=== PATIENT | female | born 1950 | race Caucasian/White ===

== ENCOUNTER 2022-10-23 18:53 | Emergency (ER) | payer OTHER, SELFPAY ==
[2022-10-23 19:00] VITALS: BP 128/68; PULSE 64; RESP 18; TEMP 36.3; O2SAT 100
[2022-10-23 20:10] VITALS: BP 125/58; PULSE 74; RESP 18; O2SAT 98
--- NOTE | 2022-10-23 20:25 | ED_ITS ---
HPI - Weakness General Chief complaint: Headache Stated complaint: GENERAL WEAKNESS Time Seen by Provider: 10/23/22 20:24 Source: patient and family Mode of arrival: walk-in Limitations: no limitations History of Present Illness HPI Narrative: history of headache. Always behind the right eye. On and off since july 2022. States usually she can go to sleep and the headache resolves. Same SARABIA now for 3 days. Also feels weak. No energy. Does have nausea. No focal weakness. No chest pain or shortness of breath. denies neck pain or stiffness MD Complaint: Reports generalized weakness Onset (ago): day(s) Associated symptoms: Reports nausea/vomiting Related Data Home Medications Medication Instructions Recorded Confirmed apixaban 5 mg tablet (Eliquis) 5 mg PO Q12H 10/23/22 10/23/22 atorvastatin 40 mg tablet 40 mg PO DAILY 10/23/22 10/23/22 carvedilol 12.5 mg tablet 12.5 mg PO Q12H 10/23/22 10/23/22 diltiazem HCl 120 mg 120 mg PO Q24H 10/23/22 10/23/22 capsule,extended release 24 hr duloxetine 60 mg capsule,delayed 60 mg PO DAILY 10/23/22 10/23/22 release famotidine 20 mg tablet 20 mg PO PRN GERD 10/23/22 Allergies Allergy/AdvReac Type Severity Reaction Status Date / Time latex Allergy Unknown Verified 10/23/22 19:09 Review of Systems ROS Status of ROS 10 or more systems reviewed and unremarkable except as noted in history and below [facility] Social History Smoking status: Never smoker Exam Constitutional Vital Signs - 24 hr 10/23/22 19:00 10/23/22 20:10 Temperature 97.3 F L Pulse Rate [Monitor] 64 74 Respiratory Rate 18 18 Blood Pressure [Right Arm] 128/68 H 125/58 H Pulse Oximetry 100 98 Oxygen Delivery Method Room Air Room Air HENCA Common normals: normocephalic and head/scalp atraumatic Eye Common normals: PERRL, EOMs intact bilaterally and conjunctivae normal Eyelid: eyelids normal Conjunctiva: conjunctiva(e) normal Neck & C-Spine Common normals: full ROM and no lymphadenopathy General: normal visual inspection Chest Common normals: inspection of chest normal Respiratory Common normals: no use of accessory muscles and clear to auscultation bilaterally Cardio Common normals: regular rhythm, S2 normal heart sound (mechanical valve sound) and no murmurs GI Common normals: Normal to inspection, nondistended, normoactive bowel sounds present Palpation: tender Other: mild tenderness LLQ Back & Pelvis Common normals: no CVA tenderness Extremity Common normals: normal to inspection and no joint enlargement Neuro Common normals: oriented x3, CN's II-XII intact bilaterally, moves all extremities, no focal motor deficits and no sensory deficits noted Psych Common normals: mental status grossly normal Course Vital Signs Vital signs: Vital Signs Temperature 97.3 F L 10/23/22 19:00 Pulse Rate 64 10/23/22 19:00 Respiratory Rate 18 10/23/22 19:00 Blood Pressure 128/68 H 10/23/22 19:00 Pulse Oximetry 100 10/23/22 19:00 Oxygen Delivery Method Room Air 10/23/22 19:00 Temperature 97.3 F L 10/23/22 19:00 Pulse Rate 74 10/23/22 20:10 Respiratory Rate 18 10/23/22 20:10 Blood Pressure 125/58 H 10/23/22 20:10 Pulse Oximetry 98 10/23/22 20:10 Oxygen Delivery Method Room Air 10/23/22 20:10 MDM - Weakness MDM Narrative Medical decision making narrative: patient is feeling better. Headache is much improved. she is requesting discharge at this time. POC blood sugar elevated at 200 and will need follow up. she also has elevated creat that will need follow up. Patient and her informed of this information and will follow up with her doctor Lab Data Labs: Lab Results 10/23/22 10/23/22 10/23/22 Range/Units 20:20 20:45 22:54 WBC 10.9 (4.0-11.0) 10^3/uL RBC 4.09 L (4.20-5.40) 10^6/uL Hgb 11.8 L (12.0-16.0) g/dL Hct 35.2 L (36.0-48.0) % MCV 86.1 (81.0-99.0) fL MCH 28.9 (26.7-34.0) pg MCHC 33.5 (29.9-35.2) g/dL RDW 12.5 (11.0-15.0) % Plt Count 223 (150-450) 10^3/uL MPV 9.1 L (9.5-13.5) fL Neut % (Auto) 57.5 (43.0-75.0) % Lymph % (Auto) 30.5 (20.5-60.0) % Storey % (Auto) 8.4 (1.7-12.0) % Eos % (Auto) 2.4 (0.9-7.0) % Baso % (Auto) 0.8 (0.2-2.0) % Neut # (Auto) 6.3 (1.4-6.5) 10^3/uL Lymph # (Auto) 3.3 (1.2-3.8) 10^3/uL [place] # (Auto) 0.9 H (0.3-0.8) 10^3/uL Eos # (Auto) 0.3 (0.0-0.7) 10^3/uL Baso # (Auto) 0.1 (0.0-0.1) 10^3/uL Sodium 138 (136-145) mmol/L Potassium 4.1 (3.5-5.1) mmol/L Chloride 101 (98-107) mmol/L Carbon Dioxide 29.9 (21.0-32.0) mmol/L Anion Gap 11.2 BUN 21.0 H (7.0-18.0) mg/dL Creatinine 1.86 H (0.55-1.02) mg/dL Est GFR ( Amer) 32 L (>=60) Est GFR (Non-Af Amer) 27 L (>=60) BUN/Creatinine Ratio 11.3 Glucose 68 L (74-106) mg/dL Calcium 9.9 (8.5-10.1) mg/dL Urine Color Lt. yellow (YELLOW) Urine Clarity Clear (CLEAR) Urine pH 6.5 (5.0-9.0) Ur Specific Mammoth 1.010 (1.005-1.025) Urine Protein Negative (NEG/TRACE) mg/dL Urine Glucose (UA) Negative (NEGATIVE) mg/dL Urine Ketones Negative (NEGATIVE) mg/dL Urine Occult Blood Negative (NEGATIVE) Urine Nitrite Negative (NEGATIVE) Urine Bilirubin Negative (NEGATIVE) Urine Urobilinogen 0.2 (0.2-1.0) EU/dL Ur Leukocyte Esterase Small A (NEGATIVE) Urine RBC 0-2 (0-2) #/HPF Urine WBC 0-2 A (NONE SEEN) #/HPF Ur Squamous Epith Cells Few A (NONE/RARE) #/LPF Ur Culture Indicated? No POC Glucose 209 H (74-106) mg/dL Discharge Plan Discharge Chief Complaint: Headache Clinical Impression: Migraine, Headache Patient Disposition: Home, Self-Care Prescriptions / Home Meds: No Action Eliquis 5 mg tablet 5 mg PO Q12H atorvastatin 40 mg tablet 40 mg PO DAILY carvedilol 12.5 mg tablet 12.5 mg PO Q12H diltiazem HCl 120 mg capsule,extended release 24hr 120 mg PO Q24H duloxetine 60 mg capsule,delayed release(DR/EC) 60 mg PO DAILY famotidine 20 mg tablet 20 mg PO PRN (Reason: GERD) Instructions: Migraine Headache (ED) Stand Alone Forms: Portal Instructions Referrals: GÓMEZ HERNANDEZ [Primary Care Provider] - 1 week Follow Up Appointments: follow up with family doctor next week for recheck. also need renal function and glucose rechecked
--- NOTE | 2022-10-23 20:40 | CT_ITS ---
The [address] [address] Patient Name: DIONICIO DELANEY MRN: [id number] date: 1950 Sex: F Assigned Patient Location: ER Current Patient Location: ER Accession/Order Number: [id number] Exam Date: 10/23/2022 21:07 Report Date: 10/23/2022 22:09 At the request of: PETAR SHEEHAN Procedure: CT head/brain wo con NONCONTRAST CT SCAN OF THE HEAD CT head/brain wo con HISTORY:: headache in a 71-year-old female TECHNIQUE: Multiple axial images are taken from the level the vertex down to the base of the skull without the use of IV contrast. Images were then reconstructed in the sagittal and coronal planes. This exam was performed according to our departmental dose-optimization program which includes use of Automated Exposure Control, adjustment of the mA and/or kV according to patient size and/or use of iterative reconstruction technique. COMPARISON: 12/29/2021 CT head FINDINGS: Brain Parenchyma: Encephalomalacia is demonstrated in the inferior right temporal lobe as well as the posterior right temporal lobe. There is global, diffuse atrophy with periventricular decreased white matter attenuation. No intracranial mass. No intracranial hemorrhage. Posterior fossa: Stable foci of decreased attenuation within the midbrain and cristi Midline shift: None Extra-axial fluid collection: None Ventricles: Normal. Mastoid air cells: Normal. Sinuses: Minimal mucosal thickening of ethmoid sinuses. Cranium: No depressed skull fracture. Soft tissues: Normal. Orbits: Normal. IMPRESSION: 1. Chronic small vessel ischemic change. 2. Stable evidence of old stroke in the right MCA distribution. 3. If symptoms continue, MRI may help better delineate. Electronically authenticated by: SATHYA SANTOYO Date: 10/23/2022 22:09
--- NOTE | 2022-10-23 20:40 | PC.NURSE ---
Up to bathroom.
--- NOTE | 2022-10-23 20:41 | CT_ITS ---
The [address] [address] Patient Name: DIONICIO DELANEY MRN: [id number] date: 1950 Sex: F Assigned Patient Location: ER Current Patient Location: ER Accession/Order Number: [id number] Exam Date: 10/23/2022 22:29 Report Date: 10/23/2022 23:35 At the request of: PETAR SHEEHAN Procedure: CT abdomen pelvis w con EXAMINATION:CT abdomen pelvis w con INDICATION:abdominal pain COMPARISON:None TECHNIQUE:Multiple thin section transaxial slices were acquired through the abdomen and pelvis without intravenous contrast. Coronal and sagittal reconstructed images were reviewed. Oral contrastWas not administered. FINDINGS: LOWER CHEST: Dependent changes are present in the lung bases, left greater than right. The patient is status post median sternotomy. There are mitral annulus calcifications in the heart. LIVER: The liver is unremarkable. GALLBLADDER AND BILIARY SYSTEM: No obvious ductal dilation. The gallbladder surgically absent. SPLEEN: The spleen is unremarkable. PANCREAS: The pancreas is unremarkable. ADRENAL GLANDS: The adrenal glands are unremarkable. KIDNEYS AND URETERS: There is no hydronephrosis of the kidneys.No obstructing urologic calcifications are present. VASCULATURE: There is atherosclerotic plaque in the abdominal aorta without aneurysmal dilation. PERITONEUM/RETROPERITONEUM: Peritoneum/retroperitoneum is unremarkable. LYMPH NODES: No suspicious lymphadenopathy. GASTROINTESTINAL TRACT: The bowel is normal in caliber.There is chronic colonic diverticulosis of the colon without acute inflammation.The appendix is not well delineated and may be absent or diminutive. BLADDER: The urinary bladder is unremarkable. REPRODUCTIVE SYSTEM: The uterus is absent. BODY WALL: Unremarkable. BONES: There is grade 1 anterolisthesis of L4-L5. IMPRESSION: 1. No definitive acute inflammatory process or obstructive uropathy is identified in the abdomen and pelvis. Electronically authenticated by: DINORA DUNNE Date: 10/23/2022 23:35
[2022-10-23 20:48] LABS: Basophils Absolute Auto 0.1 10^3/uL (0.0-0.1); Basophils Percent Auto 0.8 % (0.2-2.0); Eosinophils Absolute Auto 0.3 10^3/uL (0.0-0.7); Eosinophils Percent Auto 2.4 % (0.9-7.0); Hematocrit 35.2 % (36.0-48.0); Hemoglobin 11.8 g/dL (12.0-16.0); Immature Granulocytes Abs Auto 0.04 10^3/uL (0.00-0.03); Immature Granulocytes Pct Auto 0.4 % (0.0-0.5); Lymphocytes Absolute Auto 3.3 10^3/uL (1.2-3.8); Lymphocytes Percent Auto 30.5 % (20.5-60.0); Mean Corpuscular HGB Conc 33.5 g/dL (29.9-35.2); Mean Corpuscular Hemoglobin 28.9 pg (26.7-34.0); Mean Corpuscular Volume 86.1 fL (81.0-99.0); Mean Platelet Volume 9.1 fL (9.5-13.5); Monocytes Absolute Auto 0.9 10^3/uL (0.3-0.8); Monocytes Percent Auto 8.4 % (1.7-12.0); Neutrophils Absolute Auto 6.3 10^3/uL (1.4-6.5); Neutrophils Percent Auto 57.5 % (43.0-75.0); Platelet Count 223 10^3/uL (150-450); Red Blood Count 4.09 10^6/uL (4.20-5.40); Red Cell Distribution Width 12.5 % (11.0-15.0); White Blood Count 10.9 10^3/uL (4.0-11.0)
[2022-10-23 20:56] LABS: Anion Gap 11.2; BUN Creatinine Ratio 11.3; Calcium 9.9 mg/dL (8.5-10.1); Carbon Dioxide 29.9 mmol/L (21.0-32.0); Chloride 101 mmol/L (98-107); Estimated GFR (African America 32 (>=60); Estimated GFR (Non-African Ame 27 (>=60); Glucose 68 mg/dL (74-106); Potassium 4.1 mmol/L (3.5-5.1); Sodium 138 mmol/L (136-145)
[2022-10-23 20:56] LABS: Bilirubin Urine NEGATIVE (NEGATIVE); Blood Urine NEGATIVE (NEGATIVE); Clarity Urine CLEAR (CLEAR); Color Urine LT. YELLOW (YELLOW); Glucose Urine UA NEGATIVE (NEGATIVE); Ketones Urine NEGATIVE (NEGATIVE); Leukocyte Esterase Urine SMALL (NEGATIVE); Nitrite Urine NEGATIVE (NEGATIVE); Protein Urine NEGATIVE (NEG/TRACE); Urobilinogen Urine 0.2 EU/dL (0.2-1.0); pH Urine 6.5 (5.0-9.0)
[2022-10-23 21:07] LABS: Bacteria Urine NONE SEEN #/HPF (NONE SEEN); Cast Seen? NONE SEEN #/LPF (NONE SEEN); Crystals Seen? None Seen #/HPF (None Seen); Mucus Urine NONE SEEN (NONE SEEN); RBC Urine 0-2 #/HPF (0-2); Squamous Epithelial Cell Urine FEW #/LPF (NONE/RARE); Urine Culture Indicated NO; WBC Urine 0-2 #/HPF (NONE SEEN)
[2022-10-23] MEDS: METHYLPREDNISOLONE SOD SUCC PF 125 MG/2 ML VIAL IVP (21:23)
[2022-10-23] MEDS: DIPHENHYDRAMINE HCL 50 MG/ML (1ML) VIAL IV (21:23)
[2022-10-23] MEDS: METOCLOPRAMIDE HCL 10 MG/2 ML VIAL IVP (21:23)
[2022-10-23 22:58] LABS: Glucometer 209 mg/dL (74-106)
== END 2022-10-23 23:57 | disposition home or self-care (01) ==
PROVIDERS: Emergency Provider Internal Medicine; PCP Family Medicine
DX: G43.909 Migraine, unspecified, not intractable, without status migrainosus (principal)
CPT/HCPCS: 36415; 70450; 74177; 80048; 81001; 85025; 96374; 96375; 99285; J2930; Q9966

== ENCOUNTER 2022-11-19 13:26 | Outpatient (OUT) | payer OTHER, SELFPAY ==
[2022-11-19 12:58] LABS: Allen Test POSITIVE (POSITIVE); Base Excess ABG 3.4 mmol/L (-2.0-2.0); HCO3 ABG 27.6 mmol/L (22.0-26.0); Oxygen Saturation ABG 96.7 %; PO2 ABG 78.2 mmHg (80.0-100.0); pH ABG 7.436 (7.350-7.450)
[2022-11-19 12:59] LABS: O2 Mode RA; Puncture Site LR
[2022-11-19 13:14] LABS: Basophils Absolute Auto 0.1 10^3/uL (0.0-0.1); Basophils Percent Auto 0.7 % (0.2-2.0); Eosinophils Absolute Auto 0.2 10^3/uL (0.0-0.7); Eosinophils Percent Auto 2.5 % (0.9-7.0); Hematocrit 32.7 % (36.0-48.0); Hemoglobin 10.8 g/dL (12.0-16.0); Immature Granulocytes Abs Auto 0.02 10^3/uL (0.00-0.03); Immature Granulocytes Pct Auto 0.3 % (0.0-0.5); Lymphocytes Percent Auto 26.3 % (20.5-60.0); Mean Corpuscular Hemoglobin 28.5 pg (26.7-34.0); Mean Corpuscular Volume 86.3 fL (81.0-99.0); Mean Platelet Volume 8.9 fL (9.5-13.5); Monocytes Absolute Auto 0.5 10^3/uL (0.3-0.8); Monocytes Percent Auto 6.4 % (1.7-12.0); Neutrophils Absolute Auto 4.9 10^3/uL (1.4-6.5); Neutrophils Percent Auto 63.8 % (43.0-75.0); Platelet Count 159 10^3/uL (150-450); Red Blood Count 3.79 10^6/uL (4.20-5.40); Red Cell Distribution Width 12.3 % (11.0-15.0); White Blood Count 7.6 10^3/uL (4.0-11.0)
[2022-11-19 13:35] LABS: Ammonia <10 umol/L (11-32)
[2022-11-19 13:39] LABS: Lactate/Lactic Acid 1.7 mmol/L (0.4-2.0)
[2022-11-19 13:45] LABS: Alanine Aminotransferase 24 U/L (14-59); Albumin Level 3.7 g/dL (3.4-5.0); Alkaline Phosphatase 80 U/L (46-116); Anion Gap 10.2; Aspartate Amino Transferase 18 U/L (15-37); BUN Creatinine Ratio 10.9; Bilirubin Total 0.3 mg/dL (0.2-1.0); Calcium 9.7 mg/dL (8.5-10.1); Chloride 103 mmol/L (98-107); Estimated GFR (African America 37 (>=60); Estimated GFR (Non-African Ame 30 (>=60); Globulin 3.7 g/dL; Glucose 129 mg/dL (74-106); Potassium 4.2 mmol/L (3.5-5.1); Sodium 139 mmol/L (136-145); Total Protein 7.4 g/dL (6.4-8.2)
--- NOTE | 2022-11-19 14:00 | MR_ITS ---
The [address] [address] Patient Name: DIONICOI DELANEY MRN: [id number] date: 1950 Sex: F Assigned Patient Location: CARD Current Patient Location: CARD Accession/Order Number: [id number] Exam Date: 11/19/2022 14:00 Report Date: 11/19/2022 15:26 At the request of: GÓMEZ HERNANDEZ Procedure: MR head/brain wo con MR head/brain wo con CLINICAL HISTORY: Encephalopathy G93.40. Extreme fatigue, diabetes, head and neck pain. COMPARISON: 10/23/2022. TECHNIQUE: Noncontrast MR brain with the following sequences: Sagittal T1, axial diffusion and ADC map, axial FLAIR, axial T2, axial gradient. FINDINGS: At baseline there is chronic posterior right MCA territory infarct with extensive encephalomalacia posterior inferior right parietal and right temporal lobes. Overall appearance is similar to prior. There is also now superimposed acute infarct/restricted diffusion predominantly centered at the right periventricular parietal lobe and deep white matter with a few additional punctate foci of scattered right frontal and posterior cortical and subcortical infarcts. Surrounding acute cytotoxic edema. Global volume loss and ex vacuo prominence of the ventricles. Additional scattered chronic moderate to severe multifocal periventricular centrum semiovale white matter T2 hyperintensities are nonspecific but likely from small vessel ischemic disease. No evidence of mass or midline shift. No extra-axial fluid collection or acute bleed. Orbits, scalp, calvarium unremarkable. Visualized paranasal sinuses are well aerated. Mastoid air cells are well aerated. IMPRESSION: Acute right parietal periventricular infarct/restricted diffusion with associated edema. No evidence of acute bleed. A few additional scattered punctate slightly more superior right parietal cortical and subcortical infarct. Large chronic and unchanged right posterior inferior MCA territory infarct similar to prior. Additional chronic small vessel ischemic changes and global volume loss. Electronically authenticated by: VIC LEON Date: 11/19/2022 15:26
== END 2022-11-19 13:27 | disposition home or self-care (01) ==
LOC: CARD 13:27
PROVIDERS: PCP Family Medicine; Visit Provider Family Medicine
DX: I12.9 Hypertensive chronic kidney disease with stage 1 through stage 4 chronic kidney disease, or unspecified chronic kidney disease (principal); N18.4 Chronic kidney disease, stage 4 (severe); D64.9 Anemia, unspecified; G93.40 Encephalopathy, unspecified
CPT/HCPCS: 36415; 36600; 70551; 80053; 82140; 82805; 83605; 85025

== ENCOUNTER 2022-11-19 15:44 | Observation (INO) | payer OTHER, SELFPAY ==
[2022-11-19] VITALS (8 sets, daily range): BP systolic 128–176; BP diastolic 66–85; PULSE 63–79; RESP 14–18; TEMP 36.9–37.1; O2SAT 96–100; BMI 28.0; BMI 29.2
[2022-11-19 16:03] LABS: Glucometer 77 mg/dL (74-106)
--- NOTE | 2022-11-19 16:21 | ECG_ITS ---
The [facility] Test Date: 2022-11-19 Pat Name: DIONICIO DELANEY Department: Room: - Gender: Female [employer]: : 1950 Requested By: GÓMEZ HERNANDEZ Order Number: [id number] Reading MD: CEDRIC PENNY Measurements Intervals [place] Rate: 63 P: 43 AL: 218 QRS: 21 QRSD: 86 T: 51 QT: 414 QTc: 421 Interpretive Statements 1100 Sinus rhythm 2231 First degree AV block 9150 abnormal ECG No previous ECG available for comparison Electronically Signed On 11-21-2022 11:40:50 EDT by CEDRIC PENNY
--- NOTE | 2022-11-19 16:22 | ED.GENADUL1 ---
HPI - General Adult General Chief complaint: Headache Stated complaint: had mri-shows stroke Time Seen by Provider: 11/19/22 16:10 Source: patient Mode of arrival: Wheelchair Limitations: no limitations History of Present Illness HPI narrative: 71-year-old female presents to the emergency department for abnormal MRI. She had an outpatient MRI ordered by her PCP today and it showed an acute stroke. She's been tired for a month and otherwise has not had any symptoms. She hasn't had speech issues or arm or leg weakness. Her states she is acting normally. She doesn't have a headache. No fever or vomiting. Related Data Home Medications Medication Instructions Recorded Confirmed apixaban 5 mg tablet (Eliquis) 5 mg PO Q12H 10/23/22 10/23/22 atorvastatin 40 mg tablet 40 mg PO DAILY 10/23/22 10/23/22 carvedilol 12.5 mg tablet 12.5 mg PO Q12H 10/23/22 10/23/22 diltiazem HCl 120 mg 120 mg PO Q24H 10/23/22 10/23/22 capsule,extended release 24 hr duloxetine 60 mg capsule,delayed 60 mg PO DAILY 10/23/22 10/23/22 release famotidine 20 mg tablet 20 mg PO PRN GERD 10/23/22 Allergies Allergy/AdvReac Type Severity Reaction Status Date / Time latex Allergy Unknown Verified 10/23/22 19:09 Review of Systems ROS Narrative A ten point review of systems is negative except as noted above. Constitutional Reports: fatigue PFSH PFSH Social History Smoking status: Never smoker Exam Narrative Exam Narrative: Nurses note and vital signs reviewed and patient is not hypoxic. General: The patient appears well and in no apparent distress. Patient is resting comfortably on cart. Skin: Warm, dry, no pallor noted. There is no rash noted. Head: Normocephalic, atraumatic Eye: Normal conjunctiva, no drainage, EOMI. PERRL Ears, Nose, Mouth, and Throat: oral mucosa is moist. Nares patent. Cardiovascular: Regular Rate and Rhythm Respiratory: Patient is in no distress, no accessory muscle use, lungs are clear to auscultation, no wheezing, rales or rhonchi Back: non-tender GI: soft and nontender Musculoskeletal: The patient has no evidence of calf tenderness, no pitting edema, symmetrical pulses noted bilaterally Neurological: A&O x4, normal speech; upper and lower extremity strength five out five and symmetric Psychiatric: Cooperative NIH score is zero Constitutional Vital Signs - 24 hr 11/19/22 15:59 11/19/22 16:28 11/19/22 16:28 Temperature 98.5 F Pulse Rate 64 Pulse Rate [Monitor] 63 Respiratory Rate 16 14 Blood Pressure Blood Pressure [Left Arm] 167/76 H Pulse Oximetry 100 100 Oxygen Delivery Method Room Air Room Air 11/19/22 17:28 11/19/22 17:38 11/19/22 18:20 Temperature Pulse Rate 68 Pulse Rate [Monitor] Respiratory Rate 14 Blood Pressure 162/83 H 176/85 H Blood Pressure [Left Arm] Pulse Oximetry Oxygen Delivery Method Course Vital Signs Vital signs: Vital Signs Temperature 98.5 F 11/19/22 15:59 Pulse Rate 63 11/19/22 15:59 Respiratory Rate 16 11/19/22 15:59 Blood Pressure 167/76 H 11/19/22 15:59 Pulse Oximetry 100 11/19/22 15:59 Oxygen Delivery Method Room Air 11/19/22 15:59 Temperature 98.5 F 11/19/22 15:59 Pulse Rate 68 11/19/22 17:28 Respiratory Rate 14 11/19/22 17:28 Blood Pressure 176/85 H 11/19/22 18:20 Pulse Oximetry 100 11/19/22 16:28 Oxygen Delivery Method Room Air 11/19/22 16:28 Medical Decision Making MDM Narrative Medical decision making narrative: MRI and CTA head and neck are discussed with Dr. Salguero and he recommends that the patient be admitted here and observed with telemetry stroke that he'll consult in the morning. We will continue her Eliquis and blood pressure control keeping her systolic blood pressure below 220. Findings are discussed with the patient and her . Differential Diagnosis Differential Diagnosis: stroke, transient ischemic attack, anemia, a K eye Lab Data Lab results reviewed: Yes I reviewed the patient's lab results Labs: Lab Results 11/19/22 11/19/22 Range/Units 16:01 16:10 PT 10.2 (9.0-11.6) sec INR 0.96 APTT 25.9 (22.3-36.2) sec Sodium 140 (136-145) mmol/L Potassium 3.8 (3.5-5.1) mmol/L Chloride 102 (98-107) mmol/L Carbon Dioxide 31.5 (21.0-32.0) mmol/L Anion Gap 10.3 BUN 18.0 (7.0-18.0) mg/dL Creatinine 1.59 H (0.55-1.02) mg/dL Est GFR ( Amer) 39 L (>=60) Est GFR (Non-Af Amer) 32 L (>=60) BUN/Creatinine Ratio 11.3 Glucose 71 L (74-106) mg/dL Calcium 10.4 H (8.5-10.1) mg/dL POC Glucose 77 (74-106) mg/dL Imaging Data CTA head and neck: Radiologist's impression: Procedure: CT angio head EXAM: CT angio head, CT angio neck HISTORY: Acute right parietal infarct on the brain MRI. COMPARISON: Brain MRI on 11/19/2022. MRA of the head on 08/12/2021. TECHNIQUE: Following IV administration of iodinated contrast, axial CT scans of the head and neck were obtained. MPR and MIP images images were obtained. Carotid stenosis is based on NASCET criteria. Dose reduction techniques were achieved by using automated exposure control and/or adjustment of mA and/or kV according to patient size and/or use of iterative reconstruction technique. FINDINGS: CTA OF THE HEAD: A 9 mm segment of occlusion in the proximal right M2 posterior division with resultant smaller caliber of the rest of the more distal branches. This segment of occlusion appears longer compared to 08/12/2021 MRA of the head. A focal moderate to severe stenosis in the distal right M2 posterior division. 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 Moderate to severe stenosis in the proximal right P2 is unchanged. No aneurysm. CTA OF THE NECK: No abnormal soft tissue mass in the neck. The visualized lungs are clear. Osseous structures are intact. Aortic arch shows no aneurysm. The great vessels of the aortic arch show no significant stenosis. 50% diameter stenosis in the in the proximal right subclavian artery with the stenotic segment measuring about 5.9 mm and the normal distal segment, 12 mm. Vertebral arteries show no significant stenosis or dissection. Common carotids and right internal carotid show no significant stenosis. There is about 50% diameter stenosis of the origin of the left internal carotid secondary to an eccentric calcified plaque with the stenotic segment measuring about 2.3 mm and the normal distal segment, 4.7 mm. IMPRESSION: A 9 mm segment of occlusion in the proximal right M2 posterior division is longer compared to 08/12/2021 MRA of the head. It results in small caliber of the rest of the more distal branches of the right M2 posterior division. A focal moderate to severe stenosis in the distal right M2 posterior division. 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 Moderate to severe stenosis of the proximal right P2 is unchanged. About 50% diameter stenosis of the origin of the left internal carotid. The right common carotid and internal carotid show no significant stenosis. Vertebral arteries show no significant stenosis or dissection. 50% diameter stenosis in the proximal right subclavian artery. Electronically authenticated by: MARGARITA WATKINS Date: 11/19/2022 17:55 ECG Data Attestation: I personally reviewed and interpreted this ECG as follows: (EKG on my interpretation shows sinus rhythm with a rate of 63) Discharge Plan Discharge Chief Complaint: Headache Clinical Impression: Acute CVA (cerebrovascular accident) Patient Disposition: Admitted As Inpatient Time of Disposition Decision: 18:26 Condition: Good
--- NOTE | 2022-11-19 16:34 | CT_ITS ---
[address] [address] Patient Name: DIONICIO DELANEY MRN: [id number] date: 1950 Sex: F Assigned Patient Location: ER Current Patient Location: Accession/Order Number: [id number] Exam Date: 11/19/2022 16:50 Report Date: 11/19/2022 17:55 At the request of: MANISHA ARRIAGA Procedure: CT angio head EXAM: CT angio head, CT angio neck HISTORY: Acute right parietal infarct on the brain MRI. COMPARISON: Brain MRI on 11/19/2022. MRA of the head on 08/12/2021. TECHNIQUE: Following IV administration of iodinated contrast, axial CT scans of the head and neck were obtained. MPR and MIP images images were obtained. Carotid stenosis is based on NASCET criteria. Dose reduction techniques were achieved by using automated exposure control and/or adjustment of mA and/or kV according to patient size and/or use of iterative reconstruction technique. FINDINGS: CTA OF THE HEAD: A 9 mm segment of occlusion in the proximal right M2 posterior division with resultant smaller caliber of the rest of the more distal branches. This segment of occlusion appears longer compared to 08/12/2021 MRA of the head. A focal moderate to severe stenosis in the distal right M2 posterior division. 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 Moderate to severe stenosis in the proximal right P2 is unchanged. No aneurysm. CTA OF THE NECK: No abnormal soft tissue mass in the neck. The visualized lungs are clear. Osseous structures are intact. Aortic arch shows no aneurysm. The great vessels of the aortic arch show no significant stenosis. 50% diameter stenosis in the in the proximal right subclavian artery with the stenotic segment measuring about 5.9 mm and the normal distal segment, 12 mm. Vertebral arteries show no significant stenosis or dissection. Common carotids and right internal carotid show no significant stenosis. There is about 50% diameter stenosis of the origin of the left internal carotid secondary to an eccentric calcified plaque with the stenotic segment measuring about 2.3 mm and the normal distal segment, 4.7 mm. IMPRESSION: A 9 mm segment of occlusion in the proximal right M2 posterior division is longer compared to 08/12/2021 MRA of the head. It results in small caliber of the rest of the more distal branches of the right M2 posterior division. A focal moderate to severe stenosis in the distal right M2 posterior division. 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 Moderate to severe stenosis of the proximal right P2 is unchanged. About 50% diameter stenosis of the origin of the left internal carotid. The right common carotid and internal carotid show no significant stenosis. Vertebral arteries show no significant stenosis or dissection. 50% diameter stenosis in the proximal right subclavian artery. Electronically authenticated by: MARGARITA WATKINS Date: 11/19/2022 17:55
[2022-11-19 16:44] LABS: Anion Gap 10.3; BUN Creatinine Ratio 11.3; Calcium 10.4 mg/dL (8.5-10.1); Carbon Dioxide 31.5 mmol/L (21.0-32.0); Chloride 102 mmol/L (98-107); Estimated GFR (African America 39 (>=60); Estimated GFR (Non-African Ame 32 (>=60); Glucose 71 mg/dL (74-106); INR 0.96; Partial Thromboplastin Time 25.9 sec (22.3-36.2); Potassium 3.8 mmol/L (3.5-5.1); Prothrombin Time 10.2 sec (9.0-11.6); Sodium 140 mmol/L (136-145)
--- NOTE | 2022-11-19 16:44 | XR_ITS ---
The [address] [address] Patient Name: DIONICIO DELANEY MRN: [id number] date: 1950 Sex: F Assigned Patient Location: ER Current Patient Location: ER Accession/Order Number: [id number] Exam Date: 11/19/2022 16:40 Report Date: 11/19/2022 16:54 At the request of: MANISHA ARRIAGA Procedure: XR chest 1V EXAM: XR chest 1V HISTORY: cva COMPARISON: 07/25/2022. TECHNIQUE: Single view of the chest FINDINGS: Heart size normal. Elevated left hemidiaphragm. Mild left basilar opacities obscure in the left hemidiaphragm. No other evidence of consolidation. No pleural effusion. No pneumothorax. No vascular congestion. Cardiac valve replacement. IMPRESSION: Mild left basilar atelectasis/consolidation. Electronically authenticated by: RIGOBERTO MULLINS Date: 11/19/2022 16:54
--- NOTE | 2022-11-19 16:56 | CT_ITS ---
[address] [address] Patient Name: DIONICIO DELANEY MRN: [id number] date: 1950 Sex: F Assigned Patient Location: ER Current Patient Location: Accession/Order Number: [id number] Exam Date: 11/19/2022 16:50 Report Date: 11/19/2022 17:55 At the request of: MANISHA ARRIAGA Procedure: CT angio neck EXAM: CT angio head, CT angio neck HISTORY: Acute right parietal infarct on the brain MRI. COMPARISON: Brain MRI on 11/19/2022. MRA of the head on 08/12/2021. TECHNIQUE: Following IV administration of iodinated contrast, axial CT scans of the head and neck were obtained. MPR and MIP images images were obtained. Carotid stenosis is based on NASCET criteria. Dose reduction techniques were achieved by using automated exposure control and/or adjustment of mA and/or kV according to patient size and/or use of iterative reconstruction technique. FINDINGS: CTA OF THE HEAD: A 9 mm segment of occlusion in the proximal right M2 posterior division with resultant smaller caliber of the rest of the more distal branches. This segment of occlusion appears longer compared to 08/12/2021 MRA of the head. A focal moderate to severe stenosis in the distal right M2 posterior division. 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 Moderate to severe stenosis in the proximal right P2 is unchanged. No aneurysm. CTA OF THE NECK: No abnormal soft tissue mass in the neck. The visualized lungs are clear. Osseous structures are intact. Aortic arch shows no aneurysm. The great vessels of the aortic arch show no significant stenosis. 50% diameter stenosis in the in the proximal right subclavian artery with the stenotic segment measuring about 5.9 mm and the normal distal segment, 12 mm. Vertebral arteries show no significant stenosis or dissection. Common carotids and right internal carotid show no significant stenosis. There is about 50% diameter stenosis of the origin of the left internal carotid secondary to an eccentric calcified plaque with the stenotic segment measuring about 2.3 mm and the normal distal segment, 4.7 mm. IMPRESSION: A 9 mm segment of occlusion in the proximal right M2 posterior division is longer compared to 08/12/2021 MRA of the head. It results in small caliber of the rest of the more distal branches of the right M2 posterior division. A focal moderate to severe stenosis in the distal right M2 posterior division. 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 Moderate to severe stenosis of the proximal right P2 is unchanged. About 50% diameter stenosis of the origin of the left internal carotid. The right common carotid and internal carotid show no significant stenosis. Vertebral arteries show no significant stenosis or dissection. 50% diameter stenosis in the proximal right subclavian artery. Electronically authenticated by: MARGARITA WATKINS Date: 11/19/2022 17:55
--- NOTE | 2022-11-19 18:29 | ED.GENADUL1 ---
HPI - General Adult General Chief complaint: Headache Stated complaint: had mri-shows stroke Time Seen by Provider: 11/19/22 16:10 Source: patient Mode of arrival: Wheelchair Limitations: no limitations History of Present Illness HPI narrative: 71-year-old female presents because she had an abnormal MRI. For a month she has been fatigued. Her doctor did some outpatient blood work and the MRI. It showed an acute stroke and she was directed here. Her only symptom is fatigue. She's had no speech issues or motor or sensory deficits. No trauma fever or vomiting. She does not complain of shortness of breath or abdominal pain. Related Data Home Medications Medication Instructions Recorded Confirmed apixaban 5 mg tablet (Eliquis) 5 mg PO Q12H 10/23/22 10/23/22 atorvastatin 40 mg tablet 40 mg PO DAILY 10/23/22 10/23/22 carvedilol 12.5 mg tablet 12.5 mg PO Q12H 10/23/22 10/23/22 diltiazem HCl 120 mg 120 mg PO Q24H 10/23/22 10/23/22 capsule,extended release 24 hr duloxetine 60 mg capsule,delayed 60 mg PO DAILY 10/23/22 10/23/22 release famotidine 20 mg tablet 20 mg PO PRN GERD 10/23/22 Allergies Allergy/AdvReac Type Severity Reaction Status Date / Time latex Allergy Unknown Verified 10/23/22 19:09 Review of Systems ROS Narrative A ten point review of systems is negative except as noted above. Constitutional Reports: fatigue PFSH PFSH Social History Smoking status: Never smoker Exam Narrative Exam Narrative: Nurses note and vital signs reviewed and patient is not hypoxic. General: The patient appears well and in no apparent distress. Patient is resting comfortably on cart. Skin: Warm, dry, no pallor noted. There is no rash noted. Head: Normocephalic, atraumatic Eye: Normal conjunctiva, no drainage, EOMI. PERRL Ears, Nose, Mouth, and Throat: oral mucosa is moist. Nares patent. Mouth without vesicles. Ear canals patent. Tm's without Erythema Cardiovascular: Regular Rate and Rhythm Respiratory: Patient is in no distress, no accessory muscle use, lungs are clear to auscultation, no wheezing, rales or rhonchi Back: non-tender, no CVA tenderness bilaterally to percussion. GI: Normal bowel sounds, no tenderness to palpation, no masses appreciated. No rebound, guarding, or rigidity noted. Musculoskeletal: The patient has no evidence of calf tenderness, no pitting edema, symmetrical pulses noted bilaterally Neurological: A&O x4, normal speech Psychiatric: Cooperative Constitutional Vital Signs - 24 hr 11/19/22 15:59 11/19/22 16:28 11/19/22 16:28 Temperature 98.5 F Pulse Rate 64 Pulse Rate [Monitor] 63 Respiratory Rate 16 14 Blood Pressure Blood Pressure [Left Arm] 167/76 H Pulse Oximetry 100 100 Oxygen Delivery Method Room Air Room Air 11/19/22 17:28 11/19/22 17:38 11/19/22 18:20 Temperature Pulse Rate 68 Pulse Rate [Monitor] Respiratory Rate 14 Blood Pressure 162/83 H 176/85 H Blood Pressure [Left Arm] Pulse Oximetry Oxygen Delivery Method Course Vital Signs Vital signs: Vital Signs Temperature 98.5 F 11/19/22 15:59 Pulse Rate 63 11/19/22 15:59 Respiratory Rate 16 11/19/22 15:59 Blood Pressure 167/76 H 11/19/22 15:59 Pulse Oximetry 100 11/19/22 15:59 Oxygen Delivery Method Room Air 11/19/22 15:59 Temperature 98.5 F 11/19/22 15:59 Pulse Rate 68 11/19/22 17:28 Respiratory Rate 14 11/19/22 17:28 Blood Pressure 176/85 H 11/19/22 18:20 Pulse Oximetry 100 11/19/22 16:28 Oxygen Delivery Method Room Air 11/19/22 16:28 Medical Decision Making Lab Data Labs: Lab Results 11/19/22 11/19/22 Range/Units 16:01 16:10 PT 10.2 (9.0-11.6) sec INR 0.96 APTT 25.9 (22.3-36.2) sec Sodium 140 (136-145) mmol/L Potassium 3.8 (3.5-5.1) mmol/L Chloride 102 (98-107) mmol/L Carbon Dioxide 31.5 (21.0-32.0) mmol/L Anion Gap 10.3 BUN 18.0 (7.0-18.0) mg/dL Creatinine 1.59 H (0.55-1.02) mg/dL Est GFR ( Amer) 39 L (>=60) Est GFR (Non-Af Amer) 32 L (>=60) BUN/Creatinine Ratio 11.3 Glucose 71 L (74-106) mg/dL Calcium 10.4 H (8.5-10.1) mg/dL POC Glucose 77 (74-106) mg/dL Discharge Plan Discharge Chief Complaint: Headache Clinical Impression: Acute CVA (cerebrovascular accident) Patient Disposition: Admitted As Inpatient Time of Disposition Decision: 18:26 Condition: Good
--- NOTE | 2022-11-19 20:00 | PC.NURSE ---
called records supervisor to ask if records supervisor is able to see if room is ready as this nurse has called at 1942 and was told that a nurse would call when ready
--- NOTE | 2022-11-19 20:26 | PC.NURSE ---
Report given to ROGE Islas and ROGE Trejo.
== END 2022-11-19 22:55 | disposition short-term general hospital (02) ==
LOC: ER 20:07 → MS 22:14
PROVIDERS: Emergency Medicine; Admitting Provider Internal Medicine; Emergency Provider Internal Medicine; PCP Family Medicine; Visit Provider Internal Medicine
DX: I63.9 Cerebral infarction, unspecified (principal); I12.9 Hypertensive chronic kidney disease with stage 1 through stage 4 chronic kidney disease, or unspecified chronic kidney disease; G93.40 Encephalopathy, unspecified; N18.4 Chronic kidney disease, stage 4 (severe); D64.9 Anemia, unspecified; Z79.01 Long term (current) use of anticoagulants; Z79.899 Other long term (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
CPT/HCPCS: 36415; 36600; 70496; 70498; 70551; 71045; 80048; 80053; 82140; 82805; 83605; 85025; 85610; 85730; 93005; 99285; G0378; Q9966

== ENCOUNTER 2022-12-03 10:10 | Outpatient (OUT) | payer OTHER, SELFPAY ==
[2022-12-03 11:18] LABS: Basophils Absolute Auto 0.1 10^3/uL (0.0-0.1); Basophils Percent Auto 0.7 % (0.2-2.0); Eosinophils Absolute Auto 0.2 10^3/uL (0.0-0.7); Eosinophils Percent Auto 2.5 % (0.9-7.0); Hematocrit 33.8 % (36.0-48.0); Hemoglobin 11.3 g/dL (12.0-16.0); Immature Granulocytes Abs Auto 0.04 10^3/uL (0.00-0.03); Immature Granulocytes Pct Auto 0.4 % (0.0-0.5); Lymphocytes Absolute Auto 2.7 10^3/uL (1.2-3.8); Lymphocytes Percent Auto 27.3 % (20.5-60.0); Mean Corpuscular HGB Conc 33.4 g/dL (29.9-35.2); Mean Corpuscular Hemoglobin 29.1 pg (26.7-34.0); Mean Corpuscular Volume 87.1 fL (81.0-99.0); Mean Platelet Volume 9.1 fL (9.5-13.5); Monocytes Absolute Auto 0.7 10^3/uL (0.3-0.8); Monocytes Percent Auto 7.2 % (1.7-12.0); Neutrophils Percent Auto 61.9 % (43.0-75.0); Platelet Count 240 10^3/uL (150-450); Red Blood Count 3.88 10^6/uL (4.20-5.40); Red Cell Distribution Width 12.7 % (11.0-15.0); White Blood Count 9.7 10^3/uL (4.0-11.0)
[2022-12-03 11:54] LABS: Alanine Aminotransferase 29 U/L (14-59); Albumin Globulin Ratio 1.1; Albumin Level 3.9 g/dL (3.4-5.0); Alkaline Phosphatase 74 U/L (46-116); Anion Gap 10.5; Aspartate Amino Transferase 19 U/L (15-37); BUN Creatinine Ratio 10.4; Bilirubin Total 0.5 mg/dL (0.2-1.0); Calcium 9.4 mg/dL (8.5-10.1); Carbon Dioxide 30.6 mmol/L (21.0-32.0); Chloride 104 mmol/L (98-107); Chol HDL Ratio 2.6; Cholesterol 153 mg/dL (<=200); Estimated GFR (African America 37 (>=60); Estimated GFR (Non-African Ame 31 (>=60); Globulin 3.5 g/dL; Glucose 112 mg/dL (74-106); HDL Cholesterol 59 mg/dL (40-60); Magnesium 2.1 mg/dL (1.8-2.4); Potassium 4.1 mmol/L (3.5-5.1); Sodium 141 mmol/L (136-145); Thyroid Stimulating Hormone 0.127 uIU/mL (0.358-3.740); Total Protein 7.4 g/dL (6.4-8.2); Triglycerides 158 mg/dL (<=150); VLDL CHOLESTEROL 31.6 mg/dL
== END 2022-12-03 10:11 | disposition home or self-care (01) ==
PROVIDERS: PCP Family Medicine
DX: R00.2 Palpitations (principal); I25.10 Atherosclerotic heart disease of native coronary artery without angina pectoris; E78.5 Hyperlipidemia, unspecified; E55.9 Vitamin D deficiency, unspecified; I48.20 Chronic atrial fibrillation, unspecified
CPT/HCPCS: 36415; 80053; 80061; 82306; 83735; 84443; 85025

== ENCOUNTER 2022-12-11 07:45 | Emergency (ER) | payer OTHER, SELFPAY ==
[2022-12-11 07:52] VITALS: BP 151/104; PULSE 94; RESP 18; TEMP 36.6; O2SAT 99; BMI 25.7
--- NOTE | 2022-12-11 08:00 | ECG_ITS ---
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
--- NOTE | 2022-12-11 08:02 | XR_ITS ---
The [address] [address] Patient Name: DIONICIO DELANEY MRN: [id number] date: 1950 Sex: F Assigned Patient Location: ER Current Patient Location: ER Accession/Order Number: [id number] Exam Date: 12/11/2022 08:48 Report Date: 12/11/2022 09:22 At the request of: LUPE RANDALL Procedure: XR chest 2V EXAM: XR chest 2V HISTORY: weak COMPARISON: None. TECHNIQUE: Frontal view of the chest. FINDINGS: No focal consolidations or pleural effusions. Mild elevation of the left hemidiaphragm. Cardiomediastinal silhouette is unremarkable. Thoracic spine spondylosis. XR/XR chest 2V IMPRESSION: No acute disease. Electronically authenticated by: CAROL ANN WEAVER Date: 12/11/2022 09:22
[2022-12-11 08:33] LABS: Basophils Absolute Auto 0.1 10^3/uL (0.0-0.1); Basophils Percent Auto 0.8 % (0.2-2.0); Eosinophils Absolute Auto 0.2 10^3/uL (0.0-0.7); Hematocrit 38.8 % (36.0-48.0); Hemoglobin 13.6 g/dL (12.0-16.0); Immature Granulocytes Abs Auto 0.02 10^3/uL (0.00-0.03); Immature Granulocytes Pct Auto 0.2 % (0.0-0.5); Lymphocytes Absolute Auto 3.2 10^3/uL (1.2-3.8); Mean Corpuscular HGB Conc 35.1 g/dL (29.9-35.2); Mean Corpuscular Hemoglobin 29.3 pg (26.7-34.0); Mean Corpuscular Volume 83.6 fL (81.0-99.0); Mean Platelet Volume 8.8 fL (9.5-13.5); Monocytes Absolute Auto 0.7 10^3/uL (0.3-0.8); Monocytes Percent Auto 6.6 % (1.7-12.0); Neutrophils Absolute Auto 6.8 10^3/uL (1.4-6.5); Neutrophils Percent Auto 61.4 % (43.0-75.0); Platelet Count 286 10^3/uL (150-450); Red Blood Count 4.64 10^6/uL (4.20-5.40); Red Cell Distribution Width 12.5 % (11.0-15.0)
[2022-12-11] MEDS: 0.9 % SODIUM CHLORIDE 1,000 ML 999 ML IV (08:41)
[2022-12-11] MEDS: ONDANSETRON PF 4 MG/2 ML VIAL IV (08:41)
--- NOTE | 2022-12-11 08:42 | ED.GENADUL1 ---
HPI - General Adult General Chief complaint: Nausea/Vomiting/Diarrhea Stated complaint: NAUSEOUS/FEELS ILL Time Seen by Provider: 12/11/22 08:00 Source: patient Mode of arrival: Wheelchair Limitations: no limitations History of Present Illness HPI narrative: Patient is a 72-year-old female who is presenting with multiple complaints, but overwhelming not feeling well. The initial triage vital signs were elevated with blood pressure, when I was performing HPI and physical exam, patient's blood pressure was 120/91. Patient states she has a overwhelming feeling of not feeling well, she feels nauseated. She recently started a new sleeping medication Requip, several days ago that was prescribed by her PCP, Dr. Richards. Patient was recently in the hospital for stroke in early October. Patient was a home with her . Patient has no headache, no neck pain. No chest pain or shortness of breath. No abdominal pain, nausea with no vomiting. No rash. No recent traveling. No sick contacts. No other acute complaints. . All systems are negative except as noted/marked. All systems reviewed and otherwise negative. . Nurses note and vital signs reviewed and patient is not hypoxic. General: The patient appears ill but not toxic; and in no apparent distress. Patient is resting comfortably on cart. Patient is not toxic, lethargic, or listless. Patient looks like she does not feel well, does not look toxic. Skin: Warm, dry, no pallor noted. There is no rash noted. No petechiae, purpura. Head: Normocephalic, atraumatic Eye: Normal conjunctiva, no drainage, EOMI. PERRL Ears, Nose, Mouth, and Throat: oral mucosa is moist. Nares patent. Mouth without vesicles. Cardiovascular: Regular Rate and Rhythm, no murmur, gallop, rub Respiratory: Patient is in no distress, no accessory muscle use, lungs are clear to auscultation, no wheezing, rales or rhonchi Back: non-tender, no CVA tenderness bilaterally to percussion. No CT LS midline pain GI: soft, no tenderness to palpation, no masses appreciated. No rebound, guarding, or rigidity noted. No flank pain bilateral, No distention Musculoskeletal: Patient has full range of motion of all of the extremities, no motor, sensory, or focal neurological deficits Neurological: A&O x3, normal speech Psychiatric: Cooperative Related Data Home Medications Medication Instructions Recorded Confirmed apixaban 5 mg tablet (Eliquis) 5 mg PO BID 10/23/22 12/11/22 atorvastatin 40 mg tablet 40 mg PO .QHS 10/23/22 12/11/22 carvedilol 12.5 mg tablet 6.25 mg PO BID 10/23/22 12/11/22 diltiazem HCl 120 mg 120 mg PO .QD 10/23/22 12/11/22 capsule,extended release 24 hr duloxetine 60 mg capsule,delayed 60 mg PO DAILY 10/23/22 11/19/22 release famotidine 20 mg tablet 20 mg PO .QHS PRN GERD 10/23/22 11/20/22 furosemide 40 mg tablet 40 mg PO DAILY 11/19/22 11/19/22 glipizide 5 mg tablet 15 mg PO DAILY 11/19/22 11/20/22 levothyroxine 100 mcg tablet 100 mcg PO DAILY 11/19/22 11/19/22 magnesium 200 mg tablet 200 mg PO DAILY 11/19/22 11/19/22 polyethylene glycol 3350 17 17 g PO DAILY PRN constipation 11/19/22 11/19/22 gram/dose oral powder (ClearLax) psyllium husk 0.52 gram capsule 0.52 g PO DAILY PRN constipation 11/19/22 11/19/22 (Fiber (psyllium husk)) trazodone 150 mg tablet 75 mg PO BEDTIME 11/19/22 11/20/22 Previous Rx's Medication Instructions Recorded ondansetron 4 mg disintegrating 4 mg PO Q6H PRN nausea and 12/11/22 tablet vomiting 4 days #4 tabs Allergies Allergy/AdvReac Type Severity Reaction Status Date / Time latex Allergy Unknown Verified 10/23/22 19:09 [facility] Medical History (Updated 12/11/22 @ 11:30 by Clarence Aldrich MD) Surgical History (Updated 11/19/22 @ 19:41 by Caitlin Delong) Family History (Updated 11/19/22 @ 22:06 by Maya Morrissey) Mother Family history of stroke Social History Smoking status: Never smoker Exam Constitutional Vital Signs, click to edit/add: Last Vital Signs Temp 97.9 F 12/11/22 07:52 Pulse 94 H 12/11/22 07:52 Resp 18 07/22/23 07:52 BP 151/104 H 12/11/22 07:52 Pulse Ox 99 12/11/22 07:52 O2 Del Method Room Air 12/11/22 07:52 Course Vital Signs Vital signs: Vital Signs Temperature 97.9 F 12/11/22 07:52 Pulse Rate 94 H 12/11/22 07:52 Respiratory Rate 18 12/11/22 07:52 Blood Pressure 151/104 H 12/11/22 07:52 Pulse Oximetry 99 12/11/22 07:52 Oxygen Delivery Method Room Air 12/11/22 07:52 Temperature 97.9 F 12/11/22 07:52 Pulse Rate 94 H 12/11/22 07:52 Respiratory Rate 18 12/11/22 07:52 Blood Pressure 151/104 H 12/11/22 07:52 Pulse Oximetry 99 12/11/22 07:52 Oxygen Delivery Method Room Air 12/11/22 07:52 Medical Decision Making MDM Narrative Medical decision making narrative: Patient feels much better after 1 L of IV fluid. Patient has a creatinine of 1.4, BUN is normal. Patient has no other acute findings in her urine or lab testing. Patient feels much better after 1 L of IV fluid and Zofran given. Patient has oral Zofran at home that she swallows, patient was given a prescription for ODT. Patient will follow-up with PCP next week. Patient will continue taking Requip tonight and tomorrow night and then follow up with Dr. Richards PCP for further recommendations on taking the medication. Patient states that she didn't sleep much better last night that she hasn't quite some time. Patient very thankful for care. Lab Data Lab results reviewed: Yes I reviewed the patient's lab results Labs: Lab Results 12/11/22 12/11/22 Range/Units 08:00 08:25 WBC 11.0 (4.0-11.0) 10^3/uL RBC 4.64 (4.20-5.40) 10^6/uL Hgb 13.6 (12.0-16.0) g/dL Hct 38.8 (36.0-48.0) % MCV 83.6 (81.0-99.0) fL MCH 29.3 (26.7-34.0) pg MCHC 35.1 (29.9-35.2) g/dL RDW 12.5 (11.0-15.0) % Plt Count 286 (150-450) 10^3/uL MPV 8.8 L (9.5-13.5) fL Neut % (Auto) 61.4 (43.0-75.0) % Lymph % (Auto) 29.0 (20.5-60.0) % [place] % (Auto) 6.6 (1.7-12.0) % Eos % (Auto) 2.0 (0.9-7.0) % Baso % (Auto) 0.8 (0.2-2.0) % Neut # (Auto) 6.8 H (1.4-6.5) 10^3/uL Lymph # (Auto) 3.2 (1.2-3.8) 10^3/uL [place] # (Auto) 0.7 (0.3-0.8) 10^3/uL Eos # (Auto) 0.2 (0.0-0.7) 10^3/uL Baso # (Auto) 0.1 (0.0-0.1) 10^3/uL Abs Immat Gran (auto) 0.02 (0.00-0.03) 10^3/uL Imm/Tot Granulo (auto) 0.2 (0.0-0.5) % Sodium 139 (136-145) mmol/L Potassium 3.6 (3.5-5.1) mmol/L Chloride 100 (98-107) mmol/L Carbon Dioxide 31.7 (21.0-32.0) mmol/L Anion Gap 10.9 BUN 18.0 (7.0-18.0) mg/dL Creatinine 1.41 H (0.55-1.02) mg/dL Est GFR ( Amer) 44 L (>=60) Est GFR (Non-Af Amer) 36 L (>=60) BUN/Creatinine Ratio 12.8 Glucose 169 H (74-106) mg/dL Lactate 1.3 (0.4-2.0) mmol/L Calcium 10.0 (8.5-10.1) mg/dL Magnesium 2.2 (1.8-2.4) mg/dL Total Bilirubin 0.5 (0.2-1.0) mg/dL AST 19 (15-37) U/L ALT 28 (14-59) U/L Alkaline Phosphatase 96 (46-116) U/L Troponin I High Sens 13.5 (4.0-51.3) pg/mL NT-Pro-B Natriuret Pep 595.0 (<=900.0) pg/mL Total Protein 8.6 H (6.4-8.2) g/dL Albumin 4.4 (3.4-5.0) g/dL Globulin 4.2 g/dL Albumin/Globulin Ratio 1.0 Lipase 112.0 (73.0-393.0) U/L Urine Color Lt. yellow (YELLOW) Urine Clarity Clear (CLEAR) Urine pH 7.0 (5.0-9.0) Ur Specific [place] 1.010 (1.005-1.025) Urine Protein Negative (NEG/TRACE) mg/dL Urine Glucose (UA) Negative (NEGATIVE) mg/dL Urine Ketones Negative (NEGATIVE) mg/dL Urine Occult Blood Negative (NEGATIVE) Urine Nitrite Negative (NEGATIVE) Urine Bilirubin Negative (NEGATIVE) Urine Urobilinogen 0.2 (0.2-1.0) EU/dL Ur Leukocyte Esterase Small A (NEGATIVE) Urine RBC None seen (0-2) #/HPF Urine WBC 2-5 A (NONE SEEN) #/HPF Ur Squamous Epith Cells Rare (NONE/RARE) #/LPF Urine Crystals None seen (None Seen) #/HPF Urine Bacteria None seen (NONE SEEN) #/HPF Urine Casts None seen (NONE SEEN) #/LPF Urine Mucus None seen (NONE SEEN) Ur Culture Indicated? No Discharge Plan Discharge Chief Complaint: Nausea/Vomiting/Diarrhea Clinical Impression: Nausea, Weakness Patient Disposition: Home, Self-Care Condition: Good Prescriptions / Home Meds: New ondansetron 4 mg tablet,disintegrating 4 mg PO Q6H PRN (Reason: nausea and vomiting) 4 Days Qty: 4 0RF No Action Eliquis 5 mg tablet 5 mg PO BID atorvastatin 40 mg tablet 40 mg PO .QHS carvedilol 12.5 mg tablet 6.25 mg PO BID diltiazem HCl 120 mg capsule,extended release 24hr 120 mg PO .QD duloxetine 60 mg capsule,delayed release(DR/EC) 60 mg PO DAILY famotidine 20 mg tablet 20 mg PO .QHS PRN (Reason: GERD) furosemide 40 mg tablet 40 mg PO DAILY levothyroxine 100 mcg tablet 100 mcg PO DAILY glipizide 5 mg tablet 15 mg PO DAILY trazodone 150 mg tablet 75 mg PO BEDTIME magnesium 200 mg tablet 200 mg PO DAILY polyethylene glycol 3350 [ClearLax] 17 gram/dose powder 17 g PO DAILY PRN (Reason: constipation) psyllium husk [Fiber (psyllium husk)] 0.52 gram capsule 0.52 g PO DAILY PRN (Reason: constipation) Instructions: Acute Nausea and Vomiting (DC), Weakness (ED) Additional Instructions: Continue taking medication as prescribed from your PCP Dr. Richards. Patient will follow-up with Dr. Richards up further recommendations on taking the Requip. Stand Alone Forms: Portal Instructions Referrals: GÓMEZ HERNANDEZ [Primary Care Provider] - 1 week
[2022-12-11 08:44] LABS: Lactate/Lactic Acid 1.3 mmol/L (0.4-2.0)
[2022-12-11 08:52] LABS: Alanine Aminotransferase 28 U/L (14-59); Albumin Level 4.4 g/dL (3.4-5.0); Alkaline Phosphatase 96 U/L (46-116); Anion Gap 10.9; Aspartate Amino Transferase 19 U/L (15-37); BUN Creatinine Ratio 12.8; Bilirubin Total 0.5 mg/dL (0.2-1.0); Carbon Dioxide 31.7 mmol/L (21.0-32.0); Chloride 100 mmol/L (98-107); Estimated GFR (African America 44 (>=60); Estimated GFR (Non-African Ame 36 (>=60); Globulin 4.2 g/dL; Glucose 169 mg/dL (74-106); Magnesium 2.2 mg/dL (1.8-2.4); Potassium 3.6 mmol/L (3.5-5.1); Sodium 139 mmol/L (136-145); Total Protein 8.6 g/dL (6.4-8.2); Troponin I High Sensitivity 13.5 pg/mL (4.0-51.3)
[2022-12-11 09:44] LABS: Bilirubin Urine NEGATIVE (NEGATIVE); Blood Urine NEGATIVE (NEGATIVE); Clarity Urine CLEAR (CLEAR); Color Urine LT. YELLOW (YELLOW); Glucose Urine UA NEGATIVE (NEGATIVE); Ketones Urine NEGATIVE (NEGATIVE); Leukocyte Esterase Urine SMALL (NEGATIVE); Nitrite Urine NEGATIVE (NEGATIVE); Protein Urine NEGATIVE (NEG/TRACE); Urine Microscopic Indicated YES; Urobilinogen Urine 0.2 EU/dL (0.2-1.0)
[2022-12-11 09:52] LABS: Bacteria Urine NONE SEEN #/HPF (NONE SEEN); Cast Seen? NONE SEEN #/LPF (NONE SEEN); Crystals Seen? None Seen #/HPF (None Seen); Mucus Urine NONE SEEN (NONE SEEN); RBC Urine NONE SEEN #/HPF (0-2); Squamous Epithelial Cell Urine RARE #/LPF (NONE/RARE); Urine Culture Indicated NO
== END 2022-12-11 11:47 | disposition home or self-care (01) ==
PROVIDERS: Emergency Provider Emergency Medicine; PCP Family Medicine
DX: R11.0 Nausea (principal); R53.1 Weakness; Z79.899 Other long term (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; Z79.01 Long term (current) use of anticoagulants; Z79.890 Hormone replacement therapy
CPT/HCPCS: 36415; 71046; 80053; 81003; 81015; 83605; 83690; 83735; 83880; 84484; 85025; 93005; 96361; 96374; 99285

== ENCOUNTER 2023-05-05 10:05 | Outpatient (OUT) | payer OTHER, SELFPAY ==
[2023-05-05 10:57] LABS: Basophils Absolute Auto 0.1 10^3/uL (0.0-0.1); Basophils Percent Auto 1.1 % (0.2-2.0); Eosinophils Absolute Auto 0.2 10^3/uL (0.0-0.7); Eosinophils Percent Auto 3.2 % (0.9-7.0); Hemoglobin 10.7 g/dL (12.0-16.0); Immature Granulocytes Abs Auto 0.02 10^3/uL (0.00-0.03); Immature Granulocytes Pct Auto 0.3 % (0.0-0.5); Lymphocytes Absolute Auto 2.9 10^3/uL (1.2-3.8); Lymphocytes Percent Auto 44.3 % (20.5-60.0); Mean Corpuscular HGB Conc 32.4 g/dL (29.9-35.2); Mean Corpuscular Hemoglobin 29.7 pg (26.7-34.0); Mean Corpuscular Volume 91.7 fL (81.0-99.0); Mean Platelet Volume 9.3 fL (9.5-13.5); Monocytes Absolute Auto 0.5 10^3/uL (0.3-0.8); Neutrophils Absolute Auto 2.9 10^3/uL (1.4-6.5); Neutrophils Percent Auto 43.1 % (43.0-75.0); Platelet Count 213 10^3/uL (150-450); Red Cell Distribution Width 13.4 % (11.0-15.0); White Blood Count 6.6 10^3/uL (4.0-11.0)
[2023-05-05 11:18] LABS: Alanine Aminotransferase 31 U/L (14-59); Albumin Globulin Ratio 1.1; Albumin Level 3.5 g/dL (3.4-5.0); Alkaline Phosphatase 62 U/L (46-116); Anion Gap 10.2; Aspartate Amino Transferase 20 U/L (15-37); BUN Creatinine Ratio 17.1; Bilirubin Total 0.4 mg/dL (0.2-1.0); Calcium 9.3 mg/dL (8.5-10.1); Carbon Dioxide 29.8 mmol/L (21.0-32.0); Chloride 104 mmol/L (98-107); Chol HDL Ratio 2.1; Cholesterol 124 mg/dL (<=200); Estimated GFR (African America 42 (>=60); Estimated GFR (Non-African Ame 35 (>=60); Globulin 3.3 g/dL; Glucose 117 mg/dL (74-106); HDL Cholesterol 59 mg/dL (40-60); Magnesium 2.1 mg/dL (1.8-2.4); Sodium 140 mmol/L (136-145); TSH W/ REFLEX FT4 0.185 (0.358-3.740); Total Protein 6.8 g/dL (6.4-8.2); Triglycerides 170 mg/dL (<=150)
== END 2023-05-05 10:06 | disposition home or self-care (01) ==
LOC: LAB 10:05
PROVIDERS: PCP Family Medicine
DX: R00.2 Palpitations (principal); I25.10 Atherosclerotic heart disease of native coronary artery without angina pectoris; E78.5 Hyperlipidemia, unspecified; E55.9 Vitamin D deficiency, unspecified; I63.9 Cerebral infarction, unspecified
CPT/HCPCS: 36415; 80053; 80061; 82306; 83735; 84439; 84443; 85025

== ENCOUNTER 2023-08-13 10:31 | Outpatient (OUT) | payer OTHER, SELFPAY ==
[2023-08-13 10:59] LABS: Basophils Absolute Auto 0.1 10^3/uL (0.0-0.1); Basophils Percent Auto 1.2 % (0.2-2.0); Eosinophils Absolute Auto 0.3 10^3/uL (0.0-0.7); Eosinophils Percent Auto 4.4 % (0.9-7.0); Hemoglobin 10.2 g/dL (12.0-16.0); Immature Granulocytes Abs Auto 0.02 10^3/uL (0.00-0.03); Immature Granulocytes Pct Auto 0.3 % (0.0-0.5); Lymphocytes Absolute Auto 2.8 10^3/uL (1.2-3.8); Lymphocytes Percent Auto 40.5 % (20.5-60.0); Mean Corpuscular HGB Conc 31.9 g/dL (29.9-35.2); Mean Corpuscular Hemoglobin 30.4 pg (26.7-34.0); Mean Corpuscular Volume 95.5 fL (81.0-99.0); Monocytes Absolute Auto 0.5 10^3/uL (0.3-0.8); Monocytes Percent Auto 6.9 % (1.7-12.0); Neutrophils Absolute Auto 3.2 10^3/uL (1.4-6.5); Neutrophils Percent Auto 46.7 % (43.0-75.0); Platelet Count 204 10^3/uL (150-450); Red Blood Count 3.35 10^6/uL (4.20-5.40); Red Cell Distribution Width 11.8 % (11.0-15.0); White Blood Count 6.8 10^3/uL (4.0-11.0)
[2023-08-13 12:01] LABS: Alanine Aminotransferase 26 U/L (14-59); Albumin Globulin Ratio 1.1; Albumin Level 3.6 g/dL (3.4-5.0); Alkaline Phosphatase 47 U/L (46-116); Anion Gap 12.2; Aspartate Amino Transferase 19 U/L (15-37); BUN Creatinine Ratio 13.6; Bilirubin Total 0.3 mg/dL (0.2-1.0); Calcium 9.2 mg/dL (8.5-10.1); Carbon Dioxide 31.1 mmol/L (21.0-32.0); Chloride 104 mmol/L (98-107); Chol HDL Ratio 1.7; Cholesterol 132 mg/dL (<=200); Estimated GFR (African America 40 (>=60); Estimated GFR (Non-African Ame 33 (>=60); Globulin 3.4 g/dL; Glucose 101 mg/dL (74-106); HDL Cholesterol 76 mg/dL (40-60); Magnesium 2.2 mg/dL (1.8-2.4); Potassium 4.3 mmol/L (3.5-5.1); Sodium 143 mmol/L (136-145); TSH W/ REFLEX FT4 0.482 uIU/mL (0.358-3.740); Triglycerides 51 mg/dL (<=150); VLDL CHOLESTEROL 10.2 mg/dL
== END 2023-08-13 10:32 | disposition home or self-care (01) ==
LOC: CARD 10:31
PROVIDERS: PCP Family Medicine
DX: R00.2 Palpitations (principal); E78.5 Hyperlipidemia, unspecified; E55.9 Vitamin D deficiency, unspecified; I48.20 Chronic atrial fibrillation, unspecified
CPT/HCPCS: 36415; 80053; 80061; 82306; 83735; 84443; 85025

== ENCOUNTER 2023-11-02 10:25 | Outpatient (OUT) | payer OTHER, SELFPAY ==
--- NOTE | 2023-11-02 | ECG_ITS ---
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
[2023-11-02 11:32] LABS: Basophils Absolute Auto 0.1 10^3/uL (0.0-0.1); Basophils Percent Auto 1.3 % (0.2-2.0); Eosinophils Absolute Auto 0.2 10^3/uL (0.0-0.7); Eosinophils Percent Auto 3.1 % (0.9-7.0); Hematocrit 30.3 % (36.0-48.0); Hemoglobin 9.7 g/dL (12.0-16.0); Immature Granulocytes Abs Auto 0.02 10^3/uL (0.00-0.03); Immature Granulocytes Pct Auto 0.3 % (0.0-0.5); Lymphocytes Absolute Auto 2.8 10^3/uL (1.2-3.8); Lymphocytes Percent Auto 41.6 % (20.5-60.0); Mean Corpuscular Hemoglobin 29.8 pg (26.7-34.0); Mean Corpuscular Volume 93.2 fL (81.0-99.0); Mean Platelet Volume 8.7 fL (9.5-13.5); Monocytes Absolute Auto 0.5 10^3/uL (0.3-0.8); Monocytes Percent Auto 7.2 % (1.7-12.0); Neutrophils Absolute Auto 3.2 10^3/uL (1.4-6.5); Neutrophils Percent Auto 46.5 % (43.0-75.0); Platelet Count 312 10^3/uL (150-450); Red Blood Count 3.25 10^6/uL (4.20-5.40); Red Cell Distribution Width 11.9 % (11.0-15.0); White Blood Count 6.8 10^3/uL (4.0-11.0)
[2023-11-02 11:47] LABS: Alanine Aminotransferase 16 U/L (14-59); Albumin Level 3.7 g/dL (3.4-5.0); Alkaline Phosphatase 37 U/L (46-116); Anion Gap 8.9; Aspartate Amino Transferase 15 U/L (15-37); BUN Creatinine Ratio 15.1; Bilirubin Total 0.3 mg/dL (0.2-1.0); Calcium 9.6 mg/dL (8.5-10.1); Carbon Dioxide 31.2 mmol/L (21.0-32.0); Chloride 105 mmol/L (98-107); Chol HDL Ratio 1.7; Cholesterol 138 mg/dL (<=200); Estimated GFR (African America 37 (>=60); Estimated GFR (Non-African Ame 30 (>=60); Globulin 3.8 g/dL; Glucose 95 mg/dL (74-106); HDL Cholesterol 83 mg/dL (40-60); Magnesium 2.6 mg/dL (1.8-2.4); Potassium 4.1 mmol/L (3.5-5.1); Sodium 141 mmol/L (136-145); Total Protein 7.5 g/dL (6.4-8.2); Triglycerides 64 mg/dL (<=150); VLDL CHOLESTEROL 12.8 mg/dL
== END 2023-11-02 10:26 | disposition home or self-care (01) ==
LOC: LAB 10:27
PROVIDERS: PCP Family Medicine
DX: R06.02 Shortness of breath (principal); I05.0 Rheumatic mitral stenosis; E78.5 Hyperlipidemia, unspecified; E55.9 Vitamin D deficiency, unspecified
CPT/HCPCS: 36415; 80053; 80061; 82306; 83735; 84443; 85025; 93005

== ENCOUNTER 2023-12-19 14:14 | Outpatient (OUT) | payer OTHER, SELFPAY ==
[2023-12-19 14:59] LABS: Anion Gap 11.8; BUN Creatinine Ratio 16.8; Calcium 9.5 mg/dL (8.5-10.1); Carbon Dioxide 32.5 mmol/L (21.0-32.0); Chloride 102 mmol/L (98-107); Estimated GFR (African America 31 (>=60); Estimated GFR (Non-African Ame 26 (>=60); Glucose 83 mg/dL (74-106); Potassium 4.3 mmol/L (3.5-5.1); Sodium 142 mmol/L (136-145)
[2023-12-19 17:16] LABS: Basophils Absolute Auto 0.1 10^3/uL (0.0-0.1); Basophils Percent Auto 1.5 % (0.2-2.0); Eosinophils Absolute Auto 0.2 10^3/uL (0.0-0.7); Eosinophils Percent Auto 3.2 % (0.9-7.0); Hematocrit 31.4 % (36.0-48.0); Hemoglobin 10.5 g/dL (12.0-16.0); Immature Granulocytes Abs Auto 0.02 10^3/uL (0.00-0.03); Immature Granulocytes Pct Auto 0.3 % (0.0-0.5); Lymphocytes Percent Auto 39.6 % (20.5-60.0); Mean Corpuscular HGB Conc 33.4 g/dL (29.9-35.2); Mean Corpuscular Hemoglobin 31.5 pg (26.7-34.0); Mean Corpuscular Volume 94.3 fL (81.0-99.0); Mean Platelet Volume 9.5 fL (9.5-13.5); Monocytes Absolute Auto 0.7 10^3/uL (0.3-0.8); Monocytes Percent Auto 8.6 % (1.7-12.0); Neutrophils Absolute Auto 3.5 10^3/uL (1.4-6.5); Neutrophils Percent Auto 46.8 % (43.0-75.0); Platelet Count 251 10^3/uL (150-450); Red Blood Count 3.33 10^6/uL (4.20-5.40); Red Cell Distribution Width 11.8 % (11.0-15.0); White Blood Count 7.5 10^3/uL (4.0-11.0)
== END 2023-12-19 14:15 | disposition home or self-care (01) ==
PROVIDERS: PCP Family Medicine; Visit Provider Family Medicine
DX: I27.81 Cor pulmonale (chronic) (principal); I50.32 Chronic diastolic (congestive) heart failure; N18.32 Chronic kidney disease, stage 3b; E87.6 Hypokalemia
CPT/HCPCS: 36415; 80048; 83880; 85025

== ENCOUNTER 2024-05-02 10:12 | Outpatient (OUT) | payer OTHER, SELFPAY ==
--- NOTE | 2024-05-02 10:42 | ECG_ITS ---
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
[2024-05-02 10:52] LABS: Basophils Absolute Auto 0.1 10^3/uL (0.0-0.1); Basophils Percent Auto 1.3 % (0.2-2.0); Eosinophils Absolute Auto 0.3 10^3/uL (0.0-0.7); Eosinophils Percent Auto 4.6 % (0.9-7.0); Hematocrit 33.6 % (36.0-48.0); Hemoglobin 11.2 g/dL (12.0-16.0); Immature Granulocytes Abs Auto 0.01 10^3/uL (0.00-0.03); Immature Granulocytes Pct Auto 0.1 % (0.0-0.5); Lymphocytes Absolute Auto 2.2 10^3/uL (1.2-3.8); Lymphocytes Percent Auto 31.2 % (20.5-60.0); Mean Corpuscular HGB Conc 33.3 g/dL (29.9-35.2); Mean Corpuscular Hemoglobin 30.4 pg (26.7-34.0); Mean Corpuscular Volume 91.3 fL (81.0-99.0); Mean Platelet Volume 8.7 fL (9.5-13.5); Monocytes Absolute Auto 0.5 10^3/uL (0.3-0.8); Monocytes Percent Auto 7.6 % (1.7-12.0); Neutrophils Percent Auto 55.2 % (43.0-75.0); Platelet Count 240 10^3/uL (150-450); Red Blood Count 3.68 10^6/uL (4.20-5.40); Red Cell Distribution Width 11.9 % (11.0-15.0); White Blood Count 7.2 10^3/uL (4.0-11.0)
[2024-05-02 12:02] LABS: Alanine Aminotransferase 42 U/L (14-59); Albumin Level 3.6 g/dL (3.4-5.0); Alkaline Phosphatase 87 U/L (46-116); Anion Gap 10.9; Aspartate Amino Transferase 23 U/L (15-37); BUN Creatinine Ratio 17.9; Bilirubin Total 0.4 mg/dL (0.2-1.0); Calcium 9.4 mg/dL (8.5-10.1); Carbon Dioxide 32.2 mmol/L (21.0-32.0); Chloride 104 mmol/L (98-107); Chol HDL Ratio 1.9; Cholesterol 167 mg/dL (<=200); Estimated GFR (African America 38 (>=60 mL/min/1.73m^2); Estimated GFR (Non-African Ame 31 (>=60 mL/min/1.73m^2); Globulin 3.7 g/dL; Glucose 128 mg/dL (74-106); HDL Cholesterol 87 mg/dL (40-60); Magnesium 2.5 mg/dL (1.8-2.4); Potassium 4.1 mmol/L (3.5-5.1); Sodium 143 mmol/L (136-145); TSH W/ REFLEX FT4 1.048 uIU/mL (0.358-3.740); Total Protein 7.3 g/dL (6.4-8.2); Triglycerides 108 mg/dL (<=150); VLDL CHOLESTEROL 21.6 mg/dL
== END 2024-05-02 10:13 | disposition home or self-care (01) ==
PROVIDERS: PCP Family Medicine
DX: I05.0 Rheumatic mitral stenosis (principal); E78.5 Hyperlipidemia, unspecified; E55.9 Vitamin D deficiency, unspecified; I48.20 Chronic atrial fibrillation, unspecified
CPT/HCPCS: 36415; 80053; 80061; 82306; 83735; 84443; 85025; 93005

== ENCOUNTER 2024-06-15 11:09 | Outpatient (OUT) | payer MEDICARE, SELFPAY ==
[2024-06-15 12:10] LABS: Anion Gap 8.4; BUN Creatinine Ratio 13.1; Calcium 9.1 mg/dL (8.5-10.1); Carbon Dioxide 33.6 mmol/L (21.0-32.0); Chloride 104 mmol/L (98-107); Estimated GFR (African America 34 (>=60 mL/min/1.73m^2); Estimated GFR (Non-African Ame 28 (>=60 mL/min/1.73m^2); Glucose 116 mg/dL (74-106); Sodium 142 mmol/L (136-145)
== END 2024-06-15 11:10 | disposition home or self-care (01) ==
LOC: LAB 11:14
PROVIDERS: PCP Family Medicine; Visit Provider Family Medicine
DX: I70.1 Atherosclerosis of renal artery (principal); E11.3293 Type 2 diabetes mellitus with mild nonproliferative diabetic retinopathy without macular edema, bilateral; I50.32 Chronic diastolic (congestive) heart failure; E11.21 Type 2 diabetes mellitus with diabetic nephropathy; Z79.899 Other long term (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
CPT/HCPCS: 36415; 80048

== ENCOUNTER 2024-08-28 23:57 | Emergency (ER) | payer MEDICARE, SELFPAY ==
[2024-08-29 00:04] VITALS: BP 101/62; PULSE 58; TEMP 36.5; O2SAT 98
--- OUTSIDE RECORDS SUMMARY | 2024-08-29 00:13 | XMS_ITS | CCD ---
Author Organization [facility] Care Team Providers Care Hand Button Splitter Name Role Phone Grayson Hernandez Primary Care Provider TASIA IRIZARRY Admitting Unavailab le VIGESAA, TASIA HERNANDEZ Attending Unavailab le VIGESAA, TASIA HERNANDEZ Admitting Unavailab le VIGESAA, TASIA HERNANDEZ Attending Unavailab le GRAYSON HERNANDEZ Primary Care Unavailable VIGDEXTER, TASIA HERNANDEZ Admitting Unavailab le MARIONESMIKE, TASIA HERNANDEZ Attending Unavailab le GRAYSON HERNANDEZ Primary Care Unavailable Grayson Hernandez Primary Care Provider [phone] Grayson Hernandez Primary Care Provider [phone] CARO TERESA Referring Unavailable GRAYSON HERNANDEZ Primary Care Unavailable CARO TERESA Referring Unavailable GRAYSON HERNANDEZ Primary Care Unavailable VASILIY GARCIA Referring Unavailable GRAYSON HERNANDEZ Primary Care Unavailable VASILIY GARCIA Referring Unavailable GRAYSON HERNANDEZ Primary Care Unavailable CARO TERESA Admitting Unavailable CARO TERESA Attending Unavailable GRAYSON HERNANDEZ Primary Care Unavailable COLE ARTEAGA Consulting Unavailable EVETTE TARIF A Consulting Unavailable JODIE QUIROZ Consulting Unavailable EVELIO BANSAL Consulting Unavailable XAVIER HENRIQUEZ Consulting Unavaila JAIMEE Souza Consulting Unavailable ISH RICHTER Consulting Unavailable ANGIE GARCIA Consulting Unavailable TITUS HYDE Consulting Unavailable LANDEN LUA Consulting Unavailable XOCHILT PERRY Consulting Unavailable ELOISE ARZOLA Consulting Unavailable Grayson Hernandez Primary Care Provider [phone] Grayson Hernandez Primary Care Provider PROVIDER, UNKNOWN Attending Unavailable PROVIDER, UNKNOWN Admitting Unavailable Grayson Hernandez MD Primary Care Provider Grayson Hernandez MD Primary Care Provider Martha Rendon Unavailable JONE, DR ABHI Saldana Consulting Unavailable EJ, DR GENO Sanabria Attending Unavailable EJ, DR GENO Sanabria Admitting Unavailable HEMEYER ., DR MAGAÑA Primary Care Unavailable EJ, DR GENO Sanabria Consulting Unavailable JUMMA, CAROL Consulting Unavailable AGUILA, PETAR Consulting Unavailable FALSILVIO, GISELLE Consulting Unavailable YARELIS, ANIYA Consulting Unavailable ABHI CARO Consulting Unavailable SISTER, SANDRO Consulting Unavailable SAMSA ., ALIYAH Attending Unavailable SAMSA ., ALIYAH Admitting Unavailable SHINE ., DR CINTHIA Coy Consulting Unavailable HEMEYER ., DR MAGAÑA Primary Care Unavailable JONE, DR ABHI Saldana Consulting Unavailable PAY ., DR ANDRADE Consulting Unavailable GRECHNY ., BRANT BEDOLLA Consulting Unavailangelica e SAMSA ., ALIYAH Consulting Unavailable MARTHA SAHNI Consulting Unavailable MANJEET GREENFIELD Consulting Unavailable EDI MAURICE Consulting Unavailable HEMEYER ., DR MAGAÑA Primary Care Unavailable HEMEYER ., DR MAGAÑA Attending Unavailable HEMEYER ., DR MAGAÑA Admitting Unavailable HEMEYER ., DR MAGAÑA Consulting Unavailable HEMEYER ., DR MAGAÑA Primary Care Unavailable HEMEYER ., DR MAGAÑA Attending Unavailable HEMEYER ., DR MAGAÑA Admitting Unavailable HEMEYER ., DR MAGAÑA Consulting Unavailable HEMEYER ., DR MAGAÑA Primary Care Unavailable ANSHUL IRIZARRY Attending Unavailable ANSHUL IRIZARRY Admitting Unavailable HEMEYER ., DR MAGAÑA Consulting Unavailable HEMEYER ., DR MAGAÑA Primary Care Unavailable HEMEYER ., DR MAGAÑA Attending Unavailable HEMEYER ., DR MAGAÑA Admitting Unavailable MANISHA ARRIAGA Consulting Unavailable MANISHA ARRIAGA Attending Unavailable MANISHA ARRIAGA Admitting Unavailable HEMEYER ., DR MAGAÑA Primary Care Unavailable ABHI CANTU Consulting Unavailable [place] Unavailable Grayson Hernandez MD Unavailable [phone] Grayson Hernandez MD Primary Care Provider Grayson Hernandez MD Unavailable Eliana MORALES, Harmony Unavailable Tasia Irizarry MD Unavailable [phone] Ewa ARAGON-Kirstie Thibodeaux Unavailable [phone] Grayson Hernandez MD Primary Care Provider [phone] VIGESAA, ANSHUL S Attending Unavailable VIGESAA, ANSHUL S Referring Unavailable GRAYSON HERNANDEZ Primary Care Unavailable MATTY MARTINEZ Admitting Unavailable MATTY MARTINEZ Attending Unavailable GRAYSON HERNANDEZ Primary Care Unavailable VIGESAA, ANSHUL S Referring Unavailable VIGESAA, ANSHUL S Attending Unavailable HEMEGRAYSON AMARAL Primary Care Unavailable VIGESAA, ANSHUL S Attending Unavailable HEMECRISTIN, GRAYSON Deluca Primary Care Unavailable VIGESAA, ANSHUL S Referring Unavailable VIGESAA, ANSHUL S Attending Unavailable GRAYSON HERNANDEZ Primary Care Unavailable VIGESAA, ANSHUL S Referring Unavailable HEMECRISTIN, GRAYSON Deluca Primary Care Unavailable VIGESAA, ANSHUL S Referring Unavailable VIGESAA, ANSHUL S Referring Unavailable VIGESAA, ANSHUL S Attending Unavailable GRAYSON HERNANDEZ Primary Care Unavailable Marcus GUAN, Shannen Unavailable Grayson Hernandez MD Primary Care Provider Morgan Womack MD Attending Provider Grayson Hernandez MD Primary Care Provider Morgan Womack MD Attending Provider Shanta, Morgan Admitting Unavailable Shanta, Morgan Attending Unavailable Grayson Hernandez Primary Care Unavailable Shanta, Morgan Admitting Unavailable Shanta, Morgan Attending Unavailable Grayson Hernandez Primary Care Unavailable Grayson Hernandez MD Unavailable [phone] Grayson Hernandez MD Primary Care Provider Grayson Hernandez MD Primary Care Provider [phone] Dm Agarwal Jr Attending Unavailable Dm Agarwal Jr Referring Unavailable Dm Agarwal Jr, MD Unavailable Unavailable GRAYSON HERNANDEZ Attending Unavailable GRAYSON HERNANDEZ Attending Unavailable JORGE LUIS GASCA Attending Unavailable GRAYSON HERNANDEZ Attending Unavailable GRAYSON HERNANDEZ Attending Unavailable GRAYSON HERNANDEZ Attending Unavailable GRAYSON HERNANDEZ Attending Unavailable GRAYSON HERNANDEZ Attending Unavailable Allergies Allergy Classification Reported Allergen(s) Allergy Type Date of Onset Reaction(s) Facility (20 sources) Latex; Translations: [LATEX] Propensity to adverse reactions to drug 1 Anaphylaxis [employer] Work Phone: (1 source) Latex Drug allergy (disorder) 6 [facility] (20 sources) Latex Propensity to adverse reactions 9 Anaphylaxis [facility] (1 source) Latex Drug allergy (disorder) 4 [facility] Medications Current Medications Medication Drug Class(es) Dates Sig (Normalized) Sig (Original) acetaminophen 500 mg oral tablet (10 sources) Start: 11-19-2020 take 1 tablet by mouth every six hours as needed for pain Acetaminophen (Acetaminophen Extra Strength) 500 mg Tablet Active 500 MG PO Q6H as needed for Pain November 18, 2020 11:00pm Start: 07-03-2019 take 650 mg rectal r oute every four hours as needed for pain, then take 4000 mg rectal route every twenty-four hours as needed for pain 650 mg, Rectal, EVERY 4 HOURS PRN, Pain Mild (1-3), Fever, For temp > 100.5 F (38 C), Starting Tue07/03/19 at 1726 For mild pain level 1-3 or for fever > 100.5 (38 C), Maximum dose of acetaminophen is 4000 mg from all sources in 24 hours Start: 07-03-2019 take 650 mg by mouth every four hours as needed for pain, then take 4000 mg by mouth every twenty-four hours as needed for pain 650 mg, Oral, EVERY 4 HOURS PRN, Pain Mild (1-3), Fever, Fever >100.5 F (38 C), Starting Tue07/03/19 at 1726 Maximum dose of acetaminophen is 4000 mg from all sources in 24 hours. acetaminophen 325 mg / oxyCO DONE hydrochloride 5 mg oral tablet (5 sources) Opioid Agonist Start: 07-24-2019 End: 07-27-2019 take 1 tablet by lorenzo th twice daily as needed oxyCODONE-Acetaminophen 5-325 MG 1 table t as needed Orally up to twice daily as needed for 30 days Active take 1 tablet by lorenzo th every four hours as needed for pain oxyCODONE-acetaminophen (PERCOCET) 5-325 MG per tablet Take 1 tablet by mouth every 4 hours as needed for Pain. 0 Active 500 ml albumin human, care home 50 mg/ml injection (1 source) Human Serum Albumin Start: 07-03-2019 25 g, Intravenous, PRN, Other, PAD below goal and Low CI and/or Low BP and /or Low urine output per hemodynamic goals , Starting Tue07/03/19 at 1726 Up to a max of 1000 mL. Notify surgeon for further orders if max volume infused. [id number] 200 actuat albuterol 0.09 mg/actuat metered dose inhaler (1 source) beta2-Adrenergic Agonist Start: 07-17-2022 take 2 puff(s) by inhalation every four hours as needed Albuterol Sulfate HFA 108 (90 Base) MCG/ACT 2 puffs as needed Inhalation every 4 hrs Jun, Active 24 hr ALPRAZolam 1 mg extended release oral tablet (20 sources) Benzodiazepine Start: 03-08-2024 take 1 tablet by mouth once daily Alprazolam 1 mg tablet extended release 24 hr Active 1 MG PO Daily March 07, 2024 11:00pm Start: 11-16-2023 End: 01-26-2025 take 1 tablet by mouth every twenty-four hours in the morning ALPRAZolam XR (Xanax XR) 1 MG 24 hr tablet Indications: Anxiety associated with depression Take 1 tablet (1 mg) by mouth in the morning. Do not crush, chew, or split.. 30 tablet 5 07/30/2024 01/26/2025 Active Start: 06-10-2023 End: 09-08-2023 take 1 tablet by mouth every twenty-four hours in the morning ALPRAZolam XR (Xanax XR) 1 MG 24 hr tablet Indications: Anxiety associated with depression Take 1 tablet (1 mg) by mouth in the morning. Do not crush, chew, or split.. 30 tablet 2 06/10/2023 09/08/2023 Active Start: 01-10-2023 take 1 tablet by lorenzo th three times daily ALPRAZolam (XANAX) 0.25 MG tablet 1 tablet 3 TIMES DAILY (route: oral) 0 01/10/2023 Active take 1 tablet by lorenzo th three times daily alprazolam 1 mg tablet take 1 tablet by oral route 3 times every day 1 MG - Active amiodarone hydrochloride 200 mg oral tablet (6 sources) Antiarrhythmic Start: 07-25-2019 Start: 07-11-2019 End: 07-21-2019 take 200 mg by mouth twice daily 200 mg, Oral, 2 TIMES DAILY, First dose (after last modification) on 07/11/19 at 2100 Start: 07-07-2019 End: 07-11-2019 take 400 mg by mouth twice daily 400 mg, Oral, 2 TIMES DAILY, First dose on 07/07/19 at 0900 Start: 07-03-2019 take 200 mg by mouth once daily 200 mg, Oral, DAILY, First dose (after last modification) on 07/22/19 at 0900 Start: 07-03-2019 End: 07-07-2019 take 200 mg by mouth three times daily 200 mg, Oral, 3 TIMES DAILY, First dose on 07/03/19 at 0900 apixaban 5 mg oral tablet (20 sources) Factor Xa Inhibitor Start: 10-11-2022 take 1 tablet by mouth in the morning apixaban (Eliquis) 5 MG tablet Take 1 tablet by mouth in the morning and 1 tablet before bedtime. 10/11/2022 Active take 1 tablet by mouth once michel y Eliquis 5 mg tablet take 1 tablet by oral route every day 5 MG - Active ARIPiprazole 2 mg oral tablet (20 sources) Atypical Antipsychotic Start: 08-01-2024 End: 08-31-2024 take 0.5 tablet by mouth in the evening ARIPiprazole (Abilify) 2 MG tablet Indications: Persistent disorder of initiating or maintaining sleep , Vascular dementia with behavior disturbance (CMS/HCC) Take 0.5 tablets (1 mg) by mouth in the evening 15 tablet 08/01/2024 08/31/2024 Active Start: 11-30-2023 End: 08-19-2024 take 1 tablet by mouth once daily ARIPiprazole (Abilify) 2 MG tablet Indications: Agitation Take 1 tablet (2 mg) by mouth Daily 90 tablet 1 02/21/2024 08/19/2024 Active aspirin 81 mg delayed release oral tablet (20 sources) Platelet Aggregation Inhibitor, Nonsteroidal Anti-inflammatory Drug Start: 11-24-2022 take 1 tablet by mouth in the morning aspirin 81 MG EC tablet Take 81 mg by mouth in the morning. 11/24/2022 Active Start: 11-19-2020 take 1 tablet by mouth once da wilma Aspirin 81 mg Tablet Active 81 MG PO Daily November 18, 2020 11:00pm Start: 07-03-2019 End: 07-15-2019 take 81 mg by mouth once daily 81 mg, Oral, DAILY, Fir st dose on Tue07/03/19 at 1745 Do not crush or break. End: 07-06-2024 take 1 tablet by mouth once daily aspirin 325 mg Tab t nora 1 tablet (325MG) by oral route every day 325 MG - No Longer Active take 1 tablet by mouth once michel y [place] 81 mg capsule take 1 tablet by oral route every day for 1 day 1 tablet - Active take 1 tablet by lorenzo th every twenty-four hours Aspirin 81 MG 1 tablet Orally Once a day Active aspirin 81 MG ta blet Take 325 mg by mouth three times a week - 0 Active take 1 tablet by mouth once michel y aspirin 325 MG EC tablet Take 325 mg by mouth daily . 0 Active aspirin 81 MG ta blet Take 325 mg by mouth daily 0 Active take 1 tablet by mouth once michel y aspirin 81 MG tablet Take 81 mg by mouth daily 0 Active atorvastatin 40 mg oral tablet (20 sources) HMG-CoA Reductase Inhibitor Start: 08-14-2024 End: 02-16-2025 take 1 tablet by mouth once daily atorvastatin (Lipitor) 40 MG tablet Indications: Mixed hyperlipidemia (CMS/HCC) Take 1 tablet (40 mg) by mouth Daily 90 tablet 1 08/20/2024 02/16/2025 Active Start: 07-04-2019 End: 08-11-2024 take 1 tablet by mouth once daily atorvastatin (Lipitor) 40 MG tablet Indications: Mixed hyperlipidemia (CMS/HCC) Take 1 tablet (40 mg) by mouth Daily 90 tablet 1 02/13/2024 08/11/2024 Active bisacodyl 10 mg rectal suppository (2 sources) Stimulant Laxative Start: 07-03-2019 End: 08-23-2019 Blood Glucose Monitoring Suppl (ONE TOUCH ULTRA 2) w/Device kit (20 sources) Start: 08-30-2022 Blood Glucose Monitoring Suppl (ONE TOUCH ULTRA 2) w/Device kit USE ONCE DAILY TO CHECK BLOOD SUGAR. 08/30/2022 Active Start: 08-30-2022 Blood Glucose Monitoring Suppl (ONE TOUCH ULTRA 2) w/Device kit USE ONCE DAILY TO CHECK BLOOD SUGAR. 0 08/30/2022 Active bumetanide 2 mg oral tablet (8 sources) Loop Diuretic Start: 07-24-2019 Start: 07-23-2019 take 2 mg by mouth twice daily 2 mg, Oral, 2 TIMES DAILY, First dose on 07/23/19 at 2100 Start: 07-22-2019 2 mg, Intraven ous, ONCE, 07/22/19 at 0715, For 1 dose Start: 07-18-2019 End: 07-23-2019 1 mg, Intravenous, 2 TIMES D AILY, First dose (after last modification) on 07/22/19 at 1900 Start: 07-16-2019 2 mg, Intraven ous, PRN, after blood transfusion, Starting 07/16/19 at 1054, For 1 dose Start: 07-13-2019 End: 07-18-2019 3 mg, Intravenous, 2 TIMES D AILY, First dose (after last modification) on Tue07/13/19 at 2100 Start: 07-12-2019 End: 07-13-2019 3 mg, Intravenous, 3 TIMES D AILY, First dose on [place] 07/12/19 at 1400 calcium carbonate 500 mg oral tablet (3 sources) take 1 tablet by mouth once daily calcium carbonate (OSCAL) 500 MG TABS tablet Take 1 tablet by mouth daily 0 Active calcium carbonate 1250 mg / cholecalciferol 0.01 mg oral tablet (1 source) Vitamin D Calcium 500 + D 500 mg-10 mcg (400 unit) tablet - Active calcium citrate 1040 mg oral tablet (20 sources) Start: 4 take 1 tablet by mouth once daily Calcium Citrate 250 mg calcium tablet Active 250 MG PO Daily March 07, 2024 11:00pm carvedilol 12.5 mg oral tablet (20 sources) alpha-Adrenergic Peyton, beta-Adrenergic Peyton Start: 3 take 0.5 tablet by mouth in the morning, then take 0.5 tablet by mouth at mealtime carvediloL (COREG) 12.5 mg tablet Take 0.5 tablets (6.25 mg total) by mouth in the morning and 0.5 tablets (6.25 mg total) in the evening. Take with meals. 30 tablet 0 11/23/2022 Active Start: 08-30-2021 End: 07-06-2024 take 1 tablet by mouth twice daily Carvedilol 6.25 mg tablet Active 6.25 MG PO Twice daily March 08, 2024 12:29pm Start: 11-19-2020 End: 03-08-2024 take 2 tablets by mouth twice daily Carvedilol 6.25 mg tablet Discontinued 12.5 MG PO Twice daily November 18, 2020 11:00pm March 08, 2024 12:34pm Start: 07-14-2019 take 1 tablet by lorenzo th twice daily at mealtime carvedilol (COREG) 12.5 MG tablet Take 1 tablet by mouth 2 times daily (with meals) 60 tablet 3 07/24/2019 Active Carvedilol Activ e cefuroxime 250 mg oral tablet (4 sources) Cephalosporin Antibacterial Start: 04-30-2024 End: 05-07-2024 take 1 tablet by mouth in the morning cefuroxime (Ceftin) 250 MG tablet Indications: Acute cystitis without hematuria Take 1 tablet (250 mg) by mouth in the morning and 1 tablet (250 mg) before bedtime. Do all this for 7 days. 14 tablet 04/30/2024 05/07/2024 Active chlorhexidine gluconate 1.2 mg/ml mouthwash (2 sources) Start: 07-03-2019 take 15 mL by mouth twice daily 15 mL, Mouth/Throat, 2 TIMES DAILY, First dose on Tue07/03/19 at 2100 Start: 07-03-2019 End: 07-03-2019 take 15 mL by mouth once 15 mL, Mouth/Throat, ONCE, T ue 07/03/19 at 1015, For 1 dose Morning of surgery Pre-op (day of surgery) cholecalciferol 0.125 mg oral tablet (20 sources) Vitamin D Start: 03-08-2024 take 1 tablet by mouth once daily Cholecalciferol (Vitamin D3) (Vitamin D3) 125 mcg (5,000 unit) tablet Active 125 MCG PO Daily March 08, 2024 12:27pm Start: 11-19-2020 End: 03-08-2024 take 1 tablet by mouth once daily Cholecalciferol (Vitamin D3) (Vitamin D3) 125 mcg (5,000 unit) Tablet Discontinued 250 MCG PO Daily November 18, 2020 11:00pm March 08, 2024 12:34pm take 1 capsule by [facility] once in the morning cholecalciferol (Vitamin D-3) 125 MCG (5000 UT) capsule Indications: Vitamin D Deficiency Take 5,000 Units by mouth in the morning. Active Vitamin D3 125 m cg (5,000 unit) tablet - Active Cholecalciferol (VITAMIN D) 125 MCG (5000 UT) CAPS Take 5,000 Units by mouth daily 0 Active take 2 tablets by mo [facility] in the morning cholecalciferol, vitamin D3, 5,000 units tablet Take 2 tablets (10,000 Units total) by mouth in the morning. 0 Active Cholecalciferol (VITAMIN D) 125 MCG (5000 UT) CAPS Take 10,000 Units by mouth daily 0 Active 168 hr cloNIDine 0.69589 mg/ hr transdermal system (3 sources) Central alpha-2 Adrenergic Agonist Start: 07-27-2019 Start: 07-20-2019 apply 1 dose transde rmal route every week 1 patch, Transdermal, Administer over 7 Days, WEEKLY, First dose on Tue07/20/19 at 1000 Apply to a clean, hairless area of the upper outer arm or chest. Rotate patch sites weekly. Start: 07-15-2019 End: 07-20-2019 apply 1 dose transdermal route every week 1 patch, Transdermal, Administer over 7 Days, WEEKLY, First dose on Tue07/15/19 at 1700 Apply to a clean, hairless area of the upper outer arm or chest. Rotate patch s clopidogrel 75 mg oral tablet (16 sources) [id number] Platelet Inhibitor Start: 08-13-2021 take 1 tablet by mouth once daily clopidogrel (PLAVIX) 75 MG tablet TAKE 1 TABLET BY MOUTH ONCE DAILY 0 08/13/2021 Active Start: 03-18-2019 take 75 mg by mouth once daily 75 mg, Oral, DAILY, First dose on Tue07/04/19 at 0900 cyclobenzaprine hydrochloride 10 mg oral tablet (2 sources) Muscle Relaxant Start: 06-22-2021 take 1 tablet by mouth twice daily as needed Cyclobenzaprine HCl 10 MG 1 tablet as needed Orally up to twice daily as needed for 15 days May, Active 24 hr dilTIAZem hydrochloride 180 mg extended release oral capsule (20 sources) Calcium Channel Peyton Start: 02-13-2024 End: 02-16-2025 take 1 capsule by mouth once daily dilTIAZem CD (Cardizem CD) 180 MG 24 hr capsule Indications: Primary hypertension (CMS/HCC) Take 1 capsule (180 mg) by mouth Daily 90 capsule 1 08/20/2024 02/16/2025 Active Start: 08-08-2023 End: 02-10-2024 take 1 capsule by mouth once daily dilTIAZem CD (Cardizem CD) 180 MG 24 hr capsule Indications: Primary hypertension (CMS/HCC) Take 1 capsule (180 mg) by mouth Daily 90 capsule 1 08/08/2023 02/10/2024 Discontinued (Reorder) Start: 05-19-2023 End: 08-17-2023 take 1 capsule by mouth every twenty-four hours in the morning dilTIAZem CD (Cardizem CD) 180 MG 24 hr capsule Indications: Primary hypertension (CMS/HCC) Take 1 capsule (180 mg) by mouth in the morning. 90 capsule 0 05/19/2023 08/17/2023 Active Start: 11-01-2022 take 1 capsule by mo uth once daily dilTIAZem (CARDIZEM CD) 120 MG extended release capsule Take 1 capsule by mouth daily 90 capsule 3 11/01/2022 Active take 1 capsule by mo uth every twenty-four hours in the morning dilTIAZem CD (CARDIZEM CD) 120 mg 24 hr capsule Take 1 capsule (120 mg total) by mouth in the morning. 0 Active docusate sodium 100 mg oral capsule (4 sources) Start: 07-03-2019 take 1 capsule by mouth twice daily as needed for constipation docusate sodium (COLACE, DULCOLAX) 100 MG CAPS Take 100 mg by mouth 2 times daily as needed for Constipation 15 capsule 0 07/24/2019 Active donepezil hydrochloride 10 mg oral tablet (20 sources) Start: 03-24-2023 End: 08-19-2024 take 2 tablets by mouth at bedtime donepezil (Aricept) 10 MG tablet Indications: Chronic organic brain syndrome Take 2 tablets (20 mg) by mouth at bedtime 180 tablet 1 02/21/2024 Active take 1 tablet by lorenzo th once daily in the evening donepezil 10 mg tablet take 1 tablet by oral route every day in the evening 10 MG - Active doxycycline monohydrate 100 mg oral capsule (1 source) Tetracycline-class Drug Start: 07-17-2022 take 1 capsule by mouth every twelve hours Doxycycline Monohydrate 100 MG 1 capsule Orally every 12 hrs for 10 days Jun, Active 0.5 ml dulaglutide 1.5 mg/ml auto-injector (20 sources) GLP-1 Receptor Agonist Start: 03-08-2024 Dulaglutide (Trulicity) 0.75 mg/0.5 mL pen injector Active 0.75 MG SUBCUT every week March 07, 2024 11:00pm Dulaglutide (RONY LICITY SC) Inject 2.5 mg into the skin once a week 0 Active DULoxetine 20 mg delayed release oral capsule (20 sources) Serotonin and Norepinephrine Reuptake Inhibitor Start: 07-16-2024 End: 10-28-2024 take 2 capsules by mouth once daily DULoxetine (Cymbalta) [address] capsule Indications: Anxiety associated with depression Take 2 capsules (40 mg) by mouth Daily Do not crush or chew. 60 capsule 2 07/30/2024 10/28/2024 Active Start: 11-19-2020 End: 08-19-2024 take 1 capsule by mouth once daily DULoxetine (Cymbalta) [address] capsule Indications: Anxiety associated with depression Take 1 capsule (60 mg) by mouth Daily 90 capsule 1 02/21/2024 08/19/2024 Active DULoxetine HCl A ctive 0.8 ml enoxaparin sodium 100 mg/ml prefilled syringe (1 source) Low Molecular Weight Heparin Start: 07-23-2019 80 mg (rounded from 79.7 mg = 1 mg/kg 79.7 kg), Subcutaneous, 2 TIMES DAILY, First dose on Tue07/23/19 at 1300 Bridging off of heparin IV and await for therapeutic INR. Ferrous Bisglycinate Chelate 28 MG capsule (1 source) Start: 06-15-2023 End: 07-15-2023 take 1 capsule by mouth at mealtime Ferrous Bisglycinate Chelate 28 MG capsule Indications: Iron deficiency anemia due to chronic blood loss Take 1 capsule by mouth in the evening. Take with meals 0 06/15/2023 07/15/2023 Active FLUoxetine 4 mg/ml oral solution (19 sources) Serotonin Reuptake Inhibitor Start: 07-20-2019 take 10 mg by mouth once daily 10 mg, Oral, DAILY, First dose on Tue07/20/19 at 1500 Start: 03-18-2019 take 1 capsule by mo uth once daily FLUoxetine (PROZAC) 40 MG capsule Take 40 mg by mouth daily 1 03/18/2019 Active Fluoxetine Activ e furosemide 20 mg oral tablet (20 sources) Loop Diuretic Start: 08-14-2024 End: 08-20-2024 furosemide (Lasix) 20 MG tablet Indications: Primary hypertension (CMS/HCC) , Chronic diastolic congestive heart failure, NYHA class 1 (CMS/HCC) , Edema, unspecified type 2 tablets every am (= 40 mg) and 1 tablet (=20 mg) daily before supper 90 tablet 1 08/20/2024 Active Start: 06-18-2024 furosemide (La six) 20 MG tablet Indications: Chronic diastolic congestive heart failure, NYHA class 1 (CMS/HCC) , Primary hypertension (CMS/HCC) , Edema, unspecified type 2 tablets every am (= 40 mg) and 1 tablet (=20 mg) daily before supper 90 tablet 06/18/2024 Active Start: 11-19-2020 End: 07-01-2024 take 1 tablet by mouth once daily furosemide (Lasix) 40 MG tablet Indications: Diastolic congestive heart failure, NYHA class 1, unspecified congestive heart failure chronicity (CMS/HCC) Take 1 tablet (40 mg) by mouth Daily 90 tablet 1 01/03/2024 07/01/2024 Active Start: 07-09-2019 End: 07-11-2019 80 mg, Intravenous, EVERY 12 HOURS, First dose on Tue07/09/19 at 0800 Start: 07-06-2019 End: 07-08-2019 80 mg, Intravenous, ONCE, Black n 07/08/19 at 1145, For 1 dose Start: 07-06-2019 End: 07-06-2019 Starting Tue07/06/19 at 1105 , For 1 dose Germania Andres: cabinet override take 1 tablet by lorenzo th once daily furosemide (LASIX) 20 MG tablet Take 20 mg by mouth daily 0 Active glipiZIDE 5 mg oral tablet (20 sources) Sulfonylurea Start: 12-29-2022 End: 02-21-2024 glipiZIDE (Glucotrol) 10 MG tablet Indications: Type 2 diabetes mellitus with both eyes affected by mild nonproliferative retinopathy without macular edema, without long-term current use of insulin (CMS/HCC) Take Glipizide 10mg and Glipizide 5mg together (=15mg total) twice a day, in am and evening before meal 180 tablet 1 12/29/2022 02/21/2024 Discontinued (Therapy completed) Start: 12-29-2022 End: 02-21-2024 glipiZIDE (Glucotrol) 5 MG t ablet Indications: Type 2 diabetes mellitus with both eyes affected by mild nonproliferative retinopathy without macular edema, without long-term current use of insulin (CMS/HCC) Take Glipizide 5mg and Glipizide 10mg together (=15mg total) twice a day, in am and evening before meal 180 tablet 1 12/29/2022 02/21/2024 Discontinued (Therapy completed) Start: 08-30-2021 take 1 tablet by lorenzo th twice daily before mealtime glipiZIDE (GLUCOTROL) 5 MG tablet TAKE 1 TABLET BY MOUTH TWICE DAILY BEFORE A MEAL 0 08/30/2021 Active Start: 08-30-2021 End: 09-27-2023 take 1 tablet by mouth once daily glipiZIDE (GLUCOTROL) 5 MG tablet Take 1 tablet by mouth daily 0 08/30/2021 09/27/2023 Discontinued (LIST CLEANUP) Start: 11-19-2020 End: 03-08-2024 take 1 tablet by mouth twice daily glipiZIDE (GLUCOTROL) 10 MG tablet 1 tablet 2 TIMES DAILY (route: oral) 0 01/10/2023 Active glipiZIDE Active glucagon (rdna) 1 mg injection (1 source) Antihypoglycemic Agent Start: 07-03-2019 take 1 mL intravenous route every hour 1 mg, Intramuscular, PRN, Low blood sugar, Blood glucose less than 70 mg/dL and patient NOT ALERT or NPO and does not have IV access., Starting Tue07/03/19 at 1726 After administration, attempt intravenous access and start D5W at 100 mL/hr. Repeat blood glucose in 15 minutes x2 and notify provider. 150 ml glucose 50 mg/ml injection (3 sources) Start: 07-03-2019 15 g, Oral, PRN, Low blood sugar, Starting 07/03/19 at 1726 If blood glucose less than 50 mg/dL and patient ALERT and TOLERATING PO, give 2 tubes glucose gel. If blood glucose less than 70 mg/dL and patient ALERT and TOLERATING PO, give 1 tube glucose gel. Repeat blood glucose in 15 minutes. If blood glucose is less than 70 mg/dL, repeat treatment and recheck blood glucose in 15 minutes x2 and notify provider. Start: 07-03-2019 12.5 g, Intrav enous, PRN, Low blood sugar, Blood glucose less than 70 mg/dL and patient NOT ALERT or NPO., Starting 07/03/19 at 1726 If patient does not respond within 5 minutes, repeat dose x1. Start D5W at 100 mL/hour until ordering provider can be reached. Repeat blood glucose in 15 minutes. If blood glucose is less than 70 mg/dL, repeat treatment and recheck blood glucose in 15 minutes x2. If using Glucostabilizer, dose as instructed per system. Start: 07-03-2019 100 mL/hr, Int ravenous, at 100 mL/hr, PRN, Low blood sugar, Starting 07/03/19 at 1726 Start infusion following administration of dextrose 50% or glucagon. hydrALAZINE hydrochloride 25 mg oral tablet (9 sources) Arteriolar Vasodilator Start: 07-24-2019 take 1 tablet by mouth every eight hours hydrALAZINE (APRESOLINE) 25 MG tablet Take 1 tablet by mouth every 8 hours 90 tablet 3 07/24/2019 Active Start: 07-21-2019 15 mg, Intrave nous, EVERY 6 HOURS PRN, High Blood Pressure, Starting 07/21/19 at 2253 For high blood pressure, SBP > 160 or DBP > 100. Hold for HR more than 90 Start: 07-21-2019 take 1 dose by mouth three times daily 25 mg, Oral, EVERY 8 HOURS SCHEDULED (3 times per day), First dose on 07/21/19 at 1400 Start: 07-19-2019 End: 07-21-2019 10 mg, Intravenous, EVERY 6 HOURS PRN, High Blood Pressure, SBP > 160 or DBP > 100. Hold for HR more than 90, Starting Jesica 07/19/19 at 1700 Start: 07-14-2019 End: 07-19-2019 10 mg, Intravenous, EVERY 4 HOURS PRN, High Blood Pressure, SBP > 160 or DBP > 100. Hold for HR more than 90, Starting 07/14/19 at 0744 Start: 07-05-2019 10 mg, Intrave nous, ONCE, Jesica 07/05/19 at 1030, For 1 dose Start: 07-03-2019 End: 07-14-2019 5 mg, Intravenous, EVERY 5 M IN PRN, High Blood Pressure, Starting 07/03/19 at 1726 Refer to hemodynamic goals for specific blood pressure parameters. May repeat doses up to a total of 20mg IV every 6 hours. insulin glargine 100 unt/ml injectable solution (6 sources) Insulin Analog Start: 07-24-2019 insulin glargi ne (LANTUS) 100 UNIT/ML injection vial Inject 20 Units into the skin nightly 1 vial 3 07/24/2019 Active Start: 07-17-2019 Start: 07-16-2019 End: 07-17-2019 inject 15 [IU] by subcutaneous injection once daily 15 Units, Subcutaneous, NIGHTLY, First dose (after last modification) on Tue07/16/19 at 2100 insulin lispro 100 unt/ml injectable solution (12 sources) Insulin Analog Start: 07-24-2019 insulin lispro (HUMALOG) 100 UNIT/ML injection vial Inject 0-9 Units into the skin nightly 1 vial 3 07/24/2019 Active Start: 07-24-2019 insulin lispro (HUMALOG) 100 UNIT/ML injection vial Inject 0- 18 Units into the skin 3 times daily (with meals) 1 vial 3 07/24/2019 Active Start: 07-03-2019 End: 07-23-2019 Start: 07-03-2019 End: 07-11-2019 0-18 Units, Subcutaneous, 3 TIMES DAILY WITH MEALS, First dose on Tue07/11/19 at 0830 High Dose Corrective Algorithm Glucose: Dose: 70-139 &nbsp ; No Insulin 140-199 &nb sp; 3 Units 200-249 6 Units 250-299 9 Units 300-349 12 Units 350-400 15 Units Over 400 18 Units ipratropium bromide 0.042 mg/actuat metered dose nasal spray (19 sources) Anticholinergic Start: 12-20-2023 End: 08-29-2024 ipratropium (Atrovent) 0.06 % nasal spray Indications: Anxiety associated with depression Administer 2 sprays into each nostril in the morning and 2 sprays at noon and 2 sprays in the evening and 2 sprays before bedtime. 15 mL 07/30/2024 08/29/2024 Active 4 ml labetalol hydrochloride 5 mg/ml cartridge (1 source) beta-Adrenergic Peyton Start: 07-14-2019 10 mg, Intravenous, EVERY 4 HOURS PRN, High Blood Pressure, SBP > 160 or DBP > 100. Hold for HR less than 60, Starting 07/14/19 at 0744 levothyroxine sodium 0.088 mg oral tablet (20 sources) l-Thyroxine Start: 05-06-2023 End: 11-25-2024 take 1 tablet by mouth once daily levothyroxine (Synthroid, Levoxyl) 88 MCG tablet Indications: Acquired hypothyroidism (CMS/HCC) Take 1 tablet (88 mcg) by mouth Daily 90 tablet 1 05/29/2024 11/25/2024 Active Start: 07-16-2021 levothyroxine (SYNTHROID) 100 MCG tablet 1 tablet 0 07/16/2021 Active Start: 11-19-2020 End: 03-08-2024 take 1 tablet by mouth once daily Levothyroxine 125 mcg Tablet Discontinued 125 MCG PO Daily November 18, 2020 11:00pm March 08, 2024 12:26pm take 1 capsule by mo [facility] once daily levothyroxine 88 mcg capsule take 1 capsule by oral route every day 88 MCG - Active loratadine 10 mg oral tablet (4 sources) Start: 03-08-2024 take 1 tablet by mouth once daily Loratadine (Claritin) 10 mg tablet Active 10 MG PO Daily March 07, 2024 11:00pm losartin (2 sources) losartin Active Magnesium (20 sources) magnesium 200 mg tablet - Active End: 07-06-2024 magnesium 250 mg tablet - No Longer Active take 1 tablet by lorenzo th in the evening magnesium 200 MG tablet Take 200 mg by mouth in the evening. Active take 1 tablet by lorenzo th once daily magnesium 200 MG TABS tablet Take 1 tablet by mouth daily 0 Active take 1 tablet by lorenzo th in the evening magnesium 200 MG tablet Take 200 mg by mouth in the evening. 0 Active take 1 tablet by lorenzo th twice daily magnesium 200 MG TABS tablet Take 200 mg by mouth 2 times daily 0 Active magnesium gluconate 550 mg o ral tablet (15 sources) magnesium 30 mg tablet Take 250 mg by mouth 2 (two) times a day . 0 Active take 1 tablet by mouth every oth er day magnesium 30 MG tablet Take 30 mg by mouth every other day 0 Active magnesium oxide 400 mg oral tablet (6 sources) Start: 03-08-2024 Magnesium Oxid e 400 mg magnesium tablet Active 200 MG PO Daily March 08, 2024 12:28pm Start: 11-19-2020 End: 03-08-2024 Magnesium Oxide 400 mg magne sium Tablet Discontinued 400 MG PO As Directed November 18, 2020 11:00pm March 08, 2024 12:34pm take 0.5 tablet by m outh in the morning magnesium oxide (MAGOX) 400 mg tablet Take 0.5 tablets (200 mg total) by mouth in the morning. 0 Active 100 ml magnesium sulfate 10 mg/ml injection (1 source) Start: 07-03-2019 1 g, Intravenous, at 100 mL/hr, Administer over 1 Hours, PRN, Other, Electrolyte Replacement, Starting Tue07/03/19 at 1726 For magnesium less than 2 mg/dl give 1 gram X 2 doses (Total of 2 grams). Check with MD if elevation of BUN and creatinine. Repeat magnesium level in AM. methylPREDNISolone 4 mg oral tablet (1 source) Corticosteroid Start: 07-17-2022 methylPREDNISolone 4 MG as directed Orally Once a day for 6 days Jun, Active Misc Natural Products (COLON-AID) CAPS (11 sources) Misc Natural Pro ducts (COLON-AID) CAPS Take by mouth 0 Active Multivitamin preparation (1 source) take 1 tablet by mouth once daily at mealtime multivitamin tablet take 1 tablet by oral route every day with food - Active niacin 500 mg oral tablet (9 sources) Nicotinic Acid take 2 tablets by mouth once daily at bedtime niacin 500 MG tablet Take 500 mg by mouth daily with breakfast 2 tabs at bedtime . 0 Active End: 07-24-2019 niacin 500 MG ex tended release capsule Take 500 mg by mouth 0 Active NONFORMULARY (6 sources) take 1 tablet by mouth once daily NONFORMULARY Take 1 tablet by mouth daily Preser vision ARED 0 Active 2 ml ondansetron 2 mg/ml injection (20 sources) Serotonin-3 Receptor Antagonist Start: 0 4 mg, Intravenous, EVERY 8 HOURS PRN, Nausea, Starting Tue07/03/19 at 1726 take 1 tablet by lorenzo th every twenty-four hours as needed for nausea and vomiting ondansetron ODT (Zofran-ODT) 4 MG disintegrating tablet Take 4 mg by mouth Daily as needed for nausea or vomiting. Active take 1 tablet by lorenzo th every eight hours as needed for nausea ondansetron (ZOFRAN) 4 MG tablet Take 1 tablet by mouth every 8 hours as needed for Nausea or Vomiting 0 Active polyethylene glycol 3350 64329 mg powder for oral solution (1 source) Osmotic Laxative Start: 07-04-2019 17 g, Oral, D AILY, First dose on Tue07/04/19 at 0900 First line therapy for constipation Polyethylene Glycols (3 sources) Start: 11-19-2020 POLYETHYLENE G LYCOL EX Polyethylene Glycol Active 1 EACH MISCELLANE Daily November 19, 2020 11:14am 0 11/19/2020 Active Start: 11-19-2020 End: 03-08-2024 Polyethylene Glycol Powder D iscontinued 1 EACH MISCELLANE Daily as needed for Constipation November 18, 2020 11:00pm March 08, 2024 12:34pm potassium 99 mg extended release oral tablet (8 sources) Potassium 99 MG TABS Take 30 mg by mouth 2 times daily 0 Active 100 ml potassium chloride 0.1 meq/ml injection (8 sources) Start: 07-22-2019 take 10 mL intravenous route every hour as needed 10 mEq, Intravenous, at 100 mL/hr, PRN, Potassium Replacement, Starting 07/22/19 at 0657 K Lab Replacement Action 3.1-3.5&nbsp ; &nbsp ; 10 mEq IVPB x 4 doses (40 mEq Total) 2.7-3.0&nbsp ; &nbsp ; 10 mEq IVPB x 6 doses (60 mEq Total) < 2.7 &nb sp; &nb sp; CALL PHYSICIAN and 10 mEq IVPB x 6 doses (60 mEq Total) Infuse at 10 mEq/hr. Repeat Potassium lab 1 hour after final administration. Not for use in patients with CrCl less than 30 mL/min. Start: 07-14-2019 End: 07-15-2019 20 mEq, Oral, 2 TIMES DAILY, First dose on 07/14/19 at 1330, For 2 doses Dilute each 15 mL in at least 6 ounces of water or fruit juice. May further dilute if GI adverse effects occur. Start: 07-11-2019 End: 07-11-2019 40 mEq, Intravenous, at 50 m L/hr, ONCE, Tue07/11/19 at 1700, For 1 dose Start: 07-03-2019 End: 07-09-2019 20 mEq, Intravenous, at 50 m L/hr, EVERY HOUR, First dose on Tue07/09/19 at 0800, For 2 doses Klor-Con M20 Act junito take 3 tablets by [facility] twice daily in the evening potassium chloride (K-DUR) 10 MEQ CR tablet Take 10 mEq by mouth 2 (two) times a day 3 tabs in am and 3 tabs in pm . 0 Active potassium,chelated 99 mg ora l tablet (5 sources) Potassium 99 MG TABS Take by mouth 0 Active psyllium 400 mg oral capsule (6 sources) Start: 11-19-2020 psyllium 0.52 g capsule Psyllium Husk (Metamucil) 0.52 gram Capsule Active 0.52 GM PO Daily November 19, 2020 11:14am 0 11/19/2020 Active Start: 11-19-2020 End: 03-08-2024 Psyllium Husk (Metamucil) 0. 52 gram Capsule Discontinued 0.52 GM PO Daily as needed for Constipation November 18, 2020 11:00pm March 08, 2024 12:34pm QUEtiapine 25 mg oral tablet (8 sources) Atypical Antipsychotic Start: 06-07-2023 QUEtiap ine (SEROquel) 25 MG tablet Indications: Multi-infarct dementia with delirium (CMS/HCC) 1/2 - 1 tablet at bedtime 30 tablet 0 06/07/2023 Active Start: 07-20-2019 Start: 07-18-2019 End: 07-20-2019 take 25 mg by mouth twice daily 25 mg, Oral, 2 TIMES D AILY, First dose on Tue07/18/19 at 1300 First dose tonight. sennosides, care home 8.6 mg oral capsule (18 sources) Sennosides 8.6 M G capsule as needed at bedtime. Active thiamine 100 mg oral tablet (2 sources) Start: 07-25-2019 Start: 07-15-2019 take 100 mg by mouth once michel y 100 mg, Oral, DAILY, First dose on Tue07/15/19 at 0930 tiZANidine 4 mg oral tablet (7 sources) Central alpha-2 Adrenergic Agonist Start: 10-20-2012 Start: 10-20-2012 tiZANidine (ZA NAFLEX) 4 MG tablet Take 4 mg of ampicillin by mouth Takes as needed 0 10/20/2012 Active traMADol hydrochloride 50 mg oral tablet (2 sources) Opioid Agonist take 1 tablet by mouth four times daily as needed for pain traMADol (ULTRAM) 50 MG tablet Take 50 mg by mouth 4 times daily as needed for Pain. 0 Active triamcinolone acetonide 1 mg/ml topical cream (18 sources) Corticosteroid Start: 07-11-2023 triamcinolone (Kenalog) 0.1 % cream Indications: Dermatitis Apply topically Daily 90 g 07/11/2023 Active Start: 03-05-2017 KENALOG - 10 m g 14 Feb, 2017 20 mg UNABLE TO FIND (6 sources) UNABLE TO FIND I ndications: eothyrox Indications: eothyrox 0 Active UNABLE TO FIND I ndications: ther-biotic complete Indications: ther-biotic complete 0 Active Vitamin D3 (1 source) Vitamin D3 Activ e warfarin sodium 2.5 mg oral tablet (6 sources) Vitamin K Antagonist Start: 07-24-2019 2.5 mg, Oral, ONCE Warfarin, Tue07/24/19 at 1800, For 1 dose Review INR prior to administration. Rodarte zardous med- See facility policy for handling/disposal Start: 07-24-2019 take 1 tablet by lorenzo th once daily warfarin (COUMADIN) 2.5 MG tablet Take 1 tablet by mouth daily Please have patient hold dose on 07-25-19. Pt is therapeutic of INR 3.0. dose changed from 5mg to 2.5mg. 30 tablet 3 07/24/2019 Active Start: 07-22-2019 5 mg, Oral, ON CE Warfarin, Tue07/23/19 at 1800, For 1 dose Review INR prior to administration. Hazardous med- See facility policy for handling/disposal (20 sources) Start: 07-24-2019 This patient i s currently receiving daily warfarin. Please check INR's and signs/symptoms of bleeding and bruising as appropriate. Hold for INR greater than 3.5 and contact physician. Start: 07-19-2019 End: 07-20-2019 1.5 g, Intravenous, EVERY 12 HOURS, First dose (after last modification) on Jesica 07/19/19 at 0100, Until Discontinued Start: 07-17-2019 End: 07-18-2019 1.5 g, Intravenous, EVERY 6 HOURS, First dose on Tue07/17/19 at 1200, Until Discontinued Start: 07-15-2019 End: 07-17-2019 1 g, Intravenous, EVERY 12 H OURS, First dose on Tue07/15/19 at 1145, Until Discontinued Start: 07-15-2019 End: 07-23-2019 500 Units/hr (5 mL/hr), Intr avenous, at 5 mL/hr, CONTINUOUS, Starting Tue07/15/19 at 1130 LOW DOSE HEPARIN PROTOCOL Start at 500 units/hr Adjust infusion rate based on aPTT results (aPTT target range 1.5-2) - No boluses aPTT < 30 Increase infusion by 4 units/kg/hr aPTT 30-49 Increase infusion by 2 units/kg/hr aPTT 50-70 No change aPTT 71-85 Decrease infusion by 2 units/kg/hr aPTT > 85 Hold heparin for 60 min Decrease infusion by 3 units/kg/hr aPTT > 100 Hold heparin for 60 min Decrease infusion by 4 units/kg/hr Check aPTT 6 hours after initiation and 6 hours after every dose change. Start: 07-11-2019 End: 07-15-2019 2 g, Intravenous, EVERY 24 H OURS, First dose on Tue07/11/19 at 1800, Until Discontinued Start: 07-11-2019 End: 07-12-2019 10 mg/hr (10 mL/hr), Intrave nous, at 10 mL/hr, CONTINUOUS, Starting Tue07/11/19 at 1700 Adjust Lasix drip every 4 hours as needed to achieve a urine output between 101 50 mL an hour. The dose adjustment should be in 10 mg/h increments. Maximum Lasix infusion rate is 40 mg an hour. Start: 07-11-2019 End: 07-15-2019 2 mg/hr (2 mL/hr), Intraveno us, at 2 mL/hr, CONTINUOUS, Starting Tue07/11/19 at 0545 For sedation, titrate to RASS -1 to -2 Dose Range: 1 to 10 mg/hr Max dose: 10 mg/hr Contact physician if max dose does not achieve desired response If RASS 1 to 2 points below goal, decrease rate by 1 mg/hr no faster than every 30 min If RASS at goal, continue current rate If RASS 1 to 2 points above goal, administer 2mg IV bolus dose and increase rate by 1 mg/hr no faster than every 30 min If RASS 3 to 4 points above goal, administer 2mg IV bolus dose and increase rate by 2mg/hr no faster than every 30 min If patient fails sedation interruption, administer bolus of midazolam 2 mg IV and resume titration at 50% of previous rate Start: 07-07-2019 End: 07-07-2019 150 mg, Intravenous, at 600 mL/hr, Administer over 10 Minutes, ONCE, 07/07/19 at 0815, For 1 dose Use in-line filter. Start: 07-06-2019 End: 07-15-2019 2 mcg/min (1.875 mL/hr, roun ded to 1.9 mL/hr), Intravenous, at 1.9 mL/hr, CONTINUOUS, Starting 07/06/19 at 1015 Titrate to SBP greater than 100 Dose Range 0.01 to 3.3 mcg/kg/min &nbsp ; Max Dose 3.3 mcg/kg/min Contact physician if max dose does not achieve desired response Titrate by 0.05 mcg/kg/min no faster than every 5 minutes to goal Start: 07-06-2019 End: 07-11-2019 1 mg/min (33.3333 mL/hr, rou nded to 33.3 mL/hr), Intravenous, at 33.3 mL/hr, CONTINUOUS, Starting 07/06/19 at 0830 Use in-line filter. Start: 07-06-2019 End: 07-06-2019 150 mg, Intravenous, at 600 mL/hr, Administer over 10 Minutes, ONCE, 07/06/19 at 0830, For 1 dose Use in-line filter. Start: 07-04-2019 End: 07-20-2019 0.2 mcg/kg/hr 76.5 kg (3.825 mL/hr, rounded to 3.8 mL/hr), Intravenous, at 3.8 mL/hr, CONTINUOUS, Starting Tue07/04/19 at 2215 For sedation, titrate to RASS +1 to -1 Dose Range: 0.2 to 1.4 mcg/kg/hr Max dose: 1.4 mcg/kg/hr Contact physician if max dose does not achieve desired response If RASS 1 or more points below goal, decrease rate by 0.1 mcg/kg/hr no faster than every 30 min If RASS at goal, continue same rate If RASS 1 or more points above goal, increase rate by 0.1 mcg/kg/hr no faster than every 30 min Start: 07-03-2019 End: 07-16-2019 1 mcg/kg/min 65.4 kg (196.2 mL/hr), Intravenous, at 196.2 mL/hr, CONTINUOUS, Starting Tue07/03/19 at 2345 Titrate to MAP greater than 65 Dose Range: 0.1 to 1 mcg/kg/min Max Dose: 3 mcg/kg/min Contact physician if max dose does not achieve desired response Titrate by 0.1 mcg/kg/min no faster than every 5 minutes to goal Start: 07-03-2019 End: 07-15-2019 0.02 mcg/kg/min 65.4 kg (1.2 263 mL/hr, rounded to 1.2 mL/hr), Intravenous, at 1.2 mL/hr, CONTINUOUS, Starting Tue07/03/19 at 2345 Titrate to MAP greater than 65 Dose Range 0.01 to 3.3 mcg/kg/min &nb sp; &nbs p; Max Dose 3.3 mcg/kg/min Contact physician if max dose does not achieve desired response Titrate by 0.05 mcg/kg/min no faster than every 5 minutes to goal Start: 07-03-2019 End: 07-15-2019 1 Units/hr (1 mL/hr), Intrav enous, at 1 mL/hr, CONTINUOUS, Starting Tue07/03/19 at 2245 Low target: 80 High target: 130 Begin infusion rate by the following formula: (BG - 60) x 0.03 = insulin units per hour. Adjust current multiplier(0.03) in drip formula by doing the following steps: * Whenever BG is greater than 180 increase multiplier by 0.01 * Whenever BG is less than 140 decrease multiplier by 0.01 * Whenever BG is between 140 - 180 no change in multiplier Recalculate insulin dose with every BG drawn, even if the multiplier does not change. Hold insulin infusion if BS< 80 mg/dl, if BS < 70 mg/dl follow hypoglycemia treatment orders, continue to check BS as ordered, and restart insulin infusion if and when BS increases back into goal range decreasing last multiplier by 0.01 Start: 07-03-2019 End: 07-15-2019 2 mcg/kg/min 65.4 kg (3.924 mL/hr, rounded to 3.9 mL/hr), Intravenous, at 3.9 mL/hr, CONTINUOUS, Starting Tue07/03/19 at 2145 Dose Range: 0.5 to 10 mcg/kg/min Max Dose: 10 mcg/kg/min Contact physician if max dose does not achieve desired response TOF is higher than goal (more than 2 out of 4 twitches) or patient is NOT achieving desired clinical response of motor activity cessation: Increase infusion dose by 0.5 mcg/kg/min and re-assess TOF and clinical response in 1 hour If TOF is below goal (no twitches): Check placement of peripheral nerve stimulator, verify patient is achieving clinical goal, then decrease infusion dose by 0.5 mcg/kg/min and re-assess TOF and clinical response in 1 hour Start: 07-03-2019 take 1 tablet by lorenzo th every four hours as needed for pain [Order 1 Start] Name: oxyCODONE-acetaminophen (PERCOCET) 5-325 MG per tablet 1 tablet Signed Summary: 1 tablet, Oral, EVERY 4 HOURS PRN, Pain Moderate (4-6), Starting Tue07/03/19 at 1726 Maximum dose of acetaminophen is 4000 mg from all sources in 24 hours. [Order 1 End] [Order 2 Start] Name: oxyCODONE-acetaminophen (PERCOCET) 5-325 MG per tablet 2 tablet Signed Summary: 2 tablet, Oral, EVERY 4 HOURS PRN, Pain Severe (7-10), Starting Tue07/03/19 at 1726 Maximum dose of acetaminophen is 4000 mg from all sources in 24 hours. [Order 2 End] Start: 07-03-2019 1 g, Intraveno us, at 100 mL/hr, Administer over 60 Minutes, PRN, Other, Electrolyte Replacement, Starting Tue07/03/19 at 1726 Administer 1 gram over 1 hour for ionic calcium level less than 1.05 mmol/L End: 07-24-2019 (2 sources) Start: 07-25-2019 Start: 07-04-2019 take 1 tablet by lorenzo th once daily at breakfast 1 tablet, Oral, DAILY WITH BREAKFAST, First dose on Tue07/04/19 at 0800 Start when taking po. (1 source) Completed/Discontinued Medications Medication Drug Class(es) Dates Sig (Normalized) Sig (Original) acetaminophen 325 mg / HYDROcodone bitartrate 5 mg oral tablet (2 sources) Opioid Agonist Start: 11-19-2020 End: 03-08-2024 take 1 tablet by mouth twice daily as needed for pain Hydrocodone-Aceta minophen 5-325 mg Tablet Discontinued 1 TAB PO Twice daily as needed for Pain November 18, 2020 11:00pm March 08, 2024 12:34pm amLODIPine 10 mg oral tablet (20 sources) Dihydropyridine Calcium Channel Peyton Start: 07-19-2019 End: 07-21-2019 take 5 mg by mouth once daily 5 mg, Oral, DAILY, First dose on Tue07/19/19 at 1130 Start: 03-18-2019 End: 03-08-2024 take 1 tablet by mouth once daily Amlodipine 10 mg tablet Discontinued 10 MG PO Daily November 18, 2020 11:00pm March 08, 2024 12:33pm 10 ml calcium chloride 100 mg/ml prefilled syringe (1 source) Start: 07-03-2019 End: 07-03-2019 Starting Tue07/03/19 at 1825, For 1 dose GARCÍAISAI SHANKSA: cabinet override calcium chloride 0.0014 meq/ml / potassium chloride 0.004 meq/ml / sodium chloride 0.103 meq/ml / sodium lactate 0.028 meq/ml injectable solution (1 source) Start: 07-03-2019 End: 07-16-2019 Intravenous, at 125 mL/hr, CONTINUOUS, Starting Tue07/03/19 at 0700 chlorothiazide 500 mg injection (3 sources) Thiazide Diuretic Start: 07-17-2019 End: 07-17-2019 500 mg, Intravenous, ONCE, 07/17/19 at 1115, For 1 dose Reconstitute vial with 18 mL sterile water for injection for a final concentration of 28 mg/mL. Start: 07-15-2019 End: 07-15-2019 500 mg, Intravenous, ONCE, S un 07/15/19 at 1700, For 1 dose Reconstitute vial with 18 mL sterile water for injection for a final concentration of 28 mg/mL. Start: 07-12-2019 End: 07-12-2019 500 mg, Intravenous, ONCE, T hu 07/12/19 at 1200, For 1 dose Reconstitute vial with 18 mL sterile water for injection for a final concentration of 28 mg/mL. 100 ml clevidipine 0.5 mg/ml injection (1 source) Dihydropyridine Calcium Channel Peyton Start: 07-10-2019 End: 07-12-2019 2 mg/hr (4 mL/hr), Intravenous, at 4 mL/hr, CONTINUOUS, Starting Tue07/10/19 at 0815 Titrate to SBP 130-140 Dose Range: 4 to 21 mg/hr Max dose: 32 mg/hr (recommend maximum total volume of 1000 mL due to lipid load) Contact physician if max dose does not achieve desired response Titrate by 2 mg/hr no faster than every 2 minutes to goal If rapid blood pressure lowering is clinically indicated, contact prescriber for orders to double the infusion rate no faster than every 2 minutes to goal When approaching therapeutic goal or weaning off, smaller titration increments of 1 mg/hr no faster than every 2 minutes may be used to maintain goal 1 ml dexamethasone phosphate 4 mg/ml injection (1 source) Corticosteroid Start: 07-18-2019 End: 07-20-2019 4 mg, Intravenous, EVERY 6 HOURS, First dose on Tue07/18/19 at 1300 diphenhydrAMINE hydrochloride 25 mg oral capsule (20 sources) Histamine-1 Receptor Antagonist Start: 11-19-2020 End: 03-08-2024 take 1 capsule by mouth once daily at bedtime Diphenhydramine Hcl (Benadryl) 25 mg Capsule Discontinued 25 MG PO Daily at bedtime November 18, 2020 11:00pm March 08, 2024 12:33pm Start: 07-04-2019 End: 07-15-2019 take 25 mg by mouth once daily as needed for sleep 25 mg, Oral, NIGHTLY PRN, Sleep, Starting Tue07/04/19 at 0000 Start: 10-20-2012 take 2 capsules by m outh every four to six hours as needed Benadryl 25 mg capsule take 2 capsule (50MG) by oral route every 4 - 6 hours as needed 50 MG - Active 500 ml DOPamine hydrochloride 1.6 mg/ml injection (1 source) Catecholamine Start: 07-06-2019 End: 07-15-2019 2.5 mcg/kg/min 81 kg (7.5938 mL/hr, rounded to 7.6 mL/hr), Intravenous, at 7.6 mL/hr, CONTINUOUS, Starting Tue07/06/19 at 0715 Map >65 Dose Range: 2.5 to 5 mcg/kg/min up to 20 mcg/kg/min Max dose: 20 mcg/kg/min Contact physician if max dose does not achieve desired response If rate LESS than 10 mcg/kg/min titrate by 2.5 mcg/kg/min no faster than every 5 minutes to goal If rate GREATER than or equal to 10 mcg/kg/min titrate by 5 mcg/kg/min no faster than every 5 minutes to goal When approaching therapeutic goal or weaning off, smaller titration increments of 1 mcg/kg/min no faster than every 5 minutes may be used to maintain goal 20 ml etomidate 2 mg/ml injection (1 source) General Anesthetic Start: 07-11-2019 End: 07-11-2019 Intravenous, DAILY PRN, Starting Tue07/11/19 at 0502 famotidine 20 mg oral tablet (20 sources) Histamine-2 Receptor Antagonist Start: 07-06-2019 End: 03-08-2024 take 1 tablet by mouth once daily Famotidine 20 mg tablet Discontinued 20 MG PO Daily November 18, 2020 11:00pm March 08, 2024 12:33pm Start: 07-05-2019 End: 07-05-2019 take 20 mg by mouth twice daily 20 mg, Oral, 2 TIMES D AILY, First dose on Jesica 07/05/19 at 0900 Start: 07-03-2019 20 mg, Intrave nous, 2 TIMES DAILY, First dose on Tue07/03/19 at 2100, For 3 doses Dilute with 5-10 mL 0.9% sodium chloride. Administer over 2 minutes. gabapentin 600 mg oral tablet (8 sources) Anti-epileptic Agent Start: 11-19-2020 End: 03-08-2024 take 1 tablet by mouth twice daily Gabapentin 600 mg tablet Discontinued 600 MG PO Twice daily November 18, 2020 11:00pm March 08, 2024 12:33pm take 1 capsule by [facility] every twenty-four hours Gabapentin 300 MG 1 capsule Orally Once a day Active take 1 tablet by mouth three yvrose es daily gabapentin (NEURONTIN) 600 MG tablet Take 600 mg by mouth 3 times daily. 0 Active gemfibrozil 600 mg oral tabl et (16 sources) Peroxisome Proliferator Receptor alpha Agonist Start: 03-18-2019 End: 07-24-2019 Gemfibrozil Acti ve 250 ml heparin sodium, porcine 100 unt/ml injection (2 sources) Unfractionated Heparin, Anti-coagulant Start: 07-09-2019 End: 07-15-2019 500 Units/hr (5 mL/hr), Intravenous, at 5 mL/hr, CONTINUOUS, Starting Tue07/09/19 at 1145 LOW DOSE HEPARIN PROTOCOL Start at 500 units/hr Adjust infusion rate based on aPTT results (aPTT target range 1.5-2) - No boluses aPTT < 30 Increase infusion by 4 units/kg/hr aPTT 30-49 Increase infusion by 2 units/kg/hr aPTT 50-70 No change aPTT 71-85 Decrease infusion by 2 units/kg/hr aPTT > 85 Hold heparin for 60 min Decrease infusion by 3 units/kg/hr aPTT > 100 Hold heparin for 60 min Decrease infusion by 4 units/kg/hr Check aPTT 6 hours after initiation and 6 hours after every dose change. Start: 07-07-2019 End: 07-09-2019 inject 1 dose by subcutaneous injection three times daily 5,000 Units, Subcutaneous, EVERY 8 HOURS SCHEDULED (3 times per day), First dose on 07/07/19 at 1400 Lactobacillus Combination No.4 (Probiotic) 3 billion cell Capsule (2 sources) Start: 11-19-2020 End: 03-08-2024 take 3 capsules by mouth once daily Lactobacillus Combination No.4 (Probiotic) 3 billion cell Capsule Discontinued 3000 MMU CELLS PO Daily November 18, 2020 11:00pm March 08, 2024 12:34pm 100 ml levETIRAcetam 5 mg/ml injection (2 sources) Start: 07-08-2019 End: 07-16-2019 500 mg, Intravenous, EVERY 12 HOURS, First dose on 07/08/19 at 0800, Until Discontinued Start: 07-07-2019 End: 07-07-2019 1,000 mg, Intravenous, ONCE, 1 dose, 07/07/19 at 1900 1 ml LORazepam 2 mg/ml injection (2 sources) Benzodiazepine Start: 07-07-2019 End: 07-15-2019 1 mg, Intravenous, EVERY 5 MIN PRN, Seizures, Starting 07/07/19 at 1843 Start: 07-05-2019 End: 07-15-2019 2 mg, Intravenous, EVERY 4 H OURS PRN, Anxiety, Starting Jesica 07/05/19 at 1330 losartan potassium 25 mg oral tablet (19 sources) Angiotensin 2 Receptor Peyton Start: 11-19-2020 End: 03-08-2024 take 2 tablets by mouth once daily Losartan 25 mg tablet Discontinued 50 MG PO Daily November 18, 2020 11:00pm March 08, 2024 12:34pm Start: 03-18-2019 take 1 tablet by lorenzo th once daily losartan (COZAAR) 25 MG tablet Take 25 mg by mouth daily 03/18/2019 Active Start: 03-18-2019 Start: 03-18-2019 take 1 tablet by lorenzo th once daily losartan (COZAAR) 50 MG tablet Take 50 mg by mouth daily 1 03/18/2019 Active metFORMIN hydrochloride 1000 mg oral tablet (13 sources) Biguanide Start: 03-18-2019 End: 07-24-2019 metoprolol tartrate 25 mg oral tablet (8 sources) beta-Adrenergic Peyton Start: 07-14-2019 End: 07-14-2019 take 25 mg by mouth twice daily 25 mg, Oral, 2 TIMES DAILY, First dose (after last modification) on 07/14/19 at 0900 Start: 07-13-2019 End: 07-14-2019 take 12.5 mg by mouth twice daily 12.5 mg, Oral, 2 TIMES DAILY, First dose on Tue07/13/19 at 1245 Start: 07-07-2019 End: 07-14-2019 2.5 mg, Intravenous, EVERY 6 HOURS, First dose on 07/07/19 at 2045 Hold for SBP < 100 and/or HR < 60 bpm Start: 07-07-2019 End: 07-07-2019 Starting 07/07/19 at 1109 , For 1 dose Germania Andres: cabinet override Start: 07-03-2019 End: 07-03-2019 take 12.5 mg by mouth once daily 12.5 mg, Oral, ONCE, 07/03/19 at 1015, For 1 dose, Pre-op (day of surgery) Start: 07-03-2019 End: 07-07-2019 take 25 mg by mouth twice daily 25 mg, Oral, 2 TIMES D AILY, First dose on Tue07/04/19 at 0900 Hold for pulse < 70, SBP < 100, if patient on vasopressors, or if patient has a temporary pacemaker 2 ml midazolam 1 mg/ml injection (2 sources) Benzodiazepine Start: 07-15-2019 End: 07-15-2019 1 mg, Intravenous, ONCE, 07/15/19 at 1130, For 1 dose Start: 07-15-2019 End: 07-18-2019 2 mg, Intravenous, EVERY 4 H OURS PRN, Anxiety, Agitation, Starting 07/15/19 at 0945 100 ml milrinone lactate 0.2 mg/ml injection (2 sources) Phosphodiesterase 3 Inhibitor Start: 07-04-2019 End: 07-15-2019 0.375 mcg/kg/min 76.5 kg (8.6063 mL/hr, rounded to 8.6 mL/hr), Intravenous, at 8.6 mL/hr, CONTINUOUS, Starting Tue07/04/19 at 0800 Do not titrate without calling surgeon STAT - Unit Start: 07-04-2019 End: 07-04-2019 Starting Tue07/04/19 at 0741 , For 1 dose ISABEL GELLER: cabinet override mupirocin 0.02 mg/mg topical ointment (2 sources) RNA Synthetase Inhibitor Antibacterial Start: 07-03-2019 End: 07-08-2019 Nasal, 2 TIMES DAILY, First dose on Tue07/03/19 at 2100, For 10 doses 1 ml naloxone hydrochloride 0.4 mg/ml injection (1 source) Opioid Antagonist Start: 07-11-2019 End: 07-11-2019 Starting Tue07/11/19 at 0428, For 1 dose JANIS WALTERS: cabinet override 250 ml nitroglycerin 0.2 mg/ml injection (2 sources) Nitrate Vasodilator Start: 07-03-2019 End: 07-15-2019 5 mcg/min (1.5 mL/hr), Intravenous, at 1.5 mL/hr, CONTINUOUS, Starting Tue07/03/19 at 1830 Titrate to SBP less than 160 Dose Range: 10 to 200 mcg/min Max dose: 200 mcg/min Contact physician if max dose does not achieve desired response I f rate LESS than 20 mcg/min titrate by 5 mcg/min every 5 minutes to goal If rate GREATER than or equal to 20 mcg/min titrate by 10 mcg/min every 5 minutes to goal Use of nitroglycerin is not recommended if SBP less than 90 mmHg; notify physician if indicated Start: 06-06-2019 End: 06-06-2019 nitroGLYCERIN (NITROSTAT) SL tablet 0.4 mg potassium bicarbonate 20 meq effervescent oral tablet (1 source) Start: 07-07-2019 End: 07-07-2019 take 1 tablet by mouth once, then take 4-8 tablets by mouth 40 mEq, Oral, ONCE, 07/07/19 at 0945, For 1 dose Substituted for Potassium Chloride Oral Solution. Do not chew or crush. Dissolve flavored tablets completely in 4 to 8 ounces of cold water; unflavored tablets may be dissolved in 4 to 8 ounces of cold juice. Patient to sip slowly over a 5 to 10 minute period. May further dilute if GI adverse effects occur. Start: 07-07-2019 End: 07-07-2019 take 1 tablet by mouth once, then take 4-8 tablets by mouth 40 mEq, Oral, ONCE, 07/07/19 at 0945, For 1 dose Substituted for Potassium Chloride Oral Solution. Do not chew or crush. Dissolve flavored tablets completely in 4 to 8 ounces of cold water; unflavored tablets may be dissolved in 4 to 8 ounces of cold juice. Patient to sip slowly over a 5 to 10 minute period. May further dilute if GI adverse effects occur. potassium gluconate 2.5 meq oral tablet (2 sources) Start: 11-19-2020 End: 03-08-2024 take 2 tablets by mouth once daily in the morning, then take 1 tablet by mouth in the evening Potassium Gluconate 595 mg (99 mg) tablet Discontinued 595 MG PO Daily November 18, 2020 11:00pm March 08, 2024 12:34pm 2 tab in am and 1 tab in pm 100 ml propofol 10 mg/ml injection (3 sources) General Anesthetic Start: 07-11-2019 End: 07-15-2019 10 mcg/kg/min 82.8 kg (4.968 mL/hr, rounded to 5 mL/hr), Intravenous, at 5 mL/hr, TITRATED, Starting 07/11/19 at 0945 For sedation, titrate to RASS -1 to -2 Dose Range: 5 to 50 mcg/kg/min&nbsp ;Max dose: 50 mcg/kg/min Con tact physician if max dose does not achieve desired response &nbsp ;If RASS 1 point below goal - decrease rate by 5 mcg/kg/min no faster than every 5 min If RASS 2 points below goal - decrease rate by 10 mcg/kg/min no faster than every 5 min If RASS at goal, continue current rate If RASS 1 point above goal - increase rate by 5 mcg/kg/min no faster than every 5 min If RASS 2 or more points above goal - increase rate by 10 mcg/kg/min no faster than every 5 min If after titration rate change patient exhibits adverse hemodynamic response, next titration rate change may be adjusted by one-half of the previous rate change If patient fails sedation interruption, resume propofol titration at 50% of previous rate Do not administer through the same I.V. catheter with blood or plasma. Tubing and any unused portions of propofol vials should be discarded after 12 hours. Start: 07-03-2019 End: 07-04-2019 Starting Tue07/03/19 at 2146 , For 1 dose Alondra Osorio: homart override Do not administer through the same I.V. catheter with blood or plasma. Tubing and any unused portions of propofol vials should be discarded after 12 hours. Start: 07-03-2019 End: 07-10-2019 10 mcg/kg/min 65.4 kg (3.924 mL/hr, rounded to 3.9 mL/hr), Intravenous, at 3.9 mL/hr, TITRATED, Starting Tue07/03/19 at 1815 For sedation, titrate to RASS +1 to -1 Dose Range: 5 to 50 mcg/kg/min Max dose: 50 mcg/kg/min Contact physician if max dose does not achieve desired response If RASS 1 point below goal - decrease rate by 5 mcg/kg/min no faster than every 5 min If RASS 2 points below goal - decrease rate by 10 mcg/kg/min no faster than every 5 min If RASS at goal, continue current rate If RASS 1 point above goal - increase rate by 5 mcg/kg/min no faster than every 5 min If RASS 2 or more points above goal - increase rate by 10 mcg/kg/min no faster than every 5 min If after titration rate change patient exhibits adverse hemodynamic response, next titration rate change may be adjusted by one-half of the previous rate change If patient fails sedation interruption, resume propofol titration at 50% of previous rate Do not administer through the same I.V. catheter with blood or plasma. Tubing and any unused portions of propofol vials should be discarded after 12 hours. regadenoson (LEXISCAN) injection 0.4 mg (1 source) Start: 09-27-2023 End: 09-27-2023 regadenoson (LEXISCAN) injection 0.4 mg Sennosides (Senna) 8.6 mg Tablet (2 sources) Start: 11-19-2020 End: 03-08-2024 take 1 tablet by mouth once daily Sennosides (Senna) 8.6 mg Tablet Discontinued 8.6 MG PO Daily November 18, 2020 11:00pm March 08, 2024 12:34pm 10 ml sodium bicarbonate 84 mg/ml injection (5 sources) Start: 07-07-2019 End: 07-07-2019 50 mEq, Intravenous, ONCE, 07/07/19 at 0945, For 1 dose Start: 07-06-2019 End: 07-07-2019 25 mEq, Intravenous, ONCE, S at 07/07/19 at 0315, For 1 dose Start: 07-06-2019 End: 07-06-2019 Starting 07/06/19 at 1002 , For 1 dose Noftz, Rama: cabinet override Start: 07-03-2019 End: 07-04-2019 50 mEq, Intravenous, EVERY 3 0 MIN PRN, Other, For Base deficit greater than -5, Starting 07/03/19 at 1726, For 12 hours 5 ml sodium chloride 9 mg/ml injection (17 sources) Start: 09-27-2023 End: 09-27-2023 sodium chloride flush 0.9 % injection 5-40 mL Start: 09-01-2023 sodium chlorid e flush 0.9 % injection 5-40 mL Start: 09-01-2023 sodium chlorid e flush 0.9 % injection 5-40 mL Start: 09-01-2023 0.9 % sodium c hloride infusion Start: 09-01-2023 sodium chlorid e flush 0.9 % injection 5-40 mL Start: 07-13-2019 10 mL, Intrave nous, PRN, Line Care, Starting Tue07/13/19 at 1324 Flush each lumen of PICC. Start: 07-03-2019 End: 07-07-2019 Intravenous, at 75 mL/hr, CONTINUOUS, Starting Tue07/03/19 at 2345 Start: 07-03-2019 10 mL, Intrave nous, EVERY 12 HOURS SCHEDULED (2 times per day), First dose on Tue07/13/19 at 2100 Flush each lumen of PICC not connected to a continuous infusion. Start: 07-03-2019 take 10 mL intraveno us route once 10 mL, Intravenous, PRN, Line Care, Starting Tue07/03/19 at 1726 After every IV line use Start: 06-06-2019 End: 06-06-2019 250 mL, Intravenous, at 937. 5 mL/hr, As needed, IF patient heart rate is less than 50 BPM and Systolic BP is less than 90 mmHG, notify Licensed Psychologist, place patient in Trendelenberg, and give 0.9% NaCl bolus, Starting Tue06/06/19 at 1227, For 1 dose Start: 06-06-2019 End: 06-06-2019 sodium chloride 0.9% (NS) spironolactone 25 mg oral tablet (20 sources) Aldosterone Antagonist Start: 11-19-2020 End: 03-08-2024 take 1 tablet by mouth once daily Spironolactone 25 mg tablet Discontinued 25 MG PO Daily November 18, 2020 11:00pm March 08, 2024 12:34pm Start: 07-14-2019 take 50 mg by mouth twice daily 50 mg, Oral, 2 TIMES DAILY, First dose (after last modification) on Tue07/14/19 at 1800 Start: 03-18-2019 End: 07-14-2019 take 25 mg by mouth twice daily 25 mg, Oral, 2 TIMES DAILY, First dose (after last modification) on Tue07/13/19 at 1800 Start: 03-18-2019 End: 07-13-2019 take 25 mg by mouth once daily 25 mg, Oral, DAILY, Fir st dose on Tue07/12/19 at 1200 succinylcholine chloride 20 mg/ml injectable solution (1 source) Depolarizing Neuromuscular Peyton Start: 07-11-2019 End: 07-11-2019 Intravenous, DAILY PRN, Starting Tue07/11/19 at 0503 Suprep Bowel Prep Kit 17.5-3.13-1.6 GM/180ML (2 sources) Start: 11-28-2020 Suprep Bowel P rep Kit 17.5-3.13-1.6 GM/180ML 177 ML BOTTLE AT 4 PM AND ONE BOTTLE AT 11 PM DAY PRIOR TO PROCEDURE Orally Twice a day for 1 day(s) Nov, Not-Taking technetium sestamibi (CARDIOLITE) injection 10 millicurie (1 source) Start: 09-27-2023 End: 09-27-2023 technetium sestamibi (CARDIOLITE) injection 10 millicurie traZODone hydrochloride 50 mg oral tablet (20 sources) Serotonin Reuptake Inhibitor Start: 11-19-2020 End: 03-08-2024 Trazodone 50 mg tablet Discontinued 25 MG PO Daily at bedtime November 18, 2020 11:00pm March 08, 2024 12:34pm Start: 04-30-2019 End: 07-24-2019 take 0.5 tablet by m outh once daily traZODone (DESYREL) 150 mg tablet Take 150 mg by mouth nightly. Take 1/2 tablet. 0 Active traZODone HCl Ac tive Turmeric Root Extract 500 mg capsule (2 sources) Start: 03-08-2024 End: 03-08-2024 take 1 capsule by mouth twice daily Turmeric Root Extract 500 mg capsule Discontinued 500 MG PO Twice daily March 07, 2024 11:00pm March 08, 2024 12:46pm 200 ml vancomycin 5 mg/ml injection (1 source) Glycopeptide Antibacterial Start: 07-04-2019 End: 07-05-2019 1,000 mg (15.3 mg/kg), Intravenous, at 200 mL/hr, Administer over 60 Minutes, EVERY 12 HOURS, First dose on Tue07/04/19 at 0200, For 3 doses Post-ops vecuronium bromide 1 mg/ml injectable solution (2 sources) Nondepolarizing Neuromuscular Peyton Start: 07-11-2019 End: 07-11-2019 10 mg, Intravenous, ONCE, Tue07/11/19 at 0645, For 1 dose Start: 07-11-2019 End: 07-11-2019 Starting Tue07/11/19 at 0629 , For 1 dose Veronica Valente: homart override (2 sources) Start: 07-07-2019 End: 07-15-2019 25 mcg/hr (1.25 mL/hr, round ed to 1.3 mL/hr), Intravenous, at 1.3 mL/hr, CONTINUOUS, Starting 07/07/19 at 1130 Titrate to RASS +1 to -1 Dose Range: 25 to 200 mcg/hr Max dose: 200 mcg/hr Contact physician if max dose does not achieve desired response If RASS greater than goal: increase fentanyl infusion by 25mcg/hr no faster than every hour If RASS at goal: continue same rate If RASS below goal: decrease fentanyl infusion by 25mcg/hr no faster than every hour If patient fails sedation interruption, resume fentanyl titration at previous rate Start: 07-06-2019 End: 07-07-2019 25 mcg/hr (1.25 mL/hr, round ed to 1.3 mL/hr), Intravenous, at 1.3 mL/hr, CONTINUOUS, Starting 07/06/19 at 0730 (1 source) Start: 07-16-2019 End: 07-16-2019 take 15 mL intravenous route once as needed 15 mL, Intravenous, IMG ONCE PRN, Other, Starting 07/16/19 at 1752, For 1 dose (1 source) End: 07-24-2019 (1 source) Start: 07-12-2019 End: 07-14-2019 10 mg, Intravenous, EVERY 6 HOURS PRN, High Blood Pressure, Starting [facility] 07/12/19 at 1659 SBP > 160 STAT Problems Active Problems Problem Classification Problem Date Documented Date Episodic/Chronic Acute cerebrovascular disease (20 sources) Cerebral infarction; Translations: [Ischemic stroke] Onset: 0 Resolved: 5 07-07-2019 Chronic Anxiety disorders (20 sources) Mixed anxiety and depressive disorder; Translations: [Other specified anxiety disorders] Onset: 3 12-07-2022 Chronic Cardiac dysrhythmias (20 sources) Chronic atrial fibrillation; Translations: [Chronic atrial fibrillation, unspecified] Onset: 3 07-10-2019 Chronic Cardiac dysrhythmias (2 sources) Palpitations; Translations: [Palpitations] Onset: 4 Episodic Cataract (20 sources) Bilateral age-related nuclear cataracts; Translations: [Age-related nuclear cataract, bilateral] Onset: 8 10-25-2022 Chronic Chronic kidney disease (20 sources) Chronic kidney disease, stage 4 (severe); Translations: [Chronic kidney disease stage 4] Onset: 1 Resolved: 4 10-25-2022 Chronic Complications of surgical procedures or medical care (20 sources) Postsurgical menopause; Translations: [Asymptomatic postprocedural ovarian failure] Onset: 7 10-25-2022 Chronic Conduction disorders (20 sources) Long QT syndrome; Translations: [Long QT syndrome] Onset: 5 10-25-2022 Chronic Congestive heart failure; nonhypertensive (20 sources) Congestive heart failure; Translations: [Unspecified diastolic (congestive) heart failure] Onset: 3 07-01-2023 Chronic Coronary atherosclerosis and other heart disease (20 sources) Multi vessel coronary artery disease; Translations: [Atherosclerotic heart disease of [place] coronary artery without angina pectoris] Onset: 0 Resolved: 4 07-03-2019 Chronic Deficiency and other anemia (1 source) Anemia in chronic kidney disease; Translations: [Anemia in chronic kidney disease] Onset: 4 Chronic Delirium, dementia, and amnestic and other cognitive disorders (20 sources) Chronic organic mental disorder; Translations: [Unspecified mental disorder due to known physiological condition] Onset: 1 Resolved: 4 10-25-2022 Chronic Diabetes mellitus with complications (20 sources) Type 2 diabetes mellitus with hyperglycemia; Translations: [Type 2 diabetes mellitus with other circulatory complications] Onset: 3 Chronic Diabetes mellitus without complication (4 sources) Diabetes mellitus; Translations: [Type 2 diabetes mellitus without complications] Onset: 3 Chronic Disorders of lipid metabolism (20 sources) Hyperlipidemia; Translations: [Mixed hyperlipidemia] Onset: 2 Chronic Esophageal disorders (20 sources) Gastro-esophageal reflux disease without esophagitis; Translations: [Gastroesophageal reflux disease] Onset: 0 10-25-2022 Chronic Essential hypertension (20 sources) Hypertensive disorder; Translations: [Essential (primary) hypertension] Onset: 5 Chronic Fluid and electrolyte disorders (20 sources) Hyperkalemia; Translations: [Hypokalemia] Onset: 5 Episodic Heart valve disorders (20 sources) History of aortic valve replacement; Translations: [Aortic valve stenosis] Onset: 6 Chronic Hypertension with complications and secondary hypertension (20 sources) Hypertensive chronic kidney disease with stage 1 through stage 4 chronic kidney disease, or unspecified chronic kidney disease; Translations: [Ischemic nephropathy] Onset: 2 10-25-2022 Chronic Immunizations and screening for infectious disease (1 source) Contact with and (suspected) exposure to other viral communicable diseases Episodic Late effects of cerebrovascular disease (20 sources) Flaccid hemiplegia of left nondominant side; Translations: [Hemiplegia and hemiparesis following cerebral infarction affecting left non-dominant side] Onset: 0 Resolved: 4 10-25-2022 Chronic Malaise and fatigue (20 sources) Chronic fatigue syndrome; Translations: [Chronic fatigue syndrome] Onset: 0 10-25-2022 Chronic Menopausal disorders (1 source) Hormone replacement therapy; Translations: [HORMONE REPLACEMENT THERAPY] Onset: 3 Episodic Mood disorders (20 sources) Major depressive disorder, single episode, unspecified; Translations: [Recurrent major depressive episodes, moderate ] Onset: 2 10-25-2022 Chronic Nutritional deficiencies (20 sources) Vitamin D deficiency; Translations: [Vitamin D deficiency, unspecified] Onset: 9 Chronic Occlusion or stenosis of precerebral arteries (20 sources) Left carotid artery stenosis; Translations: [Occlusion and stenosis of left carotid artery] Onset: 3 10-25-2022 Chronic Osteoarthritis (20 sources) Osteoarthritis of left knee joint; Translations: [Unilateral primary osteoarthritis, left knee] Onset: 3 10-25-2022 Chronic Other aftercare (1 source) terminal make up operator (current) use of anticoagulants; Translations: [GROUP HOME CURRNT USE ANTICOAGULANTS] Onset: 3 Episodic Other aftercare (1 source) Other manager long term care (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; Translations: [OTH GROUP HOME CURRENT DRUG THERAPY] Onset: 3 Episodic Other aftercare (20 sources) Polypharmacy ; Translations: [Other manager long term care (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] Onset: 0 10-25-2022 Episodic Other and ill-defined cerebrovascular disease (1 source) Cerebrovascular disease, unspecified; Translations: [CEREBROVASCULAR DISEASE UNSPECIFIED] Onset: 3 Chronic Other and ill-defined heart disease (1 source) Other ill-defined heart diseases; Translations: [OTHER ILL-DEFINED HEART DISEASES] Onset: 2 Chronic Other and ill-defined heart disease (20 sources) Cardiomegaly; Translations: [Cardiomegaly] Onset: 8 10-25-2022 Chronic Other and ill-defined heart disease (20 sources) Left ventricular hypertrophy; Translations: [Cardiomegaly] Onset: 3 10-25-2022 Chronic Other connective tissue disease (2 sources) Recurrent falls ; Translations: [Repeated falls] 04-30-2024 Episodic Other diseases of kidney and ureters (15 sources) Secondary hyperparathyroidism; Translations: [Secondary hyperparathyroidism of renal origin] Onset: 4 03-08-2024 Chronic Other diseases of kidney and ureters (3 sources) Secondary hyperparathyroidism of renal origin; Translations: [Secondary hyperparathyroidism (of renal origin)] Onset: 4 03-08-2024 Chronic Other diseases of kidney and ureters (1 source) Renal impairment; Translations: [Kidney insufficiency] Episodic Other eye disorders (20 sources) Bilateral vitreous degeneration of eyes; Translations: [Vitreous degeneration, bilateral] Onset: 8 10-25-2022 Chronic Other eye disorders (7 sources) Vitreous degeneration, bilateral Chronic Other eye disorders (2 sources) Vitreous degeneration Chronic Other hereditary and degenerative nervous system conditions (20 sources) Sympathotonic orthostatic hypotension; Translations: [Multi-system degeneration of the autonomic nervous system] Onset: 3 10-25-2022 Chronic Other lower respiratory disease (3 sources) Dyspnea; Translations: [Shortness of breath] 09-27-2023 Episodic Other lower respiratory disease (1 source) Shortness of breath; Translations: [Shortness of breath] Onset: 4 Episodic Other nervous system disorders (16 sources) Disorder of brain; Translations: [Encephalopathy, unspecified] Onset: 0 07-09-2019 Chronic Other nervous system disorders (2 sources) Chronic pain; Translations: [Other chronic pain] Chronic Other nervous system disorders (1 source) Other chronic pain Onset: 2 Resolved: 2 Chronic Other nervous system disorders (15 sources) Aphasia; Translations: [Aphasia] Onset: 3 10-25-2022 Chronic Other nervous system disorders (20 sources) Encephalomalacia; Translations: [Other specified disorders of brain] Onset: 3 10-25-2022 Chronic Other nervous system disorders (1 source) Postoperative pain ; Translations: [Post-op pain] Episodic Other nutritional; endocrine; and metabolic disorders (1 source) Obesity, unspecified; Translations: [OBESITY UNSPECIFIED] Onset: 2 Chronic Other nutritional; endocrine; and metabolic disorders (1 source) Body mass index (BMI) 32.0-32.9, adult; Translations: [BODY MASS INDEX BMI 32.0-32.9 ADULT] Onset: 2 Chronic Other nutritional; endocrine; and metabolic disorders (20 sources) Hypomagnesemia; Translations: [Hypomagnesemia] Onset: 9 10-25-2022 Chronic Other upper respiratory disease (1 source) Other seasonal allergic rhinitis; Translations: [OTHER SEASONAL ALLERGIC RHINITIS] Onset: 2 Chronic Other upper respiratory disease (20 sources) Allergic rhinitis; Translations: [Allergic rhinitis, unspecified] Onset: 7 10-25-2022 Chronic Peripheral and visceral atherosclerosis (20 sources) Atherosclerosis of renal artery; Translations: [Atherosclerosis of renal artery] Onset: 0 10-25-2022 Chronic Pneumonia (except that caused by tuberculosis or sexually transmitted disease) (1 source) Pneumonia, unspecified organism Episodic Pulmonary heart disease (20 sources) Chronic cor pulmonale; Translations: [Cor pulmonale (chronic)] Onset: 8 10-25-2022 Chronic Residual codes; unclassified (20 sources) Idiopathic sleep related non-obstructive alveolar hypoventilation; Translations: [Idiopathic sleep related nonobstructive alveolar hypoventilation] Onset: 0 10-25-2022 Chronic Residual codes; unclassified (20 sources) Hypoxia; Translations: [Idiopathic sleep related nonobstructive alveolar hypoventilation] Onset: 3 10-25-2022 Chronic Residual codes; unclassified (17 sources) Restlessness and agitation; Translations: [Restlessness and agitation] Onset: 4 02-21-2024 Chronic Residual codes; unclassified (2 sources) Disorientated; Translations: [Disorientation, unspecified] 04-30-2024 Episodic Residual codes; unclassified (2 sources) Edema; Translations: [Edema, unspecified] 08-20-2024 Episodic Retinal detachments; defects; vascular occlusion; and retinopathy (20 sources) Nonexudative age-related macular degeneration; Translations: [Nonexudative age-related macular degeneration, bilateral, early dry stage] Onset: 8 10-25-2022 Chronic Substance-related disorders (3 sources) Continuous opioid dependence; Translations: [Opioid use, unspecified, uncomplicated] Onset: 2 Resolved: 2 Episodic Thyroid disorders (20 sources) Hypothyroidism, unspecified; Translations: [Acquired hypothyroidism] Onset: 0 10-25-2022 Chronic Unclassified (2 sources) Patient encounter status Unclassified (4 sources) Drug therapy finding; Translations: [Anticoagulated] 07-10-2019 Unclassified (3 sources) Chronic atrial fibrillation, unspecified; Translations: [CHRONIC ATRIAL FIBRILLATION UNSPEC] Onset: 0 Unclassified (1 source) CONTACT W/AND (SUSP) EXPOS COVID-19; Translations: [CONTACT W/AND (SUSP) EXPOS COVID-19] Onset: 2 Urinary tract infections (4 sources) Urinary tract infection, site not specified; Translations: [Acute cystitis] Onset: 2 04-30-2024 Episodic Viral infection (1 source) COVID-19; Translations: [COVID-19] Onset: 2 Past or Other Problems Problem Classification Problem Date Documented Date Episodic/Chronic Acute and unspecified renal failure (20 sources) Acute renal failure syndrome; Translations: [Acute kidney failure, unspecified] Onset: 3 Resolved: 3 12-01-2022 Episodic Bacterial infection; unspecified site (1 source) Unspecified Escherichia coli [E. coli] as the cause of diseases classified elsewhere; Translations: [UNS E COLI CAUSE DX CLASS ELSEWHERE] Onset: 2 Episodic Conditions associated with dizziness or vertigo (4 sources) Dizziness and giddiness; Translations: [DIZZINESS AND GIDDINESS] Onset: 2 Episodic Coronary atherosclerosis and other heart disease (1 source) Presence of aortocoronary bypass graft; Translations: [PRESENCE AORTOCORONARY BYPASS GRAFT] Onset: 2 Episodic Deficiency and other anemia (20 sources) Chronic anemia; Translations: [Anemia, unspecified] Onset: 3 10-25-2022 Episodic E Codes: Adverse effects of medical drugs (1 source) Adverse effect of mineralocorticoids and their antagonists, initial encounter; Translations: [ADVRS EFF MINERALOCORTIC ANTAG INIT] Onset: 2 Episodic E Codes: Fall (20 sources) Fall; Translations: [Unspecified fall, initial encounter] Onset: 0 Resolved: 3 12-01-2022 Episodic Epilepsy; convulsions (8 sources) Seizure; Translations: [Unspecified convulsions] Onset: 0 07-07-2019 Episodic Genitourinary symptoms and ill-defined conditions (20 sources) Microalbuminuria; Translations: [Proteinuria, unspecified] Onset: 5 10-25-2022 Episodic Heart valve disorders (20 sources) Systolic murmur; Translations: [Cardiac murmur, unspecified] Onset: 6 Episodic Malaise and fatigue (20 sources) Weakness; Translations: [Asthenia] Onset: 3 Episodic Mood disorders (20 sources) Mood disorders Onset: 4 Resolved: 4 06-07-2023 Other aftercare (20 sources) Drug therapy finding; Translations: [USP (current) use of anticoagulants] Onset: 0 07-10-2019 Episodic Other aftercare (1 source) 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; Translations: [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 OF ASPIRIN] Onset: 2 Episodic Other aftercare (1 source) USP (current) use of 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/antipla telets; Translations: [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 ANTITHROMBOT/ANTIPLATLE TS] Onset: 2 Episodic Other bone disease and musculoskeletal deformities (20 sources) Disorder of bone; Translations: [Other specified disorders of bone density and structure, right thigh] Onset: 2 10-25-2022 Episodic Other circulatory disease (1 source) Carotid bruit Episodic Other circulatory disease (1 source) Personal history of transient ischemic attack (TIA), and cerebral infarction without residual deficits; Translations: [PERS HX TIA AND CI NO RESID DEFICIT] Onset: 2 Episodic Other circulatory disease (1 source) Other hypotension; Translations: [OTHER HYPOTENSION] Onset: 2 Episodic Other circulatory disease (20 sources) History of cerebrovascular accident; Translations: [Personal history of transient ischemic attack (TIA), and cerebral infarction without residual deficits] Onset: 3 10-25-2022 Episodic Other circulatory disease (20 sources) Vascular disorder; Translations: [Other disorder of circulatory system] Onset: 5 10-25-2022 Episodic Other gastrointestinal disorders (20 sources) Slow transit constipation; Translations: [Slow transit constipation] Onset: 0 10-25-2022 Episodic Other hematologic conditions (20 sources) Abnormality of albumin; Translations: [Other nonspecific findings on examination of blood] Onset: 3 Resolved: 3 12-01-2022 Episodic Other injuries and conditions due to external causes (1 source) History of falling; Translations: [HISTORY OF FALLING] Onset: 2 Episodic Other injuries and conditions due to external causes (20 sources) History of fall; Translations: [History of falling] Onset: 3 10-20-2022 Episodic Other nervous system disorders (1 source) Anesthesia of skin; Translations: [ANESTHESIA OF SKIN] Onset: 2 Episodic Other nervous system disorders (20 sources) Ataxia; Translations: [Ataxia, unspecified] Onset: 3 10-20-2022 Episodic Other nervous system disorders (20 sources) Cognitive disorder; Translations: [Other symptoms and signs involving cognitive functions and awareness] Onset: 0 10-25-2022 Episodic Other non-epithelial cancer of skin (20 sources) History of malignant basal cell neoplasm of skin; Translations: [Personal history of other malignant neoplasm of skin] Onset: 1 10-25-2022 Episodic Other nutritional; endocrine; and metabolic disorders (20 sources) Body mass index 25-29 - overweight; Translations: [Overweight] Onset: 9 10-25-2022 Episodic Residual codes; unclassified (3 sources) Altered mental status, unspecified; Translations: [ALTERED MENTAL STATUS UNSPECIFIED] Onset: 2 Episodic Residual codes; unclassified (20 sources) Persistent insomnia; Translations: [Insomnia, unspecified] Onset: 3 10-25-2022 Episodic Residual codes; unclassified (1 source) Sleep disorder; Translations: [Sleep disorder, unspecified] Onset: 6 10-25-2022 Episodic Residual codes; unclassified (20 sources) Menopause present; Translations: [Asymptomatic menopausal state] Onset: 1 Resolved: 3 12-01-2022 Episodic Respiratory failure; insufficiency; arrest (adult) (20 sources) Acute respiratory failure; Translations: [Acute postprocedural respiratory failure] Onset: 0 Resolved: 4 07-18-2019 Episodic Spondylosis; intervertebral disc disorders; other back problems (20 sources) Spinal stenosis in cervical region; Translations: [Spinal stenosis, cervical region] Onset: 0 Resolved: 2 07-19-2019 Episodic Thyroid disorders (20 sources) Sick-euthyroid syndrome; Translations: [Sick-euthyroid syndrome] Onset: 5 10-25-2022 Episodic Unclassified (2 sources) Other low back pain; Translations: [Other low back pain] Unclassified (1 source) Other low back pain M54.59 Onset: 2 Resolved: 2 Unclassified (3 sources) Onset: 0 02-25-2020 Unclassified (1 source) diabetic eye exam (chief complaint) Onset: 5 Unclassified (2 sources) NPDR (chief complaint) Onset: 3 Resolved: 4 Unclassified (1 source) NPDR (chief complaint) stable vision (chief complaint) Onset: 1 Unclassified (1 source) Diabetic retinopathy (chief complaint) blurry vision (chief complaint) Onset: 0 Unclassified (1 source) Diabetic retinopathy (chief complaint) stable vision (chief complaint) Onset: 9 Unclassified (1 source) diabetic retinopathy (chief complaint) reports no visual changes (chief complaint) Onset: 7 Unclassified (1 source) no noticeable change in vision (chief complaint) diabetic retinopathy (chief complaint) Onset: 6 Unclassified (1 source) blurry vision (chief complaint) 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 1 mg/dL [facility] Chloride [Moles/Vol] 104 mmol/L 98 - 10 7 mmol/L [facility] CO2 [Moles/Vol] 33.6 mmol/L High 21.0 - 32.0 mmol/L [facility] Creatinine [Mass/Vol] 1.75 mg/dL High 0.55 - 1.02 mg/dL [facility] GFR/1.73 sq M.predicted CKD-EPI (S/P/Bld) [Vol rate/Area] 34 Low >=60 mL/min/1.73m 2 [facility] Glucose [Mass/Vol] 116 mg/dL High 74 - 106 mg/dL [facility] Interpretation and review of laboratory results Abnormal [facility] Potassium [Moles/Vol] 4 mmol/L 3.5 - 5.1 mmol/L [facility] Sodium [Moles/Vol] 142 mmol/L 136 - 145 mmol/L [facility] TBH EGFR-NON AF EQUATORIAL GUINEAN 28 Low >=60 mL/min/1.73m 2 [facility] Urea nitrogen [Mass/Vol] 23 mg/dL High 7.0 - 18.0 mg/dL [facility] Urea nitrogen/Creatinine [Mass ratio] 13.1 mg/mg [facility] HEMOGLOBIN A1con 05-25-2024 HEMOGLOBIN A1c 6.4 % of total Hgb High <5.7 [facility] Comment on above: Order Comment: FASTI NG:NO FASTING: NO Result Comment: For someone without known diabetes, a hemoglobin A1c value between 5.7% and 6.4% is consistent with prediabetes and should be confirmed with a follow-up test. For someone with known diabetes, a value <7% indicates that their diabetes is well controlled. A1c targets should be individualized based on duration of diabetes, age, comorbid conditions, and other considerations. This assay result is consistent with an increased risk of diabetes. Currently, no consensus exists regarding use of hemoglobin A1c for diagnosis of diabetes for children. Performed By: #### [id number] #### [facility] [address], [address] [place] [id number] Engineering Consultant: Stephan Kline MD ALL CBC WITH AUTO DIFFon BASOPHILS ABSOLUTE AUTO 0.1 [facility] Basophils/100 WBC (Bld) 1.3 % 0.2 - 2.0 % [facility] Eosinophils/100 WBC (Bld) 4.6 % 0.9 - 7.0 % [facility] Erythrocyte distribution width (RBC) [Ratio] 11.9 % 11.0 - 15.0 % [facility] Hematocrit (Bld) [Volume fraction] 33.6 % Low 36.0 - 48.0 % [facility] Hemoglobin (Bld) [Mass/Vol] 11.2 g/dL Low 12.0 - 16.0 g/dL [facility] IMMATURE GRANULOCYTES ABS AUTO 0.01 [facility] Immature granulocytes/100 WBC (Bld) 0.1 % 0.0 - 0.5 % [facility] Interpretation and review of laboratory results Abnormal [facility] LYMPHOCYTES ABSOLUTE AUTO 2.2 [facility] Lymphocytes/100 WBC (Bld) 31.2 % 20.5 - 60.0 % [facility] MCH (RBC) [Entitic mass] 30.4 pg 26.7 - 34.0 pg [facility] MCHC (RBC) [Mass/Vol] 33.3 g/dL 29.9 - 35.2 g/dL [facility] MCV (RBC) [Entitic vol] 91.3 fL 81.0 - 99.0 fL [facility] MONOCYTES ABSOLUTE AUTO 0.5 [facility] Monocytes/100 WBC (Bld) 7.6 % 1.7 - 12.0 % [facility] NEUTROPHILS ABSOLUTE AUTO 4 [facility] Neutrophils/100 WBC (Bld) 55.2 % 43.0 - 75.0 % [facility] Platelet mean volume (Bld) [Entitic vol] 8.7 fL Low 9.5 - 13.5 fL [facility] TBH EO # 0.3 [facility] TBH PLT 240 [facility] TB RBC 3.68 Low [facility] TB WBC 7.2 [facility] Albumin [Mass/volume] in Ser um or Plasma by Bromocresol green (BCG) dye binding methoOrdered By: Morgan Womack on 04-10-2024 Albumin BCG dye [Mass/Vol] Albumin [Mass/volume] in Serum or Plasma by Bromocresol green (BCG) dye binding metho 3.5-5.7 [facility] Appearance of UrineOrdered B y: Morgan Womack on 04-10-2024 Appearance (U) Urine appearance Clear [facility] Bacteria [Presence] in Urine by AutomatedOrdered By: Morgan Womack on 04-10-2024 Bacteria Auto Ql (U) Bacteria [Presence] in Urine by Automated High None Seen [facility] Bilirubin Test strip Ql (U)O rdered By: Morgan Womack on 04-10-2024 Bilirubin Ql (U) Bilirubin.total [Presence] in Urine by Test strip Negative [facility] Calcium [Mass/volume] in Ser um or PlasmaOrdered By: Morgan Womack on 04-10-2024 Calcium [Mass/Vol] Calcium [Mass/volume ] in Serum or Plasma 8.6-10.3 [facility] Carbon dioxide, total [Moles /volume] in Serum or PlasmaOrdered By: Morgan Womack on 04-10-2024 CO2 [Moles/Vol] Carbon dioxide, tota l [Moles/volume] in Serum or Plasma 21.0-31.0 [facility] Chloride [Moles/volume] in S chuck or PlasmaOrdered By: Morgan Womack on 04-10-2024 Chloride [Moles/Vol] Chloride [Moles/volume] in Serum or Plasma 98-107 [facility] Color Auto (U)Ordered By: Ab david Womack on 04-10-2024 Color (U) Color of Urine by Auto Yellow [facility] Creatinine [Mass/volume] in Serum or PlasmaOrdered By: Morgan Womack on 04-10-2024 Creatinine [Mass/Vol] Creatinine [Mass/volume] in Serum or Plasma High 0.60-1.20 [facility] Creatinine [Mass/volume] in UrineOrdered By: Morgan Womack on 04-10-2024 Creatinine (U) [Mass/Vol] Creatinine [Mass/volume] in Urine [facility] Comment on above: No reference range e stablished Dipstick and Microscopicon 1 06-10-2023 Appearance (U) Clear Normal Clear [facility] Comment on above: Order Comment: Name Collection Type:: Clean-Voided Midstream Performed By: #### P TH, CLAUDY, RENAL, FE and TIBC, CBCNO, [id number], MG, [id number], URIC #### [facility] [address] [place] [address] [place] #### KAPPA, SHORTY SERUM, SPE W INTERPRET #### [facility] , Bacteria,Urine 4+ High None Seen [facility] Comment on above: Order Comment: Name Collection Type:: Clean-Voided Midstream Performed By: #### P TH, CLAUDY, RENAL, FE and TIBC, CBCNO, [id number], MG, [id number], URIC #### [facility] [address] [place] [address] [place] #### KAPPA, SHORTY SERUM, SPE W INTERPRET #### [facility] , Bilirubin,Urine Negative Normal Negative [facility] Comment on above: Order Comment: Name Collection Type:: Clean-Voided Midstream Performed By: #### P TH, CLAUDY, RENAL, FE and TIBC, CBCNO, [id number], MG, [id number], URIC #### [address] #### KAPPA, SHORTY SERUM, SPE W INTERPRET #### [facility] , Color (U) Colorless Normal Yellow [facility] Comment on above: Order Comment: Name Collection Type:: Clean-Voided Midstream Performed By: #### P TH, CLAUDY, RENAL, FE and TIBC, CBCNO, [id number], MG, [id number], URIC #### [address] #### KAPPA, SHORTY SERUM, SPE W INTERPRET #### [facility] , Glucose Ql (U) Normal Normal Normal [facility] Comment on above: Order Comment: Name Collection Type:: Clean-Voided Midstream Performed By: #### P TH, CLAUDY, RENAL, FE and TIBC, CBCNO, [id number], MG, [id number], URIC #### [address] #### KAPPA, SHORTY SERUM, SPE W INTERPRET #### [facility] , Hyaline Casts,Urine 0 [LPF] Normal 0-8 [facility] Comment on above: Order Comment: Name Collection Type:: Clean-Voided Midstream Performed By: #### P TH, CLAUDY, RENAL, FE and TIBC, CBCNO, [id number], MG, [id number], URIC #### [address] #### KAPPA, SHORTY SERUM, SPE W INTERPRET #### [facility] , Ketones Ql (U) Negative Normal Negative [facility] Comment on above: Order Comment: Name Collection Type:: Clean-Voided Midstream Performed By: #### P TH, CLAUDY, RENAL, FE and TIBC, CBCNO, [id number], MG, [id number], URIC #### [address] #### KAPPA, SHORTY SERUM, SPE W INTERPRET #### [facility] , Leukocyte esterase Test strip Ql (U) 3+ High Negative [facility] Comment on above: Order Comment: Name Collection Type:: Clean-Voided Midstream Performed By: #### P TH, CLAUDY, RENAL, FE and TIBC, CBCNO, [id number], MG, [id number], URIC #### [address] #### KAPPA, SHORTY SERUM, SPE W INTERPRET #### [facility] , Mucus,Urine Rare Normal [facility] Comment on above: Order Comment: Name Collection Type:: Clean-Voided Midstream Result Comment: PERF ORMED BY: [place] [address] PATHOLOGIST BEHAVIORAL HEALTH CASE MANAGER CARON MUNOZ M.D. Performed By: #### P TH, CLAUDY, RENAL, FE and TIBC, CBCNO, [id number], MG, [id number], URIC #### [address] #### KAPPA, SHORTY SERUM, SPE W INTERPRET #### [facility] , Nitrite,Urine Negative Normal Negative [facility] Comment on above: Order Comment: Name Collection Type:: Clean-Voided Midstream Performed By: #### P TH, CLAUDY, RENAL, FE and TIBC, CBCNO, [id number], MG, [id number], URIC #### [address] #### KAPPA, SHORTY SERUM, SPE W INTERPRET #### [facility] , Occult Blood,Urine Negative Normal Negative [facility] Comment on above: Order Comment: Name Collection Type:: Clean-Voided Midstream Performed By: #### P TH, CLAUDY, RENAL, FE and TIBC, CBCNO, [id number], MG, [id number], URIC #### [address] #### KAPPA, SHORTY SERUM, SPE W INTERPRET #### [facility] , pH (U) 6.5 [pH] Normal 5.0-9.0 [facility] Comment on above: Order Comment: Name Collection Type:: Clean-Voided Midstream Performed By: #### P TH, CLAUDY, RENAL, FE and TIBC, CBCNO, [id number], MG, [id number], URIC #### [address] #### KAPPA, SHORTY SERUM, SPE W INTERPRET #### [facility] , Protein,Urine Negative Normal Negative [facility] Comment on above: Order Comment: Name Collection Type:: Clean-Voided Midstream Performed By: #### P TH, CLAUDY, RENAL, FE and TIBC, CBCNO, [id number], MG, [id number], URIC #### [address] #### KAPPA, SHORTY SERUM, SPE W INTERPRET #### [facility] , RBC,Urine 1 [HPF] Normal 0-4 [facility] Comment on above: Order Comment: Name Collection Type:: Clean-Voided Midstream Performed By: #### P TH, CLAUDY, RENAL, FE and TIBC, CBCNO, [id number], MG, [id number], URIC #### [address] #### KAPPA, SHORTY SERUM, SPE W INTERPRET #### [facility] , Specificy [place],Urine 1.005 Normal 1.001-1.030 [facility] Comment on above: Order Comment: Name Collection Type:: Clean-Voided Midstream Performed By: #### P TH, CLAUDY, RENAL, FE and TIBC, CBCNO, [id number], MG, [id number], URIC #### [place] [address] [place] #### KAPPA, SHORTY SERUM, SPE W INTERPRET #### [facility] , Squamous Epithelial Cell,Urine 1 [HPF] Normal 0-2 [facility] Comment on above: Order Comment: Name Collection Type:: Clean-Voided Midstream Performed By: #### P TH, CLAUDY, RENAL, FE and TIBC, CBCNO, [id number], MG, [id number], URIC #### [place] [address] [place] #### KAPPA, SHORTY SERUM, SPE W INTERPRET #### [facility] , Urobilinogen,Urine Normal Normal Normal [facility] Comment on above: Order Comment: Name Collection Type:: Clean-Voided Midstream Performed By: #### P TH, CLAUDY, RENAL, FE and TIBC, CBCNO, [id number], MG, [id number], URIC #### [place] [address] [place] #### KAPPA, SHORTY SERUM, SPE W INTERPRET #### [facility] , WBC,Urine 20 [HPF] High 0-4 [facility] Comment on above: Order Comment: Name Collection Type:: Clean-Voided Midstream Performed By: #### P TH, CLAUDY, RENAL, FE and TIBC, CBCNO, [id number], MG, [id number], URIC #### [place] [address] [place] #### KAPPA, SHORTY SERUM, SPE W INTERPRET #### [facility] , Epithelial cells.squamous [# /area] in Urine sediment by Automated countOrdered By: Morgan Womack on 04-10-2024 Epithelial cells.squamous Auto (Urine sed) [#/Area] Epithelial cells.squamous [#/area] in Urine sediment by Automated count 0-2 [facility] Erythrocyte distribution wid th Auto (RBC) [Ratio]Ordered By: Morgan Womack on 04-10-2024 Erythrocyte distribution width (RBC) [Ratio] Erythrocyte distribution width [Ratio] by Automated count 11.9-15.3 [facility] Erythrocytes [#/area] in Uri ne sediment by Automated countOrdered By: Morgan Womack on 04-10-2024 RBC Auto (Urine sed) [#/Area] Erythrocytes [#/area] in Urine sediment by Automated count 0-4 [facility] Ferritinon 04-10-2024 Ferritin [Mass/Vol] 23.3 ng/mL Normal 11.0-306.8 [facility] Comment on above: Performed By: #### P TH, CLAUDY, RENAL, FE and TIBC, CBCNO, [id number], MG, [id number], URIC #### [facility] [address] [place] [address] #### KAPPA, SHORTY SERUM, SPE W INTERPRET #### [facility] , Ferritin [Mass/volume] in Se rum or PlasmaOrdered By: Morgan Womack on 04-10-2024 Ferritin [Mass/Vol] Ferritin [Mass/volume] in Serum or Plasma 11.0-306.8 [facility] Folate [Mass/volume] in Seru m or PlasmaOrdered By: Moragn Womack on 04-10-2024 Folate [Mass/Vol] Folate [Mass/volume] in Serum or Plasma >5.9 [facility] Comment on above: Folate reference ran ge: >5.9 ng/mlThe WHO technical consultation on folate and vitamin [id number] has determined that folate concentrations lessthan 4 ng/ml are considered deficient. Free K+L LT Chains, Qn, Son 04-10-2024 Free [place] Light Chains, S 40.0 mg/L High 3.3-19.4 [facility] Comment on above: Performed By: #### P TH, CLAUDY, RENAL, FE and TIBC, CBCNO, [id number], MG, [id number], URIC #### [facility] [address] [place] [address] [place] #### KAPPA, SHORTY SERUM, SPE W INTERPRET #### [facility] , Free [place] Light Chains, S 24.4 mg/L Normal 5.7-26.3 [facility] Comment on above: Performed By: #### P TH, CLAUDY, RENAL, FE and TIBC, CBCNO, [id number], MG, [id number], URIC #### [facility] [address] [place] [address] #### KAPPA, SHORTY SERUM, SPE W INTERPRET #### [facility] , [place]/Lambda Ratio, S 1.64 Normal 0.26-1.65 [facility] Comment on above: Result Comment: Perf ormed at: - [facility] [address] [id number] Corrosion Control Specialist: Jerrell Bautista PhD, Phone: [phone] PERFORMED BY: [place] [address] PATHOLOGIST BEHAVIORAL HEALTH CASE MANAGER CARON MUNOZ M.D. Performed By: #### P TH, CLAUDY, RENAL, FE and TIBC, CBCNO, [id number], MG, [id number], URIC #### [facility] [address] [place] [address] #### KAPPA, SHORTY SERUM, SPE W INTERPRET #### [facility] , Glucose [Mass/volume] in Ser um or PlasmaOrdered By: Morgan Womack on 04-10-2024 Glucose [Mass/Vol] Glucose [Mass/volume ] in Serum or Plasma 70-100 [facility] Comment on above: ADA recommended refe rence rangeRandom Glucose Reference Range is dependent on time and content of last meal. Glucose of more than 200 mg/dL in a nonstressed, ambulatory subject supports the diagnosis of Diabetes Mellitus. Glucose [Mass/volume] in Uri ne by Test stripOrdered By: Morgan Womack on 04-10-2024 Glucose Test strip (U) [Mass/Vol] Glucose [Mass/volume] in Urine by Test strip Normal [facility] Hematocrit Auto (Bld) [Volum e fraction]Ordered By: Morgan Womack on 04-10-2024 Hematocrit (Bld) [Volume fraction] Hematocrit [Volume Fraction] of Blood by Automated count Low 34.0-46.4 [facility] Hemoglobin Test strip Ql (U) Ordered By: Morgan Womack on 04-10-2024 Hemoglobin Ql (U) Hemoglobin [Presence ] in Urine by Test strip Negative [facility] Hemoglobin [Mass/volume] in BloodOrdered By: Morgan Womack on 04-10-2024 Hemoglobin (Bld) [Mass/Vol] Hemoglobin [Mass/volume] in Blood Low 11.8-15.4 [facility] Hemogram CBC Without Diffon 04-10-2024 Erythrocyte distribution width (RBC) [Ratio] 12.7 % Normal 11.9-15.3 [facility] Comment on above: Performed By: #### P TH, CLAUDY, RENAL, FE and TIBC, CBCNO, [id number], MG, [id number], URIC #### [place] [address] [place] #### KAPPA, SHORTY SERUM, SPE W INTERPRET #### [facility] , Hematocrit (Bld) [Volume fraction] 31.9 % Low 34.0-46.4 [facility] Comment on above: Performed By: #### P TH, CLAUDY, RENAL, FE and TIBC, CBCNO, [id number], MG, [id number], URIC #### [place] [address] [place] #### KAPPA, SHORTY SERUM, SPE W INTERPRET #### [facility] , Hemoglobin (Bld) [Mass/Vol] 10.9 g/dL Low 11.8-15.4 [facility] Comment on above: Performed By: #### P TH, CLAUDY, RENAL, FE and TIBC, CBCNO, [id number], MG, [id number], URIC #### [place] [address] [place] #### KAPPA, SHORTY SERUM, SPE W INTERPRET #### [facility] , MCH (RBC) [Entitic mass] 30.3 pg Normal 24.7-34.3 [facility] Comment on above: Performed By: #### P TH, CLAUDY, RENAL, FE and TIBC, CBCNO, [id number], MG, [id number], URIC #### [address] #### KAPPA, SHORTY SERUM, SPE W INTERPRET #### [facility] , MCV (RBC) [Entitic vol] 88.7 fL Normal 80-100 [facility] Comment on above: Performed By: #### P TH, CLAUDY, RENAL, FE and TIBC, CBCNO, [id number], MG, [id number], URIC #### [address] #### KAPPA, SHORTY SERUM, SPE W INTERPRET #### [facility] , Mean Corpuscular HGB Conc 34.2 g/dL Normal 32.0-35.0 [facility] Comment on above: Performed By: #### P TH, CLAUDY, RENAL, FE and TIBC, CBCNO, [id number], MG, [id number], URIC #### [address] #### KAPPA, SHORTY SERUM, SPE W INTERPRET #### [facility] , Platelet mean volume (Bld) [Entitic vol] 7.6 fL Normal 6.3-10.[address] [facility] Comment on above: Result Comment: PERF ORMED BY: [place] [address] PATHOLOGIST BEHAVIORAL HEALTH CASE MANAGER CARON MUNOZ M.D. Performed By: #### P TH, CLAUDY, RENAL, FE and TIBC, CBCNO, [id number], MG, [id number], URIC #### [place] [address] [place] #### KAPPA, SHORTY SERUM, SPE W INTERPRET #### [facility] , Platelets (Bld) [#/Vol] 252 10*3/uL Normal 150-450 [facility] Comment on above: Performed By: #### P TH, CLAUDY, RENAL, FE and TIBC, CBCNO, [id number], MG, [id number], URIC #### [facility] [address] [place] [address] [place] #### KAPPA, SHORTY SERUM, SPE W INTERPRET #### [facility] , RBC (Bld) [#/Vol] 3.60 10*6/uL Normal 3.60-5.00 [facility] Comment on above: Performed By: #### P TH, CLAUDY, RENAL, FE and TIBC, CBCNO, [id number], MG, [id number], URIC #### [address] #### KAPPA, SHORTY SERUM, SPE W INTERPRET #### [facility] , WBC (Bld) [#/Vol] 8.0 10*3/uL Normal 3.8-11.6 [facility] Comment on above: Performed By: #### P TH, CLAUDY, RENAL, FE and TIBC, CBCNO, [id number], MG, [id number], URIC #### [address] #### KAPPA, SHORTY SERUM, SPE W INTERPRET #### [facility] , Hyaline casts [#/area] in Ur ine sediment by Automated countOrdered By: Morgan Womack on 04-10-2024 Hyaline casts Auto (Urine sed) [#/Area] Hyaline casts [#/area] in Urine sediment by Automated count 0-8 [facility] Immunofixation, (SHORTY), Urine on 04-10-2024 Immunofixation, (SHORTY), Urine Comment Normal . [facility] Comment on above: Result Comment: No m onoclonality detected. Performed at: - [facility] [id number] Corrosion Control Specialist: Jerrell Bautista PhD, Phone: [phone] PERFORMED BY: [place] [address] PATHOLOGIST BEHAVIORAL HEALTH CASE MANAGER CARON MUNOZ M.D. Performed By: #### P TH, CLAUDY, RENAL, FE and TIBC, CBCNO, [id number], MG, [id number], URIC #### [address] #### KAPPA, SHORTY SERUM, SPE W INTERPRET #### [facility] , Immunofixation,Serumon 04-10 Immunofixation, Serum Comment Normal . [facility] Comment on above: Result Comment: No m onoclonality detected. Performed By: #### P TH, CLAUDY, RENAL, FE and TIBC, CBCNO, [id number], MG, [id number], URIC #### [place] [address] [place] #### KAPPA, SHORTY SERUM, SPE W INTERPRET #### [facility] , Immunoglobulin A, Serum 221 mg/dL Normal 64-422 [facility] Comment on above: Performed By: #### P TH, CLAUDY, RENAL, FE and TIBC, CBCNO, [id number], MG, [id number], URIC #### [place] [address] [place] #### KAPPA, SHORTY SERUM, SPE W INTERPRET #### [facility] , Immunoglobulin G 989 mg/dL Normal 586-1602 [facility] Comment on above: Performed By: #### P TH, CLAUDY, RENAL, FE and TIBC, CBCNO, [id number], MG, [id number], URIC #### [place] [address] [place] #### KAPPA, SHORTY SERUM, SPE W INTERPRET #### [facility] , Immunoglobulin M, Serum 66 mg/dL Normal 26-217 [facility] Comment on above: Result Comment: Perf ormed at: CB - [facility] [address] [id number] Corrosion Control Specialist: Jerrell Bautista PhD, Phone: [phone] Performed By: #### P TH, CLAUDY, RENAL, FE and TIBC, CBCNO, [id number], MG, [id number], URIC #### [place] [address] [place] #### KAPPA, SHORTY SERUM, SPE W INTERPRET #### [facility] , Iron [Mass/volume] in Serum or PlasmaOrdered By: Morgan Womack on 04-10-2024 Iron [Mass/Vol] Iron [Mass/volume] i n Serum or Plasma 50-212 [facility] Iron and TIBC Profileon 03-23 % Iron Saturation 15.2 % Low 20-50 [facility] Comment on above: Performed By: #### P TH, CLAUDY, RENAL, FE and TIBC, CBCNO, [id number], MG, [id number], URIC #### [facility] [address] [place] [address] [place] #### KAPPA, SHORTY SERUM, SPE W INTERPRET #### [facility] , Iron [Mass/Vol] 61 ug/dL Normal 50-212 [facility] Comment on above: Performed By: #### P TH, CLAUDY, RENAL, FE and TIBC, CBCNO, [id number], MG, [id number], URIC #### [place] [address] [place] #### KAPPA, SHORTY SERUM, SPE W INTERPRET #### [facility] , Total Iron Binding Capacity 402 ug/dL Normal 255-450 [facility] Comment on above: Performed By: #### P TH, CLAUDY, RENAL, FE and TIBC, CBCNO, [id number], MG, [id number], URIC #### [place] [address] [place] #### KAPPA, SHORTY SERUM, SPE W INTERPRET #### [facility] , Transferrin [Mass/Vol] 287 mg/dL Normal 203-362 Th e [facility] Comment on above: Performed By: #### P TH, CLAUDY, RENAL, FE and TIBC, CBCNO, [id number], MG, [id number], URIC #### [facility] [address] #### KAPPA, SHORTY SERUM, SPE W INTERPRET #### [facility] , Ketones Test strip Ql (U)Ord ered By: Morgan Womack on 04-10-2024 Ketones Ql (U) Ketones [Presence] i n Urine by Test strip Negative [facility] Leukocyte esterase [Presence ] in Urine by Test stripOrdered By: Morgan Womack on 04-10-2024 Leukocyte esterase Test strip Ql (U) Leukocyte esterase [Presence] in Urine by Test strip High Negative [facility] Leukocytes [#/area] in Urine sediment by Automated countOrdered By: Morgan Womack on 04-10-2024 WBC Auto (Urine sed) [#/Area] Leukocytes [#/area] in Urine sediment by Automated count High 0-4 [facility] Leukocytes [#/volume] correc angely for nucleated erythrocytes in Blood by Automated counOrdered By: Morgan Womack on 04-10-2024 WBC corrected for nucl RBC Auto (Bld) [#/Vol] Leukocytes [#/volume] corrected for nucleated erythrocytes in Blood by Automated coun 3.8-11.6 [facility] MCH Auto (RBC) [Entitic mass ]Ordered By: Morgan Womack on 04-10-2024 MCH (RBC) [Entitic mass] MCH [Entitic mass] by Automated count 24.7-34.3 [facility] MCHC Auto (RBC) [Mass/Vol]Or dered By: Morgan Womack on 04-10-2024 MCHC (RBC) [Mass/Vol] MCHC [Mass/volume] by Automated count 32.0-35.0 [facility] MCV Auto (RBC) [Entitic vol] Ordered By: Morgan Womack on 04-10-2024 MCV (RBC) [Entitic vol] MCV [Entitic volume] by Automated count 80-100 [facility] Magnesiumon 04-10-2024 Magnesium [Mass/Vol] 2.3 mg/dL Normal 1.9-2.7 [facility] Comment on above: Performed By: #### P TH, CLAUDY, RENAL, FE and TIBC, CBCNO, [id number], MG, [id number], URIC #### [facility] [address] [place] [address] #### KAPPA, SHORTY SERUM, SPE W INTERPRET #### [facility] , Magnesium [Mass/volume] in S chuck or PlasmaOrdered By: Morgan Womack on 04-10-2024 Magnesium [Mass/Vol] Magnesium [Mass/volume] in Serum or Plasma 1.9-2.7 [facility] Mucus [Presence] in Urine by AutomatedOrdered By: Morgan Womack on 04-10-2024 Mucus Auto Ql (U) Mucus [Presence] in Urine by Automated [facility] Nitrite Test strip Ql (U)Ord ered By: Morgan Womack on 04-10-2024 Nitrite Ql (U) Nitrite [Presence] i n Urine by Test strip Negative [facility] No Panel InformationOrdered By: Morgan Womack on 04-10-2024 Estimated GFR (CKD-EPI) 36.116 mL/Min [facility] Creatinine Clearance (Chem N/A [facility] Protein Electrophoresis Interpret Comment . [facility] Comment on above: The SPE pattern appe ars unremarkable. Evidence ofmonoclonal protein is not apparent.Performed at: [facility] [id number] Director: Jerrell Bautista PhD, Phone: [phone] Protein Electrophoresis M-Jasson Not observed g/dL Not Observed [facility] Protein Electrophoresis Note Comment . [facility] Comment on above: Protein electrophore sis scan will follow via computer,mail, or client technical support associate delivery. Parathyrin.intact [Mass/volu me] in Serum or PlasmaOrdered By: Morgan Womack on 04-10-2024 Parathyrin.intact [Mass/Vol] Parathyrin.intact [Mass/volume] in Serum or Plasma [facility] Parathyroid Hormone Intacton 04-10-2024 Parathyroid Hormone Intact 50.5 pg/mL Normal [facility] Comment on above: Result Comment: PERF ORMED BY: [facility] [address] [place] [address] PATHOLOGIST BEHAVIORAL HEALTH CASE MANAGER CARON MUNOZ M.D. Performed By: #### P TH, CLAUDY, RENAL, FE and TIBC, CBCNO, [id number], MG, [id number], URIC #### [facility] [address] #### KAPPA, SHORTY SERUM, SPE W INTERPRET #### [facility] , Phosphate [Mass/volume] in S chuck or PlasmaOrdered By: Morgan Shanta on 04-10-2024 Phosphate [Mass/Vol] Phosphate [Mass/volume] in Serum or Plasma 2.5-4.5 [facility] Platelet mean volume Auto (B ld) [Entitic vol]Ordered By: Morgan Shanta on 04-10-2024 Platelet mean volume (Bld) [Entitic vol] Platelet mean volume [Entitic volume] in Blood by Automated count 6.3-10.7 [facility] Platelets Auto (Bld) [#/Vol] Ordered By: Morgan Shanta on 04-10-2024 Platelets (Bld) [#/Vol] Platelets [#/volume] in Blood by Automated count 150-450 [facility] Potassium [Moles/volume] in Serum or PlasmaOrdered By: Morgan Shanta on 04-10-2024 Potassium [Moles/Vol] Potassium [Moles/volume] in Serum or Plasma 3.5-5.1 [facility] Prot Electrophoresis w/Inter drew 04-10-2024 Albumin [Mass/Vol] 3.9 g/dL Normal 2.9-4.4 [facility] Comment on above: Performed By: #### P TH, CLAUDY, RENAL, FE and TIBC, CBCNO, [id number], MG, [id number], URIC #### [place] [address] [place] #### KAPPA, SHORTY SERUM, SPE W INTERPRET #### [facility] , Albumin/Globulin [Mass ratio] 1.3 {ratio} Normal 0.7-1.7 [facility] Comment on above: Performed By: #### P TH, CLAUDY, RENAL, FE and TIBC, CBCNO, [id number], MG, [id number], URIC #### [address] #### KAPPA, SHORTY SERUM, SPE W INTERPRET #### [facility] , Cbdui-9-Giaeeyuz 0.2 g/dL Normal 0.0-0.4 [facility] Comment on above: Performed By: #### P TH, CLAUDY, RENAL, FE and TIBC, CBCNO, [id number], MG, [id number], URIC #### [place] [address] [place] #### KAPPA, SHORTY SERUM, SPE W INTERPRET #### [facility] , Pjotw-4-Ffdfjghe 0.8 g/dL Normal 0.4-1.0 [facility] Comment on above: Performed By: #### P TH, CLAUDY, RENAL, FE and TIBC, CBCNO, [id number], MG, [id number], URIC #### [place] [address] [place] #### KAPPA, SHORTY SERUM, SPE W INTERPRET #### [facility] , Beta Globulin 1.0 g/dL Normal 0.7-1.3 [facility] Comment on above: Performed By: #### P TH, CLAUDY, RENAL, FE and TIBC, CBCNO, [id number], MG, [id number], URIC #### [place] [address] [place] #### KAPPA, SHORTY SERUM, SPE W INTERPRET #### [facility] , Gamma Globulin 1.0 g/dL Normal 0.4-1.8 [facility] Comment on above: Performed By: #### P TH, CLAUDY, RENAL, FE and TIBC, CBCNO, [id number], MG, [id number], URIC #### [address] #### KAPPA, SHORTY SERUM, SPE W INTERPRET #### [facility] , Globulin (S) [Mass/Vol] 2.9 g/dL Normal 2.2-3.9 [facility] Comment on above: Performed By: #### P TH, CLAUDY, RENAL, FE and TIBC, CBCNO, [id number], MG, [id number], URIC #### [address] #### KAPPA, SHORTY SERUM, SPE W INTERPRET #### [facility] , M-Jasson Not Observed Normal Not Observed [facility] Comment on above: Performed By: #### P TH, CLAUDY, RENAL, FE and TIBC, CBCNO, [id number], MG, [id number], URIC #### [place] [address] [place] #### KAPPA, SHORTY SERUM, SPE W INTERPRET #### [facility] , Protein [Mass/Vol] 6.8 g/dL Normal 6.0-8.5 [facility] Comment on above: Performed By: #### P TH, CLAUDY, RENAL, FE and TIBC, CBCNO, [id number], MG, [id number], URIC #### [place] [address] [place] #### KAPPA, SHORTY SERUM, SPE W INTERPRET #### [facility] , SPE-Interpretation Comment Normal . [facility] Comment on above: Result Comment: The SPE pattern appears unremarkable. Evidence of monoclonal protein is not apparent. Performed at: [facility] [id number] Corrosion Control Specialist: Jerrell Bautista PhD, Phone: [phone] Performed By: #### P TH, CLAUDY, RENAL, FE and TIBC, CBCNO, [id number], MG, [id number], URIC #### [address] #### KAPPA, SHORTY SERUM, SPE W INTERPRET #### [facility] , SPE-Note Comment Normal . [facility] Comment on above: Result Comment: Prot ein electrophoresis scan will follow via computer, mail, or client technical support associate delivery. Performed By: #### P TH, CLAUDY, RENAL, FE and TIBC, CBCNO, [id number], MG, [id number], URIC #### [address] #### KAPPA, SHORTY SERUM, SPE W INTERPRET #### [facility] , Protein Creat Ratio Ur Rando mon 04-10-2024 Creatinine, Urine (Random) 19.00 mg/dL Normal [facility] Comment on above: Result Comment: No r eference range established Performed By: #### P TH, CLAUDY, RENAL, FE and TIBC, CBCNO, [id number], MG, [id number], URIC #### [address] #### KAPPA, SHORTY SERUM, SPE W INTERPRET #### [facility] , Protein (U) [Mass/Vol] 5 mg/dL Normal 0-9 Th e [facility] Comment on above: Performed By: #### P TH, CLAUDY, RENAL, FE and TIBC, CBCNO, [id number], MG, [id number], URIC #### [place] [address] [place] #### KAPPA, SHORTY SERUM, SPE W INTERPRET #### [facility] , Urine Protein/Creatinine Ratio 263 mg/g{Cre} High 0-200 [facility] Comment on above: Result Comment: PERF ORMED BY: [place] [address] PATHOLOGIST BEHAVIORAL HEALTH CASE MANAGER CARON MUNOZ M.D. Performed By: #### P TH, CLAUDY, RENAL, FE and TIBC, CBCNO, [id number], MG, [id number], URIC #### [place] [address] [place] #### KAPPA, SHORTY SERUM, SPE W INTERPRET #### [facility] , Protein Test strip (U) [Mass /Vol]Ordered By: Morgan Womack on 04-10-2024 Protein (U) [Mass/Vol] Protein [Mass/vol ume] in Urine by Test strip Negative [facility] Protein [Mass/volume] in Uri neOrdered By: Morgan Shanta on 04-10-2024 Protein (U) [Mass/Vol] Protein [Mass/vol ume] in Urine 0-9 [facility] RBC Auto (Bld) [#/Vol]Ordere d By: Morgan Shanta on 04-10-2024 RBC (Bld) [#/Vol] Erythrocytes [#/volume] in Blood by Automated count 3.60-5.00 [facility] Renal Function Panelon 04-10 Albumin [Mass/Vol] 4.1 g/dL Normal 3.5-5.7 [facility] Comment on above: Performed By: #### P TH, CLAUDY, RENAL, FE and TIBC, CBCNO, [id number], MG, [id number], URIC #### [place] [address] [place] #### KAPPA, SHORTY SERUM, SPE W INTERPRET #### [facility] , Anion gap [Moles/Vol] 10.1 mmol/L Normal 6.0-15.0 Th e [facility] Comment on above: Performed By: #### P TH, CLAUDY, RENAL, FE and TIBC, CBCNO, [id number], MG, [id number], URIC #### [place] [address] [place] #### KAPPA, SHORTY SERUM, SPE W INTERPRET #### [facility] , Calcium [Mass/Vol] 9.6 mg/dL Normal 8.6-10.3 [facility] Comment on above: Performed By: #### P TH, CLAUDY, RENAL, FE and TIBC, CBCNO, [id number], MG, [id number], URIC #### [place] [address] [place] #### KAPPA, SHORTY SERUM, SPE W INTERPRET #### [facility] , Chloride [Moles/Vol] 104 mmol/L Normal 98-107 [facility] Comment on above: Performed By: #### P TH, CLAUDY, RENAL, FE and TIBC, CBCNO, [id number], MG, [id number], URIC #### [address] #### KAPPA, SHORTY SERUM, SPE W INTERPRET #### [facility] , CO2 [Moles/Vol] 30.6 mmol/L Normal 21.0-31.0 [facility] Comment on above: Performed By: #### P TH, CLAUDY, RENAL, FE and TIBC, CBCNO, [id number], MG, [id number], URIC #### [address] #### KAPPA, SHORTY SERUM, SPE W INTERPRET #### [facility] , Creatinine [Mass/Vol] 1.50 mg/dL High 0.60-1.20 [facility] Comment on above: Performed By: #### P TH, CLAUDY, RENAL, FE and TIBC, CBCNO, [id number], MG, [id number], URIC #### [place] [address] [place] #### KAPPA, SHORTY SERUM, SPE W INTERPRET #### [facility] , Estimated GFR 36.116 mL/Min Normal [facility] Comment on above: Performed By: #### P TH, CLAUDY, RENAL, FE and TIBC, CBCNO, [id number], MG, [id number], URIC #### [place] [address] [place] #### KAPPA, SHORTY SERUM, SPE W INTERPRET #### [facility] , Glucose [Mass/Vol] 99 mg/dL Normal 70-100 [facility] Comment on above: Result Comment: [facility] Glucose Reference Range is dependent on time and content of last meal. Glucose of more than 200 mg/dL in a nonstressed, ambulatory subject supports the diagnosis of Diabetes Mellitus. ADA recommended reference range Performed By: #### P TH, CLAUDY, RENAL, FE and TIBC, CBCNO, [id number], MG, [id number], URIC #### [place] [address] [place] #### KAPPA, SHORTY SERUM, SPE W INTERPRET #### [facility] , Phosphate [Mass/Vol] 4.3 mg/dL Normal 2.5-4.5 [facility] Comment on above: Performed By: #### P TH, CLAUDY, RENAL, FE and TIBC, CBCNO, [id number], MG, [id number], URIC #### [place] [address] [place] #### KAPPA, SHORTY SERUM, SPE W INTERPRET #### [facility] , Potassium [Moles/Vol] 4.7 mmol/L Normal 3.5-5.1 [facility] Comment on above: Performed By: #### P TH, CLAUDY, RENAL, FE and TIBC, CBCNO, [id number], MG, [id number], URIC #### [place] [address] [place] #### KAPPA, SHORTY SERUM, SPE W INTERPRET #### [facility] , Sodium [Moles/Vol] 140 mmol/L Normal 136-145 [facility] Comment on above: Performed By: #### P TH, CLAUDY, RENAL, FE and TIBC, CBCNO, [id number], MG, [id number], URIC #### [facility] [address] [place] [address] [place] #### KAPPA, SHORTY SERUM, SPE W INTERPRET #### [facility] , Urea nitrogen [Mass/Vol] 22 mg/dL Normal 7-25 [facility] Comment on above: Performed By: #### P TH, CLAUDY, RENAL, FE and TIBC, CBCNO, [id number], MG, [id number], URIC #### [facility] [address] [place] [address] [place] #### KAPPA, SHORTY SERUM, SPE W INTERPRET #### [facility] , Serum free kappa light chain measurementOrdered By: Morgan Womack on 04-10-2024 Immunoglobulin light chains.kappa.free (S) [Mass/Vol] Immunoglobulin light chains.kappa.free [Mass/volume] in Serum High 3.3-19.4 [facility] Serum globulin measurement ( mass/volume)Ordered By: Morgan Womack on 04-10-2024 Globulin (S) [Mass/Vol] Serum globulin measurement (mass/volume) 2.2-3.9 [facility] Serum immunoglobulin free ka ppa light chains/immunoglobulin free lambda light chainsOrdered By: Morgan Womack on 04-10-2024 Immunoglobulin light chains.kappa.free/Immu noglobulin light chains.lambda.free (S) [Mass ratio] Immunoglobulin light chains.kappa.free/Imm unoglobulin light chains.lambda.free [Mass 0.26-1.65 [facility] Comment on above: Performed at: - [facility] [id number] Director: Jerrell Bautista PhD, Phone: [phone] Serum or plasma albumin francisco urement (mass/volume)Ordered By: Morgan Womack on 04-10-2024 Albumin [Mass/Vol] Albumin [Mass/volume ] in Serum or Plasma 2.9-4.4 [facility] Serum or plasma albumin/glob ulin mass ratioOrdered By: Morgan Womack on 04-10-2024 Albumin/Globulin [Mass ratio] Serum or plasma albumin/globulin mass ratio 0.7-1.7 [facility] Serum or plasma alpha 1 glob ulin measurement by electrophoresis (mass/volume)Ordered By: Morgan Womack on 04-10-2024 Alpha 1 globulin Elph [Mass/Vol] Serum or plasma alpha 1 globulin measurement by electrophoresis (mass/volume) 0.0-0.4 [facility] Serum or plasma alpha 2 glob ulin measurement by electrophoresis (mass/volume)Ordered By: Morgan Womack on 04-10-2024 Alpha 2 globulin Elph [Mass/Vol] Serum or plasma alpha 2 globulin measurement by electrophoresis (mass/volume) 0.4-1.0 [facility] Serum or plasma anion gap de terminationOrdered By: Morgan Womack on 04-10-2024 Anion gap [Moles/Vol] Serum or plasma an ion gap determination 6.0-15.0 [facility] Serum or plasma beta globuli n measurement by electrophoresis (mass/volume)Ordered By: Morgan Womack on 04-10-2024 Beta globulin Elph [Mass/Vol] Serum or plasma beta globulin measurement by electrophoresis (mass/volume) 0.7-1.3 [facility] Serum or plasma gamma globul in measurement by electrophoresis (mass/volume)Ordered By: Morgan Womack on 04-10-2024 Gamma globulin Elph [Mass/Vol] Serum or plasma gamma globulin measurement by electrophoresis (mass/volume) 0.4-1.8 [facility] Serum or plasma immunoglobul in free lambda light chains measurement (mass/volume)Ordered By: Morgan Womack on 04-10-2024 Immunoglobulin light chains.lambda.free [Mass/Vol] Immunoglobulin light chains.lambda.free [Mass/volume] in Serum or Plasma 5.7-26.3 [facility] Serum or plasma iron binding capacity measurement (mass/volume)Ordered By: Morgan Womack on 04-10-2024 Iron binding capacity [Mass/Vol] Iron binding capacity [Mass/volume] in Serum or Plasma 255-450 [facility] Serum or plasma iron saturat ion measurement (mass fraction)Ordered By: Morgan Womack on 04-10-2024 Iron saturation [Mass fraction] Iron saturation [Mass Fraction] in Serum or Plasma Low 20-50 [facility] Serum total protein measurem entOrdered By: Morgan Womack on 04-10-2024 Protein [Mass/Vol] Protein [Mass/volume ] in Serum or Plasma 6.0-8.5 [facility] Sodium [Moles/volume] in Ser um or PlasmaOrdered By: Morgan Womack on 04-10-2024 Sodium [Moles/Vol] Sodium [Moles/volume ] in Serum or Plasma 136-145 [facility] Specific gravity Test strip (U) [Rel density]Ordered By: Morgan Womack on 04-10-2024 Specific gravity (U) [Rel density] Specific gravity of Urine by Test strip 1.001-1.030 [facility] Transferrin [Mass/volume] in Serum or PlasmaOrdered By: Morgan Womack on 04-10-2024 Transferrin [Mass/Vol] Transferrin [Mass/volume] in Serum or Plasma 203-362 [facility] US renal BIon 04-10-2024 US renal BI [facility] [place] [address] Ultrasound Report Signed Patient: Eleanor Mcclain MR#: [id number] : 1950 Acct:[id number] Age/Sex: 73 / F ADM Date: 04/10/24 Loc: Room: Type: [facility] Attending Dr: Morgan Womack MD Ordering Provider: Morgan Womack MD Date of Service: 04/10/24 US/US renal BI: N25.81 - Secondary hyperparathyroidism of renal origin Copies to: Morgan Womack MD BILATERAL RENAL AND BLADDER ULTRASOUND CLINICAL HISTORY: Stage IV chronic kidney disease. COMPARISON: None FINDINGS: Estimation of renal size is approximately 10.19 cm on the right and 8.62 cm on the left. No contour deforming mass, shadowing stone or hydronephrosis. The urinary bladder is partially distended with a volume of 119.52 ml. No shadowing stone or focal lesion. No significant postvoid residual. US/US renal BI IMPRESSION: No acute findings. Impression dictated by: Shant Pastrana Jr., DGinaOGina04/10/2024 3:04 PM Dictation Location: [place] [address] Tech: Susan Casper Transcribed By: CATA 04/10/24 1504 Dictated By: Shant Pastrana Jr, DO 04/10/24 1503 Signed By: 04/10/24 1504 Normal [facility] Urate [Mass/volume] in Serum or PlasmaOrdered By: Morgan Womack on 04-10-2024 Urate [Mass/Vol] Urate [Mass/volume] in Serum or Plasma 2.3-6.6 [facility] Urea nitrogen [Mass/volume] in Serum or PlasmaOrdered By: Morgan Womack on 04-10-2024 Urea nitrogen [Mass/Vol] Urea nitrogen [Mass/volume] in Serum or Plasma 12-14 [facility] Uric Acidon 04-10-2024 Urate [Mass/Vol] 4.8 mg/dL Normal 2.3-6.6 [facility] Comment on above: Performed By: #### P TH, CLAUDY, RENAL, FE and TIBC, CBCNO, [id number], MG, [id number], URIC #### [place] [address] [place] #### KAPPA, SHORTY SERUM, SPE W INTERPRET #### [facility] , Urine Cultureon 04-10-2024 Bacteria identified Cx Nom (U) ORGANISM: Escherichia coli (MDRO) (O:ESCCOLMDRO) [place] Count >100,000 Aerobic DEANNA Charge ([id number]) ---- SUSCEPTIBILITY --- ORGANISM: O:ESCCOLMDRO ANTIBIOTIC INTERPRETATION DEANNA Amikacin S <16 Amoxacillin/K Clavulanate S <8 Ampicillin R >16 Ampicillin/Sulbactam I 1616/8 Aztreonam S <4 Cefazolin S 4 Cefepime S <2 Ceftazidime S <1 Ceftazidime/Avibactam S <4 Ceftolozane/Tazobacta m S <2 Ceftriaxone S <1 Cefuroxime S <4 Ciprofloxacin S <0.25 Ertapenem S <0.5 Gentamicin R >8 Levofloxacin S <0.5 Meropenem S <1 Meropenem/Vaborbactam S <2 Nitrofurantoin S <32 Piperacillin/Tazobact am S <8 Tetracycline R >8 Tigecycline S <2 Tobramycin S 4 Trimethoprim/Sulfamet hoxazole R >2 S = SUSCEPTIBLE I = INTERMEDIATE R = RESISTANT BLANK = DATA NOT AVAILABLE, OR DRUG NOT ADVISABLE OR TESTED R* = RESISTANCE DUE TO EXTENDED SPECTRUM BETA-LACTAMASES ESBL = EXTENDED SPECTRUM BETA-LACTAMASE TFG = THYMIDINE-DEPENDENT STRAIN NICK = BETA-LACTAMASE POSITIVE IB = INDUCIBLE BETA-LACTAMASE. APPEARS IN PLACE OF 'S' WITH SPECIES KNOWN TO POSSESS INDUCIBLE BETA-LACTAMASES. POTENTIALLY THEY MAY BECOME RESISTANT TO ALL B-LACTAM DRUGS. PERFORMED BY: [place] [address] PATHOLOGIST BEHAVIORAL HEALTH CASE MANAGER CARON MUNOZ M.D. Normal [facility] Comment on above: Performed By: #### P TH, CLAUDY, RENAL, FE and TIBC, CBCNO, [id number], MG, [id number], URIC #### [place] [address] [place] #### KAPPA, SHORTY SERUM, SPE W INTERPRET #### [facility] , Urine protein/creatinine rat ioOrdered By: Morgan Womack on 04-10-2024 Protein/Creatinine (U) [Ratio] Urine protein/creatinine ratio High 0-200 [facility] Urobilinogen Test strip (U) [Mass/Vol]Ordered By: Morgan Womack on 04-10-2024 Urobilinogen (U) [Mass/Vol] Urobilinogen [Mass/volume] in Urine by Test strip Normal [facility] Vit. B12/Folate Profileon Cobalamin (Vitamin B12) [Mass/Vol] 186 pg/mL Normal 180-914 [facility] Comment on above: Performed By: #### P TH, CLAUDY, RENAL, FE and TIBC, CBCNO, [id number], MG, [id number], URIC #### [place] [address] [place] #### KAPPA, SHORTY SERUM, SPE W INTERPRET #### [facility] , Folate 13.5 ng/mL Normal >5.9 [facility] Comment on above: Result Comment: Grazyna te reference range: >5.9 ng/ml The WHO technical consultation on folate and vitamin b12 deficiencies has determined that folate concentrations less than 4 ng/ml are considered deficient. Performed By: #### P TH, CLAUDY, RENAL, FE and TIBC, CBCNO, [id number], MG, [id number], URIC #### [place] [address] [place] #### KAPPA, SHORTY SERUM, SPE W INTERPRET #### [facility] , Vitamin B12 ser/plasOrdered By: Morgan Womack on 04-10-2024 Cobalamin (Vitamin B12) [Mass/Vol] Vitamin B12 ser/plas 180-914 [facility] Vitamin D 25 Hydroxy Totalon 04-10-2024 Vitamin D 25 Hydroxy Total 97.6 ng/mL Normal 30-100 [facility] Comment on above: Result Comment: JOSEPHINE MIN D STATUS 25(OH)VITAMIN D RANGE (ng/mL) Deficient <20 Insufficient 20 to <30 Sufficient 30 to 100 Reference: Candace MF,Robert NC, Chastity RODARTE, et al. Evaluation,treatment, and prevention of vitamin D deficiency; an Endocrine Society clinical practice guideline. JCEM. 2010; 96(7):1911-30. PERFORMED BY: [address] [place] [address] PATHOLOGIST BEHAVIORAL HEALTH CASE MANAGER CARON MUNOZ M.D. Performed By: #### P TH, CLAUDY, RENAL, FE and TIBC, CBCNO, [id number], MG, [id number], URIC #### [place] [address] [place] #### KAPPA, SHORTY SERUM, SPE W INTERPRET #### [facility] , Vitamin D+Metabolites [Mass/ volume] in Serum or PlasmaOrdered By: Morgan Womack on 04-10-2024 Vitamin D+Metabolites [Mass/Vol] Vitamin D+Metabolites [Mass/volume] in Serum or Plasma 30-100 [facility] Comment on above: VITAMIN D STATUS 25( OH)VITAMIN D RANGE (ng/mL) Deficient <20 Insufficient 20 to <30Sufficient 30 to 100Reference: Candace MF,Robert MARTIN, Chastity RODARTE, et al. Evaluation,treatment, and prevention of vitamin D deficiency; an Endocrine Society clinical practice guideline. JCEM. 2010; 96(7):1911-30. pH Test strip (U)Ordered By: Morgan Womack on 04-10-2024 pH (U) pH of Urine by Test strip 5.0-9.0 [facility] Nuclear stress test with rojelio cardial perfusionon 09-28-2023 Nuc Stress EF 65 % BON Daeg[employer] Stress Target HR 146 bpm BON [employer] Image quality is good. Stress Test: A pharmacological stress test was performed using regadenoson (Lexiscan). The patient reported no symptoms during the stress test. The patient reached the end of the protocol. Perfusion Conclusion: There is no evidence of transient ischemic dilation (TID). Stress Function: Left ventricular function post-stress is normal. Post-stress ejection fraction is 65%. The stress end diastolic cavity size is normal. Perfusion Defect: There is a mild severity left ventricular stress perfusion defect that is small in size present in the inferior segment(s) that is predominantly fixed. This defect was visualized during the stress and rest phases of imaging. The defect appears to be probable artifact caused by subdiaphragmatic activity. There is a mild severity left ventricular stress perfusion defect present in the inferolateral segment(s) that is partially reversible. This defect was visualized during the stress phase of imaging. The defect appears to be probable ischemia. The possibility of artifact cannot be excluded. Overall, these cardiac imaging results are most consistent with a low risk for significant coronary artery disease. Depending on the patient symptoms and level of clinical suspicion, aggressive medical management vs. additional testing by coronary angiography may be indicated. Stress Findings A pharmacological stress test was performed using regadenoson (Lexiscan). The patient reported no symptoms during the stress test. The patient reached the end of the protocol. Nuclear Study Quality Nuclear Cardiac SPECT rest then gated stress with tomographic imaging/tomography utilized for the myocardial perfusion procedure. Lexiscan was used as the stressing method and agent. (Lexiscan given via a 10 - 20 sec injection). One day myocardial perfusion study (09/27/2023). This Single Photon Emission Computer Tomography (SPECT) study utilized tomographic imaging/tomography for the tomographic myocardial perfusion imaging performed during this study. Overall image quality is good. Diaphragmatic attenuation artifact noted. Perfusion Comments Prone images were obtained. Prone imaging was helpful in correcting soft tissue attenuation. Perfusion Defect There is a mild severity left ventricular stress perfusion defect that is small in size present in the inferior segment(s) that is predominantly fixed. This defect was visualized during the stress and rest phases of imaging. The defect appears to be probable artifact caused by subdiaphragmatic activity. There is a mild severity left ventricular stress perfusion defect present in the inferolateral segment(s) that is partially reversible. This defect was visualized during the stress phase of imaging. The defect appears to be probable ischemia. The possibility of artifact cannot be excluded. Perfusion Defect Conclusion There is no evidence of transient ischemic dilation (TID). Stress Function Comments Left ventricular function post-stress is normal. Post-stress ejection fraction is 65%. The stress end diastolic cavity size is normal. BS CV RPACS STRESS [facility] Nuclear stress test with rojelio cardial perfusionon 09-27-2023 Radiology Study observation (narrative) [facility] Glucose, Whole Bloodon 08-31 Glucose [Mass/Vol] 104 mg/dL High 74-100 [facility] CULTURE URINEon 07-27-2022 CULTURE URINE Isolate 1 Proteus mirabilis >100,000 cfu/mL of ORGANISM 1 Proteus mirabilis ANTIBIOTIC M.I.C RX STATUS Ampicillin <=2 S F Ampicillin/Sulbactam <=2 S F Piperacillin/Tazobact am <=4 S F Cefazolin <=4 S F Ceftazidime <=1 S F Ceftriaxone <=1 S F Ertapenem <=0.5 S F Imipenem 2 S F Amikacin <=2 S F Gentamicin <=1 S F Tobramycin <=1 S F Ciprofloxacin <=0.25 S F Levofloxacin <=0.12 S F Nitrofurantoin 128 R F Trimethoprim/Sulfamet hoxazole <=20 S F Normal [facility] Comment on above: Performed By: #### U RCX ####[facility] [address] [place] [address]Dr. Davidson Saunders CBC AUTO DIFFon 07-25-2022 BASO # 0.1 103/ul Normal 0.0-0.1 [facility] Comment on above: Performed By: #### P OCGLUC #### [facility] [address] [place] [address] [address] Davidson Saunders Basophils/100 WBC (Bld) 0.5 % Normal 0.2-2.0 [facility] Comment on above: Performed By: #### P OCGLUC #### [facility] [address] [place] [address] [address] Davidson Saunders EO # 0.2 103/ul Normal 0.0-0.7 [facility] Comment on above: Performed By: #### P OCGLUC #### [facility] [address] [place] [address] [address] Davidson Saunders Eosinophils/100 WBC (Bld) 1.6 % Normal 0.9-7.0 [facility] Comment on above: Performed By: #### P OCGLUC #### [facility] [address] [place] [address] [address] Davidson Saunders Erythrocyte distribution width (RBC) [Ratio] 12.7 % Normal 11.0-15.0 [facility] Comment on above: Performed By: #### P OCGLUC #### [facility] [address] [place] [address] [address] Davidson Saunders Hematocrit (Bld) [Volume fraction] 38.7 % Normal 36.0-48.0 [facility] Comment on above: Performed By: #### P OCGLUC #### [facility] [address] [place] [address] [address] Davidson Saunders Hemoglobin (Bld) [Mass/Vol] 13.2 g/dL Normal 12.0-16.0 [facility] Comment on above: Performed By: #### P OCGLUC #### [facility] [address] [place] [address] [address] Davidson Saunders IG # 0.17 10e3/ul Critically high 0.00-0.03 [facility] Comment on above: Performed By: #### P OCGLUC #### [facility] [address] [place] [address] [address] Davidson Saunders IG % 1.1 % Critically high 0.0-0.5 [facility] Comment on above: Performed By: #### P OCGLUC #### [facility] [address] [place] [address] [address] Davidson Saunders LYMPH # 3.5 103/ul Normal 1.2-3.8 [facility] Comment on above: Performed By: #### P OCGLUC #### [facility] [address] [place] [address] Dr. Davidson Saunders Lymphocytes/100 WBC (Bld) 23.7 % Normal 20.5-60.0 [facility] Comment on above: Performed By: #### P OCGLUC #### [facility] [address] [place] [address] Dr. Davidson Saunders MANUAL DIFF REQ NO Normal [facility] Comment on above: Performed By: #### P OCGLUC #### [facility] [address] [place] [address] Dr. Davidson Saunders MCH (RBC) [Entitic mass] 28.0 pg Normal 26.7-34.0 [facility] Comment on above: Performed By: #### P OCGLUC #### [facility] [address] [place] [address] Dr. Davidson Saunders MCHC (RBC) [Mass/Vol] 34.1 g/dL Normal 29.9-35.2 [facility] Comment on above: Performed By: #### P OCGLUC #### [facility] [address] [place] [address] Dr. Davidson Saunders MCV (RBC) [Entitic vol] 82.2 fL Normal 81.0-99.0 [facility] Comment on above: Performed By: #### P OCGLUC #### [facility] [address] [place] [address] [address] Davidson Saunders MONO # 1.1 103/ul Critically high 0.3-0.8 [facility] Comment on above: Performed By: #### P OCGLUC #### [facility] [address] [place] [address] [address] Davidson Saunders Monocytes/100 WBC (Bld) 7.1 % Normal 1.7-12.0 [facility] Comment on above: Performed By: #### P OCGLUC #### [facility] [address] [place] [address] [address] Davidson Saunders NEUT # 9.8 103/ul Critically high 1.4-6.5 [facility] Comment on above: Performed By: #### P OCGLUC #### [facility] [address] [place] [address] Dr. Davidson Saunders Neutrophils/100 WBC (Bld) 66.0 % Normal 43.0-75.0 [facility] Comment on above: Performed By: #### P OCGLUC #### [facility] [address] [place] [address] [address] Davidson Saunders Platelet mean volume (Bld) [Entitic vol] 9.0 fL Critically low 9.5-13.5 [facility] Comment on above: Performed By: #### P OCGLUC #### [facility] [address] [place] [address] [address] Davidson Saunders PLT 201 103/ul Normal 150-450 [facility] Comment on above: Performed By: #### P OCGLUC #### [facility] [address] [place] [address] [address] Davidson Saunders RBC 4.71 106/ul Normal 4.20-5.40 [facility] Comment on above: Performed By: #### P OCGLUC #### [facility] [address] [place] [address] [address] Davidson Saunders WBC 14.9 103/ul Critically high 4.0-11.0 [facility] Comment on above: Performed By: #### P OCGLUC #### [facility] [address] [place] [address] [address] Davidson Saunders ER URINE PROFILEon 3 Bilirubin Ql (U) Negative Normal NEGATIVE [facility] Comment on above: Performed By: #### TAVO ALVARES ####[facility] [address] [place] [address]Dr. Davidson Saunders Clarity (U) CLOUDY Abnormal CLEAR [facility] Comment on above: Performed By: #### TAVO ALVARES ####[facility] [address] [place] [address]Dr. Davidson Saunders Color (U) DK. YELLOW Normal YELLOW [facility] Comment on above: Performed By: #### TAVO ALVARES ####[facility] [address] [place] [address]Dr. Davidson LAURENT A micrscopic examination will be performed if indicated. Normal [facility] Comment on above: Performed By: #### TAVO ALVARES ####[facility] [address] [place] [address]Dr. Davidson Saunders Glucose Ql (U) Negative Normal NEGATIVE [facility] Comment on above: Performed By: #### TAVO ALVARES ####[facility] [address] [place] [address]Dr. Davidson Saunders Hemoglobin Ql (U) Negative Normal NEGATIVE [facility] [place] Comment on above: Performed By: #### CHARO ALVARESRO ####[facility] [address] [place] [address]Dr. Davidson Saunders Ketones Ql (U) Negative Normal NEGATIVE [facility] Comment on above: Performed By: #### TAVO LAVARES ####[facility] [address] [place] [address]Dr. Davidson Saunders LEUKOCYTES LARGE Abnormal NEGATIVE [facility] Comment on above: Performed By: #### TAVO ALVARES ####[facility] [address] [place] [address]Dr. Davidson Saunders Nitrite Ql (U) Positive Abnormal NEGATIVE [facility] Comment on above: Performed By: #### CHARO ALVARESRO ####[facility] [address] [place] [address]Dr. Davidson Saunders pH (U) [pH] Abnormal 5-9 [facility] Comment on above: Performed By: #### CHARO ALVARESRO ####[facility] [address] [place] [address]Dr. Dvaidson Saunders Protein (U) [Mass/Vol] 100 mg/dL Abnormal NEGAT JUNITO/ TRACE [facility] Comment on above: Performed By: #### CHARO ALVARESRO ####[facility] [address] [place], [place] [address]Dr. Davidson Saunders SPEC GRAVITY 1.010 Normal 1.005-<=1.025 [facility] Comment on above: Performed By: #### CHARO ALVARESRO ####[facility] [address] [place], [place] [address]Dr. Davidson Saunders UR MICRO IND INDICATED Normal [facility] Comment on above: Performed By: #### CHARO ALVARESRO ####[facility] [address] [place], [place] [address]Dr. Davidson Saunders Urobilinogen Qn (U) 1.0 {Balaji'U}/dL Normal 0.2 - 1. 0 [facility] Comment on above: Performed By: #### CHARO ALVARESRO ####[facility] [address] [place], [place] [address]Dr. Davidson Saunders PROF CHEM 8 (BAS METB)on Anion gap [Moles/Vol] 13.6 mmol/L Normal [facility] Comment on above: Performed By: #### Keely SANDY HSTROPN ####[facility] [address] [place], [place] [address]Dr. Davidson Saunders Calcium [Mass/Vol] 9.6 mg/dL Normal 8.5-10.1 [facility] Comment on above: Performed By: #### Keely SANDY HSTROPN ####[facility] [address] [place] [address]Dr. Davidson Saunders Chloride [Moles/Vol] 100 mmol/L Normal 98-107 [facility] Comment on above: Performed By: #### B MP, HSTROPN ####[facility] [address] [place] [address]Dr. Davidson Saunders CO2 [Moles/Vol] 28.1 mmol/L Normal 21.0-32.0 [facility] Comment on above: Performed By: #### B MP, HSTROPN ####[facility] [address] [place] [address]Dr. Davidson Saunders Creatinine [Mass/Vol] 1.94 mg/dL Critically high 0.55-1.02 [facility] Comment on above: Performed By: #### B MP, HSTROPN ####[facility] [address] [place], [place] [address]Dr. Davidson Chip EGFR-AF EQUATORIAL GUINEAN 31 mL/min/1.73m2 Critically low >=60 [facility] Comment on above: Performed By: #### B MP, HSTROPN ####[facility] [address] [place], [place] [address]Dr. Davidson Saunedrs EGFR-NON AF EQUATORIAL GUINEAN 25 mL/min/1.73m2 Critically low >=60 [facility] Comment on above: Performed By: #### B MP, HSTROPN ####[facility] [address] [place] [address]Dr. Davidson Saunders Glucose [Mass/Vol] 165 mg/dL Critically high 74-106 [facility] Comment on above: Performed By: #### B MP, HSTROPN ####[facility] [address] [place], [place] [address]Dr. Meicharlotte Saunders Potassium [Moles/Vol] 3.7 mmol/L Normal 3.5-5.1 [facility] Comment on above: Performed By: #### B MP, HSTROPN ####[facility] [address] [place], [place] [address]Dr. Davidson Saunders Sodium [Moles/Vol] 138 mmol/L Normal 136-145 [facility] Comment on above: Performed By: #### B DU HSTROPN ####[facility] [address] [place] [address]Dr. Davidson Saunders Urea nitrogen [Mass/Vol] 41.0 mg/dL Critically high 7.0-18.0 [facility] Comment on above: Performed By: #### Keely SANDY HSTROPN ####[facility] [address] [place] [address]Dr. Davidson Chip Urea nitrogen/Creatinine [Mass ratio] 21.1 mg/mg Normal [facility] Comment on above: Performed By: #### Keely SANDY HSTROPN ####[facility] [address] [place], [place] [address]Dr. Davidson Saunders TROPONIN, HIGH SENSITIVITYon 07-25-2022 HSTROP 32.9 pg/mL Normal 4.0-51.3 [facility] Comment on above: Result Comment: CUT- OFF POINTS HAVE BEEN ESTABLISHED BASED ON THE FOURTH UNIVERSAL DEFINITIONS OF MYOCARDIAL INFARCTION. THE UPPER REFERENCE LIMIT (URL) OF TROPONIN, DEFINED THE 99TH PERCENTILE OF cTnI DISTRIBUTION IN A REFERENCE POPULATION, HAS BEEN CONFIRMED THE DECISION THRESHOLD FOR TX DIAGNOSIS. Performed By: #### Keely SANDY HSTROPN ####[facility] [address] [place], [place] [address]Dr. Davidson Chip URINE MICROSCOPIC ONLYon BACTERIA MODERATE Abnormal NONE SEEN [facility] Comment on above: Performed By: #### TAVO ALVARES ####[facility] [address] [place], [place] [address]Dr. Davidson Saunders Bacteria identified Cx Nom (U) INDICATED Normal [facility] Comment on above: Performed By: #### CHARO ALVARESRO ####[facility] [address] [place], [place] [address]Dr. Davidson Saunders CAST NONE SEEN Normal NONE SEEN [facility] Comment on above: Performed By: #### TAVO ALVARES ####[facility] [address] [place], [place] [address]Dr. Davidson Saunders Crystals LM Nom (Urine sed) SEEN Abnormal NONE SEEN [facility] Comment on above: Performed By: #### CHARO ALVARESRO ####[facility] [address] [place] [address]Dr. Davidson Saunders Epithelial cells LM Ql (Urine sed) FEW Abnormal NONE SEEN /RARE [facility] Comment on above: Performed By: #### Zbigniew BANUELOS UMICRO ####[facility] [address] [place] [address]Dr. Davidson Saunders MUCOUS NONE SEEN Normal NONE SEEN [facility] Comment on above: Performed By: #### CHARO ALVARESRO ####[facility] [address] [place] [address]Dr. Davidson Saunders RBC NONE SEEN Abnormal 0-2 [facility] Comment on above: Performed By: #### CHARO ALVARESRO ####[facility] [address] [place] [address]Dr. Davidson Saunders WBC 10-20 Abnormal NONE SEEN [facility] Comment on above: Performed By: #### Zbigniew BANUELOS UMJAYNERO ####[facility] [address] [place] [address]Dr. Davidson Saunders XR CHEST 1 Von 07-25-2022 XR CHEST 1 V XR CHEST 1 V CLINICAL: Asthenia COMPARISON: 12/29/2021 TECHNIQUE: Single AP view of the chest. FINDINGS: Heart size is within normal limits. Surgical clips are present in the left perihilar region. Left hemidiaphragm is mildly elevated, as previously. No airspace consolidation or large effusion is seen. Linear density left parahilar region similar to prior and likely atelectasis or scarring, less likely infiltrate. No discernible pneumothorax. Osseous structures appear grossly intact. IMPRESSION: No acute cardiac or pulmonary findings. Stable mild elevation of the left hemidiaphragm. Subtle linear interstitial densities left parahilar region, similar to prior study 12/29/2021, likely atelectasis or scarring, less likely infectious infiltrate. Electronically authenticated by: ABHI CANTU Date: 2022-07-25 11:13 Normal [facility] COVID + FLU Quick Testingon 07-17-2022 SARS-CoV-2 (COVID-19) RNA SAE+probe Ql (Unsp spec) Negative Tag'By Other COVID + FLU Quick Testing Negative Tag'By Other CULTURE URINEon 01-01-2022 CULTURE URINE Isolate 1 Escherichia coli >100,000 cfu/mL of ORGANISM 1 Escherichia coli ANTIBIOTIC M.I.C RX STATUS Ampicillin 4 S F Ampicillin/Sulbactam <=2 S F Piperacillin/Tazobact am <=4 S F Cefazolin <=4 S F Ceftazidime <=1 S F Ceftriaxone <=1 S F Ertapenem <=0.5 S F Imipenem <=0.25 S F Amikacin <=2 S F Gentamicin <=1 S F Tobramycin <=1 S F Ciprofloxacin <=0.25 S F Levofloxacin <=0.12 S F Nitrofurantoin <=16 S F Trimethoprim/Sulfamet hoxazole <=20 S F Normal [facility] Comment on above: Performed By: #### U RCX ####[facility] [address] [place] [address]Dr. Davidson Saunders CBC AUTO DIFFon 12-31-2021 BASO # 0.0 103/ul Normal 0.0-0.1 [facility] Comment on above: Performed By: #### A 1C #### [facility] [address] [place] [address] Dr. Davidson Saunders Basophils/100 WBC (Bld) 0.3 % Normal 0.2-2.0 [facility] Comment on above: Performed By: #### A 1C #### [facility] [address] [place] [address] Dr. Davidson Saunders EO # 0.0 103/ul Normal 0.0-0.7 [facility] Comment on above: Performed By: #### A 1C #### [facility] [address] [address] [address] Davidson Saunders Eosinophils/100 WBC (Bld) 0.0 % Critically low 0.9-7.0 [facility] Comment on above: Performed By: #### A 1C #### [facility] [address] [address] [address] Davidson Saunders Erythrocyte distribution width (RBC) [Ratio] 13.2 % Normal 11.0-15.0 [facility] Comment on above: Performed By: #### A 1C #### [facility] [address] [place] [address] Dr. Davidson Saunders Hematocrit (Bld) [Volume fraction] 30.5 % Critically low 36.0-48.0 [facility] Comment on above: Performed By: #### A 1C #### [facility] [address] [place] [address] Dr. Davidson Saunders Hemoglobin (Bld) [Mass/Vol] 10.0 g/dL Critically low 12.0-16.0 [facility] Comment on above: Performed By: #### A 1C #### [facility] [address] [place] [address] Dr. Davidson Saunders IG # 0.09 10e3/ul Critically high 0.00-0.03 [facility] Comment on above: Performed By: #### A 1C #### [facility] [address] [place] [address] Dr. Davidson Saunders IG % 0.9 % Critically high 0.0-0.5 [facility] Comment on above: Performed By: #### A 1C #### [facility] [address] [place] [address] Dr. Davidson Saunders LYMPH # 1.5 103/ul Normal 1.2-3.8 [facility] Comment on above: Performed By: #### A 1C #### [facility] [address] [place] [address] Dr. Davidson Saunders Lymphocytes/100 WBC (Bld) 14.2 % Critically low 20.5-60.0 [facility] Comment on above: Performed By: #### A 1C #### [facility] [address] [place] [address] Dr. Davidson Saunders MANUAL DIFF REQ NO Normal [facility] Comment on above: Performed By: #### A 1C #### [facility] [address] [address] [address] Davidson Saunders MCH (RBC) [Entitic mass] 28.1 pg Normal 26.7-34.0 [facility] Comment on above: Performed By: #### A 1C #### [facility] [address] [place] [address] Dr. Davidson Saunders MCHC (RBC) [Mass/Vol] 32.8 g/dL Normal 29.9-35.2 [facility] Comment on above: Performed By: #### A 1C #### [facility] [address] [address] [address] Davidson Saunders MCV (RBC) [Entitic vol] 85.7 fL Normal 81.0-99.0 [facility] Comment on above: Performed By: #### A 1C #### [facility] [address] [place] [address] Dr. Davidson Saunders MONO # 0.8 103/ul Normal 0.3-0.8 [facility] Comment on above: Performed By: #### A 1C #### [facility] [address] [place] [address] Dr. Davidson Saunders Monocytes/100 WBC (Bld) 8.1 % Normal 1.7-12.0 [facility] Comment on above: Performed By: #### A 1C #### [facility] [address] [place] [address] Dr. Davidson Saunders NEUT # 7.8 103/ul Critically high 1.4-6.5 [facility] Comment on above: Performed By: #### A 1C #### [facility] [address] [place] [address] Dr. Davidson Saunders Neutrophils/100 WBC (Bld) 76.5 % Critically high 43.0-75.0 [facility] Comment on above: Performed By: #### A 1C #### [facility] [address] [place] [address] Dr. Davidson Saunders Platelet mean volume (Bld) [Entitic vol] 9.1 fL Critically low 9.5-13.5 [facility] Comment on above: Performed By: #### A 1C #### [facility] [address] [address] [address] Davidson Saunders PLT 255 103/ul Normal 150-450 [facility] Comment on above: Performed By: #### A 1C #### [facility] [address] [address] [address] Davidson Saunders RBC 3.56 106/ul Critically low 4.20-5.40 [facility] Comment on above: Performed By: #### A 1C #### [facility] [address] [address] [address] Davidson Saunders WBC 10.2 103/ul Normal 4.0-11.0 [facility] Comment on above: Performed By: #### A 1C #### [facility] [address] [address] [address] Davidson Saunders PROF 14(COMP METB)on 022 Albumin [Mass/Vol] 3.3 g/dL Critically low 3.4-5.0 [facility] Comment on above: Performed By: #### C MP ####[facility] [address] [place] [address]Dr. Davidson Saunders Albumin/Globulin [Mass ratio] 0.8 {ratio} Normal [facility] Comment on above: Performed By: #### C MP ####[facility] [address] [place] [address]Dr. Davidson Saunders ALP [Catalytic activity/Vol] 92 U/L Normal 46-116 [facility] Comment on above: Performed By: #### C MP ####[facility] [address] [place] [address]Dr. Davidson Saunders ALT [Catalytic activity/Vol] 17 U/L Normal 14-59 [facility] Comment on above: Performed By: #### C MP ####[facility] [address] [place] [address]Dr. Davidson Saunders Anion gap [Moles/Vol] 12.8 mmol/L Normal [facility] Comment on above: Performed By: #### C MP ####[facility] [address] [place], [place] [address]Op. Davidson Saunders AST [Catalytic activity/Vol] 12 U/L Critically low 15-37 [facility] Comment on above: Performed By: #### C MP ####[facility] [address] [place], [place] [address]Yf. Davidson Saunders Bilirubin [Mass/Vol] 0.2 mg/dL Normal 0.2-1.0 [facility] Comment on above: Performed By: #### C MP ####[facility] [address] [place] [address]Dr. Davidson Saunders Calcium [Mass/Vol] 9.2 mg/dL Normal 8.5-10.1 [facility] Comment on above: Performed By: #### C MP ####[facility] [address] [place] [address]Dr. Davidson Saunders Chloride [Moles/Vol] 105 mmol/L Normal 98-107 [facility] Comment on above: Performed By: #### C MP ####[facility] [address] [place] [address]Dr. Davidson Saunders CO2 [Moles/Vol] 24.7 mmol/L Normal 21.0-32.0 [facility] Comment on above: Performed By: #### C MP ####[facility] [address] [place] [address]Dr. Davidson Saunders Creatinine [Mass/Vol] 1.36 mg/dL Critically high 0.55-1.02 [facility] Comment on above: Performed By: #### C MP ####[facility] [address] [place] [address]Dr. Davidson Saunders EGFR-AF EQUATORIAL GUINEAN 46 mL/min/1.73m2 Critically low >=60 [facility] Comment on above: Performed By: #### C MP ####[facility] [address] [place] [address]Dr. Davidson Saunders EGFR-NON AF EQUATORIAL GUINEAN 38 mL/min/1.73m2 Critically low >=60 [facility] Comment on above: Performed By: #### C MP ####[facility] [address] [place] [address]Dr. Davidson Saunders Globulin (S) [Mass/Vol] 4.3 g/dL Normal [facility] Comment on above: Performed By: #### C MP ####[facility] [address] [place] [address]Dr. Davidson Saunders Glucose [Mass/Vol] 106 mg/dL Normal 74-106 [facility] Comment on above: Performed By: #### C MP ####[facility] [address] [place] [address]Dr. Davidson Saunders Potassium [Moles/Vol] 4.5 mmol/L Normal 3.5-5.1 [facility] Comment on above: Performed By: #### C MP ####[facility] [address] [place] [address]Dr. Davidson Saunders Protein [Mass/Vol] 7.6 g/dL Normal 6.4-8.2 [facility] Comment on above: Performed By: #### C MP ####[facility] [address] [place] [address]Dr. Davidson Saunders Sodium [Moles/Vol] 138 mmol/L Normal 136-145 [facility] Comment on above: Performed By: #### C MP ####[facility] [address] [place] [address]Dr. Davidson Saunders Urea nitrogen [Mass/Vol] 24.0 mg/dL Critically high 7.0-18.0 [facility] Comment on above: Performed By: #### C MP ####[facility] [address]xs[address] [place] [address]Dr. Davidson Saunders Urea nitrogen/Creatinine [Mass ratio] 17.6 mg/mg Normal [facility] Comment on above: Performed By: #### C MP ####[facility] [address] [place] [address]Dr. Davidson Saunders CARDIAC DIEGO 3-6on 2 CK [Catalytic activity/Vol] 42 U/L Normal 26-192 [facility] Comment on above: Performed By: #### C MREP ####[facility] [address] [place] [address]DrGina Saunders CK.MB [Mass/Vol] 1.07 ng/mL Normal <=3.60 [facility] Comment on above: Performed By: #### C MREP ####[facility] [address] [place] [address]Dr. Davidson Saunders HSTROP 13.0 pg/mL Normal 4.0-51.3 [facility] Comment on above: Result Comment: CUT- OFF POINTS HAVE BEEN ESTABLISHED BASED ON THE FOURTH UNIVERSAL DEFINITIONS OF MYOCARDIAL INFARCTION. THE UPPER REFERENCE LIMIT (URL) OF TROPONIN, DEFINED THE 99TH PERCENTILE OF cTnI DISTRIBUTION IN A REFERENCE POPULATION, HAS BEEN CONFIRMED THE DECISION THRESHOLD FOR TX DIAGNOSIS. Performed By: #### C MREP ####[facility] [address] [place] [address]DrGina Saunders CK [Catalytic activity/Vol] 47 U/L Normal 26-192 [facility] Comment on above: Performed By: #### C MREP #### [facility] [address] [address] [address] Davidson Saunders CK.MB [Mass/Vol] 0.69 ng/mL Normal <=3.60 [facility] Comment on above: Performed By: #### C MREP #### [facility] [address] [address] [address] Davidson Saunders HSTROP 12.8 pg/mL Normal 4.0-51.3 [facility] Comment on above: Result Comment: CUT- OFF POINTS HAVE BEEN ESTABLISHED BASED ON THE FOURTH UNIVERSAL DEFINITIONS OF MYOCARDIAL INFARCTION. THE UPPER REFERENCE LIMIT (URL) OF TROPONIN, DEFINED THE 99TH PERCENTILE OF cTnI DISTRIBUTION IN A REFERENCE POPULATION, HAS BEEN CONFIRMED THE DECISION THRESHOLD FOR TX DIAGNOSIS. Performed By: #### C MREP #### [facility] [address] [address] [address] Davidson Saunders CBC AUTO DIFFon 12-30-2021 BASO # 0.1 103/ul Normal 0.0-0.1 [facility] Comment on above: Performed By: #### C BC ####[facility] [address] [place] [address]Dr. Davidson Saunders Basophils/100 WBC (Bld) 0.5 % Normal 0.2-2.0 [facility] Comment on above: Performed By: #### C BC ####[facility] [address] [place] [address]Dr. Davidson Saunders EO # 0.1 103/ul Normal 0.0-0.7 [facility] Comment on above: Performed By: #### C BC ####[facility] [address] [place], [place] [address]Dr. Davidson Saunders Eosinophils/100 WBC (Bld) 1.1 % Normal 0.9-7.0 [facility] Comment on above: Performed By: #### C BC ####[facility] [address] [place], [place] [address]Dr. Davidsno Saunders Erythrocyte distribution width (RBC) [Ratio] 13.4 % Normal 11.0-15.0 [facility] Comment on above: Performed By: #### C BC ####[facility] [address] [place] [address]Dr. Davidson Saunders Hematocrit (Bld) [Volume fraction] 32.4 % Critically low 36.0-48.0 [facility] Comment on above: Performed By: #### C BC ####[facility] [address] [place] [address]Dr. Davidson Saunders Hemoglobin (Bld) [Mass/Vol] 10.5 g/dL Critically low 12.0-16.0 [facility] Comment on above: Performed By: #### C BC ####[facility] [address] [place] [address]Dr. Davidson Saunders IG # 0.07 10e3/ul Critically high 0.00-0.03 [facility] Comment on above: Performed By: #### C BC ####[facility] [address] [place], [place] [address]Dr. Davidson Saunders IG % 0.6 % Critically high 0.0-0.5 [facility] Comment on above: Performed By: #### C BC ####[facility] [address] [place] [address]Dr. Davidson Saunders LYMPH # 1.7 103/ul Normal 1.2-3.8 [facility] Comment on above: Performed By: #### C BC ####[facility] [address] [place], [place] [address]Zz. Davidson Chip Lymphocytes/100 WBC (Bld) 14.5 % Critically low 20.5-60.0 [facility] Comment on above: Performed By: #### C BC ####[facility] [address] [place] [address]Dr. Davidson Saunders MANUAL DIFF REQ NO Normal [facility] Comment on above: Performed By: #### C BC ####[facility] [address] [place] [address]Dr. Meicharlotte Saunders MCH (RBC) [Entitic mass] 27.9 pg Normal 26.7-34.0 [facility] Comment on above: Performed By: #### C BC ####[facility] [address] [place] [address]Dr. Davidson Chip MCHC (RBC) [Mass/Vol] 32.4 g/dL Normal 29.9-35.2 [facility] Comment on above: Performed By: #### C BC ####[facility] [address] [place] [address]Dr. Davidson Saunders MCV (RBC) [Entitic vol] 86.2 fL Normal 81.0-99.0 [facility] Comment on above: Performed By: #### C BC ####[facility] [address] [place] [address]Dr. Davidson Chip MONO # 1.1 103/ul Critically high 0.3-0.8 [facility] Comment on above: Performed By: #### C BC ####[facility] [address]itm[address] [place] [address]Dr. Davidson Saunders Monocytes/100 WBC (Bld) 9.8 % Normal 1.7-12.0 [facility] Comment on above: Performed By: #### C BC ####[facility] [address]bl[address] [place] [address]Dr. Davidson Saunders NEUT # 8.6 103/ul Critically high 1.4-6.5 [facility] Comment on above: Performed By: #### C BC ####[facility] [address]nu[address] [place] [address]Dr. Davidson Saunders Neutrophils/100 WBC (Bld) 73.5 % Normal 43.0-75.0 [facility] Comment on above: Performed By: #### C BC ####[facility] [address]cxmi[address] [place] [address]Dr. Davidson Saunders Platelet mean volume (Bld) [Entitic vol] 8.8 fL Critically low 9.5-13.5 [facility] Comment on above: Performed By: #### C BC ####[facility] [address] [place] [address]Dr. Davidson Saunders PLT 222 103/ul Normal 150-450 [facility] Comment on above: Performed By: #### C BC ####[facility] [address] [place] [address]Dr. Davidson Saunders RBC 3.76 106/ul Critically low 4.20-5.40 [facility] Comment on above: Performed By: #### C BC ####[facility] F[address]ffoen[address] [place] [address]Dr. Davidson Saunders WBC 11.6 103/ul Critically high 4.0-11.0 [facility] Comment on above: Performed By: #### C BC ####[facility] [address] [place], [place] [id number]. Davidson Saunders CT STROKE HEAD WOon 12-31-19 CT STROKE HEAD WO NONCONTRAST CT SCAN OF THE HEAD CT STROKE HEAD WO HISTORY:: Transient cerebral ischemia . 71-year-old female TECHNIQUE: Multiple axial images are taken from the level the vertex down to the base of the skull without the use of IV contrast. Images were then reconstructed in the sagittal and coronal planes. This exam was performed according to our departmental dose-optimization program which includes use of Automated Exposure Control, adjustment of the mA and/or kV according to patient size and/or use of iterative reconstruction technique. COMPARISON: 08/11/2021 FINDINGS: Brain Parenchyma: Stable encephalomalacia within the right temporal lobe and right parietal lobe. There is global, diffuse atrophy with periventricular decreased white matter attenuation. Stable old right basal ganglia lacunar infarct No intracranial mass. No intracranial hemorrhage. Posterior fossa: Normal. Midline shift: None Extra-axial fluid collection: None Ventricles: Normal. Mastoid air cells: Normal. Sinuses: Normal. Cranium: No depressed skull fracture. Soft tissues: Normal. Orbits: Normal. IMPRESSION: 1. Chronic small vessel ischemic change with evidence of old, stable stroke within the right temporal lobe and right occipital lobes with associated volume loss and encephalomalacia consistent with old right MCA distribution infarct. 2. Old right basal ganglia lacunar infarct. 3. In the setting of hyperacute stroke, findings may not be readily visualized on a noncontrast CT. Please correlate clinically. If there is any clinical concern for hyperacute stroke, MRI with diffusion-weighted imaging would help better delineate. Electronically authenticated by: ANIYA SANTOYO Date: 2021-12-29 22:08 Normal [facility] Covid-19 PCR (CVDTBH)on 12-21 SARS-CoV-2 (COVID-19) RNA SAE+probe Ql (Unsp spec) Detected Critically abnormal NOT DETECTED [facility] Comment on above: Result Comment: This test is not yet approved or cleared by the [place] FDA. When there are no FDA-approved or cleared tests available, and other criteria are met, FDA can make tests available under an emergency access mechanism called an Emergency Use Authorization (EUA). The EUA for this test is supported by the [place] of Health and Human Service's declaration that circumstances exist to justify the emergency use of in vitro diagnostics for the detection and/or diagnosis of the virus that causes COVID-19. This EUA will remain in effect for the duration of the COVID-19 declaration justifying emergency of IVDs, unless it is terminated or revoked by the FDA (after which the test may no longer be used). Performed By: #### [facility] ####[facility] [address]ks[address] [place], [place] [address]SfGina Saunders ER URINE PROFILEon 2 Bilirubin Ql (U) Negative Normal NEGATIVE [facility] Comment on above: Performed By: #### Zbigniew BANUELOS UMICRO ####[facility] [address] [place], [place] [address]Dr. Davidson Saunders Clarity (U) CLEAR Normal CLEAR [facility] Comment on above: Performed By: #### Zbigniew BANUELOS UMICRO ####[facility] [address] [place], [place] [address]Dr. Davidson Saunders Color (U) LT. YELLOW Normal YELLOW [facility] Comment on above: Performed By: #### Zbigniew BANUELOS UMICRO ####[facility] [address] [place], [place] [address]Dr. Davisdon Saunders ERUAHD A micrscopic examination will be performed if indicated. Normal [facility] Comment on above: Performed By: #### Zbigniew BANUELOS UMICRO ####[facility] [address] [place], [place] [address]Dr. Davidson Saunders Glucose Ql (U) Negative Normal NEGATIVE [facility] Comment on above: Performed By: #### Zbigniew BANUELOS UMICRO ####[facility] [address] [place], [place] [address]Dr. Davidson Saunders Hemoglobin Ql (U) TRACE-INTACT Abnormal NEGATIVE [facility] Comment on above: Performed By: #### Zbigniew BANUELOS UMICRO ####[facility] [address]pcnevm[address] [place], [place] [address]Dr. Davidson Saunders Ketones Ql (U) Negative Normal NEGATIVE [facility] Comment on above: Performed By: #### Zbigniew BANUELOS UMICRO ####[facility] [address] [place], [place] [address]Dr. Davidson Saunders LEUKOCYTES SMALL Abnormal NEGATIVE [facility] Comment on above: Performed By: #### Zbigniew BANUELOS UMICRO ####[facility] [address]we[address] [place], [place] [address]Dr. Davidson Saunders Nitrite Ql (U) Positive Abnormal NEGATIVE [facility] Comment on above: Performed By: #### TAVO ALVARES ####[facility] [address]qs[address]qi[address] [place] [address]Dr. Davidson Saunders pH (U) 6.0 [pH] Normal 5-9 [facility] Comment on above: Performed By: #### TAVO ALVARES ####[facility] [address]qre[address] [place] [address]Dr. Davidson Saunders SPEC GRAVITY <=1.005 Abnormal 1.005-<=1.025 [facility] Comment on above: Performed By: #### TAVO ALVARES ####[facility] [address] [place] [address]Dr. Davidson Saunders UA PROTEIN Negative Normal NEGATIVE/ TRACE [facility] Comment on above: Performed By: #### TAVO ALVARES ####[facility] [address]oj[address] [place] [address]Dr. Davidson Saunders UR MICRO IND INDICATED Normal [facility] Comment on above: Performed By: #### TAVO ALVARES ####[facility] [address] [place] [address]Dr. Davidson Saunders Urobilinogen Qn (U) 0.2 {Balaji'U}/dL Normal 0.2 - 1. 0 [facility] Comment on above: Performed By: #### TAVO ALVARES ####[facility] [address] [place] [address]Dr. Davidson Saunders LIPID PROFILEon 12-30-2021 CHOL-HDL RATIO NORM SEE BELOW Normal [facility] Comment on above: Result Comment: 3.3 - 4.4 LOW RISK 4.4 - 7.1 AVERAGE RISK 7.1 - 11.0 MODERATE RISK >11.0 HIGH RISK Performed By: #### P OCGLUC #### [facility] [address] [address] [address] Davidson Saunders Cholesterol [Mass/Vol] 170 mg/dL Normal <=200 [facility] Comment on above: Performed By: #### P OCGLUC #### [facility] [address] [address] [address] Davidson Saunders Cholesterol in HDL [Mass/Vol] 68 mg/dL Critically high 40-60 [facility] Comment on above: Performed By: #### P OCGLUC #### [facility] Laboratory [address] [address] [address] Davidson Saunders Cholesterol in LDL [Mass/Vol] 78.8 mg/dL Normal [facility] Comment on above: Performed By: #### P OCGLUC #### [facility] [address] [address] [address] Davidson Saunders Cholesterol.total/Chol esterol in HDL [Mass ratio] 2.5 {ratio} Normal [facility] Comment on above: Performed By: #### P OCGLUC #### [facility] [address] [address] [address] Davidson Saunders HDL NORMAL > or = 60 mg/dl - LO W CARDIOVASCULAR RISK <40 mg/dl - HIGH CARDIOVASCULAR RISK Normal [facility] Comment on above: Performed By: #### P OCGLUC #### [facility] [address] [address] [address] Davidson Saunders LDL CALC NORMAL SEE BELOW Normal [facility] Comment on above: Result Comment: <100 mg/dl OPTIMAL 100 - 129 mg/dl NEAR OR ABOVE OPTIMAL 130 - 159 mg/dl BORDERLINE HIGH 160 - 189 mg/dl HIGH >190 mg/dl VERY HIGH Performed By: #### P OCGLUC #### [facility] [address] [address] [address] Davidson Saunders Triglyceride [Mass/Vol] 116 mg/dL Normal <=150 [facility] Comment on above: Performed By: #### P OCGLUC #### [facility] [address] [address] [address] Davidson Saunders VLDL CALC 23.2 mg/dL Normal [facility] Comment on above: Performed By: #### P OCGLUC #### [facility] [address] [place] [address] Dr. Davidson Saunders MRI BRAIN WO CONon MRI BRAIN WO CON EXAM: MRI BRAIN WO CON CLINICAL INDICATION: Transient cerebral ischemia COMPARISON: Noncontrast CT head 12/29/2021. MRI brain 08/12/2021. TECHNIQUE/PROTOCOL: Standard noncontrast protocol brain MRI performed (Sagittal T1 with axial T1, T2, GRE, FLAIR, and diffusion-weighted imaging). FINDINGS: Three small diffusion restricting foci involve the posterior medial left temporal and left occipital lobes with faint associated hyperintense T2/FLAIR parenchymal signal changes. No associated susceptibility signal. No extra-axial fluid collection, hydrocephalus, midline shift, or other mass effect. Intracranial flow voids are maintained. Patchy and confluent hyperintense T2/FLAIR periventricular and subcortical foci are likely on the basis of chronic microvascular angiopathic changes. Npoq-aj-icthcljw symmetric global volume loss without lobar predominance. Commensurate enlargement system caliber prominence. 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 Unchanged right temporal and occipital encephalomalacia/glio sis with cortical laminar necrosis and focal susceptibility signal. Normal marrow signal. No soft tissue abnormalities. Trace scattered paranasal sinus mucosal thickening. Mastoid air cells are well-aerated. 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 These could be on the basis of an embolic phenomenon. Electronically authenticated by: GISELLE BRENNAN Date: 2021-12-30 15:04 Normal [facility] POINT OF CARE GLUCOSEon 12-21 Glucose [Mass/Vol] 441 mg/dL Critically high -106 [facility] Comment on above: Performed By: #### P OCGLUC #### [facility] [address] [address] [address] Davidson Saunders Glucose [Mass/Vol] 179 mg/dL Critically high 74-106 [facility] Comment on above: Performed By: #### P OCGLUC #### [facility] [address] [address] [address] Davidson Saunders Glucose [Mass/Vol] 110 mg/dL Critically high -106 [facility] Comment on above: Performed By: #### A 1C #### [facility] [address] [address] [address] Davidson Saunders PROF 14(COMP METB)on 022 Albumin [Mass/Vol] 3.6 g/dL Normal 3.4-5.0 [facility] Comment on above: Performed By: #### P OCGLUC #### [facility] [address] [address] [address] Davidson Saunders Albumin/Globulin [Mass ratio] 0.9 {ratio} Normal [facility] Comment on above: Performed By: #### P OCGLUC #### [facility] [address] [address] [address] Davidson Saunders ALP [Catalytic activity/Vol] 105 U/L Normal 46-116 [facility] Comment on above: Performed By: #### P OCGLUC #### [facility] [address] [address] [address] Davidson Saunders ALT [Catalytic activity/Vol] 20 U/L Normal 14-59 [facility] Comment on above: Performed By: #### P OCGLUC #### [facility] [address] [address] [address] Davidson Saunders Anion gap [Moles/Vol] 17.1 mmol/L Normal [facility] Comment on above: Performed By: #### P OCGLUC #### [facility] [address] [address] [address] Davidson Saunders AST [Catalytic activity/Vol] 15 U/L Normal 15-37 [facility] Comment on above: Performed By: #### P OCGLUC #### [facility] [address] [address] [address] Davidson Saunders Bilirubin [Mass/Vol] 0.3 mg/dL Normal 0.2-1.0 [facility] Comment on above: Performed By: #### P OCGLUC #### [facility] [address] [address] [address] Davidson Saunders Calcium [Mass/Vol] 9.3 mg/dL Normal 8.5-10.1 [facility] Comment on above: Performed By: #### P OCGLUC #### [facility] [address] [address] [address] Davidson Saunders Chloride [Moles/Vol] 103 mmol/L Normal 98-107 [facility] Comment on above: Performed By: #### P OCGLUC #### [facility] [address] [address] [address] Davidson Saunders CO2 [Moles/Vol] 25.0 mmol/L Normal 21.0-32.0 [facility] Comment on above: Performed By: #### P OCGLUC #### [facility] [address] [address] [address] Davidson Saunders Creatinine [Mass/Vol] 1.36 mg/dL Critically high 0.55-1.02 [facility] Comment on above: Performed By: #### P OCGLUC #### [facility] [address] [address] [address] Davidson Saunders EGFR-AF EQUATORIAL GUINEAN 46 mL/min/1.73m2 Critically low >=60 [facility] Comment on above: Performed By: #### P OCGLUC #### [facility] [address] [address] [address] Davidson Saunders EGFR-NON AF EQUATORIAL GUINEAN 38 mL/min/1.73m2 Critically low >=60 [facility] Comment on above: Performed By: #### P OCGLUC #### [facility] [address] [address] [address] Davidson Saunders Globulin (S) [Mass/Vol] 4.0 g/dL Normal [facility] Comment on above: Performed By: #### P OCGLUC #### [facility] [address] [address] [address] Davidson Saunders Glucose [Mass/Vol] 103 mg/dL Normal 74-106 [facility] Comment on above: Performed By: #### P OCGLUC #### [facility] [address] [address] [address] Davidson Saunders Potassium [Moles/Vol] 4.1 mmol/L Normal 3.5-5.1 [facility] Comment on above: Performed By: #### P OCGLUC #### [facility] [address] [address] [address] Davidson Saunders Protein [Mass/Vol] 7.6 g/dL Normal 6.4-8.2 [facility] Comment on above: Performed By: #### P OCGLUC #### [facility] [address] [address] [address] Davidson Saunders Sodium [Moles/Vol] 141 mmol/L Normal 136-145 [facility] Comment on above: Performed By: #### P OCGLUC #### [facility] [address] [address] [address] Davidson Saunders Urea nitrogen [Mass/Vol] 19.0 mg/dL Critically high 7.0-18.0 [facility] Comment on above: Performed By: #### P OCGLUC #### [facility] [address] [address] [address] Davidson Saunders Urea nitrogen/Creatinine [Mass ratio] 14.0 mg/mg Normal [facility] Comment on above: Performed By: #### P OCGLUC #### [facility] [address] [address] [address] Davidson Saunders TSHon 12-30-2021 TSH 0.403 uIU/mL Normal 0.358-3.740 [facility] Comment on above: Performed By: #### P OCGLUC #### [facility] [address] [address] [address] Davidson Saunders URINE MICROSCOPIC ONLYon BACTERIA LARGE Abnormal NONE SEEN [facility] Comment on above: Performed By: #### CHARO ALVARESRO ####[facility] [address] [address]Dr. Davidson Saunders Bacteria identified Cx Nom (U) INDICATED Normal [facility] Comment on above: Performed By: #### Zbigniew BANUELOS UMICRO ####[facility] [address] [address]Dr. Davidson Saunders CAST NONE SEEN Normal NONE SEEN [facility] Comment on above: Performed By: #### CHARO ALVARESRO ####[facility] [address] [address]Dr. Davidson Saunders Crystals LM Nom (Urine sed) NONE SEEN Normal NONE SEEN [facility] Comment on above: Performed By: #### CHARO ALVARESRO ####[facility] [address] [id number]. Davidson Saunders Epithelial cells LM Ql (Urine sed) RARE Normal NONE SEEN /RARE [facility] Comment on above: Performed By: #### TAVO ALVARES ####[facility] [address] [address]Dr. Davidson Saunders MUCOUS NONE SEEN Normal NONE SEEN [facility] Comment on above: Performed By: #### TAVO ALVARES ####[facility] [address] [address]Dr. Davidson Saunders RBC 0-2 Normal 0-2 [facility] Comment on above: Performed By: #### TAVO ALVARES ####[facility] [address] [address]Dr. Davidson Saunders WBC 10-20 Abnormal NONE SEEN [facility] Comment on above: Performed By: #### TAVO ALVARES ####[facility] [address] [id number]. Davidson Saunders US CAROTID ART BILon 022 US CAROTID ART KWAME EXAMINATION: US CAROTID ART KWAME HISTORY: Transient cerebral ischemia COMPARISON: No relevant comparison available. TECHNIQUE: Duplex Doppler ultrasound analysis of carotid and vertebral arteries. . Bilateral carotid arterial duplex examination was performed using B-mode, color flow and spectral analysis. Carotid stenosis is reported according to validated velocity parameters, similar to NASCET criteria. FINDINGS: RIGHT CAROTID ARTERY Moderate to severe atherosclerotic plaque. Maximum area of reduction 87% proximal ICA Subclavian: PSV: 162.4 cm/s cm/s EDV: 14.2 cm/s cm/s CCA: Prox: PSV: 108.0 cm/s cm/s EDV: 12.8 cm/s cm/s Mid: PSV: 108.2 cm/s cm/s EDV: 18.9 cm/s cm/s Distal: PSV: 94.0 cm/s cm/s EDV: 18.9 cm/s cm/s BULB: PSV: 130.2 cm/s cm/s EDV: 26.7 cm/s cm/s ICA: Prox: PSV: 189.5 cm/s cm/s EDV: 38.6 cm/s cm/s Mid: PSV: 159.3 cm/s cm/s EDV: 29.3 cm/s cm/s Distal: PSV: 96.3 cm/s cm/s EDV: 18.7 cm/s cm/s ECA: PSV: 177.9 cm/s cm/s EDV: 0.0 cm/s cm/s VERTEBRAL: PSV: 49.6 cm/s cm/s EDV: 8.6 cm/s cm/s ICA/CCA ratio: PSV: 2.0 EDV: 2.0 LEFT CAROTID ARTERY Moderate to severe atherosclerotic plaque. Maximum area reduction 83% proximal ICA Subclavian: PSV: 113.6 cm/s cm/s EDV: 9.5 cm/s CCA: Prox: PSV: 103.4 cm/s cm/s EDV: 8.9 cm/s Mid: PSV: 86.5 cm/s cm/s EDV: 7.6 cm/s Distal: PSV: 102.1 cm/s cm/s EDV: 6.3 cm/s BULB: PSV: 164.7 cm/s cm/s EDV: 0.0 cm/s ICA: Prox: PSV: 101.6 cm/s cm/s EDV: 17.6 cm/s Mid: PSV: 93.0 cm/s cm/s EDV: 18.2 cm/s Distal: PSV: 66.6 cm/s cm/s EDV: 17.1 cm/s ECA: PSV: 131.9 cm/s cm/s EDV: 0.0 cm/s VERTEBRAL: PSV: 114.5 cm/s cm/s EDV: 17.6 cm/s ICA/CCA ratio: PSV: 1.6 EDV: 0.0 IMPRESSION: Flow velocities suggests less than 50% flow stenosis, however maximum area reduction of 87% in the right ICA and 83% in the left ICA are observed. Surgical consultation recommended. Spectral Doppler US Thresholds (Reference: Nakul EG, et al. Radiology 2000; 214:247-252) Stenosis (%) PSV (cm/sec) VICA/VCCA 0-49 <150 <2.5 50-69 150-225 2.5-4.0 >70 >225 >4.0 Electronically authenticated by: ABHI BECERRIL Date: 2021-12-30 07:46 Normal [facility] XR CHEST 2 Von 12-30-2021 XR CHEST 2 V EXAMINATION: XR CHES T 2 V HISTORY: Confusion COMPARISON: Chest x-ray 08/11/2021 TECHNIQUE: PA and lateral chest x-rays FINDINGS: The lung parenchyma is free of consolidation or infiltrate. No pneumothorax or pleural effusion. Status post median sternotomy and valve replacement. The cardiac, mediastinal and hilar contours are normal. Degenerative changes of the thoracic spine. The visualized osseous structures exhibit no gross acute abnormality. IMPRESSION: No acute cardiopulmonary abnormality. Electronically authenticated by: ABHI CARO Date: 2021-12-29 22:00 Normal [facility] CARDIAC DIEGO ADMITon 022 CK [Catalytic activity/Vol] 48 U/L Normal 26-192 [facility] Comment on above: Performed By: #### A 1C #### [facility] [address] [place] [address] Dr. Davidson Saunders CK.MB [Mass/Vol] 0.92 ng/mL Normal <=3.60 [facility] Comment on above: Performed By: #### A 1C #### [facility] [address] [place] [address] Dr. Davidson Saunders HSTROP 15.6 pg/mL Normal 4.0-51.3 [facility] Comment on above: Result Comment: CUT- OFF POINTS HAVE BEEN ESTABLISHED BASED ON THE FOURTH UNIVERSAL DEFINITIONS OF MYOCARDIAL INFARCTION. THE UPPER REFERENCE LIMIT (URL) OF TROPONIN, DEFINED THE 99TH PERCENTILE OF cTnI DISTRIBUTION IN A REFERENCE POPULATION, HAS BEEN CONFIRMED THE DECISION THRESHOLD FOR TX DIAGNOSIS. Performed By: #### A 1C #### [facility] [address] [place] [address] Dr. Davidson Saunders ROJELIO 57 ng/mL Normal 9-82 [facility] Comment on above: Performed By: #### A 1C #### [facility] [address] [place] [address] Dr. Davidson Saunders CBC AUTO DIFFon 12-29-2021 BASO # 0.1 103/ul Normal 0.0-0.1 [facility] Comment on above: Performed By: #### C BC ####[facility] [address] [id number]. Davidson Saunders Basophils/100 WBC (Bld) 0.4 % Normal 0.2-2.0 [facility] Comment on above: Performed By: #### C BC ####[facility] [address] [address]Dr. Davidson Saunders EO # 0.1 103/ul Normal 0.0-0.7 [facility] Comment on above: Performed By: #### C BC ####[facility] [address] [address]Dr. Davidson Saunders Eosinophils/100 WBC (Bld) 1.0 % Normal 0.9-7.0 [facility] Comment on above: Performed By: #### C BC ####[facility] [address] [place], [place] [address]Dr. Davidson Saunders Erythrocyte distribution width (RBC) [Ratio] 13.2 % Normal 11.0-15.0 [facility] Comment on above: Performed By: #### C BC ####[facility] [address] [place], [place] [id number]. Davidson Saunders Hematocrit (Bld) [Volume fraction] 31.6 % Critically low 36.0-48.0 [facility] Comment on above: Performed By: #### C BC ####[facility] [address] [place], [place] [id number]. Davidson Saunders Hemoglobin (Bld) [Mass/Vol] 10.5 g/dL Critically low 12.0-16.0 [facility] Comment on above: Performed By: #### C BC ####[facility] [address] [place], [place] [address]Dr. Davidson Saunders IG # 0.04 10e3/ul Critically high 0.00-0.03 [facility] Comment on above: Performed By: #### C BC ####[facility] [address] [place], [place] [address]Dr. Davidson Saunders IG % 0.4 % Normal 0.0-0.5 [facility] Comment on above: Performed By: #### C BC ####[facility] [address] [address]Dr. Davidson Saunders LYMPH # 1.6 103/ul Normal 1.2-3.8 [facility] Comment on above: Performed By: #### C BC ####[facility] [address] [address]Dr. Davidson Saunders Lymphocytes/100 WBC (Bld) 14.1 % Critically low 20.5-60.0 [facility] Comment on above: Performed By: #### C BC ####[facility] [address] [address]DrGina Saunders MANUAL DIFF REQ NO Normal [facility] Comment on above: Performed By: #### C BC ####[facility] [address] [address]Dr. Davidson Saunders MCH (RBC) [Entitic mass] 28.0 pg Normal 26.7-34.0 [facility] Comment on above: Performed By: #### C BC ####[facility] [address] [address]Dr. Davidson Saunders MCHC (RBC) [Mass/Vol] 33.2 g/dL Normal 29.9-35.2 [facility] Comment on above: Performed By: #### C BC ####[facility] [address] [address]DrGina Saunders MCV (RBC) [Entitic vol] 84.3 fL Normal 81.0-99.0 [facility] Comment on above: Performed By: #### C BC ####[facility] [address] [address]DrGina Saunders MONO # 1.0 103/ul Critically high 0.3-0.8 [facility] Comment on above: Performed By: #### C BC ####[facility] [address] [address]Dr. Davidson Saunders Monocytes/100 WBC (Bld) 9.0 % Normal 1.7-12.0 [facility] Comment on above: Performed By: #### C BC ####[facility] [address] [place], [place] [address]Dr. Davidson Saunders NEUT # 8.4 103/ul Critically high 1.4-6.5 [facility] Comment on above: Performed By: #### C BC ####[facility] [address] [address]Dr. Davidson Saunders Neutrophils/100 WBC (Bld) 75.1 % Critically high 43.0-75.0 [facility] Comment on above: Performed By: #### C BC ####[facility] [address] [address]Dr. Davidson Saunders Platelet mean volume (Bld) [Entitic vol] 9.0 fL Critically low 9.5-13.5 [facility] Comment on above: Performed By: #### C BC ####[facility] [address] [address]Dr. Davidson Saunders PLT 257 103/ul Normal 150-450 [facility] Comment on above: Performed By: #### C BC ####[facility] [address] [place], [place] [address]TbDr. Davidson Saunders RBC 3.75 106/ul Critically low 4.20-5.40 [facility] Comment on above: Performed By: #### C BC ####[facility] [address] [address]Dr. Davidson Sanuders WBC 11.2 103/ul Critically high 4.0-11.0 [facility] Comment on above: Performed By: #### C BC ####[facility] [address] [address]Dr. Davidson Saunders PROF CHEM 8 (BAS METB)on Anion gap [Moles/Vol] 9.9 mmol/L Normal [facility] Comment on above: Performed By: #### A 1C #### [facility] [address] [place], [place] [address] Dr. Davidson Saunders Calcium [Mass/Vol] 9.5 mg/dL Normal 8.5-10.1 [facility] Comment on above: Performed By: #### A 1C #### [facility] [address] [address] [address] Davidson Saunders Chloride [Moles/Vol] 101 mmol/L Normal 98-107 [facility] Comment on above: Performed By: #### A 1C #### [facility] [address] [address] [address] Davidson Saunders CO2 [Moles/Vol] 28.0 mmol/L Normal 21.0-32.0 [facility] Comment on above: Performed By: #### A 1C #### [facility] [address] [address] [address] Davidson Saunders Creatinine [Mass/Vol] 1.41 mg/dL Critically high 0.55-1.02 [facility] Comment on above: Performed By: #### A 1C #### [facility] [address] [address] [address] Davidson Saunders EGFR-AF EQUATORIAL GUINEAN 44 mL/min/1.73m2 Critically low >=60 [facility] Comment on above: Performed By: #### A 1C #### [facility] [address] [place] [address] Dr. Davidson Saunders EGFR-NON AF EQUATORIAL GUINEAN 37 mL/min/1.73m2 Critically low >=60 [facility] Comment on above: Performed By: #### A 1C #### [facility] [address] [address] [address] Davidson Saunders Glucose [Mass/Vol] 130 mg/dL Critically high 74-106 [facility] Comment on above: Performed By: #### A 1C #### [facility] [address] [address] [address] Davidson Saunders Potassium [Moles/Vol] 3.9 mmol/L Normal 3.5-5.1 [facility] Comment on above: Performed By: #### A 1C #### [facility] [address] [address] [address] Davidson Saunders Sodium [Moles/Vol] 135 mmol/L Critically low 136-145 [facility] Comment on above: Performed By: #### A 1C #### [facility] [address] [address] [address] Davidson Saunders Urea nitrogen [Mass/Vol] 20.0 mg/dL Critically high 7.0-18.0 [facility] Comment on above: Performed By: #### A 1C #### [facility] [address] [address] [address] Davidson Saunders Urea nitrogen/Creatinine [Mass ratio] 14.2 mg/mg Normal [facility] Comment on above: Performed By: #### A 1C #### [facility] [address] [address] [address] Davidson Saunders FREE T3on 12-16-2021 FREE T3 2.05 pg/mlL Critically low 2.18-3.98 [facility] Comment on above: Performed By: #### F T3, TSH ####[facility] [address] [address]Dr. Davidson Saunders FREE T4on 12-16-2021 Free T4 [Mass/Vol] 0.99 ng/dL Normal 0.76-1.46 [facility] Comment on above: Performed By: #### F T4 ####[facility] [address] [address]Dr. Davidson Saunders GLYCOHEMOGLOBIN A1Con 2021 ADA RECOMMENDATION SEE BELOW Normal [facility] Comment on above: Result Comment: ADA RECOMMENDED LIMIT 4.0 - 6.0 ADA THERAPEUTIC TARGET < 7.0 ACTION SUGGESTED > 7.0 Performed By: #### A 1C #### [facility] [address] [address] [address] Davidson Saunders Glucose [Mass/Vol] 134 mg/dL Normal [facility] Comment on above: Performed By: #### A 1C #### [facility] [address] [address] [address] Davidson Saunders HbA1c (Bld) [Mass fraction] 6.3 % Critically high 4.5-6.2 [facility] Comment on above: Performed By: #### A 1C #### [facility] [address] [place], [place] [address] Dr. Davidson Saunders TSHon 12-16-2021 TSH 1.994 uIU/mL Normal 0.358-3.740 [facility] Comment on above: Performed By: #### F T3, TSH ####[facility] [address] [place], [place] [address]NbDr. Davidson Saunders Free T3on 10-02-2021 FT3 3.29 pg/mL Normal 2.00-4.40 [facility] Comment on above: Performed By: #### T SH, FT4, FT3 #### [facility] [address] [place], [place] [id number] Free T4on 10-02-2021 Free T4 [Mass/Vol] 1.70 ng/dL Normal 0.80-1.80 [employer] [facility] [employer] Sales Agent Comment on above: Performed By: #### T SH, FT4, FT3 #### [facility] [address] [place], [place] [id number] TSHon 10-02-2021 TSH 0.069 uIU/mL Low 0.400-4.500 [facility] Insurance Sales Agent Comment on above: Performed By: #### T SH, FT4, FT3 #### [facility] [address] [place], [place] [id number] Basic Metabolic Panelon 04-0 Anion gap [Moles/Vol] 15 mmol/L Normal 12-20 [facility] Comment on above: Result Comment: Effe ctive 05/28/2019 reference range changed. Performed By: #### B MP #### [facility] [address] [place], [place] [id number] Calcium [Mass/Vol] 9.7 mg/dL Normal 8.6-10.2 Agnieszka guan [place] Insurance Sales Agent Comment on above: Performed By: #### B MP #### [facility] [address] [place], [place] [id number] Chloride [Moles/Vol] 104 mmol/L Normal 98-[address] [facility] Comment on above: Performed By: #### B MP #### [facility] [address] [place], [place] [id number] CO2 [Moles/Vol] 25 mmol/L Normal 20-31 [facility] Comment on above: Performed By: #### B MP #### [facility] [address] [place], [place] [id number] Creatinine [Mass/Vol] 1.5 mg/dL High 0.6-1.4 [facility] Comment on above: Performed By: #### B MP #### [facility] [address] [place], [place] [id number] eGFRAA 41 mL/min/1.73m2 Low >60 [facility] Comment on above: Performed By: #### B MP #### [facility] [address] [place], [place] [id number] eGFRNAA 34 mL/min/1.73m2 Low >60 [facility] Comment on above: Performed By: #### B MP #### [facility] [address] [place], [place] [id number] Glucose [Mass/Vol] 137 mg/dL High 65-99 [facility] Comment on above: Result Comment: For FASTING Glucose --- ADA reference ranges: Normal 65-99 mg/dl Prediabetes 100-125 Diabetes >/= 126 Performed By: #### B MP #### [facility] [address] [place], [place] [id number] Potassium [Moles/Vol] 4.3 mmol/L Normal 3.5-5.5 [facility] Comment on above: Performed By: #### B MP #### [facility] [address] [place], [place] [id number] Sodium [Moles/Vol] 140 mmol/L Normal 135-146 [facility] Comment on above: Performed By: #### B MP #### [facility] [address] [place], [place] [id number] Urea nitrogen [Mass/Vol] 17 mg/dL Normal 7-25 [facility] Comment on above: Performed By: #### B MP #### [facility] [address], [place] [id number] PROF CHEM 8 (BAS METB)on Anion gap [Moles/Vol] 13.6 mmol/L Normal [facility] Comment on above: Performed By: #### B MP ####[facility] [address] [place] [address]Dr. Davidson Saunders Calcium [Mass/Vol] 8.8 mg/dL Normal 8.5-10.1 [facility] Comment on above: Performed By: #### B MP ####[facility] [address] [address]Dr. Davidson Saunders Chloride [Moles/Vol] 103 mmol/L Normal 98-107 [facility] Comment on above: Performed By: #### B MP ####[facility] [address] [place], [place] [address]Dr. Davidson Saunders CO2 [Moles/Vol] 25.5 mmol/L Normal 22.0-30.0 [facility] Comment on above: Performed By: #### B MP ####[facility] [address] [place], [place] [address]Dr. Davidson Saunders Creatinine [Mass/Vol] 1.80 mg/dL Critically high 0.52-1.04 [facility] Comment on above: Performed By: #### B MP ####[facility] [address] [place], [place] [address]Dr. Davidson Saunders EGFR-AF EQUATORIAL GUINEAN 34 mL/min/1.73m2 Critically low >=60 [facility] Comment on above: Performed By: #### B MP ####[facility] [address] [place], [place] [address]Dr. Davidson Saunders EGFR-NON AF EQUATORIAL GUINEAN 28 mL/min/1.73m2 Critically low >=60 [facility] Comment on above: Performed By: #### B MP ####[facility] [address] [place], [place] [address]Dr. Davidson Saunders Glucose [Mass/Vol] 112 mg/dL Critically high 74-106 [facility] Comment on above: Performed By: #### B MP ####[facility] [address] [place], [place] [address]Dr. Davidson Saunders Potassium [Moles/Vol] 4.1 mmol/L Normal 3.4-5.0 [facility] Comment on above: Performed By: #### B MP ####[facility] [address] [address]Dr. Davidson Saunders Sodium [Moles/Vol] 138 mmol/L Normal 137-145 [facility] Comment on above: Performed By: #### B MP ####[facility] [address] [address]Dr. Davidson Saunders Urea nitrogen [Mass/Vol] 26.0 mg/dL Critically high 7.0-18.0 [facility] Comment on above: Performed By: #### B MP ####[facility] [address] [place], [place] [address]Dr. Davidson Saunders Urea nitrogen/Creatinine [Mass ratio] 14.4 mg/mg Normal [facility] Comment on above: Performed By: #### B MP ####[facility] [address] [place], [place] [address]Dr. Davidson Saunders CBC AUTO DIFFon 08-13-2021 BASO # 0.1 103/ul Normal 0.0-0.1 [facility] Comment on above: Performed By: #### P OCGLUC #### [facility] [address] [place] [address] Dr. Davidson Saunders Basophils/100 WBC (Bld) 0.8 % Normal 0.2-2.0 [facility] Comment on above: Performed By: #### P OCGLUC #### [facility] [address] [address] [address] Davidson Saunders EO # 0.5 103/ul Normal 0.0-0.7 [facility] Comment on above: Performed By: #### P OCGLUC #### [facility] [address] [place] [address] Dr. Davidson Saunders Eosinophils/100 WBC (Bld) 5.4 % Normal 0.9-7.0 [facility] Comment on above: Performed By: #### P OCGLUC #### [facility] [address] [address] [address] Davidson Saunders Erythrocyte distribution width (RBC) [Ratio] 12.6 % Normal 11.0-15.0 [facility] Comment on above: Performed By: #### P OCGLUC #### [facility] [address] [place] [address] Dr. Davidson Saunders Hematocrit (Bld) [Volume fraction] 31.6 % Critically low 36.0-48.0 [facility] Comment on above: Performed By: #### P OCGLUC #### [facility] [address] [place] [address] Dr. Davidson Saunders Hemoglobin (Bld) [Mass/Vol] 10.0 g/dL Critically low 12.0-16.0 [facility] Comment on above: Performed By: #### P OCGLUC #### [facility] [address] [place] [address] Dr. Davidson Saunders IG # 0.04 10e3/ul Critically high 0.00-0.03 [facility] Comment on above: Performed By: #### P OCGLUC #### [facility] [address] [place] [address] Dr. Davidson Saunders IG % 0.5 % Normal 0.0-0.5 [facility] Comment on above: Performed By: #### P OCGLUC #### [facility] [address] [place] [address] Dr. Davidson Saunders LYMPH # 2.8 103/ul Normal 1.2-3.8 [facility] Comment on above: Performed By: #### P OCGLUC #### [facility] [address] [place] [address] Dr. Davidson Saunders Lymphocytes/100 WBC (Bld) 31.1 % Normal 20.5-60.0 [facility] Comment on above: Performed By: #### P OCGLUC #### [facility] [address] [place] [address] Dr. Davidson Saunders MANUAL DIFF REQ NO Normal [facility] Comment on above: Performed By: #### P OCGLUC #### [facility] [address] [place] [address] Dr. Davidson Saunders MCH (RBC) [Entitic mass] 28.6 pg Normal 26.7-34.0 [facility] Comment on above: Performed By: #### P OCGLUC #### [facility] [address] [address] [address] Davidson Saunders MCHC (RBC) [Mass/Vol] 31.6 g/dL Normal 29.9-35.2 [facility] Comment on above: Performed By: #### P OCGLUC #### [facility] [address] [address] [address] Davidson Saunders MCV (RBC) [Entitic vol] 90.3 fL Normal 81.0-99.0 [facility] Comment on above: Performed By: #### P OCGLUC #### [facility] [address] [place] [address] Dr. Davidson Saunders MONO # 0.7 103/ul Normal 0.3-0.8 [facility] Comment on above: Performed By: #### P OCGLUC #### [facility] [address] [place] [address] Dr. Davidson Saunders Monocytes/100 WBC (Bld) 7.5 % Normal 1.7-12.0 [facility] Comment on above: Performed By: #### P OCGLUC #### [facility] [address] [place] [address] Dr. Davidson Saunders NEUT # 4.9 103/ul Normal 1.4-6.5 [facility] Comment on above: Performed By: #### P OCGLUC #### [facility] [address] [place] [address] Dr. Davidson Saunders Neutrophils/100 WBC (Bld) 54.7 % Normal 43.0-75.0 [facility] Comment on above: Performed By: #### P OCGLUC #### [facility] [address] [place] [address] Dr. Davidson Saunders Platelet mean volume (Bld) [Entitic vol] 8.6 fL Critically low 9.5-13.5 [facility] Comment on above: Performed By: #### P OCGLUC #### [facility] [address] [address] [address] Davidson Saunders PLT 263 103/ul Normal 150-450 [facility] Comment on above: Performed By: #### P OCGLUC #### [facility] [address] [address] [address] Davidson Saunders RBC 3.50 106/ul Critically low 4.20-5.40 [facility] Comment on above: Performed By: #### P OCGLUC #### [facility] [address] [address] [address] Davidson Saunders WBC 8.9 103/ul Normal 4.0-11.0 [facility] Comment on above: Performed By: #### P OCGLUC #### [facility] [address] [address] [address] Davidson Saunders GLYCOHEMOGLOBIN A1Con 2021 ADA RECOMMENDATION ADA THERAPEUTIC TARGET 6.0 - 7.0 ACTION SUGGESTED > 7.0 Normal [facility] Comment on above: Performed By: #### A 1C #### [facility] [address] [place] [address] Dr. Davidson Saunders Glucose [Mass/Vol] 128 mg/dL Normal [facility] Comment on above: Performed By: #### A 1C #### [facility] [address] [place] [address] Dr. Davidson Saunders HbA1c (Bld) [Mass fraction] 6.1 % Critically high <=6.0 [facility] Comment on above: Performed By: #### A 1C #### [facility] [address] [place] [address] Dr. Davidson Saunders LIPID PROFILEon 08-13-2021 CHOL-HDL RATIO NORM SEE BELOW Normal [facility] Comment on above: Result Comment: 3.3 - 4.4 LOW RISK 4.4 - 7.1 AVERAGE RISK 7.1 - 11.0 MODERATE RISK >11.0 HIGH RISK Performed By: #### A 1C #### [facility] [address] [place] [address] Dr. Davidson Saunders Cholesterol [Mass/Vol] 139 mg/dL Normal <=200 [facility] Comment on above: Performed By: #### A 1C #### [facility] [address] [address] [address] Davidson Saunders Cholesterol in HDL [Mass/Vol] 47 mg/dL Normal 40-60 [facility] Comment on above: Performed By: #### A 1C #### [facility] [address] [place], [place] [address] Dr. Davidson Saunders Cholesterol in LDL [Mass/Vol] 57.0 mg/dL Normal [facility] Comment on above: Performed By: #### A 1C #### [facility] [address] [address] [address] Davidson Saunders Cholesterol.total/Chol esterol in HDL [Mass ratio] 3.0 {ratio} Normal [facility] Comment on above: Performed By: #### A 1C #### [facility] [address] [place] [address] Dr. Davidson Saunders HDL NORMAL > or = 60 mg/dl - LO W CARDIOVASCULAR RISK <40 mg/dl - HIGH CARDIOVASCULAR RISK Normal [facility] Comment on above: Performed By: #### A 1C #### [facility] [address] [address] [address] Davidson Saunders LDL CALC NORMAL SEE BELOW Normal [facility] Comment on above: Result Comment: <100 mg/dl OPTIMAL 100 - 129 mg/dl NEAR OR ABOVE OPTIMAL 130 - 159 mg/dl BORDERLINE HIGH 160 - 189 mg/dl HIGH >190 mg/dl VERY HIGH Performed By: #### A 1C #### [facility] [address] [address] [address] Davidson Saunders Triglyceride [Mass/Vol] 175 mg/dL Critically high <=150 [facility] Comment on above: Performed By: #### A 1C #### [facility] [address] [address] [address] Davidson Saunders VLDL CALC 35.0 mg/dL Normal [facility] Comment on above: Performed By: #### A 1C #### [facility] [address] [address] [address] Davidson Saunders PROF 14(COMP METB)on 022 Albumin [Mass/Vol] 3.4 g/dL Normal 3.4-5.0 [facility] Comment on above: Performed By: #### A 1C #### [facility] [address] [place] [address] Dr. Davidson Saunders Albumin/Globulin [Mass ratio] 0.9 {ratio} Normal [facility] Comment on above: Performed By: #### A 1C #### [facility] [address] [place] [address] Dr. Davidson Saunders ALP [Catalytic activity/Vol] 104 U/L Normal 46-116 [facility] Comment on above: Performed By: #### A 1C #### [facility] [address] [place] [address] Dr. Davidson Saunders ALT [Catalytic activity/Vol] 21 U/L Normal 14-59 [facility] Comment on above: Performed By: #### A 1C #### [facility] [address] [place] [address] Dr. Davidson Saunders Anion gap [Moles/Vol] 13.1 mmol/L Normal [facility] Comment on above: Performed By: #### A 1C #### [facility] [address] [place] [address] Dr. Davidson Saunders AST [Catalytic activity/Vol] 12 U/L Critically low 15-37 [facility] Comment on above: Performed By: #### A 1C #### [facility] [address] [place] [address] Dr. Davidson Saunders Bilirubin [Mass/Vol] 0.3 mg/dL Normal 0.2-1.3 [facility] Comment on above: Performed By: #### A 1C #### [facility] [address] [place] [address] Dr. Davidson Saunders Calcium [Mass/Vol] 9.4 mg/dL Normal 8.5-10.1 [facility] Comment on above: Performed By: #### A 1C #### [facility] [address] [place] [address] Dr. Davidson Saunders Chloride [Moles/Vol] 108 mmol/L Critically high 98-107 [facility] Comment on above: Performed By: #### A 1C #### [facility] [address] [address] [address] Davidson Saunders CO2 [Moles/Vol] 26.4 mmol/L Normal 22.0-30.0 [facility] Comment on above: Performed By: #### A 1C #### [facility] [address] [address] [address] Davidson Saunders Creatinine [Mass/Vol] 1.59 mg/dL Critically high 0.52-1.04 [facility] Comment on above: Performed By: #### A 1C #### [facility] [address] [address] [address] Davidson Saunders EGFR-AF EQUATORIAL GUINEAN 39 mL/min/1.73m2 Critically low >=60 [facility] Comment on above: Performed By: #### A 1C #### [facility] [address] [address] [address] Davidson Saunders EGFR-NON AF EQUATORIAL GUINEAN 32 mL/min/1.73m2 Critically low >=60 [facility] Comment on above: Performed By: #### A 1C #### [facility] [address] [address] [address] Davidson Saunders Globulin (S) [Mass/Vol] 3.8 g/dL Normal [facility] Comment on above: Performed By: #### A 1C #### [facility] [address] [address] [address] Davidson Saunders Glucose [Mass/Vol] 86 mg/dL Normal 74-106 [facility] Comment on above: Performed By: #### A 1C #### [facility] [address] [address] [address] Davidson Saunders Potassium [Moles/Vol] 5.5 mmol/L Critically high 3.4-5.0 [facility] Comment on above: Performed By: #### A 1C #### [facility] [address] [address] [address] Davidson Saunders Protein [Mass/Vol] 7.2 g/dL Normal 6.1-8.2 [facility] Comment on above: Performed By: #### A 1C #### [facility] [address] [place] [address] Dr. Davidson Saunders Sodium [Moles/Vol] 142 mmol/L Normal 137-145 [facility] Comment on above: Performed By: #### A 1C #### [facility] [address] [place] [address] Dr. Davidson Saunders Urea nitrogen [Mass/Vol] 20.0 mg/dL Critically high 7.0-18.0 [facility] Comment on above: Performed By: #### A 1C #### [facility] [address] [place] [address] Dr. Davidson Saunders Urea nitrogen/Creatinine [Mass ratio] 12.6 mg/mg Normal [facility] Comment on above: Performed By: #### A 1C #### [facility] [address] [place] [address] Dr. Davidson Saunders CBC AUTO DIFFon 08-12-2021 BASO # 0.1 103/ul Normal 0.0-0.1 [facility] Comment on above: Performed By: #### C BC #### [facility] [address] [place] [address] Dr. Davidson Saunders Basophils/100 WBC (Bld) 0.7 % Normal 0.2-2.0 [facility] Comment on above: Performed By: #### C BC #### [facility] [address] [place] [address] Dr. Davidson Saunders EO # 0.3 103/ul Normal 0.0-0.7 [facility] Comment on above: Performed By: #### C BC #### [facility] [address] [place] [address] Dr. Davidson Saunders Eosinophils/100 WBC (Bld) 3.3 % Normal 0.9-7.0 [facility] Comment on above: Performed By: #### C BC #### [facility] [address] [place] [address] Dr. Davidson Saunders Erythrocyte distribution width (RBC) [Ratio] 13.0 % Normal 11.0-15.0 [facility] Comment on above: Performed By: #### C BC #### [facility] [address] [address] [address] Davidson Saunders Hematocrit (Bld) [Volume fraction] 30.2 % Critically low 36.0-48.0 [facility] Comment on above: Performed By: #### C BC #### [facility] [address] [place] [address] Dr. Davidson Saunders Hemoglobin (Bld) [Mass/Vol] 9.8 g/dL Critically low 12.0-16.0 [facility] Comment on above: Performed By: #### C BC #### [facility] [address] [place] [address] Dr. Davidson Saunders IG # 0.04 10e3/ul Critically high 0.00-0.03 [facility] Comment on above: Performed By: #### C BC #### [facility] [address] [place] [address] Dr. Davidson Saunders IG % 0.4 % Normal 0.0-0.5 [facility] Comment on above: Performed By: #### C BC #### [facility] [address] [place] [address] Dr. Davidson Saunders LYMPH # 2.9 103/ul Normal 1.2-3.8 [facility] Comment on above: Performed By: #### C BC #### [facility] [address] [place] [address] Dr. Davidson Saunders Lymphocytes/100 WBC (Bld) 31.0 % Normal 20.5-60.0 [facility] Comment on above: Performed By: #### C BC #### [facility] [address] [place] [address] Dr. Davidson Saunders MANUAL DIFF REQ NO Normal [facility] Comment on above: Performed By: #### C BC #### [facility] [address] [place] [address] Dr. Davidson Saunders MCH (RBC) [Entitic mass] 28.5 pg Normal 26.7-34.0 [facility] Comment on above: Performed By: #### C BC #### [facility] [address] [address] [address] Davidson Saunders MCHC (RBC) [Mass/Vol] 32.5 g/dL Normal 29.9-35.2 [facility] Comment on above: Performed By: #### C BC #### [facility] [address] [address] [address] Davidson Saunders MCV (RBC) [Entitic vol] 87.8 fL Normal 81.0-99.0 [facility] Comment on above: Performed By: #### C BC #### [facility] [address] [place] [address] Dr. Davidson Saunders MONO # 0.7 103/ul Normal 0.3-0.8 [facility] Comment on above: Performed By: #### C BC #### [facility] [address] [place] [address] Dr. Davidson Saunders Monocytes/100 WBC (Bld) 7.8 % Normal 1.7-12.0 [facility] Comment on above: Performed By: #### C BC #### [facility] [address] [place] [address] Dr. Davidson Saunders NEUT # 5.2 103/ul Normal 1.4-6.5 [facility] Comment on above: Performed By: #### C BC #### [facility] [address] [place] [address] Dr. Davidson Saunders Neutrophils/100 WBC (Bld) 56.8 % Normal 43.0-75.0 [facility] Comment on above: Performed By: #### C BC #### [facility] [address] [place] [address] Dr. Davidson Saunders Platelet mean volume (Bld) [Entitic vol] 10.2 fL Normal 9.5-13.5 [facility] Comment on above: Performed By: #### C BC #### [facility] [address] [place] [address] Dr. Davidson Saunders PLT 227 103/ul Normal 150-450 [facility] Comment on above: Performed By: #### C BC #### [facility] [address] [place], [place] [address] Dr. Davidson Saunders RBC 3.44 106/ul Critically low 4.20-5.40 [facility] Comment on above: Performed By: #### C BC #### [facility] [address] [id number] Davidson Saunders WBC 9.2 103/ul Normal 4.0-11.0 [facility] Comment on above: Performed By: #### C BC #### [facility] [address] [id number] Davidson Saunders ECHOCARDIO M/2D COMPLETEon 0 08-12-2021 ECHOCARDIO M/2D COMPLETE Patient: ELEANOR MCCLAIN Exam Date: 08/12/2021 : 1950 Gender:F Ordering : DR. ALIYAH ROACH . Admission #: [id number] Family : DR GRAYSON HERNANDEZ . Order #: [id number] CLICK HERE TO VIEW EXAM ECHOCARDIOGRAM REPORT PROCEDURE: CARDIO PULMONARY ECHOCARDIO M/2D COMP INDICATIONS: TIA COMPARISON: None. DESCRIPTION: COMPLETE ECHOCARDIOGRAM Real-time transthoracic echocardiography with 2D, M-mode, spectral and color flow Doppler performed. QUALITY: Technical quality was good. LEFT VENTRICLE: Normal chamber size. Mild concentric left ventricular hypertrophy. Global left ventricular systolic function is normal. LV EF: Calculated left ventricular ejection fraction is 62%. DIASTOLIC: Grade 2 diastolic dysfunction. ATRIAL SEPTUM: Agitated saline contrast does not reveal an intra-cardiac shunt. LEFT ATRIUM: Moderate dilatation. RIGHT ATRIUM: Moderate dilatation. RIGHT VENTRICLE: Normal chamber size. Normal right ventricular systolic function. TRICUSPID VALVE: Normal mobility and thickness. No stenosis with mild regurgitation. No evidence of pulmonary hypertension. RVSP 33 mmHg MITRAL VALVE: Moderately thickened with decreased mobility. No mitral valve prolapse. Moderate mitral valve stenosis, mean diastolic gradient is 9 mmHg at a heart rate of 72 bpm. Severe mitral annular calcification. Mild to moderate mitral regurgitation. 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 Peak gradient 19 mmHg. No aortic regurgitation. AORTIC ROOT: Normal diameter and appearance. PULMONIC VALVE: Normal thickness and mobility. No stenosis. No regurgitation. PERICARDIUM: No evidence of pericardial effusion. IVC: Collapses with inspirations. Normal size. PLEURA: CONCLUSION: 1. Normal ventricular systolic function. LVEF is 60 to 65%. 2. Grade 2 diastolic dysfunction. 3. 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 4. Severe mitral annular calcifications causing moderate mitral stenosis with mild to moderate regurgitation. 5. Mild tricuspid regurgitation. 6. Normal right-sided pressures. 7. No evidence of intracardiac shunt by agitated saline study. 8. Biatrial moderate dilatation. Dictated by: Rod Mcfadden M.D. on 08/12/2021 at 17:07 Approved by: Rod Mcfadden M.D. on 08/12/2021 at 17:13 Normal [facility] MRA HEAD WO CONon 08-12-2021 MRA HEAD WO CON EXAMINATION: MRA HEA D WO CON HISTORY: H/O: TIA COMPARISON: None. TECHNIQUE: MR angiogram of the head was obtained with 3D [id number]-[id number] technique. Maximum intensity projection images of the MR angiogram study were also obtained. FINDINGS: There is no large vessel occlusion. There is multifocal irregularity and stenosis in the intracranial arteries. This includes severe stenosis at a M2 branch of the right middle cerebral artery, severe stenosis at the A1 branch of the left anterior cerebral artery, severe stenosis of the M2 branch of the left middle cerebral artery, and multifocal severe stenosis in the right posterior cerebral artery. No appreciable intracranial aneurysms or vascular malformations. IMPRESSION: Multifocal irregularity and stenosis in the intracranial arteries, which could be secondary to extensive intracranial atherosclerotic disease. This includes severe stenosis at the proximal bilateral middle cerebral arteries, proximal left anterior cerebral artery, and proximal right posterior cerebral artery. No large vessel occlusion. Electronically authenticated by: MANJEET GREENFIELD Date: 2021-08-12 15:29 Normal [facility] MRA NECK WO CONon 08-12-2021 MRA NECK WO CON EXAMINATION: MRA NEC K WO CON HISTORY: H/O: TIA. Dizziness, history of stroke. COMPARISON: None. TECHNIQUE: MR angiogram of the neck was obtained with axial 2-D and 3-D vmtq-qt-[id number] technique. Maximum intensity projection images were obtained. FINDINGS: Aortic arch is not included in the [id number]-[id number]-llln. Narrowing of the origin of the right internal carotid artery to a diameter of 3.1 mm compared with a distal diameter of 4.2 mm, calculating to 26% stenosis by NASCET criteria. Narrowing of the origin of the left internal carotid artery to a diameter of 2.1 mm compared to a distal diameter of 4.3 mm, calculating to 49% stenosis by NASCET criteria. The left vertebral artery is dominant with a small caliber right vertebral artery. The vertebral arteries are patent. IMPRESSION: 1. There is approximately 26% stenosis of the proximal right internal carotid artery and 49% stenosis of the proximal left internal carotid artery by NASCET criteria. 2. Left vertebral artery is dominant. The bilateral vertebral arteries are patent. Electronically authenticated by: MANJEET GREENFIELD Date: 2021-08-12 15:29 Normal [facility] MRI BRAIN WO CONon 2 MRI BRAIN WO CON EXAMINATION: MRI BRAIN WO CON, 08/12/2021 12:07 PM EDT HISTORY: Dizziness COMPARISON: None. TECHNIQUE: MRI of the brain was performed without IV contrast. FINDINGS: CEREBRUM: 5 mm focus of restricted diffusion identified in the right posterior frontal white matter, diffusion axial image 46. Moderate diffuse atrophy and white matter signal abnormality, chronic small vessel ischemic changes are favored. Large remote infarct right occipital temporal lobe CEREBELLUM: No edema, hemorrhage, mass, acute infarction, or inappropriate atrophy. BRAINSTEM: No edema, hemorrhage, mass, acute infarction, or inappropriate atrophy. CSF SPACES: Ventricles, cisterns, and sulci are appropriate for age. No hydrocephalus, subarachnoid hemorrhage, or mass. SKULL: No mass or other significant visible lesion. SINUSES: Limited views demonstrate no significant mucosal thickening or fluid. ORBITS: Limited views are unremarkable. OTHER: Findings discussed with Dr. Roach by telephone 3:22 PM IMPRESSION: 5 mm acute infarct right posterior frontal subcortical white matter Moderate atrophy and white matter disease, chronic changes favored Large remote infarct right middle cerebral artery territory Electronically authenticated by: ABHI BECERRIL Date: 2021-08-12 15:22 Normal [facility] PROF 14(COMP METB)on 022 Albumin [Mass/Vol] 3.4 g/dL Normal 3.4-5.0 [facility] Comment on above: Performed By: #### C MP ####[facility] [address] [place] [address]DrGina Saunders Albumin/Globulin [Mass ratio] 1.0 {ratio} Normal [facility] Comment on above: Performed By: #### C MP ####[facility] [address] [place] [address]Dr. Davidson Saunders ALP [Catalytic activity/Vol] 101 U/L Normal 46-116 [facility] Comment on above: Performed By: #### C MP ####[facility] [address] [place] [address]Dr. Davidson Chip ALT [Catalytic activity/Vol] 21 U/L Normal 14-59 [facility] Comment on above: Performed By: #### C MP ####[facility] [address] [place] [address]Dr. Meicharlotte Chip Anion gap [Moles/Vol] 12.6 mmol/L Normal [facility] Comment on above: Performed By: #### C MP ####[facility] [address] [place], [place] [address]Dr. Davidson Saunders AST [Catalytic activity/Vol] 18 U/L Normal 15-37 [facility] Comment on above: Performed By: #### C MP ####[facility] [address] [place], [place] [address]Dr. Meicharlotte Chip Bilirubin [Mass/Vol] 0.2 mg/dL Normal 0.2-1.3 [facility] Comment on above: Performed By: #### C MP ####[facility] [address] [place], [place] [address]Dr. Davidson Saunders Calcium [Mass/Vol] 9.0 mg/dL Normal 8.5-10.1 [facility] Comment on above: Performed By: #### C MP ####[facility] [address] [place], [place] [address]Dr. Davidson Saunders Chloride [Moles/Vol] 107 mmol/L Normal 98-107 [facility] Comment on above: Performed By: #### C MP ####[facility] [address] [place] [address]Dr. Davidson Saunders CO2 [Moles/Vol] 27.6 mmol/L Normal 22.0-30.0 [facility] Comment on above: Performed By: #### C MP ####[facility] [address] [place] [address]Dr. Davidson Saunders Creatinine [Mass/Vol] 1.61 mg/dL Critically high 0.52-1.04 [facility] Comment on above: Performed By: #### C MP ####[facility] [address] [place] [address]Dr. Davidson Saunders EGFR-AF EQUATORIAL GUINEAN 38 mL/min/1.73m2 Critically low >=60 [facility] Comment on above: Performed By: #### C MP ####[facility] [address] [place] [address]Dr. Davidson Saunders EGFR-NON AF EQUATORIAL GUINEAN 31 mL/min/1.73m2 Critically low >=60 [facility] Comment on above: Performed By: #### C MP ####[facility] [address] [place], [place] [address]Dr. Davidson Chip Globulin (S) [Mass/Vol] 3.5 g/dL Normal [facility] Comment on above: Performed By: #### C MP ####[facility] [address] [place], [place] [address]Dr. Davidson Saunders Glucose [Mass/Vol] 93 mg/dL Normal 74-106 [facility] Comment on above: Performed By: #### C MP ####[facility] [address] [place] [address]Dr. Davidson Saunders Potassium [Moles/Vol] 5.2 mmol/L Critically high 3.4-5.0 [facility] Comment on above: Performed By: #### C MP ####[facility] [address] [place] [address]Dr. Davidson Saunders Protein [Mass/Vol] 6.9 g/dL Normal 6.1-8.2 [facility] Comment on above: Performed By: #### C MP ####[facility] [address] [place] [address]Dr. Davidson Saunders Sodium [Moles/Vol] 142 mmol/L Normal 137-145 [facility] Comment on above: Performed By: #### C MP ####[facility] [address] [place], [place] [address]Rf. Davidson Saunders Urea nitrogen [Mass/Vol] 24.0 mg/dL Critically high 7.0-18.0 [facility] Comment on above: Performed By: #### C MP ####[facility] [address] [place], [place] [address]Yp. Davidson Saunders Urea nitrogen/Creatinine [Mass ratio] 14.9 mg/mg Normal [facility] Comment on above: Performed By: #### C MP ####[facility] [address] [place], [place] [address]Un. Davidson Saunders US CAROTID ART BILon 022 US CAROTID ART KWAME EXAMINATION: US CAROTID ART KWAME HISTORY: H/O: TIA COMPARISON: No relevant comparison available. TECHNIQUE: Duplex Doppler ultrasound analysis of carotid and vertebral arteries. . Bilateral carotid arterial duplex examination was performed using B-mode, color flow and spectral analysis. Carotid stenosis is reported according to validated velocity parameters, similar to NASCET criteria. FINDINGS: RIGHT CAROTID ARTERY Moderate to marked atherosclerotic plaque Subclavian: PSV: 165.0 cm/s cm/s EDV: 14.5 cm/s cm/s CCA: Prox: PSV: 131.9 cm/s cm/s EDV: 21.5 cm/s cm/s Mid: PSV: 91.4 cm/s cm/s EDV: 12.4 cm/s cm/s Distal: PSV: 92.7 cm/s cm/s EDV: 15.0 cm/s cm/s BULB: PSV: 143.1 cm/s cm/s EDV: 46.5 cm/s cm/s ICA: Prox: PSV: 154.9 cm/s cm/s EDV: 42.6 cm/s cm/s Mid: PSV: 150.8 cm/s cm/s EDV: 30.7 cm/s cm/s Distal: PSV: 111.4 cm/s cm/s EDV: 22.8 cm/s cm/s ECA: PSV: 117.3 cm/s cm/s EDV: 0.0 cm/s cm/s VERTEBRAL: PSV: 34.3 cm/s cm/s EDV: 5.8 cm/s cm/s ICA/CCA ratio: PSV: 1.7 EDV: 2.8 LEFT CAROTID ARTERY Moderate to marked atherosclerotic plaque with maximum area of reduction in the ICA is 72%. Carotid stent visualized Subclavian: PSV: 143.8 cm/s cm/s EDV: 13.7 cm/s CCA: Prox: PSV: 116.1 cm/s cm/s EDV: 16.0 cm/s Mid: PSV: 120.9 cm/s cm/s EDV: 12.8 cm/s Distal: PSV: 89.6 cm/s cm/s EDV: 12.7 cm/s BULB: PSV: 90.3 cm/s cm/s EDV: 16.0 cm/s ICA: Prox: PSV: 106.8 cm/s cm/s EDV: 18.1 cm/s Mid: PSV: 106.9 cm/s cm/s EDV: 22.8 cm/s Distal: PSV: 60.7 cm/s cm/s EDV: 13.6 cm/s ECA: PSV: 135.8 cm/s cm/s EDV: 0.0 cm/s VERTEBRAL: PSV: 60.9 cm/s cm/s EDV: 15.6 cm/s ICA/CCA ratio: PSV: 0.9 EDV: 1.8 IMPRESSION: Flow velocities suggests 0-49% flow stenosis in the right internal carotid artery Maximum area of reduction identified in the proximal left internal carotid artery of 72% Spectral Doppler US Thresholds (Reference: Nakul EG, et al. Radiology 2000; 214:247-252) Stenosis (%) PSV (cm/sec) VICA/VCCA 0-49 <150 <2.5 50-69 150-225 2.5-4.0 >70 >225 >4.0 Electronically authenticated by: ABHI BECERRIL Date: 2021-08-12 13:09 Normal [facility] CBC AUTO DIFFon 08-11-2021 BASO # 0.1 103/ul Normal 0.0-0.1 [facility] Comment on above: Performed By: #### A 1C #### [facility] [address] [place] [address] Dr. Davidson Saunders Basophils/100 WBC (Bld) 0.9 % Normal 0.2-2.0 [facility] Comment on above: Performed By: #### A 1C #### [facility] [address] [place] [address] Dr. Davidson Saunders EO # 0.3 103/ul Normal 0.0-0.7 [facility] Comment on above: Performed By: #### A 1C #### [facility] [address] [place] [address] Dr. Davidson Saunders Eosinophils/100 WBC (Bld) 3.1 % Normal 0.9-7.0 [facility] Comment on above: Performed By: #### A 1C #### [facility] [address] [place] [address] Dr. Davidson Saunders Erythrocyte distribution width (RBC) [Ratio] 12.8 % Normal 11.0-15.0 [facility] Comment on above: Performed By: #### A 1C #### [facility] [address] [place] [address] Dr. Davidson Saunders Hematocrit (Bld) [Volume fraction] 32.8 % Critically low 36.0-48.0 [facility] Comment on above: Performed By: #### A 1C #### [facility] [address] [place] [address] Dr. Davidson Saunders Hemoglobin (Bld) [Mass/Vol] 11.1 g/dL Critically low 12.0-16.0 [facility] Comment on above: Performed By: #### A 1C #### [facility] [address] [place] [address] Dr. Davidson Saunders IG # 0.06 10e3/ul Critically high 0.00-0.03 [facility] Comment on above: Performed By: #### A 1C #### [facility] [address] [place] [address] Dr. Davidson Saunders IG % 0.5 % Normal 0.0-0.5 [facility] Comment on above: Performed By: #### A 1C #### [facility] [address] [place] [address] Dr. Davidson Saunders LYMPH # 2.6 103/ul Normal 1.2-3.8 [facility] Comment on above: Performed By: #### A 1C #### [facility] [address] [place] [address] Dr. Davidson Saunders Lymphocytes/100 WBC (Bld) 23.6 % Normal 20.5-60.0 [facility] Comment on above: Performed By: #### A 1C #### [facility] [address] [place] [address] Dr. Davidson Saunders MANUAL DIFF REQ NO Normal [facility] Comment on above: Performed By: #### A 1C #### [facility] [address] [place] [address] Dr. Davidson Saunders MCH (RBC) [Entitic mass] 29.2 pg Normal 26.7-34.0 [facility] Comment on above: Performed By: #### A 1C #### [facility] [address] [place] [address] Dr. Davidson Saunders MCHC (RBC) [Mass/Vol] 33.8 g/dL Normal 29.9-35.2 [facility] Comment on above: Performed By: #### A 1C #### [facility] [address] [place] [address] Dr. Davidson Saunders MCV (RBC) [Entitic vol] 86.3 fL Normal 81.0-99.0 [facility] Comment on above: Performed By: #### A 1C #### [facility] [address] [place] [address] Dr. Davidson Saunders MONO # 0.9 103/ul Critically high 0.3-0.8 [facility] Comment on above: Performed By: #### A 1C #### [facility] [address] [place] [address] Dr. Davidson Saunders Monocytes/100 WBC (Bld) 7.9 % Normal 1.7-12.0 [facility] Comment on above: Performed By: #### A 1C #### [facility] [address] [place] [address] Dr. Davidson Saunders NEUT # 7.1 103/ul Critically high 1.4-6.5 [facility] Comment on above: Performed By: #### A 1C #### [facility] [address] [place] [address] Dr. Davidson Saunders Neutrophils/100 WBC (Bld) 64.0 % Normal 43.0-75.0 [facility] Comment on above: Performed By: #### A 1C #### [facility] [address] [place] [address] Dr. Davidson Saunders Platelet mean volume (Bld) [Entitic vol] 8.7 fL Critically low 9.5-13.5 [facility] Comment on above: Performed By: #### A 1C #### [facility] [address] [place] [address] Dr. Davidson Saunders PLT 312 103/ul Normal 150-450 [facility] Comment on above: Performed By: #### A 1C #### [facility] [address] [place] [address] Dr. Davidson Saunders RBC 3.80 106/ul Critically low 4.20-5.40 [facility] Comment on above: Performed By: #### A 1C #### [facility] [address] [place] [address] Dr. Davidson Saunders WBC 11.1 103/ul Critically high 4.0-11.0 [facility] Comment on above: Performed By: #### A 1C #### [facility] [address] [place] [address] [address] STROKE HEAD WOon 08-12-19 CT STROKE HEAD WO EXAMINATION: CT STROKE HEAD WO HISTORY: Dizziness COMPARISON: 08/01/2019. TECHNIQUE: CT examination of the head without IV contrast. Dose reduction techniques were achieved by using automated exposure control and/or adjustment of mA and/or kV according to patient size and/or use of iterative reconstruction technique. FINDINGS: Cortical calcifications right temporal lobe, unchanged. Underlying old infarct right temporal and right occipital lobe with associated volume loss and encephalomalacia consistent with old right MCA distribution infarct. Mild-moderate bilateral chronic microvascular ischemic change. Old right basal ganglia lacunar infarct. No midline shift, mass effect or intracranial hemorrhage. The mastoid air cells and visualized paranasal sinuses are clear. IMPRESSION: 1. No acute intracranial process is identified. 2. Old cortical dystrophic calcifications right temporal lobe. Underlying old infarct of the right temporal and right occipital lobes with associated volume loss and encephalomalacia consistent with old right MCA distribution infarct. Old right basal ganglia lacunar infarct. Critical results were called by Dr. Martha Sahni to BRANT Peters At 08/11/2021 4:36 PM EDT. Electronically authenticated by: MARTHA SAHNI Date: 2021-08-11 16:43 Normal [facility] CULTURE URINEon 08-11-2021 CULTURE URINE Culture Observations : MODERATE GROWTH OF MIXED GENITAL ROSEANNA. NO POTENTIAL PATHOGENS SEEN. Normal [facility] Comment on above: Performed By: #### U RCX #### [facility] [address] [place], [place] [address] Dr. Davidson Saunders Covid-19 PCR (CVDTB)on 07-22 SARS-CoV-2 (COVID-19) RNA SAE+probe Ql (Unsp spec) Not detected Normal NOT DETECTED [facility] Comment on above: Result Comment: This test is not yet approved or cleared by the [place] FDA. When there are no FDA-approved or cleared tests available, and other criteria are met, FDA can make tests available under an emergency access mechanism called an Emergency Use Authorization (EUA). The EUA for this test is supported by the Commercial [employer] Specialist of Health and Human Service's (HHS's) declaration that circumstances exist to justify the emergency use of in vitro diagnostics for the detection and/or diagnosis of the virus that causes COVID-19. This EUA will remain in effect (meaning this test can be used) for the duration of the COVID-19 declaration justifying emergency of IVDs, unless it is terminated or revoked by FDA (after which the test may no longer be used). When diagnostic testing is negative, the possibility of a false negative should be considered in the context of a patient's recent exposures and the presence of clinical signs and symptoms consistent with SARS-CoV-2. Performed By: #### C VDTBH ####[facility] [address] [place], [place] [address]DcDr. Davidson Saundres ER URINE PROFILEon 2 Bilirubin Ql (U) Negative Normal NEGATIVE [facility] Comment on above: Performed By: #### A 1C #### [facility] [address] [place] [address] Dr. Davidson Saunders Clarity (U) CLEAR Normal CLEAR [facility] Comment on above: Performed By: #### A 1C #### [facility] [address] [place] [address] Dr. Davidson Saunders Color (U) LT. YELLOW Normal YELLOW [facility] Comment on above: Performed By: #### A 1C #### [facility] [address] [place] [address] Dr. Davidson Saunders ERUAHMayank A micrscopic examination will be performed if indicated. Normal [facility] Comment on above: Performed By: #### A 1C #### [facility] [address] [place] [address] Dr. Davidson Saunders Glucose Ql (U) Negative Normal NEGATIVE [facility] Comment on above: Performed By: #### A 1C #### [facility] [address] [place] [address] Dr. Davidson Saunders Hemoglobin Ql (U) Negative Normal NEGATIVE [facility] [place] Comment on above: Performed By: #### A 1C #### [facility] [address] [place] [address] Dr. Davidson Saunders Ketones Ql (U) Negative Normal NEGATIVE [facility] Comment on above: Performed By: #### A 1C #### [facility] [address] [place] [address] Dr. Davidson Saunders LEUKOCYTES SMALL Abnormal NEGATIVE [facility] Comment on above: Performed By: #### A 1C #### [facility] [address] [place] [address] Dr. Davidson Saunders Nitrite Ql (U) Negative Normal NEGATIVE [facility] Comment on above: Performed By: #### A 1C #### [facility] [address] [place] [address] Dr. Davidson Saunders pH (U) 7.0 [pH] Normal 5-9 [facility] Comment on above: Performed By: #### A 1C #### [facility] [address] [place] [address] Dr. Davidson Saunders SPEC GRAVITY 1.010 Normal 1.005-<=1.025 [facility] Comment on above: Performed By: #### A 1C #### [facility] [address] [place] [address] Dr. Davidson Saunders UA PROTEIN Negative Normal NEGATIVE/ TRACE [facility] Comment on above: Performed By: #### A 1C #### [facility] [address] [place] [address] Dr. Davidson Saunders UR MICRO IND INDICATED Normal [facility] Comment on above: Performed By: #### A 1C #### [facility] [address] [place] [address] Dr. Davidson Saunders Urobilinogen Qn (U) 0.2 {Balaji'U}/dL Normal 0.2 - 1. 0 [facility] Comment on above: Performed By: #### A 1C #### [facility] [address] [place] [address] Dr. Davidson Saunders LACTATE/LACTIC ACIDon 2021 Lactate [Moles/Vol] 1.3 mmol/L Normal 0.7-2.0 [facility] Comment on above: Performed By: #### P OCGLUC #### [facility] [address] [place] [address] Dr. Davidson Saunders PROF 14(COMP METB)on 022 Albumin [Mass/Vol] 4.0 g/dL Normal 3.4-5.0 [facility] Comment on above: Performed By: #### P OCGLUC #### [facility] [address] [place] [address] Dr. Davidson Saunders Albumin/Globulin [Mass ratio] 1.0 {ratio} Normal [facility] Comment on above: Performed By: #### P OCGLUC #### [facility] [address] [place] [address] Dr. Davidson Saunders ALP [Catalytic activity/Vol] 117 U/L Critically high 46-116 [facility] Comment on above: Performed By: #### P OCGLUC #### [facility] [address] [place] [address] [address] Davidson Saunders ALT [Catalytic activity/Vol] 26 U/L Normal 14-59 [facility] Comment on above: Performed By: #### P OCGLUC #### [facility] [address] [place] [address] [address] Davidson Saunders Anion gap [Moles/Vol] 12.5 mmol/L Normal [facility] Comment on above: Performed By: #### P OCGLUC #### [facility] [address] [place] [address] [address] Davidson Saunders AST [Catalytic activity/Vol] 15 U/L Normal 15-37 [facility] Comment on above: Performed By: #### P OCGLUC #### [facility] [address] [place] [address] [address] Davidson Saunders Bilirubin [Mass/Vol] 0.3 mg/dL Normal 0.2-1.3 [facility] Comment on above: Performed By: #### P OCGLUC #### [facility] [address] [place] [address] [address] Davidson Saunders Calcium [Mass/Vol] 9.1 mg/dL Normal 8.5-10.1 [facility] Comment on above: Performed By: #### P OCGLUC #### [facility] [address] [place] [address] [address] Davidson Saunders Chloride [Moles/Vol] 102 mmol/L Normal 98-107 [facility] Comment on above: Performed By: #### P OCGLUC #### [facility] [address] [place] [address] [address] Davidson Saunders CO2 [Moles/Vol] 28.3 mmol/L Normal 22.0-30.0 [facility] Comment on above: Performed By: #### P OCGLUC #### [facility] [address] [place] [address] [address] Davidson Saunders Creatinine [Mass/Vol] 1.95 mg/dL Critically high 0.52-1.04 [facility] Comment on above: Performed By: #### P OCGLUC #### [facility] [address] [place] [address] [address] Davidson Saunders EGFR-AF EQUATORIAL GUINEAN 31 mL/min/1.73m2 Critically low >=60 [facility] Comment on above: Performed By: #### P OCGLUC #### [facility] [address] [place] [address] [address] Davidson Saunders EGFR-NON AF EQUATORIAL GUINEAN 25 mL/min/1.73m2 Critically low >=60 [facility] Comment on above: Performed By: #### P OCGLUC #### [facility] [address] [place] [address] [address] Davidson Saunders Globulin (S) [Mass/Vol] 3.9 g/dL Normal [facility] Comment on above: Performed By: #### P OCGLUC #### [facility] [address] [place] [address] [address] Davidson Saunders Glucose [Mass/Vol] 83 mg/dL Normal 74-106 [facility] Comment on above: Performed By: #### P OCGLUC #### [facility] [address] [place] [address] [address] Davidson Saunders Potassium [Moles/Vol] 4.8 mmol/L Normal 3.4-5.0 [facility] Comment on above: Performed By: #### P OCGLUC #### [facility] [address] [place] [address] [address] Davidson Saunders Protein [Mass/Vol] 7.9 g/dL Normal 6.1-8.2 [facility] Comment on above: Performed By: #### P OCGLUC #### [facility] [address] [place] [address] [address] Davidson Saunders Sodium [Moles/Vol] 138 mmol/L Normal 137-145 [facility] Comment on above: Performed By: #### P OCGLUC #### [facility] [address] [place] [address] [address] Davidson Saunders Urea nitrogen [Mass/Vol] 25.0 mg/dL Critically high 7.0-18.0 [facility] Comment on above: Performed By: #### P OCGLUC #### [facility] [address] [place] [address] Dr. Davidson Saunders Urea nitrogen/Creatinine [Mass ratio] 12.8 mg/mg Normal [facility] Comment on above: Performed By: #### P OCGLUC #### [facility] [address] [place] [address] Dr. Davidson Saunders PROTIMEon 08-11-2021 INR Coag (PPP) [Relative time] 0.95 {INR} Normal [facility] Comment on above: Performed By: #### P OCGLUC #### [facility] [address] [place] [address] Dr. Davidson Saunders INR GUIDELINES SEE BELOW Normal [facility] Comment on above: Result Comment: CAMILLE RED INR: 2.0 - 3.0 CONDITIONS NOT LISTED BELOW 2.5 - 3.5 FOR PROSTHETIC HEART VALVE REPLACEMENT 2.5 - 3.5 RECURRENT THROMBOSIS Performed By: #### P OCGLUC #### [facility] [address] [place] [address] Dr. Davidson Saunders PT Coag (PPP) [Time] 10.3 s Normal 9.0-11.6 [facility] Comment on above: Performed By: #### P OCGLUC #### [facility] [address] [place] [address] Dr. Davidson Saunders PTTon 08-11-2021 aPTT Coag (Bld) [Time] 24.8 s Normal 22.3-36.2 [facility] Comment on above: Performed By: #### P OCGLUC #### [facility] [address] [place] [address] Dr. Davidson Saunders TROPONIN, HIGH SENSITIVITYon 08-11-2021 HSTROP 14.1 pg/mL Normal 4.0-35.5 [facility] Comment on above: Result Comment: CUT- OFF POINTS HAVE BEEN ESTABLISHED BASED ON THE FOURTH UNIVERSAL DEFINITIONS OF MYOCARDIAL INFARCTION. THE UPPER REFERENCE LIMIT (URL) OF TROPONIN, DEFINED THE 99TH PERCENTILE OF cTnI DISTRIBUTION IN A REFERENCE POPULATION, HAS BEEN CONFIRMED THE DECISION THRESHOLD FOR TX DIAGNOSIS. Performed By: #### P OCGLUC #### [facility] [address] [place] [address] Dr. Davidson Saunders TSHon 08-11-2021 TSH 0.082 uIU/mL Critically low 0.470-4.680 [facility] Comment on above: Performed By: #### T SH #### [facility] [address] [place] [address] Dr. Davidson Saunders TSH RANGE SEE BELOW Normal [facility] Comment on above: Result Comment: <0.3 4 UIU/ml HYPERTHYROID 0.34-5.60 UIU/ml EUTHYROID >5.60 UIU/ml HYPOTHYROID Performed By: #### T SH #### [facility] [address] [place] [address] Dr. Davidson Saunders URINE MICROSCOPIC ONLYon BACTERIA NONE SEEN Normal NONE SEEN [facility] Comment on above: Performed By: #### A 1C #### [facility] [address] [place] [address] Dr. Davidson Saunders Bacteria identified Cx Nom (U) INDICATED Normal [facility] Comment on above: Performed By: #### A 1C #### [facility] [address] [place] [address] Dr. Davidson Saunders CAST NONE SEEN Normal NONE SEEN [facility] Comment on above: Performed By: #### A 1C #### [facility] [address] [place] [address] Dr. Davidson Saunders Crystals LM Nom (Urine sed) NONE SEEN Normal NONE SEEN [facility] Comment on above: Performed By: #### A 1C #### [facility] [address] [place] [address] Dr. Davidson Saunders Epithelial cells LM Ql (Urine sed) FEW Abnormal NONE SEEN /RARE [facility] Comment on above: Performed By: #### A 1C #### [facility] [address] [place] [address] Dr. Davidson Saunders MUCOUS NONE SEEN Normal NONE SEEN [facility] Comment on above: Performed By: #### A 1C #### [facility] [address] [place] [address] Dr. Davidson Saunders RBC NONE SEEN Abnormal 0-2 [facility] Comment on above: Performed By: #### A 1C #### [facility] [address] [place], [place] [address] Dr. Davidson Saunders WBC 2-5 Abnormal NONE SEEN [facility] Comment on above: Performed By: #### A 1C #### [facility] [address] [place], [place] [address] Dr. Davidson Saunders XR CHEST 1 Von 08-11-2021 XR CHEST 1 V EXAMINATION: XR CHES T 1 V HISTORY: Dizziness COMPARISON: 02/17/2021 TECHNIQUE: AP portable erect FINDINGS: LUNGS: Linear opacity left lateral midlung, stable from the prior exam. Scarring is favored. No new focal parenchymal infiltrates VASCULATURE: No increased pulmonary vasculature. PLEURA: No pneumothorax, effusion, or pleural thickening. CARDIAC: No cardiomegaly or cardiac silhouette abnormality. MEDIASTINUM: No visible mass or adenopathy. Median sternotomy closure devices BONES: No fracture or visible bone lesion. OTHER: Negative. IMPRESSION: No acute disease. Electronically authenticated by: ABHI BECERRIL Date: 2021-08-11 16:39 Normal [facility] SCREENING MAMMOGRAM W/ALEX, BILATERAL*on 05-26-2021 SCREENING MAMMOGRAM W/ALEX, BILATERAL* COMPARISON: Dating back to November 18, 2011 TECHNIQUE: 2D and 3D Tomosynthesis of the right and left breasts was performed. FINDINGS: Breast composition demonstrates scattered fibroglandular densities. Stable. Typically benign calcifications. No suspicious microcalcifications, asymmetry, architectural distortion or associated features are present. IMPRESSION: BI RADS 2 : BENIGN MAMMOGRAM Board Certified Radiologist. Accredited by the ACR and FDA. MAMMOGRAPHY IS VERY IMPORTANT TO YOUR HEALTH. THE CURRENT [employer] OF [employer] AND [employer]HENS[employer]WORK GUIDELINES RECOMMENDS ANNUAL MAMMOGRAPHY BEGINNING AT AGE 40. THIS FACILITY USES A REMINDER SYSTEM TO ENSURE ALL PATIENTS RECEIVE REMINDER NOTIFICATIONS AT THE APPROPRIATE TIME BASED ON THE RECOMMENDATIONS OF THIS EXAM. Report reported and signed by Shant Altman on 05/27/2021 0934 Normal [facility] Insurance Sales Agent XR Bone Density (DEXA)on XR Bone Density (DEXA) EXAM: DUAL FEMUR BONE DENSITY FINDINGS: RegionBMDYoung-AdultA ge-Matched Total(g/cm2)(%)T-Scor e(%)Z-Score Mean0.25967 -1.4110 0.6 Impression: The mean BMD and corresponding T-score indicated above indicate Low Bone Mass (Osteopenia) and places the patient at a mild to moderate increased risk for fracture. There may be a future risk of developing osteoporosis. Comment: The T-score is the primary focus of the interpretation of a patient???s bone mineral density measurement. The T-score is the number of standard deviations an individual is above or below the mean value for a young female having normal bone mass. The WHO defines osteoporosis based on the T-score value??? +1.0 to ???0.9 : Normal bone mass -1.0 to -2.5 : Osteopenia and thus may be at future risk of fracture -2.6 to ???5 : Osteoporosis and ???at significantly increased risk of fracture??? A Z-Score of -2.0 or lower is defined as ???below the expected range for age??? and a Z-Score above -2.0 is ???within the expected range for age.??? Osteoporosis cannot be diagnosed in men under the age of 50 on the basis of BMD alone. Per 2019 ISCD guidelines, Z-Scores (not T-Scores) are preferred when reporting data in premenopausal females and males less than 50 years of age. EXAM: AP LUMBAR BONE DENSITY FINDINGS: RegionBMDYoung-AdultA ge-Matched Total(g/cm2)(%)T-Scor e(%)Z-Score L1-L41.064348 1.76589.1 Impression: The mean BMD and corresponding T-score indicated above indicate Normal Bone Mass and places the patient no significant risk for fracture. This information can serve as a baseline with which to compare future studies. Comment: The T-score is the primary focus of the interpretation of a patient???s bone mineral density measurement. The T-score is the number of standard deviations an individual is above or below the mean value for a young female having normal bone mass. The WHO defines osteoporosis based on the T-score value??? +1.0 to ???0.9 : Normal bone mass -1.0 to -2.5 : Osteopenia and thus may be at future risk of fracture -2.6 to ???5 : Osteoporosis and ???at significantly increased risk of fracture??? A Z-Score of -2.0 or lower is defined as ???below the expected range for age??? and a Z-Score above -2.0 is ???within the expected range for age.??? Osteoporosis cannot be diagnosed in men under the age of 50 on the basis of BMD alone. Per 2019 ISCD guidelines, Z-Scores (not T-Scores) are preferred when reporting data in premenopausal females and males less than 50 years of age. Report reported and signed by Shant Altman on 05/26/2021 1530 Normal [facility] Insurance Sales Agent APTTon 07-24-2019 aPTT Coag (Bld) [Time] 37.2 s High 20.5-30.5 [facility] Comment on above: Performed By: #### C DP, PFA, CP, GLYHGB #### [facility] [employer] [facility] [place], [place] [phone] Corrosion Control Specialist: Savage Jacob MD aPTT Coag (Bld) [Time] 37.2 s High [facility], [place] Basic Metabolic Panelon Anion gap [Moles/Vol] 11 mmol/L 9 - 17 mmol/L [place] Bun/Cre Ratio NOT REPORTED [place] Calcium [Mass/Vol] 8.4 mg/dL Low 8.6 - 10. 4 mg/dL [place] Chloride [Moles/Vol] 104 mmol/L 98 - 10 7 mmol/L [place] CO2 [Moles/Vol] 26 mmol/L 20 - 31 mmol/L [place] Creatinine [Mass/Vol] 1.21 mg/dL High 0.5 - 0.9 mg/dL [place] GFR 53 mL/min Low >60 [facility], [place] GFR Comment [place] GFR Non- 44 mL/min Low >60 [place] GFR Staging NOT REPORTED [place], [place] Glucose [Mass/Vol] 75 mg/dL 70 - 99 mg/dL [facility], [place] Interpretation and review of laboratory results Abnormal [place] Potassium [Moles/Vol] 4.1 mmol/L 3.7 - 5.3 mmol/L [place] Sodium [Moles/Vol] 141 mmol/L 135 - 144 mmol/L [place] Urea nitrogen [Mass/Vol] 26 mg/dL High 8 - 23 mg/dL [place] Basic Metabolic Profon 07-23 (cont.) Normal [facility] Comment on above: Result Comment: Aver age GFR for 70 or more years old: 75 mL/min/1.73sq m Chronic Kidney Disease: <60 mL/min/1.73sq m Kidney failure: <15 mL/min/1.73sq m eGFR calculated using average adult body mass. Additional eGFR calculator available at: http://www.Dibsie/multiple_crcl_2011.htm Performed By: #### C DP, PFA, CP, GLYHGB #### [facility] [employer] [address] [place] [address] Corrosion Control Specialist: Savage Jacob MD Anion gap [Moles/Vol] 11 mmol/L Normal 9-17 [facility] Comment on above: Performed By: #### C DP, PFA, CP, GLYHGB #### [facility] [employer] [address] [place] [phone] Corrosion Control Specialist: Savage Jacob MD Calcium [Mass/Vol] 8.4 mg/dL Low 8.6-10.4 [facility] Comment on above: Performed By: #### C DP, PFA, CP, GLYHGB #### [facility] [employer] [address] [place] [address] Corrosion Control Specialist: Savage Jacob MD Chloride [Moles/Vol] 104 mmol/L Normal 98-107 [facility] Comment on above: Performed By: #### C DP, PFA, CP, GLYHGB #### [facility] [address] [place] [address] [phone] Corrosion Control Specialist: Savage Jacob MD CO2 [Moles/Vol] 26 mmol/L Normal 20-31 [facility] Comment on above: Performed By: #### C DP, PFA, CP, GLYHGB #### [facility] [employer] [address] [place] [address] Corrosion Control Specialist: Savage Jacob MD Creatinine [Mass/Vol] 1.21 mg/dL High 0.50-0.90 [facility] Comment on above: Performed By: #### C DP, PFA, CP, GLYHGB #### [facility] [employer] [address] [place] [address] Corrosion Control Specialist: Savage Jacob MD GFR, Amer 53 mL/min Low >60 [facility] Comment on above: Performed By: #### C DP, PFA, CP, GLYHGB #### [facility] [employer] [address] [place] [phone] Corrosion Control Specialist: Savage Jacob MD GFR,non Amer 44 mL/min Low >60 [facility] Comment on above: Performed By: #### C DP, PFA, CP, GLYHGB #### [facility] [employer] [address] [place] [phone] Corrosion Control Specialist: Savage Jacob MD Glucose [Mass/Vol] 75 mg/dL Normal 70-99 [facility] Comment on above: Performed By: #### C DP, PFA, CP, GLYHGB #### [facility] [employer] [address] [place] [phone] Corrosion Control Specialist: Savage Jacob MD Potassium [Moles/Vol] 4.1 mmol/L Normal 3.7-5.3 [facility] Comment on above: Performed By: #### C DP, PFA, CP, GLYHGB #### [facility] [employer] [address] [place] [address] Corrosion Control Specialist: Savage Jacob MD Sodium [Moles/Vol] 141 mmol/L Normal 135-144 [facility] Comment on above: Performed By: #### C DP, PFA, CP, GLYHGB #### [address] [address] Corrosion Control Specialist: Savage Jacob MD Urea nitrogen [Mass/Vol] 26 mg/dL High 8- [facility] Comment on above: Performed By: #### C DP, PFA, CP, GLYHGB #### [address] [address] Corrosion Control Specialist: Savage Jacob MD BUN/CRE Ratio NOT REPORTED Normal - [facility] Comment on above: Performed By: #### C DP, PFA, CP, GLYHGB #### [address] [address] Corrosion Control Specialist: Savage Jacob MD Staging: NOT REPORTED Normal [facility] Comment on above: Performed By: #### C DP, PFA, CP, GLYHGB #### [facility] [employer] [address] [place] [address] Corrosion Control Specialist: Savage Jacob MD [facility] 07-24-2019 Erythrocyte distribution width (RBC) [Ratio] 15.4 % High 11.8-14.4 [facility] Comment on above: Performed By: #### C DP, PFA, CP, GLYHGB #### [address] [address] Corrosion Control Specialist: Savage Jacob MD Hematocrit (Bld) [Volume fraction] 29.2 % Low 36.3-47.1 [facility] Comment on above: Performed By: #### C DP, PFA, CP, GLYHGB #### [address] [address] Corrosion Control Specialist: Savage Jacob MD Hemoglobin (Bld) [Mass/Vol] 8.4 g/dL Low 11.9-15.1 [facility] Comment on above: Performed By: #### C DP, PFA, CP, GLYHGB #### [address] [address] Corrosion Control Specialist: Savage Jacob MD MCH (RBC) [Entitic mass] 28.8 pg Normal 25.2-33.5 [facility] Comment on above: Performed By: #### C DP, PFA, CP, GLYHGB #### [place] [address] Corrosion Control Specialist: Savage Jacob MD MCHC (RBC) [Mass/Vol] 28.8 g/dL Normal 28.4-34.8 [facility] Comment on above: Performed By: #### C DP, PFA, CP, GLYHGB #### [place] [address] Corrosion Control Specialist: Savage Jacob MD MCV (RBC) [Entitic vol] 100.0 fL Normal 82.6-102.9 [facility] Comment on above: Performed By: #### C DP, PFA, CP, GLYHGB #### [place] [address] Corrosion Control Specialist: Savage Jacob MD NRBC Automated 0.0 per 100 WBC Normal 0.0 [facility] Comment on above: Performed By: #### C DP, PFA, CP, GLYHGB #### [place] [address] Corrosion Control Specialist: Savage Jacob MD Platelet mean volume (Bld) [Entitic vol] 9.7 fL Normal 8.1-13.5 [facility] Comment on above: Performed By: #### C DP, PFA, CP, GLYHGB #### [place] [address] Corrosion Control Specialist: Savage Jacob MD Platelets (Bld) [#/Vol] 207 10*3/uL Normal 138-453 [facility] Comment on above: Performed By: #### C DP, PFA, CP, GLYHGB #### [facility] [employer] [address] [place] [address] Corrosion Control Specialist: Savage Jacob MD RBC (Bld) [#/Vol] 2.92 10*6/uL Low 3.95-5.11 [facility] Comment on above: Performed By: #### C DP, PFA, CP, GLYHGB #### [facility] [employer] [address] [place], [place] [phone] Corrosion Control Specialist: Savage Jacob MD WBC (Bld) [#/Vol] 7.8 10*3/uL Normal 3.5-11.3 [facility] Comment on above: Performed By: #### C DP, PFA, CP, GLYHGB #### [facility] [employer] [address] [place] [phone] Corrosion Control Specialist: Savage Jacob MD Erythrocyte distribution width (RBC) [Ratio] 15.4 % High 11.8 - 14.4 % [place] Hematocrit (Bld) [Volume fraction] 29.2 % Low 36.3 - 47.1 % [place] Hemoglobin (Bld) [Mass/Vol] 8.4 g/dL Low 11.9 - 15.1 g/dL [place] Interpretation and review of laboratory results Abnormal [place] MCH (RBC) [Entitic mass] 28.8 pg 25.2 - 33.5 pg [place] MCHC (RBC) [Mass/Vol] 28.8 g/dL 28.4 - 34.8 g/dL [place] MCV (RBC) [Entitic vol] 100.0 fL 82.6 - 102.9 fL [place] Platelet mean volume (Bld) [Entitic vol] 9.7 fL 8.1 - 13.5 fL [place], [place] Platelets (Bld) [#/Vol] 207 10*3/uL [place] RBC (Bld) [#/Vol] 2.92 10*6/uL Low 3.95 - 5.1 1 m/uL [place] WBC (Bld) [#/Vol] 0.0 10*3/uL 0.0 per 10 0 WBC [place] WBC (Bld) [#/Vol] 7.8 10*3/uL [place] EKG 12 [place] 07-24-2019 Atrial Rate 62 BPM [place] P [place] 46 degrees [place] P-R Interval 158 ms [place] Q-T Interval 408 ms [place] QRS Duration 86 ms [place] QTc Calculation (Bazett) 414 ms [place] R [place] [address] [facility], [place] T [place] 52 degrees [place] Ventricular Rate 62 BPM [facility], [facility], [place], [place] Magnesiumon 07-24-2019 Magnesium [Mass/Vol] 2.4 mg/dL Normal 1.6-2.6 [facility] Comment on above: Performed By: #### C DP, PFA, CP, GLYHGB #### [facility] [employer] [address] [place] [address] Corrosion Control Specialist: Savage Jacob MD Magnesium [Mass/Vol] 2.4 mg/dL 1.6 - 2 .6 mg/dL [place] Otheron 07-24-2019 Interpretation and review of laboratory results Abnormal [place] POC Glucose Fingerstickon POC Glucose 103 mg/dL 65 - 105 mg/dL [place] POC Glucose 72 mg/dL 65 - 105 mg/dL [place] PTon 07-24-2019 INR Coag (PPP) [Relative time] 3.0 {INR} Normal [facility] Comment on above: Result Comment: Therapeutic Range: Moderate Anticoagulant Intensity: INR = 2.0-3.0 High Anticoagulant Intensity: INR = 2.5-3.5 Performed By: #### C DP, PFA, CP, GLYHGB #### [facility] [employer] [facility] [place], [place] [phone] Corrosion Control Specialist: Savage Jacob MD PT Coag (PPP) [Time] 29.8 s High 9.0-12.0 [facility] Comment on above: Performed By: #### C DP, PFA, CP, GLYHGB #### [address] [address] Corrosion Control Specialist: Savage Jacob MD Protime-INRon 07-24-2019 INR Coag (PPP) [Relative time] 3.0 {INR} [place] PT Coag (PPP) [Time] 29.8 s High [place], [place] APTTon 07-23-2019 aPTT Coag (Bld) [Time] 67.2 s High 20.5-30.5 [facility] Comment on above: Performed By: #### C DP, PFA, CP, GLYHGB #### [address] [phone] Corrosion Control Specialist: Savage Jacob MD aPTT Coag (Bld) [Time] 67.2 s High [place], [place] Basic Metab w/rfx MGon 07-22 (cont.) Normal [facility] Comment on above: Result Comment: Aver age GFR for 70 or more years old: 75 mL/min/1.73sq m Chronic Kidney Disease: <60 mL/min/1.73sq m Kidney failure: <15 mL/min/1.73sq m eGFR calculated using average adult body mass. Additional eGFR calculator available at: http://www.Subimage.com/multiple_crcl_2012.htm Performed By: #### C DP, PFA, CP, GLYHGB #### [address] [phone] Corrosion Control Specialist: Savage Jacob MD Anion gap [Moles/Vol] 12 mmol/L Normal 9-17 [facility] Comment on above: Performed By: #### C DP, PFA, CP, GLYHGB #### [facility] [employer] [address] [place] [address] Corrosion Control Specialist: Savage Jacob MD Calcium [Mass/Vol] 8.9 mg/dL Normal 8.6-10.4 [facility] Comment on above: Performed By: #### C DP, PFA, CP, GLYHGB #### [facility] [employer] [address] [place] [address] Corrosion Control Specialist: Savage Jacob MD Chloride [Moles/Vol] 104 mmol/L Normal 98-107 [facility] Comment on above: Performed By: #### C DP, PFA, CP, GLYHGB #### [facility] [employer] [address] [place] [phone] Corrosion Control Specialist: Savage Jacob MD CO2 [Moles/Vol] 27 mmol/L Normal 20-31 [facility] Comment on above: Performed By: #### C DP, PFA, CP, GLYHGB #### [facility] [employer] [address] [place] [phone] Corrosion Control Specialist: Savage Jacob MD Creatinine [Mass/Vol] 1.28 mg/dL High 0.50-0.90 [facility] Comment on above: Performed By: #### C DP, PFA, CP, GLYHGB #### [facility] [employer] [address] [place] [address] Corrosion Control Specialist: Savage Jacob MD GFR, Amer 50 mL/min Low >60 [facility] Comment on above: Performed By: #### C DP, PFA, CP, GLYHGB #### [facility] [employer] [address] [place] [phone] Corrosion Control Specialist: Savage Jacob MD GFR,non Amer 41 mL/min Low >60 [facility] Comment on above: Performed By: #### C DP, PFA, CP, GLYHGB #### [facility] [employer] [address] [place] [phone] Corrosion Control Specialist: Savage Jacob MD Glucose [Mass/Vol] 95 mg/dL Normal 70-99 [facility] Comment on above: Performed By: #### C DP, PFA, CP, GLYHGB #### [address] [address] Corrosion Control Specialist: Savage Jacob MD Potassium [Moles/Vol] 3.8 mmol/L Normal 3.7-5.3 [facility] Comment on above: Performed By: #### C DP, PFA, CP, GLYHGB #### [facility] [employer] [address] [place] [address] Corrosion Control Specialist: Savage Jacob MD Sodium [Moles/Vol] 143 mmol/L Normal 135-144 [facility] Comment on above: Performed By: #### C DP, PFA, CP, GLYHGB #### [facility] [employer] [address] [place] [phone] Corrosion Control Specialist: Savage Jacob MD Urea nitrogen [Mass/Vol] 33 mg/dL High 8- [facility] Comment on above: Performed By: #### C DP, PFA, CP, GLYHGB #### [facility] [employer] [address] [place] [phone] Corrosion Control Specialist: Savage Jacob MD BUN/CRE Ratio NOT REPORTED Normal - [facility] Comment on above: Performed By: #### C DP, PFA, CP, GLYHGB #### [facility] [employer] [address] [place] [phone] Corrosion Control Specialist: Savage Jacob MD Staging: NOT REPORTED Normal [facility] Comment on above: Performed By: #### C DP, PFA, CP, GLYHGB #### [facility] [employer] [address] [place] [address] Corrosion Control Specialist: Savage Jacob MD Basic Metabolic Panelon Anion gap [Moles/Vol] 14 mmol/L 9 - 17 mmol/L [place] Bun/Cre Ratio NOT REPORTED [place] Calcium [Mass/Vol] 9.0 mg/dL 8.6 - 10. 4 mg/dL [place] Chloride [Moles/Vol] 104 mmol/L 98 - 10 7 mmol/L [place] CO2 [Moles/Vol] 26 mmol/L 20 - 31 mmol/L [place] Creatinine [Mass/Vol] 1.29 mg/dL High 0.5 - 0.9 mg/dL [place] GFR 50 mL/min Low >60 [place] GFR Comment [place] GFR Non- 41 mL/min Low >60 [place] GFR Staging NOT REPORTED [place], [place] Glucose [Mass/Vol] 88 mg/dL 70 - 99 mg/dL [place], [place] Interpretation and review of laboratory results Abnormal [place] Potassium [Moles/Vol] 4.0 mmol/L 3.7 - 5.3 mmol/L [place] Sodium [Moles/Vol] 144 mmol/L 135 - 144 mmol/L [place] Urea nitrogen [Mass/Vol] 34 mg/dL High 8 - 23 mg/dL [place] Basic Metabolic Panel w/ Ref mira to MGon 07-23-2019 Anion gap [Moles/Vol] 12 mmol/L 9 - 17 mmol/L [place] Bun/Cre Ratio NOT REPORTED [place] Calcium [Mass/Vol] 8.9 mg/dL 8.6 - 10. 4 mg/dL [place] Chloride [Moles/Vol] 104 mmol/L 98 - 10 7 mmol/L [place] CO2 [Moles/Vol] 27 mmol/L 20 - 31 mmol/L [place] Creatinine [Mass/Vol] 1.28 mg/dL High 0.5 - 0.9 mg/dL [place] GFR 50 mL/min Low >60 [place] GFR Comment [place] GFR Non- 41 mL/min Low >60 [place] GFR Staging NOT REPORTED [place] Glucose [Mass/Vol] 95 mg/dL 70 - 99 mg/dL [place] Interpretation and review of laboratory results Abnormal [place] Potassium [Moles/Vol] 3.8 mmol/L 3.7 - 5.3 mmol/L [place] Sodium [Moles/Vol] 143 mmol/L 135 - 144 mmol/L [place] Urea nitrogen [Mass/Vol] 33 mg/dL High 8 - 23 mg/dL [place] Basic Metabolic Profon 07-22 (cont.) Normal [facility] Comment on above: Result Comment: Aver age GFR for 70 or more years old: 75 mL/min/1.73sq m Chronic Kidney Disease: <60 mL/min/1.73sq m Kidney failure: <15 mL/min/1.73sq m eGFR calculated using average adult body mass. Additional eGFR calculator available at: http://www.Subimage.[employer] [place]/multiple_crcl_2012.htm Performed By: #### C DP, PFA, CP, GLYHGB #### [facility] [employer] [address] [place] [phone] Corrosion Control Specialist: Savage Jacob MD Anion gap [Moles/Vol] 14 mmol/L Normal 9-17 [facility] Comment on above: Performed By: #### C DP, PFA, CP, GLYHGB #### [facility] [address] [place] [phone] Corrosion Control Specialist: Savage Jacob MD Calcium [Mass/Vol] 9.0 mg/dL Normal 8.6-10.4 [facility] Comment on above: Performed By: #### C DP, PFA, CP, GLYHGB #### [employer] [address] [place] [address] Corrosion Control Specialist: Savage Jacob MD Chloride [Moles/Vol] 104 mmol/L Normal 98-107 [facility] Comment on above: Performed By: #### C DP, PFA, CP, GLYHGB #### [address] [address] Corrosion Control Specialist: Savage Jacob MD CO2 [Moles/Vol] 26 mmol/L Normal 20-31 [facility] Comment on above: Performed By: #### C DP, PFA, CP, GLYHGB #### [address] [address] Corrosion Control Specialist: Savage Jacob MD Creatinine [Mass/Vol] 1.29 mg/dL High 0.50-0.90 [facility] Comment on above: Performed By: #### C DP, PFA, CP, GLYHGB #### [address] [address] Corrosion Control Specialist: Savage Jacob MD GFR, Amer 50 mL/min Low >60 [facility] Comment on above: Performed By: #### C DP, PFA, CP, GLYHGB #### [address] [address] Corrosion Control Specialist: Savage Jacob MD GFR,non Amer 41 mL/min Low >60 [facility] Comment on above: Performed By: #### C DP, PFA, CP, GLYHGB #### [address] [address] Corrosion Control Specialist: Savage Jacob MD Glucose [Mass/Vol] 88 mg/dL Normal 70-99 [facility] Comment on above: Performed By: #### C DP, PFA, CP, GLYHGB #### [address] [address] Corrosion Control Specialist: Savage Jacob MD Potassium [Moles/Vol] 4.0 mmol/L Normal 3.7-5.3 [facility] Comment on above: Performed By: #### C DP, PFA, CP, GLYHGB #### [address] [address] Corrosion Control Specialist: Savage Jacob MD Sodium [Moles/Vol] 144 mmol/L Normal 135-144 [facility] Comment on above: Performed By: #### C DP, PFA, CP, GLYHGB #### [address] [address] Corrosion Control Specialist: Savage Jacob MD Urea nitrogen [Mass/Vol] 34 mg/dL High 8- [facility] Comment on above: Performed By: #### C DP, PFA, CP, GLYHGB #### [address] [address] Corrosion Control Specialist: Savage Jacob MD BUN/CRE Ratio NOT REPORTED Normal 02-09 [facility] Comment on above: Performed By: #### C DP, PFA, CP, GLYHGB #### [address] [address] Corrosion Control Specialist: Savage Jacob MD Staging: NOT REPORTED Normal [facility] Comment on above: Performed By: #### C DP, PFA, CP, GLYHGB #### [address] [address] Corrosion Control Specialist: Savage Jacob MD CBCon 07-23-2019 Erythrocyte distribution width (RBC) [Ratio] 15.6 % High 11.8-14.4 [facility] Comment on above: Performed By: #### C DP, PFA, CP, GLYHGB #### [address] [address] Corrosion Control Specialist: Savage Jacob MD Hematocrit (Bld) [Volume fraction] 31.2 % Low 36.3-47.1 [facility] Comment on above: Performed By: #### C DP, PFA, CP, GLYHGB #### [address] [address] Corrosion Control Specialist: Savage Jacob MD Hemoglobin (Bld) [Mass/Vol] 9.1 g/dL Low 11.9-15.1 [facility] Comment on above: Performed By: #### C DP, PFA, CP, GLYHGB #### [address] [address] Corrosion Control Specialist: Savage Jacob MD MCH (RBC) [Entitic mass] 28.4 pg Normal 25.2-33.5 [facility] Comment on above: Performed By: #### C DP, PFA, CP, GLYHGB #### [address] [address] Corrosion Control Specialist: Savage Jacob MD MCHC (RBC) [Mass/Vol] 29.2 g/dL Normal 28.4-34.8 [facility] Comment on above: Performed By: #### C DP, PFA, CP, GLYHGB #### [place] [address] Corrosion Control Specialist: Savage Jacob MD MCV (RBC) [Entitic vol] 97.5 fL Normal 82.6-102.9 [facility] Comment on above: Performed By: #### C DP, PFA, CP, GLYHGB #### [address] [address] Corrosion Control Specialist: Savage Jacob MD NRBC Automated 0.0 per 100 WBC Normal 0.0 [facility] Comment on above: Performed By: #### C DP, PFA, CP, GLYHGB #### [address] [address] Corrosion Control Specialist: Savage Jacob MD Platelet mean volume (Bld) [Entitic vol] 9.9 fL Normal 8.1-13.5 [facility] Comment on above: Performed By: #### C DP, PFA, CP, GLYHGB #### [address] [phone] Corrosion Control Specialist: Savage Jacob MD Platelets (Bld) [#/Vol] 276 10*3/uL Normal 138-453 [facility] Comment on above: Performed By: #### C DP, PFA, CP, GLYHGB #### [facility] [employer] [address] [place] [address] [phone] Corrosion Control Specialist: Savage Jacob MD RBC (Bld) [#/Vol] 3.20 10*6/uL Low 3.95-5.11 [facility] Comment on above: Performed By: #### C DP, PFA, CP, GLYHGB #### [address] [address] Corrosion Control Specialist: Savage Jacob MD WBC (Bld) [#/Vol] 10.8 10*3/uL Normal 3.5-11.3 [facility] Comment on above: Performed By: #### C DP, PFA, CP, GLYHGB #### [facility] [employer] [address] [place] [phone] Corrosion Control Specialist: Savage Jacob MD Erythrocyte distribution width (RBC) [Ratio] 15.6 % High 11.8 - 14.4 % [place] Hematocrit (Bld) [Volume fraction] 31.2 % Low 36.3 - 47.1 % [place] Hemoglobin (Bld) [Mass/Vol] 9.1 g/dL Low 11.9 - 15.1 g/dL [place] Interpretation and review of laboratory results Abnormal [place] MCH (RBC) [Entitic mass] 28.4 pg 25.2 - 33.5 pg [place] MCHC (RBC) [Mass/Vol] 29.2 g/dL 28.4 - 34.8 g/dL [place] MCV (RBC) [Entitic vol] 97.5 fL 82.6 - 102.9 fL [place] Platelet mean volume (Bld) [Entitic vol] 9.9 fL 8.1 - 13.5 fL [place] Platelets (Bld) [#/Vol] 276 10*3/uL [place] RBC (Bld) [#/Vol] 3.20 10*6/uL Low 3.95 - 5.1 1 m/uL [place] WBC (Bld) [#/Vol] 0.0 10*3/uL 0.0 per 10 0 WBC [place] WBC (Bld) [#/Vol] 10.8 10*3/uL [place] Magnesiumon 07-23-2019 Magnesium [Mass/Vol] 2.6 mg/dL Normal 1.6-2.6 [facility] Comment on above: Performed By: #### C DP, PFA, CP, GLYHGB #### [facility] [employer] [facility] [place] [address] Corrosion Control Specialist: Savage Jacob MD Magnesium [Mass/Vol] 2.6 mg/dL 1.6 - 2 .6 mg/dL [place] Otheron 07-23-2019 Interpretation and review of laboratory results Abnormal [place] POC Glucose Fingerstickon Interpretation and review of laboratory results Abnormal [place] POC Glucose 181 mg/dL High 65 - 105 mg/dL [place] Interpretation and review of laboratory results Abnormal [place] POC Glucose 108 mg/dL High 65 - 105 mg/dL [place] Interpretation and review of laboratory results Abnormal [place] POC Glucose 187 mg/dL High 65 - 105 mg/dL [place] Interpretation and review of laboratory results Abnormal [place] POC Glucose 111 mg/dL High 65 - 105 mg/dL [place] PTon 07-23-2019 INR Coag (PPP) [Relative time] 1.3 {INR} Normal [facility] Comment on above: Result Comment: Therapeutic Range: Moderate Anticoagulant Intensity: INR = 2.0-3.0 High Anticoagulant Intensity: INR = 2.5-3.5 Performed By: #### C DP, PFA, CP, GLYHGB #### [facility] [employer] [address] [place] [address] [phone] Corrosion Control Specialist: Savage Jacob MD PT Coag (PPP) [Time] 13.6 s High 9.0-12.0 [facility] Comment on above: Performed By: #### C DP, PFA, CP, GLYHGB #### [facility] [employer] [address] [place] [address] [phone] Corrosion Control Specialist: Savage Jacob MD Phosphoruson 07-23-2019 Phosphate [Mass/Vol] 2.9 mg/dL 2.6 - 4 .5 mg/dL [place] Phosphorus, Inorg.on 020 Phosphorus, Inorg. 2.9 mg/dL Normal 2.6-4.5 [facility] Comment on above: Performed By: #### C DP, PFA, CP, GLYHGB #### [facility] [employer] [address] [place], [place] [phone] Corrosion Control Specialist: Savage Jacob MD Protime-INRon 07-23-2019 INR Coag (PPP) [Relative time] 1.3 {INR} [place] PT Coag (PPP) [Time] 13.6 s High [place] APTTon 07-22-2019 aPTT Coag (Bld) [Time] 59.4 s High 20.5-30.5 [facility] Comment on above: Performed By: #### C DP, PFA, CP, GLYHGB #### [facility] [employer] [address] [place] [address] [phone] Corrosion Control Specialist: Savage Jacob MD aPTT Coag (Bld) [Time] 59.4 s High [place] Basic Metabolic Panelon Anion gap [Moles/Vol] 14 mmol/L 9 - 17 mmol/L [place] Bun/Cre Ratio NOT REPORTED [place] Calcium [Mass/Vol] 8.9 mg/dL 8.6 - 10. 4 mg/dL [place] Chloride [Moles/Vol] 106 mmol/L 98 - 10 7 mmol/L [place] CO2 [Moles/Vol] 24 mmol/L 20 - 31 mmol/L [place] Creatinine [Mass/Vol] 1.49 mg/dL High 0.5 - 0.9 mg/dL [place] GFR 42 mL/min Low >60 [place] GFR Comment [place] GFR Non- 35 mL/min Low >60 [place] GFR Staging NOT REPORTED [place] Glucose [Mass/Vol] 105 mg/dL High 70 - 99 mg/dL [place], [place] Potassium [Moles/Vol] 3.7 mmol/L 3.7 - 5.3 mmol/L [place] Sodium [Moles/Vol] 144 mmol/L 135 - 144 mmol/L [place] Urea nitrogen [Mass/Vol] 45 mg/dL High 8 - 23 mg/dL [place] Basic Metabolic Profon 07-21 (cont.) Normal [facility] Comment on above: Result Comment: Aver age GFR for 70 or more years old: 75 mL/min/1.73sq m Chronic Kidney Disease: <60 mL/min/1.73sq m Kidney failure: <15 mL/min/1.73sq m eGFR calculated using average adult body mass. Additional eGFR calculator available at: http://[email or web address]/multiple_crcl_2012.htm Performed By: #### C DP, PFA, CP, GLYHGB #### [facility] [employer] [address] [place] [address] Corrosion Control Specialist: Savage Jacob MD Anion gap [Moles/Vol] 14 mmol/L Normal 9-17 [facility] Comment on above: Performed By: #### C DP, PFA, CP, GLYHGB #### [facility] [address] [place] [phone] Corrosion Control Specialist: Savage Jacob MD Calcium [Mass/Vol] 8.9 mg/dL Normal 8.6-10.4 [facility] Comment on above: Performed By: #### C DP, PFA, CP, GLYHGB #### [facility] [employer] [address] [place] [phone] Corrosion Control Specialist: Savage Jacob MD Chloride [Moles/Vol] 106 mmol/L Normal 98-107 [facility] Comment on above: Performed By: #### C DP, PFA, CP, GLYHGB #### [facility] [employer] [address] [place] [phone] Corrosion Control Specialist: Savage Jaocb MD CO2 [Moles/Vol] 24 mmol/L Normal 20-31 [facility] Comment on above: Performed By: #### C DP, PFA, CP, GLYHGB #### [facility] [employer] [address] [place] [phone] Corrosion Control Specialist: Savage Jacob MD Creatinine [Mass/Vol] 1.49 mg/dL High 0.50-0.90 [facility] Comment on above: Performed By: #### C DP, PFA, CP, GLYHGB #### [facility] [employer] [address] [place] [phone] Corrosion Control Specialist: Savage Jacob MD GFR, Amer 42 mL/min Low >60 [facility] Comment on above: Performed By: #### C DP, PFA, CP, GLYHGB #### [facility] [employer] [address] [place] [phone] Corrosion Control Specialist: Savage Jacob MD GFR,non Amer 35 mL/min Low >60 [facility] Comment on above: Performed By: #### C DP, PFA, CP, GLYHGB #### [facility] [employer] [address] [place] [phone] Corrosion Control Specialist: Savage Jacob MD Glucose [Mass/Vol] 105 mg/dL High 70-99 [facility] Comment on above: Performed By: #### C DP, PFA, CP, GLYHGB #### [address] [address] Corrosion Control Specialist: Savage Jacob MD Potassium [Moles/Vol] 3.7 mmol/L Normal 3.7-5.3 [facility] Comment on above: Performed By: #### C DP, PFA, CP, GLYHGB #### [address] [address] Corrosion Control Specialist: Savage Jacob MD Sodium [Moles/Vol] 144 mmol/L Normal 135-144 [facility] Comment on above: Performed By: #### C DP, PFA, CP, GLYHGB #### [address] [address] Corrosion Control Specialist: Savage Jacob MD Urea nitrogen [Mass/Vol] 45 mg/dL High 8- [facility] Comment on above: Performed By: #### C DP, PFA, CP, GLYHGB #### [address] [address] Corrosion Control Specialist: Savage Jacob MD BUN/CRE Ratio NOT REPORTED Normal - [facility] Comment on above: Performed By: #### C DP, PFA, CP, GLYHGB #### [facility] [employer] [address] [place] [phone] Corrosion Control Specialist: Savage Jacob MD Staging: NOT REPORTED Normal [facility] Comment on above: Performed By: #### C DP, PFA, CP, GLYHGB #### [facility] [employer] [address] [place] [phone] Corrosion Control Specialist: Savage Jacob MD CBCon 07-22-2019 Erythrocyte distribution width (RBC) [Ratio] 15.5 % High 11.8-14.4 [facility] Comment on above: Performed By: #### C DP, PFA, CP, GLYHGB #### [address] [address] Corrosion Control Specialist: Savage Jacob MD Hematocrit (Bld) [Volume fraction] 30.6 % Low 36.3-47.1 [facility] Comment on above: Performed By: #### C DP, PFA, CP, GLYHGB #### [place] [address] Corrosion Control Specialist: Savage Jacob MD Hemoglobin (Bld) [Mass/Vol] 9.1 g/dL Low 11.9-15.1 [facility] Comment on above: Performed By: #### C DP, PFA, CP, GLYHGB #### [place] [address] Corrosion Control Specialist: Savage Jacob MD MCH (RBC) [Entitic mass] 28.3 pg Normal 25.2-33.5 [facility] Comment on above: Performed By: #### C DP, PFA, CP, GLYHGB #### [place] [address] Corrosion Control Specialist: Savage Jacob MD MCHC (RBC) [Mass/Vol] 29.7 g/dL Normal 28.4-34.8 [facility] Comment on above: Performed By: #### C DP, PFA, CP, GLYHGB #### [address] [address] Corrosion Control Specialist: Savage Jacob MD MCV (RBC) [Entitic vol] 95.3 fL Normal 82.6-102.9 [facility] Comment on above: Performed By: #### C DP, PFA, CP, GLYHGB #### [address] [address] Corrosion Control Specialist: Savage Jacob MD NRBC Automated 0.0 per 100 WBC Normal 0.0 [facility] Comment on above: Performed By: #### C DP, PFA, CP, GLYHGB #### [address] [address] Corrosion Control Specialist: Savage Jacob MD Platelet mean volume (Bld) [Entitic vol] 9.7 fL Normal 8.1-13.5 [facility] Comment on above: Performed By: #### C DP, PFA, CP, GLYHGB #### [address] [address] Corrosion Control Specialist: Savage Jacob MD Platelets (Bld) [#/Vol] 291 10*3/uL Normal 138-453 [facility] Comment on above: Performed By: #### C DP, PFA, CP, GLYHGB #### [address] [address] Corrosion Control Specialist: Savage Jacob MD RBC (Bld) [#/Vol] 3.21 10*6/uL Low 3.95-5.11 [facility] Comment on above: Performed By: #### C DP, PFA, CP, GLYHGB #### [address] [address] Corrosion Control Specialist: Savage Jacob MD WBC (Bld) [#/Vol] 17.3 10*3/uL High 3.5-11.3 [facility] Comment on above: Performed By: #### C DP, PFA, CP, GLYHGB #### [address] [address] Corrosion Control Specialist: Savage Jacob MD Erythrocyte distribution width (RBC) [Ratio] 15.5 % High 11.8 - 14.4 % [place] Hematocrit (Bld) [Volume fraction] 30.6 % Low 36.3 - 47.1 % [place] Hemoglobin (Bld) [Mass/Vol] 9.1 g/dL Low 11.9 - 15.1 g/dL [place] Interpretation and review of laboratory results Abnormal [place] MCH (RBC) [Entitic mass] 28.3 pg 25.2 - 33.5 pg [place] MCHC (RBC) [Mass/Vol] 29.7 g/dL 28.4 - 34.8 g/dL [place] MCV (RBC) [Entitic vol] 95.3 fL 82.6 - 102.9 fL [place] Platelet mean volume (Bld) [Entitic vol] 9.7 fL 8.1 - 13.5 fL [place] Platelets (Bld) [#/Vol] 291 10*3/uL [place] RBC (Bld) [#/Vol] 3.21 10*6/uL Low 3.95 - 5.1 1 m/uL [place] WBC (Bld) [#/Vol] 0.0 10*3/uL 0.0 per 10 0 WBC [place] WBC (Bld) [#/Vol] 17.3 10*3/uL High [place] K (Potassium)on 07-22-2019 Potassium [Moles/Vol] 3.7 mmol/L Normal 3.7-5.3 [facility] Comment on above: Performed By: #### C DP, PFA, CP, GLYHGB #### [facility] [employer] [address] [place] [phone] Corrosion Control Specialist: Savage Jacob MD Magnesiumon 07-22-2019 Magnesium [Mass/Vol] 2.8 mg/dL High 1.6-2.6 [facility] Comment on above: Performed By: #### C DP, PFA, CP, GLYHGB #### [facility] [employer] [address] [place] [address] [phone] Corrosion Control Specialist: Savage Jacob MD Magnesium [Mass/Vol] 2.8 mg/dL High 1.6 - 2 .6 mg/dL [place] Otheron 07-22-2019 Interpretation and review of laboratory results Abnormal [place] Interpretation and review of laboratory results Abnormal [place] POC Glucose Fingerstickon Interpretation and review of laboratory results Abnormal [place] POC Glucose 230 mg/dL High 65 - 105 mg/dL [place] Interpretation and review of laboratory results Abnormal [place] POC Glucose 227 mg/dL High 65 - 105 mg/dL [place] POC Glucose 83 mg/dL 65 - 105 mg/dL [place] POC Glucose 97 mg/dL 65 - 105 mg/dL [place] POTASSIUMon 07-22-2019 Potassium [Moles/Vol] 3.7 mmol/L 3.7 - 5.3 mmol/L [place] PTon 07-22-2019 INR Coag (PPP) [Relative time] 1.2 {INR} Normal [facility] Comment on above: Result Comment: Therapeutic Range: Moderate Anticoagulant Intensity: INR = 2.0-3.0 High Anticoagulant Intensity: INR = 2.5-3.5 Performed By: #### C DP, PFA, CP, GLYHGB #### [facility] [address] [place] [phone] Corrosion Control Specialist: Savage Jacob MD PT Coag (PPP) [Time] 12.4 s High 9.0-12.0 [facility] Comment on above: Performed By: #### C DP, PFA, CP, GLYHGB #### [facility] [address] [place] [phone] Corrosion Control Specialist: Savage Jacob MD Protime-INRon 07-22-2019 INR Coag (PPP) [Relative time] 1.2 {INR} [place] PT Coag (PPP) [Time] 12.4 s High [place], [place] XR CHEST (SINGLE VIEW FRONTA L)on 07-22-2019 XR CHEST (SINGLE VIEW FRONTAL) EXAMINATION: ONE XRAY VIEW OF THE CHEST 07/21/2019 9:04 pm COMPARISON: 07/19/2019 HISTORY: ORDERING SYSTEM PROVIDED HISTORY: possible aspiration TECHNOLOGIST PROVIDED HISTORY: possible aspiration respiratory status Acuity: Unknown Type of Exam: Initial FINDINGS: Cardiac and mediastinal contours are stable. Left upper extremity PICC tip remains in the SVC. Increased moderate left pleural effusion with left base opacity. No definite right pleural effusion. Increased pulmonary vascular congestion and perihilar ground-glass opacity. No pneumothorax. No acute osseous abnormality. Sternotomy hardware unchanged. Aortic root stent partially obscured. IMPRESSION: 1. Increased pulmonary vascular congestion and perihilar ground-glass opacity concerning for worsening congestive heart failure. 2. Increased moderate layering left pleural effusion with left base opacity that may reflect atelectasis or pneumonia if the patient has fever or leukocytosis. Interpreted by: Morro Miranda MD Signed by: Morro Miranda MD 07/21/19 Final result Normal [facility] APTTon 07-21-2019 aPTT Coag (Bld) [Time] 56.0 s High 20.5-30.5 [facility] Comment on above: Performed By: #### C DP, PFA, CP, GLYHGB #### [facility] [employer] [address] [place] [phone] Corrosion Control Specialist: Savage Jacob MD aPTT Coag (Bld) [Time] 56.0 s High [place] Interpretation and review of laboratory results Abnormal [place] aPTT Coag (Bld) [Time] 84.1 s High 20.5-30.5 [facility] Comment on above: Performed By: #### C DP, PFA, CP, GLYHGB #### [facility] [employer] [address] [place] [phone] Corrosion Control Specialist: Savage Jacob MD aPTT Coag (Bld) [Time] 84.1 s High [place] Interpretation and review of laboratory results Abnormal [place] aPTT Coag (Bld) [Time] 70.7 s High 20.5-30.5 [facility] Comment on above: Performed By: #### C DP, PFA, CP, GLYHGB #### [facility] [address] [place] [address] Corrosion Control Specialist: Savage Jacob MD aPTT Coag (Bld) [Time] 70.7 s High [place] Anion Gap (Calc) POCon Anion gap [Moles/Vol] 12 mmol/L 7 - 16 mmol/L [place] Arterial Blood Gas, POCon Graham Test Positive [place] FIO2 15.0 [place] Mode NOT REPORTED [place] Negative Base Excess, Art NOT REPORTED [place] O2 Device/Flow/% NRB [place] POC HCO3 29.2 mmol/L High 21 - 28 mmol/L [place] P[place] O2 SAT 94 % 94 - 98 % [place]OC pCO2 45.1 [place] pCO2 Temp NOT REPORTED mm Hg [place] pH 7.419 [place] POC pH Temp NOT REPORTED [place] POC PO2 70.8 Low [place] pO2 Temp NOT REPORTED mm Hg [place] Positive Base Excess, Art 4 High [place] Pt Temp NOT REPORTED [place] Sample Site Left Radial Artery [place] TCO2 (calc), Art 31 mmol/L High 22 - 29 mmol/L [place] Basic Metabolic Panelon 06-24 Anion gap [Moles/Vol] 14 mmol/L 9 - 17 mmol/L [place] Bun/Cre Ratio NOT REPORTED [place] Calcium [Mass/Vol] 9.0 mg/dL 8.6 - 10. 4 mg/dL [place] Chloride [Moles/Vol] 103 mmol/L 98 - 10 7 mmol/L [place] CO2 [Moles/Vol] 26 mmol/L 20 - 31 mmol/L [place] Creatinine [Mass/Vol] 1.74 mg/dL High 0.5 - 0.9 mg/dL [place] GFR 35 mL/min Low >60 [place] GFR Comment [place] GFR Non- 29 mL/min Low >60 [place] GFR Staging NOT REPORTED [place] Glucose [Mass/Vol] 184 mg/dL High 70 - 99 mg/dL [place], [place] Potassium [Moles/Vol] 4.4 mmol/L 3.7 - 5.3 mmol/L [place] Sodium [Moles/Vol] 143 mmol/L 135 - 144 mmol/L [place] Urea nitrogen [Mass/Vol] 57 mg/dL High 8 - 23 mg/dL [place] Basic Metabolic Profon (cont.) Normal [facility] Comment on above: Result Comment: Aver age GFR for 70 or more years old: 75 mL/min/1.73sq m Chronic Kidney Disease: <60 mL/min/1.73sq m Kidney failure: <15 mL/min/1.73sq m eGFR calculated using average adult body mass. Additional eGFR calculator available at: http://www.[employer]/multiple_crcl_2012.htm Performed By: #### C DP, PFA, CP, GLYHGB #### [facility] [employer] [address] [place] [phone] Corrosion Control Specialist: Savage Jacob MD Anion gap [Moles/Vol] 14 mmol/L Normal 9-17 [facility] Comment on above: Performed By: #### C DP, PFA, CP, GLYHGB #### [facility] [employer] [address] [place] [phone] Corrosion Control Specialist: Savage Jacob MD Calcium [Mass/Vol] 9.0 mg/dL Normal 8.6-10.4 [facility] Comment on above: Performed By: #### C DP, PFA, CP, GLYHGB #### [facility] [address] [place] [phone] Corrosion Control Specialist: Savage Jacob MD Chloride [Moles/Vol] 103 mmol/L Normal 98-107 [facility] Comment on above: Performed By: #### C DP, PFA, CP, GLYHGB #### [facility] [address] [place] [phone] Corrosion Control Specialist: Savage Jacob MD CO2 [Moles/Vol] 26 mmol/L Normal 20-31 [facility] Comment on above: Performed By: #### C DP, PFA, CP, GLYHGB #### [facility] [address] [place] [phone] Corrosion Control Specialist: Savage Jacob MD Creatinine [Mass/Vol] 1.74 mg/dL High 0.50-0.90 [facility] Comment on above: Performed By: #### C DP, PFA, CP, GLYHGB #### [facility] [employer] [address] [place] [phone] Corrosion Control Specialist: Savage Jacob MD GFR, Amer 35 mL/min Low >60 [facility] Comment on above: Performed By: #### C DP, PFA, CP, GLYHGB #### [facility] [address] [place] [phone] Corrosion Control Specialist: Savage Jacob MD GFR,non Amer 29 mL/min Low >60 [facility] Comment on above: Performed By: #### C DP, PFA, CP, GLYHGB #### [facility] [employer] [address] [place] [phone] Corrosion Control Specialist: Savage Jacob MD Glucose [Mass/Vol] 184 mg/dL High 70-99 [facility] Comment on above: Performed By: #### C DP, PFA, CP, GLYHGB #### [facility] [address] [place] [phone] Corrosion Control Specialist: Savage Jacob MD Potassium [Moles/Vol] 4.4 mmol/L Normal 3.7-5.3 [facility] Comment on above: Performed By: #### C DP, PFA, CP, GLYHGB #### [facility] [employer] [address] [place] [phone] Corrosion Control Specialist: Savage Jacob MD Sodium [Moles/Vol] 143 mmol/L Normal 135-144 [facility] Comment on above: Performed By: #### C DP, PFA, CP, GLYHGB #### [facility] [employer] [address] [place] [phone] Corrosion Control Specialist: Savage Jacob MD Urea nitrogen [Mass/Vol] 57 mg/dL High 8-23 [facility] Comment on above: Performed By: #### C DP, PFA, CP, GLYHGB #### [facility] [employer] [address] [place] [phone] Corrosion Control Specialist: Savage Jacob MD BUN/CRE Ratio NOT REPORTED Normal 9- [facility] Comment on above: Performed By: #### C DP, PFA, CP, GLYHGB #### [facility] [employer] [address] [place] [id number] Corrosion Control Specialist: Savage Jacob MD Staging: NOT REPORTED Normal [facility] Comment on above: Performed By: #### C DP, PFA, CP, GLYHGB #### [facility] [employer] [address] [place] [phone] Corrosion Control Specialist: Savage Jacob MD CALCIUM, IONIC (POC)on POC Ionized Calcium 1.20 mmol/L 1.15 - 1 .33 mmol/L [facility], [place] CBCon 07-21-2019 Erythrocyte distribution width (RBC) [Ratio] 16.0 % High 11.8-14.4 [facility] Comment on above: Performed By: #### C DP, PFA, CP, GLYHGB #### [address] [address] Corrosion Control Specialist: Savage Jacob MD Hematocrit (Bld) [Volume fraction] 28.5 % Low 36.3-47.1 [facility] Comment on above: Performed By: #### C DP, PFA, CP, GLYHGB #### [place] [address] Corrosion Control Specialist: Savage Jacob MD Hemoglobin (Bld) [Mass/Vol] 8.5 g/dL Low 11.9-15.1 [facility] Comment on above: Performed By: #### C DP, PFA, CP, GLYHGB #### [place] [address] Corrosion Control Specialist: Savage Jacob MD MCH (RBC) [Entitic mass] 28.6 pg Normal 25.2-33.5 [facility] Comment on above: Performed By: #### C DP, PFA, CP, GLYHGB #### [place] [address] Corrosion Control Specialist: Savage Jacob MD MCHC (RBC) [Mass/Vol] 29.8 g/dL Normal 28.4-34.8 [facility] Comment on above: Performed By: #### C DP, PFA, CP, GLYHGB #### [address] [address] Corrosion Control Specialist: Savage Jacob MD MCV (RBC) [Entitic vol] 96.0 fL Normal 82.6-102.9 [facility] Comment on above: Performed By: #### C DP, PFA, CP, GLYHGB #### [facility] [employer] [address] [place] [address] Corrosion Control Specialist: Savage Jacob MD NRBC Automated 0.0 per 100 WBC Normal 0.0 [facility] Comment on above: Performed By: #### C DP, PFA, CP, GLYHGB #### [address] [address] Corrosion Control Specialist: Savage Jacob MD Platelet mean volume (Bld) [Entitic vol] 10.0 fL Normal 8.1-13.5 [facility] Comment on above: Performed By: #### C DP, PFA, CP, GLYHGB #### [address] [address] Corrosion Control Specialist: Savage Jacob MD Platelets (Bld) [#/Vol] 287 10*3/uL Normal 138-453 [facility] Comment on above: Performed By: #### C DP, PFA, CP, GLYHGB #### [place] [address] Corrosion Control Specialist: Savage Jacob MD RBC (Bld) [#/Vol] 2.97 10*6/uL Low 3.95-5.11 [facility] Comment on above: Performed By: #### C DP, PFA, CP, GLYHGB #### [address] [address] Corrosion Control Specialist: Savage Jacob MD WBC (Bld) [#/Vol] 15.1 10*3/uL High 3.5-11.3 [facility] Comment on above: Performed By: #### C DP, PFA, CP, GLYHGB #### [address] [address] Corrosion Control Specialist: Savage Jacob MD Erythrocyte distribution width (RBC) [Ratio] 16.0 % High 11.8 - 14.4 % [place] Hematocrit (Bld) [Volume fraction] 28.5 % Low 36.3 - 47.1 % [place] Hemoglobin (Bld) [Mass/Vol] 8.5 g/dL Low 11.9 - 15.1 g/dL [place] Interpretation and review of laboratory results Abnormal [place] MCH (RBC) [Entitic mass] 28.6 pg 25.2 - 33.5 pg [place] MCHC (RBC) [Mass/Vol] 29.8 g/dL 28.4 - 34.8 g/dL [place] MCV (RBC) [Entitic vol] 96.0 fL 82.6 - 102.9 fL [place] Platelet mean volume (Bld) [Entitic vol] 10.0 fL 8.1 - 13.5 fL [place] Platelets (Bld) [#/Vol] 287 10*3/uL [place] RBC (Bld) [#/Vol] 2.97 10*6/uL Low 3.95 - 5.1 1 m/uL [place] WBC (Bld) [#/Vol] 15.1 10*3/uL [place] WBC (Bld) [#/Vol] 0.0 10*3/uL 0.0 per 10 0 WBC [place] CHLORIDE (POC)on 07-21-2019 POC Chloride 104 mmol/L 98 - 107 mmol/L [place] Creatinine W/GFR Point of Ca reon 07-21-2019 GFR Comment [place] GFR Comment 34 mL/min Low >60 [place] GFR Non- 28 mL/min Low >60 [place] POC Creatinine 1.78 mg/dL High 0.51 - 1.19 mg/dL [place] Cult,Bloodon 07-21-2019 Cult,Blood Specimen Description .BLOOD Special Requests L ARM 10 CC Culture NO GROWTH 6 DAYS Report Status FINAL 07/21/2019 Normal [facility] Comment on above: Performed By: #### C DP, PFA, CP, GLYHGB #### [facility] [employer] [address] [place] [address] [phone] Corrosion Control Specialist: Savage Jacob MD Cult,Blood Specimen Description .BLOOD Special Requests R ARM 10 CC Culture NO GROWTH 6 DAYS Report Status FINAL 07/21/2019 Normal [facility] Comment on above: Performed By: #### C DP, PFA, CP, GLYHGB #### [facility] [address] [place], [place] [phone] Corrosion Control Specialist: Savage Jacob MD Culture, Blood 1on 0 Special Requests L ARM 10 CC [place], [place] Special Requests R ARM 10 CC [place] Hemoglobin and hematocrit, b loodon 07-21-2019 POC Hematocrit 28 % Low 36 - 46 % [place] POC Hemoglobin 9.5 g/dL Low 12 - 16 g/dL [place], [place] Lactic Acid, POCon 0 POC Lactic Acid 0.95 mmol/L 0.56 - 1.39 mmol/L [place] Magnesiumon 07-21-2019 Magnesium [Mass/Vol] 3.1 mg/dL High 1.6-2.6 [facility] Comment on above: Performed By: #### C DP, PFA, CP, GLYHGB #### [facility] [place], [place] [phone] Corrosion Control Specialist: Savage Jacob MD Magnesium [Mass/Vol] 3.1 mg/dL High 1.6 - 2 .6 mg/dL [place] Otheron 07-21-2019 Interpretation and review of laboratory results Abnormal [place] Interpretation and review of laboratory results Abnormal [place] Interpretation and review of laboratory results Abnormal [place] Culture NO GROWTH 6 DAYS [place] Specimen Description .BLOOD [place], [place] POC Glucose Fingerstickon Interpretation and review of laboratory results Abnormal [place] POC Glucose 156 mg/dL High 65 - 105 mg/dL [place] Interpretation and review of laboratory results Abnormal [place] POC Glucose 218 mg/dL High 65 - 105 mg/dL [place] Interpretation and review of laboratory results Abnormal [place] POC Glucose 192 mg/dL High 65 - 105 mg/dL [place] POCT Glucoseon 07-21-2019 POC Glucose 187 mg/dL High 74 - 100 mg/dL [place] POTASSIUM (POC)on 07-21-2019 POC Potassium 3.3 mmol/L Low 3.5 - 4.5 mmol/L [place] PTon 07-21-2019 INR Coag (PPP) [Relative time] 1.2 {INR} Normal [facility] Comment on above: Result Comment: Therapeutic Range: Moderate Anticoagulant Intensity: INR = 2.0-3.0 High Anticoagulant Intensity: INR = 2.5-3.5 Performed By: #### C DP, PFA, CP, GLYHGB #### [facility] [address] [place] [address] [phone] Corrosion Control Specialist: Savage Jacob MD PT Coag (PPP) [Time] 12.3 s High 9.0-12.0 [facility] Comment on above: Performed By: #### C DP, PFA, CP, GLYHGB #### [facility] [address] [place] [phone] Corrosion Control Specialist: Savage Jacob MD Protime-INRon 07-21-2019 INR Coag (PPP) [Relative time] 1.2 {INR} [place] PT Coag (PPP) [Time] 12.3 s High [place] SODIUM (POC)on 07-21-2019 POC Sodium 145 mmol/L 138 - 146 mmol/L [place] XR CHEST (SINGLE VIEW FRONTA L)on 07-21-2019 [place] XR CHEST PORTABLEon 07-21-19 20 XR CHEST PORTABLE EXAMINATION: ONE XRAY VIEW OF THE CHEST 07/19/2019 4:09 pm COMPARISON: Yesterday. HISTORY: ORDERING SYSTEM PROVIDED HISTORY: post extubation TECHNOLOGIST PROVIDED HISTORY: post extubation Reason for Exam: upr Acuity: Unknown Type of Exam: Unknown FINDINGS: Interval extubation. Moderate-sized left pleural effusion has increased. Left basilar and left perihilar consolidation remain. No pneumothorax. Stable cardiomegaly. Status post aortic valve repair. Left PICC with tip at the mid SVC. IMPRESSION: 1. Increasing moderate-sized left pleural effusion. 2. Persistent left basilar and left perihilar consolidation or atelectasis. 3. Interval extubation. Interpreted by: Dmitry Mcelroy MD Signed by: Dmitry Mcelroy MD 07/21/19 Final result Normal [place] APTTon 07-20-2019 aPTT Coag (Bld) [Time] 79.3 s High 20.5-30.5 [facility] Comment on above: Performed By: #### C DP, PFA, CP, GLYHGB #### [address] [address] Corrosion Control Specialist: Savage Jacob MD aPTT Coag (Bld) [Time] 79.3 s High [place] Interpretation and review of laboratory results Abnormal [place] aPTT Coag (Bld) [Time] 68.2 s High 20.5-30.5 [facility] Comment on above: Performed By: #### C DP, PFA, CP, GLYHGB #### [address] [address] Corrosion Control Specialist: Savage Jacob MD aPTT Coag (Bld) [Time] 68.2 s High [place] Interpretation and review of laboratory results Abnormal [place] Basic Metabolic Panelon 06-24 Anion gap [Moles/Vol] 16 mmol/L 9 - 17 mmol/L [place] Bun/Cre Ratio NOT REPORTED [place] Calcium [Mass/Vol] 8.7 mg/dL 8.6 - 10. 4 mg/dL [place] Chloride [Moles/Vol] 101 mmol/L 98 - 10 7 mmol/L [place] CO2 [Moles/Vol] 25 mmol/L 20 - 31 mmol/L [place] Creatinine [Mass/Vol] 1.7 mg/dL High 0.5 - 0.9 mg/dL [place] GFR 36 mL/min Low >60 [place] GFR Comment [place] GFR Non- 30 mL/min Low >60 [place] GFR Staging NOT REPORTED [place], [place] Glucose [Mass/Vol] 174 mg/dL High 70 - 99 mg/dL [place], [place] Potassium [Moles/Vol] 4.5 mmol/L 3.7 - 5.3 mmol/L [place] Sodium [Moles/Vol] 142 mmol/L 135 - 144 mmol/L [place] Urea nitrogen [Mass/Vol] 51 mg/dL High 8 - 23 mg/dL [place] Basic Metabolic Profon 07-20 (cont.) Normal [facility] Comment on above: Result Comment: Aver age GFR for 70 or more years old: 75 mL/min/1.73sq m Chronic Kidney Disease: <60 mL/min/1.73sq m Kidney failure: <15 mL/min/1.73sq m eGFR calculated using average adult body mass. Additional eGFR calculator available at: http://www.Dibsie/multiple_crcl_2011.htm Performed By: #### C DP, PFA, CP, GLYHGB #### [facility] [address] [place], [place] [phone] Corrosion Control Specialist: Savage Jacob MD Anion gap [Moles/Vol] 16 mmol/L Normal 9-17 [facility] Comment on above: Performed By: #### C DP, PFA, CP, GLYHGB #### [facility] [address] [place], [place] [phone] Corrosion Control Specialist: Savage Jacob MD Calcium [Mass/Vol] 8.7 mg/dL Normal 8.6-10.4 [facility] Comment on above: Performed By: #### C DP, PFA, CP, GLYHGB #### [facility] [employer] [address] [place] [phone] Corrosion Control Specialist: Savage Jacob MD Chloride [Moles/Vol] 101 mmol/L Normal 98-107 [facility] Comment on above: Performed By: #### C DP, PFA, CP, GLYHGB #### [facility] [address] [place] [phone] Corrosion Control Specialist: Savage Jacob MD CO2 [Moles/Vol] 25 mmol/L Normal 20-31 [facility] Comment on above: Performed By: #### C DP, PFA, CP, GLYHGB #### [address] [address] Corrosion Control Specialist: Savage Jacob MD Creatinine [Mass/Vol] 1.70 mg/dL High 0.50-0.90 [facility] Comment on above: Performed By: #### C DP, PFA, CP, GLYHGB #### [address] [address] Corrosion Control Specialist: Savage Jacob MD GFR, Amer 36 mL/min Low >60 [facility] Comment on above: Performed By: #### C DP, PFA, CP, GLYHGB #### [facility] [employer] [address] [place] [address] Corrosion Control Specialist: Savage Jacob MD GFR,non Amer 30 mL/min Low >60 [facility] Comment on above: Performed By: #### C DP, PFA, CP, GLYHGB #### [facility] [employer] [address] [place] [id number] Corrosion Control Specialist: Savage Jacob MD Glucose [Mass/Vol] 174 mg/dL High 70-99 [facility] Comment on above: Performed By: #### C DP, PFA, CP, GLYHGB #### [facility] [employer] [address] [place] [address] Corrosion Control Specialist: Savage Jacob MD Potassium [Moles/Vol] 4.5 mmol/L Normal 3.7-5.3 [facility] Comment on above: Performed By: #### C DP, PFA, CP, GLYHGB #### [facility] [employer] [address] [place] [address] Corrosion Control Specialist: Savage Jacob MD Sodium [Moles/Vol] 142 mmol/L Normal 135-144 [facility] Comment on above: Performed By: #### C DP, PFA, CP, GLYHGB #### [address] [address] Corrosion Control Specialist: Savage Jacob MD Urea nitrogen [Mass/Vol] 51 mg/dL High 8-23 [facility] Comment on above: Performed By: #### C DP, PFA, CP, GLYHGB #### [address] [address] Corrosion Control Specialist: Savage Jacob MD BUN/CRE Ratio NOT REPORTED Normal 9- [facility] Comment on above: Performed By: #### C DP, PFA, CP, GLYHGB #### [facility] [employer] [address] [place] [address] Corrosion Control Specialist: Savage Jacob MD Staging: NOT REPORTED Normal [facility] Comment on above: Performed By: #### C DP, PFA, CP, GLYHGB #### [facility] [employer] [address] [place] [address] Corrosion Control Specialist: Savage Jacob MD CBCon 07-20-2019 Erythrocyte distribution width (RBC) [Ratio] 16.2 % High 11.8-14.4 [facility] Comment on above: Performed By: #### C DP, PFA, CP, GLYHGB #### [facility] [employer] [address] [place] [phone] Corrosion Control Specialist: Savage Jacob MD Hematocrit (Bld) [Volume fraction] 27.8 % Low 36.3-47.1 [facility] Comment on above: Performed By: #### C DP, PFA, CP, GLYHGB #### [address] [address] Corrosion Control Specialist: Savage Jacob MD Hemoglobin (Bld) [Mass/Vol] 8.6 g/dL Low 11.9-15.1 [facility] Comment on above: Performed By: #### C DP, PFA, CP, GLYHGB #### [address] [address] Corrosion Control Specialist: Savage Jacob MD MCH (RBC) [Entitic mass] 29.1 pg Normal 25.2-33.5 [facility] Comment on above: Performed By: #### C DP, PFA, CP, GLYHGB #### [address] [address] Corrosion Control Specialist: Savage Jacob MD MCHC (RBC) [Mass/Vol] 30.9 g/dL Normal 28.4-34.8 [facility] Comment on above: Performed By: #### C DP, PFA, CP, GLYHGB #### [address] [address] Corrosion Control Specialist: Savage Jacob MD MCV (RBC) [Entitic vol] 93.9 fL Normal 82.6-102.9 [facility] Comment on above: Performed By: #### C DP, PFA, CP, GLYHGB #### [address] [address] Corrosion Control Specialist: Savage Jacob MD NRBC Automated 0.1 per 100 WBC High 0.0 [facility] Comment on above: Performed By: #### C DP, PFA, CP, GLYHGB #### [address] [address] Corrosion Control Specialist: Savage Jacob MD Platelet mean volume (Bld) [Entitic vol] 10.2 fL Normal 8.1-13.5 [facility] Comment on above: Performed By: #### C DP, PFA, CP, GLYHGB #### [facility] [employer] [facility] [place], [place] [phone] Corrosion Control Specialist: Savage Jacob MD Platelets (Bld) [#/Vol] 370 10*3/uL Normal 138-453 [facility] Comment on above: Performed By: #### C DP, PFA, CP, GLYHGB #### [place] [address] [place], [place] [phone] Corrosion Control Specialist: Savage Jacob MD RBC (Bld) [#/Vol] 2.96 10*6/uL Low 3.95-5.11 [facility] Comment on above: Performed By: #### C DP, PFA, CP, GLYHGB #### [address] [address] Corrosion Control Specialist: Savage Jacob MD WBC (Bld) [#/Vol] 23.1 10*3/uL High 3.5-11.3 [facility] Comment on above: Performed By: #### C DP, PFA, CP, GLYHGB #### [address] [phone] Corrosion Control Specialist: Savage Jacob MD Erythrocyte distribution width (RBC) [Ratio] 16.2 % High 11.8 - 14.4 % [place] Hematocrit (Bld) [Volume fraction] 27.8 % Low 36.3 - 47.1 % [place] Hemoglobin (Bld) [Mass/Vol] 8.6 g/dL Low 11.9 - 15.1 g/dL [place] Interpretation and review of laboratory results Abnormal [place] MCH (RBC) [Entitic mass] 29.1 pg 25.2 - 33.5 pg [place] MCHC (RBC) [Mass/Vol] 30.9 g/dL 28.4 - 34.8 g/dL [place] MCV (RBC) [Entitic vol] 93.9 fL 82.6 - 102.9 fL [place] Platelet mean volume (Bld) [Entitic vol] 10.2 fL 8.1 - 13.5 fL [place], [place] Platelets (Bld) [#/Vol] 370 10*3/uL [place] RBC (Bld) [#/Vol] 2.96 10*6/uL Low 3.95 - 5.1 1 m/uL [place] WBC (Bld) [#/Vol] 0.1 10*3/uL High 0.0 per 10 0 WBC [place] WBC (Bld) [#/Vol] 23.1 10*3/uL [place] EKG 12 Leadon 07-20-2019 Atrial Rate [address] [facility], [place] P [place] [address] [facility], [place] P-R Interval 204 ms [facility], [place] Q-T Interval 414 ms [facility] QRS Duration 92 ms [facility] QTc Calculation (Bazett) [address] [facility], [place] R [place] 46 degrees [facility]- [place], [place] T [place] -[address] [facility], [place] Ventricular Rate 67 BPM [facility] [facility] [facility] [place] Atrial Rate [address] [facility] P [place] [address] [facility], [place] P-R Interval 178 ms [facility], [place] Q-T Interval 434 ms [facility], [place] QRS Duration 90 ms [facility], [place] QTc Calculation (Bazett) [address] [facility], [place] R [place] 57 degrees [facility]- [place], [place] T [place] -80 degrees [facility]- [place], [place] Ventricular Rate 64 BPM [facility] [facility] [facility], [place] Magnesiumon 07-20-2019 Magnesium [Mass/Vol] 2.8 mg/dL High 1.6-2.6 [facility] Comment on above: Performed By: #### C DP, PFA, CP, GLYHGB #### [facility] [place] [address] Corrosion Control Specialist: Savage Jacob MD Magnesium [Mass/Vol] 2.8 mg/dL High 1.6 - 2 .6 mg/dL [place] Otheron 07-20-2019 Interpretation and review of laboratory results Abnormal [place] POC Glucose Fingerstickon Interpretation and review of laboratory results Abnormal [place] POC Glucose 165 mg/dL High 65 - 105 mg/dL [place] Interpretation and review of laboratory results Abnormal [place] POC Glucose 180 mg/dL High 65 - 105 mg/dL [place] Interpretation and review of laboratory results Abnormal [place] POC Glucose 190 mg/dL High 65 - 105 mg/dL [place] Interpretation and review of laboratory results Abnormal [place] POC Glucose 174 mg/dL High 65 - 105 mg/dL [place] Interpretation and review of laboratory results Abnormal [place] POC Glucose 184 mg/dL High 65 - 105 mg/dL [place] PTon 07-20-2019 INR Coag (PPP) [Relative time] 1.1 {INR} Normal [facility] Comment on above: Result Comment: Therapeutic Range: Moderate Anticoagulant Intensity: INR = 2.0-3.0 High Anticoagulant Intensity: INR = 2.5-3.5 Performed By: #### C DP, PFA, CP, GLYHGB #### [facility] [place], [place] [phone] Corrosion Control Specialist: Savage Jacob MD PT Coag (PPP) [Time] 11.7 s Normal 9.0-12.0 [facility] Comment on above: Performed By: #### C DP, PFA, CP, GLYHGB #### [facility] [place], [place] [phone] Corrosion Control Specialist: Savage Jacob MD Phosphoruson 07-20-2019 Phosphate [Mass/Vol] 5.4 mg/dL High 2.6 - 4 .5 mg/dL [place] Phosphorus, Inorg.on 020 Phosphorus, Inorg. 5.4 mg/dL High 2.6-4.5 [facility] Comment on above: Performed By: #### C DP, PFA, CP, GLYHGB #### [facility] [address] [place] [address] Corrosion Control Specialist: Savage Jacob MD Protime-INRon 07-20-2019 INR Coag (PPP) [Relative time] 1.1 {INR} [place] PT Coag (PPP) [Time] 11.7 s [place] XR ABDOMEN FOR NG/OG/NE TUBE PLACEMENTon 07-20-2019 XR ABDOMEN FOR NG/OG/NE TUBE PLACEMENT EXAMINATION: ONE SUPINE XRAY VIEW(S) OF THE ABDOMEN 07/20/2019 2:51 pm COMPARISON: KUB 07/19/2019 HISTORY: ORDERING SYSTEM PROVIDED HISTORY: Confirmation of course of NG/OG/NE tube and location of tip of tube TECHNOLOGIST PROVIDED HISTORY: Confirmation of course of NG/OG/NE tube and location of tip of tube Portable?->Yes FINDINGS: Prominent portions of the pelvis are excluded from the field of view. Visualized portions of the bowel gas pattern are unremarkable. No unusual abdominal soft tissue or calcific density is seen. Visualized osseous structures appear unremarkable. NG tube extends below the left hemidiaphragm, into the upper abdomen, tip overlying the expected level of the stomach, left upper quadrant. Cholecystectomy clips are present right upper quadrant. IMPRESSION: Unremarkable limited KUB. NG tube tip projects at the left upper quadrant, overlying the expected location of the stomach. Interpreted by: Dm Marie MD Signed by: Dm Marie MD 07/20/19 Final result Normal [facility], [facility], [facility], [place] APTTon 07-19-2019 aPTT Coag (Bld) [Time] 65.2 s High 20.5-30.5 [facility] Comment on above: Performed By: #### C DP, PFA, CP, GLYHGB #### [facility] [place] [address] Corrosion Control Specialist: Savage Jacob MD aPTT Coag (Bld) [Time] 65.2 s High [place] Interpretation and review of laboratory results Abnormal [place] aPTT Coag (Bld) [Time] 60.0 s High 20.5-30.5 [facility] Comment on above: Performed By: #### C DP, PFA, CP, GLYHGB #### [facility] [place] [address] Corrosion Control Specialist: Savage Jacob MD aPTT Coag (Bld) [Time] 60.0 s High [place] Interpretation and review of laboratory results Abnormal [place] aPTT Coag (Bld) [Time] 77.1 s High 20.5-30.5 [facility] Comment on above: Performed By: #### C DP, PFA, CP, GLYHGB #### [facility] [address] [place] [id number] Corrosion Control Specialist: Savage Jacob MD aPTT Coag (Bld) [Time] 77.1 s High [place] Interpretation and review of laboratory results Abnormal [place] Arterial Blood Gas, POCon [place] Test Positive [place] FIO2 40.0 [place] Mode PRVC [place] Negative Base Excess, Art NOT REPORTED [place] O2 Device/Flow/% Adult Ventilator [place] POC HCO3 28.1 mmol/L High 21 - 28 mmol/L [place] POC O2 SAT 98 % 94 - 98 % [place] POC pCO2 39.0 [place] POC pCO2 Temp NOT REPORTED mm Hg [place] POC pH 7.465 High [place] POC pH Temp NOT REPORTED [place], [place] POC PO2 101.3 [place] POC pO2 Temp NOT REPORTED mm Hg [place], [place] Positive Base Excess, Art 4 High [place] Pt Temp NOT REPORTED [place] Sample Site Arterial Line [place] TCO2 (calc), Art 29 mmol/L 22 - 29 mmol/L [place] Basic Metabolic Panelon 06-24 Anion gap [Moles/Vol] 13 mmol/L 9 - 17 mmol/L [place] Bun/Cre Ratio NOT REPORTED [place] Calcium [Mass/Vol] 8.7 mg/dL 8.6 - 10. 4 mg/dL [place] Chloride [Moles/Vol] 99 mmol/L 98 - 10 7 mmol/L [place] CO2 [Moles/Vol] 25 mmol/L 20 - 31 mmol/L [place] Creatinine [Mass/Vol] 1.67 mg/dL High 0.5 - 0.9 mg/dL [place] GFR 37 mL/min Low >60 [place] GFR Comment [place] GFR Non- 30 mL/min Low >60 [place] GFR Staging NOT REPORTED [place], [place] Glucose [Mass/Vol] 252 mg/dL High 70 - 99 mg/dL [place], [place] Interpretation and review of laboratory results Abnormal [place] Potassium [Moles/Vol] 5.0 mmol/L 3.7 - 5.3 mmol/L [place] Sodium [Moles/Vol] 137 mmol/L 135 - 144 mmol/L [place] Urea nitrogen [Mass/Vol] 44 mg/dL High 8 - 23 mg/dL [place], [place] Basic Metabolic Profon 07-19 (cont.) Normal [facility] Comment on above: Result Comment: Aver age GFR for 70 or more years old: 75 mL/min/1.73sq m Chronic Kidney Disease: <60 mL/min/1.73sq m Kidney failure: <15 mL/min/1.73sq m eGFR calculated using average adult body mass. Additional eGFR calculator available at: http://www.[employer] [place]/multiple_crcl_2011.htm Performed By: #### C DP, PFA, CP, GLYHGB #### [facility] [employer] [address] [place] [phone] Corrosion Control Specialist: Savage Jacob MD Anion gap [Moles/Vol] 13 mmol/L Normal 9-17 [facility] Comment on above: Performed By: #### C DP, PFA, CP, GLYHGB #### [address] [address] Corrosion Control Specialist: Savage Jacob MD Calcium [Mass/Vol] 8.7 mg/dL Normal 8.6-10.4 [facility] Comment on above: Performed By: #### C DP, PFA, CP, GLYHGB #### [facility] [employer] [address] [place] [address] Corrosion Control Specialist: Savage Jacob MD Chloride [Moles/Vol] 99 mmol/L Normal 98-107 [facility] Comment on above: Performed By: #### C DP, PFA, CP, GLYHGB #### [facility] [employer] [address] [place] [address] Corrosion Control Specialist: Savage Jacob MD CO2 [Moles/Vol] 25 mmol/L Normal 20-31 [facility] Comment on above: Performed By: #### C DP, PFA, CP, GLYHGB #### [facility] [employer] [address] [place] [address] Corrosion Control Specialist: Savage Jacob MD Creatinine [Mass/Vol] 1.67 mg/dL High 0.50-0.90 [facility] Comment on above: Performed By: #### C DP, PFA, CP, GLYHGB #### [facility] [employer] [address] [place] [address] [phone] Corrosion Control Specialist: Savage Jacob MD GFR, Amer 37 mL/min Low >60 [facility] Comment on above: Performed By: #### C DP, PFA, CP, GLYHGB #### [facility] [employer] [address] [place] [address] Corrosion Control Specialist: Savage Jacob MD GFR,non Amer 30 mL/min Low >60 [facility] Comment on above: Performed By: #### C DP, PFA, CP, GLYHGB #### [facility] [employer] [address] [place] [phone] Corrosion Control Specialist: Savage Jacob MD Glucose [Mass/Vol] 252 mg/dL High 70-99 [facility] Comment on above: Performed By: #### C DP, PFA, CP, GLYHGB #### [address] [address] Corrosion Control Specialist: Savage Jacob MD Potassium [Moles/Vol] 5.0 mmol/L Normal 3.7-5.3 [facility] Comment on above: Performed By: #### C DP, PFA, CP, GLYHGB #### [address] [address] Corrosion Control Specialist: Savage Jacob MD Sodium [Moles/Vol] 137 mmol/L Normal 135-144 [facility] Comment on above: Performed By: #### C DP, PFA, CP, GLYHGB #### [facility] [employer] [address] [place] [address] Corrosion Control Specialist: Savage Jacob MD Urea nitrogen [Mass/Vol] 44 mg/dL High 8-23 [facility] Comment on above: Performed By: #### C DP, PFA, CP, GLYHGB #### [facility] [employer] [address] [place] [address] Corrosion Control Specialist: Savage Jacob MD BUN/CRE Ratio NOT REPORTED Normal 9-20 [facility] Comment on above: Performed By: #### C DP, PFA, CP, GLYHGB #### [address] [address] Corrosion Control Specialist: Savage Jacob MD Staging: NOT REPORTED Normal [facility] Comment on above: Performed By: #### C DP, PFA, CP, GLYHGB #### [facility] [employer] [address] [place] [phone] Corrosion Control Specialist: Savage Jacob MD CBCon 07-19-2019 Erythrocyte distribution width (RBC) [Ratio] 15.9 % High 11.8-14.4 [facility] Comment on above: Performed By: #### C DP, PFA, CP, GLYHGB #### [facility] [employer] [address] [place] [address] Corrosion Control Specialist: Savage Jacob MD Hematocrit (Bld) [Volume fraction] 26.6 % Low 36.3-47.1 [facility] Comment on above: Performed By: #### C DP, PFA, CP, GLYHGB #### [facility] [employer] [address] [place] [phone] Corrosion Control Specialist: Savage Jacob MD Hemoglobin (Bld) [Mass/Vol] 8.3 g/dL Low 11.9-15.1 [facility] Comment on above: Performed By: #### C DP, PFA, CP, GLYHGB #### [facility] [employer] [address] [place] [address] Corrosion Control Specialist: Savage Jacob MD MCH (RBC) [Entitic mass] 28.7 pg Normal 25.2-33.5 [facility] Comment on above: Performed By: #### C DP, PFA, CP, GLYHGB #### [facility] [employer] [address] [place] [address] Corrosion Control Specialist: Savage Jacob MD MCHC (RBC) [Mass/Vol] 31.2 g/dL Normal 28.4-34.8 [facility] Comment on above: Performed By: #### C DP, PFA, CP, GLYHGB #### [address] [address] Corrosion Control Specialist: Savage Jacob MD MCV (RBC) [Entitic vol] 92.0 fL Normal 82.6-102.9 [facility] Comment on above: Performed By: #### C DP, PFA, CP, GLYHGB #### [address] [address] Corrosion Control Specialist: Savage Jacob MD NRBC Automated 0.0 per 100 WBC Normal 0.0 [facility] Comment on above: Performed By: #### C DP, PFA, CP, GLYHGB #### [address] [address] Corrosion Control Specialist: Savage Jacob MD Platelet mean volume (Bld) [Entitic vol] 10.5 fL Normal 8.1-13.5 [facility] Comment on above: Performed By: #### C DP, PFA, CP, GLYHGB #### [address] [address] Corrosion Control Specialist: Savage Jacob MD Platelets (Bld) [#/Vol] 244 10*3/uL Normal 138-453 [facility] Comment on above: Performed By: #### C DP, PFA, CP, GLYHGB #### [address] [address] Corrosion Control Specialist: Savage Jacob MD RBC (Bld) [#/Vol] 2.89 10*6/uL Low 3.95-5.11 [facility] Comment on above: Performed By: #### C DP, PFA, CP, GLYHGB #### [address] [address] Corrosion Control Specialist: Savage Jacob MD WBC (Bld) [#/Vol] 19.4 10*3/uL High 3.5-11.3 [facility] Comment on above: Performed By: #### C DP, PFA, CP, GLYHGB #### [facility] [employer] [address] [place], [place] [phone] Corrosion Control Specialist: Savage Jacob MD Erythrocyte distribution width (RBC) [Ratio] 15.9 % High 11.8 - 14.4 % [place] Hematocrit (Bld) [Volume fraction] 26.6 % Low 36.3 - 47.1 % [place] Hemoglobin (Bld) [Mass/Vol] 8.3 g/dL Low 11.9 - 15.1 g/dL [place] Interpretation and review of laboratory results Abnormal [place] MCH (RBC) [Entitic mass] 28.7 pg 25.2 - 33.5 pg [place] MCHC (RBC) [Mass/Vol] 31.2 g/dL 28.4 - 34.8 g/dL [place] MCV (RBC) [Entitic vol] 92.0 fL 82.6 - 102.9 fL [place] Platelet mean volume (Bld) [Entitic vol] 10.5 fL 8.1 - 13.5 fL [place] Platelets (Bld) [#/Vol] 244 10*3/uL [place] RBC (Bld) [#/Vol] 2.89 10*6/uL Low 3.95 - 5.1 1 m/uL [place] WBC (Bld) [#/Vol] 19.4 10*3/uL High [place] WBC (Bld) [#/Vol] 0.0 10*3/uL 0.0 per 10 0 WBC [place] Extubationon 07-19-2019 [place] Hematology[place] 07-19-2019 Blood product type Nom (BPU) Leukocyte Reduced Red Cell [place] Magnesiumon 07-19-2019 Magnesium [Mass/Vol] 2.5 mg/dL Normal 1.6-2.6 [facility] Comment on above: Performed By: #### C DP, PFA, CP, GLYHGB #### [facility] [employer] [facility] [place], [place] [phone] Corrosion Control Specialist: Savage Jacob MD Magnesium [Mass/Vol] 2.5 mg/dL 1.6 - 2 .6 mg/dL [place] Otheron 07-19-2019 Crossmatch Result COMPATIBLE [place] Crossmatch Result INCOMPATIBLE [place] Dispense Status REL FROM ALLOC [place] Transfusion Status OK TO TRANSFUSE [place] Transfusion Status DO NOT ISSUE FOR TRANSFUSION [place] Unit Divison 0 [place], [place] Interpretation and review of laboratory results Abnormal [place] POC Glucose Fingerstickon Interpretation and review of laboratory results Abnormal [place] POC Glucose 173 mg/dL High 65 - 105 mg/dL [place] Interpretation and review of laboratory results Abnormal [place] POC Glucose 213 mg/dL High 65 - 105 mg/dL [place] Interpretation and review of laboratory results Abnormal [place] POC Glucose 211 mg/dL High 65 - 105 mg/dL [place] Interpretation and review of laboratory results Abnormal [place] POC Glucose 262 mg/dL High 65 - 105 mg/dL [place] POCT Glucoseon 07-19-2019 POC Glucose 237 mg/dL High 74 - 100 mg/dL [place] PTon 07-19-2019 INR Coag (PPP) [Relative time] 1.1 {INR} Normal [facility] Comment on above: Result Comment: Therapeutic Range: Moderate Anticoagulant Intensity: INR = 2.0-3.0 High Anticoagulant Intensity: INR = 2.5-3.5 Performed By: #### C DP, PFA, CP, GLYHGB #### [facility] [employer] [facility] [place], [place] [phone] Corrosion Control Specialist: Savage Jacob MD PT Coag (PPP) [Time] 11.1 s Normal 9.0-12.0 [facility] Comment on above: Performed By: #### C DP, PFA, CP, GLYHGB #### [facility] [employer] [address] [place] [address] Corrosion Control Specialist: Savage Jacob MD Protime-INRon 07-19-2019 INR Coag (PPP) [Relative time] 1.1 {INR} [facility], [place] PT Coag (PPP) [Time] 11.1 s [facility], [place] TYPE AND SCREENon 07-19-2019 ABO/Rh Positive [place] Antibody ID [place] Antigen Type, Patient [facility], [place] Arm Band Number [id number] [place] NASREEN IgG Negative [place] Dispense Status TRANSFUSED [facility], [place] Expiration Date 07/19/2019,2359 [facility], [place] Unit Number [id number] [facility], [place] Unit Number [id number] [facility], [place] Unit Number [id number] [facility], [place] Unit Number [id number] [facility], [place] Unit Number [id number] [place] XR ABDOMEN FOR NG/OG/NE TUBE PLACEMENTon 07-19-2019 XR ABDOMEN FOR NG/OG/NE TUBE PLACEMENT EXAMINATION: ONE SUPINE XRAY VIEW(S) OF THE ABDOMEN 07/19/2019 9:29 am COMPARISON: 07/08/2019 HISTORY: ORDERING SYSTEM PROVIDED HISTORY: Confirmation of course of NG/OG/NE tube and location of tip of tube TECHNOLOGIST PROVIDED HISTORY: Confirmation of course of NG/OG/NE tube and location of tip of tube Portable?->Yes Reason for Exam: supine portable, confirmation of NG FINDINGS: Nasogastric tube tip is in the proximal stomach with the side hole just past the GE junction. Suggest advancing approximately 5 cm. Postoperative changes in the chest. Cholecystectomy clips noted. Nonspecific nonobstructive bowel gas pattern as visualized. IMPRESSION: Nasogastric tube tip is in the proximal stomach. Suggest advancing approximately 5 cm. Interpreted by: Oscar Joshi MD Signed by: Oscar Joshi MD 07/19/19 Final result Normal [place] APTTon 07-18-2019 aPTT Coag (Bld) [Time] 54.1 s High 20.5-30.5 [facility] Comment on above: Performed By: #### C DP, PFA, CP, GLYHGB #### [facility] [employer] [address] [place] [address] Corrosion Control Specialist: Savage Jacob MD aPTT Coag (Bld) [Time] 54.1 s High [place], [place] Interpretation and review of laboratory results Abnormal [place] Arterial Blood Gas, POCon Graham Test NOT APPLICABLE [place], [place] FIO2 40.0 [place] Interpretation and review of laboratory results Abnormal [place] Mode PRVC [place] Negative Base Excess, Art NOT REPORTED [place] O2 Device/Flow/% Adult Ventilator [place] POC HCO3 27.5 mmol/L 21 - 28 mmol/L [place] P[place] O2 SAT 97 % 94 - 98 % [place] POC pCO2 38.1 [place] P[place] pCO2 Temp NOT REPORTED mm Hg [place] P[place] pH 7.467 High [place] POC pH Temp NOT REPORTED [place], [place] POC PO2 81.0 Low [place] POC pO2 Temp NOT REPORTED mm Hg [place], [place] Positive Base Excess, Art 4 High [place] Pt Temp NOT REPORTED [place] Sample Site Arterial Line [place] TCO2 (calc), Art 29 mmol/L 22 - 29 mmol/L [place] Basic Metabolic Panelon 06-24 Anion gap [Moles/Vol] 16 mmol/L 9 - 17 mmol/L [place] Bun/Cre Ratio NOT REPORTED [facility] [place] Calcium [Mass/Vol] 8.8 mg/dL 8.6 - 10. 4 mg/dL [place] Chloride [Moles/Vol] 97 mmol/L Low 98 - 10 7 mmol/L [place] CO2 [Moles/Vol] 25 mmol/L 20 - 31 mmol/L [place] Creatinine [Mass/Vol] 1.68 mg/dL High 0.5 - 0.9 mg/dL [place] GFR 37 mL/min Low >60 [place], [place] GFR Comment [place] GFR Non- 30 mL/min Low >60 [place] GFR Staging NOT REPORTED [place], [place] Glucose [Mass/Vol] 190 mg/dL High 70 - 99 mg/dL [place], [place] Potassium [Moles/Vol] 4.0 mmol/L 3.7 - 5.3 mmol/L [place] Sodium [Moles/Vol] 138 mmol/L 135 - 144 mmol/L [place] Urea nitrogen [Mass/Vol] 34 mg/dL High 8 - 23 mg/dL [place] Basic Metabolic Profon 07-18 (cont.) Normal [facility] Comment on above: Result Comment: Aver age GFR for 70 or more years old: 75 mL/min/1.73sq m Chronic Kidney Disease: <60 mL/min/1.73sq m Kidney failure: <15 mL/min/1.73sq m eGFR calculated using average adult body mass. Additional eGFR calculator available at: http://www.[employer] [place]/multiple_crcl_2012.htm Performed By: #### C DP, PFA, CP, GLYHGB #### [facility] [employer] [facility] [place] [address] Corrosion Control Specialist: Savage Jacob MD Anion gap [Moles/Vol] 16 mmol/L Normal 9-17 [facility] Comment on above: Performed By: #### C DP, PFA, CP, GLYHGB #### [facility] [employer] [address] [place] [address] Corrosion Control Specialist: Savage Jacob MD Calcium [Mass/Vol] 8.8 mg/dL Normal 8.6-10.4 [facility] Comment on above: Performed By: #### C DP, PFA, CP, GLYHGB #### [facility] [employer] [address] [place] [address] Corrosion Control Specialist: Savage Jacob MD Chloride [Moles/Vol] 97 mmol/L Low 98-107 [facility] Comment on above: Performed By: #### C DP, PFA, CP, GLYHGB #### [facility] [employer] [address] [place] [phone] Corrosion Control Specialist: Savage Jacob MD CO2 [Moles/Vol] 25 mmol/L Normal 20-31 [facility] Comment on above: Performed By: #### C DP, PFA, CP, GLYHGB #### [facility] [employer] [address] [place] [address] Corrosion Control Specialist: Savage Jacob MD Creatinine [Mass/Vol] 1.68 mg/dL High 0.50-0.90 [facility] Comment on above: Performed By: #### C DP, PFA, CP, GLYHGB #### [facility] [employer] [address] [place] [address] Corrosion Control Specialist: Savage Jacob MD GFR, Amer 37 mL/min Low >60 [facility] Comment on above: Performed By: #### C DP, PFA, CP, GLYHGB #### [facility] [employer] [address] [place] [address] Corrosion Control Specialist: Savage Jacob MD GFR,non Amer 30 mL/min Low >60 [facility] Comment on above: Performed By: #### C DP, PFA, CP, GLYHGB #### [facility] [employer] [address] [place] [address] Corrosion Control Specialist: Savage Jacob MD Glucose [Mass/Vol] 190 mg/dL High 70-99 [facility] Comment on above: Performed By: #### C DP, PFA, CP, GLYHGB #### [address] [address] Corrosion Control Specialist: Savage Jacob MD Potassium [Moles/Vol] 4.0 mmol/L Normal 3.7-5.3 [facility] Comment on above: Performed By: #### C DP, PFA, CP, GLYHGB #### [address] [address] Corrosion Control Specialist: Savage Jacob MD Sodium [Moles/Vol] 138 mmol/L Normal 135-144 [facility] Comment on above: Performed By: #### C DP, PFA, CP, GLYHGB #### [address] [address] Corrosion Control Specialist: Savage Jacob MD Urea nitrogen [Mass/Vol] 34 mg/dL High 8-23 [facility] Comment on above: Performed By: #### C DP, PFA, CP, GLYHGB #### [address] [address] Corrosion Control Specialist: Savage Jacob MD BUN/CRE Ratio NOT REPORTED Normal 9-20 [facility] Comment on above: Performed By: #### C DP, PFA, CP, GLYHGB #### [facility] [address] [place] [address] Corrosion Control Specialist: Savage Jacob MD Staging: NOT REPORTED Normal [facility] Comment on above: Performed By: #### C DP, PFA, CP, GLYHGB #### [facility] [address] [place] [address] Corrosion Control Specialist: Savage Jacob MD CBCon 07-18-2019 NRBC Automated 0.5 per 100 WBC High 0.0 [facility] Comment on above: Performed By: #### C DP, PFA, CP, GLYHGB #### [address] [address] Corrosion Control Specialist: Savage Jacob MD Erythrocyte distribution width (RBC) [Ratio] 15.9 % High 11.8-14.4 [place] Comment on above: Performed By: #### C DP, PFA, CP, GLYHGB #### [facility] [employer] [address] [place] [address] Corrosion Control Specialist: Savage Jacob MD Hematocrit (Bld) [Volume fraction] 26.3 % Low 36.3-47.1 [place] Comment on above: Performed By: #### C DP, PFA, CP, GLYHGB #### [address] [address] Corrosion Control Specialist: Savage Jacob MD Hemoglobin (Bld) [Mass/Vol] 8.4 g/dL Low 11.9-15.1 [place] Comment on above: Performed By: #### C DP, PFA, CP, GLYHGB #### [facility] [employer] [address] [place] [address] Corrosion Control Specialist: Savage Jacob MD MCH (RBC) [Entitic mass] 29.4 pg Normal 25.2-33.5 [place] Comment on above: Performed By: #### C DP, PFA, CP, GLYHGB #### [facility] [employer] [address] [place] [address] Corrosion Control Specialist: Savage Jacob MD MCHC (RBC) [Mass/Vol] 31.9 g/dL Normal 28.4-34.8 [place] Comment on above: Performed By: #### C DP, PFA, CP, GLYHGB #### [facility] [employer] [address] [place] [address] Corrosion Control Specialist: Savage Jacob MD MCV (RBC) [Entitic vol] 92.0 fL Normal 82.6-102.9 [place] Comment on above: Performed By: #### C DP, PFA, CP, GLYHGB #### [address] [address] Corrosion Control Specialist: Savage Jacob MD Platelet mean volume (Bld) [Entitic vol] 10.6 fL Normal 8.1-13.5 [place] Comment on above: Performed By: #### C DP, PFA, CP, GLYHGB #### [address] [address] Corrosion Control Specialist: Savage Jacob MD Platelets (Bld) [#/Vol] 246 10*3/uL Normal 138-453 [place] Comment on above: Performed By: #### C DP, PFA, CP, GLYHGB #### [address] [address] Corrosion Control Specialist: Savage Jacob MD RBC (Bld) [#/Vol] 2.86 10*6/uL Low 3.95-5.11 [place] Comment on above: Performed By: #### C DP, PFA, CP, GLYHGB #### [address] [address] Corrosion Control Specialist: Savage Jacob MD WBC (Bld) [#/Vol] 21.3 10*3/uL High 3.5-11.3 [place] Comment on above: Performed By: #### C DP, PFA, CP, GLYHGB #### [address] [address] Corrosion Control Specialist: Savage Jacob MD Interpretation and review of laboratory results Abnormal [place] WBC (Bld) [#/Vol] 0.5 10*3/uL High 0.0 per 10 0 WBC [place] EKG 12 [place] 07-18-2019 Atrial Rate 52 BPM [facility] 54 degrees [facility] P-R Interval 190 ms [facility] [place] Q-T Interval 460 ms [facility] [place] QRS Duration 88 ms [facility] [place] QTc Calculation (Bazett) 427 ms [facility] R [place] 55 degrees [facility] -33 degrees [facility] Ventricular Rate 52 BPM [facility] [place] [facility] [facility] Atrial Rate 53 BPM [facility] 62 degrees [facility] P-R Interval 188 ms [facility] [place] Q-T Interval 432 ms [facility] [place] QRS Duration 86 ms [facility] [place] QTc Calculation (Bazett) 405 ms [facility] R [place] 54 degrees [facility] -12 degrees [facility] Ventricular Rate 53 BPM [facility] [place] [facility] [facility] Magnesiumon 07-18-2019 Magnesium [Mass/Vol] 2.3 mg/dL Normal 1.6-2.6 [facility] Comment on above: Performed By: #### C DP, PFA, CP, GLYHGB #### [facility] [employer] [facility] [place], [place] [phone] Corrosion Control Specialist: Savage Jacob MD Magnesium [Mass/Vol] 2.3 mg/dL 1.6 - 2 .6 mg/dL [facility], [place] Otheron 07-18-2019 Interpretation and review of laboratory results Abnormal [place] POC Glucose Fingerstickon Interpretation and review of laboratory results Abnormal [place] POC Glucose 185 mg/dL High 65 - 105 mg/dL [place] Interpretation and review of laboratory results Abnormal [place] POC Glucose 181 mg/dL High 65 - 105 mg/dL [place] Interpretation and review of laboratory results Abnormal [place] POC Glucose 145 mg/dL High 65 - 105 mg/dL [place] Interpretation and review of laboratory results Abnormal [place] POC Glucose 153 mg/dL High 65 - 105 mg/dL [place] Interpretation and review of laboratory results Abnormal [place] POC Glucose 173 mg/dL High 65 - 105 mg/dL [place] Interpretation and review of laboratory results Abnormal [place] POC Glucose 168 mg/dL High 65 - 105 mg/dL [place] PTon 07-18-2019 INR Coag (PPP) [Relative time] 1.1 {INR} Normal [facility] Comment on above: Result Comment: Therapeutic Range: Moderate Anticoagulant Intensity: INR = 2.0-3.0 High Anticoagulant Intensity: INR = 2.5-3.5 Performed By: #### C DP, PFA, CP, GLYHGB #### [facility] [address] [place] [phone] Corrosion Control Specialist: Savage Jacob MD PT Coag (PPP) [Time] 11.3 s Normal 9.0-12.0 [facility] Comment on above: Performed By: #### C DP, PFA, CP, GLYHGB #### [facility] [address] [place] [address] Corrosion Control Specialist: Savage Jacob MD Phosphoruson 07-18-2019 Phosphate [Mass/Vol] 4.8 mg/dL High 2.6 - 4 .5 mg/dL [place] Phosphorus, Inorg.on 020 Phosphorus, Inorg. 4.8 mg/dL High 2.6-4.5 [facility] Comment on above: Performed By: #### C DP, PFA, CP, GLYHGB #### [facility] [address] [place] [address] Corrosion Control Specialist: Savage Jacob MD Protime-INRon 07-18-2019 INR Coag (PPP) [Relative time] 1.1 {INR} [place] PT Coag (PPP) [Time] 11.3 s [place], [place] XR CHEST PORTABLEon 07-18-19 20 XR CHEST PORTABLE EXAMINATION: ONE XRAY VIEW OF THE CHEST 07/18/2019 6:05 am COMPARISON: July 17, 2019 HISTORY: ORDERING SYSTEM PROVIDED HISTORY: POST CABG TECHNOLOGIST PROVIDED HISTORY: POST CABG FINDINGS: The ETT is 4.3 cm above the janes. The feeding tube is inserted with its tip below the diaphragm and beyond the field of view and the side hole in the fundus of the stomach. A left-sided PICC line is seen with its tip at the superior cavoatrial junction. The cardiomediastinal silhouette is stable. There are patchy airspace opacities bilaterally, may be related to pulmonary edema versus pneumonia. There is no pleural effusion. There is no pneumothorax. There is no acute osseous abnormality. IMPRESSION: Patchy airspace opacities bilaterally, may be related to pulmonary edema versus pneumonia, increased at the right lung base. Stable mild cardiomegaly. Interpreted by: Red Sheets MD Signed by: Red Sheets MD 07/18/19 Final result Normal [place], [place] APTTon 07-17-2019 aPTT Coag (Bld) [Time] 59.8 s High 20.5-30.5 [facility] Comment on above: Performed By: #### C DP, PFA, CP, GLYHGB #### [address] [address] Corrosion Control Specialist: Savage Jacob MD aPTT Coag (Bld) [Time] 59.8 s High [place], [place] Interpretation and review of laboratory results Abnormal [place] Arterial Blood Gas, POCon Graham Test NOT REPORTED [place] FIO2 NOT REPORTED [place] Mode NOT REPORTED [place] Negative Base Excess, Art NOT REPORTED [place] O2 Device/Flow/% NOT REPORTED [place] POC HCO3 30.0 mmol/L High 21 - 28 mmol/L [place] POC O2 SAT 96 % 94 - 98 % [place] POC pCO2 36.0 [place] POC pCO2 Temp NOT REPORTED mm Hg [place] POC pH 7.529 High [place] POC pH Temp NOT REPORTED [place], [place] POC PO2 69.6 Low [place] POC pO2 Temp NOT REPORTED mm Hg [place] Positive Base Excess, Art 7 High [place], [place] Pt Temp NOT REPORTED [place] Sample Site Arterial Line [place] TCO2 (calc), Art 31 mmol/L High 22 - 29 mmol/L [place] Basic Metabolic Panelon 06-24 Anion gap [Moles/Vol] 13 mmol/L 9 - 17 mmol/L [place] Bun/Cre Ratio NOT REPORTED [place] Calcium [Mass/Vol] 8.5 mg/dL Low 8.6 - 10. 4 mg/dL [place] Chloride [Moles/Vol] 99 mmol/L 98 - 10 7 mmol/L [place] CO2 [Moles/Vol] 25 mmol/L 20 - 31 mmol/L [place] Creatinine [Mass/Vol] 1.34 mg/dL High 0.5 - 0.9 mg/dL [place] GFR 47 mL/min Low >60 [place], [place] GFR Comment [place] GFR Non- 39 mL/min Low >60 [place] GFR Staging NOT REPORTED [place], [place] Glucose [Mass/Vol] 234 mg/dL High 70 - 99 mg/dL [place], [place] Interpretation and review of laboratory results Abnormal [place] Potassium [Moles/Vol] 4.1 mmol/L 3.7 - 5.3 mmol/L [place] Sodium [Moles/Vol] 137 mmol/L 135 - 144 mmol/L [place] Urea nitrogen [Mass/Vol] 33 mg/dL High 8 - 23 mg/dL [place] Basic Metabolic Profon 07-17 (cont.) Normal [facility] Comment on above: Result Comment: Aver age GFR for 70 or more years old: 75 mL/min/1.73sq m Chronic Kidney Disease: <60 mL/min/1.73sq m Kidney failure: <15 mL/min/1.73sq m eGFR calculated using average adult body mass. Additional eGFR calculator available at: http://www.Dibsie/multiple_crcl_2012.htm Performed By: #### C DP, PFA, CP, GLYHGB #### [facility] [employer] [address] [place] [phone] Corrosion Control Specialist: Savage Jacob MD Anion gap [Moles/Vol] 13 mmol/L Normal 9-17 [facility] Comment on above: Performed By: #### C DP, PFA, CP, GLYHGB #### [address] [address] Corrosion Control Specialist: Savage Jacob MD Calcium [Mass/Vol] 8.5 mg/dL Low 8.6-10.4 [facility] Comment on above: Performed By: #### C DP, PFA, CP, GLYHGB #### [address] [address] Corrosion Control Specialist: Savage Jacob MD Chloride [Moles/Vol] 99 mmol/L Normal 98-107 [facility] Comment on above: Performed By: #### C DP, PFA, CP, GLYHGB #### [facility] [employer] [address] [place] [address] Corrosion Control Specialist: Savage Jacob MD CO2 [Moles/Vol] 25 mmol/L Normal 20-31 [facility] Comment on above: Performed By: #### C DP, PFA, CP, GLYHGB #### [facility] [employer] [address] [place] [address] Corrosion Control Specialist: Savage Jacob MD Creatinine [Mass/Vol] 1.34 mg/dL High 0.50-0.90 [facility] Comment on above: Performed By: #### C DP, PFA, CP, GLYHGB #### [facility] [address] [place] [phone] Corrosion Control Specialist: Savage Jacob MD GFR, Amer 47 mL/min Low >60 [facility] Comment on above: Performed By: #### C DP, PFA, CP, GLYHGB #### [facility] [employer] [address] [place] [address] Corrosion Control Specialist: Savage Jacob MD GFR,non Amer 39 mL/min Low >60 [facility] Comment on above: Performed By: #### C DP, PFA, CP, GLYHGB #### [facility] [employer] [address] [place] [address] Corrosion Control Specialist: Savage Jacob MD Glucose [Mass/Vol] 234 mg/dL High 70-99 [facility] Comment on above: Performed By: #### C DP, PFA, CP, GLYHGB #### [facility] [employer] [address] [place] [address] Corrosion Control Specialist: Savage Jacob MD Potassium [Moles/Vol] 4.1 mmol/L Normal 3.7-5.3 [facility] Comment on above: Performed By: #### C DP, PFA, CP, GLYHGB #### [facility] [employer] [address] [place] [address] Corrosion Control Specialist: Savage Jacob MD Sodium [Moles/Vol] 137 mmol/L Normal 135-144 [facility] Comment on above: Performed By: #### C DP, PFA, CP, GLYHGB #### [facility] [employer] [address] [place] [address] Corrosion Control Specialist: Savage Jacob MD Urea nitrogen [Mass/Vol] 33 mg/dL High 8-23 [facility] Comment on above: Performed By: #### C DP, PFA, CP, GLYHGB #### [address] [address] Corrosion Control Specialist: aSvage Jacob MD BUN/CRE Ratio NOT REPORTED Normal 02-09 [facility] Comment on above: Performed By: #### C DP, PFA, CP, GLYHGB #### [address] [address] Corrosion Control Specialist: Savage Jacob MD Staging: NOT REPORTED Normal [facility] Comment on above: Performed By: #### C DP, PFA, CP, GLYHGB #### [address] [address] Corrosion Control Specialist: Savage Jacob MD CBCon 07-17-2019 Erythrocyte distribution width (RBC) [Ratio] 15.4 % High 11.8-14.4 [facility] Comment on above: Performed By: #### C DP, PFA, CP, GLYHGB #### [address] [address] Corrosion Control Specialist: Savage Jacob MD Hematocrit (Bld) [Volume fraction] 24.1 % Low 36.3-47.1 [facility] Comment on above: Performed By: #### C DP, PFA, CP, GLYHGB #### [address] [address] Corrosion Control Specialist: Savage Jacob MD Hemoglobin (Bld) [Mass/Vol] 7.8 g/dL Low 11.9-15.1 [facility] Comment on above: Performed By: #### C DP, PFA, CP, GLYHGB #### [facility] [employer] [address] [place] [address] Corrosion Control Specialist: Savage Jacob MD MCH (RBC) [Entitic mass] 29.3 pg Normal 25.2-33.5 [facility] Comment on above: Performed By: #### C DP, PFA, CP, GLYHGB #### [address] [address] Corrosion Control Specialist: Savage Jacob MD MCHC (RBC) [Mass/Vol] 32.4 g/dL Normal 28.4-34.8 [facility] Comment on above: Performed By: #### C DP, PFA, CP, GLYHGB #### [address] [address] Corrosion Control Specialist: Savage Jacob MD MCV (RBC) [Entitic vol] 90.6 fL Normal 82.6-102.9 [facility] Comment on above: Performed By: #### C DP, PFA, CP, GLYHGB #### [address] [address] Corrosion Control Specialist: Savage Jacob MD NRBC Automated 0.9 per 100 WBC High 0.0 [facility] Comment on above: Performed By: #### C DP, PFA, CP, GLYHGB #### [address] [address] Corrosion Control Specialist: Savage Jacob MD Platelet mean volume (Bld) [Entitic vol] 10.5 fL Normal 8.1-13.5 [facility] Comment on above: Performed By: #### C DP, PFA, CP, GLYHGB #### [address] [address] Corrosion Control Specialist: Savage Jacob MD Platelets (Bld) [#/Vol] 216 10*3/uL Normal 138-453 [facility] Comment on above: Performed By: #### C DP, PFA, CP, GLYHGB #### [address] [address] Corrosion Control Specialist: Savage Jacob MD RBC (Bld) [#/Vol] 2.66 10*6/uL Low 3.95-5.11 [facility] Comment on above: Performed By: #### C DP, PFA, CP, GLYHGB #### [facility] [employer] [address] [place], [place] [phone] Corrosion Control Specialist: Savage Jacob MD WBC (Bld) [#/Vol] 19.2 10*3/uL High 3.5-11.3 [facility] Comment on above: Performed By: #### C DP, PFA, CP, GLYHGB #### [facility] [employer] [address] [place], [place] [phone] Corrosion Control Specialist: Savage Jacob MD Erythrocyte distribution width (RBC) [Ratio] 15.4 % High 11.8 - 14.4 % [place] Hematocrit (Bld) [Volume fraction] 24.1 % Low 36.3 - 47.1 % [place] Hemoglobin (Bld) [Mass/Vol] 7.8 g/dL Low 11.9 - 15.1 g/dL [place] Interpretation and review of laboratory results Abnormal [place] MCH (RBC) [Entitic mass] 29.3 pg 25.2 - 33.5 pg [place] MCHC (RBC) [Mass/Vol] 32.4 g/dL 28.4 - 34.8 g/dL [place] MCV (RBC) [Entitic vol] 90.6 fL 82.6 - 102.9 fL [place] Platelet mean volume (Bld) [Entitic vol] 10.5 fL 8.1 - 13.5 fL [place] Platelets (Bld) [#/Vol] 216 10*3/uL [place] RBC (Bld) [#/Vol] 2.66 10*6/uL Low 3.95 - 5.1 1 m/uL [place] WBC (Bld) [#/Vol] 19.2 10*3/uL [place] WBC (Bld) [#/Vol] 0.9 10*3/uL High 0.0 per 10 0 WBC [place] Cult,Bloodon 07-17-2019 Cult,Blood Specimen Description .BLOOD Special Requests L HAND 6CC Culture NO GROWTH 6 DAYS Report Status FINAL 07/17/2019 Normal [facility] Comment on above: Performed By: #### C DP, PFA, CP, GLYHGB #### [facility] [address] [place] [address] [phone] Corrosion Control Specialist: Savage Jacob MD Cult,Blood Specimen Description .BLOOD Special Requests R HAND 3CC Culture NO GROWTH 6 DAYS Report Status FINAL 07/17/2019 Normal [facility] Comment on above: Performed By: #### C DP, PFA, CP, GLYHGB #### [facility] [address] [place] [address] [phone] Corrosion Control Specialist: Savage Jacob MD Cult,Respiratoryon 0 Cult,Respiratory Specimen Description .SUCTIONED SPUTUM Special Requests NOT REPORTED Direct Exam < 10 EPITHELIAL CELLS/LPF >25 NEUTROPHILS/LPF PREDOMINANT ORGANISM: GRAM NEGATIVE RODS MIXED BACTERIAL MORPHOTYPES ALSO PRESENT ON GRAM STAIN. Culture YEAST, NOT SILVIO ALBICANS OR SILVIO DUBLINIENSIS HEAVY GROWTH NORMAL RESPIRATORY ROSEANNA SCANT GOWTH Report Status FINAL 07/17/2019 [facility] Comment on above: Performed By: #### C DP, PFA, CP, GLYHGB #### [facility] [address] [place] [phone] Corrosion Control Specialist: Savage Jacob MD Culture, Blood 1on 0 Special Requests L HAND 6CC [employer] [facility] [place], [place] Special Requests R HAND 3CC [employer] [facility] [place] Culture, Respiratoryon 07-17 Culture YEAST, NOT SILVIO ALBICANS OR SILVIO DUBLINIENSIS HEAVY GROWTH Abnormal [facility] [place] Culture NORMAL RESPIRATORY ROSEANNA SCANT GOWTH [facility] [employer] Direct Exam Negative Abnormal [facility] [employer] Direct Exam >25 NEUTROPHILS/LPF [facility] [employer] Direct Exam MIXED BACTERIAL MORPHOTYPES ALSO PRESENT ON GRAM STAIN. Abnormal [facility] [employer] Direct Exam < 10 EPITHELIAL CELLS/LPF [facility] [employer] Interpretation and review of laboratory results Abnormal [facility] [employer] Special Requests NOT REPORTED [place] Specimen Description .SUCTIONED SPUTUM [place] Magnesiumon 07-17-2019 Magnesium [Mass/Vol] 2.1 mg/dL Normal 1.6-2.6 [facility] Comment on above: Performed By: #### C DP, PFA, CP, GLYHGB #### [facility] [employer] [address] [place] [phone] Corrosion Control Specialist: Savage Jacob MD Magnesium [Mass/Vol] 2.1 mg/dL 1.6 - 2 .6 mg/dL [place] Otheron 07-17-2019 Culture NO GROWTH 6 DAYS [place], [place] Specimen Description .BLOOD [place], [place] Interpretation and review of laboratory results Abnormal [place], [place] POC Glucose Fingerstickon Interpretation and review of laboratory results Abnormal [place] POC Glucose 194 mg/dL High 65 - 105 mg/dL [place] Interpretation and review of laboratory results Abnormal [place] POC Glucose 165 mg/dL High 65 - 105 mg/dL [place] Interpretation and review of laboratory results Abnormal [place] POC Glucose 228 mg/dL High 65 - 105 mg/dL [place] Interpretation and review of laboratory results Abnormal [place], [place] POC Glucose 248 mg/dL High 65 - 105 mg/dL [place] POCT Glucoseon 07-17-2019 POC Glucose 246 mg/dL High 74 - 100 mg/dL [place] PTon 07-17-2019 INR Coag (PPP) [Relative time] 1.1 {INR} Normal [facility] Comment on above: Result Comment: Therapeutic Range: Moderate Anticoagulant Intensity: INR = 2.0-3.0 High Anticoagulant Intensity: INR = 2.5-3.5 Performed By: #### C DP, PFA, CP, GLYHGB #### [facility] [employer] [address] [place] [phone] Corrosion Control Specialist: Savage Jacob MD PT Coag (PPP) [Time] 11.4 s Normal 9.0-12.0 [facility] Comment on above: Performed By: #### C DP, PFA, CP, GLYHGB #### [facility] [employer] [facility] [place], [place] [phone] Corrosion Control Specialist: Savage Jacob MD Protime-INRon 07-17-2019 INR Coag (PPP) [Relative time] 1.1 {INR} [place] PT Coag (PPP) [Time] 11.4 s [place] XR CHEST PORTABLEon 07-17-19 XR CHEST PORTABLE EXAMINATION: ONE XRAY VIEW OF THE CHEST 07/17/2019 6:01 am COMPARISON: July 16, 2019, July 15, 2019 HISTORY: ORDERING SYSTEM PROVIDED HISTORY: POST CABG TECHNOLOGIST PROVIDED HISTORY: POST CABG Reason for Exam: uprt port Acuity: Unknown Type of Exam: Unknown FINDINGS: The endotracheal tube terminates in appropriate position above the janes. The enteric tube courses off the field of view in the upper abdomen. Left PICC line terminates at the distal SVC. The cardiac and mediastinal contours appear unchanged. Status post aortic valve replacement. Bilateral airspace disease with fluid along the left major fissure again demonstrated, however improved. Small left effusion. No new airspace disease or pneumothorax identified. IMPRESSION: 1. Endotracheal tube remains in appropriate position. The enteric tube courses off the field of view in the upper abdomen. 2. Interval improved aeration of the lungs with findings of mild residual edema and left effusion. Interpreted by: Morro Wheeler MD Signed by: Morro Wheeler MD 07/17/19 Final result Normal [facility], [facility], [place], [place] APTTon 07-16-2019 aPTT Coag (Bld) [Time] 57.8 s High 20.5-30.5 [facility] Comment on above: Performed By: #### C DP, PFA, CP, GLYHGB #### [facility] [employer] [address] [place], [place] [phone] Corrosion Control Specialist: Savage Jacob MD aPTT Coag (Bld) [Time] 57.8 s High [place], [place] Interpretation and review of laboratory results Abnormal [place] aPTT Coag (Bld) [Time] 49.3 s High 20.5-30.5 [facility] Comment on above: Performed By: #### C DP, PFA, CP, GLYHGB #### [facility] [employer] [address] [place] [phone] Corrosion Control Specialist: Savage Jacob MD aPTT Coag (Bld) [Time] 49.3 s High [place] Interpretation and review of laboratory results Abnormal [place] aPTT Coag (Bld) [Time] 46.7 s High 20.5-30.5 [facility] Comment on above: Performed By: #### C DP, PFA, CP, GLYHGB #### [facility] [employer] [address] [place] [phone] Corrosion Control Specialist: Savage Jacob MD aPTT Coag (Bld) [Time] 46.7 s High [place], [place] Interpretation and review of laboratory results Abnormal [place] Arterial Blood Gas, POCon Graham Test NOT APPLICABLE [place], [place] FIO2 40.0 [place] Mode PRVC [place] Negative Base Excess, Art NOT REPORTED [place] O2 Device/Flow/% Adult Ventilator [place], [place] POC HCO3 30.5 mmol/L High 21 - 28 mmol/L [place] POC O2 SAT 97 % 94 - 98 % [place] POC pCO2 38.3 [place] POC pCO2 Temp NOT REPORTED mm Hg [facility] [place] P[place] pH 7.509 High [place] POC pH Temp NOT REPORTED [place], [place] POC PO2 80.5 Low [place] POC pO2 Temp NOT REPORTED mm Hg [place] Positive Base Excess, Art 7 High [place], [place] Pt Temp NOT REPORTED [place], [place] Sample Site Arterial Line [place], [place] TCO2 (calc), Art 32 mmol/L High 22 - 29 mmol/L [place] BLOOD BANK SPECIMENon 2019 Blood Bank Specimen NOT REPORTED [place], [place] Basic Metabolic Panelon 06-24 Anion gap [Moles/Vol] 14 mmol/L 9 - 17 mmol/L [place] Bun/Cre Ratio NOT REPORTED [place] Calcium [Mass/Vol] 8.4 mg/dL Low 8.6 - 10. 4 mg/dL [place] Chloride [Moles/Vol] 99 mmol/L 98 - 10 7 mmol/L [place] CO2 [Moles/Vol] 26 mmol/L 20 - 31 mmol/L [place] Creatinine [Mass/Vol] 1.26 mg/dL High 0.5 - 0.9 mg/dL [place] GFR 51 mL/min Low >60 [place], [place] GFR Comment [place] GFR Non- 42 mL/min Low >60 [place] GFR Staging NOT REPORTED [place], [place] Glucose [Mass/Vol] 259 mg/dL High 70 - 99 mg/dL [place], [place] Interpretation and review of laboratory results Abnormal [place] Potassium [Moles/Vol] 3.9 mmol/L 3.7 - 5.3 mmol/L [place] Sodium [Moles/Vol] 139 mmol/L 135 - 144 mmol/L [place] Urea nitrogen [Mass/Vol] 26 mg/dL High 8 - 23 mg/dL [place] Basic Metabolic Profon 07-16 (cont.) Normal [facility] Comment on above: Result Comment: Aver age GFR for 70 or more years old: 75 mL/min/1.73sq m Chronic Kidney Disease: <60 mL/min/1.73sq m Kidney failure: <15 mL/min/1.73sq m eGFR calculated using average adult body mass. Additional eGFR calculator available at: http://www.[employer]/multiple_crcl_2012.htm Performed By: #### C DP, PFA, CP, GLYHGB #### [address] [address] Corrosion Control Specialist: Savage Jacob MD Anion gap [Moles/Vol] 14 mmol/L Normal 9-17 [facility] Comment on above: Performed By: #### C DP, PFA, CP, GLYHGB #### [place] [address] Corrosion Control Specialist: Savage Jacob MD Calcium [Mass/Vol] 8.4 mg/dL Low 8.6-10.4 [facility] Comment on above: Performed By: #### C DP, PFA, CP, GLYHGB #### [place] [address] Corrosion Control Specialist: Savage Jacob MD Chloride [Moles/Vol] 99 mmol/L Normal 98-107 [facility] Comment on above: Performed By: #### C DP, PFA, CP, GLYHGB #### [place] [address] Corrosion Control Specialist: Savage Jacob MD CO2 [Moles/Vol] 26 mmol/L Normal 20-31 [facility] Comment on above: Performed By: #### C DP, PFA, CP, GLYHGB #### [place] [address] Corrosion Control Specialist: Savage Jacob MD Creatinine [Mass/Vol] 1.26 mg/dL High 0.50-0.90 [facility] Comment on above: Performed By: #### C DP, PFA, CP, GLYHGB #### [facility] [employer] [address] [place] [phone] Corrosion Control Specialist: Savage Jacob MD GFR, Amer 51 mL/min Low >60 [facility] Comment on above: Performed By: #### C DP, PFA, CP, GLYHGB #### [facility] [employer] [facility] [place] [address] Corrosion Control Specialist: Savage Jacob MD GFR,non Amer 42 mL/min Low >60 [facility] Comment on above: Performed By: #### C DP, PFA, CP, GLYHGB #### [facility] [employer] [address] [place] [phone] Corrosion Control Specialist: Savage Jacob MD Glucose [Mass/Vol] 259 mg/dL High 70-99 [facility] Comment on above: Performed By: #### C DP, PFA, CP, GLYHGB #### [facility] [employer] [address] [place] [phone] Corrosion Control Specialist: Savage Jacob MD Potassium [Moles/Vol] 3.9 mmol/L Normal 3.7-5.3 [facility] Comment on above: Performed By: #### C DP, PFA, CP, GLYHGB #### [facility] [employer] [address] [place] [address] Corrosion Control Specialist: Savage Jacob MD Sodium [Moles/Vol] 139 mmol/L Normal 135-144 [facility] Comment on above: Performed By: #### C DP, PFA, CP, GLYHGB #### [facility] [employer] [address] [place] [phone] Corrosion Control Specialist: Savage Jacob MD Urea nitrogen [Mass/Vol] 26 mg/dL High 8-23 [facility] Comment on above: Performed By: #### C DP, PFA, CP, GLYHGB #### [facility] [employer] [address] [place] [phone] Corrosion Control Specialist: Savage Jacob MD BUN/CRE Ratio NOT REPORTED Normal 9-20 [facility] Comment on above: Performed By: #### C DP, PFA, CP, GLYHGB #### [facility] [employer] [address] [place] [phone] Corrosion Control Specialist: Savage Jacob MD Staging: NOT REPORTED Normal [facility] Comment on above: Performed By: #### C DP, PFA, CP, GLYHGB #### [address] [phone] Corrosion Control Specialist: Savage Jacob MD Blood Bank Specimenon 2019 Blood Bank Specimen NOT REPORTED Normal [facility] CBCon 07-16-2019 Erythrocyte distribution width (RBC) [Ratio] 14.9 % High 11.8-14.4 [facility] Comment on above: Performed By: #### C DP, PFA, CP, GLYHGB #### [address] [address] Corrosion Control Specialist: Savage Jacob MD Hematocrit (Bld) [Volume fraction] 22.7 % Low 36.3-47.1 [facility] Comment on above: Performed By: #### C DP, PFA, CP, GLYHGB #### [address] [address] Corrosion Control Specialist: Savage Jacob MD Hemoglobin (Bld) [Mass/Vol] 7.0 g/dL Critically low 11.9-15.1 [facility] Comment on above: Performed By: #### C DP, PFA, CP, GLYHGB #### [address] [address] Corrosion Control Specialist: Savage Jacob MD MCH (RBC) [Entitic mass] 28.1 pg Normal 25.2-33.5 [facility] Comment on above: Performed By: #### C DP, PFA, CP, GLYHGB #### [address] [address] Corrosion Control Specialist: Savage Jacob MD MCHC (RBC) [Mass/Vol] 30.8 g/dL Normal 28.4-34.8 [facility] Comment on above: Performed By: #### C DP, PFA, CP, GLYHGB #### [address] [address] Corrosion Control Specialist: Savage Jacob MD MCV (RBC) [Entitic vol] 91.2 fL Normal 82.6-102.9 [facility] Comment on above: Performed By: #### C DP, PFA, CP, GLYHGB #### [address] [address] Corrosion Control Specialist: Savage Jacob MD NRBC Automated 0.4 per 100 WBC High 0.0 [facility] Comment on above: Performed By: #### C DP, PFA, CP, GLYHGB #### [address] [address] Corrosion Control Specialist: Savage Jacob MD Platelet mean volume (Bld) [Entitic vol] 10.1 fL Normal 8.1-13.5 [facility] Comment on above: Performed By: #### C DP, PFA, CP, GLYHGB #### [address] [address] Corrosion Control Specialist: Savage Jacob MD Platelets (Bld) [#/Vol] 218 10*3/uL Normal 138-453 [facility] Comment on above: Performed By: #### C DP, PFA, CP, GLYHGB #### [address] [address] Corrosion Control Specialist: Savage Jacob MD RBC (Bld) [#/Vol] 2.49 10*6/uL Low 3.95-5.11 [facility] Comment on above: Performed By: #### C DP, PFA, CP, GLYHGB #### [address] [address] Corrosion Control Specialist: Savage Jacob MD WBC (Bld) [#/Vol] 19.4 10*3/uL High 3.5-11.3 [facility] Comment on above: Performed By: #### C DP, PFA, CP, GLYHGB #### [facility] [employer] [address] [place] [address] Corrosion Control Specialist: Savage Jacob MD Erythrocyte distribution width (RBC) [Ratio] 14.9 % High 11.8 - 14.4 % [place] Hematocrit (Bld) [Volume fraction] 22.7 % Low 36.3 - 47.1 % [place] Hemoglobin (Bld) [Mass/Vol] 7.0 g/dL Critically low 11.9 - 15.1 g/dL [place] Interpretation and review of laboratory results Abnormal [place] MCH (RBC) [Entitic mass] 28.1 pg 25.2 - 33.5 pg [place] MCHC (RBC) [Mass/Vol] 30.8 g/dL 28.4 - 34.8 g/dL [place] MCV (RBC) [Entitic vol] 91.2 fL 82.6 - 102.9 fL [place] Platelet mean volume (Bld) [Entitic vol] 10.1 fL 8.1 - 13.5 fL [place] Platelets (Bld) [#/Vol] 218 10*3/uL [place] RBC (Bld) [#/Vol] 2.49 10*6/uL Low 3.95 - 5.1 1 m/uL [place] WBC (Bld) [#/Vol] 0.4 10*3/uL High 0.0 per 10 0 WBC [place] WBC (Bld) [#/Vol] 19.4 10*3/uL [place] Inf Dis Interventionon 07-16 Intervention: Expand Empiric Coverage Normal [facility] Comment on above: Performed By: #### C DP, PFA, CP, GLYHGB #### [facility] [employer] [address] [place] [address] Corrosion Control Specialist: Savage Jacob MD Infectious Disease Intervent ionon 07-16-2019 Intervention Expand Empiric Coverage [place] MRI BRAIN W WO CONTRASTon MRI BRAIN W WO CONTRAST EXAMINATION: MRI OF THE BRAIN WITHOUT AND WITH CONTRAST; MRI OF THE CERVICAL SPINE WITHOUT CONTRAST 07/16/2019 5:00 pm TECHNIQUE: Multiplanar multisequence MRI of the head/brain was performed without and with the administration of intravenous contrast.; Multiplanar multisequence MRI of the cervical spine was performed without the administration of intravenous contrast. COMPARISON: Comparison brain from July 12 HISTORY: ORDERING SYSTEM PROVIDED HISTORY: AMS TECHNOLOGIST PROVIDED HISTORY: AMS Reason for Exam: ams; ORDERING SYSTEM PROVIDED HISTORY: encephalopathy, deficits TECHNOLOGIST PROVIDED HISTORY: encephalopathy, deficits FINDINGS: INTRACRANIAL STRUCTURES/VENTRICLES : Ventricles are stable in size and configuration. Large area of right posterior temporal occipital high T2 and FLAIR signal is again noted involving cortex and white matter. Faint curvilinear high FLAIR signal along the surface of the right posterior temporal occipital parenchyma is again noted. Hazy increased T2/FLAIR signal is noted in the cristi. Hazy increased T2 signal in the thalami is again noted. Multifocal high T2 and FLAIR signal is noted bilaterally in the lentiform nuclei and caudate as well as in the periventricular and subcortical white matter bilaterally. Multiple old lacunar infarcts are noted. Several small foci of dark gradient echo signal in the right posterior temporal region are noted. Multifocal high diffusion signal in the right temporal occipital region is slightly decreased in conspicuity. Multiple tiny foci of high diffusion signal in the periventricular and subcortical white matter bilaterally are decreased in conspicuity. Previously noted cerebellar high diffusion signal is decreased in conspicuity. No new areas of restricted diffusion signal are noted. Multifocal ill-defined high T1 signal in the right posterolateral temporal lobe is noted as well as at the right posterior temporal occipital junction. Multifocal right temporal lobe enhancement is noted. Multifocal enhancement is noted extending into the right occipital lobe. A tiny focus of questionable right parietal enhancement. ORBITS: No acute orbital abnormality is noted SINUSES: There is a large amount of bilateral mastoid opacification. This is increased. BONES/SOFT TISSUES: No acute bone or soft tissue abnormality is noted new MRI cervical spine: Bones: Only 3 sagittal STIR images were provided. There is slight loss of the normal lordotic curvature in the cervical spine. There is no acute displaced fracture. Facets overlap bilaterally at every level on the sagittal T1 and T images. Spinal cord: There is a small focus of increased T2 signal in the rightward aspect of the cord at the C3-4 level. No other areas of abnormal cord signal hyperintensity are noted. Soft tissues: Prevertebral soft tissues are normal in thickness. There is no mass or fluid collection. There is no adenopathy. Enteric tube is noted. C2-3: Minimal disc bulging is noted. Minimal endplate and mild facet hypertrophic changes are noted C3-4: Mild disc bulging is noted. There is a small right paracentral protrusion. Endplate and facet hypertrophic changes are noted. There is [id number] right greater than left foraminal narrowing. C4-5: Mild diffuse disc bulging is noted. Endplate and facet hypertrophic changes are noted. Mild foraminal narrowing is noted, greater on the right. C5-6: Diffuse disc bulging is noted. There is a broad-based central and left paracentral protrusion. Endplate and facet hypertrophic changes are noted. Ventral cord compression is noted with severe narrowing of the canal. Bilateral severe foraminal narrowing is noted. C6-7: Diffuse disc bulging is noted with a broad-based central and left paracentral disc protrusion/herniation . There is upward migration of extruded disc material. There is also downward migration of extruded disc material at the midline and left of midline. There is associated cord compression, greatest left of midline. There is moderate to severe narrowing of the canal left of midline. Moderate proximal foraminal narrowing on the left is noted. Mild proximal foraminal narrowing on the right is noted. Endplate and facet hypertrophic changes are noted. C7-T1: Minimal disc bulging is noted. Endplate and facet hypertrophic changes are noted. Bilateral pleural effusions are noted. IMPRESSION: MRI brain: Slight decrease in conspicuity of multifocal recent infarcts. There is multifocal enhancement associated with the right posterior temporal occipital infarct compatible with subacute infarct. There is also a small amount of developing high T1 signal and decreased gradient echo signal suggesting petechial hemorrhagic staining. Multiple old infarcts Multifocal small-vessel ischemic change MRI cervical spine: Multilevel degenerative disc disease, greatest between C4 and C6-7. See above for details of each level. High signal in the rightward aspect of the cord at C3-4. This is age indeterminate and may be due to developing myelomalacia from cord compression below this level. Another consideration would be recent cord ischemic change. Other etiologies, to include neoplasm and transverse myelitis, for high signal in the cord are considered less likely at this time. Follow-up is recommended. Interpreted by: Jaimee Avila MD Signed by: Jaimee Avila MD 07/16/19 Final result Normal [facility] MRI CERVICAL SPINE WO CONTRA STon 07-16-2019 MRI CERVICAL SPINE WO CONTRAST EXAMINATION: MRI OF THE BRAIN WITHOUT AND WITH CONTRAST; MRI OF THE CERVICAL SPINE WITHOUT CONTRAST 07/16/2019 5:00 pm TECHNIQUE: Multiplanar multisequence MRI of the head/brain was performed without and with the administration of intravenous contrast.; Multiplanar multisequence MRI of the cervical spine was performed without the administration of intravenous contrast. COMPARISON: Comparison brain from July 12 HISTORY: ORDERING SYSTEM PROVIDED HISTORY: AMS TECHNOLOGIST PROVIDED HISTORY: AMS Reason for Exam: ams; ORDERING SYSTEM PROVIDED HISTORY: encephalopathy, deficits TECHNOLOGIST PROVIDED HISTORY: encephalopathy, deficits FINDINGS: INTRACRANIAL STRUCTURES/VENTRICLES : Ventricles are stable in size and configuration. Large area of right posterior temporal occipital high T2 and FLAIR signal is again noted involving cortex and white matter. Faint curvilinear high FLAIR signal along the surface of the right posterior temporal occipital parenchyma is again noted. Hazy increased T2/FLAIR signal is noted in the cristi. Hazy increased T2 signal in the thalami is again noted. Multifocal high T2 and FLAIR signal is noted bilaterally in the lentiform nuclei and caudate as well as in the periventricular and subcortical white matter bilaterally. Multiple old lacunar infarcts are noted. Several small foci of dark gradient echo signal in the right posterior temporal region are noted. Multifocal high diffusion signal in the right temporal occipital region is slightly decreased in conspicuity. Multiple tiny foci of high diffusion signal in the periventricular and subcortical white matter bilaterally are decreased in conspicuity. Previously noted cerebellar high diffusion signal is decreased in conspicuity. No new areas of restricted diffusion signal are noted. Multifocal ill-defined high T1 signal in the right posterolateral temporal lobe is noted as well as at the right posterior temporal occipital junction. Multifocal right temporal lobe enhancement is noted. Multifocal enhancement is noted extending into the right occipital lobe. A tiny focus of questionable right parietal enhancement. ORBITS: No acute orbital abnormality is noted SINUSES: There is a large amount of bilateral mastoid opacification. This is increased. BONES/SOFT TISSUES: No acute bone or soft tissue abnormality is noted new MRI cervical spine: Bones: Only 3 sagittal STIR images were provided. There is slight loss of the normal lordotic curvature in the cervical spine. There is no acute displaced fracture. Facets overlap bilaterally at every level on the sagittal T1 and T images. Spinal cord: There is a small focus of increased T2 signal in the rightward aspect of the cord at the C3-4 level. No other areas of abnormal cord signal hyperintensity are noted. Soft tissues: Prevertebral soft tissues are normal in thickness. There is no mass or fluid collection. There is no adenopathy. Enteric tube is noted. C2-3: Minimal disc bulging is noted. Minimal endplate and mild facet hypertrophic changes are noted C3-4: Mild disc bulging is noted. There is a small right paracentral protrusion. Endplate and facet hypertrophic changes are noted. There is [id number] right greater than left foraminal narrowing. C4-5: Mild diffuse disc bulging is noted. Endplate and facet hypertrophic changes are noted. Mild foraminal narrowing is noted, greater on the right. C5-6: Diffuse disc bulging is noted. There is a broad-based central and left paracentral protrusion. Endplate and facet hypertrophic changes are noted. Ventral cord compression is noted with severe narrowing of the canal. Bilateral severe foraminal narrowing is noted. C6-7: Diffuse disc bulging is noted with a broad-based central and left paracentral disc protrusion/herniation . There is upward migration of extruded disc material. There is also downward migration of extruded disc material at the midline and left of midline. There is associated cord compression, greatest left of midline. There is moderate to severe narrowing of the canal left of midline. Moderate proximal foraminal narrowing on the left is noted. Mild proximal foraminal narrowing on the right is noted. Endplate and facet hypertrophic changes are noted. C7-T1: Minimal disc bulging is noted. Endplate and facet hypertrophic changes are noted. Bilateral pleural effusions are noted. IMPRESSION: MRI brain: Slight decrease in conspicuity of multifocal recent infarcts. There is multifocal enhancement associated with the right posterior temporal occipital infarct compatible with subacute infarct. There is also a small amount of developing high T1 signal and decreased gradient echo signal suggesting petechial hemorrhagic staining. Multiple old infarcts Multifocal small-vessel ischemic change MRI cervical spine: Multilevel degenerative disc disease, greatest between C4 and C6-7. See above for details of each level. High signal in the rightward aspect of the cord at C3-4. This is age indeterminate and may be due to developing myelomalacia from cord compression below this level. Another consideration would be recent cord ischemic change. Other etiologies, to include neoplasm and transverse myelitis, for high signal in the cord are considered less likely at this time. Follow-up is recommended. Interpreted by: Jaimee Avila MD Signed by: Jaimee Avila MD 07/16/19 Final result Normal [facility] Magnesiumon 07-16-2019 Magnesium [Mass/Vol] 2.0 mg/dL Normal 1.6-2.6 [facility] Comment on above: Performed By: #### C DP, PFA, CP, GLYHGB #### [facility] [employer] [facility] [place], [place] [id number] Corrosion Control Specialist: Savage Jacob MD Magnesium [Mass/Vol] 2.0 mg/dL 1.6 - 2 .6 mg/dL [place] Otheron 07-16-2019 [place], [place] Interpretation and review of laboratory results Abnormal [place] POC Glucose Fingerstickon Interpretation and review of laboratory results Abnormal [place] P[place] Glucose 157 mg/dL High 65 - 105 mg/dL [place] Interpretation and review of laboratory results Abnormal [place] POC Glucose 158 mg/dL High 65 - 105 mg/dL [place] Interpretation and review of laboratory results Abnormal [place] POC Glucose 232 mg/dL High 65 - 105 mg/dL [place] Interpretation and review of laboratory results Abnormal [place] POC Glucose 240 mg/dL High 65 - 105 mg/dL [place] POCT Glucoseon 07-16-2019 POC Glucose 269 mg/dL High 74 - 100 mg/dL [place] PTon 07-16-2019 INR Coag (PPP) [Relative time] 1.1 {INR} Normal [facility] Comment on above: Result Comment: Therapeutic Range: Moderate Anticoagulant Intensity: INR = 2.0-3.0 High Anticoagulant Intensity: INR = 2.5-3.5 Performed By: #### C DP, PFA, CP, GLYHGB #### [facility] [employer] [address] [place] [id number] Corrosion Control Specialist: Savage Jacob MD PT Coag (PPP) [Time] 11.9 s Normal 9.0-12.0 [facility] Comment on above: Performed By: #### C DP, PFA, CP, GLYHGB #### [facility] [employer] [address] [place] [phone] Corrosion Control Specialist: Savage Jacob MD Phosphoruson 07-16-2019 Phosphate [Mass/Vol] 3.0 mg/dL 2.6 - 4 .5 mg/dL [place] Phosphorus, Inorg.on 020 Phosphorus, Inorg. 3.0 mg/dL Normal 2.6-4.5 [facility] Comment on above: Performed By: #### C DP, PFA, CP, GLYHGB #### [facility] [employer] [address] [place] [phone] Corrosion Control Specialist: Savage Jacob MD Protime-INRon 07-16-2019 INR Coag (PPP) [Relative time] 1.1 {INR} [place] PT Coag (PPP) [Time] 11.9 s [place], [place] Type + Screenon 07-16-2019 Type + Screen Sample Expiration 07/19/2019,2359 Arm Band Number [id number] ABO/Rh(D) A POSITIVE Antibody Screen POSITIVE Antibody Ident Anti-E Present Anti-c Present NASREEN, Anti-IgG Viky Serum NEGATIVE Antigen Type,Patient Negative for E Antigen Negative for Cortes(B) Antigen Negative for c Antigen Unit Number [id number] Blood Component Type Leukocyte Reduced Red Cell Unit Division 00 Status of Unit REL FROM ALLOC Transfusion Status DO NOT ISSUE FOR TRANSFUSION Crossmatch Result INCOMPATIBLE Unit Number [id number] Blood Component Type Leukocyte Reduced Red Cell Unit Division 00 Status of Unit REL FROM ALLOC Transfusion Status DO NOT ISSUE FOR TRANSFUSION Crossmatch Result INCOMPATIBLE Unit Number [id number] Blood Component Type Leukocyte Reduced Red Cell Unit Division 00 Status of Unit TRANSFUSED Transfusion Status OK TO TRANSFUSE Crossmatch Result COMPATIBLE Unit Number [id number] Blood Component Type Leukocyte Reduced Red Cell Unit Division 00 Status of Unit REL FROM ALLOC Transfusion Status OK TO TRANSFUSE Crossmatch Result COMPATIBLE Unit Number [id number] Blood Component Type Leukocyte Reduced Red Cell Unit Division 00 Status of Unit REL FROM ALLOC Transfusion Status OK TO TRANSFUSE Crossmatch Result COMPATIBLE Normal [facility] Comment on above: Performed By: #### C DP, PFA, CP, GLYHGB #### [facility] [address] [place] [address] Corrosion Control Specialist: Savage Jacob MD XR CHEST PORTABLEon 07-16-19 XR CHEST PORTABLE EXAMINATION: ONE XRAY VIEW OF THE CHEST 07/15/2019 5:54 am COMPARISON: 07/14/2019 HISTORY: ORDERING SYSTEM PROVIDED HISTORY: POST CABG TECHNOLOGIST PROVIDED HISTORY: POST CABG Reason for Exam: post CABG Acuity: Unknown Respiratory failure. Recent coronary artery bypass graft surgery. FINDINGS: Due to positioning, the tip of the ET tube is not well seen but may project about 2 cm above the janes. Consider repeat imaging. Enteric tube passes beneath diaphragm. Left upper extremity PICC. Multifocal pulmonary opacities slightly worsened particularly in the left mid lung and perihilar right lung. Removal of the right subclavian line. IMPRESSION: Interval advancement of the enteric tube and the tip is not well seen. To be safe, retraction of the tube 1-1.5 cm may be useful to ensure it is separate from the carinal region. Slight worsening in multifocal airspace disease. The findings were sent to the Radiology Results Communication Center at 6:46 am on 07/15/2019to be communicated to a licensed caregiver. Interpreted by: Cyril Warner MD Signed by: Cyril Warner MD 07/16/19 Final result Normal [facility] XR CHEST PORTABLE EXAMINATION: ONE XRAY VIEW OF THE CHEST 07/16/2019 5:41 am COMPARISON: 07/15/2019 HISTORY: ORDERING SYSTEM PROVIDED HISTORY: POST CABG TECHNOLOGIST PROVIDED HISTORY: POST CABG Reason for Exam: post CABG Acuity: Chronic FINDINGS: ETT in place terminating about 1.5 cm above janes. There are numerous is support lis overlying the chest more than on the previous. There is left PICC line terminating projected in the right atrium unchanged. Enteric tube is seen coursing into the stomach. Low lung volume. Borderline cardiomegaly. Patchy bilateral interstitial and airspace opacities shows some improvement from prior. Appearance suggestive of pulmonary edema and areas of subsegmental atelectasis. No definite pleural effusion. No pneumothorax. Bones grossly intact. IMPRESSION: 1. Support tubes and line remain in place. 2. Resolving interstitial and airspace opacities suggest improving pulmonary edema and subsegmental atelectasis. Interpreted by: Caro Hutchinson MD Signed by: Caro Hutchinson MD 07/16/19 Final result Normal [facility], [facility], [facility], [facility], [facility], [place], [place] AMMONIAon 07-15-2019 Ammonia (P) [Mass/Vol] 41 umol/L 11 - 51 umol/L [place] APTTon 07-15-2019 aPTT Coag (Bld) [Time] 49.1 s High 20.5-30.5 [facility] Comment on above: Performed By: #### C DP, PFA, CP, GLYHGB #### [facility] [employer] [address] [place] [id number] Corrosion Control Specialist: Savage Jacob MD aPTT Coag (Bld) [Time] s Critically high 20.5-30. 5 [facility] Comment on above: Performed By: #### C DP, PFA, CP, GLYHGB #### [facility] [employer] [address] [place] [id number] Corrosion Control Specialist: Savage Jacob MD aPTT Coag (Bld) [Time] 49.1 s High [place], [place] Interpretation and review of laboratory results Abnormal [place] aPTT Coag (Bld) [Time] s Critically high [place] Interpretation and review of laboratory results Abnormal [place] aPTT Coag (Bld) [Time] 52.6 s High 20.5-30.5 [facility] Comment on above: Performed By: #### C DP, PFA, CP, GLYHGB #### [facility] [employer] [facility] [place], [place] [phone] Corrosion Control Specialist: Savage Jacob MD aPTT Coag (Bld) [Time] 52.6 s High [place] Interpretation and review of laboratory results Abnormal [place] Ammoniaon 07-15-2019 Ammonia (P) [Mass/Vol] 41 umol/L Normal 11-51 [facility] Comment on above: Performed By: #### C DP, PFA, CP, GLYHGB #### [facility] [employer] [facility] [place] [address] Corrosion Control Specialist: Savage Jacob MD Arterial Blood Gas, POCon Graham Test NOT APPLICABLE [place] FIO2 40.0 [place] Interpretation and review of laboratory results Abnormal [place] Mode PRVC [place] Negative Base Excess, Art NOT REPORTED [place] O2 Device/Flow/% Adult Ventilator [place] POC HCO3 31.4 mmol/L High 21 - 28 mmol/L [place] P[place] O2 SAT 96 % 94 - 98 % [place] pCO2 41.2 [place] pCO2 Temp NOT REPORTED mm Hg [place] P[place] pH 7.491 High [place] POC pH Temp NOT REPORTED [place] POC PO2 72.4 Low [place] pO2 Temp NOT REPORTED mm Hg [place] Positive Base Excess, Art 7 High [place] Pt Temp NOT REPORTED [place] Sample Site Arterial Line [place] TCO2 (calc), Art 33 mmol/L High 22 - 29 mmol/L [place] BASIC METABOLIC PANELon 06-24 Anion gap [Moles/Vol] 11 mmol/L 9 - 17 mmol/L [place] Bun/Cre Ratio NOT REPORTED [place] Calcium [Mass/Vol] 7.9 mg/dL Low 8.6 - 10. 4 mg/dL [place] Chloride [Moles/Vol] 99 mmol/L 98 - 10 7 mmol/L [place] CO2 [Moles/Vol] 27 mmol/L 20 - 31 mmol/L [place] Creatinine [Mass/Vol] 1.22 mg/dL High 0.5 - 0.9 mg/dL [place] GFR 53 mL/min Low >60 [place] GFR Comment [place] GFR Non- 44 mL/min Low >60 [place] GFR Staging NOT REPORTED [place], [place] Glucose [Mass/Vol] 307 mg/dL High 70 - 99 mg/dL [place], [place] Interpretation and review of laboratory results Abnormal [place] Potassium [Moles/Vol] 3.5 mmol/L Low 3.7 - 5.3 mmol/L [place] Sodium [Moles/Vol] 137 mmol/L 135 - 144 mmol/L [place] Urea nitrogen [Mass/Vol] 23 mg/dL 8 - 23 mg/dL [place] Basic Metabolic Panelon 02-2 Anion gap [Moles/Vol] 13 mmol/L 9 - 17 mmol/L [place] Bun/Cre Ratio NOT REPORTED [place] Calcium [Mass/Vol] 8.5 mg/dL Low 8.6 - 10. 4 mg/dL [place] Chloride [Moles/Vol] 98 mmol/L 98 - 10 7 mmol/L [place] CO2 [Moles/Vol] 28 mmol/L 20 - 31 mmol/L [place] Creatinine [Mass/Vol] 1.17 mg/dL High 0.5 - 0.9 mg/dL [place] GFR 55 mL/min Low >60 [place] GFR Comment [place] GFR Non- 46 mL/min Low >60 [place] GFR Staging NOT REPORTED [place] Glucose [Mass/Vol] 294 mg/dL High 70 - 99 mg/dL [place] Interpretation and review of laboratory results Abnormal [place] Potassium [Moles/Vol] 3.5 mmol/L Low 3.7 - 5.3 mmol/L [place] Sodium [Moles/Vol] 139 mmol/L 135 - 144 mmol/L [place] Urea nitrogen [Mass/Vol] 23 mg/dL 8 - 23 mg/dL [place] Basic Metabolic Profon 07-15 (cont.) Normal [facility] Comment on above: Result Comment: Aver age GFR for 70 or more years old: 75 mL/min/1.73sq m Chronic Kidney Disease: <60 mL/min/1.73sq m Kidney failure: <15 mL/min/1.73sq m eGFR calculated using average adult body mass. Additional eGFR calculator available at: [email or web address] Performed By: #### C DP, PFA, CP, GLYHGB #### [facility] [employer] [address] [place] [address] Corrosion Control Specialist: Savage Jacob MD Anion gap [Moles/Vol] 11 mmol/L Normal 9-17 [facility] Comment on above: Performed By: #### C DP, PFA, CP, GLYHGB #### [facility] Center[facility] Pharm[facility] [address] [place] [address] [phone] Corrosion Control Specialist: Savage Jacob MD Calcium [Mass/Vol] 7.9 mg/dL Low 8.6-10.4 [facility] Comment on above: Performed By: #### C DP, PFA, CP, GLYHGB #### [facility] [employer] [address] [place] [phone] Corrosion Control Specialist: Savage Jacob MD Chloride [Moles/Vol] 99 mmol/L Normal 98-107 [facility] Comment on above: Performed By: #### C DP, PFA, CP, GLYHGB #### [address] [address] Corrosion Control Specialist: Savage Jacob MD CO2 [Moles/Vol] 27 mmol/L Normal 20-31 [facility] Comment on above: Performed By: #### C DP, PFA, CP, GLYHGB #### [place] [address] Corrosion Control Specialist: Savage Jacob MD Creatinine [Mass/Vol] 1.22 mg/dL High 0.50-0.90 [facility] Comment on above: Performed By: #### C DP, PFA, CP, GLYHGB #### [address] [address] Corrosion Control Specialist: Savage Jacob MD GFR, Amer 53 mL/min Low >60 [facility] Comment on above: Performed By: #### C DP, PFA, CP, GLYHGB #### [address] [address] Corrosion Control Specialist: Savage Jacob MD GFR,non Amer 44 mL/min Low >60 [facility] Comment on above: Performed By: #### C DP, PFA, CP, GLYHGB #### [place] [address] Corrosion Control Specialist: Savage Jacob MD Glucose [Mass/Vol] 307 mg/dL High 70-99 [facility] Comment on above: Performed By: #### C DP, PFA, CP, GLYHGB #### [address] [address] Corrosion Control Specialist: Savage Jacob MD Potassium [Moles/Vol] 3.5 mmol/L Low 3.7-5.3 [facility] Comment on above: Performed By: #### C DP, PFA, CP, GLYHGB #### [facility] [address] [place] [phone] Corrosion Control Specialist: Savage Jacob MD Sodium [Moles/Vol] 137 mmol/L Normal 135-144 [facility] Comment on above: Performed By: #### C DP, PFA, CP, GLYHGB #### [facility] [employer] [address] [place] [phone] Corrosion Control Specialist: Savage Jacob MD Urea nitrogen [Mass/Vol] 23 mg/dL Normal 8-23 [facility] Comment on above: Performed By: #### C DP, PFA, CP, GLYHGB #### [facility] [employer] [address] [place] [phone] Corrosion Control Specialist: Savage Jacob MD BUN/CRE Ratio NOT REPORTED Normal 9-20 [facility] Comment on above: Performed By: #### C DP, PFA, CP, GLYHGB #### [facility] [address] [place] [phone] Corrosion Control Specialist: Savage Jacob MD Staging: NOT REPORTED Normal [facility] Comment on above: Performed By: #### C DP, PFA, CP, GLYHGB #### [address] [address] Corrosion Control Specialist: Savage Jacob MD (cont.) Normal [facility] Comment on above: Result Comment: Aver age GFR for 70 or more years old: 75 mL/min/1.73sq m Chronic Kidney Disease: <60 mL/min/1.73sq m Kidney failure: <15 mL/min/1.73sq m eGFR calculated using average adult body mass. Additional eGFR calculator available at: [email or web address]_[email or web address] Performed By: #### C DP, PFA, CP, GLYHGB #### [facility] [employer] [address] [place] [phone] Corrosion Control Specialist: Savage Jacob MD Anion gap [Moles/Vol] 13 mmol/L Normal 9-17 [facility] Comment on above: Performed By: #### C DP, PFA, CP, GLYHGB #### [facility] [employer] [address] [place] [phone] Corrosion Control Specialist: Savage Jacob MD Calcium [Mass/Vol] 8.5 mg/dL Low 8.6-10.4 [facility] Comment on above: Performed By: #### C DP, PFA, CP, GLYHGB #### [address] [address] Corrosion Control Specialist: Savage Jacob MD Chloride [Moles/Vol] 98 mmol/L Normal 98-107 [facility] Comment on above: Performed By: #### C DP, PFA, CP, GLYHGB #### [facility] [employer] [address] [place] [phone] Corrosion Control Specialist: Savage Jacob MD CO2 [Moles/Vol] 28 mmol/L Normal 20-31 [facility] Comment on above: Performed By: #### C DP, PFA, CP, GLYHGB #### [facility] [employer] [address] [place] [phone] Corrosion Control Specialist: Savage Jacob MD Creatinine [Mass/Vol] 1.17 mg/dL High 0.50-0.90 [facility] Comment on above: Performed By: #### C DP, PFA, CP, GLYHGB #### [facility] [employer] [address] [place] [phone] Corrosion Control Specialist: Savage Jacob MD GFR, Amer 55 mL/min Low >60 [facility] Comment on above: Performed By: #### C DP, PFA, CP, GLYHGB #### [facility] [employer] [address] [place] [phone] Corrosion Control Specialist: Savage Jacob MD GFR,non Amer 46 mL/min Low >60 [facility] Comment on above: Performed By: #### C DP, PFA, CP, GLYHGB #### [facility] [employer] [address] [place] [phone] Corrosion Control Specialist: Savage Jacob MD Glucose [Mass/Vol] 294 mg/dL High 70-99 [facility] Comment on above: Performed By: #### C DP, PFA, CP, GLYHGB #### [facility] [employer] [address] [place] [phone] Corrosion Control Specialist: Savage Jacob MD Potassium [Moles/Vol] 3.5 mmol/L Low 3.7-5.3 [facility] Comment on above: Performed By: #### C DP, PFA, CP, GLYHGB #### [address] [address] Corrosion Control Specialist: Savage Jacob MD Sodium [Moles/Vol] 139 mmol/L Normal 135-144 [facility] Comment on above: Performed By: #### C DP, PFA, CP, GLYHGB #### [address] [address] Corrosion Control Specialist: Savage Jacob MD Urea nitrogen [Mass/Vol] 23 mg/dL Normal 8-23 [facility] Comment on above: Performed By: #### C DP, PFA, CP, GLYHGB #### [facility] [employer] [address] [place] [phone] Corrosion Control Specialist: Savage Jacob MD BUN/CRE Ratio NOT REPORTED Normal 9-20 [facility] Comment on above: Performed By: #### C DP, PFA, CP, GLYHGB #### [facility] [employer] [address] [place] [phone] Corrosion Control Specialist: Savage Jacob MD Staging: NOT REPORTED Normal [facility] Comment on above: Performed By: #### C DP, PFA, CP, GLYHGB #### [facility] [employer] [address] [place] [address] Corrosion Control Specialist: Savage Jacob MD CBCon 07-15-2019 Erythrocyte distribution width (RBC) [Ratio] 15.0 % High 11.8-14.4 [facility] Comment on above: Performed By: #### C DP, PFA, CP, GLYHGB #### [facility] [employer] [address] [place] [phone] Corrosion Control Specialist: Savage Jacob MD Hematocrit (Bld) [Volume fraction] 23.8 % Low 36.3-47.1 [facility] Comment on above: Performed By: #### C DP, PFA, CP, GLYHGB #### [facility] [employer] [address] [place] [phone] Corrosion Control Specialist: Savage Jacob MD Hemoglobin (Bld) [Mass/Vol] 7.3 g/dL Low 11.9-15.1 [facility] Comment on above: Performed By: #### C DP, PFA, CP, GLYHGB #### [facility] [employer] [address] [place] [address] Corrosion Control Specialist: Savage Jacob MD MCH (RBC) [Entitic mass] 29.0 pg Normal 25.2-33.5 [facility] Comment on above: Performed By: #### C DP, PFA, CP, GLYHGB #### [facility] [employer] [address] [place] [phone] Corrosion Control Specialist: Savage Jacob MD MCHC (RBC) [Mass/Vol] 30.7 g/dL Normal 28.4-34.8 [facility] Comment on above: Performed By: #### C DP, PFA, CP, GLYHGB #### [facility] [employer] [address] [place] [phone] Corrosion Control Specialist: Savage Jacob MD MCV (RBC) [Entitic vol] 94.4 fL Normal 82.6-102.9 [facility] Comment on above: Performed By: #### C DP, PFA, CP, GLYHGB #### [address] [address] Corrosion Control Specialist: Savage Jacob MD NRBC Automated 0.2 per 100 WBC High 0.0 [facility] Comment on above: Performed By: #### C DP, PFA, CP, GLYHGB #### [address] [address] Corrosion Control Specialist: Savage Jacob MD Platelet mean volume (Bld) [Entitic vol] 10.6 fL Normal 8.1-13.5 [facility] Comment on above: Performed By: #### C DP, PFA, CP, GLYHGB #### [address] [address] Corrosion Control Specialist: Savage Jacob MD Platelets (Bld) [#/Vol] 233 10*3/uL Normal 138-453 [facility] Comment on above: Performed By: #### C DP, PFA, CP, GLYHGB #### [address] [address] Corrosion Control Specialist: Savage Jacob MD RBC (Bld) [#/Vol] 2.52 10*6/uL Low 3.95-5.11 [facility] Comment on above: Performed By: #### C DP, PFA, CP, GLYHGB #### [address] [address] Corrosion Control Specialist: Savage Jacob MD WBC (Bld) [#/Vol] 22.0 10*3/uL High 3.5-11.3 [facility] Comment on above: Performed By: #### C DP, PFA, CP, GLYHGB #### [address] [phone] Corrosion Control Specialist: Savage Jacob MD Erythrocyte distribution width (RBC) [Ratio] 15.0 % High 11.8 - 14.4 % [place] Hematocrit (Bld) [Volume fraction] 23.8 % Low 36.3 - 47.1 % [place] Hemoglobin (Bld) [Mass/Vol] 7.3 g/dL Low 11.9 - 15.1 g/dL [place] Interpretation and review of laboratory results Abnormal [place] MCH (RBC) [Entitic mass] 29.0 pg 25.2 - 33.5 pg [place] MCHC (RBC) [Mass/Vol] 30.7 g/dL 28.4 - 34.8 g/dL [place] MCV (RBC) [Entitic vol] 94.4 fL 82.6 - 102.9 fL [place] Platelet mean volume (Bld) [Entitic vol] 10.6 fL 8.1 - 13.5 fL [place] Platelets (Bld) [#/Vol] 233 10*3/uL [place] RBC (Bld) [#/Vol] 2.52 10*6/uL Low 3.95 - 5.1 1 m/uL [place] WBC (Bld) [#/Vol] 22.0 10*3/uL [place] WBC (Bld) [#/Vol] 0.2 10*3/uL High 0.0 per 10 0 WBC [place] Erythrocyte distribution width (RBC) [Ratio] 15.1 % High 11.8-14.4 [facility] Comment on above: Performed By: #### C DP, PFA, CP, GLYHGB #### [facility] [address] [place] [address] Corrosion Control Specialist: Savage Jacob MD Hematocrit (Bld) [Volume fraction] 23.1 % Low 36.3-47.1 [facility] Comment on above: Performed By: #### C DP, PFA, CP, GLYHGB #### [address] [address] Corrosion Control Specialist: Savage Jacob MD Hemoglobin (Bld) [Mass/Vol] 7.2 g/dL Low 11.9-15.1 [facility] Comment on above: Performed By: #### C DP, PFA, CP, GLYHGB #### [address] [address] Corrosion Control Specialist: Savage Jacob MD MCH (RBC) [Entitic mass] 28.5 pg Normal 25.2-33.5 [facility] Comment on above: Performed By: #### C DP, PFA, CP, GLYHGB #### [place] [address] Corrosion Control Specialist: Savage Jacob MD MCHC (RBC) [Mass/Vol] 31.2 g/dL Normal 28.4-34.8 [facility] Comment on above: Performed By: #### C DP, PFA, CP, GLYHGB #### [place] [address] Corrosion Control Specialist: Savage Jacob MD MCV (RBC) [Entitic vol] 91.3 fL Normal 82.6-102.9 [facility] Comment on above: Performed By: #### C DP, PFA, CP, GLYHGB #### [place] [address] Corrosion Control Specialist: Savage Jacob MD NRBC Automated 0.3 per 100 WBC High 0.0 [facility] Comment on above: Performed By: #### C DP, PFA, CP, GLYHGB #### [address] [address] Corrosion Control Specialist: Savage Jacob MD Platelet mean volume (Bld) [Entitic vol] 9.9 fL Normal 8.1-13.5 [facility] Comment on above: Performed By: #### C DP, PFA, CP, GLYHGB #### [facility] [place], [place] [phone] Corrosion Control Specialist: Savage Jacob MD Platelets (Bld) [#/Vol] 224 10*3/uL Normal 138-453 [facility] Comment on above: Performed By: #### C DP, PFA, CP, GLYHGB #### [facility] [employer] [facility] [place], [place] [phone] Corrosion Control Specialist: Savage Jacob MD RBC (Bld) [#/Vol] 2.53 10*6/uL Low 3.95-5.11 [facility] Comment on above: Performed By: #### C DP, PFA, CP, GLYHGB #### [facility] [employer] [address] [place] [phone] Corrosion Control Specialist: Savage Jacob MD WBC (Bld) [#/Vol] 22.4 10*3/uL High 3.5-11.3 [facility] Comment on above: Performed By: #### C DP, PFA, CP, GLYHGB #### [facility] [employer] [address] [place] [phone] Corrosion Control Specialist: Savage Jacob MD Erythrocyte distribution width (RBC) [Ratio] 15.1 % High 11.8 - 14.4 % [place] Hematocrit (Bld) [Volume fraction] 23.1 % Low 36.3 - 47.1 % [place] Hemoglobin (Bld) [Mass/Vol] 7.2 g/dL Low 11.9 - 15.1 g/dL [place] Interpretation and review of laboratory results Abnormal [place] MCH (RBC) [Entitic mass] 28.5 pg 25.2 - 33.5 pg [place] MCHC (RBC) [Mass/Vol] 31.2 g/dL 28.4 - 34.8 g/dL [place] MCV (RBC) [Entitic vol] 91.3 fL 82.6 - 102.9 fL [place] Platelet mean volume (Bld) [Entitic vol] 9.9 fL 8.1 - 13.5 fL [place] Platelets (Bld) [#/Vol] 224 10*3/uL [place] RBC (Bld) [#/Vol] 2.53 10*6/uL Low 3.95 - 5.1 1 m/uL [place] WBC (Bld) [#/Vol] 22.4 10*3/uL [place] WBC (Bld) [#/Vol] 0.3 10*3/uL High 0.0 per 10 0 WBC [place] CORTISOLon 07-15-2019 Cortisol 21.9 ug/dL High 2.7 - 18.4 ug/dL [place] Cortisol Collection Info NOT REPORTED [place] Interpretation and review of laboratory results Abnormal [place] Cortisolon 07-15-2019 Cortisol 21.9 ug/dL High 2.7-18.4 [facility] Comment on above: Result Comment: Cortisol Reference Range: AM 6.0-18.4 PM 2.7-10.5 Performed By: #### C DP, PFA, CP, GLYHGB #### [facility] [address] [place] [phone] Corrosion Control Specialist: Savage Jacob MD Collection Info. NOT REPORTED Normal [facility] Comment on above: Performed By: #### C DP, PFA, CP, GLYHGB #### [facility] [address] [place] [address] [phone] Corrosion Control Specialist: Savage Jacob MD EKG 12 Leadon 07-15-2019 Atrial Rate 83 BPM [place] P [place] 59 degrees [place] P-R Interval 176 ms [place] Q-T Interval 496 ms [place] QRS Duration 92 ms [place] QTc Calculation (Bazett) 582 ms [place] R [place] 45 degrees [place] T [place] 106 degrees [place] Ventricular Rate 83 BPM [facility] [place]- [place], [place] [facility], [facility], [place] Atrial Rate 108 BPM [place] Q-T Interval 334 ms [facility], [place] QRS Duration 92 ms [place] QTc Calculation (Bazett) 447 ms [place] R [place] [address] [facility], [place] T [place] -129 degrees [place] Ventricular Rate 108 BPM [facility] [place]- [place] [facility], [place] Magnesiumon 07-15-2019 Magnesium [Mass/Vol] 2.0 mg/dL Normal 1.6-2.6 [facility] Comment on above: Performed By: #### C DP, PFA, CP, GLYHGB #### [facility] [address] [place] [phone] Corrosion Control Specialist: Savage Jacob MD Magnesium [Mass/Vol] 2.0 mg/dL 1.6 - 2 .6 mg/dL [place] POC Glucose Fingerstickon Interpretation and review of laboratory results Abnormal [place] POC Glucose 193 mg/dL High 65 - 105 mg/dL [place] Interpretation and review of laboratory results Abnormal [place] POC Glucose 234 mg/dL High 65 - 105 mg/dL [place] Interpretation and review of laboratory results Abnormal [place] POC Glucose 155 mg/dL High 65 - 105 mg/dL [place] Interpretation and review of laboratory results Abnormal [place] POC Glucose 308 mg/dL High 65 - 105 mg/dL [place] PTon 07-15-2019 INR Coag (PPP) [Relative time] 1.1 {INR} Normal [facility] Comment on above: Result Comment: Therapeutic Range: Moderate Anticoagulant Intensity: INR = 2.0-3.0 High Anticoagulant Intensity: INR = 2.5-3.5 Performed By: #### C DP, PFA, CP, GLYHGB #### [facility] [address] [place] [address] [phone] Corrosion Control Specialist: Savage Jacob MD PT Coag (PPP) [Time] 11.6 s Normal 9.0-12.0 [facility] Comment on above: Performed By: #### C DP, PFA, CP, GLYHGB #### [facility] [place], [place] [phone] Corrosion Control Specialist: Savage Jacob MD Protime-INRon 07-15-2019 INR Coag (PPP) [Relative time] 1.1 {INR} [place] PT Coag (PPP) [Time] 11.6 s [place], [place] T3, FREEon 07-15-2019 Free T3 [Mass/Vol] 1.27 pg/mL Low 2.02 - 4. 43 pg/mL [place] Interpretation and review of laboratory results Abnormal [place] T3, Freeon 07-15-2019 Free T3 [Mass/Vol] 1.27 pg/mL Low 2.02-4.43 [facility] Comment on above: Performed By: #### C DP, PFA, CP, GLYHGB #### [facility] [address] [place] [address] [phone] Corrosion Control Specialist: Savage Jacob MD T4, FREEon 07-15-2019 Thyroxine, Free 1.02 ng/dL 0.93 - 1.7 ng/dL [place] TSH without Reflexon 020 TSH Qn 4.27 m[IU]/L [place] Thyroid Stim. Horm.on 2019 TSH Qn 4.27 m[IU]/L Normal 0.30-5.00 [facility] Comment on above: Performed By: #### C DP, PFA, CP, GLYHGB #### [facility] [address] [place], [place] [phone] Corrosion Control Specialist: Savage Jacob MD Thyroxine, Freeon 07-15-2019 Thyroxine, Free 1.02 ng/dL Normal 0.93-1.70 [facility] Comment on above: Performed By: #### C DP, PFA, CP, GLYHGB #### [facility] [address] [place] [address] [phone] Corrosion Control Specialist: Savage Jacob MD APTTon 07-14-2019 aPTT Coag (Bld) [Time] 55.5 s High 20.5-30.5 [facility] Comment on above: Performed By: #### C DP, PFA, CP, GLYHGB #### [facility] [address] [place] [address] [phone] Corrosion Control Specialist: Savage Jacob MD aPTT Coag (Bld) [Time] 55.5 s High [place] Interpretation and review of laboratory results Abnormal [place] aPTT Coag (Bld) [Time] 50.9 s High 20.5-30.5 [facility] Comment on above: Performed By: #### C DP, PFA, CP, GLYHGB #### [facility] [address] [place] [address] [phone] Corrosion Control Specialist: Savage Jacob MD aPTT Coag (Bld) [Time] 50.9 s High [place] Interpretation and review of laboratory results Abnormal [place] aPTT Coag (Bld) [Time] 59.0 s High 20.5-30.5 [facility] Comment on above: Performed By: #### C DP, PFA, CP, GLYHGB #### [facility] [address] [place] [address] [phone] Corrosion Control Specialist: Savage Jacob MD aPTT Coag (Bld) [Time] 59.0 s High [place] Interpretation and review of laboratory results Abnormal [place] Arterial Blood Gas, POCon Graham Test NOT APPLICABLE [place] FIO2 40.0 [place] Mode PRVC [place] Negative Base Excess, Art NOT REPORTED [place] O2 Device/Flow/% Adult Ventilator [place] POC HCO3 32.3 mmol/L High 21 - 28 mmol/L [place] POC O2 SAT 94 % 94 - 98 % [place] POC pCO2 44.2 [place] POC pCO2 Temp NOT REPORTED mm [place] P[place] pH 7.472 High [place] POC pH Temp NOT REPORTED [place], [place] POC PO2 66.5 Low [place] POC pO2 Temp NOT REPORTED mm Hg [place] Positive Base Excess, Art 8 High [place] Pt Temp NOT REPORTED [place] Sample Site Arterial Line [place] TCO2 (calc), Art 34 mmol/L High 22 - 29 mmol/L [place] Graham Test NOT APPLICABLE [place] FIO2 40.0 [place] Interpretation and review of laboratory results Abnormal [place] Mode PRVC [place] Negative Base Excess, Art NOT REPORTED [place] O2 Device/Flow/% Adult Ventilator [place] POC HCO3 33.5 mmol/L High 21 - 28 mmol/L [place] POC O2 SAT 94 % 94 - 98 % [place] POC pCO2 48.2 High [place] POC pCO2 Temp NOT REPORTED mm [place] pH 7.450 [place] POC pH Temp NOT REPORTED [place] POC PO2 70.8 Low [place] POC pO2 Temp NOT REPORTED mm Hg [place] Positive Base Excess, Art 8 High [place] Pt Temp NOT REPORTED [place] Sample Site Arterial Line [place] TCO2 (calc), Art 35 mmol/L High 22 - 29 mmol/L [place] Basic Metabolic Panelon - Anion gap [Moles/Vol] 14 mmol/L 9 - 17 mmol/L [place] Bun/Cre Ratio NOT REPORTED [facility] [place] Calcium [Mass/Vol] 8.1 mg/dL Low 8.6 - 10. 4 mg/dL [place] Chloride [Moles/Vol] 103 mmol/L 98 - 10 7 mmol/L [place] CO2 [Moles/Vol] 27 mmol/L 20 - 31 mmol/L [place] Creatinine [Mass/Vol] 1.16 mg/dL High 0.5 - 0.9 mg/dL [place] GFR 56 mL/min Low >60 [place], [place] GFR Comment [place] GFR Non- 46 mL/min Low >60 [place] GFR Staging NOT REPORTED [place], [place] Glucose [Mass/Vol] 239 mg/dL High 70 - 99 mg/dL [place], [place] Interpretation and review of laboratory results Abnormal [place] Potassium [Moles/Vol] 3.5 mmol/L Low 3.7 - 5.3 mmol/L [place] Sodium [Moles/Vol] 144 mmol/L 135 - 144 mmol/L [place] Urea nitrogen [Mass/Vol] 22 mg/dL 8 - 23 mg/dL [place] Basic Metabolic Profon 07-14 (cont.) Normal [facility] Comment on above: Result Comment: Aver age GFR for 70 or more years old: 75 mL/min/1.73sq m Chronic Kidney Disease: <60 mL/min/1.73sq m Kidney failure: <15 mL/min/1.73sq m eGFR calculated using average adult body mass. Additional eGFR calculator available at: [email or web address] [email or web address]_[email or web address] Performed By: #### C DP, PFA, CP, GLYHGB #### [facility] [employer] [facility] [place] [address] Corrosion Control Specialist: Savage Jacob MD Anion gap [Moles/Vol] 14 mmol/L Normal 9-17 [facility] Comment on above: Performed By: #### C DP, PFA, CP, GLYHGB #### [facility] [employer] [address] [place] [phone] Corrosion Control Specialist: Savage Jacob MD Calcium [Mass/Vol] 8.1 mg/dL Low 8.6-10.4 [facility] Comment on above: Performed By: #### C DP, PFA, CP, GLYHGB #### [facility] [employer] [address] [place] [phone] Corrosion Control Specialist: Savage Jacob MD Chloride [Moles/Vol] 103 mmol/L Normal 98-107 [facility] Comment on above: Performed By: #### C DP, PFA, CP, GLYHGB #### [facility] [employer] [address] [place] [phone] Corrosion Control Specialist: Savage Jacob MD CO2 [Moles/Vol] 27 mmol/L Normal 20-31 [facility] Comment on above: Performed By: #### C DP, PFA, CP, GLYHGB #### [facility] [employer] [address] [place] [phone] Corrosion Control Specialist: Savage Jacob MD Creatinine [Mass/Vol] 1.16 mg/dL High 0.50-0.90 [facility] Comment on above: Performed By: #### C DP, PFA, CP, GLYHGB #### [facility] [employer] [address] [place] [phone] Corrosion Control Specialist: Savage Jacob MD GFR, Amer 56 mL/min Low >60 [facility] Comment on above: Performed By: #### C DP, PFA, CP, GLYHGB #### [facility] [employer] [address] [place] [phone] Corrosion Control Specialist: Savage Jacob MD GFR,non Amer 46 mL/min Low >60 [facility] Comment on above: Performed By: #### C DP, PFA, CP, GLYHGB #### [facility] [address] [place] [phone] Corros[employer] Control Specialist: Savage Jacob MD Glucose [Mass/Vol] 239 mg/dL High 70-99 [facility] Comment on above: Performed By: #### C DP, PFA, CP, GLYHGB #### [facility] [address] [place] [phone] Corrosion Control Specialist: Savage Jacob MD Potassium [Moles/Vol] 3.5 mmol/L Low 3.7-5.3 [facility] Comment on above: Performed By: #### C DP, PFA, CP, GLYHGB #### [facility] [employer] [address] [place] [phone] Corrosion Control Specialist: Savage Jacob MD Sodium [Moles/Vol] 144 mmol/L Normal 135-144 [facility] Comment on above: Performed By: #### C DP, PFA, CP, GLYHGB #### [facility] [employer] [address] [place] [phone] Corrosion Control Specialist: Savage Jacob MD Urea nitrogen [Mass/Vol] 22 mg/dL Normal 8-23 [facility] Comment on above: Performed By: #### C DP, PFA, CP, GLYHGB #### [address] [address] Corrosion Control Specialist: Savage Jacob MD BUN/CRE Ratio NOT REPORTED Normal 9-20 [facility] Comment on above: Performed By: #### C DP, PFA, CP, GLYHGB #### [facility] [employer] [address] [place] [phone] Corrosion Control Specialist: Savage Jacob MD Staging: NOT REPORTED Normal [facility] Comment on above: Performed By: #### C DP, PFA, CP, GLYHGB #### [facility] [employer] [address] [place] [phone] Corrosion Control Specialist: Savage Jacob MD CBCon 07-14-2019 Erythrocyte distribution width (RBC) [Ratio] 15.2 % High 11.8-14.4 [facility] Comment on above: Performed By: #### C DP, PFA, CP, GLYHGB #### [address] [address] Corros[employer] Specialist: Savage Jacob MD Hematocrit (Bld) [Volume fraction] 28.9 % Low 36.3-47.1 [facility] Comment on above: Performed By: #### C DP, PFA, CP, GLYHGB #### [place] [address] Corros[employer] Control Specialist: Savage Jacob MD Hemoglobin (Bld) [Mass/Vol] 9.0 g/dL Low 11.9-15.1 [facility] Comment on above: Performed By: #### C DP, PFA, CP, GLYHGB #### [address] [address] Corrosion Control Specialist: Savage Jacob MD MCH (RBC) [Entitic mass] 28.7 pg Normal 25.2-33.5 [facility] Comment on above: Performed By: #### C DP, PFA, CP, GLYHGB #### [address] [address] Corrosion Control Specialist: Savage Jacob MD MCHC (RBC) [Mass/Vol] 31.1 g/dL Normal 28.4-34.8 [facility] Comment on above: Performed By: #### C DP, PFA, CP, GLYHGB #### [address] [address] Corrosion Control Specialist: Savage Jacob MD MCV (RBC) [Entitic vol] 92.0 fL Normal 82.6-102.9 [facility] Comment on above: Performed By: #### C DP, PFA, CP, GLYHGB #### [address] [address] Corrosion Control Specialist: Savage Jacob MD NRBC Automated 0.3 per 100 WBC High 0.0 [facility] Comment on above: Performed By: #### C DP, PFA, CP, GLYHGB #### [address] [address] Corrosion Control Specialist: Savage Jacob MD Platelet mean volume (Bld) [Entitic vol] 9.4 fL Normal 8.1-13.5 [facility] Comment on above: Performed By: #### C DP, PFA, CP, GLYHGB #### [address] [address] Corrosion Control Specialist: Savage Jacob MD Platelets (Bld) [#/Vol] 219 10*3/uL Normal 138-453 [facility] Comment on above: Performed By: #### C DP, PFA, CP, GLYHGB #### [address] [address] Corrosion Control Specialist: Savage Jacob MD RBC (Bld) [#/Vol] 3.14 10*6/uL Low 3.95-5.11 [facility] Comment on above: Performed By: #### C DP, PFA, CP, GLYHGB #### [address] [address] Corrosion Control Specialist: Savage Jacob MD WBC (Bld) [#/Vol] 18.9 10*3/uL High 3.5-11.3 [facility] Comment on above: Performed By: #### C DP, PFA, CP, GLYHGB #### [address] [address] Corrosion Control Specialist: Savage Jacob MD Erythrocyte distribution width (RBC) [Ratio] 15.2 % High 11.8 - 14.4 % [place] Hematocrit (Bld) [Volume fraction] 28.9 % Low 36.3 - 47.1 % [place] Hemoglobin (Bld) [Mass/Vol] 9.0 g/dL Low 11.9 - 15.1 g/dL [place] Interpretation and review of laboratory results Abnormal [place] MCH (RBC) [Entitic mass] 28.7 pg 25.2 - 33.5 pg [place] MCHC (RBC) [Mass/Vol] 31.1 g/dL 28.4 - 34.8 g/dL [place] MCV (RBC) [Entitic vol] 92.0 fL 82.6 - 102.9 fL [place] Platelet mean volume (Bld) [Entitic vol] 9.4 fL 8.1 - 13.5 fL [place] Platelets (Bld) [#/Vol] 219 10*3/uL [place] RBC (Bld) [#/Vol] 3.14 10*6/uL Low 3.95 - 5.1 1 m/uL [place] WBC (Bld) [#/Vol] 0.3 10*3/uL High 0.0 per 10 0 WBC [place] WBC (Bld) [#/Vol] 18.9 10*3/uL [place] K (Potassium)on 07-14-2019 Potassium [Moles/Vol] 3.2 mmol/L Low 3.7-5.3 [facility] Comment on above: Performed By: #### C DP, PFA, CP, GLYHGB #### [facility] [employer] [address] [place] [address] [phone] Corrosion Control Specialist: Savage Jacob MD Magnesiumon 07-14-2019 Magnesium [Mass/Vol] 2.0 mg/dL Normal 1.6-2.6 [facility] Comment on above: Performed By: #### C DP, PFA, CP, GLYHGB #### [facility] [employer] [address] [place] [address] [phone] Corrosion Control Specialist: Savage Jacob MD Magnesium [Mass/Vol] 2.0 mg/dL 1.6 - 2 .6 mg/dL [place] Otheron 07-14-2019 Interpretation and review of laboratory results Abnormal [place] POC Glucose Fingerstickon Interpretation and review of laboratory results Abnormal [place] POC Glucose 225 mg/dL High 65 - 105 mg/dL [place] Interpretation and review of laboratory results Abnormal [place] POC Glucose 293 mg/dL High 65 - 105 mg/dL [place] Interpretation and review of laboratory results Abnormal [place] POC Glucose 286 mg/dL High 65 - 105 mg/dL [place] Interpretation and review of laboratory results Abnormal [place] POC Glucose 245 mg/dL High 65 - 105 mg/dL [place] POCT Glucoseon 07-14-2019 POC Glucose 354 mg/dL High 74 - 100 mg/dL [place] POTASSIUMon 07-14-2019 Interpretation and review of laboratory results Abnormal [place] Potassium [Moles/Vol] 3.2 mmol/L Low 3.7 - 5.3 mmol/L [place] PTon 07-14-2019 INR Coag (PPP) [Relative time] 1.1 {INR} Normal [facility] Comment on above: Result Comment: Therapeutic Range: Moderate Anticoagulant Intensity: INR = 2.0-3.0 High Anticoagulant Intensity: INR = 2.5-3.5 Performed By: #### C DP, PFA, CP, GLYHGB #### [employer] [address] [place] [address] [phone] Corrosion Control Specialist: Savage Jacob MD PT Coag (PPP) [Time] 11.1 s Normal 9.0-12.0 [facility] Comment on above: Performed By: #### C DP, PFA, CP, GLYHGB #### [facility] [employer] [address] [place] [address] [phone] Corrosion Control Specialist: Savage Jacob MD Protime-INRon 07-14-2019 INR Coag (PPP) [Relative time] 1.1 {INR} [place] PT Coag (PPP) [Time] 11.1 s [place] XR CHEST PORTABLEon 07-14-19 20 XR CHEST PORTABLE EXAMINATION: ONE XRAY VIEW OF THE CHEST 07/14/2019 5:52 am COMPARISON: 07/13/2019 HISTORY: Reason for Exam: post CABG upright port FINDINGS: Endotracheal tube is in place with tip approximately 6 cm above the janes. Feeding tube remains in place. Cardiomediastinal silhouette is stable. Interval increased interstitial prominence/vascular congestion with persistent left perihilar opacity. Probable trace effusions. No discernible pneumothorax. Osseous structures grossly stable with degenerative change of the mid to lower thoracic spine. IMPRESSION: *Endotracheal tube tip approximately 6 cm of the janes. *Interval increased interstitial prominence/vascular congestion with persistent left perihilar opacity and probable trace effusions. Interpreted by: Kaylen Ying MD Signed by: Kaylen Ying MD 07/14/19 Final result Normal [place] APTTon 07-13-2019 aPTT Coag (Bld) [Time] 39.9 s High 20.5-30.5 [facility] Comment on above: Performed By: #### C DP, PFA, CP, GLYHGB #### [facility] [employer] [address] [place] [phone] Corrosion Control Specialist: Savage Jacob MD aPTT Coag (Bld) [Time] 39.9 s High [place], [place] Interpretation and review of laboratory results Abnormal [place] aPTT Coag (Bld) [Time] 56.3 s High 20.5-30.5 [facility] Comment on above: Result Comment: ADDE D ON Performed By: #### C DP, PFA, CP, GLYHGB #### [facility] [employer] [address] [place] [phone] Corrosion Control Specialist: Savage Jacob MD aPTT Coag (Bld) [Time] 56.3 s [place] Interpretation and review of laboratory results Abnormal [place] Anion Gap (Calc) POCon 07-13 Anion gap [Moles/Vol] 10 mmol/L 7 - 16 mmol/L [place] Anion gap [Moles/Vol] 10 mmol/L 7 - 16 mmol/L [place] Anti-Thy Peroxidaseon 2019 Anti-Thy Peroxidase 35.7 IU/mL High 0.0-35.0 [facility] Comment on above: Performed By: #### C DP, PFA, CP, GLYHGB #### [facility] [employer] [facility] [place] [phone] Corrosion Control Specialist: Savage Jacob MD Arterial Blood Gas, POCon Graham Test Positive [place] FIO2 40.0 [place] Interpretation and review of laboratory results Abnormal [place] Mode [place] Negative Base Excess, Art NOT REPORTED [place] O2 Device/Flow/% Adult Ventilator [place] POC HCO3 32.8 mmol/L High 21 - 28 mmol/L [place] POC O2 SAT 98 % 94 - 98 % [place] POC pCO2 50.1 High [place] POC pCO2 Temp NOT REPORTED mm [place] POC pH 7.423 [place] POC pH Temp NOT REPORTED [place] POC PO2 98.2 [place] POC pO2 Temp NOT REPORTED mm Hg [place] Positive Base Excess, Art 8 High [place] Pt Temp NOT REPORTED [place] Sample Site Arterial Line [place] TCO2 (calc), Art 34 mmol/L High 22 - 29 mmol/L [place] Graham Test NOT APPLICABLE [place] FIO2 40.0 [place] Mode [place] Negative Base Excess, Art NOT REPORTED [place] O2 Device/Flow/% Adult Ventilator [place] POC HCO3 32.0 mmol/L High 21 - 28 mmol/L [place] POC O2 SAT 97 % 94 - 98 % [place] POC pCO2 50.0 High [place] POC pCO2 Temp NOT REPORTED mm [place] POC pH 7.414 [place] POC pH Temp NOT REPORTED [place] POC PO2 92.9 [place] POC pO2 Temp NOT REPORTED mm Hg [place] Positive Base Excess, Art 7 High [place] Pt Temp NOT REPORTED [place] Sample Site Arterial Line [place] TCO2 (calc), Art 34 mmol/L High 22 - 29 mmol/L [place] Graham Test NOT APPLICABLE [place] FIO2 40.0 [place] Mode PRVC/PS [place] Negative Base Excess, Art NOT REPORTED [place] O2 Device/Flow/% Adult Ventilator [place] POC HCO3 32.0 mmol/L High 21 - 28 mmol/L [place] POC O2 SAT 99 % High 94 - 98 % [place] POC pCO2 52.7 High [place] POC pCO2 Temp NOT REPORTED mm [place] POC pH 7.391 [place] POC pH Temp NOT REPORTED [place] POC PO2 125.0 [place] POC pO2 Temp NOT REPORTED mm Hg [place] Positive Base Excess, Art 6 High [place] Pt Temp NOT REPORTED [place] Sample Site Arterial Line [place] TCO2 (calc), Art 34 mmol/L High 22 - 29 mmol/L [place] BASIC METABOLIC PANELon 02- Bun/Cre Ratio NOT REPORTED [place] CO2 [Moles/Vol] 30 mmol/L 20 - 31 mmol/L [place] GFR 53 mL/min Low >60 [place] GFR Comment [place] GFR Non- 44 mL/min Low >60 [place] GFR Staging NOT REPORTED [place] Interpretation and review of laboratory results Abnormal [place] Basic Metabolic Panelon 06-24 Anion gap [Moles/Vol] 14 mmol/L 9 - 17 mmol/L [place] Bun/Cre Ratio NOT REPORTED [place] Calcium [Mass/Vol] 8.8 mg/dL 8.6 - 10. 4 mg/dL [place] Chloride [Moles/Vol] 101 mmol/L 98 - 10 7 mmol/L [place] Creatinine [Mass/Vol] 1.36 mg/dL High 0.5 - 0.9 mg/dL [place] GFR 47 mL/min Low >60 [place] GFR Comment [place] GFR Non- 38 mL/min Low >60 [place] GFR Staging NOT REPORTED [place] Glucose [Mass/Vol] 156 mg/dL High 70 - 99 mg/dL [place], [place] Interpretation and review of laboratory results Abnormal [place] Potassium [Moles/Vol] 3.1 mmol/L Low 3.7 - 5.3 mmol/L [place] Sodium [Moles/Vol] 145 mmol/L High 135 - 144 mmol/L [place] Urea nitrogen [Mass/Vol] 26 mg/dL High 8 - 23 mg/dL [place] Basic Metabolic Profon 07-13 GFR, Amer 53 mL/min Low >60 [facility] Comment on above: Performed By: #### C DP, PFA, CP, GLYHGB #### [facility] [place] [address] Corrosion Control Specialist: Savage Jacob MD GFR,non Amer 44 mL/min Low >60 [facility] Comment on above: Performed By: #### C DP, PFA, CP, GLYHGB #### [facility] [employer] [address] [place] [phone] Corrosion Control Specialist: Savage Jacob MD BUN/CRE Ratio NOT REPORTED Normal 9-20 [facility] Comment on above: Performed By: #### C DP, PFA, CP, GLYHGB #### [facility] [employer] [address] [place] [phone] Corrosion Control Specialist: Savage Jacob MD Staging: NOT REPORTED Normal [facility] Comment on above: Performed By: #### C DP, PFA, CP, GLYHGB #### [facility] [employer] [address] [place] [phone] Corrosion Control Specialist: Savage Jacob MD Anion gap [Moles/Vol] 13 mmol/L Normal 9-17 [place] Comment on above: Performed By: #### C DP, PFA, CP, GLYHGB #### [facility] [employer] [address] [place] [phone] Corrosion Control Specialist: Savage Jacob MD Calcium [Mass/Vol] 8.6 mg/dL Normal 8.6-10.4 [place] Comment on above: Performed By: #### C DP, PFA, CP, GLYHGB #### [facility] [employer] [address] [place] [phone] Corrosion Control Specialist: Savage Jacob MD Chloride [Moles/Vol] 104 mmol/L Normal 98-107 [place] Comment on above: Performed By: #### C DP, PFA, CP, GLYHGB #### [facility] [employer] [address] [place] [phone] Corrosion Control Specialist: Savage Jacob MD Creatinine [Mass/Vol] 1.21 mg/dL High 0.50-0.90 [place] Comment on above: Performed By: #### C DP, PFA, CP, GLYHGB #### [facility] [employer] [facility] [place] [address] Corrosion Control Specialist: Savage Jacob MD Glucose [Mass/Vol] 120 mg/dL High 70-99 [place] Comment on above: Performed By: #### C DP, PFA, CP, GLYHGB #### [facility] [employer] [address] [place] [phone] Corrosion Control Specialist: Savage Jacob MD Potassium [Moles/Vol] 3.2 mmol/L Low 3.7-5.3 [place] Comment on above: Performed By: #### C DP, PFA, CP, GLYHGB #### [address] [address] Corrosion Control Specialist: Savage Jacob MD Sodium [Moles/Vol] 147 mmol/L High 135-144 [place] Comment on above: Performed By: #### C DP, PFA, CP, GLYHGB #### [facility] [employer] [address] [place] [phone] Corrosion Control Specialist: Savage Jacob MD Urea nitrogen [Mass/Vol] 24 mg/dL High 8-23 [place] Comment on above: Performed By: #### C DP, PFA, CP, GLYHGB #### [address] [address] Corrosion Control Specialist: Savage Jacob MD (cont.) [facility] Comment on above: Result Comment: Aver age GFR for 70 or more years old: 75 mL/min/1.73sq m Chronic Kidney Disease: <60 mL/min/1.73sq m Kidney failure: <15 mL/min/1.73sq m eGFR calculated using average adult body mass. Additional eGFR calculator available at: [email or web address] Performed By: #### C DP, PFA, CP, GLYHGB #### [facility] [employer] [address] [place] [phone] Corrosion Control Specialist: Savage Jacob MD Anion gap [Moles/Vol] 14 mmol/L Normal 9-17 [facility] Comment on above: Performed By: #### C DP, PFA, CP, GLYHGB #### [facility] [employer] [address] [place] [phone] Corrosion Control Specialist: Savage Jacob MD Calcium [Mass/Vol] 8.8 mg/dL Normal 8.6-10.4 [facility] Comment on above: Performed By: #### C DP, PFA, CP, GLYHGB #### [address] [address] Corrosion Control Specialist: Savage Jacob MD Chloride [Moles/Vol] 101 mmol/L Normal 98-107 [facility] Comment on above: Performed By: #### C DP, PFA, CP, GLYHGB #### [facility] [employer] [address] [place] [phone] Corrosion Control Specialist: Savage Jacob MD CO2 [Moles/Vol] 30 mmol/L Normal 20-31 [facility] Comment on above: Performed By: #### C DP, PFA, CP, GLYHGB #### [facility] [employer] [address] [place] [phone] Corrosion Control Specialist: Savage Jacob MD Creatinine [Mass/Vol] 1.36 mg/dL High 0.50-0.90 [facility] Comment on above: Performed By: #### C DP, PFA, CP, GLYHGB #### [facility] [employer] [address] [place] [phone] Corrosion Control Specialist: Savage Jacob MD GFR, Amer 47 mL/min Low >60 [facility] Comment on above: Performed By: #### C DP, PFA, CP, GLYHGB #### [facility] [employer] [address] [place] [phone] Corrosion Control Specialist: Savage Jacob MD GFR,non Amer 38 mL/min Low >60 [facility] Comment on above: Performed By: #### C DP, PFA, CP, GLYHGB #### [address] [address] Corrosion Control Specialist: Savage Jacob MD Glucose [Mass/Vol] 156 mg/dL High 70-99 [facility] Comment on above: Performed By: #### C DP, PFA, CP, GLYHGB #### [address] [address] Corrosion Control Specialist: Savage Jacob MD Potassium [Moles/Vol] 3.1 mmol/L Low 3.7-5.3 [facility] Comment on above: Performed By: #### C DP, PFA, CP, GLYHGB #### [address] [address] Corrosion Control Specialist: Savage Jacob MD Sodium [Moles/Vol] 145 mmol/L High 135-144 [facility] Comment on above: Performed By: #### C DP, PFA, CP, GLYHGB #### [address] [address] Corrosion Control Specialist: Savage Jacob MD Urea nitrogen [Mass/Vol] 26 mg/dL High 8- [facility] Comment on above: Performed By: #### C DP, PFA, CP, GLYHGB #### [address] [address] Corrosion Control Specialist: Savage Jacob MD BUN/CRE Ratio NOT REPORTED Normal - [facility] Comment on above: Performed By: #### C DP, PFA, CP, GLYHGB #### [address] [address] Corrosion Control Specialist: Savage Jacob MD Staging: NOT REPORTED Normal [facility] Comment on above: Performed By: #### C DP, PFA, CP, GLYHGB #### [facility] [employer] [address] [place] [phone] Corrosion Control Specialist: Savage Jacob MD CO2 [Moles/Vol] 30 mmol/L Normal 20-31 [place] Comment on above: Performed By: #### C DP, PFA, CP, GLYHGB #### [facility] [employer] [address] [place] [phone] Corrosion Control Specialist: Savage Jacob MD CALCIUM, IONIC (POC)on 07-13 POC Ionized Calcium 1.14 mmol/L Low 1.15 - 1 .33 mmol/L [place] POC Ionized Calcium 1.16 mmol/L 1.15 - 1 .33 mmol/L [place] CBCon 07-13-2019 Erythrocyte distribution width (RBC) [Ratio] 15.5 % High 11.8-14.4 [facility] Comment on above: Performed By: #### C DP, PFA, CP, GLYHGB #### [address] [address] Corrosion Control Specialist: Savage Jacob MD Hematocrit (Bld) [Volume fraction] 25.0 % Low 36.3-47.1 [facility] Comment on above: Performed By: #### C DP, PFA, CP, GLYHGB #### [facility] [employer] [address] [place] [phone] Corrosion Control Specialist: Savage Jacob MD Hemoglobin (Bld) [Mass/Vol] 7.7 g/dL Low 11.9-15.1 [facility] Comment on above: Performed By: #### C DP, PFA, CP, GLYHGB #### [facility] [employer] [address] [place] [phone] Corrosion Control Specialist: Savage Jacob MD MCH (RBC) [Entitic mass] 28.4 pg Normal 25.2-33.5 [facility] Comment on above: Performed By: #### C DP, PFA, CP, GLYHGB #### [address] [address] Corrosion Control Specialist: Savage Jacob MD MCHC (RBC) [Mass/Vol] 30.8 g/dL Normal 28.4-34.8 [facility] Comment on above: Performed By: #### C DP, PFA, CP, GLYHGB #### [address] [address] Corrosion Control Specialist: Savage Jacob MD MCV (RBC) [Entitic vol] 92.3 fL Normal 82.6-102.9 [facility] Comment on above: Performed By: #### C DP, PFA, CP, GLYHGB #### [address] [address] Corrosion Control Specialist: Savage Jacob MD NRBC Automated 0.5 per 100 WBC High 0.0 [facility] Comment on above: Performed By: #### C DP, PFA, CP, GLYHGB #### [address] [address] Corrosion Control Specialist: Savage Jacob MD Platelet mean volume (Bld) [Entitic vol] 9.4 fL Normal 8.1-13.5 [facility] Comment on above: Performed By: #### C DP, PFA, CP, GLYHGB #### [address] [address] Corrosion Control Specialist: Savage Jacob MD Platelets (Bld) [#/Vol] 278 10*3/uL Normal 138-453 [facility] Comment on above: Performed By: #### C DP, PFA, CP, GLYHGB #### [address] [address] Corrosion Control Specialist: Savage Jacob MD RBC (Bld) [#/Vol] 2.71 10*6/uL Low 3.95-5.11 [facility] Comment on above: Performed By: #### C DP, PFA, CP, GLYHGB #### [facility] [employer] [address] [place], [place] [phone] Corrosion Control Specialist: Savage Jacob MD WBC (Bld) [#/Vol] 13.9 10*3/uL High 3.5-11.3 [facility] Comment on above: Performed By: #### C DP, PFA, CP, GLYHGB #### [facility] [employer] [address] [place], [place] [phone] Corrosion Control Specialist: Savage Jacob MD Erythrocyte distribution width (RBC) [Ratio] 15.5 % High 11.8 - 14.4 % [place] Hematocrit (Bld) [Volume fraction] 25.0 % Low 36.3 - 47.1 % [place] Hemoglobin (Bld) [Mass/Vol] 7.7 g/dL Low 11.9 - 15.1 g/dL [place] Interpretation and review of laboratory results Abnormal [place] MCH (RBC) [Entitic mass] 28.4 pg 25.2 - 33.5 pg [place] MCHC (RBC) [Mass/Vol] 30.8 g/dL 28.4 - 34.8 g/dL [place] MCV (RBC) [Entitic vol] 92.3 fL 82.6 - 102.9 fL [place] Platelet mean volume (Bld) [Entitic vol] 9.4 fL 8.1 - 13.5 fL [place] Platelets (Bld) [#/Vol] 278 10*3/uL [place] RBC (Bld) [#/Vol] 2.71 10*6/uL Low 3.95 - 5.1 1 m/uL [place] WBC (Bld) [#/Vol] 0.5 10*3/uL High 0.0 per 10 0 WBC [place] WBC (Bld) [#/Vol] 13.9 10*3/uL [place] CHLORIDE (POC)on 07-13-2019 POC Chloride 103 mmol/L 98 - 107 mmol/L [place] POC Chloride 103 mmol/L 98 - 107 mmol/L [place] Creatinine W/GFR Point of Ca reon 07-13-2019 GFR Comment 46 mL/min Low >60 [place] GFR Comment [place] GFR Non- 38 mL/min Low >60 [place] POC Creatinine 1.38 mg/dL High 0.51 - 1.19 mg/dL [place] GFR Comment 46 mL/min Low >60 [place] GFR Comment [place] GFR Non- 38 mL/min Low >60 [place] POC Creatinine 1.38 mg/dL High 0.51 - 1.19 mg/dL [place] Cult,Respiratoryon 0 Cult,Respiratory Specimen Description .TRACHEAL ASPIRATE Special Requests NOT REPORTED Direct Exam >25 NEUTROPHILS/LPF < 10 EPITHELIAL CELLS/LPF NO SIGNIFICANT PATHOGENS SEEN Culture NORMAL RESPIRATORY ROSEANNA LIGHT GROWTH Report Status FINAL 07/13/2019 Normal [facility] Comment on above: Performed By: #### C DP, PFA, CP, GLYHGB #### [facility] [address] [place], [place] [phone] Corrosion Control Specialist: Savage Jacob MD Culture, Respiratoryon 07-13 Culture NORMAL RESPIRATORY ROSEANNA LIGHT GROWTH [place] Direct Exam < 10 EPITHELIAL CELLS/LPF [place] Direct Exam NO SIGNIFICANT PATHOGENS SEEN [place] Direct Exam >25 NEUTROPHILS/LPF [place], [place] Special Requests NOT REPORTED [place] Specimen Description .TRACHEAL ASPIRATE [place] Hemoglobin and hematocrit, b loodon 07-13-2019 POC Hematocrit 22 % Low 36 - 46 % [place] POC Hemoglobin 7.6 g/dL Low 12 - 16 g/dL [place], [place] POC Hematocrit 22 % Low 36 - 46 % [place] POC Hemoglobin 7.6 g/dL Low 12 - 16 g/dL [place], [place] Lactic Acid, POCon 0 POC Lactic Acid 0.40 mmol/L Low 0.56 - 1.39 mmol/L [place] POC Lactic Acid 0.55 mmol/L Low 0.56 - 1.39 mmol/L [place] Magnesiumon 07-13-2019 Magnesium [Mass/Vol] 2.0 mg/dL Normal 1.6-2.6 [facility] Comment on above: Performed By: #### C DP, PFA, CP, GLYHGB #### [facility] [address] [place] [address] Corrosion Control Specialist: Savage Jacob MD Magnesium [Mass/Vol] 2.0 mg/dL 1.6 - 2 .6 mg/dL [place] Otheron 07-13-2019 [place] Interpretation and review of laboratory results Abnormal [place] Interpretation and review of laboratory results Abnormal [place] POC Glucose Fingerstickon Interpretation and review of laboratory results Abnormal [place] POC Glucose 163 mg/dL High 65 - 105 mg/dL [place] Interpretation and review of laboratory results Abnormal [place] POC Glucose 125 mg/dL High 65 - 105 mg/dL [place] Interpretation and review of laboratory results Abnormal [place] POC Glucose 182 mg/dL High 65 - 105 mg/dL [place] Interpretation and review of laboratory results Abnormal [place] POC Glucose 151 mg/dL High 65 - 105 mg/dL [place] POCT Glucoseon 07-13-2019 POC Glucose 156 mg/dL High 74 - 100 mg/dL [place] POC Glucose 153 mg/dL High 74 - 100 mg/dL [place] POTASSIUM (POC)on 07-13-2019 POC Potassium 3.0 mmol/L Low 3.5 - 4.5 mmol/L [place] POC Potassium 3.0 mmol/L Low 3.5 - 4.5 mmol/L [place] PTon 07-13-2019 INR Coag (PPP) [Relative time] 1.1 {INR} Normal [facility] Comment on above: Result Comment: Therapeutic Range: Moderate Anticoagulant Intensity: INR = 2.0-3.0 High Anticoagulant Intensity: INR = 2.5-3.5 Performed By: #### C DP, PFA, CP, GLYHGB #### [facility] [address] [place] [phone] Corrosion Control Specialist: Savgae Jacob MD PT Coag (PPP) [Time] 11.5 s Normal 9.0-12.0 [facility] Comment on above: Performed By: #### C DP, PFA, CP, GLYHGB #### [facility] [employer] [address] [place] [phone] Corrosion Control Specialist: Savage Jacob MD Phosphoruson 07-13-2019 Phosphate [Mass/Vol] 4.4 mg/dL 2.6 - 4 .5 mg/dL [place] Phosphorus, Inorg.on 020 Phosphorus, Inorg. 4.4 mg/dL Normal 2.6-4.5 [facility] Comment on above: Performed By: #### C DP, PFA, CP, GLYHGB #### [facility] [employer] [address] [place] [phone] Corrosion Control Specialist: Savage Jacob MD Protime-INRon 07-13-2019 INR Coag (PPP) [Relative time] 1.1 {INR} [place] PT Coag (PPP) [Time] 11.5 s [place] SODIUM (POC)on 07-13-2019 POC Sodium 145 mmol/L 138 - 146 mmol/L [place] POC Sodium 145 mmol/L 138 - 146 mmol/L [place] T3, Freeon 07-13-2019 Free T3 [Mass/Vol] 1.76 pg/mL Low 2.02-4.43 [facility] Comment on above: Performed By: #### C DP, PFA, CP, GLYHGB #### [facility] [address] [place] [phone] Corrosion Control Specialist: Savage Jacob MD Free T3 [Mass/Vol] 1.76 pg/mL Low 2.02 - 4. 43 pg/mL [place] Interpretation and review of laboratory results Abnormal [place] THYROID PEROXIDASE ANTIBODYo n 07-13-2019 Interpretation and review of laboratory results Abnormal [place] Thyroid Peroxidase (Tpo) Ab 35.7 High [place] Thyroglobulin + ATAon 2019 Thyroglobulin 10.7 ng/mL Normal 0.0-63.4 [facility] Comment on above: Result Comment: Thyr oglobulin (Tg) is measured by the Siemens Immulite 2000 method, which has a lower limit of quantification of 0.2 ng/mL. Tg results less than 0.2 ng/mL are consistent with the absence of thyroglobulin-producing thyroid tissue. Results obtained with any different assay methods or kits cannot be used interchangeably. Performed By: #### C DP, PFA, CP, GLYHGB #### [facility] [address] [place] [phone] Corrosion Control Specialist: Savage Jacob MD Thyroglobulin Ab Qn [IU]/mL Normal 0.0-40.0 [facility] Comment on above: Performed By: #### C DP, PFA, CP, GLYHGB #### [facility] [address] [place] [phone] Corrosion Control Specialist: Savage Jacob MD Thyroglobulin and anti-Thyro globulin ABon 07-13-2019 Thyroglobulin 10.7 ng/mL 0 - 63.4 ng/mL [place] Thyroglobulin Ab Qn [IU]/mL [place] XR CHEST PORTABLEon 07-13-19 XR CHEST PORTABLE EXAMINATION: ONE XRAY VIEW OF THE CHEST 07/13/2019 5:43 am COMPARISON: July 12, 2019. HISTORY: ORDERING SYSTEM PROVIDED HISTORY: POST CABG TECHNOLOGIST PROVIDED HISTORY: POST CABG Reason for Exam: post cabg Acuity: Unknown Type of Exam: Unknown FINDINGS: Interval extubation. Feeding tube appears in unchanged position, with tip not visualized. Right subclavian central venous catheter appears in unchanged position. Right IJ central venous catheter sheath appears in unchanged position. Cardiac and mediastinal contours are enlarged but unchanged. Interval slight improvement in pulmonary interstitial edema. More focal pulmonary opacity within the left perihilar region appears reasonably similar to previous examination. Probable trace bilateral pleural effusion. No evidence of pneumothorax. No new osseous abnormalities. IMPRESSION: 1. Interval improvement in pulmonary interstitial edema. Persistent left perihilar pulmonary opacity. Continued attention on follow-up examination is recommended. 2. Support hardware, as detailed above. Interpreted by: Antwon Abbott MD Signed by: Antwon Abbott MD 07/13/19 Final result Normal [place], [place] APTTon 07-12-2019 aPTT Coag (Bld) [Time] 43.4 s High 20.5-30.5 [facility] Comment on above: Performed By: #### C DP, PFA, CP, GLYHGB #### [facility] [address] [place] [phone] Corrosion Control Specialist: Savage Jacob MD aPTT Coag (Bld) [Time] 43.4 s High [place] Interpretation and review of laboratory results Abnormal [place] aPTT Coag (Bld) [Time] 31.5 s High 20.5-30.5 [facility] Comment on above: Performed By: #### C DP, PFA, CP, GLYHGB #### [facility] [employer] [address] [place] [phone] Corrosion Control Specialist: Savage Jacob MD aPTT Coag (Bld) [Time] 31.5 s High [place] Interpretation and review of laboratory results Abnormal [place] aPTT Coag (Bld) [Time] 56.2 s High 20.5-30.5 [place] Comment on above: Performed By: #### C DP, PFA, CP, GLYHGB #### [facility] [employer] [address] [place] [address] Corrosion Control Specialist: Savage Jacob MD Interpretation and review of laboratory results Abnormal [place] Anion Gap (Calc) POCon 07-12 Anion gap [Moles/Vol] 11 mmol/L 7 - 16 mmol/L [place] Arterial Blood Gas, POCon Graham Test NOT REPORTED [place] FIO2 40.0 [place] Interpretation and review of laboratory results Abnormal [place] Mode [place] Negative Base Excess, Art NOT REPORTED [place] O2 Device/Flow/% Adult Ventilator [place] POC HCO3 29.2 mmol/L High 21 - 28 mmol/L [place] POC O2 SAT 96 % 94 - 98 % [place] POC pCO2 49.0 High [place] POC pCO2 Temp NOT REPORTED mm [place] P[place] pH 7.384 [place] POC pH Temp NOT REPORTED [place] POC PO2 86.5 [place] POC pO2 Temp NOT REPORTED mm Hg [place] Positive Base Excess, Art 4 High [place] Pt Temp NOT REPORTED [place] Sample Site NOT REPORTED [place], [place] TCO2 (calc), Art 31 mmol/L High 22 - 29 mmol/L [place] Graham Test NOT REPORTED [place] FIO2 40.0 [place] Interpretation and review of laboratory results Abnormal [place] Mode [place] Negative Base Excess, Art NOT REPORTED [place] O2 Device/Flow/% Adult Ventilator [place] POC HCO3 28.2 mmol/L High 21 - 28 mmol/L [place] POC O2 SAT 97 % 94 - 98 % [place] POC pCO2 44.0 [place] POC pCO2 Temp NOT REPORTED mm Hg [facility] [place] [place] pH 7.415 [place] POC pH Temp NOT REPORTED [place], [place] POC PO2 87.2 [place] POC pO2 Temp NOT REPORTED mm Hg [place] Positive Base Excess, Art 3 [place] Pt Temp NOT REPORTED [place] Sample Site NOT REPORTED [place] TCO2 (calc), Art 30 mmol/L High 22 - 29 mmol/L [place] Graham Test NOT APPLICABLE [place] FIO2 40.0 [place] Mode PRVC [place] Negative Base Excess, Art NOT REPORTED [place] O2 Device/Flow/% Adult Ventilator [place] POC HCO3 29.2 mmol/L High 21 - 28 mmol/L [place] POC O2 SAT 98 % 94 - 98 % [place] POC pCO2 45.3 [place] POC pCO2 Temp NOT REPORTED mm [place] POC pH 7.418 [place] POC pH Temp NOT REPORTED [place] POC PO2 107.0 [place] POC pO2 Temp NOT REPORTED mm Hg [place] Positive Base Excess, Art 4 High [place] Pt Temp NOT REPORTED [place] Sample Site Arterial Line [place] TCO2 (calc), Art 31 mmol/L High 22 - 29 mmol/L [place] B12/Folate Panelon 0 Cobalamin (Vitamin B12) [Mass/Vol] 1313 pg/mL High 232-1245 [facility] Comment on above: Performed By: #### C DP, PFA, CP, GLYHGB #### [facility] [employer] [address] [place] [address] Corrosion Control Specialist: Savage Jacob MD Folic Acid 7.0 ng/mL Normal >4.8 [facility] Comment on above: Performed By: #### C DP, PFA, CP, GLYHGB #### [facility] [employer] [address] [place] [phone] Corrosion Control Specialist: Savage Jacob MD Basic Metabolic Panelon 06-24 Anion gap [Moles/Vol] 13 mmol/L 9 - 17 mmol/L [place] Bun/Cre Ratio NOT REPORTED [place] Calcium [Mass/Vol] 8.3 mg/dL Low 8.6 - 10. 4 mg/dL [place] Chloride [Moles/Vol] 107 mmol/L 98 - 10 7 mmol/L [place] CO2 [Moles/Vol] 27 mmol/L 20 - 31 mmol/L [place] Creatinine [Mass/Vol] 1.2 mg/dL High 0.5 - 0.9 mg/dL [place] GFR 54 mL/min Low >60 [place], [place] GFR Comment [place] GFR Non- 44 mL/min Low >60 [place] GFR Staging NOT REPORTED [place], [place] Glucose [Mass/Vol] 133 mg/dL High 70 - 99 mg/dL [place], [place] Interpretation and review of laboratory results Abnormal [place] Potassium [Moles/Vol] 3.4 mmol/L Low 3.7 - 5.3 mmol/L [place] Sodium [Moles/Vol] 147 mmol/L High 135 - 144 mmol/L [place] Urea nitrogen [Mass/Vol] 28 mg/dL High 8 - 23 mg/dL [place] Basic Metabolic Profon 07-12 (cont.) Normal [facility] Comment on above: Result Comment: Aver age GFR for 70 or more years old: 75 mL/min/1.73sq m Chronic Kidney Disease: <60 mL/min/1.73sq m Kidney failure: <15 mL/min/1.73sq m eGFR calculated using average adult body mass. Additional eGFR calculator available at: http://[email or web address] Performed By: #### C DP, PFA, CP, GLYHGB #### [facility] [employer] [address] [place] [phone] Corrosion Control Specialist: Savage Jacob MD Anion gap [Moles/Vol] 13 mmol/L Normal 9-17 [facility] Comment on above: Performed By: #### C DP, PFA, CP, GLYHGB #### [place] [address] Corrosion Control Specialist: Savage Jacob MD Calcium [Mass/Vol] 8.3 mg/dL Low 8.6-10.4 [facility] Comment on above: Performed By: #### C DP, PFA, CP, GLYHGB #### [place] [address] Corrosion Control Specialist: Savage Jacob MD Chloride [Moles/Vol] 107 mmol/L Normal 98-107 [facility] Comment on above: Performed By: #### C DP, PFA, CP, GLYHGB #### [place] [address] Corrosion Control Specialist: Savage Jacob MD CO2 [Moles/Vol] 27 mmol/L Normal 20-31 [facility] Comment on above: Performed By: #### C DP, PFA, CP, GLYHGB #### [facility] [employer] [address] [place] [address] Corrosion Control Specialist: Savage Jacob MD Creatinine [Mass/Vol] 1.20 mg/dL High 0.50-0.90 [facility] Comment on above: Performed By: #### C DP, PFA, CP, GLYHGB #### [facility] [employer] [address] [place] [address] Corrosion Control Specialist: Savage Jacob MD GFR, Amer 54 mL/min Low >60 [facility] Comment on above: Performed By: #### C DP, PFA, CP, GLYHGB #### [facility] [employer] [address] [place] [phone] Corrosion Control Specialist: Savage Jacob MD GFR,non Amer 44 mL/min Low >60 [facility] Comment on above: Performed By: #### C DP, PFA, CP, GLYHGB #### [address] [address] Corrosion Control Specialist: Savage Jacob MD Glucose [Mass/Vol] 133 mg/dL High 70-99 [facility] Comment on above: Performed By: #### C DP, PFA, CP, GLYHGB #### [address] [address] Corrosion Control Specialist: Savage Jacob MD Potassium [Moles/Vol] 3.4 mmol/L Low 3.7-5.3 [facility] Comment on above: Performed By: #### C DP, PFA, CP, GLYHGB #### [address] [address] Corrosion Control Specialist: Savage Jacob MD Sodium [Moles/Vol] 147 mmol/L High 135-144 [facility] Comment on above: Performed By: #### C DP, PFA, CP, GLYHGB #### [address] [address] Corrosion Control Specialist: Savage Jacob MD Urea nitrogen [Mass/Vol] 28 mg/dL High 8-23 [facility] Comment on above: Performed By: #### C DP, PFA, CP, GLYHGB #### [address] [address] Corrosion Control Specialist: Savage Jacob MD BUN/CRE Ratio NOT REPORTED Normal 9-20 [facility] Comment on above: Performed By: #### C DP, PFA, CP, GLYHGB #### [facility] [employer] [address] [place] [address] [phone] Corrosion Control Specialist: Savage Jacob MD Staging: NOT REPORTED Normal [facility] Comment on above: Performed By: #### C DP, PFA, CP, GLYHGB #### [address] [phone] Corrosion Control Specialist: Savage Jacob MD CALCIUM, IONIC (POC)on 07-12 POC Ionized Calcium 1.17 mmol/L 1.15 - 1 .33 mmol/L [place] CBCon 07-12-2019 Erythrocyte distribution width (RBC) [Ratio] 15.6 % High 11.8-14.4 [facility] Comment on above: Performed By: #### C DP, PFA, CP, GLYHGB #### [address] [phone] Corrosion Control Specialist: Savage Jacob MD Hematocrit (Bld) [Volume fraction] 25.4 % Low 36.3-47.1 [facility] Comment on above: Performed By: #### C DP, PFA, CP, GLYHGB #### [facility] [employer] [address] [place] [phone] Corrosion Control Specialist: Savage Jacob MD Hemoglobin (Bld) [Mass/Vol] 7.9 g/dL Low 11.9-15.1 [facility] Comment on above: Performed By: #### C DP, PFA, CP, GLYHGB #### [facility] [employer] [address] [place] [phone] Corrosion Control Specialist: Savage Jacob MD MCH (RBC) [Entitic mass] 28.6 pg Normal 25.2-33.5 [facility] Comment on above: Performed By: #### C DP, PFA, CP, GLYHGB #### [facility] [employer] [address] [place] [address] [phone] Corrosion Control Specialist: Savage Jacob MD MCHC (RBC) [Mass/Vol] 31.1 g/dL Normal 28.4-34.8 [facility] Comment on above: Performed By: #### C DP, PFA, CP, GLYHGB #### [facility] [employer] [address] [place] [phone] Corrosion Control Specialist: Savage Jacob MD MCV (RBC) [Entitic vol] 92.0 fL Normal 82.6-102.9 [facility] Comment on above: Performed By: #### C DP, PFA, CP, GLYHGB #### [facility] [employer] [address] [place] [phone] Corrosion Control Specialist: Savage Jacob MD NRBC Automated 1.4 per 100 WBC High 0.0 [facility] Comment on above: Performed By: #### C DP, PFA, CP, GLYHGB #### [address] [address] Corrosion Control Specialist: Savage Jacob MD Platelet mean volume (Bld) [Entitic vol] 9.6 fL Normal 8.1-13.5 [facility] Comment on above: Performed By: #### C DP, PFA, CP, GLYHGB #### [facility] [employer] [address] [place] [phone] Corrosion Control Specialist: Savage Jacob MD Platelets (Bld) [#/Vol] 263 10*3/uL Normal 138-453 [facility] Comment on above: Performed By: #### C DP, PFA, CP, GLYHGB #### [facility] [employer] [address] [place] [phone] Corrosion Control Specialist: Savage Jacob MD RBC (Bld) [#/Vol] 2.76 10*6/uL Low 3.95-5.11 [facility] Comment on above: Performed By: #### C DP, PFA, CP, GLYHGB #### [address] [address] Corrosion Control Specialist: Savage Jacob MD WBC (Bld) [#/Vol] 8.4 10*3/uL Normal 3.5-11.3 [facility] Comment on above: Performed By: #### C DP, PFA, CP, GLYHGB #### [facility] [employer] [address] [place] [address] Corrosion Control Specialist: Savage Jacob MD Erythrocyte distribution width (RBC) [Ratio] 15.6 % High 11.8 - 14.4 % [place] Hematocrit (Bld) [Volume fraction] 25.4 % Low 36.3 - 47.1 % [place] Hemoglobin (Bld) [Mass/Vol] 7.9 g/dL Low 11.9 - 15.1 g/dL [place] Interpretation and review of laboratory results Abnormal [place] MCH (RBC) [Entitic mass] 28.6 pg 25.2 - 33.5 pg [place] MCHC (RBC) [Mass/Vol] 31.1 g/dL 28.4 - 34.8 g/dL [place] MCV (RBC) [Entitic vol] 92.0 fL 82.6 - 102.9 fL [place] Platelet mean volume (Bld) [Entitic vol] 9.6 fL 8.1 - 13.5 fL [place] Platelets (Bld) [#/Vol] 263 10*3/uL [place] RBC (Bld) [#/Vol] 2.76 10*6/uL Low 3.95 - 5.1 1 m/uL [place] WBC (Bld) [#/Vol] 1.4 10*3/uL High 0.0 per 10 0 WBC [place] WBC (Bld) [#/Vol] 8.4 10*3/uL [place] CHLORIDE (POC)on 07-12-2019 POC Chloride 106 mmol/L 98 - 107 mmol/L [place] CORTISOLon 07-12-2019 Cortisol 12.6 ug/dL 2.7 - 18.4 ug/dL [place] Cortisol Collection Info NOT REPORTED [place] Cortisolon 07-12-2019 Cortisol 12.6 ug/dL Normal 2.7-18.4 [facility] Comment on above: Result Comment: Cortisol Reference Range: AM 6.0-18.4 PM 2.7-10.5 Performed By: #### C DP, PFA, CP, GLYHGB #### [address] [phone] Corrosion Control Specialist: Savage Jacob MD Collection Info. NOT REPORTED Normal [facility] Comment on above: Performed By: #### C DP, PFA, CP, GLYHGB #### [address] [address] Corrosion Control Specialist: Savage Jacob MD Creatinine W/GFR Point of Ca reon 07-12-2019 GFR Comment 50 mL/min Low >60 [place] GFR Comment [place] GFR Non- 42 mL/min Low >60 [place] POC Creatinine 1.27 mg/dL High 0.51 - 1.19 mg/dL [place] EEG video monitoringon 07-12 [place] Electrolyteson 07-12-2019 Anion gap [Moles/Vol] 11 mmol/L Normal 9-17 [facility] Comment on above: Performed By: #### C DP, PFA, CP, GLYHGB #### [address] [address] Corrosion Control Specialist: Savage Jacob MD Chloride [Moles/Vol] 110 mmol/L High 98-107 [facility] Comment on above: Performed By: #### C DP, PFA, CP, GLYHGB #### [facility] [employer] [address] [place] [phone] Corrosion Control Specialist: Savage Jacob MD CO2 [Moles/Vol] 26 mmol/L Normal 20-31 [facility] Comment on above: Performed By: #### C DP, PFA, CP, GLYHGB #### [facility] [address] [place] [address] Corrosion Control Specialist: Savage Jacob MD Potassium [Moles/Vol] 4.0 mmol/L Normal 3.7-5.3 [facility] Comment on above: Performed By: #### C DP, PFA, CP, GLYHGB #### [facility] [address] [place], [place] [phone] Corrosion Control Specialist: Savage Jacob MD Sodium [Moles/Vol] 147 mmol/L High 135-144 [facility] Comment on above: Performed By: #### C DP, PFA, CP, GLYHGB #### [facility] [address] [place] [phone] Corrosion Control Specialist: Savage Jacob MD Hemoglobin and hematocrit, b loodon 07-12-2019 POC Hematocrit 25 % Low 36 - 46 % [place] POC Hemoglobin 8.4 g/dL Low 12 - 16 g/dL [place], [place] Lactic Acid, POCon 0 POC Lactic Acid 0.59 mmol/L 0.56 - 1.39 mmol/L [place] MAGNESIUM, IONIZEDon 020 Magnesium, Ionized 0.52 mmol/L 0.45 - 0. 6 mmol/L [place] MRA HEAD WO CONTRASTon 07-12 MRA HEAD WO CONTRAST EXAMINATION: MRI OF THE BRAIN WITHOUT CONTRAST; MRA OF THE HEAD WITHOUT CONTRAST; MRA OF THE NECK WITHOUT CONTRAST 07/12/2019 12:04 pm TECHNIQUE: Multiplanar multisequence MRI of the brain was performed without the administration of intravenous contrast.; MRA of the head was performed utilizing [id number] imaging with MIP images. No intravenous contrast was administered.; Multiplanar multisequence MRA of the neck was performed without the administration of intravenous contrast. Stenosis of the internal carotid arteries measured using NASCET criteria. 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 There is associated local mass effect without midline shift. There are a few scattered tiny foci acute to subacute infarctions in the bilateral cerebral hemispheres and right cerebellar hemisphere. There are small old lacunar infarcts in the bilateral basal ganglia/periventricul ar white matter. There is mild parenchymal volume loss. There are scattered foci of T2/FLAIR hyperintensity in the periventricular and subcortical white matter, likely related to mild chronic microvascular disease. No acute intracranial hemorrhage. There is no hydrocephalus. The sellar/suprasellar regions appear unremarkable. The normal signal voids within the major intracranial vessels appear maintained. ORBITS: The visualized portion of the orbits demonstrate no acute abnormality. SINUSES: There is scattered mild mucosal thickening in the paranasal sinuses. There are moderate bilateral mastoid effusions. BONES/SOFT TISSUES: The bone marrow signal intensity appears normal. The soft tissues demonstrate no acute abnormality. MRA HEAD: ANTERIOR CIRCULATION: There is 80% focal stenosis at the left ICA terminus. There is small caliber of the M1 segment of left MCA. There is occlusion of A1 segment of left MONSTER. The remainder of the left MONSTER is patent. The anterior communicating artery is patent. The right internal carotid artery, right anterior cerebral and right middle cerebral arteries demonstrate no focal stenosis. There is 90% focal stenosis at the origin of the P2 segment of the right POLICY SERVICE COORDINATOR. There are additional 80% focal stenosis along the P2 segments of the bilateral cable braider. The vertebral and basilar arteries appear unremarkable. No intracranial aneurysm. MRA neck: Common and internal carotid arteries: The bilateral common carotid arteries are within normal limits without flow limiting stenosis. There is approximately 40% stenosis at the origins of the bilateral internal carotid arteries by NASCET criteria. There is no dissection or vascular injury. Vertebral arteries: There is left dominance of the vertebral arteries. The bilateral vertebral arteries are within normal limits without focal stenosis or dissection. 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 Associated local mass effect without midline shift. A few scattered tiny foci acute to subacute infarctions in the bilateral cerebral hemispheres and right cerebellar hemisphere, possibly embolic. Small old lacunar infarcts in the bilateral basal ganglia/periventricul ar white matter. 80% focal stenosis at the left ICA terminus. Asymmetrically small caliber of the M1 segment of left MCA. Occlusion of A1 segment of left MONSTER. 90% focal stenosis at the origin of the P2 segment of the right POLICY SERVICE COORDINATOR. Additional 80% focal stenosis along the P2 segments of the bilateral cable braider. 40% stenosis at the origins of the bilateral internal carotid arteries. The results were sent to radiology results communication. Interpreted by: Red Sheets MD Signed by: Red Sheets MD 07/12/19 Final result Normal [facility] MRA NECK WO CONTRASTon 07-12 MRA NECK WO CONTRAST EXAMINATION: MRI OF THE BRAIN WITHOUT CONTRAST; MRA OF THE HEAD WITHOUT CONTRAST; MRA OF THE NECK WITHOUT CONTRAST 07/12/2019 12:04 pm TECHNIQUE: Multiplanar multisequence MRI of the brain was performed without the administration of intravenous contrast.; MRA of the head was performed utilizing [id number] imaging with MIP images. No intravenous contrast was administered.; Multiplanar multisequence MRA of the neck was performed without the administration of intravenous contrast. Stenosis of the internal carotid arteries measured using NASCET criteria. 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 There is associated local mass effect without midline shift. There are a few scattered tiny foci acute to subacute infarctions in the bilateral cerebral hemispheres and right cerebellar hemisphere. There are small old lacunar infarcts in the bilateral basal ganglia/periventricul ar white matter. There is mild parenchymal volume loss. There are scattered foci of T2/FLAIR hyperintensity in the periventricular and subcortical white matter, likely related to mild chronic microvascular disease. No acute intracranial hemorrhage. There is no hydrocephalus. The sellar/suprasellar regions appear unremarkable. The normal signal voids within the major intracranial vessels appear maintained. ORBITS: The visualized portion of the orbits demonstrate no acute abnormality. SINUSES: There is scattered mild mucosal thickening in the paranasal sinuses. There are moderate bilateral mastoid effusions. BONES/SOFT TISSUES: The bone marrow signal intensity appears normal. The soft tissues demonstrate no acute abnormality. MRA HEAD: ANTERIOR CIRCULATION: There is 80% focal stenosis at the left ICA terminus. There is small caliber of the M1 segment of left MCA. There is occlusion of A1 segment of left MONSTER. The remainder of the left MONSTER is patent. The anterior communicating artery is patent. The right internal carotid artery, right anterior cerebral and right middle cerebral arteries demonstrate no focal stenosis. There is 90% focal stenosis at the origin of the P2 segment of the right POLICY SERVICE COORDINATOR. There are additional 80% focal stenosis along the P2 segments of the bilateral cable braider. The vertebral and basilar arteries appear unremarkable. No intracranial aneurysm. MRA neck: Common and internal carotid arteries: The bilateral common carotid arteries are within normal limits without flow limiting stenosis. There is approximately 40% stenosis at the origins of the bilateral internal carotid arteries by NASCET criteria. There is no dissection or vascular injury. Vertebral arteries: There is left dominance of the vertebral arteries. The bilateral vertebral arteries are within normal limits without focal stenosis or dissection. 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 Associated local mass effect without midline shift. A few scattered tiny foci acute to subacute infarctions in the bilateral cerebral hemispheres and right cerebellar hemisphere, possibly embolic. Small old lacunar infarcts in the bilateral basal ganglia/periventricul ar white matter. 80% focal stenosis at the left ICA terminus. Asymmetrically small caliber of the M1 segment of left MCA. Occlusion of A1 segment of left MONSTER. 90% focal stenosis at the origin of the P2 segment of the right POLICY SERVICE COORDINATOR. Additional 80% focal stenosis along the P2 segments of the bilateral cable braider. 40% stenosis at the origins of the bilateral internal carotid arteries. The results were sent to radiology results communication. Interpreted by: Red Sheets MD Signed by: Red Sheets MD 07/12/19 Final result Normal [facility] MRI BRAIN WO CONTRASTon 06-24 MRI BRAIN WO CONTRAST EXAMINATION: MRI OF THE BRAIN WITHOUT CONTRAST; MRA OF THE HEAD WITHOUT CONTRAST; MRA OF THE NECK WITHOUT CONTRAST 07/12/2019 12:04 pm TECHNIQUE: Multiplanar multisequence MRI of the brain was performed without the administration of intravenous contrast.; MRA of the head was performed utilizing [id number] imaging with MIP images. No intravenous contrast was administered.; Multiplanar multisequence MRA of the neck was performed without the administration of intravenous contrast. Stenosis of the internal carotid arteries measured using NASCET criteria. 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 There is associated local mass effect without midline shift. There are a few scattered tiny foci acute to subacute infarctions in the bilateral cerebral hemispheres and right cerebellar hemisphere. There are small old lacunar infarcts in the bilateral basal ganglia/periventricul ar white matter. There is mild parenchymal volume loss. There are scattered foci of T2/FLAIR hyperintensity in the periventricular and subcortical white matter, likely related to mild chronic microvascular disease. No acute intracranial hemorrhage. There is no hydrocephalus. The sellar/suprasellar regions appear unremarkable. The normal signal voids within the major intracranial vessels appear maintained. ORBITS: The visualized portion of the orbits demonstrate no acute abnormality. SINUSES: There is scattered mild mucosal thickening in the paranasal sinuses. There are moderate bilateral mastoid effusions. BONES/SOFT TISSUES: The bone marrow signal intensity appears normal. The soft tissues demonstrate no acute abnormality. MRA HEAD: ANTERIOR CIRCULATION: There is 80% focal stenosis at the left ICA terminus. There is small caliber of the M1 segment of left MCA. There is occlusion of A1 segment of left MONSTER. The remainder of the left MONSTER is patent. The anterior communicating artery is patent. The right internal carotid artery, right anterior cerebral and right middle cerebral arteries demonstrate no focal stenosis. There is 90% focal stenosis at the origin of the P2 segment of the right POLICY SERVICE COORDINATOR. There are additional 80% focal stenosis along the P2 segments of the bilateral cable braider. The vertebral and basilar arteries appear unremarkable. No intracranial aneurysm. MRA neck: Common and internal carotid arteries: The bilateral common carotid arteries are within normal limits without flow limiting stenosis. There is approximately 40% stenosis at the origins of the bilateral internal carotid arteries by NASCET criteria. There is no dissection or vascular injury. Vertebral arteries: There is left dominance of the vertebral arteries. The bilateral vertebral arteries are within normal limits without focal stenosis or dissection. 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 Associated local mass effect without midline shift. A few scattered tiny foci acute to subacute infarctions in the bilateral cerebral hemispheres and right cerebellar hemisphere, possibly embolic. Small old lacunar infarcts in the bilateral basal ganglia/periventricul ar white matter. 80% focal stenosis at the left ICA terminus. Asymmetrically small caliber of the M1 segment of left MCA. Occlusion of A1 segment of left MONSTER. 90% focal stenosis at the origin of the P2 segment of the right POLICY SERVICE COORDINATOR. Additional 80% focal stenosis along the P2 segments of the bilateral cable braider. 40% stenosis at the origins of the bilateral internal carotid arteries. The results were sent to radiology results communication. Interpreted by: Red Sheets MD Signed by: Red Sheets MD 07/12/19 Final result Normal [facility] Magnesiumon 07-12-2019 Magnesium [Mass/Vol] 2.0 mg/dL Normal 1.6-2.6 [facility] Comment on above: Performed By: #### C DP, PFA, CP, GLYHGB #### [facility] [employer] [address] [place] [id number] Corrosion Control Specialist: Savage Jacob MD Magnesium [Mass/Vol] 2.0 mg/dL 1.6 - 2 .6 mg/dL [facility], [place] Magnesium, Ionizedon 020 Magnesium [Mass/Vol] 0.52 mmol/L Normal 0.45-0.60 [facility] Comment on above: Performed By: #### C DP, PFA, CP, GLYHGB #### [facility] [employer] [address] [place] [id number] Corrosion Control Specialist: Savage Jacob MD Otheron 07-12-2019 [facility] [place] Interpretation and review of laboratory results Abnormal [place] POC Glucose Fingerstickon Interpretation and review of laboratory results Abnormal [place] Glucose 131 mg/dL High 65 - 105 mg/dL [place] Interpretation and review of laboratory results Abnormal [place] Glucose 119 mg/dL High 65 - 105 mg/dL [place] Glucose 103 mg/dL 65 - 105 mg/dL [place] POCT Glucoseon 07-12-2019 POC Glucose 126 mg/dL High 74 - 100 mg/dL [place] POTASSIUM (POC)on 07-12-2019 POC Potassium 3.3 mmol/L Low 3.5 - 4.5 mmol/L [place] PTon 07-12-2019 INR Coag (PPP) [Relative time] 1.1 {INR} Normal [place] Comment on above: Result Comment: Therapeutic Range: Moderate Anticoagulant Intensity: INR = 2.0-3.0 High Anticoagulant Intensity: INR = 2.5-3.5 Performed By: #### C DP, PFA, CP, GLYHGB #### [facility] [address] [place] [id number] Corrosion Control Specialist: Savage Jacob MD PT Coag (PPP) [Time] 11.4 s Normal 9.0-12.0 [place], [place] Comment on above: Performed By: #### C DP, PFA, CP, GLYHGB #### [facility] [employer] [address] [place] [id number] Corrosion Control Specialist: Savage Jacob MD Phosphoruson 07-12-2019 Phosphate [Mass/Vol] 2.6 mg/dL 2.6 - 4 .5 mg/dL [place] Phosphorus, Inorg.on 020 Phosphorus, Inorg. 2.6 mg/dL Normal 2.6-4.5 [facility] Comment on above: Performed By: #### C DP, PFA, CP, GLYHGB #### [facility] [employer] [address] [place] [id number] Corrosion Control Specialist: Savage Jacob MD SODIUM (POC)on 07-12-2019 POC Sodium 146 mmol/L 138 - 146 mmol/L [place] T4, Freeon 07-12-2019 Thyroxine, Free 1.13 ng/dL 0.93 - 1.7 ng/dL [place] TSH w/reflex to FT4on 2019 TSH Qn 8.82 m[IU]/L High 0.30-5.00 [facility] Comment on above: Performed By: #### C DP, PFA, CP, GLYHGB #### [facility] [address] [place] [id number] Corrosion Control Specialist: Savage Jacob MD TSH with Reflexon 07-12-2019 Interpretation and review of laboratory results Abnormal [place] TSH Qn 8.82 m[IU]/L [place] Thyroxine, Freeon 07-12-2019 Thyroxine, Free 1.13 ng/dL Normal 0.93-1.70 [facility] Comment on above: Performed By: #### C DP, PFA, CP, GLYHGB #### [facility] [address] [place] [id number] Corrosion Control Specialist: Savage Jacob MD VITAMIN B12 & FOLATEon 07-12 Cobalamin (Vitamin B12) [Mass/Vol] 1313 pg/mL High 232 - 1245 pg/mL [place] Folate 7 ng/mL >4.8 [place] Interpretation and review of laboratory results Abnormal [place] XR CHEST PORTABLEon 07-12-19 XR CHEST PORTABLE EXAMINATION: ONE XRAY VIEW OF THE CHEST 07/12/2019 7:20 am COMPARISON: July 11, 2019 HISTORY: ORDERING SYSTEM PROVIDED HISTORY: POST CABG TECHNOLOGIST PROVIDED HISTORY: POST CABG Reason for Exam: port upr FINDINGS: The ETT is 3.7 cm above the janes. The feeding tube is inserted with its tip below the diaphragm and beyond the field of view. A right subclavian catheter is seen with its tip at the superior cavoatrial junction. A right IJ catheter sheath is stable. The patient is status post valvular replacement. The cardiomediastinal silhouette is stable. There are patchy airspace opacities bilaterally, may be related to pulmonary edema versus pneumonia. There is no pleural effusion. There is no pneumothorax. There is no acute osseous abnormality. IMPRESSION: Patchy airspace opacities bilaterally, may be related to pulmonary edema versus pneumonia, grossly stable. Stable mild cardiomegaly. Interpreted by: Red Sheets MD Signed by: Red Sheets MD 07/12/19 Final result Normal [place] APTTon 07-11-2019 aPTT Coag (Bld) [Time] 57.0 s High 20.5-30.5 [facility] Comment on above: Performed By: #### C DP, PFA, CP, GLYHGB #### [address] [id number] Corrosion Control Specialist: Savage Jacob MD aPTT Coag (Bld) [Time] 57.0 s [place] Interpretation and review of laboratory results Abnormal [place] aPTT Coag (Bld) [Time] 51.5 s High 20.5-30.5 [facility] Comment on above: Performed By: #### C DP, PFA, CP, GLYHGB #### [address] [id number] Corrosion Control Specialist: Savage Jacob MD aPTT Coag (Bld) [Time] 51.5 s [place] Interpretation and review of laboratory results Abnormal [place] aPTT Coag (Bld) [Time] 55.6 s High 20.5-30.5 [facility] Comment on above: Performed By: #### C DP, PFA, CP, GLYHGB #### [address] [id number] Corrosion Control Specialist: Savage Jacob MD aPTT Coag (Bld) [Time] 55.6 s [place] Interpretation and review of laboratory results Abnormal [place] Anion Gap (Calc) POCon 07-11 Anion gap [Moles/Vol] 10 mmol/L 7 - 16 mmol/L [place] Anion gap [Moles/Vol] 10 mmol/L 7 - 16 mmol/L [place] Anion gap [Moles/Vol] 11 mmol/L 7 - 16 mmol/L [place] Anion gap [Moles/Vol] 12 mmol/L 7 - 16 mmol/L [place] Anion gap [Moles/Vol] 11 mmol/L 7 - 16 mmol/L [place] Anion gap [Moles/Vol] 12 mmol/L 7 - 16 mmol/L [place] Anion gap [Moles/Vol] 11 mmol/L 7 - 16 mmol/L [place] Anion gap [Moles/Vol] 12 mmol/L 7 - 16 mmol/L [place] Arterial Blood Gas, POCon [place] Test NOT REPORTED [place] FIO2 40.0 [place] Mode NOT REPORTED [place] Negative Base Excess, Art NOT REPORTED [place] O2 Device/Flow/% Adult Ventilator [place] POC HCO3 29.7 mmol/L High 21 - 28 mmol/L [place] O2 SAT 98 % 94 - 98 % [place] pCO2 42.9 [place] pCO2 Temp NOT REPORTED mm Hg [facility] [place] pH 7.448 [place] POC pH Temp NOT REPORTED [facility] [place] PO2 99.4 [place] pO2 Temp NOT REPORTED mm Hg [place] Positive Base Excess, Art 5 High [place] Pt Temp NOT REPORTED [place] Sample Site Arterial Line [place] TCO2 (calc), Art 31 mmol/L High 22 - 29 mmol/L [place] Graham Test NOT REPORTED [place] FIO2 50.0 [place] Mode NOT REPORTED [place] Negative Base Excess, Art NOT REPORTED [place] O2 Device/Flow/% Adult Ventilator [place] POC HCO3 29.4 mmol/L High 21 - 28 mmol/L [place] POC O2 SAT 99 % High 94 - 98 % [place]OC pCO2 42.7 [place] POC pCO2 Temp NOT REPORTED mm Hg [facility] [place] pH 7.446 [place] POC pH Temp NOT REPORTED [place] POC PO2 148.2 [place] POC pO2 Temp NOT REPORTED mm Hg [place] Positive Base Excess, Art 5 High [place] Pt Temp NOT REPORTED [place] Sample Site Arterial Line [place] TCO2 (calc), Art 31 mmol/L High 22 - 29 mmol/L [place] Graham Test NOT REPORTED [place] FIO2 65.0 [place] Mode NOT REPORTED [place] Negative Base Excess, Art NOT REPORTED [place] O2 Device/Flow/% Adult Ventilator [place] POC HCO3 29.6 mmol/L High 21 - 28 mmol/L [place] POC O2 SAT 100 % High 94 - 98 % [place] POC pCO2 42.2 [place] POC pCO2 Temp NOT REPORTED mm Hg [place] P[place] pH 7.455 [place] POC pH Temp NOT [place]PORTED [place] POC PO2 192.9 [place] POC pO2 Temp NOT REPORTED mm Hg [place] Positive Base Excess, Art 5 High [place] Pt Temp NOT REPORTED [place] Sample Site Arterial Line [place] TCO2 (calc), Art 31 mmol/L High 22 - 29 mmol/L [place] Graham Test NOT REPORTED [place] FIO2 90.0 [place] Mode NOT REPORTED [place] Negative Base Excess, Art NOT REPORTED [place] O2 Device/Flow/% Adult Ventilator [place] POC HCO3 30.3 mmol/L High 21 - 28 mmol/L [place] POC O2 SAT 100 % High 94 - 98 % [place] POC pCO2 44.8 [place] POC pCO2 Temp NOT REPORTED mm Hg [place] pH 7.438 [place] POC pH Temp NOT REPORTED [facility] [place] PO2 407.6 [place] POC pO2 Temp NOT REPORTED mm Hg [place] Positive Base Excess, Art 6 High [place] Pt Temp NOT REPORTED [place] Sample Site Arterial Line [place] TCO2 (calc), Art 32 mmol/L High 22 - 29 mmol/L [place] Graham Test NOT REPORTED [place] FIO2 90.0 [place] Mode NOT REPORTED [place] Negative Base Excess, Art NOT REPORTED [place] O2 Device/Flow/% Adult Ventilator [place] POC HCO3 29.5 mmol/L High 21 - 28 mmol/L [place] POC O2 SAT 98 % 94 - 98 % [place] POC pCO2 41.6 [place] POC pCO2 Temp NOT REPORTED mm Hg [place] P[place] pH 7.460 [place] POC pH Temp NOT REPORTED [place] POC PO2 91.1 [place] POC pO2 Temp NOT REPORTED mm Hg [place] Positive Base Excess, Art 5 High [place] Pt Temp NOT REPORTED [place] Sample Site Arterial Line [place] TCO2 (calc), Art 31 mmol/L High 22 - 29 mmol/L [place] Graham Test NOT REPORTED [place] FIO2 100.0 [place] Mode NOT REPORTED [place] Negative Base Excess, Art NOT REPORTED [place] O2 Device/Flow/% Adult Ventilator [place] POC HCO3 28.7 mmol/L High 21 - 28 mmol/L [place] POC O2 SAT 86 % Low 94 - 98 % [place] POC pCO2 31.7 Low [place] POC pCO2 Temp NOT REPORTED mm Hg [facility], [place] POC pH 7.566 High [place] POC pH Temp NOT REPORTED [facility] [place] P[place] PO2 43.2 Critically low [place] POC pO2 Temp NOT REPORTED mm Hg [place] Positive Base Excess, Art 6 High [place] Pt Temp NOT REPORTED [place] Sample Site Arterial Line [place] TCO2 (calc), Art 30 mmol/L High 22 - 29 mmol/L [place] Graham Test NOT APPLICABLE [place] FIO2 100.0 [place] Mode PRVC [place] Negative Base Excess, Art NOT REPORTED [place] O2 Device/Flow/% Adult Ventilator [place] POC HCO3 29.6 mmol/L High 21 - 28 mmol/L [place] POC O2 SAT 86 % Low 94 - 98 % [place] POC pCO2 42.3 [place] POC pCO2 Temp NOT REPORTED mm Hg [facility], [place] POC pH 7.452 [place] POC pH Temp NOT REPORTED [facility] [place] PO2 49.8 Critically low [place] POC pO2 Temp NOT REPORTED mm Hg [place] Positive Base Excess, Art 5 High [place] Pt Temp NOT REPORTED [place] Sample Site Arterial Line [place] TCO2 (calc), Art 31 mmol/L High 22 - 29 mmol/L [place] Graham Test Positive [place] FIO2 100.0 [place] Mode PRVC [place] Negative Base Excess, Art NOT REPORTED [place] O2 Device/Flow/% Adult Ventilator [place] POC HCO3 30.2 mmol/L High 21 - 28 mmol/L [place] POC O2 SAT 86 % Low 94 - 98 % [place] POC pCO2 45.0 [place] POC pCO2 Temp NOT REPORTED mm Hg [place] pH 7.435 [place] POC pH Temp NOT REPORTED [place] P[place] PO2 49.7 Critically low [place] POC pO2 Temp NOT REPORTED mm Hg [place] Positive Base Excess, Art 5 High [place] Pt Temp NOT REPORTED [place] Sample Site Arterial Line [place] TCO2 (calc), Art 32 mmol/L High 22 - 29 mmol/L [place] BASIC METABOLIC PANELon 06-23 Anion gap [Moles/Vol] 15 mmol/L 9 - 17 mmol/L [place] Bun/Cre Ratio NOT REPORTED [place] Calcium [Mass/Vol] 8.3 mg/dL Low 8.6 - 10. 4 mg/dL [place] Chloride [Moles/Vol] 106 mmol/L 98 - 10 7 mmol/L [place] CO2 [Moles/Vol] 26 mmol/L 20 - 31 mmol/L [place] Creatinine [Mass/Vol] 1.09 mg/dL High 0.5 - 0.9 mg/dL [place] GFR >60 >60 mL/min [place], [place] GFR Comment [place] GFR Non- 50 mL/min Low >60 [place] GFR Staging NOT REPORTED [place] Glucose [Mass/Vol] 166 mg/dL High 70 - 99 mg/dL [place], [place] Interpretation and review of laboratory results Abnormal [place] Potassium [Moles/Vol] 3.5 mmol/L Low 3.7 - 5.3 mmol/L [place] Sodium [Moles/Vol] 147 mmol/L High 135 - 144 mmol/L [place] Urea nitrogen [Mass/Vol] 30 mg/dL High 8 - 23 mg/dL [place] Basic Metabolic Panelon 06-23 Anion gap [Moles/Vol] 17 mmol/L 9 - 17 mmol/L [place] Bun/Cre Ratio NOT REPORTED [place] Calcium [Mass/Vol] 8.7 mg/dL 8.6 - 10. 4 mg/dL [place] Chloride [Moles/Vol] 102 mmol/L 98 - 10 7 mmol/L [place] CO2 [Moles/Vol] 26 mmol/L 20 - 31 mmol/L [place] Creatinine [Mass/Vol] 1.29 mg/dL High 0.5 - 0.9 mg/dL [place] GFR 50 mL/min Low >60 [place], [place] GFR Comment [place] GFR Non- 41 mL/min Low >60 [place] GFR Staging NOT REPORTED [place] Glucose [Mass/Vol] 287 mg/dL High 70 - 99 mg/dL [place], [place] Potassium [Moles/Vol] 3.2 mmol/L Low 3.7 - 5.3 mmol/L [place] Sodium [Moles/Vol] 145 mmol/L High 135 - 144 mmol/L [place] Urea nitrogen [Mass/Vol] 32 mg/dL High 8 - 23 mg/dL [place] Basic Metabolic Profon 07-11 (cont.) Normal [facility] Comment on above: Result Comment: Aver age GFR for 70 or more years old: 75 mL/min/1.73sq m Chronic Kidney Disease: <60 mL/min/1.73sq m Kidney failure: <15 mL/min/1.73sq m eGFR calculated using average adult body mass. Additional eGFR calculator available at: http://[email or web address].com/multiple_crcl_2012.htm Performed By: #### C DP, PFA, CP, GLYHGB #### [address] [address] Corrosion Control Specialist: Savage Jacob MD Anion gap [Moles/Vol] 15 mmol/L Normal 9-17 [facility] Comment on above: Performed By: #### C DP, PFA, CP, GLYHGB #### [address] [address] Corrosion Control Specialist: Savage Jacob MD Calcium [Mass/Vol] 8.3 mg/dL Low 8.6-10.4 [facility] Comment on above: Performed By: #### C DP, PFA, CP, GLYHGB #### [address] [address] Corrosion Control Specialist: Savage Jacob MD Chloride [Moles/Vol] 106 mmol/L Normal 98-107 [facility] Comment on above: Performed By: #### C DP, PFA, CP, GLYHGB #### [address] [address] Corrosion Control Specialist: Savage Jacob MD CO2 [Moles/Vol] 26 mmol/L Normal 20-31 [facility] Comment on above: Performed By: #### C DP, PFA, CP, GLYHGB #### [facility] [employer] [address] [place] [address] Corrosion Control Specialist: Savage Jacob MD Creatinine [Mass/Vol] 1.09 mg/dL High 0.50-0.90 [facility] Comment on above: Performed By: #### C DP, PFA, CP, GLYHGB #### [facility] [employer] [address] [place] [address] Corrosion Control Specialist: Savage Jacob MD GFR, Amer >60 Normal >60 [facility] Comment on above: Performed By: #### C DP, PFA, CP, GLYHGB #### [address] [address] Corrosion Control Specialist: Savage Jacob MD GFR,non Amer 50 mL/min Low >60 [facility] Comment on above: Performed By: #### C DP, PFA, CP, GLYHGB #### [address] [address] Corrosion Control Specialist: Savage Jacob MD Glucose [Mass/Vol] 166 mg/dL High 70-99 [facility] Comment on above: Performed By: #### C DP, PFA, CP, GLYHGB #### [address] [address] Corrosion Control Specialist: Savage Jacob MD Potassium [Moles/Vol] 3.5 mmol/L Low 3.7-5.3 [facility] Comment on above: Performed By: #### C DP, PFA, CP, GLYHGB #### [address] [address] Corrosion Control Specialist: Savage Jacob MD Sodium [Moles/Vol] 147 mmol/L High 135-144 [facility] Comment on above: Performed By: #### C DP, PFA, CP, GLYHGB #### [address] [address] Corrosion Control Specialist: Savage Jacob MD Urea nitrogen [Mass/Vol] 30 mg/dL High 8-23 [facility] Comment on above: Performed By: #### C DP, PFA, CP, GLYHGB #### [facility] [employer] [address] [place] [address] Corrosion Control Specialist: Savage Jacob MD BUN/CRE Ratio NOT REPORTED Normal 9-20 [facility] Comment on above: Performed By: #### C DP, PFA, CP, GLYHGB #### [address] [address] Corrosion Control Specialist: Savage Jacob MD Staging: NOT REPORTED Normal [facility] Comment on above: Performed By: #### C DP, PFA, CP, GLYHGB #### [address] [address] Corrosion Control Specialist: Savage Jacob MD (cont.) Normal [facility] Comment on above: Result Comment: Aver age GFR for 70 or more years old: 75 mL/min/1.73sq m Chronic Kidney Disease: <60 mL/min/1.73sq m Kidney failure: <15 mL/min/1.73sq m eGFR calculated using average adult body mass. Additional eGFR calculator available at: http://www.Dibsie/multiple_crcl_2011.htm Performed By: #### C DP, PFA, CP, GLYHGB #### [address] [address] Corrosion Control Specialist: Savage Jacob MD Anion gap [Moles/Vol] 17 mmol/L Normal 9-17 [facility] Comment on above: Performed By: #### C DP, PFA, CP, GLYHGB #### [address] [address] Corrosion Control Specialist: Savage Jacob MD Calcium [Mass/Vol] 8.7 mg/dL Normal 8.6-10.4 [facility] Comment on above: Performed By: #### C DP, PFA, CP, GLYHGB #### [facility] [employer] [address] [place] [address] Corrosion Control Specialist: Savage Jacob MD Chloride [Moles/Vol] 102 mmol/L Normal 98-107 [facility] Comment on above: Performed By: #### C DP, PFA, CP, GLYHGB #### [address] [address] Corrosion Control Specialist: Savage Jacob MD CO2 [Moles/Vol] 26 mmol/L Normal 20-31 [facility] Comment on above: Performed By: #### C DP, PFA, CP, GLYHGB #### [address] [address] Corrosion Control Specialist: Savage Jacob MD Creatinine [Mass/Vol] 1.29 mg/dL High 0.50-0.90 [facility] Comment on above: Performed By: #### C DP, PFA, CP, GLYHGB #### [address] [address] Corrosion Control Specialist: Savage Jacob MD GFR, Amer 50 mL/min Low >60 [facility] Comment on above: Performed By: #### C DP, PFA, CP, GLYHGB #### [address] [address] Corrosion Control Specialist: Savage Jacob MD GFR,non Amer 41 mL/min Low >60 [facility] Comment on above: Performed By: #### C DP, PFA, CP, GLYHGB #### [address] [address] Corrosion Control Specialist: Savage Jacob MD Glucose [Mass/Vol] 287 mg/dL High 70-99 [facility] Comment on above: Performed By: #### C DP, PFA, CP, GLYHGB #### [address] [address] Corrosion Control Specialist: Savage Jacob MD Potassium [Moles/Vol] 3.2 mmol/L Low 3.7-5.3 [facility] Comment on above: Performed By: #### C DP, PFA, CP, GLYHGB #### [address] [address] Corrosion Control Specialist: Savage Jacob MD Sodium [Moles/Vol] 145 mmol/L High 135-144 [facility] Comment on above: Performed By: #### C DP, PFA, CP, GLYHGB #### [facility] [address] [place] [address] Corrosion Control Specialist: Savage Jacob MD Urea nitrogen [Mass/Vol] 32 mg/dL High 8-23 [facility] Comment on above: Performed By: #### C DP, PFA, CP, GLYHGB #### [facility] [address] [place] [address] Corrosion Control Specialist: Savage Jacob MD BUN/CRE Ratio NOT REPORTED Normal - [facility] Comment on above: Performed By: #### C DP, PFA, CP, GLYHGB #### [facility] [employer] [address] [place] [address] Corrosion Control Specialist: Savage Jacob MD Staging: NOT REPORTED Normal [facility] Comment on above: Performed By: #### C DP, PFA, CP, GLYHGB #### [facility] [employer] [facility] [place] [address] Corrosion Control Specialist: Savage Jacob MD CALCIUM, IONIC (POC)on 07-11 POC Ionized Calcium 1.16 mmol/L 1.15 - 1 .33 mmol/L [place] POC Ionized Calcium 1.16 mmol/L 1.15 - 1 .33 mmol/L [place] POC Ionized Calcium 1.15 mmol/L 1.15 - 1 .33 mmol/L [place] POC Ionized Calcium 1.18 mmol/L 1.15 - 1 .33 mmol/L [place] POC Ionized Calcium 1.14 mmol/L Low 1.15 - 1 .33 mmol/L [place] POC Ionized Calcium 1.11 mmol/L Low 1.15 - 1 .33 mmol/L [place] POC Ionized Calcium 1.14 mmol/L Low 1.15 - 1 .33 mmol/L [place] POC Ionized Calcium 1.13 mmol/L Low 1.15 - 1 .33 mmol/L [place] CALCIUM, IONIZEDon 0 Calcium, Ion 1.07 mmol/L Low 1.13 - 1.33 mmol/L [place] Interpretation and review of laboratory results Abnormal [place] CBCon 07-11-2019 Erythrocyte distribution width (RBC) [Ratio] 15.4 % High 11.8-14.4 [facility] Comment on above: Performed By: #### C DP, PFA, CP, GLYHGB #### [facility] [address] [place] [address] Corrosion Control Specialist: Savage Jacob MD Hematocrit (Bld) [Volume fraction] 27.7 % Low 36.3-47.1 [facility] Comment on above: Performed By: #### C DP, PFA, CP, GLYHGB #### [facility] [address] [place] [address] Corrosion Control Specialist: Savage Jacob MD Hemoglobin (Bld) [Mass/Vol] 8.6 g/dL Low 11.9-15.1 [facility] Comment on above: Performed By: #### C DP, PFA, CP, GLYHGB #### [facility] [address] [place] [address] Corrosion Control Specialist: Savage Jacob MD MCH (RBC) [Entitic mass] 28.9 pg Normal 25.2-33.5 [facility] Comment on above: Performed By: #### C DP, PFA, CP, GLYHGB #### [facility] [address] [place] [address] Corrosion Control Specialist: Savage Jacob MD MCHC (RBC) [Mass/Vol] 31.0 g/dL Normal 28.4-34.8 [facility] Comment on above: Performed By: #### C DP, PFA, CP, GLYHGB #### [address] [address] Corrosion Control Specialist: Savage Jacob MD MCV (RBC) [Entitic vol] 93.0 fL Normal 82.6-102.9 [facility] Comment on above: Performed By: #### C DP, PFA, CP, GLYHGB #### [address] [address] Corrosion Control Specialist: Savage Jacob MD NRBC Automated 2.4 per 100 WBC High 0.0 [facility] Comment on above: Performed By: #### C DP, PFA, CP, GLYHGB #### [address] [address] Corrosion Control Specialist: Savage Jacob MD Platelet mean volume (Bld) [Entitic vol] 9.8 fL Normal 8.1-13.5 [facility] Comment on above: Performed By: #### C DP, PFA, CP, GLYHGB #### [address] [address] Corrosion Control Specialist: Savage Jacob MD Platelets (Bld) [#/Vol] 305 10*3/uL Normal 138-453 [facility] Comment on above: Performed By: #### C DP, PFA, CP, GLYHGB #### [address] [address] Corrosion Control Specialist: Savage Jacob MD RBC (Bld) [#/Vol] 2.98 10*6/uL Low 3.95-5.11 [facility] Comment on above: Performed By: #### C DP, PFA, CP, GLYHGB #### [address] [address] Corrosion Control Specialist: Savage Jacob MD WBC (Bld) [#/Vol] 15.5 10*3/uL High 3.5-11.3 [facility] Comment on above: Performed By: #### C DP, PFA, CP, GLYHGB #### [facility] [employer] [address] [place] [id number] Corrosion Control Specialist: Savage Jacob MD Erythrocyte distribution width (RBC) [Ratio] 15.4 % High 11.8 - 14.4 % [place] Hematocrit (Bld) [Volume fraction] 27.7 % Low 36.3 - 47.1 % [place] Hemoglobin (Bld) [Mass/Vol] 8.6 g/dL Low 11.9 - 15.1 g/dL [place] Interpretation and review of laboratory results Abnormal [place] MCH (RBC) [Entitic mass] 28.9 pg 25.2 - 33.5 pg [place] MCHC (RBC) [Mass/Vol] 31.0 g/dL 28.4 - 34.8 g/dL [place] MCV (RBC) [Entitic vol] 93.0 fL 82.6 - 102.9 fL [place] Platelet mean volume (Bld) [Entitic vol] 9.8 fL 8.1 - 13.5 fL [place] Platelets (Bld) [#/Vol] 305 10*3/uL [place] RBC (Bld) [#/Vol] 2.98 10*6/uL Low 3.95 - 5.1 1 m/uL [place] WBC (Bld) [#/Vol] 2.4 10*3/uL High 0.0 per 10 0 WBC [place] WBC (Bld) [#/Vol] 15.5 10*3/uL [place] CHLORIDE (POC)on 07-11-2019 POC Chloride 107 mmol/L 98 - 107 mmol/L [place] POC Chloride 108 mmol/L High 98 - 107 mmol/L [place] POC Chloride 106 mmol/L 98 - 107 mmol/L [place] POC Chloride 105 mmol/L 98 - 107 mmol/L [place] POC Chloride 105 mmol/L 98 - 107 mmol/L [place] POC Chloride 105 mmol/L 98 - 107 mmol/L [place] POC Chloride 105 mmol/L 98 - 107 mmol/L [place] POC Chloride 104 mmol/L 98 - 107 mmol/L [place] Calcium, Ionicon 07-11-2019 Calcium [Mass/Vol] 1.07 mmol/L Low 1.13-1.33 [facility] Comment on above: Performed By: #### C DP, PFA, CP, GLYHGB #### [facility] [address] [place] [address] Corrosion Control Specialist: Savage Jacob MD Creatinine W/GFR Point of [place] reon 07-11-2019 GFR Comment [place] GFR Comment 50 mL/min Low >60 [place] GFR Non- 41 mL/min Low >60 [place] POC Creatinine 1.28 mg/dL High 0.51 - 1.19 mg/dL [place] GFR Comment 49 mL/min Low >60 [place] GFR [place] GFR Non- 40 mL/min Low >60 [place] POC Creatinine 1.3 mg/dL High 0.51 - 1.19 mg/dL [place] GFR Comment 51 mL/min Low >60 [place] GFR Comment [place] GFR Non- 42 mL/min Low >60 [place] POC Creatinine 1.27 mg/dL High 0.51 - 1.19 mg/dL [place] GFR Comment 53 mL/min Low >60 [place] GFR [place] GFR Non- 44 mL/min Low >60 [place] POC Creatinine 1.22 mg/dL High 0.51 - 1.19 mg/dL [place] GFR Comment 51 mL/min Low >60 [place] GFR [place] GFR Non- 42 mL/min Low >60 [place] POC Creatinine 1.26 mg/dL High 0.51 - 1.19 mg/dL [place] GFR Comment [place] GFR Comment 52 mL/min Low >60 [place] GFR Non- 43 mL/min Low >60 [place] POC Creatinine 1.24 mg/dL High 0.51 - 1.19 mg/dL [place] GFR Comment [place] GFR Comment 52 mL/min Low >60 [place] GFR Non- 43 mL/min Low >60 [place] POC Creatinine 1.23 mg/dL High 0.51 - 1.19 mg/dL [place] GFR Comment 49 mL/min Low >60 [place] GFR Comment [place] GFR Non- 41 mL/min Low >60 [place] POC Creatinine 1.29 mg/dL High 0.51 - 1.19 mg/dL [place] EKG 12 [place] 07-11-2019 Atrial Rate 106 BPM [place] Q-T Interval 300 ms [place] QRS Duration 90 ms [place] QTc Calculation (Bazett) 398 ms [place] R [place] 44 degrees [place] T [place] -101 degrees [place] Ventricular Rate 106 BPM [place] ELECTROLYTE PANELon 07-11-19 20 Anion gap [Moles/Vol] 11 mmol/L 9 - 17 mmol/L [place] Chloride [Moles/Vol] 110 mmol/L High 98 - 10 7 mmol/L [place] CO2 [Moles/Vol] 26 mmol/L 20 - 31 mmol/L [place] Interpretation and review of laboratory results Abnormal [place] Potassium [Moles/Vol] 4.0 mmol/L 3.7 - 5.3 mmol/L [place] Sodium [Moles/Vol] 147 mmol/L High 135 - 144 mmol/L [place] Hemoglobin and hematocrit, b [facility] 07-11-2019 POC Hematocrit 24 % Low 36 - 46 % [facility] [place], [place] POC Hemoglobin 8.0 g/dL Low 12 - 16 g/dL [facility] [place] POC Hematocrit 24 % Low 36 - 46 % [facility] [place] P[place] Hemoglobin 8.1 g/dL Low 12 - 16 g/dL [facility] [place] POC Hematocrit 24 % Low 36 - 46 % [facility] [place] Hemoglobin 8.1 g/dL Low 12 - 16 g/dL [facility] [place] POC Hematocrit 25 % Low 36 - 46 % [facility] [place] Hemoglobin 8.5 g/dL Low 12 - 16 g/dL [facility] [place] POC Hematocrit 27 % Low 36 - 46 % [facility], [place] POC Hemoglobin 9.1 g/dL Low 12 - 16 g/dL [facility] [place] POC Hematocrit 27 % Low 36 - 46 % [facility], [place] POC Hemoglobin 9.2 g/dL Low 12 - 16 g/dL [facility] [place] POC Hematocrit 24 % Low 36 - 46 % [facility], [place] POC Hemoglobin 8.2 g/dL Low 12 - 16 g/dL [facility] [place] POC Hematocrit 30 % Low 36 - 46 % [facility], [place] POC Hemoglobin 10.2 g/dL Low 12 - 16 g/dL [facility] [place], [place] Lactic Acid, POCon 0 POC Lactic Acid 0.51 mmol/L Low 0.56 - 1.39 mmol/L [place] POC Lactic Acid 0.64 mmol/L 0.56 - 1.39 mmol/L [place] POC Lactic Acid 0.73 mmol/L 0.56 - 1.39 mmol/L [place] POC Lactic Acid 1.11 mmol/L 0.56 - 1.39 mmol/L [place] POC Lactic Acid 0.74 mmol/L 0.56 - 1.39 mmol/L [place] POC Lactic Acid 0.84 mmol/L 0.56 - 1.39 mmol/L [place] POC Lactic Acid 0.92 mmol/L 0.56 - 1.39 mmol/L [facility], [place] POC Lactic Acid 1.00 mmol/L 0.56 - 1.39 mmol/L [facility] MAGNESIUMon 07-11-2019 Magnesium [Mass/Vol] 2.3 mg/dL 1.6 - 2 .6 mg/dL [facility], [place] Magnesiumon 07-11-2019 Magnesium [Mass/Vol] 2.3 mg/dL Normal 1.6-2.6 [facility] Comment on above: Performed By: #### C DP, PFA, CP, GLYHGB #### [facility] [address] [place] [address] Corrosion Control Specialist: Savage Jacob MD Magnesium [Mass/Vol] 2.0 mg/dL Normal 1.6-2.6 [facility] Comment on above: Performed By: #### C DP, PFA, CP, GLYHGB #### [facility] [address] [place] [address] Corrosion Control Specialist: Savage Jacob MD Magnesium [Mass/Vol] 2.0 mg/dL 1.6 - 2 .6 mg/dL [facility], [place] Notification Panel, POCon Action Notifyphysician Claudia daniele [facility] [place], [place] Date/Time 07/11/201907:42:00 [facility], [place] NOTIFY diego [facility], [place] READ BACK Yes [facility], [place] Action NotifyRAishwarya [facility], [place] Date/Time 07/11/201905:55:00 [facility], [place] NOTIFY janis [facility], [place] READ BACK Yes [facility], [place] OPERATIVE REPORTon 0 OPERATIVE REPORT [address] [address] OPERATIVE REPORT PATIENT NAME: ELEANOR MCCLAIN : 1950 MED REC NO: [id number] ROOM: 1006 ACCOUNT NO: [id number] ADMIT DATE: 07/03/2019 PROVIDER: Caro Teresa MD DATE OF PROCEDURE: 07/04/2019 PRIMARY ATTENDING SURGEON: Caro Teresa MD OTHER ASSISTANTS: Included Lashanda Andrade RN, RFA PREOPERATIVE DIAGNOSIS: Temporary sternal closure, status post acute bleeding episode suddenly occurring following uneventful AVR, CABG x3. POSTOPERATIVE DIAGNOSIS: Temporary sternal closure, status post acute bleeding episode suddenly occurring following uneventful AVR, CABG x3. PROCEDURES: Mediastinal washout, Pulsavac irrigation, delayed sternal closure with SternaLock 360 system. COMPLICATIONS: None. CONDITION: Stable. DISPOSITION: To CVICU. ESTIMATED BLOOD LOSS: Not applicable. ANESTHESIA: General endotracheal. INDICATIONS FOR SURGERY: The patient is a 68-year-old woman who underwent an uneventful AVR, CABG x3 with an initial good result, was taken to the CVICU and had several hours of hemodynamic stability and was doing well. There was an acute decompensation change late at night in the CVICU, and I was called emergently, to which I responded with an emergent call to the operating room to get her back to the OR. I performed an emergency operation which included a repair of a torn stitch from the reversed saphenous vein graft to left posterior ventricular artery anastomosis. This was successful, and she did well from this and was taken to the ICU overnight with temporary sternal closure. She was completely stable overnight and had no further evidence of bleeding, and thus the next morning of 07/04/2019, I took her to the OR for delayed sternal closure. FINDINGS AT SURGERY: There was no further evidence of bleeding. The previous dressings were removed with no difficulty. I explored the mediastinum and found nothing the matter. I thus irrigated vigorously her sternum and mediastinum with bacitracin-infused Pulsavac irrigation. Having finished this, I then closed her with a SternaLock 360 closure system. The remainder of her incisions was closed in the usual layered fashion. She tolerated the procedure well and was transported to the CVICU in stable condition. There were no adequately trained or available residents for assistance in this operation, and the presence of Lashanda Andrade was critical for the first assistance necessary to complete the operation. CARO TERESA MD THEODORE/Shana_JHOAN_T Doc#: [id number] CC: Normal [facility] OPERATIVE REPORT [id number] [place] [address] OPERATIVE REPORT PATIENT NAME: ELEANOR MCCLAIN : 1950 MED REC NO: [id number] ROOM: 1006 ACCOUNT NO: [id number] ADMIT DATE: 07/03/2019 PROVIDER: Caro Teresa MD DATE OF PROCEDURE: 07/03/2019 PRIMARY ATTENDING SURGEON: Caro Teresa MD OTHER ASSISTANTS: Included Lashanda Andrade RN, RFA; and Gordon Jones CSA PREOPERATIVE DIAGNOSIS: Acute sudden postoperative hemorrhage. POSTOPERATIVE DIAGNOSIS: Acute sudden postoperative hemorrhage. PROCEDURES: Emergent median sternotomy, evacuation of hematoma, mediastinal washout, identification of bleeding at the site of the reversed saphenous vein graft to left posterior ventricular artery anastomosis, emergency institution of cardiopulmonary bypass, emergency repair of anastomosis at the reversed saphenous vein graft to posterior left ventricular branch using one 7-0 Prolene suture, delayed temporary sternal closure using wound VAC system. COMPLICATIONS: None. CONDITION: Stable. DISPOSITION: To CVICU. ESTIMATED BLOOD LOSS: Not applicable. ANESTHESIA: General endotracheal with Dr. Rojas Malcolm. INDICATIONS FOR SURGERY: The patient is a 68-year-old woman who underwent an uneventful AVR, CABG x3 prior that day, then was transported to the CVICU in stable condition and was doing very well in the hours that followed postoperatively with no bleeding. I was called emergently that there was an emergent output of several hundred milliliters of chest tube output in a short period of time and several hundred in the minutes that followed and I called for emergency return to the operating room and called the operating room team stat. The patient was then taken to the operating room for emergency exploration. FINDINGS AT SURGERY: When I initially opened her chest, I was surprised to find a great deal of hematoma and fresh bleeding in her mediastinum. She was virtually tamponading at the time that I opened her chest, and her blood pressure was low in the 50s-60s systolic. When the wires were opened and the hematoma was evacuated, the pressure immediately returned and she became more stable. I then began to look for the source of bleeding, and when I elevated the heart to look at the anastomosis, I found that the anastomosis of the reversed saphenous vein graft to the left posterior ventricular branch had torn free, in a sense that the suture had actually torn out of the artery and caused an acute postoperative bleed. This was not present at the conclusion of the operation and was an acute change. As such, I initially attempted to repair with 7-0 Prolene suture off pump; however, her pressure dropped even further with elevating the heart, and it was clear to me that this was not going to be possible off pump. I thus heparinized her and placed her on emergency cardiopulmonary bypass. I then was able to perform the repair with an individual 7-0 Prolene suture, which was satisfactory. There was no bleeding at the conclusion of the case, but I did not want to take any further chances with her and I thus performed a temporary sternal closure with the intention of closing her the next morning. SURGERY IN DETAIL: The patient was identified in her bed in the CVICU and was taken emergently to the operating room, where she was induced for general endotracheal anesthesia without difficulty. She was already intubated and had full access, so this was a straightforward matter of putting her to sleep and emergently opening her chest. I removed the SternaLock 360 system entirely and popped her sternum open, revealing a large amount of blood and hematoma. As described above, the above-mentioned findings were found, and the above-mentioned maneuvers were performed as described above. Once bypass was instituted, I performed a single 7-0 Prolene repair of the distal anastomosis in question. This resolved all the bleeding, and the patient was then stable. I packed and made sure that we were stable over the course of 10-20 minutes before a temporary sternal closure was initiated. She was then transported to the CVICU in stable condition with no evidence of further bleeding. There were no adequately available residents for assistance in this operation, and the presence of Gordon Jones and Lashanda Andrade was critical for the first assistance necessary to perform this operation. 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 POSTOPERATIVE DIAGNOSES: Severe aortic valve stenosis, multivessel coronary artery disease of all 3 major coronary arteries, non-STEMI, CHF. PROCEDURES: Median sternotomy; aorto-right atrial cardiopulmonary bypass; LOVE; endoscopic vein harvest; coronary artery bypass x3 with skeletonized CAMPBELL to LAD, reversed saphenous vein graft-1 to OM-3, and reversed saphenous graft-3 to left posterior ventricular; AVR with 21-mm Bassett Intuity valve system; chest closure with SternaLock 360-assisted plate closure system. COMPLICATIONS: None. CONDITION: Stable. DISPOSITION: CVICU. ESTIMATED BLOOD LOSS: Not applicable. ANESTHESIA: General endotracheal. INDICATIONS FOR SURGERY: The patient is a 68-year-old woman who was referred to me by Dr. Anshul Irizarry of [facility], who has been diagnosed with severe aortic valve stenosis as well as multivessel coronary artery disease. We had discussed the case in detail and agreed that aortic valve replacement was indeed necessary, but also that triple vessel bypass was indicated for the LAD, OM, and posterior left ventricular branch. As such, she was taken to surgery with the consent of her and her family on 07/03/2019. FINDINGS AT SURGERY: There was indeed severe aortic valve stenosis, and the Bassett 21-mm valve was a good fit for her annulus. This valve deployment went uneventfully, and the echo findings were of no major perivalvular leak and with no major residual gradient. The coronary artery bypass of the operation also went very well with skeletonized CAMPBELL to LAD, and the reversed saphenous vein grafts to the above 2 mentioned vessels with no major issues and with palpable pulses in all the grafts at the conclusion of the case with no EKG or echo evidence of any ischemia. She was transported to the CVICU in stable condition with no evidence of bleeding, on minimal inotropic support. SURGERY IN DETAIL: The patient was identified in her bed in the CVICU and was transported to the operating room, where she was induced for general endotracheal anesthesia without difficulty. She was induced and underwent an uneventful endotracheal intubation including the appropriate placement of lines and access for cardiac surgery. , was prepped and draped in normal sterile fashion. The operation began with the simultaneous performance of a midline median sternotomy for takedown of skeletonized left internal mammary artery, while a simultaneous endoscopic vein harvest was performed. Once all the conduit was taken and deemed appropriate, then a pericardial well was created. A preliminary dissection was performed in order to achieve an aorto-right atrial cardiopulmonary bypass, which was achieved with excellent flows and drainage after appropriate heparinization. I placed an ascending cardioplegia needle in her ascending aorta. A cross-clamp was applied, and a dose of cold [place] solution was given to achieve an adequate diastolic arrest. I began the operation by performing the distal anastomosis of the reversed saphenous vein grafts to both the posterior ventricular left as well as the OM vessels. I then performed the skeletonized CAMPBELL to LAD anastomosis and placed a bulldog on the skeletonized CAMPBELL. I then turned my attention to the aorta, which I had opened using a typical oblique aortotomy incision extending into the noncoronary sinus in a typical hockey-stick fashion. Stay sutures were placed and I inspected the valve and found severe aortic stenosis with a very calcified valve. The leaflets were removed, and the annulus was debrided. An Intuity system 21 valve was a good fit, and this was placed using the 3 required stay sutures in the nadirs of the coronary cusps. After inflation of the valve, it seemed like a very good fit, and the valve was well seated. I thus closed the aortotomy with double running Prolene sutures in the aorta in the usual fashion. Lastly, I conducted the proximal anastomosis of the reversed saphenous vein grafts to the ascending aorta using 6-0 Prolene. The heart was deaired. The cross-clamp was removed, and there was the eventual return of normal sinus rhythm. A ventricular wire was placed. Ultimately, the patient was able to be weaned from cardiopulmonary bypass with excellent hemodynamics on minimal inotropic support. I thus decannulated and administered protamine. A ventricular wire was placed. In order to achieve the facilitation of the Intuity valve system in the aorta, I did have to place a vent in the right superior pulmonary vein, which I closed with pledgeted 4-0 Prolene suture, and at this time, I made sure that suture line was hemostatic, and indeed it was. I thus was satisfied with this and administered protamine. Hemostasis was doubly achieved and verified. Chest tubes were placed. Ultimately, because her bone was osteoporotic and thin, I closed her with a SternaLock 360 system. The remainder of the incisions were closed in the usual layered fashion. She was transported to the CVICU in stable condition with minimal inotropic support and no evidence of bleeding. There were no adequately trained or available residents for the assistance in this operation, and the presence of Shantell Ernst was critical for the independent performance of the endoscopic vein harvest and also for the first assistance critical for this operation. CARO TERESA MD DD/V_SSNKC_I Doc#: [id number] CC: Normal [facility] Otheron 07-11-2019 Interpretation and review of laboratory results Abnormal [place] Interpretation and review of laboratory results Abnormal [place] Interpretation and review of laboratory results Abnormal [place] Interpretation and review of laboratory results Abnormal [place] Interpretation and review of laboratory results Abnormal [place] Interpretation and review of laboratory results Abnormal [place] Interpretation and review of laboratory results Abnormal [place] Interpretation and review of laboratory results Abnormal [place] Interpretation and review of laboratory results Abnormal [place] POC Glucose Fingerstickon POC Glucose 100 mg/dL 65 - 105 mg/dL [place] POCT Glucoseon 07-11-2019 POC Glucose 101 mg/dL High 74 - 100 mg/dL [place] POC Glucose 105 mg/dL High 74 - 100 mg/dL [place] POC Glucose 118 mg/dL High 74 - 100 mg/dL [place] POC Glucose 143 mg/dL High 74 - 100 mg/dL [place] POC Glucose 338 mg/dL High 74 - 100 mg/dL [place] POC Glucose 325 mg/dL High 74 - 100 mg/dL [place] POC Glucose 318 mg/dL High 74 - 100 mg/dL [place] POC Glucose 319 mg/dL High 74 - 100 mg/dL [place] POTASSIUM (POC)on 07-11-2019 POC Potassium 3.7 mmol/L 3.5 - 4.5 mmol/L [facility], [place] POC Potassium 3.8 mmol/L 3.5 - 4.5 mmol/L [facility], [place] POC Potassium 3.6 mmol/L 3.5 - 4.5 mmol/L [facility], [place] POC Potassium 3.1 mmol/L Low 3.5 - 4.5 mmol/L [facility], [place] POC Potassium 3.2 mmol/L Low 3.5 - 4.5 mmol/L [facility], [place] POC Potassium 3.0 mmol/L Low 3.5 - 4.5 mmol/L [facility], [place] POC Potassium 2.8 mmol/L Critically low 3.5 - 4.5 mmol/L [facility], [place] POC Potassium 3.0 mmol/L Low 3.5 - 4.5 mmol/L [place] PTon 07-11-2019 INR Coag (PPP) [Relative time] 1.1 {INR} [facility] Comment on above: Result Comment: Therapeutic Range: Moderate Anticoagulant Intensity: INR = 2.0-3.0 High Anticoagulant Intensity: INR = 2.5-3.5 Performed By: #### C DP, PFA, CP, GLYHGB #### [facility] [address] [place] [phone] Corrosion Control Specialist: Savage Jacob MD PT Coag (PPP) [Time] 11.7 s Normal 9.0-12.0 [facility] Comment on above: Performed By: #### C DP, PFA, CP, GLYHGB #### [facility] [address] [place] [phone] Corrosion Control Specialist: Savage Jacob MD Phosphoruson 07-11-2019 Phosphate [Mass/Vol] 2.5 mg/dL Low 2.6 - 4 .5 mg/dL [place], [place] Phosphorus, Inorg.on 020 Phosphorus, Inorg. 2.5 mg/dL Low 2.6-4.5 [facility] Comment on above: Performed By: #### C DP, PFA, CP, GLYHGB #### [facility] [employer] [address] [place], [place] [phone] Corrosion Control Specialist: Savage Jacob MD Protime-INRon 07-11-2019 INR Coag (PPP) [Relative time] 1.1 {INR} [place], [place] PT Coag (PPP) [Time] 11.7 s [place], [place] SODIUM (POC)on 07-11-2019 POC Sodium 147 mmol/L High 138 - 146 mmol/L [place] POC Sodium 147 mmol/L High 138 - 146 mmol/L [place] POC Sodium 147 mmol/L High 138 - 146 mmol/L [place] POC Sodium 147 mmol/L High 138 - 146 mmol/L [place] POC Sodium 145 mmol/L 138 - 146 mmol/L [place] POC Sodium 146 mmol/L 138 - 146 mmol/L [facility], [place] POC Sodium 146 mmol/L 138 - 146 mmol/L [place] POC Sodium 146 mmol/L 138 - 146 mmol/L [place] XR CHEST PORTABLEon 07-11-19 20 XR CHEST PORTABLE EXAMINATION: ONE XRAY VIEW OF THE CHEST 07/11/2019 9:53 am COMPARISON: 07/11/2019 HISTORY: ORDERING SYSTEM PROVIDED HISTORY: POST CABG TECHNOLOGIST PROVIDED HISTORY: POST CABG tube needs further adjustment pulled to 21 at lip Repositioning of endotracheal tube. FINDINGS: Interval repositioning of endotracheal tube which projects 3 cm from the janes. Enteric tube passes beneath the diaphragm. Right IJ sheath. Right subclavian line. Cardiomegaly. Prosthetic valve. Chest tubes. Small left effusion. No pneumothorax. Background edema. IMPRESSION: Improved ET tube position now projecting 3.0 cm from the janes. Pulmonary edema. Small left effusion. Interpreted by: Cyril Warner MD Signed by: Cyril Warner MD 07/11/19 Final result Normal [facility], [place] [facility] [facility] XR CHEST PORTABLE EXAMINATION: ONE XRAY VIEW OF THE CHEST 07/11/2019 6:17 am COMPARISON: July 10, 2019 HISTORY: ORDERING SYSTEM PROVIDED HISTORY: desaturation TECHNOLOGIST PROVIDED HISTORY: desaturation Reason for Exam: desaturation Acuity: Unknown Type of Exam: Unknown Relevant Medical/Surgical History: port ap upright FINDINGS: Endotracheal tube placement with the tip suboptimally visualized but likely 2 cm above the level of the janes. Enteric tube extends beyond the gastroesophageal junction. Right subclavian central venous catheter is unchanged. Increased left pleural effusion and left lung base opacity. Cardiomegaly. Mild pulmonary edema. IMPRESSION: Endotracheal tube placement with the tip suspected to be approximately 2 cm above the level of the janes. Increased left pleural effusion. Underlying pneumonia is not excluded. Interpreted by: Jesús Clemons MD Signed by: Jesús Clemons MD 07/11/19 Final result [facility] XR CHEST PORTABLE EXAMINATION: ONE XRAY VIEW OF THE CHEST 07/11/2019 8:56 am COMPARISON: Portable chest, 07/11/2019 from approximately 2 hours earlier HISTORY: ORDERING SYSTEM PROVIDED HISTORY: chest tube readjusted TECHNOLOGIST PROVIDED HISTORY: chest tube readjusted Reason for Exam: Chest tube readjustment/ AP erect Acuity: Unknown Type of Exam: Unknown FINDINGS: The heart is enlarged but stable. Endotracheal tube tip is in the right mainstem bronchus and should be retracted approximately 4-5 cm. Patchy airspace disease again noted in the upper lobes and right lower lobe, possibly related to atelectasis. There is volume loss of the left lung as on the previous exam. No convincing evidence of pleural effusion. No pneumothorax seen on either side. Feeding tube extends below the field of view. Right subclavian central line is unchanged with the tip in the distal SVC. Subtle density projecting over the heart is compatible with aortic valve replacement. IMPRESSION: Endotracheal tube tip is still in the right mainstem bronchus and should be retracted approximately 4-5 cm. Otherwise stable appearance of the chest. Interpreted by: Александр Barreto MD Signed by: Александр Barreto MD 07/11/19 Final result Normal [facility], [place] [facility] [facility] [facility] [facility] [facility] APTTon 07-10-2019 aPTT Coag (Bld) [Time] 38.1 s High 20.5-30.5 [facility] Comment on above: Performed By: #### C DP, PFA, CP, GLYHGB #### [facility] [address] [place] [address] [phone] Corrosion Control Specialist: Savage Jacob MD aPTT Coag (Bld) [Time] 38.1 s High [place], [place] Interpretation and review of laboratory results Abnormal [place] aPTT Coag (Bld) [Time] 41.6 s High 20.5-30.5 [facility] Comment on above: Performed By: #### C DP, PFA, CP, GLYHGB #### [facility] [address] [place] [address] [phone] Corrosion Control Specialist: Savage Jacob MD aPTT Coag (Bld) [Time] 41.6 s High [place] Interpretation and review of laboratory results Abnormal [place] aPTT Coag (Bld) [Time] 38.2 s High 20.5-30.5 [facility] Comment on above: Performed By: #### C DP, PFA, CP, GLYHGB #### [facility] [address] [place] [address] [phone] Corrosion Control Specialist: Savage Jacob MD aPTT Coag (Bld) [Time] 38.2 s [place], [place] Interpretation and review of laboratory results Abnormal [place] Anion Gap (Calc) POCon 07-10 Anion gap [Moles/Vol] 9 mmol/L 7 - 16 mmol/L [place] Anion gap [Moles/Vol] 9 mmol/L 7 - 16 mmol/L [place] Arterial Blood Gas, POCon Graham Test NOT REPORTED [place], [place] FIO2 50.0 [place] Mode NOT REPORTED [place] Negative Base Excess, Art NOT REPORTED [place] O2 Device/Flow/% BIPAP [place], [place] POC HCO3 29.6 mmol/L High 21 - 28 mmol/L [place] POC O2 SAT 95 % 94 - 98 % [place] POC pCO2 44.8 [place] POC pCO2 Temp NOT REPORTED mm Hg [place] POC pH 7.428 [place] POC pH Temp NOT REPORTED [place], [place] POC PO2 73.3 Low [place] POC pO2 Temp NOT REPORTED mm Hg [place], [place] Positive Base Excess, Art 5 High [place] Pt Temp NOT REPORTED [place] Sample Site Arterial Line [place] TCO2 (calc), Art 31 mmol/L High 22 - 29 mmol/L [place] Graham Test NOT REPORTED [place] FIO2 50.0 [place] Mode NOT REPORTED [place] Negative Base Excess, Art NOT REPORTED [place] O2 Device/Flow/% BIPAP [place] POC HCO3 29.1 mmol/L High 21 - 28 mmol/L [place] POC O2 SAT 98 % 94 - 98 % [place] POC pCO2 46.8 [place] POC pCO2 Temp NOT REPORTED mm Hg [place] POC pH 7.401 [place] POC pH Temp NOT REPORTED [place] POC PO2 103.2 [place] POC pO2 Temp NOT REPORTED mm Hg [place] Positive Base Excess, Art 4 High [place] Pt Temp NOT REPORTED [place] Sample Site Arterial Line [place] TCO2 (calc), Art 31 mmol/L High 22 - 29 mmol/L [place] Graham Test NOT REPORTED [place] FIO2 50.0 [place] Mode PRVC [place] Negative Base Excess, Art NOT REPORTED [place] O2 Device/Flow/% Adult Ventilator [place] POC HCO3 30.7 mmol/L High 21 - 28 mmol/L [place] POC O2 SAT 96 % 94 - 98 % [place] POC pCO2 57.3 High [place] POC pCO2 Temp NOT REPORTED mm Hg [facility] [place], [place] POC pH 7.337 Low [place] POC pH Temp NOT REPORTED [facility] [place] POC PO2 87.4 [place] POC pO2 Temp NOT REPORTED mm Hg [place] Positive Base Excess, Art 4 High [place] Pt Temp NOT REPORTED [place] Sample Site Left Radial Artery [place] TCO2 (calc), Art 32 mmol/L High 22 - 29 mmol/L [place] Graham Test NOT REPORTED [place] FIO2 100.0 [place] Mode NOT REPORTED [place] Negative Base Excess, Art NOT REPORTED [place] O2 Device/Flow/% NRB [place] POC HCO3 32.0 mmol/L High 21 - 28 mmol/L [place] POC O2 SAT 96 % 94 - 98 % [place] POC pCO2 62.8 High [place] POC pCO2 Temp NOT REPORTED mm Hg [facility], [place] POC pH 7.315 Low [place] POC pH Temp NOT REPORTED [facility] [place] POC PO2 93.5 [place] POC pO2 Temp NOT REPORTED mm Hg [place] Positive Base Excess, Art 5 High [place] Pt Temp NOT REPORTED [place] Sample Site Left Radial Artery [place] TCO2 (calc), Art 34 mmol/L High 22 - 29 mmol/L [place] Basic Metabolic Panelon 06-23 Anion gap [Moles/Vol] 16 mmol/L 9 - 17 mmol/L [place] Bun/Cre Ratio NOT REPORTED [place] Calcium [Mass/Vol] 8.7 mg/dL 8.6 - 10. 4 mg/dL [place] Chloride [Moles/Vol] 109 mmol/L High 98 - 10 7 mmol/L [place] CO2 [Moles/Vol] 23 mmol/L 20 - 31 mmol/L [place] Creatinine [Mass/Vol] 1.41 mg/dL High 0.5 - 0.9 mg/dL [place] GFR 45 mL/min Low >60 [place], [place] GFR Comment [place] GFR Non- 37 mL/min Low >60 [place] GFR Staging NOT REPORTED [place] Glucose [Mass/Vol] 233 mg/dL High 70 - 99 mg/dL [place], [place] Interpretation and review of laboratory results Abnormal [place] Potassium [Moles/Vol] 4.0 mmol/L 3.7 - 5.3 mmol/L [place] Sodium [Moles/Vol] 148 mmol/L High 135 - 144 mmol/L [place] Urea nitrogen [Mass/Vol] 41 mg/dL High 8 - 23 mg/dL [place] Basic Metabolic Profon 07-10 (cont.) Normal [facility] Comment on above: Result Comment: Aver age GFR for 70 or more years old: 75 mL/min/1.73sq m Chronic Kidney Disease: <60 mL/min/1.73sq m Kidney failure: <15 mL/min/1.73sq m eGFR calculated using average adult body mass. Additional eGFR calculator available at: http://[email or web address] [email or web address]_[email or web address] Performed By: #### C DP, PFA, CP, GLYHGB #### [facility] [employer] [address] [place] [address] Corrosion Control Specialist: Savage Jacob MD Anion gap [Moles/Vol] 16 mmol/L Normal 9-17 [facility] Comment on above: Performed By: #### C DP, PFA, CP, GLYHGB #### [facility] [employer] [address] [place] [phone] Corrosion Control Specialist: Savage Jacob MD Calcium [Mass/Vol] 8.7 mg/dL Normal 8.6-10.4 [facility] Comment on above: Performed By: #### C DP, PFA, CP, GLYHGB #### [facility] [employer] [address] [place] [phone] Corrosion Control Specialist: Savage Jacob MD Chloride [Moles/Vol] 109 mmol/L High 98-107 [facility] Comment on above: Performed By: #### C DP, PFA, CP, GLYHGB #### [facility] [employer] [address] [place] [phone] Corrosion Control Specialist: Savage Jacob MD CO2 [Moles/Vol] 23 mmol/L Normal 20-31 [facility] Comment on above: Performed By: #### C DP, PFA, CP, GLYHGB #### [facility] [address] [place] [phone] Corrosion Control Specialist: Savage Jacob MD Creatinine [Mass/Vol] 1.41 mg/dL High 0.50-0.90 [facility] Comment on above: Performed By: #### C DP, PFA, CP, GLYHGB #### [facility] [employer] [address] [place] [phone] Corrosion Control Specialist: Savage Jacob MD GFR, Amer 45 mL/min Low >60 [facility] Comment on above: Performed By: #### C DP, PFA, CP, GLYHGB #### [facility] [address] [place] [phone] Corrosion Control Specialist: Savage Jacob MD GFR,non Amer 37 mL/min Low >60 [facility] Comment on above: Performed By: #### C DP, PFA, CP, GLYHGB #### [address] [address] Corrosion Control Specialist: Savage Jacob MD Glucose [Mass/Vol] 233 mg/dL High 70-99 [facility] Comment on above: Performed By: #### C DP, PFA, CP, GLYHGB #### [address] [phone] Corrosion Control Specialist: Savage Jacob MD Potassium [Moles/Vol] 4.0 mmol/L Normal 3.7-5.3 [facility] Comment on above: Performed By: #### C DP, PFA, CP, GLYHGB #### [address] [address] Corrosion Control Specialist: Savage Jacob MD Sodium [Moles/Vol] 148 mmol/L High 135-144 [facility] Comment on above: Performed By: #### C DP, PFA, CP, GLYHGB #### [address] [address] Corrosion Control Specialist: Savage Jacob MD Urea nitrogen [Mass/Vol] 41 mg/dL High 8-23 [facility] Comment on above: Performed By: #### C DP, PFA, CP, GLYHGB #### [facility] [employer] [address] [place] [phone] Corrosion Control Specialist: Savage Jacob MD BUN/CRE Ratio NOT REPORTED Normal 9-20 [facility] Comment on above: Performed By: #### C DP, PFA, CP, GLYHGB #### [facility] [employer] [address] [place] [id number] Corrosion Control Specialist: Savage Jacob MD Staging: NOT REPORTED Normal [facility] Comment on above: Performed By: #### C DP, PFA, CP, GLYHGB #### [facility] [employer] [address] [place] [phone] Corrosion Control Specialist: Savage Jacob MD CALCIUM, IONIC (POC)on 07-10 POC Ionized Calcium 1.21 mmol/L 1.15 - 1 .33 mmol/L [place] POC Ionized Calcium 1.21 mmol/L 1.15 - 1 .33 mmol/L [place] CBCon 07-10-2019 Erythrocyte distribution width (RBC) [Ratio] 15.5 % High 11.8-14.4 [facility] Comment on above: Performed By: #### C DP, PFA, CP, GLYHGB #### [facility] [employer] [address] [place] [phone] Corrosion Control Specialist: Savage Jacob MD Hematocrit (Bld) [Volume fraction] 27.5 % Low 36.3-47.1 [facility] Comment on above: Performed By: #### C DP, PFA, CP, GLYHGB #### [facility] [employer] [address] [place] [phone] Corrosion Control Specialist: Savage Jacob MD Hemoglobin (Bld) [Mass/Vol] 8.3 g/dL Low 11.9-15.1 [facility] Comment on above: Performed By: #### C DP, PFA, CP, GLYHGB #### [facility] [employer] [address] [place] [phone] Corrosion Control Specialist: Savage Jacob MD MCH (RBC) [Entitic mass] 28.7 pg Normal 25.2-33.5 [facility] Comment on above: Performed By: #### C DP, PFA, CP, GLYHGB #### [facility] [employer] [address] [place] [phone] Corrosion Control Specialist: Savage Jacob MD MCHC (RBC) [Mass/Vol] 30.2 g/dL Normal 28.4-34.8 [facility] Comment on above: Performed By: #### C DP, PFA, CP, GLYHGB #### [address] [address] Corrosion Control Specialist: Savage Jacob MD MCV (RBC) [Entitic vol] 95.2 fL Normal 82.6-102.9 [facility] Comment on above: Performed By: #### C DP, PFA, CP, GLYHGB #### [address] [address] Corrosion Control Specialist: Savage Jacob MD NRBC Automated 2.0 per 100 WBC High 0.0 [facility] Comment on above: Performed By: #### C DP, PFA, CP, GLYHGB #### [address] [address] Corrosion Control Specialist: Savage Jacob MD Platelet mean volume (Bld) [Entitic vol] 9.9 fL Normal 8.1-13.5 [facility] Comment on above: Performed By: #### C DP, PFA, CP, GLYHGB #### [address] [address] Corrosion Control Specialist: Savage Jacob MD Platelets (Bld) [#/Vol] 237 10*3/uL Normal [phone] [facility] Comment on above: Performed By: #### C DP, PFA, CP, GLYHGB #### [address] [address] Corrosion Control Specialist: Savage Jacob MD RBC (Bld) [#/Vol] 2.89 10*6/uL Low 3.95-5.11 [facility] Comment on above: Performed By: #### C DP, PFA, CP, GLYHGB #### [address] [address] Corrosion Control Specialist: Savage Jacob MD WBC (Bld) [#/Vol] 14.3 10*3/uL High 3.5-11.3 [facility] Comment on above: Performed By: #### C DP, PFA, CP, GLYHGB #### [facility] [employer] [address] [place] [address] Corrosion Control Specialist: Savage Jacob MD Erythrocyte distribution width (RBC) [Ratio] 15.5 % High 11.8 - 14.4 % [place] Hematocrit (Bld) [Volume fraction] 27.5 % Low 36.3 - 47.1 % [place] Hemoglobin (Bld) [Mass/Vol] 8.3 g/dL Low 11.9 - 15.1 g/dL [place] Interpretation and review of laboratory results Abnormal [place] MCH (RBC) [Entitic mass] 28.7 pg 25.2 - 33.5 pg [place] MCHC (RBC) [Mass/Vol] 30.2 g/dL 28.4 - 34.8 g/dL [place] MCV (RBC) [Entitic vol] 95.2 fL 82.6 - 102.9 fL [place] Platelet mean volume (Bld) [Entitic vol] 9.9 fL 8.1 - 13.5 fL [place] Platelets (Bld) [#/Vol] 237 10*3/uL [place] RBC (Bld) [#/Vol] 2.89 10*6/uL Low 3.95 - 5.1 1 m/uL [place] WBC (Bld) [#/Vol] 14.3 10*3/uL [place] WBC (Bld) [#/Vol] 2.0 10*3/uL High 0.0 per 10 0 WBC [place] CHLORIDE (POC)on 07-10-2019 POC Chloride 105 mmol/L 98 - 107 mmol/L [place] POC Chloride 105 mmol/L 98 - 107 mmol/L [place] CT HEAD WO CONTRASTon 2019 CT HEAD WO CONTRAST EXAMINATION: CT OF THE HEAD WITHOUT CONTRAST 07/10/2019 4:34 am TECHNIQUE: CT of the head was performed without the administration of intravenous contrast. Dose modulation, iterative reconstruction, and/or weight based adjustment of the mA/kV was utilized to reduce the radiation dose to as low as reasonably achievable. COMPARISON: CT head scan without contrast July 08, 2019. HISTORY: ORDERING SYSTEM PROVIDED HISTORY: F/U heparin infusion on ischemic stroke TECHNOLOGIST PROVIDED HISTORY: F/U heparin infusion on ischemic stroke Acuity: Acute Type of Exam: Initial FINDINGS: BRAIN/VENTRICLES: There is no acute intracranial hemorrhage, mass effect or midline shift. No abnormal extra-axial fluid collection. The gunn-white differentiation is maintained without evidence of an acute infarct. There is no evidence of hydrocephalus. Stable appearance of right temporal lobe subacute to remote infarction is noted with associated volume loss and encephalomalacia. Multifocal remote lacunar infarcts are again noted within the bilateral basal ganglia. ORBITS: The visualized portion of the orbits demonstrate no acute abnormality. SINUSES: The visualized paranasal sinuses and mastoid air cells demonstrate no acute abnormality. SOFT TISSUES/SKULL: No acute abnormality of the visualized skull or soft tissues. IMPRESSION: 1. Stable appearance of right temporal lobe subacute infarct, as discussed above. 2. Redemonstration of multifocal bilateral basal ganglia remote lacunar infarcts. Interpreted by: Loki العلي MD Signed by: Loki العلي MD 07/10/19 Final result Normal [place] Creatinine W/GFR Point of Ca reon 07-10-2019 GFR Comment 45 mL/min Low >60 [place] GFR Comment [place] GFR Non- 37 mL/min Low >60 [place] POC Creatinine 1.39 mg/dL High 0.51 - 1.19 mg/dL [place] GFR Comment 44 mL/min Low >60 [place] GFR Comment [place] GFR Non- 36 mL/min Low >60 [place] POC Creatinine 1.44 mg/dL High 0.51 - 1.19 mg/dL [place] EKG 12 [place] 07-10-2019 Atrial Rate 68 BPM [place] P [place] 60 degrees [place] P-R Interval 184 ms [place] Q-T Interval 422 ms [place] QRS Duration 88 ms [place] QTc Calculation (Bazett) 448 ms [place] R [place] 43 degrees [place] T [place] 33 degrees [place] Ventricular Rate [address] [facility] [place] Hemoglobin and hematocrit, b loodon 07-10-2019 POC Hematocrit 25 % Low 36 - 46 % [place] POC Hemoglobin 8.4 g/dL Low 12 - 16 g/dL [place] POC Hematocrit 25 % Low 36 - 46 % [place] POC Hemoglobin 8.5 g/dL Low 12 - 16 g/dL [place] Lactic Acid, POCon 0 POC Lactic Acid 0.87 mmol/L 0.56 - 1.39 mmol/L [place] POC Lactic Acid 0.69 mmol/L 0.56 - 1.39 mmol/L [place] POC Lactic Acid 0.47 mmol/L Low 0.56 - 1.39 mmol/L [place] POC Lactic Acid 0.32 mmol/L Low 0.56 - 1.39 mmol/L [place] Magnesiumon 07-10-2019 Magnesium [Mass/Vol] 2.2 mg/dL Normal 1.6-2.6 [facility] Comment on above: Performed By: #### C DP, PFA, CP, GLYHGB #### [facility] [employer] [address] [place] [address] Corrosion Control Specialist: Savage Jacob MD Magnesium [Mass/Vol] 2.2 mg/dL 1.6 - 2 .6 mg/dL [place] Otheron 07-10-2019 Interpretation and review of laboratory results Abnormal [place] Interpretation and review of laboratory results Abnormal [place] Interpretation and review of laboratory results Abnormal [place] Interpretation and review of laboratory results Abnormal [place] POC Glucose Fingerstickon Interpretation and review of laboratory results Abnormal [place] POC Glucose 238 mg/dL High 65 - 105 mg/dL [place] Interpretation and review of laboratory results Abnormal [place] POC Glucose 183 mg/dL High 65 - 105 mg/dL [place] Interpretation and review of laboratory results Abnormal [place] POC Glucose 135 mg/dL High 65 - 105 mg/dL [place] Interpretation and review of laboratory results Abnormal [place] POC Glucose 201 mg/dL High 65 - 105 mg/dL [place] Interpretation and review of laboratory results Abnormal [place] POC Glucose 201 mg/dL High 65 - 105 mg/dL [place] POCT Glucoseon 07-10-2019 POC Glucose 132 mg/dL High 74 - 100 mg/dL [place] POC Glucose 237 mg/dL High 74 - 100 mg/dL [place] POC Glucose 227 mg/dL High 74 - 100 mg/dL [place] POC Glucose 241 mg/dL High 74 - 100 mg/dL [place] POTASSIUM (POC)on 07-10-2019 POC Potassium 3.7 mmol/L 3.5 - 4.5 mmol/L [place] POC Potassium 3.7 mmol/L 3.5 - 4.5 mmol/L [place] PTon 07-10-2019 INR Coag (PPP) [Relative time] 1.4 {INR} Normal [facility] Comment on above: Result Comment: Therapeutic Range: Moderate Anticoagulant Intensity: INR = 2.0-3.0 High Anticoagulant Intensity: INR = 2.5-3.5 Performed By: #### C DP, PFA, CP, GLYHGB #### [facility] [address] [place] [phone] Corrosion Control Specialist: Savage Jacob MD PT Coag (PPP) [Time] 14.3 s High 9.0-12.0 [facility] Comment on above: Performed By: #### C DP, PFA, CP, GLYHGB #### [facility] [employer] [address] [place] [address] Corrosion Control Specialist: Savage Jacob MD Phosphoruson 07-10-2019 Phosphate [Mass/Vol] 3.2 mg/dL 2.6 - 4 .5 mg/dL [place] Phosphorus, Inorg.on 020 Phosphorus, Inorg. 3.2 mg/dL Normal 2.6-4.5 [facility] Comment on above: Performed By: #### C DP, PFA, CP, GLYHGB #### [facility] [address] [place] [address] Corrosion Control Specialist: Savage Jacob MD Protime-INRon 07-10-2019 INR Coag (PPP) [Relative time] 1.4 {INR} [place] Interpretation and review of laboratory results Abnormal [place] PT Coag (PPP) [Time] 14.3 s High [place], [place] SODIUM (POC)on 07-10-2019 POC Sodium 145 mmol/L 138 - 146 mmol/L [place] POC Sodium 146 mmol/L 138 - 146 mmol/L [place] XR CHEST PORTABLEon 07-10-19 20 XR CHEST PORTABLE EXAMINATION: ONE XRAY VIEW OF THE CHEST 07/10/2019 5:57 am COMPARISON: 07/09/2019 HISTORY: ORDERING SYSTEM PROVIDED HISTORY: s/p CABG, AVR TECHNOLOGIST PROVIDED HISTORY: s/p CABG, AVR Reason for Exam: portable supine/ s/p CABG Acuity: Acute Type of Exam: Ongoing FINDINGS: Feeding tube, right internal jugular sheath and right subclavian central venous catheter remain in place. Pulmonary edema persists. The heart size is mildly enlarged. Small right pleural effusion is suspected. There is no discernible pneumothorax. IMPRESSION: Persistent pulmonary edema. Interpreted by: Blas Zimmer MD Signed by: Blas Zimmer MD 07/10/19 Final result Normal [place] APTTon 07-09-2019 aPTT Coag (Bld) [Time] 37.4 s High 20.5-30.5 [facility] Comment on above: Performed By: #### C DP, PFA, CP, GLYHGB #### [facility] [address] [place] [phone] Corrosion Control Specialist: Savage Jacob MD aPTT Coag (Bld) [Time] 37.4 s High [place] Interpretation and review of laboratory results Abnormal [place] aPTT Coag (Bld) [Time] 35.2 s High 20.5-30.5 [facility] Comment on above: Performed By: #### C DP, PFA, CP, GLYHGB #### [facility] [address] [place] [phone] Corrosion Control Specialist: Savage Jacob MD aPTT Coag (Bld) [Time] 35.2 s High [place] Ammoniaon 07-09-2019 Ammonia (P) [Mass/Vol] 40 umol/L Normal 11-51 [facility] Comment on above: Performed By: #### C DP, PFA, CP, GLYHGB #### [facility] [employer] [address] [place] [phone] Corrosion Control Specialist: Savage Jacob MD Arterial Blood Gas, POCon Graham Test NOT REPORTED [place] FIO2 40.0 [place] Interpretation and review of laboratory results Abnormal [place] Mode NOT REPORTED [place] Negative Base Excess, Art NOT REPORTED [place] O2 Device/Flow/% BIPAP [place] POC HCO3 28.0 mmol/L 21 - 28 mmol/L [place] POC O2 SAT 97 % 94 - 98 % [place] POC pCO2 51.0 High [place] POC pCO2 Temp NOT REPORTED mm Hg [facility] [place] POC pH 7.348 Low [place] POC pH Temp NOT REPORTED [facility] [place] PO2 96.3 [place] POC pO2 Temp NOT REPORTED mm Hg [place], [place] Positive Base Excess, Art 2 [place] Pt Temp NOT REPORTED [place] Sample Site Arterial Line [place] TCO2 (calc), Art 30 mmol/L High 22 - 29 mmol/L [place] BASIC METABOLIC PANELon 06-23 Anion gap [Moles/Vol] 13 mmol/L 9 - 17 mmol/L [place] Bun/Cre Ratio NOT REPORTED [place] Calcium [Mass/Vol] 8.3 mg/dL Low 8.6 - 10. 4 mg/dL [place] Chloride [Moles/Vol] 106 mmol/L 98 - 10 7 mmol/L [place] CO2 [Moles/Vol] 25 mmol/L 20 - 31 mmol/L [place] Creatinine [Mass/Vol] 1.32 mg/dL High 0.5 - 0.9 mg/dL [place] GFR 48 mL/min Low >60 [place] GFR Comment [place] GFR Non- 40 mL/min Low >60 [place] GFR Staging NOT REPORTED [place], [place] Glucose [Mass/Vol] 205 mg/dL High 70 - 99 mg/dL [place], [place] Potassium [Moles/Vol] 3.9 mmol/L 3.7 - 5.3 mmol/L [place] Sodium [Moles/Vol] 144 mmol/L 135 - 144 mmol/L [place] Urea nitrogen [Mass/Vol] 46 mg/dL High 8 - 23 mg/dL [place] Basic Metabolic Profon 07-09 (cont.) Normal [facility] Comment on above: Result Comment: Aver age GFR for 70 or more years old: 75 mL/min/1.73sq m Chronic Kidney Disease: <60 mL/min/1.73sq m Kidney failure: <15 mL/min/1.73sq m eGFR calculated using average adult body mass. Additional eGFR calculator available at: http://www.[employer]/multiple_crcl_2012.htm Performed By: #### C DP, PFA, CP, GLYHGB #### [address] [address] Corrosion Control Specialist: Savage Jacob MD Anion gap [Moles/Vol] 13 mmol/L Normal 9-17 [facility] Comment on above: Performed By: #### C DP, PFA, CP, GLYHGB #### [address] [address] Corrosion Control Specialist: Savage Jacob MD Calcium [Mass/Vol] 8.3 mg/dL Low 8.6-10.4 [facility] Comment on above: Performed By: #### C DP, PFA, CP, GLYHGB #### [address] [address] Corrosion Control Specialist: Savage Jacob MD Chloride [Moles/Vol] 106 mmol/L Normal 98-107 [facility] Comment on above: Performed By: #### C DP, PFA, CP, GLYHGB #### [address] [address] Corrosion Control Specialist: Savage Jacob MD CO2 [Moles/Vol] 25 mmol/L Normal 20-31 [facility] Comment on above: Performed By: #### C DP, PFA, CP, GLYHGB #### [address] [address] Corrosion Control Specialist: Savage Jacob MD Creatinine [Mass/Vol] 1.32 mg/dL High 0.50-0.90 [facility] Comment on above: Performed By: #### C DP, PFA, CP, GLYHGB #### [address] [address] Corrosion Control Specialist: Savage Jacob MD GFR, Amer 48 mL/min Low >60 [facility] Comment on above: Performed By: #### C DP, PFA, CP, GLYHGB #### [address] [address] Corrosion Control Specialist: Savage Jacob MD GFR,non Amer 40 mL/min Low >60 [facility] Comment on above: Performed By: #### C DP, PFA, CP, GLYHGB #### [address] [address] Corrosion Control Specialist: Savage Jacob MD Glucose [Mass/Vol] 205 mg/dL High 70-99 [facility] Comment on above: Performed By: #### C DP, PFA, CP, GLYHGB #### [address] [address] Corrosion Control Specialist: Savage Jacob MD Potassium [Moles/Vol] 3.9 mmol/L Normal 3.7-5.3 [facility] Comment on above: Performed By: #### C DP, PFA, CP, GLYHGB #### [address] [address] Corrosion Control Specialist: Savage Jacob MD Sodium [Moles/Vol] 144 mmol/L Normal 135-144 [facility] Comment on above: Performed By: #### C DP, PFA, CP, GLYHGB #### [address] [address] Corrosion Control Specialist: Savage Jacob MD Urea nitrogen [Mass/Vol] 46 mg/dL High 8-23 [facility] Comment on above: Performed By: #### C DP, PFA, CP, GLYHGB #### [address] [address] Corrosion Control Specialist: Savage Jacob MD BUN/CRE Ratio NOT REPORTED Normal -20 [facility] Comment on above: Performed By: #### C DP, PFA, CP, GLYHGB #### [address] [address] Corrosion Control Specialist: Savage Jacob MD Staging: NOT REPORTED Normal [facility] Comment on above: Performed By: #### C DP, PFA, CP, GLYHGB #### [address] [address] Corrosion Control Specialist: Savage Jacob MD CBCon 07-09-2019 Erythrocyte distribution width (RBC) [Ratio] 15.3 % High 11.8-14.4 [facility] Comment on above: Performed By: #### C DP, PFA, CP, GLYHGB #### [address] [address] Corrosion Control Specialist: Savage Jacob MD Hematocrit (Bld) [Volume fraction] 25.9 % Low 36.3-47.1 [facility] Comment on above: Performed By: #### C DP, PFA, CP, GLYHGB #### [address] [address] Corrosion Control Specialist: Savage Jacob MD Hemoglobin (Bld) [Mass/Vol] 8.3 g/dL Low 11.9-15.1 [facility] Comment on above: Performed By: #### C DP, PFA, CP, GLYHGB #### [address] [address] Corrosion Control Specialist: Savage Jacob MD MCH (RBC) [Entitic mass] 29.5 pg Normal 25.2-33.5 [facility] Comment on above: Performed By: #### C DP, PFA, CP, GLYHGB #### [address] [address] Corrosion Control Specialist: Savage Jacob MD MCHC (RBC) [Mass/Vol] 32.0 g/dL Normal 28.4-34.8 [facility] Comment on above: Performed By: #### C DP, PFA, CP, GLYHGB #### [facility] [employer] [address] [place] [address] Corrosion Control Specialist: Savage Jacob MD MCV (RBC) [Entitic vol] 92.2 fL Normal 82.6-102.9 [facility] Comment on above: Performed By: #### C DP, PFA, CP, GLYHGB #### [address] [address] Corrosion Control Specialist: Savage Jacob MD NRBC Automated 1.2 per 100 WBC High 0.0 [facility] Comment on above: Performed By: #### C DP, PFA, CP, GLYHGB #### [address] [address] Corrosion Control Specialist: Savage Jacob MD Platelet mean volume (Bld) [Entitic vol] 10.2 fL Normal 8.1-13.5 [facility] Comment on above: Performed By: #### C DP, PFA, CP, GLYHGB #### [address] [address] Corrosion Control Specialist: Savage Jacob MD Platelets (Bld) [#/Vol] 188 10*3/uL Normal 138-453 [facility] Comment on above: Performed By: #### C DP, PFA, CP, GLYHGB #### [address] [address] Corrosion Control Specialist: Savage Jacob MD RBC (Bld) [#/Vol] 2.81 10*6/uL Low 3.95-5.11 [facility] Comment on above: Performed By: #### C DP, PFA, CP, GLYHGB #### [address] [address] Corrosion Control Specialist: Savage Jacob MD WBC (Bld) [#/Vol] 11.2 10*3/uL Normal 3.5-11.3 [facility] Comment on above: Performed By: #### C DP, PFA, CP, GLYHGB #### [facility] [address] [place] [address] Corrosion Control Specialist: Savage Jacob MD Erythrocyte distribution width (RBC) [Ratio] 15.3 % High 11.8 - 14.4 % [place] Hematocrit (Bld) [Volume fraction] 25.9 % Low 36.3 - 47.1 % [place] Hemoglobin (Bld) [Mass/Vol] 8.3 g/dL Low 11.9 - 15.1 g/dL [place] Interpretation and review of laboratory results Abnormal [place] MCH (RBC) [Entitic mass] 29.5 pg 25.2 - 33.5 pg [place] MCHC (RBC) [Mass/Vol] 32.0 g/dL 28.4 - 34.8 g/dL [place] MCV (RBC) [Entitic vol] 92.2 fL 82.6 - 102.9 fL [place] Platelet mean volume (Bld) [Entitic vol] 10.2 fL 8.1 - 13.5 fL [place] Platelets (Bld) [#/Vol] 188 10*3/uL [place] RBC (Bld) [#/Vol] 2.81 10*6/uL Low 3.95 - 5.1 1 m/uL [place] WBC (Bld) [#/Vol] 11.2 10*3/uL [place] WBC (Bld) [#/Vol] 1.2 10*3/uL High 0.0 per 10 0 WBC [place] Erythrocyte distribution width (RBC) [Ratio] 15.2 % High 11.8-14.4 [facility] Comment on above: Performed By: #### C DP, PFA, CP, GLYHGB #### [facility] [address] [place], [place] [phone] Corrosion Control Specialist: Savage Jacob MD Hematocrit (Bld) [Volume fraction] 26.1 % Low 36.3-47.1 [facility] Comment on above: Performed By: #### C DP, PFA, CP, GLYHGB #### [place] [address] Corrosion Control Specialist: Savage Jacob MD Hemoglobin (Bld) [Mass/Vol] 8.2 g/dL Low 11.9-15.1 [facility] Comment on above: Performed By: #### C DP, PFA, CP, GLYHGB #### [place] [address] Corrosion Control Specialist: Savage Jacob MD MCH (RBC) [Entitic mass] 28.7 pg Normal 25.2-33.5 [facility] Comment on above: Performed By: #### C DP, PFA, CP, GLYHGB #### [place] [address] Corrosion Control Specialist: Savage Jacob MD MCHC (RBC) [Mass/Vol] 31.4 g/dL Normal 28.4-34.8 [facility] Comment on above: Performed By: #### C DP, PFA, CP, GLYHGB #### [place] [address] Corrosion Control Specialist: Savage Jacob MD MCV (RBC) [Entitic vol] 91.3 fL Normal 82.6-102.9 [facility] Comment on above: Performed By: #### C DP, PFA, CP, GLYHGB #### [place] [address] Corrosion Control Specialist: Savage Jacob MD NRBC Automated 1.0 per 100 WBC High 0.0 [facility] Comment on above: Performed By: #### C DP, PFA, CP, GLYHGB #### [place] [address] Corrosion Control Specialist: Savage Jacob MD Platelet mean volume (Bld) [Entitic vol] 9.9 fL Normal 8.1-13.5 [facility] Comment on above: Performed By: #### C DP, PFA, CP, GLYHGB #### [address] [address] Corrosion Control Specialist: Savage Jacob MD Platelets (Bld) [#/Vol] 173 10*3/uL Normal 138-453 [facility] Comment on above: Performed By: #### C DP, PFA, CP, GLYHGB #### [address] [address] Corrosion Control Specialist: Savage Jacob MD RBC (Bld) [#/Vol] 2.86 10*6/uL Low 3.95-5.11 [facility] Comment on above: Performed By: #### C DP, PFA, CP, GLYHGB #### [facility] [employer] [address] [place] [address] Corrosion Control Specialist: Savage Jacob MD WBC (Bld) [#/Vol] 11.1 10*3/uL Normal 3.5-11.3 [facility] Comment on above: Performed By: #### C DP, PFA, CP, GLYHGB #### [facility] [employer] [address] [place] [address] Corrosion Control Specialist: Savage Jacob MD Erythrocyte distribution width (RBC) [Ratio] 15.2 % High 11.8 - 14.4 % [place] Hematocrit (Bld) [Volume fraction] 26.1 % Low 36.3 - 47.1 % [place] Hemoglobin (Bld) [Mass/Vol] 8.2 g/dL Low 11.9 - 15.1 g/dL [place] Interpretation and review of laboratory results Abnormal [place] MCH (RBC) [Entitic mass] 28.7 pg 25.2 - 33.5 pg [place] MCHC (RBC) [Mass/Vol] 31.4 g/dL 28.4 - 34.8 g/dL [place] MCV (RBC) [Entitic vol] 91.3 fL 82.6 - 102.9 fL [place] Platelet mean volume (Bld) [Entitic vol] 9.9 fL 8.1 - 13.5 fL [place] Platelets (Bld) [#/Vol] 173 10*3/uL [place] RBC (Bld) [#/Vol] 2.86 10*6/uL Low 3.95 - 5.1 1 m/uL [place] WBC (Bld) [#/Vol] 11.1 10*3/uL [place] WBC (Bld) [#/Vol] 1.0 10*3/uL High 0.0 per 10 0 WBC [place] Comp Metabolic Profon 2019 (cont.) Normal [facility] Comment on above: Result Comment: Aver age GFR for 70 or more years old: 75 mL/min/1.73sq m Chronic Kidney Disease: <60 mL/min/1.73sq m Kidney failure: <15 mL/min/1.73sq m eGFR calculated using average adult body mass. Additional eGFR calculator available at: http://www.[employer]/multiple_crcl_2012.htm Performed By: #### C DP, PFA, CP, GLYHGB #### [facility] [employer] [address] [place] [phone] Corrosion Control Specialist: Savage Jacob MD Albumin [Mass/Vol] 3.3 g/dL Low 3.5-5.2 [facility] Comment on above: Performed By: #### C DP, PFA, CP, GLYHGB #### [facility] [employer] [address] [place] [address] Corrosion Control Specialist: Savage Jacob MD Albumin/Globulin [Mass ratio] 1.4 {ratio} Normal 1.0-2.5 [facility] Comment on above: Performed By: #### C DP, PFA, CP, GLYHGB #### [address] [address] Corrosion Control Specialist: Savage Jacob MD Alkaline Phos 67 U/L Normal 35-104 [facility] Comment on above: Performed By: #### C DP, PFA, CP, GLYHGB #### [address] [address] Corrosion Control Specialist: Savage Jacob MD ALT [Catalytic activity/Vol] 17 U/L Normal 5-33 [facility] Comment on above: Performed By: #### C DP, PFA, CP, GLYHGB #### [address] [address] Corrosion Control Specialist: Savage Jacob MD Anion gap [Moles/Vol] 11 mmol/L Normal 9-17 [facility] Comment on above: Performed By: #### C DP, PFA, CP, GLYHGB #### [address] [address] Corrosion Control Specialist: Savage Jacob MD AST [Catalytic activity/Vol] 29 U/L Normal <32 [facility] Comment on above: Performed By: #### C DP, PFA, CP, GLYHGB #### [place] [address] Corrosion Control Specialist: Savage Jacob MD Bilirubin Ql (U) 0.36 mg/dL Normal 0.3-1.2 [facility] Comment on above: Performed By: #### C DP, PFA, CP, GLYHGB #### [address] [address] Corrosion Control Specialist: Savage Jacob MD Calcium [Mass/Vol] 8.6 mg/dL Normal 8.6-10.4 [facility] Comment on above: Performed By: #### C DP, PFA, CP, GLYHGB #### [facility] [address] [place] [address] Corrosion Control Specialist: Savage Jacob MD Chloride [Moles/Vol] 107 mmol/L Normal 98-107 [facility] Comment on above: Performed By: #### C DP, PFA, CP, GLYHGB #### [facility] [employer] [address] [place] [address] Corrosion Control Specialist: Savage Jacob MD CO2 [Moles/Vol] 24 mmol/L Normal 20-31 [facility] Comment on above: Performed By: #### C DP, PFA, CP, GLYHGB #### [facility] [employer] [address] [place] [address] Corrosion Control Specialist: Savage Jacob MD Creatinine [Mass/Vol] 1.48 mg/dL High 0.50-0.90 [facility] Comment on above: Performed By: #### C DP, PFA, CP, GLYHGB #### [facility] [employer] [address] [place] [address] Corrosion Control Specialist: Savage Jacob MD GFR, Amer 42 mL/min Low >60 [facility] Comment on above: Performed By: #### C DP, PFA, CP, GLYHGB #### [facility] [employer] [address] [place] [address] Corrosion Control Specialist: Savage Jacob MD GFR,non Amer 35 mL/min Low >60 [facility] Comment on above: Performed By: #### C DP, PFA, CP, GLYHGB #### [facility] [employer] [address] [place] [phone] Corrosion Control Specialist: Savage Jacob MD Glucose [Mass/Vol] 179 mg/dL High 70-99 [facility] Comment on above: Performed By: #### C DP, PFA, CP, GLYHGB #### [facility] [address] [place] [phone] Corrosion Control Specialist: Savage Jacob MD Potassium [Moles/Vol] 3.7 mmol/L Normal 3.7-5.3 [facility] Comment on above: Performed By: #### C DP, PFA, CP, GLYHGB #### [address] [address] Corrosion Control Specialist: Savage Jacob MD Protein [Mass/Vol] 5.7 g/dL Low 6.4-8.3 [facility] Comment on above: Performed By: #### C DP, PFA, CP, GLYHGB #### [address] [address] Corrosion Control Specialist: Savage Jacob MD Sodium [Moles/Vol] 142 mmol/L Normal 135-144 [facility] Comment on above: Performed By: #### C DP, PFA, CP, GLYHGB #### [address] [address] Corrosion Control Specialist: Savage Jacob MD Urea nitrogen [Mass/Vol] 46 mg/dL High - [facility] Comment on above: Performed By: #### C DP, PFA, CP, GLYHGB #### [address] [address] Corrosion Control Specialist: Savage Jacob MD BUN/CRE Ratio NOT REPORTED Normal - [facility] Comment on above: Performed By: #### C DP, PFA, CP, GLYHGB #### [facility] [address] [place] [phone] Corrosion Control Specialist: Savage Jacob MD Staging: NOT REPORTED Normal [facility] Comment on above: Performed By: #### C DP, PFA, CP, GLYHGB #### [address] [address] Corrosion Control Specialist: Savage Jacob MD Comprehensive Metabolic Pane florentin 07-09-2019 Albumin [Mass/Vol] 3.3 g/dL Low 3.5 - 5.2 g/dL [place] Albumin/Globulin [Mass ratio] 1.4 {ratio} [place] ALP [Catalytic activity/Vol] 67 U/L 35 - 104 U/L [place] ALT [Catalytic activity/Vol] 17 U/L 5 - 33 U/L [place] Anion gap [Moles/Vol] 11 mmol/L 9 - 17 mmol/L [place] AST [Catalytic activity/Vol] 29 U/L <32 [place] Bilirubin Ql (U) 0.36 mg/dL 0.3 - 1.2 mg/dL [place] Bun/Cre Ratio NOT REPORTED [place] Calcium [Mass/Vol] 8.6 mg/dL 8.6 - 10. 4 mg/dL [place] Chloride [Moles/Vol] 107 mmol/L 98 - 10 7 mmol/L [place] CO2 [Moles/Vol] 24 mmol/L 20 - 31 mmol/L [place] Creatinine [Mass/Vol] 1.48 mg/dL High 0.5 - 0.9 mg/dL [place] GFR 42 mL/min Low >60 [place] GFR Comment [place] GFR Non- 35 mL/min Low >60 [place] GFR Staging NOT REPORTED [place] Glucose [Mass/Vol] 179 mg/dL High 70 - 99 mg/dL [place], [place] Potassium [Moles/Vol] 3.7 mmol/L 3.7 - 5.3 mmol/L [place] Protein [Mass/Vol] 5.7 g/dL Low 6.4 - 8.3 g/dL [place] Sodium [Moles/Vol] 142 mmol/L 135 - 144 mmol/L [place] Urea nitrogen [Mass/Vol] 46 mg/dL High 8 - 23 mg/dL [place] EKG 12 [place]on 07-09-2019 Atrial Rate 97 BPM [facility] Atrial Rate 107 BPM [facility] P [place] 35 degrees [facility] P-R Interval 204 ms [facility] [place] Q-T Interval 366 ms [facility] [place] Q-T Interval 358 ms [facility] [place] QRS Duration 88 ms [facility] [place] QRS Duration 86 ms [facility] [place] QTc Calculation (Bazett) 464 ms [facility] QTc Calculation (Bazett) 447 ms [facility] R [place] 28 degrees [facility] R [place] 22 degrees [facility] T [place] 2 degrees [facility] T [place] -24 degrees [facility] Ventricular Rate 97 BPM [facility] [place] Ventricular Rate 94 BPM [facility] [place] Lactic Acid, POCon 0 POC Lactic Acid 0.64 mmol/L 0.56 - 1.39 mmol/L [facility], [place] Liver Profileon 07-09-2019 Albumin [Mass/Vol] 3.3 g/dL Low 3.5-5.2 [facility] Comment on above: Performed By: #### C DP, PFA, CP, GLYHGB #### [facility] [address] [place] [phone] Corrosion Control Specialist: Savage Jacob MD Albumin/Globulin [Mass ratio] 1.5 {ratio} Normal 1.0-2.5 [facility] Comment on above: Performed By: #### C DP, PFA, CP, GLYHGB #### [facility] [address] [place] [phone] Corrosion Control Specialist: Savage Jacob MD Alkaline Phos 57 U/L Normal 35-104 [facility] Comment on above: Performed By: #### C DP, PFA, CP, GLYHGB #### [facility] [address] [place] [address] [phone] Corrosion Control Specialist: Savage Jacob MD ALT [Catalytic activity/Vol] 17 U/L Normal 5-33 [facility] Comment on above: Performed By: #### C DP, PFA, CP, GLYHGB #### [facility] [employer] [address] [place] [phone] Corrosion Control Specialist: Savage Jacob MD AST [Catalytic activity/Vol] 31 U/L Normal <32 [facility] Comment on above: Performed By: #### C DP, PFA, CP, GLYHGB #### [facility] [address] [place] [phone] Corrosion Control Specialist: Savage Jacob MD Bilirubin Ql (U) 0.38 mg/dL Normal 0.3-1.2 [facility] Comment on above: Performed By: #### C DP, PFA, CP, GLYHGB #### [facility] [employer] [address] [place] [phone] Corrosion Control Specialist: Savage Jacob MD Bilirubin, Indirect 0.25 mg/dL Normal 0.00-1.00 [facility] Comment on above: Performed By: #### C DP, PFA, CP, GLYHGB #### [facility] [employer] [address] [place] [phone] Corrosion Control Specialist: Savage Jacob MD Bilirubin.direct [Mass/Vol] 0.13 mg/dL Normal <0.31 [facility] Comment on above: Performed By: #### C DP, PFA, CP, GLYHGB #### [facility] [address] [place] [phone] Corrosion Control Specialist: Savage Jacob MD Protein [Mass/Vol] 5.5 g/dL Low 6.4-8.3 [facility] Comment on above: Performed By: #### C DP, PFA, CP, GLYHGB #### [facility] [address] [place] [phone] Corrosion Control Specialist: Savage Jacob MD Globulin (S) [Mass/Vol] NOT REPORTED Normal 1.5-3.8 [facility] Comment on above: Performed By: #### C DP, PFA, CP, GLYHGB #### [facility] [place], [place] [phone] Corrosion Control Specialist: Savage Jacob MD Magnesiumon 07-09-2019 Magnesium [Mass/Vol] 2.3 mg/dL Normal 1.6-2.6 [facility] Comment on above: Performed By: #### C DP, PFA, CP, GLYHGB #### [facility] [place], [place] [phone] Corrosion Control Specialist: Savage Jacob MD Magnesium [Mass/Vol] 2.3 mg/dL 1.6 - 2 .6 mg/dL [place] Otheron 07-09-2019 Interpretation and review of laboratory results Abnormal [place] Interpretation and review of laboratory results Abnormal [place] POC Glucose Fingerstickon Interpretation and review of laboratory results Abnormal [place] POC Glucose 173 mg/dL High 65 - 105 mg/dL [place] Interpretation and review of laboratory results Abnormal [place] POC Glucose 141 mg/dL High 65 - 105 mg/dL [place] Interpretation and review of laboratory results Abnormal [place] POC Glucose 126 mg/dL High 65 - 105 mg/dL [place] POTASSIUM (POC)on 07-09-2019 POC Potassium 3.7 mmol/L 3.5 - 4.5 mmol/L [place] PTon 07-09-2019 INR Coag (PPP) [Relative time] 1.8 {INR} Normal [facility] Comment on above: Result Comment: Therapeutic Range: Moderate Anticoagulant Intensity: INR = 2.0-3.0 High Anticoagulant Intensity: INR = 2.5-3.5 Performed By: #### C DP, PFA, CP, GLYHGB #### [facility] [address] [place] [address] [phone] Corrosion Control Specialist: Savage Jacob MD PT Coag (PPP) [Time] 18.4 s High 9.0-12.0 [facility] Comment on above: Performed By: #### C DP, PFA, CP, GLYHGB #### [facility] [address] [place], [place] [phone] Corrosion Control Specialist: Savage Jacob MD Phosphoruson 07-09-2019 Phosphate [Mass/Vol] 2.4 mg/dL Low 2.6 - 4 .5 mg/dL [place] Phosphorus, Inorg.on 020 Phosphorus, Inorg. 2.4 mg/dL Low 2.6-4.5 [facility] Comment on above: Performed By: #### C DP, PFA, CP, GLYHGB #### [facility] [employer] [address] [place] [address] [phone] Corrosion Control Specialist: Savage Jacob MD Protime-INRon 07-09-2019 INR Coag (PPP) [Relative time] 1.8 {INR} [place] Interpretation and review of laboratory results Abnormal [place] PT Coag (PPP) [Time] 18.4 s High [place] Triglycerideson 07-09-2019 Triglyceride [Mass/Vol] 95 mg/dL Normal <150 [facility] Comment on above: Result Comment: Triglyceride Guidelines: <150 Desirable 150-199 Borderline 200-499 High >499 Very high Based on AHA Guidelines for fasting triglyceride, February 2012. Performed By: #### C DP, PFA, CP, GLYHGB #### [facility] [place], [place] [phone] Corrosion Control Specialist: Savage Jacob MD Triglyceride [Mass/Vol] 95 mg/dL <150 [place] XR CHEST PORTABLEon 07-09-19 20 XR CHEST PORTABLE EXAMINATION: ONE XRAY VIEW OF THE CHEST 07/09/2019 6:29 am COMPARISON: Chest portable July 08, 2019 at 0620 hours. HISTORY: ORDERING SYSTEM PROVIDED HISTORY: s/p CABG, AVR TECHNOLOGIST PROVIDED HISTORY: s/p CABG, AVR Reason for Exam: CABG Acuity: Unknown Type of Exam: Unknown FINDINGS: Stable position of left-sided chest tube is noted with trace left apical pneumothorax identified. The heart is moderately enlarged with otherwise unremarkable configuration. The mediastinal contours are within normal limits. Pulmonary vasculature is prominent with cephalization present. Right basilar airspace disease is seen. The pleural surfaces are normal and no evidence of a pleural effusion is seen. Bones and soft tissues are unremarkable. IMPRESSION: 1. Stable positioning of left-sided chest tube with suggestion of left apical trace pneumothorax. 2. Moderate cardiomegaly. 3. Pulmonary vascular congestion plus or minus mild pulmonary interstitial edema. 4. Right basilar airspace disease. Interpreted by: Loki العلي MD Signed by: Loki العلي MD 07/09/19 Final result Normal [place] AMMONIAon 07-08-2019 Ammonia (P) [Mass/Vol] 40 umol/L 11 - 51 umol/L [place] Arterial Blood Gas, POCon Graham Test NOT REPORTED [place] FIO2 60.0 [place] Mode NOT REPORTED [place] Negative Base Excess, Art NOT REPORTED [place] O2 Device/Flow/% BIPAP [place] POC HCO3 25.8 mmol/L 21 - 28 mmol/L [place] POC O2 SAT 96 % 94 - 98 % [place] POC pCO2 43.5 [place] POC pCO2 Temp NOT REPORTED mm Hg [place] POC pH 7.380 [place] POC pH Temp NOT REPORTED [place] POC PO2 86.9 [place] POC pO2 Temp NOT REPORTED mm Hg [place] Positive Base Excess, Art 0 [place] Pt Temp NOT REPORTED [place] Sample Site NOT REPORTED [place] TCO2 (calc), Art 27 mmol/L 22 - 29 mmol/L [place] Graham Test NOT REPORTED [place] FIO2 60.0 [place] Mode NOT REPORTED [place] Negative Base Excess, Art 2 [place] O2 Device/Flow/% BIPAP [place] POC HCO3 24.2 mmol/L 21 - 28 mmol/L [place] POC O2 SAT 96 % 94 - 98 % [place] POC pCO2 43.6 [place] POC pCO2 Temp NOT REPORTED mm Hg [place] POC pH 7.351 [place] POC pH Temp NOT REPORTED [place] POC PO2 86.3 [place] POC pO2 Temp NOT REPORTED mm Hg [place] Positive Base Excess, Art NOT REPORTED [place] Pt Temp NOT REPORTED [place] Sample Site NOT REPORTED [place] TCO2 (calc), Art 26 mmol/L 22 - 29 mmol/L [place] BASIC METABOLIC PANELon 06-23 Anion gap [Moles/Vol] 16 mmol/L 9 - 17 mmol/L [place] Bun/Cre Ratio NOT REPORTED [place] Calcium [Mass/Vol] 8.5 mg/dL Low 8.6 - 10. 4 mg/dL [place] Chloride [Moles/Vol] 107 mmol/L 98 - 10 7 mmol/L [place] CO2 [Moles/Vol] 22 mmol/L 20 - 31 mmol/L [place] Creatinine [Mass/Vol] 1.48 mg/dL High 0.5 - 0.9 mg/dL [place] GFR 42 mL/min Low >60 [place] GFR Comment [place] GFR Non- 35 mL/min Low >60 [place] GFR Staging NOT REPORTED [place] Glucose [Mass/Vol] 195 mg/dL High 70 - 99 mg/dL [place] Interpretation and review of laboratory results Abnormal [place] Potassium [Moles/Vol] 3.6 mmol/L Low 3.7 - 5.3 mmol/L [place] Sodium [Moles/Vol] 145 mmol/L High 135 - 144 mmol/L [place] Urea nitrogen [Mass/Vol] 48 mg/dL High 8 - 23 mg/dL [place] Basic Metabolic Panelon 06-23 Anion gap [Moles/Vol] 15 mmol/L 9 - 17 mmol/L [place] Bun/Cre Ratio NOT REPORTED [place] Calcium [Mass/Vol] 8.4 mg/dL Low 8.6 - 10. 4 mg/dL [place] Chloride [Moles/Vol] 104 mmol/L 98 - 10 7 mmol/L [place] CO2 [Moles/Vol] 22 mmol/L 20 - 31 mmol/L [place] Creatinine [Mass/Vol] 1.62 mg/dL High 0.5 - 0.9 mg/dL [place] GFR 38 mL/min Low >60 [place] GFR Comment [place] GFR Non- 31 mL/min Low >60 [place] GFR Staging NOT REPORTED [place] Glucose [Mass/Vol] 185 mg/dL High 70 - 99 mg/dL [place] Interpretation and review of laboratory results Abnormal [place] Potassium [Moles/Vol] 4.1 mmol/L 3.7 - 5.3 mmol/L [place] Sodium [Moles/Vol] 141 mmol/L 135 - 144 mmol/L [place] Urea nitrogen [Mass/Vol] 52 mg/dL High 8 - 23 mg/dL [place] Basic Metabolic Profon 07-08 (cont.) Normal [facility] Comment on above: Result Comment: Aver age GFR for 70 or more years old: 75 mL/min/1.73sq m Chronic Kidney Disease: <60 mL/min/1.73sq m Kidney failure: <15 mL/min/1.73sq m eGFR calculated using average adult body mass. Additional eGFR calculator available at: http://[email or web address]/multiple_crcl_2012.htm Performed By: #### C DP, PFA, CP, GLYHGB #### [address] [address] Corrosion Control Specialist: Savage Jacob MD Anion gap [Moles/Vol] 16 mmol/L Normal 9-17 [facility] Comment on above: Performed By: #### C DP, PFA, CP, GLYHGB #### [address] [address] Corrosion Control Specialist: Savage Jacob MD Calcium [Mass/Vol] 8.5 mg/dL Low 8.6-10.4 [facility] Comment on above: Performed By: #### C DP, PFA, CP, GLYHGB #### [address] [address] Corrosion Control Specialist: Savage Jacob MD Chloride [Moles/Vol] 107 mmol/L Normal 98-107 [facility] Comment on above: Performed By: #### C DP, PFA, CP, GLYHGB #### [address] [address] Corrosion Control Specialist: Savage Jacob MD CO2 [Moles/Vol] 22 mmol/L Normal 20-31 [facility] Comment on above: Performed By: #### C DP, PFA, CP, GLYHGB #### [address] [address] Corrosion Control Specialist: Savage Jacob MD Creatinine [Mass/Vol] 1.48 mg/dL High 0.50-0.90 [facility] Comment on above: Performed By: #### C DP, PFA, CP, GLYHGB #### [facility] [address] [place] [phone] Corrosion Control Specialist: Savage Jacob MD GFR, Amer 42 mL/min Low >60 [facility] Comment on above: Performed By: #### C DP, PFA, CP, GLYHGB #### [address] [address] Corrosion Control Specialist: Savage Jacob MD GFR,non Amer 35 mL/min Low >60 [facility] Comment on above: Performed By: #### C DP, PFA, CP, GLYHGB #### [address] [address] Corrosion Control Specialist: Savage Jacob MD Glucose [Mass/Vol] 195 mg/dL High 70-99 [facility] Comment on above: Performed By: #### C DP, PFA, CP, GLYHGB #### [address] [address] Corrosion Control Specialist: Savage Jacob MD Potassium [Moles/Vol] 3.6 mmol/L Low 3.7-5.3 [facility] Comment on above: Performed By: #### C DP, PFA, CP, GLYHGB #### [address] [address] Corrosion Control Specialist: Savage Jacob MD Sodium [Moles/Vol] 145 mmol/L High 135-144 [facility] Comment on above: Performed By: #### C DP, PFA, CP, GLYHGB #### [address] [address] Corrosion Control Specialist: Savage Jacob MD Urea nitrogen [Mass/Vol] 48 mg/dL High 8-23 [facility] Comment on above: Performed By: #### C DP, PFA, CP, GLYHGB #### [address] [address] Corrosion Control Specialist: Savage Jacob MD BUN/CRE Ratio NOT REPORTED Normal - [facility] Comment on above: Performed By: #### C DP, PFA, CP, GLYHGB #### [facility] [employer] [address] [place] [phone] Corrosion Control Specialist: Savage Jacob MD Staging: NOT REPORTED Normal [facility] Comment on above: Performed By: #### C DP, PFA, CP, GLYHGB #### [address] [address] Corrosion Control Specialist: Savage Jacob MD (cont.) Normal [facility] Comment on above: Result Comment: Aver age GFR for 70 or more years old: 75 mL/min/1.73sq m Chronic Kidney Disease: <60 mL/min/1.73sq m Kidney failure: <15 mL/min/1.73sq m eGFR calculated using average adult body mass. Additional eGFR calculator available at: http://[email or web address]/multiple_crcl_2011.htm Performed By: #### C DP, PFA, CP, GLYHGB #### [address] [address] Corrosion Control Specialist: Savage Jacob MD Anion gap [Moles/Vol] 15 mmol/L Normal 9-17 [facility] Comment on above: Performed By: #### C DP, PFA, CP, GLYHGB #### [address] [address] Corrosion Control Specialist: Savage Jacob MD Calcium [Mass/Vol] 8.4 mg/dL Low 8.6-10.4 [facility] Comment on above: Performed By: #### C DP, PFA, CP, GLYHGB #### [facility] [employer] [address] [place] [phone] Corrosion Control Specialist: Savage Jacob MD Chloride [Moles/Vol] 104 mmol/L Normal 98-107 [facility] Comment on above: Performed By: #### C DP, PFA, CP, GLYHGB #### [facility] [employer] [address] [place] [phone] Corrosion Control Specialist: Savage Jacob MD CO2 [Moles/Vol] 22 mmol/L Normal 20-31 [facility] Comment on above: Performed By: #### C DP, PFA, CP, GLYHGB #### [facility] [address] [place] [phone] Corrosion Control Specialist: Savage Jacob MD Creatinine [Mass/Vol] 1.62 mg/dL High 0.50-0.90 [facility] Comment on above: Performed By: #### C DP, PFA, CP, GLYHGB #### [facility] [address] [place] [phone] Corrosion Control Specialist: Savage Jacob MD GFR, Amer 38 mL/min Low >60 [facility] Comment on above: Performed By: #### C DP, PFA, CP, GLYHGB #### [facility] [address] [place] [phone] Corrosion Control Specialist: Savage Jacob MD GFR,non Amer 31 mL/min Low >60 [facility] Comment on above: Performed By: #### C DP, PFA, CP, GLYHGB #### [facility] [address] [place] [address] Corrosion Control Specialist: Savage Jacob MD Glucose [Mass/Vol] 185 mg/dL High 70-99 [facility] Comment on above: Performed By: #### C DP, PFA, CP, GLYHGB #### [facility] [address] [place] [phone] Corrosion Control Specialist: Savage Jacob MD Potassium [Moles/Vol] 4.1 mmol/L Normal 3.7-5.3 [facility] Comment on above: Performed By: #### C DP, PFA, CP, GLYHGB #### [facility] [address] [place] [phone] Corrosion Control Specialist: Savage Jacob MD Sodium [Moles/Vol] 141 mmol/L Normal 135-144 [facility] Comment on above: Performed By: #### C DP, PFA, CP, GLYHGB #### [facility] [employer] [address] [place] [phone] Corrosion Control Specialist: Savage Jacob MD Urea nitrogen [Mass/Vol] 52 mg/dL High - [facility] Comment on above: Performed By: #### C DP, PFA, CP, GLYHGB #### [facility] [employer] [address] [place] [phone] Corrosion Control Specialist: Savage Jacob MD BUN/CRE Ratio NOT REPORTED Normal 02-09 [facility] Comment on above: Performed By: #### C DP, PFA, CP, GLYHGB #### [address] [address] Corrosion Control Specialist: Savage Jacob MD Staging: NOT REPORTED Normal [facility] Comment on above: Performed By: #### C DP, PFA, CP, GLYHGB #### [facility] [employer] [address] [place] [phone] Corrosion Control Specialist: Savage Jacob MD CBCon 07-08-2019 Erythrocyte distribution width (RBC) [Ratio] 15.5 % High 11.8-14.4 [facility] Comment on above: Performed By: #### C DP, PFA, CP, GLYHGB #### [facility] [employer] [address] [place] [phone] Corrosion Control Specialist: Savage Jacob MD Hematocrit (Bld) [Volume fraction] 27.0 % Low 36.3-47.1 [facility] Comment on above: Performed By: #### C DP, PFA, CP, GLYHGB #### [facility] [employer] [address] [place] [phone] Corrosion Control Specialist: Savage Jacob MD Hemoglobin (Bld) [Mass/Vol] 8.4 g/dL Low 11.9-15.1 [facility] Comment on above: Performed By: #### C DP, PFA, CP, GLYHGB #### [address] [address] Corrosion Control Specialist: Savage Jacob MD MCH (RBC) [Entitic mass] 28.4 pg Normal 25.2-33.5 [facility] Comment on above: Performed By: #### C DP, PFA, CP, GLYHGB #### [address] [address] Corrosion Control Specialist: Savage Jacob MD MCHC (RBC) [Mass/Vol] 31.1 g/dL Normal 28.4-34.8 [facility] Comment on above: Performed By: #### C DP, PFA, CP, GLYHGB #### [place] [address] Corrosion Control Specialist: Savage Jacob MD MCV (RBC) [Entitic vol] 91.2 fL Normal 82.6-102.9 [facility] Comment on above: Performed By: #### C DP, PFA, CP, GLYHGB #### [address] [address] Corrosion Control Specialist: Savage Jacob MD NRBC Automated 0.5 per 100 WBC High 0.0 [facility] Comment on above: Performed By: #### C DP, PFA, CP, GLYHGB #### [address] [address] Corrosion Control Specialist: Savage Jacob MD Platelet mean volume (Bld) [Entitic vol] 9.7 fL Normal 8.1-13.5 [facility] Comment on above: Performed By: #### C DP, PFA, CP, GLYHGB #### [address] [address] Corrosion Control Specialist: Savage Jacob MD Platelets (Bld) [#/Vol] 151 10*3/uL Normal 138-453 [facility] Comment on above: Performed By: #### C DP, PFA, CP, GLYHGB #### [facility] [address] [place], [place] [phone] Corrosion Control Specialist: Savage Jacob MD RBC (Bld) [#/Vol] 2.96 10*6/uL Low 3.95-5.11 [facility] Comment on above: Performed By: #### C DP, PFA, CP, GLYHGB #### [facility] [employer] [address] [place], [place] [phone] Corrosion Control Specialist: Savage Jacob MD WBC (Bld) [#/Vol] 11.1 10*3/uL Normal 3.5-11.3 [facility] Comment on above: Performed By: #### C DP, PFA, CP, GLYHGB #### [facility] [employer] [address] [place], [place] [phone] Corrosion Control Specialist: Savage Jacob MD Erythrocyte distribution width (RBC) [Ratio] 15.5 % High 11.8 - 14.4 % [place] Hematocrit (Bld) [Volume fraction] 27.0 % Low 36.3 - 47.1 % [place] Hemoglobin (Bld) [Mass/Vol] 8.4 g/dL Low 11.9 - 15.1 g/dL [place] Interpretation and review of laboratory results Abnormal [place] MCH (RBC) [Entitic mass] 28.4 pg 25.2 - 33.5 pg [place] MCHC (RBC) [Mass/Vol] 31.1 g/dL 28.4 - 34.8 g/dL [place] MCV (RBC) [Entitic vol] 91.2 fL 82.6 - 102.9 fL [place] Platelet mean volume (Bld) [Entitic vol] 9.7 fL 8.1 - 13.5 fL [place] Platelets (Bld) [#/Vol] 151 10*3/uL [place] RBC (Bld) [#/Vol] 2.96 10*6/uL Low 3.95 - 5.1 1 m/uL [place] WBC (Bld) [#/Vol] 0.5 10*3/uL High 0.0 per 10 0 WBC [place] WBC (Bld) [#/Vol] 11.1 10*3/uL [place] CT HEAD WO CONTRASTon 2019 CT HEAD WO CONTRAST EXAMINATION: CT OF THE HEAD WITHOUT CONTRAST 07/08/2019 6:47 am TECHNIQUE: CT of the head was performed without the administration of intravenous contrast. Dose modulation, iterative reconstruction, and/or weight based adjustment of the mA/kV was utilized to reduce the radiation dose to as low as reasonably achievable. COMPARISON: July 06, 2019 HISTORY: ORDERING SYSTEM PROVIDED HISTORY: stroke TECHNOLOGIST PROVIDED HISTORY: stroke Reason for Exam: stroke Acuity: Unknown Type of Exam: Unknown FINDINGS: Evaluation is limited by motion. No gross evidence of acute intracranial hemorrhage. No mass effect. No midline shift. Interval increased low density within the right posterior parietal-temporal region consistent with a subacute left MCA infarct. Remote basal ganglia lacunar infarcts. No acute soft tissue abnormality. Visualized portions of the orbits demonstrate no acute abnormality. Mastoid air cells are clear. Small air-fluid levels within the sphenoid sinuses. No acute skull fracture. IMPRESSION: Evolving moderate right MCA distribution infarct. Interpreted by: Jesús Clemons MD Signed by: Jesús Clemons MD 07/08/19 Final result Normal [place] HEPATIC FUNCTION PANELon Albumin [Mass/Vol] 3.3 g/dL Low 3.5 - 5.2 g/dL [place] Albumin/Globulin [Mass ratio] 1.5 {ratio} [place] ALP [Catalytic activity/Vol] 57 U/L 35 - 104 U/L [place] ALT [Catalytic activity/Vol] 17 U/L 5 - 33 U/L [place] AST [Catalytic activity/Vol] 31 U/L <32 [place] Bilirubin Ql (U) 0.38 mg/dL 0.3 - 1.2 mg/dL [place] Bilirubin, Indirect 0.25 mg/dL 0 - 1 mg/dL [place], [place] Bilirubin.direct [Mass/Vol] 0.13 mg/dL <0.31 [place] Globulin NOT REPORTED 1.5 - 3.8 g/dL [place] Interpretation and review of laboratory results Abnormal [place] Protein [Mass/Vol] 5.5 g/dL Low 6.4 - 8.3 g/dL [place] Magnesiumon 07-08-2019 Magnesium [Mass/Vol] 2.3 mg/dL Normal 1.6-2.6 [facility] Comment on above: Performed By: #### C DP, PFA, CP, GLYHGB #### [facility] [employer] [address] [place] [address] [phone] Corrosion Control Specialist: Savage Jacob MD Magnesium [Mass/Vol] 2.3 mg/dL 1.6 - 2 .6 mg/dL [place] POC Glucose Fingerstickon Interpretation and review of laboratory results Abnormal [place] POC Glucose 187 mg/dL High 65 - 105 mg/dL [place] Interpretation and review of laboratory results Abnormal [place] POC Glucose 123 mg/dL High 65 - 105 mg/dL [place] Interpretation and review of laboratory results Abnormal [place] POC Glucose 180 mg/dL High 65 - 105 mg/dL [place] Interpretation and review of laboratory results Abnormal [place] POC Glucose 174 mg/dL High 65 - 105 mg/dL [place] POCT Glucoseon 07-08-2019 Interpretation and review of laboratory results Abnormal [place] POC Glucose 199 mg/dL High 74 - 100 mg/dL [place] POTASSIUM (POC)on 07-08-2019 POC Potassium 3.5 mmol/L 3.5 - 4.5 mmol/L [place] PTon 07-08-2019 INR Coag (PPP) [Relative time] 1.7 {INR} Normal [facility] Comment on above: Result Comment: Therapeutic Range: Moderate Anticoagulant Intensity: INR = 2.0-3.0 High Anticoagulant Intensity: INR = 2.5-3.5 Performed By: #### C DP, PFA, CP, GLYHGB #### [facility] [employer] [address] [place], [place] [phone] Corrosion Control Specialist: Savage Jacob MD PT Coag (PPP) [Time] 16.8 s High 9.0-12.0 [facility] Comment on above: Performed By: #### C DP, PFA, CP, GLYHGB #### [facility] [employer] [address] [place], [place] [phone] Corrosion Control Specialist: Savage Jacob MD Protime-INRon 07-08-2019 INR Coag (PPP) [Relative time] 1.7 {INR} [place] Interpretation and review of laboratory results Abnormal [place] PT Coag (PPP) [Time] 16.8 s High [place] XR ABDOMEN FOR NG/OG/NE TUBE PLACEMENTon 07-08-2019 XR ABDOMEN FOR NG/OG/NE TUBE PLACEMENT EXAMINATION: ONE SUPINE XRAY VIEW(S) OF THE ABDOMEN 07/08/2019 10:24 am COMPARISON: None HISTORY: ORDERING SYSTEM PROVIDED HISTORY: tube placement TECHNOLOGIST PROVIDED HISTORY: tube placement Portable?->Yes FINDINGS: Enteric tube placement with the tip within the stomach. Small right lung base opacity. IMPRESSION: Enteric tube with the tip within the stomach. Interpreted by: Jesús Clemons MD Signed by: Jesús Clemons MD 07/08/19 Final result Normal [place] XR CHEST PORTABLEon 07-08-19 20 XR CHEST PORTABLE EXAMINATION: ONE XRAY VIEW OF THE CHEST 07/08/2019 6:10 am COMPARISON: Chest portable July 07, 2019 at 0625 hours HISTORY: ORDERING SYSTEM PROVIDED HISTORY: s/p CABG, AVR TECHNOLOGIST PROVIDED HISTORY: s/p CABG, AVR Reason for Exam: s/p CABG, avr Acuity: Unknown Type of Exam: Unknown Relevant Medical/Surgical History: port ap upright FINDINGS: Small durotomy postoperative changes are again seen, unchanged. Right subclavian approach central venous catheter seen with distal tip located within the SVC. Left-sided chest tube is stable in position with distal tip near the lung apex. The heart is moderately enlarged with otherwise unremarkable configuration. The mediastinal contours are within normal limits. Central pulmonary vascular prominence is present. The lungs are well aerated. The pleural surfaces are normal and no evidence of a pleural effusion is seen. Bones and soft tissues are unremarkable. IMPRESSION: 1. Moderate cardiomegaly. 2. Central pulmonary vascular congestion. 3. Stable positioning of left-sided chest tube. Interpreted by: Loki العلي MD Signed by: Loki العلي MD 07/08/19 Final result Normal [place] Anion Gap (Calc) POCon 07-07 Anion gap [Moles/Vol] 10 mmol/L 7 - 16 mmol/L [place] Arterial Blood Gas, POCon Graham Test NOT REPORTED [place], [place] FIO2 45.0 [place] Mode NIV [place] Negative Base Excess, Art 2 [place] O2 Device/Flow/% NOT REPORTED [place] POC HCO3 23.6 mmol/L 21 - 28 mmol/L [place] P[place] O2 SAT 98 % 94 - 98 % [place] POC pCO2 46.1 [place] POC pCO2 Temp NOT REPORTED mm [place] P[place] pH 7.318 Low [place] POC pH Temp NOT REPORTED [facility] [place] PO2 109.9 High [place] POC pO2 Temp NOT REPORTED mm Hg [place] Positive Base Excess, Art NOT REPORTED [place] Pt Temp NOT REPORTED [place] Sample Site Arterial Line [place] TCO2 (calc), Art 25 mmol/L 22 - 29 mmol/L [place] Graham Test NOT REPORTED [place] FIO2 40.0 [place] Interpretation and review of laboratory results Abnormal [place] Mode CPAP/PS [place] Negative Base Excess, Art 2 [place] O2 Device/Flow/% Adult Ventilator [place] P[place] HCO3 24.1 mmol/L 21 - 28 mmol/L [place] POC O2 SAT 96 % 94 - 98 % [place] POC pCO2 45.2 [place] POC pCO2 Temp NOT REPORTED mm [place] P[place] pH 7.335 Low [place] POC pH Temp NOT REPORTED [facility] [place] PO2 87.5 [place] POC pO2 Temp NOT REPORTED mm Hg [place] Positive Base Excess, Art NOT REPORTED [place] Pt Temp NOT REPORTED [place] Sample Site Arterial Line [place] TCO2 (calc), Art 26 mmol/L 22 - 29 mmol/L [place] Graham Test NOT REPORTED [place] FIO2 35.0 [place] Mode SIMV(PRVC)+ PS [place] Negative Base Excess, Art 4 High [place] O2 Device/Flow/% Adult Ventilator [place] POC HCO3 21.8 mmol/L 21 - 28 mmol/L [place] POC O2 SAT 96 % 94 - 98 % [place] POC pCO2 39.4 [place] POC pCO2 Temp NOT REPORTED mm [place] P[place] pH 7.351 [place] POC pH Temp NOT REPORTED [place] POC PO2 86.1 [place] POC pO2 Temp NOT REPORTED mm Hg [place] Positive Base Excess, Art NOT REPORTED [place] Pt Temp NOT REPORTED [place] Sample Site Arterial Line [place] TCO2 (calc), Art 23 mmol/L 22 - 29 mmol/L [place] Graham Test NOT APPLICABLE [place] FIO2 NOT REPORTED [place] Interpretation and review of laboratory results Abnormal [place] Mode NOT REPORTED [place] Negative Base Excess, Art 2 [place] O2 Device/Flow/% Adult Ventilator [place] POC HCO3 22.7 mmol/L 21 - 28 mmol/L [place] POC O2 SAT 98 % 94 - 98 % [place] POC pCO2 39.0 [place] POC pCO2 Temp NOT REPORTED mm [place] P[place] pH 7.372 [place] POC pH Temp NOT REPORTED [place] POC PO2 118.8 High [place] POC pO2 Temp NOT REPORTED mm Hg [place] Positive Base Excess, Art NOT REPORTED [place] Pt Temp NOT REPORTED [place] Sample Site Arterial Line [place] TCO2 (calc), Art 24 mmol/L 22 - 29 mmol/L [place] Graham Test NOT APPLICABLE [place] FIO2 NOT REPORTED [place] Mode NOT REPORTED [place] Negative Base Excess, Art 3 High [place] O2 Device/Flow/% Adult Ventilator [place] POC HCO3 22.1 mmol/L 21 - 28 mmol/L [place] POC O2 SAT 95 % 94 - 98 % [place] POC pCO2 39.8 [place] POC pCO2 Temp NOT REPORTED mm [place] POC pH 7.352 [place] POC pH Temp NOT REPORTED [place] POC PO2 80.9 Low [place] POC pO2 Temp NOT REPORTED mm Hg [place] Positive Base Excess, Art NOT REPORTED [place] Pt Temp NOT REPORTED [place] Sample Site Arterial Line [place] TCO2 (calc), Art 23 mmol/L 22 - 29 mmol/L [place] Basic Metab w/rfx MGon 07-07 (cont.) Normal [facility] Comment on above: Result Comment: Aver age GFR for 70 or more years old: 75 mL/min/1.73sq m Chronic Kidney Disease: <60 mL/min/1.73sq m Kidney failure: <15 mL/min/1.73sq m eGFR calculated using average adult body mass. Additional eGFR calculator available at: http://www.Dibsie/multiple_crcl_2012.htm Performed By: #### C DP, PFA, CP, GLYHGB #### [facility] [employer] [address] [place] [id number] Corrosion Control Specialist: Savage Jacob MD Anion gap [Moles/Vol] 15 mmol/L Normal 9-17 [facility] Comment on above: Performed By: #### C DP, PFA, CP, GLYHGB #### [facility] [employer] [address] [place] [phone] Corrosion Control Specialist: Savage Jacob MD Calcium [Mass/Vol] 8.4 mg/dL Low 8.6-10.4 [facility] Comment on above: Performed By: #### C DP, PFA, CP, GLYHGB #### [facility] [address] [place] [phone] Corrosion Control Specialist: Savage Jacob MD Chloride [Moles/Vol] 105 mmol/L Normal 98-107 [facility] Comment on above: Performed By: #### C DP, PFA, CP, GLYHGB #### [facility] [address] [place] [phone] Corrosion Control Specialist: Savage Jacob MD CO2 [Moles/Vol] 21 mmol/L Normal 20-31 [facility] Comment on above: Performed By: #### C DP, PFA, CP, GLYHGB #### [facility] [address] Corrosion Control Specialist: Savage Jacob MD Creatinine [Mass/Vol] 1.76 mg/dL High 0.50-0.90 [facility] Comment on above: Performed By: #### C DP, PFA, CP, GLYHGB #### [address] [address] Corrosion Control Specialist: Savage Jacob MD GFR, Amer 35 mL/min Low >60 [facility] Comment on above: Performed By: #### C DP, PFA, CP, GLYHGB #### [address] [address] Corrosion Control Specialist: Savage Jacob MD GFR,non Amer 29 mL/min Low >60 [facility] Comment on above: Performed By: #### C DP, PFA, CP, GLYHGB #### [address] [address] Corrosion Control Specialist: Savage Jacob MD Glucose [Mass/Vol] 182 mg/dL High 70-99 [facility] Comment on above: Performed By: #### C DP, PFA, CP, GLYHGB #### [address] [address] Corrosion Control Specialist: Savage Jacob MD Potassium [Moles/Vol] 4.4 mmol/L Normal 3.7-5.3 [facility] Comment on above: Performed By: #### C DP, PFA, CP, GLYHGB #### [address] [address] Corrosion Control Specialist: Savage Jacob MD Sodium [Moles/Vol] 141 mmol/L Normal 135-144 [facility] Comment on above: Performed By: #### C DP, PFA, CP, GLYHGB #### [address] [address] Corrosion Control Specialist: Savage Jacob MD Urea nitrogen [Mass/Vol] 54 mg/dL High 8-23 [facility] Comment on above: Performed By: #### C DP, PFA, CP, GLYHGB #### [facility] [address] [place] [address] Corrosion Control Specialist: Savage Jacob MD BUN/CRE Ratio NOT REPORTED Normal 9-20 [facility] Comment on above: Performed By: #### C DP, PFA, CP, GLYHGB #### [facility] [address] [place] [address] Corrosion Control Specialist: Savage Jacob MD Staging: NOT REPORTED Normal [facility] Comment on above: Performed By: #### C DP, PFA, CP, GLYHGB #### [facility] [address] [place], [place] [phone] Corrosion Control Specialist: Savage Jacob MD Basic Metabolic Panelon 06-23 Anion gap [Moles/Vol] 15 mmol/L 9 - 17 mmol/L [place] Bun/Cre Ratio NOT REPORTED [facility] [place] [place] Calcium [Mass/Vol] 8.1 mg/dL Low 8.6 - 10. 4 mg/dL [place] Chloride [Moles/Vol] 104 mmol/L 98 - 10 7 mmol/L [place] CO2 [Moles/Vol] 19 mmol/L Low 20 - 31 mmol/L [place] Creatinine [Mass/Vol] 1.67 mg/dL High 0.5 - 0.9 mg/dL [place] GFR 37 mL/min Low >60 [place], [place] GFR Comment [place] GFR Non- 30 mL/min Low >60 [place] GFR Staging NOT REPORTED [place] Glucose [Mass/Vol] 139 mg/dL High 70 - 99 mg/dL [place], [place] Interpretation and review of laboratory results Abnormal [place] Potassium [Moles/Vol] 3.6 mmol/L Low 3.7 - 5.3 mmol/L [place] Sodium [Moles/Vol] 138 mmol/L 135 - 144 mmol/L [place] Urea nitrogen [Mass/Vol] 55 mg/dL High 8 - 23 mg/dL [place] Basic Metabolic Panel w/ Ref mira to MGon 07-07-2019 Anion gap [Moles/Vol] 15 mmol/L 9 - 17 mmol/L [place] Bun/Cre Ratio NOT REPORTED [place] Calcium [Mass/Vol] 8.4 mg/dL Low 8.6 - 10. 4 mg/dL [place] Chloride [Moles/Vol] 105 mmol/L 98 - 10 7 mmol/L [place] CO2 [Moles/Vol] 21 mmol/L 20 - 31 mmol/L [place] Creatinine [Mass/Vol] 1.76 mg/dL High 0.5 - 0.9 mg/dL [place] GFR 35 mL/min Low >60 [place], [place] GFR Comment [place] GFR Non- 29 mL/min Low >60 [place] GFR Staging NOT REPORTED [place] Glucose [Mass/Vol] 182 mg/dL High 70 - 99 mg/dL [place] Interpretation and review of laboratory results Abnormal [place] Potassium [Moles/Vol] 4.4 mmol/L 3.7 - 5.3 mmol/L [place] Sodium [Moles/Vol] 141 mmol/L 135 - 144 mmol/L [place] Urea nitrogen [Mass/Vol] 54 mg/dL High 8 - 23 mg/dL [place] Basic Metabolic Profon 07-07 (cont.) Normal [facility] Comment on above: Result Comment: Aver age GFR for 70 or more years old: 75 mL/min/1.73sq m Chronic Kidney Disease: <60 mL/min/1.73sq m Kidney failure: <15 mL/min/1.73sq m eGFR calculated using average adult body mass. Additional eGFR calculator available at: http://www.Subimage.com/multiple_crcl_2012.htm Performed By: #### T YS #### [address] [address] Corrosion Control Specialist: Savage Jacob MD Anion gap [Moles/Vol] 15 mmol/L Normal 9-17 [facility] Comment on above: Performed By: #### T YS #### [address] [address] Corrosion Control Specialist: Savage Jacob MD Calcium [Mass/Vol] 8.1 mg/dL Low 8.6-10.4 [facility] Comment on above: Performed By: #### T YS #### [address] [address] Corrosion Control Specialist: Savage Jacob MD Chloride [Moles/Vol] 104 mmol/L Normal 98-107 [facility] Comment on above: Performed By: #### T YS #### [address] [address] Corrosion Control Specialist: Savage Jacob MD CO2 [Moles/Vol] 19 mmol/L Low 20-31 [facility] Comment on above: Performed By: #### T YS #### [address] [address] Corrosion Control Specialist: Savage Jacob MD Creatinine [Mass/Vol] 1.67 mg/dL High 0.50-0.90 [facility] Comment on above: Performed By: #### T YS #### [address] [address] Corrosion Control Specialist: Savage Jacob MD GFR, Amer 37 mL/min Low >60 [facility] Comment on above: Performed By: #### T YS #### [address] [address] Corrosion Control Specialist: Savage Jacob MD GFR,non Amer 30 mL/min Low >60 [facility] Comment on above: Performed By: #### T YS #### [address] [address] Corrosion Control Specialist: Savage Jacob MD Glucose [Mass/Vol] 139 mg/dL High 70-99 [facility] Comment on above: Performed By: #### T YS #### [address] [address] Corrosion Control Specialist: Savage Jacob MD Potassium [Moles/Vol] 3.6 mmol/L Low 3.7-5.3 [facility] Comment on above: Performed By: #### T YS #### [address] [address] Corrosion Control Specialist: Savage Jacob MD Sodium [Moles/Vol] 138 mmol/L Normal 135-144 [facility] Comment on above: Performed By: #### T YS #### [address] [address] Corrosion Control Specialist: Savage Jacob MD Urea nitrogen [Mass/Vol] 55 mg/dL High 8-23 [facility] Comment on above: Performed By: #### T YS #### [address] [address] Corrosion Control Specialist: Savage Jacob MD BUN/CRE Ratio NOT REPORTED Normal 9-20 [facility] Comment on above: Performed By: #### T YS #### [address] [address] Corrosion Control Specialist: Savage Jacob MD Staging: NOT REPORTED Normal [facility] Comment on above: Performed By: #### T YS #### [address] [address] Corrosion Control Specialist: Savage Jacob MD CALCIUM, IONIC (POC)on 07-07 POC Ionized Calcium 1.11 mmol/L Low 1.15 - 1 .33 mmol/L [place] P[place] Ionized Calcium 1.14 mmol/L Low 1.15 - 1 .33 mmol/L [place] CBCon 07-07-2019 NRBC Automated 1.0 per 100 WBC High 0.0 [facility] Comment on above: Performed By: #### T YS #### [facility] [employer] [address] [place] [phone] Corrosion Control Specialist: Savage Jacob MD Erythrocyte distribution width (RBC) [Ratio] 15.7 % High 11.8-14.4 [place] Comment on above: Performed By: #### T YS #### [address] [address] Corrosion Control Specialist: Savage Jacob MD Hematocrit (Bld) [Volume fraction] 27.7 % Low 36.3-47.1 [place] Comment on above: Performed By: #### T YS #### [facility] [employer] [address] [place] [address] Corrosion Control Specialist: Savage Jacob MD Hemoglobin (Bld) [Mass/Vol] 8.9 g/dL Low 11.9-15.1 [place] Comment on above: Performed By: #### T YS #### [facility] [employer] [address] [place] [phone] Corrosion Control Specialist: Savage Jacob MD MCH (RBC) [Entitic mass] 28.8 pg Normal 25.2-33.5 [place] Comment on above: Performed By: #### T YS #### [facility] [employer] [address] [place] [id number] Corrosion Control Specialist: Savage Jacob MD MCHC (RBC) [Mass/Vol] 32.1 g/dL Normal 28.4-34.8 [place] Comment on above: Performed By: #### T YS #### [place] [id number] [place] [address] Corrosion Control Specialist: Savage Jacob MD MCV (RBC) [Entitic vol] 89.6 fL Normal 82.6-102.9 [place] Comment on above: Performed By: #### T YS #### [address] [address] Corrosion Control Specialist: Savage Jacob MD Platelet mean volume (Bld) [Entitic vol] 10.4 fL Normal 8.1-13.5 [place] Comment on above: Performed By: #### T YS #### [address] [address] Corrosion Control Specialist: Savage Jacob MD Platelets (Bld) [#/Vol] 135 10*3/uL Low 138-453 [place] Comment on above: Performed By: #### T YS #### [address] [address] Corrosion Control Specialist: Savage Jacob MD RBC (Bld) [#/Vol] 3.09 10*6/uL Low 3.95-5.11 [place] Comment on above: Performed By: #### T YS #### [address] [address] Corrosion Control Specialist: Savage Jacob MD WBC (Bld) [#/Vol] 15.2 10*3/uL High 3.5-11.3 [place] Comment on above: Performed By: #### T YS #### [address] [address] Corrosion Control Specialist: Savage Jacob MD Interpretation and review of laboratory results Abnormal [place] WBC (Bld) [#/Vol] 1.0 10*3/uL High 0.0 per 10 0 WBC [place] CHLORIDE (POC)on 07-07-2019 POC Chloride 111 mmol/L High 98 - 107 mmol/L [place] Creatinine W/GFR Point of Ca reon 07-07-2019 GFR Comment 41 mL/min Low >60 [facility], [place] GFR Comment [place] GFR Non- 33 mL/min Low >60 [place] POC Creatinine 1.53 mg/dL High 0.51 - 1.19 mg/dL [place] EKG 12 Leadon 07-07-2019 Atrial Rate [address] [facility], [place] Q-T Interval 298 ms [facility] QRS Duration 88 ms [facility] QTc Calculation (Bazett) [address] [facility] [address] [facility], [place] T [place] -[address] [facility], [place] Ventricular Rate 113 BPM [facility], [place] [facility]- [place] [facility], [place] Atrial Rate [address] [facility] [address] [facility] P-R Interval 160 ms [facility] Q-T Interval 506 ms [facility] QRS Duration 104 ms [facility], [place] QTc Calculation (Bazett) [address] [facility], [place] 29 degrees [facility]- [place], [place] T [place] -[address] [facility], [place] Ventricular Rate 61 BPM [facility] [facility] [facility], [place] Echocardiogram Limited 2D Ad ulton 07-07-2019 [facility], [facility], [place] Hemoglobin and hematocrit, b loodon 07-07-2019 POC Hematocrit 23 % Low 36 - 46 % [place] POC Hemoglobin 8.0 g/dL Low 12 - 16 g/dL [facility]- [place], [place] Lactic Acid, POCon 0 POC Lactic Acid 0.51 mmol/L Low 0.56 - 1.39 mmol/L [place] Magnesiumon 07-07-2019 Magnesium [Mass/Vol] 2.3 mg/dL Normal 1.6-2.6 [facility] Comment on above: Performed By: #### T YS #### [facility] [place] [address] Corrosion Control Specialist: Savage aJcob MD Magnesium [Mass/Vol] 2.3 mg/dL 1.6 - 2 .6 mg/dL [place] Otheron 07-07-2019 Interpretation and review of laboratory results Abnormal [place] Interpretation and review of laboratory results Abnormal [place] Interpretation and review of laboratory results Abnormal [place] POC Glucose Fingerstickon Interpretation and review of laboratory results Abnormal [place] POC Glucose 166 mg/dL High 65 - 105 mg/dL [place] Interpretation and review of laboratory results Abnormal [place] POC Glucose 152 mg/dL High 65 - 105 mg/dL [place] Interpretation and review of laboratory results Abnormal [place] POC Glucose 149 mg/dL High 65 - 105 mg/dL [place] Interpretation and review of laboratory results Abnormal [place] POC Glucose 136 mg/dL High 65 - 105 mg/dL [place] POCT Glucoseon 07-07-2019 POC Glucose 169 mg/dL High 74 - 100 mg/dL [place] POC Glucose 165 mg/dL High 74 - 100 mg/dL [place] POC Glucose 143 mg/dL High 74 - 100 mg/dL [place] POTASSIUM (POC)on 07-07-2019 POC Potassium 3.5 mmol/L 3.5 - 4.5 mmol/L [place] POC Potassium 3.7 mmol/L 3.5 - 4.5 mmol/L [place] POC Potassium 3.3 mmol/L Low 3.5 - 4.5 mmol/L [place] PTon 07-07-2019 INR Coag (PPP) [Relative time] 1.2 {INR} Normal [facility] Comment on above: Result Comment: Therapeutic Range: Moderate Anticoagulant Intensity: INR = 2.0-3.0 High Anticoagulant Intensity: INR = 2.5-3.5 Performed By: #### T YS #### [facility] [address] [place], [place] [phone] Corrosion Control Specialist: Savage Jacob MD PT Coag (PPP) [Time] 12.8 s High 9.0-12.0 [facility] Comment on above: Performed By: #### T YS #### [address] [phone] Corrosion Control Specialist: Savage Jacob MD Protime-INRon 07-07-2019 INR Coag (PPP) [Relative time] 1.2 {INR} [place], [place] Interpretation and review of laboratory results Abnormal [place] PT Coag (PPP) [Time] 12.8 s High [place], [place] SODIUM (POC)on 07-07-2019 POC Sodium 145 mmol/L 138 - 146 mmol/L [place], [place] Vancomycin, Randomon 020 Vancomycin Random Date last dose NOT REPORTED [place] Vancomycin Random Dose amount NOT REPORTED [place] Vancomycin Random Time last dose NOT REPORTED [place] Vancomycin Rm 17.2 ug/mL [place], [place] Vancomycin,Randomon 07-07-19 20 Vancomycin 17.2 ug/mL Normal [facility] Comment on above: Result Comment: High er trough serum vancomycin concentrations of 15-20 ug/mL are recommended for complicated infections such as bacteremia, endocarditis, osteomyelitis, meningitis, and hospital acquired pneumonia. Performed By: #### C DP, PFA, CP, GLYHGB #### [facility] [employer] [address] [place] [address] [phone] Corrosion Control Specialist: Savage Jacob MD Date last dose, NOT REPORTED Normal [facility] Comment on above: Performed By: #### C DP, PFA, CP, GLYHGB #### [facility] [employer] [address] [place] [address] [phone] Corrosion Control Specialist: Savage Jacob MD Dose amount, NOT REPORTED Normal [facility] Comment on above: Performed By: #### C DP, PFA, CP, GLYHGB #### [facility] [employer] [address] [place] [phone] Corrosion Control Specialist: Savage Jacob MD Time last dose, NOT REPORTED Normal [facility] Comment on above: Performed By: #### C DP, PFA, CP, GLYHGB #### [address] [place] [address] Corrosion Control Specialist: Savage Jacob MD XR CHEST PORTABLEon 07-07-19 XR CHEST PORTABLE EXAMINATION: ONE XRAY VIEW OF THE CHEST 07/07/2019 6:15 am COMPARISON: July 06, 2019 HISTORY: ORDERING SYSTEM PROVIDED HISTORY: trend for improvement of pulm. edema TECHNOLOGIST PROVIDED HISTORY: trend for improvement of pulm. edema Reason for Exam: pulmonary edema Acuity: Unknown Type of Exam: Unknown Relevant Medical/Surgical History: port ap upright FINDINGS: Endotracheal tube with the tip at the level of the clavicles. Enteric tube with the tip within the stomach. Right subclavian central venous catheter with the tip near the distal SVC. Persistent bilateral lung opacities. Cardiomegaly. Sternotomy. Aortic valve replacement. Mild pulmonary edema. IMPRESSION: Mild pulmonary edema. Bilateral lung opacities are nonspecific but likely pleural effusions and atelectasis. Interpreted by: Jesús Clemons MD Signed by: Jesús Clemons MD 07/07/19 Final result Normal [place] TETO SCREEN WITH REFLEXon Nuclear Ab IF (S) [Titer] Negative NEGATIVE [facility], [place] TETO Screenon 07-06-2019 TETO Screen Negative Normal NEG [facility] Comment on above: Result Comment: This test was run on the [employer] TETO test system. The system provides ten test results (HEp-2NA, dsDNA, SSA, SSB, Sm, HAZARDOUS MATERIALS ANALYST, Scl-70, Alberta-1, Centromere and Histone analytes) from a single patient sample. A negative TETO screen indicates that the specimen was negative for all ten markers. Performed By: #### C 3, C4, IFX, ANASCX, PE ####[id number] [place] [address] Lab Director: Savage Jacob MD Arterial Blood Gas, POCon Graham Test NOT REPORTED [place], [place] FIO2 50.0 [place] Mode CPAP/PS [place] Negative Base Excess, Art 2 [place] O2 Device/Flow/% Adult Ventilator [place] POC HCO3 24.6 mmol/L 21 - 28 mmol/L [place] POC O2 SAT 97 % 94 - 98 % [place] POC pCO2 49.2 High [place] POC pCO2 Temp NOT REPORTED mm Hg [place] POC pH 7.306 Low [place] POC pH Temp NOT REPORTED [place] POC PO2 96.0 [place] POC pO2 Temp NOT REPORTED mm Hg [place] Positive Base Excess, Art NOT REPORTED [place] Pt Temp NOT REPORTED [place] Sample Site Arterial Line [place] TCO2 (calc), Art 26 mmol/L 22 - 29 mmol/L [place] Graham Test NOT REPORTED [place] FIO2 60.0 [place] Mode SIMV(PRVC)+ PS [place] Negative Base Excess, Art 3 High [place] O2 Device/Flow/% Adult Ventilator [place] POC HCO3 22.0 mmol/L 21 - 28 mmol/L [place] POC O2 SAT 99 % High 94 - 98 % [place] POC pCO2 37.0 [place] POC pCO2 Temp NOT REPORTED mm Hg [place] POC pH 7.383 [place] POC pH Temp NOT REPORTED [place], [place] POC PO2 123.9 High [place] POC pO2 Temp NOT REPORTED mm Hg [place] Positive Base Excess, Art NOT REPORTED [place] Pt Temp NOT REPORTED [place] Sample Site Arterial Line [place] TCO2 (calc), Art 23 mmol/L 22 - 29 mmol/L [place] Graham Test NOT REPORTED [place] FIO2 60.0 [place] Interpretation and review of laboratory results Abnormal [place] Mode SIMV(PRVC)+ PS [place] Negative Base Excess, Art 4 High [place] O2 Device/Flow/% Adult Ventilator [place] POC HCO3 22.2 mmol/L 21 - 28 mmol/L [place] POC O2 SAT 97 % 94 - 98 % [place] POC pCO2 47.9 [place] POC pCO2 Temp NOT REPORTED mm [place] POC pH 7.274 Low [place] POC pH Temp NOT REPORTED [place] POC PO2 100.1 [place] POC pO2 Temp NOT REPORTED mm Hg [place] Positive Base Excess, Art NOT REPORTED [place] Pt Temp NOT REPORTED [place] Sample Site Arterial Line [place] TCO2 (calc), Art 24 mmol/L 22 - 29 mmol/L [place] Graham Test NOT REPORTED [place] FIO2 60.0 [place] Interpretation and review of laboratory results Abnormal [place] Mode SIMV(PRVC)+ PS [place] Negative Base Excess, Art 2 [place] O2 Device/Flow/% Adult Ventilator [place] POC HCO3 23.9 mmol/L 21 - 28 mmol/L [place] POC O2 SAT 97 % 94 - 98 % [place] POC pCO2 45.8 [place] POC pCO2 Temp NOT REPORTED mm Hg [place] POC pH 7.325 Low [place] POC pH Temp NOT REPORTED [facility] [place] P[place] PO2 103.5 [place] POC pO2 Temp NOT REPORTED mm Hg [place] Positive Base Excess, Art NOT REPORTED [place] Pt Temp NOT REPORTED [place] Sample Site Arterial Line [place] TCO2 (calc), Art 25 mmol/L 22 - 29 mmol/L [place] Graham Test NOT REPORTED [place] FIO2 50.0 [place] Mode SIMV(PRVC)+ PS [place] Negative Base Excess, Art 7 High [place] O2 Device/Flow/% Adult Ventilator [place] POC HCO3 19.7 mmol/L Low 21 - 28 mmol/L [place] POC O2 SAT 93 % Low 94 - 98 % [place] POC pCO2 43.7 [place] POC pCO2 Temp NOT REPORTED mm [place] POC pH 7.261 Low [place] POC pH Temp NOT REPORTED [place] POC PO2 77.6 Low [place] POC pO2 Temp NOT REPORTED mm Hg [place] Positive Base Excess, Art NOT REPORTED [place] Pt Temp NOT REPORTED [place] Sample Site Arterial Line [place] TCO2 (calc), Art 21 mmol/L Low 22 - 29 mmol/L [place] Graham Test NOT APPLICABLE [place] FIO2 50.0 [place] Interpretation and review of laboratory results Abnormal [place] Mode CPAP/PS [place] Negative Base Excess, Art 6 High [place] O2 Device/Flow/% Adult Ventilator [place] POC HCO3 20.4 mmol/L Low 21 - 28 mmol/L [place] POC O2 SAT 97 % 94 - 98 % [place] POC pCO2 40.7 [place] POC pCO2 Temp NOT REPORTED mm [facility] [place] [place] [facility] pH 7.307 Low [place] POC pH Temp NOT REPORTED [place] POC PO2 96.7 [place] POC pO2 Temp NOT REPORTED mm Hg [place] Positive Base Excess, Art NOT REPORTED [place] Pt Temp NOT REPORTED [place] Sample Site Arterial Line [place] TCO2 (calc), Art 22 mmol/L 22 - 29 mmol/L [place] Basic Metabolic Panelon 06-23 Anion gap [Moles/Vol] 15 mmol/L 9 - 17 mmol/L [place] Bun/Cre Ratio NOT REPORTED [place] Calcium [Mass/Vol] 8.2 mg/dL Low 8.6 - 10. 4 mg/dL [place] Chloride [Moles/Vol] 108 mmol/L High 98 - 10 7 mmol/L [place] CO2 [Moles/Vol] 21 mmol/L 20 - 31 mmol/L [place] Creatinine [Mass/Vol] 1.77 mg/dL High 0.5 - 0.9 mg/dL [place] GFR 34 mL/min Low >60 [place], [place] GFR Comment [place] GFR Non- 28 mL/min Low >60 [place] GFR Staging NOT REPORTED [place], [place] Glucose [Mass/Vol] 183 mg/dL High 70 - 99 mg/dL [place], [place] Interpretation and review of laboratory results Abnormal [place] Potassium [Moles/Vol] 4.0 mmol/L 3.7 - 5.3 mmol/L [place] Sodium [Moles/Vol] 144 mmol/L 135 - 144 mmol/L [place] Urea nitrogen [Mass/Vol] 49 mg/dL High 8 - 23 mg/dL [place] Bun/Cre Ratio NOT REPORTED [place] GFR 35 mL/min Low >60 [place], [place] GFR Comment [place] GFR Non- 29 mL/min Low >60 [place] GFR Staging NOT REPORTED [place] Interpretation and review of laboratory [facility] Profon 07-06 (cont.) Normal [facility] Comment on above: Result Comment: Aver age GFR for 70 or more years old: 75 mL/min/1.73sq m Chronic Kidney Disease: <60 mL/min/1.73sq m Kidney failure: <15 mL/min/1.73sq m eGFR calculated using average adult body mass. Additional eGFR calculator available at: http://[email or web address]_crcl_2012.htm Performed By: #### T YS #### [address] [address] Corrosion Control Specialist: Savage Jacob MD Performed By: #### C BC, PT, BMP, MG, VNCR, LIVP ####[address] [address] Lab Director: Savage Jacob MD Anion gap [Moles/Vol] 15 mmol/L Normal 9-17 [facility] Comment on above: Performed By: #### T YS #### [address] [address] Corrosion Control Specialist: Savage Jacob MD Calcium [Mass/Vol] 8.2 mg/dL Low 8.6-10.4 [facility] Comment on above: Performed By: #### T YS #### [facility] [employer] [address] [place] [phone] Corrosion Control Specialist: Savage Jacob MD Chloride [Moles/Vol] 108 mmol/L High 98-107 [facility] Comment on above: Performed By: #### T YS #### [facility] [employer] [address] [place] [address] Corrosion Control Specialist: Savage Jacob MD CO2 [Moles/Vol] 21 mmol/L Normal 20-31 [facility] Comment on above: Performed By: #### T YS #### [address] [address] Corrosion Control Specialist: Savage Jacob MD Creatinine [Mass/Vol] 1.77 mg/dL High 0.50-0.90 [facility] Comment on above: Performed By: #### T YS #### [address] [address] Corrosion Control Specialist: Savage Jacob MD GFR, Amer 34 mL/min Low >60 [facility] Comment on above: Performed By: #### T YS #### [address] [address] Corrosion Control Specialist: Savage Jacob MD GFR,non Amer 28 mL/min Low >60 [facility] Comment on above: Performed By: #### T YS #### [address] [address] Corrosion Control Specialist: Savage Jacob MD Glucose [Mass/Vol] 183 mg/dL High 70-99 [facility] Comment on above: Performed By: #### T YS #### [address] [address] Corrosion Control Specialist: Savage Jacob MD Potassium [Moles/Vol] 4.0 mmol/L Normal 3.7-5.3 [facility] Comment on above: Performed By: #### T YS #### [address] [address] Corrosion Control Specialist: Savage Jacob MD Sodium [Moles/Vol] 144 mmol/L Normal 135-144 [facility] Comment on above: Performed By: #### T YS #### [address] [address] Corrosion Control Specialist: Savage Jacob MD Urea nitrogen [Mass/Vol] 49 mg/dL High 8-23 [facility] Comment on above: Performed By: #### T YS #### [facility] [address] [place] [address] Corrosion Control Specialist: Savage Jacob MD BUN/CRE Ratio NOT REPORTED Normal 9-20 [facility] Comment on above: Performed By: #### T YS #### [facility] [address] [place] [address] Corrosion Control Specialist: Savage Jacob MD Staging: NOT REPORTED Normal [facility] Comment on above: Performed By: #### T YS #### [address] [address] Corrosion Control Specialist: Savage Jacob MD GFR, Amer 35 mL/min Low >60 [facility] Comment on above: Performed By: #### C BC, PT, BMP, MG, VNCR, LIVP ####[facility] [place] [address] Lab Director: Savage Jacob MD GFR,non Amer 29 mL/min Low >60 [facility] Comment on above: Performed By: #### C BC, PT, BMP, MG, VNCR, LIVP ####[facility] [address] [place] [address] Lab Director: Savage Jacob MD BUN/CRE Ratio NOT REPORTED Normal 9-20 [facility] Comment on above: Performed By: #### C BC, PT, BMP, MG, VNCR, LIVP ####[facility] [address] [place] [address] Lab Director: Savage Jacob MD Staging: NOT REPORTED Normal [facility] Comment on above: Performed By: #### C BC, PT, BMP, MG, VNCR, LIVP ####[facility] [address] [place] [address] Lab Director: aSvage Jacob MD Anion gap [Moles/Vol] 17 mmol/L Normal 9-17 [place] Comment on above: Performed By: #### C BC, PT, BMP, MG, VNCR, LIVP ####[facility] [address] [place] [address] Lab Director: Savage Jacob MD Calcium [Mass/Vol] 8.3 mg/dL Low 8.6-10.4 [place] Comment on above: Performed By: #### C BC, PT, BMP, MG, VNCR, LIVP ####[facility] [address] [place] [address] Lab Director: Savage Jacob MD Chloride [Moles/Vol] 109 mmol/L High 98-107 [place] Comment on above: Performed By: #### C BC, PT, BMP, MG, VNCR, LIVP ####[facility] [address] [place] [address] Lab Director: Savage Jacob MD CO2 [Moles/Vol] 18 mmol/L Low 20-31 [place] Comment on above: Performed By: #### C BC, PT, BMP, MG, VNCR, LIVP ####[facility] [address] [place] [address] Lab Director: Savage Jacob MD Creatinine [Mass/Vol] 1.76 mg/dL High 0.50-0.90 [place] Comment on above: Performed By: #### C BC, PT, BMP, MG, VNCR, LIVP ####[facility] [address] [place] [address] Lab Director: Savage Jacob MD Glucose [Mass/Vol] 212 mg/dL High 70-99 [place] Comment on above: Performed By: #### C BC, PT, BMP, MG, VNCR, LIVP ####[facility] [address] [place] [address] Lab Director: Savage Jacob MD Potassium [Moles/Vol] 4.1 mmol/L Normal 3.7-5.3 [place] Comment on above: Performed By: #### C BC, PT, BMP, MG, VNCR, LIVP ####[facility] [address] [place] [address] Lab Director: Savage Jacob MD Sodium [Moles/Vol] 144 mmol/L Normal 135-144 [place] Comment on above: Performed By: #### C BC, PT, BMP, MG, VNCR, LIVP ####[facility] [address] [place] [address] lab Director: Savage Jacob MD Urea nitrogen [Mass/Vol] 47 mg/dL High 8-23 [place] Comment on above: Performed By: #### C BC, PT, BMP, MG, VNCR, LIVP ####[facility] [address] [place] [address] Lab Director: Savage Jacob MD CBCon 07-06-2019 Erythrocyte distribution width (RBC) [Ratio] 15.8 % High 11.8-14.4 [facility] Comment on above: Performed By: #### C BC, PT, BMP, MG, VNCR, LIVP ####[facility] [address] [place] [address] Lab Director: Savage Jacob MD Hematocrit (Bld) [Volume fraction] 26.6 % Low 36.3-47.1 [facility] Comment on above: Performed By: #### C BC, PT, BMP, MG, VNCR, LIVP ####[facility] [address] [place] [address] Lab Director: Savage Jacob MD Hemoglobin (Bld) [Mass/Vol] 8.4 g/dL Low 11.9-15.1 [facility] Comment on above: Performed By: #### C BC, PT, BMP, MG, VNCR, LIVP ####[facility] [address] Lab Director: Savage Jacob MD MCH (RBC) [Entitic mass] 28.1 pg Normal 25.2-33.5 [facility] Comment on above: Performed By: #### C BC, PT, BMP, MG, VNCR, LIVP ####[address] [phone] Director: Savage Jacob MD MCHC (RBC) [Mass/Vol] 31.6 g/dL Normal 28.4-34.8 [facility] Comment on above: Performed By: #### C BC, PT, BMP, MG, VNCR, LIVP ####[address] [address])[phone] Director: Savage Jacob MD MCV (RBC) [Entitic vol] 89.0 fL Normal 82.6-102.9 [facility] Comment on above: Performed By: #### C BC, PT, BMP, MG, VNCR, LIVP ####[address] [address])[phone] Director: Savage Jacob MD NRBC Automated 0.2 per 100 WBC High 0.0 [facility] Comment on above: Performed By: #### C BC, PT, BMP, MG, VNCR, LIVP ####[address] [phone] Director: Savage Jacob MD Platelet mean volume (Bld) [Entitic vol] 10.5 fL Normal 8.1-13.5 [facility] Comment on above: Performed By: #### C BC, PT, BMP, MG, VNCR, LIVP ####[address] [phone] Director: Savage Jacob MD Platelets (Bld) [#/Vol] 96 10*3/uL Low 138-453 [facility] Comment on above: Performed By: #### C BC, PT, BMP, MG, VNCR, LIVP ####[facility] [address] [place], [place] [phone] Lab Director: Savage Jacob MD RBC (Bld) [#/Vol] 2.99 10*6/uL Low 3.95-5.11 [facility] Comment on above: Performed By: #### C BC, PT, BMP, MG, VNCR, LIVP ####[facility] [address] [place], [place] [phone] lab Director: Savage Jacob MD WBC (Bld) [#/Vol] 11.6 10*3/uL High 3.5-11.3 [facility] Comment on above: Performed By: #### C BC, PT, BMP, MG, VNCR, LIVP ####[facility] [address] [place] [address] lab Director: Savage Jacob MD Erythrocyte distribution width (RBC) [Ratio] 15.8 % High 11.8 - 14.4 % [place] Hematocrit (Bld) [Volume fraction] 26.6 % Low 36.3 - 47.1 % [place] Hemoglobin (Bld) [Mass/Vol] 8.4 g/dL Low 11.9 - 15.1 g/dL [place] Interpretation and review of laboratory results Abnormal [place] MCH (RBC) [Entitic mass] 28.1 pg 25.2 - 33.5 pg [place] MCHC (RBC) [Mass/Vol] 31.6 g/dL 28.4 - 34.8 g/dL [place] MCV (RBC) [Entitic vol] 89.0 fL 82.6 - 102.9 fL [place] Platelet mean volume (Bld) [Entitic vol] 10.5 fL 8.1 - 13.5 fL [place] Platelets (Bld) [#/Vol] 96 10*3/uL Low [place] RBC (Bld) [#/Vol] 2.99 10*6/uL Low 3.95 - 5.1 1 m/uL [place] WBC (Bld) [#/Vol] 11.6 10*3/uL High [place] WBC (Bld) [#/Vol] 0.2 10*3/uL High 0.0 per 10 0 WBC [place], [place] CT HEAD WO CONTRASTon 2019 CT HEAD WO CONTRAST EXAMINATION: CT OF THE HEAD WITHOUT CONTRAST 07/06/2019 5:49 pm TECHNIQUE: CT of the head was performed without the administration of intravenous contrast. Dose modulation, iterative reconstruction, and/or weight based adjustment of the mA/kV was utilized to reduce the radiation dose to as low as reasonably achievable. COMPARISON: None. HISTORY: ORDERING SYSTEM PROVIDED HISTORY: baseline neuro changes TECHNOLOGIST PROVIDED HISTORY: baseline neuro changes Reason for Exam: baseline neuro changes FINDINGS: BRAIN/VENTRICLES: There is no acute intracranial hemorrhage, mass effect or midline shift. No abnormal extra-axial fluid collection. There is loss of gunn-white differentiation in the right posterior temporal lobe with adjacent edema. 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 No significant mass effect. No effacement of the adjacent posterior horn of the lateral ventricle. ORBITS: The visualized portion of the orbits demonstrate no acute abnormality. SINUSES: Air-fluid levels in the sphenoid sinuses are likely related to endotracheal intubation. SOFT TISSUES/SKULL: No acute abnormality of the visualized skull or soft tissues. IMPRESSION: 1. Loss of gunn-white differentiation in the right posterior temporal lobe may represent subacute infarct. This could be better characterized with MRI if this has not been evaluated previously. Findings were discussed with Dr. Welch at 6:32 pm on 07/06/2019. Interpreted by: Aliyah Das MD Signed by: Aliyah Das MD 07/06/19 Final result Normal [facility], [facility], [facility], [place] EKG 12 [place] 07-06-2019 Atrial Rate [address] [facility], [place] Atrial Rate [address] [facility] P [place] [address] [facility], [place] P-R Interval 150 ms [facility], [place] Q-T Interval 530 ms [facility], [place] Q-T Interval 414 ms [facility], [place] QRS Duration 102 ms [facility], [place] QRS Duration 108 ms [facility], [place] QTc Calculation (Bazett) [address] [facility], [place] QTc Calculation (Bazett) [address] [facility], [place] R [place] [address] [facility], [place] R [place] [address] [facility], [place] T [place] -[address] [facility], [place] Ventricular Rate 98 BPM [facility] [place], [place] Ventricular [place] 58 BPM [facility] [place] Atrial Rate [address] [facility], [place] P [place] [address] [facility], [place] P-R Interval 156 ms [facility], [place] Q-T Interval 464 ms [facility], [place] QRS Duration 90 ms [facility], [place] QTc Calculation (Bazett) [address] [facility], [place] R [place] [address] [facility], [place] Ventricular Rate 71 BPM [facility]- [place], [place] Electrophoresis Protein, Ser um without Reflex to Immunofixationon 07-06-2019 Albumin % 76 % High 45 - 65 % [place] Albumin [Mass/Vol] 3.6 g/dL 3.2 - 5.2 g/dL [place] Alpha 1 % 4 % 3 - 6 % [place] Alpha 2 % 8 % 6 - 13 % [place] Towue-6-Axqbebpc 0.2 g/dL 0.1 - 0.4 g/dL [facility], [place] Addtu-2-Fvcpjmhn 0.4 g/dL Low 0.5 - 0.9 g/dL [place] Beta Globulin 0.3 g/dL Low 0.5 - 1.1 g/dL [place] Beta Percent 6 % Low 11 - 19 % [facility], [place] Gamma Globulin 0.3 g/dL Low 0.5 - 1.5 g/dL [place] Gamma Globulin % 6 % Low 9 - 20 % [facility], [place] Interpretation and review of laboratory results Abnormal [place] Pathologist Cyto stain Nom (Cvx/Vag) [ID] ELECTRONICALLY SIGNED. LOKI FRANCISCO M.D. [place] Protein [Mass/Vol] 4.7 g/dL Low 6.4 - 8.3 g/dL [place] Protein Electrophoresis, Serum DECREASED ALPHA 2 GLOBULIN. MAY BE OBSERVED IN A VARIETY OF CONDITIONS, e.g. HEPATIC DISEASE, ANEMIAS, AND HEMOLYSIS. [place] Total Prot. Sum 4.8 g/dL Low 6.3 - 8.2 g/dL [place] Total Prot. Sum,% 100 % 98 - 102 % [place] Hepatic Function Panelon Albumin [Mass/Vol] 3.4 g/dL Low 3.5 - 5.2 g/dL [place] Albumin/Globulin [Mass ratio] 1.9 {ratio} [place] ALP [Catalytic activity/Vol] 37 U/L 35 - 104 U/L [place] ALT [Catalytic activity/Vol] 9 U/L 5 - 33 U/L [place] AST [Catalytic activity/Vol] 38 U/L High <32 [place] Bilirubin Ql (U) 0.30 mg/dL 0.3 - 1.2 mg/dL [place] Bilirubin, Indirect 0.19 mg/dL 0 - 1 mg/dL [place] Bilirubin.direct [Mass/Vol] 0.11 mg/dL <0.31 [place] Globulin NOT REPORTED 1.5 - 3.8 g/dL [place] Interpretation and review of laboratory results Abnormal [place] Protein [Mass/Vol] 5.2 g/dL Low 6.4 - 8.3 g/dL [place] Immunofixation serum profile on 07-06-2019 Pathologist Cyto stain Nom (Cvx/Vag) [ID] ELECTRONICALLY SIGNED. LOKI FRANCISCO M.D. [place], [place] Serum IFX Interp IMMUNOFIXATION IS NEGATIVE FOR MONOCLONAL IMMUNOGLOBULIN. [place] Immunofixation,Bloodon 07-06 IFX - Interpret. IMMUNOFIXATION IS NEGATIVE FOR MONOCLONAL IMMUNOGLOBULIN. Normal [facility] Comment on above: Performed By: #### C 3, C4, IFX, ANASCX, PE ####[facility] [address] [place], [place] [phone] Director: Savage Jacob MD Pathologist Review: ELECTRONICALLY SIGNED. LOKI FRANCISCO M.D. Normal [facility] Comment on above: Performed By: #### C 3, C4, IFX, ANASCX, PE ####[facility] [address] [place] [address] [phone] Director: Savage Jacob MD Liver Profileon 07-06-2019 Albumin [Mass/Vol] 3.4 g/dL Low 3.5-5.2 [facility] Comment on above: Performed By: #### T YS #### [address] [address] Corrosion Control Specialist: Savage Jacob MD Albumin/Globulin [Mass ratio] 1.9 {ratio} Normal 1.0-2.5 [facility] Comment on above: Performed By: #### T YS #### [address] [address] Corrosion Control Specialist: Savage Jacob MD Alkaline Phos 37 U/L Normal 35-104 [facility] Comment on above: Performed By: #### T YS #### [address] [address] Corrosion Control Specialist: Savage Jacob MD ALT [Catalytic activity/Vol] 9 U/L Normal 5-33 [facility] Comment on above: Performed By: #### T YS #### [address] [address] Corrosion Control Specialist: Savage Jacob MD AST [Catalytic activity/Vol] 38 U/L High <32 [facility] Comment on above: Performed By: #### T YS #### [facility] [employer] [address] [place] [address] Corrosion Control Specialist: Savage Jacob MD Bilirubin Ql (U) 0.30 mg/dL Normal 0.3-1.2 [facility] Comment on above: Performed By: #### T YS #### [facility] [employer] [address] [place] [address] Corrosion Control Specialist: Savage Jacob MD Bilirubin, Indirect 0.19 mg/dL Normal 0.00-1.00 [facility] Comment on above: Performed By: #### T YS #### [address] [address] Corrosion Control Specialist: Savage Jacob MD Bilirubin.direct [Mass/Vol] 0.11 mg/dL Normal <0.31 [facility] Comment on above: Performed By: #### T YS #### [address] [address] Corrosion Control Specialist: Savage Jacob MD Protein [Mass/Vol] 5.2 g/dL Low 6.4-8.3 [facility] Comment on above: Performed By: #### T YS #### [address] [address] Corrosion Control Specialist: Savage Jacob MD Globulin (S) [Mass/Vol] NOT REPORTED Normal 1.5-3.8 [facility] Comment on above: Performed By: #### T YS #### [facility] [employer] [address] [place] [address] Corrosion Control Specialist: Savage Jacob MD Magnesiumon 07-06-2019 Magnesium [Mass/Vol] 2.2 mg/dL Normal 1.6-2.6 [place], [place] Comment on above: Performed By: #### T YS #### [facility] [employer] [address] [place] [address] Corrosion Control Specialist: Savage Jacob MD Otheron 07-06-2019 Interpretation and review of laboratory results Abnormal [place] T [place] -36 degrees [place] Interpretation and review of laboratory results Abnormal [place] Interpretation and review of laboratory results Abnormal [place] POC Glucose Fingerstickon Interpretation and review of laboratory results Abnormal [place] POC Glucose 136 mg/dL High 65 - 105 mg/dL [place] POC Glucose 83 mg/dL 65 - 105 mg/dL [place] POC Glucose 65 mg/dL 65 - 105 mg/dL [place] POC Glucose 84 mg/dL 65 - 105 mg/dL [place] POC Glucose 74 mg/dL 65 - 105 mg/dL [place] POCT Glucoseon 07-06-2019 POC Glucose 178 mg/dL High 74 - 100 mg/dL [place] POC Glucose 214 mg/dL High 74 - 100 mg/dL [place] POC Glucose 228 mg/dL High 74 - 100 mg/dL [place] PROTEIN ELECTROPHORESIS, URI NEon 07-06-2019 P E Interpretation, U URINE PROTEIN CONCENTRATION IS ELEVATED. PROTEIN ELECTROPHORESIS DEMONSTRATES INCREASED GLOMERULAR PERMEABILITY. A DECREASE IN TUBULAR FUNCTION CANNOT BE RULED OUT. [place] Pathologist Cyto stain Nom (Cvx/Vag) [ID] ELECTRONICALLY SIGNED. LOKI FRANCISCO M.D. [place] Specimen type Nom (Spec) .URINE [place] Urine Total Protein 37 mg/dL [place] PTon 07-06-2019 INR Coag (PPP) [Relative time] 1.2 {INR} Normal [facility] Comment on above: Result Comment: Therapeutic Range: Moderate Anticoagulant Intensity: INR = 2.0-3.0 High Anticoagulant Intensity: INR = 2.5-3.5 Performed By: #### C BC, PT, BMP, MG, VNCR, LIVP ####[address] [place] [address] [facility] Director: Savage Jacob MD PT Coag (PPP) [Time] 12.1 s High 9.0-12.0 [facility] Comment on above: Performed By: #### C BC, PT, BMP, MG, VNCR, LIVP ####[facility] [address] [place], [place] [phone] lab Director: Savage Jacob MD Prot. Electroph, Blon 2019 Pathologist Review: ELECTRONICALLY SIGNED. LOKI FRANCISCO M.D. [facility] Comment on above: Performed By: #### C 3, C4, IFX, ANASCX, PE ####[address] [place] [address] Lab Director: Savage Jacob MD Prot. Elect-Interp DECREASED ALPHA 2 GLOBULIN. MAY BE OBSERVED IN A VARIETY OF CONDITIONS, e.g. Normal [facility] Comment on above: Result Comment: HEPA TIC DISEASE, ANEMIAS, AND HEMOLYSIS. DECREASED BETA GLOBULINS. MAY BE DUE TO SELECTIVE DECREASE IN TRANSFERRIN, C3, OR BETA LIPOPROTEIN. HYPOGAMMAGLOBULINEMIA IS PRESENT. MAY BE OBSERVED IN VARIETY OF CONDITIONS INCLUDING MALIGNANT LYMPHOPROLIFERATIVE DISEASE (MULTIPLE MYELOMA, LYMPHOMA, etc.), VARIOUS CYTOTOXIC OR IMMUNOSUPPRESSIVE DRUGS (GROUP HOME STEROIDS, etc.), PLASMAPHORESIS, AND SOME IMMUNODEFICIENCY CONDITIONS. IMMUNOFIXATION IS NEGATIVE FOR MONOCLONAL IMMUNOGLOBULIN. Performed By: #### C 3, C4, IFX, ANASCX, PE ####[facility] [address] [place] [address] Lab Director: Savage Jacob MD Albumin [Mass/Vol] 3.6 g/dL Normal 3.2-5.2 [facility] Comment on above: Performed By: #### C 3, C4, IFX, ANASCX, PE ####[facility] [address] [place], [place] [phone] Lab Director: Savage Jacob MD Albumin, % 76 % High 45-65 [facility] Comment on above: Performed By: #### C 3, C4, IFX, ANASCX, PE ####[facility] [address] [place] [address] Lab Director: Savage Jacob MD Kxfko-0-ajsbugppq 0.2 g/dL Normal 0.1-0.[address] [facility] Comment on above: Performed By: #### C 3, C4, IFX, ANASCX, PE ####[address] [phone] Director: Savage Jacob MD Fywzt-1-wlfjhgdzh,% 4 % Normal 3-6 [facility] Comment on above: Performed By: #### C 3, C4, IFX, ANASCX, PE ####[address] [phone] Director: Savage Jacob MD Gocza-7-onmlwgqfg 0.4 g/dL Low 0.5-0.[address] [facility] Comment on above: Performed By: #### C 3, C4, IFX, ANASCX, PE ####[address] [phone] Director: Savage Jacob MD Ullql-3-gasrosazg,% 8 % Normal 6-13 [facility] Comment on above: Performed By: #### C 3, C4, IFX, ANASCX, PE ####[address] [phone] Director: Savage Jacob MD Beta-globulins 0.3 g/dL Low 0.5-1.1 [facility] Comment on above: Performed By: #### C 3, C4, IFX, ANASCX, PE ####[address] [phone] Director: Savage Jacob MD Beta-globulins,% 6 % Low 11-19 [facility] Comment on above: Performed By: #### C 3, C4, IFX, ANASCX, PE ####[facility] [address] [place], [place] [phone] Director: Savage Jacob MD Gamma-globulins 0.3 g/dL Low 0.5-1.5 [facility] Comment on above: Performed By: #### C 3, C4, IFX, ANASCX, PE ####[facility] [address] [place], [place] [phone] Director: Savage Jacob MD Gamma-globulins,% 6 % Low 9-[address] [facility] Comment on above: Performed By: #### C 3, C4, IFX, ANASCX, PE ####[facility] [address] [place], [place] [phone] Director: Savage Jacob MD Total Prot. Sum 4.8 g/dL Low 6.3-8.2 [facility] Comment on above: Performed By: #### C 3, C4, IFX, ANASCX, PE ####[facility] [address] [place], [place] [phone] Director: Savage Jacob MD Total Prot. Sum,% 100 % Normal 98-[address] [facility] Comment on above: Performed By: #### C 3, C4, IFX, ANASCX, PE ####[facility] [address] [place], [place] [phone] Director: Savage Jacob MD Prot. Electroph, Uron 2019 Ur.-Prot.Elect-Inter URINE PROTEIN CONCENTRATION IS ELEVATED. PROTEIN ELECTROPHORESIS DEMONSTRATES Normal [facility] Comment on above: Result Comment: INCR EASED GLOMERULAR PERMEABILITY. A DECREASE IN TUBULAR FUNCTION CANNOT BE RULED OUT. Performed By: #### U A, UMICAO #### [facility] [address] [place] [address] Corrosion Control Specialist: Savage Jacob MD Pathologist Review: ELECTRONICALLY SIGNED. LOKI FRANCISCO M.D. Normal [facility] Comment on above: Performed By: #### U DENIZ Sanabria #### [facility] [address] [place] [address] [phone] Corrosion Control Specialist: Savage Jacob MD Protime-INRon 07-06-2019 INR Coag (PPP) [Relative time] 1.2 {INR} [place] Interpretation and review of laboratory results Abnormal [place] PT Coag (PPP) [Time] 12.1 s High [facility], [place] VANCOMYCIN, RANDOMon 020 Vancomycin Random Date last dose NOT REPORTED [place] Vancomycin Random Dose amount NOT REPORTED [place] Vancomycin Random Time last dose NOT REPORTED [place] Vancomycin Rm 19.2 ug/mL [place], [place] Vancomycin,Randomon 07-06-19 20 Vancomycin 19.2 ug/mL Normal [facility] Comment on above: Result Comment: High er trough serum vancomycin concentrations of 15-20 ug/mL are recommended for complicated infections such as bacteremia, endocarditis, osteomyelitis, meningitis, and hospital acquired pneumonia. Performed By: #### T YS #### [facility] [address] [place] [address] [phone] Corrosion Control Specialist: Savage Jacob MD Date last dose, NOT REPORTED Normal [facility] Comment on above: Performed By: #### T YS #### [facility] [address] [place] [address] [phone] Corrosion Control Specialist: Savage Jacob MD Dose amount, NOT REPORTED Normal [facility] Comment on above: Performed By: #### T YS #### [facility] [address] [place] [phone] Corrosion Control Specialist: Savage Jacob MD Time last dose, NOT REPORTED Normal [facility] Comment on above: Performed By: #### T YS #### [facility] [address] [place] [address] [phone] Corrosion Control Specialist: Savage Jacob MD XR CHEST PORTABLEon 07-06-19 20 XR CHEST PORTABLE EXAMINATION: ONE XRAY VIEW OF THE CHEST 07/06/2019 6:11 am COMPARISON: 05 July 2019 HISTORY: ORDERING SYSTEM PROVIDED HISTORY: s/p CABG, AVR TECHNOLOGIST PROVIDED HISTORY: s/p CABG, AVR Reason for Exam: cabg avr Acuity: Unknown Type of Exam: Unknown Relevant Medical/Surgical History: port ap upright FINDINGS: AP portable view of the chest time stamped at 524 hours demonstrates overlying cardiac monitoring electrodes. Left-sided chest tube terminates in the left apex. Intestinal tube extends to the body of the stomach. Endotracheal tube terminates 3.8 cm above the janes. Right central catheter terminates at the cavoatrial junction. Stable cardiomegaly is noted. Mild vascular congestion is noted with interval development of right effusion with underlying airspace disease right base not excluded. No gross extrapleural air. Prosthetic aortic valve noted. IMPRESSION: Postsurgical changes. Multiple tubes and lines as above. Interval development of right effusion with right basilar airspace disease not excluded. Cardiomegaly and vascular congestion persists. Interpreted by: Ana Grace MD Signed by: Ana Grace MD 07/06/19 Final result Normal [place] AMMONIAon 07-05-2019 Ammonia (P) [Mass/Vol] 26 umol/L 11 - 51 umol/L [place] Ammoniaon 07-05-2019 Ammonia (P) [Mass/Vol] 26 umol/L Normal 11-51 [facility] Comment on above: Performed By: #### U A, UMICAO #### [facility] [employer] [facility] [place] [address] Corrosion Control Specialist: Savage Jacob MD Anion Gap (Calc) POCon 07-05 Anion gap [Moles/Vol] 11 mmol/L 7 - 16 mmol/L [place] Anion gap [Moles/Vol] 13 mmol/L 7 - 16 mmol/L [place] Arterial Blood Gas, POCon Graham Test NOT APPLICABLE [place] FIO2 50.0 [place] Mode [place] Negative Base Excess, Art 2 [place] O2 Device/Flow/% Adult Ventilator [place], [place] POC HCO3 22.7 mmol/L 21 - 28 mmol/L [place] POC O2 SAT 96 % 94 - 98 % [place] POC pCO2 38.3 [place] POC pCO2 Temp NOT REPORTED mm [place] POC pH 7.381 [place] POC pH Temp NOT REPORTED [place], [place] POC PO2 86.4 [place] POC pO2 Temp NOT REPORTED mm Hg [place] Positive Base Excess, Art NOT REPORTED [place] Pt Temp NOT REPORTED [place], [place] Sample Site Arterial Line [place] TCO2 (calc), Art 24 mmol/L 22 - 29 mmol/L [place] Graham Test NOT APPLICABLE [place] FIO2 40.0 [place] Mode [place] Negative Base Excess, Art 3 High [place] O2 Device/Flow/% Adult Ventilator [place] POC HCO3 23.3 mmol/L 21 - 28 mmol/L [place] POC O2 SAT 94 % 94 - 98 % [place] POC pCO2 48.5 High [place] POC pCO2 Temp NOT REPORTED mm Hg [place] POC pH 7.289 Low [place] POC pH Temp NOT REPORTED [place], [place] POC PO2 81.3 Low [place] POC pO2 Temp NOT REPORTED mm Hg [place] Positive Base Excess, Art NOT REPORTED [place] Pt Temp NOT REPORTED [place] Sample Site Arterial Line [place] TCO2 (calc), Art 25 mmol/L 22 - 29 mmol/L [place] BASIC METABOLIC PANELon 02- Anion gap [Moles/Vol] 18 mmol/L High 9 - 17 mmol/L [place] Bun/Cre Ratio NOT REPORTED [facility] [place] [place] Calcium [Mass/Vol] 8.2 mg/dL Low 8.6 - 10. 4 mg/dL [place] Chloride [Moles/Vol] 110 mmol/L High 98 - 10 7 mmol/L [place] CO2 [Moles/Vol] 17 mmol/L Low 20 - 31 mmol/L [place] Creatinine [Mass/Vol] 1.66 mg/dL High 0.5 - 0.9 mg/dL [place] GFR 37 mL/min Low >60 [place], [place] GFR Comment [place] GFR Non- 31 mL/min Low >60 [place] GFR Staging NOT REPORTED [place], [place] Glucose [Mass/Vol] 176 mg/dL High 70 - 99 mg/dL [place], [place] Interpretation and review of laboratory results Abnormal [place] Potassium [Moles/Vol] 4.5 mmol/L 3.7 - 5.3 mmol/L [place] Sodium [Moles/Vol] 145 mmol/L High 135 - 144 mmol/L [place] Urea nitrogen [Mass/Vol] 41 mg/dL High 8 - 23 mg/dL [place] BL GAS,MIX-RUFINO,EXTon 07-05-2 020 HbCO, Mixed, Extended 0.6 % 0 - 5 % [place], [place] Hemoglobin, Mixed, Extended 8.1 g/dL Low 12 - 18 g/dL [place] Interpretation and review of laboratory results Abnormal [place] MetHb, Mixed, Extended 0.6 % 0 - 1.5 % [place] O2 Content, Mixed, Extended 7 [place] O2 Sat, Mixed, Extended 59.4 % Low 60 - 80 % [place] Oxygen Status 40% [place] Basic Metabolic Panelon 06-23 Anion gap [Moles/Vol] 16 mmol/L 9 - 17 mmol/L [place] Bun/Cre Ratio NOT REPORTED [facility] [place] Calcium [Mass/Vol] 8.8 mg/dL 8.6 - 10. 4 mg/dL [place] Chloride [Moles/Vol] 112 mmol/L High 98 - 10 7 mmol/L [place] CO2 [Moles/Vol] 19 mmol/L Low 20 - 31 mmol/L [place] Creatinine [Mass/Vol] 1.81 mg/dL High 0.5 - 0.9 mg/dL [place] GFR 34 mL/min Low >60 [place], [place] GFR Comment [place] GFR Non- 28 mL/min Low >60 [place] GFR Staging NOT REPORTED [place], [place] Glucose [Mass/Vol] 131 mg/dL High 70 - 99 mg/dL [place], [place] Interpretation and review of laboratory results Abnormal [place] Potassium [Moles/Vol] 4.7 mmol/L 3.7 - 5.3 mmol/L [place] Sodium [Moles/Vol] 147 mmol/L High 135 - 144 mmol/L [place] Urea nitrogen [Mass/Vol] 31 mg/dL High 8 - 23 mg/dL [place] Basic Metabolic Profon 07-05 (cont.) Normal [facility] Comment on above: Result Comment: Aver age GFR for 70 or more years old: 75 mL/min/1.73sq m Chronic Kidney Disease: <60 mL/min/1.73sq m Kidney failure: <15 mL/min/1.73sq m eGFR calculated using average adult body mass. Additional eGFR calculator available at: http://www.[employer] [place]/multiple_crcl_2011.htm Performed By: #### B MP ####[facility] [place] [address] lab Director: Savage Jacob MD Anion gap [Moles/Vol] 18 mmol/L High 9-17 [facility] Comment on above: Performed By: #### B MP ####[facility] [place], [place] [phone] Director: Savage Jacob MD Calcium [Mass/Vol] 8.2 mg/dL Low 8.6-10.4 [facility] Comment on above: Performed By: #### B MP ####[facility] [address] [place], [place] [phone] Director: Savage Jacob MD Chloride [Moles/Vol] 110 mmol/L High 98-107 [facility] Comment on above: Performed By: #### B MP ####[facility] [address] [place], [place] [address])[phone] Director: Savage Jacob MD CO2 [Moles/Vol] 17 mmol/L Low 20-31 [facility] Comment on above: Performed By: #### B MP ####[facility] [address] [place] [phone])[phone] Director: Savage Jacob MD Creatinine [Mass/Vol] 1.66 mg/dL High 0.50-0.90 [facility] Comment on above: Performed By: #### B MP ####[facility] [address] [place], [place] [phone] Director: Savage Jacob MD GFR, Amer 37 mL/min Low >60 [facility] Comment on above: Performed By: #### B MP ####[facility] [address] [place], [place] [phone] Director: Savage Jacob MD GFR,non Amer 31 mL/min Low >60 [facility] Comment on above: Performed By: #### B MP ####[facility] [address] [place], [place] [phone] Director: Savage Jacob MD Glucose [Mass/Vol] 176 mg/dL High 70-99 [facility] Comment on above: Performed By: #### B MP ####[facility] [address] [place], [place] [phone] Director: Savage Jacob MD Potassium [Moles/Vol] 4.5 mmol/L Normal 3.7-5.3 [facility] Comment on above: Performed By: #### B MP ####[facility] [place], [place] [phone] Director: Savage Jacob MD Sodium [Moles/Vol] 145 mmol/L High 135-144 [facility] Comment on above: Performed By: #### B MP ####[facility] [place], [place] [phone] Director: Savage Jacob MD Urea nitrogen [Mass/Vol] 41 mg/dL High 8-23 [facility] Comment on above: Performed By: #### B MP ####[facility] [place] [address] [phone] Director: Savage Jacob MD BUN/CRE Ratio NOT REPORTED Normal 9-20 [facility] Comment on above: Performed By: #### B MP ####[facility] [place] [address] [phone] Director: Savage Jacob MD Staging: NOT REPORTED Normal [facility] Comment on above: Performed By: #### B MP ####[address] [phone] Director: Savage Jacob MD (cont.) Normal [facility] Comment on above: Result Comment: Aver age GFR for 70 or more years old: 75 mL/min/1.73sq m Chronic Kidney Disease: <60 mL/min/1.73sq m Kidney failure: <15 mL/min/1.73sq m eGFR calculated using average adult body mass. Additional eGFR calculator available at: http://www.[employer] [place]/multiple_crcl_2012.htm Performed By: #### U A, UMICAO #### [facility] [address] [place] [address] Corrosion Control Specialist: Savage Jacob MD Anion gap [Moles/Vol] 16 mmol/L Normal 9-17 [facility] Comment on above: Performed By: #### U A, UMICAO #### [facility] [address] [place] [address] Corrosion Control Specialist: Savage Jacob MD Calcium [Mass/Vol] 8.8 mg/dL Normal 8.6-10.4 [facility] Comment on above: Performed By: #### U A UMICAO #### [facility] [address] [place] [address] Corrosion Control Specialist: Savage Jacob MD Chloride [Moles/Vol] 112 mmol/L High 98-107 [facility] Comment on above: Performed By: #### U A UMICAO #### [facility] [address] [place] [phone] Corrosion Control Specialist: Savage Jaocb MD CO2 [Moles/Vol] 19 mmol/L Low 20-31 [facility] Comment on above: Performed By: #### U A UMICAO #### [facility] [address] [place] [address] Corrosion Control Specialist: Savage Jacob MD Creatinine [Mass/Vol] 1.81 mg/dL High 0.50-0.90 [facility] Comment on above: Performed By: #### U A, UMICAO #### [facility] [address] [place] [address] Corrosion Control Specialist: Savage Jacob MD GFR, Amer 34 mL/min Low >60 [facility] Comment on above: Performed By: #### U A, UMICAO #### [facility] [address] [place] [address] Corrosion Control Specialist: Savage Jacob MD GFR,non Amer 28 mL/min Low >60 [facility] Comment on above: Performed By: #### U A, MAKAYLAICAO #### [facility] [address] [place] [address] Corrosion Control Specialist: Savage Jacob MD Glucose [Mass/Vol] 131 mg/dL High 70-99 [facility] Comment on above: Performed By: #### U A, UMICAO #### [facility] [address] [place] [address] Corrosion Control Specialist: Savage Jacob MD Potassium [Moles/Vol] 4.7 mmol/L Normal 3.7-5.3 [facility] Comment on above: Performed By: #### U AMAKAYLAICAO #### [facility] [employer] [address] [place] [address] Corrosion Control Specialist: Savage Jacob MD Sodium [Moles/Vol] 147 mmol/L High 135-144 [facility] Comment on above: Performed By: #### U ADENIZ #### [facility] [employer] [address] [place] [address] Corrosion Control Specialist: Saavge Jacob MD Urea nitrogen [Mass/Vol] 31 mg/dL High 8-23 [facility] Comment on above: Performed By: #### U A, UMICAO #### [facility] [address] [place] [address] Corrosion Control Specialist: Savage Jacob MD BUN/CRE Ratio NOT REPORTED Normal 9-20 [facility] Comment on above: Performed By: #### U A, UMICAO #### [facility] [address] [place] [address] Corrosion Control Specialist: Savage Jacob MD Staging: NOT REPORTED Normal [facility] Comment on above: Performed By: #### U A UMICAO #### [facility] Center[facility] [place] [address] Corrosion Control Specialist: Savage Jacob MD Bl Gas,Mix-Rufino,[place] 020 HbCO 0.6 % Normal 0-5.0 [facility] Comment on above: Performed By: #### U A, UMICAO #### [facility] [address] [place] [phone] Corrosion Control Specialist: Savage Jacob MD Hemoglobin (Bld) [Mass/Vol] 8.1 g/dL Low 12.0-18.0 [facility] Comment on above: Performed By: #### U A UMICAO #### [facility] [employer] [address] [place] [phone] Corrosion Control Specialist: Savage Jacob MD MetHb 0.6 % Normal 0.0-1.5 [facility] Comment on above: Performed By: #### U A UMICAO #### [facility] [employer] [address] [place] [address] Corrosion Control Specialist: Savage Jacob MD O2 Content 7 vol % Normal 6-15 [facility] Comment on above: Performed By: #### U A, UMICAO #### [facility] [employer] [address] [place] [address] Corrosion Control Specialist: Savage Jacob MD Oxygen saturation in Blood 59.4 % Low 60-80 [facility] Comment on above: Performed By: #### U A, UMICAO #### [facility] [address] [place] [address] Corrosion Control Specialist: Savage Jacob MD Oxygen Status 40% Normal [facility] Comment on above: Performed By: #### U A, UMICAO #### [facility] [address] [place] [address] Corrosion Control Specialist: Savage Jacob MD C3on 07-05-2019 C3 48 mg/dL Low 90-180 [facility] Comment on above: Performed By: #### C 3, C4, IFX, ANASCX, PE ####[facility] [address] [place], [place] [id number] Lab Director: Savage Jacob MD C3 COMPLEMENTon 07-05-2019 Complement C3 48 mg/dL Low 90 - 180 mg/dL [place], [place] Interpretation and review of laboratory results Abnormal [place] C4on 07-05-2019 C4 11 mg/dL Normal 10-40 [facility] Comment on above: Performed By: #### C 3, C4, IFX, ANASCX, PE ####[facility] [address] [place], [place] [id number] Lab Director: Savage Jacob MD C4 COMPLEMENTon 07-05-2019 Complement C4 11 mg/dL 10 - 40 mg/dL [place], [place] CALCIUM, IONIC (POC)on 07-05 POC Ionized Calcium 1.22 mmol/L 1.15 - 1 .33 mmol/L [place], [place] POC Ionized Calcium 1.27 mmol/L 1.15 - 1 .33 mmol/L [place] CBCon 07-05-2019 Erythrocyte distribution width (RBC) [Ratio] 16.1 % High 11.8-14.4 [facility] Comment on above: Performed By: #### DENIZ Chou #### [facility] [address] [place], [place] [phone] Corrosion Control Specialist: Savage Jacob MD Hematocrit (Bld) [Volume fraction] 25.7 % Low 36.3-47.1 [facility] Comment on above: Performed By: #### DENIZ Chou #### [facility] [address] [place], [place] [phone] Corrosion Control Specialist: Savage Jacob MD Hemoglobin (Bld) [Mass/Vol] 8.4 g/dL Low 11.9-15.1 [facility] Comment on above: Performed By: #### U A, UMICAO #### [address] [address] Corrosion Control Specialist: Savage Jacob MD MCH (RBC) [Entitic mass] 28.8 pg Normal 25.2-33.5 [facility] Comment on above: Performed By: #### U A, UMICAO #### [address] [address] Corrosion Control Specialist: Savage Jacob MD MCHC (RBC) [Mass/Vol] 32.7 g/dL Normal 28.4-34.8 [facility] Comment on above: Performed By: #### U AMARYO #### [address] [address] Corrosion Control Specialist: Savage Jacob MD MCV (RBC) [Entitic vol] 88.0 fL Normal 82.6-102.9 [facility] Comment on above: Performed By: #### U A, MARYO #### [address] [address] Corrosion Control Specialist: Savage Jacob MD NRBC Automated 0.0 per 100 WBC Normal 0.0 [facility] Comment on above: Performed By: #### U A, MAKAYLAICAO #### [address] [address] Corrosion Control Specialist: Savage Jacob MD Platelet mean volume (Bld) [Entitic vol] 10.3 fL Normal 8.1-13.5 [facility] Comment on above: Performed By: #### U AMARYO #### [address] [address] Corrosion Control Specialist: Savage Jacob MD Platelets (Bld) [#/Vol] 78 10*3/uL Low 138-453 [facility] Comment on above: Performed By: #### U ADENIZ #### [facility] [address] [place], [place] [phone] Corrosion Control Specialist: Savage Jacob MD RBC (Bld) [#/Vol] 2.92 10*6/uL Low 3.95-5.11 [facility] Comment on above: Performed By: #### U Daniele, DENIZ #### [facility] [address] [place], [place] [phone] Corrosion Control Specialist: Savage Jacob MD WBC (Bld) [#/Vol] 9.7 10*3/uL Normal 3.5-11.3 [facility] Comment on above: Performed By: #### U DENIZ Sanabria #### [facility] [address] [place], [place] [phone] Corrosion Control Specialist: Savage Jacob MD Erythrocyte distribution width (RBC) [Ratio] 16.1 % High 11.8 - 14.4 % [place] Hematocrit (Bld) [Volume fraction] 25.7 % Low 36.3 - 47.1 % [place] Hemoglobin (Bld) [Mass/Vol] 8.4 g/dL Low 11.9 - 15.1 g/dL [place] Interpretation and review of laboratory results Abnormal [place] MCH (RBC) [Entitic mass] 28.8 pg 25.2 - 33.5 pg [place] MCHC (RBC) [Mass/Vol] 32.7 g/dL 28.4 - 34.8 g/dL [place] MCV (RBC) [Entitic vol] 88.0 fL 82.6 - 102.9 fL [place] Platelet mean volume (Bld) [Entitic vol] 10.3 fL 8.1 - 13.5 fL [place], [place] Platelets (Bld) [#/Vol] 78 10*3/uL Low [place] RBC (Bld) [#/Vol] 2.92 10*6/uL Low 3.95 - 5.1 1 m/uL [place] WBC (Bld) [#/Vol] 9.7 10*3/uL [place] WBC (Bld) [#/Vol] 0.0 10*3/uL 0.0 per 10 0 WBC [place] CHLORIDE (POC)on 07-05-2019 POC Chloride 113 mmol/L High 98 - 107 mmol/L [place] POC Chloride 110 mmol/L High 98 - 107 mmol/L [place] CHLORIDE, URINE, RANDOMon Chloride, Ur <20 mmol/L [place] CREATININE, RANDOM URINEon 0 07-05-2019 Creatinine, Ur 121.8 mg/dL 28 - 217 mg/dL [place] Chloride,Random Uron 020 Cl Conc. <20 Normal [facility] Comment on above: Result Comment: No n ormal range established. Performed By: #### U DENIZ Sanabria #### [facility] [address] [place] [address] Corrosion Control Specialist: Savage Jacob MD Creatinine W/GFR Point of Ca reon 07-05-2019 GFR Comment 34 mL/min Low >60 [place] GFR Comment [place] GFR Non- 28 mL/min Low >60 [place] POC Creatinine 1.78 mg/dL High 0.51 - 1.19 mg/dL [place] GFR Comment 31 mL/min Low >60 [place] GFR Comment [place] GFR Non- 26 mL/min Low >60 [place] POC Creatinine 1.94 mg/dL High 0.51 - 1.19 mg/dL [place] Creatinine,Random Uron 07-05 Creatinine [Mass/Vol] 121.8 mg/dL Normal 28.0-217.0 [facility] Comment on above: Performed By: #### U ADENIZ #### [facility] [address] [place] [address] Corrosion Control Specialist: Savage Jacob MD HEPATITIS PANEL, ACUTEon HAV IgM IA Qn (S) NONREACTIVE NONREACTIVE [facility], [place] Hep B Core Ab, IgM NONREACTIVE NONREACTIVE [facility], [place] Hepatitis B Surface Ag NONREACTIVE NONREACTIVE [facility], [place] Hepatitis C Ab NONREACTIVE NONREACTIVE [facility], [place] Hemoglobin and hematocrit, b loodon 07-05-2019 POC Hematocrit 21 % Low 36 - 46 % [facility], [place] POC Hemoglobin 7.2 g/dL Low 12 - 16 g/dL [facility], [place] POC Hematocrit 23 % Low 36 - 46 % [facility], [place] POC Hemoglobin 7.7 g/dL Low 12 - 16 g/dL [facility], [place] Hepatitis Acute Roro 07-05 Hep A Ab,IgM NONREACTIVE Normal NR [facility] Comment on above: Performed By: #### U Daniele UMLIDIAO #### [address] [phone] Corrosion Control Specialist: Savage Jacob MD Hep B Core Ab,IgM NONREACTIVE Normal NR [facility] Comment on above: Performed By: #### U MARY SanabriaO #### [address] [phone] Corrosion Control Specialist: Savage Jacbo MD Hep B Surf Ag NONREACTIVE Normal NR [facility] Comment on above: Performed By: #### U Daniele UMICAO #### [address] [phone] Corrosion Control Specialist: Savage Jacob MD Hep C Ab NONREACTIVE Normal NR [facility] Comment on above: Result Comment: The hepatitis C procedure used in our laboratory is a Chemiluminescent test specific for three recombinant HCV antigens. A negative anti-HCV result indicates that the antibodies to hepatitis C virus are not present at this time. Individuals with reactive anti-HCV should be considered infected and infectious until proven otherwise. Confirmation of all equivocal or reactive results is recommended by ordering HCV RNA by PCR. Performed By: #### U A UMICAO #### [facility] [address] [place] [address] [phone] Corrosion Control Specialist: Savage Jacob MD K (Potassium)on 07-05-2019 Potassium [Moles/Vol] 4.6 mmol/L Normal 3.7-5.3 [facility] Comment on above: Performed By: #### U A, DENIZ #### [facility] [address] [place], [place] [phone] Corrosion Control Specialist: Savage Jacob MD Lactic Acid, POCon 0 POC Lactic Acid 0.44 mmol/L Low 0.56 - 1.39 mmol/L [place] POC Lactic Acid 0.98 mmol/L 0.56 - 1.39 mmol/L [place] MAGNESIUMon 07-05-2019 Magnesium [Mass/Vol] 2.0 mg/dL 1.6 - 2 .6 mg/dL [place] Magnesiumon 07-05-2019 Magnesium [Mass/Vol] 2.1 mg/dL Normal 1.6-2.6 [facility] Comment on above: Performed By: #### Linda Sanabria, MARYO #### [facility] [address] [place] [address] [phone] Corrosion Control Specialist: Savage Jacob MD Magnesium [Mass/Vol] 2.1 mg/dL 1.6 - 2 .6 mg/dL [place] Magnesium [Mass/Vol] 2.0 mg/dL Normal 1.6-2.6 [facility] Comment on above: Performed By: #### U A, MARYO #### [facility] [address] [place] [phone] Corrosion Control Specialist: Savage Jacob MD Otheron 07-05-2019 Interpretation and review of laboratory results Abnormal [place] Interpretation and review of laboratory results Abnormal [place] POC Glucose Fingerstickon Interpretation and review of laboratory results Abnormal [place] POC Glucose 176 mg/dL High 65 - 105 mg/dL [place] Interpretation and review of laboratory results Abnormal [place] POC Glucose 162 mg/dL High 65 - 105 mg/dL [place] Interpretation and review of laboratory results Abnormal [place] POC Glucose 137 mg/dL High 65 - 105 mg/dL [place] Interpretation and review of laboratory results Abnormal [place] POC Glucose 120 mg/dL High 65 - 105 mg/dL [place] POCT Glucoseon 07-05-2019 POC Glucose 133 mg/dL High 74 - 100 mg/dL [place] POC Glucose 130 mg/dL High 74 - 100 mg/dL [place] POTASSIUMon 07-05-2019 Potassium [Moles/Vol] 4.6 mmol/L 3.7 - 5.3 mmol/L [place] POTASSIUM (POC)on 07-05-2019 POC Potassium 4.5 mmol/L 3.5 - 4.5 mmol/L [place] POC Potassium 4.5 mmol/L 3.5 - 4.5 mmol/L [place] POTASSIUM, URINE, RANDOMon 0 07-05-2019 Potassium, Ur >150.0 mmol/L [place], [place] PREPARE PLATELETS, 1 Product on 07-05-2019 Blood product type Nom (BPU) LkIrPlt PAS [place] Dispense Status TRANSFUSED [place] Transfusion Status OK TO TRANSFUSE [place], [place] Unit Divison 0 [place], [place] Unit Number [id number] [place] PTon 07-05-2019 INR Coag (PPP) [Relative time] 1.1 {INR} Normal [facility] Comment on above: Result Comment: Therapeutic Range: Moderate Anticoagulant Intensity: INR = 2.0-3.0 High Anticoagulant Intensity: INR = 2.5-3.5 Performed By: #### U Daniele, DENIZ #### [facility] [employer] [address] [place], [place] [phone] Corrosion Control Specialist: Savage Jacob MD PT Coag (PPP) [Time] 11.8 s Normal 9.0-12.0 [facility] Comment on above: Performed By: #### U A, MAKAYLAICAO #### [facility] [place] [address] Corrosion Control Specialist: Savage Jacob MD Potassium,Random Uron 2019 K Conc. >150.0 Normal [facility] Comment on above: Result Comment: No n ormal range established. Performed By: #### U A, DENIZ #### [facility] [place] [address] Corrosion Control Specialist: Savage Jacob MD Prot. Electroph, Blon 2019 Protein [Mass/Vol] 4.7 g/dL Low 6.4-8.3 [facility] Comment on above: Performed By: #### C 3, C4, IFX, ANASCX, PE ####[facility] [address] [place] [address] Lab Director: Savage Jacob MD Prot. Electroph, Uron 2019 Protein [Mass/Vol] 37 mg/dL Normal [facility] Comment on above: Performed By: #### U A, DENIZ #### [facility] [address] [place] [address] Corrosion Control Specialist: Savage Jacob MD Type of Specimen .URINE Normal [facility] Comment on above: Performed By: #### U A, MAKAYLAICAElena #### [facility] [place] [address] Corrosion Control Specialist: Savage Jacob MD Protime-INRon 07-05-2019 INR Coag (PPP) [Relative time] 1.1 {INR} [place] PT Coag (PPP) [Time] 11.8 s [place], [place] SODIUM (POC)on 07-05-2019 POC Sodium 147 mmol/L High 138 - 146 mmol/L [place] POC Sodium 146 mmol/L 138 - 146 mmol/L [place] SODIUM, URINE, RANDOMon 06-23 Sodium,Ur <20 mmol/L [place] Sodium, Random Uron 07-05-19 20 Na Conc. Urine <20 Normal [facility] Comment on above: Result Comment: No n ormal range established. Performed By: #### U A, UMICAO #### [facility] [employer] [address] [place], [place] [phone] Corrosion Control Specialist: Savage Jacob MD Surgical Pathologyon 020 Surgical Pathology Report [place] URINALYSIS WITH MICROSCOPICo n 07-05-2019 Amorphous, UA NOT REPORTED None [place] Bacteria, UA NOT REPORTED None [place] Bilirubin Urine Negative NEGATIVE [place] Casts UA HYALINE [place] Casts UA 10 TO 20 [place] Color, UA YELLOW YELLOW [place] Crystals, UA NOT REPORTED None /HPF [place] Epithelial Cells UA 2 TO 5 [place] Glucose, Ur Negative NEGATIVE [place] Interpretation and review of laboratory results Abnormal [place] Ketones Ql (U) MODERATE Abnormal NEGATIVE [place] Leukocyte esterase Test strip Ql (U) Negative NEGATIVE [place] Mucus, UA NOT REPORTED None [place], [place] Nitrite, Urine Negative NEGATIVE [place] Other Observations UA NOT REPORTED NOT REQ. M [place], [place] pH, UA 5.0 [place] Protein, UA 1+ Abnormal NEGATIVE [place] RBC (U) [#/Vol] 2 TO 5 [place] Renal Epithelial, UA NOT REPORTED 0 /HPF [place] Specific [place], UA 1.035 High [place], [place] Trichomonas, UA NOT REPORTED None [facility] [place], [place] Turbidity UA CLEAR CLEAR [place] Urine Hgb Negative NEGATIVE [place] Urobilinogen, Urine Normal Normal [place] WBC, UA 2 TO 5 [place] Yeast, UA NOT REPORTED None [place] US RENAL COMPLETEon 07-05-19 20 US RENAL COMPLETE EXAMINATION: RETROPERITONEAL ULTRASOUND OF THE KIDNEYS AND URINARY BLADDER 07/05/2019 COMPARISON: CT chest from 06/29/2019 HISTORY: ORDERING SYSTEM PROVIDED HISTORY: VIVIAN on CKD TECHNOLOGIST PROVIDED HISTORY: VIVIAN on CKD 68-year-old female with acute kidney injury on chronic kidney disease FINDINGS: Kidneys: Exam is limited due to bowel gas. Right kidney measures 11.9 x 5.6 x 5.8 cm. Right renal cortical thickness measures 1.8 cm. Left kidney measures 12.2 x 5.5 x 4.3 cm. Left renal cortical thickness measures 1.7 cm. No hydronephrosis or perinephric fluid. No echogenic foci with posterior acoustic shadowing to suggest renal calculi. Gross preservation of the bilateral corticomedullary differentiation. Left ureter is not visualized. Proximal right ureter measures 1.3 cm. Prominent right renal pelvis. Equivocal duplicated right-sided collecting system. Bladder: Patient had no urge to void during the examination. Urinary bladder is collapsed as a Fajardo catheter is present. IMPRESSION: 1. Equivocal duplicated right-sided renal collecting system. Prominent right renal pelvis. No overt hydronephrosis. 2. Exam limited due to bowel gas. 3. Patient had no urge to void during the exam. 4. Collapsed urinary bladder with Fajardo catheter present. Interpreted by: Enzo Plascencia MD Signed by: Enzo Plascencia MD 07/05/19 Final result Normal [facility], [place], [place] Urinalysis w/ Microon 2019 Casts LM.LPF (Urine sed) [#/Area] HYALINE Normal 0-2 [facility] Comment on above: Result Comment: 10 20 Performed By: #### DENIZ Chou #### [facility] [place] [address] Corrosion Control Specialist: Savage Jacob MD Epithelial cells LM.HPF (Urine sed) [#/Area] 2 TO 5 Normal 0-5 [facility] Comment on above: Performed By: #### U A, UMICAO #### [facility] [address] [place] [phone] Corrosion Control Specialist: Savage Jacob MD RBC (U) [#/Vol] 2 TO 5 Normal 0-2 [facility] Comment on above: Performed By: #### U A, UMICAO #### [facility] [address] [place] [address] Corrosion Control Specialist: Savage Jacob MD WBC (U) [#/Vol] 2 TO 5 Normal 0-5 [facility] Comment on above: Performed By: #### U A UMICAO #### [facility] [address] [place] [phone] Corrosion Control Specialist: Savage Jacob MD ----- Normal [facility] Comment on above: Performed By: #### U A UMICAO #### [facility] [employer] [address] [place] [address] Corrosion Control Specialist: Savage Jacob MD Acetoacetic Acid,Ur MODERATE Abnormal NEG [facility] Comment on above: Performed By: #### U A UMICAO #### [facility] [employer] [address] [place] [address] Corrosion Control Specialist: Savage Jacob MD Bilirubin, SemiQt,Ur Negative Normal NEG [facility] Comment on above: Performed By: #### U A, UMICAO #### [facility] [address] [place] [phone] Corrosion Control Specialist: Savage Jacob MD Color (U) YELLOW Normal YEL [facility] Comment on above: Performed By: #### U A, UMICAO #### [facility] [address] [place] [phone] Corrosion Control Specialist: Savage Jacob MD Glucose Ql (U) Negative Normal NEG [facility] Comment on above: Performed By: #### U A UMICAO #### [facility] [address] [place] [address] Corrosion Control Specialist: Savage Jacob MD Hemoglobin, Ur Negative Normal NEG [facility] Comment on above: Performed By: #### U A UMICAO #### [facility] [employer] [address] [place] [phone] Corrosion Control Specialist: Savage Jacob MD Leukocyte esterase Test strip Ql (U) Negative Normal NEG [facility] Comment on above: Performed By: #### U A UMICAO #### [address] [address] Corrosion Control Specialist: Savage Jacob MD Nitrite,Ur Negative Normal NEG [facility] Comment on above: Performed By: #### U AMAKAYLAICAO #### [address] [address] Corrosion Control Specialist: Savage Jacob MD pH (U) 5.0 [pH] Normal 5.0-8.0 [facility] Comment on above: Performed By: #### U AMARYO #### [address] [address] Corrosion Control Specialist: Savage Jacob MD Protein Ql (U) 1+ Abnormal NEG [facility] Comment on above: Performed By: #### U AMAKAYLAICAO #### [address] [address] Corrosion Control Specialist: Savage Jacob MD Specific gravity (U) [Rel density] 1.035 High 1.005-1.030 [facility] Comment on above: Performed By: #### U A UMICAO #### [facility] [employer] [address] [place] [address] Corrosion Control Specialist: Savage Jacob MD Turbidity CLEAR Normal CLEAR [facility] Comment on above: Performed By: #### U AMAKAYLAICAO #### [facility] [employer] [address] [place] [address] Corrosion Control Specialist: Savage Jacob MD Urobilinogen,Ur Normal Normal NORM [facility] Comment on above: Performed By: #### U A, UMICAO #### [facility] [address] [place] [phone] Corrosion Control Specialist: Savage Jacob MD Amorphous sediment LM Ql (Urine sed) NOT REPORTED Normal NONE [facility] Comment on above: Performed By: #### U A, UMICAO #### [facility] [employer] [address] [place] [address] Corrosion Control Specialist: Savage Jacob MD Bacteria LM.HPF (Urine sed) [#/Area] NOT REPORTED Normal NONE [facility] Comment on above: Performed By: #### U AMARYO #### [address] [address] Corrosion Control Specialist: Savage Jacob MD Crystals LM Nom (Urine sed) NOT REPORTED Normal NONE [facility] Comment on above: Performed By: #### U AMAKAYLAICAO #### [facility] [employer] [address] [place] [phone] Corrosion Control Specialist: Savage Jacob MD Epithelial, Renal NOT REPORTED Normal 0 [facility] Comment on above: Performed By: #### U A, UMICAO #### [facility] [employer] [address] [place] [address] Corrosion Control Specialist: Savage Jacob MD Mucus Strands NOT REPORTED Normal NONE [facility] Comment on above: Performed By: #### U A, UMICAO #### [facility] [employer] [address] [place] [phone] Corrosion Control Specialist: Savage Jacob MD Other Observations NOT REPORTED Normal NREQ [facility] Comment on above: Performed By: #### U A, UMICAO #### [facility] [address] [place] [address] Corrosion Control Specialist: Savage Jacob MD Trichomonas NOT REPORTED Normal NONE [facility] Comment on above: Performed By: #### U A, UMICAO #### [facility] [address] [place] [address] Corrosion Control Specialist: Savage Jacob MD Yeast LM Ql (Urine sed) NOT REPORTED Normal NONE [facility] Comment on above: Performed By: #### U A, UMICAO #### [facility] [address] [place], [place] [phone] Corrosion Control Specialist: Savage Jacob MD XR CHEST PORTABLEon 07-05-19 XR CHEST PORTABLE EXAMINATION: ONE XRAY VIEW OF THE CHEST 07/05/2019 6:05 am COMPARISON: Chest radiograph performed 07/04/2019. HISTORY: ORDERING SYSTEM PROVIDED HISTORY: s/p CABG, AVR TECHNOLOGIST PROVIDED HISTORY: s/p CABG, AVR FINDINGS: There is mild congestion. There is no effusion. There is no pneumothorax. The mediastinal structures are stable. The upper abdomen is unremarkable. The extrathoracic soft tissues are unremarkable. There is an endotracheal tube and gastric tube in stable position. There is a [place] catheter. There is a right-sided subclavian line in stable position. IMPRESSION: Mild pulmonary congestion with stable support tubes. Interpreted by: Lm Clemente MD Signed by: Lm Clemente MD 07/05/19 Final result Normal [facility], [facility], [place], [place] Anion Gap (Calc) POCon 07-04 Anion gap [Moles/Vol] 11 mmol/L 7 - 16 mmol/L [place] Anion gap [Moles/Vol] 11 mmol/L 7 - 16 mmol/L [facility], [place] Anion gap [Moles/Vol] 15 mmol/L 7 - 16 mmol/L [place] Arterial Blood Gas, POCon Graham Test NOT REPORTED [place] FIO2 40.0 [place] Mode SIMV(PRVC)+ PS [place] Negative Base Excess, Art NOT REPORTED [place] O2 Device/Flow/% Adult Ventilator [place] POC HCO3 27.5 mmol/L 21 - 28 mmol/L [place] POC O2 SAT 93 % Low 94 - 98 % [place] POC pCO2 38.7 [place] P[place] pCO2 Temp NOT REPORTED mm Hg [facility] [place] [place] [facility] pH 7.459 High [place] POC pH Temp NOT REPORTED [facility] [place] POC PO2 64.1 Low [place] POC pO2 Temp NOT REPORTED mm Hg [place] Positive Base Excess, Art 3 [place] Pt Temp NOT REPORTED [place] Sample Site Arterial [place] TCO2 (calc), Art 29 mmol/L 22 - 29 mmol/L [place] Graham Test NOT APPLICABLE [place] FIO2 40.0 [place] Mode PRVC [place] Negative Base Excess, Art NOT REPORTED [place] O2 Device/Flow/% Adult Ventilator [place] POC HCO3 26.9 mmol/L 21 - 28 mmol/L [place] P[place] O2 SAT 99 % High 94 - 98 % [place] pCO2 41.7 [place] pCO2 Temp NOT REPORTED [place] pH 7.417 [place] P[place] pH Temp NOT REPORTED [facility] [place] PO2 145.4 High [place] P[place] pO2 Temp NOT REPORTED mm Hg [place] Positive Base Excess, Art 2 [place] Pt Temp NOT REPORTED [place], [place] Sample Site Arterial Line [place] TCO2 (calc), Art 28 mmol/L 22 - 29 mmol/L [place] Graham Test NOT APPLICABLE [place] FIO2 40.0 [place] Mode PRVC [place] Negative Base Excess, Art NOT REPORTED [place] O2 Device/Flow/% Adult Ventilator [place] P[place] HCO3 24.9 mmol/L 21 - 28 mmol/L [place] POC O2 SAT 100 % High 94 - 98 % [place] P[place] pCO2 39.5 [place] P[place] pCO2 Temp NOT REPORTED mm [place] pH 7.408 [place] P[place] pH Temp NOT REPORTED [place] POC PO2 167.2 High [place] POC pO2 Temp NOT REPORTED mm Hg [place] Positive Base Excess, Art 0 [place] Pt Temp NOT REPORTED [place] Sample Site Arterial Line [place] TCO2 (calc), Art 26 mmol/L 22 - 29 mmol/L [place] BASIC METABOLIC PANELon 06-23 Anion gap [Moles/Vol] 12 mmol/L 9 - 17 mmol/L [place] Bun/Cre Ratio NOT REPORTED [place] Calcium [Mass/Vol] 9.4 mg/dL 8.6 - 10. 4 mg/dL [place] Chloride [Moles/Vol] 114 mmol/L High 98 - 10 7 mmol/L [place] CO2 [Moles/Vol] 23 mmol/L 20 - 31 mmol/L [place] Creatinine [Mass/Vol] 1.56 mg/dL High 0.5 - 0.9 mg/dL [place] GFR 40 mL/min Low >60 [place] GFR Comment [place] GFR Non- 33 mL/min Low >60 [place] GFR Staging NOT REPORTED [place], [place] Glucose [Mass/Vol] 114 mg/dL High 70 - 99 mg/dL [place], [place] Interpretation and review of laboratory results Abnormal [place] Potassium [Moles/Vol] 3.8 mmol/L 3.7 - 5.3 mmol/L [place] Sodium [Moles/Vol] 149 mmol/L High 135 - 144 mmol/L [place] Urea nitrogen [Mass/Vol] 26 mg/dL High 8 - 23 mg/dL [place] Anion gap [Moles/Vol] 13 mmol/L 9 - 17 mmol/L [place] Bun/Cre Ratio NOT REPORTED [place] Calcium [Mass/Vol] 8.6 mg/dL 8.6 - 10. 4 mg/dL [place] Chloride [Moles/Vol] 115 mmol/L High 98 - 10 7 mmol/L [place] CO2 [Moles/Vol] 23 mmol/L 20 - 31 mmol/L [place] Creatinine [Mass/Vol] 1.53 mg/dL High 0.5 - 0.9 mg/dL [place] GFR 41 mL/min Low >60 [place] GFR Comment [place] GFR Non- 34 mL/min Low >60 [place] GFR Staging NOT REPORTED [place] Glucose [Mass/Vol] 111 mg/dL High 70 - 99 mg/dL [place], [place] Interpretation and review of laboratory results Abnormal [place] Potassium [Moles/Vol] 4.0 mmol/L 3.7 - 5.3 mmol/L [place] Sodium [Moles/Vol] 151 mmol/L High 135 - 144 mmol/L [place] Urea nitrogen [Mass/Vol] 25 mg/dL High 8 - 23 mg/dL [place] Basic Metabolic Panelon 06-23 Anion gap [Moles/Vol] 15 mmol/L 9 - 17 mmol/L [place] Bun/Cre Ratio NOT REPORTED [place] Calcium [Mass/Vol] 9.0 mg/dL 8.6 - 10. 4 mg/dL [place] Chloride [Moles/Vol] 114 mmol/L High 98 - 10 7 mmol/L [place] CO2 [Moles/Vol] 23 mmol/L 20 - 31 mmol/L [place] Creatinine [Mass/Vol] 1.39 mg/dL High 0.5 - 0.9 mg/dL [place] GFR 45 mL/min Low >60 [place] GFR Comment [place] GFR Non- 37 mL/min Low >60 [place] GFR Staging NOT REPORTED [place] Glucose [Mass/Vol] 148 mg/dL High 70 - 99 mg/dL [place] Interpretation and review of laboratory results Abnormal [place] Potassium [Moles/Vol] 4.5 mmol/L 3.7 - 5.3 mmol/L [place] Sodium [Moles/Vol] 152 mmol/L High 135 - 144 mmol/L [place] Urea nitrogen [Mass/Vol] 21 mg/dL 8 - 23 mg/dL [place] Basic Metabolic Profon 07-04 Potassium [Moles/Vol] 3.8 mmol/L Normal 3.7-5.3 [facility] Comment on above: Performed By: #### P T, PTT #### [facility] [employer] [address] [place] [phone] Corrosion Control Specialist: Savage Jacob MD (cont.) [facility] Comment on above: Result Comment: Aver age GFR for 70 or more years old: 75 mL/min/1.73sq m Chronic Kidney Disease: <60 mL/min/1.73sq m Kidney failure: <15 mL/min/1.73sq m eGFR calculated using average adult body mass. Additional eGFR calculator available at: http://[email or web address] Performed By: #### P T, PTT #### [facility] [address] [place] [phone] Corrosion Control Specialist: Savage Jacob MD Anion gap [Moles/Vol] 12 mmol/L Normal 9-17 [facility] Comment on above: Performed By: #### P T, PTT #### [facility] [address] [place] [phone] Corrosion Control Specialist: Savage Jacob MD Calcium [Mass/Vol] 9.4 mg/dL Normal 8.6-10.4 [facility] Comment on above: Performed By: #### P T, PTT #### [facility] [address] [place] [phone] Corrosion Control Specialist: Savage Jacob MD Chloride [Moles/Vol] 114 mmol/L High 98-107 [facility] Comment on above: Performed By: #### P T, PTT #### [facility] [address] [place] [phone] Corrosion Control Specialist: Savage Jacob MD CO2 [Moles/Vol] 23 mmol/L Normal 20-31 [facility] Comment on above: Performed By: #### P T, PTT #### [facility] [address] [place] [address] Corrosion Control Specialist: Savage Jacob MD Creatinine [Mass/Vol] 1.56 mg/dL High 0.50-0.90 [facility] Comment on above: Performed By: #### P T, PTT #### [facility] [address] [place] [phone] Corrosion Control Specialist: Savage Jacob MD GFR, Amer 40 mL/min Low >60 [facility] Comment on above: Performed By: #### P T, PTT #### [facility] [address] [place] [address] Corrosion Control Specialist: Savage Jacob MD GFR,non Amer 33 mL/min Low >60 [facility] Comment on above: Performed By: #### P T, PTT #### [facility] [address] [place] [phone] Corrosion Control Specialist: Savage Jacob MD Glucose [Mass/Vol] 114 mg/dL High 70-99 [facility] Comment on above: Performed By: #### P T, PTT #### [address] [address] Corrosion Control Specialist: Savage Jacob MD Sodium [Moles/Vol] 149 mmol/L High 135-144 [facility] Comment on above: Performed By: #### P T, PTT #### [address] [address] Corrosion Control Specialist: Savage Jacob MD Urea nitrogen [Mass/Vol] 26 mg/dL High 8-23 [facility] Comment on above: Performed By: #### P T, PTT #### [address] [address] Corrosion Control Specialist: Savage Jacob MD BUN/CRE Ratio NOT REPORTED Normal 9-20 [facility] Comment on above: Performed By: #### P T, PTT #### [address] [address] Corrosion Control Specialist: Savage Jacob MD Staging: NOT REPORTED Normal [facility] Comment on above: Performed By: #### P T, PTT #### [address] [address] Corrosion Control Specialist: Savage Jacob MD (cont.) Normal [facility] Comment on above: Result Comment: Aver age GFR for 70 or more years old: 75 mL/min/1.73sq m Chronic Kidney Disease: <60 mL/min/1.73sq m Kidney failure: <15 mL/min/1.73sq m eGFR calculated using average adult body mass. Additional eGFR calculator available at: http://[email or web address] [email or web address]_[email or web address] Performed By: #### P T, PTT #### [address] [address] Corrosion Control Specialist: Savage Jacob MD Anion gap [Moles/Vol] 13 mmol/L Normal 9-17 [facility] Comment on above: Performed By: #### P T, PTT #### [facility] [employer] [address] [place] [phone] Corrosion Control Specialist: Savage Jacob MD Calcium [Mass/Vol] 8.6 mg/dL Normal 8.6-10.4 [facility] Comment on above: Performed By: #### P T, PTT #### [facility] [employer] [address] [place] [phone] Corrosion Control Specialist: Savage Jacob MD Chloride [Moles/Vol] 115 mmol/L High 98-107 [facility] Comment on above: Performed By: #### P T, PTT #### [facility] [employer] [address] [place] [address] Corrosion Control Specialist: Savage Jacob MD CO2 [Moles/Vol] 23 mmol/L Normal 20-31 [facility] Comment on above: Performed By: #### P T, PTT #### [address] [address] Corrosion Control Specialist: Savage Jacob MD Creatinine [Mass/Vol] 1.53 mg/dL High 0.50-0.90 [facility] Comment on above: Performed By: #### P T, PTT #### [facility] [employer] [address] [place] [address] Corrosion Control Specialist: Savage Jacob MD GFR, Amer 41 mL/min Low >60 [facility] Comment on above: Performed By: #### P T, PTT #### [facility] [employer] [address] [place] [address]36 Corrosion Control Specialist: Savage Jacob MD GFR,non Amer 34 mL/min Low >60 [facility] Comment on above: Performed By: #### P T, PTT #### [facility] [employer] [address] [place] [address] Corrosion Control Specialist: Savage Jacob MD Glucose [Mass/Vol] 111 mg/dL High 70-99 [facility] Comment on above: Performed By: #### P T, PTT #### [address] [address] Corrosion Control Specialist: Savage Jacob MD Potassium [Moles/Vol] 4.0 mmol/L Normal 3.7-5.3 [facility] Comment on above: Performed By: #### P T, PTT #### [address] [address] Corrosion Control Specialist: Savage Jacob MD Sodium [Moles/Vol] 151 mmol/L High 135-144 [facility] Comment on above: Performed By: #### P T, PTT #### [address] [address] Corrosion Control Specialist: Savage Jacob MD Urea nitrogen [Mass/Vol] 25 mg/dL High 8-23 [facility] Comment on above: Performed By: #### P T, PTT #### [address] [address] Corrosion Control Specialist: Savage Jacob MD BUN/CRE Ratio NOT REPORTED Normal 9-20 [facility] Comment on above: Performed By: #### P T, PTT #### [address] [address] Corrosion Control Specialist: Savage Jacob MD Staging: NOT REPORTED Normal [facility] Comment on above: Performed By: #### P T, PTT #### [address] [address] Corrosion Control Specialist: Savage Jacob MD (cont.) Normal [facility] Comment on above: Result Comment: Aver age GFR for 70 or more years old: 75 mL/min/1.73sq m Chronic Kidney Disease: <60 mL/min/1.73sq m Kidney failure: <15 mL/min/1.73sq m eGFR calculated using average adult body mass. Additional eGFR calculator available at: http://[email or web address] [email or web address]_[email or web address] Performed By: #### C DP, PFA, CP, GLYHGB #### [facility] [address] [place] [phone] Corrosion Control Specialist: Savage Jacob MD Anion gap [Moles/Vol] 15 mmol/L Normal 9-17 [facility] Comment on above: Performed By: #### C DP, PFA, CP, GLYHGB #### [facility] [address] [place] [address] Corrosion Control Specialist: Savage Jacob MD Calcium [Mass/Vol] 9.0 mg/dL Normal 8.6-10.4 [facility] Comment on above: Performed By: #### C DP, PFA, CP, GLYHGB #### [facility] [address] [place] [phone] Corrosion Control Specialist: Savage Jacob MD Chloride [Moles/Vol] 114 mmol/L High 98-107 [facility] Comment on above: Performed By: #### C DP, PFA, CP, GLYHGB #### [facility] [address] [place] [address] Corrosion Control Specialist: Savage Jacob MD CO2 [Moles/Vol] 23 mmol/L Normal 20-31 [facility] Comment on above: Performed By: #### C DP, PFA, CP, GLYHGB #### [facility] [address] [place] [phone] Corrosion Control Specialist: Savage Jacob MD Creatinine [Mass/Vol] 1.39 mg/dL High 0.50-0.90 [facility] Comment on above: Performed By: #### C DP, PFA, CP, GLYHGB #### [facility] [address] [place] [phone] Corrosion Control Specialist: Savage Jacob MD GFR, Amer 45 mL/min Low >60 [facility] Comment on above: Performed By: #### C DP, PFA, CP, GLYHGB #### [facility] [address] [place] [phone] Corrosion Control Specialist: Savage Jacob MD GFR,non Amer 37 mL/min Low >60 [facility] Comment on above: Performed By: #### C DP, PFA, CP, GLYHGB #### [address] [address] Corrosion Control Specialist: Savage Jacob MD Glucose [Mass/Vol] 148 mg/dL High 70-99 [facility] Comment on above: Performed By: #### C DP, PFA, CP, GLYHGB #### [address] [address] Corrosion Control Specialist: Savage Jacob MD Potassium [Moles/Vol] 4.5 mmol/L Normal 3.7-5.3 [facility] Comment on above: Performed By: #### C DP, PFA, CP, GLYHGB #### [address] [address] Corrosion Control Specialist: Savage Jacob MD Sodium [Moles/Vol] 152 mmol/L High 135-144 [facility] Comment on above: Performed By: #### C DP, PFA, CP, GLYHGB #### [address] [address] Corrosion Control Specialist: Savage Jacob MD Urea nitrogen [Mass/Vol] 21 mg/dL Normal 8-23 [facility] Comment on above: Performed By: #### C DP, PFA, CP, GLYHGB #### [address] [address] Corrosion Control Specialist: Savage Jacob MD BUN/CRE Ratio NOT REPORTED Normal 9-20 [facility] Comment on above: Performed By: #### C DP, PFA, CP, GLYHGB #### [address] [address] Corrosion Control Specialist: Savage Jacob MD Staging: NOT REPORTED Normal [facility] Comment on above: Performed By: #### C DP, PFA, CP, GLYHGB #### [facility] [employer] [address] [place] [phone] Corrosion Control Specialist: Savage Jacob MD (cont.) Normal [facility] Comment on above: Result Comment: Aver age GFR for 70 or more years old: 75 mL/min/1.73sq m Chronic Kidney Disease: <60 mL/min/1.73sq m Kidney failure: <15 mL/min/1.73sq m eGFR calculated using average adult body mass. Additional eGFR calculator available at: [email or web address] [email or web address]_[email or web address] Performed By: #### C DP, PFA, CP, GLYHGB #### [address] [address] Corrosion Control Specialist: Savage Jacob MD Anion gap [Moles/Vol] 21 mmol/L High 9-17 [facility] Comment on above: Performed By: #### C DP, PFA, CP, GLYHGB #### [facility] [employer] [address] [place] [address] Corrosion Control Specialist: Savage Jacob MD Calcium [Mass/Vol] 9.3 mg/dL Normal 8.6-10.4 [facility] Comment on above: Performed By: #### C DP, PFA, CP, GLYHGB #### [facility] [employer] [address] [place] [address] Corrosion Control Specialist: Savage Jacob MD Chloride [Moles/Vol] 113 mmol/L High 98-107 [facility] Comment on above: Performed By: #### C DP, PFA, CP, GLYHGB #### [address] [address] Corrosion Control Specialist: Savage Jacob MD CO2 [Moles/Vol] 19 mmol/L Low 20-31 [facility] Comment on above: Performed By: #### C DP, PFA, CP, GLYHGB #### [place] [address] Corrosion Control Specialist: Savage Jacob MD Creatinine [Mass/Vol] 1.35 mg/dL High 0.50-0.90 [facility] Comment on above: Performed By: #### C DP, PFA, CP, GLYHGB #### [address] [address] Corrosion Control Specialist: Savage Jacob MD GFR, Amer 47 mL/min Low >60 [facility] Comment on above: Performed By: #### C DP, PFA, CP, GLYHGB #### [address] [address] Corrosion Control Specialist: Savage Jacob MD GFR,non Amer 39 mL/min Low >60 [facility] Comment on above: Performed By: #### C DP, PFA, CP, GLYHGB #### [place] [address] Corrosion Control Specialist: Savage Jacob MD Glucose [Mass/Vol] 178 mg/dL High 70-99 [facility] Comment on above: Performed By: #### C DP, PFA, CP, GLYHGB #### [address] [address] Corrosion Control Specialist: Savage Jacob MD Potassium [Moles/Vol] 3.9 mmol/L Normal 3.7-5.3 [facility] Comment on above: Performed By: #### C DP, PFA, CP, GLYHGB #### [facility] [address] [place] [phone] Corrosion Control Specialist: Savage Jacob MD Sodium [Moles/Vol] 153 mmol/L High 135-144 [facility] Comment on above: Performed By: #### C DP, PFA, CP, GLYHGB #### [facility] [employer] [address] [place] [address] Corrosion Control Specialist: Savage Jacob MD Urea nitrogen [Mass/Vol] 18 mg/dL Normal 8- [facility] Comment on above: Performed By: #### C DP, PFA, CP, GLYHGB #### [facility] [employer] [address] [place] [phone] Corrosion Control Specialist: Savage Jacob MD BUN/CRE Ratio NOT REPORTED Normal - [facility] Comment on above: Performed By: #### C DP, PFA, CP, GLYHGB #### [facility] [employer] [address] [place] [phone] Corrosion Control Specialist: Savage Jacob MD Staging: NOT REPORTED Normal [facility] Comment on above: Performed By: #### C DP, PFA, CP, GLYHGB #### [address] [address] Corrosion Control Specialist: Savage Jacob MD (cont.) Normal [facility] Comment on above: Result Comment: Aver age GFR for 70 or more years old: 75 mL/min/1.73sq m Chronic Kidney Disease: <60 mL/min/1.73sq m Kidney failure: <15 mL/min/1.73sq m eGFR calculated using average adult body mass. Additional eGFR calculator available at: [email or web address] [email or web address]_[email or web address] Performed By: #### C DP, PFA, CP, GLYHGB #### [facility] [employer] [address] [place] [phone] Corrosion Control Specialist: Savage Jacob MD Anion gap [Moles/Vol] 19 mmol/L High 9-17 [facility] Comment on above: Performed By: #### C DP, PFA, CP, GLYHGB #### [facility] [employer] [address] [place] [address] Corrosion Control Specialist: Savage Jacob MD Calcium [Mass/Vol] 9.8 mg/dL Normal 8.6-10.4 [facility] Comment on above: Performed By: #### C DP, PFA, CP, GLYHGB #### [facility] [employer] [address] [place] [phone] Corrosion Control Specialist: Savage Jacob MD Chloride [Moles/Vol] 113 mmol/L High 98-107 [facility] Comment on above: Performed By: #### C DP, PFA, CP, GLYHGB #### [facility] [employer] [address] [place] [address] Corrosion Control Specialist: Savage Jacob MD CO2 [Moles/Vol] 21 mmol/L Normal 20-31 [facility] Comment on above: Performed By: #### C DP, PFA, CP, GLYHGB #### [facility] [employer] [address] [place] [address] Corrosion Control Specialist: Savage Jacob MD Creatinine [Mass/Vol] 1.16 mg/dL High 0.50-0.90 [facility] Comment on above: Performed By: #### C DP, PFA, CP, GLYHGB #### [facility] [employer] [address] [place] [address] Corrosion Control Specialist: Savage Jacob MD GFR, Amer 56 mL/min Low >60 [facility] Comment on above: Performed By: #### C DP, PFA, CP, GLYHGB #### [facility] [employer] [address] [place] [phone] Corrosion Control Specialist: Savage Jacob MD GFR,non Amer 46 mL/min Low >60 [facility] Comment on above: Performed By: #### C DP, PFA, CP, GLYHGB #### [facility] [employer] [address] [place] [address] Corrosion Control Specialist: Savage Jacob MD Glucose [Mass/Vol] 157 mg/dL High 70-99 [facility] Comment on above: Performed By: #### C DP, PFA, CP, GLYHGB #### [facility] [employer] [address] [place] [address] Corrosion Control Specialist: Savage Jacob MD Potassium [Moles/Vol] 3.6 mmol/L Low 3.7-5.3 [facility] Comment on above: Result Comment: SPEC IMEN SLIGHTLY HEMOLYZED, RESULTS MAY BE ADVERSELY AFFECTED. Performed By: #### C DP, PFA, CP, GLYHGB #### [facility] [employer] [address] [place] [phone] Corrosion Control Specialist: Savage Jacob MD Sodium [Moles/Vol] 153 mmol/L High 135-144 [facility] Comment on above: Performed By: #### C DP, PFA, CP, GLYHGB #### [facility] [employer] [address] [place] [address] Corrosion Control Specialist: Savage Jacob MD Urea nitrogen [Mass/Vol] 16 mg/dL Normal 8-23 [facility] Comment on above: Performed By: #### C DP, PFA, CP, GLYHGB #### [facility] [employer] [address] [place] [phone] Corrosion Control Specialist: Savage Jacob MD Bl Gas,Mix-Rufino,[place] 07-04-2 020 HbCO 0.8 % Normal 0-5.0 [facility] Comment on above: Performed By: #### C DP, PFA, CP, GLYHGB #### [facility] [employer] [address] [place] [phone] Corrosion Control Specialist: Savage Jacob MD Hemoglobin (Bld) [Mass/Vol] 12.6 g/dL Normal 12.0-18.0 [facility] Comment on above: Performed By: #### C DP, PFA, CP, GLYHGB #### [address] [address] Corrosion Control Specialist: Savage Jacob MD MetHb 0.8 % Normal 0.0-1.5 [facility] Comment on above: Performed By: #### C DP, PFA, CP, GLYHGB #### [address] [address] Corrosion Control Specialist: Savage Jacob MD O2 Content 11 vol % Normal 6-15 [facility] Comment on above: Performed By: #### C DP, PFA, CP, GLYHGB #### [address] [address] Corrosion Control Specialist: Savage Jacob MD Oxygen saturation in Blood 65.6 % Normal 60-80 [facility] Comment on above: Performed By: #### C DP, PFA, CP, GLYHGB #### [address] [address] Corrosion Control Specialist: Savage Jacob MD Oxygen Status 40 Normal [facility] Comment on above: Performed By: #### C DP, PFA, CP, GLYHGB #### [address] [address] Corrosion Control Specialist: Savage Jacob MD CALCIUM, IONIC (POC)on 07-04 POC Ionized Calcium 1.19 mmol/L 1.15 - 1 .33 mmol/L [place] POC Ionized Calcium 1.23 mmol/L 1.15 - 1 .33 mmol/L [place] POC Ionized Calcium 1.23 mmol/L 1.15 - 1 .33 mmol/L [place] CALCIUM, IONIZEDon 0 Calcium, Ion 1.26 mmol/L 1.13 - 1.33 mmol/L [place] Calcium, Ion 1.16 mmol/L 1.13 - 1.33 mmol/L [place] CBCon 07-04-2019 Erythrocyte distribution width (RBC) [Ratio] 15.3 % High 11.8-14.4 [facility] Comment on above: Performed By: #### P T, PTT #### [facility] [employer] [address] [place] [phone] Corrosion Control Specialist: Savaeg Jacob MD Hematocrit (Bld) [Volume fraction] 26.4 % Low 36.3-47.1 [facility] Comment on above: Performed By: #### P T, PTT #### [facility] [employer] [address] [place] [phone] Corrosion Control Specialist: Savage Jacob MD Hemoglobin (Bld) [Mass/Vol] 9.1 g/dL Low 11.9-15.1 [facility] Comment on above: Performed By: #### P T, PTT #### [facility] [employer] [address] [place] [phone] Corrosion Control Specialist: Savage Jacob MD MCH (RBC) [Entitic mass] 29.0 pg Normal 25.2-33.5 [facility] Comment on above: Performed By: #### P T, PTT #### [facility] [employer] [address] [place] [address] Corrosion Control Specialist: Savage Jacob MD MCHC (RBC) [Mass/Vol] 34.5 g/dL Normal 28.4-34.8 [facility] Comment on above: Performed By: #### P T, PTT #### [address] [address] Corrosion Control Specialist: Savage Jacob MD MCV (RBC) [Entitic vol] 84.1 fL Normal 82.6-102.9 [facility] Comment on above: Performed By: #### P T, PTT #### [address] [address] Corrosion Control Specialist: Savage Jacob MD NRBC Automated 0.0 per 100 WBC Normal 0.0 [facility] Comment on above: Performed By: #### P T, PTT #### [address] [address] Corrosion Control Specialist: Savage Jacob MD Platelet mean volume (Bld) [Entitic vol] 9.4 fL Normal 8.1-13.5 [facility] Comment on above: Performed By: #### P T, PTT #### [address] [address] Corrosion Control Specialist: Savage Jacob MD RBC (Bld) [#/Vol] 3.14 10*6/uL Low 3.95-5.11 [facility] Comment on above: Performed By: #### P T, PTT #### [address] [address] Corrosion Control Specialist: Savage Jacob MD WBC (Bld) [#/Vol] 8.2 10*3/uL Normal 3.5-11.3 [facility] Comment on above: Performed By: #### P T, PTT #### [address] [address] Corrosion Control Specialist: Savage Jacob MD Erythrocyte distribution width (RBC) [Ratio] 15.3 % High 11.8 - 14.4 % [place] Hematocrit (Bld) [Volume fraction] 26.4 % Low 36.3 - 47.1 % [place] Hemoglobin (Bld) [Mass/Vol] 9.1 g/dL Low 11.9 - 15.1 g/dL [place] Interpretation and review of laboratory results Abnormal [place] MCH (RBC) [Entitic mass] 29.0 pg 25.2 - 33.5 pg [place] MCHC (RBC) [Mass/Vol] 34.5 g/dL 28.4 - 34.8 g/dL [place] MCV (RBC) [Entitic vol] 84.1 fL 82.6 - 102.9 fL [place] Platelet mean volume (Bld) [Entitic vol] 9.4 fL 8.1 - 13.5 fL [place] Platelets (Bld) [#/Vol] 87 10*3/uL Low [place] RBC (Bld) [#/Vol] 3.14 10*6/uL Low 3.95 - 5.1 1 m/uL [place] WBC (Bld) [#/Vol] 0.0 10*3/uL 0.0 per 10 0 WBC [place] WBC (Bld) [#/Vol] 8.2 10*3/uL [place] Erythrocyte distribution width (RBC) [Ratio] 14.7 % High 11.8-14.4 [facility] Comment on above: Performed By: #### C DP, PFA, CP, GLYHGB #### [facility] [employer] [address] [place] [address] Corrosion Control Specialist: Savage Jacob MD Hematocrit (Bld) [Volume fraction] 28.0 % Low 36.3-47.1 [facility] Comment on above: Performed By: #### C DP, PFA, CP, GLYHGB #### [facility] [employer] [address] [place], [place] [phone] Corrosion Control Specialist: Savage Jacob MD Hemoglobin (Bld) [Mass/Vol] 9.5 g/dL Low 11.9-15.1 [facility] Comment on above: Performed By: #### C DP, PFA, CP, GLYHGB #### [facility] [employer] [address] [place] [phone] Corrosion Control Specialist: Savage Jacob MD MCH (RBC) [Entitic mass] 28.5 pg Normal 25.2-33.5 [facility] Comment on above: Performed By: #### C DP, PFA, CP, GLYHGB #### [address] [address] Corrosion Control Specialist: Savage Jacob MD MCHC (RBC) [Mass/Vol] 33.9 g/dL Normal 28.4-34.8 [facility] Comment on above: Performed By: #### C DP, PFA, CP, GLYHGB #### [address] [address] Corrosion Control Specialist: Savage Jacob MD MCV (RBC) [Entitic vol] 84.1 fL Normal 82.6-102.9 [facility] Comment on above: Performed By: #### C DP, PFA, CP, GLYHGB #### [address] [address] Corrosion Control Specialist: Savage Jacob MD NRBC Automated 0.0 per 100 WBC Normal 0.0 [facility] Comment on above: Performed By: #### C DP, PFA, CP, GLYHGB #### [address] [address] Corrosion Control Specialist: Savage Jacob MD Platelet mean volume (Bld) [Entitic vol] 9.3 fL Normal 8.1-13.5 [facility] Comment on above: Performed By: #### C DP, PFA, CP, GLYHGB #### [address] [address] Corrosion Control Specialist: Savage Jacob MD Platelets (Bld) [#/Vol] 51 10*3/uL Low 138-453 [facility] Comment on above: Performed By: #### C DP, PFA, CP, GLYHGB #### [address] [address] Corrosion Control Specialist: Savage Jacob MD RBC (Bld) [#/Vol] 3.33 10*6/uL Low 3.95-5.11 [facility] Comment on above: Performed By: #### C DP, PFA, CP, GLYHGB #### [facility] [employer] [address] [place], [place] [phone] Corrosion Control Specialist: Savage Jacob MD WBC (Bld) [#/Vol] 8.8 10*3/uL Normal 3.5-11.3 [facility] Comment on above: Performed By: #### C DP, PFA, CP, GLYHGB #### [facility] [employer] [address] [place], [place] [phone] Corrosion Control Specialist: Savage Jacob MD Erythrocyte distribution width (RBC) [Ratio] 14.7 % High 11.8 - 14.4 % [place] Hematocrit (Bld) [Volume fraction] 28.0 % Low 36.3 - 47.1 % [place] Hemoglobin (Bld) [Mass/Vol] 9.5 g/dL Low 11.9 - 15.1 g/dL [place] Interpretation and review of laboratory results Abnormal [place] MCH (RBC) [Entitic mass] 28.5 pg 25.2 - 33.5 pg [place] MCHC (RBC) [Mass/Vol] 33.9 g/dL 28.4 - 34.8 g/dL [place] MCV (RBC) [Entitic vol] 84.1 fL 82.6 - 102.9 fL [place] Platelet mean volume (Bld) [Entitic vol] 9.3 fL 8.1 - 13.5 fL [place] Platelets (Bld) [#/Vol] 51 10*3/uL Low [place] RBC (Bld) [#/Vol] 3.33 10*6/uL Low 3.95 - 5.1 1 m/uL [place] WBC (Bld) [#/Vol] 8.8 10*3/uL [place] WBC (Bld) [#/Vol] 0.0 10*3/uL 0.0 per [address] [facility], [place] CBC with Diffon 07-04-2019 Abs. Basophil 0.06 k/uL Normal 0.00-0.20 [facility] Comment on above: Performed By: #### C DP, PFA, CP, GLYHGB #### [address] [address] Corrosion Control Specialist: Savage Jacob MD Abs.Imm.Granulocyte 0.21 k/uL Normal 0.00-0.30 [facility] Comment on above: Performed By: #### C DP, PFA, CP, GLYHGB #### [address] [address] Corrosion Control Specialist: Savage Jacob MD Abs.Neutrophil (Seg) 14.05 k/uL High 1.50-8.10 [facility] Comment on above: Performed By: #### C DP, PFA, CP, GLYHGB #### [address] [address] Corrosion Control Specialist: Savage Jacob MD Basophils/100 WBC (Bld) 0 % Normal 0-2 [facility] Comment on above: Performed By: #### C DP, PFA, CP, GLYHGB #### [address] [address] Corrosion Control Specialist: Savage Jacob MD Eosinophils (Bld) [#/Vol] 0.14 10*3/uL Normal 0.00-0.44 [facility] Comment on above: Performed By: #### C DP, PFA, CP, GLYHGB #### [address] [address] Corrosion Control Specialist: Savage Jacob MD Eosinophils/100 WBC (Bld) 1 % Normal 1-4 [facility] Comment on above: Performed By: #### C DP, PFA, CP, GLYHGB #### [address] [address] Corrosion Control Specialist: Savage Jacob MD Erythrocyte distribution width (RBC) [Ratio] 14.5 % High 11.8-14.4 [facility] Comment on above: Performed By: #### C DP, PFA, CP, GLYHGB #### [place] [address] Corrosion Control Specialist: Savage Jacob MD Hematocrit (Bld) [Volume fraction] 37.0 % Normal 36.3-47.1 [facility] Comment on above: Performed By: #### C DP, PFA, CP, GLYHGB #### [place] [address] Corrosion Control Specialist: Savage Jacob MD Hemoglobin (Bld) [Mass/Vol] 12.8 g/dL Normal 11.9-15.1 [facility] Comment on above: Performed By: #### C DP, PFA, CP, GLYHGB #### [place] [address] Corrosion Control Specialist: Savage Jacob MD Immature granulocytes (Bld) [#/Vol] 1 % High 0 [facility] Comment on above: Performed By: #### C DP, PFA, CP, GLYHGB #### [place] [address] Corrosion Control Specialist: Savage Jacob MD Lymphocytes (Bld) [#/Vol] 1.73 10*3/uL Normal 1.10-3.70 [facility] Comment on above: Performed By: #### C DP, PFA, CP, GLYHGB #### [address] [address] Corrosion Control Specialist: Savage Jacob MD Lymphocytes/100 WBC (Bld) 10 % Low 24-43 [facility] Comment on above: Performed By: #### C DP, PFA, CP, GLYHGB #### [address] [address] Corrosion Control Specialist: Savage Jacob MD MCH (RBC) [Entitic mass] 29.2 pg Normal 25.2-33.5 [facility] Comment on above: Performed By: #### C DP, PFA, CP, GLYHGB #### [address] [address] Corrosion Control Specialist: Savage Jacob MD MCHC (RBC) [Mass/Vol] 34.6 g/dL Normal 28.4-34.8 [facility] Comment on above: Performed By: #### C DP, PFA, CP, GLYHGB #### [address] [address] Corrosion Control Specialist: Savage Jacob MD MCV (RBC) [Entitic vol] 84.3 fL Normal 82.6-102.9 [facility] Comment on above: Performed By: #### C DP, PFA, CP, GLYHGB #### [address] [address] Corrosion Control Specialist: Savage Jacob MD Monocytes (Bld) [#/Vol] 1.07 10*3/uL Normal 0.10-1.20 [facility] Comment on above: Performed By: #### C DP, PFA, CP, GLYHGB #### [address] [address] Corrosion Control Specialist: Savage Jacob MD Monocytes/100 WBC (Bld) 6 % Normal 3-12 [facility] Comment on above: Performed By: #### C DP, PFA, CP, GLYHGB #### [place] [address] Corrosion Control Specialist: Savage Jacob MD Neutrophil (Seg) 82 % High 36-65 [facility] Comment on above: Performed By: #### C DP, PFA, CP, GLYHGB #### [address] [address] Corrosion Control Specialist: Savage Jacob MD NRBC Automated 0.0 per 100 WBC Normal 0.0 [facility] Comment on above: Performed By: #### C DP, PFA, CP, GLYHGB #### [address] [address] Corrosion Control Specialist: Savage Jacob MD Platelet mean volume (Bld) [Entitic vol] 8.9 fL Normal 8.1-13.5 [facility] Comment on above: Performed By: #### C DP, PFA, CP, GLYHGB #### [address] [address] Corrosion Control Specialist: Savage Jacob MD Platelets (Bld) [#/Vol] 75 10*3/uL Low 138-453 [facility] Comment on above: Performed By: #### C DP, PFA, CP, GLYHGB #### [address] [address] Corrosion Control Specialist: Savage Jacob MD RBC (Bld) [#/Vol] 4.39 10*6/uL Normal 3.95-5.11 [facility] Comment on above: Performed By: #### C DP, PFA, CP, GLYHGB #### [address] [address] Corrosion Control Specialist: Savage Jacob MD RBC morphology finding Nom (Bld) ANISOCYTOSIS PRESENT Normal [facility] Comment on above: Performed By: #### C DP, PFA, CP, GLYHGB #### [address] [address] Corrosion Control Specialist: Savage Jacob MD WBC (Bld) [#/Vol] 17.3 10*3/uL High 3.5-11.3 [facility] Comment on above: Performed By: #### C DP, PFA, CP, GLYHGB #### [address] [address] Corrosion Control Specialist: Savage Jacob MD Auto Diff Performed NOT REPORTED Normal [facility] Comment on above: Performed By: #### C DP, PFA, CP, GLYHGB #### [address] [address] Corrosion Control Specialist: Savage Jacob MD Platelets (Bld) [#/Vol] NOT REPORTED Normal [facility] Comment on above: Performed By: #### C DP, PFA, CP, GLYHGB #### [address] [address] Corrosion Control Specialist: Savage Jacob MD WBC Morphology NOT REPORTED Normal [facility] Comment on above: Performed By: #### C DP, PFA, CP, GLYHGB #### [address] [address] Corrosion Control Specialist: Savage Jacob MD CHLORIDE (POC)on 07-04-2019 POC Chloride 114 mmol/L High 98 - 107 mmol/L [place] POC Chloride 114 mmol/L High 98 - 107 mmol/L [place] POC Chloride 113 mmol/L High 98 - 107 mmol/L [place] Calcium, Ionicon 07-04-2019 Calcium [Mass/Vol] 1.26 mmol/L Normal 1.13-1.33 [facility] Comment on above: Performed By: #### P T, PTT #### [address] [address] Corrosion Control Specialist: Savage Jacob MD Calcium [Mass/Vol] 1.16 mmol/L Normal 1.13-1.33 [facility] Comment on above: Performed By: #### P T, PTT #### [facility] [employer] [address] [place] [address] Corrosion Control Specialist: Savage Jacob MD Calcium [Mass/Vol] 1.14 mmol/L Normal 1.13-1.33 [facility] Comment on above: Performed By: #### C DP, PFA, CP, GLYHGB #### [facility] [address] [place], [place] [phone] Corrosion Control Specialist: Savage Jacob MD Calcium [Mass/Vol] 1.32 mmol/L Normal 1.13-1.33 [facility] Comment on above: Performed By: #### C DP, PFA, CP, GLYHGB #### [facility] [address] [place], [place] [phone] Corrosion Control Specialist: Savage Jacob MD Creatinine W/GFR Point of Ca reon 07-04-2019 GFR Comment 43 mL/min Low >60 [facility], [place] GFR Comment [place] GFR Non- 35 mL/min Low >60 [place] POC Creatinine 1.46 mg/dL High 0.51 - 1.19 mg/dL [place] GFR [place] GFR Comment 50 mL/min Low >60 [facility], [place] GFR Non- 41 mL/min Low >60 [place] POC Creatinine 1.27 mg/dL High 0.51 - 1.19 mg/dL [place] GFR Comment [place] GFR Comment 52 mL/min Low >60 [facility], [place] GFR Non- 43 mL/min Low >60 [place] POC Creatinine 1.23 mg/dL High 0.51 - 1.19 mg/dL [place] Cult,Urineon 07-04-2019 Cult,Urine Specimen Description .CATHETERIZED URINE Special Requests NOT REPORTED Culture NO GROWTH Report Status FINAL 07/04/2019 Normal [facility] Comment on above: Performed By: #### P T, PTT #### [facility] [address] [place], [place] [phone] Corrosion Control Specialist: Savage Jacob MD EKG 12 Leadon 07-04-2019 Atrial Rate 75 BPM [facility] [place] 66 degrees [facility] [place] P-R Interval 180 ms [facility] [place] Q-T Interval 548 ms [facility] [place] QRS Duration 136 ms [facility] [place] QTc Calculation (Bazett) 611 ms [facility] [place] -3 degrees [facility] [place] 114 degrees [facility] [place] Ventricular Rate 75 BPM [facility] [facility] [facility] Atrial Rate 80 BPM [facility] [place] 64 degrees [facility] [place] P-R Interval 174 ms [facility] [place] Q-T Interval 524 ms [facility] [place] QRS Duration 132 ms [facility] [place] QTc Calculation (Bazett) 604 ms [facility] [place] 5 degrees [facility] 103 degrees [facility] [place] Ventricular Rate 80 BPM [facility] [place] EKG 12 leadon 07-04-2019 Atrial Rate 72 BPM [facility] [place] 54 degrees [facility] [place] P-R Interval 176 ms [facility] [place] Q-T Interval 500 ms [facility] [place] QRS Duration 124 ms [facility] [place] QTc Calculation (Bazett) 547 ms [facility] [place] -59 degrees [facility] [place] 98 degrees [facility] [place] Ventricular Rate 72 BPM [facility] [place] FFP, Transfuseon 07-04-2019 FFP, Transfuse Unit Number [id number] Blood Component Type Fresh Plasma Unit Division 00 Status of Unit TRANSFUSED Transfusion Status OK TO TRANSFUSE [facility] Comment on above: Performed By: #### P T, PTT #### [facility] [address] [place] [phone] Corrosion Control Specialist: Savage Jacob MD FFP, Transfuse Unit Number [id number] Blood Component Type Fresh Plasma Unit Division 00 Status of Unit TRANSFUSED Transfusion Status OK TO TRANSFUSE [facility] Comment on above: Performed By: #### P T, PTT #### [facility] [address] [place], [place] [phone] Corrosion Control Specialist: Savage Jacob MD Fibrinogenon 07-04-2019 Fibrinogen <80 Critically low 140-420 [facility] Comment on above: Performed By: #### C DP, PFA, CP, GLYHGB #### [facility] [address] [place], [place] [phone] Corrosion Control Specialist: Savage Jacob MD HEMOGLOBIN AND HEMATOCRIT, B [facility] 07-04-2019 Hematocrit (Bld) [Volume fraction] 24.5 % Low 36.3 - 47.1 % [place] Hemoglobin (Bld) [Mass/Vol] 8.3 g/dL Low 11.9 - 15.1 g/dL [place] Interpretation and review of laboratory results Abnormal [place] Hematologyon 07-04-2019 Blood product type Nom (BPU) Fresh Plasma [place] Hemoglobin and hematocrit, b [facility] 07-04-2019 POC Hematocrit 24 % Low 36 - 46 % [place] POC Hemoglobin 8.1 g/dL Low 12 - 16 g/dL [facility] [place] [place] Hematocrit 25 % Low 36 - 46 % [place] POC Hemoglobin 8.5 g/dL Low 12 - 16 g/dL [facility] [place] Hematocrit 25 % Low 36 - 46 % [place] POC Hemoglobin 8.5 g/dL Low 12 - 16 g/dL [place] Hgb/Hcton 07-04-2019 Hematocrit (Bld) [Volume fraction] 24.5 % Low 36.3-47.1 [facility] Comment on above: Performed By: #### P T, PTT #### [facility] [address] [place], [place] [phone] Corrosion Control Specialist: Savage Jacob MD Hemoglobin (Bld) [Mass/Vol] 8.3 g/dL Low 11.9-15.1 [facility] Comment on above: Performed By: #### P T, PTT #### [facility] [address] [place] [address] Corrosion Control Specialist: MD Romero Barahona (Potassium)on 07-04-2019 Potassium [Moles/Vol] 4.4 mmol/L Normal 3.7-5.3 [facility] Comment on above: Performed By: #### P T, PTT #### [facility] [address] [place] [address] Corrosion Control Specialist: Savage Jacob MD LACTIC ACID, WHOLE BLOODon 0 07-04-2019 Lactic Acid, Whole Blood 1.8 mmol/L 0.7 - 2.1 mmol/L [place] Lactic Acid, Whole Blood 2.1 mmol/L 0.7 - 2.1 mmol/L [place] Lactic Acid, POCon 0 POC Lactic Acid 1.70 mmol/L High 0.56 - 1.39 mmol/L [place] POC Lactic Acid 3.63 mmol/L High 0.56 - 1.39 mmol/L [place] POC Lactic Acid 5.10 mmol/L High 0.56 - 1.39 mmol/L [place] Lactic Acid,Whole Blon 07-04 Lactic Acid,Whole Bl 1.8 mmol/L Normal 0.7-2.1 [facility] Comment on above: Performed By: #### P T, PTT #### [facility] [address] [place] [phone] Corrosion Control Specialist: Savage Jacob MD Lactic Acid,Whole Bl 2.1 mmol/L Normal 0.7-2.1 [facility] Comment on above: Performed By: #### P T, PTT #### [facility] [address] [place] [address] Corrosion Control Specialist: Savage Jacob MD Lactic Acid,Whole Bl 7.8 mmol/L High 0.7-2.1 [facility] Comment on above: Performed By: #### C DP, PFA, CP, GLYHGB #### [facility] [employer] [address] [place] [address] Corrosion Control Specialist: Savage Jacob MD Liver Profileon 07-04-2019 Albumin [Mass/Vol] 3.2 g/dL Low 3.5-5.2 [facility] Comment on above: Performed By: #### C DP, PFA, CP, GLYHGB #### [facility] [employer] [address] [place] [address] Corrosion Control Specialist: Savage Jacob MD Albumin/Globulin [Mass ratio] 2.9 {ratio} High 1.0-2.5 [facility] Comment on above: Performed By: #### C DP, PFA, CP, GLYHGB #### [facility] [employer] [address] [place] [address] Corrosion Control Specialist: Savage Jacob MD Alkaline Phos 20 U/L Low 35-104 [facility] Comment on above: Performed By: #### C DP, PFA, CP, GLYHGB #### [facility] [employer] [address] [place] [address] Corrosion Control Specialist: Savage Jacob MD ALT [Catalytic activity/Vol] 161 U/L High 5-33 [facility] Comment on above: Performed By: #### C DP, PFA, CP, GLYHGB #### [facility] [employer] [address] [place] [address] Corrosion Control Specialist: Savage Jcaob MD AST [Catalytic activity/Vol] 195 U/L High <32 [facility] Comment on above: Performed By: #### C DP, PFA, CP, GLYHGB #### [facility] [employer] [address] [place] [address] Corrosion Control Specialist: Savage Jacob MD Bilirubin Ql (U) 0.70 mg/dL Normal 0.3-1.2 [facility] Comment on above: Performed By: #### C DP, PFA, CP, GLYHGB #### [facility] [address] [place] [address] Corrosion Control Specialist: Savage Jacob MD Bilirubin, Indirect 0.52 mg/dL Normal 0.00-1.00 [facility] Comment on above: Performed By: #### C DP, PFA, CP, GLYHGB #### [facility] [address] [place] [phone] Corrosion Control Specialist: Savage Jacob MD Bilirubin.direct [Mass/Vol] 0.18 mg/dL Normal <0.31 [facility] Comment on above: Performed By: #### C DP, PFA, CP, GLYHGB #### [facility] [address] [place] [address] Corrosion Control Specialist: Savage Jacob MD Protein [Mass/Vol] 4.3 g/dL Low 6.4-8.3 [facility] Comment on above: Performed By: #### C DP, PFA, CP, GLYHGB #### [facility] [employer] [address] [place] [phone] Corrosion Control Specialist: Savage Jacob MD Globulin (S) [Mass/Vol] NOT REPORTED Normal 1.5-3.8 [facility] Comment on above: Performed By: #### C DP, PFA, CP, GLYHGB #### [facility] [address] [place] [address] Corrosion Control Specialist: Savage Jacob MD MAGNESIUMon 07-04-2019 Magnesium [Mass/Vol] 2.3 mg/dL 1.6 - 2 .6 mg/dL [place] Magnesium [Mass/Vol] 2.4 mg/dL 1.6 - 2 .6 mg/dL [place] Magnesium [Mass/Vol] 2.3 mg/dL 1.6 - 2 .6 mg/dL [place] Magnesiumon 07-04-2019 Magnesium [Mass/Vol] 2.3 mg/dL Normal 1.6-2.6 [facility] Comment on above: Performed By: #### U A, UMLIDIAO #### [facility] [address] [place] [address] Corrosion Control Specialist: Savage Jacob MD Magnesium [Mass/Vol] 2.4 mg/dL Normal 1.6-2.6 [facility] Comment on above: Performed By: #### P T, PTT #### [facility] [address] [place] [phone] Corrosion Control Specialist: Savage Jacob MD Magnesium [Mass/Vol] 2.3 mg/dL Normal 1.6-2.6 [facility] Comment on above: Performed By: #### P T, PTT #### [facility] [employer] [address] [place] [address] Corrosion Control Specialist: Savage Jacob MD Magnesium [Mass/Vol] 2.2 mg/dL Normal 1.6-2.6 [facility] Comment on above: Performed By: #### P T, PTT #### [facility] [employer] [address] [place] [address] Corrosion Control Specialist: Savage Jacob MD Magnesium [Mass/Vol] 2.2 mg/dL 1.6 - 2 .6 mg/dL [place] Magnesium [Mass/Vol] 2.5 mg/dL Normal 1.6-2.6 [facility] Comment on above: Performed By: #### C DP, PFA, CP, GLYHGB #### [facility] [address] [place] [address] Corrosion Control Specialist: Savage Jacob MD Magnesium [Mass/Vol] 2.6 mg/dL Normal 1.6-2.6 [facility] [facility] Comment on above: Performed By: #### C DP, PFA, CP, GLYHGB #### [facility] [employer] [employer] [address] [place] [phone] Corrosion Control Specialist: Savage Jacob MD OPEN HEART COAGon 07-04-2019 aPTT Coag (Bld) [Time] 37.7 s [place], [place] Fibrinogen 151 mg/dL 140 - 420 mg/dL [place] INR Coag (PPP) [Relative time] 1.2 {INR} [place] Interpretation and review of laboratory results Abnormal [place] Platelets (Bld) [#/Vol] 80 10*3/uL Low [place] PT Coag (PPP) [Time] 12.9 s High [place], [place] aPTT Coag (Bld) [Time] 50.4 s High [place], [place] Fibrinogen 125 mg/dL Low 140 - 420 mg/dL [place] INR Coag (PPP) [Relative time] 1.3 {INR} [place] Interpretation and review of laboratory results Abnormal [place] Platelets (Bld) [#/Vol] 87 10*3/uL Low [place] PT Coag (PPP) [Time] 13.7 s High [place], [place] aPTT Coag (Bld) [Time] 31.7 s High [place] Fibrinogen 99 mg/dL Low 140 - 420 mg/dL [place] INR Coag (PPP) [Relative time] 1.4 {INR} [place] Interpretation and review of laboratory results Abnormal [place] Platelets (Bld) [#/Vol] 68 10*3/uL Low [place] PT Coag (PPP) [Time] 14.7 s High [place], [place] Open Heart Coagon 07-04-2019 aPTT Coag (Bld) [Time] 37.7 s High 20.5-30.5 [facility] Comment on above: Performed By: #### P T, PTT #### [facility] [address] [place] [phone] Corrosion Control Specialist: Savage Jacob MD Fibrinogen 151 mg/dL Normal 140-420 [facility] Comment on above: Performed By: #### P T, PTT #### [address] [address] Corrosion Control Specialist: Savage Jacob MD INR Coag (PPP) [Relative time] 1.2 {INR} Normal [facility] Comment on above: Result Comment: Therapeutic Range: Moderate Anticoagulant Intensity: INR = 2.0-3.0 High Anticoagulant Intensity: INR = 2.5-3.5 Performed By: #### P T, PTT #### [address] [address] Corrosion Control Specialist: Savage Jacob MD PT Coag (PPP) [Time] 12.9 s High 9.0-12.0 [facility] Comment on above: Performed By: #### P T, PTT #### [address] [address] Corrosion Control Specialist: Savage Jacob MD Platelets (Bld) [#/Vol] 80 10*3/uL Low 138-453 [facility] Comment on above: Performed By: #### P T, PTT #### [address] [address] Corrosion Control Specialist: Savage Jacob MD aPTT Coag (Bld) [Time] 50.4 s High 20.5-30.5 [facility] Comment on above: Performed By: #### P T, PTT #### [address] [address] Corrosion Control Specialist: Savage Jacob MD Fibrinogen 125 mg/dL Low 140-420 [facility] Comment on above: Performed By: #### P T, PTT #### [address] [address] Corrosion Control Specialist: Savage Jacob MD INR Coag (PPP) [Relative time] 1.3 {INR} Normal [facility] Comment on above: Result Comment: Therapeutic Range: Moderate Anticoagulant Intensity: INR = 2.0-3.0 High Anticoagulant Intensity: INR = 2.5-3.5 Performed By: #### P T, PTT #### [address] [address] Corrosion Control Specialist: Savage Jacob MD PT Coag (PPP) [Time] 13.7 s High 9.0-12.0 [facility] Comment on above: Performed By: #### P T, PTT #### [address] [address] Corrosion Control Specialist: Savage Jacob MD Platelets (Bld) [#/Vol] 87 10*3/uL Low 138-453 [facility] Comment on above: Performed By: #### P T, PTT #### [address] [address] Corrosion Control Specialist: Savage Jacob MD aPTT Coag (Bld) [Time] 31.7 s High 20.5-30.5 [facility] Comment on above: Performed By: #### C DP, PFA, CP, GLYHGB #### [address] [address] Corrosion Control Specialist: Savage Jacob MD Fibrinogen 99 mg/dL Low 140-420 [facility] Comment on above: Performed By: #### C DP, PFA, CP, GLYHGB #### [address] [address] Corrosion Control Specialist: Savage Jacob MD INR Coag (PPP) [Relative time] 1.4 {INR} Normal [facility] Comment on above: Result Comment: Therapeutic Range: Moderate Anticoagulant Intensity: INR = 2.0-3.0 High Anticoagulant Intensity: INR = 2.5-3.5 Performed By: #### C DP, PFA, CP, GLYHGB #### [address] [address] Corrosion Control Specialist: Savage Jacob MD PT Coag (PPP) [Time] 14.7 s High 9.0-12.0 [facility] Comment on above: Performed By: #### C DP, PFA, CP, GLYHGB #### [facility] [employer] [address] [place] [address] Corrosion Control Specialist: Savage Jacob MD Platelets (Bld) [#/Vol] 68 10*3/uL Low 138-453 [facility] Comment on above: Performed By: #### C DP, PFA, CP, GLYHGB #### [facility] [employer] [address] [place] [address] Corrosion Control Specialist: Savage Jacob MD Fibrinogen <80 Critically low 140-420 [facility] Comment on above: Performed By: #### C DP, PFA, CP, GLYHGB #### [facility] [employer] [address] [place] [address] Corrosion Control Specialist: Savage Jacob MD INR Coag (PPP) [Relative time] 3.2 {INR} Normal [facility] Comment on above: Result Comment: Therapeutic Range: Moderate Anticoagulant Intensity: INR = 2.0-3.0 High Anticoagulant Intensity: INR = 2.5-3.5 Performed By: #### C DP, PFA, CP, GLYHGB #### [place] [address] Corrosion Control Specialist: Savage Jacob MD PT Coag (PPP) [Time] 31.0 s High 9.0-12.0 [facility] Comment on above: Performed By: #### C DP, PFA, CP, GLYHGB #### [facility] [employer] [address] [place] [address] Corrosion Control Specialist: Savage Jacob MD aPTT Coag (Bld) [Time] 85.9 s Critically high 20.5-30. 5 [facility] Comment on above: Performed By: #### C DP, PFA, CP, GLYHGB #### [facility] [address] [id number] Corrosion Control Specialist: Savage Jacob MD Otheron 07-04-2019 [place], [place] Interpretation and review of laboratory results Abnormal [place] TEG Comment NOT REPORTED [place] Interpretation and review of laboratory results Abnormal [place] TEG Comment NOT REPORTED [place] TEG Comment NOT REPORTED [place] TEG Comment NOT REPORTED [place] Interpretation and review of laboratory results Abnormal [place] Dispense Status TRANSFUSED [place] Transfusion Status OK TO TRANSFUSE [place], [place] Unit Divison 0 [place], [place] Interpretation and review of laboratory results Abnormal [place] Interpretation and review of laboratory results Abnormal [place] POC Glucose Fingerstickon Interpretation and review of laboratory results Abnormal [place] POC Glucose 106 mg/dL High 65 - 105 mg/dL [place] POC Glucose 83 mg/dL 65 - 105 mg/dL [place] Interpretation and review of laboratory results Abnormal [place] POC Glucose 112 mg/dL High 65 - 105 mg/dL [place] Interpretation and review of laboratory results Abnormal [place] POC Glucose 137 mg/dL High 65 - 105 mg/dL [place] POC Glucose 133 mg/dL High 65 - 105 mg/dL [place] Interpretation and review of laboratory results Abnormal [place] POC Glucose 159 mg/dL High 65 - 105 mg/dL [place] POC Kaolin TEGon 07-04-2019 POC Angle TEG NOT REPORTED 59 - 74 deg [place], [place] POC EPL TEG NOT REPORTED 0 - 15 % [place] POC Kinetics TEG NOT REPORTED 1 - 3 min [place] POC LY30(Lysis) TEG NOT REPORTED 0 - 8 % [place] POC MA(Max Clot) TEG NOT REPORTED 55 - 74 mm [place] POC Reaction Time TEG 19.6 min High 4 - 9 min [place] POC Angle TEG NOT REPORTED 59 - 74 deg [facility]- [place] POC EPL TEG NOT REPORTED 0 - 15 % [place] POC Kinetics TEG NOT REPORTED 1 - 3 min [place] POC LY30(Lysis) TEG NOT REPORTED 0 - 8 % [place] POC MA(Max Clot) TEG NOT REPORTED 55 - 74 mm [place] POC Reaction Time TEG 28.0 min High 4 - 9 min [place] Interpretation and review of laboratory results Abnormal [place] POC Angle TEG 49.1 deg Low 59 - 74 deg [place] POC EPL TEG NOT REPORTED 0 - 15 % [place] POC Kinetics TEG 3.5 min High 1 - 3 min [facility] [place] LY30(Lysis) TEG NOT REPORTED 0 - 8 % [place] POC MA(Max Clot) TEG 60.7 mm 55 - 74 mm [place], [place] POC Reaction Time TEG 10.2 min High 4 - 9 min [place] Interpretation and review of laboratory results Abnormal [place] POC Angle TEG 59.9 deg 59 - 74 deg [place] POC EPL TEG 0.0 % 0 - 15 % [place] POC Kinetics TEG 2.3 min 1 - 3 min [place] POC LY30(Lysis) TEG 0.0 % 0 - 8 % [place] POC MA(Max Clot) TEG 70.6 mm 55 - 74 mm [place], [place] POC Reaction Time TEG 11.4 min High 4 - 9 min [place], [place] POC Kaolin TEG with Heparino n 07-04-2019 POC Angle TEG w Hep 16.1 deg Low 59 - 74 deg [place], [place] POC EPL TEG W/HEP NOT REPORTED 0 - 15 % [place] POC Kinetics TEG w Hep 15.8 min High 1 - 3 min [place] POC LY30(Lysis) TEG w Hep NOT REPORTED 0 - 8 % [place] POC Max Clot TEG w Hep 24.5 mm Low 55 - 74 mm [place] POC Reaction Time TEG w Hep 14.2 min High 4 - 9 min [place] POC Angle TEG w Hep NOT REPORTED 59 - 74 deg [place] POC EPL TEG W/HEP NOT REPORTED 0 - 15 % [place] POC Kinetics TEG w Hep NOT REPORTED 1 - 3 min [place] POC LY30(Lysis) TEG w Hep NOT REPORTED 0 - 8 % [place] POC Max Clot TEG w Hep NOT REPORTED 55 - 74 mm [place] POC Reaction Time TEG w Hep 22.9 min High 4 - 9 min [place] POC Angle TEG w Hep 67.9 deg 59 - 74 deg [place], [place] POC EPL TEG W/HEP NOT REPORTED 0 - 15 % [place] POC Kinetics TEG w Hep 1.6 min 1 - 3 min [place] POC LY30(Lysis) TEG w Hep NOT REPORTED 0 - 8 % [place] POC Max Clot TEG w Hep 60.7 mm 55 - 74 mm [place] POC Reaction Time TEG w Hep 7.6 min 4 - 9 min [place] POC Angle TEG w Hep 73.0 deg 59 - 74 deg [place], [place] POC EPL TEG W/HEP 2.9 % 0 - 15 % [place] POC Kinetics TEG w Hep 1.2 min 1 - 3 min [place] POC LY30(Lysis) TEG w Hep 2.9 % 0 - 8 % [place] POC Max Clot TEG w Hep 73.9 mm 55 - 74 mm [place] POC Reaction Time TEG w Hep 7.0 min 4 - 9 min [place] POCT Glucoseon 07-04-2019 POC Glucose 105 mg/dL High 74 - 100 mg/dL [place], [place] POC Glucose 148 mg/dL High 74 - 100 mg/dL [place] POC Glucose 129 mg/dL High 74 - 100 mg/dL [place] POTASSIUMon 07-04-2019 Potassium [Moles/Vol] 4.4 mmol/L 3.7 - 5.3 mmol/L [place] POTASSIUM (POC)on 07-04-2019 POC Potassium 3.9 mmol/L 3.5 - 4.5 mmol/L [place] POC Potassium 4.4 mmol/L 3.5 - 4.5 mmol/L [place] POC Potassium 3.6 mmol/L 3.5 - 4.5 mmol/L [place] PREPARE FRESH FROZEN PLASMA, 1 Unitson 07-04-2019 Unit Number [id number] [place] Unit Number [id number] [place] PREPARE PLATELETS, 1 Product on 07-04-2019 Blood product type Nom (BPU) Leukocyte Reduced Irradiated Plateletpheresis [place] Unit Number [id number] [place] PTon 07-04-2019 INR Coag (PPP) [Relative time] 1.4 {INR} Normal [facility] Comment on above: Result Comment: Therapeutic Range: Moderate Anticoagulant Intensity: INR = 2.0-3.0 High Anticoagulant Intensity: INR = 2.5-3.5 Performed By: #### C DP, PFA, CP, GLYHGB #### [facility] [employer] [address] [place] [phone] Corrosion Control Specialist: Savage Jacob MD PT Coag (PPP) [Time] 14.7 s High 9.0-12.0 [facility] Comment on above: Performed By: #### C DP, PFA, CP, GLYHGB #### [facility] [employer] [address] [place] [address] Corrosion Control Specialist: Savage Jacob MD INR Coag (PPP) [Relative time] 1.7 {INR} Normal [facility] Comment on above: Result Comment: Therapeutic Range: Moderate Anticoagulant Intensity: INR = 2.0-3.0 High Anticoagulant Intensity: INR = 2.5-3.5 Performed By: #### C DP, PFA, CP, GLYHGB #### [address] [phone] Corrosion Control Specialist: Savage Jacob MD PT Coag (PPP) [Time] 17.0 s High 9.0-12.0 [facility] Comment on above: Performed By: #### C DP, PFA, CP, GLYHGB #### [address] [phone] Corrosion Control Specialist: Savage Jacob MD Platelets,Transfuseon 2019 Platelets,Transfuse Unit Number [id number] Blood Component Type LkIrPlt PAS Unit Division 00 Status of Unit TRANSFUSED Transfusion Status OK TO TRANSFUSE Normal [facility] Comment on above: Performed By: #### U A, UMICAO #### [address] [phone] Corrosion Control Specialist: Savage Jacob MD Platelets,Transfuse Unit Number [id number] Blood Component Type Leukocyte Reduced Irradiated Plateletpheresis Unit Division 00 Status of Unit TRANSFUSED Transfusion Status OK TO TRANSFUSE Normal [facility] Comment on above: Performed By: #### P T, PTT #### [address] [id number] Corrosion Control Specialist: Savage Jacob MD Protime-INRon 07-04-2019 INR Coag (PPP) [Relative time] 1.4 {INR} [place] Interpretation and review of laboratory results Abnormal [place] PT Coag (PPP) [Time] 14.7 s High [place], [place] SODIUM (POC)on 07-04-2019 POC Sodium 152 mmol/L High 138 - 146 mmol/L [place] POC Sodium 152 mmol/L High 138 - 146 mmol/L [place] POC Sodium 153 mmol/L High 138 - 146 mmol/L [place] Urine Cultureon 07-04-2019 Culture NO GROWTH [place] Special Requests NOT REPORTED [place] Specimen Description .CATHETERIZED URINE [place] XR CHEST PORTABLEon 07-04-19 XR CHEST PORTABLE EXAMINATION: ONE XRAY VIEW OF THE CHEST 07/04/2019 10:28 am COMPARISON: July 04, 2019 HISTORY: ORDERING SYSTEM PROVIDED HISTORY: vented, post open heart/chest closure, chest tubes, PA cath TECHNOLOGIST PROVIDED HISTORY: vented, post open heart/chest closure, chest tubes, PA cath Reason for Exam: supine. post op FINDINGS: The endotracheal tube terminates approximately 2 cm above the janes. Mediastinal and left chest tube remain unchanged in appearance. The enteric tube terminates in the body of the stomach. Right internal jugular [place] catheter appears unchanged in position in the mid right pulmonary artery. Mild central congestion and fullness of the superior mediastinal contours is similar compared to the most recent exam. Mild vascular congestion. No significant effusion. No pneumothorax identified. IMPRESSION: Unchanged appearance of support tubes and lines. Mild vascular congestion and subsegmental atelectasis noted without significant effusion or pneumothorax. Mild fullness and ill definition of the superior mediastinal contours may in part be due to atelectasis and vascular congestion. Continued attention to on follow-up is recommended. Interpreted by: Morro Wheeler MD Signed by: Morro Wheeler MD 07/04/19 Final result Normal [facility], [facility], [place], [place] XR CHEST PORTABLE EXAMINATION: ONE XRAY VIEW OF THE CHEST 07/04/2019 7:02 am COMPARISON: 03 July 2019 HISTORY: ORDERING SYSTEM PROVIDED HISTORY: s/p OHS, CT in place, intubated TECHNOLOGIST PROVIDED HISTORY: s/p OHS, CT in place, intubated Reason for Exam: port upr FINDINGS: AP portable view of the chest time stamped at 623 hours demonstrates overlying cardiac monitoring electrodes. An endotracheal tube terminates 3 cm above the janes. A right-sided [place] catheter terminates in the main pulmonary outflow tract. Left-sided chest tube is unchanged terminating in the left upper lung field. Intestinal tube terminates in the distal stomach body of the stomach. Prosthetic cardiac valve noted. No cardiomegaly, vascular congestion, effusion or pneumothorax is noted. Osseous structures are stable. IMPRESSION: Tubes and lines as above. Stable cardiac size. No acute focal consolidation, abrahan edema or effusion. Interpreted by: Ana Grace MD Signed by: Ana Grace MD 07/04/19 Final result Normal [place] APTTon 07-03-2019 aPTT Coag (Bld) [Time] 26.4 s Normal 20.5-30.5 [facility] Comment on above: Performed By: #### C DP, PFA, CP, GLYHGB #### [facility] [employer] [address] [place] [address] Corrosion Control Specialist: Savage Jacob MD aPTT Coag (Bld) [Time] 26.4 s [place], [place] Anion Gap (Calc) POCon 07-03 Anion gap [Moles/Vol] 15 mmol/L 7 - 16 mmol/L [place] Anion gap [Moles/Vol] 18 mmol/L High 7 - 16 mmol/L [place] Anion gap [Moles/Vol] 17 mmol/L High 7 - 16 mmol/L [place] Anion gap [Moles/Vol] 19 mmol/L High 7 - 16 mmol/L [place] Anion gap [Moles/Vol] 22 mmol/L High 7 - 16 mmol/L [place] Anion gap [Moles/Vol] 23 mmol/L High 7 - 16 mmol/L [place] Anion gap [Moles/Vol] 12 mmol/L 7 - 16 mmol/L [place] Arterial Blood Gas, POCon Graham Test NOT APPLICABLE [place] FIO2 40.0 [place] Mode PRVC [place] Negative Base Excess, Art 3 High [place] O2 Device/Flow/% Adult Ventilator [place] POC HCO3 22.5 mmol/L 21 - 28 mmol/L [place] POC O2 SAT 100 % High 94 - 98 % [place] POC pCO2 42.5 [place] POC pCO2 Temp NOT REPORTED mm [place] POC pH 7.332 Low [place] POC pH Temp NOT REPORTED [place] POC PO2 174.8 High [place] POC pO2 Temp NOT REPORTED mm Hg [place] Positive Base Excess, Art NOT REPORTED [place] Pt Temp NOT REPORTED [place] Sample Site Arterial Line [place] TCO2 (calc), Art 24 mmol/L 22 - 29 mmol/L [place] Graham Test NOT APPLICABLE [place], [place] FIO2 40.0 [place] Mode PRVC [place] Negative Base Excess, Art 2 [place] O2 Device/Flow/% Adult Ventilator [place] POC HCO3 23.1 mmol/L 21 - 28 mmol/L [place] POC O2 SAT 99 % High 94 - 98 % [place] POC pCO2 41.9 [place] POC pCO2 Temp NOT REPORTED mm [place] POC pH 7.350 [place] POC pH Temp NOT REPORTED [place] POC PO2 138.0 High [place] POC pO2 Temp NOT REPORTED mm Hg [place] Positive Base Excess, Art NOT REPORTED [place] Pt Temp NOT REPORTED [place] Sample Site Arterial Line [place] TCO2 (calc), Art 24 mmol/L 22 - 29 mmol/L [place] Graham Test NOT REPORTED [place] FIO2 NOT REPORTED [place] Mode NOT REPORTED [place] Negative Base Excess, Art NOT REPORTED [place] O2 Device/Flow/% NOT REPORTED [place] POC HCO3 26.0 mmol/L 21 - 28 mmol/L [place] POC O2 SAT 100 % High 94 - 98 % [place] POC pCO2 41.4 [place] POC pCO2 Temp NOT REPORTED mm Hg [facility], [place] POC pH 7.406 [place] POC pH Temp NOT REPORTED [facility] POC PO2 407.9 High [place] POC pO2 Temp NOT REPORTED mm Hg [place] Positive Base Excess, Art 1 [place] Pt Temp NOT REPORTED [place] Sample Site NOT REPORTED [place] TCO2 (calc), Art 27 mmol/L 22 - 29 mmol/L [place] Graham Test NOT REPORTED [place] FIO2 NOT REPORTED [place] Mode NOT REPORTED [facility] [place] Negative Base Excess, Art 7 High [place] O2 Device/Flow/% NOT REPORTED [place] POC HCO3 19.0 mmol/L Low 21 - 28 mmol/L [place] POC O2 SAT 100 % High 94 - 98 % [place] POC pCO2 38.9 [place] POC pCO2 Temp NOT REPORTED mm Hg [facility] POC pH 7.297 Low [place] POC pH Temp NOT REPORTED [place] POC PO2 334.2 High [place] POC pO2 Temp NOT REPORTED mm Hg [place] Positive Base Excess, Art NOT REPORTED [place] Pt Temp NOT REPORTED [place] Sample Site NOT REPORTED [place] TCO2 (calc), Art 20 mmol/L Low 22 - 29 mmol/L [place] Graham Test NOT REPORTED [place] FIO2 NOT REPORTED [place] Mode NOT REPORTED [place] Negative Base Excess, Art 4 High [place] O2 Device/Flow/% NOT REPORTED [place] POC HCO3 19.6 mmol/L Low 21 - 28 mmol/L [place] POC O2 SAT 100 % High 94 - 98 % [place] POC pCO2 30.9 Low [place] POC pCO2 Temp NOT REPORTED mm [place] POC pH 7.409 [place] POC pH Temp NOT REPORTED [place] POC PO2 443.8 High [place] POC pO2 Temp NOT REPORTED mm Hg [place] Positive Base Excess, Art NOT REPORTED [place], [place] Pt Temp NOT REPORTED [place] Sample Site NOT REPORTED [place], [place] TCO2 (calc), Art 21 mmol/L Low 22 - 29 mmol/L [place] Graham Test NOT REPORTED [place] FIO2 NOT REPORTED [place] Mode NOT REPORTED [place] Negative Base Excess, Art 10 High [place] O2 Device/Flow/% NOT REPORTED [place] POC HCO3 17.5 mmol/L Low 21 - 28 mmol/L [place] POC O2 SAT 100 % High 94 - 98 % [place] POC pCO2 43.9 [place] POC pCO2 Temp NOT REPORTED [place] POC pH 7.209 Low [place] POC pH Temp NOT REPORTED [place] POC PO2 540.9 High [place] POC pO2 Temp NOT REPORTED mm Hg [place] Positive Base Excess, Art NOT REPORTED [place] Pt Temp NOT REPORTED [place] Sample Site NOT REPORTED [place], [place] TCO2 (calc), Art 19 mmol/L Low 22 - 29 mmol/L [place] Graham Test NOT REPORTED [place], [place] FIO2 50.0 [place] Mode SIMV(PRVC)+ PS [place] Negative Base Excess, Art 4 High [place] O2 Device/Flow/% Adult Ventilator [place] POC HCO3 21.4 mmol/L 21 - 28 mmol/L [place] POC O2 SAT 100 % High 94 - 98 % [place] POC pCO2 40.7 [place] POC pCO2 Temp NOT REPORTED mm Hg [facility], [place] POC pH 7.329 Low [place] POC pH Temp NOT REPORTED [place] POC PO2 173.9 High [place] POC pO2 Temp NOT REPORTED mm Hg [place] Positive Base Excess, Art NOT REPORTED [place] Pt Temp NOT REPORTED [place] Sample Site NOT REPORTED [place] TCO2 (calc), Art 23 mmol/L 22 - 29 mmol/L [place] Graham Test NOT REPORTED [place] FIO2 NOT REPORTED [place] Mode NOT REPORTED [place] Negative Base Excess, Art 3 High [place] O2 Device/Flow/% NOT REPORTED [place] POC HCO3 22.1 mmol/L 21 - 28 mmol/L [place] POC O2 SAT 100 % High 94 - 98 % [place] POC pCO2 37.6 [place] POC pCO2 Temp NOT REPORTED mm [place] POC pH 7.378 [place] POC pH Temp NOT REPORTED [place] POC PO2 547.2 High [place] POC pO2 Temp NOT REPORTED mm Hg [place] Positive Base Excess, Art NOT REPORTED [place] Pt Temp NOT REPORTED [place] Sample Site NOT REPORTED [place] TCO2 (calc), Art 23 mmol/L 22 - 29 mmol/L [place] Graham Test NOT REPORTED [place] FIO2 NOT REPORTED [place] Mode NOT REPORTED [place] Negative Base Excess, Art NOT REPORTED [place] O2 Device/Flow/% NOT REPORTED [place] POC HCO3 27.0 mmol/L 21 - 28 mmol/L [place] POC O2 SAT 100 % High 94 - 98 % [place] POC pCO2 39.5 [place] POC pCO2 Temp NOT REPORTED mm Hg [facility]- [place], [place] POC pH 7.442 [place] POC pH Temp NOT REPORTED [facility] [place] POC PO2 422.0 High [place] POC pO2 Temp NOT REPORTED mm Hg [place] Positive Base Excess, Art 3 [place] Pt Temp NOT REPORTED [place] Sample Site NOT REPORTED [place] TCO2 (calc), Art 28 mmol/L 22 - 29 mmol/L [place] Graham Test NOT REPORTED [place] FIO2 NOT REPORTED [place] Mode NOT REPORTED [place] Negative Base Excess, Art NOT REPORTED [place] O2 Device/Flow/% NOT REPORTED [place] POC HCO3 24.6 mmol/L 21 - 28 mmol/L [place] POC O2 SAT 100 % High 94 - 98 % [place] POC pCO2 37.5 [place] POC pCO2 Temp NOT REPORTED mm Hg [facility]- [place], [place] POC pH 7.425 [place] POC pH Temp NOT REPORTED [place] POC PO2 378.7 [place] POC pO2 Temp NOT REPORTED mm Hg [place] Positive Base Excess, Art 0 [place] Pt Temp NOT REPORTED [place] Sample Site NOT REPORTED [place] TCO2 (calc), Art 26 mmol/L 22 - 29 mmol/L [place] Graham Test NOT REPORTED [place] FIO2 NOT REPORTED [place] Mode NOT REPORTED [place] Negative Base Excess, Art NOT REPORTED [place] O2 Device/Flow/% NOT REPORTED [place] POC HCO3 25.1 mmol/L 21 - 28 mmol/L [place] POC O2 SAT 100 % High 94 - 98 % [place] POC pCO2 37.5 [place] POC pCO2 Temp NOT REPORTED mm Hg [facility] [place], [place] POC pH 7.434 [place] POC pH Temp NOT REPORTED [place] POC PO2 435.9 High [place] POC pO2 Temp NOT REPORTED mm Hg [place] Positive Base Excess, Art 1 [place] Pt Temp NOT REPORTED [place] Sample Site NOT REPORTED [place] TCO2 (calc), Art 26 mmol/L 22 - 29 mmol/L [place] Graham Test NOT REPORTED [place] FIO2 NOT REPORTED [place] Mode NOT REPORTED [place] Negative Base Excess, Art 1 [place] O2 Device/Flow/% NOT REPORTED [place] POC HCO3 23.8 mmol/L 21 - 28 mmol/L [place] POC O2 SAT 100 % High 94 - 98 % [place] POC pCO2 40.0 [place] POC pCO2 Temp NOT REPORTED mm Hg [facility], [place] POC pH 7.382 [place] POC pH Temp NOT REPORTED [place] POC PO2 424.6 High [place] POC pO2 Temp NOT REPORTED mm Hg [place] Positive Base Excess, Art NOT REPORTED [place] Pt Temp NOT REPORTED [place] Sample Site NOT REPORTED [place] TCO2 (calc), Art 25 mmol/L 22 - 29 mmol/L [place] Graham Test NOT REPORTED [place] FIO2 NOT REPORTED [place] Mode NOT REPORTED [place] Negative Base Excess, Art 2 [place] O2 Device/Flow/% NOT REPORTED [place] POC HCO3 23.2 mmol/L 21 - 28 mmol/L [place] POC O2 SAT 100 % High 94 - 98 % [place] POC pCO2 43.1 [place] POC pCO2 Temp NOT REPORTED mm Hg [facility], [place] POC pH 7.340 Low [place] POC pH Temp NOT REPORTED [place] POC PO2 342.7 High [place] POC pO2 Temp NOT REPORTED mm Hg [place] Positive Base Excess, Art NOT REPORTED [place] Pt Temp NOT REPORTED [place] Sample Site NOT REPORTED [place] TCO2 (calc), Art 25 mmol/L 22 - 29 mmol/L [place] Graham Test NOT REPORTED [place] FIO2 NOT REPORTED [place] Mode NOT REPORTED [place] Negative Base Excess, Art 1 [place] O2 Device/Flow/% NOT REPORTED [place] POC HCO3 23.3 mmol/L 21 - 28 mmol/L [place] POC O2 SAT 100 % High 94 - 98 % [place] POC pCO2 35.9 [place] POC pCO2 Temp NOT REPORTED mm [place] POC pH 7.421 [place] POC pH Temp NOT REPORTED [place] POC PO2 357.8 High [place] POC pO2 Temp NOT REPORTED mm Hg [place] Positive Base Excess, Art NOT REPORTED [place] Pt Temp NOT REPORTED [place] Sample Site NOT REPORTED [place] TCO2 (calc), Art 24 mmol/L 22 - 29 mmol/L [place] BASIC METABOLIC PANELon - Anion gap [Moles/Vol] 21 mmol/L High 9 - 17 mmol/L [place] Bun/Cre Ratio NOT REPORTED [place] Calcium [Mass/Vol] 9.3 mg/dL 8.6 - 10. 4 mg/dL [place] Chloride [Moles/Vol] 113 mmol/L High 98 - 10 7 mmol/L [place] CO2 [Moles/Vol] 19 mmol/L Low 20 - 31 mmol/L [place] Creatinine [Mass/Vol] 1.35 mg/dL High 0.5 - 0.9 mg/dL [place] GFR 47 mL/min Low >60 [place], [place] GFR Comment [place] GFR Non- 39 mL/min Low >60 [place] GFR Staging NOT REPORTED [place] Glucose [Mass/Vol] 178 mg/dL High 70 - 99 mg/dL [place], [place] Interpretation and review of laboratory results Abnormal [place] Potassium [Moles/Vol] 3.9 mmol/L 3.7 - 5.3 mmol/L [place] Sodium [Moles/Vol] 153 mmol/L High 135 - 144 mmol/L [place] Urea nitrogen [Mass/Vol] 18 mg/dL 8 - 23 mg/dL [place] BL GAS,MIX-RUFINO,EXTon 020 HbCO, Mixed, Extended 0.8 % 0 - 5 % [place], [place] Hemoglobin, Mixed, Extended 12.6 g/dL 12 - 18 g/dL [place] MetHb, Mixed, Extended 0.8 % 0 - 1.5 % [place] O2 Content, Mixed, Extended 11 [place] O2 Sat, Mixed, Extended 65.6 % 60 - 80 % [place] Oxygen Status 40 [place] Basic Metabolic Panelon 06-23 Anion gap [Moles/Vol] 19 mmol/L High 9 - 17 mmol/L [place] Bun/Cre Ratio NOT REPORTED [place] Calcium [Mass/Vol] 9.8 mg/dL 8.6 - 10. 4 mg/dL [place] Chloride [Moles/Vol] 113 mmol/L High 98 - 10 7 mmol/L [place] CO2 [Moles/Vol] 21 mmol/L 20 - 31 mmol/L [place] Creatinine [Mass/Vol] 1.16 mg/dL High 0.5 - 0.9 mg/dL [place] GFR 56 mL/min Low >60 [place] GFR Comment [place] GFR Non- 46 mL/min Low >60 [place] GFR Staging NOT REPORTED [place] Glucose [Mass/Vol] 157 mg/dL High 70 - 99 mg/dL [place], [place] Interpretation and review of laboratory results Abnormal [place] Potassium [Moles/Vol] 3.6 mmol/L Low 3.7 - 5.3 mmol/L [place] Sodium [Moles/Vol] 153 mmol/L High 135 - 144 mmol/L [place] Urea nitrogen [Mass/Vol] 16 mg/dL 8 - 23 mg/dL [place] Anion gap [Moles/Vol] 17 mmol/L 9 - 17 mmol/L [place] Bun/Cre Ratio NOT REPORTED [place] Calcium [Mass/Vol] 8.9 mg/dL 8.6 - 10. 4 mg/dL [place] Chloride [Moles/Vol] 107 mmol/L 98 - 10 7 mmol/L [place] CO2 [Moles/Vol] 17 mmol/L Low 20 - 31 mmol/L [place] Creatinine [Mass/Vol] 1.24 mg/dL High 0.5 - 0.9 mg/dL [place] GFR 52 mL/min Low >60 [place], [place] GFR Comment [place] GFR Non- 43 mL/min Low >60 [place] GFR Staging NOT REPORTED [place] Glucose [Mass/Vol] 178 mg/dL High 70 - 99 mg/dL [place], [place] Potassium [Moles/Vol] 4.3 mmol/L 3.7 - 5.3 mmol/L [place] Sodium [Moles/Vol] 141 mmol/L 135 - 144 mmol/L [place] Urea nitrogen [Mass/Vol] 17 mg/dL 8 - 23 mg/dL [place] Basic Metabolic Profon 07-03 BUN/CRE Ratio NOT REPORTED Normal 02-09 [facility] Comment on above: Performed By: #### C DP, PFA, CP, GLYHGB #### [facility] [address] [place] [phone] Corrosion Control Specialist: Savage Jacob MD Staging: NOT REPORTED Normal [facility] Comment on above: Performed By: #### C DP, PFA, CP, GLYHGB #### [facility] [employer] [address] [place] [phone] Corrosion Control Specialist: Savage Jacob MD (cont.) Normal [facility] Comment on above: Result Comment: Aver age GFR for 70 or more years old: 75 mL/min/1.73sq m Chronic Kidney Disease: <60 mL/min/1.73sq m Kidney failure: <15 mL/min/1.73sq m eGFR calculated using average adult body mass. Additional eGFR calculator available at: http://[email or web address]_[email or web address].htm Performed By: #### C DP, PFA, CP, GLYHGB #### [facility] [employer] [address] [place] [phone] Corrosion Control Specialist: Savage Jacob MD Anion gap [Moles/Vol] 17 mmol/L Normal 9-17 [facility] Comment on above: Performed By: #### C DP, PFA, CP, GLYHGB #### [facility] [address] [place] [phone] Corrosion Control Specialist: Savage Jacob MD Calcium [Mass/Vol] 8.9 mg/dL Normal 8.6-10.4 [facility] Comment on above: Performed By: #### C DP, PFA, CP, GLYHGB #### [facility] [address] [place] [phone] Corrosion Control Specialist: Savage Jacob MD Chloride [Moles/Vol] 107 mmol/L Normal 98-107 [facility] Comment on above: Performed By: #### C DP, PFA, CP, GLYHGB #### [facility] [address] [place] [phone] Corrosion Control Specialist: Savage Jacob MD CO2 [Moles/Vol] 17 mmol/L Low 20-31 [facility] Comment on above: Performed By: #### C DP, PFA, CP, GLYHGB #### [facility] [address] [place] [phone] Corrosion Control Specialist: Savage Jacob MD Creatinine [Mass/Vol] 1.24 mg/dL High 0.50-0.90 [facility] Comment on above: Performed By: #### C DP, PFA, CP, GLYHGB #### [facility] [employer] [address] [place] [address] 119[address] Corrosion Control Specialist: Savage Jacob MD GFR, Amer 52 mL/min Low >60 [facility] Comment on above: Performed By: #### C DP, PFA, CP, GLYHGB #### [facility] [employer] [address] [place] [phone] Corrosion Control Specialist: Savage Jacob MD GFR,non Amer 43 mL/min Low >60 [facility] Comment on above: Performed By: #### C DP, PFA, CP, GLYHGB #### [facility] [employer] [address] [place] [phone] Corrosion Control Specialist: Savage Jacob MD Glucose [Mass/Vol] 178 mg/dL High 70-99 [facility] Comment on above: Performed By: #### C DP, PFA, CP, GLYHGB #### [facility] [employer] [address] [place] [phone] Corrosion Control Specialist: Savage Jacob MD Potassium [Moles/Vol] 4.3 mmol/L Normal 3.7-5.3 [facility] Comment on above: Performed By: #### C DP, PFA, CP, GLYHGB #### [facility] [employer] [address] [place] [address] 137[address] Corrosion Control Specialist: Savage Jacob MD Sodium [Moles/Vol] 141 mmol/L Normal 135-144 [facility] Comment on above: Performed By: #### C DP, PFA, CP, GLYHGB #### [facility] [address] [place] [address] Corrosion Control Specialist: Savage Jacob MD Urea nitrogen [Mass/Vol] 17 mg/dL Normal 8-23 [facility] Comment on above: Performed By: #### C DP, PFA, CP, GLYHGB #### [facility] [address] [place] [address] Corrosion Control Specialist: Savage Jacob MD BUN/CRE Ratio NOT REPORTED Normal 9- [facility] Comment on above: Performed By: #### C DP, PFA, CP, GLYHGB #### [facility] [address] [place] [address] Corrosion Control Specialist: Savage Jacob MD Staging: NOT REPORTED Normal [facility] Comment on above: Performed By: #### C DP, PFA, CP, GLYHGB #### [facility] [place] [address] Corrosion Control Specialist: Savage Jacob MD CALCIUM, IONIC (POC)on 07-03 POC Ionized Calcium 1.25 mmol/L 1.15 - 1 .33 mmol/L [place] POC Ionized Calcium 1.39 mmol/L High 1.15 - 1 .33 mmol/L [place] POC Ionized Calcium 1.47 mmol/L High 1.15 - 1 .33 mmol/L [place] POC Ionized Calcium 1.19 mmol/L 1.15 - 1 .33 mmol/L [place] POC Ionized Calcium 0.94 mmol/L Low 1.15 - 1 .33 mmol/L [place] POC Ionized Calcium 1.11 mmol/L Low 1.15 - 1 .33 mmol/L [place] POC Ionized Calcium 1.22 mmol/L 1.15 - 1 .33 mmol/L [facility], [place] POC Ionized Calcium 1.29 mmol/L 1.15 - 1 .33 mmol/L [facility], [place] P[place] Ionized Calcium 0.96 mmol/L Low 1.15 - 1 .33 mmol/L [place] POC Ionized Calcium 0.98 mmol/L Low 1.15 - 1 .33 mmol/L [facility], [place] P[place] Ionized Calcium 0.94 mmol/L Low 1.15 - 1 .33 mmol/L [place] POC Ionized Calcium 0.99 mmol/L Low 1.15 - 1 .33 mmol/L [place] POC Ionized Calcium 1.16 mmol/L 1.15 - 1 .33 mmol/L [facility], [place] POC Ionized Calcium 1.16 mmol/L 1.15 - 1 .33 mmol/L [place] CALCIUM, IONIZEDon 0 Calcium, Ion 1.14 mmol/L 1.13 - 1.33 mmol/L [place] Calcium, Ion 1.32 mmol/L 1.13 - 1.33 mmol/L [place] Calcium, Ion 1.22 mmol/L 1.13 - 1.33 mmol/L [place] CBCon 07-03-2019 Erythrocyte distribution width (RBC) [Ratio] 15.0 % High 11.8-14.4 [facility] Comment on above: Performed By: #### C DP, PFA, CP, GLYHGB #### [facility] [address] [place] [phone] Corrosion Control Specialist: Savage Jacob MD Hematocrit (Bld) [Volume fraction] 55.5 % High 36.3-47.1 [facility] Comment on above: Performed By: #### C DP, PFA, CP, GLYHGB #### [facility] [address] [place] [phone] Corrosion Control Specialist: Savage Jacob MD Hemoglobin (Bld) [Mass/Vol] 18.8 g/dL High 11.9-15.1 [facility] Comment on above: Performed By: #### C DP, PFA, CP, GLYHGB #### [address] [address] Corrosion Control Specialist: Savage Jacob MD MCH (RBC) [Entitic mass] 28.4 pg Normal 25.2-33.5 [facility] Comment on above: Performed By: #### C DP, PFA, CP, GLYHGB #### [address] [address] Corrosion Control Specialist: Savage Jacob MD MCHC (RBC) [Mass/Vol] 33.9 g/dL Normal 28.4-34.8 [facility] Comment on above: Performed By: #### C DP, PFA, CP, GLYHGB #### [address] [address] Corrosion Control Specialist: Savage Jacob MD MCV (RBC) [Entitic vol] 83.7 fL Normal 82.6-102.9 [facility] Comment on above: Performed By: #### C DP, PFA, CP, GLYHGB #### [address] [address] Corrosion Control Specialist: Savage Jacob MD NRBC Automated 0.0 per 100 WBC Normal 0.0 [facility] Comment on above: Performed By: #### C DP, PFA, CP, GLYHGB #### [address] [address] Corrosion Control Specialist: Savage Jacob MD Platelets (Bld) [#/Vol] See Reflexed IPF Result Normal 138-453 [facility] Comment on above: Performed By: #### C DP, PFA, CP, GLYHGB #### [address] [address] Corrosion Control Specialist: Savage Jacob MD RBC (Bld) [#/Vol] 6.63 10*6/uL High 3.95-5.11 [facility] Comment on above: Performed By: #### C DP, PFA, CP, GLYHGB #### [facility] [address] [place], [place] [phone] Corrosion Control Specialist: Savage Jacob MD WBC (Bld) [#/Vol] 21.5 10*3/uL High 3.5-11.3 [facility] Comment on above: Performed By: #### C DP, PFA, CP, GLYHGB #### [facility] [address] [place], [place] [phone] Corrosion Control Specialist: Savage Jacob MD Platelet mean volume (Bld) [Entitic vol] NOT REPORTED Normal 8.1-13.5 [facility] Comment on above: Performed By: #### C DP, PFA, CP, GLYHGB #### [facility] [employer] [facility] [place], [place] [phone] Corrosion Control Specialist: Savage Jacob MD Erythrocyte distribution width (RBC) [Ratio] 15.0 % High 11.8 - 14.4 % [place] Hematocrit (Bld) [Volume fraction] 55.5 % High 36.3 - 47.1 % [place] Hemoglobin (Bld) [Mass/Vol] 18.8 g/dL High 11.9 - 15.1 g/dL [place] Interpretation and review of laboratory results Abnormal [place] MCH (RBC) [Entitic mass] 28.4 pg 25.2 - 33.5 pg [place] MCHC (RBC) [Mass/Vol] 33.9 g/dL 28.4 - 34.8 g/dL [place] MCV (RBC) [Entitic vol] 83.7 fL 82.6 - 102.9 fL [place] Platelet mean volume (Bld) [Entitic vol] NOT REPORTED 8.1 - 13.5 fL [place] Platelets (Bld) [#/Vol] See Reflexed IPF Result [place] RBC (Bld) [#/Vol] 6.63 10*6/uL High 3.95 - 5.1 1 m/uL [place] WBC (Bld) [#/Vol] 21.5 10*3/uL [place] WBC (Bld) [#/Vol] 0.0 10*3/uL 0.0 per 10 0 WBC [place] CBC WITH AUTO DIFFERENTIALon 07-03-2019 Absolute Eos # 0.14 [place] Absolute Immature Granulocyte 0.21 [place] Absolute Lymph # 1.73 [place] Absolute [place] # 1.07 [place] Basophils 0 % 0 - 2 % [place] Basophils (Bld) [#/Vol] 0.06 10*3/uL [place] Differential Type NOT REPORTED [place] Eosinophils/100 WBC (Bld) 1 % 1 - 4 % [place] Erythrocyte distribution width (RBC) [Ratio] 14.5 % High 11.8 - 14.4 % [place] Hematocrit (Bld) [Volume fraction] 37.0 % 36.3 - 47.1 % [place] Hemoglobin (Bld) [Mass/Vol] 12.8 g/dL 11.9 - 15.1 g/dL [place] Immature Granulocytes 1 % High 0 [place], [place] Interpretation and review of laboratory results Abnormal [place] Lymphocytes 10 % Low 24 - 43 % [place] MCH (RBC) [Entitic mass] 29.2 pg 25.2 - 33.5 pg [place] MCHC (RBC) [Mass/Vol] 34.6 g/dL 28.4 - 34.8 g/dL [place] MCV (RBC) [Entitic vol] 84.3 fL 82.6 - 102.9 fL [place] Monocytes 6 % 3 - 12 % [place] Platelet mean volume (Bld) [Entitic vol] 8.9 fL 8.1 - 13.5 fL [place] Platelets (Bld) [#/Vol] 75 10*3/uL Low [place] Platelets (Bld) [#/Vol] NOT REPORTED [place] RBC (Bld) [#/Vol] 4.39 10*6/uL 3.95 - 5.1 1 m/uL [place] RBC morphology finding Nom (Bld) ANISOCYTOSIS PRESENT [place] Seg Neutrophils 82 % High 36 - 65 % [place] Segs Absolute 14.05 High [place] WBC (Bld) [#/Vol] 17.3 10*3/uL [place] WBC (Bld) [#/Vol] 0.0 10*3/uL 0.0 per 10 0 WBC [place] WBC Morphology NOT REPORTED [place] CHLORIDE (POC)on 07-03-2019 POC Chloride 113 mmol/L High 98 - 107 mmol/L [place] POC Chloride 108 mmol/L High 98 - 107 mmol/L [place] POC Chloride 110 mmol/L High 98 - 107 mmol/L [place] POC Chloride 110 mmol/L High 98 - 107 mmol/L [place] POC Chloride 105 mmol/L 98 - 107 mmol/L [place] POC Chloride 103 mmol/L 98 - 107 mmol/L [place] POC Chloride 108 mmol/L High 98 - 107 mmol/L [place] Calcium, Ionicon 07-03-2019 Calcium [Mass/Vol] 1.22 mmol/L Normal 1.13-1.33 [facility] Comment on above: Performed By: #### C DP, PFA, CP, GLYHGB #### [facility] [address] [place] [address] Corrosion Control Specialist: Savage Jacob MD Creatinine W/GFR Point of Ca reon 07-03-2019 GFR Comment [place] GFR Comment 50 mL/min Low >60 [place] GFR Non- 41 mL/min Low >60 [place] POC Creatinine 1.28 mg/dL High 0.51 - 1.19 mg/dL [place] GFR Comment [place] GFR Comment 55 mL/min Low >60 [place] GFR Non- 46 mL/min Low >60 [place] POC Creatinine 1.17 mg/dL 0.51 - 1.19 mg/dL [place] GFR Comment >60 >60 mL/min [place] GFR Comment [place] GFR Non- 52 mL/min Low >60 [place] POC Creatinine 1.04 mg/dL 0.51 - 1.19 mg/dL [place] GFR Comment >60 >60 mL/min [place] GFR Comment [place] GFR Non- 56 mL/min Low >60 [place] POC Creatinine 0.99 mg/dL 0.51 - 1.19 mg/dL [place] GFR Comment [place] GFR Comment >60 >60 mL/min [place] GFR Non- >60 >60 mL/min [place] POC Creatinine 0.91 mg/dL 0.51 - 1.19 mg/dL [place] GFR Comment >60 >60 mL/min [place] GFR Comment [place] GFR Non- 53 mL/min Low >60 [place] POC Creatinine 1.03 mg/dL 0.51 - 1.19 mg/dL [place] FIBRINOGENon 07-03-2019 Fibrinogen <80 Critically low 140 - 420 mg/dL [place] Interpretation and review of laboratory results Abnormal [place] Fibrinogenon 07-03-2019 Fibrinogen 151 mg/dL Normal 140-420 [facility] Comment on above: Performed By: #### C DP, PFA, CP, GLYHGB #### [facility] [employer] [facility] [place] [address] Corrosion Control Specialist: Savage Jacob MD Fibrinogen 151 mg/dL 140 - 420 mg/dL [place] Hemoglobin and hematocrit, b otfodon 07-03-2019 POC Hematocrit 32 % Low 36 - 46 % [facility] [place] POC Hemoglobin 11.0 g/dL Low 12 - 16 g/dL [facility] [place], [place] POC Hematocrit 46 % 36 - 46 % [place] POC Hemoglobin 15.5 g/dL 12 - 16 g/dL [facility] [place] POC Hematocrit 37 % 36 - 46 % [facility] [place] POC Hemoglobin 12.6 g/dL 12 - 16 g/dL [facility] [place] POC Hematocrit 36 % 36 - 46 % [facility] [place] POC Hemoglobin 12.2 g/dL 12 - 16 g/dL [facility] [place] POC Hematocrit 30 % Low 36 - 46 % [place] POC Hemoglobin 10.3 g/dL Low 12 - 16 g/dL [facility] [place] POC Hematocrit 20 % Low 36 - 46 % [place] POC Hemoglobin 7.0 g/dL Critically low 12 - 16 g/dL [place] POC Hematocrit 31 % Low 36 - 46 % [place] POC Hemoglobin 10.6 g/dL Low 12 - 16 g/dL [facility] [place] POC Hematocrit 26 % Low 36 - 46 % [place] POC Hemoglobin 8.7 g/dL Low 12 - 16 g/dL [facility] [place] POC Hematocrit 22 % Low 36 - 46 % [place] POC Hemoglobin 7.4 g/dL Low 12 - 16 g/dL [facility] [place] POC Hematocrit 24 % Low 36 - 46 % [place] POC Hemoglobin 8.0 g/dL Low 12 - 16 g/dL [facility] [place] POC Hematocrit 24 % Low 36 - 46 % [place] POC Hemoglobin 8.1 g/dL Low 12 - 16 g/dL [facility] [place] POC Hematocrit 25 % Low 36 - 46 % [facility] [place] POC Hemoglobin 8.4 g/dL Low 12 - 16 g/dL [facility] [place] POC Hematocrit 26 % Low 36 - 46 % [place] POC Hemoglobin 9.0 g/dL Low 12 - 16 g/dL [facility] [place] POC Hematocrit 27 % Low 36 - 46 % [place] POC Hemoglobin 9.2 g/dL Low 12 - 16 g/dL [facility] [place] POC Hematocrit 26 % Low 36 - 46 % [place] POC Hemoglobin 8.9 g/dL Low 12 - 16 g/dL [place] Hepatic Function Panelon Albumin [Mass/Vol] 3.2 g/dL Low 3.5 - 5.2 g/dL [place] Albumin/Globulin [Mass ratio] 2.9 {ratio} High [place] ALP [Catalytic activity/Vol] 20 U/L Low 35 - 104 U/L [place] ALT [Catalytic activity/Vol] 161 U/L High 5 - 33 U/L [place] AST [Catalytic activity/Vol] 195 U/L High <32 [place] Bilirubin Ql (U) 0.70 mg/dL 0.3 - 1.2 mg/dL [place] Bilirubin, Indirect 0.52 mg/dL 0 - 1 mg/dL [place], [place] Bilirubin.direct [Mass/Vol] 0.18 mg/dL <0.31 [place] Globulin NOT REPORTED 1.5 - 3.8 g/dL [place] Interpretation and review of laboratory results Abnormal [place] Protein [Mass/Vol] 4.3 g/dL Low 6.4 - 8.3 g/dL [place] Immature Platelet Fractionon 07-03-2019 Interpretation and review of laboratory results Abnormal [place] Platelet, Fluorescence 43 Low [place] Platelet, Immature Fraction 1.6 % 1.1 - 10.3 % [place] LACTIC ACID, WHOLE BLOODon 0 07-03-2019 Interpretation and review of laboratory results Abnormal [place] Lactic Acid, Whole Blood 7.8 mmol/L High 0.7 - 2.1 mmol/L [place] Lactic Acid, POCon 0 POC Lactic Acid 8.50 mmol/L High 0.56 - 1.39 mmol/L [facility], [place] POC Lactic Acid 7.80 mmol/L High 0.56 - 1.39 mmol/L [place] POC Lactic Acid 9.22 mmol/L High 0.56 - 1.39 mmol/L [place] POC Lactic Acid 9.18 mmol/L High 0.56 - 1.39 mmol/L [place] POC Lactic Acid 10.36 mmol/L High 0.56 - 1.39 mmol/L [place] POC Lactic Acid 12.34 mmol/L High 0.56 - 1.39 mmol/L [place] MAGNESIUMon 07-03-2019 Magnesium [Mass/Vol] 2.5 mg/dL 1.6 - 2 .6 mg/dL [place] Magnesiumon 07-03-2019 Magnesium [Mass/Vol] 2.6 mg/dL 1.6 - 2 .6 mg/dL [place] Magnesium [Mass/Vol] 3.5 mg/dL High 1.6-2.6 [facility] Comment on above: Performed By: #### C DP, PFA, CP, GLYHGB #### [facility] [employer] [address] [place] [address] Corrosion Control Specialist: Savage Jacob MD Magnesium [Mass/Vol] 3.5 mg/dL High 1.6 - 2 .6 mg/dL [place] Mixed Venous Gas, POCon 06-23 [place] Test NOT REPORTED [place], [place] FIO2 NOT REPORTED [place] HCO3, Mixed 23.7 mmol/L 23 - 29 mmol/L [place] Mode NOT REPORTED [place] Negative Base Excess, Mixed 1 [place] O2 Device/Flow/% NOT REPORTED [place] O2 Sat, Mixed 70 % 60 - 80 % [place] PCO2, Mixed 39.6 Low [place] PH MIXED 7.384 [place] PO2, Mixed 37.4 [place] POC pCO2 Temp NOT REPORTED mm Hg [place] POC pH Temp NOT REPORTED [place] POC pO2 Temp NOT REPORTED mm Hg [place] Positive Base Excess, Mixed NOT REPORTED [place] Pt Temp NOT REPORTED [place] Sample Site NOT REPORTED [place] tCO2, Mixed 25 mmol/L 24 - 30 mmol/L [place] OPEN HEART COAGon 07-03-2019 aPTT Coag (Bld) [Time] 85.9 s Critically high [place] Fibrinogen <80 Critically low 140 - 420 mg/dL [place] INR Coag (PPP) [Relative time] 3.2 {INR} [place] Interpretation and review of laboratory results Abnormal [place] Platelets (Bld) [#/Vol] DUPLICATE ORDER k/uL [place] PT Coag (PPP) [Time] 31 s High [place], [place] Otheron 07-03-2019 Interpretation and review of laboratory results Abnormal [place] Interpretation and review of laboratory results Abnormal [place] Interpretation and review of laboratory results Abnormal [place] Interpretation and review of laboratory results Abnormal [place] Interpretation and review of laboratory results Abnormal [place] Interpretation and review of laboratory results Abnormal [place] Interpretation and review of laboratory results Abnormal [place] Interpretation and review of laboratory results Abnormal [place] Interpretation and review of laboratory results Abnormal [place] Interpretation and review of laboratory results Abnormal [place] Interpretation and review of laboratory results Abnormal [place] Interpretation and review of laboratory results Abnormal [place] Interpretation and review of laboratory results Abnormal [place] Interpretation and review of laboratory results Abnormal [place] Interpretation and review of laboratory results Abnormal [place] Interpretation and review of laboratory results Abnormal [place] PLT, Immature Fract.on 07-03 Platelet, Fluoresc. 43 k/uL Low 138-453 [facility] Comment on above: Result Comment: ORDE RED BY LAB Performed By: #### C DP, PFA, CP, GLYHGB #### [facility] [address] [place], [place] [id number] Corrosion Control Specialist: Savage Jacob MD PLT, Immature Fract. 1.6 % Normal 1.1-10.3 [facility] Comment on above: Result Comment: ORDE RED BY LAB Performed By: #### C DP, PFA, CP, GLYHGB #### [facility] [address] [place], [place] [id number] Corrosion Control Specialist: Savage Jacob MD POC Glucose Fingerstickon Interpretation and review of laboratory results Abnormal [place] POC Glucose 164 mg/dL High 65 - 105 mg/dL [place] Interpretation and review of laboratory results Abnormal [place] POC Glucose 143 mg/dL High 65 - 105 mg/dL [place] POCT Glucoseon 07-03-2019 POC Glucose 176 mg/dL High 74 - 100 mg/dL [place] POC Glucose 148 mg/dL High 74 - 100 mg/dL [place] POC Glucose 144 mg/dL High 74 - 100 mg/dL [place] POC Glucose 161 mg/dL High 74 - 100 mg/dL [place] POC Glucose 183 mg/dL High 74 - 100 mg/dL [place] POC Glucose 192 mg/dL High 74 - 100 mg/dL [place] POC Glucose 174 mg/dL High 74 - 100 mg/dL [place] POC Glucose 160 mg/dL High 74 - 100 mg/dL [place] POC Glucose 129 mg/dL High 74 - 100 mg/dL [place] POC Glucose 119 mg/dL High 74 - 100 mg/dL [place] POC Glucose 127 mg/dL High 74 - 100 mg/dL [place] POC Glucose 151 mg/dL High 74 - 100 mg/dL [place] POC Glucose 149 mg/dL High 74 - 100 mg/dL [facility], [place] POC Glucose 142 mg/dL High 74 - 100 mg/dL [facility] POC Glucose 127 mg/dL High 74 - 100 mg/dL [place] POTASSIUM (POC)on 07-03-2019 POC Potassium 3.7 mmol/L 3.5 - 4.5 mmol/L [facility] P[place] Potassium 3.6 mmol/L 3.5 - 4.5 mmol/L [facility] Potassium 3.6 mmol/L 3.5 - 4.5 mmol/L [facility] Potassium 4.0 mmol/L 3.5 - 4.5 mmol/L [facility] Potassium 4.0 mmol/L 3.5 - 4.5 mmol/L [facility] Potassium 4.0 mmol/L 3.5 - 4.5 mmol/L [facility] Potassium 4.2 mmol/L 3.5 - 4.5 mmol/L [facility] Potassium 4.5 mmol/L 3.5 - 4.5 mmol/L [facility] Potassium 5.3 mmol/L High 3.5 - 4.5 mmol/L [facility] Potassium 5.4 mmol/L High 3.5 - 4.5 mmol/L [facility] Potassium 5.2 mmol/L High 3.5 - 4.5 mmol/L [facility] Potassium 5.7 mmol/L High 3.5 - 4.5 mmol/L [facility] Potassium 4.5 mmol/L 3.5 - 4.5 mmol/L [facility] Potassium 4.0 mmol/L 3.5 - 4.5 mmol/L [place] PROTIME-INRon 07-03-2019 INR Coag (PPP) [Relative time] 1.7 {INR} [place] Interpretation and review of laboratory results Abnormal [place] PT Coag (PPP) [Time] 17 s High [place] PTon 07-03-2019 INR Coag (PPP) [Relative time] 1.2 {INR} Normal [facility] Comment on above: Result Comment: Therapeutic Range: Moderate Anticoagulant Intensity: INR = 2.0-3.0 High Anticoagulant Intensity: INR = 2.5-3.5 Performed By: #### C DP, PFA, CP, GLYHGB #### [facility] [address] [place] [phone] Corrosion Control Specialist: Savage Jacob MD PT Coag (PPP) [Time] 12.6 s High 9.0-12.0 [facility] Comment on above: Performed By: #### C DP, PFA, CP, GLYHGB #### [facility] [address] [place] [phone] Corrosion Control Specialist: Savage Jacob MD Platelet Counton 07-03-2019 Platelets (Bld) [#/Vol] 185 10*3/uL Normal 138-453 [facility] Comment on above: Performed By: #### C DP, PFA, CP, GLYHGB #### [facility] [employer] [address] [place] [phone] Corrosion Control Specialist: Savage Jacob MD Platelet counton 07-03-2019 Platelets (Bld) [#/Vol] 185 10*3/uL [place] Protime-INRon 07-03-2019 INR Coag (PPP) [Relative time] 1.2 {INR} [place] Interpretation and review of laboratory results Abnormal [place] PT Coag (PPP) [Time] 12.6 s [place] SODIUM (POC)on 07-03-2019 POC Sodium 150 mmol/L High 138 - 146 mmol/L [place] POC Sodium 149 mmol/L High 138 - 146 mmol/L [place] POC Sodium 153 mmol/L High 138 - 146 mmol/L [place] POC Sodium 148 mmol/L High 138 - 146 mmol/L [place] POC Sodium 147 mmol/L High 138 - 146 mmol/L [facility] [place] POC Sodium 143 mmol/L 138 - 146 mmol/L [facility] [place] POC Sodium 141 mmol/L 138 - 146 mmol/L [facility], [place] POC Sodium 144 mmol/L 138 - 146 mmol/L [facility], [place] POC Sodium 144 mmol/L 138 - 146 mmol/L [facility] Sodium 142 mmol/L 138 - 146 mmol/L [facility] Sodium 140 mmol/L 138 - 146 mmol/L [facility] POC Sodium 141 mmol/L 138 - 146 mmol/L [facility], [place] POC Sodium 142 mmol/L 138 - 146 mmol/L [facility], [place] Surgical Pathologyon 020 Surgical Pathology (NOTE) [id number] [facility] [employer] CONSULTING PATHOLOGISTS [facility] ANATOMIC PATHOLOGY [address] [place] [address]. [place] [phone] SURGICAL PATHOLOGY CONSULTATION Patient Name: TC MCCLAINMEET [facility] Rec: [id number] Path Number: [id number] Collected: 07/03/2019 Received: 07/04/2019 Reported: 07/05/2019 13:33 -- Diagnosis -- 1. AORTIC VALVE, RESECTION: - FIBROSIS, MYXOMATOUS DEGENERATIVE CHANGE AND DYSTROPHIC CALCIFICATIONS. - CLINICAL AORTIC STENOSIS. - NEGATIVE FOR INFECTIOUS VEGETATION. 2. 16 SCREWS, 3 BANDS, 2 PLATES. GROSS ONLY. Loki Francisco, Electronically Signed Out [facility]/07/05/2019 Clinical Information Pre-op Diagnosis: MULTIVESSEL CORONARY ARTERY DISEASE Operative Findings: AORTIC VALVE; 16 SCREWS, 3 PLATES, 3 BANDS Operation Performed: CABG CORONARY ARTERY BYPASS x 2, AORTIC VALVE REPLACEMENT Source of Specimen 1: AORTIC VALVE 2: 16 SCREWS, 3 PLATES, 3 BANDS Gross Description 1. ELEANOR MCCLAIN, AORTIC VALVE Fragments of pedroza, focally mineralized valvular tissue, 3.5 x 2.2 x 0.6 cm in aggregate. No vegetations or masses. Portion 1cs after short decalcification. 2. ELEANOR MCCLAIN, 16 SCREWS, 3 PLATES, 3 BANDS Three bands, two plates and sixteen screws. Gross only. tm Microscopic Description 1. Microscopic examination performed. Normal [facility] Comment on above: Performed By: #### U ADENIZ #### [facility] [address] [place] [id number] Corrosion Control Specialist: Savage Jacob MD Type + Screenon 07-03-2019 Type + Screen Sample Expiration 07/06/2019,2345 Arm Band Number [id number] ABO/Rh(D) A POSITIVE Antibody Screen NEGATIVE Antigen Type,Patient Negative for E Antigen Unit Number [id number] Blood Component Type Leukocyte Reduced Red Cell Unit Division 00 Status of Unit TRANSFUSED Transfusion Status OK TO TRANSFUSE Crossmatch Result COMPATIBLE Unit Number [id number] Blood Component Type Leukocyte Reduced Red Cell Unit Division 00 Status of Unit TRANSFUSED Transfusion Status OK TO TRANSFUSE Crossmatch Result COMPATIBLE Unit Number [id number] Blood Component Type Leukocyte Reduced Red Cell Unit Division 00 Status of Unit TRANSFUSED Transfusion Status OK TO TRANSFUSE Crossmatch Result COMPATIBLE Unit Number [id number] Blood Component Type Leukocyte Reduced Red Cell Unit Division 00 Status of Unit TRANSFUSED Transfusion Status OK TO TRANSFUSE Crossmatch Result COMPATIBLE Unit Number [id number] Blood Component Type Leukocyte Reduced Red Cell Unit Division 00 Status of Unit TRANSFUSED Transfusion Status OK TO TRANSFUSE Crossmatch Result COMPATIBLE Unit Number [id number] Blood Component Type Leukocyte Reduced Red Cell Unit Division 00 Status of Unit TRANSFUSED Transfusion Status OK TO TRANSFUSE Crossmatch Result COMPATIBLE Unit Number [id number] Blood Component Type Leukocyte Reduced Red Cell Unit Division 00 Status of Unit TRANSFUSED Transfusion Status OK TO TRANSFUSE Crossmatch Result COMPATIBLE Unit Number [id number] Blood Component Type Leukocyte Reduced Red Cell Unit Division 00 Status of Unit TRANSFUSED Transfusion Status OK TO TRANSFUSE Crossmatch Result COMPATIBLE Unit Number [id number] Blood Component Type Leukocyte Reduced Red Cell Unit Division 00 Status of Unit TRANSFUSED Transfusion Status OK TO TRANSFUSE Crossmatch Result COMPATIBLE Unit Number [id number] Blood Component Type Leukocyte Reduced Red Cell Unit Division 00 Status of Unit TRANSFUSED Transfusion Status OK TO TRANSFUSE Crossmatch Result COMPATIBLE Unit Number [id number] Blood Component Type Leukocyte Reduced Red Cell Unit Division 00 Status of Unit TRANSFUSED Transfusion Status OK TO TRANSFUSE Crossmatch Result COMPATIBLE Unit Number [id number] Blood Component Type Leukocyte Reduced Red Cell Unit Division 00 Status of Unit REL FROM ALLOC Transfusion Status OK TO TRANSFUSE Crossmatch Result COMPATIBLE Unit Number [id number] Blood Component Type Leukocyte Reduced Red Cell Unit Division 00 Status of Unit REL FROM ALLOC Transfusion Status OK TO TRANSFUSE Crossmatch Result COMPATIBLE Unit Number [id number] Blood Component Type Leukocyte Reduced Red Cell Unit Division 00 Status of Unit REL FROM ALLOC Transfusion Status OK TO TRANSFUSE Crossmatch Result COMPATIBLE Unit Number [id number] Blood Component Type Leukocyte Reduced Red Cell Unit Division 00 Status of Unit REL FROM ALLOC Transfusion Status OK TO TRANSFUSE Crossmatch Result COMPATIBLE Unit Number [id number] Blood Component Type Leukocyte Reduced Red Cell Unit Division 00 Status of Unit REL FROM ALLOC Transfusion Status OK TO TRANSFUSE Crossmatch Result NOT TESTED Unit Number [id number] Blood Component Type Leukocyte Reduced Red Cell Unit Division 00 Status of Unit REL FROM ALLOC Transfusion Status OK TO TRANSFUSE Crossmatch Result NOT TESTED Unit Number [id number] Blood Component Type Leukocyte Reduced Red Cell Unit Division 00 Status of Unit REL FROM ALLOC Transfusion Status OK TO TRANSFUSE Crossmatch Result NOT TESTED Unit Number [id number] Blood Component Type Leukocyte Reduced Red Cell Unit Division 00 Status of Unit REL FROM ALLOC Transfusion Status OK TO TRANSFUSE Crossmatch Result NOT TESTED Normal [facility] Comment on above: Performed By: #### U A, UMICAO #### [facility] [employer] [facility] [place] [address] Corrosion Control Specialist: Savage Jacob MD XR CHEST PORTABLEon 07-03-19 20 XR CHEST PORTABLE EXAMINATION: ONE XRAY VIEW OF THE CHEST 07/03/2019 8:22 pm COMPARISON: 07/03/2027, 1739 hours HISTORY: ORDERING SYSTEM PROVIDED HISTORY: EMERGENCY TECHNOLOGIST PROVIDED HISTORY: EMERGENCY 5-year-old female with emergency; rule out surgical equipment FINDINGS: Portable supine view of the chest. Endotracheal tube partially extending towards the right mainstem bronchus. Slight retraction by approximately 1.5 cm recommended. NG tube distal tip at the GE junction. Advancement is recommended so that the side-port is beyond the GE junction. Advancement by approximately 13 cm is recommended. Right IJ approach [place] catheter distal tip overlying the expected location of the main pulmonary artery. Bilateral chest tubes 1 projecting over the left mid lung zone and another projecting over the medial right lung base. Right subclavian approach central venous catheter distal tip overlying the right atrium, stable. Prior cholecystectomy. No obvious pneumothorax on limited portable supine imaging. Mild left basilar atelectasis. Mild pulmonary vascular congestion. Trace left-sided pleural fluid. Cardiac and mediastinal contours remain unchanged. Atherosclerotic calcification of the aorta. Valvular prosthesis projects over the cardiac silhouette. Visualized osseous structures remain unchanged. No obvious sponge like density projects over the field of view. Linear radiodensity which may be external to the patient projects over the left mid abdomen near the midline. Midline closure plates are not seen overlying the chest when compared with the prior study. IMPRESSION: 1. Support tubing and lines as detailed above. Advancement of the NG tube is recommended by 13 cm so that the side-port is beyond the GE junction. Slight retraction of the endotracheal tube by 1.5 cm recommended as the ET tube is partially extending towards the right mainstem bronchus. 2. Bilateral chest tubes as detailed above. Valvular prosthesis. 3. Mild left basilar atelectasis. Mild pulmonary vascular congestion. Trace left-sided pleural fluid. 4. Linear radiodensity which may be external to the patient projects over the left mid abdomen near the midline. 5. No obvious sponge like radiodensity projects over the field of view. The findings were sent to the Radiology Results Communication Center at 8:52 pm on 07/03/2019to be communicated to a licensed caregiver. Interpreted by: Enzo Plascencia MD Signed by: Enzo Plascencia MD 07/03/19 Final result Normal [facility] XR CHEST PORTABLE EXAMINATION: ONE XRAY VIEW OF THE CHEST 07/03/2019 5:57 pm COMPARISON: 06/25/2019 HISTORY: ORDERING SYSTEM PROVIDED HISTORY: Post op open heart surgery TECHNOLOGIST PROVIDED HISTORY: Post op open heart surgery Reason for Exam: supine Acuity: Unknown Type of Exam: Initial FINDINGS: Postoperative open heart surgery. Endotracheal tube appears slightly low in position approximately 11 mm above the level of the janes. Pulmonary artery catheter with the tip near the main pulmonary artery. Enteric tube with the tip within the distal esophagus. Right subclavian central venous catheter. Left chest tube is in place. No definite pneumothorax. Sternotomy. Cardiomegaly. Aortic valve replacement. Minimal pulmonary edema. Small left lung base opacity is likely atelectasis. IMPRESSION: Endotracheal tube is slightly low in position approximately 11 mm above the level of the janes. Recommend minimally retracting. Enteric tube with the tip within the distal esophagus. Recommend advancing. Interpreted by: Jesús Clemons MD Signed by: Jesús Clemons MD 07/03/19 Final result Normal [facility], [place] [facility], [facility], [place] [facility] [facility] [facility], [place] CT Chest WO Contraston 06-29 7.5 mm ground-glass nodule right upper lobe which may be on the basis of inflammatory or infectious basis. Coronary artery calcification. Atherosclerotic disease. RECOMMENDATIONS: Follow-up CT in 6-12 months. Fleischner Society guidelines for follow-up and management of incidentally detected pulmonary nodules: Single Solid Nodule: Nodule size equals 6-8 mm In a low-risk patient, CT at 6-12 months, then consider CT at 18-24 months. In a high-risk patient, CT at 6-12 months, then CT at 18-24 months. - Low risk patients include individuals with minimal or absent history of smoking and other known risk factors. - High risk patients include individuals with a history or smoking or known risk factors. Radiology 2017 http://pubs.rsna.org/ doi/full/10.1148/radi ol.0945314832 [facility] Work Phone: EXAMINATION: CT OF THE CHEST WITHOUT CONTRAST 06/29/2019 3:24 pm TECHNIQUE: CT of the chest was performed without the administration of intravenous contrast. Multiplanar reformatted images are provided for review. Dose modulation, iterative reconstruction, and/or weight based adjustment of the mA/kV was utilized to reduce the radiation dose to as low as reasonably achievable. COMPARISON: None. HISTORY: ORDERING SYSTEM PROVIDED HISTORY: CAD, multiple vessel TECHNOLOGIST PROVIDED HISTORY: CAD, pre-op CABG FINDINGS: Mediastinum: No mediastinal adenopathy or acute aortic abnormality is noted. Mild plaque in the aortic arch is noted. Heart size is normal. No pericardial effusion or epicardial adenopathy is noted. Coronary artery calcification in the LAD and circumflex is noted. Lungs/pleura: A 7.5 mm ground-glass nodule in the right upper lobe image 27 series 3 is noted. This is likely on an inflammatory, less likely infectious, basis. No other nodules are noted. No areas of consolidation or effusion are present. Tracheobronchial tree is patent. Upper Abdomen: Atherosclerotic disease is noted in the aorta. Gallbladder is surgically absent. Otherwise no abnormality of note is present. Soft Tissues/Bones: Multilevel degenerative and degenerative disc changes are present without worrisome acute osseous abnormality. No acute soft tissue abnormality is seen. [employer] Work Phone: [place], [facility] Incoming Radiant Results From [facility] - 06/29/2019 4:37 PM EST EXAMINATION: CT OF THE CHEST WITHOUT CONTRAST 06/29/2019 3:24 pm TECHNIQUE: CT of the chest was performed without the administration of intravenous contrast. Multiplanar reformatted images are provided for review. Dose modulation, iterative reconstruction, and/or weight based adjustment of the mA/kV was utilized to reduce the radiation dose to as low as reasonably achievable. COMPARISON: None. HISTORY: ORDERING SYSTEM PROVIDED HISTORY: CAD, multiple vessel TECHNOLOGIST PROVIDED HISTORY: CAD, pre-op CABG FINDINGS: Mediastinum: No mediastinal adenopathy or acute aortic abnormality is noted. Mild plaque in the aortic arch is noted. Heart size is normal. No pericardial effusion or epicardial adenopathy is noted. Coronary artery calcification in the LAD and circumflex is noted. Lungs/pleura: A 7.5 mm ground-glass nodule in the right upper lobe image 27 series 3 is noted. This is likely on an inflammatory, less likely infectious, basis. No other nodules are noted. No areas of consolidation or effusion are present. Tracheobronchial tree is patent. Upper Abdomen: Atherosclerotic disease is noted in the aorta. Gallbladder is surgically absent. Otherwise no abnormality of note is present. Soft Tissues/Bones: Multilevel degenerative and degenerative disc changes are present without worrisome acute osseous abnormality. No acute soft tissue abnormality is seen. IMPRESSION: 7.5 mm ground-glass nodule right upper lobe which may be on the basis of inflammatory or infectious basis. Coronary artery calcification. Atherosclerotic disease. RECOMMENDATIONS: Follow-up CT in 6-12 months. Fleischner Society guidelines for follow-up and management of incidentally detected pulmonary nodules: Single Solid Nodule: Nodule size equals 6-8 mm In a low-risk patient, CT at 6-12 months, then consider CT at 18-24 months. In a high-risk patient, CT at 6-12 months, then CT at 18-24 months. - Low risk patients include individuals with minimal or absent history of smoking and other known risk factors. - High risk patients include individuals with a history or smoking or known risk factors. Radiology 2017 http://pubs.rsna.org/ doi/full/10.1148/radi ol.1972268979 [employer] Work Phone: VL DUP CAROTID BILATERALon 0 06-29-2019 [facility] l Vascular Carotid Procedure Patient Name RHETT Date of Study 06/29/2019 ELEANOR Hay Date of 1950 Gender Female Age 68 year(s) Race Room Number Corporate ID # [id number] Patient MR # [id number] Equal Opportunity Director MITCHELL Colmenares Interpreting Physician Ana Grace MD Referring Referring Physician Nurse Practitioner Procedure Type of Study: Cerebral: Carotid, Carotid Scan Bilateral. Indications for Study:Bruit, carotid. Patient Status:Out Patient. Technical Quality:Good visualization. Comments:Basic Classification of ICA Stenosis: PSV - Peak Systolic Velocity Normal: No plaque or calcification identified, no elevation of PSV Mild: <50% spectral broadening without increased PSV Moderate: 50 - 69% PSV >125 - <230 cm/sec Severe: 70 - 99% PSV >230 cm/sec Critical: 80 - 99% PSV >230cm/sec and/or End Diastolic Velocities >120cm/sec. Ordered by: Vasiliy Garcia APRN-BRYSON Conclusions Summary Moderate 50-69% stenosis of the right internal carotid artery. Mild 16-49% stenosis of the left internal carotid artery. Signature - - - - Findings: Right Impression: Left Impression: Intimal thickening right common Intimal thickening left common carotid artery. carotid artery. Carotid scan shows mild Carotid scan shows mild heterogeneous heterogeneous plaque formation at plaque formation at the bifurcation, the bifurcation, origin of the right origin of the left internal carotid internal carotid artery. artery. Vertebral artery flow is antegrade . Vertebral artery flow is antegrade . Risk Factors History +---------+----+----- + !Diagnosis!Date!Comme nts ! +---------+----+----- + !CAD ! !aortic stenosis ! +---------+----+----- + !Other ! !H/O CVA ! ! ! !H/O kidney disease ! +---------+----+----- + Velocities are measured in cm/s ; Diameters are measured in cm Carotid Right Measurements + +-------- +-------+-------+---- --+ +------ + !Location !PSV !EDV !Angle !RI !%Stenosis !Tortuosity ! + +-------- +-------+-------+---- --+ +------ + !Prox CCA !60.35 !17.15 ! !0.72 ! ! ! + +-------- +-------+-------+---- --+ +------ + !Mid CCA !58.9 !19.56 ! !0.67 ! ! ! + +-------- +-------+-------+---- --+ +------ + !Dist CCA !65.84 !14.93 ! !0.77 ! ! ! + +-------- +-------+-------+---- --+ +------ + !Bulb !99.73 !35.86 ! !0.64 ! ! ! + +-------- +-------+-------+---- --+ +------ + !Prox ICA !106.85 !40.57 ! !0.62 ! ! ! + +-------- +-------+-------+---- --+ +------ + !Mid ICA !125.31 !38.62 ! !0.69 ! ! ! + +-------- +-------+-------+---- --+ +------ + !Dist ICA !94.43 !32.77 ! !0.65 ! ! ! + +-------- +-------+-------+---- --+ +------ + !Prox ECA !70.08 !9.72 ! !0.86 ! ! ! + +-------- +-------+-------+---- --+ +------ + !Vertebral !32.03 !11.4 ! !0.64 ! ! ! + +-------- +-------+-------+---- --+ +------ + - There is antegrade vertebral flow noted on the right side. - Additional Measurements:ICAPSV/C CAPSV 2.08.ICAEDV/CCAEDV 2.37. Carotid Left Measurements + +------- -+--------+--------+- ------+ +- + !Location !PSV !EDV !Angle !RI !%Stenosis !Tortuosity ! + +------- -+--------+--------+- ------+ +- + !Prox CCA !56.4 !10.13 ! !0.82 ! ! ! + +------- -+--------+--------+- ------+ +- + !Mid CCA !49.4 !10.12 ! !0.8 ! ! ! + +------- -+--------+--------+- ------+ +- + !Dist CCA !52.29 !11.64 ! !0.78 ! ! ! + +------- -+--------+--------+- ------+ +- + !Bulb !61.3 !12.71 ! !0.79 ! ! ! + +------- -+--------+--------+- ------+ +- + !Prox ICA !59.9 !17.31 ! !0.71 ! ! ! + +------- -+--------+--------+- ------+ +- + !Mid ICA !50.49 !15.64 ! !0.69 ! ! ! + +------- -+--------+--------+- ------+ +- + !Dist ICA !77.16 !20.09 ! !0.74 ! ! ! + +------- -+--------+--------+- ------+ +- + !Prox ECA !71.46 !5.25 ! !0.93 ! ! ! + +------- -+--------+--------+- ------+ +- + !Vertebral !77.16 !17.81 ! !0.77 ! ! ! + +------- -+--------+--------+- ------+ +- + - Additional Measurements:ICAPSV/C CAPSV 1.37.ICAEDV/CCAEDV 1.98. [employer] Phone: [place], [place] Incoming Cardio Results From [facility] [employer] - 06/29/2019 4:29 PM [facility] Vascular Carotid Procedure Patient Name RHETT Date of Study 06/29/2019 ELEANOR Hay Date of 1950 Gender Female Age 68 year(s) Race Room Number Corporate ID # [id number] Patient MR # [id number] Equal Opportunity Director MITCHELL Colmenares Interpreting Physician Ana Grace MD Referring Referring Physician Nurse Practitioner Procedure Type of Study: Cerebral: Carotid, Carotid Scan Bilateral. Indications for Study:Bruit, carotid. Patient Status:Out Patient. Technical Quality:Good visualization. Comments:Basic Classification of ICA Stenosis: PSV - Peak Systolic Velocity Normal: No plaque or calcification identified, no elevation of PSV Mild: <50% spectral broadening without increased PSV Moderate: 50 - 69% PSV >125 - <230 cm/sec Severe: 70 - 99% PSV >230 cm/sec Critical: 80 - 99% PSV >230cm/sec and/or End Diastolic Velocities >120cm/sec. Ordered by: Vasiliy Garcia,MARICRUZ-TROLLEY WORKER Conclusions Summary Moderate 50-69% stenosis of the right internal carotid artery. Mild 16-49% stenosis of the left internal carotid artery. Signature - - - - Findings: Right Impression: Left Impression: Intimal thickening right common Intimal thickening left common carotid artery. carotid artery. Carotid scan shows mild Carotid scan shows mild heterogeneous heterogeneous plaque formation at plaque formation at the bifurcation, the bifurcation, origin of the right origin of the left internal carotid internal carotid artery. artery. Vertebral artery flow is antegrade . Vertebral artery flow is antegrade . Risk Factors History +---------+----+----- + !Diagnosis!Date!Comme nts ! +---------+----+----- + !CAD ! !aortic stenosis ! +---------+----+----- + !Other ! !H/O CVA ! ! ! !H/O kidney disease ! +---------+----+----- + Velocities are measured in cm/s ; Diameters are measured in cm Carotid Right Measurements + +-------- +-------+-------+---- --+ +------ + !Location !PSV !EDV !Angle !RI !%Stenosis !Tortuosity ! + +-------- +-------+-------+---- --+ +------ + !Prox CCA !60.35 !17.15 ! !0.72 ! ! ! + +-------- +-------+-------+---- --+ +------ + !Mid CCA !58.9 !19.56 ! !0.67 ! ! ! + +-------- +-------+-------+---- --+ +------ + !Dist CCA !65.84 !14.93 ! !0.77 ! ! ! + +-------- +-------+-------+---- --+ +------ + !Bulb !99.73 !35.86 ! !0.64 ! ! ! + +-------- +-------+-------+---- --+ +------ + !Prox ICA !106.85 !40.57 ! !0.62 ! ! ! + +-------- +-------+-------+---- --+ +------ + !Mid ICA !125.31 !38.62 ! !0.69 ! ! ! + +-------- +-------+-------+---- --+ +------ + !Dist ICA !94.43 !32.77 ! !0.65 ! ! ! + +-------- +-------+-------+---- --+ +------ + !Prox ECA !70.08 !9.72 ! !0.86 ! ! ! + +-------- +-------+-------+---- --+ +------ + !Vertebral !32.03 !11.4 ! !0.64 ! ! ! + +-------- +-------+-------+---- --+ +------ + - There is antegrade vertebral flow noted on the right side. - Additional Measurements:ICAPSV/C CAPSV 2.08.ICAEDV/CCAEDV 2.37. Carotid Left Measurements + +------- -+--------+--------+- ------+ +- + !Location !PSV !EDV !Angle !RI !%Stenosis !Tortuosity ! + +------- -+--------+--------+- ------+ +- + !Prox CCA !56.4 !10.13 ! !0.82 ! ! ! + +------- -+--------+--------+- ------+ +- + !Mid CCA !49.4 !10.12 ! !0.8 ! ! ! + +------- -+--------+--------+- ------+ +- + !Dist CCA !52.29 !11.64 ! !0.78 ! ! ! + +------- -+--------+--------+- ------+ +- + !Bulb !61.3 !12.71 ! !0.79 ! ! ! + +------- -+--------+--------+- ------+ +- + !Prox ICA !59.9 !17.31 ! !0.71 ! ! ! + +------- -+--------+--------+- ------+ +- + !Mid ICA !50.49 !15.64 ! !0.69 ! ! ! + +------- -+--------+--------+- ------+ +- + !Dist ICA !77.16 !20.09 ! !0.74 ! ! ! + +------- -+--------+--------+- ------+ +- + !Prox ECA !71.46 !5.25 ! !0.93 ! ! ! + +------- -+--------+--------+- ------+ +- + !Vertebral !77.16 !17.81 ! !0.77 ! ! ! + +------- -+--------+--------+- ------+ +- + - Additional Measurements:ICAPSV/C CAPSV 1.37.ICAEDV/CCAEDV 1.98. [employer] Work Phone: [facility] Lower Extremity Vein Mapping Procedure Patient Name RHETT Date of Study 06/27/2019 ELEANOR Hay Date of 1950 Gender Female Age 68 year(s) Race Room Number op Corporate ID # [id number] Patient MR # [id number] Equal Opportunity Director Sandra Hoff, Juanita Interpreting Physician Godfrey John Referring Referring Physician Vasiliy Garcia Nurse Practitioner Procedure Type of Study: Veins: Lower Extremity Vein Mapping. Indications for Study:Pre-op OHS. Patient Status:Out Patient. Conclusions Summary No DVT in the bilateral common femoral veins. Vein sizes are listed in the table above. Signature - - - - Findings: Right Impression: Left Impression: Common femoral and femoral veins are Common femoral and femoral compressible. Two small hematomas with no veins are compressible. color flow identified. Risk Factors History +---------+----+----- + !Diagnosis!Date!Comme nts ! +---------+----+----- + !CAD ! !aortic stenosis ! +---------+----+----- + !Other ! !H/O CVA ! ! ! !H/O kidney disease ! +---------+----+----- + - The patient's risk factor(s) include: diabetes mellitus, dyslipidemia and arterial hypertension. Velocities are measured in cm/s ; Diameters are measured in cm + ++- -------+-----+----+-- ------+-----+ !Superficial - Great Saphenous Vein !!Right ! !Left! ! ! + ++- -------+-----+----+-- ------+-----+ !Location !!Diameter!Depth! !Diameter!Depth! + ++- -------+-----+----+-- ------+-----+ !Sapheno Femoral Junction !!0.37 ! ! !0.5 ! ! + ++- -------+-----+----+-- ------+-----+ !GSV Mid Thigh !!0.21 ! ! !0.22 ! ! + ++- -------+-----+----+-- ------+-----+ !GSV Knee !!0.19 ! ! !0.26 ! ! + ++- -------+-----+----+-- ------+-----+ !GSV High Calf !!0.23 ! ! !0.26 ! ! + ++- -------+-----+----+-- ------+-----+ !GSV Low Calf !!0.16 ! ! !0.25 ! ! + ++- -------+-----+----+-- ------+-----+ !GSV Ankle !!0 ! ! !0.15 ! ! + ++- -------+-----+----+-- ------+-----+ + ++- -------+-----+----+-- ------+-----+ !Superficial - Lesser Saphenous Vein !!Right ! !Left! ! ! + ++- -------+-----+----+-- ------+-----+ !Location !!Diameter!Depth! !Diameter!Depth! + ++- -------+-----+----+-- ------+-----+ !SSV High Calf !!0.23 ! ! !0.12 ! ! + ++- -------+-----+----+-- ------+-----+ !SSV Mid Calf !!0.2 ! ! !0.15 ! ! + ++- -------+-----+----+-- ------+-----+ !SSV Low Calf !!0.16 ! ! !0.17 ! ! + ++- -------+-----+----+-- ------+-----+ !SSV Ankle !!0.16 ! ! !0 ! ! + ++- -------+-----+----+-- ------+-----+ [employer] Phone: [place], [facility] Incoming Cardio Results From [facility]/ - 06/27/2019 7:56 PM [facility] Vascular Lower Extremity Vein Mapping Procedure Patient Name RHETT Date of Study 06/27/2019 ELEANOR Hay Date of 1950 Gender Female Age 68 year(s) Race Room Number op Corporate ID # [id number] Patient MR # [id number] Equal Opportunity Director Sandra Hoff RVT Interpreting Physician Godfrey John Referring Referring Physician Vasiliy Garcia Nurse Practitioner Procedure Type of Study: Veins: Lower Extremity Vein Mapping. Indications for Study:Pre-op OHS. Patient Status:Out Patient. Conclusions Summary No DVT in the bilateral common femoral veins. Vein sizes are listed in the table above. Signature - - - - Findings: Right Impression: Left Impression: Common femoral and femoral veins are Common femoral and femoral compressible. Two small hematomas with no veins are compressible. color flow identified. Risk Factors History +---------+----+----- + !Diagnosis!Date!Comme nts ! +---------+----+----- + !CAD ! !aortic stenosis ! +---------+----+----- + !Other ! !H/O CVA ! ! ! !H/O kidney disease ! +---------+----+----- + - The patient's risk factor(s) include: diabetes mellitus, dyslipidemia and arterial hypertension. Velocities are measured in cm/s ; Diameters are measured in cm + ++- -------+-----+----+-- ------+----- + !Superficial - Great Saphenous Vein !!Right ! !Left! ! ! + ++- -------+-----+----+-- ------+----- + !Location !!Diameter!Depth! !Diameter!Depth! + ++- -------+-----+----+-- ------+----- + !Sapheno Femoral Junction !!0.37 ! ! !0.5 ! ! + ++- -------+-----+----+-- ------+----- + !GSV Mid Thigh !!0.21 ! ! !0.22 ! ! + ++- -------+-----+----+-- ------+----- + !GSV Knee !!0.19 ! ! !0.26 ! ! + ++- -------+-----+----+-- ------+----- + !GSV High Calf !!0.23 ! ! !0.26 ! ! + ++- -------+-----+----+-- ------+----- + !GSV Low Calf !!0.16 ! ! !0.25 ! ! + ++- -------+-----+----+-- ------+----- + !GSV Ankle !!0 ! ! !0.15 ! ! + ++- -------+-----+----+-- ------+----- + + ++- -------+-----+----+-- ------+----- + !Superficial - Lesser Saphenous Vein !!Right ! !Left! ! ! + ++- -------+-----+----+-- ------+----- + !Location !!Diameter!Depth! !Diameter!Depth! + ++- -------+-----+----+-- ------+----- + !SSV High Calf !!0.23 ! ! !0.12 ! ! + ++- -------+-----+----+-- ------+----- + !SSV Mid Calf !!0.2 ! ! !0.15 ! ! + ++- -------+-----+----+-- ------+----- + !SSV Low Calf !!0.16 ! ! !0.17 ! ! + ++- -------+-----+----+-- ------+----- + !SSV Ankle !!0.16 ! ! !0 ! ! + ++- -------+-----+----+-- ------+----- + [employer] Phone: Cult,Urine,CCon 06-26-2019 Cult,Urine,CC Specimen Description .CLEAN CATCH URINE Special Requests NOT REPORTED Culture NO GROWTH Report Status FINAL 06/26/2019 Normal [facility] Comment on above: Performed By: #### C DP, PFA, CP, GLYHGB #### [facility] [address] [place], [place] [id number] Corrosion Control Specialist: Savage Jacob MD EKG 12 Leadon 06-26-2019 Atrial Rate 76 BPM [employer] Phone: P [place] 54 degrees [employer] Phone: P-R Interval 162 ms [employer] Phone: Q-T Interval 406 ms [employer] Phone: QRS Duration 86 ms [employer] Phone: QTc Calculation (Bazett) 456 ms [employer] Phone: R [place] 9 degrees [employer] Phone: T [place] 39 degrees [employer] Phone: Ventricular Rate 76 BPM [employer] Work Phone: Sinus rhythm with occasional Premature ventricular complexes Otherwise normal ECG No previous ECGs available [employer] Phone: [place], [facility] Incoming Ekg Results From [employer] - 06/26/2019 5:35 PM EST Sinus rhythm with occasional Premature ventricular complexes Otherwise normal ECG No previous ECGs available [employer] Phone: MRSA DNA Probe, Nasalon MRSA, DNA, Nasal NEGATIVE: MRSA DNA not detected by nucleic acid amplification. NEGATIVE: MRSA DNA not detected by nucleic acid amplificati [facility] [email or web address] Phone: Comment on above: Results should be used as an adjunct to nosocomial control efforts to identify patients needing enhanced precautions. The test is not intended to identify patients with staphylococcal infections. Results should not be used to guide or monitor treatment for MRSA infections. Specimen Description .NASAL SWAB [facility] [email or web address] Phone: MRSA, DNA, Nasalon 0 MRSA, DNA, Nasal NEGATIVE: MRSA DNA not detected by nucleic acid amplification. Normal [facility] Comment on above: Result Comment: Results should be used as an adjunct to nosocomial control efforts to identify patients needing enhanced precautions. The test is not intended to identify patients with staphylococcal infections. Results should not be used to guide or monitor treatment for MRSA infections. Performed By: #### C DP, PFA, CP, GLYHGB #### [facility] [address] [place] [address] [phone] Corrosion Control Specialist: Savage Jacob MD Urine culture clean catchon 06-26-2019 Culture NO GROWTH [facility]: Special Requests NOT REPORTED [facility] [email or web address] Phone: Specimen Description .CLEAN CATCH URINE [facility] Phone: APTTon 06-25-2019 aPTT Coag (Bld) [Time] 22.5 s Normal 20.5-30.5 [facility] Comment on above: Performed By: #### P T, PTT #### [facility] [address] [place] [address] [phone] Corrosion Control Specialist: Savage Jacob MD aPTT Coag (Bld) [Time] 22.5 s [facility] [email or web address] Phone: Arterial Blood Gas, POCon Graham Test Positive [facility] [email or web address] Phone: aPTT Coag (Bld) [Time] NOT REPORTED [facility] [email or web address] Phone: FIO2 21.0 [employer] Work Phone: Interpretation and review of laboratory results Abnormal [employer] Work Phone: Mode NOT REPORTED [employer] Work Phone: Negative Base Excess, Art NOT REPORTED [employer] Work Phone: O2 Device/Flow/% Room Air [employer] Work Phone: Oxygen saturation in Blood 98 % 94 - 98 % [employer] Work Phone: POC HCO3 24.1 mmol/L 21 - 28 mmol/L [employer] Work Phone: POC pCO2 32.7 Low [employer] Work Phone: POC pCO2 Temp NOT REPORTED mm Hg [employer] Work Phone: POC pH 7.477 High [employer] [facility] Work Phone: POC pH Temp NOT REPORTED [employer] [facility] Work Phone: POC PO2 102.5 [employer] Work Phone: POC pO2 Temp NOT REPORTED mm Hg [facility] Work Phone: Positive Base Excess, Art 1 [employer] Work Phone: Sample Site Left Radial Artery [employer] Work Phone: TCO2 (calc), Art 25 mmol/L 22 - 29 mmol/L [employer] Work Phone: CBC Auto Differentialon 02-0 3-2020 Basophils (Bld) [#/Vol] 0.06 10*3/uL [employer] Work Phone: Basophils/100 WBC (Bld) 1 % 0 - 2 % [employer] Work Phone: Differential Type NOT REPORTED [employer] Work Phone: Eosinophils (Bld) [#/Vol] 0.37 10*3/uL [employer] Phone: Eosinophils/100 WBC (Bld) 6 % High 1 - 4 % [employer] Phone: Erythrocyte distribution width (RBC) [Ratio] 13.1 % 11.8 - 14.4 % [employer] Phone: Hematocrit (Bld) [Volume fraction] 29.9 % Low 36.3 - 47.1 % [employer] Phone: Hemoglobin (Bld) [Mass/Vol] 9.8 g/dL Low 11.9 - 15.1 g/dL [employer] Phone: Immature granulocytes (Bld) [#/Vol] 10*3/uL [employer] Phone: Immature granulocytes (Bld) [#/Vol] 0 % 0 [employer] Phone: Interpretation and review of laboratory results Abnormal [employer] Phone: Lymphocytes (Bld) [#/Vol] 2.04 10*3/uL [employer] Phone: Lymphocytes/100 WBC (Bld) 33 % 24 - 43 % [employer] Phone: MCH (RBC) [Entitic mass] 29.2 pg 25.2 - 33.5 pg [employer] Phone: MCHC (RBC) [Mass/Vol] 32.8 g/dL 28.4 - 34.8 g/dL [employer] Phone: MCV (RBC) [Entitic vol] 89.0 fL 82.6 - 102.9 fL [employer] Phone: Monocytes (Bld) [#/Vol] 0.44 10*3/uL [employer] Phone: Monocytes/100 WBC (Bld) 7 % 3 - 12 % [employer] Phone: Platelet mean volume (Bld) [Entitic vol] 8.9 fL 8.1 - 13.5 fL [employer] Phone: Platelets (Bld) [#/Vol] NOT REPORTED [employer] Phone: Platelets (Bld) [#/Vol] 309 10*3/uL [employer] Phone: RBC (Bld) [#/Vol] 3.36 10*6/uL Low 3.95 - 5.1 1 m/uL [employer] Work Phone: RBC morphology finding Nom (Bld) NOT REPORTED [employer] Work Phone: Segmented neutrophils/100 WBC (Bld) 53 % 36 - 65 % [employer] Phone: Segs Absolute 3.34 [employer] Work Phone: WBC (Bld) [#/Vol] 0.0 10*3/uL 0.0 per 10 0 WBC [employer] Work Phone: WBC (Bld) [#/Vol] 6.3 10*3/uL [employer] Phone: WBC Morphology NOT REPORTED [employer] Work Phone: CBC with Diffon 06-25-2019 Abs. Basophil 0.06 k/uL Normal 0.00-0.20 [facility] Comment on above: Performed By: #### C DP, PFA, CP, GLYHGB #### [facility] [address] [place] [address] [phone] Corrosion Control Specialist: Savage Jacob MD Abs.Imm.Granulocyte <0.03 Normal 0.00-0.30 [facility] Comment on above: Performed By: #### C DP, PFA, CP, GLYHGB #### [facility] [address] [place] [address] [phone] Corrosion Control Specialist: Savage Jacob MD Abs.Neutrophil (Seg) 3.34 k/uL Normal 1.50-8.10 [facility] Comment on above: Performed By: #### C DP, PFA, CP, GLYHGB #### [address] [address] Corrosion Control Specialist: Savage Jacob MD Basophils/100 WBC (Bld) 1 % Normal 0-2 [facility] Comment on above: Performed By: #### C DP, PFA, CP, GLYHGB #### [place] [address] Corrosion Control Specialist: Savage Jacob MD Eosinophils (Bld) [#/Vol] 0.37 10*3/uL Normal 0.00-0.44 [facility] Comment on above: Performed By: #### C DP, PFA, CP, GLYHGB #### [place] [address] Corrosion Control Specialist: Savage Jacob MD Eosinophils/100 WBC (Bld) 6 % High 1-4 [facility] Comment on above: Performed By: #### C DP, PFA, CP, GLYHGB #### [place] [address] Corrosion Control Specialist: Savage Jacob MD Erythrocyte distribution width (RBC) [Ratio] 13.1 % Normal 11.8-14.4 [facility] Comment on above: Performed By: #### C DP, PFA, CP, GLYHGB #### [place] [address] Corrosion Control Specialist: Savage Jacob MD Hematocrit (Bld) [Volume fraction] 29.9 % Low 36.3-47.1 [facility] Comment on above: Performed By: #### C DP, PFA, CP, GLYHGB #### [place] [address] Corrosion Control Specialist: Savage Jacob MD Hemoglobin (Bld) [Mass/Vol] 9.8 g/dL Low 11.9-15.1 [facility] Comment on above: Performed By: #### C DP, PFA, CP, GLYHGB #### [address] [address] Corrosion Control Specialist: Savage Jacob MD Immature granulocytes (Bld) [#/Vol] 0 % Normal 0 [facility] Comment on above: Performed By: #### C DP, PFA, CP, GLYHGB #### [address] [address] Corrosion Control Specialist: Savage Jacob MD Lymphocytes (Bld) [#/Vol] 2.04 10*3/uL Normal 1.10-3.70 [facility] Comment on above: Performed By: #### C DP, PFA, CP, GLYHGB #### [place] [address] Corrosion Control Specialist: Savage Jacob MD Lymphocytes/100 WBC (Bld) 33 % Normal 24-43 [facility] Comment on above: Performed By: #### C DP, PFA, CP, GLYHGB #### [address] [address] Corrosion Control Specialist: Savage Jacob MD MCH (RBC) [Entitic mass] 29.2 pg Normal 25.2-33.5 [facility] Comment on above: Performed By: #### C DP, PFA, CP, GLYHGB #### [address] [address] Corrosion Control Specialist: Savage Jacob MD MCHC (RBC) [Mass/Vol] 32.8 g/dL Normal 28.4-34.8 [facility] Comment on above: Performed By: #### C DP, PFA, CP, GLYHGB #### [address] [address] Corrosion Control Specialist: Savage Jacob MD MCV (RBC) [Entitic vol] 89.0 fL Normal 82.6-102.9 [facility] Comment on above: Performed By: #### C DP, PFA, CP, GLYHGB #### [address] [address] Corrosion Control Specialist: Savage Jacob MD Monocytes (Bld) [#/Vol] 0.44 10*3/uL Normal 0.10-1.20 [facility] Comment on above: Performed By: #### C DP, PFA, CP, GLYHGB #### [address] [address] Corrosion Control Specialist: Savage Jacob MD Monocytes/100 WBC (Bld) 7 % Normal 3-12 [facility] Comment on above: Performed By: #### C DP, PFA, CP, GLYHGB #### [address] [address] Corrosion Control Specialist: Savage Jacob MD Neutrophil (Seg) 53 % Normal 36-65 [facility] Comment on above: Performed By: #### C DP, PFA, CP, GLYHGB #### [address] [address] Corrosion Control Specialist: Savage Jacob MD NRBC Automated 0.0 per 100 WBC Normal 0.0 [facility] Comment on above: Performed By: #### C DP, PFA, CP, GLYHGB #### [address] [address] Corrosion Control Specialist: Savage Jacob MD Platelet mean volume (Bld) [Entitic vol] 8.9 fL Normal 8.1-13.5 [facility] Comment on above: Performed By: #### C DP, PFA, CP, GLYHGB #### [address] [address] Corrosion Control Specialist: Savage Jacob MD Platelets (Bld) [#/Vol] 309 10*3/uL Normal 138-453 [facility] Comment on above: Performed By: #### C DP, PFA, CP, GLYHGB #### [address] [address] Corrosion Control Specialist: Savage Jacob MD RBC (Bld) [#/Vol] 3.36 10*6/uL Low 3.95-5.11 [facility] Comment on above: Performed By: #### C DP, PFA, CP, GLYHGB #### [address] [address] Corrosion Control Specialist: Savage Jacob MD WBC (Bld) [#/Vol] 6.3 10*3/uL Normal 3.5-11.3 [facility] Comment on above: Performed By: #### C DP, PFA, CP, GLYHGB #### [address] [address] Corrosion Control Specialist: Savage Jacob MD Auto Diff Performed NOT REPORTED Normal [facility] Comment on above: Performed By: #### C DP, PFA, CP, GLYHGB #### [address] [address] Corrosion Control Specialist: Savage Jacob MD Platelets (Bld) [#/Vol] NOT REPORTED Normal [facility] Comment on above: Performed By: #### C DP, PFA, CP, GLYHGB #### [address] [address] Corrosion Control Specialist: Savage Jacob MD RBC morphology finding Nom (Bld) NOT REPORTED Normal [facility] Comment on above: Performed By: #### C DP, PFA, CP, GLYHGB #### [address] [address] Corrosion Control Specialist: Savage Jacob MD WBC Morphology NOT REPORTED Normal [facility] Comment on above: Performed By: #### C DP, PFA, CP, GLYHGB #### [facility] [employer] [address] [place] [phone] Corrosion Control Specialist: Savage Jacob MD Comp Metabolic Profon 2019 (cont.) Normal [facility] Comment on above: Result Comment: Aver age GFR for 70 or more years old: 75 mL/min/1.73sq m Chronic Kidney Disease: <60 mL/min/1.73sq m Kidney failure: <15 mL/min/1.73sq m eGFR calculated using average adult body mass. Additional eGFR calculator available at: http://www.Dibsie/multiple_crcl_2011.htm Performed By: #### C DP, PFA, CP, GLYHGB #### [facility] [employer] [address] [place] [phone] Corrosion Control Specialist: Savage Jacob MD Albumin [Mass/Vol] 4.7 g/dL Normal 3.5-5.2 [facility] Comment on above: Performed By: #### C DP, PFA, CP, GLYHGB #### [address] [address] Corrosion Control Specialist: Savage Jacob MD Albumin/Globulin [Mass ratio] 1.4 {ratio} Normal 1.0-2.5 [facility] Comment on above: Performed By: #### C DP, PFA, CP, GLYHGB #### [facility] [employer] [address] [place] [id number] Corrosion Control Specialist: Savage Jacob MD Alkaline Phos 70 U/L Normal 35-104 [facility] Comment on above: Performed By: #### C DP, PFA, CP, GLYHGB #### [facility] [employer] [address] [place] [phone] Corrosion Control Specialist: Savage Jacob MD ALT [Catalytic activity/Vol] 9 U/L Normal 5-33 [facility] Comment on above: Performed By: #### C DP, PFA, CP, GLYHGB #### [facility] [employer] [address] [place] [phone] Corrosion Control Specialist: Savage Jacob MD Anion gap [Moles/Vol] 18 mmol/L High 9-17 [facility] Comment on above: Performed By: #### C DP, PFA, CP, GLYHGB #### [address] [address] Corrosion Control Specialist: Savage Jacob MD AST [Catalytic activity/Vol] 17 U/L Normal <32 [facility] Comment on above: Performed By: #### C DP, PFA, CP, GLYHGB #### [address] [address] Corrosion Control Specialist: Savage Jacob MD Bilirubin Ql (U) 0.24 mg/dL Low 0.3-1.2 [facility] Comment on above: Performed By: #### C DP, PFA, CP, GLYHGB #### [facility] [employer] [address] [place] [phone] Corrosion Control Specialist: Savage Jacob MD Calcium [Mass/Vol] 9.8 mg/dL Normal 8.6-10.4 [facility] Comment on above: Performed By: #### C DP, PFA, CP, GLYHGB #### [facility] [employer] [address] [place] [phone] Corrosion Control Specialist: Savage Jacob MD Chloride [Moles/Vol] 103 mmol/L Normal 98-107 [facility] Comment on above: Performed By: #### C DP, PFA, CP, GLYHGB #### [facility] [employer] [address] [place] [phone] Corrosion Control Specialist: Savage Jacob MD CO2 [Moles/Vol] 21 mmol/L Normal 20-31 [facility] Comment on above: Performed By: #### C DP, PFA, CP, GLYHGB #### [facility] [employer] [address] [place] [phone] Corrosion Control Specialist: Savage Jacob MD Creatinine [Mass/Vol] 1.23 mg/dL High 0.50-0.90 [facility] Comment on above: Performed By: #### C DP, PFA, CP, GLYHGB #### [facility] [employer] [address] [place] [address] Corrosion Control Specialist: Savage Jacob MD GFR, Amer 52 mL/min Low >60 [facility] Comment on above: Performed By: #### C DP, PFA, CP, GLYHGB #### [facility] [employer] [address] [place] [address] Corrosion Control Specialist: Savage Jacob MD GFR,non Amer 43 mL/min Low >60 [facility] Comment on above: Performed By: #### C DP, PFA, CP, GLYHGB #### [facility] [employer] [address] [place] [address] Corrosion Control Specialist: Savage Jacob MD Glucose [Mass/Vol] 111 mg/dL High 70-99 [facility] Comment on above: Performed By: #### C DP, PFA, CP, GLYHGB #### [facility] [employer] [address] [place] [address] Corrosion Control Specialist: Savage Jacob MD Potassium [Moles/Vol] 4.7 mmol/L Normal 3.7-5.3 [facility] Comment on above: Performed By: #### C DP, PFA, CP, GLYHGB #### [facility] [employer] [address] [place] [address] Corrosion Control Specialist: Savage Jacob MD Protein [Mass/Vol] 8.0 g/dL Normal 6.4-8.3 [facility] Comment on above: Performed By: #### C DP, PFA, CP, GLYHGB #### [facility] [address] [place] [address] Corrosion Control Specialist: Savage Jacob MD Sodium [Moles/Vol] 142 mmol/L Normal 135-144 [facility] Comment on above: Performed By: #### C DP, PFA, CP, GLYHGB #### [facility] [employer] [address] [place] [address] Corrosion Control Specialist: Savage Jacob MD Urea nitrogen [Mass/Vol] 25 mg/dL High 8-23 [facility] Comment on above: Performed By: #### C DP, PFA, CP, GLYHGB #### [facility] [employer] [address] [place] [address] Corrosion Control Specialist: Savage Jacob MD BUN/CRE Ratio NOT REPORTED Normal - [facility] Comment on above: Performed By: #### C DP, PFA, CP, GLYHGB #### [facility] [address] [place] [address] Corrosion Control Specialist: Savage Jacob MD Staging: NOT REPORTED Normal [facility] Comment on above: Performed By: #### C DP, PFA, CP, GLYHGB #### [facility] [employer] [facility] [place] [address] Corrosion Control Specialist: Savage Jacob MD Comprehensive Metabolic Pane [facility] 06-25-2019 Albumin [Mass/Vol] 4.7 g/dL 3.5 - 5.2 g/dL [employer] Phone: Albumin/Globulin [Mass ratio] 1.4 {ratio} [employer] Phone: ALP [Catalytic activity/Vol] 70 U/L 35 - 104 U/L [employer] Phone: ALT [Catalytic activity/Vol] 9 U/L 5 - 33 U/L [employer] Phone: Anion gap [Moles/Vol] 18 mmol/L High 9 - 17 mmol/L [employer] Phone: AST [Catalytic activity/Vol] 17 U/L <32 [employer] Phone: Bilirubin Ql (U) 0.24 mg/dL Low 0.3 - 1.2 mg/dL [employer] Phone: Bun/Cre Ratio NOT REPORTED [employer] Work Phone: Calcium [Mass/Vol] 9.8 mg/dL 8.6 - 10. 4 mg/dL [employer] Phone: Chloride [Moles/Vol] 103 mmol/L 98 - 10 7 mmol/L [employer] Phone: CO2 [Moles/Vol] 21 mmol/L 20 - 31 mmol/L [employer] Phone: Creatinine [Mass/Vol] 1.23 mg/dL High 0.5 - 0.9 mg/dL [employer] Phone: GFR 52 mL/min Low >60 [employer] Phone: GFR Non- 43 mL/min Low >60 [employer] Phone: GFR/1.73 sq M predicted among non-blacks MDRD (S/P/Bld) [Vol rate/Area] NOT REPORTED [employer] Phone: GFR/1.73 sq M predicted among non-blacks MDRD (S/P/Bld) [Vol rate/Area] [employer] Phone: Comment on above: Average GFR for 70 o r more years old: 75 mL/min/1.73sq m Chronic Kidney Disease: <60 mL/min/1.73sq m Kidney failure: <15 mL/min/1.73sq m eGFR calculated using average adult body mass. Additional eGFR calculator available at: http://www.[employer]image.[employer] [place]/multiple_crcl_2012.htm Glucose [Mass/Vol] 111 mg/dL High 70 - 99 mg/dL [facility] [email or web address] Phone: Interpretation and review of laboratory results Abnormal [facility] Phone: Potassium [Moles/Vol] 4.7 mmol/L 3.7 - 5.3 mmol/L [facility] [email or web address] Phone: Protein [Mass/Vol] 8.0 g/dL 6.4 - 8.3 g/dL [facility] [email or web address] Phone: Sodium [Moles/Vol] 142 mmol/L 135 - 144 mmol/L [facility] Phone: Urea nitrogen [Mass/Vol] 25 mg/dL High 8 - 23 mg/dL [facility] [email or web address] Phone: HEMOGLOBIN A1Con 06-25-2019 Glucose [Mass/Vol] 134 mg/dL [facility] [email or web address] Phone: Comment on above: The ADA and AACC rec ommend providing the estimated average glucose result to permit better patient understanding of their HBA1c result. HbA1c (Bld) [Mass fraction] 6.3 % High 4 - 6 % [facility] [email or web address] Phone: Interpretation and review of laboratory results Abnormal [facility] Phone: Hemoglobin A1Con 06-25-2019 HbA1c (Bld) [Mass fraction] 6.3 % High 4.0-6.0 [facility] Comment on above: Performed By: #### C DP, PFA, CP, GLYHGB #### [facility] [address] [place], [place] [phone] Corrosion Control Specialist: Savage Jacob MD HbA1c (Bld) [Mass fraction] 134 mg/dL Normal [facility] Comment on above: Result Comment: The ADA and AACC recommend providing the estimated average glucose result to permit better patient understanding of their HBA1c result. Performed By: #### C DP, PFA, CP, GLYHGB #### [facility] [address] [place], [place] [phone] Corrosion Control Specialist: Savage Jacob MD MRSA, DNA, Nasalon 0 Specimen Description .NASAL SWAB Normal [facility] Comment on above: Performed By: #### C DP, PFA, CP, GLYHGB #### [facility] [address] [place], [place] [phone] Corrosion Control Specialist: Savage Jacob MD Microscopic Urinalysison Amorphous, UA NOT REPORTED None [employer] Work Phone: Bacteria, UA NOT REPORTED None [employer] [facility] Work Phone: Casts UA 0 TO 2 HYALINE Reference range defined for non-centrifuged specimen. [employer] Work Phone: Crystals UA NOT REPORTED None /HPF [employer] Work Phone: Epithelial Cells UA 0 TO 2 [employer] Work Phone: Mucus, UA NOT REPORTED None [employer] Work Phone: Other Observations UA NOT REPORTED NOT REQ. M [facility] Work Phone: RBC (U) [#/Vol] None [employer] Work Phone: Comment on above: Reference range defi zuly for non-centrifuged specimen. Renal Epithelial, Urine NOT REPORTED 0 /HPF [employer] Work Phone: Trichomonas, UA NOT REPORTED None [employer] Work Phone: WBC, UA None [employer] Work Phone: Yeast, UA NOT REPORTED None [employer] Work Phone: - [employer] Work Phone: Otheron 06-25-2019 Stable negative chest. [employer] Work Phone: EXAMINATION: TWO XRA Y VIEWS OF THE CHEST 06/25/2019 12:58 pm COMPARISON: 05/10/2019 HISTORY: Reason for Exam: pre op CAD FINDINGS: The lungs are without acute focal process. No effusion or pneumothorax. The cardiomediastinal silhouette is normal. 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 [employer] Phone: [place], Mhpn Incoming Radiant Results From [employer] - 06/25/2019 2:05 PM EST EXAMINATION: TWO XRAY VIEWS OF THE CHEST 06/25/2019 12:58 pm COMPARISON: 05/10/2019 HISTORY: Reason for Exam: pre op CAD FINDINGS: The lungs are without acute focal process. No effusion or pneumothorax. The cardiomediastinal silhouette is normal. 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 IMPRESSION: Stable negative chest. [employer] Phone: PTon 06-25-2019 INR Coag (PPP) [Relative time] 0.9 {INR} Normal [facility] Comment on above: Result Comment: Therapeutic Range: Moderate Anticoagulant Intensity: INR = 2.0-3.0 High Anticoagulant Intensity: INR = 2.5-3.5 Performed By: #### P T, PTT #### [address] [address] Corrosion Control Specialist: Savage Jacob MD PT Coag (PPP) [Time] 9.8 s Normal 9.0-12.0 [facility] Comment on above: Performed By: #### P T, PTT #### [address] [address] Corrosion Control Specialist: Savage Jacob MD Platelet Functionon 06-25-19 20 Collagen/ADP 142 sec High 67-112 [facility] Comment on above: Performed By: #### C DP, PFA, CP, GLYHGB #### [facility] [employer] [address] [place] [address] Corrosion Control Specialist: Savage Jacob MD Collagen/EPI >300 High 85-172 [facility] Comment on above: Performed By: #### C DP, PFA, CP, GLYHGB #### [address] [address] Corrosion Control Specialist: Savage Jacob MD Interpretation Abnormal platelet function. Normal [facility] Comment on above: Result Comment: Comm on pattern seen in von Willebrand disease and congenital platelet defects. Pattern can also be seen in thrombocytopenia (Platelet <150,000/ul), anemia (Hematocrit <35%), renal and cardiovascular disease. Primary hemostasis defect can place a patient at increased risk for bleeding during a surgical procedure. After correlation with clinical history, further evaluation of primary hemostasis could be considered, such as platelet aggregation tests and/or von Willebrand workup. PFA results on patients treated with Plavix (clopidogrel) have not been established. Performed By: #### C DP, PFA, CP, GLYHGB #### [facility] [address] [place] [address] Corrosion Control Specialist: Savage Jacob MD Platelet function teston SHASHI/EPI Clos Time >300 High [employer] Phone: Collagen Adenosine-5'-Diphospha te (Adp) Time 142 High [employer] Phone: Interpretation and review of laboratory results Abnormal [employer] Phone: Platelet Function Interp Abnormal platelet function. [employer] Phone: Comment on above: Common pattern seen in von Willebrand disease and congenital platelet defects. Pattern can also be seen in thrombocytopenia (Platelet <150,000/ul), anemia (Hematocrit <35%), renal and cardiovascular disease. Primary hemostasis defect can place a patient at increased risk for bleeding during a surgical procedure. After correlation with clinical history, further evaluation of primary hemostasis could be considered, such as platelet aggregation tests and/or von Willebrand workup. PFA results on patients treated with Plavix (clopidogrel) have not been established. [employer] 06-25-2019 INR Coag (PPP) [Relative time] 0.9 {INR} [employer] Phone: Comment on above: Therapeutic Range: Moderate Anticoagulant Intensity: INR = 2.0-3.0 High Anticoagulant Intensity: INR = 2.5-3.5 PT Coag (PPP) [Time] 9.8 s [facility] [employer] Work Phone: TYPE AND SCREENon 06-25-2019 ABO/Rh Positive [facility] Work Phone: Arm Band Number [id number] [facility] Work Phone: Expiration Date 07/06/2019,2359 [facility] [employer] Work Phone: Type + Screenon 06-25-2019 Type + Screen Sample Expiration 07/06/2019,2359 Arm Band Number [id number] ABO/Rh(D) A POSITIVE Antibody Screen NEGATIVE Normal [facility] Comment on above: Performed By: #### T YS #### [facility] [employer] [facility] [place] [address] Corrosion Control Specialist: Savage Jacob MD Urinalysison 06-25-2019 Bilirubin Urine Negative NEGATIVE [facility] Work Phone: Color, UA YELLOW YELLOW [facility] [employer] Work Phone: Glucose, Ur Negative NEGATIVE [facility] Work Phone: Interpretation and review of laboratory results Abnormal [facility] Work Phone: Ketones Ql (U) Negative NEGATIVE [facility] Work Phone: Leukocyte esterase Test strip Ql (U) Negative NEGATIVE [facility] Work Phone: Nitrite, Urine Negative NEGATIVE [facility] Work Phone: pH, UA 6.5 [facility] [employer] Work Phone: Protein (U) [Mass/Vol] TRACE Abnormal NEGATIVE [facility] [employer] Work Phone: Specific [place], UA 1.017 [facility] [employer] Work Phone: Turbidity UA CLEAR CLEAR [facility] [employer] Work Phone: Urinalysis Comments NOT REPORTED [facility] [employer] Work Phone: Urine Hgb Negative NEGATIVE [facility] Work Phone: Urobilinogen, Urine Normal Normal [facility] Work Phone: Urinalysis, Routineon 2019 Acetoacetic Acid,Ur Negative Normal NEG [facility] Comment on above: Performed By: #### U A, UMICAO #### [address] [address] Corrosion Control Specialist: Savage Jacob MD Bilirubin, SemiQt,Ur Negative Normal NEG [facility] Comment on above: Performed By: #### U A, UMICAO #### [address] [address] Corrosion Control Specialist: Savage Jacob MD Color (U) YELLOW Normal YEL [facility] Comment on above: Performed By: #### U A, UMICAO #### [address] [address] Corrosion Control Specialist: Savage Jacob MD Glucose Ql (U) Negative Normal NEG [facility] Comment on above: Performed By: #### U A, UMICAO #### [address] [address] Corrosion Control Specialist: Savage Jacob MD Hemoglobin, Ur Negative Normal NEG [facility] Comment on above: Performed By: #### U A, UMICAO #### [facility] [employer] [address] [place] [address] Corrosion Control Specialist: Savage Jacob MD Leukocyte esterase Test strip Ql (U) Negative Normal NEG [facility] Comment on above: Performed By: #### U A, UMICAO #### [facility] [employer] [address] [place] [address] Corrosion Control Specialist: Savage Jacob MD Nitrite,Ur Negative Normal NEG [facility] Comment on above: Performed By: #### U A, UMICAO #### [facility] [employer] [address] [place] [address] Corrosion Control Specialist: Savage Jacob MD pH (U) 6.5 [pH] Normal 5.0-8.0 [facility] Comment on above: Performed By: #### U MARY SanabriaO #### [facility] [employer] [address] [place] [address] Corrosion Control Specialist: Savage Jacob MD Protein Ql (U) TRACE Abnormal NEG [facility] Comment on above: Performed By: #### U DENIZ Sanabria #### [address] [address] Corrosion Control Specialist: Savage Jacob MD Specific gravity (U) [Rel density] 1.017 Normal 1.005-1.030 [facility] Comment on above: Performed By: #### DENIZ Chou #### [address] [address] Corrosion Control Specialist: Savage Jacob MD Turbidity CLEAR Normal CLEAR [facility] Comment on above: Performed By: #### DENIZ Chou #### [address] [address] Corrosion Control Specialist: Savage Jacob MD Urobilinogen,Ur Normal Normal NORM [facility] Comment on above: Performed By: #### DENIZ Chou #### [address] [address] Corrosion Control Specialist: Savage Jacob MD Comment NOT REPORTED Normal [facility] Comment on above: Performed By: #### DENIZ Chou #### [facility] [employer] [address] [place] [address] Corrosion Control Specialist: Savage Jacob MD Urinalysis,Microon 0 ----- Normal [facility] Comment on above: Performed By: #### U ADENIZ #### [facility] [address] [place] [address] Corrosion Control Specialist: Savage Jacob MD Casts LM.LPF (Urine sed) [#/Area] 0 TO 2 HYALINE Normal 0-8 [facility] Comment on above: Result Comment: Refe rence range defined for non-centrifuged specimen. Performed By: #### U A, UMICAO #### [facility] [address] [place] [address] Corrosion Control Specialist: Savage Jacob MD Epithelial cells LM.HPF (Urine sed) [#/Area] 0 TO 2 Normal 0-5 [facility] Comment on above: Performed By: #### U A, UMICAO #### [facility] [address] [place] [address] Corrosion Control Specialist: Savage Jacob MD RBC (U) [#/Vol] None Normal 0-4 [facility] Comment on above: Result Comment: Refe rence range defined for non-centrifuged specimen. Performed By: #### U A, UMICAO #### [address] [address] Corrosion Control Specialist: Savage Jacob MD WBC (U) [#/Vol] None Normal 0-5 [facility] Comment on above: Performed By: #### U A, UMICAO #### [facility] [address] [place] [address] Corrosion Control Specialist: Savage Jacob MD Amorphous sediment LM Ql (Urine sed) NOT REPORTED Normal NONE [facility] Comment on above: Performed By: #### U A, UMICAO #### [facility] [address] [place] [address] Corrosion Control Specialist: Savage Jacob MD Bacteria LM.HPF (Urine sed) [#/Area] NOT REPORTED Normal NONE [facility] Comment on above: Performed By: #### U A, UMICAO #### [facility] [address] [place] [address] Corrosion Control Specialist: Savage Jacob MD Crystals LM Nom (Urine sed) NOT REPORTED Normal NONE [facility] Comment on above: Performed By: #### U A, UMICAO #### [facility] [address] [place] [address] Corrosion Control Specialist: Savage Jacob MD Epithelial, Renal NOT REPORTED Normal 0 [facility] Comment on above: Performed By: #### U A, UMICAO #### [facility] [address] [place] [address] Corrosion Control Specialist: Savage Jacob MD Mucus Strands NOT REPORTED Normal [facility] Comment on above: Performed By: #### U A, UMICAO #### [address] [address] Corrosion Control Specialist: Savage Jacob MD Other Observations NOT REPORTED Normal NREQ [facility] Comment on above: Performed By: #### U A, UMICAO #### [address] [address] Corrosion Control Specialist: Savage Jacob MD Trichomonas NOT REPORTED Normal NONE [facility] Comment on above: Performed By: #### U A, UMICAO #### [address] [address] Corrosion Control Specialist: Savage Jacob MD Yeast LM Ql (Urine sed) NOT REPORTED Normal [facility] Comment on above: Performed By: #### U A, UMICAO #### [address] [address] Corrosion Control Specialist: Savage Jacob MD XR CHEST (2 VW)on 06-25-2019 XR CHEST (2 VW) EXAMINATION: TWO XRAY VIEWS OF THE CHEST 06/25/2019 12:58 pm COMPARISON: 05/10/2019 HISTORY: Reason for Exam: pre op CAD FINDINGS: The lungs are without acute focal process. No effusion or pneumothorax. The cardiomediastinal silhouette is normal. 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 IMPRESSION: Stable negative chest. Interpreted by: Kaylen Ying MD Signed by: Kaylen Ying MD 06/25/19 Final result Normal [facility] POC Glucoseon 06-06-2019 Glucose [Mass/Vol] 141 mg/dL High 65 - 99 mg/dL [facility] Interpretation and review of laboratory results Abnormal [facility] CBC Auto DifferentialOrdered By: Anshul Irizarry on 05-10-2019 [employer] # 0.30 [employer] [facility] Work Phone: Absolute Immature Granulocyte NOT REPORTED [facility] Work Phone: Absolute Lymph # 2.00 [employer] [facility] Work Phone: Absolute [place] # 0.50 [employer] [facility] Work Phone: Basophils (Bld) [#/Vol] 0.10 10*3/uL [employer] Work Phone: Basophils/100 WBC (Bld) 1 % 0 - 2 % [facility] Work Phone: Differential Type YES [facility] Work Phone: Eosinophils/100 WBC (Bld) 5 % 0 - 5 % [employer] Work Phone: Erythrocyte distribution width (RBC) [Ratio] 13.4 % 12.1 - 15.2 % [facility] Work Phone: Hematocrit (Bld) [Volume fraction] 33.0 % Low 36 - 46 % [facility] Work Phone: Hemoglobin (Bld) [Mass/Vol] 11.1 g/dL Low 12 - 16 g/dL [employer] Work Phone: Immature Granulocytes NOT REPORTED 0 % M [facility] Work Phone: Interpretation and review of laboratory results Abnormal [facility] Work Phone: Lymphocytes/100 WBC (Bld) 27 % 15 - 40 % [facility] [employer] Work Phone: MCH (RBC) [Entitic mass] 28.8 pg 26 - 34 pg [facility] [employer] Work Phone: MCHC (RBC) [Mass/Vol] 33.5 g/dL 31 - 37 g/dL M [facility] [employer] Work Phone: MCV (RBC) [Entitic vol] 85.8 fL 80 - 100 fL [facility] [employer] Work Phone: Monocytes/100 WBC (Bld) 7 % 4 - 8 % [facility] [employer] Work Phone: MPV NOT REPORTED 6 - 12 fL [facility] [employer] Work Phone: NRBC Automated NOT REPORTED per 100 WBC [facility] [employer] Work Phone: Platelet Estimate NOT REPORTED [facility] [employer] Work Phone: Platelets (Bld) [#/Vol] 432 10*3/uL [facility] [employer] Work Phone: RBC (Bld) [#/Vol] 3.84 10*6/uL Low 4 - 5.2 m/uL [facility] [employer] Work Phone: RBC morphology finding Nom (Bld) NOT REPORTED [facility] [employer] Work Phone: Segmented neutrophils/100 WBC (Bld) 60 % 47 - 75 % [facility] [employer] Work Phone: Segs [facility] 4.40 [facility] Work Phone: WBC (Bld) [#/Vol] 7.3 10*3/uL [facility] [employer] Work Phone: WBC Morphology NOT REPORTED [facility] Work Phone: Comprehensive Metabolic Pane lOrdered By: Grayson Hernandez on 05-10-2019 Albumin [Mass/Vol] 5 g/dL 3.5 - 5.2 g/dL [facility] [employer] Work Phone: Albumin/Globulin Ratio NOT REPORTED [employer] Phone: ALP [Catalytic activity/Vol] 99 U/L 35 - 104 U/L [employer] Phone: ALT [Catalytic activity/Vol] 9 U/L 5 - 33 U/L [employer] Phone: Anion gap [Moles/Vol] 13 mmol/L 9 - 17 mmol/L [employer] Phone: AST [Catalytic activity/Vol] 14 U/L <32 [employer] Phone: Bilirubin [Mass/Vol] 0.33 mg/dL 0.3 - 1 .2 mg/dL [employer] Phone: Bun/Cre Ratio 17 [employer] Work Phone: Calcium [Mass/Vol] 10.5 mg/dL High 8.6 - 10. 4 mg/dL [employer] Phone: Chloride [Moles/Vol] 103 mmol/L 98 - 10 7 mmol/L [employer] Phone: CO2 [Moles/Vol] 24 mmol/L 20 - 31 mmol/L [employer] Phone: Creatinine [Mass/Vol] 1.33 mg/dL High 0.5 - 0.9 mg/dL [employer] Phone: GFR 48 mL/min Low >60 [employer] Phone: GFR Comment [employer] Phone: Comment on above: Average GFR for 70 o r more years old: 75 mL/min/1.73sq m Chronic Kidney Disease: <60 mL/min/1.73sq m Kidney failure: <15 mL/min/1.73sq m eGFR calculated using average adult body mass. Additional eGFR calculator available at: http://www.Subimage.[employer] [place]/multiple_crcl_2012.htm GFR Non- 39 mL/min Low >60 [employer] Phone: GFR Staging NOT REPORTED [facility] Work Phone: Glucose [Mass/Vol] 128 mg/dL High 70 - 99 mg/dL [facility] [employer] Work Phone: Potassium [Moles/Vol] 4.8 mmol/L 3.7 - 5.3 mmol/L [facility] [employer] Work Phone: Protein [Mass/Vol] 8.6 g/dL High 6.4 - 8.3 g/dL [facility] [employer] Work Phone: Sodium [Moles/Vol] 140 mmol/L 135 - 144 mmol/L [facility] [employer] Work Phone: Urea nitrogen [Mass/Vol] 23 mg/dL 8 - 23 mg/dL [facility] [email or web address] Phone: Hemoglobin [id number] By: Bert Irizarry on 05-10-2019 Glucose [Mass/Vol] 128 mg/dL [facility] [employer] Work Phone: Comment on above: The ADA and AACC rec ommend providing the estimated average glucose result to permit better patient understanding of their HBA1c result. HbA1c (Bld) [Mass fraction] 6.1 % High 4.8 - 5.9 % [facility] [email or web address] Phone: Interpretation and review of laboratory results Abnormal [facility] [email or web address] Phone: Lipid PanelOrdered By: Merrick Hernandez on 05-10-2019 Cholesterol [Mass/Vol] 252 mg/dL High <200 [facility] [employer] Work Phone: Comment on above: Cholesterol Guidelines: <200 Desirable 200-240 Borderline >240 Undesirable Cholesterol in HDL [Mass/Vol] 113 mg/dL >40 [facility] [employer] Work Phone: Comment on above: HDL Guidelines: <40 Undesirable 40-59 Borderline >59 Desirable Cholesterol in LDL [Mass/Vol] 128 mg/dL 0 - 130 mg/dL [facility] [email or web address] Phone: Comment on above: LDL Guidelines: <100 Desirable 100-129 Near to/above Desirable 130-159 Borderline >159 Undesirable Direct (measured) LDL and calculated LDL are not interchangeable tests. Cholesterol.total/Chol esterol in HDL [Mass ratio] 2.2 {ratio} <5 [employer] Phone: Triglyceride [Mass/Vol] 54 mg/dL <150 [employer] Phone: Comment on above: Triglyceride Guidelines: <150 Desirable 150-199 Borderline 200-499 High >499 Very high Based on AHA Guidelines for fasting triglyceride, February 2012. VLDL NOT REPORTED 1 - 30 mg/dL [employer] Work Phone: MagnesiumOrdered By: Anshul castillo on 05-10-2019 Interpretation and review of laboratory results Abnormal [employer] Phone: Magnesium [Mass/Vol] 2.9 mg/dL High 1.6 - 2 .6 mg/dL [employer] Phone: No Panel InformationOrdered By: Grayson Hernandez on 05-10-2019 Interpretation and review of laboratory results Abnormal [employer] Phone: Patient Fasting?Ordered By: Grayson Hernandez on 05-10-2019 Patient Fasting? YES [employer] [facility] [employer] Phone: TSH without ReflexOrdered By : Grayson Hernandez on 05-10-2019 TSH Qn 1.55 m[IU]/L [employer] Phone: Vitamin D 25 HydroxyOrdered By: Anshul Irizarry on 05-10-2019 Vit D, 25-Hydroxy 31.5 ng/mL 30 - 100 ng/mL [employer] Phone: Comment on above: Reference Range: Vitamin D status Range Deficiency <20 ng/mL Mild Deficiency 20-30 ng/mL Sufficiency 30-100 ng/mL Toxicity >100 ng/mL XR CHEST STANDARD (2 VW)Orde red By: Grayson Hernandez on 05-10-2019 No acute cardiopulmonary abnormality. [employer] Phone: EXAM: XR CHEST (2 VW ) HISTORY: R01.1. COMPARISON: None. FINDINGS: Two views are submitted. The lungs and pleural spaces are clear. Pulmonary vascular markings are normal. The cardiomediastinal silhouette is within normal limits. No bony lesions are shown. [employer] Work Phone: [place], [employer] Incoming Radiant Results From [employer] - 05/10/2019 10:43 AM EST EXAM: XR CHEST (2 VW) HISTORY: R01.1. COMPARISON: None. FINDINGS: Two views are submitted. The lungs and pleural spaces are clear. Pulmonary vascular markings are normal. The cardiomediastinal silhouette is within normal limits. No bony lesions are shown. IMPRESSION: No acute cardiopulmonary abnormality. [employer] Work Phone: Vital Signs Date Time Vital Sign Value Performing Clinician Facility 08-20-2024 15:02-0400 Body height 158.8 cm Grayson Hernandez MD Work Phone: [facility] 08-20-2024 15:02-0400 Body mass index (BMI) [Ratio] 25.38 kg/m2 Grayson Hernandez MD Work Phone: [facility] 08-20-2024 15:02-0400 Body weight 63.96 kg Grayson Hernandez MD Work Phone: [facility] 08-20-2024 15:02-0400 Diastolic blood pressure 70 mm[Hg] Grayson Hernandez MD Work Phone: [facility] 08-20-2024 15:02-0400 Heart rate 71 /min Grayson Hernandez MD Work Phone: [facility] 08-20-2024 15:02-0400 SaO2% (BldA) [Mass fraction] 99 % Grayson Hernandez MD Work Phone: [facility] 08-20-2024 15:02-0400 Systolic blood pressure 112 mm[Hg] Grayson Hernandez MD Work Phone: [facility] 07-06-2024 12:29-0500 Diastolic blood pressure 62 mm[Hg] Dm Agarwal Jr, MD [facility] 07-06-2024 12:29-0500 Systolic blood pressure 92 mm[Hg] Dm Agarwal Jr, MD [facility] 04-30-2024 15:29-0500 Body height 158.8 cm Grayson Hernandez MD Work Phone: [facility] 04-30-2024 15:29-0500 Body mass index (BMI) [Ratio] 25.02 kg/m2 Grayson Hernandez MD Work Phone: [facility] 04-30-2024 15:29-0500 Body weight 63.05 kg Grayson Hernandez MD Work Phone: [facility] 03-08-2024 12:24-0400 Body height 157.48 cm Grayson Hernandez MD Work Phone: [facility] 03-08-2024 12:24-0400 Body mass index (BMI) [Ratio] 23.8 kg/m2 Grayson Hernandez MD Work Phone: [facility] 03-08-2024 12:24-0400 Body temperature 98 [degF] Grayson Hernandez MD Work Phone: [facility] 03-08-2024 12:24-0400 Body weight 59.13 kg Grayson Hernandez MD Work Phone: [facility] 03-08-2024 12:24-0400 Diastolic blood pressure 70 mm[Hg] Grayson Hernandez MD Work Phone: [facility] 03-08-2024 12:24-0400 Heart rate 56 /min Grayson Hernandez MD Work Phone: [facility] 03-08-2024 12:24-0400 Respiratory rate 6 /min Grayson Hernandez MD Work Phone: [facility] 03-08-2024 12:24-0400 SaO2% (BldA) [Mass fraction] 100 % Grayson Hernandez MD Work Phone: [facility] 03-08-2024 12:24-0400 Systolic blood pressure 145 mm[Hg] Grayson Hernandez MD Work Phone: [facility] 02-21-2024 15:40-0400 Body height 158.8 cm Grayson Hernandez MD Work Phone: [facility] 02-21-2024 15:40-0400 Body mass index (BMI) [Ratio] 25.02 kg/m2 Grayson Hernandez MD Work Phone: [facility] 02-21-2024 15:40-0400 Body weight 63.05 kg Grayson Hernandez MD Work Phone: [facility] 09-27-2023 11:40-0400 Diastolic blood pressure 70 mm[Hg] Anshul Irizarry MD Work Phone: [facility] [employer] [facility] 09-27-2023 11:40-0400 Heart rate 82 /min Anshul Irizarry MD Work Phone: [facility] [employer] [facility] [employer] 09-27-2023 11:40-0400 Systolic blood pressure 176 mm[Hg] Anshul Irizarry MD Work Phone: [facility] [employer] [facility] [employer] 09-01-2023 14:45-0400 Diastolic blood pressure 39 mm[Hg] Matty Martinez MD Work Phone: [facility] [employer] 09-01-2023 14:45-0400 Heart rate 57 /min Matty Martinez MD Work Phone: [facility]ITAL[facility] [employer] [facility] [employer] 09-01-2023 14:45-0400 Respiratory rate 16 /min Matty Martinez MD Work Phone: [facility] 09-01-2023 14:45-0400 SaO2% (BldA) [Mass fraction] 95 % Matty Martinez MD Work Phone: [facility] 09-01-2023 14:45-0400 Systolic blood pressure 127 mm[Hg] Matty Martinez MD Work Phone: [employer] [facility] [employer] 09-01-2023 14:10-0400 Body temperature 96.8 [degF] Matty Martinez MD Work Phone: [employer] 07-17-2022 10:10-0500 Body height 160.02 cm [place] Other [employer] Other 07-17-2022 10:10-0500 Body mass index (BMI) [Ratio] 29.05 kg/m2 [place] Other [employer] Other 07-17-2022 10:10-0500 Body temperature 98.2 [degF] [place] Other [employer] Other 07-17-2022 10:10-0500 Body weight 74.39 kg [place] Other [employer] Other 07-17-2022 10:10-0500 Respiratory rate 18 /min [place] Other [employer] Other 07-17-2022 10:10-0500 SaO2% (BldA) [Mass fraction] 92 % [place] Other [employer] Other 07-24-2019 11:11-0500 Body Temperature 98.1 [degF] [employer] [place], [place] 07-24-2019 11:11-0500 BP Diastolic 55 mm[Hg] [facility] [employer] [place] 07-24-2019 11:11-0500 BP Systolic 138 mm[Hg] [facility] [employer] [place] 07-24-2019 11:11-0500 Pulse (Heart Rate) 50 /min [employer] [place] 07-24-2019 11:11-0500 Respiratory Rate 20 /min [facility] [employer] [place] 07-24-2019 04:00-0500 Pulse Oximetry 98 % Caro e[employer]- [place], [place] 07-22-2019 06:00-0500 BMI (Body Mass Index) 32.14 kg/m2 [facility], [place] 07-22-2019 06:00-0500 Body weight 79.7 kg Caro Teresa [employer] 07-11-2019 07:45-0500 Height 157.5 cm Caro Teresa [employer] 06-25-2019 12:17-0500 Pulse Oximetry 98 % [facility] [employer] Phone: 06-25-2019 12:17-0500 Respiratory Rate 20 /min Stv[facility] 1 [employer] Phone: 06-25-2019 11:29-0500 BMI (Body Mass Index) 26.89 kg/m2 St[facility] 1 [employer] Phone: 06-25-2019 11:29-0500 Body Temperature 98.2 [degF] [facility] 1 [employer] Phone: 06-25-2019 11:29-0500 Body weight 66.68 kg Stvz 1 [employer] Phone: 06-25-2019 11:29-0500 BP Diastolic 74 mm[Hg] [facility] 1 [employer] Phone: 06-25-2019 11:29-0500 BP Systolic 161 mm[Hg] Stvz 1 [employer] Phone: 06-25-2019 11:29-0500 Height 157.5 cm Stvz 1 [employer] Phone: 06-25-2019 11:29-0500 Pulse (Heart Rate) 76 /min Stvz 1 [employer] Phone: 06-06-2019 15:03-0500 BP Diastolic 72 mm[Hg] Tasia Irizarry [facility] 06-06-2019 15:03-0500 BP Systolic 132 mm[Hg] Tasia Irizarry [facility] 06-06-2019 15:03-0500 Pulse (Heart Rate) 70 /min Tasia Irizarry [facility] 06-06-2019 15:03-0500 Pulse Oximetry 99 % Tasia Irizarry [facility] 06-06-2019 08:40-0500 BMI (Body Mass Index) 25.97 kg/m2 Tasia Irizarry [facility] 06-06-2019 08:40-0500 Body weight 64.41 kg Tasia Irizarry [facility] 06-06-2019 08:40-0500 Height 157.5 cm Tasia Irizarry [facility] 06-06-2019 08:05-0500 Body Temperature 98.6 [degF] Tasia Irizarry [facility] 06-06-2019 08:05-0500 Respiratory Rate 14 /min Tasia Irizarry [facility] Encounters Encounter Date Encounter Type Care Provider Facility Start: 08-20-2024 End: 08-20-2024 Office outpatient visit 25 minutes Grayson Hernandez MD Work Phone: [facility] Comment on above: Primary hypertension (CMS/HCC) (Primary Dx); Chronic diastolic congestive heart failure, NYHA class 1 (CMS/HCC); Mixed hyperlipidemia (CMS/HCC) ; Hypokalemia; Hypomagnesemia; Type 2 diabetes mellitus with stage 4 chronic kidney disease, without long-term current use of insulin (CMS/HCC); Type 2 diabetes mellitus with hyperglycemia, without long-term current use of insulin (CMS/HCC); Polypharmacy; Edema, unspecified type Start: 08-20-2024 End: 08-20-2024 ambulatory GRAYSON HERNANDEZ Not Available Start: 08-20-2024 End: 08-20-2024 Bamboo flowsheet Grayson Hernandez MD Work Phone: [facility] Start: 08-20-2024 End: 08-20-2024 Bamboo flowspatrice Hernandez MD Work Phone: [facility] Start: 07-30-2024 End: 07-30-2024 ambulatory GRAYSON HERNANDEZ Not Available Start: 07-30-2024 End: 07-30-2024 Bamboo flowsheet Grayson Hernandez MD Work Phone: [facility] Start: 07-30-2024 End: 07-30-2024 Bamboo flowsheet Grayson Hernandez MD Work Phone: [facility] Start: 07-06-2024 End: 07-06-2024 Office outpatient visit 15 minutes Dm Agarwal Jr Work Phone: [facility] Start: 07-06-2024 ambulatory Dm Agarwal Jr [facility] Start: 06-15-2024 End: 06-15-2024 Clinisync Result Encounter Grayson Hernandez MD Work Phone: [facility] External Department Unsolicited Start: 06-15-2024 End: 06-15-2024 Clinisync Result Encounter Grayson Hernandez MD Work Phone: [facility] Unsolicited Start: 06-14-2024 End: 06-14-2024 Refill Grayson Hernandez MD Work Phone: [facility] Comment on above: Diastolic congestive heart failure, NYHA class 1, unspecified congestive heart failure chronicity (CMS/HCC) Start: 06-04-2024 End: 06-04-2024 Telephone encounter Grayson Hernandez MD Work Phone: [facility] Start: 05-28-2024 End: 05-29-2024 Refill Shannen Velazquez RN Work Phone: [facility] Comment on above: Acquired hypothyroid ism (CMS/HCC); Benign essential hypertension (CMS/HCC) Start: 05-24-2024 End: 05-24-2024 Bamboo flowsheet Grayson Hernandez MD Work Phone: [facility] Start: 05-24-2024 End: 05-24-2024 Bamboo flowsheet Grayson Hernandez MD Work Phone: [facility] Start: 05-24-2024 End: 05-24-2024 ambulatory GRAYSON HERNANDEZ Not Available Start: 05-03-2024 End: 05-03-2024 Telephone encounter Grayson Hernandez MD Work Phone: [facility] Start: 05-02-2024 End: 05-02-2024 Clinisync Result Encounter Generic External Data Provider [facility] External [facility] Unsolicited Start: 05-02-2024 End: 05-02-2024 Clinisync Result Encounter Generic External Data Provider [facility] External [facility] Unsolicited Start: 04-30-2024 End: 04-30-2024 ambulatory GRAYSON HERNANDEZ Not Available Start: 04-30-2024 End: 04-30-2024 Office outpatient visit 15 minutes Grayson Hernandez MD Work Phone: [facility] Comment on above: Acute cystitis witho ut hematuria (Primary Dx); Multiple falls; Generalized weakness; Disorientation; Sequela, post-stroke; Overweight (BMI 25.0-29.9) Start: 04-10-2024 End: 04-10-2024 Patient encounter procedure Grayson Hernandez MD Work Phone: [facility] Ctr-Ultrasound Main [place] Work Phone: Start: 04-10-2024 End: 04-10-2024 ambulatory Grayson Hernandez MD Work Phone: [facility] Work Phone: Start: 04-10-2024 End: 04-11-2024 ambulatory Grayson Hernandez MD Work Phone: [facility] Ctr Work Phone: Start: 04-10-2024 End: 04-11-2024 Patient encounter procedure Grayson Hernandez MD Work Phone: [facility] Ctr-Lab Main [place] Work Phone: Start: 03-08-2024 End: 03-08-2024 Patient encounter procedure Grayson Hernandez MD Work Phone: [facility] [place] Work Phone: Start: 02-21-2024 End: 02-21-2024 ambulatory GRAYSON HERNANDEZ Not Available Start: 02-21-2024 End: 02-21-2024 Office outpatient visit 25 minutes Grayson Hernandez MD Work Phone: [facility] Comment on above: Chronic organic brai n syndrome; Anxiety associated with depression; Agitation Start: 02-21-2024 End: 02-21-2024 Bamboo flowsheet Grayson Hernandez MD Work Phone: [facility] Start: 02-21-2024 End: 02-21-2024 Bamboo flowsheet Grayson Hernandez MD Work Phone: [facility] Start: 02-15-2024 End: 02-20-2024 Refill Grayson Hernandez MD Work Phone: [facility] Comment on above: Anxiety associated w ith depression Start: 02-10-2024 End: 02-13-2024 ambulatory Shannen Velazquez RN Work Phone: [facility] Start: 02-09-2024 End: 02-09-2024 Refill Grayson Hernandez MD Work Phone: [facility] Comment on above: Mixed hyperlipidemia (CMS/HCC) Start: 01-03-2024 End: 01-24-2024 Telephone encounter Grayson Hernandez MD Work Phone: [facility] Start: 12-20-2023 End: 12-20-2023 ambulatory GRAYSON HERNANDEZ Not Available Start: 11-08-2023 End: 11-08-2023 ambulatory GRAYSON HERNANDEZ Not Available Start: 11-03-2023 End: 11-03-2023 ambulatory JORGE LUIS Daniele GASCA Not Available Start: 09-27-2023 End: 09-30-2023 ambulatory ANSHUL IRIZARRY [facility] Hospit al Start: 09-27-2023 End: 09-29-2023 Subsequent hospital visit by physician Anshul Irizarry MD Work Phone: [facility] Nuclear Medicine Comment on above: SOB (shortness of br eath) Arrived Start: 09-01-2023 End: 09-04-2023 ambulatory [facility] Start: 09-01-2023 End: 09-01-2023 Subsequent hospital visit by physician Matty Martinez MD Work Phone: [facility] Cardiac [facility]/IR Lab Comment on above: Chronic a-fib ([facility]) Start: 08-15-2023 End: 08-16-2023 ambulatory GRAYSON HERNANDEZ [facility] Start: 07-07-2023 End: 07-07-2023 May Chanell Bowen Work Phone: [facility] Start: 07-04-2023 Telephone encounter Portia Osorio [facility] Start: 07-01-2023 Refill Shannen Barrett on RN Work Phone: [facility] Comment on above: Diastolic congestive heart failure, NYHA class 1, unspecified congestive heart failure chronicity ([facility]/HCC) Start: 05-30-2023 Telephone encounter Alma Hankins RN [facility] Comment on above: follow up appointmen t Start: 07-25-2022 End: 07-25-2022 ambulatory MANISHA ARRIAGA Facility:[facility] Start: 07-17-2022 End: 07-17-2022 ambulatory [place] Other [employer] Other Start: 07-17-2022 Office outpatient vi sit 15 minutes Flores [place] [facility] Start: 06-23-2022 End: 06-23-2022 Connie Moctezuma Work Phone: [facility] Start: 03-16-[address] GRAYSON HERNANDEZ . Fac ility:[facility] Start: 12-30-2021 End: 12-31-[address] ABHI BECERRIL Facility:[facility] Start: 12-16-2021 End: 12-17-[address] GRAYSON HERNANDEZ . Facility:[facility] Start: 12-10-2021 End: 12-11-[address] GRAYSON HERNANDEZ . Facility:[facility] Start: 09-07-2021 End: 09-07-2021 Subsequent hospital visit by physician Dee Dee Ekg [facility] EKG Comment on above: Palpitations Start: 08-17-2021 End: 08-18-[address] GRAYSON HERNANDEZ . Facility:[facility] Start: 08-11-2021 End: 08-13-2021 ambulatory ALIYAH ROACH . Facility:[facility] Start: 06-22-2021 End: 06-22-2021 ambulatory Martha Rendon Other [employer] Other Start: 06-22-2021 Office outpatient vi sit 25 minutes Martha Rendon [facility] [place] Start: 05-12-2021 End: 05-12-2021 Naveen Decker Work Phone: [facility] Start: 06-28-2020 End: 06-28-2020 Orders Only Brynn Bermeo Work Phone: [facility] Start: 04-23-2020 End: 04-23-2020 Naveen Decekr Work Phone: [facility] Start: 02-25-2020 End: 02-25-2020 Subsequent hospital visit by physician Grayson BERRY EKG Comment on above: Kidney insufficiency ; Hypertension, unspecified type; Shortness of breath; Hyperlipidemia, unspecified hyperlipidemia type; Vitamin D deficiency disease; Other specified diabetes mellitus with other specified complication, unspecified whether halfway insulin use (HCC) Start: 10-05-2019 End: 10-05-2019 Subsequent hospital visit by physician Grayson B[facility]Y RESPIR[facility]ORY [facility]ER[facility]Y Comment on above: Aortic valve stenosi s, etiology of cardiac valve disease unspecified; Shortness of breath; Hypertension, unspecified type; Hyperlipidemia, unspecified hyperlipidemia type; Vitamin D deficiency disease Start: 08-02-2019 ambulatory [facility] Start: 07-03-2019 End: 07-24-2019 Evaluation and management of inpatient CARO TERESA [facility] Start: 07-03-2019 End: 07-24-2019 Evaluation and management of inpatient Caro Teresa Work Phone: [facility] Start: 06-29-2019 End: 07-01-2019 Subsequent hospital visit by physician Jennifer Pace [facility] CT Scan Comment on above: CAD, multiple vessel ; Pre-op testing CAD, multiple vessel ; Pre-op testing; Bilateral carotid bruits Start: 06-27-2019 End: 06-28-2019 Patient encounter procedure VASILIY GARCIA [facility] Start: 06-27-2019 End: 06-27-2019 Subsequent hospital visit by physician Asia PARKZ Echo Comment on above: Arrived Start: 06-25-2019 End: 06-29-2019 Patient encounter procedure CARO TERESA [facility] Start: 06-25-2019 End: 06-29-2019 Subsequent hospital visit by physician Asia 2 [facility] Radiology Comment on above: Arrived Start: 06-06-2019 End: 06-06-2019 Patient encounter procedure [facility] Start: 06-06-2019 End: 06-06-2019 Subsequent [facility] Work Phone: [facility] Procedural Care Unit Start: 05-29-2019 Patient encounter procedure [facility] Start: 05-25-2019 Patient encounter procedure [facility] Start: 05-10-2019 End: 05-12-2019 Subsequent hospital visit by physician Grayson Hernandez MD Other Phone: [facility] Comment on above: Hypertension, unspec ified type; Hyperlipidemia, unspecified hyperlipidemia type; Other specified diabetes mellitus with other specified complication, unspecified whether halfway insulin use (HCC); Vitamin D deficiency disease Systolic murmur; Moderate mitral regurgitation; Severe aortic stenosis Start: 04-18-2019 End: 04-18-2019 Naveen Decker Work Phone: [facility] Start: 04-19-2018 End: 04-19-2018 Naveen Decker Work Phone: [facility] Start: 01-19-2017 End: 01-19-2017 Naveen Decker Work Phone: [facility] Start: 11-03-2015 End: 11-03-2015 Naveen Decker Work Phone: [facility] Start: 11-04-2014 End: 11-04-2014 Mariela Romero Orgel Work Phone: [facility] Start: 10-29-2013 End: 10-29-2013 Mariela K Orgel Work Phone: [facility] Start: 10-20-2012 End: 10-20-2012 Mariela K Orgel Work Phone: [facility] Start: 08-16-2011 End: 08-16-2011 Mariela K Orgel Work Phone: [facility] Start: 04-26-2011 End: 04-26-2011 Mariela K Orgel Work Phone: [facility] Procedures Date Procedure Procedure Detail Performing Clinician Start: 07-06-2024 End: 07-06-2024 Computerized ophthalmic imaging retina Dm Agarwal Jr Start: 06-15-2024 ALL BASIC METABOLIC PANEL Grayson amos MD Work Phone: Start: 05-02-2024 ALL CBC WITH AUTO DIFF Generic External Data Provider Start: 04-10-2024 Ultrasonography of bilateral kidneys Grayson Hernandez MD Work Phone: Start: 09-27-2023 Myocardial spect multiple studies Anshul Irizarry MD Work Phone: Start: 07-07-2023 End: 07-07-2023 Computerized ophthalmic imaging retina Dm Aagrwal Jr, MD Start: 10-25-2022 History of coronary artery bypass grafting Hx of CABG Shannen Velazquez RN Work Phone: Start: 06-23-2022 End: 06-23-2022 Computerized ophthalmic imaging retina Dm Agarwal Jr, MD Start: 01-13-2022 Adult depression screening assessment Alma Hankins RN Start: 05-26-2021 Mammography Shannen Velazquez RN Work Phone: Start: 05-12-2021 End: 05-12-2021 Computerized ophthalmic imaging retina Dm Agarwal Jr, MD Start: 01-07-2021 Willis Velazquez RN Work Phone: Start: 04-23-2020 End: 04-23-2020 Computerized ophthalmic imaging retina Dm Agarwal Jr, MD Start: 07-24-2019 BIPAP CARO DIBARDINO Start: 07-24-2019 DIETARY NUTRITION SUPPLEMENTS CARO CORNELIA ARDINO Start: 07-24-2019 Glucose blood reagent strip CARO DIBAR PATRICIA Start: 07-24-2019 BIPAP CARO DIBARDINO Start: 07-24-2019 Glucose blood reagent strip Caro Dibar patricia Work Phone: Start: 07-24-2019 DISCHARGE PATIENT CARO DIBARDINO Start: 07-24-2019 BIPAP CARO DIBARDINO Start: 07-24-2019 INITIATE OXYGEN THERAPY PROTOCOL CARO DIBARDINO Start: 07-24-2019 Glucose blood reagent strip CARO DIBAR PATRICIA Start: 07-24-2019 Assay of magnesium CARO DIBARDINO Start: 07-24-2019 Basic metabolic panel calcium total CARO DIBARDINO Start: 07-24-2019 Blood count complete automated CARO DI BARDINO Start: 07-24-2019 Prothrombin time CARO DIBARDINO Start: 07-24-2019 Thromboplastin time partial plasma/whole blood CARO DIBARDINO Start: 07-24-2019 Glucose blood reagent strip Caro Dibar patricia Work Phone: Start: 07-24-2019 Assay of magnesium Caro Dibardino Work Phone: Start: 07-24-2019 Basic metabolic panel calcium total Caro Dibardino Work Phone: Start: 07-24-2019 Blood count complete automated Caro Di bardino Work Phone: Start: 07-24-2019 Prothrombin time Caro Dibardino Work Phone: Start: 07-24-2019 Thromboplastin time partial plasma/whole blood Caro Dibardino Work Phone: Start: 07-24-2019 BIPAP CARO DIBARDINO Start: 07-24-2019 STRICT INTAKE AND OUTPUT CARO DIBARDIN O Start: 07-24-2019 INTAKE AND OUTPUT CARO DIBARDINO Start: 07-24-2019 BIPAP CARO DIBARDINO Start: 07-23-2019 Glucose blood reagent strip CARO DIBAR PATRICIA Start: 07-23-2019 BIPAP CARO DIBARDINO Start: 07-23-2019 Glucose blood reagent strip Caro Dibar patricia Work Phone: Start: 07-23-2019 Glucose blood reagent strip CARO DIBAR PATRICIA Start: 07-23-2019 BIPAP CARO DIBARDINO Start: 07-23-2019 Glucose blood reagent strip Caro Dibar patricia Work Phone: Start: 07-23-2019 BIPAP CARO DIBARDINO Start: 07-23-2019 Glucose blood reagent strip CARO DIBAR PATRICIA Start: 07-23-2019 DIET CARB CONTROL CARO LOCKEARDINO Start: 07-23-2019 Glucose blood reagent strip Caro Dibar patricia Work Phone: Start: 07-23-2019 BIPAP CARO LOCKEARDINO Start: 07-23-2019 INITIATE OXYGEN THERAPY PROTOCOL CARO WRAYNO Start: 07-23-2019 Comprehensive metabolic panel CARO FARNSWORTHDINO Start: 07-23-2019 Glucose blood reagent strip CARO LOCKEAR PATRICIA Start: 07-23-2019 Assay of magnesium CARO LOCKEARDINO Start: 07-23-2019 Assay of phosphorus inorganic CARO CORNELIA ARDINO Start: 07-23-2019 Basic metabolic panel calcium total CRAO LOCKEARDINO Start: 07-23-2019 Blood count complete automated CARO ZHONG INO Start: 07-23-2019 Prothrombin time CARO LOCKEARDINO Start: 07-23-2019 Thromboplastin time partial plasma/whole blood CARO LOCKEARDINO Start: 07-23-2019 BASIC METABOLIC PANEL W/ REFLEX TO MG FOR LOW K Kanwal Avula Work Phone: Start: 07-23-2019 Glucose blood reagent strip Caro Corneliaar patricia Work Phone: Start: 07-23-2019 Assay of magnesium Caro Lockeardino Work Phone: Start: 07-23-2019 Assay of phosphorus inorganic Caro Cornelia ardino Work Phone: Start: 07-23-2019 Basic metabolic panel calcium total Caro Locketdno Work Phone: Start: 07-23-2019 Blood count complete automated Caro Zhong vitor Work Phone: Start: 07-23-2019 Prothrombin time Caro Locketdno Work Phone: Start: 07-23-2019 Thromboplastin time partial plasma/whole blood Caro Corneliatdno Work Phone: Start: 07-23-2019 BIPAP CARO DIBARDINO Start: 07-23-2019 STRICT INTAKE AND OUTPUT CARO DIBARDIN O Start: 07-23-2019 INTAKE AND OUTPUT CARO DIBARDINO Start: 07-23-2019 BIPAP CARO DIBARDINO Start: 07-22-2019 Potassium serum plasma/whole blood CARO LOCKEARDINO Start: 07-22-2019 Glucose blood reagent strip CARO DIBAR PATRICIA Start: 07-22-2019 BIPAP CARO DIBARDINO Start: 07-22-2019 Potassium serum plasma/whole blood Caro Wrayno Work Phone: Start: 07-22-2019 Glucose blood reagent strip Caro Dibar patricia Work Phone: Start: 07-22-2019 BIPAP CARO DIBARDINO Start: 07-22-2019 BIPAP CARO DIBARDINO Start: 07-22-2019 Glucose blood reagent strip CARO DIBAR PATRICIA Start: 07-22-2019 DIE REPAIRER STAMPING CLINICAL BEDSIDE SWALLOW EVALUATION AND TREATMENT CARO TERESA Start: 07-22-2019 DIE REPAIRER STAMPING EVAL AND TREAT CARO TERESA Start: 07-22-2019 Glucose blood reagent strip Caro Dibar patricia Work Phone: Start: 07-22-2019 Speech and language therapy regime Kanwal Avula Work Phone: Start: 07-22-2019 BIPAP CARO LOCKEARDINO Start: 07-22-2019 INITIATE OXYGEN THERAPY PROTOCOL CARO TERESA Start: 07-22-2019 Glucose blood reagent strip CARO DIBAR PATRICIA Start: 07-22-2019 Ecg routine ecg w/least 12 lds w/i&r CARO TERESA Start: 07-22-2019 EKG REPORT CARO TERESA Start: 07-22-2019 End: 07-22-2019 Glucose blood reagent strip Caro farleyo Work Phone: Start: 07-22-2019 Ecg routine ecg w/least 12 lds w/i&r Nuha Coronel Work Phone: Start: 07-22-2019 EKG REPORT Hpf Scanning Start: 07-22-2019 Assay of magnesium CARO DIBARDINO Start: 07-22-2019 Basic metabolic panel calcium total CARO DIBARDINO Start: 07-22-2019 Blood count complete automated CARO ESTEVEZINO Start: 07-22-2019 Prothrombin time CARO DIBARDINO Start: 07-22-2019 Thromboplastin time partial plasma/whole blood CARO DIBARDINO Start: 07-22-2019 BIPAP CARO DIBARDINO Start: 07-22-2019 Assay of magnesium Caro Lockeardino Work Phone: Start: 07-22-2019 Basic metabolic panel calcium total Caro Dibardino Work Phone: Start: 07-22-2019 Blood count complete automated Caro Estevezino Work Phone: Start: 07-22-2019 Prothrombin time Caro Lockeardino Work Phone: Start: 07-22-2019 Thromboplastin time partial plasma/whole blood Caro Dibardino Work Phone: Start: 07-22-2019 STRICT INTAKE AND OUTPUT CARO DIBARDIN O Start: 07-22-2019 INTAKE AND OUTPUT CARO DIBARDINO Start: 07-22-2019 BIPAP CARO DIBARDINO Start: 07-21-2019 Radiologic exam chest single view CARO DIBARDINO Start: 07-21-2019 BIPAP CARO DIBARDINO Start: 07-21-2019 ANION GAP (CALC) POC CARO DIBARDINO Start: 07-21-2019 ARTERIAL BLOOD GAS, POC CARO DIBARDINO Start: 07-21-2019 Blood count hemoglobin CARO DIBARDINO Start: 07-21-2019 Calcium ionized CRAO DIBARDINO Start: 07-21-2019 Chloride other source CARO DIBARDINO Start: 07-21-2019 CREATININE W/GFR POINT OF CARE CARO FARHEEN INO Start: 07-21-2019 Gluc bld gluc mntr dev cleared fda spec home use CARO DIBMANUEL Start: 07-21-2019 LACTIC ACID,POINT OF CARE CARO LOCKETD NO Start: 07-21-2019 Potassium serum plasma/whole blood CARO LOCKEARDINO Start: 07-21-2019 Sodium serum plasma or whole blood CARO LOCKEARDINO Start: 07-21-2019 ABG DRAW CARO WRAYNO Start: 07-21-2019 Thromboplastin time partial plasma/whole blood CARO WRAYNO Start: 07-21-2019 Radiologic exam chest single view Jaimee Arellano Work Phone: Start: 07-21-2019 ANION GAP (CALC) POC Caro Corneliatdno Work Phone: Start: 07-21-2019 ARTERIAL BLOOD GAS, POC Caor Wrayno Work Phone: Start: 07-21-2019 Blood count hemoglobin Caro Teresa Work Phone: Start: 07-21-2019 CALCIUM, IONIC (POC) Caro Wrayno Work Phone: Start: 07-21-2019 Chloride [Moles/Vol] Caro Wrayno Work Phone: Start: 07-21-2019 CREATININE W/GFR POINT OF CARE Caro Storey Work Phone: Start: 07-21-2019 Gluc bld gluc mntr dev cleared fda spec home use Caro Lockemanuel Work Phone: Start: 07-21-2019 LACTIC ACID,POINT OF CARE Caro Dibtd no Work Phone: Start: 07-21-2019 Potassium [Moles/Vol] Caro Wrayno Work Phone: Start: 07-21-2019 Sodium [Moles/Vol] Caro Wrayno Work Phone: Start: 07-21-2019 ABG DRAW Caro Teresa Work Phone: Start: 07-21-2019 Thromboplastin time partial plasma/whole blood Caro Teresa Work Phone: Start: 07-21-2019 Glucose blood reagent strip CARO DIBAR PATRICIA Start: 07-21-2019 Glucose blood reagent strip Caro Dibar patricia Work Phone: Start: 07-21-2019 Glucose blood reagent strip CARO DIBAR PATRICIA Start: 07-21-2019 Thromboplastin time partial plasma/whole blood CARO DIBARDINO Start: 07-21-2019 Glucose blood reagent strip Caro Dibar patricia Work Phone: Start: 07-21-2019 INITIATE OXYGEN THERAPY PROTOCOL CARO DIBARDINO Start: 07-21-2019 Glucose blood reagent strip CARO DIBAR PATRICIA Start: 07-21-2019 Thromboplastin time partial plasma/whole blood Caro Dibardino Work Phone: Start: 07-21-2019 Glucose blood reagent strip Caro Dibar patricia Work Phone: Start: 07-21-2019 Assay of magnesium CARO DIBARDINO Start: 07-21-2019 Basic metabolic panel calcium total CARO DIBARDINO Start: 07-21-2019 Blood count complete automated CARO DI BARDINO Start: 07-21-2019 Prothrombin time CARO DIBARDINO Start: 07-21-2019 Thromboplastin time partial plasma/whole blood CARO DIBARDINO Start: 07-21-2019 Assay of magnesium Caro Dibardino Work Phone: Start: 07-21-2019 Basic metabolic panel calcium total Caro Dibardino Work Phone: Start: 07-21-2019 Blood count complete automated Caro Di bardino Work Phone: Start: 07-21-2019 Prothrombin time Caro Dibardino Work Phone: Start: 07-21-2019 Thromboplastin time partial plasma/whole blood Caro Dibardino Work Phone: Start: 07-21-2019 Ecg routine ecg w/least 12 lds w/i&r CARO DIBARDINO Start: 07-21-2019 STRICT INTAKE AND OUTPUT CARO DIBARDIN O Start: 07-21-2019 INTAKE AND OUTPUT CARO DIBARDINO Start: 07-21-2019 Glucose blood reagent strip CARO DIBAR PATRICIA Start: 07-20-2019 Glucose blood reagent strip Caro Dibar patricia Work Phone: Start: 07-20-2019 Glucose blood reagent strip Caro Smallwood patricia Work Phone: Start: 07-20-2019 Glucose blood reagent strip CARO SMALLWOOD PATRICIA Start: 07-20-2019 Radiologic exam abdomen 1 view CARO STOREY Start: 07-20-2019 Glucose blood reagent strip Caro Smallwood patricia Work Phone: Start: 07-20-2019 Radiologic exam abdomen 1 view Rodrigo Giana sthi Work Phone: Start: 07-20-2019 Glucose blood reagent strip CARO SMALLWOOD PATRICIA Start: 07-20-2019 TRANSFER PATIENT CARO TERESA Start: 07-20-2019 IP CONSULT TO INTERNAL MEDICINE CARO GILL Start: 07-20-2019 NASOGASTRIC TUBE INSERTION CARO MOTA MADI Start: 07-20-2019 Glucose blood reagent strip Caro Smallwood patricia Work Phone: Start: 07-20-2019 INITIATE OXYGEN THERAPY PROTOCOL CARO TERESA Start: 07-20-2019 DIE REPAIRER STAMPING CLINICAL BEDSIDE SWALLOW EVALUATION AND TREATMENT CARO TERESA Start: 07-20-2019 PT EVAL AND TREAT CARO TERESA Start: 07-20-2019 Assay of magnesium CARO TERESA Start: 07-20-2019 Assay of phosphorus inorganic CARO FARNSWORTHDINO Start: 07-20-2019 Basic metabolic panel calcium total CARO LOCKEARDINO Start: 07-20-2019 Blood count complete automated CARO STOREY Start: 07-20-2019 Prothrombin time CARO TERESA Start: 07-20-2019 Thromboplastin time partial plasma/whole blood CARO WRAYNO Start: 07-20-2019 Ecg routine ecg w/least 12 lds w/i&r CARO WRAYNO Start: 07-20-2019 EKG REPORT CARO LOCKETDMOLLY Start: 07-20-2019 Glucose blood reagent strip CARO SMALLWOOD PATRICIA Start: 07-20-2019 Assay of magnesium Caro Wrayno Work Phone: Start: 07-20-2019 Assay of phosphorus inorganic Caro Cornelia ardino Work Phone: Start: 07-20-2019 Basic metabolic panel calcium total Caro Lockeardino Work Phone: Start: 07-20-2019 Blood count complete automated Caro Storey Work Phone: Start: 07-20-2019 Prothrombin time Caro Lockeardino Work Phone: Start: 07-20-2019 Thromboplastin time partial plasma/whole blood Caro Dibardino Work Phone: Start: 07-20-2019 Ecg routine ecg w/least 12 lds i&r only Carlylenelson Uriosteguimood Work Phone: Start: 07-20-2019 EKG REPORT Hpf Scanning Start: 07-20-2019 Glucose blood reagent strip Caro Dibar patricia Work Phone: Start: 07-20-2019 Thromboplastin time partial plasma/whole blood CARO DIBARDINO Start: 07-20-2019 STRICT INTAKE AND OUTPUT CARO DIBARDIN O Start: 07-20-2019 INTAKE AND OUTPUT CARO DIBARDINO Start: 07-20-2019 Thromboplastin time partial plasma/whole blood Caro Corneliaardino Work Phone: Start: 07-19-2019 Glucose blood reagent strip CARO DIBAR PATRICIA Start: 07-19-2019 Thromboplastin time partial plasma/whole blood CARO DIBARDINO Start: 07-19-2019 Antibody screen Caro Dibardino Start: 07-19-2019 Glucose blood reagent strip Caro Dibar patricia Work Phone: Start: 07-19-2019 Thromboplastin time partial plasma/whole blood Caro Dibardino Work Phone: Start: 07-19-2019 Glucose blood reagent strip CARO DIBAR PATRICIA Start: 07-19-2019 AMB EXTERNAL REFERRAL TO CARDIAC REHAB CARO DIBARDINO Start: 07-19-2019 Radiologic exam chest single view CARO DIBARDINO Start: 07-19-2019 Glucose blood reagent strip Caro Dibar patricia Work Phone: Start: 07-19-2019 EXTUBATION CARO DIBARDINO Start: 07-19-2019 Radiologic exam chest single view Vasiliy Garcia Work Phone: Start: 07-19-2019 EXTUBATION Donovan Mena Work Phone: Start: 07-19-2019 Thromboplastin time partial plasma/whole blood CARO DIBARDINO Start: 07-19-2019 Glucose blood reagent strip CARO DIBAR PATRICIA Start: 07-19-2019 Thromboplastin time partial plasma/whole blood Vasiliyedwin Garcia Work Phone: Start: 07-19-2019 Glucose blood reagent strip Caro Dibar patricia Work Phone: Start: 07-19-2019 Radiologic exam abdomen 1 view CARO ESTEVEZINO Start: 07-19-2019 INITIATE OXYGEN THERAPY PROTOCOL CARO LOCKEARDINO Start: 07-19-2019 Radiologic exam abdomen 1 view Caro Zhong ino Work Phone: Start: 07-19-2019 Glucose blood reagent strip CARO DIBAR PATRICIA Start: 07-19-2019 Ecg routine ecg w/least 12 lds w/i&r CARO DIBARDINO Start: 07-19-2019 EKG REPORT CARO LOCKEARDINO Start: 07-19-2019 Glucose blood reagent strip Caro Dibar patricia Work Phone: Start: 07-19-2019 Ecg routine ecg w/least 12 lds i&r only Jenniferbette Homre Work Phone: Start: 07-19-2019 EKG REPORT Hpf Scanning Start: 07-19-2019 Assay of magnesium CARO DIBARDINO Start: 07-19-2019 Basic metabolic panel calcium total CARO DIBARDINO Start: 07-19-2019 Blood count complete automated CARO DI BARDINO Start: 07-19-2019 Prothrombin time CARO DIBARDINO Start: 07-19-2019 Thromboplastin time partial plasma/whole blood CARO DIBARDINO Start: 07-19-2019 ARTERIAL BLOOD GAS, POC CARO DIBARDINO Start: 07-19-2019 Gluc bld gluc mntr dev cleared fda spec home use CARO DIBARDINO Start: 07-19-2019 Assay of magnesium Caro Dibardino Work Phone: Start: 07-19-2019 Basic metabolic panel calcium total Caro Dibardino Work Phone: Start: 07-19-2019 Blood count complete automated Caro Di bardino Work Phone: Start: 07-19-2019 Prothrombin time Caro Teresa Work Phone: Start: 07-19-2019 Thromboplastin time partial plasma/whole blood Caro Teresa Work Phone: Start: 07-19-2019 ARTERIAL BLOOD GAS, POC Caro Teresa Work Phone: Start: 07-19-2019 Gluc bld gluc mntr dev cleared fda spec home use Caro Wrayno Work Phone: Start: 07-19-2019 STRICT INTAKE AND OUTPUT CARO LOCKETDN O Start: 07-19-2019 INTAKE AND OUTPUT CARO LOCKEARDINO Start: 07-19-2019 Glucose blood reagent strip CARO DIBAR PATRICIA Start: 07-18-2019 Glucose blood reagent strip Caro Dibar patricia Work Phone: Start: 07-18-2019 Glucose blood reagent strip Caro Dibar patricia Work Phone: Start: 07-18-2019 Glucose blood reagent strip CARO DIBAR PATRICIA Start: 07-18-2019 Glucose blood reagent strip Caro Dibar patricia Work Phone: Start: 07-18-2019 RESTRAINTS NON-VIOLENT OR [id number] CARO CORNELIATDNO Start: 07-18-2019 Glucose blood reagent strip CARO DIBAR PATRICIA Start: 07-18-2019 Glucose blood reagent strip Caro Dibar patricia Work Phone: Start: 07-18-2019 Glucose blood reagent strip CARO DIBAR PATRICIA Start: 07-18-2019 INITIATE OXYGEN THERAPY PROTOCOL CARO DIBTDNO Start: 07-18-2019 Radiologic exam chest single view CARO WRAYNO Start: 07-18-2019 Ecg routine ecg w/least 12 lds w/i&r CARO TERESA Start: 07-18-2019 EKG REPORT CARO TERESA Start: 07-18-2019 Glucose blood reagent strip Caro Dibar patricia Work Phone: Start: 07-18-2019 Radiologic exam chest single view Vasiliy Garcia Work Phone: Start: 07-18-2019 Glucose blood reagent strip Caro Dibar patricia Work Phone: Start: 07-18-2019 Ecg routine ecg w/least 12 lds i&r only Nuha Coronel Work Phone: Start: 07-18-2019 EKG REPORT Hpf Scanning Start: 07-18-2019 Assay of magnesium CARO DIBARDINO Start: 07-18-2019 Assay of phosphorus inorganic CARO CORNELIA ARDINO Start: 07-18-2019 Basic metabolic panel calcium total CARO DIBARDINO Start: 07-18-2019 Blood count complete automated CARO DI BARDINO Start: 07-18-2019 Prothrombin time CARO DIBARDINO Start: 07-18-2019 Thromboplastin time partial plasma/whole blood CARO DIBARDINO Start: 07-18-2019 ARTERIAL BLOOD GAS, POC CARO DIBARDINO Start: 07-18-2019 Assay of magnesium Caro Dibardino Work Phone: Start: 07-18-2019 Assay of phosphorus inorganic Caro Cornelia ardino Work Phone: Start: 07-18-2019 Basic metabolic panel calcium total Caro Dibardino Work Phone: Start: 07-18-2019 Blood count complete automated Caro Zhong bardino Work Phone: Start: 07-18-2019 Prothrombin time Caro Dibardino Work Phone: Start: 07-18-2019 Thromboplastin time partial plasma/whole blood Cole Marc Work Phone: Start: 07-18-2019 ARTERIAL BLOOD GAS, POC Caro Dibardino Work Phone: Start: 07-18-2019 INTAKE AND OUTPUT CARO DIBARDINO Start: 07-18-2019 STRICT INTAKE AND OUTPUT CARO DIBARDIN O Start: 07-17-2019 Glucose blood reagent strip CARO DIBAR PATRICIA Start: 07-17-2019 Glucose blood reagent strip Caro Dibar patricia Work Phone: Start: 07-17-2019 RESTRAINTS NON-VIOLENT OR [id number] CARO DIBARDINO Start: 07-17-2019 IP CONSULT TO NEUROSURGERY CARO BARRAZA Start: 07-17-2019 Glucose blood reagent strip CARO SMALLWOOD PATRICIA Start: 07-17-2019 Glucose blood reagent strip Caro Smallwood patricia Work Phone: Start: 07-17-2019 Transfusion blood/blood components CARO LOCKEARDINO Start: 07-17-2019 Glucose blood reagent strip CARO SMALLWOOD PATRICIA Start: 07-17-2019 Transfusion blood/blood components Hpf Scanning Start: 07-17-2019 Glucose blood reagent strip Caro Lockear patricia Work Phone: Start: 07-17-2019 INITIATE OXYGEN THERAPY PROTOCOL CARO TERESA Start: 07-17-2019 Ecg routine ecg w/least 12 lds w/i&r CARO WRAYNO Start: 07-17-2019 EKG REPORT CARO TERESA Start: 07-17-2019 Glucose blood reagent strip CARO SMALLWOOD PATRICIA Start: 07-17-2019 Radiologic exam chest single view CARO LOCKETDNO Start: 07-17-2019 Assay of magnesium CARO LOCKEARDINO Start: 07-17-2019 Basic metabolic panel calcium total CARO LOCKEARDINO Start: 07-17-2019 Blood count complete automated CARO STOREY Start: 07-17-2019 Prothrombin time CARO WRAYNO Start: 07-17-2019 Thromboplastin time partial plasma/whole blood CARO WRAYNO Start: 07-17-2019 ARTERIAL BLOOD GAS, POC CARO WRAYNO Start: 07-17-2019 Gluc bld gluc mntr dev cleared fda spec home use CARO LOCKEARDINO Start: 07-17-2019 Ecg routine ecg w/least 12 lds i&r only Nuha Coronel Work Phone: Start: 07-17-2019 EKG REPORT Hpf Scanning Start: 07-17-2019 Glucose blood reagent strip Caro Smallwood patricia Work Phone: Start: 07-17-2019 Radiologic exam chest single view Vasiliy Garcia Work Phone: Start: 07-17-2019 Assay of magnesium Caro Lockeardino Work Phone: Start: 07-17-2019 Basic metabolic panel calcium total Caro Lockeardino Work Phone: Start: 07-17-2019 Blood count complete automated Caro Zhong vitor Work Phone: Start: 07-17-2019 Prothrombin time Caro Locketdno Work Phone: Start: 07-17-2019 Thromboplastin time partial plasma/whole blood Cole Arteaga Work Phone: Start: 07-17-2019 ARTERIAL BLOOD GAS, POC Caro Locketdno Work Phone: Start: 07-17-2019 Gluc bld gluc mntr dev cleared fda spec home use Caro Locketdno Work Phone: Start: 07-17-2019 STRICT INTAKE AND OUTPUT CARO LOCKEARDIN O Start: 07-17-2019 INTAKE AND OUTPUT CARO LOCKEARDINO Start: 07-17-2019 TRANSFUSE RED BLOOD CELLS CARO LOCKEARDI NO Start: 07-16-2019 TRANSFUSE RED BLOOD CELLS Nuha Ivey od Work Phone: Start: 07-16-2019 Glucose blood reagent strip CARO DIBAR PATRICIA Start: 07-16-2019 Thromboplastin time partial plasma/whole blood CARO CORNELIAARDINO Start: 07-16-2019 Glucose blood reagent strip Caro Dibar patricia Work Phone: Start: 07-16-2019 Mri brain brain stem w/o w/contrast material CARO DIBARDINO Start: 07-16-2019 Mri spinal canal cervical w/o contrast matrl CARO DIBARDINO Start: 07-16-2019 Thromboplastin time partial plasma/whole blood Janusz Stein Work Phone: Start: 07-16-2019 Glucose blood reagent strip CARO DIBAR PATRICIA Start: 07-16-2019 Mri brain brain stem w/o w/contrast material Omar Quinnoes Work Phone: Start: 07-16-2019 Mri spinal canal cervical w/o contrast matrl Omar Quinones Work Phone: Start: 07-16-2019 RESTRAINTS NON-VIOLENT OR [id number] CARO DIBARDINO Start: 07-16-2019 Glucose blood reagent strip Caro Dibar patricia Work Phone: Start: 07-16-2019 Autol bld/component collj storage predeposited CARO LOCKEMANUEL Start: 07-16-2019 Thromboplastin time partial plasma/whole blood CARO CORNELIAMANUEL Start: 07-16-2019 TYPE AND SCREEN CARO CORNELIAMANUEL Start: 07-16-2019 Glucose blood reagent strip CARO SMALLWOOD PATRICIA Start: 07-16-2019 Ecg routine ecg w/least 12 lds w/i&r CARO TERESA Start: 07-16-2019 BLOOD BANK SPECIMEN Caro Teresa Work Phone: Start: 07-16-2019 Blood typing serologic abo Janusz Stein Work Phone: Start: 07-16-2019 Thromboplastin time partial plasma/whole blood Cole Arteaga Work Phone: Start: 07-16-2019 PREPARE RBC (CROSSMATCH) CARO Parker Start: 07-16-2019 TRANSFUSION REACTION MANAGEMENT CARO GILL Start: 07-16-2019 VERIFY INFORMED CONSENT CARO TERESA Start: 07-16-2019 Glucose blood reagent strip Caro Smallwood patricia Work Phone: Start: 07-16-2019 INITIATE OXYGEN THERAPY PROTOCOL CARO TERESA Start: 07-16-2019 Glucose blood reagent strip CARO DIBJAVAD GOMEZ Start: 07-16-2019 Radiologic exam chest single view CARO TERESA Start: 07-16-2019 ARTERIAL BLOOD GAS, POC CARO TERESA Start: 07-16-2019 Gluc bld gluc mntr dev cleared fda spec home use CARO CORNELIAMANUEL Start: 07-16-2019 Assay of magnesium ACRO TERESA Start: 07-16-2019 Assay of phosphorus inorganic CARO JACKSON Start: 07-16-2019 Basic metabolic panel calcium total CARO TERESA Start: 07-16-2019 Blood count complete automated CARO STOREY Start: 07-16-2019 Prothrombin time CARO TERESA Start: 07-16-2019 Thromboplastin time partial plasma/whole blood CARO TERESA Start: 07-16-2019 Glucose blood reagent strip Caro Corneliajavad gomez Work Phone: Start: 07-16-2019 Radiologic exam chest single view Vasiliy Garcia Work Phone: Start: 07-16-2019 ARTERIAL BLOOD GAS, POC Caro Dibardino Work Phone: Start: 07-16-2019 Gluc bld gluc mntr dev cleared fda spec home use Caro Lockeardino Work Phone: Start: 07-16-2019 Assay of magnesium Caro Dibardino Work Phone: Start: 07-16-2019 Assay of phosphorus inorganic Caro Locke ardino Work Phone: Start: 07-16-2019 Basic metabolic panel calcium total Caro Dibardino Work Phone: Start: 07-16-2019 Blood count complete automated Caro Di bardino Work Phone: Start: 07-16-2019 Prothrombin time Caro Lockeardino Work Phone: Start: 07-16-2019 Thromboplastin time partial plasma/whole blood Caro Lockeardino Work Phone: Start: 07-16-2019 INTAKE AND OUTPUT CARO DIBARDINO Start: 07-16-2019 STRICT INTAKE AND OUTPUT CARO DIBARDIN O Start: 07-15-2019 Glucose blood reagent strip CARO DIBAR PATRICIA Start: 07-15-2019 Thromboplastin time partial plasma/whole blood CARO DIBARDINO Start: 07-15-2019 Glucose blood reagent strip Caro Dibar patricia Work Phone: Start: 07-15-2019 Insertion of rectal tube CARO DIBARDIN O Start: 07-15-2019 Thromboplastin time partial plasma/whole blood Caro Dibardino Work Phone: Start: 07-15-2019 Basic metabolic panel calcium total CARO DIBARDINO Start: 07-15-2019 Blood count complete automated CARO DI BARDINO Start: 07-15-2019 Glucose blood reagent strip CARO DIBAR PATRICIA Start: 07-15-2019 Basic metabolic panel calcium total Caro Dibardino Work Phone: Start: 07-15-2019 Blood count complete automated Caro Di bardino Work Phone: Start: 07-15-2019 Thromboplastin time partial plasma/whole blood Caro Lockeardino Work Phone: Start: 07-15-2019 Glucose blood reagent strip Caro Dibar patricia Work Phone: Start: 07-15-2019 Assay of ammonia CARO CORNELIATDNO Start: 07-15-2019 CULTURE, BLOOD 1 CARO DIBTDNO Start: 07-15-2019 Assay of ammonia Omar Quinones Work Phone: Start: 07-15-2019 End: 07-15-2019 CULTURE, BLOOD 1 Rodrigo Avasthi Work Phone: Start: 07-15-2019 Virus centrifuge enhncd id imfluor stain ea CARO DIBARDINO Start: 07-15-2019 INFECTIOUS DISEASE INTERVENTION CARO GILL Start: 07-15-2019 Glucose blood reagent strip CARO DIBAR PATRICIA Start: 07-15-2019 RESTRAINTS NON-VIOLENT OR [id number] CARO CORNELIAARDINO Start: 07-15-2019 Virus centrifuge enhncd id imfluor stain ea Rodrigo Huberasthi Work Phone: Start: 07-15-2019 INFECTIOUS DISEASE INTERVENTION LauriZbigniew danielle Work Phone: Start: 07-15-2019 Glucose blood reagent strip Caro Dibar patricia Work Phone: Start: 07-15-2019 INITIATE OXYGEN THERAPY PROTOCOL CARO DIBARDINO Start: 07-15-2019 Glucose blood reagent strip CARO DIBAR PATRICIA Start: 07-15-2019 Radiologic exam chest single view CARO TERESA Start: 07-15-2019 ARTERIAL BLOOD GAS, POC CARO WRAYNO Start: 07-15-2019 Assay of free thyroxine CARO LOCKEARDINO Start: 07-15-2019 Assay of magnesium CARO DIBARDINO Start: 07-15-2019 Assay of thyroid stimulating hormone tsh CARO LOCKEARDINO Start: 07-15-2019 Assay of triiodothyronine t3 free CARO DIBARDINO Start: 07-15-2019 Basic metabolic panel calcium total CARO DIBARDINO Start: 07-15-2019 Blood count complete automated CARO STOREY Start: 07-15-2019 Cortisol total CARO LOCKEARDINO Start: 07-15-2019 Prothrombin time CARO DIBARDINO Start: 07-15-2019 Thromboplastin time partial plasma/whole blood CARO DIBARDINO Start: 07-15-2019 Glucose blood reagent strip Caro Dibar patricia Work Phone: Start: 07-15-2019 Radiologic exam chest single view Vasiliy Garcia Work Phone: Start: 07-15-2019 ARTERIAL BLOOD GAS, POC Caro Dibardino Work Phone: Start: 07-15-2019 Assay of free thyroxine Omar Quinones Work Phone: Start: 07-15-2019 Assay of magnesium Caro Teresa Work Phone: Start: 07-15-2019 Assay of thyroid stimulating hormone tsh Omar Quinones Work Phone: Start: 07-15-2019 Assay of triiodothyronine t3 free Omar Quinones Work Phone: Start: 07-15-2019 Basic metabolic panel calcium total Caro Corneliaardino Work Phone: Start: 07-15-2019 Blood count complete automated Caro Farheen adler Work Phone: Start: 07-15-2019 Cortisol total Omar Quinones Work Phone: Start: 07-15-2019 Prothrombin time Caro Dibardino Work Phone: Start: 07-15-2019 Thromboplastin time partial plasma/whole blood Caro Dibardino Work Phone: Start: 07-15-2019 STRICT INTAKE AND OUTPUT CARO DIBARDIN O Start: 07-15-2019 INTAKE AND OUTPUT CARO DIBARDINO Start: 07-14-2019 Glucose blood reagent strip CARO DIBAR PATRICIA Start: 07-14-2019 Glucose blood reagent strip Caro Dibar patricia Work Phone: Start: 07-14-2019 Glucose blood reagent strip CARO DIBAR PATRICIA Start: 07-14-2019 Glucose blood reagent strip Caro Dibar patricia Work Phone: Start: 07-14-2019 Thromboplastin time partial plasma/whole blood CARO DIBARDINO Start: 07-14-2019 Thromboplastin time partial plasma/whole blood Caro Lockeardino Work Phone: Start: 07-14-2019 Glucose blood reagent strip CARO DIBAR PATRICIA Start: 07-14-2019 ARTERIAL BLOOD GAS, POC CARO DIBARDINO Start: 07-14-2019 Gluc bld gluc mntr dev cleared fda spec home use CARO DIBARDINO Start: 07-14-2019 Blood gases any combination ph pco2 po2 co2 hco3 CARO DIBARDINO Start: 07-14-2019 Glucose blood reagent strip Caro Dibar patricia Work Phone: Start: 07-14-2019 ARTERIAL BLOOD GAS, POC Caro Dibardino Work Phone: Start: 07-14-2019 Gluc bld gluc mntr dev cleared fda spec home use Caro Lockeardino Work Phone: Start: 07-14-2019 INITIATE OXYGEN THERAPY PROTOCOL CARO LOCKEARDINO Start: 07-14-2019 Ecg routine ecg w/least 12 lds w/i&r CARO LOCKEARDINO Start: 07-14-2019 Glucose blood reagent strip CARO DIBAR PATRICIA Start: 07-14-2019 Radiologic exam chest single view CARO LOCKEARDINO Start: 07-14-2019 Thromboplastin time partial plasma/whole blood CARO LOCKEARDINO Start: 07-14-2019 Glucose blood reagent strip Caro Dibar patricia Work Phone: Start: 07-14-2019 Assay of magnesium CARO LOCKEARDINO Start: 07-14-2019 Basic metabolic panel calcium total CARO DIBARDINO Start: 07-14-2019 Blood count complete automated CARO STOREY Start: 07-14-2019 Prothrombin time CARO LOCKEARDINO Start: 07-14-2019 ARTERIAL BLOOD GAS, POC CARO DIBARDINO Start: 07-14-2019 Radiologic exam chest single view Vasiliy Garcia Work Phone: Start: 07-14-2019 Thromboplastin time partial plasma/whole blood Hernán Manzano Work Phone: Start: 07-14-2019 Assay of magnesium Caro Lockeardino Work Phone: Start: 07-14-2019 Basic metabolic panel calcium total Caro Lockeardino Work Phone: Start: 07-14-2019 Blood count complete automated Caro Zhong vitor Work Phone: Start: 07-14-2019 Prothrombin time Caro Wrayno Work Phone: Start: 07-14-2019 ARTERIAL BLOOD GAS, POC Caro Wrayno Work Phone: Start: 07-14-2019 Ecg routine ecg w/least 12 lds w/i&r CARO LOCKEARDINO Start: 07-14-2019 EKG REPORT CARO DIBARDINO Start: 07-14-2019 INTAKE AND OUTPUT CARO DIBARDINO Start: 07-14-2019 STRICT INTAKE AND OUTPUT CARO DIBARDIN O Start: 07-14-2019 Potassium serum plasma/whole blood CARO LOCKEARDINO Start: 07-14-2019 Thromboplastin time partial plasma/whole blood CARO LOCKEARDINO Start: 07-14-2019 Ecg routine ecg w/least 12 lds trcg only w/o i&r Caro Wrayno Work Phone: Start: 07-14-2019 EKG REPORT Hpf Scanning Start: 07-13-2019 Potassium serum plasma/whole blood Caro Lockeardino Work Phone: Start: 07-13-2019 Thromboplastin time partial plasma/whole blood Cole Marc Work Phone: Start: 07-13-2019 Glucose blood reagent strip CARO DIBAR PATRICIA Start: 07-13-2019 Glucose blood reagent strip Caro Dibar patricia Work Phone: Start: 07-13-2019 MISCELLANEOUS NURSING CARE ORDER (SPECIFY) CARO LOCKEARDINO Start: 07-13-2019 Glucose blood reagent strip CARO DIBAR PATRICIA Start: 07-13-2019 Basic metabolic panel calcium total CARO LOCKEARDINO Start: 07-13-2019 Thromboplastin time partial plasma/whole blood CARO DIBARDINO Start: 07-13-2019 Glucose blood reagent strip Caro Dibar patricia Work Phone: Start: 07-13-2019 Insj prph ctr vad w/subq port age 3 yr/> CARO WRAYNO Start: 07-13-2019 MISCELLANEOUS NURSING CARE ORDER (SPECIFY) CARO TERESA Start: 07-13-2019 Ecg routine ecg w/least 12 lds w/i&r CARO TERESA Start: 07-13-2019 EKG REPORT CARO TERESA Start: 07-13-2019 Basic metabolic panel calcium total Nuha Coronel Work Phone: Start: 07-13-2019 Thromboplastin time partial plasma/whole blood Cole Marc Work Phone: Start: 07-13-2019 NOTIFY PHYSICIAN (SPECIFY) CARO BARRAZA Start: 07-13-2019 NURSING COMMUNICATION CARO TERESA Start: 07-13-2019 Glucose blood reagent strip CARO SMALLWOOD PATRICIA Start: 07-13-2019 Insj prph ctr vad w/subq port age 3 yr/> Rupali Camarillo Work Phone: Start: 07-13-2019 MISCELLANEOUS NURSING CARE ORDER (SPECIFY) Rupali Lydiaorne Work Phone: Start: 07-13-2019 Ecg routine ecg w/least 12 lds trcg only w/o i&r Nuha Coronel Work Phone: Start: 07-13-2019 EKG REPORT Hpf Scanning Start: 07-13-2019 RESTRAINTS NON-VIOLENT OR [id number] CARO TERESA Start: 07-13-2019 Glucose blood reagent strip Caro Smallwood patricia Work Phone: Start: 07-13-2019 INITIATE OXYGEN THERAPY PROTOCOL CARO TERESA Start: 07-13-2019 Glucose blood reagent strip CARO DIBAR PATRICIA Start: 07-13-2019 ARTERIAL BLOOD GAS, POC CARO DIBARDINO Start: 07-13-2019 Radiologic exam chest single view CARO TERESA Start: 07-13-2019 Glucose blood reagent strip Caro Dibar patricia Work Phone: Start: 07-13-2019 ARTERIAL BLOOD GAS, POC Caro Lockeardino Work Phone: Start: 07-13-2019 ANION GAP (CALC) POC CARO LOCKEARDIMOLLY Start: 07-13-2019 ARTERIAL BLOOD GAS, POC CARO LOCKEARDINO Start: 07-13-2019 Blood count hemoglobin CARO LOCKEARDINO Start: 07-13-2019 Calcium ionized CARO LOCKEARDINO Start: 07-13-2019 Chloride other source CARO LOCKEARDINO Start: 07-13-2019 CREATININE W/GFR POINT OF CARE CARO ESTVEEZINO Start: 07-13-2019 Gluc bld gluc mntr dev cleared fda spec home use CARO LOCKEARDINO Start: 07-13-2019 LACTIC ACID,POINT OF CARE CARO LOCKEARDI NO Start: 07-13-2019 Potassium serum plasma/whole blood CARO DIBARDINO Start: 07-13-2019 Sodium serum plasma or whole blood CARO LOCKEARDINO Start: 07-13-2019 Assay of magnesium CARO LOCKEARDINO Start: 07-13-2019 Assay of phosphorus inorganic CARO FARNSWORTHDINO Start: 07-13-2019 Assay of triiodothyronine t3 free CARO LOCKEARDINO Start: 07-13-2019 Basic metabolic panel calcium total CARO LOCKEARDINO Start: 07-13-2019 Blood count complete automated CAROCHANELL STOREY Start: 07-13-2019 Prothrombin time CARO LOCKEARDINO Start: 07-13-2019 Thromboplastin time partial plasma/whole blood CARO LOCKEARDINO Start: 07-13-2019 Radiologic exam chest single view Vasiliy Gacria Work Phone: Start: 07-13-2019 End: 07-13-2019 ANION GAP (CALC) POC Caro Lockeardino Work Phone: Start: 07-13-2019 End: 07-13-2019 ARTERIAL BLOOD GAS, POC Caro Lockeardino Work Phone: Start: 07-13-2019 End: 07-13-2019 Blood count hemoglobin Caro Lockeardino Work Phone: Start: 07-13-2019 End: 07-13-2019 CALCIUM, IONIC (POC) Caro Dibardino Work Phone: Start: 07-13-2019 End: 07-13-2019 Chloride [Moles/Vol] Caro Dibardino Work Phone: Start: 07-13-2019 End: 07-13-2019 CREATININE W/GFR POINT OF CARE Carochanell Storey Work Phone: Start: 07-13-2019 End: 07-13-2019 Gluc bld gluc mntr dev cleared fda spec home use Caro Teresa Work Phone: Start: 07-13-2019 End: 07-13-2019 LACTIC ACID,POINT OF CARE Caro Wray no Work Phone: Start: 07-13-2019 End: 07-13-2019 Potassium [Moles/Vol] Caro Wrayno Work Phone: Start: 07-13-2019 End: 07-13-2019 Sodium [Moles/Vol] Caro Wrayno Work Phone: Start: 07-13-2019 Assay of magnesium Caro Wrayno Work Phone: Start: 07-13-2019 Assay of phosphorus inorganic Caro farnsworthdino Work Phone: Start: 07-13-2019 Assay of triiodothyronine t3 free Caro Teresa Work Phone: Start: 07-13-2019 Basic metabolic panel calcium total Caro Teresa Work Phone: Start: 07-13-2019 Blood count complete automated Caro Storey Work Phone: Start: 07-13-2019 Prothrombin time Caro Teresa Work Phone: Start: 07-13-2019 Thromboplastin time partial plasma/whole blood Caro Wrayno Work Phone: Start: 07-13-2019 STRICT INTAKE AND OUTPUT CARO DIBARDIN O Start: 07-13-2019 INTAKE AND OUTPUT CARO DIBARDINO Start: 07-12-2019 Glucose blood reagent strip CARO DIBAR PATRICIA Start: 07-12-2019 Thromboplastin time partial plasma/whole blood CARO DIBARDINO Start: 07-12-2019 Glucose blood reagent strip Caro Dibar patricia Work Phone: Start: 07-12-2019 Thromboplastin time partial plasma/whole blood Nuha Coronel Work Phone: Start: 07-12-2019 ARTERIAL BLOOD GAS, POC CARO DIBARDINO Start: 07-12-2019 Localize cerebral seizure cable/radio eeg/video CARO LOCKEARDINO Start: 07-12-2019 Microsomal antibodies each CARO MOTA MADI Start: 07-12-2019 Glucose blood reagent strip CARO SELIN PATRICIA Start: 07-12-2019 ARTERIAL BLOOD GAS, POC Caro Lockeardino Work Phone: Start: 07-12-2019 EEG VIDEO MONITORING Meseret Arechiga Work Phone: Start: 07-12-2019 Microsomal antibodies each Landen Lua Work Phone: Start: 07-12-2019 THYROGLOBULIN AND ANTI-THYROGLOBULIN AB Landen Lua Work Phone: Start: 07-12-2019 PREVIOUS SPECIMEN CARO TERESA Start: 07-12-2019 Thromboplastin time partial plasma/whole blood CARO LOCKEARDINO Start: 07-12-2019 Glucose blood reagent strip Caro Smallwood patricia Work Phone: Start: 07-12-2019 Assay of free thyroxine CARO WRAYNO Start: 07-12-2019 Assay of thyroid stimulating hormone tsh CARO WRAYNO Start: 07-12-2019 Thromboplastin time partial plasma/whole blood Caro Teresa Work Phone: Start: 07-12-2019 Mra head w/o contrst material CARO CORNELIA ARDINO Start: 07-12-2019 Mra neck w/o contrst material CARO CORNELIA ARDINO Start: 07-12-2019 Mri brain brain stem w/o contrast material CARO WRAYNO Start: 07-12-2019 Assay of free thyroxine Jenniferbette Homer Work Phone: Start: 07-12-2019 Assay of thyroid stimulating hormone tsh Landen Lua Work Phone: Start: 07-12-2019 ARTERIAL BLOOD GAS, POC CARO DIBARDINO Start: 07-12-2019 Glucose blood reagent strip CARO CORNELIAAR PATRICIA Start: 07-12-2019 Mra head w/o contrst material [facility] ller Work Phone: Start: 07-12-2019 Mra neck w/o contrst material [facility] ller Work Phone: Start: 07-12-2019 Mri brain brain stem w/o contrast material Meseret Arechgia Work Phone: Start: 07-12-2019 ARTERIAL BLOOD GAS, POC Caro Corneliaardino Work Phone: Start: 07-12-2019 Glucose blood reagent strip Caro Lockejavad patricia Work Phone: Start: 07-12-2019 INITIATE OXYGEN THERAPY PROTOCOL CARO LOCKEARDINO Start: 07-12-2019 Radiologic exam chest single view CARO DIBARDINO Start: 07-12-2019 ANION GAP (CALC) POC CARO DIBARDINO Start: 07-12-2019 ARTERIAL BLOOD GAS, POC CARO DIBARDINO Start: 07-12-2019 Blood count hemoglobin CARO CORNELIAARDINO Start: 07-12-2019 Calcium ionized CARO CORNELIAARDINO Start: 07-12-2019 Chloride other source CARO CORNELIAARDINO Start: 07-12-2019 CREATININE W/GFR POINT OF CARE CARO STOREY Start: 07-12-2019 Gluc bld gluc mntr dev cleared fda spec home use CARO DIBARDINO Start: 07-12-2019 LACTIC ACID,POINT OF CARE CARO DIBARDI NO Start: 07-12-2019 Potassium serum plasma/whole blood CARO DIBARDINO Start: 07-12-2019 Sodium serum plasma or whole blood CARO DIBARDINO Start: 07-12-2019 Assay of magnesium CARO CORNELIAARDINO Start: 07-12-2019 Assay of phosphorus inorganic CARO LOCKE ARDINO Start: 07-12-2019 Basic metabolic panel calcium total CARO DIBARDINO Start: 07-12-2019 Blood count complete automated CARO ESTEVEZINO Start: 07-12-2019 Cortisol total CARO DIBARDINO Start: 07-12-2019 Cyanocobalamin vitamin b-12 CARO CORNELIAAR PATRICIA Start: 07-12-2019 Prothrombin time CARO DIBARDINO Start: 07-12-2019 Thromboplastin time partial plasma/whole blood CARO DIBARDINO Start: 07-12-2019 Radiologic exam chest single view Vasiliy Garcia Work Phone: Start: 07-12-2019 ANION GAP (CALC) POC Caro Lockeardino Work Phone: Start: 07-12-2019 ARTERIAL BLOOD GAS, POC Caro Teresa Work Phone: Start: 07-12-2019 Blood count hemoglobin Caro Teresa Work Phone: Start: 07-12-2019 CALCIUM, IONIC (POC) Caro Wrayno Work Phone: Start: 07-12-2019 Chloride [Moles/Vol] Caro Wrayno Work Phone: Start: 07-12-2019 CREATININE W/GFR POINT OF CARE Caro Storey Work Phone: Start: 07-12-2019 Gluc bld gluc mntr dev cleared fda spec home use Caro Teresa Work Phone: Start: 07-12-2019 LACTIC ACID,POINT OF CARE Caro Wray no Work Phone: Start: 07-12-2019 Potassium [Moles/Vol] Caro Wrayno Work Phone: Start: 07-12-2019 Sodium [Moles/Vol] Caro Wrayno Work Phone: Start: 07-12-2019 Assay of magnesium Caro Teresa Work Phone: Start: 07-12-2019 Assay of phosphorus inorganic Caro lyncho Work Phone: Start: 07-12-2019 Basic metabolic panel calcium total Caro Teresa Work Phone: Start: 07-12-2019 Blood count complete automated Caro Storey Work Phone: Start: 07-12-2019 Cortisol total Caro Teresa Work Phone: Start: 07-12-2019 GENERIC LABORATORY CHARGE Caro Wray no Work Phone: Start: 07-12-2019 Prothrombin time Caro Wrayno Work Phone: Start: 07-12-2019 Thromboplastin time partial plasma/whole blood Caro Wrayno Work Phone: Start: 07-12-2019 STRICT INTAKE AND OUTPUT CARO WRAYN O Start: 07-12-2019 INTAKE AND OUTPUT CARO DIBARDINO Start: 07-12-2019 Electrolyte panel CARO DIBARDINO Start: 07-12-2019 Assay of magnesium CARO DIBARDINO Start: 07-11-2019 Electrolyte panel Enio Zarate Work Phone: Start: 07-11-2019 Assay of magnesium Enio Collierage Work Phone: Start: 07-11-2019 Glucose blood reagent strip CARO DIBAR PATRICIA Start: 07-11-2019 Glucose blood reagent strip Caro Dibar patricia Work Phone: Start: 07-11-2019 CULTURE, BLOOD 1 CARO DIBARDINO Start: 07-11-2019 Virus centrifuge enhncd id imfluor stain ea CARO DIBARDINO Start: 07-11-2019 ANION GAP (CALC) POC CARO DIBARDINO Start: 07-11-2019 ARTERIAL BLOOD GAS, POC CARO DIBARDINO Start: 07-11-2019 Blood count hemoglobin CARO DIBARDINO Start: 07-11-2019 Calcium ionized CARO DIBARDINO Start: 07-11-2019 Chloride other source CARO DIBARDINO Start: 07-11-2019 CREATININE W/GFR POINT OF CARE CARO ESTEVEZINO Start: 07-11-2019 Gluc bld gluc mntr dev cleared fda spec home use CARO DIBARDINO Start: 07-11-2019 LACTIC ACID,POINT OF CARE CARO DIBARDI NO Start: 07-11-2019 Potassium serum plasma/whole blood CARO DIBARDINO Start: 07-11-2019 Sodium serum plasma or whole blood CARO DIBARDINO Start: 07-11-2019 End: 07-11-2019 CULTURE, BLOOD 1 Vasiliy A Neema Work Phone: Start: 07-11-2019 Virus centrifuge enhncd id imfluor stain ea Titus Hyde Work Phone: Start: 07-11-2019 ANION GAP (CALC) POC CARO DIBARDINO Start: 07-11-2019 ARTERIAL BLOOD GAS, POC CARO DIBARDINO Start: 07-11-2019 Calcium ionized CARO DIBARDINO Start: 07-11-2019 Chloride other source CARO DIBARDINO Start: 07-11-2019 CREATININE W/GFR POINT OF CARE CARO DI BARDINO Start: 07-11-2019 LACTIC ACID,POINT OF CARE CARO LOCKETD NO Start: 07-11-2019 Potassium serum plasma/whole blood CARO DIBARDINO Start: 07-11-2019 Sodium serum plasma or whole blood CARO DIBARDINO Start: 07-11-2019 ANION GAP (CALC) POC Caro Locketdno Work Phone: Start: 07-11-2019 ARTERIAL BLOOD GAS, POC Caro Corneliatdno Work Phone: Start: 07-11-2019 Blood count hemoglobin Caro Locketdno Work Phone: Start: 07-11-2019 CALCIUM, IONIC (POC) Caro Corneliatdno Work Phone: Start: 07-11-2019 Chloride [Moles/Vol] Caro Corneliatdno Work Phone: Start: 07-11-2019 CREATININE W/GFR POINT OF CARE Caro Di vitor Work Phone: Start: 07-11-2019 Gluc bld gluc mntr dev cleared fda spec home use Caro Locketdno Work Phone: Start: 07-11-2019 LACTIC ACID,POINT OF CARE Caro Locketd no Work Phone: Start: 07-11-2019 Potassium [Moles/Vol] Caro Lockedtno Work Phone: Start: 07-11-2019 Sodium [Moles/Vol] Caro Locketdno Work Phone: Start: 07-11-2019 ANION GAP (CALC) POC CARO CORNELIATDNO Start: 07-11-2019 ARTERIAL BLOOD GAS, POC CARO DIBTDNO Start: 07-11-2019 Calcium ionized CARO DIBARDINO Start: 07-11-2019 Chloride other source CARO LOCKEARDINO Start: 07-11-2019 CREATININE W/GFR POINT OF CARE CARO STOREY Start: 07-11-2019 LACTIC ACID,POINT OF CARE CARO DIBARDI NO Start: 07-11-2019 Potassium serum plasma/whole blood CARO LOCKEARDINO Start: 07-11-2019 Sodium serum plasma or whole blood CARO DIBARDINO Start: 07-11-2019 ANION GAP (CALC) POC Caro Dibardino Work Phone: Start: 07-11-2019 ARTERIAL BLOOD GAS, POC Caro Lockeardino Work Phone: Start: 07-11-2019 Blood count hemoglobin Caro Lockeardino Work Phone: Start: 07-11-2019 CALCIUM, IONIC (POC) Caro Lockeardino Work Phone: Start: 07-11-2019 Chloride [Moles/Vol] Caro Lockeardino Work Phone: Start: 07-11-2019 CREATININE W/GFR POINT OF CARE Caro Farheen adler Work Phone: Start: 07-11-2019 Gluc bld gluc mntr dev cleared fda spec home use Caro Locketdno Work Phone: Start: 07-11-2019 LACTIC ACID,POINT OF CARE Caro Dibardi no Work Phone: Start: 07-11-2019 Potassium [Moles/Vol] Caro Lockeardino Work Phone: Start: 07-11-2019 Sodium [Moles/Vol] Caro Lockeardino Work Phone: Start: 07-11-2019 Assay of magnesium CARO CORNELIAARDINO Start: 07-11-2019 Basic metabolic panel calcium total CARO DIBARDINO Start: 07-11-2019 Thromboplastin time partial plasma/whole blood CARO DIBARDINO Start: 07-11-2019 ANION GAP (CALC) POC CARO DIBARDINO Start: 07-11-2019 ARTERIAL BLOOD GAS, POC CARO DIBARDINO Start: 07-11-2019 Calcium ionized CARO DIBARDINO Start: 07-11-2019 Chloride other source CARO DIBARDINO Start: 07-11-2019 CREATININE W/GFR POINT OF CARE CARO ESTEVEZINO Start: 07-11-2019 LACTIC ACID,POINT OF CARE CARO DIBARDI NO Start: 07-11-2019 Potassium serum plasma/whole blood CARO DIBARDINO Start: 07-11-2019 Sodium serum plasma or whole blood CARO DIBARDINO Start: 07-11-2019 ANION GAP (CALC) POC Caro Lockeardino Work Phone: Start: 07-11-2019 ARTERIAL BLOOD GAS, POC Caro Wrayno Work Phone: Start: 07-11-2019 Blood count hemoglobin Caro Wrayno Work Phone: Start: 07-11-2019 CALCIUM, IONIC (POC) Caro Wrayno Work Phone: Start: 07-11-2019 Chloride [Moles/Vol] Caro Locketdno Work Phone: Start: 07-11-2019 CREATININE W/GFR POINT OF CARE Caro Zhong vitor Work Phone: Start: 07-11-2019 Gluc bld gluc mntr dev cleared fda spec home use Caro Wraymolly Work Phone: Start: 07-11-2019 LACTIC ACID,POINT OF CARE Caro Wray molly Work Phone: Start: 07-11-2019 Potassium [Moles/Vol] Caro Locketdno Work Phone: Start: 07-11-2019 Sodium [Moles/Vol] Caro Locketdno Work Phone: Start: 07-11-2019 Assay of magnesium Caro Wraymolly Work Phone: Start: 07-11-2019 Basic metabolic panel calcium total Caro Teresa Work Phone: Start: 07-11-2019 Thromboplastin time partial plasma/whole blood Vasiliy Garcia Work Phone: Start: 07-11-2019 ANION GAP (CALC) POC Caro Wrayno Work Phone: Start: 07-11-2019 ARTERIAL BLOOD GAS, POC Caro Wrayno Work Phone: Start: 07-11-2019 Blood count hemoglobin Caro Locketdno Work Phone: Start: 07-11-2019 CALCIUM, IONIC (POC) Caro Corneliatdno Work Phone: Start: 07-11-2019 Chloride [Moles/Vol] Caro Corneliatdno Work Phone: Start: 07-11-2019 CREATININE W/GFR POINT OF CARE Caro Estevezino Work Phone: Start: 07-11-2019 Gluc bld gluc mntr dev cleared fda spec home use Caro Dibardino Work Phone: Start: 07-11-2019 LACTIC ACID,POINT OF CARE Caro Dibardi no Work Phone: Start: 07-11-2019 Potassium [Moles/Vol] Caro Dibardino Work Phone: Start: 07-11-2019 Sodium [Moles/Vol] Caro Dibardino Work Phone: Start: 07-11-2019 IP CONSULT TO INFECTIOUS DISEASES CARO LOCKEARDINO Start: 07-11-2019 Radiologic exam chest single view CARO DIBARDINO Start: 07-11-2019 ANION GAP (CALC) POC CARO DIBARDINO Start: 07-11-2019 ARTERIAL BLOOD GAS, POC CARO DIBARDINO Start: 07-11-2019 Blood count hemoglobin CARO DIBARDINO Start: 07-11-2019 Calcium ionized CARO DIBARDINO Start: 07-11-2019 Chloride other source CARO DIBARDINO Start: 07-11-2019 CREATININE W/GFR POINT OF CARE CARO ESTEVEZINO Start: 07-11-2019 Gluc bld gluc mntr dev cleared fda spec home use CARO DIBARDINO Start: 07-11-2019 LACTIC ACID,POINT OF CARE CARO DIBARDI NO Start: 07-11-2019 Potassium serum plasma/whole blood CARO DIBARDINO Start: 07-11-2019 Sodium serum plasma or whole blood CARO DIBARDINO Start: 07-11-2019 INITIATE OXYGEN THERAPY PROTOCOL CARO LOCKEARDINO Start: 07-11-2019 Radiologic exam chest single view Vasiliy Garcia Work Phone: Start: 07-11-2019 ANION GAP (CALC) POC CARO DIBARDINO Start: 07-11-2019 ARTERIAL BLOOD GAS, POC CARO DIBARDINO Start: 07-11-2019 Calcium ionized CARO DIBARDINO Start: 07-11-2019 Chloride other source CARO DIBARDINO Start: 07-11-2019 CREATININE W/GFR POINT OF CARE CARO ZHONG BARDINO Start: 07-11-2019 LACTIC ACID,POINT OF CARE CARO WRAY NO Start: 07-11-2019 NOTIFICATION PANEL, POC CARO WRAYNO Start: 07-11-2019 Potassium serum plasma/whole blood CARO LOCKEARDINO Start: 07-11-2019 Sodium serum plasma or whole blood CARO LOCKEARDINO Start: 07-11-2019 ANION GAP (CALC) POC Caro Wrayno Work Phone: Start: 07-11-2019 ARTERIAL BLOOD GAS, POC Caro Wrayno Work Phone: Start: 07-11-2019 Blood count hemoglobin Caor Wrayno Work Phone: Start: 07-11-2019 CALCIUM, IONIC (POC) Caro Wrayno Work Phone: Start: 07-11-2019 Chloride [Moles/Vol] Caro Wrayno Work Phone: Start: 07-11-2019 CREATININE W/GFR POINT OF CARE Caor Storey Work Phone: Start: 07-11-2019 Gluc bld gluc mntr dev cleared fda spec home use Caro Wrayno Work Phone: Start: 07-11-2019 LACTIC ACID,POINT OF CARE Caro Wray no Work Phone: Start: 07-11-2019 Potassium [Moles/Vol] Caro Wrayno Work Phone: Start: 07-11-2019 Sodium [Moles/Vol] Caro Wrayno Work Phone: Start: 07-11-2019 Radiologic exam chest single view Vasiliy Garcia Work Phone: Start: 07-11-2019 Calcium ionized CARO WRAYNO Start: 07-11-2019 IP CONSULT TO PULMONOLOGY CARO WRAY NO Start: 07-11-2019 ANION GAP (CALC) POC CARO TERESA Start: 07-11-2019 ARTERIAL BLOOD GAS, POC CRAO WRAYNO Start: 07-11-2019 Chloride other source CARO TERESA Start: 07-11-2019 CREATININE W/GFR POINT OF CARE CARO STOREY Start: 07-11-2019 LACTIC ACID,POINT OF CARE CARO WRAY NO Start: 07-11-2019 NOTIFICATION PANEL, POC CARO TERESA Start: 07-11-2019 Potassium serum plasma/whole blood CARO CORNELIATDNO Start: 07-11-2019 Sodium serum plasma or whole blood CARO CORNELIAARDINO Start: 07-11-2019 ANION GAP (CALC) POC Caro Locketdno Work Phone: Start: 07-11-2019 ARTERIAL BLOOD GAS, POC Caro Locketdno Work Phone: Start: 07-11-2019 Blood count hemoglobin Caro Locketdno Work Phone: Start: 07-11-2019 CALCIUM, IONIC (POC) Caro Locketdno Work Phone: Start: 07-11-2019 Chloride [Moles/Vol] Caro Corneliatdno Work Phone: Start: 07-11-2019 CREATININE W/GFR POINT OF CARE Caro Storey Work Phone: Start: 07-11-2019 Gluc bld gluc mntr dev cleared fda spec home use Caro Wrayno Work Phone: Start: 07-11-2019 LACTIC ACID,POINT OF CARE Caro Locketd no Work Phone: Start: 07-11-2019 NOTIFICATION PANEL, POC Caro Wrayno Work Phone: Start: 07-11-2019 Potassium [Moles/Vol] Caro Corneliatdno Work Phone: Start: 07-11-2019 Sodium [Moles/Vol] Caro Corneliatdno Work Phone: Start: 07-11-2019 Radiologic exam chest single view CARO TERESA Start: 07-11-2019 Calcium ionized CARO TERESA Start: 07-11-2019 Blood gases any combination ph [id number] [id number] co2 [id number] CARO TERESA Start: 07-11-2019 Assay of magnesium CARO TERESA Start: 07-11-2019 Assay of phosphorus inorganic CARO LYNCHO Start: 07-11-2019 Basic metabolic panel calcium total CARO TERESA Start: 07-11-2019 Blood count complete automated CARO STOREY Start: 07-11-2019 Prothrombin time CARO MALICK Start: 07-11-2019 Thromboplastin time partial plasma/whole blood CARO TERESA Start: 07-11-2019 End: 07-11-2019 ANION GAP (CALC) POC Caro Malick Work Phone: Start: 07-11-2019 End: 07-11-2019 ARTERIAL BLOOD GAS, POC Caro Lockemanuel Work Phone: Start: 07-11-2019 End: 07-11-2019 Blood count hemoglobin Caro Lockemanuel Work Phone: Start: 07-11-2019 End: 07-11-2019 CALCIUM, IONIC (POC) Carochanell Teresa Work Phone: Start: 07-11-2019 End: 07-11-2019 Chloride [Moles/Vol] Carochanell Teresa Work Phone: Start: 07-11-2019 End: 07-11-2019 CREATININE W/GFR POINT OF CARE Caro Storey Work Phone: Start: 07-11-2019 End: 07-11-2019 Gluc bld gluc mntr dev cleared fda spec home use Caro Lockemanuel Work Phone: Start: 07-11-2019 End: 07-11-2019 LACTIC ACID,POINT OF CARE Caro Locketd schroeder Work Phone: Start: 07-11-2019 NOTIFICATION PANEL, POC Caro [employer] Work Phone: Start: 07-11-2019 End: 07-11-2019 Potassium [Moles/Vol] Caro Teresa Work Phone: Start: 07-11-2019 End: 07-11-2019 Sodium [Moles/Vol] Caro Teresa Work Phone: Start: 07-11-2019 Radiologic exam chest single view Chica Patino Work Phone: Start: 07-11-2019 Calcium ionized Kuladeep Gidda Work Phone: Start: 07-11-2019 Assay of magnesium Caro Dibardino Work Phone: Start: 07-11-2019 Assay of phosphorus inorganic Caro farnsworthdino Work Phone: Start: 07-11-2019 Basic metabolic panel calcium total Caro Wrayno Work Phone: Start: 07-11-2019 Blood count complete automated Caro Zhong vitor Work Phone: Start: 07-11-2019 Prothrombin time Caro Wrayno Work Phone: Start: 07-11-2019 Thromboplastin time partial plasma/whole blood Vasiliy Pérezse Work Phone: Start: 07-11-2019 STRICT INTAKE AND OUTPUT CARO WRAYN O Start: 07-11-2019 INTAKE AND OUTPUT CARO LOCKEARDINO Start: 07-11-2019 Thromboplastin time partial plasma/whole blood CARO LOCKEARDINO Start: 07-11-2019 Thromboplastin time partial plasma/whole blood Vasiliy Daniele Garcia Work Phone: Start: 07-11-2019 Ecg routine ecg w/least 12 lds w/i&r CARO LOCKEARDINO Start: 07-11-2019 EKG REPORT CARO DIBARDINO Start: 07-10-2019 Glucose blood reagent strip CARO LOCKEAR PATRICIA Start: 07-10-2019 Ecg routine ecg w/least 12 lds i&r only Federico Smith Work Phone: Start: 07-10-2019 EKG REPORT Hpf Scanning Start: 07-10-2019 Glucose blood reagent strip Caro Lockear patricia Work Phone: Start: 07-10-2019 Thromboplastin time partial plasma/whole blood CARO DIBARDINO Start: 07-10-2019 Glucose blood reagent strip CARO DIBAR PATRICIA Start: 07-10-2019 Thromboplastin time partial plasma/whole blood Vasiliy A Garcia Work Phone: Start: 07-10-2019 Glucose blood reagent strip Caro Dibar patricia Work Phone: Start: 07-10-2019 ARTERIAL BLOOD GAS, POC CARO WRAYNO Start: 07-10-2019 Gluc bld gluc mntr dev cleared fda spec home use CARO DIBARDINO Start: 07-10-2019 LACTIC ACID,POINT OF CARE CARO CORNELIAARDI NO Start: 07-10-2019 Thromboplastin time partial plasma/whole blood CARO DIBARDINO Start: 07-10-2019 Glucose blood reagent strip CARO LOCKEJAVAD PATRICIA Start: 07-10-2019 IP CONSULT TO CRITICAL CARE CARO SELIN PATRICIA Start: 07-10-2019 ARTERIAL BLOOD GAS, POC Caro Teresa Work Phone: Start: 07-10-2019 Gluc bld gluc mntr dev cleared fda spec home use Caro Dibardino Work Phone: Start: 07-10-2019 LACTIC ACID,POINT OF CARE Caro Dibardi no Work Phone: Start: 07-10-2019 Thromboplastin time partial plasma/whole blood Vasiliy Garcia Work Phone: Start: 07-10-2019 Glucose blood reagent strip Caro Selin patricia Work Phone: Start: 07-10-2019 IP CONSULT TO IV TEAM CARO TERESA Start: 07-10-2019 TRANSFER PATIENT CARO LOCKEMANUEL Start: 07-10-2019 INITIATE OXYGEN THERAPY PROTOCOL CARO MALICK Start: 07-10-2019 ARTERIAL BLOOD GAS, POC CARO WRAYNO Start: 07-10-2019 Gluc bld gluc mntr dev cleared fda spec home use CARO DIBARDINO Start: 07-10-2019 LACTIC ACID,POINT OF CARE CARO LOCKEARDI NO Start: 07-10-2019 POC BLOOD GAS CARO WRAYNO Start: 07-10-2019 Glucose blood reagent strip CARO SELIN PATRICIA Start: 07-10-2019 POC BLOOD GAS CARO DIBARDINO Start: 07-10-2019 ANION GAP (CALC) POC CARO DIBARDINO Start: 07-10-2019 ARTERIAL BLOOD GAS, POC CARO DIBARDINO Start: 07-10-2019 Blood count hemoglobin CARO LOCKEARDINO Start: 07-10-2019 Calcium ionized CARO LOCKEARDINO Start: 07-10-2019 Chloride other source CARO WRAYNO Start: 07-10-2019 CREATININE W/GFR POINT OF CARE CARO STOREY Start: 07-10-2019 LACTIC ACID,POINT OF CARE CARO DIBARDI NO Start: 07-10-2019 Potassium serum plasma/whole blood CARO LOCKEARDINO Start: 07-10-2019 Sodium serum plasma or whole blood CARO LOCKEARDINO Start: 07-10-2019 ARTERIAL BLOOD GAS, POC Caro Corneliatdno Work Phone: Start: 07-10-2019 Gluc bld gluc mntr dev cleared fda spec home use Caro Locketdno Work Phone: Start: 07-10-2019 LACTIC ACID,POINT OF CARE Caro Lockeardi no Work Phone: Start: 07-10-2019 Glucose blood reagent strip Caro Smallwood patricia Work Phone: Start: 07-10-2019 Radiologic exam chest single view CARO TERESA Start: 07-10-2019 Ct head/brain w/o contrast material CARO CORNELIATDNO Start: 07-10-2019 Assay of magnesium CARO CORNELIATDNO Start: 07-10-2019 Assay of phosphorus inorganic CARO CORNELIA JAVADDINO Start: 07-10-2019 Basic metabolic panel calcium total CARO DIBTDNO Start: 07-10-2019 Blood count complete automated CARO STOREY Start: 07-10-2019 Prothrombin time CARO DIBTDNO Start: 07-10-2019 Thromboplastin time partial plasma/whole blood CARO DIBARDINO Start: 07-10-2019 ANION GAP (CALC) POC CARO CORNELIAARDINO Start: 07-10-2019 ARTERIAL BLOOD GAS, POC CARO DIBARDINO Start: 07-10-2019 Calcium ionized CARO DIBTDNO Start: 07-10-2019 Chloride other source CARO CORNELIAARDINO Start: 07-10-2019 CREATININE W/GFR POINT OF CARE CARO FARHEEN INO Start: 07-10-2019 LACTIC ACID,POINT OF CARE CARO DIBTD NO Start: 07-10-2019 Potassium serum plasma/whole blood CARO CORNELIAARDINO Start: 07-10-2019 Sodium serum plasma or whole blood CARO CORNELIAARDINO Start: 07-10-2019 ABG DRAW CARO CORNELIATDNO Start: 07-10-2019 ANION GAP (CALC) POC Caro Corneliaardino Work Phone: Start: 07-10-2019 ARTERIAL BLOOD GAS, POC Caro Corneliaardino Work Phone: Start: 07-10-2019 Blood count hemoglobin Caro Wrayno Work Phone: Start: 07-10-2019 CALCIUM, IONIC (POC) Caro Wrayno Work Phone: Start: 07-10-2019 Chloride [Moles/Vol] Caro Wrayno Work Phone: Start: 07-10-2019 CREATININE W/GFR POINT OF CARE Caro Storey Work Phone: Start: 07-10-2019 Gluc bld gluc mntr dev cleared fda spec home use Caro Wrayno Work Phone: Start: 07-10-2019 LACTIC ACID,POINT OF CARE Caro Wray no Work Phone: Start: 07-10-2019 Potassium [Moles/Vol] Caro Wrayno Work Phone: Start: 07-10-2019 Sodium [Moles/Vol] Caro Wrayno Work Phone: Start: 07-10-2019 Radiologic exam chest single view Brianna L Scheadakun Work Phone: Start: 07-10-2019 Ct head/brain w/o contrast material Vasiliy Garcia Work Phone: Start: 07-10-2019 Assay of magnesium Caro Teresa Work Phone: Start: 07-10-2019 Assay of phosphorus inorganic Caro farnsworthprmeao Work Phone: Start: 07-10-2019 Basic metabolic panel calcium total Caro Wrayno Work Phone: Start: 07-10-2019 Blood count complete automated Caro Storey Work Phone: Start: 07-10-2019 Prothrombin time Caro Wrayno Work Phone: Start: 07-10-2019 Thromboplastin time partial plasma/whole blood Caro Wrayno Work Phone: Start: 07-10-2019 ANION GAP (CALC) POC Caro Locketdno Work Phone: Start: 07-10-2019 ARTERIAL BLOOD GAS, POC Caro Wrayno Work Phone: Start: 07-10-2019 Blood count hemoglobin Carochanell Wrayno Work Phone: Start: 07-10-2019 CALCIUM, IONIC (POC) Caro Wrayno Work Phone: Start: 07-10-2019 Chloride [Moles/Vol] Caro Wrayno Work Phone: Start: 07-10-2019 CREATININE W/GFR POINT OF CARE Carochanell Storey Work Phone: Start: 07-10-2019 Gluc bld gluc mntr dev cleared fda spec home use Caro Teresa Work Phone: Start: 07-10-2019 LACTIC ACID,POINT OF CARE Caro Wray no Work Phone: Start: 07-10-2019 Potassium [Moles/Vol] Caro Wrayno Work Phone: Start: 07-10-2019 Sodium [Moles/Vol] Caro Lockeardino Work Phone: Start: 07-10-2019 ABG DRAW Vasiliy Garcia Work Phone: Start: 07-10-2019 INTAKE AND OUTPUT CARO DIBARDINO Start: 07-10-2019 STRICT INTAKE AND OUTPUT CARO LOCKEARDIN O Start: 07-09-2019 REMOVE ARTERIAL LINE CARO TERESA Start: 07-09-2019 Glucose blood reagent strip CARO LOCKEAR PATRICIA Start: 07-09-2019 Glucose blood reagent strip Caro Dibar patricia Work Phone: Start: 07-09-2019 Thromboplastin time partial plasma/whole blood CARO LOCKEARDINO Start: 07-09-2019 Glucose blood reagent strip CARO DIBAR PATRICIA Start: 07-09-2019 Ecg routine ecg w/least 12 lds w/i&r CARO WRAYNO Start: 07-09-2019 EKG REPORT CARO TERESA Start: 07-09-2019 Thromboplastin time partial plasma/whole blood Vasiliy Garcia Work Phone: Start: 07-09-2019 Glucose blood reagent strip Caro Dibar patricia Work Phone: Start: 07-09-2019 Ecg routine ecg w/least 12 lds trcg only w/o i&r Nuha Coronel Work Phone: Start: 07-09-2019 EKG REPORT Hpf Scanning Start: 07-09-2019 CHEST TUBE REMOVAL CARO WRAYNO Start: 07-09-2019 Basic metabolic panel calcium total CARO DIBARDINO Start: 07-09-2019 Blood count complete automated CARO ESTEVEZINO Start: 07-09-2019 ARTERIAL BLOOD GAS, POC CARO DIBARDINO Start: 07-09-2019 LACTIC ACID,POINT OF CARE CARO LOCKEARDI NO Start: 07-09-2019 Potassium serum plasma/whole blood CARO LOCKEARDINO Start: 07-09-2019 Glucose blood reagent strip CARO LOCKEAR PATRICIA Start: 07-09-2019 Basic metabolic panel calcium total Caro Lockeardino Work Phone: Start: 07-09-2019 Blood count complete automated Caro Estevezino Work Phone: Start: 07-09-2019 ARTERIAL BLOOD GAS, POC Caro Corneliaardino Work Phone: Start: 07-09-2019 LACTIC ACID,POINT OF CARE Caro Dibardi no Work Phone: Start: 07-09-2019 Potassium [Moles/Vol] Caro Lockeardino Work Phone: Start: 07-09-2019 Glucose blood reagent strip Caro Dibar patricia Work Phone: Start: 07-09-2019 INITIATE OXYGEN THERAPY PROTOCOL CARO LOCKEARDINO Start: 07-09-2019 Glucose blood reagent strip CARO DIBAR PATRICIA Start: 07-09-2019 Radiologic exam chest single view CARO TERESA Start: 07-09-2019 Assay of magnesium CARO TERESA Start: 07-09-2019 Assay of phosphorus inorganic CARO LOCKE ARDINO Start: 07-09-2019 Assay of triglycerides CARO WRAYNO Start: 07-09-2019 Blood count complete automated CARO ESTEVEZINO Start: 07-09-2019 Comprehensive metabolic panel CARO CORNELIA ARDINO Start: 07-09-2019 Prothrombin time CARO LOCKEARDINO Start: 07-09-2019 Thromboplastin time partial plasma/whole blood CARO LOCKEARDINO Start: 07-09-2019 Glucose blood reagent strip Caro Lockear patricia Work Phone: Start: 07-09-2019 Radiologic exam chest single view Brianna L Christlkun Work Phone: Start: 07-09-2019 Assay of magnesium Caro Locketdno Work Phone: Start: 07-09-2019 Assay of phosphorus inorganic Shant Ear ly Work Phone: Start: 07-09-2019 Assay of triglycerides Shant Early Work Phone: Start: 07-09-2019 Blood count complete automated Caro Zhong vitor Work Phone: Start: 07-09-2019 Comprehensive metabolic panel Shant Ear ly Work Phone: Start: 07-09-2019 Prothrombin time Caro Locketdno Work Phone: Start: 07-09-2019 Thromboplastin time partial plasma/whole blood Shant Pearson Work Phone: Start: 07-09-2019 INTAKE AND OUTPUT CARO DIBARDINO Start: 07-09-2019 STRICT INTAKE AND OUTPUT CARO DIBARDIN O Start: 07-09-2019 Assay of ammonia CARO LOCKETDNO Start: 07-09-2019 Hepatic function panel CARO LOCKEARDINO Start: 07-08-2019 Glucose blood reagent strip CARO SELIN PATRICIA Start: 07-08-2019 Assay of ammonia Brianna L Schelkun Work Phone: Start: 07-08-2019 Hepatic function panel Brianna L Schelkun Work Phone: Start: 07-08-2019 Glucose blood reagent strip Caro Dibar patricia Work Phone: Start: 07-08-2019 Glucose blood reagent strip CARO DIBAR PATRICIA Start: 07-08-2019 Basic metabolic panel calcium total CARO LOCKEARDINO Start: 07-08-2019 Glucose blood reagent strip Caro Dibar patricia Work Phone: Start: 07-08-2019 ARTERIAL BLOOD GAS, POC CARO DIBARDINO Start: 07-08-2019 Gluc bld gluc mntr dev cleared fda spec home use CARO DIBARDINO Start: 07-08-2019 Potassium serum plasma/whole blood CARO DIBARDINO Start: 07-08-2019 Basic metabolic panel calcium total Caro Lockeardino Work Phone: Start: 07-08-2019 ARTERIAL BLOOD GAS, POC Caro Dibardino Work Phone: Start: 07-08-2019 Gluc bld gluc mntr dev cleared fda spec home use Caro Dibardino Work Phone: Start: 07-08-2019 Potassium [Moles/Vol] Caro Lockeardino Work Phone: Start: 07-08-2019 Glucose blood reagent strip CARO DIBAR PATRICIA Start: 07-08-2019 Radiologic exam abdomen 1 view CARO STOREY Start: 07-08-2019 IP CONSULT TO DIETITIAN CARO TERESA Start: 07-08-2019 ELEVATE HOB CARO CORNELIAARDINO Start: 07-08-2019 STRICT INTAKE AND OUTPUT CARO CORNELIAARDIN O Start: 07-08-2019 Glucose blood reagent strip Caro Dibar patricia Work Phone: Start: 07-08-2019 ARTERIAL BLOOD GAS, POC CARO DIBARDINO Start: 07-08-2019 ABG DRAW CARO DIBARDINO Start: 07-08-2019 Radiologic exam abdomen 1 view Shant abird Work Phone: Start: 07-08-2019 INITIATE OXYGEN THERAPY PROTOCOL CARO CORNELIAARDINO Start: 07-08-2019 Glucose blood reagent strip CARO DIBAR PATRICIA Start: 07-08-2019 ARTERIAL BLOOD GAS, POC Caro Dibardino Work Phone: Start: 07-08-2019 ABG DRAW Brianna Welch Work Phone: Start: 07-08-2019 Ct head/brain w/o contrast material CARO LOCKEARDINO Start: 07-08-2019 Radiologic exam chest single view CARO LOCKEARDINO Start: 07-08-2019 Glucose blood reagent strip Caro Dibar patricia Work Phone: Start: 07-08-2019 Ct head/brain w/o contrast material Xavier Henriquez Work Phone: Start: 07-08-2019 Assay of magnesium CARO DIBARDINO Start: 07-08-2019 Basic metabolic panel calcium total CARO DIBARDINO Start: 07-08-2019 Blood count complete automated CARO DI BARDINO Start: 07-08-2019 Prothrombin time CARO DIBARDINO Start: 07-08-2019 Radiologic exam chest single view Brianna L Schelkun Work Phone: Start: 07-08-2019 Assay of magnesium Caro Dibardino Work Phone: Start: 07-08-2019 Basic metabolic panel calcium total Caro Dibardino Work Phone: Start: 07-08-2019 Blood count complete automated Caro Zhong bardino Work Phone: Start: 07-08-2019 Prothrombin time Caro Dibardino Work Phone: Start: 07-08-2019 INTAKE AND OUTPUT CARO DIBARDINO Start: 07-07-2019 Electroencephalogram w/rec awake&asleep CARO DIBARDINO Start: 07-07-2019 Glucose blood reagent strip CARO DIBAR PATRICIA Start: 07-07-2019 EEG Xavier Henriquez Work Phone: Start: 07-07-2019 Glucose blood reagent strip Caro Dibar patricia Work Phone: Start: 07-07-2019 Comprehensive metabolic panel CARO CORNELIA ARDINO Start: 07-07-2019 Glucose blood reagent strip CARO DIBAR PATRICIA Start: 07-07-2019 ANION GAP (CALC) POC CARO DIBARDINO Start: 07-07-2019 ARTERIAL BLOOD GAS, POC CARO DIBARDINO Start: 07-07-2019 Blood count hemoglobin CARO DIBARDINO Start: 07-07-2019 Calcium ionized CARO DIBARDINO Start: 07-07-2019 Chloride other source CARO DIBARDINO Start: 07-07-2019 CREATININE W/GFR POINT OF CARE CARO DI BARDINO Start: 07-07-2019 Gluc bld gluc mntr dev cleared fda spec home use CARO DIBARDINO Start: 07-07-2019 LACTIC ACID,POINT OF CARE CARO ANNA NO Start: 07-07-2019 Potassium serum plasma/whole blood CARO TERESA Start: 07-07-2019 Sodium serum plasma or whole blood CARO TERESA Start: 07-07-2019 BASIC METABOLIC PANEL W/ REFLEX TO MG FOR LOW K Caro Teresa Work Phone: Start: 07-07-2019 Glucose blood reagent strip Caro Selin patricia Work Phone: Start: 07-07-2019 EXTUBATION CARO TERESA Start: 07-07-2019 ANION GAP (CALC) POC Caro Teresa Work Phone: Start: 07-07-2019 ARTERIAL BLOOD GAS, POC Caro Teresa Work Phone: Start: 07-07-2019 Blood count hemoglobin Caro Teresa Work Phone: Start: 07-07-2019 CALCIUM, IONIC (POC) Caro Teresa Work Phone: Start: 07-07-2019 Chloride [Moles/Vol] Caro Teresa Work Phone: Start: 07-07-2019 CREATININE W/GFR POINT OF CARE Caro Farheen adler Work Phone: Start: 07-07-2019 Gluc bld gluc mntr dev cleared fda spec home use Caro Dibmanuel Work Phone: Start: 07-07-2019 LACTIC ACID,POINT OF CARE Caro Wray no Work Phone: Start: 07-07-2019 Potassium [Moles/Vol] Caro Teresa Work Phone: Start: 07-07-2019 Sodium [Moles/Vol] Caro Teresa Work Phone: Start: 07-07-2019 Ecg routine ecg w/least 12 lds w/i&r CARO TERESA Start: 07-07-2019 EKG REPORT CARO TERESA Start: 07-07-2019 ARTERIAL BLOOD GAS, POC CARO TERESA Start: 07-07-2019 Potassium serum plasma/whole blood CARO TERESA Start: 07-07-2019 EXTUBATION Brianna Welch Work Phone: Start: 07-07-2019 IP CONSULT TO NEUROLOGY CARO TERESA Start: 07-07-2019 Ecg routine ecg w/least 12 lds i&r only Caro Teresa Work Phone: Start: 07-07-2019 EKG REPORT Hpf Scanning Start: 07-07-2019 Glucose blood reagent strip CARO SMALLWOOD PATRICIA Start: 07-07-2019 TRANSFER PATIENT CARO TERESA Start: 07-07-2019 ARTERIAL BLOOD GAS, POC Caro Teresa Work Phone: Start: 07-07-2019 Potassium [Moles/Vol] Caro Teresa Work Phone: Start: 07-07-2019 TRANSFER PATIENT CARO TERESA Start: 07-07-2019 Glucose blood reagent strip Caro farleyo Work Phone: Start: 07-07-2019 Ecg routine ecg w/least 12 lds w/i&r CARO TERESA Start: 07-07-2019 EKG REPORT CARO TERESA Start: 07-07-2019 ARTERIAL BLOOD GAS, POC CARO TERESA Start: 07-07-2019 Calcium ionized CARO WRAYNO Start: 07-07-2019 Gluc bld gluc mntr dev cleared fda spec home use CARO TERESA Start: 07-07-2019 Potassium serum plasma/whole blood CARO TERESA Start: 07-07-2019 INITIATE OXYGEN THERAPY PROTOCOL CARO TERESA Start: 07-07-2019 Echo transthorc r-t 2d w/wo m-mode rec f-up/lmtd CARO WRAYNO Start: 07-07-2019 Ecg routine ecg w/least 12 lds i&r only Caro Teresa Work Phone: Start: 07-07-2019 EKG REPORT Hpf Scanning Start: 07-07-2019 ARTERIAL BLOOD GAS, POC Caro Wrayno Work Phone: Start: 07-07-2019 CALCIUM, IONIC (POC) Caro Lockeardino Work Phone: Start: 07-07-2019 Gluc bld gluc mntr dev cleared fda spec home use Caro Dibardino Work Phone: Start: 07-07-2019 Potassium [Moles/Vol] Caro Lockeardino Work Phone: Start: 07-07-2019 Glucose blood reagent strip CARO DIBAR APTRICIA Start: 07-07-2019 ECHOCARDIOGRAM LIMITED Janusz Stein Work Phone: Start: 07-07-2019 Radiologic exam chest single view CARO DIBARDINO Start: 07-07-2019 Glucose blood reagent strip Caro Dibar patricia Work Phone: Start: 07-07-2019 ARTERIAL BLOOD GAS, POC ACRO DIBARDINO Start: 07-07-2019 Radiologic exam chest single view Vasiliy Garcia Work Phone: Start: 07-07-2019 Ecg routine ecg w/least 12 lds w/i&r CARO LOCKEARDINO Start: 07-07-2019 EKG REPORT CARO CORNELIAARDINO Start: 07-07-2019 Assay of magnesium CARO LOCKEARDINO Start: 07-07-2019 Basic metabolic panel calcium total CARO DIBARDINO Start: 07-07-2019 Blood count complete automated CARO STOREY Start: 07-07-2019 Drug screen quantitative vancomycin CARO LOCKEARDINO Start: 07-07-2019 Prothrombin time CARO DIBARDINO Start: 07-07-2019 ABG DRAW CARO DIBARDINO Start: 07-07-2019 ARTERIAL BLOOD GAS, POC CARO DIBARDINO Start: 07-07-2019 Gluc bld gluc mntr dev cleared fda spec home use CARO DIBARDINO Start: 07-07-2019 ARTERIAL BLOOD GAS, POC Caro Dibardino Work Phone: Start: 07-07-2019 Ecg routine ecg w/least 12 lds trcg only w/o i&r Caro Corneliaardino Work Phone: Start: 07-07-2019 EKG REPORT Hpf Scanning Start: 07-07-2019 Assay of magnesium Caro Dibardino Work Phone: Start: 07-07-2019 Basic metabolic panel calcium total Caro Dibardino Work Phone: Start: 07-07-2019 Blood count complete automated Caro Storey Work Phone: Start: 07-07-2019 Drug screen quantitative vancomycin Caro Teresa Work Phone: Start: 07-07-2019 Prothrombin time Caro Teresa Work Phone: Start: 07-07-2019 End: 07-07-2019 ABG DRAW Brianna Welch Work Phone: Start: 07-07-2019 ARTERIAL BLOOD GAS, POC Crao Teresa Work Phone: Start: 07-07-2019 Gluc bld gluc mntr dev cleared fda spec home use Caro Teresa Work Phone: Start: 07-07-2019 INTAKE AND OUTPUT CARO LOCKETDNO Start: 07-06-2019 ELEVATE HEELS OFF OF BED CARO ILAN Parker Start: 07-06-2019 HEAD OF BED 60 DEGREES OR LESS CARO ZHONG VITOR Start: 07-06-2019 NURSING COMMUNICATION CARO LOCKEMANUEL Start: 07-06-2019 TURN PATIENT CAOR LOCKEMANUEL Start: 07-06-2019 RESTRAINTS NON-VIOLENT OR [id number] CARO DIBMANUEL Start: 07-06-2019 Glucose blood reagent strip CARO LOCKEJAVAD GOMEZ Start: 07-06-2019 POC BLOOD GAS CARO LOCKETDNO Start: 07-06-2019 Ct head/brain w/o contrast material CARO LOCKEMANUEL Start: 07-06-2019 Glucose blood reagent strip Caro Smallwood patricia Work Phone: Start: 07-06-2019 ARTERIAL BLOOD GAS, POC CARO LOCKEARDINO Start: 07-06-2019 Gluc bld gluc mntr dev cleared fda spec home use CARO LOCKEARDINO Start: 07-06-2019 Ecg routine ecg w/least 12 lds w/i&r CARO CORNELIAMANUEL Start: 07-06-2019 EKG REPORT CARO CORNELIAMANUEL Start: 07-06-2019 Ct head/brain w/o contrast material Vasiliy Garcia Work Phone: Start: 07-06-2019 Basic metabolic panel calcium total CARO CORNELIATDNO Start: 07-06-2019 ARTERIAL BLOOD GAS, POC Caro Dibardino Work Phone: Start: 07-06-2019 Gluc bld gluc mntr dev cleared fda spec home use Caro Dibardino Work Phone: Start: 07-06-2019 Ecg routine ecg w/least 12 lds trcg only w/o i&r Nuha Coronel Work Phone: Start: 07-06-2019 EKG REPORT Hpf Scanning Start: 07-06-2019 Basic metabolic panel calcium total Vasiliy A Garcia Work Phone: Start: 07-06-2019 Gluc bld gluc mntr dev cleared fda spec home use CARO DIBARDINO Start: 07-06-2019 ARTERIAL BLOOD GAS, POC CARO DIBARDINO Start: 07-06-2019 Gluc bld gluc mntr dev cleared fda spec home use Caro Dibardino Work Phone: Start: 07-06-2019 ARTERIAL BLOOD GAS, POC CARO DIBARDINO Start: 07-06-2019 End: 07-06-2019 ARTERIAL BLOOD GAS, POC Caro Dibardino Work Phone: Start: 07-06-2019 Ecg routine ecg w/least 12 lds w/i&r CARO LOCKEARDINO Start: 07-06-2019 EKG REPORT CARO WRAYNO Start: 07-06-2019 POC BLOOD GAS CARO DIBARDINO Start: 07-06-2019 INITIATE OXYGEN THERAPY PROTOCOL CARO LOCKEARDINO Start: 07-06-2019 End: 07-06-2019 ARTERIAL BLOOD GAS, POC Caro Dibardino Work Phone: Start: 07-06-2019 Gluc bld gluc mntr dev cleared fda spec home use Caro Dibardino Work Phone: Start: 07-06-2019 Ecg routine ecg w/least 12 lds w/i&r CARO LOCKEARDINO Start: 07-06-2019 Ecg routine ecg w/least 12 lds i&r only Caro Lockeardino Work Phone: Start: 07-06-2019 EKG REPORT Hpf Scanning Start: 07-06-2019 Radiologic exam chest single view CARO LOCKEARDINO Start: 07-06-2019 Ecg routine ecg w/least 12 lds i&r only Nuha Coronel Work Phone: Start: 07-06-2019 EKG REPORT Hpf Scanning Start: 07-06-2019 Assay of magnesium CARO DIBARDINO Start: 07-06-2019 Basic metabolic panel calcium total CARO DIBARDINO Start: 07-06-2019 Blood count complete automated CARO DI BARDINO Start: 07-06-2019 Drug screen quantitative vancomycin CARO DIBARDINO Start: 07-06-2019 Hepatic function panel CARO DIBARDINO Start: 07-06-2019 Prothrombin time CARO DIBARDINO Start: 07-06-2019 ARTERIAL BLOOD GAS, POC CARO DIBARDINO Start: 07-06-2019 Radiologic exam chest single view Shant Pearson Work Phone: Start: 07-06-2019 Assay of magnesium Caro Dibardino Work Phone: Start: 07-06-2019 Basic metabolic panel calcium total Caro Dibardino Work Phone: Start: 07-06-2019 Blood count complete automated Caro Di bardino Work Phone: Start: 07-06-2019 Drug screen quantitative vancomycin Ashley Cesar Work Phone: Start: 07-06-2019 Hepatic function panel Caro Dibardino Work Phone: Start: 07-06-2019 Prothrombin time Caro Dibardino Work Phone: Start: 07-06-2019 ARTERIAL BLOOD GAS, POC Caro Dibardino Work Phone: Start: 07-06-2019 INTAKE AND OUTPUT CARO DIBARDINO Start: 07-05-2019 Us retroperitoneal real time w/image complete CARO DIBARDINO Start: 07-05-2019 Glucose blood reagent strip CARO DIBAR PATRICIA Start: 07-05-2019 Us retroperitoneal real time w/image complete Ashley Cesar Work Phone: Start: 07-05-2019 Glucose blood reagent strip Caro Dibar patricia Work Phone: Start: 07-05-2019 RESTRAINTS NON-VIOLENT OR [id number] CARO DIBARDINO Start: 07-05-2019 Basic metabolic panel calcium total CARO TERESA Start: 07-05-2019 Glucose blood reagent strip CARO GOMEZ Start: 07-05-2019 Basic metabolic panel calcium total Evelio Bansal Work Phone: Start: 07-05-2019 Glucose blood reagent strip Caro gomez Work Phone: Start: 07-05-2019 Assay of urine sodium CARO TERESA Start: 07-05-2019 Chloride urine CARO WRAYNO Start: 07-05-2019 Creatinine other source CARO LOCKEARDINO Start: 07-05-2019 Potassium urine CARO WRAYNO Start: 07-05-2019 Protein electrop fxj&mynor oth flus concentrati CARO TERESA Start: 07-05-2019 Urnls dip stick/tablet reagent auto microscopy CARO TERESA Start: 07-05-2019 Antinuclear antibodies teto CARO MOTA MADI Start: 07-05-2019 Complement antigen each component CARO LOCKEMANUEL Start: 07-05-2019 Immunofixj electrophoresis serum CARO TERESA Start: 07-05-2019 Protein electrophoretic fractj&quantj serum CARO TERESA Start: 07-05-2019 Acute hepatitis panel CARO WRAYMOLLY Start: 07-05-2019 Assay of ammonia CARO WRAYMOLLY Start: 07-05-2019 BL GAS,MIX-RUFINO,EXT Caro Teresa Work Phone: Start: 07-05-2019 Glucose blood reagent strip CARO GOMEZ Start: 07-05-2019 IP CONSULT TO NEPHROLOGY CARO Parker Start: 07-05-2019 Ecg routine ecg w/least 12 lds w/i&r CARO WRAYMOLLY Start: 07-05-2019 EKG REPORT CARO WRAYMOLLY Start: 07-05-2019 Assay of urine sodium Ashley Cesar Work Phone: Start: 07-05-2019 Chloride urine Ashley Cesar Work Phone: Start: 07-05-2019 Creatinine other source Ashley Cesar Work Phone: Start: 07-05-2019 Potassium urine Ashley Cesar Work Phone: Start: 07-05-2019 Protein electrop fxj&mynor oth flus concentrati Ashley Guerrero Work Phone: Start: 07-05-2019 Urnls dip stick/tablet reagent auto microscopy Ashley Guerrero Work Phone: Start: 07-05-2019 Antinuclear antibodies teto Ashleyrcuz Guerrero Work Phone: Start: 07-05-2019 Complement antigen each component Ashley Guerrero Work Phone: Start: 07-05-2019 GENERIC LABORATORY CHARGE Ashley Guerrero Work Phone: Start: 07-05-2019 Protein electrophoretic fractj&quantj serum Ashley Guerrero Work Phone: Start: 07-05-2019 Acute hepatitis panel Ashley Guererro Work Phone: Start: 07-05-2019 Assay of ammonia Shant Pearson Work Phone: Start: 07-05-2019 Glucose blood reagent strip Caro gomez Work Phone: Start: 07-05-2019 Ecg routine ecg w/least 12 lds i&r only Nuha Coronel Work Phone: Start: 07-05-2019 EKG REPORT Hpf Scanning Start: 07-05-2019 INITIATE OXYGEN THERAPY PROTOCOL CARO TERESA Start: 07-05-2019 IP CONSULT TO NEPHROLOGY CARO Parker Start: 07-05-2019 Glucose blood reagent strip CARO GOMEZ Start: 07-05-2019 ANION GAP (CALC) POC CARO TERESA Start: 07-05-2019 ARTERIAL BLOOD GAS, POC CARO TERESA Start: 07-05-2019 Blood count hemoglobin CARO TERESA Start: 07-05-2019 Calcium ionized CARO TERESA Start: 07-05-2019 Chloride other source CARO TERESA Start: 07-05-2019 CREATININE W/GFR POINT OF CARE CARO STOREY Start: 07-05-2019 Gluc bld gluc mntr dev cleared fda spec home use CARO TERESA Start: 07-05-2019 LACTIC ACID,POINT OF CARE CARO SCHROEDER Start: 07-05-2019 Sodium serum plasma or whole blood CARO TERESA Start: 07-05-2019 Radiologic exam chest single view CARO WRAYMOLLY Start: 07-05-2019 Assay of magnesium CARO WRAYMOLLY Start: 07-05-2019 Basic metabolic panel calcium total CARO WRAYNO Start: 07-05-2019 Blood count complete automated CARO STOREY Start: 07-05-2019 Prothrombin time CARO WRAYNO Start: 07-05-2019 ANION GAP (CALC) POC CARO LOCKETDNO Start: 07-05-2019 ARTERIAL BLOOD GAS, POC CARO LOCKETDNO Start: 07-05-2019 Calcium ionized CARO WRAYNO Start: 07-05-2019 Chloride other source CARO TERESA Start: 07-05-2019 CREATININE W/GFR POINT OF CARE CARO ZHONG VITOR Start: 07-05-2019 LACTIC ACID,POINT OF CARE CARO LOCKETD NO Start: 07-05-2019 Potassium serum plasma/whole blood CARO LOCKETDNO Start: 07-05-2019 Sodium serum plasma or whole blood CARO LOCKETDNO Start: 07-05-2019 Glucose blood reagent strip Caro Smallwood patricia Work Phone: Start: 07-05-2019 ANION GAP (CALC) POC Caro Wrayno Work Phone: Start: 07-05-2019 ARTERIAL BLOOD GAS, POC Caro Wrayno Work Phone: Start: 07-05-2019 Blood count hemoglobin Caro Teresa Work Phone: Start: 07-05-2019 CALCIUM, IONIC (POC) Caro Locketdno Work Phone: Start: 07-05-2019 Chloride [Moles/Vol] Caro Locketdno Work Phone: Start: 07-05-2019 CREATININE W/GFR POINT OF CARE Caro Zhong vitor Work Phone: Start: 07-05-2019 Gluc bld gluc mntr dev cleared fda spec home use Caro Wraymolly Work Phone: Start: 07-05-2019 LACTIC ACID,POINT OF CARE Caro Lockeardi no Work Phone: Start: 07-05-2019 Potassium [Moles/Vol] Caro Teresa Work Phone: Start: 07-05-2019 Sodium [Moles/Vol] Caro Teresa Work Phone: Start: 07-05-2019 Radiologic exam chest single view Shant Pearson Work Phone: Start: 07-05-2019 Assay of magnesium Caro Teresa Work Phone: Start: 07-05-2019 Basic metabolic panel calcium total Caro Teresa Work Phone: Start: 07-05-2019 Blood count complete automated Caro Storey Work Phone: Start: 07-05-2019 Prothrombin time Caro Teresa Work Phone: Start: 07-05-2019 ANION GAP (CALC) POC Caro Teresa Work Phone: Start: 07-05-2019 ARTERIAL BLOOD GAS, POC Caro Teresa Work Phone: Start: 07-05-2019 Blood count hemoglobin Caro Teresa Work Phone: Start: 07-05-2019 CALCIUM, IONIC (POC) Caro Teresa Work Phone: Start: 07-05-2019 Chloride [Moles/Vol] Caro Teresa Work Phone: Start: 07-05-2019 CREATININE W/GFR POINT OF CARE Caro Storey Work Phone: Start: 07-05-2019 Gluc bld gluc mntr dev cleared fda spec home use Caro Teresa Work Phone: Start: 07-05-2019 LACTIC ACID,POINT OF CARE Caro schroeder Work Phone: Start: 07-05-2019 Potassium [Moles/Vol] Caro Wrayno Work Phone: Start: 07-05-2019 Sodium [Moles/Vol] Caro Wrayno Work Phone: Start: 07-05-2019 Blood gases any combination ph pco2 po2 co2 hco3 CARO DIBMANUEL Start: 07-05-2019 INTAKE AND OUTPUT CARO DIBARDINO Start: 07-05-2019 PATIENT MAY SHOWER CARO LOCEKARDINO Start: 07-05-2019 Glucose blood reagent strip CARO DIBAR PATRICIA Start: 07-05-2019 TRANSFER PATIENT CARO LOCKEARDINO Start: 07-05-2019 Glucose blood reagent strip Caro Dibar patricia Work Phone: Start: 07-04-2019 End: 07-05-2019 Potassium serum plasma/whole blood Caro Dibardino Work Phone: Start: 07-04-2019 Assay of magnesium CARO DIBARDINO Start: 07-04-2019 Glucose blood reagent strip Caro Dibar patricia Work Phone: Start: 07-04-2019 Assay of magnesium Caro Dibardino Work Phone: Start: 07-04-2019 Glucose blood reagent strip Caro Dibar patricia Work Phone: Start: 07-04-2019 RESTRAINTS NON-VIOLENT OR [id number] CARO LOCKEARDINO Start: 07-04-2019 Glucose blood reagent strip Caro Dibar patricia Work Phone: Start: 07-04-2019 Antibody alejandro-hughes eb virus nuclear ag ebna CARO DIBARDINO Start: 07-04-2019 Assay of lactate CARO DIBARDINO Start: 07-04-2019 Assay of magnesium CARO DIBARDINO Start: 07-04-2019 Basic metabolic panel calcium total CARO DIBARDINO Start: 07-04-2019 Calcium ionized CARO DIBARDINO Start: 07-04-2019 HEMOGLOBIN AND HEMATOCRIT, BLOOD CARO DIBARDINO Start: 07-04-2019 Glucose blood reagent strip CARO DIBAR PATRICIA Start: 07-04-2019 Assay of lactate Caro Dibardino Work Phone: Start: 07-04-2019 Assay of magnesium Caro Dibardino Work Phone: Start: 07-04-2019 Basic metabolic panel calcium total Caro Dibardino Work Phone: Start: 07-04-2019 Blood count hemoglobin Caro Dibardino Work Phone: Start: 07-04-2019 Calcium ionized Caro Dibardino Work Phone: Start: 07-04-2019 OPEN HEART COAG Caro Lockeardino Work Phone: Start: 07-04-2019 Glucose blood reagent strip Caro Lockear patricia Work Phone: Start: 07-04-2019 Glucose blood reagent strip Caro Lockear patricia Work Phone: Start: 07-04-2019 Radiologic exam chest single view CARO DIBARDINO Start: 07-04-2019 Antibody alejandro-hughes eb virus nuclear ag ebna CARO LOCKEARDINO Start: 07-04-2019 Assay of lactate CARO DIBARDINO Start: 07-04-2019 Assay of magnesium CARO DIBARDINO Start: 07-04-2019 Basic metabolic panel calcium total CARO DIBARDINO Start: 07-04-2019 Blood count complete automated CARO ESTEVEZINO Start: 07-04-2019 ANION GAP (CALC) POC CARO DIBARDINO Start: 07-04-2019 ARTERIAL BLOOD GAS, POC CARO DIBARDINO Start: 07-04-2019 Blood count hemoglobin CARO LOCKEARDINO Start: 07-04-2019 Calcium ionized CARO DIBARDINO Start: 07-04-2019 Chloride other source CARO LOCKEARDINO Start: 07-04-2019 CREATININE W/GFR POINT OF CARE CARO FARHEEN INO Start: 07-04-2019 Gluc bld gluc mntr dev cleared fda spec home use CARO LOCKEARDINO Start: 07-04-2019 LACTIC ACID,POINT OF CARE CARO LOCKEARDI NO Start: 07-04-2019 Sodium serum plasma or whole blood CARO DIBARDINO Start: 07-04-2019 TRANSFER PATIENT CARO LOCKEARDINO Start: 07-04-2019 Radiologic exam chest single view Caro Lockeardino Work Phone: Start: 07-04-2019 INITIATE OXYGEN THERAPY PROTOCOL CARO ANNANO Start: 07-04-2019 Assay of lactate Caro Dibardino Work Phone: Start: 07-04-2019 Assay of magnesium Caro Dibardino Work Phone: Start: 07-04-2019 Basic metabolic panel calcium total Caro Dibardino Work Phone: Start: 07-04-2019 Blood count complete automated Caro Estevezmadi Work Phone: Start: 07-04-2019 Calcium ionized Caro Lockemanuel Work Phone: Start: 07-04-2019 OPEN HEART COAG Carochanell Teresa Work Phone: Start: 07-04-2019 ANION GAP (CALC) POC Caro Wrayno Work Phone: Start: 07-04-2019 ARTERIAL BLOOD GAS, POC Caro Teresa Work Phone: Start: 07-04-2019 Blood count hemoglobin Carochanell Teresa Work Phone: Start: 07-04-2019 CALCIUM, IONIC (POC) Caro Teresa Work Phone: Start: 07-04-2019 Chloride [Moles/Vol] Caro Teresa Work Phone: Start: 07-04-2019 CREATININE W/GFR POINT OF CARE Caro Farheen adler Work Phone: Start: 07-04-2019 Gluc bld gluc mntr dev cleared fda spec home use Carochanell Teresa Work Phone: Start: 07-04-2019 LACTIC ACID,POINT OF CARE Carochanell schroeder Work Phone: Start: 07-04-2019 Potassium [Moles/Vol] Caro Teresa Work Phone: Start: 07-04-2019 Sodium [Moles/Vol] Caro Teresa Work Phone: Start: 07-04-2019 Transfusion blood/blood components CARO TERESA Start: 07-04-2019 TRANSFUSE PLATELETS CARO TERESA Start: 07-04-2019 Radiologic exam chest single view CARO TERESA Start: 07-04-2019 Transfusion blood/blood components CARO TERESA Start: 07-04-2019 Glucose blood reagent strip CARO GOMEZ Start: 07-04-2019 End: 07-04-2019 Secondary closure surg wound/dehsn extsv/complic Caro Teresa Work Phone: Start: 07-04-2019 Assay of magnesium CARO WRAYNO Start: 07-04-2019 Basic metabolic panel calcium total CARO WRAYNO Start: 07-04-2019 Blood count complete automated CARO STOREY Start: 07-04-2019 Prothrombin time CARO WRAYNO Start: 07-04-2019 TRANSFUSE PLATELETS Caro Wrayno Work Phone: Start: 07-04-2019 ANION GAP (CALC) POC CARO LOCKEARDINO Start: 07-04-2019 ARTERIAL BLOOD GAS, POC CARO LOCKEARDINO Start: 07-04-2019 Blood count hemoglobin CARO WRAYNO Start: 07-04-2019 Calcium ionized CARO WRAYNO Start: 07-04-2019 Chloride other source CARO WRAYNO Start: 07-04-2019 CREATININE W/GFR POINT OF CARE CARO ESTEVEZINO Start: 07-04-2019 Gluc bld gluc mntr dev cleared fda spec home use CARO WRAYNO Start: 07-04-2019 LACTIC ACID,POINT OF CARE CARO WRAY NO Start: 07-04-2019 Sodium serum plasma or whole blood CAOR WRAYNO Start: 07-04-2019 Radiologic exam chest single view Caro Teresa Work Phone: Start: 07-04-2019 TRANSFUSE FRESH FROZEN PLASMA CARO FARNSWORTHPATRICIA Start: 07-04-2019 PREPARE PLATELETS Caro Teresa Work Phone: Start: 07-04-2019 Glucose blood reagent strip Caro Smallwood patricia Work Phone: Start: 07-04-2019 End: 07-05-2019 Assay of magnesium Caro Teresa Work Phone: Start: 07-04-2019 Basic metabolic panel calcium total Caro Wrayno Work Phone: Start: 07-04-2019 Blood count complete automated Caro Storey Work Phone: Start: 07-04-2019 Prothrombin time Caro Wrayno Work Phone: Start: 07-04-2019 ANION GAP (CALC) POC Caro Lockeardino Work Phone: Start: 07-04-2019 ARTERIAL BLOOD GAS, POC Caro Lockeardino Work Phone: Start: 07-04-2019 Blood count hemoglobin Caro Locketdno Work Phone: Start: 07-04-2019 CALCIUM, IONIC (POC) Caro Wrayno Work Phone: Start: 07-04-2019 Chloride [Moles/Vol] Carochanell Wrayno Work Phone: Start: 07-04-2019 CREATININE W/GFR POINT OF CARE Caro Farheen adler Work Phone: Start: 07-04-2019 Gluc bld gluc mntr dev cleared fda spec home use Carochanell Teresa Work Phone: Start: 07-04-2019 Glucose blood reagent strip Carochanell Smallwood patricia Work Phone: Start: 07-04-2019 LACTIC ACID,POINT OF CARE Caro Wray no Work Phone: Start: 07-04-2019 Potassium [Moles/Vol] Caro Wrayno Work Phone: Start: 07-04-2019 Sodium [Moles/Vol] Caro Wrayno Work Phone: Start: 07-04-2019 ANION GAP (CALC) POC CARO TERESA Start: 07-04-2019 ARTERIAL BLOOD GAS, POC CARO WRAYNO Start: 07-04-2019 Calcium ionized CARO WRAYNO Start: 07-04-2019 Chloride other source CARO TERESA Start: 07-04-2019 CREATININE W/GFR POINT OF CARE CARO STOREY Start: 07-04-2019 LACTIC ACID,POINT OF CARE CARO LOCKEARDI NO Start: 07-04-2019 Sodium serum plasma or whole blood CARO WRAYNO Start: 07-04-2019 TRANSFUSE FRESH FROZEN PLASMA Caro jackson Work Phone: Start: 07-04-2019 Glucose blood reagent strip CARO SMALLWOOD PATRICIA Start: 07-04-2019 ANION GAP (CALC) POC Caro Wrayno Work Phone: Start: 07-04-2019 ARTERIAL BLOOD GAS, POC Caro Wrayno Work Phone: Start: 07-04-2019 Blood count hemoglobin Caro Lockemanuel Work Phone: Start: 07-04-2019 CALCIUM, IONIC (POC) Caro Lockemanuel Work Phone: Start: 07-04-2019 Chloride [Moles/Vol] Caro Lockemanuel Work Phone: Start: 07-04-2019 CREATININE W/GFR POINT OF CARE Caro Farheen adler Work Phone: Start: 07-04-2019 Gluc bld gluc mntr dev cleared fda spec home use Caro Lockemanuel Work Phone: Start: 07-04-2019 LACTIC ACID,POINT OF CARE Caro Anna schroeder Work Phone: Start: 07-04-2019 Potassium [Moles/Vol] Caro Teresa Work Phone: Start: 07-04-2019 Sodium [Moles/Vol] Caro Teresa Work Phone: Start: 07-04-2019 NEURO/VASCULAR CHECKS CARO TERESA Start: 07-04-2019 NURSING COMMUNICATION CARO TERESA Start: 07-04-2019 AMBULATE PATIENT CARO TERESA Start: 07-04-2019 DAILY WEIGHTS CARO TERESA Start: 07-04-2019 INTAKE AND OUTPUT CARO TERESA Start: 07-04-2019 MUST BE UP FOR MEALS CARO TERESA Start: 07-04-2019 Antibody alejandro-hughes eb virus nuclear ag ebna CARO TERESA Start: 07-04-2019 Ecg routine ecg w/least 12 lds w/i&r CARO TERESA Start: 07-04-2019 EKG REPORT CARO TERESA Start: 07-04-2019 Blood gases any combination ph pco2 po2 co2 hco3 CARO TERESA Start: 07-04-2019 Glucose blood reagent strip Caro gomez Work Phone: Start: 07-04-2019 Assay of lactate CARO TERESA Start: 07-04-2019 Assay of magnesium CARO TERESA Start: 07-04-2019 Basic metabolic panel calcium total CARO TERESA Start: 07-04-2019 Blood count complete auto&auto difrntl wbc CARO WRAYMOLLY Start: 07-04-2019 Fibrinogen activity CARO WRAYOMLLY Start: 07-04-2019 Hepatic function panel CARO LOCKEMANUEL Start: 07-04-2019 Prothrombin time CARO WRAYMOLLY Start: 07-04-2019 TRANSFUSE FRESH FROZEN PLASMA CARO LYNCHElena Start: 07-04-2019 ANION GAP (CALC) POC CARO LOCKEMANUEL Start: 07-04-2019 ARTERIAL BLOOD GAS, POC CARO LOCKEMANUEL Start: 07-04-2019 Blood count hemoglobin CARO LOCKEMANUEL Start: 07-04-2019 Calcium ionized CARO LOCKEMANUEL Start: 07-04-2019 Chloride other source CARO LOCKEMANUEL Start: 07-04-2019 CREATININE W/GFR POINT OF CARE CARO STOREY Start: 07-04-2019 Gluc bld gluc mntr dev cleared fda spec home use CARO LOCKEMANUEL Start: 07-04-2019 LACTIC ACID,POINT OF CARE CARO LOCKETD NO Start: 07-04-2019 Potassium serum plasma/whole blood CARO DIBMANUEL Start: 07-04-2019 Sodium serum plasma or whole blood CARO LOCKEMANUEL Start: 07-04-2019 Ecg routine ecg w/least 12 lds w/i&r CARO LOCKEMANUEL Start: 07-04-2019 TRANSFER PATIENT CARO LOCKEMANUEL Start: 07-04-2019 TRANSFUSE PLATELETS CARO DIBMANUEL Start: 07-04-2019 Transfusion blood/blood components CARO LOCKEMANUEL Start: 07-04-2019 Glucose blood reagent strip Caro gomez Work Phone: Start: 07-04-2019 OPEN HEART COAG Caro Teresa Work Phone: Start: 07-03-2019 Ecg routine ecg w/least 12 lds i&r only Caro Teresa Work Phone: Start: 07-04-2019 EKG REPORT Hpf Scanning Start: 07-03-2019 Antibody alejandro-hughes eb virus nuclear ag ebna CARO TERESA Start: 07-03-2019 Blood count complete automated CARO STOREY Start: 07-03-2019 Reticulated platelet assay CARO BARRAZA Start: 07-03-2019 BL GAS,MIX-RUFINO,EXT Caro Teresa Work Phone: Start: 07-03-2019 Assay of lactate Caro Teresa Work Phone: Start: 07-03-2019 Assay of magnesium Caro Teresa Work Phone: Start: 07-03-2019 Basic metabolic panel calcium total Caro Teresa Work Phone: Start: 07-03-2019 Blood count complete auto&auto difrntl wbc Caro Teresa Work Phone: Start: 07-03-2019 Calcium ionized Caro Teresa Work Phone: Start: 07-03-2019 Fibrinogen activity Caro Teresa Work Phone: Start: 07-03-2019 Hepatic function panel Caro Teresa Work Phone: Start: 07-03-2019 Prothrombin time Caro Teresa Work Phone: Start: 07-03-2019 TRANSFUSE FRESH FROZEN PLASMA Dominguez Satnam fishercarlos eduardo Work Phone: Start: 07-03-2019 ANION GAP (CALC) POC Caro Teresa Work Phone: Start: 07-03-2019 ARTERIAL BLOOD GAS, POC Caro eTresa Work Phone: Start: 07-03-2019 Blood count hemoglobin Caro Teresa Work Phone: Start: 07-03-2019 CALCIUM, IONIC (POC) Caro Teresa Work Phone: Start: 07-03-2019 Chloride [Moles/Vol] Caro Wrayno Work Phone: Start: 07-03-2019 CREATININE W/GFR POINT OF CARE Caro Farheen adler Work Phone: Start: 07-03-2019 Gluc bld gluc mntr dev cleared fda spec home use Caro Wraymolly Work Phone: Start: 07-03-2019 LACTIC ACID,POINT OF CARE Caro Locketd schroeder Work Phone: Start: 07-03-2019 Potassium [Moles/Vol] Caro Wraymolly Work Phone: Start: 07-03-2019 Sodium [Moles/Vol] Caro Wrayno Work Phone: Start: 07-03-2019 POC KAOLIN TEG CARO WRAYNO Start: 07-03-2019 POC KAOLIN TEG WITH HEPARIN CARO FARLEYO Start: 07-03-2019 Ecg routine ecg w/least 12 lds i&r only Caro Wraymolly Work Phone: Start: 07-03-2019 EKG REPORT Hpf Scanning Start: 07-03-2019 ANION GAP (CALC) POC CARO WRAYMOLLY Start: 07-03-2019 ARTERIAL BLOOD GAS, POC CARO LOCKEMANUEL Start: 07-03-2019 Chloride other source CARO LOCKEMANUEL Start: 07-03-2019 CREATININE W/GFR POINT OF CARE CARO ZHONG VITOR Start: 07-03-2019 LACTIC ACID,POINT OF CARE CARO LOCKETD NO Start: 07-03-2019 Potassium serum plasma/whole blood CARO LOCKEMANUEL Start: 07-03-2019 Sodium serum plasma or whole blood CARO WRAYMOLLY Start: 07-03-2019 Radiologic exam chest single view CARO WRAYMOLLY Start: 07-03-2019 TRANSFUSE PLATELETS Caro Wraymolly Work Phone: Start: 07-03-2019 End: 07-03-2019 Glucose blood reagent strip Caro gomez Work Phone: Start: 07-03-2019 Level iv surg pathology gross&microscopic exam CARO LOCKEMANUEL Start: 07-03-2019 End: 07-03-2019 PREPARE FRESH FROZEN PLASMA Caro farleyo Work Phone: Start: 07-03-2019 PREPARE PLATELETS Caro Lockemanuel Work Phone: Start: 07-03-2019 Blood count hemoglobin CARO LOCKEMANUEL Start: 07-03-2019 Gluc bld gluc mntr dev cleared fda spec home use CARO WRAYNO Start: 07-03-2019 Assay of magnesium Caro Lockemanuel Work Phone: Start: 07-03-2019 Basic metabolic panel calcium total Caro Lockemanuel Work Phone: Start: 07-03-2019 Blood count complete automated Caro Farheen adler Work Phone: Start: 07-03-2019 Calcium ionized Caro Lockeardino Work Phone: Start: 07-03-2019 IMMATURE PLATELET FRACTION Caro Lockeellyn madi Work Phone: Start: 07-03-2019 OPEN HEART COAG Caro Wrayno Work Phone: Start: 07-03-2019 ANION GAP (CALC) POC CARO LOCKEARDINO Start: 07-03-2019 ARTERIAL BLOOD GAS, POC CARO CORNELIAARDINO Start: 07-03-2019 Chloride other source CARO WRAYNO Start: 07-03-2019 CREATININE W/GFR POINT OF CARE CARO ESTEVEZINO Start: 07-03-2019 LACTIC ACID,POINT OF CARE CARO ANNA NO Start: 07-03-2019 Potassium serum plasma/whole blood CARO LOCKEARDINO Start: 07-03-2019 Sodium serum plasma or whole blood CARO LOCKEARDINO Start: 07-03-2019 End: 07-03-2019 POC KAOLIN TEG Caro Teresa Work Phone: Start: 07-03-2019 End: 07-03-2019 POC KAOLIN TEG WITH HEPARIN Caro Selin gomez Work Phone: Start: 07-03-2019 Transfusion blood/blood components CARO WRAYNO Start: 07-03-2019 End: 07-03-2019 ANION GAP (CALC) POC Caro Corneliaardino Work Phone: Start: 07-03-2019 End: 07-03-2019 ARTERIAL BLOOD GAS, POC Acro Dibardino Work Phone: Start: 07-03-2019 End: 07-03-2019 Blood count hemoglobin Caro Corneliaardino Work Phone: Start: 07-03-2019 End: 07-03-2019 CALCIUM, IONIC (POC) Caro Lockeardino Work Phone: Start: 07-03-2019 End: 07-03-2019 Chloride [Moles/Vol] Caro Lockeardino Work Phone: Start: 07-03-2019 End: 07-03-2019 CREATININE W/GFR POINT OF CARE Caro Storey Work Phone: Start: 07-03-2019 End: 07-03-2019 Gluc bld gluc mntr dev cleared fda spec home use Caro Malick Work Phone: Start: 07-03-2019 End: 07-03-2019 LACTIC ACID,POINT OF CARE Caro Wray no Work Phone: Start: 07-03-2019 End: 07-03-2019 Potassium [Moles/Vol] Caro Teresa Work Phone: Start: 07-03-2019 End: 07-03-2019 Sodium [Moles/Vol] Caro Teresa Work Phone: Start: 07-03-2019 Radiologic exam chest single view Caro Teresa Work Phone: Start: 07-03-2019 Ecg routine ecg w/least 12 lds w/i&r CARO TERESA Start: 07-03-2019 EKG REPORT CARO TERESA Start: 07-03-2019 TRANSFUSE RED BLOOD CELLS CARO SCHROEDER Start: 07-03-2019 PREPARE RBC (CROSSMATCH) CARO Parker Start: 07-03-2019 TRANSFUSION REACTION MANAGEMENT CARO GILL Start: 07-03-2019 VERIFY INFORMED CONSENT CARO TERESA Start: 07-03-2019 Assay of magnesium CARO TERESA Start: 07-03-2019 Basic metabolic panel calcium total CARO TERESA Start: 07-03-2019 Blood count platelet automated CARO STOREY Start: 07-03-2019 Fibrinogen activity CARO TERESA Start: 07-03-2019 Prothrombin time CARO TERESA Start: 07-03-2019 Thromboplastin time partial plasma/whole blood CARO TERESA Start: 07-03-2019 ANION GAP (CALC) POC CARO TERESA Start: 07-03-2019 ARTERIAL BLOOD GAS, POC CARO TERESA Start: 07-03-2019 Calcium ionized CARO TERESA Start: 07-03-2019 Chloride other source CARO TERESA Start: 07-03-2019 Potassium serum plasma/whole blood CARO TERESA Start: 07-03-2019 Sodium serum plasma or whole blood CARO TERESA Start: 07-03-2019 End: 07-03-2019 TRANSFUSE RED BLOOD CELLS Caro Anna schroeder Work Phone: Start: 07-03-2019 End: 07-03-2019 ANION GAP (CALC) POC Caro Teresa Work Phone: Start: 07-03-2019 End: 07-03-2019 ARTERIAL BLOOD GAS, POC Caro Teresa Work Phone: Start: 07-03-2019 End: 07-03-2019 Blood count hemoglobin Caro Teresa Work Phone: Start: 07-03-2019 End: 07-03-2019 CALCIUM, IONIC (POC) Caro Teresa Work Phone: Start: 07-03-2019 End: 07-03-2019 Chloride [Moles/Vol] Caro Teresa Work Phone: Start: 07-03-2019 End: 07-03-2019 CREATININE W/GFR POINT OF CARE Caro Farheen adler Work Phone: Start: 07-03-2019 End: 07-03-2019 Gluc bld gluc mntr dev cleared fda spec home use Caro Teresa Work Phone: Start: 07-03-2019 End: 07-03-2019 LACTIC ACID,POINT OF CARE Caro schroeder Work Phone: Start: 07-03-2019 End: 07-03-2019 Potassium [Moles/Vol] Caro Teresa Work Phone: Start: 07-03-2019 End: 07-03-2019 Sodium [Moles/Vol] Caro Teresa Work Phone: Start: 07-03-2019 Blood gases any combination ph pco2 po2 co2 hco3 CARO TERESA Start: 07-03-2019 CTS HEMODYNAMIC GOALS CARO TERESA Start: 07-03-2019 IP CONSULT TO CARDIAC REHAB CARO GOMEZ Start: 07-03-2019 IP CONSULT TO CASE MANAGEMENT CARO JACKSON Start: 07-03-2019 IP CONSULT TO DIETITIAN CARO TERESA Start: 07-03-2019 IP CONSULT TO SPIRITUAL SERVICES CARO TERESA Start: 07-03-2019 PLACE INTERMITTENT PNEUMATIC COMPRESSION DEVICE CARO TERESA Start: 07-03-2019 REMOVE AND REPLACE ANGELY HOSE DAILY CARO TERESA Start: 07-03-2019 ENCOURAGE DEEP BREATHING AND COUGHING CARO TERESA Start: 07-03-2019 IP CONSULT TO CARDIOLOGY CARO Parker Start: 07-03-2019 OT EVAL AND TREAT CARO TERESA Start: 07-03-2019 PT EVAL AND TREAT CARO TERESA Start: 07-03-2019 APPLY WARMING BLANKET CARO TERESA Start: 07-03-2019 CARDIAC STERNAL PRECAUTION CARO MOTA MADI Start: 07-03-2019 ELEVATE HOB CARO TERESA Start: 07-03-2019 INITIATE OXYGEN THERAPY PROTOCOL CARO TERESA Start: 07-03-2019 NASOGASTRIC TUBE MAINTENANCE CARO FARNSWORTH RDMADI Start: 07-03-2019 NURSING COMMUNICATION CARO TERESA Start: 07-03-2019 WOUND CARE CARO TERESA Start: 07-03-2019 FULL CODE CARO TERESA Start: 07-03-2019 INTAKE AND OUTPUT CARO TERESA Start: 07-03-2019 MISCELLANEOUS NURSING CARE ORDER (SPECIFY) CARO TERESA Start: 07-03-2019 NOTIFY PHYSICIAN (SPECIFY) CARO MOTA MADI Start: 07-03-2019 TELEMETRY MONITORING CARO TERESA Start: 07-03-2019 UP IN CHAIR CARO TERESA Start: 07-03-2019 POC KAOLIN TEG CARO LOCKEARDINO Start: 07-03-2019 POC KAOLIN TEG WITH HEPARIN CARO LOCKEAR PATRICIA Start: 07-03-2019 ARTERIAL BLOOD GAS, POC CARO DIBARDINO Start: 07-03-2019 Sodium serum plasma or whole blood CARO LOCKEARDINO Start: 07-03-2019 Ecg routine ecg w/least 12 lds i&r only Vasiliy Garcia Work Phone: Start: 07-03-2019 EKG REPORT Hpf Scanning Start: 07-03-2019 End: 07-03-2019 CABG CORONARY ARTERY BYPASS AORTIC AND MITRAL VALVE REP REDO Caro Teresa Work Phone: Start: 07-03-2019 End: 07-03-2019 TRANSFUSE RED BLOOD CELLS Caro Anna no Work Phone: Start: 07-03-2019 TRANSFUSE RED BLOOD CELLS CARO ANNA NO Start: 07-03-2019 Assay of magnesium Vasiliy Garcia Work Phone: Start: 07-03-2019 Basic metabolic panel calcium total Dominguez Plummer Work Phone: Start: 07-03-2019 Blood count platelet automated Vasiliy Garcia Work Phone: Start: 07-03-2019 Calcium ionized Caro Locketdno Work Phone: Start: 07-03-2019 Fibrinogen activity Vasiliy Garcia Work Phone: Start: 07-03-2019 Prothrombin time Dominguez Plummer Work Phone: Start: 07-03-2019 Thromboplastin time partial plasma/whole blood Vasiliy Garcia Work Phone: Start: 07-03-2019 ANION GAP (CALC) POC Caro Corneliaardino Work Phone: Start: 07-03-2019 ARTERIAL BLOOD GAS, POC Caro Dibardino Work Phone: Start: 07-03-2019 Blood count hemoglobin Caro Lockeardino Work Phone: Start: 07-03-2019 CALCIUM, IONIC (POC) Caro Lockeardino Work Phone: Start: 07-03-2019 Chloride [Moles/Vol] Caro Lockeardino Work Phone: Start: 07-03-2019 Gluc bld gluc mntr dev cleared fda spec home use Caro Lockeardino Work Phone: Start: 07-03-2019 Potassium [Moles/Vol] Caro Dibardino Work Phone: Start: 07-03-2019 Sodium [Moles/Vol] Caro Dibardino Work Phone: Start: 07-03-2019 PREPARE RBC (CROSSMATCH) CARO WRAYN O Start: 07-03-2019 Radiologic exam chest single view Vasiliy Garcia Work Phone: Start: 07-03-2019 Potassium serum plasma/whole blood CARO TERESA Start: 07-03-2019 Level iv surg pathology gross&microscopic exam CARO TERESA Start: 07-03-2019 POC KAOLIN TEG Caro Teresa Work Phone: Start: 07-03-2019 POC KAOLIN TEG WITH HEPARIN Caro Selin gomez Work Phone: Start: 07-03-2019 ARTERIAL BLOOD GAS, POC CARO TERESA Start: 07-03-2019 Calcium ionized CARO LOCKEARDINO Start: 07-03-2019 Potassium serum plasma/whole blood CARO LOCKEARDINO Start: 07-03-2019 Sodium serum plasma or whole blood CARO LOCKEARDINO Start: 07-03-2019 PREPARE RBC (CROSSMATCH) CARO Parker Start: 07-03-2019 TRANSFUSE RED BLOOD CELLS Caro Wray no Work Phone: Start: 07-03-2019 End: 07-03-2019 ARTERIAL BLOOD GAS, POC Caro Teresa Work Phone: Start: 07-03-2019 End: 07-03-2019 Blood count hemoglobin Caro Teresa Work Phone: Start: 07-03-2019 End: 07-03-2019 CALCIUM, IONIC (POC) Caro Wrayno Work Phone: Start: 07-03-2019 End: 07-03-2019 Gluc bld gluc mntr dev cleared fda spec home use Caro Wrayno Work Phone: Start: 07-03-2019 End: 07-03-2019 Potassium [Moles/Vol] Caro Lockeardino Work Phone: Start: 07-03-2019 End: 07-03-2019 Sodium [Moles/Vol] Caro Lockeardino Work Phone: Start: 07-03-2019 TRANSFUSE RED BLOOD CELLS CARO WRAY NO Start: 07-03-2019 ARTERIAL BLOOD GAS, POC CARO TERESA Start: 07-03-2019 Calcium ionized CARO DIBARDINO Start: 07-03-2019 Potassium serum plasma/whole blood CARO DIBARDINO Start: 07-03-2019 Sodium serum plasma or whole blood CRAO DIBARDINO Start: 07-03-2019 End: 07-03-2019 ARTERIAL BLOOD GAS, POC Caro Lockeardino Work Phone: Start: 07-03-2019 End: 07-03-2019 Blood count hemoglobin Caro Wrayno Work Phone: Start: 07-03-2019 End: 07-03-2019 CALCIUM, IONIC (POC) Caro Lockeardino Work Phone: Start: 07-03-2019 End: 07-03-2019 Gluc bld gluc mntr dev cleared fda spec home use Caro Wrayno Work Phone: Start: 07-03-2019 End: 07-03-2019 Potassium [Moles/Vol] Caro Lockeardino Work Phone: Start: 07-03-2019 End: 07-03-2019 Sodium [Moles/Vol] Caro Lockeardino Work Phone: Start: 07-03-2019 MIXED VENOUS GAS, POINT OF CARE CARO GILL Start: 07-03-2019 Culture bacterial quanttative colony count urine CARO TERESA Start: 07-03-2019 POC KAOLIN TEG CARO WRAYNO Start: 07-03-2019 POC KAOLIN TEG WITH HEPARIN CARO GOMEZ Start: 07-03-2019 ARTERIAL BLOOD GAS, POC CARO WRAYNO Start: 07-03-2019 Calcium ionized CARO LOCKEARDINO Start: 07-03-2019 Potassium serum plasma/whole blood CARO LOCKEARDINO Start: 07-03-2019 Sodium serum plasma or whole blood CARO LOCKEARDINO Start: 07-03-2019 End: 07-03-2019 TRANSFUSE RED BLOOD CELLS Caro Wray no Work Phone: Start: 07-03-2019 Transfusion blood/blood components CARO TREESA Start: 07-03-2019 End: 07-03-2019 ARTERIAL BLOOD GAS, POC Caro Teresa Work Phone: Start: 07-03-2019 End: 07-03-2019 Blood count hemoglobin Caro Teresa Work Phone: Start: 07-03-2019 End: 07-03-2019 CALCIUM, IONIC (POC) Caro Locketdno Work Phone: Start: 07-03-2019 End: 07-03-2019 Gluc bld gluc mntr dev cleared fda spec home use Caro Wraymolly Work Phone: Start: 07-03-2019 End: 07-03-2019 Potassium [Moles/Vol] Caro Lockemanuel Work Phone: Start: 07-03-2019 Sodium [Moles/Vol] Caro Lockemanuel Work Phone: Start: 07-03-2019 MIXED VENOUS GAS, POINT OF CARE Caro gill Work Phone: Start: 07-03-2019 Culture bacterial quanttative colony count urine Caro Lockemanuel Work Phone: Start: 07-03-2019 POC KAOLIN TEG Caro Lockemanuel Work Phone: Start: 07-03-2019 POC KAOLIN TEG WITH HEPARIN Caro Lockejavad gomez Work Phone: Start: 07-03-2019 ARTERIAL BLOOD GAS, POC Caro Lockemanuel Work Phone: Start: 07-03-2019 End: 07-03-2019 Blood count hemoglobin Caro Lockemanuel Work Phone: Start: 07-03-2019 CALCIUM, IONIC (POC) Caro Dibmanuel Work Phone: Start: 07-03-2019 End: 07-03-2019 Gluc bld gluc mntr dev cleared fda spec home use aCro Lockemanuel Work Phone: Start: 07-03-2019 Potassium [Moles/Vol] Caro Corneliatdno Work Phone: Start: 07-03-2019 Sodium [Moles/Vol] Caor Dibtdno Work Phone: Start: 07-03-2019 Level iv surg pathology gross&microscopic exam CARO TERESA Start: 07-03-2019 PATIENT STATUS (DIRECT) CARO TERESA Start: 07-03-2019 End: 07-03-2019 Coronary artery byp w/vein & artery graft 2 vein Caro Lockemanuel Work Phone: Start: 07-03-2019 Level iv surg pathology gross&microscopic exam Caro Lockemanuel Work Phone: Start: 07-03-2019 PREPARE RBC (CROSSMATCH) CARO ILAN O Start: 07-03-2019 Echo transesophag r-t 2d w/prb img acquisj i&r CARO LOCKEMANUEL Start: 07-03-2019 VITAL SIGNS CARO LOCKEMANUEL Start: 06-29-2019 Ct thorax w/o contrast material Vasiliy Garcia Work Phone: Start: 06-29-2019 Duplex scan extracranial art compl bi study Vasiliy Pérezse Work Phone: Start: 06-29-2019 ABG DRAW CARO MALICK Start: 06-28-2019 ABG DRAW CARO DIBMANUEL Start: 06-27-2019 Dup-scan xtr veins complete bilateral study CARO TERESA Start: 06-27-2019 Echo tthrc r-t 2d w/wom-mode compl spec&colr d CARO LOCKEMANUEL Start: 06-27-2019 Dup-scan xtr veins unilateral/limited study Vasiliy Garcia Work Phone: Start: 06-27-2019 ABG DRAW CARO MALICK Start: 06-26-2019 ABG DRAW CARO DIBMANUEL Start: 06-25-2019 Antibody screen Stvz 1 Start: 06-25-2019 Culture bacterial quanttative colony count urine CARO LOCKEMANUEL Start: 06-25-2019 Urinalysis microscopic only CARO SELIN GOMEZ Start: 06-25-2019 Urnls dip stick/tablet rgnt auto w/o microscopy CARO TERESA Start: 06-25-2019 Radiologic exam chest 2 views CARO CORNELIA JACKSON Start: 06-25-2019 Blood count complete auto&auto difrntl wbc CARO TERESA Start: 06-25-2019 Comprehensive metabolic panel CARO JACKSON Start: 06-25-2019 Hemoglobin glycosylated a1c CARO GOMEZ Start: 06-25-2019 Platelet aggregation in vitro each agent CARO TERESA Start: 06-25-2019 Prothrombin time CARO TERESA Start: 06-25-2019 Thromboplastin time partial plasma/whole blood CARO TERESA Start: 06-25-2019 TYPE AND SCREEN CARO TERESA Start: 06-25-2019 ARTERIAL BLOOD GAS, POC CARO TERESA Start: 06-25-2019 Ecg routine ecg w/least 12 lds w/i&r CARO TERESA Start: 06-25-2019 EKG REPORT CARO TERESA Start: 06-25-2019 ABG DRAW CARO TERESA Start: 06-25-2019 Culture bacterial quanttative colony count urine Caro Teresa Work Phone: Start: 06-25-2019 Urinalysis microscopic only Caro gomez Work Phone: Start: 06-25-2019 Urnls dip stick/tablet rgnt auto w/o microscopy Caro Teresa Work Phone: Start: 06-25-2019 Radiologic exam chest 2 views Caro jackson Work Phone: Start: 06-25-2019 Blood count complete auto&auto difrntl wbc Caro Teresa Work Phone: Start: 06-25-2019 Blood typing serologic abo Caro barraza Work Phone: Start: 06-25-2019 Comprehensive metabolic panel Caro jackson Work Phone: Start: 06-25-2019 Hemoglobin glycosylated a1c Caro gomez Work Phone: Start: 06-25-2019 Platelet aggregation in vitro each agent Caro Teresa Work Phone: Start: 06-25-2019 Prothrombin time Caro Teresa Work Phone: Start: 06-25-2019 Thromboplastin time partial plasma/whole blood Caro Teresa Work Phone: Start: 06-25-2019 Iadna s aureus methicillin resist amp probe tq Caro Teresa Work Phone: Start: 06-25-2019 ARTERIAL BLOOD GAS, POC Caro Teresa Work Phone: Start: 06-25-2019 Ecg routine ecg w/least 12 lds i&r only Caro Teresa Work Phone: Start: 06-25-2019 EKG REPORT Hpf Scanning Start: 06-06-2019 Cardiac catheterization Tasia castillo Work Phone: Start: 06-06-2019 Glucose [Mass/volume] in Blood Tasia Irizarry Work Phone: Start: 05-10-2019 Radiologic exam chest 2 views Grayson gaxiola MD Other Phone: Start: 05-10-2019 End: 05-10-2019 Comprehensive metabolic panel Grayson gaxiola MD Other Phone: Start: 05-10-2019 Lipid panel Grayson Hernandez MD Other Phone: Start: 05-10-2019 PATIENT FASTING? Grayson Hernandez MD Other Phone: Start: 04-18-2019 End: 04-18-2019 Computerized ophthalmic imaging retina Dm Agarwal Jr, MD Start: 04-19-2018 End: 04-19-2018 Computerized ophthalmic imaging retina Dm Agarwal Jr, MD Start: 01-19-2017 End: 01-19-2017 Computerized ophthalmic imaging retina Dm Agarwal Jr, MD Start: 11-03-2015 End: 11-03-2015 Computerized ophthalmic imaging retina Dm Agarwal Jr, MD Start: 11-04-2014 End: 11-04-2014 Oph medical xm&eval comprhnsv estab pt 1/> Dm Agarwal Jr, MD Start: 10-29-2013 End: 10-29-2013 Oph medical xm&eval comprhnsv estab pt 1/> Dm Agarwal Jr, MD Start: 10-20-2012 End: 10-20-2012 [facility] medical xm&eval comprhnsv estab pt 1/> Dm Agarwal Jr, MD Start: 10-20-2012 End: 10-20-2012 Vitamins Dm Agarwal Jr, MD Start: 04-26-2011 End: 04-26-2011 [facility] medical xm&eval comprhnsv estab pt 1/> Dm Agarwal Jr, MD Plan of Treatment Date Care Activity Detail Author Start: 01-07-2031 Screening for malign ant neoplasm of colon [facility] Start: 07-06-2025 Glaucoma screening Diabetes: R etinopathy Screening [facility] Start: 04-10-2025 Urine screening for protein Diabetes: Urine Protein Screening [facility] Start: 02-19-2025 End: 02-19-2025 Patient encounter procedure 02/19/2025 2:00 PM EDT Office Visit [facility] [address] [place] [address] Grayson Hernandez MD [address] [place] [address] [facility] Start: 01-20-2025 End: 08-20-2025 Comprehensive metabolic 2000 panel - Serum or Plasma Comprehensive metabolic panel Lab Routine Primary hypertension ([facility]/HCC) Hypokalemia Type 2 diabetes mellitus with stage 4 chronic kidney disease, without long-term current use of insulin ([facility]) Expected: 01/20/2025, Expires: 08/20/2025 [facility] Work Phone: Comment on above: Expected: 01/20/2025 , Expires: 08/20/2025 Start: 01-20-2025 End: 08-20-2025 Hemoglobin A1c/Hemoglobin.total in Blood Hemoglobin A1c Lab Routine Type 2 diabetes mellitus with hyperglycemia, without long-term current use of insulin ([facility]/HCC) Expected: 01/20/2025, Expires: 08/20/2025 [facility] Comment on above: Expected: 01/20/2025 , Expires: 08/20/2025 Start: 01-20-2025 End: 08-20-2025 Lipid 1996 panel - Serum or Plasma Lipid panel Lab Routine Mixed hyperlipidemia ([facility]/HCC) Expected: 01/20/2025, Expires: 08/20/2025 [facility] Comment on above: Expected: 01/20/2025 , Expires: 08/20/2025 Start: 11-05-2024 End: 11-05-2024 Patient encounter procedure 11/05/2024 11:35 AM EDT Office Visit [facility] [address] [place] [address] Jorge Luis Gasca MD [address] [place] [address] [facility] Start: 08-20-2024 End: 08-20-2024 Patient encounter procedure 08/20/2024 3:00 PM EDT Office Visit [facility] [address] [place] [address] Grayson Hernandez MD [address] [place] [address] (Fax) Primary hypertension (CMS/HCC); Mixed hyperlipidemia (CMS/HCC) ; Hypokalemia; Stage 3 chronic kidney disease due to type 2 diabetes mellitus (HCC) (CMS/HCC); Type 2 diabetes mellitus with hyperglycemia, without long-term current use of insulin (CMS/HCC); Hypomagnesemia; Polypharmacy [facility] Comment on above: Primary hypertension (CMS/HCC); Mixed hyperlipidemia (CMS/HCC) ; Hypokalemia; Stage 3 chronic kidney disease due to type 2 diabetes mellitus (HCC) (CMS/HCC); Type 2 diabetes mellitus with hyperglycemia, without long-term current use of insulin (CMS/HCC); Hypomagnesemia; Polypharmacy Start: 07-30-2024 End: 07-30-2024 Patient encounter procedure 07/30/2024 2:30 PM EDT Office Visit [facility] [address] [place] [address] Grayson Hernandez MD [address] [place] [address] (Fax) Arrived [facility] Comment on above: Arrived Start: 07-07-2024 Glaucoma screening Diabetes: R etinopathy Screening [facility] Start: 06-27-2024 Screening for malign ant neoplasm of breast Mammogram [facility] Comment on above: Postponed from 05/26 (Other Medical Reasons) Start: 06-23-2024 Glaucoma screening Diabetes: R etinopathy Screening [facility] Start: 05-24-2024 End: 05-24-2024 Patient encounter procedure [facility] Comment on above: Arrived Start: 05-18-2024 Pneumococcal Vaccine : 65+ Years (2 - PPSV23 or PCV20) Pneumococcal Vaccine: 65+ Years (2 - PPSV23 or PCV20) [facility] Comment on above: Postponed from 02/14 (Other Patient Reasons) Start: 05-18-2024 Pneumococcal Vaccine : 65+ Years (2 of 2 - PPSV23 or PCV20) Pneumococcal Vaccine: 65+ Years (2 of 2 - PPSV23 or PCV20) [facility] Comment on above: Postponed from 02/14 (Other Patient Reasons) Start: 05-10-2024 Lipid screen Lipid screen Claudia blackburn Work Phone: Start: 04-10-2024 Urine culture [facility] Start: 04-10-2024 Bacteria identified in Urine by Culture Urine Culture [facility] Start: 04-10-2024 [facility] Start: 02-24-2024 Urine screening for protein Diabetes: Urine Protein Screening [facility] Start: 02-21-2024 End: 02-21-2024 Patient encounter procedure 02/21/2024 3:30 PM EDT Office Visit [facility] [address] [address] Grayson Hernandez MD [address] [place] [address] (Fax) [facility] Start: 02-02-2024 End: 02-02-2024 Patient encounter procedure 02/02/2024 2:00 PM EDT Office Visit [facility] [address] [address] Grayson Hernandez MD [address] [place] [address] (Fax) [facility] Start: 01-07-2024 Adult BMI Screening Adult BMI Screen ing [facility] Start: 01-07-2024 Fall Risk Screening Fall Risk Screen ing [facility] Start: 01-07-2024 Tobacco Screening Tobacco Screening [facility] Start: 12-22-2023 Influenza vaccination Flu vacc ine (Season Ended) [facility] Start: 12-04-2023 Lipid panel Lipids [facility] Start: 11-08-2023 End: 11-08-2023 Patient encounter procedure [facility] [employer] Comment on above: 6 month f/u with ech o (to be done in [place]) and routine testing Dr Irizarry said we c ould move appt out since stress was good, however Start: 11-03-2023 End: 11-03-2023 Patient encounter procedure 11/03/2023 2:35 PM EDT Office Visit [facility] [address] [place] [phone] Jorge Luis Gasca MD [address] [place] [address] [facility] Start: 09-19-2023 End: 09-19-2023 Patient encounter procedure 09/19/2023 10:30 AM EDT Office Visit [facility] [employer] [facility] [address] [place] [phone] Anshul Irizarry MD [address] [place] [address] 4 week follow up LOVE [facility] [employer] Comment on above: 4 week follow up LOVE Start: 09-14-2023 Medicare Annual Well ness (AWV) Medicare Annual Wellness (AWV) [facility] Start: 08-19-2023 Shingles vaccine (2 of 2) Alex gles vaccine (2 of 2) [facility] Start: 08-08-2023 End: 08-08-2023 Patient encounter procedure 08/08/2023 2:30 PM EDT Office Visit [facility] [address] [place] [address] Grayson Hernandez MD [address] [place] [address] [facility] Start: 07-07-2023 Smoking cessation education Tobacco cessation counseling [facility] Start: 07-05-2023 End: 07-05-2023 Patient encounter procedure 07/05/2023 3:00 PM EST Office Visit [facility] [address] [place] [phone] Walker Monroy MD [address] [place] [address], [address] [place] [address] [facility] Start: 06-03-2023 Hemoglobin A1c measurement Diabetes: Hemoglobin A1C [facility] Start: 05-26-2023 Screening for malign ant neoplasm of breast Breast cancer screen [facility] Start: 05-23-2023 Annual Wellness Visi t (Medicare Advantage) Annual Wellness Visit (Medicare Advantage) [facility] Start: 01-21-2023 COVID-19 Vaccine ( season) COVID-19 Vaccine ( season) [facility] Start: 01-21-2023 COVID-19 Vaccine ( season) COVID-19 Vaccine ( season) [facility] Start: 01-21-2023 Influenza vaccination Influenza Vacc ine [facility] Start: 01-13-2023 Depression Screening Depression Scre ening [facility] Start: 08-03-2022 Screening for malign ant neoplasm of colon [facility] Start: 06-23-2022 Smoking cessation education Tobacco cessation counseling [facility] Start: 10-21-2021 End: 10-21-2021 Patient encounter procedure 10/21/2021 Office Visit Cardiology Anshul Irizarry MD [address] [place] [id number] [facility] Start: 01-30-2021 COVID-19 Vaccine (3 - Booster for Moderna series) COVID-19 Vaccine (3 - Booster for Moderna series) [facility] Start: 01-30-2021 Creatinine measurement Creatinine mo [facility] Start: 01-30-2021 HbA1c (Bld) [Mass fraction] A1C test (Diabetic or Prediabetic) [place], [place] Start: 01-30-2021 Hemoglobin A1c measurement A1C test (Diabetic or Prediabetic) [facility] Start: 01-30-2021 Lipid panel Lipid screen [facility] Start: 01-30-2021 Potassium monitoring Potassium monit [facility] Start: 10-02-2020 Creatinine measurement Creatinine mo [place], [place] Start: 10-02-2020 Lipid panel Lipid screen [place], [place] Start: 10-02-2020 Potassium monitoring Potassium monit [place], [place] Start: 08-03-2020 Screening for malign ant neoplasm of colon FIT/FOBT: Average risk [facility] Start: 07-23-2020 Statin Therapy Statin Therapy [place], [place] Start: 07-23-2020 [place] Start: 07-15-2020 [place] Start: 07-01-2020 End: 07-01-2020 Office Visit 07/01/2020 Office Visit Cardiology Anshul Irizarry MD [address] [place] [id number] [facility] [facility] Start: 06-25-2020 A1C test (Diabetic o r Prediabetic) A1C test (Diabetic or Prediabetic) [facility] Work Phone: Start: 06-25-2020 Creatinine monitoring Creatinine mon itoring [facility] [employer] Phone: Start: 06-25-2020 HbA1c (Bld) [Mass fraction] A1C test (Diabetic or Prediabetic) [place], [place] Start: 06-25-2020 Potassium monitoring Potassium monit [facility] Phone: Start: 06-25-2020 [place] Start: 05-10-2020 A1C test (Diabetic o r Prediabetic) A1C test (Diabetic or Prediabetic) [employer] Work Phone: Start: 05-10-2020 Creatinine monitoring Creatinine mon itoring [facility] [employer] Work Phone: Start: 05-10-2020 Potassium monitoring Potassium monit oring [facility] [employer] Work Phone: Start: 05-10-2020 [facility] Start: 04-23-2020 Patient Education Health Infor mation for You: [employer]~ [facility] Work Phone: Start: 01-22-2020 Influenza vaccination [place], [place] Start: 01-08-2020 End: 01-08-2020 Office Visit 01/08/2020 Office Visit Cardiology Anshul Irizarry MD [address] [place] [address] [facility] [employer] Start: 08-22-2019 End: 08-22-2019 [facility] Specialist Start: 07-25-2019 End: 08-24-2019 [employer] [place], [place] Start: 07-03-2019 End: 07-03-2019 Hospital Encounter JASON LOMAX Comment on above: CABG CORONARY ARTERY BYPASS X2; AORTIC VALVE REPLACEMENT, ON PUMP, JESSICA GUAMAN, LOVE Start: 06-29-2019 End: 06-29-2019 Appointment [facility] Start: 06-25-2019 Annual Wellness Visi t (AWV) Annual Wellness Visit (AWV) [facility] [employer] Start: 06-25-2019 [place] Start: 05-30-2019 End: 05-30-2019 Patient encounter procedure 05/30/2019 Office Visit Cardiology Anshul Irizarry MD [address] [place] [address] [facility] [employer] Start: 05-10-2019 Annual Wellness Visi t (AWV) Annual Wellness Visit (AWV) [facility] [employer] Work Phone: Start: 04-18-2019 Patient Education Health Infor mation for You: [employer]~ [facility] Work Phone: Start: 01-21-2019 Influenza vaccination Flu vaccine (# 1) [facility] Start: 01-21-2019 [facility] [place] [place] Start: 12-20-2017 Pneumococcal 65+ yea rs Vaccine (2 - PPSV23 or PCV20) Pneumococcal 65+ years Vaccine (2 - PPSV23 or PCV20) [facility] Start: 12-20-2017 Pneumococcal 65+ yea rs Vaccine (2 of 2 - PPSV23 or PCV20) Pneumococcal 65+ years Vaccine (2 of 2 - PPSV23 or PCV20) [facility] [employer] Start: 02-14-2017 Pneumococcal Vaccine : 65+ Years (2 of 2 - PPSV23 or PCV20) Pneumococcal Vaccine: 65+ Years (2 of 2 - PPSV23 or PCV20) [facility] Start: 2013 DEXA (modify frequen cy per FRAX score) DEXA (modify frequency per FRAX score) [employer] Phone: Start: 2013 Pneumococcal 65+ yea rs Vaccine (1 of 1 - PPSV23) Pneumococcal 65+ years Vaccine (1 of 1 - PPSV23) [employer] Phone: Start: 2013 Pneumococcal 65+ yea rs Vaccine (2 of 2 - PPSV23) Pneumococcal 65+ years Vaccine (2 of 2 - PPSV23) [facility]: Start: 2013 [facility] [place] Start: 2008 Respiratory Syncytia l Virus (RSV) or age 60 yrs+ (1 - 1-dose 60+ series) Respiratory Syncytial Virus (RSV) or age 60 yrs+ (1 - 1-dose 60+ series) [facility] [employer] Start: 12-09-2003 Screening for osteoporosis DEXA (modify frequency per FRAX score) [facility] [employer] Start: 1998 Administration of varicella zoster vaccine Zoster (Shingles) Vaccine (1 of 2) [facility] [employer] [employer] Start: 1998 Breast cancer screen [facility] Phone: Start: 1998 Colon cancer screen colonoscopy Colon cancer screen colonoscopy [employer] Phone: Start: 1998 Screening for malign ant neoplasm of breast Breast cancer screen [facility] Start: 1998 Screening for malign ant neoplasm of colon Colon cancer screen colonoscopy [facility] [place] Start: 1998 Shingles Vaccine (1 of 2) Alex gles Vaccine (1 of 2) [facility] Start: 1998 [place], [place] Start: 1993 Screening for malign ant neoplasm of colon [facility] Start: 1988 Lipid screen Lipid screen [facility] [email or web address] Phone: Start: 12-09-1967 DTaP,Tdap and Td Vac cines (1 - Tdap) DTaP,Tdap and Td Vaccines (1 - Tdap) [employer] Start: 12-09-1967 DTaP/Tdap/Td vaccine (1 - Tdap) DTaP/Tdap/Td vaccine (1 - Tdap) [facility] Start: 12-09-1967 Hepatitis B vaccine (1 of 3 - Risk 3-dose series) Hepatitis B vaccine (1 of 3 - Risk 3-dose series) [employer] Phone: Start: 12-09-1967 [place], [place] Start: 1966 Adult BMI Follow Up Plan [facility] Start: 1960 Depression Screen Depression Screen [facility] Start: 12-09-1959 DTaP/Tdap/Td vaccine (1 - Tdap) DTaP/Tdap/Td vaccine (1 - Tdap) [employer] Phone: Start: 12-09-1959 [facility] [place] Start: 1958 A1C test (Diabetic o r Prediabetic) A1C test (Diabetic or Prediabetic) [facility] Phone: Start: 1948 Creatinine monitoring Creatinine mon itoring [employer] Phone: Start: 1950 Hepatitis C screen Hepatitis C madeline sepulveda [employer] Phone: Start: 1948 Medicare Annual Well ness Visit Medicare Annual Wellness Visit [facility] [employer] Start: 1948 Potassium monitoring Potassium monit lou [employer] Phone: Start: 1950 Screening for malign ant neoplasm of colon [facility] ABG draw ABG draw Respira tory Care Routine Daily until discontinued starting 06/25/2019 [employer] Phone: Comment on above: Daily until disconti nued starting 06/25/2019 Albumin [Mass/volume ] in Serum or Plasma [facility] Albumin/Globulin ratio [facility] Basic metabolic 2000 panel [employer] [place], [place] [employer], [place] End: 07-03-2019 BLOOD BANK REQUEST [email or web address] End: 07-04-2019 BLOOD BANK REQUEST [employer] Cardiac catheterization Cardiac Catheterization Cardiac Cath Routine 06/06/2019 10:52 AM EST [facility] End: 09-07-2021 Cardiac event monitor Cardiac event monitor Cardiac Services Routine Palpitations 1 Occurrences starting 09/07/2021 until 09/07/2021 [employer] Phone: Comment on above: 1 Occurrences starti ng 09/07/2021 until 09/07/2021 CBC [employer] Continuous pulse oximetry Pulse oximetry, continuous Respiratory Care Routine Every 4hr until discontinued starting 09/01/2023 [employer] Comment on above: Every 4hr until disc ontinued starting 09/01/2023 EKG 12 Lead [employer] Phone: Electrophoresis: [id number] [facility] Electrophoresis: [id number] [facility] Electrophoresis: beta-globulin [facility] Electrophoresis: candida ma globulin [facility] End: 09-01-2023 End Tidal CO2 Continuous End Tidal CO2 Continuous Respiratory Care Routine Continuous until discontinued starting 09/01/2023 [employer] Comment on above: Continuous until dis continued starting 09/01/2023 Globulin [Mass/volum e] in Serum [facility] Hemoglobin and Hematocrit, Blood, Post Transfusion [place], [place] IgA [Mass/volume] in Serum or Plasma [facility] IgG [Mass/volume] in Serum or Plasma [facility] IgM [Mass/volume] in Serum or Plasma [facility] Immunofixation for Urine [facility] Initiate Oxygen Ther apy Protocol [place], [place] light chains.f ree [Mass/volume] in Serum [facility] [place] light chains.free/Lambda light chains.free [Mass Ratio] in Serum [facility] Lambda light chains. free [Mass/volume] in Serum or Plasma [facility] Magnesium [Mass/Vol] [place], [place] Oxygen therapy [[facility] Set] Initiate Oxygen Therapy Protocol Respiratory Care Routine As Needed until discontinued starting 09/01/2023 [facility] Comment on above: As Needed until disc ontinued starting 09/01/2023 End: 08-17-2023 Percutaneous coronary intervention [facility] Comment on above: One Time for 1 Occur rences starting 08/17/2023 until 08/17/2023 Phosphate [Mass/Vol] [place], [place] Platelets (Bld) [#/Vol] [place], [place] POCT Glucose [place], [place] End: 07-16-2019 PREPARE RBC (CROSSMATCH), 1 Units [place], [place] End: 07-03-2019 PREPARE RBC (CROSSMATCH), 2 Units [place] End: 07-12-2019 PREVIOUS SPECIMEN [place] PREVIOUS SPECIMEN [place], [place] Protein [Mass/volume ] in Serum or Plasma [facility] Protime-INR [place], [place] Serum immunofixation [facility] End: 07-20-2019 DIE REPAIRER STAMPING clinical swallow evaluation [place], [place] End: 07-22-2019 DIE REPAIRER STAMPING clinical swallow evaluation [place], [place] STRESS TEST REPORT STRESS TEST R EPORT Cardiac Services Ordered: 09/28/2023 [facility] [employer] [facility] Comment on above: Ordered: 09/28/2023 [facility] [place] Immunizations Immunization Date Immunization Notes Care Provider Fa emmy 11-21-2023 zoster vaccine recombinant Grayson Hernandez MD Work Phone: [facility] 11-21-2023 Shingrix 50 MCG/0.5M L vaccine Grayson Hernandez MD Work Phone: [facility] 06-24-2023 zoster vaccine recombinant Grayson Hernandez MD Work Phone: [facility] 03-19-2022 Moderna Bivalent Booster Vaccination Shannen Velazquez RN Work Phone: [facility] 08-11-2021 COVID-19, mRNA, LNP- S, PF, 100mcg/0.5mL Dose Alma Hankins RN [facility] 06-23-2021 influenza, high dose seasonal, preservative-free Alma Hankins RN [facility] 06-23-2021 influenza virus vaccine, unspecified formulation Alma Hankins RN [facility] 04-27-2021 COVID-19, mRNA, LNP- S, PF, 100mcg/0.5mL Dose Alma Hankins RN [facility] 08-30-2020 COVID-19 Vaccine Moderna - Documentation Purposes Only Martha Rendon Other [facility] 08-02-2020 COVID-19 Vaccine Moderna - Documentation Purposes Only Martha Rendon Other [facility] 03-01-2020 influenza, injectabl e, quadrivalent, preservative free Alma Hankins RN [facility] 02-28-2020 Seasonal, quadrivale nt, recombinant, injectable influenza vaccine, preservative free Alma Hankins RN [facility] 03-25-2018 influenza, high dose seasonal, preservative-free Alma Hankins RN [facility] 03-25-2018 influenza, injectabl e, quadrivalent, preservative free Alma Hankins RN [facility] 12-20-2016 pneumococcal conjuga te vaccine, 13 valent Alma Hankins RN [facility] 03-01-2016 influenza, injectabl e, quadrivalent, preservative free Alma Hankins RN [facility] 05-23-2015 influenza, seasonal, injectable Dm Agarwal Jr, MD [facility] Comment on above: Note: Invalid docume nted admin date was /. ; Source: Other Provider Payers Date Payer Category Payer Medicare [id number] 2024 Self-pay 2022 Medicare (Managed Care) 1.2. [id number] 2022 Unknown [id number]. 1.13.693.2. [id number] 2020 Unknown [id number] 2019 Unknown [id number] 2019 Medicare MEDICARE MEDICAR E PART A & B [id number] 2019-Present [place] [id number]. [id number] 2019 Medicare [id number] 2019 Medicare MEDICARE PFFS ME DICARE HMO/PPO/PFFS MISC* [id number] 2019-Present [id number] 1.2.840.239064.1.13.385.2. 7.3.785697.315 2019 Medicare [id number] 2017 Medicare [id number] [id number]. [id number] 2017 Unknown [id number] 2014 Medicare xxxxxxxxx [id number]. [id number] 1959 Medicare [id number] 1959 Self-pay [id number] 1948 Unknown [id number] 2.16.840.1.222030.3.579.2. 903 1948 Unknown [id number] 2.16.840.1.411154.3.579.2. 903 1948 Unknown [id number] 2.16.840.1.681447.3.579.2. 175 1948 Unknown [id number] 2.16.840.1.839606.3.579.2. 175 1948 Unknown [id number] 2.16.840.1.836898.3.579.2. 175 1948 Unknown [id number] 2.16.840.1.195934.3.579.2. 175 1948 Unknown [id number] 2.16.840.1.362399.3.579.2. 175 1948 Unknown [id number] 2.16.840.1.950891.3.579.2. 732 1948 Unknown [id number] 2.16.840.1.440277.3.579.2. 593 1948 Unknown [id number] 2.16.840.1.408998.3.579.2. 593 1948 Unknown [id number] 2.16.840.1.091811.3.579.2. 593 1948 Unknown [id number] 2.16.840.1.811024.3.579.2. 593 1948 Unknown [id number] 2.16.840.1.916865.3.579.2. 593 1948 Unknown [id number] 2.16.840.1.715040.3.579.2. 593 1948 Unknown [id number] 2.16.840.1.635438.3.579.2. 593 1948 Unknown [id number] 2.16.840.1.646748.3.579.2. 173 1948 Unknown [id number] 2.16.840.1.102940.3.579.2. 173 1948 Unknown [id number] 2.16.840.1.511852.3.579.2. 174 1948 Unknown [id number] 2.16.840.1.662442.3.579.2. 174 1948 Unknown [id number] 2.16.840.1.984999.3.579.2. 174 1948 Unknown [id number] 2.16.840.1.626510.3.579.2. 174 1948 Unknown [id number] 2.16.840.1.256850.3.579.2. 174 1948 Unknown [id number] 2.16.840.1.987306.3.579.2. 1347 1948 Unknown [id number] 2.16.840.1.828731.3.579.2. 125 1948 Unknown [id number] 2.16840.1.544347.3.579.2. 125 1948 Unknown [id number] 2.16.840.1.715510.3.579.2. 125 1948 Unknown [id number] 2.16840.1.483171.3.579.2. 125 1948 Unknown [id number] 2.16840.1.856601.3.579.2. 125 1948 Unknown [id number] 2.16.840.1.927228.3.579.2. 125 1948 Unknown [id number] 2.16.840.1.255661.3.579.2. 125 1948 Unknown [id number] 2.16.840.1.202250.3.579.2. 1259 Unknown [id number] 2.16.840.1.798473.3.579.2. 531 Unknown [id number] 2.16.840.1.837587.3.579.2. 531 Social History Date Type Detail Facility Start: 06-06-2019 End: 01-25-2023 Tobacco smoking status NHIS Never smoker [facility] Start: 06-06-2019 End: 01-06-2023 Alcohol intake Ex-drinker (finding) [facility] Start: 1950 Sex Assigned At Not on file M [employer] Phone: Start: 06-25-2019 End: 09-04-2023 Alcohol intake Lifetime non-drinker (finding) [employer] Phone: Start: 05-10-2019 History SDOH Alcohol Frequency 1 [employer] Phone: Start: 02-25-2020 End: 01-25-2023 Tobacco use and exposure Never used [employer] [place], [place] Start: 02-28-2023 End: 09-05-2023 Sex Assigned At [facility] [facility] Start: 06-07-2023 End: 08-20-2024 Alcohol intake Current drinker of alcohol (finding) [facility] Start: 06-07-2023 End: 09-05-2023 Alcohol intake [facility] Do you belong to any clubs or organizations such as congregation groups, unions, fraternal or athletic groups, or school groups? Yes [facility] Are you now , , , , never or living with a partner? [facility] How often to you hav e a drink containing alcohol? Monthly or less [facility] How many standard drinks containing alcohol do you have on a typical day? 1 or 2 [facility] How often do you hav e 6 or more drinks on 1 occasion? Never [facility] How hard is it for y ou to pay for the very basics like food, housing, medical care, and heating Not hard at all [facility] Do you feel stress - tense, restless, nervous, or anxious, or unable to sleep at night because your mind is troubled all the time - these days [OSQ] To some extent [facility] (I/We) worried wheth er (my/our) food would run out before (I/we) got money to buy more. Never true [facility] In the past 12 month s, was there a time when you were not able to pay the mortgage or rent on time? No [facility] Start: 11-30-2022 Education 21 [facility] Start: 01-25-2023 Alcohol Comment Caffeine: 2-4 cups [facility] Start: 04-11-2024 End: 04-12-2024 Sex Patient sex unknown (finding) [facility] Start: 1950 Sex Assigned At Female F [facility] Start: 07-06-2024 Alcohol intake (observable entity) Alcohol Use Details [facility] NEGATED: Highlighted rowStart: 07-06-2024 Tobacco smoking status NHIS Unknown if ever smoked [facility] NEGATED: Highlighted rowStart: 07-06-2024 History of tobacco use Current non-smoker [facility] Medical Equipment Procedure Code Equipment Code Equipment Origin al Text Equipment Identifier Dates Closure [employer] e Se - [id number] , [id number] FDA Start: 06-06-2019 [id number] Start: 07-03-2019 [id number] Start: 07-03-2019 [id number] Start: 07-03-2019 [id number] Start: 07-04-2019 Comment on above: Description: NO OCTAVIO GE PER COURTNEY WILKINSON [id number] Start: 07-04-2019 Comment on above: Description: NO OCTAVIO GE PER COURTNEY MENESES AND REP HARITHA WILKINSON [id number] Start: 07-04-2019 Comment on above: Description: NO OCTAVIO GE PER COURTNEY MENESES AND REP. HARITHA WILKINSON [id number] Start: 07-03-2019 [id number] Start: 07-03-2019 [id number] Start: 07-03-2019 [id number] Start: 07-03-2019 USE 1 TO CHECK GLUCOSE ONCE DAILY [id number] Start: 12-06-2022 1 each by Other route if needed. [id number] Start: 08-30-2022 1 each by Other route Daily [id number] Start: 09-01-2023 End: 10-05-2024 1 Lancet Daily [id number] Start: 11-30-2023 End: 01-03-2025 Goals Date Patient Goal Desired Activity /State Personal health goal Comment on above: Formatting of this n ote might be different from the original. Evaluation of progress towards goal: patient plans for a safe discharge home with self care and support from and son. Clinical Notes 06-23-2019 to 08-20-2024 Grayson Hernandez MD - 08/20/2024 3:00 PM EDT Note Date & Type Note Facility 08-20-2024 History of Presen t illness Narrative Images from the original note were not included. Patient ID: Eleanor Mcclain is a 73 y.o. female who presents for: The patient has with them today and independent historian; Her who is also forgetful which complicates the visit. The independent historian is here to ensure that the information related to us in the HPI and review of systems is accurate. They are also here to help the patient to understand and follow through with treatment plans established today. Hypertension Patient is here for follow-up of elevated blood pressure. She is not exercising and is adherent to a low-salt diet. Blood pressure is well controlled at home. Cardiac symptoms: none. Patient denies chest pain, dyspnea, irregular heart beat, lower extremity edema, and palpitations. Cardiovascular risk factors: advanced age (older than 55 for men, 65 for women), diabetes mellitus, dyslipidemia, hypertension, and sedentary lifestyle. Use of agents associated with hypertension: thyroid hormones. History of target organ damage: chronic kidney disease and stroke. Hyperlipidemia Pt who presents for follow-up of dyslipidemia. A repeat fasting lipid profile was done. The patient does not use medications that may worsen dyslipidemias (corticosteroids, progestins, anabolic steroids, diuretics, beta-blockers, amiodarone, cyclosporine, olanzapine). Exercise: never. Diabetes Mellitus Patient presents for follow up of diabetes. Current symptoms include: none. Symptoms have stabilized. Patient denies increased appetite, paresthesia of the feet, and visual disturbances. Evaluation to date has included: hemoglobin A1C. Home sugars: see scanned docs . Review of Systems Constitutional: Negative for activity change and fatigue. Respiratory: Negative for cough, shortness of breath and wheezing. Cardiovascular: Negative for chest pain, palpitations and leg swelling. Neurological: Negative for light-headedness and headaches. Objective The patient is pleasant and in no acute distress. The neck is supple and trachea is midline. No masses are appreciated. The heart is regular rate and rhythm without S3, S4. No murmur. The patient has normal respiratory pattern. The breath sounds are diffusely decreased but symmetrical without evidence of rhonchi or rales. No wheezing. The skin is warm and dry. The lower extremities have trace edema. The patient has fair eye contact and speech is slow but clear. constricted affect. Visit Vitals BP 112/70 Pulse 71 Ht 5' 2.5 Wt 141 lb SpO2 99% BMI 25.38 kg/m OB Status Hysterectomy Smoking Status Never BSA 1.68 m Allergies Allergen Reactions Latex Anaphylaxis Other Reaction(s): Anaphylactic Shock, nose runs, eyes swell, itching Other reaction(s): nose runs, eyes swell, itching, unknown Eyes swell shut, rash Eyes swell shut, rash Eyes swell shut, rash Current Outpatient Medications on File Prior to Visit Medication Sig Dispense Refill ALPRAZolam XR (Xanax XR) 1 MG 24 hr tablet Take 1 tablet (1 mg) by mouth in the morning. Do not crush, chew, or split.. 30 tablet 5 apixaban (Eliquis) 5 MG tablet Take 1 tablet by mouth in the morning and 1 tablet before bedtime. ARIPiprazole (Abilify) 2 MG tablet Take 0.5 tablets (1 mg) by mouth in the evening 15 tablet 0 aspirin 81 MG EC tablet Take 81 mg by mouth in the morning. atorvastatin (Lipitor) 40 MG tablet Take 1 tablet (40 mg) by mouth Daily 30 tablet 0 Blood Glucose Monitoring Suppl (ONE TOUCH ULTRA 2) w/Device kit USE ONCE DAILY TO CHECK BLOOD SUGAR. calcium citrate 250 MG tablet Take 1 tablet by mouth 1 (one) time each day. carvedilol (Coreg) 6.25 MG tablet Take 6.25 mg by mouth in the morning and 6.25 mg in the evening. Take with meals. cholecalciferol (Vitamin D-3) 125 MCG (5000 UT) capsule Take 5,000 Units by mouth in the morning. dilTIAZem CD (Cardizem CD) 180 MG 24 hr capsule Take 1 capsule (180 mg) by mouth Daily 90 capsule 1 donepezil (Aricept) 10 MG tablet Take 2 tablets (20 mg) by mouth at bedtime 180 tablet 1 dulaglutide (Trulicity) 0.75 MG/0.5ML solution pen-injector Inject 0.75 mg under the skin once a week. On Tuesday DULoxetine (Cymbalta) [address] capsule Take 2 capsules (40 mg) by mouth Daily Do not crush or chew. 60 capsule 2 furosemide (Lasix) 20 MG tablet 2 tablets every am (= 40 mg) and 1 tablet (=20 mg) daily before supper 90 tablet 0 glucose blood (Sorbent Greenuch Ultra) test strip 1 each by Other route Daily 100 each 3 ipratropium (Atrovent) 0.06 % nasal spray Administer 2 sprays into each nostril in the morning and 2 sprays at noon and 2 sprays in the evening and 2 sprays before bedtime. 15 mL 0 Lancets ([employer] Delica Plus [id number]) misc 1 Lancet Daily 100 each 3 levothyroxine (Synthroid, Levoxyl) 88 MCG tablet Take 1 tablet (88 mcg) by mouth Daily 90 tablet 1 magnesium 200 MG tablet Take 200 mg by mouth in the evening. [DISCONTINUED] atorvastatin (Lipitor) 40 MG tablet Take 1 tablet (40 mg) by mouth Daily 90 tablet 1 [DISCONTINUED] furosemide (Lasix) 20 MG tablet 2 tablets every am (= 40 mg) and 1 tablet (=20 mg) daily before supper 90 tablet 0 No current facility-administered medications on file prior to visit. 1. Primary hypertension (CMS/HCC) Chronic problem, stable. Complicated - dilTIAZem CD (Cardizem CD) 180 MG 24 hr capsule; Take 1 capsule (180 mg) by mouth Daily Dispense: 90 capsule; Refill: 1 - furosemide (Lasix) 20 MG tablet; 2 tablets every am (= 40 mg) and 1 tablet (=20 mg) daily before supper Dispense: 90 tablet; Refill: 1 - Comprehensive metabolic panel; Future - Comprehensive metabolic panel 2. Chronic diastolic congestive heart failure, NYHA class 1 (CMS/HCC) Chronic problem, stable, continue current treatment. - furosemide (Lasix) 20 MG tablet; 2 tablets every am (= 40 mg) and 1 tablet (=20 mg) daily before supper Dispense: 90 tablet; Refill: 1 3. Mixed hyperlipidemia (CMS/HCC) In prescribing a renewal to their current medication, consideration of the following encompasses moderate decision making; the current prescriptions and supplements, the current allergies and medication intolerances, current medical conditions, and potential drug interactions. Any changes to risks, benefits, and reason for renewing their current medication due to the above were discussed. The patient was given a chance to ask questions today and all questions were answered. The patient is to contact us if any other questions arise or if any problems occur. (Utilizing the original guidelines or the 2020 office/outpatient code guidelines for selecting the level of E/M service, In both sets of guidelines, prescription drug management appears in the moderate medical decision making (MDM) row. Neither the original guidelines nor the new guidelines state that a new prescription or change is needed in order to credit prescription drug management) - atorvastatin (Lipitor) 40 MG tablet; Take 1 tablet (40 mg) by mouth Daily Dispense: 90 tablet; Refill: 1 - Lipid panel; Future - Lipid panel 4. Hypokalemia Chronic recurrent problem continue to monitor longitudinally - Comprehensive metabolic panel; Future - Comprehensive metabolic panel 5. Hypomagnesemia Chronic recurrent problem continue to supplement 6. Stage 4 chronic kidney disease due to type 2 diabetes mellitus (HCC) ([facility]) Chronic problem that is stable for now. They have had multiple previous opportunities to be referred to Nephrology and I have chosen not to. - Comprehensive metabolic panel; Future - Comprehensive metabolic panel 7. Type 2 diabetes mellitus with hyperglycemia, without long-term current use of insulin ([facility]) Chronic problem continue current treatment. - Hemoglobin A1c; Future - Hemoglobin A1c 8. Polypharmacy Chronic problem The patient meets the criteria for polypharmacy; 5 or more prescriptions or multi-morbidity defined as 5 or more diagnoses. Polypharmacy can significantly increase the risk of preventable adverse drug events and negatively impact adherence. Consideration of diverse factors such as clinician agreement, patient perspective, and de-prescribing, as appropriate can improve patient outcomes while simplifying care. This requires longitudinal monitoring as there is at least a moderate risk of morbidity and requires at least a moderate degree of evaluation and management. 9. Edema, unspecified type More of an acute problem that is probably secondary to multiple of the above illnesses not being Optimized. Adjust the Lasix. 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 OU assessment Presence of intraocular lens Jun impression Presence of intraocular lens: Z9 6.1 [facility] Work Phone: [phone] History of Present illness Narrative* Encounter Date Complaint History Of Prese nt Illness diabetic eye exam The 73 year ol d patient presents for a diabetic eye exam in the right and left eyes. The patient denies new vision change in either eye since her last exam about 12mths ago. NPDR The 72 year old patient presents for evaluation of NPDR in the right and left eyes. Patient reports stable vision since her last appointment 1 year ago. Patient denies flashes, floaters, and eye pain. NPDR The 71 year old female presents for evaluation of NPDR in the right eye and left eye. Patient reports worsening vision both near and far and is also causing headaches. Patient states symptoms are due to her cataracts which she has scheduled for surgery 06/30/22 OD and 07/14/22 OS. Patient notes she is very light sensitive, but denies flashes of light or floaters in both eyes. NPDR The 70 year old female presents for evaluation of NPDR in the right and left eyes. stable vision The patient is p resent for evaluation of stable vision in the right and left eyes. It started about 1 year(s) ago. It occurs constantly. Patient denies eye pain. Patient reports occasional double vision when she is reading. Attributes symptom to being tired. Diabetic retinopathy The 69 year old female presents for diabetic retinopathy in both eyes. blurry vision The patient repo rts blurry vision in the right eye. It started about 10 month(s) ago after patient had heart surgery 07/02/2019 . It occurs infrequently. It affects both near and distance vision. The condition is moderate. In addition, the condition is associated with daily activities and chores. Patient reports headaches and dizziness (shooting ain in the right eye). Patient reports intermittent floaters. Patient denies flashes. Patient reports no vision changes in the left eye. Diabetic retinopathy The 68 year old female presents for diabetic retinopathy in both eyes. stable vision The patient repo rts stable vision in both eyes since last visit about 12 month(s) ago. It occurs constantly. It affects both near and distance vision. In addition, the condition is associated with daily activities and chores. Patient reports eyes getting tired after reading and being on the computer. Patient denies floaters and flashes. diabetic retinopathy The 67 year old female presents for evaluation of diabetic retinopathy in both eyes. The patient reports stable vision in both eyes since last exam about 15 months ago. It affects both near and far vision. The symptom is constant. In addition, the condition is associated with daily activity and chores. Patient denies eye pain and flashes. reports no visual changes The brant vila reports no visual changes in the right eye and left eye since her last visit 1 year ago. It affects both near and far vision. The symptom is constant. The condition is stable. In addition, the condition is associated with daily activity and chores. The patient denies flashes, floaters. diabetic retinopathy The 66 year old female presents for evaluation of diabetic retinopathy in the right eye and left eye. no noticeable change in vision T he patient complains of no noticeable change in vision in the right eye and left eye. It started about 1 year ago . It affects both near and far vision. The symptom is constant. It occurs always. The condition is not any better. In addition, the condition is associated with daily activity and chores. The patient denies change in vision. diabetic retinopathy The 64 year old female presents for evaluation of diabetic retinopathy in both eyes. no noticeable change in vision blood pressure The patient's bl ood pressure was at 132/ 74. blurry vision The patient comp lains of blurry vision in the right eye and left eye. It started about 1 year ago . The onset was gradual. It affects both near and far vision. The symptom is infrequent. 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 BS today 176. BP today was 142/80. decreased in vision The patient complains of a decrease in vision in the right eye and left eye for months. The onset was gradual. It affects near vision. The symptom is constant. It occurs all the time. The condition is mild. The condition is described as blurring. In addition, the condition is associated with reading. 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 [facility] Work Phone: [phone] Instructions* Date Instruction Additional Infor cristi 12mth fu oct Related to Type 2 diab with mild nonp rtnop without macular edema, bi Impression/Plan Related to Type 2 diab with mild nonp rtnop without macular edema, bi Impression/Plan Related to Prese nce of intraocular lens Impression/Plan Related to Type 2 diab with mild nonp rtnop without macular edema, bi Impression/Plan Related to Essen tial (primary) hypertension Impression/Plan Related to Prese nce of intraocular lens Impression/Plan Related to Vitre ous degeneration, bilateral Impression/Plan Related to Retin al hemorrhage, bilateral Impression/Plan Related to Type 2 diab with mild nonp rtnop without macular edema, bi Impression/Plan Related to Essen tial (primary) hypertension Impression/Plan Related to Age-r elated nuclear cataract, bilateral Return in 1 year for follow up a nd OCT Related to Type 2 diab with mild nonp rtnop without macular edema, bi Impression/Plan Related to Vitre ous degeneration, bilateral Impression/Plan Related to Essen tial (primary) hypertension Impression/Plan Related to Age-r elated nuclear cataract, bilateral Impression/Plan Related to Retin al hemorrhage, bilateral Impression/Plan Related to Type 2 diab with mild nonp rtnop without macular edema, bi Return in Related to Type 2 diab with mild nonp rtnop without macular edema, bi Impression/Plan Related to Essen tial (primary) hypertension Impression/Plan Related to Age-r elated nuclear cataract, bilateral Impression/Plan Related to Retin al hemorrhage, bilateral Impression/Plan Related to Vitre ous degeneration, bilateral Impression/Plan Related to Type 2 diab with mild nonp rtnop without macular edema, bi Return in 1 year wit h Naveen Decker MD for follow up and OCT Related to Type 2 diab with mild nonp rtnop without macular edema, bi Impression/Plan Related to Retin al hemorrhage, bilateral Impression/Plan Related to Vitre ous degeneration, bilateral Impression/Plan Related to Essen tial (primary) hypertension Impression/Plan Related to Age-r elated nuclear cataract, bilateral Impression/Plan Related to Type 2 diab with mild nonp rtnop without macular edema, bi Return in 1 year wit annia Decker for follow up exam and OCT. Related to Type 2 diab with mild nonp rtnop without macular edema, bi Impression/Plan Related to Type 2 diab with mild nonp rtnop without macular edema, bi Impression/Plan Related to Essen tial (primary) hypertension Impression/Plan Related to Age-r elated nuclear cataract, bilateral Impression/Plan Related to Retin al hemorrhage, bilateral Impression/Plan Related to Vitre ous degeneration, bilateral Return in 1 year wit annia Decker for follow up exam and OCT. Related to Type 2 diab with mild nonp rtnop without macular edema, bi Impression/Plan - No t visually significant, will monitor for progression. Related to Age-related nuclear cataract, bilateral Impression/Plan - Fe w rare dot and blot hemorrhages noted; secondary to NPDR. Will continue to monitor. Related to Retinal hemorrhage, bilateral Impression/Plan - Th ere is no evidence of a retinal tear, break or detachment. Related to Vitreous degeneration, bilateral Impression/Plan - No n-Proliferative Diabetic Retinopathy without signs of neovascularization was noted on examination today and explained to the patient. No treatment is necessary at this time. The patient was instructed to call with new floaters or vision changes. Discussed ocular and systemic benefits of blood sugar control as well as the importance of follow up compliance from a retinal standpoint with the PCP/Custodial Operations Manager. Appropriate follow up with primary eye student career development specialist was recommended. Letter sent to PCP. Related to Type 2 diab with mild nonp rtnop without macular edema, bi Follow up - Return i n [address] Decker for follow up exam and OCT. Related to Type 2 diab with mild nonp rtnop without macular edema, bi - Will continue to monitor. Rela angely to Secondary pigmentary degeneration, bilateral - There is no eviden ce of a retinal tear, break or detachment. Related to Vitreous degeneration, bilateral - Non-Proliferative Diabetic Retinopathy without signs of neovascularization was noted on examination today and explained to the patient. No treatment is necessary at this time. The patient was instructed to call with new floaters or vision changes. Discussed ocular and systemic benefits of blood sugar control as well as the importance of follow up compliance from a retinal standpoint with the PCP/Custodial Operations Manager. Appropriate follow up with primary eye student career development specialist was recommended. Related to Type 2 diab w mild nonprlf diabetic rtnop w/o macular edema - Return in 1 year w radha Decker for follow up exam with OCT.. Related to Type 2 diab w mild nonprlf diabetic rtnop w/o macular edema Type 2 diab w mild n onprlf diabetic rtnop w/o macular edema - Discussed blood sugar control. Related to Type 2 diab w mild nonprlf diabetic rtnop w/o macular edema - The progression of cataracts was noted on examination today and discussed with the patient. It is reasonable from a retinal standpoint that the patient return to their referring physician for further evaluation of the cataracts. Related to Age-related nuclear cataract, bilateral - Will continue to monitor. 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 No treatment is necessary at this time. Will continue to monitor. The patient was instructed to call with new floaters or vision changes. Discussed ocular and systemic benefits of blood sugar control as well as the importance of follow up compliance from a retinal standpoint and with the PCP/Custodial Operations Manager. Diabetic retinopathy book given to patient. Related to Background diabetic retinopathy - Discussed ocular a nd systemic benefits of blood sugar control as well as the importance of follow up compliance from a retinal standpoint and with the PCP/Custodial Operations Manager. Related to Diabetes with ophthalmic manifestations, type II o - Return in [address] Smith for follow up exam with OCT. Related to Diabetes with ophthalmic manifestations, type II o - Advised patient to keep all follow up appointments with Dr. Hardy. Related to Senile nuclear sclerosis - Posterior vitreous detachment was again noted on examination today and explained to the patient. There is no evidence of retinal pathology. All signs and symptoms of retinal detachment and tears were discussed in detail. The patient was instructed to call the office immediately if any symptoms are noted. Related to Vitreous degeneration - Posterior vitreous detachment was again noted on examination today and explained to the patient. There is no evidence of retinal pathology. All signs and symptoms of retinal detachment and tears were discussed in detail. The patient was instructed to call the office immediately if any symptoms are noted. Related to Vitreous degeneration - Advised patient to keep all follow up appointments with Dr. Hardy. Related to Senile nuclear sclerosis - Will continue to monitor. Rela angely to Secondary pigmentary degeneration of retina - Discussed ocular a nd systemic benefits of blood sugar control as well as the importance of follow up compliance from a retinal standpoint and with the PCP/Custodial Operations Manager. Related to Diabetes with ophthalmic manifestations, type II o - Return in [address] Smith for follow up and OCT. Related to Diabetes with ophthalmic manifestations, type II o - Background Diabeti c Retinopathy without signs of neovascularization was again noted on examination today and explained to the patient. No treatment is necessary at this time. Will continue to monitor. The patient was instructed to call with new floaters or vision changes. Discussed ocular and systemic benefits of blood sugar control as well as the importance of follow up compliance from a retinal standpoint and with the PCP/Custodial Operations Manager. Diabetic retinopathy book given to patient. Related to Background diabetic retinopathy Diabetes with ophtha lmic manifestations, type II Condition: established. - Discussed ocular and systemic benefits of blood sugar control as well as the importance of follow up compliance from a retinal standpoint and with the PCP/Custodial Operations Manager. Related to Diabetes with ophthalmic manifestations, type II o - Return in 1 year w [facility] Dr. Smith for follow up exam and OCT. 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 - Will continue to monitor. 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 - Will continue to monitor. Related to Macular cyst, hole, or pseudohole of retina Background diabetic retinopathy OU Condition: mild, chronic, stable. - Background Diabetic Retinopathy without signs of neovascularization was again noted on examination today and explained to the patient. No treatment is necessary at this time. Will continue to monitor. The patient was instructed to call with new floaters or vision changes. Discussed ocular and systemic benefits of blood sugar control as well as the importance of follow up compliance from a retinal standpoint and with the PCP/Custodial Operations Manager. Related to Background diabetic retinopathy Retinal hemorrhage O U Condition: established, stable. - Will continue to monitor. 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 - Advised patient to keep all follow up appointments with Dr. Hardy. Related to Senile nuclear sclerosis [facility] Work Phone: [phone] Telephone encounter Note* Telephone Encounter - Grayson Hernandez MD - 06/04/2024 5:46 PM EST Called [facility]. This is been going on for 3-4 weeks but is worsening. They did remove the rings in her watch. It isbilateral in nature. She has no more short of breath than usual. Reviewed her last chemistry profile from April. Will increase The furosemide by adding in 1/2 tablet before supper for a week and he will give me an update next week. [facility] [id number] Miscellaneous Notes* Telephone Encounter - Grayson Hernandez MD - 06/04/2024 5:46 PM EST Called Fabiola. This is been going on for 3-4 weeks but is worsening. They did remove the rings in her watch. It isbilateral in nature. She has no more short of breath than usual. Reviewed her last chemistry profile from April. Will increase The furosemide by adding in 1/2 tablet before supper for a week and he will give me an update next week. * Telephone Encounter - Maria Dolores Hare - 06/04/2024 9:49 AM EST Howard called, he stated that Katelyn's hands have been very swollen. Her left hand is worse than the right. He had her take her rings off and had a struggle getting them off. He is not sure what to do but wanted to run it by Dr. Hernandez. documented in this encounterHCA [facility] [id number] Telephone encounter Note* Telephone Encounter - Maria Dolores Hare - 06/04/2024 9:49 AM EST Howard called, he stated that Katelyn's hands have been very swollen. Her left hand is worse than the right. He had her take her rings off and had a struggle getting them off. He is not sure what to do but wanted to run it by Dr. Hernandez. [facility] [id number] Telephone encounter Note* Telephone Encounter - Grayson Hernandez MD - 05/03/2024 3:21 PM EST Shannen, Can you call Howard Tuesday or Tuesday next week and check on her. He described a somewhat acute worsening of her condition and she did have fall. After some discussion she could not use the bathroom so we did not have a urinalysis and we agreed on a trial of treatment for possible UTI since she has had these before. I did ask him to call us back next week but I am suspicious he will forget. If she does not improve I would like to decrease the Xanax XR from 1 mg tablet down to 0.5 mg tablet. I will need to send that in his it is a controlled substance. [facility] [id number] Miscellaneous Notes* Telephone Encounter - Grayson Hernandez MD - 05/03/2024 3:21 PM EST Shannen, Can you call Howard Tuesday or Tuesday next week and check on her. He described a somewhat acute worsening of her condition and she did have fall. After some discussion she could not use the bathroom so we did not have a urinalysis and we agreed on a trial of treatment for possible UTI since she has had these before. I did ask him to call us back next week but I am suspicious he will forget. If she does not improve I would like to decrease the Xanax XR from 1 mg tablet down to 0.5 mg tablet. I will need to send that in his it is a controlled substance. documented in this encounterHCA Midwest [id number] History of Present illness Narrative* Grayson Hernandez MD - 04/30/2024 3:00 PM EST Images from the original note were not included. Patient ID: Eleanor Mcclain is a 73 y.o. female who presents for: Pt states she has fallen multiple times starting 04/20 and progressively getting worse. A few times it has been out of bed before she even completely gets up. She has hit her head one fall on04/22 with no LOC. He states she is a lot weaker than she was previously prior to the falls and she is also a lot more fatigued. She is sleeping a lot for as tired as she is. He also states she seems to be very spacey . While he was explaining to me what was going on she stated twice that she fell this morning. Review of Systems Constitutional: Positive for fatigue. Negative for chills and fever. Respiratory: Negative for cough, shortness of breath and wheezing. Cardiovascular: Negative for chest pain and palpitations. Gastrointestinal: Negative for abdominal pain. Genitourinary: Negative for frequency and urgency. Neurological: Positive for weakness. Negative for light-headedness and headaches. Psychiatric/Behavioral: Positive for confusion. Objective The patient in no acute distress, But is extremely flat and sometimes staring off into space. I wasable to elicit a smile or 2. Word formation is slower than usual for her. The patient has Poor to fair eye contact which is rather unusual for her Heart is regular rate and rhythm Lungs are clear to auscultation She is able to follow basic commands. With the 's assistance and that of a walker she is able to get out of the chair and very slowly ambulate. Visit Vitals Ht 5' 2.5 Wt 139 lb BMI 25.02 kg/m OB Status Hysterectomy Smoking Status Never BSA 1.67 m Allergies Allergen Reactions Latex Anaphylaxis Other Reaction(s): Anaphylactic Shock, nose runs, eyes swell, itching Other reaction(s): nose runs, eyes swell, itching, unknown Eyes swell shut, rash Eyes swell shut, rash Eyes swell shut, rash Current Outpatient Medications on File Prior to Visit Medication Sig Dispense Refill ALPRAZolam XR (Xanax XR) 1 MG 24 hr tablet Take 1 tablet (1 mg) by mouth in the morning. Do not crush, chew, or split.. 30 tablet 5 apixaban (Eliquis) 5 MG tablet Take 1 tablet by mouth in the morning and 1 tablet before bedtime. ARIPiprazole (Abilify) 2 MG tablet Take 1 tablet (2 mg) by mouth Daily 90 tablet 1 aspirin 81 MG EC tablet Take 81 mg by mouth in the morning. atorvastatin (Lipitor) 40 MG tablet Take 1 tablet (40 mg) by mouth Daily 90 tablet 1 Blood Glucose Monitoring Suppl (ONE TOUCH ULTRA 2) w/Device kit USE ONCE DAILY TO CHECK BLOOD SUGAR. calcium citrate 250 MG tablet Take 1 tablet by mouth 1 (one) time each day. carvedilol (Coreg) 6.25 MG tablet Take 6.25 mg by mouth in the morning and 6.25 mg in the evening. Take with meals. cholecalciferol (Vitamin D-3) 125 MCG (5000 UT) capsule Take 5,000 Units by mouth in the morning. dilTIAZem CD (Cardizem CD) 180 MG 24 hr capsule Take 1 capsule (180 mg) by mouth Daily 90 capsule 1 donepezil (Aricept) 10 MG tablet Take 2 tablets (20 mg) by mouth at bedtime 180 tablet 1 dulaglutide (Trulicity) 0.75 MG/0.5ML solution pen-injector Inject 0.75 mg under the skin once a week. On Tuesday DULoxetine (Cymbalta) [address] capsule Take 1 capsule (60 mg) by mouth Daily 90 capsule 1 famotidine (Pepcid) 20 MG tablet Take 20 mg by mouth Daily as needed for indigestion or heartburn. furosemide (Lasix) 40 MG tablet Take 1 tablet (40 mg) by mouth Daily 90 tablet 1 glucose blood (Servato CorpTouch Ultra) test strip 1 each by Other route Daily 100 each 3 ipratropium (Atrovent) 0.06 % nasal spray Administer 2 sprays into each nostril in the morning and 2 sprays before bedtime. 15 mL 0 Lancets (Servato CorpTouch Delica Plus [id number]) misc 1 Lancet Daily 100 each 3 levothyroxine (Synthroid, Levoxyl) 88 MCG tablet Take 1 tablet (88 mcg) by mouth in the morning. 90tablet 3 magnesium 200 MG tablet Take 200 mg by mouth in the evening. ondansetron ODT (Zofran-ODT) 4 MG disintegrating tablet Take 4 mg by mouth Daily as needed for nausea or vomiting. Sennosides 8.6 MG capsule as needed at bedtime. triamcinolone (Kenalog) 0.1 % cream Apply topically Daily 90 g 0 No current facility-administered medications on file prior to visit. 1. Multiple falls This is somewhat abnormal for her. She has had couple of falls over time but nothing like her 's describing in the recent past. Half a dozen or so. Some of them are stumbles and not true fallsto ground. 2. Generalized weakness This is been an ongoing problem but seems to have worsened over the last several days. He notes specifically that she is sleeping more but we have also noticed that over time as the dementia progresses. 3. Disorientation She has less organized and oriented in the visit today and I think that is with Howard is trying to tell me. He himself gets confused sometimes. 4. 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 5. Acute cystitis without hematuria (Primary) We did have a discussion about how aggressive to be. She has had mental status changes associated with UTI previously. While she is specifically asymptomatic, I am still suspicious of this. She was unable to give us a urine sample. Howard and I have mutually agreed to a trial of treatment with antibiotic therapy. He understands that over the upcoming weekend if things worsen he is to take her directly to the emergency room. If it gets bad enough for he does not feel safe with that he has to activate 911. I have asked him to give us a call back next week. - cefuroxime (Ceftin) 250 MG tablet; Take 1 tablet (250 mg) by mouth in the morning and 1 tablet (250 mg) before bedtime. Do all this for 7 days. Dispense: 14 tablet; Refill: 0 6. Overweight (BMI 25.0-29.9) documented in this [facility]11-19-2024 Radiology Diagnostic study [facility] [place] [address] [place] [address] Ultrasound Report Signed Patient: Eleanor Mcclain MR#: [id number] : 1950 Acct:[id number] Age/Sex: 73 / F ADM Date: 4 Loc: Room: Type: [facility] Attending Dr: Morgan Womack MD Ordering Provider: Morgan Womack MD Date of Service: 04/10/24 US/US renal BI: N25.81 - Secondary hyperparathyroidism of renal origin Copies to: Morgan Womack MD~ BILATERAL RENAL AND BLADDER ULTRASOUND CLINICAL HISTORY: Stage IV chronic kidney disease. COMPARISON: None FINDINGS: Estimation of renal size is approximately 10.19 cm on the right and 8.62 cm on the left. No contourdeforming mass, shadowing stone or hydronephrosis. The urinary bladder is partially distended with a volume of 119.52 ml. No shadowing stone or focal lesion. No significant postvoid residual. US/US renal BI IMPRESSION: No acute findings. Impression dictated by: Shant Pastrana Jr., DGinaOGina04/10/2024 3:04 PM Dictation Location: [place] [address] Tech: [facility] Transcribed By: CATA 04/10/24 1504 Dictated By: Shant Pastrana Jr, DO 04/10/24 1503 Signed By: 04/10/24 1504 [facility]10-17-2024 Evaluation note* Diagnosis Onset Date Resolution Status Admit Date Anemia of renal disease acute O ctober 2023 1:21pm CKD (chronic kidney disease) stage 4, GFR 15-29 ml/min acute February 1:21pm Hypertensive chronic kidney disease with stage 1 through stage 4 chronic ki acute March 08 1:21pm Secondary hyperparathyroidism acute March 08, 2024 1:21pm Type 2 diabetes mellitus wit h diabetic chronic kidney disease acute March 08, 2024 1:21pm [facility] Work Phone: 1([phone]) 565-213010-01-2024 History of Present illness Narrative* Grayson Hernandez MD - 02/21/2024 3:30 PM EDT Images from the original note were not included. Patient ID: Eleanor Mcclain is a 73 y.o. female who presents for: Anxiety Patient is here for evaluation of anxiety. He/She has the following anxiety symptoms: difficulty concentrating, fatigue, irritable. Onset of symptoms was approximately several years ago. Symptoms have been gradually worsening since that time. Her son and his have split up which is causing somestressors. He/She denies current suicidal and homicidal ideation. Family history significant for nopsychiatric illness.Possible organic causes contributing are: none. Previous treatment includes medication Xanax and abilify and duloxetine . He/She complains of the following medication side effects: none. Onset of symptoms has been several years. How many hours of sleep is patient getting on average night: 12 hours plus naps How long does it take patient to get to sleep each night: varies Does he/she have trouble falling asleep: no Does he/she have trouble maintaining sleep: no Does patient have good sleep hygiene: yes History of Present Illness He/she is accompanied by spouse. Primary caregiver is patient and . Patient lives with theirspouse. The family and the patient identify problems with changes in short and manager long term care memory. Family and patient report problems with agitation. Family and patient are concerned about none becausehusbands does everything , however, they are not concerned about driving and cooking. Review of Systems Constitutional: Positive for fatigue. Negative for appetite change. Neurological: Negative for light-headedness and headaches. Psychiatric/Behavioral: Positive for sleep disturbance. Negative for agitation, behavioral problemsand suicidal ideas. The patient is nervous/anxious. Objective Appearance: Well-groomed, in no acute distress Abnormal body movements: None Affect: Appropriate and appears to be Mildly constricted today Attention: fair Attitude: Cooperative Degree of awareness of surroundings: Grossly within normal limits Impulse control: Appears to be fair Insight: Appears to be fair Fund of knowledge; adequate Judgment: Appears to be adequate Perceptual disorders: No perceptual disorders noted Psychomotor activity: Within normal range Speech: Clear, somewhat monotone in variability and rate Thought content: Unremarkable Visit Vitals Ht 5' 2.5 Wt 139 lb BMI 25.02 kg/m OB Status Hysterectomy Smoking Status Never BSA 1.67 m PDMP reviewed, Grayson Hernandez MD on 02/21/2024 4:01 PM Appears as expected. COMM reviewed Allergies Allergen Reactions Latex Anaphylaxis Other Reaction(s): Anaphylactic Shock, nose runs, eyes swell, itching Other reaction(s): nose runs, eyes swell, itching, unknown Eyes swell shut, rash Eyes swell shut, rash Eyes swell shut, rash Current Outpatient Medications on File Prior to Visit Medication Sig Dispense Refill ALPRAZolam XR (Xanax XR) 1 MG 24 hr tablet Take 1 tablet (1 mg) by mouth in the morning. Do not crush, chew, or split.. 30 tablet 0 apixaban (Eliquis) 5 MG tablet Take 1 tablet by mouth in the morning and 1 tablet before bedtime. ARIPiprazole (Abilify) 2 MG tablet Take 1 tablet (2 mg) by mouth Daily 90 tablet 1 aspirin 81 MG EC tablet Take 81 mg by mouth in the morning. atorvastatin (Lipitor) 40 MG tablet Take 1 tablet (40 mg) by mouth Daily 90 tablet 1 Blood Glucose Monitoring Suppl (ONE TOUCH ULTRA 2) w/Device kit USE ONCE DAILY TO CHECK BLOOD SUGAR. calcium citrate 250 MG tablet Take 1 tablet by mouth 1 (one) time each day. carvedilol (Coreg) 6.25 MG tablet Take 6.25 mg by mouth in the morning and 6.25 mg in the evening. Take with meals. cholecalciferol (Vitamin D-3) 125 MCG (5000 UT) capsule Take 5,000 Units by mouth in the morning. dilTIAZem CD (Cardizem CD) 180 MG 24 hr capsule Take 1 capsule (180 mg) by mouth Daily 90 capsule 1 donepezil (Aricept) 10 MG tablet Take 2 tablets (20 mg) by mouth at bedtime 180 tablet 1 dulaglutide (Trulicity) 0.75 MG/0.5ML solution pen-injector Inject 0.75 mg under the skin once a week. On Tuesday DULoxetine (Cymbalta) [address] capsule Take 60 mg by mouth in the morning. famotidine (Pepcid) 20 MG tablet Take 20 mg by mouth Daily as needed for indigestion or heartburn. furosemide (Lasix) 40 MG tablet Take 1 tablet (40 mg) by mouth Daily 90 tablet 1 glucose blood (Sorbent Greenuch Ultra) test strip 1 each by Other route Daily 100 each 3 ipratropium (Atrovent) 0.06 % nasal spray Administer 2 sprays into each nostril in the morning and 2 sprays before bedtime. 15 mL 0 Lancets (Servato CorpTouch Delica Plus [id number]) misc 1 Lancet Daily 100 each 3 levothyroxine (Synthroid, Levoxyl) 88 MCG tablet Take 1 tablet (88 mcg) by mouth in the morning. 90tablet 3 magnesium 200 MG tablet Take 200 mg by mouth in the evening. ondansetron ODT (Zofran-ODT) 4 MG disintegrating tablet Take 4 mg by mouth Daily as needed for nausea or vomiting. Sennosides 8.6 MG capsule as needed at bedtime. triamcinolone (Kenalog) 0.1 % cream Apply topically Daily 90 g 0 [DISCONTINUED] glipiZIDE (Glucotrol) 5 MG tablet Take Glipizide 5mg and Glipizide 10mg together (=15mg total) twice a day, in am and evening before meal 180 tablet 1 [DISCONTINUED] ALPRAZolam XR (Xanax XR) 1 MG 24 hr tablet Take 1 tablet (1 mg) by mouth in the morning. Do not crush, chew, or split.. 30 tablet 2 [DISCONTINUED] glipiZIDE (Glucotrol) 10 MG tablet Take Glipizide 10mg and Glipizide 5mg together (=15mg total) twice a day, in am and evening before meal (Patient not taking: Reported on 02/21/2024) 180 tablet 1 [DISCONTINUED] Shingrix 50 MCG/0.5ML vaccine Inject 50 mcg into the shoulder, thigh, or buttocks 1 (one) time No current facility-administered medications on file prior to visit. 1. Chronic organic brain syndrome Chronic problem that is reported by her and her to be relatively stable at this point. In prescribing a renewal to their current medication, consideration of the following encompasses moderate decision making; the current prescriptions and supplements, the current allergies and medication intolerances, current medical conditions, and potential drug interactions. Any changes to risks, benefits, and reason for renewing their current medication due to the above were discussed. The patient was given a chance to ask questions today and all questions were answered. The patient is to contact us if any other questions arise or if any problems occur. (Utilizing the original guidelines or the 2020 office/outpatient code guidelines for selecting the level of E/M service, In both sets of guidelines, prescription drug management appears in the moderate medical decision making (MDM) row. Neither the original guidelines nor the new guidelines state that a new prescription or change is needed in order to credit prescription drug management) - donepezil (Aricept) 10 MG tablet; Take 2 tablets (20 mg) by mouth at bedtime Dispense: 180 tablet; Refill: 1 2. Anxiety associated with depression Chronic problem, stable, if anything she seems to be doing a little bit better with the combinationof medications. I specifically note the patient has one or more high risk medications that is a chronic problem that specifically increases complexity of decision making and complicates all prescribing including prescription renewal consistent with a moderate or complex degree of decision making. A high-risk medicine is one that may cause serious health problems if not taken the correct way, ortaken with another drug or food item that it may interact with. If the high-risk medication includes a controlled or reportable substance, The OARRS and NARX scores were reviewed and seem to be consistent with their prescribing pattern. The Current Opioid Misuse Measure (COMM) is reviewed and there is no evidence of aberrant behavior or abuse. Treatment regimens are increasingly complex and potentially harmful, and people with high risk medications need regular review and prescribing optimization. - DULoxetine (Cymbalta) [address] capsule; Take 1 capsule (60 mg) by mouth Daily Dispense: 90 capsule; Refill: 1 - ALPRAZolam XR (Xanax XR) 1 MG 24 hr tablet; Take 1 tablet (1 mg) by mouth in the morning. Do not crush, chew, or split.. Dispense: 30 tablet; Refill: 5 3. Agitation Chronic problem that is improved. She was also having delusions if not some hallucinations when shewas extremely agitated. The aripiprazole is treating this as well as cross treating the depression as an adjunctive medication. - ARIPiprazole (Abilify) 2 MG tablet; Take 1 tablet (2 mg) by mouth Daily Dispense: 90 tablet; Refill: 1 Chronic problem The patient meets the criteria for polypharmacy; 5 or more prescriptions or multi-morbidity definedas 5 or more diagnoses. Polypharmacy can significantly increase the risk of preventable adverse drug events and negatively impact adherence. Consideration of diverse factors such as clinician agreement, patient perspective,and de-prescribing, as appropriate can improve patient outcomes while simplifying care. This requires longitudinal monitoring as there is at least a moderate risk of morbidity and requires at least amoderate degree of evaluation and management. documented in this encounterH[facility] [id number] History of Present illness Narrative* Shannen Velazquez RN - 02/10/2024 10:00 AM EDT <February 10, 2024, 10:01 - Shannen Velazquez RN> received call from pt's , Howard that he received a call from [facility], that they are unable to fill medication, pt was on auto refill but needs to see the doctor before it can be filled. Called Adrian, discussed Rx's needed. <February 10, 2024, 10:12 - Shannen Velazquez RN> Called Howard, notified that CM spoke to [facility] pharmacy. It was Atorvastatin that was needed. Cardizem is due also. Will request rx's * Grayson Hernandez MD - 02/10/2024 10:00 AM EDT RX sent documented in this [facility]09-03-2024 Miscellaneous Notes* Telephone Encounter - Grayson Hernandez MD - 01/24/2024 1:37 PM EDT RX sent documented in this [facility]09-03-2024 Telephone encounter Note* Telephone Encounter - Grayson Hernandez MD - 01/24/2024 1:37 PM EDT RX [facility] [id number] History of Present illness Narrative* Larissa Weathers RN - 09/27/2023 11:22 AM EDT 1122 - Lexiscan started. C/O chest discomfort on the left side. No other complaints. 1124 - C/O feeling shaky and short of breath. C/O 5/10 pain 1127 - Tolerating well, continues to c/o shortness of breath, pain improving. 1128 - C/O tingling to left arm and both hands 1131 - Rating chest pain 4/10, no other complaints 1133 - Rates chest pain 3/10, pt vague with her symptoms, has difficulty explaining what she is feeling 1135 - States her breathing feels easier, rates pain 2/10, states it is improving. 1139 - Pt states she feels like she is back to baseline. States her shortness of breath is about where it has been lately. 1140 - Lexiscan completed. Pt arti procedure well, snack and beverage provided. [facility] History of Present illness Narrative* Tameka Adan RN - 09/01/2023 3:09 PM EDT All discharge instructions given. All questions answered at this time. All belongings returned. * Tameka Adan RN - 09/01/2023 3:08 PM EDT IV Sedation Discharge Criteria Inpatients must meet Criteria 1 through 7. All other patients are either YES or N/A. If a NO is chosen then Surgeon must be notified. 1. Minimum 30 minutes after last dose of sedative medication, minimum 120 minutes after last dose of reversal agent. Yes 2. Systolic BP stable within 20 mmHg for 30 minutes & systolic BP between 90 & 180 or within 10 mmHg of baseline. Yes 3. Pulse between 60 and 100 or within 10 bpm of baseline. Yes 4. Spontaneous respiratory rate >/= 10 per minute. Yes 5. SaO2 >/= 95 or >/= baseline. Yes 6. Able to cough and swallow or return to baseline function. Yes 7. Alert and oriented or return to baseline mental status. Yes 8. Demonstrates controlled, coordinated movements, ambulates with steady gait, or return to baseline activity function. Yes 9. Minimal or no pain or nausea, or at a level tolerable and acceptable to patient. Yes 10. Takes and retains oral fluids as allowed. Yes 11. Procedural / perioperative site stable. Minimal or no bleeding. Yes 12. If GI endoscopy procedure, minimal or no abdominal distention or passing flatus. N/A 13. Written discharge instructions and emergency telephone number provided. Yes 14. Accompanied by a responsible adult. Yes documented in this [facility] Discharge instructions* Discharge Instructions* Tameka Adan RN - 09/01/2023 12:33 PM EDT Images from the original note were not included. Sedation for a Medical Procedure: LOVE after-care Instructions Your Care Instructions For a minor procedure, you will get a sedative to help you relax. This drug will make you sleepy. It is usually given in a vein (by IV). A spray was also used to numb the throat. Your throat may feel may feel sore. Common side effects from sedation: You will feel sleepy. Rest until the sedation has worn off. Nausea and vomiting is common and usually does not last long. Feeling tired. Follow-up care is a mendoza part of your treatment and safety. Be sure to make and go to all appointments, and call your doctor if you are having problems. It's also a good idea to know your test results and keep a list of the medicines you take. How can you care for yourself at home? Activity Don't do anything for 24 hours that requires attention to detail or until the effects of sedation completely wear off. Do not drive or operate any machinery until the medicine wears off and you can think clearly and react easily. Do not drink alcohol for 24 hours after procedure. Rest when you feel tired. Getting enough sleep will help you recover. Diet You can clear liquids two hours after last throat spray, which will be at 4:00PM. You may eat soft foods three hours after throat spray, which will be at 5:00PM. Drink plenty of fluids (unless your doctor tells you not to). Also, try to eat just soft foods for next few days until throat irritation is gone. Don't drink alcohol for 24 hours. Medicines You may use Cepacol lozenges or sucrets for the next few days until throat feels better. Be safe with medicines. Read and follow all instructions on the label. If the doctor gave you a prescription medicine for pain, take it as prescribed. If you are not taking a prescription pain medicine, ask your doctor if you can take an cnsr-qwh-johrpjg medicine. If you think your pain medicine is making you sick to your stomach: Take your medicine after meals (unless your doctor has told you not to). Ask your doctor for a different pain medicine. When should you call for help? Call 911 anytime you think you may need emergency care. For example, call if: You have chest pain or pressure. This may occur with: Sweating. Shortness of breath. Nausea or vomiting. Pain that spreads from the chest to the neck, jaw, or one or both shoulders or arms. A fast or uneven pulse. After calling 911, the waxing machine operator may tell you to chew 1 adult-strength or 2 to 4 low-dose aspirin. Wait for an ambulance. Do not try to drive yourself. You have signs of a stroke. These may include: Sudden numbness, paralysis, or weakness in your face, arm, or leg, especially on only one side of your body. New problems with walking or balance. Sudden vision changes. Drooling or slurred speech. New problems speaking or understanding simple statements, or feeling confused. A sudden, severe headache that is different from past headaches. You vomit blood or what looks like coffee grounds. You pass maroon or very bloody stools. You passed out (lost consciousness). Call your doctor now or seek immediate medical care if: You feel dizzy or lightheaded, or you feel like you may faint. Your heart rate becomes irregular. You have shortness of breath. You have any unusual bleeding, such as: Bruises or blood spots under the skin. A nosebleed that you cannot stop. Bleeding gums when you brush your teeth. Blood in your urine. Vaginal bleeding when you are not having your period, or heavy period bleeding. Your stools are black and tarlike or have streaks of blood. Watch closely for any changes in your health, and be sure to contact your doctor if: You do not get better as expected. Where can you learn more? Go to [email or web address] and sign in to your [employer] account. Enter G817 in the Search Health Information box to learn more about Sedation for a Medical Procedure: Care Instructions. If you do not have an account, please click on the Sign Up Now link. [employer]. Care instructions adapted under license by [employer] [facility]. This care instruction is for use with your licensed healthcare professional. If you have questions about amedical condition or this instruction, always ask your healthcare professional. [employer] disclaims any warranty or liability for your use of this information. Content Version: 10.6.022380; Current as of: January 29, 2014 documented in this encounterB[facility] Miscellaneous Notes* Telephone Encounter - Portia Osorio - 07/04/2023 8:14 AM EST What is the reason for the call? Patients needs to cancel the appt for tomorrow and reschedule. They have other commitments at this time. What is a good call back number? Martha- [phone] * Telephone Encounter - Beth Flores CMA - 07/04/2023 8:14 AM EST Called Martha back to resched tmrw's apt. Unavailable; LVM and call back number * Telephone Encounter - Larissa Kim - 07/04/2023 8:14 AM EST Spoke with Martha, he spoke with pcp and that doctor is going to take responsibility for the patients care/treatment needed and no longer wishes to see Dr Monroy. [facility] Telephone encounter Note* Telephone Encounter - Portia Osorio - 07/04/2023 8:14 AM EST What is the reason for the call? Patients needs to cancel the appt for tomorrow and reschedule. They have other commitments at this time. What is a good call back number? Martha- [phone] [facility] Telephone encounter Note* Telephone Encounter - Beth Flores CMA - 07/04/2023 8:14 AM EST Called Martha back to resched tmrw's apt. Unavailable; LVM and call back number [facility] Telephone encounter Note* Telephone Encounter - Larissa Kim - 07/04/2023 8:14 AM EST Spoke with Martha, he spoke with pcp and that doctor is going to take responsibility for the patients care/treatment needed and no longer wishes to see Dr Monroy. [facility]01-[facility] Miscellaneous Notes* Telephone Encounter - Alma Hankins RN - 05/30/2023 10:49 AM EST Per May 2023 recall, patient is due for follow up appointment with Dr. Monroy. Please call to schedule with Dr. Monroy or SCHUYLER. * Telephone Encounter - Larissa Kim - 05/30/2023 10:49 AM EST Called patients mobile (belongs to spouse) and left VM Called patients home and left VM * Telephone Encounter - Nidhi Nicolas - 05/30/2023 10:49 AM EST Patient's nurse called to schedule appointment. Below is the best contact for the patient. Best Contact: * Telephone Encounter - Larissa Kim - 05/30/2023 10:49 AM EST Spoke with patients spouse and scheduled appt [facility] Telephone encounter Note* Telephone Encounter - Alma Hankins RN - 05/30/2023 10:49 AM EST Per May 2023 recall, patient is due for follow up appointment with Dr. Monroy. Please call to schedule with Dr. Monroy or SCHUYLER. [facility] sliceX [id number] Telephone encounter Note* Telephone Encounter - Larissa Kim - 05/30/2023 10:49 AM EST Called patients mobile (belongs to spouse) and left VM Called patients home and left VM [facility] [id number] Telephone encounter Note* Telephone Encounter - Nidhi Nicolas - 05/30/2023 10:49 AM EST Patient's nurse called to schedule appointment. Below is the best contact for the patient. Best Contact: [facility] [id number] Telephone encounter Note* Telephone Encounter - Larissa Kim - 05/30/2023 10:49 AM EST Spoke with patients spouse and scheduled appt [facility] [id number] Evaluation note* Encounter Date Diagnosis Assessment Notes Treatment Notes Treatment Clinical Notes Jun, Contact with and (suspected) exposure to other viral communicable diseases (ICD-10 - Z20.828) Jun, Walking pneumonia (ICD-10 - J18.9) Take medications as directed. Rest and increase fluid intake. Take meds with food to prevent stomach upset. Use inhaler as needed for coughing spells and SOB. It is better to use inhaler a few times a day over the next 2-3 days. Follow up with primary care provider if symptoms do not improve with treatment plan, although it may take a few weeks for the cough to go away [facility] Other 04-18-2022 History of Present illness Narrative* Ambika Romero RCP - 09/07/2021 9:30 AM EDT The patient was educated on the use of an event monitor. The patient's comprehension was high. The patient was able to verbalize recall. The patient was instructed on how and when to return the monitor. [facility] Phone: [phone] Evaluation note* Encounter Date Diagnosis Assessment Notes Treatment Notes Treatment Clinical Notes May, Other low back pain (ICD-10 - M54.59) May, Muscle spasm of back (ICD-10 - M62.830) Patients primary complaint today is mid thoracic and upper lumbar back pain. Her pain appears to have a muscular componet upon exam. I will prescribe the patient a short term suppply of Flexeril as needed for muscle spasms. In the meantime, she will continue taking her current medication regimen of Oxycodone for severe breakthrough pain. Of note, her previous lower lumbar facet ablation appears to have provided reasonable relief in regards to her lower lumbar pain, her current symptoms appear to be higher than this region. May, Post herpetic neuralgia (ICD-10 - B02.29) Patient continues to complain of severe pain in her lower lumbar region and left thigh secondary to post herpatic neuralgia. She feels her current medication regimen is no longer controlling her pain symptoms. May, Chronic pain (ICD-10 - G89.29) May, Chronic, continuous use of opioids (ICD-10 - F11.90) Patient has a continued need for Percocet 5-325 up to twice daily as needed, she has been using this on a very limited basis since her procedure for severe breakthrough pain. An OARRS report was processed and reviewed and shows no violations, as well as an opioid risk assessment being completed without concerns. She denies any significant opioid related side effects and appears to be compliant with this medication. The patient was counseled and educated regarding the risks and benefits of manager long term care opioid use. She understands the associated risks with this medication and agrees that it provides reasonable benefit in regards to her pain control and level of function. This medication was filled today. May, Other Above note writ ten by Michael Houston CMA, Childcare Center Administrator. Edited and approved by Dr. Martha Rendon MD. [facility] Other 02-01-2020 History general Narrative - Reported* Type Description Date Medical History Hypertension Medical History Diabetes Medical History Hypokalemia Surgical History hysterectomy Surgical History cholecystectomy Surgical History triple bypass, valve replacemen t 06/2019 Hospitalization History see above [facility] Other 02-01-2020 History general Narrative - Reported* Type Description Date Medical History Hypertension Medical History Diabetes Medical History Hypokalemia Surgical History hysterectomy Surgical History cholecystectomy Surgical History triple bypass, valve replacemen t 06/2019 Surgical History cataract removal 2022 Hospitalization History see above Tag'By Other Consult note* Clinical Note Date No Information [facility] Work Phone: Discharge summary* Clinical Note Date No Information [facility] Work Phone: Evaluation note* Diagnosis Hypertension, unspecified type Hyperlipidemia, unspecified hyperlipidemia type Other specified diabetes mellitus with other specified complication, unspecified whether halfway insulin use (HCC) Vitamin D deficiency disease Unspecified vitamin D deficiency documented in this encounter [facility] Phone: evaluation note* Diagnosis Hypertension, unspecified type Hyperlipidemia, unspecified hyperlipidemia type Other specified diabetes mellitus with other specified complication, unspecified whether halfway insulin use (HCC) Vitamin D deficiency disease Unspecified vitamin D deficiency documented in this encounter [employer] Phone: evaluation note* Diagnosis Systolic murmur Undiagnosed cardiac murmurs Moderate mitral regurgitation Mitral valve disorders Severe aortic stenosis Aortic valve disorders documented in this encounter [employer] Phone: evaluation note* Diagnosis Palpitations documented in this encounter [facility] Work Phone: evaluation note* Diagnosis Diastolic congestive heart failure, NYHA class 1, unspecified congestive heart failure chronicity ([facility]/HCC) [facility] Diagnosis Mild mitral stenosis by prior echocardiogram- Primary Mitral stenosis Chronic a-fib ([facility]) Atrial fibrillation documented in this encounter [facility]* Diagnosis SOB (shortness of breath) Shortness of breath documented in this encounter [facility]* Diagnosis Chronic organic brain syndrome Unspecified nonpsychotic mental disorder following organic brain damage Anxiety associated with depression Dysthymic disorder Agitation Other and unspecified special symptom or syndrome, not elsewhere classified documented in this encounter [facility]* Diagnosis Acute cystitis without hematuria- Primary Multiple falls Generalized weakness Disorientation Other general symptoms Sequela, post-stroke Overweight (BMI 25.0-29.9) Overweight documented in this encounter [facility]* Diagnosis Diastolic congestive heart failure, NYHA class 1, unspecified congestive heart failure chronicity ([facility]/HCC) documented in this [facility]* Diagnosis Mixed hyperlipidemia ([facility]) Mixed hyperlipidemia documented in this [facility]* Diagnosis Primary hypertension ([facility]/HCC)- Primary Unspecified essential hypertension Mixed hyperlipidemia ([facility]) Mixed hyperlipidemia documented in this [facility]* Diagnosis Anxiety associated with depression Dysthymic disorder documented in this [facility]* Diagnosis Acquired hypothyroidism ([facility]) Unspecified hypothyroidism Benign essential hypertension ([facility]) Essential hypertension, benign documented in this [facility]* Diagnosis Diastolic congestive heart failure, NYHA class 1, unspecified congestive heart failure chronicity ([facility]/HCC) documented in [facility]* Diagnosis Primary hypertension ([facility]/HCC)- Primary Unspecified essential hypertension Chronic diastolic congestive heart failure, NYHA class 1 ([facility]/HCC) Mixed hyperlipidemia ([facility]) Mixed hyperlipidemia Hypokalemia Hypopotassemia Hypomagnesemia Disorders of magnesium metabolism Type 2 diabetes mellitus with stage 4 chronic kidney disease, without long-term current use of insulin ([facility]) Type 2 diabetes mellitus with hyperglycemia, without long-term current use of insulin ([facility]) Polypharmacy Issue of repeat prescriptions Edema, unspecified type documented in this [facility]* Clinical Note Date No Information [facility] Work Phone: InstructionsNot on filedocumented in this encounter [facility]* Clinical Note Date No Information [facility] Work Phone: Reason for referral (narrative)* Reason For Referral No Information [facility] Work Phone: Discharge Instructions * Instructions* Ely Oneill RN - 06/06/2019 Post Procedure Site Care Instructions After an Angiogram, Peripheral Vascular Procedure, Cardiac Cath, Stent or Angioplasty. During your procedure, your doctor made an opening in your artery. There are many different ways toprevent bleeding from the puncture site. We use closure devices or apply direct manual pressure to the site. Your device was: ? Angioseal ? Starclose ? Mynx ? Perclose ? TR Band For all Procedures: Drink 1 to 2 glasses fo fluid every hour until bedtime to flush the dye used out of the kidneys. Avoid caffeine and alcohol. Do not smoke for 24 hours after the procedure. Smoking greatly increases the chances of a blood clot forming in the artery. Avoid all types of tobacco. You may feel drowsy for the next several hours if you received sedation during the procedure. Limit these activities for the rest of the day: - Do not drive or operate hazardous machinery or instruments. - Do not make important business or personal decisions or sign legal papers. Wound Care: Keep the site clean and dry for 24 hours Apply a new band-aid right away if it becomes wet You may shower after 24 hours. Gently clean the site using mild soap and water Dry the area by blotting it with a clean towel. Do not scrub the area Do not apply powders or lotions to the area. Do not rub or scratch the wound. Do not submerge the site in water for 5 days Watch for signs of infection and call your doctor if they occur - Redness - Swelling - Drainage - Temperature greater than 101 ? What to Expect With Your Groin Site: After the procedure, your groin may feel numb, but this should wear off in about one hour. Soreness and tenderness may last about one week. Possible bruising could occur and last for about 2weeks. You may develop a lump the size of a dime or quarter and this could last up to 6 weeks. ? Care instructions for Groin and Leg Closures Keep a closure device card in your wallet. If re-puncture of the artery needs to occur in the next three months, show this card to your healthcare provider. For the first 2 days if a certain activity causes pain, do not do it. No lifting over 10 pounds forone week or until the wound heals. Limit climbing stairs and excessive bending, squatting, or stooping. Do not take a tub bath, submerge or soak wound in water, for the next 5 days or until the the woundis healed. ? Care Instructions for Wrist and Arm Closures Do not lift anything heaver than 10 pounds with affected arm for 7 days. Do no twist or turn a jar lift or anything else using the affected arm for 7 days. Do not submerge the site in water, such as bathing or washing dishes for 7 days. Do not use the affected hand for any continuous work that would cause flexion or extension of your wrist for 7 days, such as painting, washing windows, or using power tools. Call your Doctor or 911 Immediately if: Bright red, pulsating bleeding, or oozing of blood occurs, that does not stop after lying flat and applying firm pressure to your groin for at least 20 minutes. Increased swelling of a new hematoma, which is a firm, raising area that forms at the site. Changes in groin/leg or wrist/hand area occur, including unusual pain, numbness, tingling, coolness, loss of sensation, and change in color or temperature. Signs of infection: Swelling at site, redness, drainage, warm to touch, fever over 101 degrees and chills, or the site does not heal. documented in this encounter* Discharge Instr - VANNESA* Aniya Goff RN - 07/24/2019 9:18 AM EST Continuity of Care Form Patient Name: Eleanor Mcclain : 1950 Admit date: 07/03/2019 Discharge date: 07-24-2019 Code Status Order: Full Code Advance Directives: Advance Care Flowsheet Documentation Date/Time Healthcare Directive Type of Healthcare Directive Copy in Chart Healthcare Agent Appointed Healthcare Agent's Name Healthcare Agent's Phone Number 07/03/19 1000 Living will Yes, copy in chart Spouse 07/03/19 0546 Yes, patient has an advance directive for healthcare treatment Living will Yes, copy in chart Spouse Martha [phone] Admitting Physician: Caro Teresa MD PCP: Grayson Hernandez MD Discharging Nurse: aniya Alvarez Hospital Unit/Room#: 1006/1006-01 Discharging Unit Phone Number: [phone] Emergency Contact: Extended Emergency Contact Information Primary Emergency Contact: DAHLIA MCCLAIN Mobile Relation: Child Secondary Emergency Contact: MARTHA MCCLAIN [address]: [address] [place] [address] Mobile Relation: Spouse Past Surgical History: Past Surgical History: Procedure Laterality Date CABG WITH AORTIC VALVE REPLACEMENT N/A 07/03/2019 CABG CORONARY ARTERY BYPASS X3; AORTIC VALVE REPLACEMENT WITH 21MM INTUITY VALVE, ON PUMP, SWAN SHAWN, LOVE performed by Caro Teresa MD at [facility] [[email or web address] CVOR CARDIAC CATHETERIZATION Bilateral 06/06/2019 Possible bypass & aortic valve replacement CHOLECYSTECTOMY COLONOSCOPY CORONARY ARTERY BYPASS GRAFT N/A 07/03/2019 CABG CORONARY ARTERY BYPASS REDO performed by Caro Teresa MD at [facility] GALLBLADDER SURGERY HC PICC POWERPICC DOUBLE 07/13/2019 HYSTERECTOMY STERNUM DEBRIDEMENT N/A 07/04/2019 STERNUM WASHOUT WITH STERNUM CLOSURE WITH STERNALOCK 360, 12 SELF-DRILLING LOCKING SCREWS 12MM, 4 SELFDRILLING LOCKING SCREWS 14MM. performed by Caro Teresa MD at [facility] Immunization History: There is no immunization history on file for this patient. 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 Encephalopathy G93.40 Acute cerebral infarction (HCC) I63.9 Seizure (HCC) R56.9 Encephalopathy, unspecified G93.40 Ischemic stroke (HCC) I63.9 Chronic a-fib I48.20 Anticoagulated Z79.01 Acute postoperative respiratory failure (HCC) J95.821 Cervical stenosis of spinal canal M48.02 Isolation/Infection: Isolation No Isolation Patient Infection Status None to display Nurse Assessment: Last Vital Signs: BP (!) 180/63 Pulse 56 Temp 97.7 F (36.5 C) (Oral) Resp 26 Ht 5' 2 (1.575 m) Wt 175 lb 11.3 oz (79.7 kg) SpO2 98% BMI 32.14 kg/m Last documented pain score (0-10 scale): Pain Level: 5 Last Weight: Wt Readings from Last 1 Encounters: 07/22/19 175 lb 11.3 oz (79.7 kg) Mental Status: {IP PT MENTAL STATUS:} IV Access: - None Nursing Mobility/ADLs: Walking Assisted Transfer Assisted Bathing Assisted Dressing Assisted Toileting Assisted Feeding Assisted Extender Assisted Med Delivery prefers mixed with applesauce Wound Care Documentation and Therapy: Elimination: Continence: Bowel: No Bladder: No Urinary Catheter: None Colostomy/Ileostomy/Ileal Conduit: No [REMOVED] Rectal Tube With balloon-Stool Appearance: Loose [REMOVED] Rectal Tube With balloon-Stool Color: Brown [REMOVED] Rectal Tube With balloon-Stool Amount: Large Date of Last BM: 07/23/2019 Intake/Output Summary (Last 24 hours) at 07/24/2019 0918 Last data filed at 07/23/2019 1701 Gross per 24 hour Intake 786.4 ml Output 1000 ml Net -213.6 ml I/O last 3 completed shifts: In: 786.4 [P.O.:720; I.V.:66.4] Out: 1000 [Urine:1000] Safety Concerns: At Risk for Falls Impairments/Disabilities: Speech and Vision Nutrition Therapy: Current Nutrition Therapy: - Oral Diet: Carb Control 4 carbs/meal (1800kcals/day) Routes of Feeding: Oral Liquids: [place] Thick Liquids Daily Fluid Restriction: no Last Modified Barium Swallow with Video (Video Swallowing Test): not done Treatments at the Time of Hospital Discharge: Respiratory Treatments: prn Oxygen Therapy: is on oxygen at 2 L/min per nasal cannula. Ventilator: - No ventilator support Rehab Therapies: Physical Therapy and Occupational Therapy Weight Bearing Status/Restrictions: No weight bearing restirctions Other Medical Equipment (for information only, NOT a DME order): walker Other Treatments: Patient's personal belongings (please select all that are sent with patient). Clothing glasses RN SIGNATURE: Aniya CASE MANAGEMENT/SOCIAL WORK SECTION Inpatient Status Date: 07-03-2019 Readmission Risk Assessment Score: Readmission Risk Risk of Unplanned Readmission: 34 Discharging to Facility/ Agency Name:[facility] Address: Phone: Fax: Dialysis Facility (if applicable) Name: Address: Dialysis Schedule: Phone: Fax: Ceramics Technician/Diesel Retrofit Installer signature: ICIAN SECTION Prognosis: Fair Condition at Discharge: Stable Rehab Potential (if transferring to Rehab): Fair Recommended Labs or Other Treatments After Discharge: Please check PT/INR per protocol at facility.Hold coumadin on 3-4-20 for one day and begin 3-5-20 at 2.5mg and check PT/INR for therapeutic INR range of 2.5-3.5. Pts INR today was 3.0. when dosing coumadin INRs should be checked every 3 days when beginning coumadin until constant INR. Physician Certification: I certify the above information and transfer of Eleanor Mcclain is necessary for the continuing treatment of the diagnosis listed and that she requires [facility] for greater 30 days. PHYSICIAN SIGNATURE: Dr. Caro Teresa MD * Additional Instructions* Aniya Goff RN - 07/24/2019 Coronary Artery Bypass Graft: What to Expect at Home Your Recovery Coronary artery bypass graft (CABG) is surgery to treat coronary artery disease. The surgery helps blood make a detour, or bypass, around one or more narrowed or blocked coronary arteries. Coronary arteries are the blood vessels that bring blood to the heart. Your doctor did the surgery through a cut, called an incision, in your chest. You will feel tired and sore for the first few weeks after surgery. You may have some brief, sharp pains on either side of your chest. Your chest, shoulders, and upper back may ache. The incision in your chest and the area where the healthy vein was taken may be sore or swollen. These symptoms usually get better after 4 to 6 weeks. You will probably be able to do many of your usual activities after 4 to 6 weeks. But for 2 to 3 months you will not be able to lift heavy objects or do activities that strain your chest or upper armmuscles. At first you may notice that you get tired easily and need to rest often. It may take 1 to2 months to get your energy back. Some people find that they are more emotional after this surgery. You may cry easily or show emotion in ways that are unusual for you. This is common and may last for up to a year. Some people get depressed after CABG surgery. Talk with your doctor if you have sadness that continues or you are concerned about how you are feeling. Treatment and other support can help you feel better. Even though the surgery may improve your symptoms, you will still need to make changes in your lifestyle to lower your risk of a heart attack or stroke. It will be important to eat a heart-healthy diet, get regular exercise, not smoke, take your heart medicines, and reduce stress. You will likely start a cardiac rehabilitation (rehab) program in the hospital. You will continue with this rehab program after you go home to help you recover and prevent problems with your heart. Talk to your doctor about whether rehab is right for you. This care sheet gives you a general idea about how long it will take for you to recover. But each person recovers at a different pace. Follow the steps below to get better as quickly as possible. How can you care for yourself at home? Activity Rest when you feel tired. Getting enough sleep will help you recover. Try to sleep on your back for4 to 6 weeks while your breastbone (sternum) heals. This usually takes about 4 to 6 weeks. Try to walk each day. Start by walking a little more than you did the day before. Bit by bit, increase the amount you walk. Walking boosts blood flow and helps prevent pneumonia and constipation. Avoid strenuous activities, such as bicycle riding, jogging, weight lifting, or heavy aerobic exercise, until your doctor says it is okay. For 3 months, avoid activities that strain your chest or upper arm muscles. This includes pushing alawn mower or vacuum, mopping floors, or swinging a golf club or tennis racquet. For 2 to 3 months, avoid lifting anything that would make you strain. This may include a child, heavy grocery bags and milk containers, a heavy briefcase or backpack, or cat litter or dog food bags. Hold a pillow firmly over your chest incision when you cough or take deep breaths. This will support your chest and reduce your pain. Do breathing exercises at home as instructed by your doctor. This will help prevent pneumonia. Ask your doctor when you can drive again. You will probably need to take 4 to 12 weeks off from work. It depends on the type of work you do and how you feel. You may shower as usual. Pat the incision dry. Do not take a bath for the first 3 weeks, or until your doctor tells you it is okay. Do not swim or use a hot tub for at least 1 month, or until your doctor says it is okay. Ask your doctor when it is okay for you to have sex. Diet Eat a heart-healthy diet. If you have not been eating this way, talk to your doctor. You also may want to talk to a dietitian. A dietitian can help you learn about healthy foods. Drink plenty of fluids (unless your doctor tells you not to). You may notice that your bowel movements are not regular right after your surgery. This is common. Try to avoid constipation and straining with bowel movements. You may want to take a fiber supplement every day. If you have not had a bowel movement after a couple of days, ask your doctor about taking a mild laxative. Medicines Your doctor will tell you if and when you can restart your medicines. He or she will also give you instructions about taking any new medicines. If you take aspirin or some other blood thinner, ask your doctor if and when to start taking it again. Make sure that you understand exactly what your doctor wants you to do. Your doctor may give you medicines to prevent blood clots, keep your heartbeat steady, and lower your blood pressure and cholesterol. Take your medicines exactly as prescribed. Call your doctor if you think you are having a problem with your medicine. Be safe with medicines. Take pain medicines exactly as directed. ? If the doctor gave you a prescription medicine for pain, take it as prescribed. ? If you are not taking a prescription pain medicine, ask your doctor if you can take an oysv-nds-kmjfnnu medicine. ? Do not take aspirin, ibuprofen (Advil, Motrin), naproxen (Aleve), or other nonsteroidal anti-inflammatory drugs (NSAIDs) unless your doctor says it is okay. If you think your pain medicine is making you sick to your stomach: ? Take your medicine after meals (unless your doctor has told you not to). ? Ask your doctor for a different pain medicine. If your doctor prescribed antibiotics, take them as directed. Do not stop taking them just because you feel better. You need to take the full course of antibiotics. Incision care If you have strips of tape on the incisions the doctor made, leave the tape on for a week or until it falls off. Wash the area daily with warm, soapy water, and pat it dry. Don't use hydrogen peroxide or alcohol,which can slow healing. You may cover the area with a gauze bandage if it weeps or rubs against clothing. Change the bandage every day. Keep the area clean and dry. Do not use any creams, lotions, powders, ointments, or oils unless your doctor tells you it is okay. If you have an incision in your leg: ? Wear support stockings on your legs during the day for the first 2 weeks. You can take the stockings off at night while you sleep. ? Raise your legs above the level of your heart whenever you lay down for the first 4 to 6 weeks. Other instructions Keep track of your weight. Weigh yourself every day at the same time of day, on the same scale, in the same amount of clothing. A sudden increase in weight can be a sign of a problem with your heart.Tell your doctor if you suddenly gain weight, such as 3 pounds or more in 2 to 3 days. Do not smoke. Smoking can make it harder for you to recover and it will raise the chances of your arteries narrowing again. If you need help quitting, talk to your doctor about stop-smoking programs and medicines. These can increase your chances of quitting for good. Follow-up care is a mendoza part of your treatment and safety. Be sure to make and go to all appointments, and call your doctor if you are having problems. It's also a good idea to know your test resultsand keep a list of the medicines you take. When should you call for help? Call 911 anytime you think you may need emergency care. For example, call if: You passed out (lost consciousness). You have severe trouble breathing. You have sudden chest pain and shortness of breath, or you cough up blood. You have severe pain in your chest. You have symptoms of a heart attack. These may include: ? Chest pain or pressure, or a strange feeling in the chest. ? Sweating. ? Shortness of breath. ? Nausea or vomiting. ? Pain, pressure, or a strange feeling in the back, neck, jaw, or upper belly or in one or both shoulders or arms. ? Lightheadedness or sudden weakness. ? A fast or irregular heartbeat. After you call 911, the waxing machine operator may tell you to chew 1 adult-strength or 2 to 4 low-dose aspirin. Wait for an ambulance. Do not try to drive yourself. You have angina symptoms (such as chest pain or pressure) that do not go away with rest or are not getting better within 5 minutes after you take a dose of nitroglycerin. Call your doctor now or seek immediate medical care if: You have pain that does not get better after you take pain medicine. You have a fever over 100 F. You have loose stitches, or your incision comes open. Bright red blood has soaked through the bandage over your incision. You have signs of infection, such as: ? Increased pain, swelling, warmth, or redness. ? Red streaks leading from the incision. ? Pus draining from the incision. ? Swollen lymph nodes in your neck, armpits, or groin. ? A fever. You have signs of a blood clot in a leg. If you had a vein removed from your leg, you may have tenderness and swelling while your leg heals. But signs of a blood clot may be in a different part of your leg and may include: ? Pain in your calf, back of the knee, thigh, or groin. ? Redness and swelling in your leg or groin. Your heartbeat feels very fast or slow, skips beats, or flutters. You are dizzy or lightheaded, or you feel like you may faint. You have new or increased shortness of breath. Watch closely for changes in your health, and be sure to contact your doctor if: You gain weight suddenly, such as 3 pounds or more in 2 to 3 days. You have increased swelling in your legs, ankles, or feet. You have any concerns about your incision. You feel very sad or have other signs of depression, such as trouble sleeping or eating. You have questions about diet, exercise, quitting smoking, or stress reduction after surgery. Where can you learn more? Go to [email or web address] and sign in to your [employer] account. Enter F759 in the Search Health Information box to learn more about Coronary Artery Bypass Graft: What to Expect atHome. If you do not have an account, please click on the Sign Up Now link. Current as of: August 29, 2018 Content Version: 12.3 [id number] [employer]. Care instructions adapted under license by [employer]. If youhave questions about a medical condition or this instruction, always ask your healthcare professional. [employer] disclaims any warranty or liability for your use of this information. Please hold coumadin 3-4-20 due to INR of 3.0 and restart on 3-5-20 at 2.5 mg daily INR goal 2.5-3.5 first three months Please monitor PT/INR as soon as patient arrives at facility to determine coumadin dosing. Please perform strict daily neuro checks for neuro improvement Follow up with CT Surgery in 2 week. Call office at [phone] for any problems. * Attachments The following attachments cannot be sent through Care Everywhere. * CABG (Coronary Artery Bypass Graft Surgery): General Info ([place]) * Aortic Valve Replacement Surgery: Post-op ([place]) * Antiplatelets After Ischemic Stroke: General Info ([place]) * Elevated INR ([place]) documented in this encounter Advance Directives Documents on File Type Date Recorded Patient Flare Breaker Expl anation Advance Directives and Livin g Will 06/06/2019 7:47 AM Latest Code Status on File Code Status Date Activated Date Inactivated Comments Full Code 06/06/2019 9:00 AM Documents on File Type Date Recorded Patient Flare Breaker Expl anation Advance Directives and Living Will Power of Fire Regulator Documents on File Type Date Recorded Patient Flare Breaker Expl anation Advance Directives and Living Will Power of Fire Regulator Latest Code Status on File Code Status Date Activated Date Inactivated Comments Full Code 07/03/2019 5:27 PM Documents on File Type Date Recorded Patient Flare Breaker Expl anation ACP-Advance Directive ACP-Advance Directive 07/25/2019 1:29 PM ACP-Power of Fire Regulator Latest Code Status on File Code Status Date Activated Date Inactivated Comments Full Code 07/03/2019 5:27 PM 07/24/2019 7:14 PM Documents on File Type Date Recorded Patient Flare Breaker Expl anation Advance Directives and Livin g Will Advance Directives and Livin g Will 07/25/2019 1:29 PM Power of Fire Regulator Documents on File Type Date Recorded Patient Flare Breaker Expl anation Advance Directives and Livin g Will 06/06/2019 7:47 AM Latest Code Status on File Code Status Date Activated Date Inactivated Comments Full Code 06/06/2019 9:00 AM Documents on File Type Date Recorded Patient Flare Breaker Expl anation ACP-Advance Directive ACP-Power of Fire Regulator ACP-Advance Directive 07/25/2019 1:29 PM Documents on File Type Date Recorded Patient Flare Breaker Expl anation Power of Fire Regulator 12/15/2022 9:23 AM Livin g Will Advance Directives and Livin g Will 12/15/2022 9:22 AM Documents on File Type Date Recorded Patient Flare Breaker Expl anation ACP-Advance Directive 07/25/2019 1:29 PM Latest Code Status on File Code Status Date Activated Date Inactivated Comments Full Code 09/01/2023 2:08 PM Code Status History Code Status Date Activated Date Inactivated Comments Full Code 09/01/2023 2:08 PM 09/01/2023 2:08 PM Full Code 07/03/2019 5:27 PM 07/24/2019 7:14 PM Latest Code Status on File Code Status Date Activated Date Inactivated Comments Full Code 09/01/2023 2:08 PM 09/01/2023 5:20 PM Advance Directive Response Recorded Date/ Time Advance Directives No September 29 6:54am Latest Code Status on File Code Status Date Activated Date Inactivated Comments Full Code 11/20/2022 12:32 PM 11/23/2022 8:03 PM Code Status History Code Status Date Activated Date Inactivated Comments Full Code 12/31/2021 11:23 AM 01/04/2022 10:45 PM Directive Yes / No Effective Date File Name No Information Summary Purpose Family History Relationship Condition Age at Onset Recorded Date/T khoa brother Hypertension Unknown sister Hypertension Unknown father Unknown Malignant neoplasm Unknown family member Unknown mother Motor vehicle accident Unknown Unknown History of stroke Unknown Family Member Type Diagnosis Age At Onset Father Problem (finding) HBP Brother Problem (finding) Peripheral vascular dis ease Father Problem (finding) Heart Disease multiple Problem (finding) HBP Mother Problem (finding) diabetes melli tus in first degree relative Brother Problem (finding) renal failure syndrome Reason for Referral Status Reason Specialty Diagnoses / Procedures Referre d By Contact Referred To Contact Closed Radiology Diagnoses CAD, multiple vessel Pre-op testing Procedures CT Chest WO Contrast CT Chest WO Contrast HC CT CHEST W/O CONTRAST Vasiliy Garcia NURSING PROGRAM MANAGER - TROLLEY WORKER [address] [address] Status Reason Specialty Diagnoses / Procedures Referred By Contact Referred To Contact Open Specialty Services Required Cardiac Rehabilitation Diagnoses CAD, multiple vessel Stvz Car [address] [place] [address] Status Reason Specialty Diagnoses / Procedures Re ferred By Contact Referred To Contact Open Cardiology Diagnoses Kidney insufficiency Hypertension, unspecified type Shortness of breath Hyperlipidemia, unspecified hyperlipidemia type Vitamin D deficiency disease Other specified diabetes mellitus with other specified complication, unspecified whether manager long term care insulin use (HCC) Procedures EKG 12 Lead Anshul Irizarry MD [address] [place] [address] Status Reason Specialty Diagnoses / Procedures Re ferred By Contact Referred To Contact Open Cardiology Diagnoses Aortic valve stenosis, etiology of cardiac valve disease unspecified Shortness of breath Hypertension, unspecified type Hyperlipidemia, unspecified hyperlipidemia type Vitamin D deficiency disease Procedures EKG 12 Lead Anshul Irizarry MD [address] [place] [address] Status Reason Specialty Diagnoses / Procedures Referred By Contact Referred To Contact Pending Review Vascular Lab Diagnoses CAD, multiple vessel Pre-op testing Bilateral carotid bruits Procedures VL DUP CAROTID BILATERAL VL DUP CAROTID BILATERAL HC EXTRACRANIAL BILAT STUDY Vasiliy Garcia NURSING PROGRAM MANAGER - TROLLEY WORKER [address] [address] [facility] [address] [place] [id number] Status Reason Specialty Diagnoses / Procedures Re ferred By Contact Referred To Contact Pending Review Cardiology Diagnoses Hypertension, unspecified type Hyperlipidemia, unspecified hyperlipidemia type Other specified diabetes mellitus with other specified complication, unspecified whether manager long term care insulin use (HCC) Vitamin D deficiency disease Procedures EKG 12 Lead [facility] [address] [place] [address] Specialty Diagnoses / Procedures Referred By Saira pina Referred To Contact Diagnoses Palpitations Procedures Cardiac event monitor Anshul Irizarry MD [address] [place] [address] Referral ID Status Reason Start Date Expiration Date Visits Re quested Visits Authorized [id number] Closed 09/07/2021 09/07/2022 1 1 Specialty Diagnoses / Procedures Referred By Saira pina Referred To Contact Diagnoses SOB (shortness of breath) Procedures Nuclear stress test with myocardial perfusion Anshul Irizarry MD [address] [place] [address] Referral ID Status Reason Start Date Expiration Date Visits Re quested Visits Authorized [id number] Closed 09/27/2023 10/28/2023 3 3 Assessments Diagnosis CAD, multiple vessel Coronary atherosclerosis of unspecified type of vessel, tyonek or graft Pre-op testing Preoperative examination, unspecified Diagnosis CAD, multiple vessel- Primary Coronary atherosclerosis of unspecified type of vessel, tyonek or graft S/P AVR (aortic valve replacement) Heart valve replaced by other means Post-op pain Other acute postoperative pain Anticoagulated Encounter for long-term (current) use of anticoagulants Encephalopathy Encephalopathy, unspecified Acute cerebral infarction (HCC) Unspecified cerebral artery occlusion with cerebral infarction Seizure (HCC) Other convulsions Encephalopathy, unspecified Ischemic stroke (HCC) Chronic a-fib Atrial fibrillation Acute postoperative respiratory failure (HCC) Cervical stenosis of spinal canal Spinal stenosis in cervical region Diagnosis Kidney insufficiency Unspecified disorder of kidney and ureter Hypertension, unspecified type Shortness of breath Hyperlipidemia, unspecified hyperlipidemia type Vitamin D deficiency disease Unspecified vitamin D deficiency Other specified diabetes mellitus with other specified complication, unspecified whether halfway insulin use (HCC) Diagnosis Aortic valve stenosis, etiology of cardiac valve disease unspecified Shortness of breath Hypertension, unspecified type Hyperlipidemia, unspecified hyperlipidemia type Vitamin D deficiency disease Unspecified vitamin D deficiency Diagnosis CAD, multiple vessel Coronary atherosclerosis of unspecified type of vessel, tyonek or graft Pre-op testing Preoperative examination, unspecified Bilateral carotid bruits Hospital Course * Vasiliy Garcia APRN - TROLLEY WORKER - 07/24/2019 9:09 AM EST [facility] Cardiothoracic Surgery Discharge Summary Patient's Name/Date of : Eleanor Mcclain / 1950 (68 y.o.) Admission Date: 07/03/2019 5:13 AM Discharge Date: 07-24-19 Discharge Physician: Discharge Unit: CAR1 Discharge condition: fair Disposition: LTAC Reason For Admission: CABG + AVR HPI: Eleanor Mcclain is a 68 y.o. female who presents to [facility] for a CABG x3 and AVR. Brief Review of Hospital Course: Patient was admitted to the hospital on July 03, 2019 for CABGx3 and AVR. In the middle of the night on July [id number] patient required a fixture of 1 of the distal grafts. Patient was heparinized during the time. On Saturday July 06, 2019, patient started showing signs of altered mental status with a normal ABG. Stat CT of the head done and neurology involved due to stroke. Patient continued to be heparinized. On July 10 patient was reintubated due to ARDS and pulmonaryand infectious disease consulted. Patient required extensive hospital stay for healing and daily neuro exams performed with neuro critical care. Pulmonary managed ARDS On July 20 patient was extubated with no complications patient was showing signs of drastic and neuro improvement and following simple commands. Patient was able to protect her airway. Discharge planning beginning and patient going to LTAC [place] Patient started on 5 mg of Coumadin daily. Today INR noted to be 3.0. Patient will hold Coumadin dosing on July 25, 2019, and resume Coumadin at 2.5 mg daily. Tach will manage the PT/INR from this point. Review of Systems Physical Exam: Weight: Weight: 175 lb 11.3 oz (79.7 kg) Weight: 144 lb 2.9 oz (65.4 kg) I/O last 3 completed shifts: In: 786.4 [P.O.:720; I.V.:66.4] Out: 1000 [Urine:1000] General: alert and oriented to person, place and time, well-developed and well- nourished, in no acute distress. Up in chair, No apparent distress. Heart:Normal S1 and S2. Regular rhythm. No murmurs, gallops, or rubs. Pacing Wires No Lungs: clear to auscultation bilaterally Abdomen: soft, non tender, non distended, BSx4 Extremities: non-pitting edema Wounds: clean and dry, healing appropriately. Past Medical History: Diagnosis Date Aortic stenosis - benitez [facility] CAD (coronary artery disease) Chronic kidney disease CVA (cerebral vascular accident) ([facility]) 2011 no deficits Diabetes mellitus ([facility]) Dr. Richards Hyperlipidemia Hypertension Dr. Richards Kidney failure Wears dentures full upper plate, lower partial Wears prescription eyeglasses Wellness examination Dr. Richards seen in 03/2019 Past Surgical History: Procedure Laterality Date CABG WITH AORTIC VALVE REPLACEMENT N/A 07/03/2019 CABG CORONARY ARTERY BYPASS X3; AORTIC VALVE REPLACEMENT WITH 21MM INTUITY VALVE, ON PUMP, SWAN SHAWN, LOVE performed by Caro Teresa MD at [facility] [[email or web address]] CVOR CARDIAC CATHETERIZATION Bilateral 06/06/2019 Possible bypass & aortic valve replacement CHOLECYSTECTOMY COLONOSCOPY CORONARY ARTERY BYPASS GRAFT N/A 07/03/2019 CABG CORONARY ARTERY BYPASS REDO performed by Caro Teresa MD at [facility] [[email or web address]] CVOR GALLBLADDER SURGERY HC PICC POWERPICC DOUBLE 07/13/2019 HYSTERECTOMY STERNUM DEBRIDEMENT N/A 07/04/2019 STERNUM WASHOUT WITH STERNUM CLOSURE WITH STERNALOCK 360, 12 SELF-DRILLING LOCKING SCREWS 12MM, 4 SELFDRILLING LOCKING SCREWS 14MM. performed by Caro Teresa MD at [facility] [[email or web address]] CVOR Allergies Allergen Reactions Latex Anaphylaxis Eyes swell shut, rash Family History Problem Relation Age of Onset Stroke Mother Other Mother car accident Heart Disease Father Kidney Disease Brother Alcohol Abuse Brother Social History Socioeconomic History Marital status: Spouse name: Not on file Number of children: Not on file Years of education: Not on file Highest education level: Not on file Occupational History Not on file Social Needs Financial resource strain: Not on file Food insecurity: Worry: Not on file Inability: Not on file Transportation needs: Medical: Not on file Non-medical: Not on file Tobacco Use Smoking status: Never Smoker Smokeless tobacco: Never Used Substance and Sexual Activity Alcohol use: Never Frequency: Never Drug use: Never Sexual activity: Never Lifestyle Physical activity: Days per week: Not on file Minutes per session: Not on file Stress: Not on file Relationships Social connections: Talks on phone: Not on file Gets together: Not on file Attends rastafarian service: Not on file Active member of club or organization: Not on file Attends meetings of clubs or organizations: Not on file Relationship status: Not on file Intimate partner violence: Fear of current or ex partner: Not on file Emotionally abused: Not on file Physically abused: Not on file Forced sexual activity: Not on file Other Topics Concern Not on file Social History Narrative Not on file Medication List START taking these medications amiodarone 200 MG tablet Commonly known as: CORDARONE Take 1 tablet by mouth daily Start taking on: July 25, 2019 atorvastatin 40 MG tablet Commonly known as: LIPITOR Take 1 tablet by mouth nightly bisacodyl 10 MG suppository Commonly known as: DULCOLAX Place 1 suppository rectally daily as needed for Constipation bumetanide 2 MG tablet Commonly known as: BUMEX Take 1 tablet by mouth 2 times daily carvedilol 12.5 MG tablet Commonly known as: COREG Take 1 tablet by mouth 2 times daily (with meals) docusate 100 MG Caps Commonly known as: COLACE, DULCOLAX Take 100 mg by mouth 2 times daily as needed for Constipation famotidine 20 MG tablet Commonly known as: PEPCID Take 1 tablet by mouth daily Start taking on: July 25, 2019 hydrALAZINE 25 MG tablet Commonly known as: APRESOLINE Take 1 tablet by mouth every 8 hours insulin glargine 100 UNIT/ML injection vial Commonly known as: LANTUS Inject 20 Units into the skin nightly * insulin lispro 100 UNIT/ML injection vial Commonly known as: HUMALOG Inject 0-18 Units into the skin 3 times daily (with meals) * insulin lispro 100 UNIT/ML injection vial Commonly known as: HUMALOG Inject 0-9 Units into the skin nightly oxyCODONE-acetaminophen 5-325 MG per tablet Commonly known as: Percocet Take 1 tablet by mouth every 8 hours as needed for Pain for up to 3 days. Intended supply: 5 days. Take lowest dose possible to manage pain QUEtiapine 25 MG tablet Commonly known as: SEROQUEL Take 1 tablet by mouth nightly as needed for Agitation therapeutic multivitamin-minerals tablet Take 1 tablet by mouth daily (with breakfast) Start taking on: July 25, 2019 thiamine 100 MG tablet Take 1 tablet by mouth daily Start taking on: July 25, 2019 warfarin 2.5 MG tablet Commonly known as: Coumadin Take 1 tablet by mouth daily Please have patient hold dose on 07-25-19. Pt is therapeutic of INR 3.0.dose changed from 5mg to 2.5mg. * This list has 2 medication(s) that are the same as other medications prescribed for you. Read thedirections carefully, and ask your doctor or other care provider to review them with you. CONTINUE taking these medications amLODIPine 10 MG tablet Commonly known as: NORVASC aspirin 81 MG tablet clopidogrel 75 MG tablet Commonly known as: PLAVIX diphenhydrAMINE 25 MG capsule Commonly known as: BENADRYL FLUoxetine 40 MG capsule Commonly known as: PROZAC losartan 100 MG tablet Commonly known as: COZAAR magnesium 30 MG tablet Potassium 99 MG Tabs spironolactone 25 MG tablet Commonly known as: ALDACTONE Zanaflex 4 MG tablet Generic drug: tiZANidine STOP taking these medications Colon-Aid Caps gemfibrozil 600 MG tablet Commonly known as: LOPID metFORMIN 1000 MG tablet Commonly known as: GLUCOPHAGE niacin 500 MG extended release capsule NONFORMULARY traZODone 50 MG tablet Commonly known as: DESYREL Where to Get Your Medications These medications were sent to [place] [id number] [facility] - [phone] - F [phone] [facility] [address] amiodarone 200 MG tablet atorvastatin 40 MG tablet bisacodyl 10 MG suppository bumetanide 2 MG tablet carvedilol 12.5 MG tablet docusate 100 MG Caps famotidine 20 MG tablet hydrALAZINE 25 MG tablet insulin glargine 100 UNIT/ML injection vial insulin lispro 100 UNIT/ML injection vial insulin lispro 100 UNIT/ML injection vial QUEtiapine 25 MG tablet therapeutic multivitamin-minerals tablet thiamine 100 MG tablet warfarin 2.5 MG tablet You can get these medications from any pharmacy Bring a paper prescription for each of these medications oxyCODONE-acetaminophen 5-325 MG per tablet Data: CBC: Recent Labs 07/22/19 0409 07/23/19 0638 07/24/19 0637 WBC 17.3* 10.8 7.8 HGB 9.1* 9.1* 8.4* HCT 30.6* 31.2* 29.2* MCV 95.3 97.5 100.0 PLT 291 276 207 BMP: Recent Labs 07/22/19 0409 07/23/19 0638 07/23/19 0705 07/24/19 0637 NA 144 -- 144 143 141 K 3.7 < > 4.0 3.8 4.1 CL 106 -- 104 104 104 CO2 24 -- 26 27 26 PHOS -- -- 2.9 -- -- BUN 45* -- 34* 33* 26* CREATININE 1.49* -- 1.29* 1.28* 1.21* MG 2.8* -- 2.6 -- 2.4 < > = values in this interval not displayed. Accucheck Glucoses: Recent Labs 07/23/19 0647 07/23/19 1124 07/23/19 1611 07/23/19 2036 07/24/19 0745 POCGLU 111* 187* 108* 181* 72 Cardiac Enzymes: No results for input(s): CKTOTAL, CKMB, CKMBINDEX, TROPONINI in the last 72 hours. PTT/PT/INR: Recent Labs 07/22/19 0409 07/23/19 0638 07/24/19 0637 PROTIME 12.4* 13.6* 29.8* INR 1.2 1.3 3.0 Recent Labs 07/22/19 0409 07/23/19 0638 07/24/19 0637 APTT 59.4* 67.2* 37.2* Liver Profile: Lab Results Component Value Date AST 29 07/09/2019 ALT 17 07/09/2019 BILIDIR 0.13 07/08/2019 BILITOT 0.36 07/09/2019 ALKPHOS 67 07/09/2019 Lab Results Component Value Date CHOL 252 05/10/2019 HDL 113 05/10/2019 TRIG 95 07/09/2019 TSH: Lab Results Component Value Date TSH 4.27 07/15/2019 UA: Lab Results Component Value Date COLORU YELLOW 07/05/2019 PHUR 5.0 07/05/2019 WBCUA 2 TO 5 07/05/2019 RBCUA 2 TO 5 07/05/2019 MUCUS NOT REPORTED 07/05/2019 TRICHOMONAS NOT REPORTED 07/05/2019 YEAST NOT REPORTED 07/05/2019 BACTERIA NOT REPORTED 07/05/2019 SPECGRAV 1.035 07/05/2019 LEUKOCYTESUR NEGATIVE 07/05/2019 UROBILINOGEN Normal 07/05/2019 BILIRUBINUR NEGATIVE 07/05/2019 GLUCOSEU NEGATIVE 07/05/2019 AMORPHOUS NOT REPORTED 07/05/2019 Problem List Items Addressed This Visit CAD, multiple vessel - Primary Relevant Medications metoprolol tartrate (LOPRESSOR) tablet 12.5 mg (Completed) atorvastatin (LIPITOR) tablet 40 mg hydrALAZINE (APRESOLINE) injection 10 mg (Completed) amiodarone (CORDARONE) 150 mg in dextrose 5 % 100 mL bolus (Completed) furosemide (LASIX) injection 80 mg (Completed) amiodarone (CORDARONE) 150 mg in dextrose 5 % 100 mL bolus (Completed) furosemide (LASIX) injection 80 mg (Completed) furosemide (LASIX) injection 80 mg (Completed) furosemide (LASIX) injection 80 mg (Completed) chlorothiazide (DIURIL) injection 500 mg (Completed) amiodarone (CORDARONE) 150 mg in dextrose 5 % 100 mL bolus (Completed) labetalol (NORMODYNE;TRANDATE) injection 10 mg spironolactone (ALDACTONE) tablet 50 mg carvedilol (COREG) tablet 12.5 mg chlorothiazide (DIURIL) injection 500 mg (Completed) bumetanide (BUMEX) injection 2 mg chlorothiazide (DIURIL) injection 500 mg (Completed) cloNIDine (CATAPRES) 0.2 MG/24HR 1 patch amLODIPine (NORVASC) tablet 10 mg hydrALAZINE (APRESOLINE) tablet 25 mg amiodarone (CORDARONE) tablet 200 mg hydrALAZINE (APRESOLINE) injection 15 mg bumetanide (BUMEX) injection 2 mg (Completed) warfarin (COUMADIN) tablet 5 mg (Completed) bumetanide (BUMEX) tablet 2 mg enoxaparin (LOVENOX) injection 80 mg warfarin (COUMADIN) tablet 5 mg (Completed) warfarin (COUMADIN) daily dosing (placeholder) (Start on 07/24/2019 6:00 PM) amiodarone (CORDARONE) 200 MG tablet (Start on 07/25/2019) atorvastatin (LIPITOR) 40 MG tablet bumetanide (BUMEX) 2 MG tablet carvedilol (COREG) 12.5 MG tablet warfarin (COUMADIN) 2.5 MG tablet hydrALAZINE (APRESOLINE) 25 MG tablet Other Relevant Orders External Referral To Cardiac Rehab Other Visit Diagnoses S/P AVR (aortic valve replacement) Post-op pain Relevant Medications oxyCODONE-acetaminophen (PERCOCET) 5-325 MG per tablet Discharge Plan: Follow up with CT Surgery in 2 week. Call office at [phone] for any problems. Follow up with PCP and cardiology in 1-2 weeks. [facility] will manage coumadin and INR while patient is recovering. Check INR on arrival to facility today. Again, please hold Coumadin dosing on July 25, 2019 due to therapeutic INR. Begin Coumadin on 2019 at 2.5 mg daily Please perform neuro exams daily to monitor improvement. Please monitor blood pressure. The facility she is attending has a provider on staff to further manage medications after discharge. Patient was discharged on Aspirin, Plavix, Coumadin,ARB, BB, and Statin therapy per protocol. VASIILY GARCIA CNP documented in this encounter History of Present Illness * Ligia Ybarra OT - 07/24/2019 4:31 PM EST Occupational Therapy Facility/Department: [facility] [[email or web address]] CAR 1 Daily Treatment Note NAME: Eleanor Mcclain : 1950 Date of Service: 07/24/2019 Discharge Recommendations: Patient would benefit from continued therapy after discharge Assessment Performance deficits / Impairments: Decreased functional mobility ;Decreased ADL status;Decreased high-level IADLs;Decreased balance;Decreased strength;Decreased endurance Assessment: Pt to benefit from skilled OT services post discharge due to the adl deficits listed below. Treatment Diagnosis: CABG X3 & AVR 07/03/19 Prognosis: Good REQUIRES OT FOLLOW UP: Yes Activity Tolerance Activity Tolerance: Patient limited by fatigue;Patient limited by pain Safety Devices Safety Devices in place: Yes Type of devices: All fall risk precautions in place;Call light within reach;Patient at risk for falls;Left in chair;Nurse notified Patient Diagnosis(es): The primary encounter diagnosis was CAD, multiple vessel. Diagnoses of S/P AVR (aortic valve replacement), Post-op pain, and Anticoagulated were also pertinent to this visit. has a past medical history of Aortic stenosis, CAD (coronary artery disease), Chronic kidney disease, CVA (cerebral vascular accident) (HCC), Diabetes mellitus (HCC), Hyperlipidemia, Hypertension, Kidney failure, Wears dentures, Wears prescription eyeglasses, and Wellness examination. has a past surgical history that includes Hysterectomy; Gallbladder surgery; Cardiac catheterization (Bilateral, 06/06/2019); Cholecystectomy; Colonoscopy; Coronary artery bypass graft (N/A, 07/03/2019); Coronary artery bypass graft (N/A, 07/03/2019); Sternum Debridement (N/A, 07/04/2019); and piccpowerpicc double (07/13/2019). Restrictions Restrictions/Precautions Restrictions/Precautions: Cardiac, General Precautions, Surgical Protocols, Fall Risk, Up as Tolerated Required Braces or Orthoses?: No Required Braces or Orthoses Other: Heart Hugger Brace Position Activity Restriction Sternal Precautions: No Pushing, No Pulling, 5# Lifting Restrictions Sternal Precautions: CABG X3 & AVR 07/03/19 Subjective General Patient assessed for rehabilitation services?: Yes Family / Caregiver Present: Yes () Pain Assessment Pain Assessment: 0-10 Pain Level: 4 Pain Type: Chronic pain Pain Location: Back Pain Orientation: Lower Response to Pain Intervention: Patient Satisfied Vital Signs Patient Currently in Pain: Yes Objective ADL Feeding: Minimal assistance;Setup Grooming: Moderate assistance;Setup;Increased time to complete(pt able to comb front of hair, needed assist w/back) UE Bathing: Minimal assistance;Setup;Increased time to complete(would need assist w/back) LE Bathing: Moderate assistance;Setup;Increased time to complete(would need assist w/lower legs andfeet) UE Dressing: Moderate assistance;Setup;Increased time to complete(w/pipe puller shirt) LE Dressing: Moderate assistance;Maximum assistance;Setup;Increased time to complete(Mod assist w/underwear and sweatpants, Max w/footies) Toileting: Moderate assistance(pts assist w/merrick care wiping bottom) Pt sitting up in chair, setup for self care (see above for LOF). Educ given on AE/DME, EC/WS tech, Sternal Prec, Fall Prev, Safety with func mob and adls. Issued written info and pt verbalized understanding. Balance Sitting Balance: Stand by assistance(sitting in recliner) Standing Balance: Contact guard assistance(w/SW) Standing Balance Time: Pt stood for approx 2 min total for pulling up underwear and pants x2 Comment: w/SW Transfers Sit to stand: Contact guard assistance Stand to sit: Contact guard assistance Transfer Comments: w/SW Plan Plan Times per week: 5x Goals Short term goals Time Frame for Short term goals: By discharge pt will.. Short term goal 1: demo supine<>sit with mod A x1 Short term goal 2: demo grooming task with set up and SBA Short term goal 3: demo UB ADL task with set up and min A Short term goal 4: demo LB ADL task with set up and mod A Short term goal 5: progress mobility as medically able Therapy Time Individual Concurrent Group Co-treatment Time In 1545 Time Out 1625 Minutes 40 40 combined treatment minutes AISLINN KAYE, DAILY/L * Loraine Mary, RD, LD - 07/24/2019 2:18 PM EST Nutrition Assessment Type and Reason for Visit: Reassess, Consult, Patient Education Nutrition Recommendations: -Continue 4 CHO diabetic diet w/ dysphagia III soft and bite-sized and thin liquids -Suggest glucerna supplements BID -Will monitor po intake and weights Nutrition Assessment: Pt improving from a nutritional standpoint aeb tube feeding d/c'd 2/2 passed swallow eval and started on PO diet. Pt was currently w/ Aide and family during time of visit - inappropriate time for diet ed. Pt has been consuming 25-75% of her meals over the past few days. Will add supplements d/t variable po intake and monitor wt trends. Malnutrition Assessment: Malnutrition Status: Insufficient data Context: Acute illness or injury Findings of the 6 clinical characteristics of malnutrition (Minimum of 2 out of 6 clinical characteristics is required to make the diagnosis of moderate or severe Protein Calorie Malnutrition based on AND/ASPEN Guidelines): 1. Energy Intake-(variable intake over the past few days ), Unable to assess 2. Weight Loss-No significant weight loss, 3. Fat Loss-No significant subcutaneous fat loss, 4. Muscle Loss-No significant muscle mass loss, 5. Fluid Accumulation-Mild fluid accumulation, Extremities, Generalized 6. Microbiology Laboratory Manager Strength-Not measured Nutrition Risk Level: Moderate Nutrient Needs: Estimated Daily Total Kcal: 1.2-1.4 ~>5020-3664 kcals/d Estimated Daily Protein (g): 1.2-1.4 gm/kg ~>60-70 gms/d Nutrition Diagnosis: Problem: Inadequate oral intake Etiology: related to Difficulty swallowing ? Signs and symptoms: as evidenced by Intake 25-50%, Intake 50-75%, Swallow study results(Need for ONS ) Objective Information: Wound Type: Multiple(Incisions ) Current Nutrition Therapies: Oral Diet Orders: Carb Control 4 Carbs/Meal, Dysphagia Soft and Bite-Sized (Dysphagia 3) Oral Diet intake: 26-50%, 51-75% Oral Nutrition Supplement (ONS) Orders: None Anthropometric Measures: Ht: 5' 2 (157.5 cm) Current Body Wt: 175 lb (79.4 kg) Admission Body Wt: 144 lb (65.3 kg) % Weight Change: , 146-147 lbs over 2 mo per EMR; 36 lb wt gain x 1 wk [place] Body Wt: 110 lb 3.7 oz (50 kg), % [place] Body 159% adm/ideal BMI Classification: BMI 25.0 - 29.9 Overweight(26.2 - admit wt ) Nutrition Interventions: Continue current diet, Start ONS Continued Inpatient Monitoring, Education not appropriate at this time, Speech Therapy Nutrition Evaluation: Evaluation: Goal achieved Goals: Meet 75-100% of estimated nutrition needs Monitoring: Nutrition Progression, Meal Intake, Supplement Intake, Diet Tolerance, Skin Integrity, Wound Healing, I&O, Weight, Pertinent Labs, Monitor Bowel Function Contact Number: [phone] * Titus Hyde MD - 07/24/2019 12:08 PM EST [facility] - Progress Note Today's Date and Time: 07/24/2019, 12:08 PM Impression : CAD s/p CABG and AVR S/p Redo CABG s/p graft dysfunction Hypovolemic shock - resolved Rt CVA Leukocytosis Encephalopathy Acute respiratory failure ARDS Recommendations: Leukocytosis is likely reactive Monitor off antibiotics D/C Unasyn D/C Ceftriaxone D/C cefepime Pulmonary toilet Monitor clinical progression Removal of PICC prior to discharge OK to D/C LEI smith Medical Decision Making/Summary/Discussion:07/24/2019 Patient with CAD and aortic stenosis S/P aortic valve replacement and CABG x 3 on 07-03-19 Re-operated because of bleeding from disruption of distal anastomosis of the RSVG to PLV Developed embolic Rt MCA infarct Developed respiratory failure requiring intubation. Lungs with pulmonary edema/ARDS picture Developed WBC elevation and low grade fever Evaluation not suggestive of overt infection but difficult to exclude early pulmonary infection. Will culture sputum and place on ceftriaxone MRSA screen negative. Chances of MRSA pneumonia are minimal. Sputum 07-15-19 with Gram negative bacilli .Switched to cefepime. Sputum culture suggests Gram negative bacilli are anaerobes. Switched to Unasyn. Dose adjusted for renal failure 07-20-19 Worsening Lt pleural effusion> Will D/C Unasyn 3-1 passed swallow to dys I with nectar thick liquids 3-2 Pt easily roused, slow to respond, follows commands, oriented x 3 3-3 improved response time, AA Infection Control Recommendations [place] Precautions Antimicrobial Stewardship Recommendations Discontinuation of therapy Coordination of Outpatient Care: Estimated Length of IV antimicrobials: None Patient will need Midline Catheter Insertion: no Patient will need PICC line Insertion:no Patient will need: Home IV , Infusion Center, SNF, LTAC: Likely Patient will need outpatient wound care: TBD Chief complaint/reason for consultation: Low grade fever, trending WBC, erythema to Rt hand and Rt CVL site History of Present Illness: Eleanor Mcclain is a 68 y.o.-year-old female who was initially admitted on 07/03/2019. Patient seen at the request of Dr. Teresa INITIAL HISTORY: Pt has a history of aortic stenosis and mild to moderate mitral and tricuspid regurgitation. She developed a marked decline in her energy level, as well as increased SOB. Investigations showedthe presence of aortic stenosis and CAD. She presented on 07-03-19 for an elective CABG x 3 and aortic valve replacement. Post operatively pt developed hypotension and a significant increase in chest tube drainage (700 mlover 1 hour). She was urgently taken to the OR because of cardiac tamponade. The distal anastomosisof the RSVG to PLV had opened. The CABG was redone Pt required a total of 15 u blood products. Post operatively her chest was left open and she required vasopressor support. She was taken back to the OR on 07-04-19 for a sternal washout and closure. On 07-05 Sedation was discontinued, pt did not follow commands but was responsive to pain. She also developed an VIVIAN. Pt was extubated A CT brain was done 07-06-19 and showed possible subacute infarcts. On 07-[address] brain showed an evolving moderate Rt MCA infarct She continued to have altered mental status and intermittent periods of atrial fibrillation. On 07-07 she was started on Keppra for a possible seizure. 07-09 EEG showed disorganized and slow background suggesting moderate encephalopathy of non specificetiology. On 07-[address] showed stable appearance of Rt MCA infarct and redemonstration of multiple bilateral basal ganglia remote lacunar infarcts. She continued not following commands with intermittent periods agitation without purposeful movements. She then developed respiratory failure requiring bipap on 07-10. On 07-11 she pt developed respiratory arrest and CPR was initiated, She was successfully resuscitated and intubated. Pt then developed signs of ARDS with persistent hypoxia requiring high FiO2 concentration and ventilatory pressures. Suggest removal of cordis and Rt CVL due to skin excoriation and risk of infection OK to insert multi lumen PICC - Pt may require TPN 3-1 passed swallow to dys I with nectar thick liquids 3-2 Pt easily roused, slow to respond, follows commands, oriented x 3 CURRENT EXAMINATION: 07/24/2019 VS stable. Afebrile. No acute events overnight as per nurse Over weekend dropped her SaO2 and required bipap x 24 hours Pt appears to have recovered She continues to slowly improve Passed swallow to dys I with nectar thick liquids WBC improved 8.4->22.4->19.2->21.3->19.4 ->23.1->15.1->17.3->10.8->7.8 EKG - no changes from previous EKG CXR 07-19-19 - shows increasing size of left pleural effusion Pt extubated 07-19 and put on 6L NC. Tolerated well. Now breathing at 2L NC and saturating at 95% Has worsening Lt pleural effusion. Over weekend dropped her SaO2 and required bipap x 24 hours Pt appears to have recovered and continues to improve Labs, X rays reviewed: 07/24/2019 BUN: 30->28->26->22->23->26->33->34->44->51->33->26 Cr: 1.17->1.26->1.34->1.68->1.67->1.70->1.28->1.21 WBC: 21.3->19.4->23.1->15.1->17.3->10.8->7.8 Hb: 8.4->8.3->8.6->9.1->8.4 Plat: 246->244->370->276->207 Cultures: Urine: 07-03 no growth Blood: - 07-11: no growth - 07-15: no growth Sputum : 07-11 no growth to date 07-15 gram neg rods, mixed bacterial morphotypes on gram stain, yeast NOT silvio Wound: MRSA probe: negative CXR - 07-19 1. Increasing moderate-sized left pleural effusion. 2. Persistent left basilar and left perihilar consolidation or atelectasis. 3. Interval extubation. EKG 07-20-2019 Normal sinus rhythm Cannot rule out Inferior infarct (cited on or before 19-JUL-2019) Abnormal ECG When compared with ECG of 19-JUL-2019 06:28, T wave inversion no longer evident in Anterior leads Discussed with patient, RN, family. I have personally reviewed the past medical history, past surgical history, medications, social history, and family history, and I have updated the database accordingly. Past Medical History: Past Medical History: Diagnosis Date Aortic stenosis - benitez Carrasco CAD (coronary artery disease) Chronic kidney disease CVA (cerebral vascular accident) ([facility]) 2011 no deficits Diabetes mellitus ([facility]) Dr. Richards Hyperlipidemia Hypertension Dr. Richards Kidney failure Wears dentures full upper plate, lower partial Wears prescription eyeglasses Wellness examination Dr. Richards seen in 03/2019 Past Surgical History: Past Surgical History: Procedure Laterality Date CABG WITH AORTIC VALVE REPLACEMENT N/A 07/03/2019 CABG CORONARY ARTERY BYPASS X3; AORTIC VALVE REPLACEMENT WITH 21MM INTUITY VALVE, ON PUMP, SWAN SHAWN, LOVE performed by Caro Teresa MD at [facility] [[email or web address]] CVOR CARDIAC CATHETERIZATION Bilateral 06/06/2019 Possible bypass & aortic valve replacement CHOLECYSTECTOMY COLONOSCOPY CORONARY ARTERY BYPASS GRAFT N/A 07/03/2019 CABG CORONARY ARTERY BYPASS REDO performed by Caro Teresa MD at [facility] [[email or web address]] CVOR GALLBLADDER SURGERY HC PICC POWERPICC DOUBLE 07/13/2019 HYSTERECTOMY STERNUM DEBRIDEMENT N/A 07/04/2019 STERNUM WASHOUT WITH STERNUM CLOSURE WITH STERNALOCK 360, 12 SELF-DRILLING LOCKING SCREWS 12MM, 4 SELFDRILLING LOCKING SCREWS 14MM. performed by Caro Teresa MD at [facility] [[email or web address]] CVOR Medications: warfarin (COUMADIN) daily dosing (placeholder) Other RX Placeholder bumetanide 2 mg Oral BID enoxaparin 1 mg/kg Subcutaneous BID amLODIPine 10 mg Oral Daily hydrALAZINE 25 mg Oral 3 times per day amiodarone 200 mg Oral Daily cloNIDine 1 patch Transdermal Weekly FLUoxetine 10 mg Oral Daily insulin glargine 20 Units Subcutaneous Nightly sodium chloride flush 10 mL Intravenous BID vitamin B-1 100 mg Oral Daily spironolactone 50 mg Oral BID carvedilol 12.5 mg Oral BID WC lidocaine 1 % injection 5 mL Intradermal Once sodium chloride flush 10 mL Intravenous 2 times per day insulin lispro 0-18 Units Subcutaneous TID WC insulin lispro 0-9 Units Subcutaneous Nightly potassium chloride 40 mEq Intravenous Once famotidine 20 mg Oral Daily sodium chloride flush 10 mL Intravenous 2 times per day sodium chloride flush 10 mL Intravenous 2 times per day docusate sodium 100 mg Oral BID polyethylene glycol 17 g Oral Daily chlorhexidine 15 mL Mouth/Throat BID therapeutic multivitamin-minerals 1 tablet Oral Daily with breakfast atorvastatin 40 mg Oral Nightly clopidogrel 75 mg Oral Daily Social History: Social History Socioeconomic History Marital status: Spouse name: Not on file Number of children: Not on file Years of education: Not on file Highest education level: Not on file Occupational History Not on file Social Needs Financial resource strain: Not on file Food insecurity: Worry: Not on file Inability: Not on file Transportation needs: Medical: Not on file Non-medical: Not on file Tobacco Use Smoking status: Never Smoker Smokeless tobacco: Never Used Substance and Sexual Activity Alcohol use: Never Frequency: Never Drug use: Never Sexual activity: Never Lifestyle Physical activity: Days per week: Not on file Minutes per session: Not on file Stress: Not on file Relationships Social connections: Talks on phone: Not on file Gets together: Not on file Attends rastafarian service: Not on file Active member of club or organization: Not on file Attends meetings of clubs or organizations: Not on file Relationship status: Not on file Intimate partner violence: Fear of current or ex partner: Not on file Emotionally abused: Not on file Physically abused: Not on file Forced sexual activity: Not on file Other Topics Concern Not on file Social History Narrative Not on file Family History: Family History Problem Relation Age of Onset Stroke Mother Other Mother car accident Heart Disease Father Kidney Disease Brother Alcohol Abuse Brother Allergies: Latex Review of Systems: 07/24/2019 pt easily roused, slow to respond but appropriate. SONIA x 4 Hoping for discharge soon Physical Examination : Patient Vitals for the past 8 hrs: BP Temp Temp src Pulse Resp 07/24/19 1111 (!) 138/55 98.1 F (36.7 C) Oral 50 20 07/24/19 0743 (!) 180/63 97.7 F (36.5 C) Oral General Appearance: In chair, and in no apparent distress, on 2L O2 NC Head: Normocephalic, no trauma Eyes: Pupils equal, round, reactive to light; sclera anicteric; conjunctivae pink. No embolic phenomena. ENT: Oropharynx clear, without erythema, exudate, or thrush. No tenderness of sinuses. Mouth/throat: mucosa pink and moist. No lesions. Orally intubated. Neck:Supple, without lymphadenopathy. Thyroid normal, No bruits. Pulmonary/Chest: Clear, generally diminished, distant sounds. No dullness to percussion. Cardiovascular: Regular rate and rhythm with murmur,no rubs, or gallops. Abdomen: Soft, non tender. Bowel sounds hypoactive. No organomegaly All four Extremities: No cyanosis, clubbing, mild generalized edema, no effusions. Neurologic: Slow to respond but appropriate Skin: Warm and dry with good turgor.Signs of peripheral arterial insufficiency. No ulcerations. No open wounds. Medical Decision Making -Laboratory: I have independently reviewed/ordered the following labs: CBC with Differential: Recent Labs 07/23/19 0638 07/24/19 0637 WBC 10.8 7.8 HGB 9.1* 8.4* HCT 31.2* 29.2* PLT 276 207 BMP: Recent Labs 07/23/19 0638 07/23/19 0705 07/24/19 0637 NA 144 143 141 K 4.0 3.8 4.1 CL 104 104 104 CO2 26 27 26 BUN 34* 33* 26* CREATININE 1.29* 1.28* 1.21* MG 2.6 -- 2.4 Lab Results Component Value Date MUCUS NOT REPORTED 07/05/2019 RBC 2.92 07/24/2019 TRICHOMONAS NOT REPORTED 07/05/2019 WBC 7.8 07/24/2019 YEAST NOT REPORTED 07/05/2019 TURBIDITY CLEAR 07/05/2019 Lab Results Component Value Date CREATININE 1.21 07/24/2019 GLUCOSE 75 07/24/2019 Medical Decision Making-Imagin-29 CXR EXAMINATION: ONE XRAY VIEW OF THE CHEST 07/21/2019 9:04 pm COMPARISON: 07/19/2019 HISTORY: ORDERING SYSTEM PROVIDED HISTORY: possible aspiration TECHNOLOGIST PROVIDED HISTORY: possible aspiration respiratory status Acuity: Unknown Type of Exam: Initial FINDINGS: Cardiac and mediastinal contours are stable. Left upper extremity PICC tip remains in the SVC. Increased moderate left pleural effusion with left base opacity. No definite right pleural effusion. Increased pulmonary vascular congestion and perihilar ground-glass opacity. No pneumothorax. No acute osseous abnormality. Sternotomy hardware unchanged. Aortic root stent partially obscured. Impression 1. Increased pulmonary vascular congestion and perihilar ground-glass opacity concerning for worsening congestive heart failure. 2. Increased moderate layering left pleural effusion with left base opacity that may reflect atelectasis or pneumonia if the patient has fever or leukocytosis. CXR - 07/17/2019 1. Endotracheal tube remains in appropriate position. The enteric tube courses off the field of view in the upper abdomen. 2. Interval improved aeration of the lungs with findings of mild residual edema and left effusion. Brain and Cervical MRI- 07/16/2019 MRI brain: Slight decrease in conspicuity of multifocal recent infarcts. There is multifocal enhancement associated with the right posterior temporal occipital infarct compatible with subacute infarct. There is also a small amount of developing high T1 signal and decreased gradient echo signal suggesting petechial hemorrhagic staining. Multiple old infarcts Multifocal small-vessel ischemic change MRI cervical spine: Multilevel degenerative disc disease, greatest between C4 and C6-7. See above for details of each level. High signal in the rightward aspect of the cord at C3-4. This is age indeterminate and may be due to developing myelomalacia from cord compression below this level. Another consideration would be recent cord ischemic change. Other etiologies, to include neoplasm and transverse myelitis, for high signal in the cord are considered less likely at this time. Follow-up is recommended. EKG - Sinus bradycardia Nonspecific T wave abnormality Abnormal ECG When compared with ECG of 14-JUL-2019 00:09, Sinus rhythm has replaced Atrial fibrillation Vent. rate has decreased BY [address] no longer depressed in Anterior leads Nonspecific T wave abnormality has replaced inverted T waves in Anterolateral leads 07-13 CXR EXAMINATION: ONE XRAY VIEW OF THE CHEST 07/13/2019 5:43 am COMPARISON: July 12, 2019. HISTORY: ORDERING SYSTEM PROVIDED HISTORY: POST CABG TECHNOLOGIST PROVIDED HISTORY: POST CABG Reason for Exam: post cabg Acuity: Unknown Type of Exam: Unknown FINDINGS: Interval extubation. Feeding tube appears in unchanged position, with tip not visualized. Right subclavian central venous catheter appears in unchanged position. Right IJ central venous catheter sheath appears in unchanged position. Cardiac and mediastinal contours are enlarged but unchanged. Interval slight improvement in pulmonary interstitial edema. More focal pulmonary opacity within the left perihilar region appears reasonably similar to previous examination. Probable trace bilateral pleural effusion. No evidence of pneumothorax. No new osseous abnormalities. Impression 1. Interval improvement in pulmonary interstitial edema. Persistent left perihilar pulmonary opacity. Continued attention on follow-up examination is recommended. 2. Support hardware, as detailed above. CXR - 07/12/2019 Patchy airspace opacities bilaterally, may be related to pulmonary edema versus pneumonia, grossly stable. 07-11 CXR EXAMINATION: ONE XRAY VIEW OF THE CHEST 07/11/2019 9:53 am COMPARISON: 07/11/2019 HISTORY: ORDERING SYSTEM PROVIDED HISTORY: POST CABG TECHNOLOGIST PROVIDED HISTORY: POST CABG tube needs further adjustment pulled to 21 at lip Repositioning of endotracheal tube. FINDINGS: Interval repositioning of endotracheal tube which projects 3 cm from the janes. Enteric tube passes beneath the diaphragm. Right IJ sheath. Right subclavian line. Cardiomegaly. Prosthetic valve. Chest tubes. Small left effusion. No pneumothorax. Background edema. Impression Improved ET tube position now projecting 3.0 cm from the janes. Pulmonary edema. Small left effusion. EXAMINATION: ONE XRAY VIEW OF THE CHEST 07/19/2019 4:09 pm COMPARISON: Yesterday. HISTORY: ORDERING SYSTEM PROVIDED HISTORY: post extubation TECHNOLOGIST PROVIDED HISTORY: post extubation Reason for Exam: upr Acuity: Unknown Type of Exam: Unknown FINDINGS: Interval extubation. Moderate-sized left pleural effusion has increased. Left basilar and left perihilar consolidation remain. No pneumothorax. Stable cardiomegaly. Status post aortic valve repair. Left PICC with tip at the mid SVC. Impression 1. Increasing moderate-sized left pleural effusion. 2. Persistent left basilar and left perihilar consolidation or atelectasis. 3. Interval extubation. Medical Decision Gujafh-Rsympchf-Xrsqg: 07/17/2019 10:16 AM - [place], jackie Incoming Lab Results From [email or web address] Specimen Information: Sputum, Suctioned Component Collected Lab Specimen Description 07/15/2019 11:48 AM [facility] .SUCTIONED SPUTUM Special Requests 07/15/2019 11:48 AM [facility] NOT REPORTED Direct Exam 07/15/2019 11:48 AM [facility] - [facility] < 10 EPITHELIAL CELLS/LPF Direct Exam 07/15/2019 11:48 AM [facility] - [facility] >25 NEUTROPHILS/LPF Direct Exam Abnormal 07/15/2019 11:48 AM [facility] - [facility] PREDOMINANT ORGANISM: GRAM NEGATIVE RODS Direct Exam Abnormal 07/15/2019 11:48 AM [facility] - [facility] MIXED BACTERIAL MORPHOTYPES ALSO PRESENT ON GRAM STAIN. Culture Abnormal 07/15/2019 11:48 AM [facility] YEAST, NOT SILVIO ALBICANS OR SILVIO DUBLINIENSIS HEAVY GROWTH Culture 07/15/2019 11:48 AM [facility] NORMAL RESPIRATORY ROSEANNA SCANT GOWTH 07/16/2019 8:17 AM - [place], pn Incoming Lab Results From [email or web address] Specimen Information: Blood Component Collected Lab Specimen Description 07/15/2019 1:54 PM [facility] .BLOOD Special Requests 07/15/2019 1:54 PM [facility] L ARM 10 CC Culture 07/15/2019 1:54 PM [facility] NO GROWTH 17 HOURS 07/13/2019 1:00 PM - [place], pn Incoming Lab Results From [email or web address] Specimen Information: Tracheal Aspirate Component Collected Lab Specimen Description 07/11/2019 4:58 PM [facility] .TRACHEAL ASPIRATE Special Requests 07/11/2019 4:58 PM [facility] NOT REPORTED Direct Exam 07/11/2019 4:58 PM [facility] - [facility] >25 NEUTROPHILS/LPF Direct Exam 07/11/2019 4:58 PM [facility] - Mary < 10 EPITHELIAL CELLS/LPF Direct Exam 07/11/2019 4:58 PM [facility] NO SIGNIFICANT PATHOGENS SEEN Culture 07/11/2019 4:58 PM [facility] NORMAL RESPIRATORY ROSEANNA LIGHT GROWTH Medical Decision Making-Other: Note: Labs, medications, radiologic studies were reviewed with personal review of films Large amounts of data were reviewed Discussed with nursing Staff, shoe planner Infection Control and Prevention measures reviewed All prior entries were reviewed Administer medications as ordered Prognosis: Guarded Discharge planning reviewed Follow up as outpatient. Thank you for allowing us to participate in the care of this patient. Please call with questions. Titus Hyde MD Pager: - Office: * Alannah Love - 07/24/2019 11:40 AM EST Speech Language Pathology Speech Language Pathology [facility] Cognitive Treatment Note Date: 07/24/2019 Patient s Name: Eleanor Mcclain Diagnosis: Patient Active Problem List Diagnosis Code CAD, multiple vessel I25.10 Encephalopathy G93.40 Acute cerebral infarction (HCC) I63.9 Seizure ([facility]) R56.9 Encephalopathy, unspecified G93.40 Ischemic stroke ([facility]) I63.9 Chronic a-fib I48.20 Anticoagulated Z79.01 Acute postoperative respiratory failure ([facility]) J95.821 Cervical stenosis of spinal canal M48.02 Pain: 0/10 Cognitive Treatment Treatment time: 9:30-9:45 Subjective: [x] Alert [x] Cooperative [] Confused [] Agitated [] Lethargic Objective/Assessment: Orientation: Pt oriented to name, location, and birthdate, Pt not oriented to age Recall: Chaining Word Lists Associated Lists 5 Minute Interval: 2/3 independently, increased to 3/3 with min verbal cues Chaining Word Lists Associated Lists 10 Minute Interval: 0/3 independently, not increased with max verbal cues Memory and Mental Manipulation Word Order: 0/2 independently, increased to 2/2 with mod to max verbal cues Problem Solving/Reasoning: Category Members [place]: 12/20 independently, increased to 20/20 with min verbal cues Plan: [x] Continue ST services [] Discharge from ST: Discharge recommendations: Further therapy recommended at discharge. Completed by Alannah Love, Parimutuel Cashier Clinician Co-signed by Ambika Jang M.A.CCC/DIE REPAIRER STAMPING * Nicola Dutta PTA - 07/24/2019 10:52 AM EST Physical Therapy Facility/Department: [place] [address] Daily Treatment Note NAME: Eleanor Mcclain : 1950 Date of Service: 07/24/2019 Discharge Recommendations: Patient would benefit from continued therapy after discharge PT Equipment Recommendations Equipment Needed: Yes Mobility Devices: Walker Walker: Rolling Assessment Body structures, Functions, Activity limitations: Decreased functional mobility ;Decreased balance;Decreased ROM;Decreased endurance;Decreased strength;Decreased posture Assessment: Pt required modA to perform bed mobility, minAx2 to perform functional transfers and ambulate 25ft x 1,35' x 1 with 2 seated rest. Pt demonstrates significant decreases in endurance and functional mobility and would be unsafe to perform functional mobility without skilled assistance at t his time. Recommending continued skilled physical therapy to address functional mobility deficits and return pt to prior level of function. Prognosis: Good Decision Making: Medium Complexity PT Education: Goals;PT Role;Plan of Care Patient Education: Sternal precautions REQUIRES PT FOLLOW UP: Yes Activity Tolerance Activity Tolerance: Patient limited by endurance;Patient limited by fatigue Patient Diagnosis(es): The primary encounter diagnosis was CAD, multiple vessel. Diagnoses of S/P AVR (aortic valve replacement), Post-op pain, and Anticoagulated were also pertinent to this visit. has a past medical history of Aortic stenosis, CAD (coronary artery disease), Chronic kidney disease, CVA (cerebral vascular accident) (HCC), Diabetes mellitus (HCC), Hyperlipidemia, Hypertension, Kidney failure, Wears dentures, Wears prescription eyeglasses, and Wellness examination. has a past surgical history that includes Hysterectomy; Gallbladder surgery; Cardiac catheterization (Bilateral, 06/06/2019); Cholecystectomy; Colonoscopy; Coronary artery bypass graft (N/A, 07/03/2019); Coronary artery bypass graft (N/A, 07/03/2019); Sternum Debridement (N/A, 07/04/2019); and hc piccpowerpicc double (07/13/2019). Restrictions Restrictions/Precautions Restrictions/Precautions: Cardiac, General Precautions, Surgical Protocols, Fall Risk, Up as Tolerated Required Braces or Orthoses?: Yes(Sx Bra) Required Braces or Orthoses Other: Heart Hugger Brace Position Activity Restriction Sternal Precautions: No Pushing, No Pulling, 5# Lifting Restrictions Sternal Precautions: CABG X3 & AVR 07/03/19 Other position/activity restrictions: O2, Telemetry, Pacer Wires Subjective Pt sitting up in her chair. Pt's is present. Pt c/o 12/30 L LE Student RN present. RN informed. Orientation Overall Orientation Status: Within Functional Limits Objective Transfers Sit to Stand: Minimal Assistance; 2 person assistance Stand to sit: Minimal Assistance; 2 person assistance Comment: Pt needs verbal cues for hand placement with all transfers. Pt can be Min.A x 1 but usually ask her to be on her other side. Ambulation Ambulation?: Yes Ambulation 1 Surface: level tile Device: Rolling Walker Assistance: CGA Gait Deviations: Slow Jolanta;Shuffles Distance: 25' x 1, 35' x 1 with 2 seated rest. 02: 3L Stairs/Curb Stairs?: No Balance Posture: Fair(Increased forward flexed posture) Sitting - Static: Fair;+ Sitting - Dynamic: Fair;+ Standing - Static: Fair;- Standing - Dynamic: Poor;+ Comments: Standing balance assessed w/ RW Ex's Seated LE exercise program: Long Arc Quads,heel/toe raises, and marches. Reps: 20 x each with 2 lb wt on B LE's. Goals Short term goals Time Frame for Short term goals: 14 Short term goal 1: Pt to perform bed mobility CGA Short term goal 2: Demonstrate functional transfers within sternal precautions CGA Short term goal 3: Ambulate 200ft w/ RW CGA Short term goal 4: Tolerate 30 minutes of therapy to demo increased endurnace Patient Goals Patient goals : To get stronger Plan Plan Times per week: 6-7x/week, 1-2x/day Times per day: Daily Specific instructions for Next Treatment: RE-EVAL Current Treatment Recommendations: Strengthening, Transfer Training, Endurance Training, Patient/Caregiver Education & Training, ROM, Balance Training, Gait Training, Home Exercise Program, Functional Mobility Training, Stair training, Safety Education & Training Safety Devices Type of devices: Gait belt, Left in chair, Call light within reach, Nurse notified, Patient at riskfor falls Restraints Initially in place: No Therapy Time Individual Concurrent Group Co-treatment Time In 1015 Time Out 1045 Minutes 30 NICOLA DUTTA PTA * Rodrigo Patten MD - 07/23/2019 4:24 PM EST Pulmonary critical care progress note. Date and time: 07/23/2019 4:24 PM Patient's name: Eleanor Mcclain Patient's account/billing number: [id number] Patient's Date of : 1950 Age: 68 y.o. Date of Admission: 07/03/2019 5:13 AM Length of stay during current admission: 20 Primary Care Physician: Grayson Hernandez MD Code Status: Full Code Reason for initial consultation: Acute hypoxic respiratory failure ARDS/acute pulmonary edema SUBJECTIVE: OVERNIGHT EVENTS: 07/23/2019 No acute issues arti po - dysphagia 3 diet sats 98 % on 3 l nc Review of Systems Constitutional: Positive for fatigue. Negative for fever. Respiratory: Negative for shortness of breath, wheezing and stridor. Cardiovascular: Negative. Gastrointestinal: Negative. OBJECTIVE: VITAL SIGNS: BP (!) 144/55 Pulse 50 Temp 97.9 F (36.6 C) (Oral) Resp 12 Ht 5' 2 (1.575 m) Wt 175 lb 11.3 oz (79.7 kg) SpO2 98% BMI 32.14 kg/m Tmax over 24 hours: Temp (24hrs), Av.8 F (36.6 C), Min:97.3 F (36.3 C), Max:98.1 F (36.7 C) Patient Vitals for the past 6 hrs: BP Temp Temp src Pulse Resp SpO2 07/23/19 1600 (!) 144/55 50 12 98 % 07/23/19 1540 (!) 137/52 97.9 F (36.6 C) Oral (!) 49 13 98 % 07/23/19 1537 53 07/23/19 1455 (!) 130/50 51 15 99 % 07/23/19 1200 (!) 143/55 97.9 F (36.6 C) Oral 54 16 94 % Intake/Output Summary (Last 24 hours) at 07/23/2019 1624 Last data filed at 07/23/2019 1239 Gross per 24 hour Intake 726.4 ml Output 2125 ml Net -1398.6 ml Wt Readings from Last 2 Encounters: 07/22/19 175 lb 11.3 oz (79.7 kg) 06/25/19 147 lb (66.7 kg) Body mass index is 32.14 kg/m . PHYSICAL EXAMINATION: Head and neck atraumatic, normocephalic Lymph nodes-no cervical, supraclavicular lymphadenopathy Neck-no JVP elevation Lungs - clear ant Dec vent post bases CVS- S1, S2 regular. No S3 no S4, no murmurs- sternotomy Abdomen-nontender, nondistended. Bowel sounds are present. No organomegaly Lower extremity-no edema Upper extremity-no edema Neurological-grossly normal cranial nerves. Any additional physical findings: MEDICATIONS: Scheduled Meds: bumetanide 2 mg Oral BID enoxaparin 1 mg/kg Subcutaneous BID amLODIPine 10 mg Oral Daily hydrALAZINE 25 mg Oral 3 times per day amiodarone 200 mg Oral Daily cloNIDine 1 patch Transdermal Weekly FLUoxetine 10 mg Oral Daily insulin glargine 20 Units Subcutaneous Nightly sodium chloride flush 10 mL Intravenous BID vitamin B-1 100 mg Oral Daily spironolactone 50 mg Oral BID carvedilol 12.5 mg Oral BID WC lidocaine 1 % injection 5 mL Intradermal Once sodium chloride flush 10 mL Intravenous 2 times per day insulin lispro 0-18 Units Subcutaneous TID WC insulin lispro 0-9 Units Subcutaneous Nightly potassium chloride 40 mEq Intravenous Once famotidine 20 mg Oral Daily sodium chloride flush 10 mL Intravenous 2 times per day sodium chloride flush 10 mL Intravenous 2 times per day docusate sodium 100 mg Oral BID polyethylene glycol 17 g Oral Daily chlorhexidine 15 mL Mouth/Throat BID therapeutic multivitamin-minerals 1 tablet Oral Daily with breakfast atorvastatin 40 mg Oral Nightly clopidogrel 75 mg Oral Daily Continuous Infusions: dextrose PRN Meds: potassium chloride, 10 mEq, PRN hydrALAZINE, 15 mg, Q6H PRN QUEtiapine, 25 mg, Nightly PRN bumetanide, 2 mg, PRN labetalol, 10 mg, Q4H PRN sodium chloride flush, 10 mL, PRN sodium chloride flush, 10 mL, PRN sodium chloride flush, 10 mL, PRN calcium chloride IVPB, 1 g, PRN magnesium sulfate, 1 g, PRN potassium chloride, 20 mEq, PRN acetaminophen, 650 mg, Q4H PRN acetaminophen, 650 mg, Q4H PRN oxyCODONE-acetaminophen, 1 tablet, Q4H PRN Or oxyCODONE-acetaminophen, 2 tablet, Q4H PRN bisacodyl, 10 mg, Daily PRN ondansetron, 4 mg, Q8H PRN albumin human, 25 g, PRN glucose, 15 g, PRN dextrose, 12.5 g, PRN glucagon (rDNA), 1 mg, PRN dextrose, 100 mL/hr, PRN ABG Lab Results Component Value Date [id number] 31 07/21/2019 FIO2 15.0 07/21/2019 Laboratory findings: Complete Blood Count: Recent Labs 07/21/19 0339 07/22/19 0409 07/23/19 0638 WBC 15.1* 17.3* 10.8 HGB 8.5* 9.1* 9.1* HCT 28.5* 30.6* 31.2* PLT 287 291 276 Last 3 Blood Glucose: Recent Labs 07/22/19 0409 07/23/19 0638 07/23/19 0705 GLUCOSE 105* 88 95 PT/INR: Lab Results Component Value Date PROTIME 13.6 07/23/2019 INR 1.3 07/23/2019 PTT: Lab Results Component Value Date APTT 67.2 07/23/2019 Comprehensive Metabolic Profile: Recent Labs 07/22/19 0409 07/22/19 2055 07/23/19 0638 07/23/19 0705 NA 144 -- 144 143 K 3.7 3.7 4.0 3.8 CL 106 -- 104 104 CO2 24 -- 26 27 BUN 45* -- 34* 33* CREATININE 1.49* -- 1.29* 1.28* GLUCOSE 105* -- 88 95 CALCIUM 8.9 -- 9.0 8.9 Magnesium: Lab Results Component Value Date MG 2.6 07/23/2019 Phosphorus: Lab Results Component Value Date PHOS 2.9 07/23/2019 Ionized Calcium: Lab Results Component Value Date CAION 1.07 07/11/2019 ASSESSMENT: Active Problems: CAD, multiple vessel Encephalopathy Acute cerebral infarction (HCC) Seizure (HCC) Encephalopathy, unspecified Ischemic stroke (HCC) Chronic a-fib Anticoagulated Acute postoperative respiratory failure (HCC) resolved Cervical stenosis of spinal canal Resolved Problems: * No resolved hospital problems. * Plan and recommendation: Off antibiotics arti po Encourage is and deep breathing Sec clearance Pt ot * Titus Hyde MD - 07/23/2019 3:55 PM EST [facility] - Progress Note Today's Date and Time: 07/23/2019, 3:55 PM Impression : CAD s/p CABG and AVR S/p Redo CABG s/p graft dysfunction Hypovolemic shock - resolved Rt CVA Leukocytosis Encephalopathy Acute respiratory failure ARDS Recommendations: Leukocytosis is likely reactive Monitor off antibiotics D/C Unasyn D/C Ceftriaxone D/C cefepime Pulmonary toilet Monitor clinical progression Medical Decision Making/Summary/Discussion:07/23/2019 Patient with CAD and aortic stenosis S/P aortic valve replacement and CABG x 3 on 07-03-19 Re-operated because of bleeding from disruption of distal anastomosis of the RSVG to PLV Developed embolic Rt MCA infarct Developed respiratory failure requiring intubation. Lungs with pulmonary edema/ARDS picture Developed WBC elevation and low grade fever Evaluation not suggestive of overt infection but difficult to exclude early pulmonary infection. Will culture sputum and place on ceftriaxone MRSA screen negative. Chances of MRSA pneumonia are minimal. Sputum 07-15-19 with Gram negative bacilli .Switched to cefepime. Sputum culture suggests Gram negative bacilli are anaerobes. Switched to Unasyn. Dose adjusted for renal failure 07-20-19 Worsening Lt pleural effusion> Will D/C Unasyn 3-1 passed swallow to dys I with nectar thick liquids 3-2 Pt easily roused, slow to respond, follows commands, oriented x 3 Infection Control Recommendations [place] Precautions Antimicrobial Stewardship Recommendations Discontinuation of therapy Coordination of Outpatient Care: Estimated Length of IV antimicrobials: TBD Patient will need Midline Catheter Insertion: no Patient will need PICC line Insertion:no Patient will need: Home IV , Infusion Center, SNF, LTAC: Likely Patient will need outpatient wound care: TBD Chief complaint/reason for consultation: Low grade fever, trending WBC, erythema to Rt hand and Rt CVL site History of Present Illness: Eleanor Mcclain is a 68 y.o.-year-old female who was initially admitted on 07/03/2019. Patient seen at the request of Dr. Teresa INITIAL HISTORY: Pt has a history of aortic stenosis and mild to moderate mitral and tricuspid regurgitation. She developed a marked decline in her energy level, as well as increased SOB. Investigations showedthe presence of aortic stenosis and CAD. She presented on 07-03-19 for an elective CABG x 3 and aortic valve replacement. Post operatively pt developed hypotension and a significant increase in chest tube drainage (700 mlover 1 hour). She was urgently taken to the OR because of cardiac tamponade. The distal anastomosisof the RSVG to PLV had opened. The CABG was redone Pt required a total of 15 u blood products. Post operatively her chest was left open and she required vasopressor support. She was taken back to the OR on 07-04-19 for a sternal washout and closure. On 07-05 Sedation was discontinued, pt did not follow commands but was responsive to pain. She also developed an VIVIAN. Pt was extubated A CT brain was done 07-06-19 and showed possible subacute infarcts. On 07-[address] brain showed an evolving moderate Rt MCA infarct She continued to have altered mental status and intermittent periods of atrial fibrillation. On 07-07 she was started on Keppra for a possible seizure. 07-09 EEG showed disorganized and slow background suggesting moderate encephalopathy of non specificetiology. On 07-[address] showed stable appearance of Rt MCA infarct and redemonstration of multiple bilateral basal ganglia remote lacunar infarcts. She continued not following commands with intermittent periods agitation without purposeful movements. She then developed respiratory failure requiring bipap on 07-10. On 07-11 she pt developed respiratory arrest and CPR was initiated, She was successfully resuscitated and intubated. Pt then developed signs of ARDS with persistent hypoxia requiring high FiO2 concentration and ventilatory pressures. Suggest removal of cordis and Rt CVL due to skin excoriation and risk of infection OK to insert multi lumen PICC - Pt may require TPN 3-1 passed swallow to dys I with nectar thick liquids 3-2 Pt easily roused, slow to respond, follows commands, oriented x 3 CURRENT EXAMINATION: 07/23/2019 VS stable. Afebrile. No acute events overnight as per nurse Over weekend dropped her SaO2 and required bipap x 24 hours Pt appears to have recovered Passed swallow to dys I with nectar thick liquids WBC increased 8.4->22.4->19.2->21.3->19.4 ->23.1->15.1->17.3->10.8 EKG - no changes from previous EKG CXR 07-19- - now shows increasing size of left pleural effusion Pt extubated 07-19 and put on 6L NC. Tolerated well. Now breathing at 2L NC and saturating at 95% Has worsening Lt pleural effusion. Over weekend dropped her SaO2 and required bipap x 24 hours Pt appears to have recovered Nods to questions, answer questions by nodding. Not verbal. Moves all extremities. Labs, X rays reviewed: 07/23/2019 BUN: 30->28->26->22->23->26->33->34->44->51->33 Cr: 1.17->1.26->1.34->1.68->1.67->1.70->1.28 WBC: 21.3->19.4->23.1->15.1->17.3->10.8 Hb: 8.4->8.3->8.6->9.1 Plat: 246->244->370->276 Cultures: Urine: 07-03 no growth Blood: - 07-11: no growth - 07-16: no growth Sputum : 07-11 no growth to date 07-15 gram neg rods, mixed bacterial morphotypes on gram stain, yeast NOT silvio Wound: MRSA probe: negative CXR - 07-19 1. Increasing moderate-sized left pleural effusion. 2. Persistent left basilar and left perihilar consolidation or atelectasis. 3. Interval extubation. EKG 07-20-2019 Normal sinus rhythm Cannot rule out Inferior infarct (cited on or before 19-JUL-2019) Abnormal ECG When compared with ECG of 19-JUL-2019 06:28, T wave inversion no longer evident in Anterior leads Discussed with patient, RN, family.Dr Patten. I have personally reviewed the past medical history, past surgical history, medications, social history, and family history, and I have updated the database accordingly. Past Medical History: Past Medical History: Diagnosis Date Aortic stenosis - in [place] CAD (coronary artery disease) Chronic kidney disease CVA (cerebral vascular accident) ([facility]) 2011 no deficits Diabetes mellitus ([facility]) Dr. Richards Hyperlipidemia Hypertension Dr. Richards Kidney failure Wears dentures full upper plate, lower partial Wears prescription eyeglasses Wellness examination Dr. Richards seen in 03/2019 Past Surgical History: Past Surgical History: Procedure Laterality Date CABG WITH AORTIC VALVE REPLACEMENT N/A 07/03/2019 CABG CORONARY ARTERY BYPASS X3; AORTIC VALVE REPLACEMENT WITH 21MM INTUITY VALVE, ON PUMP, SWAN SHAWN, LOVE performed by Caro Teresa MD at [facility] [[email or web address]] CVSD CARDIAC CATHETERIZATION Bilateral 06/06/2019 Possible bypass & aortic valve replacement CHOLECYSTECTOMY COLONOSCOPY CORONARY ARTERY BYPASS GRAFT N/A 07/03/2019 CABG CORONARY ARTERY BYPASS REDO performed by Caro Teresa MD at [facility] [[email or web address]] CVSD GALLBLADDER SURGERY HC PICC POWERPICC DOUBLE 07/13/2019 HYSTERECTOMY STERNUM DEBRIDEMENT N/A 07/04/2019 STERNUM WASHOUT WITH STERNUM CLOSURE WITH STERNALOCK 360, 12 SELF-DRILLING LOCKING SCREWS 12MM, 4 SELFDRILLING LOCKING SCREWS 14MM. performed by Caro Teresa MD at [facility] Medications: bumetanide 2 mg Oral BID enoxaparin 1 mg/kg Subcutaneous BID amLODIPine 10 mg Oral Daily hydrALAZINE 25 mg Oral 3 times per day amiodarone 200 mg Oral Daily cloNIDine 1 patch Transdermal Weekly FLUoxetine 10 mg Oral Daily insulin glargine 20 Units Subcutaneous Nightly sodium chloride flush 10 mL Intravenous BID vitamin B-1 100 mg Oral Daily spironolactone 50 mg Oral BID carvedilol 12.5 mg Oral BID lidocaine 1 % injection 5 mL Intradermal Once sodium chloride flush 10 mL Intravenous 2 times per day insulin lispro 0-18 Units Subcutaneous TID insulin lispro 0-9 Units Subcutaneous Nightly potassium chloride 40 mEq Intravenous Once famotidine 20 mg Oral Daily sodium chloride flush 10 mL Intravenous 2 times per day sodium chloride flush 10 mL Intravenous 2 times per day docusate sodium 100 mg Oral BID polyethylene glycol 17 g Oral Daily chlorhexidine 15 mL Mouth/Throat BID therapeutic multivitamin-minerals 1 tablet Oral Daily with breakfast atorvastatin 40 mg Oral Nightly clopidogrel 75 mg Oral Daily Social History: Social History Socioeconomic History Marital status: Spouse name: Not on file Number of children: Not on file Years of education: Not on file Highest education level: Not on file Occupational History Not on file Social Needs Financial resource strain: Not on file Food insecurity: Worry: Not on file Inability: Not on file Transportation needs: Medical: Not on file Non-medical: Not on file Tobacco Use Smoking status: Never Smoker Smokeless tobacco: Never Used Substance and Sexual Activity Alcohol use: Never Frequency: Never Drug use: Never Sexual activity: Never Lifestyle Physical activity: Days per week: Not on file Minutes per session: Not on file Stress: Not on file Relationships Social connections: Talks on phone: Not on file Gets together: Not on file Attends rastafarian service: Not on file Active member of club or organization: Not on file Attends meetings of clubs or organizations: Not on file Relationship status: Not on file Intimate partner violence: Fear of current or ex partner: Not on file Emotionally abused: Not on file Physically abused: Not on file Forced sexual activity: Not on file Other Topics Concern Not on file Social History Narrative Not on file Family History: Family History Problem Relation Age of Onset Stroke Mother Other Mother car accident Heart Disease Father Kidney Disease Brother Alcohol Abuse Brother Allergies: Latex Review of Systems: 07/23/2019 pt easily roused, slow to respond but appropriate. SONIA x 4 Physical Examination : Patient Vitals for the past 8 hrs: BP Temp Temp src Pulse Resp SpO2 07/23/19 1540 (!) 137/52 97.9 F (36.6 C) Oral (!) 49 13 98 % 07/23/19 1537 53 07/23/19 1455 (!) 130/50 51 15 99 % 07/23/19 1200 (!) 143/55 97.9 F (36.6 C) Oral 54 16 94 % 07/23/19 0810 62 19 93 % 07/23/19 0800 (!) 188/70 98.1 F (36.7 C) Oral 62 19 (!) 85 % General Appearance: In chair, and in no apparent distress, on 2L O2 NC Head: Normocephalic, no trauma Eyes: Pupils equal, round, reactive to light; sclera anicteric; conjunctivae pink. No embolic phenomena. ENT: Oropharynx clear, without erythema, exudate, or thrush. No tenderness of sinuses. Mouth/throat: mucosa pink and moist. No lesions. Orally intubated. Neck:Supple, without lymphadenopathy. Thyroid normal, No bruits. Pulmonary/Chest: Clear, generally diminished, distant sounds. No dullness to percussion. Cardiovascular: Regular rate and rhythm with murmur,no rubs, or gallops. Abdomen: Soft, non tender. Bowel sounds hypoactive. No organomegaly All four Extremities: No cyanosis, clubbing, mild generalized edema, no effusions. Neurologic: Slow to respond but appropriate Skin: Warm and dry with good turgor.Signs of peripheral arterial insufficiency. No ulcerations. No open wounds. Medical Decision Making -Laboratory: I have independently reviewed/ordered the following labs: CBC with Differential: Recent Labs 07/22/19 04007/23/19 0638 WBC 17.3* 10.8 HGB 9.1* 9.1* HCT 30.6* 31.2* PLT 291 276 BMP: Recent Labs 07/22/19 0409 07/23/19 0638 07/23/19 0705 NA 144 -- 144 143 K 3.7 < > 4.0 3.8 CL 106 -- 104 104 CO2 24 -- 26 27 BUN 45* -- 34* 33* CREATININE 1.49* -- 1.29* 1.28* MG 2.8* -- 2.6 -- < > = values in this interval not displayed. Lab Results Component Value Date MUCUS NOT REPORTED 07/05/2019 RBC 3.20 07/23/2019 TRICHOMONAS NOT REPORTED 07/05/2019 WBC 10.8 07/23/2019 YEAST NOT REPORTED 07/05/2019 TURBIDITY CLEAR 07/05/2019 Lab Results Component Value Date CREATININE 1.28 07/23/2019 GLUCOSE 95 07/23/2019 Medical Decision Making-Imagin-29 CXR EXAMINATION: ONE XRAY VIEW OF THE CHEST 07/21/2019 9:04 pm COMPARISON: 07/19/2019 HISTORY: ORDERING SYSTEM PROVIDED HISTORY: possible aspiration TECHNOLOGIST PROVIDED HISTORY: possible aspiration respiratory status Acuity: Unknown Type of Exam: Initial FINDINGS: Cardiac and mediastinal contours are stable. Left upper extremity PICC tip remains in the SVC. Increased moderate left pleural effusion with left base opacity. No definite right pleural effusion. Increased pulmonary vascular congestion and perihilar ground-glass opacity. No pneumothorax. No acute osseous abnormality. Sternotomy hardware unchanged. Aortic root stent partially obscured. Impression 1. Increased pulmonary vascular congestion and perihilar ground-glass opacity concerning for worsening congestive heart failure. 2. Increased moderate layering left pleural effusion with left base opacity that may reflect atelectasis or pneumonia if the patient has fever or leukocytosis. CXR - 07/17/2019 1. Endotracheal tube remains in appropriate position. The enteric tube courses off the field of view in the upper abdomen. 2. Interval improved aeration of the lungs with findings of mild residual edema and left effusion. Brain and Cervical MRI- 07/16/2019 MRI brain: Slight decrease in conspicuity of multifocal recent infarcts. There is multifocal enhancement associated with the right posterior temporal occipital infarct compatible with subacute infarct. There is also a small amount of developing high T1 signal and decreased gradient echo signal suggesting petechial hemorrhagic staining. Multiple old infarcts Multifocal small-vessel ischemic change MRI cervical spine: Multilevel degenerative disc disease, greatest between C4 and C6-7. See above for details of each level. High signal in the rightward aspect of the cord at C3-4. This is age indeterminate and may be due to developing myelomalacia from cord compression below this level. Another consideration would be recent cord ischemic change. Other etiologies, to include neoplasm and transverse myelitis, for high signal in the cord are considered less likely at this time. Follow-up is recommended. EKG - Sinus bradycardia Nonspecific T wave abnormality Abnormal ECG When compared with ECG of 14-JUL-2019 00:09, Sinus rhythm has replaced Atrial fibrillation Vent. rate has decreased BY [address] no longer depressed in Anterior leads Nonspecific T wave abnormality has replaced inverted T waves in Anterolateral leads 07-13 CXR EXAMINATION: ONE XRAY VIEW OF THE CHEST 07/13/2019 5:43 am COMPARISON: July 12, 2019. HISTORY: ORDERING SYSTEM PROVIDED HISTORY: POST CABG TECHNOLOGIST PROVIDED HISTORY: POST CABG Reason for Exam: post cabg Acuity: Unknown Type of Exam: Unknown FINDINGS: Interval extubation. Feeding tube appears in unchanged position, with tip not visualized. Right subclavian central venous catheter appears in unchanged position. Right IJ central venous catheter sheath appears in unchanged position. Cardiac and mediastinal contours are enlarged but unchanged. Interval slight improvement in pulmonary interstitial edema. More focal pulmonary opacity within the left perihilar region appears reasonably similar to previous examination. Probable trace bilateral pleural effusion. No evidence of pneumothorax. No new osseous abnormalities. Impression 1. Interval improvement in pulmonary interstitial edema. Persistent left perihilar pulmonary opacity. Continued attention on follow-up examination is recommended. 2. Support hardware, as detailed above. CXR - 07/12/2019 Patchy airspace opacities bilaterally, may be related to pulmonary edema versus pneumonia, grossly stable. 07-11 CXR EXAMINATION: ONE XRAY VIEW OF THE CHEST 07/11/2019 9:53 am COMPARISON: 07/11/2019 HISTORY: ORDERING SYSTEM PROVIDED HISTORY: POST CABG TECHNOLOGIST PROVIDED HISTORY: POST CABG tube needs further adjustment pulled to 21 at lip Repositioning of endotracheal tube. FINDINGS: Interval repositioning of endotracheal tube which projects 3 cm from the janes. Enteric tube passes beneath the diaphragm. Right IJ sheath. Right subclavian line. Cardiomegaly. Prosthetic valve. Chest tubes. Small left effusion. No pneumothorax. Background edema. Impression Improved ET tube position now projecting 3.0 cm from the janes. Pulmonary edema. Small left effusion. EXAMINATION: ONE XRAY VIEW OF THE CHEST 07/19/2019 4:09 pm COMPARISON: Yesterday. HISTORY: ORDERING SYSTEM PROVIDED HISTORY: post extubation TECHNOLOGIST PROVIDED HISTORY: post extubation Reason for Exam: upr Acuity: Unknown Type of Exam: Unknown FINDINGS: Interval extubation. Moderate-sized left pleural effusion has increased. Left basilar and left perihilar consolidation remain. No pneumothorax. Stable cardiomegaly. Status post aortic valve repair. Left PICC with tip at the mid SVC. Impression 1. Increasing moderate-sized left pleural effusion. 2. Persistent left basilar and left perihilar consolidation or atelectasis. 3. Interval extubation. Medical Decision Cltvxb-Vhodjaeo-Egrxt: 07/17/2019 10:16 AM - [place] Incoming Lab Results From [employer] Specimen Information: Sputum, Suctioned Component Collected Lab Specimen Description 07/15/2019 11:48 AM [facility] .SUCTIONED SPUTUM Special Requests 07/15/2019 11:48 AM [facility] NOT REPORTED Direct Exam 07/15/2019 11:48 AM [facility] < 10 EPITHELIAL CELLS/LPF Direct Exam 07/15/2019 11:48 AM [facility] >25 NEUTROPHILS/LPF Direct Exam Abnormal 07/15/2019 11:48 AM [facility] PREDOMINANT ORGANISM: GRAM NEGATIVE RODS Direct Exam Abnormal 07/15/2019 11:48 AM [facility] MIXED BACTERIAL MORPHOTYPES ALSO PRESENT ON GRAM STAIN. Culture Abnormal 07/15/2019 11:48 AM [facility] YEAST, NOT SILVIO ALBICANS OR SILVIO DUBLINIENSIS HEAVY GROWTH Culture 07/15/2019 11:48 AM [facility] NORMAL RESPIRATORY ROSEANNA SCANT GOWTH 07/16/2019 8:17 AM - [place] Incoming Lab Results From [email or web address] Specimen Information: Blood Component Collected Lab Specimen Description 07/15/2019 1:54 PM [facility] .BLOOD Special Requests 07/15/2019 1:54 PM [facility] L ARM 10 CC Culture 07/15/2019 1:54 PM [facility] NO GROWTH 17 HOURS 07/13/2019 1:00 PM - [place], [place] Incoming Lab Results From [email or web address] Specimen Information: Tracheal Aspirate Component Collected Lab Specimen Description 07/11/2019 4:58 PM [facility] .TRACHEAL ASPIRATE Special Requests 07/11/2019 4:58 PM [facility] NOT REPORTED Direct Exam 07/11/2019 4:58 PM [facility] >25 NEUTROPHILS/LPF Direct Exam 07/11/2019 4:58 PM [facility] < 10 EPITHELIAL CELLS/LPF Direct Exam 07/11/2019 4:58 PM [facility] NO SIGNIFICANT PATHOGENS SEEN Culture 07/11/2019 4:58 [facility] NORMAL RESPIRATORY ROSEANNA LIGHT GROWTH Medical Decision Making-Other: Note: Labs, medications, radiologic studies were reviewed with personal review of films Large amounts of data were reviewed Discussed with nursing Staff, shoe planner Infection Control and Prevention measures reviewed All prior entries were reviewed Administer medications as ordered Prognosis: Guarded Discharge planning reviewed Follow up as outpatient. Thank you for allowing us to participate in the care of this patient. Please call with questions. Titus Hyde MD Pager: - Office: * Aislinn Kaye OTA - 07/23/2019 2:30 PM EST Occupational Therapy Facility/Department: [facility] [[email or web address] CAR 1 Daily Treatment Note NAME: Eleanor Mcclain : 1950 Date of Service: 07/23/2019 Discharge Recommendations: Patient would benefit from continued therapy after discharge Assessment Performance deficits / Impairments: Decreased functional mobility ;Decreased ADL status;Decreased high-level IADLs;Decreased balance;Decreased strength;Decreased endurance Assessment: Pt to benefit from skilled OT services post discharge due to the above deficits. Treatment Diagnosis: CABG X3 & AVR 07/03/19 Prognosis: Good REQUIRES OT FOLLOW UP: Yes Activity Tolerance Activity Tolerance: Patient limited by fatigue Safety Devices Safety Devices in place: Yes Type of devices: All fall risk precautions in place;Call light within reach;Patient at risk for falls;Left in chair;Nurse notified Patient Diagnosis(es): The encounter diagnosis was CAD, multiple vessel. has a past medical history of Aortic stenosis, CAD (coronary artery disease), Chronic kidney disease, CVA (cerebral vascular accident) (HCC), Diabetes mellitus (HCC), Hyperlipidemia, Hypertension, Kidney failure, Wears dentures, Wears prescription eyeglasses, and Wellness examination. has a past surgical history that includes Hysterectomy; Gallbladder surgery; Cardiac catheterization (Bilateral, 06/06/2019); Cholecystectomy; Colonoscopy; Coronary artery bypass graft (N/A, 07/03/2019); Coronary artery bypass graft (N/A, 07/03/2019); Sternum Debridement (N/A, 07/04/2019); and hc piccpowerpicc double (07/13/2019). Restrictions Restrictions/Precautions Restrictions/Precautions: Cardiac, General Precautions, Surgical Protocols, Fall Risk, Up as Tolerated Required Braces or Orthoses?: Yes(Sx Bra) Required Braces or Orthoses Other: Heart Hugger Brace Position Activity Restriction Sternal Precautions: No Pushing, No Pulling, 5# Lifting Restrictions Sternal Precautions: CABG X3 & AVR 07/03/19 Other position/activity restrictions: O2, Telemetry, Pacer Wires Subjective General Patient assessed for rehabilitation services?: Yes Family / Caregiver Present: No Pain Assessment Response to Pain Intervention: Patient Satisfied Vital Signs Patient Currently in Pain: Denies(2 Percocet on board) Orientation Objective ADL Feeding: Maximum assistance;Setup;Dentures;Increased time to complete;Bringing food to mouth assist;Scoop assist;Beverage management(d/t weakness and lethargy this date) Grooming: Maximum assistance;Setup;Verbal cueing;Increased time to complete(pt able to wash face w/little effort d/t lethargy, Max-wash/dry/comb hair) Pt up in chair and was setup for self care. Pt states took 2 Percocet prior to OT arrival and pt was barely able to participate in OT tx d/t lethargy and inability to complete self care tasks. Pt wore O2 throughout tx, kept eyes closed during entire tx. Pt required max vc's and max physical assist to complete grooming tasks this date. Balance Sitting Balance: Stand by assistance(sitting in recliner w/pillow support) Standing Balance: Unable to assess(pt is too lethargic to stand at this time) Plan Plan Times per week: 5x Goals Short term goals Time Frame for Short term goals: By discharge pt will.. Short term goal 1: demo supine<>sit with mod A x1 Short term goal 2: demo grooming task with set up and SBA Short term goal 3: demo UB ADL task with set up and min A Short term goal 4: demo LB ADL task with set up and mod A Short term goal 5: progress mobility as medically able Therapy Time Individual Concurrent Group Co-treatment Time In 1345 Time Out 1415 Minutes 30 total tx time ABIMBOLA ALICEA/Ada * Meseret Arechiga, NURSING PROGRAM MANAGER - COMMUNITY LIVING SPECIALIST - 07/23/2019 2:13 PM EST Daily Progress Note Neuro Critical Care Patient Name: Eleanor Mcclain Patient : 1950 Room/Bed: 1006/1006-01 Code Status: FULL Allergies: Allergies Allergen Reactions Latex Anaphylaxis Eyes swell shut, rash CHIEF COMPLAINT: Encephalopathy INTERVAL HISTORY Initial Presentation (Admitted 07/03/19): The patient is a 68 y.o. female with a history of HTN, HLD, DM 2, CKD, CVA (2011 with no residual deficits), CAD, and aortic stenosis who was initially admitted on 06/23/19 after a scheduled CABGx3 andaortic valve replacement. Patient had been symptomatic with increased fatigue and increased shortness of breath for the past year. Patient acutely became hypotensive (SBP 40's per nursing) post operatively with significant increase in chest tube drainage. Taken back to OR where she was found to have tamponade due to suture tear. Chest left open and then closed the next day. She has been in and out of atrial fibrillation post operatively. On 07/[address] Head was obtained as patient was not following commands which showed evidence of subacute infarct in the right posterior temporal lobe. Neurology was consulted and evaluated patient on 07/07. That evening, she was noted to have brief episode of seizure like activity described as full body shaking by RN. Loaded with 1g Keppra and continued on 500mg BID per Neurology. Repeat CT Head 07/08 showed evolving moderate size right MCA territory infarction. EEG was obtained on 07/09 showing no seizure activity, moderate encephalopathy. Patient was started on low intensity heparin, no bolus by Neurology on 07/09 in the setting of paroxysmal afib. A repeat CT Head was obtained on 07/10 which did not show any evidence of hemorrhagic conversion. Patientwas extubated on 07/09 with no improvement in neurological exam. She was re-intubated on 07/11 in theearly morning due to severe hypoxia and started on ARDS protocol which included administration of Nimbex. Neuro Critical Care asked to evaluate for further recommendations. Hospital Course: 07/11: Limited exam due to sedation/paralytic needed for ARDS protocol. MRI Brain ordered to evaluate for subcortical or brainstem infarction or any anoxic brain injury from near arrest post op. CT surgery amenable to removing pacing wires for MRI. 07/12: MRI Brain showed known acute to subacute infarct in the right temporal/occipital lobes, few scattered acute to subacute infarcts in the bilateral cerebral hemisphere and right cerebellar hemisphere. No significant acute infarction within left hemisphere. MRA Head/Neck revealed 80% focal stenos is left ICA, small caliber left MCA, occlusion left A1 MONSTER, 90% stenosis R POLICY SERVICE COORDINATOR. Results of imaging reviewed at length with family at bedside. Elevated TSH, normal free thyroxine 07/13: Thyroglobulin 10.7, Thyroglobulin antibody <20.0. LTME shwoed diffuse slowing, occasional central parietal rhythmic delta activity and right frontocentral sharp waves conferring increased risk for seizure. No evidence of subclinical seizure activity. 07/14: Largely unchanged examination. 07/15: Repeat Ammonia 41. Mild improvement in exam with more purposeful eye movements but still not tracking. ID changed Rocephin to Cefepime. 07/16: Awaiting MRI Brain W WO contrast, cervical spine. 07/17: MRI Brain W WO contrast re-demonstrated known infarctions. MRI Cervical spine showed multilevel degenerative disc disease most significant between C4 and C6-7, high signal C3-4 likely developing myelomalacia from cord compression; unlikely cord infarct in that location. Discussed results of MRI brain and cervical spine with family. No lesion on MRI to explain clinical exam and encephalopathy. Findings on cervical spine likely incidental. Will have Neurosurgery evaluate. Continue to see mild improvements in level of alertness and awareness. 07/18: Continued improvement in exam; following commands. No cuff leak; steroid course. Seroquel foragitation. 07/19: Extubated. 07/20: Failed speech bedside swallow evaluation, NG placed. Seroquel stopped. Prozac started 10mg QD. Last 24h: Neuro Critical [place]. Patient passed speech bedside swallow; Dysphagia minced and moist with nectar thick liquids. On exam this afternoon, patient is sitting up in the chair. She is oriented to person, place, and month. She is slow to respond and forgetful. Follows commands; moves all extremities purposefully, antigravity x4 extremities. CURRENT MEDICATIONS: SCHEDULED MEDICATIONS: bumetanide 2 mg Oral BID enoxaparin 1 mg/kg Subcutaneous BID amLODIPine 10 mg Oral Daily hydrALAZINE 25 mg Oral 3 times per day amiodarone 200 mg Oral Daily cloNIDine 1 patch Transdermal Weekly FLUoxetine 10 mg Oral Daily insulin glargine 20 Units Subcutaneous Nightly sodium chloride flush 10 mL Intravenous BID vitamin B-1 100 mg Oral Daily spironolactone 50 mg Oral BID carvedilol 12.5 mg Oral BID WC lidocaine 1 % injection 5 mL Intradermal Once sodium chloride flush 10 mL Intravenous 2 times per day insulin lispro 0-18 Units Subcutaneous TID WC insulin lispro 0-9 Units Subcutaneous Nightly potassium chloride 40 mEq Intravenous Once famotidine 20 mg Oral Daily sodium chloride flush 10 mL Intravenous 2 times per day sodium chloride flush 10 mL Intravenous 2 times per day docusate sodium 100 mg Oral BID polyethylene glycol 17 g Oral Daily chlorhexidine 15 mL Mouth/Throat BID therapeutic multivitamin-minerals 1 tablet Oral Daily with breakfast atorvastatin 40 mg Oral Nightly clopidogrel 75 mg Oral Daily CONTINUOUS INFUSIONS: dextrose PRN MEDICATIONS: potassium chloride, hydrALAZINE, QUEtiapine, bumetanide, labetalol, sodium chloride flush, sodium chloride flush, sodium chloride flush, calcium chloride IVPB, magnesium sulfate, potassium chloride, acetaminophen, acetaminophen, oxyCODONE-acetaminophen OR oxyCODONE-acetaminophen, bisacodyl, ondansetron, albumin human, glucose, dextrose, glucagon (rDNA), dextrose VITALS: Temperature Range: Temp: 97.9 F (36.6 C) Temp Av.8 F (36.6 C) Min: 97.3 F (36.3 C) Max: 98.1 F(36.7 C) BP Range: Systolic (24hrs), Av , Min:124 , Max:188 Diastolic (24hrs), Av, Min:50, Max:70 Pulse Range: Pulse Av.3 Min: 53 Max: 62 Respiration Range: Resp Av.2 Min: 15 Max: 19 Current Pulse Ox: SpO2: 94 % 24HR Pulse Ox Range: SpO2 Av.3 % Min: 85 % Max: 96 % Patient Vitals for the past 12 hrs: BP Temp Temp src Pulse Resp SpO2 07/23/19 1200 (!) 143/55 97.9 F (36.6 C) Oral 54 16 94 % 07/23/19 0810 62 19 93 % 07/23/19 0800 (!) 188/70 98.1 F (36.7 C) Oral 62 19 (!) 85 % 07/23/19 0400 (!) 148/58 98 F (36.7 C) Axillary 55 16 96 % Estimated body mass index is 32.14 kg/m as calculated from the following: Height as of this encounter: 5' 2 (1.575 m). Weight as of this encounter: 175 lb 11.3 oz (79.7 kg). []<16 Severe malnutrition []16 16.99 Moderate malnutrition []17 18.49 Mild malnutrition []18.5 24.9 Normal []25 29.9 Overweight (not obese) [x]30 34.9 Obese class 1 (Low Risk) []35 39.9 Obese class 2 (Moderate Risk) []?40 Obese class 3 (High Risk) RECENT LABS: Lab Results Component Value Date WBC 10.8 07/23/2019 HGB 9.1 (L) 07/23/2019 HCT 31.2 (L) 07/23/2019 PLT 276 07/23/2019 CHOL 252 (H) 05/10/2019 TRIG 95 07/09/2019 HDL 113 05/10/2019 ALT 17 07/09/2019 AST 29 07/09/2019 NA 143 07/23/2019 K 3.8 07/23/2019 CL 104 07/23/2019 CREATININE 1.28 (H) 07/23/2019 BUN 33 (H) 07/23/2019 CO2 27 07/23/2019 TSH 4.27 07/15/2019 INR 1.3 07/23/2019 LABA1C 6.3 (H) 06/25/2019 24 HOUR INTAKE/OUTPUT: Intake/Output Summary (Last 24 hours) at 07/23/2019 1413 Last data filed at 07/23/2019 1239 Gross per 24 hour Intake 726.4 ml Output 2125 ml Net -1398.6 ml IMAGING: Mra Head Wo Contrast Result Date: 07/12/2019 Known acute to subacute infarction in the right temporal lobe and lateral aspect of the right occipital lobe, stable in size since July 10, 2019. Associated local mass effect without midline shift. A few scattered tiny foci acute to subacute infarctions in the bilateral cerebral hemispheres andright cerebellar hemisphere, possibly embolic. Small old lacunar infarcts in the bilateral basal ganglia/periventricular white matter. 80% focal stenosis at the left ICA terminus. Asymmetrically small caliber of the M1 segment of left MCA. Occlusion of A1 segment of left MONSTER. 90% focal stenosis at the origin of the P2 segment of the right POLICY SERVICE COORDINATOR. Additional 80% focal stenosis along the P2 segments of the bilateral cable braider. 40% stenosis at the origins of the bilateral internal carotid arteries. The results were sent to radiology results communication. Mra Neck Wo Contrast Result Date: 07/12/2019 Known acute to subacute infarction in the right temporal lobe and lateral aspect of the right occipital lobe, stable in size since July 10, 2019. Associated local mass effect without midline shift. A few scattered tiny foci acute to subacute infarctions in the bilateral cerebral hemispheres andright cerebellar hemisphere, possibly embolic. Small old lacunar infarcts in the bilateral basal ganglia/periventricular white matter. 80% focal stenosis at the left ICA terminus. Asymmetrically small caliber of the M1 segment of left MCA. Occlusion of A1 segment of left MONSTER. 90% focal stenosis at the origin of the P2 segment of the right POLICY SERVICE COORDINATOR. Additional 80% focal stenosis along the P2 segments of the bilateral cable braider. 40% stenosis at the origins of the bilateral internal carotid arteries. The results were sent to radiology results communication. Mri Brain W Wo Contrast, MRI cervical spine Wo contrast Result Date: 07/16/2019 MRI brain: Slight decrease in conspicuity of multifocal recent infarcts. There is multifocal enhancement associated with the right posterior temporal occipital infarct compatible with subacute infarct. There is also a small amount of developing high T1 signal and decreased gradient echo signal suggesting petechial hemorrhagic staining. Multiple old infarcts Multifocal small-vessel ischemic changeMRI cervical spine: Multilevel degenerative disc disease, greatest between C4 and C6-7. See above for details of each level. High signal in the rightward aspect of the cord at C3-4. This is age indeterminate and may be due to developing myelomalacia from cord compression below this level. Another consideration would be recent cord ischemic change. Other etiologies, to include neoplasm and transverse myelitis, for high signal in the cord are considered less likely at this time. Follow-up is recommended. Mri Brain Wo Contrast Result Date: 07/12/2019 Known acute to subacute infarction in the right temporal lobe and lateral aspect of the right occipital lobe, stable in size since July 10, 2019. Associated local mass effect without midline shift. A few scattered tiny foci acute to subacute infarctions in the bilateral cerebral hemispheres andright cerebellar hemisphere, possibly embolic. Small old lacunar infarcts in the bilateral basal ganglia/periventricular white matter. 80% focal stenosis at the left ICA terminus. Asymmetrically small caliber of the M1 segment of left MCA. Occlusion of A1 segment of left MONSTER. 90% focal stenosis at the origin of the P2 segment of the right POLICY SERVICE COORDINATOR. Additional 80% focal stenosis along the P2 segments of the bilateral cable braider. 40% stenosis at the origins of the bilateral internal carotid arteries. The results were sent to radiology results communication. Labs and Images reviewed with: [] Dr. Wilder Rosales [x] Dr. Landen Lua [] Dr. Alan Pedroza [] There are no new interval images to review. PHYSICAL EXAM NEUROLOGIC: Mental Status: Alert and oriented to person, place, and months. Following commands. Cranial Nerves: III: Pupils: equal, round, reactive to light III,IV,: Extra Ocular Movements: intact VII: Facial strength: Intact Motor Exam: Generalized weakness, able to antigravity x4 extremities. 4-/5 strength in bilateral upper extremities. 3+/5 strength bilateral lower extremities. DRAINS: [x] There are no drains for Neuro Critical Care to monitor at this time. ASSESSMENT AND PLAN: The patient is a 68 yo female with a history of HTN, HLD, DM 2, CKD, CVA (2011 with no residual deficits), CAD, and aortic stenosis who was initially admitted on 07/03/19 after a scheduled CABGx3 and aortic valve replacement. Significant hypotension and bleeding post operatively, taken back to OR and found to have tamponade secondary to ruptured suture which was repaired. Chest closure performed 07/04. Found to have right MCA territory infarction in the setting of paroxysmal afib, likely cardioembolic. Encephalopathy, improving Continue Prozac 10mg QD Right MCA territory infarction, cardioembolic On Heparin infusion bridging to Coumadin Lipitor for secondary stroke prevention PT/OT/ST, PM&R consultation VIVIAN; Nephrology following Post CABG/aortic valve replacement, management per primary and Cards ID following; monitoring off antibiotics Neurosurgery evaluated cspine imaging; suggest patient follows up outpatient regarding cspine disease We will sign off. For any questions, changes in exam or patient status please contact Neuro Critical Care. Meseret Arechiga APRN - [facility] Neuro Critical Care Pager [phone] 07/23/2019 2:13 PM * Kelli Keen DIE REPAIRER STAMPING - 07/23/2019 11:31 AM EST Speech Language Pathology Speech Language Pathology [facility] Speech Language Treatment Note Date: 07/23/2019 Patient s Name: Eleanor Mcclain Diagnosis: Patient Active Problem List Diagnosis Code CAD, multiple vessel I25.10 Encephalopathy G93.40 Acute cerebral infarction (HCC) I63.9 Seizure (HCC) R56.9 Encephalopathy, unspecified G93.40 Ischemic stroke (HCC) I63.9 Chronic a-fib I48.20 Anticoagulated Z79.01 Acute postoperative respiratory failure (HCC) J95.821 Cervical stenosis of spinal canal M48.02 Pain: 0/10 Speech and Language Treatment Treatment time: 11:00-11:14 Subjective: [x] Alert [x] Cooperative [] Confused [] Agitated [] Lethargic Objective/Assessment: Orientation: Pt orientated to name, husbands name, anniversary, and month/day. Disorientated to current year and year. Auditory Comprehension: Automatic speech tasks: 3/3 with min prompts Yes/No questions: 6/6 with no prompts Cognition: Word generation: Moderately impaired Immediate recall: 3/3, 3/3 Delayed recall: 0/3 Verbal Sequencin/3 Opposites: 4/4 Other: It is recommended that the following new goals be implemented in future therapy sessions: 1. Pt will recall 3-5 units with and without distractions in 4/5 opportunities given minimal prompts. 2. Pt will be provided memory compensatory strategies to aid in recall. 3. Pt will recall biographical information with 100% accuracy given no cues. 4. Pt will generate 5-6 members from a concrete category in 5/5 opportunities given minimal cues. Plan: [x] Continue ST services [] Discharge from ST: Discharge recommendations: [] Inpatient Rehab [] Halfway Facility [] Outpatient Therapy [] Follow up at trauma clinic [x] Other: Treatment completed by: Kelli Keen M.A. [facility]-DIE REPAIRER STAMPING * Kelli Keen SLP - 07/23/2019 11:27 AM EST Speech Language Pathology Speech Language Pathology [facility] Dysphagia Treatment Note Date: 07/23/2019 Patient s Name: Eleanor Mcclain Diagnosis: dysphagia Patient Active Problem List Diagnosis Code CAD, multiple vessel I25.10 Encephalopathy G93.40 Acute cerebral infarction (HCC) I63.9 Seizure ([facility]) R56.9 Encephalopathy, unspecified G93.40 Ischemic stroke ([facility]) I63.9 Chronic a-fib I48.20 Anticoagulated Z79.01 Acute postoperative respiratory failure ([facility]) J95.821 Cervical stenosis of spinal canal M48.02 Pain: 0/10 Dysphagia Treatment Treatment time: 10:50-11:00 Subjective: [x] Alert [x] Cooperative [] Confused [] Agitated [] Lethargic Objective/Assessment: Pt. Seen for diet tolerance monitoring. Pt sitting in chair with at bedside. Pt observed with 2x sips of nectar with no s/s aspiration. Pt observed with 3x sip by straw of thin liquid with nos/s aspiration. Pt observed with 2x bites of soft peaches with no s/s aspiration and no difficulty with mastication. ST recommends diet upgrade to Dysphagia soft and bite/sized (Dysphagia III) with thin liquids. Consult with pt and on safe swallow protocol: small sips and bites, only feed when alert and awake and upright at 90 degrees for all PO intake. Both verbalized understanding. ST to continue to follow up for diet tolerance monitoring. Results and recommendations reported to RN. Recommend close monitoring for overt/clinical s/s of aspiration and D/C PO intake and complete. Plan: [x] Continue ST services [] Discharge from ST: Discharge recommendations: [] Inpatient Rehab [] Halfway Facility [] Outpatient Therapy [] Follow up at trauma clinic [x] Other: To be determined at discharge. Treatment completed by: Kelli Keen M.A. [facility] * Nghia Jackson MD - 07/23/2019 10:20 AM EST Nephrology Progress Note SUBJECTIVE Patient was seen and examined. Following patient for VIVIAN from ischemic ATN. Patient came in for CABG and AVR which was complicated with postoperative cardiac tamponade and hypotension, had graft displacement as well. Required redo procedure and chest wash out post surgery. Right posterior temporal/occipital subacute infarct. + PAF. Labs show a significant improvement in serum creatinine at 1.28 today. Electrolytes are within normal limits. The patient'sbaseline creatinine is 1.2-1.4. hemoglobin 8.5, platelets are 287. She is on Bumex 1 mg IV bid currently. Will switch to oral today She is awake alert and relatively comfortable. She denies any nausea or vomiting or belly pain. OBJECTIVE CURRENT TEMPERATURE: Temp: 98.1 F (36.7 C) MAXIMUM TEMPERATURE OVER 24HRS: Temp (24hrs), Av.8 F (36.6 C), Min:97.3 F (36.3 C), Max:98.1 F (36.7 C) CURRENT RESPIRATORY RATE: Resp: 19 CURRENT PULSE: Pulse: 62 CURRENT BLOOD PRESSURE: BP: (!) 188/70 24HR BLOOD PRESSURE RANGE: Systolic (24hrs), Av , Min:124 , Max:188 ; Diastolic (24hrs), Av, Min:50, Max:70 24HR INTAKE/OUTPUT: Intake/Output Summary (Last 24 hours) at 07/23/2019 1020 Last data filed at 07/23/2019 0922 Gross per 24 hour Intake 660 ml Output 2125 ml Net -1465 ml WEIGHT : Patient Vitals for the past 96 hrs (Last 3 readings): Weight 07/22/19 0600 175 lb 11.3 oz (79.7 kg) 07/20/19 0542 182 lb 12.2 oz (82.9 kg) PHYSICAL EXAM General: awake and alert and relatively comfortable Neck: no JVD, midline trachea, no accessory muscle use Chest: clear to auscultation bilaterally and no appreciable wheezes or rales and has diminished breath sounds at the bases Cardiac: Regular rate and rhythm with positive S1 and S2 Abdomen: Obese and soft and mildly distended, sluggish bowel sounds Extremities: + pitting lower extremity edema CURRENT MEDICATIONS bumetanide (BUMEX) injection 1 mg, BID potassium chloride 10 mEq/100 mL IVPB (Peripheral Line), PRN amLODIPine (NORVASC) tablet 10 mg, Daily hydrALAZINE (APRESOLINE) tablet 25 mg, 3 times per day amiodarone (CORDARONE) tablet 200 mg, Daily hydrALAZINE (APRESOLINE) injection 15 mg, Q6H PRN cloNIDine (CATAPRES) 0.2 MG/24HR 1 patch, Weekly QUEtiapine (SEROQUEL) tablet 25 mg, Nightly PRN FLUoxetine (PROZAC) 20 MG/5ML solution 10 mg, Daily insulin glargine (LANTUS) injection vial 20 Units, Nightly bumetanide (BUMEX) injection 2 mg, PRN sodium chloride flush 0.9 % injection 10 mL, BID heparin (porcine) 25,000 Units in sodium chloride 0.9 % 250 mL infusion, Continuous labetalol (NORMODYNE;TRANDATE) injection 10 mg, Q4H PRN vitamin B-1 (THIAMINE) tablet 100 mg, Daily spironolactone (ALDACTONE) tablet 50 mg, BID carvedilol (COREG) tablet 12.5 mg, BID WC lidocaine 1 % injection 5 mL, Once sodium chloride flush 0.9 % injection 10 mL, 2 times per day sodium chloride flush 0.9 % injection 10 mL, PRN insulin lispro (HUMALOG) injection vial 0-18 Units, TID WC insulin lispro (HUMALOG) injection vial 0-9 Units, Nightly potassium chloride 10 mEq/100 mL IVPB (Peripheral Line), Once famotidine (PEPCID) tablet 20 mg, Daily sodium chloride flush 0.9 % injection 10 mL, 2 times per day sodium chloride flush 0.9 % injection 10 mL, PRN sodium chloride flush 0.9 % injection 10 mL, 2 times per day sodium chloride flush 0.9 % injection 10 mL, PRN calcium chloride 1 g in sodium chloride 0.9 % 100 mL IVPB, PRN magnesium sulfate 1 g in dextrose 5% 100 mL IVPB, PRN potassium chloride 20 mEq/50 mL IVPB (Central Line), PRN acetaminophen (TYLENOL) tablet 650 mg, Q4H PRN acetaminophen (TYLENOL) suppository 650 mg, Q4H PRN oxyCODONE-acetaminophen (PERCOCET) 5-325 MG per tablet 1 tablet, Q4H PRN Or oxyCODONE-acetaminophen (PERCOCET) 5-325 MG per tablet 2 tablet, Q4H PRN docusate sodium (COLACE) capsule 100 mg, BID polyethylene glycol (GLYCOLAX) packet 17 g, Daily bisacodyl (DULCOLAX) suppository 10 mg, Daily PRN ondansetron (ZOFRAN) injection 4 mg, Q8H PRN chlorhexidine (PERIDEX) 0.12 % solution 15 mL, BID therapeutic multivitamin-minerals 1 tablet, Daily with breakfast atorvastatin (LIPITOR) tablet 40 mg, Nightly clopidogrel (PLAVIX) tablet 75 mg, Daily albumin human 5 % IV solution 25 g, PRN glucose (GLUTOSE) 40 % oral gel 15 g, PRN dextrose 50 % IV solution, PRN glucagon (rDNA) injection 1 mg, PRN dextrose 5 % solution, PRN LABS CBC: Recent Labs 07/21/19 03307/22/19 04007/23/19 0638 WBC 15.1* 17.3* 10.8 RBC 2.97* 3.21* 3.20* HGB 8.5* 9.1* 9.1* HCT 28.5* 30.6* 31.2* MCV 96.0 95.3 97.5 MCH 28.6 28.3 28.4 MCHC 29.8 29.7 29.2 RDW 16.0* 15.5* 15.6* PLT 287 291 276 MPV 10.0 9.7 9.9 BMP: Recent Labs 07/22/19 04007/22/19205407/23/19 0638 07/23/19 0705 NA 144 -- 144 143 K 3.7 3.7 4.0 3.8 CL 106 -- 104 104 CO2 24 -- 26 27 BUN 45* -- 34* 33* CREATININE 1.49* -- 1.29* 1.28* GLUCOSE 105* -- 88 95 CALCIUM 8.9 -- 9.0 8.9 PHOSPHORUS: Recent Labs 07/23/19 0638 PHOS 2.9 MAGNESIUM: Recent Labs 07/21/19 03307/22/19 04007/23/19 0638 MG 3.1* 2.8* 2.6 TETO: Lab Results Component Value Date TETO NEGATIVE 07/05/2019 SPEP: Lab Results Component Value Date PROT 5.7 07/09/2019 ALBCAL 3.6 07/05/2019 ALBPCT 76 07/05/2019 LABALPH 0.2 07/05/2019 LABALPH 0.4 07/05/2019 A1PCT 4 07/05/2019 A2PCT 8 07/05/2019 LABBETA 0.3 07/05/2019 BETAPCT 6 07/05/2019 GAMGLOB 0.3 07/05/2019 GGPCT 6 07/05/2019 PATH ELECTRONICALLY SIGNED. LOKI FRANCISCO M.D. 07/05/2019 UPEP: Lab Results Component Value Date TPU 37 07/05/2019 HEPBSAG: Lab Results Component Value Date HEPBSAG NONREACTIVE 07/05/2019 HEPCAB: Lab Results Component Value Date HEPCAB NONREACTIVE 07/05/2019 C3: Lab Results Component Value Date C3 48 (L) 07/05/2019 C4: Lab Results Component Value Date C4 11 07/05/2019 URINE SODIUM: Lab Results Component Value Date GELACIO <20 07/05/2019 URINE CREATININE: Lab Results Component Value Date LABCREA 121.8 07/05/2019 URINE PROTEIN: Lab Results Component Value Date TPU 37 07/05/2019 URINALYSIS: U/A: Lab Results Component Value Date NITRU NEGATIVE 07/05/2019 COLORU YELLOW 07/05/2019 PHUR 5.0 07/05/2019 WBCUA 2 TO 5 07/05/2019 RBCUA 2 TO 5 07/05/2019 MUCUS NOT REPORTED 07/05/2019 TRICHOMONAS NOT REPORTED 07/05/2019 YEAST NOT REPORTED 07/05/2019 BACTERIA NOT REPORTED 07/05/2019 SPECGRAV 1.035 07/05/2019 LEUKOCYTESUR NEGATIVE 07/05/2019 UROBILINOGEN Normal 07/05/2019 BILIRUBINUR NEGATIVE 07/05/2019 GLUCOSEU NEGATIVE 07/05/2019 KETUA MODERATE 07/05/2019 AMORPHOUS NOT REPORTED 07/05/2019 ASSESSMENT 1. Acute kidney injury due to ischemic acute tubular necrosis, post CABG. Creatinine 1.28 mg/dl this morning, 2. Chronic kidney disease stage III likely secondary to hypertensive diabetic disease. . Baseline creatinine seems to be around 1.2 to 1.4 mg/dl, with today's creatinine 1.49 mg/dL.. 3. Respiratory failure : 4. DM2 5. Essential hypertension 6. Anemia 7. CVA Neurology following PLAN 1. Change bumex to oral 2 mg bid 2. Continue clonidine patch 3. Follow labs as ordered 4. Agree with carvedilol and hydralazine as ordered 5. Continue spironolactone as ordered 6. Renal function getting closer to baseline 7. Ok for rehab. Will sign off. Call if needed Please do not hesitate to call with questions. * Anne Alexandre, PT - 07/23/2019 9:52 AM EST Physical Therapy Facility/Department: [place] [address] Re-Evaluation Assessment NAME: Eleanor Mcclain : 1950 Date of Service: 07/23/2019 Discharge Recommendations: Patient would benefit from continued therapy after discharge PT Equipment Recommendations Equipment Needed: Yes Mobility Devices: Walker Walker: Rolling Assessment Body structures, Functions, Activity limitations: Decreased functional mobility ;Decreased balance;Decreased ROM;Decreased endurance;Decreased strength;Decreased posture Assessment: Pt required modA to perform bed mobility, minAx2 to perform functional transfers and ambulate 3ft. Pt demonstrates significant decreases in endurance and functional mobility and would be unsafe to perform functional mobility without skilled assistance at this time. Recommending continued skilled physical therapy to address functional mobility deficits and return pt to prior level of function. Prognosis: Good Decision Making: Medium Complexity PT Education: Goals;PT Role;Plan of Care Patient Education: Sternal precautions REQUIRES PT FOLLOW UP: Yes Activity Tolerance Activity Tolerance: Patient limited by endurance;Patient limited by fatigue Patient Diagnosis(es): The encounter diagnosis was CAD, multiple vessel. has a past medical history of Aortic stenosis, CAD (coronary artery disease), Chronic kidney disease, CVA (cerebral vascular accident) (HCC), Diabetes mellitus (HCC), Hyperlipidemia, Hypertension, Kidney failure, Wears dentures, Wears prescription eyeglasses, and Wellness examination. has a past surgical history that includes Hysterectomy; Gallbladder surgery; Cardiac catheterization (Bilateral, 06/06/2019); Cholecystectomy; Colonoscopy; Coronary artery bypass graft (N/A, 07/03/2019); Coronary artery bypass graft (N/A, 07/03/2019); Sternum Debridement (N/A, 07/04/2019); and hc piccpowerpicc double (07/13/2019). Restrictions Restrictions/Precautions Restrictions/Precautions: Cardiac, General Precautions Required Braces or Orthoses?: Yes Required Braces or Orthoses Other: Heart Hugger Brace Position Activity Restriction Sternal Precautions: No Pushing, No Pulling, 5# Lifting Restrictions Other position/activity restrictions: Up in chair, ambulate patient Vision/Hearing Vision: Impaired Vision Exceptions: Wears glasses at all times Hearing: Within functional limits Subjective General Patient assessed for rehabilitation services?: Yes Response To Previous Treatment: Not applicable Family / Caregiver Present: No Follows Commands: Within Functional Limits Subjective Subjective: RN and pt in agreement for PT eval; pt supine in bed upon PT arrival, pt on 3L NC, pleasant and cooperative throughout. Pt re-eval performed to establish mobility goals this date. Pain Screening Patient Currently in Pain: Denies Vital Signs Patient Currently in Pain: Denies Orientation Orientation Overall Orientation Status: Within Functional Limits Social/Functional History Social/Functional History Lives With: Spouse Type of Home: House Home Layout: Two level, Able to Live on Main level with bedroom/bathroom, Performs ADL's on one level Home Access: Stairs to enter with rails Entrance Stairs - Number of Steps: 2-3 Entrance Stairs - Rails: Right Bathroom Shower/Tub: Tub/Shower unit Bathroom Toilet: Standard Bathroom Equipment: Grab bars in shower, Shower chair ADL Assistance: Independent Homemaking Assistance: Independent Homemaking Responsibilities: Yes Ambulation Assistance: Independent(Pt independently ambulates with no AD at baseline) Transfer Assistance: Independent Active Air Traffic Coordinator: Yes Mode of Transportation: Car 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 Cognition Cognition Overall Cognitive Status: WFL Objective Joint Mobility Spine: WFL ROM RLE: WFL ROM LLE: WFL ROM RUE: See OT assessment- PT/ OT coeval ROM LUE: See OT assessment- PT/ OT coeval Strength RLE Strength RLE: Exception Comment: Grossly 4-/5 at hip, knee, and ankle Strength LLE Strength LLE: Exception Comment: Grossly 4-/5 at hip, knee, and ankle Strength RUE Strength RUE: Exception Comment: Grossly 3+/5 at shoulder, 4-/5 at elbow and hand Strength LUE Comment: Grossly 3-/5 at shoulder, 3+/5 at elbow and hand Motor Control Gross Motor?: WFL Bed mobility Supine to Sit: Moderate assistance Sit to Supine: (JENISE- pt retired in bedside chair upon fiction and nonfiction writer prose's exit) Scooting: Minimal assistance Transfers Sit to Stand: Minimal Assistance; 2 person assistance Stand to sit: Minimal Assistance; 2 person assistance Comment: STS performed x2 to EOB and bedside commode. First STS performed with BUE MEDICAL INSTRUMENT TECHNICIAN, second performed with UE support on RW. Pt demonstrates posterior lean with forward flexed posture requiring cueing to correct. Ambulation Ambulation?: Yes Ambulation 1 Surface: level tile Device: Rolling Walker Assistance: Minimal assistance Gait Deviations: Slow Jolanta;Shuffles Distance: 3ft Comments: Pt ambulated 3ft to bedside commode. Pt's SpO2 86% following ambulation. Pt educated on pursed lip breathing with good return demo, SpO2 returned to 95% upon seated rest break in bedside chair. Stairs/Curb Stairs?: No Balance Posture: Fair(Increased forward flexed posture) Sitting - Static: Fair;+ Sitting - Dynamic: Fair;+ Standing - Static: Fair;- Standing - Dynamic: Poor;+ Comments: Standing balance assessed w/ RW Plan Plan Times per week: 6-7x/week, 1-2x/day Times per day: Daily Specific instructions for Next Treatment: RE-EVAL Current Treatment Recommendations: Strengthening, Transfer Training, Endurance Training, Patient/Caregiver Education & Training, ROM, Balance Training, Gait Training, Home Exercise Program, Functional Mobility Training, Stair training, Safety Education & Training Safety Devices Type of devices: Gait belt, Left in chair, Call light within reach, Nurse notified, Patient at riskfor falls Restraints Initially in place: No AM-PAC Score AM-PAC Inpatient Mobility without Stair Climbing Raw Score : 14 (07/23/19950) AM-PAC Inpatient without Stair Climbing T-Scale Score : 40.85 (07/23/19950) Mobility Inpatient CMS 0-100% Score: 53.33 (07/23/19950) Mobility Inpatient without Stair [facility] G-Code Modifier : CK (07/23/19950) Goals Short term goals Time Frame for Short term goals: 14 Short term goal 1: Pt to perform bed mobility CGA Short term goal 2: Demonstrate functional transfers within sternal precautions CGA Short term goal 3: Ambulate 200ft w/ RW CGA Short term goal 4: Tolerate 30 minutes of therapy to demo increased endurnace Patient Goals Patient goals : To get stronger Therapy Time Individual Concurrent Group Co-treatment Time In 903 Time Out 09 Minutes 24 Timed Code Treatment Minutes: 11 Minutes Anne Alexandre PT * Raisa Loyola - 07/23/2019 9:06 AM EST Pulmonary critical care progress note. Date and time: 07/23/2019 09:05 AM Patient's name: Eleanor Mcclain Patient's account/billing number: [id number] Patient's Date of : 1950 Age: 68 y.o. Date of Admission: 07/03/2019 5:13 AM Length of stay during current admission: 19 Primary Care Physician: Grayson Hernandez MD Code Status: Full Code Reason for initial consultation: Acute hypoxic respiratory failure ARDS/acute pulmonary edema SUBJECTIVE: OVERNIGHT EVENTS: 07/23/2019 No acute issues overnight Afebrile, SBP 120s-180s, saturating 93% on nasal cannula Alert and oriented, answering all the questions Did not require BiPAP last night. Patient seen during PT- participating well, up with minimal assistance Creatinine improving. Passed swallow evaluation and took PO medications yesterday Total output over last 24-hour 1425 mL/kg Past Medical History: Diagnosis Date Aortic stenosis - benitez Carrasco CAD (coronary artery disease) Chronic kidney disease CVA (cerebral vascular accident) ([facility]) 2011 no deficits Diabetes mellitus ([facility]) Dr. Richards Hyperlipidemia Hypertension Dr. Richards Kidney failure Wears dentures full upper plate, lower partial Wears prescription eyeglasses Wellness examination Dr. Richards seen in 03/2019 Past Surgical History: Procedure Laterality Date CABG WITH AORTIC VALVE REPLACEMENT N/A 07/03/2019 CABG CORONARY ARTERY BYPASS X3; AORTIC VALVE REPLACEMENT WITH 21MM INTUITY VALVE, ON PUMP, SWAN SHAWN, LOVE performed by Caro eTresa MD at [facility] [[email or web address]] CVOR CARDIAC CATHETERIZATION Bilateral 06/06/2019 Possible bypass & aortic valve replacement CHOLECYSTECTOMY COLONOSCOPY CORONARY ARTERY BYPASS GRAFT N/A 07/03/2019 CABG CORONARY ARTERY BYPASS REDO performed by Caro Teresa MD at [facility] [[email or web address]] CVOR GALLBLADDER SURGERY HC PICC POWERPICC DOUBLE 07/13/2019 HYSTERECTOMY STERNUM DEBRIDEMENT N/A 07/04/2019 STERNUM WASHOUT WITH STERNUM CLOSURE WITH STERNALOCK 360, 12 SELF-DRILLING LOCKING SCREWS 12MM, 4 SELFDRILLING LOCKING SCREWS 14MM. performed by Caro Teresa MD at [facility] [[email or web address]] CVOR Allergies: Allergies Allergen Reactions Latex Anaphylaxis Eyes swell shut, rash Home Meds: Prior to Admission medications Medication Sig Start Date End Date Taking? Authorizing Provider amLODIPine (NORVASC) 10 MG tablet Take 10 mg by mouth daily 03/18/19 Yes Historical Provider, clopidogrel (PLAVIX) 75 MG tablet Take 75 mg by mouth daily 03/18/19 Yes Historical Provider, FLUoxetine (PROZAC) 40 MG capsule Take 40 mg by mouth daily 03/18/19 Yes Historical Provider, gemfibrozil (LOPID) 600 MG tablet Take 600 mg by mouth 2 times daily 03/18/19 Yes Historical Provider, losartan (COZAAR) 100 MG tablet Take 100 mg by mouth daily 03/18/19 Yes Historical Provider, metFORMIN (GLUCOPHAGE) 1000 MG tablet Take 1,000 mg by mouth 2 times daily 03/18/19 Yes Historical Provider, spironolactone (ALDACTONE) 25 MG tablet Take 25 mg by mouth 2 times daily 03/18/19 Yes Historical Provider, traZODone (DESYREL) 50 MG tablet Take 25 mg by mouth nightly 04/30/19 Yes Historical Provider, Potassium 99 MG TABS Take 30 mg by mouth 2 times daily Yes Historical Provider, aspirin 81 MG tablet Take 325 mg by mouth daily Yes Historical Provider, niacin 500 MG extended release capsule Take 500 mg by mouth Historical Provider, NONFORMULARY Take 1 tablet by mouth daily Preser vision ARED Historical Provider, tiZANidine (ZANAFLEX) 4 MG tablet Take 4 mg of ampicillin by mouth Takes as needed 10/20/12 Historical Provider, magnesium 30 MG tablet Take 30 mg by mouth 2 times daily Historical Provider, diphenhydrAMINE (BENADRYL) 25 MG capsule Take 25 mg by mouth every 6 hours as needed for Itching Historical Provider, MD [employer] (COLON-AID) CAPS Take by mouth Historical Provider, Social History: TOBACCO: reports that she has never smoked. She has never used smokeless tobacco. ETOH: reports no history of alcohol use. OCCUPATION: Family History: Problem Relation Age of Onset Stroke Mother Other Mother car accident Heart Disease Father Kidney Disease Brother Alcohol Abuse Brother Physical Exam: Vitals: BP (!) 188/70 Pulse 62 Temp 98.1 F (36.7 C) (Oral) Resp 19 Ht 5' 2 (1.575 m) Wt 175 lb 11.3 oz (79.7 kg) SpO2 93% BMI 32.14 kg/m Physical Examination: Constitutional: Sitting up in chair, saturating at 93% in no acute respiratory distress. Head and neck atraumatic, normocephalic Lymph nodes-no cervical, supraclavicular lymphadenopathy Neck-no JVP elevation Lungs -b/l equal air entry CVS- S1, S2 regular. No S3 no S4, no murmurs Sternotomy Abdomen-nontender, nondistended. Bowel sounds are present. No organomegaly Lower extremity-no edema Upper extremity-no edema Neurological-alert, oriented to herself, moves all extremities Medications:Current Inpatient Scheduled Meds: bumetanide 1 mg Intravenous BID amLODIPine 10 mg Oral Daily hydrALAZINE 25 mg Oral 3 times per day amiodarone 200 mg Oral Daily cloNIDine 1 patch Transdermal Weekly FLUoxetine 10 mg Oral Daily insulin glargine 20 Units Subcutaneous Nightly sodium chloride flush 10 mL Intravenous BID vitamin B-1 100 mg Oral Daily spironolactone 50 mg Oral BID carvedilol 12.5 mg Oral BID WC lidocaine 1 % injection 5 mL Intradermal Once sodium chloride flush 10 mL Intravenous 2 times per day insulin lispro 0-18 Units Subcutaneous TID WC insulin lispro 0-9 Units Subcutaneous Nightly potassium chloride 40 mEq Intravenous Once famotidine 20 mg Oral Daily sodium chloride flush 10 mL Intravenous 2 times per day sodium chloride flush 10 mL Intravenous 2 times per day docusate sodium 100 mg Oral BID polyethylene glycol 17 g Oral Daily chlorhexidine 15 mL Mouth/Throat BID therapeutic multivitamin-minerals 1 tablet Oral Daily with breakfast atorvastatin 40 mg Oral Nightly clopidogrel 75 mg Oral Daily Continuous Infusions: heparin 25,000 units in 0.9% sodium chloride 250 mL infusion 16 Units/kg/hr (07/23/19 0301) dextrose PRN Meds:potassium chloride, hydrALAZINE, QUEtiapine, bumetanide, labetalol, sodium chloride flush,sodium chloride flush, sodium chloride flush, calcium chloride IVPB, magnesium sulfate, potassium chloride, acetaminophen, acetaminophen, oxyCODONE-acetaminophen OR oxyCODONE-acetaminophen, bisaco dyl, ondansetron, albumin human, glucose, dextrose, glucagon (rDNA), dextrose LABS:- CBC: Recent Labs 07/21/1933807/22/1940807/23/19 0638 WBC 15.1* 17.3* 10.8 HGB 8.5* 9.1* 9.1* PLT 287 291 276 BMP: Recent Labs 07/22/1940807/22/19205407/23/19 0638 07/23/19 0705 NA 144 -- 144 143 K 3.7 3.7 4.0 3.8 CL 106 -- 104 104 CO2 24 -- 26 27 BUN 45* -- 34* 33* CREATININE 1.49* -- 1.29* 1.28* GLUCOSE 105* -- 88 95 Hepatic: No results for input(s): AST, ALT, ALB, BILITOT, ALKPHOS in the last 72 hours. Amylase: No results found for: AMYLASE Lipase: No results found for: LIPASE CARDIAC ENZYMES:No results for input(s): CKTOTAL, CKMB, CKMBINDEX, TROPONINI in the last 72 hours. BNP: No results for input(s): BNP in the last 72 hours. Lipids: No results for input(s): CHOL, HDL in the last 72 hours. Invalid input(s): LDLCALCU ABGs: No results found for: PHART, PO2ART, [id number] INR: Recent Labs 07/21/1933807/22/1940807/23/19 0638 INR 1.2 1.2 1.3 Thyroid: Lab Results Component Value Date TSH 4.27 07/15/2019 Urinalysis: No results for input(s): BACTERIA, BLOODU, CLARITYU, COLORU, PHUR, PROTEINU, RBCUA, SPECGRAV, BILIRUBINUR, NITRU, WBCUA, LEUKOCYTESUR, GLUCOSEU in the last 72 hours. Cultures:- Radiology/Imaging: Ct Head Wo Contrast Result Date: 07/10/2019 1. Stable appearance of right temporal lobe subacute infarct, as discussed above. 2. Redemonstration of multifocal bilateral basal ganglia remote lacunar infarcts. Mra Head Wo Contrast Result Date: 07/12/2019 Known acute to subacute infarction in the right temporal lobe and lateral aspect of the right occipital lobe, stable in size since July 10, 2019. Associated local mass effect without midline shift. A few scattered tiny foci acute to subacute infarctions in the bilateral cerebral hemispheres andright cerebellar hemisphere, possibly embolic. Small old lacunar infarcts in the bilateral basal ganglia/periventricular white matter. 80% focal stenosis at the left ICA terminus. Asymmetrically small caliber of the M1 segment of left MCA. Occlusion of A1 segment of left MONSTER. 90% focal stenosis at the origin of the P2 segment of the right POLICY SERVICE COORDINATOR. Additional 80% focal stenosis along the P2 segments of the bilateral cable braider. 40% stenosis at the origins of the bilateral internal carotid arteries. The results were sent to radiology results communication. Xr Chest Portable Result Date: 07/16/2019 Interval advancement of the enteric tube and the tip is not well seen. To be safe, retraction of the tube 1-1.5 cm may be useful to ensure it is separate from the carinal region. Slight worsening in multifocal airspace disease. The findings were sent to the Radiology Results Communication Center at6:46 am on 07/15/2019to be communicated to a licensed caregiver. Xr Chest Portable Result Date: 07/16/2019 X-ray not significantly changed Xr Chest Portable Result Date: 07/14/2019 *Endotracheal tube tip approximately 6 cm of the janes. *Interval increased interstitial prominence/vascular congestion with persistent left perihilar opacity and probable trace effusions. Xr Chest Portable Result Date: 07/13/2019 1. Interval improvement in pulmonary interstitial edema. Persistent left perihilar pulmonary opacity. Continued attention on follow-up examination is recommended. 2. Support hardware, as detailed above. Xr Chest Portable Result Date: 07/12/2019 Patchy airspace opacities bilaterally, may be related to pulmonary edema versus pneumonia, grossly stable. Stable mild cardiomegaly. Xr Chest Portable Result Date: 07/11/2019 Improved ET tube position now projecting 3.0 cm from the janes. Pulmonary edema. Small left effusion. Xr Chest Portable Result Date: 07/11/2019 Endotracheal tube placement with the tip suspected to be approximately 2 cm above the level of the janes. Increased left pleural effusion. Underlying pneumonia is not excluded. Xr Chest Portable Result Date: 07/11/2019 Endotracheal tube tip is still in the right mainstem bronchus and should be retracted approximately4-5 cm. Otherwise stable appearance of the chest. Xr Chest Portable Result Date: 07/10/2019 Persistent pulmonary edema. Mra Neck Wo Contrast Result Date: 07/12/2019 Known acute to subacute infarction in the right temporal lobe and lateral aspect of the right occipital lobe, stable in size since July 10, 2019. Associated local mass effect without midline shift. A few scattered tiny foci acute to subacute infarctions in the bilateral cerebral hemispheres andright cerebellar hemisphere, possibly embolic. Small old lacunar infarcts in the bilateral basal ganglia/periventricular white matter. 80% focal stenosis at the left ICA terminus. Asymmetrically small caliber of the M1 segment of left MCA. Occlusion of A1 segment of left MONSTER. 90% focal stenosis at the origin of the P2 segment of the right POLICY SERVICE COORDINATOR. Additional 80% focal stenosis along the P2 segments of the bilateral cable braider. 40% stenosis at the origins of the bilateral internal carotid arteries. The results were sent to radiology results communication. Mri Brain Wo Contrast Result Date: 07/12/2019 Known acute to subacute infarction in the right temporal lobe and lateral aspect of the right occipital lobe, stable in size since July 10, 2019. Associated local mass effect without midline shift. A few scattered tiny foci acute to subacute infarctions in the bilateral cerebral hemispheres andright cerebellar hemisphere, possibly embolic. Small old lacunar infarcts in the bilateral basal ganglia/periventricular white matter. 80% focal stenosis at the left ICA terminus. Asymmetrically small caliber of the M1 segment of left MCA. Occlusion of A1 segment of left MONSTER. 90% focal stenosis at the origin of the P2 segment of the right POLICY SERVICE COORDINATOR. Additional 80% focal stenosis along the P2 segments of the bilateral cable braider. 40% stenosis at the origins of the bilateral internal carotid arteries. The results were sent to radiology results communication. (See actual reports for details) Assessment and Plan 2. Acute hypoxemic respiratory failure requiring mechanical ventilation.- extubated 07/19 3. Status post AVR and CABG 07/03/2019. 4. Status post tamponade from distal anastomosis SVG-PLV site bleeding status post repair 07/03/2019. 5. Sternal closure 07/04/2019. 6. Acute right temporal /ischemic CVA Gram stain shows gram-negative rods gram-negative pneumonia pneumonia. 7. Possible seizure. 8. Acute encephalopathy secondary to above. 9. VIVIAN on CKD- improving 10. Postop atrial fibrillation.now rate cont 11. Hypertension. 12. Hyperlipidemia. 13. Diabetes mellitus. Type II with hyperglycemia Dysphagia 14. Anemia- improving Plan and recommendation: Monitor of Abx per ID-Leukocytosis likely reactive Continue diuresis per nephrology- on Bumex 1mg BID Continue PT/OT Okay to step down Plan for rehab transfer- [facility], pre-CERT started Please note that this chart was generated using voice recognition IPGon dictation software. Although every effort was made to ensure the accuracy of this automated activity director, some errors in activity director may have occurred. Raisa Loyola MS4 [facility] [place]) 07/22/2019, 11:05 AM Raisa Loyola 07/23/2019, 9:06 AM * Dominguez Plummer PA - 07/23/2019 7:[address] surgical issues request transfer to medicine service. Appreciate assistance. Dominguez Plummer * Cole Arteaga DO - 07/23/2019 7:03 AM EST [place] Vice President Sales And Marketing Progress Note Date: 07/23/2019 Patient name: Eleanor Mcclain Date of admission: 07/03/2019 5:13 AM Date of : 1950 PCP: Grayson Hernandez MD Reason for Admission: CAD, multiple vessel [I25.10] Subjective: Patient seen and examined. Patient more awake and coherent today. She passed her bedside swallow and was able to take p.o. meds with applesauce yesterday. Her blood pressure is well controlled today.She diuresed well with extra dose of Bumex given yesterday. I/O last 3 completed shifts: In: 420 [I.V.:420] Out: 1425 [Urine:1425] No intake/output data recorded. In: 420 [I.V.:420] Out: 1425 [Urine:1425] Intake/Output Summary (Last 24 hours) at 07/23/2019 0703 Last data filed at 07/23/2019 0527 Gross per 24 hour Intake 420 ml Output 1425 ml Net -1005 ml Medications: Scheduled Meds: bumetanide 1 mg Intravenous BID amLODIPine 10 mg Oral Daily hydrALAZINE 25 mg Oral 3 times per day amiodarone 200 mg Oral Daily cloNIDine 1 patch Transdermal Weekly FLUoxetine 10 mg Oral Daily insulin glargine 20 Units Subcutaneous Nightly sodium chloride flush 10 mL Intravenous BID vitamin B-1 100 mg Oral Daily spironolactone 50 mg Oral BID carvedilol 12.5 mg Oral BID WC lidocaine 1 % injection 5 mL Intradermal Once sodium chloride flush 10 mL Intravenous 2 times per day insulin lispro 0-18 Units Subcutaneous TID WC insulin lispro 0-9 Units Subcutaneous Nightly potassium chloride 40 mEq Intravenous Once famotidine 20 mg Oral Daily sodium chloride flush 10 mL Intravenous 2 times per day sodium chloride flush 10 mL Intravenous 2 times per day docusate sodium 100 mg Oral BID polyethylene glycol 17 g Oral Daily chlorhexidine 15 mL Mouth/Throat BID therapeutic multivitamin-minerals 1 tablet Oral Daily with breakfast atorvastatin 40 mg Oral Nightly clopidogrel 75 mg Oral Daily insulin lispro 0-6 Units Subcutaneous Nightly Continuous Infusions: heparin 25,000 units in 0.9% sodium chloride 250 mL infusion 16 Units/kg/hr (07/23/19 0301) dextrose CBC: Recent Labs 07/21/19 0339 07/22/19 0409 WBC 15.1* 17.3* HGB 8.5* 9.1* PLT 287 291 BMP: Recent Labs 07/21/1933807/21/19204907/22/1940807/22/192054 NA 143 -- 144 -- K 4.4 -- 3.7 3.7 CL 103 -- 106 -- CO2 26 -- 24 -- BUN 57* -- 45* -- CREATININE 1.74* 1.78* 1.49* -- GLUCOSE 184* -- 105* -- Hepatic: No results for input(s): AST, ALT, ALB, BILITOT, ALKPHOS in the last 72 hours. Troponin: No results for input(s): TROPONINI in the last 72 hours. No results for input(s): TROPONINT in the last 72 hours. BNP: No results for input(s): PROBNP in the last 72 hours. No results for input(s): BNP in the last 72 hours. Lipids: No results for input(s): CHOL, HDL in the last 72 hours. Invalid input(s): LDLCALCU INR: Recent Labs 07/21/1933807/22/19408 INR 1.2 1.2 Objective: Vitals: BP (!) 148/58 Pulse 55 Temp 98 F (36.7 C) (Axillary) Resp 16 Ht 5' 2 (1.575 m) Wt 175 lb 11.3 oz (79.7 kg) SpO2 96% BMI 32.14 kg/m General appearance: extubated HEENT: Head: Normocephalic, atraumatic without any obvious abnormalities. Lungs: Coarse breath sound b/l Heart: raza, no murmurs, mechanical click Abdomen: soft, nontender with bowel sounds present in all 4 quadrants. Extremities: Lower extremity edema is present + bilaterally. Peripheral pulses in b/l LE present Integumentum:Intact with no rashes noted. Diagnostic Studies: EKG: Normal sinus rhythm ECHO: 06/27/2019 Left ventricle is normal in size, increased septal wall thickness, global left ventricular systolic function is low normal, calculated ejection fraction is 51%. Evidence of moderate (grade II) diastolic dysfunction. Peak instantaneous gradient 58 mmHg and mean gradient 34 mmHg, suggesting moderate to severe aortic stenosis. Mild to moderate mitral stenosis ( calculated valve area of 3.73cm2 with a mean gradient of 6mmHg.) Mild mitral regurgitation. Cath 05/2019 - LAD: p LAD 70% stenosis - LCX - co-dominant, OM1: 70% stenosis - RCA- 50% PDA 07/07/2019: 2D echo Global left ventricular systolic function is difficult to assess due to heart rate and rhythm but appears mildly reduced. Estimated ejection fraction is 45 % . Right ventricular function appears normal . A 21mm Intuity valve is seen in the aortic position. Mean gradient 13 mmHg is noted. No significant valvular regurgitation. No significant pericardial effusion is seen. MRI brain/neck: 07/13 Known acute to subacute infarction in the right temporal lobe and lateral aspect of the right occipital lobe, stable in size since July 10, 2019. Associated local mass effect without midline shift. A few scattered tiny foci acute to subacute infarctions in the bilateral cerebral hemispheres and right cerebellar hemisphere, possibly embolic. Small old lacunar infarcts in the bilateral basal ganglia/periventricular white matter. 80% focal stenosis at the left ICA terminus. Asymmetrically small caliber of the M1 segment of left MCA. Occlusion of A1 segment of left MONSTER. 90% focal stenosis at the origin of the P2 segment of the right POLICY SERVICE COORDINATOR. Additional 80% focal stenosis along the P2 segments of the bilateral cable braider. 40% stenosis at the origins of the bilateral internal carotid arteries. MRI 07/16 Slight decrease in conspicuity of multifocal recent infarcts. There is multifocal enhancement associated with the right posterior temporal occipital infarct compatible with subacute infarct. There is also a small amount of developing high T1 signal and decreased gradient echo signal suggesting petechial hemorrhagic staining. Multiple old infarcts Multifocal small-vessel ischemic change MRI cervical spine: Multilevel degenerative disc disease, greatest between C4 and C6-7. See above for details of each level. High signal in the rightward aspect of the cord at C3-4. This is age indeterminate and may be due to developing myelomalacia from cord compression below this level. Another consideration would be recent cord ischemic change. Other etiologies, to include neoplasm and transverse myelitis, for high signal in the cord are considered less likely at this time. Follow-up is recommended. Assessment / Acute Cardiac Problems: 1. Severe and MVD - sp AVR 21MM INTUITY VALVE 07/03/2019 and CABG - CAMPBELL-LAD, SVG- OM2, SVG- PVL(post AVR mean gradient 13 mmHg) 2. Post-op bleeding with tamponade related to distal anastomosis site bleeding from SVG-PLV s/p repair 07/03/2019 and now s/p closure of chest wall 07/04/2019 3. Paroxysmal A. fib - episode 07/06 and 07/07 and 07/14 - now in sinus and on amiodarone 4. Resp failure - re-intubated 07/11/2019 - extubated 07/19/2019 5. Intra OP LOVE LV function of 45%, was 51% on pre op TTE 6. Possible seizure episode 07/07 7. Hypertensive urgency 8. DM-2 9. Post OP blood loss anemia (Hgb 7.0) -s/p one unit PRBC 07/16/2019 10. VIVIAN - nephrology following, stable 11. Paroxysmal afib 12. Thrombocytopenia - resolved Plan of Treatment: 1. On Plavix, Lipitor, and heparin drip. Amiodarone reduced to 200 mg daily due to bradycardia in 50s. 2. On amlodipine 10 mg, hydralazine 25 tid, Coreg 12.5 bid, Aldactone 50 bid 3. Continue Bumex 1 mg IV bid, nephrology following 4. Wean clonidine patch when patient is able to take p.o. medications 5. On heparin drip for A. Fib - Initiated Coumadin yesterday 6. Speech following 7. Neurology and neurosurgery on board for stroke with possible petechial hemorrhage - recommended outpatient follow-up 8. Post OP management per CT surgery Kanwal Michel MD, Type Photography Supervisor Thank you for allowing us to participate in Eleanor Mcclain's care. Will follow with you. Attending Nuclear Medicine Medical Director Addendum: I have reviewed and performed the history, physical, subjective, objective, assessment, and plan with the resident/fellow and agree with the note. I performed the history and physical personally. I have made changes to the note above as needed. Thank you for allowing me to participate in the care of this patient, please do not hesitate to call if you have any questions. Cole Arteaga DO, FAC, GRACIA [place] Vice President Sales And Marketing [email or web address] * Jaimee Estes RN - 07/22/2019 5:46 PM EST Upon initial nursing assessment. Patient was on BiPAP. Taken off at 1030 hours and placed on Nasal Cannula 5 Liters. Weaned to 3 Liters. SpO2 remains at 95%. Patient has not been lethargic throughoutthe day and also this AM (1140 hours) speech therapy did bedside swallow study. Patient passed and nursing placed diet per verbal orders. Patient tolerating diet well. Remains alert and oriented to person and place. Denied having pain throughout the day. Mild diuresis with bumex today. Patient put out 725 via external catheter. Patient currently resting in bed with call light in hands and bed alarm maintained. All monitor alarms maintained. * Jacqueline Rudd, DIE REPAIRER STAMPING - 07/22/2019 12:02 PM EST Speech Language Pathology Facility/Department: [facility] CLINICAL BEDSIDE SWALLOW EVALUATION NAME: Eleanor Mcclain : 1950 ADMISSION DATE: 07/03/2019 ADMITTING DIAGNOSIS: has CAD, multiple vessel; Encephalopathy; Acute cerebral infarction (HCC); Seizure (HCC); Encephalopathy, unspecified; Ischemic stroke (HCC); Chronic a-fib; Anticoagulated; Acutepostoperative respiratory failure (HCC); and Cervical stenosis of spinal canal on their problem list. Recent Chest Xray: ( 07-21-2019 ) Impression 1. Increased pulmonary vascular congestion and perihilar ground-glass opacity concerning for worsening congestive heart failure. 2. Increased moderate layering left pleural effusion with left base opacity that may reflect atelectasis or pneumonia if the patient has fever or leukocytosis. Date of Eval: 07/22/2019 Evaluating Therapist: Jacqueline Rudd Current Diet level: Current Diet : NPO Current Liquid Diet : NPO Primary Complaint: Per chart, Mrs. Mcclain is a pleasant 68-year-old female who has a history of aortic stenosis. In 2016, she had mild aortic stenosis with [id number] mitral and tricuspid regurgitation, with normal ejection fraction. On 07/12/2017, she had another echocardiogram that showed an EF of 55% with severe dilatation of the left atrium and right atrium, and right ventricle normal.She had moderate aortic stenosis, read on an echocardiogram in [place]. Her last echocardiogram was on 03/30/2019, also at [place]. This showed normal EF of 55% to 60%. She had mildly dilated left atrium, the right-sided chambers were normal. She had severe mitral annular calcification, with moderate mitral regurgitation. She had a mildly calcified aortic valve and Doppler suggested severe aortic stenosis. She had an aortic valve area estimated at 0.8 cm2. I was asked to see her for aortic stenosis. She has noted a marked decline in her energy level and increased shortness of breath over the past year. This was noticed when she went to [facility] in 06/2018 and had difficulty with keeping up w ith the tour group. She denies chest pain or chest discomfort although she has some atypical discomfort, not related to activity. She has had some edema that has developed over the past several months, mainly in the evening. She feels that they are fairly normal in the morning. She denies any syncope or near syncope. Denies any palpitations. Pain: Pain Assessment Pain Assessment: 0-10 Pain Level: 0 Reason for Referral Eleanor Mcclain was referred for a bedside swallow evaluation to assess the efficiency of her swallow function, identify signs and symptoms of aspiration and make recommendations regarding safe dietary consistencies, effective compensatory strategies, and safe eating environment. Impression Patient presents with probable safe swallow for Dysphagia Minced & Moist (Dysphagia II) diet with Mildly Thick ([place] Thick) liquids as evidenced by no overt s/s of aspiration noted with these consistencies. Pt presented with +immediate cough with 2/5 trials puree & x1 trial thin liquid. Recommend close supervision, small sips and bites, only feed when alert and awake and upright at 90 degrees for all PO intake. Recommend close monitoring for overt/clinical s/s of aspiration and D/C POintake and complete Modified Barium Swallow Study should they occur. Results and recommendations reviewed with pt & family reported to RN who was present for BSSE. Dysphagia Diagnosis: Mild to moderate pharyngeal stage dysphagia Dysphagia Outcome Severity Scale: Level 3: Moderate dysphagia- Total assisstance, supervision or strategies. Two or more diet consistencies restricted Treatment Plan Requires DIE REPAIRER STAMPING Intervention: Yes Duration/Frequency of Treatment: 2-3x per week D/C Recommendations: Further therapy recommended at discharge. Recommended Diet and Intervention Diet Solids Recommendation: Dysphagia Minced and Moist (Dysphagia II) Liquid Consistency Recommendation: Mildly Thick ([place]) Recommended Form of Meds: PO Recommendations: Dysphagia treatment Therapeutic Interventions: Diet tolerance monitoring;Patient/Family education Compensatory Swallowing Strategies Compensatory Swallowing Strategies: Eat/Feed slowly;Small bites/sips;Upright as possible for all oral intake Treatment/Goals Dysphagia Goals: The patient will tolerate recommended diet without observed clinical signs of aspiration;The patient will tolerate repeat BSE when able. General Chart Reviewed: Yes Behavior/Cognition: Alert;Cooperative;Impulsive;Requires cueing Temperature Spikes Noted: No Respiratory Status: O2 via nasual cannula O2 Device: Nasal cannula Communication Observation: Functional Follows Directions: Simple Dentition: Dentures top;Dentures bottom Patient Positioning: Upright in bed Baseline Vocal Quality: Weak;Aphonic Consistencies Administered: Dysphagia Minced and Moist (Dysphagia II);Dysphagia Pureed (Dysphagia I);[place] - teaspoon;Thin - teaspoon Pain Level: 0 Vision/Hearing Vision Vision: Impaired Vision Exceptions: Wears glasses at all times Hearing Hearing: Within functional limits Oral Motor Deficits Oral/Motor Oral Motor: Within functional limits Oral Phase Dysfunction Oral Phase Oral Phase: WFL Indicators of Pharyngeal Phase Dysfunction Pharyngeal Phase Pharyngeal Phase: Exceptions Pharyngeal Phase Pharyngeal: Pt with +immediate cough with 2/5 trials puree & x1 trial thin liquid. no other s/sof aspiration observed with consistencies & trials. Prognosis Prognosis Prognosis for safe diet advancement: fair Individuals consulted Consulted and agree with results and recommendations: Patient;Family member;glue sprayer member consulted: children Education Patient Education: yes Patient Education Response: Verbalizes understanding Therapy Time DIE REPAIRER STAMPING Individual Minutes Time In: 1134 Time Out: 1152 Minutes: 18 Jacqueline Rudd, M.S. [facility]-DIE REPAIRER STAMPING 07/22/2019 12:03 PM * Enio Zarate MD - 07/22/2019 11:42 AM EST Nephrology Progress Note SUBJECTIVE Patient was seen and examined. Following patient for VIVIAN from ischemic ATN. Patient came in for CABG and AVR which was complicated with postoperative cardiac tamponade and hypotension, had graft displacement as well. Required redo procedure and chest wash out post surgery. Right posterior temporal/occipital subacute infarct. + PAF. She is undergoing a bedside swallow study today. Labs show a significant improvement in serum creatinine at 1.49 today. Electrolytes are within normal limits. The patient'sbaseline creatinine is 1.2-1.4. hemoglobin 8.5, platelets are 287. She is on Bumex 1 mg IV bid currently. She is awake alert and relatively comfortable. She denies any nausea or vomiting or belly pain. OBJECTIVE CURRENT TEMPERATURE: Temp: 97.4 F (36.3 C) MAXIMUM TEMPERATURE OVER 24HRS: Temp (24hrs), Av.6 F (36.4 C), Min:97.4 F (36.3 C), Max:97.9 F (36.6 C) CURRENT RESPIRATORY RATE: Resp: 16 CURRENT PULSE: Pulse: 62 CURRENT BLOOD PRESSURE: BP: (!) 153/63 24HR BLOOD PRESSURE RANGE: Systolic (24hrs), Av , Min:132 , Max:188 ; Diastolic (24hrs), Av, Min:56, Max:74 24HR INTAKE/OUTPUT: Intake/Output Summary (Last 24 hours) at 07/22/2019 1142 Last data filed at 07/22/2019 0659 Gross per 24 hour Intake 232 ml Output 1650 ml Net -1418 ml WEIGHT : Patient Vitals for the past 96 hrs (Last 3 readings): Weight 07/22/19 0600 175 lb 11.3 oz (79.7 kg) 07/20/19 0542 182 lb 12.2 oz (82.9 kg) 07/19/19 0600 158 lb 4.6 oz (71.8 kg) PHYSICAL EXAM General: awake and alert and relatively comfortable Neck: no JVD, midline trachea, no accessory muscle use Chest: clear to auscultation bilaterally and no appreciable wheezes or rales or rhonchi and has diminished breath sounds at the bases Cardiac: Regular rate and rhythm with positive S1 and S2 Abdomen: Obese and soft and mildly distended, sluggish bowel sounds Extremities: no pitting lower extremity edema CURRENT MEDICATIONS bumetanide (BUMEX) injection 1 mg, BID potassium chloride 10 mEq/100 mL IVPB (Peripheral Line), PRN amLODIPine (NORVASC) tablet 10 mg, Daily hydrALAZINE (APRESOLINE) tablet 25 mg, 3 times per day amiodarone (CORDARONE) tablet 200 mg, Daily hydrALAZINE (APRESOLINE) injection 15 mg, Q6H PRN cloNIDine (CATAPRES) 0.2 MG/24HR 1 patch, Weekly QUEtiapine (SEROQUEL) tablet 25 mg, Nightly PRN FLUoxetine (PROZAC) 20 MG/5ML solution 10 mg, Daily insulin glargine (LANTUS) injection vial 20 Units, Nightly bumetanide (BUMEX) injection 2 mg, PRN sodium chloride flush 0.9 % injection 10 mL, BID heparin (porcine) 25,000 Units in sodium chloride 0.9 % 250 mL infusion, Continuous labetalol (NORMODYNE;TRANDATE) injection 10 mg, Q4H PRN vitamin B-1 (THIAMINE) tablet 100 mg, Daily spironolactone (ALDACTONE) tablet 50 mg, BID carvedilol (COREG) tablet 12.5 mg, BID WC lidocaine 1 % injection 5 mL, Once sodium chloride flush 0.9 % injection 10 mL, 2 times per day sodium chloride flush 0.9 % injection 10 mL, PRN insulin lispro (HUMALOG) injection vial 0-18 Units, TID WC insulin lispro (HUMALOG) injection vial 0-9 Units, Nightly potassium chloride 10 mEq/100 mL IVPB (Peripheral Line), Once famotidine (PEPCID) tablet 20 mg, Daily sodium chloride flush 0.9 % injection 10 mL, 2 times per day sodium chloride flush 0.9 % injection 10 mL, PRN sodium chloride flush 0.9 % injection 10 mL, 2 times per day sodium chloride flush 0.9 % injection 10 mL, PRN calcium chloride 1 g in sodium chloride 0.9 % 100 mL IVPB, PRN magnesium sulfate 1 g in dextrose 5% 100 mL IVPB, PRN potassium chloride 20 mEq/50 mL IVPB (Central Line), PRN acetaminophen (TYLENOL) tablet 650 mg, Q4H PRN acetaminophen (TYLENOL) suppository 650 mg, Q4H PRN oxyCODONE-acetaminophen (PERCOCET) 5-325 MG per tablet 1 tablet, Q4H PRN Or oxyCODONE-acetaminophen (PERCOCET) 5-325 MG per tablet 2 tablet, Q4H PRN docusate sodium (COLACE) capsule 100 mg, BID polyethylene glycol (GLYCOLAX) packet 17 g, Daily bisacodyl (DULCOLAX) suppository 10 mg, Daily PRN ondansetron (ZOFRAN) injection 4 mg, Q8H PRN chlorhexidine (PERIDEX) 0.12 % solution 15 mL, BID therapeutic multivitamin-minerals 1 tablet, Daily with breakfast atorvastatin (LIPITOR) tablet 40 mg, Nightly clopidogrel (PLAVIX) tablet 75 mg, Daily albumin human 5 % IV solution 25 g, PRN insulin lispro (HUMALOG) injection vial 0-6 Units, Nightly glucose (GLUTOSE) 40 % oral gel 15 g, PRN dextrose 50 % IV solution, PRN glucagon (rDNA) injection 1 mg, PRN dextrose 5 % solution, PRN LABS CBC: Recent Labs 07/20/19 0648 07/21/1933807/22/19 040 WBC 23.1* 15.1* 17.3* RBC 2.96* 2.97* 3.21* HGB 8.6* 8.5* 9.1* HCT 27.8* 28.5* 30.6* MCV 93.9 96.0 95.3 MCH 29.1 28.6 28.3 MCHC 30.9 29.8 29.7 RDW 16.2* 16.0* 15.5* PLT 370 287 291 MPV 10.2 10.0 9.7 BMP: Recent Labs 07/20/19 0648 07/21/199 07/21/19204907/22/19 040 NA 142 143 -- 144 K 4.5 4.4 -- 3.7 CL 101 103 -- 106 CO2 25 26 -- 24 BUN 51* 57* -- 45* CREATININE 1.70* 1.74* 1.78* 1.49* GLUCOSE 174* 184* -- 105* CALCIUM 8.7 9.0 -- 8.9 PHOSPHORUS: Recent Labs 07/20/19 0648 PHOS 5.4* MAGNESIUM: Recent Labs 07/20/19 0648 07/21/1933807/22/19 0409 MG 2.8* 3.1* 2.8* TETO: Lab Results Component Value Date TETO NEGATIVE 07/05/2019 SPEP: Lab Results Component Value Date PROT 5.7 07/09/2019 ALBCAL 3.6 07/05/2019 ALBPCT 76 07/05/2019 LABALPH 0.2 07/05/2019 LABALPH 0.4 07/05/2019 A1PCT 4 07/05/2019 A2PCT 8 07/05/2019 LABBETA 0.3 07/05/2019 BETAPCT 6 07/05/2019 GAMGLOB 0.3 07/05/2019 GGPCT 6 07/05/2019 PATH ELECTRONICALLY SIGNED. LOKI FRANCISCO M.D. 07/05/2019 UPEP: Lab Results Component Value Date TPU 37 07/05/2019 HEPBSAG: Lab Results Component Value Date HEPBSAG NONREACTIVE 07/05/2019 HEPCAB: Lab Results Component Value Date HEPCAB NONREACTIVE 07/05/2019 C3: Lab Results Component Value Date C3 48 (L) 07/05/2019 C4: Lab Results Component Value Date C4 11 07/05/2019 URINE SODIUM: Lab Results Component Value Date GELACIO <20 07/05/2019 URINE CREATININE: Lab Results Component Value Date LABCREA 121.8 07/05/2019 URINE PROTEIN: Lab Results Component Value Date TPU 37 07/05/2019 URINALYSIS: U/A: Lab Results Component Value Date NITRU NEGATIVE 07/05/2019 COLORU YELLOW 07/05/2019 PHUR 5.0 07/05/2019 WBCUA 2 TO 5 07/05/2019 RBCUA 2 TO 5 07/05/2019 MUCUS NOT REPORTED 07/05/2019 TRICHOMONAS NOT REPORTED 07/05/2019 YEAST NOT REPORTED 07/05/2019 BACTERIA NOT REPORTED 07/05/2019 SPECGRAV 1.035 07/05/2019 LEUKOCYTESUR NEGATIVE 07/05/2019 UROBILINOGEN Normal 07/05/2019 BILIRUBINUR NEGATIVE 07/05/2019 GLUCOSEU NEGATIVE 07/05/2019 KETUA MODERATE 07/05/2019 AMORPHOUS NOT REPORTED 07/05/2019 ASSESSMENT 1. Acute kidney injury due to ischemic acute tubular necrosis, post CABG. Now creatinine is little above her baseline. Creatinine 1.49 mg/dl this morning, on IV Bumex. 2. Chronic kidney disease stage III likely secondary to hypertensive diabetic disease. . Baseline creatinine seems to be around 1.2 to 1.4 mg/dl, with today's creatinine 1.49 mg/dL.. 3. Respiratory failure : 4. DM2 5. Essential hypertension 6. Anemia 7. CVA Neurology following PLAN 1. Continue Bumex IV 1 mg every 12. 2. Continue clonidine patch 3. Follow labs as ordered 4. Agree with carvedilol and hydralazine as ordered 5. Continue spironolactone as ordered 6. Renal function getting closer to baseline 7. Speech Therapy evaluating with a bedside swallow study as currently NPO Please do not hesitate to call with questions. * Dianne Trevino, PT - 07/22/2019 11:20 AM EST Physical Therapy DATE: 07/22/2019 NAME: Eleanor Mcclain : 1950 Patient not seen this date for Physical Therapy due to: [] Blood transfusion in progress [] Hemodialysis [] Patient Declined [] Spine Precautions [] Strict Bedrest [] Surgery/ Procedure [] Testing [x] Other- pt on bipap, not appropriate for OOB mobility. PT will check back as time allows. [] PT being discontinued at this time. Patient independent. No further needs. [] PT being discontinued at this time as the patient has been transferred to palliative care. No further needs. Dianne Trevino PT * Luda Thapa MD - 07/22/2019 11:05 AM EST Pulmonary critical care progress note. Date and time: 07/22/2019 11:05 AM Patient's name: Eleanor Mcclain Patient's account/billing number: [id number] Patient's Date of : 1950 Age: 68 y.o. Date of Admission: 07/03/2019 5:13 AM Length of stay during current admission: 19 Primary Care Physician: Grayson Hernandez MD Code Status: Full Code Reason for initial consultation: Acute hypoxic respiratory failure ARDS/acute pulmonary edema SUBJECTIVE: OVERNIGHT EVENTS: 07/22/2019 No acute issues overnight Afebrile, blood pressure on higher side, heart rate on lower side Alert and oriented, answering all the questions Patient was confused yesterday in the evening, removed nasal cannula and telemetry, was placed on BiPAP Chest x-ray showed increased vascular congestion and perihilar groundglass opacity with left-sided pleural effusion with left base opacity Plan for swallow evaluation today With dose of Bumex 2 mg yesterday for 1 dose Urine output 222 5 mL over last 24-hour OBJECTIVE: VITAL SIGNS: BP (!) 153/63 Pulse 62 Temp 97.4 F (36.3 C) (Axillary) Resp 16 Ht 5' 2 (1.575 m) Wt 175 lb 11.3 oz (79.7 kg) SpO2 100% BMI 32.14 kg/m Tmax over 24 hours: Temp (24hrs), Av.6 F (36.4 C), Min:97.4 F (36.3 C), Max:97.9 F (36.6 C) Patient Vitals for the past 6 hrs: BP Temp Temp src Pulse Resp SpO2 Weight 07/22/19 0803 (!) 153/63 97.4 F (36.3 C) Axillary 07/22/19 0747 62 16 100 % 07/22/19 0700 62 15 100 % 07/22/19 0641 65 17 (!) 87 % 07/22/19 0600 61 15 96 % 175 lb 11.3 oz (79.7 kg) Intake/Output Summary (Last 24 hours) at 07/22/2019 1105 Last data filed at 07/22/2019 0659 Gross per 24 hour Intake 232 ml Output 1650 ml Net -1418 ml Wt Readings from Last 2 Encounters: 07/22/19 175 lb 11.3 oz (79.7 kg) 06/25/19 147 lb (66.7 kg) Body mass index is 32.14 kg/m . PHYSICAL EXAMINATION: Head and neck atraumatic, normocephalic Lymph nodes-no cervical, supraclavicular lymphadenopathy Neck-no JVP elevation Lungs -b/l equal air entry CVS- S1, S2 regular. No S3 no S4, no murmurs Sternotomy Abdomen-nontender, nondistended. Bowel sounds are present. No organomegaly Lower extremity-no edema Upper extremity-no edema Neurological-alert, oriented to herself, moves all extremities Any additional physical findings: MEDICATIONS: Scheduled Meds: bumetanide 1 mg Intravenous BID amLODIPine 10 mg Oral Daily hydrALAZINE 25 mg Oral 3 times per day amiodarone 200 mg Oral Daily cloNIDine 1 patch Transdermal Weekly FLUoxetine 10 mg Oral Daily insulin glargine 20 Units Subcutaneous Nightly sodium chloride flush 10 mL Intravenous BID vitamin B-1 100 mg Oral Daily spironolactone 50 mg Oral BID carvedilol 12.5 mg Oral BID WC lidocaine 1 % injection 5 mL Intradermal Once sodium chloride flush 10 mL Intravenous 2 times per day insulin lispro 0-18 Units Subcutaneous TID WC insulin lispro 0-9 Units Subcutaneous Nightly potassium chloride 40 mEq Intravenous Once famotidine 20 mg Oral Daily sodium chloride flush 10 mL Intravenous 2 times per day sodium chloride flush 10 mL Intravenous 2 times per day docusate sodium 100 mg Oral BID polyethylene glycol 17 g Oral Daily chlorhexidine 15 mL Mouth/Throat BID therapeutic multivitamin-minerals 1 tablet Oral Daily with breakfast atorvastatin 40 mg Oral Nightly clopidogrel 75 mg Oral Daily insulin lispro 0-6 Units Subcutaneous Nightly Continuous Infusions: heparin 25,000 units in 0.9% sodium chloride 250 mL infusion 12 Units/kg/hr (07/22/19 07) dextrose PRN Meds: potassium chloride, 10 mEq, PRN hydrALAZINE, 15 mg, Q6H PRN QUEtiapine, 25 mg, Nightly PRN bumetanide, 2 mg, PRN labetalol, 10 mg, Q4H PRN sodium chloride flush, 10 mL, PRN sodium chloride flush, 10 mL, PRN sodium chloride flush, 10 mL, PRN calcium chloride IVPB, 1 g, PRN magnesium sulfate, 1 g, PRN potassium chloride, 20 mEq, PRN acetaminophen, 650 mg, Q4H PRN acetaminophen, 650 mg, Q4H PRN oxyCODONE-acetaminophen, 1 tablet, Q4H PRN Or oxyCODONE-acetaminophen, 2 tablet, Q4H PRN bisacodyl, 10 mg, Daily PRN ondansetron, 4 mg, Q8H PRN albumin human, 25 g, PRN glucose, 15 g, PRN dextrose, 12.5 g, PRN glucagon (rDNA), 1 mg, PRN dextrose, 100 mL/hr, PRN VENT SETTINGS (Comprehensive) (if applicable): Vent Information $Ventilation: $Subsequent Day Ventilator Started: Yes Ventilator Stopped: Yes Ventilation Day(s): 7 Skin Assessment: Clean, dry, & intact Equipment ID: [id number] Equipment Changed: Suction catheter Vent Type: Servo i Vent Mode: CPAP Vt Ordered: 400 mL Pressure Ordered: 8 Rate Set: (S) 16 bmp Pressure Support: 6 cmH20 FiO2 : (S) 45 % Sensitivity: 3 PEEP/CPAP: 5 I Time/ I Time %: 0.9 s Humidification Source: HME Nitric Oxide/Epoprostenol In Use?: No Additional Respiratory Assessments Pulse: 62 Resp: 16 SpO2: 100 % End Tidal CO2: 33 (%) Position: Semi-Newton's Humidification Source: HME Oral Care Completed?: Yes Oral Care: Mouthwash, Lip moisturizer applied, Mouth swabbed Subglottic Suction Done?: Yes ABG Lab Results Component Value Date AAV4DKZ 31 07/21/2019 FIO2 15.0 07/21/2019 Laboratory findings: Complete Blood Count: Recent Labs 07/20/19 0648 07/21/1933807/22/19 0409 WBC 23.1* 15.1* 17.3* HGB 8.6* 8.5* 9.1* HCT 27.8* 28.5* 30.6* PLT 370 287 291 Last 3 Blood Glucose: Recent Labs 07/20/19 0648 07/21/1933807/22/19 0409 GLUCOSE 174* 184* 105* PT/INR: Lab Results Component Value Date PROTIME 12.4 07/22/2019 INR 1.2 07/22/2019 PTT: Lab Results Component Value Date APTT 59.4 07/22/2019 Comprehensive Metabolic Profile: Recent Labs 07/20/19 0648 07/21/1933807/21/19204907/22/19 0409 NA 142 143 -- 144 K 4.5 4.4 -- 3.7 CL 101 103 -- 106 CO2 25 26 -- 24 BUN 51* 57* -- 45* CREATININE 1.70* 1.74* 1.78* 1.49* GLUCOSE 174* 184* -- 105* CALCIUM 8.7 9.0 -- 8.9 Magnesium: Lab Results Component Value Date MG 2.8 07/22/2019 Phosphorus: Lab Results Component Value Date PHOS 5.4 07/20/2019 Ionized Calcium: Lab Results Component Value Date CAION 1.07 07/11/2019 Urinalysis: Troponin: No results for input(s): TROPONINI in the last 72 hours. Microbiology: Cultures during this admission: Blood cultures: [] None drawn [] Negative [] Positive (Details: ) Urine Culture: [] None drawn [] Negative [] Positive (Details: ) Sputum Culture: [] None drawn [] Negative [] Positive (Details: ) Endotracheal aspirate: [] None drawn [] Negative [] Positive (Details: ) Other pertinent Labs: Radiology/Imaging: Ct Head Wo Contrast Result Date: 07/10/2019 1. Stable appearance of right temporal lobe subacute infarct, as discussed above. 2. Redemonstration of multifocal bilateral basal ganglia remote lacunar infarcts. Mra Head Wo Contrast Result Date: 07/12/2019 Known acute to subacute infarction in the right temporal lobe and lateral aspect of the right occipital lobe, stable in size since July 10, 2019. Associated local mass effect without midline shift. A few scattered tiny foci acute to subacute infarctions in the bilateral cerebral hemispheres andright cerebellar hemisphere, possibly embolic. Small old lacunar infarcts in the bilateral basal ganglia/periventricular white matter. 80% focal stenosis at the left ICA terminus. Asymmetrically small caliber of the M1 segment of left MCA. Occlusion of A1 segment of left MONSTER. 90% focal stenosis at the origin of the P2 segment of the right POLICY SERVICE COORDINATOR. Additional 80% focal stenosis along the P2 segments of the bilateral cable braider. 40% stenosis at the origins of the bilateral internal carotid arteries. The results were sent to radiology results communication. Xr Chest Portable Result Date: 07/16/2019 Interval advancement of the enteric tube and the tip is not well seen. To be safe, retraction of the tube 1-1.5 cm may be useful to ensure it is separate from the carinal region. Slight worsening in multifocal airspace disease. The findings were sent to the Radiology Results Communication Center at6:46 am on 07/15/2019to be communicated to a licensed caregiver. Xr Chest Portable Result Date: 07/16/2019 X-ray not significantly changed Xr Chest Portable Result Date: 07/14/2019 *Endotracheal tube tip approximately 6 cm of the janes. *Interval increased interstitial prominence/vascular congestion with persistent left perihilar opacity and probable trace effusions. Xr Chest Portable Result Date: 07/13/2019 1. Interval improvement in pulmonary interstitial edema. Persistent left perihilar pulmonary opacity. Continued attention on follow-up examination is recommended. 2. Support hardware, as detailed above. Xr Chest Portable Result Date: 07/12/2019 Patchy airspace opacities bilaterally, may be related to pulmonary edema versus pneumonia, grossly stable. Stable mild cardiomegaly. Xr Chest Portable Result Date: 07/11/2019 Improved ET tube position now projecting 3.0 cm from the janes. Pulmonary edema. Small left effusion. Xr Chest Portable Result Date: 07/11/2019 Endotracheal tube placement with the tip suspected to be approximately 2 cm above the level of the janes. Increased left pleural effusion. Underlying pneumonia is not excluded. Xr Chest Portable Result Date: 07/11/2019 Endotracheal tube tip is still in the right mainstem bronchus and should be retracted approximately4-5 cm. Otherwise stable appearance of the chest. Xr Chest Portable Result Date: 07/10/2019 Persistent pulmonary edema. Mra Neck Wo Contrast Result Date: 07/12/2019 Known acute to subacute infarction in the right temporal lobe and lateral aspect of the right occipital lobe, stable in size since July 10, 2019. Associated local mass effect without midline shift. A few scattered tiny foci acute to subacute infarctions in the bilateral cerebral hemispheres andright cerebellar hemisphere, possibly embolic. Small old lacunar infarcts in the bilateral basal ganglia/periventricular white matter. 80% focal stenosis at the left ICA terminus. Asymmetrically small caliber of the M1 segment of left MCA. Occlusion of A1 segment of left MONSTER. 90% focal stenosis at the origin of the P2 segment of the right POLICY SERVICE COORDINATOR. Additional 80% focal stenosis along the P2 segments of the bilateral cable braider. 40% stenosis at the origins of the bilateral internal carotid arteries. The results were sent to radiology results communication. Mri Brain Wo Contrast Result Date: 07/12/2019 Known acute to subacute infarction in the right temporal lobe and lateral aspect of the right occipital lobe, stable in size since July 10, 2019. Associated local mass effect without midline shift. A few scattered tiny foci acute to subacute infarctions in the bilateral cerebral hemispheres andright cerebellar hemisphere, possibly embolic. Small old lacunar infarcts in the bilateral basal ganglia/periventricular white matter. 80% focal stenosis at the left ICA terminus. Asymmetrically small caliber of the M1 segment of left MCA. Occlusion of A1 segment of left MONSTER. 90% focal stenosis at the origin of the P2 segment of the right POLICY SERVICE COORDINATOR. Additional 80% focal stenosis along the P2 segments of the bilateral cable braider. 40% stenosis at the origins of the bilateral internal carotid arteries. The results were sent to radiology results communication. ASSESSMENT: 2. Acute hypoxemic respiratory failure requiring mechanical ventilation.- extubated 07/19 3. Status post AVR and CABG 07/03/2019. 4. Status post tamponade from distal anastomosis SVG-PLV site bleeding status post repair 07/03/2019. 5. Sternal closure 07/04/2019. 6. Acute right temporal /ischemic CVA Gram stain shows gram-negative rods gram-negative pneumonia pneumonia. 7. Possible seizure. 8. Acute encephalopathy secondary to above. 9. VIVIAN on CKD. 10. Postop atrial fibrillation.now rate cont 11. Hypertension. 12. Hyperlipidemia. 13. Diabetes mellitus. Type II with hyperglycemia Dysphagia Plan and recommendation: Monitor of Abx per ID-Leukocytosis likely reactive Continue diuresis per nephrology- Plan For swallow evaluation Continue PT/OT Plan for rehab transfer- [facility], pre-CERT started Please note that this chart was generated using voice recognition [employer] dictation software. Although every effort was made to ensure the accuracy of this automated activity director, some errors in activity director may have occurred. Luda Thapa M.D. Pulmonary and critical care attending [facility] [place]) 07/22/2019, 11:05 AM Associated attestation - Jaimee Arellano DO - 07/22/2019 3:30 PM EST Attending Physician Statement I have discussed the care of Eleanor Mcclain, including pertinent history and exam findings, withthe pulmonary critical care fellow/resident/COMMUNITY LIVING SPECIALIST. I have seen and examined the patient and the mendoza elements of all parts of the encounter have been performed by me. I agree with the assessment, plan and orders as documented by the fellow/resident/COMMUNITY LIVING SPECIALIST. Covered from last night's episode. Currently on oxygen 5 L nasal cannula and adequate saturations. Actually feeding self although still very weak. Decreased breath sounds in the bases but otherwise generally clear. Chest x-ray a minimally worse however limited inspiration on current film limits comparison. Discussed with patient and family. Discharge planning for halfway facility. Patientpassed swallow study. Hopefully transfer next 24 to 48 hours. * Cole Arteaga DO - 07/22/2019 7:25 AM EST Tyra Vice President Sales And Marketing Progress Note Date: 07/22/2019 Patient name: Eleanor Mcclain Date of admission: 07/03/2019 5:13 AM Date of : 1950 PCP: Grayson Hernandez MD Reason for Admission: CAD, multiple vessel [I25.10] Subjective: Patient seen and examined. Patient pulled out her nasal cannula and telemetry attachments yesterday evening and remained hypoxic for about 4 hours. She was found obtunded and confused and was put on BiPAP last night. She was unable to take any of her p.o. meds last night and was given IV hydralazine for her BP. This a.m., BP continues to run high in systolic 170s. I/O last 3 completed shifts: In: 232 [I.V.:232] Out: 2225 [Urine:2225] No intake/output data recorded. In: 232 [I.V.:232] Out: 750 [Urine:750] Intake/Output Summary (Last 24 hours) at 07/22/2019 0725 Last data filed at 07/22/2019 0659 Gross per 24 hour Intake 232 ml Output 1650 ml Net -1418 ml Medications: Scheduled Meds: bumetanide 2 mg Intravenous Once bumetanide 1 mg Intravenous BID amLODIPine 10 mg Oral Daily hydrALAZINE 25 mg Oral 3 times per day amiodarone 200 mg Oral Daily cloNIDine 1 patch Transdermal Weekly FLUoxetine 10 mg Oral Daily insulin glargine 20 Units Subcutaneous Nightly sodium chloride flush 10 mL Intravenous BID vitamin B-1 100 mg Oral Daily spironolactone 50 mg Oral BID carvedilol 12.5 mg Oral BID WC lidocaine 1 % injection 5 mL Intradermal Once sodium chloride flush 10 mL Intravenous 2 times per day insulin lispro 0-18 Units Subcutaneous TID WC insulin lispro 0-9 Units Subcutaneous Nightly potassium chloride 40 mEq Intravenous Once famotidine 20 mg Oral Daily sodium chloride flush 10 mL Intravenous 2 times per day sodium chloride flush 10 mL Intravenous 2 times per day docusate sodium 100 mg Oral BID polyethylene glycol 17 g Oral Daily chlorhexidine 15 mL Mouth/Throat BID therapeutic multivitamin-minerals 1 tablet Oral Daily with breakfast atorvastatin 40 mg Oral Nightly clopidogrel 75 mg Oral Daily insulin lispro 0-6 Units Subcutaneous Nightly Continuous Infusions: heparin 25,000 units in 0.9% sodium chloride 250 mL infusion 16 Units/kg/hr (07/21/19 1219) dextrose CBC: Recent Labs 1950 07/21/1933807/22/19408 WBC 23.1* 15.1* 17.3* HGB 8.6* 8.5* 9.1* PLT 370 287 291 BMP: Recent Labs 1950 07/21/1933807/21/19204907/22/19408 NA 142 143 -- 144 K 4.5 4.4 -- 3.7 CL 101 103 -- 106 CO2 25 26 -- 24 BUN 51* 57* -- 45* CREATININE 1.70* 1.74* 1.78* 1.49* GLUCOSE 174* 184* -- 105* Hepatic: No results for input(s): AST, ALT, ALB, BILITOT, ALKPHOS in the last 72 hours. Troponin: No results for input(s): TROPONINI in the last 72 hours. No results for input(s): TROPONINT in the last 72 hours. BNP: No results for input(s): PROBNP in the last 72 hours. No results for input(s): BNP in the last 72 hours. Lipids: No results for input(s): CHOL, HDL in the last 72 hours. Invalid input(s): LDLCALCU INR: Recent Labs 1950 07/21/1933807/22/19408 INR 1.1 1.2 1.2 Objective: Vitals: BP (!) 173/67 Pulse 62 Temp 97.4 F (36.3 C) (Axillary) Resp 15 Ht 5' 2 (1.575 m) Wt 175 lb 11.3 oz (79.7 kg) SpO2 100% BMI 32.14 kg/m General appearance: extubated HEENT: Head: Normocephalic, atraumatic without any obvious abnormalities. Lungs: Coarse breath sound b/l Heart: raza, no murmurs, mechanical click Abdomen: soft, nontender with bowel sounds present in all 4 quadrants. Extremities: Lower extremity edema is present + bilaterally. Peripheral pulses in b/l LE present Integumentum:Intact with no rashes noted. Diagnostic Studies: EKG: Normal sinus rhythm ECHO: 06/27/2019 Left ventricle is normal in size, increased septal wall thickness, global left ventricular systolic function is low normal, calculated ejection fraction is 51%. Evidence of moderate (grade II) diastolic dysfunction. Peak instantaneous gradient 58 mmHg and mean gradient 34 mmHg, suggesting moderate to severe aortic stenosis. Mild to moderate mitral stenosis ( calculated valve area of 3.73cm2 with a mean gradient of 6mmHg.) Mild mitral regurgitation. Cath 05/2019 - LAD: p LAD 70% stenosis - LCX - co-dominant, OM1: 70% stenosis - RCA- 50% PDA 07/07/2019: 2D echo Global left ventricular systolic function is difficult to assess due to heart rate and rhythm but appears mildly reduced. Estimated ejection fraction is 45 % . Right ventricular function appears normal . A 21mm Intuity valve is seen in the aortic position. Mean gradient 13 mmHg is noted. No significant valvular regurgitation. No significant pericardial effusion is seen. MRI brain/neck: 07/13 Known acute to subacute infarction in the right temporal lobe and lateral aspect of the right occipital lobe, stable in size since July 10, 2019. Associated local mass effect without midline shift. A few scattered tiny foci acute to subacute infarctions in the bilateral cerebral hemispheres and right cerebellar hemisphere, possibly embolic. Small old lacunar infarcts in the bilateral basal ganglia/periventricular white matter. 80% focal stenosis at the left ICA terminus. Asymmetrically small caliber of the M1 segment of left MCA. Occlusion of A1 segment of left MONSTER. 90% focal stenosis at the origin of the P2 segment of the right POLICY SERVICE COORDINATOR. Additional 80% focal stenosis along the P2 segments of the bilateral cable braider. 40% stenosis at the origins of the bilateral internal carotid arteries. MRI 07/16 Slight decrease in conspicuity of multifocal recent infarcts. There is multifocal enhancement associated with the right posterior temporal occipital infarct compatible with subacute infarct. There is also a small amount of developing high T1 signal and decreased gradient echo signal suggesting petechial hemorrhagic staining. Multiple old infarcts Multifocal small-vessel ischemic change MRI cervical spine: Multilevel degenerative disc disease, greatest between C4 and C6-7. See above for details of each level. High signal in the rightward aspect of the cord at C3-4. This is age indeterminate and may be due to developing myelomalacia from cord compression below this level. Another consideration would be recent cord ischemic change. Other etiologies, to include neoplasm and transverse myelitis, for high signal in the cord are considered less likely at this time. Follow-up is recommended. Assessment / Acute Cardiac Problems: 1. Severe and MVD - sp AVR 21MM INTUITY VALVE 07/03/2019 and CABG - CAMPBELL-LAD, SVG- OM2, SVG- PVL(post AVR mean gradient 13 mmHg) 2. Post-op bleeding with tamponade related to distal anastomosis site bleeding from SVG-PLV s/p repair 07/03/2019 and now s/p closure of chest wall 07/04/2019 3. Paroxysmal A. fib - episode 07/06 and 07/07 and 07/14 - now in sinus and on amiodarone 4. Resp failure - re-intubated 07/11/2019 - extubated 07/19/2019 5. Intra OP LOVE LV function of 45%, was 51% on pre op TTE 6. Possible seizure episode 07/07 7. Hypertensive urgency 8. DM-2 9. Post OP blood loss anemia (Hgb 7.0) -s/p one unit PRBC 07/16/2019 10. VIVIAN - nephrology following, stable 11. Paroxysmal afib 12. Thrombocytopenia - resolved Plan of Treatment: 1. On Plavix, Lipitor, and heparin drip. Amiodarone reduced to 200 mg daily due to bradycardia in 50s. 2. On amlodipine 10 mg, hydralazine 25 tid, Coreg 12.5 bid, Aldactone 50 bid - unable to take p.o. at this time 3. Bumex increased to 2 mg IV this am due to worsening pulmonary edema and lower extremity edema. 4. Wean clonidine patch when patient is able to take p.o. medications 5. On heparin drip for A. Fib - will transition to p.o. when able to swallow 6. Speech consulted for swallow evaluation 7. Neurology and neurosurgery on board for stroke with possible petechial hemorrhage - recommended outpatient follow-up 8. Nephrology following for VIVIAN 9. Potassium sliding scale IV ordered 10. Post OP management per CT surgery Thank you for allowing us to participate in Eleanor Mcclain's care. Will follow with you. Electronically signed on 07/22/19 at 7:25 AM by: Kanwal Michel MD Attending Nuclear Medicine Medical Director Addendum: I have reviewed and performed the history, physical, subjective, objective, assessment, and plan with the resident/fellow and agree with the note. I performed the history and physical personally. I have made changes to the note above as needed. Currently npo On bipap Agree with diuresis IV hydral prn until able to take po again Thank you for allowing me to participate in the care of this patient, please do not hesitate to call if you have any questions. Cole Arteaga DO, FAC, [facility] Vice President Sales And Marketing [email or web address] * Gee Hernandez RN - 07/21/2019 10:59 AM EST Patient purposely removed flexiflo at this time. Patient reports that she does not want the flexiflo or continued tube feedings. Patient refused NG or flexiflo replacement at this time. Education to aspiration risk and NPO status in relation to choking concern reviewed with the patient. Patient verbalized understanding of this during this encounter. * Luda Thapa MD - 07/21/2019 10:58 AM EST Pulmonary critical care progress note. Date and time: 07/21/2019 10:58 AM Patient's name: Eleanor Mcclain Patient's account/billing number: [id number] Patient's Date of : 1950 Age: 68 y.o. Date of Admission: 07/03/2019 5:13 AM Length of stay during current admission: 18 Primary Care Physician: Grayson Hernandez MD Code Status: Full Code Reason for initial consultation: Acute hypoxic respiratory failure ARDS/acute pulmonary edema SUBJECTIVE: OVERNIGHT EVENTS: 07/21/2019 No acute issues overnight Afebrile, blood pressure on higher side, heart rate on lower side Patient oriented to herself Yesterday Flexiflo was placed and started on tube feeds OBJECTIVE: VITAL SIGNS: BP (!) 133/50 Pulse 59 Temp 98.2 F (36.8 C) (Oral) Resp 19 Ht 5' 2 (1.575 m) Wt 182 lb 12.2 oz (82.9 kg) SpO2 97% BMI 33.43 kg/m Tmax over 24 hours: Temp (24hrs), Av F (36.7 C), Min:97.1 F (36.2 C), Max:98.6 F (37 C) Patient Vitals for the past 6 hrs: BP Temp Temp src Pulse Resp SpO2 07/21/19 1049 (!) 133/50 98.2 F (36.8 C) Oral 59 19 97 % 07/21/19 0757 (!) 170/65 98 F (36.7 C) Oral 64 16 97 % Intake/Output Summary (Last 24 hours) at 07/21/2019 1058 Last data filed at 07/21/2019 0721 Gross per 24 hour Intake 613 ml Output 835 ml Net -222 ml Wt Readings from Last 2 Encounters: 07/20/19 182 lb 12.2 oz (82.9 kg) 06/25/19 147 lb (66.7 kg) Body mass index is 33.43 kg/m . PHYSICAL EXAMINATION: Head and neck atraumatic, normocephalic Lymph nodes-no cervical, supraclavicular lymphadenopathy Neck-no JVP elevation Lungs -b/l equal air entry CVS- S1, S2 regular. No S3 no S4, no murmurs Sternotomy Abdomen-nontender, nondistended. Bowel sounds are present. No organomegaly Lower extremity-no edema Upper extremity-no edema Neurological-alert, oriented to herself, moves all extremities Any additional physical findings: MEDICATIONS: Scheduled Meds: amLODIPine 10 mg Oral Daily cloNIDine 1 patch Transdermal Weekly FLUoxetine 10 mg Oral Daily bumetanide 1 mg Intravenous BID insulin glargine 20 Units Subcutaneous Nightly sodium chloride 20 mL Intravenous Once sodium chloride flush 10 mL Intravenous BID vitamin B-1 100 mg Oral Daily spironolactone 50 mg Oral BID carvedilol 12.5 mg Oral BID WC lidocaine 1 % injection 5 mL Intradermal Once sodium chloride flush 10 mL Intravenous 2 times per day insulin lispro 0-18 Units Subcutaneous TID WC insulin lispro 0-9 Units Subcutaneous Nightly amiodarone 200 mg Oral BID potassium chloride 40 mEq Intravenous Once famotidine 20 mg Oral Daily sodium chloride flush 10 mL Intravenous 2 times per day sodium chloride flush 10 mL Intravenous 2 times per day docusate sodium 100 mg Oral BID polyethylene glycol 17 g Oral Daily chlorhexidine 15 mL Mouth/Throat BID therapeutic multivitamin-minerals 1 tablet Oral Daily with breakfast atorvastatin 40 mg Oral Nightly clopidogrel 75 mg Oral Daily insulin lispro 0-6 Units Subcutaneous Nightly Continuous Infusions: heparin 25,000 units in 0.9% sodium chloride 250 mL infusion 18 Units/kg/hr (07/21/19 07) dextrose PRN Meds: QUEtiapine, 25 mg, Nightly PRN hydrALAZINE, 10 mg, Q6H PRN bumetanide, 2 mg, PRN labetalol, 10 mg, Q4H PRN sodium chloride flush, 10 mL, PRN sodium chloride flush, 10 mL, PRN sodium chloride flush, 10 mL, PRN calcium chloride IVPB, 1 g, PRN magnesium sulfate, 1 g, PRN potassium chloride, 20 mEq, PRN acetaminophen, 650 mg, Q4H PRN acetaminophen, 650 mg, Q4H PRN oxyCODONE-acetaminophen, 1 tablet, Q4H PRN Or oxyCODONE-acetaminophen, 2 tablet, Q4H PRN bisacodyl, 10 mg, Daily PRN ondansetron, 4 mg, Q8H PRN albumin human, 25 g, PRN glucose, 15 g, PRN dextrose, 12.5 g, PRN glucagon (rDNA), 1 mg, PRN dextrose, 100 mL/hr, PRN VENT SETTINGS (Comprehensive) (if applicable): Vent Information $Ventilation: $Subsequent Day Ventilator Started: Yes Ventilator Stopped: Yes Ventilation Day(s): 7 Skin Assessment: Clean, dry, & intact Equipment ID: [id number] Equipment Changed: Suction catheter Vent Type: Servo i Vent Mode: CPAP Vt Ordered: 400 mL Pressure Ordered: 8 Rate Set: (S) 16 bmp Pressure Support: 6 cmH20 FiO2 : 30 % Sensitivity: 3 PEEP/CPAP: 5 I Time/ I Time %: 0.9 s Humidification Source: HME Nitric Oxide/Epoprostenol In Use?: No Additional Respiratory Assessments Pulse: 59 Resp: 19 SpO2: 97 % End Tidal CO2: 33 (%) Position: Semi-Newton's Humidification Source: HME Oral Care Completed?: Yes Oral Care: Mouthwash, Lip moisturizer applied, Mouth swabbed Subglottic Suction Done?: Yes ABG Lab Results Component Value Date [id number] 07/19/2019 FIO2 40.0 07/19/2019 Laboratory findings: Complete Blood Count: Recent Labs 07/19/1941207/20/1950 07/21/19 0339 WBC 19.4* 23.1* 15.1* HGB 8.3* 8.6* 8.5* HCT 26.6* 27.8* 28.5* PLT 244 370 287 Last 3 Blood Glucose: Recent Labs 07/19/1941207/20/19 0648 07/21/19 0339 GLUCOSE 252* 174* 184* PT/INR: Lab Results Component Value Date PROTIME 12.3 07/21/2019 INR 1.2 07/21/2019 PTT: Lab Results Component Value Date APTT 84.1 07/21/2019 Comprehensive Metabolic Profile: Recent Labs 07/19/1941207/20/19 0648 07/21/19 0339 NA 137 142 143 K 5.0 4.5 4.4 CL 99 101 103 CO2 25 25 26 BUN 44* 51* 57* CREATININE 1.67* 1.70* 1.74* GLUCOSE 252* 174* 184* CALCIUM 8.7 8.7 9.0 Magnesium: Lab Results Component Value Date MG 3.1 07/21/2019 Phosphorus: Lab Results Component Value Date PHOS 5.4 07/20/2019 Ionized Calcium: Lab Results Component Value Date CAION 1.07 07/11/2019 Urinalysis: Troponin: No results for input(s): TROPONINI in the last 72 hours. Microbiology: Cultures during this admission: Blood cultures: [] None drawn [] Negative [] Positive (Details: ) Urine Culture: [] None drawn [] Negative [] Positive (Details: ) Sputum Culture: [] None drawn [] Negative [] Positive (Details: ) Endotracheal aspirate: [] None drawn [] Negative [] Positive (Details: ) Other pertinent Labs: Radiology/Imaging: Ct Head Wo Contrast Result Date: 07/10/2019 1. Stable appearance of right temporal lobe subacute infarct, as discussed above. 2. Redemonstration of multifocal bilateral basal ganglia remote lacunar infarcts. Mra Head Wo Contrast Result Date: 07/12/2019 Known acute to subacute infarction in the right temporal lobe and lateral aspect of the right occipital lobe, stable in size since July 10, 2019. Associated local mass effect without midline shift. A few scattered tiny foci acute to subacute infarctions in the bilateral cerebral hemispheres andright cerebellar hemisphere, possibly embolic. Small old lacunar infarcts in the bilateral basal ganglia/periventricular white matter. 80% focal stenosis at the left ICA terminus. Asymmetrically small caliber of the M1 segment of left MCA. Occlusion of A1 segment of left MONSTER. 90% focal stenosis at the origin of the P2 segment of the right POLICY SERVICE COORDINATOR. Additional 80% focal stenosis along the P2 segments of the bilateral cable braider. 40% stenosis at the origins of the bilateral internal carotid arteries. The results were sent to radiology results communication. Xr Chest Portable Result Date: 07/16/2019 Interval advancement of the enteric tube and the tip is not well seen. To be safe, retraction of the tube 1-1.5 cm may be useful to ensure it is separate from the carinal region. Slight worsening in multifocal airspace disease. The findings were sent to the Radiology Results Communication Center at6:46 am on 07/15/2019to be communicated to a licensed caregiver. Xr Chest Portable Result Date: 07/16/2019 X-ray not significantly changed Xr Chest Portable Result Date: 07/14/2019 *Endotracheal tube tip approximately 6 cm of the janes. *Interval increased interstitial prominence/vascular congestion with persistent left perihilar opacity and probable trace effusions. Xr Chest Portable Result Date: 07/13/2019 1. Interval improvement in pulmonary interstitial edema. Persistent left perihilar pulmonary opacity. Continued attention on follow-up examination is recommended. 2. Support hardware, as detailed above. Xr Chest Portable Result Date: 07/12/2019 Patchy airspace opacities bilaterally, may be related to pulmonary edema versus pneumonia, grossly stable. Stable mild cardiomegaly. Xr Chest Portable Result Date: 07/11/2019 Improved ET tube position now projecting 3.0 cm from the janes. Pulmonary edema. Small left effusion. Xr Chest Portable Result Date: 07/11/2019 Endotracheal tube placement with the tip suspected to be approximately 2 cm above the level of the janes. Increased left pleural effusion. Underlying pneumonia is not excluded. Xr Chest Portable Result Date: 07/11/2019 Endotracheal tube tip is still in the right mainstem bronchus and should be retracted approximately4-5 cm. Otherwise stable appearance of the chest. Xr Chest Portable Result Date: 07/10/2019 Persistent pulmonary edema. Mra Neck Wo Contrast Result Date: 07/12/2019 Known acute to subacute infarction in the right temporal lobe and lateral aspect of the right occipital lobe, stable in size since July 10, 2019. Associated local mass effect without midline shift. A few scattered tiny foci acute to subacute infarctions in the bilateral cerebral hemispheres andright cerebellar hemisphere, possibly embolic. Small old lacunar infarcts in the bilateral basal ganglia/periventricular white matter. 80% focal stenosis at the left ICA terminus. Asymmetrically small caliber of the M1 segment of left MCA. Occlusion of A1 segment of left MONSTER. 90% focal stenosis at the origin of the P2 segment of the right POLICY SERVICE COORDINATOR. Additional 80% focal stenosis along the P2 segments of the bilateral cable braider. 40% stenosis at the origins of the bilateral internal carotid arteries. The results were sent to radiology results communication. Mri Brain Wo Contrast Result Date: 07/12/2019 Known acute to subacute infarction in the right temporal lobe and lateral aspect of the right occipital lobe, stable in size since July 10, 2019. Associated local mass effect without midline shift. A few scattered tiny foci acute to subacute infarctions in the bilateral cerebral hemispheres andright cerebellar hemisphere, possibly embolic. Small old lacunar infarcts in the bilateral basal ganglia/periventricular white matter. 80% focal stenosis at the left ICA terminus. Asymmetrically small caliber of the M1 segment of left MCA. Occlusion of A1 segment of left MONSTER. 90% focal stenosis at the origin of the P2 segment of the right POLICY SERVICE COORDINATOR. Additional 80% focal stenosis along the P2 segments of the bilateral cable braider. 40% stenosis at the origins of the bilateral internal carotid arteries. The results were sent to radiology results communication. ASSESSMENT: 2. Acute hypoxemic respiratory failure requiring mechanical ventilation.- extubated 07/19 3. Status post AVR and CABG 07/03/2019. 4. Status post tamponade from distal anastomosis SVG-PLV site bleeding status post repair 07/03/2019. 5. Sternal closure 07/04/2019. 6. Acute right temporal /ischemic CVA Gram stain shows gram-negative rods gram-negative pneumonia pneumonia. 7. Possible seizure. 8. Acute encephalopathy secondary to above. 9. VIVIAN on CKD. 10. Postop atrial fibrillation.now rate cont 11. Hypertension. 12. Hyperlipidemia. 13. Diabetes mellitus. Type II with hyperglycemia Dysphagia Plan and recommendation: Monitor of Abx per ID Continue diuresis per nephrology-1 mg Bumex twice daily On tube feeds Continue PT/OT Plan for rehab transfer, pre-CERT started Please note that this chart was generated using voice recognition IPGon dictation software. Although every effort was made to ensure the accuracy of this automated activity director, some errors in activity director may have occurred. Luda Thapa M.D. Pulmonary and critical care attending [facility]) 07/21/2019, 10:58 AM Associated attestation - Jaimee Arellano DO - 07/21/2019 10:10 PM EST Attending Physician Statement I have discussed the care of Eleanor Mcclain, including pertinent history and exam findings, withthe pulmonary critical care fellow/resident/COMMUNITY LIVING SPECIALIST. I have seen and examined the patient and the mendoza elements of all parts of the encounter have been performed by me. I agree with the assessment, plan and orders as documented by the fellow/resident/COMMUNITY LIVING SPECIALIST. Earlier on rounds. Up in chair, slowly interactive with son. Able to answer simple questions. No respiratory distress. 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 Urine output adequate. And to discontinue Fajardo catheter. Awaiting swallow evaluation. Currently tolerating thick liquids. Discussed with son. Will require inpatient rehab. Later this evening, called by nurse regarding hypoxemia and possible aspiration. Placed on BiPAP. Oxygen saturations in 90s. Chest x-ray pending. * Enio Zarate MD - 07/21/2019 8:08 AM EST Nephrology Progress Note SUBJECTIVE Patient was seen and examined. Following patient for VIVIAN from ischemic ATN. Patient came in for CABG and AVR which was complicated with postoperative cardiac tamponade and hypotension, had graft displacement as well. Required redo procedure and chest wash out post surgery. Right posterior temporal/occipital subacute infarct. + PAF Creatinine stable at 1.74 today, baseline creatinine is 1.2-1.4. Electrolytes show sodium 143, potassium 4.4, chloride 103 and CO2 26 with magnesium 3.1 glucose 184. White blood cell 15.1, hemoglobin 8.5, platelets are 287. Last ABG shows reasonable acid base balance. She is on Bumex 1 mg IV bid currently. She is awake alert and relatively comfortable. OBJECTIVE CURRENT TEMPERATURE: Temp: 98 F (36.7 C) MAXIMUM TEMPERATURE OVER 24HRS: Temp (24hrs), Av F (36.7 C), Min:97.1 F (36.2 C), Max:98.6 F (37 C) CURRENT RESPIRATORY RATE: Resp: 16 CURRENT PULSE: Pulse: 64 CURRENT BLOOD PRESSURE: BP: (!) 170/65 24HR BLOOD PRESSURE RANGE: Systolic (24hrs), Av , Min:131 , Max:183 ; Diastolic (24hrs), Av, Min:41, Max:73 24HR INTAKE/OUTPUT: Intake/Output Summary (Last 24 hours) at 07/21/2019 0808 Last data filed at 07/21/2019 0721 Gross per 24 hour Intake 613 ml Output 1285 ml Net -672 ml WEIGHT : Patient Vitals for the past 96 hrs (Last 3 readings): Weight 07/20/19 0542 182 lb 12.2 oz (82.9 kg) 07/19/19 0600 158 lb 4.6 oz (71.8 kg) 07/18/19 0000 169 lb 15.6 oz (77.1 kg) PHYSICAL EXAM General: awake and alert and relatively comfortable Neck: no JVD Chest: clear to auscultation bilaterally new wheezes or rales or rhonchi and has diminished breath sounds at the bases Cardiac: Regular rate and rhythm with positive S1 and S2 Abdomen: Obese and soft and mildly distended, sluggish bowel sounds Extremities: mild, positive lower extremity edema CURRENT MEDICATIONS amLODIPine (NORVASC) tablet 10 mg, Daily cloNIDine (CATAPRES) 0.2 MG/24HR 1 patch, Weekly QUEtiapine (SEROQUEL) tablet 25 mg, Nightly PRN FLUoxetine (PROZAC) 20 MG/5ML solution 10 mg, Daily hydrALAZINE (APRESOLINE) injection 10 mg, Q6H PRN bumetanide (BUMEX) injection 1 mg, BID insulin glargine (LANTUS) injection vial 20 Units, Nightly 0.9 % sodium chloride bolus, Once bumetanide (BUMEX) injection 2 mg, PRN sodium chloride flush 0.9 % injection 10 mL, BID heparin (porcine) 25,000 Units in sodium chloride 0.9 % 250 mL infusion, Continuous labetalol (NORMODYNE;TRANDATE) injection 10 mg, Q4H PRN vitamin B-1 (THIAMINE) tablet 100 mg, Daily spironolactone (ALDACTONE) tablet 50 mg, BID carvedilol (COREG) tablet 12.5 mg, BID WC lidocaine 1 % injection 5 mL, Once sodium chloride flush 0.9 % injection 10 mL, 2 times per day sodium chloride flush 0.9 % injection 10 mL, PRN insulin lispro (HUMALOG) injection vial 0-18 Units, TID WC insulin lispro (HUMALOG) injection vial 0-9 Units, Nightly amiodarone (CORDARONE) tablet 200 mg, BID potassium chloride 10 mEq/100 mL IVPB (Peripheral Line), Once famotidine (PEPCID) tablet 20 mg, Daily sodium chloride flush 0.9 % injection 10 mL, 2 times per day sodium chloride flush 0.9 % injection 10 mL, PRN sodium chloride flush 0.9 % injection 10 mL, 2 times per day sodium chloride flush 0.9 % injection 10 mL, PRN calcium chloride 1 g in sodium chloride 0.9 % 100 mL IVPB, PRN magnesium sulfate 1 g in dextrose 5% 100 mL IVPB, PRN potassium chloride 20 mEq/50 mL IVPB (Central Line), PRN acetaminophen (TYLENOL) tablet 650 mg, Q4H PRN acetaminophen (TYLENOL) suppository 650 mg, Q4H PRN oxyCODONE-acetaminophen (PERCOCET) 5-325 MG per tablet 1 tablet, Q4H PRN Or oxyCODONE-acetaminophen (PERCOCET) 5-325 MG per tablet 2 tablet, Q4H PRN docusate sodium (COLACE) capsule 100 mg, BID polyethylene glycol (GLYCOLAX) packet 17 g, Daily bisacodyl (DULCOLAX) suppository 10 mg, Daily PRN ondansetron (ZOFRAN) injection 4 mg, Q8H PRN chlorhexidine (PERIDEX) 0.12 % solution 15 mL, BID therapeutic multivitamin-minerals 1 tablet, Daily with breakfast atorvastatin (LIPITOR) tablet 40 mg, Nightly clopidogrel (PLAVIX) tablet 75 mg, Daily albumin human 5 % IV solution 25 g, PRN insulin lispro (HUMALOG) injection vial 0-6 Units, Nightly glucose (GLUTOSE) 40 % oral gel 15 g, PRN dextrose 50 % IV solution, PRN glucagon (rDNA) injection 1 mg, PRN dextrose 5 % solution, PRN LABS CBC: Recent Labs 07/19/1941207/20/19 0648 07/21/19 0339 WBC 19.4* 23.1* 15.1* RBC 2.89* 2.96* 2.97* HGB 8.3* 8.6* 8.5* HCT 26.6* 27.8* 28.5* MCV 92.0 93.9 96.0 MCH 28.7 29.1 28.6 MCHC 31.2 30.9 29.8 RDW 15.9* 16.2* 16.0* PLT 244 370 287 MPV 10.5 10.2 10.0 BMP: Recent Labs 07/19/19 04107/20/19 0648 07/21/19 0339 NA 137 142 143 K 5.0 4.5 4.4 CL 99 101 103 CO2 25 25 26 BUN 44* 51* 57* CREATININE 1.67* 1.70* 1.74* GLUCOSE 252* 174* 184* CALCIUM 8.7 8.7 9.0 PHOSPHORUS: Recent Labs 07/20/19 0648 PHOS 5.4* MAGNESIUM: Recent Labs 07/19/1941207/20/19 0648 07/21/19 0339 MG 2.5 2.8* 3.1* TETO: Lab Results Component Value Date TETO NEGATIVE 07/05/2019 SPEP: Lab Results Component Value Date PROT 5.7 07/09/2019 ALBCAL 3.6 07/05/2019 ALBPCT 76 07/05/2019 LABALPH 0.2 07/05/2019 LABALPH 0.4 07/05/2019 A1PCT 4 07/05/2019 A2PCT 8 07/05/2019 LABBETA 0.3 07/05/2019 BETAPCT 6 07/05/2019 GAMGLOB 0.3 07/05/2019 GGPCT 6 07/05/2019 PATH ELECTRONICALLY SIGNED. LOKI FRANCISCO M.D. 07/05/2019 UPEP: Lab Results Component Value Date TPU 37 07/05/2019 HEPBSAG: Lab Results Component Value Date HEPBSAG NONREACTIVE 07/05/2019 HEPCAB: Lab Results Component Value Date HEPCAB NONREACTIVE 07/05/2019 C3: Lab Results Component Value Date C3 48 (L) 07/05/2019 C4: Lab Results Component Value Date C4 11 07/05/2019 URINE SODIUM: Lab Results Component Value Date GELACIO <20 07/05/2019 URINE CREATININE: Lab Results Component Value Date LABCREA 121.8 07/05/2019 URINE PROTEIN: Lab Results Component Value Date TPU 37 07/05/2019 URINALYSIS: U/A: Lab Results Component Value Date NITRU NEGATIVE 07/05/2019 COLORU YELLOW 07/05/2019 PHUR 5.0 07/05/2019 WBCUA 2 TO 5 07/05/2019 RBCUA 2 TO 5 07/05/2019 MUCUS NOT REPORTED 07/05/2019 TRICHOMONAS NOT REPORTED 07/05/2019 YEAST NOT REPORTED 07/05/2019 BACTERIA NOT REPORTED 07/05/2019 SPECGRAV 1.035 07/05/2019 LEUKOCYTESUR NEGATIVE 07/05/2019 UROBILINOGEN Normal 07/05/2019 BILIRUBINUR NEGATIVE 07/05/2019 GLUCOSEU NEGATIVE 07/05/2019 KETUA MODERATE 07/05/2019 AMORPHOUS NOT REPORTED 07/05/2019 ASSESSMENT 1. Acute kidney injury due to ischemic acute tubular necrosis, post CABG. Now creatinine is little above her baseline. Creatinine 1.7 this morning, on IV Bumex. 2. Chronic kidney disease stage III likely secondary to hypertensive diabetic disease. . Baseline creatinine seems to be around 1.2 to 1.4 mg/DL. 3. Respiratory failure : 4. DM2 5. Essential hypertension 6. Anemia 7. CVA Neurology following PLAN 1. Continue Bumex IV 1 mg every 12. 2. Continue clonidine patch 3. Follow labs as ordered 4. Agree with carvedilol and hydralazine as ordered 5. Continue spironolactone as ordered Please do not hesitate to call with questions. * Cole Arteaga, - 07/21/2019 6:18 AM EST [employer] Vice President Sales And Marketing Progress Note Date: 07/21/2019 Patient name: Eleanor Mcclain Date of admission: 07/03/2019 5:13 AM Date of : 1950 PCP: Grayson Hernandez MD Reason for Admission: CAD, multiple vessel [I25.10] Subjective: Patient seen and examined. Patient awake, denies shortness of breath. Patient was hypertensive with SBP and 180s-190s this a.m. A dose of amlodipine 10 mg was given this morning through her NG tube. However, later in the day she pulled out her NG tube and has been requesting a diet. I/O last 3 completed shifts: In: 821.2 [I.V.:604.2; NG/GT:67; IV Piggyback:150] Out: 1255 [Urine:1255] No intake/output data recorded. In: 188 [I.V.:121; NG/GT:67] Out: 745 [Urine:745] Intake/Output Summary (Last 24 hours) at 07/21/2019 0618 Last data filed at 07/20/2019 1718 Gross per 24 hour Intake 188 ml Output 745 ml Net -557 ml Medications: Scheduled Meds: cloNIDine 1 patch Transdermal Weekly FLUoxetine 10 mg Oral Daily amLODIPine 5 mg Oral Daily bumetanide 1 mg Intravenous BID insulin glargine 20 Units Subcutaneous Nightly sodium chloride 20 mL Intravenous Once sodium chloride flush 10 mL Intravenous BID vitamin B-1 100 mg Oral Daily spironolactone 50 mg Oral BID carvedilol 12.5 mg Oral BID WC lidocaine 1 % injection 5 mL Intradermal Once sodium chloride flush 10 mL Intravenous 2 times per day insulin lispro 0-18 Units Subcutaneous TID WC insulin lispro 0-9 Units Subcutaneous Nightly amiodarone 200 mg Oral BID potassium chloride 40 mEq Intravenous Once famotidine 20 mg Oral Daily sodium chloride flush 10 mL Intravenous 2 times per day sodium chloride flush 10 mL Intravenous 2 times per day docusate sodium 100 mg Oral BID polyethylene glycol 17 g Oral Daily chlorhexidine 15 mL Mouth/Throat BID therapeutic multivitamin-minerals 1 tablet Oral Daily with breakfast atorvastatin 40 mg Oral Nightly clopidogrel 75 mg Oral Daily insulin lispro 0-6 Units Subcutaneous Nightly Continuous Infusions: heparin 25,000 units in 0.9% sodium chloride 250 mL infusion 18 Units/kg/hr (07/20/19 1544) dextrose CBC: Recent Labs 07/19/193 07/20/19 0648 07/21/19338 WBC 19.4* 23.1* 15.1* HGB 8.3* 8.6* 8.5* PLT 244 370 287 BMP: Recent Labs 07/19/193 07/20/19 0648 07/21/19338 NA 137 142 143 K 5.0 4.5 4.4 CL 99 101 103 CO2 25 25 26 BUN 44* 51* 57* CREATININE 1.67* 1.70* 1.74* GLUCOSE 252* 174* 184* Hepatic: No results for input(s): AST, ALT, ALB, BILITOT, ALKPHOS in the last 72 hours. Troponin: No results for input(s): TROPONINI in the last 72 hours. No results for input(s): TROPONINT in the last 72 hours. BNP: No results for input(s): PROBNP in the last 72 hours. No results for input(s): BNP in the last 72 hours. Lipids: No results for input(s): CHOL, HDL in the last 72 hours. Invalid input(s): LDLCALCU INR: Recent Labs 07/19/193 1950 07/21/19338 INR 1.1 1.1 1.2 Objective: Vitals: BP (!) 183/67 Pulse 61 Temp 98.6 F (37 C) (Oral) Resp 14 Ht 5' 2 (1.575 m) Wt 182 lb 12.2 oz (82.9 kg) SpO2 95% BMI 33.43 kg/m General appearance: extubated HEENT: Head: Normocephalic, atraumatic without any obvious abnormalities. Lungs: Coarse breath sound b/l Heart: raza, no murmurs, mechanical click Abdomen: soft, nontender with bowel sounds present in all 4 quadrants. Extremities: Lower extremity edema is present + bilaterally. Peripheral pulses in b/l LE present Integumentum:Intact with no rashes noted. Diagnostic Studies: EKG: Normal sinus rhythm ECHO: 06/27/2019 Left ventricle is normal in size, increased septal wall thickness, global left ventricular systolic function is low normal, calculated ejection fraction is 51%. Evidence of moderate (grade II) diastolic dysfunction. Peak instantaneous gradient 58 mmHg and mean gradient 34 mmHg, suggesting moderate to severe aortic stenosis. Mild to moderate mitral stenosis ( calculated valve area of 3.73cm2 with a mean gradient of 6mmHg.) Mild mitral regurgitation. Cath 05/2019 - LAD: p LAD 70% stenosis - LCX - co-dominant, OM1: 70% stenosis - RCA- 50% PDA 07/07/2019: 2D echo Global left ventricular systolic function is difficult to assess due to heart rate and rhythm but appears mildly reduced. Estimated ejection fraction is 45 % . Right ventricular function appears normal . A 21mm Intuity valve is seen in the aortic position. Mean gradient 13 mmHg is noted. No significant valvular regurgitation. No significant pericardial effusion is seen. MRI brain/neck: 07/13 Known acute to subacute infarction in the right temporal lobe and lateral aspect of the right occipital lobe, stable in size since July 10, 2019. Associated local mass effect without midline shift. A few scattered tiny foci acute to subacute infarctions in the bilateral cerebral hemispheres and right cerebellar hemisphere, possibly embolic. Small old lacunar infarcts in the bilateral basal ganglia/periventricular white matter. 80% focal stenosis at the left ICA terminus. Asymmetrically small caliber of the M1 segment of left MCA. Occlusion of A1 segment of left MONSTER. 90% focal stenosis at the origin of the P2 segment of the right POLICY SERVICE COORDINATOR. Additional 80% focal stenosis along the P2 segments of the bilateral cable braider. 40% stenosis at the origins of the bilateral internal carotid arteries. MRI 07/16 Slight decrease in conspicuity of multifocal recent infarcts. There is multifocal enhancement associated with the right posterior temporal occipital infarct compatible with subacute infarct. There is also a small amount of developing high T1 signal and decreased gradient echo signal suggesting petechial hemorrhagic staining. Multiple old infarcts Multifocal small-vessel ischemic change MRI cervical spine: Multilevel degenerative disc disease, greatest between C4 and C6-7. See above for details of each level. High signal in the rightward aspect of the cord at C3-4. This is age indeterminate and may be due to developing myelomalacia from cord compression below this level. Another consideration would be recent cord ischemic change. Other etiologies, to include neoplasm and transverse myelitis, for high signal in the cord are considered less likely at this time. Follow-up is recommended. Assessment / Acute Cardiac Problems: 1. Severe and MVD - sp AVR 21MM INTUITY VALVE 07/03/2019 and CABG - CAMPBELL-LAD, SVG- OM2, SVG- PVL(post AVR mean gradient 13 mmHg) 2. Post-op bleeding with tamponade related to distal anastomosis site bleeding from SVG-PLV s/p repair 07/03/2019 and now s/p closure of chest wall 07/04/2019 3. Paroxysmal A. fib - episode 07/06 and 07/07 and 07/14 - now in sinus and on amiodarone 4. Resp failure - re-intubated 07/11/2019 - extubated 07/19/2019 5. Intra OP LOVE LV function of 45%, was 51% on pre op TTE 6. Possible seizure episode 07/07 7. Hypertensive urgency 8. DM-2 9. Post OP blood loss anemia (Hgb 7.0) -s/p one unit PRBC 07/16/2019 10. VIVIAN - nephrology following, stable 11. Paroxysmal afib 12. Thrombocytopenia - resolved Plan of Treatment: 1. On Plavix, Lipitor, and heparin drip. Amiodarone reduced to 200 mg daily due to bradycardia in 50s. 2. On Coreg 12.5 bid, Bumex 1 mg IV bid, Aldactone 50 bid. 3. Added amlodipine 10 mg daily and hydralazine 25 mg tid. 4. Wean clonidine patch when patient is able to take p.o. medications 5. On heparin drip for A. Fib - will transition to p.o. anticoagulation tomorrow 6. Neurology and neurosurgery on board for stroke with possible petechial hemorrhage - recommended outpatient follow-up 7. Nephrology following for VIVIAN 8. Post OP management per CT surgery Thank you for allowing us to participate in Eleanor Mcclain's care. Will follow with you. Electronically signed on 07/21/19 at 6:18 AM by: Kanwal Michel MD Attending Nuclear Medicine Medical Director Addendum: I have reviewed and performed the history, physical, subjective, objective, assessment, and plan with the resident/fellow and agree with the note. I performed the history and physical personally. I have made changes to the note above as needed. BP higher- meds adjusted. Thank you for allowing me to participate in the care of this patient, please do not hesitate to call if you have any questions. Cole Arteaga DO, FACC, GRACIA [place] Vice President Sales And Marketing [email or web address] * Meseret ArechigaMARICRUZ - KATIE - 07/20/2019 1:37 PM EST Daily Progress Note Neuro Critical Care Patient Name: Eleanor Mcclain Patient : 1950 Room/Bed: 1006/1006-01 Code Status: FULL Allergies: Allergies Allergen Reactions Latex Anaphylaxis Eyes swell shut, rash CHIEF COMPLAINT: Encephalopathy INTERVAL HISTORY Initial Presentation (Admitted 07/03/19): The patient is a 68 y.o. female with a history of HTN, HLD, DM 2, CKD, CVA (2011 with no residual deficits), CAD, and aortic stenosis who was initially admitted on 06/23/19 after a scheduled CABGx3 andaortic valve replacement. Patient had been symptomatic with increased fatigue and increased shortness of breath for the past year. Patient acutely became hypotensive (SBP 40's per nursing) post operatively with significant increase in chest tube drainage. Taken back to OR where she was found to have tamponade due to suture tear. Chest left open and then closed the next day. She has been in and out of atrial fibrillation post operatively. On 07/[address] Head was obtained as patient was not following commands which showed evidence of subacute infarct in the right posterior temporal lobe. Neurology was consulted and evaluated patient on 07/07. That evening, she was noted to have brief episode of seizure like activity described as full body shaking by RN. Loaded with 1g Keppra and continued on 500mg BID per Neurology. Repeat CT Head 07/08 showed evolving moderate size right MCA territory infarction. EEG was obtained on 07/09 showing no seizure activity, moderate encephalopathy. Patient was started on low intensity heparin, no bolus by Neurology on 07/09 in the setting of paroxysmal afib. A repeat CT Head was obtained on 07/10 which did not show any evidence of hemorrhagic conversion. Patient was extubated on 07/09 with no improvement in neurological exam. She was re-intubated on 07/11 in the tumbler operator due to severe hypoxia and started on ARDS protocol which included administration of Nimbex. Neuro Critical Care asked to evaluate for further recommendations. Hospital Course: 07/11: Limited exam due to sedation/paralytic needed for ARDS protocol. MRI Brain ordered to evaluate for subcortical or brainstem infarction or any anoxic brain injury from near arrest post op. CT surgery amenable to removing pacing wires for MRI. 07/12: MRI Brain showed known acute to subacute infarct in the right temporal/occipital lobes, few scattered acute to subacute infarcts in the bilateral cerebral hemisphere and right cerebellar hemisphere. No significant acute infarction within left hemisphere. MRA Head/Neck revealed 80% focal stenos is left ICA, small caliber left MCA, occlusion left A1 MONSTER, 90% stenosis R POLICY SERVICE COORDINATOR. Results of imaging reviewed at length with family at bedside. Elevated TSH, normal free thyroxine 07/13: Thyroglobulin 10.7, Thyroglobulin antibody <20.0. LTME shwoed diffuse slowing, occasional central parietal rhythmic delta activity and right frontocentral sharp waves conferring increased risk for seizure. No evidence of subclinical seizure activity. 07/14: Largely unchanged examination. 07/15: Repeat Ammonia 41. Mild improvement in exam with more purposeful eye movements but still not tracking. ID changed Rocephin to Cefepime. 07/16: Awaiting MRI Brain W WO contrast, cervical spine. 07/17: MRI Brain W WO contrast re-demonstrated known infarctions. MRI Cervical spine showed multilevel degenerative disc disease most significant between C4 and C6-7, high signal C3-4 likely developing myelomalacia from cord compression; unlikely cord infarct in that location. Discussed results of MRI brain and cervical spine with family. No lesion on MRI to explain clinical exam and encephalopathy. Findings on cervical spine likely incidental. Will have Neurosurgery evaluate. Continue to see mild improvements in level of alertness and awareness. 07/18: Continued improvement in exam; following commands. No cuff leak; steroid course. Seroquel foragitation. 07/19: Extubated. Last 24h: No acute events overnight. Failed speech swallow evaluation, nursing to place NG tube. Patient doing well this afternoon on examination. She is alert and oriented to person. Able to state her son's name and where he lives. Following commands appropriately. Moving all extremities with generalized weakness. Flat affect, would recommend starting Prozac 10mg QD. CURRENT MEDICATIONS: SCHEDULED MEDICATIONS: cloNIDine 1 patch Transdermal Weekly amLODIPine 5 mg Oral Daily bumetanide 1 mg Intravenous BID QUEtiapine 25 mg Oral BID insulin glargine 20 Units Subcutaneous Nightly sodium chloride 20 mL Intravenous Once sodium chloride flush 10 mL Intravenous BID vitamin B-1 100 mg Oral Daily spironolactone 50 mg Oral BID carvedilol 12.5 mg Oral BID WC lidocaine 1 % injection 5 mL Intradermal Once sodium chloride flush 10 mL Intravenous 2 times per day insulin lispro 0-18 Units Subcutaneous TID WC insulin lispro 0-9 Units Subcutaneous Nightly amiodarone 200 mg Oral BID potassium chloride 40 mEq Intravenous Once famotidine 20 mg Oral Daily sodium chloride flush 10 mL Intravenous 2 times per day sodium chloride flush 10 mL Intravenous 2 times per day docusate sodium 100 mg Oral BID polyethylene glycol 17 g Oral Daily chlorhexidine 15 mL Mouth/Throat BID therapeutic multivitamin-minerals 1 tablet Oral Daily with breakfast atorvastatin 40 mg Oral Nightly clopidogrel 75 mg Oral Daily insulin lispro 0-6 Units Subcutaneous Nightly CONTINUOUS INFUSIONS: heparin 25,000 units in 0.9% sodium chloride 250 mL infusion Stopped (07/20/19 0943) dextrose PRN MEDICATIONS: hydrALAZINE, bumetanide, labetalol, sodium chloride flush, sodium chloride flush, sodium chloride flush, calcium chloride IVPB, magnesium sulfate, potassium chloride, acetaminophen, acetaminophen, oxyCODONE-acetaminophen OR oxyCODONE-acetaminophen, bisacodyl, ondansetron, albumin human, glucose, dextrose, glucagon (rDNA), dextrose VITALS: Temperature Range: Temp: 98.1 F (36.7 C) Temp Av.1 F (36.7 C) Min: 97.6 F (36.4 C) Max: 98.6 F(37 C) BP Range: Systolic (24hrs), Av , Min:132 , Max:189 Diastolic (24hrs), Av, Min:45, Max:100 Pulse Range: Pulse Av.3 Min: 58 Max: 69 Respiration Range: Resp Av.2 Min: 10 Max: 19 Current Pulse Ox: SpO2: 95 % 24HR Pulse Ox Range: SpO2 Av % Min: 86 % Max: 99 % Patient Vitals for the past 12 hrs: BP Temp Temp src Pulse Resp SpO2 Weight 07/20/19 1300 (!) 174/72 66 18 95 % 07/20/19 1235 136/64 58 15 95 % 07/20/19 1200 (!) 163/55 65 12 95 % 07/20/19 1127 63 07/20/19 1100 (!) 132/45 98.1 F (36.7 C) Oral 63 11 93 % 07/20/19 1000 (!) 143/53 66 10 96 % 07/20/19 0935 (!) 156/57 66 15 92 % 07/20/19 0900 (!) 175/60 66 16 (!) 86 % 07/20/19 0815 (!) 158/62 60 17 94 % 07/20/19 0800 (!) 161/63 98.6 F (37 C) Oral 59 14 95 % 07/20/19 0700 (!) 168/68 98.6 F (37 C) Oral 69 11 93 % 07/20/19 0600 (!) 162/72 69 11 07/20/19 0542 182 lb 12.2 oz (82.9 kg) 07/20/19 0500 (!) 162/62 68 11 07/20/19 0400 (!) 144/85 97.7 F (36.5 C) Oral 66 11 94 % 07/20/19 0300 (!) 136/100 97.6 F (36.4 C) Axillary 68 13 07/20/19 0200 (!) 149/52 63 11 Estimated body mass index is 33.43 kg/m as calculated from the following: Height as of this encounter: 5' 2 (1.575 m). Weight as of this encounter: 182 lb 12.2 oz (82.9 kg). []<16 Severe malnutrition []16 16.99 Moderate malnutrition []17 18.49 Mild malnutrition []18.5 24.9 Normal []25 29.9 Overweight (not obese) [x]30 34.9 Obese class 1 (Low Risk) []35 39.9 Obese class 2 (Moderate Risk) []?40 Obese class 3 (High Risk) RECENT LABS: Lab Results Component Value Date WBC 23.1 (H) 07/20/2019 HGB 8.6 (L) 07/20/2019 HCT 27.8 (L) 07/20/2019 PLT 370 07/20/2019 CHOL 252 (H) 05/10/2019 TRIG 95 07/09/2019 HDL 113 05/10/2019 ALT 17 07/09/2019 AST 29 07/09/2019 NA 142 07/20/2019 K 4.5 07/20/2019 CL 101 07/20/2019 CREATININE 1.70 (H) 07/20/2019 BUN 51 (H) 07/20/2019 CO2 25 07/20/2019 TSH 4.27 07/15/2019 INR 1.1 07/20/2019 LABA1C 6.3 (H) 06/25/2019 24 HOUR INTAKE/OUTPUT: Intake/Output Summary (Last 24 hours) at 07/20/2019 1337 Last data filed at 07/20/2019 1048 Gross per 24 hour Intake 633.19 ml Output 1945 ml Net -1311.81 ml IMAGING: Mra Head Wo Contrast Result Date: 07/12/2019 Known acute to subacute infarction in the right temporal lobe and lateral aspect of the right occipital lobe, stable in size since July 10, 2019. Associated local mass effect without midline shift. A few scattered tiny foci acute to subacute infarctions in the bilateral cerebral hemispheres andright cerebellar hemisphere, possibly embolic. Small old lacunar infarcts in the bilateral basal ganglia/periventricular white matter. 80% focal stenosis at the left ICA terminus. Asymmetrically small caliber of the M1 segment of left MCA. Occlusion of A1 segment of left MONSTER. 90% focal stenosis at the origin of the P2 segment of the right POLICY SERVICE COORDINATOR. Additional 80% focal stenosis along the P2 segments of the bilateral cable braider. 40% stenosis at the origins of the bilateral internal carotid arteries. The results were sent to radiology results communication. Xr Chest Portable Result Date: 07/17/2019 1. Endotracheal tube remains in appropriate position. The enteric tube courses off the field of view in the upper abdomen. 2. Interval improved aeration of the lungs with findings of mild residual edema and left effusion. Mra Neck Wo Contrast Result Date: 07/12/2019 Known acute to subacute infarction in the right temporal lobe and lateral aspect of the right occipital lobe, stable in size since July 10, 2019. Associated local mass effect without midline shift. A few scattered tiny foci acute to subacute infarctions in the bilateral cerebral hemispheres andright cerebellar hemisphere, possibly embolic. Small old lacunar infarcts in the bilateral basal ganglia/periventricular white matter. 80% focal stenosis at the left ICA terminus. Asymmetrically small caliber of the M1 segment of left MCA. Occlusion of A1 segment of left MONSTER. 90% focal stenosis at the origin of the P2 segment of the right POLICY SERVICE COORDINATOR. Additional 80% focal stenosis along the P2 segments of the bilateral cable braider. 40% stenosis at the origins of the bilateral internal carotid arteries. The results were sent to radiology results communication. Mri Brain W Wo Contrast, MRI cervical spine Wo contrast Result Date: 07/16/2019 MRI brain: Slight decrease in conspicuity of multifocal recent infarcts. There is multifocal enhancement associated with the right posterior temporal occipital infarct compatible with subacute infarct. There is also a small amount of developing high T1 signal and decreased gradient echo signal suggesting petechial hemorrhagic staining. Multiple old infarcts Multifocal small-vessel ischemic changeMRI cervical spine: Multilevel degenerative disc disease, greatest between C4 and C6-7. See above for details of each level. High signal in the rightward aspect of the cord at C3-4. This is age indeterminate and may be due to developing myelomalacia from cord compression below this level. Another consideration would be recent cord ischemic change. Other etiologies, to include neoplasm and transverse myelitis, for high signal in the cord are considered less likely at this time. Follow-up is recommended. Mri Brain Wo Contrast Result Date: 07/12/2019 Known acute to subacute infarction in the right temporal lobe and lateral aspect of the right occipital lobe, stable in size since July 10, 2019. Associated local mass effect without midline shift. A few scattered tiny foci acute to subacute infarctions in the bilateral cerebral hemispheres andright cerebellar hemisphere, possibly embolic. Small old lacunar infarcts in the bilateral basal ganglia/periventricular white matter. 80% focal stenosis at the left ICA terminus. Asymmetrically small caliber of the M1 segment of left MCA. Occlusion of A1 segment of left MONSTER. 90% focal stenosis at the origin of the P2 segment of the right POLICY SERVICE COORDINATOR. Additional 80% focal stenosis along the P2 segments of the bilateral cable braider. 40% stenosis at the origins of the bilateral internal carotid arteries. The results were sent to radiology results communication. Labs and Images reviewed with: [x] Dr. Wilder Rosales [] Dr. Landen Lua [] Dr. Alan Pedroza [] There are no new interval images to review. PHYSICAL EXAM NEUROLOGIC: Mental Status: Alert and oriented to person. Able to state her son's name. Following commands. Cranial Nerves: III: Pupils: equal, round, reactive to light III,IV,: Extra Ocular Movements: intact VII: Facial strength: Intact Motor Exam: Able to antigravity/resist gravity in bilateral upper extremities, 3/5 strength. Able to flex at the knee bilaterally with minimal assist. DRAINS: [x] There are no drains for Neuro Critical Care to monitor at this time. ASSESSMENT AND PLAN: The patient is a 68 yo female with a history of HTN, HLD, DM 2, CKD, CVA (2011 with no residual deficits), CAD, and aortic stenosis who was initially admitted on 07/03/19 after a scheduled CABGx3 and aortic valve replacement. Significant hypotension and bleeding post operatively, taken back to OR and found to have tamponade secondary to ruptured suture which was repaired. Chest closure performed 07/04. Found to have right MCA territory infarction, likely cardioembolic. Post operative encephalopathy improving. Encephalopathy, improving Change Seroquel to 25mg QHS PRN instead of scheduled BID dosing Recommend starting Prozac 10mg QD Right MCA territory infarction, cardioembolic On Heparin infusion OK to transition to PO anticoagulation for afib from our standpoint PT/OT/ST, Recommend PM&R consultation VIIVAN; Nephrology following Post CABG/aortic valve replacement, management per primary and Cards ID following; monitoring off antibiotics Neurosurgery evaluated cspine imaging; can follow up electively outpatient for cspine disease We will continue to follow along. For any changes in exam or patient status please contact Neuro Critical Care. Meseret Arechiga APRN - COMMUNITY LIVING SPECIALIST Neuro Critical Care Pager [phone] 07/20/2019 1:37 PM Associated attestation - Wilder Rosales MD - 07/21/2019 2:00 PM EST Neuro critical care Patient extubated 07/19 and is protecting airway and doing well respiratory smith. Hemodynamically stable and no vasopressors. Her awakening, level of alertness and simple command comprehension is improving She was able to antigravity right upper extremity and was able to flex both lower extremities, leftupper extremity has weak recreational resort manager difficulty with antigravity Recommend therapy evaluations and out of bed mobility if okay with surgical standpoint. Speech and swallow evaluation. P M & R evaluation Seroquel only at at bedtime Given her right cerebral stroke and history of atrial fibrillation, patient will benefit from oral anticoagulation as long-term secondary stroke prevention. Continue statins for secondary stroke prevention. Recommend to start SSRI. Patient was staffed 07/20 and we'll follow peripherally over the weekend. Please call neuro criticalcare team if any acute or new issues. Satnam Rosales MD * Rodrigo Patten MD - 07/20/2019 1:27 PM EST Pulmonary critical care progress note. Date and time: 07/20/2019 1:27 PM Patient's name: Eleanor Mcclain Patient's account/billing number: [id number] Patient's Date of : 1950 Age: 68 y.o. Date of Admission: 07/03/2019 5:13 AM Length of stay during current admission: 17 Primary Care Physician: Grayson Hernandez MD Code Status: Full Code Reason for initial consultation: Acute hypoxic respiratory failure ARDS/acute pulmonary edema SUBJECTIVE: OVERNIGHT EVENTS: 07/20/2019 No acute issues overnight Got extubated yesterday follows commands ands oriented to herself working with physical therapy sitting at the side of the bed Did not pass swallow study OBJECTIVE: VITAL SIGNS: BP (!) 174/72 Comment: attempting flexiflow Pulse 66 Temp 98.1 F (36.7 C) (Oral) Resp 18 Ht5' 2 (1.575 m) Wt 182 lb 12.2 oz (82.9 kg) SpO2 95% BMI 33.43 kg/m Tmax over 24 hours: Temp (24hrs), Av.1 F (36.7 C), Min:97.6 F (36.4 C), Max:98.6 F (37 C) Patient Vitals for the past 6 hrs: BP Temp Temp src Pulse Resp SpO2 07/20/19 1300 (!) 174/72 66 18 95 % 07/20/19 1235 136/64 58 15 95 % 07/20/19 1200 (!) 163/55 65 12 95 % 07/20/19 1127 63 07/20/19 1100 (!) 132/45 98.1 F (36.7 C) Oral 63 11 93 % 07/20/19 1000 (!) 143/53 66 10 96 % 07/20/19 0935 (!) 156/57 66 15 92 % 07/20/19 0900 (!) 175/60 66 16 (!) 86 % 07/20/19 0815 (!) 158/62 60 17 94 % 07/20/19 0800 (!) 161/63 98.6 F (37 C) Oral 59 14 95 % Intake/Output Summary (Last 24 hours) at 07/20/2019 1327 Last data filed at 07/20/2019 1048 Gross per 24 hour Intake 633.19 ml Output 1945 ml Net -1311.81 ml Wt Readings from Last 2 Encounters: 07/20/19 182 lb 12.2 oz (82.9 kg) 06/25/19 147 lb (66.7 kg) Body mass index is 33.43 kg/m . PHYSICAL EXAMINATION: Head and neck atraumatic, normocephalic Lymph nodes-no cervical, supraclavicular lymphadenopathy Neck-no JVP elevation Lungs -b/l equal air entry CVS- S1, S2 regular. No S3 no S4, no murmurs Sternotomy Abdomen-nontender, nondistended. Bowel sounds are present. No organomegaly Lower extremity-no edema Upper extremity-no edema Neurological-alert, oriented to herself, moves all extremities Any additional physical findings: MEDICATIONS: Scheduled Meds: cloNIDine 1 patch Transdermal Weekly amLODIPine 5 mg Oral Daily bumetanide 1 mg Intravenous BID QUEtiapine 25 mg Oral BID insulin glargine 20 Units Subcutaneous Nightly sodium chloride 20 mL Intravenous Once sodium chloride flush 10 mL Intravenous BID vitamin B-1 100 mg Oral Daily spironolactone 50 mg Oral BID carvedilol 12.5 mg Oral BID WC lidocaine 1 % injection 5 mL Intradermal Once sodium chloride flush 10 mL Intravenous 2 times per day insulin lispro 0-18 Units Subcutaneous TID WC insulin lispro 0-9 Units Subcutaneous Nightly amiodarone 200 mg Oral BID potassium chloride 40 mEq Intravenous Once famotidine 20 mg Oral Daily sodium chloride flush 10 mL Intravenous 2 times per day sodium chloride flush 10 mL Intravenous 2 times per day docusate sodium 100 mg Oral BID polyethylene glycol 17 g Oral Daily chlorhexidine 15 mL Mouth/Throat BID therapeutic multivitamin-minerals 1 tablet Oral Daily with breakfast atorvastatin 40 mg Oral Nightly clopidogrel 75 mg Oral Daily insulin lispro 0-6 Units Subcutaneous Nightly Continuous Infusions: heparin 25,000 units in 0.9% sodium chloride 250 mL infusion Stopped (07/20/19 0943) dextrose PRN Meds: hydrALAZINE, 10 mg, Q6H PRN bumetanide, 2 mg, PRN labetalol, 10 mg, Q4H PRN sodium chloride flush, 10 mL, PRN sodium chloride flush, 10 mL, PRN sodium chloride flush, 10 mL, PRN calcium chloride IVPB, 1 g, PRN magnesium sulfate, 1 g, PRN potassium chloride, 20 mEq, PRN acetaminophen, 650 mg, Q4H PRN acetaminophen, 650 mg, Q4H PRN oxyCODONE-acetaminophen, 1 tablet, Q4H PRN Or oxyCODONE-acetaminophen, 2 tablet, Q4H PRN bisacodyl, 10 mg, Daily PRN ondansetron, 4 mg, Q8H PRN albumin human, 25 g, PRN glucose, 15 g, PRN dextrose, 12.5 g, PRN glucagon (rDNA), 1 mg, PRN dextrose, 100 mL/hr, PRN VENT SETTINGS (Comprehensive) (if applicable): Vent Information $Ventilation: $Subsequent Day Ventilator Started: Yes Ventilator Stopped: Yes Ventilation Day(s): 7 Skin Assessment: Clean, dry, & intact Equipment ID: [id number] Equipment Changed: Suction catheter Vent Type: Servo i Vent Mode: CPAP Vt Ordered: 400 mL Pressure Ordered: 8 Rate Set: (S) 16 bmp Pressure Support: 6 cmH20 FiO2 : 30 % Sensitivity: 3 PEEP/CPAP: 5 I Time/ I Time %: 0.9 s Humidification Source: HME Nitric Oxide/Epoprostenol In Use?: No Additional Respiratory Assessments Pulse: 66 Resp: 18 SpO2: 95 % End Tidal CO2: 33 (%) Position: Semi-Newton's Humidification Source: HME Oral Care Completed?: Yes Oral Care: Mouthwash, Lip moisturizer applied, Mouth swabbed Subglottic Suction Done?: Yes ABG Lab Results Component Value Date UGY5YKV 29 07/19/2019 FIO2 40.0 07/19/2019 Laboratory findings: Complete Blood Count: Recent Labs 07/18/19 0431 07/19/19 0413 07/20/19 0648 WBC 21.3* 19.4* 23.1* HGB 8.4* 8.3* 8.6* HCT 26.3* 26.6* 27.8* PLT 246 244 370 Last 3 Blood Glucose: Recent Labs 07/18/19 0431 07/19/19 0413 07/20/19 0648 GLUCOSE 190* 252* 174* PT/INR: Lab Results Component Value Date PROTIME 11.7 07/20/2019 INR 1.1 07/20/2019 PTT: Lab Results Component Value Date APTT 79.3 07/20/2019 Comprehensive Metabolic Profile: Recent Labs 07/18/19 04307/19/19 0413 07/20/19 0648 NA 138 137 142 K 4.0 5.0 4.5 CL 97* 99 101 CO2 25 25 25 BUN 34* 44* 51* CREATININE 1.68* 1.67* 1.70* GLUCOSE 190* 252* 174* CALCIUM 8.8 8.7 8.7 Magnesium: Lab Results Component Value Date MG 2.8 07/20/2019 Phosphorus: Lab Results Component Value Date PHOS 5.4 07/20/2019 Ionized Calcium: Lab Results Component Value Date CAION 1.07 07/11/2019 Urinalysis: Troponin: No results for input(s): TROPONINI in the last 72 hours. Microbiology: Cultures during this admission: Blood cultures: [] None drawn [] Negative [] Positive (Details: ) Urine Culture: [] None drawn [] Negative [] Positive (Details: ) Sputum Culture: [] None drawn [] Negative [] Positive (Details: ) Endotracheal aspirate: [] None drawn [] Negative [] Positive (Details: ) Other pertinent Labs: Radiology/Imaging: Ct Head Wo Contrast Result Date: 07/10/2019 1. Stable appearance of right temporal lobe subacute infarct, as discussed above. 2. Redemonstration of multifocal bilateral basal ganglia remote lacunar infarcts. Mra Head Wo Contrast Result Date: 07/12/2019 Known acute to subacute infarction in the right temporal lobe and lateral aspect of the right occipital lobe, stable in size since July 10, 2019. Associated local mass effect without midline shift. A few scattered tiny foci acute to subacute infarctions in the bilateral cerebral hemispheres andright cerebellar hemisphere, possibly embolic. Small old lacunar infarcts in the bilateral basal ganglia/periventricular white matter. 80% focal stenosis at the left ICA terminus. Asymmetrically small caliber of the M1 segment of left MCA. Occlusion of A1 segment of left MONSTER. 90% focal stenosis at the origin of the P2 segment of the right POLICY SERVICE COORDINATOR. Additional 80% focal stenosis along the P2 segments of the bilateral cable braider. 40% stenosis at the origins of the bilateral internal carotid arteries. The results were sent to radiology results communication. Xr Chest Portable Result Date: 07/16/2019 Interval advancement of the enteric tube and the tip is not well seen. To be safe, retraction of the tube 1-1.5 cm may be useful to ensure it is separate from the carinal region. Slight worsening in multifocal airspace disease. The findings were sent to the Radiology Results Communication Center at6:46 am on 07/15/2019to be communicated to a licensed caregiver. Xr Chest Portable Result Date: 07/16/2019 X-ray not significantly changed Xr Chest Portable Result Date: 07/14/2019 *Endotracheal tube tip approximately 6 cm of the janes. *Interval increased interstitial prominence/vascular congestion with persistent left perihilar opacity and probable trace effusions. Xr Chest Portable Result Date: 07/13/2019 1. Interval improvement in pulmonary interstitial edema. Persistent left perihilar pulmonary opacity. Continued attention on follow-up examination is recommended. 2. Support hardware, as detailed above. Xr Chest Portable Result Date: 07/12/2019 Patchy airspace opacities bilaterally, may be related to pulmonary edema versus pneumonia, grossly stable. Stable mild cardiomegaly. Xr Chest Portable Result Date: 07/11/2019 Improved ET tube position now projecting 3.0 cm from the janes. Pulmonary edema. Small left effusion. Xr Chest Portable Result Date: 07/11/2019 Endotracheal tube placement with the tip suspected to be approximately 2 cm above the level of the janes. Increased left pleural effusion. Underlying pneumonia is not excluded. Xr Chest Portable Result Date: 07/11/2019 Endotracheal tube tip is still in the right mainstem bronchus and should be retracted approximately4-5 cm. Otherwise stable appearance of the chest. Xr Chest Portable Result Date: 07/10/2019 Persistent pulmonary edema. Mra Neck Wo Contrast Result Date: 07/12/2019 Known acute to subacute infarction in the right temporal lobe and lateral aspect of the right occipital lobe, stable in size since July 10, 2019. Associated local mass effect without midline shift. A few scattered tiny foci acute to subacute infarctions in the bilateral cerebral hemispheres andright cerebellar hemisphere, possibly embolic. Small old lacunar infarcts in the bilateral basal ganglia/periventricular white matter. 80% focal stenosis at the left ICA terminus. Asymmetrically small caliber of the M1 segment of left MCA. Occlusion of A1 segment of left MONSTER. 90% focal stenosis at the origin of the P2 segment of the right POLICY SERVICE COORDINATOR. Additional 80% focal stenosis along the P2 segments of the bilateral cable braider. 40% stenosis at the origins of the bilateral internal carotid arteries. The results were sent to radiology results communication. Mri Brain Wo Contrast Result Date: 07/12/2019 Known acute to subacute infarction in the right temporal lobe and lateral aspect of the right occipital lobe, stable in size since July 10, 2019. Associated local mass effect without midline shift. A few scattered tiny foci acute to subacute infarctions in the bilateral cerebral hemispheres andright cerebellar hemisphere, possibly embolic. Small old lacunar infarcts in the bilateral basal ganglia/periventricular white matter. 80% focal stenosis at the left ICA terminus. Asymmetrically small caliber of the M1 segment of left MCA. Occlusion of A1 segment of left MONSTER. 90% focal stenosis at the origin of the P2 segment of the right POLICY SERVICE COORDINATOR. Additional 80% focal stenosis along the P2 segments of the bilateral cable braider. 40% stenosis at the origins of the bilateral internal carotid arteries. The results were sent to radiology results communication. ASSESSMENT: 2. Acute hypoxemic respiratory failure requiring mechanical ventilation.- extubated 07/19 3. Status post AVR and CABG 07/03/2019. 4. Status post tamponade from distal anastomosis SVG-PLV site bleeding status post repair 07/03/2019. 5. Sternal closure 07/04/2019. 6. Acute right temporal /ischemic CVA Gram stain shows gram-negative rods gram-negative pneumonia pneumonia. 7. Possible seizure. 8. Acute encephalopathy secondary to above. 9. VIVIAN on CKD. 10. Postop atrial fibrillation.now rate cont 11. Hypertension. 12. Hyperlipidemia. 13. Diabetes mellitus. Type II with hyperglycemia Dysphagia Plan and recommendation: Monitor of Abx per ID Continue diuresis Got extubated yesterday Failed swallow study this am, will hold the heparin drip for 3 hrs, get NG tube and start tube feeds and restart heparin post insertion Incentive spirometry Please note that this chart was generated using voice recognition [employer] dictation software. Although every effort was made to ensure the accuracy of this automated activity director, some errors in activity director may have occurred. Manpreet Treadwell M.D. Pulmonary and critical care attending [facility]) 07/20/2019, 1:27 PM Attending Physician Statement I have discussed the care of Eleanor Mcclain, including pertinent history and exam findings, withthe resident. I have seen and examined the patient and the mendoza elements of all parts of the encounter have been performed by me. I agree with the assessment, plan and orders as documented by the resident with additions . Place Flexiflo and start tube feeds Continue PT OT DC Decadron Total critical care time caring for this patient with life threatening, unstable organ failure, including direct patient contact, management of life support systems, review of data including imaging and labs, discussions with other team members and physicians at least 30 Min so far today, excludingprocedures. Treatment plan Discussed with nursing staff in detail , all questions answered . Please note that this chart was generated using voice recognition [employer] dictation software. Although every effort was made to ensure the accuracy of this automated activity director, some errors in activity director may have occurred. * Brynn Louie RN - 07/20/2019 1:04 PM EST flexiflow attempted putting flexiflow on ice will attempt again in 15 minutes * Loraine Mary RD, LD - 07/20/2019 12:14 PM EST Nutrition Assessment (Enteral Nutrition) Type and Reason for Visit: Reassess Nutrition Recommendations: -Continue NPO status per DIE REPAIRER STAMPING rec's -Restart tube feeding as able of Glucerna 1.2 (Diabetic) @ 50 mL/hr x 24 hrs ~> 1440 kcals, 72 gms protein -Will continue to monitor EN intake/tolerance; will adjust as needed Nutrition Assessment: Pt declining from a nutritional standpoint aeb tube feeding held during time of visit - RN reports plan to restart. Pt was extubated yesterday but failed swallow eval today 2/2 lethargy and dysphagia. Pt w/ wt flux since admission, most likely r/t fluid. Will monitor for restart of EN. Malnutrition Assessment: Malnutrition Status: Insufficient data Context: Acute illness or injury Findings of the 6 clinical characteristics of malnutrition (Minimum of 2 out of 6 clinical characteristics is required to make the diagnosis of moderate or severe Protein Calorie Malnutrition based on AND/ASPEN Guidelines): 1. Energy Intake-Unable to assess, Unable to assess 2. Weight Loss-No significant weight loss, 3. Fat Loss-No significant subcutaneous fat loss, 4. Muscle Loss-No significant muscle mass loss, 5. Fluid Accumulation-Mild fluid accumulation, Extremities, Generalized 6. Microbiology Laboratory Manager Strength-Not measured Nutrition Risk Level: High Nutrition Needs: Estimated Daily Total Kcal: 1.2-1.4 ~>4161-2531 kcals/d Estimated Daily Protein (g): 1.2-1.4 gm/kg ~>60-70 gms/d Nutrition Diagnosis: Problem: Inadequate oral intake Etiology: related to Difficulty swallowing(recent extubation, lethargic) ? Signs and symptoms: as evidenced by Swallow study results, NPO status due to medical condition, Nutrition support - EN Objective Information: Wound Type: Multiple(Incisions ) Current Nutrition Therapies: Oral Diet Orders: NPO Tube Feeding (TF) Orders: Feeding Route: Nasogastric Formula: Diabetic Rate (ml/hr):held Duration: Continuous Goal TF & Flush Orders Provides: Glucerna 1.2 @ 50 mL/hr x 24 hrs ~> 1440 kcals, 72 gms protein Anthropometric Measures: Ht: 5' 2 (157.5 cm) Current Body Wt: 182 lb (82.6 kg) Admission Body Wt: 144 lb (65.3 kg) Weight Change: 146-147 lbs over 2 mo per EMR; 36 lb wt gain x 1 wk [place] Body Wt: 110 lb 3.7 oz (50 kg), % [place] Body 159% adm/ideal BMI Classification: BMI 25.0 - 29.9 Overweight(26.2 - admit wt ) Nutrition Interventions: Continue NPO(Restart tube feeding as able ) Continued Inpatient Monitoring, Education not appropriate at this time, Speech Therapy Nutrition Evaluation: Evaluation: Progress towards goals declining Goals: Meet 75-100% of estimated nutrition needs Monitoring: Nutrition Progression, TF Intake, TF Tolerance, I&O, Skin Integrity, Wound Healing,Weight, Pertinent Labs, Monitor Bowel Function Contact Number: [phone] * Lita Mancini, FIELD STAFF - 07/20/2019 11:49 AM EST Physical Therapy Facility/Department: [facility] [[email or web address]] CAR 1 Daily Treatment Note NAME: Eleanor Mcclain : 1950 Date of Service: 07/20/2019 Discharge Recommendations: Patient would benefit from continued therapy after discharge PT Equipment Recommendations Other: CTA Assessment Body structures, Functions, Activity limitations: Decreased functional mobility ;Decreased ROM;Decreased strength Assessment: Pt unsafe to try anyfunctional mobilty without skilled assist at this time. Would benefit from more PT to address deficit. Specific instructions for Next Treatment: RE-EVAL Prognosis: Good PT Education: Plan of Care;General Safety REQUIRES PT FOLLOW UP: Yes Activity Tolerance Activity Tolerance: Patient limited by endurance;Patient limited by fatigue;Other Activity Tolerance: Pt very lethargic throughout. Patient Diagnosis(es): The encounter diagnosis was CAD, multiple vessel. has a past medical history of Aortic stenosis, CAD (coronary artery disease), Chronic kidney disease, CVA (cerebral vascular accident) (HCC), Diabetes mellitus (HCC), Hyperlipidemia, Hypertension, Kidney failure, Wears dentures, Wears prescription eyeglasses, and Wellness examination. has a past surgical history that includes Hysterectomy; Gallbladder surgery; Cardiac catheterization (Bilateral, 06/06/2019); Cholecystectomy; Colonoscopy; Coronary artery bypass graft (N/A, 07/03/2019); Coronary artery bypass graft (N/A, 07/03/2019); Sternum Debridement (N/A, 07/04/2019); and hc piccpowerpicc double (07/13/2019). Restrictions Restrictions/Precautions Restrictions/Precautions: Cardiac, General Precautions Required Braces or Orthoses?: No Position Activity Restriction Sternal Precautions: No Pushing, No Pulling, 5# Lifting Restrictions Other position/activity restrictions: Up in chair, ambulate patient Subjective General Response To Previous Treatment: Patient with no complaints from previous session. Subjective Subjective: RN and pt agreeable to PT.Pt sleeping upon arrival, easily aroused General Comment Comments: Co Treated with OT d/t level of assist needed. Pain Screening Patient Currently in Pain: Denies Vital Signs Patient Currently in Pain: Denies Orientation Cognition Objective Bed mobility Supine to Sit: Moderate assistance;2 Person assistance Sit to Supine: Moderate assistance;2 Person assistance Comment: Pt tolerated 10 mins at EOB requiring min to CGA for balance while demonstrating lateral left lean, able to correct with VC/tactile cues Exercises Straight Leg Raise: x10 AAROM d/t fatigue and weakness Hip Flexion: x10 AAROM d/t fatigue and weakness Hip Abduction: x10 AAROM d/t fatigue and weakness Knee Long Arc Quad: x10 AAROM d/t fatigue and weakness Ankle Pumps: x10 AROM Upper Extremity: 10 reps all planes withing sternal precautions. AAROM Goals Short term goals Time Frame for Short term goals: 14 visits Short term goal 1: prevent contractures x 4 Short term goal 2: facilitate active movement x 4 once pt is no longer sedated Short term goal 3: mobilize pt and set goals when medically appropriate Patient Goals Patient goals : pt unable to state Plan Plan Times per week: 7x/wk Times per day: Daily Specific instructions for Next Treatment: RE-EVAL Current Treatment Recommendations: Strengthening, ROM Safety Devices Type of devices: Left in bed Restraints Initially in place: No Therapy Time Individual Concurrent Group Co-treatment Time In 09 ( OT) Time Out 0953 Minutes 30 Lita Mancini PTA * Ambika Sigala, OT - 07/20/2019 10:57 AM EST Occupational Therapy Occupational Therapy Initial Assessment Date: 07/20/2019 Patient Name: Eleanor Mcclain : 1950 Date of Service: 07/20/2019 Discharge Recommendations: Further therapy recommended at discharge. CTA. Assessment Performance deficits / Impairments: Decreased functional mobility ;Decreased ADL status;Decreased high-level IADLs;Decreased balance;Decreased strength;Decreased endurance Assessment: Pt to benefit from skilled OT services post discharge due to the above deficits. Prognosis: Good Decision Making: Medium Complexity OT Education: OT Role;Plan of Care;Transfer Training REQUIRES OT FOLLOW UP: Yes Activity Tolerance Activity Tolerance: Patient Tolerated treatment well Safety Devices Safety Devices in place: Yes Type of devices: Left in bed;Nurse notified;Call light within reach;All fall risk precautions in place Patient Diagnosis(es): The encounter diagnosis was CAD, multiple vessel. has a past medical history of Aortic stenosis, CAD (coronary artery disease), Chronic kidney disease, CVA (cerebral vascular accident) (HCC), Diabetes mellitus (HCC), Hyperlipidemia, Hypertension, Kidney failure, Wears dentures, Wears prescription eyeglasses, and Wellness examination. has a past surgical history that includes Hysterectomy; Gallbladder surgery; Cardiac catheterization (Bilateral, 06/06/2019); Cholecystectomy; Colonoscopy; Coronary artery bypass graft (N/A, 07/03/2019); Coronary artery bypass graft (N/A, 07/03/2019); Sternum Debridement (N/A, 07/04/2019); and piccpowerpicc double (07/13/2019). Restrictions Restrictions/Precautions Restrictions/Precautions: Cardiac, General Precautions Required Braces or Orthoses?: No Position Activity Restriction Sternal Precautions: No Pushing, No Pulling, 5# Lifting Restrictions Other position/activity restrictions: Up in chair, ambulate patient Subjective General Patient assessed for rehabilitation services?: Yes Family / Caregiver Present: No Patient Currently in Pain: Denies Social/Functional History Social/Functional History Lives With: Spouse Type of Home: House Home Layout: Two level, Able to Live on Main level with bedroom/bathroom, Performs ADL's on one level Home Access: Stairs to enter with rails Entrance Stairs - Number of Steps: 2-3 Bathroom Shower/Tub: Tub/Shower unit Bathroom Toilet: Standard Bathroom Equipment: Grab bars in shower, Shower chair ADL Assistance: Independent Homemaking Assistance: Independent Homemaking Responsibilities: Yes Ambulation Assistance: Independent Transfer Assistance: Independent Active Air Traffic Coordinator: Yes Mode of Transportation: Car 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 Pt sat EOB for 10 minutes) ADL Feeding: Maximum assistance Grooming: Maximum assistance(Placed wash cloth in pt's hand, pt able to bring to face but unable tothoroughly wash) UE Bathing: Maximum assistance LE Bathing: Dependent/Total UE Dressing: Maximum assistance Toileting: Dependent/Total Tone RUE RUE Tone: Normotonic Tone LUE LUE Tone: Normotonic Bed mobility Supine to Sit: Moderate assistance;2 Person assistance Sit to Supine: Moderate assistance;2 Person assistance Cognition Overall Cognitive Status: WFL Sensation Overall Sensation Status: WFL(denies numbness/tingling) LUE PROM (degrees) LUE PROM: WFL LUE AROM (degrees) L Shoulder Flexion 0-180: limited due to weakness observed, 0-45 L Elbow Flexion 0-145: WFL RUE PROM (degrees) RUE PROM: WFL RUE AROM (degrees) RUE AROM : Exceptions R Shoulder Flexion 0-180: limited due to weakness observed 0-90 LUE Strength Gross LUE Strength: Exceptions to WFL L Shoulder Flex: 2/5 L Elbow Flex: 2/5 L Hand General: 1/5 RUE Strength Gross RUE Strength: Exceptions to WFL R Shoulder Flex: 3-/5 R Elbow Flex: 3-/5 R Hand General: 2/5 Plan Plan Times per week: 5x [facility] Score [facility] In[facility] Daily Activity Raw Score: 11 (07/20/19 105) [facility] Inpatient ADL T-Scale Score : 29.04 (07/20/19 105) ADL Inpatient [facility] 0-100% Score: 70.42 (07/20/19 1058) ADL Inpatient [facility] G-Code Modifier : CL (07/20/191057) Goals Short term goals Time Frame for Short term goals: By discharge pt will.. Short term goal 1: demo supine<>sit with mod A x1 Short term goal 2: demo grooming task with set up and SBA Short term goal 3: demo UB ADL task with set up and min A Short term goal 4: demo LB ADL task with set up and mod A Short term goal 5: progress mobility as medically able Therapy Time Individual Concurrent Group Co-treatment Time In 919 Time Out 0944 Minutes 24 co tx with PT Timed Code Treatment Minutes: 8 Minutes Ambika Sigala OTR/L * Nicole Garcia SLP - 07/20/2019 9:49 AM EST Speech Language Pathology Facility/Department: [facility] [[email or web address] CAR 1 Initial Speech/Language/Cognitive Assessment NAME: Eleanor Mcclain : 1950 ADMISSION DATE: 07/03/2019 ADMITTING DIAGNOSIS: has CAD, multiple vessel; Encephalopathy; Acute cerebral infarction (HCC); Seizure (HCC); Encephalopathy, unspecified; Ischemic stroke (HCC); Chronic a-fib; Anticoagulated; Acutepostoperative respiratory failure (HCC); and Cervical stenosis of spinal canal on their problem list. Date of Eval: 07/20/2019 Evaluating Therapist: MIKHAIL Hernandez Primary Complaint: Initial Presentation (Admitted 07/03/19): The patient is a 68 y.o. female with a history of HTN, HLD, DM 2, CKD, CVA (2011 with no residual deficits), CAD, and aortic stenosis who was initially admitted on 06/23/19 after a scheduled CABGx3 andaortic valve replacement. Patient had been symptomatic with increased fatigue and increased shortness of breath for the past year. Patient acutely became hypotensive (SBP 40's per nursing) post operatively with significant increase in chest tube drainage. Taken back to OR where she was found to have tamponade due to suture tear. Chest left open and then closed the next day. She has been in and out of atrial fibrillation post operatively. On 07/[address] Head was obtained as patient was not following commands which showed evidence of subacute infarct in the right posterior temporal lobe. Neurology was consulted and evaluated patient on 07/07. That evening, she was noted to have brief episode of seizure like activity described as full body shaking by RN. Loaded with 1g Keppra and continued on 500mg BID per Neurology. Repeat CT Head 07/08 showed evolving moderate size right MCA territory infarction. EEG was obtained on 07/09 showing no seizure activity, moderate encephalopathy. Patient was started on low intensity heparin, no bolus by Neurology on 07/09 in the setting of paroxysmal afib. A repeat CT Head was obtained on 07/10 which did not show any evidence of hemorrhagic conversion. Patientwas extubated on 07/09 with no improvement in neurological exam. She was re-intubated on 07/11 in theearly morning due to severe hypoxia and started on ARDS protocol which included administration of Nimbex. Neuro Critical Care asked to evaluate for further recommendations. Pain: Pain Assessment Pain Assessment: 0-10 Pain Level: 0 Assessment: Pt presents with mild receptive and moderate-severe expressive aphasia characterized by impaired ability to follow 1-step directions, answer yes/no questions, complete automatic and divergent naming tasks, and difficulty stating biographical information. Pt lethargic throughout evaluation and required moderate verbal and tactile cues to remain awake and alert. Pt reported I'm exhausted several times during session, and pt only answered yes/no questions with yes during evaluation. Occasionalperseverations noted. Pt with no dysarthria or O/M deficits. ST to follow up and provide treatment to address noted deficits. Verbal education provided. Recommendations: Requires DIE REPAIRER STAMPING Intervention: Yes Duration/Frequency of Treatment: 3-5x per week D/C Recommendations: Further therapy recommended at discharge Plan: Goals: Short-term Goals Goal 1: Pt will follow 1-step commands with 90% accuracy Goal 2: Pt will answer basic yes/no questions with 90% accuracy Goal 3: Pt will state biographical information with 90% accuracy Goal 4: Pt will complete automatic language tasks with 90% accuracy Goal 5: Pt will complete remaining portions of speech/language evaluation as able. Patient/family involved in developing goals and treatment plan: yes Subjective: Previous level of function and limitations: General Chart Reviewed: Yes Family / Caregiver Present: No Vision Vision: Within Functional Limits Hearing Hearing: Within functional limits Objective: Oral/Motor Oral Motor: Within functional limits Auditory Comprehension Comprehension: Exceptions Yes/No Questions: Moderate(1/4 (pt only answered yes throughout evaluation)) Basic Questions: To be assessed in therapy One Step Basic Commands: Moderate(4/8) Two Step Basic Commands: Moderate(2/4) Common Objects: To be assessed in therapy Expression Primary Mode of Expression: Verbal Verbal Expression Verbal Expression: Exceptions to functional limits Repetition: To be assessed in therapy Automatic Speech: To be assessed in therapy(When asked to count from one to ten pt would repeat 1 to 10 ) Divergent: Severe(1 concrete unit named in 30 seconds ) Responsive: To be assessed in therapy Motor Speech Motor Speech: Within Functional Limits Cognition: Orientation Overall Orientation Status: Impaired Orientation Level: Oriented to place;Disoriented to time;Oriented to person;Disoriented to situation Prognosis: Speech Therapy Prognosis Prognosis: Guarded Individuals consulted Consulted and agree with results and recommendations: Patient Education: Patient Education: yes Patient Education Response: Verbalizes understanding Therapy Time: Individual Concurrent Group Co-treatment Time In 0850 Time Out 0900 Minutes 10 MIKHAIL Hernandez 07/20/2019 9:49 AM * Janusz Stein MD - 07/20/2019 9:41 AM EST Tyra Vice President [employer] Progress Note Date: 07/20/2019 Patient name: Eleanor Mcclain Date of admission: 07/03/2019 5:13 AM Date of : 1950 PCP: Grayson Hernandez MD Reason for Admission: CAD, multiple vessel [I25.10] Subjective: Patient seen and examined. Patient awake, denies shortness of breath. I/O last 3 completed shifts: In: 733.2 [I.V.:483.2; NG/GT:100; IV Piggyback:150] Out: 1900 [Urine:1900] I/O this shift: In: - Out: 235 [Urine:235] In: 633.2 [I.V.:483.2] Out: 1635 [Urine:1635] Intake/Output Summary (Last 24 hours) at 07/20/2019 0941 Last data filed at 07/20/2019 0912 Gross per 24 hour Intake 633.19 ml Output 1960 ml Net -1326.81 ml Medications: Scheduled Meds: cloNIDine 1 patch Transdermal Weekly amLODIPine 5 mg Oral Daily bumetanide 1 mg Intravenous BID QUEtiapine 25 mg Oral BID ampicillin-sulbactam 1.5 g Intravenous Q12H insulin glargine 20 Units Subcutaneous Nightly sodium chloride 20 mL Intravenous Once sodium chloride flush 10 mL Intravenous BID vitamin B-1 100 mg Oral Daily spironolactone 50 mg Oral BID carvedilol 12.5 mg Oral BID WC lidocaine 1 % injection 5 mL Intradermal Once sodium chloride flush 10 mL Intravenous 2 times per day insulin lispro 0-18 Units Subcutaneous TID WC insulin lispro 0-9 Units Subcutaneous Nightly amiodarone 200 mg Oral BID potassium chloride 40 mEq Intravenous Once famotidine 20 mg Oral Daily sodium chloride flush 10 mL Intravenous 2 times per day sodium chloride flush 10 mL Intravenous 2 times per day docusate sodium 100 mg Oral BID polyethylene glycol 17 g Oral Daily chlorhexidine 15 mL Mouth/Throat BID therapeutic multivitamin-minerals 1 tablet Oral Daily with breakfast atorvastatin 40 mg Oral Nightly clopidogrel 75 mg Oral Daily insulin lispro 0-6 Units Subcutaneous Nightly Continuous Infusions: heparin 25,000 units in 0.9% sodium chloride 250 mL infusion 1,460 Units/hr (07/20/19 0242) dexmedetomidine (PRECEDEX) IV infusion Stopped (07/19/19 1417) dextrose CBC: Recent Labs 07/18/1943007/19/1941207/20/19 0648 WBC 21.3* 19.4* 23.1* HGB 8.4* 8.3* 8.6* PLT 246 244 370 BMP: Recent Labs 07/18/1943007/19/193 07/20/19 0648 NA 138 137 142 K 4.0 5.0 4.5 CL 97* 99 101 CO2 25 25 25 BUN 34* 44* 51* CREATININE 1.68* 1.67* 1.70* GLUCOSE 190* 252* 174* Hepatic: No results for input(s): AST, ALT, ALB, BILITOT, ALKPHOS in the last 72 hours. Troponin: No results for input(s): TROPONINI in the last 72 hours. No results for input(s): TROPONINT in the last 72 hours. BNP: No results for input(s): PROBNP in the last 72 hours. No results for input(s): BNP in the last 72 hours. Lipids: No results for input(s): CHOL, HDL in the last 72 hours. Invalid input(s): LDLCALCU INR: Recent Labs 07/18/1943007/19/19 0413 07/20/19 0648 INR 1.1 1.1 1.1 Objective: Vitals: BP (!) 175/60 Pulse 66 Temp 98.6 F (37 C) (Oral) Resp 16 Ht 5' 2 (1.575 m) Wt 182 lb 12.2 oz (82.9 kg) SpO2 (!) 86% BMI 33.43 kg/m General appearance: extubated HEENT: Head: Normocephalic, atraumatic without any obvious abnormalities. Lungs: Coarse breath sound b/l Heart: raza, no murmurs, mechanical click Abdomen: soft, nontender with bowel sounds present in all 4 quadrants. Extremities: Lower extremity edema is present + bilaterally. Peripheral pulses in b/l LE present Integumentum:Intact with no rashes noted. Diagnostic Studies: EKG: Normal sinus rhythm ECHO: 06/27/2019 Left ventricle is normal in size, increased septal wall thickness, global left ventricular systolic function is low normal, calculated ejection fraction is 51%. Evidence of moderate (grade II) diastolic dysfunction. Peak instantaneous gradient 58 mmHg and mean gradient 34 mmHg, suggesting moderate to severe aortic stenosis. Mild to moderate mitral stenosis ( calculated valve area of 3.73cm2 with a mean gradient of 6mmHg.) Mild mitral regurgitation. Cath 05/2019 - LAD: p LAD 70% stenosis - LCX - co-dominant, OM1: 70% stenosis - RCA- 50% PDA MRI brain/neck: 07/13 Known acute to subacute infarction in the right temporal lobe and lateral aspect of the right occipital lobe, stable in size since July 10, 2019. Associated local mass effect without midline shift. A few scattered tiny foci acute to subacute infarctions in the bilateral cerebral hemispheres and right cerebellar hemisphere, possibly embolic. Small old lacunar infarcts in the bilateral basal ganglia/periventricular white matter. 80% focal stenosis at the left ICA terminus. Asymmetrically small caliber of the M1 segment of left MCA. Occlusion of A1 segment of left MONSTER. 90% focal stenosis at the origin of the P2 segment of the right POLICY SERVICE COORDINATOR. Additional 80% focal stenosis along the P2 segments of the bilateral cable braider. 40% stenosis at the origins of the bilateral internal carotid arteries. MRI 07/16 Slight decrease in conspicuity of multifocal recent infarcts. There is multifocal enhancement associated with the right posterior temporal occipital infarct compatible with subacute infarct. There is also a small amount of developing high T1 signal and decreased gradient echo signal suggesting petechial hemorrhagic staining. Multiple old infarcts Multifocal small-vessel ischemic change MRI cervical spine: Multilevel degenerative disc disease, greatest between C4 and C6-7. See above for details of each level. High signal in the rightward aspect of the cord at C3-4. This is age indeterminate and may be due to developing myelomalacia from cord compression below this level. Another consideration would be recent cord ischemic change. Other etiologies, to include neoplasm and transverse myelitis, for high signal in the cord are considered less likely at this time. Follow-up is recommended. Assessment / Acute Cardiac Problems: 1. Severe and MVD - sp AVR 21MM INTUITY VALVE 07/03/2019 and CABG - CAMPBELL-LAD, SVG- OM2, SVG- PVL 2. Post-op bleeding with tamponade related to distal anastomosis site bleeding from SVG-PLV s/p repair 07/03/2019 and now s/p closure of chest wall 07/04/2019 3. Paroxysmal A. fib - episode 07/06 and 07/07 and 07/14 - now in sinus and on amiodarone 4. Resp failure - re-intubated 07/11/2019 - extubated 07/19/2019 5. Intra OP LOVE LV function of 45%, was 51% on pre op TTE 6. Possible seizure episode 07/07 7. Hypertensive urgency 8. DM-2 9. Post OP blood loss anemia (Hgb 7.0) -s/p one unit PRBC 07/16/2019 10. VIVIAN - nephrology following, stable 11. Paroxysmal afib 12. Thrombocytopenia - resolved Plan of Treatment: 1. On Plavix, Lipitor, Coreg 12.5 bid, Bumex 1 mg IV bid, Aldactone 50 bid. - unable to get oral medications due to pending swallow eval. Plan NG placement today- restart oral medications 2. Amlodipine 5 mg added for uncontrolled HTN, to be restarted after placement of NG 3. Continue oral amiodarone 200 mg BID 4. On heparin drip for A. Fib - can be transitioned to oral anticoagulation per neurology once no more procedures planned 5. Encephalopathy improving - following commands 6. Diuresis per Nephrology, Cr up trending consider 7. Repeat ECHO with LVEF 45%, aortic valve in position with no significant AI and mean gradient of 13 mm Hg, no pericardial effusion 8. Possible Seizures, EEG with encephalopathy with out evidence of seizures 9. Repeat MRI redomonstration of stroke with possible small amount of petechial hemorrhage with C spine changes as mentioned above - neurosurgery consulted for spine findings on MRI no intervention recommended 10. Post OP management per CT surgery Thank you for allowing us to participate in Eleanor Mcclain's care. Will follow with you. Electronically signed on 07/20/19 at 9:41 AM by: Nuha Coronel MD Fellow, Cardiovascular Diseases [facility] Attending Physician Statement I have discussed the care of the patient, including pertinent history and exam findings, with the resident. I have seen and examined the patient and the mendoza elements of all parts of the encounter have been performed by me. I agree with the assessment, plan and orders as documented by the resident. Pt failed swallow study Janusz Stein MD * Nicole Garcia SLP - 07/20/2019 9:36 AM EST Speech Language Pathology Facility/Department: [place] [address] CLINICAL BEDSIDE SWALLOW EVALUATION NAME: Eleanor Mcclain : 1950 ADMISSION DATE: 07/03/2019 ADMITTING DIAGNOSIS: has CAD, multiple vessel; Encephalopathy; Acute cerebral infarction (HCC); Seizure (HCC); Encephalopathy, unspecified; Ischemic stroke (HCC); Chronic a-fib; Anticoagulated; Acutepostoperative respiratory failure (HCC); and Cervical stenosis of spinal canal on their problem list. Date of Eval: 07/20/2019 Evaluating Therapist: Nicole Garcia Current Diet level: Current Diet : NPO Current Liquid Diet : NPO Primary Complaint Initial Presentation (Admitted 07/03/19): The patient is a 68 y.o. female with a history of HTN, HLD, DM 2, CKD, CVA (2011 with no residual deficits), CAD, and aortic stenosis who was initially admitted on 06/23/19 after a scheduled CABGx3 andaortic valve replacement. Patient had been symptomatic with increased fatigue and increased shortness of breath for the past year. Patient acutely became hypotensive (SBP 40's per nursing) post operatively with significant increase in chest tube drainage. Taken back to OR where she was found to have tamponade due to suture tear. Chest left open and then closed the next day. She has been in and out of atrial fibrillation post operatively. On 07/[address] Head was obtained as patient was not following commands which showed evidence of subacute infarct in the right posterior temporal lobe. Neurology was consulted and evaluated patient on 07/07. That evening, she was noted to have brief episode of seizure like activity described as full body shaking by RN. Loaded with 1g Keppra and continued on 500mg BID per Neurology. Repeat CT Head 07/08 showed evolving moderate size right MCA territory infarction. EEG was obtained on 07/09 showing no seizure activity, moderate encephalopathy. Patient was started on low intensity heparin, no bolus by Neurology on 07/09 in the setting of paroxysmal afib. A repeat CT Head was obtained on 07/10 which did not show any evidence of hemorrhagic conversion. Patientwas extubated on 07/09 with no improvement in neurological exam. She was re-intubated on 07/11 in theearly morning due to severe hypoxia and started on ARDS protocol which included administration of Nimbex. Neuro Critical Care asked to evaluate for further recommendations. Pain: Pain Assessment Pain Assessment: 0-10 Pain Level: 0 Reason for Referral Eleanor Mcclain was referred for a bedside swallow evaluation to assess the efficiency of her swallow function, identify signs and symptoms of aspiration and make recommendations regarding safe dietary consistencies, effective compensatory strategies, and safe eating environment. Impression Recommend pt remain NPO with alternative means of nutrition at this time. Pt lethargic and requiredcues to remain awake and alert for BSSE. +immediate wet, weak cough with puree consistency. Pt heldbolus in oral cavity for 1-2 seconds before initiating swallow. Required verbal cues to open mouth to take bolus from spoon. Recommend repeat BSSE when pt more awake and alert. Results and recommendations reported to RN. Dysphagia Diagnosis: Mild oral stage dysphagia;Mild to moderate pharyngeal stage dysphagia Dysphagia Outcome Severity Scale: Level 1: Severe dysphagia- NPO. Unable to tolerate any PO safely Treatment Plan Requires DIE REPAIRER STAMPING Intervention: Yes Duration/Frequency of Treatment: 1-2x per week D/C Recommendations: Further therapy recommended at discharge. Recommended Diet and Intervention Diet Solids Recommendation: NPO Liquid Consistency Recommendation: NPO Recommended Form of Meds: Via alternative means of nutrition Recommendations: NPO Therapeutic Interventions: Patient/Family education;Laryngeal exercises;Bolus control exercises;Meg;Tongue base strengthening Treatment/Goals Dysphagia Goals: The patient will tolerate recommended diet without observed clinical signs of aspiration;The patient will tolerate repeat BSE when able. Pt will complete OM/EX for dysphagia 10-20x per session. General Chart Reviewed: Yes Behavior/Cognition: Lethargic;Requires cueing Temperature Spikes Noted: No Respiratory Status: Room air O2 Device: None (Room air) Communication Observation: Aphasia Follows Directions: Simple Dentition: Some missing teeth Patient Positioning: Upright in bed Baseline Vocal Quality: Weak;Aphonic Volitional Cough: Weak Consistencies Administered: Dysphagia Pureed (Dysphagia I) Vision/Hearing Vision Vision: Within Functional Limits Hearing Hearing: Within functional limits Oral Motor Deficits Oral/Motor Oral Motor: Within functional limits Oral Phase Dysfunction Oral Phase Oral Phase: Exceptions Oral Phase Oral Phase - Comment: Pt held bolus in oral cavity for 1-2 seconds before initiating swallow. Pt required cues to open mouth to take bolus from spoon. No lingual residue noted. Indicators of Pharyngeal Phase Dysfunction Pharyngeal Phase Pharyngeal Phase: Exceptions Pharyngeal Phase Pharyngeal: +immediate wet weak cough with pureed consistency. +increased wet vocal quality with puree. Prognosis Prognosis Prognosis for safe diet advancement: guarded Individuals consulted Consulted and agree with results and recommendations: Patient Education Patient Education: yes Patient Education Response: Verbalizes understanding Therapy Time DIE REPAIRER STAMPING Individual Minutes Time In: 0900 Time Out: 0910 Minutes: 10 MIKHAIL Hernandez 07/20/2019 9:36 AM * Nghia Jackson MD - 07/20/2019 9:30 AM EST Nephrology Progress Note SUBJECTIVE Pt was seen and examined. Following patient for VIVIAN from ischemic ATN. Patient came in for CABG and AVR which was complicated with postoperative cardiac tamponade and hypotension, had graft displacement as well. Required redo procedure and chest wash out post surgery. Right posterior temporal/occipital subacute infarct. + PAF Creatinine stable at 1.7 today, baseline creatinine is 1.2-1.4 She is on bumex IV bid currently, dose adjusted yesterday Pt was extubated yesterday . This am follows simple commands . Pt is scheduled to have a swallow study this am Fajardo still in place. Hemodynamically stable. Patient currently receiving Aldactone and Bumex she is on heparin OBJECTIVE CURRENT TEMPERATURE: Temp: 98.6 F (37 C) MAXIMUM TEMPERATURE OVER 24HRS: Temp (24hrs), Av.9 F (36.6 C), Min:96.8 F (36 C), Max:98.6 F (37 C) CURRENT RESPIRATORY RATE: Resp: 16 CURRENT PULSE: Pulse: 66 CURRENT BLOOD PRESSURE: BP: (!) 175/60 24HR BLOOD PRESSURE RANGE: Systolic (24hrs), Av , Min:136 , Max:189 ; Diastolic (24hrs), Av, Min:52, Max:100 24HR INTAKE/OUTPUT: Intake/Output Summary (Last 24 hours) at 07/20/2019 0930 Last data filed at 07/20/2019 0912 Gross per 24 hour Intake 633.19 ml Output 1960 ml Net -1326.81 ml WEIGHT : Patient Vitals for the past 96 hrs (Last 3 readings): Weight 07/20/19 0542 182 lb 12.2 oz (82.9 kg) 07/19/19 0600 158 lb 4.6 oz (71.8 kg) 07/18/19 0000 169 lb 15.6 oz (77.1 kg) PHYSICAL EXAM General: awake and following simple commands Neck: no JVD Chest: clear to auscultation with diminished breath sounds at the bases Cardiac: Regular rate and rhythm with positive S1 and S2 Abdomen: Obese and soft and mildly distended, sluggish bowel sounds Extremities: + lower extremity edema Neuro: She did squeeze hands on command today CURRENT MEDICATIONS cloNIDine (CATAPRES) 0.2 MG/24HR 1 patch, Weekly amLODIPine (NORVASC) tablet 5 mg, Daily hydrALAZINE (APRESOLINE) injection 10 mg, Q6H PRN bumetanide (BUMEX) injection 1 mg, BID dexamethasone (DECADRON) injection 4 mg, Q6H QUEtiapine (SEROQUEL) tablet 25 mg, BID ampicillin-sulbactam (UNASYN) 1.5 g IVPB minibag, Q12H insulin glargine (LANTUS) injection vial 20 Units, Nightly 0.9 % sodium chloride bolus, Once bumetanide (BUMEX) injection 2 mg, PRN sodium chloride flush 0.9 % injection 10 mL, BID heparin (porcine) 25,000 Units in sodium chloride 0.9 % 250 mL infusion, Continuous labetalol (NORMODYNE;TRANDATE) injection 10 mg, Q4H PRN vitamin B-1 (THIAMINE) tablet 100 mg, Daily spironolactone (ALDACTONE) tablet 50 mg, BID carvedilol (COREG) tablet 12.5 mg, BID WC lidocaine 1 % injection 5 mL, Once sodium chloride flush 0.9 % injection 10 mL, 2 times per day sodium chloride flush 0.9 % injection 10 mL, PRN insulin lispro (HUMALOG) injection vial 0-18 Units, TID WC insulin lispro (HUMALOG) injection vial 0-9 Units, Nightly amiodarone (CORDARONE) tablet 200 mg, BID potassium chloride 10 mEq/100 mL IVPB (Peripheral Line), Once famotidine (PEPCID) tablet 20 mg, Daily dexmedetomidine (PRECEDEX) 400 mcg in sodium chloride 0.9 % 100 mL infusion, Continuous sodium chloride flush 0.9 % injection 10 mL, 2 times per day sodium chloride flush 0.9 % injection 10 mL, PRN sodium chloride flush 0.9 % injection 10 mL, 2 times per day sodium chloride flush 0.9 % injection 10 mL, PRN calcium chloride 1 g in sodium chloride 0.9 % 100 mL IVPB, PRN magnesium sulfate 1 g in dextrose 5% 100 mL IVPB, PRN potassium chloride 20 mEq/50 mL IVPB (Central Line), PRN acetaminophen (TYLENOL) tablet 650 mg, Q4H PRN acetaminophen (TYLENOL) suppository 650 mg, Q4H PRN oxyCODONE-acetaminophen (PERCOCET) 5-325 MG per tablet 1 tablet, Q4H PRN Or oxyCODONE-acetaminophen (PERCOCET) 5-325 MG per tablet 2 tablet, Q4H PRN docusate sodium (COLACE) capsule 100 mg, BID polyethylene glycol (GLYCOLAX) packet 17 g, Daily bisacodyl (DULCOLAX) suppository 10 mg, Daily PRN ondansetron (ZOFRAN) injection 4 mg, Q8H PRN chlorhexidine (PERIDEX) 0.12 % solution 15 mL, BID therapeutic multivitamin-minerals 1 tablet, Daily with breakfast atorvastatin (LIPITOR) tablet 40 mg, Nightly clopidogrel (PLAVIX) tablet 75 mg, Daily albumin human 5 % IV solution 25 g, PRN insulin lispro (HUMALOG) injection vial 0-6 Units, Nightly glucose (GLUTOSE) 40 % oral gel 15 g, PRN dextrose 50 % IV solution, PRN glucagon (rDNA) injection 1 mg, PRN dextrose 5 % solution, PRN LABS CBC: Recent Labs 07/18/1943007/19/19 0413 07/20/19 0648 WBC 21.3* 19.4* 23.1* RBC 2.86* 2.89* 2.96* HGB 8.4* 8.3* 8.6* HCT 26.3* 26.6* 27.8* MCV 92.0 92.0 93.9 MCH 29.4 28.7 29.1 MCHC 31.9 31.2 30.9 RDW 15.9* 15.9* 16.2* PLT 246 244 370 MPV 10.6 10.5 10.2 BMP: Recent Labs 07/18/1943007/19/1941207/20/19 0648 NA 138 137 142 K 4.0 5.0 4.5 CL 97* 99 101 CO2 25 25 25 BUN 34* 44* 51* CREATININE 1.68* 1.67* 1.70* GLUCOSE 190* 252* 174* CALCIUM 8.8 8.7 8.7 PHOSPHORUS: Recent Labs 07/18/19 04307/20/19 0648 PHOS 4.8* 5.4* MAGNESIUM: Recent Labs 07/18/1943007/19/19 0413 07/20/19 0648 MG 2.3 2.5 2.8* TETO: Lab Results Component Value Date TETO NEGATIVE 07/05/2019 SPEP: Lab Results Component Value Date PROT 5.7 07/09/2019 ALBCAL 3.6 07/05/2019 ALBPCT 76 07/05/2019 LABALPH 0.2 07/05/2019 LABALPH 0.4 07/05/2019 A1PCT 4 07/05/2019 A2PCT 8 07/05/2019 LABBETA 0.3 07/05/2019 BETAPCT 6 07/05/2019 GAMGLOB 0.3 07/05/2019 GGPCT 6 07/05/2019 PATH ELECTRONICALLY SIGNED. LOKI FRANCISCO M.D. 07/05/2019 UPEP: Lab Results Component Value Date TPU 37 07/05/2019 HEPBSAG: Lab Results Component Value Date HEPBSAG NONREACTIVE 07/05/2019 HEPCAB: Lab Results Component Value Date HEPCAB NONREACTIVE 07/05/2019 C3: Lab Results Component Value Date C3 48 (L) 07/05/2019 C4: Lab Results Component Value Date C4 11 07/05/2019 URINE SODIUM: Lab Results Component Value Date GELACIO <20 07/05/2019 URINE CREATININE: Lab Results Component Value Date LABCREA 121.8 07/05/2019 URINE PROTEIN: Lab Results Component Value Date TPU 37 07/05/2019 URINALYSIS: U/A: Lab Results Component Value Date NITRU NEGATIVE 07/05/2019 COLORU YELLOW 07/05/2019 PHUR 5.0 07/05/2019 WBCUA 2 TO 5 07/05/2019 RBCUA 2 TO 5 07/05/2019 MUCUS NOT REPORTED 07/05/2019 TRICHOMONAS NOT REPORTED 07/05/2019 YEAST NOT REPORTED 07/05/2019 BACTERIA NOT REPORTED 07/05/2019 SPECGRAV 1.035 07/05/2019 LEUKOCYTESUR NEGATIVE 07/05/2019 UROBILINOGEN Normal 07/05/2019 BILIRUBINUR NEGATIVE 07/05/2019 GLUCOSEU NEGATIVE 07/05/2019 KETUA MODERATE 07/05/2019 AMORPHOUS NOT REPORTED 07/05/2019 ASSESSMENT 1. Acute kidney injury due to ischemic acute tubular necrosis, post CABG. Now creatinine is little above her baseline. Creatinine 1.6 this morning, diuretics were adjusted yesterday . 2. Chronic kidney disease stage III likely secondary to hypertensive diabetic disease. . Baseline creatinine seems to be around 1.2 to 1.4 mg/DL. 3. Respiratory failure : pt extubated yesterday . 4. DM2 5. HTN 6. Anemia 7. CVA Neurology following PLAN 1. Continue Bumex IV 1 mg every 12. 2. Continue Aldactone 2. Continue supportive care and swallow study this am. 3. Increase clonidine patch TTS #2 4. Following along Discussed with family Please do not hesitate to call with questions. * Titus Hyde MD - 07/20/2019 8:40 AM EST [facility] - Progress Note Today's Date and Time: 07/20/2019, 8:40 AM Impression : CAD s/p CABG and AVR S/p Redo CABG s/p graft dysfunction Hypovolemic shock - resolved Rt CVA Leukocytosis Encephalopathy Acute respiratory failure ARDS Recommendations: Leukocytosis is likely reactive Monitor off antibiotics D/C Unasyn D/C Ceftriaxone D/C cefepime Pulmonary toilet Monitor clinical progression Medical Decision Making/Summary/Discussion:07/20/2019 Patient with CAD and aortic stenosis S/P aortic valve replacement and CABG x 3 on 07-03-19 Re-operated because of bleeding from disruption of distal anastomosis of the RSVG to PLV Developed embolic Rt MCA infarct Developed respiratory failure requiring intubation. Lungs with pulmonary edema/ARDS picture Developed WBC elevation and low grade fever Evaluation not suggestive of overt infection but difficult to exclude early pulmonary infection. Will culture sputum and place on ceftriaxone MRSA screen negative. Chances of MRSA pneumonia are minimal. Sputum 07-15-19 with Gram negative bacilli .Switched to cefepime. Sputum culture suggests Gram negative bacilli are anaerobes. Switched to Unasyn. Dose adjusted for renal failure 07-20-19 Worsening Lt pleural effusion> Will D/C Unasyn Infection Control Recommendations [place] Precautions Antimicrobial Stewardship Recommendations Discontinuation of therapy Coordination of Outpatient Care: Estimated Length of IV antimicrobials: TBD Patient will need Midline Catheter Insertion: no Patient will need PICC line Insertion:no Patient will need: Home IV , Infusion Center, SNF, LTAC: Likely Patient will need outpatient wound care: TBD Chief complaint/reason for consultation: Low grade fever, trending WBC, erythema to Rt hand and Rt CVL site History of Present Illness: Eleanor Mcclain is a 68 y.o.-year-old female who was initially admitted on 07/03/2019. Patient seen at the request of Dr. Teresa INITIAL HISTORY: Pt has a history of aortic stenosis and mild to moderate mitral and tricuspid regurgitation. She developed a marked decline in her energy level, as well as increased SOB. Investigations showedthe presence of aortic stenosis and CAD. She presented on 07-03-19 for an elective CABG x 3 and aortic valve replacement. Post operatively pt developed hypotension and a significant increase in chest tube drainage (700 mlover 1 hour). She was urgently taken to the OR because of cardiac tamponade. The distal anastomosisof the RSVG to PLV had opened. The CABG was redone Pt required a total of 15 u blood products. Post operatively her chest was left open and she required vasopressor support. She was taken back to the OR on 07-04-19 for a sternal washout and closure. On 07-05 Sedation was discontinued, pt did not follow commands but was responsive to pain. She also developed an VIVIAN. Pt was extubated A CT brain was done 07-06-19 and showed possible subacute infarcts. On 07-[address] brain showed an evolving moderate Rt MCA infarct She continued to have altered mental status and intermittent periods of atrial fibrillation. On 07-07 she was started on Keppra for a possible seizure. 07-09 EEG showed disorganized and slow background suggesting moderate encephalopathy of non specificetiology. On 07-[address] showed stable appearance of Rt MCA infarct and redemonstration of multiple bilateral basal ganglia remote lacunar infarcts. She continued not following commands with intermittent periods agitation without purposeful movements. She then developed respiratory failure requiring bipap on 07-10. On 07-11 she pt developed respiratory arrest and CPR was initiated, She was successfully resuscitated and intubated. Pt then developed signs of ARDS with persistent hypoxia requiring high FiO2 concentration and ventilatory pressures. Suggest removal of cordis and Rt CVL due to skin excoriation and risk of infection OK to insert multi lumen PICC - Pt may require TPN CURRENT EXAMINATION: 07/20/2019 VS stable. Afebrile. Hemodynamically stable. No acute events overnight as per nurse WBC increased 8.4->22.4->19.2->21.3->19.4 ->23.1 EKG - no changes from previous EKG CXR 07-19-19 - now shows increasing size of left pleural effusion Pt extubated yesterday and put on 6L NC. Tolerated well. Now breathing at 2L NC and saturating at 95% Has worsening Lt pleural effusion. On Unasyn 1.5g IV Q12H Will D/C Unasyn to decrease fluid and Na load. Nods to questions, answer questions by nodding. Not verbal. Moves all extremities. Labs, X rays reviewed: 07/20/2019 BUN: 30->28->26->22->23->26->33->34->44->51 Cr: 1.17->1.26->1.34->1.68->1.67->1.70 WBC:22.4->19.4->19.2->21.3->19.4->23.1 Hb: 8.6->7.6->9->7.2->7->7.8->8.4->8.3->8.6 Plat: 305->263->219->218->216->246->244->370 Cultures: Urine: 07-03 no growth Blood: - 07-11: no growth - 07-16: no growth Sputum : 07-11 no growth to date 07-15 gram neg rods, mixed bacterial morphotypes on gram stain, yeast NOT silvio Wound: MRSA probe: negative CXR - 07-19 1. Increasing moderate-sized left pleural effusion. 2. Persistent left basilar and left perihilar consolidation or atelectasis. 3. Interval extubation. EKG 07-20-2019 Normal sinus rhythm Cannot rule out Inferior infarct (cited on or before 19-JUL-2019) Abnormal ECG When compared with ECG of 19-JUL-2019 06:28, T wave inversion no longer evident in Anterior leads Discussed with patient, RN, family.Dr Patten. I have personally reviewed the past medical history, past surgical history, medications, social history, and family history, and I have updated the database accordingly. Past Medical History: Past Medical History: Diagnosis Date Aortic stenosis - benitez Carrasco CAD (coronary artery disease) Chronic kidney disease CVA (cerebral vascular accident) ([facility]) 2011 no deficits Diabetes mellitus ([facility]) Dr. Richards Hyperlipidemia Hypertension Dr. Richards Kidney failure Wears dentures full upper plate, lower partial Wears prescription eyeglasses Wellness examination Dr. Richards seen in 03/2019 Past Surgical History: Past Surgical History: Procedure Laterality Date CABG WITH AORTIC VALVE REPLACEMENT N/A 07/03/2019 CABG CORONARY ARTERY BYPASS X3; AORTIC VALVE REPLACEMENT WITH 21MM INTUITY VALVE, ON PUMP, SWAN SHAWN, LOVE performed by Caro Teresa MD at [facility] [[email or web address]] CVOR CARDIAC CATHETERIZATION Bilateral 06/06/2019 Possible bypass & aortic valve replacement CHOLECYSTECTOMY COLONOSCOPY CORONARY ARTERY BYPASS GRAFT N/A 07/03/2019 CABG CORONARY ARTERY BYPASS REDO performed by Caro Teresa MD at [facility] [[email or web address]] CVOR GALLBLADDER SURGERY HC PICC POWERPICC DOUBLE 07/13/2019 HYSTERECTOMY STERNUM DEBRIDEMENT N/A 07/04/2019 STERNUM WASHOUT WITH STERNUM CLOSURE WITH STERNALOCK 360, 12 SELF-DRILLING LOCKING SCREWS 12MM, 4 SELFDRILLING LOCKING SCREWS 14MM. performed by Caro Teresa MD at [facility] [[email or web address]] CVOR Medications: amLODIPine 5 mg Oral Daily bumetanide 1 mg Intravenous BID dexamethasone 4 mg Intravenous Q6H QUEtiapine 25 mg Oral BID ampicillin-sulbactam 1.5 g Intravenous Q12H insulin glargine 20 Units Subcutaneous Nightly sodium chloride 20 mL Intravenous Once sodium chloride flush 10 mL Intravenous BID cloNIDine 1 patch Transdermal Weekly vitamin B-1 100 mg Oral Daily spironolactone 50 mg Oral BID carvedilol 12.5 mg Oral BID WC lidocaine 1 % injection 5 mL Intradermal Once sodium chloride flush 10 mL Intravenous 2 times per day insulin lispro 0-18 Units Subcutaneous TID WC insulin lispro 0-9 Units Subcutaneous Nightly amiodarone 200 mg Oral BID potassium chloride 40 mEq Intravenous Once famotidine 20 mg Oral Daily sodium chloride flush 10 mL Intravenous 2 times per day sodium chloride flush 10 mL Intravenous 2 times per day docusate sodium 100 mg Oral BID polyethylene glycol 17 g Oral Daily chlorhexidine 15 mL Mouth/Throat BID therapeutic multivitamin-minerals 1 tablet Oral Daily with breakfast atorvastatin 40 mg Oral Nightly clopidogrel 75 mg Oral Daily insulin lispro 0-6 Units Subcutaneous Nightly Social History: Social History Socioeconomic History Marital status: Spouse name: Not on file Number of children: Not on file Years of education: Not on file Highest education level: Not on file Occupational History Not on file Social Needs Financial resource strain: Not on file Food insecurity: Worry: Not on file Inability: Not on file Transportation needs: Medical: Not on file Non-medical: Not on file Tobacco Use Smoking status: Never Smoker Smokeless tobacco: Never Used Substance and Sexual Activity Alcohol use: Never Frequency: Never Drug use: Never Sexual activity: Never Lifestyle Physical activity: Days per week: Not on file Minutes per session: Not on file Stress: Not on file Relationships Social connections: Talks on phone: Not on file Gets together: Not on file Attends rastafarian service: Not on file Active member of club or organization: Not on file Attends meetings of clubs or organizations: Not on file Relationship status: Not on file Intimate partner violence: Fear of current or ex partner: Not on file Emotionally abused: Not on file Physically abused: Not on file Forced sexual activity: Not on file Other Topics Concern Not on file Social History Narrative Not on file Family History: Family History Problem Relation Age of Onset Stroke Mother Other Mother car accident Heart Disease Father Kidney Disease Brother Alcohol Abuse Brother Allergies: Latex Review of Systems: 07/20/2019 UTO pt intubated, no purposeful movement Physical Examination : Patient Vitals for the past 8 hrs: BP Temp Temp src Pulse Resp SpO2 Weight 07/20/19 0800 (!) 161/63 98.6 F (37 C) Oral 59 14 95 % 07/20/19 0700 (!) 168/68 98.6 F (37 C) Oral 69 11 93 % 07/20/19 0600 (!) 162/72 69 11 07/20/19 0542 182 lb 12.2 oz (82.9 kg) 07/20/19 0500 (!) 162/62 68 11 07/20/19 0400 (!) 144/85 97.7 F (36.5 C) Oral 66 11 94 % 07/20/19 0300 (!) 136/100 97.6 F (36.4 C) Axillary 68 13 07/20/19 0200 (!) 149/52 63 11 07/20/19 0107 (!) 169/61 07/20/19 0100 (!) 169/61 64 14 General Appearance: on vent, and in no apparent distress Head: Normocephalic, no trauma Eyes: Pupils equal, round, reactive to light; sclera anicteric; conjunctivae pink. No embolic phenomena. ENT: Oropharynx clear, without erythema, exudate, or thrush. No tenderness of sinuses. Mouth/throat: mucosa pink and moist. No lesions. Orally intubated. Neck:Supple, without lymphadenopathy. Thyroid normal, No bruits. Pulmonary/Chest: Coarse, distant sounds. No dullness to percussion. Cardiovascular: Regular rate and rhythm with murmur,no rubs, or gallops. Abdomen: Soft, non tender. Bowel sounds hypoactive. No organomegaly : fajardo with clear urine All four Extremities: No cyanosis, clubbing, mild generalized edema, no effusions. Neurologic: No purposeful movements Skin: Warm and dry with good turgor.Signs of peripheral arterial insufficiency. No ulcerations. No open wounds. Medical Decision Making -Laboratory: I have independently reviewed/ordered the following labs: CBC with Differential: Recent Labs 07/19/19 0413 07/20/19 0648 WBC 19.4* 23.1* HGB 8.3* 8.6* HCT 26.6* 27.8* PLT 244 370 BMP: Recent Labs 07/19/19 0413 07/20/19 0648 NA 137 142 K 5.0 4.5 CL 99 101 CO2 25 25 BUN 44* 51* CREATININE 1.67* 1.70* MG 2.5 2.8* Lab Results Component Value Date MUCUS NOT REPORTED 07/05/2019 RBC 2.96 07/20/2019 TRICHOMONAS NOT REPORTED 07/05/2019 WBC 23.1 07/20/2019 YEAST NOT REPORTED 07/05/2019 TURBIDITY CLEAR 07/05/2019 Lab Results Component Value Date CREATININE 1.70 07/20/2019 GLUCOSE 174 07/20/2019 Medical Decision Making-Imaging: CXR - 07/17/2019 1. Endotracheal tube remains in appropriate position. The enteric tube courses off the field of view in the upper abdomen. 2. Interval improved aeration of the lungs with findings of mild residual edema and left effusion. Brain and Cervical MRI- 07/16/2019 MRI brain: Slight decrease in conspicuity of multifocal recent infarcts. There is multifocal enhancement associated with the right posterior temporal occipital infarct compatible with subacute infarct. There is also a small amount of developing high T1 signal and decreased gradient echo signal suggesting petechial hemorrhagic staining. Multiple old infarcts Multifocal small-vessel ischemic change MRI cervical spine: Multilevel degenerative disc disease, greatest between C4 and C6-7. See above for details of each level. High signal in the rightward aspect of the cord at C3-4. This is age indeterminate and may be due to developing myelomalacia from cord compression below this level. Another consideration would be recent cord ischemic change. Other etiologies, to include neoplasm and transverse myelitis, for high signal in the cord are considered less likely at this time. Follow-up is recommended. EKG - Sinus bradycardia Nonspecific T wave abnormality Abnormal ECG When compared with ECG of 14-JUL-2019 00:09, Sinus rhythm has replaced Atrial fibrillation Vent. rate has decreased BY [address] no longer depressed in Anterior leads Nonspecific T wave abnormality has replaced inverted T waves in Anterolateral leads 07-13 CXR EXAMINATION: ONE XRAY VIEW OF THE CHEST 07/13/2019 5:43 am COMPARISON: July 12, 2019. HISTORY: ORDERING SYSTEM PROVIDED HISTORY: POST CABG TECHNOLOGIST PROVIDED HISTORY: POST CABG Reason for Exam: post cabg Acuity: Unknown Type of Exam: Unknown FINDINGS: Interval extubation. Feeding tube appears in unchanged position, with tip not visualized. Right subclavian central venous catheter appears in unchanged position. Right IJ central venous catheter sheath appears in unchanged position. Cardiac and mediastinal contours are enlarged but unchanged. Interval slight improvement in pulmonary interstitial edema. More focal pulmonary opacity within the left perihilar region appears reasonably similar to previous examination. Probable trace bilateral pleural effusion. No evidence of pneumothorax. No new osseous abnormalities. Impression 1. Interval improvement in pulmonary interstitial edema. Persistent left perihilar pulmonary opacity. Continued attention on follow-up examination is recommended. 2. Support hardware, as detailed above. CXR - 07/12/2019 Patchy airspace opacities bilaterally, may be related to pulmonary edema versus pneumonia, grossly stable. 07-11 CXR EXAMINATION: ONE XRAY VIEW OF THE CHEST 07/11/2019 9:53 am COMPARISON: 07/11/2019 HISTORY: ORDERING SYSTEM PROVIDED HISTORY: POST CABG TECHNOLOGIST PROVIDED HISTORY: POST CABG tube needs further adjustment pulled to 21 at lip Repositioning of endotracheal tube. FINDINGS: Interval repositioning of endotracheal tube which projects 3 cm from the janes. Enteric tube passes beneath the diaphragm. Right IJ sheath. Right subclavian line. Cardiomegaly. Prosthetic valve. Chest tubes. Small left effusion. No pneumothorax. Background edema. Impression Improved ET tube position now projecting 3.0 cm from the janes. Pulmonary edema. Small left effusion. EXAMINATION: ONE XRAY VIEW OF THE CHEST 07/19/2019 4:09 pm COMPARISON: Yesterday. HISTORY: ORDERING SYSTEM PROVIDED HISTORY: post extubation TECHNOLOGIST PROVIDED HISTORY: post extubation Reason for Exam: upr Acuity: Unknown Type of Exam: Unknown FINDINGS: Interval extubation. Moderate-sized left pleural effusion has increased. Left basilar and left perihilar consolidation remain. No pneumothorax. Stable cardiomegaly. Status post aortic valve repair. Left PICC with tip at the mid SVC. Impression 1. Increasing moderate-sized left pleural effusion. 2. Persistent left basilar and left perihilar consolidation or atelectasis. 3. Interval extubation. Medical Decision Jcovow-Plclwdcr-Vsqlc: 07/17/2019 10:16 AM - [place], [place] Incoming Lab Results From [email or web address] Specimen Information: Sputum, Suctioned Component Collected Lab Specimen Description 07/15/2019 11:48 AM [facility] .SUCTIONED SPUTUM Special Requests 07/15/2019 11:48 AM [facility] NOT REPORTED Direct Exam 07/15/2019 11:48 AM [facility] < 10 EPITHELIAL CELLS/LPF Direct Exam 07/15/2019 11:48 AM [facility] >25 NEUTROPHILS/LPF Direct Exam Abnormal 07/15/2019 11:48 AM [facility] PREDOMINANT ORGANISM: GRAM NEGATIVE RODS Direct Exam Abnormal 07/15/2019 11:48 AM [facility] MIXED BACTERIAL MORPHOTYPES ALSO PRESENT ON GRAM STAIN. Culture Abnormal 07/15/2019 11:48 AM [facility] YEAST, NOT SILVIO ALBICANS OR SILVIO DUBLINIENSIS HEAVY GROWTH Culture 07/15/2019 11:48 AM [facility] NORMAL RESPIRATORY ROSEANNA SCANT GOWTH 07/16/2019 8:17 AM - [place], [place] Incoming Lab Results From [email or web address] Specimen Information: Blood Component Collected Lab Specimen Description 07/15/2019 1:54 PM [facility] .BLOOD Special Requests 07/15/2019 1:54 PM [facility] L ARM 10 CC Culture 07/15/2019 1:54 PM [facility] NO GROWTH 17 HOURS 07/13/2019 1:00 PM - [place], [place] Incoming Lab Results From [employer] Specimen Information: Tracheal Aspirate Component Collected Lab Specimen Description 07/11/2019 4:58 PM [facility] .TRACHEAL ASPIRATE Special Requests 07/11/2019 4:58 PM [facility] NOT REPORTED Direct Exam 07/11/2019 4:58 PM [facility] >25 NEUTROPHILS/LPF Direct Exam 07/11/2019 4:58 PM [facility] < 10 EPITHELIAL CELLS/LPF Direct Exam 07/11/2019 4:58 PM [facility] NO SIGNIFICANT PATHOGENS SEEN Culture 07/11/2019 4:58 PM [facility] NORMAL RESPIRATORY ROSEANNA LIGHT GROWTH Medical Decision Making-Other: Note: Labs, medications, radiologic studies were reviewed with personal review of films Large amounts of data were reviewed Discussed with nursing Staff, shoe planner Infection Control and Prevention measures reviewed All prior entries were reviewed Administer medications as ordered Prognosis: Guarded Discharge planning reviewed Follow up as outpatient. Thank you for allowing us to participate in the care of this patient. Please call with questions. Brandin Santo ATTESTATION: I have discussed the case, including pertinent history and exam findings with the residents and students. I have seen and examined the patient and the mendoza elements of the encounter have been performed by me. I was present when the student obtained his information or examined the patient. I have reviewed the laboratory data, other diagnostic studies and discussed them with the residents. I have updated the medical record where necessary. I agree with the assessment, plan and orders as documented by the resident/ student. Titus Hyde MD. Pager: - Office: * Vasiliy Garcia, NURSING PROGRAM MANAGER - TROLLEY WORKER - 07/20/2019 7:45 AM EST [facility] Daily Progress Note Surgeon: Dr. Teresa S/P : Coronary artery bypassX3 AVR POD#: 16 EF: 51 % Subjective: Ms. Mcclain feels better today. She is currently extubated and on NC. She appears to not be in any distress, and answers simple commands and is giving small verbal commands. She is off all IV pumps and drips. From CTS perspective pt is stable. Physical Exam Vital Signs: BP (!) 174/72 Comment: attempting flexiflow Pulse 66 Temp 98.1 F (36.7 C) (Oral) Resp 18 Ht 5' 2 (1.575 m) Wt 182 lb 12.2 oz (82.9 kg) SpO2 95% BMI 33.43 kg/m O2 Flow Rate(L/min): 2 L/min Admit Weight: Weight: 144 lb 2.9 oz (65.4 kg) General: in no acute distress. Heart:Normal S1 and S2. Regular rhythm. No murmurs, gallops, or rubs. Pacing Wires No Lungs: clear to auscultation bilaterally and rhonchi bilaterally Abdomen: soft, non tender, non distended, BSx4 Extremities: non-pitting edema Wounds: clean and dry, healing appropriately. Neuro- she is answering questions to simple commands. Following simple commands. Protecting her airway. Opens eyes. Tracks appropriately. Scheduled Meds: cloNIDine 1 patch Transdermal Weekly amLODIPine 5 mg Oral Daily bumetanide 1 mg Intravenous BID QUEtiapine 25 mg Oral BID insulin glargine 20 Units Subcutaneous Nightly sodium chloride 20 mL Intravenous Once sodium chloride flush 10 mL Intravenous BID vitamin B-1 100 mg Oral Daily spironolactone 50 mg Oral BID carvedilol 12.5 mg Oral BID WC lidocaine 1 % injection 5 mL Intradermal Once sodium chloride flush 10 mL Intravenous 2 times per day insulin lispro 0-18 Units Subcutaneous TID WC insulin lispro 0-9 Units Subcutaneous Nightly amiodarone 200 mg Oral BID potassium chloride 40 mEq Intravenous Once famotidine 20 mg Oral Daily sodium chloride flush 10 mL Intravenous 2 times per day sodium chloride flush 10 mL Intravenous 2 times per day docusate sodium 100 mg Oral BID polyethylene glycol 17 g Oral Daily chlorhexidine 15 mL Mouth/Throat BID therapeutic multivitamin-minerals 1 tablet Oral Daily with breakfast atorvastatin 40 mg Oral Nightly clopidogrel 75 mg Oral Daily insulin lispro 0-6 Units Subcutaneous Nightly Continuous Infusions: heparin 25,000 units in 0.9% sodium chloride 250 mL infusion Stopped (07/20/19 0943) dextrose Data: CBC: Recent Labs 07/18/191 07/19/193 07/20/19 0648 WBC 21.3* 19.4* 23.1* HGB 8.4* 8.3* 8.6* HCT 26.3* 26.6* 27.8* MCV 92.0 92.0 93.9 PLT 246 244 370 BMP: Recent Labs 07/18/19 0431 07/19/193 07/20/19 0648 NA 138 137 142 K 4.0 5.0 4.5 CL 97* 99 101 CO2 25 25 25 PHOS 4.8* -- 5.4* BUN 34* 44* 51* CREATININE 1.68* 1.67* 1.70* PT/INR: Recent Labs 07/18/19 0431 07/19/19 0413 07/20/19 0648 PROTIME 11.3 11.1 11.7 INR 1.1 1.1 1.1 APTT: Recent Labs 07/19/19 1901 07/20/19 0132 07/20/19 0648 APTT 65.2* 68.2* 79.3* I/O: I/O last 3 completed shifts: In: 733.2 [I.V.:483.2; NG/GT:100; IV Piggyback:150] Out: 1900 [Urine:1900] Assessment & Plan: Patient Active Problem List Diagnosis CAD, multiple vessel Encephalopathy Acute cerebral infarction (HCC) Seizure (HCC) Encephalopathy, unspecified Ischemic stroke (HCC) Chronic a-fib Anticoagulated Acute postoperative respiratory failure (HCC) Cervical stenosis of spinal canal PLAN: Pt status changed from cardiac CCU to step down and internal medicine consult provided. Goal will to move patient out of Car 1 today and have another service preferably internal med. Takeover. Pt does not need to be in cardiac ICU Pt is stable from CTS perspective. The above recommendations including medications and orders were discussed and agreed upon with , the attending on service for the cardiothoracic surgery group today. VASILIY GARCIA APRN, COMMUNITY LIVING SPECIALIST * Wilder Rosales MD - 07/19/2019 4:44 PM EST Daily Progress Note Neuro Critical Care Patient Name: Eleanor Mcclain Patient : [id number] Room/Bed: 1006/1006-01 Code Status: Full Allergies: Allergies Allergen Reactions Latex Anaphylaxis Eyes swell shut, rash CHIEF COMPLAINT: Encephalopathy INTERVAL HISTORY Initial Presentation (Admitted 07/03/2019): 68-year-old female, PMH hypertension, hyperlipidemia, type 2 diabetes, CKD, CVA (2011), and aortic stenosis, who presented on 06/23 for scheduled CABG x3 and aortic valve replacement. Patient's postoperative course was complicated by cardiac tamponade and sutured chair. The patient's chest was left open and closed the next day in the OR. The patient has been intermittently in atrial fibrillation. Patient had a CT scan of her head on 07/06 because she was not following commands. CT head was significant for subacute infarct right posterior temporal lobe. Neurology was consulted on 07/07. The patient was noted to have seizure-like activity per set staff fitter. She was loaded with Keppra and started on Keppra twice daily. Repeat CT head on 07/08 showed right MCA. EEG showed no seizure activity. The patient was started on low-dose heparin by neurology for atrial fibrillation. CT head on 07/09 showed no changes. Patient was subsequently extubated but had to be reintubated on 07/11 due to hypoxia. Neuro critical care was consulted. Hospital Course: 07/11: Limited exam due to sedation/paralytic needed for ARDS protocol. MRI Brain ordered to evaluate for subcortical or brainstem infarction or any anoxic brain injury from near arrest post op. CT surgery amenable to removing pacing wires for MRI. 07/12: MRI Brain showed known acute to subacute infarct in the right temporal/occipital lobes, few scattered acute to subacute infarcts in the bilateral cerebral hemisphere and right cerebellar hemisphere. No significant acute infarction within left hemisphere. MRA Head/Neck revealed 80% focal stenos is left ICA, small caliber left MCA, occlusion left A1 MONSTER, 90% stenosis R POLICY SERVICE COORDINATOR. Results of imaging reviewed at length with family at bedside. Elevated TSH, normal free thyroxine 07/13: Thyroglobulin 10.7, Thyroglobulin antibody <20.0. LTME shwoed diffuse slowing, occasional central parietal rhythmic delta activity and right frontocentral sharp waves conferring increased risk for seizure. No evidence of subclinical seizure activity. 07/14: Largely unchanged examination. 07/15: Repeat Ammonia 41. Mild improvement in exam with more purposeful eye movements but still not tracking. ID changed Rocephin to Cefepime. 07/16: Awaiting MRI Brain W WO contrast, cervical spine. 07/17: MRI Brain W WO contrast re-demonstrated known infarctions. MRI Cervical spine showed multilevel degenerative disc disease most significant between C4 and C6-7, high signal C3-4 likely developing myelomalacia from cord compression; unlikely cord infarct in that location. Discussed results of MRI brain and cervical spine with family. No lesion on MRI to explain clinical exam and encephalopathy. Findings on cervical spine likely incidental. Will have Neurosurgery evaluate. Continue to see mild improvements in level of alertness and awareness. Last 24h: Last 24h: The patient was started on Decadron yesterday she was noted to not have a cuff leak. She is on Precedex 0.4 this morning. Patient was on a CPAP trial and tolerated it well this morning. Overall improvement in neurological exam. The patient is able to follow commands with her right upper and lower extremity. She withdraws to pain left upper and lower extremity. CURRENT MEDICATIONS: SCHEDULED MEDICATIONS: amLODIPine 5 mg Oral Daily bumetanide 1 mg Intravenous BID dexamethasone 4 mg Intravenous Q6H QUEtiapine 25 mg Oral BID ampicillin-sulbactam 1.5 g Intravenous Q12H insulin glargine 20 Units Subcutaneous Nightly sodium chloride 20 mL Intravenous Once sodium chloride flush 10 mL Intravenous BID cloNIDine 1 patch Transdermal Weekly vitamin B-1 100 mg Oral Daily spironolactone 50 mg Oral BID carvedilol 12.5 mg Oral BID WC lidocaine 1 % injection 5 mL Intradermal Once sodium chloride flush 10 mL Intravenous 2 times per day insulin lispro 0-18 Units Subcutaneous TID WC insulin lispro 0-9 Units Subcutaneous Nightly amiodarone 200 mg Oral BID potassium chloride 40 mEq Intravenous Once famotidine 20 mg Oral Daily sodium chloride flush 10 mL Intravenous 2 times per day sodium chloride flush 10 mL Intravenous 2 times per day docusate sodium 100 mg Oral BID polyethylene glycol 17 g Oral Daily chlorhexidine 15 mL Mouth/Throat BID therapeutic multivitamin-minerals 1 tablet Oral Daily with breakfast atorvastatin 40 mg Oral Nightly clopidogrel 75 mg Oral Daily insulin lispro 0-6 Units Subcutaneous Nightly CONTINUOUS INFUSIONS: heparin 25,000 units in 0.9% sodium chloride 250 mL infusion 18 Units/kg/hr (07/19/19 0528) dexmedetomidine (PRECEDEX) IV infusion Stopped (07/19/19 1417) dextrose PRN MEDICATIONS: hydrALAZINE, bumetanide, labetalol, sodium chloride flush, sodium chloride flush, sodium chloride flush, calcium chloride IVPB, magnesium sulfate, potassium chloride, acetaminophen, acetaminophen, oxyCODONE-acetaminophen OR oxyCODONE-acetaminophen, bisacodyl, ondansetron, albumin human, glucose, dextrose, glucagon (rDNA), dextrose VITALS: Temperature Range: Temp: 96.8 F (36 C) Temp Av.1 F (36.7 C) Min: 96.8 F (36 C) Max: 98.6 F (37C) BP Range: Systolic (24hrs), Av , Min:100 , Max:178 Diastolic (24hrs), Av, Min:41, Max:84 Pulse Range: Pulse Av.3 Min: 54 Max: 70 Respiration Range: Resp Av.8 Min: 0 Max: 23 Current Pulse Ox: SpO2: 92 % 24HR Pulse Ox Range: SpO2 Av.1 % Min: 83 % Max: 98 % Patient Vitals for the past 12 hrs: BP Temp Temp src Pulse Resp SpO2 Weight 07/19/19 1420 19 92 % 07/19/19 1411 64 15 94 % 07/19/19 1136 96.8 F (36 C) Axillary 58 14 94 % 07/19/19 0910 59 13 92 % 07/19/19 0830 66 19 94 % 07/19/19 0820 70 23 95 % 07/19/19 0815 68 22 95 % 07/19/19 0800 57 15 96 % 07/19/19 0745 62 22 96 % 07/19/19 0743 63 16 96 % 07/19/19 0730 62 22 95 % 07/19/19 0715 62 8 95 % 07/19/19 0700 63 (!) 0 95 % 07/19/19 0640 98.2 F (36.8 C) Axillary 07/19/19 0600 158 lb 4.6 oz (71.8 kg) 07/19/19 0546 61 18 94 % 07/19/19 0500 (!) 178/84 64 Estimated body mass index is 28.95 kg/m as calculated from the following: Height as of this encounter: 5' 2 (1.575 m). Weight as of this encounter: 158 lb 4.6 oz (71.8 kg). []<16 Severe malnutrition []16 16.99 Moderate malnutrition []17 18.49 Mild malnutrition []18.5 24.9 Normal []25 29.9 Overweight (not obese) []30 34.9 Obese class 1 (Low Risk) []35 39.9 Obese class 2 (Moderate Risk) []?40 Obese class 3 (High Risk) RECENT LABS: Lab Results Component Value Date WBC 19.4 (H) 07/19/2019 HGB 8.3 (L) 07/19/2019 HCT 26.6 (L) 07/19/2019 PLT 244 07/19/2019 CHOL 252 (H) 05/10/2019 TRIG 95 07/09/2019 HDL 113 05/10/2019 ALT 17 07/09/2019 AST 29 07/09/2019 NA 137 07/19/2019 K 5.0 07/19/2019 CL 99 07/19/2019 CREATININE 1.67 (H) 07/19/2019 BUN 44 (H) 07/19/2019 CO2 25 07/19/2019 TSH 4.27 07/15/2019 INR 1.1 07/19/2019 LABA1C 6.3 (H) 06/25/2019 24 HOUR INTAKE/OUTPUT: Intake/Output Summary (Last 24 hours) at 07/19/2019 1653 Last data filed at 07/19/2019 0800 Gross per 24 hour Intake 1862 ml Output 500 ml Net 1362 ml IMAGING: Place summary of recent imaging here. Labs and Images reviewed with: [] Dr. Wilder Rosales [] Dr. Landen Lua [] Dr. Alan Pedroza [] There are no new interval images to review. PHYSICAL EXAM CONSTITUTIONAL: Intubated, opens eyes to voice, nodding to questions HEAD: normocephalic, atraumatic EYES: PERRLA, EOMI. ENT: moist mucous membranes NECK: supple, symmetric LUNGS: Equal air entry bilaterally CARDIOVASCULAR: normal s1 / s2, RRR, distal pulses intact ABDOMEN: Soft, no rigidity NEUROLOGIC: Mental Status: Sedated but following some commands Cranial Nerves: cranial nerves II-XII are grossly intact Motor Exam: adequate hand recreational resort manager right hands, wiggles toes on right, withdraws to pain on LUE and LLE, able to flex LLE TOTAL: DRAINS: [] There are no drains for Neuro Critical Care to monitor at this time. ASSESSMENT AND PLAN: The patient is a 68 yo female with a history of HTN, HLD, DM 2, CKD, CVA (2011 with no residual deficits), CAD, and aortic stenosis, who was initially admitted on 07/03/19 after a scheduled CABGx3 andaortic valve replacement. Her course was complicated by significant hypotension and bleeding post operatively, taken back to OR and found to have tamponade secondary to ruptured suture which was repaired. Chest closure performed 07/04. Patient noted to have persistent encephalopathy post operatively. CTH showed right MCA territory infarction. -LTME negative for seizure like activity, CTH R MCA infarction likely cardioembolic -Patient is clinically improving, following commands -Continue to wean sedation, recommend seroquel for agitation -Vent management per primary team, patient following commands, possible window for extubation, patient has a cuff leak on exam today -Okay for anticoagulation from NICU standpoint -follow up neurosurgery recommendations for MRI cervical spine findings -Increasing Cr, nephrology consulted We will continue to follow along. For any changes in exam or patient status please contact Neuro Critical Care. Fina Cooper MD Neuro Critical Care Pager [phone] 07/19/2019 4:53 PM Neuro critical care: Improving encephalopathy and simple commands following each day. Opening eyes, nodding appropriately, squeezing hands, can take in deep TVs on command, good RSBI and good cuff leak. Steroids can be stopped. SBT trial continued. Patient extubated later this afternoon. We'll assess stroke deficits and neuro exam post extubation. Avoid any PRN fentanyl or Benzos. M Peewee Rosales MD * Janis Carnes RN - 07/19/2019 2:[address] Burger at bedside to assess pt, orders to extubate * Vasiliy Garcia APRN - [place] - 07/19/2019 1:47 PM EST [facility] Daily Progress Note Surgeon:Dr. Teresa S/P : Coronary artery bypassX3 AVR POD#: 15 EF: 51 % Subjective: Today patient remains intubated. She is able to follow simple commands, opens up her eyes with stimulation. Nods for answers. She is currently hemodynamically stable in normal sinus rhythm. She is diuresing greater than >40 mL an hour. She is able to move in bed. Currently patient is off fentanyl infusion to obtain a accurate neuro assessment. Blood pressure being controlled. Physical Exam Vital Signs: BP (!) 178/84 Pulse 58 Temp 96.8 F (36 C) (Axillary) Resp 14 Ht 5' 2 (1.575 m) Wt 158 lb 4.6 oz (71.8 kg) SpO2 94% BMI 28.95 kg/m O2 Flow Rate (L/min): 15 L/min Admit Weight: Weight: 144 lb 2.9 oz (65.4 kg) General: responsive to pain and stimuli. She is starting to follow small commands. She will open eyes to command. Squeeze hands. Give thumbs up. Wiggle toes. Move legs. Pt has not stuck out tongue yet. She does nod yes and no when asked questions Heart: A. Fib S1 and S2 No murmurs, Pacing Wires Yes Lungs: clear to auscultation bilaterally and rhonchi bilaterally mid lower lobes Abdomen: soft, non tender, non distended, BSx4 Extremities: non-pitting edema Wounds: clean and dry, healing appropriately. Scheduled Meds: amLODIPine 5 mg Oral Daily bumetanide 1 mg Intravenous BID dexamethasone 4 mg Intravenous Q6H QUEtiapine 25 mg Oral BID ampicillin-sulbactam 1.5 g Intravenous Q12H insulin glargine 20 Units Subcutaneous Nightly sodium chloride 20 mL Intravenous Once sodium chloride flush 10 mL Intravenous BID cloNIDine 1 patch Transdermal Weekly vitamin B-1 100 mg Oral Daily spironolactone 50 mg Oral BID carvedilol 12.5 mg Oral BID WC lidocaine 1 % injection 5 mL Intradermal Once sodium chloride flush 10 mL Intravenous 2 times per day insulin lispro 0-18 Units Subcutaneous TID WC insulin lispro 0-9 Units Subcutaneous Nightly amiodarone 200 mg Oral BID potassium chloride 40 mEq Intravenous Once famotidine 20 mg Oral Daily sodium chloride flush 10 mL Intravenous 2 times per day sodium chloride flush 10 mL Intravenous 2 times per day docusate sodium 100 mg Oral BID polyethylene glycol 17 g Oral Daily chlorhexidine 15 mL Mouth/Throat BID therapeutic multivitamin-minerals 1 tablet Oral Daily with breakfast atorvastatin 40 mg Oral Nightly clopidogrel 75 mg Oral Daily insulin lispro 0-6 Units Subcutaneous Nightly Continuous Infusions: heparin 25,000 units in 0.9% sodium chloride 250 mL infusion 18 Units/kg/hr (07/19/19 0528) dexmedetomidine (PRECEDEX) IV infusion 0.3 mcg/kg/hr (07/19/19 1201) dextrose Data: CBC: Recent Labs 07/17/1945507/18/1943007/19/19 0413 WBC 19.2* 21.3* 19.4* HGB 7.8* 8.4* 8.3* HCT 24.1* 26.3* 26.6* MCV 90.6 92.0 92.0 PLT 216 246 244 BMP: Recent Labs 07/17/1945507/18/1943007/19/19412 NA 137 138 137 K 4.1 4.0 5.0 CL 99 97* 99 CO2 PHOS -- 4.8* -- BUN 33* 34* 44* CREATININE 1.34* 1.68* 1.67* PT/INR: Recent Labs 07/17/1945507/18/1943007/19/19412 PROTIME 11.4 11.3 11.1 INR 1.1 1.1 1.1 APTT: Recent Labs 07/18/1943007/19/1941207/19/19 1145 APTT 54.1* 77.1* 60.0* I/O: I/O last 3 completed shifts: In: 1762 [I.V.:746; NG/GT:1016] Out: 1030 [Urine:1030] Assessment & Plan: Patient Active Problem List Diagnosis CAD, multiple vessel Encephalopathy Acute cerebral infarction (HCC) Seizure (HCC) Encephalopathy, unspecified Ischemic stroke (HCC) Chronic a-fib Anticoagulated Acute postoperative respiratory failure (HCC) PLAN: Continue with neuro exams to determine extubation. Pt has been getting the decadron 30mg Q6hrs to help with laryngeal edema. Pt is becoming a less likely candidate due to neuro improvement of obtaining a trach. We will continue to monitor patient. We will obtain chest xray tomorrow to determine pneumonia improvement. Continue antibiotics per ID for pneumonia. The above recommendations including medications and orders were discussed and agreed upon with Dr. Teresa, the attending on service for the cardiothoracic surgery group today. VASILIY GARCIA APRN, COMMUNITY LIVING SPECIALIST * Janusz Stein MD - 07/19/2019 11:07 AM EST Tyra Vice President Sales And Marketing Progress Note Date: 07/19/2019 Patient name: Eleanor Mcclain Date of admission: 07/03/2019 5:13 AM Date of : 1950 PCP: Grayson Hernandez MD Reason for Admission: CAD, multiple vessel [I25.10] Subjective: Patient seen and examined. Patient remains intubated and awake and following commands I/O last 3 completed shifts: In: 1762 [I.V.:746; NG/GT:1016] Out: 1030 [Urine:1030] I/O this shift: In: 100 [NG/GT:100] Out: 150 [Urine:150] In: 1862 [I.V.:746; NG/GT:1116] Out: 775 [Urine:775] Intake/Output Summary (Last 24 hours) at 07/19/2019 1107 Last data filed at 07/19/2019 0800 Gross per 24 hour Intake 1862 ml Output 910 ml Net 952 ml Medications: Scheduled Meds: amLODIPine 5 mg Oral Daily bumetanide 1 mg Intravenous BID dexamethasone 4 mg Intravenous Q6H QUEtiapine 25 mg Oral BID ampicillin-sulbactam 1.5 g Intravenous Q12H insulin glargine 20 Units Subcutaneous Nightly sodium chloride 20 mL Intravenous Once sodium chloride flush 10 mL Intravenous BID cloNIDine 1 patch Transdermal Weekly vitamin B-1 100 mg Oral Daily spironolactone 50 mg Oral BID carvedilol 12.5 mg Oral BID WC lidocaine 1 % injection 5 mL Intradermal Once sodium chloride flush 10 mL Intravenous 2 times per day insulin lispro 0-18 Units Subcutaneous TID WC insulin lispro 0-9 Units Subcutaneous Nightly amiodarone 200 mg Oral BID potassium chloride 40 mEq Intravenous Once famotidine 20 mg Oral Daily sodium chloride flush 10 mL Intravenous 2 times per day sodium chloride flush 10 mL Intravenous 2 times per day docusate sodium 100 mg Oral BID polyethylene glycol 17 g Oral Daily chlorhexidine 15 mL Mouth/Throat BID therapeutic multivitamin-minerals 1 tablet Oral Daily with breakfast atorvastatin 40 mg Oral Nightly clopidogrel 75 mg Oral Daily insulin lispro 0-6 Units Subcutaneous Nightly Continuous Infusions: heparin 25,000 units in 0.9% sodium chloride 250 mL infusion 18 Units/kg/hr (02/27/20 0528) dexmedetomidine (PRECEDEX) IV infusion 0.04 mcg/kg/hr (07/19/19 1030) dextrose CBC: Recent Labs 07/17/1945507/18/1943007/19/19412 WBC 19.2* 21.3* 19.4* HGB 7.8* 8.4* 8.3* PLT 216 246 244 BMP: Recent Labs 07/17/1945507/18/1943007/19/19412 NA 137 138 137 K 4.1 4.0 5.0 CL 99 97* 99 CO2 BUN 33* 34* 44* CREATININE 1.34* 1.68* 1.67* GLUCOSE 234* 190* 252* Hepatic: No results for input(s): AST, ALT, ALB, BILITOT, ALKPHOS in the last 72 hours. Troponin: No results for input(s): TROPONINI in the last 72 hours. No results for input(s): TROPONINT in the last 72 hours. BNP: No results for input(s): PROBNP in the last 72 hours. No results for input(s): BNP in the last 72 hours. Lipids: No results for input(s): CHOL, HDL in the last 72 hours. Invalid input(s): LDLCALCU INR: Recent Labs 07/17/1945507/18/1943007/19/19412 INR 1.1 1.1 1.1 Objective: Vitals: BP (!) 178/84 Pulse 59 Temp 98.2 F (36.8 C) (Axillary) Resp 13 Ht 5' 2 (1.575 m) Wt 158 lb 4.6 oz (71.8 kg) SpO2 92% BMI 28.95 kg/m General appearance: extubated HEENT: Head: Normocephalic, atraumatic without any obvious abnormalities. Lungs: Coarse breath sound b/l Heart: raza, no murmurs, mechanical click Abdomen: soft, nontender with bowel sounds present in all 4 quadrants. Extremities: Lower extremity edema is present + bilaterally. Peripheral pulses in b/l LE present Integumentum:Intact with no rashes noted. Diagnostic Studies: EKG: Normal sinus rhythm ECHO: 06/27/2019 Left ventricle is normal in size, increased septal wall thickness, global left ventricular systolic function is low normal, calculated ejection fraction is 51%. Evidence of moderate (grade II) diastolic dysfunction. Peak instantaneous gradient 58 mmHg and mean gradient 34 mmHg, suggesting moderate to severe aortic stenosis. Mild to moderate mitral stenosis ( calculated valve area of 3.73cm2 with a mean gradient of 6mmHg.) Mild mitral regurgitation. Cath 05/2019 - LAD: p LAD 70% stenosis - LCX - co-dominant, OM1: 70% stenosis - RCA- 50% PDA MRI brain/neck: 07/13 Known acute to subacute infarction in the right temporal lobe and lateral aspect of the right occipital lobe, stable in size since July 10, 2019. Associated local mass effect without midline shift. A few scattered tiny foci acute to subacute infarctions in the bilateral cerebral hemispheres and right cerebellar hemisphere, possibly embolic. Small old lacunar infarcts in the bilateral basal ganglia/periventricular white matter. 80% focal stenosis at the left ICA terminus. Asymmetrically small caliber of the M1 segment of left MCA. Occlusion of A1 segment of left MONSTER. 90% focal stenosis at the origin of the P2 segment of the right POLICY SERVICE COORDINATOR. Additional 80% focal stenosis along the P2 segments of the bilateral cable braider. 40% stenosis at the origins of the bilateral internal carotid arteries. MRI 07/16 Slight decrease in conspicuity of multifocal recent infarcts. There is multifocal enhancement associated with the right posterior temporal occipital infarct compatible with subacute infarct. There is also a small amount of developing high T1 signal and decreased gradient echo signal suggesting petechial hemorrhagic staining. Multiple old infarcts Multifocal small-vessel ischemic change MRI cervical spine: Multilevel degenerative disc disease, greatest between C4 and C6-7. See above for details of each level. High signal in the rightward aspect of the cord at C3-4. This is age indeterminate and may be due to developing myelomalacia from cord compression below this level. Another consideration would be recent cord ischemic change. Other etiologies, to include neoplasm and transverse myelitis, for high signal in the cord are considered less likely at this time. Follow-up is recommended. Assessment / Acute Cardiac Problems: 1. Severe and MVD - sp AVR 21MM INTUITY VALVE 07/03/2019 and CABG - CAMPBELL-LAD, SVG- OM2, SVG- PVL 2. Post-op bleeding with tamponade related to distal anastomosis site bleeding from SVG-PLV s/p repair 07/03/2019 and now s/p closure of chest wall 07/04/2019 3. Paroxysmal A. fib - episode 07/06 and 07/07 and 07/14 - now in sinus and on amiodarone 4. Resp failure - re-intubated 07/11/2019 5. Intra OP LOVE LV function of 45%, was 51% on pre op TTE 6. Possible seizure episode 07/07 7. Hypertensive urgency 8. DM-2 9. Post OP blood loss anemia (Hgb 7.0) -s/p one unit PRBC 07/16/2019 10. VIVIAN - nephrology following, stable 11. Paroxysmal afib 12. Thrombocytopenia - improving 13. Subacute CVA on CT - neurology following 14. Hypernatremia - improved Plan of Treatment: 1. On Plavix, Lipitor, Coreg 12.5 bid, Bumex 1 mg IV bid, Aldactone 50 bid. 2. Continue oral amiodarone 200 mg BID - 3. On heparin drip for A. Fib - can be transitioned to oral anticoagulation per neurology once no more procedures planned 4. Add amlodipine for high blood pressure 5. Encephalopathy improving - following commands 6. Diuresis per Nephrology 7. Repeat ECHO with LVEF 45%, aortic valve in position with no significant AI and mean gradient of 13 mm Hg, no pericardial effusion 8. Possible Seizures, EEG with encephalopathy with out evidence of seizures 9. Repeat MRI redomonstration of stroke with possible small amount of petechial hemorrhage with C spine changes as mentioned above - neurosurgery consulted for spine findings on MRI no intervention recommended 10. Vent management per Pulmonary 11. Post OP management per CT surgery Thank you for allowing us to participate in Eleanor Satnam Mcclain's care. Will follow with you. Electronically signed on 07/19/19 at 11:07 AM by: Nuha Coronel MD Fellow, Cardiovascular Diseases [facility] Attending Physician Statement I have discussed the care of the patient, including pertinent history and exam findings, with the resident. I have seen and examined the patient and the mendoza elements of all parts of the encounter have been performed by me. I agree with the assessment, plan and orders as documented by the resident. Pt extubated Will get A line out Janusz Stein MD * Nghia Jackson MD - 07/19/2019 10:01 AM EST Nephrology Progress Note SUBJECTIVE Pt was seen and examined. Following patient for VIVIAN from ischemic ATN. Patient came in for CABG and AVR which was complicated with postoperative cardiac tamponade and hypotension, had graft displacement as well. Required redo procedure and chest wash out post surgery. Right posterior temporal/occipital subacute infarct. + PAF Creatinine stable at 1.6 today, baseline creatinine is 1.2-1.4 She is on bumex IV bid currently, dose adjusted yesterday Neurology note was reviewed. She actually seems a little better neurologically, did squeeze hands on command this morning. Fajardo still in place. Hemodynamically stable. Patient currently receiving Aldactone and Bumex Patient is receiving tube feeds for nutrition, she is on heparin and Precedex IV drips OBJECTIVE CURRENT TEMPERATURE: Temp: 98.2 F (36.8 C) MAXIMUM TEMPERATURE OVER 24HRS: Temp (24hrs), Av.4 F (36.9 C), Min:98.1 F (36.7 C), Max:98.6 F (37 C) CURRENT RESPIRATORY RATE: Resp: 13 CURRENT PULSE: Pulse: 59 CURRENT BLOOD PRESSURE: BP: (!) 178/84 24HR BLOOD PRESSURE RANGE: Systolic (24hrs), Av , Min:100 , Max:178 ; Diastolic (24hrs), Av, Min:41, Max:84 24HR INTAKE/OUTPUT: Intake/Output Summary (Last 24 hours) at 07/19/2019 1001 Last data filed at 07/19/2019 0800 Gross per 24 hour Intake 1862 ml Output 960 ml Net 902 ml WEIGHT : Patient Vitals for the past 96 hrs (Last 3 readings): Weight 07/19/19 0600 158 lb 4.6 oz (71.8 kg) 07/18/19 0000 169 lb 15.6 oz (77.1 kg) 07/17/19 0200 174 lb 2.6 oz (79 kg) PHYSICAL EXAM General: Sedated and Intubated on the ventilator Neck: oral endotracheal tube in place Chest: Bilateral air entry and clear to auscultation with diminished breath sounds at the bases Cardiac: Regular rate and rhythm with positive S1 and S2 Abdomen: Obese and soft and mildly distended, sluggish bowel sounds Extremities: + lower extremity edema Neuro: She did squeeze hands on command today CURRENT MEDICATIONS bumetanide (BUMEX) injection 1 mg, BID dexamethasone (DECADRON) injection 4 mg, Q6H QUEtiapine (SEROQUEL) tablet 25 mg, BID ampicillin-sulbactam (UNASYN) 1.5 g IVPB minibag, Q12H insulin glargine (LANTUS) injection vial 20 Units, Nightly 0.9 % sodium chloride bolus, Once bumetanide (BUMEX) injection 2 mg, PRN sodium chloride flush 0.9 % injection 10 mL, BID heparin (porcine) 25,000 Units in sodium chloride 0.9 % 250 mL infusion, Continuous cloNIDine (CATAPRES) 0.1 MG/24HR 1 patch, Weekly labetalol (NORMODYNE;TRANDATE) injection 10 mg, Q4H PRN hydrALAZINE (APRESOLINE) injection 10 mg, Q4H PRN vitamin B-1 (THIAMINE) tablet 100 mg, Daily spironolactone (ALDACTONE) tablet 50 mg, BID carvedilol (COREG) tablet 12.5 mg, BID WC lidocaine 1 % injection 5 mL, Once sodium chloride flush 0.9 % injection 10 mL, 2 times per day sodium chloride flush 0.9 % injection 10 mL, PRN insulin lispro (HUMALOG) injection vial 0-18 Units, TID WC insulin lispro (HUMALOG) injection vial 0-9 Units, Nightly amiodarone (CORDARONE) tablet 200 mg, BID potassium chloride 10 mEq/100 mL IVPB (Peripheral Line), Once famotidine (PEPCID) tablet 20 mg, Daily dexmedetomidine (PRECEDEX) 400 mcg in sodium chloride 0.9 % 100 mL infusion, Continuous sodium chloride flush 0.9 % injection 10 mL, 2 times per day sodium chloride flush 0.9 % injection 10 mL, PRN sodium chloride flush 0.9 % injection 10 mL, 2 times per day sodium chloride flush 0.9 % injection 10 mL, PRN calcium chloride 1 g in sodium chloride 0.9 % 100 mL IVPB, PRN magnesium sulfate 1 g in dextrose 5% 100 mL IVPB, PRN potassium chloride 20 mEq/50 mL IVPB (Central Line), PRN acetaminophen (TYLENOL) tablet 650 mg, Q4H PRN acetaminophen (TYLENOL) suppository 650 mg, Q4H PRN oxyCODONE-acetaminophen (PERCOCET) 5-325 MG per tablet 1 tablet, Q4H PRN Or oxyCODONE-acetaminophen (PERCOCET) 5-325 MG per tablet 2 tablet, Q4H PRN docusate sodium (COLACE) capsule 100 mg, BID polyethylene glycol (GLYCOLAX) packet 17 g, Daily bisacodyl (DULCOLAX) suppository 10 mg, Daily PRN ondansetron (ZOFRAN) injection 4 mg, Q8H PRN chlorhexidine (PERIDEX) 0.12 % solution 15 mL, BID therapeutic multivitamin-minerals 1 tablet, Daily with breakfast atorvastatin (LIPITOR) tablet 40 mg, Nightly clopidogrel (PLAVIX) tablet 75 mg, Daily albumin human 5 % IV solution 25 g, PRN insulin lispro (HUMALOG) injection vial 0-6 Units, Nightly glucose (GLUTOSE) 40 % oral gel 15 g, PRN dextrose 50 % IV solution, PRN glucagon (rDNA) injection 1 mg, PRN dextrose 5 % solution, PRN LABS CBC: Recent Labs 07/17/1945507/18/1943007/19/19412 WBC 19.2* 21.3* 19.4* RBC 2.66* 2.86* 2.89* HGB 7.8* 8.4* 8.3* HCT 24.1* 26.3* 26.6* MCV 90.6 92.0 92.0 MCH 29.3 29.4 28.7 MCHC 32.4 31.9 31.2 RDW 15.4* 15.9* 15.9* PLT 216 246 244 MPV 10.5 10.6 10.5 BMP: Recent Labs 07/17/1945507/18/1943007/19/19412 NA 137 138 137 K 4.1 4.0 5.0 CL 99 97* 99 CO2 25 25 25 BUN 33* 34* 44* CREATININE 1.34* 1.68* 1.67* GLUCOSE 234* 190* 252* CALCIUM 8.5* 8.8 8.7 PHOSPHORUS: Recent Labs 07/18/19 0431 PHOS 4.8* MAGNESIUM: Recent Labs 07/17/19 0456 07/18/19 0431 07/19/19 0413 MG 2.1 2.3 2.5 TETO: Lab Results Component Value Date TETO NEGATIVE 07/05/2019 SPEP: Lab Results Component Value Date PROT 5.7 07/09/2019 ALBCAL 3.6 07/05/2019 ALBPCT 76 07/05/2019 LABALPH 0.2 07/05/2019 LABALPH 0.4 07/05/2019 A1PCT 4 07/05/2019 A2PCT 8 07/05/2019 LABBETA 0.3 07/05/2019 BETAPCT 6 07/05/2019 GAMGLOB 0.3 07/05/2019 GGPCT 6 07/05/2019 PATH ELECTRONICALLY SIGNED. LOKI FRANCISCO M.D. 07/05/2019 UPEP: Lab Results Component Value Date TPU 37 07/05/2019 HEPBSAG: Lab Results Component Value Date HEPBSAG NONREACTIVE 07/05/2019 HEPCAB: Lab Results Component Value Date HEPCAB NONREACTIVE 07/05/2019 C3: Lab Results Component Value Date C3 48 (L) 07/05/2019 C4: Lab Results Component Value Date C4 11 07/05/2019 URINE SODIUM: Lab Results Component Value Date GELACIO <20 07/05/2019 URINE CREATININE: Lab Results Component Value Date LABCREA 121.8 07/05/2019 URINE PROTEIN: Lab Results Component Value Date TPU 37 07/05/2019 URINALYSIS: U/A: Lab Results Component Value Date NITRU NEGATIVE 07/05/2019 COLORU YELLOW 07/05/2019 PHUR 5.0 07/05/2019 WBCUA 2 TO 5 07/05/2019 RBCUA 2 TO 5 07/05/2019 MUCUS NOT REPORTED 07/05/2019 TRICHOMONAS NOT REPORTED 07/05/2019 YEAST NOT REPORTED 07/05/2019 BACTERIA NOT REPORTED 07/05/2019 SPECGRAV 1.035 07/05/2019 LEUKOCYTESUR NEGATIVE 07/05/2019 UROBILINOGEN Normal 07/05/2019 BILIRUBINUR NEGATIVE 07/05/2019 GLUCOSEU NEGATIVE 07/05/2019 KETUA MODERATE 07/05/2019 AMORPHOUS NOT REPORTED 07/05/2019 ASSESSMENT 1. Acute kidney injury due to ischemic acute tubular necrosis, post CABG. Now creatinine is little above her baseline. Creatinine 1.6 this morning, diuretics were adjusted yesterday 2. Chronic kidney disease stage III likely secondary to hypertensive diabetic disease. . Baseline creatinine seems to be around 1.2 to 1.4 mg/DL. 3. Respiratory failure with the patient reintubated on 07/12/2019 with FiO2 of 40%. 4. DM2 5. HTN 6. Anemia 7. CVA Neurology following PLAN 1. Continue Bumex IV 1 mg every 12. 2. Continue Aldactone 2. Continue supportive care including tube feed and ventilatory support 3. Blood pressures are stable with clonidine patch. 4. Following along Discussed with family Please do not hesitate to call with questions. * Janis Carnes RN - 07/19/2019 9:54 AM EST OG advanced 5cm as suggested by Radiology. NG now at 58 - air bolus heard * Donovan Mena MD - 07/19/2019 9:39 AM EST Pulmonary critical care progress note. Date and time: 07/19/2019 9:39 AM Patient's name: Eleanor Mcclain Patient's account/billing number: [id number] Patient's Date of : 1950 Age: 68 y.o. Date of Admission: 07/03/2019 5:13 AM Length of stay during current admission: 16 Primary Care Physician: Grayson Hernandez MD Code Status: Full Code Reason for initial consultation: Acute hypoxic respiratory failure ARDS/acute pulmonary edema SUBJECTIVE: OVERNIGHT EVENTS: 07/19/2019 No acute issues overnight Afebrile Vitals stable Continues to be intubated- following commands per nursing Was on precedex 4 mcg this am Review of system: Not available from patient as patient is intubated on ventilator OBJECTIVE: VITAL SIGNS: BP (!) 178/84 Pulse 66 Temp 98.2 F (36.8 C) (Axillary) Resp 19 Ht 5' 2 (1.575 m) Wt 158 lb 4.6 oz (71.8 kg) SpO2 94% BMI 28.95 kg/m Tmax over 24 hours: Temp (24hrs), Av.2 F (36.8 C), Min:97.5 F (36.4 C), Max:98.6 F (37 C) Patient Vitals for the past 6 hrs: BP Temp Temp src Pulse Resp SpO2 Weight 07/19/19 0830 66 19 94 % 07/19/19 0820 70 23 95 % 07/19/19 0815 68 22 95 % 07/19/19 0800 57 15 96 % 07/19/19 0745 62 22 96 % 07/19/19 0743 63 16 96 % 07/19/19 0730 62 22 95 % 07/19/19 0715 62 8 95 % 07/19/19 0700 63 (!) 0 95 % 07/19/19 0640 98.2 F (36.8 C) Axillary 07/19/19 0600 158 lb 4.6 oz (71.8 kg) 07/19/19 0546 61 18 94 % 07/19/19 0500 (!) 178/84 64 07/19/19 0400 67 07/19/19 0345 57 23 95 % Intake/Output Summary (Last 24 hours) at 07/19/2019 0939 Last data filed at 07/19/2019 0800 Gross per 24 hour Intake 1862 ml Output 995 ml Net 867 ml Wt Readings from Last 2 Encounters: 07/19/19 158 lb 4.6 oz (71.8 kg) 06/25/19 147 lb (66.7 kg) Body mass index is 28.95 kg/m . PHYSICAL EXAMINATION: Head and neck atraumatic, normocephalic Lymph nodes-no cervical, supraclavicular lymphadenopathy Neck-no JVP elevation Lungs -relating all lobes decreased posterior base but clear anteriorly no rhonchi heard today CVS- S1, S2 regular. No S3 no S4, no murmurs Sternotomy Abdomen-nontender, nondistended. Bowel sounds are present. No organomegaly Lower extremity-no edema Upper extremity-no edema Neurological-eyes open is not thrashing around. She minimally squeezed my fingers but did not wiggle her toes or track Any additional physical findings: MEDICATIONS: Scheduled Meds: bumetanide 1 mg Intravenous BID dexamethasone 4 mg Intravenous Q6H QUEtiapine 25 mg Oral BID ampicillin-sulbactam 1.5 g Intravenous Q12H insulin glargine 20 Units Subcutaneous Nightly sodium chloride 20 mL Intravenous Once sodium chloride flush 10 mL Intravenous BID cloNIDine 1 patch Transdermal Weekly vitamin B-1 100 mg Oral Daily spironolactone 50 mg Oral BID carvedilol 12.5 mg Oral BID WC lidocaine 1 % injection 5 mL Intradermal Once sodium chloride flush 10 mL Intravenous 2 times per day insulin lispro 0-18 Units Subcutaneous TID WC insulin lispro 0-9 Units Subcutaneous Nightly amiodarone 200 mg Oral BID potassium chloride 40 mEq Intravenous Once famotidine 20 mg Oral Daily sodium chloride flush 10 mL Intravenous 2 times per day sodium chloride flush 10 mL Intravenous 2 times per day docusate sodium 100 mg Oral BID polyethylene glycol 17 g Oral Daily chlorhexidine 15 mL Mouth/Throat BID therapeutic multivitamin-minerals 1 tablet Oral Daily with breakfast atorvastatin 40 mg Oral Nightly clopidogrel 75 mg Oral Daily insulin lispro 0-6 Units Subcutaneous Nightly Continuous Infusions: heparin 25,000 units in 0.9% sodium chloride 250 mL infusion 18 Units/kg/hr (07/19/19 0528) dexmedetomidine (PRECEDEX) IV infusion 0.6 mcg/kg/hr (07/19/19 0835) dextrose PRN Meds: bumetanide, 2 mg, PRN labetalol, 10 mg, Q4H PRN hydrALAZINE, 10 mg, Q4H PRN sodium chloride flush, 10 mL, PRN sodium chloride flush, 10 mL, PRN sodium chloride flush, 10 mL, PRN calcium chloride IVPB, 1 g, PRN magnesium sulfate, 1 g, PRN potassium chloride, 20 mEq, PRN acetaminophen, 650 mg, Q4H PRN acetaminophen, 650 mg, Q4H PRN oxyCODONE-acetaminophen, 1 tablet, Q4H PRN Or oxyCODONE-acetaminophen, 2 tablet, Q4H PRN bisacodyl, 10 mg, Daily PRN ondansetron, 4 mg, Q8H PRN albumin human, 25 g, PRN glucose, 15 g, PRN dextrose, 12.5 g, PRN glucagon (rDNA), 1 mg, PRN dextrose, 100 mL/hr, PRN VENT SETTINGS (Comprehensive) (if applicable): Vent Information $Ventilation: $Subsequent Day Ventilator Started: Yes Ventilator Stopped: Yes Ventilation Day(s): 7 Skin Assessment: Clean, dry, & intact Equipment ID: [id number] Equipment Changed: Suction catheter Vent Type: Servo i Vent Mode: PRVC Vt Ordered: 400 mL Pressure Ordered: 8 Rate Set: 23 bmp Pressure Support: 10 cmH20 FiO2 : 40 % Sensitivity: 5 PEEP/CPAP: 5 I Time/ I Time %: 0.9 s Humidification Source: HME Nitric Oxide/Epoprostenol In Use?: No Additional Respiratory Assessments Pulse: 66 Resp: 19 SpO2: 94 % End Tidal CO2: 36 (%) Position: Semi-Newton's Humidification Source: HME Oral Care Completed?: Yes Oral Care: Mouthwash, Mouth suctioned, Suction toothette Subglottic Suction Done?: Yes ABG Lab Results Component Value Date [id number] 29 07/19/2019 FIO2 40.0 07/19/2019 Laboratory findings: Complete Blood Count: Recent Labs 07/17/19 0456 07/18/19 0431 07/19/19 0413 WBC 19.2* 21.3* 19.4* HGB 7.8* 8.4* 8.3* HCT 24.1* 26.3* 26.6* PLT 216 246 244 Last 3 Blood Glucose: Recent Labs 07/17/19 0456 07/18/19 0431 07/19/19 0413 GLUCOSE 234* 190* 252* PT/INR: Lab Results Component Value Date PROTIME 11.1 07/19/2019 INR 1.1 07/19/2019 PTT: Lab Results Component Value Date APTT 77.1 07/19/2019 Comprehensive Metabolic Profile: Recent Labs 07/17/19 0456 07/18/19 0431 07/19/19 0413 NA 137 138 137 K 4.1 4.0 5.0 CL 99 97* 99 CO2 25 25 25 BUN 33* 34* 44* CREATININE 1.34* 1.68* 1.67* GLUCOSE 234* 190* 252* CALCIUM 8.5* 8.8 8.7 Magnesium: Lab Results Component Value Date MG 2.5 07/19/2019 Phosphorus: Lab Results Component Value Date PHOS 4.8 07/18/2019 Ionized Calcium: Lab Results Component Value Date CAION 1.07 07/11/2019 Urinalysis: Troponin: No results for input(s): TROPONINI in the last 72 hours. Microbiology: Cultures during this admission: Blood cultures: [] None drawn [] Negative [] Positive (Details: ) Urine Culture: [] None drawn [] Negative [] Positive (Details: ) Sputum Culture: [] None drawn [] Negative [] Positive (Details: ) Endotracheal aspirate: [] None drawn [] Negative [] Positive (Details: ) Other pertinent Labs: Radiology/Imaging: Ct Head Wo Contrast Result Date: 07/10/2019 1. Stable appearance of right temporal lobe subacute infarct, as discussed above. 2. Redemonstration of multifocal bilateral basal ganglia remote lacunar infarcts. Mra Head Wo Contrast Result Date: 07/12/2019 Known acute to subacute infarction in the right temporal lobe and lateral aspect of the right occipital lobe, stable in size since July 10, 2019. Associated local mass effect without midline shift. A few scattered tiny foci acute to subacute infarctions in the bilateral cerebral hemispheres andright cerebellar hemisphere, possibly embolic. Small old lacunar infarcts in the bilateral basal ganglia/periventricular white matter. 80% focal stenosis at the left ICA terminus. Asymmetrically small caliber of the M1 segment of left MCA. Occlusion of A1 segment of left MONSTER. 90% focal stenosis at the origin of the P2 segment of the right POLICY SERVICE COORDINATOR. Additional 80% focal stenosis along the P2 segments of the bilateral cable braider. 40% stenosis at the origins of the bilateral internal carotid arteries. The results were sent to radiology results communication. Xr Chest Portable Result Date: 07/16/2019 Interval advancement of the enteric tube and the tip is not well seen. To be safe, retraction of the tube 1-1.5 cm may be useful to ensure it is separate from the carinal region. Slight worsening in multifocal airspace disease. The findings were sent to the Radiology Results Communication Center at6:46 am on 07/15/2019to be communicated to a licensed caregiver. Xr Chest Portable Result Date: 07/16/2019 X-ray not significantly changed Xr Chest Portable Result Date: 07/14/2019 *Endotracheal tube tip approximately 6 cm of the janes. *Interval increased interstitial prominence/vascular congestion with persistent left perihilar opacity and probable trace effusions. Xr Chest Portable Result Date: 07/13/2019 1. Interval improvement in pulmonary interstitial edema. Persistent left perihilar pulmonary opacity. Continued attention on follow-up examination is recommended. 2. Support hardware, as detailed above. Xr Chest Portable Result Date: 07/12/2019 Patchy airspace opacities bilaterally, may be related to pulmonary edema versus pneumonia, grossly stable. Stable mild cardiomegaly. Xr Chest Portable Result Date: 07/11/2019 Improved ET tube position now projecting 3.0 cm from the janes. Pulmonary edema. Small left effusion. Xr Chest Portable Result Date: 07/11/2019 Endotracheal tube placement with the tip suspected to be approximately 2 cm above the level of the janes. Increased left pleural effusion. Underlying pneumonia is not excluded. Xr Chest Portable Result Date: 07/11/2019 Endotracheal tube tip is still in the right mainstem bronchus and should be retracted approximately4-5 cm. Otherwise stable appearance of the chest. Xr Chest Portable Result Date: 07/10/2019 Persistent pulmonary edema. Mra Neck Wo Contrast Result Date: 07/12/2019 Known acute to subacute infarction in the right temporal lobe and lateral aspect of the right occipital lobe, stable in size since July 10, 2019. Associated local mass effect without midline shift. A few scattered tiny foci acute to subacute infarctions in the bilateral cerebral hemispheres andright cerebellar hemisphere, possibly embolic. Small old lacunar infarcts in the bilateral basal ganglia/periventricular white matter. 80% focal stenosis at the left ICA terminus. Asymmetrically small caliber of the M1 segment of left MCA. Occlusion of A1 segment of left MONSTER. 90% focal stenosis at the origin of the P2 segment of the right POLICY SERVICE COORDINATOR. Additional 80% focal stenosis along the P2 segments of the bilateral cable braider. 40% stenosis at the origins of the bilateral internal carotid arteries. The results were sent to radiology results communication. Mri Brain Wo Contrast Result Date: 07/12/2019 Known acute to subacute infarction in the right temporal lobe and lateral aspect of the right occipital lobe, stable in size since July 10, 2019. Associated local mass effect without midline shift. A few scattered tiny foci acute to subacute infarctions in the bilateral cerebral hemispheres andright cerebellar hemisphere, possibly embolic. Small old lacunar infarcts in the bilateral basal ganglia/periventricular white matter. 80% focal stenosis at the left ICA terminus. Asymmetrically small caliber of the M1 segment of left MCA. Occlusion of A1 segment of left MONSTER. 90% focal stenosis at the origin of the P2 segment of the right POLICY SERVICE COORDINATOR. Additional 80% focal stenosis along the P2 segments of the bilateral cable braider. 40% stenosis at the origins of the bilateral internal carotid arteries. The results were sent to radiology results communication. ASSESSMENT: 2. Acute hypoxemic respiratory failure requiring mechanical ventilation. 3. Status post AVR and CABG 07/03/2019. 4. Status post tamponade from distal anastomosis SVG-PLV site bleeding status post repair 07/03/2019. 5. Sternal closure 07/04/2019. 6. Acute right temporal /ischemic CVA Worsening pulmonary infiltrates, worsening leukocytosis, purulent secretion-Gram stain shows gram-negative rods gram-negative pneumonia pneumonia. 7. Possible seizure. 8. Acute encephalopathy secondary to above. 9. VIVIAN on CKD. 10. Postop atrial fibrillation.now rate cont 11. Hypertension. 12. Hyperlipidemia. 13. Diabetes mellitus. Type II with hyperglycemia Plan and recommendation: On Unasyn per ID Continue spontaneous breathing trial daily Continue to minimize sedatives Continue tube feeds diabetic Will hold onto tracheostomy as patient more responsive this ma Continue to wean off Precedex ADDENDUM Will extubate the patient Please note that this chart was generated using voice recognition [employer] dictation software. Although every effort was made to ensure the accuracy of this automated activity director, some errors in activity director may have occurred. Manpreet Treadwell M.D. Pulmonary and critical care attending [facility]) 07/19/2019, 9:39 AM Attending Physician Statement I have discussed the care of Eleanor Mcclain, including pertinent history and exam findings, withthe resident. I have seen and examined the patient and the mendoza elements of all parts of the encounter have been performed by me. I agree with the assessment, plan and orders as documented by the resident with additions . CC acute respiratory failure Clinically doing better. More awake and responsive on Precedex following commands hemodynamically stable gas exchange is good she is tolerating the weaning process well. Chest x-ray continues to showheart failure. We will continue the diuretics. As the patient is clinically much improved we will pr oceed with extubation. May need BiPAP postextubation. Discussed with nursing Dictated by Dr. Rajesh MORALES dictation over thank you Treatment plan Discussed with nursing staff in detail , all questions answered . time 35 minutes Please note that this chart was generated using voice recognition [employer] dictation software. Although every effort was made to ensure the accuracy of this automated activity director, some errors in activity director may have occurred. * Lita Mancini PTA - 07/19/2019 9:36 AM EST Physical Therapy DATE: 07/19/2019 NAME: Eleanor Mcclain : 1950 Discharge Recommendations: Continue to Assess (pending progress) Subjective: RN agreeable to ROM. Pain: No significant facial grimacing throughout; Patient follows: No Commands Is patient on ventilator: YES Is patient on sedation: YES Precautions: Cardiac; General Precautions; Surgical Protocols; Fall Risk Therapeutic exercises: UE/LE(s) Bilateral Passive range of motion all planes x 20 reps bilateral gastrocnemius stretching 3 reps x 30 seconds Bilateral FDS applied Goals Short Term Goals Short term goal 1: prevent contractures x 4 Short term goal 2: facilitate active movement x 4 once pt is no longer sedated Short term goal 3: mobilize pt and set goals when medically appropriate Plan: Progress functional mobility as medically appropriate. Time In: 915 Time Out: 936 Time Coded Minutes (treatment minutes): 21 Rehab Potential: Guarded Treatments/week: 4-5x/wk Lita Mancini PTA * Titus Hyde MD - 07/19/2019 8:45 AM EST [facility] - Progress Note Today's Date and Time: 07/19/2019, 8:45 AM Impression : CAD s/p CABG and AVR S/p Redo CABG s/p graft dysfunction Hypovolemic shock - resolved Rt CVA Leukocytosis Encephalopathy Acute respiratory failure ARDS Recommendations: Leukocytosis is likely reactive Unasyn 1.5 gm q 12 hr D/C Ceftriaxone D/C cefepime Pulmonary toilet Monitor clinical progression Medical Decision Making/Summary/Discussion:07/19/2019 Patient with CAD and aortic stenosis S/P aortic valve replacement and CABG x 3 on 2-11-20 Re-operated because of bleeding from disruption of distal anastomosis of the RSVG to PLV Developed embolic Rt MCA infarct Developed respiratory failure requiring intubation. Lungs with pulmonary edema/ARDS picture Developed WBC elevation and low grade fever Evaluation not suggestive of overt infection but difficult to exclude early pulmonary infection. Will culture sputum and place on ceftriaxone MRSA screen negative. Chances of MRSA pneumonia are minimal. Sputum 07-15-19 with Gram negative bacilli .Switched to cefepime. Sputum culture suggests Gram negative bacilli are anaerobes. Switched to Unasyn. Dose adjusted for renal failure Infection Control Recommendations [place] Precautions Antimicrobial Stewardship Recommendations Discontinuation of therapy Coordination of Outpatient Care: Estimated Length of IV antimicrobials: TBD Patient will need Midline Catheter Insertion: no Patient will need PICC line Insertion:no Patient will need: Home IV , Infusion Center, SNF, LTAC: Likely Patient will need outpatient wound care: TBD Chief complaint/reason for consultation: Low grade fever, trending WBC, erythema to Rt hand and Rt CVL site History of Present Illness: Eleanor Mcclain is a 68 y.o.-year-old female who was initially admitted on 07/03/2019. Patient seen at the request of Dr. Teresa INITIAL HISTORY: Pt has a history of aortic stenosis and mild to moderate mitral and tricuspid regurgitation. She developed a marked decline in her energy level, as well as increased SOB. Investigations showedthe presence of aortic stenosis and CAD. She presented on 07-03-19 for an elective CABG x 3 and aortic valve replacement. Post operatively pt developed hypotension and a significant increase in chest tube drainage (700 mlover 1 hour). She was urgently taken to the OR because of cardiac tamponade. The distal anastomosisof the RSVG to PLV had opened. The CABG was redone Pt required a total of 15 u blood products. Post operatively her chest was left open and she required vasopressor support. She was taken back to the OR on 07-04-19 for a sternal washout and closure. On 07-05 Sedation was discontinued, pt did not follow commands but was responsive to pain. She also developed an VIVIAN. Pt was extubated A CT brain was done 07-06-19 and showed possible subacute infarcts. On 07-[address] brain showed an evolving moderate Rt MCA infarct She continued to have altered mental status and intermittent periods of atrial fibrillation. On 07-07 she was started on Keppra for a possible seizure. 07-09 EEG showed disorganized and slow background suggesting moderate encephalopathy of non specificetiology. On 07-[address] showed stable appearance of Rt MCA infarct and redemonstration of multiple bilateral basal ganglia remote lacunar infarcts. She continued not following commands with intermittent periods agitation without purposeful movements. She then developed respiratory failure requiring bipap on 07-10. On 07-11 she pt developed respiratory arrest and CPR was initiated, She was successfully resuscitated and intubated. Pt then developed signs of ARDS with persistent hypoxia requiring high FiO2 concentration and ventilatory pressures. Suggest removal of cordis and Rt CVL due to skin excoriation and risk of infection OK to insert multi lumen PICC - Pt may require TPN CURRENT EXAMINATION: 07/19/2019 VS stable. Hypertensive. Afebrile. Hemodynamically stable. WBC variable 8.4->22.4->19.2->21.3->19.4 EKG - no changes from previous EKG CXR improving Unasyn 1.5g IV Q12H Instructed by Dr. Mena to leave trach for 1-2 days since pt more awake. Continuing spontaneous breathing trials then extubate if tolerates well. Able to follow simple commands such as squeezing fingers but not all commands - same findings with other physicians Labs, X rays reviewed: 07/19/2019 BUN: 30->28->26->22->23->26->33->34->44 Cr: 1.17->1.26->1.34->1.68->1.67 WBC:22.4->19.4->19.2->21.3->19.4 Hb: 8.6->7.6->9->7.2->7->7.8->8.4->8.3 Plat: 305->263->219->218->216->246->244 Vit B12: 1313 Cultures: Urine: - no growth Blood: - 07-11: no growth - 07-16: no growth Sputum : 07-11 no growth to date 07-15 gram neg rods, mixed bacterial morphotypes on gram stain, yeast NOT silvio Wound: MRSA probe: negative EKG 07-18-2019 Sinus bradycardia Nonspecific T wave abnormality Abnormal ECG When compared with ECG of 17-JUL-2019 06:28, No significant change was found Discussed with patient, RN, family.Dr Patten. I have personally reviewed the past medical history, past surgical history, medications, social history, and family history, and I have updated the database accordingly. Past Medical History: Past Medical History: Diagnosis Date Aortic stenosis - benitez Carrasco CAD (coronary artery disease) Chronic kidney disease CVA (cerebral vascular accident) ([facility]) 2011 no deficits Diabetes mellitus ([facility]) Dr. Richards Hyperlipidemia Hypertension Dr. Richards Kidney failure Wears dentures full upper plate, lower partial Wears prescription eyeglasses Wellness examination Dr. Richards seen in 03/2019 Past Surgical History: Past Surgical History: Procedure Laterality Date CABG WITH AORTIC VALVE REPLACEMENT N/A 07/03/2019 CABG CORONARY ARTERY BYPASS X3; AORTIC VALVE REPLACEMENT WITH 21MM INTUITY VALVE, ON PUMP, SWAN SHAWN, LOVE performed by Caro Teresa MD at [facility] [[email or web address]] CVOR CARDIAC CATHETERIZATION Bilateral 06/06/2019 Possible bypass & aortic valve replacement CHOLECYSTECTOMY COLONOSCOPY CORONARY ARTERY BYPASS GRAFT N/A 07/03/2019 CABG CORONARY ARTERY BYPASS REDO performed by Caro Teresa MD at [facility] [[email or web address]] CVOR GALLBLADDER SURGERY HC PICC POWERPICC DOUBLE 07/13/2019 HYSTERECTOMY STERNUM DEBRIDEMENT N/A 07/04/2019 STERNUM WASHOUT WITH STERNUM CLOSURE WITH STERNALOCK 360, 12 SELF-DRILLING LOCKING SCREWS 12MM, 4 SELFDRILLING LOCKING SCREWS 14MM. performed by Caro Teresa MD at [facility] [[email or web address]] CVSD Medications: bumetanide 1 mg Intravenous BID dexamethasone 4 mg Intravenous Q6H QUEtiapine 25 mg Oral BID ampicillin-sulbactam 1.5 g Intravenous Q12H insulin glargine 20 Units Subcutaneous Nightly sodium chloride 20 mL Intravenous Once sodium chloride flush 10 mL Intravenous BID cloNIDine 1 patch Transdermal Weekly vitamin B-1 100 mg Oral Daily spironolactone 50 mg Oral BID carvedilol 12.5 mg Oral BID WC lidocaine 1 % injection 5 mL Intradermal Once sodium chloride flush 10 mL Intravenous 2 times per day insulin lispro 0-18 Units Subcutaneous TID WC insulin lispro 0-9 Units Subcutaneous Nightly amiodarone 200 mg Oral BID potassium chloride 40 mEq Intravenous Once famotidine 20 mg Oral Daily sodium chloride flush 10 mL Intravenous 2 times per day sodium chloride flush 10 mL Intravenous 2 times per day docusate sodium 100 mg Oral BID polyethylene glycol 17 g Oral Daily chlorhexidine 15 mL Mouth/Throat BID therapeutic multivitamin-minerals 1 tablet Oral Daily with breakfast atorvastatin 40 mg Oral Nightly clopidogrel 75 mg Oral Daily insulin lispro 0-6 Units Subcutaneous Nightly Social History: Social History Socioeconomic History Marital status: Spouse name: Not on file Number of children: Not on file Years of education: Not on file Highest education level: Not on file Occupational History Not on file Social Needs Financial resource strain: Not on file Food insecurity: Worry: Not on file Inability: Not on file Transportation needs: Medical: Not on file Non-medical: Not on file Tobacco Use Smoking status: Never Smoker Smokeless tobacco: Never Used Substance and Sexual Activity Alcohol use: Never Frequency: Never Drug use: Never Sexual activity: Never Lifestyle Physical activity: Days per week: Not on file Minutes per session: Not on file Stress: Not on file Relationships Social connections: Talks on phone: Not on file Gets together: Not on file Attends rastafarian service: Not on file Active member of club or organization: Not on file Attends meetings of clubs or organizations: Not on file Relationship status: Not on file Intimate partner violence: Fear of current or ex partner: Not on file Emotionally abused: Not on file Physically abused: Not on file Forced sexual activity: Not on file Other Topics Concern Not on file Social History Narrative Not on file Family History: Family History Problem Relation Age of Onset Stroke Mother Other Mother car accident Heart Disease Father Kidney Disease Brother Alcohol Abuse Brother Allergies: Latex Review of Systems: 07/19/2019 UTO pt intubated, no purposeful movement Physical Examination : Patient Vitals for the past 8 hrs: BP Temp Temp src Pulse Resp SpO2 Weight 07/19/19 0830 66 19 94 % 07/19/19 0820 70 23 95 % 07/19/19 0815 68 22 95 % 07/19/19 0800 57 15 96 % 07/19/19 0745 62 22 96 % 07/19/19 0743 63 16 96 % 07/19/19 0730 62 22 95 % 07/19/19 0715 62 8 95 % 07/19/19 0700 63 (!) 0 95 % 07/19/19 0640 98.2 F (36.8 C) Axillary 07/19/19 0600 158 lb 4.6 oz (71.8 kg) 07/19/19 0546 61 18 94 % 07/19/19 0500 (!) 178/84 64 07/19/19 0400 67 07/19/19 0345 57 23 95 % 07/19/19 0320 (!) 130/49 98.5 F (36.9 C) Oral 58 22 96 % 07/19/19 0300 (!) 130/49 57 23 96 % 07/19/19 0200 (!) 134/56 56 22 97 % 07/19/19 0100 100/78 61 20 (!) 83 % General Appearance: on vent, and in no apparent distress Head: Normocephalic, no trauma Eyes: Pupils equal, round, reactive to light; sclera anicteric; conjunctivae pink. No embolic phenomena. ENT: Oropharynx clear, without erythema, exudate, or thrush. No tenderness of sinuses. Mouth/throat: mucosa pink and moist. No lesions. Orally intubated. Neck:Supple, without lymphadenopathy. Thyroid normal, No bruits. Pulmonary/Chest: Coarse, distant sounds. No dullness to percussion. Cardiovascular: Regular rate and rhythm with murmur,no rubs, or gallops. Abdomen: Soft, non tender. Bowel sounds hypoactive. No organomegaly : fajardo with clear urine All four Extremities: No cyanosis, clubbing, mild generalized edema, no effusions. Neurologic: No purposeful movements Skin: Warm and dry with good turgor.Signs of peripheral arterial insufficiency. No ulcerations. No open wounds. Medical Decision Making -Laboratory: I have independently reviewed/ordered the following labs: CBC with Differential: Recent Labs 07/18/1943007/19/19412 WBC 21.3* 19.4* HGB 8.4* 8.3* HCT 26.3* 26.6* PLT 246 244 BMP: Recent Labs 07/18/19 0431 07/19/19412 NA 138 137 K 4.0 5.0 CL 97* 99 CO2 25 25 BUN 34* 44* CREATININE 1.68* 1.67* MG 2.3 2.5 Lab Results Component Value Date MUCUS NOT REPORTED 07/05/2019 RBC 2.89 07/19/2019 TRICHOMONAS NOT REPORTED 07/05/2019 WBC 19.4 07/19/2019 YEAST NOT REPORTED 07/05/2019 TURBIDITY CLEAR 07/05/2019 Lab Results Component Value Date CREATININE 1.67 07/19/2019 GLUCOSE 252 07/19/2019 Medical Decision Making-Imaging: CXR - 07/17/2019 1. Endotracheal tube remains in appropriate position. The enteric tube courses off the field of view in the upper abdomen. 2. Interval improved aeration of the lungs with findings of mild residual edema and left effusion. Brain and Cervical MRI- 07/16/2019 MRI brain: Slight decrease in conspicuity of multifocal recent infarcts. There is multifocal enhancement associated with the right posterior temporal occipital infarct compatible with subacute infarct. There is also a small amount of developing high T1 signal and decreased gradient echo signal suggesting petechial hemorrhagic staining. Multiple old infarcts Multifocal small-vessel ischemic change MRI cervical spine: Multilevel degenerative disc disease, greatest between C4 and C6-7. See above for details of each level. High signal in the rightward aspect of the cord at C3-4. This is age indeterminate and may be due to developing myelomalacia from cord compression below this level. Another consideration would be recent cord ischemic change. Other etiologies, to include neoplasm and transverse myelitis, for high signal in the cord are considered less likely at this time. Follow-up is recommended. EKG - Sinus bradycardia Nonspecific T wave abnormality Abnormal ECG When compared with ECG of 14-JUL-2019 00:09, Sinus rhythm has replaced Atrial fibrillation Vent. rate has decreased BY [address] no longer depressed in Anterior leads Nonspecific T wave abnormality has replaced inverted T waves in Anterolateral leads 07-13 CXR EXAMINATION: ONE XRAY VIEW OF THE CHEST 07/13/2019 5:43 am COMPARISON: July 12, 2019. HISTORY: ORDERING SYSTEM PROVIDED HISTORY: POST CABG TECHNOLOGIST PROVIDED HISTORY: POST CABG Reason for Exam: post cabg Acuity: Unknown Type of Exam: Unknown FINDINGS: Interval extubation. Feeding tube appears in unchanged position, with tip not visualized. Right subclavian central venous catheter appears in unchanged position. Right IJ central venous catheter sheath appears in unchanged position. Cardiac and mediastinal contours are enlarged but unchanged. Interval slight improvement in pulmonary interstitial edema. More focal pulmonary opacity within the left perihilar region appears reasonably similar to previous examination. Probable trace bilateral pleural effusion. No evidence of pneumothorax. No new osseous abnormalities. Impression 1. Interval improvement in pulmonary interstitial edema. Persistent left perihilar pulmonary opacity. Continued attention on follow-up examination is recommended. 2. Support hardware, as detailed above. CXR - 07/12/2019 Patchy airspace opacities bilaterally, may be related to pulmonary edema versus pneumonia, grossly stable. 07-11 CXR EXAMINATION: ONE XRAY VIEW OF THE CHEST 07/11/2019 9:53 am COMPARISON: 07/11/2019 HISTORY: ORDERING SYSTEM PROVIDED HISTORY: POST CABG TECHNOLOGIST PROVIDED HISTORY: POST CABG tube needs further adjustment pulled to 21 at lip Repositioning of endotracheal tube. FINDINGS: Interval repositioning of endotracheal tube which projects 3 cm from the janes. Enteric tube passes beneath the diaphragm. Right IJ sheath. Right subclavian line. Cardiomegaly. Prosthetic valve. Chest tubes. Small left effusion. No pneumothorax. Background edema. Impression Improved ET tube position now projecting 3.0 cm from the janes. Pulmonary edema. Small left effusion. Medical Decision Iiblom-Qzbazeoj-Inqhz: 07/17/2019 10:16 AM - [place], jackie Incoming Lab Results From [email or web address] Specimen Information: Sputum, Suctioned Component Collected Lab Specimen Description 07/15/2019 11:48 AM [facility] .SUCTIONED SPUTUM Special Requests 07/15/2019 11:48 AM [facility] NOT REPORTED Direct Exam 07/15/2019 11:48 AM [facility] - [facility] < 10 EPITHELIAL CELLS/LPF Direct Exam 07/15/2019 11:48 AM [facility] - [facility] >25 NEUTROPHILS/LPF Direct Exam Abnormal 07/15/2019 11:48 AM [facility] - [facility] PREDOMINANT ORGANISM: GRAM NEGATIVE RODS Direct Exam Abnormal 07/15/2019 11:48 AM [facility] - [facility] MIXED BACTERIAL MORPHOTYPES ALSO PRESENT ON GRAM STAIN. Culture Abnormal 07/15/2019 11:48 AM [facility] YEAST, NOT SILVIO ALBICANS OR SILVIO DUBLINIENSIS HEAVY GROWTH Culture 07/15/2019 11:48 AM [facility] - [facility] NORMAL RESPIRATORY ROSEANNA SCANT GOWTH 07/16/2019 8:17 AM - [place], pn Incoming Lab Results From [email or web address] Specimen Information: Blood Component Collected Lab Specimen Description 07/15/2019 1:54 PM [facility] .BLOOD Special Requests 07/15/2019 1:54 PM [facility] - [facility] L ARM 10 CC Culture 07/15/2019 1:54 PM [facility] NO GROWTH 17 HOURS 07/13/2019 1:00 PM - Kip Briggs Incoming Lab Results From [email or web address] Specimen Information: Tracheal Aspirate Component Collected Lab Specimen Description 07/11/2019 4:58 PM [facility] - [facility] .TRACHEAL ASPIRATE Special Requests 07/11/2019 4:58 PM [facility] - [facility] NOT REPORTED Direct Exam 07/11/2019 4:58 PM [facility] >25 NEUTROPHILS/LPF Direct Exam 07/11/2019 4:58 PM [facility] < 10 EPITHELIAL CELLS/LPF Direct Exam 07/11/2019 4:58 PM [facility] NO SIGNIFICANT PATHOGENS SEEN Culture 07/11/2019 4:58 PM [facility] NORMAL RESPIRATORY ROSEANNA LIGHT GROWTH Medical Decision Making-Other: Note: Labs, medications, radiologic studies were reviewed with personal review of films Large amounts of data were reviewed Discussed with nursing Staff, shoe planner Infection Control and Prevention measures reviewed All prior entries were reviewed Administer medications as ordered Prognosis: Guarded Discharge planning reviewed Follow up as outpatient. Thank you for allowing us to participate in the care of this patient. Please call with questions. Brandin Santo ATTESTATION: I have discussed the case, including pertinent history and exam findings with the residents and students. I have seen and examined the patient and the mendoza elements of the encounter have been performed by me. I was present when the student obtained his information or examined the patient. I have reviewed the laboratory data, other diagnostic studies and discussed them with the residents. I have updated the medical record where necessary. I agree with the assessment, plan and orders as documented by the resident/ student. Titus Hyde MD. Pager: - Office: * Janis Carnes RN - 07/19/2019 8:00 AM EST OG tube at 53, charted at 75 per bilingual sales representative, air bolus heard, will have kub done to double check placement. Tube feed held for now * Donovan Mena MD - 07/18/2019 4:03 PM EST Pulmonary critical care progress note. Date and time: 07/18/2019 4:03 PM Patient's name: Eleanor Mcclain Patient's account/billing number: [id number] Patient's Date of : 1950 Age: 68 y.o. Date of Admission: 07/03/2019 5:13 AM Length of stay during current admission: 15 Primary Care Physician: Grayson Hernandez MD Code Status: Full Code Reason for initial consultation: Acute hypoxic respiratory failure ARDS/acute pulmonary edema SUBJECTIVE: OVERNIGHT EVENTS: 07/18/2019 No acute issues overnight Was following some commands this am Vitals stable afebrile FOLLOWING COMMANDS: [x] No [] Yes CURRENT VENTILATION STATUS: [x] Ventilator [] BIPAP [] Nasal Cannula [] Room Air IF INTUBATED, ET TUBE MARKING AT LOWER LIP: 21 cms SECRETIONS Amount: [] Small [x] Moderate [] Large [] None Color: [] White [x] Colored [] Bloody SEDATION: RAAS Score: [] Propofol gtt [] Versed gtt [] Ativan gtt [] No Sedation on Precedex PARALYZED: [x] No [] Yes DIARRHEA: [x] No [] Yes (C. Difficile status: [] positive [] negative [] pending) VASOPRESSORS: [x] No [] Yes If yes - [] Levophed [] Dopamine [] Vasopressin [] Dobutamine [] Phenylephrine [] Epinephrine CENTRAL LINES: [] No [x] Yes (Date of Insertion: ) Left pic If yes - [] Right IJ [] Left IJ [] Right Femoral [] Left Femoral [] Right Subclavian [] Left Subclavian FAJARDO'S CATHETER: [] No [x] Yes (Date of Insertion: ) URINE OUTPUT: [x] Good [] Low [] Anuric Review of system: Not available from patient as patient is intubated on ventilator OBJECTIVE: VITAL SIGNS: BP (!) 156/56 Pulse 60 Temp 98.1 F (36.7 C) (Axillary) Resp 15 Ht 5' 2 (1.575 m) Wt 169 lb 15.6 oz (77.1 kg) SpO2 94% BMI 31.09 kg/m Tmax over 24 hours: Temp (24hrs), Av F (36.7 C), Min:97.5 F (36.4 C), Max:98.6 F (37 C) Patient Vitals for the past 6 hrs: BP Temp Temp src Pulse Resp SpO2 07/18/19 1500 (!) 156/56 98.1 F (36.7 C) Axillary 60 15 94 % 07/18/19 1400 (!) 129/50 58 17 93 % 07/18/19 1300 (!) 111/42 54 15 94 % 07/18/19 1206 57 14 97 % 07/18/19 1200 (!) 127/42 57 12 97 % 07/18/19 1100 (!) 169/57 55 12 99 % 07/18/19 1043 (!) 48 15 95 % Intake/Output Summary (Last 24 hours) at 07/18/2019 1603 Last data filed at 07/18/2019 0600 Gross per 24 hour Intake 1776.7 ml Output 1100 ml Net 676.7 ml Wt Readings from Last 2 Encounters: 07/18/19 169 lb 15.6 oz (77.1 kg) 06/25/19 147 lb (66.7 kg) Body mass index is 31.09 kg/m . PHYSICAL EXAMINATION: Head and neck atraumatic, normocephalic Lymph nodes-no cervical, supraclavicular lymphadenopathy Neck-no JVP elevation Lungs -relating all lobes decreased posterior base but clear anteriorly no rhonchi heard today CVS- S1, S2 regular. No S3 no S4, no murmurs Sternotomy Abdomen-nontender, nondistended. Bowel sounds are present. No organomegaly Lower extremity-no edema Upper extremity-no edema Neurological-eyes open is not thrashing around. She minimally squeezed my fingers but did not wiggle her toes or track Any additional physical findings: MEDICATIONS: Scheduled Meds: bumetanide 1 mg Intravenous BID dexamethasone 4 mg Intravenous Q6H QUEtiapine 25 mg Oral BID [START ON 07/19/2019] ampicillin-sulbactam 1.5 g Intravenous Q12H insulin glargine 20 Units Subcutaneous Nightly sodium chloride 20 mL Intravenous Once sodium chloride flush 10 mL Intravenous BID cloNIDine 1 patch Transdermal Weekly vitamin B-1 100 mg Oral Daily spironolactone 50 mg Oral BID carvedilol 12.5 mg Oral BID lidocaine 1 % injection 5 mL Intradermal Once sodium chloride flush 10 mL Intravenous 2 times per day insulin lispro 0-18 Units Subcutaneous TID WC insulin lispro 0-9 Units Subcutaneous Nightly amiodarone 200 mg Oral BID potassium chloride 40 mEq Intravenous Once famotidine 20 mg Oral Daily sodium chloride flush 10 mL Intravenous 2 times per day sodium chloride flush 10 mL Intravenous 2 times per day docusate sodium 100 mg Oral BID polyethylene glycol 17 g Oral Daily chlorhexidine 15 mL Mouth/Throat BID therapeutic multivitamin-minerals 1 tablet Oral Daily with breakfast atorvastatin 40 mg Oral Nightly clopidogrel 75 mg Oral Daily insulin lispro 0-6 Units Subcutaneous Nightly Continuous Infusions: heparin 25,000 units in 0.9% sodium chloride 250 mL infusion 20 Units/kg/hr (07/18/19 0532) dexmedetomidine (PRECEDEX) IV infusion 0.3 mcg/kg/hr (07/18/19 1431) dextrose PRN Meds: bumetanide, 2 mg, PRN labetalol, 10 mg, Q4H PRN hydrALAZINE, 10 mg, Q4H PRN sodium chloride flush, 10 mL, PRN sodium chloride flush, 10 mL, PRN sodium chloride flush, 10 mL, PRN calcium chloride IVPB, 1 g, PRN magnesium sulfate, 1 g, PRN potassium chloride, 20 mEq, PRN acetaminophen, 650 mg, Q4H PRN acetaminophen, 650 mg, Q4H PRN oxyCODONE-acetaminophen, 1 tablet, Q4H PRN Or oxyCODONE-acetaminophen, 2 tablet, Q4H PRN bisacodyl, 10 mg, Daily PRN ondansetron, 4 mg, Q8H PRN albumin human, 25 g, PRN glucose, 15 g, PRN dextrose, 12.5 g, PRN glucagon (rDNA), 1 mg, PRN dextrose, 100 mL/hr, PRN VENT SETTINGS (Comprehensive) (if applicable): Vent Information $Ventilation: $Subsequent Day Ventilator Started: Yes Ventilator Stopped: Yes Ventilation Day(s): 7 Skin Assessment: Clean, dry, & intact Equipment ID: [id number] Equipment Changed: HME Vent Type: (P) Servo i Vent Mode: (P) PRVC Vt Ordered: 400 mL Pressure Ordered: 8 Rate Set: 23 bmp Pressure Support: 10 cmH20 FiO2 : 40 % Sensitivity: 5 PEEP/CPAP: 5 I Time/ I Time %: 0.8 s Humidification Source: HME Nitric Oxide/Epoprostenol In Use?: No Additional Respiratory Assessments Pulse: 60 Resp: 15 SpO2: 94 % End Tidal CO2: 24 (%) Position: Semi-Newton's Humidification Source: HME Oral Care Completed?: Yes Oral Care: Lip moisturizer applied, Mouth swabbed, Mouth suctioned, Mouth moisturizer Subglottic Suction Done?: Yes ABG Lab Results Component Value Date IIE0PQW 29 07/18/2019 FIO2 40.0 07/18/2019 Laboratory findings: Complete Blood Count: Recent Labs 07/16/19 0502 07/17/19 0456 07/18/19 0431 WBC 19.4* 19.2* 21.3* HGB 7.0* 7.8* 8.4* HCT 22.7* 24.1* 26.3* PLT 218 216 246 Last 3 Blood Glucose: Recent Labs 07/16/19 0502 07/17/19 0456 07/18/19 0431 GLUCOSE 259* 234* 190* PT/INR: Lab Results Component Value Date PROTIME 11.3 07/18/2019 INR 1.1 07/18/2019 PTT: Lab Results Component Value Date APTT 54.1 07/18/2019 Comprehensive Metabolic Profile: Recent Labs 07/16/19 0502 07/17/19 0456 07/18/19 0431 NA 139 137 138 K 3.9 4.1 4.0 CL 99 99 97* CO2 26 25 25 BUN 26* 33* 34* CREATININE 1.26* 1.34* 1.68* GLUCOSE 259* 234* 190* CALCIUM 8.4* 8.5* 8.8 Magnesium: Lab Results Component Value Date MG 2.3 07/18/2019 Phosphorus: Lab Results Component Value Date PHOS 4.8 07/18/2019 Ionized Calcium: Lab Results Component Value Date CAION 1.07 07/11/2019 Urinalysis: Troponin: No results for input(s): TROPONINI in the last 72 hours. Microbiology: Cultures during this admission: Blood cultures: [] None drawn [] Negative [] Positive (Details: ) Urine Culture: [] None drawn [] Negative [] Positive (Details: ) Sputum Culture: [] None drawn [] Negative [] Positive (Details: ) Endotracheal aspirate: [] None drawn [] Negative [] Positive (Details: ) Other pertinent Labs: Radiology/Imaging: Ct Head Wo Contrast Result Date: 07/10/2019 1. Stable appearance of right temporal lobe subacute infarct, as discussed above. 2. Redemonstration of multifocal bilateral basal ganglia remote lacunar infarcts. Mra Head Wo Contrast Result Date: 07/12/2019 Known acute to subacute infarction in the right temporal lobe and lateral aspect of the right occipital lobe, stable in size since July 10, 2019. Associated local mass effect without midline shift. A few scattered tiny foci acute to subacute infarctions in the bilateral cerebral hemispheres andright cerebellar hemisphere, possibly embolic. Small old lacunar infarcts in the bilateral basal ganglia/periventricular white matter. 80% focal stenosis at the left ICA terminus. Asymmetrically small caliber of the M1 segment of left MCA. Occlusion of A1 segment of left MONSTER. 90% focal stenosis at the origin of the P2 segment of the right POLICY SERVICE COORDINATOR. Additional 80% focal stenosis along the P2 segments of the bilateral cable braider. 40% stenosis at the origins of the bilateral internal carotid arteries. The results were sent to radiology results communication. Xr Chest Portable Result Date: 07/16/2019 Interval advancement of the enteric tube and the tip is not well seen. To be safe, retraction of the tube 1-1.5 cm may be useful to ensure it is separate from the carinal region. Slight worsening in multifocal airspace disease. The findings were sent to the Radiology Results Communication Center at6:46 am on 07/15/2019to be communicated to a licensed caregiver. Xr Chest Portable Result Date: 07/16/2019 X-ray not significantly changed Xr Chest Portable Result Date: 07/14/2019 *Endotracheal tube tip approximately 6 cm of the janes. *Interval increased interstitial prominence/vascular congestion with persistent left perihilar opacity and probable trace effusions. Xr Chest Portable Result Date: 07/13/2019 1. Interval improvement in pulmonary interstitial edema. Persistent left perihilar pulmonary opacity. Continued attention on follow-up examination is recommended. 2. Support hardware, as detailed above. Xr Chest Portable Result Date: 07/12/2019 Patchy airspace opacities bilaterally, may be related to pulmonary edema versus pneumonia, grossly stable. Stable mild cardiomegaly. Xr Chest Portable Result Date: 07/11/2019 Improved ET tube position now projecting 3.0 cm from the janes. Pulmonary edema. Small left effusion. Xr Chest Portable Result Date: 07/11/2019 Endotracheal tube placement with the tip suspected to be approximately 2 cm above the level of the janes. Increased left pleural effusion. Underlying pneumonia is not excluded. Xr Chest Portable Result Date: 07/11/2019 Endotracheal tube tip is still in the right mainstem bronchus and should be retracted approximately4-5 cm. Otherwise stable appearance of the chest. Xr Chest Portable Result Date: 07/10/2019 Persistent pulmonary edema. Mra Neck Wo Contrast Result Date: 07/12/2019 Known acute to subacute infarction in the right temporal lobe and lateral aspect of the right occipital lobe, stable in size since July 10, 2019. Associated local mass effect without midline shift. A few scattered tiny foci acute to subacute infarctions in the bilateral cerebral hemispheres andright cerebellar hemisphere, possibly embolic. Small old lacunar infarcts in the bilateral basal ganglia/periventricular white matter. 80% focal stenosis at the left ICA terminus. Asymmetrically small caliber of the M1 segment of left MCA. Occlusion of A1 segment of left MONSTER. 90% focal stenosis at the origin of the P2 segment of the right POLICY SERVICE COORDINATOR. Additional 80% focal stenosis along the P2 segments of the bilateral cable braider. 40% stenosis at the origins of the bilateral internal carotid arteries. The results were sent to radiology results communication. Mri Brain Wo Contrast Result Date: 07/12/2019 Known acute to subacute infarction in the right temporal lobe and lateral aspect of the right occipital lobe, stable in size since July 10, 2019. Associated local mass effect without midline shift. A few scattered tiny foci acute to subacute infarctions in the bilateral cerebral hemispheres andright cerebellar hemisphere, possibly embolic. Small old lacunar infarcts in the bilateral basal ganglia/periventricular white matter. 80% focal stenosis at the left ICA terminus. Asymmetrically small caliber of the M1 segment of left MCA. Occlusion of A1 segment of left MONSTER. 90% focal stenosis at the origin of the P2 segment of the right POLICY SERVICE COORDINATOR. Additional 80% focal stenosis along the P2 segments of the bilateral cable braider. 40% stenosis at the origins of the bilateral internal carotid arteries. The results were sent to radiology results communication. ASSESSMENT: 2. Acute hypoxemic respiratory failure requiring mechanical ventilation. 3. Status post AVR and CABG 07/03/2019. 4. Status post tamponade from distal anastomosis SVG-PLV site bleeding status post repair 07/03/2019. 5. Sternal closure 07/04/2019. 6. Acute right temporal /ischemic CVA Worsening pulmonary infiltrates, worsening leukocytosis, purulent secretion-Gram stain shows gram-negative rods gram-negative pneumonia pneumonia. 7. Possible seizure. 8. Acute encephalopathy secondary to above. 9. VIVIAN on CKD. 10. Postop atrial fibrillation.now rate cont 11. Hypertension. 12. Hyperlipidemia. 13. Diabetes mellitus. Type II with hyperglycemia Plan and recommendation: continue cefepime x-ray chest is improving. Patient is off Precedex, follows command minimally per nursing Encephalopathy persist Continue spontaneous breathing trial daily Continue to minimize sedatives No cuff leak today Continue tube feeds diabetic f her encephalopathy continues to improve and she tolerates spontaneous breathing trial then can extubate her . Discussed with nursing staff, treatment plan discussed. Discussed with respiratory therapist in detail. Discussed with family, Total critical care time caring for this patient with life threatening, unstable organ failure, including direct patient contact, management of life support systems, review of data including imaging and labs, discussions with other team members and physicians at least 30 Min so far today, excludingprocedures. Please note that this chart was generated using voice recognition [employer] dictation software. Although every effort was made to ensure the accuracy of this automated activity director, some errors in activity director may have occurred. Manpreet Treadwell M.D. Pulmonary and critical care attending [facility] [place]) 07/18/2019, 4:03 PM Attending Physician Statement I have discussed the care of Eleanor Mcclain, including pertinent history and exam findings, withthe resident. I have seen and examined the patient and the mendoza elements of all parts of the encounter have been performed by me. I agree with the assessment, plan and orders as documented by the resident with additions . Will continue diuresis.Discussed with family.Can hold back tracheostomy for a few more days. Treatment plan Discussed with nursing staff in detail , all questions answered . time 35 minutes Please note that this chart was generated using voice recognition IPGon dictation software. Although every effort was made to ensure the accuracy of this automated activity director, some errors in activity director may have occurred. * Alondra Vincent RN - 07/18/2019 12:[address] rosales (neuro) and Meseret MASSEY (neuro-crit care) and Diego MASSEY rounded on patient. Patient followedsome commands for neuro not all. Checked cuff leak and no cuff leak, want to start steroids and seroquel Diego TROLLEY WORKER will confirm with Dr. Teresa if ok. Neuro wants as little precedex as possible for patient. Will continue to monitor Alondra Vincent RN * Alondra Vincent RN - 07/18/2019 12:[address] stein rounded updated on vitals, labs and patient status. Orders to not start oral anticoagulation until decision for trach and peg. Will continue to monitor Alondra Vincent RN * Alondra Vincent RN - 07/18/2019 12:[address] Mena rounded updated on vitals, labs, and status. He wants to wait 1 or 2 days for trach since patient is waking up more. Will continue to monitor. Alondra Vincent RN * Sana Gonsalez RCP - 07/18/2019 12:05 PM EST 07/18/19 1043 Vent Information Vent Mode CPAP Pressure Support 10 cmH20 FiO2 40 % Sensitivity 5 PEEP/CPAP 5 Ventilator wean start * Lita Mancini PTA - 07/18/2019 11:18 AM EST Physical Therapy DATE: 07/18/2019 NAME: Eleanor Mcclain : 1950 Discharge Recommendations: Continue to Assess (pending progress) Subjective: RN agreeable to ROM. Pt Demo spontaneous eye opening intermittently, and demo spontaneous movement with QUIANA but unable to follow any commands Pain: No significant facial grimacing throughout; Patient follows: No Commands Is patient on ventilator: YES Is patient on sedation: YES Precautions: Cardiac; General Precautions; Surgical Protocols; Fall Risk Therapeutic exercises: UE/LE(s) Bilateral Passive range of motion all planes x 20 reps Pt demo resistance to Left knee flexion. bilateral gastrocnemius stretching 3 reps x 30 seconds Bilateral FDS applied Goals Short Term Goals Short term goal 1: prevent contractures x 4 Short term goal 2: facilitate active movement x 4 once pt is no longer sedated Short term goal 3: mobilize pt and set goals when medically appropriate Plan: Progress functional mobility as medically appropriate. Time In: 905 Time Out: 923 Time Coded Minutes (treatment minutes): 18 Rehab Potential: Good Treatments/week: 7x/wk Lita Mancini PTA * Titus Hyde MD - 07/18/2019 9:15 AM EST [facility] - Progress Note Today's Date and Time: 07/18/2019, 9:15 AM Impression : CAD s/p CABG and AVR S/p Redo CABG s/p graft dysfunction Hypovolemic shock - resolved Rt CVA Leukocytosis Encephalopathy Acute respiratory failure ARDS Recommendations: Leukocytosis is likely reactive Unasyn 1.5 gm q 12 hr D/C Ceftriaxone D/C cefepime Pulmonary toilet Monitor clinical progression Medical Decision Making/Summary/Discussion:07/18/2019 Patient with CAD and aortic stenosis S/P aortic valve replacement and CABG x 3 on 07-03-19 Re-operated because of bleeding from disruption of distal anastomosis of the RSVG to PLV Developed embolic Rt MCA infarct Developed respiratory failure requiring intubation. Lungs with pulmonary edema/ARDS picture Developed WBC elevation and low grade fever Evaluation not suggestive of overt infection but difficult to exclude early pulmonary infection. Will culture sputum and place on ceftriaxone MRSA screen negative. Chances of MRSA pneumonia are minimal. Sputum 07-15-19 with Gram negative bacilli .Switched to cefepime. Sputum culture suggests Gram negative bacilli are anaerobes. Switched to Unasyn. Dose adjusted for renal failure Infection Control Recommendations [place] Precautions Antimicrobial Stewardship Recommendations Discontinuation of therapy Coordination of Outpatient Care: Estimated Length of IV antimicrobials: TBD Patient will need Midline Catheter Insertion: no Patient will need PICC line Insertion:no Patient will need: Home IV , Infusion Center, SNF, LTAC: Likely Patient will need outpatient wound care: TBD Chief complaint/reason for consultation: Low grade fever, trending WBC, erythema to Rt hand and Rt CVL site History of Present Illness: Eleanor Mcclain is a 68 y.o.-year-old female who was initially admitted on 07/03/2019. Patient seen at the request of Dr. Teresa INITIAL HISTORY: Pt has a history of aortic stenosis and mild to moderate mitral and tricuspid regurgitation. She developed a marked decline in her energy level, as well as increased SOB. Investigations showedthe presence of aortic stenosis and CAD. She presented on 07-03-19 for an elective CABG x 3 and aortic valve replacement. Post operatively pt developed hypotension and a significant increase in chest tube drainage (700 mlover 1 hour). She was urgently taken to the OR because of cardiac tamponade. The distal anastomosisof the RSVG to PLV had opened. The CABG was redone Pt required a total of 15 u blood products. Post operatively her chest was left open and she required vasopressor support. She was taken back to the OR on 07-04-19 for a sternal washout and closure. On 07-05 Sedation was discontinued, pt did not follow commands but was responsive to pain. She also developed an VIVIAN. Pt was extubated A CT brain was done 07-06-19 and showed possible subacute infarcts. On 07-[address] brain showed an evolving moderate Rt MCA infarct She continued to have altered mental status and intermittent periods of atrial fibrillation. On 07-07 she was started on Keppra for a possible seizure. 07-09 EEG showed disorganized and slow background suggesting moderate encephalopathy of non specificetiology. On 07-[address] showed stable appearance of Rt MCA infarct and redemonstration of multiple bilateral basal ganglia remote lacunar infarcts. She continued not following commands with intermittent periods agitation without purposeful movements. She then developed respiratory failure requiring bipap on 07-10. On 2-19 she pt developed respiratory arrest and CPR was initiated, She was successfully resuscitated and intubated. Pt then developed signs of ARDS with persistent hypoxia requiring high FiO2 concentration and ventilatory pressures. Suggest removal of cordis and Rt CVL due to skin excoriation and risk of infection OK to insert multi lumen PICC - Pt may require TPN CURRENT EXAMINATION: 07/18/2019 VS stable. Hypertensive. Afebrile. Hemodynamically stable. WBC variable 8.4->22.4->19.4 ->19.2->21.3 Suctioned sputum cultures from 07-15-2019 POS for Yeast NOT Silvio albicans or C dublinensis, mixed bacteria on gram stain Chest X-ray done this morning - Pending Overall CXR show improvement as per Dr. Patten Pt seen and examined at bedside. She is intubated, on vent, weaned off Fentanyl Squeezed hand, gave thumbs up, able to follow simple commands Labs, X rays reviewed: 07/18/2019 BUN: 30->28->26->22->23->26->33->34 Cr: 1.09->1.20->1.36->1.16->1.17->1.26->1.34->1.68 WBC:11.2->14.3->15.5->8.4->13.9->18.9->22.4->19.4->19.2->21.3 Hb: 8.6->7.6->9->7.2->7->7.8->8.4 Plat: 305->263->219->218->216->246 Vit B12: 1313 Cultures: Urine: 07-03 no growth Blood: - 07-11: no growth - 07-16: no growth Sputum : 07-11 no growth to date 07-15 gram neg rods, mixed bacterial morphotypes on gram stain, yeast NOT silvio Wound: MRSA probe: negative EKG 07-18-2019 Sinus bradycardia Nonspecific T wave abnormality Abnormal ECG When compared with ECG of 17-JUL-2019 06:28, No significant change was found Discussed with patient, RN, family.Dr Patten. I have personally reviewed the past medical history, past surgical history, medications, social history, and family history, and I have updated the database accordingly. Past Medical History: Past Medical History: Diagnosis Date Aortic stenosis - in [place] CAD (coronary artery disease) Chronic kidney disease CVA (cerebral vascular accident) ([facility]) 2011 no deficits Diabetes mellitus ([facility]) Dr. Richards Hyperlipidemia Hypertension Dr. Richards Kidney failure Wears dentures full upper plate, lower partial Wears prescription eyeglasses Wellness examination Dr. Richards seen in 03/2019 Past Surgical History: Past Surgical History: Procedure Laterality Date CABG WITH AORTIC VALVE REPLACEMENT N/A 07/03/2019 CABG CORONARY ARTERY BYPASS X3; AORTIC VALVE REPLACEMENT WITH 21MM INTUITY VALVE, ON PUMP, SWAN SHAWN, LOVE performed by Caro Teresa MD at [facility] [[email or web address]] CVOR CARDIAC CATHETERIZATION Bilateral 06/06/2019 Possible bypass & aortic valve replacement CHOLECYSTECTOMY COLONOSCOPY CORONARY ARTERY BYPASS GRAFT N/A 07/03/2019 CABG CORONARY ARTERY BYPASS REDO performed by Caro Teresa MD at [facility] [[email or web address]] CVOR GALLBLADDER SURGERY HC PICC POWERPICC DOUBLE 07/13/2019 HYSTERECTOMY STERNUM DEBRIDEMENT N/A 07/04/2019 STERNUM WASHOUT WITH STERNUM CLOSURE WITH STERNALOCK 360, 12 SELF-DRILLING LOCKING SCREWS 12MM, 4 SELFDRILLING LOCKING SCREWS 14MM. performed by Caro Teresa MD at [facility] [[email or web address]] CVOR Medications: bumetanide 1 mg Intravenous BID insulin glargine 20 Units Subcutaneous Nightly ampicillin-sulbactam 1.5 g Intravenous Q6H sodium chloride 20 mL Intravenous Once sodium chloride flush 10 mL Intravenous BID cloNIDine 1 patch Transdermal Weekly vitamin B-1 100 mg Oral Daily spironolactone 50 mg Oral BID carvedilol 12.5 mg Oral BID WC lidocaine 1 % injection 5 mL Intradermal Once sodium chloride flush 10 mL Intravenous 2 times per day insulin lispro 0-18 Units Subcutaneous TID WC insulin lispro 0-9 Units Subcutaneous Nightly amiodarone 200 mg Oral BID potassium chloride 40 mEq Intravenous Once famotidine 20 mg Oral Daily sodium chloride flush 10 mL Intravenous 2 times per day sodium chloride flush 10 mL Intravenous 2 times per day docusate sodium 100 mg Oral BID polyethylene glycol 17 g Oral Daily chlorhexidine 15 mL Mouth/Throat BID therapeutic multivitamin-minerals 1 tablet Oral Daily with breakfast atorvastatin 40 mg Oral Nightly clopidogrel 75 mg Oral Daily insulin lispro 0-6 Units Subcutaneous Nightly Social History: Social History Socioeconomic History Marital status: Spouse name: Not on file Number of children: Not on file Years of education: Not on file Highest education level: Not on file Occupational History Not on file Social Needs Financial resource strain: Not on file Food insecurity: Worry: Not on file Inability: Not on file Transportation needs: Medical: Not on file Non-medical: Not on file Tobacco Use Smoking status: Never Smoker Smokeless tobacco: Never Used Substance and Sexual Activity Alcohol use: Never Frequency: Never Drug use: Never Sexual activity: Never Lifestyle Physical activity: Days per week: Not on file Minutes per session: Not on file Stress: Not on file Relationships Social connections: Talks on phone: Not on file Gets together: Not on file Attends rastafarian service: Not on file Active member of club or organization: Not on file Attends meetings of clubs or organizations: Not on file Relationship status: Not on file Intimate partner violence: Fear of current or ex partner: Not on file Emotionally abused: Not on file Physically abused: Not on file Forced sexual activity: Not on file Other Topics Concern Not on file Social History Narrative Not on file Family History: Family History Problem Relation Age of Onset Stroke Mother Other Mother car accident Heart Disease Father Kidney Disease Brother Alcohol Abuse Brother Allergies: Latex Review of Systems: 07/18/2019 UTO pt intubated, no purposeful movement Physical Examination : Patient Vitals for the past 8 hrs: BP Temp Temp src Pulse Resp SpO2 07/18/19 0800 (!) 174/62 57 21 99 % 07/18/19 0730 53 22 98 % 07/18/19 0700 (!) 160/61 52 22 97 % 07/18/19 0600 (!) 150/50 98.5 F (36.9 C) Axillary 52 23 97 % 07/18/19 0500 (!) 155/55 53 23 97 % 07/18/19 0400 (!) 151/47 56 23 97 % 07/18/19 0329 54 23 96 % 07/18/19 0312 (!) 154/51 98.6 F (37 C) Oral 55 23 97 % 07/18/19 0200 (!) 139/49 53 23 96 % General Appearance: on vent, and in no apparent distress Head: Normocephalic, no trauma Eyes: Pupils equal, round, reactive to light; sclera anicteric; conjunctivae pink. No embolic phenomena. ENT: Oropharynx clear, without erythema, exudate, or thrush. No tenderness of sinuses. Mouth/throat: mucosa pink and moist. No lesions. Orally intubated. Neck:Supple, without lymphadenopathy. Thyroid normal, No bruits. Pulmonary/Chest: Coarse, distant sounds. No dullness to percussion. Cardiovascular: Regular rate and rhythm with murmur,no rubs, or gallops. Abdomen: Soft, non tender. Bowel sounds hypoactive. No organomegaly : fajardo with clear urine All four Extremities: No cyanosis, clubbing, mild generalized edema, no effusions. Neurologic: No purposeful movements Skin: Warm and dry with good turgor.Signs of peripheral arterial insufficiency. No ulcerations. No open wounds. Medical Decision Making -Laboratory: I have independently reviewed/ordered the following labs: CBC with Differential: Recent Labs 07/17/19 0456 07/18/19 0431 WBC 19.2* 21.3* HGB 7.8* 8.4* HCT 24.1* 26.3* PLT 216 246 BMP: Recent Labs 07/17/19 0456 07/18/19 0431 NA 137 138 K 4.1 4.0 CL 99 97* CO2 25 25 BUN 33* 34* CREATININE 1.34* 1.68* MG 2.1 2.3 Lab Results Component Value Date MUCUS NOT REPORTED 07/05/2019 RBC 2.86 07/18/2019 TRICHOMONAS NOT REPORTED 07/05/2019 WBC 21.3 07/18/2019 YEAST NOT REPORTED 07/05/2019 TURBIDITY CLEAR 07/05/2019 Lab Results Component Value Date CREATININE 1.68 07/18/2019 GLUCOSE 190 07/18/2019 Medical Decision Making-Imaging: CXR - 07/17/2019 1. Endotracheal tube remains in appropriate position. The enteric tube courses off the field of view in the upper abdomen. 2. Interval improved aeration of the lungs with findings of mild residual edema and left effusion. Brain and Cervical MRI- 07/16/2019 MRI brain: Slight decrease in conspicuity of multifocal recent infarcts. There is multifocal enhancement associated with the right posterior temporal occipital infarct compatible with subacute infarct. There is also a small amount of developing high T1 signal and decreased gradient echo signal suggesting petechial hemorrhagic staining. Multiple old infarcts Multifocal small-vessel ischemic change MRI cervical spine: Multilevel degenerative disc disease, greatest between C4 and C6-7. See above for details of each level. High signal in the rightward aspect of the cord at C3-4. This is age indeterminate and may be due to developing myelomalacia from cord compression below this level. Another consideration would be recent cord ischemic change. Other etiologies, to include neoplasm and transverse myelitis, for high signal in the cord are considered less likely at this time. Follow-up is recommended. EKG - Sinus bradycardia Nonspecific T wave abnormality Abnormal ECG When compared with ECG of 14-JUL-2019 00:09, Sinus rhythm has replaced Atrial fibrillation Vent. rate has decreased BY [address] no longer depressed in Anterior leads Nonspecific T wave abnormality has replaced inverted T waves in Anterolateral leads 07-13 CXR EXAMINATION: ONE XRAY VIEW OF THE CHEST 07/13/2019 5:43 am COMPARISON: July 12, 2019. HISTORY: ORDERING SYSTEM PROVIDED HISTORY: POST CABG TECHNOLOGIST PROVIDED HISTORY: POST CABG Reason for Exam: post cabg Acuity: Unknown Type of Exam: Unknown FINDINGS: Interval extubation. Feeding tube appears in unchanged position, with tip not visualized. Right subclavian central venous catheter appears in unchanged position. Right IJ central venous catheter sheath appears in unchanged position. Cardiac and mediastinal contours are enlarged but unchanged. Interval slight improvement in pulmonary interstitial edema. More focal pulmonary opacity within the left perihilar region appears reasonably similar to previous examination. Probable trace bilateral pleural effusion. No evidence of pneumothorax. No new osseous abnormalities. Impression 1. Interval improvement in pulmonary interstitial edema. Persistent left perihilar pulmonary opacity. Continued attention on follow-up examination is recommended. 2. Support hardware, as detailed above. CXR - 07/12/2019 Patchy airspace opacities bilaterally, may be related to pulmonary edema versus pneumonia, grossly stable. 07-11 CXR EXAMINATION: ONE XRAY VIEW OF THE CHEST 07/11/2019 9:53 am COMPARISON: 07/11/2019 HISTORY: ORDERING SYSTEM PROVIDED HISTORY: POST CABG TECHNOLOGIST PROVIDED HISTORY: POST CABG tube needs further adjustment pulled to 21 at lip Repositioning of endotracheal tube. FINDINGS: Interval repositioning of endotracheal tube which projects 3 cm from the janes. Enteric tube passes beneath the diaphragm. Right IJ sheath. Right subclavian line. Cardiomegaly. Prosthetic valve. Chest tubes. Small left effusion. No pneumothorax. Background edema. Impression Improved ET tube position now projecting 3.0 cm from the janes. Pulmonary edema. Small left effusion. Medical Decision Nfkmiv-Egchwfew-Sxzbw: 07/17/2019 10:16 AM - [place], [place] Incoming Lab Results From [email or web address] Specimen Information: Sputum, Suctioned Component Collected Lab Specimen Description 07/15/2019 11:48 AM [facility] .SUCTIONED SPUTUM Special Requests 07/15/2019 11:48 AM [facility] NOT REPORTED Direct Exam 07/15/2019 11:48 AM [facility] < 10 EPITHELIAL CELLS/LPF Direct Exam 07/15/2019 11:48 AM [facility] >25 NEUTROPHILS/LPF Direct Exam Abnormal 07/15/2019 11:48 AM [facility] PREDOMINANT ORGANISM: GRAM NEGATIVE RODS Direct Exam Abnormal 07/15/2019 11:48 AM [facility] MIXED BACTERIAL MORPHOTYPES ALSO PRESENT ON GRAM STAIN. Culture Abnormal 07/15/2019 11:48 AM [facility] YEAST, NOT SILVIO ALBICANS OR SILVIO DUBLINIENSIS HEAVY GROWTH Culture 07/15/2019 11:48 AM [facility] NORMAL RESPIRATORY ROSEANNA SCANT GOWTH 07/16/2019 8:17 AM - [place] [place] Incoming Lab Results From [email or web address] Specimen Information: Blood Component Collected Lab Specimen Description 07/15/2019 1:54 PM [facility] .BLOOD Special Requests 07/15/2019 1:54 PM [facility] L ARM 10 CC Culture 07/15/2019 1:54 PM [facility] NO GROWTH 17 HOURS 07/13/2019 1:00 PM - [place], [place] Incoming Lab Results From [email or web address] Specimen Information: Tracheal Aspirate Component Collected Lab Specimen Description 07/11/2019 4:58 PM [facility] .TRACHEAL ASPIRATE Special Requests 07/11/2019 4:58 PM [facility] NOT REPORTED Direct Exam 07/11/2019 4:58 PM [facility] >25 NEUTROPHILS/LPF Direct Exam 07/11/2019 4:58 PM [facility] < 10 EPITHELIAL CELLS/LPF Direct Exam 07/11/2019 4:58 PM [facility] NO SIGNIFICANT PATHOGENS SEEN Culture 07/11/2019 4:58 PM [facility] NORMAL RESPIRATORY ROSEANNA LIGHT GROWTH Medical Decision Making-Other: Note: Labs, medications, radiologic studies were reviewed with personal review of films Large amounts of data were reviewed Discussed with nursing Staff, shoe planner Infection Control and Prevention measures reviewed All prior entries were reviewed Administer medications as ordered Prognosis: Guarded Discharge planning reviewed Follow up as outpatient. Thank you for allowing us to participate in the care of this patient. Please call with questions. Brandin Santo ATTESTATION: I have discussed the case, including pertinent history and exam findings with the residents and students. I have seen and examined the patient and the mendoza elements of the encounter have been performed by me. I was present when the student obtained his information or examined the patient. I have reviewed the laboratory data, other diagnostic studies and discussed them with the residents. I have updated the medical record where necessary. I agree with the assessment, plan and orders as documented by the resident/ student. Titus Hyde MD. Pager: - Office: * Nghia Jackson MD - 07/18/2019 9:06 AM EST Nephrology Progress Note SUBJECTIVE Pt was seen and examined. Following patient for VIVIAN from ischemic ATN. Patient came in for CABG and AVR which was complicated with postoperative cardiac tamponade and hypotension, had graft displacement as well. Required redo procedure and chest wash out post surgery. Right posterior temporal/occipital subacute infarct. + PAF Creatinine up to 1.6 today, baseline creatinine is 1.2-1.4 She is on bumex IV bid currently, dose will need to be adjusted Neurology note was reviewed Last 24-hour urine output was about [address] Hemodynamically stable. Patient currently receiving Aldactone and Bumex OBJECTIVE CURRENT TEMPERATURE: Temp: 98.5 F (36.9 C) MAXIMUM TEMPERATURE OVER 24HRS: Temp (24hrs), Av F (36.7 C), Min:97.5 F (36.4 C), Max:98.6 F (37 C) CURRENT RESPIRATORY RATE: Resp: 21 CURRENT PULSE: Pulse: 57 CURRENT BLOOD PRESSURE: BP: (!) 174/62 24HR BLOOD PRESSURE RANGE: Systolic (24hrs), Av , Min:118 , Max:174 ; Diastolic (24hrs), Av, Min:41, Max:62 24HR INTAKE/OUTPUT: Intake/Output Summary (Last 24 hours) at 07/18/2019 0907 Last data filed at 07/18/2019 0600 Gross per 24 hour Intake 1776.7 ml Output 2005 ml Net -228.3 ml WEIGHT : Patient Vitals for the past 96 hrs (Last 3 readings): Weight 07/18/19 0000 169 lb 15.6 oz (77.1 kg) 07/17/19 0200 174 lb 2.6 oz (79 kg) 07/16/19 0330 171 lb 11.8 oz (77.9 kg) PHYSICAL EXAM General: Sedated and Intubated on the ventilator Neck: oral endotracheal tube in place Chest: Bilateral air entry and clear to auscultation with diminished breath sounds at the bases Cardiac: Regular rate and rhythm with positive S1 and S2 Abdomen: Obese and soft and mildly distended, sluggish bowel sounds Extremities: trace lower extremity edema Neuro: Unresponsive , does not move Rt UE/LE CURRENT MEDICATIONS insulin glargine (LANTUS) injection vial 20 Units, Nightly ampicillin-sulbactam (UNASYN) 1.5 g IVPB minibag, Q6H 0.9 % sodium chloride bolus, Once bumetanide (BUMEX) injection 2 mg, PRN sodium chloride flush 0.9 % injection 10 mL, BID midazolam (VERSED) injection 2 mg, Q4H PRN heparin (porcine) 25,000 Units in sodium chloride 0.9 % 250 mL infusion, Continuous cloNIDine (CATAPRES) 0.1 MG/24HR 1 patch, Weekly labetalol (NORMODYNE;TRANDATE) injection 10 mg, Q4H PRN hydrALAZINE (APRESOLINE) injection 10 mg, Q4H PRN vitamin B-1 (THIAMINE) tablet 100 mg, Daily spironolactone (ALDACTONE) tablet 50 mg, BID carvedilol (COREG) tablet 12.5 mg, BID WC bumetanide (BUMEX) injection 3 mg, BID lidocaine 1 % injection 5 mL, Once sodium chloride flush 0.9 % injection 10 mL, 2 times per day sodium chloride flush 0.9 % injection 10 mL, PRN insulin lispro (HUMALOG) injection vial 0-18 Units, TID WC insulin lispro (HUMALOG) injection vial 0-9 Units, Nightly amiodarone (CORDARONE) tablet 200 mg, BID potassium chloride 10 mEq/100 mL IVPB (Peripheral Line), Once famotidine (PEPCID) tablet 20 mg, Daily dexmedetomidine (PRECEDEX) 400 mcg in sodium chloride 0.9 % 100 mL infusion, Continuous sodium chloride flush 0.9 % injection 10 mL, 2 times per day sodium chloride flush 0.9 % injection 10 mL, PRN sodium chloride flush 0.9 % injection 10 mL, 2 times per day sodium chloride flush 0.9 % injection 10 mL, PRN calcium chloride 1 g in sodium chloride 0.9 % 100 mL IVPB, PRN magnesium sulfate 1 g in dextrose 5% 100 mL IVPB, PRN potassium chloride 20 mEq/50 mL IVPB (Central Line), PRN acetaminophen (TYLENOL) tablet 650 mg, Q4H PRN acetaminophen (TYLENOL) suppository 650 mg, Q4H PRN oxyCODONE-acetaminophen (PERCOCET) 5-325 MG per tablet 1 tablet, Q4H PRN Or oxyCODONE-acetaminophen (PERCOCET) 5-325 MG per tablet 2 tablet, Q4H PRN docusate sodium (COLACE) capsule 100 mg, BID polyethylene glycol (GLYCOLAX) packet 17 g, Daily bisacodyl (DULCOLAX) suppository 10 mg, Daily PRN ondansetron (ZOFRAN) injection 4 mg, Q8H PRN chlorhexidine (PERIDEX) 0.12 % solution 15 mL, BID therapeutic multivitamin-minerals 1 tablet, Daily with breakfast atorvastatin (LIPITOR) tablet 40 mg, Nightly clopidogrel (PLAVIX) tablet 75 mg, Daily albumin human 5 % IV solution 25 g, PRN insulin lispro (HUMALOG) injection vial 0-6 Units, Nightly glucose (GLUTOSE) 40 % oral gel 15 g, PRN dextrose 50 % IV solution, PRN glucagon (rDNA) injection 1 mg, PRN dextrose 5 % solution, PRN LABS CBC: Recent Labs 07/16/19 0502 07/17/19 0456 07/18/19 0431 WBC 19.4* 19.2* 21.3* RBC 2.49* 2.66* 2.86* HGB 7.0* 7.8* 8.4* HCT 22.7* 24.1* 26.3* MCV 91.2 90.6 92.0 MCH 28.1 29.3 29.4 MCHC 30.8 32.4 31.9 RDW 14.9* 15.4* 15.9* PLT 218 216 246 MPV 10.1 10.5 10.6 BMP: Recent Labs 07/16/19 0502 07/17/19 0456 07/18/19 0431 NA 139 137 138 K 3.9 4.1 4.0 CL 99 99 97* CO2 26 25 25 BUN 26* 33* 34* CREATININE 1.26* 1.34* 1.68* GLUCOSE 259* 234* 190* CALCIUM 8.4* 8.5* 8.8 PHOSPHORUS: Recent Labs 07/16/19 0502 07/18/19 0431 PHOS 3.0 4.8* MAGNESIUM: Recent Labs 07/16/19 0502 07/17/19 0456 07/18/19 0431 MG 2.0 2.1 2.3 TETO: Lab Results Component Value Date TETO NEGATIVE 07/05/2019 SPEP: Lab Results Component Value Date PROT 5.7 07/09/2019 ALBCAL 3.6 07/05/2019 ALBPCT 76 07/05/2019 LABALPH 0.2 07/05/2019 LABALPH 0.4 07/05/2019 A1PCT 4 07/05/2019 A2PCT 8 07/05/2019 LABBETA 0.3 07/05/2019 BETAPCT 6 07/05/2019 GAMGLOB 0.3 07/05/2019 GGPCT 6 07/05/2019 PATH ELECTRONICALLY SIGNED. LOKI FRANCISCO M.D. 07/05/2019 UPEP: Lab Results Component Value Date TPU 37 07/05/2019 HEPBSAG: Lab Results Component Value Date HEPBSAG NONREACTIVE 07/05/2019 HEPCAB: Lab Results Component Value Date HEPCAB NONREACTIVE 07/05/2019 C3: Lab Results Component Value Date C3 48 (L) 07/05/2019 C4: Lab Results Component Value Date C4 11 07/05/2019 URINE SODIUM: Lab Results Component Value Date GELACIO <20 07/05/2019 URINE CREATININE: Lab Results Component Value Date LABCREA 121.8 07/05/2019 URINE EOSINOPHILS: No results found for: UREO URINE PROTEIN: Lab Results Component Value Date TPU 37 07/05/2019 URINALYSIS: U/A: Lab Results Component Value Date NITRU NEGATIVE 07/05/2019 COLORU YELLOW 07/05/2019 PHUR 5.0 07/05/2019 WBCUA 2 TO 5 07/05/2019 RBCUA 2 TO 5 07/05/2019 MUCUS NOT REPORTED 07/05/2019 TRICHOMONAS NOT REPORTED 07/05/2019 YEAST NOT REPORTED 07/05/2019 BACTERIA NOT REPORTED 07/05/2019 SPECGRAV 1.035 07/05/2019 LEUKOCYTESUR NEGATIVE 07/05/2019 UROBILINOGEN Normal 07/05/2019 BILIRUBINUR NEGATIVE 07/05/2019 GLUCOSEU NEGATIVE 07/05/2019 KETUA MODERATE 07/05/2019 AMORPHOUS NOT REPORTED 07/05/2019 ASSESSMENT 1. Acute kidney injury due to ischemic acute tubular necrosis, post CABG. Now creatinine is little above her baseline. Creatinine 1.6 this morning, question getting a touch prerenal 2. Chronic kidney disease stage III likely secondary to hypertensive diabetic disease. . Baseline creatinine seems to be around 1.2 to 1.4 mg/DL. 3. Respiratory failure with the patient reintubated on 07/12/2019 with FiO2 of 40%. 4. DM2 5. HTN 6. Anemia 7. CVA Neurology following PLAN 1. Change Bumex to IV 1 mg every 12. 2. Continue Aldactone 2. Continue supportive care including tube feed and ventilatory support 3. Blood pressures are stable with clonidine patch. 4. Following along Discussed with family Please do not hesitate to call with questions. * Alondra Vincent RN - 07/18/2019 9:[address] jackson rounded on patient updated on vitals and labs and status orders to decrease bumex to 1 mgBID. He said he would put in the order. Ok to give aldactone. Alondra Vincent RN * Meseret Arechiga, NURSING PROGRAM MANAGER - COMMUNITY LIVING SPECIALIST - 07/18/2019 8:33 AM EST Daily Progress Note Neuro Critical Care Patient Name: Eleanor Mcclain Patient : [id number] Room/Bed: [address] [place] [address] Code Status: FULL Allergies: Allergies Allergen Reactions Latex Anaphylaxis Eyes swell shut, rash CHIEF COMPLAINT: Encephalopathy INTERVAL HISTORY Initial Presentation (Admitted 07/03/19): The patient is a 68 y.o. female with a history of HTN, HLD, DM 2, CKD, CVA (2011 with no residual deficits), CAD, and aortic stenosis who was initially admitted on 06/23/19 after a scheduled CABGx3 andaortic valve replacement. Patient had been symptomatic with increased fatigue and increased shortness of breath for the past year. Patient acutely became hypotensive (SBP 40's per nursing) post operatively with significant increase in chest tube drainage. Taken back to OR where she was found to have tamponade due to suture tear. Chest left open and then closed the next day. She has been in and out of atrial fibrillation post operatively. On 07/[address] Head was obtained as patient was not following commands which showed evidence of subacute infarct in the right posterior temporal lobe. Neurology was consulted and evaluated patient on 07/07. That evening, she was noted to have brief episode of seizure like activity described as full body shaking by RN. Loaded with 1g Keppra and continued on 500mg BID per Neurology. Repeat CT Head 07/08 showed evolving moderate size right MCA territory infarction. EEG was obtained on 07/09 showing no seizure activity, moderate encephalopathy. Patient was started on low intensity heparin, no bolus by Neurology on 07/09 in the setting of paroxysmal afib. A repeat CT Head was obtained on 07/10 which did not show any evidence of hemorrhagic conversion. Patientwas extubated on 07/09 with no improvement in neurological exam. She was re-intubated on 07/11 in theearly morning due to severe hypoxia and started on ARDS protocol which included administration of Nimbex. Neuro Critical Care asked to evaluate for further recommendations. Hospital Course: 07/11: Limited exam due to sedation/paralytic needed for ARDS protocol. MRI Brain ordered to evaluate for subcortical or brainstem infarction or any anoxic brain injury from near arrest post op. CT surgery amenable to removing pacing wires for MRI. 07/12: MRI Brain showed known acute to subacute infarct in the right temporal/occipital lobes, few scattered acute to subacute infarcts in the bilateral cerebral hemisphere and right cerebellar hemisphere. No significant acute infarction within left hemisphere. MRA Head/Neck revealed 80% focal stenos is left ICA, small caliber left MCA, occlusion left A1 MONSTER, 90% stenosis R POLICY SERVICE COORDINATOR. Results of imaging reviewed at length with family at bedside. Elevated TSH, normal free thyroxine 07/13: Thyroglobulin 10.7, Thyroglobulin antibody <20.0. LTME shwoed diffuse slowing, occasional central parietal rhythmic delta activity and right frontocentral sharp waves conferring increased risk for seizure. No evidence of subclinical seizure activity. 07/14: Largely unchanged examination. 07/15: Repeat Ammonia 41. Mild improvement in exam with more purposeful eye movements but still not tracking. ID changed Rocephin to Cefepime. 07/16: Awaiting MRI Brain W WO contrast, cervical spine. 07/17: MRI Brain W WO contrast re-demonstrated known infarctions. MRI Cervical spine showed multilevel degenerative disc disease most significant between C4 and C6-7, high signal C3-4 likely developing myelomalacia from cord compression; unlikely cord infarct in that location. Discussed results of MRI brain and cervical spine with family. No lesion on MRI to explain clinical exam and encephalopathy. Findings on cervical spine likely incidental. Will have Neurosurgery evaluate. Continue to see mild improvements in level of alertness and awareness. Last 24h: No acute events overnight. Remains intubated and on Precedex infusion. Precedex infusion held for about 25 minutes prior to examination this afternoon. Further improvements noted in patient's clinical exam. Patient opening eyes to voice and tracking voice. She nodded yes to family members questionsand followed simple commands; thumbs up bilaterally, wiggles bilateral toes, flexes both legs at the knees. Would recommend that patient stay on lowest dose of Precedex possible, 0.2-0.3mcg/kg/min. Would suggest starting Seroquel 25mg QHS to help with agitation. Appears to be tolerating PS/CPAP ventilator weaning trials. Cuff leak absent. Recommend steroid course for suspected airway/laryngeal edema. Work towards extubation. CURRENT MEDICATIONS: SCHEDULED MEDICATIONS: insulin glargine 20 Units Subcutaneous Nightly ampicillin-sulbactam 1.5 g Intravenous Q6H sodium chloride 20 mL Intravenous Once sodium chloride flush 10 mL Intravenous BID cloNIDine 1 patch Transdermal Weekly vitamin B-1 100 mg Oral Daily spironolactone 50 mg Oral BID carvedilol 12.5 mg Oral BID WC bumetanide 3 mg Intravenous BID lidocaine 1 % injection 5 mL Intradermal Once sodium chloride flush 10 mL Intravenous 2 times per day insulin lispro 0-18 Units Subcutaneous TID WC insulin lispro 0-9 Units Subcutaneous Nightly amiodarone 200 mg Oral BID potassium chloride 40 mEq Intravenous Once famotidine 20 mg Oral Daily sodium chloride flush 10 mL Intravenous 2 times per day sodium chloride flush 10 mL Intravenous 2 times per day docusate sodium 100 mg Oral BID polyethylene glycol 17 g Oral Daily chlorhexidine 15 mL Mouth/Throat BID therapeutic multivitamin-minerals 1 tablet Oral Daily with breakfast atorvastatin 40 mg Oral Nightly clopidogrel 75 mg Oral Daily insulin lispro 0-6 Units Subcutaneous Nightly CONTINUOUS INFUSIONS: heparin 25,000 units in 0.9% sodium chloride 250 mL infusion 20 Units/kg/hr (07/18/19 0532) dexmedetomidine (PRECEDEX) IV infusion 0.5 mcg/kg/hr (07/18/19 0534) dextrose PRN MEDICATIONS: bumetanide, midazolam, labetalol, hydrALAZINE, sodium chloride flush, sodium chloride flush, sodiumchloride flush, calcium chloride IVPB, magnesium sulfate, potassium chloride, acetaminophen, acetaminophen, oxyCODONE-acetaminophen OR oxyCODONE-acetaminophen, bisacodyl, ondansetron, albumin human, glucose, dextrose, glucagon (rDNA), dextrose VITALS: Temperature Range: Temp: 98.5 F (36.9 C) Temp Av F (36.7 C) Min: 97.5 F (36.4 C) Max: 98.6 F (37 C) BP Range: Systolic (24hrs), Av , Min:118 , Max:155 Diastolic (24hrs), Av, Min:41, Max:57 Pulse Range: Pulse Av.9 Min: 52 Max: 63 Respiration Range: Resp Av.7 Min: 12 Max: 23 Current Pulse Ox: SpO2: 98 % 24HR Pulse Ox Range: SpO2 Av.7 % Min: 95 % Max: 98 % Patient Vitals for the past 12 hrs: BP Temp Temp src Pulse Resp SpO2 Weight 07/18/19 0730 53 22 98 % 07/18/19 0600 (!) 150/50 98.5 F (36.9 C) Axillary 52 23 97 % 07/18/19 0500 (!) 155/55 53 23 97 % 07/18/19 0400 (!) 151/47 56 23 97 % 07/18/19 0329 54 23 96 % 07/18/19 0312 (!) 154/51 98.6 F (37 C) Oral 55 23 97 % 07/18/19 0200 (!) 139/49 53 23 96 % 07/18/19 0100 (!) 130/48 54 23 95 % 07/18/19 0000 (!) 150/48 55 23 96 % 169 lb 15.6 oz (77.1 kg) 07/17/19 2329 58 22 97 % 07/17/19 2317 97.7 F (36.5 C) Axillary 55 23 97 % 07/17/19 2200 (!) 123/45 54 23 96 % 07/17/19 2100 (!) 125/47 56 23 97 % Estimated body mass index is 31.09 kg/m as calculated from the following: Height as of this encounter: 5' 2 (1.575 m). Weight as of this encounter: 169 lb 15.6 oz (77.1 kg). []<16 Severe malnutrition []16 16.99 Moderate malnutrition []17 18.49 Mild malnutrition []18.5 24.9 Normal []25 29.9 Overweight (not obese) [x]30 34.9 Obese class 1 (Low Risk) []35 39.9 Obese class 2 (Moderate Risk) []?40 Obese class 3 (High Risk) RECENT LABS: Lab Results Component Value Date WBC 21.3 (H) 07/18/2019 HGB 8.4 (L) 07/18/2019 HCT 26.3 (L) 07/18/2019 PLT 246 07/18/2019 CHOL 252 (H) 05/10/2019 TRIG 95 07/09/2019 HDL 113 05/10/2019 ALT 17 07/09/2019 AST 29 07/09/2019 NA 138 07/18/2019 K 4.0 07/18/2019 CL 97 (L) 07/18/2019 CREATININE 1.68 (H) 07/18/2019 BUN 34 (H) 07/18/2019 CO2 25 07/18/2019 TSH 4.27 07/15/2019 INR 1.1 07/18/2019 LABA1C 6.3 (H) 06/25/2019 24 HOUR INTAKE/OUTPUT: Intake/Output Summary (Last 24 hours) at 07/18/2019 0833 Last data filed at 07/18/2019 0600 Gross per 24 hour Intake 1776.7 ml Output 2055 ml Net -278.3 ml IMAGING: Mra Head Wo Contrast Result Date: 07/12/2019 Known acute to subacute infarction in the right temporal lobe and lateral aspect of the right occipital lobe, stable in size since July 10, 2019. Associated local mass effect without midline shift. A few scattered tiny foci acute to subacute infarctions in the bilateral cerebral hemispheres andright cerebellar hemisphere, possibly embolic. Small old lacunar infarcts in the bilateral basal ganglia/periventricular white matter. 80% focal stenosis at the left ICA terminus. Asymmetrically small caliber of the M1 segment of left MCA. Occlusion of A1 segment of left MONSTER. 90% focal stenosis at the origin of the P2 segment of the right POLICY SERVICE COORDINATOR. Additional 80% focal stenosis along the P2 segments of the bilateral cable braider. 40% stenosis at the origins of the bilateral internal carotid arteries. The results were sent to radiology results communication. Xr Chest Portable Result Date: 07/17/2019 1. Endotracheal tube remains in appropriate position. The enteric tube courses off the field of view in the upper abdomen. 2. Interval improved aeration of the lungs with findings of mild residual edema and left effusion. Mra Neck Wo Contrast Result Date: 07/12/2019 Known acute to subacute infarction in the right temporal lobe and lateral aspect of the right occipital lobe, stable in size since July 10, 2019. Associated local mass effect without midline shift. A few scattered tiny foci acute to subacute infarctions in the bilateral cerebral hemispheres andright cerebellar hemisphere, possibly embolic. Small old lacunar infarcts in the bilateral basal ganglia/periventricular white matter. 80% focal stenosis at the left ICA terminus. Asymmetrically small caliber of the M1 segment of left MCA. Occlusion of A1 segment of left MONSTER. 90% focal stenosis at the origin of the P2 segment of the right POLICY SERVICE COORDINATOR. Additional 80% focal stenosis along the P2 segments of the bilateral cable braider. 40% stenosis at the origins of the bilateral internal carotid arteries. The results were sent to radiology results communication. Mri Brain W Wo Contrast, MRI cervical spine Wo contrast Result Date: 07/16/2019 MRI brain: Slight decrease in conspicuity of multifocal recent infarcts. There is multifocal enhancement associated with the right posterior temporal occipital infarct compatible with subacute infarct. There is also a small amount of developing high T1 signal and decreased gradient echo signal suggesting petechial hemorrhagic staining. Multiple old infarcts Multifocal small-vessel ischemic changeMRI cervical spine: Multilevel degenerative disc disease, greatest between C4 and C6-7. See above for details of each level. High signal in the rightward aspect of the cord at C3-4. This is age indeterminate and may be due to developing myelomalacia from cord compression below this level. Another consideration would be recent cord ischemic change. Other etiologies, to include neoplasm and transverse myelitis, for high signal in the cord are considered less likely at this time. Follow-up is recommended. Mri Brain Wo Contrast Result Date: 07/12/2019 Known acute to subacute infarction in the right temporal lobe and lateral aspect of the right occipital lobe, stable in size since July 10, 2019. Associated local mass effect without midline shift. A few scattered tiny foci acute to subacute infarctions in the bilateral cerebral hemispheres andright cerebellar hemisphere, possibly embolic. Small old lacunar infarcts in the bilateral basal ganglia/periventricular white matter. 80% focal stenosis at the left ICA terminus. Asymmetrically small caliber of the M1 segment of left MCA. Occlusion of A1 segment of left MONSTER. 90% focal stenosis at the origin of the P2 segment of the right POLICY SERVICE COORDINATOR. Additional 80% focal stenosis along the P2 segments of the bilateral cable braider. 40% stenosis at the origins of the bilateral internal carotid arteries. The results were sent to radiology results communication. Labs and Images reviewed with: [x] Dr. Wilder Rosales [] Dr. Landen Lua [] Dr. Alan Pedroza [] There are no new interval images to review. PHYSICAL EXAM CONSTITUTIONAL: Intubated, Precedex held for exam. Opens eyes to voice and tracks bilaterally. Nodsappropriately to family. Follows simple commands. HEAD: normocephalic, atraumatic EYES: PERRL. Tracking bilaterally. ENT: moist mucous membranes NECK: supple, symmetric LUNGS: Equal air entry bilaterally CARDIOVASCULAR: normal s1 / s2, RRR, distal pulses intact ABDOMEN: Soft, no rigidity NEUROLOGIC: Mental Status: Intubated, Precedex held for exam. Opens eyes to voice and tracks bilaterally. Nods appropriately to family. Follows simple commands. Cranial Nerves: III: Pupils: equal, round, reactive to light III,IV,: Extra Ocular Movements: intact, tracking bilaterally VII: Facial strength: No obvious facial asymmetry Motor Exam: Gives thumbs up bilaterally. Weak resistance to gravity bilaterally when upper extremities passively raised, both fall to bed. Wiggles bilateral toes. 2+/5 strength bilateral lower extremities, able to flex at knee bilaterally. DRAINS: [x] There are no drains for Neuro Critical Care to monitor at this time. ASSESSMENT AND PLAN: The patient is a 68 yo female with a history of HTN, HLD, DM 2, CKD, CVA (2011 with no residual deficits), CAD, and aortic stenosis who was initially admitted on 07/03/19 after a scheduled CABGx3 and aortic valve replacement. Significant hypotension and bleeding post operatively, taken back to OR and found to have tamponade secondary to ruptured suture which was repaired. Chest closure performed 07/04. Patient noted to have persistent encephalopathy post operatively. Found to have a right MCA territory infarction. Started on Ke[place] for question of possible brief episode of seizure like activity. Persistent encephalopathy with generalized weakness, mildly worse on the right Encephalopathy likely mutlifactorial; metabolic, infectious, and medications which is typically reversible Patient clinically improving, continue to monitor Precedex for sedation; recommend keeping on lowest dose tolerated Recommend starting Seroquel 25mg QHS to help with agitation Normal ammonia, TSH/Thyroxine, Ammonia Mild VIVIAN, Nephrology following Right MCA territory infarction, likely cardioembolic OK to transition to PO anticoagulation for afib from Neuro Crit Care standpoint Clinical exam/encephalopathy not consistent with expected deficits resulting from patient's stroke LTME x3 days negative for subclinical seizures Maintain off AED Met with family and discussed recent imaging and patient's course on 07/17 Neurosurgery consulted regarding cspine imaging; no interventions planned On Unasyn per ID for pneumonia Ventilator management per Pulmonary team, work towards extubation now that mentation is improving Would recommend course of steroids for suspected airway/laryngeal edema in the setting of absent cuff leak We will continue to follow along. For any changes in exam or patient status please contact Neuro Critical Care. Meseret Arechiga APRN - [facility] Neuro Critical Care Pager [phone] 07/18/2019 8:33 AM Associated attestation - Wilder Rosales MD - 07/18/2019 4:45 PM EST Neuro critical care: Off precedex for 30 minutes at the time of exam. Opens eyes spontaneously and to commands. She squeezed both hands and wiggled both toes and flexed RLE at knee level, requires multiple commands/ encouragement and sometimes it feels like she does itat her will. Anyhow level of awakening and command following better than y'day. Each day she has shown mild improvements as expected. I suspect her encephalopathy will continue to improve once she is off all sedating meds. Minimize precedex infusion rate and d/c Versed PRN. Seroquel HS dose may help with minimizing sedation. She was on CPAP and breathing comfortably with good RSBI. No cuff leak when checked. Steroids if okwith primary & pulm teams. She may be a candidate for extubation attempt given level of alertness continues to improve and no other respiratory concerns. Family at bedside at the time of exam. Neuro exam and plan explained to them. RN and primary team SCHUYLER present in the room. Satnam Rosales MD * Alondra Vincent RN - 07/18/2019 8:00 AM EST Confirmed with Dr. Coronel to still give amio despite patient HR 50's. * Vasiliy Garcia APRN - NP - 07/18/2019 7:56 AM EST [facility] Daily Progress Note Surgeon: Dr. Teresa S/P : Coronary artery bypass X3 AVR POD#: 14 EF: 51 % Subjective:Today patient remains intubated. She is still unable to follow commands, but opens up her eyes with stimulation. She is currently hemodynamically stable in normal sinus rhythm. She is diuresing greater than >65 mL an hour. Currently patient is off fentanyl infusion to obtain a accurate neuro assessment. Blood pressure being controlled. Physical Exam Vital Signs: BP (!) 150/50 Pulse 53 Temp 98.5 F (36.9 C) (Axillary) Resp 22 Ht 5' 2 (1.575m) Wt 169 lb 15.6 oz (77.1 kg) SpO2 98% BMI 31.09 kg/m O2 Flow Rate (L/min): 15 L/min Admit Weight: Weight: 144 lb 2.9 oz (65.4 kg) General: responsive to pain and stimuli. She is starting to follow small commands. She will open eyes to command. Squeeze hands. Give thumbs up. Wiggle toes. Move legs. Heart: A. Fib S1 and S2 No murmurs, Pacing Wires Yes Lungs: clear to auscultation bilaterally and rhonchi bilaterally mid lower lobes Abdomen: soft, non tender, non distended, BSx4 Extremities: non-pitting edema Wounds: clean and dry, healing appropriately. Scheduled Meds: insulin glargine 20 Units Subcutaneous Nightly ampicillin-sulbactam 1.5 g Intravenous Q6H sodium chloride 20 mL Intravenous Once sodium chloride flush 10 mL Intravenous BID cloNIDine 1 patch Transdermal Weekly vitamin B-1 100 mg Oral Daily spironolactone 50 mg Oral BID carvedilol 12.5 mg Oral BID WC bumetanide 3 mg Intravenous BID lidocaine 1 % injection 5 mL Intradermal Once sodium chloride flush 10 mL Intravenous 2 times per day insulin lispro 0-18 Units Subcutaneous TID WC insulin lispro 0-9 Units Subcutaneous Nightly amiodarone 200 mg Oral BID potassium chloride 40 mEq Intravenous Once famotidine 20 mg Oral Daily sodium chloride flush 10 mL Intravenous 2 times per day sodium chloride flush 10 mL Intravenous 2 times per day docusate sodium 100 mg Oral BID polyethylene glycol 17 g Oral Daily chlorhexidine 15 mL Mouth/Throat BID therapeutic multivitamin-minerals 1 tablet Oral Daily with breakfast atorvastatin 40 mg Oral Nightly clopidogrel 75 mg Oral Daily insulin lispro 0-6 Units Subcutaneous Nightly Continuous Infusions: heparin 25,000 units in 0.9% sodium chloride 250 mL infusion 20 Units/kg/hr (07/18/19 4214) dexmedetomidine (PRECEDEX) IV infusion 0.5 mcg/kg/hr (07/18/19 4492) dextrose Data: CBC: Recent Labs 07/16/19 0502 07/17/19 04507/18/19 043 WBC 19.4* 19.2* 21.3* HGB 7.0* 7.8* 8.4* HCT 22.7* 24.1* 26.3* MCV 91.2 90.6 92.0 PLT 218 216 246 BMP: Recent Labs 07/16/19 0502 07/17/196 07/18/19 043 NA 139 137 138 K 3.9 4.1 4.0 CL 99 99 97* CO2 PHOS 3.0 -- 4.8* BUN 26* 33* 34* CREATININE 1.26* 1.34* 1.68* PT/INR: Recent Labs 07/16/19 05007/17/1945507/18/19430 PROTIME 11.9 11.4 11.3 INR 1.1 1.1 1.1 APTT: Recent Labs 07/16/19 1850 07/17/1945507/18/19430 APTT 57.8* 59.8* 54.1* Chest X-Ray: Chest x-ray from yesterday shows improved aeration of the lungs but still has some edema present and small left effusion. I/O: I/O last 3 completed shifts: In: 1776.7 [I.V.:583.7; NG/GT:1193] Out: 2084 [Urine:2084] Assessment & Plan: Patient Active Problem List Diagnosis CAD, multiple vessel Encephalopathy Acute cerebral infarction (HCC) Seizure (HCC) Encephalopathy, unspecified Ischemic stroke (HCC) Chronic a-fib Anticoagulated PLAN: Based on infectious disease findings-change in antibiotics to improve lungs Determine further care and plan from neurology-begin discussion of patient maybe going to LTAC. Continue precedex PRN per neurology to obtain best neuro exam Await family meeting with neuro and available teams for further discussion of plan Await a plan regarding trach and peg. -Dr. Stein wants to start coumadin, but would rather have Peg tube placed prior. -Dr. Mena states giving her more time, maybe 2 days before we begin thinking about trach and peg. Family updated regarding care. Neurology recommendations Start decadron 4mg Q6 to help with some laryngeal edema in possible prep for extubation Start Seroquel low dose 25mg BID starting tonight,To help get off precedex. The above recommendations including medications and orders were discussed and agreed upon with Dr Teresa, the attending on service for the cardiothoracic surgery group today. VASILIY GARCIA APRN, COMMUNITY LIVING SPECIALIST * Janusz Stein MD - 07/18/2019 7:39 AM EST Tyra Vice President Sales And Marketing Progress Note Date: 07/18/2019 Patient name: Eleanor Mcclain Date of admission: 07/03/2019 5:13 AM Date of : 1950 PCP: Grayson Hernandez MD Reason for Admission: CAD, multiple vessel [I25.10] Subjective: Patient seen and examined. Patient remains intubated and not following commands I/O last 3 completed shifts: In: 1776.7 [I.V.:583.7; NG/GT:1193] Out: 2085 [Urine:2085] No intake/output data recorded. In: 1776.7 [I.V.:583.7; NG/GT:1193] Out: 1250 [Urine:1250] Intake/Output Summary (Last 24 hours) at 07/18/2019 0745 Last data filed at 07/18/2019 0600 Gross per 24 hour Intake 1776.7 ml Output 2085 ml Net -308.3 ml Medications: Scheduled Meds: insulin glargine 20 Units Subcutaneous Nightly ampicillin-sulbactam 1.5 g Intravenous Q6H sodium chloride 20 mL Intravenous Once sodium chloride flush 10 mL Intravenous BID cloNIDine 1 patch Transdermal Weekly vitamin B-1 100 mg Oral Daily spironolactone 50 mg Oral BID carvedilol 12.5 mg Oral BID WC bumetanide 3 mg Intravenous BID lidocaine 1 % injection 5 mL Intradermal Once sodium chloride flush 10 mL Intravenous 2 times per day insulin lispro 0-18 Units Subcutaneous TID WC insulin lispro 0-9 Units Subcutaneous Nightly amiodarone 200 mg Oral BID potassium chloride 40 mEq Intravenous Once famotidine 20 mg Oral Daily sodium chloride flush 10 mL Intravenous 2 times per day sodium chloride flush 10 mL Intravenous 2 times per day docusate sodium 100 mg Oral BID polyethylene glycol 17 g Oral Daily chlorhexidine 15 mL Mouth/Throat BID therapeutic multivitamin-minerals 1 tablet Oral Daily with breakfast atorvastatin 40 mg Oral Nightly clopidogrel 75 mg Oral Daily insulin lispro 0-6 Units Subcutaneous Nightly Continuous Infusions: heparin 25,000 units in 0.9% sodium chloride 250 mL infusion 20 Units/kg/hr (07/18/19 0532) dexmedetomidine (PRECEDEX) IV infusion 0.5 mcg/kg/hr (07/18/19 0534) dextrose CBC: Recent Labs 07/16/19 0502 07/17/196 07/18/19 0431 WBC 19.4* 19.2* 21.3* HGB 7.0* 7.8* 8.4* PLT 218 216 246 BMP: Recent Labs 07/16/19 0502 07/17/196 07/18/19 043 NA 139 137 138 K 3.9 4.1 4.0 CL 99 99 97* CO2 26 25 25 BUN 26* 33* 34* CREATININE 1.26* 1.34* 1.68* GLUCOSE 259* 234* 190* Hepatic: No results for input(s): AST, ALT, ALB, BILITOT, ALKPHOS in the last 72 hours. Troponin: No results for input(s): TROPONINI in the last 72 hours. No results for input(s): TROPONINT in the last 72 hours. BNP: No results for input(s): PROBNP in the last 72 hours. No results for input(s): BNP in the last 72 hours. Lipids: No results for input(s): CHOL, HDL in the last 72 hours. Invalid input(s): LDLCALCU INR: Recent Labs 07/16/19 0502 07/17/19 0456 07/18/19 0431 INR 1.1 1.1 1.1 Objective: Vitals: BP (!) 150/50 Pulse 53 Temp 98.5 F (36.9 C) (Axillary) Resp 22 Ht 5' 2 (1.575 m) Wt 169 lb 15.6 oz (77.1 kg) SpO2 98% BMI 31.09 kg/m General appearance: Intubated HEENT: Head: Normocephalic, atraumatic without any obvious abnormalities. Lungs: Coarse breath sound b/l Heart: raza, no murmurs, mechanical click Abdomen: soft, nontender with bowel sounds present in all 4 quadrants. Extremities: Lower extremity edema is present + bilaterally. Peripheral pulses in b/l LE present Integumentum:Intact with no rashes noted. Diagnostic Studies: EKG: Normal sinus rhythm ECHO: 06/27/2019 Left ventricle is normal in size, increased septal wall thickness, global left ventricular systolic function is low normal, calculated ejection fraction is 51%. Evidence of moderate (grade II) diastolic dysfunction. Peak instantaneous gradient 58 mmHg and mean gradient 34 mmHg, suggesting moderate to severe aortic stenosis. Mild to moderate mitral stenosis ( calculated valve area of 3.73cm2 with a mean gradient of 6mmHg.) Mild mitral regurgitation. Cath 05/2019 - LAD: p LAD 70% stenosis - LCX - co-dominant, OM1: 70% stenosis - RCA- 50% PDA MRI brain/neck: 07/13 Known acute to subacute infarction in the right temporal lobe and lateral aspect of the right occipital lobe, stable in size since July 10, 2019. Associated local mass effect without midline shift. A few scattered tiny foci acute to subacute infarctions in the bilateral cerebral hemispheres and right cerebellar hemisphere, possibly embolic. Small old lacunar infarcts in the bilateral basal ganglia/periventricular white matter. 80% focal stenosis at the left ICA terminus. Asymmetrically small caliber of the M1 segment of left MCA. Occlusion of A1 segment of left MONSTER. 90% focal stenosis at the origin of the P2 segment of the right POLICY SERVICE COORDINATOR. Additional 80% focal stenosis along the P2 segments of the bilateral cable braider. 40% stenosis at the origins of the bilateral internal carotid arteries. MRI 07/16 Slight decrease in conspicuity of multifocal recent infarcts. There is multifocal enhancement associated with the right posterior temporal occipital infarct compatible with subacute infarct. There is also a small amount of developing high T1 signal and decreased gradient echo signal suggesting petechial hemorrhagic staining. Multiple old infarcts Multifocal small-vessel ischemic change MRI cervical spine: Multilevel degenerative disc disease, greatest between C4 and C6-7. See above for details of each level. High signal in the rightward aspect of the cord at C3-4. This is age indeterminate and may be due to developing myelomalacia from cord compression below this level. Another consideration would be recent cord ischemic change. Other etiologies, to include neoplasm and transverse myelitis, for high signal in the cord are considered less likely at this time. Follow-up is recommended. Assessment / Acute Cardiac Problems: 1. Severe and MVD - sp AVR 21MM INTUITY VALVE 07/03/2019 and CABG - CAMPBELL-LAD, SVG- OM2, SVG- PVL 2. Post-op bleeding with tamponade related to distal anastomosis site bleeding from SVG-PLV s/p repair 07/03/2019 and now s/p closure of chest wall 07/04/2019 3. Paroxysmal A. fib - episode 07/06 and 07/07 and 07/14 - now in sinus and on amiodarone 4. Resp failure - re-intubated 07/11/2019 5. Intra OP LOVE LV function of 45%, was 51% on pre op TTE 6. Possible seizure episode 07/07 7. Hypertensive urgency 8. DM-2 9. Post OP blood loss anemia (Hgb 7.0) -s/p one unit PRBC 07/16/2019 10. VIVIAN - nephrology following, stable 11. Paroxysmal afib 12. Thrombocytopenia - improving 13. Prolonged QTc 14. Subacute CVA on CT - neurology following 15. Hypernatremia - improved Plan of Treatment: 1. On Plavix, Lipitor, Coreg 12.5 bid, Bumex 3 mg IV bid, Aldactone 50 bid. 2. Continue oral amiodarone 200 mg BID - sinus rhythm with normal QTC. 3. On heparin drip for A. Fib - can be transitioned to oral anticoagulation per neurology 4. Diuresis per Nephrology -VIVIAN with Cr 1.6 from 1.3 yesterday -hold diuresis and discuss with nephrology ongoing diuresis 5. Hb 8.4 from 7.8 yesterday 6. Repeat ECHO with LVEF 45%, aortic valve in position with no significant AI and mean gradient of 13 mm Hg, no pericardial effusion 7. Possible Seizures, EEG with encephalopathy with out evidence of seizures 8. Repeat MRI redomonstration of stroke with possible small amount of petechial hemorrhage with C spine changes as mentioned above - neurosurgery consulted for spine findings on MRI 9. Vent management per Pulmonary 10. On antibiotics for possible pneumonia per ID 11. Diuresis per nephrology 12. Post OP management per CT surgery Thank you for allowing us to participate in Eleanor Mcclain's care. Will follow with you. Electronically signed on 07/18/19 at 7:45 AM by: Nuha Coronel MD Fellow, Cardiovascular Diseases [facility] Attending Physician Statement I have discussed the care of the patient, including pertinent history and exam findings, with the resident. I have seen and examined the patient and the mendoza elements of all parts of the encounter have been performed by me. I agree with the assessment, plan and orders as documented by the resident. Talked withe family Ask CT surgery about the timing of ? Trach/G tube, as Neuro ok for oral anticoagulation So can start coumadin Janusz Stein MD * Larissa Garcia RN - 07/17/2019 1:50 PM EST Spoke with Diego Garcia NP. 24 hours restraint orders to be placed. * Loraine Mary RD, LD - 07/17/2019 12:21 PM EST Nutrition Assessment (Enteral Nutrition) Type and Reason for Visit: Reassess Nutrition Recommendations: -Continue NPO status -Continue tube feeding of Glucerna 1.2 (Diabetic) @ 50 mL/hr x 24 hrs ~> 1440 kcals, 72 gms protein (w/out propofol running) -Will continue to monitor EN and labs Nutrition Assessment: Pt improving from a nutritional standpoint aeb tube feeding running @ goal rate of 50 mL/hr during time of visit and tolerating. Pt remains intubated and off sedation. Pt w/ 30 lb wt gain since admission, most likely r/t fluid. Will continue to monitor. Malnutrition Assessment: Malnutrition Status: Insufficient data Context: Acute illness or injury Findings of the 6 clinical characteristics of malnutrition (Minimum of 2 out of 6 clinical characteristics is required to make the diagnosis of moderate or severe Protein Calorie Malnutrition based on AND/ASPEN Guidelines): 1. Energy Intake-Greater than 75% of estimated energy requirement, Greater than or equal to 5 days 2. Weight Loss-No significant weight loss, 3. Fat Loss-Unable to assess, 4. Muscle Loss-Unable to assess, 5. Fluid Accumulation-Mild fluid accumulation, Extremities, Generalized 6. 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 Signs and symptoms: as evidenced by Intubation, Nutrition support - EN, NPO status due to medicalcondition Objective Information: Wound Type: Multiple(Incisions ) Current Nutrition Therapies: Oral Diet Orders: NPO Tube Feeding (TF) Orders: Feeding Route: Nasogastric Formula: Diabetic Rate (ml/hr):50 mL/hr Volume (ml/day): 1200 mLs Duration: Continuous Current TF & Flush Orders Provides: Glucerna 1.2 @ 50 mL/hr x 24 hrs ~> 1440 kcals, 72 gms protein Goal TF & Flush Orders Provides: Glucerna 1.2 @ 50 mL/hr x 24 hrs ~> 1440 kcals, 72 gms protein Additional Calories: propofol off @ this time Anthropometric Measures: Ht: 5' 2 (157.5 cm) Current Body Wt: 174 lb (78.9 kg) Admission Body Wt: 144 lb (65.3 kg) Weight Change: 146-147 lbs over 2 mo per EMR; 36 lb wt gain x 1 wk [place] Body Wt: 110 lb 3.7 oz (50 kg), % [place] Body 159% adm/ideal BMI Classification: BMI 25.0 - 29.9 Overweight(26.2 - admit wt ) Nutrition Interventions: Continue NPO, Continue current Tube Feeding Continued Inpatient Monitoring, Education not appropriate at this time Nutrition Evaluation: Evaluation: Goal achieved Goals: Meet 75-100% of estimated nutrition needs Monitoring: Nutrition Progression, TF Intake, TF Tolerance, I&O, Skin Integrity, Wound Healing,Weight, Pertinent Labs, Monitor Bowel Function Contact Number: [phone] * Sana Gonsalez RCP - 07/17/2019 11:25 AM EST 07/17/19 0926 Vent Information Vent Type Servo i Vent Mode CPAP Pressure Support 8 cmH20 FiO2 40 % Sensitivity 5 PEEP/CPAP 5 Started wean at 0925 Stopped wean due to tachypnea, WOB at 11:23 * Tiarra Leiva MD - 07/17/2019 10:57 AM EST Nephrology Progress Note SUBJECTIVE Pt was seen and examined. Following patient for VIVIAN from ischemic ATN. Patient came in for CABG and AVR which was complicated with postoperative cardiac tamponade and hypotension, had graft displacement as well. Required redo procedure and chest wash out post surgery. Suspect MCA infarct. + PAF Creatinine 1.2-1.4, within baseline range She is on bumex IV bid currently MRI reviewed, shows large infarct in the right temporal and lateral occipital lobes in addition to multiple embolic emboli. Her clinical findings are more on the right side with right upper and lowerextremity weakness which does not fit in with the MRI findings completely. Neurology will discuss with family about neurological prognosis and further plan of care will be decided. Last 24-hour urine output has declined slightly. Fajardo still in place. Hemodynamically stable. Continues on Bumex twice a day. Also on Aldactone. OBJECTIVE CURRENT TEMPERATURE: Temp: 97 F (36.1 C) MAXIMUM TEMPERATURE OVER 24HRS: Temp (24hrs), Av.4 F (36.3 C), Min:96.8 F (36 C), Max:98.4 F (36.9 C) CURRENT RESPIRATORY RATE: Resp: 21 CURRENT PULSE: Pulse: 59 CURRENT BLOOD PRESSURE: BP: (!) 157/59 24HR BLOOD PRESSURE RANGE: Systolic (24hrs), Av , Min:111 , Max:163 ; Diastolic (24hrs), Av, Min:51, Max:136 24HR INTAKE/OUTPUT: Intake/Output Summary (Last 24 hours) at 07/17/2019 1057 Last data filed at 07/17/2019 0900 Gross per 24 hour Intake 1712 ml Output 915 ml Net 797 ml WEIGHT : Patient Vitals for the past 96 hrs (Last 3 readings): Weight 07/17/19 0200 174 lb 2.6 oz (79 kg) 07/16/19 0330 171 lb 11.8 oz (77.9 kg) 07/15/19 0500 174 lb 6.1 oz (79.1 kg) PHYSICAL EXAM General: Sedated and Intubated on the ventilator Neck: oral endotracheal tube in place Chest: Bilateral air entry and clear to auscultation with diminished breath sounds at the bases Cardiac: Regular rate and rhythm with positive S1 and S2 Abdomen: Obese and soft and mildly distended, sluggish bowel sounds Extremities: trace lower extremity edema Neuro: Unresponsive , does not move Rt UE/LE CURRENT MEDICATIONS heparin (porcine) 100 UNIT/ML infusion, insulin glargine (LANTUS) injection vial 20 Units, Nightly chlorothiazide (DIURIL) injection 500 mg, Once 0.9 % sodium chloride bolus, Once bumetanide (BUMEX) injection 2 mg, PRN sodium chloride flush 0.9 % injection 10 mL, BID midazolam (VERSED) injection 2 mg, Q4H PRN heparin (porcine) 25,000 Units in sodium chloride 0.9 % 250 mL infusion, Continuous cefepime (MAXIPIME) 1 g IVPB minibag, Q12H cloNIDine (CATAPRES) 0.1 MG/24HR 1 patch, Weekly labetalol (NORMODYNE;TRANDATE) injection 10 mg, Q4H PRN hydrALAZINE (APRESOLINE) injection 10 mg, Q4H PRN vitamin B-1 (THIAMINE) tablet 100 mg, Daily spironolactone (ALDACTONE) tablet 50 mg, BID carvedilol (COREG) tablet 12.5 mg, BID WC bumetanide (BUMEX) injection 3 mg, BID lidocaine 1 % injection 5 mL, Once sodium chloride flush 0.9 % injection 10 mL, 2 times per day sodium chloride flush 0.9 % injection 10 mL, PRN insulin lispro (HUMALOG) injection vial 0-18 Units, TID WC insulin lispro (HUMALOG) injection vial 0-9 Units, Nightly amiodarone (CORDARONE) tablet 200 mg, BID potassium chloride 10 mEq/100 mL IVPB (Peripheral Line), Once famotidine (PEPCID) tablet 20 mg, Daily dexmedetomidine (PRECEDEX) 400 mcg in sodium chloride 0.9 % 100 mL infusion, Continuous sodium chloride flush 0.9 % injection 10 mL, 2 times per day sodium chloride flush 0.9 % injection 10 mL, PRN sodium chloride flush 0.9 % injection 10 mL, 2 times per day sodium chloride flush 0.9 % injection 10 mL, PRN calcium chloride 1 g in sodium chloride 0.9 % 100 mL IVPB, PRN magnesium sulfate 1 g in dextrose 5% 100 mL IVPB, PRN potassium chloride 20 mEq/50 mL IVPB (Central Line), PRN acetaminophen (TYLENOL) tablet 650 mg, Q4H PRN acetaminophen (TYLENOL) suppository 650 mg, Q4H PRN oxyCODONE-acetaminophen (PERCOCET) 5-325 MG per tablet 1 tablet, Q4H PRN Or oxyCODONE-acetaminophen (PERCOCET) 5-325 MG per tablet 2 tablet, Q4H PRN docusate sodium (COLACE) capsule 100 mg, BID polyethylene glycol (GLYCOLAX) packet 17 g, Daily bisacodyl (DULCOLAX) suppository 10 mg, Daily PRN ondansetron (ZOFRAN) injection 4 mg, Q8H PRN chlorhexidine (PERIDEX) 0.12 % solution 15 mL, BID therapeutic multivitamin-minerals 1 tablet, Daily with breakfast atorvastatin (LIPITOR) tablet 40 mg, Nightly clopidogrel (PLAVIX) tablet 75 mg, Daily albumin human 5 % IV solution 25 g, PRN insulin lispro (HUMALOG) injection vial 0-6 Units, Nightly glucose (GLUTOSE) 40 % oral gel 15 g, PRN dextrose 50 % IV solution, PRN glucagon (rDNA) injection 1 mg, PRN dextrose 5 % solution, PRN LABS CBC: Recent Labs 07/15/19 17007/16/19 0502 07/17/19 0456 WBC 22.0* 19.4* 19.2* RBC 2.52* 2.49* 2.66* HGB 7.3* 7.0* 7.8* HCT 23.8* 22.7* 24.1* MCV 94.4 91.2 90.6 MCH 29.0 28.1 29.3 MCHC 30.7 30.8 32.4 RDW 15.0* 14.9* 15.4* PLT 233 218 216 MPV 10.6 10.1 10.5 BMP: Recent Labs 07/15/19 1701 07/16/19 0502 07/17/19 0456 NA 137 139 137 K 3.5* 3.9 4.1 CL 99 99 99 CO2 27 26 25 BUN 23 26* 33* CREATININE 1.22* 1.26* 1.34* GLUCOSE 307* 259* 234* CALCIUM 7.9* 8.4* 8.5* PHOSPHORUS: Recent Labs 07/16/19 0502 PHOS 3.0 MAGNESIUM: Recent Labs 07/15/19 0425 07/16/19 0502 07/17/19 0456 MG 2.0 2.0 2.1 TETO: Lab Results Component Value Date TETO NEGATIVE 07/05/2019 SPEP: Lab Results Component Value Date PROT 5.7 07/09/2019 ALBCAL 3.6 Chief Complaint and Reason for Visit Chief Complaint Admit Date Renal Stage 4 kidney disease February 1:21pm N25.81 I12.9 N18.9 d63.1 e11.22 n18.4 No vember 2023 12:25pm Reason for Visit Admit Date Anemia of renal disease March 08 1:21pm CKD (chronic kidney disease) stage 4, GF R 15-29 ml/min March 08, 2024 1:21pm Hypertensive chronic kidney disease with stage 1 through stage 4 chronic ki March 08, 2024 1:21pm Secondary hyperparathyroidism March 082023 1:21pm Type 2 diabetes mellitus wit h diabetic chronic kidney disease March 08, 2024 1:21pm Chief Complaint Admit Date Renal Stage 4 kidney disease February 1:21pm n25.81 i12.9 n18.4 n18.9 d63.1 e11.22 No vember 2023 10:27am N25.81 I12.9 N18.9 d63.1 e11.22 n18.4 No vember 2023 12:25pm Additional Source Comments Reason for Visit (unrecogniz ed section and content) Status Reason Specialty Diagnoses / Procedures Referre d By Contact Referred To Contact Diagnoses NEED DIAGNOSIS Procedures LEFT AND RIGHT HEART CATH Status Reason Specialty Diagnoses / Procedures Referre d By Contact Referred To Contact Closed Diagnoses CAD, multiple vessel Pre-op testing Procedures Echocardiogram transthoracic Echocardiogram transthoracic [id number] Vasiliy Garcia APRN - TROLLEY WORKER [address] [facility] [address] [place] [id number] Vasiliy Garcia APRN - TROLLEY WORKER [address] [facility] [address] [place] [id number] Status Reason Specialty Diagnoses / Procedures Referre d By Contact Referred To Contact Closed Diagnoses CAD, multiple vessel Pre-op testing Procedures VL Vein Mapping Lower Bilateral VL Vein Mapping Lower Bilateral HCHG DUPLEX EXTREM VENOUS,BILAT Vasiliy Garcia APRN - TROLLEY WORKER [address] [facility] [address] [place] [id number] Vasiliy Garcia APRN - TROLLEY WORKER [address] [facility] [address] [place] [address] Status Reason Specialty Diagnoses / Procedures Referre d By Contact Referred To Contact Closed Radiology Diagnoses CAD, multiple vessel Pre-op testing Procedures CT Chest WO Contrast CT Chest WO Contrast HC CT CHEST W/O CONTRAST Vasiliy Garcia APRN - TROLLEY WORKER [address] [address] Status Reason Specialty Diagnoses / Procedures Referre d By Contact Referred To Contact Diagnoses 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 Procedures IN CABG, ARTERY-VEIN, TWO CABG CORONARY ARTERY BYPASS X2; AORTIC VALVE REPLACEMENT, ON PUMP, SWAN SHAWN, LOVE Caro Teresa MD [address] [facility] [address] [place] [address] [facility] Status Reason Specialty Diagnoses / Procedures Referred By Contact Referred To Contact Pending Review Vascular Lab Diagnoses CAD, multiple vessel Pre-op testing Bilateral carotid bruits Procedures VL DUP CAROTID BILATERAL VL DUP CAROTID BILATERAL HC EXTRACRANIAL BILAT STUDY Vasiliy Garcia APRN - TROLLEY WORKER [address] [facility] [address] [place] [address] [facility] [address] [place] [phone] Specialty Diagnoses / Procedures Referred By Contac t Referred To Contact Diagnoses Palpitations Procedures Cardiac event monitor Anshul Irizarry MD [address] [place] [phone] Referral ID Status Reason Start Date Expiration Date Visits Re quested Visits Authorized [id number] Closed 09/07/2021 09/07/2022 1 1 Reason Onset Date Comments Med Refill 07/01/2023 Specialty Diagnoses / Procedures Referred By Contac t Referred To Contact Diagnoses Chronic a-fib (HCC) Chronic a-fib (HCC) [I48.20] Procedures IN ECHO TRANSESOPHAG R-T 2D W/PRB IMG ACQUISJ I&R IN ECHO TRANSESOPHAG R-T 2D W/PRB IMG ACQUISJ I&R Love during cath case Matty Martinez MD [address] [place] [id number] [facility] [address] [place] [address] Referral ID Status Reason Start Date Expiration Date Visits Re quested Visits Authorized [id number] 1 1 Specialty Diagnoses / Procedures Referred By Contac t Referred To Contact Diagnoses SOB (shortness of breath) Procedures Nuclear stress test with myocardial perfusion Anshul Irizarry MD [address] [place] [id number] Referral ID Status Reason Start Date Expiration Date Visits Re quested Visits Authorized [id number] Closed 09/27/2023 10/28/2023 3 3 Reason Comments Depression Anxiety Sleeping Problem Memory Loss Reason Comments Fall Reason Comments Med Refill Reason Comments Med Change Request Reason Onset Date Comments Med Refill 05/28/2024 Reason Onset Date Comments follow up appointment 05/30/2023 Reason Comments Hypertension Hyperlipidemia Diabetes Tasia Irizarry MD - 06/06/2019 6:16 AM EST H&P Notes (unrecognized sect ion and content) Tasia Irizarry M.D. [facility] [address] [address] May 10, 2019 Grayson Hernandez MD [address] [place] [address] RE: Eleanor Mcclain : [address] Hernandez: CHIEF COMPLAINT: 1. Severe aortic stenosis. 2. Shortness of breath. 3. Marked fatigue, possibly secondary to aortic stenosis. HISTORY OF PRESENT ILLNESS: Mrs. Mcclain is a pleasant 68-year-old female who has a history of aortic stenosis. In 2016, she had mild aortic stenosis with [id number] mitral and tricuspid regurgitation, with normal ejection fraction. On 07/12/2017, she had another echocardiogram that showed an EF of 55% with severe dilatation of the left atrium and right atrium, and right ventricle normal. She had moderate aortic stenosis, read on an echocardiogram in [place]. Her last echocardiogram was on 03/30/2019, also at [place]. This showed normal EF of 55% to 60%. She had mildly dilated left atrium, the right-sided chambers were normal. She had severe mitral annular calcification, with moderate mitral regurgitation. She had a mildly calcified aortic valve and Doppler suggested severe aortic stenosis. She had an aortic valve area estimated at 0.8 cm2. I was asked to see her for aortic stenosis. She has noted a marked decline in her energy level and increased shortness of breath over the past year. This was noticed when she went to [facility] in 06/2018 and had difficulty with keeping up with the tour group. She denies chest pain or chest discomfort although she has some atypical discomfort, not related to activity. She has had some edema that has developed over the past several months, mainly in the evening. She feels that they are fairly normal in the morning. She denies any syncope or near syncope. Denies any palpitations. She has been under much stress with her youngest son who has difficulty with anger issues and is going through a divorce. Her son has a 14-year-old son who also has got anger issues and who has been living with Mrs. Mcclain and her for the last several weeks. She has never had a cardiac catheterization, never had a myocardial infarction. CARDIAC RISK FACTORS: Hypertension: Positive. Hyperlipidemia: Positive. Peripheral Vascular Disease: Negative. Other Family Members: Positive. Diabetes: Positive. Smoking: Negative. MEDICATIONS AT THIS TIME: She is on Norvasc 10 mg daily, aspirin 81 mg daily, Plavix 75 mg daily, Prozac 40 mg daily, Lopid 600 mg b.i.d., Cozaar 100 mg daily, magnesium 30 mg daily, Glucophage 1000 mg b.i.d., Aldactone 25 mg b.i.d., Desyrel 50 mg half a tablet nightly. PAST MEDICAL HISTORY: 1. She has a history of hyperlipidemia, discovered in 2003. 2. Long history of depression. 3. She has oyl-tggdvta-wuibxyxdp diabetes, which is under good control. 4. She has hypertension. 5. She has basal cell carcinoma of the skin and retinal hemorrhage of both eyes. 6. Total abdominal hysterectomy and bilateral salpingo-oophorectomy in 1991. 7. She does have a history of mild renal insufficiency, which has been stable. FAMILY HISTORY: Father at 82 of cancer. Mother of diabetes and a stroke. SOCIAL HISTORY: She is 68 years old. Has 4 children, all sons. Her youngest son is 41 years old and is an alcoholic. He has moved in and out of his parent's house. He had a fight with his 14-year-old son and ended up in [facility] overnight. He is going through a possible divorce and lives with another woman. It has been very stressful for . They were trying to get temporary custody of their 14-year-old grandson, but the gbrtmokp-kz-xbo will not do this. The bxlvxfez-vk-xue has filed for divorce from their son. She does not smoke, does not drink alcohol. Her has also retired. They went to [place] in June and she had difficulty keeping up with the [employer] group. She does not exercise. 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 REVIEW OF SYSTEMS: Cardiac as above. Other systems reviewed including constitutional, eyes, ears, nose and throat, cardiovascular, respiratory, GI, , musculoskeletal, integumentary, neurologic, psychiatric, endocrine, hematologic and allergic/immunologic are negative except for what is described above. No weight loss or weight gain. No change in bowel habits. No blood in stool. No fevers, sweats or chills. PHYSICAL EXAMINATION: VITAL SIGNS: Her blood pressure was markedly elevated at 190/90 with a heart rate of 80 and regular. Respiratory rate 18. O2 sat 99%. Weight 146 pounds. GENERAL: She is a pleasant 68-year-old female. Denied pain. She was oriented to person, place and time. Answered questions appropriately. SKIN: No unusual skin changes. HEENT: The pupils are equally round and intact. Mucous membranes were dry. NECK: No JVD. Good carotid pulses. No carotid bruits. No lymphadenopathy or thyromegaly. CARDIOVASCULAR EXAM: S1 and S2 were normal. No S3 or S4. Soft systolic blowing type murmur. No diastolic murmur. PMI was normal. No lift, thrust, or pericardial friction rub. LUNGS: Quite clear to auscultation and percussion. ABDOMEN: Soft and nontender. Good bowel sounds. EXTREMITIES: Good femoral pulses. Good pedal pulses. No pedal edema. Skin was warm and dry. No calf tenderness. Nail beds pink. Good cap refill. PULSES: Bilateral symmetrical radial, brachial and carotid pulses. No carotid bruits. Good femoral and pedal pulses. NEUROLOGIC EXAM: Within normal limits. PSYCHIATRIC EXAM: Within normal limits. LABORATORY DATA: From 05/10/2019, sodium 140, potassium 4.8, BUN 23, creatinine 1.33, GFR was 39, calcium was 10.5. Cholesterol 252 with an HDL of 113, LDL 128, triglycerides 54. ALT was 9, AST was 14. Hemoglobin A1c was 6.1. TSH was 1.55. Vitamin D 31.5. White count 7.3, hemoglobin 11.1, platelet count 432,000. EKG showed normal sinus rhythm, was normal. Chest x-ray was unremarkable. Echocardiogram on 03/30/2019, at [place] demonstrated ejection fraction greater than 50%, with mild dilatation of left atrium. She had normal right-sided chambers, with calcified aortic valve with severe aortic stenosis with an aortic valve area of 0.8 cm2. IMPRESSION: 1. Severe aortic stenosis by an echocardiogram at [place], where it showed an aortic valve area 0.8 cm2. 2. Marked loss of energy and shortness of breath with exertion over the last year but markedly worse in the last several months, probably secondary to symptomatic aortic stenosis. 3. Ppj-sfqojii-yphgtpage diabetes, under good control, with her hemoglobin A1c of 6.1. 4. Hypertension, very labile, very elevated in our office today at 190/90. PLAN: We will proceed with a left and right cardiac catheterization to define her anatomy and to directly measure her aortic valve area. DISCUSSION: Mrs. Mcclain has had marked increase in shortness of breath and loss of energy over the last year but especially in the last several months. Her echocardiogram in [place] on 03/30/2019 showed aortic stenosis with an aortic valve area of 0.8 cm2. I did a bedside echocardiogram, and the aortic valve was markedly calcified with limited excursion. She appeared to me to have moderate mitral regurgitation and tricuspid regurgitation also, although this was on a bedside echocardiogram. We discussed options. We could do a transesophageal echocardiogram to look closer at the aortic valve; however, I think with her symptoms, which are compelling for a possible aortic stenosis and her echocardiogram that showed severe aortic stenosis, I think it is reasonable to proceed directly with a left and right cardiac catheterization. She was fairly hypertensive today but was fairly nervous also and was somewhat distraught at her family situation, with her youngest son and his troubles. Therefore, I made no change in medications. We will plan on doing the catheterization on the second week in May in [place]. Risks and benefits have been outlined. Thank you very much for allowing me the privilege of seeing Mrs. Mcclain. If you have any questions on my thoughts, please do not hesitate to contact me. Sincerely, TASIA IRIZARRY documented in this encounter INFORMATION SOURCE (unrecogn ized section and content) DATE CREATED AUTHOR 06/27/2019 [facility] DATE CREATED AUTHOR AUTHOR'S ORGANIZ ATION 02/01/2020 [facility] DATE CREATED AUTHOR AUTHOR'S ORGANIZ ATION 06/23/2021 [facility] DATE CREATED AUTHOR AUTHOR'S ORGANIZ ATION 10/04/2021 [facility] dical Specialist DATE CREATED AUTHOR AUTHOR'S ORGANIZ ATION 07/27/2022 [facility] DATE CREATED AUTHOR AUTHOR'S ORGANIZ ATION 09/04/2023 [facility] DATE CREATED AUTHOR AUTHOR'S ORGANIZ ATION 10/02/2023 [facility] DATE CREATED AUTHOR AUTHOR'S ORGANIZ ATION 04/16/2024 [facility] DATE CREATED AUTHOR AUTHOR'S ORGANIZ ATION 06/01/2024 [facility] DATE CREATED AUTHOR AUTHOR'S ORGANIZ ATION 07/10/2024 [facility] DATE CREATED AUTHOR AUTHOR'S ORGANIZ ATION 08/21/2024 [facility] dical Specialists [facility] Care Teams (unrecognized sec tion and content) Hand Button Splitter Relationship Specialty Start Date End Date Grayson Hernandez MD PCP - General 04/17/19 Hand Button Splitter Relationship Specialty Start Date End Date Grayson Hernandez MD [address] [place] [address] PCP - [facility] 05/23/22 Grayson Hernandez MD [address] [place] [address] (Fax) PCP - General Family Medicine 10/12/22 Grayson Hernandez MD [address] [place] [address] (Fax) PCP - [employer] 05/23/23 Walker Monroy MD [address] [place] [address] Referring Physician Neurology 06/30/23 Tasia Irizarry MD [address] [place] [address] Referring Physician Cardiology 06/30/23 Kirstie Mcneil LISW-Carlos Eduardo [address] [address] [employer] Behavioral Health 06/30/23 Hand Button Splitter Relationship Specialty Start Date End Date Grayson Hernandez MD PCP - General 04/17/19 Hand Button Splitter Relationship Specialty Start Date End Date Grayson Hernandez MD PCP - General 04/17/19 Hand Button Splitter Relationship Specialty Start Date End Date Grayson Hernandez MD PCP - General 04/17/19 Hand Button Splitter Relationship Specialty Start Date End Date Grayson Hernandez MD [address] [phone] (Fax) PCP - [facility] 05/23/22 Grayson Hernandez MD [address] [phone] (Fax) PCP - General Family Medicine 10/12/22 Walker Monroy MD [address] [place] [address] Referring Physician Neurology 06/30/23 Tasia Irizarry MD [address] [place] [address] Referring Physician Cardiology 06/30/23 Kirstie Mcneil LISW-S [address] [address] [employer] Behavioral Health 06/30/23 Shannen Velazquez, ROGE Registered Nurse Family Medicine 11/09/23 Hand Button Splitter Relationship Specialty Start Date End Date Grayson Hernandez MD [address] [place] [address] (Fax) PCP - [facility] 05/23/22 Grayson Hernandez MD [address] [facility] [place] [address] PCP - General Family Medicine 10/12/22 Walker Monroy MD [address] [place] [address] Referring Physician Neurology 06/30/23 Tasia Irizarry MD [address] [place] [address] Referring Physician Cardiology 06/30/23 [facility] Mc[facility]il [facility]ISW[facility]S [address] [facility] [address] [place] [address] [employer] Behavioral Health 06/30/23 Shannen Velazquez, ROGE Registered Nurse Family Medicine 11/09/23 Team Status: Active Member Role Status Dates Grayson Hernandez MD Primary Care Provider Active Team Status: Inactive Member Role Status Dates Grayson Hernandez MD Primary Care Provider Active Start: March 08, 2024 End: March 08, 2024 Morgan Womack MD Attending Provider Active Start : March 08, 2024 End: March 08, 2024 Team Status: Inactive Member Role Status Dates Grayson Hernandez MD Primary Care Provider Active Start: April 10, 2024 End: April 10, 2024 Morgan Womack MD Attending Provider Active Start : April 10, 2024 End: April 10, 2024 Team Status: Inactive Member Role Status Dates Grayson Hernandez MD Primary Care Provider Active Start: April 10, 2024 End: April 11, 2024 Morgan Womack MD Attending Provider Active Start : April 10, 2024 End: April 11, 2024 Hand Button Splitter Relationship Specialty Start Date End Date Grayson Hernandez MD [address] [phone] (Fax) PCP - [employer] 05/23/22 05/22/24 Grayson Hernandez MD [address] [place] [phone] (Fax) PCP - General Family Medicine 10/12/22 Walker Monroy MD [address] [place] [address] Referring Physician Neurology 06/30/23 Tasia Irizarry MD [address] [place] [address] Referring Physician Cardiology 06/30/23 Kirstie Mcneil LISW-S [address] [address] [employer] Behavioral Health 06/30/23 Shannen Velazquez, RN Registered Nurse Family Medicine 11/09/23 Hand Button Splitter Relationship Specialty Start Date End Date Grayson Hernandez MD [address] [phone] (Fax) PCP - [employer]oted 05/23/22 05/22/24 Grayson Hernandez MD [address] [phone] (Fax) PCP - General Family Medicine 10/12/22 Walker Monroy MD [address] [place] [address] Referring Physician Neurology 06/30/23 Tasia Irizarry MD [address] [place] [address] Referring Physician Cardiology 06/30/23 Kirstie Mcneil LISW-S [address] [place] [address] [employer] Behavioral Health 06/30/23 Shannen Velazquez, ROGE Registered Nurse Family Medicine 11/09/23 Hand Button Splitter Relationship Specialty Start Date End Date Grayson Hernandez MD [address] [place] [address] (Fax) PCP - [facility]oted 05/23/22 05/22/24 Grayson Hernnadez MD [address] [place] [address] (Fax) PCP - General Family Medicine 10/12/22 Walker Monroy MD [address] [place] [address] Referring Physician Neurology 06/30/23 Tasia Irizarry MD [address] [place] [address] Referring Physician Cardiology 06/30/23 Kirstie Mcneil LISW-S [address] [place] [address] [employer] Behavioral Health 06/30/23 Shannen Velazquez, ROGE Registered Nurse Family Medicine 11/09/23 Hand Button Splitter Relationship Specialty Start Date End Date Grayson Hernandez MD [address] [place] [address] (Fax) PCP - [facility]oted 05/23/22 Grayson Hernandez MD [address] [place] [address] (Fax) PCP - General Family Medicine 10/12/22 Walker Monroy MD [address] [place] [address] Referring Physician Neurology 06/30/23 Tasia Irizarry MD [address] [place] [address] Referring Physician Cardiology 06/30/23 Kirstie Mcneil LISW-S [address] [address] [employer] Behavioral Health 06/30/23 Shannen Velazquez, RN Registered Nurse Family Medicine 11/09/23 Hand Button Splitter Relationship Specialty Start Date End Date Grayson Hernandez MD [address] [place] [address] (Fax) PCP - Devoted 05/23/22 Grayson Hernandez MD [address] [place] [address] (Fax) PCP - General Family Medicine 10/12/22 Walker Monroy MD [address] [place] [address] Referring Physician Neurology 06/30/23 Tasia Irizarry MD [address] [place] [address] Referring Physician Cardiology 06/30/23 Kirstie Mcneil LISW-S [address] [place] [address] [employer] Behavioral Health 06/30/23 Shannen Velazquez, RN Registered Nurse Family Medicine 11/09/23 Hand Button Splitter Relationship Specialty Start Date End Date Grayson Hernandez MD [address] [place] [address] (Fax) PCP - Devoted 05/23/22 Grayson Hernandez MD [address] [phone] (Fax) PCP - General Family Medicine 10/12/22 Walker Monroy MD [address] [place] [address] Referring Physician Neurology 06/30/23 Tasia Irizarry MD [address] [place] [address] Referring Physician Cardiology 06/30/23 Kirstie Mcneil LISW-S [address] [place] [address] [employer] Behavioral Health 06/30/23 Shannen Velazquez, RN Registered Nurse Family Medicine 11/09/23 Hand Button Splitter Relationship Specialty Start Date End Date Grayson Hernandez MD [address] [place] [phone] (Fax) PCP - General Family Medicine 10/12/22 Walker Monroy MD [address] [place] [address] Referring Physician Neurology 06/30/23 Tasia Irizarry MD [address] [place] [address] Referring Physician Cardiology 06/30/23 Kirstie Mcneil LISW-S [address] [place] [address] [employer] Behavioral Health 06/30/23 Shannen Velazquez, ROGE Registered Nurse Family Medicine 11/09/23 Hand Button Splitter Relationship Specialty Start Date End Date Grayson Hernandez MD [address] [place] [address] Way [facility] [address] [place] [address] (Fax) PCP - General Family Medicine 10/12/22 Walker Monroy MD [address] [place] [address] Referring Physician Neurology 06/30/23 Tasia Irizarry MD [address] [place] [address] Referring Physician Cardiology 06/30/23 Kirstie Mcneil LISW-S [address] [place] [address] [employer] Behavioral Health 06/30/23 Shannen Velazquez, ROGE Registered Nurse Family Medicine 11/09/23 Hand Button Splitter Relationship Specialty Start Date End Date Grayson Hernandez MD [address] [place] [address] (Fax) PCP - General Family Medicine 10/12/22 Walker Monroy MD [address] [place] [address] Referring Physician Neurology 06/30/23 Tasia Irizarry MD [address] [place] [address] Referring Physician Cardiology 06/30/23 Kirstie Mcneil LISW-S [address] [place] [address] [employer] Behavioral Health 06/30/23 Shannen Velazquez, ROGE Registered Nurse Family Medicine 11/09/23 Hand Button Splitter Relationship Specialty Start Date End Date Grayson Hernandez MD [address] [place] [address] PCP - General Family Medicine 10/12/22 Walker Monroy MD [address] [place] [address] Referring Physician Neurology 06/30/23 Tasia Irizarry MD [address] [place] [address] Referring Physician Cardiology 06/30/23 Kirstie Mcneil LISW-S [address] [place] [address] [employer] Behavioral Health 06/30/23 Shannen Velazquez, ROGE Registered Nurse Family Medicine 11/09/23 Hand Button Splitter Relationship Specialty Start Date End Date Grayson Hernandez MD [address] [place] [address] (Fax) PCP - General Family Medicine 12/21/21 Hand Button Splitter Relationship Specialty Start Date End Date Grayson Hernandez MD [address] [facility] [place] [address] (Fax) PCP - General Family Medicine 12/21/21 Name Effective Dates (start - stop) Status Members No Information Hand Button Splitter Relationship Specialty Start Date End Date Grayson Hernandez MD [address] [place] [address] (Fax) PCP - General Family Medicine 10/12/22 Walker Monroy MD [address] [place] [address] Referring Physician Neurology 06/30/23 Tasia Irizarry MD [address] [place] [address] Referring Physician Cardiology 06/30/23 Shannen Velazquez RN Registered Nurse Family Medicine 11/09/23 Hand Button Splitter Relationship Specialty Start Date End Date Grayson Hernandez MD [address] [place] [phone] (Fax) PCP - General Family Medicine 10/12/22 Walker Monroy MD [address] [place] [address] Referring Physician Neurology 06/30/23 Tasia Irizarry MD [address] [place] [address] Referring Physician Cardiology 06/30/23 Shannen Velazquez RN Registered Nurse Family Medicine 11/09/23 Hand Button Splitter Relationship Specialty Start Date End Date Grayson Hernandez MD [address] [facility] [address] [place] [address] PCP - General Family Medicine 10/12/22 Walker Monroy MD [address] [place] [address] Referring Physician Neurology 06/30/23 Tasia Irizarry MD [address] [place] [address] Referring Physician Cardiology 06/30/23 Shannen Velazquez RN Registered Nurse Family Medicine 11/09/23 Scheduled Active and Recently Administ ered Medications (unrecognized section and content) Medication Order 08/30/2023 08/31/2023 09/01/2023 sodium chloride flush 0.9 % injection 5-40 mL 5-40 mL, IntraVENous, EVERY 12 HOURS SCHEDULED (2 times per day), First dose on Jesica 09/01/23 at 2100, Until Discontinued, For Line Patency: Peripheral IV = 5 mL; Midline or Central Line = 10 mL/lumen. If following IV push medication, administer flush at same rate as the IV push. Flush volume is determined by type of infusion therapy being given. For non-viscous solutions use: Peripheral IV = 5 mL Midline or Central Line = 10 mL/lumen For viscous solutions (i.e. blood components, parenteral nutrition, contrast media, or after obtaining blood sample) use: Peripheral IV = 10 mL Midline or Central Line = 20 mL/lumen, Pre-Procedure(Cath) 2100 (Due) sodium chloride flush 0.9 % injection 5-40 mL 5-40 mL, IntraVENous, EVERY 12 HOURS SCHEDULED (2 times per day), First dose on Jesica 09/01/23 at 2100, Until Discontinued, For Line Patency: Peripheral IV = 5 mL; Midline or Central Line = 10 mL/lumen. If following IV push medication, administer flush at same rate as the IV push. Flush volume is determined by type of infusion therapy being given. For non-viscous solutions use: Peripheral IV = 5 mL Midline or Central Line = 10 mL/lumen For viscous solutions (i.e. blood components, parenteral nutrition, contrast media, or after obtaining blood sample) use: Peripheral IV = 10 mL Midline or Central Line = 20 mL/lumen, Recovery(Cath) 2100 (Due) PRN Medication Order 08/30/2023 08/31/2023 09/01/2023 0.9 % sodium chloride infusion IntraVENous, at 5-250 mL/hr, PRN, if patient receiving piggyback infusions and maintenance fluids are not ordered OR KVO fluids to protect IV site / prevent frequent line interruptions/ long duration, Starting on Jesica 09/01/23 at 1408, For piggyback infusion, administer at same rate as piggyback for a total of 25 mL. Enter 25 mL into dose field and piggyback rate into rate field of order. If piggyback is infusing at a rate less than 100 mL/hr, enter 25 mL into dose field and 100 mL/hr into rate field of order. For KVO fluids, enter rate of 20 mL/hr or less into rate field of order., Pre-Procedure(Cath) 0.9 % sodium chloride infusion IntraVENous, at 5-250 mL/hr, PRN, if patient receiving piggyback infusions and maintenance fluids are not ordered OR KVO fluids to protect IV site / prevent frequent line interruptions/ long duration, Starting on Jesica 09/01/23 at 1408, For piggyback infusion, administer at same rate as piggyback for a total of 25 mL. Enter 25 mL into dose field and piggyback rate into rate field of order. If piggyback is infusing at a rate less than 100 mL/hr, enter 25 mL into dose field and 100 mL/hr into rate field of order. For KVO fluids, enter rate of 20 mL/hr or less into rate field of order., Recovery(Cath) fentaNYL (SUBLIMAZE) injection (CANCELED) PRN, Starting on Jesica 09/01/23 at 1351, Until Jesica 09/01/23 at 1407, Intra-procedure(Cath) 1349 (Given - Provid er: Isabel R Buskirk, RN) midazolam (VERSED) injection (CANCELED) PRN, Starting on Jesica 09/01/23 at 1351, Until Jesica 09/01/23 at 1407, Intra-procedure(Cath) 1349 (Given - Provid er: Isabel Iyer RN)1352 (Given - Provider: Isabel Iyer RN)1354 (Given - Provider: Isabel Iyer RN)1359 (Given - Provider: Isabel Iyer RN)1401 (Given - Provider: Isabel Iyer RN) sodium chloride flush 0.9 % injection 5-40 mL 5-40 mL, IntraVENous, PRN, Starting on Jesica 09/01/23 at 1408, Until Discontinued, Line Care, After every IV line use, For Line Patency: Peripheral IV = 5 mL; Midline or Central Line = 10 mL/lumen. If following IV push medication, administer flush at same rate as the IV push. Flush volume is determined by type of infusion therapy being given. For non-viscous solutions use: Peripheral IV = 5 mL Midline or Central Line = 10 mL/lumen For viscous solutions (i.e. blood components, parenteral nutrition, contrast media, or after obtaining blood sample) use: Peripheral IV = 10 mL Midline or Central Line = 20 mL/lumen, Pre-Procedure(Cath) sodium chloride flush 0.9 % injection 5-40 mL 5-40 mL, IntraVENous, PRN, Starting on Jesica 24 at 1408, Until Discontinued, Line Care, After every IV line use, For Line Patency: Peripheral IV = 5 mL; Midline or Central Line = 10 mL/lumen. If following IV push medication, administer flush at same rate as the IV push. Flush volume is determined by type of infusion therapy being given. For non-viscous solutions use: Peripheral IV = 5 mL Midline or Central Line = 10 mL/lumen For viscous solutions (i.e. blood components, parenteral nutrition, contrast media, or after obtaining blood sample) use: Peripheral IV = 10 mL Midline or Central Line = 20 mL/lumen, Recovery(Cath) Goals (unrecognized section and content) Goals may be documented in a n alternate section FOR RECORDS PERTAINING TO PATIENTS WHO ARE OR HAVE BEEN ENROLLED IN A CHEMICAL DEPENDENCY/SUBSTANCEABUSE PROGRAM, SOME INFORMATION MAY BE OMITTED. This clinical summary was aggregated from multiple sources. Caution should be exercised in using it in the provision of clinical care. This summary normalizes information from multiple sources, and as a consequence, information in this document may materially change the coding, format and clinical context of patient data. In addition, data may be omitted in some cases. CLINICAL DECISIONS SHOULD BE BASED ON THE PRIMARY CLINICAL RECORDS. [facility] [employer] [facility]. provides no warranty or guarantee of the accuracy or completeness of information in this document.
--- NOTE | 2024-08-29 00:19 | ED.GENADUL1 ---
HPI HPI - General Adult General Chief complaint: Skin/Abscess/Foreign Body Stated complaint: FALL Time Seen by Provider: 08/29/24 00:05 History of Present Illness HPI narrative: 73-year-old female with a history of heart disease who is on Eliquis is brought to the emergency department by her for evaluation of bleeding from a laceration on the left side of her scalp. The patient fell at home and struck her head on a door frame sustaining this laceration. She did not lose consciousness. The patient does not wish to be here but her states that the bleeding did not stop and he was concerned. The patient also has right periorbital bruising and swelling over the bridge of her nose after falling while getting up to the bathroom on Tuesday. The patient's states she has not been falling a lot and he keeps track of her falling. She denies any chest pain or shortness of breath. She was given some Tylenol earlier in the evening and states her head does not really hurt that bad. According to her she is not confused or acting any different than usual although she is somewhat slow to respond. She denies any chest pain or shortness of breath but states she has had it in the past. She did have bypass surgery in 2019. She has no abdominal pain or back or neck pain. She denies any blurred vision despite her right eye being markedly swollen. She denies episodes of dizziness leading to her falls. Related Data Home Medications ?Medication ?Instructions ?Recorded ?Confirmed apixaban 5 mg tablet (Eliquis) 5 mg PO BID 10/23/22 12/11/22 atorvastatin 40 mg tablet 40 mg PO .QHS 10/23/22 12/11/22 carvedilol 12.5 mg tablet 6.25 mg PO BID 10/23/22 12/11/22 diltiazem HCl 120 mg 120 mg PO .QD 10/23/22 12/11/22 capsule,extended release 24 hr duloxetine 60 mg capsule,delayed 60 mg PO DAILY 10/23/22 11/19/22 release famotidine 20 mg tablet 20 mg PO .QHS PRN GERD 10/23/22 11/20/22 furosemide 40 mg tablet 40 mg PO DAILY 11/19/22 11/19/22 glipizide 5 mg tablet 15 mg PO DAILY 11/19/22 11/20/22 levothyroxine 100 mcg tablet 100 mcg PO DAILY 11/19/22 11/19/22 magnesium 200 mg tablet 200 mg PO DAILY 11/19/22 11/19/22 polyethylene glycol 3350 17 17 g PO DAILY PRN constipation 11/19/22 11/19/22 gram/dose oral powder (ClearLax) psyllium husk 0.52 gram capsule 0.52 g PO DAILY PRN constipation 11/19/22 11/19/22 (Fiber (psyllium husk)) trazodone 150 mg tablet 75 mg PO BEDTIME 11/19/22 11/20/22 aspirin 81 mg chewable tablet 81 mg PO DAILY 08/29/24 08/29/24 (Aspirin Childrens) Previous Rx's ?Medication ?Instructions ?Recorded ondansetron 4 mg disintegrating 4 mg PO Q6H PRN nausea and 12/11/22 tablet vomiting 4 days #4 tabs Allergies Allergy/AdvReac Type Severity Reaction Status Date / Time latex Allergy Unknown Unknown Verified 08/29/24 00:09 Opioid HPI Opioid Management Most Recent Opioid Data: Last Pain Scale 0 08/29/24 00:44 08/29/24 Last ED Pain Assessment 08/29/24 00:44 Review of Systems ROS Status of ROS 10 or more systems reviewed and unremarkable except as noted in history and below PFSH [facility] Medical History (Updated 08/29/24 @ 02:12 by Brynn Grijalva MD) Nausea ?R11.0 - Nausea (ICD-10) Depression ?F32.A - Depression, unspecified (ICD-10) Constipation ?K59.00 - Constipation, unspecified (ICD-10) Fatigue ?R53.83 - Other fatigue (ICD-10) Stroke ?I63.9 - Cerebral infarction, unspecified (ICD-10) GERD (gastroesophageal reflux disease) ?K21.9 - Gastro-esophageal reflux disease without esophagitis (ICD-10) Diabetes ?E11.9 - Type 2 diabetes mellitus without complications (ICD-10) Surgical History (Updated 11/19/22 @ 19:41 by Caitlin Delong) History of open heart surgery ?Z98.890 - Other specified postprocedural states (ICD-10) Family History (Updated 11/19/22 @ 22:06 by Maya Morrissey) Mother Family history of stroke Social History Smoking status: Never smoker Exam Narrative Exam Narrative: Vital signs and Nursing Notes reviewed: Patient is afebrile. She is mildly bradycardic with a pulse of 58, blood pressure is on the lower end of normal at 101/62, she is not hypoxic with pulse ox of 98% on room air General: Awake, alert, oriented, no acute distress, lying comfortably on the stretcher-GCS 15 HEENT: Normocephalic, there is an approximately 2.5 cm laceration at the left lateral posterior occipital aspect of the scalp with mild active bleeding, there is right periorbital ecchymosis and mild swelling over the bridge of the nose with tenderness and healing superficial laceration in this area-pupils are normal. Vision is grossly intact despite the right periorbital swelling. There is no sign of any entrapment or subconjunctival hemorrhage. Neck: Supple, no midline bony vertebral tenderness or step-off Chest: Lungs are clear to auscultation with good air entry, there is no wheezing rhonchi or rales appreciated no accessory muscle use, patient is speaking in complete sentences-no chest wall tenderness to palpation CVS: Irregular rate and rhythm S1-S2, no murmurs rubs or gallops, pulses are brisk and equal bilaterally ABD: Soft, nondistended, nontender, no rebound guarding or rigidity, bowel sounds are normal, no pulsatile masses appreciated Extremities: Moving all extremities, no lower extremity tenderness or swelling noted, negative Homans' sign, pulses are brisk and equal bilaterally Skin: Normal in appearance without rash,pallor, petechiae or purpura Neuro: No focal deficits, speech is clear, vision is intact, upper and lower extremity strength and sensation is intact Constitutional Vital Signs, click to edit/add: Last Vital Signs Temp 97.7 F 08/29/24 00:04 Pulse 58 L 08/29/24 00:04 Resp 18 08/29/24 00:04 BP 101/62 08/29/24 00:04 Pulse Ox 98 08/29/24 00:44 O2 Del Method Room Air 08/29/24 00:44 Course Vital Signs Vital signs: Vital Signs Temperature 97.7 F 08/29/24 00:04 Pulse Rate 58 L 08/29/24 00:04 Respiratory Rate 18 08/29/24 00:04 Blood Pressure 101/62 08/29/24 00:04 Pulse Oximetry 98 08/29/24 00:04 Oxygen Delivery Method Room Air 08/29/24 00:04 Temperature 97.7 F 08/29/24 00:04 Pulse Rate 58 L 08/29/24 00:04 Respiratory Rate 18 08/29/24 00:04 Blood Pressure 101/62 08/29/24 00:04 Pulse Oximetry 98 08/29/24 00:44 Oxygen Delivery Method Room Air 08/29/24 00:44 Medical Decision Making MDM Narrative Medical decision making narrative: 73-year-old female who is on Eliquis and has a history of diabetes, hypertension and heart disease is brought to the emergency department by her after she fell earlier striking the left side of her head on a door frame sustaining approximately 2.5 cm laceration to the left lateral posterior occipital aspect of her scalp. The states they could not get the bleeding to stop so he brought her to the emergency department. The patient is adamant that she is fine. She also has a resolving right periorbital injury where she fell on Tuesday while getting up to use the bathroom. The states she has not really been following that often. She denies any chest pain or shortness of breath. Her neuroexam is normal. Despite the right periorbital ecchymosis her vision is normal on the right and she does not have any subconjunctival hemorrhages. She was agreeable to labs in light of her history of diabetes and renal insufficiency. CT scan of the brain is negative for acute findings. Once that report was available her laceration was closed with martell. She has a normal white count and hemoglobin. Troponin is normal at 11. LFTs are normal. Electrolytes are normal with an elevated BUN and creatinine at 33 and 2.11. The patient is currently seeing a networking administrator and has a follow-up appointment with him next month. She was medicated with Tylenol. She has remained hemodynamically stable and neurologically stable in the emergency department. CT scan of the cervical spine and facial bones was ordered. CT scan of the cervical spine shows multilevel disc space narrowing and facet arthropathy with no acute fracture. CT scan of the facial bones shows a mildly depressed nasal bone fracture with normal-appearing mandible and soft tissue swelling. The results of the CT scan of the cervical spine and nose were discussed with the patient and her prior to them being discharged. Lab Data Lab results reviewed: Yes I reviewed the patient's lab results Labs: Lab Results 08/29/24 Range/Units 00:30 WBC 8.2 (4.0-11.0) 10^3/uL RBC 3.61 L (4.20-5.40) 10^6/uL Hgb 10.7 L (12.0-16.0) g/dL Hct 32.1 L (36.0-48.0) % MCV 88.9 (81.0-99.0) fL MCH 29.6 (26.7-34.0) pg MCHC 33.3 (29.9-35.2) g/dL RDW 11.6 (11.0-15.0) % Plt Count 226 (150-450) 10^3/uL MPV 8.8 L (9.5-13.5) fL Neut % (Auto) 52.9 (43.0-75.0) % Lymph % (Auto) 36.2 (20.5-60.0) % Tucker % (Auto) 7.2 (1.7-12.0) % Eos % (Auto) 2.6 (0.9-7.0) % Baso % (Auto) 0.9 (0.2-2.0) % Neut # (Auto) 4.4 (1.4-6.5) 10^3/uL Lymph # (Auto) 3.0 (1.2-3.8) 10^3/uL Tucker # (Auto) 0.6 (0.3-0.8) 10^3/uL Eos # (Auto) 0.2 (0.0-0.7) 10^3/uL Baso # (Auto) 0.1 (0.0-0.1) 10^3/uL Abs Immat Gran (auto) 0.02 (0.00-0.03) 10^3/uL Imm/Tot Granulo (auto) 0.2 (0.0-0.5) % Sodium 138 (136-145) mmol/L Potassium 4.3 (3.5-5.1) mmol/L Chloride 101 (98-107) mmol/L Carbon Dioxide 27.9 (21.0-32.0) mmol/L Anion Gap 13.4 BUN 33.0 H (7.0-18.0) mg/dL Creatinine 2.11 H (0.55-1.02) mg/dL Est GFR ( Amer) 28 L (>=60 mL/min/1.73m^2) Est GFR (Non-Af Amer) 23 L (>=60 mL/min/1.73m^2) BUN/Creatinine Ratio 15.6 Glucose 132 H (74-106) mg/dL Calcium 8.9 (8.5-10.1) mg/dL Total Bilirubin 0.4 (0.2-1.0) mg/dL AST 20 (15-37) U/L ALT 34 (14-59) U/L Alkaline Phosphatase 112 (46-116) U/L Troponin I High Sens 11.0 (4.0-51.3) pg/mL Total Protein 7.0 (6.4-8.2) g/dL Albumin 3.4 (3.4-5.0) g/dL Globulin 3.6 g/dL Albumin/Globulin Ratio 0.9 Discharge Plan Discharge Chief Complaint: Skin/Abscess/Foreign Body Clinical Impression: Fall from standing, Laceration of scalp, Chronic renal disease, Stapled skin wound, Fracture of nasal bone Patient Disposition: Home, Self-Care Time of Disposition Decision: 02:04 Condition: Good Prescriptions / Home Meds: No Action Eliquis 5 mg tablet 5 mg PO BID atorvastatin 40 mg tablet 40 mg PO .QHS carvedilol 12.5 mg tablet 6.25 mg PO BID diltiazem HCl 120 mg capsule,extended release 24hr 120 mg PO .QD duloxetine 60 mg capsule,delayed release(DR/EC) 60 mg PO DAILY famotidine 20 mg tablet 20 mg PO .QHS PRN (Reason: GERD) furosemide 40 mg tablet 40 mg PO DAILY levothyroxine 100 mcg tablet 100 mcg PO DAILY glipizide 5 mg tablet 15 mg PO DAILY trazodone 150 mg tablet 75 mg PO BEDTIME magnesium 200 mg tablet 200 mg PO DAILY polyethylene glycol 3350 [ClearLax] 17 gram/dose powder 17 g PO DAILY PRN (Reason: constipation) psyllium husk [Fiber (psyllium husk)] 0.52 gram capsule 0.52 g PO DAILY PRN (Reason: constipation) ondansetron 4 mg tablet,disintegrating 4 mg PO Q6H PRN (Reason: nausea and vomiting) 4 Days Qty: 4 0RF aspirin [Aspirin Childrens] 81 mg tablet,chewable 81 mg PO DAILY Print Language: Maori Instructions: Laceration (ED), Chronic Kidney Disease (ED), Fall Prevention for Older Adults (ED) Additional Instructions: Martell can be removed in 5 to 7 days. Return to the emergency department for redness, swelling, increased bleeding, worsening headache confusion or any concerns. Referrals: GÓMEZ HERNANDEZ [Primary Care Provider] - 1 week Procedures ED Procedure Instructions Procedures Procedures: Procedure note: Scalp laceration repair; the scalp was cleaned with sterile saline and wound edges were infiltrated with 1% lidocaine. When anesthesia was obtained 4 martell were placed into the laceration with good wound edge approximation. Patient tolerated procedure well
[2024-08-29 00:39] LABS: Basophils Absolute Auto 0.1 10^3/uL (0.0-0.1); Basophils Percent Auto 0.9 % (0.2-2.0); Eosinophils Absolute Auto 0.2 10^3/uL (0.0-0.7); Eosinophils Percent Auto 2.6 % (0.9-7.0); Hematocrit 32.1 % (36.0-48.0); Hemoglobin 10.7 g/dL (12.0-16.0); Immature Granulocytes Abs Auto 0.02 10^3/uL (0.00-0.03); Immature Granulocytes Pct Auto 0.2 % (0.0-0.5); Lymphocytes Percent Auto 36.2 % (20.5-60.0); Mean Corpuscular HGB Conc 33.3 g/dL (29.9-35.2); Mean Corpuscular Hemoglobin 29.6 pg (26.7-34.0); Mean Corpuscular Volume 88.9 fL (81.0-99.0); Mean Platelet Volume 8.8 fL (9.5-13.5); Monocytes Absolute Auto 0.6 10^3/uL (0.3-0.8); Monocytes Percent Auto 7.2 % (1.7-12.0); Neutrophils Absolute Auto 4.4 10^3/uL (1.4-6.5); Neutrophils Percent Auto 52.9 % (43.0-75.0); Platelet Count 226 10^3/uL (150-450); Red Blood Count 3.61 10^6/uL (4.20-5.40); Red Cell Distribution Width 11.6 % (11.0-15.0); White Blood Count 8.2 10^3/uL (4.0-11.0)
--- NOTE | 2024-08-29 00:43 | PC.NURSE ---
Pt presents to ER with her after falling at home and hitting her head on door corner Pt presents in a wheelchair with a very swollen and bruised right eye with a healed laceration to the bridge of her nose Pt has fresh wound on the occipital portion of her skull Pt's states she does take blood thinner She fell on Tuesday causing the damage to her face, and tripped tonight striking her head on the corner of a doorway causing the laceration to the back of her head Pt is A&Ox4 and irritated about being here Pt repeatedly stating she is fine, she does not need sutures or jennie, her vitals and labs will all be perfect but she wants to go home This nurse spent time speaking with pt and informing her of the risks of head injuries while on blood thinners 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
[2024-08-29 00:44] VITALS: O2SAT 98
[2024-08-29 00:56] LABS: Alanine Aminotransferase 34 U/L (14-59); Albumin Globulin Ratio 0.9; Albumin Level 3.4 g/dL (3.4-5.0); Alkaline Phosphatase 112 U/L (46-116); Anion Gap 13.4; Aspartate Amino Transferase 20 U/L (15-37); BUN Creatinine Ratio 15.6; Bilirubin Total 0.4 mg/dL (0.2-1.0); Calcium 8.9 mg/dL (8.5-10.1); Carbon Dioxide 27.9 mmol/L (21.0-32.0); Chloride 101 mmol/L (98-107); Estimated GFR (African America 28 (>=60 mL/min/1.73m^2); Estimated GFR (Non-African Ame 23 (>=60 mL/min/1.73m^2); Globulin 3.6 g/dL; Glucose 132 mg/dL (74-106); Potassium 4.3 mmol/L (3.5-5.1); Sodium 138 mmol/L (136-145)
[2024-08-29] MEDS: LIDOCAINE HCL 1% 100 MG/10 ML MDV INJ (01:28)
== END 2024-08-29 02:21 | disposition home or self-care (01) ==
PROVIDERS: Emergency Provider Emergency Medicine; PCP Family Medicine
DX: S01.01XA Laceration without foreign body of scalp, initial encounter (principal); S02.2XXA Fracture of nasal bones, initial encounter for closed fracture; Z79.01 Long term (current) use of anticoagulants; I51.9 Heart disease, unspecified; Z95.1 Presence of aortocoronary bypass graft; Z79.84 Long term (current) use of oral hypoglycemic drugs; I12.9 Hypertensive chronic kidney disease with stage 1 through stage 4 chronic kidney disease, or unspecified chronic kidney disease; E11.22 Type 2 diabetes mellitus with diabetic chronic kidney disease; N18.9 Chronic kidney disease, unspecified; W18.39XA Other fall on same level, initial encounter
CPT/HCPCS: 12001; 36415; 70450; 70486; 72125; 80053; 81001; 84484; 85025; 99284

== ENCOUNTER 2024-10-08 16:23 | Outpatient (OUT) | payer MEDICARE, SELFPAY ==
[2024-10-08 17:02] LABS: Hematocrit 37.2 % (36.0-48.0); Hemoglobin 12.4 g/dL (12.0-16.0); Mean Corpuscular HGB Conc 33.3 g/dL (29.9-35.2); Mean Corpuscular Hemoglobin 29.7 pg (26.7-34.0); Mean Platelet Volume 8.9 fL (9.5-13.5); Platelet Count 231 10^3/uL (150-450); Red Blood Count 4.18 10^6/uL (4.20-5.40); Red Cell Distribution Width 12.1 % (11.0-15.0); White Blood Count 7.1 10^3/uL (4.0-11.0)
[2024-10-08 17:20] LABS: Albumin Level 3.7 g/dL (3.4-5.0); Anion Gap 12.2; BUN Creatinine Ratio 14.1; Calcium 9.7 mg/dL (8.5-10.1); Carbon Dioxide 29.8 mmol/L (21.0-32.0); Chloride 103 mmol/L (98-107); Estimated GFR (African America 31 (>=60 mL/min/1.73m^2); Estimated GFR (Non-African Ame 25 (>=60 mL/min/1.73m^2); Glucose 245 mg/dL (74-106); Magnesium 2.1 mg/dL (1.8-2.4); Phosphorus 4.3 mg/dL (2.6-4.7); Sodium 141 mmol/L (136-145); Uric Acid 5.4 mg/dL (2.6-6.0)
[2024-10-08 17:21] LABS: Percent Iron Saturation 21.3 %
[2024-10-09 13:05] LABS: Bilirubin Urine NEGATIVE (NEGATIVE); Blood Urine NEGATIVE (NEGATIVE); Clarity Urine CLOUDY (CLEAR); Color Urine LT. YELLOW (YELLOW); Glucose Urine UA NEGATIVE (NEGATIVE); Ketones Urine NEGATIVE (NEGATIVE); Leukocyte Esterase Urine MODERATE (NEGATIVE); Nitrite Urine NEGATIVE (NEGATIVE); Protein Urine NEGATIVE (NEG/TRACE); Specific Gravity Urine 1.015 (1.005-1.025); Urobilinogen Urine 0.2 EU/dL (0.2-1.0)
[2024-10-09 13:08] LABS: Creatinine Urine Random 87.74 mg/dL (20.00-300.00); Protein Creatinine Ratio Urine 0.34; Total Protein Urine Random 29.4 mg/dL (<=11.9)
[2024-10-09 13:13] LABS: Bacteria Urine MODERATE #/HPF (NONE SEEN); WBC Urine >100 #/HPF (NONE SEEN)
[2024-10-09 13:14] LABS: Cast Seen? SEEN #/LPF (NONE SEEN); Crystals Seen? None Seen #/HPF (None Seen); Hyaline Casts Urine FEW; Mucus Urine NONE SEEN (NONE SEEN); Squamous Epithelial Cell Urine FEW #/LPF (NONE/RARE); Transitional Epi Cells Urine FEW #/LPF (NONE SEEN)
[2024-10-10 15:12] LABS: PTH, Intact 56 pg/mL (15-65)
== END 2024-10-08 16:24 | disposition home or self-care (01) ==
LOC: LAB 16:23
PROVIDERS: PCP Family Medicine; Visit Provider Internal Medicine
DX: I12.9 Hypertensive chronic kidney disease with stage 1 through stage 4 chronic kidney disease, or unspecified chronic kidney disease (principal); N18.9 Chronic kidney disease, unspecified; D63.1 Anemia in chronic kidney disease; N25.81 Secondary hyperparathyroidism of renal origin; E11.22 Type 2 diabetes mellitus with diabetic chronic kidney disease; N18.4 Chronic kidney disease, stage 4 (severe)
CPT/HCPCS: 36415; 80069; 81001; 82306; 82570; 82728; 83540; 83550; 83735; 83970; 84156; 84550; 85027

== ENCOUNTER 2024-11-06 12:42 | Outpatient (OUT) | payer MEDICARE, SELFPAY ==
--- NOTE | 2024-11-06 13:15 | ECG_ITS ---
[facility] Test Date: 2024-11-06 Pat Name: DIONICIO DELANEY Department: Room: - Gender: Female [employer] Chef: : [id number] Requested By: ROSA IRIZARRY Order Number: [id number] Reading MD: SUNDEEP RAY Measurements Intervals [place] Rate: 54 P: 80 RI: 204 QRS: 56 QRSD: 88 T: 64 QT: 433 QTc: 412 Interpretive Statements SINUS BRADYCARDIA Non specific ST changes Compared to ECG 05/02/2024 10:55:55 T-wave abnormality no longer present Electronically Signed On 11-06-2024 15:22:24 EDT by SUNDEEP RAY
[2024-11-06 13:20] LABS: Basophils Absolute Auto 0.1 10^3/uL (0.0-0.1); Basophils Percent Auto 0.9 % (0.2-2.0); Eosinophils Absolute Auto 0.3 10^3/uL (0.0-0.7); Eosinophils Percent Auto 3.6 % (0.9-7.0); Hematocrit 33.2 % (36.0-48.0); Hemoglobin 11.1 g/dL (12.0-16.0); Immature Granulocytes Abs Auto 0.02 10^3/uL (0.00-0.03); Immature Granulocytes Pct Auto 0.2 % (0.0-0.5); Lymphocytes Absolute Auto 2.5 10^3/uL (1.2-3.8); Lymphocytes Percent Auto 31.6 % (20.5-60.0); Mean Corpuscular HGB Conc 33.4 g/dL (29.9-35.2); Mean Corpuscular Hemoglobin 29.9 pg (26.7-34.0); Mean Corpuscular Volume 89.5 fL (81.0-99.0); Mean Platelet Volume 8.7 fL (9.5-13.5); Monocytes Absolute Auto 0.6 10^3/uL (0.3-0.8); Neutrophils Absolute Auto 4.6 10^3/uL (1.4-6.5); Neutrophils Percent Auto 56.7 % (43.0-75.0); Platelet Count 224 10^3/uL (150-450); Red Blood Count 3.71 10^6/uL (4.20-5.40); White Blood Count 8.1 10^3/uL (4.0-11.0)
[2024-11-06 13:41] LABS: Alanine Aminotransferase 42 U/L (14-59); Albumin Level 3.8 g/dL (3.4-5.0); Alkaline Phosphatase 111 U/L (46-116); Anion Gap 11.1; Aspartate Amino Transferase 24 U/L (15-37); BUN Creatinine Ratio 21.9; Bilirubin Total 0.4 mg/dL (0.2-1.0); Calcium 9.5 mg/dL (8.5-10.1); Carbon Dioxide 30.5 mmol/L (21.0-32.0); Chloride 105 mmol/L (98-107); Chol HDL Ratio 1.9; Cholesterol 140 mg/dL (<=200); Estimated GFR (African America 34 (>=60 mL/min/1.73m^2); Estimated GFR (Non-African Ame 28 (>=60 mL/min/1.73m^2); Globulin 3.7 g/dL; Glucose 117 mg/dL (74-106); HDL Cholesterol 74 mg/dL (40-60); Potassium 4.6 mmol/L (3.5-5.1); Sodium 142 mmol/L (136-145); TSH W/ REFLEX FT4 0.525 uIU/mL (0.358-3.740); Total Protein 7.5 g/dL (6.4-8.2); Triglycerides 124 mg/dL (<=150); VLDL CHOLESTEROL 24.8 mg/dL
[2024-11-06 13:53] LABS: Magnesium 3.1 mg/dL (1.8-2.4)
== END 2024-11-06 12:43 | disposition home or self-care (01) ==
LOC: CARD 12:43
PROVIDERS: PCP Family Medicine
DX: I05.0 Rheumatic mitral stenosis (principal); I25.10 Atherosclerotic heart disease of native coronary artery without angina pectoris; E78.5 Hyperlipidemia, unspecified; R00.2 Palpitations; E55.9 Vitamin D deficiency, unspecified; R06.02 Shortness of breath
CPT/HCPCS: 36415; 80053; 80061; 82306; 83735; 84443; 85025; 93005

== ENCOUNTER 2025-02-09 09:58 | Outpatient (OUT) | payer MEDICARE, SELFPAY ==
--- OUTSIDE RECORDS SUMMARY | 2025-02-09 10:03 | XMS_ITS | Clinical Summary ---
Author Organization [facility] Address [address], [address] [place] [address] Care Team Providers Care Psychologist Experimental Name Role Phone Grayson Espitia MD Primary Care Provider [phone] Allergies Active Allergy Reactions Criticality Noted Date Comments Latex Anaphylaxis High 05/10/2019 Eyes swell shut, rash Medications atorvastatin (LIPITOR) 40 MG tablet Take 1 tablet by mouth nightly 30 tablet 3 07/24/2019 Active ondansetron (ZOFRAN) 4 MG tablet Take 1 tablet by mouth every 8 hours as needed for Nausea or Vomiting Active furosemide (LASIX) 40 MG tablet Take 1 tablet by mouth daily Active vitamin D (CHOLECALCIFERO L) 50 MCG (1999) TABS tablet Take 1 tablet by mouth daily Active acetaminophen (TYLENOL) 500 MG tablet Take 1 tablet by mouth every 6 hours as needed for Pain Active DULoxetine (CYMBALTA) 60 MG extended release capsule TAKE 1 CAPSULE BY MOUTH ONCE DAILY 08/16/2021 Active Levothyroxine Sodium 88 MCG CAPS 88 mcg 07/16/2021 Active psyllium 0.52 g capsule Psyllium Husk (Metamucil) 0.52 gram Capsule Active 0.52 GM PO Daily November 19, 2020 11:14am 11/19/2020 Active UNABLE TO FINDIndications :ther-biotic complete Indications: ther-biotic complete Active calcium carbonate (OSCAL) 500 MG TABS tablet Take 1 tablet by mouth daily Active UNABLE TO FINDIndications :eothyrox Indications: eothyrox Active aspirin 81 MG EC tablet Take 1 tablet by mouth daily Active donepezil (ARICEPT) 10 MG tablet Take 1 tablet by mouth nightly Active ALPRAZolam (XANAX) 0.25 MG tablet 1 tablet 3 TIMES DAILY (route: oral) 01/10/2023 Active glipiZIDE (GLUCOTROL) 10 MG tablet 1 tablet 2 TIMES DAILY (route: oral) 01/10/2023 Active Dulaglutide (TRULICITY SC) Inject 2.5 mg into the skin once a week Active dilTIAZem (CARDIZEM CD) 180 MG extended release capsule Take 1 capsule by mouth daily 08/11/2023 Active loratadine (CLARITIN) 10 MG tablet Take 1 tablet by mouth daily Active Iron, Ferrous Sulfate, 325 (65 Fe) MG TABS Take by mouth Active ELIQUIS 5 MG TABS tablet Take 1 tablet by mouth twice daily 180 tablet 12/06/2024 Active carvedilol (COREG) 6.25 MG tablet Take 1 tablet by mouth 2 times daily 180 tablet 3 12/11/2024 Active Active Problems Problem Noted Date Diagnosed Date Mild mitral stenosis by prior echocardiogram 03/2024 Encephalopathy 07/07/2019 Acute cerebral infarction 07/07/2019 Seizure 07/07/2019 CAD, multiple vessel 07/03/2019 Encephalopathy, unspecified Ischemic stroke Chronic a-fib Anticoagulated Acute postoperative respiratory failure Cervical stenosis of spinal canal Encounters Date Type Department Care Team Description 12/10/2024 Refill [facility] [employer] [address] [place] [address] Anshul Harper MD Medication Refill 12/06/2024 Refill [facility] [employer] Machine [employer] [address] [place] [address] Anshul Harper MD Medication Refill 11/28/2024 Results Follow-Up [facility] [employer] [address] [place] [address] Keerthi Patel, DRUG ABUSE RESISTANCE EDUCATION OFFICER - INSURANCE ACCOUNT MANAGER 11/21/2024 Abstract [facility] [employer]ruding Machine Operator [address] [place] [address] Anshul Harper MD 11/15/2024 1:30 PM EDT Office Visit [facility] Extruding Machine Operator [address] [place] [address] Anshul Harper MD Hypermagnesemia (Primary Dx); Mitral valve stenosis, unspecified etiology; CAD, multiple vessel; Hyperlipidemia, unspecified hyperlipidemia type; Palpitations; Vitamin D deficiency; SOB (shortness of breath); Chronic a-fib (HCC); Acute cerebral infarction (HCC) 11/15/2024 12:15 PM EDT - 11/15/2024 11:59 PM EDT Hospital Encounter [facility] Laboratory [address] [place] [address] Hypermagnesemia Discharge Disposition: Home or Self Care 11/13/2024 Abstract [facility] Extruding Machine Operator [address] [place] [address] Aubrie Camarena from Last 3 Months Family History Medical History Relation Name Comments Alcohol Abuse Brother 2 Kidney Disease Brother 2 Heart Disease Father Other Mother car accident Stroke Mother Relation Name Status Comments Brother 1 Alive Brother 2 Father Maternal Grandfather Maternal Grandmother Mother Paternal Grandfather Paternal Grandmother Sister 1 Alive Sister 2 Alive Sister 3 Alive Sister 4 Social History Tobacco Use Types Packs/Day Years Used Date Smoking Tobacco: Never Smokeless Tobacco: Never Tobacco Cessation:Counseling Given: Not Answered Alcohol Use Standard Drinks/Week Comments Never 0 (1 standard drink = 0.6 oz pur e alcohol) AUDIT-C Answer Date Recorded Frequency of Alcohol Consumption Never 05/10/2019 Average Number of Drinks Not on file 019 Frequency of Binge Drinking Not on file 04/22 Comments No Sex and Gender Information Value Date Recorded Sex Assigned at Not on file Legal Sex Female 10:09 AM EST Gender Identity Not on file Sexual Orientation Not on file Last Filed Vital Signs Vital Sign Reading Time Taken Comments Blood Pressure 113/46 11/15/2024 12:51 PM EDT Pulse 63 11/15/2024 12:51 PM EDT Temperature 36 C (96.8 F) 09/01/2023 2:10 PM EDT Respiratory Rate 16 09/01/2023 2:45 PM EDT Oxygen Saturation 100% 11/15/2024 12:51 PM EDT Inhaled Oxygen Concentration - - Weight 62.6 kg (138 lb) 11/06/2024 11:48 AM EDT Height 157.5 cm (5' 2 ) 11/06/2024 11:48 AM EDT Body Mass Index 25.24 11/06/2024 11:48 AM EDT Plan of Treatment Upcoming Encounters Date Type Department Care Team (Late st Contact Info) Description 05/30/2025 11:00 AM EST Office Visit [facility] Extruding Machine Operator [address] [place] [address] Anshul Harper MD [address] [place] [address] 6 month f/u lab/ekg Health Maintenance Due Date Last Done Comments Depression Screen 1960 DTaP/Tdap/Td vaccine (1 - Tdap) 12/09/1967 Pneumococcal 50+ years Vaccine (2 of 2 - PCV20 or PCV21) 12/20/2017 12/20/2016 Lipids 12/04/2023 12/03/2022, 01/21, 10/03/2019, Additional history exists Respiratory Syncytial Virus (RSV) or age 60 yrs+ (1 - 1-dose 75+ series) 12/09/2023 Annual Wellness Visit (Medicare Advantage) 05/23/2024 Flu vaccine (#1) 12/21/2024 06/23/2021, 02/2020, 02/28/2020, Additional history exists COVID-19 Vaccine ( season) 2025 03/19/2022, 08/11/2021, 04/27/2021, Additional history exists Hepatitis C screen Completed 07/05/2019 A1C test (Diabetic or Prediabetic) Discontinued 01/31/2020, 06/25/2019, 05/10/2019 Breast cancer screen Discontinued 05/26/2021, 05/26/19 DEXA (modify frequency per FRAX score) Completed 05/26/2021 Shingles vaccine Completed 11/21/2023, 06/24/2023 Hepatitis A vaccine Aged Out No longe r eligible based on patient's age to complete this topic Hepatitis B vaccine Aged Out No longe r eligible based on patient's age to complete this topic Hib vaccine Aged Out No longer eligi ble based on patient's age to complete this topic Meningococcal (ACWY) vaccine Aged Out No longer eligible based on patient's age to complete this topic Meningococcal B vaccine Aged Out No l onger eligible based on patient's age to complete this topic Polio vaccine Aged Out No longer elig ible based on patient's age to complete this topic Medical Devices Implanted Type Area Office Services Specialist Device Identifier Shelf Expiration Date Model / Serial / Lot System Sternalock 360 Plates W/Bands Implanted:Qty: 1 on 07/03/2019 by Juan A Vance MD at [facility] Screw/Pl ate/Nail /Jerad N/A: [employer]-PMM [id number] / / Screw Sternal Lock 2.4 X 12mm Implanted:Qty: 8 on 07/03/2019 by Juan A Vance MD at [facility] Screw/Pl ate/Nail /Jerad N/A: [employer]-PM [id number] / / Screw Lk Sternalock 2.4x14mm Implanted:Qty: 8 on 07/03/2019 by Juan A Vance MD at [facility] Screw/Pl ate/Nail /Jerad N/A: [employer]-PMM [id number] / / System Sternalock 360 Plates W/Bands Implanted:Qty: 1 on 07/04/2019 by Juan A Vance MD at [facility] Screw/Pl ate/Nail /Jerad N/A: Chest [employer]-PMM [id number] / / Description:NO CHARGE PER CR IS ANGELY WILKINSON Screw Sternal Lock 2.4 X 12mm Implanted:Qty: 12 on 07/04/2019 by Juan A Vance MD at [facility] Screw/Pl ate/Nail /Jerad N/A: Chest [employer]-PMM [id number] / / Description:NO CHARGE PER CR IS NYDIA WILKINSON Screw Lk Sternalock 2.4x14mm Implanted:Qty: 4 on 07/04/2019 by Juan A Vance MD at [facility] Screw/Pl ate/Nail /Jerad N/A: Chest [employer]-[facility] [id number] / / Description:NO CHARGE PER CR IS ZAIRA AND REP. HARITHA WILKINSON Jeremie-Valve Aortic Intuity Pericard 21mm - [id number] Implanted:Qty: 1 on 07/03/2019 by Juan A Vance MD at [facility] Valve:Ao rtic/[facility] hanical/ Tissue N/A: Heart [employer] JOSIAH-PMM 09/20/2020 [id number] / [id number] / N/A Explanted Type Area Office Services Specialist Device Identifier Shelf Expiration Date Model / Serial / Lot System Sternalock 360 Plates W/Bands Explanted:Qty: 1 on 07/03/2019 by Juan A Vance MD at [facility] Screw/Pl ate/Nail /Jerad N/A: Stern[employer]-[facility] [id number] / / Description:3 BANDS, 3 PLATE S EXPLANTED Screw Sternal Lock 2.4 X 12mm Explanted:Qty: 8 on 07/03/2019 by Juan A Vance MD at [facility] Screw/Pl ate/Nail /Jerad N/A: [employer]-[facility] [id number] / / Screw Lk Sternalock 2.4x14mm Explanted:Qty: 8 on 07/03/2019 by Juan A Vance MD at [facility] Screw/Pl ate/Nail /Jerad N/A: Stern[employer]-[facility] [id number] / / Procedures Procedure Name Priority Date/Time Associated Diagnosis Comments MAGNESIUM Routine 11/15/2024 12:18 PM EDT Hypermagnesemia LIPID PANEL Routine 12/03/2022 Palpitations CAD, multiple vessel Hyperlipidemia, unspecified hyperlipidemia type Vitamin D deficiency Chronic a-fib (HCC) HEMOGLOBIN A1C Routine 01/31/2020 Kidney insufficiency Hypertension, unspecified type Shortness of breath Hyperlipidemia, unspecified hyperlipidemia type Vitamin D deficiency disease Other specified diabetes mellitus with other specified complication, unspecified whether termite treater helper insulin use (HCC) HEPATITIS PANEL, ACUTE [employer] Label Print 07/05/2019 12:28 PM EST from Last 3 Months or Most Recently Relevant to Health Maintenance Results * Magnesium (11/15/2024 12:18 PM EDT) Magnesium 2.2 1.6 - 2.6 mg/dL 11/15/2024 12:18 PM EDT [facility] [employer] [facility] Blood BLOOD SPECIMEN / Unknown 11/15/2024 12:18 PM EDT 11/15/2024 12:20 PM EDT Keerthi Patel DRUG ABUSE RESISTANCE EDUCATION OFFICER - INSURANCE ACCOUNT MANAGER CHEMISTRY ORDERABLES Final Result [facility] [address] [place] [address], [facility] [phone] * Lipid Panel (12/03/2022) BLOOD SPECIMEN / Unknown Anshul Harper MD CHEMISTRY ORDERABLES Final Res ult * Hemoglobin A1C (01/31/2020) BLOOD SPECIMEN / Unknown Anshul Harper MD CHEMISTRY ORDERABLES Final Res ult * HEPATITIS PANEL, ACUTE (07/05/2019 12:28 PM EST) Pathologist [facility] Hepatitis B Surface Ag NONREACTIVE NONREACTIVE 07/05/2019 12:28 PM EST [employer] Hepatitis C Ab NONREACTIVE NONREACTIVE 07/05/19 20 12:28 PM [employer] Comment: The hepatitis C procedure used in [...] recommended by ordering HCV RNA by PCR. Hep B Core Ab, IgM NONREACTIVE NONREACTIVE 06/23 12:28 PM EST [employer] Hep A IgM NONREACTIVE NONREACTIVE 07/05/2019 12:28 PM EST [employer] BLOOD SPECIMEN / Unknown 07/05/2019 12:28 PM EST 07/05/2019 12:28 PM EST us Ashley Guerrero MD IMMUNOLOGY ORDERABLES Final Resu lt [address] [place] [address], [facility] [phone] from Last 3 Months or Most Recently Relevant to Health Maintenance Insurance [employer] MEDIC[employer] ADVANTAGE Advance Directives Documents on File Type Date Recorded Patient Wire Inserter Expl anation ACP-Advance Directive 07/25/2019 1:29 PM * Full Code (Latest Code Status on File) Date Activated Date Inactivated Comments 09/01/2023 2:08 PM 09/01/2023 5:20 PM * Full Code Date Activated Date Inactivated Comments 09/01/2023 2:08 PM 09/01/2023 2:08 PM * Full Code Date Activated Date Inactivated Comments 07/03/2019 5:27 PM 07/24/2019 7:14 PM Care Teams Psychologist Experimental Relationship Specialty Start Date End Date Grayson Espitia MD PCP - General 04/17/19
--- OUTSIDE RECORDS SUMMARY | 2025-02-09 10:03 | XMS_ITS | Encounter Summary ---
Author Organization [id number] [place] [address] Care Team Providers Care Histology Supervisor Name Role Phone Grayson Espitia MD Primary Care Provider Reason for Visit * Reason Onset Date Comments Care Navigation 12/20/2022 Encounter Details Date Type Department Care Team (Late st Contact Info) Description 12/20/2022 Telephone [facility] Neurology [address] [place] [address] Yaneth Mejia, ROGE Care Navigation Social History Tobacco Use Types Packs/Day Years Used Date Smoking Tobacco: Never Smokeless Tobacco: Never Alcohol Use Standard Drinks/Week Comments Not Currently 0 (1 standard drink = 0.6 oz pur e alcohol) PHQ-2 Answer Date Recorded Total Score 1 01/13/2022 Childcare Answer Date Recorded Childcare Unknown 11/01/2018 Employment Answer Date Recorded Employment Unknown 11/01/2018 Purpose - Life Answer Date Recorded Purpose and direction in life Unknown Comments No Sex and Gender Information Value Date Recorded Sex Assigned at Not on file Legal Sex Female 11:43 AM EDT Gender Identity Not on file Sexual Orientation Not on file documented as of this encounter Miscellaneous Notes * Telephone Encounter - Yaneth Mejia RN - 12/20/2022 10:29 AM EDT Contact Type: Direct contact - Phone call with patient - general Reason For Call: Neurology Care Navigation Update Intervention: CN left message for return call and provided direct line. documented in this encounter Plan of Treatment Not on file documented as of this encounter Goals Goal Patient Goal Type Associated Problems Recent Progress Patient-Stated? Author <enter goal here> General Yes Yanci Eagle RN Note: Evaluation of progress towards goal: patient plans for a safe discharge home with self care and support from and son. documented as of this encounter Visit Diagnoses Not on filedocumented in this encounter Additional Health Concerns Assessment Noted Time PHQ-9 Depression Total Score: 1 01/14/20 22 9:00 AM EDT documented as of this encounter Care Teams Histology Supervisor Relationship Specialty Start Date End Date Grayson Espitia MD PCP - General Family Medicine 12/21/21 documented as of this encounter
--- OUTSIDE RECORDS SUMMARY | 2025-02-09 10:03 | XMS_ITS | Encounter Summary ---
Author Organization [facility] Address [address] [place] [address] Care Team Providers Care Service Director Name Role Phone Grayson Espitia MD Unavailable [phone] Grayson Espitia MD Primary Care Provider [phone] Walker Monroy MD Unavailable Farhad Harper MD Unavailable [phone] Shannen Velazquez RN Unavailable [phone] Grayson Espitia MD Unavailable [phone] Encounter Details Date Type Department Care Team (Late st Contact Info) Description 05/02/2024 Clinisync Result Encounter [facility] External Department Unsolicited Provider, Generic External Data Social History Tobacco Use Types Packs/Day Years Used Date Smoking Tobacco: Never Smokeless Tobacco: Never Alcohol Use Standard Drinks/Week Comments Yes 1 (1 standard drink = 0.6 oz pur e alcohol) Caffeine: 2-4 cups Social Connection and Isolat ion Panel [NHANES] Answer Date Recorded In a typical week, how many times do you talk on the phone with family, friends, or neighbors? More than three times a week 09/05/2023 How often do you get togethe r with friends or relatives? Once a week 09/05/2023 How often do you attend chur ch or adventism services? More than 4 times per year 09/05/2023 Do you belong to any clubs o r organizations such as bahai groups, unions, fraternal or athletic groups, or school groups? Yes 09/05/2023 How often do you attend meet ings of the clubs or organizations you belong to? More than 4 times per year 09/05/2023 Are you , , di vorced, , never , or living with a partner? 09/05/2023 AUDIT-C Answer Date Recorded Q1: How often do you have a drink containing alc ohol? Monthly or less 09/05/2023 Q2: How many drinks containi ng alcohol do you have on a typical day when you are drinking? 1 or 2 09/05/2023 Q3: How often do you have si x or more drinks on one occasion? Never 09/05/2023 Overall Financial Resource Strain (CARDIA) Answe r Date Recorded How hard is it for you to pa y for the very basics like food, housing, medical care, and heating? Not hard at all 09/05/2023 PHQ-2 Answer Date Recorded Patient Health Questionnaire-2 Score 6 06/07/2023 [facility] - Occupational Stress Questionnaire Answer Date Recorded Do you feel stress - tense, restless, nervous, or anxious, or unable to sleep at night because your mind is troubled all the time - these days? To some extent 09/05/2023 Exercise Vital Sign Answer Date Recorde d On average, how many days pe r week do you engage in moderate to strenuous exercise (like a brisk walk)? 0 days 09/05/2023 On average, how many minutes do you engage in exercise at this level? 0 min 09/05/2023 Hunger Vital Sign Answer Date Recorded Within the past 12 months, y ou worried that your food would run out before you got the money to buy more. Never true 09/05/19 24 Within the past 12 months, t he food you bought just didn't last and you didn't have money to get more. Never true 09/05/2023 PRAPARE - Transportation Answer Date Re corded In the past 12 months, has l ack of transportation kept you from medical appointments or from getting medications? No 08/21 In the past 12 months, has l ack of transportation kept you from meetings, work, or from getting things needed for daily living? No 09/05/2023 Housing Stability Vital Sign Answer Luis e Recorded In the last 12 months, was t here a time when you were not able to pay the mortgage or rent on time? No 09/05/2023 In the last 12 months, how many places have you lived? 1 09/05/2023 In the last 12 months, was t here a time when you did not have a steady place to sleep or slept in a prison (including now)? No 09/05/2023 Education Answer Date Recorded What is the highest level of school you have completed or the highest degree you have received? Some college, no degree 11/30/2022 Comments No Sex and Gender Information Value Date Recorded Sex Assigned at Not on file Legal Sex Female 6:51 PM EDT Gender Identity Not on file Sexual Orientation Not on file Occupation Industry Job Start Date Job End Date Retired Not on file Not on file Not on file documented as of this encounter Plan of Treatment Upcoming Encounters Date Type Department Care Team (Late st Contact Info) Description 03/05/2025 2:30 PM EDT Office Visit [facility] Family Medicine [address] [place] [address] Grayson Espitia MD [address] [place] [address] 11/05/2025 1:05 PM EDT Office Visit [facility] [address] [place] [address] Lula Gasca MD [address] [place] [address] documented as of this encounter Procedures Procedure Name Priority Date/Time Associated Diagnosis Comments ECG 12-LEAD 05/02/2024 10:55 AM EST documented in this encounter Results * ECG 12-LEAD (05/02/2024 10:55 AM EST) Anatomical Region Laterality Modality Other 05/02/2024 10:5 5 AM EST Narrative 05/02/2024 8:16 PM EST The [address] [address] Electrocardiograph Report Signed Patient: RHETTELEANOR Hay MR#: [id number] : 1950 Acct:[id number] Age/Sex: 73 / F ADM Date: 05/02/24 Loc: CARD Attending Dr: GeovannyStaff Physician Sheriff Ordering Physician: Beth Lancaster M.D. Date of Service: 05/02/24 Procedure(s): ECG 12 lead Accession Number(s): [id number] cc: The [facility] Test Date: 2024-05-02 Pat Name: ELEANOR MCCLAIN Department: Room: - Gender: Female Qa Software Test Engineer: : 1950 Requested By: [id number] Order Number: [id number] Reading MD: GINO PENNY Measurements Intervals [place] Rate: 53 P: 78 NV: 180 QRS: 67 QRSD: 89 T: 78 QT: 455 QTc: 430 Interpretive Statements SINUS BRADYCARDIA NONSPECIFIC T-WAVE ABNORMALITY Electronically Signed On 05-02-2024 20:16:37 EST by GINO PENNY Dictated By: Gino Penny D.O. Signed By: 05/02/24201505/02/242015 DD/ 1055 TD/TT: Contact Centre Supervisor: Procedure Note Radiology, Radiologist, MD - 05/02/2024 [place] [address] Electrocardiograph Report Signed Patient: ELEANOR MCCLAIN MMR#: [id number] : 1950cct:[id number] Age/Sex: 73 / FADM Date: 05/02/24 Loc: CARD Attending Dr: Beth Lancaster M.D. Ordering Physician: Beth Lancaster M.D. Date of Service: 05/02/24 Procedure(s): ECG 12 lead Accession Number(s): [id number] cc: [facility] Test Date: 2024-05-02 Pat Name: ELEANOR MCCLAIN Department: Room: - Gender: Female Qa Software Test Engineer: : 1950 Requested By: [id number] Order Number: [id number] Reading MD: GINO PENNY Measurements Intervals [place] Rate: 53 P: 78 NV: 180 QRS: 67 QRSD: 89 T: 78 QT: 455 QTc: 430 Interpretive Statements SINUS BRADYCARDIA NONSPECIFIC T-WAVE ABNORMALITY Electronically Signed On 05-02-2024 20:16:37 EST by GINO PENNY Dictated By: Gino Penny D.O. Signed By:05/02/24201505/02/242015 DD/ 1055 TD/TT: Contact Centre Supervisor: us Generic External Data Provider [facility] Final Result documented in this encounter Visit Diagnoses Not on filedocumented in this encounter Additional Health Concerns Assessment Noted Time PHQ-9 Depression Total Score: 2 07/11/19 24 2:00 PM EST documented as of this encounter Care Teams Service Director Relationship Specialty Start Date End Date Grayson Espitia MD [address] [address] PCP - Devoted 05/23/22 05/22/24 Grayson Espitia MD [address] [address] PCP - General Family Medicine 10/12/22 Grayson Espitia MD [address] [address] PCP - [place] 05/23/2405/22 Walker Monroy MD [address] [place] [address] Referring Physician Neurology 06/30/23 Farhad Harper MD [address] [place] [address] Referring Physician Cardiology 06/30/23 Shannen Velazquez, ROGE [address] [place] [address] Registered Nurse Family Medicine 11/09/23 documented as of this encounter
--- OUTSIDE RECORDS SUMMARY | 2025-02-09 10:03 | XMS_ITS | Encounter Summary ---
Author Organization [facility] [employer] [facility] Address [id number] [address] [place] [address] Care Team Providers Care Primary Care Nurse Practitioner Name Role Phone Grayson Espitia MD Primary Care Provider Reason for Visit * Reason Onset Date Comments Care Navigation 01/04/2023 Encounter Details Date Type Department Care Team (Late st Contact Info) Description 01/04/2023 Telephone [facility] Neurology [address] [place] [address] Yaneth Mejia, ROGE Care Navigation Social History Tobacco Use Types Packs/Day Years Used Date Smoking Tobacco: Never Smokeless Tobacco: Never Alcohol Use Standard Drinks/Week Comments Not Currently 0 (1 standard drink = 0.6 oz pur e alcohol) PHQ-2 Answer Date Recorded Total Score 1 01/13/2022 Childcare Answer Date Recorded Childcare Unknown 11/01/2018 Employment Answer Date Recorded Employment Unknown 11/01/2018 Hunger Screening Answer Date Recorded Within the past 12 months we worried whether our food would run out before we got money to buy more. Never True 01/06/2023 Within the past 12 months th e food we bought just didn't last and we didn't have money to get more. Never True 01/06/2023 Purpose - Life Answer Date Recorded Purpose and direction in life Unknown Comments No Sex and Gender Information Value Date Recorded Sex Assigned at Not on file Legal Sex Female 11:43 AM EDT Gender Identity Not on file Sexual Orientation Not on file documented as of this encounter Miscellaneous Notes * Telephone Encounter - Yaneth Mejia RN - 01/04/2023 1:19 PM EDT Contact Type: Direct contact - Phone call with patient - general Reason For Call: Neurology Care Navigation Update Assessment: [place]mar, spouse and PHI designee, reports that he is in the process of [facility]. He mentioned that there are people from his sabianism that have offered to come inand help him. Intervention: CN called [place]mar and received an update. Questions: None documented in this encounter Plan of Treatment [...] documented as of this encounter Care Teams Primary Care Nurse Practitioner Relationship Specialty Start Date End Date Grayson Espitia MD PCP - General Family Medicine 12/21/21 documented as of this encounter
--- OUTSIDE RECORDS SUMMARY | 2025-02-09 10:03 | XMS_ITS | Encounter Summary ---
Author Organization [employer] [facility] Address [id number] [address] [place] [address] Care Team Providers Care Kosher Sealer Name Role Phone Grayson Espitia MD Primary Care Provider [phone] Encounter Details Date Type Department Care Team (Late st Contact Info) Description 12/31/2021 Orders Only [facility] [employer] [address] [place] [phone] Transcribe, Orders Support User Pain (Primary Dx); Encounter for follow-up examination after completed treatment for conditions other than malignant neoplasm Social History Tobacco Use Types Packs/Day Years Used Date Smoking Tobacco: Never Smokeless Tobacco: Never Alcohol Use Standard Drinks/Week Comments Not Currently 0 (1 standard drink = 0.6 oz pur e alcohol) Childcare Answer Date Recorded Childcare Unknown 11/01/2018 Employment Answer Date Recorded Employment Unknown 11/01/2018 Purpose - Life Answer Date Recorded Purpose and direction in life Unknown Comments No Sex and Gender Information Value Date Recorded Sex Assigned at Not on file Legal Sex Female 11:43 AM EDT Gender Identity Not on file Sexual Orientation Not on file COVID-19 Exposure Response Date Recorded In the last month, have you been in contact with someone who was confirmed or suspected to have Coronavirus / COVID-19? No / Unsure 12/31/2021 12:28 PM EDT documented as of this encounter Functional Status documented as of this encounter Mental Status * Question Answer Entry Date Author Overall Cognitive Status WFL 01/01/2022 1:21 PM EDT Ana Moulton, PT * Question Answer Entry Date Author Overall Cognitive Status X 12/31/2021 9:32 AM EDT Mary Beth Luke CCC-CASH REGISTER REPAIRER documented in this encounter Plan of Treatment Not on file documented as of this encounter Results * MR brain without contrast (12/30/2021 2:30 PM EDT) us Scanning Provider External IMG MRI ORDERABLES Fi nal Result * Vas carotid duplex bilateral (12/30/2021 7:20 AM EDT) us Scanning Provider External CV VASCULAR ORDERABLE S Final Result MEDSTREAMING * CT brain without contrast stroke alert (12/29/2021 9:35 PM EDT) us Scanning Provider External IMG CT ORDERABLES Fin al Result * X-ray chest 2 views (12/29/2021 9:20 PM EDT) us Scanning Provider External IMG DIAGNOSTIC IMAGIN G ORDERABLES Final Result documented in this encounter Visit Diagnoses Diagnosis Pain- Primary Generalized pain Encounter for follow-up examination after completed treatment for conditions other than malignant neoplasm documented in this encounter Additional Health Concerns Infection Onset Date Last Indicated Resolved Time COVID-19 Positive Comment:+ swab from transferring facility 12/31/2021 12/31/2021 01/21/2022 11:12 PM EDT documented as of this encounter Care Teams Kosher Sealer Relationship Specialty Start Date End Date Grayson Espitia MD PCP - General Family Medicine 12/21/21 documented as of this encounter
--- OUTSIDE RECORDS SUMMARY | 2025-02-09 10:03 | XMS_ITS | Encounter Summary ---
Author Organization [facility] Address [address] [place] [address] Care Team Providers Care Briquette Machine Operator Helper Name Role Phone Grayson Espitia MD Unavailable [phone] Grayson Espitia MD Unavailable [phone] Grayson Espitia MD Primary Care Provider Walker Monroy MD Unavailable Farhad Harper MD Unavailable [phone] Shannen Velazquez RN Unavailable [phone] Kirstie Mcneil Unavailable [phone] Grayson Espitia MD Unavailable [phone] Encounter Details Date Type Department Care Team (Late st Contact Info) Description 12/16/2022 Abstract [facility] [place] [facility] Family Medicine [facility] [place] [phone] Farhad Harper MD [address] [place] [address] Social History Tobacco Use Types Packs/Day Years Used Date Smoking Tobacco: Former Cigarettes Smokeless Tobacco: Never Alcohol Use Standard Drinks/Week Comments Yes 0 (1 standard drink = 0.6 oz pur e alcohol) Caffeine: 2-4 Social Connection and Isolation Panel [NHANES] A nswer Date Recorded Frequency of Communication with Friends and Fami ly Not on file 12/15/2022 Frequency of Social Gatherings with Friends and Family Not on file 12/15/2022 Attends Christianity Services Not on file 12/15 Active Member of Clubs or Organizations Not on f ile 12/15/2022 Attends Club or Organization Meetings Not on herson e 12/15/2022 Are you , , di vorced, , never , or living with a partner? 12/15/2022 PHQ-2 Answer Date Recorded Patient Health Questionnaire-2 Score 2 12/15/2022 Exercise Vital Sign Answer Date Recorde d On average, how many days pe r week do you engage in moderate to strenuous exercise (like a brisk walk)? 0 days 12/15/2022 On average, how many minutes do you engage in exercise at this level? 0 min 12/15/2022 Hunger Vital Sign Answer Date Recorded Within the past 12 months, y ou worried that your food would run out before you got the money to buy more. Never true 12/16/19 23 Within the past 12 months, t he food you bought just didn't last and you didn't have money to get more. Never true 12/15/2022 PRAPARE - Transportation Answer Date Re corded In the past 12 months, has l ack of transportation kept you from medical appointments or from getting medications? No 11/21 In the past 12 months, has l ack of transportation kept you from meetings, work, or from getting things needed for daily living? No 12/15/2022 Education Answer Date Recorded What is the [...] Exposure Response Date Recorded In the last 10 days, have yo u been in contact with someone who was confirmed or suspected to have Coronavirus/COVID-19? No / Unsure 12/01/2022 9:56 AM EDT documented as of this encounter Plan of Treatment Upcoming Encounters Date Type Department Care Team (Late st Contact Info) Description 03/05/2025 2:30 PM EDT Office Visit [facility] [address] [place] [address] [address] [place] [address] Grayson Espitia MD [address] [address] (Fax) 11/05/2025 1:05 PM EDT Office [facility] [address] [place] [phone] Lula Gasca MD [address] [place] [address] documented as of this encounter Visit Diagnoses Not on filedocumented in this encounter Care Teams Briquette Machine Operator Helper Relationship Specialty Start Date End Date Grayson Espitia MD [address] [address] (Fax) PCP - [employer] 05/23/21 11/21/23 Grayson Espitia MD [address] [address] (Fax) PCP - [facility] 05/23/22 05/22/24 Grayson Espitia MD [address] [address] (Fax) PCP - General Family Medicine 10/12/22 Grayson Espitia MD [address] [address] (Fax) PCP - Medical [place] 05/23/2405/22 Walker Monroy MD [address] [place] [address] Referring Physician Neurology 06/30/23 Farhad Harper MD [address] [place] [address] Referring Physician Cardiology 06/30/23 Shannen Velazquez, RN [address] [place] [address] Registered Nurse Family Medicine 11/09/23 Kirstie Mcneil L[facility] [address] [place] [address] Care Coordination Manager Behavioral Health 11/29/22 10/14/23 documented as of this encounter
--- OUTSIDE RECORDS SUMMARY | 2025-02-09 10:03 | XMS_ITS | Encounter Summary ---
Author Organization [facility] tem Address [id number] [address] [place] [address] Care Team Providers Care Mechanic Driver Name Role Phone Grayson Espitia MD Primary Care Provider Reason for Visit * Reason Onset Date Comments Care Navigation 12/14/2022 Encounter Details Date Type Department Care Team (Late st Contact Info) Description 12/14/2022 Telephone [facility] Physicians Neurology [address] [place] [address] Yaneth Mejia, ROGE Care Navigation [...] Telephone Encounter - Yaneth Mejia RN - 12/14/2022 11:11 AM EDT Contact Type: Direct contact - [...] documented as of this encounter Care Teams Mechanic Driver Relationship Specialty Start Date End Date Grayson Espitia MD PCP - General Family Medicine 12/21/21 documented as of this encounter
--- OUTSIDE RECORDS SUMMARY | 2025-02-09 10:03 | XMS_ITS | Encounter Summary ---
Author Organization [facility] Address [address] [place] [address] Care Team Providers Care Endoscopy Technican Name Role Phone Grayson Espitia MD Unavailable [phone] Grayson Espitia MD Unavailable [phone] Grayson Espitia MD Primary Care Provider [phone] Walker Monroy MD Unavailable Farhad Harper MD Unavailable [phone] Shannen Velazquez RN Unavailable [phone] Kirstie Mcneil Unavailable [phone] Grayson Espitia MD Unavailable [phone] Encounter Details Date Type Department Care Team (Late st Contact Info) Description 01/06/2023 Orders Only [facility] [place] 521 Family Medicine [address] [place] [address] Grayson Espitia MD 112 [facility] [address] [place], [place] [phone] (Fax) Acute cystitis without hematuria (Primary Dx) Social History Tobacco Use Types Packs/Day Years [...] and Family Not on file 12/15/2022 Attends Protestant Services Not on file 12/15 Active Member [...] 03/05/2025 2:30 PM EDT Office Visit [facility] [address] [facility] [address] [place] [address] Grayson Espitia MD 112 [facility] 100 [place] [address] (Fax) 11/05/2025 1:05 PM EDT Office [facility] [address] [place] [address] Lula Gasca MD [address] [place] [address] documented as of this encounter Visit Diagnoses Diagnosis Acute cystitis without hematuria- Primary documented in this encounter Care Teams Endoscopy Technican Relationship Specialty Start Date End Date Grayson Espitia MD [address] [place] [address] (Fax) PCP - [employer] 05/23/21 11/21/23 Grayson Espitia MD [address] [place] [address] (Fax) PCP - [employer] 05/23/22 05/22/24 Grayson Espitia MD [address] [place] [address] (Fax) PCP - General Family Medicine 10/12/22 Grayson Espitia MD [address] [place] [address] (Fax) PCP - Medical [place] 05/23/2405/22 Walker Monroy MD [address] [place] [address] Referring Physician Neurology 06/30/23 Farhad Harper MD [address] [place] [address] Referring Physician Cardiology 06/30/23 Shannen Velazquez, ROGE [address] [place] [address] Registered Nurse Family Medicine 11/09/23 Kirstie Mcneil LISW-[facility] [address] [facility] [[email or web address] [address] [place] [address] Senior Web Designer Behavioral Health 11/29/22 10/14/23 documented as of this encounter
--- OUTSIDE RECORDS SUMMARY | 2025-02-09 10:03 | XMS_ITS | Encounter Summary ---
Author Organization [facility] Address [address] [place] [address] Care Team Providers Care Dispatcher Service Name Role Phone Grayson Espitia MD Primary Care Provider [phone] Encounter Details Date Type Department Care Team (Late st Contact Info) Description 05/22/2020 Abstract PATIENT ACUITY SCORE Social History Tobacco Use Types Packs/Day Years Used Date Smoking Tobacco: Never Smokeless Tobacco: Never Comments Unknown Sex and Gender Information Value Date Recorded Sex Assigned at Not on file Legal Sex Female 5:46 PM EDT Gender Identity Not on file Sexual Orientation Not on file documented as of this encounter Functional Status * Hearing impairment? Answer Date of Assessment Author No 08/02/2019 12:33 AM EDT Ada Hill RN * Visual impairment? Answer Date of Assessment Author No 08/02/2019 12:33 AM EDT Ada Hill RN * Gait/Transfer impairment? Answer Date of Assessment Author No 08/02/2019 12:33 AM EDT Ada Hill RN * ADL impairment? Answer Date of Assessment Author Yes 08/02/2019 12:33 AM EDT Ada Hill RN * Difficulty with errands? Answer Date of Assessment Author No 08/02/2019 12:33 AM SHANKART Ada Hill RN documented as of this encounter Mental Status * Cognitive difficulty? Answer Entry Date Author Yes 08/02/2019 12:33 AM SHANKART Ada Hill RN documented in this encounter Plan of Treatment Not on file documented as of this encounter Visit Diagnoses Not on filedocumented in this encounter Care Teams Dispatcher Service Relationship Specialty Start Date End Date Grayson Espitia MD [address] [place] [address] PCP - General Family Medicine 08/02/19 documented as of this encounter
--- OUTSIDE RECORDS SUMMARY | 2025-02-09 10:03 | XMS_ITS | Encounter Summary ---
Author Organization [facility] Address [address] [place] [address] Care Team Providers Care Engine House Helper Name Role Phone Grayson Espitia MD Unavailable [phone] Grayson Espitia MD Unavailable [phone] Grayson Espitia MD Primary Care Provider [phone] Walker Monroy MD Unavailable Farhad Harper MD Unavailable [phone] Shannen Velazquez RN Unavailable [phone] Kirstie Mcneil Unavailable [phone] Grayson Espitia MD Unavailable [phone] Encounter Details Date Type Department Care Team (Late st Contact Info) Description 02/03/2023 Abstract [facility] [place] 521 Family Medicine [address] [place] [address] Grayson Espitia MD 112 [facility] [address] [place] [address] (Fax) Social History Tobacco Use Types Packs/Day Years Used Date Smoking Tobacco: Never Smokeless Tobacco: Never Tobacco Cessation:Counseling Given: Not Answered Alcohol Use Standard Drinks/Week Comments Yes 1 (1 standard drink = 0.6 oz pur e alcohol) Caffeine: 2-4 cups Social Connection and Isolation Panel [NHANES] A nswer Date Recorded Frequency of Communication with Friends and Fami ly Not on file 12/15/2022 Frequency of Social Gatherings with Friends and Family Not on file 12/15/2022 Attends Alevism Services Not on file 12/15 Active Member [...] Visit [facility] 112 [facility] 100 [place] [address] Grayson Espitia MD 112 [place] [address] [address] (Fax) 11/05/2025 1:05 PM EDT Office [facility] [address] [place] [phone] Lula Gasca MD [address] [place] [address] documented as of this encounter Visit Diagnoses Not on filedocumented in this encounter Care Teams Engine House Helper Relationship Specialty Start Date End Date Grayson Espitia MD 112 [place] [address] [address] (Fax) PCP - [employer] 05/23/21 11/21/23 Grayson Espitia MD 112 [place] [address] [address] (Fax) PCP - [facility] 05/23/22 05/22/24 Grayson Espitia MD 112 [place] [address] [address] (Fax) PCP - General Family Medicine 10/12/22 Grayson Espitia MD 112 [place] [address] [address] (Fax) PCP - Medical [place] MD 05/23/2405/22 Walker Monroy MD [address] [place] [address] Referring Physician Neurology 06/30/23 Farhad Harper MD [address] [place] [address] Referring Physician Cardiology 06/30/23 Shannen Velazquez, ROGE [address] [place] [address] Registered Nurse Family Medicine 11/09/23 Kirstie Mcneil LISW-S [address] [place] [address] Chemical Etch Operator Behavioral Health 11/29/22 10/14/23 documented as of this encounter
--- OUTSIDE RECORDS SUMMARY | 2025-02-09 10:03 | XMS_ITS | Encounter Summary ---
Author Organization [employer] Address [id number] [address] [place] [address] Care Team Providers Care Welding Equipment Repairer Name Role Phone Grayson Espitia MD Primary Care Provider Encounter Details Date Type Department Care Team (Late st Contact Info) Description 12/02/2022 Telephone [facility] Neu[facility] [address] [place] [address] Yaneth Mejia RN Social History Tobacco Use Types Packs/Day Years [...] Telephone Encounter - Yaneth Mejia RN - 12/02/2022 2:32 PM EDT Contact Type: Direct contact - Phone call with patient - general Reason for Call: CN introduction. Assessment- 71 y.o. female who initially presented to outside emergency department after she obtainan outpatient MRI which was read as abnormal, significant for acute infarct in the right parietal region. Patient reports feeling fatigued for about a month now she believes this was a symptom that prompted her physician to order an MRI of the brain. Upon further history taking she also reports having difficulty putting her arms and legs through the appropriate clubbing hold for example she states she is tried to put both legs through 1 hole on the right side and she is done the same with the upper extremities trying to put both hands to the right sleeve. Today, states that she is doing ok. Patient had [facility] yesterday [facility] Then patient go on the phone. Patient states that she is not in a good mood and CNoffered to call patient tomorrow. Patient said she just had a melt down. Patient states that someone told her based on the images, her brain is like belarusian cheese and that she has the worst case of Alzheimer's disease. Patient repeated herself about being in a bad mood and just had a melt down. Patient states that she does not think taking pills is going to fix anything. She said to let them know that she is ok and taking her medication. Patient states that she is stuck in the house and her will not allow her to go outside unless he is with her. She states that she has lost her freedom. 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 Date of Hospitalization: 11/20/2022-11/23/2022. New Medications: ASA. Medication Issues: . Anticoagulation: ASA and Eliquis. Labs: None Testing: None. Equipment: None. Home Care: None Outpatient Therapy: None Follow Up Appointments: PCP-yesterday Neuro 01/06/2023 Cardiology 1 week from today. Depression: reports a little depression and memory issues (not new). PCP prescribed Donepezil to help with memory and mood. When handed the phone to the patient, the patient states that she is not in a good mood and just had a melt down. She states she was outside planing and salmon and the does not like where she is planting them. Patient states she has lost her freedom and she is stuck in the house because her won't let her outside unless he is with her. Patient states she has an appointment with a counselor next week. Support: . Plan/Goals: continue to take medication as prescribed. Keep scheduled appointments. Intervention: CN spoke with patient and for an update. Given that patient has reported being in a bad mood, CN will call back at another time to complete the post hospital follow up call. Questions Education: CN provided direct line to call if any questions or concerns and if any new, returning or worseningsymptoms. Patient verbalized understanding. documented in this encounter Plan of Treatment Not on file documented as of this encounter Goals Goal Patient Goal Type Associated Problems Recent Progress Patient-Stated? Author <enter goal here> General Yes Yanci Eagle, ROGE Note: Evaluation of progress towards goal: patient plans for a safe discharge home with self care and support from and son. documented as of this encounter Visit Diagnoses Not on filedocumented in this encounter Additional Health Concerns Assessment Noted Time PHQ-9 Depression Total Score: 1 01/14/20 22 9:00 AM EDT documented as of this encounter Care Teams Welding Equipment Repairer Relationship Specialty Start Date End Date Grayson Espitia MD PCP - General Family Medicine 12/21/21 documented as of this encounter
--- OUTSIDE RECORDS SUMMARY | 2025-02-09 10:03 | XMS_ITS | Clinical Summary ---
Author Organization [facility] Address [facility] [place] [address] Care Team Providers Care Leather Finisher Name Role Phone Grayson Espitia MD Primary Care Provider Allergies Active Allergy Reactions Criticality Noted Date Comments Latex 05/10/2019 Medications traZODone (DESYREL) 50 MG tablet Take 25 mg by mouth nightly as needed . Active FLUoxetine (PROZAC) 40 MG capsule Take 40 mg by mouth daily . Active magnesium 30 mg tablet Take 250 mg by mouth 2 (two) times a day . Active potassium chloride (K-DUR) 10 MEQ CR tablet Take 10 mEq by mouth 2 (two) times a day 3 tabs in am and 3 tabs in pm . Active spironolactone (ALDACTONE) 25 MG tablet Take 25 mg by mouth 2 (two) times a day . Active losartan (COZAAR) 100 MG tablet Take 100 mg by mouth daily . Active clopidogreL (PLAVIX) 75 mg tablet Take 75 mg by mouth daily . Active gemfibrozil (LOPID) 600 MG tablet Take 600 mg by mouth 2 (two) times a day . Active amLODIPine (NORVASC) 10 MG tablet Take 10 mg by mouth daily . Active niacin 500 MG tablet Take 500 mg by mouth daily with breakfast 2 tabs at bedtime . Active diphenhydrAMINE (BENADRYL) 25 mg tablet Take 25 mg by mouth nightly as needed for itching . Active aspirin 325 MG EC tablet Take 325 mg by mouth daily . Active Family History Medical History Relation Comments Cancer Father Diabetes Mother Stroke Mother Relation Status Comments Father Mother Social History Tobacco Use Types Packs/Day Years Used Date Smoking Tobacco: Never Smokeless Tobacco: Never Alcohol Use Standard Drinks/Week Comments Not Currently 0 (1 standard drink = 0.6 oz pur e alcohol) Comments Unknown Sex and Gender Information Value Date Recorded Sex Assigned at Not on file Legal Sex Female 2:09 PM EST Gender Identity Not on file Sexual Orientation Not on file Last Filed Vital Signs Vital Sign Reading Time Taken Comments Blood Pressure 132/72 06/06/2019 3:03 PM EST Pulse 70 06/06/2019 3:03 PM EST Temperature 37 C (98.6 F) 06/06/2019 8:05 AM EST Respiratory Rate 14 06/06/2019 8:05 AM EST Oxygen Saturation 99% 06/06/2019 3:03 PM EST Inhaled Oxygen Concentration - - Weight 64.4 kg (142 lb) 06/06/2019 8:40 AM EST Height 157.5 cm (5' 2 ) 06/06/2019 8:40 AM EST Body Mass Index 25.97 06/06/2019 8:40 AM EST Plan of Treatment Not on file Medical Devices Implanted Type Area Oral Hygienist Device Identifier Shelf Expiration Date Model / Serial / Lot Closure Starclose Se - [id number] Implanted:Qty: 1 on 06/06/2019 by Farhad Harper MD at [facility] Closure Device WHYTE VAS [id number] / / Insurance MEDIC[facility]PP[facility] MEDIC[facility] PART A & B Advance Directives For more information, please contact: [phone] * Full Code (Latest Code Status on File) Date Activated Date Inactivated Comments 06/06/2019 9:00 AM Care Teams Leather Finisher Relationship Specialty Start Date End Date Grayson Espitia MD PCP - General Family Medicine 05/29/19
--- OUTSIDE RECORDS SUMMARY | 2025-02-09 10:03 | XMS_ITS | Encounter Summary ---
Author Organization [facility] Address [facility] [place] [address] Care Team Providers Care Relay Motorman Name Role Phone Grayson Espitia MD Primary Care Provider + [phone] Encounter Details Date Type Department Care Team (Late st Contact Info) Description 05/29/2019 Prep for Surgery [facility] Provider Cardiology [address] [place] [address] Farhad Harper MD [address] [place] [address] Social History Tobacco Use Types Packs/Day Years Used Date Smoking Tobacco: Never Assessed Comments Unknown Sex and Gender Information Value Date Recorded Sex Assigned at Not on file Legal Sex Female 2:09 PM EST Gender Identity Not on file Sexual Orientation Not on file documented as of this encounter Plan of Treatment Not on file documented as of this encounter Visit Diagnoses Not on filedocumented in this encounter Care Teams Relay Motorman Relationship Specialty Start Date End Date Grayson Espitia MD PCP - General Family Medicine 05/29/19 documented as of this encounter
--- OUTSIDE RECORDS SUMMARY | 2025-02-09 10:03 | XMS_ITS | Encounter Summary ---
Author Organization [facility] Address [address] [place] [address] Care Team Providers Care Inflated Ball Molder Name Role Phone Grayson Espitia MD Unavailable [phone] Grayson Espitia MD Unavailable [phone] Grayson Espitia MD Primary Care Provider [phone] Walker Monroy MD Unavailable Farhad Harper MD Unavailable [phone] Shannen Velazquez RN Unavailable [phone] Kirstie Mcneil Unavailable [phone] Grayson Espitia MD Unavailable [phone] Encounter Details Date Type Department Care Team (Late st Contact Info) Description 06/07/2023 Abstract [facility] [place] [facility] Family Medicine [address] [place] [address] Grayson Espitia MD 112 [facility] [address] [place] [address] (Fax) Social History Tobacco Use Types Packs/Day [...] neighbors? More than three times a week 02/28/2023 How often do you get togethe r with friends or relatives? Once a week 02/28/2023 How often do you attend chur ch or jew services? More than 4 times per year 02/28/2023 Do you belong to any clubs o r organizations such as zoroastrianism groups, unions, fraternal or athletic groups, or school groups? Yes 02/28/2023 How often do you attend meet ings of the clubs or organizations you belong to? More than 4 times per year 02/28/2023 Are you , , di vorced, , never , or living with a partner? 02/28/2023 AUDIT-C Answer Date Recorded Q1: How often do you have a drink containing alc ohol? Monthly or less 02/28/2023 Q2: How many drinks containi ng alcohol do you have on a typical day when you are drinking? 1 or 2 02/28/2023 Q3: How often do you have si x or more drinks on one occasion? Never 02/28/2023 Overall Financial Resource Strain (CARDIA) Answe r Date Recorded How hard is it for you to pa y for the very basics like food, housing, medical care, and heating? Not hard at all 02/28/2023 PHQ-2 Answer Date Recorded Patient Health Questionnaire-2 Score 6 06/07/2023 [facility] - Occupational Stress Questionnaire Answer Date Recorded Do you feel stress - tense, restless, nervous, or anxious, or unable to sleep at night because your mind is troubled all the time - these days? To some extent 02/28/2023 Exercise Vital Sign Answer Date Recorde d [...] the money to buy more. Never true 02/29/20 23 Within the past 12 months, t he food you bought just didn't last and you didn't have money to get more. Never true 02/28/2023 PRAPARE - Transportation Answer Date Re corded In the past 12 months, has l ack of transportation kept you from medical appointments or from getting medications? No 01/2023 In the past 12 months, has l ack of transportation kept you from meetings, work, or from getting things needed for daily living? No 02/28/2023 Housing Stability Vital Sign Answer Luis e Recorded In the last 12 months, was t here a time when you were not able to pay the mortgage or rent on time? No 02/28/2023 In the last 12 months, how many places have you lived? 1 02/28/2023 In the last 12 months, was t here a time when you did not have a steady place to sleep or slept in a custodial (including now)? No 02/28/2023 Education Answer Date Recorded What is the [...] as of this encounter Functional Status * Over the past 2 weeks, how often have you been bothered by any of the following problems? Question Answer Date of Assessment Author Little interest or pleasure in doing things Nearly every day 06/07/2023 2:26 PM Pauly Blanchard MA Feeling down, depressed, or hopeless Nearly every day 06/07/2023 2:26 PM Pauly Blanchard MA Patient Health Questionnaire-2 Score 6 06/07/2023 2:26 PM Pauly Blanchard MA * Question Answer Date of Assessment Author Trouble falling or staying asleep, or sleeping too much More than half the days 06/07/2023 2:26 PM Pauly Blanchard MA Feeling tired or having little energy Several days 06/07/2023 2:26 PM Pauly Blanchard MA Poor appetite or overeating Not at all 06/07/2023 2:26 PM Pauly Blanchard MA Feeling bad about yourself - or that you are a failure or have let yourself or your family down Nearly every day 06/07/2023 2:26 PM Pauly Blanchard MA Trouble concentrating on things, such as reading the newspaper or watching television Not at all 06/07/2023 2:26 PM Pauly Blanchard MA Moving or speaking so slowly that other people could have noticed? Or the opposite - being so fidgety or restless that you have been moving around a lot more than usual. Not at all 06/07/2023 2:26 PM Pauly Blanchard MA Thoughts that you would be better off or hurting yourself in some way Not at all 06/07/2023 2:26 PM Pauly Blanchard M A Patient Health Questionnaire-9 Score 12 06/07/2023 2:26 PM Pauly Blanchard MA documented as of this encounter Plan of Treatment Upcoming Encounters Date Type Department Care Team (Late st Contact Info) Description 03/05/2025 2:30 PM EDT Office Visit [facility] [address] [place] [address] Grayson Espitia MD 112 [facility] 100 [place] [address] (Fax) 11/05/2025 1:05 PM EDT Office Visit [facility] [address] [place] [phone] Lula Gasca MD [address] [place] [address] documented as of this encounter Visit Diagnoses Not on filedocumented in this encounter Additional Health Concerns Assessment Noted Time PHQ-9 Depression Total Score: 12 024 2:26 PM EST documented as of this encounter Care Teams Inflated Ball Molder Relationship Specialty Start Date End Date Grayson Espitia MD [address] [address] [place] [address] (Fax) PCP - [employer] 05/23/21 11/21/23 Grayson Espitia MD [address] [place] [address] PCP - [facility] 05/23/22 05/22/24 Grayson Espitia MD [address] [place] [address] PCP - General Family Medicine 10/12/22 Grayson Espitia MD [address] [place] [address] PCP - Medical [place] 05/23/2405/22 Walker Monroy MD [address] [place] [address] Referring Physician Neurology 06/30/23 Farhad Harpre MD [address] [place], [place] [address] Referring Physician Cardiology 06/30/23 Shannen Velazquez RN [address] [place] [address] Registered Nurse Family Medicine 11/09/23 Kirstie Mcneil LISW-S [address] [place] [address] Equipment Or Machinery Cleaner Behavioral Health 11/29/22 10/14/23 documented as of this encounter
--- OUTSIDE RECORDS SUMMARY | 2025-02-09 10:03 | XMS_ITS | Encounter Summary ---
Author Organization [facility] Address [address] [place] [address] Care Team Providers Care State Comptroller Name Role Phone Grayson Espitia MD Primary Care Provider [phone] Encounter Details Date Type Department Care Team (Late st Contact Info) Description 03/30/2021 Abstract PATIENT ACUITY SCORE Social History Tobacco [...] on filedocumented in this encounter Care Teams State Comptroller Relationship Specialty Start Date End Date Grayson Espitia MD [address] [place], [place] [id number] PCP - General Family Medicine 08/02/19 documented as of this encounter
--- OUTSIDE RECORDS SUMMARY | 2025-02-09 10:03 | XMS_ITS | Encounter Summary ---
Author Organization [facility] Address [address] [place] [address] Care Team Providers Care Supervisor Keymodule Assembly Name Role Phone Grayson Espitia MD Unavailable [phone] Grayson Espitia MD Unavailable [phone] Grayson Espitia MD Primary Care Provider Walker Monroy MD Unavailable Farhad Harper MD Unavailable [phone] Shannen Velazquez RN Unavailable [phone] Kirstie Mcneil Unavailable [phone] Grayson Espitia MD Unavailable [phone] Encounter Details Date Type Department Care Team (Late st Contact Info) Description 03/17/2023 Abstract [facility] [place] 521 Family Medicine [address] [place] [address] Grayson Espitia MD 112 [facility] [address] [place] [address] (Fax) Social History Tobacco Use Types Packs/Day [...] often do you attend chur ch or taoist services? More than 4 times per year 02/28/2023 Do you belong to any clubs o r organizations such as taoist groups, unions, fraternal or athletic groups, or [...] Answer Date Recorded Patient Health Questionnaire-2 Score 0 03/09/2023 [facility] Occupat ional Health - [...] place to sleep or slept in a retirement (including now)? No 02/28/2023 Education Answer Date [...] Office Visit [facility] [address] [address] [place] [address] Grayson Espitia MD 112 [facility] 100 [place] [address] 11/05/2025 1:05 PM EDT Office Visit [facility] [address] [place] [address] Lula Gasca MD [address] [place], [place] [id number] documented as of this encounter Visit Diagnoses Not on filedocumented in this encounter Care Teams Supervisor Keymodule Assembly Relationship Specialty Start Date End Date Grayson Espitia MD [address] [place] [address] PCP - [employer] 05/23/21 11/21/23 Grayson Espitia MD [address] [place] [address] [address] (Fax) PCP - [employer]oted 05/23/22 05/22/24 Grayson Espitia MD [address] [place] [address] [address] PCP - General Family Medicine 10/12/22 Grayson Espitia MD [address] [place] [address] [address] PCP - Medical [place] 05/23/2405/22 Walker Monroy MD [address] [place] [address] Referring Physician Neurology 06/30/23 Farhad Harper MD [address] [place], [place] [address] Referring Physician Cardiology 06/30/23 Shannen Velazquez, ROGE [address] [place] [address] Registered Nurse Family Medicine 11/09/23 Kirstie Mcneil LISW-S [address] [place] [address] End Worker Behavioral Health 11/29/22 10/14/23 documented as of this encounter
--- OUTSIDE RECORDS SUMMARY | 2025-02-09 10:03 | XMS_ITS | Encounter Summary ---
Author Organization [facility] Address [id number] [place] [address] Care Team Providers Care Education Intern Name Role Phone Grayson Espitia MD Primary Care Provider [phone] Encounter Details Date Type Department Care Team (Late st Contact Info) Description 11/19/2022 Orders Only [facility] External Film Storage [facility] [place] [address] Transcribe, Orders Support User Pain (Primary Dx) Social History Tobacco Use Types [...] Entry Date Author Overall Cognitive Status X 11/22/2022 8:51 AM EDT Sonal Schmidt PTA * Question Answer Entry Date Author Overall Cognitive Status X 11/20/2022 8:44 AM EDT Uzma Dobbins, MARCI-PICKING TECH documented in this encounter Plan of Treatment Not on file documented as of this encounter Goals Goal Patient Goal Type Associated Problems Recent Progress Patient-Stated? Author <enter goal here> General Yes Yanci Eagle, RN Note: Evaluation of progress towards goal: patient plans for a safe discharge home with self care and support from and son. documented as of this encounter Results * CT angiogram head (11/19/2022 4:55 PM EDT) us Scanning Provider External IMG CT ORDERABLES Fin al Result documented in this encounter Visit Diagnoses Diagnosis Pain- Primary Generalized pain documented in this encounter Additional Health Concerns Assessment Noted Time PHQ-9 Depression Total Score: 1 01/14/20 22 9:00 AM EDT documented as of this encounter Care Teams Education Intern Relationship Specialty Start Date End Date Grayson Espitia MD PCP - General Family Medicine 12/21/21 documented as of this encounter
--- OUTSIDE RECORDS SUMMARY | 2025-02-09 10:03 | XMS_ITS | Encounter Summary ---
Author Organization [facility] Address [address] [place] [address] Care Team Providers Care Dermatopathologist Name Role Phone Grayson Espitia MD Unavailable [phone] Grayson Espitia MD Unavailable [phone] Grayson Espitia MD Primary Care Provider Walker Monroy MD Unavailable Farhad Harper MD Unavailable [phone] Shannen Velazquez RN Unavailable [phone] Kirstie Mcneil Unavailable [phone] Grayson Espitia MD Unavailable [phone] Encounter Details Date Type Department Care Team (Late st Contact Info) Description 05/05/2023 Orders Only [facility] [place] 521 Family Medicine [address] [place] [address] Grayson Espitia MD 112 [facility] [address] [place] [address] (Fax) Social History Tobacco Use Types Packs/Day [...] 02/28/2023 How often do you attend chur or nondenominational services? More than 4 times per year 02/28/2023 Do you belong to any clubs o r organizations such as spiritism groups, unions, fraternal or athletic groups, or [...] Recorded Patient Health Questionnaire-2 Score 0 03/09/2023 [facility] of Occupat ional Health - Occupational Stress [...] slept in a prison (including now)? No 02/28/2023 Education Answer Date [...] Description 03/05/2025 2:30 PM EDT Office Visit [facility] [address] [address] Grayson Espitia MD 112 [facility] 100 [place] [address] 11/05/2025 1:05 PM EDT Office Visit [facility] [address] [place] [address] Lula Gasca MD [address] [place] [address] documented as of this encounter Visit Diagnoses Not on filedocumented in this encounter Care Teams Dermatopathologist Relationship Specialty Start Date End Date Grayson Espitia MD [address] [place] [address] [address] PCP - [employer] 05/23/21 11/21/23 Grayson Espitia MD [address] [place] [address] [address] (Fax) PCP - [employer]oted 05/23/22 05/22/24 Grayson Espitia MD [address] [place] [address] [address] PCP - General Family Medicine 10/12/22 Grayson Espitia MD [address] [place] [address] [address] PCP - Medical [place] 05/23/2405/22 Walker Monroy MD [address] [place] [address] Referring Physician Neurology 06/30/23 Farhad Harper MD [address] [place], [place] [address] Referring Physician Cardiology 06/30/23 Shnanen Velazquez, ROGE [address] [place] [address] Registered Nurse Family Medicine 11/09/23 Kirstie Mcneil LISW-S [address] [place] [address] Upset Welding Machine Operator Behavioral Health 11/29/22 10/14/23 documented as of this encounter
--- OUTSIDE RECORDS SUMMARY | 2025-02-09 10:03 | XMS_ITS | Encounter Summary ---
Author Organization [facility] Address [address] [place] [address] Care Team Providers Care Mainspring Strip Inspector Name Role Phone Grayson Espitia MD Primary Care Provider [phone] Encounter Details Date Type Department Care Team (Late st Contact Info) Description 08/03/2019 Results Only [facility] Medicine [address] [place] [address] Kamar Abbott MD [address] [place] [address] Social History Tobacco Use Types Packs/Day Years [...] 08/02/2019 12:33 AM SHANKART Ada Hill RN * ADL impairment? Answer Date of Assessment Author Yes 08/02/2019 12:33 AM SHANKART Ada Hill RN * Difficulty with errands? Answer Date of Assessment Author No 08/02/2019 12:33 AM Ada Dillon RN documented as of this encounter Mental Status * Cognitive difficulty? Answer Entry Date Author Yes 08/02/2019 12:33 AM SHANKART Uhler, L tom, RN documented in this encounter Plan of Treatment Pending Results Name Type Priority Associated Diagnoses Date /Time ECHOCARDIOGRAM REPORT Imaging 10:33 AM EDT documented as of this encounter Visit Diagnoses Not on filedocumented in this encounter Care Teams Mainspring Strip Inspector Relationship Specialty Start Date End Date Grayson Espitia MD [address] [place] [address] PCP - General Family Medicine 08/02/19 documented as of this encounter
--- OUTSIDE RECORDS SUMMARY | 2025-02-09 10:03 | XMS_ITS | Encounter Summary ---
Author Organization [facility] Address [address] [place] [address] Care Team Providers Care Hr Receptionist Name Role Phone Grayson Espitia MD Unavailable [phone] Grayson Espitia MD Unavailable [phone] Grayson Espitia MD Primary Care Provider [phone] Walker Monroy MD Unavailable Farhad Harper MD Unavailable [phone] Shannen Velazquez RN Unavailable [phone] Kirstie Mcneil Unavailable [phone] Grayson Espitia MD Unavailable [phone] Encounter Details Date Type Department Care Team (Late st Contact Info) Description 05/25/2023 Abstract [facility] [place] [address] Family [address] [place] [phone] Farhad Harper MD [address] [place] [address] Social History Tobacco Use Types [...] How often do you attend chur or rastafari services? More than 4 times per year 02/28/2023 Do you belong to any clubs o r organizations such as protestant groups, unions, fraternal or athletic groups, or [...] Recorded Patient Health Questionnaire-2 Score 0 03/09/2023 [facility] Occupat ional Health - [...] place to sleep or slept in a residential (including now)? No 02/28/2023 Education Answer Date [...] 2:30 PM EDT Office Visit [facility] [address] [facility] 100 [place] [address] Grayson Espitia MD 112 [facility] 100 [place] [address] 11/05/2025 1:05 PM EDT Office Visit [facility] [address] [place] [address] Lula Gasca MD [address] [place] [address] documented as of this encounter Visit Diagnoses Not on filedocumented in this encounter Care Teams Hr Receptionist Relationship Specialty Start Date End Date Grayson Espitia MD [address] [place] [address] [address] PCP - [employer] 05/23/21 11/21/23 Grayson Espitia MD [address] [place] [address] [address] (Fax) PCP - [facility]oted 05/23/22 05/22/24 Grayson Espitia MD [address] [place] [address] [address] PCP - General Family Medicine 10/12/22 Grayson Espitia MD [address] [place] [address] [address] PCP - Medical [place] 05/23/2405/22 Walker Monroy MD [address] [place] [address] Referring Physician Neurology 06/30/23 Farhad Harper MD [address] [place], [place] [address] Referring Physician Cardiology 06/30/23 Shannen Velazquez, ROGE [address] [place] [address] Registered Nurse Family Medicine 11/09/23 Kirstie Mcneil LISW-S [address] [place] [address] Equalizing Saw Operator Behavioral Health 11/29/22 10/14/23 documented as of this encounter
--- OUTSIDE RECORDS SUMMARY | 2025-02-09 10:03 | XMS_ITS | Encounter Summary ---
Author Organization [facility] Address [address] [place] [address] Care Team Providers Care Latex Caster Name Role Phone Grayson Hernandez MD Unavailable [phone] Grayson Hernandez MD Unavailable [phone] Grayson Hernandez MD Primary Care Provider [phone] Walker Monroy MD Unavailable Farhad Harper MD Unavailable [phone] Shannen Velazquez RN Unavailable [phone] Grayson Hernandez MD Unavailable [phone] Encounter Details Date Type Department Care Team (Late st Contact Info) Description 11/02/2023 Clinisync Result Encounter [facility] External Department Unsolicited [...] 09/05/2023 How often do you attend chur or scientologist services? More than 4 times per year 09/05/2023 Do you belong to any clubs o r organizations such as orthodoxy groups, unions, fraternal or athletic groups, or [...] Recorded Patient Health Questionnaire-2 Score 6 06/07/2023 [facility] - Occupational Stress Questionnaire Answer Date Recorded [...] place to sleep or slept in a skilled nursing (including now)? No 09/05/2023 Education Answer Date [...] Office Visit [facility] [address] [place] [address] Grayson Hernandez MD [address] [place] [address] 11/05/2025 1:05 PM EDT Office Visit [facility] [address] [place] [phone] Lula Gasca MD [address] [place] [address] documented as of this encounter Procedures Procedure Name Priority Date/Time Associated Diagnosis Comments ECG 12-LEAD 11/02/2023 11:03 AM EDT documented in this encounter Results * ECG 12-LEAD (11/02/2023 11:03 AM EDT) Anatomical Region Laterality Modality Other 11/02/2023 11:0 3 AM EDT Narrative 11/03/2023 6:53 AM EDT The [address] [address] Electrocardiograph Report Signed Patient: ELEANOR MCCLAIN MR#: [id number] : 1950 Acct:[id number] Age/Sex: 72 / F ADM Date: 11/02/23 Loc: LAB Attending Dr: GeovannyStaff Physician Sheriff Ordering Physician: Beth Lancaster M.D. Date of Service: 11/02/23 Procedure(s): ECG 12 lead Accession Number(s): [id number] cc: The [facility] Test Date: 2023-11-02 Pat Name: ELEANOR MCCLAIN Department: Room: - Gender: Female Slope Tender: : 1950 Requested By: GRAYSON HERNANDEZ Order Number: [id number] Reading MD: GINO PENNY Measurements Intervals [place] Rate: 56 P: 59 [place]: 216 QRS: 37 QRSD: 93 T: 31 QT: 461 QTc: 445 Interpretive Statements SINUS BRADYCARDIA WITH FIRST DEGREE AV BLOCK Compared to ECG 12/11/2022 07:57:26 First degree AV block now present Sinus rhythm no longer present Myocardial infarct finding no longer present Electronically Signed On 11-03-2023 6:52:34 EDT by GINO PENNY Dictated By: Gino Penny D.O. Signed By: 11/03/23 0653 11/03/23 06 DD/ 1103 TD/TT: Wax Pattern Assembler: Procedure Note Radiology, Radiologist, MD - 11/03/[address] [address] Electrocardiograph Report Signed Patient: ELEANOR MCCLAIN MMR#: [id number] : 1950cct:[id number] Age/Sex: 72 / FADM Date: 11/02/23 Loc: LAB Attending Dr: Beth Lancaster M.D. Ordering Physician: Beth Lancaster M.D. Date of Service: 11/02/23 Procedure(s): ECG 12 lead Accession Number(s): [id number] cc: [facility] Test Date: 2023-11-02 Pat Name: ELEANOR MCCLAIN Department: Room: - Gender: Female Slope Tender: : 1950 Requested By: GRAYSON HERNANDEZ Order Number: [id number] Reading MD: GINO PENNY Measurements Intervals [place] Rate: 56 P: 59 [place]: 216 QRS: 37 QRSD: 93 T: 31 QT: 461 QTc: 445 Interpretive Statements SINUS BRADYCARDIA WITH FIRST DEGREE AV BLOCK Compared to ECG 12/11/2022 07:57:26 First degree AV block now present Sinus rhythm no longer present Myocardial infarct finding no longer present Electronically Signed On 11-03-2023 6:52:34 EDT by GINO PENNY Dictated By: Gino Penny D.O. Signed By:11/03/23 0653 11/03/23 0653 DD/ 110 TD/TT: Wax Pattern Assembler: us Generic External Data Provider [facility] Final Result documented in this encounter Visit Diagnoses Not on filedocumented in this encounter Additional Health Concerns Assessment Noted Time PHQ-9 Depression Total Score: 2 07/11/19 24 2:00 PM EST documented as of this encounter Care Teams Latex Caster Relationship Specialty Start Date End Date Grayson Hernandez MD [address] [address] (Fax) PCP - [employer] 05/23/21 11/21/23 Grayson Hernandez MD [address] [address] (Fax) PCP - [employer] 05/23/22 05/22/24 Grayson Hernandez MD [address] [address] (Fax) PCP - General Family Medicine 10/12/22 Grayson Hernandez MD [address] [address] (Fax) PCP - Medical [facility] 05/23/2405/22 Walker Monroy MD [address] [place] [address] Referring Physician Neurology 06/30/23 Farhad Harper MD [address] [place] [address] Referring Physician Cardiology 06/30/23 Shannen Velazquez, ROGE [address] [address] Registered Nurse Family Medicine 11/09/23 documented as of this encounter
--- OUTSIDE RECORDS SUMMARY | 2025-02-09 10:03 | XMS_ITS | Encounter Summary ---
Author Organization [facility] Address [id number] [address] [place] [address] Care Team Providers Care Key Operator Name Role Phone Grayson Espitia MD Primary Care Provider [phone] Encounter Details Date Type Department Care Team (Late st Contact Info) Description 11/20/2022 Orders Only [facility] [employer] [address] [place] [address] External, Scanning Provider Pain (Primary Dx) Social History Tobacco Use [...] Status X 11/22/2022 8:51 AM EDT Sonal Schmidt, IT INFRASTRUCTURE SPECIALIST * Question Answer Entry Date Author Overall Cognitive Status X 11/20/2022 8:44 AM EDT Uzma Dobbins, CCC-SHOE IRONER documented in this encounter Plan of Treatment [...] encounter Results * MR brain without contrast (11/19/2022 2:10 PM EDT) us Scanning Provider External IMG MRI ORDERABLES Fi nal Result documented in this encounter Visit Diagnoses Diagnosis Pain- Primary Generalized pain documented in this encounter Additional Health Concerns Assessment Noted Time PHQ-9 Depression Total Score: 1 01/14/20 22 9:00 AM EDT documented as of this encounter Care Teams Key Operator Relationship Specialty Start Date End Date Grayson Espitia MD PCP - General Family Medicine 12/21/21 documented as of this encounter
--- OUTSIDE RECORDS SUMMARY | 2025-02-09 10:03 | XMS_ITS | Encounter Summary ---
Author Organization [facility] Address [address], [address] [place] [address] Care Team Providers Care Stranding Supervisor Name Role Phone Grayson Espitia MD Primary Care Provider [phone] Encounter Details Date Type Department Care Team (Late st Contact Info) Description 11/28/2024 Results Follow-Up [facility] Honing Machine Operator [employer] [address] [place] [address] Keerthi Patel, WORKING SUPERVISOR - KATIE [address] [place] [address] Social History Tobacco Use Types Packs/Day Years Used Date Smoking Tobacco: Never Smokeless Tobacco: Never Alcohol Use Standard Drinks/Week Comments Never 0 [...] Description 05/30/2025 11:00 AM EST Office Visit [facility] Honing Machine Operator [employer] [address] [place] [address] Anshul Harper MD [address] [place] [address] 6 month f/u lab/ekg documented as of this encounter Visit Diagnoses Not on filedocumented in this encounter Additional Health Concerns Assessment Noted Time A Body Mass Index follow-up plan has been documented for the patient 02/25/2020 9:59 AM EDT documented as of this encounter Care Teams Stranding Supervisor Relationship Specialty Start Date End Date Grayson Espitia MD PCP - General 04/17/19 documented as of this encounter
--- OUTSIDE RECORDS SUMMARY | 2025-02-09 10:03 | XMS_ITS | Clinical Summary ---
Author Organization [facility] Address [address] [facility] [place] [address] Care Team Providers Care Machine Setter And Repairer Name Role Phone Grayson Espitia MD Primary Care Provider [phone] Source Comments The following information is NOT included in Care Everywhere downloads:Psychiatric notes, ECG results, Cardiac Rehab notes, Pulmonary Function notes, data from SmartForms (includes but not limited toPregnancy data,audiograms, eye exams, pre-surgical evaluation notes, well-child exam data).[facility] Allergies Active Allergy Reactions Criticality Noted Date Comments Latex Anaphylactic Shock High 05/10/2019 Eyes swell shut, rash Medications amiodarone (CORDARONE) 200 MG tablet Take 200 mg by mouth daily. Active amLODIPine (NORVASC) 10 MG tablet Take 10 mg by mouth daily. Active atorvastatin (LIPITOR) 40 mg tablet Take 40 mg by mouth daily. Active CARvedilol (COREG) 12.5 MG tablet Take 12.5 mg by mouth 2 times daily. Active hydrALAZINE (APRESOLINE) 25 MG tablet Take 25 mg by mouth 3 times daily. Active fluoxetine (PROZAC) 40 MG capsule Take 40 mg by mouth daily. Active aspirin 81 mg enteric coated tablet Take 1 Tablet by mouth daily. 30 Tablet 0 Active docusate sodium (COLACE) 100 mg capsule Take 1 Capsule by mouth 2 times daily. 60 Capsule 3 0 Active famotidine (PEPCID) 20 mg tablet Take 0.5 Tablets by mouth daily. 60 Tablet 3 0 Active gabapentin (NEURONTIN) 100 mg capsule Take 2 Capsules by mouth 2 times daily. 90 Capsule 3 0 Active warfarin (COUMADIN) 2.5 mg tablet Take 1 Tablet by mouth daily. 30 Tablet 3 0 Active acetaminophen (TYLENOL) 500 mg tablet Take 2 Tablets by mouth every 6 hours as needed. 30 Tablet 0 Active insulin regular (HUMULIN R) 100 UNIT/mL injection Inject 2-12 Units under the skin 4 times daily (before meals and at bedtime). 10 mL 3 0 Active lidocaine (LIDODERM) 5 % patch Place 1 Patch on the skin every 24 hours. 10 Patch 3 0 Active magnesium hydroxide (MILK OF MAGNESIA) 400 MG/5ML oral suspension Take 30 mL by mouth daily as needed for Constipation . 1 Bottle 3 0 Active ondansetron (ZOFRAN-ODT) 4 mg disintegrating tablet Take 1 Tablet by mouth every 6 hours as needed for Nausea. Place 1 tablet under tongue as needed for nausea. 10 Tablet 0 Active polyethylene glycol (MIRALAX) packet Take 1 Packet by mouth daily. Dissolve in 8 ounces of liquid. 3 0 Active senna (SENOKOT) 8.6 mg tablet Take by mouth at bedtime. 30 Tablet 0 Active Active Problems Problem Noted Date Diagnosed Date Acute postoperative respiratory failure 08/02/19 20 Anticoagulated 08/02/2019 Cervical stenosis of spinal canal 08/02/2019 Fall, initial encounter 08/01/2019 Acute cerebral infarction 07/07/2019 CAD, multiple vessel 07/03/2019 Coronary artery disease invo lving tan[place] coronary artery of [place] heart without angina pectoris Hx of CABG S/P AVR Paroxysmal atrial fibrillation H/O: CVA (cerebrovascular accident) Type 2 diabetes mellitus with other specified co mplication Elevated INR Chronic anemia Acute kidney injury superimposed on chronic kidn ey disease Herpes zoster without complication Hypertension, unspecified type Hyperlipidemia, unspecified hyperlipidemia type Gastroesophageal reflux dise ase, esophagitis presence not specified Immunizations Immunization Administration Dates Next Due Influenza, injectable, high dose seasonal, trivalent, preservative free (WPF=585) 03/25/2018 Influenza, injectable, quadr ivalent, preservative free (LCL=375) 03/01/2016 Influenza, injectable, recom binant, quadrivalent, preservative free (ZUC=368) 02/28/2020 Pneumococcal conjugate 13 valent (PCV13) (CVX=13 3) 12/20/2016 Social History Tobacco Use Types Packs/Day Years Used Date Smoking Tobacco: Never Smokeless Tobacco: Never Comments Unknown Sex and Gender Information Value Date Recorded Sex Assigned at Not on file Legal Sex Female 5:46 PM EDT Gender Identity Not on file Sexual Orientation Not on file Last Filed Vital Signs Vital Sign Reading Time Taken Comments Blood Pressure 169/57 08/07/2019 6:00 AM EDT Pulse 59 08/07/2019 6:00 AM EDT Temperature 36.8 C (98.3 F) 08/07/2019 6:00 AM EDT Respiratory Rate 18 08/07/2019 6:00 AM EDT Oxygen Saturation 93% 08/07/2019 6:00 AM EDT Inhaled Oxygen Concentration - - Weight 67.4 kg (148 lb 9.6 oz) 08/02/2019 1:03 A M EDT Height 157.5 cm (5' 2 ) 08/01/2019 11:38 PM EDT Body Mass Index 27.18 08/01/2019 11:38 PM EDT Plan of Treatment Health Maintenance Due Date Last Done Comments Hepatitis C Antibody 1966 Tdap Booster 1966 Hepatitis A (HAV) Vaccine (optional start 19+ years) 12/09/1967 Shingles (RZV) Vaccine (1 of 2) 1998 Hepatitis B (HBV) Vaccine (optional start 60+ years) 2008 Bone Densitometry 2013 Pneumococcal Vaccine(s) (50+ yrs) (2 of 2 - PPSV23) 12/20/2017 12/20/2016 Annual Wellness Visit (G0438) 06/23/2020 Basic Metabolic Panel 08/06/2020 08/07/2019 , 08/06/2019, 08/05/2019, Additional history exists RSV vaccine (adult) (1 - 1-d ose 75+ series) 12/09/2023 COVID-19 Vaccine (4 - 2024-2 6 season) 2025 04/27/2021, 08/30/2020, 08/02/2020 Influenza Vaccine (#1) 2025 , 03/25/2018, 03/01/2016 Pap Smear Discontinued Procedures Procedure Name Priority Date/Time Associated Diagnosis Comments BASIC METABOLIC PANEL Routine 08/07/2019 2:52 AM EDT from Last 3 Months or Most Recently Relevant to Health Maintenance Results * (ABNORMAL) BASIC METABOLIC PANEL (08/07/2019 2:52 AM EDT) Glucose 129(H) 80 - 116 mg/dL 08/07/2019 3:38 AM EDT [facility] Sodium 132(L) 135 - 148 mmol/L 08/07/2019 3:38 AM EDT [facility] Potassium 3.9 3.3 - 5.3 mmol/L 08/07/2019 3:38 AM EDT [facility] Carbon Dioxide 23 21 - 30 mmol/L 08/07/2019 3:38 AM EDT [facility] Chloride 100 97 - 111 mmol/L 08/07/2019 3:38 AM EDT [facility] Blood Urea Nitrogen 20 8 - 22 mg/dL 08/07/2019 3:38 AM EDT [facility] Creatinine 1.90(H) 0.50 - 1.10 mg/dL 08/07/2019 3:38 AM EDT [facility] Calcium 8.7 8.4 - 10.4 mg/dL 08/07/2019 3:38 AM EDT [facility] Anion Gap 13 5 - 13 08/07/2019 3:38 AM EDT [facility] Estimated GFR (CKD-EPI) 26(L) >=60 mL/min/1.7 3sqm 08/07/2019 3:38 AM EDT [facility] Blood BLOOD SPECIMEN / Unknown Venipuncture / Unknown 08/07/2019 2:52 AM EDT 08/07/2019 3:09 AM EDT us Gee Wakefield MD [facility] GENERAL LAB Final Result [facility] [address] [place] [address] from Last 3 Months or Most Recently Relevant to Health Maintenance Insurance COMMERCIAL INSURANCE - OTHER [employer] MEDICARE Advance Directives * Full Code (Latest Code Status on File) Date Activated Date Inactivated Comments 08/02/2019 12:22 AM 08/07/2019 2:43 PM Question Answer Comments Documentation of decision pr ocess for this code status: Discussed with patient or surrogate. This is the code status chosen by the patient/surrogate. * Full Code Date Activated Date Inactivated Comments 08/02/2019 12:01 AM 08/02/2019 12:22 AM Question Answer Comments Documentation of decision pr ocess for this code status: Patient and surrogate unable or unavailable to discuss. There is no previous documentation of code status. Defaulting to Full Code Care Teams Machine Setter And Repairer Relationship Specialty Start Date End Date Grayson Espitia MD [address] [place] [address] PCP - General Family Medicine 08/02/19
--- OUTSIDE RECORDS SUMMARY | 2025-02-09 10:03 | XMS_ITS | Encounter Summary ---
[id number] [address] [place] [address] Care Team Providers Care Instructor Substitute Cosmetology Name Role Phone Grayson Espitia MD Primary Care Provider [phone] Encounter Details Date Type Department Care Team (Late st Contact Info) Description 02/12/2022 Telephone [facility] [address] [place] [address] Junie Harden RN Social History Tobacco Use Types Packs/Day [...] documented as of this encounter Care Teams Instructor Substitute Cosmetology Relationship Specialty Start Date End Date Grayson Espitia MD PCP - General Family Medicine 12/21/21 documented as of this encounter
--- OUTSIDE RECORDS SUMMARY | 2025-02-09 10:03 | XMS_ITS | Encounter Summary ---
Author Organization [facility] Address [address], [address] [place] [address] Care Team Providers Care Carpenter Helper Maintenance Name Role Phone Grayson Espitia MD Primary Care Provider [phone] Encounter Details Date Type Department Care Team (Late st Contact Info) Description 05/02/2024 Orders Only [facility] [address] [place] [address] ProviderFozia MD Social History Tobacco Use Types Packs/Day Years [...] Description 05/30/2025 11:00 AM EST Office Visit [facility] [address] [place] [address] Anshul Harper MD [address] [facility] [address] 6 month f/u lab/ekg documented as of this encounter Procedures Procedure Name Priority Date/Time Associated Diagnosis Comments LAB RESULT Routine 05/02/2024 2:05 PM EST documented in this encounter Results * LAB RESULT (05/02/2024 2:05 PM EST) us Historical Provider CHEMISTRY ORDERABLES Berenice l Result documented in this encounter Visit Diagnoses Not on filedocumented in this encounter Additional Health Concerns Assessment Noted Time A Body Mass Index follow-up plan has been documented for the patient 02/25/2020 9:59 AM EDT documented as of this encounter Care Teams Carpenter Helper Maintenance Relationship Specialty Start Date End Date Grayson Espitia MD PCP - General 04/17/19 documented as of this encounter
--- OUTSIDE RECORDS SUMMARY | 2025-02-09 10:03 | XMS_ITS ---
Author Organization [facility] Address [address] [place] [address] Care Team Providers Care Warp Trucker Name Role Phone Grayson Espitia MD Primary Care Provider Walker Monroy MD Unavailable Farhad Harper MD Unavailable [phone] Shannen Velazquez RN Unavailable [phone] Grayson Espitia MD Unavailable [phone] Chronic Care Management (CCM) Status:Enrolled (Active) Start date:10/07/2022 Enrollment date:10/07/2022 Overview 03/25/23, 9:28 AM - Shannen Velazquez RN- Patient gives verbal consent to be enrolled in CCM Program and understands there could be a bill for this service. CCM Bill No Case Team Name Relationship Phone Shannen Velazquez RN(Responsible Staff) Gely dee RN [phone] Continued Care and Services Coordination
--- OUTSIDE RECORDS SUMMARY | 2025-02-09 10:03 | XMS_ITS | Clinical Summary ---
Author Organization [facility] Address [address] [place] [address] Care Team Providers Care Nightman Name Role Phone Unavailable Primary Care Provider Unavailabl e Social History Tobacco Use Types Packs/Day Years Used Date Smoking Tobacco: Never Assessed [place] Safety & Environment Answer Date Rec orded Fear of Current or Ex-Partner Not on file Emotionally Abused Not on file 07/14/2023 Physically Abused Not on file 07/14/2023 Sexually Abused Not on file 07/14/2023 Physically or Sexually Abused Not on file Comments Unknown Sex and Gender Information Value Date Recorded Sex Assigned at Not on file Legal Sex Female 10:47 PM EDT Gender Identity Not on file Sexual Orientation Not on file Plan of Treatment Health Maintenance Due Date Last Done Comments Medicare Annual Wellness (AWV) 1950 Depression Screening 1960 Adult Tetanus 1970 Pneumococcal Vaccine: 50+ Ye ars (1 of 1 - PCV) 1998 Zoster Vaccines (1 of 2) 1998 Fall Risk Screening 2013 COVID-19 Vaccine (1 - 2023-2 5 season) 2025 Influenza Vaccine (#1) 2025 HIB Vaccines Aged Out No longer eligi ble based on patient's age to complete this topic HPV Vaccines Aged Out No longer eligi ble based on patient's age to complete this topic IPV Vaccines Aged Out No longer eligi ble based on patient's age to complete this topic Meningococcal B Vaccine Aged Out No l onger eligible based on patient's age to complete this topic Meningococcal Vaccine Aged Out No florentin luiz eligible based on patient's age to complete this topic Rotavirus Vaccines Aged Out No longer eligible based on patient's age to complete this topic Insurance [employer]
--- OUTSIDE RECORDS SUMMARY | 2025-02-09 10:03 | XMS_ITS | Clinical Summary ---
Author Organization [facility] Address [facility] [id number] [address] [place] [address] Care Team Providers Care Train Director Name Role Phone Grayson Espitia MD Primary Care Provider [phone] Allergies Active Allergy Reactions Criticality Noted Date Comments Latex Anaphylaxis High 05/10/2019 Other reaction(s): nose runs, eyes swell, itching, unknown Eyes swell shut, rash Eyes swell shut, rash Medications levothyroxine (SYNTHROID, LEVOTHROID) 100 MCG tablet Take 1 tablet (100 mcg total) by mouth in the morning. Active atorvastatin (LIPITOR) 40 mg tablet Take 1 tablet (40 mg total) by mouth in the morning. Active dilTIAZem CD (CARDIZEM CD) 120 mg 24 hr capsule Take 1 capsule (120 mg total) by mouth in the morning. Active apixaban (ELIQUIS) 5 mg tablet Take 1 tablet (5 mg total) by mouth in the morning and 1 tablet (5 mg total) before bedtime. Active glipiZIDE (GLUCOTROL) 10 mg tablet Take 1 tablet (10 mg total) by mouth in the morning and 1 tablet (10 mg total) in the evening. Take before meals. Take with 5 mg dose for a total of 15mg.. Active glipiZIDE (GLUCOTROL) 5 mg tablet Take 1 tablet (5 mg total) by mouth in the morning and 1 tablet (5 mg total) in the evening. Take before meals. Take with the 10mg dose for a total of 15mg.. Active gabapentin (NEURONTIN) 600 mg tablet Take 1 tablet (600 mg total) by mouth in the morning and 1 tablet (600 mg total) before bedtime. Active DULoxetine (CYMBALTA) 60 mg capsule Take 1 capsule (60 mg total) by mouth in the morning. Active famotidine (PEPCID) 20 mg tablet Take 1 tablet (20 mg total) by mouth as needed. Active traZODone (DESYREL) 150 mg tablet Take 150 mg by mouth nightly. Take 1/2 tablet. Active furosemide (LASIX) 40 mg tablet Take 1 tablet (40 mg total) by mouth daily. Active cholecalciferol, vitamin D3, 5,000 units tablet Take 2 tablets (10,000 Units total) by mouth in the morning. Active magnesium oxide (MAGOX) 400 mg tablet Take 0.5 tablets (200 mg total) by mouth in the morning. Active ondansetron ODT (ZOFRAN ODT) 4 mg disintegrating tablet Dissolve 1 tablet (4 mg total) on tongue as needed for nausea or vomiting. Active diphenhydrAMINE (BENADRYL) 25 mg capsule Take 1 capsule (25 mg total) by mouth nightly as needed for itching. Active aspirin 81 mg Take 1 tablet (81 mg total) by mouth in the morning. 30 tablet 2 3 Active carvediloL (COREG) 12.5 mg tablet Take 0.5 tablets (6.25 mg total) by mouth in the morning and 0.5 tablets (6.25 mg total) in the evening. Take with meals. 30 tablet 3 Active Active Problems Problem Noted Date Diagnosed Date Stroke 11/20/2022 Cerebrovascular accident (CVA) 11/19/2022 CVA (cerebral vascular accident) 12/31/2021 Immunizations Immunization Administration Dates Next Due COVID-19, mRNA, LNP-S, PF, 100mcg/0.5mL Dose 08/11/2021,04/27/2021,08/30/2020,2020 Influenza High Dose Preserva tive Free IM 06/23/2021,03/25/2018 Influenza, Injectable, quadr ivalent (PF) 03/01/2020,03/25/2018,03/01/2016 Influenza, Recombinant, Quad rivalent, Injectable, Preserv 02/28/2020 Pneumococcal Conjugate 13-Valent 12/20/2016 Social History Tobacco Use Types Packs/Day Years Used Date Smoking Tobacco: Never Smokeless Tobacco: Never Tobacco Cessation:Counseling Given: Not Answered Alcohol Use Standard Drinks/Week Comments Not Currently [...] Sign Reading Time Taken Comments Blood Pressure 117/43 01/06/2023 12:57 PM EDT Pulse 73 11/23/2022 3:40 PM EDT Temperature 36.7 C (98.1 F) 11/23/2022 3:40 PM EDT Respiratory Rate 20 01/06/2023 12:57 PM EDT Oxygen Saturation 96% 11/23/2022 3:40 PM EDT Inhaled Oxygen Concentration - - Weight 70.3 kg (155 lb) 01/06/2023 12:57 PM EDT Height 157.5 cm (5' 2.01 ) 01/06/2023 12:57 PM E DT Body Mass Index 28.34 01/06/2023 12:57 PM EDT Plan of Treatment Health Maintenance Due Date Last Done Comments Depression Screening 1960 Tobacco Screening 1962 DTaP,Tdap and Td Vaccines (1 - Tdap) 12/09/1967 Zoster (Shingles) Vaccine (1 of 2) 1998 Fall Risk Screening 01/07/2024 01/06/2023 COVID-19 Vaccine (5 - 2024-2 6 season) 2025 08/11/2021, 04/27/2021, 08/30/2020, Additional history exists Influenza Vaccine 01/21/2025 06/23/2021, , 02/28/2020, Additional history exists Goals Goal Patient Goal Type Associated Problems Recent Progress Patient-Stated? Author <enter goal here> General Yes Yanci Eagle, RN Note: Evaluation of progress towards goal: patient plans for a safe discharge home with self care and support from and son. Medical Devices Not on file Insurance [employer] Advance Directives * Full Code (Latest Code Status on File) Date Activated Date Inactivated Comments 11/20/2022 12:32 PM 11/23/2022 8:03 PM * Full Code Date Activated Date Inactivated Comments 12/31/2021 11:23 AM 01/04/2022 10:45 PM Care Teams Train Director Relationship Specialty Start Date End Date Grayson Espitia MD PCP - General Family Medicine 12/21/21
--- OUTSIDE RECORDS SUMMARY | 2025-02-09 10:03 | XMS_ITS | Encounter Summary ---
Author Organization [facility] Address [address] [place] [address] Care Team Providers Care Dialysis Registered Nurse Name Role Phone Grayson Espitia MD Unavailable [phone] Grayson Espitia MD Unavailable [phone] Grayson Espitia MD Primary Care Provider Walker Monroy MD Unavailable Farhad Harper MD Unavailable [phone] Shannen Velazquez RN Unavailable [phone] Kirstie Mcneil Unavailable [phone] Grayson Espitia MD Unavailable [phone] Encounter Details Date Type Department Care Team (Late st Contact Info) Description 12/13/2022 Orders Only [facility] [place] [facility] Family Medicine [address] [place] [address] Grayson Espitia MD [address] [facility] [address] [place] [address] (Fax) Social History Tobacco Use Types Packs/Day [...] and Family Not on file 12/15/2022 Attends [employer] Not on file 12/15 Active Member [...] AM EDT documented as of this encounter Functional Status * Over the past 2 weeks, how often have you been bothered by any of the following problems? Question Answer Date of Assessment Author Little interest or pleasure in doing things Several days 12/15/2022 8:25 AM EDT Pauly Huber MA Feeling down, depressed, or hopeless Several days 12/15/2022 8:25 AM SH[place]ART Pauly Huber MA Patient Health Questionnaire -2 Score 2 12/15/2022 8:25 AM SHANKART Pauly Huber MA * If you checked off any problems on this questionnaire so far, Question Answer Date of Assessment Author How difficult have these problems made it for you to do your work, take care of things at home, or get along with other people? Extremely difficult 12/15/2022 8:25 AM EDT Pauly Huber MA documented as of this encounter Plan of Treatment Upcoming Encounters Date Type Department Care Team (Late st Contact Info) Description 03/05/2025 2:30 PM EDT Office Visit [facility] [address] [place] [address] [place] [address] Grayson Espitia MD [address] [place] [address] (Fax) 11/05/2025 1:05 PM EDT Office [facility] [address] [place] [address] Lula Gasca MD [address] [place] [address] documented as of this encounter Visit Diagnoses Not on filedocumented in this encounter Care Teams Dialysis Registered Nurse Relationship Specialty Start Date End Date Grayson Espitia MD [address] [place] [address] (Fax) PCP - [employer] 05/23/21 11/21/23 Grayson Espitia MD [address] [place] [address] (Fax) PCP - [employer] 05/23/22 05/22/24 Grayson Espitia MD [address] [place] [address] [place] [address] PCP - General Family Medicine 10/12/22 Grayson Espitia MD [address] [facility] [address] [place] [address] PCP - Medical [place] MA 05/23/2405/22 Walker Monroy MD [address] [place] [address] Referring Physician Neurology 06/30/23 Farhad Harper MD [address] [place] [address] Referring Physician Cardiology 06/30/23 Shannen Velazquez, ROGE [address] [place] [address] Registered Nurse Family Medicine 11/09/23 Kirstie Mcneil LISW-S [address] [place] [address] Currency Exchange Specialist Behavioral Health 11/29/22 10/14/23 documented as of this encounter
--- OUTSIDE RECORDS SUMMARY | 2025-02-09 10:03 | XMS_ITS | Encounter Summary ---
Author Organization [facility] Address [address] [facility] [place] [address] Care Team Providers Care Systems Librarian Name Role Phone Grayson Espitia MD Primary Care Provider [phone] Encounter Details Date Type Department Care Team (Late st Contact Info) Description 11/02/2023 Orders Only [facility] Patient Observer [address] [place] [address] ProviderFozia MD Social History Tobacco [...] Description 05/30/2025 11:00 AM EST Office Visit [facility] Patient Observer [address] [place] [address] Anshul Harper MD [address] [facility] [place] [address] 6 month f/u lab/ekg documented as of this encounter Procedures Procedure Name Priority Date/Time Associated Diagnosis Comments COMPREHENSIVE METABOLIC PANEL Routine 11/02/2023 1:10 PM EDT documented in this encounter Results * Comprehensive Metabolic Panel (11/02/2023 1:10 PM EDT) Blood BLOOD SPECIMEN / Unknown us Historical Provider CHEMISTRY ORDERABLES Berenice l Result documented in this encounter Visit Diagnoses Not on filedocumented in this encounter Additional Health Concerns Assessment Noted Time A Body Mass Index follow-up plan has been documented for the patient 02/25/2020 9:59 AM EDT documented as of this encounter Care Teams Systems Librarian Relationship Specialty Start Date End Date Grayson Espitia MD PCP - General 04/17/19 documented as of this encounter
--- OUTSIDE RECORDS SUMMARY | 2025-02-09 10:03 | XMS_ITS | Encounter Summary ---
Author Organization [facility] Address [address] [place] [address] Care Team Providers Care State Tested Nursing Assistant Name Role Phone Grayson Espitia MD Unavailable [phone] Grayson Espitia MD Unavailable [phone] Grayson Espitia MD Primary Care Provider [phone] Walker Monroy MD Unavailable Farhad Harper MD Unavailable [phone] Shannen Velazquez RN Unavailable [phone] Kirstie Mcneil Unavailable [phone] Grayson Espitia MD Unavailable [phone] Encounter Details Date Type Department Care Team (Late st Contact Info) Description 12/07/2022 Abstract [facility] [place] [facility] Family Medicine [address] [place] [address] Grayson Espitia MD [address] [facility] [address] [place], [place] [address] (Fax) Social History Tobacco Use Types Packs/Day Years Used Date Smoking Tobacco: Former Cigarettes Smokeless Tobacco: Never Alcohol Use Standard Drinks/Week Comments Yes 0 (1 standard drink = 0.6 oz pur e alcohol) Caffeine: 2-4 PHQ-2 Answer Date Recorded Patient Health Questionnaire-2 Score 0 11/24/2022 Education Answer Date Recorded What is the [...] [facility] [address] [facility] [address] [place] [address] Grayson Espitia MD [address] [place] [address] [address] (Fax) 11/05/2025 1:05 PM EDT Office Visit [facility] [address] [place] [address] Lula Gasca MD [address] [place] [address] documented as of this encounter Visit Diagnoses Not on filedocumented in this encounter Care Teams State Tested Nursing Assistant Relationship Specialty Start Date End Date Grayson Espitia MD [address] [address] [place] [address] (Fax) PCP - [employer] 05/23/21 11/21/23 Grayson Espitia MD [address] [facility] [place] [address] (Fax) PCP - [employer] 05/23/22 05/22/24 Grayson Espitia MD [address] [place] [address] [place] [address] (Fax) PCP - General Family Medicine 10/12/22 Grayson Espitia MD [address] [facility] [address] [place] [address] PCP - Medical [place] MA 05/23/2405/22 Walker Monroy MD [address] [place] [address] Referring Physician Neurology 06/30/23 Farhad Harper MD [address] [place] [address] Referring Physician Cardiology 06/30/23 Shannen Velazquez, ROGE [address] [place] [address] Registered Nurse Family Medicine 11/09/23 Kirstie Mcneil LISW-S [address] [place] [address] Assistant Track And Field Coach Behavioral Health 11/29/22 10/14/23 documented as of this encounter
--- OUTSIDE RECORDS SUMMARY | 2025-02-09 10:03 | XMS_ITS | Encounter Summary ---
Author Organization [facility] Address [address] [place] [address] Care Team Providers Care Gaming Associate Name Role Phone Grayson Espitia MD Unavailable [phone] Grayson Espitia MD Unavailable [phone] Grayson Espitia MD Primary Care Provider Walker Monroy MD Unavailable Farhad Harper MD Unavailable [phone] Shannen Velazquez RN Unavailable [phone] Kirstie Mcneil Unavailable [phone] Grayson Espitia MD Unavailable [phone] Encounter Details Date Type Department Care Team (Late st Contact Info) Description 07/11/2023 Orders Only [facility] [place] [facility] Family Medicine [address] [place] [address] Jason Hernán[place] [address] [address] Department of Medicine-Nephrology [place] [phone] Social History Tobacco Use Types Packs/Day Years [...] often do you attend chur ch or spiritism services? More than 4 times per year 02/28/2023 Do you belong to any clubs o r organizations such as hindu groups, unions, fraternal or athletic groups, or [...] Recorded Patient Health Questionnaire-2 Score 6 06/07/2023 [facility] - Occupational Stress Questionnaire Answer Date [...] place to sleep or slept in a [place] facility (including now)? No 02/28/2023 Education Answer Date [...] or pleasure in doing things Several days 07/11/2023 2:00 PM Pauly Blanchard MA Feeling down, depressed, or hopeless Several days 07/11/2023 2:00 PM Pauly Blanchard MA Patient Health Questionnaire -2 Score 2 07/11/2023 2:00 PM Pauly Blanchard MA * Question Answer Date of Assessment Author Trouble falling or staying asleep, or sleeping too much Not at all 07/11/2023 2:00 PM Pauly Blanchard MA Feeling tired or having kait le energy Not at all 07/11/2023 2:00 PM Pauly Blanchard MA Poor appetite or overeating Not at all 07/11/2023 2: 00 PM Pauly Blanchard MA Feeling bad about yourself - or that you are a failure or have let yourself or your family down Not at all 07/11/2023 2:00 PM LEW gaytan AugustALEC Trouble concentrating on thi ngs, such as reading the newspaper or watching television Not at all 07/11/2023 2:00 PM Pauly Blanchard MA Moving or speaking so slowly that other people could have noticed? Or the opposite - being so fidgety or restless that you have been moving around a lot more than usual. Not at all 07/11/2023 2:00 PM Pauly Blanchard MA Thoughts that you would be b sabra off or hurting yourself in some way Not at all 07/11/2023 2:00 PM LEW Huber August, ALEC Patient Health Questionnaire -9 Score 2 07/11/2023 2:00 PM Pauly Blanchard MA documented as of this encounter Plan of Treatment Upcoming Encounters Date Type Department Care Team (Late st Contact Info) Description 03/05/2025 2:30 PM EDT Office Visit [facility] Family Medicine [address] [facility] [address] [place] [address] Grayson Espitia MD 112 [facility] [address] [place] [address] 11/05/2025 1:05 PM EDT Office [facility] [address] [place] [address] Lula Gasca MD [address] [place] [address] documented as of this encounter Procedures Procedure Name Priority Date/Time Associated Diagnosis Comments DIABETIC RETINOPATHY SCREENING - OU - BOTH EYES Routine 07/07/2023 1:02 PM EST documented in this encounter Results * Diabetic Retinopathy Screening - OU - Both Eyes (07/07/2023 1:02 PM EST) Anatomical Region Laterality Modality Head Other us Jason Hernández MD OPHTH PHOTOGRAPHY Final Result documented in this encounter Visit Diagnoses Not on filedocumented in this encounter Additional Health Concerns Assessment Noted Time PHQ-9 Depression Total Score: 2 07/11/19 24 2:00 PM EST documented as of this encounter Care Teams Gaming Associate Relationship Specialty Start Date End Date Grayson Espitia MD [address] [place] [address] [address] PCP - [employer] 05/23/21 11/21/23 Grayson Espitia MD [address] [place] [address] PCP - [employer] 05/23/22 05/22/24 Grayson Espitia MD [address] [place] [address] PCP - General Family Medicine 10/12/22 Grayson Espitia MD [address] [address] PCP - Medical [place] MA 05/23/2405/22 Walker Monroy MD [address] [place] [address] Referring Physician Neurology 06/30/23 Farhad Harper MD [address] [place] [address] Referring Physician Cardiology 06/30/23 Shannen Velazquez, ROGE [address] [place] [address] Registered Nurse Family Medicine 11/09/23 Kirstie Mcneil LISW-S [address] [place] [address] Bridge Design Engineer Behavioral Health 11/29/22 10/14/23 documented as of this encounter
--- OUTSIDE RECORDS SUMMARY | 2025-02-09 10:03 | XMS_ITS | Encounter Summary ---
Author Organization [facility] Address [address] [place] [address] Care Team Providers Care Service Desk Technician Name Role Phone Grayson Espitia MD Primary Care Provider [phone] Encounter Details Date Type Department Care Team (Late st Contact Info) Description 08/03/2019 Results Only [facility] [address] [place] [address] Kamar Abbott MD [address] [place] [address] Social History Tobacco Use Types Packs/Day Years [...] L tom, RN documented in this encounter Procedure Notes * Teodoro Majano MD - 08/03/2019 10:33 AM EDTAssociated Order(s): ECHOCARDIOGRAM REPORT Transthoracic Echocardiographic Report Name: RHETT Interpreting IHSAN GREENBERG Physician: : 1950 Referring ROBER HARRINGTON MD Physician: Age: 68 Visual Training Aide: Cathi Lea [facility] Exam Date: 08/03/2019 Fellow: 10:33 AM CVT: PCP: Gender: Female Height 157.48 cm Weight 67.1328 kg Encounter #: BSA 1.68 m^2 Study IP Non-Unit BMI 27.07 kg/m^2 Location: Technical Fair-Good Quality: Type of Study: TTE procedure: 2D echocardiogram, M-Mode, Doppler , Color Doppler. Indications for Study:Syncope and Assessment of aortic valvular disease. Tech. Comments Patient's preferred language is Chilean . Patient identified by name and date of . Doctor's order(s) verified. Supine BP: 122/43 mmHg Patient Status: Routine Left Ventricle Value Normal Value Normal LVIDd: 4.7 cm <5.7 cm Post. Wall 1.1 cm <1.2 cm Thickness: Septum 1.2 cm <1.2 cm LV FS: 34.04 % 30-40% Diastolic: Systolic 3.1 cm <4 cm LV Mass 235.14g Dimension: LV Mass Index: 140 <110 Women<120 g/m^2 Men Left Atrium LA Dimension: 4 cm <3.92cm Atrium RA (apical 4): 3.15 cm <4.6 cm Findings/Conclusions Chambers LV Left ventricular systolic function is normal. The left ventricular ejection fraction (LVEF) is 65% +/- 5%by the biplane summation of discs (Nunez's rule) method. LA The left atrial size is mildly increased. The left atrial volume index is 36 mL/m2 (normal: <35 mL/m2, mild: 35-41 mL/m2, moderate: 42-48 mL/m2, severe: >48 mL/m2). RV Normal right ventricular size and function. The tricuspid annular plane systolic excursion (TAPSE, a marker of RV systolic function) is normal at 18 mm (normal >16 mm). RA Normal right atrium. Valves AV A prosthetic aortic valve is present. It is a tissue valve (#21 Intuity rapid deployment SAVR). Prosthetic valve peak gradient is 38 mmHg, mean gradient is 23 mmHg. The aortic systolic accleration time (AT) was 79 ms and the ejection time (ET) 333 ms leaving the AT/ET 0.24. Severe stenosis is suggested by an AT>100 ms and an AT/ET >0.35. This is consistent with a normally functioning prosthesis. MV Mitral annular fibrocalcific changes are present and are moderate-severe. TV There is mild tricuspid regurgitation. PV Normal pulmonic valve. Great Vessels Normal sinus of Valsalva. Pericardium/Pleura No evidence of a pericardial effusion. Hemodynamics Estimated pulmonary artery systolic pressure is 48 mmHg +/- 5 mmHg. (Upper normal is <40 mmHg). Estimated RA pressure is 15 mmHg. Summary Normal LV systolic function. The left ventricular ejection fraction (LVEF) is 65%. Dilated left atrium. Normal RV systolic function. The prosthetic aortic valve appears to be functioning normally for the type and size used. Mild tricuspid valve regurgitation. No hemodynamically significant mitral, pulmonic valve disease. Fibrocalcific changes are seen in the mitral annulus. Noninvasive hemodynamic assessment is consistent with mild pulmonary hypertension (40-50 mmHg), an elevated CVP. See above for further details. Authenticated by: documented in this encounter Plan of Treatment Not on file documented as of this encounter Procedures Procedure Name Priority Date/Time Associated Diagnosis Comments ECHOCARDIOGRAM REPORT 08/03/2019 10:33 AM EDT documented in this encounter Results * ECHOCARDIOGRAM REPORT (08/03/2019 10:33 AM EDT) Left Ventricular Ejection Fraction 65 % Anatomical Region Laterality Modality Other 08/03/2019 10:3 3 AM EDT Narrative Procedure Note Teodoro Majano MD - 08/03/2019 10:33 AM EDT Transthoracic Echocardiographic Report Name: RHETT Interpreting IHSAN GREENBERG Physician: : 1950 Referring ROBER HARRINGTON MD Physician: Age: 68 Visual Training [facility] Exam Date: 08/03/2019 Fellow: 10:33 AM CVT: PCP: Gender: Female Height 157.48 cm Weight 67.1328 kg Encounter #: BSA 1.68 m^2 Study IP Non-Unit BMI 27.07 kg/m^2 Location: Technical Fair-Good Quality: Type of Study: TTE procedure: 2D echocardiogram, M-Mode,Doppler , Color Doppler. Indications for Study:Syncope and Assessment of aortic valvulardisease. Tech. Comments Patient's preferred language is Chilean . Patient identified by name and date of . Doctor's order(s)verified. Supine BP: 122/43 mmHg Patient Status: Routine Left Ventricle Value Normal Value Normal LVIDd: 4.7 cm <5.7 cm Post. Wall 1.1 cm <1.2 cm Thickness: Septum 1.2 cm <1.2 cm LV FS: 34.04 % 30-40% Diastolic: Systolic 3.1 cm <4 cm LV Mass 235.14g Dimension: LV Mass Index: 140 <110Women<120 g/m^2 Men Left Atrium LA Dimension: 4 cm <3.92cm Atrium RA (apical 4): 3.15 cm <4.6 cm Findings/Conclusions Chambers LV Left ventricular systolic function is normal. The left ventricular ejection fraction (LVEF) is65% +/- 5%by the biplane summation of discs (Nunez's rule) method. LA The left atrial size is mildly increased. The left atrial volume index is 36 mL/m2 (normal:<35 mL/m2, mild: 35-41 mL/m2, moderate: 42-48 mL/m2, severe: >48 mL/m2). RV Normal right ventricular size and function. The tricuspid annular plane systolic excursion(TAPSE, a marker of RV systolic function) is normal at 18mm (normal >16 mm). RA Normal right atrium. Valves AV A prosthetic aortic valve is present. It is atissue valve (#21 Intuity rapid deployment SAVR). Prosthetic valve peak gradient is 38 mmHg, mean gradient is 23 mmHg. The aortic systolic accleration time (AT) was 79 ms and the ejection time (ET) 333 ms leaving the AT/ET 0.24. Severe stenosis is suggested by an AT>100 msand an AT/ET >0.35. This is consistent with a normally functioning prosthesis. MV Mitral annular fibrocalcific changes are presentand are moderate-severe. TV There is mild tricuspid regurgitation. PV Normal pulmonic valve. Great Vessels Normal sinus of Valsalva. Pericardium/Pleura No evidence of a pericardial effusion. Hemodynamics Estimated pulmonary artery systolic pressure is 48 mmHg +/- 5 mmHg. (Upper normal is <40 mmHg). Estimated RA pressure is 15 mmHg. Summary Normal LV systolic function. The left ventricular ejection fraction (LVEF) is 65%. Dilated left atrium. Normal RV systolic function. The prosthetic aortic valve appears to be functioning normally for the type and size used. Mild tricuspid valve regurgitation. No hemodynamically significant mitral, pulmonic valve disease. Fibrocalcific changes are seen in the mitral annulus. Noninvasive hemodynamic assessment is consistent with mild pulmonary hypertension (40-50 mmHg), an elevated CVP. See above for further details. Authenticated by: Kamar Abbott MD EC NON-INVASIVE CARDIOVASCULAR E dited Result - Final documented in this encounter Visit Diagnoses Not on filedocumented in this encounter Care Teams Service Desk Technician Relationship Specialty Start Date End Date Grayson Espitia MD [address] [place] [address] PCP - General Family Medicine 08/02/19 documented as of this encounter
--- OUTSIDE RECORDS SUMMARY | 2025-02-09 10:03 | XMS_ITS | Encounter Summary ---
Author Organization [facility] Address [id number] [address] [place] [address] Care Team Providers Care Feed Adviser Name Role Phone Grayson Espitia MD Primary Care Provider Reason for Visit * Reason Onset Date Comments Care Navigation 12/20/2022 Encounter Details Date Type Department Care Team (Late st Contact Info) Description 12/20/2022 Telephone [facility] Neurology [address] [place] [address] Yaneth Mejia, ROGE Care Navigation [...] Encounter - Yaneth Mejia RN - 12/20/2022 10:46 AM EDT Contact Type: Direct contact - Phone call with patient - general Reason For Call: Neurology Care Navigation Update Assessment: Delmar, spouse and PHI designee, reports that patient is not doing well at home. She ishaving trouble walking and getting around the house due to weakness. He is trying to get her to drink fluids and eat food. She does not have any trouble chewing or swallowing. He does not feel that she is depressed but she does sleep a lot. Delmar feels the generalized weakness is due to not eatingenough and not being active enough. Patient does perk up when she has visitors. Delmar denies any signs of infection or dehydration. He does not feel she needs to be hospitalized. Delmar already lefta message this morning at patient's PCP's office requesting home health care. Patient was seen by PCP last week on Tuesday. Delmar is looking to have in home physical therapy to improve strength and gait and home health aide to help him with patient's ADL's (showering). They have a walk in shower and a shower chair. Delmar did give CN permission to contact PCP's office to facilitate his request for home health care. Plan/Goals: PCP to arrange home health care for patient Intervention: CN left message on PCP's nurse line regarding home health care request by spouse and left direct line for call back. Questions: None at this time. documented in this encounter Plan of Treatment [...] documented as of this encounter Care Teams Feed Adviser Relationship Specialty Start Date End Date Grayson Espitia MD PCP - General Family Medicine 12/21/21 documented as of this encounter
--- OUTSIDE RECORDS SUMMARY | 2025-02-09 10:03 | XMS_ITS | Encounter Summary ---
Author Organization [facility] Address [address] [place] [address] Care Team Providers Care Greenhouse Florist Name Role Phone Grayson Espitia MD Unavailable [phone] Grayson Espitia MD Unavailable [phone] Grayson Espitia MD Primary Care Provider Walker Monroy MD Unavailable Farhad Harper MD Unavailable [phone] Shannen Velazquez RN Unavailable [phone] Kirstie Mcneil Unavailable [phone] Grayson Espitia MD Unavailable [phone] Encounter Details Date Type Department Care Team (Late st Contact Info) Description 01/28/2023 Orders Only [facility] [place] [facility] [address] [place] [address] Grayson Espitia MD [address] [facility] [address] [place] [address] (Fax) Anxiety associated with depression Social History Tobacco Use Types Packs/Day Years [...] and Family Not on file 12/15/2022 Attends Yarsanism Services Not on file 12/15 Active Member [...] Visit [facility] 112 [facility] 100 [place] [address] Grayson Espitia MD 112 [facility] 100 [place] [address] (Fax) 11/05/2025 1:05 PM EDT Office [facility] [address] [place] [phone] Lula Gasca MD [address] [place] [address] documented as of this encounter Visit Diagnoses Diagnosis Anxiety associated with depression Dysthymic disorder documented in this encounter Care Teams Greenhouse Florist Relationship Specialty Start Date End Date Grayson Espitia MD [address] [place] [address] (Fax) PCP - [employer] 05/23/21 11/21/23 Grayson Espitia MD [address] [place] [address] (Fax) PCP - [employer] 05/23/22 05/22/24 Grayson Espitia MD [address] [place] [address] (Fax) PCP - General Family Medicine 10/12/22 Grayson Espitia MD [address] [place] [address] (Fax) PCP - Medical [place] 05/23/2405/22 Walker Monroy MD [address] [place] [address] Referring Physician Neurology 06/30/23 Farhad Harper MD [address] [place] [address] Referring Physician Cardiology 06/30/23 Shannen Velazquez, ROGE [address] [place] [address] Registered Nurse Family Medicine 11/09/23 Kirstie Mcneil [facility] [address] [place] [address] Manager Architecture Behavioral Health 11/29/22 10/14/23 documented as of this encounter
--- OUTSIDE RECORDS SUMMARY | 2025-02-09 10:04 | XMS_ITS | Encounter Summary ---
Author Organization [facility] Address [address] [facility] [place] [address] Care Team Providers Care Infrastructure Engineer Name Role Phone Grayson Espitia MD Primary Care Provider [phone] Encounter Details Date Type Department Care Team (Late st Contact Info) Description 02/24/2021 Abstract [facility] [address] [place] [address] Anshul Harper MD [address] [place] [address] Social History Tobacco Use Types [...] Description 05/30/2025 11:00 AM EST Office Visit [facility] [address] [place] [address] Anshul Harper MD [address] [place], [place] [id number] 6 month f/u lab/ekg documented as of this encounter Visit Diagnoses Not on filedocumented in this encounter Additional Health Concerns Assessment Noted Time A Body Mass Index follow-up plan has been documented for the patient 02/25/2020 9:59 AM EDT documented as of this encounter Care Teams Infrastructure Engineer Relationship Specialty Start Date End Date Grayson Espitia MD PCP - General 04/17/19 documented as of this encounter
--- OUTSIDE RECORDS SUMMARY | 2025-02-09 10:04 | XMS_ITS | Encounter Summary ---
Author Organization [facility] Address [address] [facility] [place] [address] Care Team Providers Care Optometrist/Practice Owner Name Role Phone Grayson Espitia MD Primary Care Provider Walker Monroy MD Unavailable Farhad Harper MD Unavailable [phone] Shannen Velazquez RN Unavailable [phone] Grayson Espitia MD Unavailable [phone] Reason for Visit * Reason Comments Med Refill Encounter Details Date Type Department Care Team (Late st Contact Info) Description 08/08/2024 Refill [facility] [address] [place] [address] Grayson Espitia MD 112 [facility] [address] [place] [address] (Fax) Mixed hyperlipidemia Social History Tobacco Use Types Packs/Day Years [...] week 09/05/2023 How often do you attend [facility] or restorationist services? More than 4 times per year 09/05/2023 Do you belong to any clubs o r organizations such as hoahaoism groups, unions, fraternal or athletic groups, or [...] Recorded Patient Health Questionnaire-2 Score 6 06/07/2023 [facility] Occupat ional [facility] - Occupational Stress Questionnaire Answer Date Recorded [...] place to sleep or slept in a correction (including now)? No 09/05/2023 Education Answer Date [...] Office Visit [facility] [address] [address] Grayson Espitia MD [address] [address] (Fax) 11/05/2025 1:05 PM EDT Office Visit [facility] [address] [place] [address] Lula Gasca MD [address] [place] [address] documented as of this encounter Visit Diagnoses Diagnosis Mixed hyperlipidemia Mixed hyperlipidemia documented in this encounter Additional Health Concerns Assessment Noted Time PHQ-9 Depression Total Score: 2 07/11/19 24 2:00 PM EST documented as of this encounter Care Teams Optometrist/Practice Owner Relationship Specialty Start Date End Date Grayson Espitia MD [address] [address] PCP - General Family Medicine 10/12/22 Grayson Espitia MD 112 [facility] [address] [place] [address] PCP - Medical [place] 05/23/2405/22 Walker Monroy MD [address] [place] [address] Referring Physician Neurology 06/30/23 Farhad Harper MD [address] [place] [address] Referring Physician Cardiology 06/30/23 Shannen Velazquez, RN [address] [place] [address] Registered Nurse Family Medicine 11/09/23 documented as of this encounter
--- OUTSIDE RECORDS SUMMARY | 2025-02-09 10:04 | XMS_ITS | Encounter Summary ---
Author Organization [facility] Address [id number] [address] [place] [address] Care Team Providers Care Corn Breeder Name Role Phone Grayson Espitia MD Primary Care Provider Encounter Details Date Type Department Care Team (Late st Contact Info) Description 09/10/2021 Telephone [facility] Neurology [address] [place] [phone] Kirk Jones Social History Tobacco Use Types Packs/Day Years Used Date Smoking Tobacco: Never Assessed Childcare Answer Date Recorded Childcare Unknown 11/01/2018 Employment Answer Date Recorded Employment Unknown 11/01/2018 Purpose - Life Answer Date Recorded Purpose and direction in life Unknown Comments Unknown Sex and Gender Information Value Date Recorded Sex Assigned at Not on file Legal Sex Female 11:43 AM EDT Gender Identity Not on file Sexual Orientation Not on file documented as of this encounter Miscellaneous Notes * Telephone Encounter - Kirk Jones - 09/10/2021 8:41 AM EDT Office Notes faxed to Shannen @ [phone] documented in this encounter Plan of Treatment Not on file documented as of this encounter Visit Diagnoses Not on filedocumented in this encounter Additional Health Concerns Infection Onset Date Last Indicated Resolved Time COVID-19 Positive Comment:+ swab from transferring facility 12/31/2021 12/31/2021 01/21/2022 11:12 PM EDT documented as of this encounter Care Teams Corn Breeder Relationship Specialty Start Date End Date Grasyon Espitia MD PCP - General Family Medicine 12/21/21 documented as of this encounter
--- OUTSIDE RECORDS SUMMARY | 2025-02-09 10:04 | XMS_ITS | Encounter Summary ---
Author Organization [facility] Address [address] [place] [address] Care Team Providers Care Electrophysiologist Name Role Phone Grayson Espitia MD Primary Care Provider [phone] Walker Monroy MD Unavailable Farhad Harper MD Unavailable [phone] Shannen Velazquez RN Unavailable [phone] Grayson Espitia MD Unavailable [phone] Encounter Details Date Type Department Care Team (Late st Contact Info) Description 02/07/2025 Telephone [facility] [address] [place] [address] Shannen Velazquez, RN [address] [facility] [address] [place] [address] Social History Tobacco Use Types Packs/Day Years [...] How often do you attend chur or yazidism services? More than 4 times per year 09/05/2023 Do you belong to any clubs o r organizations such as jew groups, unions, fraternal or athletic groups, or [...] Date Recorded Patient Health Questionnaire-2 Score 0 08/21/2024 [facility] Occupat ional Health - Occupational Stress [...] place to sleep or slept in a alf (including now)? No 09/05/2023 Education Answer Date [...] on file documented as of this encounter Progress Notes * Shannen Velazquez RN - 02/07/2025 3:07 PM EDT Howard ROBERTS, reports that pt is itching all over. No rash, applying lotion. Would like to know if pt is able to take any medication to help relieve the itching <February 07, 2025, 15:46 - Shannen Velazquez RN> Called Howard, discussed that PCP states it probably a sign of kidney worsening an elevated phosphorus levels Discussed PCP wants pt to have 2 labs completed, fasting is best. Need to avoid phosphorus containing foods and keep her drinking plenty of water. Reviewed list sentby PCP with Jam[facility]. He wrote list down. <February 07, 2025, 16:09 - Shannen Velazquez RN> faxed lab orders to [facility] <February 08, 2025, 08:45 - Shannen Velazquez RN> fax was sent successfully documented in this encounter Miscellaneous Notes * Telephone Encounter - Grayson Espitia MD - 02/07/2025 3:22 PM EDT This is probably a sign of kidney worsening an elevated phosphorus levels. I have pended 2 laboratories they need to get. They need to avoid phosphorus containing foods and keep her drinking plenty of water. Lower-phosphorus alternatives to choose: Fresh fruits and vegetables Rice milk, unenriched Breads Pasta Rice Fish Dongola and rice cereals Soda without phosphate additives Home-brewed ice tea High-phosphorus foods to avoid or limit: Dairy foods Beans Lentils Nuts Bran cereals Oatmeal Nazanin and other drinks with phosphate additives Some bottled ice tea Some foods may also contain phosphate additives that could add up to 1000 mg/day of phosphorus to your intake. Since your doctor has likely asked you to limit your phosphorous to 800-1000mg/day, you should be aware of foods with phosphate additives. Some foods that contain these additives are: Processed meats Instant puddings and sauces Spreadable cheeses Beverage products documented in this encounter Plan of Treatment Upcoming Encounters Date Type Department Care Team (Late st Contact Info) Description 03/05/2025 2:30 PM EDT Office Visit [facility] Family Medicine 112 [facility] 100 [place] [address] Grayson Espitia MD 112 [facility] 100 [place] [address] 11/05/2025 1:05 PM EDT Office Visit [facility] [address] [place] [address] Lula Gasca MD [address] [place] [address] Scheduled Orders Name Type Priority Associated Diagnoses Orde r Schedule Phosphorus Lab Routine Chronic kidney disease, stage 4 (severe) (HCC) Expected: 02/07/2025 (Approximate), Expires: 02/07/2026 Basic metabolic panel Lab Routine Chronic kidney disease, stage 4 (severe) (HCC) Expected: 02/07/2025 (Approximate), Expires: 02/07/2026 documented as of this encounter Visit Diagnoses Diagnosis Anxiety associated with depression- Primary Dysthymic disorder Chronic kidney disease, stage 4 (severe) (HCC) Itching Unspecified pruritic disorder documented in this encounter Additional Health Concerns Assessment Noted Time PHQ-9 Depression Total Score: 2 07/11/19 24 2:00 PM EST documented as of this encounter Care Teams Electrophysiologist Relationship Specialty Start Date End Date Grayson Espitia MD [address] [address] PCP - General Family Medicine 10/12/22 Grayson Espitia MD [address] [address] PCP - Medical [facility] 05/23/2405/22 Walker Monroy MD [address] [place] [address] Referring Physician Neurology 06/30/23 Farhad Harper MD [address] [place] [address] Referring Physician Cardiology 06/30/23 Shannen Velazquez, ROGE [address] [facility] [address] [place] [address] Registered Nurse Family Medicine 11/09/23 documented as of this encounter
--- OUTSIDE RECORDS SUMMARY | 2025-02-09 10:04 | XMS_ITS | Encounter Summary ---
Author Organization [facility] Address [address] [place] [address] Care Team Providers Care Gate Watch Name Role Phone Grayson Espitia MD Primary Care Provider Walker Monroy MD Unavailable Farhad Harper MD Unavailable [phone] Shannen Velazquez RN Unavailable [phone] Grayson Espitia MD Unavailable [phone] Encounter Details Date Type Department Care Team (Late st Contact Info) Description 06/11/2024 Orders Only [facility] Family Medicine 112 [facility] [address] [place] [id number] Grayson Espitia MD 112 [facility] [address] [place] [address] Social History Tobacco Use Types Packs/Day Years [...] How often do you attend chur or hoahaoism services? More than 4 times per year 09/05/2023 Do you belong to any clubs o r organizations such as episcopalian groups, unions, fraternal or athletic groups, or [...] Recorded Patient Health Questionnaire-2 Score 6 06/07/2023 [facility] Occupat ional [facility] - Occupational Stress Questionnaire Answer [...] No 09/05/2023 Housing Stability Vital Sign Answer Lusi e Recorded In the last 12 months, [...] place to sleep or slept in a group home (including now)? No 09/05/2023 Education Answer Date [...] [facility] [address] [address] Grayson Espitia MD [address] [address] (Fax) 11/05/2025 1:05 PM EDT Office Visit [facility] [address] [place] [address] Lula Gasca MD [address] [place] [address] documented as of this encounter Visit Diagnoses Not on filedocumented in this encounter Additional Health Concerns Assessment Noted Time PHQ-9 Depression Total Score: 2 07/11/19 24 2:00 PM EST documented as of this encounter Care Teams Gate Watch Relationship Specialty Start Date End Date Grayson Espitia MD [address] [address] (Fax) PCP - General Family Medicine 10/12/22 Grayson Espitia MD 112 [facility] [address] [place] [address] PCP - Medical [place] 05/23/2405/22 Walker Monroy MD [address] [place] [address] Referring Physician Neurology 06/30/23 Farhad Harper MD [address] [place] [address] Referring Physician Cardiology 06/30/23 Shannen Velazquez, ROGE [address] [place] [address] Registered Nurse Family Medicine 11/09/23 documented as of this encounter
--- OUTSIDE RECORDS SUMMARY | 2025-02-09 10:04 | XMS_ITS | Clinical Summary ---
Author Organization [facility] Address [address] [place] [address] Care Team Providers Care Tap Out Operator Name Role Phone Grayson Espitia MD Primary Care Provider Walker Monroy MD Unavailable Farhad Harper MD Unavailable [phone] Shannen Velazquez RN Unavailable [phone] Grayson Espitia MD Unavailable [phone] Allergies Active Allergy Reactions Criticality Noted Date Comments Latex Anaphylaxis High 05/10/2019 Other Reaction(s): Anaphylactic Shock, nose runs, eyes swell, itching Other reaction(s): nose runs, eyes swell, itching, unknown Eyes swell shut, rash Eyes swell shut, rash Eyes swell shut, rash Medications apixaban (Eliquis) 5 MG tablet Take 1 tablet by mouth in the morning and 1 tablet before bedtime. 10/12/19 23 Active Blood Glucose Monitoring Suppl (ONE TOUCH ULTRA 2) w/Device kit 08/31/19 23 Active cholecalciferol (Vitamin D-3) 125 MCG (5000 UT) capsuleIndications: Vitamin D Deficiency Take 5,000 Units by mouth Daily Active dulaglutide (Trulicity) 0.75 MG/0.5ML solution pen-injectorIndicat ions:Type 2 Diabetes Mellitus Inject 0.75 mg under the skin once a week On Tuesday Active magnesium 200 MG tablet Take 200 mg by mouth in the evening Active calcium citrate 250 MG tabletIndications:H ypocalcemia Take 1 tablet by mouth 1 (one) time each day Active aspirin 81 MG EC tablet Take 81 mg by mouth in the morning. 11/25/19 Active carvedilol (Coreg) 6.25 MG tablet Take 6.25 mg by mouth in the morning and 6.25 mg in the evening. Take with meals. Active ipratropium (Atrovent) 0.06 % nasal sprayIndications:An xiety associated with depression Administer 2 sprays into each nostril in the morning and 2 sprays at noon and 2 sprays in the evening and 2 sprays before bedtime. 15 mL 07/31/19 25 Active Additional Information Patient not taking.Reported on 01/03/2025 atorvastatin (Lipitor) 40 MG tabletIndications:M ixed hyperlipidemia Take 1 tablet (40 mg) by mouth Daily 90 tablet 1 08/21/19 25 025 Active dilTIAZem CD (Cardizem CD) 180 MG 24 hr capsuleIndications: Primary hypertension Take 1 capsule (180 mg) by mouth Daily 90 capsule 1 08/21/19 25 025 Active donepezil (Aricept) 10 MG tabletIndications:C hronic organic brain syndrome Take 2 tablets (20 mg) by mouth at bedtime 180 tablet 1 09/04/19 25 025 Active levothyroxine (Synthroid, Levoxyl) 88 MCG tabletIndications:A cquired hypothyroidism Take 1 tablet (88 mcg) by mouth Daily 90 tablet 1 10/07/19 25 025 Active glucose blood (TRADE TO REBATETouch Ultra) test stripIndications:Ty pe 2 diabetes mellitus with both eyes affected by mild nonproliferative retinopathy without macular edema, without long-term current use of insulin (HCC) 1 each by Other route Daily 100 each 3 11/13/19 25 026 Active furosemide (Lasix) 20 MG tabletIndications:P rimary hypertension,Chroni c diastolic congestive heart failure, NYHA class 1 (HCC),Edema, unspecified type 2 tablets every am (= 40 mg) and 1 tablet (=20 mg) daily before supper 90 tablet 1 01/08/20 25 Active DULoxetine (Cymbalta) [address] capsuleIndications: Anxiety associated with depression Take 2 capsules (40 mg) by mouth Daily Do not crush or chew. 60 capsule 2 01/08/20 25 025 Active ALPRAZolam (Xanax) 0.25 MG tabletIndications:A nxiety associated with depression Take 0.5 tablets (0.125 mg) by mouth in the morning and 0.5 tablets (0.125 mg) before bedtime. 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 2 diabetes mellitus (HCC) 1 Lancet Daily 100 each 3 01/30/20 25 026 Active Lancets (OneTouch Delica Plus [id number]) miscIndications:Sta ge 3 chronic kidney disease due to type 2 diabetes mellitus (HCC) 1 Lancet Daily 100 each 3 11/30/19 24 025 Discontin ued(Reord er) ARIPiprazole (Abilify) 2 MG tabletIndications:P ersistent disorder of initiating or maintaining sleep,Vascular dementia with behavior disturbance (HCC) Take 0.5 tablets (1 mg) by mouth in the evening 45 tablet 1 09/04/19 25 025 Discontin ued(Thera py completed ) ALPRAZolam (Xanax) 0.25 MG tabletIndications:A nxiety associated with depression Take 1 tablet (0.25 mg) by mouth in the morning and 1 tablet (0.25 mg) before bedtime. 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 Basal ganglia infarction 10/25/2022 Ischemic stroke 10/25/2022 Coronary artery disease invo lving inupiat coronary artery of inupiat heart without angina pectoris 10/25/2022 Chronic anemia 10/25/2022 Cor pulmonale, chronic 10/25/2022 Diastolic congestive heart failure, NYHA class 1 10/25/2022 H/O: CVA (cerebrovascular accident) 10/25/2022 History of aortic valve replacement 10/25/2022 Hx of CABG 10/25/2022 Ischemic nephropathy with hypertensive nephroscl erosis 10/25/2022 Hypertension 10/25/2022 Left carotid artery stenosis 10/25/2022 LVH (left ventricular hypertrophy) 10/25/2022 Hyperlipidemia 10/25/2022 Moderate episode of recurrent major depressive d isorder 10/25/2022 Neurogenic orthostatic hypotension 10/25/2022 Nocturnal hypoxemia 10/25/2022 Paroxysmal atrial fibrillation 10/25/2022 Encephalomalacia 10/25/2022 Persistent disorder of initiating or maintaining sleep 10/25/2022 Primary osteoarthritis of left knee 10/25/2022 Sequela, post-stroke 10/25/2022 Vascular dementia with behavior disturbance 09/2022 History of falling 10/20/2022 Ataxia 10/20/2022 Generalized weakness 10/20/2022 Other specified disorders of bone density and structure, right thigh 06/08/2021 History of basal cell carcinoma (BCC) 11/03/2020 Renal artery stenosis 10/10/2020 Chronic organic brain syndrome 09/28/2020 Hyperglycemia due to type 2 diabetes mellitus Retinal hemorrhage, bilateral 07/03/2020 Controlled substance agreement signed 05/19/2020 Acquired hypothyroidism 11/13/2019 Chronic fatigue syndrome 11/12/2019 Postherpetic neuralgia 10/29/2019 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 10/04/2019 Persistent cognitive impairment 10/04/2019 Polypharmacy 10/04/2019 Gastroesophageal reflux disease 08/27/2019 Hemiplegia of nondominant si de as late effect of cerebrovascular disease 08/20/2019 Slow transit constipation 08/20/2019 Cervical stenosis of spinal canal 08/02/2019 Abdominal aortic atherosclerosis 07/02/2019 Thoracic aorta atherosclerosis 07/02/2019 Overweight (BMI 25.0-29.9) 04/11/2019 Vitamin D deficiency 04/11/2019 Hypomagnesemia 12/19/2018 Vitreous degeneration of both eyes 05/04/2018 Nonexudative age-related mac ular degeneration, bilateral, early dry stage 08/25/2017 Nuclear senile cataract 08/25/2017 Cardiomegaly 07/21/2017 Surgical menopause 03/10/2017 Diabetic renal disease 03/07/2017 Mild nonproliferative diabet ic retinopathy associated with type 2 diabetes mellitus 01/19/2017 Chronic allergic rhinitis 06/07/2016 Mitral valve disorder 03/01/2016 Systolic murmur 08/27/2015 Benign essential hypertension 03/05/2015 Hypokalemia 03/05/2015 Euthyroid sick syndrome 03/03/2015 Long QT syndrome 03/03/2015 Microalbuminuria 03/03/2015 Ischemic vascular disease 11/23/1904 Resolved Problems Problem Noted Date Diagnosed Date Resolved Date Low serum albumin 11/03/2022 12/01/2022 Abnormality of albumin 10/25/202212/01 Acute kidney injury superimp osed on chronic kidney disease 10/25/2022 12/01/2022 Herpes zoster without complication 10/25/2022 07/12/2023 Menopause 04/28/2021 12/01/2022 Multi-infarct dementia with delirium 07/31/2020 07/12/2023 Stage 4 chronic kidney disease 07/03/2020 07/12/2023 Late effects of cerebrovascular disease 08/20/2019 07/12/2023 Acute postoperative respiratory failure 08/02/2019 07/12/2023 Fall 08/01/2019 12/01/2022 Acute cerebral infarction 07/07/2019 CAD, multiple vessel 07/03/2019 024 Encounters Date Type Department Care Team Description 02/07/[address] [facility] [address] [place] [address] Shannen Velazquez, ROGE 02/05/2025 Patient Outreach [facility] [address] [place] [address] Shannen Velazquez, ROGE 02/04/2025 Patient Outreach [facility]OM[facility] [address] [place] [address] Shannen Velazquez RN 01/29/2025 Patient Outreach [facility]OM[facility] [address] [place] [address] Shannen Velazquez RN 01/28/2025 Patient Outreach [facility] [address] [place] [address] Shannen Velazquez RN 01/22/2025 Patient Outreach [facility] [address] [place] [address] Shannen Velazquez RN 01/07/2025 Patient Outreach [facility] [address] [place] [address] Shannen Velazquez RN 01/03/2025 Patient Outreach [facility] [address] [place] [address] Shannen Velazquez RN 12/31/[address] [facility] [address] [place] [address] Shannen Velazquez RN 12/28/2024 Patient Outreach [facility] [address] [place] [address] Shannen Velazquez RN 12/27/2024 Telephone [facility] [address] [place] [address] Grayson Espitia MD 12/03/[address] [address] [place] [address] Graysno Espitia MD 11/30/2024 Patient Outreach [facility] [address] [place] [address] Shannen Velazquez RN 11/21/2024 Abstract [facility] [address] [place] [address] Grayson Espitia MD 11/15/2024 Clinisync Result Encounter [facility] External Department Unsolicited Provider, Generic External Data 11/12/2024 Patient Outreach [facility] [address] [place] [address] Shannen Velazquez RN from Last 3 Months Immunizations Immunization Administration Dates Next Due Influenza, High Dose Seasona l, Preservative Free 06/23/2021,03/25/2018 Influenza, injectable, quadr ivalent, preservative free 03/01/2020,03/25/2018,03/01/2016 Influenza, recombinant, quad rivalent, injectable, preservative free 02/28/2020 Moderna Bivalent Booster Vaccination 03/19/2022 Moderna SARS-CoV-2 Vaccination 08/11/2021 Pneumococcal Conjugate PCV 13 12/20/2016 SARS-COV-2 (COVID-19) vaccin e, mRNA, spike protein, LNP, bivalent, PF 03/19/2022 Zoster, Recombinant 11/21/2023,06/24/2023 Family History Medical History Relation Name Comments Cancer Father Alcohol abuse Mother Diabetes Mother Stroke Mother No Known Problems Other Multiple myeloma Neg Hx Relation Name Status Comments Father Mother Other Alive spouse Social History Tobacco Use Types Packs/Day Years Used Date Smoking Tobacco: Never Smokeless Tobacco: Never Tobacco Cessation:Counseling Given: Yes Alcohol Use Standard Drinks/Week Comments Yes 1 [...] often do you attend chur ch or jainism services? More than 4 times per year 09/05/2023 Do you belong to any clubs o r organizations such as christian groups, unions, fraternal or athletic groups, or [...] Recorded Patient Health Questionnaire-2 Score 0 08/21/2024 [facility] [place] [facility] Occupat ional [facility] - Occupational Stress [...] place to sleep or slept in a jail (including now)? No 09/05/2023 Education Answer Date [...] file Not on file Not on file Last Filed Vital Signs Vital Sign Reading Time Taken Comments Blood Pressure 112/70 08/20/2024 3:02 PM EDT Pulse 71 08/20/2024 3:02 PM EDT Temperature - - Respiratory Rate - - Oxygen Saturation 99% 08/20/2024 3:02 PM EDT Inhaled Oxygen Concentration - - Weight 58.5 kg (129 lb) 09/18/2024 4:33 PM EDT Height 158.8 cm (5' 2.5 ) 09/18/2024 4:33 PM EDT Body Mass Index 23.22 09/18/2024 4:33 PM EDT Plan of Treatment Upcoming Encounters Date Type Department Care Team (Late st Contact Info) Description 03/05/2025 2:30 PM EDT Office Visit [facility] 112 [facility] 100 [place] [address] Grayson Espitia MD 112 [facility] 100 [place] [address] 11/05/2025 1:05 PM EDT Office Visit [facility] [address] [place] [address] Lula Gasca MD [address] [place] [address] Health Maintenance Due Date Last Done Comments Diabetes: Urine Protein Screening 04/10/2025 04/10/2024, 07/25/2022, 12/10/2021, Additional history exists Diabetes: Retinopathy Screening 07/06/2025 07/06/2024, 07/07/2023, 06/23/2023, Additional history exists Pneumococcal Vaccine: 65+ Years Discontinued 7 Colonoscopy Discontinued 01/07/2021 Colorectal Cancer Screening Discontinued Mammogram Discontinued 05/26/2021, 08/2021, 05/26/2021 Influenza Vaccine Discontinued 06/23/2021, , 02/28/2020, Additional history exists Diabetes: Hemoglobin A1C Discontinued 025, 03/03/2023, 05/31/2022, Additional history exists CT Colonography Discontinued FIT-DNA Discontinued FIT Discontinued FOBT Discontinued Sigmoidoscopy Discontinued Procedures Procedure Name Priority Date/Time Associated Diagnosis Comments ALL MAGNESIUM Routine 11/15/2024 12:18 PM EDT DIABETIC RETINOPATHY SCREENING - OU - BOTH EYES Routine 07/06/2024 8:35 AM EST HEMOGLOBIN A1C Routine 05/24/2024 2:44 PM EST Stage 3 chronic kidney disease due to type 2 diabetes mellitus (HCC) MICROALBUMIN, URINE QUANT Routine 12/10/2021 12:00 PM EDT BI MAMMOGRAM SCREENING BILATERAL Routine 05/26/2021 12:00 PM EST Type 2 diabetes mellitus with diabetic chronic kidney disease (HCC) Mixed hyperlipidemia Hypomagnesemia Hypokalemia Long QT syndrome Slow transit constipation Encounter for screening for other disorder Essential (primary) hypertension Encounter for general adult medical examination without abnormal findings Stage 3 chronic kidney disease ([facility]-HCC) Vitamin D deficiency, unspecified Proteinuria, unspecified Encounter for screening for osteoporosis Insomnia, unspecified Allergic rhinitis, unspecified Gastro-esophageal reflux disease without esophagitis Other half-way (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 Other postherpetic nervous system involvement Cardiomegaly Unspecified abnormal findings in urine Personal history of other malignant neoplasm of skin Sick-euthyroid syndrome Chronic fatigue, unspecified Hypothyroidism, unspecified long-term (current) use of anticoagulants Idiopathic sleep related nonobstructive alveolar hypoventilation Age-related nuclear cataract, bilateral Endocarditis, valve unspecified Nonrheumatic mitral (valve) insufficiency Presence of prosthetic heart valve Other disorder of circulatory system Cerebral infarction, unspecified (HCC) Major depressive disorder, recurrent, moderate (HCC) Asymptomatic postprocedural ovarian failure Other symptoms and signs involving cognitive functions and awareness Body mass index (BMI) 25.0-25.9, adult Vitreous degeneration, bilateral Type 2 diabetes mellitus with other circulatory complications (HCC) Unspecified sequelae of cerebral infarction Nonexudative age-related macular degeneration, bilateral, early dry stage Unspecified diastolic (congestive) heart failure (HCC) Cor pulmonale (chronic) (HCC) Type 2 diabetes mellitus with mild nonproliferative diabetic retinopathy without macular edema, bilateral (HCC) Menopausal and female climacteric states Other specified health status Atherosclerosis of aorta Pulmonary hypertension, unspecified (HCC) Hemiplegia and hemiparesis following cerebral infarction affecting left non-dominant side (HCC) Other specified counseling Encounter for screening mammogram for malignant neoplasm of breast COLONOSCOPY Routine 01/07/2021 12:00 PM EDT from Last 3 Months or Most Recently Relevant to Health Maintenance Results * ALL MAGNESIUM (11/15/2024 12:18 PM EDT) PT MAGNESIUM 2.2 1.6 - 2.6 mg/dL MHPT 11/15/2024 12:1 8 PM EDT 11/15/2024 12:20 PM EDT Narrative [facility] - 11/15/2024 12:42 PM EDT Original Ordering Provider: SHANNAN CRENSHAW Generic External Data Provider [facility] F ina Result [facility] * (ABNORMAL) Diabetic Retinopathy Screening - OU - Both Eyes (07/06/2024 8:35 AM EST) Anatomical Region Laterality Modality Head Other us Grayson Espitia MD OPHTH PHOTOGRAPHY Final Resu lt * (ABNORMAL) Hemoglobin A1c (05/24/2024 2:44 PM EST) Hemoglobin A1C 6.4(H) <5.7 % of total Hgb [facility] Comment: For someone without known diabetes, a [...] A1c for diagnosis of diabetes for children. Blood Venous blood specimen / Unknown 05/24/2024 2:44 PM EST 05/24/2024 2:45 PM EST Narrative [facility] - 05/25/2024 2:11 AM EST FASTING:NO FASTING: NO Resulting Agency Comment Performing Organization Information Site ID: QPT Name: [facility] [employer] [facility] Address: [address] [place] [address], [address] [place] [id number] Director: Stephan Kline MD Grayson Espitia MD LAB BLOOD ORDERABLES Final R esult Performing Organization Address City/[facility]/ZIP Co de Phone Number [facility] * MICROALBUMIN, URINE QUANT (12/10/2021 12:00 PM EDT) GENERIC LEGACY COMPONENT INTERNAL 1-1,500 [facility] GENERIC LEGACY COMPONENT INTERNAL 8.8 [facility] 12/10/2021 12:0 0 PM EDT Grayson Espitia MD [facility] Final Result Performing Organization Address City/[facility]/ZIP Co de Phone Number [facility] * Bilateral screening mammogram (05/26/2021 12:00 PM EST) Anatomical Region Laterality Modality Breast Bilateral Mammography Narrative 05/26/2021 12:00 PM EST PERFORMED AT [facility] LOCATION:[id number] Procedure Note CONVERSION, GENERIC - 11/26/2022 PERFORMED AT [facility] LOCATION:[id number] us Grayson Espitia MD IMG BI PROCEDURES Final Resu lt * Colonoscopy (01/07/2021 12:00 PM EDT) Anatomical Region Laterality Modality Endoscopy 01/07/2021 12:0 0 PM EDT Narrative 01/07/2021 12:00 PM EDT PERFORMED AT [facility] LOCATION:[id number] Procedure Note CONVERSION, GENERIC - 10/06/2022 PERFORMED AT [facility] LOCATION:[id number] Grayson Espitia MD ENDOSCOPY PROCEDURE ORDERABL ES Final Result from Last 3 Months or Most Recently Relevant to Health Maintenance Insurance [employer] Advance Directives Documents on File Type Date Recorded Patient Corporate Law Specialist Expl anation Power of Sociology Professor 12/15/2022 9:23 AM Shanika rowan Will Advance Directives and Shanika rowan Will 12/15/2022 9:22 AM Care Teams Tap Out Operator Relationship Specialty Start Date End Date Grayson Espitia MD [address] [place] [address] PCP - General Family Medicine 10/12/22 Grayson Espitia MD [address] [place] [address] PCP - Medical [facility] 05/23/2405/22 Walker Monroy MD [address] [place] [address] Referring Physician Neurology 06/30/23 Farhad Harper MD [address] [place] [address] Referring Physician Cardiology 06/30/23 Shannen Velazquez, RN [address] [address] Registered Nurse Family Medicine 11/09/23
--- OUTSIDE RECORDS SUMMARY | 2025-02-09 10:04 | XMS_ITS | Encounter Summary ---
Author Organization [facility] Address [address] [place] [address] Care Team Providers Care Burner Machine Operator Name Role Phone Grayson Espitia MD Primary Care Provider [phone] Walker Monroy MD Unavailable Farhad Harper MD Unavailable [phone] Shannen Velazquez RN Unavailable [phone] Grayson Espitia MD Unavailable [phone] Encounter Details Date Type Department Care Team (Late st Contact Info) Description 01/29/2025 Patient Outreach [facility] [address] [place] [address] Shannen Velazquez, RN [address] [facility] [address] [place] [address] Social History Tobacco Use Types Packs/Day Years [...] How often do you attend chur or restorationism services? More than 4 times per year 09/05/2023 Do you belong to any clubs o r organizations such as yazidi groups, unions, fraternal or athletic groups, or [...] Recorded Patient Health Questionnaire-2 Score 0 08/21/2024 [facility] of Occupat ional Health - Occupational Stress [...] Progress Notes * Shannen Velazquez RN - 01/29/2025 10:13 AM EDT Howard reports pt needs rx for lancets, sent to [facility]. documented in this encounter Plan of Treatment Upcoming Encounters Date Type Department Care Team (Late st Contact Info) Description 03/05/2025 2:30 PM EDT Office Visit [facility] [address] [facility] 100 [place] [address] Grayson Espitia MD 112 [facility] 100 [place] [address] 11/05/2025 1:05 PM EDT Office Visit [facility] [address] [place] [address] Lula Gasca MD [address] [place] [address] documented as of this encounter Visit Diagnoses Diagnosis Diabetic nephropathy associated with type 2 diabetes mellitus (HCC)- Primary Chronic organic brain syndrome Unspecified nonpsychotic mental disorder following organic brain damage Chronic anemia Unspecified anemia Stage 3 chronic kidney disease due to type 2 diabetes mellitus (HCC) documented in this encounter Additional Health Concerns Assessment Noted Time PHQ-9 Depression Total Score: 2 07/11/19 24 2:00 PM EST documented as of this encounter Care Teams Burner Machine Operator Relationship Specialty Start Date End Date Grayson Espitia MD [address] [place] [address] PCP - General Family Medicine 10/12/22 Grayson Espitia MD [address] [place] [address] PCP - Medical [facility] 05/23/2405/22 Walker Monroy MD [address] [place] [address] Referring Physician Neurology 06/30/23 Farhad Harper MD [address] [place] [address] Referring Physician Cardiology 06/30/23 Shannen Velazquez, ROGE [address] [facility] [address] [facility] [address] [place] [address] Registered Nurse Family Medicine 11/09/23 documented as of this encounter
--- OUTSIDE RECORDS SUMMARY | 2025-02-09 10:04 | XMS_ITS | Encounter Summary ---
Author Organization [facility] Address [id number] [address] [place] [address] Care Team Providers Care Salvage Mechanic Name Role Phone Grayson Espitia MD Primary Care Provider [phone] Encounter Details Date Type Department Care Team (Late st Contact Info) Description 08/12/2021 Orders Only [facility] External Film Storage [facility] [place] [address] Transcribe, Orders Support User Pain (Primary Dx); Face pain Social History Tobacco Use Types Packs/Day Years [...] documented as of this encounter Results * MRA head without contrast (08/12/2021 2:50 PM EDT) us Scanning Provider External IMG MRI ORDERABLES Fi nal Result * MR brain without contrast (08/12/2021 2:45 PM EDT) us Scanning Provider External IMG MRI ORDERABLES Fi nal Result * MRA neck without contrast (08/12/2021 2:30 PM EDT) us Scanning Provider External IMG MRI ORDERABLES Fi nal Result documented in this encounter Visit Diagnoses Diagnosis Pain- Primary Generalized pain Face pain Headache documented in this encounter Additional Health Concerns Infection Onset Date Last Indicated Resolved Time COVID-19 Positive Comment:+ swab from transferring facility 12/31/2021 12/31/2021 01/21/2022 11:12 PM EDT documented as of this encounter Care Teams Salvage Mechanic Relationship Specialty Start Date End Date Grayson Espitia MD PCP - General Family Medicine 12/21/21 documented as of this encounter
--- OUTSIDE RECORDS SUMMARY | 2025-02-09 10:04 | XMS_ITS | Encounter Summary ---
Author Organization [facility] Address [address] [place] [address] Care Team Providers Care Vice President Education Name Role Phone Grayson Espitia MD Primary Care Provider [phone] Walker Monroy MD Unavailable Farhad Harper MD Unavailable [phone] Shannen Velazquez RN Unavailable [phone] Grayson Espitia MD Unavailable [phone] Encounter Details Date Type Department Care Team (Late st Contact Info) Description 01/28/2025 Patient Outreach [facility] [address] [place] [address] Shannen Velazquez, RN [address] [facility] [address] [place] [address] Social History Tobacco Use Types Packs/Day Years [...] How often do you attend chur or taoist services? More than 4 times per year 09/05/2023 Do you belong to any clubs o r organizations such as alevism groups, unions, fraternal or athletic groups, or [...] Recorded Patient Health Questionnaire-2 Score 0 08/21/2024 [facility] of Occupat ional Health - [...] Progress Notes * Shannen Velazquez RN - 01/28/2025 8:54 AM EDT Howard LM for CM. Returned call to Howard, states pt has an occasionally hacky cough. No other symptom.Pt told Howard it was her allergies and started taking allergy medication otc. Offered appt, declined.Will call back if it does not improve. documented in this encounter Plan of Treatment Upcoming Encounters Date Type Department Care Team (Late st Contact Info) Description 03/05/2025 2:30 PM EDT Office Visit [facility] 112 [facility] 100 [place] [address] Grayson Espitia MD 112 [facility] 100 [place] [address] 11/05/2025 1:05 PM EDT Office Visit [facility] [address] [place] [address] Lula Gasca MD [address] [place] [address] documented as of this encounter Visit Diagnoses Diagnosis Chronic allergic rhinitis- Primary Essential (primary) hypertension Unspecified essential hypertension Chronic diastolic congestive heart failure, NYHA class 1 (HCC) documented in this encounter Additional Health Concerns Assessment Noted Time PHQ-9 Depression Total Score: 2 07/11/19 24 2:00 PM EST documented as of this encounter Care Teams Vice President Education Relationship Specialty Start Date End Date Grayson Espitia MD [address] [address] PCP - General Family Medicine 10/12/22 Grayson Espitia MD [address] [address] PCP - Medical [place] 05/23/2405/22 Walker Monroy MD [address] [place] [address] Referring Physician Neurology 06/30/23 Farhad Harper MD [address] [place] [address] Referring Physician Cardiology 06/30/23 Shannen Velazquez, ROGE [address] [address] Registered Nurse Family Medicine 11/09/23 documented as of this encounter
--- OUTSIDE RECORDS SUMMARY | 2025-02-09 10:04 | XMS_ITS | Encounter Summary ---
Author Organization [facility] Address [address] [place] [address] Care Team Providers Care Pinion Sorter Name Role Phone Grayson Espitia MD Primary Care Provider Walker Monroy MD Unavailable Farhad Harper MD Unavailable [phone] Shannen Velazquez RN Unavailable [phone] Grayson Espitia MD Unavailable [phone] Encounter Details Date Type Department Care Team (Late st Contact Info) Description 10/18/2024 Abstract [facility] [place] [address] Family Medicine 112 [facility] 100 [place] [address] Grayson Espitia MD 112 [facility] 100 [place] [address] Social History Tobacco Use Types Packs/Day Years [...] often do you attend chur ch or roman catholic services? More than 4 times per year 09/05/2023 Do you belong to any clubs o r organizations such as holiness groups, unions, fraternal or athletic groups, or [...] Recorded Patient Health Questionnaire-2 Score 0 08/21/2024 [facility] of Occupat ional Health - Occupational [...] place to sleep or slept in a chcf (including now)? No 09/05/2023 Education Answer Date [...] Visit [facility] [address] [address] Grayson Espitia MD [address] [address] (Fax) 11/05/2025 1:05 PM EDT Office Visit [facility] [address] [place] [address] Lula Gasca MD [address] [place] [address] documented as of this encounter Visit Diagnoses Not on filedocumented in this encounter Additional Health Concerns Assessment Noted Time PHQ-9 Depression Total Score: 2 07/11/19 24 2:00 PM EST documented as of this encounter Care Teams Pinion Sorter Relationship Specialty Start Date End Date Grayson Espitia MD [address] [address] (Fax) PCP - General Family Medicine 10/12/22 Grayson Espitia MD 112 [facility] [address] [place] [address] PCP - Medical [place] 05/23/2405/22 Walker Monroy MD 1[address] [place] [address] Referring Physician Neurology 06/30/23 Farhad Harper MD 1100 [place] [address] Referring Physician Cardiology 06/30/23 Shannen Velazquez, ROGE [address] [facility] 230 [place] [address] Registered Nurse Family Medicine 11/09/23 documented as of this encounter
--- OUTSIDE RECORDS SUMMARY | 2025-02-09 10:04 | XMS_ITS | Encounter Summary ---
Author Organization [facility] Address [address] [place] [address] Care Team Providers Care Costumer Name Role Phone Grayson Espitia MD Unavailable [phone] Grayson Espitia MD Unavailable [phone] Grayson Espitia MD Primary Care Provider [phone] Walker Monroy MD Unavailable Farhad Harper MD Unavailable [phone] Shannen Velazquez RN Unavailable [phone] Kirstie Mcneil Unavailable [phone] Grayson Espitia MD Unavailable [phone] Encounter Details Date Type Department Care Team (Late st Contact Info) Description 11/05/2022 Abstract [facility] [address] [facility] 350 [place] [address] Lula Gasca MD [address] [facility] 350 [place] [address] Social History Tobacco Use Types Packs/Day Years Used Date Smoking Tobacco: Never Smokeless Tobacco: Never Tobacco Cessation:Counseling Given: Not Answered Alcohol Use Standard Drinks/Week Comments Yes 0 (1 standard drink = 0.6 oz pur e alcohol) Caffeine: 2-4 PHQ-2 Answer Date Recorded Patient Health Questionnaire-2 Score 1 10/25/2022 Comments Unknown Sex and Gender Information Value Date Recorded Sex Assigned at Not on file Legal Sex Female 6:51 PM EDT Gender Identity Not on file Sexual Orientation Not on file documented as of this encounter Plan of Treatment Upcoming Encounters Date Type Department Care Team (Late st Contact Info) Description 03/05/2025 2:30 PM EDT Office Visit [facility] Family Medicine [address] [place] [address] Grayson Espitia MD [address] [place] [address] (Fax) 11/05/2025 1:05 PM EDT Office Visit [facility] [address] [place] [address] Lula Gasca MD [address] [place] [address] documented as of this encounter Visit Diagnoses Not on filedocumented in this encounter Care Teams Costumer Relationship Specialty Start Date End Date Grayson Espitia MD [address] [place] [address] (Fax) PCP - [employer] 05/23/21 11/21/23 Grayson Espitia MD [address] [address] (Fax) PCP - [employer] 05/23/22 05/22/24 Grayson Espitia MD [address] [place] [address] (Fax) PCP - General Family Medicine 10/12/22 Grayson Espitia MD [address] [place] [address] (Fax) PCP - Medical [place] 05/23/2405/22 Walker Monroy MD [address] [place] [address] Referring Physician Neurology 06/30/23 Frahad Harper MD [address] [place] [address] Referring Physician Cardiology 06/30/23 Shannen Velazquez RN [address] [place] [address] Registered Nurse Family Medicine 11/09/23 Kirstie Mcneil [facility] [address] [place] [address] Corn Lab Technician Behavioral Health 11/29/22 10/14/23 documented as of this encounter
--- OUTSIDE RECORDS SUMMARY | 2025-02-09 10:04 | XMS_ITS | Encounter Summary ---
Author Organization [facility] Address [address] [place] [address] Care Team Providers Care Driver Supervisor Name Role Phone Grayson Espitia MD Primary Care Provider [phone] Walker Monroy MD Unavailable Farhad Harper MD Unavailable [phone] Shannen Velazquez RN Unavailable [phone] Grayson Espitia MD Unavailable [phone] Encounter Details Date Type Department Care Team (Late st Contact Info) Description 10/08/2024 Orders Only [facility] [address] [facility] [address] [place] [address] Grayson Espitia MD 112 [facility] [address] [place] [address] Social History Tobacco Use Types Packs/Day Years [...] How often do you attend chur or judaism services? More than 4 times per year 09/05/2023 Do you belong to any clubs o r organizations such as worship groups, unions, fraternal or athletic groups, or [...] Patient Health Questionnaire-2 Score 0 08/21/2024 [facility] of Occupat ional [facility] - Occupational Stress Questionnaire Answer Date [...] place to sleep or slept in a halfway (including now)? No 09/05/2023 Education Answer Date [...] Visit [facility] [address] [address] Grayson Espitia MD [address] [address] (Fax) 11/05/2025 1:05 PM EDT Office Visit [facility] [address] [place] [address] Lula Gasca MD [address] [place] [address] documented as of this encounter Visit Diagnoses Not on filedocumented in this encounter Additional Health Concerns Assessment Noted Time PHQ-9 Depression Total Score: 2 07/11/19 24 2:00 PM EST documented as of this encounter Care Teams Driver Supervisor Relationship Specialty Start Date End Date Grayson Espitia MD [address] [address] (Fax) PCP - General Family Medicine 10/12/22 Grayson Espitia MD 112 [facility] [address] [place] [address] PCP - Medical [place] 05/23/2405/22 Walker Monroy MD 1125 [place] [address] Referring Physician Neurology 06/30/23 Farhad Harper MD 1100 [place] [address] Referring Physician Cardiology 06/30/23 Shannen Velazquez, ROGE [address] [place] [address] Registered Nurse Family Medicine 11/09/23 documented as of this encounter
--- OUTSIDE RECORDS SUMMARY | 2025-02-09 10:04 | XMS_ITS | Encounter Summary ---
Author Organization [facility] Address [address] [place] [address] Care Team Providers Care Representative Name Role Phone Grayson Espitia MD Primary Care Provider Walker Monroy MD Unavailable Farhad Harper MD Unavailable [phone] Shannen Velazquez RN Unavailable [phone] Grayson Espitia MD Unavailable [phone] Encounter Details Date Type Department Care Team (Late st Contact Info) Description 10/23/2024 Abstract [facility] [place] [address] Family Medicine 112 [facility] 100 [place] [address] Grayson Espitia MD 112 [facility] 100 [place] [address] Social History Tobacco Use Types Packs/Day Years [...] often do you attend chur ch or advent services? More than 4 times per year 09/05/2023 Do you belong to any clubs o r organizations such as methodist groups, unions, fraternal or athletic groups, or [...] Recorded Patient Health Questionnaire-2 Score 0 08/21/2024 [facility] of Occupat ional Health - Occupational Stress [...] place to sleep or slept in a mcfp (including now)? No 09/05/2023 Education Answer Date [...] Visit [facility] [address] [address] Grayson Espitia MD [address] [address] (Fax) 11/05/2025 1:05 PM EDT Office Visit [facility] [address] [place] [address] Lula Gasca MD [address] [place] [address] documented as of this encounter Visit Diagnoses Not on filedocumented in this encounter Additional Health Concerns Assessment Noted Time PHQ-9 Depression Total Score: 2 07/11/19 24 2:00 PM EST documented as of this encounter Care Teams Representative Relationship Specialty Start Date End Date Grayson Espitia MD [address] [address] (Fax) PCP - General Family Medicine 10/12/22 Grayson Espitia MD 112 [facility] [address] [place] [address] PCP - Medical [place] 05/23/2405/22 Walker Monroy MD [address] [place] [address] Referring Physician Neurology 06/30/23 Farhad Harper MD 1100 [place] [address] Referring Physician Cardiology 06/30/23 Shannen Velazquez, ROGE [address] [facility] 230 [place] [address] Registered Nurse Family Medicine 11/09/23 documented as of this encounter
--- OUTSIDE RECORDS SUMMARY | 2025-02-09 10:04 | XMS_ITS | Encounter Summary ---
Author Organization [facility] Address [address] [place] [address] Care Team Providers Care Engineering Document Control Clerk Name Role Phone Grayson Espitia MD Primary Care Provider [phone] Walker Monroy MD Unavailable Farhad Harper MD Unavailable [phone] Shannen Velazquez RN Unavailable [phone] Grayson Espitia MD Unavailable [phone] Encounter Details Date Type Department Care Team (Late st Contact Info) Description 02/05/2025 Patient Outreach [facility] [address] [place] [address] Shannen Velazquez, RN [address] [facility] [address] [place] [address] Social History Tobacco Use Types Packs/Day Years [...] How often do you attend chur or buddhist services? More than 4 times per year 09/05/2023 Do you belong to any clubs o r organizations such as jehovah's witness groups, unions, fraternal or athletic groups, or [...] Recorded Patient Health Questionnaire-2 Score 0 08/21/2024 [facility] of Occupat ional Health - Occupational [...] place to sleep or slept in a fci (including now)? No 09/05/2023 Education Answer Date [...] Progress Notes * Shannen Velazquez RN - 02/05/2025 10:05 AM EDT Howard cartagena for CM Returned call to Howard, states that pt had itching, he did apply CeraVe lotion yesterday and this seemed to help with the itching. States she does not have any rash, redness or open areas. Discussed using this on a daily basis, can use 4 times a day. If itching does not improve can schedule an appt. Howard is in agreement documented in this encounter Plan of Treatment Upcoming Encounters Date Type Department Care Team (Late st Contact Info) Description 03/05/2025 2:30 PM EDT Office Visit [facility] [address] [facility] 100 [place] [address] Grayson Espitia MD 112 [facility] 100 [place] [address] (Fax) 11/05/2025 1:05 PM EDT Office Visit [facility] [address] [place] [address] Lula Gasca MD [address] [place] [address] documented as of this encounter Visit Diagnoses Diagnosis Stage 3 chronic kidney disease due to type 2 diabetes mellitus (HCC)- Primary Anxiety associated with depression Dysthymic disorder documented in this encounter Additional Health Concerns Assessment Noted Time PHQ-9 Depression Total Score: 2 07/11/19 24 2:00 PM EST documented as of this encounter Care Teams Engineering Document Control Clerk Relationship Specialty Start Date End Date Grayson Espitia MD 112 [facility] 100 [place] [address] PCP - General Family Medicine 10/12/22 Grayson Espitia MD 112 [facility] 100 [place] [address] PCP - Medical [facility] 05/23/2405/22 Walker Monroy MD [address] [place] [address] Referring Physician Neurology 06/30/23 Farhad Harper MD [address] [place] [address] Referring Physician Cardiology 06/30/23 Shannen Velazquez, ROGE [address] [place] [address] Registered Nurse Family Medicine 11/09/23 documented as of this encounter
--- OUTSIDE RECORDS SUMMARY | 2025-02-09 10:04 | XMS_ITS | Encounter Summary ---
Author Organization [facility] Address [address] [place] [address] Care Team Providers Care Adaptive Physical Education Specialist Name Role Phone Grayson Espitia MD Primary Care Provider Walker Monroy MD Unavailable Farhad Harper MD Unavailable [phone] Shannen Velazquez RN Unavailable [phone] Grayson Espitia MD Unavailable [phone] Encounter Details Date Type Department Care Team (Late st Contact Info) Description 07/09/2024 Orders Only [facility] Family Medicine 112 [facility] [address] [place] [address] Grayson Espitia MD 112 [facility] [address] [place] [address] Social History Tobacco Use Types Packs/Day Years [...] How often do you attend chur or yazidi services? More than 4 times per year 09/05/2023 Do you belong to any clubs o r organizations such as gnosticist groups, unions, fraternal or athletic groups, or [...] Recorded Patient Health Questionnaire-2 Score 6 06/07/2023 [facility] Occupat ional [facility] - Occupational Stress Questionnaire Answer Date [...] place to sleep or slept in a care home (including now)? No 09/05/2023 Education Answer [...] 2:30 PM EDT Office Visit [facility] Family Medicine 112 [facility] 100 [place] [address] Grayson Espitia MD 112 [facility] 100 [place] [address] 11/05/2025 1:05 PM EDT Office Visit [facility] [address] [place] [address] Lula Gasca MD [address] [place] [address] documented as of this encounter Procedures Procedure Name Priority Date/Time Associated Diagnosis Comments DIABETIC RETINOPATHY SCREENING - OU - BOTH EYES Routine 07/06/2024 8:35 AM EST documented in this encounter Results * (ABNORMAL) Diabetic Retinopathy Screening - OU - Both Eyes (07/06/2024 8:35 AM EST) Anatomical Region Laterality Modality Head Other Grayson Espitia MD OPHTH PHOTOGRAPHY Final Resu lt documented in this encounter Visit Diagnoses Not on filedocumented in this encounter Additional Health Concerns Assessment Noted Time PHQ-9 Depression Total Score: 2 07/11/19 24 2:00 PM EST documented as of this encounter Care Teams Adaptive Physical Education Specialist Relationship Specialty Start Date End Date Grayson Espitia MD 112 [facility] [address] [place] [address] PCP - General Family Medicine 10/12/22 Grayson Espitia MD [address] [address] PCP - Medical [facility] 05/23/2405/22 Walker Monroy MD [address] [place] [address] Referring Physician Neurology 06/30/23 Farhad Harper MD 1100 [place] [address] Referring Physician Cardiology 06/30/23 Shannen Velazquez, ROGE [address] [facility] [address] [facility] 230 [place] [address] Registered Nurse Family Medicine 11/09/23 documented as of this encounter
--- OUTSIDE RECORDS SUMMARY | 2025-02-09 10:04 | XMS_ITS | Encounter Summary ---
Author Organization [facility] Address [address] [place] [address] Care Team Providers Care Machine Candle Molder Name Role Phone Grayson Espitia MD Primary Care Provider [phone] Walker Monroy MD Unavailable Farhad Harper MD Unavailable [phone] Shannen Velazquez RN Unavailable [phone] Grayson Espitia MD Unavailable [phone] Encounter Details Date Type Department Care Team (Late st Contact Info) Description 02/04/2025 Patient Outreach [facility] [address] [place] [address] Shannen Velazquez, RN [address] [facility] [address] [place] [address] Social History Tobacco Use Types Packs/Day Years [...] How often do you attend chur or confucianism services? More than 4 times per year 09/05/2023 Do you belong to any clubs o r organizations such as yazidism groups, unions, fraternal or athletic groups, or [...] [facility] of Occupat ional Health - Occupational Stress [...] place to sleep or slept in a longterm (including now)? No 09/05/2023 Education Answer Date [...] Progress Notes * Shannen Velazquez RN - 02/04/2025 9:32 AM EDT Howard called CM. Completed monthly monitor. States that since 01/22 started to give pt ALPRAZolam 0.25 mg 1/2 tablet twice a day. States pt has not had any behavior issues/anxiety, no outbursts. States pt is getting up earlier and staying up more than previously. States he has enough medication of the ALPRAZolam 0.25 mg 1/2 tablet twice a day, last dose would be Tuesday am. 02/08. Discussed pt is being weaned off ALPRAZolam, will update PCP how she is doing and return call to him. Discussed CCM services. States he would like to continue services, able to call with questions and concerns. Discussed CP, reviewed and will update. No active mychart. Discussed that pt has PAP for Trulicity. Enrollment is done every year, usually starting in February. Discussed upcoming appt on 03/05 at 2:30 pm, with PCP, need fasting labs completed the week prior to the appt. pt can sign forms and bring proof of income that day to go with PAP. Howard verbalized understanding. No other changes to medications. Taking medications as ordered. Encouraged Howard to call when needs arise. <February 04, 2025, 11:58 - Shannen Velazquez RN> Called Howard, notified that PCP states to try her off the ALPRAZolam. Discussed to call if there are any issues when she is off the medication. Howard verbalizes understanding. * Shannen Velazquez RN - 02/04/2025 9:32 AM EDT Images from the original note were not included. 02/04/2025 Eleanor Mcclain [address] [place] [id number] Problem: Med Adherence Goal: Consistently take medications as prescribed Intervention: Assist patient in obtaining medications Description: PAP for Trulicity Intervention: Educate patient on frequency and refill details of meds , Problem: Blood Pressure Monitoring Goal: Establish Plan for Regular Lab Work Intervention: Track patient LDL and HDL levels , Problem: Patient is Hypertensive Goal: Remain At/Below Target Blood Pressure Intervention: Establish normal blood pressure range for patient per PCP recommendation Intervention: Discuss steps to manage BP with patient , Problem: HbA1C is uncontrolled Goal: Establish Regular Follow-Ups with PCP Intervention: Determine patient's next PCP visit Intervention: Discuss schedule for PCP visits with patient , and Problem: CCM Participation Goal: Pt will utilize phone monitoring to communicate changes and to address any questions/concernsregarding health and/or healthcare Intervention: Encourage pt to communicate any and changes regarding healthcare documented in this encounter Plan of Treatment Upcoming Encounters Date Type Department Care Team (Late st Contact Info) Description 03/05/2025 2:30 PM EDT Office Visit [facility] [address] [facility] [address] [place] [address] Grayson Espitia MD 112 [facility] [address] [place] [address] (Fax) 11/05/2025 1:05 PM EDT Office Visit [facility] [address] [place] [phone] Lula Gasca MD [address] [place] [address] documented as of this encounter Visit Diagnoses Diagnosis Diabetic nephropathy associated with type 2 diabetes mellitus (HCC)- Primary Essential (primary) hypertension Unspecified essential hypertension Anxiety associated with depression Dysthymic disorder documented in this encounter Additional Health Concerns Assessment Noted Time PHQ-9 Depression Total Score: 2 07/11/19 24 2:00 PM EST documented as of this encounter Care Teams Machine Candle Molder Relationship Specialty Start Date End Date Grayson Espitia MD [address] [address] PCP - General Family Medicine 10/12/22 Grayson Espitia MD [address] [address] PCP - Medical [facility] 05/23/2405/22 Walker Monroy MD [address] [place] [address] Referring Physician Neurology 06/30/23 Farhad Harper MD [address] [place] [address] Referring Physician Cardiology 06/30/23 Shannen Velazquez, ROGE [address] [place] [address] Registered Nurse Family Medicine 11/09/23 documented as of this encounter
--- OUTSIDE RECORDS SUMMARY | 2025-02-09 10:04 | XMS_ITS | Encounter Summary ---
Author Organization [facility] Address [address] [place] [address] Care Team Providers Care Ankle Patch Molder Name Role Phone Grayson Espitia MD Primary Care Provider [phone] Walker Monroy MD Unavailable Farhad Harper MD Unavailable [phone] Shannen Velazquez RN Unavailable [phone] Grayson Espitia MD Unavailable [phone] Encounter Details Date Type Department Care Team (Late st Contact Info) Description 09/13/2024 Orders Only [facility] Family Medicine 112 [facility] [address] [place] [id number] Grayson Espitia MD 112 [facility] [address] [place] [address] Social History Tobacco Use Types Packs/Day Years [...] How often do you attend chur or baptism services? More than 4 times per year [...] Recorded Patient Health Questionnaire-2 Score 0 08/21/2024 [facility] of Occupat ional [facility] - Occupational Stress Questionnaire Answer Date Recorded [...] Visit [facility] [address] [address] Grayson Espitia MD [address] [address] (Fax) 11/05/2025 1:05 PM EDT Office Visit [facility] [address] [place] [address] Lula Gasca MD [address] [place] [address] documented as of this encounter Visit Diagnoses Not on filedocumented in this encounter Additional Health Concerns Assessment Noted Time PHQ-9 Depression Total Score: 2 07/11/19 24 2:00 PM EST documented as of this encounter Care Teams Ankle Patch Molder Relationship Specialty Start Date End Date Grayson Espitia MD [address] [address] (Fax) PCP - General Family Medicine 10/12/22 Grayson Espitia MD 112 [facility] [address] [place] [address] PCP - Medical [place] 05/23/2405/22 Walker Monroy MD [address] [place] [address] Referring Physician Neurology 06/30/23 Farhad Harper MD [address] [place] [address] Referring Physician Cardiology 06/30/23 Shannen Velazquez, ROGE [address] [place] [address] Registered Nurse Family Medicine 11/09/23 documented as of this encounter
--- OUTSIDE RECORDS SUMMARY | 2025-02-09 10:04 | XMS_ITS | Encounter Summary ---
Author Organization [facility] Address [address] [place] [address] Care Team Providers Care Se[employer] Advanced Operator Maintainer Name Role Phone Grayson Espitia MD Primary Care Provider Walker Monroy MD Unavailable Farhad Harper MD Unavailable [phone] Shannen Velazquez RN Unavailable [phone] Grayson Espitia MD Unavailable [phone] Encounter Details Date Type Department Care Team (Late st Contact Info) Description 11/21/2024 Abstract [facility] [place] [address] Family Medicine 112 [facility] [address] [place] [phone] Grayson Espitia MD 112 [facility] [address] [place] [address] Social History Tobacco Use Types Packs/Day Years [...] often do you attend chur ch or orthodoxy services? More than 4 times per year [...] Recorded Patient Health Questionnaire-2 Score 0 08/21/2024 [facility] of Occupat ional Health - [...] slept in a custodial (including now)? No 09/05/2023 Education Answer Date [...] Visit [facility] [address] [address] Grayson Espitia MD [address] [address] (Fax) 11/05/2025 1:05 PM EDT Office Visit [facility] [address] [place] [address] Lula Gasca MD [address] [place] [address] documented as of this encounter Visit Diagnoses Not on filedocumented in this encounter Additional Health Concerns Assessment Noted Time PHQ-9 Depression Total Score: 2 07/11/19 24 2:00 PM EST documented as of this encounter Care Teams Se[employer] Advanced Operator Maintainer Relationship Specialty Start Date End Date Grayson Espitia MD [address] [address] (Fax) PCP - General Family Medicine 10/12/22 Grayson Espitia MD 112 [facility] [address] [place] [address] PCP - Medical [place] 05/23/2405/22 Walker Monroy MD [address] [place] [address] Referring Physician Neurology 06/30/23 Farhad Harper MD [address] [place] [address] Referring Physician Cardiology 06/30/23 Shannen Velazquez, ROGE [address] [facility] [address] [place] [address] Registered Nurse Family Medicine 11/09/23 documented as of this encounter
--- OUTSIDE RECORDS SUMMARY | 2025-02-09 10:06 | XMS_ITS | CCD ---
Author Organization [facility] Care Team Providers Care Certified Physician'S Assistant Name Role Phone Grayson Hernandez Primary Care Provider TASIA IRIZARRY Admitting Unavailab le VIGESAA, TASIA HERNANDEZ Attending Unavailab le VIGESAA, TASIA HERNANDEZ Admitting Unavailab le VIGESAA, TASIA HERNANDEZ Attending Unavailab le GRAYSON HERNANDEZ Primary Care Unavailable VIGDEXTER, TASIA HERNANDEZ Admitting Unavailab le MARIONESMIKE, TASIA HERNANDEZ Attending Unavailab le GRAYSON HERNANDEZ Primary Care Unavailable Grayson Hernandez Primary Care Provider [phone] Grayson Hernandez Primary Care Provider [phone] CARO TERESA Referring Unavailable GRAYSON HERNANDEZ [...] Consulting Unavailable Grayson Hernandez Primary Care Provider [phone] Grayson Hernandez Primary Care Provider PROVIDER, UNKNOWN Attending Unavailable PROVIDER, UNKNOWN Admitting Unavailable Grayson Hernandez MD Primary Care Provider [phone] Grayson Hernandez MD Primary Care Provider [phone] Martha Rendon Unavailable JONE, DR ABHI Saldana [...] SAMSA ., ALIYAH Attending Unavailable SAMSA ., AILYAH Admitting Unavailable SHINE ., DR CINTHIA Coy [...] [place] Unavailable Grayson Hernandez MD Unavailable Grayson Hernandez MD Primary Care Provider Grayson Hernandez MD Unavailable [phone] Eliana MORALES, Harmony Unavailable Tasia Irizarry MD Unavailable [phone] Ewa ARAGON-Kirstie Chen Unavailable Grayson Hernandez MD Primary Care Provider ANSHUL IRIZARRY Attending Unavailable ANSHUL IRIZARRY Referring Unavailable GRAYSON HERNANDEZ Primary Care Unavailable MATTY MARTINEZ Admitting Unavailable MATTY MARTINEZ Attending Unavailable GRAYSON HERNANDEZ Primary Care Unavailable Shannen Velazquez RN Unavailable [phone] Grayson Hernandez MD Primary Care Provider Morgan Womack MD Attending Provider [phone] Grayson Hernandez MD Primary Care Provider Morgan Womack MD Attending Provider Shanta, Morgan Admitting Unavailable Shanta, Morgan Attending Unavailable Grayson Hernandez Primary Care Unavailable Shanta, Morgan Admitting Unavailable Shanta, Morgan Attending Unavailable Grayson Hernandez Primary Care Unavailable Grayson Hernandez MD Unavailable Grayson Hernandez MD Primary Care Provider Grayson Hernandez MD Primary Care Provider Dm Agarwal Jr Attending Unavailable Dm Agarwal Jr Referring Unavailable Dm Agarwal Jr, MD Unavailable Unavailable Shannen Velazquez RN Unavailable [phone] GRAYSON HERNANDEZ Attending Unavailable GRAYSON HERNANDEZ Attending Unavailable HEMEGRAYSON AMARAL Attending Unavailable HEMEGRAYSON AMARAL Attending Unavailable ROSHAN MAYFIELD Attending Unavailable GRAYSON HERNANDEZ Referring Unavailable JORGE LUIS GASCA Attending Unavailable GRAYSON HERNANDEZ Attending Unavailable HEMEGRAYSON AMARAL Attending Unavailable HEMECRISTIN, GRAYSON Deluca Attending Unavailable HEMEGRAYSON AMARAL Attending Unavailable HEMEGRAYSON AMARAL Attending Unavailable Grayson Hernandez MD Primary Care Provider KEERTHI PATEL Referring Unavailable GRAYSON HERNANDEZ Primary Care Unavailable ANSHUL IRIZARRY Attending Unavailable ANSHUL IRIZARRY Referring Unavailable GRAYSON HERNANDEZ Primary Care Unavailable Grayson Hernandez MD Unavailable Allergies Allergy Classification Reported Allergen(s) Allergy Type Date of Onset Reaction(s) Facility (20 sources) Latex; Translations: [LATEX] Propensity to adverse reactions to drug 1 Anaphylaxis [facility]: (1 source) Latex Drug allergy (disorder) 6 [facility] (20 sources) Latex Propensity to adverse reactions 9 Anaphylaxis [facility] (1 source) Latex Drug allergy (disorder) 4 [facility] Repository Medications Current Medications Medication Drug Class(es) Dates Sig (Normalized) Sig (Original) acetaminophen 500 mg oral tablet (13 sources) Start: 11-19-2020 take 1 tablet by mouth every six hours as needed for pain Acetaminophen (Acetaminophen Extra Strength) 500 mg Tablet Active 500 MG PO Q6H as needed for Pain November 19, 2020 12:00am Start: 07-03-2019 take 650 mg rectal r [...] Pain. 0 Active 500 ml albumin human, shelter 50 mg/ml injection (1 source) Human Serum Albumin Start: 07-03-2019 25 g, Intravenous, PRN, Other, PAD below goal and Low CI and/or Low BP and /or Low urine output per hemodynamic goals , Starting Tue07/03/19 at 1726 Up to a max of 1000 mL. Notify surgeon for further orders if max volume infused. [id number] 200 actuat albuterol 0.09 mg/actuat metered dose inhaler (1 source) beta2-Adrenergic Agonist Start: 07-17-2022 take 2 puff(s) by inhalation every four hours as needed Albuterol Sulfate HFA 108 (90 Base) MCG/ACT 2 puffs as needed Inhalation every 4 hrs Jun, Active ALPRAZolam 0.25 mg oral tablet (20 sources) Benzodiazepine Start: 12-27-2024 End: 01-26-2025 take 1 tablet by mouth in the morning ALPRAZolam (Xanax) 0.25 MG tablet Indications: Anxiety associated with depression Take 1 tablet (0.25 mg) by mouth in the morning and 1 tablet (0.25 mg) before bedtime. 60 tablet 12/27/2024 01/26/2025 Active Start: 03-08-2024 take 1 tablet by lorenzo th once daily Alprazolam 1 mg tablet extended release 24 hr Active 1 MG PO Daily March 08, 2024 12:00am Start: 11-16-2023 End: 01-26-2025 take 1 tablet [...] 3 TIMES DAILY (route: oral) 01/10/2023 Active take 1 tablet by lorenzo th three times daily alprazolam 1 mg tablet take 1 tablet by oral route 3 times every day 1 MG - Active amiodarone hydrochloride 200 mg oral tablet (6 sources) Antiarrhythmic Start: 07-25-2019 Start: 07-11-2019 End: 07-21-2019 take 200 mg by mouth twice daily 200 mg, Oral, 2 TIMES DAILY, First dose (after last modification) on Tue07/11/19 at 2100 Start: 07-07-2019 End: 07-11-2019 take [...] Oral, 3 TIMES DAILY, First dose on Tu07/03/19 at 0900 apixaban 5 mg oral tablet [...] (20 sources) Atypical Antipsychotic Start: 08-01-2024 End: 03-02-2025 take 0.5 tablet by mouth in the evening ARIPiprazole (Abilify) 2 MG tablet Indications: Persistent disorder of initiating or maintaining sleep , Vascular dementia with behavior disturbance (HCC) Take 0.5 tablets (1 mg) by mouth in the evening 45 tablet 1 09/03/2024 03/02/2025 Active Start: 11-30-2023 End: 10-16-2024 take 1 mg by mouth once daily Aripiprazole 2 mg tablet Active 1 MG PO Daily October 16, 2024 2:19pm aspirin 81 mg delayed release oral tablet (20 sources) Platelet Aggregation Inhibitor, Nonsteroidal Anti-inflammatory Drug Start: 11-24-2022 take 1 tablet by mouth in the morning aspirin 81 MG EC tablet Take 81 mg by mouth in the morning. 11/24/2022 Active Start: 11-19-2020 take 1 tablet by mouth once da wilma Aspirin 81 mg Tablet Active 81 MG PO Daily November 19, 2020 12:00am Start: 07-03-2019 End: 07-15-2019 take 81 mg [...] mg by mouth three times a week m-w-f 0 Active take 1 tablet by mouth [...] tablet (20 sources) HMG-CoA Reductase Inhibitor Start: 07-04-2019 End: 02-16-2025 take 1 tablet by mouth once daily atorvastatin (Lipitor) 40 MG tablet Indications: Mixed hyperlipidemia Take 1 tablet (40 mg) by mouth Daily 90 tablet 1 08/20/2024 02/16/2025 Active bisacodyl 10 mg rectal suppository (2 sources) Stimulant Laxative Start: 07-03-2019 End: 08-23-2019 Blood Glucose Monitoring Suppl (ONE Rooftop Down ULTRA 2) w/Device kit (20 sources) Start: 08-30-2022 Blood Glucose Monitoring Suppl (ONE TOUCH ULTRA 2) w/Device kit 08/30/2022 Active Start: 08-30-2022 Blood Glucose Monitoring [...] 1400 calcium carbonate 500 mg oral tablet (5 sources) take 1 tablet by mouth once daily calcium carbonate (OSCAL) 500 MG TABS tablet Take 1 tablet by mouth daily Active calcium carbonate 1250 mg / cholecalciferol 0.01 mg oral tablet (1 source) Vitamin D Calcium 500 + D 500 mg-10 mcg (400 unit) tablet - Active calcium citrate 1040 mg oral tablet (20 sources) Start: 4 take 1 tablet by mouth once daily Calcium Citrate 250 mg calcium tablet Active 250 MG PO Daily March 08, 2024 12:00am carvedilol 6.25 mg oral tablet (20 sources) alpha-Adrenergic Peyton, beta-Adrenergic Peyton Start: 5 take 1 tablet by mouth twice daily carvedilol (COREG) 6.25 MG tablet Take 1 tablet by mouth twice daily 180 tablet 09/25/2024 Active Start: 04-02-2024 take 1 tablet by lorenzo th twice daily carvedilol (COREG) 12.5 MG tablet Take 1 tablet by mouth twice daily 180 tablet 04/02/2024 Active Start: 11-23-2022 take 0.5 tablet by m outh in the morning, then take 0.5 tablet [...] MG PO Twice daily March 08, 2024 1:29pm Start: 11-19-2020 End: 03-08-2024 take 2 tablets by mouth twice daily Carvedilol 6.25 mg tablet Discontinued 12.5 MG PO Twice daily November 19, 2020 12:00am March 08, 2024 1:34pm Start: 07-14-2019 take 1 tablet by lorenzo [...] of surgery Pre-op (day of surgery) cholecalciferol 0.05 mg oral capsule (20 sources) Vitamin D Start: 10-16-2024 take 1 capsule by mouth once daily Cholecalciferol (Vitamin D3) 50 mcg (2,000 unit) capsule Active 50 MCG PO Daily October 16, 2024 12:00am Start: 03-08-2024 End: 10-16-2024 take 1 tablet by mouth once daily Cholecalciferol (Vitamin D3) (Vitamin D3) 125 mcg (5,000 unit) tablet Discontinued 125 MCG PO Daily March 08, 2024 1:27pm October 16, 2024 2:17pm Start: 11-19-2020 End: 03-08-2024 take 1 tablet by mouth once daily Cholecalciferol (Vitamin D3) (Vitamin D3) 125 mcg (5,000 unit) Tablet Discontinued 250 MCG PO Daily November 19, 2020 12:00am March 08, 2024 1:34pm take 1 capsule by mo uth once daily cholecalciferol (Vitamin D-3) 125 MCG (5000 UT) capsule Indications: Vitamin D Deficiency Take 5,000 Units by mouth Daily Active take 1 tablet by lorenzo th once daily vitamin D (CHOLECALCIFEROL) 50 MCG (2000 UT) TABS tablet Take 1 tablet by mouth daily Active take 1 capsule by mo uth once in the morning cholecalciferol (Vitamin D-3) 125 MCG (5000 UT) capsule Indications: Vitamin D Deficiency Take 5,000 Units by mouth in the morning. Active Vitamin D3 125 m cg (5,000 unit) tablet - Active Cholecalciferol (VITAMIN D) 125 MCG (5000 UT) CAPS Take 5,000 Units by mouth daily 0 Active take 2 tablets by mo uth in the morning cholecalciferol, vitamin D3, 5,000 units tablet Take 2 tablets (10,000 Units total) by mouth in the morning. 0 Active Cholecalciferol (VITAMIN D) 125 MCG (5000 UT) CAPS Take 10,000 Units by mouth daily 0 Active 168 hr cloNIDine 0.92599 mg/ hr transdermal system (3 sources) Central [...] as needed for 15 days May, Active dexamethasone 1 mg/ml / neomycin 3.5 mg/ml / polymyxin b 54006 unt/ml ophthalmic suspension (16 sources) Aminoglycoside Antibacterial, Polymyxin-class Antibacterial, Corticosteroid Start: 09-05-2024 take 1 drop(s) into the eye(s) three times daily neomycin-polymyxin- dexAMETHasone (Maxitrol) 0.1 % ophthalmic suspension Indications: Conjunctivitis 1 drop to affected eye 3 times daily for 7 days. 5 mL 09/05/2024 Active 24 hr dilTIAZem hydrochloride 180 mg extended release oral capsule (20 sources) Calcium Channel Peyton Start: 08-08-2023 End: 02-16-2025 take 1 capsule by mouth once daily dilTIAZem CD (Cardizem CD) 180 MG 24 hr capsule Indications: Primary hypertension Take 1 capsule (180 mg) by mouth Daily 90 capsule 1 08/20/2024 02/16/2025 Active Start: 05-19-2023 End: 08-17-2023 take 1 capsule [...] oral tablet (20 sources) Start: 03-24-2023 End: 03-02-2025 take 2 tablets by mouth at bedtime donepezil (Aricept) 10 MG tablet Indications: Chronic organic brain syndrome Take 2 tablets (20 mg) by mouth at bedtime 180 tablet 1 09/03/2024 03/02/2025 Active take 1 tablet by mouth once michel y donepezil (ARICEPT) 10 MG tablet Take 1 tablet by mouth nightly Active doxycycline monohydrate 100 mg oral capsule (1 source) Tetracycline-class Drug Start: 07-17-2022 take 1 capsule by mouth every twelve hours Doxycycline Monohydrate 100 MG 1 capsule Orally every 12 hrs for 10 days Jun, Active 0.5 ml dulaglutide 1.5 mg/ml auto-injector (20 sources) GLP-1 Receptor Agonist Start: 03-08-2024 Dulaglutide (Trulicity) 0.75 mg/0.5 mL pen injector Active 0.75 MG SUBCUT every week October 16, 2024 12:00am Dulaglutide (RONY LICITY SC) Inject 2.5 mg into the skin once a week Active Dulaglutide (RONY LICITY SC) Inject 2.5 mg into the skin once a week 0 Active DULoxetine 20 mg delayed release oral capsule (20 sources) Serotonin and Norepinephrine Reuptake Inhibitor Start: 10-16-2024 take 1 capsule by mouth once daily Duloxetine 40 mg capsule,delayed release(DR/EC) Active 40 MG PO Daily October 16, 2024 12:00am Start: 07-16-2024 End: 04-07-2025 take 2 capsules by mouth once daily DULoxetine (Cymbalta) [address] capsule Indications: Anxiety associated with depression Take 2 capsules (40 mg) by mouth Daily Do not crush or chew. 60 capsule 2 01/07/2025 04/07/2025 Active Start: 11-19-2020 End: 10-16-2024 take 1 capsule by mouth once daily DULoxetine (CYMBALTA) 60 MG extended release capsule TAKE 1 CAPSULE BY MOUTH ONCE DAILY 08/16/2021 Active DULoxetine HCl A ctive 0.8 ml [...] Take with meals 0 06/15/2023 07/15/2023 Active ferrous sulfate 325 mg oral tablet (2 sources) Iron, Ferrous Sulfate, 325 (65 Fe) MG TABS Take by mouth Active FLUoxetine 4 mg/ml oral solution (19 sources) Serotonin Reuptake Inhibitor Start: 07-20-2019 take 10 mg by mouth once daily 10 mg, Oral, DAILY, First dose on Tue07/20/19 at 1500 Start: 03-18-2019 take 1 capsule by [facility] once daily FLUoxetine (PROZAC) 40 MG capsule Take 40 mg by mouth daily 1 03/18/2019 Active Fluoxetine Activ e furosemide 20 mg oral tablet (20 sources) Loop Diuretic Start: 08-14-2024 End: 01-07-2025 furosemide (Lasix) 20 MG tablet Indications: Primary hypertension , Chronic diastolic congestive heart failure, NYHA class 1 (HCC) , Edema, unspecified type 2 tablets every am (= 40 mg) and 1 tablet (=20 mg) daily before supper 90 tablet 1 01/07/2025 Active Start: 06-18-2024 furosemide (La six) 20 MG tablet Indications: Chronic diastolic congestive heart failure, NYHA class 1 (CMS/[facility]) , Primary hypertension (CMS/HCC) , Edema, unspecified type 2 tablets every am (= 40 mg) and 1 tablet (=20 mg) daily before supper 90 tablet 06/18/2024 Active Start: 11-19-2020 End: 07-01-2024 take 1 tablet by mouth once daily Furosemide 40 mg tablet Active 40 MG PO Daily November 19, 2020 12:00am Start: 07-09-2019 End: 07-11-2019 80 mg, Intravenous, EVERY 12 HOURS, First dose on 07/09/19 at 0800 Start: 07-06-2019 End: 07-08-2019 80 mg, Intravenous, ONCE, Black n 07/08/19 at 1145, For 1 dose Start: 07-06-2019 End: 07-06-2019 Starting 07/06/19 at 1105 , For 1 dose Germania Andres: cabinet override take 1 tablet by lorenzo th once daily furosemide (LASIX) 20 MG tablet Take 20 mg by mouth daily 0 Active glipiZIDE 10 mg oral tablet (20 sources) Sulfonylurea Start: 12-29-2022 End: 02-21-2024 glipiZIDE (Glucotrol) 10 MG tablet Indications: Type 2 diabetes mellitus with both eyes affected by mild nonproliferative retinopathy without macular edema, without long-term current use of insulin ([facility]) Take Glipizide 10mg and Glipizide 5mg together (=15mg total) twice a day, in am and evening before meal 180 tablet 1 12/29/2022 02/21/2024 Discontinued (Therapy completed) Start: 12-29-2022 End: 02-21-2024 glipiZIDE (Glucotrol) 5 MG t ablet Indications: Type 2 diabetes mellitus with both eyes affected by mild nonproliferative retinopathy without macular edema, without long-term current use of insulin (CMS/[facility]) Take Glipizide 5mg and Glipizide 10mg together [...] 2 TIMES DAILY (route: oral) 01/10/2023 Active glipiZIDE Active glucagon (rdna) 1 mg injection (1 source) Antihypoglycemic Agent Start: 07-03-2019 take 1 mL intravenous route every hour 1 mg, Intramuscular, PRN, Low blood sugar, Blood glucose less than 70 mg/dL and patient NOT ALERT or NPO and does not have IV access., Starting 07/03/19 at 1726 After administration, attempt intravenous access [...] bromide 0.042 mg/actuat metered dose nasal spray (20 sources) Anticholinergic Start: 12-20-2023 End: 08-29-2024 ipratropium (Atrovent) 0.06 % nasal spray Indications: Anxiety associated with depression Administer 2 sprays into each nostril in the morning and 2 sprays at noon and 2 sprays in the evening and 2 sprays before bedtime. 15 mL 07/30/2024 Active 4 ml labetalol hydrochloride 5 mg/ml cartridge (1 source) beta-Adrenergic Peyton Start: 07-14-2019 10 mg, Intravenous, EVERY 4 HOURS PRN, High Blood Pressure, SBP > 160 or DBP > 100. Hold for HR less than 60, Starting 07/14/19 at 0744 levothyroxine sodium 0.088 mg oral tablet (20 sources) l-Thyroxine Start: 05-06-2023 End: 04-04-2025 take 1 tablet by mouth once daily levothyroxine (Synthroid, Levoxyl) 88 MCG tablet Indications: Acquired hypothyroidism Take 1 tablet (88 mcg) by mouth Daily 90 tablet 1 10/06/2024 04/04/2025 Active Start: 07-16-2021 Levothyroxine Sodium 88 MCG CAPS 88 mcg 07/16/2021 Active Start: 07-16-2021 levothyroxine (SYNTHROID) 100 MCG tablet 1 tablet 07/16/2021 Active Start: 11-19-2020 End: 03-08-2024 take 1 tablet by mouth once daily Levothyroxine 125 mcg Tablet Discontinued 125 MCG PO Daily November 19, 2020 12:00am March 08, 2024 1:26pm take 1 capsule by mo [facility] once daily levothyroxine 88 mcg capsule take 1 capsule by oral route every day 88 MCG - Active loratadine 10 mg oral tablet (7 sources) Start: 03-08-2024 take 1 tablet by mouth once daily Loratadine (Claritin) 10 mg tablet Active 10 MG PO Daily March 08, 2024 12:00am losartin (2 sources) losartin Active Magnesium (20 sources) take 1 tablet by mouth in the evening magnesium 200 MG tablet Take 200 mg by mouth in the evening Active magnesium 200 mg tablet - Active End: 07-06-2024 magnesium 250 mg tablet - No Longer Active take 1 tablet by lorenzo th in the evening magnesium 200 MG tablet Take 200 mg by mouth in the evening. Active take 1 tablet by mouth once michel y magnesium 200 MG TABS tablet Take 1 [...] Active magnesium oxide 400 mg oral tablet (9 sources) Start: 10-16-2024 Magnesium Oxid e 400 mg magnesium tablet Active 200 MG PO Twice daily October 16, 2024 2:17pm Start: 03-08-2024 End: 10-16-2024 Magnesium Oxide 400 mg magne sium tablet Discontinued 200 MG PO Daily March 08, 2024 1:28pm October 16, 2024 2:21pm Start: 11-19-2020 End: 03-08-2024 Magnesium Oxide 400 mg magne sium Tablet Discontinued 400 MG PO As Directed November 19, 2020 12:00am March 08, 2024 1:34pm take 0.5 tablet by m outh in [...] as needed for Nausea or Vomiting Active take 1 tablet by lorenzo th every twenty-four hours as needed for nausea and vomiting ondansetron ODT (Zofran-ODT) 4 MG disintegrating tablet Take 4 mg by mouth Daily as needed for nausea or vomiting. Active polyethylene glycol 3350 10519 mg powder for oral solution (1 source) Osmotic Laxative Start: 07-04-2019 17 g, Oral, D AILY, First dose on Tue07/04/19 at 0900 First line therapy for constipation Polyethylene Glycols (4 sources) Start: 11-19-2020 POLYETHYLENE G LYCOL EX Polyethylene Glycol Active 1 EACH MISCELLANE Daily November 19, 2020 11:14am 0 11/19/2020 Active Start: 11-19-2020 End: 03-08-2024 Polyethylene Glycol Powder D iscontinued 1 EACH MISCELLANE Daily as needed for Constipation November 19, 2020 12:00am March 08, 2024 1:34pm Start: 11-19-2020 End: 03-08-2024 Polyethylene Glycol Powder [...] at 100 mL/hr, PRN, Potassium Replacement, Starting Dickey 07/22/19 at 0657 K Lab Replacement Action [...] M20 Act junito take 3 tablets by [facility] twice daily in the evening potassium chloride (K-DUR) 10 MEQ CR tablet Take 10 mEq by mouth 2 (two) times a day 3 tabs in am and 3 tabs in pm . 0 Active potassium,chelated 99 mg ora l tablet (5 sources) Potassium 99 MG TABS Take by mouth 0 Active psyllium 400 mg oral capsule (9 sources) Start: 11-19-2020 psyllium 0.52 g capsule Psyllium Husk (Metamucil) 0.52 gram Capsule Active 0.52 GM PO Daily November 19, 2020 11:14am 11/19/2020 Active Start: 11-19-2020 End: 03-08-2024 Psyllium Husk (Metamucil) 0. 52 gram Capsule Discontinued 0.52 GM PO Daily as needed for Constipation November 19, 2020 12:00am March 08, 2024 1:34pm QUEtiapine 25 mg oral tablet (9 sources) Atypical Antipsychotic Start: 06-07-2023 QUEtiap ine (SEROquel) 25 MG tablet Indications: Multi-infarct dementia with delirium (CMS/HCC) 1/2 - 1 tablet at bedtime 30 tablet 0 06/07/2023 Active Start: 07-20-2019 Start: 07-18-2019 End: 07-20-2019 take 25 mg by mouth twice daily 25 mg, Oral, 2 TIMES D AILY, First dose on Tue07/18/19 at 1300 First dose tonight. sennosides, shelter 8.6 mg oral capsule (18 sources) Sennosides [...] Start: 03-05-2017 KENALOG - 10 m g Feb, 20 mg UNABLE TO FIND (10 sources) UNABLE TO FIND I ndications: eothyrox Indications: eothyrox Active UNABLE TO FIND I ndications: ther-biotic complete Indications: ther-biotic complete Active UNABLE TO FIND I ndications: eothyrox Indications: eothyrox 0 Active UNABLE TO FIND I ndications: ther-biotic complete Indications: ther-biotic complete 0 Active Vitamin D3 (1 source) Vitamin D3 Activ e warfarin sodium 2.5 mg oral tablet (6 sources) Vitamin K Antagonist Start: 07-24-2019 2.5 mg, Oral, ONCE Warfarin, e 07/24/19 at 1800, For 1 dose Review INR prior to administration. Cayden zardous med- See facility policy for handling/disposal [...] Intravenous, EVERY 6 HOURS, First dose on 07/17/19 at 1200, Until Discontinued Start: 07-15-2019 End: 07-17-2019 1 g, Intravenous, EVERY 12 H OURS, First dose on 07/15/19 at 1145, Until Discontinued Start: 07-15-2019 End: 07-23-2019 500 Units/hr (5 mL/hr), Intr avenous, at 5 mL/hr, CONTINUOUS, Starting Dickey 07/15/19 at 1130 LOW DOSE HEPARIN PROTOCOL Start [...] Start: 07-04-2019 take 1 tablet by lorenzo once daily at breakfast 1 tablet, Oral, DAILY WITH BREAKFAST, First dose on Tue07/04/19 at 0800 Start when taking po. (1 source) Completed/Discontinued Medications Medication Drug Class(es) Dates Sig (Normalized) Sig (Original) acetaminophen 325 mg / HYDROcodone bitartrate 5 mg oral tablet (3 sources) Opioid Agonist Start: 11-19-2020 End: 03-08-2024 take 1 tablet by mouth twice daily as needed for pain Hydrocodone-Aceta minophen 5-325 mg Tablet Discontinued 1 TAB PO Twice daily as needed for Pain November 19, 2020 12:00am March 08, 2024 1:34pm amLODIPine 10 mg oral tablet (20 sources) Dihydropyridine Calcium Channel Peyton Start: 07-19-2019 End: 07-21-2019 take 5 mg by mouth once daily 5 mg, Oral, DAILY, First dose on Tue07/19/19 at 1130 Start: 03-18-2019 End: 03-08-2024 take 1 tablet by mouth once daily Amlodipine 10 mg tablet Discontinued 10 MG PO Daily November 19, 2020 12:00am March 08, 2024 1:33pm 10 ml calcium chloride 100 mg/ml prefilled syringe (1 source) Start: 07-03-2019 End: 07-03-2019 Starting Tue07/03/19 at 1825, For 1 dose SERA GARCÍA: cabinet override calcium chloride 0.0014 meq/ml / potassium chloride 0.004 meq/ml / sodium chloride 0.103 meq/ml / sodium lactate 0.028 meq/ml injectable solution (1 source) Start: 07-03-2019 End: 07-16-2019 Intravenous, at 125 mL/hr, CONTINUOUS, Starting 07/03/19 at 0700 chlorothiazide 500 mg injection (3 [...] mL/hr), Intravenous, at 4 mL/hr, CONTINUOUS, Starting 07/10/19 at 0815 Titrate to SBP 130-140 Dose [...] 25 MG PO Daily at bedtime November 19, 2020 12:00am March 08, 2024 1:33pm Start: 07-04-2019 End: 07-15-2019 take 25 mg [...] tablet Discontinued 20 MG PO Daily November 19, 2020 12:00am March 08, 2024 1:33pm Start: 07-05-2019 End: 07-05-2019 take 20 mg by mouth twice daily 20 mg, Oral, 2 TIMES D AILY, First dose on Jesica 07/05/19 at 0900 Start: 07-03-2019 20 mg, Intrave nous, 2 TIMES DAILY, First dose on Tue07/03/19 at 2100, For 3 doses Dilute with 5-10 mL 0.9% sodium chloride. Administer over 2 minutes. gabapentin 600 mg oral tablet (9 sources) Anti-epileptic Agent Start: 11-19-2020 End: 03-08-2024 take 1 tablet by mouth twice daily Gabapentin 600 mg tablet Discontinued 600 MG PO Twice daily November 19, 2020 12:00am March 08, 2024 1:33pm take 1 capsule by [facility] every twenty-four hours Gabapentin 300 MG 1 [...] Combination No.4 (Probiotic) 3 billion cell Capsule (3 sources) Start: 11-19-2020 End: 03-08-2024 take 3 capsules by mouth once daily Lactobacillus Combination No.4 (Probiotic) 3 billion cell Capsule Discontinued 3000 MMU CELLS PO Daily November 19, 2020 12:00am March 08, 2024 1:34pm Start: 11-19-2020 End: 03-08-2024 take 3 capsules by mouth once daily Lactobacillus Combination No.4 (Probiotic) 3 billion cell Capsule Discontinued 3000 MMU CELLS PO Daily November 18, 2020 11:00pm March 08, 2024 12:34pm 100 ml levETIRAcetam 5 mg/ml injection (2 sources) Start: 07-08-2019 End: 07-16-2019 500 mg, Intravenous, EVERY 1 2 HOURS, First dose on 07/08/19 at 0800, [...] 1330 losartan potassium 25 mg oral tablet (20 sources) Angiotensin 2 Receptor Peyton Start: 11-19-2020 End: 03-08-2024 take 2 tablets by mouth once daily Losartan 25 mg tablet Discontinued 50 MG PO Daily November 19, 2020 12:00am March 08, 2024 1:34pm Start: 03-18-2019 take 1 tablet by lorenzo th once daily losartan (COZAAR) 25 MG tablet Take 25 mg by mouth daily 1 03/18/2019 Active Start: 03-18-2019 Start: 03-18-2019 take [...] 1109 , For 1 dose Germania Andres: luis override Start: 07-03-2019 End: 07-03-2019 take 12.5 mg by mouth once daily 12.5 mg, Oral, ONCE, Tue07/03/19 at 1015, For 1 dose, Pre-op (day [...] occur. potassium gluconate 2.5 meq oral tablet (3 sources) Start: 11-19-2020 End: 03-08-2024 take 2 tablets by mouth once daily in the morning, then take 1 tablet by mouth in the evening Potassium Gluconate 595 mg (99 mg) tablet Discontinued 595 MG PO Daily November 19, 2020 12:00am March 08, 2024 1:34pm 2 tab in am and 1 tab in pm 100 ml propofol 10 mg/ml injection (3 sources) General Anesthetic Start: 07-11-2019 End: 07-15-2019 10 mcg/kg/min 82.8 kg (4.968 mL/hr, rounded to 5 mL/hr), Intravenous, at 5 mL/hr, TITRATED, Starting Tue07/11/19 at 0945 For sedation, titrate to RASS [...] Tue07/03/19 at 2146 , For 1 dose Jo Alondra: cabinet override Do not administer through the same [...] 0.4 mg Sennosides (Senna) 8.6 mg Tablet (3 sources) Start: 11-19-2020 End: 03-08-2024 take 1 tablet by mouth once daily Sennosides (Senna) 8.6 mg Tablet Discontinued 8.6 MG PO Daily November 19, 2020 12:00am March 08, 2024 1:34pm Start: 11-19-2020 End: 03-08-2024 take 1 tablet by mouth once daily Sennosides (Senna) 8.6 mg Tablet Discontinued 8.6 MG PO Daily November 18, 2020 11:00pm March 08, 2024 12:34pm 10 ml sodium bicarbonate 84 mg/ml injection (5 sources) Start: 07-07-2019 End: 07-07-2019 50 mEq, Intravenous, ONCE, S at 07/07/19 at 0945, For 1 dose Start: 07-06-2019 End: 07-07-2019 25 mEq, Intravenous, ONCE, S at 07/07/19 at 0315, For 1 dose Start: 07-06-2019 End: 07-06-2019 Starting 07/06/19 at 1002 , For 1 dose Rama Booth: homart override Start: 07-03-2019 End: 07-04-2019 50 mEq, [...] BP is less than 90 mmHG, notify Edge Glue Machine Tender, place patient in Trendelenberg, and give 0.9% NaCl bolus, Starting Tue06/06/19 at 1227, For 1 dose Start: 06-06-2019 End: 06-06-2019 sodium chloride 0.9% (NS) spironolactone 25 mg oral tablet (20 sources) Aldosterone Antagonist Start: 11-19-2020 End: 03-08-2024 take 1 tablet by mouth once daily Spironolactone 25 mg tablet Discontinued 25 MG PO Daily November 19, 2020 12:00am March 08, 2024 1:34pm Start: 07-14-2019 take 50 mg by mouth [...] mg, Oral, DAILY, Fir st dose on Jesica 07/12/19 at 1200 succinylcholine chloride 20 mg/ml injectable solution (1 source) Depolarizing Neuromuscular Peyton Start: 07-11-2019 End: 07-11-2019 Intravenous, DAILY PRN, Starting 07/11/19 at 0503 Suprep Bowel Prep Kit 17.5-3.13-1.6 [...] 25 MG PO Daily at bedtime November 19, 2020 12:00am March 08, 2024 1:34pm Start: 04-30-2019 End: 07-24-2019 take 0.5 tablet by m outh once daily traZODone (DESYREL) 150 mg tablet Take 150 mg by mouth nightly. Take 1/2 tablet. 0 Active traZODone HCl Ac tive Turmeric Root Extract 500 mg capsule (3 sources) Start: 03-08-2024 End: 03-08-2024 take 1 capsule by mouth twice daily Turmeric Root Extract 500 mg capsule Discontinued 500 MG PO Twice daily March 08, 2024 12:00am March 08, 2024 1:46pm Start: 03-08-2024 End: 03-08-2024 take 1 capsule [...] Tue07/11/19 at 0629 , For 1 dose Veroniac Valente: cabinet override (2 sources) Start: 07-07-2019 End: 07-15-2019 25 mcg/hr (1.25 mL/hr, round ed to 1.3 mL/hr), Intravenous, at 1.3 mL/hr, CONTINUOUS, Starting Tue07/07/19 at 1130 Titrate to RASS +1 to [...] mL/hr), Intravenous, at 1.3 mL/hr, CONTINUOUS, Starting Tue07/06/19 at 0730 (1 source) Start: 07-16-2019 End: 07-16-2019 take 15 mL intravenous route once as needed 15 mL, Intravenous, IMG ONCE PRN, Other, Starting Tue07/16/19 at 1752, For 1 dose (1 source) End: 07-24-2019 (1 source) Start: 07-12-2019 End: 07-14-2019 10 mg, Intravenous, EVERY 6 HOURS PRN, High Blood Pressure, Starting Jesica 07/12/19 at 1659 SBP > 160 STAT [...] unspecified] Onset: 3 07-10-2019 Chronic Cardiac dysrhythmias (1 source) Palpitations; Translations: [Palpitations] Episodic Cataract (20 sources) Bilateral age-related nuclear [...] artery disease; Translations: [Atherosclerotic heart disease of [place] coronary artery without angina pectoris] Onset: 0 [...] Translations: [Essential (primary) hypertension] Onset: 5 Chronic Heart valve disorders (20 sources) History of [...] exposure to other viral communicable diseases Episodic Inflammation; infection of eye (except that caused by tuberculosis or sexually transmitteddisease) (4 sources) Acute infectious conjunctivitis; Translations: [Unspecified acute conjunctivitis, bilateral] 09-05-2024 Episodic Late effects of cerebrovascular disease (20 [...] left carotid artery] Onset: 3 10-25-2022 Chronic Open wounds of head; neck; and trunk (2 sources) Scalp laceration; Translations: [Laceration without foreign body of scalp, subsequent encounter] 09-03-2024 Episodic Osteoarthritis (20 sources) Osteoarthritis of left knee joint; Translations: [Unilateral primary osteoarthritis, left knee] Onset: 3 10-25-2022 Chronic Other aftercare (1 source) FPC (current) use of anticoagulants; Translations: [GROUP HOME CURRNT USE ANTICOAGULANTS] Onset: 3 Episodic Other aftercare (1 source) 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 (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; Translations: [OTH PLASTIC SHEETS SUPERVISOR CURRENT DRUG THERAPY] Onset: 3 Episodic Other aftercare (2 sources) Patient encounter status; Translations: [Encounter for follow-up examination after completed treatment for conditions other than malignant neoplasm] 09-03-2024 Episodic Other aftercare (2 sources) Surgical follow-up; Translations: [Encounter for removal of sutures] 09-03-2024 Episodic Other and ill-defined cerebrovascular disease (1 [...] 3 10-25-2022 Chronic Other connective tissue disease (7 sources) Recurrent falls ; Translations: [Repeated falls] 04-30-2024 Episodic Other diseases of kidney and ureters (20 sources) Secondary hyperparathyroidism; Translations: [Secondary hyperparathyroidism of renal origin] Onset: 4 03-08-2024 Chronic Other diseases of kidney and ureters (4 sources) Secondary hyperparathyroidism of renal origin; Translations: [...] nervous system] Onset: 3 10-25-2022 Chronic Other inflammatory condition of skin (2 sources) Seborrheic dermatitis; Translations: [Other seborrheic dermatitis] 11-05-2024 Episodic Other lower respiratory disease (3 sources) Dyspnea; Translations: [Shortness of breath] 09-27-2023 Episodic Other nervous system disorders (20 sources) Disorder of brain; Translations: [Encephalopathy, unspecified] [...] Translations: [Hypomagnesemia] Onset: 9 10-25-2022 Chronic Other nutritional; endocrine; and metabolic disorders (1 source) Hypermagnesemia; Translations: [Hypermagnesemia] 11-15-2024 Chronic Other nutritional; endocrine; and metabolic disorders (1 source) Hypermagnesemia; Translations: [Hypermagnesemia] Onset: 5 Chronic Other skin disorders (2 sources) Lentiginosis; Translations: [Other melanin hyperpigmentation] 11-05-2024 Episodic Other skin disorders (2 sources) Seborrheic keratosis; Translations: [Other seborrheic keratosis] 11-05-2024 Episodic Other upper respiratory disease (1 source) Other [...] Onset: 3 10-25-2022 Chronic Residual codes; unclassified (20 sources) Restlessness and agitation; Translations: [Restlessness and agitation] Onset: 4 02-21-2024 Chronic Residual codes; unclassified (2 sources) Disorientated; Translations: [Disorientation, unspecified] 04-30-2024 Episodic Residual codes; unclassified (4 sources) Edema; Translations: [Edema, unspecified] 08-20-2024 Episodic Residual codes; unclassified (2 sources) Body mass index 20-24 - normal; Translations: [Body mass index (BMI) 23.0-23.9, adult] 09-19-2024 Episodic Retinal detachments; defects; vascular occlusion; and retinopathy (20 sources) Nonexudative age-related macular degeneration; Translations: [Nonexudative age-related macular degeneration, bilateral, early dry stage] Onset: 8 10-25-2022 Chronic Skull and face fractures (2 sources) Closed fracture of nasal bones; Translations: [Fracture of nasal bones, subsequent encounter for fracture with routine healing] 09-03-2024 Episodic Substance-related disorders (3 sources) Continuous opioid dependence; Translations: [Opioid use, unspecified, uncomplicated] Onset: 2 Resolved: 2 Episodic Thyroid disorders (20 sources) Hypothyroidism, unspecified; Translations: [Acquired hypothyroidism] Onset: 0 10-25-2022 Chronic Unclassified (2 sources) Patient encounter status Unclassified (4 sources) Drug therapy finding; Translations: [Anticoagulated] 07-10-2019 Unclassified (2 sources) Chronic atrial fibrillation, unspecified; Translations: [CHRONIC [...] 0 Resolved: 3 12-01-2022 Episodic Epilepsy; convulsions (10 sources) Seizure; Translations: [Unspecified convulsions] Onset: 0 07-07-2019 Episodic Fluid and electrolyte disorders (20 sources) Hyperkalemia; Translations: [Hypokalemia] Onset: 5 Episodic Genitourinary symptoms and ill-defined conditions (20 sources) Microalbuminuria; Translations: [Proteinuria, unspecified] Onset: 5 10-25-2022 Episodic Heart valve disorders (20 sources) Systolic murmur; Translations: [Cardiac murmur, unspecified] Onset: 6 Episodic Malaise and fatigue (20 sources) Weakness; Translations: [Asthenia] Onset: 3 Episodic Mood disorders (20 sources) Mood disorders Onset: 4 Resolved: 4 06-07-2023 Other aftercare (20 sources) Drug therapy finding; Translations: [FPC (current) use of anticoagulants] Onset: 0 07-10-2019 Episodic Other aftercare (1 source) long term care administrator (current) use of aspirin; Translations: [GROUP HOME CURRENT USE OF ASPIRIN] Onset: 2 Episodic Other aftercare (1 source) long term care administrator (current) use of 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/antipla telets; Translations: [PLASTIC SHEETS SUPERVISOR ANTITHROMBOT/ANTIPLATLE TS] Onset: 2 Episodic Other aftercare (20 sources) Polypharmacy ; Translations: [Other chcf (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] Onset: 0 10-25-2022 Episodic Other bone disease and musculoskeletal deformities [...] pain M54.59 Onset: 2 Resolved: 2 Unclassified (5 sources) Onset: 0 02-25-2020 Unclassified (1 source) [...] Unclassified (1 source) blurry vision (chief complaint) 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 Original Ordering Provider[facility] 11-15-2024 Magnesium [Mass/Vol] 2.2 mg/dL 1.6 - 2 .6 mg/dL [facility] Magnesium [Mass/Vol] 2.2 mg/dL Normal 1.6-2.6 [facility] Comment on above: Performed By: #### M G #### [facility] [address] [place] [address] Job Coach/Job Developer: Abhi Simon MD Cardiac echo study Procedure Ordered By: Christian Lilly on 11-07-2024 Ao Root Index 1.72 cm/m2 [facility] Work Phone: [phone] Aortic Root 2.8 cm [facility] Work Phone: [phone] Ascending Aorta 2.8 cm [facility] [employer] Work Phone: [phone] Ascending Aorta Index 1.72 cm/m2 [facility] Work Phone: [phone] AV Area by Peak Velocity 1.1 cm2 [facility] Work Phone: [phone] AV Area by VTI 1.3 cm2 [place] [facility] [employer] Work Phone: [phone] AV Mean Gradient 10 mmHg [facility] [employer] Work Phone: [phone] AV Mean Velocity 1.4 m/s [facility] [employer] Work Phone: [phone] AV Peak Gradient 19 mmHg [facility] [employer] Work Phone: [phone] AV Peak Velocity 2.2 m/s [facility] [employer] Work Phone: [phone] AV Velocity Ratio 0.45 Jose [facility] [employer] Work Phone: [phone] AV VTI 56 cm [facility] [employer] Work Phone: [phone] CONNOR/BSA Peak Velocity 0.7 cm2/m2 [facility] [employer] [employer] Work Phone: [phone] CONNOR/BSA VTI 0.8 cm2/m2 [facility] [employer] [employer] Work Phone: [phone] Body surface area Derived from formula 1.65 m2 [facility] [employer] Work Phone: [phone] E/E' Lateral 22.82 Jose [facility] [employer] Work Phone: [phone] E/E' Ratio (Averaged) 45.09 [facility] [employer] Work Phone: E/E' Septal 67.37 Jose [employer] [employer] Work Phone: [phone] EF BP 56 % 55 - 100 % [facility] [employer] Work Phone: EF Physician 57 % [facility] Phone: Est. RA Pressure 3 mmHg Bon You[facility]olioselene [employer] Work Phone: Fractional Shortening 2D 46 % 28 - 44 % [facility] Phone: Interpretation and review of laboratory results Abnormal [employer] Phone: IVSd 0.9 cm 0.6 - 0.9 cm [employer] Phone: LA Diameter 3.8 cm [employer] Phone: LA Size Index 2.33 cm/m2 [employer] Phone: LA Volume A-L A4C 72 mL Abnormal 22 - 52 mL [facility] [employer] Phone: LA Volume A-L A4C 102 mL Abnormal 22 - 52 mL [employer] Phone: LA Volume A/L 89 mL [employer] Phone: LA Volume BP 85 mL Abnormal 22 - 52 mL [employer] Phone: LA Volume Index A-L A2C 44 mL/m2 Abnormal 16 - 34 mL/m2 [employer] Phone: LA Volume Index A-L A4C 63 mL/m2 Abnormal 16 - 34 mL/m2 [employer] Phone: LA Volume Index A/L 55 mL/m2 16 - 34 mL/m2 [facility] Phone: LA Volume Index BP 52 ml/m2 Abnormal 16 - 34 ml/m2 [employer] Phone: LA Volume Index MOD A2C 44 ml/m2 Abnormal 16 - 34 ml/m2 [employer] Phone: LA Volume Index MOD A4C 58 ml/m2 Abnormal 16 - 34 ml/m2 [facility] [employer] Work Phone: LA Volume MOD A2C 71 mL Abnormal 22 - 52 mL [facility] [employer] Work Phone: LA Volume MOD A4C 95 mL Abnormal 22 - 52 mL Bon [facility] [employer] Work Phone: LA/AO Root Ratio 1.36 [facility] [employer] Work Phone: LV E' Lateral Velocity 5.61 cm/s Basil coco [employer] Work Phone: LV E' Septal Velocity 1.9 cm/s [facility] [employer] Work Phone: LV EDV A2C 108 mL [facility] [employer] Work Phone: LV EDV A4C 84 mL [facility] [employer] Work Phone: LV EDV BP 97 mL 56 - 104 mL [facility] [employer] Work Phone: LV EDV Index A2C 66 mL/m2 [facility] [employer] Work Phone: LV EDV Index A4C 52 mL/m2 [facility] natalie [employer] Work Phone: LV EDV Index BP 60 mL/m2 [facility] monie [employer] Work Phone: LV Ejection Fraction A2C 57 % [facility] [employer] Work Phone: LV Ejection Fraction A4C 58 % [facility] [employer] Work Phone: LV ESV A2C 47 mL [facility] [employer] Work Phone: LV ESV A4C 35 mL [facility] [employer] Work Phone: LV ESV BP 42 mL 19 - 49 mL [employer] Work Phone: LV ESV Index A2C 29 mL/m2 [facility] [employer] Work Phone: LV ESV Index A4C 21 mL/m2 [facility] [employer] Work Phone: LV ESV Index BP 26 mL/m2 [facility] [employer] Work Phone: LV Mass 2D 123 g 67 - 162 g [facility] Work Phone: LV Mass 2D Index 75.4 g/m2 43 - 95 g/m2 [facility] [employer] Work Phone: LV RWT Ratio 0.49 [facility] [employer] Work Phone: LVIDd 4.1 cm 3.9 - 5.3 cm [facility] [employer] Work Phone: LVIDd Index 2.52 cm/m2 [facility] [employer] Work Phone: LVIDs 2.2 cm [facility] [employer] Work Phone: LVIDs Index 1.35 cm/m2 [facility] [employer] Work Phone: LVOT Area 2.5 cm2 [facility] [employer] Work Phone: LVOT Diameter 1.8 cm [facility] [employer] Work Phone: LVOT Mean Gradient 3 mmHg [facility] [employer] Work Phone: LVOT Peak Gradient 4 mmHg [facility] [employer] Work Phone: LVOT Peak Velocity 1 m/s [facility] [employer] Work Phone: LVOT Stroke Volume Index 47.1 mL/m2 [facility] [employer] Work Phone: LVOT SV 76.8 ml [facility] [employer] Work Phone: LVOT VTI 30.2 cm [facility] [employer] Work Phone: LVOT:AV VTI Index 0.54 Jose You[employer]olio sandeep [employer] Work Phone: [phone] LVPWd 1 cm Abnormal 0.6 - 0.9 cm [facility] [employer] Work Phone: [phone] MV A Velocity 1.21 m/s Jose Loya [employer] Phone: [phone] MV Area by PHT 2.3 cm2 Jose chen [employer] Work Phone: [phone] MV Area by VTI 1.2 cm2 [place] [facility] [employer] Work Phone: [phone] MV E Velocity 1.28 m/s [facility] Phone: [phone] MV E Wave Deceleration Time 337.6 ms [facility] Phone: [phone] MV E/A 1.06 [facility] [employer] Work Phone: MV Max Velocity 1.7 m/s Jose Munoz [employer] Work Phone: MV Mean Gradient 4 mmHg Jose [employer]ioo [employer] Work Phone: [phone] MV Mean Velocity 0.8 m/s Jose estrada [employer] Work Phone: MV Peak Gradient 11 mmHg Jose YouFolioselene estrada [employer] Work Phone: [phone] MV PHT 95 ms Jose Loya [employer] Work Phone: [phone] MV VTI 63.6 cm Jose [employer] Work Phone: [phone] MV:LVOT VTI Index 2.11 Jose [employer] sandeep [employer] Work Phone: [phone] PV Max Velocity 0.9 m/s Jose Secyaima [employer] Work Phone: PV Peak Gradient 3 mmHg Jose YouFolioo natalie [employer] Work Phone: RA Volume 29 ml Jose [employer] Work Phone: RA Volume Index A4C 18 mL/m2 [facility] [employer] Work Phone: RV Basal Dimension 3.5 cm [facility] [employer] Work Phone: RV Longitudinal Dimension 6.8 cm [facility] Work Phone: RV Mid Dimension 2.5 cm [facility] [employer] Work Phone: RVSP 33 mmHg [facility] Work Phone: TAPSE 1.5 cm Abnormal 1.7 cm [facility] Work Phone: TR Max Velocity 2.75 m/s [facility] [employer] Work Phone: TR Peak Gradient 30 mmHg [facility] [employer] Work Phone: [facility] [employer] [employer] Phone: Cardiac echo study Procedure on 11-07-2024 Left Ventricle: Normal left ventricular systolic function. EF by visual approximation is 57%. EF by 2D Simpsons Biplane is 56%. Left ventricle size is normal. Mild posterior thickening. No regional wall motion abnormalities identified. Decreased sensitivity due to poor endocardial definition. Grade II diastolic dysfunction with increased LAP. Right Ventricle: Right ventricle size is normal. RV mid diameter is 2.5 cm. Mildly reduced systolic function. TAPSE is abnormal. Aortic Valve: Intuity [id number] mechanical valve that is well-seated with a size of 21 mm. AV mean gradient is 10 mmHg. Mitral Valve: There is severe anterior and posterior annular calcification noted. Mildly calcified, at the posterior leaflet. Mild stenosis noted. Left Atrium: Left atrium is severely dilated. Left atrial volume index is severely increased (>48 mL/m2) mL/m2. Image quality is good. Normal left ventricular systolic function with EF 57% and grade 2 diastolic dysfunction Severe left atrial enlargement Normal functioning 21 mm Bassett Intuity bioprosthetic valve (2019) with mean gradient of 10 mmHg (expected for valve 10.7 +/- 3.3) Mild MS (mean 4 mmHg) without change Left Ventricle Normal left ventricular systolic function. EF by visual approximation is 57%. EF by 2D Simpsons Biplane is 56%. Left ventricle size is normal. Mild posterior thickening. Septal motion is consistent with post-operative status. No regional wall motion abnormalities identified. Decreased sensitivity due to poor endocardial definition. Grade II diastolic dysfunction with increased LAP. Right Ventricle Right ventricle size is normal. RV mid diameter is 2.5 cm. Mildly reduced systolic function. TAPSE is abnormal. Left Atrium Left atrium is severely dilated. Left atrial volume index is severely increased (>48 mL/m2) mL/m2. Right Atrium Right atrium size is normal. IVC/SVC IVC diameter is normal or and decreases greater than 50% during inspiration; therefore the estimated right atrial pressure is normal (~3 mmHg). Mitral Valve There is severe anterior and posterior annular calcification noted. Mildly calcified, at the posterior leaflet. Trace regurgitation. Mild stenosis noted. Tricuspid Valve Valve structure is normal. Physiologically normal regurgitation. No stenosis noted. Normal RVSP. Aortic Valve Intuity [id number] mechanical valve that is well-seated with a size of 21 mm. AV mean gradient is 10 mmHg. Trace paravalvular regurgitation. No significant stenosis. Pulmonic Valve The pulmonic valve visualization is suboptimal but appears to be functioning normally. Physiologically normal regurgitation. No stenosis noted. Ascending Aorta Normal sized aortic root and ascending aorta. Calcified atherosclerosis of the ascending aorta. Pericardium No pericardial effusion. Septum No interatrial shunt visualized with color Doppler. Study Details Image quality: good. The underlying ECG rhythm was sinus rhythm. Color flow Doppler was performed and pulse wave and/or continuous wave Doppler was performed. No contrast was given. 11/2022 There is a 21 mm Intuity (2019) bioprosthetic valve. Valve leaflet motion is normal. The prosthetic valve peak gradient is 33.0 mmHg. The prosthetic valve mean gradient is 17.0 mmHg. There is no regurgitation. The gradient recorded across the prosthetic aortic valve is mildly elevated. Mitral Valve The leaflets exhibit moderately reduced excursion. The posterior valve leafltet is heavily calcifired. There is annular calcification. There is mild regurgitation. There is severe stenosis with MVA of 1.2 cm2 by continuity. Mean gradient of 6 mmHG at a heart rate of 68 bpm. [facility] CV CPACS ALL CBC WITH AUTO DIFFon BASOPHILS ABSOLUTE AUTO 0.1 [facility] Basophils/100 WBC (Bld) 0.9 % 0.2 - 2.0 % [facility] Eosinophils/100 WBC (Bld) 3.6 % 0.9 - 7.0 % [facility] Erythrocyte distribution width (RBC) [Ratio] 12 % 11.0 - 15.0 % [facility] Hematocrit (Bld) [Volume fraction] 33.2 % Low 36.0 - 48.0 % [facility] Hemoglobin (Bld) [Mass/Vol] 11.1 g/dL Low 12.0 - 16.0 g/dL [facility] IMMATURE GRANULOCYTES ABS AUTO 0.02 [facility] Immature granulocytes/100 WBC (Bld) 0.2 % 0.0 - 0.5 % [facility] Interpretation and review of laboratory results Abnormal [facility] LYMPHOCYTES ABSOLUTE AUTO 2.5 [facility] Lymphocytes/100 WBC (Bld) 31.6 % 20.5 - 60.0 % [facility] MCH (RBC) [Entitic mass] 29.9 pg 26.7 - 34.0 pg [facility] MCHC (RBC) [Mass/Vol] 33.4 g/dL 29.9 - 35.2 g/dL [facility] MCV (RBC) [Entitic vol] 89.5 fL 81.0 - 99.0 fL [facility] MONOCYTES ABSOLUTE AUTO 0.6 [facility] Monocytes/100 WBC (Bld) 7 % 1.7 - 12.0 % [facility] NEUTROPHILS ABSOLUTE AUTO 4.6 [facility] Neutrophils/100 WBC (Bld) 56.7 % 43.0 - 75.0 % [facility] Platelet mean volume (Bld) [Entitic vol] 8.7 fL Low 9.5 - 13.5 fL [facility] TBH EO # 0.3 [facility] PLT 224 [facility] RBC 3.71 Low [facility] WBC 8.1 [facility] Cardiac echo study Procedure on 11-06-2024 Radiology Study observation (narrative) [facility] ECG 12-LEADon 11-06-[address] [address] Electrocardiograph Report Signed Patient: ELEANOR MCCLAIN MR#: [id number] : 1950 Acct:[id number] Age/Sex: 73 / F ADM Date: 11/06/24 Loc: CARD Attending Dr: ANSHUL IRIZARRY Ordering Physician: ANSHUL IRIZARRY Date of Service: 11/06/24 Procedure(s): ECG 12 lead Accession Number(s): [id number] cc: [facility] Test Date: 2024-11-06 Pat Name: ELEANOR MCCLAIN Department: Room: - 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 Signed By: 11/06/24 1522 11/06/24 1522 DD/ 1320 TD/TT: Air Support Operations Operator: [facility] Radiology, Radiologist, MD - 11/06/2024 [place] [address] Electrocardiograph Report Signed Patient: ELEANOR MCCLAIN MR#: [id number] : 1950 Acct:[id number] Age/Sex: 73 / F ADM Date: 11/06/24 Loc: CARD Attending Dr: ANSHUL IRIZARRY Ordering Physician: ANSHUL IRIZARRY Date of Service: 11/06/24 Procedure(s): ECG 12 lead Accession Number(s): [id number] cc: [facility] Test Date: 2024-11-06 Pat Name: ELEANOR MCCLAIN Department: Room: - Gender: Female 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 Signed By: 11/06/24 1522 11/06/24 1522 DD/ 1320 TD/TT: Air Support Operations Operator: [facility] Radiology Study observation (narrative) [facility] ECG 12-LEADOrdered By: Radio logist Radiology on 11-06-2024 [facility] Work Phone: Erythrocyte distribution wid th Auto (RBC) [Ratio]on 10-08-2024 Erythrocyte distribution width (RBC) [Ratio] Erythrocyte distribution width [Ratio] by Automated count 11.0-15.0 [facility] Estimated glomerular filtrat ion rate (GFR) non- Americanon 10-08-2024 GFR/1.73 sq M.predicted among non-blacks MDRD (S/P/Bld) [Vol rate/Area] Estimated glomerular filtration rate (GFR) non- Low >=60 mL/min/1.73m 2 [facility] CBC WITH PLATELET NO DI FFERENTIALon 10-08-2024 Erythrocyte distribution width (RBC) [Ratio] 12.1 % 11.0 - 15.0 % [facility] Hematocrit (Bld) [Volume fraction] 37.2 % 36.0 - 48.0 % [facility] Hemoglobin (Bld) [Mass/Vol] 12.4 g/dL 12.0 - 16.0 g/dL [facility] Interpretation and review of laboratory results Abnormal [facility] MCH (RBC) [Entitic mass] 29.7 pg 26.7 - 34.0 pg [facility] MCHC (RBC) [Mass/Vol] 33.3 g/dL 29.9 - 35.2 g/dL [facility] MCV (RBC) [Entitic vol] 89 fL 81.0 - 99.0 fL [facility] Platelet mean volume (Bld) [Entitic vol] 8.9 fL Low 9.5 - 13.5 fL [facility] TBH PLT 231 [facility] TB RBC 4.18 Low [facility] TB WBC 7.1 [facility] Hematocrit Auto (Bld) [Volum e fraction]on 10-08-2024 Hematocrit (Bld) [Volume fraction] Hematocrit [Volume Fraction] of Blood by Automated count 36.0-48.0 [facility] Hemoglobin [Mass/volume] in Bloodon 10-08-2024 Hemoglobin (Bld) [Mass/Vol] Hemoglobin [Mass/volume] in Blood 12.0-16.0 [facility] Iron binding capacity [Mass/ volume] in Serum or Plasmaon 10-08-2024 Iron binding capacity [Mass/Vol] Iron binding capacity [Mass/volume] in Serum or Plasma 250.0-450.0 [facility] Iron saturation [Mass Fracti on] in Serum or Plasmaon 10-08-2024 Iron saturation [Mass fraction] Iron saturation [Mass Fraction] in Serum or Plasma [facility] Laboratory - Chemistry and C hemistry - challengeon 10-08-2024 Albumin [Mass/Vol] 3.7 g/dL 3.4-5.0 [facility] Calcium [Mass/Vol] 9.7 mg/dL 8.5-10.1 [facility] Chloride [Moles/Vol] 103 mmol/L 98-[address] [facility] CO2 [Moles/Vol] 29.8 mmol/L 21.0-32.0 [facility] Creatinine [Mass/Vol] 1.92 mg/dL High 0.55-1.02 [facility] Ferritin [Mass/Vol] 84.0 ng/mL 8.0-252.0 [facility] GFR/1.73 sq M.predicted MDRD (S/P/Bld) [Vol rate/Area] 31 mL/min/{1.73_m2} Low >=60 mL/min/1.73m 2 [facility] Glucose [Mass/Vol] 245 mg/dL High 74-106 [facility] Iron [Mass/Vol] 67.0 ug/dL 50.0-170.0 [facility] Magnesium [Mass/Vol] 2.1 mg/dL 1.8-2.[address] [facility] Potassium [Moles/Vol] 4.0 mmol/L 3.5-5.1 [facility] Sodium [Moles/Vol] 141 mmol/L 136-145 [facility] Urate [Mass/Vol] 5.4 mg/dL 2.6-6.0 [facility] Urea nitrogen [Mass/Vol] 27.0 mg/dL High 7.0-18.0 [facility] Urea nitrogen/Creatinine [Mass ratio] 14.1 mg/mg [facility] Laboratory - Urinalysison Protein (U) [Mass/Vol] 29.4 mg/dL High <=11.9 [facility] Leukocytes [#/volume] correc angely for nucleated erythrocytes in Blood by Automated counon 10-08-2024 WBC corrected for nucl RBC Auto (Bld) [#/Vol] Leukocytes [#/volume] corrected for nucleated erythrocytes in Blood by Automated coun 4.0-11.0 [facility] MCH Auto (RBC) [Entitic mass ]on 10-08-2024 MCH (RBC) [Entitic mass] MCH [Entitic mass] by Automated count 26.7-34.0 [facility] MCHC Auto (RBC) [Mass/Vol]on 10-08-2024 MCHC (RBC) [Mass/Vol] MCHC [Mass/volume] by Automated count 29.9-35.2 [facility] MCV Auto (RBC) [Entitic vol] on 10-08-2024 MCV (RBC) [Entitic vol] MCV [Entitic volume] by Automated count 81.0-99.0 [facility] No Panel Informationon 10-08 Urine Random Creatinine 87.74 mg/dL 20.00-300.00 [facility] 25-Hydroxy Vitamin D Total 86.3 ng/mL [facility] Comment on above: <20 ng/mL Vit D defi cient20-<30 ng/mL Vit D -638 ng/mL Vit D sufficient>100 ng/mL Potential Toxicity Parathyroid Hormone (Intact) 56 pg/mL 15-65 [facility] Comment on above: Performed at: [address] [id number] Director: Jerrell Bautista PhD, Phone: [phone] Phosphorus Level 4.3 mg/dL 2.6-4.7 [facility] Platelet mean volume Auto (B ld) [Entitic vol]on 10-08-2024 Platelet mean volume (Bld) [Entitic vol] Platelet mean volume [Entitic volume] in Blood by Automated count Low 9.5-13.5 [facility] Platelets Auto (Bld) [#/Vol] on 10-08-2024 Platelets (Bld) [#/Vol] Platelets [#/volume] in Blood by Automated count 150-450 [facility] RBC Auto (Bld) [#/Vol]on RBC (Bld) [#/Vol] Erythrocytes [#/volume] in Blood by Automated count Low 4.20-5.40 [facility] Serum or plasma anion gap de terminationon 10-08-2024 Anion gap [Moles/Vol] Serum or plasma an ion gap determination [facility] Urine protein/creatinine rat ioon 10-08-2024 Protein/Creatinine (U) [Ratio] Urine protein/creatinine ratio [facility] ALL BASIC METABOLIC PANELon 06-15-2024 Anion gap [Moles/Vol] 8.4 mmol/L [facility] Calcium [Mass/Vol] 9.1 mg/dL 8.5 - 10. 1 mg/dL [facility] Chloride [Moles/Vol] 104 mmol/L 98 - 10 7 mmol/L [facility] CO2 [Moles/Vol] 33.6 mmol/L High 21.0 - 32.0 mmol/L [facility] Creatinine [Mass/Vol] 1.75 mg/dL High 0.55 - 1.02 mg/dL [facility] GFR/1.73 sq M.predicted CKD-EPI (S/P/Bld) [Vol rate/Area] 34 Low >=60 mL/min/1.73m 2 [facility] Glucose [Mass/Vol] 116 mg/dL High 74 - 106 mg/dL [facility] Interpretation and review of laboratory results Abnormal [facility] Potassium [Moles/Vol] 4 mmol/L 3.5 - 5.1 mmol/L [facility] Sodium [Moles/Vol] 142 mmol/L 136 - 145 mmol/L [facility] TBH EGFR-NON AF ZIMBABWEAN 28 Low >=60 mL/min/1.73m 2 [facility] Urea nitrogen [Mass/Vol] 23 mg/dL High 7.0 - 18.0 mg/dL [facility] Urea nitrogen/Creatinine [Mass ratio] 13.1 mg/mg [facility] HEMOGLOBIN A1con 05-25-2024 HEMOGLOBIN A1c 6.4 % [...] By: #### 4 [phone] #### [facility] [address], [address] [place] [address] Mortgage Operations Manager: Stephan Kline MD ALL CBC WITH AUTO DIFFon BASOPHILS ABSOLUTE AUTO 0.1 [facility] Basophils/100 WBC (Bld) 1.3 % 0.2 - 2.0 % [facility] Eosinophils/100 WBC (Bld) 4.6 % 0.9 - 7.0 % [facility] Erythrocyte distribution width (RBC) [Ratio] 11.9 % 11.0 - 15.0 % [facility] Hematocrit (Bld) [Volume fraction] 33.6 % Low 36.0 - 48.0 % [facility] Hemoglobin (Bld) [Mass/Vol] 11.2 g/dL Low 12.0 - 16.0 g/dL [facility] IMMATURE GRANULOCYTES ABS AUTO 0.01 [facility] Immature granulocytes/100 WBC (Bld) 0.1 % 0.0 - 0.5 % [facility] Interpretation and review of laboratory results Abnormal [facility] LYMPHOCYTES ABSOLUTE AUTO 2.2 [facility] Lymphocytes/100 WBC (Bld) 31.2 % 20.5 - 60.0 % [facility] MCH (RBC) [Entitic mass] 30.4 pg 26.7 - 34.0 pg [facility] MCHC (RBC) [Mass/Vol] 33.3 g/dL 29.9 - 35.2 g/dL [facility] MCV (RBC) [Entitic vol] 91.3 fL 81.0 - 99.0 fL [facility] MONOCYTES ABSOLUTE AUTO 0.5 [facility] Monocytes/100 WBC (Bld) 7.6 % 1.7 - 12.0 % [facility] NEUTROPHILS ABSOLUTE AUTO 4 [facility] Neutrophils/100 WBC (Bld) 55.2 % 43.0 - 75.0 % [facility] Platelet mean volume (Bld) [Entitic vol] 8.7 fL Low 9.5 - 13.5 fL [facility] TB[facility] EO # 0.3 [facility]H PLT 240 [facility] TB RBC 3.68 Low [facility] TB WBC 7.2 [facility] Albumin [Mass/volume] in Ser um or Plasma by Bromocresol green (BCG) dye binding methoOrdered By: Morgan Womack on 04-10-2024 Albumin BCG dye [Mass/Vol] Albumin [Mass/volume] in Serum or Plasma by Bromocresol green (BCG) dye binding metho 3.5-5.7 [facility] Appearance of UrineOrdered B y: Morgan Womack on 04-10-2024 Appearance (U) Urine appearance Clear [facility] Bacteria [Presence] in Urine by AutomatedOrdered By: Morgan Womack on 04-10-2024 Bacteria Auto Ql (U) Bacteria [Presence] in Urine by Automated High None Seen [facility] Bilirubin Test strip Ql (U)O rdered By: Morgan Womack on 04-10-2024 Bilirubin Ql (U) Bilirubin.total [Presence] in Urine by Test strip Negative [facility] Calcium [Mass/volume] in Ser um or PlasmaOrdered By: Morgan Womack on 04-10-2024 Calcium [Mass/Vol] Calcium [Mass/volume ] in Serum or Plasma 8.6-10.3 [facility] Carbon dioxide, total [Moles /volume] in Serum or PlasmaOrdered By: Morgan Womack on 04-10-2024 CO2 [Moles/Vol] Carbon dioxide, tota l [Moles/volume] in Serum or Plasma 21.0-31.0 [facility] Chloride [Moles/volume] in S chuck or PlasmaOrdered By: Morgan Womack on 04-10-2024 Chloride [Moles/Vol] Chloride [Moles/volume] in Serum or Plasma 98-107 [facility] Color Auto (U)Ordered By: Ab david Womack on 04-10-2024 Color (U) Color of Urine by Auto Yellow [facility] Creatinine [Mass/volume] in Serum or PlasmaOrdered By: Morgan Shanta on 04-10-2024 Creatinine [Mass/Vol] Creatinine [Mass/volume] in Serum or Plasma High 0.60-1.20 [facility] Creatinine [Mass/volume] in UrineOrdered By: Morgan Shanta on 04-10-2024 Creatinine (U) [Mass/Vol] Creatinine [Mass/volume] in Urine [facility] Comment on above: No reference range e stablished Dipstick and Microscopicon 1 06-10-2023 Appearance (U) Clear Normal Clear [facility] Comment on above: Order Comment: Name Collection Type:: Clean-Voided Midstream Performed By: #### P TH, CLAUDY, RENAL, FE and TIBC, CBCNO, [id number], MG, [id number], URIC #### [address] #### KAPPA, SHORTY SERUM, SPE W INTERPRET #### [facility] , Bacteria,Urine 4+ High None Seen [facility] Comment on above: Order Comment: Name Collection Type:: Clean-Voided Midstream Performed By: #### P TH, CLAUDY, RENAL, FE and TIBC, CBCNO, [id number], MG, [id number], URIC #### [facility] [address] [place] [address] #### KAPPA, SHORTY SERUM, SPE W INTERPRET #### [facility] , Bilirubin,Urine Negative Normal Negative [facility] Comment on above: Order Comment: Name Collection Type:: Clean-Voided Midstream Performed By: #### P TH, CLAUDY, RENAL, FE and TIBC, CBCNO, [id number], MG, [id number], URIC #### [address] #### KAPPA, SHORTY SERUM, SPE W INTERPRET #### [facility] , Color (U) Colorless Normal Yellow [facility] Comment on above: Order Comment: Name Collection Type:: Clean-Voided Midstream Performed By: #### P TH, CLAUDY, RENAL, FE and TIBC, CBCNO, [id number], MG, [id number], URIC #### [address] #### KAPPA, SHORTY SERUM, SPE W INTERPRET #### [facility] , Glucose Ql (U) Normal Normal Normal [facility] Comment on above: Order Comment: Name Collection Type:: Clean-Voided Midstream Performed By: #### P TH, CLAUDY, RENAL, FE and TIBC, CBCNO, [id number], MG, [id number], URIC #### [address] #### KAPPA, SHORTY SERUM, SPE W INTERPRET #### [facility] , Hyaline Casts,Urine 0 [LPF] Normal 0-8 [facility] Comment on above: Order Comment: Name Collection Type:: Clean-Voided Midstream Performed By: #### P TH, CLAUDY, RENAL, FE and TIBC, CBCNO, [id number], MG, [id number], URIC #### [address] #### KAPPA, SHORTY SERUM, SPE W INTERPRET #### [facility] , Ketones Ql (U) Negative Normal Negative [facility] Comment on above: Order Comment: Name Collection Type:: Clean-Voided Midstream Performed By: #### P TH, CLAUDY, RENAL, FE and TIBC, CBCNO, [id number], MG, [id number], URIC #### [address] #### KAPPA, SHORTY SERUM, SPE W INTERPRET #### [facility] , Leukocyte esterase Test strip Ql (U) 3+ High Negative [facility] Comment on above: Order Comment: Name Collection Type:: Clean-Voided Midstream Performed By: #### P TH, CLAUDY, RENAL, FE and TIBC, CBCNO, [id number], MG, [id number], URIC #### [address] #### KAPPA, SHORTY SERUM, SPE W INTERPRET #### [facility] , Mucus,Urine Rare Normal [facility] Comment on above: Order Comment: Name Collection Type:: Clean-Voided Midstream Result Comment: PERF ORMED BY: [place] [address] PATHOLOGIST RUBBER TRIMMER CARON MUNOZ M.D. Performed By: #### P TH, CLAUDY, RENAL, FE and TIBC, CBCNO, [id number], MG, [id number], URIC #### [address] #### KAPPA, SHORTY SERUM, SPE W INTERPRET #### [facility] , Nitrite,Urine Negative Normal Negative [facility] Comment on above: Order Comment: Name Collection Type:: Clean-Voided Midstream Performed By: #### P TH, CLAUDY, RENAL, FE and TIBC, CBCNO, [id number], MG, [id number], URIC #### [address] #### KAPPA, SHORTY SERUM, SPE W INTERPRET #### [facility] , Occult Blood,Urine Negative Normal Negative [facility] Comment on above: Order Comment: Name Collection Type:: Clean-Voided Midstream Performed By: #### P TH, CLAUDY, RENAL, FE and TIBC, CBCNO, [id number], MG, [id number], URIC #### [address] #### KAPPA, SHORTY SERUM, SPE W INTERPRET #### [facility] , pH (U) 6.5 [pH] Normal 5.0-9.0 [facility] Comment on above: Order Comment: Name Collection Type:: Clean-Voided Midstream Performed By: #### P TH, CLAUDY, RENAL, FE and TIBC, CBCNO, [id number], MG, [id number], URIC #### [address] #### KAPPA, SHORTY SERUM, SPE W INTERPRET #### [facility] , Protein,Urine Negative Normal Negative [facility] Comment on above: Order Comment: Name Collection Type:: Clean-Voided Midstream Performed By: #### P TH, CLAUDY, RENAL, FE and TIBC, CBCNO, [id number], MG, [id number], URIC #### [address] #### KAPPA, SHORTY SERUM, SPE W INTERPRET #### [facility] , RBC,Urine 1 [HPF] Normal 0-4 [facility] Comment on above: Order Comment: Name Collection Type:: Clean-Voided Midstream Performed By: #### P TH, CLAUDY, RENAL, FE and TIBC, CBCNO, [id number], MG, [id number], URIC #### [address] #### KAPPA, SHORTY SERUM, SPE W INTERPRET #### [facility] , Specificy [place],Urine 1.005 Normal 1.001-1.030 [facility] Comment on above: Order Comment: Name Collection Type:: Clean-Voided Midstream Performed By: #### P TH, CLAUDY, RENAL, FE and TIBC, CBCNO, [id number], MG, [id number], URIC #### [place] [address] [place] #### KAPPA, SHORTY SERUM, SPE W INTERPRET #### [facility] , Squamous Epithelial Cell,Urine 1 [HPF] Normal 0-2 [facility] Comment on above: Order Comment: Name Collection Type:: Clean-Voided Midstream Performed By: #### P TH, CLAUDY, RENAL, FE and TIBC, CBCNO, [id number], MG, [id number], URIC #### [place] [address] [place] #### KAPPA, SHORTY SERUM, SPE W INTERPRET #### [facility] , Urobilinogen,Urine Normal Normal Normal [facility] Comment on above: Order Comment: Name Collection Type:: Clean-Voided Midstream Performed By: #### P TH, CLAUDY, RENAL, FE and TIBC, CBCNO, [id number], MG, [id number], URIC #### [place] [address] [place] #### KAPPA, SHORTY SERUM, SPE W INTERPRET #### [facility] , WBC,Urine 20 [HPF] High 0-4 [facility] Comment on above: Order Comment: Name Collection Type:: Clean-Voided Midstream Performed By: #### P TH, CLAUDY, RENAL, FE and TIBC, CBCNO, [id number], MG, [id number], URIC #### [place] [address] [place] #### KAPPA, SHORTY SERUM, SPE W INTERPRET #### [facility] , Epithelial cells.squamous [# /area] in Urine sediment by Automated countOrdered By: Morgan Womack on 04-10-2024 Epithelial cells.squamous Auto (Urine sed) [#/Area] Epithelial cells.squamous [#/area] in Urine sediment by Automated count 0-2 [facility] Erythrocyte distribution wid th Auto (RBC) [Ratio]Ordered By: Morgan Womack on 04-10-2024 Erythrocyte distribution width (RBC) [Ratio] Erythrocyte distribution width [Ratio] by Automated count 11.9-15.3 [facility] Erythrocytes [#/area] in Uri ne sediment by Automated countOrdered By: Morgan Womack on 04-10-2024 RBC Auto (Urine sed) [#/Area] Erythrocytes [#/area] in Urine sediment by Automated count 0-4 [facility] Ferritinon 04-10-2024 Ferritin [Mass/Vol] 23.3 ng/mL Normal 11.0-306.8 [facility] Comment on above: Performed By: #### P TH, CLAUDY, RENAL, FE and TIBC, CBCNO, [id number], MG, [id number], URIC #### [facility] [address] [place] [address] [place] #### KAPPA, SHORTY SERUM, SPE W INTERPRET #### [facility] , Ferritin [Mass/volume] in Se rum or PlasmaOrdered By: Morgan Womack on 04-10-2024 Ferritin [Mass/Vol] Ferritin [Mass/volume] in Serum or Plasma 11.0-306.8 [facility] Folate [Mass/volume] in Seru m or PlasmaOrdered By: Morgan Womack on 04-10-2024 Folate [Mass/Vol] Folate [Mass/volume] in Serum or Plasma >5.9 [facility] Comment on above: Folate reference ran ge: >5.9 ng/mlThe WHO technical consultation on folate and vitamin [id number] has determined that folate concentrations lessthan 4 ng/ml are considered deficient. Free K+L LT Chains, Qn, Son 04-10-2024 Free [place] Light Chains, S 40.0 mg/L High 3.3-19.4 [facility] Comment on above: Performed By: #### P TH, CLAUDY, RENAL, FE and TIBC, CBCNO, [id number], MG, [id number], URIC #### [facility] [address] [place] [address] [place] #### KAPPA, SHORTY SERUM, SPE W INTERPRET #### [facility] , Free [place] Light Chains, S 24.4 mg/L Normal 5.7-26.3 [facility] Comment on above: Performed By: #### P TH, CLAUDY, RENAL, FE and TIBC, CBCNO, [id number], MG, [id number], URIC #### [place] [address] [place] #### KAPPA, SHORTY SERUM, SPE W INTERPRET #### [facility] , [place]/Lambda Ratio, S 1.64 Normal 0.26-1.65 [facility] Comment on above: Result Comment: Perf ormed at: CB - [facility] [address] [id number] Job Coach/Job Developer: Jerrell Bautista PhD, Phone: [phone] PERFORMED BY: [place] [address] PATHOLOGIST RUBBER TRIMMER CARON MUNOZ M.D. Performed By: #### P TH, CLAUDY, RENAL, FE and TIBC, CBCNO, [id number], MG, [id number], URIC #### [address] #### KAPPA, SHORTY SERUM, SPE W INTERPRET #### [facility] , Glucose [Mass/volume] in Ser um or PlasmaOrdered By: Morgan Womack on 04-10-2024 Glucose [Mass/Vol] Glucose [Mass/volume ] in Serum or Plasma 70-100 [facility] Comment on above: ADA recommended refe rence rangeRandom Glucose Reference Range is dependent on time and content of last meal. Glucose of more than 200 mg/dL in a nonstressed, ambulatory subject supports the diagnosis of Diabetes Mellitus. Glucose [Mass/volume] in Uri ne by Test stripOrdered By: Morgan Womack on 04-10-2024 Glucose Test strip (U) [Mass/Vol] Glucose [Mass/volume] in Urine by Test strip Normal [facility] Hematocrit Auto (Bld) [Volum e fraction]Ordered By: Morgan Womack on 04-10-2024 Hematocrit (Bld) [Volume fraction] Hematocrit [Volume Fraction] of Blood by Automated count Low 34.0-46.4 [facility] Hemoglobin Test strip Ql (U) Ordered By: Morgan Womack on 04-10-2024 Hemoglobin Ql (U) Hemoglobin [Presence ] in Urine by Test strip Negative [facility] Hemoglobin [Mass/volume] in BloodOrdered By: Morgan Womack on 04-10-2024 Hemoglobin (Bld) [Mass/Vol] Hemoglobin [Mass/volume] in Blood Low 11.8-15.4 [facility] Hemogram CBC Without Diffon 04-10-2024 Erythrocyte distribution width (RBC) [Ratio] 12.7 % Normal 11.9-15.3 [facility] Comment on above: Performed By: #### P TH, CLAUDY, RENAL, FE and TIBC, CBCNO, [id number], MG, [id number], URIC #### [facility] [address] [place] [address] #### KAPPA, SHORTY SERUM, SPE W INTERPRET #### [facility] , Hematocrit (Bld) [Volume fraction] 31.9 % Low 34.0-46.4 [facility] Comment on above: Performed By: #### P TH, CLAUDY, RENAL, FE and TIBC, CBCNO, [id number], MG, [id number], URIC #### [facility] [address] [place] [address] #### KAPPA, SHORTY SERUM, SPE W INTERPRET #### [facility] , Hemoglobin (Bld) [Mass/Vol] 10.9 g/dL Low 11.8-15.4 [facility] Comment on above: Performed By: #### P TH, CLAUDY, RENAL, FE and TIBC, CBCNO, [id number], MG, [id number], URIC #### [facility] [address] [place] [address] [place] #### KAPPA, SHORTY SERUM, SPE W INTERPRET #### [facility] , MCH (RBC) [Entitic mass] 30.3 pg Normal 24.7-34.3 [facility] Comment on above: Performed By: #### P TH, CLAUDY, RENAL, FE and TIBC, CBCNO, [id number], MG, [id number], URIC #### [address] #### KAPPA, SHORTY SERUM, SPE W INTERPRET #### [facility] , MCV (RBC) [Entitic vol] 88.7 fL Normal 80-100 [facility] Comment on above: Performed By: #### P TH, CLAUDY, RENAL, FE and TIBC, CBCNO, [id number], MG, [id number], URIC #### [address] #### KAPPA, SHORTY SERUM, SPE W INTERPRET #### [facility] , Mean Corpuscular HGB Conc 34.2 g/dL Normal 32.0-35.0 [facility] Comment on above: Performed By: #### P TH, CLAUDY, RENAL, FE and TIBC, CBCNO, [id number], MG, [id number], URIC #### [address] #### KAPPA, SHORTY SERUM, SPE W INTERPRET #### [facility] , Platelet mean volume (Bld) [Entitic vol] 7.6 fL Normal 6.3-10.[address] [facility] Comment on above: Result Comment: PERF ORMED BY: [place] [address] PATHOLOGIST RUBBER TRIMMER CARON MUNOZ M.D. Performed By: #### P TH, CLAUDY, RENAL, FE and TIBC, CBCNO, [id number], MG, [id number], URIC #### [address] #### KAPPA, SHORTY SERUM, SPE W INTERPRET #### [facility] , Platelets (Bld) [#/Vol] 252 10*3/uL Normal 150-450 [facility] Comment on above: Performed By: #### P TH, CLAUDY, RENAL, FE and TIBC, CBCNO, [id number], MG, [id number], URIC #### [facility] [address] [place] [address] [place] #### KAPPA, SHORTY SERUM, SPE W INTERPRET #### [facility] , RBC (Bld) [#/Vol] 3.60 10*6/uL Normal 3.60-5.00 [facility] Comment on above: Performed By: #### P TH, CLAUDY, RENAL, FE and TIBC, CBCNO, [id number], MG, [id number], URIC #### [place] [address] [place] #### KAPPA, SHORTY SERUM, SPE W INTERPRET #### [facility] , WBC (Bld) [#/Vol] 8.0 10*3/uL Normal 3.8-11.6 [facility] Comment on above: Performed By: #### P TH, CLAUDY, RENAL, FE and TIBC, CBCNO, [id number], MG, [id number], URIC #### [place] [address] [place] #### KAPPA, SHORTY SERUM, SPE W INTERPRET #### [facility] , Hyaline casts [#/area] in Ur ine sediment by Automated countOrdered By: Morgan Womack on 04-10-2024 Hyaline casts Auto (Urine sed) [#/Area] Hyaline casts [#/area] in Urine sediment by Automated count 0-8 [facility] Immunofixation, (SHORTY), Urine on 04-10-2024 Immunofixation, (SHORTY), Urine Comment Normal . [facility] Comment on above: Result Comment: No m onoclonality detected. Performed at: - [facility] [address] [id number] Job Coach/Job Developer: Jerrell Bautista PhD, Phone: [phone] PERFORMED BY: [address] [place] [address] PATHOLOGIST RUBBER TRIMMER CARON MUNOZ M.D. Performed By: #### P TH, CLAUDY, RENAL, FE and TIBC, CBCNO, [id number], MG, [id number], URIC #### [address] #### KAPPA, SHORTY SERUM, SPE W INTERPRET #### [facility] , Immunofixation,Serumon 04-10 Immunofixation, Serum Comment Normal . [facility] Comment on above: Result Comment: No m onoclonality detected. Performed By: #### P TH, CLAUDY, RENAL, FE and TIBC, CBCNO, [id number], MG, [id number], URIC #### [address] #### KAPPA, SHORTY SERUM, SPE W INTERPRET #### [facility] , Immunoglobulin A, Serum 221 mg/dL Normal 64-422 [facility] Comment on above: Performed By: #### P TH, CLAUDY, RENAL, FE and TIBC, CBCNO, [id number], MG, [id number], URIC #### [place] [address] [place] #### KAPPA, SHORTY SERUM, SPE W INTERPRET #### [facility] , Immunoglobulin G 989 mg/dL Normal 586-1602 [facility] Comment on above: Performed By: #### P TH, CLAUDY, RENAL, FE and TIBC, CBCNO, [id number], MG, [id number], URIC #### [place] [address] [place] #### KAPPA, SHORTY SERUM, SPE W INTERPRET #### [facility] , Immunoglobulin M, Serum 66 mg/dL Normal 26-217 [facility] Comment on above: Result Comment: Perf ormed at: - [facility] [address] [id number] Job Coach/Job Developer: Jerrell Bautista PhD, Phone: [phone] Performed By: #### P TH, CLAUDY, RENAL, FE and TIBC, CBCNO, [id number], MG, [id number], URIC #### [place] [address] [place] #### KAPPA, SHORTY SERUM, SPE W INTERPRET #### [facility] , Iron [Mass/volume] in Serum or PlasmaOrdered By: Morgan Womack on 04-10-2024 Iron [Mass/Vol] Iron [Mass/volume] i n Serum or Plasma 50-212 [facility] Iron and TIBC Profileon 03-23-2023 % Iron Saturation 15.2 % Low 20-50 [facility] Comment on above: Performed By: #### P TH, CLAUDY, RENAL, FE and TIBC, CBCNO, [id number], MG, [id number], URIC #### [place] [address] [place] #### KAPPA, SHORTY SERUM, SPE W INTERPRET #### [facility] , Iron [Mass/Vol] 61 ug/dL Normal 50-212 [facility] Comment on above: Performed By: #### P TH, CLAUDY, RENAL, FE and TIBC, CBCNO, [id number], MG, [id number], URIC #### [place] [address] [place] #### KAPPA, SHORTY SERUM, SPE W INTERPRET #### [facility] , Total Iron Binding Capacity 402 ug/dL Normal 255-450 [facility] Comment on above: Performed By: #### P TH, CLAUDY, RENAL, FE and TIBC, CBCNO, [id number], MG, [id number], URIC #### [place] [address] [place] #### KAPPA, SHORTY SERUM, SPE W INTERPRET #### [facility] , Transferrin [Mass/Vol] 287 mg/dL Normal 203-362 [facility] Comment on above: Performed By: #### P TH, CLAUDY, RENAL, FE and TIBC, CBCNO, [id number], MG, [id number], URIC #### [facility] [address] #### KAPPA, SHORTY SERUM, SPE W INTERPRET #### [facility] , Ketones Test strip Ql (U)Ord ered By: Morgan Womack on 04-10-2024 Ketones Ql (U) Ketones [Presence] i n Urine by Test strip Negative [facility] Leukocyte esterase [Presence ] in Urine by Test stripOrdered By: Morgan Womack on 04-10-2024 Leukocyte esterase Test strip Ql (U) Leukocyte esterase [Presence] in Urine by Test strip High Negative [facility] Leukocytes [#/area] in Urine sediment by Automated countOrdered By: Morgan Womack on 04-10-2024 WBC Auto (Urine sed) [#/Area] Leukocytes [#/area] in Urine sediment by Automated count High 0-4 [facility] Leukocytes [#/volume] correc angely for nucleated erythrocytes in Blood by Automated counOrdered By: Morgan Womack on 04-10-2024 WBC corrected for nucl RBC Auto (Bld) [#/Vol] Leukocytes [#/volume] corrected for nucleated erythrocytes in Blood by Automated coun 3.8-11.6 [facility] MCH Auto (RBC) [Entitic mass ]Ordered By: Morgan Womack on 04-10-2024 MCH (RBC) [Entitic mass] MCH [Entitic mass] by Automated count 24.7-34.3 [facility] MCHC Auto (RBC) [Mass/Vol]Or dered By: Morgan Womack on 04-10-2024 MCHC (RBC) [Mass/Vol] MCHC [Mass/volume] by Automated count 32.0-35.0 [facility] MCV Auto (RBC) [Entitic vol] Ordered By: Morgan Womack on 04-10-2024 MCV (RBC) [Entitic vol] MCV [Entitic volume] by Automated count 80-100 [facility] Magnesiumon 04-10-2024 Magnesium [Mass/Vol] 2.3 mg/dL Normal 1.9-2.7 [facility] Comment on above: Performed By: #### P TH, CLAUDY, RENAL, FE and TIBC, CBCNO, [id number], MG, [id number], URIC #### [facility] [address] #### KAPPA, SHORTY SERUM, SPE W INTERPRET #### [facility] , Magnesium [Mass/volume] in S chuck or PlasmaOrdered By: Morgan Womack on 04-10-2024 Magnesium [Mass/Vol] Magnesium [Mass/volume] in Serum or Plasma 1.9-2.7 [facility] Mucus [Presence] in Urine by AutomatedOrdered By: Morgan Womack on 04-10-2024 Mucus Auto Ql (U) Mucus [Presence] in Urine by Automated [facility] Nitrite Test strip Ql (U)Ord ered By: Morgan Womack on 04-10-2024 Nitrite Ql (U) Nitrite [Presence] i n Urine by Test strip Negative [facility] No Panel InformationOrdered By: Morgan Womack on 04-10-2024 Estimated GFR (CKD-EPI) 36.116 mL/Min [facility] Creatinine Clearance (Chem N/A [facility] Protein Electrophoresis Interpret Comment . [facility] Comment on above: The SPE pattern appe ars unremarkable. Evidence ofmonoclonal protein is not apparent.Performed at: [facility] [address] [id number] Director: Jerrell Bautista PhD, Phone: [phone] Protein Electrophoresis M-Jasson Not observed g/dL Not Observed [facility] Protein Electrophoresis Note Comment . [facility] Comment on above: Protein electrophore sis scan will follow via computer,mail, or firearms expert delivery. Parathyrin.intact [Mass/volu me] in Serum or PlasmaOrdered By: Morgan Womack on 04-10-2024 Parathyrin.intact [Mass/Vol] Parathyrin.intact [Mass/volume] in Serum or Plasma [facility] Parathyroid Hormone Intacton 04-10-2024 Parathyroid Hormone Intact 50.5 pg/mL Normal [facility] Comment on above: Result Comment: PERF ORMED BY: [place] [address] PATHOLOGIST RUBBER TRIMMER CARON MUNOZ M.D. Performed By: #### P TH, CLAUDY, RENAL, FE and TIBC, CBCNO, [id number], MG, [id number], URIC #### [facility] [address] [place] [address] #### KAPPA, SHORTY SERUM, SPE W INTERPRET #### [facility] , Phosphate [Mass/volume] in S chuck or PlasmaOrdered By: Morgan Womack on 04-10-2024 Phosphate [Mass/Vol] Phosphate [Mass/volume] in Serum or Plasma 2.5-4.5 [facility] Platelet mean volume Auto (B ld) [Entitic vol]Ordered By: Morgan Womack on 04-10-2024 Platelet mean volume (Bld) [Entitic vol] Platelet mean volume [Entitic volume] in Blood by Automated count 6.3-10.7 [facility] Platelets Auto (Bld) [#/Vol] Ordered By: Morgan Womack on 04-10-2024 Platelets (Bld) [#/Vol] Platelets [#/volume] in Blood by Automated count 150-450 [facility] Potassium [Moles/volume] in Serum or PlasmaOrdered By: Morgan Womack on 04-10-2024 Potassium [Moles/Vol] Potassium [Moles/volume] in Serum or Plasma 3.5-5.1 [facility] Prot Electrophoresis w/Inter drew 04-10-2024 Albumin [Mass/Vol] 3.9 g/dL Normal 2.9-4.4 [facility] Comment on above: Performed By: #### P TH, CLAUDY, RENAL, FE and TIBC, CBCNO, [id number], MG, [id number], URIC #### [facility] [address] [place] [address] [place] #### KAPPA, SHORTY SERUM, SPE W INTERPRET #### [facility] , Albumin/Globulin [Mass ratio] 1.3 {ratio} Normal 0.7-1.7 [facility] Comment on above: Performed By: #### P TH, CLAUDY, RENAL, FE and TIBC, CBCNO, [id number], MG, [id number], URIC #### [address] #### KAPPA, SHORTY SERUM, SPE W INTERPRET #### [facility] , Fvxtd-2-Vzvtkhde 0.2 g/dL Normal 0.0-0.4 [facility] Comment on above: Performed By: #### P TH, CLAUDY, RENAL, FE and TIBC, CBCNO, [id number], MG, [id number], URIC #### [address] #### KAPPA, SHORTY SERUM, SPE W INTERPRET #### [facility] , Yggvf-8-Dpqciggc 0.8 g/dL Normal 0.4-1.0 [facility] Comment on above: Performed By: #### P TH, CLAUDY, RENAL, FE and TIBC, CBCNO, [id number], MG, [id number], URIC #### [address] #### KAPPA, SHORTY SERUM, SPE W INTERPRET #### [facility] , Beta Globulin 1.0 g/dL Normal 0.7-1.3 [facility] Comment on above: Performed By: #### P TH, CLAUDY, RENAL, FE and TIBC, CBCNO, [id number], MG, [id number], URIC #### [place] [address] [place] #### KAPPA, SHORTY SERUM, SPE W INTERPRET #### [facility] , Gamma Globulin 1.0 g/dL Normal 0.4-1.8 [facility] Comment on above: Performed By: #### P TH, CLAUDY, RENAL, FE and TIBC, CBCNO, [id number], MG, [id number], URIC #### [place] [address] [place] #### KAPPA, SHORTY SERUM, SPE W INTERPRET #### [facility] , Globulin (S) [Mass/Vol] 2.9 g/dL Normal 2.2-3.9 [facility] Comment on above: Performed By: #### P TH, CLAUDY, RENAL, FE and TIBC, CBCNO, [id number], MG, [id number], URIC #### [place] [address] [place] #### KAPPA, SHORTY SERUM, SPE W INTERPRET #### [facility] , M-Jasson Not Observed Normal Not Observed [facility] Comment on above: Performed By: #### P TH, CLAUDY, RENAL, FE and TIBC, CBCNO, [id number], MG, [id number], URIC #### [place] [address] [place] #### KAPPA, SHORTY SERUM, SPE W INTERPRET #### [facility] , Protein [Mass/Vol] 6.8 g/dL Normal 6.0-8.5 [facility] Comment on above: Performed By: #### P TH, CLAUDY, RENAL, FE and TIBC, CBCNO, [id number], MG, [id number], URIC #### [place] [address] [place] #### KAPPA, SHORTY SERUM, SPE W INTERPRET #### [facility] , SPE-Interpretation Comment Normal . [facility] Comment on above: Result Comment: The SPE pattern appears unremarkable. Evidence of monoclonal protein is not apparent. Performed at: [address] [id number] Job Coach/Job Developer: Jerrell Bautista PhD, Phone: [phone] Performed By: #### P TH, CLAUDY, RENAL, FE and TIBC, CBCNO, [id number], MG, [id number], URIC #### [address] #### KAPPA, SHORTY SERUM, SPE W INTERPRET #### [facility] , SPE-Note Comment Normal . [facility] Comment on above: Result Comment: Prot ein electrophoresis scan will follow via computer, mail, or firearms expert delivery. Performed By: #### P TH, CLAUDY, RENAL, FE and TIBC, CBCNO, [id number], MG, [id number], URIC #### [place] [address] [place] #### KAPPA, SHORTY SERUM, SPE W INTERPRET #### [facility] , Protein Creat Ratio Ur Rando mon 04-10-2024 Creatinine, Urine (Random) 19.00 mg/dL Normal [facility] Comment on above: Result Comment: No r eference range established Performed By: #### P TH, CLAUDY, RENAL, FE and TIBC, CBCNO, [id number], MG, [id number], URIC #### [address] #### KAPPA, SHORTY SERUM, SPE W INTERPRET #### [facility] , Protein (U) [Mass/Vol] 5 mg/dL Normal 0-9 [facility] Comment on above: Performed By: #### P TH, CLAUDY, RENAL, FE and TIBC, CBCNO, [id number], MG, [id number], URIC #### [place] [address] [place] #### KAPPA, SHORTY SERUM, SPE W INTERPRET #### [facility] , Urine Protein/Creatinine Ratio 263 mg/g{Cre} High 0-200 [facility] Comment on above: Result Comment: PERF ORMED BY: [place] [address] PATHOLOGIST RUBBER TRIMMER CARON MUNOZ M.D. Performed By: #### P TH, CLAUDY, RENAL, FE and TIBC, CBCNO, [id number], MG, [id number], URIC #### [place] [address] [place] #### KAPPA, SHORTY SERUM, SPE W INTERPRET #### [facility] , Protein Test strip (U) [Mass /Vol]Ordered By: Morgan Shanta on 04-10-2024 Protein (U) [Mass/Vol] Protein [Mass/vol ume] in Urine by Test strip Negative [facility] Protein [Mass/volume] in Uri neOrdered By: Morgan Shanta on 04-10-2024 Protein (U) [Mass/Vol] Protein [Mass/vol ume] in Urine 0-9 [facility] RBC Auto (Bld) [#/Vol]Ordere d By: Morgan Shanta on 04-10-2024 RBC (Bld) [#/Vol] Erythrocytes [#/volume] in Blood by Automated count 3.60-5.00 [facility] Renal Function Panelon 04-10 Albumin [Mass/Vol] 4.1 g/dL Normal 3.5-5.7 [facility] Comment on above: Performed By: #### P TH, CLAUDY, RENAL, FE and TIBC, CBCNO, [id number], MG, [id number], URIC #### [place] [address] [place] #### KAPPA, SHORTY SERUM, SPE W INTERPRET #### [facility] , Anion gap [Moles/Vol] 10.1 mmol/L Normal 6.0-15.0 [facility] Comment on above: Performed By: #### P TH, CLAUDY, RENAL, FE and TIBC, CBCNO, [id number], MG, [id number], URIC #### [address] #### KAPPA, SHORTY SERUM, SPE W INTERPRET #### [facility] , Calcium [Mass/Vol] 9.6 mg/dL Normal 8.6-10.3 [facility] Comment on above: Performed By: #### P TH, CLAUDY, RENAL, FE and TIBC, CBCNO, [id number], MG, [id number], URIC #### [address] #### KAPPA, SHORTY SERUM, SPE W INTERPRET #### [facility] , Chloride [Moles/Vol] 104 mmol/L Normal 98-107 [facility] Comment on above: Performed By: #### P TH, CLAUDY, RENAL, FE and TIBC, CBCNO, [id number], MG, [id number], URIC #### [address] #### KAPPA, SHORTY SERUM, SPE W INTERPRET #### [facility] , CO2 [Moles/Vol] 30.6 mmol/L Normal 21.0-31.0 [facility] Comment on above: Performed By: #### P TH, CLAUDY, RENAL, FE and TIBC, CBCNO, [id number], MG, [id number], URIC #### [place] [address] [place] #### KAPPA, SHORTY SERUM, SPE W INTERPRET #### [facility] , Creatinine [Mass/Vol] 1.50 mg/dL High 0.60-1.20 [facility] Comment on above: Performed By: #### P TH, CLAUDY, RENAL, FE and TIBC, CBCNO, [id number], MG, [id number], URIC #### [place] [address] [place] #### KAPPA, SHORTY SERUM, SPE W INTERPRET #### [facility] , Estimated GFR 36.116 mL/Min Normal [facility] Comment on above: Performed By: #### P TH, CLAUDY, RENAL, FE and TIBC, CBCNO, [id number], MG, [id number], URIC #### [address] [place] [address] [place] #### KAPPA, SHORTY SERUM, SPE W INTERPRET #### [facility] , Glucose [Mass/Vol] 99 mg/dL Normal 70-100 [facility] Comment on above: Result Comment: [place] Glucose Reference Range is dependent on time and content of last meal. Glucose of more than 200 mg/dL in a nonstressed, ambulatory subject supports the diagnosis of Diabetes Mellitus. ADA recommended reference range Performed By: #### P TH, CLAUDY, RENAL, FE and TIBC, CBCNO, [id number], MG, [id number], URIC #### [place] [address] [place] #### KAPPA, SHORTY SERUM, SPE W INTERPRET #### [facility] , Phosphate [Mass/Vol] 4.3 mg/dL Normal 2.5-4.5 [facility] Comment on above: Performed By: #### P TH, CLAUDY, RENAL, FE and TIBC, CBCNO, [id number], MG, [id number], URIC #### [place] [address] [place] #### KAPPA, SHORTY SERUM, SPE W INTERPRET #### [facility] , Potassium [Moles/Vol] 4.7 mmol/L Normal 3.5-5.1 [facility] Comment on above: Performed By: #### P TH, CLAUDY, RENAL, FE and TIBC, CBCNO, [id number], MG, [id number], URIC #### [place] [address] [place] #### KAPPA, SHORTY SERUM, SPE W INTERPRET #### [facility] , Sodium [Moles/Vol] 140 mmol/L Normal 136-145 [facility] Comment on above: Performed By: #### P TH, CLAUDY, RENAL, FE and TIBC, CBCNO, [id number], MG, [id number], URIC #### [place] [address] [place] #### KAPPA, SHORTY SERUM, SPE W INTERPRET #### [facility] , Urea nitrogen [Mass/Vol] 22 mg/dL Normal 7-25 [facility] Comment on above: Performed By: #### P TH, CLAUDY, RENAL, FE and TIBC, CBCNO, [id number], MG, [id number], URIC #### [facility] [address] #### KAPPA, SHORTY SERUM, SPE W INTERPRET #### [facility] , Serum free kappa light chain measurementOrdered By: Morgan Womack on 04-10-2024 Immunoglobulin light chains.kappa.free (S) [Mass/Vol] Immunoglobulin light chains.kappa.free [Mass/volume] in Serum High 3.3-19.4 [facility] Serum globulin measurement ( mass/volume)Ordered By: Morgan Shanta on 04-10-2024 Globulin (S) [Mass/Vol] Serum globulin measurement (mass/volume) 2.2-3.9 [facility] Serum immunoglobulin free ka ppa light chains/immunoglobulin free lambda light chainsOrdered By: Morgan Shanta on 04-10-2024 Immunoglobulin light chains.kappa.free/Immu noglobulin light chains.lambda.free (S) [Mass ratio] Immunoglobulin light chains.kappa.free/Imm unoglobulin light chains.lambda.free [Mass 0.26-1.65 [facility] Comment on above: Performed at: [facility] [address] [id number] Director: Jerrell Bautista PhD, Phone: [phone] Serum or plasma albumin francisco urement (mass/volume)Ordered By: Morgan Shanta on 04-10-2024 Albumin [Mass/Vol] Albumin [Mass/volume ] in Serum or Plasma 2.9-4.4 [facility] Serum or plasma albumin/glob ulin mass ratioOrdered By: Morgan Shanta on 04-10-2024 Albumin/Globulin [Mass ratio] Serum or plasma albumin/globulin mass ratio 0.7-1.7 [facility] Serum or plasma alpha 1 glob ulin measurement by electrophoresis (mass/volume)Ordered By: Morgan Womack on 04-10-2024 Alpha 1 globulin Elph [Mass/Vol] Serum or plasma alpha 1 globulin measurement by electrophoresis (mass/volume) 0.0-0.4 [facility] Serum or plasma alpha 2 glob ulin measurement by electrophoresis (mass/volume)Ordered By: Morgan Womack on 04-10-2024 Alpha 2 globulin Elph [Mass/Vol] Serum or plasma alpha 2 globulin measurement by electrophoresis (mass/volume) 0.4-1.0 [facility] Serum or plasma anion gap de terminationOrdered By: Morgan Womack on 04-10-2024 Anion gap [Moles/Vol] Serum or plasma an ion gap determination 6.0-15.0 [facility] Serum or plasma beta globuli n measurement by electrophoresis (mass/volume)Ordered By: Morgan Womack on 04-10-2024 Beta globulin Elph [Mass/Vol] Serum or plasma beta globulin measurement by electrophoresis (mass/volume) 0.7-1.3 [facility] Serum or plasma gamma globul in measurement by electrophoresis (mass/volume)Ordered By: Morgan Womack on 04-10-2024 Gamma globulin Elph [Mass/Vol] Serum or plasma gamma globulin measurement by electrophoresis (mass/volume) 0.4-1.8 [facility] Serum or plasma immunoglobul in free lambda light chains measurement (mass/volume)Ordered By: Morgan Womack on 04-10-2024 Immunoglobulin light chains.lambda.free [Mass/Vol] Immunoglobulin light chains.lambda.free [Mass/volume] in Serum or Plasma 5.7-26.3 [facility] Serum or plasma iron binding capacity measurement (mass/volume)Ordered By: Morgan Womack on 04-10-2024 Iron binding capacity [Mass/Vol] Iron binding capacity [Mass/volume] in Serum or Plasma 255-450 [facility] Serum or plasma iron saturat ion measurement (mass fraction)Ordered By: Morgan Womack on 04-10-2024 Iron saturation [Mass fraction] Iron saturation [Mass Fraction] in Serum or Plasma Low 20-50 [facility] Serum total protein measurem entOrdered By: Morgan Womack on 04-10-2024 Protein [Mass/Vol] Protein [Mass/volume ] in Serum or Plasma 6.0-8.5 [facility] Sodium [Moles/volume] in Ser um or PlasmaOrdered By: Morgan Womack on 04-10-2024 Sodium [Moles/Vol] Sodium [Moles/volume ] in Serum or Plasma 136-145 [facility] Specific gravity Test strip (U) [Rel density]Ordered By: Morgan Womack on 04-10-2024 Specific gravity (U) [Rel density] Specific gravity of Urine by Test strip 1.001-1.030 [facility] Transferrin [Mass/volume] in Serum or PlasmaOrdered By: Morgan Womack on 04-10-2024 Transferrin [Mass/Vol] Transferrin [Mass/volume] in Serum or Plasma 203-362 [facility] US renal BIon 04-10-2024 US renal [facility] [place] [address] Ultrasound Report Signed Patient: Eleanor Mcclain MR#: [id number] : 1950 Acct:[id number] Age/Sex: 73 / F ADM Date: 04/10/24 Loc: Room: Type: [facility] Attending Dr: Morgan Womack MD Ordering Provider: [...] findings. Impression dictated by: Shant Pastrana Jr., D.O.04/10/2024 3:04 PM Dictation Location: [place] [address] Tech: Susan Casper Transcribed By: CATA 04/10/24 1504 Dictated By: Shant Pastrana Jr, DO 04/10/24 1503 Signed By: 04/10/24 1504 Normal [facility] Urate [Mass/volume] in Serum or PlasmaOrdered By: Morgan Womack on 04-10-2024 Urate [Mass/Vol] Urate [Mass/volume] in Serum or Plasma 2.3-6.6 [facility] Urea nitrogen [Mass/volume] in Serum or PlasmaOrdered By: Morgan Womack on 04-10-2024 Urea nitrogen [Mass/Vol] Urea nitrogen [Mass/volume] in Serum or Plasma 7 [facility] Uric Acidon 04-10-2024 Urate [Mass/Vol] 4.8 mg/dL Normal 2.3-6.6 [facility] Comment on above: Performed By: #### P TH, CLAUDY, RENAL, FE and TIBC, CBCNO, [id number], MG, [id number], URIC #### [facility] [address] [place] [address] #### KAPPA, SHORTY SERUM, SPE W INTERPRET #### [facility] , Urine Cultureon 04-10-2024 Bacteria identified Cx Nom (U) ORGANISM: Escherichia coli (MDRO) (O:ESCCOLMDRO) [place] Count >100,000 Aerobic DEANNA Charge (NMIC56) ---- [...] RESISTANT TO ALL B-LACTAM DRUGS. PERFORMED BY: [place] [address] PATHOLOGIST RUBBER TRIMMER CARON MUNOZ M.D. Normal [facility] Comment on above: Performed By: #### P TH, CLAUDY, RENAL, FE and TIBC, CBCNO, [id number], MG, [id number], URIC #### [facility] [address] [place] [address] [place] #### KAPPA, SHORTY SERUM, SPE W INTERPRET #### [facility] , Urine protein/creatinine rat ioOrdered By: Morgan Womack on 04-10-2024 Protein/Creatinine (U) [Ratio] Urine protein/creatinine ratio High 0-200 [facility] Urobilinogen Test strip (U) [Mass/Vol]Ordered By: Morgan Womack on 04-10-2024 Urobilinogen (U) [Mass/Vol] Urobilinogen [Mass/volume] in Urine by Test strip Normal [facility] Vit. B12/Folate Profileon Cobalamin (Vitamin B12) [Mass/Vol] 186 pg/mL Normal 180-914 [facility] Comment on above: Performed By: #### P TH, CLAUDY, RENAL, FE and TIBC, CBCNO, [id number], MG, [id number], URIC #### [facility] [address] [place] [address] [place] #### KAPPA, SHORTY SERUM, SPE W INTERPRET #### [facility] , Folate 13.5 ng/mL Normal >5.9 [facility] Comment on above: Result Comment: Grazyna te reference range: >5.9 ng/ml The WHO technical consultation on folate and vitamin b12 deficiencies has determined that folate concentrations less than 4 ng/ml are considered deficient. Performed By: #### P TH, CLAUDY, RENAL, FE and TIBC, CBCNO, [id number], MG, [id number], URIC #### [facility] [address] [place] [address] #### KAPPA, SHORTY SERUM, SPE W INTERPRET #### [facility] , Vitamin B12 ser/plasOrdered By: Morgan Womack on 04-10-2024 Cobalamin (Vitamin B12) [Mass/Vol] Vitamin B12 ser/plas 180-914 [facility] Vitamin D 25 Hydroxy Totalon 04-10-2024 Vitamin D 25 Hydroxy Total 97.6 ng/mL Normal 30-100 [facility] Comment on above: Result Comment: JOSEPHINE MIN D STATUS 25(OH)VITAMIN D RANGE (ng/mL) Deficient <20 Insufficient 20 to <30 Sufficient 30 to 100 Reference: Candace MF,Robert NC, Chastity SARABIA, et al. Evaluation,treatment, and prevention of vitamin D deficiency; an Endocrine Society clinical practice guideline. JCEM. 2010; 96(7):1911-30. PERFORMED BY: [place] [address] PATHOLOGIST RUBBER TRIMMER CARON MUNOZ M.D. Performed By: #### P TH, CLAUDY, RENAL, FE and TIBC, CBCNO, [id number], MG, [id number], URIC #### [place] [address] [place] #### KAPPA, SHORTY SERUM, SPE W INTERPRET #### [facility] , Vitamin D+Metabolites [Mass/ volume] in Serum or PlasmaOrdered By: Morgan Womack on 04-10-2024 Vitamin D+Metabolites [Mass/Vol] Vitamin D+Metabolites [Mass/volume] in Serum or Plasma 30-100 [facility] Comment on above: VITAMIN D STATUS 25( OH)VITAMIN D RANGE (ng/mL) Deficient <20 Insufficient 20 to <30Sufficient 30 to 100Reference: Candace MF,Robert MARTIN, Chastity SARABIA, et al. Evaluation,treatment, and prevention of vitamin D deficiency; an Endocrine Society clinical practice guideline. JCEM. 2010; 96(7):1911-30. pH Test strip (U)Ordered By: Morgan Womack on 04-10-2024 pH (U) pH of Urine by Test strip 5.0-9.0 [facility] Nuclear stress test with rojelio cardial perfusionon 09-28-2023 Nuc Stress EF 65 % BON [employer] Stress Target HR 146 bpm BON SEC[employer] Image quality is good. Stress Test: A [...] stress end diastolic cavity size is normal. [facility] CV RPACS STRESS [facility] Nuclear stress test with rojelio cardial perfusionon 09-27-2023 Radiology Study observation (narrative) [facility] Glucose, Whole Bloodon 08-31 Glucose [Mass/Vol] 104 mg/dL High 74-100 [facility] CULTURE URINEon 07-27-2022 CULTURE URINE Isolate 1 [...] F Trimethoprim/Sulfamet hoxazole <=20 S F Normal [facility] Comment on above: Performed By: #### U RCX ####[facility] [address] [place], [place] [address]DzDr. Davidson Saunders CBC AUTO DIFFon 07-25-2022 BASO # 0.1 103/ul Normal 0.0-0.1 [facility] Comment on above: Performed By: #### P OCGLUC #### [facility] [address] [place] [address] [address] Davidson Saunders Basophils/100 WBC (Bld) 0.5 % Normal 0.2-2.0 [facility] Comment on above: Performed By: #### P OCGLUC #### [facility] [address] [place] [address] [address] Davidson Saunders EO # 0.2 103/ul Normal 0.0-0.7 [facility] Comment on above: Performed By: #### P OCGLUC #### [facility] [address] [place] [address] [address] Davidson Saunders Eosinophils/100 WBC (Bld) 1.6 % Normal 0.9-7.0 [facility] Comment on above: Performed By: #### P OCGLUC #### [facility] [address] [place] [address] [address] Davidson Saunders Erythrocyte distribution width (RBC) [Ratio] 12.7 % Normal 11.0-15.0 [facility] Comment on above: Performed By: #### P OCGLUC #### [facility] [address] [place] [address] [address] Davidson Saunders Hematocrit (Bld) [Volume fraction] 38.7 % Normal 36.0-48.0 [facility] Comment on above: Performed By: #### P OCGLUC #### [facility] [address] [place] [address] [address] Davidson Saunders Hemoglobin (Bld) [Mass/Vol] 13.2 g/dL Normal 12.0-16.0 [facility] Comment on above: Performed By: #### P OCGLUC #### [facility] [address] [place] [address] [address] Davidson Saunders IG # 0.17 10e3/ul Critically high 0.00-0.03 [facility] Comment on above: Performed By: #### P OCGLUC #### [facility] [address] [place] [address] [address] Davidson Saunders IG % 1.1 % Critically high 0.0-0.5 [facility] Comment on above: Performed By: #### P OCGLUC #### [facility] [address] [place] [address] [address] Davidson Saunders LYMPH # 3.5 103/ul Normal 1.2-3.8 [facility] Comment on above: Performed By: #### P OCGLUC #### [facility] [address] [place] [address] [address] Davidson Saunders Lymphocytes/100 WBC (Bld) 23.7 % Normal 20.5-60.0 [facility] Comment on above: Performed By: #### P OCGLUC #### [facility] [address] [place] [address] [address] Davidson Saunders MANUAL DIFF REQ NO Normal [facility] Comment on above: Performed By: #### P OCGLUC #### [facility] [address] [place] [address] [address] Davidson Saunders MCH (RBC) [Entitic mass] 28.0 pg Normal 26.7-34.0 [facility] Comment on above: Performed By: #### P OCGLUC #### [facility] [address] [place] [address] [address] Davidson Saunders MCHC (RBC) [Mass/Vol] 34.1 g/dL Normal 29.9-35.2 [facility] Comment on above: Performed By: #### P OCGLUC #### [facility] [address] [place] [address] [address] Davidson Saunders MCV (RBC) [Entitic vol] 82.2 fL Normal 81.0-99.0 [facility] Comment on above: Performed By: #### P OCGLUC #### [facility] [address] [place] [address] [address] Davidson Saunders MONO # 1.1 103/ul Critically high 0.3-0.8 [facility] Comment on above: Performed By: #### P OCGLUC #### [facility] [address] [place] [address] [address] Davidson Saunders Monocytes/100 WBC (Bld) 7.1 % Normal 1.7-12.0 [facility] Comment on above: Performed By: #### P OCGLUC #### [facility] [address] [place] [address] [address] Davidson Saunders NEUT # 9.8 103/ul Critically high 1.4-6.5 [facility] Comment on above: Performed By: #### P OCGLUC #### [facility] [address] [place] [address] [address] Davidson Saunders Neutrophils/100 WBC (Bld) 66.0 % Normal 43.0-75.0 [facility] Comment on above: Performed By: #### P OCGLUC #### [facility] [address] [place] [address] Dr. Davidson Saunders Platelet mean volume (Bld) [Entitic vol] 9.0 fL Critically low 9.5-13.5 [facility] Comment on above: Performed By: #### P OCGLUC #### [facility] [address] [place] [address] Dr. Davidson Saunders PLT 201 103/ul Normal 150-450 [facility] Comment on above: Performed By: #### P OCGLUC #### [facility] [address] [place] [address] [address] Davidson Saunders RBC 4.71 106/ul Normal 4.20-5.40 [facility] Comment on above: Performed By: #### P OCGLUC #### [facility] [address] [place] [address] [address] Davidson Saunders WBC 14.9 103/ul Critically high 4.0-11.0 [facility] Comment on above: Performed By: #### P OCGLUC #### [facility] [address] [place] [address] Dr. Davidson Saunders ER URINE PROFILEon 3 Bilirubin Ql (U) Negative Normal NEGATIVE [facility] Comment on above: Performed By: #### MAKAYLA ALVARESICRO ####[facility] [address] [place] [address]Dr. Davidson Saunders Clarity (U) CLOUDY Abnormal CLEAR [facility] Comment on above: Performed By: #### Zbigniew BANUELOS UMICRO ####[facility] [address] [place] [address]Dr. Davidson Saunders Color (U) DK. YELLOW Normal YELLOW [facility] Comment on above: Performed By: #### Zbigniew BANUELOS UMICRO ####[facility] [address] [place], [place] [address]Dr. Davidson Saunders ERUAHD A micrscopic examination will be performed if indicated. Normal [facility] Comment on above: Performed By: #### CHARO ALVARESRO ####[facility] [address] [place], [place] [address]Dr. Davidson Saunders Glucose Ql (U) Negative Normal NEGATIVE [facility] Comment on above: Performed By: #### Zbigniew BANUELOS ICRO ####[facility] [address] [place], [place] [address]Dr. Davidson Saunders Hemoglobin Ql (U) Negative Normal NEGATIVE The [facility] Comment on above: Performed By: #### Zbigniew BANUELOS UMICRO ####[facility] [address] [place], [place] [address]Dr. Davidson Saunders Ketones Ql (U) Negative Normal NEGATIVE [facility] Comment on above: Performed By: #### MAKAYLA ALVARESICRO ####[facility] [address] [place], [place] [address]Dr. Davidson Saunders LEUKOCYTES LARGE Abnormal NEGATIVE [facility] Comment on above: Performed By: #### CHARO ALVARESRO ####[facility] [address] [place], [place] [address]Dr. Davidson Saunders Nitrite Ql (U) Positive Abnormal NEGATIVE [facility] Comment on above: Performed By: #### CHARO ALVARESRO ####[facility] [address] [place], [place] [address]Dr. Davidson Saunders pH (U) [pH] Abnormal 5-9 [facility] Comment on above: Performed By: #### TAVO ALVARES ####[facility] [address] [place] [address]Dr. Davidson Saunders Protein (U) [Mass/Vol] 100 mg/dL Abnormal NEGAT JUNITO/ TRACE [facility] Comment on above: Performed By: #### TAVO ALVARES ####[facility] [address] [place] [address]Dr. Davidson Saunders SPEC GRAVITY 1.010 Normal 1.005-<=1.025 [facility] Comment on above: Performed By: #### TAVO ALVARES ####[facility] [address] [place] [address]Dr. Davidson Saunders UR MICRO IND INDICATED Normal [facility] Comment on above: Performed By: #### TAVO ALVARES ####[facility] [address] [place], [place] [address]Dr. Davidson Saunders Urobilinogen Qn (U) 1.0 {Balaji'U}/dL Normal 0.2 - 1. 0 [facility] Comment on above: Performed By: #### TAVO ALVARES ####[facility] [address] [place] [address]Dr. Davidson Saunders PROF CHEM 8 (BAS METB)on Anion gap [Moles/Vol] 13.6 mmol/L Normal [facility] Comment on above: Performed By: #### B UD, HSTROPN ####[facility] [address] [place] [address]Dr. Davidson Saunders Calcium [Mass/Vol] 9.6 mg/dL Normal 8.5-10.1 [facility] Comment on above: Performed By: #### B DU, HSTROPN ####[facility] [address] [place] [address]Dr. Davidson Saunders Chloride [Moles/Vol] 100 mmol/L Normal 98-107 [facility] Comment on above: Performed By: #### B DU, HSTROPN ####[facility] [address] [place] [address]Dr. Davidson Saunders CO2 [Moles/Vol] 28.1 mmol/L Normal 21.0-32.0 [facility] Comment on above: Performed By: #### B DU, HSTROPN ####[facility] [address] [place] [address]Dr. Davidson Saunders Creatinine [Mass/Vol] 1.94 mg/dL Critically high 0.55-1.02 [facility] Comment on above: Performed By: #### B DU, HSTROPN ####[facility] [address] [place] [address]Dr. Davidson Saunders EGFR-AF ZIMBABWEAN 31 mL/min/1.73m2 Critically low >=60 [facility] Comment on above: Performed By: #### B DU, HSTROPN ####[facility] [address] [place], [place] [address]Dr. Davidson Saunders EGFR-NON AF ZIMBABWEAN 25 mL/min/1.73m2 Critically low >=60 [facility] Comment on above: Performed By: #### B DU, HSTROPN ####[facility] [address] [place] [address]Dr. Davidson Saunders Glucose [Mass/Vol] 165 mg/dL Critically high 74-106 [facility] Comment on above: Performed By: #### B DU, HSTROPN ####[facility] [address] [place] [address]Dr. Meicharlotte Saunders Potassium [Moles/Vol] 3.7 mmol/L Normal 3.5-5.1 [facility] Comment on above: Performed By: #### B DU, HSTROPN ####[facility] [address] [place] [address]Dr. Davidson Saunders Sodium [Moles/Vol] 138 mmol/L Normal 136-145 [facility] Comment on above: Performed By: #### B DU, HSTROPN ####[facility] [address] [place] [address]Dr. Davidson Saunders Urea nitrogen [Mass/Vol] 41.0 mg/dL Critically high 7.0-18.0 [facility] Comment on above: Performed By: #### B DU, HSTROPN ####[facility] [address] [place] [address]Dr. Davidson Saunders Urea nitrogen/Creatinine [Mass ratio] 21.1 mg/mg Normal [facility] Comment on above: Performed By: #### B DU, HSTROPN ####[facility] [address] [place] [address]Dr. Davidson Chip TROPONIN, HIGH SENSITIVITYon 07-25-2022 HSTROP 32.9 pg/mL Normal 4.0-51.3 [facility] Comment on above: Result Comment: CUT- OFF POINTS HAVE BEEN ESTABLISHED BASED ON THE FOURTH UNIVERSAL DEFINITIONS OF MYOCARDIAL INFARCTION. THE UPPER REFERENCE LIMIT (URL) OF TROPONIN, DEFINED THE 99TH PERCENTILE OF cTnI DISTRIBUTION IN A REFERENCE POPULATION, HAS BEEN CONFIRMED THE DECISION THRESHOLD FOR NE DIAGNOSIS. Performed By: #### B DU, HSTROPN ####[facility] [address] [place], [place] [address]Dr. Davidson Saunders URINE MICROSCOPIC ONLYon BACTERIA MODERATE Abnormal NONE SEEN [facility] Comment on above: Performed By: #### Zbigniew BANUELOS UMJAYNERO ####[facility] [address] [place], [place] [address]Dr. Davidson Saunders Bacteria identified Cx Nom (U) INDICATED Normal [facility] Comment on above: Performed By: #### Zbigniew BANUELOS UMICRO ####[facility] [address] [place] [address]Dr. Davidson Saunders CAST NONE SEEN Normal NONE SEEN [facility] Comment on above: Performed By: #### Zbigniew BANUELOS UMICRO ####[facility] [address] [place], [place] [address]Dr. Davidson Saunders Crystals LM Nom (Urine sed) SEEN Abnormal NONE SEEN [facility] Comment on above: Performed By: #### CHARO ALVARESRO ####[facility] [address] [place] [id number]. Davidson Saunders Epithelial cells LM Ql (Urine sed) FEW Abnormal NONE SEEN /RARE [facility] Comment on above: Performed By: #### Zbigniew BANUELOS, CHARORO ####[facility] [address] [place] [id number]. Davidson Saunders MUCOUS NONE SEEN Normal NONE SEEN [facility] Comment on above: Performed By: #### Zbigniew BANUELOS, CHARORO ####[facility] [address] [place] [id number]. Davidson Saunders RBC NONE SEEN Abnormal 0-2 [facility] Comment on above: Performed By: #### TAVO ALVARES ####[facility] [address] [place] [id number]. Davidson Saunders WBC 10-20 Abnormal NONE SEEN [facility] Comment on above: Performed By: #### TAVO ALVARES ####[facility] [address] [place] [id number]. Davidson Saunders XR CHEST 1 Von 07-25-2022 [...] ABHI CANTU Date: 2022-07-25 11:13 Normal [facility] COVID + FLU Quick Testingon 07-17-2022 SARS-CoV-2 (COVID-19) RNA SAE+probe Ql (Unsp spec) Negative [employer] Other COVID + FLU Quick Testing Negative [employer] Other CULTURE URINEon 01-01-2022 CULTURE URINE Isolate [...] Trimethoprim/Sulfamet hoxazole <=20 S F Normal [facility] Comment on above: Performed By: #### U RCX ####[facility] [address] [place] [address]Dr. Davidson Saunders CBC AUTO DIFFon 12-31-2021 BASO # 0.0 103/ul Normal 0.0-0.1 [facility] Comment on above: Performed By: #### A 1C #### [facility] [address] [place] [address] Dr. Davidson Saunders Basophils/100 WBC (Bld) 0.3 % Normal 0.2-2.0 [facility] Comment on above: Performed By: #### A 1C #### [facility] [address] [place] [address] Dr. Davidson Saunders EO # 0.0 103/ul Normal 0.0-0.7 [facility] Comment on above: Performed By: #### A 1C #### [facility] [address] [place] [address] Dr. Davidson Saunders Eosinophils/100 WBC (Bld) 0.0 % Critically low 0.9-7.0 [facility] Comment on above: Performed By: #### A 1C #### [facility] [address] [place] [address] Dr. Davidson Saunders Erythrocyte distribution width (RBC) [Ratio] 13.2 % Normal 11.0-15.0 [facility] Comment on above: Performed By: #### A 1C #### [facility] [address] [place] [address] Dr. Davidson Saunders Hematocrit (Bld) [Volume fraction] 30.5 % Critically low 36.0-48.0 [facility] Comment on above: Performed By: #### A 1C #### [facility] [address] [place] [address] Dr. Davidson Saunders Hemoglobin (Bld) [Mass/Vol] 10.0 g/dL Critically low 12.0-16.0 [facility] Comment on above: Performed By: #### A 1C #### [facility] [address] [place] [address] Dr. Davidson Saunders IG # 0.09 10e3/ul Critically high 0.00-0.03 [facility] Comment on above: Performed By: #### A 1C #### [facility] [address] [place] [address] Dr. Davidson Saunders IG % 0.9 % Critically high 0.0-0.5 [facility] Comment on above: Performed By: #### A 1C #### [facility] [address] [place] [address] Dr. Davidson Saunders LYMPH # 1.5 103/ul Normal 1.2-3.8 [facility] Comment on above: Performed By: #### A 1C #### [facility] [address] [place] [address] Dr. Davidson Saunders Lymphocytes/100 WBC (Bld) 14.2 % Critically low 20.5-60.0 [facility] Comment on above: Performed By: #### A 1C #### [facility] [address] [place] [address] Dr. Davidson Saunders MANUAL DIFF REQ NO Normal [facility] Comment on above: Performed By: #### A 1C #### [facility] [address] [place] [address] Dr. Davidson Saunders MCH (RBC) [Entitic mass] 28.1 pg Normal 26.7-34.0 [facility] Comment on above: Performed By: #### A 1C #### [facility] [address] [address] [address] Davidson Saunders MCHC (RBC) [Mass/Vol] 32.8 g/dL Normal 29.9-35.2 [facility] Comment on above: Performed By: #### A 1C #### [facility] [address] [address] [address] Davidson Saunders MCV (RBC) [Entitic vol] 85.7 fL Normal 81.0-99.0 [facility] Comment on above: Performed By: #### A 1C #### [facility] [address] [place] [address] Dr. Davidson Saunders MONO # 0.8 103/ul Normal 0.3-0.8 [facility] Comment on above: Performed By: #### A 1C #### [facility] [address] [address] [address] Davidson Saunders Monocytes/100 WBC (Bld) 8.1 % Normal 1.7-12.0 [facility] Comment on above: Performed By: #### A 1C #### [facility] [address] [place] [address] Dr. Davidson Saunders NEUT # 7.8 103/ul Critically high 1.4-6.5 [facility] Comment on above: Performed By: #### A 1C #### [facility] [address] [address] [address] Davidson Saunders Neutrophils/100 WBC (Bld) 76.5 % Critically high 43.0-75.0 [facility] [place] Comment on above: Performed By: #### A 1C #### [facility] [address] [address] [address] Davidson Saunders Platelet mean volume (Bld) [Entitic vol] 9.1 fL Critically low 9.5-13.5 [facility] [place] Comment on above: Performed By: #### A 1C #### [facility] [address] [place] [address] Dr. Davidson Saunders PLT 255 103/ul Normal 150-450 [facility] Comment on above: Performed By: #### A 1C #### [facility] [address] [place], [place] [address] Dr. Davidson Saunders RBC 3.56 106/ul Critically low 4.20-5.40 [facility] Comment on above: Performed By: #### A 1C #### [facility] [id number] Davidson Saunders WBC 10.2 103/ul Normal 4.0-11.0 [facility] [place] Comment on above: Performed By: #### A 1C #### [facility] [address] [address] [address] Davidson Saunders PROF 14(COMP METB)on 022 Albumin [Mass/Vol] 3.3 g/dL Critically low 3.4-5.0 [facility] Comment on above: Performed By: #### C MP ####[facility] [address] [address]DrGina Saunders Albumin/Globulin [Mass ratio] 0.8 {ratio} Normal [facility] [place] Comment on above: Performed By: #### C MP ####[facility] [address] [address]DrGina Saunders ALP [Catalytic activity/Vol] 92 U/L Normal 46-116 [facility] [place] Comment on above: Performed By: #### C MP ####[facility] [address] [address]DrGina Saunders ALT [Catalytic activity/Vol] 17 U/L Normal 14-59 [facility] [place] Comment on above: Performed By: #### C MP ####[facility] [address] [id number] Saunders Anion gap [Moles/Vol] 12.8 mmol/L Normal [facility] Comment on above: Performed By: #### C MP ####[facility] [address] [address]DrGina Saunders AST [Catalytic activity/Vol] 12 U/L Critically low 15-37 [facility] [place] Comment on above: Performed By: #### C MP ####[facility] [address] [phone]. Davidson Saunders Bilirubin [Mass/Vol] 0.2 mg/dL Normal 0.2-1.0 [facility] [place] Comment on above: Performed By: #### C MP ####[facility] [address] [phone]. Davidson Saunders Calcium [Mass/Vol] 9.2 mg/dL Normal 8.5-10.1 [facility] Comment on above: Performed By: #### C MP ####[facility] [address] [place], [place] [id number]. Davidson Saunders Chloride [Moles/Vol] 105 mmol/L Normal 98-107 [facility] [place] Comment on above: Performed By: #### C MP ####[facility] [address] [place], [place] [address]Dr. Davidson Saunders CO2 [Moles/Vol] 24.7 mmol/L Normal 21.0-32.0 [facility] Comment on above: Performed By: #### C MP ####[facility] [address] [place], [place] [address]Dr. Davidson Saunders Creatinine [Mass/Vol] 1.36 mg/dL Critically high 0.55-1.02 [facility] [place] Comment on above: Performed By: #### C MP ####[facility] [address] [place], [place] [address]Dr. Davidson Chip EGFR-AF ZIMBABWEAN 46 mL/min/1.73m2 Critically low >=60 [facility] Comment on above: Performed By: #### C MP ####[facility] [address] [id number]. Davidson Chip EGFR-NON AF ZIMBABWEAN 38 mL/min/1.73m2 Critically low >=60 [facility] Comment on above: Performed By: #### C MP ####[facility] [address] [place], [place] [address]Dr. Davidson Chip Globulin (S) [Mass/Vol] 4.3 g/dL Normal [facility] [place] Comment on above: Performed By: #### C MP ####[facility] [address] [phone]. Davidson Saunders Glucose [Mass/Vol] 106 mg/dL Normal 74-106 [facility] Comment on above: Performed By: #### C MP ####[facility] [address] [phone]. Davidson Saunders Potassium [Moles/Vol] 4.5 mmol/L Normal 3.5-5.1 [facility] [place] Comment on above: Performed By: #### C MP ####[facility] [address] [id number]. Davidson Chip Protein [Mass/Vol] 7.6 g/dL Normal 6.4-8.2 [facility] Comment on above: Performed By: #### C MP ####[facility] [address]ty[address] [address]Dr. Davidson Saunders Sodium [Moles/Vol] 138 mmol/L Normal 136-145 [facility] Comment on above: Performed By: #### C MP ####[facility] [address] [phone]. Davidson Chip Urea nitrogen [Mass/Vol] 24.0 mg/dL Critically high 7.0-18.0 [facility] [place] Comment on above: Performed By: #### C MP ####[facility] [address] [address]Dr. Davidson Saunders Urea nitrogen/Creatinine [Mass ratio] 17.6 mg/mg Normal [facility] [place] Comment on above: Performed By: #### C MP ####[facility] [address] [place] [address] [phone]. Davidson Saunders CARDIAC DIEGO 3-6on 2 CK [Catalytic activity/Vol] 42 U/L Normal 26-192 [facility] [place] Comment on above: Performed By: #### C MREP ####[facility] [address] [place] [address] [phone]. Davidson Saunders CK.MB [Mass/Vol] 1.07 ng/mL Normal <=3.60 [facility] Comment on above: Performed By: #### C MREP ####[facility] [address] [address]Dr. Davidson Saunders HSTROP 13.0 pg/mL Normal 4.0-51.3 [facility] Comment on above: Result Comment: CUT- OFF POINTS HAVE BEEN ESTABLISHED BASED ON THE FOURTH UNIVERSAL DEFINITIONS OF MYOCARDIAL INFARCTION. THE UPPER REFERENCE LIMIT (URL) OF TROPONIN, DEFINED THE 99TH PERCENTILE OF cTnI DISTRIBUTION IN A REFERENCE POPULATION, HAS BEEN CONFIRMED THE DECISION THRESHOLD FOR NE DIAGNOSIS. Performed By: #### C MREP ####[facility] [address] [address]Dr. Davidson Saunders CK [Catalytic activity/Vol] 47 U/L Normal 26-192 [facility] Comment on above: Performed By: #### C MREP #### [facility] [address] [address] [address] Davidson Saunders CK.MB [Mass/Vol] 0.69 ng/mL Normal <=3.60 [facility] Comment on above: Performed By: #### C MREP #### [facility] [address] [address] [address] Davidson Saunders HSTROP 12.8 pg/mL Normal 4.0-51.3 [facility] Comment on above: Result Comment: CUT- OFF POINTS HAVE BEEN ESTABLISHED BASED ON THE FOURTH UNIVERSAL DEFINITIONS OF MYOCARDIAL INFARCTION. THE UPPER REFERENCE LIMIT (URL) OF TROPONIN, DEFINED THE 99TH PERCENTILE OF cTnI DISTRIBUTION IN A REFERENCE POPULATION, HAS BEEN CONFIRMED THE DECISION THRESHOLD FOR NE DIAGNOSIS. Performed By: #### C MREP #### [facility] [address] [address] [address] Davidson Saunders CBC AUTO DIFFon 12-30-2021 BASO # 0.1 103/ul Normal 0.0-0.1 [facility] Comment on above: Performed By: #### C BC ####[facility] [address] [address]Dr. Davidson Saunders Basophils/100 WBC (Bld) 0.5 % Normal 0.2-2.0 [facility] Comment on above: Performed By: #### C BC ####[facility] [address] [address]Dr. Davidson Saunders EO # 0.1 103/ul Normal 0.0-0.7 [facility] [place] Comment on above: Performed By: #### C BC ####[facility] [address]owl[address] [phone]. Davidson Saunders Eosinophils/100 WBC (Bld) 1.1 % Normal 0.9-7.0 [facility] [place] Comment on above: Performed By: #### C BC ####[facility] [address]zrcti[address]qp[address] [place], [place] [address]Dr. Davidson Saunders Erythrocyte distribution width (RBC) [Ratio] 13.4 % Normal 11.0-15.0 [facility] [place] Comment on above: Performed By: #### C BC ####[facility] Bxxxdjix[address] [place], [place] [address]Dr. Davidson Saunders Hematocrit (Bld) [Volume fraction] 32.4 % Critically low 36.0-48.0 [facility] [place] Comment on above: Performed By: #### C BC ####[facility] [address] [place], [place] [address]Dr. Davidson Saunders Hemoglobin (Bld) [Mass/Vol] 10.5 g/dL Critically low 12.0-16.0 [facility] [place] Comment on above: Performed By: #### C BC ####[facility] K[address] [place], [place] [address]Dr. Davidson Saunders IG # 0.07 10e3/ul Critically high 0.00-0.03 [facility] Comment on above: Performed By: #### C BC ####[facility] [address]tsa[address] [place], [place] [address]Dr. Davidson Saunders IG % 0.6 % Critically high 0.0-0.5 [facility] Comment on above: Performed By: #### C BC ####[facility] [address] [place], [place] [address]DrGina Davidson Saunders LYMPH # 1.7 103/ul Normal 1.2-3.8 [facility] [place] Comment on above: Performed By: #### C BC ####[facility] [address] [address]Dr. Davidson Saunders Lymphocytes/100 WBC (Bld) 14.5 % Critically low 20.5-60.0 [facility] [place] Comment on above: Performed By: #### C BC ####[facility] [address] [address]Dr. Davidson Saunders MANUAL DIFF REQ NO Normal [facility] Comment on above: Performed By: #### C BC ####[facility] [address]ivsb[address] [address]Dr. Davidson Saunders MCH (RBC) [Entitic mass] 27.9 pg Normal 26.7-34.0 [facility] Comment on above: Performed By: #### C BC ####[facility] [address] [place], [place] [address]Dr. Davidson Saunders MCHC (RBC) [Mass/Vol] 32.4 g/dL Normal 29.9-35.2 [facility] [place] Comment on above: Performed By: #### C BC ####[facility] Rrwpqcfby[address] [place], [place] [address]Dr. Davidson Saunders MCV (RBC) [Entitic vol] 86.2 fL Normal 81.0-99.0 [facility] Comment on above: Performed By: #### C BC ####[facility] [address] [address]Dr. Davidson Saunders MONO # 1.1 103/ul Critically high 0.3-0.8 [facility] Comment on above: Performed By: #### C BC ####[facility] [address]ms[address] [place], [place] [address]Dr. Davidson Saunders Monocytes/100 WBC (Bld) 9.8 % Normal 1.7-12.0 [facility] Comment on above: Performed By: #### C BC ####[facility] Ymmglynzha[address] [place], [place] [address]Dr. Davidson Saunders NEUT # 8.6 103/ul Critically high 1.4-6.5 [facility] Comment on above: Performed By: #### C BC ####[facility] [address]isnvn[address] [address]Dr. Davidson Saunders Neutrophils/100 WBC (Bld) 73.5 % Normal 43.0-75.0 [facility] Comment on above: Performed By: #### C BC ####[facility] [address] [address]Dr. Davidson Saunders Platelet mean volume (Bld) [Entitic vol] 8.8 fL Critically low 9.5-13.5 [facility] Comment on above: Performed By: #### C BC ####[facility] [address] [phone]. Davidson Saunders PLT 222 103/ul Normal 150-450 [facility] Comment on above: Performed By: #### C BC ####[facility] [address]ix[address] [address]Dr. Davidson Saunders RBC 3.76 106/ul Critically low 4.20-5.40 [facility] Comment on above: Performed By: #### C BC ####[facility] [address] [id number]. Davidson Saunders WBC 11.6 103/ul Critically high 4.0-11.0 [facility] Comment on above: Performed By: #### C BC ####[facility] [address]gs[address] [phone]. Davidson Saunders CT STROKE HEAD WOon 12-31-19 [...] ANIYA SANTOYO Date: 2021-12-29 22:08 Normal [facility] Covid-19 PCR (CVDTB)on 12-21 SARS-CoV-2 (COVID-19) RNA SAE+probe Ql (Unsp spec) Detected Critically abnormal NOT DETECTED [facility] Comment on above: Result Comment: This test is not yet approved or cleared by the [place] FDA. When there are no FDA-approved or cleared tests available, and other criteria are met, FDA can make tests available under an emergency access mechanism called an Emergency Use Authorization (EUA). The EUA for this test is supported by the [employer] of Health and Human Service's declaration that [...] longer be used). Performed By: #### C VDTB ####[facility] [address] [place], [place] [address]GmGina WALTERS URINE PROFILEon 2 Bilirubin Ql (U) Negative Normal NEGATIVE [facility] Comment on above: Performed By: #### E TAVO BANUELOS ####[facility] Plylylfq[address] [place], [place] [address]Dr. Davidson Saunders Clarity (U) CLEAR Normal CLEAR [facility] Comment on above: Performed By: #### TAVO ALVARES ####[facility] Iyxdxufnum[address] [place], [place] [address]Dr. Davidson Saunders Color (U) LT. YELLOW Normal YELLOW [facility] Comment on above: Performed By: #### TAVO ALVARES ####[facility] [address]wnihrwe[address] [place], [place] [address]Dr. Davidson Saunders ERUAHD A micrscopic examination will be performed if indicated. Normal [facility] Comment on above: Performed By: #### TAVO ALVARES ####[facility] [address]xnwsbffzd[address] [place], [place] [address]Dr. Davidson Saunders Glucose Ql (U) Negative Normal NEGATIVE [facility] Comment on above: Performed By: #### TAVO ALVARES ####[facility] Faksxhsbph[address] [place], [place] [address]Dr. Davidson Saunders Hemoglobin Ql (U) TRACE-INTACT Abnormal NEGATIVE [facility] Comment on above: Performed By: #### TAVO ALVARES ####[facility] [address]wjpciuelk[address] [place], [place] [address]Dr. Davidson Saunders Ketones Ql (U) Negative Normal NEGATIVE [facility] Comment on above: Performed By: #### TAVO ALVARES ####[facility] Ldarzbhemt[address] [place], [place] [address]Dr. Davidson Saunders LEUKOCYTES SMALL Abnormal NEGATIVE [facility] Comment on above: Performed By: #### TAVO ALVARES ####[facility] W[address]xbfbqai[address] [place], [place] [address]Dr. Davidson Saunders Nitrite Ql (U) Positive Abnormal NEGATIVE [facility] Comment on above: Performed By: #### TAVO ALVARES ####[facility] Vnbfxslpli[address] [place], [place] [address]Dr. Davidson Saunders pH (U) 6.0 [pH] Normal 5-9 [facility] Comment on above: Performed By: #### Zbigniew BANUELOS UMICRO ####[facility] [address] [address]Dr. Davidson Saunders SPEC GRAVITY <=1.005 Abnormal 1.005-<=1.025 [facility] Comment on above: Performed By: #### Zbigniew BANUELOS UMICRO ####[facility] [address] [address]Dr. Davidson Saunders UA PROTEIN Negative Normal NEGATIVE/ TRACE [facility] Comment on above: Performed By: #### Zbigniew BANUELSO UMICRO ####[facility] [address] [address]Dr. Davidson Saunders UR MICRO IND INDICATED Normal [facility] [place] Comment on above: Performed By: #### CHARO ALVARESRO ####[facility] [address]xfs[address] [address]Dr. Davidson Saunders Urobilinogen Qn (U) 0.2 {Balaji'U}/dL Normal 0.2 - 1. 0 [facility] [place] Comment on above: Performed By: #### MAKAYLA ALVARESICRO ####[facility] [address] [address]Dr. Davidson Saunders LIPID PROFILEon 12-30-2021 CHOL-HDL RATIO NORM SEE BELOW Normal [facility] Comment on above: Result Comment: 3.3 - 4.4 LOW RISK 4.4 - 7.1 AVERAGE RISK 7.1 - 11.0 MODERATE RISK >11.0 HIGH RISK Performed By: #### P OCGLUC #### [facility] [address] [address] [address] Davidson Saunders Cholesterol [Mass/Vol] 170 mg/dL Normal <=200 [facility] Comment on above: Performed By: #### P OCGLUC #### [facility] [address] [address] [address] Davidson Saunders Cholesterol in HDL [Mass/Vol] 68 mg/dL Critically high 40-60 [facility] [place] Comment on above: Performed By: #### P OCGLUC #### [facility] [address] [address] [address] Davidson Saunders Cholesterol in LDL [Mass/Vol] 78.8 mg/dL Normal [facility] [place] Comment on above: Performed By: #### P OCGLUC #### [facility] [address] [address] [address] Davidson Saunders Cholesterol.total/Chol esterol in HDL [Mass ratio] 2.5 {ratio} Normal [facility] [place] Comment on above: Performed By: #### P OCGLUC #### [facility] [address] [address] [address] Davidson Saunders HDL NORMAL > or = 60 mg/dl - LO W CARDIOVASCULAR RISK <40 mg/dl - HIGH CARDIOVASCULAR RISK Normal [facility] [place] Comment on above: Performed By: #### P OCGLUC #### [facility] [address] [place] [address] Dr. Davidson Saunders LDL CALC NORMAL SEE BELOW Normal [facility] Comment on above: Result Comment: <100 mg/dl OPTIMAL 100 - 129 mg/dl NEAR OR ABOVE OPTIMAL 130 - 159 mg/dl BORDERLINE HIGH 160 - 189 mg/dl HIGH >190 mg/dl VERY HIGH Performed By: #### P OCGLUC #### [facility] [address] [address] [address] Davidson Saunders Triglyceride [Mass/Vol] 116 mg/dL Normal <=150 [facility] [place] Comment on above: Performed By: #### P OCGLUC #### [facility] [address] [place] [address] Dr. Davidson Saunders VLDL CALC 23.2 mg/dL Normal [facility] [place] Comment on above: Performed By: #### P OCGLUC #### [facility] [address] [address] [address] Davidson Saunders MRI BRAIN WO CONon 2 MRI BRAIN WO CON EXAM: MRI BRAIN [...] the basis of chronic microvascular angiopathic changes. Zbot-aw-eunbehom symmetric global volume loss without lobar predominance. [...] by: GISELLE BRENNAN Date: 2021-12-30 15:04 Normal [facility] [place] POINT OF CARE GLUCOSEon 12-21 Glucose [Mass/Vol] 441 mg/dL Critically high [address] [place] [address] Comment on above: Performed By: #### P OCGLUC #### [facility] [address] [address] [address] Davidson Saunders Glucose [Mass/Vol] 179 mg/dL Critically high [address] [place] [address] Comment on above: Performed By: #### P OCGLUC #### [facility] [address] [address] [address] Davidson Saunders Glucose [Mass/Vol] 110 mg/dL Critically high -106 [facility] Comment on above: Performed By: #### A 1C #### [facility] [address] [address] [address] Dvaidson Saunders PROF 14(COMP METB)on 022 Albumin [Mass/Vol] 3.6 g/dL Normal 3.4-5.0 [facility] Comment on above: Performed By: #### P OCGLUC #### [facility] [address] [address] [address] Davidson Saunders Albumin/Globulin [Mass ratio] 0.9 {ratio} Normal [facility] [place] Comment on above: Performed By: #### P OCGLUC #### [facility] [address] [address] [address] Davidson Saunders ALP [Catalytic activity/Vol] 105 U/L Normal 46-116 [facility] [place] Comment on above: Performed By: #### P OCGLUC #### [facility] [address] [address] [address] Davidson Saunders ALT [Catalytic activity/Vol] 20 U/L Normal 14-59 [facility] [place] Comment on above: Performed By: #### P OCGLUC #### [facility] [address] [address] [address] Davidson Saunders Anion gap [Moles/Vol] 17.1 mmol/L Normal [facility] Comment on above: Performed By: #### P OCGLUC #### [facility] [address] [address] [address] Davidson Saunders AST [Catalytic activity/Vol] 15 U/L Normal 15-37 [facility] [place] Comment on above: Performed By: #### P OCGLUC #### [facility] [address] [address] [address] Davidson Saunders Bilirubin [Mass/Vol] 0.3 mg/dL Normal 0.2-1.0 [facility] [place] Comment on above: Performed By: #### P OCGLUC #### [facility] [address] [address] [address] Davidson Saunders Calcium [Mass/Vol] 9.3 mg/dL Normal 8.5-10.1 [facility] Comment on above: Performed By: #### P OCGLUC #### [facility] [address] [address] [address] Davidson Saunders Chloride [Moles/Vol] 103 mmol/L Normal 98-107 [facility] [place] Comment on above: Performed By: #### P OCGLUC #### [facility] [address] [address] [address] Davidson Saunders CO2 [Moles/Vol] 25.0 mmol/L Normal 21.0-32.0 [facility] Comment on above: Performed By: #### P OCGLUC #### [facility] [address] [address] [address] Davidson Saunders Creatinine [Mass/Vol] 1.36 mg/dL Critically high 0.55-1.02 [facility] [place] Comment on above: Performed By: #### P OCGLUC #### [facility] [address] [address] [address] Davidson Saunders EGFR-AF ZIMBABWEAN 46 mL/min/1.73m2 Critically low >=60 [facility] [place] Comment on above: Performed By: #### P OCGLUC #### [facility] [address] [address] [address] Davidson Saunders EGFR-NON AF ZIMBABWEAN 38 mL/min/1.73m2 Critically low >=60 [facility] Comment on above: Performed By: #### P OCGLUC #### [facility] [address] [address] [address] Davidson Saunders Globulin (S) [Mass/Vol] 4.0 g/dL Normal [facility] Comment on above: Performed By: #### P OCGLUC #### [facility] [address] [address] [address] Davidson Saunders Glucose [Mass/Vol] 103 mg/dL Normal 74-106 [facility] Comment on above: Performed By: #### P OCGLUC #### [facility] [address] [address] [address] Davidson Saunders Potassium [Moles/Vol] 4.1 mmol/L Normal 3.5-5.1 [facility] Comment on above: Performed By: #### P OCGLUC #### [facility] [address] [address] [address] Davidson Saunders Protein [Mass/Vol] 7.6 g/dL Normal 6.4-8.2 [facility] Comment on above: Performed By: #### P OCGLUC #### [facility] [address] [address] [address] Davidson Saunders Sodium [Moles/Vol] 141 mmol/L Normal 136-145 [facility] Comment on above: Performed By: #### P OCGLUC #### [facility] [address] [address] [address] Davidson Saunders Urea nitrogen [Mass/Vol] 19.0 mg/dL Critically high 7.0-18.0 [facility] Comment on above: Performed By: #### P OCGLUC #### [facility] [address] [address] [address] Davidson Saunders Urea nitrogen/Creatinine [Mass ratio] 14.0 mg/mg Normal [facility] Comment on above: Performed By: #### P OCGLUC #### [facility] [address] [address] [address] Davidson Saunders TSHon 12-30-2021 TSH 0.403 uIU/mL Normal 0.358-3.740 [facility] Comment on above: Performed By: #### P OCGLUC #### [facility] [address] [address] [address] Davidson Saunders URINE MICROSCOPIC ONLYon BACTERIA LARGE Abnormal NONE SEEN [facility] Comment on above: Performed By: #### Zbigniew BANUELOS UMICRO ####[facility] [address] [address]DrGina Saunders Bacteria identified Cx Nom (U) INDICATED Normal [facility] Comment on above: Performed By: #### Zbigniew BANUELOS UMICRO ####[facility] [address] [address]DrGina Saunders CAST NONE SEEN Normal NONE SEEN [facility] Comment on above: Performed By: #### Zbigniew BANUELOS UMICRO ####[facility] [address] [address]DrGina Saunders Crystals LM Nom (Urine sed) NONE SEEN Normal NONE SEEN [facility] Comment on above: Performed By: #### Zbigniew BANUELOS UMICRO ####[facility] [address] [address]Dr. Davidson Saunders Epithelial cells LM Ql (Urine sed) RARE Normal NONE SEEN /RARE [facility] Comment on above: Performed By: #### TAVO ALVARES ####[facility] [address] [place], [place] [address]Rh. Davidson Saunders MUCOUS NONE SEEN Normal NONE SEEN [facility] Comment on above: Performed By: #### TAVO ALVARES ####[facility] [address] [place], [place] [address]Lp. Davidson Saunders RBC 0-2 Normal 0-2 [facility] Comment on above: Performed By: #### TAVO AVLARES ####[facility] [address] [place], [place] [address]Zx. Davidson Saunders WBC 10-20 Abnormal NONE SEEN [facility] Comment on above: Performed By: #### TAVO ALVARES ####[facility] [address] [id number]. Davidson Saunders US CAROTID ART BILon 022 [...] ABHI BECERRIL Date: 2021-12-30 07:46 Normal [facility] XR CHEST 2 Von 12-30-2021 XR CHEST [...] ABHI CARO Date: 2021-12-29 22:00 Normal [facility] CARDIAC DIEGO ADMITon 022 CK [Catalytic activity/Vol] 48 U/L Normal 26-192 [facility] Comment on above: Performed By: #### A 1C #### [facility] [address] [address] [address] Davidson Saunders CK.MB [Mass/Vol] 0.92 ng/mL Normal <=3.60 [facility] Comment on above: Performed By: #### A 1C #### [facility] [address] [address] [address] Davidson Saunders HSTROP 15.6 pg/mL Normal 4.0-51.3 [facility] Comment on above: Result Comment: CUT- OFF POINTS HAVE BEEN ESTABLISHED BASED ON THE FOURTH UNIVERSAL DEFINITIONS OF MYOCARDIAL INFARCTION. THE UPPER REFERENCE LIMIT (URL) OF TROPONIN, DEFINED THE 99TH PERCENTILE OF cTnI DISTRIBUTION IN A REFERENCE POPULATION, HAS BEEN CONFIRMED THE DECISION THRESHOLD FOR NE DIAGNOSIS. Performed By: #### A 1C #### [facility] [address] [address] [address] Davidson Saunders ROJELIO 57 ng/mL Normal 9-82 [facility] Comment on above: Performed By: #### A 1C #### [facility] [id number] Davidson Saunders CBC AUTO DIFFon 12-29-2021 BASO # 0.1 103/ul Normal 0.0-0.1 [facility] Comment on above: Performed By: #### C BC ####[facility] [address] [address]Dr. Davidson Saunders Basophils/100 WBC (Bld) 0.4 % Normal 0.2-2.0 [facility] Comment on above: Performed By: #### C BC ####[facility] [address] [place], [place] [address]DrGina Saunders EO # 0.1 103/ul Normal 0.0-0.7 [facility] Comment on above: Performed By: #### C BC ####[facility] [address] [place], [place] [address]DrGina Saunders Eosinophils/100 WBC (Bld) 1.0 % Normal 0.9-7.0 [facility] Comment on above: Performed By: #### C BC ####[facility] F[address] [place], [place] [address]DrGina Saunders Erythrocyte distribution width (RBC) [Ratio] 13.2 % Normal 11.0-15.0 [facility] Comment on above: Performed By: #### C BC ####[facility] [address] [place], [place] [address]DrGina Saunders Hematocrit (Bld) [Volume fraction] 31.6 % Critically low 36.0-48.0 [facility] Comment on above: Performed By: #### C BC ####[facility] [address] [place], [place] [address]DrGina Saunders Hemoglobin (Bld) [Mass/Vol] 10.5 g/dL Critically low 12.0-16.0 [facility] Comment on above: Performed By: #### C BC ####[facility] [address] [place], [place] [address]DrGina Saunders IG # 0.04 10e3/ul Critically high 0.00-0.03 [facility] Comment on above: Performed By: #### C BC ####[facility] [address] [place], [place] [address]DrGina Saunders IG % 0.4 % Normal 0.0-0.5 [facility] Comment on above: Performed By: #### C BC ####[facility] Gdc[address]onzy[address] [place], [place] [address]DrGina Saunders LYMPH # 1.6 103/ul Normal 1.2-3.8 [facility] Comment on above: Performed By: #### C BC ####[facility] [address] [address]DrGina Saunders Lymphocytes/100 WBC (Bld) 14.1 % Critically low 20.5-60.0 [facility] Comment on above: Performed By: #### C BC ####[facility] [address] [place], [place] [address]DrGina Saunders MANUAL DIFF REQ NO Normal [facility] Comment on above: Performed By: #### C BC ####[facility] [address] [address]DrGina Saunders MCH (RBC) [Entitic mass] 28.0 pg Normal 26.7-34.0 [facility] Comment on above: Performed By: #### C BC ####[facility] [address] [place], [place] [address]DrGina Saunders MCHC (RBC) [Mass/Vol] 33.2 g/dL Normal 29.9-35.2 [facility] Comment on above: Performed By: #### C BC ####[facility] [address] [place], [place] [address]DrGina Saunders MCV (RBC) [Entitic vol] 84.3 fL Normal 81.0-99.0 [facility] Comment on above: Performed By: #### C BC ####[facility] [address] [place], [place] [address]DrGina Saunders MONO # 1.0 103/ul Critically high 0.3-0.8 [facility] Comment on above: Performed By: #### C BC ####[facility] [address] [place], [place] [address]DrGina Saunders Monocytes/100 WBC (Bld) 9.0 % Normal 1.7-12.0 [facility] Comment on above: Performed By: #### C BC ####[facility] [address] [place], [place] [address]DrGina Saunders NEUT # 8.4 103/ul Critically high 1.4-6.5 [facility] Comment on above: Performed By: #### C BC ####[facility] [address] [id number] Saunders Neutrophils/100 WBC (Bld) 75.1 % Critically high 43.0-75.0 [facility] Comment on above: Performed By: #### C BC ####[facility] [address] [id number]. Davidson Saunders Platelet mean volume (Bld) [Entitic vol] 9.0 fL Critically low 9.5-13.5 [facility] Comment on above: Performed By: #### C BC ####[facility] [address] [id number]. Davidson Saunders PLT 257 103/ul Normal 150-450 [facility] Comment on above: Performed By: #### C BC ####[facility] [address] [id number]. Davidson Saunders RBC 3.75 106/ul Critically low 4.20-5.40 [facility] Comment on above: Performed By: #### C BC ####[facility] [address] [id number]. Davidson Saunders WBC 11.2 103/ul Critically high 4.0-11.0 [facility] Comment on above: Performed By: #### C BC ####[facility] [address] [id number]. Davidson Saunders PROF CHEM 8 (BAS METB)on Anion gap [Moles/Vol] 9.9 mmol/L Normal [facility] Comment on above: Performed By: #### A 1C #### [facility] [id number] Davidson Saunders Calcium [Mass/Vol] 9.5 mg/dL Normal 8.5-10.1 [facility] Comment on above: Performed By: #### A 1C #### [facility] [id number] Davidson Saunders Chloride [Moles/Vol] 101 mmol/L Normal 98-107 [facility] Comment on above: Performed By: #### A 1C #### [facility] [address] [address] [address] Davidson Saunders CO2 [Moles/Vol] 28.0 mmol/L Normal 21.0-32.0 [facility] Comment on above: Performed By: #### A 1C #### [facility] [address] [address] [address] Davidson Saunders Creatinine [Mass/Vol] 1.41 mg/dL Critically high 0.55-1.02 [facility] Comment on above: Performed By: #### A 1C #### [facility] [address] [place] [address] Dr. Davidson Saunders EGFR-AF ZIMBABWEAN 44 mL/min/1.73m2 Critically low >=60 [facility] Comment on above: Performed By: #### A 1C #### [facility] [address] [place] [address] Dr. Davidson Saunders EGFR-NON AF ZIMBABWEAN 37 mL/min/1.73m2 Critically low >=60 [facility] Comment on above: Performed By: #### A 1C #### [facility] [address] [place] [address] Dr. Davidson Saunders Glucose [Mass/Vol] 130 mg/dL Critically high 74-106 [facility] Comment on above: Performed By: #### A 1C #### [facility] [address] [place] [address] Dr. Davidson Saunders Potassium [Moles/Vol] 3.9 mmol/L Normal 3.5-5.1 [facility] Comment on above: Performed By: #### A 1C #### [facility] [address] [place] [address] Dr. Davidson Saunders Sodium [Moles/Vol] 135 mmol/L Critically low 136-145 [facility] Comment on above: Performed By: #### A 1C #### [facility] [address] [place] [address] Dr. Davidson Saunders Urea nitrogen [Mass/Vol] 20.0 mg/dL Critically high 7.0-18.0 [facility] Comment on above: Performed By: #### A 1C #### [facility] [address] [address] [address] Davidson Saunders Urea nitrogen/Creatinine [Mass ratio] 14.2 mg/mg Normal [facility] Comment on above: Performed By: #### A 1C #### [facility] [address] [address] [address] Davidson Saunders FREE T3on 12-16-2021 FREE T3 2.05 pg/mlL Critically low 2.18-3.98 [facility] Comment on above: Performed By: #### F T3, TSH ####[facility] [address] [address]Dr. Davidson Saunders FREE T4on 12-16-2021 Free T4 [Mass/Vol] 0.99 ng/dL Normal 0.76-1.46 [facility] Comment on above: Performed By: #### F T4 ####[facility] [address] [address]Dr. Davidson Saunders GLYCOHEMOGLOBIN A1Con 2021 ADA RECOMMENDATION SEE BELOW Normal [facility] Comment on above: Result Comment: ADA RECOMMENDED LIMIT 4.0 - 6.0 ADA THERAPEUTIC TARGET < 7.0 ACTION SUGGESTED > 7.0 Performed By: #### A 1C #### [facility] [address] [address] [address] Davidson Saunders Glucose [Mass/Vol] 134 mg/dL Normal [facility] Comment on above: Performed By: #### A 1C #### [facility] [address] [address] [address] Davidson Saunders HbA1c (Bld) [Mass fraction] 6.3 % Critically high 4.5-6.2 [facility] Comment on above: Performed By: #### A 1C #### [facility] [address] [address] [address] Davidson Saunders TSHon 12-16-2021 TSH 1.994 uIU/mL Normal 0.358-3.740 [facility] Comment on above: Performed By: #### F T3, TSH ####[facility] [address] [place], [place] [address]AvGina Saunders Free T3on 10-02-2021 FT3 3.29 pg/mL Normal 2.00-4.40 [facility] Comment on above: Performed By: #### T SH, FT4, FT3 #### [facility] [address] [place], [place] [id number] Free T4on 10-02-2021 Free T4 [Mass/Vol] 1.70 ng/dL Normal 0.80-1.80 [facility]well[facility]igniew [facility] Comment on above: Performed By: #### T SH, FT4, FT3 #### [facility] [address], [place] [id number] TSHon 10-02-2021 TSH 0.069 uIU/mL Low 0.400-4.500 [facility] Report Manager Comment on above: Performed By: #### T SH, FT4, FT3 #### [facility] [address], [place] [id number] Basic Metabolic Panelon 04-0 Anion gap [Moles/Vol] 15 mmol/L Normal 12-20 [facility] Comment on above: Result Comment: Effe ctive 05/28/2019 reference range changed. Performed By: #### B MP #### [facility] [address], [place] [id number] Calcium [Mass/Vol] 9.7 mg/dL Normal 8.6-10.2 [facility] Comment on above: Performed By: #### B MP #### [facility] [address], [place] [id number] Chloride [Moles/Vol] 104 mmol/L Normal 98-107 [facility] Comment on above: Performed By: #### B MP #### [facility] [address], [place] [id number] CO2 [Moles/Vol] 25 mmol/L Normal 20-31 [facility] Comment on above: Performed By: #### B MP #### [facility] [address], [place] [id number] Creatinine [Mass/Vol] 1.5 mg/dL High 0.6-1.4 [facility] Comment on above: Performed By: #### B MP #### [facility] [address], [place] [id number] eGFRAA 41 mL/min/1.73m2 Low >60 [facility] Comment on above: Performed By: #### B MP #### [facility] [address], [place] [id number] eGFRNAA 34 mL/min/1.73m2 Low >60 [facility] Comment on above: Performed By: #### B MP #### [facility] [address], [place] [id number] Glucose [Mass/Vol] 137 mg/dL High 65-99 [facility] Comment on above: Result Comment: For FASTING Glucose --- ADA reference ranges: Normal 65-99 mg/dl Prediabetes 100-125 Diabetes >/= 126 Performed By: #### B MP #### [facility] [address], [place] [id number] Potassium [Moles/Vol] 4.3 mmol/L Normal 3.5-5.5 [facility] Comment on above: Performed By: #### B MP #### [facility] [address] [place], [place] [id number] Sodium [Moles/Vol] 140 mmol/L Normal 135-146 [facility] Comment on above: Performed By: #### B MP #### [facility] [address] [place], [place] [id number] Urea nitrogen [Mass/Vol] 17 mg/dL Normal 7-25 [facility] Comment on above: Performed By: #### B MP #### [facility] [address], [place] [id number] PROF CHEM 8 (BAS METB)on Anion gap [Moles/Vol] 13.6 mmol/L Normal [facility] Comment on above: Performed By: #### B MP ####[facility] [address] [address]Dr. Davidson Saunders Calcium [Mass/Vol] 8.8 mg/dL Normal 8.5-10.1 [facility] Comment on above: Performed By: #### B MP ####[facility] [address] [place], [place] [address]Dr. Davidson Saunders Chloride [Moles/Vol] 103 mmol/L Normal 98-107 [facility] Comment on above: Performed By: #### B MP ####[facility] [address] [place], [place] [address]Dr. Davidson Saunders CO2 [Moles/Vol] 25.5 mmol/L Normal 22.0-30.0 [facility] Comment on above: Performed By: #### B MP ####[facility] [address]wn[address] [place], [place] [address]Dr. Davidson Saunders Creatinine [Mass/Vol] 1.80 mg/dL Critically high 0.52-1.04 [facility] Comment on above: Performed By: #### B MP ####[facility] [address] [place], [place] [address]Dr. Davidson Saunders EGFR-AF ZIMBABWEAN 34 mL/min/1.73m2 Critically low >=60 [facility] Comment on above: Performed By: #### B MP ####[facility] [address] [place], [place] [address]Dr. Davidson Saunders EGFR-NON AF ZIMBABWEAN 28 mL/min/1.73m2 Critically low >=60 [facility] Comment on above: Performed By: #### B MP ####[facility] [address] [place], [place] [address]Dr. Davidson Saunders Glucose [Mass/Vol] 112 mg/dL Critically high 74-106 [facility] Comment on above: Performed By: #### B MP ####[facility] [address] [place], [place] [address]Dr. Davidson Saunders Potassium [Moles/Vol] 4.1 mmol/L Normal 3.4-5.0 [facility] Comment on above: Performed By: #### B MP ####[facility] [address] [address]DrGina Saunders Sodium [Moles/Vol] 138 mmol/L Normal 137-145 [facility] Comment on above: Performed By: #### B MP ####[facility] [address] [address]Dr. Davidson Saunders Urea nitrogen [Mass/Vol] 26.0 mg/dL Critically high 7.0-18.0 [facility] Comment on above: Performed By: #### B MP ####[facility] [address] [address]DrGina Saunders Urea nitrogen/Creatinine [Mass ratio] 14.4 mg/mg Normal [facility] Comment on above: Performed By: #### B MP ####[facility] [address] [address]DrGina Saunders CBC AUTO DIFFon 08-13-2021 BASO # 0.1 103/ul Normal 0.0-0.1 [facility] Comment on above: Performed By: #### P OCGLUC #### [facility] [address] [address] [address] Davidson Saunders Basophils/100 WBC (Bld) 0.8 % Normal 0.2-2.0 [facility] Comment on above: Performed By: #### P OCGLUC #### [facility] [address] [address] [address] Davidson Saunders EO # 0.5 103/ul Normal 0.0-0.7 [facility] Comment on above: Performed By: #### P OCGLUC #### [facility] [address] [address] [address] Davidson Saunders Eosinophils/100 WBC (Bld) 5.4 % Normal 0.9-7.0 [facility] Comment on above: Performed By: #### P OCGLUC #### [facility] [address] [address] [address] Davidson Saunders Erythrocyte distribution width (RBC) [Ratio] 12.6 % Normal 11.0-15.0 [facility] Comment on above: Performed By: #### P OCGLUC #### [facility] [address] [address] [address] Davidson Saunders Hematocrit (Bld) [Volume fraction] 31.6 % Critically low 36.0-48.0 [facility] Comment on above: Performed By: #### P OCGLUC #### [facility] [address] [place] [address] Dr. Davidson Saunders Hemoglobin (Bld) [Mass/Vol] 10.0 g/dL Critically low 12.0-16.0 [facility] Comment on above: Performed By: #### P OCGLUC #### [facility] [address] [address] [address] Davidson Saunders IG # 0.04 10e3/ul Critically high 0.00-0.03 [facility] Comment on above: Performed By: #### P OCGLUC #### [facility] [address] [place] [address] Dr. Davidson Saunders IG % 0.5 % Normal 0.0-0.5 [facility] Comment on above: Performed By: #### P OCGLUC #### [facility] [address] [place] [address] Dr. Davidson Saunders LYMPH # 2.8 103/ul Normal 1.2-3.8 [facility] Comment on above: Performed By: #### P OCGLUC #### [facility] [address] [place] [address] Dr. Davidson Saunders Lymphocytes/100 WBC (Bld) 31.1 % Normal 20.5-60.0 [facility] Comment on above: Performed By: #### P OCGLUC #### [facility] [address] [place] [address] Dr. Davidson Saunders MANUAL DIFF REQ NO Normal [facility] Comment on above: Performed By: #### P OCGLUC #### [facility] [address] [place] [address] Dr. Davidson Saunders MCH (RBC) [Entitic mass] 28.6 pg Normal 26.7-34.0 [facility] Comment on above: Performed By: #### P OCGLUC #### [facility] [address] [address] [address] Davidson Saunders MCHC (RBC) [Mass/Vol] 31.6 g/dL Normal 29.9-35.2 [facility] Comment on above: Performed By: #### P OCGLUC #### [facility] [address] [address] [address] Davidson Saunders MCV (RBC) [Entitic vol] 90.3 fL Normal 81.0-99.0 [facility] Comment on above: Performed By: #### P OCGLUC #### [facility] [address] [address] [address] Davidson Saunders MONO # 0.7 103/ul Normal 0.3-0.8 [facility] Comment on above: Performed By: #### P OCGLUC #### [facility] [address] [place] [address] Dr. Davidson Saunders Monocytes/100 WBC (Bld) 7.5 % Normal 1.7-12.0 [facility] Comment on above: Performed By: #### P OCGLUC #### [facility] [address] [address] [address] Davidson Saunders NEUT # 4.9 103/ul Normal 1.4-6.5 [facility] Comment on above: Performed By: #### P OCGLUC #### [facility] [address] [place] [address] Dr. Davidson Saunders Neutrophils/100 WBC (Bld) 54.7 % Normal 43.0-75.0 [facility] Comment on above: Performed By: #### P OCGLUC #### [facility] [address] [address] [address] Davidson Saunders Platelet mean volume (Bld) [Entitic vol] 8.6 fL Critically low 9.5-13.5 [facility] Comment on above: Performed By: #### P OCGLUC #### [facility] [address] [place] [address] Dr. Davidson Saunders PLT 263 103/ul Normal 150-450 [facility] Comment on above: Performed By: #### P OCGLUC #### [facility] [address] [address] [address] Davidson Saunders RBC 3.50 106/ul Critically low 4.20-5.40 [facility] Comment on above: Performed By: #### P OCGLUC #### [facility] [address] [address] [address] Davidson Saunders WBC 8.9 103/ul Normal 4.0-11.0 [facility] Comment on above: Performed By: #### P OCGLUC #### [facility] [address] [address] [address] Davidson Saunders GLYCOHEMOGLOBIN A1Con 2021 ADA RECOMMENDATION ADA THERAPEUTIC TARGET 6.0 - 7.0 ACTION SUGGESTED > 7.0 Normal [facility] Comment on above: Performed By: #### A 1C #### [facility] [address] [place] [address] Dr. Davidson Saunders Glucose [Mass/Vol] 128 mg/dL Normal [facility] Comment on above: Performed By: #### A 1C #### [facility] [address] [place] [address] Dr. Davidson Saunders HbA1c (Bld) [Mass fraction] 6.1 % Critically high <=6.0 [facility] Comment on above: Performed By: #### A 1C #### [facility] [address] [place] [address] Dr. Davidson Saunders LIPID PROFILEon 08-13-2021 CHOL-HDL RATIO NORM SEE BELOW Normal [facility] Comment on above: Result Comment: 3.3 - 4.4 LOW RISK 4.4 - 7.1 AVERAGE RISK 7.1 - 11.0 MODERATE RISK >11.0 HIGH RISK Performed By: #### A 1C #### [facility] [address] [place] [address] Dr. Davidson Saunders Cholesterol [Mass/Vol] 139 mg/dL Normal <=200 [facility] Comment on above: Performed By: #### A 1C #### [facility] [address] [address] [address] Davidson Saunders Cholesterol in HDL [Mass/Vol] 47 mg/dL Normal 40-60 [facility] Comment on above: Performed By: #### A 1C #### [facility] [address] [address] [address] Davidson Saunders Cholesterol in LDL [Mass/Vol] 57.0 mg/dL Normal [facility] Comment on above: Performed By: #### A 1C #### [facility] [address] [address] [address] Davidson Saunders Cholesterol.total/Chol esterol in HDL [Mass ratio] 3.0 {ratio} Normal [facility] Comment on above: Performed By: #### A 1C #### [facility] [address] [place] [address] Dr. Davidson Saunders HDL NORMAL > or = 60 mg/dl - LO W CARDIOVASCULAR RISK <40 mg/dl - HIGH CARDIOVASCULAR RISK Normal [facility] Comment on above: Performed By: #### A 1C #### [facility] [address] [place] [address] Dr. Davidson Saunders LDL CALC NORMAL SEE BELOW Normal [facility] Comment on above: Result Comment: <100 mg/dl OPTIMAL 100 - 129 mg/dl NEAR OR ABOVE OPTIMAL 130 - 159 mg/dl BORDERLINE HIGH 160 - 189 mg/dl HIGH >190 mg/dl VERY HIGH Performed By: #### A 1C #### [facility] [address] [place] [address] Dr. Davidson Saunders Triglyceride [Mass/Vol] 175 mg/dL Critically high <=150 [facility] Comment on above: Performed By: #### A 1C #### [facility] [address] [place] [address] Dr. Davidson Saunders VLDL CALC 35.0 mg/dL Normal [facility] Comment on above: Performed By: #### A 1C #### [facility] [address] [place] [address] Dr. Davidson Saunders PROF 14(COMP METB)on 022 Albumin [Mass/Vol] 3.4 g/dL Normal 3.4-5.0 [facility] Comment on above: Performed By: #### A 1C #### [facility] [address] [place] [address] Dr. Davidson Saunders Albumin/Globulin [Mass ratio] 0.9 {ratio} Normal [facility] Comment on above: Performed By: #### A 1C #### [facility] [address] [place] [address] Dr. Davidson Saunders ALP [Catalytic activity/Vol] 104 U/L Normal 46-116 [facility] Comment on above: Performed By: #### A 1C #### [facility] [address] [place] [address] Dr. Davidson Saunders ALT [Catalytic activity/Vol] 21 U/L Normal 14-59 [facility] Comment on above: Performed By: #### A 1C #### [facility] [address] [place] [address] Dr. Davidson Saunders Anion gap [Moles/Vol] 13.1 mmol/L Normal [facility] Comment on above: Performed By: #### A 1C #### [facility] [address] [place] [address] Dr. Davidson Saunders AST [Catalytic activity/Vol] 12 U/L Critically low 15-37 [facility] Comment on above: Performed By: #### A 1C #### [facility] [address] [place] [address] Dr. Davidson Saunders Bilirubin [Mass/Vol] 0.3 mg/dL Normal 0.2-1.3 [facility] Comment on above: Performed By: #### A 1C #### [facility] [address] [place] [address] Dr. Davidson Saunders Calcium [Mass/Vol] 9.4 mg/dL Normal 8.5-10.1 [facility] Comment on above: Performed By: #### A 1C #### [facility] [address] [place] [address] Dr. Davidson Saunders Chloride [Moles/Vol] 108 mmol/L Critically high 98-107 [facility] Comment on above: Performed By: #### A 1C #### [facility] [address] [place] [address] Dr. Davidson Saunders CO2 [Moles/Vol] 26.4 mmol/L Normal 22.0-30.0 [facility] Comment on above: Performed By: #### A 1C #### [facility] [address] [address] [address] Davidson Saunders Creatinine [Mass/Vol] 1.59 mg/dL Critically high 0.52-1.04 [facility] Comment on above: Performed By: #### A 1C #### [facility] [address] [address] [address] Davidson Saunders EGFR-AF ZIMBABWEAN 39 mL/min/1.73m2 Critically low >=60 [facility] Comment on above: Performed By: #### A 1C #### [facility] [address] [address] [address] Davidson Saunders EGFR-NON AF ZIMBABWEAN 32 mL/min/1.73m2 Critically low >=60 [facility] Comment on above: Performed By: #### A 1C #### [facility] [address] [address] [address] Davidson Saunders Globulin (S) [Mass/Vol] 3.8 g/dL Normal [facility] Comment on above: Performed By: #### A 1C #### [facility] [address] [address] [address] Davidson Saunders Glucose [Mass/Vol] 86 mg/dL Normal 74-106 [facility] Comment on above: Performed By: #### A 1C #### [facility] [address] [address] [address] Davidson Saunders Potassium [Moles/Vol] 5.5 mmol/L Critically high 3.4-5.0 [facility] Comment on above: Performed By: #### A 1C #### [facility] [address] [address] [address] Davidson Saunders Protein [Mass/Vol] 7.2 g/dL Normal 6.1-8.2 [facility] Comment on above: Performed By: #### A 1C #### [facility] [address] [address] [address] Davidson Saunders Sodium [Moles/Vol] 142 mmol/L Normal 137-145 [facility] Comment on above: Performed By: #### A 1C #### [facility] [address] [place] [address] Dr. Davidson Saunders Urea nitrogen [Mass/Vol] 20.0 mg/dL Critically high 7.0-18.0 [facility] Comment on above: Performed By: #### A 1C #### [facility] [address] [place] [address] Dr. Davidson Saunders Urea nitrogen/Creatinine [Mass ratio] 12.6 mg/mg Normal [facility] Comment on above: Performed By: #### A 1C #### [facility] [address] [place] [address] Dr. Davidson Saunders CBC AUTO DIFFon 08-12-2021 BASO # 0.1 103/ul Normal 0.0-0.1 [facility] Comment on above: Performed By: #### C BC #### [facility] [address] [place] [address] Dr. Davidson Saunders Basophils/100 WBC (Bld) 0.7 % Normal 0.2-2.0 [facility] Comment on above: Performed By: #### C BC #### [facility] [address] [place] [address] Dr. Davidson Saunders EO # 0.3 103/ul Normal 0.0-0.7 [facility] Comment on above: Performed By: #### C BC #### [facility] [address] [place] [address] Dr. Davidson Saunders Eosinophils/100 WBC (Bld) 3.3 % Normal 0.9-7.0 [facility] Comment on above: Performed By: #### C BC #### [facility] [address] [place] [address] Dr. Davidson Saunders Erythrocyte distribution width (RBC) [Ratio] 13.0 % Normal 11.0-15.0 [facility] Comment on above: Performed By: #### C BC #### [facility] [address] [place] [address] Dr. Davidson Saunders Hematocrit (Bld) [Volume fraction] 30.2 % Critically low 36.0-48.0 [facility] Comment on above: Performed By: #### C BC #### [facility] [address] [place] [address] Dr. Davidson Saunders Hemoglobin (Bld) [Mass/Vol] 9.8 g/dL Critically low 12.0-16.0 [facility] Comment on above: Performed By: #### C BC #### [facility] [address] [place] [address] Dr. Davidson Saunders IG # 0.04 10e3/ul Critically high 0.00-0.03 [facility] Comment on above: Performed By: #### C BC #### [facility] [address] [place] [address] Dr. Davidson Saunders IG % 0.4 % Normal 0.0-0.5 [facility] Comment on above: Performed By: #### C BC #### [facility] [address] [place] [address] Dr. Davidson Saunders LYMPH # 2.9 103/ul Normal 1.2-3.8 [facility] Comment on above: Performed By: #### C BC #### [facility] [address] [place] [address] Dr. Davidson Saunders Lymphocytes/100 WBC (Bld) 31.0 % Normal 20.5-60.0 [facility] Comment on above: Performed By: #### C BC #### [facility] [address] [place] [address] Dr. Davidson Saunders MANUAL DIFF REQ NO Normal [facility] Comment on above: Performed By: #### C BC #### [facility] [address] [place] [address] Dr. Davidson Saunders MCH (RBC) [Entitic mass] 28.5 pg Normal 26.7-34.0 [facility] Comment on above: Performed By: #### C BC #### [facility] [address] [place] [address] Dr. Davidson Saunders MCHC (RBC) [Mass/Vol] 32.5 g/dL Normal 29.9-35.2 [facility] Comment on above: Performed By: #### C BC #### [facility] [address] [address] [address] Davidson Saunders MCV (RBC) [Entitic vol] 87.8 fL Normal 81.0-99.0 [facility] Comment on above: Performed By: #### C BC #### [facility] [address] [address] [address] Davidson Saunders MONO # 0.7 103/ul Normal 0.3-0.8 [facility] Comment on above: Performed By: #### C BC #### [facility] [address] [address] [address] Davidson Saunders Monocytes/100 WBC (Bld) 7.8 % Normal 1.7-12.0 [facility] Comment on above: Performed By: #### C BC #### [facility] [address] [address] [address] Davidson Saunders NEUT # 5.2 103/ul Normal 1.4-6.5 [facility] Comment on above: Performed By: #### C BC #### [facility] [address] [address] [address] Davidson Saunders Neutrophils/100 WBC (Bld) 56.8 % Normal 43.0-75.0 [facility] Comment on above: Performed By: #### C BC #### [facility] [address] [address] [address] Davidson Saunders Platelet mean volume (Bld) [Entitic vol] 10.2 fL Normal 9.5-13.5 [facility] Comment on above: Performed By: #### C BC #### [facility] [address] [address] [address] Davidson Saunders PLT 227 103/ul Normal 150-450 [facility] Comment on above: Performed By: #### C BC #### [facility] [address] [address] [address] Davidson Saunders RBC 3.44 106/ul Critically low 4.20-5.40 [facility] Comment on above: Performed By: #### C BC #### [facility] [address] [place], [place] [address] Dr. Davidson Saunders WBC 9.2 103/ul Normal 4.0-11.0 [facility] Comment on above: Performed By: #### C BC #### [facility] [address] [place], [place] [address] Dr. Davidson Saunders ECHOCARDIO M/2D COMPLETEon 0 08-12-2021 ECHOCARDIO M/2D COMPLETE Patient: ELEANOR MCCLAIN Exam Date: 08/12/2021 : 1950 Gender:F Ordering : DR. ALIYAH ROACH . Admission #: [id number] Family : DR GRAYSON HERNANDEZ . Order #: [id number] CLICK HERE TO VIEW EXAM ECHOCARDIOGRAM REPORT [...] Mcfadden M.D. on 08/12/2021 at 17:13 Normal [facility] MRA HEAD WO CONon 08-12-2021 MRA HEAD WO CON EXAMINATION: MRA HEA D WO CON HISTORY: H/O: TIA COMPARISON: None. TECHNIQUE: MR angiogram of the head was obtained with 3D icei-gc-fphrwq technique. Maximum intensity projection images of the [...] by: MANJEET GREENFIELD Date: 2021-08-12 15:29 Normal [facility] MRA NECK WO CONon 08-12-2021 MRA NECK WO CON EXAMINATION: MRA NEC K WO CON HISTORY: H/O: TIA. Dizziness, history of stroke. COMPARISON: None. TECHNIQUE: MR angiogram of the neck was obtained with axial 2-D and 3-D rpfs-rn-gljbhd technique. Maximum intensity projection images were obtained. FINDINGS: Aortic arch is not included in the [id number]-[id number]. Narrowing of the origin of the right [...] MANJEET GREENFIELD Date: 2021-08-12 15:29 Normal [facility] MRI BRAIN WO CONon 2 MRI BRAIN [...] ABHI BECERRIL Date: 2021-08-12 15:22 Normal [facility] PROF 14(COMP METB)on 022 Albumin [Mass/Vol] 3.4 g/dL Normal 3.4-5.0 [facility] Comment on above: Performed By: #### C MP ####[facility] [address] [address]DrGina Saunders Albumin/Globulin [Mass ratio] 1.0 {ratio} Normal [facility] Comment on above: Performed By: #### C MP ####[facility] [address] [address]Dr. Davidson Saunders ALP [Catalytic activity/Vol] 101 U/L Normal 46-116 [facility] Comment on above: Performed By: #### C MP ####[facility] [address] [address]Dr. Davidson Saunders ALT [Catalytic activity/Vol] 21 U/L Normal 14-59 [facility] Comment on above: Performed By: #### C MP ####[facility] [address] [address]Dr. Davidson Saunders Anion gap [Moles/Vol] 12.6 mmol/L Normal [facility] Comment on above: Performed By: #### C MP ####[facility] [address] [place], [place] [address]Dr. Davidson Saunders AST [Catalytic activity/Vol] 18 U/L Normal 15-37 [facility] Comment on above: Performed By: #### C MP ####[facility] [address] [place], [place] [address]Dr. Davidson Chip Bilirubin [Mass/Vol] 0.2 mg/dL Normal 0.2-1.3 [facility] Comment on above: Performed By: #### C MP ####[facility] [address] [place], [place] [address]Dr. Davidson Chip Calcium [Mass/Vol] 9.0 mg/dL Normal 8.5-10.1 [facility] Comment on above: Performed By: #### C MP ####[facility] [address] [place], [place] [address]Dr. Davidson Chip Chloride [Moles/Vol] 107 mmol/L Normal 98-107 [facility] Comment on above: Performed By: #### C MP ####[facility] [address] [place], [place] [address]Dr. Davidson Chip CO2 [Moles/Vol] 27.6 mmol/L Normal 22.0-30.0 [facility] Comment on above: Performed By: #### C MP ####[facility] [address] [place], [place] [id number]. Davidson Chip Creatinine [Mass/Vol] 1.61 mg/dL Critically high 0.52-1.04 [facility] Comment on above: Performed By: #### C MP ####[facility] [address] [address]Dr. Davidson Saunders EGFR-AF ZIMBABWEAN 38 mL/min/1.73m2 Critically low >=60 [facility] Comment on above: Performed By: #### C MP ####[facility] [address] [address]Dr. Davidson Saunders EGFR-NON AF ZIMBABWEAN 31 mL/min/1.73m2 Critically low >=60 [facility] Comment on above: Performed By: #### C MP ####[facility] [address] [place], [place] [address]Dr. Davidson Saunders Globulin (S) [Mass/Vol] 3.5 g/dL Normal [facility] Comment on above: Performed By: #### C MP ####[facility] [address] [place], [place] [address]Dr. Davidson Saunders Glucose [Mass/Vol] 93 mg/dL Normal 74-106 [facility] Comment on above: Performed By: #### C MP ####[facility] [address] [place], [place] [address]Dr. Davidson Saunders Potassium [Moles/Vol] 5.2 mmol/L Critically high 3.4-5.0 [facility] Comment on above: Performed By: #### C MP ####[facility] [address] [place], [place] [address]Dr. Davidson Saunders Protein [Mass/Vol] 6.9 g/dL Normal 6.1-8.2 [facility] Comment on above: Performed By: #### C MP ####[facility] [address] [place], [place] [address]Dr. Davidson Saunders Sodium [Moles/Vol] 142 mmol/L Normal 137-145 [facility] Comment on above: Performed By: #### C MP ####[facility] [address] [place], [place] [address]Dr. Davidson Saunders Urea nitrogen [Mass/Vol] 24.0 mg/dL Critically high 7.0-18.0 [facility] Comment on above: Performed By: #### C MP ####[facility] [address] [place], [place] [address]IzGina Saunders Urea nitrogen/Creatinine [Mass ratio] 14.9 mg/mg Normal [facility] Comment on above: Performed By: #### C MP ####[facility] [address] [place], [place] [address]Qv. Davidson Saunders US CAROTID ART BILon 022 [...] ABHI BECERRIL Date: 2021-08-12 13:09 Normal [facility] CBC AUTO DIFFon 08-11-2021 BASO # 0.1 103/ul Normal 0.0-0.1 [facility] Comment on above: Performed By: #### A 1C #### [facility] [address] [place] [address] Dr. Davidson Saunders Basophils/100 WBC (Bld) 0.9 % Normal 0.2-2.0 [facility] Comment on above: Performed By: #### A 1C #### [facility] [address] [place] [address] Dr. Davidson Saunders EO # 0.3 103/ul Normal 0.0-0.7 [facility] Comment on above: Performed By: #### A 1C #### [facility] [address] [place] [address] Dr. Davidson Saunders Eosinophils/100 WBC (Bld) 3.1 % Normal 0.9-7.0 [facility] Comment on above: Performed By: #### A 1C #### [facility] [address] [place] [address] Dr. Davidson Saunders Erythrocyte distribution width (RBC) [Ratio] 12.8 % Normal 11.0-15.0 [facility] Comment on above: Performed By: #### A 1C #### [facility] [address] [place] [address] Dr. Davidson Saunders Hematocrit (Bld) [Volume fraction] 32.8 % Critically low 36.0-48.0 [facility] Comment on above: Performed By: #### A 1C #### [facility] [address] [place] [address] Dr. Davidson Saunders Hemoglobin (Bld) [Mass/Vol] 11.1 g/dL Critically low 12.0-16.0 [facility] Comment on above: Performed By: #### A 1C #### [facility] [address] [place] [address] Dr. Davidson Saunders IG # 0.06 10e3/ul Critically high 0.00-0.03 [facility] Comment on above: Performed By: #### A 1C #### [facility] [address] [place] [address] Dr. Davidson Saunders IG % 0.5 % Normal 0.0-0.5 [facility] Comment on above: Performed By: #### A 1C #### [facility] [address] [place] [address] Dr. Davidson Saunders LYMPH # 2.6 103/ul Normal 1.2-3.8 [facility] Comment on above: Performed By: #### A 1C #### [facility] [address] [place] [address] Dr. Davidson Saunders Lymphocytes/100 WBC (Bld) 23.6 % Normal 20.5-60.0 [facility] Comment on above: Performed By: #### A 1C #### [facility] [address] [address] [address] Davidson Saunders MANUAL DIFF REQ NO Normal [facility] Comment on above: Performed By: #### A 1C #### [facility] [address] [place] [address] Dr. Davidson Saunders MCH (RBC) [Entitic mass] 29.2 pg Normal 26.7-34.0 [facility] Comment on above: Performed By: #### A 1C #### [facility] [address] [place] [address] Dr. Davidson Saunders MCHC (RBC) [Mass/Vol] 33.8 g/dL Normal 29.9-35.2 [facility] Comment on above: Performed By: #### A 1C #### [facility] [address] [place] [address] Dr. Davidson Saunders MCV (RBC) [Entitic vol] 86.3 fL Normal 81.0-99.0 [facility] Comment on above: Performed By: #### A 1C #### [facility] [address] [place] [address] Dr. Davidson Saunders MONO # 0.9 103/ul Critically high 0.3-0.8 [facility] Comment on above: Performed By: #### A 1C #### [facility] [address] [place] [address] Dr. Davidson Saunders Monocytes/100 WBC (Bld) 7.9 % Normal 1.7-12.0 [facility] Comment on above: Performed By: #### A 1C #### [facility] [address] [place] [address] Dr. Davidson Saunders NEUT # 7.1 103/ul Critically high 1.4-6.5 [facility] Comment on above: Performed By: #### A 1C #### [facility] [address] [address] [address] Davidson Saunders Neutrophils/100 WBC (Bld) 64.0 % Normal 43.0-75.0 [facility] Comment on above: Performed By: #### A 1C #### [facility] [address] [address] [address] Davidson Saunders Platelet mean volume (Bld) [Entitic vol] 8.7 fL Critically low 9.5-13.5 [facility] Comment on above: Performed By: #### A 1C #### [facility] [address] [address] [address] Davidson Saunders PLT 312 103/ul Normal 150-450 [facility] Comment on above: Performed By: #### A 1C #### [facility] [address] [address] [address] Davidson Saunders RBC 3.80 106/ul Critically low 4.20-5.40 [facility] Comment on above: Performed By: #### A 1C #### [facility] [address] [address] [address] Davidson Saunders WBC 11.1 103/ul Critically high 4.0-11.0 [facility] Comment on above: Performed By: #### A 1C #### [facility] [address] [address] [address] STROKE HEAD WOon [...] MARTHA SAHNI Date: 2021-08-11 16:43 Normal [facility] CULTURE URINEon 08-11-2021 CULTURE URINE Culture Observations : MODERATE GROWTH OF MIXED GENITAL ROSEANNA. NO POTENTIAL PATHOGENS SEEN. Normal [facility] Comment on above: Performed By: #### U RCX #### [facility] [address], [place] [address] Dr. Davidson Saunders Covid-19 PCR ([facility])on 07-22 SARS-CoV-2 (COVID-19) RNA SAE+probe Ql (Unsp spec) Not detected Normal NOT DETECTED [facility] Comment on above: Result Comment: This test is not yet approved or cleared by the [place] FDA. When there are no FDA-approved or cleared tests available, and other criteria are met, FDA can make tests available under an emergency access mechanism called an Emergency Use Authorization (EUA). The EUA for this test is supported by the [place] of Health and Human Service's (HHS's) declaration [...] with SARS-CoV-2. Performed By: #### C VDTBH ####[facility] [id number] [place], [place] [address]VwDr. Davidson Saunders ER URINE PROFILEon 2 Bilirubin Ql (U) Negative Normal NEGATIVE The [facility] Comment on above: Performed By: #### A 1C #### [facility] [address] [place] [address] Dr. Davidson Saunders Clarity (U) CLEAR Normal CLEAR [facility] Comment on above: Performed By: #### A 1C #### [facility] [address] [place] [address] Dr. Davidson Saunders Color (U) LT. YELLOW Normal YELLOW [facility] Comment on above: Performed By: #### A 1C #### [facility] [address] [place] [address] Dr. Davidson Saunders ERUAHD A micrscopic examination will be performed if indicated. Normal [facility] Comment on above: Performed By: #### A 1C #### [facility] [address] [place] [address] Dr. Davidson Saunders Glucose Ql (U) Negative Normal NEGATIVE [facility] Comment on above: Performed By: #### A 1C #### [facility] [address] [place] [address] Dr. Davidson Saunders Hemoglobin Ql (U) Negative Normal NEGATIVE [facility] Comment on above: Performed By: #### A 1C #### [facility] [address] [place] [address] Dr. Davidson Saunders Ketones Ql (U) Negative Normal NEGATIVE [facility] Comment on above: Performed By: #### A 1C #### [facility] [address] [place] [address] Dr. Davidson Saunders LEUKOCYTES SMALL Abnormal NEGATIVE [facility] Comment on above: Performed By: #### A 1C #### [facility] [address] [place] [address] Dr. Davidson Saunders Nitrite Ql (U) Negative Normal NEGATIVE [facility] Comment on above: Performed By: #### A 1C #### [facility] [address] [place] [address] Dr. Davidson Saunders pH (U) 7.0 [pH] Normal 5-9 [facility] Comment on above: Performed By: #### A 1C #### [facility] [address] [place] [address] Dr. Davidson Saunders SPEC GRAVITY 1.010 Normal 1.005-<=1.025 [facility] Comment on above: Performed By: #### A 1C #### [facility] [address] [place] [address] Dr. Davidson Saunders UA PROTEIN Negative Normal NEGATIVE/ TRACE [facility] Comment on above: Performed By: #### A 1C #### [facility] [address] [place] [address] Dr. Davidson Saunders UR MICRO IND INDICATED Normal [facility] Comment on above: Performed By: #### A 1C #### [facility] [address] [place] [address] Dr. Davidson Saunders Urobilinogen Qn (U) 0.2 {Balaji'U}/dL Normal 0.2 - 1. 0 [facility] Comment on above: Performed By: #### A 1C #### [facility] [address] [place] [address] Dr. Davidson Saunders LACTATE/LACTIC ACIDon 2021 Lactate [Moles/Vol] 1.3 mmol/L Normal 0.7-2.0 [facility] Comment on above: Performed By: #### P OCGLUC #### [facility] [address] [place] [address] Dr. Davidson Saunders PROF 14(COMP METB)on 022 Albumin [Mass/Vol] 4.0 g/dL Normal 3.4-5.0 [facility] Comment on above: Performed By: #### P OCGLUC #### [facility] [address] [place] [address] Dr. Davidson Saunders Albumin/Globulin [Mass ratio] 1.0 {ratio} Normal [facility] Comment on above: Performed By: #### P OCGLUC #### [facility] [address] [place] [address] Dr. Davidson Saunders ALP [Catalytic activity/Vol] 117 U/L Critically high 46-116 [facility] Comment on above: Performed By: #### P OCGLUC #### [facility] [address] [place] [address] Dr. Davidson Saunders ALT [Catalytic activity/Vol] 26 U/L Normal 14-59 [facility] Comment on above: Performed By: #### P OCGLUC #### [facility] [address] [place] [address] [address] Davidson Saunders Anion gap [Moles/Vol] 12.5 mmol/L Normal [facility] Comment on above: Performed By: #### P OCGLUC #### [facility] [address] [address] [address] Davidson Saunders AST [Catalytic activity/Vol] 15 U/L Normal 15-37 [facility] Comment on above: Performed By: #### P OCGLUC #### [facility] [address] [address] [address] Davidson Saunders Bilirubin [Mass/Vol] 0.3 mg/dL Normal 0.2-1.3 [facility] Comment on above: Performed By: #### P OCGLUC #### [facility] [address] [address] [address] Davidson Saunders Calcium [Mass/Vol] 9.1 mg/dL Normal 8.5-10.1 [facility] Comment on above: Performed By: #### P OCGLUC #### [facility] [address] [address] [address] Davidson Saunders Chloride [Moles/Vol] 102 mmol/L Normal 98-107 [facility] Comment on above: Performed By: #### P OCGLUC #### [facility] [address] [address] [address] Davidson Saunders CO2 [Moles/Vol] 28.3 mmol/L Normal 22.0-30.0 [facility] Comment on above: Performed By: #### P OCGLUC #### [facility] [address] [address] [address] Davidson Saunders Creatinine [Mass/Vol] 1.95 mg/dL Critically high 0.52-1.04 [facility] Comment on above: Performed By: #### P OCGLUC #### [facility] [address] [address] [address] Davidson Saunders EGFR-AF [place]AN 31 mL/min/1.73m2 Critically low >=60 [facility] Comment on above: Performed By: #### P OCGLUC #### [facility] [address] [address] [address] Davidson Saunders EGFR-NON AF [place]AN 25 mL/min/1.73m2 Critically low >=60 [facility] Comment on above: Performed By: #### P OCGLUC #### [facility] [address] [address] [address] Davidson Saunders Globulin (S) [Mass/Vol] 3.9 g/dL Normal [facility] Comment on above: Performed By: #### P OCGLUC #### [facility] [address] [address] [address] Davidson Saunders Glucose [Mass/Vol] 83 mg/dL Normal 74-106 [facility] Comment on above: Performed By: #### P OCGLUC #### [facility] [address] [address] [address] Davidson Saunders Potassium [Moles/Vol] 4.8 mmol/L Normal 3.4-5.0 [facility] Comment on above: Performed By: #### P OCGLUC #### [facility] [address] [address] [address] Davidson Saunders Protein [Mass/Vol] 7.9 g/dL Normal 6.1-8.2 [facility] Comment on above: Performed By: #### P OCGLUC #### [facility] [address] [address] [address] Davidson Saunders Sodium [Moles/Vol] 138 mmol/L Normal 137-145 [facility] Comment on above: Performed By: #### P OCGLUC #### [facility] [address] [address] [address] Davidson Saunders Urea nitrogen [Mass/Vol] 25.0 mg/dL Critically high 7.0-18.0 [facility] Comment on above: Performed By: #### P OCGLUC #### [facility] [address] [address] [address] Davidson Saunders Urea nitrogen/Creatinine [Mass ratio] 12.8 mg/mg Normal [facility] Comment on above: Performed By: #### P OCGLUC #### [facility] [address] [address] [address] Davidson Saunders PROTIMEon 08-11-2021 INR Coag (PPP) [Relative time] 0.95 {INR} Normal [facility] Comment on above: Performed By: #### P OCGLUC #### [facility] [address] [place] [address] Dr. Davidson Saunders INR GUIDELINES SEE BELOW Normal [facility] Comment on above: Result Comment: CAMILLE RED INR: 2.0 - 3.0 CONDITIONS NOT LISTED BELOW 2.5 - 3.5 FOR PROSTHETIC HEART VALVE REPLACEMENT 2.5 - 3.5 RECURRENT THROMBOSIS Performed By: #### P OCGLUC #### [facility] [address] [place] [address] Dr. Davidson Saunders PT Coag (PPP) [Time] 10.3 s Normal 9.0-11.6 [facility] Comment on above: Performed By: #### P OCGLUC #### [facility] [address] [place] [address] Dr. Davidson Saunders PTTon 08-11-2021 aPTT Coag (Bld) [Time] 24.8 s Normal 22.3-36.2 [facility] Comment on above: Performed By: #### P OCGLUC #### [facility] [address] [place] [address] Dr. Davidson Saunders TROPONIN, HIGH SENSITIVITYon 08-11-2021 HSTROP 14.1 pg/mL Normal 4.0-35.5 [facility] Comment on above: Result Comment: CUT- OFF POINTS HAVE BEEN ESTABLISHED BASED ON THE FOURTH UNIVERSAL DEFINITIONS OF MYOCARDIAL INFARCTION. THE UPPER REFERENCE LIMIT (URL) OF TROPONIN, DEFINED THE 99TH PERCENTILE OF cTnI DISTRIBUTION IN A REFERENCE POPULATION, HAS BEEN CONFIRMED THE DECISION THRESHOLD FOR NE DIAGNOSIS. Performed By: #### P OCGLUC #### [facility] [address] [place] [address] Dr. Davidson Saunders TSHon 08-11-2021 TSH 0.082 uIU/mL Critically low 0.470-4.680 [facility] Comment on above: Performed By: #### T SH #### [facility] [address] [place] [address] Dr. Davidson Saunders TSH RANGE SEE BELOW Normal [facility] Comment on above: Result Comment: <0.3 4 UIU/ml HYPERTHYROID 0.34-5.60 UIU/ml EUTHYROID >5.60 UIU/ml HYPOTHYROID Performed By: #### T SH #### [facility] [address] [place] [address] Dr. Davidson Saunders URINE MICROSCOPIC ONLYon BACTERIA NONE SEEN Normal NONE SEEN [facility] Comment on above: Performed By: #### A 1C #### [facility] [address] [place] [address] Dr. Davidson Saunders Bacteria identified Cx Nom (U) INDICATED Normal [facility] Comment on above: Performed By: #### A 1C #### [facility] [address] [place] [address] Dr. Davidson Saunders CAST NONE SEEN Normal NONE SEEN [facility] Comment on above: Performed By: #### A 1C #### [facility] [address] [place] [address] Dr. Davidson Saunders Crystals LM Nom (Urine sed) NONE SEEN Normal NONE SEEN [facility] Comment on above: Performed By: #### A 1C #### [facility] [address] [place] [address] Dr. Davidson Saunders Epithelial cells LM Ql (Urine sed) FEW Abnormal NONE SEEN /RARE [facility] Comment on above: Performed By: #### A 1C #### [facility] [address] [place] [address] Dr. Davidson Saunders MUCOUS NONE SEEN Normal NONE SEEN [facility] Comment on above: Performed By: #### A 1C #### [facility] [address] [place] [address] Dr. Davidson Saunders RBC NONE SEEN Abnormal 0-2 [facility] Comment on above: Performed By: #### A 1C #### [facility] [address] [place] [address] Dr. Davidson Saunders WBC 2-5 Abnormal NONE SEEN [facility] Comment on above: Performed By: #### A 1C #### [facility] [address], [place] [address] Dr. Davidson Saunders XR CHEST 1 Von [...] ABHI BECERRIL Date: 2021-08-11 16:39 Normal [facility] SCREENING MAMMOGRAM W/ALEX, BILATERAL*on 05-26-2021 SCREENING MAMMOGRAM [...] VERY IMPORTANT TO YOUR HEALTH. THE CURRENT [place] GUIDELINES RECOMMENDS ANNUAL MAMMOGRAPHY BEGINNING AT AGE 40. THIS FACILITY USES A REMINDER SYSTEM TO ENSURE ALL PATIENTS RECEIVE REMINDER NOTIFICATIONS AT THE APPROPRIATE TIME BASED ON THE RECOMMENDATIONS OF THIS EXAM. Report reported and signed by Shant Altman on 05/27/2021 0934 Normal [facility] Report Manager XR Bone Density (DEXA)on XR Bone Density (DEXA) EXAM: DUAL FEMUR BONE DENSITY FINDINGS: RegionBMDYoung-AdultA ge-Matched Total(g/cm2)(%)T-Scor e(%)Z-Score Mean0.57986 -1.4110 0.6 Impression: The mean BMD and [...] BONE DENSITY FINDINGS: RegionBMDYoung-AdultA ge-Matched Total(g/cm2)(%)T-Scor e(%)Z-Score L1-[id number] 1.03654.1 Impression: The mean BMD and corresponding T-score [...] by Shant Altman on 05/26/2021 1530 Normal [facility] Report Manager APTTon 07-24-2019 aPTT Coag (Bld) [Time] 37.2 s High 20.5-30.5 [facility] Comment on above: Performed By: #### C DP, PFA, CP, GLYHGB #### [facility] [employer] [facility] [id number] Job Coach/Job Developer: Savage Jacob MD aPTT Coag (Bld) [Time] 37.2 s High [facility], [place] Basic Metabolic Panelon Anion gap [Moles/Vol] 11 mmol/L 9 - 17 mmol/L [place], [place] Bun/Cre Ratio NOT REPORTED [place], [place] Calcium [Mass/Vol] 8.4 mg/dL Low 8.6 - 10. 4 mg/dL [place] Chloride [Moles/Vol] 104 mmol/L 98 - 10 7 mmol/L [place] CO2 [Moles/Vol] 26 mmol/L 20 - 31 mmol/L [place] Creatinine [Mass/Vol] 1.21 mg/dL High 0.5 - 0.9 mg/dL [place] GFR 53 mL/min Low >60 [facility], [place] GFR Comment [place] GFR Non- 44 mL/min Low >60 [place] GFR Staging NOT REPORTED [place] Glucose [Mass/Vol] 75 mg/dL 70 - 99 mg/dL [place], [place] Interpretation and review of laboratory results Abnormal [place] Potassium [Moles/Vol] 4.1 mmol/L 3.7 - 5.3 mmol/L [place] Sodium [Moles/Vol] 141 mmol/L 135 - 144 mmol/L [place] Urea nitrogen [Mass/Vol] 26 mg/dL High 8 - 23 mg/dL [place] Basic Metabolic Profon 07-23 (cont.) Normal [facility] Comment on above: Result Comment: Aver age GFR for 70 or more years old: 75 mL/min/1.73sq m Chronic Kidney Disease: <60 mL/min/1.73sq m Kidney failure: <15 mL/min/1.73sq m eGFR calculated using average adult body mass. Additional eGFR calculator available at: http://www.Cognea/multiple_crcl_2012.htm Performed By: #### C DP, PFA, CP, GLYHGB #### [employer] [address] [place] [id number] Job Coach/Job Developer: Savage Jacob MD Anion gap [Moles/Vol] 11 mmol/L Normal 9-17 [facility] Comment on above: Performed By: #### C DP, PFA, CP, GLYHGB #### [facility] [address] [place] [address] Job Coach/Job Developer: Savage Jacob MD Calcium [Mass/Vol] 8.4 mg/dL Low 8.6-10.4 [facility] Comment on above: Performed By: #### C DP, PFA, CP, GLYHGB #### [facility] [address] [place] [id number] Job Coach/Job Developer: Savage Jacob MD Chloride [Moles/Vol] 104 mmol/L Normal 98-107 [facility] Comment on above: Performed By: #### C DP, PFA, CP, GLYHGB #### [facility] [address] [place] [address] Job Coach/Job Developer: Savage Jacob MD CO2 [Moles/Vol] 26 mmol/L Normal 20-31 [facility] Comment on above: Performed By: #### C DP, PFA, CP, GLYHGB #### [address] [address] Job Coach/Job Developer: Savage Jacob MD Creatinine [Mass/Vol] 1.21 mg/dL High 0.50-0.90 [facility] Comment on above: Performed By: #### C DP, PFA, CP, GLYHGB #### [address] [address] Job Coach/Job Developer: Savage Jacob MD GFR, Amer 53 mL/min Low >60 [facility] Comment on above: Performed By: #### C DP, PFA, CP, GLYHGB #### [address] [address] Job Coach/Job Developer: Savage Jacob MD GFR,non Amer 44 mL/min Low >60 [facility] Comment on above: Performed By: #### C DP, PFA, CP, GLYHGB #### [address] [address] Job Coach/Job Developer: Savage Jacob MD Glucose [Mass/Vol] 75 mg/dL Normal 70-99 [facility] Comment on above: Performed By: #### C DP, PFA, CP, GLYHGB #### [address] [address] Job Coach/Job Developer: Savage Jacob MD Potassium [Moles/Vol] 4.1 mmol/L Normal 3.7-5.3 [facility] Comment on above: Performed By: #### C DP, PFA, CP, GLYHGB #### [address] [address] Job Coach/Job Developer: Savage Jacob MD Sodium [Moles/Vol] 141 mmol/L Normal 135-144 [facility] Comment on above: Performed By: #### C DP, PFA, CP, GLYHGB #### [facility] [employer] [address] [place] [address] Job Coach/Job Developer: Savage Jacob MD Urea nitrogen [Mass/Vol] 26 mg/dL High 8- [facility] Comment on above: Performed By: #### C DP, PFA, CP, GLYHGB #### [address] [address] Job Coach/Job Developer: Savage Jacob MD BUN/CRE Ratio NOT REPORTED Normal - [facility] Comment on above: Performed By: #### C DP, PFA, CP, GLYHGB #### [facility] [employer] [address] [place] [address] Job Coach/Job Developer: Savage Jacob MD Staging: NOT REPORTED Normal [facility] Comment on above: Performed By: #### C DP, PFA, CP, GLYHGB #### [address] [address] Job Coach/Job Developer: Savage Jacob MD CBCon 07-24-2019 Erythrocyte distribution width (RBC) [Ratio] 15.4 % High 11.8-14.4 [facility] Comment on above: Performed By: #### C DP, PFA, CP, GLYHGB #### [facility] [employer] [address] [place] [address] Job Coach/Job Developer: Savage Jacob MD Hematocrit (Bld) [Volume fraction] 29.2 % Low 36.3-47.1 [facility] Comment on above: Performed By: #### C DP, PFA, CP, GLYHGB #### [facility] [employer] [address] [place] [address] Job Coach/Job Developer: Savage Jacob MD Hemoglobin (Bld) [Mass/Vol] 8.4 g/dL Low 11.9-15.1 [facility] Comment on above: Performed By: #### C DP, PFA, CP, GLYHGB #### [facility] [employer] [address] [place] [address] Job Coach/Job Developer: Savage Jacob MD MCH (RBC) [Entitic mass] 28.8 pg Normal 25.2-33.5 [facility] Comment on above: Performed By: #### C DP, PFA, CP, GLYHGB #### [address] [address] Job Coach/Job Developer: Savage Jacob MD MCHC (RBC) [Mass/Vol] 28.8 g/dL Normal 28.4-34.8 [facility] Comment on above: Performed By: #### C DP, PFA, CP, GLYHGB #### [address] [address] Job Coach/Job Developer: Savage Jacob MD MCV (RBC) [Entitic vol] 100.0 fL Normal 82.6-102.9 [facility] Comment on above: Performed By: #### C DP, PFA, CP, GLYHGB #### [place] [address] Job Coach/Job Developer: Savage Jacob MD NRBC Automated 0.0 per 100 WBC Normal 0.0 [facility] Comment on above: Performed By: #### C DP, PFA, CP, GLYHGB #### [place] [address] Job Coach/Job Developer: Savage Jacob MD Platelet mean volume (Bld) [Entitic vol] 9.7 fL Normal 8.1-13.5 [facility] Comment on above: Performed By: #### C DP, PFA, CP, GLYHGB #### [place] [address] Job Coach/Job Developer: Savage Jacob MD Platelets (Bld) [#/Vol] 207 10*3/uL Normal 138-453 [facility] Comment on above: Performed By: #### C DP, PFA, CP, GLYHGB #### [address] [place] [phone] Job Coach/Job Developer: Savage Jacob MD RBC (Bld) [#/Vol] 2.92 10*6/uL Low 3.95-5.11 [facility] Comment on above: Performed By: #### C DP, PFA, CP, GLYHGB #### [facility] [address] [place], [place] [phone] Job Coach/Job Developer: Savage Jacob MD WBC (Bld) [#/Vol] 7.8 10*3/uL Normal 3.5-11.3 [facility] Comment on above: Performed By: #### C DP, PFA, CP, GLYHGB #### [facility] [employer] [address] [place], [place] [phone] Job Coach/Job Developer: Savage Jacob MD Erythrocyte distribution width (RBC) [Ratio] 15.4 % High 11.8 - 14.4 % [place] Hematocrit (Bld) [Volume fraction] 29.2 % Low 36.3 - 47.1 % [place] Hemoglobin (Bld) [Mass/Vol] 8.4 g/dL Low 11.9 - 15.1 g/dL [place] Interpretation and review of laboratory results Abnormal [place] MCH (RBC) [Entitic mass] 28.8 pg 25.2 - 33.5 pg [place] MCHC (RBC) [Mass/Vol] 28.8 g/dL 28.4 - 34.8 g/dL [place] MCV (RBC) [Entitic vol] 100.0 fL 82.6 - 102.9 fL [place] Platelet mean volume (Bld) [Entitic vol] 9.7 fL 8.1 - 13.5 fL [place], [place] Platelets (Bld) [#/Vol] 207 10*3/uL [place] RBC (Bld) [#/Vol] 2.92 10*6/uL Low 3.95 - 5.1 1 m/uL [place] WBC (Bld) [#/Vol] 0.0 10*3/uL 0.0 per 10 0 WBC [place] WBC (Bld) [#/Vol] 7.8 10*3/uL [place] EKG 12 Leadon 07-24-2019 Atrial Rate 62 BPM [place] P [place] 46 degrees [facility], [place] P-R Interval 158 ms [facility], [place] Q-T Interval 408 ms [facility], [place] QRS Duration 86 ms [facility], [place] QTc Calculation (Bazett) 414 ms [place], [place] R [place] 31 degrees [facility], [place] T [place] 52 degrees [place] Ventricular Rate 62 BPM [facility], [facility], [place], [place] Magnesiumon 07-24-2019 Magnesium [Mass/Vol] 2.4 mg/dL Normal 1.6-2.6 [facility] Comment on above: Performed By: #### C DP, PFA, CP, GLYHGB #### [facility] [address] [place] [id number] Job Coach/Job Developer: Savage Jacob MD Magnesium [Mass/Vol] 2.4 mg/dL 1.6 - 2 .6 mg/dL [place] Otheron 07-24-2019 Interpretation and review of laboratory results Abnormal [place] POC Glucose Fingerstickon POC Glucose 103 mg/dL 65 - 105 mg/dL [place] POC Glucose 72 mg/dL 65 - 105 mg/dL [place] PTon 07-24-2019 INR Coag (PPP) [Relative time] 3.0 {INR} Normal [facility] Comment on above: Result Comment: Therapeutic Range: Moderate Anticoagulant Intensity: INR = 2.0-3.0 High Anticoagulant Intensity: INR = 2.5-3.5 Performed By: #### C DP, PFA, CP, GLYHGB #### [employer] [address] [place] [id number] Job Coach/Job Developer: Savage Jacob MD PT Coag (PPP) [Time] 29.8 s High 9.0-12.0 [facility] Comment on above: Performed By: #### C DP, PFA, CP, GLYHGB #### [facility] [employer] [address] [place] [phone] Job Coach/Job Developer: Savage Jacob MD Protime-INRon 07-24-2019 INR Coag (PPP) [Relative time] 3.0 {INR} [place] PT Coag (PPP) [Time] 29.8 s High [place] APTTon 07-23-2019 aPTT Coag (Bld) [Time] 67.2 s High 20.5-30.5 [facility] Comment on above: Performed By: #### C DP, PFA, CP, GLYHGB #### [facility] [employer] [address] [place] [id number] Job Coach/Job Developer: Savage Jacob MD aPTT Coag (Bld) [Time] 67.2 s High [place], [place] Basic Metab w/rfx MGon 07-22 (cont.) Normal [facility] Comment on above: Result Comment: Aver age GFR for 70 or more years old: 75 mL/min/1.73sq m Chronic Kidney Disease: <60 mL/min/1.73sq m Kidney failure: <15 mL/min/1.73sq m eGFR calculated using average adult body mass. Additional eGFR calculator available at: http://www.MFG.com.com/multiple_crcl_2012.htm Performed By: #### C DP, PFA, CP, GLYHGB #### [facility] [employer] [address] [place] [address] [phone] Job Coach/Job Developer: Savage Jacob MD Anion gap [Moles/Vol] 12 mmol/L Normal 9-17 [facility] Comment on above: Performed By: #### C DP, PFA, CP, GLYHGB #### [facility] [employer] [address] [place] [address] [phone] Job Coach/Job Developer: Savage Jacob MD Calcium [Mass/Vol] 8.9 mg/dL Normal 8.6-10.4 [facility] Comment on above: Performed By: #### C DP, PFA, CP, GLYHGB #### [address] [address] Job Coach/Job Developer: Savage Jacob MD Chloride [Moles/Vol] 104 mmol/L Normal 98-107 [facility] Comment on above: Performed By: #### C DP, PFA, CP, GLYHGB #### [address] [address] Job Coach/Job Developer: Savage Jacob MD CO2 [Moles/Vol] 27 mmol/L Normal 20-31 [facility] Comment on above: Performed By: #### C DP, PFA, CP, GLYHGB #### [address] [address] Job Coach/Job Developer: Savage Jacob MD Creatinine [Mass/Vol] 1.28 mg/dL High 0.50-0.90 [facility] Comment on above: Performed By: #### C DP, PFA, CP, GLYHGB #### [address] [address] Job Coach/Job Developer: Savage Jacob MD GFR, Amer 50 mL/min Low >60 [facility] Comment on above: Performed By: #### C DP, PFA, CP, GLYHGB #### [facility] [employer] [address] [place] [phone] Job Coach/Job Developer: Savage Jacob MD GFR,non Amer 41 mL/min Low >60 [facility] Comment on above: Performed By: #### C DP, PFA, CP, GLYHGB #### [facility] [employer] [address] [place] [phone] Job Coach/Job Developer: Savage Jacob MD Glucose [Mass/Vol] 95 mg/dL Normal 70-99 [facility] Comment on above: Performed By: #### C DP, PFA, CP, GLYHGB #### [facility] [employer] [address] [place] [address] Job Coach/Job Developer: Savage Jacob MD Potassium [Moles/Vol] 3.8 mmol/L Normal 3.7-5.3 [facility] Comment on above: Performed By: #### C DP, PFA, CP, GLYHGB #### [facility] [employer] [address] [place] [address] Job Coach/Job Developer: Savage Jacob MD Sodium [Moles/Vol] 143 mmol/L Normal 135-144 [facility] Comment on above: Performed By: #### C DP, PFA, CP, GLYHGB #### [facility] [employer] [address] [place] [address] Job Coach/Job Developer: Savage Jacob MD Urea nitrogen [Mass/Vol] 33 mg/dL High 8-23 [facility] Comment on above: Performed By: #### C DP, PFA, CP, GLYHGB #### [facility] [employer] [address] [place] [address] Job Coach/Job Developer: Savage Jacob MD BUN/CRE Ratio NOT REPORTED Normal 9-20 [facility] Comment on above: Performed By: #### C DP, PFA, CP, GLYHGB #### [facility] [employer] [address] [place] [address] 46761 Job Coach/Job Developer: Savage Jacob MD Staging: NOT REPORTED Normal [facility] Comment on above: Performed By: #### C DP, PFA, CP, GLYHGB #### [facility] [employer] [address] [place] [address] Job Coach/Job Developer: Savage Jacob MD Basic Metabolic Panelon -0 Anion gap [Moles/Vol] 14 mmol/L 9 - 17 mmol/L [facility], [place] Bun/Cre Ratio NOT REPORTED [place] Calcium [Mass/Vol] 9.0 mg/dL 8.6 - 10. 4 mg/dL [place] Chloride [Moles/Vol] 104 mmol/L 98 - 10 7 mmol/L [place] CO2 [Moles/Vol] 26 mmol/L 20 - 31 mmol/L [place] Creatinine [Mass/Vol] 1.29 mg/dL High 0.5 - 0.9 mg/dL [place] GFR 50 mL/min Low >60 [place] GFR Comment [place] GFR Non- 41 mL/min Low >60 [place] GFR Staging NOT REPORTED [place] Glucose [Mass/Vol] 88 mg/dL 70 - 99 mg/dL [place] Interpretation and review of laboratory results Abnormal [place] Potassium [Moles/Vol] 4.0 mmol/L 3.7 - 5.3 mmol/L [place] Sodium [Moles/Vol] 144 mmol/L 135 - 144 mmol/L [place] Urea nitrogen [Mass/Vol] 34 mg/dL High 8 - 23 mg/dL [place] Basic Metabolic Panel w/ Ref mira to MGon 07-23-2019 Anion gap [Moles/Vol] 12 mmol/L 9 - 17 mmol/L [place] Bun/Cre Ratio NOT REPORTED [place] Calcium [Mass/Vol] 8.9 mg/dL 8.6 - 10. 4 mg/dL [place] Chloride [Moles/Vol] 104 mmol/L 98 - 10 7 mmol/L [place] CO2 [Moles/Vol] 27 mmol/L 20 - 31 mmol/L [place] Creatinine [Mass/Vol] 1.28 mg/dL High 0.5 - 0.9 mg/dL [place] GFR 50 mL/min Low >60 [place] GFR [place] GFR Non- 41 mL/min Low >60 [place] GFR Staging NOT REPORTED [place] Glucose [Mass/Vol] 95 mg/dL 70 - 99 mg/dL [place] Interpretation and review of laboratory results Abnormal [place] Potassium [Moles/Vol] 3.8 mmol/L 3.7 - 5.3 mmol/L [place] Sodium [Moles/Vol] 143 mmol/L 135 - 144 mmol/L [place] Urea nitrogen [Mass/Vol] 33 mg/dL High 8 - 23 mg/dL [place] Basic Metabolic Profon 07-22 (cont.) Normal [facility] Comment on above: Result Comment: Aver age GFR for 70 or more years old: 75 mL/min/1.73sq m Chronic Kidney Disease: <60 mL/min/1.73sq m Kidney failure: <15 mL/min/1.73sq m eGFR calculated using average adult body mass. Additional eGFR calculator available at: http://www.Cognea/multiple_crcl_2012.htm Performed By: #### C DP, PFA, CP, GLYHGB #### [employer] [address] [place] [address] Job Coach/Job Developer: Savage Jacob MD Anion gap [Moles/Vol] 14 mmol/L Normal 9-17 [facility] Comment on above: Performed By: #### C DP, PFA, CP, GLYHGB #### [employer] [address] [place] [address] [phone] Job Coach/Job Developer: Savage Jacob MD Calcium [Mass/Vol] 9.0 mg/dL Normal 8.6-10.4 [facility] Comment on above: Performed By: #### C DP, PFA, CP, GLYHGB #### [employer] [address] [place] [phone] Job Coach/Job Developer: Savage Jacob MD Chloride [Moles/Vol] 104 mmol/L Normal 98-107 [facility] Comment on above: Performed By: #### C DP, PFA, CP, GLYHGB #### [facility] [employer] [address] [place] [address] Job Coach/Job Developer: Savage Jacob MD CO2 [Moles/Vol] 26 mmol/L Normal 20-31 [facility] Comment on above: Performed By: #### C DP, PFA, CP, GLYHGB #### [facility] [address] [place] [address] Job Coach/Job Developer: Savage Jacob MD Creatinine [Mass/Vol] 1.29 mg/dL High 0.50-0.90 [facility] Comment on above: Performed By: #### C DP, PFA, CP, GLYHGB #### [facility] [employer] [address] [place] [address] Job Coach/Job Developer: Savage Jacob MD GFR, Amer 50 mL/min Low >60 [facility] Comment on above: Performed By: #### C DP, PFA, CP, GLYHGB #### [facility] [employer] [address] [place] [address] Job Coach/Job Developer: Savage Jacob MD GFR,non Amer 41 mL/min Low >60 [facility] Comment on above: Performed By: #### C DP, PFA, CP, GLYHGB #### [facility] [employer] [address] [place] [address] Job Coach/Job Developer: Savage Jacob MD Glucose [Mass/Vol] 88 mg/dL Normal 70-99 [facility] Comment on above: Performed By: #### C DP, PFA, CP, GLYHGB #### [facility] [employer] [address] [place] [address] Job Coach/Job Developer: Savage Jacob MD Potassium [Moles/Vol] 4.0 mmol/L Normal 3.7-5.3 [facility] Comment on above: Performed By: #### C DP, PFA, CP, GLYHGB #### [facility] [place] [address] Job Coach/Job Developer: Savage Jacob MD Sodium [Moles/Vol] 144 mmol/L Normal 135-144 [facility] Comment on above: Performed By: #### C DP, PFA, CP, GLYHGB #### [facility] [employer] [address] [place] [address] Job Coach/Job Developer: Savage Jacob MD Urea nitrogen [Mass/Vol] 34 mg/dL High 8- [facility] Comment on above: Performed By: #### C DP, PFA, CP, GLYHGB #### [facility] [employer] [address] [place] [address] Job Coach/Job Developer: Savage Jacob MD BUN/CRE Ratio NOT REPORTED Normal 02-09 [facility] Comment on above: Performed By: #### C DP, PFA, CP, GLYHGB #### [facility] [employer] [address] [place] [address] 12636 Job Coach/Job Developer: Savage Jacob MD Staging: NOT REPORTED Normal [facility] Comment on above: Performed By: #### C DP, PFA, CP, GLYHGB #### [facility] [employer] [address] [place] [address] Job Coach/Job Developer: Savage Jacob MD CBCon 07-23-2019 Erythrocyte distribution width (RBC) [Ratio] 15.6 % High 11.8-14.4 [facility] Comment on above: Performed By: #### C DP, PFA, CP, GLYHGB #### [facility] [employer] [address] [place] [address] Job Coach/Job Developer: Savage Jacob MD Hematocrit (Bld) [Volume fraction] 31.2 % Low 36.3-47.1 [facility] Comment on above: Performed By: #### C DP, PFA, CP, GLYHGB #### [facility] [address] [place] [address] Job Coach/Job Developer: Savage Jacob MD Hemoglobin (Bld) [Mass/Vol] 9.1 g/dL Low 11.9-15.1 [facility] Comment on above: Performed By: #### C DP, PFA, CP, GLYHGB #### [address] [address] Job Coach/Job Developer: Savage Jacob MD MCH (RBC) [Entitic mass] 28.4 pg Normal 25.2-33.5 [facility] Comment on above: Performed By: #### C DP, PFA, CP, GLYHGB #### [place] [address] Job Coach/Job Developer: Savage Jacob MD MCHC (RBC) [Mass/Vol] 29.2 g/dL Normal 28.4-34.8 [facility] Comment on above: Performed By: #### C DP, PFA, CP, GLYHGB #### [place] [address] Job Coach/Job Developer: Savage Jacob MD MCV (RBC) [Entitic vol] 97.5 fL Normal 82.6-102.9 [facility] Comment on above: Performed By: #### C DP, PFA, CP, GLYHGB #### [place] [address] Job Coach/Job Developer: Savage Jacob MD NRBC Automated 0.0 per 100 WBC Normal 0.0 [facility] Comment on above: Performed By: #### C DP, PFA, CP, GLYHGB #### [facility] [employer] [address] [place] [address] Job Coach/Job Developer: Savage Jacob MD Platelet mean volume (Bld) [Entitic vol] 9.9 fL Normal 8.1-13.5 [facility] Comment on above: Performed By: #### C DP, PFA, CP, GLYHGB #### [employer] [address] [place], [place] [phone] Job Coach/Job Developer: Savage Jacob MD Platelets (Bld) [#/Vol] 276 10*3/uL Normal 138-453 [facility] Comment on above: Performed By: #### C DP, PFA, CP, GLYHGB #### [facility] [employer] [facility] [place], [place] [phone] Job Coach/Job Developer: Savage Jacob MD RBC (Bld) [#/Vol] 3.20 10*6/uL Low 3.95-5.11 [facility] Comment on above: Performed By: #### C DP, PFA, CP, GLYHGB #### [facility] [employer] [facility] [place], [place] [phone] Job Coach/Job Developer: Savage Jacob MD WBC (Bld) [#/Vol] 10.8 10*3/uL Normal 3.5-11.3 [facility] Comment on above: Performed By: #### C DP, PFA, CP, GLYHGB #### [facility] [employer] [facility] [place], [place] [phone] Job Coach/Job Developer: Savage Jacob MD Erythrocyte distribution width (RBC) [Ratio] 15.6 % High 11.8 - 14.4 % [place] Hematocrit (Bld) [Volume fraction] 31.2 % Low 36.3 - 47.1 % [place] Hemoglobin (Bld) [Mass/Vol] 9.1 g/dL Low 11.9 - 15.1 g/dL [place] Interpretation and review of laboratory results Abnormal [place] MCH (RBC) [Entitic mass] 28.4 pg 25.2 - 33.5 pg [place] MCHC (RBC) [Mass/Vol] 29.2 g/dL 28.4 - 34.8 g/dL [place] MCV (RBC) [Entitic vol] 97.5 fL 82.6 - 102.9 fL [place] Platelet mean volume (Bld) [Entitic vol] 9.9 fL 8.1 - 13.5 fL [place] Platelets (Bld) [#/Vol] 276 10*3/uL [place] RBC (Bld) [#/Vol] 3.20 10*6/uL Low 3.95 - 5.1 1 m/uL [place] WBC (Bld) [#/Vol] 0.0 10*3/uL 0.0 per 10 0 WBC [place] WBC (Bld) [#/Vol] 10.8 10*3/uL [place] Magnesiumon 07-23-2019 Magnesium [Mass/Vol] 2.6 mg/dL Normal 1.6-2.6 [facility] Comment on above: Performed By: #### C DP, PFA, CP, GLYHGB #### [facility] [employer] [address] [place] [phone] Job Coach/Job Developer: Savage Jacob MD Magnesium [Mass/Vol] 2.6 mg/dL 1.6 - 2 .6 mg/dL [place] Otheron 07-23-2019 Interpretation and review of laboratory results Abnormal [place] POC Glucose Fingerstickon Interpretation and review of laboratory results Abnormal [place] POC Glucose 181 mg/dL High 65 - 105 mg/dL [place] Interpretation and review of laboratory results Abnormal [place] POC Glucose 108 mg/dL High 65 - 105 mg/dL [place] Interpretation and review of laboratory results Abnormal [place] POC Glucose 187 mg/dL High 65 - 105 mg/dL [place] Interpretation and review of laboratory results Abnormal [place] POC Glucose 111 mg/dL High 65 - 105 mg/dL [place] PTon 07-23-2019 INR Coag (PPP) [Relative time] 1.3 {INR} Normal [facility] Comment on above: Result Comment: Therapeutic Range: Moderate Anticoagulant Intensity: INR = 2.0-3.0 High Anticoagulant Intensity: INR = 2.5-3.5 Performed By: #### C DP, PFA, CP, GLYHGB #### [facility] [employer] [address] [place] [phone] Job Coach/Job Developer: Savage Jacob MD PT Coag (PPP) [Time] 13.6 s High 9.0-12.0 [facility] Comment on above: Performed By: #### C DP, PFA, CP, GLYHGB #### [facility] [employer] [address] [place] [address] [phone] Job Coach/Job Developer: Savage Jacob MD Phosphoruson 07-23-2019 Phosphate [Mass/Vol] 2.9 mg/dL 2.6 - 4 .5 mg/dL [place] Phosphorus, Inorg.on 020 Phosphorus, Inorg. 2.9 mg/dL Normal 2.6-4.5 [facility] Comment on above: Performed By: #### C DP, PFA, CP, GLYHGB #### [facility] [employer] [address] [place] [address] [phone] Job Coach/Job Developer: Savage Jacob MD Protime-INRon 07-23-2019 INR Coag (PPP) [Relative time] 1.3 {INR} [place] PT Coag (PPP) [Time] 13.6 s High [place] APTTon 07-22-2019 aPTT Coag (Bld) [Time] 59.4 s High 20.5-30.5 [facility] Comment on above: Performed By: #### C DP, PFA, CP, GLYHGB #### [facility] [employer] [address] [place] [address] [phone] Job Coach/Job Developer: Savage Jacob MD aPTT Coag (Bld) [Time] 59.4 s High [place] Basic Metabolic Panelon Anion gap [Moles/Vol] 14 mmol/L 9 - 17 mmol/L [place] Bun/Cre Ratio NOT REPORTED [place] Calcium [Mass/Vol] 8.9 mg/dL 8.6 - 10. 4 mg/dL [place] Chloride [Moles/Vol] 106 mmol/L 98 - 10 7 mmol/L [place] CO2 [Moles/Vol] 24 mmol/L 20 - 31 mmol/L [place] Creatinine [Mass/Vol] 1.49 mg/dL High 0.5 - 0.9 mg/dL [place] GFR 42 mL/min Low >60 [place] GFR [place] GFR Non- 35 mL/min Low >60 [place] GFR Staging NOT REPORTED [place] Glucose [Mass/Vol] 105 mg/dL High 70 - 99 mg/dL [place] Potassium [Moles/Vol] 3.7 mmol/L 3.7 - 5.3 mmol/L [place] Sodium [Moles/Vol] 144 mmol/L 135 - 144 mmol/L [place] Urea nitrogen [Mass/Vol] 45 mg/dL High 8 - 23 mg/dL [place] Basic Metabolic Profon 07-21 (cont.) Normal [facility] Comment on above: Result Comment: Aver age GFR for 70 or more years old: 75 mL/min/1.73sq m Chronic Kidney Disease: <60 mL/min/1.73sq m Kidney failure: <15 mL/min/1.73sq m eGFR calculated using average adult body mass. Additional eGFR calculator available at: http://www.MFG.com.[employer]/multiple_crcl_2012.htm Performed By: #### C DP, PFA, CP, GLYHGB #### [employer] [address] [place] [address] Job Coach/Job Developer: Savage Jacob MD Anion gap [Moles/Vol] 14 mmol/L Normal 9-17 [facility] Comment on above: Performed By: #### C DP, PFA, CP, GLYHGB #### [employer] [address] [place] [address] Job Coach/Job Developer: Savage Jacob MD Calcium [Mass/Vol] 8.9 mg/dL Normal 8.6-10.4 [facility] Comment on above: Performed By: #### C DP, PFA, CP, GLYHGB #### [facility] [employer] [address] [place] [address]26 Job Coach/Job Developer: Savage Jacob MD Chloride [Moles/Vol] 106 mmol/L Normal 98-107 [facility] Comment on above: Performed By: #### C DP, PFA, CP, GLYHGB #### [address] [address] Job Coach/Job Developer: Savage Jacob MD CO2 [Moles/Vol] 24 mmol/L Normal 20-31 [facility] Comment on above: Performed By: #### C DP, PFA, CP, GLYHGB #### [facility] [employer] [address] [place] [address] 08856 Job Coach/Job Developer: Savage Jacob MD Creatinine [Mass/Vol] 1.49 mg/dL High 0.50-0.90 [facility] Comment on above: Performed By: #### C DP, PFA, CP, GLYHGB #### [facility] [employer] [address] [place] [address]38 Job Coach/Job Developer: Savage Jacob MD GFR, Amer 42 mL/min Low >60 [facility] Comment on above: Performed By: #### C DP, PFA, CP, GLYHGB #### [facility] [employer] [address] [place] [address] 95602 Job Coach/Job Developer: Savage Jacob MD GFR,non Amer 35 mL/min Low >60 [facility] Comment on above: Performed By: #### C DP, PFA, CP, GLYHGB #### [facility] [employer] [address] [place] [address] 55622 Job Coach/Job Developer: Savage Jacob MD Glucose [Mass/Vol] 105 mg/dL High 70-99 [facility] Comment on above: Performed By: #### C DP, PFA, CP, GLYHGB #### [facility] [employer] [address] [place] [address] 06753 Job Coach/Job Developer: Savage Jacob MD Potassium [Moles/Vol] 3.7 mmol/L Normal 3.7-5.3 [facility] Comment on above: Performed By: #### C DP, PFA, CP, GLYHGB #### [facility] [employer] [address] [place] [address] 18705 Job Coach/Job Developer: Savage Jacob MD Sodium [Moles/Vol] 144 mmol/L Normal 135-144 [facility] Comment on above: Performed By: #### C DP, PFA, CP, GLYHGB #### [address] [address] Job Coach/Job Developer: Savage Jacob MD Urea nitrogen [Mass/Vol] 45 mg/dL High 8-23 [facility] Comment on above: Performed By: #### C DP, PFA, CP, GLYHGB #### [facility] [employer] [address] [place] [phone] Job Coach/Job Developer: Savage Jacob MD BUN/CRE Ratio NOT REPORTED Normal 9-20 [facility] Comment on above: Performed By: #### C DP, PFA, CP, GLYHGB #### [facility] [employer] [address] [place] [address] 9[address]25 Job Coach/Job Developer: Savage Jacob MD Staging: NOT REPORTED Normal [facility] Comment on above: Performed By: #### C DP, PFA, CP, GLYHGB #### [facility] [employer] [address] [place] [address] Job Coach/Job Developer: Savage Jacob MD CBCon 07-22-2019 Erythrocyte distribution width (RBC) [Ratio] 15.5 % High 11.8-14.4 [facility] Comment on above: Performed By: #### C DP, PFA, CP, GLYHGB #### [address] [address] Job Coach/Job Developer: Savage Jacob MD Hematocrit (Bld) [Volume fraction] 30.6 % Low 36.3-47.1 [facility] Comment on above: Performed By: #### C DP, PFA, CP, GLYHGB #### [address] [address] Job Coach/Job Developer: Savage Jacob MD Hemoglobin (Bld) [Mass/Vol] 9.1 g/dL Low 11.9-15.1 [facility] Comment on above: Performed By: #### C DP, PFA, CP, GLYHGB #### [place] [address] Job Coach/Job Developer: Savage Jacob MD MCH (RBC) [Entitic mass] 28.3 pg Normal 25.2-33.5 [facility] Comment on above: Performed By: #### C DP, PFA, CP, GLYHGB #### [address] [address] Job Coach/Job Developer: Savage Jacob MD MCHC (RBC) [Mass/Vol] 29.7 g/dL Normal 28.4-34.8 [facility] Comment on above: Performed By: #### C DP, PFA, CP, GLYHGB #### [address] [address] Job Coach/Job Developer: Savage Jacob MD MCV (RBC) [Entitic vol] 95.3 fL Normal 82.6-102.9 [facility] Comment on above: Performed By: #### C DP, PFA, CP, GLYHGB #### [address] [address] Job Coach/Job Developer: Savage Jacob MD NRBC Automated 0.0 per 100 WBC Normal 0.0 [facility] Comment on above: Performed By: #### C DP, PFA, CP, GLYHGB #### [address] [address] Job Coach/Job Developer: Savage Jacob MD Platelet mean volume (Bld) [Entitic vol] 9.7 fL Normal 8.1-13.5 [facility] Comment on above: Performed By: #### C DP, PFA, CP, GLYHGB #### [address] [address] Job Coach/Job Developer: Savage Jacob MD Platelets (Bld) [#/Vol] 291 10*3/uL Normal 138-453 [facility] Comment on above: Performed By: #### C DP, PFA, CP, GLYHGB #### [place] [address] Job Coach/Job Developer: Savage Jacob MD RBC (Bld) [#/Vol] 3.21 10*6/uL Low 3.95-5.11 [facility] Comment on above: Performed By: #### C DP, PFA, CP, GLYHGB #### [address] [address] Job Coach/Job Developer: Savage Jacob MD WBC (Bld) [#/Vol] 17.3 10*3/uL High 3.5-11.3 [facility] Comment on above: Performed By: #### C DP, PFA, CP, GLYHGB #### [facility] [employer] [address] [place] [address] Job Coach/Job Developer: Savage Jacob MD Erythrocyte distribution width (RBC) [Ratio] 15.5 % High 11.8 - 14.4 % [place] Hematocrit (Bld) [Volume fraction] 30.6 % Low 36.3 - 47.1 % [place] Hemoglobin (Bld) [Mass/Vol] 9.1 g/dL Low 11.9 - 15.1 g/dL [place] Interpretation and review of laboratory results Abnormal [place] MCH (RBC) [Entitic mass] 28.3 pg 25.2 - 33.5 pg [place] MCHC (RBC) [Mass/Vol] 29.7 g/dL 28.4 - 34.8 g/dL [place] MCV (RBC) [Entitic vol] 95.3 fL 82.6 - 102.9 fL [place] Platelet mean volume (Bld) [Entitic vol] 9.7 fL 8.1 - 13.5 fL [place] Platelets (Bld) [#/Vol] 291 10*3/uL [place] RBC (Bld) [#/Vol] 3.21 10*6/uL Low 3.95 - 5.1 1 m/uL [place] WBC (Bld) [#/Vol] 0.0 10*3/uL 0.0 per 10 0 WBC [place] WBC (Bld) [#/Vol] 17.3 10*3/uL [place] K (Potassium)on 07-22-2019 Potassium [Moles/Vol] 3.7 mmol/L Normal 3.7-5.3 [facility] Comment on above: Performed By: #### C DP, PFA, CP, GLYHGB #### [facility] [employer] [address] [place], [place] [phone] Job Coach/Job Developer: Savage Jacob MD Magnesiumon 07-22-2019 Magnesium [Mass/Vol] 2.8 mg/dL High 1.6-2.6 [facility] Comment on above: Performed By: #### C DP, PFA, CP, GLYHGB #### [facility] [employer] [facility] [place], [place] [phone] Job Coach/Job Developer: Savage Jacob MD Magnesium [Mass/Vol] 2.8 mg/dL High 1.6 - 2 .6 mg/dL [place] Otheron 07-22-2019 Interpretation and review of laboratory results Abnormal [place] Interpretation and review of laboratory results Abnormal [place] POC Glucose Fingerstickon Interpretation and review of laboratory results Abnormal [place] POC Glucose 230 mg/dL High 65 - 105 mg/dL [place] Interpretation and review of laboratory results Abnormal [place] POC Glucose 227 mg/dL High 65 - 105 mg/dL [place] POC Glucose 83 mg/dL 65 - 105 mg/dL [place] POC Glucose 97 mg/dL 65 - 105 mg/dL [place] POTASSIUMon 07-22-2019 Potassium [Moles/Vol] 3.7 mmol/L 3.7 - 5.3 mmol/L [place] PTon 07-22-2019 INR Coag (PPP) [Relative time] 1.2 {INR} Normal [facility] Comment on above: Result Comment: Therapeutic Range: Moderate Anticoagulant Intensity: INR = 2.0-3.0 High Anticoagulant Intensity: INR = 2.5-3.5 Performed By: #### C DP, PFA, CP, GLYHGB #### [facility] [employer] [address] [place] [phone] Job Coach/Job Developer: Savage Jacob MD PT Coag (PPP) [Time] 12.4 s High 9.0-12.0 [facility] Comment on above: Performed By: #### C DP, PFA, CP, GLYHGB #### [facility] [employer] [address] [place], [place] [phone] Job Coach/Job Developer: Savage Jacob MD Protime-INRon 07-22-2019 INR Coag (PPP) [Relative time] 1.2 {INR} [place] PT Coag (PPP) [Time] 12.4 s High [place], [place] XR CHEST (SINGLE VIEW FRONTA L)on [...] Morro Miranda MD 07/21/19 Final result Normal [facility] APTTon 07-21-2019 aPTT Coag (Bld) [Time] 56.0 s High 20.5-30.5 [facility] Comment on above: Performed By: #### C DP, PFA, CP, GLYHGB #### [facility] [address] [place] [address] [phone] Job Coach/Job Developer: Savage Jacob MD aPTT Coag (Bld) [Time] 56.0 s [place], [place] Interpretation and review of laboratory results Abnormal [place] aPTT Coag (Bld) [Time] 84.1 s High 20.5-30.5 [facility] Comment on above: Performed By: #### C DP, PFA, CP, GLYHGB #### [facility] [place], [place] [phone] Job Coach/Job Developer: Savage Jacob MD aPTT Coag (Bld) [Time] 84.1 s [place] Interpretation and review of laboratory results Abnormal [place] aPTT Coag (Bld) [Time] 70.7 s High 20.5-30.5 [facility] Comment on above: Performed By: #### C DP, PFA, CP, GLYHGB #### [facility] [employer] [address] [place] [address] Job Coach/Job Developer: Savage Jacob MD aPTT Coag (Bld) [Time] 70.7 s [place] Anion Gap (Calc) POCon Anion gap [Moles/Vol] 12 mmol/L 7 - 16 mmol/L [place] Arterial Blood Gas, POCon Graham Test Positive [place] FIO2 15.0 [place] Mode NOT REPORTED [place], [place] Negative Base Excess, Art NOT REPORTED [place] O2 Device/Flow/% NRB [place] POC HCO3 29.2 mmol/L High 21 - 28 mmol/L [place] POC O2 SAT 94 % 94 - 98 % [place] POC pCO2 45.1 [place] POC pCO2 Temp NOT REPORTED mm Hg [place] POC pH 7.419 [place] POC pH Temp NOT REPORTED [facility] [place] POC PO2 70.8 Low [place] POC pO2 Temp NOT REPORTED mm Hg [place] Positive Base Excess, Art 4 High [place] Pt Temp NOT REPORTED [place] Sample Site Left Radial Artery [place] TCO2 (calc), Art 31 mmol/L High 22 - 29 mmol/L [place] Basic Metabolic Panelon 06-24 Anion gap [Moles/Vol] 14 mmol/L 9 - 17 mmol/L [place] Bun/Cre Ratio NOT REPORTED [place] Calcium [Mass/Vol] 9.0 mg/dL 8.6 - 10. 4 mg/dL [place] Chloride [Moles/Vol] 103 mmol/L 98 - 10 7 mmol/L [place] CO2 [Moles/Vol] 26 mmol/L 20 - 31 mmol/L [place] Creatinine [Mass/Vol] 1.74 mg/dL High 0.5 - 0.9 mg/dL [place] GFR 35 mL/min Low >60 [place] GFR Comment [place] GFR Non- 29 mL/min Low >60 [place] GFR Staging NOT REPORTED [place] Glucose [Mass/Vol] 184 mg/dL High 70 - 99 mg/dL [place] Potassium [Moles/Vol] 4.4 mmol/L 3.7 - 5.3 mmol/L [place] Sodium [Moles/Vol] 143 mmol/L 135 - 144 mmol/L [place] Urea nitrogen [Mass/Vol] 57 mg/dL High 8 - 23 mg/dL [place] Basic Metabolic Profon (cont.) Normal [facility] Comment on above: Result Comment: Aver age GFR for 70 or more years old: 75 mL/min/1.73sq m Chronic Kidney Disease: <60 mL/min/1.73sq m Kidney failure: <15 mL/min/1.73sq m eGFR calculated using average adult body mass. Additional eGFR calculator available at: http://www.MFG.com.[employer]/multiple_crcl_2011.htm Performed By: #### C DP, PFA, CP, GLYHGB #### [employer] [address] [place] [address] Job Coach/Job Developer: Savage Jacob MD Anion gap [Moles/Vol] 14 mmol/L Normal 9-17 [facility] Comment on above: Performed By: #### C DP, PFA, CP, GLYHGB #### [employer] [address] [place], [place] [phone] Job Coach/Job Developer: Savage Jacob MD Calcium [Mass/Vol] 9.0 mg/dL Normal 8.6-10.4 [facility] Comment on above: Performed By: #### C DP, PFA, CP, GLYHGB #### [employer] [address] [place] [address] [phone] Job Coach/Job Developer: Savage Jacob MD Chloride [Moles/Vol] 103 mmol/L Normal 98-107 [facility] Comment on above: Performed By: #### C DP, PFA, CP, GLYHGB #### [address] [address] Job Coach/Job Developer: Savage Jacob MD CO2 [Moles/Vol] 26 mmol/L Normal 20-31 [facility] Comment on above: Performed By: #### C DP, PFA, CP, GLYHGB #### [address] [address] Job Coach/Job Developer: Savage Jacob MD Creatinine [Mass/Vol] 1.74 mg/dL High 0.50-0.90 [facility] Comment on above: Performed By: #### C DP, PFA, CP, GLYHGB #### [address] [address] Job Coach/Job Developer: Savage Jacob MD GFR, Amer 35 mL/min Low >60 [facility] Comment on above: Performed By: #### C DP, PFA, CP, GLYHGB #### [address] [address] Job Coach/Job Developer: Savage Jacob MD GFR,non Amer 29 mL/min Low >60 [facility] Comment on above: Performed By: #### C DP, PFA, CP, GLYHGB #### [address] [address] Job Coach/Job Developer: Savage Jacob MD Glucose [Mass/Vol] 184 mg/dL High 70-99 [facility] Comment on above: Performed By: #### C DP, PFA, CP, GLYHGB #### [address] [address] Job Coach/Job Developer: Savage Jacob MD Potassium [Moles/Vol] 4.4 mmol/L Normal 3.7-5.3 [facility] Comment on above: Performed By: #### C DP, PFA, CP, GLYHGB #### [facility] [employer] [address] [place] [address] Job Coach/Job Developer: Savage Jacob MD Sodium [Moles/Vol] 143 mmol/L Normal 135-144 [facility] Comment on above: Performed By: #### C DP, PFA, CP, GLYHGB #### [facility] [employer] [address] [place] [address] Job Coach/Job Developer: Savage Jacob MD Urea nitrogen [Mass/Vol] 57 mg/dL High - [facility] Comment on above: Performed By: #### C DP, PFA, CP, GLYHGB #### [address] [address] Job Coach/Job Developer: Savage Jacob MD BUN/CRE Ratio NOT REPORTED Normal 02-09 [facility] Comment on above: Performed By: #### C DP, PFA, CP, GLYHGB #### [facility] [employer] [address] [place] [address] Job Coach/Job Developer: Savage Jacob MD Staging: NOT REPORTED Normal [facility] Comment on above: Performed By: #### C DP, PFA, CP, GLYHGB #### [facility] [employer] [address] [place] [address] Job Coach/Job Developer: Savage Jacob MD CALCIUM, IONIC (POC)on POC Ionized Calcium 1.20 mmol/L 1.15 - 1 .33 mmol/L [place] CBCon 07-21-2019 Erythrocyte distribution width (RBC) [Ratio] 16.0 % High 11.8-14.4 [facility] Comment on above: Performed By: #### C DP, PFA, CP, GLYHGB #### [facility] [employer] [address] [place] [address] Job Coach/Job Developer: Savage Jacob MD Hematocrit (Bld) [Volume fraction] 28.5 % Low 36.3-47.1 [facility] Comment on above: Performed By: #### C DP, PFA, CP, GLYHGB #### [place] [address] Job Coach/Job Developer: Savage Jacob MD Hemoglobin (Bld) [Mass/Vol] 8.5 g/dL Low 11.9-15.1 [facility] Comment on above: Performed By: #### C DP, PFA, CP, GLYHGB #### [place] [address] Job Coach/Job Developer: Savage Jacob MD MCH (RBC) [Entitic mass] 28.6 pg Normal 25.2-33.5 [facility] Comment on above: Performed By: #### C DP, PFA, CP, GLYHGB #### [place] [address] Job Coach/Job Developer: Savage Jacob MD MCHC (RBC) [Mass/Vol] 29.8 g/dL Normal 28.4-34.8 [facility] Comment on above: Performed By: #### C DP, PFA, CP, GLYHGB #### [place] [address] Job Coach/Job Developer: Savage Jacob MD MCV (RBC) [Entitic vol] 96.0 fL Normal 82.6-102.9 [facility] Comment on above: Performed By: #### C DP, PFA, CP, GLYHGB #### [place] [address] Job Coach/Job Developer: Savage Jacob MD NRBC Automated 0.0 per 100 WBC Normal 0.0 [facility] Comment on above: Performed By: #### C DP, PFA, CP, GLYHGB #### [address] [place] [address] Job Coach/Job Developer: Savage Jacob MD Platelet mean volume (Bld) [Entitic vol] 10.0 fL Normal 8.1-13.5 [facility] Comment on above: Performed By: #### C DP, PFA, CP, GLYHGB #### [address] [address] Job Coach/Job Developer: Savage Jacob MD Platelets (Bld) [#/Vol] 287 10*3/uL Normal 138-453 [facility] Comment on above: Performed By: #### C DP, PFA, CP, GLYHGB #### [address] [address] Job Coach/Job Developer: Savage Jacob MD RBC (Bld) [#/Vol] 2.97 10*6/uL Low 3.95-5.11 [facility] Comment on above: Performed By: #### C DP, PFA, CP, GLYHGB #### [address] [address] Job Coach/Job Developer: aSvage Jacob MD WBC (Bld) [#/Vol] 15.1 10*3/uL High 3.5-11.3 [facility] Comment on above: Performed By: #### C DP, PFA, CP, GLYHGB #### [address] [address] Job Coach/Job Developer: Savage Jacob MD Erythrocyte distribution width (RBC) [Ratio] 16.0 % High 11.8 - 14.4 % [place] Hematocrit (Bld) [Volume fraction] 28.5 % Low 36.3 - 47.1 % [place] Hemoglobin (Bld) [Mass/Vol] 8.5 g/dL Low 11.9 - 15.1 g/dL [place] Interpretation and review of laboratory results Abnormal [place] MCH (RBC) [Entitic mass] 28.6 pg 25.2 - 33.5 pg [place] MCHC (RBC) [Mass/Vol] 29.8 g/dL 28.4 - 34.8 g/dL [place] MCV (RBC) [Entitic vol] 96.0 fL 82.6 - 102.9 fL [place] Platelet mean volume (Bld) [Entitic vol] 10.0 fL 8.1 - 13.5 fL [place] Platelets (Bld) [#/Vol] 287 10*3/uL [place] RBC (Bld) [#/Vol] 2.97 10*6/uL Low 3.95 - 5.1 1 m/uL [place] WBC (Bld) [#/Vol] 15.1 10*3/uL [place] WBC (Bld) [#/Vol] 0.0 10*3/uL 0.0 per 10 0 WBC [place] CHLORIDE (POC)on 07-21-2019 POC Chloride 104 mmol/L 98 - 107 mmol/L [place] Creatinine W/GFR Point of Ca reon 07-21-2019 GFR Comment [place] GFR Comment 34 mL/min Low >60 [place] GFR Non- 28 mL/min Low >60 [place] POC Creatinine 1.78 mg/dL High 0.51 - 1.19 mg/dL [place] Cult,Bloodon 07-21-2019 Cult,Blood Specimen Description .BLOOD Special Requests L ARM 10 CC Culture NO GROWTH 6 DAYS Report Status FINAL 07/21/2019 Normal [facility] Comment on above: Performed By: #### C DP, PFA, CP, GLYHGB #### [employer] [place] [address] Job Coach/Job Developer: Savage Jacob MD Cult,Blood Specimen Description .BLOOD Special Requests R ARM 10 CC Culture NO GROWTH 6 DAYS Report Status FINAL 07/21/2019 [facility] Comment on above: Performed By: #### C DP, PFA, CP, GLYHGB #### [employer] [address] [place], [place] [phone] Job Coach/Job Developer: Savage Jacob MD Culture, Blood 1on 0 Special Requests L ARM 10 CC [place], [place] Special Requests R ARM 10 CC [place] Hemoglobin and hematocrit, b loodon 07-21-2019 POC Hematocrit 28 % Low 36 - 46 % [place] POC Hemoglobin 9.5 g/dL Low 12 - 16 g/dL [place], [place] Lactic Acid, POCon 0 POC Lactic Acid 0.95 mmol/L 0.56 - 1.39 mmol/L [place] Magnesiumon 07-21-2019 Magnesium [Mass/Vol] 3.1 mg/dL High 1.6-2.6 [facility] Comment on above: Performed By: #### C DP, PFA, CP, GLYHGB #### [facility] [place] [address] Job Coach/Job Developer: Savage Jacob MD Magnesium [Mass/Vol] 3.1 mg/dL High 1.6 - 2 .6 mg/dL [place] Otheron 07-21-2019 Interpretation and review of laboratory results Abnormal [place] Interpretation and review of laboratory results Abnormal [place] Interpretation and review of laboratory results Abnormal [place] Culture NO GROWTH 6 DAYS [place] Specimen Description .BLOOD [place] POC Glucose Fingerstickon Interpretation and review of laboratory results Abnormal [place] POC Glucose 156 mg/dL High 65 - 105 mg/dL [place] Interpretation and review of laboratory results Abnormal [place] POC Glucose 218 mg/dL High 65 - 105 mg/dL [place] Interpretation and review of laboratory results Abnormal [place] POC Glucose 192 mg/dL High 65 - 105 mg/dL [place] POCT Glucoseon 07-21-2019 POC Glucose 187 mg/dL High 74 - 100 mg/dL [place] POTASSIUM (POC)on 07-21-2019 POC Potassium 3.3 mmol/L Low 3.5 - 4.5 mmol/L [place] PTon 07-21-2019 INR Coag (PPP) [Relative time] 1.2 {INR} Normal [facility] Comment on above: Result Comment: Therapeutic Range: Moderate Anticoagulant Intensity: INR = 2.0-3.0 High Anticoagulant Intensity: INR = 2.5-3.5 Performed By: #### C DP, PFA, CP, GLYHGB #### [employer] [address] [place], [place] [phone] Job Coach/Job Developer: Savage Jacob MD PT Coag (PPP) [Time] 12.3 s High 9.0-12.0 [facility] Comment on above: Performed By: #### C DP, PFA, CP, GLYHGB #### [facility] [employer] [address] [place] [address] [phone] Job Coach/Job Developer: Savage Jacob MD Protime-INRon 07-21-2019 INR Coag (PPP) [Relative time] 1.2 {INR} [place] PT Coag (PPP) [Time] 12.3 s [place] SODIUM (POC)on 07-21-2019 POC Sodium 145 mmol/L 138 - 146 mmol/L [place] XR CHEST (SINGLE VIEW FRONTA L)on 07-21-2019 [place] XR CHEST PORTABLEon 07-21-19 20 XR [...] Dmitry Mcelroy MD 07/21/19 Final result Normal [place], [place] APTTon 07-20-2019 aPTT Coag (Bld) [Time] 79.3 s High 20.5-30.5 [facility] Comment on above: Performed By: #### C DP, PFA, CP, GLYHGB #### [facility] [employer] [address] [place] [phone] Job Coach/Job Developer: Savage Jacob MD aPTT Coag (Bld) [Time] 79.3 s High [place] Interpretation and review of laboratory results Abnormal [place] aPTT Coag (Bld) [Time] 68.2 s High 20.5-30.5 [facility] Comment on above: Performed By: #### C DP, PFA, CP, GLYHGB #### [facility] [employer] [address] [place] [phone] Job Coach/Job Developer: Savage Jacob MD aPTT Coag (Bld) [Time] 68.2 s High [place] Interpretation and review of laboratory results Abnormal [place] Basic Metabolic Panelon 06-24 Anion gap [Moles/Vol] 16 mmol/L 9 - 17 mmol/L [place] Bun/Cre Ratio NOT REPORTED [place] Calcium [Mass/Vol] 8.7 mg/dL 8.6 - 10. 4 mg/dL [place] Chloride [Moles/Vol] 101 mmol/L 98 - 10 7 mmol/L [place] CO2 [Moles/Vol] 25 mmol/L 20 - 31 mmol/L [place] Creatinine [Mass/Vol] 1.7 mg/dL High 0.5 - 0.9 mg/dL [place] GFR 36 mL/min Low >60 [place] GFR Comment [place] GFR Non- 30 mL/min Low >60 [place] GFR Staging NOT REPORTED [place] Glucose [Mass/Vol] 174 mg/dL High 70 - 99 mg/dL [place] Potassium [Moles/Vol] 4.5 mmol/L 3.7 - 5.3 mmol/L [place] Sodium [Moles/Vol] 142 mmol/L 135 - 144 mmol/L [place] Urea nitrogen [Mass/Vol] 51 mg/dL High 8 - 23 mg/dL [place] Basic Metabolic Profon 07-20 (cont.) Normal [facility] Comment on above: Result Comment: Aver age GFR for 70 or more years old: 75 mL/min/1.73sq m Chronic Kidney Disease: <60 mL/min/1.73sq m Kidney failure: <15 mL/min/1.73sq m eGFR calculated using average adult body mass. Additional eGFR calculator available at: http://www.MFG.com.[employer]/multiple_crcl_2012.htm Performed By: #### C DP, PFA, CP, GLYHGB #### [employer] [address] [place] [phone] Job Coach/Job Developer: Savage Jacob MD Anion gap [Moles/Vol] 16 mmol/L Normal 9-17 [facility] Comment on above: Performed By: #### C DP, PFA, CP, GLYHGB #### [employer] [address] [place] [address] [phone] Job Coach/Job Developer: Savage Jacob MD Calcium [Mass/Vol] 8.7 mg/dL Normal 8.6-10.4 [facility] Comment on above: Performed By: #### C DP, PFA, CP, GLYHGB #### [employer] [address] [place] [phone] Job Coach/Job Developer: Savage Jacob MD Chloride [Moles/Vol] 101 mmol/L Normal 98-107 [facility] Comment on above: Performed By: #### C DP, PFA, CP, GLYHGB #### [address] [address] Job Coach/Job Developer: Savage Jacob MD CO2 [Moles/Vol] 25 mmol/L Normal 20-31 [facility] Comment on above: Performed By: #### C DP, PFA, CP, GLYHGB #### [place] [address] Job Coach/Job Developer: Savage Jacob MD Creatinine [Mass/Vol] 1.70 mg/dL High 0.50-0.90 [facility] Comment on above: Performed By: #### C DP, PFA, CP, GLYHGB #### [place] [address] Job Coach/Job Developer: Savage Jacob MD GFR, Amer 36 mL/min Low >60 [facility] Comment on above: Performed By: #### C DP, PFA, CP, GLYHGB #### [place] [address] Job Coach/Job Developer: Savage Jacob MD GFR,non Amer 30 mL/min Low >60 [facility] Comment on above: Performed By: #### C DP, PFA, CP, GLYHGB #### [place] [address] Job Coach/Job Developer: Savage Jacob MD Glucose [Mass/Vol] 174 mg/dL High 70-99 [facility] Comment on above: Performed By: #### C DP, PFA, CP, GLYHGB #### [address] [address] Job Coach/Job Developer: Savage Jacob MD Potassium [Moles/Vol] 4.5 mmol/L Normal 3.7-5.3 [facility] Comment on above: Performed By: #### C DP, PFA, CP, GLYHGB #### [facility] [employer] [address] [place] [address] Job Coach/Job Developer: Savage Jacob MD Sodium [Moles/Vol] 142 mmol/L Normal 135-144 [facility] Comment on above: Performed By: #### C DP, PFA, CP, GLYHGB #### [facility] [employer] [address] [place] [address] Job Coach/Job Developer: Savage Jacob MD Urea nitrogen [Mass/Vol] 51 mg/dL High 8- [facility] Comment on above: Performed By: #### C DP, PFA, CP, GLYHGB #### [facility] [employer] [address] [place] [address] Job Coach/Job Developer: Savage Jacob MD BUN/CRE Ratio NOT REPORTED Normal 02-09 [facility] Comment on above: Performed By: #### C DP, PFA, CP, GLYHGB #### [facility] [employer] [address] [place] [phone] Job Coach/Job Developer: Savage Jacob MD Staging: NOT REPORTED Normal [facility] Comment on above: Performed By: #### C DP, PFA, CP, GLYHGB #### [address] [address] Job Coach/Job Developer: Savage Jacob MD CBCon 07-20-2019 Erythrocyte distribution width (RBC) [Ratio] 16.2 % High 11.8-14.4 [facility] Comment on above: Performed By: #### C DP, PFA, CP, GLYHGB #### [facility] [employer] [address] [place] [address] Job Coach/Job Developer: Savage Jacob MD Hematocrit (Bld) [Volume fraction] 27.8 % Low 36.3-47.1 [facility] Comment on above: Performed By: #### C DP, PFA, CP, GLYHGB #### [address] [address] Job Coach/Job Developer: Savage Jacob MD Hemoglobin (Bld) [Mass/Vol] 8.6 g/dL Low 11.9-15.1 [facility] Comment on above: Performed By: #### C DP, PFA, CP, GLYHGB #### [place] [address] Job Coach/Job Developer: Savage Jacob MD MCH (RBC) [Entitic mass] 29.1 pg Normal 25.2-33.5 [facility] Comment on above: Performed By: #### C DP, PFA, CP, GLYHGB #### [place] [address] Job Coach/Job Developer: Savage Jacob MD MCHC (RBC) [Mass/Vol] 30.9 g/dL Normal 28.4-34.8 [facility] Comment on above: Performed By: #### C DP, PFA, CP, GLYHGB #### [place] [address] Job Coach/Job Developer: Savage Jacob MD MCV (RBC) [Entitic vol] 93.9 fL Normal 82.6-102.9 [facility] Comment on above: Performed By: #### C DP, PFA, CP, GLYHGB #### [place] [address] Job Coach/Job Developer: Savage Jacob MD NRBC Automated 0.1 per 100 WBC High 0.0 [facility] Comment on above: Performed By: #### C DP, PFA, CP, GLYHGB #### [place] [address] Job Coach/Job Developer: Savage Jacob MD Platelet mean volume (Bld) [Entitic vol] 10.2 fL Normal 8.1-13.5 [facility] Comment on above: Performed By: #### C DP, PFA, CP, GLYHGB #### [facility] [place], [place] [phone] Job Coach/Job Developer: Savage Jacob MD Platelets (Bld) [#/Vol] 370 10*3/uL Normal 138-453 [facility] Comment on above: Performed By: #### C DP, PFA, CP, GLYHGB #### [facility] [employer] [address] [place] [address] [phone] Job Coach/Job Developer: Savage Jacob MD RBC (Bld) [#/Vol] 2.96 10*6/uL Low 3.95-5.11 [facility] Comment on above: Performed By: #### C DP, PFA, CP, GLYHGB #### [facility] [address] [place] [phone] Job Coach/Job Developer: Savage Jacob MD WBC (Bld) [#/Vol] 23.1 10*3/uL High 3.5-11.3 [facility] Comment on above: Performed By: #### C DP, PFA, CP, GLYHGB #### [facility] [address] [place] [address] [phone] Job Coach/Job Developer: Savage Jacob MD Erythrocyte distribution width (RBC) [Ratio] 16.2 % High 11.8 - 14.4 % [place] Hematocrit (Bld) [Volume fraction] 27.8 % Low 36.3 - 47.1 % [place] Hemoglobin (Bld) [Mass/Vol] 8.6 g/dL Low 11.9 - 15.1 g/dL [place] Interpretation and review of laboratory results Abnormal [place] MCH (RBC) [Entitic mass] 29.1 pg 25.2 - 33.5 pg [place] MCHC (RBC) [Mass/Vol] 30.9 g/dL 28.4 - 34.8 g/dL [place] MCV (RBC) [Entitic vol] 93.9 fL 82.6 - 102.9 fL [place] Platelet mean volume (Bld) [Entitic vol] 10.2 fL 8.1 - 13.5 fL [place] Platelets (Bld) [#/Vol] 370 10*3/uL [place] RBC (Bld) [#/Vol] 2.96 10*6/uL Low 3.95 - 5.1 1 m/uL [place] WBC (Bld) [#/Vol] 0.1 10*3/uL High 0.0 per 10 0 WBC [place] WBC (Bld) [#/Vol] 23.1 10*3/uL [place] EKG 12 Leadon 07-20-2019 Atrial Rate 67 BPM [facility], [place] P [place] 65 degrees [facility], [place] P-R Interval 204 ms [facility], [place] Q-T Interval 414 ms [facility], [place] QRS Duration 92 ms [place] QTc Calculation (Bazett) 437 ms [facility], [place] R [place] 46 degrees [facility], [place] T [place] -19 degrees [facility], [place] Ventricular Rate 67 BPM [facility]- [place] [facility] [facility]- [place], [place] Atrial Rate 64 BPM [facility], [place] P [place] 57 degrees [facility], [place] P-R Interval 178 ms [facility], [place] Q-T Interval 434 ms [facility], [place] QRS Duration 90 ms [place] QTc Calculation (Bazett) 447 ms [facility], [place] R [place] 57 degrees [facility] [place], [place] T [place] -80 degrees [facility], [place] Ventricular Rate 64 BPM [facility] [place] [facility] [place] [facility], [place] Magnesiumon 07-20-2019 Magnesium [Mass/Vol] 2.8 mg/dL High 1.6-2.6 [facility] Comment on above: Performed By: #### C DP, PFA, CP, GLYHGB #### [facility] [address] [place] [address] Job Coach/Job Developer: Savage Jacob MD Magnesium [Mass/Vol] 2.8 mg/dL High 1.6 - 2 .6 mg/dL [place] Otheron 07-20-2019 Interpretation and review of laboratory results Abnormal [place] POC Glucose Fingerstickon Interpretation and review of laboratory results Abnormal [place] POC Glucose 165 mg/dL High 65 - 105 mg/dL [place] Interpretation and review of laboratory results Abnormal [place] POC Glucose 180 mg/dL High 65 - 105 mg/dL [place] Interpretation and review of laboratory results Abnormal [place] POC Glucose 190 mg/dL High 65 - 105 mg/dL [place] Interpretation and review of laboratory results Abnormal [place] POC Glucose 174 mg/dL High 65 - 105 mg/dL [place] Interpretation and review of laboratory results Abnormal [place] POC Glucose 184 mg/dL High 65 - 105 mg/dL [place] PTon 07-20-2019 INR Coag (PPP) [Relative time] 1.1 {INR} Normal [facility] Comment on above: Result Comment: Therapeutic Range: Moderate Anticoagulant Intensity: INR = 2.0-3.0 High Anticoagulant Intensity: INR = 2.5-3.5 Performed By: #### C DP, PFA, CP, GLYHGB #### [facility] [facility] [place], [place] [id number] Job Coach/Job Developer: Savage Jacob MD PT Coag (PPP) [Time] 11.7 s Normal 9.0-12.0 [facility] Comment on above: Performed By: #### C DP, PFA, CP, GLYHGB #### [facility] [address] [place] [address] Job Coach/Job Developer: Savage Jacob MD Phosphoruson 07-20-2019 Phosphate [Mass/Vol] 5.4 mg/dL High 2.6 - 4 .5 mg/dL [place] Phosphorus, Inorg.on 020 Phosphorus, Inorg. 5.4 mg/dL High 2.6-4.5 [facility] Comment on above: Performed By: #### C DP, PFA, CP, GLYHGB #### [facility] [address] [place] [address] Job Coach/Job Developer: Savage Jacob MD Protime-INRon 07-20-2019 INR Coag (PPP) [Relative time] 1.1 {INR} [place] PT Coag (PPP) [Time] 11.7 s [place] XR ABDOMEN FOR NG/OG/NE TUBE PLACEMENTon [...] Dm Marie MD 07/20/19 Final result Normal [facility], [facility], [place] APTTon 07-19-2019 aPTT Coag (Bld) [Time] 65.2 s High 20.5-30.5 [facility] Comment on above: Performed By: #### C DP, PFA, CP, GLYHGB #### [facility] [employer] [address] [place], [place] [id number] Job Coach/Job Developer: Savage Jacob MD aPTT Coag (Bld) [Time] 65.2 s High [place], [place] Interpretation and review of laboratory results Abnormal [place] aPTT Coag (Bld) [Time] 60.0 s High 20.5-30.5 [facility] Comment on above: Performed By: #### C DP, PFA, CP, GLYHGB #### [facility] [employer] [address] [place] [address] [id number] Job Coach/Job Developer: Savage Jacob MD aPTT Coag (Bld) [Time] 60.0 s [place] Interpretation and review of laboratory results Abnormal [place] aPTT Coag (Bld) [Time] 77.1 s High 20.5-30.5 [facility] Comment on above: Performed By: #### C DP, PFA, CP, GLYHGB #### [facility] [employer] [address] [place] [address] [phone] Job Coach/Job Developer: Savage Jacob MD aPTT Coag (Bld) [Time] 77.1 s [place], [place] Interpretation and review of laboratory results Abnormal [place] Arterial Blood Gas, POCon Graham Test Positive [place] FIO2 40.0 [place] Mode PRVC [place] Negative Base Excess, Art NOT REPORTED [place] O2 Device/Flow/% Adult Ventilator [place] POC HCO3 28.1 mmol/L High 21 - 28 mmol/L [place] POC O2 SAT 98 % 94 - 98 % [place] POC pCO2 39.0 [place] POC pCO2 Temp NOT REPORTED mm Hg [facility] [place] POC pH 7.465 High [place] POC pH Temp NOT REPORTED [place] POC PO2 101.3 [place] POC pO2 Temp NOT REPORTED mm Hg [place], [place] Positive Base Excess, Art 4 High [place] Pt Temp NOT REPORTED [place], [place] Sample Site Arterial Line [place], [place] TCO2 (calc), Art 29 mmol/L 22 - 29 mmol/L [place] Basic Metabolic Panelon 06-24 Anion gap [Moles/Vol] 13 mmol/L 9 - 17 mmol/L [place] Bun/Cre Ratio NOT REPORTED [place] Calcium [Mass/Vol] 8.7 mg/dL 8.6 - 10. 4 mg/dL [place] Chloride [Moles/Vol] 99 mmol/L 98 - 10 7 mmol/L [place] CO2 [Moles/Vol] 25 mmol/L 20 - 31 mmol/L [place] Creatinine [Mass/Vol] 1.67 mg/dL High 0.5 - 0.9 mg/dL [place] GFR 37 mL/min Low >60 [place] GFR Comment [place] GFR Non- 30 mL/min Low >60 [place] GFR Staging NOT REPORTED [place] Glucose [Mass/Vol] 252 mg/dL High 70 - 99 mg/dL [place] Interpretation and review of laboratory results Abnormal [place] Potassium [Moles/Vol] 5.0 mmol/L 3.7 - 5.3 mmol/L [place] Sodium [Moles/Vol] 137 mmol/L 135 - 144 mmol/L [place] Urea nitrogen [Mass/Vol] 44 mg/dL High 8 - 23 mg/dL [place] Basic Metabolic Profon 07-19 (cont.) Normal [facility] Comment on above: Result Comment: Aver age GFR for 70 or more years old: 75 mL/min/1.73sq m Chronic Kidney Disease: <60 mL/min/1.73sq m Kidney failure: <15 mL/min/1.73sq m eGFR calculated using average adult body mass. Additional eGFR calculator available at: http://www.MFG.com.com/multiple_crcl_2012.htm Performed By: #### C DP, PFA, CP, GLYHGB #### [address] [address] Job Coach/Job Developer: Savage Jacob MD Anion gap [Moles/Vol] 13 mmol/L Normal 9-17 [facility] Comment on above: Performed By: #### C DP, PFA, CP, GLYHGB #### [place] [address] Job Coach/Job Developer: Savage Jacob MD Calcium [Mass/Vol] 8.7 mg/dL Normal 8.6-10.4 [facility] Comment on above: Performed By: #### C DP, PFA, CP, GLYHGB #### [place] [address] Job Coach/Job Developer: Savage Jacob MD Chloride [Moles/Vol] 99 mmol/L Normal 98-107 [facility] Comment on above: Performed By: #### C DP, PFA, CP, GLYHGB #### [place] [address] Job Coach/Job Developer: Savage Jacob MD CO2 [Moles/Vol] 25 mmol/L Normal 20-31 [facility] Comment on above: Performed By: #### C DP, PFA, CP, GLYHGB #### [place] [address] Job Coach/Job Developer: Savage Jacob MD Creatinine [Mass/Vol] 1.67 mg/dL High 0.50-0.90 [facility] Comment on above: Performed By: #### C DP, PFA, CP, GLYHGB #### [facility] [employer] [address] [place] [address] Job Coach/Job Developer: Svaage Jacob MD GFR, Amer 37 mL/min Low >60 [facility] Comment on above: Performed By: #### C DP, PFA, CP, GLYHGB #### [facility] [employer] [address] [place] [address] Job Coach/Job Developer: Savage Jacob MD GFR,non Amer 30 mL/min Low >60 [facility] Comment on above: Performed By: #### C DP, PFA, CP, GLYHGB #### [facility] [employer] [address] [place] [address] Job Coach/Job Developer: Savage Jacob MD Glucose [Mass/Vol] 252 mg/dL High 70-99 [facility] Comment on above: Performed By: #### C DP, PFA, CP, GLYHGB #### [address] [address] Job Coach/Job Developer: Savage Jacob MD Potassium [Moles/Vol] 5.0 mmol/L Normal 3.7-5.3 [facility] Comment on above: Performed By: #### C DP, PFA, CP, GLYHGB #### [address] [address] Job Coach/Job Developer: Savage Jacob MD Sodium [Moles/Vol] 137 mmol/L Normal 135-144 [facility] Comment on above: Performed By: #### C DP, PFA, CP, GLYHGB #### [address] [address] Job Coach/Job Developer: Savage Jacob MD Urea nitrogen [Mass/Vol] 44 mg/dL High 8-23 [facility] Comment on above: Performed By: #### C DP, PFA, CP, GLYHGB #### [address] [address] Job Coach/Job Developer: Savage Jacob MD BUN/CRE Ratio NOT REPORTED Normal 9-20 [facility] Comment on above: Performed By: #### C DP, PFA, CP, GLYHGB #### [address] [address] Job Coach/Job Developer: Savage Jacob MD Staging: NOT REPORTED Normal [facility] Comment on above: Performed By: #### C DP, PFA, CP, GLYHGB #### [address] [address] Job Coach/Job Developer: Savage Jacob MD CBCon 07-19-2019 Erythrocyte distribution width (RBC) [Ratio] 15.9 % High 11.8-14.4 [facility] Comment on above: Performed By: #### C DP, PFA, CP, GLYHGB #### [address] [address] Job Coach/Job Developer: Savage Jacob MD Hematocrit (Bld) [Volume fraction] 26.6 % Low 36.3-47.1 [facility] Comment on above: Performed By: #### C DP, PFA, CP, GLYHGB #### [address] [address] Job Coach/Job Developer: Savage Jacob MD Hemoglobin (Bld) [Mass/Vol] 8.3 g/dL Low 11.9-15.1 [facility] Comment on above: Performed By: #### C DP, PFA, CP, GLYHGB #### [address] [address] Job Coach/Job Developer: Savage Jacob MD MCH (RBC) [Entitic mass] 28.7 pg Normal 25.2-33.5 [facility] Comment on above: Performed By: #### C DP, PFA, CP, GLYHGB #### [address] [address] Job Coach/Job Developer: Savage Jacob MD MCHC (RBC) [Mass/Vol] 31.2 g/dL Normal 28.4-34.8 [facility] Comment on above: Performed By: #### C DP, PFA, CP, GLYHGB #### [address] [address] Job Coach/Job Developer: Savage Jacob MD MCV (RBC) [Entitic vol] 92.0 fL Normal 82.6-102.9 [facility] Comment on above: Performed By: #### C DP, PFA, CP, GLYHGB #### [address] [address] Job Coach/Job Developer: Savage Jacob MD NRBC Automated 0.0 per 100 WBC Normal 0.0 [facility] Comment on above: Performed By: #### C DP, PFA, CP, GLYHGB #### [address] [address] Job Coach/Job Developer: Savage Jacob MD Platelet mean volume (Bld) [Entitic vol] 10.5 fL Normal 8.1-13.5 [facility] Comment on above: Performed By: #### C DP, PFA, CP, GLYHGB #### [address] [address] Job Coach/Job Developer: Savage Jacob MD Platelets (Bld) [#/Vol] 244 10*3/uL Normal 138-453 [facility] Comment on above: Performed By: #### C DP, PFA, CP, GLYHGB #### [address] [address] Job Coach/Job Developer: Savage Jacob MD RBC (Bld) [#/Vol] 2.89 10*6/uL Low 3.95-5.11 [facility] Comment on above: Performed By: #### C DP, PFA, CP, GLYHGB #### [address] [address] Job Coach/Job Developer: Savage Jacob MD WBC (Bld) [#/Vol] 19.4 10*3/uL High 3.5-11.3 [facility] Comment on above: Performed By: #### C DP, PFA, CP, GLYHGB #### [employer] [address] [place] [address] Job Coach/Job Developer: Savage Jacob MD Erythrocyte distribution width (RBC) [Ratio] 15.9 % High 11.8 - 14.4 % [place] Hematocrit (Bld) [Volume fraction] 26.6 % Low 36.3 - 47.1 % [place] Hemoglobin (Bld) [Mass/Vol] 8.3 g/dL Low 11.9 - 15.1 g/dL [place] Interpretation and review of laboratory results Abnormal [place] MCH (RBC) [Entitic mass] 28.7 pg 25.2 - 33.5 pg [place] MCHC (RBC) [Mass/Vol] 31.2 g/dL 28.4 - 34.8 g/dL [place] MCV (RBC) [Entitic vol] 92.0 fL 82.6 - 102.9 fL [place] Platelet mean volume (Bld) [Entitic vol] 10.5 fL 8.1 - 13.5 fL [place] Platelets (Bld) [#/Vol] 244 10*3/uL [place] RBC (Bld) [#/Vol] 2.89 10*6/uL Low 3.95 - 5.1 1 m/uL [place] WBC (Bld) [#/Vol] 19.4 10*3/uL [place] WBC (Bld) [#/Vol] 0.0 10*3/uL 0.0 per 10 0 WBC [place] Extubationon 07-19-2019 [place] Hematology[place] 07-19-2019 Blood product type Nom (BPU) Leukocyte Reduced Red Cell [place] Magnesiumon 07-19-2019 Magnesium [Mass/Vol] 2.5 mg/dL Normal 1.6-2.6 [facility] Comment on above: Performed By: #### C DP, PFA, CP, GLYHGB #### [employer] [address] [place] [address] Job Coach/Job Developer: Savage Jacob MD Magnesium [Mass/Vol] 2.5 mg/dL 1.6 - 2 .6 mg/dL [place] Otheron 07-19-2019 Crossmatch Result COMPATIBLE [place] Crossmatch Result INCOMPATIBLE [place] Dispense Status REL FROM ALLOC [place] Transfusion Status OK TO TRANSFUSE M [place], [place] Transfusion Status DO NOT ISSUE FOR TRANSFUSION [place] Unit Divison 0 [place], [place] Interpretation and review of laboratory results Abnormal [place] POC Glucose Fingerstickon Interpretation and review of laboratory results Abnormal [place] POC Glucose 173 mg/dL High 65 - 105 mg/dL [place] Interpretation and review of laboratory results Abnormal [place] POC Glucose 213 mg/dL High 65 - 105 mg/dL [place] Interpretation and review of laboratory results Abnormal [place] POC Glucose 211 mg/dL High 65 - 105 mg/dL [place] Interpretation and review of laboratory results Abnormal [place] POC Glucose 262 mg/dL High 65 - 105 mg/dL [place] POCT Glucoseon 07-19-2019 POC Glucose 237 mg/dL High 74 - 100 mg/dL [place] PTon 07-19-2019 INR Coag (PPP) [Relative time] 1.1 {INR} Normal [facility] Comment on above: Result Comment: Therapeutic Range: Moderate Anticoagulant Intensity: INR = 2.0-3.0 High Anticoagulant Intensity: INR = 2.5-3.5 Performed By: #### C DP, PFA, CP, GLYHGB #### [facility] [place], [place] [id number] Job Coach/Job Developer: Savage Jacob MD PT Coag (PPP) [Time] 11.1 s Normal 9.0-12.0 [facility] Comment on above: Performed By: #### C DP, PFA, CP, GLYHGB #### [facility] [employer] [address] [place] [address] Job Coach/Job Developer: Savage Jacob MD Protime-INRon 07-19-2019 INR Coag (PPP) [Relative time] 1.1 {INR} [place] PT Coag (PPP) [Time] 11.1 s [facility], [place] TYPE AND SCREENon 07-19-2019 ABO/Rh Positive [place] Antibody ID [place] Antigen Type, Patient [place], [place] Arm Band Number [id number] [place], [place] LUIS IgG Negative [place] Dispense Status TRANSFUSED [facility], [place] Expiration Date 07/19/2019,2359 [place] Unit Number [id number] [facility], [place] Unit Number [id number] [facility], [place] Unit Number [id number] [facility], [place] Unit Number [id number] [facility], [place] Unit Number [id number] [place] XR ABDOMEN FOR NG/OG/NE TUBE PLACEMENTon [...] Oscar Joshi MD 07/19/19 Final result Normal [facility] [place] APTTon 07-18-2019 aPTT Coag (Bld) [Time] 54.1 s High 20.5-30.5 [facility] Comment on above: Performed By: #### C DP, PFA, CP, GLYHGB #### [facility] [address] [place] [address] Job Coach/Job Developer: Savage Jacob MD aPTT Coag (Bld) [Time] 54.1 s High [place] Interpretation and review of laboratory results Abnormal [place] Arterial Blood Gas, POCon Graham Test NOT APPLICABLE [place], [place] FIO2 40.0 [place] Interpretation and review of laboratory results Abnormal [place] Mode PRVC [place] Negative Base Excess, Art NOT REPORTED [place] O2 Device/Flow/% Adult Ventilator [place] POC HCO3 27.5 mmol/L 21 - 28 mmol/L [place] POC O2 SAT 97 % 94 - 98 % [place] POC pCO2 38.1 [place] POC pCO2 Temp NOT REPORTED mm Hg [place] POC pH 7.467 High [place] POC pH Temp NOT REPORTED [place] POC PO2 81.0 Low [place] POC pO2 Temp NOT REPORTED mm Hg [place], [place] Positive Base Excess, Art 4 High [place], [place] Pt Temp NOT REPORTED [place] Sample Site Arterial Line [place], [place] TCO2 (calc), Art 29 mmol/L 22 - 29 mmol/L [place] Basic Metabolic Panelon 06-24 Anion gap [Moles/Vol] 16 mmol/L 9 - 17 mmol/L [place] Bun/Cre Ratio NOT REPORTED [place] Calcium [Mass/Vol] 8.8 mg/dL 8.6 - 10. 4 mg/dL [place] Chloride [Moles/Vol] 97 mmol/L Low 98 - 10 7 mmol/L [place] CO2 [Moles/Vol] 25 mmol/L 20 - 31 mmol/L [place] Creatinine [Mass/Vol] 1.68 mg/dL High 0.5 - 0.9 mg/dL [place] GFR 37 mL/min Low >60 [place] GFR Comment [place] GFR Non- 30 mL/min Low >60 [place] GFR Staging NOT REPORTED [place] Glucose [Mass/Vol] 190 mg/dL High 70 - 99 mg/dL [place] Potassium [Moles/Vol] 4.0 mmol/L 3.7 - 5.3 mmol/L [place] Sodium [Moles/Vol] 138 mmol/L 135 - 144 mmol/L [place] Urea nitrogen [Mass/Vol] 34 mg/dL High 8 - 23 mg/dL [place] Basic Metabolic Profon 07-18 (cont.) Normal [facility] Comment on above: Result Comment: Aver age GFR for 70 or more years old: 75 mL/min/1.73sq m Chronic Kidney Disease: <60 mL/min/1.73sq m Kidney failure: <15 mL/min/1.73sq m eGFR calculated using average adult body mass. Additional eGFR calculator available at: http://www.MFG.com.[employer]/multiple_crcl_2011.htm Performed By: #### C DP, PFA, CP, GLYHGB #### [employer] [address] [place] [address] Job Coach/Job Developer: Savage Jacob MD Anion gap [Moles/Vol] 16 mmol/L Normal 9-17 [facility] Comment on above: Performed By: #### C DP, PFA, CP, GLYHGB #### [facility] [place] [address] Job Coach/Job Developer: Savage Jacob MD Calcium [Mass/Vol] 8.8 mg/dL Normal 8.6-10.4 [facility] Comment on above: Performed By: #### C DP, PFA, CP, GLYHGB #### [facility] [employer] [address] [place] [address] Job Coach/Job Developer: Savage Jacob MD Chloride [Moles/Vol] 97 mmol/L Low 98-107 [facility] Comment on above: Performed By: #### C DP, PFA, CP, GLYHGB #### [facility] [employer] [address] [place] [address] Job Coach/Job Developer: Savage Jacob MD CO2 [Moles/Vol] 25 mmol/L Normal 20-31 [facility] Comment on above: Performed By: #### C DP, PFA, CP, GLYHGB #### [address] [address] Job Coach/Job Developer: Savage Jacob MD Creatinine [Mass/Vol] 1.68 mg/dL High 0.50-0.90 [facility] Comment on above: Performed By: #### C DP, PFA, CP, GLYHGB #### [facility] [employer] [address] [place] [address] Job Coach/Job Developer: Savage Jacob MD GFR, Amer 37 mL/min Low >60 [facility] Comment on above: Performed By: #### C DP, PFA, CP, GLYHGB #### [facility] [employer] [address] [place] [address] Job Coach/Job Developer: Savage Jacob MD GFR,non Amer 30 mL/min Low >60 [facility] Comment on above: Performed By: #### C DP, PFA, CP, GLYHGB #### [facility] [employer] [address] [place] [address] Job Coach/Job Developer: Savage Jacob MD Glucose [Mass/Vol] 190 mg/dL High 70-99 [facility] Comment on above: Performed By: #### C DP, PFA, CP, GLYHGB #### [facility] [address] [place] [address] Job Coach/Job Developer: Savage Jacob MD Potassium [Moles/Vol] 4.0 mmol/L Normal 3.7-5.3 [facility] Comment on above: Performed By: #### C DP, PFA, CP, GLYHGB #### [facility] [address] [place] [address] Job Coach/Job Developer: Savage Jacob MD Sodium [Moles/Vol] 138 mmol/L Normal 135-144 [facility] Comment on above: Performed By: #### C DP, PFA, CP, GLYHGB #### [facility] [employer] [address] [place] [address] Job Coach/Job Developer: Savage Jacob MD Urea nitrogen [Mass/Vol] 34 mg/dL High 8- [facility] Comment on above: Performed By: #### C DP, PFA, CP, GLYHGB #### [facility] [employer] [address] [place] [address] Job Coach/Job Developer: Savage Jacob MD BUN/CRE Ratio NOT REPORTED Normal - [facility] Comment on above: Performed By: #### C DP, PFA, CP, GLYHGB #### [facility] [employer] [address] [place] [address] Job Coach/Job Developer: Savage Jacob MD Staging: NOT REPORTED Normal [facility] Comment on above: Performed By: #### C DP, PFA, CP, GLYHGB #### [facility] [employer] [address] [place] [address] Job Coach/Job Developer: Savage Jacob MD CBCon 07-18-2019 NRBC Automated 0.5 per 100 WBC High 0.0 [facility] Comment on above: Performed By: #### C DP, PFA, CP, GLYHGB #### [address] [address] Job Coach/Job Developer: Savage Jacob MD Erythrocyte distribution width (RBC) [Ratio] 15.9 % High 11.8-14.4 [place] Comment on above: Performed By: #### C DP, PFA, CP, GLYHGB #### [address] [address] Job Coach/Job Developer: Savage Jacob MD Hematocrit (Bld) [Volume fraction] 26.3 % Low 36.3-47.1 [place] Comment on above: Performed By: #### C DP, PFA, CP, GLYHGB #### [place] [address] Job Coach/Job Developer: Savage Jacob MD Hemoglobin (Bld) [Mass/Vol] 8.4 g/dL Low 11.9-15.1 [place] Comment on above: Performed By: #### C DP, PFA, CP, GLYHGB #### [place] [address] Job Coach/Job Developer: Savage Jacob MD MCH (RBC) [Entitic mass] 29.4 pg Normal 25.2-33.5 [place] Comment on above: Performed By: #### C DP, PFA, CP, GLYHGB #### [place] [address] Job Coach/Job Developer: Savage Jacob MD MCHC (RBC) [Mass/Vol] 31.9 g/dL Normal 28.4-34.8 [place] Comment on above: Performed By: #### C DP, PFA, CP, GLYHGB #### [address] [address] Job Coach/Job Developer: Savage Jacob MD MCV (RBC) [Entitic vol] 92.0 fL Normal 82.6-102.9 [place] Comment on above: Performed By: #### C DP, PFA, CP, GLYHGB #### [facility] [employer] [address] [place] [address] Job Coach/Job Developer: Savage Jacob MD Platelet mean volume (Bld) [Entitic vol] 10.6 fL Normal 8.1-13.5 [place] Comment on above: Performed By: #### C DP, PFA, CP, GLYHGB #### [address] [address] Job Coach/Job Developer: Savage Jacob MD Platelets (Bld) [#/Vol] 246 10*3/uL Normal 138-453 [place] Comment on above: Performed By: #### C DP, PFA, CP, GLYHGB #### [address] [address] Job Coach/Job Developer: Savage Jacob MD RBC (Bld) [#/Vol] 2.86 10*6/uL Low 3.95-5.11 [place] Comment on above: Performed By: #### C DP, PFA, CP, GLYHGB #### [address] [address] Job Coach/Job Developer: Savage Jacob MD WBC (Bld) [#/Vol] 21.3 10*3/uL High 3.5-11.3 [place] Comment on above: Performed By: #### C DP, PFA, CP, GLYHGB #### [facility] [employer] [address] [place] [address] Job Coach/Job Developer: Savage Jacob MD Interpretation and review of laboratory results Abnormal [place] WBC (Bld) [#/Vol] 0.5 10*3/uL High 0.0 per 10 0 WBC [place] EKG 12 Leadon 07-18-2019 Atrial Rate 52 BPM [place] P [place] 54 degrees [place] P-R Interval 190 ms [place] Q-T Interval 460 ms [facility], [place] QRS Duration 88 ms [facility], [place] QTc Calculation (Bazett) 427 ms [facility], [place] R [place] 55 degrees [facility] [place], [place] T [place] -33 degrees [facility], [place] Ventricular Rate 52 BPM [facility] [place] [facility] [facility] [place] Atrial Rate 53 BPM [facility], [place] P [place] 62 degrees [facility], [place] P-R Interval 188 ms [facility], [place] Q-T Interval 432 ms [facility], [place] QRS Duration 86 ms [facility], [place] QTc Calculation (Bazett) 405 ms [facility], [place] R [place] 54 degrees [facility] [place], [place] T [place] -12 degrees [facility], [place] Ventricular Rate 53 BPM [facility] [place], [place] [facility] [facility], [place] Magnesiumon 07-18-2019 Magnesium [Mass/Vol] 2.3 mg/dL Normal 1.6-2.6 [facility] Comment on above: Performed By: #### C DP, PFA, CP, GLYHGB #### [facility] [address] [place] [address] Job Coach/Job Developer: Savage Jacob MD Magnesium [Mass/Vol] 2.3 mg/dL 1.6 - 2 .6 mg/dL [place] Otheron 07-18-2019 Interpretation and review of laboratory results Abnormal [place] POC Glucose Fingerstickon Interpretation and review of laboratory results Abnormal [place] POC Glucose 185 mg/dL High 65 - 105 mg/dL [place] Interpretation and review of laboratory results Abnormal [place] POC Glucose 181 mg/dL High 65 - 105 mg/dL [place] Interpretation and review of laboratory results Abnormal [place] POC Glucose 145 mg/dL High 65 - 105 mg/dL [place] Interpretation and review of laboratory results Abnormal [place] POC Glucose 153 mg/dL High 65 - 105 mg/dL [place] Interpretation and review of laboratory results Abnormal [place] POC Glucose 173 mg/dL High 65 - 105 mg/dL [place] Interpretation and review of laboratory results Abnormal [place] POC Glucose 168 mg/dL High 65 - 105 mg/dL [place] PTon 07-18-2019 INR Coag (PPP) [Relative time] 1.1 {INR} Normal [facility] Comment on above: Result Comment: Therapeutic Range: Moderate Anticoagulant Intensity: INR = 2.0-3.0 High Anticoagulant Intensity: INR = 2.5-3.5 Performed By: #### C DP, PFA, CP, GLYHGB #### [facility] [address] [place] [address] Job Coach/Job Developer: Savage Jacob MD PT Coag (PPP) [Time] 11.3 s Normal 9.0-12.0 [facility] Comment on above: Performed By: #### C DP, PFA, CP, GLYHGB #### [facility] [address] [place] [id number] Job Coach/Job Developer: Savage Jacob MD Phosphoruson 07-18-2019 Phosphate [Mass/Vol] 4.8 mg/dL High 2.6 - 4 .5 mg/dL [place] Phosphorus, Inorg.on 020 Phosphorus, Inorg. 4.8 mg/dL High 2.6-4.5 [facility] Comment on above: Performed By: #### C DP, PFA, CP, GLYHGB #### [employer] [address] [place] [id number] Job Coach/Job Developer: Savage Jacob MD Protime-INRon 07-18-2019 INR Coag (PPP) [Relative time] 1.1 {INR} [place] PT Coag (PPP) [Time] 11.3 s [place] XR CHEST PORTABLEon 07-18-19 20 XR [...] Red Sheets MD 07/18/19 Final result Normal [place], [place] APTTon 07-17-2019 aPTT Coag (Bld) [Time] 59.8 s High 20.5-30.5 [facility] Comment on above: Performed By: #### C DP, PFA, CP, GLYHGB #### [facility] [employer] [address] [place] [address] 10174 Job Coach/Job Developer: Savage Jacob MD aPTT Coag (Bld) [Time] 59.8 s [place], [place] Interpretation and review of laboratory results Abnormal [place] Arterial Blood Gas, POCon Graham Test NOT REPORTED [place] FIO2 NOT REPORTED [place] Mode NOT REPORTED [place] Negative Base Excess, Art NOT REPORTED [place] O2 Device/Flow/% NOT REPORTED [place] POC HCO3 30.0 mmol/L High 21 - 28 mmol/L [place] POC O2 SAT 96 % 94 - 98 % [place] POC pCO2 36.0 [place] POC pCO2 Temp NOT REPORTED mm Hg [place] POC pH 7.529 High [place] POC pH Temp NOT REPORTED [place] POC PO2 69.6 Low [place] POC pO2 Temp NOT REPORTED mm Hg [place], [place] Positive Base Excess, Art 7 High [place] Pt Temp NOT REPORTED [place] Sample Site Arterial Line [place] TCO2 (calc), Art 31 mmol/L High 22 - 29 mmol/L [place] Basic Metabolic Panelon 06-24 Anion gap [Moles/Vol] 13 mmol/L 9 - 17 mmol/L [place] Bun/Cre Ratio NOT REPORTED [place] Calcium [Mass/Vol] 8.5 mg/dL Low 8.6 - 10. 4 mg/dL [place] Chloride [Moles/Vol] 99 mmol/L 98 - 10 7 mmol/L [place] CO2 [Moles/Vol] 25 mmol/L 20 - 31 mmol/L [place] Creatinine [Mass/Vol] 1.34 mg/dL High 0.5 - 0.9 mg/dL [place] GFR 47 mL/min Low >60 [place] GFR Comment [place] GFR Non- 39 mL/min Low >60 [place] GFR Staging NOT REPORTED [place] Glucose [Mass/Vol] 234 mg/dL High 70 - 99 mg/dL [place] Interpretation and review of laboratory results Abnormal [place] Potassium [Moles/Vol] 4.1 mmol/L 3.7 - 5.3 mmol/L [place] Sodium [Moles/Vol] 137 mmol/L 135 - 144 mmol/L [place] Urea nitrogen [Mass/Vol] 33 mg/dL High 8 - 23 mg/dL [place] Basic Metabolic Profon 07-17 (cont.) Normal [facility] Comment on above: Result Comment: Aver age GFR for 70 or more years old: 75 mL/min/1.73sq m Chronic Kidney Disease: <60 mL/min/1.73sq m Kidney failure: <15 mL/min/1.73sq m eGFR calculated using average adult body mass. Additional eGFR calculator available at: http://www.MFG.com.[employer]/multiple_crcl_2012.htm Performed By: #### C DP, PFA, CP, GLYHGB #### [address] [address] Job Coach/Job Developer: Savage Jacob MD Anion gap [Moles/Vol] 13 mmol/L Normal 9-17 [facility] Comment on above: Performed By: #### C DP, PFA, CP, GLYHGB #### [address] [address] Job Coach/Job Developer: Savage Jacob MD Calcium [Mass/Vol] 8.5 mg/dL Low 8.6-10.4 [facility] Comment on above: Performed By: #### C DP, PFA, CP, GLYHGB #### [facility] [employer] [address] [place] [address]83 Job Coach/Job Developer: Savage Jacob MD Chloride [Moles/Vol] 99 mmol/L Normal 98-107 [facility] Comment on above: Performed By: #### C DP, PFA, CP, GLYHGB #### [facility] [employer] [address] [place] [address] 7[address]99 Job Coach/Job Developer: Savage Jacob MD CO2 [Moles/Vol] 25 mmol/L Normal 20-31 [facility] Comment on above: Performed By: #### C DP, PFA, CP, GLYHGB #### [facility] [employer] [address] [place] [address]245 Job Coach/Job Developer: Savage Jacob MD Creatinine [Mass/Vol] 1.34 mg/dL High 0.50-0.90 [facility] Comment on above: Performed By: #### C DP, PFA, CP, GLYHGB #### [facility] [employer] [address] [place] [address] Job Coach/Job Developer: Savage Jacob MD GFR, Amer 47 mL/min Low >60 [facility] Comment on above: Performed By: #### C DP, PFA, CP, GLYHGB #### [facility] [address] [place] [address] 12358 Job Coach/Job Developer: Savage Jacob MD GFR,non Amer 39 mL/min Low >60 [facility] Comment on above: Performed By: #### C DP, PFA, CP, GLYHGB #### [facility] [address] [place] [address] 8[address]24 Job Coach/Job Developer: Savage Jacob MD Glucose [Mass/Vol] 234 mg/dL High 70-99 [facility] Comment on above: Performed By: #### C DP, PFA, CP, GLYHGB #### [facility] [employer] [address] [place] [address] 99637 Job Coach/Job Developer: Savage Jacob MD Potassium [Moles/Vol] 4.1 mmol/L Normal 3.7-5.3 [facility] Comment on above: Performed By: #### C DP, PFA, CP, GLYHGB #### [address] [address] Job Coach/Job Developer: Savage Jacob MD Sodium [Moles/Vol] 137 mmol/L Normal 135-144 [facility] Comment on above: Performed By: #### C DP, PFA, CP, GLYHGB #### [facility] [address] [place] [address] 05569 Job Coach/Job Developer: Savage Jacob MD Urea nitrogen [Mass/Vol] 33 mg/dL High 8-23 [facility] Comment on above: Performed By: #### C DP, PFA, CP, GLYHGB #### [facility] [employer] [address] [place] [address] 62502 Job Coach/Job Developer: Savage Jacob MD BUN/CRE Ratio NOT REPORTED Normal 9-20 [facility] Comment on above: Performed By: #### C DP, PFA, CP, GLYHGB #### [facility] [employer] [address] [place] [address] 90452 Job Coach/Job Developer: Savage Jacob MD Staging: NOT REPORTED Normal [facility] Comment on above: Performed By: #### C DP, PFA, CP, GLYHGB #### [facility] [employer] [address] [place] [address] 92563 Job Coach/Job Developer: Savage Jacob MD CBCon 07-17-2019 Erythrocyte distribution width (RBC) [Ratio] 15.4 % High 11.8-14.4 [facility] Comment on above: Performed By: #### C DP, PFA, CP, GLYHGB #### [facility] [employer] [address] [place] [address] 73918 Job Coach/Job Developer: Savage Jacob MD Hematocrit (Bld) [Volume fraction] 24.1 % Low 36.3-47.1 [facility] Comment on above: Performed By: #### C DP, PFA, CP, GLYHGB #### [facility] [employer] [address] [place] [address] 66780 Job Coach/Job Developer: Savage Jacob MD Hemoglobin (Bld) [Mass/Vol] 7.8 g/dL Low 11.9-15.1 [facility] Comment on above: Performed By: #### C DP, PFA, CP, GLYHGB #### [facility] [employer] [address] [place] [address] 71319 Job Coach/Job Developer: Savage Jacob MD MCH (RBC) [Entitic mass] 29.3 pg Normal 25.2-33.5 [facility] Comment on above: Performed By: #### C DP, PFA, CP, GLYHGB #### [facility] [employer] [address] [place] [address] 968[address] Job Coach/Job Developer: Savage Jacob MD MCHC (RBC) [Mass/Vol] 32.4 g/dL Normal 28.4-34.8 [facility] Comment on above: Performed By: #### C DP, PFA, CP, GLYHGB #### [address] [address] Job Coach/Job Developer: Savage Jacob MD MCV (RBC) [Entitic vol] 90.6 fL Normal 82.6-102.9 [facility] Comment on above: Performed By: #### C DP, PFA, CP, GLYHGB #### [address] [address] Job Coach/Job Developer: Savage Jacob MD NRBC Automated 0.9 per 100 WBC High 0.0 [facility] Comment on above: Performed By: #### C DP, PFA, CP, GLYHGB #### [address] [address] Job Coach/Job Developer: Savage Jacob MD Platelet mean volume (Bld) [Entitic vol] 10.5 fL Normal 8.1-13.5 [facility] Comment on above: Performed By: #### C DP, PFA, CP, GLYHGB #### [address] [address] Job Coach/Job Developer: Savage Jacob MD Platelets (Bld) [#/Vol] 216 10*3/uL Normal 138-453 [facility] Comment on above: Performed By: #### C DP, PFA, CP, GLYHGB #### [address] [address] Job Coach/Job Developer: Savage Jacob MD RBC (Bld) [#/Vol] 2.66 10*6/uL Low 3.95-5.11 [facility] Comment on above: Performed By: #### C DP, PFA, CP, GLYHGB #### [address] [id number] Job Coach/Job Developer: Savage Jacob MD WBC (Bld) [#/Vol] 19.2 10*3/uL High 3.5-11.3 [facility] Comment on above: Performed By: #### C DP, PFA, CP, GLYHGB #### [place] [address] [place], [place] [phone] Job Coach/Job Developer: Savage Jacob MD Erythrocyte distribution width (RBC) [Ratio] 15.4 % High 11.8 - 14.4 % [place] Hematocrit (Bld) [Volume fraction] 24.1 % Low 36.3 - 47.1 % [place] Hemoglobin (Bld) [Mass/Vol] 7.8 g/dL Low 11.9 - 15.1 g/dL [place] Interpretation and review of laboratory results Abnormal [place] MCH (RBC) [Entitic mass] 29.3 pg 25.2 - 33.5 pg [place] MCHC (RBC) [Mass/Vol] 32.4 g/dL 28.4 - 34.8 g/dL [place] MCV (RBC) [Entitic vol] 90.6 fL 82.6 - 102.9 fL [place] Platelet mean volume (Bld) [Entitic vol] 10.5 fL 8.1 - 13.5 fL [place] Platelets (Bld) [#/Vol] 216 10*3/uL [place] RBC (Bld) [#/Vol] 2.66 10*6/uL Low 3.95 - 5.1 1 m/uL [place] WBC (Bld) [#/Vol] 19.2 10*3/uL [place] WBC (Bld) [#/Vol] 0.9 10*3/uL High 0.0 per 10 0 WBC [place] Cult,Bloodon 07-17-2019 Cult,Blood Specimen Description .BLOOD Special Requests L HAND 6CC Culture NO GROWTH 6 DAYS Report Status FINAL 07/17/2019 Normal [facility] Comment on above: Performed By: #### C DP, PFA, CP, GLYHGB #### [employer] [address] [place] [address] [phone] Job Coach/Job Developer: Savage Jacob MD Cult,Blood Specimen Description .BLOOD Special Requests R HAND 3CC Culture NO GROWTH 6 DAYS Report Status FINAL 07/17/2019 [facility] Comment on above: Performed By: #### C DP, PFA, CP, GLYHGB #### [employer] [address] [place] [address] [phone] Job Coach/Job Developer: Savage Jacob MD Cult,Respiratoryon 0 Cult,Respiratory Specimen Description .SUCTIONED SPUTUM Special Requests NOT REPORTED Direct Exam < 10 EPITHELIAL CELLS/LPF >25 NEUTROPHILS/LPF PREDOMINANT ORGANISM: GRAM NEGATIVE RODS MIXED BACTERIAL MORPHOTYPES ALSO PRESENT ON GRAM STAIN. Culture YEAST, NOT SILVIO ALBICANS OR SILVIO DUBLINIENSIS HEAVY GROWTH NORMAL RESPIRATORY ROSEANNA SCANT GOWTH Report Status FINAL 07/17/2019 [facility] Comment on above: Performed By: #### C DP, PFA, CP, GLYHGB #### [employer] [address] [place] [address]497 Job Coach/Job Developer: Savage Jacob MD Culture, Blood 1on 0 Special Requests L HAND 6CC [employer] [place]- [place], [place] Special Requests R HAND 3CC [facility] [place] Culture, Respiratoryon 07-17 Culture YEAST, NOT SILVIO ALBICANS OR SILVIO DUBLINIENSIS HEAVY GROWTH Abnormal [facility] [place] Culture NORMAL RESPIRATORY ROSEANNA SCANT GOWTH [place] Direct Exam Negative Abnormal [place] Direct Exam >25 NEUTROPHILS/LPF [facility] [place] Direct Exam MIXED BACTERIAL MORPHOTYPES ALSO PRESENT ON GRAM STAIN. Abnormal [place] Direct Exam < 10 EPITHELIAL CELLS/LPF [place] Interpretation and review of laboratory results Abnormal [place] Special Requests NOT REPORTED [place] Specimen Description .SUCTIONED SPUTUM [place] Magnesiumon 07-17-2019 Magnesium [Mass/Vol] 2.1 mg/dL Normal 1.6-2.6 [facility] Comment on above: Performed By: #### C DP, PFA, CP, GLYHGB #### [facility] [address] [place] [address] Job Coach/Job Developer: Savage Jacob MD Magnesium [Mass/Vol] 2.1 mg/dL 1.6 - 2 .6 mg/dL [place] Otheron 07-17-2019 Culture NO GROWTH 6 DAYS [place] Specimen Description .BLOOD [place] Interpretation and review of laboratory results Abnormal [place] POC Glucose Fingerstickon Interpretation and review of laboratory results Abnormal [place] POC Glucose 194 mg/dL High 65 - 105 mg/dL [place] Interpretation and review of laboratory results Abnormal [place] POC Glucose 165 mg/dL High 65 - 105 mg/dL [place] Interpretation and review of laboratory results Abnormal [place] POC Glucose 228 mg/dL High 65 - 105 mg/dL [place] Interpretation and review of laboratory results Abnormal [place] POC Glucose 248 mg/dL High 65 - 105 mg/dL [place] POCT Glucoseon 07-17-2019 POC Glucose 246 mg/dL High 74 - 100 mg/dL [place] PTon 07-17-2019 INR Coag (PPP) [Relative time] 1.1 {INR} Normal [facility] Comment on above: Result Comment: Therapeutic Range: Moderate Anticoagulant Intensity: INR = 2.0-3.0 High Anticoagulant Intensity: INR = 2.5-3.5 Performed By: #### C DP, PFA, CP, GLYHGB #### [facility] [employer] [address] [place] [address] Job Coach/Job Developer: Savage Jacob MD PT Coag (PPP) [Time] 11.4 s Normal 9.0-12.0 [facility] Comment on above: Performed By: #### C DP, PFA, CP, GLYHGB #### [employer] [address] [place] [address] Job Coach/Job Developer: Savage Jacob MD Protime-INRon 07-17-2019 INR Coag (PPP) [Relative time] 1.1 {INR} [place] PT Coag (PPP) [Time] 11.4 s [place] XR CHEST PORTABLEon 07-17-19 XR CHEST [...] Morro Wheeler MD 07/17/19 Final result Normal [place], [place] APTTon 07-16-2019 aPTT Coag (Bld) [Time] 57.8 s High 20.5-30.5 [facility] Comment on above: Performed By: #### C DP, PFA, CP, GLYHGB #### [facility] [address] [place] [address] Job Coach/Job Developer: Savage Jacob MD aPTT Coag (Bld) [Time] 57.8 s [place] Interpretation and review of laboratory results Abnormal [place] aPTT Coag (Bld) [Time] 49.3 s High 20.5-30.5 [facility] Comment on above: Performed By: #### C DP, PFA, CP, GLYHGB #### [facility] [employer] [address] [place] [address] Job Coach/Job Developer: Savage Jacob MD aPTT Coag (Bld) [Time] 49.3 s High [place] Interpretation and review of laboratory results Abnormal [place] aPTT Coag (Bld) [Time] 46.7 s High 20.5-30.5 [facility] Comment on above: Performed By: #### C DP, PFA, CP, GLYHGB #### [facility] [employer] [address] [place] [address] Job Coach/Job Developer: Savage Jacob MD aPTT Coag (Bld) [Time] 46.7 s High [place] Interpretation and review of laboratory results Abnormal [place] Arterial Blood Gas, POCon Graham Test NOT APPLICABLE [place], [place] FIO2 40.0 [place] Mode PRVC [place] Negative Base Excess, Art NOT REPORTED [place] O2 Device/Flow/% Adult Ventilator [place] POC HCO3 30.5 mmol/L High 21 - 28 mmol/L [place] POC O2 SAT 97 % 94 - 98 % [place] POC pCO2 38.3 [place] POC pCO2 Temp NOT REPORTED mm Hg [facility] [place] POC pH 7.509 High [place] POC pH Temp NOT REPORTED [facility] [place] POC PO2 80.5 Low [place] POC pO2 Temp NOT REPORTED mm Hg [place], [place] Positive Base Excess, Art 7 High [place], [place] Pt Temp NOT REPORTED [place] Sample Site Arterial Line [place], [place] TCO2 (calc), Art 32 mmol/L High 22 - 29 mmol/L [place] BLOOD BANK SPECIMENon 2019 Blood Bank Specimen NOT REPORTED [place] Basic Metabolic Panelon - Anion gap [Moles/Vol] 14 mmol/L 9 - 17 mmol/L [place] Bun/Cre Ratio NOT REPORTED [place] Calcium [Mass/Vol] 8.4 mg/dL Low 8.6 - 10. 4 mg/dL [place] Chloride [Moles/Vol] 99 mmol/L 98 - 10 7 mmol/L [place] CO2 [Moles/Vol] 26 mmol/L 20 - 31 mmol/L [place] Creatinine [Mass/Vol] 1.26 mg/dL High 0.5 - 0.9 mg/dL [place] GFR 51 mL/min Low >60 [place] GFR Comment [place] GFR Non- 42 mL/min Low >60 [place] GFR Staging NOT REPORTED [place] Glucose [Mass/Vol] 259 mg/dL High 70 - 99 mg/dL [place] Interpretation and review of laboratory results Abnormal [place] Potassium [Moles/Vol] 3.9 mmol/L 3.7 - 5.3 mmol/L [place] Sodium [Moles/Vol] 139 mmol/L 135 - 144 mmol/L [place] Urea nitrogen [Mass/Vol] 26 mg/dL High 8 - 23 mg/dL [place] Basic Metabolic Profon 07-16 (cont.) Normal [facility] Comment on above: Result Comment: Aver age GFR for 70 or more years old: 75 mL/min/1.73sq m Chronic Kidney Disease: <60 mL/min/1.73sq m Kidney failure: <15 mL/min/1.73sq m eGFR calculated using average adult body mass. Additional eGFR calculator available at: http://www.[employer]/multiple_crcl_2012.htm Performed By: #### C DP, PFA, CP, GLYHGB #### [facility] [employer] [facility] [place] [address] Job Coach/Job Developer: Savage Jacob MD Anion gap [Moles/Vol] 14 mmol/L Normal 9-17 [facility] Comment on above: Performed By: #### C DP, PFA, CP, GLYHGB #### [facility] [employer] [address] [place] [address] Job Coach/Job Developer: Savage Jacob MD Calcium [Mass/Vol] 8.4 mg/dL Low 8.6-10.4 [facility] Comment on above: Performed By: #### C DP, PFA, CP, GLYHGB #### [facility] [employer] [address] [place] [address] Job Coach/Job Developer: Savage Jacob MD Chloride [Moles/Vol] 99 mmol/L Normal 98-107 [facility] Comment on above: Performed By: #### C DP, PFA, CP, GLYHGB #### [facility] [employer] [address] [place] [address] Job Coach/Job Developer: Savage Jacob MD CO2 [Moles/Vol] 26 mmol/L Normal 20-31 [facility] Comment on above: Performed By: #### C DP, PFA, CP, GLYHGB #### [facility] [employer] [address] [place] [address] Job Coach/Job Developer: Savage Jacob MD Creatinine [Mass/Vol] 1.26 mg/dL High 0.50-0.90 [facility] Comment on above: Performed By: #### C DP, PFA, CP, GLYHGB #### [facility] [employer] [address] [place] [address] Job Coach/Job Developer: Savage Jacob MD GFR, Amer 51 mL/min Low >60 [facility] Comment on above: Performed By: #### C DP, PFA, CP, GLYHGB #### [facility] [employer] [address] [place] [address] Job Coach/Job Developer: Savage Jacob MD GFR,non Amer 42 mL/min Low >60 [facility] Comment on above: Performed By: #### C DP, PFA, CP, GLYHGB #### [address] [address] Job Coach/Job Developer: Savage Jacob MD Glucose [Mass/Vol] 259 mg/dL High 70-99 [facility] Comment on above: Performed By: #### C DP, PFA, CP, GLYHGB #### [address] [address] Job Coach/Job Developer: Savage Jacob MD Potassium [Moles/Vol] 3.9 mmol/L Normal 3.7-5.3 [facility] Comment on above: Performed By: #### C DP, PFA, CP, GLYHGB #### [address] [address] Job Coach/Job Developer: Savage Jacob MD Sodium [Moles/Vol] 139 mmol/L Normal 135-144 [facility] Comment on above: Performed By: #### C DP, PFA, CP, GLYHGB #### [address] [address] Job Coach/Job Developer: Savage Jacob MD Urea nitrogen [Mass/Vol] 26 mg/dL High 8-23 [facility] Comment on above: Performed By: #### C DP, PFA, CP, GLYHGB #### [address] [address] Job Coach/Job Developer: Savage Jacob MD BUN/CRE Ratio NOT REPORTED Normal 9-20 [facility] Comment on above: Performed By: #### C DP, PFA, CP, GLYHGB #### [address] [address] Job Coach/Job Developer: Savage Jacob MD Staging: NOT REPORTED Normal [facility] Comment on above: Performed By: #### C DP, PFA, CP, GLYHGB #### [facility] [employer] [address] [place] [address] Job Coach/Job Developer: Savage Jacob MD Blood Bank Specimenon 2019 Blood Bank Specimen NOT REPORTED Normal [facility] CBCon 07-16-2019 Erythrocyte distribution width (RBC) [Ratio] 14.9 % High 11.8-14.4 [facility] Comment on above: Performed By: #### C DP, PFA, CP, GLYHGB #### [facility] [employer] [address] [place] [address] Job Coach/Job Developer: Savage Jacob MD Hematocrit (Bld) [Volume fraction] 22.7 % Low 36.3-47.1 [facility] Comment on above: Performed By: #### C DP, PFA, CP, GLYHGB #### [address] [address] Job Coach/Job Developer: Savage Jacob MD Hemoglobin (Bld) [Mass/Vol] 7.0 g/dL Critically low 11.9-15.1 [facility] Comment on above: Performed By: #### C DP, PFA, CP, GLYHGB #### [facility] [employer] [address] [place] [address] Job Coach/Job Developer: Savage Jacob MD MCH (RBC) [Entitic mass] 28.1 pg Normal 25.2-33.5 [facility] Comment on above: Performed By: #### C DP, PFA, CP, GLYHGB #### [facility] [employer] [address] [place] [address] Job Coach/Job Developer: Savage Jacob MD MCHC (RBC) [Mass/Vol] 30.8 g/dL Normal 28.4-34.8 [facility] Comment on above: Performed By: #### C DP, PFA, CP, GLYHGB #### [facility] [address] [place] [address] Job Coach/Job Developer: Savage Jacob MD MCV (RBC) [Entitic vol] 91.2 fL Normal 82.6-102.9 [facility] Comment on above: Performed By: #### C DP, PFA, CP, GLYHGB #### [address] [address] Job Coach/Job Developer: Savage Jacob MD NRBC Automated 0.4 per 100 WBC High 0.0 [facility] Comment on above: Performed By: #### C DP, PFA, CP, GLYHGB #### [address] [address] Job Coach/Job Developer: Savage Jacob MD Platelet mean volume (Bld) [Entitic vol] 10.1 fL Normal 8.1-13.5 [facility] Comment on above: Performed By: #### C DP, PFA, CP, GLYHGB #### [facility] [employer] [address] [place] [address] Job Coach/Job Developer: Savage Jacob MD Platelets (Bld) [#/Vol] 218 10*3/uL Normal 138-453 [facility] Comment on above: Performed By: #### C DP, PFA, CP, GLYHGB #### [facility] [employer] [address] [place] [address] Job Coach/Job Developer: Savage Jacob MD RBC (Bld) [#/Vol] 2.49 10*6/uL Low 3.95-5.11 [facility] Comment on above: Performed By: #### C DP, PFA, CP, GLYHGB #### [address] [address] Job Coach/Job Developer: Savage Jacob MD WBC (Bld) [#/Vol] 19.4 10*3/uL High 3.5-11.3 [facility] Comment on above: Performed By: #### C DP, PFA, CP, GLYHGB #### [facility] [address] [place] [address] Job Coach/Job Developer: Savage Jacob MD Erythrocyte distribution width (RBC) [Ratio] 14.9 % High 11.8 - 14.4 % [place] Hematocrit (Bld) [Volume fraction] 22.7 % Low 36.3 - 47.1 % [place] Hemoglobin (Bld) [Mass/Vol] 7.0 g/dL Critically low 11.9 - 15.1 g/dL [place] Interpretation and review of laboratory results Abnormal [place] MCH (RBC) [Entitic mass] 28.1 pg 25.2 - 33.5 pg [place] MCHC (RBC) [Mass/Vol] 30.8 g/dL 28.4 - 34.8 g/dL [place] MCV (RBC) [Entitic vol] 91.2 fL 82.6 - 102.9 fL [place] Platelet mean volume (Bld) [Entitic vol] 10.1 fL 8.1 - 13.5 fL [place] Platelets (Bld) [#/Vol] 218 10*3/uL [place] RBC (Bld) [#/Vol] 2.49 10*6/uL Low 3.95 - 5.1 1 m/uL [place] WBC (Bld) [#/Vol] 0.4 10*3/uL High 0.0 per 10 0 WBC [place] WBC (Bld) [#/Vol] 19.4 10*3/uL [place] Inf Dis Interventionon 07-16 Intervention: Expand Empiric Coverage Normal [facility] Comment on above: Performed By: #### C DP, PFA, CP, GLYHGB #### [facility] [address] [place], [place] [id number] Job Coach/Job Developer: Savage Jacob MD Infectious Disease Intervent ionon 07-16-2019 Intervention Expand Empiric Coverage [place] MRI BRAIN W WO CONTRASTon MRI [...] facet hypertrophic changes are noted. There is [id number] right greater than left foraminal narrowing. C4-5: [...] Jaimee Avila MD 07/16/19 Final result Normal [facility] MRI CERVICAL SPINE WO CONTRA STon 07-16-2019 [...] facet hypertrophic changes are noted. There is [id number] right greater than left foraminal narrowing. C4-5: [...] Jaimee Avila MD 07/16/19 Final result Normal [facility] Magnesiumon 07-16-2019 Magnesium [Mass/Vol] 2.0 mg/dL Normal 1.6-2.6 [facility] Comment on above: Performed By: #### C DP, PFA, CP, GLYHGB #### [facility] [address] [place], [place] [phone] Job Coach/Job Developer: Savage Jacob MD Magnesium [Mass/Vol] 2.0 mg/dL 1.6 - 2 .6 mg/dL [place] Otheron 07-16-2019 [place] Interpretation and review of laboratory results Abnormal [place] POC Glucose Fingerstickon Interpretation and review of laboratory results Abnormal [place] Glucose 157 mg/dL High 65 - 105 mg/dL [place] Interpretation and review of laboratory results Abnormal [place] P[place] Glucose 158 mg/dL High 65 - 105 mg/dL [place] Interpretation and review of laboratory results Abnormal [place] POC Glucose 232 mg/dL High 65 - 105 mg/dL [place] Interpretation and review of laboratory results Abnormal [place] P[place] Glucose 240 mg/dL High 65 - 105 mg/dL [place] POCT Glucoseon 07-16-2019 POC Glucose 269 mg/dL High 74 - 100 mg/dL [place] PTon 07-16-2019 INR Coag (PPP) [Relative time] 1.1 {INR} Normal [facility] Comment on above: Result Comment: Therapeutic Range: Moderate Anticoagulant Intensity: INR = 2.0-3.0 High Anticoagulant Intensity: INR = 2.5-3.5 Performed By: #### C DP, PFA, CP, GLYHGB #### [facility] [address] [place], [place] [phone] Job Coach/Job Developer: Savage Jacob MD PT Coag (PPP) [Time] 11.9 s Normal 9.0-12.0 [facility] Comment on above: Performed By: #### C DP, PFA, CP, GLYHGB #### [facility] [employer] [facility] [place], [place] [address]608 Job Coach/Job Developer: Savage Jacob MD Phosphoruson 07-16-2019 Phosphate [Mass/Vol] 3.0 mg/dL 2.6 - 4 .5 mg/dL [place] Phosphorus, In[facility]on 020 Phosphorus, Inorg. 3.0 mg/dL Normal 2.6-4.5 [facility] Comment on above: Performed By: #### C DP, PFA, CP, GLYHGB #### [facility] [employer] [facility] [place], [place] [phone] Job Coach/Job Developer: Savage Jacob MD Protime-INRon 07-16-2019 INR Coag (PPP) [Relative time] 1.1 {INR} [place] PT Coag (PPP) [Time] 11.9 s [place] Type + Screenon 07-16-2019 Type + Screen Sample Expiration 07/19/2019,2359 Arm Band Number BE [id number] ABO/Rh(D) A POSITIVE Antibody Screen POSITIVE Antibody Ident Anti-E Present Anti-c Present LUIS, Anti-IgG Viky Serum NEGATIVE Antigen Type,Patient Negative for E Antigen Negative for Cortes(B) Antigen Negative for c Antigen Unit Number [id number] Blood Component Type Leukocyte Reduced Red Cell Unit Division 00 Status of Unit REL FROM ALLOC Transfusion Status DO NOT ISSUE FOR TRANSFUSION Crossmatch Result INCOMPATIBLE Unit Number [id number] Blood Component Type Leukocyte Reduced Red Cell Unit Division 00 Status of Unit REL FROM ALLOC Transfusion Status DO NOT ISSUE FOR TRANSFUSION Crossmatch Result INCOMPATIBLE Unit Number [id number] Blood Component Type Leukocyte Reduced Red Cell Unit Division 00 Status of Unit TRANSFUSED Transfusion Status OK TO TRANSFUSE Crossmatch Result COMPATIBLE Unit Number [id number] Blood Component Type Leukocyte Reduced Red Cell Unit Division 00 Status of Unit REL FROM ALLOC Transfusion Status OK TO TRANSFUSE Crossmatch Result COMPATIBLE Unit Number [id number] Blood Component Type Leukocyte Reduced Red Cell Unit Division 00 Status of Unit REL FROM ALLOC Transfusion Status OK TO TRANSFUSE Crossmatch Result COMPATIBLE Normal [facility] Comment on above: Performed By: #### C DP, PFA, CP, GLYHGB #### [place] [id number] [place] [id number] Job Coach/Job Developer: Savage Jacob MD XR CHEST PORTABLEon 07-16-19 20 XR CHEST PORTABLE EXAMINATION: ONE XRAY [...] Cyril Warner MD 07/16/19 Final result Normal [facility] XR CHEST PORTABLE EXAMINATION: ONE XRAY VIEW [...] Caro Hutchinson MD 07/16/19 Final result Normal [facility], [facility], [facility], [facility], [facility], [facility], [place] AMMONIAon 07-15-2019 Ammonia (P) [Mass/Vol] 41 umol/L 11 - 51 umol/L [place] APTTon 07-15-2019 aPTT Coag (Bld) [Time] 49.1 s High 20.5-30.5 [facility] Comment on above: Performed By: #### C DP, PFA, CP, GLYHGB #### [facility] [address] [place] [address] [id number] Job Coach/Job Developer: Savage Jacob MD aPTT Coag (Bld) [Time] s Critically high 20.5-30. 5 [facility] Comment on above: Performed By: #### C DP, PFA, CP, GLYHGB #### [facility] [address] [place] [address] [phone] Job Coach/Job Developer: Savage Jacob MD aPTT Coag (Bld) [Time] 49.1 s [place] Interpretation and review of laboratory results Abnormal [place] aPTT Coag (Bld) [Time] s Critically high [place] Interpretation and review of laboratory results Abnormal [place] aPTT Coag (Bld) [Time] 52.6 s High 20.5-30.5 [facility] Comment on above: Performed By: #### C DP, PFA, CP, GLYHGB #### [facility] [employer] [facility] [place] [address] Job Coach/Job Developer: Savage Jacob MD aPTT Coag (Bld) [Time] 52.6 s [place] Interpretation and review of laboratory results Abnormal [place] Ammoniaon 07-15-2019 Ammonia (P) [Mass/Vol] 41 umol/L Normal 11-51 [facility] Comment on above: Performed By: #### C DP, PFA, CP, GLYHGB #### [facility] [address] [place], [place] [phone] Job Coach/Job Developer: Savage Jacob MD Arterial Blood Gas, POCon Graham Test NOT APPLICABLE [place], [place] FIO2 40.0 [place] Interpretation and review of laboratory results Abnormal [place] Mode PRVC [place] Negative Base Excess, Art NOT REPORTED [place] O2 Device/Flow/% Adult Ventilator [place] POC HCO3 31.4 mmol/L High 21 - 28 mmol/L [place] O2 SAT 96 % 94 - 98 % [place] pCO2 41.2 [place] pCO2 Temp NOT REPORTED mm Hg [place] POC pH 7.491 High [place] POC pH Temp NOT REPORTED [place] P[place] PO2 72.4 Low [place] POC pO2 Temp NOT REPORTED mm Hg [place], [place] Positive Base Excess, Art 7 High [place] Pt Temp NOT REPORTED [place] Sample Site Arterial Line [place] TCO2 (calc), Art 33 mmol/L High 22 - 29 mmol/L [place] BASIC METABOLIC PANELon 06-24 Anion gap [Moles/Vol] 11 mmol/L 9 - 17 mmol/L [place] Bun/Cre Ratio NOT REPORTED [place] Calcium [Mass/Vol] 7.9 mg/dL Low 8.6 - 10. 4 mg/dL [place] Chloride [Moles/Vol] 99 mmol/L 98 - 10 7 mmol/L [place] CO2 [Moles/Vol] 27 mmol/L 20 - 31 mmol/L [place] Creatinine [Mass/Vol] 1.22 mg/dL High 0.5 - 0.9 mg/dL [place] GFR 53 mL/min Low >60 [place] GFR Comment [place] GFR Non- 44 mL/min Low >60 [place] GFR Staging NOT REPORTED [place] Glucose [Mass/Vol] 307 mg/dL High 70 - 99 mg/dL [place] Interpretation and review of laboratory results Abnormal [place] Potassium [Moles/Vol] 3.5 mmol/L Low 3.7 - 5.3 mmol/L [place] Sodium [Moles/Vol] 137 mmol/L 135 - 144 mmol/L [place] Urea nitrogen [Mass/Vol] 23 mg/dL 8 - 23 mg/dL [place] Basic Metabolic Panelon - Anion gap [Moles/Vol] 13 mmol/L 9 - 17 mmol/L [place] Bun/Cre Ratio NOT REPORTED [place] Calcium [Mass/Vol] 8.5 mg/dL Low 8.6 - 10. 4 mg/dL [place] Chloride [Moles/Vol] 98 mmol/L 98 - 10 7 mmol/L [place] CO2 [Moles/Vol] 28 mmol/L 20 - 31 mmol/L [place] Creatinine [Mass/Vol] 1.17 mg/dL High 0.5 - 0.9 mg/dL [place] GFR 55 mL/min Low >60 [place] GFR Comment [place] GFR Non- 46 mL/min Low >60 [place] GFR Staging NOT REPORTED [place] Glucose [Mass/Vol] 294 mg/dL High 70 - 99 mg/dL [place] Interpretation and review of laboratory results Abnormal [place] Potassium [Moles/Vol] 3.5 mmol/L Low 3.7 - 5.3 mmol/L [place] Sodium [Moles/Vol] 139 mmol/L 135 - 144 mmol/L [place] Urea nitrogen [Mass/Vol] 23 mg/dL 8 - 23 mg/dL [place] Basic Metabolic Profon 07-15 (cont.) Normal [facility] Comment on above: Result Comment: Aver age GFR for 70 or more years old: 75 mL/min/1.73sq m Chronic Kidney Disease: <60 mL/min/1.73sq m Kidney failure: <15 mL/min/1.73sq m eGFR calculated using average adult body mass. Additional eGFR calculator available at: http://www.Cognea/multiple_crcl_2011.htm Performed By: #### C DP, PFA, CP, GLYHGB #### [facility] [address] [place] [phone] Job Coach/Job Developer: Savage Jacob MD Anion gap [Moles/Vol] 11 mmol/L Normal 9-17 [facility] Comment on above: Performed By: #### C DP, PFA, CP, GLYHGB #### [facility] [address] [place] [address] Job Coach/Job Developer: Savage Jacob MD Calcium [Mass/Vol] 7.9 mg/dL Low 8.6-10.4 [facility] Comment on above: Performed By: #### C DP, PFA, CP, GLYHGB #### [facility] [employer] [address] [place] [address] Job Coach/Job Developer: Savage Jacob MD Chloride [Moles/Vol] 99 mmol/L Normal 98-107 [facility] Comment on above: Performed By: #### C DP, PFA, CP, GLYHGB #### [facility] [address] [place] [id number] Job Coach/Job Developer: Savage Jacob MD CO2 [Moles/Vol] 27 mmol/L Normal 20-31 [facility] Comment on above: Performed By: #### C DP, PFA, CP, GLYHGB #### [address] [address] Job Coach/Job Developer: Savage Jacob MD Creatinine [Mass/Vol] 1.22 mg/dL High 0.50-0.90 [facility] Comment on above: Performed By: #### C DP, PFA, CP, GLYHGB #### [address] [address] Job Coach/Job Developer: Savage Jacob MD GFR, Amer 53 mL/min Low >60 [facility] Comment on above: Performed By: #### C DP, PFA, CP, GLYHGB #### [address] [address] Job Coach/Job Developer: Savage Jacob MD GFR,non Amer 44 mL/min Low >60 [facility] Comment on above: Performed By: #### C DP, PFA, CP, GLYHGB #### [facility] [employer] [address] [place] [address] Job Coach/Job Developer: Savage Jacob MD Glucose [Mass/Vol] 307 mg/dL High 70-99 [facility] Comment on above: Performed By: #### C DP, PFA, CP, GLYHGB #### [facility] [address] [place] [address] Job Coach/Job Developer: Savage Jacob MD Potassium [Moles/Vol] 3.5 mmol/L Low 3.7-5.3 [facility] Comment on above: Performed By: #### C DP, PFA, CP, GLYHGB #### [facility] [employer] [address] [place] [address] Job Coach/Job Developer: Savage Jacob MD Sodium [Moles/Vol] 137 mmol/L Normal 135-144 [facility] Comment on above: Performed By: #### C DP, PFA, CP, GLYHGB #### [address] [address] Job Coach/Job Developer: Savage Jacob MD Urea nitrogen [Mass/Vol] 23 mg/dL Normal 8-23 [facility] Comment on above: Performed By: #### C DP, PFA, CP, GLYHGB #### [address] [address] Job Coach/Job Developer: Savage Jacob MD BUN/CRE Ratio NOT REPORTED Normal -20 [facility] Comment on above: Performed By: #### C DP, PFA, CP, GLYHGB #### [address] [address] Job Coach/Job Developer: Savage Jacob MD Staging: NOT REPORTED Normal [facility] Comment on above: Performed By: #### C DP, PFA, CP, GLYHGB #### [address] [address] Job Coach/Job Developer: Saavge Jacob MD (cont.) Normal [facility] Comment on above: Result Comment: Aver age GFR for 70 or more years old: 75 mL/min/1.73sq m Chronic Kidney Disease: <60 mL/min/1.73sq m Kidney failure: <15 mL/min/1.73sq m eGFR calculated using average adult body mass. Additional eGFR calculator available at: http://www.MFG.com.com/multiple_crcl_2012.htm Performed By: #### C DP, PFA, CP, GLYHGB #### [address] [address] Job Coach/Job Developer: Savage Jacob MD Anion gap [Moles/Vol] 13 mmol/L Normal 9-17 [facility] Comment on above: Performed By: #### C DP, PFA, CP, GLYHGB #### [facility] [employer] [address] [place] [address] Job Coach/Job Developer: Savage Jacob MD Calcium [Mass/Vol] 8.5 mg/dL Low 8.6-10.4 [facility] Comment on above: Performed By: #### C DP, PFA, CP, GLYHGB #### [facility] [employer] [address] [place] [address] Job Coach/Job Developer: Savage Jacob MD Chloride [Moles/Vol] 98 mmol/L Normal 98-107 [facility] Comment on above: Performed By: #### C DP, PFA, CP, GLYHGB #### [facility] [employer] [address] [place] [address] Job Coach/Job Developer: Savage Jacob MD CO2 [Moles/Vol] 28 mmol/L Normal 20-31 [facility] Comment on above: Performed By: #### C DP, PFA, CP, GLYHGB #### [facility] [employer] [address] [place] [address] Job Coach/Job Developer: Savage Jacob MD Creatinine [Mass/Vol] 1.17 mg/dL High 0.50-0.90 [facility] Comment on above: Performed By: #### C DP, PFA, CP, GLYHGB #### [facility] [employer] [address] [place] [address] Job Coach/Job Developer: Savage Jacob MD GFR, Amer 55 mL/min Low >60 [facility] Comment on above: Performed By: #### C DP, PFA, CP, GLYHGB #### [facility] [employer] [address] [place] [address] Job Coach/Job Developer: Savage Jacob MD GFR,non Amer 46 mL/min Low >60 [facility] Comment on above: Performed By: #### C DP, PFA, CP, GLYHGB #### [facility] [employer] [address] [place] [address] Job Coach/Job Developer: Savage Jacob MD Glucose [Mass/Vol] 294 mg/dL High 70-99 [facility] Comment on above: Performed By: #### C DP, PFA, CP, GLYHGB #### [facility] [employer] [address] [place] [address] Job Coach/Job Developer: Savage Jacob MD Potassium [Moles/Vol] 3.5 mmol/L Low 3.7-5.3 [facility] Comment on above: Performed By: #### C DP, PFA, CP, GLYHGB #### [address] [address] Job Coach/Job Developer: Savage Jacob MD Sodium [Moles/Vol] 139 mmol/L Normal 135-144 [facility] Comment on above: Performed By: #### C DP, PFA, CP, GLYHGB #### [facility] [employer] [address] [place] [address] Job Coach/Job Developer: Savage Jacob MD Urea nitrogen [Mass/Vol] 23 mg/dL Normal 8-23 [facility] Comment on above: Performed By: #### C DP, PFA, CP, GLYHGB #### [address] [address] Job Coach/Job Developer: Savage Jacob MD BUN/CRE Ratio NOT REPORTED Normal 9-20 [facility] Comment on above: Performed By: #### C DP, PFA, CP, GLYHGB #### [facility] [employer] [address] [place] [address] Job Coach/Job Developer: Savage Jacob MD Staging: NOT REPORTED Normal [facility] Comment on above: Performed By: #### C DP, PFA, CP, GLYHGB #### [facility] [employer] [address] [place] [address] Job Coach/Job Developer: Savage Jacob MD CBCon 07-15-2019 Erythrocyte distribution width (RBC) [Ratio] 15.0 % High 11.8-14.4 [facility] Comment on above: Performed By: #### C DP, PFA, CP, GLYHGB #### [address] [address] Job Coach/Job Developer: Savage Jacob MD Hematocrit (Bld) [Volume fraction] 23.8 % Low 36.3-47.1 [facility] Comment on above: Performed By: #### C DP, PFA, CP, GLYHGB #### [place] [address] Job Coach/Job Developer: Savage Jacob MD Hemoglobin (Bld) [Mass/Vol] 7.3 g/dL Low 11.9-15.1 [facility] Comment on above: Performed By: #### C DP, PFA, CP, GLYHGB #### [place] [address] Job Coach/Job Developer: Savage Jacob MD MCH (RBC) [Entitic mass] 29.0 pg Normal 25.2-33.5 [facility] Comment on above: Performed By: #### C DP, PFA, CP, GLYHGB #### [place] [address] Job Coach/Job Developer: Savage Jacob MD MCHC (RBC) [Mass/Vol] 30.7 g/dL Normal 28.4-34.8 [facility] Comment on above: Performed By: #### C DP, PFA, CP, GLYHGB #### [address] [address] Job Coach/Job Developer: Savage Jacob MD MCV (RBC) [Entitic vol] 94.4 fL Normal 82.6-102.9 [facility] Comment on above: Performed By: #### C DP, PFA, CP, GLYHGB #### [address] [address] Job Coach/Job Developer: Savage Jacob MD NRBC Automated 0.2 per 100 WBC High 0.0 [facility] Comment on above: Performed By: #### C DP, PFA, CP, GLYHGB #### [address] [address] Job Coach/Job Developer: Savage Jacob MD Platelet mean volume (Bld) [Entitic vol] 10.6 fL Normal 8.1-13.5 [facility] Comment on above: Performed By: #### C DP, PFA, CP, GLYHGB #### [address] [address] Job Coach/Job Developer: Savage Jacob MD Platelets (Bld) [#/Vol] 233 10*3/uL Normal 138-453 [facility] Comment on above: Performed By: #### C DP, PFA, CP, GLYHGB #### [address] [address] Job Coach/Job Developer: Savage Jacob MD RBC (Bld) [#/Vol] 2.52 10*6/uL Low 3.95-5.11 [facility] Comment on above: Performed By: #### C DP, PFA, CP, GLYHGB #### [address] [address] Job Coach/Job Developer: Savage Jacob MD WBC (Bld) [#/Vol] 22.0 10*3/uL High 3.5-11.3 [facility] Comment on above: Performed By: #### C DP, PFA, CP, GLYHGB #### [address] [address] Job Coach/Job Developer: Savage Jacob MD Erythrocyte distribution width (RBC) [Ratio] 15.0 % High 11.8 - 14.4 % [place] Hematocrit (Bld) [Volume fraction] 23.8 % Low 36.3 - 47.1 % [place] Hemoglobin (Bld) [Mass/Vol] 7.3 g/dL Low 11.9 - 15.1 g/dL [place] Interpretation and review of laboratory results Abnormal [place] MCH (RBC) [Entitic mass] 29.0 pg 25.2 - 33.5 pg [place] MCHC (RBC) [Mass/Vol] 30.7 g/dL 28.4 - 34.8 g/dL [place] MCV (RBC) [Entitic vol] 94.4 fL 82.6 - 102.9 fL [place] Platelet mean volume (Bld) [Entitic vol] 10.6 fL 8.1 - 13.5 fL [place] Platelets (Bld) [#/Vol] 233 10*3/uL [place] RBC (Bld) [#/Vol] 2.52 10*6/uL Low 3.95 - 5.1 1 m/uL [place] WBC (Bld) [#/Vol] 22.0 10*3/uL High [place] WBC (Bld) [#/Vol] 0.2 10*3/uL High 0.0 per 10 0 WBC [place] Erythrocyte distribution width (RBC) [Ratio] 15.1 % High 11.8-14.4 [facility] Comment on above: Performed By: #### C DP, PFA, CP, GLYHGB #### [facility] [address] [place] [address] Job Coach/Job Developer: Savage Jacob MD Hematocrit (Bld) [Volume fraction] 23.1 % Low 36.3-47.1 [facility] Comment on above: Performed By: #### C DP, PFA, CP, GLYHGB #### [facility] [address] [place] [address] Job Coach/Job Developer: Savage Jacob MD Hemoglobin (Bld) [Mass/Vol] 7.2 g/dL Low 11.9-15.1 [facility] Comment on above: Performed By: #### C DP, PFA, CP, GLYHGB #### [address] [address] Job Coach/Job Developer: Savage Jacob MD MCH (RBC) [Entitic mass] 28.5 pg Normal 25.2-33.5 [facility] Comment on above: Performed By: #### C DP, PFA, CP, GLYHGB #### [address] [address] Job Coach/Job Developer: Savage Jacob MD MCHC (RBC) [Mass/Vol] 31.2 g/dL Normal 28.4-34.8 [facility] Comment on above: Performed By: #### C DP, PFA, CP, GLYHGB #### [place] [address] Job Coach/Job Developer: Savage Jacob MD MCV (RBC) [Entitic vol] 91.3 fL Normal 82.6-102.9 [facility] Comment on above: Performed By: #### C DP, PFA, CP, GLYHGB #### [address] [address] Job Coach/Job Developer: Savage Jacob MD NRBC Automated 0.3 per 100 WBC High 0.0 [facility] Comment on above: Performed By: #### C DP, PFA, CP, GLYHGB #### [address] [address] Job Coach/Job Developer: Savage Jacob MD Platelet mean volume (Bld) [Entitic vol] 9.9 fL Normal 8.1-13.5 [facility] Comment on above: Performed By: #### C DP, PFA, CP, GLYHGB #### [address] [address] Job Coach/Job Developer: Savage Jacob MD Platelets (Bld) [#/Vol] 224 10*3/uL Normal 138-453 [facility] Comment on above: Performed By: #### C DP, PFA, CP, GLYHGB #### [facility] [address] [place], [place] [phone] Job Coach/Job Developer: Savage Jacob MD RBC (Bld) [#/Vol] 2.53 10*6/uL Low 3.95-5.11 [facility] Comment on above: Performed By: #### C DP, PFA, CP, GLYHGB #### [facility] [employer] [address] [place], [place] [phone] Job Coach/Job Developer: Savage Jacob MD WBC (Bld) [#/Vol] 22.4 10*3/uL High 3.5-11.3 [facility] Comment on above: Performed By: #### C DP, PFA, CP, GLYHGB #### [facility] [employer] [address] [place], [place] [phone] Job Coach/Job Developer: Savage Jacob MD Erythrocyte distribution width (RBC) [Ratio] 15.1 % High 11.8 - 14.4 % [place] Hematocrit (Bld) [Volume fraction] 23.1 % Low 36.3 - 47.1 % [place] Hemoglobin (Bld) [Mass/Vol] 7.2 g/dL Low 11.9 - 15.1 g/dL [place] Interpretation and review of laboratory results Abnormal [place] MCH (RBC) [Entitic mass] 28.5 pg 25.2 - 33.5 pg [place] MCHC (RBC) [Mass/Vol] 31.2 g/dL 28.4 - 34.8 g/dL [place] MCV (RBC) [Entitic vol] 91.3 fL 82.6 - 102.9 fL [place] Platelet mean volume (Bld) [Entitic vol] 9.9 fL 8.1 - 13.5 fL [place] Platelets (Bld) [#/Vol] 224 10*3/uL [place] RBC (Bld) [#/Vol] 2.53 10*6/uL Low 3.95 - 5.1 1 m/uL [place] WBC (Bld) [#/Vol] 22.4 10*3/uL [place] WBC (Bld) [#/Vol] 0.3 10*3/uL High 0.0 per 10 0 WBC [place] CORTISOLon 07-15-2019 Cortisol 21.9 ug/dL High 2.7 - 18.4 ug/dL [place] Cortisol Collection Info NOT REPORTED [place] Interpretation and review of laboratory results Abnormal [place] Cortisolon 07-15-2019 Cortisol 21.9 ug/dL High 2.7-18.4 [facility] Comment on above: Result Comment: Cortisol Reference Range: AM 6.0-18.4 PM 2.7-10.5 Performed By: #### C DP, PFA, CP, GLYHGB #### [facility] [employer] [address] [place] [address] Job Coach/Job Developer: Savage Jacob MD Collection Info. NOT REPORTED Normal [facility] Comment on above: Performed By: #### C DP, PFA, CP, GLYHGB #### [facility] [employer] [address] [place] [address] Job Coach/Job Developer: Savage Jacob MD EKG 12 Leadon 07-15-2019 Atrial Rate 83 BPM [place] P [place] 59 degrees [place] P-R Interval 176 ms [place] Q-T Interval 496 ms [place] QRS Duration 92 ms [place] QTc Calculation (Bazett) 582 ms [facility], [place] R [place] 45 degrees [facility], [place] T [place] 106 degrees [place] Ventricular Rate 83 BPM [facility], [facility], [facility], [place] Atrial Rate 108 BPM [place] Q-T Interval 334 ms [place] QRS Duration 92 ms [place] QTc Calculation (Bazett) 447 ms [place] R [place] 53 degrees [place] T [place] -129 degrees [place] Ventricular Rate 108 BPM [facility] [place], [place], [place] Magnesiumon 07-15-2019 Magnesium [Mass/Vol] 2.0 mg/dL Normal 1.6-2.6 [facility] Comment on above: Performed By: #### C DP, PFA, CP, GLYHGB #### [facility] [address] [place] [address] Job Coach/Job Developer: Savage Jacob MD Magnesium [Mass/Vol] 2.0 mg/dL 1.6 - 2 .6 mg/dL [place] POC Glucose Fingerstickon Interpretation and review of laboratory results Abnormal [place] POC Glucose 193 mg/dL High 65 - 105 mg/dL [place] Interpretation and review of laboratory results Abnormal [place] POC Glucose 234 mg/dL High 65 - 105 mg/dL [place] Interpretation and review of laboratory results Abnormal [place] POC Glucose 155 mg/dL High 65 - 105 mg/dL [place] Interpretation and review of laboratory results Abnormal [place] POC Glucose 308 mg/dL High 65 - 105 mg/dL [place] PTon 07-15-2019 INR Coag (PPP) [Relative time] 1.1 {INR} Normal [facility] Comment on above: Result Comment: Therapeutic Range: Moderate Anticoagulant Intensity: INR = 2.0-3.0 High Anticoagulant Intensity: INR = 2.5-3.5 Performed By: #### C DP, PFA, CP, GLYHGB #### [facility] [address] [place] [id number] Job Coach/Job Developer: Savage Jacob MD PT Coag (PPP) [Time] 11.6 s Normal 9.0-12.0 [facility] Comment on above: Performed By: #### C DP, PFA, CP, GLYHGB #### [facility] [address] [place] [address] [id number] Job Coach/Job Developer: Savage Jacob MD Protime-INRon 07-15-2019 INR Coag (PPP) [Relative time] 1.1 {INR} [place] PT Coag (PPP) [Time] 11.6 s [place] T3, FREEon 07-15-2019 Free T3 [Mass/Vol] 1.27 pg/mL Low 2.02 - 4. 43 pg/mL [place] Interpretation and review of laboratory results Abnormal [place] T3, Freeon 07-15-2019 Free T3 [Mass/Vol] 1.27 pg/mL Low 2.02-4.43 [facility] Comment on above: Performed By: #### C DP, PFA, CP, GLYHGB #### [employer] [address] [place] [address] [phone] Job Coach/Job Developer: Savage Jacob MD T4, FREEon 07-15-2019 Thyroxine, Free 1.02 ng/dL 0.93 - 1.7 ng/dL [place] TSH without Reflexon 020 TSH Qn 4.27 m[IU]/L [place] Thyroid Stim. Horm.on 2019 TSH Qn 4.27 m[IU]/L Normal 0.30-5.00 [facility] Comment on above: Performed By: #### C DP, PFA, CP, GLYHGB #### [facility] [address] [place] [address] [phone] Job Coach/Job Developer: Savage Jacob MD Thyroxine, Freeon 07-15-2019 Thyroxine, Free 1.02 ng/dL Normal 0.93-1.70 [facility] Comment on above: Performed By: #### C DP, PFA, CP, GLYHGB #### [employer] [address] [place] [address] [phone] Job Coach/Job Developer: Savage Jacob MD APTTon 07-14-2019 aPTT Coag (Bld) [Time] 55.5 s High 20.5-30.5 [facility] Comment on above: Performed By: #### C DP, PFA, CP, GLYHGB #### [facility] [employer] [address] [place] [address] [phone] Job Coach/Job Developer: Savage Jacob MD aPTT Coag (Bld) [Time] 55.5 s [place], [place] Interpretation and review of laboratory results Abnormal [place] aPTT Coag (Bld) [Time] 50.9 s High 20.5-30.5 [facility] Comment on above: Performed By: #### C DP, PFA, CP, GLYHGB #### [facility] [employer] [address] [place], [place] [phone] Job Coach/Job Developer: Savage Jacob MD aPTT Coag (Bld) [Time] 50.9 s [place] Interpretation and review of laboratory results Abnormal [place] aPTT Coag (Bld) [Time] 59.0 s High 20.5-30.5 [facility] Comment on above: Performed By: #### C DP, PFA, CP, GLYHGB #### [address] [address] Job Coach/Job Developer: Savage Jacob MD aPTT Coag (Bld) [Time] 59.0 s [place] Interpretation and review of laboratory results Abnormal [place] Arterial Blood Gas, POCon Graham Test NOT APPLICABLE [place], [place] FIO2 40.0 [place] Mode PRVC [place] Negative Base Excess, Art NOT REPORTED [place] O2 Device/Flow/% Adult Ventilator [place] POC HCO3 32.3 mmol/L High 21 - 28 mmol/L [place] POC O2 SAT 94 % 94 - 98 % [place] POC pCO2 44.2 [place] POC pCO2 Temp NOT REPORTED mm Hg [place] POC pH 7.472 High [place] POC pH Temp NOT REPORTED [place] POC PO2 66.5 Low [place] POC pO2 Temp NOT REPORTED mm Hg [place] Positive Base Excess, Art 8 High [place] Pt Temp NOT REPORTED [place] Sample Site Arterial Line [place] TCO2 (calc), Art 34 mmol/L High 22 - 29 mmol/L [place] Graham Test NOT APPLICABLE [place] FIO2 40.0 [place] Interpretation and review of laboratory results Abnormal [place] Mode PRVC [place] Negative Base Excess, Art NOT REPORTED [place] O2 Device/Flow/% Adult Ventilator [place] POC HCO3 33.5 mmol/L High 21 - 28 mmol/L [place] POC O2 SAT 94 % 94 - 98 % [place] POC pCO2 48.2 High [place] POC pCO2 Temp NOT REPORTED mm Hg [place] POC pH 7.450 [place] POC pH Temp NOT REPORTED [place] POC PO2 70.8 Low [place] POC pO2 Temp NOT REPORTED mm Hg [place], [place] Positive Base Excess, Art 8 High [place] Pt Temp NOT REPORTED [place] Sample Site Arterial Line [place] TCO2 (calc), Art 35 mmol/L High 22 - 29 mmol/L [place] Basic Metabolic Panelon - Anion gap [Moles/Vol] 14 mmol/L 9 - 17 mmol/L [place] Bun/Cre Ratio NOT REPORTED [place] Calcium [Mass/Vol] 8.1 mg/dL Low 8.6 - 10. 4 mg/dL [place] Chloride [Moles/Vol] 103 mmol/L 98 - 10 7 mmol/L [place] CO2 [Moles/Vol] 27 mmol/L 20 - 31 mmol/L [place] Creatinine [Mass/Vol] 1.16 mg/dL High 0.5 - 0.9 mg/dL [place] GFR 56 mL/min Low >60 [place] GFR Comment [place] GFR Non- 46 mL/min Low >60 [place] GFR Staging NOT REPORTED [place] Glucose [Mass/Vol] 239 mg/dL High 70 - 99 mg/dL [place] Interpretation and review of laboratory results Abnormal [place] Potassium [Moles/Vol] 3.5 mmol/L Low 3.7 - 5.3 mmol/L [place] Sodium [Moles/Vol] 144 mmol/L 135 - 144 mmol/L [place] Urea nitrogen [Mass/Vol] 22 mg/dL 8 - 23 mg/dL [place] Basic Metabolic Profon 07-14 (cont.) Normal [facility] Comment on above: Result Comment: Aver age GFR for 70 or more years old: 75 mL/min/1.73sq m Chronic Kidney Disease: <60 mL/min/1.73sq m Kidney failure: <15 mL/min/1.73sq m eGFR calculated using average adult body mass. Additional eGFR calculator available at: http://www.MFG.com.[employer]/multiple_crcl_2012.htm Performed By: #### C DP, PFA, CP, GLYHGB #### [employer] [address] [place] [phone] Job Coach/Job Developer: Savage Jacob MD Anion gap [Moles/Vol] 14 mmol/L Normal 9-17 [facility] Comment on above: Performed By: #### C DP, PFA, CP, GLYHGB #### [employer] [address] [place] [address] [phone] Job Coach/Job Developer: Savage Jacob MD Calcium [Mass/Vol] 8.1 mg/dL Low 8.6-10.4 [facility] Comment on above: Performed By: #### C DP, PFA, CP, GLYHGB #### [facility] [address] [place] [phone] Job Coach/Job Developer: Savage Jacob MD Chloride [Moles/Vol] 103 mmol/L Normal 98-107 [facility] Comment on above: Performed By: #### C DP, PFA, CP, GLYHGB #### [facility] [employer] [address] [place] [phone] Job Coach/Job Developer: Savage Jacob MD CO2 [Moles/Vol] 27 mmol/L Normal 20-31 [facility] Comment on above: Performed By: #### C DP, PFA, CP, GLYHGB #### [facility] [employer] [address] [place] [phone] Job Coach/Job Developer: Savage Jacob MD Creatinine [Mass/Vol] 1.16 mg/dL High 0.50-0.90 [facility] Comment on above: Performed By: #### C DP, PFA, CP, GLYHGB #### [facility] [address] [place] [address] [phone] Job Coach/Job Developer: Savage Jacob MD GFR, Amer 56 mL/min Low >60 [facility] Comment on above: Performed By: #### C DP, PFA, CP, GLYHGB #### [facility] [address] [place] [phone] Job Coach/Job Developer: Savage Jacob MD GFR,non Amer 46 mL/min Low >60 [facility] Comment on above: Performed By: #### C DP, PFA, CP, GLYHGB #### [facility] [address] [place] [address] [phone] Job Coach/Job Developer: Savage Jacob MD Glucose [Mass/Vol] 239 mg/dL High 70-99 [facility] Comment on above: Performed By: #### C DP, PFA, CP, GLYHGB #### [facility] [employer] [address] [place] [address] [phone] Job Coach/Job Developer: Savage Jacob MD Potassium [Moles/Vol] 3.5 mmol/L Low 3.7-5.3 [facility] Comment on above: Performed By: #### C DP, PFA, CP, GLYHGB #### [facility] [employer] [address] [place] [address] [phone] Job Coach/Job Developer: Savage Jacob MD Sodium [Moles/Vol] 144 mmol/L Normal 135-144 [facility] Comment on above: Performed By: #### C DP, PFA, CP, GLYHGB #### [facility] [employer] [address] [place] [address] [phone] Job Coach/Job Developer: Savage Jacob MD Urea nitrogen [Mass/Vol] 22 mg/dL Normal 8-23 [facility] Comment on above: Performed By: #### C DP, PFA, CP, GLYHGB #### [facility] [employer] [address] [place] [address] [phone] Job Coach/Job Developer: Savage Jacob MD BUN/CRE Ratio NOT REPORTED Normal 9-20 [facility] Comment on above: Performed By: #### C DP, PFA, CP, GLYHGB #### [facility] [employer] [address] [place] [address] [phone] Job Coach/Job Developer: Savage Jacob MD Staging: NOT REPORTED Normal [facility] Comment on above: Performed By: #### C DP, PFA, CP, GLYHGB #### [facility] [employer] [address] [place] [address] [phone] Job Coach/Job Developer: Savage Jacob MD CBCon 07-14-2019 Erythrocyte distribution width (RBC) [Ratio] 15.2 % High 11.8-14.4 [facility] Comment on above: Performed By: #### C DP, PFA, CP, GLYHGB #### [address] [address] Job Coach/Job Developer: Savage Jacob MD Hematocrit (Bld) [Volume fraction] 28.9 % Low 36.3-47.1 [facility] Comment on above: Performed By: #### C DP, PFA, CP, GLYHGB #### [address] [address] Job Coach/Job Developer: Savage Jacob MD Hemoglobin (Bld) [Mass/Vol] 9.0 g/dL Low 11.9-15.1 [facility] Comment on above: Performed By: #### C DP, PFA, CP, GLYHGB #### [place] [address] Job Coach/Job Developer: Savage Jacob MD MCH (RBC) [Entitic mass] 28.7 pg Normal 25.2-33.5 [facility] Comment on above: Performed By: #### C DP, PFA, CP, GLYHGB #### [address] [address] Job Coach/Job Developer: Savage Jacob MD MCHC (RBC) [Mass/Vol] 31.1 g/dL Normal 28.4-34.8 [facility] Comment on above: Performed By: #### C DP, PFA, CP, GLYHGB #### [facility] [employer] [address] [place] [address] 96291 Job Coach/Job Developer: Savage Jacob MD MCV (RBC) [Entitic vol] 92.0 fL Normal 82.6-102.9 [facility] Comment on above: Performed By: #### C DP, PFA, CP, GLYHGB #### [address] [address] Job Coach/Job Developer: Savage Jacob MD NRBC Automated 0.3 per 100 WBC High 0.0 [facility] Comment on above: Performed By: #### C DP, PFA, CP, GLYHGB #### [address] [address] Job Coach/Job Developer: Savage Jacob MD Platelet mean volume (Bld) [Entitic vol] 9.4 fL Normal 8.1-13.5 [facility] Comment on above: Performed By: #### C DP, PFA, CP, GLYHGB #### [facility] [employer] [address] [place] [address] 55062 Job Coach/Job Developer: Savage Jacob MD Platelets (Bld) [#/Vol] 219 10*3/uL Normal 138-453 [facility] Comment on above: Performed By: #### C DP, PFA, CP, GLYHGB #### [address] [address] Job Coach/Job Developer: Savage Jacob MD RBC (Bld) [#/Vol] 3.14 10*6/uL Low 3.95-5.11 [facility] Comment on above: Performed By: #### C DP, PFA, CP, GLYHGB #### [address] [address] Job Coach/Job Developer: Savage Jacob MD WBC (Bld) [#/Vol] 18.9 10*3/uL High 3.5-11.3 [facility] Comment on above: Performed By: #### C DP, PFA, CP, GLYHGB #### [facility] [employer] [address] [place] [phone] Job Coach/Job Developer: Savage Jacob MD Erythrocyte distribution width (RBC) [Ratio] 15.2 % High 11.8 - 14.4 % [place] Hematocrit (Bld) [Volume fraction] 28.9 % Low 36.3 - 47.1 % [place] Hemoglobin (Bld) [Mass/Vol] 9.0 g/dL Low 11.9 - 15.1 g/dL [place] Interpretation and review of laboratory results Abnormal [place] MCH (RBC) [Entitic mass] 28.7 pg 25.2 - 33.5 pg [place] MCHC (RBC) [Mass/Vol] 31.1 g/dL 28.4 - 34.8 g/dL [place] MCV (RBC) [Entitic vol] 92.0 fL 82.6 - 102.9 fL [place] Platelet mean volume (Bld) [Entitic vol] 9.4 fL 8.1 - 13.5 fL [place] Platelets (Bld) [#/Vol] 219 10*3/uL [place] RBC (Bld) [#/Vol] 3.14 10*6/uL Low 3.95 - 5.1 1 m/uL [place] WBC (Bld) [#/Vol] 0.3 10*3/uL High 0.0 per 10 0 WBC [place] WBC (Bld) [#/Vol] 18.9 10*3/uL [place] K (Potassium)on 07-14-2019 Potassium [Moles/Vol] 3.2 mmol/L Low 3.7-5.3 [facility] Comment on above: Performed By: #### C DP, PFA, CP, GLYHGB #### [facility] [employer] [address] [place] [address] [phone] Job Coach/Job Developer: Savage Jacob MD Magnesiumon 07-14-2019 Magnesium [Mass/Vol] 2.0 mg/dL Normal 1.6-2.6 [facility] Comment on above: Performed By: #### C DP, PFA, CP, GLYHGB #### [facility] [place], [place] [phone] Job Coach/Job Developer: Savage Jacob MD Magnesium [Mass/Vol] 2.0 mg/dL 1.6 - 2 .6 mg/dL [place] Otheron 07-14-2019 Interpretation and review of laboratory results Abnormal [place] POC Glucose Fingerstickon Interpretation and review of laboratory results Abnormal [place] POC Glucose 225 mg/dL High 65 - 105 mg/dL [place] Interpretation and review of laboratory results Abnormal [place] POC Glucose 293 mg/dL High 65 - 105 mg/dL [place] Interpretation and review of laboratory results Abnormal [place] POC Glucose 286 mg/dL High 65 - 105 mg/dL [place] Interpretation and review of laboratory results Abnormal [place] POC Glucose 245 mg/dL High 65 - 105 mg/dL [place] POCT Glucoseon 07-14-2019 POC Glucose 354 mg/dL High 74 - 100 mg/dL [place] POTASSIUMon 07-14-2019 Interpretation and review of laboratory results Abnormal [place] Potassium [Moles/Vol] 3.2 mmol/L Low 3.7 - 5.3 mmol/L [place] PTon 07-14-2019 INR Coag (PPP) [Relative time] 1.1 {INR} Normal [facility] Comment on above: Result Comment: Therapeutic Range: Moderate Anticoagulant Intensity: INR = 2.0-3.0 High Anticoagulant Intensity: INR = 2.5-3.5 Performed By: #### C DP, PFA, CP, GLYHGB #### [facility] [employer] [address] [place] [phone] Job Coach/Job Developer: Savage Jacob MD PT Coag (PPP) [Time] 11.1 s Normal 9.0-12.0 [facility] Comment on above: Performed By: #### C DP, PFA, CP, GLYHGB #### [facility] [employer] [address] [place] [phone] Job Coach/Job Developer: Savage Jacob MD Protime-INRon 07-14-2019 INR Coag (PPP) [Relative time] 1.1 {INR} [place] PT Coag (PPP) [Time] 11.1 s [place] XR CHEST PORTABLEon 07-14-19 20 XR [...] Kaylen Ying MD 07/14/19 Final result Normal [place] APTTon 07-13-2019 aPTT Coag (Bld) [Time] 39.9 s High 20.5-30.5 [facility] Comment on above: Performed By: #### C DP, PFA, CP, GLYHGB #### [facility] [employer] [address] [place] [phone] Job Coach/Job Developer: Savage Jacob MD aPTT Coag (Bld) [Time] 39.9 s [place] Interpretation and review of laboratory results Abnormal [place] aPTT Coag (Bld) [Time] 56.3 s High 20.5-30.5 [facility] Comment on above: Result Comment: ADDE D ON Performed By: #### C DP, PFA, CP, GLYHGB #### [facility] [employer] [address] [place] [phone] Job Coach/Job Developer: Savage Jacob MD aPTT Coag (Bld) [Time] 56.3 s [place] Interpretation and review of laboratory results Abnormal [place] Anion Gap (Calc) POCon 07-13 Anion gap [Moles/Vol] 10 mmol/L 7 - 16 mmol/L [place] Anion gap [Moles/Vol] 10 mmol/L 7 - 16 mmol/L [place] Anti-Thy Peroxidaseon 2019 Anti-Thy Peroxidase 35.7 IU/mL High 0.0-35.0 [facility] Comment on above: Performed By: #### C DP, PFA, CP, GLYHGB #### [facility] [address] [place] [address] Job Coach/Job Developer: Savage Jacob MD Arterial Blood Gas, POCon Graham Test Positive [place] FIO2 40.0 [place] Interpretation and review of laboratory results Abnormal [place] Mode [place], [place] Negative Base Excess, Art NOT REPORTED [place] O2 Device/Flow/% Adult Ventilator [place] POC HCO3 32.8 mmol/L High 21 - 28 mmol/L [place] POC O2 SAT 98 % 94 - 98 % [place] POC pCO2 50.1 High [place] POC pCO2 Temp NOT REPORTED mm Hg [place] POC pH 7.423 [place] POC pH Temp NOT REPORTED [place] POC PO2 98.2 [place] POC pO2 Temp NOT REPORTED mm Hg [place], [place] Positive Base Excess, Art 8 High [place] Pt Temp NOT REPORTED [place] Sample Site Arterial Line [place], [place] TCO2 (calc), Art 34 mmol/L High 22 - 29 mmol/L [place] Graham Test NOT APPLICABLE [place], [place] FIO2 40.0 [place] Mode [place] Negative Base Excess, Art NOT REPORTED [place] O2 Device/Flow/% Adult Ventilator [place] POC HCO3 32.0 mmol/L High 21 - 28 mmol/L [place] POC O2 SAT 97 % 94 - 98 % [place] POC pCO2 50.0 High [place] POC pCO2 Temp NOT REPORTED mm Hg [place] POC pH 7.414 [place] POC pH Temp NOT REPORTED [place] POC PO2 92.9 [place] POC pO2 Temp NOT REPORTED mm Hg [place], [place] Positive Base Excess, Art 7 High [place] Pt Temp NOT REPORTED [place] Sample Site Arterial Line [place], [place] TCO2 (calc), Art 34 mmol/L High 22 - 29 mmol/L [place] Graham Test NOT APPLICABLE [place] FIO2 40.0 [place] Mode PRVC/PS [place] Negative Base Excess, Art NOT REPORTED [place] O2 Device/Flow/% Adult Ventilator [place] POC HCO3 32.0 mmol/L High 21 - 28 mmol/L [place] POC O2 SAT 99 % High 94 - 98 % [place] POC pCO2 52.7 High [place], [place] POC pCO2 Temp NOT REPORTED mm Hg [place], [place] POC pH 7.391 [place] POC pH Temp NOT REPORTED [place] POC PO2 125.0 High [place] POC pO2 Temp NOT REPORTED mm Hg [place], [place] Positive Base Excess, Art 6 High [place] Pt Temp NOT REPORTED [place] Sample Site Arterial Line [place], [place] TCO2 (calc), Art 34 mmol/L High 22 - 29 mmol/L [place] BASIC METABOLIC PANELon -2 Bun/Cre Ratio NOT REPORTED [place] CO2 [Moles/Vol] 30 mmol/L 20 - 31 mmol/L [place] GFR 53 mL/min Low >60 [place] GFR Comment [place] GFR Non- 44 mL/min Low >60 [place] GFR Staging NOT REPORTED [place] Interpretation and review of laboratory results Abnormal [place] Basic Metabolic Panelon 06-24 Anion gap [Moles/Vol] 14 mmol/L 9 - 17 mmol/L [place] Bun/Cre Ratio NOT REPORTED [place] Calcium [Mass/Vol] 8.8 mg/dL 8.6 - 10. 4 mg/dL [place] Chloride [Moles/Vol] 101 mmol/L 98 - 10 7 mmol/L [place] Creatinine [Mass/Vol] 1.36 mg/dL High 0.5 - 0.9 mg/dL [place] GFR 47 mL/min Low >60 [place] GFR Comment [place] GFR Non- 38 mL/min Low >60 [place] GFR Staging NOT REPORTED [place] Glucose [Mass/Vol] 156 mg/dL High 70 - 99 mg/dL [place] Interpretation and review of laboratory results Abnormal [place] Potassium [Moles/Vol] 3.1 mmol/L Low 3.7 - 5.3 mmol/L [place] Sodium [Moles/Vol] 145 mmol/L High 135 - 144 mmol/L [place] Urea nitrogen [Mass/Vol] 26 mg/dL High 8 - 23 mg/dL [place] Basic Metabolic Profon 07-13 GFR, Amer 53 mL/min Low >60 [facility] Comment on above: Performed By: #### C DP, PFA, CP, GLYHGB #### [employer] [address] [place] [phone] Job Coach/Job Developer: Savage Jacob MD GFR,non Amer 44 mL/min Low >60 [facility] Comment on above: Performed By: #### C DP, PFA, CP, GLYHGB #### [address] [address] Job Coach/Job Developer: Savage Jacob MD BUN/CRE Ratio NOT REPORTED Normal -20 [facility] Comment on above: Performed By: #### C DP, PFA, CP, GLYHGB #### [address] [address] Job Coach/Job Developer: Savage Jacob MD Staging: NOT REPORTED Normal [facility] Comment on above: Performed By: #### C DP, PFA, CP, GLYHGB #### [address] [address] Job Coach/Job Developer: Savage Jacob MD Anion gap [Moles/Vol] 13 mmol/L Normal 9-17 [place] Comment on above: Performed By: #### C DP, PFA, CP, GLYHGB #### [address] [address] Job Coach/Job Developer: Savage Jacob MD Calcium [Mass/Vol] 8.6 mg/dL Normal 8.6-10.4 [place] Comment on above: Performed By: #### C DP, PFA, CP, GLYHGB #### [address] [address] Job Coach/Job Developer: Savage Jacob MD Chloride [Moles/Vol] 104 mmol/L Normal 98-107 [place] Comment on above: Performed By: #### C DP, PFA, CP, GLYHGB #### [address] [address] Job Coach/Job Developer: Savage Jacob MD Creatinine [Mass/Vol] 1.21 mg/dL High 0.50-0.90 [place] Comment on above: Performed By: #### C DP, PFA, CP, GLYHGB #### [facility] [address] [place] [phone] Job Coach/Job Developer: Savage Jacob MD Glucose [Mass/Vol] 120 mg/dL High 70-99 [place] Comment on above: Performed By: #### C DP, PFA, CP, GLYHGB #### [facility] [facility] [place] [address] Job Coach/Job Developer: Savage Jacob MD Potassium [Moles/Vol] 3.2 mmol/L Low 3.7-5.3 [place] Comment on above: Performed By: #### C DP, PFA, CP, GLYHGB #### [facility] [address] [place] [address] Job Coach/Job Developer: Savage Jacob MD Sodium [Moles/Vol] 147 mmol/L High 135-144 [place] Comment on above: Performed By: #### C DP, PFA, CP, GLYHGB #### [facility] [address] [place] [address] [phone] Job Coach/Job Developer: Savage Jacob MD Urea nitrogen [Mass/Vol] 24 mg/dL High 8-23 [place] Comment on above: Performed By: #### C DP, PFA, CP, GLYHGB #### [facility] [address] [place] [address] Job Coach/Job Developer: Savage Jacob MD (cont.) [facility] Comment on above: Result Comment: Aver age GFR for 70 or more years old: 75 mL/min/1.73sq m Chronic Kidney Disease: <60 mL/min/1.73sq m Kidney failure: <15 mL/min/1.73sq m eGFR calculated using average adult body mass. Additional eGFR calculator available at: http://www.M[employer].com.com/multiple_crcl_2012.htm Performed By: #### C DP, PFA, CP, GLYHGB #### [facility] [address] [place] [address] [phone] Job Coach/Job Developer: Savage Jacob MD Anion gap [Moles/Vol] 14 mmol/L Normal 9-17 [facility] Comment on above: Performed By: #### C DP, PFA, CP, GLYHGB #### [facility] [address] [place] [phone] Job Coach/Job Developer: Savage Jacob MD Calcium [Mass/Vol] 8.8 mg/dL Normal 8.6-10.4 [facility] Comment on above: Performed By: #### C DP, PFA, CP, GLYHGB #### [facility] [address] [place] [address] Job Coach/Job Developer: Savage Jacob MD Chloride [Moles/Vol] 101 mmol/L Normal 98-107 [facility] Comment on above: Performed By: #### C DP, PFA, CP, GLYHGB #### [facility] [address] [place] [address] Job Coach/Job Developer: Savage Jacob MD CO2 [Moles/Vol] 30 mmol/L Normal 20-31 [facility] Comment on above: Performed By: #### C DP, PFA, CP, GLYHGB #### [facility] [address] [place] [address] Job Coach/Job Developer: Savage Jacob MD Creatinine [Mass/Vol] 1.36 mg/dL High 0.50-0.90 [facility] Comment on above: Performed By: #### C DP, PFA, CP, GLYHGB #### [facility] [address] [place] [phone] Job Coach/Job Developer: Savage Jacob MD GFR, Amer 47 mL/min Low >60 [facility] Comment on above: Performed By: #### C DP, PFA, CP, GLYHGB #### [facility] [address] [place] [address] Job Coach/Job Developer: Savage Jacob MD GFR,non Amer 38 mL/min Low >60 [facility] Comment on above: Performed By: #### C DP, PFA, CP, GLYHGB #### [facility] [address] [place] [address] Job Coach/Job Developer: Savage Jacob MD Glucose [Mass/Vol] 156 mg/dL High 70-99 [facility] Comment on above: Performed By: #### C DP, PFA, CP, GLYHGB #### [facility] [address] [place] [address] Job Coach/Job Developer: Savage Jacob MD Potassium [Moles/Vol] 3.1 mmol/L Low 3.7-5.3 [facility] Comment on above: Performed By: #### C DP, PFA, CP, GLYHGB #### [address] [address] Job Coach/Job Developer: Savage Jacob MD Sodium [Moles/Vol] 145 mmol/L High 135-144 [facility] Comment on above: Performed By: #### C DP, PFA, CP, GLYHGB #### [address] [address] Job Coach/Job Developer: Savage Jacob MD Urea nitrogen [Mass/Vol] 26 mg/dL High 8-23 [facility] Comment on above: Performed By: #### C DP, PFA, CP, GLYHGB #### [address] [address] Job Coach/Job Developer: Savage Jacob MD BUN/CRE Ratio NOT REPORTED Normal 9-20 [facility] Comment on above: Performed By: #### C DP, PFA, CP, GLYHGB #### [facility] [employer] [address] [place] [address] Job Coach/Job Developer: Savage Jacob MD Staging: NOT REPORTED Normal [facility] Comment on above: Performed By: #### C DP, PFA, CP, GLYHGB #### [facility] [employer] [address] [place] [address] Job Coach/Job Developer: Savage Jacob MD CO2 [Moles/Vol] 30 mmol/L Normal 20-31 [place], [place] Comment on above: Performed By: #### C DP, PFA, CP, GLYHGB #### [employer] [address] [place] [address] Job Coach/Job Developer: Savage Jacob MD CALCIUM, IONIC (POC)on 07-13 POC Ionized Calcium 1.14 mmol/L Low 1.15 - 1 .33 mmol/L [place] POC Ionized Calcium 1.16 mmol/L 1.15 - 1 .33 mmol/L [place] CBCon 07-13-2019 Erythrocyte distribution width (RBC) [Ratio] 15.5 % High 11.8-14.4 [facility] Comment on above: Performed By: #### C DP, PFA, CP, GLYHGB #### [facility] [address] [place] [address] Job Coach/Job Developer: Savage Jacob MD Hematocrit (Bld) [Volume fraction] 25.0 % Low 36.3-47.1 [facility] Comment on above: Performed By: #### C DP, PFA, CP, GLYHGB #### [facility] [address] [place] [address] Job Coach/Job Developer: Savage Jacob MD Hemoglobin (Bld) [Mass/Vol] 7.7 g/dL Low 11.9-15.1 [facility] Comment on above: Performed By: #### C DP, PFA, CP, GLYHGB #### [employer] [address] [place] [address] Job Coach/Job Developer: Savage Jacob MD MCH (RBC) [Entitic mass] 28.4 pg Normal 25.2-33.5 [facility] Comment on above: Performed By: #### C DP, PFA, CP, GLYHGB #### [facility] [address] [place] [address] Job Coach/Job Developer: Savage Jacob MD MCHC (RBC) [Mass/Vol] 30.8 g/dL Normal 28.4-34.8 [facility] Comment on above: Performed By: #### C DP, PFA, CP, GLYHGB #### [facility] [employer] [address] [place] [address] Job Coach/Job Developer: Savage Jacob MD MCV (RBC) [Entitic vol] 92.3 fL Normal 82.6-102.9 [facility] Comment on above: Performed By: #### C DP, PFA, CP, GLYHGB #### [place] [address] Job Coach/Job Developer: Savage Jacob MD NRBC Automated 0.5 per 100 WBC High 0.0 [facility] Comment on above: Performed By: #### C DP, PFA, CP, GLYHGB #### [place] [address] Job Coach/Job Developer: Savage Jacob MD Platelet mean volume (Bld) [Entitic vol] 9.4 fL Normal 8.1-13.5 [facility] Comment on above: Performed By: #### C DP, PFA, CP, GLYHGB #### [address] [address] Job Coach/Job Developer: Savage Jacob MD Platelets (Bld) [#/Vol] 278 10*3/uL Normal 138-453 [facility] Comment on above: Performed By: #### C DP, PFA, CP, GLYHGB #### [place] [address] Job Coach/Job Developer: Savage Jacob MD RBC (Bld) [#/Vol] 2.71 10*6/uL Low 3.95-5.11 [facility] Comment on above: Performed By: #### C DP, PFA, CP, GLYHGB #### [facility] [address] [place], [place] [phone] Job Coach/Job Developer: Savage Jacob MD WBC (Bld) [#/Vol] 13.9 10*3/uL High 3.5-11.3 [facility] Comment on above: Performed By: #### C DP, PFA, CP, GLYHGB #### [facility] [employer] [address] [place], [place] [phone] Job Coach/Job Developer: Savage Jacob MD Erythrocyte distribution width (RBC) [Ratio] 15.5 % High 11.8 - 14.4 % [place] Hematocrit (Bld) [Volume fraction] 25.0 % Low 36.3 - 47.1 % [place] Hemoglobin (Bld) [Mass/Vol] 7.7 g/dL Low 11.9 - 15.1 g/dL [place] Interpretation and review of laboratory results Abnormal [place] MCH (RBC) [Entitic mass] 28.4 pg 25.2 - 33.5 pg [place] MCHC (RBC) [Mass/Vol] 30.8 g/dL 28.4 - 34.8 g/dL [place] MCV (RBC) [Entitic vol] 92.3 fL 82.6 - 102.9 fL [place] Platelet mean volume (Bld) [Entitic vol] 9.4 fL 8.1 - 13.5 fL [place] Platelets (Bld) [#/Vol] 278 10*3/uL [place] RBC (Bld) [#/Vol] 2.71 10*6/uL Low 3.95 - 5.1 1 m/uL [place] WBC (Bld) [#/Vol] 0.5 10*3/uL High 0.0 per 10 0 WBC [place] WBC (Bld) [#/Vol] 13.9 10*3/uL [place] CHLORIDE (POC)on 07-13-2019 POC Chloride 103 mmol/L 98 - 107 mmol/L [place] POC Chloride 103 mmol/L 98 - 107 mmol/L [place] Creatinine W/GFR Point of Ca reon 07-13-2019 GFR Comment 46 mL/min Low >60 [place] GFR Comment [place] GFR Non- 38 mL/min Low >60 [place] POC Creatinine 1.38 mg/dL High 0.51 - 1.19 mg/dL [place] GFR Comment 46 mL/min Low >60 [place] GFR Comment [place] GFR Non- 38 mL/min Low >60 [place] POC Creatinine 1.38 mg/dL High 0.51 - 1.19 mg/dL [place] Cult,Respiratoryon 0 Cult,Respiratory Specimen Description .TRACHEAL ASPIRATE Special Requests NOT REPORTED Direct Exam >25 NEUTROPHILS/LPF < 10 EPITHELIAL CELLS/LPF NO SIGNIFICANT PATHOGENS SEEN Culture NORMAL RESPIRATORY ROSEANNA LIGHT GROWTH Report Status FINAL 07/13/2019 Normal [facility] Comment on above: Performed By: #### C DP, PFA, CP, GLYHGB #### [facility] [employer] [address] [place] [address] Job Coach/Job Developer: Savage Jacob MD Culture, Respiratoryon 07-13 Culture NORMAL RESPIRATORY ROSEANNA LIGHT GROWTH [place] Direct Exam < 10 EPITHELIAL CELLS/LPF [place] Direct Exam NO SIGNIFICANT PATHOGENS SEEN [place] Direct Exam >25 NEUTROPHILS/LPF [place] Special Requests NOT REPORTED [place] Specimen Description .TRACHEAL ASPIRATE [place] Hemoglobin and hematocrit, b loodon 07-13-2019 POC Hematocrit 22 % Low 36 - 46 % [place] POC Hemoglobin 7.6 g/dL Low 12 - 16 g/dL [place] POC Hematocrit 22 % Low 36 - 46 % [place] POC Hemoglobin 7.6 g/dL Low 12 - 16 g/dL [place], [place] Lactic Acid, POCon 0 POC Lactic Acid 0.40 mmol/L Low 0.56 - 1.39 mmol/L [place] POC Lactic Acid 0.55 mmol/L Low 0.56 - 1.39 mmol/L [place] Magnesiumon 07-13-2019 Magnesium [Mass/Vol] 2.0 mg/dL Normal 1.6-2.6 [facility] Comment on above: Performed By: #### C DP, PFA, CP, GLYHGB #### [facility] [address] [place], [place] [phone] Job Coach/Job Developer: Savage Jacob MD Magnesium [Mass/Vol] 2.0 mg/dL 1.6 - 2 .6 mg/dL [place] Otheron 07-13-2019 [place] Interpretation and review of laboratory results Abnormal [place] Interpretation and review of laboratory results Abnormal [place] POC Glucose Fingerstickon Interpretation and review of laboratory results Abnormal [place] POC Glucose 163 mg/dL High 65 - 105 mg/dL [place] Interpretation and review of laboratory results Abnormal [place] POC Glucose 125 mg/dL High 65 - 105 mg/dL [place] Interpretation and review of laboratory results Abnormal [place] POC Glucose 182 mg/dL High 65 - 105 mg/dL [place] Interpretation and review of laboratory results Abnormal [place] POC Glucose 151 mg/dL High 65 - 105 mg/dL [place] POCT Glucoseon 07-13-2019 POC Glucose 156 mg/dL High 74 - 100 mg/dL [place] POC Glucose 153 mg/dL High 74 - 100 mg/dL [place] POTASSIUM (POC)on 07-13-2019 POC Potassium 3.0 mmol/L Low 3.5 - 4.5 mmol/L [place] POC Potassium 3.0 mmol/L Low 3.5 - 4.5 mmol/L [place] PTon 07-13-2019 INR Coag (PPP) [Relative time] 1.1 {INR} Normal [facility] Comment on above: Result Comment: Therapeutic Range: Moderate Anticoagulant Intensity: INR = 2.0-3.0 High Anticoagulant Intensity: INR = 2.5-3.5 Performed By: #### C DP, PFA, CP, GLYHGB #### [facility] [place], [place] [phone] Job Coach/Job Developer: Savage Jacob MD PT Coag (PPP) [Time] 11.5 s Normal 9.0-12.0 [facility] Comment on above: Performed By: #### C DP, PFA, CP, GLYHGB #### [employer] [address] [place] [address] [phone] Job Coach/Job Developer: Savage Jacob MD Phosphoruson 07-13-2019 Phosphate [Mass/Vol] 4.4 mg/dL 2.6 - 4 .5 mg/dL [place] Phosphorus, Inorg.on 020 Phosphorus, Inorg. 4.4 mg/dL Normal 2.6-4.5 [facility] Comment on above: Performed By: #### C DP, PFA, CP, GLYHGB #### [facility] [address] [place] [address] [phone] Job Coach/Job Developer: Savage Jacob MD Protime-INRon 07-13-2019 INR Coag (PPP) [Relative time] 1.1 {INR} [place] PT Coag (PPP) [Time] 11.5 s [place] SODIUM (POC)on 07-13-2019 POC Sodium 145 mmol/L 138 - 146 mmol/L [place] POC Sodium 145 mmol/L 138 - 146 mmol/L [place] T3, Freeon 07-13-2019 Free T3 [Mass/Vol] 1.76 pg/mL Low 2.02-4.43 [facility] Comment on above: Performed By: #### C DP, PFA, CP, GLYHGB #### [employer] [address] [place] [address] [phone] Job Coach/Job Developer: Savage Jacob MD Free T3 [Mass/Vol] 1.76 pg/mL Low 2.02 - 4. 43 pg/mL [place] Interpretation and review of laboratory results Abnormal [place] THYROID PEROXIDASE ANTIBODYo n 07-13-2019 Interpretation and review of laboratory results Abnormal [place] Thyroid Peroxidase (Tpo) Ab 35.7 High [place] Thyroglobulin + ATAon 2019 Thyroglobulin 10.7 ng/mL Normal 0.0-63.4 [facility] Comment on above: Result Comment: Thyr oglobulin (Tg) is measured by the Siemens Immulite 2000 method, which has a lower limit of quantification of 0.2 ng/mL. Tg results less than 0.2 ng/mL are consistent with the absence of thyroglobulin-producing thyroid tissue. Results obtained with any different assay methods or kits cannot be used interchangeably. Performed By: #### C DP, PFA, CP, GLYHGB #### [facility] [employer] [facility] [place], [place] [phone] Job Coach/Job Developer: Savage Jacob MD Thyroglobulin Ab Qn [IU]/mL Normal 0.0-40.0 [facility] Comment on above: Performed By: #### C DP, PFA, CP, GLYHGB #### [facility] [employer] [facility] [place], [place] [phone] Job Coach/Job Developer: Savage Jacob MD Thyroglobulin and anti-Thyro globulin ABon 07-13-2019 Thyroglobulin 10.7 ng/mL 0 - 63.4 ng/mL [place] Thyroglobulin Ab Qn [IU]/mL [place] XR CHEST PORTABLEon 07-13-19 20 XR CHEST PORTABLE EXAMINATION: ONE XRAY [...] Antwon Abbott MD 07/13/19 Final result Normal [facility], [place], [place] APTTon 07-12-2019 aPTT Coag (Bld) [Time] 43.4 s High 20.5-30.5 [facility] Comment on above: Performed By: #### C DP, PFA, CP, GLYHGB #### [facility] [employer] [address] [place] [address] Job Coach/Job Developer: Savage Jacob MD aPTT Coag (Bld) [Time] 43.4 s [place], [place] Interpretation and review of laboratory results Abnormal [place] aPTT Coag (Bld) [Time] 31.5 s High 20.5-30.5 [facility] Comment on above: Performed By: #### C DP, PFA, CP, GLYHGB #### [facility] [employer] [address] [place] [address] Job Coach/Job Developer: Savage Jacob MD aPTT Coag (Bld) [Time] 31.5 s High [place], [place] Interpretation and review of laboratory results Abnormal [place] aPTT Coag (Bld) [Time] 56.2 s High 20.5-30.5 [place] Comment on above: Performed By: #### C DP, PFA, CP, GLYHGB #### [facility] [employer] [address] [place] [address] Job Coach/Job Developer: Savage Jacob MD Interpretation and review of laboratory results Abnormal [place] Anion Gap (Calc) POCon 07-12 Anion gap [Moles/Vol] 11 mmol/L 7 - 16 mmol/L [place] Arterial Blood Gas, POCon Graham Test NOT REPORTED [place] FIO2 40.0 [place] Interpretation and review of laboratory results Abnormal [place] Mode [place] Negative Base Excess, Art NOT REPORTED [place] O2 Device/Flow/% Adult Ventilator [place] POC HCO3 29.2 mmol/L High 21 - 28 mmol/L [place] POC O2 SAT 96 % 94 - 98 % [place] POC pCO2 49.0 High [place] POC pCO2 Temp NOT REPORTED mm Hg [place] POC pH 7.384 [place] POC pH Temp NOT REPORTED [place] POC PO2 86.5 [place] POC pO2 Temp NOT REPORTED mm Hg [place], [place] Positive Base Excess, Art 4 High [place] Pt Temp NOT REPORTED [place] Sample Site NOT REPORTED [place] TCO2 (calc), Art 31 mmol/L High 22 - 29 mmol/L [place] Graham Test NOT REPORTED [place] FIO2 40.0 [place] Interpretation and review of laboratory results Abnormal [place] Mode [place] Negative Base Excess, Art NOT REPORTED [place] O2 Device/Flow/% Adult Ventilator [place] POC HCO3 28.2 mmol/L High 21 - 28 mmol/L [place] POC O2 SAT 97 % 94 - 98 % [place] POC pCO2 44.0 [place] POC pCO2 Temp NOT REPORTED mm Hg [place] POC pH 7.415 [place] POC pH Temp NOT REPORTED [place] POC PO2 87.2 [place] POC pO2 Temp NOT REPORTED mm Hg [place] Positive Base Excess, Art 3 [place] Pt Temp NOT REPORTED [place] Sample Site NOT REPORTED [place] TCO2 (calc), Art 30 mmol/L High 22 - 29 mmol/L [place] Graham Test NOT APPLICABLE [place], [place] FIO2 40.0 [place] Mode PRVC [place] Negative Base Excess, Art NOT REPORTED [place] O2 Device/Flow/% Adult Ventilator [place] POC HCO3 29.2 mmol/L High 21 - 28 mmol/L [place] POC O2 SAT 98 % 94 - 98 % [place] POC pCO2 45.3 [place] POC pCO2 Temp NOT REPORTED mm Hg [place] POC pH 7.418 [place] POC pH Temp NOT REPORTED [place] POC PO2 107.0 [place] POC pO2 Temp NOT REPORTED mm Hg [place], [place] Positive Base Excess, Art 4 High [place] Pt Temp NOT REPORTED [place] Sample Site Arterial Line [place] TCO2 (calc), Art 31 mmol/L High 22 - 29 mmol/L [place] B12/Folate Panelon 0 Cobalamin (Vitamin B12) [Mass/Vol] 1313 pg/mL High 232-1245 [facility] Comment on above: Performed By: #### C DP, PFA, CP, GLYHGB #### [facility] [address] [place], [place] [phone] Job Coach/Job Developer: Savage Jacob MD Folic Acid 7.0 ng/mL Normal >4.8 [facility] Comment on above: Performed By: #### C DP, PFA, CP, GLYHGB #### [facility] [address] [place], [place] [phone] Job Coach/Job Developer: Savage Jacob MD Basic Metabolic Panelon 06-24 Anion gap [Moles/Vol] 13 mmol/L 9 - 17 mmol/L [place] Bun/Cre Ratio NOT REPORTED [place] Calcium [Mass/Vol] 8.3 mg/dL Low 8.6 - 10. 4 mg/dL [place] Chloride [Moles/Vol] 107 mmol/L 98 - 10 7 mmol/L [place] CO2 [Moles/Vol] 27 mmol/L 20 - 31 mmol/L [place] Creatinine [Mass/Vol] 1.2 mg/dL High 0.5 - 0.9 mg/dL [place] GFR 54 mL/min Low >60 [place] GFR Comment [place] GFR Non- 44 mL/min Low >60 [place] GFR Staging NOT REPORTED [place] Glucose [Mass/Vol] 133 mg/dL High 70 - 99 mg/dL [place] Interpretation and review of laboratory results Abnormal [place] Potassium [Moles/Vol] 3.4 mmol/L Low 3.7 - 5.3 mmol/L [place] Sodium [Moles/Vol] 147 mmol/L High 135 - 144 mmol/L [place] Urea nitrogen [Mass/Vol] 28 mg/dL High 8 - 23 mg/dL [place] Basic Metabolic Profon 07-12 (cont.) Normal [facility] Comment on above: Result Comment: Aver age GFR for 70 or more years old: 75 mL/min/1.73sq m Chronic Kidney Disease: <60 mL/min/1.73sq m Kidney failure: <15 mL/min/1.73sq m eGFR calculated using average adult body mass. Additional eGFR calculator available at: http://www.MFG.com.[employer]/multiple_crcl_2011.htm Performed By: #### C DP, PFA, CP, GLYHGB #### [facility] [address] [place] [address] Job Coach/Job Developer: Savage Jacob MD Anion gap [Moles/Vol] 13 mmol/L Normal 9-17 [facility] Comment on above: Performed By: #### C DP, PFA, CP, GLYHGB #### [facility] [address] [place] [address] Job Coach/Job Developer: Savage Jacob MD Calcium [Mass/Vol] 8.3 mg/dL Low 8.6-10.4 [facility] Comment on above: Performed By: #### C DP, PFA, CP, GLYHGB #### [facility] [employer] [address] [place] [address] Job Coach/Job Developer: Savage Jacob MD Chloride [Moles/Vol] 107 mmol/L Normal 98-107 [facility] Comment on above: Performed By: #### C DP, PFA, CP, GLYHGB #### [facility] [employer] [address] [place] [address] Job Coach/Job Developer: Savage Jacob MD CO2 [Moles/Vol] 27 mmol/L Normal 20-31 [facility] Comment on above: Performed By: #### C DP, PFA, CP, GLYHGB #### [facility] [address] [place] [address] Job Coach/Job Developer: Savage Jacob MD Creatinine [Mass/Vol] 1.20 mg/dL High 0.50-0.90 [facility] Comment on above: Performed By: #### C DP, PFA, CP, GLYHGB #### [facility] [address] [place] [address] Job Coach/Job Developer: Savage Jacob MD GFR, Amer 54 mL/min Low >60 [facility] Comment on above: Performed By: #### C DP, PFA, CP, GLYHGB #### [facility] [address] [place] [address] Job Coach/Job Developer: Savage Jacob MD GFR,non Amer 44 mL/min Low >60 [facility] Comment on above: Performed By: #### C DP, PFA, CP, GLYHGB #### [facility] [address] [place] [address] Job Coach/Job Developer: Savage Jacob MD Glucose [Mass/Vol] 133 mg/dL High 70-99 [facility] Comment on above: Performed By: #### C DP, PFA, CP, GLYHGB #### [facility] [address] [place] [address] Job Coach/Job Developer: Savage Jacob MD Potassium [Moles/Vol] 3.4 mmol/L Low 3.7-5.3 [facility] Comment on above: Performed By: #### C DP, PFA, CP, GLYHGB #### [address] [address] Job Coach/Job Developer: Savage Jacob MD Sodium [Moles/Vol] 147 mmol/L High 135-144 [facility] Comment on above: Performed By: #### C DP, PFA, CP, GLYHGB #### [facility] [address] [place] [phone] Job Coach/Job Developer: Savage Jacob MD Urea nitrogen [Mass/Vol] 28 mg/dL High 8-23 [facility] Comment on above: Performed By: #### C DP, PFA, CP, GLYHGB #### [facility] [address] [place] [address] Job Coach/Job Developer: Savage Jaocb MD BUN/CRE Ratio NOT REPORTED Normal -20 [facility] Comment on above: Performed By: #### C DP, PFA, CP, GLYHGB #### [facility] [address] [place] [address] Job Coach/Job Developer: Savage Jacob MD Staging: NOT REPORTED Normal [facility] Comment on above: Performed By: #### C DP, PFA, CP, GLYHGB #### [facility] [address] [place] [address] Job Coach/Job Developer: Savage Jacob MD CALCIUM, IONIC (POC)on 07-12 POC Ionized Calcium 1.17 mmol/L 1.15 - 1 .33 mmol/L [facility], [place] CBCon 07-12-2019 Erythrocyte distribution width (RBC) [Ratio] 15.6 % High 11.8-14.4 [facility] Comment on above: Performed By: #### C DP, PFA, CP, GLYHGB #### [facility] [address] [place] [address] Job Coach/Job Developer: Savage Jacob MD Hematocrit (Bld) [Volume fraction] 25.4 % Low 36.3-47.1 [facility] Comment on above: Performed By: #### C DP, PFA, CP, GLYHGB #### [facility] [address] [place] [address] Job Coach/Job Developer: Savage Jacob MD Hemoglobin (Bld) [Mass/Vol] 7.9 g/dL Low 11.9-15.1 [facility] Comment on above: Performed By: #### C DP, PFA, CP, GLYHGB #### [facility] [address] [place] [address] Job Coach/Job Developer: Savage Jacob MD MCH (RBC) [Entitic mass] 28.6 pg Normal 25.2-33.5 [facility] Comment on above: Performed By: #### C DP, PFA, CP, GLYHGB #### [facility] [address] [place] [address] Job Coach/Job Developer: Savage Jacob MD MCHC (RBC) [Mass/Vol] 31.1 g/dL Normal 28.4-34.8 [facility] Comment on above: Performed By: #### C DP, PFA, CP, GLYHGB #### [address] [address] Job Coach/Job Developer: Savage Jacob MD MCV (RBC) [Entitic vol] 92.0 fL Normal 82.6-102.9 [facility] Comment on above: Performed By: #### C DP, PFA, CP, GLYHGB #### [address] [address] Job Coach/Job Developer: Savage Jacob MD NRBC Automated 1.4 per 100 WBC High 0.0 [facility] Comment on above: Performed By: #### C DP, PFA, CP, GLYHGB #### [address] [address] Job Coach/Job Developer: Savage Jacob MD Platelet mean volume (Bld) [Entitic vol] 9.6 fL Normal 8.1-13.5 [facility] Comment on above: Performed By: #### C DP, PFA, CP, GLYHGB #### [address] [address] Job Coach/Job Developer: Savage Jacob MD Platelets (Bld) [#/Vol] 263 10*3/uL Normal 138-453 [facility] Comment on above: Performed By: #### C DP, PFA, CP, GLYHGB #### [address] [address] Job Coach/Job Developer: Savage Jacob MD RBC (Bld) [#/Vol] 2.76 10*6/uL Low 3.95-5.11 [facility] Comment on above: Performed By: #### C DP, PFA, CP, GLYHGB #### [address] [address] Job Coach/Job Developer: Savage Jacob MD WBC (Bld) [#/Vol] 8.4 10*3/uL Normal 3.5-11.3 [facility] Comment on above: Performed By: #### C DP, PFA, CP, GLYHGB #### [facility] [address] [place] [address] Job Coach/Job Developer: Savage Jacob MD Erythrocyte distribution width (RBC) [Ratio] 15.6 % High 11.8 - 14.4 % [place] Hematocrit (Bld) [Volume fraction] 25.4 % Low 36.3 - 47.1 % [place] Hemoglobin (Bld) [Mass/Vol] 7.9 g/dL Low 11.9 - 15.1 g/dL [place] Interpretation and review of laboratory results Abnormal [place] MCH (RBC) [Entitic mass] 28.6 pg 25.2 - 33.5 pg [place] MCHC (RBC) [Mass/Vol] 31.1 g/dL 28.4 - 34.8 g/dL [place] MCV (RBC) [Entitic vol] 92.0 fL 82.6 - 102.9 fL [place] Platelet mean volume (Bld) [Entitic vol] 9.6 fL 8.1 - 13.5 fL [place] Platelets (Bld) [#/Vol] 263 10*3/uL [place] RBC (Bld) [#/Vol] 2.76 10*6/uL Low 3.95 - 5.1 1 m/uL [place] WBC (Bld) [#/Vol] 1.4 10*3/uL High 0.0 per 10 0 WBC [place] WBC (Bld) [#/Vol] 8.4 10*3/uL [place] CHLORIDE (POC)on 07-12-2019 POC Chloride 106 mmol/L 98 - 107 mmol/L [place] CORTISOLon 07-12-2019 Cortisol 12.6 ug/dL 2.7 - 18.4 ug/dL [place] Cortisol Collection Info NOT REPORTED [place] Cortisolon 07-12-2019 Cortisol 12.6 ug/dL Normal 2.7-18.4 [facility] Comment on above: Result Comment: Cortisol Reference Range: AM 6.0-18.4 PM 2.7-10.5 Performed By: #### C DP, PFA, CP, GLYHGB #### [facility] [address] [place] [phone] Job Coach/Job Developer: Savage Jacob MD Collection Info. NOT REPORTED Normal [facility] Comment on above: Performed By: #### C DP, PFA, CP, GLYHGB #### [facility] [address] [place] [address] Job Coach/Job Developer: Savage Jacob MD Creatinine W/GFR Point of Ca reon 07-12-2019 GFR Comment 50 mL/min Low >60 [place] GFR Comment [place] GFR Non- 42 mL/min Low >60 [place] POC Creatinine 1.27 mg/dL High 0.51 - 1.19 mg/dL [place] EEG video monitoringon 07-12 [place] Electrolyteson 07-12-2019 Anion gap [Moles/Vol] 11 mmol/L Normal 9-17 [facility] Comment on above: Performed By: #### C DP, PFA, CP, GLYHGB #### [address] [address] Job Coach/Job Developer: Savage Jacob MD Chloride [Moles/Vol] 110 mmol/L High 98-107 [facility] Comment on above: Performed By: #### C DP, PFA, CP, GLYHGB #### [facility] [address] [place] [address] Job Coach/Job Developer: Savage Jacob MD CO2 [Moles/Vol] 26 mmol/L Normal 20-31 [facility] Comment on above: Performed By: #### C DP, PFA, CP, GLYHGB #### [facility] [address] [place] [phone] Job Coach/Job Developer: Savage Jacob MD Potassium [Moles/Vol] 4.0 mmol/L Normal 3.7-5.3 [facility] Comment on above: Performed By: #### C DP, PFA, CP, GLYHGB #### [facility] [address] [place] [address] Job Coach/Job Developer: Savage Jacob MD Sodium [Moles/Vol] 147 mmol/L High 135-144 [facility] Comment on above: Performed By: #### C DP, PFA, CP, GLYHGB #### [facility] [address] [place] [address] Job Coach/Job Developer: Savage Jacob MD Hemoglobin and hematocrit, b loodon 07-12-2019 POC Hematocrit 25 % Low 36 - 46 % [place], [place] POC Hemoglobin 8.4 g/dL Low 12 - 16 g/dL [place], [place] Lactic Acid, POCon 0 POC Lactic Acid 0.59 mmol/L 0.56 - 1.39 mmol/L [place] MAGNESIUM, IONIZEDon 020 Magnesium, Ionized 0.52 mmol/L 0.45 - 0. 6 mmol/L [place] MRA HEAD WO CONTRASTon 07-12 MRA HEAD WO CONTRAST EXAMINATION: MRI OF THE BRAIN WITHOUT CONTRAST; MRA OF THE HEAD WITHOUT CONTRAST; MRA OF THE NECK WITHOUT CONTRAST 07/12/2019 12:04 pm TECHNIQUE: Multiplanar multisequence MRI of the brain was performed without the administration of intravenous contrast.; MRA of the head was performed utilizing [id number] imaging with MIP images. No intravenous contrast [...] of the P2 segment of the right APPLICATIONS ENGINEER. There are additional 80% focal stenosis along the P2 segments of the bilateral it project lead. The vertebral and basilar arteries appear unremarkable. [...] of the P2 segment of the right APPLICATIONS ENGINEER. Additional 80% focal stenosis along the P2 segments of the bilateral it project lead. 40% stenosis at the origins of the bilateral internal carotid arteries. The results were sent to radiology results communication. Interpreted by: Red Sheets MD Signed by: Red Sheets MD 07/12/19 Final result Normal [facility] MRA NECK WO CONTRASTon 07-12 MRA NECK WO CONTRAST EXAMINATION: MRI OF THE BRAIN WITHOUT CONTRAST; MRA OF THE HEAD WITHOUT CONTRAST; MRA OF THE NECK WITHOUT CONTRAST 07/12/2019 12:04 pm TECHNIQUE: Multiplanar multisequence MRI of the brain was performed without the administration of intravenous contrast.; MRA of the head was performed utilizing fdqq-[id number]-[id number] imaging with MIP images. No intravenous contrast [...] of the P2 segment of the right APPLICATIONS ENGINEER. There are additional 80% focal stenosis along the P2 segments of the bilateral it project lead. The vertebral and basilar arteries appear unremarkable. [...] of the P2 segment of the right APPLICATIONS ENGINEER. Additional 80% focal stenosis along the P2 segments of the bilateral it project lead. 40% stenosis at the origins of the bilateral internal carotid arteries. The results were sent to radiology results communication. Interpreted by: Red Sheets MD Signed by: Red Sheets MD 07/12/19 Final result Normal [facility] MRI BRAIN WO CONTRASTon 06-24 MRI BRAIN WO CONTRAST EXAMINATION: MRI OF THE BRAIN WITHOUT CONTRAST; MRA OF THE HEAD WITHOUT CONTRAST; MRA OF THE NECK WITHOUT CONTRAST 07/12/2019 12:04 pm TECHNIQUE: Multiplanar multisequence MRI of the brain was performed without the administration of intravenous contrast.; MRA of the head was performed utilizing uate-ua-[id number] imaging with MIP images. No intravenous contrast [...] of the P2 segment of the right APPLICATIONS ENGINEER. There are additional 80% focal stenosis along the P2 segments of the bilateral it project lead. The vertebral and basilar arteries appear unremarkable. [...] of the P2 segment of the right APPLICATIONS ENGINEER. Additional 80% focal stenosis along the P2 segments of the bilateral it project lead. 40% stenosis at the origins of the bilateral internal carotid arteries. The results were sent to radiology results communication. Interpreted by: Rde Sheets MD Signed by: Red Sheets MD 07/12/19 Final result Normal [facility] Magnesiumon 07-12-2019 Magnesium [Mass/Vol] 2.0 mg/dL Normal 1.6-2.6 [facility] Comment on above: Performed By: #### C DP, PFA, CP, GLYHGB #### [facility] [employer] [address] [place] [id number] Job Coach/Job Developer: Savage Jacob MD Magnesium [Mass/Vol] 2.0 mg/dL 1.6 - 2 .6 mg/dL [place] Magnesium, Ionizedon 020 Magnesium [Mass/Vol] 0.52 mmol/L Normal 0.45-0.60 [facility] Comment on above: Performed By: #### C DP, PFA, CP, GLYHGB #### [facility] [employer] [address] [place] [address] Job Coach/Job Developer: Savage Jacob MD Otheron 07-12-2019 [place], [place] Interpretation and review of laboratory results Abnormal [place] POC Glucose Fingerstickon Interpretation and review of laboratory results Abnormal [place] POC Glucose 131 mg/dL High 65 - 105 mg/dL [place] Interpretation and review of laboratory results Abnormal [place] POC Glucose 119 mg/dL High 65 - 105 mg/dL [place] POC Glucose 103 mg/dL 65 - 105 mg/dL [place] POCT Glucoseon 07-12-2019 POC Glucose 126 mg/dL High 74 - 100 mg/dL [place] POTASSIUM (POC)on 07-12-2019 POC Potassium 3.3 mmol/L Low 3.5 - 4.5 mmol/L [place] PTon 07-12-2019 INR Coag (PPP) [Relative time] 1.1 {INR} Normal [place] Comment on above: Result Comment: Therapeutic Range: Moderate Anticoagulant Intensity: INR = 2.0-3.0 High Anticoagulant Intensity: INR = 2.5-3.5 Performed By: #### C DP, PFA, CP, GLYHGB #### [facility] [address] [place] [address] Job Coach/Job Developer: Savage Jacob MD PT Coag (PPP) [Time] 11.4 s Normal 9.0-12.0 [place] Comment on above: Performed By: #### C DP, PFA, CP, GLYHGB #### [facility] [address] [place] [address] Job Coach/Job Developer: Savage Jacob MD Phosphoruson 07-12-2019 Phosphate [Mass/Vol] 2.6 mg/dL 2.6 - 4 .5 mg/dL [place] Phosphorus, Inorg.on 020 Phosphorus, Inorg. 2.6 mg/dL Normal 2.6-4.5 [facility] Comment on above: Performed By: #### C DP, PFA, CP, GLYHGB #### [facility] [employer] [address] [place] [address] Job Coach/Job Developer: Savage Jacob MD SODIUM (POC)on 07-12-2019 POC Sodium 146 mmol/L 138 - 146 mmol/L [place] T4, Freeon 02-20-2020 Thyroxine, Free 1.13 ng/dL 0.93 - 1.7 ng/dL [place] TSH w/reflex to FT4on 2019 TSH Qn 8.82 m[IU]/L High 0.30-5.00 [facility] Comment on above: Performed By: #### C DP, PFA, CP, GLYHGB #### [facility] [employer] [facility] [place], [place] [id number] Job Coach/Job Developer: Savage Jacob MD TSH with Reflexon 07-12-2019 Interpretation and review of laboratory results Abnormal [place] TSH Qn 8.82 m[IU]/L High [place] Thyroxine, Freeon 07-12-2019 Thyroxine, Free 1.13 ng/dL Normal 0.93-1.70 [facility] Comment on above: Performed By: #### C DP, PFA, CP, GLYHGB #### [facility] [employer] [address] [place] [address] [id number] Job Coach/Job Developer: Savage Jacob MD VITAMIN B12 & FOLATEon 07-12 Cobalamin (Vitamin B12) [Mass/Vol] 1313 pg/mL High 232 - 1245 pg/mL [place] Folate 7 ng/mL >4.8 [place] Interpretation and review of laboratory results Abnormal [place] XR CHEST PORTABLEon 07-12-19 XR CHEST [...] Red Sheets MD 07/12/19 Final result Normal [place], [place] APTTon 07-11-2019 aPTT Coag (Bld) [Time] 57.0 s High 20.5-30.5 [facility] Comment on above: Performed By: #### C DP, PFA, CP, GLYHGB #### [address] [address] Job Coach/Job Developer: Savgae Jacob MD aPTT Coag (Bld) [Time] 57.0 s High [place], [place] Interpretation and review of laboratory results Abnormal [place] aPTT Coag (Bld) [Time] 51.5 s High 20.5-30.5 [facility] Comment on above: Performed By: #### C DP, PFA, CP, GLYHGB #### [facility] [employer] [address] [place] [address] Job Coach/Job Developer: Savage Jacob MD aPTT Coag (Bld) [Time] 51.5 s High [place], [place] Interpretation and review of laboratory results Abnormal [place] aPTT Coag (Bld) [Time] 55.6 s High 20.5-30.5 [facility] Comment on above: Performed By: #### C DP, PFA, CP, GLYHGB #### [facility] [employer] [address] [place] [address] Job Coach/Job Developer: Savage Jacob MD aPTT Coag (Bld) [Time] 55.6 s High [place] Interpretation and review of laboratory results Abnormal [place] Anion Gap (Calc) POCon 07-11 Anion gap [Moles/Vol] 10 mmol/L 7 - 16 mmol/L [place] Anion gap [Moles/Vol] 10 mmol/L 7 - 16 mmol/L [facility], [place] Anion gap [Moles/Vol] 11 mmol/L 7 - 16 mmol/L [facility] [place] Anion gap [Moles/Vol] 12 mmol/L 7 - 16 mmol/L [facility] [place] Anion gap [Moles/Vol] 11 mmol/L 7 - 16 mmol/L [facility] [place] Anion gap [Moles/Vol] 12 mmol/L 7 - 16 mmol/L [facility], [place] Anion gap [Moles/Vol] 11 mmol/L 7 - 16 mmol/L [place] Anion gap [Moles/Vol] 12 mmol/L 7 - 16 mmol/L [place] Arterial Blood Gas, POCon Graham Test NOT REPORTED [place] FIO2 40.0 [place] Mode NOT REPORTED [place] Negative Base Excess, Art NOT REPORTED [place] O2 Device/Flow/% Adult Ventilator [place] POC HCO3 29.7 mmol/L High 21 - 28 mmol/L [place] POC O2 SAT 98 % 94 - 98 % [place] POC pCO2 42.9 [place] POC pCO2 Temp NOT REPORTED mm Hg [place] POC pH 7.448 [place] POC pH Temp NOT REPORTED [place] POC PO2 99.4 [place] POC pO2 Temp NOT REPORTED mm Hg [place], [place] Positive Base Excess, Art 5 High [place] Pt Temp NOT REPORTED [place] Sample Site Arterial Line [place] TCO2 (calc), Art 31 mmol/L High 22 - 29 mmol/L [place] Graham Test NOT REPORTED [place] FIO2 50.0 [place] Mode NOT REPORTED [place] Negative Base Excess, Art NOT REPORTED [place] O2 Device/Flow/% Adult Ventilator [place] POC HCO3 29.4 mmol/L High 21 - 28 mmol/L [place] POC O2 SAT 99 % High 94 - 98 % [place] POC pCO2 42.7 [place] POC pCO2 Temp NOT REPORTED mm Hg [place] POC pH 7.446 [place] POC pH Temp NOT REPORTED [place] POC PO2 148.2 High [place] POC pO2 Temp NOT REPORTED mm Hg [place] Positive Base Excess, Art 5 High [place] Pt Temp NOT REPORTED [place] Sample Site Arterial Line [place] TCO2 (calc), Art 31 mmol/L High 22 - 29 mmol/L [place] Graham Test NOT REPORTED [place] FIO2 65.0 [place] Mode NOT REPORTED [place] Negative Base Excess, Art NOT REPORTED [place] O2 Device/Flow/% Adult Ventilator [place] POC HCO3 29.6 mmol/L High 21 - 28 mmol/L [place] POC O2 SAT 100 % High 94 - 98 % [place] POC pCO2 42.2 [place] POC pCO2 Temp NOT REPORTED mm Hg [place] POC pH 7.455 [place] POC pH Temp NOT REPORTED [place] POC PO2 192.9 [place] POC pO2 Temp NOT REPORTED mm Hg [place] Positive Base Excess, Art 5 High [place] Pt Temp NOT REPORTED [place] Sample Site Arterial Line [place] TCO2 (calc), Art 31 mmol/L High 22 - 29 mmol/L [place] Graham Test NOT REPORTED [place] FIO2 90.0 [place] Mode NOT REPORTED [place] Negative Base Excess, Art NOT REPORTED [place] O2 Device/Flow/% Adult Ventilator [place] POC HCO3 30.3 mmol/L High 21 - 28 mmol/L [place] POC O2 SAT 100 % High 94 - 98 % [place] POC pCO2 44.8 [place] POC pCO2 Temp NOT REPORTED mm Hg [place] POC pH 7.438 [place] POC pH Temp NOT REPORTED [place] POC PO2 407.6 High [place] POC pO2 Temp NOT REPORTED mm Hg [place] Positive Base Excess, Art 6 High [place] Pt Temp NOT REPORTED [place] Sample Site Arterial Line [place] TCO2 (calc), Art 32 mmol/L High 22 - 29 mmol/L [place] Graham Test NOT REPORTED [place] FIO2 90.0 [place] Mode NOT REPORTED [place] Negative Base Excess, Art NOT REPORTED [place] O2 Device/Flow/% Adult Ventilator [place] POC HCO3 29.5 mmol/L High 21 - 28 mmol/L [place] POC O2 SAT 98 % 94 - 98 % [place] POC pCO2 41.6 [place] POC pCO2 Temp NOT REPORTED mm Hg [place] POC pH 7.460 [place] POC pH Temp NOT REPORTED [place] POC PO2 91.1 [place] POC pO2 Temp NOT REPORTED mm Hg [place] Positive Base Excess, Art 5 High [place] Pt Temp NOT REPORTED [place] Sample Site Arterial Line [place] TCO2 (calc), Art 31 mmol/L High 22 - 29 mmol/L [place] Graham Test NOT REPORTED [place] FIO2 100.0 [place] Mode NOT REPORTED [place] Negative Base Excess, Art NOT REPORTED [place] O2 Device/Flow/% Adult Ventilator [place] POC HCO3 28.7 mmol/L High 21 - 28 mmol/L [place] POC O2 SAT 86 % Low 94 - 98 % [place] POC pCO2 31.7 Low [place] POC pCO2 Temp NOT REPORTED mm Hg [place] POC pH 7.566 High [place] POC pH Temp NOT REPORTED [place] POC PO2 43.2 Critically low [place], [place] POC pO2 Temp NOT REPORTED mm Hg [place] Positive Base Excess, Art 6 High [place] Pt Temp NOT REPORTED [place] Sample Site Arterial Line [place] TCO2 (calc), Art 30 mmol/L High 22 - 29 mmol/L [place] Graham Test NOT APPLICABLE [place], [place] FIO2 100.0 [place] Mode [place] Negative Base Excess, Art NOT REPORTED [place] O2 Device/Flow/% Adult Ventilator [place] POC HCO3 29.6 mmol/L High 21 - 28 mmol/L [place] POC O2 SAT 86 % Low 94 - 98 % [place] POC pCO2 42.3 [place] POC pCO2 Temp NOT REPORTED mm Hg [place] POC pH 7.452 [place] POC pH Temp NOT REPORTED [place] POC PO2 49.8 Critically low [place], [place] POC pO2 Temp NOT REPORTED mm Hg [place] Positive Base Excess, Art 5 High [place] Pt Temp NOT REPORTED [place] Sample Site Arterial Line [place] TCO2 (calc), Art 31 mmol/L High 22 - 29 mmol/L [place] Graham Test Positive [place] FIO2 100.0 [place] Mode [place] Negative Base Excess, Art NOT REPORTED [place] O2 Device/Flow/% Adult Ventilator [place] POC HCO3 30.2 mmol/L High 21 - 28 mmol/L [place] POC O2 SAT 86 % Low 94 - 98 % [place] POC pCO2 45.0 [place] POC pCO2 Temp NOT REPORTED mm Hg [place] POC pH 7.435 [place] POC pH Temp NOT REPORTED [place] POC PO2 49.7 Critically low [place], [place] POC pO2 Temp NOT REPORTED mm Hg [place] Positive Base Excess, Art 5 High [place] Pt Temp NOT REPORTED [place] Sample Site Arterial Line [place] TCO2 (calc), Art 32 mmol/L High 22 - 29 mmol/L [place] BASIC METABOLIC PANELon 06-23 Anion gap [Moles/Vol] 15 mmol/L 9 - 17 mmol/L [place] Bun/Cre Ratio NOT REPORTED [place] Calcium [Mass/Vol] 8.3 mg/dL Low 8.6 - 10. 4 mg/dL [place] Chloride [Moles/Vol] 106 mmol/L 98 - 10 7 mmol/L [place] CO2 [Moles/Vol] 26 mmol/L 20 - 31 mmol/L [place] Creatinine [Mass/Vol] 1.09 mg/dL High 0.5 - 0.9 mg/dL [place] GFR >60 >60 mL/min [place] GFR Comment [place] GFR Non- 50 mL/min Low >60 [place] GFR Staging NOT REPORTED [place] Glucose [Mass/Vol] 166 mg/dL High 70 - 99 mg/dL [place] Interpretation and review of laboratory results Abnormal [place] Potassium [Moles/Vol] 3.5 mmol/L Low 3.7 - 5.3 mmol/L [place] Sodium [Moles/Vol] 147 mmol/L High 135 - 144 mmol/L [place] Urea nitrogen [Mass/Vol] 30 mg/dL High 8 - 23 mg/dL [place] Basic Metabolic Panelon 06-23 Anion gap [Moles/Vol] 17 mmol/L 9 - 17 mmol/L [place] Bun/Cre Ratio NOT REPORTED [place] Calcium [Mass/Vol] 8.7 mg/dL 8.6 - 10. 4 mg/dL [place] Chloride [Moles/Vol] 102 mmol/L 98 - 10 7 mmol/L [place] CO2 [Moles/Vol] 26 mmol/L 20 - 31 mmol/L [place] Creatinine [Mass/Vol] 1.29 mg/dL High 0.5 - 0.9 mg/dL [place] GFR 50 mL/min Low >60 [place] GFR Comment [place] GFR Non- 41 mL/min Low >60 [place] GFR Staging NOT REPORTED [place] Glucose [Mass/Vol] 287 mg/dL High 70 - 99 mg/dL [place] Potassium [Moles/Vol] 3.2 mmol/L Low 3.7 - 5.3 mmol/L [place] Sodium [Moles/Vol] 145 mmol/L High 135 - 144 mmol/L [place] Urea nitrogen [Mass/Vol] 32 mg/dL High 8 - 23 mg/dL [place] Basic Metabolic Profon 07-11 (cont.) Normal [facility] Comment on above: Result Comment: Aver age GFR for 70 or more years old: 75 mL/min/1.73sq m Chronic Kidney Disease: <60 mL/min/1.73sq m Kidney failure: <15 mL/min/1.73sq m eGFR calculated using average adult body mass. Additional eGFR calculator available at: http://www.MFG.com.[employer]/multiple_crcl_2011.htm Performed By: #### C DP, PFA, CP, GLYHGB #### [facility] [employer] [address] [place] [id number] Job Coach/Job Developer: Savage Jacob MD Anion gap [Moles/Vol] 15 mmol/L Normal 9-17 [facility] Comment on above: Performed By: #### C DP, PFA, CP, GLYHGB #### [facility] [employer] [address] [place] [id number] Job Coach/Job Developer: Savage Jacob MD Calcium [Mass/Vol] 8.3 mg/dL Low 8.6-10.4 [facility] Comment on above: Performed By: #### C DP, PFA, CP, GLYHGB #### [address] [address] Job Coach/Job Developer: Savage Jacob MD Chloride [Moles/Vol] 106 mmol/L Normal 98-107 [facility] Comment on above: Performed By: #### C DP, PFA, CP, GLYHGB #### [address] [address] Job Coach/Job Developer: Savage Jacob MD CO2 [Moles/Vol] 26 mmol/L Normal 20-31 [facility] Comment on above: Performed By: #### C DP, PFA, CP, GLYHGB #### [facility] [employer] [address] [place] [phone] Job Coach/Job Developer: Savage Jacob MD Creatinine [Mass/Vol] 1.09 mg/dL High 0.50-0.90 [facility] Comment on above: Performed By: #### C DP, PFA, CP, GLYHGB #### [facility] [employer] [address] [place] [address] Job Coach/Job Developer: Savage Jacob MD GFR, Amer >60 Normal >60 [facility] Comment on above: Performed By: #### C DP, PFA, CP, GLYHGB #### [address] [address] Job Coach/Job Developer: Savage Jacob MD GFR,non Amer 50 mL/min Low >60 [facility] Comment on above: Performed By: #### C DP, PFA, CP, GLYHGB #### [address] [address] Job Coach/Job Developer: Savage Jacob MD Glucose [Mass/Vol] 166 mg/dL High 70-99 [facility] Comment on above: Performed By: #### C DP, PFA, CP, GLYHGB #### [address] [address] Job Coach/Job Developer: Savage Jacob MD Potassium [Moles/Vol] 3.5 mmol/L Low 3.7-5.3 [facility] Comment on above: Performed By: #### C DP, PFA, CP, GLYHGB #### [address] [address] Job Coach/Job Developer: Savage Jacob MD Sodium [Moles/Vol] 147 mmol/L High 135-144 [facility] Comment on above: Performed By: #### C DP, PFA, CP, GLYHGB #### [address] [address] Job Coach/Job Developer: Savage Jacob MD Urea nitrogen [Mass/Vol] 30 mg/dL High 8- [facility] Comment on above: Performed By: #### C DP, PFA, CP, GLYHGB #### [address] [address] Job Coach/Job Developer: Savage Jacob MD BUN/CRE Ratio NOT REPORTED Normal - [facility] Comment on above: Performed By: #### C DP, PFA, CP, GLYHGB #### [address] [address] Job Coach/Job Developer: Savage Jacob MD Staging: NOT REPORTED Normal [facility] Comment on above: Performed By: #### C DP, PFA, CP, GLYHGB #### [address] [id number] Job Coach/Job Developer: Savage Jacob MD (cont.) Normal [facility] Comment on above: Result Comment: Aver age GFR for 70 or more years old: 75 mL/min/1.73sq m Chronic Kidney Disease: <60 mL/min/1.73sq m Kidney failure: <15 mL/min/1.73sq m eGFR calculated using average adult body mass. Additional eGFR calculator available at: http://www.[employer]/multiple_crcl_2011.htm Performed By: #### C DP, PFA, CP, GLYHGB #### [place] [address] Job Coach/Job Developer: Savage Jacob MD Anion gap [Moles/Vol] 17 mmol/L Normal 9-17 [facility] Comment on above: Performed By: #### C DP, PFA, CP, GLYHGB #### [place] [address] Job Coach/Job Developer: Savage Jacob MD Calcium [Mass/Vol] 8.7 mg/dL Normal 8.6-10.4 [facility] Comment on above: Performed By: #### C DP, PFA, CP, GLYHGB #### [facility] [employer] [address] [place] [address] Job Coach/Job Developer: Savage Jacob MD Chloride [Moles/Vol] 102 mmol/L Normal 98-107 [facility] Comment on above: Performed By: #### C DP, PFA, CP, GLYHGB #### [facility] [employer] [address] [place] [address] Job Coach/Job Developer: Savage Jacob MD CO2 [Moles/Vol] 26 mmol/L Normal 20-31 [facility] Comment on above: Performed By: #### C DP, PFA, CP, GLYHGB #### [address] [address] Job Coach/Job Developer: Savage Jacob MD Creatinine [Mass/Vol] 1.29 mg/dL High 0.50-0.90 [facility] Comment on above: Performed By: #### C DP, PFA, CP, GLYHGB #### [address] [address] Job Coach/Job Developer: Savage Jacob MD GFR, Amer 50 mL/min Low >60 [facility] Comment on above: Performed By: #### C DP, PFA, CP, GLYHGB #### [address] [address] Job Coach/Job Developer: Savage Jacob MD GFR,non Amer 41 mL/min Low >60 [facility] Comment on above: Performed By: #### C DP, PFA, CP, GLYHGB #### [address] [address] Job Coach/Job Developer: Savage Jacob MD Glucose [Mass/Vol] 287 mg/dL High 70-99 [facility] Comment on above: Performed By: #### C DP, PFA, CP, GLYHGB #### [address] [address] Job Coach/Job Developer: Savage Jacob MD Potassium [Moles/Vol] 3.2 mmol/L Low 3.7-5.3 [facility] Comment on above: Performed By: #### C DP, PFA, CP, GLYHGB #### [address] [address] Job Coach/Job Developer: Savage Jacob MD Sodium [Moles/Vol] 145 mmol/L High 135-144 [facility] Comment on above: Performed By: #### C DP, PFA, CP, GLYHGB #### [facility] [address] [place] [address] Job Coach/Job Developer: Savage Jacob MD Urea nitrogen [Mass/Vol] 32 mg/dL High 01-12 [facility] Comment on above: Performed By: #### C DP, PFA, CP, GLYHGB #### [facility] [address] [place] [address] Job Coach/Job Developer: Savage Jacob MD BUN/CRE Ratio NOT REPORTED Normal 02-09 [facility] Comment on above: Performed By: #### C DP, PFA, CP, GLYHGB #### [facility] [address] [place] [address] Job Coach/Job Developer: Savage Jacob MD Staging: NOT REPORTED Normal [facility] Comment on above: Performed By: #### C DP, PFA, CP, GLYHGB #### [facility] [address] [place] [address] Job Coach/Job Developer: Savage Jacob MD CALCIUM, IONIC (POC)on 07-11 POC Ionized Calcium 1.16 mmol/L 1.15 - 1 .33 mmol/L [place] POC Ionized Calcium 1.16 mmol/L 1.15 - 1 .33 mmol/L [place] POC Ionized Calcium 1.15 mmol/L 1.15 - 1 .33 mmol/L [place] POC Ionized Calcium 1.18 mmol/L 1.15 - 1 .33 mmol/L [place] POC Ionized Calcium 1.14 mmol/L Low 1.15 - 1 .33 mmol/L [place] POC Ionized Calcium 1.11 mmol/L Low 1.15 - 1 .33 mmol/L [place] POC Ionized Calcium 1.14 mmol/L Low 1.15 - 1 .33 mmol/L [place] POC Ionized Calcium 1.13 mmol/L Low 1.15 - 1 .33 mmol/L [place] CALCIUM, IONIZEDon 0 Calcium, Ion 1.07 mmol/L Low 1.13 - 1.33 mmol/L [place] Interpretation and review of laboratory results Abnormal [place] CBCon 07-11-2019 Erythrocyte distribution width (RBC) [Ratio] 15.4 % High 11.8-14.4 [facility] Comment on above: Performed By: #### C DP, PFA, CP, GLYHGB #### [facility] [employer] [address] [place] [phone] Job Coach/Job Developer: Savage Jacob MD Hematocrit (Bld) [Volume fraction] 27.7 % Low 36.3-47.1 [facility] Comment on above: Performed By: #### C DP, PFA, CP, GLYHGB #### [facility] [employer] [address] [place] [address] Job Coach/Job Developer: Savage Jacob MD Hemoglobin (Bld) [Mass/Vol] 8.6 g/dL Low 11.9-15.1 [facility] Comment on above: Performed By: #### C DP, PFA, CP, GLYHGB #### [facility] [employer] [address] [place] [address] Job Coach/Job Developer: Savage Jacob MD MCH (RBC) [Entitic mass] 28.9 pg Normal 25.2-33.5 [facility] Comment on above: Performed By: #### C DP, PFA, CP, GLYHGB #### [facility] [employer] [address] [place] [address] [id number] Job Coach/Job Developer: Savage Jacob MD MCHC (RBC) [Mass/Vol] 31.0 g/dL Normal 28.4-34.8 [facility] Comment on above: Performed By: #### C DP, PFA, CP, GLYHGB #### [facility] [employer] [address] [place] [phone] Job Coach/Job Developer: Savage Jacob MD MCV (RBC) [Entitic vol] 93.0 fL Normal 82.6-102.9 [facility] Comment on above: Performed By: #### C DP, PFA, CP, GLYHGB #### [address] [address] Job Coach/Job Developer: Savage Jacob MD NRBC Automated 2.4 per 100 WBC High 0.0 [facility] Comment on above: Performed By: #### C DP, PFA, CP, GLYHGB #### [address] [address] Job Coach/Job Developer: Savage Jacob MD Platelet mean volume (Bld) [Entitic vol] 9.8 fL Normal 8.1-13.5 [facility] Comment on above: Performed By: #### C DP, PFA, CP, GLYHGB #### [address] [address] Job Coach/Job Developer: Savage Jacob MD Platelets (Bld) [#/Vol] 305 10*3/uL Normal 138-453 [facility] Comment on above: Performed By: #### C DP, PFA, CP, GLYHGB #### [address] [address] Job Coach/Job Developer: Savage Jacob MD RBC (Bld) [#/Vol] 2.98 10*6/uL Low 3.95-5.11 [facility] Comment on above: Performed By: #### C DP, PFA, CP, GLYHGB #### [address] [address] Job Coach/Job Developer: Savage Jacob MD WBC (Bld) [#/Vol] 15.5 10*3/uL High 3.5-11.3 [facility] Comment on above: Performed By: #### C DP, PFA, CP, GLYHGB #### [address] [address] Job Coach/Job Developer: Savage Jacob MD Erythrocyte distribution width (RBC) [Ratio] 15.4 % High 11.8 - 14.4 % [place] Hematocrit (Bld) [Volume fraction] 27.7 % Low 36.3 - 47.1 % [place] Hemoglobin (Bld) [Mass/Vol] 8.6 g/dL Low 11.9 - 15.1 g/dL [place] Interpretation and review of laboratory results Abnormal [place] MCH (RBC) [Entitic mass] 28.9 pg 25.2 - 33.5 pg [place] MCHC (RBC) [Mass/Vol] 31.0 g/dL 28.4 - 34.8 g/dL [place] MCV (RBC) [Entitic vol] 93.0 fL 82.6 - 102.9 fL [place] Platelet mean volume (Bld) [Entitic vol] 9.8 fL 8.1 - 13.5 fL [place] Platelets (Bld) [#/Vol] 305 10*3/uL [place] RBC (Bld) [#/Vol] 2.98 10*6/uL Low 3.95 - 5.1 1 m/uL [place] WBC (Bld) [#/Vol] 2.4 10*3/uL High 0.0 per 10 0 WBC [place] WBC (Bld) [#/Vol] 15.5 10*3/uL [place] CHLORIDE (POC)on 07-11-2019 POC Chloride 107 mmol/L 98 - 107 mmol/L [place] POC Chloride 108 mmol/L High 98 - 107 mmol/L [place] POC Chloride 106 mmol/L 98 - 107 mmol/L [place] POC Chloride 105 mmol/L 98 - 107 mmol/L [place] POC Chloride 105 mmol/L 98 - 107 mmol/L [place] POC Chloride 105 mmol/L 98 - 107 mmol/L [place] POC Chloride 105 mmol/L 98 - 107 mmol/L [place] POC Chloride 104 mmol/L 98 - 107 mmol/L [place] Calcium, Ionicon 07-11-2019 Calcium [Mass/Vol] 1.07 mmol/L Low 1.13-1.33 [facility] Comment on above: Performed By: #### C DP, PFA, CP, GLYHGB #### [facility] [place] [id number] Job Coach/Job Developer: Savage Jacob MD Creatinine W/GFR Point of Ca reon 07-11-2019 GFR Comment [place] GFR Comment 50 mL/min Low >60 [place] GFR Non- 41 mL/min Low >60 [place] POC Creatinine 1.28 mg/dL High 0.51 - 1.19 mg/dL [place] GFR Comment 49 mL/min Low >60 [place] GFR Comment [place] GFR Non- 40 mL/min Low >60 [place] POC Creatinine 1.3 mg/dL High 0.51 - 1.19 mg/dL [place] GFR Comment 51 mL/min Low >60 [place] GFR Comment [place] GFR Non- 42 mL/min Low >60 [place] POC Creatinine 1.27 mg/dL High 0.51 - 1.19 mg/dL [place] GFR Comment 53 mL/min Low >60 [place] GFR Comment [place] GFR Non- 44 mL/min Low >60 [place] POC Creatinine 1.22 mg/dL High 0.51 - 1.19 mg/dL [place] GFR Comment 51 mL/min Low >60 [place] GFR Comment [place] GFR Non- 42 mL/min Low >60 [place] POC Creatinine 1.26 mg/dL High 0.51 - 1.19 mg/dL [place] GFR Comment [place] GFR Comment 52 mL/min Low >60 [place] GFR Non- 43 mL/min Low >60 [place] POC Creatinine 1.24 mg/dL High 0.51 - 1.19 mg/dL [place] GFR Comment [place] GFR Comment 52 mL/min Low >60 [place] GFR Non- 43 mL/min Low >60 [place] POC Creatinine 1.23 mg/dL High 0.51 - 1.19 mg/dL [place] GFR Comment 49 mL/min Low >60 [place] GFR Comment [place] GFR Non- 41 mL/min Low >60 [place] POC Creatinine 1.29 mg/dL High 0.51 - 1.19 mg/dL [place] EKG 12 Leadon 07-11-2019 Atrial Rate 106 BPM [place] Q-T Interval 300 ms [place] QRS Duration 90 ms [place] QTc Calculation (Bazett) 398 ms [place] R [place] 44 degrees [place] T [place] -101 degrees [place] Ventricular [place] 106 BPM [facility] [employer] ELECTROLYTE PANELon 07-11-19 20 Anion gap [Moles/Vol] 11 mmol/L 9 - 17 mmol/L [place] Chloride [Moles/Vol] 110 mmol/L High 98 - 10 7 mmol/L [place] CO2 [Moles/Vol] 26 mmol/L 20 - 31 mmol/L [place] Interpretation and review of laboratory results Abnormal [place] Potassium [Moles/Vol] 4.0 mmol/L 3.7 - 5.3 mmol/L [place] Sodium [Moles/Vol] 147 mmol/L High 135 - 144 mmol/L [place] Hemoglobin and hematocrit, b loodon 07-11-2019 POC Hematocrit 24 % Low 36 - 46 % [place] POC Hemoglobin 8.0 g/dL Low 12 - 16 g/dL [place] POC Hematocrit 24 % Low 36 - 46 % [facility] [place], [place] POC Hemoglobin 8.1 g/dL Low 12 - 16 g/dL [facility] [place] POC Hematocrit 24 % Low 36 - 46 % [facility] [place] POC Hemoglobin 8.1 g/dL Low 12 - 16 g/dL [facility] [place] POC Hematocrit 25 % Low 36 - 46 % [facility] [place] POC Hemoglobin 8.5 g/dL Low 12 - 16 g/dL [facility] [place] POC Hematocrit 27 % Low 36 - 46 % [facility] [place] POC Hemoglobin 9.1 g/dL Low 12 - 16 g/dL [facility] POC Hematocrit 27 % Low 36 - 46 % [facility] [place] POC Hemoglobin 9.2 g/dL Low 12 - 16 g/dL [facility] POC Hematocrit 24 % Low 36 - 46 % [facility], [place] POC Hemoglobin 8.2 g/dL Low 12 - 16 g/dL [facility] POC Hematocrit 30 % Low 36 - 46 % [facility] [place] POC Hemoglobin 10.2 g/dL Low 12 - 16 g/dL [facility]- [place], [place] Lactic Acid, POCon 0 POC Lactic Acid 0.51 mmol/L Low 0.56 - 1.39 mmol/L [place] POC Lactic Acid 0.64 mmol/L 0.56 - 1.39 mmol/L [place] POC Lactic Acid 0.73 mmol/L 0.56 - 1.39 mmol/L [facility], [place] POC Lactic Acid 1.11 mmol/L 0.56 - 1.39 mmol/L [facility], [place] POC Lactic Acid 0.74 mmol/L 0.56 - 1.39 mmol/L [facility], [place] POC Lactic Acid 0.84 mmol/L 0.56 - 1.39 mmol/L [facility], [place] POC Lactic Acid 0.92 mmol/L 0.56 - 1.39 mmol/L [facility], [place] POC Lactic Acid 1.00 mmol/L 0.56 - 1.39 mmol/L [place] MAGNESIUMon 07-11-2019 Magnesium [Mass/Vol] 2.3 mg/dL 1.6 - 2 .6 mg/dL [facility], [place] Magnesiumon 07-11-2019 Magnesium [Mass/Vol] 2.3 mg/dL Normal 1.6-2.6 [facility] Comment on above: Performed By: #### C DP, PFA, CP, GLYHGB #### [facility] [address] [place], [place] [id number] Job Coach/Job Developer: Savage Jacob MD Magnesium [Mass/Vol] 2.0 mg/dL Normal 1.6-2.6 [facility] Comment on above: Performed By: #### C DP, PFA, CP, GLYHGB #### [facility] [address] [place], [place] [phone] Job Coach/Job Developer: Savage Jacob MD Magnesium [Mass/Vol] 2.0 mg/dL 1.6 - 2 .6 mg/dL [facility], [place] Notification Panel, POCon Action Notifyphysician [facility], [place] Date/Time 07/11/201907:42:00 [facility], [place] NOTIFY diego [facility], [place] READ BACK Yes [facility], [place] Action NotifyRCoco [facility], [place] Date/Time 07/11/201905:55:00 [facility], [place] NOTIFY janis [facility], [place] READ BACK Yes [facility], [place] OPERATIVE REPORTon 0 OPERATIVE REPORT [address] [address] OPERATIVE REPORT PATIENT NAME: ELEANOR MCCLAIN : 1950 MED REC NO: [id number] ROOM: [facility] ACCOUNT NO: [id number] ADMIT DATE: 07/03/2019 PROVIDER: Caro Teresa MD [...] to complete the operation. CARO TERESA MD THEODORE/Shana_SSPAR_T Doc#: [id number] CC: Normal [facility] OPERATIVE REPORT [address] [address] OPERATIVE REPORT PATIENT NAME: ELEANOR MCCLAIN : 1950 MED REC NO: [id number] ROOM: 1006 ACCOUNT NO: [id number] ADMIT DATE: 07/03/2019 PROVIDER: Caro Teresa MD [...] to perform this operation. CARO TERESA MD THEODORE/Shana_JHOAN_T Doc#: [id number] CC: Normal [facility] OPERATIVE REPORT [address] [address] OPERATIVE REPORT PATIENT NAME: ROSITA MCCLAINSOURAV Hay : 1950 MED REC NO: [id number] ROOM: [facility] ACCOUNT NO: [id number] ADMIT DATE: 07/03/2019 PROVIDER: Caro Teresa MD [...] to me by Dr. Anshul Irizarry of [facility], who has been diagnosed with severe aortic [...] this operation. CARO TERESA MD DD/V_SSNKC_I Doc#: [id number] CC: Normal [facility] Otheron 07-11-2019 Interpretation and review of laboratory results Abnormal [place] Interpretation and review of laboratory results Abnormal [place] Interpretation and review of laboratory results Abnormal [place] Interpretation and review of laboratory results Abnormal [place] Interpretation and review of laboratory results Abnormal [place] Interpretation and review of laboratory results Abnormal [place] Interpretation and review of laboratory results Abnormal [place] Interpretation and review of laboratory results Abnormal [place] Interpretation and review of laboratory results Abnormal [place] POC Glucose Fingerstickon POC Glucose 100 mg/dL 65 - 105 mg/dL [place] POCT Glucoseon 07-11-2019 POC Glucose 101 mg/dL High 74 - 100 mg/dL [place] POC Glucose 105 mg/dL High 74 - 100 mg/dL [place] POC Glucose 118 mg/dL High 74 - 100 mg/dL [place] POC Glucose 143 mg/dL High 74 - 100 mg/dL [place] POC Glucose 338 mg/dL High 74 - 100 mg/dL [place] POC Glucose 325 mg/dL High 74 - 100 mg/dL [place] POC Glucose 318 mg/dL High 74 - 100 mg/dL [place] POC Glucose 319 mg/dL High 74 - 100 mg/dL [place] POTASSIUM (POC)on 07-11-2019 POC Potassium 3.7 mmol/L 3.5 - 4.5 mmol/L [facility], [place] POC Potassium 3.8 mmol/L 3.5 - 4.5 mmol/L [facility], [place] POC Potassium 3.6 mmol/L 3.5 - 4.5 mmol/L [facility], [place] POC Potassium 3.1 mmol/L Low 3.5 - 4.5 mmol/L [facility], [place] POC Potassium 3.2 mmol/L Low 3.5 - 4.5 mmol/L [facility], [place] POC Potassium 3.0 mmol/L Low 3.5 - 4.5 mmol/L [facility], [place] POC Potassium 2.8 mmol/L Critically low 3.5 - 4.5 mmol/L [facility], [place] POC Potassium 3.0 mmol/L Low 3.5 - 4.5 mmol/L [place] PTon 07-11-2019 INR Coag (PPP) [Relative time] 1.1 {INR} Normal [facility] Comment on above: Result Comment: Therapeutic Range: Moderate Anticoagulant Intensity: INR = 2.0-3.0 High Anticoagulant Intensity: INR = 2.5-3.5 Performed By: #### C DP, PFA, CP, GLYHGB #### [employer] [address] [place] [phone] Job Coach/Job Developer: Savage Jacob MD PT Coag (PPP) [Time] 11.7 s Normal 9.0-12.0 [facility] Comment on above: Performed By: #### C DP, PFA, CP, GLYHGB #### [employer] [address] [place] [address] Job Coach/Job Developer: Savage Jacob MD Phosphoruson 07-11-2019 Phosphate [Mass/Vol] 2.5 mg/dL Low 2.6 - 4 .5 mg/dL [place] Phosphorus, Inorg.on 02-19-2 020 Phosphorus, Inorg. 2.5 mg/dL Low 2.6-4.5 [facility] Comment on above: Performed By: #### C DP, PFA, CP, GLYHGB #### [facility] [employer] [facility] [place] [address] Job Coach/Job Developer: Savage Jacob MD Protime-INRon 07-11-2019 INR Coag (PPP) [Relative time] 1.1 {INR} [facility], [place] PT Coag (PPP) [Time] 11.7 s [facility], [place] SODIUM (POC)on 07-11-2019 POC Sodium 147 mmol/L High 138 - 146 mmol/L [facility], [place] POC Sodium 147 mmol/L High 138 - 146 mmol/L [facility], [place] POC Sodium 147 mmol/L High 138 - 146 mmol/L [facility], [place] POC Sodium 147 mmol/L High 138 - 146 mmol/L [facility] POC Sodium 145 mmol/L 138 - 146 mmol/L [facility], [place] POC Sodium 146 mmol/L 138 - 146 mmol/L [facility], [place] POC Sodium 146 mmol/L 138 - 146 mmol/L [facility], [place] POC Sodium 146 mmol/L 138 - 146 mmol/L [place] XR CHEST PORTABLEon 07-11-19 20 XR [...] Cyril Warner MD 07/11/19 Final result Normal [facility], [facility], [place] [facility] XR CHEST PORTABLE EXAMINATION: ONE XRAY [...] Jesús Clemons MD 07/11/19 Final result Normal [facility] XR CHEST PORTABLE EXAMINATION: ONE XRAY VIEW [...] Александр Barreto MD 07/11/19 Final result Normal [facility], [facility], [facility], [place] [facility], [place] APTTon 07-10-2019 aPTT Coag (Bld) [Time] 38.1 s High 20.5-30.5 [facility] Comment on above: Performed By: #### C DP, PFA, CP, GLYHGB #### [facility] [address] [place] [address] Job Coach/Job Developer: Savage Jacob MD aPTT Coag (Bld) [Time] 38.1 s [place] Interpretation and review of laboratory results Abnormal [place] aPTT Coag (Bld) [Time] 41.6 s High 20.5-30.5 [facility] Comment on above: Performed By: #### C DP, PFA, CP, GLYHGB #### [facility] [employer] [address] [place] [address] Job Coach/Job Developer: Savage Jacob MD aPTT Coag (Bld) [Time] 41.6 s High [place] Interpretation and review of laboratory results Abnormal [place] aPTT Coag (Bld) [Time] 38.2 s High 20.5-30.5 [facility] Comment on above: Performed By: #### C DP, PFA, CP, GLYHGB #### [facility] [employer] [address] [place] [address] Job Coach/Job Developer: Savage Jacob MD aPTT Coag (Bld) [Time] 38.2 s High [place] Interpretation and review of laboratory results Abnormal [place] Anion Gap (Calc) POCon 07-10 Anion gap [Moles/Vol] 9 mmol/L 7 - 16 mmol/L [place] Anion gap [Moles/Vol] 9 mmol/L 7 - 16 mmol/L [place] Arterial Blood Gas, POCon Graham Test NOT REPORTED [place] FIO2 50.0 [place] Mode NOT REPORTED [facility], [place] Negative Base Excess, Art NOT REPORTED [facility], [place] O2 Device/Flow/% BIPAP [facility] POC HCO3 29.6 mmol/L High 21 - 28 mmol/L [facility], [place] POC O2 SAT 95 % 94 - 98 % [facility], [place] POC pCO2 44.8 [facility] [place], [place] POC pCO2 Temp NOT REPORTED mm Hg [facility] [place] POC pH 7.428 [facility], [place] POC pH Temp NOT REPORTED [facility]- [place], [place] POC PO2 73.3 Low [facility] [place], [place] POC pO2 Temp NOT REPORTED mm Hg [facility]- [place], [place] Positive Base Excess, Art 5 High [place] Pt Temp NOT REPORTED [facility] [place] Sample Site Arterial Line [place] TCO2 (calc), Art 31 mmol/L High 22 - 29 mmol/L [place] Graham Test NOT REPORTED [place] FIO2 50.0 [place] Mode NOT REPORTED [place] Negative Base Excess, Art NOT REPORTED [place] O2 Device/Flow/% BIPAP [facility] [place], [place] POC HCO3 29.1 mmol/L High 21 - 28 mmol/L [place] POC O2 SAT 98 % 94 - 98 % [place] POC pCO2 46.8 [facility] [place] POC pCO2 Temp NOT REPORTED mm Hg [facility] [place] POC pH 7.401 [facility], [place] POC pH Temp NOT REPORTED [facility], [place] POC PO2 103.2 [facility], [place] POC pO2 Temp NOT REPORTED mm Hg [place] Positive Base Excess, Art 4 High [facility]- [place] Pt Temp NOT REPORTED [place] Sample Site Arterial Line [place] TCO2 (calc), Art 31 mmol/L High 22 - 29 mmol/L [place] Graham Test NOT REPORTED [place] FIO2 50.0 [facility] [place], [place] Mode PRVC [place] Negative Base Excess, Art NOT REPORTED [place] O2 Device/Flow/% Adult Ventilator [place] POC HCO3 30.7 mmol/L High 21 - 28 mmol/L [place] POC O2 SAT 96 % 94 - 98 % [place] POC pCO2 57.3 High [place] POC pCO2 Temp NOT REPORTED mm Hg [place] POC pH 7.337 Low [place] POC pH Temp NOT REPORTED [place] POC PO2 87.4 [place] POC pO2 Temp NOT REPORTED mm Hg [place] Positive Base Excess, Art 4 High [place] Pt Temp NOT REPORTED [place] Sample Site Left Radial Artery [place] TCO2 (calc), Art 32 mmol/L High 22 - 29 mmol/L [place] Graham Test NOT REPORTED [place] FIO2 100.0 [place] Mode NOT REPORTED [place] Negative Base Excess, Art NOT REPORTED [place] O2 Device/Flow/% NRB [place] POC HCO3 32.0 mmol/L High 21 - 28 mmol/L [place] POC O2 SAT 96 % 94 - 98 % [place] POC pCO2 62.8 High [place] POC pCO2 Temp NOT REPORTED mm Hg [place] POC pH 7.315 Low [place] POC pH Temp NOT REPORTED [place] POC PO2 93.5 [place] POC pO2 Temp NOT REPORTED mm Hg [place] Positive Base Excess, Art 5 High [place] Pt Temp NOT REPORTED [place] Sample Site Left Radial Artery [place] TCO2 (calc), Art 34 mmol/L High 22 - 29 mmol/L [place] Basic Metabolic Panelon 06-23 Anion gap [Moles/Vol] 16 mmol/L 9 - 17 mmol/L [place] Bun/Cre Ratio NOT REPORTED [facility] [place] Calcium [Mass/Vol] 8.7 mg/dL 8.6 - 10. 4 mg/dL [place] Chloride [Moles/Vol] 109 mmol/L High 98 - 10 7 mmol/L [place] CO2 [Moles/Vol] 23 mmol/L 20 - 31 mmol/L [place] Creatinine [Mass/Vol] 1.41 mg/dL High 0.5 - 0.9 mg/dL [place] GFR 45 mL/min Low >60 [place] GFR Comment [place] GFR Non- 37 mL/min Low >60 [place] GFR Staging NOT REPORTED [place] Glucose [Mass/Vol] 233 mg/dL High 70 - 99 mg/dL [place] Interpretation and review of laboratory results Abnormal [place] Potassium [Moles/Vol] 4.0 mmol/L 3.7 - 5.3 mmol/L [place] Sodium [Moles/Vol] 148 mmol/L High 135 - 144 mmol/L [place] Urea nitrogen [Mass/Vol] 41 mg/dL High 8 - 23 mg/dL [place] Basic Metabolic Profon 07-10 (cont.) Normal [facility] Comment on above: Result Comment: Aver age GFR for 70 or more years old: 75 mL/min/1.73sq m Chronic Kidney Disease: <60 mL/min/1.73sq m Kidney failure: <15 mL/min/1.73sq m eGFR calculated using average adult body mass. Additional eGFR calculator available at: http://www.MFG.com.[employer]/multiple_crcl_2012.htm Performed By: #### C DP, PFA, CP, GLYHGB #### [facility] [employer] [address] [place], [place] [phone] Job Coach/Job Developer: Savage Jacob MD Anion gap [Moles/Vol] 16 mmol/L Normal 9-17 [facility] Comment on above: Performed By: #### C DP, PFA, CP, GLYHGB #### [facility] [address] [place] [address] Job Coach/Job Developer: Savage Jacob MD Calcium [Mass/Vol] 8.7 mg/dL Normal 8.6-10.4 [facility] Comment on above: Performed By: #### C DP, PFA, CP, GLYHGB #### [facility] [address] [place] [address] Job Coach/Job Developer: Savage Jacob MD Chloride [Moles/Vol] 109 mmol/L High 98-107 [facility] Comment on above: Performed By: #### C DP, PFA, CP, GLYHGB #### [facility] [employer] [address] [place] [phone] Job Coach/Job Developer: Savage Jacob MD CO2 [Moles/Vol] 23 mmol/L Normal 20-31 [facility] Comment on above: Performed By: #### C DP, PFA, CP, GLYHGB #### [facility] [employer] [address] [place] [phone] Job Coach/Job Developer: Savage Jacob MD Creatinine [Mass/Vol] 1.41 mg/dL High 0.50-0.90 [facility] Comment on above: Performed By: #### C DP, PFA, CP, GLYHGB #### [facility] [employer] [address] [place] [address] Job Coach/Job Developer: Savage Jacob MD GFR, Amer 45 mL/min Low >60 [facility] Comment on above: Performed By: #### C DP, PFA, CP, GLYHGB #### [facility] [employer] [address] [place] [address] Job Coach/Job Developer: Savage Jacob MD GFR,non Amer 37 mL/min Low >60 [facility] Comment on above: Performed By: #### C DP, PFA, CP, GLYHGB #### [facility] [address] [place] [address] Job Coach/Job Developer: Savage Jacob MD Glucose [Mass/Vol] 233 mg/dL High 70-99 [facility] Comment on above: Performed By: #### C DP, PFA, CP, GLYHGB #### [facility] [address] [place] [address] Job Coach/Job Developer: Savage Jacob MD Potassium [Moles/Vol] 4.0 mmol/L Normal 3.7-5.3 [facility] Comment on above: Performed By: #### C DP, PFA, CP, GLYHGB #### [facility] [employer] [address] [place] [address] Job Coach/Job Developer: Savage Jacob MD Sodium [Moles/Vol] 148 mmol/L High 135-144 [facility] Comment on above: Performed By: #### C DP, PFA, CP, GLYHGB #### [facility] [employer] [address] [place] [address] Job Coach/Job Developer: Savage Jacob MD Urea nitrogen [Mass/Vol] 41 mg/dL High 8-23 [facility] Comment on above: Performed By: #### C DP, PFA, CP, GLYHGB #### [facility] [employer] [address] [place] [address] Job Coach/Job Developer: Savage Jacob MD BUN/CRE Ratio NOT REPORTED Normal 9-20 [facility] Comment on above: Performed By: #### C DP, PFA, CP, GLYHGB #### [facility] [employer] [address] [place] [phone] Job Coach/Job Developer: Savage Jacob MD Staging: NOT REPORTED Normal [facility] Comment on above: Performed By: #### C DP, PFA, CP, GLYHGB #### [facility] [address] [place] [address] [phone] Job Coach/Job Developer: Savage Jacob MD CALCIUM, IONIC (POC)on 07-10 POC Ionized Calcium 1.21 mmol/L 1.15 - 1 .33 mmol/L [place] POC Ionized Calcium 1.21 mmol/L 1.15 - 1 .33 mmol/L [place] CBCon 07-10-2019 Erythrocyte distribution width (RBC) [Ratio] 15.5 % High 11.8-14.4 [facility] Comment on above: Performed By: #### C DP, PFA, CP, GLYHGB #### [employer] [address] [place] [phone] Job Coach/Job Developer: Savage Jacob MD Hematocrit (Bld) [Volume fraction] 27.5 % Low 36.3-47.1 [facility] Comment on above: Performed By: #### C DP, PFA, CP, GLYHGB #### [facility] [employer] [address] [place] [address] Job Coach/Job Developer: Savage Jacob MD Hemoglobin (Bld) [Mass/Vol] 8.3 g/dL Low 11.9-15.1 [facility] Comment on above: Performed By: #### C DP, PFA, CP, GLYHGB #### [facility] [address] [place] [phone] Job Coach/Job Developer: Savage Jacob MD MCH (RBC) [Entitic mass] 28.7 pg Normal 25.2-33.5 [facility] General Comment on above: Performed By: #### C DP, PFA, CP, GLYHGB #### [facility] [address] [place] [address] Job Coach/Job Developer: Savage Jacob MD MCHC (RBC) [Mass/Vol] 30.2 g/dL Normal 28.4-34.8 [facility] Comment on above: Performed By: #### C DP, PFA, CP, GLYHGB #### [employer] [address] [place] [address] Job Coach/Job Developer: Savage Jacob MD MCV (RBC) [Entitic vol] 95.2 fL Normal 82.6-102.9 [facility] Comment on above: Performed By: #### C DP, PFA, CP, GLYHGB #### [address] [address] Job Coach/Job Developer: Savage Jacob MD NRBC Automated 2.0 per 100 WBC High 0.0 [facility] Comment on above: Performed By: #### C DP, PFA, CP, GLYHGB #### [address] [address] Job Coach/Job Developer: Savage Jacob MD Platelet mean volume (Bld) [Entitic vol] 9.9 fL Normal 8.1-13.5 [facility] Comment on above: Performed By: #### C DP, PFA, CP, GLYHGB #### [address] [address] Job Coach/Job Developer: Savage Jacob MD Platelets (Bld) [#/Vol] 237 10*3/uL Normal 138-453 [facility] Comment on above: Performed By: #### C DP, PFA, CP, GLYHGB #### [address] [address] Job Coach/Job Developer: Savage Jacob MD RBC (Bld) [#/Vol] 2.89 10*6/uL Low 3.95-5.11 [facility] Comment on above: Performed By: #### C DP, PFA, CP, GLYHGB #### [address] [address] Job Coach/Job Developer: Savage Jacob MD WBC (Bld) [#/Vol] 14.3 10*3/uL High 3.5-11.3 [facility] Comment on above: Performed By: #### C DP, PFA, CP, GLYHGB #### [facility] [address] [place] [address] Job Coach/Job Developer: Savage Jacob MD Erythrocyte distribution width (RBC) [Ratio] 15.5 % High 11.8 - 14.4 % [place] Hematocrit (Bld) [Volume fraction] 27.5 % Low 36.3 - 47.1 % [place] Hemoglobin (Bld) [Mass/Vol] 8.3 g/dL Low 11.9 - 15.1 g/dL [place] Interpretation and review of laboratory results Abnormal [place] MCH (RBC) [Entitic mass] 28.7 pg 25.2 - 33.5 pg [place] MCHC (RBC) [Mass/Vol] 30.2 g/dL 28.4 - 34.8 g/dL [place] MCV (RBC) [Entitic vol] 95.2 fL 82.6 - 102.9 fL [place] Platelet mean volume (Bld) [Entitic vol] 9.9 fL 8.1 - 13.5 fL [place] Platelets (Bld) [#/Vol] 237 10*3/uL [place] RBC (Bld) [#/Vol] 2.89 10*6/uL Low 3.95 - 5.1 1 m/uL [place] WBC (Bld) [#/Vol] 14.3 10*3/uL High [place] WBC (Bld) [#/Vol] 2.0 10*3/uL High 0.0 per 10 0 WBC [place] CHLORIDE (POC)on 07-10-2019 POC Chloride 105 mmol/L 98 - 107 mmol/L [place] POC Chloride 105 mmol/L 98 - 107 mmol/L [place] CT HEAD WO CONTRASTon 2019 CT [...] Loki العلي MD 07/10/19 Final result Normal [place] Creatinine W/GFR Point of Ca reon 07-10-2019 GFR Comment 45 mL/min Low >60 [place] GFR Comment [place] GFR Non- 37 mL/min Low >60 [place] POC Creatinine 1.39 mg/dL High 0.51 - 1.19 mg/dL [place] GFR Comment 44 mL/min Low >60 [place] GFR Comment [place] GFR Non- 36 mL/min Low >60 [place] POC Creatinine 1.44 mg/dL High 0.51 - 1.19 mg/dL [place] EKG 12 [place]on 07-10-2019 Atrial Rate 68 BPM [place] P [place] 60 degrees [place] P-R Interval 184 ms [place] Q-T Interval 422 ms [place] QRS Duration 88 ms [place] QTc Calculation (Bazett) 448 ms [place] R [place] 43 degrees [facility], [place] T [place] 33 degrees [place] Ventricular Rate 68 BPM [facility], [facility], [place] Hemoglobin and hematocrit, b loodon 07-10-2019 POC Hematocrit 25 % Low 36 - 46 % [place] POC Hemoglobin 8.4 g/dL Low 12 - 16 g/dL [facility] [place] POC Hematocrit 25 % Low 36 - 46 % [facility], [place] POC Hemoglobin 8.5 g/dL Low 12 - 16 g/dL [facility], [place] Lactic Acid, POCon 0 POC Lactic Acid 0.87 mmol/L 0.56 - 1.39 mmol/L [place] POC Lactic Acid 0.69 mmol/L 0.56 - 1.39 mmol/L [place] POC Lactic Acid 0.47 mmol/L Low 0.56 - 1.39 mmol/L [place] POC Lactic Acid 0.32 mmol/L Low 0.56 - 1.39 mmol/L [place] Magnesiumon 07-10-2019 Magnesium [Mass/Vol] 2.2 mg/dL Normal 1.6-2.6 [facility] Comment on above: Performed By: #### C DP, PFA, CP, GLYHGB #### [facility] [address] [id number] Job Coach/Job Developer: Savage Jacob MD Magnesium [Mass/Vol] 2.2 mg/dL 1.6 - 2 .6 mg/dL [place] Otheron 07-10-2019 Interpretation and review of laboratory results Abnormal [place] Interpretation and review of laboratory results Abnormal [place] Interpretation and review of laboratory results Abnormal [place] Interpretation and review of laboratory results Abnormal [place] POC Glucose Fingerstickon Interpretation and review of laboratory results Abnormal [place] POC Glucose 238 mg/dL High 65 - 105 mg/dL [place] Interpretation and review of laboratory results Abnormal [place] POC Glucose 183 mg/dL High 65 - 105 mg/dL [place] Interpretation and review of laboratory results Abnormal [place] POC Glucose 135 mg/dL High 65 - 105 mg/dL [place] Interpretation and review of laboratory results Abnormal [place] POC Glucose 201 mg/dL High 65 - 105 mg/dL [place] Interpretation and review of laboratory results Abnormal [place] POC Glucose 201 mg/dL High 65 - 105 mg/dL [place] POCT Glucoseon 07-10-2019 POC Glucose 132 mg/dL High 74 - 100 mg/dL [place] POC Glucose 237 mg/dL High 74 - 100 mg/dL [place] POC Glucose 227 mg/dL High 74 - 100 mg/dL [place] POC Glucose 241 mg/dL High 74 - 100 mg/dL [place] POTASSIUM (POC)on 07-10-2019 POC Potassium 3.7 mmol/L 3.5 - 4.5 mmol/L [place] POC Potassium 3.7 mmol/L 3.5 - 4.5 mmol/L [place] PTon 07-10-2019 INR Coag (PPP) [Relative time] 1.4 {INR} Normal [facility] Comment on above: Result Comment: Therapeutic Range: Moderate Anticoagulant Intensity: INR = 2.0-3.0 High Anticoagulant Intensity: INR = 2.5-3.5 Performed By: #### C DP, PFA, CP, GLYHGB #### [facility] [address] [place] [address] Job Coach/Job Developer: Savage Jacob MD PT Coag (PPP) [Time] 14.3 s High 9.0-12.0 [facility] Comment on above: Performed By: #### C DP, PFA, CP, GLYHGB #### [facility] [address] [place] [address] Job Coach/Job Developer: Savage Jacob MD Phosphoruson 07-10-2019 Phosphate [Mass/Vol] 3.2 mg/dL 2.6 - 4 .5 mg/dL [place] Phosphorus, Inorg.on 020 Phosphorus, Inorg. 3.2 mg/dL Normal 2.6-4.5 [facility] Comment on above: Performed By: #### C DP, PFA, CP, GLYHGB #### [facility] [address] [place] [address] Job Coach/Job Developer: Savage Jacob MD Protime-INRon 07-10-2019 INR Coag (PPP) [Relative time] 1.4 {INR} [place] Interpretation and review of laboratory results Abnormal [place] PT Coag (PPP) [Time] 14.3 s High [place] SODIUM (POC)on 07-10-2019 POC Sodium 145 mmol/L 138 - 146 mmol/L [place] POC Sodium 146 mmol/L 138 - 146 mmol/L [place] XR CHEST PORTABLEon 07-10-19 20 XR [...] Blas Zimmer MD 07/10/19 Final result Normal [place] APTTon 07-09-2019 aPTT Coag (Bld) [Time] 37.4 s High 20.5-30.5 [facility] Comment on above: Performed By: #### C DP, PFA, CP, GLYHGB #### [facility] [address] [place], [place] [phone] Job Coach/Job Developer: Savage Jacob MD aPTT Coag (Bld) [Time] 37.4 s High [place] Interpretation and review of laboratory results Abnormal [place] aPTT Coag (Bld) [Time] 35.2 s High 20.5-30.5 [facility] Comment on above: Performed By: #### C DP, PFA, CP, GLYHGB #### [facility] [place], [place] [phone] Job Coach/Job Developer: Savage Jacob MD aPTT Coag (Bld) [Time] 35.2 s High [place] Ammoniaon 07-09-2019 Ammonia (P) [Mass/Vol] 40 umol/L Normal 11-51 [facility] Comment on above: Performed By: #### C DP, PFA, CP, GLYHGB #### [facility] [employer] [address] [place] [address] [phone] Job Coach/Job Developer: Savage Jacob MD Arterial Blood Gas, POCon Graham Test NOT REPORTED [place] FIO2 40.0 [place] Interpretation and review of laboratory results Abnormal [place] Mode NOT REPORTED [place] Negative Base Excess, Art NOT REPORTED [place] O2 Device/Flow/% BIPAP [place] POC HCO3 28.0 mmol/L 21 - 28 mmol/L [place] POC O2 SAT 97 % 94 - 98 % [place] POC pCO2 51.0 High [place] POC pCO2 Temp NOT REPORTED mm Hg [facility] lth- [place] POC pH 7.348 Low [place] POC pH Temp NOT REPORTED [facility] h- [place] POC PO2 96.3 [place] POC pO2 Temp NOT REPORTED mm Hg [facility] th- [place] Positive Base Excess, Art 2 [place] Pt Temp NOT REPORTED [place] Sample Site Arterial Line [place] TCO2 (calc), Art 30 mmol/L High 22 - 29 mmol/L [place] BASIC METABOLIC PANELon 06-23 Anion gap [Moles/Vol] 13 mmol/L 9 - 17 mmol/L [place] Bun/Cre Ratio NOT REPORTED [place] Calcium [Mass/Vol] 8.3 mg/dL Low 8.6 - 10. 4 mg/dL [place] Chloride [Moles/Vol] 106 mmol/L 98 - 10 7 mmol/L [place] CO2 [Moles/Vol] 25 mmol/L 20 - 31 mmol/L [place] Creatinine [Mass/Vol] 1.32 mg/dL High 0.5 - 0.9 mg/dL [place] GFR 48 mL/min Low >60 [place] GFR Comment [place] GFR Non- 40 mL/min Low >60 [place] GFR Staging NOT REPORTED [place] Glucose [Mass/Vol] 205 mg/dL High 70 - 99 mg/dL [place] Potassium [Moles/Vol] 3.9 mmol/L 3.7 - 5.3 mmol/L [place] Sodium [Moles/Vol] 144 mmol/L 135 - 144 mmol/L [place] Urea nitrogen [Mass/Vol] 46 mg/dL High 8 - 23 mg/dL [place] Basic Metabolic Profon 07-09 (cont.) Normal [facility] Comment on above: Result Comment: Aver age GFR for 70 or more years old: 75 mL/min/1.73sq m Chronic Kidney Disease: <60 mL/min/1.73sq m Kidney failure: <15 mL/min/1.73sq m eGFR calculated using average adult body mass. Additional eGFR calculator available at: http://www.MFG.com.[employer]/multiple_crcl_2012.htm Performed By: #### C DP, PFA, CP, GLYHGB #### [facility] [address] [place] [address] Job Coach/Job Developer: Savage Jacob MD Anion gap [Moles/Vol] 13 mmol/L Normal 9-17 [facility] Comment on above: Performed By: #### C DP, PFA, CP, GLYHGB #### [address] [address] Job Coach/Job Developer: Savage Jacob MD Calcium [Mass/Vol] 8.3 mg/dL Low 8.6-10.4 [facility] Comment on above: Performed By: #### C DP, PFA, CP, GLYHGB #### [address] [address] Job Coach/Job Developer: Savage Jacob MD Chloride [Moles/Vol] 106 mmol/L Normal 98-107 [facility] Comment on above: Performed By: #### C DP, PFA, CP, GLYHGB #### [address] [address] Job Coach/Job Developer: Savage Jacob MD CO2 [Moles/Vol] 25 mmol/L Normal 20-31 [facility] Comment on above: Performed By: #### C DP, PFA, CP, GLYHGB #### [address] [address] Job Coach/Job Developer: Savage Jacob MD Creatinine [Mass/Vol] 1.32 mg/dL High 0.50-0.90 [facility] Comment on above: Performed By: #### C DP, PFA, CP, GLYHGB #### [facility] [address] [place] [address] Job Coach/Job Developer: Savage Jacob MD GFR, Amer 48 mL/min Low >60 [facility] Comment on above: Performed By: #### C DP, PFA, CP, GLYHGB #### [facility] [address] [place] [address] [place] [address] Job Coach/Job Developer: Savage Jacob MD GFR,non Amer 40 mL/min Low >60 [facility] Comment on above: Performed By: #### C DP, PFA, CP, GLYHGB #### [address] [address] Job Coach/Job Developer: Savage Jacob MD Glucose [Mass/Vol] 205 mg/dL High 70-99 [facility] Comment on above: Performed By: #### C DP, PFA, CP, GLYHGB #### [address] [address] Job Coach/Job Developer: Savage Jacob MD Potassium [Moles/Vol] 3.9 mmol/L Normal 3.7-5.3 [facility] Comment on above: Performed By: #### C DP, PFA, CP, GLYHGB #### [address] [address] Job Coach/Job Developer: Savage Jacob MD Sodium [Moles/Vol] 144 mmol/L Normal 135-144 [facility] Comment on above: Performed By: #### C DP, PFA, CP, GLYHGB #### [address] [address] Job Coach/Job Developer: Savage Jacob MD Urea nitrogen [Mass/Vol] 46 mg/dL High 8- [facility] Comment on above: Performed By: #### C DP, PFA, CP, GLYHGB #### [address] [address] Job Coach/Job Developer: Savage Jacob MD BUN/CRE Ratio NOT REPORTED Normal - [facility] Comment on above: Performed By: #### C DP, PFA, CP, GLYHGB #### [address] [address] Job Coach/Job Developer: Savage Jacob MD Staging: NOT REPORTED Normal [facility] Comment on above: Performed By: #### C DP, PFA, CP, GLYHGB #### [facility] [address] [place] [address] Job Coach/Job Developer: Savage Jacob MD CBCon 07-09-2019 Erythrocyte distribution width (RBC) [Ratio] 15.3 % High 11.8-14.4 [facility] Comment on above: Performed By: #### C DP, PFA, CP, GLYHGB #### [facility] [address] [place] [address] Job Coach/Job Developer: Savage Jacob MD Hematocrit (Bld) [Volume fraction] 25.9 % Low 36.3-47.1 [facility] Comment on above: Performed By: #### C DP, PFA, CP, GLYHGB #### [facility] [address] [place] [address] Job Coach/Job Developer: Savage Jacob MD Hemoglobin (Bld) [Mass/Vol] 8.3 g/dL Low 11.9-15.1 [facility] Comment on above: Performed By: #### C DP, PFA, CP, GLYHGB #### [facility] [address] [place] [address] Job Coach/Job Developer: Savage Jacob MD MCH (RBC) [Entitic mass] 29.5 pg Normal 25.2-33.5 [facility] Comment on above: Performed By: #### C DP, PFA, CP, GLYHGB #### [facility] [address] [place] [address] Job Coach/Job Developer: Savage Jacob MD MCHC (RBC) [Mass/Vol] 32.0 g/dL Normal 28.4-34.8 [facility] Comment on above: Performed By: #### C DP, PFA, CP, GLYHGB #### [facility] [address] [place] [address] Job Coach/Job Developer: Savage Jacob MD MCV (RBC) [Entitic vol] 92.2 fL Normal 82.6-102.9 [facility] Comment on above: Performed By: #### C DP, PFA, CP, GLYHGB #### [address] [address] Job Coach/Job Developer: Savage Jacob MD NRBC Automated 1.2 per 100 WBC High 0.0 [facility] Comment on above: Performed By: #### C DP, PFA, CP, GLYHGB #### [address] [address] Job Coach/Job Developer: Savage Jacob MD Platelet mean volume (Bld) [Entitic vol] 10.2 fL Normal 8.1-13.5 [facility] Comment on above: Performed By: #### C DP, PFA, CP, GLYHGB #### [place] [address] Job Coach/Job Developer: Savage Jacob MD Platelets (Bld) [#/Vol] 188 10*3/uL Normal 138-453 [facility] Comment on above: Performed By: #### C DP, PFA, CP, GLYHGB #### [facility] [employer] [address] [place] [address] Job Coach/Job Developer: Savage Jacob MD RBC (Bld) [#/Vol] 2.81 10*6/uL Low 3.95-5.11 [facility] Comment on above: Performed By: #### C DP, PFA, CP, GLYHGB #### [facility] [address] [place] [address] Job Coach/Job Developer: Savage Jacob MD WBC (Bld) [#/Vol] 11.2 10*3/uL Normal 3.5-11.3 [facility] Comment on above: Performed By: #### C DP, PFA, CP, GLYHGB #### [facility] [address] [place], [place] [phone] Job Coach/Job Developer: Savage Jacob MD Erythrocyte distribution width (RBC) [Ratio] 15.3 % High 11.8 - 14.4 % [place] Hematocrit (Bld) [Volume fraction] 25.9 % Low 36.3 - 47.1 % [place] Hemoglobin (Bld) [Mass/Vol] 8.3 g/dL Low 11.9 - 15.1 g/dL [place] Interpretation and review of laboratory results Abnormal [place] MCH (RBC) [Entitic mass] 29.5 pg 25.2 - 33.5 pg [place] MCHC (RBC) [Mass/Vol] 32.0 g/dL 28.4 - 34.8 g/dL [place] MCV (RBC) [Entitic vol] 92.2 fL 82.6 - 102.9 fL [place] Platelet mean volume (Bld) [Entitic vol] 10.2 fL 8.1 - 13.5 fL [place] Platelets (Bld) [#/Vol] 188 10*3/uL [place] RBC (Bld) [#/Vol] 2.81 10*6/uL Low 3.95 - 5.1 1 m/uL [place] WBC (Bld) [#/Vol] 11.2 10*3/uL [place] WBC (Bld) [#/Vol] 1.2 10*3/uL High 0.0 per 10 0 WBC [place] Erythrocyte distribution width (RBC) [Ratio] 15.2 % High 11.8-14.4 [facility] Comment on above: Performed By: #### C DP, PFA, CP, GLYHGB #### [facility] [address] [place], [place] [phone] Job Coach/Job Developer: Savage Jacob MD Hematocrit (Bld) [Volume fraction] 26.1 % Low 36.3-47.1 [facility] Comment on above: Performed By: #### C DP, PFA, CP, GLYHGB #### [address] [address] Job Coach/Job Developer: Savage Jacob MD Hemoglobin (Bld) [Mass/Vol] 8.2 g/dL Low 11.9-15.1 [facility] Comment on above: Performed By: #### C DP, PFA, CP, GLYHGB #### [address] [address] Job Coach/Job Developer: Savage Jacob MD MCH (RBC) [Entitic mass] 28.7 pg Normal 25.2-33.5 [facility] Comment on above: Performed By: #### C DP, PFA, CP, GLYHGB #### [address] [address] Job Coach/Job Developer: Savage Jacob MD MCHC (RBC) [Mass/Vol] 31.4 g/dL Normal 28.4-34.8 [facility] Comment on above: Performed By: #### C DP, PFA, CP, GLYHGB #### [place] [address] Job Coach/Job Developer: Savage Jacob MD MCV (RBC) [Entitic vol] 91.3 fL Normal 82.6-102.9 [facility] Comment on above: Performed By: #### C DP, PFA, CP, GLYHGB #### [place] [address] Job Coach/Job Developer: Savage Jacob MD NRBC Automated 1.0 per 100 WBC High 0.0 [facility] Comment on above: Performed By: #### C DP, PFA, CP, GLYHGB #### [address] [address] Job Coach/Job Developer: Savage Jacob MD Platelet mean volume (Bld) [Entitic vol] 9.9 fL Normal 8.1-13.5 [facility] Comment on above: Performed By: #### C DP, PFA, CP, GLYHGB #### [facility] [address] [place] [address] Job Coach/Job Developer: Savage Jacob MD Platelets (Bld) [#/Vol] 173 10*3/uL Normal 138-453 [facility] Comment on above: Performed By: #### C DP, PFA, CP, GLYHGB #### [facility] [employer] [address] [place] [address] Job Coach/Job Developer: Savage Jacob MD RBC (Bld) [#/Vol] 2.86 10*6/uL Low 3.95-5.11 [facility] Comment on above: Performed By: #### C DP, PFA, CP, GLYHGB #### [address] [address] Job Coach/Job Developer: Savage Jacob MD WBC (Bld) [#/Vol] 11.1 10*3/uL Normal 3.5-11.3 [facility] Comment on above: Performed By: #### C DP, PFA, CP, GLYHGB #### [facility] [facility] [place] [address] Job Coach/Job Developer: Savage Jacob MD Erythrocyte distribution width (RBC) [Ratio] 15.2 % High 11.8 - 14.4 % [place] Hematocrit (Bld) [Volume fraction] 26.1 % Low 36.3 - 47.1 % [place] Hemoglobin (Bld) [Mass/Vol] 8.2 g/dL Low 11.9 - 15.1 g/dL [place] Interpretation and review of laboratory results Abnormal [place] MCH (RBC) [Entitic mass] 28.7 pg 25.2 - 33.5 pg [place] MCHC (RBC) [Mass/Vol] 31.4 g/dL 28.4 - 34.8 g/dL [place] MCV (RBC) [Entitic vol] 91.3 fL 82.6 - 102.9 fL [place] Platelet mean volume (Bld) [Entitic vol] 9.9 fL 8.1 - 13.5 fL [place] Platelets (Bld) [#/Vol] 173 10*3/uL [place] RBC (Bld) [#/Vol] 2.86 10*6/uL Low 3.95 - 5.1 1 m/uL [place] WBC (Bld) [#/Vol] 11.1 10*3/uL [place] WBC (Bld) [#/Vol] 1.0 10*3/uL High 0.0 per 10 0 WBC [place] Comp Metabolic Profon 2019 (cont.) Normal [facility] Comment on above: Result Comment: Aver age GFR for 70 or more years old: 75 mL/min/1.73sq m Chronic Kidney Disease: <60 mL/min/1.73sq m Kidney failure: <15 mL/min/1.73sq m eGFR calculated using average adult body mass. Additional eGFR calculator available at: http://www.[employer]/multiple_crcl_2011.htm Performed By: #### C DP, PFA, CP, GLYHGB #### [employer] [address] [place] [address] Job Coach/Job Developer: Savage Jacob MD Albumin [Mass/Vol] 3.3 g/dL Low 3.5-5.2 [facility] Comment on above: Performed By: #### C DP, PFA, CP, GLYHGB #### [facility] [address] [place] [address] Job Coach/Job Developer: Savage Jacob MD Albumin/Globulin [Mass ratio] 1.4 {ratio} Normal 1.0-2.5 [facility] Comment on above: Performed By: #### C DP, PFA, CP, GLYHGB #### [facility] [address] [place] [address] Job Coach/Job Developer: Savage Jacob MD Alkaline Phos 67 U/L Normal 35-104 [facility] Comment on above: Performed By: #### C DP, PFA, CP, GLYHGB #### [facility] [employer] [address] [place] [address] Job Coach/Job Developer: Savage Jacob MD ALT [Catalytic activity/Vol] 17 U/L Normal 5-33 [facility] Comment on above: Performed By: #### C DP, PFA, CP, GLYHGB #### [address] [address] Job Coach/Job Developer: Savage Jacob MD Anion gap [Moles/Vol] 11 mmol/L Normal 9-17 [facility] Comment on above: Performed By: #### C DP, PFA, CP, GLYHGB #### [address] [address] Job Coach/Job Developer: Savage Jacob MD AST [Catalytic activity/Vol] 29 U/L Normal <32 [facility] Comment on above: Performed By: #### C DP, PFA, CP, GLYHGB #### [facility] [employer] [address] [place] [address] Job Coach/Job Developer: Savage Jacob MD Bilirubin Ql (U) 0.36 mg/dL Normal 0.3-1.2 [facility] Comment on above: Performed By: #### C DP, PFA, CP, GLYHGB #### [facility] [employer] [address] [place] [address] Job Coach/Job Developer: Savage Jacob MD Calcium [Mass/Vol] 8.6 mg/dL Normal 8.6-10.4 [facility] Comment on above: Performed By: #### C DP, PFA, CP, GLYHGB #### [facility] [employer] [address] [place] [address] Job Coach/Job Developer: Savage Jacob MD Chloride [Moles/Vol] 107 mmol/L Normal 98-107 [facility] Comment on above: Performed By: #### C DP, PFA, CP, GLYHGB #### [address] [address] Job Coach/Job Developer: Savage Jacob MD CO2 [Moles/Vol] 24 mmol/L Normal 20-31 [facility] Comment on above: Performed By: #### C DP, PFA, CP, GLYHGB #### [address] [address] Job Coach/Job Developer: Savage Jacob MD Creatinine [Mass/Vol] 1.48 mg/dL High 0.50-0.90 [facility] Comment on above: Performed By: #### C DP, PFA, CP, GLYHGB #### [address] [address] Job Coach/Job Developer: Savage Jacob MD GFR, Amer 42 mL/min Low >60 [facility] Comment on above: Performed By: #### C DP, PFA, CP, GLYHGB #### [address] [address] Job Coach/Job Developer: Savage Jacob MD GFR,non Amer 35 mL/min Low >60 [facility] Comment on above: Performed By: #### C DP, PFA, CP, GLYHGB #### [address] [address] Job Coach/Job Developer: Savage Jacob MD Glucose [Mass/Vol] 179 mg/dL High 70-99 [facility] Comment on above: Performed By: #### C DP, PFA, CP, GLYHGB #### [address] [address] Job Coach/Job Developer: Savage Jacob MD Potassium [Moles/Vol] 3.7 mmol/L Normal 3.7-5.3 [facility] Comment on above: Performed By: #### C DP, PFA, CP, GLYHGB #### [facility] [address] [place] [address] Job Coach/Job Developer: Savage Jacob MD Protein [Mass/Vol] 5.7 g/dL Low 6.4-8.3 [facility] Comment on above: Performed By: #### C DP, PFA, CP, GLYHGB #### [facility] [address] [place] [address] Job Coach/Job Developer: Savage Jacob MD Sodium [Moles/Vol] 142 mmol/L Normal 135-144 [facility] Comment on above: Performed By: #### C DP, PFA, CP, GLYHGB #### [address] [address] Job Coach/Job Developer: Savage Jacob MD Urea nitrogen [Mass/Vol] 46 mg/dL High 8-23 [facility] Comment on above: Performed By: #### C DP, PFA, CP, GLYHGB #### [address] [address] Job Coach/Job Developer: Savage Jacob MD BUN/CRE Ratio NOT REPORTED Normal 9-20 [facility] Comment on above: Performed By: #### C DP, PFA, CP, GLYHGB #### [facility] [employer] [address] [place] [address] Job Coach/Job Developer: Savage Jacob MD Staging: NOT REPORTED Normal [facility] Comment on above: Performed By: #### C DP, PFA, CP, GLYHGB #### [facility] [employer] [address] [place] [address] Job Coach/Job Developer: Savage Jacob MD Comprehensive Metabolic Pane florentin 07-09-2019 Albumin [Mass/Vol] 3.3 g/dL Low 3.5 - 5.2 g/dL [facility], [place] Albumin/Globulin [Mass ratio] 1.4 {ratio} [place] ALP [Catalytic activity/Vol] 67 U/L 35 - 104 U/L [place] ALT [Catalytic activity/Vol] 17 U/L 5 - 33 U/L [place] Anion gap [Moles/Vol] 11 mmol/L 9 - 17 mmol/L [place] AST [Catalytic activity/Vol] 29 U/L <32 [place] Bilirubin Ql (U) 0.36 mg/dL 0.3 - 1.2 mg/dL [place] Bun/Cre Ratio NOT REPORTED [place] Calcium [Mass/Vol] 8.6 mg/dL 8.6 - 10. 4 mg/dL [place] Chloride [Moles/Vol] 107 mmol/L 98 - 10 7 mmol/L [place] CO2 [Moles/Vol] 24 mmol/L 20 - 31 mmol/L [place] Creatinine [Mass/Vol] 1.48 mg/dL High 0.5 - 0.9 mg/dL [place] GFR 42 mL/min Low >60 [place] GFR Comment [place] GFR Non- 35 mL/min Low >60 [place] GFR Staging NOT REPORTED [place] Glucose [Mass/Vol] 179 mg/dL High 70 - 99 mg/dL [place] Potassium [Moles/Vol] 3.7 mmol/L 3.7 - 5.3 mmol/L [place] Protein [Mass/Vol] 5.7 g/dL Low 6.4 - 8.3 g/dL [place] Sodium [Moles/Vol] 142 mmol/L 135 - 144 mmol/L [place] Urea nitrogen [Mass/Vol] 46 mg/dL High 8 - 23 mg/dL [place] EKG 12 Leadon 07-09-2019 Atrial Rate 97 BPM [place] Atrial Rate 107 BPM [place] P [place] 35 degrees [facility] [place] P-R Interval 204 ms [facility], [place] Q-T Interval 366 ms [facility] [place] Q-T Interval 358 ms [facility] [place] QRS Duration 88 ms [facility] [place] QRS Duration 86 ms [facility] [place] QTc Calculation (Bazett) 464 ms [facility] [place] QTc Calculation (Bazett) 447 ms [facility] [place] R [place] 28 degrees [facility] [place] R [place] 22 degrees [facility] [place] T [place] 2 degrees [facility] [place] T [place] -24 degrees [facility], [place] Ventricular Rate 97 BPM [facility]- [place], [place] Ventricular Rate 94 BPM [facility] [place] Lactic Acid, POCon 0 POC Lactic Acid 0.64 mmol/L 0.56 - 1.39 mmol/L [facility], [place] Liver Profileon 07-09-2019 Albumin [Mass/Vol] 3.3 g/dL Low 3.5-5.2 [facility] Comment on above: Performed By: #### C DP, PFA, CP, GLYHGB #### [facility] [employer] [address] [place] [address] Job Coach/Job Developer: Savage Jacob MD Albumin/Globulin [Mass ratio] 1.5 {ratio} Normal 1.0-2.5 [facility] Comment on above: Performed By: #### C DP, PFA, CP, GLYHGB #### [facility] [employer] [address] [place] [address] Job Coach/Job Developer: Savage Jacob MD Alkaline Phos 57 U/L Normal 35-104 [facility] Comment on above: Performed By: #### C DP, PFA, CP, GLYHGB #### [facility] [employer] [facility] [place] [address] Job Coach/Job Developer: Savage Jacob MD ALT [Catalytic activity/Vol] 17 U/L Normal 5-33 [facility] Comment on above: Performed By: #### C DP, PFA, CP, GLYHGB #### [employer] [address] [place] [address] Job Coach/Job Developer: Savage Jacob MD AST [Catalytic activity/Vol] 31 U/L Normal <32 [facility] Comment on above: Performed By: #### C DP, PFA, CP, GLYHGB #### [facility] [employer] [address] [place] [address] Job Coach/Job Developer: Savage Jacob MD Bilirubin Ql (U) 0.38 mg/dL Normal 0.3-1.2 [facility] Comment on above: Performed By: #### C DP, PFA, CP, GLYHGB #### [facility] [employer] [address] [place] [address] Job Coach/Job Developer: Savage Jacob MD Bilirubin, Indirect 0.25 mg/dL Normal 0.00-1.00 [facility] Comment on above: Performed By: #### C DP, PFA, CP, GLYHGB #### [facility] [employer] [address] [place] [address] Job Coach/Job Developer: Savage Jacob MD Bilirubin.direct [Mass/Vol] 0.13 mg/dL Normal <0.31 [facility] Comment on above: Performed By: #### C DP, PFA, CP, GLYHGB #### [facility] [employer] [address] [place] [address] Job Coach/Job Developer: Savage Jacob MD Protein [Mass/Vol] 5.5 g/dL Low 6.4-8.3 [facility] Comment on above: Performed By: #### C DP, PFA, CP, GLYHGB #### [facility] [employer] [address] [place] [phone] Job Coach/Job Developer: Savage Jacob MD Globulin (S) [Mass/Vol] NOT REPORTED Normal 1.5-3.8 [facility] Comment on above: Performed By: #### C DP, PFA, CP, GLYHGB #### [address] [place], [place] [phone] Job Coach/Job Developer: Savage Jacob MD Magnesiumon 07-09-2019 Magnesium [Mass/Vol] 2.3 mg/dL Normal 1.6-2.6 [facility] Comment on above: Performed By: #### C DP, PFA, CP, GLYHGB #### [facility] [address] [place], [place] [phone] Job Coach/Job Developer: Savage Jacob MD Magnesium [Mass/Vol] 2.3 mg/dL 1.6 - 2 .6 mg/dL [place] Otheron 07-09-2019 Interpretation and review of laboratory results Abnormal [place] Interpretation and review of laboratory results Abnormal [place] POC Glucose Fingerstickon Interpretation and review of laboratory results Abnormal [place] POC Glucose 173 mg/dL High 65 - 105 mg/dL [place] Interpretation and review of laboratory results Abnormal [place] POC Glucose 141 mg/dL High 65 - 105 mg/dL [place] Interpretation and review of laboratory results Abnormal [place] POC Glucose 126 mg/dL High 65 - 105 mg/dL [place] POTASSIUM (POC)on 07-09-2019 POC Potassium 3.7 mmol/L 3.5 - 4.5 mmol/L [place] PTon 07-09-2019 INR Coag (PPP) [Relative time] 1.8 {INR} Normal [facility] Comment on above: Result Comment: Therapeutic Range: Moderate Anticoagulant Intensity: INR = 2.0-3.0 High Anticoagulant Intensity: INR = 2.5-3.5 Performed By: #### C DP, PFA, CP, GLYHGB #### [facility] [address] [place], [place] [phone] Job Coach/Job Developer: Savage Jacob MD PT Coag (PPP) [Time] 18.4 s High 9.0-12.0 [facility] Comment on above: Performed By: #### C DP, PFA, CP, GLYHGB #### [employer] [address] [place], [place] [phone] Job Coach/Job Developer: Savage Jacob MD Phosphoruson 07-09-2019 Phosphate [Mass/Vol] 2.4 mg/dL Low 2.6 - 4 .5 mg/dL [place] Phosphorus, Inorg.on 020 Phosphorus, Inorg. 2.4 mg/dL Low 2.6-4.5 [facility] Comment on above: Performed By: #### C DP, PFA, CP, GLYHGB #### [employer] [address] [place] [address] [phone] Job Coach/Job Developer: Savage Jacob MD Protime-INRon 07-09-2019 INR Coag (PPP) [Relative time] 1.8 {INR} [place] Interpretation and review of laboratory results Abnormal [place] PT Coag (PPP) [Time] 18.4 s High [place] Triglycerideson 07-09-2019 Triglyceride [Mass/Vol] 95 mg/dL Normal <150 [facility] Comment on above: Result Comment: Triglyceride Guidelines: <150 Desirable 150-199 Borderline 200-499 High >499 Very high Based on AHA Guidelines for fasting triglyceride, February 2012. Performed By: #### C DP, PFA, CP, GLYHGB #### [employer] [address] [place] [address] [phone] Job Coach/Job Developer: Savage Jacob MD Triglyceride [Mass/Vol] 95 mg/dL <150 [place] XR CHEST PORTABLEon 07-09-19 20 XR [...] Loki العلي MD 07/09/19 Final result Normal [place], [place] AMMONIAon 07-08-2019 Ammonia (P) [Mass/Vol] 40 umol/L 11 - 51 umol/L [place] Arterial Blood Gas, POCon Graham Test NOT REPORTED [place] FIO2 60.0 [place] Mode NOT REPORTED [place] Negative Base Excess, Art NOT REPORTED [place] O2 Device/Flow/% BIPAP [place] POC HCO3 25.8 mmol/L 21 - 28 mmol/L [place] POC O2 SAT 96 % 94 - 98 % [place] POC pCO2 43.5 [place] POC pCO2 Temp NOT REPORTED mm Hg [place] POC pH 7.380 [place] POC pH Temp NOT REPORTED [place] POC PO2 86.9 [place] POC pO2 Temp NOT REPORTED mm Hg [place], [place] Positive Base Excess, Art 0 [place] Pt Temp NOT REPORTED [place] Sample Site NOT REPORTED [place] TCO2 (calc), Art 27 mmol/L 22 - 29 mmol/L [place] Graham Test NOT REPORTED [place] FIO2 60.0 [place] Mode NOT REPORTED [place] Negative Base Excess, Art 2 [place] O2 Device/Flow/% BIPAP [place] POC HCO3 24.2 mmol/L 21 - 28 mmol/L [place] POC O2 SAT 96 % 94 - 98 % [place] POC pCO2 43.6 [place] POC pCO2 Temp NOT REPORTED mm Hg [place] POC pH 7.351 [place] POC pH Temp NOT REPORTED [place] POC PO2 86.3 [place] POC pO2 Temp NOT REPORTED mm Hg [place], [place] Positive Base Excess, Art NOT REPORTED [place] Pt Temp NOT REPORTED [place] Sample Site NOT REPORTED [place] TCO2 (calc), Art 26 mmol/L 22 - 29 mmol/L [place] BASIC METABOLIC PANELon 06-23 Anion gap [Moles/Vol] 16 mmol/L 9 - 17 mmol/L [place] Bun/Cre Ratio NOT REPORTED [place] Calcium [Mass/Vol] 8.5 mg/dL Low 8.6 - 10. 4 mg/dL [place] Chloride [Moles/Vol] 107 mmol/L 98 - 10 7 mmol/L [place] CO2 [Moles/Vol] 22 mmol/L 20 - 31 mmol/L [place] Creatinine [Mass/Vol] 1.48 mg/dL High 0.5 - 0.9 mg/dL [place] GFR 42 mL/min Low >60 [place] GFR Comment [place] GFR Non- 35 mL/min Low >60 [place] GFR Staging NOT REPORTED [place] Glucose [Mass/Vol] 195 mg/dL High 70 - 99 mg/dL [place] Interpretation and review of laboratory results Abnormal [place] Potassium [Moles/Vol] 3.6 mmol/L Low 3.7 - 5.3 mmol/L [place] Sodium [Moles/Vol] 145 mmol/L High 135 - 144 mmol/L [place] Urea nitrogen [Mass/Vol] 48 mg/dL High 8 - 23 mg/dL [place] Basic Metabolic Panelon 06-23 Anion gap [Moles/Vol] 15 mmol/L 9 - 17 mmol/L [place] Bun/Cre Ratio NOT REPORTED [place] Calcium [Mass/Vol] 8.4 mg/dL Low 8.6 - 10. 4 mg/dL [place] Chloride [Moles/Vol] 104 mmol/L 98 - 10 7 mmol/L [place] CO2 [Moles/Vol] 22 mmol/L 20 - 31 mmol/L [place] Creatinine [Mass/Vol] 1.62 mg/dL High 0.5 - 0.9 mg/dL [place] GFR 38 mL/min Low >60 [place] GFR Comment [place] GFR Non- 31 mL/min Low >60 [place] GFR Staging NOT REPORTED [place] Glucose [Mass/Vol] 185 mg/dL High 70 - 99 mg/dL [place] Interpretation and review of laboratory results Abnormal [place] Potassium [Moles/Vol] 4.1 mmol/L 3.7 - 5.3 mmol/L [place] Sodium [Moles/Vol] 141 mmol/L 135 - 144 mmol/L [place] Urea nitrogen [Mass/Vol] 52 mg/dL High 8 - 23 mg/dL [place] Basic Metabolic Profon 07-08 (cont.) Normal [facility] Comment on above: Result Comment: Aver age GFR for 70 or more years old: 75 mL/min/1.73sq m Chronic Kidney Disease: <60 mL/min/1.73sq m Kidney failure: <15 mL/min/1.73sq m eGFR calculated using average adult body mass. Additional eGFR calculator available at: http://www.MFG.com.[employer]/multiple_crcl_2012.htm Performed By: #### C DP, PFA, CP, GLYHGB #### [facility] [employer] [address] [place] [phone] Job Coach/Job Developer: Savage Jacob MD Anion gap [Moles/Vol] 16 mmol/L Normal 9-17 [facility] Comment on above: Performed By: #### C DP, PFA, CP, GLYHGB #### [address] [address] Job Coach/Job Developer: Savage Jacob MD Calcium [Mass/Vol] 8.5 mg/dL Low 8.6-10.4 [facility] Comment on above: Performed By: #### C DP, PFA, CP, GLYHGB #### [address] [address] Job Coach/Job Developer: Savage Jacob MD Chloride [Moles/Vol] 107 mmol/L Normal 98-107 [facility] Comment on above: Performed By: #### C DP, PFA, CP, GLYHGB #### [address] [address] Job Coach/Job Developer: Savage Jacob MD CO2 [Moles/Vol] 22 mmol/L Normal 20-31 [facility] Comment on above: Performed By: #### C DP, PFA, CP, GLYHGB #### [facility] [employer] [address] [place] [address] Job Coach/Job Developer: Savage Jacob MD Creatinine [Mass/Vol] 1.48 mg/dL High 0.50-0.90 [facility] Comment on above: Performed By: #### C DP, PFA, CP, GLYHGB #### [facility] [employer] [address] [place] [address] Job Coach/Job Developer: Savage Jacob MD GFR, Amer 42 mL/min Low >60 [facility] Comment on above: Performed By: #### C DP, PFA, CP, GLYHGB #### [facility] [employer] [address] [place] [address] Job Coach/Job Developer: Savage Jacob MD GFR,non Amer 35 mL/min Low >60 [facility] Comment on above: Performed By: #### C DP, PFA, CP, GLYHGB #### [address] [address] Job Coach/Job Developer: Savage Jacob MD Glucose [Mass/Vol] 195 mg/dL High 70-99 [facility] Comment on above: Performed By: #### C DP, PFA, CP, GLYHGB #### [address] [address] Job Coach/Job Developer: Savage Jacob MD Potassium [Moles/Vol] 3.6 mmol/L Low 3.7-5.3 [facility] Comment on above: Performed By: #### C DP, PFA, CP, GLYHGB #### [address] [address] Job Coach/Job Developer: Savage Jacob MD Sodium [Moles/Vol] 145 mmol/L High 135-144 [facility] Comment on above: Performed By: #### C DP, PFA, CP, GLYHGB #### [address] [address] Job Coach/Job Developer: Savage Jacob MD Urea nitrogen [Mass/Vol] 48 mg/dL High 8- [facility] Comment on above: Performed By: #### C DP, PFA, CP, GLYHGB #### [facility] [employer] [address] [place] [address] Job Coach/Job Developer: Savage Jacob MD BUN/CRE Ratio NOT REPORTED Normal - [facility] Comment on above: Performed By: #### C DP, PFA, CP, GLYHGB #### [facility] [employer] [address] [place] [address] Job Coach/Job Developer: Savage Jacob MD Staging: NOT REPORTED Normal [facility] Comment on above: Performed By: #### C DP, PFA, CP, GLYHGB #### [address] [address] Job Coach/Job Developer: Savage Jacob MD (cont.) Normal [facility] Comment on above: Result Comment: Aver age GFR for 70 or more years old: 75 mL/min/1.73sq m Chronic Kidney Disease: <60 mL/min/1.73sq m Kidney failure: <15 mL/min/1.73sq m eGFR calculated using average adult body mass. Additional eGFR calculator available at: http://www.[employer]/multiple_crcl_2012.htm Performed By: #### C DP, PFA, CP, GLYHGB #### [place] [address] Job Coach/Job Developer: Savage Jacob MD Anion gap [Moles/Vol] 15 mmol/L Normal 9-17 [facility] Comment on above: Performed By: #### C DP, PFA, CP, GLYHGB #### [place] [address] Job Coach/Job Developer: Savage Jacob MD Calcium [Mass/Vol] 8.4 mg/dL Low 8.6-10.4 [facility] Comment on above: Performed By: #### C DP, PFA, CP, GLYHGB #### [facility] [employer] [address] [place] [address] Job Coach/Job Developer: Savage Jacob MD Chloride [Moles/Vol] 104 mmol/L Normal 98-107 [facility] Comment on above: Performed By: #### C DP, PFA, CP, GLYHGB #### [facility] [employer] [address] [place] [address] Job Coach/Job Developer: Savage Jacob MD CO2 [Moles/Vol] 22 mmol/L Normal 20-31 [facility] Comment on above: Performed By: #### C DP, PFA, CP, GLYHGB #### [facility] [employer] [address] [place] [address] Job Coach/Job Developer: Savage Jacob MD Creatinine [Mass/Vol] 1.62 mg/dL High 0.50-0.90 [facility] Comment on above: Performed By: #### C DP, PFA, CP, GLYHGB #### [facility] [employer] [address] [place] [address] Job Coach/Job Developer: Savage Jacob MD GFR, Amer 38 mL/min Low >60 [facility] Comment on above: Performed By: #### C DP, PFA, CP, GLYHGB #### [facility] [employer] [address] [place] [address] Job Coach/Job Developer: Savage Jacob MD GFR,non Amer 31 mL/min Low >60 [facility] Comment on above: Performed By: #### C DP, PFA, CP, GLYHGB #### [address] [address] Job Coach/Job Developer: Savage Jacob MD Glucose [Mass/Vol] 185 mg/dL High 70-99 [facility] Comment on above: Performed By: #### C DP, PFA, CP, GLYHGB #### [facility] [employer] [address] [place] [address] Job Coach/Job Developer: Savage Jacob MD Potassium [Moles/Vol] 4.1 mmol/L Normal 3.7-5.3 [facility] Comment on above: Performed By: #### C DP, PFA, CP, GLYHGB #### [facility] [employer] [address] [place] [address] Job Coach/Job Developer: Savage Jacob MD Sodium [Moles/Vol] 141 mmol/L Normal 135-144 [facility] Comment on above: Performed By: #### C DP, PFA, CP, GLYHGB #### [facility] [address] [place] [phone] Job Coach/Job Developer: Savage Jacob MD Urea nitrogen [Mass/Vol] 52 mg/dL High 01-12 [facility] Comment on above: Performed By: #### C DP, PFA, CP, GLYHGB #### [facility] [address] [place] [address] Job Coach/Job Developer: Savage Jacob MD BUN/CRE Ratio NOT REPORTED Normal 02-09 [facility] Comment on above: Performed By: #### C DP, PFA, CP, GLYHGB #### [facility] [address] [place] [address] Job Coach/Job Developer: Savage Jacob MD Staging: NOT REPORTED Normal [facility] Comment on above: Performed By: #### C DP, PFA, CP, GLYHGB #### [facility] [address] [place] [phone] Job Coach/Job Developer: Savage Jacob [facility] Erythrocyte distribution width (RBC) [Ratio] 15.5 % High 11.8-14.4 [facility] Comment on above: Performed By: #### C DP, PFA, CP, GLYHGB #### [facility] [address] [place] [phone] Job Coach/Job Developer: Savage Jacob MD Hematocrit (Bld) [Volume fraction] 27.0 % Low 36.3-47.1 [facility] Comment on above: Performed By: #### C DP, PFA, CP, GLYHGB #### [facility] [address] [place] [address] Job Coach/Job Developer: Savage Jacob MD Hemoglobin (Bld) [Mass/Vol] 8.4 g/dL Low 11.9-15.1 [facility] Comment on above: Performed By: #### C DP, PFA, CP, GLYHGB #### [address] [address] Job Coach/Job Developer: Savage Jacob MD MCH (RBC) [Entitic mass] 28.4 pg Normal 25.2-33.5 [facility] Comment on above: Performed By: #### C DP, PFA, CP, GLYHGB #### [address] [address] Job Coach/Job Developer: Savage Jacob MD MCHC (RBC) [Mass/Vol] 31.1 g/dL Normal 28.4-34.8 [facility] Comment on above: Performed By: #### C DP, PFA, CP, GLYHGB #### [place] [address] Job Coach/Job Developer: Savage Jacob MD MCV (RBC) [Entitic vol] 91.2 fL Normal 82.6-102.9 [facility] Comment on above: Performed By: #### C DP, PFA, CP, GLYHGB #### [address] [address] Job Coach/Job Developer: Savage Jacob MD NRBC Automated 0.5 per 100 WBC High 0.0 [facility] Comment on above: Performed By: #### C DP, PFA, CP, GLYHGB #### [place] [address] Job Coach/Job Developer: Savage Jacob MD Platelet mean volume (Bld) [Entitic vol] 9.7 fL Normal 8.1-13.5 [facility] Comment on above: Performed By: #### C DP, PFA, CP, GLYHGB #### [place] [address] Job Coach/Job Developer: Savage Jacob MD Platelets (Bld) [#/Vol] 151 10*3/uL Normal 138-453 [facility] Comment on above: Performed By: #### C DP, PFA, CP, GLYHGB #### [facility] [employer] [address] [place], [place] [phone] Job Coach/Job Developer: Savage Jacob MD RBC (Bld) [#/Vol] 2.96 10*6/uL Low 3.95-5.11 [facility] Comment on above: Performed By: #### C DP, PFA, CP, GLYHGB #### [facility] [employer] [address] [place], [place] [phone] Job Coach/Job Developer: Savage Jacob MD WBC (Bld) [#/Vol] 11.1 10*3/uL Normal 3.5-11.3 [facility] Comment on above: Performed By: #### C DP, PFA, CP, GLYHGB #### [facility] [employer] [facility] [place], [place] [phone] Job Coach/Job Developer: Savage Jacob MD Erythrocyte distribution width (RBC) [Ratio] 15.5 % High 11.8 - 14.4 % [place] Hematocrit (Bld) [Volume fraction] 27.0 % Low 36.3 - 47.1 % [place] Hemoglobin (Bld) [Mass/Vol] 8.4 g/dL Low 11.9 - 15.1 g/dL [place] Interpretation and review of laboratory results Abnormal [place] MCH (RBC) [Entitic mass] 28.4 pg 25.2 - 33.5 pg [place] MCHC (RBC) [Mass/Vol] 31.1 g/dL 28.4 - 34.8 g/dL [place] MCV (RBC) [Entitic vol] 91.2 fL 82.6 - 102.9 fL [place] Platelet mean volume (Bld) [Entitic vol] 9.7 fL 8.1 - 13.5 fL [place] Platelets (Bld) [#/Vol] 151 10*3/uL [place] RBC (Bld) [#/Vol] 2.96 10*6/uL Low 3.95 - 5.1 1 m/uL [place] WBC (Bld) [#/Vol] 0.5 10*3/uL High 0.0 per 10 0 WBC [place] WBC (Bld) [#/Vol] 11.1 10*3/uL [place] CT HEAD WO CONTRASTon 2019 CT [...] Jesús Clemons MD 07/08/19 Final result Normal [place] HEPATIC FUNCTION PANELon Albumin [Mass/Vol] 3.3 g/dL Low 3.5 - 5.2 g/dL [place] Albumin/Globulin [Mass ratio] 1.5 {ratio} [place] ALP [Catalytic activity/Vol] 57 U/L 35 - 104 U/L [place] ALT [Catalytic activity/Vol] 17 U/L 5 - 33 U/L [place] AST [Catalytic activity/Vol] 31 U/L <32 [place] Bilirubin Ql (U) 0.38 mg/dL 0.3 - 1.2 mg/dL [place] Bilirubin, Indirect 0.25 mg/dL 0 - 1 mg/dL [place] Bilirubin.direct [Mass/Vol] 0.13 mg/dL <0.31 [place] Globulin NOT REPORTED 1.5 - 3.8 g/dL [place] Interpretation and review of laboratory results Abnormal [place] Protein [Mass/Vol] 5.5 g/dL Low 6.4 - 8.3 g/dL [place] Magnesiumon 07-08-2019 Magnesium [Mass/Vol] 2.3 mg/dL Normal 1.6-2.6 [facility] Comment on above: Performed By: #### C DP, PFA, CP, GLYHGB #### [facility] [employer] [facility] [place] [address] Job Coach/Job Developer: Savage Jacob MD Magnesium [Mass/Vol] 2.3 mg/dL 1.6 - 2 .6 mg/dL [place] POC Glucose Fingerstickon Interpretation and review of laboratory results Abnormal [place] POC Glucose 187 mg/dL High 65 - 105 mg/dL [place] Interpretation and review of laboratory results Abnormal [place] POC Glucose 123 mg/dL High 65 - 105 mg/dL [place] Interpretation and review of laboratory results Abnormal [place] POC Glucose 180 mg/dL High 65 - 105 mg/dL [place] Interpretation and review of laboratory results Abnormal [place] POC Glucose 174 mg/dL High 65 - 105 mg/dL [place] POCT Glucoseon 07-08-2019 Interpretation and review of laboratory results Abnormal [place] POC Glucose 199 mg/dL High 74 - 100 mg/dL [place] POTASSIUM (POC)on 07-08-2019 POC Potassium 3.5 mmol/L 3.5 - 4.5 mmol/L [place] PTon 07-08-2019 INR Coag (PPP) [Relative time] 1.7 {INR} Normal [facility] Comment on above: Result Comment: Therapeutic Range: Moderate Anticoagulant Intensity: INR = 2.0-3.0 High Anticoagulant Intensity: INR = 2.5-3.5 Performed By: #### C DP, PFA, CP, GLYHGB #### [facility] [address] [place] [address] Job Coach/Job Developer: Savage Jacob MD PT Coag (PPP) [Time] 16.8 s High 9.0-12.0 [facility] Comment on above: Performed By: #### C DP, PFA, CP, GLYHGB #### [employer] [address] [place], [place] [phone] Job Coach/Job Developer: Savage Jacob MD Protime-INRon 07-08-2019 INR Coag (PPP) [Relative time] 1.7 {INR} [place] Interpretation and review of laboratory results Abnormal [place] PT Coag (PPP) [Time] 16.8 s High [place] XR ABDOMEN FOR NG/OG/NE TUBE PLACEMENTon [...] Jesús Clemons MD 07/08/19 Final result Normal [place] XR CHEST PORTABLEon 07-08-19 20 XR [...] Loki العلي MD 07/08/19 Final result Normal [place] Anion Gap (Calc) POCon 07-07 Anion gap [Moles/Vol] 10 mmol/L 7 - 16 mmol/L [place] Arterial Blood Gas, POCon Graham Test NOT REPORTED [place] FIO2 45.0 [place] Mode NIV [place] Negative Base Excess, Art 2 [place] O2 Device/Flow/% NOT REPORTED [place] POC HCO3 23.6 mmol/L 21 - 28 mmol/L [place] POC O2 SAT 98 % 94 - 98 % [place] POC pCO2 46.1 [place] POC pCO2 Temp NOT REPORTED mm Hg [place] POC pH 7.318 Low [place] POC pH Temp NOT REPORTED [place] POC PO2 109.9 High [place] POC pO2 Temp NOT REPORTED mm Hg [place] Positive Base Excess, Art NOT REPORTED [place] Pt Temp NOT REPORTED [place] Sample Site Arterial Line [place] TCO2 (calc), Art 25 mmol/L 22 - 29 mmol/L [place] Graham Test NOT REPORTED [place] FIO2 40.0 [place] Interpretation and review of laboratory results Abnormal [place] Mode CPAP/PS [place] Negative Base Excess, Art 2 [place] O2 Device/Flow/% Adult Ventilator [place] POC HCO3 24.1 mmol/L 21 - 28 mmol/L [place] POC O2 SAT 96 % 94 - 98 % [place] POC pCO2 45.2 [place] POC pCO2 Temp NOT REPORTED mm Hg [place] POC pH 7.335 Low [place] POC pH Temp NOT REPORTED [place] POC PO2 87.5 [place] POC pO2 Temp NOT REPORTED mm Hg [place] Positive Base Excess, Art NOT REPORTED [place] Pt Temp NOT REPORTED [place] Sample Site Arterial Line [place] TCO2 (calc), Art 26 mmol/L 22 - 29 mmol/L [place] Graham Test NOT REPORTED [place] FIO2 35.0 [place] Mode SIMV(PRVC)+ PS [place] Negative Base Excess, Art 4 High [place] O2 Device/Flow/% Adult Ventilator [place] POC HCO3 21.8 mmol/L 21 - 28 mmol/L [place] POC O2 SAT 96 % 94 - 98 % [place] POC pCO2 39.4 [place] POC pCO2 Temp NOT REPORTED mm Hg [place] POC pH 7.351 [place] POC pH Temp NOT REPORTED [place] POC PO2 86.1 [place] POC pO2 Temp NOT REPORTED mm Hg [place] Positive Base Excess, Art NOT REPORTED [place] Pt Temp NOT REPORTED [place] Sample Site Arterial Line [place] TCO2 (calc), Art 23 mmol/L 22 - 29 mmol/L [place] Graham Test NOT APPLICABLE [place] FIO2 NOT REPORTED [place] Interpretation and review of laboratory results Abnormal [place] Mode NOT REPORTED [place] Negative Base Excess, Art 2 [place] O2 Device/Flow/% Adult Ventilator [place] POC HCO3 22.7 mmol/L 21 - 28 mmol/L [place] POC O2 SAT 98 % 94 - 98 % [place] POC pCO2 39.0 [place] POC pCO2 Temp NOT REPORTED mm Hg [place] POC pH 7.372 [place] POC pH Temp NOT REPORTED [place] POC PO2 118.8 High [place] POC pO2 Temp NOT REPORTED mm Hg [place] Positive Base Excess, Art NOT REPORTED [place] Pt Temp NOT REPORTED [place] Sample Site Arterial Line [place] TCO2 (calc), Art 24 mmol/L 22 - 29 mmol/L [place] Graham Test NOT APPLICABLE [place] FIO2 NOT REPORTED [place] Mode NOT REPORTED [place] Negative Base Excess, Art 3 High [place] O2 Device/Flow/% Adult Ventilator [place] POC HCO3 22.1 mmol/L 21 - 28 mmol/L [place] POC O2 SAT 95 % 94 - 98 % [place] POC pCO2 39.8 [place] POC pCO2 Temp NOT REPORTED mm Hg [place] POC pH 7.352 [place] POC pH Temp NOT REPORTED [place] POC PO2 80.9 Low [place] POC pO2 Temp NOT REPORTED mm Hg [place] Positive Base Excess, Art NOT REPORTED [place] Pt Temp NOT REPORTED [place] Sample Site Arterial Line [place] TCO2 (calc), Art 23 mmol/L 22 - 29 mmol/L [place] Basic Metab w/rfx MGon 07-07 (cont.) Normal [facility] Comment on above: Result Comment: Aver age GFR for 70 or more years old: 75 mL/min/1.73sq m Chronic Kidney Disease: <60 mL/min/1.73sq m Kidney failure: <15 mL/min/1.73sq m eGFR calculated using average adult body mass. Additional eGFR calculator available at: http://www.[employer]/multiple_crcl_2011.htm Performed By: #### C DP, PFA, CP, GLYHGB #### [facility] [address] [place] [phone] Job Coach/Job Developer: Savage Jacob MD Anion gap [Moles/Vol] 15 mmol/L Normal 9-17 [facility] Comment on above: Performed By: #### C DP, PFA, CP, GLYHGB #### [address] [address] Job Coach/Job Developer: Savage Jacob MD Calcium [Mass/Vol] 8.4 mg/dL Low 8.6-10.4 [facility] Comment on above: Performed By: #### C DP, PFA, CP, GLYHGB #### [facility] [address] [place] [phone] Job Coach/Job Developer: Savage Jacob MD Chloride [Moles/Vol] 105 mmol/L Normal 98-107 [facility] Comment on above: Performed By: #### C DP, PFA, CP, GLYHGB #### [facility] [address] [place] [phone] Job Coach/Job Developer: Savage Jacob MD CO2 [Moles/Vol] 21 mmol/L Normal 20-31 [facility] Comment on above: Performed By: #### C DP, PFA, CP, GLYHGB #### [facility] [address] [place] [phone] Job Coach/Job Developer: Savage Jacob MD Creatinine [Mass/Vol] 1.76 mg/dL High 0.50-0.90 [facility] Comment on above: Performed By: #### C DP, PFA, CP, GLYHGB #### [address] [address] Job Coach/Job Developer: Savage Jacob MD GFR, Amer 35 mL/min Low >60 [facility] Comment on above: Performed By: #### C DP, PFA, CP, GLYHGB #### [address] [address] Job Coach/Job Developer: Svaage Jacob MD GFR,non Amer 29 mL/min Low >60 [facility] Comment on above: Performed By: #### C DP, PFA, CP, GLYHGB #### [address] [address] Job Coach/Job Developer: Savage Jacob MD Glucose [Mass/Vol] 182 mg/dL High 70-99 [facility] Comment on above: Performed By: #### C DP, PFA, CP, GLYHGB #### [address] [address] Job Coach/Job Developer: Savage Jacob MD Potassium [Moles/Vol] 4.4 mmol/L Normal 3.7-5.3 [facility] Comment on above: Performed By: #### C DP, PFA, CP, GLYHGB #### [address] [address] Job Coach/Job Developer: Savage Jacob MD Sodium [Moles/Vol] 141 mmol/L Normal 135-144 [facility] Comment on above: Performed By: #### C DP, PFA, CP, GLYHGB #### [facility] [employer] [address] [place] [address] Job Coach/Job Developer: Savage Jacob MD Urea nitrogen [Mass/Vol] 54 mg/dL High 8-23 [facility] Comment on above: Performed By: #### C DP, PFA, CP, GLYHGB #### [facility] [address] [place] [address] Job Coach/Job Developer: Savage Jacob MD BUN/CRE Ratio NOT REPORTED Normal - [facility] Comment on above: Performed By: #### C DP, PFA, CP, GLYHGB #### [facility] [address] [place], [place] [phone] Job Coach/Job Developer: Savage Jacob MD Staging: NOT REPORTED Normal [facility] Comment on above: Performed By: #### C DP, PFA, CP, GLYHGB #### [facility] [address] [place], [place] [phone] Job Coach/Job Developer: Savage Jacob MD Basic Metabolic Panelon 06-23 Anion gap [Moles/Vol] 15 mmol/L 9 - 17 mmol/L [place] Bun/Cre Ratio NOT REPORTED [place] Calcium [Mass/Vol] 8.1 mg/dL Low 8.6 - 10. 4 mg/dL [place] Chloride [Moles/Vol] 104 mmol/L 98 - 10 7 mmol/L [place] CO2 [Moles/Vol] 19 mmol/L Low 20 - 31 mmol/L [place] Creatinine [Mass/Vol] 1.67 mg/dL High 0.5 - 0.9 mg/dL [place] GFR 37 mL/min Low >60 [place] GFR Comment [place] GFR Non- 30 mL/min Low >60 [place] GFR Staging NOT REPORTED [place] Glucose [Mass/Vol] 139 mg/dL High 70 - 99 mg/dL [place] Interpretation and review of laboratory results Abnormal [place] Potassium [Moles/Vol] 3.6 mmol/L Low 3.7 - 5.3 mmol/L [place] Sodium [Moles/Vol] 138 mmol/L 135 - 144 mmol/L [place] Urea nitrogen [Mass/Vol] 55 mg/dL High 8 - 23 mg/dL [place] Basic Metabolic Panel w/ Ref mira to MGon 07-07-2019 Anion gap [Moles/Vol] 15 mmol/L 9 - 17 mmol/L [place] Bun/Cre Ratio NOT REPORTED [place] Calcium [Mass/Vol] 8.4 mg/dL Low 8.6 - 10. 4 mg/dL [place] Chloride [Moles/Vol] 105 mmol/L 98 - 10 7 mmol/L [place] CO2 [Moles/Vol] 21 mmol/L 20 - 31 mmol/L [place] Creatinine [Mass/Vol] 1.76 mg/dL High 0.5 - 0.9 mg/dL [place] GFR 35 mL/min Low >60 [place] GFR Comment [place] GFR Non- 29 mL/min Low >60 [place] GFR Staging NOT REPORTED [place] Glucose [Mass/Vol] 182 mg/dL High 70 - 99 mg/dL [place] Interpretation and review of laboratory results Abnormal [place] Potassium [Moles/Vol] 4.4 mmol/L 3.7 - 5.3 mmol/L [place] Sodium [Moles/Vol] 141 mmol/L 135 - 144 mmol/L [place] Urea nitrogen [Mass/Vol] 54 mg/dL High 8 - 23 mg/dL [place] Basic Metabolic Profon 07-07 (cont.) Normal [facility] Comment on above: Result Comment: Aver age GFR for 70 or more years old: 75 mL/min/1.73sq m Chronic Kidney Disease: <60 mL/min/1.73sq m Kidney failure: <15 mL/min/1.73sq m eGFR calculated using average adult body mass. Additional eGFR calculator available at: http://www.MFG.com.[employer]/multiple_crcl_2011.htm Performed By: #### T YS #### [address] [address] Job Coach/Job Developer: Savage Jacob MD Anion gap [Moles/Vol] 15 mmol/L Normal 9-17 [facility] Comment on above: Performed By: #### T YS #### [address] [address] Job Coach/Job Developer: Savage Jacob MD Calcium [Mass/Vol] 8.1 mg/dL Low 8.6-10.4 [facility] Comment on above: Performed By: #### T YS #### [address] [address] Job Coach/Job Developer: Savage Jacob MD Chloride [Moles/Vol] 104 mmol/L Normal 98-107 [facility] Comment on above: Performed By: #### T YS #### [address] [address] Job Coach/Job Developer: Savage Jacob MD CO2 [Moles/Vol] 19 mmol/L Low 20-31 [facility] Comment on above: Performed By: #### T YS #### [address] [address] Job Coach/Job Developer: Savage Jacob MD Creatinine [Mass/Vol] 1.67 mg/dL High 0.50-0.90 [facility] Comment on above: Performed By: #### T YS #### [address] [address] Job Coach/Job Developer: Savage Jacob MD GFR, Amer 37 mL/min Low >60 [facility] Comment on above: Performed By: #### T YS #### [address] [address] Job Coach/Job Developer: Savage Jacob MD GFR,non Amer 30 mL/min Low >60 [facility] Comment on above: Performed By: #### T YS #### [facility] [address] [place] [address] Job Coach/Job Developer: Savage Jacob MD Glucose [Mass/Vol] 139 mg/dL High 70-99 [facility] Comment on above: Performed By: #### T YS #### [address] [address] Job Coach/Job Developer: Savage Jacob MD Potassium [Moles/Vol] 3.6 mmol/L Low 3.7-5.3 [facility] Comment on above: Performed By: #### T YS #### [facility] [address] [place] [address] Job Coach/Job Developer: Savage Jacob MD Sodium [Moles/Vol] 138 mmol/L Normal 135-144 [facility] Comment on above: Performed By: #### T YS #### [address] [address] Job Coach/Job Developer: Savage Jacob MD Urea nitrogen [Mass/Vol] 55 mg/dL High 8-23 [facility] Comment on above: Performed By: #### T YS #### [address] [address] Job Coach/Job Developer: Savage Jacob MD BUN/CRE Ratio NOT REPORTED Normal 9-20 [facility] Comment on above: Performed By: #### T YS #### [facility] [address] [place] [address] Job Coach/Job Developer: Savage Jacob MD Staging: NOT REPORTED Normal [facility] Comment on above: Performed By: #### T YS #### [facility] [address] [place] [address] Job Coach/Job Developer: Savage Jacob MD CALCIUM, IONIC (POC)on 07-07 POC Ionized Calcium 1.11 mmol/L Low 1.15 - 1 .33 mmol/L [place] POC Ionized Calcium 1.14 mmol/L Low 1.15 - 1 .33 mmol/L [place] CBCon 07-07-2019 NRBC Automated 1.0 per 100 WBC High 0.0 [facility] Comment on above: Performed By: #### T YS #### [address] [address] Job Coach/Job Developer: Savage Jacob MD Erythrocyte distribution width (RBC) [Ratio] 15.7 % High 11.8-14.4 [place] Comment on above: Performed By: #### T YS #### [address] [address] Job Coach/Job Developer: Savage Jacob MD Hematocrit (Bld) [Volume fraction] 27.7 % Low 36.3-47.1 [place] Comment on above: Performed By: #### T YS #### [address] [address] Job Coach/Job Developer: Savage Jacob MD Hemoglobin (Bld) [Mass/Vol] 8.9 g/dL Low 11.9-15.1 [place] Comment on above: Performed By: #### T YS #### [address] [address] Job Coach/Job Developer: Savage Jacob MD MCH (RBC) [Entitic mass] 28.8 pg Normal 25.2-33.5 [place] Comment on above: Performed By: #### T YS #### [address] [address] Job Coach/Job Developer: Savage Jacob MD MCHC (RBC) [Mass/Vol] 32.1 g/dL Normal 28.4-34.8 [place] Comment on above: Performed By: #### T YS #### [address] [id number] Job Coach/Job Developer: Savage Jacob MD MCV (RBC) [Entitic vol] 89.6 fL Normal 82.6-102.9 [place] Comment on above: Performed By: #### T YS #### [facility] [place] [address] Job Coach/Job Developer: Savage Jacob MD Platelet mean volume (Bld) [Entitic vol] 10.4 fL Normal 8.1-13.5 [place] Comment on above: Performed By: #### T YS #### [facility] [address] [place] [phone] Job Coach/Job Developer: Savage Jacob MD Platelets (Bld) [#/Vol] 135 10*3/uL Low 138-453 [place] Comment on above: Performed By: #### T YS #### [facility] [address] [place] [address] Job Coach/Job Developer: Savage Jacob MD RBC (Bld) [#/Vol] 3.09 10*6/uL Low 3.95-5.11 [place] Comment on above: Performed By: #### T YS #### [facility] [address] [place] [address] Job Coach/Job Developer: Savage Jacob MD WBC (Bld) [#/Vol] 15.2 10*3/uL High 3.5-11.3 [place] Comment on above: Performed By: #### T YS #### [facility] [address] [place] [address] Job Coach/Job Developer: Savage Jacob MD Interpretation and review of laboratory results Abnormal [place] WBC (Bld) [#/Vol] 1.0 10*3/uL High 0.0 per 10 0 WBC [place] CHLORIDE (POC)on 07-07-2019 POC Chloride 111 mmol/L High 98 - 107 mmol/L [place] Creatinine W/GFR Point of Ca reon 07-07-2019 GFR Comment 41 mL/min Low >60 [place] GFR Comment [place] GFR Non- 33 mL/min Low >60 [place] POC Creatinine 1.53 mg/dL High 0.51 - 1.19 mg/dL [place] EKG 12 Leadon 07-07-2019 Atrial Rate 150 BPM [facility], [place] Q-T Interval 298 ms [facility], [place] QRS Duration 88 ms [facility], [place] QTc Calculation (Bazett) 408 ms [facility], [place] R [place] 37 degrees [facility], [place] T [place] -126 degrees [facility], [place] Ventricular Rate 113 BPM [facility]- [place], [facility] [place], [place] [facility] [place], [place] Atrial Rate 61 BPM [facility], [place] P [place] 27 degrees [facility], [place] P-R Interval 160 ms [facility], [place] Q-T Interval 506 ms [facility], [place] QRS Duration 104 ms [place] QTc Calculation (Bazett) 509 ms [facility], [place] R [place] 29 degrees [facility], [place] T [place] -44 degrees [facility], [place] Ventricular Rate 61 BPM [facility], [place] [facility] [facility] [place] Echocardiogram Limited 2D Ad ulton 07-07-2019 [facility], [facility], [place] Hemoglobin and hematocrit, b loodon 07-07-2019 POC Hematocrit 23 % Low 36 - 46 % [place] POC Hemoglobin 8.0 g/dL Low 12 - 16 g/dL [facility]- [place], [place] Lactic Acid, POCon 0 POC Lactic Acid 0.51 mmol/L Low 0.56 - 1.39 mmol/L [place] Magnesiumon 07-07-2019 Magnesium [Mass/Vol] 2.3 mg/dL Normal 1.6-2.6 [facility] Comment on above: Performed By: #### T YS #### [facility] [place] [address] Job Coach/Job Developer: Savage Jacob MD Magnesium [Mass/Vol] 2.3 mg/dL 1.6 - 2 .6 mg/dL [place] Otheron 07-07-2019 Interpretation and review of laboratory results Abnormal [place] Interpretation and review of laboratory results Abnormal [place] Interpretation and review of laboratory results Abnormal [place] POC Glucose Fingerstickon Interpretation and review of laboratory results Abnormal [place] POC Glucose 166 mg/dL High 65 - 105 mg/dL [place] Interpretation and review of laboratory results Abnormal [place] POC Glucose 152 mg/dL High 65 - 105 mg/dL [place] Interpretation and review of laboratory results Abnormal [place] POC Glucose 149 mg/dL High 65 - 105 mg/dL [place] Interpretation and review of laboratory results Abnormal [place] POC Glucose 136 mg/dL High 65 - 105 mg/dL [place] POCT Glucoseon 07-07-2019 POC Glucose 169 mg/dL High 74 - 100 mg/dL [place] POC Glucose 165 mg/dL High 74 - 100 mg/dL [place] POC Glucose 143 mg/dL High 74 - 100 mg/dL [place] POTASSIUM (POC)on 07-07-2019 POC Potassium 3.5 mmol/L 3.5 - 4.5 mmol/L [place] POC Potassium 3.7 mmol/L 3.5 - 4.5 mmol/L [place] POC Potassium 3.3 mmol/L Low 3.5 - 4.5 mmol/L [place] PTon 07-07-2019 INR Coag (PPP) [Relative time] 1.2 {INR} Normal [facility] Comment on above: Result Comment: Therapeutic Range: Moderate Anticoagulant Intensity: INR = 2.0-3.0 High Anticoagulant Intensity: INR = 2.5-3.5 Performed By: #### T YS #### [facility] [place] [address] Job Coach/Job Developer: Savage Jacob MD PT Coag (PPP) [Time] 12.8 s High 9.0-12.0 [facility] Comment on above: Performed By: #### T YS #### [facility] [address] [place] [address] [phone] Job Coach/Job Developer: Savage Jacob MD Protime-INRon 07-07-2019 INR Coag (PPP) [Relative time] 1.2 {INR} [place] Interpretation and review of laboratory results Abnormal [place] PT Coag (PPP) [Time] 12.8 s [place] SODIUM (POC)on 07-07-2019 POC Sodium 145 mmol/L 138 - 146 mmol/L [place] Vancomycin, Randomon 020 Vancomycin Random Date last dose NOT REPORTED [place] Vancomycin Random Dose amount NOT REPORTED [place] Vancomycin Random Time last dose NOT REPORTED [place] Vancomycin Rm 17.2 ug/mL [place] Vancomycin,Randomon 07-07-19 20 Vancomycin 17.2 ug/mL Normal [facility] Comment on above: Result Comment: High er trough serum vancomycin concentrations of 15-20 ug/mL are recommended for complicated infections such as bacteremia, endocarditis, osteomyelitis, meningitis, and hospital acquired pneumonia. Performed By: #### C DP, PFA, CP, GLYHGB #### [facility] [address] [place] [address] [phone] Job Coach/Job Developer: Savage Jacob MD Date last dose, NOT REPORTED Normal [facility] Comment on above: Performed By: #### C DP, PFA, CP, GLYHGB #### [facility] [address] [place] [address] [phone] Job Coach/Job Developer: Savage Jacob MD Dose amount, NOT REPORTED Normal [facility] Comment on above: Performed By: #### C DP, PFA, CP, GLYHGB #### [facility] [address] [place] [phone] Job Coach/Job Developer: Savage Jacob MD Time last dose, NOT REPORTED Normal [facility] Comment on above: Performed By: #### C DP, PFA, CP, GLYHGB #### [facility] [address] [place] [address] Job Coach/Job Developer: Savage Jacob MD XR CHEST PORTABLEon 07-07-19 20 XR CHEST PORTABLE EXAMINATION: ONE XRAY [...] Jesús Clemons MD 07/07/19 Final result Normal [place] TETO SCREEN WITH REFLEXon Nuclear Ab IF (S) [Titer] Negative NEGATIVE [place] TETO Screenon 07-06-2019 TETO Screen Negative Normal NEG [facility] Comment on above: Result Comment: This test was run on the [employer] TETO test system. The system provides ten test results (HEp-2NA, dsDNA, SSA, SSB, Sm, BIODIESEL ENGINE SPECIALIST, Scl-70, Alberta-1, Centromere and Histone analytes) from a single patient sample. A negative TETO screen indicates that the specimen was negative for all ten markers. Performed By: #### C 3, C4, IFX, ANASCX, PE ####[facility] [address] [place] [address] Lab Director: Savage Jacob MD Arterial Blood Gas, POCon Graham Test NOT REPORTED [place] FIO2 50.0 [place] Mode CPAP/PS [place] Negative Base Excess, Art 2 [place] O2 Device/Flow/% Adult Ventilator [place] POC HCO3 24.6 mmol/L 21 - 28 mmol/L [place] POC O2 SAT 97 % 94 - 98 % [place] POC pCO2 49.2 High [place], [place] POC pCO2 Temp NOT REPORTED mm Hg [place] POC pH 7.306 Low [place] POC pH Temp NOT REPORTED [place] POC PO2 96.0 [place] POC pO2 Temp NOT REPORTED mm Hg [place] Positive Base Excess, Art NOT REPORTED [place] Pt Temp NOT REPORTED [place] Sample Site Arterial Line [place], [place] TCO2 (calc), Art 26 mmol/L 22 - 29 mmol/L [place] Graham Test NOT REPORTED [place] FIO2 60.0 [place] Mode SIMV(PRVC)+ PS [place] Negative Base Excess, Art 3 High [place] O2 Device/Flow/% Adult Ventilator [place] POC HCO3 22.0 mmol/L 21 - 28 mmol/L [place] POC O2 SAT 99 % High 94 - 98 % [place] POC pCO2 37.0 [place], [place] POC pCO2 Temp NOT REPORTED mm Hg [place] POC pH 7.383 [place] POC pH Temp NOT REPORTED [place] POC PO2 123.9 High [place] POC pO2 Temp NOT REPORTED mm Hg [place] Positive Base Excess, Art NOT REPORTED [place] Pt Temp NOT REPORTED [place] Sample Site Arterial Line [place] TCO2 (calc), Art 23 mmol/L 22 - 29 mmol/L [place] Graham Test NOT REPORTED [place] FIO2 60.0 [place] Interpretation and review of laboratory results Abnormal [place] Mode SIMV(PRVC)+ PS [place] Negative Base Excess, Art 4 High [place] O2 Device/Flow/% Adult Ventilator [place] POC HCO3 22.2 mmol/L 21 - 28 mmol/L [place] POC O2 SAT 97 % 94 - 98 % [place] POC pCO2 47.9 [place] POC pCO2 Temp NOT REPORTED mm Hg [place] POC pH 7.274 Low [place] POC pH Temp NOT REPORTED [place] POC PO2 100.1 [place] POC pO2 Temp NOT REPORTED mm Hg [place] Positive Base Excess, Art NOT REPORTED [place] Pt Temp NOT REPORTED [place] Sample Site Arterial Line [place] TCO2 (calc), Art 24 mmol/L 22 - 29 mmol/L [place] Graham Test NOT REPORTED [place] FIO2 60.0 [place] Interpretation and review of laboratory results Abnormal [place] Mode SIMV(PRVC)+ PS [place] Negative Base Excess, Art 2 [place] O2 Device/Flow/% Adult Ventilator [place] POC HCO3 23.9 mmol/L 21 - 28 mmol/L [place] POC O2 SAT 97 % 94 - 98 % [place] POC pCO2 45.8 [place] POC pCO2 Temp NOT REPORTED mm Hg [place] POC pH 7.325 Low [place] POC pH Temp NOT REPORTED [place] POC PO2 103.5 [place] POC pO2 Temp NOT REPORTED mm Hg [place] Positive Base Excess, Art NOT REPORTED [place] Pt Temp NOT REPORTED [place] Sample Site Arterial Line [place] TCO2 (calc), Art 25 mmol/L 22 - 29 mmol/L [place] Graham Test NOT REPORTED [place] FIO2 50.0 [place] Mode SIMV(PRVC)+ PS [place] Negative Base Excess, Art 7 High [place] O2 Device/Flow/% Adult Ventilator [place] POC HCO3 19.7 mmol/L Low 21 - 28 mmol/L [place] POC O2 SAT 93 % Low 94 - 98 % [place] POC pCO2 43.7 [place] POC pCO2 Temp NOT REPORTED mm Hg [place] POC pH 7.261 [place] POC pH Temp NOT REPORTED [place] PO2 77.6 [place] pO2 Temp NOT REPORTED mm Hg [place] Positive Base Excess, Art NOT REPORTED [place] Pt Temp NOT REPORTED [place] Sample Site Arterial Line [place] TCO2 (calc), Art 21 mmol/L Low 22 - 29 mmol/L [place] Graham Test NOT APPLICABLE [place] FIO2 50.0 [place] Interpretation and review of laboratory results Abnormal [place] Mode CPAP/PS [place] Negative Base Excess, Art 6 High [place] O2 Device/Flow/% Adult Ventilator [place] POC HCO3 20.4 mmol/L Low 21 - 28 mmol/L [place] P[place] O2 SAT 97 % 94 - 98 % [place] P[place] pCO2 40.7 [place] pCO2 Temp NOT REPORTED mm Hg [place] POC pH 7.307 Low [place] POC pH Temp NOT REPORTED [place] P[place] PO2 96.7 [place] P[place] pO2 Temp NOT REPORTED mm Hg [place], [place] Positive Base Excess, Art NOT REPORTED [place] Pt Temp NOT REPORTED [place] Sample Site Arterial Line [place] TCO2 (calc), Art 22 mmol/L 22 - 29 mmol/L [place] Basic Metabolic Panelon 06-23 Anion gap [Moles/Vol] 15 mmol/L 9 - 17 mmol/L [place] Bun/Cre Ratio NOT REPORTED [place] Calcium [Mass/Vol] 8.2 mg/dL Low 8.6 - 10. 4 mg/dL [place] Chloride [Moles/Vol] 108 mmol/L High 98 - 10 7 mmol/L [place] CO2 [Moles/Vol] 21 mmol/L 20 - 31 mmol/L [place] Creatinine [Mass/Vol] 1.77 mg/dL High 0.5 - 0.9 mg/dL [place] GFR 34 mL/min Low >60 [place] GFR Comment [place] GFR Non- 28 mL/min Low >60 [place] GFR Staging NOT REPORTED [place] Glucose [Mass/Vol] 183 mg/dL High 70 - 99 mg/dL [place] Interpretation and review of laboratory results Abnormal [place] Potassium [Moles/Vol] 4.0 mmol/L 3.7 - 5.3 mmol/L [place] Sodium [Moles/Vol] 144 mmol/L 135 - 144 mmol/L [place] Urea nitrogen [Mass/Vol] 49 mg/dL High 8 - 23 mg/dL [place] Bun/Cre Ratio NOT REPORTED [place] GFR 35 mL/min Low >60 [place] GFR Comment [place] GFR Non- 29 mL/min Low >60 [place] GFR Staging NOT REPORTED [place] Interpretation and review of laboratory results Abnormal [place] Basic Metabolic Profon 07-06 (cont.) Normal [facility] Comment on above: Result Comment: Aver age GFR for 70 or more years old: 75 mL/min/1.73sq m Chronic Kidney Disease: <60 mL/min/1.73sq m Kidney failure: <15 mL/min/1.73sq m eGFR calculated using average adult body mass. Additional eGFR calculator available at: http://www.Cognea/multiple_crcl_2012.htm Performed By: #### T YS #### [facility] [address] [place] [address] Job Coach/Job Developer: Savage Jacob MD Performed By: #### C BC, PT, BMP, MG, VNCR, LIVP ####[facility] [address] [place] [phone])[phone] Director: Savage Jacob MD Anion gap [Moles/Vol] 15 mmol/L Normal 9-17 [facility] Comment on above: Performed By: #### T YS #### [facility] [employer] [address] [place] [address] Job Coach/Job Developer: Savage Jacob MD Calcium [Mass/Vol] 8.2 mg/dL Low 8.6-10.4 [facility] Comment on above: Performed By: #### T YS #### [facility] [employer] [address] [place] [address] Job Coach/Job Developer: Savage Jacob MD Chloride [Moles/Vol] 108 mmol/L High 98-107 [facility] Comment on above: Performed By: #### T YS #### [facility] [address] [place] [address] Job Coach/Job Developer: Savage Jacob MD CO2 [Moles/Vol] 21 mmol/L Normal 20-31 [facility] Comment on above: Performed By: #### T YS #### [facility] [employer] [address] [place] [address] Job Coach/Job Developer: Savage Jacob MD Creatinine [Mass/Vol] 1.77 mg/dL High 0.50-0.90 [facility] Comment on above: Performed By: #### T YS #### [facility] [address] [place] [address] Job Coach/Job Developer: Savage Jacob MD GFR, Amer 34 mL/min Low >60 [facility] Comment on above: Performed By: #### T YS #### [facility] [address] [place] [address] Job Coach/Job Developer: Savage Jacob MD GFR,non Amer 28 mL/min Low >60 [facility] Comment on above: Performed By: #### T YS #### [address] [address] Job Coach/Job Developer: Savage Jacob MD Glucose [Mass/Vol] 183 mg/dL High 70-99 [facility] Comment on above: Performed By: #### T YS #### [address] [address] Job Coach/Job Developer: Savage Jacob MD Potassium [Moles/Vol] 4.0 mmol/L Normal 3.7-5.3 [facility] Comment on above: Performed By: #### T YS #### [address] [address] Job Coach/Job Developer: Savage Jacob MD Sodium [Moles/Vol] 144 mmol/L Normal 135-144 [facility] Comment on above: Performed By: #### T YS #### [facility] [employer] [address] [place] [address] Job Coach/Job Developer: Savage Jacob MD Urea nitrogen [Mass/Vol] 49 mg/dL High 8-23 [facility] Comment on above: Performed By: #### T YS #### [address] [address] Job Coach/Job Developer: Savage Jacob MD BUN/CRE Ratio NOT REPORTED Normal 9-20 [facility] Comment on above: Performed By: #### T YS #### [facility] [address] [place] [address] Job Coach/Job Developer: Savage Jacob MD Staging: NOT REPORTED Normal [facility] Comment on above: Performed By: #### T YS #### [facility] [address] [place] [address] Job Coach/Job Developer: Savage Jacob MD GFR, Amer 35 mL/min Low >60 [facility] Comment on above: Performed By: #### C BC, PT, BMP, MG, VNCR, LIVP ####[facility] [address] [place] [address] Lab Director: Savage Jacob MD GFR,non Amer 29 mL/min Low >60 [facility] Comment on above: Performed By: #### C BC, PT, BMP, MG, VNCR, LIVP ####[facility] [address] [place] [address] Lab Director: Savage Jacob MD BUN/CRE Ratio NOT REPORTED Normal -20 [facility] Comment on above: Performed By: #### C BC, PT, BMP, MG, VNCR, LIVP ####[facility] [address] [place] [address] Lab Director: Savage Jacob MD Staging: NOT REPORTED Normal [facility] Comment on above: Performed By: #### C BC, PT, BMP, MG, VNCR, LIVP ####[facility] [address] [place] [address] Lab Director: Savage Jacob MD Anion gap [Moles/Vol] 17 mmol/L Normal 9-17 [facility] [place] Comment on above: Performed By: #### C BC, PT, BMP, MG, VNCR, LIVP ####[facility] [address] [place], [place] [phone] Lab Director: Savage Jacob MD Calcium [Mass/Vol] 8.3 mg/dL Low 8.6-10.4 [place] Comment on above: Performed By: #### C BC, PT, BMP, MG, VNCR, LIVP ####[facility] [address] [place] [address] Lab Director: Savage Jacob MD Chloride [Moles/Vol] 109 mmol/L High 98-107 [place] Comment on above: Performed By: #### C BC, PT, BMP, MG, VNCR, LIVP ####[facility] [address] [place] [address] Lab Director: Savage Jacob MD CO2 [Moles/Vol] 18 mmol/L Low 20-31 [place] Comment on above: Performed By: #### C BC, PT, BMP, MG, VNCR, LIVP ####[facility] [address] [place] [address] Lab Director: Savage Jacob MD Creatinine [Mass/Vol] 1.76 mg/dL High 0.50-0.90 [place] Comment on above: Performed By: #### C BC, PT, BMP, MG, VNCR, LIVP ####[facility] [address] [place] [address] Lab Director: Savage Jacob MD Glucose [Mass/Vol] 212 mg/dL High 70-99 [place] Comment on above: Performed By: #### C BC, PT, BMP, MG, VNCR, LIVP ####[facility] [address] [place] [address] Lab Director: Savage Jacob MD Potassium [Moles/Vol] 4.1 mmol/L Normal 3.7-5.3 [place] Comment on above: Performed By: #### C BC, PT, BMP, MG, VNCR, LIVP ####[facility] [address] [place] [address] Lab Director: Savage Jacob MD Sodium [Moles/Vol] 144 mmol/L Normal 135-144 [place] Comment on above: Performed By: #### C BC, PT, BMP, MG, VNCR, LIVP ####[facility] [address] [place] [address] Lab Director: Savage Jacob MD Urea nitrogen [Mass/Vol] 47 mg/dL High 8-23 [place] Comment on above: Performed By: #### C BC, PT, BMP, MG, VNCR, LIVP ####[facility] [address] [place] [address] Lab Director: Savage Jacob MD CBCon 07-06-2019 Erythrocyte distribution width (RBC) [Ratio] 15.8 % High 11.8-14.4 [facility] Comment on above: Performed By: #### C BC, PT, BMP, MG, VNCR, LIVP ####[facility] [address] [place] [address] Lab Director: Savage Jacob MD Hematocrit (Bld) [Volume fraction] 26.6 % Low 36.3-47.1 [facility] Comment on above: Performed By: #### C BC, PT, BMP, MG, VNCR, LIVP ####[facility] [address] [place] [address] Lab Director: Savage Jacob MD Hemoglobin (Bld) [Mass/Vol] 8.4 g/dL Low 11.9-15.1 [facility] Comment on above: Performed By: #### C BC, PT, BMP, MG, VNCR, LIVP ####[facility] [address] [place] [address] Lab Director: Savage Jacob MD MCH (RBC) [Entitic mass] 28.1 pg Normal 25.2-33.5 [facility] Comment on above: Performed By: #### C BC, PT, BMP, MG, VNCR, LIVP ####[facility] [address] [place] [address] Lab Director: Savage Jacob MD MCHC (RBC) [Mass/Vol] 31.6 g/dL Normal 28.4-34.8 [facility] Comment on above: Performed By: #### C BC, PT, BMP, MG, VNCR, LIVP ####[facility] [address] [place], [place] [phone] Director: Savage Jacob MD MCV (RBC) [Entitic vol] 89.0 fL Normal 82.6-102.9 [facility] Comment on above: Performed By: #### C BC, PT, BMP, MG, VNCR, LIVP ####[address] [phone] Director: Savage Jacob MD NRBC Automated 0.2 per 100 WBC High 0.0 [facility] Comment on above: Performed By: #### C BC, PT, BMP, MG, VNCR, LIVP ####[address] [phone] Director: Savage Jacob MD Platelet mean volume (Bld) [Entitic vol] 10.5 fL Normal 8.1-13.5 [facility] Comment on above: Performed By: #### C BC, PT, BMP, MG, VNCR, LIVP ####[facility] [address] [place] [address] [phone] Director: Savage Jacob MD Platelets (Bld) [#/Vol] 96 10*3/uL Low 138-453 [facility] Comment on above: Performed By: #### C BC, PT, BMP, MG, VNCR, LIVP ####[address] [phone] Lab Director: Savage Jacob MD RBC (Bld) [#/Vol] 2.99 10*6/uL Low 3.95-5.11 [facility] Comment on above: Performed By: #### C BC, PT, BMP, MG, VNCR, LIVP ####[facility] [address] [place], [place] [phone] lab Director: Savage Jacob MD WBC (Bld) [#/Vol] 11.6 10*3/uL High 3.5-11.3 [facility] Comment on above: Performed By: #### C BC, PT, BMP, MG, VNCR, LIVP ####[facility] [address] [place] [phone] lab Director: Savage Jacob MD Erythrocyte distribution width (RBC) [Ratio] 15.8 % High 11.8 - 14.4 % [place] Hematocrit (Bld) [Volume fraction] 26.6 % Low 36.3 - 47.1 % [place] Hemoglobin (Bld) [Mass/Vol] 8.4 g/dL Low 11.9 - 15.1 g/dL [place] Interpretation and review of laboratory results Abnormal [place] MCH (RBC) [Entitic mass] 28.1 pg 25.2 - 33.5 pg [place] MCHC (RBC) [Mass/Vol] 31.6 g/dL 28.4 - 34.8 g/dL [place] MCV (RBC) [Entitic vol] 89.0 fL 82.6 - 102.9 fL [place] Platelet mean volume (Bld) [Entitic vol] 10.5 fL 8.1 - 13.5 fL [place] Platelets (Bld) [#/Vol] 96 10*3/uL [place] RBC (Bld) [#/Vol] 2.99 10*6/uL Low 3.95 - 5.1 1 m/uL [place] WBC (Bld) [#/Vol] 11.6 10*3/uL [place] WBC (Bld) [#/Vol] 0.2 10*3/uL High 0.0 per 10 0 WBC [facility], [place] CT HEAD WO CONTRASTon 2019 CT HEAD [...] Aliyah Das MD 07/06/19 Final result Normal [facility], [place] [facility] [facility], [place] EKG 12 Leadon 07-06-2019 Atrial Rate 90 BPM [facility], [place] Atrial Rate 58 BPM [facility] P [place] 20 degrees [facility], [place] P-R Interval 150 ms [facility], [place] Q-T Interval 530 ms [facility], [place] Q-T Interval 414 ms [facility] QRS Duration 102 ms [facility] QRS Duration 108 ms [facility], [place] QTc Calculation (Bazett) 528 ms [facility], [place] QTc Calculation (Bazett) 520 ms [facility], [place] R [place] 49 degrees [facility], [place] R [place] 25 degrees [facility], [place] T [place] -90 degrees [facility], [place] Ventricular Rate 98 BPM [facility] [place], [place] Ventricular Rate 58 BPM [facility] [place] Atrial Rate 71 BPM [facility], [place] P [place] 27 degrees [facility], [place] P-R Interval 156 ms [facility], [place] Q-T Interval 464 ms [facility], [place] QRS Duration 90 ms [place] QTc Calculation (Bazett) 504 ms [facility], [place] R [place] 23 degrees [facility], [place] Ventricular Rate 71 BPM [place] Electrophoresis Protein, Ser um without Reflex to Immunofixationon 07-06-2019 Albumin % 76 % High 45 - 65 % [place] Albumin [Mass/Vol] 3.6 g/dL 3.2 - 5.2 g/dL [place] Alpha 1 % 4 % 3 - 6 % [place] Alpha 2 % 8 % 6 - 13 % [place] Ascfy-0-Ysieqxpe 0.2 g/dL 0.1 - 0.4 g/dL [place] Ucnlx-3-Hoamfteu 0.4 g/dL Low 0.5 - 0.9 g/dL [place] Beta Globulin 0.3 g/dL Low 0.5 - 1.1 g/dL [place] Beta Percent 6 % Low 11 - 19 % [place] Gamma Globulin 0.3 g/dL Low 0.5 - 1.5 g/dL [place] Gamma Globulin % 6 % Low 9 - 20 % [place] Interpretation and review of laboratory results Abnormal [place] Pathologist Cyto stain Nom (Cvx/Vag) [ID] ELECTRONICALLY SIGNED. LOKI FRANCISCO M.D. [place] Protein [Mass/Vol] 4.7 g/dL Low 6.4 - 8.3 g/dL [place] Protein Electrophoresis, Serum DECREASED ALPHA 2 GLOBULIN. MAY BE OBSERVED IN A VARIETY OF CONDITIONS, e.g. HEPATIC DISEASE, ANEMIAS, AND HEMOLYSIS. [place] Total Prot. Sum 4.8 g/dL Low 6.3 - 8.2 g/dL [place] Total Prot. Sum,% 100 % 98 - 102 % [place] Hepatic Function Panelon Albumin [Mass/Vol] 3.4 g/dL Low 3.5 - 5.2 g/dL [place] Albumin/Globulin [Mass ratio] 1.9 {ratio} [place] ALP [Catalytic activity/Vol] 37 U/L 35 - 104 U/L [place] ALT [Catalytic activity/Vol] 9 U/L 5 - 33 U/L [place] AST [Catalytic activity/Vol] 38 U/L High <32 [place] Bilirubin Ql (U) 0.30 mg/dL 0.3 - 1.2 mg/dL [place] Bilirubin, Indirect 0.19 mg/dL 0 - 1 mg/dL [place] Bilirubin.direct [Mass/Vol] 0.11 mg/dL <0.31 [place] Globulin NOT REPORTED 1.5 - 3.8 g/dL [place] Interpretation and review of laboratory results Abnormal [place] Protein [Mass/Vol] 5.2 g/dL Low 6.4 - 8.3 g/dL [place] Immunofixation serum profile on 07-06-2019 Pathologist Cyto stain Nom (Cvx/Vag) [ID] ELECTRONICALLY SIGNED. LOKI FRANCISCO M.D. [place] Serum IFX Interp IMMUNOFIXATION IS NEGATIVE FOR MONOCLONAL IMMUNOGLOBULIN. [place] Immunofixation,Bloodon 07-06 IFX - Interpret. IMMUNOFIXATION IS NEGATIVE FOR MONOCLONAL IMMUNOGLOBULIN. Normal [facility] Comment on above: Performed By: #### C 3, C4, IFX, ANASCX, PE ####[address] [address] Lab Director: Savage Jacob MD Pathologist Review: ELECTRONICALLY SIGNED. LOKI FRANCISCO M.D. Normal [facility] Comment on above: Performed By: #### C 3, C4, IFX, ANASCX, PE ####[address] [address] Lab Director: Savage Jacob MD Liver Profileon 07-06-2019 Albumin [Mass/Vol] 3.4 g/dL Low 3.5-5.2 [facility] Comment on above: Performed By: #### T YS #### [address] [address] Job Coach/Job Developer: Savage Jacob MD Albumin/Globulin [Mass ratio] 1.9 {ratio} Normal 1.0-2.5 [facility] Comment on above: Performed By: #### T YS #### [address] [address] Job Coach/Job Developer: Savage Jacob MD Alkaline Phos 37 U/L Normal 35-104 [facility] Comment on above: Performed By: #### T YS #### [address] [address] Job Coach/Job Developer: Savage Jacob MD ALT [Catalytic activity/Vol] 9 U/L Normal 5-33 [facility] Comment on above: Performed By: #### T YS #### [address] [address] Job Coach/Job Developer: Savage Jacob MD AST [Catalytic activity/Vol] 38 U/L High <32 [facility] Comment on above: Performed By: #### T YS #### [address] [address] Job Coach/Job Developer: Savage Jacob MD Bilirubin Ql (U) 0.30 mg/dL Normal 0.3-1.2 [facility] Comment on above: Performed By: #### T YS #### [facility] [employer] [facility] [place] [address] Job Coach/Job Developer: Savage Jacob MD Bilirubin, Indirect 0.19 mg/dL Normal 0.00-1.00 [facility] Comment on above: Performed By: #### T YS #### [facility] [employer] [address] [place] [address] Job Coach/Job Developer: Savage Jacob MD Bilirubin.direct [Mass/Vol] 0.11 mg/dL Normal <0.31 [facility] Comment on above: Performed By: #### T YS #### [facility] [employer] [address] [place] [address] Job Coach/Job Developer: Savage Jacob MD Protein [Mass/Vol] 5.2 g/dL Low 6.4-8.3 [facility] Comment on above: Performed By: #### T YS #### [facility] [employer] [address] [place] [address] Job Coach/Job Developer: Savage Jacob MD Globulin (S) [Mass/Vol] NOT REPORTED Normal 1.5-3.8 [facility] Comment on above: Performed By: #### T YS #### [facility] [employer] [address] [place] [address] Job Coach/Job Developer: Savage Jacob MD Magnesiumon 07-06-2019 Magnesium [Mass/Vol] 2.2 mg/dL Normal 1.6-2.6 [place] Comment on above: Performed By: #### T YS #### [facility] [employer] [address] [place] [address] Job Coach/Job Developer: Savage Jacob MD Otheron 07-06-2019 Interpretation and review of laboratory results Abnormal [facility], [place] T [place] -36 degrees [facility], [facility], [facility], [place] Interpretation and review of laboratory results Abnormal [place] Interpretation and review of laboratory results Abnormal [place] POC Glucose Fingerstickon Interpretation and review of laboratory results Abnormal [place] POC Glucose 136 mg/dL High 65 - 105 mg/dL [place] POC Glucose 83 mg/dL 65 - 105 mg/dL [place] POC Glucose 65 mg/dL 65 - 105 mg/dL [place] POC Glucose 84 mg/dL 65 - 105 mg/dL [place] POC Glucose 74 mg/dL 65 - 105 mg/dL [place] POCT Glucoseon 07-06-2019 POC Glucose 178 mg/dL High 74 - 100 mg/dL [place] POC Glucose 214 mg/dL High 74 - 100 mg/dL [place] POC Glucose 228 mg/dL High 74 - 100 mg/dL [place] PROTEIN ELECTROPHORESIS, URI NEon 07-06-2019 P E Interpretation, U URINE PROTEIN CONCENTRATION IS ELEVATED. PROTEIN ELECTROPHORESIS DEMONSTRATES INCREASED GLOMERULAR PERMEABILITY. A DECREASE IN TUBULAR FUNCTION CANNOT BE RULED OUT. [place] Pathologist Cyto stain Nom (Cvx/Vag) [ID] ELECTRONICALLY SIGNED. LOKI FRANCISCO M.D. [place] Specimen type Nom (Spec) .URINE [place] Urine Total Protein 37 mg/dL [place] PTon 07-06-2019 INR Coag (PPP) [Relative time] 1.2 {INR} Normal [facility] Comment on above: Result Comment: Therapeutic Range: Moderate Anticoagulant Intensity: INR = 2.0-3.0 High Anticoagulant Intensity: INR = 2.5-3.5 Performed By: #### C BC, PT, BMP, MG, VNCR, LIVP ####[place] [id number] [place] [address] lab Director: Savage Jacob MD PT Coag (PPP) [Time] 12.1 s High 9.0-12.0 [facility] Comment on above: Performed By: #### C BC, PT, BMP, MG, VNCR, LIVP ####[facility] [address] [place] [address] Lab Director: Savage Jacob MD Prot. Electroph, Blon 2019 Pathologist Review: ELECTRONICALLY SIGNED. LOKI FRANCISCO M.D. [facility] Comment on above: Performed By: #### C 3, C4, IFX, ANASCX, PE ####[facility] [address] [place], [place] [phone] Director: Savage Jacob MD Prot. Elect-Interp DECREASED ALPHA 2 GLOBULIN. MAY BE OBSERVED IN A VARIETY OF CONDITIONS, e.g. Normal [facility] Comment on above: Result Comment: HEPA TIC [...] #### C 3, C4, IFX, ANASCX, PE ####[facility] [address] [place] [address] [phone] Director: Savage Jacob MD Albumin [Mass/Vol] 3.6 g/dL Normal 3.2-5.2 [facility] Comment on above: Performed By: #### C 3, C4, IFX, ANASCX, PE ####[facility] [address] [place], [place] [phone] Director: Savage Jacob MD Albumin, % 76 % High 45-65 [facility] Comment on above: Performed By: #### C 3, C4, IFX, ANASCX, PE ####[facility] [address]rf[address] [place] [address] Lab Director: Savage Jacob MD Xbylh-9-lwvtnqxaj 0.2 g/dL Normal 0.1-0.4 [facility] Comment on above: Performed By: #### C 3, C4, IFX, ANASCX, PE ####[facility] [address] [place], [place] [phone] Director: Savage Jacob MD Lgecl-8-tzdujkdrn,% 4 % Normal 3-6 [facility] Comment on above: Performed By: #### C 3, C4, IFX, ANASCX, PE ####[facility] [address] [place], [place] [phone] Director: Savage Jacob MD Vcrtl-2-uviwdrhjj 0.4 g/dL Low 0.5-0.9 [facility] Comment on above: Performed By: #### C 3, C4, IFX, ANASCX, PE ####[facility] [address] [place] [address] [phone] Director: Savage Jacob MD Eudec-2-tjbvkllpz,% 8 % Normal 6-13 [facility] Comment on above: Performed By: #### C 3, C4, IFX, ANASCX, PE ####[facility] [address] [place], [place] [phone] Director: Savage Jacob MD Beta-globulins 0.3 g/dL Low 0.5-1.1 [facility] Comment on above: Performed By: #### C 3, C4, IFX, ANASCX, PE ####[facility] [address] [place], [place] [phone] Director: Savage Jacob MD Beta-globulins,% 6 % Low 11-19 [facility] Comment on above: Performed By: #### C 3, C4, IFX, ANASCX, PE ####[facility] [address] [place], [place] [phone] Director: Savage Jacob MD Gamma-globulins 0.3 g/dL Low 0.5-1.5 [facility] Comment on above: Performed By: #### C 3, C4, IFX, ANASCX, PE ####[facility] [address] [place], [place] [phone] Director: Savage Jacob MD Gamma-globulins,% 6 % Low 9-20 [facility] Comment on above: Performed By: #### C 3, C4, IFX, ANASCX, PE ####[facility] [address] [place], [place] [phone] Director: Savage Jacob MD Total Prot. Sum 4.8 g/dL Low 6.3-8.2 [facility] Comment on above: Performed By: #### C 3, C4, IFX, ANASCX, PE ####[facility] Xxqsxxwbhoaa[address]2 [place], [place] [phone] Director: Savage Jacob MD Total Prot. Sum,% 100 % Normal 98-102 [facility] Comment on above: Performed By: #### C 3, C4, IFX, ANASCX, PE ####[facility] [address] [place], [place] [phone] Director: Savage Jacob MD Prot. Electroph, Uron 2019 Ur.-Prot.Elect-Inter URINE PROTEIN CONCENTRATION IS ELEVATED. PROTEIN ELECTROPHORESIS DEMONSTRATES Normal [facility] [facility] Comment on above: Result Comment: INCR EASED GLOMERULAR PERMEABILITY. A DECREASE IN TUBULAR FUNCTION CANNOT BE RULED OUT. Performed By: #### U A UMICAO #### [address] [place] [address] Job Coach/Job Developer: Savage Jacob MD Pathologist Review: ELECTRONICALLY SIGNED. LOKI FRANCISCO M.D. Normal [facility] Comment on above: Performed By: #### U A UMICAO #### [facility] [employer] [address] [place] [address] [phone] Job Coach/Job Developer: Savage Jacob MD Protime-INRon 07-06-2019 INR Coag (PPP) [Relative time] 1.2 {INR} [place] Interpretation and review of laboratory results Abnormal [place] PT Coag (PPP) [Time] 12.1 s High [place] VANCOMYCIN, RANDOMon 020 Vancomycin Random Date last dose NOT REPORTED [place] Vancomycin Random Dose amount NOT REPORTED [place] Vancomycin Random Time last dose NOT REPORTED [place] Vancomycin Rm 19.2 ug/mL [place] Vancomycin,Randomon 07-06-19 20 Vancomycin 19.2 ug/mL Normal [facility] Comment on above: Result Comment: High er trough serum vancomycin concentrations of 15-20 ug/mL are recommended for complicated infections such as bacteremia, endocarditis, osteomyelitis, meningitis, and hospital acquired pneumonia. Performed By: #### T YS #### [employer] [address] [place] [phone] Job Coach/Job Developer: Savage Jacob MD Date last dose, NOT REPORTED Normal [facility] Comment on above: Performed By: #### T YS #### [employer] [facility] [place] [address] Job Coach/Job Developer: Savage Jacob MD Dose amount, NOT REPORTED Normal [facility] Comment on above: Performed By: #### T YS #### [employer] [facility] [place], [place] [phone] Job Coach/Job Developer: Savage Jacob MD Time last dose, NOT REPORTED Normal [facility] Comment on above: Performed By: #### T YS #### [employer] [address] [place] [address] [phone] Job Coach/Job Developer: Savage Jacob MD XR CHEST PORTABLEon 07-06-19 [...] Ana Grace MD 07/06/19 Final result Normal [place] AMMONIAon 07-05-2019 Ammonia (P) [Mass/Vol] 26 umol/L 11 - 51 umol/L [place] Ammoniaon 07-05-2019 Ammonia (P) [Mass/Vol] 26 umol/L Normal 11-51 [facility] Comment on above: Performed By: #### U A, UMICAO #### [facility] [employer] [facility] [place] [address] Job Coach/Job Developer: Savage Jacob MD Anion Gap (Calc) POCon 07-05 Anion gap [Moles/Vol] 11 mmol/L 7 - 16 mmol/L [place] Anion gap [Moles/Vol] 13 mmol/L 7 - 16 mmol/L [place] Arterial Blood Gas, POCon Graham Test NOT APPLICABLE [place] FIO2 50.0 [place] Mode PRVC [place] Negative Base Excess, Art 2 [place] O2 Device/Flow/% Adult Ventilator [place] POC HCO3 22.7 mmol/L 21 - 28 mmol/L [place] POC O2 SAT 96 % 94 - 98 % [place] POC pCO2 38.3 [place] POC pCO2 Temp NOT REPORTED mm Hg [place] POC pH 7.381 [place] POC pH Temp NOT REPORTED [place] POC PO2 86.4 [place] POC pO2 Temp NOT REPORTED mm Hg [place] Positive Base Excess, Art NOT REPORTED [place] Pt Temp NOT REPORTED [place] Sample Site Arterial Line [place] TCO2 (calc), Art 24 mmol/L 22 - 29 mmol/L [place] Graham Test NOT APPLICABLE [place] FIO2 40.0 [place] Mode PRVC [place] Negative Base Excess, Art 3 High [place] O2 Device/Flow/% Adult Ventilator [place] POC HCO3 23.3 mmol/L 21 - 28 mmol/L [place] POC O2 SAT 94 % 94 - 98 % [place] POC pCO2 48.5 High [place] POC pCO2 Temp NOT REPORTED mm Hg [place] POC pH 7.289 Low [place] POC pH Temp NOT REPORTED [place] POC PO2 81.3 Low [place] POC pO2 Temp NOT REPORTED mm Hg [place] Positive Base Excess, Art NOT REPORTED [place] Pt Temp NOT REPORTED [place] Sample Site Arterial Line [place] TCO2 (calc), Art 25 mmol/L 22 - 29 mmol/L [place] BASIC METABOLIC PANELon 06-23 Anion gap [Moles/Vol] 18 mmol/L High 9 - 17 mmol/L [place] Bun/Cre Ratio NOT REPORTED [place] Calcium [Mass/Vol] 8.2 mg/dL Low 8.6 - 10. 4 mg/dL [place] Chloride [Moles/Vol] 110 mmol/L High 98 - 10 7 mmol/L [place] CO2 [Moles/Vol] 17 mmol/L Low 20 - 31 mmol/L [place] Creatinine [Mass/Vol] 1.66 mg/dL High 0.5 - 0.9 mg/dL [place] GFR 37 mL/min Low >60 [place] GFR Comment [place] GFR Non- 31 mL/min Low >60 [place] GFR Staging NOT REPORTED [place] Glucose [Mass/Vol] 176 mg/dL High 70 - 99 mg/dL [place] Interpretation and review of laboratory results Abnormal [place] Potassium [Moles/Vol] 4.5 mmol/L 3.7 - 5.3 mmol/L [place] Sodium [Moles/Vol] 145 mmol/L High 135 - 144 mmol/L [place] Urea nitrogen [Mass/Vol] 41 mg/dL High 8 - 23 mg/dL [place] BL GAS,MIX-RUFINO,EXTon 07-05- 020 HbCO, Mixed, Extended 0.6 % 0 - 5 % [place] Hemoglobin, Mixed, Extended 8.1 g/dL Low 12 - 18 g/dL [place] Interpretation and review of laboratory results Abnormal [place] MetHb, Mixed, Extended 0.6 % 0 - 1.5 % [place] O2 Content, Mixed, Extended 7 [place] O2 Sat, Mixed, Extended 59.4 % Low 60 - 80 % [place] Oxygen Status 40% [place] Basic Metabolic Panelon 06-23 Anion gap [Moles/Vol] 16 mmol/L 9 - 17 mmol/L [place] Bun/Cre Ratio NOT REPORTED [place] Calcium [Mass/Vol] 8.8 mg/dL 8.6 - 10. 4 mg/dL [place] Chloride [Moles/Vol] 112 mmol/L High 98 - 10 7 mmol/L [place] CO2 [Moles/Vol] 19 mmol/L Low 20 - 31 mmol/L [place] Creatinine [Mass/Vol] 1.81 mg/dL High 0.5 - 0.9 mg/dL [place] GFR 34 mL/min Low >60 [place] GFR Comment [place] GFR Non- 28 mL/min Low >60 [place] GFR Staging NOT REPORTED [place] Glucose [Mass/Vol] 131 mg/dL High 70 - 99 mg/dL [place] Interpretation and review of laboratory results Abnormal [place] Potassium [Moles/Vol] 4.7 mmol/L 3.7 - 5.3 mmol/L [place] Sodium [Moles/Vol] 147 mmol/L High 135 - 144 mmol/L [place] Urea nitrogen [Mass/Vol] 31 mg/dL High 8 - 23 mg/dL [place] Basic Metabolic Profon 07-05 (cont.) Normal [facility] Comment on above: Result Comment: Aver age GFR for 70 or more years old: 75 mL/min/1.73sq m Chronic Kidney Disease: <60 mL/min/1.73sq m Kidney failure: <15 mL/min/1.73sq m eGFR calculated using average adult body mass. Additional eGFR calculator available at: http://www.MFG.com.[employer]/multiple_crcl_2012.htm Performed By: #### B MP ####[facility] [address] [place] [address] Lab Director: Savage Jacob MD Anion gap [Moles/Vol] 18 mmol/L High 9-17 [facility] Comment on above: Performed By: #### B MP ####[facility] [address] [place], [place] [phone] Lab Director: Savage Jacob MD Calcium [Mass/Vol] 8.2 mg/dL Low 8.6-10.4 [facility] Comment on above: Performed By: #### B MP ####[facility] [address] [place], [place] [phone] Director: Savage Jacob MD Chloride [Moles/Vol] 110 mmol/L High 98-107 [facility] Comment on above: Performed By: #### B MP ####[facility] [address] [place], [place] [phone] Director: Savage Jacob MD CO2 [Moles/Vol] 17 mmol/L Low 20-31 [facility] Comment on above: Performed By: #### B MP ####[facility] [address] [place], [place] [phone] Director: Savage Jacob MD Creatinine [Mass/Vol] 1.66 mg/dL High 0.50-0.90 [facility] Comment on above: Performed By: #### B MP ####[facility] [address] [place], [place] [phone] Director: Savage Jacob MD GFR, Amer 37 mL/min Low >60 [facility] Comment on above: Performed By: #### B MP ####[facility] [address] [place], [place] [phone] Director: Savage Jacob MD GFR,non Amer 31 mL/min Low >60 [facility] Comment on above: Performed By: #### B MP ####[facility] [address] [place], [place] [phone] Director: Savage Jacob MD Glucose [Mass/Vol] 176 mg/dL High 70-99 [facility] Comment on above: Performed By: #### B MP ####[facility] [address] [place], [place] [phone] Director: Savage Jacob MD Potassium [Moles/Vol] 4.5 mmol/L Normal 3.7-5.3 [facility] Comment on above: Performed By: #### B MP ####[facility] [address] [place], [place] [phone] Director: Savage Jacob MD Sodium [Moles/Vol] 145 mmol/L High 135-144 [facility] Comment on above: Performed By: #### B MP ####[facility] [address] [place], [place] [phone] Director: Savage Jacob MD Urea nitrogen [Mass/Vol] 41 mg/dL High 8-23 [facility] Comment on above: Performed By: #### B MP ####[facility] [address] [place], [place] [phone] Director: Savage Jacob MD BUN/CRE Ratio NOT REPORTED Normal - [facility] Comment on above: Performed By: #### B MP ####[facility] [address] [place], [place] [phone] Director: Savage Jacob MD Staging: NOT REPORTED Normal [facility] Comment on above: Performed By: #### B MP ####[facility] [address] [place], [place] [phone] Director: Savage Jacob MD (cont.) Normal [facility] Comment on above: Result Comment: Aver age GFR for 70 or more years old: 75 mL/min/1.73sq m Chronic Kidney Disease: <60 mL/min/1.73sq m Kidney failure: <15 mL/min/1.73sq m eGFR calculated using average adult body mass. Additional eGFR calculator available at: http://www.MFG.com.[employer]/multiple_crcl_2012.htm Performed By: #### U MARY SanabriaO #### [facility] [address] [place] [address] Job Coach/Job Developer: Savage Jacob MD Anion gap [Moles/Vol] 16 mmol/L Normal 9-17 [facility] Comment on above: Performed By: #### DENIZ Chou #### [facility] [employer] [address] [place] [phone] Job Coach/Job Developer: Savage Jacob MD Calcium [Mass/Vol] 8.8 mg/dL Normal 8.6-10.4 [facility] Comment on above: Performed By: #### DENIZ Chou #### [facility] [employer] [address] [place] [address] Job Coach/Job Developer: Savage Jacob MD Chloride [Moles/Vol] 112 mmol/L High 98-107 [facility] Comment on above: Performed By: #### DENIZ Chou #### [address] [address] Job Coach/Job Developer: Savage Jacob MD CO2 [Moles/Vol] 19 mmol/L Low 20-31 [facility] Comment on above: Performed By: #### DENIZ Chou #### [address] [address] Job Coach/Job Developer: Savage Jacob MD Creatinine [Mass/Vol] 1.81 mg/dL High 0.50-0.90 [facility] Comment on above: Performed By: #### DENIZ Chou #### [facility] [employer] [address] [place] [address] Job Coach/Job Developer: Savage Jacob MD GFR, Amer 34 mL/min Low >60 [facility] Comment on above: Performed By: #### U DENIZ Sanabria #### [facility] [employer] [address] [place] [address] Job Coach/Job Developer: Savage Jacob MD GFR,non Amer 28 mL/min Low >60 [facility] Comment on above: Performed By: #### U A, UMICAO #### [facility] [address] [place] [address] Job Coach/Job Developer: Savage Jacob MD Glucose [Mass/Vol] 131 mg/dL High 70-99 [facility] Comment on above: Performed By: #### U A, UMICAO #### [facility] [address] [place] [address] Job Coach/Job Developer: Savage Jacob MD Potassium [Moles/Vol] 4.7 mmol/L Normal 3.7-5.3 [facility] Comment on above: Performed By: #### U A UMICAO #### [facility] [address] [place] [address] Job Coach/Job Developer: Savage Jacob MD Sodium [Moles/Vol] 147 mmol/L High 135-144 [facility] Comment on above: Performed By: #### U A UMICAO #### [facility] [address] [place] [address] Job Coach/Job Developer: Savage Jacob MD Urea nitrogen [Mass/Vol] 31 mg/dL High 8-23 [facility] Comment on above: Performed By: #### U A, UMICAO #### [facility] [address] [place] [address] Job Coach/Job Developer: Savage Jacob MD BUN/CRE Ratio NOT REPORTED Normal 9-20 [facility] Comment on above: Performed By: #### U A, UMICAO #### [facility] [address] [place] [address] Job Coach/Job Developer: Savage Jacob MD Staging: NOT REPORTED Normal [facility] Comment on above: Performed By: #### U A, UMICAO #### [facility] [address] [place] [address] Job Coach/Job Developer: Savage Jacob MD Bl Gas,Mix-Rufino,[place] 020 HbCO 0.6 % Normal 0-5.0 [facility] Comment on above: Performed By: #### U A UMICAO #### [facility] [address] [place] [address] Job Coach/Job Developer: Savage Jacob MD Hemoglobin (Bld) [Mass/Vol] 8.1 g/dL Low 12.0-18.0 [facility] Comment on above: Performed By: #### U A UMICAO #### [facility] [address] [place] [address] Job Coach/Job Developer: Savage Jacob MD MetHb 0.6 % Normal 0.0-1.5 [facility] Comment on above: Performed By: #### U A UMICAO #### [facility] [employer] [address] [place] [address] Job Coach/Job Developer: Savage Jacob MD O2 Content 7 vol % Normal 6-15 [facility] Comment on above: Performed By: #### U A UMICAO #### [facility] [employer] [address] [place] [address] Job Coach/Job Developer: Savage Jacob MD Oxygen saturation in Blood 59.4 % Low 60-80 [facility] Comment on above: Performed By: #### U A UMICAO #### [facility] [address] [place] [address] Job Coach/Job Developer: Savage Jacob MD Oxygen Status 40% Normal [facility] Comment on above: Performed By: #### U A UMICAO #### [facility] [employer] [address] [place] [address] Job Coach/Job Developer: Savage Jacob MD C3on 07-05-2019 C3 48 mg/dL Low 90-180 [facility] Comment on above: Performed By: #### C 3, C4, IFX, ANASCX, PE ####[facility] [address] [place] [address] Lab Director: Savage Jacob MD C3 COMPLEMENTon 07-05-2019 Complement C3 48 mg/dL Low 90 - 180 mg/dL [place] Interpretation and review of laboratory results Abnormal [place] C4on 07-05-2019 C4 11 mg/dL Normal 10-40 [facility] Comment on above: Performed By: #### C 3, C4, IFX, ANASCX, PE ####[facility] [address] [place] [address] Lab Director: Savage Jacob MD C4 COMPLEMENTon 07-05-2019 Complement C4 11 mg/dL 10 - 40 mg/dL [place] CALCIUM, IONIC (POC)on 07-05 POC Ionized Calcium 1.22 mmol/L 1.15 - 1 .33 mmol/L [place] POC Ionized Calcium 1.27 mmol/L 1.15 - 1 .33 mmol/L [place] CBCon 07-05-2019 Erythrocyte distribution width (RBC) [Ratio] 16.1 % High 11.8-14.4 [facility] Comment on above: Performed By: #### U DENIZ Sanabria #### [facility] [address] [place] [address] Job Coach/Job Developer: Savage Jacob MD Hematocrit (Bld) [Volume fraction] 25.7 % Low 36.3-47.1 [facility] Comment on above: Performed By: #### U ADENIZ #### [facility] [address] [place] [address] Job Coach/Job Developer: Savage Jacob MD Hemoglobin (Bld) [Mass/Vol] 8.4 g/dL Low 11.9-15.1 [facility] Comment on above: Performed By: #### U AMAKAYLAICAO #### [facility] [employer] [address] [place] [address] Job Coach/Job Developer: Savage Jacob MD MCH (RBC) [Entitic mass] 28.8 pg Normal 25.2-33.5 [facility] Comment on above: Performed By: #### U A, MARYO #### [address] [address] Job Coach/Job Developer: Savage Jacob MD MCHC (RBC) [Mass/Vol] 32.7 g/dL Normal 28.4-34.8 [facility] Comment on above: Performed By: #### U A, MARYO #### [address] [address] Job Coach/Job Developer: Savage Jacob MD MCV (RBC) [Entitic vol] 88.0 fL Normal 82.6-102.9 [facility] Comment on above: Performed By: #### U A, DENIZ #### [address] [address] Job Coach/Job Developer: Savage Jacob MD NRBC Automated 0.0 per 100 WBC Normal 0.0 [facility] Comment on above: Performed By: #### U A, MARYO #### [address] [address] Job Coach/Job Developer: Savage Jacob MD Platelet mean volume (Bld) [Entitic vol] 10.3 fL Normal 8.1-13.5 [facility] Comment on above: Performed By: #### U A, MARYO #### [address] [address] Job Coach/Job Developer: Savage Jacob MD Platelets (Bld) [#/Vol] 78 10*3/uL Low 138-453 [facility] Comment on above: Performed By: #### U A, UMICAO #### [address] [address] Job Coach/Job Developer: Savage Jacob MD RBC (Bld) [#/Vol] 2.92 10*6/uL Low 3.95-5.11 [facility] Comment on above: Performed By: #### U A, MARYO #### [facility] [address] [place], [place] [phone] Job Coach/Job Developer: Savage Jacob MD WBC (Bld) [#/Vol] 9.7 10*3/uL Normal 3.5-11.3 [facility] Comment on above: Performed By: #### U A, MARYO #### [facility] [address] [place], [place] [phone] Job Coach/Job Developer: Savage Jacob MD Erythrocyte distribution width (RBC) [Ratio] 16.1 % High 11.8 - 14.4 % [place] Hematocrit (Bld) [Volume fraction] 25.7 % Low 36.3 - 47.1 % [place] Hemoglobin (Bld) [Mass/Vol] 8.4 g/dL Low 11.9 - 15.1 g/dL [place] Interpretation and review of laboratory results Abnormal [place] MCH (RBC) [Entitic mass] 28.8 pg 25.2 - 33.5 pg [place] MCHC (RBC) [Mass/Vol] 32.7 g/dL 28.4 - 34.8 g/dL [place] MCV (RBC) [Entitic vol] 88.0 fL 82.6 - 102.9 fL [place] Platelet mean volume (Bld) [Entitic vol] 10.3 fL 8.1 - 13.5 fL [place] Platelets (Bld) [#/Vol] 78 10*3/uL Low [place] RBC (Bld) [#/Vol] 2.92 10*6/uL Low 3.95 - 5.1 1 m/uL [place] WBC (Bld) [#/Vol] 9.7 10*3/uL [place] WBC (Bld) [#/Vol] 0.0 10*3/uL 0.0 per 10 0 WBC [place] CHLORIDE (POC)on 07-05-2019 POC Chloride 113 mmol/L High 98 - 107 mmol/L [place] POC Chloride 110 mmol/L High 98 - 107 mmol/L [place] CHLORIDE, URINE, RANDOMon Chloride, Ur <20 mmol/L [place] CREATININE, RANDOM URINEon 0 07-05-2019 Creatinine, Ur 121.8 mg/dL 28 - 217 mg/dL [place] Chloride,Random [place] 020 Cl Conc. <20 Normal [facility] Comment on above: Result Comment: No n ormal range established. Performed By: #### DENIZ Chou #### [employer] [address] [place] [address] Job Coach/Job Developer: Savage Jacob MD Creatinine W/GFR Point of Ca reon 07-05-2019 GFR Comment 34 mL/min Low >60 [place] GFR Comment [place] GFR Non- 28 mL/min Low >60 [place] POC Creatinine 1.78 mg/dL High 0.51 - 1.19 mg/dL [place] GFR Comment 31 mL/min Low >60 [place] GFR Comment [place] GFR Non- 26 mL/min Low >60 [place] POC Creatinine 1.94 mg/dL High 0.51 - 1.19 mg/dL [place] Creatinine,Random Uron 07-05 Creatinine [Mass/Vol] 121.8 mg/dL Normal 28.0-217.0 [facility] Comment on above: Performed By: #### DENIZ Chou #### [employer] [address] [place] [address] Job Coach/Job Developer: Savage Jacob MD HEPATITIS PANEL, ACUTEon HAV IgM IA Qn (S) NONREACTIVE NONREACTIVE [place] Hep B Core Ab, IgM NONREACTIVE NONREACTIVE [place] Hepatitis B Surface Ag NONREACTIVE NONREACTIVE [facility], [place] Hepatitis C Ab NONREACTIVE NONREACTIVE [facility], [place] Hemoglobin and hematocrit, b loodon 07-05-2019 POC Hematocrit 21 % Low 36 - 46 % [place] POC Hemoglobin 7.2 g/dL Low 12 - 16 g/dL [place] POC Hematocrit 23 % Low 36 - 46 % [place] POC Hemoglobin 7.7 g/dL Low 12 - 16 g/dL [facility], [place] Hepatitis Acute Roro 07-05 Hep A Ab,IgM NONREACTIVE Normal NR [facility] Comment on above: Performed By: #### U A, UMICAO #### [facility] [employer] [address] [place] [address] Job Coach/Job Developer: Savage Jacob MD Hep B Core Ab,IgM NONREACTIVE Normal [facility] Comment on above: Performed By: #### U A, UMICAO #### [facility] [employer] [address] [place] [address] Job Coach/Job Developer: Savage Jacob MD Hep B Surf Ag NONREACTIVE Normal [facility] Comment on above: Performed By: #### U A, UMICAO #### [facility] [employer] [address] [place] [address] Job Coach/Job Developer: Savage Jacob MD Hep C Ab NONREACTIVE Normal [facility] Comment on above: Result Comment: The [...] RNA by PCR. Performed By: #### U A, UMICAO #### [facility] [employer] [address] [place] [address] [phone] Job Coach/Job Developer: Savage Jacob MD K (Potassium)on 07-05-2019 Potassium [Moles/Vol] 4.6 mmol/L Normal 3.7-5.3 [facility] Comment on above: Performed By: #### DENIZ Chou #### [facility] [address] [place] [address] [phone] Job Coach/Job Developer: Savage Jacob MD Lactic Acid, POCon 0 POC Lactic Acid 0.44 mmol/L Low 0.56 - 1.39 mmol/L [place] POC Lactic Acid 0.98 mmol/L 0.56 - 1.39 mmol/L [place] MAGNESIUMon 07-05-2019 Magnesium [Mass/Vol] 2.0 mg/dL 1.6 - 2 .6 mg/dL [place] Magnesiumon 07-05-2019 Magnesium [Mass/Vol] 2.1 mg/dL Normal 1.6-2.6 [facility] Comment on above: Performed By: #### DENIZ Chou #### [facility] [address] [place] [address] [phone] Job Coach/Job Developer: Savage Jacob MD Magnesium [Mass/Vol] 2.1 mg/dL 1.6 - 2 .6 mg/dL [place] Magnesium [Mass/Vol] 2.0 mg/dL Normal 1.6-2.6 [facility] Comment on above: Performed By: #### DENIZ Chou #### [facility] [address] [place] [address] [phone] Job Coach/Job Developer: Savage Jacob MD Otheron 07-05-2019 Interpretation and review of laboratory results Abnormal [place] Interpretation and review of laboratory results Abnormal [place] POC Glucose Fingerstickon Interpretation and review of laboratory results Abnormal [place] POC Glucose 176 mg/dL High 65 - 105 mg/dL [place] Interpretation and review of laboratory results Abnormal [place] POC Glucose 162 mg/dL High 65 - 105 mg/dL [place] Interpretation and review of laboratory results Abnormal [place] POC Glucose 137 mg/dL High 65 - 105 mg/dL [place] Interpretation and review of laboratory results Abnormal [place] POC Glucose 120 mg/dL High 65 - 105 mg/dL [place] POCT Glucoseon 07-05-2019 POC Glucose 133 mg/dL High 74 - 100 mg/dL [place] POC Glucose 130 mg/dL High 74 - 100 mg/dL [place] POTASSIUMon 07-05-2019 Potassium [Moles/Vol] 4.6 mmol/L 3.7 - 5.3 mmol/L [place] POTASSIUM (POC)on 07-05-2019 POC Potassium 4.5 mmol/L 3.5 - 4.5 mmol/L [place] POC Potassium 4.5 mmol/L 3.5 - 4.5 mmol/L [place] POTASSIUM, URINE, RANDOMon 0 07-05-2019 Potassium, Ur >150.0 mmol/L [place] PREPARE PLATELETS, 1 Product on 07-05-2019 Blood product type Nom (BPU) LkIrPlt PAS [place] Dispense Status TRANSFUSED [place] Transfusion Status OK TO TRANSFUSE [place] Unit Divison 0 [place] Unit Number [id number] [place] PTon 07-05-2019 INR Coag (PPP) [Relative time] 1.1 {INR} Normal [facility] Comment on above: Result Comment: Therapeutic Range: Moderate Anticoagulant Intensity: INR = 2.0-3.0 High Anticoagulant Intensity: INR = 2.5-3.5 Performed By: #### DENIZ Chou #### [facility] [address] [place] [address] Job Coach/Job Developer: Savage Jacob MD PT Coag (PPP) [Time] 11.8 s Normal 9.0-12.0 [facility] Comment on above: Performed By: #### DENIZ Chou #### [facility] [address] [place] [address] Job Coach/Job Developer: Savage Jacob MD Potassium,Random Uron 2019 K Conc. >150.0 Normal [facility] Comment on above: Result Comment: No n ormal range established. Performed By: #### U A, UMICAO #### [facility] [address] [place] [address] Job Coach/Job Developer: Savage Jacob MD Prot. Electroph, Blon 2019 Protein [Mass/Vol] 4.7 g/dL Low 6.4-8.3 [facility] Comment on above: Performed By: #### C 3, C4, IFX, ANASCX, PE ####[facility] [place] [address] Lab Director: Savage Jacob MD Prot. Electroph, Uron 2019 Protein [Mass/Vol] 37 mg/dL Normal [facility] Comment on above: Performed By: #### U A, UMICAO #### [facility] [address] [place] [address] Job Coach/Job Developer: Savage Jacob MD Type of Specimen .URINE Normal [facility] Comment on above: Performed By: #### U A, UMICAO #### [facility] [address] [place] [address] Job Coach/Job Developer: Savage Jacob MD Protime-INRon 07-05-2019 INR Coag (PPP) [Relative time] 1.1 {INR} [facility] [employer] PT Coag (PPP) [Time] 11.8 s [facility] [employer] SODIUM (POC)on 07-05-2019 POC Sodium 147 mmol/L High 138 - 146 mmol/L [facility] POC Sodium 146 mmol/L 138 - 146 mmol/L [facility] SODIUM, URINE, RANDOMon 06-23 Sodium,Ur <20 mmol/L [facility] [employer] Sodium, Random Uron 07-05-19 20 Na Conc. Urine <20 Normal [facility] Comment on above: Result Comment: No n ormal range established. Performed By: #### U A, DENIZ #### [facility] [employer] [address] [place] [address] Job Coach/Job Developer: Savage Jacob MD Surgical Pathologyon 020 Surgical Pathology Report [place] URINALYSIS WITH MICROSCOPICo n 07-05-2019 Amorphous, UA NOT REPORTED None [place] Bacteria, UA NOT REPORTED None [place] Bilirubin Urine Negative NEGATIVE [place] Casts UA HYALINE [place] Casts UA 10 TO 20 [place] Color, UA YELLOW YELLOW [place] Crystals, UA NOT REPORTED None /HPF [place] Epithelial Cells UA 2 TO 5 [place] Glucose, Ur Negative NEGATIVE [place] Interpretation and review of laboratory results Abnormal [place] Ketones Ql (U) MODERATE Abnormal NEGATIVE [place] Leukocyte esterase Test strip Ql (U) Negative NEGATIVE [place] Mucus, UA NOT REPORTED None [place] Nitrite, Urine Negative NEGATIVE [place] Other Observations UA NOT REPORTED NOT REQ. M [place] pH, UA 5.0 [place] Protein, UA 1+ Abnormal NEGATIVE [place] RBC (U) [#/Vol] 2 TO 5 [place] Renal Epithelial, UA NOT REPORTED 0 /HPF [place] Specific [place], UA 1.035 High [place] Trichomonas, UA NOT REPORTED None [facility] [place] Turbidity UA CLEAR CLEAR [place] Urine Hgb Negative NEGATIVE [place] Urobilinogen, Urine Normal Normal [place] WBC, UA 2 TO 5 [place] Yeast, UA NOT REPORTED None [place] US RENAL COMPLETEon 07-05-19 20 US [...] Enzo Plascencia MD 07/05/19 Final result Normal [facility], [facility], [facility], [place] Urinalysis w/ Microon 2019 Casts LM.LPF (Urine sed) [#/Area] HYALINE Normal 0-2 [facility] Comment on above: Result Comment: 10 T O 20 Performed By: #### U A, UMICAO #### [facility] [address] [place], [place] [id number] Job Coach/Job Developer: Savage Jacob MD Epithelial cells LM.HPF (Urine sed) [#/Area] 2 TO 5 Normal 0-5 [facility] Comment on above: Performed By: #### U A, UMICAO #### [employer] [address] [place] [address] Job Coach/Job Developer: Savage Jacob MD RBC (U) [#/Vol] 2 TO 5 Normal 0-2 [facility] Comment on above: Performed By: #### U A, UMICAO #### [facility] [address] [place] [address] Job Coach/Job Developer: Savage Jacob MD WBC (U) [#/Vol] 2 TO 5 Normal 0-5 [facility] Comment on above: Performed By: #### U A, UMICAO #### [facility] [address] [place] [address] Job Coach/Job Developer: Savage Jacob MD ----- Normal [facility] Comment on above: Performed By: #### U A, UMICAO #### [facility] [address] [place] [address] Job Coach/Job Developer: Savage Jacob MD Acetoacetic Acid,Ur MODERATE Abnormal NEG [facility] Comment on above: Performed By: #### U A, UMICAO #### [facility] [address] [place] [address] Job Coach/Job Developer: Savage Jacob MD Bilirubin, SemiQt,Ur Negative Normal NEG [facility] Comment on above: Performed By: #### U A, UMICAO #### [facility] [address] [place] [address] Job Coach/Job Developer: Savage Jacob MD Color (U) YELLOW Normal YEL [facility] Comment on above: Performed By: #### U A, UMICAO #### [facility] [address] [place] [address] Job Coach/Job Developer: Savage Jacob MD Glucose Ql (U) Negative Normal NEG [facility] Comment on above: Performed By: #### U A, UMICAO #### [facility] [address] [place] [address] Job Coach/Job Developer: Savage Jacob MD Hemoglobin, Ur Negative Normal NEG [facility] Comment on above: Performed By: #### U A, UMICAO #### [address] [address] Job Coach/Job Developer: Savage Jacob MD Leukocyte esterase Test strip Ql (U) Negative Normal NEG [facility] Comment on above: Performed By: #### U A, UMICAO #### [address] [address] Job Coach/Job Developer: Savage Jacob MD Nitrite,Ur Negative Normal NEG [facility] Comment on above: Performed By: #### U A UMICAO #### [address] [address] Job Coach/Job Developer: Savage Jacob MD pH (U) 5.0 [pH] Normal 5.0-8.0 [facility] Comment on above: Performed By: #### U A, UMICAO #### [address] [address] Job Coach/Job Developer: Savage Jacob MD Protein Ql (U) 1+ Abnormal NEG [facility] Comment on above: Performed By: #### U A, UMICAO #### [address] [address] Job Coach/Job Developer: Savage Jacob MD Specific gravity (U) [Rel density] 1.035 High 1.005-1.030 [facility] Comment on above: Performed By: #### U A, UMICAO #### [address] [address] Job Coach/Job Developer: Savage Jacob MD Turbidity CLEAR Normal CLEAR [facility] Comment on above: Performed By: #### U A, UMICAO #### [address] [address] Job Coach/Job Developer: Savage Jacob MD Urobilinogen,Ur Normal Normal NORM [facility] Comment on above: Performed By: #### U A, UMICAO #### [facility] [place] [address] Job Coach/Job Developer: Savage Jacob MD Amorphous sediment LM Ql (Urine sed) NOT REPORTED Normal NONE [facility] Comment on above: Performed By: #### U A, UMICAO #### [facility] [address] [place] [address] Job Coach/Job Developer: Savage Jacob MD Bacteria LM.HPF (Urine sed) [#/Area] NOT REPORTED Normal NONE [facility] Comment on above: Performed By: #### U A, UMICAO #### [facility] [employer] [address] [place] [address] Job Coach/Job Developer: Savage Jacob MD Crystals LM Nom (Urine sed) NOT REPORTED Normal NONE [facility] Comment on above: Performed By: #### U A, UMICAO #### [facility] [employer] [address] [place] [address] Job Coach/Job Developer: Savage Jacob MD Epithelial, Renal NOT REPORTED Normal 0 [facility] Comment on above: Performed By: #### U A, UMICAO #### [facility] [employer] [address] [place] [address] Job Coach/Job Developer: Savage Jacob MD Mucus Strands NOT REPORTED Normal NONE [facility] Comment on above: Performed By: #### U A, UMICAO #### [facility] [employer] [address] [place] [address] Job Coach/Job Developer: Savage Jacob MD Other Observations NOT REPORTED Normal NREQ [facility] Comment on above: Performed By: #### U A, UMICAO #### [facility] [address] [place] [address] Job Coach/Job Developer: Savage Jacob MD Trichomonas NOT REPORTED Normal NONE [facility] Comment on above: Performed By: #### U Daniele, MARYO #### [facility] [address] [place] [address] Job Coach/Job Developer: Savage Jacob MD Yeast LM Ql (Urine sed) NOT REPORTED Normal NONE [facility] Comment on above: Performed By: #### U A, MAKAYLAICAO #### [facility] [address] [place] [address] Job Coach/Job Developer: Savage Jacob MD XR CHEST PORTABLEon 07-05-19 20 XR CHEST PORTABLE EXAMINATION: ONE XRAY [...] tube in stable position. There is a [place]-Shawn catheter. There is a right-sided subclavian line in stable position. IMPRESSION: Mild pulmonary congestion with stable support tubes. Interpreted by: Lm Clemente MD Signed by: Lm Clemente MD 07/05/19 Final result Normal [place], [place] Anion Gap (Calc) POCon 07-04 Anion gap [Moles/Vol] 11 mmol/L 7 - 16 mmol/L [place] Anion gap [Moles/Vol] 11 mmol/L 7 - 16 mmol/L [place] Anion gap [Moles/Vol] 15 mmol/L 7 - 16 mmol/L [place] Arterial Blood Gas, POCon Graham Test NOT REPORTED [place] FIO2 40.0 [place] Mode SIMV(PRVC)+ PS [place] Negative Base Excess, Art NOT REPORTED [place] O2 Device/Flow/% Adult Ventilator [place] POC HCO3 27.5 mmol/L 21 - 28 mmol/L [place] POC O2 SAT 93 % Low 94 - 98 % [place] POC pCO2 38.7 [place] POC pCO2 Temp NOT REPORTED mm Hg [place] POC pH 7.459 High [place] POC pH Temp NOT REPORTED [place] POC PO2 64.1 Low [place] POC pO2 Temp NOT REPORTED mm Hg [place] Positive Base Excess, Art 3 [place] Pt Temp NOT REPORTED [place] Sample Site Arterial Line [place] TCO2 (calc), Art 29 mmol/L 22 - 29 mmol/L [place] Graham Test NOT APPLICABLE [place] FIO2 40.0 [place] Mode [place] Negative Base Excess, Art NOT REPORTED [place] O2 Device/Flow/% Adult Ventilator [place] POC HCO3 26.9 mmol/L 21 - 28 mmol/L [place] POC O2 SAT 99 % High 94 - 98 % [place] POC pCO2 41.7 [place] POC pCO2 Temp NOT REPORTED mm Hg [place] POC pH 7.417 [place] POC pH Temp NOT REPORTED [place] POC PO2 145.4 High [place] POC pO2 Temp NOT REPORTED mm Hg [place] Positive Base Excess, Art 2 [place] Pt Temp NOT REPORTED [place] Sample Site Arterial Line [place] TCO2 (calc), Art 28 mmol/L 22 - 29 mmol/L [place] Graham Test NOT APPLICABLE [place] FIO2 40.0 [place] Mode [place] Negative Base Excess, Art NOT REPORTED [place] O2 Device/Flow/% Adult Ventilator [place] POC HCO3 24.9 mmol/L 21 - 28 mmol/L [place] POC O2 SAT 100 % High 94 - 98 % [place] POC pCO2 39.5 [place] POC pCO2 Temp NOT REPORTED mm Hg [place] POC pH 7.408 [place] POC pH Temp NOT REPORTED [place] POC PO2 167.2 High [place] POC pO2 Temp NOT REPORTED mm Hg [place] Positive Base Excess, Art 0 [place] Pt Temp NOT REPORTED [place] Sample Site Arterial Line [place] TCO2 (calc), Art 26 mmol/L 22 - 29 mmol/L [place] BASIC METABOLIC PANELon 06-23 Anion gap [Moles/Vol] 12 mmol/L 9 - 17 mmol/L [place] Bun/Cre Ratio NOT REPORTED [place] Calcium [Mass/Vol] 9.4 mg/dL 8.6 - 10. 4 mg/dL [place] Chloride [Moles/Vol] 114 mmol/L High 98 - 10 7 mmol/L [place] CO2 [Moles/Vol] 23 mmol/L 20 - 31 mmol/L [place] Creatinine [Mass/Vol] 1.56 mg/dL High 0.5 - 0.9 mg/dL [place] GFR 40 mL/min Low >60 [place] GFR Comment [place] GFR Non- 33 mL/min Low >60 [place] GFR Staging NOT REPORTED [place] Glucose [Mass/Vol] 114 mg/dL High 70 - 99 mg/dL [place] Interpretation and review of laboratory results Abnormal [place] Potassium [Moles/Vol] 3.8 mmol/L 3.7 - 5.3 mmol/L [place] Sodium [Moles/Vol] 149 mmol/L High 135 - 144 mmol/L [place] Urea nitrogen [Mass/Vol] 26 mg/dL High 8 - 23 mg/dL [place] Anion gap [Moles/Vol] 13 mmol/L 9 - 17 mmol/L [place] Bun/Cre Ratio NOT REPORTED [place] Calcium [Mass/Vol] 8.6 mg/dL 8.6 - 10. 4 mg/dL [place] Chloride [Moles/Vol] 115 mmol/L High 98 - 10 7 mmol/L [place] CO2 [Moles/Vol] 23 mmol/L 20 - 31 mmol/L [place] Creatinine [Mass/Vol] 1.53 mg/dL High 0.5 - 0.9 mg/dL [place] GFR 41 mL/min Low >60 [place] GFR Comment [place] GFR Non- 34 mL/min Low >60 [place] GFR Staging NOT REPORTED [place] Glucose [Mass/Vol] 111 mg/dL High 70 - 99 mg/dL [place] Interpretation and review of laboratory results Abnormal [place] Potassium [Moles/Vol] 4.0 mmol/L 3.7 - 5.3 mmol/L [place] Sodium [Moles/Vol] 151 mmol/L High 135 - 144 mmol/L [place] Urea nitrogen [Mass/Vol] 25 mg/dL High 8 - 23 mg/dL [place] Basic Metabolic Panelon 06-23 Anion gap [Moles/Vol] 15 mmol/L 9 - 17 mmol/L [place] Bun/Cre Ratio NOT REPORTED [place] Calcium [Mass/Vol] 9.0 mg/dL 8.6 - 10. 4 mg/dL [place] Chloride [Moles/Vol] 114 mmol/L High 98 - 10 7 mmol/L [place] CO2 [Moles/Vol] 23 mmol/L 20 - 31 mmol/L [place] Creatinine [Mass/Vol] 1.39 mg/dL High 0.5 - 0.9 mg/dL [place] GFR 45 mL/min Low >60 [place] GFR Comment [place] GFR Non- 37 mL/min Low >60 [place] GFR Staging NOT REPORTED [place] Glucose [Mass/Vol] 148 mg/dL High 70 - 99 mg/dL [place] Interpretation and review of laboratory results Abnormal [place] Potassium [Moles/Vol] 4.5 mmol/L 3.7 - 5.3 mmol/L [place] Sodium [Moles/Vol] 152 mmol/L High 135 - 144 mmol/L [place] Urea nitrogen [Mass/Vol] 21 mg/dL 8 - 23 mg/dL [place] Basic Metabolic Profon 07-04 Potassium [Moles/Vol] 3.8 mmol/L Normal 3.7-5.3 [facility] Comment on above: Performed By: #### P T, PTT #### [facility] [address] [place] [address] Job Coach/Job Developer: Savage Jacob MD (cont.) [facility] Comment on above: Result Comment: Aver age GFR for 70 or more years old: 75 mL/min/1.73sq m Chronic Kidney Disease: <60 mL/min/1.73sq m Kidney failure: <15 mL/min/1.73sq m eGFR calculated using average adult body mass. Additional eGFR calculator available at: http://www.MFG.com.[employer]/multiple_crcl_2012.htm Performed By: #### P T, PTT #### [facility] [place] [address] Job Coach/Job Developer: Savage Jacob MD Anion gap [Moles/Vol] 12 mmol/L Normal 9-17 [facility] Comment on above: Performed By: #### P T, PTT #### [employer] [address] [place] [address] Job Coach/Job Developer: Savage Jacob MD Calcium [Mass/Vol] 9.4 mg/dL Normal 8.6-10.4 [facility] Comment on above: Performed By: #### P T, PTT #### [address] [address] Job Coach/Job Developer: Savage Jacob MD Chloride [Moles/Vol] 114 mmol/L High 98-107 [facility] Comment on above: Performed By: #### P T, PTT #### [facility] [address] [place] [address] Job Coach/Job Developer: Savage Jacob MD CO2 [Moles/Vol] 23 mmol/L Normal 20-31 [facility] Comment on above: Performed By: #### P T, PTT #### [address] [address] Job Coach/Job Developer: Savage Jacob MD Creatinine [Mass/Vol] 1.56 mg/dL High 0.50-0.90 [facility] Comment on above: Performed By: #### P T, PTT #### [address] [address] Job Coach/Job Developer: Savage Jacob MD GFR, Amer 40 mL/min Low >60 [facility] Comment on above: Performed By: #### P T, PTT #### [address] [address] Job Coach/Job Developer: Savage Jacob MD GFR,non Amer 33 mL/min Low >60 [facility] Comment on above: Performed By: #### P T, PTT #### [address] [address] Job Coach/Job Developer: Savage Jacob MD Glucose [Mass/Vol] 114 mg/dL High 70-99 [facility] Comment on above: Performed By: #### P T, PTT #### [address] [address] Job Coach/Job Developer: Savage Jacob MD Sodium [Moles/Vol] 149 mmol/L High 135-144 [facility] Comment on above: Performed By: #### P T, PTT #### [address] [address] Job Coach/Job Developer: Savage Jacob MD Urea nitrogen [Mass/Vol] 26 mg/dL High 8-23 [facility] Comment on above: Performed By: #### P T, PTT #### [address] [address] Job Coach/Job Developer: Savage Jacob MD BUN/CRE Ratio NOT REPORTED Normal -20 [facility] Comment on above: Performed By: #### P T, PTT #### [address] [address] Job Coach/Job Developer: Savage Jacob MD Staging: NOT REPORTED Normal [facility] Comment on above: Performed By: #### P T, PTT #### [address] [address] Job Coach/Job Developer: Savage Jacob MD (cont.) Normal [facility] Comment on above: Result Comment: Aver age GFR for 70 or more years old: 75 mL/min/1.73sq m Chronic Kidney Disease: <60 mL/min/1.73sq m Kidney failure: <15 mL/min/1.73sq m eGFR calculated using average adult body mass. Additional eGFR calculator available at: http://www.MFG.com.com/multiple_crcl_2012.htm Performed By: #### P T, PTT #### [address] [address] Job Coach/Job Developer: Savage Jacob MD Anion gap [Moles/Vol] 13 mmol/L Normal 9-17 [facility] Comment on above: Performed By: #### P T, PTT #### [facility] [address] [place] [address] Job Coach/Job Developer: Savage Jacob MD Calcium [Mass/Vol] 8.6 mg/dL Normal 8.6-10.4 [facility] Comment on above: Performed By: #### P T, PTT #### [facility] [address] [place] [address] Job Coach/Job Developer: Savage Jacob MD Chloride [Moles/Vol] 115 mmol/L High 98-107 [facility] Comment on above: Performed By: #### P T, PTT #### [facility] [address] [place] [address] Job Coach/Job Developer: Savage Jacob MD CO2 [Moles/Vol] 23 mmol/L Normal 20-31 [facility] Comment on above: Performed By: #### P T, PTT #### [facility] [employer] [address] [place] [address] Job Coach/Job Developer: Savage Jacob MD Creatinine [Mass/Vol] 1.53 mg/dL High 0.50-0.90 [facility] Comment on above: Performed By: #### P T, PTT #### [facility] [employer] [address] [place] [address] Job Coach/Job Developer: Savage Jacob MD GFR, Amer 41 mL/min Low >60 [facility] Comment on above: Performed By: #### P T, PTT #### [facility] [address] [place] [address] Job Coach/Job Developer: Savage Jacob MD GFR,non Amer 34 mL/min Low >60 [facility] Comment on above: Performed By: #### P T, PTT #### [facility] [address] [place] [address] Job Coach/Job Developer: Savage Jacob MD Glucose [Mass/Vol] 111 mg/dL High 70-99 [facility] Comment on above: Performed By: #### P T, PTT #### [address] [address] Job Coach/Job Developer: Savage Jacob MD Potassium [Moles/Vol] 4.0 mmol/L Normal 3.7-5.3 [facility] Comment on above: Performed By: #### P T, PTT #### [address] [address] Job Coach/Job Developer: Savage Jacob MD Sodium [Moles/Vol] 151 mmol/L High 135-144 [facility] Comment on above: Performed By: #### P T, PTT #### [facility] [employer] [address] [place] [address] Job Coach/Job Developer: Savage Jacob MD Urea nitrogen [Mass/Vol] 25 mg/dL High 8-23 [facility] Comment on above: Performed By: #### P T, PTT #### [address] [address] Job Coach/Job Developer: Savage Jacob MD BUN/CRE Ratio NOT REPORTED Normal -20 [facility] Comment on above: Performed By: #### P T, PTT #### [address] [address] Job Coach/Job Developer: Savage Jacob MD Staging: NOT REPORTED Normal [facility] Comment on above: Performed By: #### P T, PTT #### [address] [address] Job Coach/Job Developer: Savage Jacob MD (cont.) Normal [facility] Comment on above: Result Comment: Aver age GFR for 70 or more years old: 75 mL/min/1.73sq m Chronic Kidney Disease: <60 mL/min/1.73sq m Kidney failure: <15 mL/min/1.73sq m eGFR calculated using average adult body mass. Additional eGFR calculator available at: http://www.MFG.com.com/multiple_crcl_2012.htm Performed By: #### C DP, PFA, CP, GLYHGB #### [facility] [employer] [address] [place] [address] Job Coach/Job Developer: Savage Jacob MD Anion gap [Moles/Vol] 15 mmol/L Normal 9-17 [facility] Comment on above: Performed By: #### C DP, PFA, CP, GLYHGB #### [facility] [employer] [address] [place] [address] Job Coach/Job Developer: Savage Jacob MD Calcium [Mass/Vol] 9.0 mg/dL Normal 8.6-10.4 [facility] Comment on above: Performed By: #### C DP, PFA, CP, GLYHGB #### [address] [address] Job Coach/Job Developer: Savage Jacob MD Chloride [Moles/Vol] 114 mmol/L High 98-107 [facility] Comment on above: Performed By: #### C DP, PFA, CP, GLYHGB #### [facility] [employer] [address] [place] [address] Job Coach/Job Developer: Savage Jacob MD CO2 [Moles/Vol] 23 mmol/L Normal 20-31 [facility] Comment on above: Performed By: #### C DP, PFA, CP, GLYHGB #### [facility] [employer] [address] [place] [address] Job Coach/Job Developer: Savage Jacob MD Creatinine [Mass/Vol] 1.39 mg/dL High 0.50-0.90 [facility] Comment on above: Performed By: #### C DP, PFA, CP, GLYHGB #### [facility] [employer] [address] [place] [address] Job Coach/Job Developer: Savage Jacob MD GFR, Amer 45 mL/min Low >60 [facility] Comment on above: Performed By: #### C DP, PFA, CP, GLYHGB #### [address] [address] Job Coach/Job Developer: Savage Jacob MD GFR,non Amer 37 mL/min Low >60 [facility] Comment on above: Performed By: #### C DP, PFA, CP, GLYHGB #### [address] [address] Job Coach/Job Developer: Savage Jacob MD Glucose [Mass/Vol] 148 mg/dL High 70-99 [facility] Comment on above: Performed By: #### C DP, PFA, CP, GLYHGB #### [address] [address] Job Coach/Job Developer: Savage Jacob MD Potassium [Moles/Vol] 4.5 mmol/L Normal 3.7-5.3 [facility] Comment on above: Performed By: #### C DP, PFA, CP, GLYHGB #### [address] [address] Job Coach/Job Developer: Savage Jacob MD Sodium [Moles/Vol] 152 mmol/L High 135-144 [facility] Comment on above: Performed By: #### C DP, PFA, CP, GLYHGB #### [address] [address] Job Coach/Job Developer: Savage Jacob MD Urea nitrogen [Mass/Vol] 21 mg/dL Normal 8-23 [facility] Comment on above: Performed By: #### C DP, PFA, CP, GLYHGB #### [address] [address] Job Coach/Job Developer: Savage Jacob MD BUN/CRE Ratio NOT REPORTED Normal 9-20 [facility] Comment on above: Performed By: #### C DP, PFA, CP, GLYHGB #### [address] [address] Job Coach/Job Developer: Savage Jacob MD Staging: NOT REPORTED Normal [facility] Comment on above: Performed By: #### C DP, PFA, CP, GLYHGB #### [address] [address] Job Coach/Job Developer: Savage Jacob MD (cont.) Normal [facility] Comment on above: Result Comment: Aver age GFR for 70 or more years old: 75 mL/min/1.73sq m Chronic Kidney Disease: <60 mL/min/1.73sq m Kidney failure: <15 mL/min/1.73sq m eGFR calculated using average adult body mass. Additional eGFR calculator available at: http://www.[employer]/multiple_crcl_2011.htm Performed By: #### C DP, PFA, CP, GLYHGB #### [address] [address] Job Coach/Job Developer: Savage Jacob MD Anion gap [Moles/Vol] 21 mmol/L High 9-17 [facility] Comment on above: Performed By: #### C DP, PFA, CP, GLYHGB #### [address] [address] Job Coach/Job Developer: Savage Jacob MD Calcium [Mass/Vol] 9.3 mg/dL Normal 8.6-10.4 [facility] Comment on above: Performed By: #### C DP, PFA, CP, GLYHGB #### [facility] [employer] [address] [place] [address] Job Coach/Job Developer: Savage Jacob MD Chloride [Moles/Vol] 113 mmol/L High 98-107 [facility] Comment on above: Performed By: #### C DP, PFA, CP, GLYHGB #### [facility] [employer] [address] [place] [address] Job Coach/Job Developer: Savage Jacob MD CO2 [Moles/Vol] 19 mmol/L Low 20-31 [facility] Comment on above: Performed By: #### C DP, PFA, CP, GLYHGB #### [facility] [address] [place] [address] Job Coach/Job Developer: Savage Jacob MD Creatinine [Mass/Vol] 1.35 mg/dL High 0.50-0.90 [facility] Comment on above: Performed By: #### C DP, PFA, CP, GLYHGB #### [address] [address] Job Coach/Job Developer: Savage Jacob MD GFR, Amer 47 mL/min Low >60 [facility] Comment on above: Performed By: #### C DP, PFA, CP, GLYHGB #### [address] [address] Job Coach/Job Developer: Savage Jacob MD GFR,non Amer 39 mL/min Low >60 [facility] Comment on above: Performed By: #### C DP, PFA, CP, GLYHGB #### [facility] [employer] [address] [place] [address] Job Coach/Job Developer: Savage Jacob MD Glucose [Mass/Vol] 178 mg/dL High 70-99 [facility] Comment on above: Performed By: #### C DP, PFA, CP, GLYHGB #### [facility] [address] [place] [address] Job Coach/Job Developer: Savage Jacob MD Potassium [Moles/Vol] 3.9 mmol/L Normal 3.7-5.3 [facility] Comment on above: Performed By: #### C DP, PFA, CP, GLYHGB #### [facility] [employer] [address] [place] [address] Job Coach/Job Developer: Savage Jacob MD Sodium [Moles/Vol] 153 mmol/L High 135-144 [facility] Comment on above: Performed By: #### C DP, PFA, CP, GLYHGB #### [address] [address] Job Coach/Job Developer: Savage Jacob MD Urea nitrogen [Mass/Vol] 18 mg/dL Normal 8-23 [facility] Comment on above: Performed By: #### C DP, PFA, CP, GLYHGB #### [address] [address] Job Coach/Job Developer: Savage Jacob MD BUN/CRE Ratio NOT REPORTED Normal -20 [facility] Comment on above: Performed By: #### C DP, PFA, CP, GLYHGB #### [address] [address] Job Coach/Job Developer: Savage Jacob MD Staging: NOT REPORTED Normal [facility] Comment on above: Performed By: #### C DP, PFA, CP, GLYHGB #### [address] [address] Job Coach/Job Developer: Savage Jacob MD (cont.) Normal [facility] Comment on above: Result Comment: Aver age GFR for 70 or more years old: 75 mL/min/1.73sq m Chronic Kidney Disease: <60 mL/min/1.73sq m Kidney failure: <15 mL/min/1.73sq m eGFR calculated using average adult body mass. Additional eGFR calculator available at: http://[email or web address].com.com/multiple_crcl_2012.htm Performed By: #### C DP, PFA, CP, GLYHGB #### [address] [address] Job Coach/Job Developer: Savage Jacob MD Anion gap [Moles/Vol] 19 mmol/L High 9-17 [facility] Comment on above: Performed By: #### C DP, PFA, CP, GLYHGB #### [facility] [employer] [address] [place] [address] Job Coach/Job Developer: Savage Jacob MD Calcium [Mass/Vol] 9.8 mg/dL Normal 8.6-10.4 [facility] Comment on above: Performed By: #### C DP, PFA, CP, GLYHGB #### [facility] [employer] [address] [place] [address] Job Coach/Job Developer: Savage Jacob MD Chloride [Moles/Vol] 113 mmol/L High 98-107 [facility] Comment on above: Performed By: #### C DP, PFA, CP, GLYHGB #### [facility] [employer] [address] [place] [address] Job Coach/Job Developer: Savage Jacob MD CO2 [Moles/Vol] 21 mmol/L Normal 20-31 [facility] Comment on above: Performed By: #### C DP, PFA, CP, GLYHGB #### [facility] [employer] [address] [place] [address] Job Coach/Job Developer: Savage Jacob MD Creatinine [Mass/Vol] 1.16 mg/dL High 0.50-0.90 [facility] Comment on above: Performed By: #### C DP, PFA, CP, GLYHGB #### [facility] [employer] [address] [place] [address] Job Coach/Job Developer: Savage Jacob MD GFR, Amer 56 mL/min Low >60 [facility] Comment on above: Performed By: #### C DP, PFA, CP, GLYHGB #### [facility] [employer] [address] [place] [address] Job Coach/Job Developer: Savage Jacob MD GFR,non Amer 46 mL/min Low >60 [facility] Comment on above: Performed By: #### C DP, PFA, CP, GLYHGB #### [address] [address] Job Coach/Job Developer: Savage Jacob MD Glucose [Mass/Vol] 157 mg/dL High 70-99 [facility] Comment on above: Performed By: #### C DP, PFA, CP, GLYHGB #### [address] [address] Job Coach/Job Developer: Savage Jacob MD Potassium [Moles/Vol] 3.6 mmol/L Low 3.7-5.3 [facility] Comment on above: Result Comment: SPEC IMEN SLIGHTLY HEMOLYZED, RESULTS MAY BE ADVERSELY AFFECTED. Performed By: #### C DP, PFA, CP, GLYHGB #### [address] [address] Job Coach/Job Developer: Savage Jacob MD Sodium [Moles/Vol] 153 mmol/L High 135-144 [facility] Comment on above: Performed By: #### C DP, PFA, CP, GLYHGB #### [address] [address] Job Coach/Job Developer: Savage Jacob MD Urea nitrogen [Mass/Vol] 16 mg/dL Normal 8-23 [facility] Comment on above: Performed By: #### C DP, PFA, CP, GLYHGB #### [address] [address] Job Coach/Job Developer: Savage Jacob MD Bl Gas,[place] 02-2 020 HbCO 0.8 % Normal 0-5.0 [facility] Comment on above: Performed By: #### C DP, PFA, CP, GLYHGB #### [address] [address] Job Coach/Job Developer: Savage Jacob MD Hemoglobin (Bld) [Mass/Vol] 12.6 g/dL Normal 12.0-18.0 [facility] Comment on above: Performed By: #### C DP, PFA, CP, GLYHGB #### [address] [address] Job Coach/Job Developer: Savage Jacob MD MetHb 0.8 % Normal 0.0-1.5 [facility] Comment on above: Performed By: #### C DP, PFA, CP, GLYHGB #### [address] [address] Job Coach/Job Developer: Savage Jacob MD O2 Content 11 vol % Normal 6-15 [facility] Comment on above: Performed By: #### C DP, PFA, CP, GLYHGB #### [address] [address] Job Coach/Job Developer: Savage Jacob MD Oxygen saturation in Blood 65.6 % Normal 60-80 [facility] Comment on above: Performed By: #### C DP, PFA, CP, GLYHGB #### [address] [address] Job Coach/Job Developer: Savage Jacob MD Oxygen Status 40 Normal [facility] Comment on above: Performed By: #### C DP, PFA, CP, GLYHGB #### [address] [address] Job Coach/Job Developer: Savage Jacob MD CALCIUM, IONIC (POC)on 07-04 POC Ionized Calcium 1.19 mmol/L 1.15 - 1 .33 mmol/L [place] POC Ionized Calcium 1.23 mmol/L 1.15 - 1 .33 mmol/L [place] POC Ionized Calcium 1.23 mmol/L 1.15 - 1 .33 mmol/L [place] CALCIUM, IONIZEDon 0 Calcium, Ion 1.26 mmol/L 1.13 - 1.33 mmol/L [place] Calcium, Ion 1.16 mmol/L 1.13 - 1.33 mmol/L [facility], [place] CBCon 07-04-2019 Erythrocyte distribution width (RBC) [Ratio] 15.3 % High 11.8-14.4 [facility] Comment on above: Performed By: #### P T, PTT #### [address] [address] Job Coach/Job Developer: Savage Jacob MD Hematocrit (Bld) [Volume fraction] 26.4 % Low 36.3-47.1 [facility] Comment on above: Performed By: #### P T, PTT #### [address] [address] Job Coach/Job Developer: Savage Jacob MD Hemoglobin (Bld) [Mass/Vol] 9.1 g/dL Low 11.9-15.1 [facility] Comment on above: Performed By: #### P T, PTT #### [facility] [employer] [address] [place] [address] Job Coach/Job Developer: Savage Jacob MD MCH (RBC) [Entitic mass] 29.0 pg Normal 25.2-33.5 [facility] Comment on above: Performed By: #### P T, PTT #### [facility] [employer] [address] [place] [address] Job Coach/Job Developer: Savage Jacob MD MCHC (RBC) [Mass/Vol] 34.5 g/dL Normal 28.4-34.8 [facility] Comment on above: Performed By: #### P T, PTT #### [address] [address] Job Coach/Job Developer: Savage Jacob MD MCV (RBC) [Entitic vol] 84.1 fL Normal 82.6-102.9 [facility] Comment on above: Performed By: #### P T, PTT #### [address] [address] Job Coach/Job Developer: Savage Jacob MD NRBC Automated 0.0 per 100 WBC Normal 0.0 [facility] Comment on above: Performed By: #### P T, PTT #### [address] [id number] Job Coach/Job Developer: Savage Jacob MD Platelet mean volume (Bld) [Entitic vol] 9.4 fL Normal 8.1-13.5 [facility] Comment on above: Performed By: #### P T, PTT #### [facility] [employer] [address] [place] [id number] Job Coach/Job Developer: Savage Jacob MD RBC (Bld) [#/Vol] 3.14 10*6/uL Low 3.95-5.11 [facility] Comment on above: Performed By: #### P T, PTT #### [place] [address] Job Coach/Job Developer: Savage Jacob MD WBC (Bld) [#/Vol] 8.2 10*3/uL Normal 3.5-11.3 [facility] Comment on above: Performed By: #### P T, PTT #### [address] [address] Job Coach/Job Developer: Savage Jacob MD Erythrocyte distribution width (RBC) [Ratio] 15.3 % High 11.8 - 14.4 % [place] Hematocrit (Bld) [Volume fraction] 26.4 % Low 36.3 - 47.1 % [place] Hemoglobin (Bld) [Mass/Vol] 9.1 g/dL Low 11.9 - 15.1 g/dL [place] Interpretation and review of laboratory results Abnormal [place] MCH (RBC) [Entitic mass] 29.0 pg 25.2 - 33.5 pg [place] MCHC (RBC) [Mass/Vol] 34.5 g/dL 28.4 - 34.8 g/dL [place] MCV (RBC) [Entitic vol] 84.1 fL 82.6 - 102.9 fL [place] Platelet mean volume (Bld) [Entitic vol] 9.4 fL 8.1 - 13.5 fL [place] Platelets (Bld) [#/Vol] 87 10*3/uL Low [place] RBC (Bld) [#/Vol] 3.14 10*6/uL Low 3.95 - 5.1 1 m/uL [place] WBC (Bld) [#/Vol] 0.0 10*3/uL 0.0 per 10 0 WBC [place] WBC (Bld) [#/Vol] 8.2 10*3/uL [place] Erythrocyte distribution width (RBC) [Ratio] 14.7 % High 11.8-14.4 [facility] Comment on above: Performed By: #### C DP, PFA, CP, GLYHGB #### [facility] [employer] [address] [place] [address] Job Coach/Job Developer: Savage Jacob MD Hematocrit (Bld) [Volume fraction] 28.0 % Low 36.3-47.1 [facility] Comment on above: Performed By: #### C DP, PFA, CP, GLYHGB #### [facility] [employer] [address] [place], [place] [phone] Job Coach/Job Developer: Savage Jacob MD Hemoglobin (Bld) [Mass/Vol] 9.5 g/dL Low 11.9-15.1 [facility] Comment on above: Performed By: #### C DP, PFA, CP, GLYHGB #### [facility] [employer] [address] [place], [place] [phone] Job Coach/Job Developer: Savage Jacob MD MCH (RBC) [Entitic mass] 28.5 pg Normal 25.2-33.5 [facility] Comment on above: Performed By: #### C DP, PFA, CP, GLYHGB #### [facility] [employer] [address] [place] [address] Job Coach/Job Developer: Savage Jacob MD MCHC (RBC) [Mass/Vol] 33.9 g/dL Normal 28.4-34.8 [facility] Comment on above: Performed By: #### C DP, PFA, CP, GLYHGB #### [address] [address] Job Coach/Job Developer: Savage Jacbo MD MCV (RBC) [Entitic vol] 84.1 fL Normal 82.6-102.9 [facility] Comment on above: Performed By: #### C DP, PFA, CP, GLYHGB #### [place] [address] Job Coach/Job Developer: Savage Jacob MD NRBC Automated 0.0 per 100 WBC Normal 0.0 [facility] Comment on above: Performed By: #### C DP, PFA, CP, GLYHGB #### [place] [address] Job Coach/Job Developer: Savage Jacob MD Platelet mean volume (Bld) [Entitic vol] 9.3 fL Normal 8.1-13.5 [facility] Comment on above: Performed By: #### C DP, PFA, CP, GLYHGB #### [address] [address] Job Coach/Job Developer: Savage Jacob MD Platelets (Bld) [#/Vol] 51 10*3/uL Low 138-453 [facility] Comment on above: Performed By: #### C DP, PFA, CP, GLYHGB #### [address] [address] Job Coach/Job Developer: Savage Jacob MD RBC (Bld) [#/Vol] 3.33 10*6/uL Low 3.95-5.11 [facility] Comment on above: Performed By: #### C DP, PFA, CP, GLYHGB #### [facility] [employer] [address] [place], [place] [phone] Job Coach/Job Developer: Savage Jacob MD WBC (Bld) [#/Vol] 8.8 10*3/uL Normal 3.5-11.3 [facility] Comment on above: Performed By: #### C DP, PFA, CP, GLYHGB #### [facility] [address] [place], [place] [phone] Job Coach/Job Developer: Savage Jacob MD Erythrocyte distribution width (RBC) [Ratio] 14.7 % High 11.8 - 14.4 % [place] Hematocrit (Bld) [Volume fraction] 28.0 % Low 36.3 - 47.1 % [place] Hemoglobin (Bld) [Mass/Vol] 9.5 g/dL Low 11.9 - 15.1 g/dL [place] Interpretation and review of laboratory results Abnormal [place] MCH (RBC) [Entitic mass] 28.5 pg 25.2 - 33.5 pg [place] MCHC (RBC) [Mass/Vol] 33.9 g/dL 28.4 - 34.8 g/dL [place] MCV (RBC) [Entitic vol] 84.1 fL 82.6 - 102.9 fL [place] Platelet mean volume (Bld) [Entitic vol] 9.3 fL 8.1 - 13.5 fL [place] Platelets (Bld) [#/Vol] 51 10*3/uL Low [place] RBC (Bld) [#/Vol] 3.33 10*6/uL Low 3.95 - 5.1 1 m/uL [place] WBC (Bld) [#/Vol] 8.8 10*3/uL [place] WBC (Bld) [#/Vol] 0.0 10*3/uL 0.0 per 10 0 WBC [place] CBC with Diffon 07-04-2019 Abs. Basophil 0.06 k/uL Normal 0.00-0.20 [facility] Comment on above: Performed By: #### C DP, PFA, CP, GLYHGB #### [place] [address] Job Coach/Job Developer: Savage Jacob MD Abs.Imm.Granulocyte 0.21 k/uL Normal 0.00-0.30 [facility] Comment on above: Performed By: #### C DP, PFA, CP, GLYHGB #### [place] [address] Job Coach/Job Developer: Savage Jacob MD Abs.Neutrophil (Seg) 14.05 k/uL High 1.50-8.10 [facility] Comment on above: Performed By: #### C DP, PFA, CP, GLYHGB #### [place] [address] Job Coach/Job Developer: Savage Jacob MD Basophils/100 WBC (Bld) 0 % Normal 0-2 [facility] Comment on above: Performed By: #### C DP, PFA, CP, GLYHGB #### [place] [address] Job Coach/Job Developer: Savage Jacob MD Eosinophils (Bld) [#/Vol] 0.14 10*3/uL Normal 0.00-0.44 [facility] Comment on above: Performed By: #### C DP, PFA, CP, GLYHGB #### [place] [address] Job Coach/Job Developer: Savage Jacob MD Eosinophils/100 WBC (Bld) 1 % Normal 1-4 [facility] Comment on above: Performed By: #### C DP, PFA, CP, GLYHGB #### [place] [address] Job Coach/Job Developer: Savage Jacob MD Erythrocyte distribution width (RBC) [Ratio] 14.5 % High 11.8-14.4 [facility] Comment on above: Performed By: #### C DP, PFA, CP, GLYHGB #### [address] [address] Job Coach/Job Developer: Savage Jacob MD Hematocrit (Bld) [Volume fraction] 37.0 % Normal 36.3-47.1 [facility] Comment on above: Performed By: #### C DP, PFA, CP, GLYHGB #### [address] [address] Job Coach/Job Developer: Savage Jacob MD Hemoglobin (Bld) [Mass/Vol] 12.8 g/dL Normal 11.9-15.1 [facility] Comment on above: Performed By: #### C DP, PFA, CP, GLYHGB #### [address] [address] Job Coach/Job Developer: Savage Jacob MD Immature granulocytes (Bld) [#/Vol] 1 % High 0 [facility] Comment on above: Performed By: #### C DP, PFA, CP, GLYHGB #### [address] [address] Job Coach/Job Developer: Savage Jacob MD Lymphocytes (Bld) [#/Vol] 1.73 10*3/uL Normal 1.10-3.70 [facility] Comment on above: Performed By: #### C DP, PFA, CP, GLYHGB #### [address] [address] Job Coach/Job Developer: Savage Jacob MD Lymphocytes/100 WBC (Bld) 10 % Low 24-43 [facility] Comment on above: Performed By: #### C DP, PFA, CP, GLYHGB #### [address] [address] Job Coach/Job Developer: Savage Jacob MD MCH (RBC) [Entitic mass] 29.2 pg Normal 25.2-33.5 [facility] Comment on above: Performed By: #### C DP, PFA, CP, GLYHGB #### [address] [address] Job Coach/Job Developer: Savage Jacob MD MCHC (RBC) [Mass/Vol] 34.6 g/dL Normal 28.4-34.8 [facility] Comment on above: Performed By: #### C DP, PFA, CP, GLYHGB #### [address] [address] Job Coach/Job Developer: Savage Jacob MD MCV (RBC) [Entitic vol] 84.3 fL Normal 82.6-102.9 [facility] Comment on above: Performed By: #### C DP, PFA, CP, GLYHGB #### [place] [address] Job Coach/Job Developer: Savage Jacob MD Monocytes (Bld) [#/Vol] 1.07 10*3/uL Normal 0.10-1.20 [facility] Comment on above: Performed By: #### C DP, PFA, CP, GLYHGB #### [address] [address] Job Coach/Job Developer: Savage Jacob MD Monocytes/100 WBC (Bld) 6 % Normal 3-12 [facility] Comment on above: Performed By: #### C DP, PFA, CP, GLYHGB #### [address] [address] Job Coach/Job Developer: Savage Jacob MD Neutrophil (Seg) 82 % High 36-65 [facility] Comment on above: Performed By: #### C DP, PFA, CP, GLYHGB #### [address] [address] Job Coach/Job Developer: Savage Jacob MD NRBC Automated 0.0 per 100 WBC Normal 0.0 [facility] Comment on above: Performed By: #### C DP, PFA, CP, GLYHGB #### [address] [address] Job Coach/Job Developer: Savage Jacob MD Platelet mean volume (Bld) [Entitic vol] 8.9 fL Normal 8.1-13.5 [facility] Comment on above: Performed By: #### C DP, PFA, CP, GLYHGB #### [address] [address] Job Coach/Job Developer: Savage Jacob MD Platelets (Bld) [#/Vol] 75 10*3/uL Low 138-453 [facility] Comment on above: Performed By: #### C DP, PFA, CP, GLYHGB #### [address] [address] Job Coach/Job Developer: Savage Jacob MD RBC (Bld) [#/Vol] 4.39 10*6/uL Normal 3.95-5.11 [facility] Comment on above: Performed By: #### C DP, PFA, CP, GLYHGB #### [address] [address] Job Coach/Job Developer: Savage Jacob MD RBC morphology finding Nom (Bld) ANISOCYTOSIS PRESENT Normal [facility] Comment on above: Performed By: #### C DP, PFA, CP, GLYHGB #### [address] [address] Job Coach/Job Developer: Savage Jacob MD WBC (Bld) [#/Vol] 17.3 10*3/uL High 3.5-11.3 [facility] Comment on above: Performed By: #### C DP, PFA, CP, GLYHGB #### [address] [phone] Job Coach/Job Developer: Savage Jacob MD Auto Diff Performed NOT REPORTED Normal [facility] Comment on above: Performed By: #### C DP, PFA, CP, GLYHGB #### [facility] [employer] [address] [place] [address] Job Coach/Job Developer: Savage Jacob MD Platelets (Bld) [#/Vol] NOT REPORTED Normal [facility] Comment on above: Performed By: #### C DP, PFA, CP, GLYHGB #### [facility] [address] [place] [address] Job Coach/Job Developer: Savage Jacob MD WBC Morphology NOT REPORTED Normal [facility] Comment on above: Performed By: #### C DP, PFA, CP, GLYHGB #### [facility] [employer] [address] [place] [address] Job Coach/Job Developer: Savage Jacob MD CHLORIDE (POC)on 07-04-2019 POC Chloride 114 mmol/L High 98 - 107 mmol/L [place] POC Chloride 114 mmol/L High 98 - 107 mmol/L [place] POC Chloride 113 mmol/L High 98 - 107 mmol/L [place] Calcium, Ionicon 07-04-2019 Calcium [Mass/Vol] 1.26 mmol/L Normal 1.13-1.33 [facility] Comment on above: Performed By: #### P T, PTT #### [facility] [employer] [address] [place] [address] Job Coach/Job Developer: Savage Jacob MD Calcium [Mass/Vol] 1.16 mmol/L Normal 1.13-1.33 [facility] Comment on above: Performed By: #### P T, PTT #### [facility] [employer] [address] [place] [address] Job Coach/Job Developer: Savage Jacob MD Calcium [Mass/Vol] 1.14 mmol/L Normal 1.13-1.33 [facility] Comment on above: Performed By: #### C DP, PFA, CP, GLYHGB #### [facility] [address] [place], [place] [phone] Job Coach/Job Developer: Savage Jacob MD Calcium [Mass/Vol] 1.32 mmol/L Normal 1.13-1.33 [facility] Comment on above: Performed By: #### C DP, PFA, CP, GLYHGB #### [facility] [address] [place], [place] [phone] Job Coach/Job Developer: Savage Jacob MD Creatinine W/GFR Point of Ca reon 07-04-2019 GFR Comment 43 mL/min Low >60 [place] GFR Comment [place] GFR Non- 35 mL/min Low >60 [place] POC Creatinine 1.46 mg/dL High 0.51 - 1.19 mg/dL [place] GFR Comment [place] GFR Comment 50 mL/min Low >60 [place] GFR Non- 41 mL/min Low >60 [place] POC Creatinine 1.27 mg/dL High 0.51 - 1.19 mg/dL [place] GFR Comment [place] GFR Comment 52 mL/min Low >60 [place] GFR Non- 43 mL/min Low >60 [place] POC Creatinine 1.23 mg/dL High 0.51 - 1.19 mg/dL [place] Cult,Urineon 07-04-2019 Cult,Urine Specimen Description .CATHETERIZED URINE Special Requests NOT REPORTED Culture NO GROWTH Report Status FINAL 07/04/2019 Normal [facility] Comment on above: Performed By: #### P T, PTT #### [facility] [address] [place], [place] [phone] Job Coach/Job Developer: Savage Jacob MD EKG 12 Leadon 07-04-2019 Atrial Rate 75 BPM [place] P [place] 66 degrees [place] P-R Interval 180 ms [facility] [place] Q-T Interval 548 ms [facility] [place] QRS Duration 136 ms [facility] [place] QTc Calculation (Bazett) 611 ms [facility] R [place] -3 degrees [facility] T [place] 114 degrees [facility] Ventricular Rate 75 BPM [facility] [facility] [facility] Atrial Rate 80 BPM [facility] P [place] 64 degrees [facility] P-R Interval 174 ms [facility] [place] Q-T Interval 524 ms [facility] [place] QRS Duration 132 ms [facility] [place] QTc Calculation (Bazett) 604 ms [facility] R [place] 5 degrees [facility] T [place] 103 degrees [facility] Ventricular Rate 80 BPM [facility] EKG 12 leadon 07-04-2019 Atrial Rate 72 BPM [facility] P [place] 54 degrees [facility] P-R Interval 176 ms [facility] [place] Q-T Interval 500 ms [facility] [place] QRS Duration 124 ms [facility] [place] QTc Calculation (Bazett) 547 ms [facility] R [place] -59 degrees [facility] T [place] 98 degrees [facility] Ventricular Rate 72 BPM [facility] FFP, Transfuseon 07-04-2019 FFP, Transfuse Unit Number [id number] Blood Component Type Fresh Plasma Unit Division 00 Status of Unit TRANSFUSED Transfusion Status OK TO TRANSFUSE Normal [facility] Comment on above: Performed By: #### P T, PTT #### [facility] [address] [place] [address] Job Coach/Job Developer: Savage Jacob MD FFP, Transfuse Unit Number [id number] Blood Component Type Fresh Plasma Unit Division 00 Status of Unit TRANSFUSED Transfusion Status OK TO TRANSFUSE [facility] Comment on above: Performed By: #### P T, PTT #### [facility] [address] [place] [address] Job Coach/Job Developer: Savage Jacob MD Fibrinogenon 07-04-2019 Fibrinogen <80 Critically low 140-420 [facility] Comment on above: Performed By: #### C DP, PFA, CP, GLYHGB #### [facility] [place] [facility] [place] [address] Job Coach/Job Developer: Savage Jacob MD HEMOGLOBIN AND HEMATOCRIT, B [facility] 07-04-2019 Hematocrit (Bld) [Volume fraction] 24.5 % Low 36.3 - 47.1 % [place] Hemoglobin (Bld) [Mass/Vol] 8.3 g/dL Low 11.9 - 15.1 g/dL [place] Interpretation and review of laboratory results Abnormal [place] Hematologyon 07-04-2019 Blood product type Nom (BPU) Fresh Plasma [place] Hemoglobin and hematocrit, b [facility] 07-04-2019 POC Hematocrit 24 % Low 36 - 46 % [place] POC Hemoglobin 8.1 g/dL Low 12 - 16 g/dL [facility] [place] Hematocrit 25 % Low 36 - 46 % [place] POC Hemoglobin 8.5 g/dL Low 12 - 16 g/dL [facility] alth- [place] POC Hematocrit 25 % Low 36 - 46 % [place] POC Hemoglobin 8.5 g/dL Low 12 - 16 g/dL [place] Hgb/Hcton 07-04-2019 Hematocrit (Bld) [Volume fraction] 24.5 % Low 36.3-47.1 [facility] Comment on above: Performed By: #### P T, PTT #### [facility] [employer] [address] [place] [address] Job Coach/Job Developer: Savage Jacob MD Hemoglobin (Bld) [Mass/Vol] 8.3 g/dL Low 11.9-15.1 [facility] Comment on above: Performed By: #### P T, PTT #### [facility] [place], [place] [id number] Job Coach/Job Developer: Savage Jacob MD K (Potassium)on 07-04-2019 Potassium [Moles/Vol] 4.4 mmol/L Normal 3.7-5.3 [facility] Comment on above: Performed By: #### P T, PTT #### [employer] [address] [place] [id number] Job Coach/Job Developer: Savage Jacob MD LACTIC ACID, WHOLE BLOODon 0 07-04-2019 Lactic Acid, Whole Blood 1.8 mmol/L 0.7 - 2.1 mmol/L [place] Lactic Acid, Whole Blood 2.1 mmol/L 0.7 - 2.1 mmol/L [place] Lactic Acid, POCon 0 POC Lactic Acid 1.70 mmol/L High 0.56 - 1.39 mmol/L [place] POC Lactic Acid 3.63 mmol/L High 0.56 - 1.39 mmol/L [place] POC Lactic Acid 5.10 mmol/L High 0.56 - 1.39 mmol/L [place] Lactic Acid,Whole Blon 07-04 Lactic Acid,Whole Bl 1.8 mmol/L Normal 0.7-2.1 [facility] Comment on above: Performed By: #### P T, PTT #### [employer] [address] [place] [phone] Job Coach/Job Developer: Savage Jacob MD Lactic Acid,Whole Bl 2.1 mmol/L Normal 0.7-2.1 [facility] Comment on above: Performed By: #### P T, PTT #### [employer] [address] [place] [address] Job Coach/Job Developer: Savage Jacob MD Lactic Acid,Whole Bl 7.8 mmol/L High 0.7-2.1 [facility] Comment on above: Performed By: #### C DP, PFA, CP, GLYHGB #### [employer] [address] [place] [address] Job Coach/Job Developer: Savage Jacob MD Liver Profileon 07-04-2019 Albumin [Mass/Vol] 3.2 g/dL Low 3.5-5.2 [facility] Comment on above: Performed By: #### C DP, PFA, CP, GLYHGB #### [facility] [employer] [address] [place] [address] Job Coach/Job Developer: Savage Jacob MD Albumin/Globulin [Mass ratio] 2.9 {ratio} High 1.0-2.5 [facility] Comment on above: Performed By: #### C DP, PFA, CP, GLYHGB #### [facility] [employer] [address] [place] [address]87 Job Coach/Job Developer: Savage Jacob MD Alkaline Phos 20 U/L Low 35-104 [facility] Comment on above: Performed By: #### C DP, PFA, CP, GLYHGB #### [facility] [employer] [address] [place] [address] Job Coach/Job Developer: Savage Jacob MD ALT [Catalytic activity/Vol] 161 U/L High 5-33 [facility] Comment on above: Performed By: #### C DP, PFA, CP, GLYHGB #### [facility] [employer] [address] [place] [phone] Job Coach/Job Developer: Savage Jacob MD AST [Catalytic activity/Vol] 195 U/L High <32 [facility] Comment on above: Performed By: #### C DP, PFA, CP, GLYHGB #### [facility] [employer] [address] [place] [address] Job Coach/Job Developer: Savage Jacob MD Bilirubin Ql (U) 0.70 mg/dL Normal 0.3-1.2 [facility] Comment on above: Performed By: #### C DP, PFA, CP, GLYHGB #### [facility] [address] [place] [address] Job Coach/Job Developer: Savage Jacob MD Bilirubin, Indirect 0.52 mg/dL Normal 0.00-1.00 [facility] Comment on above: Performed By: #### C DP, PFA, CP, GLYHGB #### [facility] [address] [place] [address] Job Coach/Job Developer: Savage Jacob MD Bilirubin.direct [Mass/Vol] 0.18 mg/dL Normal <0.31 [facility] Comment on above: Performed By: #### C DP, PFA, CP, GLYHGB #### [facility] [employer] [address] [place] [address] [phone] Job Coach/Job Developer: Savage Jacob MD Protein [Mass/Vol] 4.3 g/dL Low 6.4-8.3 [facility] Comment on above: Performed By: #### C DP, PFA, CP, GLYHGB #### [facility] [employer] [address] [place] [address] 32864 Job Coach/Job Developer: Savage Jacob MD Globulin (S) [Mass/Vol] NOT REPORTED Normal 1.5-3.8 [facility] Comment on above: Performed By: #### C DP, PFA, CP, GLYHGB #### [facility] [address] [place] [address] Job Coach/Job Developer: Savage Jacob MD MAGNESIUMon 07-04-2019 Magnesium [Mass/Vol] 2.3 mg/dL 1.6 - 2 .6 mg/dL [place] Magnesium [Mass/Vol] 2.4 mg/dL 1.6 - 2 .6 mg/dL [place] Magnesium [Mass/Vol] 2.3 mg/dL 1.6 - 2 .6 mg/dL [place] Magnesiumon 07-04-2019 Magnesium [Mass/Vol] 2.3 mg/dL Normal 1.6-2.6 [facility] Comment on above: Performed By: #### U DENIZ Sanabria #### [facility] [address] [place] [address] Job Coach/Job Developer: Savage Jacob MD Magnesium [Mass/Vol] 2.4 mg/dL Normal 1.6-2.6 [facility] Comment on above: Performed By: #### P T, PTT #### [facility] [address] [place] [address] Job Coach/Job Developer: Savage Jacob MD Magnesium [Mass/Vol] 2.3 mg/dL Normal 1.6-2.6 [facility] Comment on above: Performed By: #### P T, PTT #### [facility] [employer] [address] [place] [address]83 Job Coach/Job Developer: Savage Jacob MD Magnesium [Mass/Vol] 2.2 mg/dL Normal 1.6-2.6 [facility] Comment on above: Performed By: #### P T, PTT #### [facility] [employer] [address] [place] [address] 8[address]65 Job Coach/Job Developer: Savage Jacob MD Magnesium [Mass/Vol] 2.2 mg/dL 1.6 - 2 .6 mg/dL [place] Magnesium [Mass/Vol] 2.5 mg/dL Normal 1.6-2.6 [facility] Comment on above: Performed By: #### C DP, PFA, CP, GLYHGB #### [facility] [employer] [address] [place] [address] 37757 Job Coach/Job Developer: Savage Jacob MD Magnesium [Mass/Vol] 2.6 mg/dL Normal 1.6-2.6 [facility] Comment on above: Performed By: #### C DP, PFA, CP, GLYHGB #### [facility] [employer] [address] [place] [address] 40800 Job Coach/Job Developer: Savage Jacob MD OPEN HEART COAGon 07-04-2019 aPTT Coag (Bld) [Time] 37.7 s [place] Fibrinogen 151 mg/dL 140 - 420 mg/dL [place] INR Coag (PPP) [Relative time] 1.2 {INR} [place] Interpretation and review of laboratory results Abnormal [place] Platelets (Bld) [#/Vol] 80 10*3/uL Low [place] PT Coag (PPP) [Time] 12.9 s [place] aPTT Coag (Bld) [Time] 50.4 s High [place] Fibrinogen 125 mg/dL Low 140 - 420 mg/dL [place] INR Coag (PPP) [Relative time] 1.3 {INR} [place] Interpretation and review of laboratory results Abnormal [place] Platelets (Bld) [#/Vol] 87 10*3/uL Low [place] PT Coag (PPP) [Time] 13.7 s High [place] aPTT Coag (Bld) [Time] 31.7 s High [place] Fibrinogen 99 mg/dL Low 140 - 420 mg/dL [place] INR Coag (PPP) [Relative time] 1.4 {INR} [place] Interpretation and review of laboratory results Abnormal [place] Platelets (Bld) [#/Vol] 68 10*3/uL Low [place] PT Coag (PPP) [Time] 14.7 s High [place] Open Heart Coagon 07-04-2019 aPTT Coag (Bld) [Time] 37.7 s High 20.5-30.5 [facility] Comment on above: Performed By: #### P T, PTT #### [employer] [address] [place] [id number] Job Coach/Job Developer: Savage Jacob MD Fibrinogen 151 mg/dL Normal 140-420 [facility] Comment on above: Performed By: #### P T, PTT #### [employer] [address] [place] [address] Job Coach/Job Developer: Savage Jacob MD INR Coag (PPP) [Relative time] 1.2 {INR} Normal [facility] Comment on above: Result Comment: Therapeutic Range: Moderate Anticoagulant Intensity: INR = 2.0-3.0 High Anticoagulant Intensity: INR = 2.5-3.5 Performed By: #### P T, PTT #### [address] [address] Job Coach/Job Developer: Savage Jacob MD PT Coag (PPP) [Time] 12.9 s High 9.0-12.0 [facility] Comment on above: Performed By: #### P T, PTT #### [facility] [employer] [address] [place] [address] Job Coach/Job Developer: Savage Jacob MD Platelets (Bld) [#/Vol] 80 10*3/uL Low 138-453 [facility] Comment on above: Performed By: #### P T, PTT #### [facility] [employer] [address] [place] [address] Job Coach/Job Developer: Savage Jacob MD aPTT Coag (Bld) [Time] 50.4 s High 20.5-30.5 [facility] Comment on above: Performed By: #### P T, PTT #### [address] [address] Job Coach/Job Developer: Savage Jacob MD Fibrinogen 125 mg/dL Low 140-420 [facility] Comment on above: Performed By: #### P T, PTT #### [facility] [employer] [address] [place] [address] Job Coach/Job Developer: Savage Jacob MD INR Coag (PPP) [Relative time] 1.3 {INR} Normal [facility] Comment on above: Result Comment: Therapeutic Range: Moderate Anticoagulant Intensity: INR = 2.0-3.0 High Anticoagulant Intensity: INR = 2.5-3.5 Performed By: #### P T, PTT #### [address] [address] Job Coach/Job Developer: Savage Jacob MD PT Coag (PPP) [Time] 13.7 s High 9.0-12.0 [facility] Comment on above: Performed By: #### P T, PTT #### [address] [address] Job Coach/Job Developer: Savage Jacob MD Platelets (Bld) [#/Vol] 87 10*3/uL Low 138-453 [facility] Comment on above: Performed By: #### P T, PTT #### [address] [address] Job Coach/Job Developer: Savage Jacob MD aPTT Coag (Bld) [Time] 31.7 s High 20.5-30.5 [facility] Comment on above: Performed By: #### C DP, PFA, CP, GLYHGB #### [address] [address] Job Coach/Job Developer: Savage Jacob MD Fibrinogen 99 mg/dL Low 140-420 [facility] Comment on above: Performed By: #### C DP, PFA, CP, GLYHGB #### [address] [address] Job Coach/Job Developer: Savage Jacob MD INR Coag (PPP) [Relative time] 1.4 {INR} Normal [facility] Comment on above: Result Comment: Therapeutic Range: Moderate Anticoagulant Intensity: INR = 2.0-3.0 High Anticoagulant Intensity: INR = 2.5-3.5 Performed By: #### C DP, PFA, CP, GLYHGB #### [address] [address] Job Coach/Job Developer: Savage Jacob MD PT Coag (PPP) [Time] 14.7 s High 9.0-12.0 [facility] Comment on above: Performed By: #### C DP, PFA, CP, GLYHGB #### [facility] [employer] [address] [place] [address] Job Coach/Job Developer: Savage Jacob MD Platelets (Bld) [#/Vol] 68 10*3/uL Low 138-453 [facility] Comment on above: Performed By: #### C DP, PFA, CP, GLYHGB #### [facility] [employer] [address] [place] [address] Job Coach/Job Developer: Savage Jacob MD Fibrinogen <80 Critically low 140-420 [facility] Comment on above: Performed By: #### C DP, PFA, CP, GLYHGB #### [facility] [employer] [address] [place] [address] Job Coach/Job Developer: Savage Jacob MD INR Coag (PPP) [Relative time] 3.2 {INR} Normal [facility] Comment on above: Result Comment: Therapeutic Range: Moderate Anticoagulant Intensity: INR = 2.0-3.0 High Anticoagulant Intensity: INR = 2.5-3.5 Performed By: #### C DP, PFA, CP, GLYHGB #### [facility] [employer] [address] [place] [address] Job Coach/Job Developer: Savage Jacob MD PT Coag (PPP) [Time] 31.0 s High 9.0-12.0 [facility] Comment on above: Performed By: #### C DP, PFA, CP, GLYHGB #### [facility] [employer] [address] [place] [address] Job Coach/Job Developer: Savage Jacob MD aPTT Coag (Bld) [Time] 85.9 s Critically high 20.5-30. 5 [facility] Comment on above: Performed By: #### C DP, PFA, CP, GLYHGB #### [facility] [employer] [address] [place] [address] Job Coach/Job Developer: Savage Jacob MD Otheron 07-04-2019 [place] Interpretation and review of laboratory results Abnormal [place] TEG Comment NOT REPORTED [place] Interpretation and review of laboratory results Abnormal [place] TEG Comment NOT REPORTED [place] TEG Comment NOT REPORTED [place] TEG Comment NOT REPORTED [place] Interpretation and review of laboratory results Abnormal [place] Dispense Status TRANSFUSED [facility] [place] Transfusion Status OK TO TRANSFUSE M [place], [place] Unit Divison 0 [place] Interpretation and review of laboratory results Abnormal [place] Interpretation and review of laboratory results Abnormal [place] POC Glucose Fingerstickon Interpretation and review of laboratory results Abnormal [place] POC Glucose 106 mg/dL High 65 - 105 mg/dL [place] POC Glucose 83 mg/dL 65 - 105 mg/dL [place] Interpretation and review of laboratory results Abnormal [place] POC Glucose 112 mg/dL High 65 - 105 mg/dL [place] Interpretation and review of laboratory results Abnormal [place] POC Glucose 137 mg/dL High 65 - 105 mg/dL [place] POC Glucose 133 mg/dL High 65 - 105 mg/dL [place] Interpretation and review of laboratory results Abnormal [place] POC Glucose 159 mg/dL High 65 - 105 mg/dL [place] POC Kaolin TEGon 07-04-2019 POC Angle TEG NOT REPORTED 59 - 74 deg [place] POC EPL TEG NOT REPORTED 0 - 15 % [place] POC Kinetics TEG NOT REPORTED 1 - 3 min [place] POC LY30(Lysis) TEG NOT REPORTED 0 - 8 % [place] P[place] MA(Max Clot) TEG NOT REPORTED 55 - 74 mm [place] POC Reaction Time TEG 19.6 min High 4 - 9 min [place] POC Angle TEG NOT REPORTED 59 - 74 deg [facility] [place]- [place] POC EPL TEG NOT REPORTED 0 - 15 % [facility] [place] Kinetics TEG NOT REPORTED 1 - 3 min [place] POC LY30(Lysis) TEG NOT REPORTED 0 - 8 % [place] POC MA(Max Clot) TEG NOT REPORTED 55 - 74 mm [place] POC Reaction Time TEG 28.0 min High 4 - 9 min [place] Interpretation and review of laboratory results Abnormal [place] POC Angle TEG 49.1 deg Low 59 - 74 deg [place], [place] POC EPL TEG NOT REPORTED 0 - 15 % [facility] [place] P[place] Kinetics TEG 3.5 min High 1 - 3 min [facility] [place] P[place] LY30(Lysis) TEG NOT REPORTED 0 - 8 % [place] POC MA(Max Clot) TEG 60.7 mm 55 - 74 mm [place] POC Reaction Time TEG 10.2 min High 4 - 9 min [place] Interpretation and review of laboratory results Abnormal [place] POC Angle TEG 59.9 deg 59 - 74 deg [place] POC EPL TEG 0.0 % 0 - 15 % [place] POC Kinetics TEG 2.3 min 1 - 3 min [place] POC LY30(Lysis) TEG 0.0 % 0 - 8 % [place] POC MA(Max Clot) TEG 70.6 mm 55 - 74 mm [place] POC Reaction Time TEG 11.4 min High 4 - 9 min [place] POC Kaolin TEG with Heparino n 07-04-2019 POC Angle TEG w Hep 16.1 deg Low 59 - 74 deg [place] POC EPL TEG W/HEP NOT REPORTED 0 - 15 % [place] POC Kinetics TEG w Hep 15.8 min High 1 - 3 min [place] POC LY30(Lysis) TEG w Hep NOT REPORTED 0 - 8 % [place] POC Max Clot TEG w Hep 24.5 mm Low 55 - 74 mm [place] POC Reaction Time TEG w Hep 14.2 min High 4 - 9 min [place] POC Angle TEG w Hep NOT REPORTED 59 - 74 deg [place] P[place] EPL TEG W/HEP NOT REPORTED 0 - 15 % [place] POC Kinetics TEG w Hep NOT REPORTED 1 - 3 min [place] POC LY30(Lysis) TEG w Hep NOT REPORTED 0 - 8 % [place] POC Max Clot TEG w Hep NOT REPORTED 55 - 74 mm [place] POC Reaction Time TEG w Hep 22.9 min High 4 - 9 min [place] POC Angle TEG w Hep 67.9 deg 59 - 74 deg [place] POC EPL TEG W/HEP NOT REPORTED 0 - 15 % [place] POC Kinetics TEG w Hep 1.6 min 1 - 3 min [place] POC LY30(Lysis) TEG w Hep NOT REPORTED 0 - 8 % [place] POC Max Clot TEG w Hep 60.7 mm 55 - 74 mm [place] POC Reaction Time TEG w Hep 7.6 min 4 - 9 min [place] POC Angle TEG w Hep 73.0 deg 59 - 74 deg [place] POC EPL TEG W/HEP 2.9 % 0 - 15 % [place] POC Kinetics TEG w Hep 1.2 min 1 - 3 min [place] POC LY30(Lysis) TEG w Hep 2.9 % 0 - 8 % [place] POC Max Clot TEG w Hep 73.9 mm 55 - 74 mm [place] POC Reaction Time TEG w Hep 7.0 min 4 - 9 min [place] POCT Glucoseon 07-04-2019 POC Glucose 105 mg/dL High 74 - 100 mg/dL [place] POC Glucose 148 mg/dL High 74 - 100 mg/dL [place] POC Glucose 129 mg/dL High 74 - 100 mg/dL [place] POTASSIUMon 07-04-2019 Potassium [Moles/Vol] 4.4 mmol/L 3.7 - 5.3 mmol/L [place] POTASSIUM (POC)on 07-04-2019 POC Potassium 3.9 mmol/L 3.5 - 4.5 mmol/L [place] POC Potassium 4.4 mmol/L 3.5 - 4.5 mmol/L [place] POC Potassium 3.6 mmol/L 3.5 - 4.5 mmol/L [place] PREPARE FRESH FROZEN PLASMA, 1 Unitson 07-04-2019 Unit Number [id number] [place], [place] Unit Number [id number] [place] PREPARE PLATELETS, 1 Product on 07-04-2019 Blood product type Nom (BPU) Leukocyte Reduced Irradiated Plateletpheresis [place] Unit Number [id number] [place], [place] PTon 07-04-2019 INR Coag (PPP) [Relative time] 1.4 {INR} Normal [facility] Comment on above: Result Comment: Therapeutic Range: Moderate Anticoagulant Intensity: INR = 2.0-3.0 High Anticoagulant Intensity: INR = 2.5-3.5 Performed By: #### C DP, PFA, CP, GLYHGB #### [facility] [employer] [address] [place] [address] Job Coach/Job Developer: Savage Jacob MD PT Coag (PPP) [Time] 14.7 s High 9.0-12.0 [facility] Comment on above: Performed By: #### C DP, PFA, CP, GLYHGB #### [facility] [address] [place], [place] [phone] Job Coach/Job Developer: Savage Jacob MD INR Coag (PPP) [Relative time] 1.7 {INR} Normal [facility] Comment on above: Result Comment: Therapeutic Range: Moderate Anticoagulant Intensity: INR = 2.0-3.0 High Anticoagulant Intensity: INR = 2.5-3.5 Performed By: #### C DP, PFA, CP, GLYHGB #### [facility] [employer] [address] [place], [place] [phone] Job Coach/Job Developer: Savage Jacob MD PT Coag (PPP) [Time] 17.0 s High 9.0-12.0 [facility] Comment on above: Performed By: #### C DP, PFA, CP, GLYHGB #### [facility] [employer] [address] [place] [address] [phone] Job Coach/Job Developer: Savage Jacob MD Platelets,Transfuseon 2019 Platelets,Transfuse Unit Number [id number] Blood Component Type LkIrPlt PAS Unit Division 00 Status of Unit TRANSFUSED Transfusion Status OK TO TRANSFUSE Normal [facility] Comment on above: Performed By: #### U A, UMICAO #### [facility] [employer] [address] [place] [address] [id number] Job Coach/Job Developer: Savage Jacob MD Platelets,Transfuse Unit Number [id number] Blood Component Type Leukocyte Reduced Irradiated Plateletpheresis Unit Division 00 Status of Unit TRANSFUSED Transfusion Status OK TO TRANSFUSE Normal [facility] Comment on above: Performed By: #### P T, PTT #### [facility] [employer] [address] [place] [id number] Job Coach/Job Developer: Savage Jacob MD Protime-INRon 07-04-2019 INR Coag (PPP) [Relative time] 1.4 {INR} [place] Interpretation and review of laboratory results Abnormal [place] PT Coag (PPP) [Time] 14.7 s High [place] SODIUM (POC)on 07-04-2019 POC Sodium 152 mmol/L High 138 - 146 mmol/L [place] POC Sodium 152 mmol/L High 138 - 146 mmol/L [place] POC Sodium 153 mmol/L High 138 - 146 mmol/L [place] Urine Cultureon 07-04-2019 Culture NO GROWTH [place] Special Requests NOT REPORTED [place] Specimen Description .CATHETERIZED URINE [place] XR CHEST PORTABLEon 07-04-19 20 XR CHEST PORTABLE EXAMINATION: ONE XRAY [...] body of the stomach. Right internal jugular [place]awn catheter appears unchanged in position in the [...] Morro Wheeler MD 07/04/19 Final result Normal [facility], [facility], [facility], [place] XR CHEST PORTABLE EXAMINATION: ONE XRAY VIEW [...] 3 cm above the janes. A right-sided [place]Shawn catheter terminates in the main pulmonary outflow [...] Ana Grace MD 07/04/19 Final result Normal [facility] [place] APTTon 07-03-2019 aPTT Coag (Bld) [Time] 26.4 s Normal 20.5-30.5 [facility] Comment on above: Performed By: #### C DP, PFA, CP, GLYHGB #### [facility] [address] [place] [address] Job Coach/Job Developer: Savage Jacob MD aPTT Coag (Bld) [Time] 26.4 s [place] Anion Gap (Calc) POCon 07-03 Anion gap [Moles/Vol] 15 mmol/L 7 - 16 mmol/L [place] Anion gap [Moles/Vol] 18 mmol/L High 7 - 16 mmol/L [place] Anion gap [Moles/Vol] 17 mmol/L High 7 - 16 mmol/L [place] Anion gap [Moles/Vol] 19 mmol/L High 7 - 16 mmol/L [place] Anion gap [Moles/Vol] 22 mmol/L High 7 - 16 mmol/L [place] Anion gap [Moles/Vol] 23 mmol/L High 7 - 16 mmol/L [place] Anion gap [Moles/Vol] 12 mmol/L 7 - 16 mmol/L [place] Arterial Blood Gas, POCon Graham Test NOT APPLICABLE [place] FIO2 40.0 [place] Mode PRVC [place] Negative Base Excess, Art 3 High [place] O2 Device/Flow/% Adult Ventilator [place] POC HCO3 22.5 mmol/L 21 - 28 mmol/L [place] POC O2 SAT 100 % High 94 - 98 % [place] POC pCO2 42.5 [place] POC pCO2 Temp NOT REPORTED mm Hg [place], [place] POC pH 7.332 Low [place] POC pH Temp NOT REPORTED [place] POC PO2 174.8 High [place] POC pO2 Temp NOT REPORTED mm Hg [place] Positive Base Excess, Art NOT REPORTED [place] Pt Temp NOT REPORTED [place] Sample Site Arterial Line [place] TCO2 (calc), Art 24 mmol/L 22 - 29 mmol/L [place] Graham Test NOT APPLICABLE [place] FIO2 40.0 [place] Mode PRVC [place] Negative Base Excess, Art 2 [place] O2 Device/Flow/% Adult Ventilator [place] POC HCO3 23.1 mmol/L 21 - 28 mmol/L [place] POC O2 SAT 99 % High 94 - 98 % [place] POC pCO2 41.9 [place] POC pCO2 Temp NOT REPORTED mm Hg [place] POC pH 7.350 [place] POC pH Temp NOT REPORTED [place] POC PO2 138.0 High [place] POC pO2 Temp NOT REPORTED mm Hg [place] Positive Base Excess, Art NOT REPORTED [place] Pt Temp NOT REPORTED [place] Sample Site Arterial Line [place] TCO2 (calc), Art 24 mmol/L 22 - 29 mmol/L [place] Graham Test NOT REPORTED [place] FIO2 NOT REPORTED [place] Mode NOT REPORTED [place] Negative Base Excess, Art NOT REPORTED [place] O2 Device/Flow/% NOT REPORTED [place] POC HCO3 26.0 mmol/L 21 - 28 mmol/L [place] POC O2 SAT 100 % High 94 - 98 % [place] POC pCO2 41.4 [place] POC pCO2 Temp NOT REPORTED mm Hg [facility], [place] POC pH 7.406 [place] POC pH Temp NOT REPORTED [place] POC PO2 407.9 High [place] POC pO2 Temp NOT REPORTED mm Hg [place] Positive Base Excess, Art 1 [place] Pt Temp NOT REPORTED [place] Sample Site NOT REPORTED [place] TCO2 (calc), Art 27 mmol/L 22 - 29 mmol/L [place] Graham Test NOT REPORTED [place] FIO2 NOT RE[place]ED [place] Mode NOT REPORTED [place] Negative Base Excess, Art 7 High [place] O2 Device/Flow/% NOT REPORTED [place] POC HCO3 19.0 mmol/L Low 21 - 28 mmol/L [place] POC O2 SAT 100 % High 94 - 98 % [place] POC pCO2 38.9 [place] POC pCO2 Temp NOT REPORTED mm Hg [place] POC pH 7.297 Low [place] POC pH Temp NOT REPORTED [place] POC PO2 334.2 High [place] POC pO2 Temp NOT REPORTED mm Hg [place] Positive Base Excess, Art NOT REPORTED [place] Pt Temp NOT REPORTED [place] Sample Site NOT REPORTED [place] TCO2 (calc), Art 20 mmol/L Low 22 - 29 mmol/L [place] Graham Test NOT REPORTED [place] FIO2 NOT REPORTED [place] Mode NOT REPORTED [place] Negative Base Excess, Art 4 High [place] O2 Device/Flow/% NOT REPORTED [place] POC HCO3 19.6 mmol/L Low 21 - 28 mmol/L [place] POC O2 SAT 100 % High 94 - 98 % [place] POC pCO2 30.9 Low [place] POC pCO2 Temp NOT REPORTED mm Hg [place] POC pH 7.409 [place] POC pH Temp NOT REPORTED [place] POC PO2 443.8 High [place] POC pO2 Temp NOT REPORTED mm Hg [place] Positive Base Excess, Art NOT REPORTED [place] Pt Temp NOT REPORTED [place] Sample Site NOT REPORTED [place] TCO2 (calc), Art 21 mmol/L Low 22 - 29 mmol/L [place] Graham Test NOT REPORTED [place] FIO2 NOT REPORTED [place] Mode NOT REPORTED [place] Negative Base Excess, Art 10 High [place] O2 Device/Flow/% NOT REPORTED [place] POC HCO3 17.5 mmol/L Low 21 - 28 mmol/L [place] POC O2 SAT 100 % High 94 - 98 % [place] POC pCO2 43.9 [place] POC pCO2 Temp NOT REPORTED mm Hg [place] POC pH 7.209 Low [place] POC pH Temp NOT REPORTED [place] POC PO2 540.9 High [place] POC pO2 Temp NOT REPORTED mm Hg [place] Positive Base Excess, Art NOT REPORTED [place] Pt Temp NOT REPORTED [place] Sample Site NOT REPORTED [place] TCO2 (calc), Art 19 mmol/L Low 22 - 29 mmol/L [place] Graham Test NOT REPORTED [place] FIO2 50.0 [place] Mode SIMV(PRVC)+ PS [place] Negative Base Excess, Art 4 High [place] O2 Device/Flow/% Adult Ventilator [place] POC HCO3 21.4 mmol/L 21 - 28 mmol/L [place] POC O2 SAT 100 % High 94 - 98 % [place] POC pCO2 40.7 [place] POC pCO2 Temp NOT REPORTED mm Hg [place] POC pH 7.329 Low [place] POC pH Temp NOT REPORTED [place] POC PO2 173.9 High [place] POC pO2 Temp NOT REPORTED mm Hg [place] Positive Base Excess, Art NOT REPORTED [place] Pt Temp NOT REPORTED [place] Sample Site NOT REPORTED [place] TCO2 (calc), Art 23 mmol/L 22 - 29 mmol/L [place] Graham Test NOT REPORTED [place] FIO2 NOT REPORTED [place] Mode NOT REPORTED [place] Negative Base Excess, Art 3 High [place] O2 Device/Flow/% NOT REPORTED [place] POC HCO3 22.1 mmol/L 21 - 28 mmol/L [place] POC O2 SAT 100 % High 94 - 98 % [place] POC pCO2 37.6 [place] POC pCO2 Temp NOT REPORTED mm Hg [facility] [place]- [place], [place] POC pH 7.378 [place] POC pH Temp NOT REPORTED [place] POC PO2 547.2 High [place] POC pO2 Temp NOT REPORTED mm Hg [place] Positive Base Excess, Art NOT REPORTED [place] Pt Temp NOT REPORTED [place] Sample Site NOT REPORTED [place] TCO2 (calc), Art 23 mmol/L 22 - 29 mmol/L [place] Graham Test NOT REPORTED [place] FIO2 NOT REPORTED [place] Mode NOT REPORTED [place] Negative Base Excess, Art NOT REPORTED [place] O2 Device/Flow/% NOT REPORTED [place] POC HCO3 27.0 mmol/L 21 - 28 mmol/L [place] POC O2 SAT 100 % High 94 - 98 % [place] POC pCO2 39.5 [place] POC pCO2 Temp NOT REPORTED mm Hg [facility] [place]- [place] POC pH 7.442 [place] POC pH Temp NOT REPORTED [place] POC PO2 422.0 High [place] POC pO2 Temp NOT REPORTED mm Hg [place] Positive Base Excess, Art 3 [place] Pt Temp NOT REPORTED [place] Sample Site NOT REPORTED [place] TCO2 (calc), Art 28 mmol/L 22 - 29 mmol/L [place] Graham Test NOT REPORTED [place] FIO2 NOT REPORTED [place] Mode NOT REPORTED [place] Negative Base Excess, Art NOT REPORTED [place] O2 Device/Flow/% NOT REPORTED [place] POC HCO3 24.6 mmol/L 21 - 28 mmol/L [place] POC O2 SAT 100 % High 94 - 98 % [place] POC pCO2 37.5 [place] POC pCO2 Temp NOT REPORTED mm Hg [facility] [place]- [place] POC pH 7.425 [place] POC pH Temp NOT REPORTED [place] POC PO2 378.7 High [place] POC pO2 Temp NOT REPORTED mm Hg [place] Positive Base Excess, Art 0 [place] Pt Temp NOT REPORTED [place] Sample Site NOT REPORTED [place] TCO2 (calc), Art 26 mmol/L 22 - 29 mmol/L [place] Graham Test NOT REPORTED [place] FIO2 NOT REPORTED [place] Mode NOT REPORTED [place] Negative Base Excess, Art NOT REPORTED [place] O2 Device/Flow/% NOT REPORTED [place] POC HCO3 25.1 mmol/L 21 - 28 mmol/L [place] POC O2 SAT 100 % High 94 - 98 % [place] POC pCO2 37.5 [place] POC pCO2 Temp NOT REPORTED mm Hg [facility], [place] POC pH 7.434 [place] POC pH Temp NOT REPORTED [place] POC PO2 435.9 High [place] POC pO2 Temp NOT REPORTED mm Hg [place] Positive Base Excess, Art 1 [place] Pt Temp NOT REPORTED [place] Sample Site NOT REPORTED [place] TCO2 (calc), Art 26 mmol/L 22 - 29 mmol/L [place] Graham Test NOT REPORTED [place] FIO2 NOT REPORTED [place] Mode NOT REPORTED [place] Negative Base Excess, Art 1 [place] O2 Device/Flow/% NOT REPORTED [place] POC HCO3 23.8 mmol/L 21 - 28 mmol/L [place] POC O2 SAT 100 % High 94 - 98 % [place] POC pCO2 40.0 [place] POC pCO2 Temp NOT REPORTED mm Hg [place] POC pH 7.382 [place] POC pH Temp NOT REPORTED [place] POC PO2 424.6 High [place] POC pO2 Temp NOT REPORTED mm Hg [place] Positive Base Excess, Art NOT REPORTED [place] Pt Temp NOT REPORTED [place] Sample Site NOT REPORTED [place] TCO2 (calc), Art 25 mmol/L 22 - 29 mmol/L [place] Graham Test NOT REPORTED [place] FIO2 NOT REPORTED [place] Mode NOT REPORTED [place] Negative Base Excess, Art 2 [place] O2 Device/Flow/% NOT REPORTED [place] POC HCO3 23.2 mmol/L 21 - 28 mmol/L [place] POC O2 SAT 100 % High 94 - 98 % [place] POC pCO2 43.1 [place] POC pCO2 Temp NOT REPORTED mm Hg [place] POC pH 7.340 Low [place] POC pH Temp NOT REPORTED [place] POC PO2 342.7 High [place] POC pO2 Temp NOT REPORTED mm Hg [place] Positive Base Excess, Art NOT REPORTED [place] Pt Temp NOT REPORTED [place] Sample Site NOT REPORTED [place] TCO2 (calc), Art 25 mmol/L 22 - 29 mmol/L [place] Graham Test NOT REPORTED [place] FIO2 NOT [place]PORTED [place] Mode NOT REPORTED [place] Negative Base Excess, Art 1 [place] O2 Device/Flow/% NOT REPORTED [place] POC HCO3 23.3 mmol/L 21 - 28 mmol/L [place] POC O2 SAT 100 % High 94 - 98 % [place] POC pCO2 35.9 [place] POC pCO2 Temp NOT REPORTED mm Hg [place] POC pH 7.421 [place] POC pH Temp NOT REPORTED [place] POC PO2 357.8 High [place] POC pO2 Temp NOT REPORTED mm Hg [place] Positive Base Excess, Art NOT REPORTED [place] Pt Temp NOT REPORTED [place] Sample Site NOT REPORTED [place] TCO2 (calc), Art 24 mmol/L 22 - 29 mmol/L [place] BASIC METABOLIC PANELon 02- Anion gap [Moles/Vol] 21 mmol/L High 9 - 17 mmol/L [place] Bun/Cre Ratio NOT REPORTED [place] Calcium [Mass/Vol] 9.3 mg/dL 8.6 - 10. 4 mg/dL [place] Chloride [Moles/Vol] 113 mmol/L High 98 - 10 7 mmol/L [place] CO2 [Moles/Vol] 19 mmol/L Low 20 - 31 mmol/L [place] Creatinine [Mass/Vol] 1.35 mg/dL High 0.5 - 0.9 mg/dL [place] GFR 47 mL/min Low >60 [place] GFR Comment [place] GFR Non- 39 mL/min Low >60 [place] GFR Staging NOT REPORTED [place] Glucose [Mass/Vol] 178 mg/dL High 70 - 99 mg/dL [place] Interpretation and review of laboratory results Abnormal [place] Potassium [Moles/Vol] 3.9 mmol/L 3.7 - 5.3 mmol/L [place] Sodium [Moles/Vol] 153 mmol/L High 135 - 144 mmol/L [place] Urea nitrogen [Mass/Vol] 18 mg/dL 8 - 23 mg/dL [place] BL GAS,MIX-RUFINO,EXTon 020 HbCO, Mixed, Extended 0.8 % 0 - 5 % [place] Hemoglobin, Mixed, Extended 12.6 g/dL 12 - 18 g/dL [place] MetHb, Mixed, Extended 0.8 % 0 - 1.5 % [place] O2 Content, Mixed, Extended 11 [place] O2 Sat, Mixed, Extended 65.6 % 60 - 80 % [place] Oxygen Status 40 [place] Basic Metabolic Panelon 06-23 Anion gap [Moles/Vol] 19 mmol/L High 9 - 17 mmol/L [place] Bun/Cre Ratio NOT REPORTED [place] Calcium [Mass/Vol] 9.8 mg/dL 8.6 - 10. 4 mg/dL [place] Chloride [Moles/Vol] 113 mmol/L High 98 - 10 7 mmol/L [place] CO2 [Moles/Vol] 21 mmol/L 20 - 31 mmol/L [place] Creatinine [Mass/Vol] 1.16 mg/dL High 0.5 - 0.9 mg/dL [place] GFR 56 mL/min Low >60 [place] GFR Comment [place] GFR Non- 46 mL/min Low >60 [place] GFR Staging NOT REPORTED [place] Glucose [Mass/Vol] 157 mg/dL High 70 - 99 mg/dL [place] Interpretation and review of laboratory results Abnormal [place] Potassium [Moles/Vol] 3.6 mmol/L Low 3.7 - 5.3 mmol/L [place] Sodium [Moles/Vol] 153 mmol/L High 135 - 144 mmol/L [place] Urea nitrogen [Mass/Vol] 16 mg/dL 8 - 23 mg/dL [place] Anion gap [Moles/Vol] 17 mmol/L 9 - 17 mmol/L [place] Bun/Cre Ratio NOT REPORTED [place] Calcium [Mass/Vol] 8.9 mg/dL 8.6 - 10. 4 mg/dL [place] Chloride [Moles/Vol] 107 mmol/L 98 - 10 7 mmol/L [place] CO2 [Moles/Vol] 17 mmol/L Low 20 - 31 mmol/L [place] Creatinine [Mass/Vol] 1.24 mg/dL High 0.5 - 0.9 mg/dL [place] GFR 52 mL/min Low >60 [place] GFR Comment [place] GFR Non- 43 mL/min Low >60 [place] GFR Staging NOT REPORTED [place] Glucose [Mass/Vol] 178 mg/dL High 70 - 99 mg/dL [place] Potassium [Moles/Vol] 4.3 mmol/L 3.7 - 5.3 mmol/L [place] Sodium [Moles/Vol] 141 mmol/L 135 - 144 mmol/L [place] Urea nitrogen [Mass/Vol] 17 mg/dL 8 - 23 mg/dL [place] Basic Metabolic Profon 07-03 BUN/CRE Ratio NOT REPORTED Normal 02-09 [facility] Comment on above: Performed By: #### C DP, PFA, CP, GLYHGB #### [facility] [employer] [address] [place] [address] Job Coach/Job Developer: Savage Jacob MD Staging: NOT REPORTED Normal [facility] Comment on above: Performed By: #### C DP, PFA, CP, GLYHGB #### [address] [address] Job Coach/Job Developer: Savage Jacob MD (cont.) Normal [facility] Comment on above: Result Comment: Aver age GFR for 70 or more years old: 75 mL/min/1.73sq m Chronic Kidney Disease: <60 mL/min/1.73sq m Kidney failure: <15 mL/min/1.73sq m eGFR calculated using average adult body mass. Additional eGFR calculator available at: http://[email or web address]_[email or web address].htm Performed By: #### C DP, PFA, CP, GLYHGB #### [address] [address] Job Coach/Job Developer: Savage Jacob MD Anion gap [Moles/Vol] 17 mmol/L Normal 9-17 [facility] Comment on above: Performed By: #### C DP, PFA, CP, GLYHGB #### [address] [address] Job Coach/Job Developer: Savage Jacob MD Calcium [Mass/Vol] 8.9 mg/dL Normal 8.6-10.4 [facility] Comment on above: Performed By: #### C DP, PFA, CP, GLYHGB #### [facility] [employer] [address] [place] [address] Job Coach/Job Developer: Savage Jacob MD Chloride [Moles/Vol] 107 mmol/L Normal 98-107 [facility] Comment on above: Performed By: #### C DP, PFA, CP, GLYHGB #### [facility] [employer] [address] [place] [address] Job Coach/Job Developer: Savage Jacob MD CO2 [Moles/Vol] 17 mmol/L Low 20-31 [facility] Comment on above: Performed By: #### C DP, PFA, CP, GLYHGB #### [facility] [employer] [address] [place] [address] Job Coach/Job Developer: Savage Jacob MD Creatinine [Mass/Vol] 1.24 mg/dL High 0.50-0.90 [facility] Comment on above: Performed By: #### C DP, PFA, CP, GLYHGB #### [facility] [employer] [address] [place] [address] Job Coach/Job Developer: Savage Jacob MD GFR, Amer 52 mL/min Low >60 [facility] Comment on above: Performed By: #### C DP, PFA, CP, GLYHGB #### [address] [address] Job Coach/Job Developer: Savage Jacob MD GFR,non Amer 43 mL/min Low >60 [facility] Comment on above: Performed By: #### C DP, PFA, CP, GLYHGB #### [address] [address] Job Coach/Job Developer: Savage Jacob MD Glucose [Mass/Vol] 178 mg/dL High 70-99 [facility] Comment on above: Performed By: #### C DP, PFA, CP, GLYHGB #### [facility] [employer] [address] [place] [address] Job Coach/Job Developer: Savage Jacob MD Potassium [Moles/Vol] 4.3 mmol/L Normal 3.7-5.3 [facility] Comment on above: Performed By: #### C DP, PFA, CP, GLYHGB #### [facility] [employer] [address] [place] [address] Job Coach/Job Developer: Savage Jacob MD Sodium [Moles/Vol] 141 mmol/L Normal 135-144 [facility] Comment on above: Performed By: #### C DP, PFA, CP, GLYHGB #### [facility] [address] [place] [address] Job Coach/Job Developer: Savage Jacob MD Urea nitrogen [Mass/Vol] 17 mg/dL Normal - [facility] Comment on above: Performed By: #### C DP, PFA, CP, GLYHGB #### [facility] [address] [place] [address] Job Coach/Job Developer: Savage Jacob MD BUN/CRE Ratio NOT REPORTED Normal - [facility] Comment on above: Performed By: #### C DP, PFA, CP, GLYHGB #### [facility] [address] [place] [address] Job Coach/Job Developer: Savage Jacob MD Staging: NOT REPORTED Normal [facility] Comment on above: Performed By: #### C DP, PFA, CP, GLYHGB #### [facility] [address] [place] [address] Job Coach/Job Developer: Savage Jacob MD CALCIUM, IONIC (POC)on 07-03 POC Ionized Calcium 1.25 mmol/L 1.15 - 1 .33 mmol/L [place] POC Ionized Calcium 1.39 mmol/L High 1.15 - 1 .33 mmol/L [place] POC Ionized Calcium 1.47 mmol/L High 1.15 - 1 .33 mmol/L [place] POC Ionized Calcium 1.19 mmol/L 1.15 - 1 .33 mmol/L [place] POC Ionized Calcium 0.94 mmol/L Low 1.15 - 1 .33 mmol/L [place] POC Ionized Calcium 1.11 mmol/L Low 1.15 - 1 .33 mmol/L [place] POC Ionized Calcium 1.22 mmol/L 1.15 - 1 .33 mmol/L [place] POC Ionized Calcium 1.29 mmol/L 1.15 - 1 .33 mmol/L [place] POC Ionized Calcium 0.96 mmol/L Low 1.15 - 1 .33 mmol/L [place] POC Ionized Calcium 0.98 mmol/L Low 1.15 - 1 .33 mmol/L [place] POC Ionized Calcium 0.94 mmol/L Low 1.15 - 1 .33 mmol/L [place] POC Ionized Calcium 0.99 mmol/L Low 1.15 - 1 .33 mmol/L [place] POC Ionized Calcium 1.16 mmol/L 1.15 - 1 .33 mmol/L [place] POC Ionized Calcium 1.16 mmol/L 1.15 - 1 .33 mmol/L [place] CALCIUM, IONIZEDon 0 Calcium, Ion 1.14 mmol/L 1.13 - 1.33 mmol/L [place] Calcium, Ion 1.32 mmol/L 1.13 - 1.33 mmol/L [place] Calcium, Ion 1.22 mmol/L 1.13 - 1.33 mmol/L [place] CBCon 07-03-2019 Erythrocyte distribution width (RBC) [Ratio] 15.0 % High 11.8-14.4 [facility] Comment on above: Performed By: #### C DP, PFA, CP, GLYHGB #### [employer] [address] [place], [place] [phone] Job Coach/Job Developer: Savage Jacob MD Hematocrit (Bld) [Volume fraction] 55.5 % High 36.3-47.1 [facility] Comment on above: Performed By: #### C DP, PFA, CP, GLYHGB #### [employer] [address] [place], [place] [phone] Job Coach/Job Developer: Savage Jacob MD Hemoglobin (Bld) [Mass/Vol] 18.8 g/dL High 11.9-15.1 [facility] Comment on above: Performed By: #### C DP, PFA, CP, GLYHGB #### [employer] [address] [place] [address] Job Coach/Job Developer: Savage Jacob MD MCH (RBC) [Entitic mass] 28.4 pg Normal 25.2-33.5 [facility] Comment on above: Performed By: #### C DP, PFA, CP, GLYHGB #### [address] [address] Job Coach/Job Developer: Savage Jacob MD MCHC (RBC) [Mass/Vol] 33.9 g/dL Normal 28.4-34.8 [facility] Comment on above: Performed By: #### C DP, PFA, CP, GLYHGB #### [place] [address] Job Coach/Job Developer: Savage Jacob MD MCV (RBC) [Entitic vol] 83.7 fL Normal 82.6-102.9 [facility] Comment on above: Performed By: #### C DP, PFA, CP, GLYHGB #### [place] [address] Job Coach/Job Developer: Savage Jacob MD NRBC Automated 0.0 per 100 WBC Normal 0.0 [facility] Comment on above: Performed By: #### C DP, PFA, CP, GLYHGB #### [place] [address] Job Coach/Job Developer: Savage Jacob MD Platelets (Bld) [#/Vol] See Reflexed IPF Result Normal 138-453 [facility] Comment on above: Performed By: #### C DP, PFA, CP, GLYHGB #### [place] [address] Job Coach/Job Developer: Savage Jacob MD RBC (Bld) [#/Vol] 6.63 10*6/uL High 3.95-5.11 [facility] Comment on above: Performed By: #### C DP, PFA, CP, GLYHGB #### [facility] [employer] [address] [place], [place] [phone] Job Coach/Job Developer: Savage Jacob MD WBC (Bld) [#/Vol] 21.5 10*3/uL High 3.5-11.3 [facility] Comment on above: Performed By: #### C DP, PFA, CP, GLYHGB #### [facility] [employer] [address] [place], [place] [phone] Job Coach/Job Developer: Savage Jacob MD Platelet mean volume (Bld) [Entitic vol] NOT REPORTED Normal 8.1-13.5 [facility] Comment on above: Performed By: #### C DP, PFA, CP, GLYHGB #### [facility] [employer] [address] [place], [place] [phone] Job Coach/Job Developer: Savage Jacob MD Erythrocyte distribution width (RBC) [Ratio] 15.0 % High 11.8 - 14.4 % [place] Hematocrit (Bld) [Volume fraction] 55.5 % High 36.3 - 47.1 % [place] Hemoglobin (Bld) [Mass/Vol] 18.8 g/dL High 11.9 - 15.1 g/dL [place] Interpretation and review of laboratory results Abnormal [place] MCH (RBC) [Entitic mass] 28.4 pg 25.2 - 33.5 pg [place] MCHC (RBC) [Mass/Vol] 33.9 g/dL 28.4 - 34.8 g/dL [place] MCV (RBC) [Entitic vol] 83.7 fL 82.6 - 102.9 fL [place] Platelet mean volume (Bld) [Entitic vol] NOT REPORTED 8.1 - 13.5 fL [place] Platelets (Bld) [#/Vol] See Reflexed IPF Result [place] RBC (Bld) [#/Vol] 6.63 10*6/uL High 3.95 - 5.1 1 m/uL [place] WBC (Bld) [#/Vol] 21.5 10*3/uL [place] WBC (Bld) [#/Vol] 0.0 10*3/uL 0.0 per 10 0 WBC [place] CBC WITH AUTO DIFFERENTIALon 07-03-2019 Absolute Eos # 0.14 [place] Absolute Immature Granulocyte 0.21 [place] Absolute Lymph # 1.73 [place] Absolute [place] # 1.07 [place] Basophils 0 % 0 - 2 % [place] Basophils (Bld) [#/Vol] 0.06 10*3/uL [place] Differential Type NOT REPORTED [place] Eosinophils/100 WBC (Bld) 1 % 1 - 4 % [place] Erythrocyte distribution width (RBC) [Ratio] 14.5 % High 11.8 - 14.4 % [place] Hematocrit (Bld) [Volume fraction] 37.0 % 36.3 - 47.1 % [place] Hemoglobin (Bld) [Mass/Vol] 12.8 g/dL 11.9 - 15.1 g/dL [place] Immature Granulocytes 1 % High 0 [place] Interpretation and review of laboratory results Abnormal [place] Lymphocytes 10 % Low 24 - 43 % [place] MCH (RBC) [Entitic mass] 29.2 pg 25.2 - 33.5 pg [place] MCHC (RBC) [Mass/Vol] 34.6 g/dL 28.4 - 34.8 g/dL [place] MCV (RBC) [Entitic vol] 84.3 fL 82.6 - 102.9 fL [place] Monocytes 6 % 3 - 12 % [place] Platelet mean volume (Bld) [Entitic vol] 8.9 fL 8.1 - 13.5 fL [place] Platelets (Bld) [#/Vol] 75 10*3/uL Low [place] Platelets (Bld) [#/Vol] NOT REPORTED [place] RBC (Bld) [#/Vol] 4.39 10*6/uL 3.95 - 5.1 1 m/uL [place] RBC morphology finding Nom (Bld) ANISOCYTOSIS PRESENT [place] Seg Neutrophils 82 % High 36 - 65 % [facility] [place] Segs Absolute 14.05 High [place] WBC (Bld) [#/Vol] 17.3 10*3/uL High [place] WBC (Bld) [#/Vol] 0.0 10*3/uL 0.0 per 10 0 WBC [place] WBC Morphology NOT REPORTED [place] CHLORIDE (POC)on 07-03-2019 POC Chloride 113 mmol/L High 98 - 107 mmol/L [place] POC Chloride 108 mmol/L High 98 - 107 mmol/L [place] POC Chloride 110 mmol/L High 98 - 107 mmol/L [place] POC Chloride 110 mmol/L High 98 - 107 mmol/L [place] POC Chloride 105 mmol/L 98 - 107 mmol/L [place] POC Chloride 103 mmol/L 98 - 107 mmol/L [place] POC Chloride 108 mmol/L High 98 - 107 mmol/L [place] Calcium, Ionicon 07-03-2019 Calcium [Mass/Vol] 1.22 mmol/L Normal 1.13-1.33 [facility] Comment on above: Performed By: #### C DP, PFA, CP, GLYHGB #### [employer] [address] [place], [place] [phone] Job Coach/Job Developer: Savage Jacob MD Creatinine W/GFR Point of Ca reon 07-03-2019 GFR Comment [place] GFR Comment 50 mL/min Low >60 [place] GFR Non- 41 mL/min Low >60 [place] POC Creatinine 1.28 mg/dL High 0.51 - 1.19 mg/dL [place] GFR Comment [place] GFR Comment 55 mL/min Low >60 [place] GFR Non- 46 mL/min Low >60 [place] POC Creatinine 1.17 mg/dL 0.51 - 1.19 mg/dL [place] GFR Comment >60 >60 mL/min [place] GFR Comment [place] GFR Non- 52 mL/min Low >60 [place] POC Creatinine 1.04 mg/dL 0.51 - 1.19 mg/dL [place] GFR Comment >60 >60 mL/min [place] GFR Comment [place] GFR Non- 56 mL/min Low >60 [place] POC Creatinine 0.99 mg/dL 0.51 - 1.19 mg/dL [place] GFR Comment [place] GFR Comment >60 >60 mL/min [place] GFR Non- >60 >60 mL/min [place] POC Creatinine 0.91 mg/dL 0.51 - 1.19 mg/dL [place] GFR Comment >60 >60 mL/min [place] GFR Comment [place] GFR Non- 53 mL/min Low >60 [place] POC Creatinine 1.03 mg/dL 0.51 - 1.19 mg/dL [place] FIBRINOGENon 07-03-2019 Fibrinogen <80 Critically low 140 - 420 mg/dL [place] Interpretation and review of laboratory results Abnormal [place] Fibrinogenon 07-03-2019 Fibrinogen 151 mg/dL Normal 140-420 [facility] Comment on above: Performed By: #### C DP, PFA, CP, GLYHGB #### [employer] [address] [place] [address] Job Coach/Job Developer: Savage Jacob MD Fibrinogen 151 mg/dL 140 - 420 mg/dL [place] Hemoglobin and hematocrit, b loodon 07-03-2019 POC Hematocrit 32 % Low 36 - 46 % [place] POC Hemoglobin 11.0 g/dL Low 12 - 16 g/dL [facility]- [place], POC Hematocrit 46 % 36 - 46 % [facility] [place]- [place] POC Hemoglobin 15.5 g/dL 12 - 16 g/dL [facility] [place] POC Hematocrit 37 % 36 - 46 % [facility] [place] POC Hemoglobin 12.6 g/dL 12 - 16 g/dL [facility] [place] POC Hematocrit 36 % 36 - 46 % [facility] [place]- [place] POC Hemoglobin 12.2 g/dL 12 - 16 g/dL [facility] [place] POC Hematocrit 30 % Low 36 - 46 % [facility] [place]- [place] POC Hemoglobin 10.3 g/dL Low 12 - 16 g/dL [facility] [place] POC Hematocrit 20 % Low 36 - 46 % [facility]- [place], POC Hemoglobin 7.0 g/dL Critically low 12 - 16 g/dL [facility] POC Hematocrit 31 % Low 36 - 46 % [facility] [place] POC Hemoglobin 10.6 g/dL Low 12 - 16 g/dL [facility] [place] P[place] Hematocrit 26 % Low 36 - 46 % [facility] [place] Hemoglobin 8.7 g/dL Low 12 - 16 g/dL [facility] [place] Hematocrit 22 % Low 36 - 46 % [facility]- [place] Hemoglobin 7.4 g/dL Low 12 - 16 g/dL [facility] [place] Hematocrit 24 % Low 36 - 46 % [facility] [place] Hemoglobin 8.0 g/dL Low 12 - 16 g/dL [facility] [place] Hematocrit 24 % Low 36 - 46 % [facility] [place] Hemoglobin 8.1 g/dL Low 12 - 16 g/dL [facility] [place] Hematocrit 25 % Low 36 - 46 % [facility]- [place] Hemoglobin 8.4 g/dL Low 12 - 16 g/dL [facility] [place]- [place], POC Hematocrit 26 % Low 36 - 46 % [facility] th- [place], [place] Hemoglobin 9.0 g/dL Low 12 - 16 g/dL [facility] [place]- [place], POC Hematocrit 27 % Low 36 - 46 % [place], [place] POC Hemoglobin 9.2 g/dL Low 12 - 16 g/dL [facility] [place] Hematocrit 26 % Low 36 - 46 % [place] POC Hemoglobin 8.9 g/dL Low 12 - 16 g/dL [facility] [place] Hepatic Function Panelon Albumin [Mass/Vol] 3.2 g/dL Low 3.5 - 5.2 g/dL [place] Albumin/Globulin [Mass ratio] 2.9 {ratio} High [place] ALP [Catalytic activity/Vol] 20 U/L Low 35 - 104 U/L [place] ALT [Catalytic activity/Vol] 161 U/L High 5 - 33 U/L [place] AST [Catalytic activity/Vol] 195 U/L High <32 [place] Bilirubin Ql (U) 0.70 mg/dL 0.3 - 1.2 mg/dL [place] Bilirubin, Indirect 0.52 mg/dL 0 - 1 mg/dL [place] Bilirubin.direct [Mass/Vol] 0.18 mg/dL <0.31 [place] Globulin NOT REPORTED 1.5 - 3.8 g/dL [place] Interpretation and review of laboratory results Abnormal [place] Protein [Mass/Vol] 4.3 g/dL Low 6.4 - 8.3 g/dL [place] Immature Platelet Fractionon 07-03-2019 Interpretation and review of laboratory results Abnormal [place] Platelet, Fluorescence 43 Low [place] Platelet, Immature Fraction 1.6 % 1.1 - 10.3 % [place] LACTIC ACID, WHOLE BLOODon 0 07-03-2019 Interpretation and review of laboratory results Abnormal [place] Lactic Acid, Whole Blood 7.8 mmol/L High 0.7 - 2.1 mmol/L [place] Lactic Acid, POCon 0 POC Lactic Acid 8.50 mmol/L High 0.56 - 1.39 mmol/L [place] POC Lactic Acid 7.80 mmol/L High 0.56 - 1.39 mmol/L [place] POC Lactic Acid 9.22 mmol/L High 0.56 - 1.39 mmol/L [place] POC Lactic Acid 9.18 mmol/L High 0.56 - 1.39 mmol/L [place] POC Lactic Acid 10.36 mmol/L High 0.56 - 1.39 mmol/L [place] POC Lactic Acid 12.34 mmol/L High 0.56 - 1.39 mmol/L [place] MAGNESIUMon 07-03-2019 Magnesium [Mass/Vol] 2.5 mg/dL 1.6 - 2 .6 mg/dL [place] Magnesiumon 07-03-2019 Magnesium [Mass/Vol] 2.6 mg/dL 1.6 - 2 .6 mg/dL [place] Magnesium [Mass/Vol] 3.5 mg/dL High 1.6-2.6 [facility] Comment on above: Performed By: #### C DP, PFA, CP, GLYHGB #### [facility] [address] [place] [address] Job Coach/Job Developer: Savage Jacob MD Magnesium [Mass/Vol] 3.5 mg/dL High 1.6 - 2 .6 mg/dL [place] Mixed Venous Gas, POCon 06-23 Graham Test NOT REPORTED [place] FIO2 NOT REPORTED [place] HCO3, Mixed 23.7 mmol/L 23 - 29 mmol/L [place] Mode NOT REPORTED [place] Negative Base Excess, Mixed 1 [place] O2 Device/Flow/% NOT REPORTED [place] O2 Sat, Mixed 70 % 60 - 80 % [place] PCO2, Mixed 39.6 Low [place] PH MIXED 7.384 [place] PO2, Mixed 37.4 [place] POC pCO2 Temp NOT REPORTED mm Hg [place] POC pH Temp NOT REPORTED [place] POC pO2 Temp NOT REPORTED mm Hg [place], [place] Positive Base Excess, Mixed NOT REPORTED [place] Pt Temp NOT REPORTED [place] Sample Site NOT REPORTED [place] tCO2, Mixed 25 mmol/L 24 - 30 mmol/L [place] OPEN HEART COAGon 07-03-2019 aPTT Coag (Bld) [Time] 85.9 s Critically high [place] Fibrinogen <80 Critically low 140 - 420 mg/dL [place] INR Coag (PPP) [Relative time] 3.2 {INR} [place] Interpretation and review of laboratory results Abnormal [place] Platelets (Bld) [#/Vol] DUPLICATE ORDER k/uL [place] PT Coag (PPP) [Time] 31 s High [place] Otheron 07-03-2019 Interpretation and review of laboratory results Abnormal [place] Interpretation and review of laboratory results Abnormal [place] Interpretation and review of laboratory results Abnormal [place] Interpretation and review of laboratory results Abnormal [place] Interpretation and review of laboratory results Abnormal [place] Interpretation and review of laboratory results Abnormal [place] Interpretation and review of laboratory results Abnormal [place] Interpretation and review of laboratory results Abnormal [place] Interpretation and review of laboratory results Abnormal [place] Interpretation and review of laboratory results Abnormal [place] Interpretation and review of laboratory results Abnormal [place] Interpretation and review of laboratory results Abnormal [place] Interpretation and review of laboratory results Abnormal [place] Interpretation and review of laboratory results Abnormal [place] Interpretation and review of laboratory results Abnormal [place] Interpretation and review of laboratory results Abnormal [place] PLT, Immature Fract.on 07-03 Platelet, Fluoresc. 43 k/uL Low 138-453 [facility] Comment on above: Result Comment: ORDE RED BY LAB Performed By: #### C DP, PFA, CP, GLYHGB #### [facility] [address] [place] [address] Job Coach/Job Developer: Savage Jacob MD PLT, Immature Fract. 1.6 % Normal 1.1-10.3 [facility] Comment on above: Result Comment: ORDE RED BY LAB Performed By: #### C DP, PFA, CP, GLYHGB #### [facility] [address] [place] [address] Job Coach/Job Developer: Savage Jacob MD POC Glucose Fingerstickon Interpretation and review of laboratory results Abnormal [place] POC Glucose 164 mg/dL High 65 - 105 mg/dL [place] Interpretation and review of laboratory results Abnormal [place] POC Glucose 143 mg/dL High 65 - 105 mg/dL [place] POCT Glucoseon 07-03-2019 POC Glucose 176 mg/dL High 74 - 100 mg/dL [place] POC Glucose 148 mg/dL High 74 - 100 mg/dL [place] POC Glucose 144 mg/dL High 74 - 100 mg/dL [place] POC Glucose 161 mg/dL High 74 - 100 mg/dL [place] POC Glucose 183 mg/dL High 74 - 100 mg/dL [place] POC Glucose 192 mg/dL High 74 - 100 mg/dL [place] POC Glucose 174 mg/dL High 74 - 100 mg/dL [place] POC Glucose 160 mg/dL High 74 - 100 mg/dL [place] POC Glucose 129 mg/dL High 74 - 100 mg/dL [place] POC Glucose 119 mg/dL High 74 - 100 mg/dL [place] POC Glucose 127 mg/dL High 74 - 100 mg/dL [place] POC Glucose 151 mg/dL High 74 - 100 mg/dL [place] POC Glucose 149 mg/dL High 74 - 100 mg/dL [place] POC Glucose 142 mg/dL High 74 - 100 mg/dL [place] POC Glucose 127 mg/dL High 74 - 100 mg/dL [place] POTASSIUM (POC)on 07-03-2019 POC Potassium 3.7 mmol/L 3.5 - 4.5 mmol/L [facility], [place] POC Potassium 3.6 mmol/L 3.5 - 4.5 mmol/L [facility], [place] POC Potassium 3.6 mmol/L 3.5 - 4.5 mmol/L [facility], [place] POC Potassium 4.0 mmol/L 3.5 - 4.5 mmol/L [facility], [place] POC Potassium 4.0 mmol/L 3.5 - 4.5 mmol/L [facility], [place] POC Potassium 4.0 mmol/L 3.5 - 4.5 mmol/L [facility], [place] POC Potassium 4.2 mmol/L 3.5 - 4.5 mmol/L [facility], [place] POC Potassium 4.5 mmol/L 3.5 - 4.5 mmol/L [facility], [place] POC Potassium 5.3 mmol/L High 3.5 - 4.5 mmol/L [facility], [place] POC Potassium 5.4 mmol/L High 3.5 - 4.5 mmol/L [facility], [place] POC Potassium 5.2 mmol/L High 3.5 - 4.5 mmol/L [facility], [place] POC Potassium 5.7 mmol/L High 3.5 - 4.5 mmol/L [facility], [place] POC Potassium 4.5 mmol/L 3.5 - 4.5 mmol/L [facility], [place] POC Potassium 4.0 mmol/L 3.5 - 4.5 mmol/L [facility], [place] PROTIME-INRon 07-03-2019 INR Coag (PPP) [Relative time] 1.7 {INR} [place] Interpretation and review of laboratory results Abnormal [place] PT Coag (PPP) [Time] 17 s High [place] PTon 07-03-2019 INR Coag (PPP) [Relative time] 1.2 {INR} Normal [facility] Comment on above: Result Comment: Therapeutic Range: Moderate Anticoagulant Intensity: INR = 2.0-3.0 High Anticoagulant Intensity: INR = 2.5-3.5 Performed By: #### C DP, PFA, CP, GLYHGB #### [facility] [address] [place] [address] [id number] Job Coach/Job Developer: Savage Jacob MD PT Coag (PPP) [Time] 12.6 s High 9.0-12.0 [facility] Comment on above: Performed By: #### C DP, PFA, CP, GLYHGB #### [facility] [address] [place] [address] [id number] Job Coach/Job Developer: Savage Jacob MD Platelet Counton 07-03-2019 Platelets (Bld) [#/Vol] 185 10*3/uL Normal 138-453 [facility] Comment on above: Performed By: #### C DP, PFA, CP, GLYHGB #### [facility] [employer] [address] [place] [address] [id number] Job Coach/Job Developer: Savage Jacob MD Platelet counton 07-03-2019 Platelets (Bld) [#/Vol] 185 10*3/uL [place] Protime-INRon 07-03-2019 INR Coag (PPP) [Relative time] 1.2 {INR} [place] Interpretation and review of laboratory results Abnormal [place] PT Coag (PPP) [Time] 12.6 s High [place] SODIUM (POC)on 07-03-2019 POC Sodium 150 mmol/L High 138 - 146 mmol/L [place] POC Sodium 149 mmol/L High 138 - 146 mmol/L [place] POC Sodium 153 mmol/L High 138 - 146 mmol/L [place] POC Sodium 148 mmol/L High 138 - 146 mmol/L [place] POC Sodium 147 mmol/L High 138 - 146 mmol/L [place] POC Sodium 143 mmol/L 138 - 146 mmol/L [place] POC Sodium 141 mmol/L 138 - 146 mmol/L [place] POC Sodium 144 mmol/L 138 - 146 mmol/L [facility], [place] POC Sodium 144 mmol/L 138 - 146 mmol/L [facility] POC Sodium 142 mmol/L 138 - 146 mmol/L [facility] POC Sodium 140 mmol/L 138 - 146 mmol/L [facility] POC Sodium 141 mmol/L 138 - 146 mmol/L [facility] POC Sodium 142 mmol/L 138 - 146 mmol/L [facility], [place] Surgical Pathologyon 020 Surgical Pathology (NOTE) [id number] [facility] ANATOMIC PATHOLOGY [address] [place] [id number] SURGICAL PATHOLOGY CONSULTATION Patient Name: ELEANOR MCCLAIN [facility] Rec: [id number] Path Number: [id number] Collected: 07/03/2019 Received: 07/04/2019 Reported: 07/05/2019 13:33 -- Diagnosis -- 1. AORTIC VALVE, RESECTION: - FIBROSIS, MYXOMATOUS DEGENERATIVE CHANGE AND DYSTROPHIC CALCIFICATIONS. - CLINICAL AORTIC STENOSIS. - NEGATIVE FOR INFECTIOUS VEGETATION. 2. 16 SCREWS, 3 BANDS, 2 PLATES. GROSS ONLY. Loki Francisco, Electronically Signed Out sls/07/05/2019 Clinical Information Pre-op Diagnosis: MULTIVESSEL CORONARY ARTERY [...] masses. Portion 1cs after short decalcification. 2. ELEANOREMET MCCLAIN, 16 SCREWS, 3 PLATES, 3 BANDS Three bands, two plates and sixteen screws. Gross only. tm Microscopic Description 1. Microscopic examination performed. Normal [facility] Comment on above: Performed By: #### U DENIZ Sanabria #### [facility] [address] [place] [id number] Job Coach/Job Developer: Savage Jacob MD Type + Screenon 07-03-2019 Type + Screen Sample Expiration 07/06/2019,2359 Arm Band Number [id number] ABO/Rh(D) A POSITIVE Antibody Screen NEGATIVE Antigen Type,Patient Negative for E Antigen Unit Number [id number] Blood Component Type Leukocyte Reduced Red Cell Unit Division 00 Status of Unit TRANSFUSED Transfusion Status OK TO TRANSFUSE Crossmatch Result COMPATIBLE Unit Number [id number] Blood Component Type Leukocyte Reduced Red Cell Unit Division 00 Status of Unit TRANSFUSED Transfusion Status OK TO TRANSFUSE Crossmatch Result COMPATIBLE Unit Number [id number] Blood Component Type Leukocyte Reduced Red Cell Unit Division 00 Status of Unit TRANSFUSED Transfusion Status OK TO TRANSFUSE Crossmatch Result COMPATIBLE Unit Number [id number] Blood Component Type Leukocyte Reduced Red Cell Unit Division 00 Status of Unit TRANSFUSED Transfusion Status OK TO TRANSFUSE Crossmatch Result COMPATIBLE Unit Number [id number] Blood Component Type Leukocyte Reduced Red Cell Unit Division 00 Status of Unit TRANSFUSED Transfusion Status OK TO TRANSFUSE Crossmatch Result COMPATIBLE Unit Number [id number] Blood Component Type Leukocyte Reduced Red Cell Unit Division 00 Status of Unit TRANSFUSED Transfusion Status OK TO TRANSFUSE Crossmatch Result COMPATIBLE Unit Number [id number] Blood Component Type Leukocyte Reduced Red Cell Unit Division 00 Status of Unit TRANSFUSED Transfusion Status OK TO TRANSFUSE Crossmatch Result COMPATIBLE Unit Number [id number] Blood Component Type Leukocyte Reduced Red Cell Unit Division 00 Status of Unit TRANSFUSED Transfusion Status OK TO TRANSFUSE Crossmatch Result COMPATIBLE Unit Number [id number] Blood Component Type Leukocyte Reduced Red Cell Unit Division 00 Status of Unit TRANSFUSED Transfusion Status OK TO TRANSFUSE Crossmatch Result COMPATIBLE Unit Number [id number] Blood Component Type Leukocyte Reduced Red Cell Unit Division 00 Status of Unit TRANSFUSED Transfusion Status OK TO TRANSFUSE Crossmatch Result COMPATIBLE Unit Number [id number] Blood Component Type Leukocyte Reduced Red Cell Unit Division 00 Status of Unit TRANSFUSED Transfusion Status OK TO TRANSFUSE Crossmatch Result COMPATIBLE Unit Number [id number] Blood Component Type Leukocyte Reduced Red Cell Unit Division 00 Status of Unit REL FROM ALLOC Transfusion Status OK TO TRANSFUSE Crossmatch Result COMPATIBLE Unit Number [id number] Blood Component Type Leukocyte Reduced Red Cell Unit Division 00 Status of Unit REL FROM ALLOC Transfusion Status OK TO TRANSFUSE Crossmatch Result COMPATIBLE Unit Number [id number] Blood Component Type Leukocyte Reduced Red Cell Unit Division 00 Status of Unit REL FROM ALLOC Transfusion Status OK TO TRANSFUSE Crossmatch Result COMPATIBLE Unit Number [id number] Blood Component Type Leukocyte Reduced Red Cell Unit Division 00 Status of Unit REL FROM ALLOC Transfusion Status OK TO TRANSFUSE Crossmatch Result COMPATIBLE Unit Number [id number] Blood Component Type Leukocyte Reduced Red Cell Unit Division 00 Status of Unit REL FROM ALLOC Transfusion Status OK TO TRANSFUSE Crossmatch Result NOT TESTED Unit Number [id number] Blood Component Type Leukocyte Reduced Red Cell Unit Division 00 Status of Unit REL FROM ALLOC Transfusion Status OK TO TRANSFUSE Crossmatch Result NOT TESTED Unit Number [id number] Blood Component Type Leukocyte Reduced Red Cell Unit Division 00 Status of Unit REL FROM ALLOC Transfusion Status OK TO TRANSFUSE Crossmatch Result NOT TESTED Unit Number [id number] Blood Component Type Leukocyte Reduced Red Cell Unit Division 00 Status of Unit REL FROM ALLOC Transfusion Status OK TO TRANSFUSE Crossmatch Result NOT TESTED Normal [facility] Comment on above: Performed By: #### U DENIZ Sanabria #### [facility] [employer] [facility] [place], [place] [id number] Job Coach/Job Developer: Savage Jacob MD XR CHEST PORTABLEon 07-03-19 [...] 13 cm is recommended. Right IJ approach [place] catheter distal tip overlying the expected location [...] Enzo Plascencia MD 07/03/19 Final result Normal [facility] XR CHEST PORTABLE EXAMINATION: ONE XRAY VIEW [...] Jesús Clemons MD 07/03/19 Final result Normal [facility], [facility], [place] [facility] [facility] [facility] [facility], [place] CT Chest WO Contraston [...] known risk factors. Radiology 2017 http://pubs.rsna.org/ doi/full/10.1148/radi ol.6410535043 [employer] Work Phone: EXAMINATION: CT OF THE CHEST [...] No acute soft tissue abnormality is seen. [employer] Work Phone: [place], [place] Incoming Radiant Results From [employer]/MST - 06/29/2019 4:37 PM EST EXAMINATION: CT [...] known risk factors. 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 Ordered by: Vasiliy Garcia APRN-BOOKMOBILE LIBRARIAN Conclusions Summary Moderate 50-69% stenosis of the [...] + - Additional Measurements:ICAPSV/C CAPSV 1.37.ICAEDV/CCAEDV 1.98. 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 Ordered by: Vasiliy Garcia APRN-BOOKMOBILE LIBRARIAN Conclusions Summary Moderate 50-69% stenosis of the [...] + - Additional Measurements:ICAPSV/C CAPSV 1.37.ICAEDV/CCAEDV 1.98. 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 Indications for Study:Pre-op [facility]. Patient Status:Out Patient. Conclusions Summary No DVT in the bilateral common femoral veins. Vein sizes are listed in the table above. Signature - - - Electronically signed by Godfrey John([facility]) on 06/27/2019 07:56 PM - Findings: Right Impression: Left Impression: Common [...] !0 ! ! 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 ! + ++- -------+-----+----+-- ------+----- + [employer] Phone: Cult,Urine,CCon 06-26-2019 Cult,Urine,CC Specimen Description .CLEAN CATCH URINE Special Requests NOT REPORTED Culture NO GROWTH Report Status FINAL 06/26/2019 Normal [facility] Comment on above: Performed By: #### C DP, PFA, CP, GLYHGB #### [facility] [address] [place] [address] Job Coach/Job Developer: Savage Jacob MD EKG 12 Leadon 06-26-2019 Atrial Rate 76 BPM [employer] Phone: P [place] 54 degrees [employer] Phone: P-R Interval 162 ms [employer] Phone: Q-T Interval 406 ms [employer] Phone: QRS Duration 86 ms [employer] Phone: QTc Calculation (Bazett) 456 ms [employer] Phone: R [place] 9 degrees [employer] Phone: T [place] 39 degrees [employer] Phone: Ventricular Rate 76 BPM [employer] Phone: Sinus rhythm with occasional Premature ventricular complexes Otherwise normal ECG No previous ECGs available [employer] Phone: [place], [facility] Incoming Ekg Results From [employer] - 06/26/2019 5:35 PM EST Sinus rhythm with occasional Premature ventricular complexes Otherwise normal ECG No previous ECGs available [employer] Phone: MRSA DNA Probe, Nasalon MRSA, DNA, Nasal NEGATIVE: MRSA DNA not detected by nucleic acid amplification. NEGATIVE: MRSA DNA not detected by nucleic acid amplificati [employer] Phone: Comment on above: Results should be used as an adjunct to nosocomial control efforts to identify patients needing enhanced precautions. The test is not intended to identify patients with staphylococcal infections. Results should not be used to guide or monitor treatment for MRSA infections. Specimen Description .NASAL SWAB [facility] [employer] Phone: MRSA, DNA, Nasalon 0 MRSA, DNA, Nasal NEGATIVE: MRSA DNA not detected by nucleic acid amplification. Normal NMRSAA [facility] Comment on above: Result Comment: Results should be used as an adjunct to nosocomial control efforts to identify patients needing enhanced precautions. The test is not intended to identify patients with staphylococcal infections. Results should not be used to guide or monitor treatment for MRSA infections. Performed By: #### C DP, PFA, CP, GLYHGB #### [facility] [place] [address] Job Coach/Job Developer: Savage Jacob MD Urine culture clean catchon 06-26-2019 Culture NO GROWTH [facility] Phone: Special Requests NOT REPORTED [facility] Phone: Specimen Description .CLEAN CATCH URINE [facility] Phone: APTTon 06-25-2019 aPTT Coag (Bld) [Time] 22.5 s Normal 20.5-30.5 [facility] Comment on above: Performed By: #### P T, PTT #### [facility] [address] [place] [id number] Job Coach/Job Developer: Savage Jacob MD aPTT Coag (Bld) [Time] 22.5 s [facility] [employer] Phone: Arterial Blood Gas, POCon Graham Test Positive [facility] Phone: aPTT Coag (Bld) [Time] NOT REPORTED [facility] Phone: FIO2 21.0 [facility] Phone: Interpretation and review of laboratory results Abnormal [facility] Phone: Mode NOT REPORTED [employer] [facility] Work Phone: Negative Base Excess, Art NOT REPORTED [facility] Work Phone: O2 Device/Flow/% Room Air [employer] [facility] Work Phone: Oxygen saturation in Blood 98 % 94 - 98 % [facility] Work Phone: POC HCO3 24.1 mmol/L 21 - 28 mmol/L [facility] Work Phone: POC pCO2 32.7 Low [facility] Work Phone: POC pCO2 Temp NOT REPORTED mm Hg [facility] Work Phone: POC pH 7.477 High [facility] Work Phone: POC pH Temp NOT REPORTED [facility] Work Phone: POC PO2 102.5 [facility] Work Phone: POC pO2 Temp NOT REPORTED mm Hg [facility] Work Phone: Positive Base Excess, Art 1 [employer] [facility] Work Phone: Sample Site Left Radial Artery [employer] Work Phone: TCO2 (calc), Art 25 mmol/L 22 - 29 mmol/L [employer] Work Phone: CBC Auto Differentialon 02-0 -2019 Basophils (Bld) [#/Vol] 0.06 10*3/uL [employer] Work Phone: Basophils/100 WBC (Bld) 1 % 0 - 2 % [employer] [facility] Work Phone: Differential Type NOT REPORTED [employer] Work Phone: Eosinophils (Bld) [#/Vol] 0.37 10*3/uL [employer] Work Phone: Eosinophils/100 WBC (Bld) 6 % High 1 - 4 % [employer] Work Phone: Erythrocyte distribution width (RBC) [Ratio] 13.1 % 11.8 - 14.4 % [employer] Phone: Hematocrit (Bld) [Volume fraction] 29.9 % Low 36.3 - 47.1 % [employer] Phone: Hemoglobin (Bld) [Mass/Vol] 9.8 g/dL Low 11.9 - 15.1 g/dL [employer] Phone: Immature granulocytes (Bld) [#/Vol] 10*3/uL [employer] Phone: Immature granulocytes (Bld) [#/Vol] 0 % 0 [employer] Phone: Interpretation and review of laboratory results Abnormal [employer] Phone: Lymphocytes (Bld) [#/Vol] 2.04 10*3/uL [employer] Phone: Lymphocytes/100 WBC (Bld) 33 % 24 - 43 % [employer] Phone: MCH (RBC) [Entitic mass] 29.2 pg 25.2 - 33.5 pg [employer] Phone: MCHC (RBC) [Mass/Vol] 32.8 g/dL 28.4 - 34.8 g/dL [employer] Phone: MCV (RBC) [Entitic vol] 89.0 fL 82.6 - 102.9 fL [employer] Phone: Monocytes (Bld) [#/Vol] 0.44 10*3/uL [employer] Phone: Monocytes/100 WBC (Bld) 7 % 3 - 12 % [employer] Phone: Platelet mean volume (Bld) [Entitic vol] 8.9 fL 8.1 - 13.5 fL [employer] Phone: Platelets (Bld) [#/Vol] NOT REPORTED [employer] Work Phone: Platelets (Bld) [#/Vol] 309 10*3/uL [employer] Work Phone: RBC (Bld) [#/Vol] 3.36 10*6/uL Low 3.95 - 5.1 1 m/uL [employer] Work Phone: RBC morphology finding Nom (Bld) NOT REPORTED [employer] Work Phone: Segmented neutrophils/100 WBC (Bld) 53 % 36 - 65 % [employer] Work Phone: Segs Absolute 3.34 [employer] Work Phone: WBC (Bld) [#/Vol] 0.0 10*3/uL 0.0 per 10 0 WBC [employer] Phone: WBC (Bld) [#/Vol] 6.3 10*3/uL [employer] Work Phone: WBC Morphology NOT REPORTED [employer] Work Phone: CBC with Diffon 06-25-2019 Abs. Basophil 0.06 k/uL Normal 0.00-0.20 [facility] Comment on above: Performed By: #### C DP, PFA, CP, GLYHGB #### [facility] [place] [id number] Job Coach/Job Developer: Savage Jacob MD Abs.Imm.Granulocyte <0.03 Normal 0.00-0.30 [facility] Comment on above: Performed By: #### C DP, PFA, CP, GLYHGB #### [facility] [place] [id number] Job Coach/Job Developer: Savage Jacob MD Abs.Neutrophil (Seg) 3.34 k/uL Normal 1.50-8.10 [facility] Comment on above: Performed By: #### C DP, PFA, CP, GLYHGB #### [address] [address] Job Coach/Job Developer: Savage Jacob MD Basophils/100 WBC (Bld) 1 % Normal 0-2 [facility] Comment on above: Performed By: #### C DP, PFA, CP, GLYHGB #### [place] [address] Job Coach/Job Developer: Savage Jacob MD Eosinophils (Bld) [#/Vol] 0.37 10*3/uL Normal 0.00-0.44 [facility] Comment on above: Performed By: #### C DP, PFA, CP, GLYHGB #### [place] [address] Job Coach/Job Developer: Savage Jacob MD Eosinophils/100 WBC (Bld) 6 % High 1-4 [facility] Comment on above: Performed By: #### C DP, PFA, CP, GLYHGB #### [place] [address] Job Coach/Job Developer: Savage Jacob MD Erythrocyte distribution width (RBC) [Ratio] 13.1 % Normal 11.8-14.4 [facility] Comment on above: Performed By: #### C DP, PFA, CP, GLYHGB #### [place] [address] Job Coach/Job Developer: Savage Jacob MD Hematocrit (Bld) [Volume fraction] 29.9 % Low 36.3-47.1 [facility] Comment on above: Performed By: #### C DP, PFA, CP, GLYHGB #### [place] [address] Job Coach/Job Developer: Savage Jacob MD Hemoglobin (Bld) [Mass/Vol] 9.8 g/dL Low 11.9-15.1 [facility] Comment on above: Performed By: #### C DP, PFA, CP, GLYHGB #### [address] [address] Job Coach/Job Developer: Savage Jacob MD Immature granulocytes (Bld) [#/Vol] 0 % Normal 0 [facility] Comment on above: Performed By: #### C DP, PFA, CP, GLYHGB #### [place] [address] Job Coach/Job Developer: Savage Jacob MD Lymphocytes (Bld) [#/Vol] 2.04 10*3/uL Normal 1.10-3.70 [facility] Comment on above: Performed By: #### C DP, PFA, CP, GLYHGB #### [place] [address] Job Coach/Job Developer: Savage Jacob MD Lymphocytes/100 WBC (Bld) 33 % Normal 24-43 [facility] Comment on above: Performed By: #### C DP, PFA, CP, GLYHGB #### [place] [address] Job Coach/Job Developer: Savage Jacob MD MCH (RBC) [Entitic mass] 29.2 pg Normal 25.2-33.5 [facility] Comment on above: Performed By: #### C DP, PFA, CP, GLYHGB #### [place] [address] Job Coach/Job Developer: Savage Jacob MD MCHC (RBC) [Mass/Vol] 32.8 g/dL Normal 28.4-34.8 [facility] Comment on above: Performed By: #### C DP, PFA, CP, GLYHGB #### [place] [address] Job Coach/Job Developer: Savage Jacob MD MCV (RBC) [Entitic vol] 89.0 fL Normal 82.6-102.9 [facility] Comment on above: Performed By: #### C DP, PFA, CP, GLYHGB #### [address] [address] Job Coach/Job Developer: Savage Jacob MD Monocytes (Bld) [#/Vol] 0.44 10*3/uL Normal 0.10-1.20 [facility] Comment on above: Performed By: #### C DP, PFA, CP, GLYHGB #### [address] [address] Job Coach/Job Developer: Savage Jacob MD Monocytes/100 WBC (Bld) 7 % Normal 3-12 [facility] Comment on above: Performed By: #### C DP, PFA, CP, GLYHGB #### [address] [address] Job Coach/Job Developer: Savage Jaocb MD Neutrophil (Seg) 53 % Normal 36-65 [facility] Comment on above: Performed By: #### C DP, PFA, CP, GLYHGB #### [address] [address] Job Coach/Job Developer: Savage Jacob MD NRBC Automated 0.0 per 100 WBC Normal 0.0 [facility] Comment on above: Performed By: #### C DP, PFA, CP, GLYHGB #### [place] [address] Job Coach/Job Developer: Savage Jacob MD Platelet mean volume (Bld) [Entitic vol] 8.9 fL Normal 8.1-13.5 [facility] Comment on above: Performed By: #### C DP, PFA, CP, GLYHGB #### [address] [address] Job Coach/Job Developer: Savage Jacob MD Platelets (Bld) [#/Vol] 309 10*3/uL Normal 138-453 [facility] Comment on above: Performed By: #### C DP, PFA, CP, GLYHGB #### [address] [address] Job Coach/Job Developer: Savage Jacob MD RBC (Bld) [#/Vol] 3.36 10*6/uL Low 3.95-5.11 [facility] Comment on above: Performed By: #### C DP, PFA, CP, GLYHGB #### [address] [address] Job Coach/Job Developer: Savage Jacob MD WBC (Bld) [#/Vol] 6.3 10*3/uL Normal 3.5-11.3 [facility] Comment on above: Performed By: #### C DP, PFA, CP, GLYHGB #### [address] [address] Job Coach/Job Developer: Savage Jacob MD Auto Diff Performed NOT REPORTED Normal [facility] Comment on above: Performed By: #### C DP, PFA, CP, GLYHGB #### [address] [address] Job Coach/Job Developer: Savage Jacob MD Platelets (Bld) [#/Vol] NOT REPORTED Normal [facility] Comment on above: Performed By: #### C DP, PFA, CP, GLYHGB #### [address] [address] Job Coach/Job Developer: Savage Jacob MD RBC morphology finding Nom (Bld) NOT REPORTED Normal [facility] Comment on above: Performed By: #### C DP, PFA, CP, GLYHGB #### [address] [address] Job Coach/Job Developer: Savage Jacob MD WBC Morphology NOT REPORTED Normal [facility] Comment on above: Performed By: #### C DP, PFA, CP, GLYHGB #### [address] [address] Job Coach/Job Developer: Savage Jacob MD Comp Metabolic Profon 2019 (cont.) Normal [facility] Comment on above: Result Comment: Aver age GFR for 70 or more years old: 75 mL/min/1.73sq m Chronic Kidney Disease: <60 mL/min/1.73sq m Kidney failure: <15 mL/min/1.73sq m eGFR calculated using average adult body mass. Additional eGFR calculator available at: http://www.Cognea/multiple_crcl_2011.htm Performed By: #### C DP, PFA, CP, GLYHGB #### [address] [address] Job Coach/Job Developer: Savage Jacob MD Albumin [Mass/Vol] 4.7 g/dL Normal 3.5-5.2 [facility] Comment on above: Performed By: #### C DP, PFA, CP, GLYHGB #### [address] [address] Job Coach/Job Developer: Savage Jacob MD Albumin/Globulin [Mass ratio] 1.4 {ratio} Normal 1.0-2.5 [facility] Comment on above: Performed By: #### C DP, PFA, CP, GLYHGB #### [address] [address] Job Coach/Job Developer: Savage Jacob MD Alkaline Phos 70 U/L Normal 35-104 [facility] Comment on above: Performed By: #### C DP, PFA, CP, GLYHGB #### [address] [address] Job Coach/Job Developer: Savage Jacob MD ALT [Catalytic activity/Vol] 9 U/L Normal 5-33 [facility] Comment on above: Performed By: #### C DP, PFA, CP, GLYHGB #### [address] [address] Job Coach/Job Developer: Savage Jacob MD Anion gap [Moles/Vol] 18 mmol/L High 9-17 [facility] Comment on above: Performed By: #### C DP, PFA, CP, GLYHGB #### [facility] [employer] [address] [place] [address] Job Coach/Job Developer: Savage Jacob MD AST [Catalytic activity/Vol] 17 U/L Normal <32 [facility] Comment on above: Performed By: #### C DP, PFA, CP, GLYHGB #### [facility] [employer] [address] [place] [address] Job Coach/Job Developer: Savage Jacob MD Bilirubin Ql (U) 0.24 mg/dL Low 0.3-1.2 [facility] Comment on above: Performed By: #### C DP, PFA, CP, GLYHGB #### [facility] [employer] [address] [place] [address] Job Coach/Job Developer: Savage Jacob MD Calcium [Mass/Vol] 9.8 mg/dL Normal 8.6-10.4 [facility] Comment on above: Performed By: #### C DP, PFA, CP, GLYHGB #### [facility] [employer] [address] [place] [address] Job Coach/Job Developer: Savage Jacob MD Chloride [Moles/Vol] 103 mmol/L Normal 98-107 [facility] Comment on above: Performed By: #### C DP, PFA, CP, GLYHGB #### [facility] [employer] [address] [place] [address] Job Coach/Job Developer: Savage Jacob MD CO2 [Moles/Vol] 21 mmol/L Normal 20-31 [facility] Comment on above: Performed By: #### C DP, PFA, CP, GLYHGB #### [facility] [employer] [address] [place] [id number] Job Coach/Job Developer: Savage Jacob MD Creatinine [Mass/Vol] 1.23 mg/dL High 0.50-0.90 [facility] Comment on above: Performed By: #### C DP, PFA, CP, GLYHGB #### [facility] [address] [place] [address] Job Coach/Job Developer: Savage Jacob MD GFR, Amer 52 mL/min Low >60 [facility] Comment on above: Performed By: #### C DP, PFA, CP, GLYHGB #### [facility] [address] [place] [address] Job Coach/Job Developer: Savage Jacob MD GFR,non Amer 43 mL/min Low >60 [facility] Comment on above: Performed By: #### C DP, PFA, CP, GLYHGB #### [facility] [employer] [address] [place] [address] Job Coach/Job Developer: Savage Jacob MD Glucose [Mass/Vol] 111 mg/dL High 70-99 [facility] Comment on above: Performed By: #### C DP, PFA, CP, GLYHGB #### [facility] [employer] [address] [place] [address] Job Coach/Job Developer: Savage Jacob MD Potassium [Moles/Vol] 4.7 mmol/L Normal 3.7-5.3 [facility] Comment on above: Performed By: #### C DP, PFA, CP, GLYHGB #### [facility] [employer] [address] [place] [address] Job Coach/Job Developer: Savage Jacob MD Protein [Mass/Vol] 8.0 g/dL Normal 6.4-8.3 [facility] Comment on above: Performed By: #### C DP, PFA, CP, GLYHGB #### [facility] [employer] [address] [place] [address] Job Coach/Job Developer: Savage Jacob MD Sodium [Moles/Vol] 142 mmol/L Normal 135-144 [facility] Comment on above: Performed By: #### C DP, PFA, CP, GLYHGB #### [facility] [address] [place] [address] Job Coach/Job Developer: Savage Jacob MD Urea nitrogen [Mass/Vol] 25 mg/dL High 8- [facility] Comment on above: Performed By: #### C DP, PFA, CP, GLYHGB #### [facility] [address] [place] [address] Job Coach/Job Developer: Savage Jacob MD BUN/CRE Ratio NOT REPORTED Normal - [facility] Comment on above: Performed By: #### C DP, PFA, CP, GLYHGB #### [facility] [address] [place] [address] Job Coach/Job Developer: Savage Jacob MD Staging: NOT REPORTED Normal [facility] Comment on above: Performed By: #### C DP, PFA, CP, GLYHGB #### [facility] [address] [place] [address] Job Coach/Job Developer: Savage Jacob MD Comprehensive Metabolic Pane [facility] 06-25-2019 Albumin [Mass/Vol] 4.7 g/dL 3.5 - 5.2 g/dL [employer] Phone: Albumin/Globulin [Mass ratio] 1.4 {ratio} [employer] Phone: ALP [Catalytic activity/Vol] 70 U/L 35 - 104 U/L [employer] Phone: ALT [Catalytic activity/Vol] 9 U/L 5 - 33 U/L [employer] Phone: Anion gap [Moles/Vol] 18 mmol/L High 9 - 17 mmol/L [employer] Phone: AST [Catalytic activity/Vol] 17 U/L <32 [employer] Phone: Bilirubin Ql (U) 0.24 mg/dL Low 0.3 - 1.2 mg/dL [facility] Phone: Bun/Cre Ratio NOT REPORTED [facility] Work Phone: Calcium [Mass/Vol] 9.8 mg/dL 8.6 - 10. 4 mg/dL [facility] Work Phone: Chloride [Moles/Vol] 103 mmol/L 98 - 10 7 mmol/L [facility] Work Phone: CO2 [Moles/Vol] 21 mmol/L 20 - 31 mmol/L [facility] Phone: Creatinine [Mass/Vol] 1.23 mg/dL High 0.5 - 0.9 mg/dL [employer] Phone: GFR 52 mL/min Low >60 [facility] Work Phone: GFR Non- 43 mL/min Low >60 [facility] Work Phone: GFR/1.73 sq M predicted among non-blacks MDRD (S/P/Bld) [Vol rate/Area] NOT REPORTED [facility] Phone: GFR/1.73 sq M predicted among non-blacks MDRD (S/P/Bld) [Vol rate/Area] [facility] Phone: Comment on above: Average GFR for 70 o r more years old: 75 mL/min/1.73sq m Chronic Kidney Disease: <60 mL/min/1.73sq m Kidney failure: <15 mL/min/1.73sq m eGFR calculated using average adult body mass. Additional eGFR calculator available at: http://www.Cognea/multiple_crcl_2012.htm Glucose [Mass/Vol] 111 mg/dL High 70 - 99 mg/dL [facility] [employer] Work Phone: Interpretation and review of laboratory results Abnormal [employer] Phone: Potassium [Moles/Vol] 4.7 mmol/L 3.7 - 5.3 mmol/L [employer] Phone: Protein [Mass/Vol] 8.0 g/dL 6.4 - 8.3 g/dL [employer] Phone: Sodium [Moles/Vol] 142 mmol/L 135 - 144 mmol/L [employer] Phone: Urea nitrogen [Mass/Vol] 25 mg/dL High 8 - 23 mg/dL [employer] Phone: HEMOGLOBIN A1Con 06-25-2019 Glucose [Mass/Vol] 134 mg/dL [employer] Phone: Comment on above: The ADA and AACC rec ommend providing the estimated average glucose result to permit better patient understanding of their HBA1c result. HbA1c (Bld) [Mass fraction] 6.3 % High 4 - 6 % [facility] Phone: Interpretation and review of laboratory results Abnormal [employer] Phone: Hemoglobin A1Con 06-25-2019 HbA1c (Bld) [Mass fraction] 6.3 % High 4.0-6.0 [facility] Comment on above: Performed By: #### C DP, PFA, CP, GLYHGB #### [facility] [address] [place] [id number] Job Coach/Job Developer: Savage Jacob MD HbA1c (Bld) [Mass fraction] 134 mg/dL Normal [facility] Comment on above: Result Comment: The ADA and AACC recommend providing the estimated average glucose result to permit better patient understanding of their HBA1c result. Performed By: #### C DP, PFA, CP, GLYHGB #### [facility] [address] [place] [address] Job Coach/Job Developer: Savage Jacob MD MRSA, DNA, Nasalon 0 Specimen Description .NASAL SWAB Normal [facility] Comment on above: Performed By: #### C DP, PFA, CP, GLYHGB #### [facility] [address] [place] [address] Job Coach/Job Developer: Savage Jacob MD Microscopic Urinalysison Amorphous, UA NOT REPORTED None [employer] Work Phone: Bacteria, UA NOT REPORTED None [employer] Work Phone: Casts UA 0 TO 2 HYALINE Reference range defined for non-centrifuged specimen. [employer] Work Phone: Crystals UA NOT REPORTED None /HPF [facility] Work Phone: Epithelial Cells UA 0 TO 2 [employer] Work Phone: Mucus, UA NOT REPORTED None [employer] Phone: Other Observations UA NOT REPORTED NOT REQ. [facility] Work Phone: RBC (U) [#/Vol] None [employer] Work Phone: Comment on above: Reference range defi zuly for non-centrifuged specimen. Renal Epithelial, Urine NOT REPORTED 0 /HPF [employer] Work Phone: Trichomonas, UA NOT REPORTED None [employer] Work Phone: WBC, UA None [employer] Work Phone: Yeast, UA NOT REPORTED None [employer] Work Phone: - [employer] Work Phone: Otheron 06-25-2019 Stable negative chest. [employer] Phone: EXAMINATION: TWO XRA Y VIEWS OF THE CHEST 06/25/2019 12:58 pm COMPARISON: 05/10/2019 HISTORY: Reason for Exam: pre op CAD FINDINGS: The lungs are without acute focal process. No effusion or pneumothorax. The cardiomediastinal silhouette is normal. 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 [employer] Phone: [place], Mh[employer] Incoming Radiant Results From [employer] - 06/25/2019 2:05 PM EST EXAMINATION: TWO XRAY VIEWS OF THE CHEST 06/25/2019 12:58 pm COMPARISON: 05/10/2019 HISTORY: Reason for Exam: pre op CAD FINDINGS: The lungs are without acute focal process. No effusion or pneumothorax. The cardiomediastinal silhouette is normal. 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 IMPRESSION: Stable negative chest. [employer] Phone: PTon 06-25-2019 INR Coag (PPP) [Relative time] 0.9 {INR} Normal [facility] Comment on above: Result Comment: Therapeutic Range: Moderate Anticoagulant Intensity: INR = 2.0-3.0 High Anticoagulant Intensity: INR = 2.5-3.5 Performed By: #### P T, PTT #### [address] [address] Job Coach/Job Developer: Savage Jacob MD PT Coag (PPP) [Time] 9.8 s Normal 9.0-12.0 [facility] Comment on above: Performed By: #### P T, PTT #### [address] [address] Job Coach/Job Developer: Savage Jacob MD Platelet Functionon 06-25-19 20 Collagen/ADP 142 sec High 67-112 [facility] Comment on above: Performed By: #### C DP, PFA, CP, GLYHGB #### [facility] [employer] [address] [place] [address] Job Coach/Job Developer: Savage Jacob MD Collagen/EPI >300 High 85-172 [facility] Comment on above: Performed By: #### C DP, PFA, CP, GLYHGB #### [address] [address] Job Coach/Job Developer: Savage Jacob MD Interpretation Abnormal platelet function. Normal [facility] Comment on above: Result Comment: Comm on [...] #### C DP, PFA, CP, GLYHGB #### [facility] [address] [place] [address] Job Coach/Job Developer: Savage Jacob MD Platelet function teston SHASHI/EPI Clos Time >300 High [employer] Phone: Collagen Adenosine-5'-Diphospha te (Adp) Time 142 High [employer] Phone: Interpretation and review of laboratory results Abnormal [employer] Phone: Platelet Function Interp Abnormal platelet function. [employer] Phone: Comment on above: Common pattern seen [...] INR Coag (PPP) [Relative time] 0.9 {INR} [employer] Phone: Comment on above: Therapeutic Range: Moderate Anticoagulant Intensity: INR = 2.0-3.0 High Anticoagulant Intensity: INR = 2.5-3.5 PT Coag (PPP) [Time] 9.8 s [employer] Phone: TYPE AND SCREENon 06-25-2019 ABO/Rh Positive [employer] Phone: Arm Band Number [id number] [facility] Work Phone: Expiration Date 07/06/2019,2359 [facility] Work Phone: Type + Screenon 06-25-2019 Type + Screen Sample Expiration 07/06/2019,2359 Arm Band Number [id number] ABO/Rh(D) A POSITIVE Antibody Screen NEGATIVE Normal [facility] Comment on above: Performed By: #### T YS #### [facility] [address] [place] [address] Job Coach/Job Developer: Savage Jacob MD Urinalysison 06-25-2019 Bilirubin Urine Negative NEGATIVE [facility] Work Phone: Color, UA YELLOW YELLOW [facility] Work Phone: Glucose, Ur Negative NEGATIVE [facility] Work Phone: Interpretation and review of laboratory results Abnormal [facility] Work Phone: Ketones Ql (U) Negative NEGATIVE [facility] Work Phone: Leukocyte esterase Test strip Ql (U) Negative NEGATIVE [facility] Work Phone: Nitrite, Urine Negative NEGATIVE [facility] Work Phone: pH, UA 6.5 [facility] Work Phone: Protein (U) [Mass/Vol] TRACE Abnormal NEGATIVE [facility] Work Phone: Specific Mission, UA 1.017 [facility] Work Phone: Turbidity UA CLEAR CLEAR [facility] Work Phone: Urinalysis Comments NOT REPORTED [facility] [employer] Work Phone: Urine Hgb Negative NEGATIVE [facility] Work Phone: Urobilinogen, Urine Normal Normal [facility] Work Phone: Urinalysis, Routineon 2019 Acetoacetic Acid,Ur Negative Normal NEG [facility] Comment on above: Performed By: #### U A, UMICAO #### [address] [address] Job Coach/Job Developer: Savage Jacob MD Bilirubin, SemiQt,Ur Negative Normal NEG [facility] Comment on above: Performed By: #### U A, UMICAO #### [facility] [address] [place] [address] Job Coach/Job Developer: Savage Jacob MD Color (U) YELLOW Normal YEL [facility] Comment on above: Performed By: #### U A, UMICAO #### [address] [address] Job Coach/Job Developer: Savage Jacob MD Glucose Ql (U) Negative Normal NEG [facility] Comment on above: Performed By: #### U A, UMICAO #### [address] [address] Job Coach/Job Developer: Savage Jacob MD Hemoglobin, Ur Negative Normal NEG [facility] Comment on above: Performed By: #### U A, UMICAO #### [address] [address] Job Coach/Job Developer: Savage Jacob MD Leukocyte esterase Test strip Ql (U) Negative Normal NEG [facility] Comment on above: Performed By: #### U A, UMICAO #### [facility] [employer] [address] [place] [address] Job Coach/Job Developer: Savage Jacob MD Nitrite,Ur Negative Normal NEG [facility] Comment on above: Performed By: #### U A, UMICAO #### [facility] [employer] [address] [place] [address] Job Coach/Job Developer: Savage Jacob MD pH (U) 6.5 [pH] Normal 5.0-8.0 [facility] Comment on above: Performed By: #### U A, UMICAO #### [address] [address] Job Coach/Job Developer: Savage Jacob MD Protein Ql (U) TRACE Abnormal NEG [facility] Comment on above: Performed By: #### U A UMICAO #### [address] [address] Job Coach/Job Developer: Savage Jacob MD Specific gravity (U) [Rel density] 1.017 Normal 1.005-1.030 [facility] Comment on above: Performed By: #### U A, UMICAO #### [address] [address] Job Coach/Job Developer: Savage Jacob MD Turbidity CLEAR Normal CLEAR [facility] Comment on above: Performed By: #### U A UMICAO #### [address] [address] Job Coach/Job Developer: Savage Jacob MD Urobilinogen,Ur Normal Normal NORM [facility] Comment on above: Performed By: #### U A, UMICAO #### [address] [address] Job Coach/Job Developer: Savage Jacob MD Comment NOT REPORTED Normal [facility] Comment on above: Performed By: #### U A, UMICAO #### [address] [address] Job Coach/Job Developer: Savage Jacob MD Urinalysis,Microon 0 ----- Normal [facility] Comment on above: Performed By: #### U A, UMICAO #### [address] [address] Job Coach/Job Developer: Savage Jacob MD Casts LM.LPF (Urine sed) [#/Area] 0 TO 2 HYALINE Normal 0-8 [facility] Comment on above: Result Comment: Refe rence range defined for non-centrifuged specimen. Performed By: #### U A, UMICAO #### [address] [address] Job Coach/Job Developer: Savage Jacob MD Epithelial cells LM.HPF (Urine sed) [#/Area] 0 TO 2 Normal 0-5 [facility] Comment on above: Performed By: #### U A, UMICAO #### [address] [address] Job Coach/Job Developer: Savage Jacob MD RBC (U) [#/Vol] None Normal 0-4 [facility] Comment on above: Result Comment: Refe rence range defined for non-centrifuged specimen. Performed By: #### U A, UMICAO #### [address] [address] Job Coach/Job Developer: Savage Jacob MD WBC (U) [#/Vol] None Normal 0-5 [facility] Comment on above: Performed By: #### U A, UMICAO #### [address] [address] Job Coach/Job Developer: Savage Jacob MD Amorphous sediment LM Ql (Urine sed) NOT REPORTED Normal NONE [facility] Comment on above: Performed By: #### U A, UMICAO #### [facility] [address] [place] [address] Job Coach/Job Developer: Savage Jacob MD Bacteria LM.HPF (Urine sed) [#/Area] NOT REPORTED Normal NONE [facility] Comment on above: Performed By: #### U A, UMICAO #### [facility] [address] [place] [address] Job Coach/Job Developer: Savage Jacob MD Crystals LM Nom (Urine sed) NOT REPORTED Normal NONE [facility] Comment on above: Performed By: #### U A, UMICAO #### [address] [address] Job Coach/Job Developer: Savage Jacob MD Epithelial, Renal NOT REPORTED Normal 0 [facility] Comment on above: Performed By: #### U A, UMICAO #### [facility] [address] [place] [id number] Job Coach/Job Developer: Savage Jacob MD Mucus Strands NOT REPORTED Normal NONE [facility] Comment on above: Performed By: #### U A, UMICAO #### [facility] [employer] [address] [place] [id number] Job Coach/Job Developer: Savage Jacob MD Other Observations NOT REPORTED Normal NREQ [facility] Comment on above: Performed By: #### U A, UMICAO #### [facility] [employer] [address] [place] [id number] Job Coach/Job Developer: Savage Jacob MD Trichomonas NOT REPORTED Normal NONE [facility] Comment on above: Performed By: #### U A, UMICAO #### [address] [address] Job Coach/Job Developer: Savage Jacob MD Yeast LM Ql (Urine sed) NOT REPORTED Normal [facility] Comment on above: Performed By: #### U A, UMICAO #### [address] [address] Job Coach/Job Developer: Savage Jacob MD XR CHEST (2 VW)on [...] Kaylen Ying MD 06/25/19 Final result Normal [facility] POC Glucoseon 06-06-2019 Glucose [Mass/Vol] 141 mg/dL High 65 - 99 mg/dL [facility] oHeal Interpretation and review of laboratory results Abnormal [facility] CBC Auto DifferentialOrdered By: Anshul Irizarry on 05-10-2019 Absolute Eos # 0.30 [employer] [facility] Work Phone: Absolute Immature Granulocyte NOT REPORTED [facility] Work Phone: Absolute Lymph # 2.00 [employer] [facility] Work Phone: Absolute Beckham # 0.50 [employer] Work Phone: Basophils (Bld) [#/Vol] 0.10 10*3/uL [employer] Work Phone: Basophils/100 WBC (Bld) 1 % 0 - 2 % [employer] Work Phone: Differential Type YES [employer] [facility] Work Phone: Eosinophils/100 WBC (Bld) 5 % 0 - 5 % [employer] Phone: Erythrocyte distribution width (RBC) [Ratio] 13.4 % 12.1 - 15.2 % [employer] Phone: Hematocrit (Bld) [Volume fraction] 33.0 % Low 36 - 46 % [employer] Work Phone: Hemoglobin (Bld) [Mass/Vol] 11.1 g/dL Low 12 - 16 g/dL [employer] Phone: Immature Granulocytes NOT REPORTED 0 % [facility] Work Phone: Interpretation and review of laboratory results Abnormal [employer] Work Phone: Lymphocytes/100 WBC (Bld) 27 % 15 - 40 % [employer] Work Phone: MCH (RBC) [Entitic mass] 28.8 pg 26 - 34 pg [employer] Phone: MCHC (RBC) [Mass/Vol] 33.5 g/dL 31 - 37 g/dL [facility] Work Phone: MCV (RBC) [Entitic vol] 85.8 fL 80 - 100 fL [facility] [employer] Work Phone: Monocytes/100 WBC (Bld) 7 % 4 - 8 % [facility] [employer] Work Phone: MPV NOT REPORTED 6 - 12 fL [facility] [employer] Work Phone: NRBC Automated NOT REPORTED per 100 WBC [facility] [employer] Work Phone: Platelet Estimate NOT REPORTED [facility] [employer] Work Phone: Platelets (Bld) [#/Vol] 432 10*3/uL [facility] [employer] Work Phone: RBC (Bld) [#/Vol] 3.84 10*6/uL Low 4 - 5.2 m/uL [facility] [employer] Work Phone: RBC morphology finding Nom (Bld) NOT REPORTED [facility] [employer] Work Phone: Segmented neutrophils/100 WBC (Bld) 60 % 47 - 75 % [facility] [employer] Work Phone: Segs Absolute 4.40 [facility] Work Phone: WBC (Bld) [#/Vol] 7.3 10*3/uL [facility] [employer] Work Phone: WBC Morphology NOT REPORTED [employer] [facility] Work Phone: Comprehensive Metabolic Pane lOrdered By: Grayson Hernandez on 05-10-2019 Albumin [Mass/Vol] 5 g/dL 3.5 - 5.2 g/dL [facility] [employer] Work Phone: Albumin/Globulin Ratio NOT REPORTED [facility] [employer] Work Phone: ALP [Catalytic activity/Vol] 99 U/L 35 - 104 U/L [facility] Work Phone: ALT [Catalytic activity/Vol] 9 U/L 5 - 33 U/L [employer] Phone: Anion gap [Moles/Vol] 13 mmol/L 9 - 17 mmol/L [employer] Phone: AST [Catalytic activity/Vol] 14 U/L <32 [employer] Phone: Bilirubin [Mass/Vol] 0.33 mg/dL 0.3 - 1 .2 mg/dL [employer] Phone: Bun/Cre Ratio 17 [employer] Work Phone: Calcium [Mass/Vol] 10.5 mg/dL High 8.6 - 10. 4 mg/dL [employer] Phone: Chloride [Moles/Vol] 103 mmol/L 98 - 10 7 mmol/L [employer] Phone: CO2 [Moles/Vol] 24 mmol/L 20 - 31 mmol/L [employer] Phone: Creatinine [Mass/Vol] 1.33 mg/dL High 0.5 - 0.9 mg/dL [employer] Phone: GFR 48 mL/min Low >60 [employer] Phone: GFR Comment [employer] Phone: Comment on above: Average GFR for 70 o r more years old: 75 mL/min/1.73sq m Chronic Kidney Disease: <60 mL/min/1.73sq m Kidney failure: <15 mL/min/1.73sq m eGFR calculated using average adult body mass. Additional eGFR calculator available at: http://www.MFG.com.[employer]/multiple_crcl_2012.htm GFR Non- 39 mL/min Low >60 [employer] Phone: GFR Staging NOT REPORTED [employer] Work Phone: Glucose [Mass/Vol] 128 mg/dL High 70 - 99 mg/dL [facility] [employer] Phone: Potassium [Moles/Vol] 4.8 mmol/L 3.7 - 5.3 mmol/L [facility] [employer] Phone: Protein [Mass/Vol] 8.6 g/dL High 6.4 - 8.3 g/dL [facility] [employer] Phone: Sodium [Moles/Vol] 140 mmol/L 135 - 144 mmol/L [facility] [employer] Phone: Urea nitrogen [Mass/Vol] 23 mg/dL 8 - 23 mg/dL [facility] [employer] Phone: Hemoglobin [id number] By: Bert Irizarry on 05-10-2019 Glucose [Mass/Vol] 128 mg/dL [facility] [employer] Phone: Comment on above: The ADA and AACC rec ommend providing the estimated average glucose result to permit better patient understanding of their HBA1c result. HbA1c (Bld) [Mass fraction] 6.1 % High 4.8 - 5.9 % [facility] [employer] Phone: Interpretation and review of laboratory results Abnormal [facility] [employer] Phone: Lipid PanelOrdered By: Merrick Hernandez on 05-10-2019 Cholesterol [Mass/Vol] 252 mg/dL High <200 [facility] [employer] Phone: Comment on above: Cholesterol Guidelines: <200 Desirable 200-240 Borderline >240 Undesirable Cholesterol in HDL [Mass/Vol] 113 mg/dL >40 [facility] Phone: Comment on above: HDL Guidelines: <40 Undesirable 40-59 Borderline >59 Desirable Cholesterol in LDL [Mass/Vol] 128 mg/dL 0 - 130 mg/dL [facility] Phone: Comment on above: LDL Guidelines: <100 Desirable 100-129 Near to/above Desirable 130-159 Borderline >159 Undesirable Direct (measured) LDL and calculated LDL are not interchangeable tests. Cholesterol.total/Chol esterol in HDL [Mass ratio] 2.2 {ratio} <5 [employer] Phone: Triglyceride [Mass/Vol] 54 mg/dL <150 [employer] Phone: Comment on above: Triglyceride Guidelines: <150 Desirable 150-199 Borderline 200-499 High >499 Very high Based on AHA Guidelines for fasting triglyceride, February 2012. VLDL NOT REPORTED 1 - 30 mg/dL [employer] [facility] Work Phone: MagnesiumOrdered By: Anshul castillo on 05-10-2019 Interpretation and review of laboratory results Abnormal [employer] Phone: Magnesium [Mass/Vol] 2.9 mg/dL High 1.6 - 2 .6 mg/dL [employer] Phone: No Panel InformationOrdered By: Grayson Hernandez on 05-10-2019 Interpretation and review of laboratory results Abnormal [employer] Phone: Patient Fasting?Ordered By: Grayson Hernandez on 05-10-2019 Patient Fasting? YES [employer] [facility] Work Phone: TSH without ReflexOrdered By : Grayson Hernandez on 05-10-2019 TSH Qn 1.55 m[IU]/L [employer] Phone: Vitamin D 25 HydroxyOrdered By: Anshul Irizarry on 05-10-2019 Vit D, 25-Hydroxy 31.5 ng/mL 30 - 100 ng/mL [employer] Phone: Comment on above: Reference Range: Vitamin D status Range Deficiency <20 ng/mL Mild Deficiency 20-30 ng/mL Sufficiency 30-100 ng/mL Toxicity >100 ng/mL XR CHEST STANDARD (2 VW)Orde red By: Grayson Hernandez on 05-10-2019 No acute cardiopulmonary abnormality. [employer] Phone: EXAM: XR CHEST (2 VW ) HISTORY: R01.1. COMPARISON: None. FINDINGS: Two views are submitted. The lungs and pleural spaces are clear. Pulmonary vascular markings are normal. The cardiomediastinal silhouette is within normal limits. No bony lesions are shown. [employer] Work Phone: [place], Mh[employer] Incoming Radiant Results From [employer] - 05/10/2019 10:43 AM EST EXAM: XR CHEST (2 VW) HISTORY: R01.1. COMPARISON: None. FINDINGS: Two views are submitted. The lungs and pleural spaces are clear. Pulmonary vascular markings are normal. The cardiomediastinal silhouette is within normal limits. No bony lesions are shown. IMPRESSION: No acute cardiopulmonary abnormality. [employer] Work Phone: Vital Signs Date Time Vital Sign Value Performing Clinician Facility 11-06-2024 11:48-0400 Body height 157.5 cm Anshul Irizarry MD Work Phone: [facility] 11-06-2024 11:48-0400 Body mass index (BMI) [Ratio] 25.24 kg/m2 Anshul Irizarry MD Work Phone: [facility] 11-06-2024 11:48-0400 Body weight 62.6 kg Anshul Irizarry MD Work Phone: [facility] 10-16-2024 14:11-0400 Body height 157.48 cm [facility] 10-16-2024 14:11-0400 Body mass index (BMI) [Ratio] 24.2 kg/m2 [facility] 10-16-2024 14:11-0400 Body temperature 97.7 [degF] [facility] 10-16-2024 14:11-0400 Body weight 60.04 kg [facility] 10-16-2024 14:11-0400 Diastolic blood pressure 67 mm[Hg] [facility] 10-16-2024 14:11-0400 Heart rate 55 /min [facility] 10-16-2024 14:11-0400 Respiratory rate 18 /min [facility] 10-16-2024 14:11-0400 SaO2% (BldA) [Mass fraction] 99 % [facility] 10-16-2024 14:11-0400 Systolic blood pressure 107 mm[Hg] [facility] 09-18-2024 16:33-0400 Body height 158.8 cm Grayson Hernandez MD Work Phone: [facility] 09-18-2024 16:33-0400 Body mass index (BMI) [Ratio] 23.22 kg/m2 Grayson Hernandez MD Work Phone: [facility] 09-18-2024 16:33-0400 Body weight 58.51 kg Grayson Hernandez MD Work Phone: [facility] 09-05-2024 14:43-0400 Body height 158.8 cm Grayson Hernandez MD Work Phone: [facility] 09-05-2024 14:43-0400 Body mass index (BMI) [Ratio] 25.38 kg/m2 Grayson Hernandez MD Work Phone: [facility] 09-05-2024 14:43-0400 Body weight 63.96 kg Grayson Hernandez MD Work Phone: [facility] 08-20-2024 15:02-0400 Body height 158.8 cm Grayson Hernandez MD Work Phone: [facility] 08-20-2024 15:02-0400 Body mass index (BMI) [Ratio] 25.38 kg/m2 Grayson Hernandez MD Work Phone: [facility] 08-20-2024 15:02-0400 Body weight 63.96 kg Grayson Hernandez MD Work Phone: [facility] 08-20-2024 15:02-0400 Diastolic blood pressure 70 mm[Hg] Grayson Hernandez MD Work Phone: [facility] 08-20-2024 15:02-0400 Heart rate 71 /min Grayson Hernandez MD Work Phone: [facility] 08-20-2024 15:02-0400 SaO2% (BldA) [Mass fraction] 99 % Grayson Hernandez MD Work Phone: [facility] 08-20-2024 15:02-0400 Systolic blood pressure 112 mm[Hg] Grayson Hernandez MD Work Phone: [facility] 07-06-2024 12:29-0500 Diastolic blood pressure 62 mm[Hg] Dm Agarwal Jr, MD [facility] 07-06-2024 12:29-0500 Systolic blood pressure 92 mm[Hg] Dm Agarwal Jr, MD [facility] 04-30-2024 15:29-0500 Body height 158.8 cm Grayson Hernandez MD Work Phone: [facility] 04-30-2024 15:29-0500 Body mass index (BMI) [Ratio] 25.02 kg/m2 Grayson Hernandez MD Work Phone: [facility] 04-30-2024 15:29-0500 Body weight 63.05 kg Grayson Hernandez MD Work Phone: [facility] 03-08-2024 12:24-0400 Body height 157.48 cm Grayson Hernandez MD Work Phone: [facility] 03-08-2024 12:24-0400 Body mass index (BMI) [Ratio] 23.8 kg/m2 Grayson Hernandez MD Work Phone: [facility] 03-08-2024 12:24-0400 Body temperature 98 [degF] Grayson Hernandez MD Work Phone: [facility] 03-08-2024 12:24-0400 Body weight 59.13 kg Grayson Hernandez MD Work Phone: [facility] 03-08-2024 12:24-0400 Diastolic blood pressure 70 mm[Hg] Grayson Hernandez MD Work Phone: [facility] 03-08-2024 12:24-0400 Heart rate 56 /min Grayson Hernandez MD Work Phone: [facility] 03-08-2024 12:24-0400 Respiratory rate 6 /min Grayson Hernandez MD Work Phone: [facility] 03-08-2024 12:24-0400 SaO2% (BldA) [Mass fraction] 100 % Grayson Hernandez MD Work Phone: [facility] 03-08-2024 12:24-0400 Systolic blood pressure 145 mm[Hg] Grayson Hernandez MD Work Phone: [facility] 02-21-2024 15:40-0400 Body height 158.8 cm Grayson Hernandez MD Work Phone: [facility] 02-21-2024 15:40-0400 Body mass index (BMI) [Ratio] 25.02 kg/m2 Grayson Hernandez MD Work Phone: [facility] 02-21-2024 15:40-0400 Body weight 63.05 kg Grayson Hernandez MD Work Phone: [facility] 09-27-2023 11:40-0400 Diastolic blood pressure 70 mm[Hg] Anshul Irizarry MD Work Phone: [facility] [employer] 09-27-2023 11:40-0400 Heart rate 82 /min Anshul Irizarry MD Work Phone: [facility] [employer] 09-27-2023 11:40-0400 Systolic blood pressure 176 mm[Hg] Anshul Irizarry MD Work Phone: [facility] [employer] 09-01-2023 14:45-0400 Diastolic blood pressure 39 mm[Hg] Matty Martinez MD Work Phone: [employer] [facility] 09-01-2023 14:45-0400 Heart rate 57 /min Matty Martinez MD Work Phone: [facility] [employer] 09-01-2023 14:45-0400 Respiratory rate 16 /min Matty Martinez MD Work Phone: [facility] [employer] 09-01-2023 14:45-0400 SaO2% (BldA) [Mass fraction] 95 % Matty Martinez MD Work Phone: [facility] [employer] 09-01-2023 14:45-0400 Systolic blood pressure 127 mm[Hg] Matty Martinez MD Work Phone: [facility] 09-01-2023 14:10-0400 Body temperature 96.8 [degF] Matty Martinez MD Work Phone: [facility] 07-17-2022 10:10-0500 Body height 160.02 cm [place]pe Woods Other [employer] Other 07-17-2022 10:10-0500 Body mass index (BMI) [Ratio] 29.05 kg/m2 Flores [place]ault Other [employer] Other 07-17-2022 10:10-0500 Body temperature 98.2 [degF] Flores [place] Other [employer] Other 07-17-2022 10:10-0500 Body weight 74.39 kg Flores Woods Other [employer] Other 07-17-2022 10:10-0500 Respiratory rate 18 /min Flores [place]ault Other [employer] Other 07-17-2022 10:10-0500 SaO2% (BldA) [Mass fraction] 92 % Flores Woods Other [employer] Other 07-24-2019 11:11-0500 Body Temperature 98.1 [degF] Caro KUBOO [facility] [place] [place] 07-24-2019 11:11-0500 BP Diastolic 55 mm[Hg] Caro KUBOO [facility] [place] 07-24-2019 11:11-0500 BP Systolic 138 mm[Hg] Caro Teresa [employer] [place] , [place] 07-24-2019 11:11-0500 Pulse (Heart Rate) 50 /min Caro Teresa [facility] [place], [place] 07-24-2019 11:11-0500 Respiratory Rate 20 /min [facility] [place] 07-24-2019 04:00-0500 Pulse Oximetry 98 % Caro Teresa [employer] [facility], [place] 07-22-2019 06:00-0500 BMI (Body Mass Index) 32.14 kg/m2 Caro Teresa [employer] [place], [place] 07-22-2019 06:00-0500 Body weight 79.7 kg Caro Teresa [employer] [facility], [place] 07-11-2019 07:45-0500 Height 157.5 cm Caro Teresa [employer] [facility], [place] 06-25-2019 12:17-0500 Pulse Oximetry 98 % [facility] [employer] Phone: 06-25-2019 12:17-0500 Respiratory Rate 20 /min [facility] [employer] Phone: 06-25-2019 11:29-0500 BMI (Body Mass Index) 26.89 kg/m2 [facility] [employer] Phone: 06-25-2019 11:29-0500 Body Temperature 98.2 [degF] [facility] [employer] Phone: 06-25-2019 11:29-0500 Body weight 66.68 kg [facility] [employer] Phone: 06-25-2019 11:29-0500 BP Diastolic 74 mm[Hg] [facility] [employer] Phone: 06-25-2019 11:29-0500 BP Systolic 161 mm[Hg] [facility] [employer] Phone: 06-25-2019 11:29-0500 Height 157.5 cm [facility] [employer] Phone: 06-25-2019 11:29-0500 Pulse (Heart Rate) 76 /min [facility] 1 [facility] Work Phone: 06-06-2019 15:03-0500 BP Diastolic 72 mm[Hg] [facility] 06-06-2019 15:03-0500 BP Systolic 132 mm[Hg] [facility] 06-06-2019 15:03-0500 Pulse (Heart Rate) 70 /min [facility] 06-06-2019 15:03-0500 Pulse Oximetry 99 % [facility] 06-06-2019 08:40-0500 BMI (Body Mass Index) 25.97 kg/m2 [facility] 06-06-2019 08:40-0500 Body weight 64.41 kg [facility] 06-06-2019 08:40-0500 Height 157.5 cm [facility] 06-06-2019 08:05-0500 Body Temperature 98.6 [degF] [facility] 06-06-2019 08:05-0500 Respiratory Rate 14 /min [facility] Encounters Encounter Date Encounter Type Care Provider Facility Start: 01-07-2025 End: 01-07-2025 ambulatory Shannen Velazquez RN Work Phone: [facility] Start: 11-15-2024 End: 11-15-2024 Clinisync Result Encounter Generic External Data Provider [facility] External [facility] Unsolicited Start: 11-15-2024 End: 11-15-2024 Clinisync Result Encounter Generic External Data Provider [facility] External [facility] Unsolicited Start: 11-15-2024 End: 11-15-2024 ambulatory KEERTHI PATEL [facility] Start: 11-15-2024 End: 11-15-2024 Subsequent hospital visit by physician Grayson Hernandez MD Work Phone: [facility] Comment on above: Hypermagnesemia Start: 11-06-2024 End: 11-06-2024 Clinisync Result Encounter Generic External Data Provider [facility] External [facility] Unsolicited Start: 11-06-2024 End: 11-06-2024 Clinisync Result Encounter Generic External Data Provider [facility] External [facility] Unsolicited Start: 11-06-2024 End: 11-08-2024 ambulatory [facility] Start: 11-06-2024 End: 11-08-2024 Subsequent hospital visit by physician Anshul Irizarry MD Work Phone: [facility] Comment on above: Mitral valve stenosi s, unspecified etiology Start: 11-05-2024 End: 11-05-2024 Bamboo flowspatrice Gasca MD Work Phone: [facility] Start: 11-05-2024 End: 11-05-2024 Bammeg Gasca MD Work Phone: [facility] Start: 11-05-2024 End: 11-05-2024 Office outpatient visit 15 minutes Jorge Luis Gasca MD Work Phone: [facility] Comment on above: Seborrheic keratosis (Primary Dx); History of basal cell carcinoma; Lentigines; Other seborrheic dermatitis Start: 11-05-2024 End: 11-05-2024 ambulatory JORGE LUIS GASCA Not Available Start: 10-16-2024 End: 10-16-2024 ambulatory [facility] Work Phone: Start: 10-16-2024 End: 10-16-2024 Patient encounter procedure [facility] Work Phone: Start: 10-08-2024 Non-patient / Non-visit [facility] Work Phone: Start: 10-08-2024 End: 10-08-2024 Clinisync Result Encounter Generic External Data Provider [facility] External Department Unsolicited Start: 10-08-2024 End: 10-08-2024 Clinisync Result Encounter Generic External Data Provider [facility] External [facility] Unsolicited Start: 10-05-2024 End: 10-06-2024 Yaneli Velazquez RN Work Phone: [facility] Comment on above: Anxiety associated w ith depression (Primary Dx); Primary hypertension ([facility]); Chronic diastolic congestive heart failure, NYHA class 1 ([facility]); Edema, unspecified type; Acquired hypothyroidism ([facility]) Start: 10-01-2024 End: 10-01-2024 Telephone encounter Roshan Mayfield PT Work Phone: [facility] Comment on above: re: PT Recommendatio n (Call Back requested); FU (Home health contacted.) Home Health Start: 09-26-2024 End: 09-26-2024 ambulatory Roshan T April PT Work Phone: [facility] Comment on above: Generalized weakness (Primary Dx); Frequent falls Start: 09-26-2024 End: 09-26-2024 Bamboo flowsheet Roshan Mayfield PT Work Phone: [facility] Start: 09-26-2024 End: 09-26-2024 [employer] flowsheet Roshan Mayfield PT Work Phone: [facility] Start: 09-18-2024 End: 09-18-2024 Office outpatient visit 15 minutes Grayson Hernandez MD Work Phone: [facility] 100 Comment on above: Generalized weakness ; Frequent falls; History of falling; Polypharmacy; Type 2 diabetes mellitus with hyperglycemia, without long-term current use of insulin ([facility]); BMI 23.0-23.9, adult Start: 09-18-2024 End: 09-18-2024 ambulatory GRAYSON HERNANDEZ Not Available Start: 09-05-2024 End: 09-05-2024 ambulatory GRAYSON HERNANDEZ Not Available Start: 09-05-2024 End: 09-05-2024 Office outpatient visit 25 minutes Grayson Hernandez MD Work Phone: [facility] Comment on above: Acute bacterial conj unctivitis of both eyes (Primary Dx); Laceration of scalp, subsequent encounter; Fall from standing, subsequent encounter; Closed fracture of nasal bone with routine healing, subsequent encounter; Encounter for examination following treatment at hospital; Encounter for staple removal; Polypharmacy; Overweight (BMI 25.0-29.9); Acute conjunctivitis, unspecified acute conjunctivitis type, unspecified laterality Start: 09-05-2024 End: 09-05-2024 Bamboo loulou Hernandez MD Work Phone: [facility] Start: 09-05-2024 End: 09-05-2024 Bamboo flowspatrice Hernandez MD Work Phone: [facility] Start: 09-03-2024 End: 09-03-2024 Telephone encounter Shannen Velazquez RN Work Phone: [facility] Comment on above: Med Refill Start: 08-20-2024 End: 08-20-2024 Office outpatient visit 25 minutes Grayson Hernandez MD Work Phone: [facility] Comment on above: Primary hypertension (CMS/[facility]) (Primary Dx); Chronic diastolic congestive heart failure, NYHA class 1 (CMS/HCC); Mixed hyperlipidemia (CMS/HCC) ; Hypokalemia; Hypomagnesemia; Type 2 diabetes mellitus with stage 4 chronic kidney disease, without long-term current use of insulin (CMS/HCC); Type 2 diabetes mellitus with hyperglycemia, without long-term current use of insulin (CMS/[facility]); Polypharmacy; Edema, unspecified type Start: 08-20-2024 End: 08-20-2024 ambulatory GRAYSON HERNANDEZ Not Available Start: 08-20-2024 End: 08-20-2024 Bamboo flowspatrice Hernandez [...] minutes Dm Agarwal Jr Work Phone: [facility] Start: 07-06-2024 ambulatory Dm Agarwal Jr [facility] Start: 06-15-2024 End: 06-15-2024 Clinisync Result Encounter [...] encounter procedure Grayson Hernandez MD Work Phone: [facility] [place] Work Phone: Start: 04-10-2024 End: 04-10-2024 ambulatory Grayson Hernandez MD Work Phone: [facility] Work Phone: Start: 04-10-2024 End: 04-11-2024 ambulatory Grayson Hernandez MD Work Phone: [facility] Work Phone: Start: 04-10-2024 End: 04-11-2024 Patient encounter procedure Grayson Hernandez MD Work Phone: [facility] [place] Work Phone: Start: 03-08-2024 End: 03-08-2024 Patient encounter procedure Grayson Hernandez MD Work Phone: [facility] Nephrology Roxie Work Phone: Start: 02-21-2024 End: [...] 11-08-2023 ambulatory GRAYSON HERNANDEZ Not Available Start: 09-27-2023 End: 09-29-2023 Subsequent hospital visit by physician Anshul Irizarry MD Work Phone: [facility] Nuclear Medicine Comment on above: SOB (shortness of br eath) Arrived Start: 09-01-2023 End: 09-04-2023 ambulatory ANSHUL IRIZARRY [facility] Start: 09-01-2023 End: 09-01-2023 Subsequent hospital visit by physician Matty Martinez MD Work Phone: [facility] Cardiac Cath/IR Lab Comment on above: Chronic a-fib (HCC) Start: 07-07-2023 End: 07-07-2023 May Chanell Wiseman Work Phone: MELINDA [place]oss[place] Start: 07-04-2023 Telephone encounter Portia Osorio [facility] Start: 07-01-2023 Refill Shannen Barrett on RN Work Phone: [facility] Comment on above: Diastolic congestive heart failure, NYHA class 1, unspecified congestive heart failure chronicity ([facility]/HCC) Start: 05-30-2023 Telephone encounter Alma Hankins RN [facility] Comment on above: follow up appointaustin t Start: 07-25-2022 End: 07-25-2022 ambulatory MANISHA ARRIAGA Facility:[facility]1 Start: 07-17-2022 End: 07-17-2022 ambulatory Flores Woods Other [employer] Other Start: 07-17-2022 Office outpatient vi sit 15 minutes Flores Woods [facility] Start: 06-23-2022 End: 06-23-2022 Connie Moctezuma Work Phone: MELINDA Faustin Start: 03-16-[address] GRAYSON HERNANDEZ . Fac ility:[facility]1 Start: 12-30-2021 End: 12-31-[address] ABHI BECERRIL Facility:[facility] Start: 12-16-2021 End: 12-17-[address] GRAYSON HERNANDEZ . Facility:[facility] Start: 12-10-2021 End: 12-11-[address] GRAYSON HERNANDEZ . Facility:[facility] Start: 09-07-2021 End: 09-07-2021 Subsequent hospital visit by physician [facility] EKG Comment on above: Palpitations Start: 08-17-2021 End: 08-18-[address] GRAYSON HERNANDEZ . Facility:[facility] Start: 08-11-2021 End: 08-13-2021 ambulatory ALIYAH ROACH . Facility:[facility] Start: 06-22-2021 End: 06-22-2021 ambulatory Martha Rendon Other [facility] Other Start: 06-22-2021 Office outpatient vi sit 25 minutes Martha Rendon [facility] Start: 05-12-2021 End: 05-12-2021 Naveen Decker Work Phone: SANDYDaniele Faustin Start: 06-28-2020 End: 06-28-2020 Orders Only Brynn Bermeo Work Phone: [facility] Start: 04-23-2020 End: 04-23-2020 Naveen Decker Work Phone: MELINDA Faustin Start: 02-25-2020 End: 02-25-2020 Subsequent hospital visit by physician Grayson [facility] EKG Comment on above: Kidney insufficiency ; Hypertension, unspecified type; Shortness of breath; Hyperlipidemia, unspecified hyperlipidemia type; Vitamin D deficiency disease; Other specified diabetes mellitus with other specified complication, unspecified whether chcf insulin use (HCC) Start: 10-05-2019 End: 10-05-2019 Subsequent hospital visit by physician Grayson [facility] Comment on above: Aortic valve stenosi s, etiology of cardiac valve disease unspecified; Shortness of breath; Hypertension, unspecified type; Hyperlipidemia, unspecified hyperlipidemia type; Vitamin D deficiency disease Start: 08-02-2019 ambulatory UNKNOWN PROVIDER Facili ty:[facility] Start: 07-03-2019 End: 07-24-2019 Evaluation and management of inpatient CARO TERESA [facility] Start: 07-03-2019 End: 07-24-2019 Evaluation and management of inpatient Caro Teresa Work Phone: [facility] Start: 06-29-2019 End: 07-01-2019 Subsequent hospital visit by physician [facility] CT Scan Comment on above: CAD, multiple vessel ; Pre-op testing CAD, multiple vessel ; Pre-op testing; Bilateral carotid bruits Start: 06-27-2019 End: 06-28-2019 Patient encounter procedure VASILIY GARCIA [facility] Start: 06-27-2019 End: 06-27-2019 Subsequent hospital visit by physician Xavier [address] [facility] Echo Comment on above: Arrived Start: 06-25-2019 End: 06-29-2019 Patient encounter procedure CARO TERESA [facility] Start: 06-25-2019 End: 06-29-2019 Subsequent hospital visit by physician Xavier 2 [facility] Radiology Comment on above: Arrived Start: 06-06-2019 End: 06-06-2019 Patient encounter procedure TASIA [facility] Start: 06-06-2019 End: 06-06-2019 Subsequent [facility] Start: 05-29-2019 Patient encounter procedure [facility] Start: 05-25-2019 Patient encounter procedure [facility] Start: 05-10-2019 End: 05-12-2019 Subsequent hospital visit by physician Grayson Hernandez MD Other Phone: [facility] RESPIRATORY THERAPY Comment on above: Hypertension, unspec ified type; Hyperlipidemia, unspecified hyperlipidemia type; Other specified diabetes mellitus with other specified complication, 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); Vitamin D deficiency disease Systolic murmur; Moderate mitral regurgitation; Severe aortic stenosis Start: 04-18-2019 End: 04-18-2019 Naveen Decker Work Phone: MELINDA Braxtony Start: 04-19-2018 End: 04-19-2018 Naveen Decker Work Phone: SANDYA Kay Start: 01-19-2017 End: 01-19-2017 Naveen Decker Work Phone: [facility] Start: 11-03-2015 End: 11-03-2015 Naveen Decker Work Phone: MELINDA Kay Start: 11-04-2014 End: 11-04-2014 Mariela Smith Work Phone: [facility] Start: 10-29-2013 End: 10-29-2013 Mariela Smith Work Phone: [facility] Start: 10-20-2012 End: 10-20-2012 Mariela Smith Work Phone: MELINDA Faustin Start: 08-16-2011 End: 08-16-2011 Mariela Smith Work Phone: MELINDA Faustin Start: 04-26-2011 End: 04-26-2011 Mariela Smith Work Phone: MELINDA Faustin Procedures Date Procedure Procedure Detail Performing Clinician Start: 11-15-2024 ALL MAGNESIUM Generic External Lusi a Provider Start: 11-15-2024 Assay of magnesium Keerthi Patel 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 Work Phone: Start: 11-06-2024 ECG 12-LEAD Generic External Luis a Provider Start: 11-06-2024 ALL CBC WITH AUTO DIFF Generic External Data Provider Start: 11-06-2024 Echo tthrc r-t 2d w/wom-mode compl spec&colr d Anshul Irizarry MD Work Phone: Start: 10-08-2024 HMHP CBC WITH PLATELET NO DIFFERENTIAL Generic External Data Provider Start: 07-06-2024 End: 07-06-2024 Computerized ophthalmic imaging retina Dm Agarwal Jr Start: 06-15-2024 ALL BASIC METABOLIC PANEL Grayson walters MD Work Phone: Start: 05-02-2024 ALL CBC WITH AUTO DIFF Generic External Data Provider Start: 04-10-2024 Ultrasonography of bilateral kidneys Grayson Hernandez MD Work Phone: Start: 09-27-2023 Myocardial spect multiple studies Anshul Irizarry MD Work Phone: Start: 07-07-2023 End: 07-07-2023 Computerized ophthalmic imaging retina Dm Agarwal Jr, MD Start: 10-25-2022 History of coronary artery bypass grafting Hx of CABG Shannen Velazquez RN Work Phone: Start: 06-23-2022 End: 06-23-2022 Computerized ophthalmic imaging retina Dm Agarwal Jr, MD Start: 01-13-2022 Adult depression screening assessment Alma Hankins RN Start: 05-26-2021 Mammography Shannen Velazquez RN Work Phone: Start: 05-12-2021 End: 05-12-2021 Computerized ophthalmic imaging retina Dm Agarwal Jr, MD Start: 01-07-2021 Colonoscopy Shannen Velazquez RN Work Phone: Start: 04-23-2020 End: 04-23-2020 Computerized ophthalmic imaging retina Dm Agarwal Jr, MD Start: 07-24-2019 BIPAP CARO DIBARDINO Start: 07-24-2019 DIETARY NUTRITION SUPPLEMENTS CARO CORNELIA ARDINO Start: 07-24-2019 Glucose blood reagent strip CARO DIBAR PATRICIA Start: 07-24-2019 BIPAP CARO DIBARDINO Start: 07-24-2019 Glucose blood reagent strip Caro Dibar patricia Work Phone: Start: 07-24-2019 DISCHARGE PATIENT CARO LOCKEARDINO Start: 07-24-2019 BIPAP CARO DIBARDINO Start: 07-24-2019 INITIATE OXYGEN THERAPY PROTOCOL CARO LOCKEARDINO Start: 07-24-2019 Glucose blood reagent strip CARO [...] Start: 07-24-2019 STRICT INTAKE AND OUTPUT CARO LOCKEARDIN O Start: 07-24-2019 INTAKE AND OUTPUT CARO [...] Start: 07-23-2019 BIPAP CARO DIBARDINO Start: 07-23-2019 INITIATE OXYGEN THERAPY PROTOCOL CARO LOCKEARDINO Start: 07-23-2019 Comprehensive metabolic panel CARO FARNSWORTHDINO Start: 07-23-2019 Glucose blood reagent strip CARO DIBAR PATRICIA Start: 07-23-2019 Assay of magnesium CARO LOCKEARDINO Start: 07-23-2019 Assay of phosphorus inorganic CARO LOCKE ARDINO Start: 07-23-2019 Basic metabolic panel calcium total CARO LOCKEARDINO Start: 07-23-2019 Blood count complete automated CARO ZHONG BARDINO Start: 07-23-2019 Prothrombin time CARO LOCKEARDINO Start: 07-23-2019 Thromboplastin time partial plasma/whole blood CARO LOCKEARDINO Start: 07-23-2019 BASIC METABOLIC PANEL W/ REFLEX TO MG FOR LOW K Kanwal Avula Work Phone: Start: 07-23-2019 Glucose blood reagent strip Caro Lockear patricia Work Phone: Start: 07-23-2019 Assay of magnesium Caro Lockeardino Work Phone: Start: 07-23-2019 Assay of phosphorus inorganic Caro farnsworthdino Work Phone: Start: 07-23-2019 Basic metabolic panel calcium total Caro Wrayno Work Phone: Start: 07-23-2019 Blood count complete automated Caro Storey Work Phone: Start: 07-23-2019 Prothrombin time Caro Wrayno Work Phone: Start: 07-23-2019 Thromboplastin time partial plasma/whole blood Caro Lockeardino Work Phone: Start: 07-23-2019 BIPAP CARO DIBARDINO Start: 07-23-2019 STRICT INTAKE AND OUTPUT CARO DIBARDIN O Start: 07-23-2019 INTAKE AND OUTPUT CARO DIBARDINO Start: 07-23-2019 BIPAP CARO DIBARDINO Start: 07-22-2019 Potassium serum plasma/whole blood CARO LOCKEARDINO Start: 07-22-2019 Glucose blood reagent strip CARO DIBAR PATRICIA Start: 07-22-2019 BIPAP CARO DIBARDINO Start: 07-22-2019 Potassium serum plasma/whole blood Caro Lockeardino Work Phone: Start: 07-22-2019 Glucose blood reagent strip Caro Lockear patricia Work Phone: Start: 07-22-2019 BIPAP CARO DIBARDINO Start: 07-22-2019 BIPAP CARO DIBARDINO Start: 07-22-2019 Glucose blood reagent strip CARO DIBAR PATRICIA Start: 07-22-2019 GLASS ROBOT OPERATOR CLINICAL BEDSIDE SWALLOW EVALUATION AND TREATMENT CARO LOCKEARDINO Start: 07-22-2019 GLASS ROBOT OPERATOR EVAL AND TREAT CARO LOCKEARDINO Start: 07-22-2019 Glucose blood reagent strip Caro Dibar patricia Work Phone: Start: 07-22-2019 Speech and language therapy regime Kanwal Avula Work Phone: Start: 07-22-2019 BIPAP CARO DIBARDINO Start: 07-22-2019 INITIATE OXYGEN THERAPY PROTOCOL CARO LOCKEARDINO Start: 07-22-2019 Glucose blood reagent strip CARO DIBAR PATRICIA Start: 07-22-2019 Ecg routine ecg w/least 12 lds w/i&r CARO DIBARDINO Start: 07-22-2019 EKG REPORT CARO DIBARDINO Start: 07-22-2019 End: 07-22-2019 Glucose blood reagent strip Caro farleyo Work Phone: Start: 07-22-2019 Ecg routine ecg w/least 12 lds w/i&r Nuha Coronel Work Phone: Start: 07-22-2019 EKG REPORT Hpf Scanning Start: 07-22-2019 Assay of magnesium CARO DIBARDINO Start: 07-22-2019 Basic metabolic panel calcium total CARO DIBARDINO Start: 07-22-2019 Blood count complete automated CARO DI BARDINO Start: 07-22-2019 Prothrombin time CARO DIBARDINO Start: 07-22-2019 Thromboplastin time partial plasma/whole blood CARO DIBARDINO Start: 07-22-2019 BIPAP CARO DIBARDINO Start: 07-22-2019 Assay of magnesium Caro Dibardino Work Phone: Start: 07-22-2019 Basic metabolic panel calcium total Caro Dibardino Work Phone: Start: 07-22-2019 Blood count complete automated Caro Estevezino Work Phone: Start: 07-22-2019 Prothrombin time Caro Dibardino Work Phone: Start: 07-22-2019 Thromboplastin time partial [...] hemoglobin CARO DIBARDINO Start: 07-21-2019 Calcium ionized CARO DIBARDINO Start: 07-21-2019 Chloride other source CARO DIBARDINO Start: 07-21-2019 CREATININE W/GFR POINT OF CARE CARO STOREY Start: 07-21-2019 Gluc bld gluc mntr dev cleared fda spec home use CARO LOCKEARDINO Start: 07-21-2019 LACTIC ACID,POINT OF CARE CARO LOCKEARDI NO Start: 07-21-2019 Potassium serum plasma/whole blood CARO DIBARDINO Start: 07-21-2019 Sodium serum plasma or whole blood CARO DIBARDINO Start: 07-21-2019 ABG DRAW CARO DIBARDINO Start: 07-21-2019 Thromboplastin time partial plasma/whole blood CARO DIBARDINO Start: 07-21-2019 Radiologic exam chest single view Jaimee Arellano Work Phone: Start: 07-21-2019 ANION GAP (CALC) POC Caro Corneliaardino Work Phone: Start: 07-21-2019 ARTERIAL BLOOD GAS, POC Caro Corneliaardino Work Phone: Start: 07-21-2019 Blood count hemoglobin Caro Corneliatdno Work Phone: Start: 07-21-2019 CALCIUM, IONIC (POC) Caro Corneliaardino Work Phone: Start: 07-21-2019 Chloride [Moles/Vol] Caro Corneliaardino Work Phone: Start: 07-21-2019 CREATININE W/GFR POINT OF CARE Caro Storey Work Phone: Start: 07-21-2019 Gluc bld gluc mntr dev cleared fda spec home use Caro Lockeardino Work Phone: Start: 07-21-2019 LACTIC ACID,POINT OF CARE Caro Lockeardi no Work Phone: Start: 07-21-2019 Potassium [Moles/Vol] Caro Dibardino Work Phone: Start: 07-21-2019 Sodium [Moles/Vol] Caro Dibardino Work Phone: Start: 07-21-2019 ABG DRAW Caro Corneliaardino Work Phone: Start: 07-21-2019 Thromboplastin time partial [...] Start: 07-21-2019 Glucose blood reagent strip CARO SMALLWOOD PATRICIA Start: 07-20-2019 Glucose blood reagent strip Caro Smallwood patricia Work Phone: Start: 07-20-2019 Glucose blood reagent strip Caro Smallwood patricia Work Phone: Start: 07-20-2019 Glucose blood reagent strip CARO LOCKEAR PATRICIA Start: 07-20-2019 Radiologic exam abdomen 1 view CARO STOREY Start: 07-20-2019 Glucose blood reagent strip Caro Smallwood patricia Work Phone: Start: 07-20-2019 Radiologic exam abdomen 1 view Rodrigo kuhn Work Phone: Start: 07-20-2019 Glucose blood reagent strip CARO SMALLWOOD PATRICIA Start: 07-20-2019 TRANSFER PATIENT CARO TERESA Start: 07-20-2019 IP CONSULT TO INTERNAL MEDICINE CARO GILL Start: 07-20-2019 NASOGASTRIC TUBE INSERTION CARO NAKUL ANDINO Start: 07-20-2019 Glucose blood reagent strip Caro Smallwood patricia Work Phone: Start: 07-20-2019 INITIATE OXYGEN THERAPY PROTOCOL CARO TERESA Start: 07-20-2019 GLASS ROBOT OPERATOR CLINICAL BEDSIDE SWALLOW EVALUATION AND TREATMENT CARO WRAYMOLLY Start: 07-20-2019 PT EVAL AND TREAT CARO TERESA Start: 07-20-2019 Assay of magnesium CARO WRAYMOLLY Start: 07-20-2019 Assay of phosphorus inorganic CARO FARNSWORTHDINO Start: 07-20-2019 Basic metabolic panel calcium total CARO TERESA Start: 07-20-2019 Blood count complete automated CARO STOREY Start: 07-20-2019 Prothrombin time CARO TERESA Start: 07-20-2019 Thromboplastin time partial plasma/whole blood CARO WRAYNO Start: 07-20-2019 Ecg routine ecg w/least 12 lds w/i&r CARO LOCKEMANUEL Start: 07-20-2019 EKG REPORT CARO LCOKEMANUEL Start: 07-20-2019 Glucose blood reagent strip CARO SMALLWOOD PATRICIA Start: 07-20-2019 Assay of magnesium Caro Lockemanuel Work Phone: Start: 07-20-2019 Assay of phosphorus inorganic Caro lyncho Work Phone: Start: 07-20-2019 Basic metabolic panel calcium total Caro Teresa Work Phone: Start: 07-20-2019 Blood count complete automated Caro Storey Work Phone: Start: 07-20-2019 Prothrombin time Caro Teresa Work Phone: Start: 07-20-2019 Thromboplastin time partial plasma/whole blood Caro Lockemanuel Work Phone: Start: 07-20-2019 Ecg routine ecg w/least 12 lds i&r only Nuha Coronel Work Phone: Start: 07-20-2019 EKG REPORT Hpf Scanning Start: 07-20-2019 Glucose blood reagent strip Caro Smallwood patricia Work Phone: Start: 07-20-2019 Thromboplastin time partial plasma/whole blood CARO CORNELIAMANUEL Start: 07-20-2019 STRICT INTAKE AND OUTPUT CARO LOCKETDN O Start: 07-20-2019 INTAKE AND OUTPUT CARO LOCKETDNO Start: 07-20-2019 Thromboplastin time partial plasma/whole blood Caro Dibmanuel Work Phone: Start: 07-19-2019 Glucose blood reagent strip CARO LOCKEJAVAD PATRICIA Start: 07-19-2019 Thromboplastin time partial plasma/whole blood CARO CORNELIATDNO Start: 07-19-2019 Antibody screen Caro Teersa Start: 07-19-2019 Glucose blood reagent strip Caro Lockear patricia Work Phone: Start: 07-19-2019 Thromboplastin time partial plasma/whole blood Caro Corneliatdno Work Phone: Start: 07-19-2019 Glucose blood reagent strip CARO CORNELIAAR PATRICIA Start: 07-19-2019 AMB EXTERNAL REFERRAL TO CARDIAC REHAB CARO TERESA Start: 07-19-2019 Radiologic exam chest single view CARO TERESA Start: 07-19-2019 Glucose blood reagent strip Caro Lockear patricia Work Phone: Start: 07-19-2019 EXTUBATION CARO DIBARDINO Start: 07-19-2019 Radiologic exam chest single view Vasiliy Garcia Work Phone: Start: 07-19-2019 EXTUBATION Donovan K Rajesh Work Phone: Start: 07-19-2019 Thromboplastin time partial plasma/whole blood CARO DIBARDINO Start: 07-19-2019 Glucose blood reagent strip CARO LOCKEAR PATRICIA Start: 07-19-2019 Thromboplastin time partial plasma/whole blood Vasiliy Garcia Work Phone: Start: 07-19-2019 Glucose blood reagent strip Caro Dibar patricia Work Phone: Start: 07-19-2019 Radiologic exam abdomen 1 view CARO ZHONG INO Start: 07-19-2019 INITIATE OXYGEN THERAPY PROTOCOL CARO LOCKEARDINO Start: 07-19-2019 Radiologic exam abdomen 1 view Caro Estevezino Work Phone: Start: 07-19-2019 Glucose blood reagent strip CARO DIBAR PATRICIA Start: 07-19-2019 Ecg routine ecg w/least 12 lds w/i&r CARO DIBARDINO Start: 07-19-2019 EKG REPORT CARO DIBARDINO Start: 07-19-2019 Glucose blood reagent strip Caro Dibar patricia Work Phone: Start: 07-19-2019 Ecg routine ecg w/least 12 lds i&r only Nuha Coronel Work Phone: Start: 07-19-2019 EKG REPORT Hpf Scanning Start: 07-19-2019 Assay of magnesium CARO LOCKEARDINO Start: 07-19-2019 Basic metabolic panel calcium total CARO DIBARDINO Start: 07-19-2019 Blood count complete automated CAROCHANELL ESTEVEZINO Start: 07-19-2019 Prothrombin time CARO DIBARDINO Start: 07-19-2019 Thromboplastin time partial plasma/whole blood CARO DIBARDINO Start: 07-19-2019 ARTERIAL BLOOD GAS, POC CARO DIBARDINO Start: 07-19-2019 Gluc bld gluc mntr dev cleared fda spec home use CARO LOCKEARDINO Start: 07-19-2019 Assay of magnesium Caro Dibardino Work Phone: Start: 07-19-2019 Basic metabolic panel calcium total Caro Teresa Work Phone: Start: 07-19-2019 Blood count complete automated Caro Storey Work Phone: Start: 07-19-2019 Prothrombin time Caro Teresa Work Phone: Start: 07-19-2019 Thromboplastin time partial plasma/whole blood Caro Teresa Work Phone: Start: 07-19-2019 ARTERIAL BLOOD GAS, POC Caro Teresa Work Phone: Start: 07-19-2019 Gluc bld gluc mntr dev cleared fda spec home use Caro Teresa Work Phone: Start: 07-19-2019 STRICT INTAKE AND OUTPUT CARO LOCKETDN O Start: 07-19-2019 INTAKE AND OUTPUT CARO LOCKEARDINO Start: 07-19-2019 Glucose blood reagent strip CARO LOCKEAR PATRICIA Start: 07-18-2019 Glucose blood reagent strip Caro Dibar patricia Work Phone: Start: 07-18-2019 Glucose blood reagent strip Caro Dibar patricia Work Phone: Start: 07-18-2019 Glucose blood reagent strip CARO DIBAR PATRICIA Start: 07-18-2019 Glucose blood reagent strip Caro Dibar patricia Work Phone: Start: 07-18-2019 RESTRAINTS NON-VIOLENT OR [id number] CARO TERESA Start: 07-18-2019 Glucose blood reagent strip CARO DIBAR PATRICIA Start: 07-18-2019 Glucose blood reagent strip Caro Dibar patricia Work Phone: Start: 07-18-2019 Glucose blood reagent strip CARO DIBAR PATRICIA Start: 07-18-2019 INITIATE OXYGEN THERAPY PROTOCOL CARO MALICK Start: 07-18-2019 Radiologic exam chest single view CARO TERESA Start: 07-18-2019 Ecg routine ecg w/least 12 [...] Start: 07-18-2019 Blood count complete automated Caro Di bardino Work Phone: Start: 07-18-2019 Prothrombin time [...] 07-17-2019 Glucose blood reagent strip Caro Dibar patrciia Work Phone: Start: 07-17-2019 RESTRAINTS NON-VIOLENT OR [id number] CARO TERESA Start: 07-17-2019 IP CONSULT TO NEUROSURGERY CARO ANDINO Start: 07-17-2019 Glucose blood reagent strip CARO SMALLWOOD PATRICIA Start: 07-17-2019 Glucose blood reagent strip Caro Smallwood patricia Work Phone: Start: 07-17-2019 Transfusion blood/blood components CARO LOCKETDNO Start: 07-17-2019 Glucose blood reagent strip CARO SMALLWOOD PATRICIA Start: 07-17-2019 Transfusion blood/blood components Hpf Scanning Start: 07-17-2019 Glucose blood reagent strip Caro Smallwood patricia Work Phone: Start: 07-17-2019 INITIATE OXYGEN THERAPY PROTOCOL CARO LOCKEMANUEL Start: 07-17-2019 Ecg routine ecg w/least 12 lds w/i&r CARO LOCKEMANUEL Start: 07-17-2019 EKG REPORT CARO LOCKEMANUEL Start: 07-17-2019 Glucose blood reagent strip CARO SMALLWOOD PATRICIA Start: 07-17-2019 Radiologic exam chest single view CARO LOCKEMANUEL Start: 07-17-2019 Assay of magnesium CARO WRAYNO Start: 07-17-2019 Basic metabolic panel calcium total CARO TERESA Start: 07-17-2019 Blood count complete automated CARO STOREY Start: 07-17-2019 Prothrombin time CARO LOCKETDMOLLY Start: 07-17-2019 Thromboplastin time partial plasma/whole blood CARO TERESA Start: 07-17-2019 ARTERIAL BLOOD GAS, POC CARO LOCKEMANUEL Start: 07-17-2019 Gluc bld gluc mntr dev cleared fda spec home use CARO WRAYNO Start: 07-17-2019 Ecg routine ecg w/least 12 lds i&r only Nuha Uriosteguimood Work Phone: Start: 07-17-2019 EKG REPORT Hpf Scanning Start: 07-17-2019 Glucose blood reagent strip Caro Smallwood patricia Work Phone: Start: 07-17-2019 Radiologic exam chest single view Vasiliy Garcia Work Phone: Start: 07-17-2019 Assay of magnesium Caro Lockemanuel Work Phone: Start: 07-17-2019 Basic metabolic panel calcium total Caro Teresa Work Phone: Start: 07-17-2019 Blood count complete automated Caro Storey Work Phone: Start: 07-17-2019 Prothrombin time Caro Wrayno Work Phone: Start: 07-17-2019 Thromboplastin time partial plasma/whole blood Cole Arteaga Work Phone: Start: 07-17-2019 ARTERIAL BLOOD GAS, POC Caro Locketdno Work Phone: Start: 07-17-2019 Gluc bld gluc mntr dev cleared fda spec home use Caro Locketdno Work Phone: Start: 07-17-2019 STRICT INTAKE AND OUTPUT CARO DIBARDIN O Start: 07-17-2019 INTAKE AND OUTPUT CARO WRAYNO Start: 07-17-2019 TRANSFUSE RED BLOOD CELLS CARO WRAY NO Start: 07-16-2019 TRANSFUSE RED BLOOD CELLS Nuha Ivey od Work Phone: Start: 07-16-2019 Glucose blood reagent strip CARO LOCKEAR PATRICIA Start: 07-16-2019 Thromboplastin time partial plasma/whole blood CARO LOCKEARDINO Start: 07-16-2019 Glucose blood reagent strip Caro Lockear patricia Work Phone: Start: 07-16-2019 Mri brain brain stem w/o w/contrast material CARO LOCKEARDINO Start: 07-16-2019 Mri spinal canal cervical w/o contrast matrl CARO LOCKEARDINO Start: 07-16-2019 Thromboplastin time partial plasma/whole blood Janusz Stein Work Phone: Start: 07-16-2019 Glucose blood reagent strip CARO DIBAR PATRICIA Start: 07-16-2019 Mri brain brain stem w/o w/contrast material Omar Quinones Work Phone: Start: 07-16-2019 Mri spinal canal cervical w/o contrast matrl Omar Quinones Work Phone: Start: 07-16-2019 RESTRAINTS NON-VIOLENT OR [id number] CARO TERESA Start: 07-16-2019 Glucose blood reagent strip Caro gomez Work Phone: Start: 07-16-2019 Autol bld/component collj storage predeposited CARO TERESA Start: 07-16-2019 Thromboplastin time partial plasma/whole blood CARO TERESA Start: 07-16-2019 TYPE AND SCREEN CARO TERESA Start: 07-16-2019 Glucose blood reagent strip CARO GOMEZ Start: 07-16-2019 Ecg routine ecg w/least 12 [...] Start: 07-16-2019 Glucose blood reagent strip Caro gomez Work Phone: Start: 07-16-2019 INITIATE OXYGEN THERAPY PROTOCOL CARO TERESA Start: 07-16-2019 Glucose blood reagent strip CARO GOMEZ Start: 07-16-2019 Radiologic exam chest single view CARO TERESA Start: 07-16-2019 ARTERIAL BLOOD GAS, POC CARO TERESA Start: 07-16-2019 Gluc bld gluc mntr dev cleared fda spec home use CARO TERESA Start: 07-16-2019 Assay of magnesium CARO TERESA Start: 07-16-2019 Assay of phosphorus inorganic CARO JACKSON Start: 07-16-2019 Basic metabolic panel calcium total CARO TERESA Start: 07-16-2019 Blood count complete automated CARO STOREY Start: 07-16-2019 Prothrombin time CARO TERESA Start: 07-16-2019 Thromboplastin time partial plasma/whole blood CARO TERESA Start: 07-16-2019 Glucose blood reagent strip Caro Dibar patricia Work Phone: Start: 07-16-2019 Radiologic exam chest single view Vasiliy Garcia Work Phone: Start: 07-16-2019 ARTERIAL BLOOD GAS, POC Caro Lockeardino Work Phone: Start: 07-16-2019 Gluc bld gluc mntr dev cleared fda spec home use Caro Dibardino Work Phone: Start: 07-16-2019 Assay of magnesium Caro Dibardino Work Phone: Start: 07-16-2019 Assay of phosphorus inorganic Caro Locke ardino Work Phone: Start: 07-16-2019 Basic metabolic panel calcium total Caro Dibardino Work Phone: Start: 07-16-2019 Blood count complete automated Caro Di ino Work Phone: Start: 07-16-2019 Prothrombin time Caro Lockeardino Work Phone: Start: 07-16-2019 Thromboplastin time partial plasma/whole blood Caro Dibardino Work Phone: Start: 07-16-2019 INTAKE AND OUTPUT [...] Start: 07-15-2019 Blood count complete automated Caro Storey Work Phone: Start: 07-15-2019 Thromboplastin time partial plasma/whole blood Caro Wrayno Work Phone: Start: 07-15-2019 Glucose blood reagent strip Caro Dibar patricia Work Phone: Start: 07-15-2019 Assay of ammonia CARO TERESA Start: 07-15-2019 CULTURE, BLOOD 1 CARO TERESA Start: 07-15-2019 Assay of ammonia Omar Quinones Work Phone: Start: 07-15-2019 End: 07-15-2019 CULTURE, BLOOD 1 Rodrigo Avasthi Work Phone: Start: 07-15-2019 Virus centrifuge enhncd id imfluor stain ea CARO DIBARDINO Start: 07-15-2019 INFECTIOUS DISEASE INTERVENTION CARO GILL Start: 07-15-2019 Glucose blood reagent strip CARO DIBAR PATRICIA Start: 07-15-2019 RESTRAINTS NON-VIOLENT OR [id number] CARO CORNELIAARDINO Start: 07-15-2019 Virus centrifuge enhncd id imfluor stain ea Rodrigo Avasthi Work Phone: Start: 07-15-2019 INFECTIOUS DISEASE INTERVENTION Titus danielle Work Phone: Start: 07-15-2019 Glucose blood reagent strip Caro Dibar patricia Work Phone: Start: 07-15-2019 INITIATE OXYGEN THERAPY PROTOCOL CARO TERESA Start: 07-15-2019 Glucose blood reagent strip CARO DIBAR PATRICIA Start: 07-15-2019 Radiologic exam chest single view CARO TERESA Start: 07-15-2019 ARTERIAL BLOOD GAS, POC CARO TERESA Start: 07-15-2019 Assay of free thyroxine CARO TERESA Start: 07-15-2019 Assay of magnesium CARO TERESA Start: 07-15-2019 Assay of thyroid stimulating hormone tsh CARO TERESA Start: 07-15-2019 Assay of triiodothyronine t3 free CARO DIBARDINO Start: 07-15-2019 Basic metabolic panel calcium total CARO TERESA Start: 07-15-2019 Blood count complete automated CARO ESTEVEZINO Start: 07-15-2019 Cortisol total CARO DIBARDINO Start: 07-15-2019 Prothrombin time CARO DIBARDINO Start: 07-15-2019 Thromboplastin time partial plasma/whole blood CARO DIBARDINO Start: 07-15-2019 Glucose blood reagent strip Caro Dibar patricia Work Phone: Start: 07-15-2019 Radiologic exam chest single view Vasiliy Garcia Work Phone: Start: 07-15-2019 ARTERIAL BLOOD GAS, POC Caro Lockeardino Work Phone: Start: 07-15-2019 Assay of free thyroxine Omar Quinones Work Phone: Start: 07-15-2019 Assay of magnesium Caro Lockeardino Work Phone: Start: 07-15-2019 Assay of thyroid stimulating hormone tsh Omar Quinones Work Phone: Start: 07-15-2019 Assay of triiodothyronine t3 free Omar Quinones Work Phone: Start: 07-15-2019 Basic metabolic panel calcium total Caro Dibardino Work Phone: Start: 07-15-2019 Blood count complete automated Caro Storey Work Phone: Start: 07-15-2019 Cortisol total Omar uQinones Work Phone: Start: 07-15-2019 Prothrombin time Caro Lockeardino Work Phone: Start: 07-15-2019 Thromboplastin time partial [...] 07-14-2019 Thromboplastin time partial plasma/whole blood CARO WRAYNO Start: 07-14-2019 Thromboplastin time partial plasma/whole blood Caro Wrayno Work Phone: Start: 07-14-2019 Glucose blood reagent strip CARO SMALLWOOD PATRICIA Start: 07-14-2019 ARTERIAL BLOOD GAS, POC CARO WRAYNO Start: 07-14-2019 Gluc bld gluc mntr dev cleared fda spec home use CARO LOCKEARDINO Start: 07-14-2019 Blood gases any combination ph pco2 po2 co2 hco3 CARO LOCKEARDINO Start: 07-14-2019 Glucose blood reagent strip Caro Lockear patricia Work Phone: Start: 07-14-2019 ARTERIAL BLOOD GAS, POC Caro Wrayno Work Phone: Start: 07-14-2019 Gluc bld gluc mntr dev cleared fda spec home use Caro Wrayno Work Phone: Start: 07-14-2019 INITIATE OXYGEN THERAPY PROTOCOL CARO TERESA Start: 07-14-2019 Ecg routine ecg w/least 12 lds w/i&r CARO TERESA Start: 07-14-2019 Glucose blood reagent strip CARO SMALLWOOD PATRICIA Start: 07-14-2019 Radiologic exam chest single view CARO TERESA Start: 07-14-2019 Thromboplastin time partial plasma/whole blood CARO WRAYNO Start: 07-14-2019 Glucose blood reagent strip Caro Smallwood patricia Work Phone: Start: 07-14-2019 Assay of magnesium CARO WRAYMOLLY Start: 07-14-2019 Basic metabolic panel calcium total CARO TERESA Start: 07-14-2019 Blood count complete automated CARO STOREY Start: 07-14-2019 Prothrombin time CARO LOCKEMANUEL Start: 07-14-2019 ARTERIAL BLOOD GAS, POC CARO WRAYNO Start: 07-14-2019 Radiologic exam chest single view Vasiliy Garcia Work Phone: Start: 07-14-2019 Thromboplastin time partial plasma/whole blood Hernán Manzano Work Phone: Start: 07-14-2019 Assay of magnesium Caro Teresa Work Phone: Start: 07-14-2019 Basic metabolic panel calcium total Caro Wrayno Work Phone: Start: 07-14-2019 Blood count complete automated Caro Storey Work Phone: Start: 07-14-2019 Prothrombin time Caro Wrayno Work Phone: Start: 07-14-2019 ARTERIAL BLOOD GAS, POC Caro Wrayno Work Phone: Start: 07-14-2019 Ecg routine ecg w/least 12 lds w/i&r CARO LOCKEARDINO Start: 07-14-2019 EKG REPORT CARO LOCKEARDINO Start: 07-14-2019 INTAKE AND OUTPUT CARO DIBARDINO Start: 07-14-2019 STRICT INTAKE AND OUTPUT CARO DIBARDIN O Start: 07-14-2019 Potassium serum plasma/whole blood CARO LOCKEARDINO Start: 07-14-2019 Thromboplastin time partial plasma/whole blood CARO DIBARDINO Start: 07-14-2019 Ecg routine ecg w/least 12 lds trcg only w/o i&r Caro Lockeardino Work Phone: Start: 07-14-2019 EKG REPORT Hpf Scanning Start: 07-13-2019 Potassium serum plasma/whole blood Caro Lockeardino Work Phone: Start: 07-13-2019 Thromboplastin time partial plasma/whole blood Cole Marc Work Phone: Start: 07-13-2019 Glucose blood reagent strip CARO DIBAR PATRICIA Start: 07-13-2019 Glucose blood reagent strip Caro Dibar patricia Work Phone: Start: 07-13-2019 MISCELLANEOUS NURSING CARE ORDER (SPECIFY) CARO DIBARDINO Start: 07-13-2019 Glucose blood reagent strip CARO DIBAR PATRICIA Start: 07-13-2019 Basic metabolic panel calcium total CARO LOCKEARDINO Start: 07-13-2019 Thromboplastin time partial plasma/whole blood CARO DIBARDINO Start: 07-13-2019 Glucose blood reagent strip Caro Dibar patricia Work Phone: Start: 07-13-2019 [facility] ctr vad w/subq port age 3 yr/> CARO WRAYNO Start: 07-13-2019 MISCELLANEOUS NURSING CARE ORDER (SPECIFY) CARO LOCKEARDINO Start: 07-13-2019 Ecg routine ecg w/least 12 lds w/i&r CARO LOCKEARDINO Start: 07-13-2019 EKG REPORT CARO LOCKEARDIMOLLY Start: 07-13-2019 Basic metabolic panel calcium total Jenniferer Homer Work Phone: Start: 07-13-2019 Thromboplastin time partial plasma/whole blood Cole Marc Work Phone: Start: 07-13-2019 NOTIFY PHYSICIAN (SPECIFY) CARO ANDINO Start: 07-13-2019 NURSING COMMUNICATION CRAO TERESA Start: 07-13-2019 Glucose blood reagent strip CARO DIBAR PATRICIA Start: 07-13-2019 [facility] ctr vad w/subq port age 3 yr/> Rupali Longthorne Work Phone: Start: 07-13-2019 MISCELLANEOUS NURSING CARE ORDER (SPECIFY) Rupali Longthorne Work Phone: Start: 07-13-2019 Ecg routine ecg w/least 12 lds trcg only w/o i&r Nuha Iveyod Work Phone: Start: 07-13-2019 EKG REPORT Hpf Scanning Start: 07-13-2019 RESTRAINTS NON-VIOLENT OR [id number] CARO TERESA Start: 07-13-2019 Glucose blood reagent strip Caro Dibar patricia Work Phone: Start: 07-13-2019 INITIATE OXYGEN THERAPY PROTOCOL CARO LOCKEARDIMOLLY Start: 07-13-2019 Glucose blood reagent strip CARO DIBAR PATRICIA Start: 07-13-2019 ARTERIAL BLOOD GAS, POC CARO LOCKEARDINO Start: 07-13-2019 Radiologic exam chest single view CARO TERESA Start: 07-13-2019 Glucose blood reagent strip Caro Dibar patricia Work Phone: Start: 07-13-2019 ARTERIAL BLOOD GAS, POC Caro Dibardino Work Phone: Start: 07-13-2019 ANION GAP (CALC) POC CARO DIBARDINO Start: 07-13-2019 ARTERIAL BLOOD GAS, POC CARO DIBARDINO Start: 07-13-2019 Blood count hemoglobin CARO DIBARDINO Start: 07-13-2019 Calcium ionized CARO DIBARDINO Start: 07-13-2019 Chloride other source CARO DIBARDINO Start: 07-13-2019 CREATININE W/GFR POINT OF CARE CARO ESTEVEZINO Start: 07-13-2019 Gluc bld gluc mntr dev cleared fda spec home use CARO DIBARDINO Start: 07-13-2019 LACTIC ACID,POINT OF CARE CARO DIBARDI NO Start: 07-13-2019 Potassium serum plasma/whole blood CARO DIBARDINO Start: 07-13-2019 Sodium serum plasma or whole blood CARO DIBARDINO Start: 07-13-2019 Assay of magnesium CARO LOCKEARDINO Start: 07-13-2019 Assay of phosphorus inorganic CARO CORNELIA ARDINO Start: 07-13-2019 Assay of triiodothyronine t3 free CARO DIBARDINO Start: 07-13-2019 Basic metabolic panel calcium total CARO DIBARDINO Start: 07-13-2019 Blood count complete automated CARO ESTEVEZINO Start: 07-13-2019 Prothrombin time CARO DIBARDINO Start: 07-13-2019 Thromboplastin time partial plasma/whole blood CARO DIBARDINO Start: 07-13-2019 Radiologic exam chest single view Vasiliy Garcia Work Phone: Start: 07-13-2019 End: 07-13-2019 ANION GAP (CALC) POC Caro Dibardino Work Phone: Start: 07-13-2019 End: 07-13-2019 ARTERIAL BLOOD GAS, POC Caro Dibardino Work Phone: Start: 07-13-2019 End: 07-13-2019 Blood count hemoglobin Caro Dibardino Work Phone: Start: 07-13-2019 End: 07-13-2019 CALCIUM, IONIC (POC) Caro Dibardino Work Phone: Start: 07-13-2019 End: 07-13-2019 Chloride [Moles/Vol] Caro Dibardino Work Phone: Start: 07-13-2019 End: 07-13-2019 CREATININE W/GFR POINT OF CARE Caro Storey Work Phone: Start: 07-13-2019 End: 07-13-2019 Gluc bld gluc mntr dev cleared fda spec home use Caro Wrayno Work Phone: Start: 07-13-2019 End: 07-13-2019 LACTIC ACID,POINT OF CARE Caro Wray no Work Phone: Start: 07-13-2019 End: 07-13-2019 Potassium [Moles/Vol] Caro Wrayno Work Phone: Start: 07-13-2019 End: 07-13-2019 Sodium [Moles/Vol] Caro Lockeardino Work Phone: Start: 07-13-2019 Assay of magnesium Caro Wrayno Work Phone: Start: 07-13-2019 Assay of phosphorus inorganic Caro farnsworthdino Work Phone: Start: 07-13-2019 Assay of triiodothyronine t3 free Caro Wrayno Work Phone: Start: 07-13-2019 Basic metabolic panel calcium total Caro Wrayno Work Phone: Start: 07-13-2019 Blood count complete automated Caro Storey Work Phone: Start: 07-13-2019 Prothrombin time Caro Wrayno Work Phone: Start: 07-13-2019 Thromboplastin time partial plasma/whole blood Caro Lockeardino Work Phone: Start: 07-13-2019 STRICT INTAKE AND OUTPUT CARO DIBARDIN O Start: 07-13-2019 INTAKE AND OUTPUT CARO DIBARDINO Start: 07-12-2019 Glucose blood reagent strip CARO DIBAR PATRICIA Start: 07-12-2019 Thromboplastin time partial plasma/whole blood CARO DIBARDINO Start: 07-12-2019 Glucose blood reagent strip Caro Dibar patricia Work Phone: Start: 07-12-2019 Thromboplastin time partial plasma/whole blood Mobabramer Homer Work Phone: Start: 07-12-2019 ARTERIAL BLOOD GAS, POC CARO DIBARDINO Start: 07-12-2019 Localize cerebral seizure cable/radio eeg/video CARO DIBARDINO Start: 07-12-2019 Microsomal antibodies each CARO LOCKEARD MADI Start: 07-12-2019 Glucose blood reagent strip CARO DIBAR PATRICIA Start: 07-12-2019 ARTERIAL BLOOD GAS, POC Caro Dibardino Work Phone: Start: 07-12-2019 EEG VIDEO MONITORING Meseret Arechiga Work Phone: Start: 07-12-2019 Microsomal antibodies each Ladnen Lua Work Phone: Start: 07-12-2019 THYROGLOBULIN AND ANTI-THYROGLOBULIN AB Landen Lua Work Phone: Start: 07-12-2019 PREVIOUS SPECIMEN CARO DIBARDINO Start: 07-12-2019 Thromboplastin time partial plasma/whole blood CARO DIBARDINO Start: 07-12-2019 Glucose blood reagent strip Caro Dibar patircia Work Phone: Start: 07-12-2019 Assay of free thyroxine CARO DIBARDINO Start: 07-12-2019 Assay of thyroid stimulating hormone tsh CARO DIBARDINO Start: 07-12-2019 Thromboplastin time partial plasma/whole blood Caro Dibardino Work Phone: Start: 07-12-2019 Mra head w/o contrst material CARO CORNELIA ARDINO Start: 07-12-2019 Mra neck w/o contrst material CARO CORNELIA ARDINO Start: 07-12-2019 Mri brain brain stem w/o contrast material CARO DIBARDINO Start: 07-12-2019 Assay of free thyroxine Mobabramer Homer Work Phone: Start: 07-12-2019 Assay of thyroid stimulating hormone tsh Landen Lua Work Phone: Start: 07-12-2019 ARTERIAL BLOOD GAS, POC CARO DIBARDINO Start: 07-12-2019 Glucose blood reagent strip CARO DIBAR PATRICIA Start: 07-12-2019 Mra head w/o contrst material Meseret Mi ller Work Phone: Start: 07-12-2019 Mra neck w/o contrst material Meseret benjamin Work Phone: Start: 07-12-2019 Mri brain brain stem w/o contrast material Meseret Arechiga Work Phone: Start: 07-12-2019 ARTERIAL BLOOD GAS, POC Caro Dibardino Work Phone: Start: 07-12-2019 Glucose blood reagent strip Caro Smallwood patricia Work Phone: Start: 07-12-2019 INITIATE OXYGEN THERAPY PROTOCOL CARO WRAYNO Start: 07-12-2019 Radiologic exam chest single view CARO DIBARDINO Start: 07-12-2019 ANION GAP (CALC) POC CARO DIBARDINO Start: 07-12-2019 ARTERIAL BLOOD GAS, POC CARO DIBARDINO Start: 07-12-2019 Blood count hemoglobin CARO LOCKEARDINO Start: 07-12-2019 Calcium ionized CARO LOCKEARDINO Start: 07-12-2019 Chloride other source CARO LOCKEARDINO Start: 07-12-2019 CREATININE W/GFR POINT OF CARE CARO STOREY Start: 07-12-2019 Gluc bld gluc mntr dev cleared fda spec home use CARO DIBARDINO Start: 07-12-2019 LACTIC ACID,POINT OF CARE CARO LOCKEARDI NO Start: 07-12-2019 Potassium serum plasma/whole blood CARO DIBARDINO Start: 07-12-2019 Sodium serum plasma or whole blood CARO DIBARDINO Start: 07-12-2019 Assay of magnesium CARO LOCKEARDINO Start: 07-12-2019 Assay of phosphorus inorganic CARO FARNSWORTHDINO Start: 07-12-2019 Basic metabolic panel calcium total CARO DIBARDINO Start: 07-12-2019 Blood count complete automated CARO ESTEVEZINO Start: 07-12-2019 Cortisol total CARO DIBARDINO Start: 07-12-2019 Cyanocobalamin vitamin b-12 CARO SMALLWOOD PATRICIA Start: 07-12-2019 Prothrombin time CARO DIBARDINO Start: 07-12-2019 Thromboplastin time partial plasma/whole blood CARO DIBARDINO Start: 07-12-2019 Radiologic exam chest single view Vasiliy Garcia Work Phone: Start: 07-12-2019 ANION GAP (CALC) POC Caro Teresa Work Phone: Start: 07-12-2019 ARTERIAL BLOOD GAS, POC Caro Teresa Work Phone: Start: 07-12-2019 Blood count hemoglobin Caro Teresa Work Phone: Start: 07-12-2019 CALCIUM, IONIC (POC) Caro Teresa Work Phone: Start: 07-12-2019 Chloride [Moles/Vol] Caro Teresa Work Phone: Start: 07-12-2019 CREATININE W/GFR POINT OF CARE Caro Storey Work Phone: Start: 07-12-2019 Gluc bld gluc mntr dev cleared fda spec home use Caro Teresa Work Phone: Start: 07-12-2019 LACTIC ACID,POINT OF CARE Caro Wray no Work Phone: Start: 07-12-2019 Potassium [Moles/Vol] Caro Teresa Work Phone: Start: 07-12-2019 Sodium [Moles/Vol] Caro Teresa Work Phone: Start: 07-12-2019 Assay of magnesium Caro Teresa Work Phone: Start: 07-12-2019 Assay of phosphorus inorganic Caro lynchselene Work Phone: Start: 07-12-2019 Basic metabolic panel calcium total Caro Teresa Work Phone: Start: 07-12-2019 Blood count complete automated Caro Storey Work Phone: Start: 07-12-2019 Cortisol total Caro Teresa Work Phone: Start: 07-12-2019 GENERIC LABORATORY CHARGE Caro Wray no Work Phone: Start: 07-12-2019 Prothrombin time Caro Teresa Work Phone: Start: 07-12-2019 Thromboplastin time partial plasma/whole blood Caro Dibardino Work Phone: Start: 07-12-2019 STRICT INTAKE AND OUTPUT CARO DIBARDIN O Start: 07-12-2019 INTAKE AND OUTPUT CARO DIBARDINO Start: 07-12-2019 Electrolyte panel CARO DIBARDINO Start: 07-12-2019 Assay of magnesium CARO DIBARDINO Start: 07-11-2019 Electrolyte panel Enio Collierage Work Phone: Start: 07-11-2019 Assay of magnesium Enio J Zarate Work Phone: Start: 07-11-2019 Glucose blood reagent [...] POINT OF CARE CARO STOREY Start: 07-11-2019 Gluc bld gluc mntr dev cleared fda spec home use CARO DIBARDINO Start: 07-11-2019 LACTIC ACID,POINT OF CARE CARO DIBTD NO Start: 07-11-2019 Potassium serum plasma/whole blood CARO DIBARDINO Start: 07-11-2019 Sodium serum plasma or whole blood CARO DIBARDINO Start: 07-11-2019 End: 07-11-2019 CULTURE, BLOOD 1 Vasiliy Garcia Work Phone: Start: 07-11-2019 Virus centrifuge enhncd id imfluor stain ea Titus Hyde Work Phone: Start: 07-11-2019 ANION GAP (CALC) POC CARO DIBARDINO Start: 07-11-2019 ARTERIAL BLOOD GAS, POC CARO DIBARDINO Start: 07-11-2019 Calcium ionized CARO DIBARDINO Start: 07-11-2019 Chloride other source CARO DIBARDINO Start: 07-11-2019 CREATININE W/GFR POINT OF CARE CARO DI INO Start: 07-11-2019 LACTIC ACID,POINT OF CARE CARO LOCKEARDI NO Start: 07-11-2019 Potassium serum plasma/whole blood CARO DIBARDINO Start: 07-11-2019 Sodium serum plasma or whole blood CARO DIBARDINO Start: 07-11-2019 ANION GAP (CALC) POC Caro Corneliaardino Work Phone: Start: 07-11-2019 ARTERIAL BLOOD GAS, POC Caro Dibardino Work Phone: Start: 07-11-2019 Blood count hemoglobin Caro Corneliatdno Work Phone: Start: 07-11-2019 CALCIUM, IONIC (POC) [...] [Moles/Vol] Caro Dibardino Work Phone: Start: 07-11-2019 ANION GAP (CALC) POC CARO DIBARDINO Start: 07-11-2019 ARTERIAL BLOOD GAS, POC CARO DIBARDINO Start: 07-11-2019 Calcium ionized CARO DIBARDINO Start: 07-11-2019 Chloride other source ACRO DIBARDINO Start: 07-11-2019 CREATININE W/GFR POINT OF CARE CARO ESTEVEZINO Start: 07-11-2019 LACTIC ACID,POINT OF CARE CARO DIBARDI NO Start: 07-11-2019 Potassium serum plasma/whole blood CARO DIBARDINO Start: 07-11-2019 Sodium serum plasma or whole blood CARO DIBARDINO Start: 07-11-2019 ANION GAP (CALC) POC Caro Dibardino Work Phone: Start: 07-11-2019 ARTERIAL BLOOD GAS, POC Caro Dibardino Work Phone: Start: 07-11-2019 Blood count hemoglobin Caro Corneliaardino Work Phone: Start: 07-11-2019 CALCIUM, IONIC (POC) Caro Lockeardino Work Phone: Start: 07-11-2019 Chloride [Moles/Vol] Caro Lockeardino Work Phone: Start: 07-11-2019 CREATININE W/GFR POINT OF CARE Caro Storey Work Phone: Start: 07-11-2019 Gluc bld gluc mntr dev cleared fda spec home use Caro Wrayno Work Phone: Start: 07-11-2019 LACTIC ACID,POINT OF CARE Caro Lockeardi no Work Phone: Start: 07-11-2019 Potassium [Moles/Vol] Caro Lockeardino Work Phone: Start: 07-11-2019 Sodium [Moles/Vol] Caro Lockeardino Work Phone: Start: 07-11-2019 Assay of magnesium CARO WRAYNO Start: 07-11-2019 Basic metabolic panel calcium total CARO LOCKEARDINO Start: 07-11-2019 Thromboplastin time partial plasma/whole blood CARO DIBARDINO Start: 07-11-2019 ANION GAP (CALC) POC CARO DIBARDINO Start: 07-11-2019 ARTERIAL BLOOD GAS, POC CARO DIBARDINO Start: 07-11-2019 Calcium ionized CARO DIBARDINO Start: 07-11-2019 Chloride other source CARO LOCKEARDINO Start: 07-11-2019 CREATININE W/GFR POINT OF CARE CARO ESTEVEZINO Start: 07-11-2019 LACTIC ACID,POINT OF CARE CARO LOCKEARDI NO Start: 07-11-2019 Potassium serum plasma/whole blood CARO DIBARDINO Start: 07-11-2019 Sodium serum plasma or whole blood CARO WRAYMOLLY Start: 07-11-2019 ANION GAP (CALC) POC Caro Wrayno Work Phone: Start: 07-11-2019 ARTERIAL BLOOD GAS, POC Caro Wrayno Work Phone: Start: 07-11-2019 Blood count hemoglobin Caro Wrayno Work Phone: Start: 07-11-2019 CALCIUM, IONIC (POC) Caro Locketdno Work Phone: Start: 07-11-2019 Chloride [Moles/Vol] Caro Wrayno Work Phone: Start: 07-11-2019 CREATININE W/GFR POINT OF CARE Caro Zhong viotr Work Phone: Start: 07-11-2019 Gluc bld gluc mntr dev cleared fda spec home use Caro Teresa Work Phone: Start: 07-11-2019 LACTIC ACID,POINT OF CARE Caro Wray no Work Phone: Start: 07-11-2019 Potassium [Moles/Vol] Caro Teresa Work Phone: Start: 07-11-2019 Sodium [Moles/Vol] Caro Teresa Work Phone: Start: 07-11-2019 Assay of magnesium Caro Teresa Work Phone: Start: 07-11-2019 Basic metabolic panel [...] Work Phone: Start: 07-11-2019 Chloride [Moles/Vol] Caro Dibardino Work Phone: Start: 07-11-2019 CREATININE W/GFR POINT [...] CREATININE W/GFR POINT OF CARE CARO DI INO Start: 07-11-2019 Gluc bld gluc mntr dev cleared fda spec home use CARO DIBARDINO Start: 07-11-2019 LACTIC ACID,POINT OF CARE CARO LOCKEARDI NO Start: 07-11-2019 Potassium serum plasma/whole blood [...] Start: 07-11-2019 LACTIC ACID,POINT OF CARE CARO DIBTD NO Start: 07-11-2019 NOTIFICATION PANEL, POC CARO [...] Work Phone: Start: 07-11-2019 Sodium [Moles/Vol] Caro Corneliaardino Work Phone: Start: 07-11-2019 Radiologic exam chest single view Vasiliy Garcia Work Phone: Start: 07-11-2019 Calcium ionized CARO LOCKEARDINO Start: 07-11-2019 IP CONSULT TO PULMONOLOGY CARO WRAY NO Start: 07-11-2019 ANION GAP (CALC) POC CARO WRAYNO Start: 07-11-2019 ARTERIAL BLOOD GAS, POC CARO WRAYNO Start: 07-11-2019 Chloride other source CARO DIBARDINO Start: 07-11-2019 CREATININE W/GFR POINT OF CARE CARO STOREY Start: 07-11-2019 LACTIC ACID,POINT OF CARE CARO LOCKETD NO Start: 07-11-2019 NOTIFICATION PANEL, POC CARO CORNELIAMANUEL Start: 07-11-2019 Potassium serum plasma/whole blood CARO CORNELIATDNO Start: 07-11-2019 Sodium serum plasma or whole blood CARO WRAYNO Start: 07-11-2019 ANION GAP (CALC) POC Caro Corneliatdno Work Phone: Start: 07-11-2019 ARTERIAL BLOOD GAS, POC Caro Corneliamanuel Work Phone: Start: 07-11-2019 Blood count hemoglobin Caro Malick Work Phone: Start: 07-11-2019 CALCIUM, IONIC (POC) Caro Teresa Work Phone: Start: 07-11-2019 Chloride [Moles/Vol] Caro Teresa Work Phone: Start: 07-11-2019 CREATININE W/GFR POINT OF CARE Caro Storey Work Phone: Start: 07-11-2019 Gluc bld gluc mntr dev cleared fda spec home use Caro Lockemanuel Work Phone: Start: 07-11-2019 LACTIC ACID,POINT OF CARE Caro Locketd no Work Phone: Start: 07-11-2019 NOTIFICATION PANEL, POC Caro Dibmanuel Work Phone: Start: 07-11-2019 Potassium [Moles/Vol] Caro Teresa Work Phone: Start: 07-11-2019 Sodium [Moles/Vol] Caro Corneliatdno Work Phone: Start: 07-11-2019 Radiologic exam chest single view CARO TERESA Start: 07-11-2019 Calcium ionized CARO TERESA Start: 07-11-2019 Blood gases any combination ph pco2 po2 co2 hco3 CARO TERESA Start: 07-11-2019 Assay of magnesium CARO TERESA Start: 07-11-2019 Assay of phosphorus inorganic CARO JACKSON Start: 07-11-2019 Basic metabolic panel calcium total CARO TERESA Start: 07-11-2019 Blood count complete automated CARO STOREY Start: 07-11-2019 Prothrombin time CARO WRAYMOLLY Start: 07-11-2019 Thromboplastin time partial plasma/whole blood CARO WRAYNO Start: 07-11-2019 End: 07-11-2019 ANION GAP (CALC) POC Caro Wrayno Work Phone: Start: 07-11-2019 End: 07-11-2019 ARTERIAL BLOOD GAS, POC Caro Wrayno Work Phone: Start: 07-11-2019 End: 07-11-2019 Blood count hemoglobin Caro Wraymolly Work Phone: Start: 07-11-2019 End: 07-11-2019 CALCIUM, IONIC (POC) Caro Locketdno Work Phone: Start: 07-11-2019 End: 07-11-2019 Chloride [Moles/Vol] Caro Locketdno Work Phone: Start: 07-11-2019 End: 07-11-2019 CREATININE W/GFR POINT OF CARE Caro Storey Work Phone: Start: 07-11-2019 End: 07-11-2019 Gluc bld gluc mntr dev cleared fda spec home use Caro Teresa Work Phone: Start: 07-11-2019 End: 07-11-2019 LACTIC ACID,POINT OF CARE Caro Wray molly Work Phone: Start: 07-11-2019 NOTIFICATION PANEL, POC Caro Wrayno Work Phone: Start: 07-11-2019 End: 07-11-2019 Potassium [Moles/Vol] Caro Locketdno Work Phone: Start: 07-11-2019 End: 07-11-2019 Sodium [Moles/Vol] Caro Lockeardino Work Phone: Start: 07-11-2019 Radiologic exam chest single view Kuladeep Gidda Work Phone: Start: 07-11-2019 Calcium ionized Kuladeep Gidda Work Phone: Start: 07-11-2019 Assay of magnesium Caro oLckeardino Work Phone: Start: 07-11-2019 Assay of phosphorus inorganic Caro Cornelia ardino Work Phone: Start: 07-11-2019 Basic metabolic panel calcium total Caro Lockeardino Work Phone: Start: 07-11-2019 Blood count complete automated Caro Zhong vitor Work Phone: Start: 07-11-2019 Prothrombin time Caro Corneliaardino Work Phone: Start: 07-11-2019 Thromboplastin time partial plasma/whole blood Vasiliy A Garcia Work Phone: Start: 07-11-2019 STRICT INTAKE AND OUTPUT CARO DIBARDIN O Start: 07-11-2019 INTAKE AND OUTPUT CARO DIBARDINO Start: 07-11-2019 Thromboplastin time partial plasma/whole blood CARO DIBARDINO Start: 07-11-2019 Thromboplastin time partial plasma/whole blood Vasiliy A Garcia Work Phone: Start: 07-11-2019 Ecg routine ecg w/least 12 lds w/i&r CARO DIBARDINO Start: 07-11-2019 EKG REPORT CARO DIBARDINO Start: 07-10-2019 Glucose blood reagent strip CARO DIBAR PATRICIA Start: 07-10-2019 Ecg routine ecg w/least 12 lds i&r only Federico Luis Work Phone: Start: 07-10-2019 EKG REPORT Hpf Scanning Start: 07-10-2019 Glucose blood reagent strip Caro Dibar patricia Work Phone: Start: 07-10-2019 Thromboplastin time partial plasma/whole blood CARO DIBARDINO Start: 07-10-2019 Glucose blood reagent strip CARO DIBAR PATRICIA Start: 07-10-2019 Thromboplastin time partial plasma/whole blood Vasiliy A Garcia Work Phone: Start: 07-10-2019 Glucose blood reagent strip Caro Dibar patricia Work Phone: Start: 07-10-2019 ARTERIAL BLOOD GAS, POC CARO LOCKEARDINO Start: 07-10-2019 Gluc bld gluc mntr dev cleared fda spec home use CARO LOCKEARDINO Start: 07-10-2019 LACTIC ACID,POINT OF CARE CARO LOCKEARDI NO Start: 07-10-2019 Thromboplastin time partial plasma/whole blood CARO DIBARDINO Start: 07-10-2019 Glucose blood reagent strip CARO DIBAR PATRICIA Start: 07-10-2019 IP CONSULT TO CRITICAL CARE CARO CORNELIAAR PATRICIA Start: 07-10-2019 ARTERIAL BLOOD GAS, POC Caro Lockeardino Work Phone: Start: 07-10-2019 Gluc bld gluc mntr dev cleared fda spec home use Caro Lockeardino Work Phone: Start: 07-10-2019 LACTIC ACID,POINT OF CARE Caro Dibardi no Work Phone: Start: 07-10-2019 Thromboplastin time partial plasma/whole blood Vasiliy Garcia Work Phone: Start: 07-10-2019 Glucose blood reagent strip Caro Lockear patricia Work Phone: Start: 07-10-2019 IP CONSULT TO IV TEAM CARO TERESA Start: 07-10-2019 TRANSFER PATIENT CARO LOCKEMANUEL Start: 07-10-2019 INITIATE OXYGEN THERAPY PROTOCOL CARO LOCKETDNO Start: 07-10-2019 ARTERIAL BLOOD GAS, POC CARO LOCKEARDINO Start: 07-10-2019 Gluc bld gluc mntr dev cleared fda spec home use CARO LOCKEARDINO Start: 07-10-2019 LACTIC ACID,POINT OF CARE CARO LOCKEARDI NO Start: 07-10-2019 POC BLOOD GAS CARO LOCKEARDINO Start: 07-10-2019 Glucose blood reagent strip CARO DIBAR PATRICIA Start: 07-10-2019 POC BLOOD GAS CARO DIBARDINO Start: 07-10-2019 ANION GAP (CALC) POC CARO DIBARDINO Start: 07-10-2019 ARTERIAL BLOOD GAS, POC CARO DIBARDINO Start: 07-10-2019 Blood count hemoglobin CRAO WRAYNO Start: 07-10-2019 Calcium ionized CARO CORNELIAARDINO Start: 07-10-2019 Chloride other source CARO LOCKEARDINO Start: 07-10-2019 CREATININE W/GFR POINT OF CARE CARO DI INO Start: 07-10-2019 LACTIC ACID,POINT OF CARE CARO LOCKEARDI NO Start: 07-10-2019 Potassium serum plasma/whole blood CARO LOCKEARDINO Start: 07-10-2019 Sodium serum plasma or whole blood CARO LOCKEARDINO Start: 07-10-2019 ARTERIAL BLOOD GAS, POC Caro Locketdno Work Phone: Start: 07-10-2019 Gluc bld gluc mntr dev cleared fda spec home use Caro Locketdno Work Phone: Start: 07-10-2019 LACTIC ACID,POINT OF CARE Caro Lockeardi no Work Phone: Start: 07-10-2019 Glucose blood reagent strip Caro Smallwood patricia Work Phone: Start: 07-10-2019 Radiologic exam chest single view CARO WRAYNO Start: 07-10-2019 Ct head/brain w/o contrast material CARO CORNELIATDNO Start: 07-10-2019 Assay of magnesium CARO CORNELIATDNO Start: 07-10-2019 Assay of phosphorus inorganic CARO FARNSWORTHDINO Start: 07-10-2019 Basic metabolic panel calcium total CARO DIBARDINO Start: 07-10-2019 Blood count complete automated CARO STOREY Start: 07-10-2019 Prothrombin time CARO LOCKETDNO Start: 07-10-2019 Thromboplastin time partial plasma/whole blood CARO DIBARDINO Start: 07-10-2019 ANION GAP (CALC) POC CARO CORNELIAARDINO Start: 07-10-2019 ARTERIAL BLOOD GAS, POC CARO CORNELIAARDINO Start: 07-10-2019 Calcium ionized CARO DIBARDINO Start: 07-10-2019 Chloride other source CARO DIBARDINO Start: 07-10-2019 CREATININE W/GFR POINT OF CARE CARO STOREY Start: 07-10-2019 LACTIC ACID,POINT OF CARE CARO DIBARDI NO Start: 07-10-2019 Potassium serum plasma/whole blood CARO CORNELIAARDINO Start: 07-10-2019 Sodium serum plasma or whole blood CARO CORNELIAARDINO Start: 07-10-2019 ABG DRAW CARO WRAYNO Start: 07-10-2019 ANION GAP (CALC) POC Caro Wrayno Work Phone: Start: 07-10-2019 ARTERIAL BLOOD GAS, POC Caro Wrayno Work Phone: Start: 07-10-2019 Blood count hemoglobin Caro Wrayno Work Phone: Start: 07-10-2019 CALCIUM, IONIC (POC) Caro Wrayno Work Phone: Start: 07-10-2019 Chloride [Moles/Vol] Caro Locketdno Work Phone: Start: 07-10-2019 CREATININE W/GFR POINT OF CARE Caro Estevezmadi Work Phone: Start: 07-10-2019 Gluc bld gluc mntr dev cleared fda spec home use Caro Wrayno Work Phone: Start: 07-10-2019 LACTIC ACID,POINT OF CARE Caro Locketd no Work Phone: Start: 07-10-2019 Potassium [Moles/Vol] Caro Locketdno Work Phone: Start: 07-10-2019 Sodium [Moles/Vol] Caro Lockeardino Work Phone: Start: 07-10-2019 Radiologic exam chest single view Brianna Welch Work Phone: Start: 07-10-2019 Ct head/brain w/o contrast material Vasiliy Garcia Work Phone: Start: 07-10-2019 Assay of magnesium Caro Locketdno Work Phone: Start: 07-10-2019 Assay of phosphorus inorganic Caro farnsworthdino Work Phone: Start: 07-10-2019 Basic metabolic panel calcium total Caro Locketdno Work Phone: Start: 07-10-2019 Blood count complete automated Caro Storey Work Phone: Start: 07-10-2019 Prothrombin time Caro Lockemanuel Work Phone: Start: 07-10-2019 Thromboplastin time partial plasma/whole blood Caro Lockeardino Work Phone: Start: 07-10-2019 ANION GAP (CALC) POC Caro Wrayno Work Phone: Start: 07-10-2019 ARTERIAL BLOOD GAS, POC Caro Wrayno Work Phone: Start: 07-10-2019 Blood count hemoglobin Caro Teresa Work Phone: Start: 07-10-2019 CALCIUM, IONIC (POC) [...] Work Phone: Start: 07-10-2019 Sodium [Moles/Vol] Caro Teresa Work Phone: Start: 07-10-2019 ABG DRAW Vasiliycarlos eduardo Garcia Work Phone: Start: 07-10-2019 INTAKE AND OUTPUT CARO TERESA Start: 07-10-2019 STRICT INTAKE AND OUTPUT CARO WRAYN O Start: 07-09-2019 REMOVE ARTERIAL LINE CARO TERESA Start: 07-09-2019 Glucose blood reagent strip CARO SMALLWOOD PATRICIA Start: 07-09-2019 Glucose blood reagent strip Caro Smallwood patricia Work Phone: Start: 07-09-2019 Thromboplastin time partial plasma/whole blood CARO TERESA Start: 07-09-2019 Glucose blood reagent strip CARO SMALLWOOD PATRICIA Start: 07-09-2019 Ecg routine ecg w/least 12 lds w/i&r CARO TERESA Start: 07-09-2019 EKG REPORT CARO TERESA Start: 07-09-2019 Thromboplastin time partial plasma/whole blood Vasiliy Garcia Work Phone: Start: 07-09-2019 Glucose blood reagent strip Caro Lockear patricia Work Phone: Start: 07-09-2019 Ecg routine ecg w/least 12 lds trcg only w/o i&r Nuha Coronel Work Phone: Start: 07-09-2019 EKG REPORT Hpf Scanning Start: 07-09-2019 CHEST TUBE REMOVAL CARO TERESA Start: 07-09-2019 Basic metabolic panel calcium total CARO LOCKEARDINO Start: 07-09-2019 Blood count complete automated CARO ESTEVEZINO Start: 07-09-2019 ARTERIAL BLOOD GAS, POC CARO LOCKEARDINO Start: 07-09-2019 LACTIC ACID,POINT OF CARE CARO WRAY NO Start: 07-09-2019 Potassium serum plasma/whole blood CARO WRAYNO Start: 07-09-2019 Glucose blood reagent strip CARO DIBAR PATRICIA Start: 07-09-2019 Basic metabolic panel calcium total Caro Wrayno Work Phone: Start: 07-09-2019 Blood count complete automated Caro Estevezino Work Phone: Start: 07-09-2019 ARTERIAL BLOOD GAS, POC Caro Lockeardino Work Phone: Start: 07-09-2019 LACTIC ACID,POINT OF CARE Caro Lockeardi no Work Phone: Start: 07-09-2019 Potassium [Moles/Vol] aCro Wrayno Work Phone: Start: 07-09-2019 Glucose blood reagent strip Caro Lockear patricia Work Phone: Start: 07-09-2019 INITIATE OXYGEN THERAPY PROTOCOL CARO TERESA Start: 07-09-2019 Glucose blood reagent strip CARO LOCKEAR PATRICIA Start: 07-09-2019 Radiologic exam chest single view CARO TERESA Start: 07-09-2019 Assay of magnesium CARO TERESA Start: 07-09-2019 Assay of phosphorus inorganic CARO FARNSWORTHDINO Start: 07-09-2019 Assay of triglycerides CARO DIBARDINO Start: 07-09-2019 Blood count complete automated CARO ZHONG BARDINO Start: 07-09-2019 Comprehensive metabolic panel CARO CORNELIA ARDINO Start: 07-09-2019 Prothrombin time CARO DIBARDINO Start: 07-09-2019 Thromboplastin time partial plasma/whole blood CARO DIBARDINO Start: 07-09-2019 Glucose blood reagent strip Caro Dibar patricia Work Phone: Start: 07-09-2019 Radiologic exam chest single view Brianna L Schelkun Work Phone: Start: 07-09-2019 Assay of magnesium Caro Dibardino Work Phone: Start: 07-09-2019 Assay of phosphorus inorganic Shant Ear ly Work Phone: Start: 07-09-2019 Assay of triglycerides Shant Early Work Phone: Start: 07-09-2019 Blood count complete automated Caro Zhong madi Work Phone: Start: 07-09-2019 Comprehensive metabolic panel Shant Ear ly Work Phone: Start: 07-09-2019 Prothrombin time Caro Lockeardino Work Phone: Start: 07-09-2019 Thromboplastin time partial plasma/whole blood Shant Early Work Phone: Start: 07-09-2019 INTAKE AND OUTPUT CARO DIBARDINO Start: 07-09-2019 STRICT INTAKE AND OUTPUT CARO DIBARDIN O Start: 07-09-2019 Assay of ammonia CARO DIBARDINO Start: 07-09-2019 Hepatic function panel CARO DIBARDINO Start: 07-08-2019 Glucose blood reagent strip CARO DIBAR PATRICIA Start: 07-08-2019 Assay of ammonia Brianna L Schelkun Work Phone: Start: 07-08-2019 Hepatic function panel Brianna L Schelkun Work Phone: Start: 07-08-2019 Glucose blood reagent strip Caro Dibar patricia Work Phone: Start: 07-08-2019 Glucose blood reagent strip CARO DIBAR PATRICIA Start: 07-08-2019 Basic metabolic panel calcium total CARO DIBARDINO Start: 07-08-2019 Glucose blood reagent strip Caro [...] home use Caro Lockeardino Work Phone: Start: 07-08-2019 Potassium [Moles/Vol] Caro Corneliaardino Work Phone: Start: 07-08-2019 Glucose blood reagent strip CARO DIBAR PATRICIA Start: 07-08-2019 Radiologic exam abdomen 1 view CARO FARHEEN ADLER Start: 07-08-2019 IP CONSULT TO DIETITIAN CARO TERESA Start: 07-08-2019 ELEVATE HOB CARO TERESA Start: 07-08-2019 STRICT INTAKE AND OUTPUT CARO WRAYN O Start: 07-08-2019 Glucose blood reagent strip Caro Dibar patricia Work Phone: Start: 07-08-2019 ARTERIAL BLOOD GAS, POC CARO DIBARDINO Start: 07-08-2019 ABG DRAW CARO LOCKEARDINO Start: 07-08-2019 Radiologic exam abdomen 1 view Shant Koko baird Work Phone: Start: 07-08-2019 INITIATE OXYGEN THERAPY PROTOCOL CARO WRAYNO Start: 07-08-2019 Glucose blood reagent strip CARO DIBAR PATRICIA Start: 07-08-2019 ARTERIAL BLOOD GAS, POC Caro Dibardino Work Phone: Start: 07-08-2019 ABG DRAW Brianna Welch Work Phone: Start: 07-08-2019 Ct head/brain w/o contrast material CARO TERESA Start: 07-08-2019 Radiologic exam chest single view CARO DIBARDINO Start: 07-08-2019 Glucose blood reagent strip Caro Dibar patricia Work Phone: Start: 07-08-2019 Ct head/brain w/o contrast material Xavier Henriquez Work Phone: Start: 07-08-2019 Assay of magnesium CARO DIBARDINO Start: 07-08-2019 Basic metabolic panel calcium total CARO DIBARDINO Start: 07-08-2019 Blood count complete automated CARO DI BARDINO Start: 07-08-2019 Prothrombin time CARO DIBARDINO Start: 07-08-2019 Radiologic exam chest single view Brianna Welch Work Phone: Start: 07-08-2019 Assay of magnesium [...] 07-07-2019 CREATININE W/GFR POINT OF CARE CARO ESTEVEZMADI Start: 07-07-2019 Gluc bld gluc mntr dev cleared fda spec home use CARO LOCKEMANUEL Start: 07-07-2019 LACTIC ACID,POINT OF CARE CARO LOCKETD NO Start: 07-07-2019 Potassium serum plasma/whole blood CARO WRAYNO Start: 07-07-2019 Sodium serum plasma or whole blood CARO WRAYNO Start: 07-07-2019 BASIC METABOLIC PANEL W/ REFLEX TO MG FOR LOW K Caro Teresa Work Phone: Start: 07-07-2019 Glucose blood reagent strip Caro Selin patricia Work Phone: Start: 07-07-2019 EXTUBATION CARO TERESA Start: 07-07-2019 ANION GAP (CALC) POC Caro Corneliamanuel Work Phone: Start: 07-07-2019 ARTERIAL BLOOD GAS, POC Caro Teresa Work Phone: Start: 07-07-2019 Blood count hemoglobin Caro Lockemanuel Work Phone: Start: 07-07-2019 CALCIUM, IONIC (POC) Caro Lockemanuel Work Phone: Start: 07-07-2019 Chloride [Moles/Vol] Caro Corneliamanuel Work Phone: Start: 07-07-2019 CREATININE W/GFR POINT OF CARE Caro Storey Work Phone: Start: 07-07-2019 Gluc bld gluc mntr dev cleared fda spec home use Caro Lockemanuel Work Phone: Start: 07-07-2019 LACTIC ACID,POINT OF CARE Caro Locketd no Work Phone: Start: 07-07-2019 Potassium [Moles/Vol] Caro Teresa Work Phone: Start: 07-07-2019 Sodium [Moles/Vol] Caro Wrayno Work Phone: Start: 07-07-2019 Ecg routine ecg w/least 12 lds w/i&r CARO TERESA Start: 07-07-2019 EKG REPORT CARO TERESA Start: 07-07-2019 ARTERIAL BLOOD GAS, POC CARO LOCKEARDINO Start: 07-07-2019 Potassium serum plasma/whole blood CARO LOCKEARDINO Start: 07-07-2019 EXTUBATION Brianna Caballero Christcarrie Work Phone: Start: 07-07-2019 IP CONSULT TO NEUROLOGY CARO TERESA Start: 07-07-2019 Ecg routine ecg w/least 12 lds i&r only Caro Teresa Work Phone: Start: 07-07-2019 EKG REPORT Hpf Scanning Start: 07-07-2019 Glucose blood reagent strip CARO SMALLWOOD PATRICIA Start: 07-07-2019 TRANSFER PATIENT CARO TERESA Start: 07-07-2019 ARTERIAL BLOOD GAS, POC Caro Teresa Work Phone: Start: 07-07-2019 Potassium [Moles/Vol] Caro Wrayno Work Phone: Start: 07-07-2019 TRANSFER PATIENT CARO TERESA Start: 07-07-2019 Glucose blood reagent strip Caro farleyo Work Phone: Start: 07-07-2019 Ecg routine ecg w/least 12 lds w/i&r CARO WRAYNO Start: 07-07-2019 EKG REPORT CARO TERESA Start: 07-07-2019 ARTERIAL BLOOD GAS, POC CARO WRAYNO Start: 07-07-2019 Calcium ionized CARO WRAYNO Start: 07-07-2019 Gluc bld gluc mntr dev cleared fda spec home use CARO WRAYNO Start: 07-07-2019 Potassium serum plasma/whole blood CARO LOCKEARDINO Start: 07-07-2019 INITIATE OXYGEN THERAPY PROTOCOL CARO WRAYNO Start: 07-07-2019 Echo transthorc r-t 2d w/wo m-mode rec f-up/lmtd CARO LOCKEARDINO Start: 07-07-2019 Ecg routine ecg w/least 12 lds i&r only Caro Teresa Work Phone: Start: 07-07-2019 EKG REPORT Hpf Scanning Start: 07-07-2019 ARTERIAL BLOOD GAS, POC Caro Wrayno Work Phone: Start: 07-07-2019 CALCIUM, IONIC (POC) Caro Dibardino Work Phone: Start: 07-07-2019 Gluc bld gluc mntr dev cleared fda spec home use Caro Dibardino Work Phone: Start: 07-07-2019 Potassium [Moles/Vol] Caro Lockeardino Work Phone: Start: 07-07-2019 Glucose blood reagent strip CARO DIBAR PATRICIA Start: 07-07-2019 ECHOCARDIOGRAM LIMITED Janusz Dakota Work Phone: Start: 07-07-2019 Radiologic exam chest single view CARO LOCKEARDINO Start: 07-07-2019 Glucose blood reagent strip Caro Dibar patricia Work Phone: Start: 07-07-2019 ARTERIAL BLOOD GAS, POC CARO DIBARDINO Start: 07-07-2019 Radiologic exam chest single view Vasiliy Garcia Work Phone: Start: 07-07-2019 Ecg routine ecg w/least 12 lds w/i&r CARO DIBARDINO Start: 07-07-2019 EKG REPORT CARO CORNELIAARDINO Start: 07-07-2019 Assay of magnesium CARO LOCKEARDINO Start: 07-07-2019 Basic metabolic panel calcium total CARO DIBTDNO Start: 07-07-2019 Blood count complete automated CARO STOREY Start: 07-07-2019 Drug screen quantitative vancomycin CARO DIBTDNO Start: 07-07-2019 Prothrombin time CARO WRAYNO Start: 07-07-2019 ABG DRAW CARO WRAYNO Start: 07-07-2019 ARTERIAL BLOOD GAS, POC CARO DIBARDINO Start: 07-07-2019 Gluc bld gluc mntr dev cleared fda spec home use CARO DIBARDINO Start: 07-07-2019 ARTERIAL BLOOD GAS, POC Caro Dibardino Work Phone: Start: 07-07-2019 Ecg routine ecg w/least 12 lds trcg only w/o i&r Caro Lockeardino Work Phone: Start: 07-07-2019 EKG REPORT Hpf Scanning Start: 07-07-2019 Assay of magnesium Caro Lockeardino Work Phone: Start: 07-07-2019 Basic metabolic panel calcium total Caro Teresa Work Phone: Start: 07-07-2019 Blood count complete automated Caro Storey Work Phone: Start: 07-07-2019 Drug screen quantitative vancomycin Caro Teresa Work Phone: Start: 07-07-2019 Prothrombin time Caro Teresa Work Phone: Start: 07-07-2019 End: 07-07-2019 ABG DRAW Brianna Welch Work Phone: Start: 07-07-2019 ARTERIAL BLOOD GAS, POC Caro Lockemanuel Work Phone: Start: 07-07-2019 Gluc bld gluc mntr dev cleared fda spec home use Caro Wraymolly Work Phone: Start: 07-07-2019 INTAKE AND OUTPUT CARO LOCKEMANUEL Start: 07-06-2019 ELEVATE HEELS OFF OF BED CARO TALAVERA O Start: 07-06-2019 HEAD OF BED 60 DEGREES OR LESS CARO ZHONG MADI Start: 07-06-2019 NURSING COMMUNICATION CARO LOCKEMANUEL Start: 07-06-2019 TURN PATIENT CARO LOCKEMANUEL Start: 07-06-2019 RESTRAINTS NON-VIOLENT OR [id number] CARO MALICK Start: 07-06-2019 Glucose blood reagent strip CARO SELIN FARLEYO Start: 07-06-2019 POC BLOOD GAS CARO DIBMANUEL Start: 07-06-2019 Ct head/brain w/o contrast material CARO DIBMANUEL Start: 07-06-2019 Glucose blood reagent strip Caro Lockejavad patricia Work Phone: Start: 07-06-2019 ARTERIAL BLOOD GAS, POC CARO DIBTDNO Start: 07-06-2019 Gluc bld gluc mntr dev cleared fda spec home use CARO CORNELIAARDINO Start: 07-06-2019 Ecg routine ecg w/least 12 lds w/i&r CARO TERESA Start: 07-06-2019 EKG REPORT CARO TERESA Start: 07-06-2019 Ct head/brain w/o contrast material Vasiliy Garcia Work Phone: Start: 07-06-2019 Basic metabolic panel calcium total CARO LOCKEARDINO Start: 07-06-2019 ARTERIAL BLOOD GAS, POC Caro Dibardino Work Phone: Start: 07-06-2019 Gluc bld gluc mntr dev cleared fda spec home use Caro Dibardino Work Phone: Start: 07-06-2019 Ecg routine ecg w/least 12 lds trcg only w/o i&r Nuha Iveyod Work Phone: Start: 07-06-2019 EKG REPORT Hpf Scanning Start: 07-06-2019 Basic metabolic panel calcium total Vasiliy Garcia Work Phone: Start: 07-06-2019 Gluc bld [...] CARO LOCKEARDINO Start: 07-06-2019 EKG REPORT CARO CORNELIAARDINO Start: 07-06-2019 POC BLOOD GAS CARO DIBARDINO Start: 07-06-2019 INITIATE OXYGEN THERAPY PROTOCOL CARO CORNELIAARDINO Start: 07-06-2019 End: 07-06-2019 ARTERIAL BLOOD GAS, POC Caro Dibardino Work Phone: Start: 07-06-2019 Gluc bld gluc mntr dev cleared fda spec home use Caro Dibardino Work Phone: Start: 07-06-2019 Ecg routine ecg w/least 12 lds w/i&r CARO DIBARDINO Start: 07-06-2019 Ecg routine ecg w/least 12 lds i&r only Caro Dibardino Work Phone: Start: 07-06-2019 EKG REPORT Hpf Scanning Start: 07-06-2019 Radiologic exam chest single view CARO DIBARDINO Start: 07-06-2019 Ecg routine ecg w/least 12 [...] 07-06-2019 Radiologic exam chest single view Shant Michel Work Phone: Start: 07-06-2019 Assay of magnesium [...] Work Phone: Start: 07-05-2019 RESTRAINTS NON-VIOLENT OR [id number] CARO TERESA Start: 07-05-2019 Basic metabolic panel calcium total CARO TERESA Start: 07-05-2019 Glucose blood reagent strip CARO GOMEZ Start: 07-05-2019 Basic metabolic panel calcium total Evelio Hai Work Phone: Start: 07-05-2019 Glucose blood reagent strip Caro gomez Work Phone: Start: 07-05-2019 Assay of urine sodium CARO TERESA Start: 07-05-2019 Chloride urine CARO TERESA Start: 07-05-2019 Creatinine other source CARO TERESA Start: 07-05-2019 Potassium urine CARO TERESA Start: 07-05-2019 Protein electrop fxj&mynor oth flus concentrati CARO TERESA Start: 07-05-2019 Urnls dip stick/tablet reagent auto microscopy CARO WRAYMOLLY Start: 07-05-2019 Antinuclear antibodies teto CARO JACKSON MADI Start: 07-05-2019 Complement antigen each component CARO TERESA Start: 07-05-2019 Immunofixj electrophoresis serum CARO TERESA Start: 07-05-2019 Protein electrophoretic fractj&quantj serum CARO TERESA Start: 07-05-2019 Acute hepatitis panel CARO TERESA Start: 07-05-2019 Assay of ammonia CARO TERESA Start: 07-05-2019 BL GAS,MIX-RUFINO,EXT Caro Teresa Work [...] Protein electrop fxj&mynor oth flus concentrati Ashley Cesar Work Phone: Start: 07-05-2019 Urnls dip stick/tablet reagent auto microscopy Ashley Cesar Work Phone: Start: 07-05-2019 Antinuclear antibodies teto Ashley Cesar Work Phone: Start: 07-05-2019 Complement antigen each component Ashley Cesar Work Phone: Start: 07-05-2019 GENERIC LABORATORY CHARGE Ashley Cesar Work Phone: Start: 07-05-2019 Protein electrophoretic fractj&quantj serum Ashley Cesar Work Phone: Start: 07-05-2019 Acute hepatitis panel Ashley Cesar Work Phone: Start: 07-05-2019 Assay of ammonia Shant Pearson Work Phone: Start: 07-05-2019 Glucose blood reagent strip Caro Selin gomez Work Phone: Start: 07-05-2019 Ecg routine [...] Start: 07-05-2019 LACTIC ACID,POINT OF CARE CARO WRAY NO Start: 07-05-2019 Sodium serum plasma or whole blood CARO LOCKEARDINO Start: 07-05-2019 Radiologic exam chest single view CARO LOCKETDNO Start: 07-05-2019 Assay of magnesium CARO LOCKETDNO Start: 07-05-2019 Basic metabolic panel calcium total CARO LOCKEARDINO Start: 07-05-2019 Blood count complete automated CARO ZHONG VITOR Start: 07-05-2019 Prothrombin time CARO LOCKETDNO Start: 07-05-2019 ANION GAP (CALC) POC CARO LOCKEARDINO Start: 07-05-2019 ARTERIAL BLOOD GAS, POC CARO LOCKEARDINO Start: 07-05-2019 Calcium ionized CARO LOCKETDNO Start: 07-05-2019 Chloride other source CARO LOCKEARDINO Start: 07-05-2019 CREATININE W/GFR POINT OF CARE CARO DI VITOR Start: 07-05-2019 LACTIC ACID,POINT OF CARE CARO LOCKETD NO Start: 07-05-2019 Potassium serum plasma/whole blood CARO LOCKETDNO Start: 07-05-2019 Sodium serum plasma or whole blood CARO LOCKEARDINO Start: 07-05-2019 Glucose blood reagent strip Caro Smallwood patricia Work Phone: Start: 07-05-2019 ANION GAP (CALC) POC Caro Lockeardino Work Phone: Start: 07-05-2019 ARTERIAL BLOOD GAS, POC Caro Lockeardino Work Phone: Start: 07-05-2019 Blood count hemoglobin Caro Locketdno Work Phone: Start: 07-05-2019 CALCIUM, IONIC (POC) Caro Lockeardino Work Phone: Start: 07-05-2019 Chloride [Moles/Vol] Caro Dibtdno Work Phone: Start: 07-05-2019 CREATININE W/GFR POINT OF CARE Caro Di vitor Work Phone: Start: 07-05-2019 Gluc bld gluc mntr dev cleared fda spec home use Caro Locketdno Work Phone: Start: 07-05-2019 LACTIC ACID,POINT OF [...] [Moles/Vol] Caro Teresa Work Phone: Start: 07-05-2019 Blood gases any combination ph pco2 po2 co2 hco3 CARO DIBARDINO Start: 07-05-2019 INTAKE AND OUTPUT CARO DIBARDINO Start: 07-05-2019 PATIENT MAY SHOWER CARO LOCKEARDINO Start: 07-05-2019 Glucose blood reagent strip CARO [...] Work Phone: Start: 07-04-2019 RESTRAINTS NON-VIOLENT OR [id number] CARO DIBARDINO Start: 07-04-2019 Glucose blood reagent [...] Phone: Start: 07-04-2019 Blood count hemoglobin Caro Lockeardino Work Phone: Start: 07-04-2019 Calcium ionized Caro [...] Start: 07-04-2019 Blood count complete automated CARO DI VITOR Start: 07-04-2019 ANION GAP (CALC) POC CARO DIBARDINO Start: 07-04-2019 ARTERIAL BLOOD GAS, POC CARO DIBARDINO Start: 07-04-2019 Blood count hemoglobin CARO LOCKEARDINO Start: 07-04-2019 Calcium ionized CARO DIBARDINO Start: 07-04-2019 Chloride other source CARO DIBARDINO Start: 07-04-2019 CREATININE W/GFR POINT OF CARE CARO ESTEVEZINO Start: 07-04-2019 Gluc bld gluc mntr dev cleared fda spec home use CARO LOCKEARDINO Start: 07-04-2019 LACTIC ACID,POINT OF CARE CARO LOCKEARDI NO Start: 07-04-2019 Sodium serum plasma or whole blood CARO LOCKEARDINO Start: 07-04-2019 TRANSFER PATIENT CARO LOCKEARDINO Start: 07-04-2019 Radiologic exam chest single view Caro Lockeardino Work Phone: Start: 07-04-2019 INITIATE OXYGEN THERAPY PROTOCOL CARO DIBARDINO Start: 07-04-2019 Assay of lactate Caro Dibardino Work Phone: Start: 07-04-2019 Assay of magnesium Caro Lockeardino Work Phone: Start: 07-04-2019 Basic metabolic panel calcium total Caro Teresa Work Phone: Start: 07-04-2019 Blood count complete automated Caro Storey Work Phone: Start: 07-04-2019 Calcium ionized Caro Wrayno Work Phone: Start: 07-04-2019 OPEN HEART COAG Caro Lockemanuel Work Phone: Start: 07-04-2019 ANION GAP (CALC) POC Caro Locketdno Work Phone: Start: 07-04-2019 ARTERIAL BLOOD GAS, POC Caro Locketdno Work Phone: Start: 07-04-2019 Blood count hemoglobin Caro Lockemanuel Work Phone: Start: 07-04-2019 CALCIUM, IONIC (POC) Caro Locketdno Work Phone: Start: 07-04-2019 Chloride [Moles/Vol] Caro Lockemanuel Work Phone: Start: 07-04-2019 CREATININE W/GFR POINT OF CARE Caro Storey Work Phone: Start: 07-04-2019 Gluc bld gluc mntr dev cleared fda spec home use Caro Wraymolly Work Phone: Start: 07-04-2019 LACTIC ACID,POINT OF CARE Caro Locketd schroeder Work Phone: Start: 07-04-2019 Potassium [Moles/Vol] Caro Corneliamanuel Work Phone: Start: 07-04-2019 Sodium [Moles/Vol] Caro Locketdno Work Phone: Start: 07-04-2019 Transfusion blood/blood components CARO TERESA Start: 07-04-2019 TRANSFUSE PLATELETS CARO TERESA Start: 07-04-2019 Radiologic exam chest single view CARO TERESA Start: 07-04-2019 Transfusion blood/blood components CARO ETRESA Start: 07-04-2019 Glucose blood reagent strip CARO GOMEZ Start: 07-04-2019 End: 07-04-2019 Secondary closure surg wound/dehsn extsv/complic Caro Wraymolly Work Phone: Start: 07-04-2019 Assay of magnesium CARO WRAYNO Start: 07-04-2019 Basic metabolic panel calcium total CARO LOCKEARDINO Start: 07-04-2019 Blood count complete automated CARO ZHONG VITOR Start: 07-04-2019 Prothrombin time CARO LOCKEARDINO Start: 07-04-2019 TRANSFUSE PLATELETS Caro Locketdno Work Phone: Start: 07-04-2019 ANION GAP (CALC) POC CARO LOCKEARDINO Start: 07-04-2019 ARTERIAL BLOOD GAS, POC CARO LOCKEARDINO Start: 07-04-2019 Blood count hemoglobin CARO LOCKETDNO Start: 07-04-2019 Calcium ionized CARO LOCKETDNO Start: 07-04-2019 Chloride other source CARO LOCKETDNO Start: 07-04-2019 CREATININE W/GFR POINT OF CARE CAROCHANELL ESTEVEZMADI Start: 07-04-2019 Gluc bld gluc mntr dev cleared fda spec home use CARO WRAYNO Start: 07-04-2019 LACTIC ACID,POINT OF CARE CARO WRAY NO Start: 07-04-2019 Sodium serum plasma or whole blood CARO WRAYNO Start: 07-04-2019 Radiologic exam chest single view Caro Lockemanuel Work Phone: Start: 07-04-2019 TRANSFUSE FRESH FROZEN PLASMA CARO LOCKE MANUEL Start: 07-04-2019 PREPARE PLATELETS Caro Lockemanuel Work Phone: Start: 07-04-2019 Glucose blood reagent strip Caro Lockejavad patricia Work Phone: Start: 07-04-2019 End: 07-05-2019 Assay of magnesium Caro Lockemanuel Work Phone: Start: 07-04-2019 Basic metabolic panel calcium total Caro Locketdno Work Phone: Start: 07-04-2019 Blood count complete automated Caro Zhong vitor Work Phone: Start: 07-04-2019 Prothrombin time Caro Locketdno Work Phone: Start: 07-04-2019 ANION GAP (CALC) POC Caro Locketdno Work Phone: Start: 07-04-2019 ARTERIAL BLOOD GAS, POC Caro Locketdno Work Phone: Start: 07-04-2019 Blood count hemoglobin Caro Locketdno Work Phone: Start: 07-04-2019 CALCIUM, IONIC (POC) Caro Wrayno Work Phone: Start: 07-04-2019 Chloride [Moles/Vol] Caro Corneliamanuel Work Phone: Start: 07-04-2019 CREATININE W/GFR POINT OF CARE Caro Storey Work Phone: Start: 07-04-2019 Gluc bld gluc mntr dev cleared fda spec home use Caro Lockemanuel Work Phone: Start: 07-04-2019 Glucose blood reagent strip Caro Smallwood patricia Work Phone: Start: 07-04-2019 LACTIC ACID,POINT OF CARE Caro Wray no Work Phone: Start: 07-04-2019 Potassium [Moles/Vol] Caro Teresa Work Phone: Start: 07-04-2019 Sodium [Moles/Vol] Caro Teresa Work Phone: Start: 07-04-2019 ANION GAP (CALC) POC CARO TERESA Start: 07-04-2019 ARTERIAL BLOOD GAS, POC CARO WRAYNO Start: 07-04-2019 Calcium ionized CARO TERESA Start: 07-04-2019 Chloride other source CARO TERESA Start: 07-04-2019 CREATININE W/GFR POINT OF CARE CARO STOREY Start: 07-04-2019 LACTIC ACID,POINT OF CARE CARO LOCKEARDI NO Start: 07-04-2019 Sodium serum plasma or whole blood CARO TERESA Start: 07-04-2019 TRANSFUSE FRESH FROZEN PLASMA Caro jackson Work Phone: Start: 07-04-2019 Glucose blood reagent strip CARO SMALLWOOD PATRICIA Start: 07-04-2019 ANION GAP (CALC) POC Caro Teresa Work Phone: Start: 07-04-2019 ARTERIAL BLOOD GAS, POC Caro Teresa Work Phone: Start: 07-04-2019 Blood count hemoglobin Carochanell Teresa Work Phone: Start: 07-04-2019 CALCIUM, IONIC (POC) Caro Teresa Work Phone: Start: 07-04-2019 Chloride [Moles/Vol] Caro Teresa Work Phone: Start: 07-04-2019 CREATININE W/GFR POINT OF CARE Carochanell Storey Work Phone: Start: 07-04-2019 Gluc bld gluc mntr dev cleared fda spec home use Caro Teresa Work Phone: Start: 07-04-2019 LACTIC ACID,POINT OF CARE Caro schroeder Work Phone: Start: 07-04-2019 Potassium [Moles/Vol] [...] complete auto&auto difrntl wbc CARO TERESA Start: 07-04-2019 Fibrinogen activity CARO TERESA Start: 07-04-2019 Hepatic function panel CARO TERESA Start: 07-04-2019 Prothrombin time CARO TERESA Start: 07-04-2019 TRANSFUSE FRESH FROZEN PLASMA CARO FARNSWORTHMARTINEO Start: 07-04-2019 ANION GAP (CALC) POC CARO TERESA Start: 07-04-2019 ARTERIAL BLOOD GAS, POC CARO TERESA Start: 07-04-2019 Blood count hemoglobin CARO TERESA Start: 07-04-2019 Calcium ionized CARO TERESA Start: 07-04-2019 Chloride other source CARO TERESA Start: 07-04-2019 CREATININE W/GFR POINT OF CARE CARO STOREY Start: 07-04-2019 Gluc bld gluc mntr dev cleared fda spec home use CARO TERESA Start: 07-04-2019 LACTIC ACID,POINT OF CARE CARO WRAY NO Start: 07-04-2019 Potassium serum plasma/whole blood CARO TERESA Start: 07-04-2019 Sodium serum plasma or whole blood CARO WRAYMOLLY Start: 07-04-2019 Ecg routine ecg w/least 12 lds w/i&r CARO WRAYMOLLY Start: 07-04-2019 TRANSFER PATIENT CARO WRAYMOLLY Start: 07-04-2019 TRANSFUSE PLATELETS CARO LOCKEMANUEL Start: 07-04-2019 Transfusion blood/blood components CARO LOCKEMANUEL Start: 07-04-2019 Glucose blood reagent strip Caro Selin gomez Work Phone: Start: 07-04-2019 OPEN HEART COAG Caro Lockemanuel Work Phone: Start: 07-03-2019 Ecg routine ecg w/least 12 lds i&r only Caro Lockemanuel Work Phone: Start: 07-04-2019 EKG REPORT Hpf Scanning Start: 07-03-2019 Antibody alejandro-hughes eb virus nuclear ag ebna CARO MALICK Start: 07-03-2019 Blood count complete automated CARO STOREY Start: 07-03-2019 Reticulated platelet assay CARO ANDINO Start: 07-03-2019 BL GAS,MIX-RUFINO,EXT Caro Teresa Work [...] Phone: Start: 07-03-2019 Hepatic function panel Caro Locektdmolly Work Phone: Start: 07-03-2019 Prothrombin time Caro Teresa Work Phone: Start: 07-03-2019 TRANSFUSE FRESH FROZEN PLASMA Dominguez monk Work Phone: Start: 07-03-2019 ANION GAP (CALC) POC Caro Teresa Work Phone: Start: 07-03-2019 ARTERIAL BLOOD GAS, POC Caro Teresa Work Phone: Start: 07-03-2019 Blood count hemoglobin Caro Lockemanuel Work Phone: Start: 07-03-2019 CALCIUM, IONIC (POC) Caro Lockemanuel Work Phone: Start: 07-03-2019 Chloride [Moles/Vol] Caro Lockemanuel Work Phone: Start: 07-03-2019 CREATININE W/GFR POINT OF CARE Caro Storey Work Phone: Start: 07-03-2019 Gluc bld gluc mntr dev cleared fda spec home use Caro Malick Work Phone: Start: 07-03-2019 LACTIC ACID,POINT OF CARE Caro Wray no Work Phone: Start: 07-03-2019 Potassium [Moles/Vol] Caro Dibmanuel Work Phone: Start: 07-03-2019 Sodium [Moles/Vol] Caro Dibmanuel Work Phone: Start: 07-03-2019 POC KAOLIN TEG CARO TERESA Start: 07-03-2019 POC KAOLIN TEG WITH HEPARIN CARO GOMEZ Start: 07-03-2019 Ecg routine ecg w/least 12 lds i&r only Caro Lockemanuel Work Phone: Start: 07-03-2019 EKG REPORT Hpf Scanning Start: 07-03-2019 ANION GAP (CALC) POC CARO TERESA Start: 07-03-2019 ARTERIAL BLOOD GAS, POC CARO TERESA Start: 07-03-2019 Chloride other source CARO TERESA Start: 07-03-2019 CREATININE W/GFR POINT OF CARE CARO STOREY Start: 07-03-2019 LACTIC ACID,POINT OF CARE CARO LOCKETD NO Start: 07-03-2019 Potassium serum plasma/whole blood CARO CORNELIAMANUEL Start: 07-03-2019 Sodium serum plasma or whole blood CARO TERESA Start: 07-03-2019 Radiologic exam chest single view CARO TERESA Start: 07-03-2019 TRANSFUSE PLATELETS Caro Teresa Work Phone: Start: 07-03-2019 End: 07-03-2019 Glucose blood reagent strip Caro Selin gomez Work Phone: Start: 07-03-2019 Level iv surg pathology gross&microscopic exam CARO TERESA Start: 07-03-2019 End: 07-03-2019 PREPARE FRESH FROZEN PLASMA Caro gomez Work Phone: Start: 07-03-2019 PREPARE PLATELETS Caro Teresa Work Phone: Start: 07-03-2019 Blood count hemoglobin CARO TERESA Start: 07-03-2019 Gluc bld gluc mntr dev cleared fda spec home use CARO TERESA Start: 07-03-2019 Assay of magnesium Caro Teresa Work Phone: Start: 07-03-2019 Basic metabolic panel calcium total Caro Lockeardino Work Phone: Start: 07-03-2019 Blood count complete automated Caro Estevezmadi Work Phone: Start: 07-03-2019 Calcium ionized Caro Lockeardino Work Phone: Start: 07-03-2019 IMMATURE PLATELET FRACTION Caro Lockeellyn madi Work Phone: Start: 07-03-2019 OPEN HEART COAG Caro Lockeardino Work Phone: Start: 07-03-2019 ANION GAP (CALC) POC CARO DIBARDINO Start: 07-03-2019 ARTERIAL BLOOD GAS, POC CARO DIBARDINO Start: 07-03-2019 Chloride other source CARO LOCKEARDINO Start: 07-03-2019 CREATININE W/GFR POINT OF CARE CARO STOREY Start: 07-03-2019 LACTIC ACID,POINT OF CARE CARO DIBTD NO Start: 07-03-2019 Potassium serum plasma/whole blood CARO LOCKEARDINO Start: 07-03-2019 Sodium serum plasma or whole blood CARO LOCKEARDINO Start: 07-03-2019 End: 07-03-2019 POC KAOLIN TEG Caro Corneliatdno Work Phone: Start: 07-03-2019 End: 07-03-2019 POC KAOLIN TEG WITH HEPARIN Caro Selin gomez Work Phone: Start: 07-03-2019 Transfusion blood/blood components CARO WRAYNO Start: 07-03-2019 End: 07-03-2019 ANION GAP (CALC) POC Caro Dibardino Work Phone: Start: 07-03-2019 End: 07-03-2019 ARTERIAL BLOOD GAS, POC Caro Dibardino Work Phone: Start: 07-03-2019 End: 07-03-2019 Blood count hemoglobin Caro Corneliaardino Work Phone: Start: 07-03-2019 End: 07-03-2019 CALCIUM, IONIC (POC) Caro Dibardino Work Phone: Start: 07-03-2019 End: 07-03-2019 Chloride [...] TERESA Start: 07-03-2019 Chloride other source CARO DIBMANUEL Start: 07-03-2019 Potassium serum plasma/whole blood CARO TERESA Start: 07-03-2019 Sodium serum plasma or whole blood CARO TERESA Start: 07-03-2019 End: 07-03-2019 TRANSFUSE RED BLOOD CELLS Caro Locketd no Work Phone: Start: 07-03-2019 End: 07-03-2019 ANION GAP (CALC) POC Caro Lockemanuel Work Phone: Start: 07-03-2019 End: 07-03-2019 ARTERIAL BLOOD GAS, POC Caro Lockemanuel Work Phone: Start: 07-03-2019 End: 07-03-2019 Blood count hemoglobin Caro Lockemanuel Work Phone: Start: 07-03-2019 End: 07-03-2019 CALCIUM, IONIC (POC) Carochanell Teresa Work Phone: Start: 07-03-2019 End: 07-03-2019 Chloride [Moles/Vol] Caro Teresa Work Phone: Start: 07-03-2019 End: 07-03-2019 CREATININE W/GFR POINT OF CARE Caro Farheen adler Work Phone: Start: 07-03-2019 End: 07-03-2019 Gluc bld gluc mntr dev cleared fda spec home use Caro Lockemanuel Work Phone: Start: 07-03-2019 End: 07-03-2019 LACTIC ACID,POINT OF CARE Caro Locketd schroeder Work Phone: Start: 07-03-2019 End: 07-03-2019 [...] TERESA Start: 07-03-2019 CARDIAC STERNAL PRECAUTION CARO JACKSON MADI Start: 07-03-2019 ELEVATE HOB CARO TERESA Start: 07-03-2019 INITIATE OXYGEN THERAPY PROTOCOL CARO TERESA Start: 07-03-2019 NASOGASTRIC TUBE MAINTENANCE CARO DE LA CRUZ Start: 07-03-2019 NURSING COMMUNICATION CARO TERESA Start: 07-03-2019 WOUND CARE CARO TERESA Start: 07-03-2019 FULL CODE CARO TERESA Start: 07-03-2019 INTAKE AND OUTPUT CARO TERESA Start: 07-03-2019 MISCELLANEOUS NURSING CARE ORDER (SPECIFY) CARO TERESA Start: 07-03-2019 NOTIFY PHYSICIAN (SPECIFY) CARO JACKSON MADI Start: 07-03-2019 TELEMETRY MONITORING CARO TERESA Start: 07-03-2019 UP IN CHAIR CARO TERESA Start: 07-03-2019 POC KAOLIN TEG CARO LOCKEARDINO Start: 07-03-2019 POC KAOLIN TEG WITH HEPARIN CARO SMALLWOOD PATRICIA Start: 07-03-2019 ARTERIAL BLOOD GAS, POC CARO LOCKEARDINO Start: 07-03-2019 Sodium serum plasma or whole blood CARO LOCKEARDINO Start: 07-03-2019 Ecg routine ecg w/least 12 lds i&r only Vasiliy Garcia Work Phone: Start: 07-03-2019 EKG REPORT Hpf Scanning Start: 07-03-2019 End: 07-03-2019 CABG CORONARY ARTERY BYPASS AORTIC AND MITRAL VALVE REP REDO Caro Malick Work Phone: Start: 07-03-2019 End: 07-03-2019 TRANSFUSE RED BLOOD CELLS Caro Anna no Work Phone: Start: 07-03-2019 TRANSFUSE RED BLOOD CELLS CARO ANNA NO Start: 07-03-2019 Assay of magnesium Vasiliy Garcia Work Phone: Start: 07-03-2019 Basic metabolic panel calcium total Dominguez Plummer Work Phone: Start: 07-03-2019 Blood count platelet automated Vasiliy Garcia Work Phone: Start: 07-03-2019 Calcium ionized Caro Corneliamanuel Work Phone: Start: 07-03-2019 Fibrinogen activity Vasiliy Garcia Work Phone: Start: 07-03-2019 Prothrombin time Dominguez Plummer Work Phone: Start: 07-03-2019 Thromboplastin time partial plasma/whole blood Vasiliy Garcia Work Phone: Start: 07-03-2019 ANION GAP (CALC) POC Caro Dibtdno Work Phone: Start: 07-03-2019 ARTERIAL BLOOD GAS, POC Caro Lockeardino Work Phone: Start: 07-03-2019 Blood count hemoglobin Caro Wrayno Work Phone: Start: 07-03-2019 CALCIUM, IONIC (POC) Caro Lockeardino Work Phone: Start: 07-03-2019 Chloride [Moles/Vol] Caro Lockeardino Work Phone: Start: 07-03-2019 Gluc bld gluc mntr dev cleared fda spec home use Caro Wrayno Work Phone: Start: 07-03-2019 Potassium [Moles/Vol] Caro Lockeardino Work Phone: Start: 07-03-2019 Sodium [Moles/Vol] Caro Lockeardino Work Phone: Start: 07-03-2019 PREPARE RBC (CROSSMATCH) CARO WRAYN O Start: 07-03-2019 Radiologic exam chest single view Vasiliy Garcia Work Phone: Start: 07-03-2019 Potassium serum plasma/whole blood CARO TERESA Start: 07-03-2019 Level iv surg pathology gross&microscopic exam CARO TERESA Start: 07-03-2019 POC KAOLIN TEG Caro Teresa Work Phone: Start: 07-03-2019 POC KAOLIN TEG WITH HEPARIN Caro gomez Work Phone: Start: 07-03-2019 ARTERIAL BLOOD GAS, POC CARO TERESA Start: 07-03-2019 Calcium ionized CARO TERESA Start: 07-03-2019 Potassium serum plasma/whole blood CARO TERESA Start: 07-03-2019 Sodium serum plasma or whole blood CARO TERESA Start: 07-03-2019 PREPARE RBC (CROSSMATCH) CARO Parker Start: 07-03-2019 TRANSFUSE RED BLOOD CELLS Caro schroeder Work Phone: Start: 07-03-2019 End: 07-03-2019 ARTERIAL BLOOD GAS, POC Caro Teresa Work Phone: Start: 07-03-2019 End: 07-03-2019 Blood count hemoglobin Caro Teresa Work Phone: Start: 07-03-2019 End: 07-03-2019 CALCIUM, IONIC (POC) Caro Teresa Work Phone: Start: 07-03-2019 End: 07-03-2019 Gluc bld gluc mntr dev cleared fda spec home use Caro Wrayno Work Phone: Start: 07-03-2019 End: 07-03-2019 Potassium [Moles/Vol] Caro Wrayno Work Phone: Start: 07-03-2019 End: 07-03-2019 Sodium [Moles/Vol] Caro Wrayno Work Phone: Start: 07-03-2019 TRANSFUSE RED BLOOD CELLS CARO WRAY NO Start: 07-03-2019 ARTERIAL BLOOD GAS, POC CARO DIBTDNO Start: 07-03-2019 Calcium ionized CARO LOCKEARDINO Start: 07-03-2019 Potassium serum plasma/whole blood CARO LOCKEARDINO Start: 07-03-2019 Sodium serum plasma or whole blood CARO LOCKEARDINO Start: 07-03-2019 End: 07-03-2019 ARTERIAL BLOOD GAS, POC Caro Corneliatdno Work Phone: Start: 07-03-2019 End: 07-03-2019 Blood count hemoglobin Caro Locketdno Work Phone: Start: 07-03-2019 End: 07-03-2019 CALCIUM, IONIC (POC) Caro Lockeardino Work Phone: Start: 07-03-2019 End: 07-03-2019 Gluc bld gluc mntr dev cleared fda spec home use Caro Locketdno Work Phone: Start: 07-03-2019 End: 07-03-2019 Potassium [Moles/Vol] Caro Corneliaardino Work Phone: Start: 07-03-2019 End: 07-03-2019 Sodium [Moles/Vol] Caro Corneliaardino Work Phone: Start: 07-03-2019 MIXED VENOUS GAS, POINT OF CARE CARO GILL Start: 07-03-2019 Culture bacterial quanttative colony count urine CARO TERESA Start: 07-03-2019 POC KAOLIN TEG CARO TERESA Start: 07-03-2019 POC KAOLIN TEG WITH HEPARIN CARO GOMEZ Start: 07-03-2019 ARTERIAL BLOOD GAS, POC CARO CORNELIATDNO Start: 07-03-2019 Calcium ionized CARO LOCKEARDINO Start: 07-03-2019 Potassium serum plasma/whole blood CARO LOCKEARDINO Start: 07-03-2019 Sodium serum plasma or whole blood CARO LOCKEARDINO Start: 07-03-2019 End: 07-03-2019 TRANSFUSE RED BLOOD CELLS Caro Wray no Work Phone: Start: 07-03-2019 Transfusion blood/blood components CARO TERESA Start: 07-03-2019 End: 07-03-2019 ARTERIAL BLOOD GAS, POC Caro Wrayno Work Phone: Start: 07-03-2019 End: 07-03-2019 Blood count hemoglobin Caro Wrayno Work Phone: Start: 07-03-2019 End: 07-03-2019 CALCIUM, IONIC (POC) Caro Lockeardino Work Phone: Start: 07-03-2019 End: 07-03-2019 Gluc bld gluc mntr dev cleared fda spec home use Caro Wrayno Work Phone: Start: 07-03-2019 End: 07-03-2019 Potassium [Moles/Vol] Caro Lockeardino Work Phone: Start: 07-03-2019 Sodium [Moles/Vol] Caro Lockeardino Work Phone: Start: 07-03-2019 MIXED VENOUS GAS, POINT OF CARE Caro Mayank gill Work Phone: Start: 07-03-2019 Culture bacterial quanttative colony count urine Caro Teresa Work Phone: Start: 07-03-2019 POC KAOLIN TEG Caro Wrayno Work Phone: Start: 07-03-2019 POC KAOLIN TEG WITH HEPARIN Caro farleyo Work Phone: Start: 07-03-2019 ARTERIAL BLOOD GAS, POC Caro Wrayno Work Phone: Start: 07-03-2019 End: 07-03-2019 Blood count hemoglobin Caro Wrayno Work Phone: Start: 07-03-2019 CALCIUM, IONIC (POC) Caro Lockeardino Work Phone: Start: 07-03-2019 End: 07-03-2019 Gluc bld gluc mntr dev cleared fda spec home use Caro Lockeardino Work Phone: Start: 07-03-2019 Potassium [Moles/Vol] Caro Lockeardino Work Phone: Start: 07-03-2019 Sodium [Moles/Vol] Caro Dibardino Work Phone: Start: 07-03-2019 Level iv surg pathology gross&microscopic exam CARO TERESA Start: 07-03-2019 PATIENT STATUS (DIRECT) CARO TERESA Start: 07-03-2019 End: 07-03-2019 Coronary artery byp w/vein & artery graft 2 vein Caro Teresa Work Phone: Start: 07-03-2019 Level iv surg pathology gross&microscopic exam Caro Teresa Work Phone: Start: 07-03-2019 PREPARE RBC (CROSSMATCH) CARO LOCKECAITLIN Parker Start: 07-03-2019 Echo transesophag r-t 2d w/prb img acquisj i&r CARO WRAYMOLLY Start: 07-03-2019 VITAL SIGNS CARO TERESA Start: 06-29-2019 Ct thorax w/o contrast material Vasiliy Garcia Work Phone: Start: 06-29-2019 Duplex scan extracranial art compl bi study Vasiliy Garcia Work Phone: Start: 06-29-2019 ABG DRAW CARO LOCKEMANUEL Start: 06-28-2019 ABG DRAW CARO LOCKETDMOLLY Start: 06-27-2019 Dup-scan xtr veins complete bilateral study CARO LOCKEMANUEL Start: 06-27-2019 Echo tthrc r-t 2d w/wom-mode compl spec&colr d CARO WRAYMOLLY Start: 06-27-2019 Dup-scan xtr veins unilateral/limited study Vasiliy Garcia Work Phone: Start: 06-27-2019 ABG DRAW CARO LOCKEMANUEL Start: 06-26-2019 ABG DRAW CARO LOCKETDMOLLY Start: 06-25-2019 Antibody screen Stvz 1 Start: 06-25-2019 Culture bacterial quanttative colony count urine CARO LOCKEMANUEL Start: 06-25-2019 Urinalysis microscopic only CARO LOCKEJAVAD GOMEZ Start: 06-25-2019 Urnls dip stick/tablet rgnt auto w/o microscopy CARO LOCKEMANUEL Start: 06-25-2019 Radiologic exam chest 2 views [...] Start: 06-25-2019 Blood typing serologic abo Caro Jackson madi Work Phone: Start: 06-25-2019 Comprehensive metabolic panel [...] Start: 06-06-2019 Glucose [Mass/volume] in Blood Tasia Chen sabina Meredith Work Phone: Start: 05-10-2019 Radiologic exam chest [...] Agarwal Jr, MD Start: 11-04-2014 End: 11-04-2014 [facility] medical xm&eval comprhnsv estab pt 1/> Dm Agarwal Jr, MD Start: 10-29-2013 End: 10-29-2013 [facility] medical xm&eval comprhnsv estab pt 1/> Dm Agarwal Jr, MD Start: 10-20-2012 End: 10-20-2012 [facility] medical xm&eval comprhnsv estab pt 1/> Dm Agarwal Jr, MD Start: 10-20-2012 End: 10-20-2012 Vitamins Dm Agarwal Jr, MD Start: 04-26-2011 End: 04-26-2011 [facility] medical xm&eval tessahnsv estab pt 1/> Dm Agarwal Jr, MD Plan of Treatment Date Care Activity Detail Author Start: 01-07-2031 Screening for malign ant neoplasm of colon [facility] Start: 11-05-2025 End: 11-05-2025 Patient encounter procedure [facility] Start: 07-06-2025 Glaucoma screening Diabetes: R etinopathy Screening [facility] Start: 05-30-2025 End: 05-30-2025 Patient encounter procedure 05/30/2025 11:00 AM EST Office Visit [facility] [employer] [address] [place] [id number] Asnhul Irizarry MD [address] [place] [address] 6 month f/u lab/ekg [facility] [employer] Comment on above: 6 month f/u lab/ekg Start: 04-10-2025 Urine screening for protein Diabetes: Urine Protein Screening [facility] Start: 03-05-2025 End: 03-05-2025 Patient encounter procedure 03/05/2025 2:30 PM EDT Office Visit [facility] [address] [facility] [address] [place] [address] Grayson Hernandez MD [address] [place] [address] [facility] Start: 02-28-2025 End: 02-28-2025 Patient encounter procedure 02/28/2025 2:30 PM EDT Office Visit [facility] [address] [place] [address] Grayson Hernandez MD [address] [place] [address] [facility] Start: 02-19-2025 End: 02-19-2025 Patient encounter procedure 02/19/2025 2:00 PM EDT Office Visit [facility] [address] [facility] [address] [place] [address] Grayson Hernandez MD [address] [facility] [address] [place] [address] (Fax) [facility] Start: 01-20-2025 End: 08-20-2025 Comprehensive metabolic 2000 panel - Serum or Plasma Comprehensive metabolic panel Lab Routine Primary hypertension ([facility]) Hypokalemia Type 2 diabetes mellitus with stage 4 chronic kidney disease, without long-term current use of insulin ([facility]) Expected: 01/20/2025, Expires: 08/20/2025 [facility] Work Phone: Comment on above: Expected: 01/20/2025 , Expires: 08/20/2025 Start: 01-20-2025 End: 08-20-2025 Hemoglobin A1c/Hemoglobin.total in Blood Hemoglobin A1c Lab Routine Type 2 diabetes mellitus with hyperglycemia, without long-term current use of insulin ([facility]) Expected: 01/20/2025, Expires: 08/20/2025 [facility] Comment on above: Expected: 01/20/2025 , Expires: 08/20/2025 Start: 01-20-2025 End: 08-20-2025 Lipid 1996 panel - Serum or Plasma Lipid panel Lab Routine Mixed hyperlipidemia ([facility]) Expected: 01/20/2025, Expires: 08/20/2025 [facility] Comment on above: Expected: 01/20/2025 , Expires: 08/20/2025 Start: 12-21-2024 Influenza vaccination Flu vacc ine (Season Ended) [facility] Start: 11-15-2024 End: 11-15-2024 Patient encounter procedure 11/15/2024 1:30 PM EDT Office Visit [facility] [employer] [address] [place] [id number] Anshul Irizarry MD [address] [place] [address] 6 mnth f/u echo/lab/ekg prior [facility] [employer] Comment on above: 6 mnth f/u echo/lab/ ekg prior Start: 11-05-2024 End: 11-05-2024 Patient encounter procedure [facility] Comment on above: Arrived Start: 10-05-2024 End: 10-05-2024 ambulatory 10/05/2024 2:00 PM EDT Treatment [facility] [address] [place] [address] Neno Odonnell, CREATIVE SERVICES COORDINATOR [facility] Start: 10-02-2024 End: 10-02-2024 ambulatory 10/02/2024 2:00 PM EDT Treatment [facility] [address] [place] [address] Neno Odonnell CREATIVE SERVICES COORDINATOR [facility] Start: 09-28-2024 End: 09-28-2024 ambulatory 09/28/2024 1:00 PM EDT Treatment [facility] [address] [place] [address] Neno Odonnell CREATIVE SERVICES COORDINATOR [facility] Start: 09-05-2024 End: 09-05-2024 Patient encounter procedure 09/05/2024 2:30 PM EDT Office Visit [facility] [address] [place] [address] Grayson Hernandez MD [address] [place] [address] (Fax) [facility] Start: 08-20-2024 End: 08-20-2024 Patient encounter procedure 08/20/2024 3:00 PM EDT Office Visit [facility] [address] [place] [address] Grayson Hernandez MD [address] [place] [address] (Fax) Primary hypertension (CMS/HCC); Mixed hyperlipidemia (CMS/HCC) [...] [facility] [address] [place] [address] Grayson Hernandez MD [address] [place] [address] Arrived [facility] FM 100 Comment on above: Arrived Start: 07-07-2024 Glaucoma screening Diabetes: R etinopathy Screening [facility] Start: 06-27-2024 Screening for malign ant neoplasm of breast Mammogram [facility] Comment on above: Postponed from 05/26 (Other Medical Reasons) Start: 06-23-2024 Glaucoma screening Diabetes: R etinopathy Screening [facility] Start: 05-24-2024 End: 05-24-2024 Patient encounter procedure [facility] 100 Comment on above: Arrived Start: 05-23-2024 Annual Wellness Visi t (Medicare Advantage) Annual Wellness Visit (Medicare Advantage) [facility] Start: 05-18-2024 Pneumococcal Vaccine : 65+ Years (2 - PPSV23 or PCV20) Pneumococcal Vaccine: 65+ Years (2 - PPSV23 or PCV20) [facility] Comment on above: Postponed from 02/14 (Other Patient Reasons) Start: 05-18-2024 Pneumococcal Vaccine : 65+ Years (2 of 2 - PPSV23 or PCV20) Pneumococcal Vaccine: 65+ Years (2 of 2 - PPSV23 or PCV20) [facility] Comment on above: Postponed from 02/14 (Other Patient Reasons) Start: 05-10-2024 Lipid screen Lipid screen Claudia blackburn Work Phone: Start: 04-10-2024 Urine culture [facility] Start: 04-10-2024 Bacteria identified in Urine by Culture Urine Culture [facility] Start: 04-10-2024 [facility] Start: 02-24-2024 Urine screening for protein Diabetes: Urine Protein Screening [facility] Start: 02-21-2024 End: 02-21-2024 Patient encounter procedure 02/21/2024 3:30 PM EDT Office Visit [facility] [address] [phone] Grayson Hernandez MD [address] [place] [address] (Fax) [facility] Start: 02-02-2024 End: 02-02-2024 Patient encounter procedure 02/02/2024 2:00 PM EDT Office Visit [facility] [address] [address] Grayson Hernandez MD [address] [place] [address] (Fax) [facility] 100 Start: 01-22-2024 COVID-19 Vaccine ( season) COVID-19 Vaccine ( season) [facility] Start: 01-07-2024 Adult BMI Screening Adult BMI Screen ing [facility] [facility] Start: 01-07-2024 Fall Risk Screening [facility] Start: 01-07-2024 Tobacco Screening Tobacco [facility]ening [facility] Start: 12-22-2023 Influenza vaccination Flu vacc ine (Season Ended) [facility] Start: 12-09-2023 Respiratory Syncytia l Virus (RSV) or age 60 yrs+ (1 - 1-dose 75+ series) Respiratory Syncytial Virus (RSV) or age 60 yrs+ (1 - 1-dose 75+ series) [facility] Start: 12-04-2023 Lipid panel Lipids [facility] Start: 11-08-2023 End: 11-08-2023 Patient encounter procedure [facility] [employer] Comment on above: 6 month f/u with ech o (to be done in [place]) and routine testing Dr Irizarry said we c ould move appt out since stress was good, however Start: 11-03-2023 End: 11-03-2023 Patient encounter procedure 11/03/2023 2:35 PM EDT Office Visit [facility] [address] [facility] [address] [place] [phone] Jorge Luis Gasca MD [address] [facility] [address] [place] [address] [facility] Start: 09-19-2023 End: 09-19-2023 Patient encounter procedure 09/19/2023 10:30 AM EDT Office Visit [facility] [employer] [address] [place] [address] Anshul Irizarry MD [address] [place] [address] 4 week follow up LOVE [facility] [employer] Comment on above: 4 week follow up LOVE Start: 09-14-2023 Medicare Annual Well ness (AWV) Medicare Annual Wellness (AWV) [facility] Start: 08-19-2023 Shingles vaccine (2 of 2) Alex gles vaccine (2 of 2) [facility] Start: 08-08-2023 End: 08-08-2023 Patient encounter procedure 08/08/2023 2:30 PM EDT Office Visit [facility] [address] [place] [address] Grayson Hernandez MD [address] [place] [address] (Fax) [facility] Start: 07-07-2023 Smoking cessation education Tobacco cessation counseling [facility] Start: 07-05-2023 End: 07-05-2023 Patient encounter procedure 07/05/2023 3:00 PM EST [facility] [address] [place] [phone] Walker Monroy MD [address] [place] [address], [address], [address], [address] [place] [address] [facility] Start: 06-03-2023 Hemoglobin A1c measurement Diabetes: Hemoglobin A1C [facility] Start: 05-26-2023 Screening for malign ant neoplasm of breast Breast cancer screen [facility] Start: 05-23-2023 Annual Wellness Visi t (Medicare Advantage) Annual Wellness Visit (Medicare Advantage) [facility] Start: 01-21-2023 COVID-19 Vaccine ( season) COVID-19 Vaccine () [facility] Start: 01-21-2023 COVID-19 Vaccine ( season) COVID-19 Vaccine ( season) [facility] Start: 01-21-2023 Influenza vaccination Influenza Vacc ine [facility] Start: 01-13-2023 Depression Screening Depression Scre ening [facility] Start: 08-03-2022 Screening for malign ant neoplasm of colon [facility] Start: 06-23-2022 Smoking cessation education Tobacco cessation counseling [facility] Start: 10-21-2021 End: 10-21-2021 Patient encounter procedure 10/21/2021 Office Visit Cardiology Anshul Irizarry MD [address] [place] [id number] [facility] [employer] Start: 01-30-2021 COVID-19 Vaccine (3 - Booster for Moderna series) COVID-19 Vaccine (3 - Booster for Moderna series) [facility] Start: 01-30-2021 Creatinine measurement Creatinine mo nitoring [facility] Start: 01-30-2021 HbA1c (Bld) [Mass fraction] A1C test (Diabetic or Prediabetic) [place] Start: 01-30-2021 Hemoglobin A1c measurement A1C test (Diabetic or Prediabetic) [facility] Start: 01-30-2021 Lipid panel Lipid screen [facility] Start: 01-30-2021 Potassium monitoring Potassium monit [facility] Start: 10-02-2020 Creatinine measurement Creatinine mo nitoring [place], [place] Start: 10-02-2020 Lipid panel Lipid screen [place], [place] Start: 10-02-2020 Potassium monitoring Potassium monit [place], [place] Start: 08-03-2020 Screening for malign ant neoplasm of colon FIT/FOBT: Average risk [facility] Start: 07-23-2020 Statin Therapy Statin Therapy [place] Start: 07-23-2020 [place] Start: 07-15-2020 [place] Start: 07-01-2020 End: 07-01-2020 Office Visit 07/01/2020 Office Visit Cardiology Anshul Irizarry MD [address] [place] [id number] [facility] [employer] Start: 06-25-2020 A1C test (Diabetic o r Prediabetic) A1C test (Diabetic or Prediabetic) [facility] [employer] Phone: Start: 06-25-2020 Creatinine monitoring Creatinine mon [facility] [employer] Phone: Start: 06-25-2020 HbA1c (Bld) [Mass fraction] A1C test (Diabetic or Prediabetic) [place] Start: 06-25-2020 Potassium monitoring Potassium monit [facility] [employer] Phone: Start: 06-25-2020 [place] Start: 05-10-2020 A1C test (Diabetic o r Prediabetic) A1C test (Diabetic or Prediabetic) [facility] [employer] Phone: Start: 05-10-2020 Creatinine monitoring Creatinine mon [facility] [employer] Phone: Start: 05-10-2020 Potassium monitoring Potassium monit [facility] Work Phone: Start: 05-10-2020 [facility] Start: 04-23-2020 Patient Education Health Infor mation for You: [employer]~ [facility] Work Phone: Start: 01-22-2020 [facility] Start: 01-08-2020 End: 01-08-2020 Office Visit 01/08/2020 Office Visit Cardiology Anshul Irizarry MD [address] [place] [address] [facility] [employer] Start: 08-22-2019 End: 08-22-2019 [facility] Special[facility] Start: 07-25-2019 End: 08-24-2019 [facility] Start: 07-03-2019 End: 07-03-2019 Hospital Encounter [facility] Comment on above: CABG CORONARY ARTERY BYPASS X2; AORTIC VALVE REPLACEMENT, ON PUMP, SWAN SHAWN, LOVE Start: 06-29-2019 End: 06-29-2019 Appointment [facility] Start: 06-25-2019 Annual Wellness Visi t (AWV) Annual Wellness Visit (AWV) [facility] Start: 06-25-2019 [facility] Start: 05-30-2019 End: 05-30-2019 Patient encounter procedure 05/30/2019 Office Visit Cardiology Anshul Irizarry MD [address] [place] [address] [facility] [employer] Start: 05-10-2019 Annual Wellness Visi t (AWV) Annual Wellness Visit (AWV) [facility] Work Phone: Start: 04-18-2019 Patient Education Health Infor mation for You: [employer]~ [facility] Work Phone: Start: 01-21-2019 Influenza vaccination Flu vaccine (# 1) [facility] [employer] Work Phone: Start: 01-21-2019 [facility] Start: 12-20-2017 Pneumococcal 50+ yea rs Vaccine (2 of 2 - PPSV23) Pneumococcal 50+ years Vaccine (2 of 2 - PPSV23) [facility] Start: 12-20-2017 Pneumococcal 65+ yea rs Vaccine (2 - PPSV23 or PCV20) Pneumococcal 65+ years Vaccine (2 - PPSV23 or PCV20) [facility] [employer] Start: 12-20-2017 Pneumococcal 65+ yea rs Vaccine (2 of 2 - PPSV23 or PCV20) Pneumococcal 65+ years Vaccine (2 of 2 - PPSV23 or PCV20) [facility] Start: 02-14-2017 Pneumococcal Vaccine : 65+ Years (2 of 2 - PPSV23 or PCV20) Pneumococcal Vaccine: 65+ Years (2 of 2 - PPSV23 or PCV20) [facility] Start: 2013 DEXA (modify frequen cy per FRAX score) DEXA (modify frequency per FRAX score) [facility] Phone: Start: 2013 Pneumococcal 65+ yea rs Vaccine (1 of 1 - PPSV23) Pneumococcal 65+ years Vaccine (1 of 1 - PPSV23) [facility] Phone: Start: 2013 Pneumococcal 65+ yea rs Vaccine (2 of 2 - PPSV23) Pneumococcal 65+ years Vaccine (2 of 2 - PPSV23) [facility] Phone: Start: 2013 [facility] [place] Start: 2008 Respiratory Syncytia l Virus (RSV) or age 60 yrs+ (1 - 1-dose 60+ series) Respiratory Syncytial Virus (RSV) or age 60 yrs+ (1 - 1-dose 60+ series) [facility] Start: 12-09-2003 Screening for osteoporosis DEXA (modify frequency per FRAX score) [facility] [employer] Start: 1998 Administration of varicella zoster vaccine Zoster (Shingles) Vaccine (1 of 2) [facility] Start: 1998 Breast cancer screen Breast cancer s creen [facility] Phone: Start: 1998 Colon cancer screen colonoscopy Colon cancer screen colonoscopy [facility] Phone: Start: 1998 Screening for malign ant neoplasm of breast Breast cancer screen [employer] Start: 1998 Screening for malign ant neoplasm of colon Colon cancer screen colonoscopy [place], [place] Start: 1998 Shingles Vaccine (1 of 2) Alex gles Vaccine (1 of 2) [facility] Start: 1998 [place], [place] Start: 1993 Screening for malign ant neoplasm of colon [facility] Start: 1988 Lipid screen Lipid screen [facility] [employer] Phone: Start: 12-09-1967 DTaP,Tdap and Td Vac cines (1 - Tdap) DTaP,Tdap and Td Vaccines (1 - Tdap) [employer] Start: 12-09-1967 DTaP/Tdap/Td vaccine (1 - Tdap) DTaP/Tdap/Td vaccine (1 - Tdap) [employer] Start: 12-09-1967 Hepatitis B vaccine (1 of 3 - Risk 3-dose series) Hepatitis B vaccine (1 of 3 - Risk 3-dose series) [employer] Phone: Start: 12-09-1967 [facility] [place] Start: 1966 Adult BMI Follow Up Plan Adult BMI F ollow Up Plan [facility] Start: 1960 Depression Screen Depression Screen [facility] Start: 12-09-1959 DTaP/Tdap/Td vaccine (1 - Tdap) DTaP/Tdap/Td vaccine (1 - Tdap) [employer] Phone: Start: 12-09-1959 [facility] [place] Start: 1958 A1C test (Diabetic o r Prediabetic) A1C test (Diabetic or Prediabetic) [employer] Phone: Start: 1948 Creatinine monitoring Creatinine mon itoring [employer] Phone: Start: 1948 Hepatitis C screen Hepatitis C scree n [employer] Phone: Start: 07-19-1949 Medicare Annual Well ness Visit Medicare Annual Wellness Visit [facility] [employer] Start: 1948 Potassium monitoring Potassium monit oring [employer] Phone: Start: 1948 Screening for malign ant neoplasm of colon [facility] ABG draw ABG draw Respira tory Care Routine Daily until discontinued starting 06/25/2019 [employer] Phone: Comment on above: Daily until disconti nued starting 06/25/2019 Albumin [Mass/volume ] in Serum or Plasma [facility] Albumin/Globulin ratio [facility] Basic metabolic 2000 panel [facility] [place] [employer] [place] End: 07-03-2019 BLOOD BANK REQUEST [facility] [place] End: 07-04-2019 BLOOD BANK REQUEST [facility] [place] Cardiac catheterization Cardiac Catheterization Cardiac Cath Routine 06/06/2019 10:52 AM EST [facility] End: 09-07-2021 Cardiac event monitor Cardiac event monitor Cardiac Services Routine Palpitations 1 Occurrences starting 09/07/2021 until 09/07/2021 [employer] Phone: Comment on above: 1 Occurrences starti ng 09/07/2021 until 09/07/2021 CBC NeuroDerm [employer] [place] Continuous pulse oximetry Pulse oximetry, continuous Respiratory Care Routine Every 4hr until discontinued starting 09/01/2023 [employer] Comment on above: Every 4hr until disc ontinued starting 09/01/2023 EKG 12 Lead [employer] Phone: Electrophoresis: [id number] [facility] Electrophoresis: [id number] [facility] Electrophoresis: beta-globulin [facility] Electrophoresis: candida ma globulin [facility] End: 09-01-2023 End Tidal CO2 Continuous End Tidal CO2 Continuous Respiratory Care Routine Continuous until discontinued starting 09/01/2023 [employer] Comment on above: Continuous until dis continued starting 09/01/2023 Globulin [Mass/volum e] in Serum [facility] Hemoglobin and Hematocrit, Blood, Post Transfusion [facility] [employer] [place] IgA [Mass/volume] in Serum or Plasma [facility] IgG [Mass/volume] in Serum or Plasma [facility] IgM [Mass/volume] in Serum or Plasma [facility] Immunofixation for Urine [facility] Initiate Oxygen Ther apy Protocol [place], [place] light chains.f ree [Mass/volume] in Serum [facility] [place] light chains.free/Lambda light chains.free [Mass Ratio] in Serum [facility] Lambda light chains. free [Mass/volume] in Serum or Plasma [facility] Magnesium [Mass/Vol] [place], [place] Oxygen therapy [[facility]ini [facility] Data Set] Initiate Oxygen Therapy Protocol Respiratory Care Routine As Needed until discontinued starting 09/01/2023 [facility] Comment on above: As Needed until disc ontinued starting 09/01/2023 End: 08-17-2023 Percutaneous coronary intervention [facility] Comment on above: One Time for 1 Occur rences starting 08/17/2023 until 08/17/2023 Phosphate [Mass/Vol] [place], [place] Platelets (Bld) [#/Vol] [place], [place] POCT Glucose [place], [place] End: 07-16-2019 PREPARE RBC (CROSSMATCH), 1 Units [place], [place] End: 07-03-2019 PREPARE RBC (CROSSMATCH), 2 Units [place] End: 07-12-2019 PREVIOUS SPECIMEN [place] PREVIOUS SPECIMEN [place], [place] Protein [Mass/volume ] in Serum or Plasma [facility] [employer] [place], [place] Renal function 2000 panel - Serum or Plasma [facility] Serum immunofixation [facility] End: 07-20-2019 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 11-21-2023 Shingrix 50 MCG/0.5M L vaccine Grayson Hernandez MD Work Phone: [facility] 06-24-2023 zoster vaccine recombinant Grayson Hernandez MD Work Phone: [facility] 03-19-2022 Moderna Bivalent Booster Vaccination Shannen Velazquez RN Work Phone: [facility] 08-11-2021 COVID-19, mRNA, LNP- S, PF, 100mcg/0.5mL Dose Alma Hankins RN [facility] 06-23-2021 influenza, high dose seasonal, preservative-free Alma Hankins RN [facility] 06-23-2021 influenza virus vaccine, unspecified formulation Alma Hankins RN [facility] 04-27-2021 COVID-19, mRNA, LNP- S, PF, 100mcg/0.5mL Dose Alma Hankins RN [facility] 08-30-2020 COVID-19 Vaccine Moderna - Documentation Purposes Only Martha Jerichobette Other [facility] 08-02-2020 COVID-19 Vaccine Moderna - Documentation Purposes Only Martha Jerichobette Other [facility] 03-01-2020 influenza, injectabl e, quadrivalent, preservative free Alma Hankins RN [facility] 02-28-2020 Seasonal, quadrivale nt, recombinant, injectable influenza vaccine, preservative free Alma Hankins RN [facility] 03-25-2018 influenza, high dose seasonal, preservative-free Alma Hankins RN [facility] 03-25-2018 influenza, injectabl e, quadrivalent, preservative free Alma Hankins RN [facility] 12-20-2016 pneumococcal conjuga te vaccine, 13 valent Alma Hankins RN [facility] 03-01-2016 influenza, injectabl e, quadrivalent, preservative free Alma Hankins RN [facility] 05-23-2015 influenza, seasonal, injectable Dm Agarwal Jr, MD [facility] Comment on above: Note: Invalid docume nted admin date was /. ; Source: Other Provider Payers Date Payer Category Payer Medicare [id number] 2024 Self-pay 2022 Medicare (Managed Care) 1.2. [id number] 2022 Unknown [id number] [id number]. [id number] 2020 Unknown [id number] 2019 Unknown [id number] 2019 Medicare MEDICARE MEDICAR E PART A & B [id number] 2019-Present [place] [id number]. [id number] 2019 Medicare [id number] 2019 Medicare MEDICARE PFFS ME DICARE HMO/PPO/PFFS MISC* [id number] 2019-Present [id number]. [id number] 2019 Medicare [id number] 2017 Medicare xxxxxxxxxxx [id number]. [id number] 2017 Unknown [id number] 2014 Medicare xxxxxxxxx [id number]. [id number] 1959 Medicare [id number] 1959 Self-pay [id number] 1948 Unknown [id number] 2.16.840.1.332769.3.579.2. 903 1948 Unknown [id number] 2.16.840.1.414776.3.579.2. 903 1948 Unknown [id number] 2.16.840.1.852780.3.579.2. 175 1948 Unknown [id number] 2.16.840.1.380668.3.579.2. 175 1948 Unknown [id number] 2.16.840.1.897318.3.579.2. 175 1948 Unknown [id number] 2.16.840.1.366286.3.579.2. 175 1948 Unknown [id number] 2.16.840.1.642847.3.579.2. 175 1948 Unknown [id number] 2.16.840.1.434684.3.579.2. 732 1948 Unknown [id number] 2.16.840.1.454432.3.579.2. 593 1948 Unknown [id number] 2.16.840.1.877036.3.579.2. 593 1948 Unknown [id number] 2.16.840.1.178953.3.579.2. 593 1948 Unknown [id number] 2.16.840.1.336843.3.579.2. 593 1948 Unknown [id number] 2.16.840.1.134147.3.579.2. 593 1948 Unknown [id number] 2.16.840.1.845282.3.579.2. 593 1948 Unknown [id number] 2.16.840.1.505969.3.579.2. 593 1948 Unknown [id number] 2.16.840.1.838263.3.579.2. 173 1948 Unknown [id number] 2.16.840.1.668220.3.579.2. 173 1948 Unknown [id number] 2.16.840.1.506808.3.579.2. 1347 1948 Unknown [id number] 2.16.840.1.956628.3.579.2. 1259 1948 Unknown [id number] 2.16.840.1.850748.3.579.2. 1259 1948 Unknown [id number] 2.16.840.1.546030.3.579.2. 125 1948 Unknown [id number] 2.16.840.1.580727.3.579.2. 125 1948 Unknown [id number] 2.16.840.1.901918.3.579.2. 1258 1948 Unknown [id number] 2.16.840.1.213767.3.579.2. 1258 1948 Unknown [id number] 2.16840.1.147683.3.579.2. 125 1948 Unknown [id number] 2.16840.1.133187.3.579.2. 125 1948 Unknown [id number] 2.16.840.1.105988.3.579.2. 1258 1948 Unknown [id number] 2.16.840.1.445157.3.579.2. 1258 1948 Unknown [id number] 2.16840.1.110372.3.579.2. 1259 1948 Unknown [id number] 2.16840.1.960038.3.579.2. 174 1948 Unknown [id number] 2.16840.1.888812.3.579.2. 174 Unknown [id number] 2.16840.1.255885.3.579.2. 531 Unknown [id number] 2.16840.1.144186.3.579.2. 531 Social History Date Type Detail Facility Start: 06-06-2019 End: 01-25-2023 Tobacco smoking status NHIS Never smoker [facility] Start: 06-06-2019 End: 01-06-2023 Alcohol intake Ex-drinker (finding) [facility] Start: 1950 Sex Assigned At Not on file M [employer] Phone: Start: 06-25-2019 End: 09-04-2023 Alcohol intake Lifetime non-drinker (finding) [employer] Phone: Start: 05-10-2019 History SDOH Alcohol Frequency 1 [employer] Phone: Start: 02-25-2020 End: 01-25-2023 Tobacco use and exposure Never used [employer] [place] Start: 02-28-2023 End: 09-05-2023 Sex Assigned At [employer] Other Start: 06-07-2023 End: 11-05-2024 Alcohol intake Current drinker of alcohol (finding) [facility] Start: 06-07-2023 End: 09-05-2023 Alcohol intake [facility] Do you belong to any clubs or organizations such as confucianist groups, unions, fraternal or athletic groups, or [...] End: 04-12-2024 Sex Patient sex unknown (finding) [facility] Start: 1950 Sex Assigned At Female F [facility] Start: 07-06-2024 Alcohol intake (observable entity) Alcohol Use Details [facility] Start: 04-17-2019 End: 10-16-2024 Sex Female (finding) [facility] NEGATED: Highlighted rowStart: 07-06-2024 Tobacco smoking status NHIS Unknown if ever smoked [facility] NEGATED: Highlighted rowStart: 07-06-2024 History of tobacco use Current non-smoker [facility] Medical Equipment Procedure Code Equipment Code Equipment Origin al Text Equipment Identifier Dates Closure Starclos e Se - [id number] , [id number] FDA Start: 06-06-2019 [id number] Start: [...] USE 1 TO CHECK GLUCOSE ONCE DAILY [id number] Start: 12-06-2022 1 each by Other route if needed. [id number] Start: 08-30-2022 1 each by Other route Daily [id number] Start: 09-01-2023 End: 10-05-2024 1 Lancet Daily [id number] Start: 11-30-2023 End: 01-03-2025 1 each by Other route Daily [id number] Start: 11-12-2024 End: 12-17-2025 Goals Date Patient Goal Desired Activity /State Personal health goal Comment on above: Formatting of this n ote might be different from the original. Evaluation of progress towards goal: patient plans for a safe discharge home with self care and support from and son. Clinical Notes 06-23-2019 to 01-07-2025 Shannen Velazquez RN - 01/07/2025 4:21 PM Deangelo Hernandez MD - 01/07/2025 4:21 PM Mejia Gasca MD - 11/05/2024 11:35 AM EDTTelephone Encounter - Nguyen Flores - 10/01/2024 12:59 PM EDT Note Date & Type Note Facility 01-07-2025 History of Presen t illness Narrative Returned call to [facility] Discussed alert button with SW. Discussed that they have an Medicare advantage plan. Several advantage plans now cover the cost of medical alert devices/systems. But the pt has to get the one their insurance company offers them, it might be free/covered. Howard states he will call his insurance plan. States he needs 2 rx's. Duloxetine and Furosemide, would like to get a 90 day supply instead of a 30 day supply. New dose for Alprazolam just started on 01/02/25. No changes noted yet. Prescription sent documented in this encounter [facility] 11-05-2024 History of Presen t illness Narrative Skin Check Location: Patient requests a skin examination of the face and scalp only, waist up and/or full body skin exam was offered, but patient declined Dermatologic history: history of Basal Cell Carcinoma Last visit: 1 year ago Established patient All pertinent medical history, medications, and allergies were reviewed. General Exam: alert, oriented to person, place, and time, normal affect, well appearing uses a cane Accompanied by spouse A complete skin exam was offered, pt declined. Areas not examined despite medical recommendation: from the neck down Scalp, Examined , exam limited by hair Head, Face Examined Neck Examined Chest Not examined Back Not examined Abdomen Not examined Right arm Not examined Left arm Not examined Hands Not examined Digits,nails: Not examined Lymphatics: Not examined Skin Exam 1. SEBORRHEIC KERATOSIS (2) Head - Anterior (Face), Neck - Anterior Stuck on verrucous, pedroza-brown papules Patient was counseled regarding these benign growths. Removal is normally not necessary, but they may be removed if they are symptomatic or for cosmetic reasons. 2. HISTORY OF BASAL CELL CARCINOMA Right Upper Cutaneous Lip No evidence of recurrence at BCC scar. The patient was counseled that scars from excisional sites of nonmelanoma skin cancers should be monitored closely for recurrence. The patient was instructed to contact the office for any new, changing, or symptomatic moles. The patient was also instructed to contact the office for any new lesions that develop within or around the previous surgery scar. 3. LENTIGINES Head - Anterior (Face) Scattered pedroza macules in sun-exposed areas. The patient was informed that lentigines are benign pigmented lesions that occur on sun-exposed and sun-damaged skin. No treatment is necessary. Recommended regular use of broad spectrum sunscreen SPF 30 or higher 4. OTHER SEBORRHEIC DERMATITIS Head - Anterior (Face) Dry, scaly skin Offered treatment, patient declined. Next Visit: 1 year documented in this encounter [facility] 10-01-2024 Telephone encount er Note Was contacted and was noted that they had received all the information needed and they were going to call Eleanor to schedule Home Health PT. [facility] 10-01-2024 Miscellaneous Notes Formattin g of this note might be different from the original. Was contacted and was noted that they had received all the information needed and they were going to call Eleanor to schedule Home Health PT. documented in this encounter [facility] 10-01-2024 Telephone encount er Note Sent referral for PT to [facility] for Nguyen Benedict HELENE. Then called Martha back noting she should be receiving a phone call to set-up Home Health, per PT recommendation. [facility] 10-01-2024 Miscellaneous Notes Formattin g of this note might be different from the original. Sent referral for PT to [facility] for Nguyen Benedict HELENE. Then called Martha back noting she should be receiving a phone call to set-up Home Health, per PT recommendation. He called re: at her Eval he said that an In-Home therapist was recommended and was calling to check on that and the status of whom it would be with. documented in this encounter [facility] 10-01-2024 Telephone encount er Note He called re: at her Eval he said that an In-Home therapist was recommended and was calling to check on that and the status of whom it would be with. [facility] 09-18-2024 History of Presen t illness Narrative Images from the original note were not included. Patient ID: Eleanor Mcclain is a 73 y.o. female who presents for: Copied from [facility] Note: Progress Notes Shannen Velazquez, RN (Registered Nurse) Family Medicine Howard LM for CM. Returned call to Howard. States that pt's blood sugars are elevating, Howard gave blood sugars for the last 2 weeks. States pt is going thorough periods where she is having difficulty walking. Has had multiple falls. He would like home health physical therapy. Discussed with Howard for home health physical therapy pt would need a face to face appt for insurance to pay for this. Discussed if he knew what home health service he would like. States that their insurance changed this year. Howard will call to see who is covered in the area. Howard will bring in blood sugar records to appt. Pt forgot the BP and BS readings. told him he would still see him for the face to face for physical therapy but he cannot address the other issues without those readings. Review of Systems Constitutional: Positive for activity change. Musculoskeletal: Positive for gait problem. Neurological: Positive for weakness. Objective She continues to be obviously delusional about what she is capable of doing. There are long pauses in thought when discussing basic questions. They are certainly some evident memory issues today. As far as physical exam she is in a wheelchair. I asked her to grasp my fingers and give me a squeeze and while I can feel some pressure on my fingers her grasp is rather weak. Interestingly she is right-handed and that almost seems slightly weaker than the left. There is very little strength to biceps curls or triceps extension. We had her simply lift her quad/knee up to my hand which was about 4 in above her resting state. She was able to get it there but even with my bad shoulder arm I was very easily able to push it right back down specifically asking her to resist this was about the same on both sides. Again using my bad arm I was able to resist any extension of her quadriceps that she was attempting. Because of the complaint of weight loss and not eating enough I did have my medical claims assistant come in the room and we put a flattened digital scale on the floor in front of her. It took both of us to help her out of the chair and giving her significant support to step onto and off of the scale. Visit Vitals Ht 5' 2.5 Wt 129 lb BMI 23.22 kg/m OB Status Hysterectomy Smoking Status Never BSA 1.61 m Allergies Allergen Reactions Latex Anaphylaxis Other [...] mouth in the evening 45 tablet 1 aspirin 81 MG EC tablet [...] mg) daily before supper 90 tablet 1 glucose blood (BYOM!Touch Ultra) test strip 1 each by Other route Daily 100 each 3 ipratropium (Atrovent) 0.06 % nasal spray Administer 2 sprays into each nostril in the morning and 2 sprays at noon and 2 sprays in the evening and 2 sprays before bedtime. 15 mL 0 Lancets (BYOM!Touch Delica Plus Cqixtz67M) misc 1 Lancet Daily 100 each 3 levothyroxine (Synthroid, Levoxyl) 88 MCG tablet Take 1 tablet (88 mcg) by mouth Daily 90 tablet 1 magnesium 200 MG tablet Take 200 mg by mouth in the evening. bzrwhfrh-jdyllpytn-tjbDJQISgszyu (Maxitrol) 0.1 % ophthalmic suspension 1 drop to affected eye 3 times daily for 7 days. 5 mL 0 No current facility-administered medications on file prior to visit. 1. Generalized weakness This is certainly worsened, truly to the point she should either be an assisted living or potentially ultimately a residential. I am not sure of her safety at home with time. The subject has been brought up before and he thinks he can still take care of her. I did discuss with them and they were agreeable instead of home physical therapy to coming to outpatient physical therapy as I think they will be able to get some better care there. - Ambulatory referral to Physical Therapy; Future 2. Frequent falls - Ambulatory referral to Physical Therapy; Future I certify that I had a wojd-jy-mknf encounter with this patient at [facility] office visit. Due to this medical condition the patient requires Physical therapy. I certify that based on my findings The physical therapy ordered is medically necessary for this patient. 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 3. History of falling 4. Polypharmacy Chronic problem The patient meets the [...] a moderate degree of evaluation and management. 5. Type 2 diabetes mellitus with hyperglycemia, without long-term current use of insulin ([facility]) I did discuss with him that without the blood sugar and blood pressure readings I really could have no impact in her health care today. Unfortunately his memory is slipping also as he was reminded earlier in the day they chronic care management to bring those with him and he still forgot. I think he is probably just overwhelmed with her care. 6. BMI 23-23.9 We did encourage that she not skip meals like she is doing. I discussed this directly with her and she acknowledge that in a whether she will remember we will be hold another subject. We did talk about either some protein shakes or even Melber instant breakfast with some ice cream to make a milk shake if she is interested. documented in this encounter [facility] 04-16-2025 History of Presen t illness Narrative Images from the original note were not included. Patient ID: Eleanor Mcclain is a 73 y.o. female who presents for: Flowsheet Row Patient Outreach from 08/29/2024 in [facility] with Shannen Velazquez RN Hospital Information ED, Hospital or Jail Facility Discharge? ED Patient has been contacted within 2 days of being seen in the ED Yes Diagnosis Fall from Standing, Laceration of scalp, chronic renal disease, stapled skin wound, Fracture of nasal bone Discharge Date 08/29/24 Discharged To: Home Setting Discharge Hospital [facility] Engagement Call Start Time 154 Admission Date 08/29/24 Medications Discharge medications reviewed and reconciled from hospital? Not applicable [no medication change] Is the patient having any side effects they believe may be caused by any medication additions or changes? No Does the patient have all medications ordered at discharge? Not applicable Nursing Interventions No intervention needed Is the patient taking all medications as directed (includes completed medication regime)? Yes Appointments Does the patient have a primary care provider? Yes [09/04/2023 at 3 pm] Self Management Does patient have home health? no Patient Teaching Does the patient have access to their discharge instructions? Yes [spoke with pt's ] Nursing Interventions Reviewed instructions with patient What is the patient's perception of their health status since discharge? Improving Is the patient/caregiver able to teach back the hierarchy of who to call/visit for symptoms/problems? PCP, Specialist, Home Health nurse, Urgent Care, ED, 911 Yes Wrap Up Wrap Up Additional Comments pt had fall at home and struck her head on a door frame sustaining a laceration. Left side of scalp, 2.5cm laceration to the left lateral posterior occipital aspect of her scalp. Test: labs, CT of facial bones, CT of cervical spine. 4 jennie were placed. Remove in 5-7 days. Pt also had fall on Tuesday, had right periorbital bruising and swelling over the bridge of her nose. states pt is okay, walked well today. Call End Time 1549 Objective The patient is pleasant and in no acute distress The patient has good eye contact and clear speech The wound is on the left parietal region of the scalp. [place] appear intact and wound is approximated and healing well. No evidence of fluctuance or hematoma. Right periorbital region demonstrates bruising. The conjunctiva proper are okay. However the patient has significant matting around the eyelashes and her notes she woke up with it this morning. There is also minor amount over on the left eye. Visit Vitals Ht 5' 2.5 Wt 141 lb BMI 25.38 kg/m OB Status Hysterectomy Smoking [...] mouth in the evening 45 tablet 1 aspirin 81 MG EC tablet [...] mg) daily before supper 90 tablet 1 glucose blood (BYOM!Touch Ultra) test strip 1 each by Other route Daily 100 each 3 ipratropium (Atrovent) 0.06 % nasal spray Administer 2 sprays into each nostril in the morning and 2 sprays at noon and 2 sprays in the evening and 2 sprays before bedtime. 15 mL 0 Lancets (BYOM!Touch Delica Plus Ejvhtq34X) misc 1 Lancet Daily 100 each 3 levothyroxine (Synthroid, Levoxyl) 88 MCG tablet Take 1 tablet (88 mcg) by mouth Daily 90 tablet 1 magnesium 200 MG tablet Take 200 mg by mouth in the evening. No current facility-administered medications on file prior to visit. 1. Laceration of scalp, subsequent encounter Four jennie removed without difficulty. Wound care advised. 2. Fall from standing, subsequent encounter We just briefly reminded her how important steps are within the home. 3. Closed fracture of nasal bone with routine healing, subsequent encounter No further treatment at this point she is not complaining of specific pain here now. 4. Encounter for examination following treatment at hospital This visit is prompted as a transition of care. The patient has been contacted by phone within 2 business days of discharge or at least 2 unsuccessful attempts were made to contact the patient within the 2 business days. Any available documents including; emergency room note, visit notes, consults, and discharge summary or continuity of care documents were reviewed. Any laboratory investigation or diagnostic imaging that was ordered by outside physicians and available was obtained and reviewed. The transition of care note is reviewed. a nlfc-hz-drso evaluation is done today. Medical decision making is complex in degree. 5. Encounter for staple removal As above 6. Polypharmacy Chronic problem The patient meets the [...] a moderate degree of evaluation and management. 7. Overweight (BMI 25.0-29.9) 8. Acute bacterial conjunctivitis of both eyes (Primary) Acute problem sure how or why she got it my guess is she has been putting fingers up in the eye area she says it is does itch since her fall. We talked about local care wiping inside outside. While in the office I did debride as much of the group as I could on my own with a wet gauze. 9. Acute conjunctivitis, unspecified acute conjunctivitis type, unspecified laterality In prescribing a new medication consideration of the following encompasses moderate decision making: the current prescriptions and supplements, the current allergies and medication intolerances, the current medical conditions, and potential drug interactions. Risks, benefits, and reason for starting their medication were discussed. The patient was given a chance to ask questions today and all questions were answered. The patient is to contact us if any other questions arise or if any problems occur with the adjustment in their medication. - pizeyrwj-nquovobqh-imbHVRVJwaret (Maxitrol) 0.1 % ophthalmic suspension; 1 drop to affected eye 3 times daily for 7 days. Dispense: 5 mL; Refill: 0 documented in this encounter [facility] 09-03-2024 Telephone encount er Note Trudi just do you know her Sept is HTN HLD DM and she needs a November ANX Sleep Memory OV. She has too many problems to be doing everything in one visit [facility] 09-03-2024 History of Presen t illness Narrative Spoke with Howard, pt needs rx for ARIPiprazole and [facility]pezil [facility] documented in this encounter [facility] 08-21-2024 Miscellaneous Notes Formattin g of this note might be different from the original. Trudi just do you know her Sept is HTN HLD DM and she needs a November ANX Sleep Memory OV. She has too many problems to be doing everything in one visit documented in this encounter [facility] 08-20-2024 History of Presen t illness Narrative [...] 30 tablet 0 Blood Glucose Monitoring Suppl (ReplySend TOUCH ULTRA 2) w/Device kit USE ONCE [...] before supper 90 tablet 0 glucose blood (BYOM!Touch Ultra) test strip 1 each by Other route Daily 100 each 3 ipratropium (Atrovent) 0.06 % nasal spray Administer 2 sprays into each nostril in the morning and 2 sprays at noon and 2 sprays in the evening and 2 sprays before bedtime. 15 mL 0 Lancets (BYOM!Touch Delica Plus Gfbrni45R) misc 1 Lancet Daily 100 each 3 [...] due to type 2 diabetes mellitus (HCC) ([facility]) Chronic problem that is stable for now. They have had multiple previous opportunities to be referred to Nephrology and I have chosen not to. - Comprehensive metabolic panel; Future - Comprehensive metabolic panel 7. Type 2 diabetes mellitus with hyperglycemia, without long-term current use of insulin ([facility]) Chronic problem continue current treatment. - Hemoglobin [...] tablet; Refill: 1 documented in this encounter 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 OU assessment Presence of intraocular lens Jun impression Presence of intraocular lens: Z9 6.1 [facility] Work Phone: [phone] History of Present illness Narrative* Encounter Date [...] and far vision. The symptom is infrequent. SUBMERSIBLE PILOT The 63 year old female presents for evaluation of SUBMERSIBLE PILOT blurry vision blurry vision Vitals Recent A1C [...] macular cyst in the left eye and SUBMERSIBLE PILOT in both eyes. [facility] Work Phone: [phone] Instructions* Date Instruction Additional Infor cristi 12mth [...] bi Return in [address] Decker for follow up exam and [...] degeneration, bilateral Return in [address] Decker for follow up exam and [...] compliance from a retinal standpoint with the PCP/Customer Response Representative. Appropriate follow up with primary eye career development engineer was recommended. Letter sent to PCP. Related [...] compliance from a retinal standpoint with the PCP/Customer Response Representative. Appropriate follow up with primary eye career development engineer was recommended. Related to Type 2 diab w mild nonprlf diabetic rtnop w/o macular edema - Return in [address] Decker for follow up exam with OCT.. [...] from a retinal standpoint and with the PCP/Customer Response Representative. Diabetic retinopathy book given to patient. Related to Background diabetic retinopathy - Discussed ocular a nd systemic benefits of blood sugar control as well as the importance of follow up compliance from a retinal standpoint and with the PCP/Customer Response Representative. Related to Diabetes with ophthalmic manifestations, type II o - Return in 1 year w [facility] Dr. Smith for follow up exam with [...] from a retinal standpoint and with the PCP/Customer Response Representative. Related to Diabetes with ophthalmic manifestations, type [...] from a retinal standpoint and with the PCP/Customer Response Representative. Diabetic retinopathy book given to patient. Related to Background diabetic retinopathy Diabetes with ophtha lmic manifestations, type II Condition: established. - Discussed ocular and systemic benefits of blood sugar control as well as the importance of follow up compliance from a retinal standpoint and with the PCP/Customer Response Representative. Related to Diabetes with ophthalmic manifestations, type II o - Return in 1 year w radha Smith for follow up exam and OCT. [...] from a retinal standpoint and with the PCP/Customer Response Representative. Related to Background diabetic retinopathy Retinal hemorrhage O U Condition: established, stable. - Will continue to monitor. 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 - Advised patient to keep all follow up appointments with Dr. Hardy. Related to Senile nuclear sclerosis [facility] Work Phone: [phone] Telephone encounter Note* Telephone Encounter - Grayson Hernandez MD - 06/04/2024 5:46 PM EST Called Howard and Katelyn. This is been going on for 3-4 weeks but is worsening. They did remove the rings in her watch. It isbilateral in nature. She has no more short of breath than usual. Reviewed her last chemistry profile from April. Will increase The furosemide by adding in 1/2 tablet before supper for a week and he will give me an update next week. [id number] Miscellaneous Notes* Telephone Encounter - Grayson Hernandez MD - 06/04/2024 5:46 PM EST Called Howard and Katelyn. This is been going on for 3-4 [...] it by Dr. Hernandez. [id number] Telephone encounter Note* Telephone Encounter - Maria Dolores Hare - 06/04/2024 9:49 AM EST Howard called, he stated that Katelyn's hands have been very swollen. Her left hand is worse than the right. He had her take her rings off and had a struggle getting them off. He is not sure what to do but wanted to run it by Dr. Hernandez. [facility] [id number] Telephone encounter Note* Telephone Encounter - Grayson [...] in his it is a controlled substance. [facility] [id number] Miscellaneous Notes* Telephone Encounter - Grayson Hernandez [...] is a controlled substance. [facility] [id number] History of Present illness Narrative* Grayson Hernandez [...] 90 tablet 1 Blood Glucose Monitoring Suppl (TrepUp ULTRA 2) w/Device kit USE ONCE DAILY [...] mouth Daily 90 tablet 1 glucose blood (Aparc Systemsuch Ultra) test strip 1 each by Other route Daily 100 each 3 ipratropium (Atrovent) 0.06 % nasal spray Administer 2 sprays into each nostril in the morning and 2 sprays before bedtime. 15 mL 0 Lancets (BYOM!Touch Delica Plus Iftbrq95U) misc 1 Lancet Daily 100 each 3 [...] 6. Overweight (BMI 25.0-29.9) [facility] [id number] Radiology Diagnostic study [facility] [place] [address] [place] [address] Ultrasound Report Signed Patient: Eleanor Mcclain MR#: [id number] : 1950 Acct:[id number] Age/Sex: 73 / F ADM Date: 4 Loc: Room: Type: [facility] Attending Dr: Morgan Womack MD Ordering Provider: [...] findings. Impression dictated by: Shant Pastrana Jr., D.O.04/10/2024 3:04 PM Dictation Location: [place] [address] Tech: Susan Casper Transcribed By: CATA 04/10/24 1504 Dictated By: Shant Pastrana Jr, DO 04/10/24 1503 Signed By: 04/10/24 1504 [facility]10-17-2024 Evaluation note* Diagnosis Onset Date Resolution Status [...] kidney disease acute March 08, 2024 1:21pm [facility] Work Phone: 1(272) 254-479010-01-2024 History of Present illness Narrative* Grayson Hernandez [...] identify problems with changes in short and chcf memory. Family and patient report problems with [...] mouth Daily 90 tablet 1 glucose blood (BYOM!Touch Ultra) test strip 1 each by Other route Daily 100 each 3 ipratropium (Atrovent) 0.06 % nasal spray Administer 2 sprays into each nostril in the morning and 2 sprays before bedtime. 15 mL 0 Lancets (BYOM!Touch Delica Plus Sknulr42M) misc 1 Lancet Daily 100 each 3 [...] of evaluation and management. [facility] [id number] History of Present illness Narrative* Shannen Velazquez RN - 02/10/2024 10:00 AM EDT <February 10, 2024, 10:01 - Shannen Velazquez RN> received call from pt's , Howard that he received a call from [facility], that they are unable to fill medication, pt was on auto refill but needs to see the doctor before it can be filled. [facility] needed. <February 10, 2024, 10:12 - Shannen Velazquez, RN> Called Howard, notified that CM spoke to [facility]. It was Atorvastatin that was needed. Soraida is due also. Will request rx's * Grayson Hernandez MD - 02/10/2024 10:00 AM EDT RX sent documented in this [facility]09-03-2024 Miscellaneous Notes* Telephone Encounter - Grayson Hernandez MD - 01/24/2024 1:37 PM EDT RX sent documented in this [facility]09-03-2024 Telephone encounter Note* Telephone Encounter - Grayson Hernandez MD - 01/24/2024 1:37 PM EDT RX sent [id number] History of Present illness Narrative* Larissa Weathers [...] snack and beverage provided. [facility] History of Present illness Narrative* Tameka Adan [...] a responsible adult. Yes [facility] Hospital Discharge instructions* Discharge Instructions* Tameka Adan, ROGE - 09/01/2023 12:33 PM EDT Images from [...] your doctor if you can take an ekqm-kbq-ztfqzxd medicine. If you think your pain medicine [...] or uneven pulse. After calling 911, the massage operator may tell you to chew 1 [...] Where can you learn more? Go to [email or web address] and sign in to your Nexopia account. Enter G817 in the Search Health Information box to learn more about Sedation for a Medical Procedure: Care Instructions. If you do not have an account, please click on the Sign Up Now link. [employer]. Care instructions adapted under license by [employer]. This care instruction is for use with your licensed healthcare professional. If you have questions about amedical condition or this instruction, always ask your healthcare professional. [employer] disclaims any warranty or liability for your use of this information. Content Version: [id number]; Current as of: January 29, 2014 [facility] Miscellaneous Notes* Telephone Encounter - Portia Osorio - 07/04/2023 8:14 AM EST What is the reason for the call? Patients needs to cancel the appt for tomorrow and reschedule. They have other commitments at this time. What is a good call back number? Sydnee [phone] * Telephone Encounter - Beth Flores CMA [...] to see Dr Monroy. [facility] Telephone encounter Note* Telephone Encounter - Portia Osorio - 07/04/2023 8:14 AM EST What is the reason for the call? Patients needs to cancel the appt for tomorrow and reschedule. They have other commitments at this time. What is a good call back number? Martha- [phone] [facility]02-12-2024 Telephone encounter Note* Telephone Encounter - Beth Flores CMA - 07/04/2023 8:14 AM EST Called Martha back to resched tmrw's apt. Unavailable; LVM and call back number [facility]12[facility] Telephone encounter Note* Telephone Encounter - Larissa Kim - 07/04/2023 8:14 AM EST Spoke with Martha, he spoke with pcp and that doctor is going to take responsibility for the patients care/treatment needed and no longer wishes to see Dr Monroy. [facility]01-08-2024 Miscellaneous Notes* Telephone Encounter - Alma Hankins [...] patient. Best Contact: * Telephone Encounter - Larisas Kim - 05/30/2023 10:49 AM EST Spoke with patients spouse and scheduled appt [facility] Telephone encounter Note* Telephone Encounter - Alma Hankins RN - 05/30/2023 10:49 AM EST Per May 2023 recall, patient is due for follow up appointment with Dr. Monroy. Please call to schedule with Dr. Monroy or SCHUYLER. [employer]01-08-2024 Telephone encounter Note* Telephone Encounter - Larissa Kim - 05/30/2023 10:49 AM EST Called patients mobile (belongs to spouse) and left VM Called patients home and left VM [employer]01-08-2024 Telephone encounter Note* Telephone Encounter - Nidhi Nicolas - 05/30/2023 10:49 AM EST Patient's nurse called to schedule appointment. Below is the best contact for the patient. Best Contact: [employer]01-08-2024 Telephone encounter Note* Telephone Encounter - Larissa Kim - 05/30/2023 10:49 AM EST Spoke with patients spouse and scheduled appt [employer]02-25-2023 Evaluation note* Encounter Date Diagnosis Assessment Notes [...] weeks for the cough to go away [employer] [facility] 04-18-2022 History of Present illness Narrative* Ambika Romero RCP - 09/07/2021 9:30 AM EDT The patient was educated on the use of an event monitor. The patient's comprehension was high. The patient was able to verbalize recall. The patient was instructed on how and when to return the monitor. documented in this encounterUniversity [facility] CenterAmigoCAT Phone: [phone] Evaluation note* Encounter Date Diagnosis Assessment Notes [...] educated regarding the risks and benefits of chcf opioid use. She understands the associated risks with this medication and agrees that it provides reasonable benefit in regards to her pain control and level of function. This medication was filled today. May, Other Above note writ ten by Michael Houston CMA, Screen Making Technician. Edited and approved by Dr. Martha Rendon MD. [employer] Other 02-01-2020 History general Narrative - Reported* Type Description Date Medical History Hypertension Medical History Diabetes Medical History Hypokalemia Surgical History hysterectomy Surgical History cholecystectomy Surgical History triple bypass, valve replacemen t 06/2019 Hospitalization History see above [employer] Other 02-01-2020 History general Narrative - Reported* Type Description Date Medical History Hypertension Medical History Diabetes Medical History Hypokalemia Surgical History hysterectomy Surgical History cholecystectomy Surgical History triple bypass, valve replacemen t 06/2019 Surgical History cataract removal 2022 Hospitalization History see above [employer] Other Consult note* Clinical Note Date No Information [facility] Work Phone: Discharge summary* Clinical Note Date No Information [facility] Work Phone: Evaluation note* Diagnosis Hypertension, unspecified type Hyperlipidemia, unspecified hyperlipidemia type Other specified diabetes mellitus with other specified complication, 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) Vitamin D deficiency disease Unspecified vitamin D deficiency documented in this encounter [employer] Phone: evaluation note* Diagnosis Hypertension, unspecified type Hyperlipidemia, unspecified hyperlipidemia type Other specified diabetes mellitus with other specified complication, unspecified whether chcf insulin use (HCC) Vitamin D deficiency disease Unspecified vitamin D deficiency documented in this encounter [employer] Phone: evaluation note* Diagnosis Systolic murmur Undiagnosed cardiac murmurs Moderate mitral regurgitation Mitral valve disorders Severe aortic stenosis Aortic valve disorders documented in this encounter [employer] Phone: evaluation note* Diagnosis Palpitations documented in this encounter [employer] Phone: evaluation note* Diagnosis Diastolic congestive heart failure, NYHA class 1, unspecified congestive heart failure chronicity ([facility]) documented in this encounter [facility] HealthcareEvaluation note* Diagnosis Mild mitral stenosis by prior echocardiogram- Primary Mitral stenosis Chronic a-fib ([facility]) Atrial fibrillation documented in this encounter [facility]* Diagnosis SOB (shortness of breath) Shortness of breath documented in this [facility]* Diagnosis Chronic organic brain syndrome [...] class 1, unspecified congestive heart failure chronicity ([facility]) [facility] encounter [facility]* Diagnosis Mixed hyperlipidemia ([facility]) Mixed hyperlipidemia documented in this encounter [facility]* Diagnosis Primary hypertension ([facility])- Primary Unspecified essential hypertension Mixed hyperlipidemia ([facility]) Mixed hyperlipidemia documented in [facility]* Diagnosis Anxiety associated with depression Dysthymic disorder documented [facility] encounter [facility]* Diagnosis Acquired hypothyroidism ([facility]) Unspecified hypothyroidism Benign essential hypertension ([facility]) Essential hypertension, benign documented in this encounter [facility]* Diagnosis Diastolic congestive heart failure, NYHA class 1, unspecified congestive heart failure chronicity ([facility]) documented in this encounter [facility]* Diagnosis Primary hypertension ([facility])- Primary Unspecified essential hypertension Chronic diastolic congestive heart failure, NYHA class 1 ([facility]) Mixed hyperlipidemia ([facility]) Mixed hyperlipidemia Hypokalemia Hypopotassemia Hypomagnesemia Disorders of magnesium metabolism Type 2 diabetes mellitus with stage 4 chronic kidney disease, without long-term current use of insulin ([facility]) Type 2 diabetes mellitus with hyperglycemia, without long-term current use of insulin ([facility]) Polypharmacy Issue of repeat prescriptions Edema, unspecified type documented in this encounter [facility]* Diagnosis Persistent disorder of initiating or maintaining sleep Vascular dementia with behavior disturbance ([facility]) Chronic organic brain syndrome Unspecified nonpsychotic mental disorder following organic brain damage Encounter for examination following treatment at hospital Encounter for staple removal Fall from standing, subsequent encounter Laceration of scalp, subsequent encounter Closed fracture of nasal bone with routine healing, subsequent encounter Stage 3b chronic kidney disease (HCC) ([facility]) Polypharmacy Issue of repeat prescriptions Overweight (BMI 25.0-29.9) Overweight documented in this encounter [facility] HealthcareEvaluation note* Diagnosis Acute bacterial conjunctivitis of both eyes- Primary Laceration of scalp, subsequent encounter Fall from standing, subsequent encounter Closed fracture of nasal bone with routine healing, subsequent encounter Encounter for examination following treatment at hospital Encounter for staple removal Polypharmacy Issue of repeat prescriptions Overweight (BMI 25.0-29.9) Overweight Acute conjunctivitis, unspecified acute conjunctivitis type, unspecified laterality documented in this encounter [facility] HealthcareEvaluation note* Diagnosis Generalized weakness Frequent falls History of falling Polypharmacy Issue of repeat prescriptions Type 2 diabetes mellitus with hyperglycemia, without long-term current use of insulin ([facility]) BMI 23.0-23.9, adult documented in this encounter [facility] HealthcareEvaluation note* Diagnosis Generalized weakness- Primary Frequent falls documented in this encounter [facility] HealthcareEvaluation note* Diagnosis Anxiety associated with depression- Primary Dysthymic disorder Primary hypertension ([facility]) Unspecified essential hypertension Chronic diastolic congestive heart failure, NYHA class 1 ([facility]) Edema, unspecified type Acquired hypothyroidism ([facility]) Unspecified hypothyroidism documented in this encounter [facility] HealthcareEvaluation note* Diagnosis Onset Date Resolution Status Admit Date Anemia of renal disease acute M 2024 1:55pm Asymptomatic bacteriuria acute October 16, 2024 1:55pm CKD (chronic kidney disease) stage 4, GFR 15-29 ml/min acute October 16 1:55pm Hyperlipidemia acute October 16, 2024 1:55pm Hypertensive chronic kidney disease with stage 1 through stage 4 chronic ki acute October 16, 2024 1 :55pm Secondary hyperparathyroidism acute October 16, 2024 1:55pm Type 2 diabetes mellitus wit h diabetic chronic kidney disease acute October 16, 2024 1:55pm [facility] Work Phone: Evaluation note* Diagnosis Seborrheic keratosis- Primary History of basal cell carcinoma Personal history of other malignant neoplasm of skin Lentigines Other seborrheic dermatitis documented in this encounter [facility] HealthcareEvaluation note* Diagnosis Mitral valve stenosis, unspecified etiology [facility] Diagnosis Hypermagnesemia Disorders of magnesium metabolism [facility]* Diagnosis Chronic diastolic congestive heart failure, NYHA class 1 (HCC)- Primary Primary hypertension Unspecified essential hypertension Edema, unspecified type Anxiety associated with depression Dysthymic disorder documented in this encounter [facility] HealthcareHistory and physical note* Clinical Note Date No Information [facility] Work Phone: Hospital Discharge instructions* Attachments The following attachments cannot be sent through Care Everywhere. * Stroke: Know the Signs and BE FAST: Video (Portuguese) documented in this encounterRivers[facility] HospitalInstructionsNot on file documented in this encounterBu[facility] ChipIn SystemInstructionsNot on file documented in this encounterCorey Hospital SystemProgress note* Clinical Note Date No Information [facility] Work Phone: Reason for referral (narrative)* Reason For Referral No Information [facility] Work Phone: Reason for visit Narrative* Rehabilitation - Outpatient (Routine) - Authorized Specialty Diagnoses / Procedures Referred By Saira pina Referred To Contact Physical Therapy Diagnoses Generalized weakness Frequent falls Procedures [place] OFFICE/OUTPATIENT [facility] 60 MINUTES Grayson Hernandez MD [address] [place] [address] Phone: tel: fax:[phone] Roshan Mayfield, PT [address] [place] [address] Phone: tel: fax: Referral ID Status Reason Start Date Expiration Date Visits Requested Visits Authorized [id number] Authorized Specialty Services Required 09/19/2024 03/18/2025 99 99 [facility] HealthcareReason for [facility] Narrative* Imaging (Routine) - Closed Specialty Diagnoses / Procedures Referred By Saira pina Referred To Contact Diagnoses Mitral valve stenosis, unspecified etiology Procedures Echo (TTE) complete (PRN contrast/bubble/strain/3D) [place] ECHO TTHRC R-T 2D W/WOM-MODE COMPL SPEC&COLR D [place] TTE W OR WO FOL WCON,DOPPLER Anshul Irizarry MD [address] [place] [address] Phone: tel: fax: Referral ID Status Reason Start Date Expiration Date Visits Re quested Visits Authorized [id number] Closed 05/08/2024 05/08/2025 1 1 [facility] Discharge Instructions * Instructions* Ely Oneill RN [...] will Yes, copy in chart Spouse Martha [phone] Admitting Physician: Caro Teresa MD PCP: Grayson Hernandez MD Discharging Nurse: aniya Alvarez Hospital Unit/Room#: 1006/1006-01 Discharging Unit Phone Number: [phone] Emergency Contact: Extended Emergency Contact Information Primary Emergency Contact: DAHLIA MCCLAIN Mobile Relation: Child Secondary Emergency Contact: MARTHA MCCLAIN Address: [address] Mobile Relation: Spouse Past Surgical History: Past Surgical History: Procedure Laterality Date CABG WITH AORTIC VALVE REPLACEMENT N/A 07/03/2019 CABG CORONARY ARTERY BYPASS X3; AORTIC VALVE REPLACEMENT WITH 21MM INTUITY VALVE, ON PUMP, SWAN SHAWN, LOVE performed by Caro Teresa MD at [facility] CARDIAC CATHETERIZATION Bilateral 06/06/2019 Possible bypass & aortic valve replacement CHOLECYSTECTOMY COLONOSCOPY CORONARY ARTERY BYPASS GRAFT N/A 07/03/2019 CABG CORONARY ARTERY BYPASS REDO performed by Caro Teresa MD at [facility] GALLBLADDER SURGERY HC PICC POWERPICC DOUBLE 07/13/2019 HYSTERECTOMY STERNUM DEBRIDEMENT N/A 07/04/2019 STERNUM WASHOUT WITH STERNUM CLOSURE WITH STERNALOCK 360, 12 SELF-DRILLING LOCKING SCREWS 12MM, 4 SELFDRILLING LOCKING SCREWS 14MM. performed by Caro Teresa MD at [facility] Immunization History: There is no immunization history [...] Assisted Dressing Assisted Toileting Assisted Feeding Assisted Master Planner Assisted Med Delivery prefers mixed with applesauce [...] carbs/meal (1800kcals/day) Routes of Feeding: Oral Liquids: George Mason Thick Liquids Daily Fluid Restriction: no Last [...] applicable) Name: Address: Dialysis Schedule: Phone: Fax: Ship'S Captain/Tribunal Member signature: ICIAN SECTION Prognosis: Fair Condition at [...] the diagnosis listed and that she requires [facility] LTAC for greater 30 days. PHYSICIAN [...] your doctor if you can take an bgye-pec-rrjpsrs medicine. ? Do not take aspirin, ibuprofen [...] irregular heartbeat. After you call 911, the massage operator may tell you to chew 1 [...] Where can you learn more? Go to [email or web address] and sign in to your Nexopia account. Enter F467 in the Search Health Information box to learn more about Coronary Artery Bypass Graft: What to Expect atHome. If you do not have an account, please click on the Sign Up Now link. Current as of: August 29, 2018 Content Version: 12.3 [id number] [employer]. Care instructions adapted under license by [employer]. If youhave questions about a medical condition or this instruction, always ask your healthcare professional. [employer] disclaims any warranty or liability for your [...] Surgery in 2 week. Call office at [phone] for any problems. * Attachments The following attachments cannot be sent through Care Everywhere. * CABG (Coronary Artery Bypass Graft Surgery): General Info (Portuguese) * Aortic Valve Replacement Surgery: Post-op (Portuguese) * Antiplatelets After Ischemic Stroke: General Info (Portuguese) * Elevated INR (Portuguese) documented in this encounter Advance Directives Documents on File Type Date Recorded Patient [place] Expl anation ACP-Advance Directive 07/25/2019 1:29 PM Date Activated Date Inactivated Comments 09/01/2023 2:08 PM 09/01/2023 5:20 PM Date Activated Date Inactivated Comments 09/01/2023 2:08 PM 09/01/2023 2:08 PM Date Activated Date Inactivated Comments 07/03/2019 5:27 PM 07/24/2019 7:14 PM Documents on File Type Date Recorded Patient [employer] Expl anation Advance Directives and Livin g Will 06/06/2019 7:47 AM Latest Code Status on File Code Status Date Activated Date Inactivated Comments Full Code 06/06/2019 9:00 AM Documents on File Type Date Recorded Patient [place] Expl anation Advance Directives and Living Will Power of Video Machines Mechanic Documents on File Type Date Recorded Patient [place] Expl anation Advance Directives and Living Will Power of Video Machines Mechanic Latest Code Status on File Code Status Date Activated Date Inactivated Comments Full Code 07/03/2019 5:27 PM Documents on File Type Date Recorded Patient [place] Expl anation ACP-Advance Directive ACP-Advance Directive 07/25/2019 1:29 PM ACP-Power of Video Machines Mechanic Latest Code Status on File Code Status Date Activated Date Inactivated Comments Full Code 07/03/2019 5:27 PM 07/24/2019 7:14 PM Documents on File Type Date Recorded Patient [place] Expl anation Advance Directives and Livin g Will Advance Directives and Livin g Will 07/25/2019 1:29 PM Power of Video Machines Mechanic Documents on File Type Date Recorded Patient [place] Expl anation Advance Directives and Livin g Will 06/06/2019 7:47 AM Latest Code Status on File Code Status Date Activated Date Inactivated Comments Full Code 06/06/2019 9:00 AM Documents on File Type Date Recorded Patient [place] Expl anation ACP-Advance Directive ACP-Power of Video Machines Mechanic ACP-Advance Directive 07/25/2019 1:29 PM Documents on File Type Date Recorded Patient [place] Expl anation Power of Video Machines Mechanic 12/15/2022 9:23 AM Livin g Will Advance Directives and Livin g Will 12/15/2022 9:22 AM Latest Code Status on File Code [...] No Effective Date File Name No Information Documents on File Type Date Recorded Patient [place] Expl anation Power of Video Machines Mechanic 12/15/2022 9:23 AM Livin g Will Advance Directives and Livin g Will 12/15/2022 9:22 AM Advance Directive Response Recorded Date/ Time Advance Directives No September 29 7:54am Documents on File Type Date Recorded Patient [place] Expl anation ACP-Advance Directive 07/25/2019 1:29 PM Date Activated Date Inactivated Comments 09/01/2023 2:08 PM 09/01/2023 5:20 PM Date Activated Date Inactivated Comments 09/01/2023 2:08 PM 09/01/2023 2:08 PM Date Activated Date Inactivated Comments 07/03/2019 5:27 PM 07/24/2019 7:14 PM Summary Purpose Family History Relationship Condition Age [...] Contrast HC CT CHEST W/O CONTRAST Vasiliy Garcia, NUCLEAR WASTE MANAGEMENT ENGINEER - BOOKMOBILE LIBRARIAN [address] [facility] [address] [place] [address] Status Reason Specialty Diagnoses / Procedures Referred By Contact Referred To Contact Open Specialty Services Required Cardiac Rehabilitation Diagnoses CAD, multiple vessel Stvz Car [address] [place] [address] Status Reason Specialty Diagnoses / Procedures Re ferred By Contact Referred To Contact Open Cardiology Diagnoses Kidney insufficiency Hypertension, unspecified type Shortness of breath Hyperlipidemia, unspecified hyperlipidemia type Vitamin D deficiency disease Other specified diabetes mellitus with other specified complication, unspecified whether chcf insulin use (HCC) Procedures EKG 12 Lead Anshul Irizarry MD [address] [place] [id number] Status Reason Specialty Diagnoses / Procedures Re ferred By Contact Referred To Contact Open Cardiology Diagnoses Aortic valve stenosis, etiology of cardiac valve disease unspecified Shortness of breath Hypertension, unspecified type Hyperlipidemia, unspecified hyperlipidemia type Vitamin D deficiency disease Procedures EKG 12 Lead Anshul Irizarry MD [address] [place] [address] Status Reason Specialty Diagnoses / Procedures Referred By Contact Referred To Contact Pending Review Vascular Lab Diagnoses CAD, multiple vessel Pre-op testing Bilateral carotid bruits Procedures VL DUP CAROTID BILATERAL VL DUP CAROTID BILATERAL HC EXTRACRANIAL BILAT STUDY GarciaVasiliy, NUCLEAR WASTE MANAGEMENT ENGINEER - BOOKMOBILE LIBRARIAN [address] [facility] [address] [place] [address] [facility] [address] [place] [address] Status Reason Specialty Diagnoses / Procedures Re ferred By Contact Referred To Contact Pending Review Cardiology Diagnoses Hypertension, unspecified type Hyperlipidemia, unspecified hyperlipidemia type Other specified diabetes mellitus with other specified complication, 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) Vitamin D deficiency disease Procedures EKG 12 Lead [facility] [address] [place] [phone] Specialty Diagnoses / Procedures Referred By Contac t Referred To Contact Diagnoses Palpitations Procedures Cardiac event monitor Anshul Irizarry MD [address] [place] [phone] Referral ID Status Reason Start Date Expiration Date Visits Re quested Visits Authorized [id number] Closed 09/07/2021 09/07/2022 1 1 Specialty Diagnoses / Procedures Referred By Contac t Referred To Contact Diagnoses SOB (shortness of breath) Procedures Nuclear stress test with myocardial perfusion Anshul Irizarry MD [address] [place] [address] Referral ID Status Reason Start Date Expiration Date Visits Re quested Visits Authorized [id number] Closed 09/27/2023 10/28/2023 3 3 Assessments Diagnosis CAD, multiple vessel Coronary atherosclerosis of unspecified type of vessel, anvik or graft Pre-op testing Preoperative examination, unspecified Diagnosis CAD, multiple vessel- Primary Coronary atherosclerosis of unspecified type of vessel, anvik or graft S/P AVR (aortic valve replacement) [...] with other specified complication, 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) Diagnosis Aortic valve stenosis, etiology of cardiac valve disease unspecified Shortness of breath Hypertension, unspecified type Hyperlipidemia, unspecified hyperlipidemia type Vitamin D deficiency disease Unspecified vitamin D deficiency Diagnosis CAD, multiple vessel Coronary atherosclerosis of unspecified type of vessel, anvik or graft Pre-op testing Preoperative examination, unspecified Bilateral carotid bruits Hospital Course * Vasiliy Garcia, NUCLEAR WASTE MANAGEMENT ENGINEER - BOOKMOBILE LIBRARIAN - 07/24/2019 9:09 AM EST [facility] Cardiothoracic Surgery Discharge Summary Patient's Name/Date of : Eleanor Mcclain / 1950 (68 y.o.) Admission Date: 07/03/2019 5:13 AM Discharge Date: 07-24-19 Discharge Physician: Discharge Unit: CAR1 Discharge condition: fair Disposition: LTAC Reason For Admission: CABG + AVR HPI: Eleanor Mcclain is a 68 y.o. female who presents to [facility] for a CABG x3 and AVR. Brief [...] planning beginning and patient going to [facility] Patient started on 5 mg of Coumadin [...] Past Medical History: Diagnosis Date Aortic stenosis Dr.Vigesaa- benitez Carrasco CAD (coronary artery disease) Chronic kidney disease CVA (cerebral vascular accident) ([facility]) 2011 no deficits Diabetes mellitus ([facility]) Dr. Richards Hyperlipidemia Hypertension Dr. Richards Kidney failure Wears dentures full upper plate, lower partial Wears prescription eyeglasses Wellness examination Dr. Richards seen in 03/2019 Past Surgical History: Procedure Laterality Date CABG WITH AORTIC VALVE REPLACEMENT N/A 07/03/2019 CABG CORONARY ARTERY BYPASS X3; AORTIC VALVE REPLACEMENT WITH 21MM INTUITY VALVE, ON PUMP, SWAN [place]AWN, LOVE performed by Caro Teresa MD at [facility] CVOR CARDIAC CATHETERIZATION Bilateral 06/06/2019 Possible bypass & aortic valve replacement CHOLECYSTECTOMY COLONOSCOPY CORONARY ARTERY BYPASS GRAFT N/A 07/03/2019 CABG CORONARY ARTERY BYPASS REDO performed by Caro Teresa MD at [facility] CVOR GALLBLADDER SURGERY HC PICC POWERPICC DOUBLE 07/13/2019 HYSTERECTOMY STERNUM DEBRIDEMENT N/A 07/04/2019 STERNUM WASHOUT WITH STERNUM CLOSURE WITH STERNALOCK 360, 12 SELF-DRILLING LOCKING SCREWS 12MM, 4 SELFDRILLING LOCKING SCREWS 14MM. performed by Caro Teresa MD at [facility] CVOR Allergies Allergen Reactions Latex Anaphylaxis Eyes [...] file Gets together: Not on file Attends worship service: Not on file Active member of [...] Your Medications These medications were sent to [facility] - [place], [place] - [address] [facility] - P [phone] - F [phone] [address] [address] amiodarone 200 MG tablet atorvastatin 40 MG [...] per tablet Data: CBC: Recent Labs 07/22/19 04007/23/19 0638 07/24/19 0637 WBC 17.3* 10.8 7.8 HGB 9.1* 9.1* 8.4* HCT 30.6* 31.2* 29.2* MCV 95.3 97.5 100.0 PLT 291 276 207 BMP: Recent Labs 07/22/19 04007/23/19 0638 07/23/19 0705 07/24/19 0637 NA 144 [...] last 72 hours. PTT/PT/INR: Recent Labs 07/22/19 04007/23/19 0638 07/24/19 0637 PROTIME 12.4* 13.6* 29.8* [...] Surgery in 2 week. Call office at [phone] for any problems. Follow up with PCP and cardiology in 1-2 weeks. [facility] will manage coumadin and INR while [...] Coumadin,ARB, BB, and Statin therapy per protocol. VASILIY GARCIA CNP documented in this encounter History of Present Illness * Ligia Ybarra OT - 07/24/2019 4:31 PM EST Occupational Therapy Facility/Department: [facility] CAR 1 Daily Treatment Note NAME: Eleanor [...] andfeet) UE Dressing: Moderate assistance;Setup;Increased time to complete(w/machine tack puller shirt) LE Dressing: Moderate assistance;Maximum assistance;Setup;Increased [...] 1625 Minutes 40 40 combined treatment minutes ABIMBOLA ALICEA/Ada * Loraine Mary RD, LD - 07/24/2019 2:18 PM EST [...] Fluid Accumulation-Mild fluid accumulation, Extremities, Generalized 6. Director Of Front Office Strength-Not measured Nutrition Risk Level: Moderate Nutrient Needs: Estimated Daily Total Kcal: 1.2-1.4 ~>6257-7690 kcals/d Estimated Daily Protein (g): 1.2-1.4 gm/kg [...] 36 lb wt gain x 1 wk [place] Body Wt: 110 lb 3.7 oz (50 kg), % [place] Body 159% adm/ideal BMI Classification: BMI 25.0 [...] 12:08 PM EST [facility] - Progress Note Today's Date and Time: 07/24/2019, 12:08 PM Impression : CAD s/p CABG and AVR S/p Redo CABG s/p graft dysfunction Hypovolemic shock - resolved Rt CVA Leukocytosis Encephalopathy Acute respiratory failure ARDS Recommendations: Leukocytosis is likely reactive Monitor off antibiotics D/C Unasyn D/C Ceftriaxone D/C cefepime Pulmonary toilet Monitor clinical progression Removal of PICC prior to discharge OK to D/C ID smith Medical Decision Making/Summary/Discussion:07/24/2019 Patient with CAD [...] improved response time, AA Infection Control Recommendations [place] Precautions Antimicrobial Stewardship Recommendations Discontinuation of therapy [...] History: Diagnosis Date Aortic stenosis - in [place] CAD (coronary artery disease) Chronic kidney disease CVA (cerebral vascular accident) ([facility]) 2011 no deficits Diabetes mellitus ([facility]) Dr. Richards Hyperlipidemia Hypertension Dr. Richards Kidney [...] LOVE performed by Caro Teresa MD at [facility] CVOR CARDIAC CATHETERIZATION Bilateral 06/06/2019 Possible bypass & aortic valve replacement CHOLECYSTECTOMY COLONOSCOPY CORONARY ARTERY BYPASS GRAFT N/A 07/03/2019 CABG CORONARY ARTERY BYPASS REDO performed by Caro Teresa MD at [facility] CVOR GALLBLADDER SURGERY HC PICC POWERPICC DOUBLE 07/13/2019 HYSTERECTOMY STERNUM DEBRIDEMENT N/A 07/04/2019 STERNUM WASHOUT WITH STERNUM CLOSURE WITH STERNALOCK 360, 12 SELF-DRILLING LOCKING SCREWS 12MM, 4 SELFDRILLING LOCKING SCREWS 14MM. performed by Caro Teresa MD at [facility] CVOR Medications: warfarin (COUMADIN) daily dosing (placeholder) [...] file Gets together: Not on file Attends worship service: Not on file Active member of [...] or atelectasis. 3. Interval extubation. Medical Decision Dlwryq-Kodnezra-Rcoxg: 07/17/2019 10:16 AM - [place] Incoming Lab Results From [facility] Specimen Information: Sputum, Suctioned Component Collected Lab Specimen Description 07/15/2019 11:48 AM [facility] - [facility] .SUCTIONED SPUTUM Special Requests 07/15/2019 11:48 AM [facility] NOT REPORTED Direct Exam 07/15/2019 11:48 AM [facility] - [place] < 10 EPITHELIAL CELLS/LPF Direct Exam 07/15/2019 11:48 AM [facility] >25 NEUTROPHILS/LPF Direct Exam Abnormal 07/15/2019 11:48 AM [facility] PREDOMINANT ORGANISM: GRAM NEGATIVE RODS Direct Exam Abnormal 07/15/2019 11:48 AM [facility] - [place] MIXED BACTERIAL MORPHOTYPES ALSO PRESENT ON GRAM STAIN. Culture Abnormal 07/15/2019 11:48 AM [facility] - [facility] YEAST, NOT SILVIO ALBICANS OR SILVIO DUBLINIENSIS HEAVY GROWTH Culture 07/15/2019 11:48 AM [facility] - [place] NORMAL RESPIRATORY ROSEANNA SCANT GOWTH 07/16/2019 8:17 AM - [place], [facility] Incoming Lab Results From [facility] Specimen Information: Blood Component Collected Lab Specimen Description 07/15/2019 1:54 PM [facility] - [place] .BLOOD Special Requests 07/15/2019 1:54 PM [facility] - [facility] L ARM 10 CC Culture 07/15/2019 1:54 PM [facility] - [facility] NO GROWTH 17 HOURS 07/13/2019 1:00 PM - [place], [facility]pn Incoming Lab Results From [facility] Specimen Information: Tracheal Aspirate Component Collected Lab [...] data were reviewed Discussed with nursing Staff, urban planner Infection Control and Prevention measures reviewed All prior entries were reviewed Administer medications as ordered Prognosis: Guarded Discharge planning reviewed Follow up as outpatient. Thank you for allowing us to participate in the care of this patient. Please call with questions. Titus Hyde MD Pager: - Office: * Alannah Love - 07/24/2019 11:40 AM EST Speech Language Pathology Speech Language Pathology [facility] Cognitive Treatment Note Date: 07/24/2019 Patient s [...] max verbal cues Problem Solving/Reasoning: Category Members [place]: 12/20 independently, increased to 20/20 with min verbal cues Plan: [x] Continue ST services [] Discharge from ST: Discharge recommendations: Further therapy recommended at discharge. Completed by Alannah Love, Voice Coach Clinician Co-signed by Ambika Jang M.A.CCC/GLASS ROBOT OPERATOR * Nicola Dutta PTA - 07/24/2019 10:52 AM EST Physical Therapy Facility/Department: [facility] 1 Daily Treatment Note NAME: Eleanor Mcclain [...] Patient's name: Eleanor Mcclain Patient's account/billing number: [id number] Patient's Date of : 1950 Age: 68 [...] PRN ABG Lab Results Component Value Date QPE1AVV 31 07/21/2019 FIO2 15.0 07/21/2019 Laboratory findings: Complete Blood Count: Recent Labs 07/21/1933807/22/1940807/23/19 0638 WBC 15.1* 17.3* 10.8 HGB 8.5* 9.1* 9.1* HCT 28.5* 30.6* 31.2* PLT 287 291 276 Last 3 Blood Glucose: Recent Labs 07/22/1940807/23/19 0638 07/23/19 0705 GLUCOSE 105* 88 95 PT/INR: Lab Results Component Value Date PROTIME 13.6 07/23/2019 INR 1.3 07/23/2019 PTT: Lab Results Component Value Date APTT 67.2 07/23/2019 Comprehensive Metabolic Profile: Recent Labs 07/22/1940807/22/19205407/23/19 0638 07/23/19 0705 NA [...] 3:55 PM EST [facility] - Progress Note Today's Date and Time: [...] commands, oriented x 3 Infection Control Recommendations [place] Precautions Antimicrobial Stewardship Recommendations Discontinuation of therapy [...] Chronic kidney disease CVA (cerebral vascular accident) ([facility]) 2011 no deficits Diabetes mellitus ([facility]) Dr. Richards Hyperlipidemia Hypertension Dr. Richards Kidney [...] LOVE performed by Caro Teresa MD at [facility] CVMO CARDIAC CATHETERIZATION Bilateral 06/06/2019 Possible bypass & aortic valve replacement CHOLECYSTECTOMY COLONOSCOPY CORONARY ARTERY BYPASS GRAFT N/A 07/03/2019 CABG CORONARY ARTERY BYPASS REDO performed by Caro Teresa MD at [facility] CVOR GALLBLADDER SURGERY HC PICC POWERPICC DOUBLE 07/13/2019 HYSTERECTOMY STERNUM DEBRIDEMENT N/A 07/04/2019 STERNUM WASHOUT WITH STERNUM CLOSURE WITH STERNALOCK 360, 12 SELF-DRILLING LOCKING SCREWS 12MM, 4 SELFDRILLING LOCKING SCREWS 14MM. performed by Caro Teresa MD at [facility] Medications: bumetanide 2 mg Oral BID enoxaparin [...] file Gets together: Not on file Attends worship service: Not on file Active member of [...] labs: CBC with Differential: Recent Labs 07/22/19 0409 07/23/19 0638 WBC 17.3* 10.8 HGB 9.1* 9.1* [...] or atelectasis. 3. Interval extubation. Medical Decision Omyebu-Kegyaifg-Nuxki: 07/17/2019 10:16 AM - [place] jackie Incoming Lab Results From [facility] Specimen Information: Sputum, Suctioned Component Collected Lab Specimen Description 07/15/2019 11:48 AM [facility] .SUCTIONED SPUTUM Special Requests 07/15/2019 11:48 AM [facility] Mary NOT REPORTED Direct Exam 07/15/2019 11:48 AM [facility] < 10 EPITHELIAL CELLS/LPF Direct Exam 07/15/2019 11:48 AM [facility] [place] >25 NEUTROPHILS/LPF Direct Exam Abnormal 07/15/2019 11:48 AM [facility] PREDOMINANT ORGANISM: GRAM NEGATIVE RODS Direct Exam Abnormal 07/15/2019 11:48 AM [facility] MIXED BACTERIAL MORPHOTYPES ALSO PRESENT ON GRAM STAIN. Culture Abnormal 07/15/2019 11:48 AM [facility] YEAST, NOT SILVIO ALBICANS OR SILVIO DUBLINIENSIS HEAVY GROWTH Culture 07/15/2019 11:48 AM [facility] NORMAL RESPIRATORY ROSEANNA SCANT GOWTH 07/16/2019 8:17 AM - [place], pn Incoming Lab Results From [facility] Specimen Information: Blood Component Collected Lab Specimen Description 07/15/2019 1:54 PM [facility] - [place] .BLOOD Special Requests 07/15/2019 1:54 PM [facility] - [facility] L ARM 10 CC Culture 07/15/2019 1:54 PM [facility] - [place] NO GROWTH 17 HOURS 07/13/2019 1:00 PM - [facility] Briggs Incoming Lab Results From [facility] Specimen Information: Tracheal Aspirate Component Collected Lab [...] data were reviewed Discussed with nursing Staff, urban planner Infection Control and Prevention measures reviewed All prior entries were reviewed Administer medications as ordered Prognosis: Guarded Discharge planning reviewed Follow up as outpatient. Thank you for allowing us to participate in the care of this patient. Please call with questions. Titus Hyde MD Pager: - Office: * Aleah Hidalgo OTA - 07/23/2019 2:30 PM EST Occupational Therapy Facility/Department: [facility] CAR 1 Daily Treatment Note NAME: Eleanor [...] tx time ABIMBOLA ALICEA/Ada * Meseret Arechiga, MARICRUZ - TAIL BOARD WORKER - 07/23/2019 2:13 PM EST Daily Progress Note Neuro Critical Care Patient Name: Eleanor Mcclain Patient : 1950 Room/Bed: [address] [place] [address] Code Status: FULL Allergies: Allergies Allergen Reactions [...] occlusion left A1 MONSTER, 90% stenosis R APPLICATIONS ENGINEER. Results of imaging reviewed at length with [...] of the P2 segment of the right APPLICATIONS ENGINEER. Additional 80% focal stenosis along the P2 segments of the bilateral it project lead. 40% stenosis at the origins of the [...] of the P2 segment of the right APPLICATIONS ENGINEER. Additional 80% focal stenosis along the P2 segments of the bilateral it project lead. 40% stenosis at the origins of the [...] of the P2 segment of the right APPLICATIONS ENGINEER. Additional 80% focal stenosis along the P2 segments of the bilateral it project lead. 40% stenosis at the origins of the [...] patient status please contact Neuro Critical Care. MARICRUZ Guaman CNP Neuro Critical Care Pager [phone] 07/23/2019 2:13 PM * Kelli Keen, GLASS ROBOT OPERATOR - 07/23/2019 11:31 AM EST Speech Language Pathology Speech Language Pathology [facility] Speech Language Treatment Note Date: 07/23/2019 Patient [...] and year. Auditory Comprehension: Automatic speech tasks: /3 with min prompts Yes/No questions: 6/6 with [...] ST: Discharge recommendations: [] Inpatient Rehab [] Jail Facility [] Outpatient Therapy [] Follow up at trauma clinic [x] Other: Treatment completed by: Kelli Keen M.A. [facility]-GLASS ROBOT OPERATOR * Kelli Keen SLP - 07/23/2019 11:27 AM EST Speech Language Pathology Speech Language Pathology [facility] Dysphagia Treatment Note Date: 07/23/2019 Patient s Name: Eleanor Mcclain Diagnosis: dysphagia Patient Active Problem List Diagnosis Code CAD, multiple vessel I25.10 Encephalopathy G93.40 Acute cerebral infarction (HCC) I63.9 Seizure ([facility]) R56.9 Encephalopathy, unspecified G93.40 Ischemic stroke ([facility]) I63.9 Chronic a-fib I48.20 Anticoagulated Z79.01 Acute postoperative respiratory failure ([facility]) J95.821 Cervical stenosis of spinal canal M48.02 [...] ST: Discharge recommendations: [] Inpatient Rehab [] Jail Facility [] Outpatient Therapy [] Follow up at trauma clinic [x] Other: To be determined at discharge. Treatment completed by: Kelli Keen M.A. [facility]-GLASS ROBOT OPERATOR * Nghia Jackson MD - 07/23/2019 10:20 [...] solution, PRN LABS CBC: Recent Labs 07/21/19 0339 07/22/19 0409 07/23/19 0638 WBC 15.1* 17.3* 10.8 RBC 2.97* 3.21* 3.20* HGB 8.5* 9.1* 9.1* HCT 28.5* 30.6* 31.2* MCV 96.0 95.3 97.5 MCH 28.6 28.3 28.4 MCHC 29.8 29.7 29.2 RDW 16.0* 15.5* 15.6* PLT 287 291 276 MPV 10.0 9.7 9.9 BMP: Recent Labs 07/22/19 0409 07/22/19205407/23/19 0638 07/23/19 0705 NA 144 -- 144 143 K 3.7 3.7 4.0 3.8 CL 106 -- 104 104 CO2 24 -- 26 27 BUN 45* -- 34* 33* CREATININE 1.49* -- 1.29* 1.28* GLUCOSE 105* -- 88 95 CALCIUM 8.9 -- 9.0 8.9 PHOSPHORUS: Recent Labs 07/23/19 0638 PHOS 2.9 MAGNESIUM: Recent Labs 07/21/19 0339 07/22/19 04007/23/19 0638 MG 3.1* 2.8* 2.6 TETO: [...] 07/23/2019 9:52 AM EST Physical Therapy Facility/Department: [facility] 1 Re-Evaluation Assessment NAME: Eleanor Mcclain : 1950 [...] AD at baseline) Transfer Assistance: Independent Active Assigner: Yes Mode of Transportation: Car 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 First STS performed with BUE WORKERS COMPENSATION ATTORNEY, second performed with UE support on RW. [...] Score: 53.33 (07/23/19950) Mobility Inpatient without Stair CMS G-Code Modifier : CK (07/23/19950) Goals Short [...] Time Individual Concurrent Group Co-treatment Time In 0904 Time Out 0928 Minutes 24 Timed Code Treatment Minutes: 11 Minutes Anne Alexandre PT * Raisa Loyola - 07/23/2019 9:06 AM EST Pulmonary critical care progress note. Date and time: 07/23/2019 09:05 AM Patient's name: Eleanor Mcclain Patient's account/billing number: [id number] Patient's Date of : 1950 Age: 68 [...] History: Diagnosis Date Aortic stenosis - in [place] CAD (coronary artery disease) Chronic kidney disease CVA (cerebral vascular accident) ([facility]) 2011 no deficits Diabetes mellitus ([facility]) Dr. Richards Hyperlipidemia Hypertension Dr. Richards Kidney failure Wears dentures full upper plate, lower partial Wears prescription eyeglasses Wellness examination Dr. Richards seen in 03/2019 Past Surgical History: Procedure Laterality Date CABG WITH AORTIC VALVE REPLACEMENT N/A 07/03/2019 CABG CORONARY ARTERY BYPASS X3; AORTIC VALVE REPLACEMENT WITH 21MM INTUITY VALVE, ON PUMP, SWAN [place]AW[place], LOVE performed by Caro Teresa MD at [facility] CVOR CARDIAC CATHETERIZATION Bilateral 06/06/2019 Possible bypass & aortic valve replacement CHOLECYSTECTOMY COLONOSCOPY CORONARY ARTERY BYPASS GRAFT N/A 07/03/2019 CABG CORONARY ARTERY BYPASS REDO performed by Caro Teresa MD at [facility] CVOR GALLBLADDER SURGERY HC PICC POWERPICC DOUBLE 07/13/2019 HYSTERECTOMY STERNUM DEBRIDEMENT N/A 07/04/2019 STERNUM WASHOUT WITH STERNUM CLOSURE WITH STERNALOCK 360, 12 SELF-DRILLING LOCKING SCREWS 12MM, 4 SELFDRILLING LOCKING SCREWS 14MM. performed by Caro Teresa MD at [facility] Allergies: Allergies Allergen Reactions Latex Anaphylaxis Eyes [...] hours as needed for Itching Historical Provider, Misc Natural Products (COLON-AID) CAPS Take by mouth [...] glucagon (rDNA), dextrose LABS:- CBC: Recent Labs 07/21/19 0339 07/22/19 0409 07/23/19 0638 WBC 15.1* 17.3* 10.8 HGB 8.5* 9.1* 9.1* PLT 287 291 276 BMP: Recent Labs 07/22/19 04007/22/19205407/23/19 0638 07/23/19 [...] ABGs: No results found for: PHART, PO2ART, PPM3XGX INR: Recent Labs 07/21/19 0339 07/22/19 0409 07/23/19 0638 INR 1.2 1.2 1.3 Thyroid: Lab [...] of the P2 segment of the right APPLICATIONS ENGINEER. Additional 80% focal stenosis along the P2 segments of the bilateral it project lead. 40% stenosis at the origins of the [...] of the P2 segment of the right APPLICATIONS ENGINEER. Additional 80% focal stenosis along the P2 segments of the bilateral it project lead. 40% stenosis at the origins of the [...] of the P2 segment of the right APPLICATIONS ENGINEER. Additional 80% focal stenosis along the P2 segments of the bilateral it project lead. 40% stenosis at the origins of the [...] this chart was generated using voice recognition [employer] dictation software. Although every effort was made to ensure the accuracy of this automated transportation attendant, some errors in transportation attendant may have occurred. Raisa Loyola MS4 [facility]) 07/22/2019, 11:05 AM Raisa Loyola 07/23/2019, 9:06 AM * Dominguez Plummer PA - 07/23/2019 7:[address] surgical issues request transfer to medicine service. Appreciate assistance. Dominguez Plummer * Cole Arteaga DO - 07/23/2019 7:03 AM EST [place] Courseware Developer Progress Note Date: 07/23/2019 Patient name: Eleanor [...] sodium chloride 250 mL infusion 16 Units/kg/hr (07/23/19300) dextrose CBC: Recent Labs 07/21/1933807/22/19408 WBC 15.1* 17.3* HGB 8.5* 9.1* PLT [...] of the P2 segment of the right APPLICATIONS ENGINEER. Additional 80% focal stenosis along the P2 segments of the bilateral it project lead. 40% stenosis at the origins of the [...] management per CT surgery Kanwal Michel MD, Cloth Mercerizer Back Tender Thank you for allowing us to participate in Eleanor Mcclain's care. Will follow with you. Attending Senior Quality Control Technician Addendum: I have reviewed and performed the [...] you have any questions. Cole Arteaga DO, [facility], [facility] Courseware Developer [facility] * Jaimee Estes RN - 07/22/2019 5:46 [...] maintained. All monitor alarms maintained. * Jacqueline Rudd SLP - 07/22/2019 12:02 PM EST Speech Language Pathology Facility/Department: [facility] CAR 1 CLINICAL BEDSIDE SWALLOW EVALUATION NAME: Eleanor [...] 2016, she had mild aortic stenosis with [id number]-tq-rcubtbah mitral and tricuspid regurgitation, with normal ejection fraction. On 07/12/2017, she had another echocardiogram that showed an EF of 55% with severe dilatation of the left atrium and right atrium, and right ventricle normal.She had moderate aortic stenosis, read on an echocardiogram in [place]. Her last echocardiogram was on 03/30/2019, also at [place]. This showed normal EF of 55% to [...] This was noticed when she went to [facility] in 06/2018 and had difficulty with [...] Moist (Dysphagia II) diet with Mildly Thick ([place] Thick) liquids as evidenced by no overt [...] more diet consistencies restricted Treatment Plan Requires GLASS ROBOT OPERATOR Intervention: Yes Duration/Frequency of Treatment: 2-3x per week D/C Recommendations: Further therapy recommended at discharge. Recommended Diet and Intervention Diet Solids Recommendation: Dysphagia Minced and Moist (Dysphagia II) Liquid Consistency Recommendation: Mildly Thick ([place]) Recommended Form of Meds: PO Recommendations: Dysphagia [...] Minced and Moist (Dysphagia II);Dysphagia Pureed (Dysphagia I);[employer] - teaspoon;Thin - teaspoon Pain Level: 0 [...] and agree with results and recommendations: Patient;Family member;relief pharmacist member consulted: children Education Patient Education: yes Patient Education Response: Verbalizes understanding Therapy Time GLASS ROBOT OPERATOR Individual Minutes Time In: 1134 Time Out: 1152 Minutes: 18 Jacqueline Rudd M.S. MARCI-GLASS ROBOT OPERATOR 07/22/2019 12:03 PM * Enio Zarate MD [...] PRN LABS CBC: Recent Labs 07/20/19 0648 07/21/19 03307/22/19 040 WBC 23.1* 15.1* 17.3* RBC 2.96* 2.97* 3.21* HGB 8.6* 8.5* 9.1* HCT 27.8* 28.5* 30.6* MCV 93.9 96.0 95.3 MCH 29.1 28.6 28.3 MCHC 30.9 29.8 29.7 RDW 16.2* 16.0* 15.5* PLT 370 287 291 MPV 10.2 10.0 9.7 BMP: Recent Labs 07/20/19 0648 07/21/19 0339 07/21/19204907/22/19 0409 NA 142 143 -- 144 K 4.5 4.4 -- 3.7 CL 101 103 -- 106 CO2 25 26 -- 24 BUN 51* 57* -- 45* CREATININE 1.70* 1.74* 1.78* 1.49* GLUCOSE 174* 184* -- 105* CALCIUM 8.7 9.0 -- 8.9 PHOSPHORUS: Recent Labs 07/20/19 0648 PHOS 5.4* MAGNESIUM: Recent Labs 07/20/19 0648 07/21/19 0339 07/22/19 0409 MG 2.8* 3.1* 2.8* TETO: Lab [...] Patient's name: Eleanor Mcclain Patient's account/billing number: [id number] Patient's Date of : 1950 Age: 68 [...] chloride 250 mL infusion 12 Units/kg/hr (07/22/19 0729) dextrose PRN Meds: potassium chloride, 10 mEq, [...] Yes ABG Lab Results Component Value Date YHG2MBL 31 07/21/2019 FIO2 15.0 07/21/2019 Laboratory findings: Complete Blood Count: Recent Labs 07/20/19 0648 07/21/19 0339 07/22/19 0409 WBC 23.1* 15.1* 17.3* HGB 8.6* 8.5* 9.1* HCT 27.8* 28.5* 30.6* PLT 370 287 291 Last 3 Blood Glucose: Recent Labs 07/20/19 0648 07/21/19 0339 07/22/19 0409 GLUCOSE 174* 184* 105* PT/INR: Lab Results Component Value Date PROTIME 12.4 07/22/2019 INR 1.2 07/22/2019 PTT: Lab Results Component Value Date APTT 59.4 07/22/2019 Comprehensive Metabolic Profile: Recent Labs 07/20/19 0648 07/21/19 0339 07/21/19204907/22/19 0409 NA 142 143 -- 144 K [...] of the P2 segment of the right APPLICATIONS ENGINEER. Additional 80% focal stenosis along the P2 segments of the bilateral it project lead. 40% stenosis at the origins of the [...] of the P2 segment of the right APPLICATIONS ENGINEER. Additional 80% focal stenosis along the P2 segments of the bilateral it project lead. 40% stenosis at the origins of the [...] of the P2 segment of the right APPLICATIONS ENGINEER. Additional 80% focal stenosis along the P2 segments of the bilateral it project lead. 40% stenosis at the origins of the [...] this chart was generated using voice recognition [employer] dictation software. Although every effort was made to ensure the accuracy of this automated transportation attendant, some errors in transportation attendant may have occurred. Luda Thapa M.D. Pulmonary and critical care attending [facility]) 07/22/2019, 11:05 AM Associated attestation - Eileen Jaimee Sanabria, DO - 07/22/2019 3:30 PM EST Attending Physician Statement I have discussed the care of Eleanor Mcclain, including pertinent history and exam findings, withthe pulmonary critical care fellow/resident/TAIL BOARD WORKER. I have seen and examined the patient and the mendoza elements of all parts of the encounter have been performed by me. I agree with the assessment, plan and orders as documented by the fellow/resident/TAIL BOARD WORKER. Covered from last night's episode. Currently on oxygen 5 L nasal cannula and adequate saturations. Actually feeding self although still very weak. Decreased breath sounds in the bases but otherwise generally clear. Chest x-ray a minimally worse however limited inspiration on current film limits comparison. Discussed with patient and family. Discharge planning for senior living facility. Patientpassed swallow study. Hopefully transfer next 24 to 48 hours. * Cole Arteaga, DO - 07/22/2019 7:25 AM EST [employer] Courseware Developer Progress Note Date: 07/22/2019 Patient name: Eleanor [...] Units/kg/hr (07/21/19 1219) dextrose CBC: Recent Labs 07/20/19 0648 07/21/19 0339 07/22/19 0409 WBC 23.1* 15.1* 17.3* HGB 8.6* 8.5* 9.1* PLT 370 287 291 BMP: Recent Labs 07/20/19 0648 07/21/19 0339 07/21/19204907/22/19 0409 NA 142 143 -- 144 K [...] hours. Invalid input(s): LDLCALCU INR: Recent Labs 07/20/19 0648 07/21/19 0339 07/22/19 0409 INR 1.1 1.2 1.2 Objective: Vitals: BP [...] of the P2 segment of the right APPLICATIONS ENGINEER. Additional 80% focal stenosis along the P2 segments of the bilateral it project lead. 40% stenosis at the origins of the [...] 7:25 AM by: Kanwal Michel MD Attending Senior Quality Control Technician Addendum: I have reviewed and performed the [...] have any questions. Cole Arteaga DO, FAC, [facility] Courseware Developer [facility] * Gee Hernandez RN - 07/21/2019 10:59 AM EST Patient purposely removed flexiflo at this time. Patient reports that she does not want the flexiflo or continued tube feedings. Patient refused NG or flexiflo replacement at this time. Education to aspiration risk and NPO status in relation to choking concern reviewed with the patient. Patient verbalized understanding of this during this encounter. Luda Valenzuela MD - 07/21/2019 10:58 AM EST Pulmonary critical care progress note. Date and time: 07/21/2019 10:58 AM Patient's name: Eleanor Mcclain Patient's account/billing number: [id number] Patient's Date of : 1950 Age: 68 [...] chloride 250 mL infusion 18 Units/kg/hr (07/21/19 0719) dextrose PRN Meds: QUEtiapine, 25 mg, Nightly [...] Yes ABG Lab Results Component Value Date [id number] 07/19/2019 FIO2 40.0 07/19/2019 Laboratory findings: Complete [...] of the P2 segment of the right APPLICATIONS ENGINEER. Additional 80% focal stenosis along the P2 segments of the bilateral it project lead. 40% stenosis at the origins of the [...] of the P2 segment of the right APPLICATIONS ENGINEER. Additional 80% focal stenosis along the P2 segments of the bilateral it project lead. 40% stenosis at the origins of the [...] of the P2 segment of the right APPLICATIONS ENGINEER. Additional 80% focal stenosis along the P2 segments of the bilateral it project lead. 40% stenosis at the origins of the [...] this chart was generated using voice recognition [employer] dictation software. Although every effort was made to ensure the accuracy of this automated transportation attendant, some errors in transportation attendant may have occurred. Luda Thapa M.D. Pulmonary and critical care attending [facility]) 07/21/2019, 10:58 AM Associated attestation - Jaimee Arellano DO - 07/21/2019 10:10 PM EST Attending Physician Statement I have discussed the care of Eleanor Mcclain, including pertinent history and exam findings, withthe pulmonary critical care fellow/resident/TAIL BOARD WORKER. I have seen and examined the patient and the mendoza elements of all parts of the encounter have been performed by me. I agree with the assessment, plan and orders as documented by the fellow/resident/TAIL BOARD WORKER. Earlier on rounds. Up in chair, slowly [...] MPV 10.5 10.2 10.0 BMP: Recent Labs 07/19/193 07/20/19 0648 07/21/19 0339 NA 137 142 143 K 5.0 4.5 4.4 CL 99 101 103 CO2 25 25 26 BUN 44* 51* 57* CREATININE 1.67* 1.70* 1.74* GLUCOSE 252* 174* 184* CALCIUM 8.7 8.7 9.0 PHOSPHORUS: Recent Labs 07/20/19 0648 PHOS 5.4* MAGNESIUM: Recent Labs 07/19/19 0413 07/20/19 0648 07/21/19 0339 MG 2.5 2.8* 3.1* [...] hesitate to call with questions. * Cole Arteaga DO - 07/21/2019 6:18 AM EST [employer]ra Courseware Developer Progress Note Date: 07/21/2019 Patient name: Eleanor [...] Units/kg/hr (07/20/19 1544) dextrose CBC: Recent Labs 07/19/19 0413 07/20/19 0648 07/21/19 0339 WBC 19.4* 23.1* 15.1* HGB 8.3* 8.6* 8.5* PLT 244 370 287 BMP: Recent Labs 07/19/19 0413 07/20/19 0648 07/21/19 0339 NA 137 142 143 [...] hours. Invalid input(s): LDLCALCU INR: Recent Labs 07/19/19 0413 07/20/19 0648 07/21/19 0339 INR 1.1 1.1 1.2 Objective: Vitals: BP [...] of the P2 segment of the right APPLICATIONS ENGINEER. Additional 80% focal stenosis along the P2 segments of the bilateral it project lead. 40% stenosis at the origins of the [...] 6:18 AM by: Kanwal Michel MD Attending Senior Quality Control Technician Addendum: I have reviewed and performed the [...] have any questions. Cole Arteaga DO, FAC, [facility] Courseware Developer [facility] * Meseret ArechigaMARICRUZ - TAIL BOARD WORKER - 07/20/2019 1:37 PM EST Daily Progress Note Neuro Critical Care Patient Name: Eleanor Mcclain Patient : 1950 Room/Bed: [address] [place] [address] Code Status: FULL Allergies: Allergies Allergen Reactions [...] occlusion left A1 MONSTER, 90% stenosis R APPLICATIONS ENGINEER. Results of imaging reviewed at length with [...] of the P2 segment of the right APPLICATIONS ENGINEER. Additional 80% focal stenosis along the P2 segments of the bilateral it project lead. 40% stenosis at the origins of the [...] of the P2 segment of the right APPLICATIONS ENGINEER. Additional 80% focal stenosis along the P2 segments of the bilateral it project lead. 40% stenosis at the origins of the [...] of the P2 segment of the right APPLICATIONS ENGINEER. Additional 80% focal stenosis along the P2 segments of the bilateral it project lead. 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 For any changes in exam or patient status please contact Neuro Critical Care. Meseret Arechiga APRN - TAIL BOARD WORKER Neuro Critical Care Pager [phone] 07/20/2019 1:37 PM Associated attestation - Wilder [...] both lower extremities, leftupper extremity has weak trash man difficulty with antigravity Recommend therapy evaluations and [...] Patient's name: Eleanor Mcclain Patient's account/billing number: [id number] Patient's Date of : 1950 Age: 68 [...] Yes ABG Lab Results Component Value Date [id number] 29 07/19/2019 FIO2 40.0 07/19/2019 Laboratory findings: Complete Blood Count: Recent Labs 07/18/1943007/19/19 0413 07/20/19 0648 WBC 21.3* 19.4* 23.1* HGB 8.4* 8.3* 8.6* HCT 26.3* 26.6* 27.8* PLT 246 244 370 Last 3 Blood Glucose: Recent Labs 07/18/19 04307/19/19 0413 07/20/19 0648 GLUCOSE 190* 252* 174* [...] of the P2 segment of the right APPLICATIONS ENGINEER. Additional 80% focal stenosis along the P2 segments of the bilateral it project lead. 40% stenosis at the origins of the [...] of the P2 segment of the right APPLICATIONS ENGINEER. Additional 80% focal stenosis along the P2 segments of the bilateral it project lead. 40% stenosis at the origins of the [...] of the P2 segment of the right APPLICATIONS ENGINEER. Additional 80% focal stenosis along the P2 segments of the bilateral it project lead. 40% stenosis at the origins of the [...] this chart was generated using voice recognition [employer] dictation software. Although every effort was made to ensure the accuracy of this automated transportation attendant, some errors in transportation attendant may have occurred. Manpreet Treadwell M.D. Pulmonary and critical care attending [facility]) 07/20/2019, 1:27 PM Attending Physician Statement I [...] this chart was generated using voice recognition [employer] dictation software. Although every effort was made to ensure the accuracy of this automated transportation attendant, some errors in transportation attendant may have occurred. * Brynn Louie RN - 07/20/2019 1:04 PM EST flexiflow attempted putting flexiflow on ice will attempt again in 15 minutes * Loraine Mary RD, LD - 07/20/2019 12:14 PM EST Nutrition Assessment (Enteral Nutrition) Type and Reason for Visit: Reassess Nutrition Recommendations: -Continue NPO status per GLASS ROBOT OPERATOR rec's -Restart tube feeding as able of [...] Fluid Accumulation-Mild fluid accumulation, Extremities, Generalized 6. Director Of Front Office Strength-Not measured Nutrition Risk Level: High Nutrition Needs: Estimated Daily Total Kcal: 1.2-1.4 ~>4084-4945 kcals/d Estimated Daily Protein (g): 1.2-1.4 gm/kg [...] 36 lb wt gain x 1 wk [place] Body Wt: 110 lb 3.7 oz (50 kg), % [place] Body 159% adm/ideal BMI Classification: BMI 25.0 [...] Bowel Function Contact Number: [phone] * Lita Mancini CREATIVE SERVICES COORDINATOR - 07/20/2019 11:49 AM EST Physical Therapy Facility/Department: [facility] 1 Daily Treatment Note NAME: Eleanor Mcclain [...] Ambulation Assistance: Independent Transfer Assistance: Independent Active Assigner: Yes Mode of Transportation: Car 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[employer]) Additional Comments: Pt answered [...] 2/5 Plan Plan Times per week: 5x AM-PAC Score AM-PAC Inpatient Daily Activity Raw Score: 11 (07/20/19 1058) AM-PAC Inpatient ADL T-Scale Score : 29.04 (07/20/19 105) ADL Inpatient CMS 0-100% Score: 70.42 (07/20/19 105) ADL Inpatient CMS G-Code Modifier : CL (07/20/191057) Goals Short [...] Individual Concurrent Group Co-treatment Time In 09 Time Out 0944 Minutes 24 co tx with PT Timed Code Treatment Minutes: 8 Minutes Ambika Sigala OTR/L * Nicole Garcia SLP - 07/20/2019 9:49 AM EST Speech Language Pathology Facility/Department: [place] [address] Initial Speech/Language/Cognitive Assessment NAME: Eleanor Mcclain : [...] noted deficits. Verbal education provided. Recommendations: Requires GLASS ROBOT OPERATOR Intervention: Yes Duration/Frequency of Treatment: 3-5x per [...] MD - 07/20/2019 9:41 AM EST [employer]ra Courseware Developer Progress Note Date: 07/20/2019 Patient name: Eleanor [...] Stopped (07/19/19 1417) dextrose CBC: Recent Labs 07/18/19 04307/19/193 07/20/19 0648 WBC 21.3* 19.4* 23.1* HGB 8.4* 8.3* 8.6* PLT 246 244 370 BMP: Recent Labs 07/18/19 0431 07/19/19 0413 07/20/19 0648 NA 138 137 142 [...] hours. Invalid input(s): LDLCALCU INR: Recent Labs 07/18/19 0431 07/19/19 0413 07/20/19 0648 INR 1.1 1.1 1.1 [...] of the P2 segment of the right APPLICATIONS ENGINEER. Additional 80% focal stenosis along the P2 segments of the bilateral it project lead. 40% stenosis at the origins of the [...] 21MM INTUITY VALVE 07/03/2019 and CABG - CAPMBELL-LAD, SVG- OM2, SVG- PVL 2. Post-op bleeding [...] by: Nuha Coronel MD Fellow, Cardiovascular Diseases [facility] Attending Physician Statement I have discussed the [...] swallow study Janusz Stein MD * Nicole Garcia, MIKHAIL - 07/20/2019 9:36 AM EST Speech Language Pathology Facility/Department: [facility] 1 CLINICAL BEDSIDE SWALLOW EVALUATION NAME: Eleanor [...] tolerate any PO safely Treatment Plan Requires GLASS ROBOT OPERATOR Intervention: Yes Duration/Frequency of Treatment: 1-2x per [...] Patient Education Response: Verbalizes understanding Therapy Time GLASS ROBOT OPERATOR Individual Minutes Time In: 0900 Time Out: [...] % solution, PRN LABS CBC: Recent Labs 07/18/1943007/19/1941207/20/19 0648 WBC 21.3* 19.4* 23.1* RBC 2.86* 2.89* 2.96* HGB 8.4* 8.3* 8.6* HCT 26.3* 26.6* 27.8* MCV 92.0 92.0 93.9 MCH 29.4 28.7 29.1 MCHC 31.9 31.2 30.9 RDW 15.9* 15.9* 16.2* PLT 246 244 370 MPV 10.6 10.5 10.2 BMP: Recent Labs 07/18/19 04307/19/19 0413 07/20/19 0648 NA 138 137 142 K 4.0 5.0 4.5 CL 97* 99 101 CO2 25 25 25 BUN 34* 44* 51* CREATININE 1.68* 1.67* 1.70* GLUCOSE 190* 252* 174* CALCIUM 8.8 8.7 8.7 PHOSPHORUS: Recent Labs 07/18/19 04307/20/19 0648 PHOS 4.8* 5.4* MAGNESIUM: Recent Labs 07/18/1907/19/20 0413 07/20/19 0648 MG 2.3 2.5 2.8* [...] 8:40 AM EST [facility] - Progress Note Today's Date and Time: [...] effusion> Will D/C Unasyn Infection Control Recommendations [place] Precautions Antimicrobial Stewardship Recommendations Discontinuation of therapy [...] Chronic kidney disease CVA (cerebral vascular accident) ([facility]) 2011 no deficits Diabetes mellitus ([facility]) Dr. Richards Hyperlipidemia Hypertension Dr. Richards Kidney [...] LOVE performed by Caro Teresa MD at [facility] CVOR CARDIAC CATHETERIZATION Bilateral 06/06/2019 Possible bypass & aortic valve replacement CHOLECYSTECTOMY COLONOSCOPY CORONARY ARTERY BYPASS GRAFT N/A 07/03/2019 CABG CORONARY ARTERY BYPASS REDO performed by Caro Teresa MD at [facility] CVMO GALLBLADDER SURGERY HC PICC POWERPICC DOUBLE 07/13/2019 HYSTERECTOMY STERNUM DEBRIDEMENT N/A 07/04/2019 STERNUM WASHOUT WITH STERNUM CLOSURE WITH STERNALOCK 360, 12 SELF-DRILLING LOCKING SCREWS 12MM, 4 SELFDRILLING LOCKING SCREWS 14MM. performed by Caro Teresa MD at [facility] CVMO Medications: amLODIPine 5 mg Oral Daily bumetanide [...] file Gets together: Not on file Attends worship service: Not on file Active member of [...] or atelectasis. 3. Interval extubation. Medical Decision Ujlfay-Feegbxjf-Iohbp: 07/17/2019 10:16 AM - [place] jackie Incoming Lab Results From [facility] Specimen Information: Sputum, Suctioned Component Collected Lab Specimen Description 07/15/2019 11:48 AM [facility] - [place] .SUCTIONED SPUTUM Special Requests 07/15/2019 11:48 AM [facility] - [facility] NOT REPORTED Direct Exam 07/15/2019 11:48 AM [facility] - [facility] < 10 EPITHELIAL CELLS/LPF Direct Exam 07/15/2019 11:48 AM [facility] - [place] >25 NEUTROPHILS/LPF Direct Exam Abnormal 07/15/2019 11:48 AM [facility] PREDOMINANT ORGANISM: GRAM NEGATIVE RODS Direct Exam Abnormal 07/15/2019 11:48 AM [facility] MIXED BACTERIAL MORPHOTYPES ALSO PRESENT ON GRAM STAIN. Culture Abnormal 07/15/2019 11:48 AM [facility] - [facility] YEAST, NOT SILVIO ALBICANS OR SILVIO DUBLINIENSIS HEAVY GROWTH Culture 07/15/2019 11:48 AM [facility] NORMAL RESPIRATORY ROSEANNA SCANT GOWTH 07/16/2019 8:17 AM - [place], jackie Incoming Lab Results From [facility] Specimen Information: Blood Component Collected Lab Specimen Description 07/15/2019 1:54 PM [facility] - [facility] .BLOOD Special Requests 07/15/2019 1:54 PM [facility] L ARM 10 CC Culture 07/15/2019 1:54 PM [facility] - [facility] NO GROWTH 17 HOURS 07/13/2019 1:00 PM - Kip Briggs Incoming Lab Results From [facility] Specimen Information: Tracheal Aspirate Component Collected Lab [...] data were reviewed Discussed with nursing Staff, urban planner Infection Control and Prevention measures reviewed [...] Hyde MD. Pager: - Office: * Vasiliy Garcia APRN - [place] - 07/20/2019 7:45 AM EST [facility] Daily Progress Note Surgeon: [...] (07/20/19 0943) dextrose Data: CBC: Recent Labs 07/18/19 04307/19/1941207/20/19 0648 WBC 21.3* 19.4* 23.1* HGB 8.4* 8.3* 8.6* HCT 26.3* 26.6* 27.8* MCV 92.0 92.0 93.9 PLT 246 244 370 BMP: Recent Labs 07/18/19 04307/19/1941207/20/19 0648 NA 138 137 142 K 4.0 5.0 4.5 CL 97* 99 101 CO2 25 25 25 PHOS 4.8* -- 5.4* BUN 34* 44* 51* CREATININE 1.68* 1.67* 1.70* PT/INR: Recent Labs 07/18/1943007/19/1941207/20/19 0648 PROTIME 11.3 11.1 11.7 INR 1.1 [...] cardiothoracic surgery group today. VASILIY GARCIA APRN, TAIL BOARD WORKER * Wilder Rosales MD - 07/19/2019 4:44 PM EST Daily Progress Note Neuro Critical Care Patient Name: Eleanor Mcclain Patient : 1950 Room[facility]Bed: [facility]-01 Code Status: Full Allergies: Allergies Allergen Reactions [...] was noted to have seizure-like activity per corporate staff accountant. She was loaded with Keppra and started [...] occlusion left A1 MONSTER, 90% stenosis R APPLICATIONS ENGINEER. 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 Opening eyes, nodding appropriately, squeezing hands, can take in deep TVs on command, good RSBI and good cuff leak. Steroids can be stopped. SBT trial continued. Patient extubated later this afternoon. We'll assess stroke deficits and neuro exam post extubation. Avoid any PRN fentanyl or Benzos. Satnam Rosales MD * Janis Carnes RN - 07/19/2019 2:[address] Burger at bedside to assess pt, orders to extubate * Vasiliy Garcia, MARICRUZ - BOOKMOBILE LIBRARIAN - 07/19/2019 1:47 PM EST [facility] Daily Progress Note Surgeon:Dr. [...] (07/19/19 1201) dextrose Data: CBC: Recent Labs 07/17/1945507/18/1943007/19/19412 WBC 19.2* 21.3* 19.4* HGB 7.8* 8.4* 8.3* HCT 24.1* 26.3* 26.6* MCV 90.6 92.0 92.0 PLT 216 246 244 BMP: Recent Labs 07/17/1945507/18/1943007/19/19412 NA 137 138 137 K 4.1 4.0 5.0 CL 99 97* 99 CO2 25 25 25 PHOS -- 4.8* -- BUN 33* 34* 44* CREATININE 1.34* 1.68* 1.67* PT/INR: Recent Labs 07/17/1945507/18/1943007/19/19 041 PROTIME 11.4 11.3 11.1 INR 1.1 1.1 1.1 APTT: Recent Labs 07/18/19 04307/19/19 04107/19/19 1145 APTT 54.1* 77.1* 60.0* I/O: I/O [...] cardiothoracic surgery group today. VASILIY GARCIA APRN, TAIL BOARD WORKER * Janusz Stein MD - 07/19/2019 11:07 AM EST [employer] Courseware Developer Progress Note Date: 07/19/2019 Patient name: Eleanor [...] Units/kg/hr (07/19/19 0528) dexmedetomidine (PRECEDEX) IV infusion 0.04 mcg/kg/hr (07/19/19 1030) dextrose CBC: Recent Labs 07/17/19 0456 07/18/19 0431 07/19/19 0413 WBC 19.2* 21.3* 19.4* HGB 7.8* 8.4* 8.3* PLT 216 246 244 BMP: Recent Labs 07/17/19 0456 07/18/19 0431 07/19/19 [...] hours. Invalid input(s): LDLCALCU INR: Recent Labs 07/17/19 0456 07/18/19 0431 07/19/19 0413 INR 1.1 1.1 1.1 Objective: Vitals: BP [...] of the P2 segment of the right APPLICATIONS ENGINEER. Additional 80% focal stenosis along the P2 segments of the bilateral it project lead. 40% stenosis at the origins of the [...] by: Nuha Coronel MD Fellow, Cardiovascular Diseases [facility] Attending Physician Statement I have discussed the [...] % solution, PRN LABS CBC: Recent Labs 07/17/19 0456 07/18/19 0431 07/19/19 0413 WBC 19.2* 21.3* 19.4* RBC 2.66* 2.86* 2.89* HGB 7.8* 8.4* 8.3* HCT 24.1* 26.3* 26.6* MCV 90.6 92.0 92.0 MCH 29.3 29.4 28.7 MCHC 32.4 31.9 31.2 RDW 15.4* 15.9* 15.9* PLT 216 246 244 MPV 10.5 10.6 10.5 BMP: Recent Labs 07/17/19 0456 07/18/19 0431 07/19/19 [...] Patient's name: Eleanor Mcclain Patient's account/billing number: [id number] Patient's Date of : 1950 Age: 68 [...] chloride 250 mL infusion 18 Units/kg/hr (07/19/19 05) dexmedetomidine (PRECEDEX) IV infusion 0.6 mcg/kg/hr (07/19/19 [...] Yes ABG Lab Results Component Value Date [id number] 29 07/19/2019 FIO2 40.0 07/19/2019 Laboratory findings: [...] 5.0 CL 99 97* 99 CO2 25 BUN 33* 34* 44* CREATININE 1.34* [...] of the P2 segment of the right APPLICATIONS ENGINEER. Additional 80% focal stenosis along the P2 segments of the bilateral it project lead. 40% stenosis at the origins of the [...] of the P2 segment of the right APPLICATIONS ENGINEER. Additional 80% focal stenosis along the P2 segments of the bilateral it project lead. 40% stenosis at the origins of the [...] of the P2 segment of the right APPLICATIONS ENGINEER. Additional 80% focal stenosis along the P2 segments of the bilateral it project lead. 40% stenosis at the origins of the [...] this chart was generated using voice recognition [employer] dictation software. Although every effort was made to ensure the accuracy of this automated transportation attendant, some errors in transportation attendant may have occurred. Manpreet Treadwell M.D. Pulmonary and critical care attending [facility]) 07/19/2019, 9:39 AM Attending Physician Statement I [...] this chart was generated using voice recognition [employer] dictation software. Although every effort was made to ensure the accuracy of this automated transportation attendant, some errors in transportation attendant may have occurred. * Lita Mancini, CREATIVE SERVICES COORDINATOR - 07/19/2019 9:36 AM EST Physical Therapy [...] 8:45 AM EST [facility] - Progress Note Today's Date and Time: [...] adjusted for renal failure Infection Control Recommendations [place] Precautions Antimicrobial Stewardship Recommendations Discontinuation of therapy [...] Plat: 305->263->219->218->216->246->244 Vit B12: 1313 Cultures: Urine: 07-03 no [...] Chronic kidney disease CVA (cerebral vascular accident) ([facility]) 2011 no deficits Diabetes mellitus ([facility]) Dr. Richards Hyperlipidemia Hypertension Dr. Richards Kidney [...] LOVE performed by Caro Teresa MD at [facility] CVOR CARDIAC CATHETERIZATION Bilateral 06/06/2019 Possible bypass & aortic valve replacement CHOLECYSTECTOMY COLONOSCOPY CORONARY ARTERY BYPASS GRAFT N/A 07/03/2019 CABG CORONARY ARTERY BYPASS REDO performed by Caro Teresa MD at [facility] CVOR GALLBLADDER SURGERY HC PICC POWERPICC DOUBLE 07/13/2019 HYSTERECTOMY STERNUM DEBRIDEMENT N/A 07/04/2019 STERNUM WASHOUT WITH STERNUM CLOSURE WITH STERNALOCK 360, 12 SELF-DRILLING LOCKING SCREWS 12MM, 4 SELFDRILLING LOCKING SCREWS 14MM. performed by Caro Teresa MD at [facility] CVOR Medications: bumetanide 1 mg Intravenous BID dexamethasone [...] file Gets together: Not on file Attends worship service: Not on file Active member of [...] following labs: CBC with Differential: Recent Labs 07/18/19 0431 07/19/19 0413 WBC 21.3* 19.4* HGB 8.4* 8.3* HCT 26.3* 26.6* PLT 246 244 BMP: Recent Labs 07/18/19 0431 07/19/19 0413 NA 138 137 K 4.0 5.0 CL [...] Pulmonary edema. Small left effusion. Medical Decision Rlpfcs-Bnlcnyxt-Xpmqw: 07/17/2019 10:16 AM - [place], [place] Incoming Lab Results From [facility] Specimen Information: Sputum, Suctioned Component Collected Lab Specimen Description 07/15/2019 11:48 AM [facility] .SUCTIONED SPUTUM Special Requests 07/15/2019 11:48 AM [facility] NOT REPORTED Direct Exam 07/15/2019 11:48 AM [...] - [place], pn Incoming Lab Results From [facility] Specimen Information: Blood Component Collected Lab Specimen Description 07/15/2019 1:54 PM [facility] .BLOOD Special Requests 07/15/2019 1:54 PM [facility] L ARM 10 CC Culture 07/15/2019 1:54 PM [facility] NO GROWTH 17 HOURS 07/13/2019 1:00 PM - [place], [place]pn Incoming Lab Results From [facility] Specimen Information: Tracheal Aspirate Component Collected Lab [...] data were reviewed Discussed with nursing Staff, urban planner Infection Control and Prevention measures reviewed [...] tube at 53, charted at 75 per bottle capping machine operator, air bolus heard, will have kub done to double check placement. Tube feed held for now * Donovan Mena MD - 07/18/2019 4:03 PM EST Pulmonary critical care progress note. Date and time: 07/18/2019 4:03 PM Patient's name: Eleanor Mcclain Patient's account/billing number: [id number] Patient's Date of : 1950 Age: 68 [...] Yes ABG Lab Results Component Value Date BIH5JAR 29 07/18/2019 FIO2 40.0 07/18/2019 Laboratory findings: [...] of the P2 segment of the right APPLICATIONS ENGINEER. Additional 80% focal stenosis along the P2 segments of the bilateral it project lead. 40% stenosis at the origins of the [...] of the P2 segment of the right APPLICATIONS ENGINEER. Additional 80% focal stenosis along the P2 segments of the bilateral it project lead. 40% stenosis at the origins of the [...] of the P2 segment of the right APPLICATIONS ENGINEER. Additional 80% focal stenosis along the P2 segments of the bilateral it project lead. 40% stenosis at the origins of the [...] this chart was generated using voice recognition Dragon dictation software. Although every effort was made to ensure the accuracy of this automated transportation attendant, some errors in transportation attendant may have occurred. Manpreet Treadwell M.D. Pulmonary and critical care attending [facility]) 07/18/2019, 4:03 PM Attending Physician Statement I [...] this chart was generated using voice recognition Dragon dictation software. Although every effort was made to ensure the accuracy of this automated transportation attendant, some errors in transportation attendant may have occurred. * Alondra Vincent RN - 07/18/2019 12:[address] rosales (neuro) and Meseret MASSEY (neuro-crit care) and Diego MASSEY rounded on patient. Patient followedsome commands for neuro not all. Checked cuff leak and no cuff leak, want to start steroids and seroquel Diego BOOKMOBILE LIBRARIAN will confirm with Dr. Teresa if ok. [...] 9:15 AM EST [facility] - Progress Note Today's Date and Time: [...] adjusted for renal failure Infection Control Recommendations [place] Precautions Antimicrobial Stewardship Recommendations Discontinuation of therapy [...] Plat: 305->263->219->218->216->246 Vit B12: 1313 Cultures: Urine: 2 no growth Blood: - 07-11: no growth [...] Chronic kidney disease CVA (cerebral vascular accident) ([facility]) 2011 no deficits Diabetes mellitus ([facility]) Dr. Richards Hyperlipidemia Hypertension Dr. Richards Kidney [...] LOVE performed by Caro Teresa MD at [facility] CVOR CARDIAC CATHETERIZATION Bilateral 06/06/2019 Possible bypass & aortic valve replacement CHOLECYSTECTOMY COLONOSCOPY CORONARY ARTERY BYPASS GRAFT N/A 07/03/2019 CABG CORONARY ARTERY BYPASS REDO performed by Caro Teresa MD at [facility] CVMO GALLBLADDER SURGERY HC PICC POWERPICC DOUBLE 07/13/2019 HYSTERECTOMY STERNUM DEBRIDEMENT N/A 07/04/2019 STERNUM WASHOUT WITH STERNUM CLOSURE WITH STERNALOCK 360, 12 SELF-DRILLING LOCKING SCREWS 12MM, 4 SELFDRILLING LOCKING SCREWS 14MM. performed by Caro Teresa MD at [facility] Medications: bumetanide 1 mg Intravenous BID insulin [...] file Gets together: Not on file Attends worship service: Not on file Active member of [...] following labs: CBC with Differential: Recent Labs 07/17/1945507/18/19 043 WBC 19.2* 21.3* HGB 7.8* 8.4* HCT 24.1* 26.3* PLT 216 246 BMP: Recent Labs 07/17/19 0456 07/18/19 043 NA 137 138 K 4.1 4.0 CL [...] Pulmonary edema. Small left effusion. Medical Decision Ohqapn-Vaibnnyx-Hxkzg: 07/17/2019 10:16 AM - [place], [place] Incoming Lab Results From [facility] Specimen Information: Sputum, Suctioned Component Collected Lab Specimen Description 07/15/2019 11:48 AM [facility] .SUCTIONED SPUTUM Special Requests 07/15/2019 11:48 AM [facility] NOT REPORTED Direct Exam 07/15/2019 11:48 AM [facility] < 10 EPITHELIAL CELLS/LPF Direct Exam 07/15/2019 11:48 AM [facility] >25 NEUTROPHILS/LPF Direct Exam Abnormal 07/15/2019 11:48 AM [facility] PREDOMINANT ORGANISM: GRAM NEGATIVE RODS Direct Exam Abnormal 07/15/2019 11:48 AM [facility] MIXED BACTERIAL MORPHOTYPES ALSO PRESENT ON GRAM STAIN. Culture Abnormal 07/15/2019 11:48 AM [facility] YEAST, NOT SILVIO ALBICANS OR SILVIO DUBLINIENSIS HEAVY GROWTH Culture 07/15/2019 11:48 AM [facility] NORMAL RESPIRATORY ROSEANNA SCANT GOWTH 07/16/2019 8:17 AM - [place], p[place] Incoming Lab Results From [facility] Specimen Information: Blood Component Collected Lab Specimen Description 07/15/2019 1:54 PM [facility] .BLOOD Special Requests 07/15/2019 1:54 PM [facility] L ARM 10 CC Culture 07/15/2019 1:54 PM [facility] NO GROWTH 17 HOURS 07/13/2019 1:00 PM - [place] Incoming Lab Results From [facility] Specimen Information: Tracheal Aspirate Component Collected Lab [...] data were reviewed Discussed with nursing Staff, urban planner Infection Control and Prevention measures reviewed [...] PRN LABS CBC: Recent Labs 07/16/19 0502 07/17/1945507/18/19 043 WBC 19.4* 19.2* 21.3* RBC 2.49* 2.66* 2.86* HGB 7.0* 7.8* 8.4* HCT 22.7* 24.1* 26.3* MCV 91.2 90.6 92.0 MCH 28.1 29.3 29.4 MCHC 30.8 32.4 31.9 RDW 14.9* 15.4* 15.9* PLT 218 216 246 MPV 10.1 10.5 10.6 BMP: Recent Labs 07/16/19 05007/17/19 0456 07/18/19 043 NA 139 137 138 K 3.9 4.1 4.0 CL 99 99 97* CO2 26 25 25 BUN 26* 33* 34* CREATININE 1.26* 1.34* 1.68* GLUCOSE 259* 234* 190* CALCIUM 8.4* 8.5* 8.8 PHOSPHORUS: Recent Labs 07/16/19 05007/18/19 0431 PHOS 3.0 4.8* MAGNESIUM: Recent Labs [...] give aldactone. Alondra Vincent RN * Meseret Arechiga APRN - KATIE - 07/18/2019 8:33 AM EST Daily Progress Note Neuro Critical Care Patient Name: Eleanor Mcclain Patient : 1950 Room/Bed: [facility]6/1006-01 Code Status: FULL Allergies: Allergies Allergen Reactions [...] occlusion left A1 MONSTER, 90% stenosis R APPLICATIONS ENGINEER. Results of imaging reviewed at length with [...] chloride 250 mL infusion 20 Units/kg/hr (07/18/19 7837) dexmedetomidine (PRECEDEX) IV infusion 0.5 mcg/kg/hr (07/18/19 0522) dextrose PRN MEDICATIONS: bumetanide, midazolam, labetalol, hydrALAZINE, [...] of the P2 segment of the right APPLICATIONS ENGINEER. Additional 80% focal stenosis along the P2 segments of the bilateral it project lead. 40% stenosis at the origins of the [...] of the P2 segment of the right APPLICATIONS ENGINEER. Additional 80% focal stenosis along the P2 segments of the bilateral it project lead. 40% stenosis at the origins of the [...] of the P2 segment of the right APPLICATIONS ENGINEER. Additional 80% focal stenosis along the P2 segments of the bilateral it project lead. 40% stenosis at the origins of the [...] Neuro Critical Care. Meseret Arechiga APRN - [facility] Neuro Critical Care Pager [phone] 07/18/2019 8:33 AM Associated attestation - Wilder [...] give amio despite patient HR 50's. * Neema Vasiliy SanabriaMARICRUZ - BOOKMOBILE LIBRARIAN - 07/18/2019 7:56 AM EST [facility] Daily Progress Note Surgeon: [...] sodium chloride 250 mL infusion 20 Units/kg/hr (07/18/1932) dexmedetomidine (PRECEDEX) IV infusion 0.5 mcg/kg/hr (07/18/1934) dextrose Data: CBC: Recent Labs 07/16/19 0502 07/17/1945507/18/19430 WBC 19.4* 19.2* 21.3* HGB 7.0* 7.8* 8.4* HCT 22.7* 24.1* 26.3* MCV 91.2 90.6 92.0 PLT 218 216 246 BMP: Recent Labs 07/16/19 0502 07/17/1945507/18/19 043 NA 139 137 138 K 3.9 4.1 4.0 CL 99 99 97* CO2 26 25 25 PHOS 3.0 -- 4.8* BUN 26* 33* 34* CREATININE 1.26* 1.34* 1.68* PT/INR: Recent Labs 07/16/19 0502 07/17/196 07/18/19 043 PROTIME 11.9 11.4 11.3 INR 1.1 1.1 [...] cardiothoracic surgery group today. VASILIY GARCIA APRN, TAIL BOARD WORKER * Janusz Stein MD - 07/18/2019 7:39 AM EST [employer] Course[employer] Developer Progress Note Date: 07/18/2019 Patient name: Eleanor Mcclain Date of admission: 07/03/2019 5:13 AM Date of : 1950 PCP: Grayson Hernandez MD Reason for Admission: CAD, multiple vessel [I25.10] Subjective: Patient seen and examined. Patient remains intubated and not following commands I/O last 3 completed shifts: In: 1776.7 [I.V.:583.7; NG/GT:1193] Out: 2084 [Urine:2084] No intake/output data recorded. In: 1776.7 [I.V.:583.7; [...] 0534) dextrose CBC: Recent Labs 07/16/19 0502 07/17/19 0456 07/18/19 0431 WBC 19.4* 19.2* 21.3* HGB 7.0* 7.8* 8.4* PLT 218 216 246 BMP: Recent Labs 07/16/19 0502 07/17/19 0456 07/18/19 0431 NA 139 137 138 K 3.9 4.1 4.0 CL 99 99 97* CO2 25 25 BUN 26* 33* 34* CREATININE [...] of the P2 segment of the right APPLICATIONS ENGINEER. Additional 80% focal stenosis along the P2 segments of the bilateral it project lead. 40% stenosis at the origins of the [...] by: Nuha Coronel MD Fellow, Cardiovascular Diseases [facility] Attending Physician Statement I have discussed the [...] Fluid Accumulation-Mild fluid accumulation, Extremities, Generalized 6. Director Of Front Office Strength-Not measured Nutrition Risk Level: High Nutrition Needs: Estimated Daily Total Kcal: 20-25 ~>9714-8214 kcals/d Estimated Daily Protein (g): 1.2-2.0 gm/kg [...] 36 lb wt gain x 1 wk [place] Body Wt: 110 lb 3.7 oz (50 kg), % [place] Body 159% adm/ideal BMI Classification: BMI 25.0 [...] Monitor Bowel Function Contact Number: [phone] * Sana Gonsalez RCP - 07/17/2019 11:25 [...] 10.6 10.1 10.5 BMP: Recent Labs 07/15/19 17007/16/19 0502 07/17/19 0456 NA 137 139 137 [...] d63.1 e11.22 n18.4 No vember 2023 12:25pm Chief Complaint Admit Date Renal 6 month f/u October 16, 2024 1:55p m Reason for Visit Admit Date Anemia of renal disease October 16, 2024 1 :55pm Asymptomatic bacteriuria October 16, 2024 1:55pm CKD (chronic kidney disease) stage 4, GF R 15-29 ml/min October 16, 2024 1:55pm Hyperlipidemia October 16, 2024 1:55p m Hypertensive chronic kidney disease with stage 1 through stage 4 chronic ki October 16, 2024 1:55pm Secondary hyperparathyroidism October 16, 2024 1:55pm Type 2 diabetes mellitus with diabetic c hronic kidney disease October 16, 2024 1:55pm Additional Source Comments Reason for Visit (unrecogniz ed section and content) Status Reason Specialty Diagnoses / Procedures Referre d By Contact Referred To Contact Diagnoses NEED DIAGNOSIS Procedures LEFT AND RIGHT HEART CATH Status Reason Specialty Diagnoses / Procedures Referre d By Contact Referred To Contact Closed Diagnoses CAD, multiple vessel Pre-op testing Procedures Echocardiogram transthoracic Echocardiogram transthoracic 3-V-PFIY-LMT Vasiliy Garcia APRN - NP [address] [address] Vasiliy Garcia APRN - NP [address] [address] Status Reason Specialty Diagnoses / Procedures Referre d By Contact Referred To Contact Closed Diagnoses CAD, multiple vessel Pre-op testing Procedures VL Vein Mapping Lower Bilateral VL Vein Mapping Lower Bilateral HCHG DUPLEX EXTREM VENOUS,BILAT Vasiliy Garcia APRN - NP [address] [place] [address] Vasiliy Garcia APRN - BOOKMOBILE LIBRARIAN [address] [place] [address] Status Reason Specialty Diagnoses / Procedures Referre d By Contact Referred To Contact Closed Radiology Diagnoses CAD, multiple vessel Pre-op testing Procedures CT Chest WO Contrast CT Chest WO Contrast HC CT CHEST W/O CONTRAST Vasiliy Garcia APRN - BOOKMOBILE LIBRARIAN [address] [place] [address] Status Reason Specialty Diagnoses / Procedures Referre d By Contact Referred To Contact Diagnoses 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 Procedures [place] CABG, ARTERY-VEIN, TWO CABG CORONARY ARTERY BYPASS X2; AORTIC VALVE REPLACEMENT, ON PUMP, SWSTEWART GUAMAN, Caro Koch MD [address] [facility] [address] [address] [facility] Status Reason Specialty Diagnoses / Procedures Referred By Contact Referred To Contact Pending Review Vascular Lab Diagnoses CAD, multiple vessel Pre-op testing Bilateral carotid bruits Procedures VL DUP CAROTID BILATERAL VL DUP CAROTID BILATERAL HC EXTRACRANIAL BILAT STUDY Vasiliy Garcia APRN - [place] [address] [facility] [address] [place] [address] [facility] [address] [place] [address] Specialty Diagnoses / Procedures Referred By Contac t Referred To Contact Diagnoses Palpitations Procedures Cardiac event monitor Anshul Irizarry MD [address] [place] [address] Referral ID Status Reason Start Date Expiration Date Visits Re quested Visits Authorized [id number] Closed 09/07/2021 09/07/2022 1 1 Reason Onset Date Comments Med Refill 07/01/2023 Specialty Diagnoses / Procedures Referred By Contac t Referred To Contact Diagnoses Chronic a-fib (HCC) Chronic a-fib (HCC) [I48.20] Procedures KY ECHO TRANSESOPHAG R-T 2D W/PRB IMG ACQUISJ I&R [place] ECHO TRANSESOPHAG R-T 2D W/PRB IMG ACQUISJ I&R Love during cath case Matty Martinez MD [address] [place] [address] [facility] [address] [place] [address] Referral ID Status Reason Start Date Expiration Date Visits Re quested Visits Authorized [id number] 1 1 Specialty Diagnoses / Procedures Referred By Contac t Referred To Contact Diagnoses SOB (shortness of breath) Procedures Nuclear stress test with myocardial perfusion Anshul Irizarry MD [address] [place] [address] Referral ID Status Reason Start Date Expiration Date Visits Re quested Visits Authorized [id number] Closed 09/27/2023 10/28/2023 3 3 Reason Comments Depression Anxiety Sleeping Problem Memory Loss Reason Comments Fall Reason Comments Med Refill Reason Comments Med Change Request Reason Onset Date Comments Med Refill 05/28/2024 Reason Onset Date Comments follow up appointment 05/30/2023 Reason Comments Hypertension Hyperlipidemia Diabetes Reason Onset Date Comments Med Refill 09/03/2024 Reason Comments Follow-up Reason Comments Follow-up Reason Onset Date Comments re: PT Recommendation 10/01/2024 Call Back requested FU 10/01/2024 Home health cont acted. Reason Onset Date Comments Home Health 10/01/2024 Reason Comments Skin Check Tasia Irizarry MD - 06/06/2019 6:16 AM EST H&P Notes (unrecognized sect ion and content) Tasia Irizarry M.D. [facility] [address] [address] May 10, 2019 Grayson Hernandez MD [address] [place], [place] [id number] RE: Eleanor Mcclain : [address] Hernandez: CHIEF COMPLAINT: 1. Severe aortic stenosis. 2. Shortness of breath. 3. Marked fatigue, possibly secondary to aortic stenosis. HISTORY OF PRESENT ILLNESS: Mrs. Mcclain is a pleasant 68-year-old female who has a history of aortic stenosis. In 2016, she had mild aortic stenosis with cnuy-pr-gczjigqi mitral and tricuspid regurgitation, with normal ejection fraction. On 07/12/2017, she had another echocardiogram that showed an EF of 55% with severe dilatation of the left atrium and right atrium, and right ventricle normal. She had moderate aortic stenosis, read on an echocardiogram in [place]. Her last echocardiogram was on 03/30/2019, also at [place]. This showed normal EF of 55% to [...] This was noticed when she went to [facility] in 06/2018 and had difficulty with [...] Long history of depression. 3. She has gic-mkhshts-tyfqjktmn diabetes, which is under good control. 4. [...] his 14-year-old son and ended up in [facility] overnight. He is going through a possible divorce and lives with another woman. It has been very stressful for . They were trying to get temporary custody of their 14-year-old grandson, but the wepweqdk-aq-pam will not do this. The ztdmojud-sx-qdv has filed for divorce from their son. She does not smoke, does not drink alcohol. Her has also retired. They went to [employer] in June and she had difficulty keeping up with the [email or web address] group. She does not exercise. 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 REVIEW OF SYSTEMS: Cardiac as above. Other [...] x-ray was unremarkable. Echocardiogram on 03/30/2019, at [place] demonstrated ejection fraction greater than 50%, with mild dilatation of left atrium. She had normal right-sided chambers, with calcified aortic valve with severe aortic stenosis with an aortic valve area of 0.8 cm2. IMPRESSION: 1. Severe aortic stenosis by an echocardiogram at [place], where it showed an aortic valve area 0.8 cm2. 2. Marked loss of energy and shortness of breath with exertion over the last year but markedly worse in the last several months, probably secondary to symptomatic aortic stenosis. 3. Dzg-wdurrps-nxiqmqbbn diabetes, under good control, with her hemoglobin [...] the last several months. Her echocardiogram in [place] on 03/30/2019 showed aortic stenosis with an [...] on the second week in May in [place]. Risks and benefits have been outlined. Thank you very much for allowing me the privilege of seeing Mrs. Mcclain. If you have any questions on my thoughts, please do not hesitate to contact me. Sincerely, TASIA IRIZARRY documented in this encounter INFORMATION SOURCE (unrecogn ized section and content) DATE CREATED AUTHOR 06/27/2019 [facility] DATE CREATED AUTHOR AUTHOR'S ORGANIZ ATION 02/01/2020 [facility] DATE CREATED AUTHOR AUTHOR'S ORGANIZ ATION 06/23/2021 [facility] DATE CREATED AUTHOR AUTHOR'S ORGANIZ ATION 10/04/2021 [facility]ical Specialist DATE CREATED AUTHOR AUTHOR'S ORGANIZ ATION 07/27/2022 [facility] [place] [facility] DATE CREATED AUTHOR AUTHOR'S ORGANIZ ATION 09/04/2023 [facility] DATE CREATED AUTHOR AUTHOR'S ORGANIZ ATION 04/16/2024 [facility] DATE CREATED AUTHOR AUTHOR'S ORGANIZ ATION 06/01/2024 [facility] DATE CREATED AUTHOR AUTHOR'S ORGANIZ ATION 07/10/2024 [facility] DATE CREATED AUTHOR AUTHOR'S ORGANIZ ATION 11/07/2024 [facility] Specialists EPIC DATE CREATED AUTHOR AUTHOR'S ORGANIZ ATION 11/16/2024 [facility] Care Teams (unrecognized sec tion and content) Team Status: Active Member Role Status Dates Grayson Hernandez MD Primary Care Provider Active Team Status: Active Member Role Status Dates Grayson Hernandez MD Primary Care Provider Active Start: October 08, 2024 Morgan Womack MD Attending Provider Active Start : October 08, 2024 Team Status: Inactive Member Role Status Dates Grayson Hernandez MD Primary Care Provider Active Start: October 16, 2024 End: October 16, 2024 Morgan Womack MD Attending Provider Active Start : October 16, 2024 End: October 16, 2024 Certified Physician'S Assistant Relationship Specialty Start Date End Date Grayson Hernandez MD PCP - General 04/17/19 Certified Physician'S Assistant Relationship Specialty Start Date End Date Grayson Hernandez MD [address], [place] [phone] PCP - [employer] 05/23/22 Grayson Hernandez MD [address] [phone] (Fax) PCP - General Family Medicine 10/12/22 Grayson Hernandez MD [address], [place] [address] (Fax) PCP - [employer] 05/23/23 Walker Monroy MD [address] [place], [place] [phone] Referring Physician Neurology 06/30/23 Tasia Irizarry MD [address] [place] [address] Referring Physician Cardiology 06/30/23 Kirstie Mcneil LISW-S [address] [address] Tribunal Member Behavioral Health 06/30/23 Certified Physician'S Assistant Relationship Specialty Start Date End Date Grayson Hernandez MD PCP - General 04/17/19 Certified Physician'S Assistant Relationship Specialty Start Date End Date Grayson Hernandez MD PCP - General 04/17/19 Certified Physician'S Assistant Relationship Specialty Start Date End Date Grayson Hernandez MD PCP - General 04/17/19 Certified Physician'S Assistant Relationship Specialty Start Date End Date Grayson Hernandez MD [address] [phone] PCP - [employer] 05/23/22 Grayson Hernandez MD [address] [phone] PCP - General Family Medicine 10/12/22 Walker Monroy MD [address] [place] [address] Referring Physician Neurology 06/30/23 Tasia Irizarry MD [address] [place] [address] Referring Physician Cardiology 06/30/23 Kirstie Mcneil LISW-S [address] [address] Tribunal Member Behavioral Health 06/30/23 Shannen Velazquez, RN Registered Nurse Family Medicine 11/09/23 Certified Physician'S Assistant Relationship Specialty Start Date End Date Grayson Hernandez MD [address] [place] [address] PCP - [employer] 05/23/22 Grayson Hernandez MD [address] [place] [address] PCP - General Family Medicine 10/12/22 Walker Monroy MD [address] [place] [address] Referring Physician Neurology 06/30/23 Tasia Irizarry MD [address] [place] [address] Referring Physician Cardiology 06/30/23 Kirstie Mcneil LISW-S [address] [address] Tribunal Member Behavioral Health 06/30/23 Shannen Velazquez, RN Registered Nurse Family Medicine 11/09/23 Team Status: Inactive Member Role Status Dates [...] April 10, 2024 End: April 11, 2024 Certified Physician'S Assistant Relationship Specialty Start Date End Date Grayson Hernandez MD [address] [place] [address] [phone] (Fax) PCP - [employer] 05/23/22 05/22/24 Grayson Hernandez MD [address] [address] (Fax) PCP - General Family Medicine 10/12/22 Walker Monroy MD [address] [place] [address] Referring Physician Neurology 06/30/23 Tasia Irizarry MD [address] [place] [address] Referring Physician Cardiology 06/30/23 Kirstie Mcneil LISW-S [address] [place] [phone] Tribunal Member Behavioral Health 06/30/23 Shannen Velazquez, ROGE Registered Nurse Family Medicine 11/09/23 Certified Physician'S Assistant Relationship Specialty Start Date End Date Grayson Hernandez MD [address] [address] (Fax) PCP - Devoted 05/23/22 05/22/24 Grayson Hernandez MD [address] [place] [address] [address] (Fax) PCP - General Family Medicine 10/12/22 Walker Monroy MD [address] [place] [address] [phone] Referring Physician Neurology 06/30/23 Tasia Irizarry MD [address] [place] [address] Referring Physician Cardiology 06/30/23 Kirstie Mcneil LISW-S [address] [place] [address] Tribunal Member Behavioral Health 06/30/23 Shannen Velazquez, ROGE Registered Nurse Family Medicine 11/09/23 Certified Physician'S Assistant Relationship Specialty Start Date End Date Grayson Hernandez MD [address] [place] [address] (Fax) PCP - Devoted 05/23/22 05/22/24 Grayson Hernandez MD [address] [place] [address] (Fax) PCP - General Family Medicine 10/12/22 Walker Monroy MD [address] [place] [address] Referring Physician Neurology 06/30/23 Tasia Irizarry MD [address] [place] [address] Referring Physician Cardiology 06/30/23 Kirstie Mcneil LISW-S [address] [place] [address] Tribunal Member Behavioral Health 06/30/23 Shannen Velazquez, ROGE Registered Nurse Family Medicine 11/09/23 Certified Physician'S Assistant Relationship Specialty Start Date End Date Grayson Hernandez MD [address] [place] [address] (Fax) PCP - Devoted 05/23/22 Grayson Hernandez MD [address] [place] [phone] (Fax) PCP - General Family Medicine 10/12/22 Walker Monroy MD [address] [place] [address] Referring Physician Neurology 06/30/23 Tasia Irizarry MD [address] [place] [address] Referring Physician Cardiology 06/30/23 Kirstie Mcneil LISW-S [address] [address] Tribunal Member Behavioral Health 06/30/23 Shannen Velazquez, RN Registered Nurse Family Medicine 11/09/23 Certified Physician'S Assistant Relationship Specialty Start Date End Date Grayson Hernandez MD [address] [place] [address] (Fax) PCP - Devoted 05/23/22 Grayson Hernandez MD [address] [place] [address] (Fax) PCP - General Family Medicine 10/12/22 Walker Monroy MD [address] [place] [address] Referring Physician Neurology 06/30/23 Tasia Irizarry MD [address] [place] [address] Referring Physician Cardiology 06/30/23 Kirstie Mcneil LISW-S [address] [place] [address] Tribunal Member Behavioral Health 06/30/23 Shannen Velazquez, RN Registered Nurse Family Medicine 11/09/23 Certified Physician'S Assistant Relationship Specialty Start Date End Date Grayson Hernandez MD [address] [place] [address] (Fax) PCP - Devoted 05/23/22 Grayson Hernandez MD [address] [place] [address] (Fax) PCP - General Family Medicine 10/12/22 Walker Monroy MD [address] [place] [address] Referring Physician Neurology 06/30/23 Tasia Irizarry MD [address] [place] [address] Referring Physician Cardiology 06/30/23 Kirstie Mcneil LISW-Carlos Eduardo [address] [place] [address] Tribunal Member Behavioral Health 06/30/23 Shannen Velazquez, RN Registered Nurse Family Medicine 11/09/23 Certified Physician'S Assistant Relationship Specialty Start Date End Date Grayson Hernandez MD [address] [place] [phone] (Fax) PCP - General Family Medicine 10/12/22 Walker Monroy MD [address] [place] [address] Referring Physician Neurology 06/30/23 Tasia Irizarry MD [address] [place] [address] Referring Physician Cardiology 06/30/23 Kirstie Mcneil LISW-S [address] [place] [address] Tribunal Member Behavioral Health 06/30/23 Shannen Velazquez RN Registered Nurse Family Medicine 11/09/23 Certified Physician'S Assistant Relationship Specialty Start Date End Date Grayson Hernandez MD [address] [place] [phone] (Fax) PCP - General Family Medicine 10/12/22 Walker Monroy MD [address] [place] [address] Referring Physician Neurology 06/30/23 Tasia Irizarry MD [address] [place] [address] Referring Physician Cardiology 06/30/23 Kirstie Mcneil LISW-S [address] [place] [address] Tribunal Member Behavioral Health 06/30/23 Shannen Velazquez, ROGE Registered Nurse Family Medicine 11/09/23 Certified Physician'S Assistant Relationship Specialty Start Date End Date Grayson Hernandez MD [address] [address] PCP - General Family Medicine 10/12/22 Walker Monroy MD [address] [place] [address] Referring Physician Neurology 06/30/23 Tasia Irizarry MD [address] [place] [address] Referring Physician Cardiology 06/30/23 Kirstie Mcneil LISW-S [address] [place] [address] Tribunal Member Behavioral Health 06/30/23 Shannen Velazquez, ROGE Registered Nurse Family Medicine 11/09/23 Certified Physician'S Assistant Relationship Specialty Start Date End Date Grayson Hernandez MD [address] [place] [address] PCP - General Family Medicine 10/12/22 Walker Monroy MD [address] [place] [address] Referring Physician Neurology 06/30/23 Tasia Irizarry MD [address] [place] [address] Referring Physician Cardiology 06/30/23 Kirstie Mcneil LISW-S [address] [place] [address] Tribunal Member Behavioral Health 06/30/23 Shannen Velazquez, ROGE Registered Nurse Family Medicine 11/09/23 Certified Physician'S Assistant Relationship Specialty Start Date End Date Grayson Hernandez MD [address] [place] [address] (Fax) PCP - General Family Medicine 12/21/21 Certified Physician'S Assistant Relationship Specialty Start Date End Date Grayson Hernandez MD [address] [place] [address] (Fax) PCP - General Family Medicine 12/21/21 Name Effective Dates (start - stop) Status Members No Information Certified Physician'S Assistant Relationship Specialty Start Date End Date Grayson Hernandez MD [address] [address] (Fax) PCP - General Family Medicine 10/12/22 Walker Monroy MD [address] [place] [address] Referring Physician Neurology 06/30/23 Tasia Irizarry MD [address] [place] [address] Referring Physician Cardiology 06/30/23 Shannen Velazquez, RN Registered Nurse Family Medicine 11/09/23 Certified Physician'S Assistant Relationship Specialty Start Date End Date Grayson Hernandez MD [address] [address] (Fax) PCP - General Family Medicine 10/12/22 Walker Monroy MD [address] [place] [address] Referring Physician Neurology 06/30/23 Tasia Irizarry MD [address] [place], [place] [phone] Referring Physician Cardiology 06/30/23 Shannen Velazquez, RN Registered Nurse Family Medicine 11/09/23 Certified Physician'S Assistant Relationship Specialty Start Date End Date Grayson Hernandez MD [address] [address] (Fax) PCP - General Family Medicine 10/12/22 Walker Monroy MD [address] [place] [address] Referring Physician Neurology 06/30/23 Tasia Irizarry MD [address] [place] [address] Referring Physician Cardiology 06/30/23 Shannen Velazquez RN Registered Nurse Family Medicine 11/09/23 Certified Physician'S Assistant Relationship Specialty Start Date End Date Grayson Hernandez MD [address] [address] (Fax) PCP - General Family Medicine 10/12/22 Walker Monroy MD [address] [place] [address] Referring Physician Neurology 06/30/23 Tasia Irizarry MD [address] [place] [address] Referring Physician Cardiology 06/30/23 Shannen Velazquez RN Registered Nurse Family Medicine 11/09/23 Certified Physician'S Assistant Relationship Specialty Start Date End Date Grayson Hernandez MD [address] [place] [address] (Fax) PCP - General Family Medicine 10/12/22 Walker Monroy MD [address] [place] [address] Referring Physician Neurology 06/30/23 Tasia Irizarry MD [address] [place] [address] Referring Physician Cardiology 06/30/23 Shannen Velazquez, RN Registered Nurse Family Medicine 11/09/23 Certified Physician'S Assistant Relationship Specialty Start Date End Date Grayson Hernandez MD [address] [address] PCP - General Family Medicine 10/12/22 Walker Monroy MD [address] [place] [address] Referring Physician Neurology 06/30/23 Tasia Irizarry MD [address] [place], [place] [phone] Referring Physician Cardiology 06/30/23 Shannen Velazquez, RN Registered Nurse Family Medicine 11/09/23 Certified Physician'S Assistant Relationship Specialty Start Date End Date Grayson Hernandez MD [address] [address] (Fax) PCP - General Family Medicine 10/12/22 Walker Monroy MD [address] [place] [address] Referring Physician Neurology 06/30/23 Tasia Irizarry MD [address] [place], [place] [phone] Referring Physician Cardiology 06/30/23 Shannen Velazquez RN Registered Nurse Family Medicine 11/09/23 Certified Physician'S Assistant Relationship Specialty Start Date End Date Grayson Hernandez MD [address] [facility] [address] [place] [address] (Fax) PCP - General Family Medicine 10/12/22 Walker Monroy MD [address] [place] [address] Referring Physician Neurology 06/30/23 Tasia Irizarry MD [address] [place] [address] Referring Physician Cardiology 06/30/23 Shannen Velazquez RN Registered Nurse Family Medicine 11/09/23 Certified Physician'S Assistant Relationship Specialty Start Date End Date Grayson Hernandez MD [address] [address] (Fax) PCP - General Family Medicine 10/12/22 Walker Monroy MD [address] [place] [address] Referring Physician Neurology 06/30/23 Tasia Irizarry MD [address] [place], [place] [phone] Referring Physician Cardiology 06/30/23 Shannen Velazquez RN Registered Nurse Family Medicine 11/09/23 Certified Physician'S Assistant Relationship Specialty Start Date End Date Grayson Hernandez MD [address] [place] [address] (Fax) PCP - General Family Medicine 10/12/22 Walker Monroy MD [address] [place] [address] Referring Physician Neurology 06/30/23 Tasia Irizarry MD [address] [place], [place] [phone] Referring Physician Cardiology 06/30/23 Shannen Velazquez RN Registered Nurse Family Medicine 11/09/23 Certified Physician'S Assistant Relationship Specialty Start Date End Date Grayson Hernandez MD [address] [address] (Fax) PCP - General Family Medicine 10/12/22 Walker Monroy MD [address] [place] [address] Referring Physician Neurology 06/30/23 Tasia Irizarry MD [address] [place], [place] [phone] Referring Physician Cardiology 06/30/23 Shannen Velazquez, RN [address] [phone] Registered Nurse Family Medicine 11/09/23 Certified Physician'S Assistant Relationship Specialty Start Date End Date Grayson Hernandez MD [address] [address] (Fax) PCP - General Family Medicine 10/12/22 Walker Monroy MD [address] [place] [address] Referring Physician Neurology 06/30/23 Tasia Irizarry MD [address] [place] [address] Referring Physician Cardiology 06/30/23 Shannen Velazquez RN [address] [facility] [address] [place] [address] Registered Nurse Family Medicine 11/09/23 Certified Physician'S Assistant Relationship Specialty Start Date End Date Grayson Hernandez MD (Fax) PCP - General 04/17/19 Certified Physician'S Assistant Relationship Specialty Start Date End Date Grayson Hernandez MD (Fax) PCP - General 04/17/19 Certified Physician'S Assistant Relationship Specialty Start Date End Date Grayson Hernandez MD [address] [place] [address] (Fax) PCP - General Family Medicine 10/12/22 Grayson Hernandez MD [address] [place] [address] (Fax) PCP - Medical [place] 05/23/2405/22 Walker Monroy MD [address] [place] [address] Referring Physician Neurology 06/30/23 Tasia Irizarry MD [address] [place] [address] Referring Physician Cardiology 06/30/23 Shannen Velazquez RN [address] [place] [address] Registered Nurse Family Medicine 11/09/23 Scheduled Active [...] (SUBLIMAZE) injection (CANCELED) PRN, Starting on Jesica 424 at 1351, Until Jesica 4 at 1407, Intra-procedure(Cath) 1349 (Given - Provid er: Isabel Iyer RN) midazolam (VERSED) injection (CANCELED) PRN, Starting on Jesica 4/24 at 1351, Until Jesica 424 at 1407, Intra-procedure(Cath) 1349 (Given - Provid [...] BE BASED ON THE PRIMARY CLINICAL RECORDS. [employer] provides no warranty or guarantee of the accuracy or completeness of information in this document.
[2025-02-09 11:13] LABS: Anion Gap 16.7; Blood Urea Nitrogen 37.0 mg/dL (7.0-18.0); Calcium 9.0 mg/dL (8.5-10.1); Carbon Dioxide 22.4 mmol/L (21.0-32.0); Chloride 107 mmol/L (98-107); Estimated GFR (African America 36 (>=60 mL/min/1.73m^2); Estimated GFR (Non-African Ame 30 (>=60 mL/min/1.73m^2); Glucose 158 mg/dL (74-106); Potassium 4.1 mmol/L (3.5-5.1); Sodium 142 mmol/L (136-145)
== END 2025-02-09 09:59 | disposition home or self-care (01) ==
PROVIDERS: PCP Family Medicine; Visit Provider Family Medicine
DX: N18.4 Chronic kidney disease, stage 4 (severe) (principal)
CPT/HCPCS: 36415; 80048; 84100

== ENCOUNTER 2025-03-25 10:53 | Outpatient (OUT) | payer MEDICARE, SELFPAY ==
--- OUTSIDE RECORDS SUMMARY | 2025-03-11 19:39 | XMS_ITS | Continuity of Care Document ---
Author Organization [facility] Address [address] [place] [address] Phone Care Team Providers Care Commercial Food Instructor Name Role Phone Grayson Espitia MD Primary Care Provider Maryjo Morrison APRN Attending Provider Care Teams Visit Care Team Team Status: Inactive Member Role/Relationship Status Dates Grayson Espitia MD Primary Care Provider Active Start: March 11, 2025 End: March 11, 2025Patricольга Morrison APRN SENIOR SOFTWARE QUALITY ENGINEER-CAttending Provider ActiveStart: March 11, 2025 End: March 11, 2025 Patient Care Team Team Status: Inactive Member Role/Relationship Status Dates DARRELL Griffin RN SENIOR SOFTWARE QUALITY ENGINEER-C Attending Provider Active Start: March 11, 2025 End: March 11, 2025 Chief Complaint and Reason for Visit Chief Complaint Admit Date possible UTI March 11, 2025 1 2:14pm Reason for Visit Admit Date Urinary incontinence March 11, 2025 12:14pm Allergies, Adverse Reactions, Alerts Allergen Type Severity Reaction Last Updated Verified Status latex Allergy Unknown Itching, anaphylaxis Octo 2024 12:15pm Yes Active Social History Smoking Status Status Start Date End Date Date of Observa tion Never smoked tobacco (finding) March 08, 2024 1:35pm Observation Status Observation Response Date of Response Legal Sex Female (finding) Sex Assigned At BirthFemaleJuly 1950 Family History Relationship Condition Age at Onset Recorded Date/T khoa brother Hypertension Unknown sisterHypertensionUnknownsisterHypertensionUnknownfatherDeceasedUnknownMalignant neoplasmUnknownfamily memberDeceasedUnknownmotherMotor vehicle accidentUnknown DeceasedUnknownHistory of strokeUnknown Problems Active Problems Problem Diagnosis/Recorded Date Onset Date Stat us Type 2 diabetes mellitus wit h diabetic chronic kidney disease March 08, 2024 12:22pm Unknown Active Secondary hyperparathyroidism March 08, 2024 12:23 pm Unknown Active Urinary incontinence March 11, 2025 3:58pm Unknown Active CKD (chronic kidney disease) stage 4, GFR 15-29 ml/min March 08, 2024 12:22pm Unknown Active Hypertensive chronic kidney disease with stage 1 through stage 4 chronic kidney disease, or unspecified chronic kidney disease March 08, 2024 12:22pm Unknown Active Hyperlipidemia April 17, 2024 3:45pm Unknown Active Post herpetic neuralgia March 11, 2025 12:20pm Unk nown Active Asymptomatic bacteriuria October 16, 2024 2:32pm Unknown Active Anemia of renal disease March 08, 2024 12:22pm Unk nown Active Hypertension March 11, 2025 12:20pm Unknown A ctive Hypokalemia March 11, 2025 12:19pm Unknown A ctive Medications Medication Status Dose Units Route Directions Qty Days Refills S tart Date Stop Date End Date Reason(s) Instructions Adherence Furosemide 40 mg tablet Active 40 MG PO Daily November 19, 2020 12:00amUnknownAtorvastatin 40 mg manbteZxcswh64JLVGLellbFgws 30th, 2021 12:00amUnknownSennosides (Senna) 8.6 mg TabletDiscontinued8.6MGPO DailyNovember 19, 2020 12:00amOctober 2023 1:34pmCarvedilol 6.25 mg tablet Plcaflgfjucr26.5MGPOTwice dailyNovember 19, 2020 12:00amOctober 2023 1:34pm Gabapentin 600 mg rwqhqwDtspzsrnqrfo197JJNAInytg dailyNovember 19, 2020 12:00am March 08, 2024 1:33pmTrazodone 50 mg smlfecGbdjawcvmnae16QCUKKgqqr at bedtimeNovember 19, 2020 12:00amOcttr[facility] 2023 1:34pmHydrocodone-Acetaminophen 5-325 mg XzupwcDeqdcuyuqcgm1HSZXOExhtg daily as needed for PainJune 2020 12:00amOctober 2023 1:34pmGlipizide 10 mg dzkfpkDlohkgwbxddy91UTLVFqbno dailyJun2020 12:00amOctober 2023 1:29pmAcetaminophen (Acetaminophen Extra Strength) 500 mg KlqgwiKrqqay213LIYLH5U as needed for Pain November 19, 2020 12:00amUnknownSpironolactone 25 mg kneffuOqqdqbfcqaeu74GISATpfjf November 19, 2020 12:00amOcttrigg [facility] hospital 2023 1:34pmFamotidine 20 mg tablet Gymnezrqzhdo28JLUIEmtmvSxxm 30th, 2021 12:00amOcttrigg [facility] hospital 2023 1:33pm Amlodipine 10 mg xdfwcrVndrtmnxdvcp10BSPTLblziRvom 30th, 2021 12:00amOcttrigg [facility] hospital 2023 1:33pmDiphenhydramine Hcl (Benadryl) 25 mg FsmtuemItgdjmryqwmj92QTZD Daily at bedtimeJun2020 12:00amOcttrigg county hospital 2023 1:33pmLevothyroxine 125 mcg EtyowuDqtjpugbkbuy851MCCBDQatvfHwav 30th, 2021 12:00amOcttrigg county hospital 2023 1:26pmLosartan 25 mg znxtwaSmtittiybtns57SGPIEchcdFlrz 30th, 2021 12:00amOcttrigg [facility] hospital 2023 1:34pmAspirin 81 mg RchydtAedptj49TUEXRpbxsOtyj 2020 12:00am UnknownPolyethylene Glycol KmwcgfZbsajurjzpom6QXMQMEOCPRLUDGKzozf as needed for ConstipationJun2020 12:00amOcttrigg county hospital 2023 1:34pmPsyllium Husk (Metamucil) 0.52 gram CapsuleDiscontinued0.52GMPODaily as needed for ConstipationJun2020 12:00amOcttrigg county hospital 2023 1:34pmDuloxetine 60 mg capsule,delayed release(DR/EC)Pnlqpjyzuogl43SEIMTeaoqAifr 2020 12:00amMay 2024 2:16pmPotassium Gluconate 595 mg (99 mg) vdfgymMxhchgfojlvy121MDHN DailyJune 2020 12:00amOctober 2023 1:34pm2 tab in am and 1 tab in pm Cholecalciferol (Vitamin D3) (Vitamin D3) 125 mcg (5,000 unit) Tablet Drjkkucemiuy460UNGYBYfmqiKvky 2020 12:00amOctober 2023 1:34pm Lactobacillus Combination No.4 (Probiotic) 3 billion cell CapsuleDiscontinued 3000MMU CELLSPODailyJune 2020 12:00amOctober 2023 1:34pmMagnesium Oxide 400 mg magnesium EwnzrhHpkgwhrxsgoy306BGQGQl DirectedJune 2020 12:00amOctober 2023 1:34pmCholecalciferol (Vitamin D3) (Vitamin D3) 125 mcg (5,000 unit) cztdebExltzwcucibl603HDYTSLsakpAbdtbhz 2023 1:27pmMay 2024 2:17pmMagnesium Oxide 400 mg magnesium ughuilYhpptydzbfao622NTZKIctrb March 08, 2024 1:28pmMay 2024 2:21pmCarvedilol 6.25 mg tabletActive 6.25MGPOTwice dailyOct2023 1:29pmUnknownMagnesium Oxide 400 mg magnesium wnsvvpYhvtpe404MXQROxupa dailySd2024 2:17pmUnknown Levothyroxine 88 mcg pcyimeEkgkns64INAVHYrtppOyshdfa 17th, 2024 12:00amUnknown Diltiazem Hcl (Cartia Xt) 180 mg capsule,extended release 69drUybnhi975ZWMZVpkih March 08, 2024 12:00amUnknownCalcium Citrate 250 mg calcium qpyrffComoie749 MGPODailyOctober 2023 12:00amUnknownApixaban (Eliquis) 5 mg tabletActive5 MGPOTwice dailyOctober 2023 12:00amUnknownDulaglutide (Trulicity) 0.75 mg/0.5 mL pen injectorDiscontinued0.75MGSUBCUTevery weekMarch 08, 2024 12:00amMarch 11, 2025 12:16pmDonepezil 10 mg bambbzEiphphyhngrs45BDSPJteob at bedtimeHenry [facility]2023 12:00amOct2024 12:16pmAlprazolam 1 mg tablet extended release 24 gkYjrpvi0VJXWIzfxgEmlljdq 17th, 2024 12:00amUnknown Loratadine (Claritin) 10 mg sdhyaaRknctv30MZPFOjpqhYzpxiyq 17th, 2024 12:00am UnknownAripiprazole 2 mg ompqkmTbpacptuhxrj9QZTZEdwdeOcbmije 17th, 2024 12:00am October 16, 2024 2:21pmTurmeric Root Extract 500 mg tyqcrjjYbmudohyodme044RTMG Twice dailyMarch 08, 2024 12:00amOct2023 1:46pmAripiprazole 2 mg ygmbozCpkuca7BVMVBzasxRdr 27th, 2025 2:19pmUnknownDuloxetine 40 mg capsule,delayed release(DR/EC)Ndnczi29VNHXUajmeFku 27th, 2025 12:00amUnknown Cholecalciferol (Vitamin D3) 50 mcg (2,000 unit) fbldmfmPkedeg93HHOBWVxddsCic 27th, 2025 12:00amUnknownDonepezil 10 mg tuqawmXkgxlr12QORHTcwze at bedtimeMa2024 12:00amUnknownDulaglutide (Trulicity) 0.75 mg/0.5 mL pen injector Active0.75MGSUBCUTevery weekOctober 16, 2024 12:00amUnknown Immunizations Immunization Event Date Not Given Reason Dose Number Preparation Supervisor Canning Lot Number Reason(s) Given Vaccine Information Statement (VIS) Detail Administration Location COVID-19 mRNA-1273 (Moderna) August 02, 2020 COVID-19 mRNA-1273 (Moderna)August 30, 2020 Procedures Procedure Date Performed Status Urine Culture March 11, 2025 active Relevant Diagnostic Tests and/or Laboratory Data Laboratory Results Test Collection Date/Time Result Date/Time Result Interpretation Reference Range Result Comment Performing Site Urine Color March 11, 2025 12:32pm March 11, 2025 1:12pm yellow Urine AppearanceOct2024 12:32pmOct2024 1:12pmclearUrine Glucose (UA)March 11, 2025 12:32pmOct2024 1:99xs004xy/dLUrine BilirubinOctober 2024 12:32pmOctober 2024 1:12pmnegativeUrine KetonesOct2024 12:32pmOct2024 1:12pmnegativeUrine Specific GravityOctober 2024 12:32pmOct2024 1:12pm1.025Urine Occult BloodOctober 2024 12:32pmOct2024 1:12pmmoderateUrine pHOctober 2024 12:32pmOct2024 1:12pm6.0Urine ProteinOctober 2024 12:32pmOctober 2024 1:12pmnegativeUrine UrobilinogenOctober 2024 12:32pmOct2024 1:12pm0.2EU/dLUrine NitriteOctober 2024 12:32pm March 11, 2025 1:12pmNegativeUrine Leukocyte EsteraseOct2024 12:32pmOct2024 1:12pmnegative Vital Signs Vital Reading Result Reference Range Collection Date/Time Height 62 [in_i] March 11, 2025 12:83bvCdgrdp24.13 kgFebtrigg county hospital 2024 12:22pmBody Vwzdjzfzrnt82.9 [degF]97.6-99.0Octtrigg [facility] 2024 12:22pmHeart Rate74 /shh70-072 March 11, 2025 12:22pmRespiratory rate18 /sng98-90Xguxrsg 20th, 2025 12:22pm Oxygen saturation by Pulse kwgrcasd52 %95-100Oct2024 12:22pmBP Piqtajsc706 mm[Hg]100-140Octtr[facility] 2024 12:22pmBP Mnxfujqfb86 mm[Hg]60-100 March 11, 2025 12:22pmBMI (Body Mass Index)27.1 kg/u1Qscjoak 2024 12:22pm Advance Directives Advance Directive Response Recorded Date/ Time Advance Directives No September 29 7:54am Insurance Providers Guarantor Eleanorjudd Mcclain [place] Address [address] [id number] Info.Home Phone: Coverage Status Update:2024 Payer Group Member ID Coverage Type Subscriber Relationship to Subscriber Effective Date Expiration Date MMO MCR Adv PFFS [id number] Harrison Id: [id number] [address] [place] [phone] Home Phone: Self Encounters Encounter Location(s) Arrival/Admit Date Discharge/Departure Date Discharge/Departure Disposition Provider(s) Departed Physician/ Provider Office Visit -[facility] [place] March 11, 2025 12:14pm March 11, 2025 1:16pm Discharged to home care or self care (routine discharge) Maryjo Morrison APRN Departed Referred -[facility] March 11, 2025 1:00pm March 11, 2025 1:01pm Discharged to home care or self care (routine discharge) Maryjo Morrison APRN Recent Diagnosis Onset Date Admit Date Urinary incontinence Unknown February 12:14pm Assessments Diagnosis Onset Date Resolution Status Admit Date [facility] incontinence [facility] 2024 12:14pm Plan of Treatment Author Maryjo Morrison [facility]AuthoredOct[facility] 2024 4:01pmUrine dip positive for blood. Encouraged patient and to follow up with PCP in 3-5 days. Urine sent for culture. Future Tests Future scheduled test information is unavailable Pending Tests Test Name Ordered Date Scheduled Date Urine Culture March 11, 2025 1:00pm Future Visits Future appointment information is unavailable Future Procedures Procedure Name Ordered Date Scheduled Date Urine Culture March 11, 2025 1:13pm Octobe r 2024 1:00pm Future Medications Future medication information is unavailable Patient Instructions Patient instructions are unavailable
--- OUTSIDE RECORDS SUMMARY | 2025-03-25 11:11 | XMS_ITS | Encounter Summary ---
Author Organization [facility] Address [address] [place] [address] Care Team Providers Care Wildlife Biostation Research Ecologist Name Role Phone Grayson Espitia MD Unavailable [phone] Grayson Espitia MD Primary Care Provider [phone] Walker Monroy MD Unavailable Farhad Harper MD Unavailable [phone] Shannen Velazquez RN Unavailable [phone] Grayson Espitia MD Unavailable [phone] Encounter Details DateTypeDepartmentCare Team (Latest Contact Info)Dzsvvayilnt77/11/2024Clinisync Result Encounter [facility] External Department Unsolicited Provider, Generic External Data Social History Tobacco UseTypesPacks/DayYears UsedDateSmoking Tobacco: NeverSmokeless Tobacco: NeverAlcohol UseStandard Drinks/WeekCommentsYes1 (1 standard drink = 0.6 oz pure alcohol)Caffeine: 2-4 cupsSocial Connection and Isolation PanelAnswerDate RecordedIn a typical week, how many times do you talk on the phone with family, friends, or neighbors?More than three times a week09/05/2023How often do you get together with friends or relatives?Once a week09/05/2023How often do you attend latter-day or moravian services?More than 4 times per year4Do you belong to any clubs or organizations such as latter-day groups, unions, fraternal or athletic groups, or school groups?Yes09/05/2023How often do you attend meetings of the clubs or organizations you belong to?More than 4 times per year09/05/2023 Are you , , , , never , or living with a partner?Owrxweb5809/05/2023UDIT-CAnswerDate RecordedQ1: How often do you have a drink containing alcohol?Monthly or less09/05/2023Q2: How many drinks containing alcohol do you have on a typical day when you are drinking?1 or Q3: How often do you have six or more drinks on one occasion?Never09/05/2023Overall Financial Resource Strain (CARDIA)AnswerDate RecordedHow hard is it for you to pay for the very basics like food, housing, medical care, and heating?Not hard at all09/05/2023HQ-2AnswerDate RecordedPatient Health Questionnaire-2 Score1 03/05/2025[facility] [place] of Occupational Health - Occupational Stress QuestionnaireAnswerDate RecordedDo you feel stress - tense, restless, nervous, or anxious, or unable to sleep at night because yourmind is troubled all the time - these days?To some agllev0809/05/2023Exercise Vital SignAnswerDate Recorded On average, how many days per week do you engage in moderate to strenuous exercise (like a brisk walk)?0 days09/05/2023On average, how many minutes do you engage in exercise at this level?0 min09/05/2023Hunger Vital SignAnswerDate RecordedWithin the past 12 months, you worried that your food would run out before you got the money to buymore.Never true09/05/2023Within the past 12 months, the food you bought just didn't last and you didn't have money to get more.Never true09/05/2023RAPARE - TransportationAnswerDate RecordedIn the past 12 months, has lack of transportation kept you from medical appointments or from getting medications?No09/05/2023In the past 12 months, has lack of transportation kept you from meetings, work, or from getting things needed for daily living?No09/05/2023Housing Stability Vital SignAnswerDate RecordedIn the last 12 months, was there a time when you were not able to pay the mortgage or rent on time?No09/05/2023In the last 12 months, how many places have you lived?1 09/05/2023In the last 12 months, was there a time when you did not have a steady place to sleep or slept in ashelter (including now)?No09/05/2023EducationAnswer Date RecordedWhat is the highest level of school you have completed or the highest degree you have received?Some college, no [id number] CommentsNoSex and Gender InformationValueDate RecordedSex Assigned at BirthNot on fileLegal JvoLyzjik02/15/2023 6:51 PM EDTGender IdentityNot on fileSexual OrientationNot on fileOccupationIndustryJob Start DateJob End DateRetiredNot on fileNot on fileNot on filedocumented as of this encounter Functional Status * Over the past 2 weeks, how often have you been bothered by any of the following problems?QuestionAnswerDate of AssessmentAuthorLittle interest or pleasure in doing thingsNot at all03/05/2025 2:39 PM Trice Pauly, ALEC Feeling down, depressed, or hopelessSeveral days03/05/2025 2:39 PM Trice August [facility]ITALatient [facility] Questionnaire-2 [id number] 2:39 PM Pauly Carnes, ALEC documented as of this encounter Plan of Treatment DateTypeDepartmentCare Team (Latest Contact Info)Ffrimgjtbgq51/16/2026 1:05 PM EDTOffice Visit [facility] [address] [place] [address] Lula Gasca MD [address] [place] [address] documented as of this encounter Procedures Procedure NamePriorityDate/TimeAssociated DiagnosisCommentsECG 12-LEAD05/02/2024 10:55 AM EST documented in this encounter Results * ECG 12-LEAD (05/02/2024 10:55 AM EST)Anatomical RegionLateralityModalityOther Specimen (Source)Anatomical Location / LateralityCollection Method / Volume Collection TimeReceived Time05/02/2024 10:55 AM EST Narrative 05/02/2024 8:16 PM EST [facility] ?[address] ? [place] [address] ? Electrocardiograph Report ? Signed ? Patient: ELEANOR MCCLAIN ?MR#: [id number] ?? : 1950 ?Acct:[id number] ?? Age/Sex: 73 / F ?ADM Date: 05/02/24 ?? Loc: CARD ? Attending Dr: Non-Staff Physician M.D. ? Ordering Physician: Physician,Non-Staff M.D. ?? Date of Service: 05/02/24 ?? Procedure(s): ECG 12 lead ?? Accession Number(s): [id number] ? cc: ?[facility] ? Test Date: ?2024-05-02 ?? Pat Name: ? ELEANOR RHETT ?Department: ? Room: ? - ?? Gender: ? Female ? Translator/Interpreter: ? : ?1950 ? Requested By: [id number] ?? Order Number: [id number] ?Reading MD: ?? GINO ??BALL ? Measurements ?? Intervals ?[place] ? Rate: ? 53 ? P: ?78 ?? IL: ? 180 ?QRS: ?67 ?? QRSD: ? 89 ? T: ?78 ?? QT: ? 455 ? QTc: ?430 ? Interpretive Statements ?? SINUS BRADYCARDIA ?? NONSPECIFIC T-WAVE ABNORMALITY ?? Electronically Signed On 05-02-2024 20:16:37 EST by GINO ??BALL ? Dictated By: ?Ball,Gino D.O. ? Signed By: ?12/11/24 2016 ?05/02/24 2016 ? DD/ 1055 ? TD/TT: ? Returner: Procedure Note Radiology, Radiologist, - 05/02/2024 [place] [address] Electrocardiograph Report Signed Patient: ELEANOR MCCLAIN MMR#: [id number] : 9Acct:[id number] Age/Sex: 73 / FADM Date: 05/02/24 Loc: CARD Attending Dr: Non-Staff Physician Sharita Ordering Physician: PhysicianNon-Staff Sharita Date of Service: 05/02/24 Procedure(s): ECG 12 lead Accession Number(s): [id number] cc: [facility] Test Date: 2024-05-02 Pat Name: ELEANOR MCCLAIN Department: Room: - Gender: Female Translator/Interpreter: : 1950 Requested By: [id number] Order Number: [id number] Bryant MD: GINO PENNY Measurements Intervals [place] Rate: 53 P: 78 [place]: 180 QRS: 67 QRSD: 89 T: 78 QT: 455 QTc: 430 Interpretive Statements SINUS BRADYCARDIA NONSPECIFIC T-WAVE ABNORMALITY Electronically Signed On 05-02-2024 20:16:37 EST by GINO PENNY Dictated By: Gino Penny D.O. Signed By:05/02/24201505/02/242015 DD/ 1055 TD/TT: Returner: Authorizing ProviderResult TypeResult StatusGeneric External Data Provider [facility] IMAGINGFinal Result documented in this encounter Visit Diagnoses Not on filedocumented in this encounter Additional Health Concerns AssessmentNoted TimePHQ-9 Depression Total Score: 2:00 PM EST documented as of this encounter Care Teams Team MemberRelationshipSpecialtyStart DateEnd Date Grayson Espitia MD [address] [address] PCP - Devoted05/23/2311 Grayson Espitia MD [address] [address] PCP - GeneralFamily Medicine10/12/22 Grayson Espitia MD [address] [place] [address] PCP - Medical [place]05/23/2511 Walker Monroy MD [address] [place] [address] Referring PhysicianNeurolog06/30/23 Farhad Harper MD [address] [place] [address] Referring PhysicianCardiology2 Shannen Velazquez, ROGE [address] [facility] [address] [place] [address] Registered NurseFamily [facility]11/09/23documented as of this encounter
--- OUTSIDE RECORDS SUMMARY | 2025-03-25 11:11 | XMS_ITS | Encounter Summary ---
Author Organization [facility] Address [address] [place] [address] Care Team Providers Care Elevator Operator Service Name Role Phone Grayson Espitia MD Primary Care Provider [phone] Walker Monroy MD Unavailable Farhad Harper MD Unavailable [phone] Shannen Velazquez RN Unavailable [phone] Grayson Espitia MD Unavailable [phone] Encounter Details DateTypeDepartmentCare Team (Latest Contact Info)Euqfrlbdmov85/22/2025Patient Outreach [facility] [address] [place] [phone] Shannen Velazquez, ROGE [address] [place] [address] Social History Tobacco UseTypesPacks/DayYears UsedDateSmoking Tobacco: NeverSmokeless Tobacco: NeverAlcohol UseStandard Drinks/WeekCommentsYes1 (1 standard drink = 0.6 oz pure alcohol)Caffeine: 2-4 cupsSocial Connection and Isolation PanelAnswerDate RecordedIn a typical week, how many times do you talk on the phone with family, friends, or neighbors?More than three times a week09/05/2023How often do you get together with friends or relatives?Once a week09/05/2023How often do you attend mormonism or adventist services?More than 4 times per year09/05/2023o you belong to any clubs or organizations such as mormonism groups, unions, fraternal or athletic groups, or school groups?Yes09/05/2023How often do you attend meetings of the clubs or organizations you belong to?More than 4 times per year09/05/2023 Are you , , , , never , or living with a partner?Tctfsev6809/05/2023UDIT-CAnswerDate RecordedQ1: How often do you have a [...] hard at all09/05/2023HQ-2AnswerDate RecordedPatient Health Questionnaire-2 Score1 03/05/2025[facility] [place] of Occupational Health - Occupational Stress QuestionnaireAnswerDate RecordedDo you feel stress - tense, restless, nervous, or anxious, or unable to sleep at night because yourmind is troubled all the time - these days?To some ogxtvp4309/05/2023Exercise Vital SignAnswerDate Recorded On average, how many [...] highest degree you have received?Some college, no [id number] CommentsNoSex and Gender InformationValueDate RecordedSex Assigned at BirthNot on fileLegal RfpBmzedf81/15/2023 6:51 PM EDTGender IdentityNot on fileSexual OrientationNot on fileOccupationIndustryJob Start DateJob End DateRetiredNot on fileNot on fileNot on filedocumented as of this encounter Progress Notes * Shannen Velazquez RN - 03/13/2025 2:23 PM EDT Called pt's , Howard. ARMANDO, requested call back regarding urine culture and appt scheduled. <March 13, 2025, 14:26 - Shannen Velazquez RN> Howard returned call, discussed what the urine culture showed. Agreed to cancel appt scheduled for tomorrow. Howard states pt is drinking more fluids now. He is working on how much miralax to give pt so she has soft stools but not diarrhea. Pt did have a bowel movement today documented in this encounter Plan of Treatment DateTypeDepartmentCare Team (Latest Contact Info)Qpfienbfvsz77/16/2026 1:05 PM EDTOffice Visit [facility] [place] [facility] [address] [place] [phone] Lula Gasca MD [address] [place] [address] documented as of this encounter Visit Diagnoses Diagnosis Chronic kidney disease, stage 4 (severe) (HCC)- Primary Chronic diastolic congestive heart failure, NYHA class 1 (HCC) documented in this encounter Additional Health Concerns AssessmentNoted TimePHQ-9 Depression Total Score: 2:00 PM EST documented as of this encounter Care Teams Team MemberRelationshipSpecialtyStart DateEnd Date Grayson Espitia MD [address] [place] [address] PCP - GeneralFamily Medicine10/12/22 Grayson Espitia MD [address] [place] [address] PCP - Medical [place]05/23/2511 Walker Monroy MD [address] [place] [address] Referring PhysicianNeurolog06/30/23 Farhad Harper MD [address] [place] [address] Referring PhysicianCardiology2 Shannen Velazquez, ROGE [address] [place] [address] Registered NurseFamily Medicine11/09/23documented as of this encounter
--- OUTSIDE RECORDS SUMMARY | 2025-03-25 11:11 | XMS_ITS | Clinical Summary ---
Author Organization [facility] Address [address] [place] [address] Care Team Providers Care Occupational Therapist Home Based Name Role Phone Grayson Espitia MD Primary Care Provider Walker Monroy MD Unavailable Farhad Harper MD Unavailable [phone] Shannen Velazquez RN Unavailable [phone] Grayson Espitia MD Unavailable [phone] Allergies Active AllergyReactionsCriticalityNoted DateCommentsLatexAnaphylaxisHigh 05/10/2019 Other Reaction(s): Anaphylactic Shock, nose runs, eyes swell, itching Other reaction(s): nose runs, eyes swell, itching, unknown Eyes swell shut, rash Eyes swell shut, rash Eyes swell shut, rash Medications MedicationSigDispense QuantityRefillsLast FilledStart DateEnd DateStatus apixaban (Eliquis) 5 MG tablet Take 1 tablet by mouth in the morning and 1 tablet before bedtime.10/11/2022 Active Blood Glucose Monitoring Suppl (ONE TOUCH ULTRA 2) w/Device kit 08/30/2022ctive cholecalciferol (Vitamin D-3) 125 MCG (5000 UT) capsule Indications:Vitamin D DeficiencyTake 5,000 Units by mouth DailyActive dulaglutide (Trulicity) 0.75 MG/0.5ML solution pen-injector Indications:Type 2 Diabetes MellitusInject 0.75 mg under the skin once a week On TuesdayActive calcium citrate 250 MG tablet Indications:HypocalcemiaTake 1 tablet by mouth 1 (one) time each dayActive aspirin 81 MG EC tablet Take 81 mg by mouth in the morning.11/24/2022ctive carvedilol (Coreg) 6.25 MG tablet Take 6.25 mg by mouth in the morning and 6.25 mg in the evening. Take with meals.Active levothyroxine (Synthroid, Levoxyl) 88 MCG tablet Indications:Acquired hypothyroidismTake 1 tablet (88 mcg) by mouth Daily 90 tablet 105515Active glucose blood (EquaMetricsTouch Ultra) test strip Indications:Type 2 diabetes mellitus with both eyes affected by mild nonproliferative retinopathy without macular edema, without long-term current use of insulin (HCC)1 each by Other route Daily 100 each 306//140540/6Active DULoxetine (Cymbalta) [address] capsule Indications:Anxiety associated with depressionTake 2 capsules (40 mg) by mouth Daily Do not crush or chew. 60 capsule /5Active Lancets (OneTouch Delica Plus Qnanqj72Q) [facility] [place] Indications:Diabetic nephropathy associated with type 2 diabetes mellitus (HCC), Stage 3 chronic kidney disease due to type 2 diabetes mellitus ([facility])1 Lancet Daily 100 each 309510/6Active dilTIAZem CD (Cardizem CD) 180 MG 24 hr capsule Indications:Primary hypertensionTake 1 capsule (180 mg) by mouth Daily 90 capsule 110/6Active furosemide (Lasix) 20 MG tablet Indications:Primary hypertension,Chronic diastolic congestive heart failure, NYHA class 1 ([facility])2 tablets every am (= 40 mg) and 1 tablet (=20 mg) daily before supper 90 tablet 5Active ferrous sulfate 325 (65 Fe) MG tablet Indications:Anemia due to stage 3b chronic kidney disease ([facility]-H[facility])Take 1 tablet (325 mg) by mouth every other day 45 tablet 310/6Active donepezil (Aricept) 10 MG tablet Indications:Chronic organic brain syndromeTake 2 tablets (20 mg) by mouth at bedtime 180 tablet 110/037842/6Active ipratropium (Atrovent) 0.06 % nasal spray Indications:Anxiety associated with depressionAdminister 2 sprays into each nostril in the morning and 2 sprays at noon and 2 sprays in the evening and 2 sprays before bedtime. 15 mL /Discontinued(Therapy completed) atorvastatin (Lipitor) 40 MG tablet Indications:Mixed hyperlipidemiaTake 1 tablet (40 mg) by mouth Daily 90 tablet Discontinued(Therapy completed) donepezil (Aricept) 10 MG tablet Indications:Chronic organic brain syndromeTake 2 tablets (20 mg) by mouth at bedtime 180 tablet Discontinued(Reorder) furosemide (Lasix) 20 MG tablet Indications:Primary hypertension,Chronic diastolic congestive heart failure, NYHA class 1 (HCC),Edema, unspecified type2 tablets every am (= 40 mg) and 1 tablet (=20 mg) daily before supper 90 tablet Discontinued(Reorder) ALPRAZolam (Xanax) 0.25 MG tablet Indications:Anxiety associated with depressionTake 0.5 tablets (0.125 mg) by mouth in the morning and 0.5 tablets (0.125 mg) before bedtime.01/22/2025 03/05/2025Discontinued(Therapy completed) ferrous sulfate 325 (65 Fe) MG tablet Take 325 mg by mouth every other day03/05/2025Discontinued(Reorder) dilTIAZem CD (Cardizem CD) 180 MG 24 hr capsule Indications:Primary hypertensionTake 1 capsule (180 mg) by mouth Daily 90 capsule Discontinued(Reorder) cefuroxime (Ceftin) 250 MG tablet Indications:Acute cystitis without hematuriaTake 1 tablet (250 mg) by mouth in the morning and 1 tablet (250 mg) before bedtime. Do all this for 5 days. 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 Basal ganglia xmxkhwwqxo98/05/2023Ischemic pxkmqp6210/25/2022oronary artery disease involving [place] coronary artery of [place] heart without angina pectoris 10/25/2022nemia due to stage 3b chronic kidney ojcoasb8010/25/2022or pulmonale, jexmszt6710/25/2022iastolic congestive heart failure, NYHA class H/O: CVA (cerebrovascular accident)10/25/2022History of aortic valve replacement 10/25/2022Hx of CABG10/25/2022Ischemic nephropathy with hypertensive spwckgpsaichirb24/05/3494Mszdzlgavrzr23/05/2023Left carotid artery stenosis 10/25/2022LVH (left ventricular hypertrophy)10/25/20224833Gsoyloisgkucgh03/05/2023 Moderate episode of recurrent major depressive yqpwdykd93/05/2023Neurogenic orthostatic hggcviojzks44/05/2023Nocturnal srhedgmms80/05/2023aroxysmal atrial ymxalsopcpox36/05/9906Kprolmmduanmluzn36/05/2023ersistent disorder of initiating or maintaining sleep10/25/2022rimary osteoarthritis of left knee 10/25/2022Sequela, post-wygysu3910/25/2022Vascular dementia with behavior nlcwiozmtxc81/05/2023History of xonjayw9910/20/20228243Uvmkty55/31/2023Other specified disorders of bone density and structure, right thigh06/08/2021History of basal cell carcinoma (BCC)1Renal artery kyqhispq52/21/2021Chronic organic brain fmjpvymd05/09/2021Controlled substance agreement fdvoxh5605/19/2020Acquired bugerqfkxdzajq27/23/2020Chronic fatigue mrdqjxke44/22/2020Postherpetic neuralgia 10/29/2019Idiopathic sleep related nonobstructive alveolar hypoventilation 10/04/2019Persistent cognitive hnqqudrogi13/14/7628Cfspnxgbhjon78/14/2020 Gastroesophageal reflux xdjzoyn4908/27/2019Hemiplegia of nondominant side as late effect of cerebrovascular vyzmvan8108/20/2019Slow transit owvbmavrncsu99/30/2020 Cervical stenosis of spinal canal08/02/2019Abdominal aortic atherosclerosis 07/02/2019Thoracic aorta mxoyvamsflleqke86/10/2020Overweight (BMI 25.0-29.9) 04/11/2019Vitamin D jkqodwrqwn05/20/0863Tddnarrsshgeaj87/30/2019Vitreous degeneration of both eyes05/04/2018Nonexudative age-related macular degeneration, bilateral, early dry stage08/25/2017Nuclear senile cataract 08/25/20178861Uuibbvonxhcs28/01/2018Surgical kimnnmdkm98/19/2017Diabetic renal lziciwt8803/07/2017Mild nonproliferative diabetic retinopathy associated with type 2 diabetes pktxhymt98/30/2017Chronic allergic vfnakcsx92/16/2017Mitral valve mxbcygjj59/10/2016Systolic gjmvje5808/27/2015Benign essential hypertension 03/05/20154536Sgiegzfqzot76/14/2015Euthyroid sick ujvszgiy50/12/2015Long QT syndrome 03/03/20158161Yfirndffzddorlkd73/12/2015Ischemic vascular efysscj5311/23/1904 Resolved Problems ProblemNoted DateDiagnosed DateResolved AlflSrnigwtrx41/16/202410/10/2024Low serum frpjehk44/bnormality of totluez69/cute kidney injury superimposed on chronic kidney uvxlnyo05/04/2023Herpes zoster without wtdkpcmvjcpi08/05/202302/Generalized iwpkahjc70/31/2023 02/25/20255501Dvzfvoopz99Hyperglycemia due to type 2 diabetes hqxluyvr90/Multi-infarct dementia with noyukqrs92/11/2021 07/12/2023etinal hemorrhage, domhnvufr67/10/2024Stage 4 chronic kidney /Late effects of cerebrovascular disease /4Acute postoperative respiratory uzralgg61 Fall/cute cerebral gimnogpmfg66AD, multiple waqtje86 Encounters DateTypeDepartmentCare UjfhJfylydhyhvq23/22/2025[facility] [address] [place] [address] Shannen Velazquez, ROGE 03/12/2025Patient Outreach [facility] [address] [place] [address] Shannen Velazquez, ROGE 03/11/2025[place]phone [place] [address] [place] [address] Cecile Pauly, [place] Care Oomxaxhqbgot38/15/2025[facility] [address] [place] [address] Shannen Velazquez RN 03/05/2025 2:30 PM EDTOffice Visit [address] [place] [address] Grayson Espitia MD Primary hypertension (Primary Dx); Mixed hyperlipidemia; Hypokalemia; Type 2 diabetes mellitus with stage 3b chronic kidney disease, without long-term current use of insulin (HCC); Anemia due to stage 3b chronic kidney disease (CMS-HCC); Microalbuminuria; Paroxysmal atrial fibrillation (HCC); Chronic diastolic congestive heart failure, NYHA class 1 (HCC); Acute cystitis without hematuria; Chronic pruritus; Hxmgjnsnmxrp40/14/2025Bamboo flowsheet [facility] [address] [place] [address] Grayson Espitia MD 03/05/20255839Etntug90/09/2025Telephone [place] [place] [address] Cecile Pauly [place] Care Tzxkgoldryel27/29/2025[facility] [address] [place] [address] Shannen Velazquez RN 02/11/2025Telephone [facility] [address] [place] [address] Shannen Velazquez RN 02/09/2025linisync Result Encounter [facility] External Department Unsolicited Grayson Espitia MD 02/07/2025Telephone [facility] [address] [place] [address] Shannen Velazquez RN 02/05/2025Patient Outreach [facility] [address] [place] [address] Shannen Velazquez RN 02/04/2025Patient Outreach [facility] [address] [place] [address] Shannen Velazquez RN 01/29/2025Patient Outreach [facility] [address] [place] [address] Shannne Velazquez RN 01/28/2025Patient Outreach [facility] [address] [place] [address] Shannen Velazquez RN 01/22/2025Patient Outreach [facility] [address] [place] [address] Shannen Velazquez RN 01/07/2025Patient Outreach [facility] [address] [place] [address] Shannen Velazquez RN 01/03/2025Patient Outreach [facility] [address] [place] [address] Shannne Velazquez RN 12/31/2024Telephone [facility] [address] [place] [address] Shannen Velazquez RN 12/28/2024Patient Outreach [facility] [address] [place] [address] Shannen Velazquez RN 12/27/2024Telephone [facility] [address] [place] [address] [address] [place] [address] Grayson Espitia MD from Last 3 Months Immunizations ImmunizationAdministration DatesNext DueInfluenza, High Dose Seasonal, Preservative Free06/23/2021,03/25/2018Influenza, injectable, quadrivalent, preservative free03/01/2020,03/25/2018,03/01/2016Influenza, recombinant, quadrivalent, injectable, preservative free02/28/2020Moderna Bivalent Booster Gdtmavfvlnj30/28/2022Moderna SARS-CoV-2 Thgkiawrivt27/22/2022neumococcal Conjugate PCV 13012/20/20168841OYOE-FKV-7 (COVID-19) vaccine, mRNA, spike protein, LNP, bivalent, PF03/19/2022Zoster, Bllizxxiizx75/01/2024,06/24/2023 Family History Medical HistoryRelationNameCommentsCancerFatherAlcohol abuseMotherDiabetesMother StrokeMotherNo Known ProblemsOtherMultiple myelomaNeg HxRelationNameStatus CommentsFatherDeceasedMotherDeceasedOtherAlivespouse Social History Tobacco UseTypesPacks/DayYears UsedDateSmoking Tobacco: NeverSmokeless Tobacco: Never Tobacco Cessation:Counseling Given: Yes Alcohol UseStandard Drinks/WeekCommentsYes1 (1 standard drink = 0.6 oz pure alcohol)Caffeine: 2-4 cupsSocial Connection and Isolation PanelAnswerDate RecordedIn a typical week, how many times do you talk on the phone with family, friends, or neighbors?More than three times a week09/05/2023How often do you get together with friends or relatives?Once a week09/05/2023How often do you attend orthodoxy or spiritism services?More than 4 times per year09/05/2023o you belong to any clubs or organizations such as orthodoxy groups, unions, fraternal or athletic groups, or school groups?Yes09/05/2023How often do you attend meetings of the clubs or organizations you belong to?More than 4 times per year09/05/2023 Are you , , , , never , or living with a partner?Evbmegz6809/05/2023UDIT-CAnswerDate RecordedQ1: How often do you have a [...] hard at all09/05/2023HQ-2AnswerDate RecordedPatient Health Questionnaire-2 Score1 03/05/2025[facility] [place] [facility] - Occupational Stress QuestionnaireAnswerDate RecordedDo you feel stress - tense, restless, nervous, or anxious, or unable to sleep at night because yourmind is troubled all the time - these days?To some abnvqg1509/05/2023Exercise Vital SignAnswerDate Recorded On average, how many [...] highest degree you have received?Some college, no unpqpn283 CommentsNoSex and Gender InformationValueDate RecordedSex Assigned at BirthNot on fileLegal WgbZwilhq97/15/2023 6:51 PM EDTGender IdentityNot on fileSexual OrientationNot on fileOccupationIndustryJob Start DateJob End DateRetiredNot on fileNot on fileNot on file Last Filed Vital Signs Vital SignReadingTime TakenCommentsBlood Fmnfpbcw860/7603/05/2025 2:33 PM EDT Uzgtc508903/05/2025 2:33 PM EDTTemperature--Respiratory Rate--Oxygen Kzinlvjsxm46% 03/05/2025 2:33 PM EDTInhaled Oxygen Concentration--Iaabue76.4 kg (142 lb) 03/05/2025 2:33 PM VENHqtkkj425.8 cm (5' 2.5 )03/05/2025 2:33 PM EDTBody Mass Index25.561 2:33 PM EDT Plan of Treatment DateTypeDepartmentCare Team (Latest Contact Info)Wcawfvvbuwx16/16/2026 1:05 PM EDTOffice Visit [facility] [address] [place] [address] Lula Gasca MD [address] [place] [address] Health MaintenanceDue DateLast DoneCommentsDTaP/Tdap/Td Vaccines (1 - Tdap) 6COVID-19 Vaccine (2024- season)51, 03/19/2022, 08/11/2021, Additional history existsDiabetes: Urine Protein Vcftquanq94/19/2025 04/10/2024, 07/25/2022, 12/10/2021, Additional history existsDiabetes: Retinopathy Wpautvvqu39/14/90892107/06/2024, 07/07/2023, 06/23/2023, Additional history existsPneumococcal Vaccine: 65+ IojcqImicpksiqzas63/31/2017Colonoscopy Csfgxkyujxhh55/18/2021olorectal Cancer ScreeningDiscontinuedMammogram Migisqostmmv73/04/2022, 05/26/2021Influenza YafqlalFdfkkrhfunac64/01/2022, 03/01/2020, 02/28/2020, Additional history existsDiabetes: Hemoglobin A1C Bmdnojbqedbz73/06/2025, 05/24/2024, 03/03/2023, Additional history existsCT ColonographyDiscontinuedFIT-DNADiscontinuedFITDiscontinuedFOBTDiscontinuedHIB VaccinesAged OutNo longer eligible based on patient's age to complete this topic HPV VaccinesAged OutNo longer eligible based on patient's age to complete this topicHepatitis A VaccinesAged OutNo longer eligible based on patient's age to complete this topicHepatitis B VaccinesAged OutNo longer eligible based on patient's age to complete this topicIPV VaccinesAged OutNo longer eligible based on patient's age to complete this topicMeningococcal B VaccineAged OutNo longer eligible based on patient's age to complete this topicMeningococcal VaccineAged OutNo longer eligible based on patient's age to complete this topicRotavirus VaccinesAged OutNo longer eligible based on patient's age to complete this topic SigmoidoscopyDiscontinued Procedures Procedure NamePriorityDate/TimeAssociated DiagnosisCommentsHEMOGLOBIN M8NLmokdwf 02/25/2025 10:58 AM EDT Type 2 diabetes mellitus with hyperglycemia, without long-term current use of insulin (HCC) LIPID GEHEZAxlcrsc49/06/2025 10:58 AM EDT Mixed hyperlipidemia COMPREHENSIVE METABOLIC UBALIQznhoas25/06/2025 10:58 AM EDT Primary hypertension Hypokalemia Type 2 diabetes mellitus with stage 4 chronic kidney disease, without long-term current use of insulin ([facility]) ALL ZFLOZYVLHYACfcsqvf59/20/2025 10:21 AM EDT ALL BASIC METABOLIC YYBQLRyfyqud03/20/2025 10:21 AM EDT DIABETIC RETINOPATHY SCREENING - OU - BOTH SJSKBydohee51/14/2025 8:35 AM EST MICROALBUMIN, URINE ZGIDYXvkkizt35/21/2022 12:00 PM EDT BI MAMMOGRAM SCREENING UZGZIIEQFHlgtehm21/04/2022 12:00 PM EST Type 2 diabetes mellitus with diabetic chronic kidney disease (HCC) Mixed hyperlipidemia Hypomagnesemia Hypokalemia Long QT syndrome Slow transit constipation Encounter for screening for other disorder Essential (primary) hypertension Encounter for general adult medical examination without abnormal findings Stage 3 chronic kidney disease ([facility]) Vitamin D deficiency, unspecified Proteinuria, unspecified Encounter for screening for osteoporosis Insomnia, unspecified Allergic rhinitis, unspecified Gastro-esophageal reflux disease without esophagitis Other parts counterman (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 Other postherpetic nervous system involvement Cardiomegaly Unspecified abnormal findings in urine Personal history of other malignant neoplasm of skin Sick-euthyroid syndrome Chronic fatigue, unspecified Hypothyroidism, unspecified MCC (current) use of anticoagulants Idiopathic sleep related [...] and 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 For someone with known diabetes, a value <7% indicates that their diabetes is well controlled and a value greater than or equal to 7% indicates suboptimal control. A1c targets should be individualized based on duration of diabetes, age, comorbid conditions, and other considerations. Currently, no consensus exists regarding use of hemoglobin A1c for diagnosis of diabetes for children. Specimen (Source)Anatomical Location / LateralityCollection Method / Volume Collection TimeReceived TimeBloodVenous blood specimen / Eiorkqo2702/25/2025 10:58 AM EDT1 10:58 AM EDT Narrative [facility] - 02/26/2025 6:02 AM EDT FASTING:YES FASTING: YES Resulting Agency Comment Performing Organization Information ?Site ID: QPT ?Name: [email or web address] ?Address: [address] [place] [address], [address] [place] [phone] ?Director: Stephan Kline MD Authorizing ProviderResult TypeResult StatusGrayson Espitia MDLAB BLOOD ORDERABLESFinal ResultPerforming OrganizationAddressCity/State/ZIP CodePhone Number [facility] * (ABNORMAL) Lipid panel (02/25/2025 10:58 AM EDT)ComponentValueRef RangeTest MethodAnalysis TimePerformed AtPathologist SignatureCHOLESTEROL, ROOTK009(H) <200 mg/dLQUESTHDL ZHMTJLRQWMD79> OR = 50 mg/wQQLEKFWNEWHIGIDYDAT898<150 mg/dL QUESTLDL KBXAIOZRZZM962(H)mg/dL (calc)QUESTComment: Reference range: <100 Desirable range <100 mg/dL for primary prevention; <70 mg/dL for patients with CHD or diabetic patients with > or = 2 CHD risk factors. LDL-C is now calculated using the Concepcion calculation, which is a validated novel method providing better accuracy than the Friedewald equation in the estimation of LDL-C. Luis Eduardo JONES et al. ANGELA. 2013;310(19): 2505-8299 (http://education.Kou[employer]i.com.[employer]/faq/VUN991) CHOL/HDLC RATIO3.3<5.0 (calc)QUESTNON HDL SDMGHHRRECB257(H)<130 mg/dL (calc) QUESTComment: For patients with diabetes plus 1 major ASCVD risk factor, treating to a non-HDL-C goal of <100 mg/dL (LDL-C of <70 mg/dL) is considered a therapeutic option. Specimen (Source)Anatomical Location / LateralityCollection Method / Volume Collection TimeReceived TimeBloodVenous blood specimen / Rvlvmaq8602/25/2025 10:58 AM EDT1 10:58 AM EDT Narrative [facility] - 02/26/2025 6:02 AM EDT FASTING:YES FASTING: YES Resulting Agency Comment Performing Organization Information ?Site ID: QPT ?Name: [email or web address] ?Address: [address] [place] [address], [address] [place] [phone] ?Director: Stephan Kline MD Authorizing ProviderResult TypeResult StatusEdshivam Espitia MDLAB BLOOD ORDERABLESFinal ResultPerforming OrganizationAddressCity/State/ZIP CodePhone Number [facility] * (ABNORMAL) Comprehensive metabolic panel (02/25/2025 10:58 AM EDT)Component ValueRef RangeTest MethodAnalysis TimePerformed AtPathologist SignatureGlucose 185(H)65 - 99 mg/dLQUESTComment: ? Fasting reference interval For someone without known diabetes, a glucose value >125 mg/dL indicates that they may have diabetes and this should be confirmed with a follow-up test. BUN38(H)7 - 25 mg/dLQUESTCreatinine1.61(H)0.60 - 1.00 mg/sICQLPMUVBH35(L)> OR = 60 mL/min/1.44h7XCBEDKCR/CREATININE RATIO24(H)6 - 22 (calc)LAHEPKgccvx752356 - 146 mmol/LQUESTPotassium, Bld4.23.5 - 5.3 mmol/UPACRHSeccbqbh45966 - 110 mmol/L QUESTCarbon Jxuvcvd6152 - 32 mmol/LQUESTCalcium9.68.6 - 10.4 mg/dLQUESTPROTEIN, TOTAL7.26.1 - 8.1 g/dLQUESTALBUMIN4.13.6 - 5.1 g/dLQUESTGLOBULIN3.11.9 - 3.7 g/dL (calc)QUESTALBUMIN/GLOBULIN RATIO1.31.0 - 2.5 (calc)QUESTBILIRUBIN, TOTAL 0.50.2 - 1.2 mg/dLQUESTALKALINE LEDNWGWKZBG36655 - 153 U/PMNMRZZSS5625 - 35 U/L PTHMNUAS22 - 29 U/LQUESTSpecimen (Source)Anatomical Location / Laterality Collection Method / VolumeCollection TimeReceived TimeBloodVenous blood specimen / Cefdbka0902/25/2025 10:58 AM EDT1 10:58 AM EDT Narrative [facility] - 02/26/2025 6:02 AM EDT FASTING:YES FASTING: YES Resulting Agency Comment Performing Organization Information ?Site ID: QPT ?Name: [facility] ?Address: [address] [place] [phone] ?Director: Stephan Kline MD Authorizing ProviderResult TypeResult StatusGrayson Espitia MDLAB BLOOD ORDERABLESFinal ResultPerforming OrganizationAddressCity/State/ZIP CodePhone Number [facility] * ALL PHOSPHOROUS (02/09/2025 10:21 AM EDT)ComponentValueRef RangeTest Method Analysis TimePerformed AtPathologist SignaturePHOSPHORUS4.02.6 - 4.7 mg/dLTBH Specimen (Source)Anatomical Location / LateralityCollection Method / Volume Collection TimeReceived Time02/09/2025 10:21 AM EDT02/09/2025 10:22 AM EDT Narrative CLINISYNC - 02/09/2025 11:37 AM EDT Authorizing ProviderResult TypeResult StatusGrayson Espitia [facility] TAHLEQUAHLINISYNCFinal ResultPerforming OrganizationAddressCity/State/ZIP CodePhone Number AISHWARYA [facility] * (ABNORMAL) ALL BASIC METABOLIC PANEL (02/09/2025 10:21 AM EDT)ComponentValue Ref RangeTest MethodAnalysis TimePerformed AtPathologist LxzlvrbxeYRDQOB776286 - 145 mmol/LTBHPOTASSIUM4.13.5 - 5.1 mmol/IBIGRFFTBLNZ54225 - 107 mmol/LTBH CAR[place] MJDEBIK10.421.0 - 32.0 mmol/LTBHANION GAP16.2MWSOZTKFVS375(H)74 - 106 mg/dLTBHBLOOD UREA GNUEEROW09.0(H)7.0 - 18.0 mg/dLTBHCREATININE1.68(H)0.55 - 1.02 mg/dLTBHTBH EGFR-AF NUSBLCZV14(L)>=60 mL/min/1.73m 2TBHTBH EGFR-NON AF LWYCULXA04(L)>=60 mL/min/1.73m 2TBHBUN CREATININE RATIO22.7VMVAVDOLGL0.08.5 - 10.1 mg/dLTBHSpecimen (Source)Anatomical Location / LateralityCollection Method / VolumeCollection TimeReceived Time02/09/2025 10:21 AM EDT02/09/2025 10:22 AM EDT Narrative CLINISYNC - 02/09/2025 11:37 AM EDT Authorizing ProviderResult TypeResult StatusGrayson Espitia [facility] [facility]YNCFinal ResultPerforming OrganizationAddressty/State/ZIP CodePhone Number [facility] * (ABNORMAL) Diabetic Retinopathy Screening - OU - Both Eyes (07/06/2024 8:35 AM EST)Anatomical RegionLateralityModalityHeadOther Narrative Authorizing ProviderResult TypeResult StatusGrayson Espitia [facility] PHOTOGRAPHY Final Result * MICROALBUMIN, URINE QUANT (12/10/2021 12:00 PM EDT)ComponentValueRef RangeTest MethodAnalysis TimePerformed AtPathologist SignatureGENERIC LEGACY COMPONENT INTERNAL1-1,500ECW NONXML LABSGENERIC LEGACY COMPONENT INTERNAL8.8ECW NONXML LABSSpecimen (Source)Anatomical Location / LateralityCollection Method / VolumeCollection TimeReceived Time12/10/2021 12:00 PM EDT Narrative Authorizing ProviderResult TypeResult StatusGrayson Espitia MDECW LABSFinal ResultPerforming OrganizationAddressCity/State/ZIP CodePhone Number [facility] NONXML LABS * Bilateral screening mammogram (05/26/2021 12:00 PM EST)Anatomical Region LateralityModalityBreastBilateralMammographySpecimen (Source)Anatomical Location / LateralityCollection Method / VolumeCollection TimeReceived Time Narrative 05/26/2021 12:00 PM EST PERFORMED AT [facility] LOCATION:[id number] Procedure Note CONVERSION, GENERIC - 11/26/2022 PERFORMED AT [facility] LOCATION:[id number] Authorizing ProviderResult TypeResult StatusGrayson Espitia MDIMG BI PROCEDURES Final Result * Colonoscopy (01/07/2021 12:00 PM EDT)Anatomical RegionLateralityModality EndoscopySpecimen (Source)Anatomical Location / LateralityCollection Method / VolumeCollection TimeReceived Time01/07/2021 12:00 PM EDT Narrative 01/07/2021 12:00 PM EDT PERFORMED AT [facility] LOCATION:[id number] Procedure Note CONVERSION, GENERIC - 10/06/2022 PERFORMED AT [facility] LOCATION:[id number] Authorizing ProviderResult TypeResult Reta Espitia MDENDOSCOPY PROCEDURE ORDERABLESFinal Result from Last 3 Months or Most Recently Relevant to Health Maintenance Insurance * Guarantor: Eleanor Mcclain TypeRelation to PatientDate of BirthPhone Billing AddressPersonal/MvfmdsStrh[birth year][address] [address] Advance Directives TypeDate RecordedPatient RepresentativeExplanationPower of Attorney12/15/2022 9:23 AMLiving WillAdvance Directives and Living Will12/15/2022 9:22 AM Care Teams Team MemberRelationshipSpecialtyStart DateEnd Date Grayson Espitia MD [address] [place] [address] PCP - GeneralFamily Medicine10/12/22 Grayson Espitia MD [address] [place] [address] PCP - Medical [place]05/23/2511 Walker Monroy MD [address] [place] [address] Referring PhysicianNeurolog06/30/23 Farhad Harper MD [address] [place] [address] Referring PhysicianCardiology06/30/23 Shannen Velazquez, ROGE [address] [place] [address] Registered NurseFamily Medicine11/09/23
--- OUTSIDE RECORDS SUMMARY | 2025-03-25 11:11 | XMS_ITS | Encounter Summary ---
Author Organization [facility] Address [address] [place] [address] Care Team Providers Care Director Of Reimbursement Name Role Phone Grayson Hernandez MD Unavailable [phone] Grayson Hernandez MD Unavailable [phone] Grayson Hernandez MD Primary Care Provider [phone] Walker Monroy MD Unavailable Farhad Harper MD Unavailable [phone] Shannen Velazquez RN Unavailable [phone] Grayson Hernandez MD Unavailable [phone] Encounter Details DateTypeDepartmentCare Team (Latest Contact Info)Zzkkfndyjkm05/12/2024Clinisync Result Encounter [facility] Unsolicited Provider, [...] relatives?Once a week09/05/2023How often do you attend adventist or jehovah's witness services?More than 4 times per year4Do you belong to any clubs or organizations such as adventist groups, unions, fraternal or athletic groups, or school groups?Yes04/15/2024How often do you attend meetings of the clubs or organizations you belong to?More than 4 times per year09/05/2023 Are you , , , , never , or living with a partner?Oynizdp4409/05/2023UDIT-CAnswerDate RecordedQ1: How often do you have a [...] hard at all09/05/2023HQ-2AnswerDate RecordedPatient Health Questionnaire-2 Score1 03/05/2025[facility] [place] [facility] Occup[facility] - Occupational Stress QuestionnaireAnswerDate RecordedDo you feel stress - tense, restless, nervous, or anxious, or unable to sleep at night because yourmind is troubled all the time - these days?To some wlbniz8509/05/2023Exercise Vital SignAnswerDate Recorded On average, how many [...] highest degree you have received?Some college, no CommentsNoSex and Gender InformationValueDate RecordedSex Assigned at BirthNot on fileLegal VyfCrlnas42/15/2023 6:51 PM EDTGender IdentityNot on fileSexual OrientationNot [...] or hopelessSeveral days03/05/2025 2:39 PM Trice August [facility]ITALatient [facility] Questionnaire-2 Zdpeh903 2:39 PM Pauly Carnes, ALEC documented as of this encounter Plan of Treatment DateTypeDepartmentCare Team (Latest Contact Info)Ioegycwjsbk02/16/2026 1:05 PM EDTOffice Visit [facility] [address] [place] [id number] Lula Gasca MD [address] [place] [address] documented as of this encounter Procedures Procedure NamePriorityDate/TimeAssociated DiagnosisCommentsECG 12-LEAD11/02/2023 11:03 AM EDT documented in this encounter Results * ECG 12-LEAD (11/02/2023 11:03 AM EDT)Anatomical RegionLateralityModalityOther Specimen (Source)Anatomical Location / LateralityCollection Method / Volume Collection TimeReceived Time11/02/2023 11:03 AM EDT Narrative 11/03/2023 6:53 AM EDT [facility] ?[address] ? [place], [facility] ? Electrocardiograph Report ? Signed ? Patient: RHETT,ELEANOR M ?MR#: [id number] ?? : 1950 ?Acct:[id number] ?? Age/Sex: 72 / F ?ADM Date: 11/02/23 ?? Loc: LAB ? Attending Dr: Non-Staff Physician M.D. ? Ordering Physician: Physician,Non-Staff M.D. ?? Date of Service: 11/02/23 ?? Procedure(s): ECG 12 lead ?? Accession Number(s): [id number] ? cc: ?[facility] ? Test Date: ?2023-11-02 ?? Pat Name: ? ELEANOR RHETT ?Department: ? Room: ? - ?? Gender: ? Female ? Ophthalmic Dispenser: ? : ?1950 ? Requested By: GRAYSON HERNANDEZ ?? Order Number: [id number] ?Reading MD: ?? GINO ??BALL ? Measurements ?? Intervals ?[place] ? Rate: ? 56 ? P: ?59 ?? TN: ? 216 ?QRS: ?37 ?? QRSD: ? 93 ? T: ?31 ?? QT: ? 461 ? QTc: ?445 ? Interpretive Statements ?? SINUS BRADYCARDIA WITH FIRST DEGREE AV BLOCK ?? Compared to ECG 12/11/2022 07:57:26 ?? First degree AV block now present ?? Sinus rhythm no longer present ?? Myocardial infarct finding no longer present ?? Electronically Signed On 11-03-2023 6:52:34 EDT by GINO ??BALL ? Dictated By: ?Gino Penny D.O. ? Signed By: ?11/03/23 0653 ?11/03/23 0653 ? DD/ 1103 ? TD/TT: ? Vegetable Scullion: Procedure Note Radiology, Radiologist, - 11/03/2023 [place] [address] Electrocardiograph Report Signed Patient: ELEANOR MCCLAIN [facility]#: [id number] : 9Acct:[id number] Age/Sex: 72 / FADM Date: 11/02/23 Loc: LAB Attending Dr: Non-Staff Physician Sheriff Ordering Physician: Beth Lancaster M.D. Date of Service: 11/02/23 Procedure(s): ECG 12 lead Accession Number(s): [id number] cc: [facility] [place] [facility] Test Date: 2023-11-02 Pat Name: ELEANOR MCCLAIN Department: Room: - Gender: Female Ophthalmic Dispenser: : 1950 Requested By: GRAYSON HERNANDEZ Order Number: [id number] Reading MD: GINO PENNY Measurements Intervals [place] Rate: 56 P: 59 TN: 216 QRS: 37 QRSD: 93 T: 31 QT: 461 QTc: 445 Interpretive Statements SINUS BRADYCARDIA WITH FIRST DEGREE AV BLOCK Compared to ECG 12/11/2022 07:57:26 First degree AV block now present Sinus rhythm no longer present Myocardial infarct finding no longer present Electronically Signed On 11-03-2023 6:52:34 EDT by GINO PENNY Dictated By: Gino Penny D.O. Signed By:11/03/2365211/03/23652 DD/ 02 TD/TT: Vegetable Scullion: Authorizing ProviderResult TypeResult StatusGeneric External Data Provider [facility]NC IMAGINGFinal Result documented in this encounter Visit Diagnoses Not on filedocumented in this encounter Additional Health Concerns AssessmentNoted TimePHQ-9 Depression Total Score: 2:00 PM EST documented as of this encounter Care Teams Team MemberRelationshipSpecialtyStart DateEnd Date Grayson Hernandez MD [address] [address] (Fax) PCP - Human Grayson Hernandez MD [address] [address] (Fax) PCP - Devoted05/23/2311 Grayson Hernandez MD [address] [address] (Fax) [facility] - [facility]22 Grayson Hernandez MD [address] [address] (Fax) PCP - Medical [place]05/23/2511 Walker Monroy MD [address] [place] [address] Referring PhysicianNeurolog06/30/23 Farhad Harper MD [address] [place] [address] Referring PhysicianCardiology2 Shannen Velazquez, ROGE [address] [place] [address] Registered NurseFamily Medicine11/09/23documented as of this encounter
--- OUTSIDE RECORDS SUMMARY | 2025-03-25 11:11 | XMS_ITS | Clinical Summary ---
Author Organization [facility] Address [address] [place] [address] Care Team Providers Care Casting And Pasting Supervisor Name Role Phone Unavailable Primary Care Provider Unavailabl e Social History Tobacco UseTypesPacks/DayYears UsedDateSmoking Tobacco: Never AssessedUT Safety & EnvironmentAnswerDate RecordedFear of Current or Ex-PartnerNot on file 07/14/2023Emotionally AbusedNot on file07/14/2023hysically AbusedNot on file 07/14/2023Sexually AbusedNot on file4Physically or Sexually AbusedNot on file07/14/2023CommentsUnknownSex and Gender InformationValueDate RecordedSex Assigned at BirthNot on fileLegal IpdFwahys58/29/2022 10:47 PM EDT Gender IdentityNot on fileSexual OrientationNot on file Plan of Treatment Health MaintenanceDue DateLast DoneCommentsMedicare Annual Wellness (AWV) 1950Depression Jzvzmptyq86/19/1961Adult Kyydxnq9612/08/1970Pneumococcal Vaccine: 50+ Years (1 of 1 - PCV)1998Zoster Vaccines (1 of 2)1998 Fall Risk Aenfsganz35/19/2014COVID-19 Vaccine (1 - 2024- season)2025 Influenza Vaccine (#1)2025HIB VaccinesAged OutNo longer eligible based on patient's age to complete this topicHPV VaccinesAged OutNo longer eligible based on patient's age to complete this topicIPV VaccinesAged OutNo longer eligible based on patient's age to complete this topicMeningococcal B VaccineAged OutNo longer eligible based on patient's age to complete this topicMeningococcal VaccineAged OutNo longer eligible based on patient's age to complete this topic Rotavirus VaccinesAged OutNo longer eligible based on patient's age to complete this topic Insurance * Guarantor: Eleanor Mcclain TypeRelation to PatientDate of BirthPhone Billing AddressPersonal/FubrivDygm63/19/1951 [address] [address]
--- OUTSIDE RECORDS SUMMARY | 2025-03-25 11:11 | XMS_ITS | Clinical Summary ---
Author Organization [facility] Address [address] [facility] [address] Care Team Providers Care Jewelry Model Maker Name Role Phone Grayson Espitia MD Primary Care Provider [phone] Source Comments The following information is NOT included in Care Everywhere downloads:Psychiatric notes, ECG results, Cardiac Rehab notes, Pulmonary Function notes, data from SmartForms (includes but not limited toPregnancy data,audiograms, eye exams, pre-surgical evaluation notes, well-child exam data).[facility] Allergies Active AllergyReactionsCriticalityNoted DateCommentsLatexAnaphylactic ShockHigh 05/10/2019 Eyes swell shut, rash Medications MedicationSigDispense QuantityRefillsLast FilledStart DateEnd DateStatus amiodarone (CORDARONE) 200 MG tablet Take 200 mg by mouth daily.Active amLODIPine (NORVASC) 10 MG tablet Take 10 mg by mouth daily.Active atorvastatin (LIPITOR) 40 mg tablet Take 40 mg by mouth daily.Active CARvedilol (COREG) 12.5 MG tablet Take 12.5 mg by mouth 2 times daily.Active hydrALAZINE (APRESOLINE) 25 MG tablet Take 25 mg by mouth 3 times daily.Active fluoxetine (PROZAC) 40 MG capsule Take 40 mg by mouth daily.Active aspirin 81 mg enteric coated tablet Take 1 Tablet by mouth daily. 30 Tablet 08/07/2019Active docusate sodium (COLACE) 100 mg capsule Take 1 Capsule by mouth 2 times daily. 60 Capsule Active famotidine (PEPCID) 20 mg tablet Take 0.5 Tablets by mouth daily. 60 Tablet Active gabapentin (NEURONTIN) 100 mg capsule Take 2 Capsules by mouth 2 times daily. 90 Capsule Active warfarin (COUMADIN) 2.5 mg tablet Take 1 Tablet by mouth daily. 30 Tablet Active acetaminophen (TYLENOL) 500 mg tablet Take 2 Tablets by mouth every 6 hours as needed. 30 Tablet 08/06/2019Active insulin regular (HUMULIN R) 100 UNIT/mL injection Inject 2-12 Units under the skin 4 times daily (before meals and at bedtime). 10 mL Active lidocaine (LIDODERM) 5 % patch Place 1 Patch on the skin every 24 hours. 10 Patch Active magnesium hydroxide (MILK OF MAGNESIA) 400 MG/5ML oral suspension Take 30 mL by mouth daily as needed for Constipation. 1 Bottle Active ondansetron (ZOFRAN-ODT) 4 mg disintegrating tablet Take 1 Tablet by mouth every 6 hours as needed for Nausea. Place 1 tablet under tongue as needed for nausea. 10 Tablet 08/06/2019Active polyethylene glycol (MIRALAX) packet Take 1 Packet by mouth daily. Dissolve in 8 ounces of liquid.Active senna (SENOKOT) 8.6 mg tablet Take by mouth at bedtime. 30 Tablet 08/06/2019Active Active Problems ProblemNoted DateDiagnosed DateAcute postoperative respiratory sgnvojl6908/02/2019 Auailwpecekobp13/12/2020Cervical stenosis of spinal canal08/02/2019Fall, initial npabhsuvp93/11/2020Acute cerebral cphrsxuyrw51/15/2020CAD, multiple vessel 07/03/2019Coronary artery disease involving winnebago coronary artery of winnebago heart without angina pectorisHx of CABGS/P AVRParoxysmal atrial fibrillationH/O: CVA (cerebrovascular accident)Type 2 diabetes mellitus with other specified complicationElevated INRChronic anemiaAcute kidney injury superimposed on chronic kidney diseaseHerpes zoster without complicationHypertension, unspecified typeHyperlipidemia, unspecified hyperlipidemia typeGastroesophageal reflux disease, esophagitis presence not specified Immunizations ImmunizationAdministration DatesNext DueInfluenza, injectable, high dose seasonal, trivalent, preservative free (OUU=504)03/25/2018Influenza, injectable, quadrivalent, preservative free (IZA=866)03/01/2016Influenza, injectable, recombinant, quadrivalent, preservative free (GXX=978)02/28/2020Pneumococcal conjugate 13 valent (PCV13) (UWV=469)12/20/2016 Social History Tobacco UseTypesPacks/DayYears UsedDateSmoking Tobacco: NeverSmokeless Tobacco: NeverCommentsUnknownSex and Gender InformationValueDate RecordedSex Assigned at BirthNot on fileLegal LiuUnfyvx90/11/2020 5:46 PM EDTGender Identity Not on fileSexual OrientationNot on file Last Filed Vital Signs Vital SignReadingTime TakenCommentsBlood Idfqqaal809/5703 6:00 AM EDT Hehum094408/07/2019 6:00 AM IKOShgtvxmgqkc99.8 ??C (98.3 ??F)08/07/2019 6:00 AM EDTRespiratory Xnho949808/07/2019 6:00 AM EDTOxygen Gdhpxfuzlv35%08/07/2019 6:00 AM EDTInhaled Oxygen Concentration--Vdzoly12.4 kg (148 lb 9.6 oz)08/02/2019 1:03 AM KCCDilhvg780.5 cm (5' 2 )08/01/2019 11:38 PM EDTBody Mass Index27.18 08/01/2019 11:38 PM EDT Plan of Treatment Health MaintenanceDue DateLast DoneCommentsHepatitis C Qvoumebe13/19/1967Tdap Qlidbub4712/08/1966Hepatitis A (HAV) Vaccine (optional start 19+ years)12/09/1967 Shingles (RZV) Vaccine (1 of 2)1998Hepatitis B (HBV) Vaccine (optional start 60+ years)2008one Kxhmcyxocwfn79/19/2014Pneumococcal Vaccine(s) (50+ yrs) (2 of 2 - PPSV23)Annual Wellness Visit (G0438) 06/23/2020asic Metabolic Panel/, 08/06/2019, 08/05/2019, Additional history existsRSV vaccine (adult) (1 - 1-dose 75+ series)12/09/2023 COVID-19 Vaccine (4 - 2024- season)/10/2020, 08/30/2020, 08/02/2020Influenza Vaccine (#1)/12/2019, 03/25/2018, 03/01/2016Pap SmearDiscontinued Procedures Procedure NamePriorityDate/TimeAssociated DiagnosisCommentsBASIC METABOLIC PANEL Hmiewbz4408/07/2019 2:52 AM EDT from Last 3 Months or Most Recently Relevant to Health Maintenance Results * (ABNORMAL) BASIC METABOLIC PANEL (08/07/2019 2:52 AM EDT)ComponentValueRef RangeTest MethodAnalysis TimePerformed AtPathologist AcnudptdjLdzqaim956(H)80 - 116 mg/dL08/07/2019 3:38 AM [facility] JXGKJZHBKLOzkxkj661(L)135 - 148 mmol/L08/07/2019 3:38 AM [facility] LABORATORYPotassium3.93.3 - 5.3 mmol/L08/07/2019 3:38 AM [facility] LABORATORYCarbon Mmrdnhj2570 - 30 mmol/L08/07/2019 3:38 AM [facility] WPVTNCOJTGRfvklrwv74827 - 111 mmol/L 08/07/2019 3:38 AM [facility] LABORATORYBlood Urea Cwnmirnx436 - 22 mg/dL08/07/2019 3:38 AM [facility] LABORATORYCreatinine1.90(H)0.50 - 1.10 mg/dL08/07/2019 3:38 AM [facility] LABORATORYCalcium8.78.4 - 10.4 mg/dL08/07/2019 3:38 AM [facility] LABORATORYAnion Mlc361 - 1303 3:38 AM [facility] PATH[facility] LABORATORYEstimated GFR (CKD-EPI)26(L)>=60 mL/min/1.35odr3808/07/2019 3:38 AM [facility] PATH[facility] LABORATORYSpecimen (Source) Anatomical Location / LateralityCollection Method / VolumeCollection Time Received TimeBloodBLOOD SPECIMEN / UnknownVenipuncture / Fmxflzr0908/07/2019 2:52 AM EDT08/07/2019 3:09 AM EDT Narrative Authorizing ProviderResult TypeResult StatusCharjo ann Wakefield MD98 GENERAL LABFinal ResultPerforming OrganizationAddressCity/State/ZIP CodePhone Number S [facility] [address] [place] [address] from Last 3 Months or Most Recently Relevant to Health Maintenance Insurance Advance Directives * Full Code (Latest Code Status on File) Date ActivatedDate InactivatedComments08/02/2019 12:22 AM08/07/2019 2:43 PM QuestionAnswerCommentsDocumentation of decision process for this code status:* Discussed with patient or surrogate.?? This is the code status chosen by the patient/surrogate. * Full Code Date ActivatedDate InactivatedComments08/02/2019 12:01 AM08/02/2019 12:22 AM QuestionAnswerCommentsDocumentation of decision process for this code status:* Patient and surrogate unable or unavailable to discuss.?? There is no previous documentation of code status.?? Defaulting to Full Code Care Teams Team MemberRelationshipSpecialtyStart DateEnd Date Grayson Espitia MD [address] [place] [address] PCP - GeneralFamily Medicine08/02/19
--- OUTSIDE RECORDS SUMMARY | 2025-03-25 11:11 | XMS_ITS | Clinical Summary ---
Author Organization goTenna tem Address [id number] [address] [place] [address] Care Team Providers Care Whipped Topping Supervisor Name Role Phone Grayson Espitia MD Primary Care Provider Allergies Active AllergyReactionsCriticalityNoted DateCommentsLatexAnaphylaxisHigh 05/10/2019 Other reaction(s): nose runs, eyes swell, itching, unknown Eyes swell shut, rash Eyes swell shut, rash Medications MedicationSigDispense QuantityRefillsLast FilledStart DateEnd DateStatus levothyroxine (SYNTHROID, LEVOTHROID) 100 MCG tablet Take 1 tablet (100 mcg total) by mouth in the morning.Active atorvastatin (LIPITOR) 40 mg tablet Take 1 tablet (40 mg total) by mouth in the morning.Active dilTIAZem CD (CARDIZEM CD) 120 mg 24 hr capsule Take 1 capsule (120 mg total) by mouth in the morning.Active apixaban (ELIQUIS) 5 mg tablet Take 1 tablet (5 mg total) by mouth in the morning and 1 tablet (5 mg total) before bedtime.Active glipiZIDE (GLUCOTROL) 10 mg tablet Take 1 tablet (10 mg total) by mouth in the morning and 1 tablet (10 mg total) in the evening. Takebefore meals. Take with 5 mg dose for [...] and 1 tablet (600 mg total) before bedtime.Active DULoxetine (CYMBALTA) 60 mg capsule Take 1 capsule (60 mg total) by mouth in the morning.Active famotidine (PEPCID) 20 mg tablet Take 1 tablet (20 mg total) by mouth as needed.Active traZODone (DESYREL) 150 mg tablet Take 150 mg by mouth nightly. Take 1/2 tablet.Active furosemide (LASIX) 40 mg tablet Take 1 tablet (40 mg total) by mouth daily.Active cholecalciferol, vitamin D3, 5,000 units tablet Take 2 tablets (10,000 Units total) by mouth in the morning.Active magnesium oxide (MAGOX) 400 mg tablet Take 0.5 tablets (200 mg total) by mouth in the morning.Active ondansetron ODT (ZOFRAN ODT) 4 mg disintegrating tablet Dissolve 1 tablet (4 mg total) on tongue as needed for nausea or vomiting.Active diphenhydrAMINE (BENADRYL) 25 mg capsule Take 1 capsule (25 mg total) by mouth nightly as needed for itching.Active aspirin 81 mg Take 1 tablet (81 mg total) by mouth in the morning. 30 tablet ctive carvediloL (COREG) 12.5 mg tablet Take 0.5 tablets (6.25 mg total) by mouth in the morning and 0.5 tablets (6.25 mg total) in the evening. Take with meals. 30 tablet 11/23/2022ctive Active Problems ProblemNoted DateDiagnosed ZcvvLcgxwx99/01/2023erebrovascular accident (CVA) 11/19/2022VA (cerebral vascular accident)12/31/2021 Immunizations ImmunizationAdministration DatesNext DueCOVID-19, mRNA, LNP-S, PF, 100mcg/0.5mL Dose08/11/2021,04/27/2021,08/30/2020,08/02/2020Influenza High Dose Preservative Free IM06/23/2021,03/25/2018Influenza, Injectable, quadrivalent (PF)03/01/2020, 03/25/2018,03/01/2016Influenza, Recombinant, Quadrivalent, Injectable, Preserv 02/28/2020Pneumococcal Conjugate 13-Ptopor2812/20/2016 Social History Tobacco UseTypesPacks/DayYears UsedDateSmoking Tobacco: NeverSmokeless Tobacco: Never Tobacco Cessation:Counseling Given: Not Answered Alcohol UseStandard Drinks/WeekCommentsNot Currently0 (1 standard drink = 0.6 oz pure alcohol)PHQ-2AnswerDate RecordedTotal Scftt2692ChildcareAnswerDate AoejyucwCbfewebfnZbstrob66/12/2019EmploymentAnswerDate RecordedEmploymentUnknown 11/01/2018Hunger ScreeningAnswerDate RecordedWithin the past 12 months we worried whether our food would run out before we got money to buy more.Never True01/06/2023Within the past 12 months the food we bought just didn't last and we didn't have money to get more.Never True3Purpose - LifeAnswerDate RecordedPurpose and direction in qndpHartgnw29/11/2021CommentsNoSex and Gender InformationValueDate RecordedSex Assigned at BirthNot on fileLegal Sex Yeyytt7612/26/2014 11:43 AM EDTGender IdentityNot on fileSexual OrientationNot on file Last Filed Vital Signs Vital SignReadingTime TakenCommentsBlood Kvdvjrzh744/43001/06/2023 12:57 PM EDT Luupx410611/23/2022 3:40 PM PCRNbwbumykocy53.7 ??C (98.1 ??F)11/23/2022 3:40 PM EDTRespiratory Bevj719901/06/2023 12:57 PM EDTOxygen Kbgfgbepyx02%11/23/2022 3:40 PM EDTInhaled Oxygen Concentration--Qikgnq04.3 kg (155 lb)01/06/2023 12:57 PM KQGSjrmqf415.5 cm (5' 2.01 )01/06/2023 12:57 PM EDTBody Mass Index28.34 01/06/2023 12:57 PM EDT Plan of Treatment Health MaintenanceDue DateLast DoneCommentsDepression Mriaorwfy11/19/1961Tobacco Hifkofkxl27/19/1961DTaP,Tdap and Td Vaccines (1 - Tdap)12/09/1967Zoster (Shingles) Vaccine (1 of 2)1998RSV ( or age 60+ yrs) (1 - 1-dose 75+ series)12/09/2023Fall Risk Rdbzjszgd82/OVID-19 Vaccine (2024- season)/, 04/27/2021, 08/30/2020, Additional history existsInfluenza Xoophwt72/05/2021, 03/01/2020, 02/28/2020, Additional history exists Goals GoalPatient Goal TypeAssociated ProblemsRecent ProgressPatient-Stated?Author <enter goal here> Yanci Newsome RN Note: Evaluation of progress towards goal: patient plans for a safe discharge home with self care and support from and son. Medical Devices Not on file Insurance Advance Directives * Full Code (Latest Code Status on File) Date ActivatedDate InactivatedComments11/20/2022 12:32 PM11/23/2022 8:03 PM * Full Code Date ActivatedDate InactivatedComments12/31/2021 11:23 AM01/04/2022 10:45 PM Care Teams Team MemberRelationshipSpecialtyStart DateEnd Date Grayson Espitia MD PCP - GeneralFamily Medicine8/1/22
--- OUTSIDE RECORDS SUMMARY | 2025-03-25 11:11 | XMS_ITS | Encounter Summary ---
Author Organization [facility] Address [address] [place] [address] Care Team Providers Care Motor Teacher Name Role Phone Grayson Espitia MD Primary Care Provider [phone] Walker Monroy MD Unavailable Farhad Harper MD Unavailable [phone] Shannen Velazquez RN Unavailable [phone] Grayson Espitia MD Unavailable [phone] Encounter Details DateTypeDepartmentCare Team (Latest Contact Info)Untnqrpyotq58/21/2025Patient Outreach [facility] [address] [place] [address] Shannen Velazquez, ROGE [address] [place] [address] Social History Tobacco UseTypesPacks/DayYears UsedDateSmoking Tobacco: NeverSmokeless Tobacco: NeverAlcohol UseStandard Drinks/WeekCommentsYes1 (1 standard drink = 0.6 oz pure alcohol)Caffeine: 2-4 cupsSocial Connection and Isolation PanelAnswerDate RecordedIn a typical week, how many times do you talk on the phone with family, friends, or neighbors?More than three times a week09/05/2023How often do you get together with friends or relatives?Once a week09/05/2023How often do you attend lutheran or hinduism services?More than 4 times per year09/05/2023o you belong to any clubs or organizations such as lutheran groups, unions, fraternal or athletic groups, or school groups?Yes09/05/2023How often do you attend meetings of the clubs or organizations you belong to?More than 4 times per year09/05/2023 Are you , , , , never , or living with a partner?Hwgtbke6009/05/2023UDIT-CAnswerDate RecordedQ1: How often do you have a [...] hard at all09/05/2023HQ-2AnswerDate RecordedPatient Health Questionnaire-2 Score1 03/05/2025[facility] [place] [facility] - Occupational Stress QuestionnaireAnswerDate RecordedDo you feel stress - tense, restless, nervous, or anxious, or unable to sleep at night because yourmind is troubled all the time - these days?To some cjzemi9709/05/2023Exercise Vital SignAnswerDate Recorded On average, how many [...] highest degree you have received?Some college, no [id number] CommentsNoSex and Gender InformationValueDate RecordedSex Assigned at BirthNot on fileLegal DlnNyoyhi67/15/2023 6:51 PM EDTGender IdentityNot on fileSexual OrientationNot on fileOccupationIndustryJob Start DateJob End DateRetiredNot on fileNot on fileNot on filedocumented as of this encounter Progress Notes * Shannen Velazquez RN - 03/12/2025 1:38 PM EDT Pt's , Howard left message. Pt needs rx for Donepezil <March 12, 2025, 14:43 - Shannen Velazquez RN> called Howard, notified that Rx was sent in forDonepezil. Discussed UC visit, states symptoms continue, frequency of urination. No smell. Urine was sent from for culture. 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 Essential (primary) hypertension Unspecified essential hypertension Chronic kidney disease, stage 4 (severe) (HCC) documented in this encounter Additional Health Concerns AssessmentNoted TimePHQ-9 Depression Total Score: 2:00 PM EST documented as of this encounter Care Teams Team MemberRelationshipSpecialtyStart DateEnd Date Grayson Espitia MD [address] [place] [address] PCP - GeneralFamily Medicine10/12/22 Grayson Espitia MD [address] [place] [address] (Fax) PCP - Medical [place]05/23/2511 Walker Monroy MD [address] [place] [address] Referring PhysicianNeurolog06/30/23 Farhad Harper MD [address] [place] [address] Referring PhysicianCardiology06/30/23 Shannen Velazquze RN [address] [place] [address] Registered NurseFamily Medicine11/09/23documented as of this encounter
--- OUTSIDE RECORDS SUMMARY | 2025-03-25 11:11 | XMS_ITS | Encounter Summary ---
Author Organization [facility] Address [address] [place] [address] Care Team Providers Care Supervisory Aide Name Role Phone Grayson Espitia MD Primary Care Provider [phone] Walker Monroy MD Unavailable Farhad Harper MD Unavailable [phone] Shannen Velazquez RN Unavailable [phone] Grayson Espitia MD Unavailable [phone] Reason for Visit * ReasonOnset DateCommentsCare Cmwqxdhrnbkh13/20/2025 Encounter Details DateTypeDepartmentCare Team (Latest Contact Info)Tkcianuplka44/20/2025Telephone [facility] [address] [address] Pauly Huber, ALEC Care Coordination Social History Tobacco UseTypesPacks/DayYears UsedDateSmoking Tobacco: NeverSmokeless Tobacco: NeverAlcohol UseStandard Drinks/WeekCommentsYes1 (1 standard drink = 0.6 oz pure alcohol)Caffeine: 2-4 cupsSocial Connection and Isolation PanelAnswerDate RecordedIn a typical week, how many times do you talk on the phone with family, friends, or neighbors?More than three times a week09/05/2023How often do you get together with friends or relatives?Once a week09/05/2023How often do you attend hindu or pentecostalism services?More than 4 times per year09/05/2023o you belong to any clubs or organizations such as hindu groups, unions, fraternal or athletic groups, or school groups?Yes09/05/2023How often do you attend meetings of the clubs or organizations you belong to?More than 4 times per year09/05/2023 Are you , , , , never , or living with a partner?Fppgngq5609/05/2023UDIT-CAnswerDate RecordedQ1: How often do you have a [...] hard at all09/05/2023HQ-2AnswerDate RecordedPatient Health Questionnaire-2 Score1 03/05/2025[facility] - Occupational Stress QuestionnaireAnswerDate RecordedDo you feel stress - tense, restless, nervous, or anxious, or unable to sleep at night because yourmind is troubled all the time - these days?To some grctey2909/05/2023Exercise Vital SignAnswerDate Recorded On average, how many [...] highest degree you have received?Some college, no [id number] CommentsNoSex and Gender InformationValueDate RecordedSex Assigned at BirthNot on fileLegal IztZbocbd09/15/2023 6:51 PM EDTGender IdentityNot on fileSexual OrientationNot on fileOccupationIndustryJob Start DateJob End DateRetiredNot on fileNot on fileNot on filedocumented as of this encounter Miscellaneous Notes * Telephone Encounter - Pauly Huber MA - 03/11/2025 11:11 AM EDT Copied from : this is Howard Mcclain. gave her some pills for urinary tract infection. But it does not seem to be helping. I do not know if you need an actual sample to define it better or what. I do not know, but just just give me a call at [phone]. Thank you and have a blessed day by now. Called and spoke with Howard. I advised him that with Eh out of office today, he should take Kaetlyn to to have a UA done with culture. I advised him that he should take the bottle from the antibiotic rx so they know what she has tried and failed. documented in this encounter Plan of Treatment DateTypeDepartmentCare Team (Latest Contact Info)Vjthrtbiuso04/16/2026 1:05 PM EDTOffice Visit [facility] [place] [facility] [address] [place] [address] Lula Gasca MD [address] [place] [address] documented as of this encounter Visit Diagnoses Not on filedocumented in this encounter Additional Health Concerns AssessmentNoted TimePHQ-9 Depression Total Score: 2:00 PM EST documented as of this encounter Care Teams Team MemberRelationshipSpecialtyStart DateEnd Date Grayson Espitia MD [address] [place] [address] PCP - GeneralFamily Medicine10/12/22 Grayson Espitia MD [address] [place] [address] PCP - Medical [place]05/23/2511 Walker Monroy MD [address] [place] [address] Referring PhysicianNeurolog06/30/23 Farhad Harper MD [address] [place] [address] Referring PhysicianCardiology06/30/23 Shannen Velazquez, ROGE [address] [place], [place] [address] Registered NurseFamily Medicine11/09/23documented as of this encounter
[2025-03-25 11:50] LABS: Hematocrit 35.4 % (36.0-48.0); Hemoglobin 11.5 g/dL (12.0-16.0); Mean Corpuscular HGB Conc 32.5 g/dL (29.9-35.2); Mean Corpuscular Hemoglobin 28.8 pg (26.7-34.0); Mean Corpuscular Volume 88.5 fL (81.0-99.0); Platelet Count 259 10^3/uL (150-450); Red Blood Count 4.00 10^6/uL (4.20-5.40); White Blood Count 8.4 10^3/uL (4.0-11.0)
[2025-03-25 11:53] LABS: Protein Creatinine Ratio Urine 0.54; Total Protein Urine Random 24.0 mg/dL (<=11.9)
[2025-03-25 12:01] LABS: Albumin Level 3.5 g/dL (3.4-5.0); Anion Gap 9.4; Blood Urea Nitrogen 31.0 mg/dL (7.0-18.0); Calcium 9.1 mg/dL (8.5-10.1); Carbon Dioxide 27.6 mmol/L (21.0-32.0); Chloride 106 mmol/L (98-107); Estimated GFR (African America 39 (>=60 mL/min/1.73m^2); Estimated GFR (Non-African Ame 32 (>=60 mL/min/1.73m^2); Glucose 123 mg/dL (74-106); Magnesium 2.0 mg/dL (1.8-2.4); Potassium 4.0 mmol/L (3.5-5.1); Sodium 139 mmol/L (136-145); Uric Acid 6.5 mg/dL (2.6-6.0)
[2025-03-25 12:26] LABS: Iron 54.0 ug/dL (50.0-170.0); Percent Iron Saturation 17.2 %; Total Iron Binding Capacity 314.0 ug/dL (250.0-450.0)
[2025-03-25 12:40] LABS: Ferritin 49.0 ng/mL (8.0-252.0)
[2025-03-25 12:58] LABS: Glucose Urine UA NEGATIVE (NEGATIVE)
[2025-03-25 13:14] LABS: Cast Seen? NONE SEEN #/LPF (NONE SEEN); Crystals Seen? None Seen #/HPF (None Seen)
== END 2025-03-25 10:54 | disposition home or self-care (01) ==
PROVIDERS: PCP Family Medicine; Visit Provider Internal Medicine
DX: I12.9 Hypertensive chronic kidney disease with stage 1 through stage 4 chronic kidney disease, or unspecified chronic kidney disease (principal); N18.9 Chronic kidney disease, unspecified; D63.1 Anemia in chronic kidney disease; R82.71 Bacteriuria; E78.5 Hyperlipidemia, unspecified; N25.81 Secondary hyperparathyroidism of renal origin
CPT/HCPCS: 36415; 80069; 81001; 82306; 82570; 82728; 83540; 83550; 83735; 83970; 84156; 84550; 85027

== ENCOUNTER 2025-05-20 10:12 | Outpatient (OUT) | payer MEDICARE, SELFPAY ==
--- OUTSIDE RECORDS SUMMARY | 2025-05-20 10:15 | XMS_ITS | Encounter Summary ---
Author Organization [facility] Address [address] [place] [address] Care Team Providers Care Aircraft Inspection Record Clerk Name Role Phone Grayson Espitia MD Primary Care Provider [phone] Walker Monroy MD Unavailable Farhad Harper MD Unavailable [phone] Shannen Velazquez RN Unavailable [phone] Grayson Espitia MD Unavailable [phone] Encounter Details DateTypeDepartmentCare Team (Latest Contact Info)Mbvbntmyxmg36/12/2025Patient Outreach [facility] [address] [place] [phone] Shannen Velazquez, RN [address] [place] [address] Social History Tobacco UseTypesPacks/DayYears UsedDateSmoking Tobacco: NeverSmokeless Tobacco: NeverAlcohol UseStandard Drinks/WeekCommentsYes1 (1 standard drink = 0.6 oz pure alcohol)Caffeine: 2-4 cupsSocial Connection and Isolation PanelAnswerDate RecordedIn a typical week, how many times do you talk on the phone with family, friends, or neighbors?More than three times a week09/05/2023How often do you get together with friends or relatives?Once a week09/05/2023How often do you attend restoration or religion services?More than 4 times per year09/05/2023o you belong to any clubs or organizations such as restoration groups, unions, fraternal or athletic groups, or school groups?Yes09/05/2023How often do you attend meetings of the clubs or organizations you belong to?More than 4 times per year09/05/2023 Are you , , , , never , or living with a partner?Iyylwjc3309/05/2023UDIT-CAnswerDate RecordedQ1: How often do you have a [...] hard at all09/05/2023HQ-2AnswerDate RecordedPatient Health Questionnaire-2 Score1 03/05/2025[facility] [place] [facility] - Occupational Stress QuestionnaireAnswerDate RecordedDo you feel stress - tense, restless, nervous, or anxious, or unable to sleep at night because yourmind is troubled all the time - these days?To some mzgboq1609/05/2023Exercise Vital SignAnswerDate Recorded On average, how many [...] highest degree you have received?Some college, no [id number] CommentsNoSex and Gender InformationValueDate RecordedSex Assigned at BirthNot on fileLegal PrbNhpara08/15/2023 6:51 PM EDTGender IdentityNot on fileSexual OrientationNot on fileOccupationIndustryJob Start DateJob End DateRetiredNot on fileNot on fileNot on filedocumented as of this encounter Progress Notes * Shannen Velazquez RN - 05/03/2025 11:03 AM EST Chart reviewed. Called pt's , Delmar for monthly monitor call. , requested call back <May 03, 2025, 15:52 - Shannen Velazquez RN> Howard returned call to CM. Howard states pt is better since reduction in medications. States she is talking more, doing more. He is pleased. Discussed appt with Dr Womack, will request OV notes for PCP chart. Discussed upcoming appt with Dr Harper 05/30 at 11am and PCP on 06/05 at 2 pm. States pt has to have an EKG done at [facility] and will have labs done on 05/20. States he take pt to do labs for PCP on 05/21. Discussed that CM can fax labs to [facility] andshe can have labs done all together. They will fax PCP lab results to him. Howard is agreeable states I didn't think about doing that . States pt is eating more. Feels she is doing well. No questions or concerns at this time. Encouraged to call when needs arise. <May 03, 2025, 16:11 - Shannen Velazquez RN> faxed labs to [facility] for appt in [place]. <May 03, 2025, 16:15 - Shannen Velazquez RN> faxed Dr Womack for last ov notes. <May 06, 2025, 08:28 - Shannen Velazquez RN> labs were faxed successfully to [facility]. documented in this encounter Plan of Treatment DateTypeDepartmentCare Team (Latest Contact Info)Lrblumwgrpm30/30/2025 3:30 PM ESTOffice Visit [facility] [address] [place] [address] Grayson Espitia MD [address] [place] [address] (Fax) 06/05/2025 2:00 PM ESTOffice Visit [facility] [address] [place] [address] Grayson Espitia MD [address] [place] [address] (Fax) 07/08/2025 2:30 PM ESTOffice Visit [facility] [address] [place] [address] Grayson Espitia MD [address] [place] [address] (Fax) 09/04/2025 2:00 PM EDTOffice Visit [facility] [address] [place] [address] Grayson Espitia MD [address] [place] [address] (Fax) 11/05/2025 1:05 PM EDTOffice Visit [facility] [address] [place] [address] Lula Gasca MD [address] [place] [address] documented as of this encounter Visit Diagnoses Diagnosis Chronic diastolic congestive heart failure, NYHA class 1 (HCC)- Primary Chronic kidney disease, stage 4 (severe) (HCC) Benign essential hypertension Essential hypertension, benign Diabetic nephropathy associated with type 2 diabetes mellitus (HCC) documented in this encounter Additional Health Concerns AssessmentNoted TimePHQ-9 Depression Total Score: 2:00 PM EST documented as of this encounter Care Teams Team MemberRelationshipSpecialtyStart DateEnd Date Grayson Espitia MD [address] [place] [address] PCP - GeneralFamily Medicine10/12/22 Grayson Espitia MD [address] [place] [address] PCP - Medical [place] CT/06/17 Walker Monroy MD [address] [place] [address] Referring PhysicianNeurolog06/30/23 Farhad Harper MD [address] [place] [address] Referring PhysicianCardiology2 Shannen Velazquez, ROGE [address] [place] [address] Registered NurseFamily Medicine11/09/23documented as of this encounter
--- OUTSIDE RECORDS SUMMARY | 2025-05-20 10:15 | XMS_ITS | Clinical Summary ---
Author Organization [facility] Address [address] [place] [address] Care Team Providers Care Torch Operator Name Role Phone Unavailable Primary Care Provider Unavailabl e Social History Tobacco UseTypesPacks/DayYears UsedDateSmoking Tobacco: Never AssessedUT Safety & EnvironmentAnswerDate RecordedFear of Current or Ex-PartnerNot on file 07/14/2023Emotionally AbusedNot on file07/14/2023hysically AbusedNot on file 07/14/2023Sexually AbusedNot on file4Physically or Sexually AbusedNot on file07/14/2023CommentsUnknownSex and Gender InformationValueDate RecordedSex Assigned at BirthNot on fileLegal QmlYmspfo81/29/2022 10:47 PM EDT Gender IdentityNot on fileSexual OrientationNot on file Plan of Treatment Health MaintenanceDue DateLast DoneCommentsMedicare Annual Wellness (AWV) 1948Depression Qhfrjruvy17/19/1961Adult Veinuwi3712/08/1970Pneumococcal Vaccine: 50+ Years (1 of 1 - PCV)1998Zoster Vaccines (1 of 2)1998 Fall Risk Eovujqajo92/19/2014COVID-19 Vaccine (1 - 2024- season)2025 Influenza Vaccine [...] complete this topic Insurance * Guarantor: Eleanor cMclain TypeRelation to PatientDate of BirthPhone Billing AddressPersonal/McqjofKsac73/[birth year][address] [address]
--- OUTSIDE RECORDS SUMMARY | 2025-05-20 10:15 | XMS_ITS | Encounter Summary ---
Author Organization [facility] Address [address] [place] [address] Care Team Providers Care Windows Deployment Technician Name Role Phone Grayson Espitia MD Primary Care Provider [phone] Walker Monroy MD Unavailable Farhad Harper MD Unavailable [phone] Shannen Velazquez RN Unavailable [phone] Grayson Espitia MD Unavailable [phone] Encounter Details DateTypeDepartmentCare Team (Latest Contact Info)Dlvhkdmodzu78/22/2025Patient Outreach [facility] [address] [place] [phone] Shannen Velazquez, ROGE [address] [place] [address] Social History Tobacco UseTypesPacks/DayYears UsedDateSmoking Tobacco: NeverSmokeless Tobacco: NeverAlcohol UseStandard Drinks/WeekCommentsYes1 (1 standard drink = 0.6 oz pure alcohol)Caffeine: 2-4 cupsSocial Connection and Isolation PanelAnswerDate RecordedIn a typical week, how many times do you talk on the phone with family, friends, or neighbors?More than three times a week09/05/2023How often do you get together with friends or relatives?Once a week09/05/2023How often do you attend pentecostalism or taoism services?More than 4 times per year09/05/2023o you belong to any clubs or organizations such as pentecostalism groups, unions, fraternal or athletic groups, or school groups?Yes09/05/2023How often do you attend meetings of the clubs or organizations you belong to?More than 4 times per year09/05/2023 Are you , , , , never , or living with a partner?Oykrase3509/05/2023UDIT-CAnswerDate RecordedQ1: How often do you have a [...] hard at all09/05/2023HQ-2AnswerDate RecordedPatient Health Questionnaire-2 Score1 03/05/2025[facility] [place] [facility] - Occupational Stress QuestionnaireAnswerDate RecordedDo you feel stress - tense, restless, nervous, or anxious, or unable to sleep at night because yourmind is troubled all the time - these days?To some wxrqbc7609/05/2023Exercise Vital SignAnswerDate Recorded On average, how many [...] highest degree you have received?Some college, no [id number] CommentsNoSex and Gender InformationValueDate RecordedSex Assigned at BirthNot on fileLegal KhwOafofv70/15/2023 6:51 PM EDTGender IdentityNot on fileSexual OrientationNot on fileOccupationIndustryJob Start DateJob End DateRetiredNot on fileNot on fileNot on filedocumented as of this encounter Progress Notes * Shannen Velazquez RN - 05/13/2025 1:39 PM EST Howard LM on office VM. Regarding need for Rx for Levothyroxine. Office forwarded message to . <May 13, 2025, 16:15 - Shannen Velazquez RN>Called Howard, notified that rx was sent in fora 30 day supply Pt states that pt has a finger nail on her left hand that the nail is curving into the skin. Scheduled appt with PCP on 05/21 at 3:30 pm. Howard is unsure if there is redness. States it is sensitive if touched documented in this encounter Plan of Treatment DateTypeDepartmentCare Team (Latest Contact Info)Evpxqsbqnig86/30/2025 3:30 PM ESTOffice Visit [facility] [address] [facility] [address] [place] [address] Grayson Espitia MD [address] [facility] [address] [place] [address] (Fax) 06/05/2025 2:00 PM ESTOffice Visit [facility] [address] [place] [address] Grayson Espitia MD [address] [place] [address] (Fax) 07/08/2025 2:30 PM ESTOffice Visit [facility] [address] [place] [address] Grayson Espitia MD [address] [place] [address] (Fax) 09/04/2025 2:00 PM EDTOffice Visit [facility] [address] [place] [address] Grayson Espitia MD [address] [place] [address] (Fax) 11/05/2025 1:05 PM EDTOffice Visit [facility] [place] [facility] [address] [place] [address] Lula Gasca MD [address] [place] [address] documented as of this encounter Visit Diagnoses Diagnosis Acquired hypothyroidism- Primary Unspecified hypothyroidism Benign essential hypertension Essential hypertension, benign documented in this encounter Additional Health Concerns AssessmentNoted TimePHQ-9 Depression Total Score: 2:00 PM EST documented as of this encounter Care Teams Team MemberRelationshipSpecialtyStart DateEnd Date Grayson Espitia MD [address] [place] [address] (Fax) PCP - GeneralFamily Medicine10/12/22 Grayson Espitia MD [address] [place] [address] PCP - Medical [place] MA//06/17 Walker Monroy MD [address] [place] [address] Referring PhysicianNeurolog06/30/23 Farhad Harper MD [address] [place] [address] Referring PhysicianCardiology2 Shannen Velazquez, ROGE [address] [facility] [address] [place] [address] Registered NurseFamily Medicine11/09/23documented as of this encounter
--- OUTSIDE RECORDS SUMMARY | 2025-05-20 10:15 | XMS_ITS | Encounter Summary ---
Author Organization [facility] Address [address] [place] [address] Care Team Providers Care Director Informatics Name Role Phone Grayson Espitia MD Primary Care Provider [phone] Walker Monroy MD Unavailable Farhad Harper MD Unavailable [phone] Shannen Velazquez RN Unavailable [phone] Grayson Espitia MD Unavailable [phone] Reason for Visit * ReasonOnset DateCommentsCare Tmafvjtuibau07/22/2025 Encounter Details DateTypeDepartmentCare Team (Latest Contact Info)Migyqycytzf95/22/2025Telephone [facility] [address] [phone] Pauly Huber MA Care Coordination Social History Tobacco UseTypesPacks/DayYears UsedDateSmoking [...] relatives?Once a week09/05/2023How often do you attend baptist or mosque services?More than 4 times per year09/05/2023o you belong to any clubs or organizations such as baptist groups, unions, fraternal or athletic groups, or school groups?Yes09/05/2023How often do you attend meetings of the clubs or organizations you belong to?More than 4 times per year09/05/2023 Are you , , , , never , or living with a partner?Elkaqhx4209/05/2023UDIT-CAnswerDate RecordedQ1: How often do you have a [...] hard at all09/05/2023HQ-2AnswerDate RecordedPatient Health Questionnaire-2 Score1 03/05/2025[facility] [place] - Occupational Stress QuestionnaireAnswerDate RecordedDo you feel stress - tense, restless, nervous, or anxious, or unable to sleep at night because yourmind is troubled all the time - these days?To some tvzxuj3709/05/2023Exercise Vital SignAnswerDate Recorded On average, how many [...] highest degree you have received?Some college, no [id number] CommentsNoSex and Gender InformationValueDate RecordedSex Assigned at BirthNot on fileLegal OkaPhtxfc34/15/2023 6:51 PM EDTGender IdentityNot on fileSexual OrientationNot on fileOccupationIndustryJob Start DateJob End DateRetiredNot on fileNot on fileNot on filedocumented as of this encounter Miscellaneous Notes * Telephone Encounter - Pauly Huber MA - 05/13/2025 10:31 AM EST Copied from August, this is Howard [place]. I have a prescription for Katelyn that I need to get refilled. It is not critical that I have to write today or anything like that, but it is just my le toxin and it is the 88 mg or [facility]. And I do not have any refills. So you can get that over to the and have him send a new script in. That would be fantastic. If you need to get back, hold of me, you can reach me at [phone]. Thank you and have a blessed day by now. documented in this encounter Plan of Treatment DateTypeDepartmentCare Team (Latest Contact Info)Yaruvlwxnqk99/30/2025 3:30 PM ESTOffice Visit [facility] [address] [facility] 100 [place] [address] Grayson Espitia MD [address] [facility] 100 [place] [address] (Fax) 06/05/2025 2:00 PM ESTOffice Visit [facility] [address] [place] [address] Grayson Espitia MD [address] [place] [address] (Fax) 07/08/2025 2:30 PM ESTOffice Visit [facility] [address] [place] [address] Grayson Espitia MD [address] [place] [address] (Fax) 09/04/2025 2:00 PM EDTOffice Visit [facility] [address] [facility] [address] [facility] [address] [place] [address] Grayson Espitia MD [address] [place] [address] (Fax) 11/05/2025 1:05 PM EDTOffice Visit [facility] [address] [place] [phone] Lula Gasca MD [address] [place] [address] documented as of this encounter Visit Diagnoses Not on filedocumented in this encounter Additional Health Concerns AssessmentNoted TimePHQ-9 Depression Total Score: 2:00 PM EST documented as of this encounter Care Teams Team MemberRelationshipSpecialtyStart DateEnd Date Grayson Espitia MD [address] [place] [address] (Fax) PCP - GeneralFamily Medicine10/12/22 Grayson Espitia MD [address] [place] [address] PCP - [facility] [place]/ Walker Monroy MD [address] [place] [address] Referring PhysicianNeurolog06/30/23 Farhad Harper MD [address] [place] [address] Referring PhysicianCardiology2 Shannen Velazquez, ROGE [address] [facility] [address] [place] [address] Registered NurseFamily Medicine11/09/23documented as of this encounter
--- OUTSIDE RECORDS SUMMARY | 2025-05-20 10:16 | XMS_ITS | Clinical Summary ---
Author Organization [facility] Address [address] [place] [address] Care Team Providers Care Public Aid Eligibility Assistant Name Role Phone Grayson Espitia MD Primary Care Provider Walker Monroy MD Unavailable Farhad Harper MD Unavailable [phone] Shannen Velazquez RN Unavailable [phone] Grayson Espitia MD Unavailable [phone] Allergies Active AllergyReactionsCriticalityNoted DateCommentsLatexAnaphylaxisHigh 05/10/2019 Other Reaction(s): [...] mg in the evening. Take with meals.Active glucose blood (OneTouch Ultra) test strip Indications:Type 2 diabetes mellitus with both eyes affected by mild nonproliferative retinopathy without macular edema, without long-term current use of insulin ([facility])1 each by Other route Daily 100 each [id number]//[id number]/6Active Lancets (OneTouch Delica Plus Oxyxpq37A) [facility] Indications:Diabetic nephropathy associated with type 2 diabetes mellitus ([facility]), Stage 3 chronic kidney disease due to type 2 diabetes mellitus ([facility])1 Lancet Daily 100 each /6Active dilTIAZem CD (Cardizem CD) 180 MG 24 hr capsule Indications:Primary hypertensionTake 1 capsule (180 mg) by mouth Daily 90 capsule 6Active furosemide (Lasix) 20 MG tablet Indications:Primary hypertension,Chronic diastolic congestive heart failure, NYHA class 1 ([facility])2 tablets every am (= 40 mg) and 1 tablet (=20 mg) daily before supper 90 tablet 5Active ferrous sulfate 325 (65 Fe) MG tablet Indications:Anemia due to stage 3b chronic kidney disease ([facility])Take 1 tablet (325 mg) by mouth every other day 45 tablet /6Active donepezil (Aricept) 10 MG tablet Indications:Chronic organic brain syndromeTake 2 tablets (20 mg) by mouth at bedtime 180 tablet /ctive DULoxetine (Cymbalta) [address] capsule Indications:Anxiety associated with depressionTake 2 capsules (40 mg) by mouth Daily Do not crush or chew. 60 capsule ctive levothyroxine (Synthroid, Levoxyl) 88 MCG tablet Indications:Acquired hypothyroidismTake 1 tablet (88 mcg) by mouth Daily 30 tablet /6Active levothyroxine (Synthroid, Levoxyl) 88 MCG tablet Indications:Acquired hypothyroidismTake 1 tablet (88 mcg) by mouth Daily 90 tablet Discontinued(Reorder) Active Problems ProblemNoted DateDiagnosed DateChronic /14/2025Secondary uuvapxmvqruppeawmwa54/09/2024Stage 3b chronic kidney duoihmp1007/12/2023nxiety associated with hiuyllmzxw96/18/2023Stage 3 chronic kidney disease due to type 2 diabetes cdpqdmci99/14/2023ge-related nuclear cataract of both eyes10/25/2022 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 Basal ganglia bsodysgdfk62/05/2023Ischemic fzurin0010/25/2022oronary artery disease involving [place] coronary artery of [place] heart without angina pectoris 10/25/2022nemia due to stage 3b chronic kidney fyhboto5910/25/2022or pulmonale, jstomeg0210/25/2022iastolic congestive heart failure, NYHA class H/O: CVA (cerebrovascular accident)10/25/2022History of aortic valve replacement 10/25/2022Hx of CABG10/25/2022Ischemic nephropathy with hypertensive mncfpwtmixoxekm31/05/7955Hkehwixkmapq12/05/2023Left carotid artery stenosis 10/25/2022LVH (left ventricular hypertrophy)10/25/20223439Xsvbuwhubmoqke39/05/2023 Moderate episode of recurrent major depressive bbqbtcta59/05/2023Neurogenic orthostatic /05/2023Nocturnal czhguwfbe53/05/2023aroxysmal atrial vwekieckybds53/05/7411Bcsrnehdwxucykan48/05/2023ersistent disorder of initiating or maintaining sleep10/25/2022rimary osteoarthritis of left knee 10/25/2022Sequela, post-swnejv2110/25/2022Vascular dementia with behavior tmlpfzremmz88/05/2023History of ccwgdnn6410/20/20223415Xawoof52/31/2023Other specified disorders of bone density and structure, right thigh06/08/2021History of basal cell carcinoma (BCC)11/03/2020enal artery neacipth34/21/2021Chronic organic brain tcayward72/09/2021Controlled substance agreement riedbw9205/19/2020Acquired wgijpdanedtntt33/23/2020Chronic fatigue mkrwsgry00/22/2020Postherpetic neuralgia 10/29/2019Idiopathic sleep related nonobstructive alveolar hypoventilation 10/04/2019Persistent cognitive zuyaemgoxh58/14/0132Ldqltztylmda69/14/2020 Gastroesophageal reflux clhceek5308/27/2019Hemiplegia of nondominant side as late effect of cerebrovascular lnzdwsf1608/20/2019Slow transit zcmkqdkofcua02/30/2020 Cervical stenosis of spinal canal08/02/2019Abdominal aortic atherosclerosis 07/02/2019Thoracic aorta /10/2020Overweight (BMI 25.0-29.9) 04/11/2019Vitamin D lspvgjtevi73/20/2267Ywknbjakokavad88/30/2019Vitreous degeneration of both eyes05/04/2018Nonexudative age-related macular degeneration, bilateral, early dry stage08/25/2017Nuclear senile cataract 08/25/20173138Fqaatkvpagnf38/01/2018Surgical xrcoasqzv47/19/2017Diabetic renal zcgzxws2203/07/2017Mild nonproliferative diabetic retinopathy associated with type 2 diabetes svwtitnv14/30/2017Chronic allergic tegzvraw21/16/2017Mitral valve vbayqlta22/10/2016Systolic nuqhfi3208/27/2015Benign essential hypertension 03/05/20154793Oanlwfalqqc22/14/2015Euthyroid sick kvgpqxou84/12/2015Long QT syndrome 03/03/20156033Eooqpdbzuchcopcl38/12/2015Ischemic vascular ttfbohz8811/23/1904 Resolved Problems ProblemNoted DateDiagnosed DateResolved GxgtGyzoqcilb83Low serum uacyrco71/bnormality of mcpcyru80/cute kidney injury superimposed on chronic kidney zzqmnmi15Herpes zoster without foeitlbdfzgl09/05/202302/Generalized lpzayqxx29/31/2023 02/25/20254208Jsnyrkjpv90Hyperglycemia due to type 2 diabetes maajidru39/Multi-infarct dementia with ycxdjfgo48/11/2021 4Retinal hemorrhage, rfmuwrwcr97/10/2024Stage 4 chronic kidney pzyryka70/Late effects of cerebrovascular disease /cute postoperative respiratory impujqf22/ Fall/3Acute cerebral ufmitzehxj43/15/202001/5CAD, multiple onhoyp15/ Encounters DateTypeDepartmentCare DjihPpxxniksgts30/22/2025Patient Outreach [facility] [address] [place] [address] Shannen Velazquez RN 05/13/2025Telephone [facility] [address] [facility] [address] [facility] [address] [place] [address] Pauly Huber MA Care Auvpwndfzkpc58/12/2025Patient Outreach [facility] [address] [place] [address] Shannen Velazquez RN 04/15/2025Telephone [facility] [address] [place] [address] [facility] [address] [place] [address] Grayson Espitia MD Care Hbioboagjzby56/10/2025Telephone [facility] [address] [place] [address] Shannen Velazquez RN 03/26/2025Patient Outreach [facility] [address] [place] [address] Shannen Velazquez RN 03/25/2025linisync Result Encounter [facility] External Department Unsolicited Provider, Generic External Data 03/13/2025Patient Outreach [facility] [address] [place] [address] Shannen Velazquez, ROGE 03/12/2025Patient Outreach [facility] [address] [place] [address] Shannen Velazquez, ROGE 03/11/2025Telephone [address] [place] [address] Cecile Pauly [place] Care Shhosywsxuiy80/15/2025Patient Outreach [facility] [address] [place] [address] Shannen Velazquez, ROEG 03/05/2025 2:30 PM EDTOffice Visit [address] [place] [address] Grayson Espitia MD Primary hypertension (Primary Dx); Mixed hyperlipidemia; Hypokalemia; Type 2 diabetes mellitus with stage 3b chronic kidney disease, without long-term current use of insulin (HCC); Anemia due to stage 3b chronic kidney disease ([facility]); Microalbuminuria; Paroxysmal atrial fibrillation (HCC); Chronic diastolic congestive heart failure, NYHA class 1 ([facility]); Acute cystitis without hematuria; Chronic pruritus; Kwtomsatuick00/14/2025Bamboo flowsheet [place] [address] [place] [address] Grayson Espitia MD 03/05/20257789Yibaki61/09/2025Telephone [address] [place] [address] Cecile August, [place] Care Mfdzcpwyewcs22/29/2025Patient Outreach [facility] [address] [place] [address] Shannen Velazquez, RN from Last 3 Months Immunizations ImmunizationAdministration DatesNext DueInfluenza, High Dose Seasonal, Preservative Free06/23/2021,03/25/2018Influenza, injectable, quadrivalent, preservative free03/01/2020,03/25/2018,03/01/2016Influenza, recombinant, quadrivalent, injectable, preservative free02/28/2020Moderna Bivalent Booster Mekscnjmmmr08/28/2022Moderna SARS-CoV-2 Lwecwxqqsuh70/22/2022neumococcal Conjugate PCV 13012/20/20164780HKSU-LPM-7 (COVID-19) vaccine, mRNA, spike protein, LNP, bivalent, PF03/19/2022Zoster, Ocrjclimpvi00/01/2024,06/24/2023 Family History Medical HistoryRelationNameCommentsCancerFatherAlcohol abuseMotherDiabetesMother StrokeMotherNo Known [...] relatives?Once a week09/05/2023How often do you attend moravian or confucianism services?More than 4 times per year09/05/2023o you belong to any clubs or organizations such as moravian groups, unions, fraternal or athletic groups, or school groups?Yes09/05/2023How often do you attend meetings of the clubs or organizations you belong to?More than 4 times per year09/05/2023 Are you , , , , never , or living with a partner?Sczxknb5809/05/2023UDIT-CAnswerDate RecordedQ1: How often do you have a [...] hard at all09/05/2023HQ-2AnswerDate RecordedPatient Health Questionnaire-2 Score1 03/05/2025[facility] [place] [facility] - Occupational Stress QuestionnaireAnswerDate RecordedDo you feel stress - tense, restless, nervous, or anxious, or unable to sleep at night because yourmind is troubled all the time - these days?To some pppjhp3709/05/2023Exercise Vital SignAnswerDate Recorded On average, how many [...] highest degree you have received?Some college, no tnssol8211/30/2022 CommentsNoSex and Gender InformationValueDate RecordedSex Assigned at BirthNot on fileLegal YznPrhzrr98/15/2023 6:51 PM EDTGender IdentityNot on fileSexual OrientationNot on fileOccupationIndustryJob Start DateJob End DateRetiredNot on fileNot on fileNot on file Last Filed Vital Signs Vital SignReadingTime TakenCommentsBlood Zyrbqqgl280/7603/05/2025 2:33 PM EDT Hvqwg069703/05/2025 2:33 PM EDTTemperature--Respiratory Rate--Oxygen Caonjgbiqq16% 03/05/2025 2:33 PM EDTInhaled Oxygen Concentration--Zqnskk39.4 kg (142 lb) 03/05/2025 2:33 PM KOWTytfen401.8 cm (5' 2.5 )03/05/2025 2:33 PM EDTBody Mass Index25.561 2:33 PM EDT Plan of Treatment DateTypeDepartmentCare Team (Latest Contact Info)Lewvrpxcwsz57/30/2025 3:30 PM ESTOffice Visit [address] [place] [address] Grayson Espitia MD 112 [facility] 100 [place] [address] (Fax) 06/05/2025 2:00 PM ESTOffice Visit [address]OM[address] 112 [facility] 100 [place] [address] Grayson Espitia MD 112 [facility] 100 [place] [address] (Fax) 07/08/2025 2:30 PM ESTOffice Visit [address]OM[address] 112 [facility] 100 [place] [address] Grayson Espitia MD 112 [facility] 100 [place] [address] (Fax) 09/04/2025 2:00 PM EDTOffice Visit [address] [facility] [address] [place] [address] Grayson Espitia MD 112 [facility] 100 [place] [address] (Fax) 11/05/2025 1:05 PM EDTOffice Visit [facility] [place] [facility] [address] [place] [address] Lula Gasca MD [address] [place] [address] Health MaintenanceDue DateLast DoneCommentsDiabetes: Urine Protein Screening 5106/10/2023, 07/25/2022, 12/10/2021, Additional history existsDiabetes: Retinopathy Qiqtxzycp49, 07/07/2023, 06/23/2023, Additional history existsPneumococcal Vaccine: 65+ VldqwTgfkzcxaimkz98/31/2017Colonoscopy Wvweoyemykwg85/18/2021olorectal Cancer ScreeningDiscontinuedMammogram Apxwqlolmkqq96/04/2022, 05/26/2021Influenza HlwwgdrOtuvfnwsygfm04/01/2022, 03/01/2020, 02/28/2020, Additional history existsDiabetes: Hemoglobin A1C Cjyehynekqog43/06/2025, 05/24/2024, 03/03/2023, Additional history existsCT ColonographyDiscontinuedFIT-DNADiscontinuedFITDiscontinuedFOBTDiscontinued SigmoidoscopyDiscontinued Procedures Procedure NamePriorityDate/TimeAssociated DiagnosisCommentsHMHP PTH, XRPZSCFYKTDNHWQlyhulr56/03/2025 11:23 AM EST TBH VITAMIN D 25 HZOgdymyg62/03/2025 11:23 AM EST [facility] XJPXOJNTHcofnrh80/03/2025 11:23 AM EST [facility] BZEKHsdcdub68/03/2025 11:23 AM EST HMHP CBC WITH PLATELET NO YYHQRWLZVPUSBgcgrfc43/03/2025 11:23 AM EST ALL MZMOGORIMBoyhgww36/03/2025 11:23 AM EST ALL URIC RVRFYkvlvvm01/03/2025 11:23 AM EST ALL RENAL FUNCTION NECCQHdrsaue33/03/2025 11:23 AM EST HMHP URINALYSIS, WITH FDVUXVXMUZCRndhncu82/03/2025 11:11 AM EST TBH URINE T PROTEIN CREAT RLIUAIifdbrl99/03/2025 11:11 AM EST HEMOGLOBIN U5BYzwfqcu67/06/2025 10:58 AM EDT Type 2 diabetes mellitus with hyperglycemia, without long-term current use of insulin (HCC) LIPID HZVDEKcqtpxm19/06/2025 10:58 AM EDT Mixed hyperlipidemia COMPREHENSIVE METABOLIC EEKSOTccsuex40/06/2025 10:58 AM EDT Primary hypertension Hypokalemia Type 2 diabetes mellitus with stage 4 chronic kidney disease, without long-term current use of insulin (HCC) DIABETIC RETINOPATHY SCREENING - OU - BOTH UOAWYqykmoe88/14/2025 8:35 AM EST MICROALBUMIN, URINE NXAXBUuhpvro84/21/2022 12:00 PM EDT BI MAMMOGRAM SCREENING UMWUORPNKSfumatf69/04/2022 12:00 PM EST Type 2 diabetes mellitus with diabetic chronic kidney disease (HCC) Mixed hyperlipidemia Hypomagnesemia Hypokalemia Long QT syndrome Slow transit constipation Encounter for screening for other disorder Essential (primary) hypertension Encounter for general adult medical examination without abnormal findings Stage 3 chronic kidney disease ([facility]) Vitamin D deficiency, unspecified Proteinuria, unspecified Encounter for screening for osteoporosis Insomnia, unspecified Allergic rhinitis, unspecified Gastro-esophageal reflux disease without esophagitis Other detention (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 Other postherpetic nervous system involvement Cardiomegaly Unspecified abnormal findings in urine Personal history of other malignant neoplasm of skin Sick-euthyroid syndrome Chronic fatigue, unspecified Hypothyroidism, 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 Idiopathic sleep related [...] screening mammogram for malignant neoplasm of breast EWHBSEMUWGKFxcmglz50/18/2021 12:00 PM EDT from Last 3 Months or Most Recently Relevant to Health Maintenance Results * [facility] VITAMIN D 25 [place] (03/25/2025 11:23 AM EST)ComponentValueRef RangeTest MethodAnalysis TimePerformed AtPathologist SignatureVITAMIN D81.0ng/mLTBH Comment: <20 ng/mL Vit D deficient 20-<30 ng/mL Vit D insufficient 30-100 ng/mL ??Vit D sufficient >100 ng/mL Potential Toxicity Specimen (Source)Anatomical Location / LateralityCollection Method / Volume Collection TimeReceived Time03/25/2025 11:23 AM EST03/25/2025 11:39 AM EST Narrative [facility] - 03/25/2025 12:43 PM EST Authorizing ProviderResult TypeResult StatusGeneric External Data Provider CLINISYNCFinal ResultPerforming OrganizationAddressCity/State/ZIP CodePhone Number [facility] * [facility] (03/25/2025 11:23 AM EST)ComponentValueRef RangeTest MethodAnalysis TimePerformed AtPathologist SignatureTBH IRON54.050.0 - 170.0 ug/dLTBHTBH TOTAL IRON BINDING LSREVXNE247.0250.0 - 450.0 ug/dLTBHTBH PERCENT IRON EBEZMFLMBQ74.2%TBHSpecimen (Source)Anatomical Location / Laterality Collection Method / VolumeCollection TimeReceived Time03/25/2025 11:23 AM EST 03/25/2025 11:39 AM EST Narrative CLINISYNC - 03/25/2025 12:29 PM EST Authorizing ProviderResult TypeResult StatusGeneric External Data Provider CLINISYNCFinal ResultPerforming OrganizationAddressCity/State/ZIP CodePhone Number [facility] * (ABNORMAL) [facility] PTH, INTRAOPERATIVE (03/25/2025 11:23 AM EST)ComponentValueRef RangeTest MethodAnalysis TimePerformed AtPathologist SignaturePTH, GVEVTO19(A) 15 - 65 pg/mLTBHComment: Performed at: ?? - [facility] [address] ??[id number] Grain Merchandiser: Jerrell Bautista PhD, Phone: ??[phone] Specimen (Source)Anatomical Location / LateralityCollection Method / Volume Collection TimeReceived Time03/25/2025 11:23 AM EST03/25/2025 11:39 AM EST Narrative CLINISYNC - 03/26/2025 11:08 AM EST Authorizing ProviderResult TypeResult StatusGeneric External Data Provider CLINISYNCFinal ResultPerforming OrganizationAddressty/State/ZIP CodePhone Number [facility] * (ABNORMAL) [facility] CBC WITH PLATELET NO DIFFERENTIAL (03/25/2025 11:23 AM EST) ComponentValueRef RangeTest MethodAnalysis TimePerformed AtPathologist SignatureTBH WBC8.44.0 - 11.0 10 3/uLTBHTBH RBC4.00(L)4.20 - 5.40 10 6/uLTBH TBH HGB11.5(L)12.0 - 16.0 g/dLTBHTBH HCT35.4(L)36.0 - 48.0 %TBHTBH MCV88.581.0 - 99.0 fLTBHTBH MCH28.826.7 - 34.0 pgTBHTBH MCHC32.529.9 - 35.2 g/dLTBHTBH RDW 12.211.0 - 15.0 %TBHTBH AHQ679331 - 450 10 3/uLTBHTBH MPV8.9(L)9.5 - 13.5 fL TBHSpecimen (Source)Anatomical Location / LateralityCollection Method / Volume Collection TimeReceived Time03/25/2025 11:23 AM EST03/25/2025 11:39 AM EST Narrative CLINISYNC - 03/25/2025 12:26 PM EST Authorizing ProviderResult TypeResult StatusGeneric External Data Provider CLINISYNCFinal ResultPerforming OrganizationAddressCity/State/ZIP CodePhone Number [facility] * [facility] FERRITIN (03/25/2025 11:23 AM EST)ComponentValueRef RangeTest Method Analysis TimePerformed AtPathologist DwkkyvuhfUSCFLOTE45.08.0 - 252.0 ng/mLTBH Specimen (Source)Anatomical Location / LateralityCollection Method / Volume Collection TimeReceived Time03/25/2025 11:23 AM EST03/25/2025 11:39 AM EST Narrative CLINISYNC - 03/25/2025 12:43 PM EST Authorizing ProviderResult TypeResult StatusGeneric External Data Provider CLINISYNCFinal ResultPerforming OrganizationAddressCity/State/ZIP CodePhone Number [facility] * (ABNORMAL) ALL URIC ACID (03/25/2025 11:23 AM EST)ComponentValueRef RangeTest MethodAnalysis TimePerformed AtPathologist SignatureURIC ACID6.5(H)2.6 - 6.0 mg/dLTBHSpecimen (Source)Anatomical Location / LateralityCollection Method / VolumeCollection TimeReceived Time03/25/2025 11:23 AM EST03/25/2025 11:39 AM EST Narrative CLINISYNC - 03/25/2025 12:07 PM EST Authorizing ProviderResult TypeResult StatusGeneric External Data Provider CLINISYNCFinal ResultPerforming OrganizationAddressCity/State/ZIP CodePhone Number [facility] * (ABNORMAL) ALL RENAL FUNCTION PANEL (03/25/2025 11:23 AM EST)ComponentValueRef RangeTest MethodAnalysis TimePerformed AtPathologist OrfuyrdyyNTZQNX065923 - 145 mmol/LTBHPOTASSIUM4.03.5 - 5.1 mmol/MPHCCYHYRAVT49410 - 107 mmol/LTBH CARBON ONEUDHS10.621.0 - 32.0 mmol/LTBHANION GAP9.3UVUXUTVROC153(H)74 - 106 mg/dLTBHBLOOD UREA TQYJFEHD97.0(H)7.0 - 18.0 mg/dLTBHCREATININE1.56(H)0.55 - 1.02 mg/dLTBHTBH EGFR-AF DHPVHRHG11(L)>=60 mL/min/1.73m 2TBHTBH EGFR-NON AF NBUHXNAY28(L)>=60 mL/min/1.73m 2TBHBUN CREATININE RATIO19.2THVWJQZOFS4.18.5 - 10.1 mg/dLTBHPHOSPHORUS4.02.6 - 4.7 mg/dLTBHALBUMIN LEVEL3.53.4 - 5.0 g/dLTBH Specimen (Source)Anatomical Location / LateralityCollection Method / Volume Collection TimeReceived Time03/25/2025 11:23 AM EST03/25/2025 11:39 AM EST Narrative CLINISYNC - 03/25/2025 12:07 PM EST Authorizing ProviderResult TypeResult StatusGeneric External Data Provider CLINISYNCFinal ResultPerforming OrganizationAddressCity/State/ZIP CodePhone Number [facility] * ALL MAGNESIUM (03/25/2025 11:23 AM EST)ComponentValueRef RangeTest Method Analysis TimePerformed AtPathologist SignatureMAGNESIUM2.01.8 - 2.4 mg/dLTBH Specimen (Source)Anatomical Location / LateralityCollection Method / Volume Collection TimeReceived Time03/25/2025 11:23 AM EST03/25/2025 11:39 AM EST Narrative CLINISYNC - 03/25/2025 12:07 PM EST Authorizing ProviderResult TypeResult StatusGeneric External Data Provider CLINISYNCFinal ResultPerforming OrganizationAddressCity/State/ZIP CodePhone Number [facility] * (ABNORMAL) TBH URINE T PROTEIN CREAT RATIO (03/25/2025 11:11 AM EST)Component ValueRef RangeTest MethodAnalysis TimePerformed AtPathologist SignatureTOTAL PROTEIN URINE WSMRWJ41.0(H)<=11.9 mg/dLTBHCREATININE URINE TXUTMG26.3020.00 - 300.00 mg/dLTBHPROTEIN CREATININE RATIO URINE0.54TBHSpecimen (Source) Anatomical Location / LateralityCollection Method / VolumeCollection Time Received Time03/25/2025 11:11 AM EST03/25/2025 11:41 AM EST Narrative CLINISYNC - 03/25/2025 11:56 AM EST Authorizing ProviderResult TypeResult StatusGeneric External Data Provider CLINISYNCFinal ResultPerforming OrganizationAddressCity/State/ZIP CodePhone Number [facility] * (ABNORMAL) HMHP URINALYSIS, WITH MICROSCOPIC (03/25/2025 11:11 AM EST) ComponentValueRef RangeTest MethodAnalysis TimePerformed AtPathologist SignatureCOLOR URINELT. YELLOWYELLOWTBHCLARITY URINECLEARCLEARTBHSPECIFIC GRAVITY URINE1.0151.005 - 1.025TBHPH URINE5.05.0 - 9.0TBHPROTEIN URINENEGATIVE NEG/TRACE mg/dLTBHGLUCOSE URINE UANEGATIVENEGATIVE mg/dLTBHBILIRUBIN URINE NEGATIVENEGATIVETBHKETONES URINENEGATIVENEGATIVE mg/dLTBHBLOOD URINETRACE-I NEGATIVETBHNITRITE URINENEGATIVENEGATIVETBHUROBILINOGEN URINE0.20.2 - 1.0 EU/dLTBHLEUKOCYTE ESTERASE URINESMALL(A)NEGATIVETBHTBH WBC5-10(A)NONE SEEN #/HPFTBHTBH RBC0-20 - 2 #/HPFTBHBACTERIA URINEMODERATE(A)NONE SEEN #/HPFTBH MUCUS URINENONE SEENNONE SEENTBHSQUAMOUS EPITHELIAL CELL URINEMANY(A)NONE/RARE #/LPFTBHCRYSTALS SEEN?None SeenNone Seen #/HPFTBHCAST SEEN?NONE SEENNONE SEEN #/LPFTBHSpecimen (Source)Anatomical Location / LateralityCollection Method / VolumeCollection TimeReceived Time03/25/2025 11:11 AM EST03/25/2025 11:41 AM EST Narrative CLINISYNC - 03/25/2025 1:15 PM EST Authorizing ProviderResult TypeResult StatusGeneric External Data Provider CLINISYNCFinal ResultPerforming OrganizationAddressCity/State/ZIP CodePhone Number [facility] * (ABNORMAL) Hemoglobin A1c (02/25/2025 10:58 AM [...] Volume Collection TimeReceived TimeBloodVenous blood specimen / Bdwrtwq4002/25/2025 10:58 AM EDT1 10:58 AM EDT Narrative [facility] - 02/26/2025 6:02 AM EDT FASTING:YES FASTING: YES Resulting Agency Comment Performing Organization Information ?Site ID: [id number] ?Name: [facility] ?Address: [address] [place] [address], [address] [place] [id number] ?Director: Stephan Kline MD Authorizing ProviderResult TypeResult StatusEdshivam Espitia MDLAB BLOOD ORDERABLESFinal ResultPerforming OrganizationAddressCity/State/ZIP CodePhone Number [facility] * (ABNORMAL) Lipid panel (02/25/2025 10:58 AM EDT)ComponentValueRef RangeTest MethodAnalysis TimePerformed AtPathologist SignatureCHOLESTEROL, IZDYG668(H) <200 mg/dLQUESTHDL CRFJXASNIGM17> OR = 50 mg/sJSMXYZRRHAJMVYAZBKI684<150 mg/dL QUESTLDL ZUOMHDLMBTK151(H)mg/dL (calc)QUESTComment: Reference range: <100 Desirable range <100 mg/dL for primary prevention; <70 mg/dL for patients with CHD or diabetic patients with > or = 2 CHD risk factors. LDL-C is now calculated using the Luis Eduardo-Young calculation, which is a validated novel method providing better accuracy than the Friedewald equation in the estimation of LDL-C. Luis Eduardo SS et al. ANGELA. 2013;310(19): 6094-3991 (http://education.C-Vibes.Changers/faq/GAX459) CHOL/HDLC RATIO3.3<5.0 (calc)QUESTNON HDL XFVWVBUMIKG324(H)<130 mg/dL (calc) QUESTComment: For patients with diabetes plus 1 major ASCVD risk factor, treating to a non-HDL-C goal of <100 mg/dL (LDL-C of <70 mg/dL) is considered a therapeutic option. Specimen (Source)Anatomical Location / LateralityCollection Method / Volume Collection TimeReceived TimeBloodVenous blood specimen / Ljvtzyr3602/25/2025 10:58 AM EDT1 10:58 AM EDT Narrative [facility] - 02/26/2025 6:02 AM EDT FASTING:YES FASTING: YES Resulting Agency Comment Performing Organization Information ?Site ID: QPT ?Name: [facility] ?Address: [address] [place] [phone] ?Director: Stephan Kline MD Authorizing ProviderResult TypeResult [...] test. BUN38(H)7 - 25 mg/dLQUESTCreatinine1.61(H)0.60 - 1.00 mg/dVXYHHEUJQA86(L)> OR = 60 mL/min/1.55q1GCXQICUR/CREATININE RATIO24(H)6 - 22 (calc)VUEFDAcohgh570374 - 146 mmol/LQUESTPotassium, Bld4.23.5 - 5.3 mmol/JQJNIOLcpcwaen58565 - 110 mmol/L QUESTCarbon Wecmvdv0347 - 32 mmol/LQUESTCalcium9.68.6 - 10.4 mg/dLQUESTPROTEIN, TOTAL7.26.1 - 8.1 g/dLQUESTALBUMIN4.13.6 - 5.1 g/dLQUESTGLOBULIN3.11.9 - 3.7 g/dL (calc)QUESTALBUMIN/GLOBULIN RATIO1.31.0 - 2.5 (calc)QUESTBILIRUBIN, TOTAL 0.50.2 - 1.2 mg/dLQUESTALKALINE TFMLXWBCOCC26125 - 153 U/PGZSGMISG9869 - 35 U/L ZXNXALIP64 - 29 U/LQUESTSpecimen (Source)Anatomical Location / Laterality Collection Method / VolumeCollection TimeReceived TimeBloodVenous blood specimen / Eexdenz9602/25/2025 10:58 AM EDT1 10:58 AM EDT Narrative [facility] - 02/26/2025 6:02 AM EDT FASTING:YES FASTING: YES Resulting Agency Comment Performing Organization Information ?Site ID: QPT ?Name: [facility] ?Address: [address] [place] [address], [address] [place] [id number] ?Director: Stephan Kline MD Authorizing ProviderResult TypeResult StatusEdshivam Espitia MDSUSAN B. [facility] BLOOD ORDERABLESFinal ResultPerforming OrganizationAddressCity/State/ZIP CodePhone Number [facility] * (ABNORMAL) Diabetic Retinopathy Screening - OU - Both Eyes (07/06/2024 8:35 AM EST)Anatomical RegionLateralityModalityHeadOther Narrative Authorizing ProviderResult TypeResult StatusEdshivam Espitia MDOPHTH PHOTOGRAPHY Final Result * MICROALBUMIN, URINE QUANT (12/10/2021 12:00 PM EDT)ComponentValueRef RangeTest MethodAnalysis TimePerformed AtPathologist SignatureGENERIC LEGACY COMPONENT INTERNAL1-1,500ECW NONXML LABSGENERIC LEGACY COMPONENT INTERNAL8.8ECW NONXML LABSSpecimen (Source)Anatomical Location / LateralityCollection Method / VolumeCollection TimeReceived Time12/10/2021 12:00 PM EDT Narrative Authorizing ProviderResult TypeResult StatusEdward J Hemeyer MDECW LABSFinal ResultPerforming OrganizationAddressCity/State/ZIP CodePhone Number [facility] NONXML LABS * Bilateral screening mammogram (05/26/2021 12:00 PM EST)Anatomical Region LateralityModalityBreastBilateralMammographySpecimen (Source)Anatomical Location / LateralityCollection Method / VolumeCollection TimeReceived Time Narrative 05/26/2021 12:00 PM EST PERFORMED AT [facility] LOCATION:[id number] Procedure Note CONVERSION, GENERIC - 11/26/2022 PERFORMED AT [facility] LOCATION:[id number] Authorizing ProviderResult TypeResult StatusGrayson Espitia MDIMG BI PROCEDURES Final Result * Colonoscopy (01/07/2021 12:00 PM EDT)Anatomical RegionLateralityModality EndoscopySpecimen (Source)Anatomical Location / LateralityCollection Method / VolumeCollection TimeReceived Time01/07/2021 12:00 PM EDT Narrative 01/07/2021 12:00 PM EDT PERFORMED AT [facility] LOCATION:[id number] Procedure Note CONVERSION, GENERIC - 10/06/2022 PERFORMED AT [facility] LOCATION:[id number] Authorizing ProviderResult TypeResult StatusGrayson Espitia MDENDOSCOPY PROCEDURE ORDERABLESFinal Result from Last 3 Months or Most Recently Relevant to Health Maintenance Insurance Advance Directives TypeDate RecordedPatient RepresentativeExplanationPower of Attorney12/15/2022 9:23 AMLiving WillAdvance Directives and Living Will12/15/2022 9:22 AM Care Teams Team MemberRelationshipSpecialtyStart DateEnd Grayson Espitia MD [address] [place] [address] PCP - GeneralFamily Medicine10/12/22 Grayson Espitia MD [address] [place] [address] PCP - Medical [place] Walker Monroy MD [address] [place] [address] Referring PhysicianNeurolog06/30/23 Farhad Harper MD [address] [place] [address] Referring PhysicianCardiology06/30/23 Shannen Velazquez, ROGE [address] [address] Registered NurseFamily Medicine11/09/23
--- OUTSIDE RECORDS SUMMARY | 2025-05-20 10:16 | XMS_ITS | Clinical Summary ---
Author Organization [facility] tem Address [id number] [address] [place] [address] Care Team Providers Care Hydroblaster Name Role Phone Grayson Espitia MD Primary [...] 30 tablet 11/23/2022ctive Active Problems ProblemNoted DateDiagnosed PzfoOdpszv54/01/2023erebrovascular accident (CVA) 11/19/2022VA (cerebral vascular accident)12/31/2021 Immunizations ImmunizationAdministration DatesNext DueCOVID-19, mRNA, LNP-S, PF, 100mcg/0.5mL Dose08/11/2021,04/27/2021,08/30/2020,08/02/2020Influenza High Dose Preservative Free IM06/23/2021,03/25/2018Influenza, Injectable, quadrivalent (PF)03/01/2020, 03/25/2018,03/01/2016Influenza, Recombinant, Quadrivalent, Injectable, Preserv 02/28/2020Pneumococcal Conjugate 13-Cqsuwc7712/20/2016 Social History Tobacco UseTypesPacks/DayYears UsedDateSmoking Tobacco: NeverSmokeless Tobacco: Never Tobacco Cessation:Counseling Given: Not Answered Alcohol UseStandard Drinks/WeekCommentsNot Currently0 (1 standard drink = 0.6 oz pure alcohol)PHQ-2AnswerDate RecordedTotal Rlphn4682ChildcareAnswerDate TldhpwytWplrnhjtjCqxfoza05/12/2019EmploymentAnswerDate RecordedEmploymentUnknown 11/01/2018Hunger ScreeningAnswerDate RecordedWithin the past 12 months we worried whether our food would run out before we got money to buy more.Never True01/06/2023Within the past 12 months the food we bought just didn't last and we didn't have money to get more.Never True3Purpose - LifeAnswerDate RecordedPurpose and direction in htyrPxtfulx04/11/2021CommentsNoSex and Gender InformationValueDate RecordedSex Assigned at BirthNot on fileLegal Sex Rbfcii4812/26/2014 11:43 AM EDTGender IdentityNot on fileSexual OrientationNot on file Last Filed Vital Signs Vital SignReadingTime TakenCommentsBlood Ispsmlfg151/43001/06/2023 12:57 PM EDT Kwqag289611/23/2022 3:40 PM MJVOqhseihnivy77.7 ??C (98.1 ??F)11/23/2022 3:40 PM EDTRespiratory Zqdg760701/06/2023 12:57 PM EDTOxygen Spukybdawh85%11/23/2022 3:40 PM EDTInhaled Oxygen Concentration--Dlleyu77.3 kg (155 lb)01/06/2023 12:57 PM YEHPklfnp382.5 cm (5' 2.01 )01/06/2023 12:57 PM EDTBody Mass Index28.34 01/06/2023 12:57 PM EDT Plan of Treatment Health MaintenanceDue DateLast DoneCommentsDepression Dywywsrro90/19/1961Tobacco Casfuabaj34/19/1961DTaP,Tdap and Td Vaccines (1 - Tdap)12/09/1967Zoster (Shingles) Vaccine (1 of 2)1998RSV ( or age 60+ yrs) (1 - 1-dose 75+ series)12/09/2023Fall Risk Bxwefznbk28/OVID-19 Vaccine (2024- season)/, 04/27/2021, 08/30/2020, Additional history existsInfluenza Yqqxiih96/05/2021, 03/01/2020, 02/28/2020, Additional history exists Goals GoalPatient [...]
--- OUTSIDE RECORDS SUMMARY | 2025-05-20 10:16 | XMS_ITS | Clinical Summary ---
Author Organization [facility] Address [address] [facility] [place] [address] Care Team Providers Care Finisher Special Stocks Name Role Phone Grayson Espitia MD Primary Care Provider [phone] Source Comments The following information is NOT included in Care Everywhere downloads:Psychiatric notes, ECG results, Cardiac Rehab notes, Pulmonary Function notes, data from SmartForms (includes but not limited toPregnancy data,audiograms, eye exams, pre-surgical evaluation notes, well-child exam data).[facility] Allergies Active AllergyReactionsCriticalityNoted DateCommentsLatexAnaphylactic ShockHigh 05/10/2019 Eyes [...] Active Problems ProblemNoted DateDiagnosed DateAcute postoperative respiratory khasauz4508/02/2019 Dmdszrydpzhsxv08/12/2020Cervical stenosis of spinal canal08/02/2019Fall, initial sbaycaalm38/11/2020Acute cerebral oyuthmkfju60/15/2020CAD, multiple vessel 07/03/2019Coronary artery disease involving [place] coronary artery of [place] heart without angina pectorisHx of CABGS/P AVRParoxysmal atrial fibrillationH/O: CVA (cerebrovascular accident)Type 2 diabetes mellitus with other specified complicationElevated INRChronic anemiaAcute kidney injury superimposed on chronic kidney diseaseHerpes zoster without complicationHypertension, unspecified typeHyperlipidemia, unspecified hyperlipidemia typeGastroesophageal reflux disease, esophagitis presence not specified Immunizations ImmunizationAdministration DatesNext DueInfluenza, injectable, high dose seasonal, trivalent, preservative free (VOH=155)03/25/2018Influenza, injectable, quadrivalent, preservative free (WNB=021)03/01/2016Influenza, injectable, recombinant, quadrivalent, preservative free (EOI=975)02/28/2020Pneumococcal conjugate 13 valent (PCV13) (MMT=505)12/20/2016 Social History Tobacco UseTypesPacks/DayYears UsedDateSmoking Tobacco: NeverSmokeless Tobacco: NeverCommentsUnknownSex and Gender InformationValueDate RecordedSex Assigned at BirthNot on fileLegal PfeItwlfd85/11/2020 5:46 PM EDTGender Identity Not on fileSexual OrientationNot on file Last Filed Vital Signs Vital SignReadingTime TakenCommentsBlood Szlfblna031/5703 6:00 AM EDT Lbogd243208/07/2019 6:00 AM GLFYjdcwwiwzpj92.8 ??C (98.3 ??F)08/07/2019 6:00 AM EDTRespiratory Ojgc144308/07/2019 6:00 AM EDTOxygen Ztwuulstfz98%08/07/2019 6:00 AM EDTInhaled Oxygen Concentration--Thgbcm09.4 kg (148 lb 9.6 oz)08/02/2019 1:03 AM CVLDxirru101.5 cm (5' 2 )08/01/2019 11:38 PM EDTBody Mass Index27.18 08/01/2019 11:38 PM EDT Plan of Treatment Health MaintenanceDue DateLast DoneCommentsHepatitis C Ttfonike16/19/1967Tdap Iqfiigf4612/08/1966Hepatitis A (HAV) Vaccine (optional start 19+ years)12/09/1967 Shingles (RZV) Vaccine (1 of 2)1998Hepatitis B (HBV) Vaccine (optional start 60+ years)2008one Qvpawlbnfuox14/19/2014Pneumococcal Vaccine(s) (50+ yrs) (2 of 2 - PCV20 or PCV21)Annual Wellness Visit (G0438)1Basic Metabolic Panel/, 08/06/2019, 08/05/2019, Additional history existsRSV vaccine (adult) (1 - 1-dose 75+ series) 4COVID-19 Vaccine (4 - 2024- season)/10/2020, 08/30/2020, 08/02/2020Influenza Vaccine (#1), 03/25/2018, 03/01/2016Pap SmearDiscontinued Procedures Procedure NamePriorityDate/TimeAssociated DiagnosisCommentsBASIC METABOLIC PANEL Znocsjl4408/07/2019 2:52 AM EDT from Last 3 Months or Most Recently Relevant to Health Maintenance Results * (ABNORMAL) BASIC METABOLIC PANEL (08/07/2019 2:52 AM EDT)ComponentValueRef RangeTest MethodAnalysis TimePerformed AtPathologist VhxakbpkxQbypvlq017(H)80 - 116 mg/dL08/07/2019 3:38 AM [facility] DAXRHSNJBKBihtcg125(L)135 - 148 mmol/L08/07/2019 3:38 AM [facility] LABORATORYPotassium3.93.3 - 5.3 mmol/L08/07/2019 3:38 AM [facility] LABORATORYCarbon Vmlhpwa9896 - 30 mmol/L08/07/2019 3:38 AM [facility] ZYUUWXPSKXGpygtnph81932 - 111 mmol/L 08/07/2019 3:38 AM [facility] LABORATORYBlood Urea Oefkhfxr853 - 22 mg/dL08/07/2019 3:38 AM [facility] LABORATORYCreatinine1.90(H)0.50 - 1.10 mg/dL08/07/2019 3:38 AM [facility] LABORATORYCalcium8.78.4 - 10.4 mg/dL08/07/2019 3:38 AM [facility] LABORATORYAnion Xul450 - 1303 3:38 AM [facility] LABORATORYEstimated GFR (CKD-EPI)26(L)>=60 mL/min/1.86ydf1008/07/2019 3:38 AM [facility] LABORATORYSpecimen (Source) Anatomical Location / LateralityCollection Method / VolumeCollection Time Received TimeBloodBLOOD SPECIMEN / UnknownVenipuncture / Bhyizqj2608/07/2019 2:52 AM EDT08/07/2019 3:09 AM EDT Narrative Authorizing ProviderResult TypeResult StatusCharjo ann Wakefield MD98 GENERAL LABFinal ResultPerforming OrganizationAddressCity/State/ZIP CodePhone Number [facility] [address] [place] [phone] from Last 3 Months or Most Recently [...] Team MemberRelationshipSpecialtyStart DateEnd Date Grayson Espitia MD [address] [place], [place] [address], [place] [address] [facility]08/02/19
--- OUTSIDE RECORDS SUMMARY | 2025-05-20 10:16 | XMS_ITS | Clinical Summary ---
Author Organization [facility] Address [address] [place] [address] Care Team Providers Care Office Machines Teacher Name Role Phone Grayson Espitia MD Primary Care Provider Allergies Active AllergyReactionsCriticalityNoted EglaVbadqootGupkf59/19/2019 Medications MedicationSigDispense QuantityRefillsLast FilledStart DateEnd DateStatus traZODone (DESYREL) 50 MG tablet Take 25 mg by mouth nightly as needed .Active FLUoxetine (PROZAC) 40 MG capsule Take 40 mg by mouth daily .Active magnesium 30 mg tablet Take 250 mg by mouth 2 (two) times a day .Active potassium chloride (K-DUR) 10 MEQ CR tablet Take 10 mEq by mouth 2 (two) times a day 3 tabs in am and 3 tabs in pm .Active spironolactone (ALDACTONE) 25 MG tablet Take 25 mg by mouth 2 (two) times a day .Active losartan (COZAAR) 100 MG tablet Take 100 mg by mouth daily .Active clopidogreL (PLAVIX) 75 mg tablet Take 75 mg by mouth daily .Active gemfibrozil (LOPID) 600 MG tablet Take 600 mg by mouth 2 (two) times a day .Active amLODIPine (NORVASC) 10 MG tablet Take 10 mg by mouth daily .Active niacin 500 MG tablet Take 500 mg by mouth daily with breakfast 2 tabs at bedtime .Active diphenhydrAMINE (BENADRYL) 25 mg tablet Take 25 mg by mouth nightly as needed for itching .Active aspirin 325 MG EC tablet Take 325 mg by mouth daily .Active Family History Medical HistoryRelationCommentsCancerFatherDiabetesMotherStrokeMotherRelation StatusCommentsFatherMother Social History Tobacco UseTypesPacks/DayYears UsedDateSmoking Tobacco: NeverSmokeless Tobacco: NeverAlcohol UseStandard Drinks/WeekCommentsNot Currently0 (1 standard drink = 0.6 oz pure alcohol)CommentsUnknownSex and Gender InformationValueDate RecordedSex Assigned at BirthNot on fileLegal DnrVyqurm57/03/2020 2:09 PM EST Gender IdentityNot on fileSexual OrientationNot on file Last Filed Vital Signs Vital SignReadingTime TakenCommentsBlood Zhktukzz747/72006/06/2019 3:03 PM EST Nmiys964506/06/2019 3:03 PM DEXEdvtaaztvzj82 ??C (98.6 ??F)06/06/2019 8:05 AM EST Respiratory Heee088506/06/2019 8:05 AM ESTOxygen Pbzgeclmzp23%06/06/2019 3:03 PM ESTInhaled Oxygen Concentration--Xccpod70.4 kg (142 lb)06/06/2019 8:40 AM EST Eqiqsx821.5 cm (5' 2 )06/06/2019 8:40 AM ESTBody Mass Index25.9706/06/2019 8:40 AM EST Plan of Treatment Not on file Medical Devices ImplantedTypeAreaManufacturerDevice IdentifierShelf Expiration DateModel / Serial / LotClosure Starclose Se - [id number] Implanted:Qty: 1 on 06/06/2019 [facility]Cl[facility] DeviceABBOTT [id number] / / Insurance Advance Directives For more information, please contact: [phone] * Full Code (Latest Code Status on File) Date ActivatedDate InactivatedComments06/06/2019 9:00 AM Care Teams Team MemberRelationshipSpecialtyStart DateEnd Date Grayson Espitia MD PCP - GeneralFamily Medicine05/29/19
--- OUTSIDE RECORDS SUMMARY | 2025-05-20 10:30 | XMS_ITS | CCD ---
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 Name Role Phone Grayson Hernandez Primary Care Provider TASIA IRIZARRY Admitting Unavailab le VIGESAA, TASIA HERNANDES Attending Unavailab le VIGESAA, TASIA HERNANDES Admitting Unavailab le VIGESAA, TASIA HERNANDES Attending Unavailab le GRAYSON HERNANDEZ Primary Care Unavailable VIGDEXTER, TASIA HERNANDES Admitting Unavailab le MARIONESMIKE, TASIA HERNANDES Attending Unavailab le GRAYSON HERNANDEZ Primary Care Unavailable Grayson Hernandez Primary Care Provider [phone] Grayson Hernandez Primary Care Provider [phone] CARO TERESA Referring Unavailable GRAYSON HERNANDEZ Primary Care Unavailable CARO TERESA Referring Unavailable GRAYSON HERNANDEZ Primary Care Unavailable VASILIY BETHEA Referring Unavailable GRAYSON HERNANDEZ Primary Care Unavailable VASILIY BETHEA Referring Unavailable GRAYSON HERNANDEZ Primary Care Unavailable CARO TERESA Admitting Unavailable CARO TERESA Attending Unavailable GRAYSON HERNANDEZ Primary Care Unavailable COLE ARTEAGA Consulting Unavailable EVETTE TARIF A Consulting Unavailable JODIE QUIROZ Consulting Unavailable ERLINDA BANSAL Consulting Unavailable XAVIER HENRIQUEZ Consulting Unavaila JAIMEE Souza Consulting Unavailable ISH RICHTER Consulting Unavailable ANGIE GARCIA Consulting Unavailable TITUS WILKERSON Consulting Unavailable LANDEN LUA Consulting Unavailable XOCHILT PERRY Consulting Unavailable ELOISE ARZOLA Consulting Unavailable Grayson Hernandez Primary Care Provider [phone] Grayson Hernandez Primary Care Provider PROVIDER, UNKNOWN Attending Unavailable PROVIDER, UNKNOWN Admitting Unavailable Grayson Hernandez MD Primary Care Provider Grayson Hernandez MD Primary Care Provider [phone] Martha Rnedon Unavailable JONE, DR ABHI Saldana Consulting Unavailable [...] e SAMSA ., ALIYAH Consulting Unavailable MARTHA JUNIOR Consulting Unavailable MANJEET GREENFIELD Consulting Unavailable EDI [...] MORALES, Harmony Unavailable Tasia Irizarry MD Unavailable Ewa ARAGON-Kirstie Thibodeaux Unavailable [phone] Grayson Hernandez MD Primary Care Provider ANSHUL IRIZARRY Attending Unavailable VIGESAA, ANSHUL S Referring Unavailable GRAYSON HERNANDEZ Primary Care Unavailable MATTY LEI Admitting Unavailable MATTY LEI Attending Unavailable GRAYSON HERNANDEZ Primary Care Unavailable Marcus GUAN, Shannen Unavailable [phone] Grayson Hernandez MD Primary Care Provider Morgan Womack MD Attending Provider [phone] Grayson Hernandez MD Primary Care Provider [phone] Morgan Womack MD Attending Provider Grayson Hernandez MD Unavailable Grayson Hernandez MD Primary Care Provider [phone] Grayson Hernandez MD Primary Care Provider Dm Agarwal Jr T Attending Unavailable Dm Agarwal Jr T Referring Unavailable Stefano Chang MD, Dm Unavailable Unavailable Marcus GUAN, Shannen Unavailable Grayson Hernandez MD Primary Care Provider [phone] SHANNAN CRENSHAW Referring Unavailable GRAYSON HERNANDEZ Primary Care Unavailable ANSHUL IRIZARRY Attending Unavailable JUAN C, ANSHUL S Referring Unavailable GRAYSON HERNANDEZ Primary Care Unavailable Grayson Hernandez MD Unavailable Walker Monroy MD Unavailable Tasia Irizarry MD Unavailable GRAYSON HERNANDEZ Attending Unavailable GRAYSON HERNANDEZ Attending Unavailable GRAYSON HERNANDEZ Attending Unavailable GRAYSON HERNANDEZ Attending Unavailable ROSHAN MAYFIELD Attending Unavailable GRAYSON HERNANDEZ Referring Unavailable JORGE LUIS GASCA Attending Unavailable GRAYSON HERNANDEZ Attending Unavailable GRAYSON HERNANDEZ Attending Unavailable GRAYSON HERNANDEZ Attending Unavailable Grayson Hernandez MD Primary Care Provider Maryjo Morrison APRN Attending Provider Grayson Hernandez MD Unavailable Shanta, Morgan Admitting Unavailable Shanta, Morgan Attending Unavailable Grayson Hernandez Primary Care Unavailable Shanta, Morgan Admitting Unavailable Shanta, Morgan Attending Unavailable Grayson Hernandez Primary Care Unavailable Maryjo Morrison Attending Unavail able Maryjo Morrison Admitting Unavail able Allergies Allergy ClassificationReported Allergen(s)Allergy TypeDate of OnsetReaction(s) Facility (20 sources)Latex; Translations: [LATEX]Propensity to adverse reactions to drug 89-19-2784[facility]apbgvvdphtSiidl [facility] Work Phone: (1 source)LatexDrug allergy (disorder)88-67-1520[facility] (20 sources)LatexPropensity to adverse khuxfjwld65-91-0859KmektcntofkSTLF [facility] (1 source)LatexDrug allergy (disorder)58-34-2654LrxqylatfBrown [facility] Medications Current Medications MedicationDrug Class(es)DatesSig (Normalized)Sig (Original)acetaminophen 500 mg oral tablet (15 sources)Start: 51-45-0216ufhl 1 tablet by mouth every six hours as needed for painStart: 40-27-8621jmqi 650 mg rectal route every four hours as needed for pain, [...] 4000 mg from all sources in 24 hoursStart: 31-63-3792lcvt 650 mg by mouth every four hours as needed for pain, then take 4000 mg by mouth every twenty-four hours as needed for cjps606 mg, Oral, EVERY 4 HOURS PRN, Pain Mild (1-3), Fever, Fever >100.5 F (38 C), Starting Tue07/03/19 at 1726 Maximum dose of acetaminophen is 4000 mg from all sources in 24 hours.acetaminophen 325 mg / oxyCODONE hydrochloride 5 mg oral tablet (5 sources)Opioid AgonistStart: 07-24-2019 End: 43-97-8862ooim 1 tablet by mouth twice daily as neededoxyCODONE- Acetaminophen 5-325 MG 1 tablet as needed Orally up to twice daily as needed for 30 days Activetake 1 tablet by mouth every four hours as needed for pain oxyCODONE-acetaminophen (PERCOCET) 5-325 MG per tablet Take 1 tablet by mouth every 4 hours as needed for Pain. 0 Ueftka559 ml albumin human, intermediate 50 mg/ml injection (1 source)Human Serum AlbuminStart: 76-04-271280 g, Intravenous, PRN, Other, PAD below goal and Low CI and/or Low BP and /or Low urine output perhemodynamic goals , Starting Tue07/03/19 at 1726 Up to a max of 1000 mL. Notify surgeon for furtherorders if max volume infused.[id number] 200 actuat albuterol 0.09 mg/actuat metered dose inhaler (1 source)beta2-Adrenergic AgonistStart: 33-96-8517upgn 2 puff(s) by inhalation every four hours as neededAlbuterol Sulfate HFA 108 (90 Base) MCG/ACT 2 puffs as needed Inhalation every 4 hrs Jun, Activeamiodarone hydrochloride 200 mg oral tablet (6 sources)AntiarrhythmicStart: 20-46-1293Ekbkd: 07-11-2019 End: 89-47-9609ycpq 200 mg by mouth twice jaryb844 mg, Oral, 2 TIMES DAILY, First dose (after last modification) on Tue07/11/19 at 2100Start: 07-07-2019 End: 69-64-0544sfur 400 mg by mouth twice hokqo045 mg, Oral, 2 TIMES DAILY, First dose on Tue07/07/19 at 0900Start: 83-71-2982jwjo 200 mg by mouth once mg, Oral, DAILY, First dose (after last modification) on Tue07/22/19 at 0900Start: 07-03-2019 End: 59-73-6125vdws 200 mg by mouth three times fhlie799 mg, Oral, 3 TIMES DAILY, First dose on Tue07/03/19 at 0900apixaban 5 mg oral tablet (20 sources)Factor Xa InhibitorStart: 54-08-5973viut 1 tablet by mouth in the morningapixaban (Eliquis) 5 MG tablet Take 1 tablet by mouth in the morning and 1 tablet before bedtime. 10/11/2022 Activetake 1 tablet by mouth once daily Eliquis 5 mg tablet take 1 tablet by oral route every day 5 MG - Active ARIPiprazole 2 mg oral tablet (20 sources)Atypical AntipsychoticStart: 08-01-2024 End: 20-37-2439fuym 0.5 tablet by mouth in the eveningARIPiprazole (Abilify) 2 MG tablet Indications: Persistent disorder of initiating or maintaining sleep , Vascular dementia with behavior disturbance (HCC) Take 0.5 tablets (1 mg) by mouth in the evening 45 tablet 1 09/03/2024 03/02/2025 ActiveStart: 11-30-2023 End: 73-52-8199gqtf 1 tablet by mouth once dailyAripiprazole 2 mg tablet Discontinued 2 MG PO Daily March 08, 2024 12:00am October 16, 2024 2:21pm aspirin 81 mg delayed release oral tablet (20 sources)Platelet Aggregation Inhibitor, Nonsteroidal Anti-inflammatory Drug Start: 95-80-7766jqys 1 tablet by mouth in the morningaspirin 81 MG EC tablet Take 81 mg by mouth in the morning. 11/24/2022 ActiveStart: 92-31-6214ypwy 1 tablet by mouth once dailyStart: 07-03-2019 End: 88-76-4976arhf 81 mg by mouth once daily81 mg, Oral, DAILY, First dose on Tue07/03/19 at 1745 Do not crush or break. End: 10-07-6668nvfj 1 tablet by mouth once dailyaspirin 325 mg Tab take 1 tablet (325MG) by oral route every day 325 MG - No Longer Activetake 1 tablet by mouth once dailyVazalore 81 mg capsule take 1 tablet by oral route every day for 1 day 1 tablet - Activetake 1 tablet by mouth every twenty-four hoursAspirin 81 MG 1 tablet Orally Once a day Activeaspirin 81 MG tablet Take 325 mg by mouth three times a week m-w- 0 Activetake 1 tablet by mouth once dailyaspirin 325 MG EC tablet Take 325 mg by mouth daily . 0 Activeaspirin 81 MG tablet Take 325 mg by mouth daily 0 Activetake 1 tablet by mouth once daily aspirin 81 MG tablet Take 81 mg by mouth daily 0 Activeatorvastatin 40 mg oral tablet (20 sources)HMG-CoA Reductase InhibitorStart: 07-04-2019 End: 68-62-6017axyw 1 tablet by mouth once dailybisacodyl 10 mg rectal suppository (2 sources)Stimulant LaxativeStart: 07-03-2019 End: 53-99-9755Alswx Glucose Monitoring Suppl (ONE TOUCH ULTRA 2) w/Device kit (20 sources)Start: 68-46-3096Xdasy Glucose Monitoring Suppl (ONE TOUCH ULTRA 2) w/Device kit 08/30/2022 ActiveStart: 68-45-0764Clmzr Glucose Monitoring Suppl (ONE TOUCH ULTRA 2) w/Device kit USE ONCE DAILY TO CHECK BLOOD SUGAR. 08/30/2022 ActiveStart: 00-02-2506Gkfaj Glucose Monitoring Suppl (ONE TOUCH ULTRA 2) w/Device kit USE ONCE DAILY TO CHECK BLOOD SUGAR. 0 08/30/2022 Activebumetanide 2 mg oral tablet (8 sources)Loop DiureticStart: 56-34-7695Omhje: 87-39-0638uosr 2 mg by mouth twice daily2 mg, Oral, 2 TIMES DAILY, First dose on Tue07/23/19 at 2100Start: mg, Intravenous, ONCE, 07/22/19 at 0715, For 1 doseStart: 07-18-2019 End: mg, Intravenous, 2 TIMES DAILY, First dose (after last modification) on Tue07/22/19 at 1900Start: mg, Intravenous, PRN, after blood transfusion, Starting 07/16/19 at 1054, For 1 doseStart: 07-13-2019 End: mg, Intravenous, 2 TIMES DAILY, First dose (after last modification) on Tue07/13/19 at 2100Start: 07-12-2019 End: mg, Intravenous, 3 TIMES DAILY, First dose on Jes[place] 07/12/19 at 1400calcium carbonate 500 mg oral tablet (5 sources)take 1 tablet by mouth once dailycalcium carbonate (OSCAL) 500 MG TABS tablet Take 1 tablet by mouth daily Activecalcium carbonate 1250 mg / cholecalciferol 0.01 mg oral tablet (1 source)Vitamin DCalcium 500 + D 500 mg-10 mcg (400 unit) tablet - Active calcium citrate 1040 mg oral tablet (20 sources)Start: 86-47-6320obzp 1 tablet by mouth once dailycarvedilol 6.25 mg oral tablet (20 sources)alpha-Adrenergic Peyton, beta-Adrenergic BlockerStart: 04-02-2024 take 1 tablet by mouth twice dailycarvedilol (COREG) 12.5 MG tablet Take 1 tablet by mouth twice daily 180 tablet 04/02/2024 ActiveStart: 99-11-0719deyv 0.5 tablet by mouth in the morning, then take 0.5 tablet by mouth at mealtime carvediloL (COREG) 12.5 mg tablet Take 0.5 tablets (6.25 mg total) by mouth in the morning and 0.5 tablets (6.25 mg total) in the evening. Take with meals. 30 tablet 0 11/23/2022 ActiveStart: 08-30-2021 End: 76-10-4065tmem 1 tablet by mouth twice dailyStart: 11-19-2020 End: 38-67-4289ndaw 2 tablets by mouth twice dailyCarvedilol 6.25 mg tablet Discontinued 12.5 MG PO Twice daily November 19, 2020 12:00am February 1:34pmStart: 28-80-2851qmxz 1 tablet by mouth twice daily at mealtimecarvedilol (COREG) 12.5 MG tablet Take 1 tablet by mouth 2 times daily (with meals) 60 tablet 3 07/24/2019 ActiveCarvedilol Activecefuroxime 250 mg oral tablet (6 sources)Cephalosporin AntibacterialStart: 03-05-2025 End: 38-01-4586dpdt 1 tablet by mouth in the morningcefuroxime (Ceftin) 250 MG tablet Indications: Acute cystitis without hematuria Take 1 tablet (250 mg) by mouth in the morning and 1 tablet (250 mg) before bedtime. Do all this for 5 days. 10 tablet 03/05/2025 03/10/2025 ActiveStart: 04-30-2024 End: 18-79-3590lvxs 1 tablet by mouth in the morningcefuroxime (Ceftin) 250 MG tablet Indications: Acute cystitis without hematuria Take 1 tablet (250 mg) by mouth in the morning and 1 tablet (250 mg) before bedtime. Do all this for 7 days. 14 tablet 04/30/2024 05/07/2024 Activechlorhexidine gluconate 1.2 mg/ml mouthwash (2 sources)Start: 44-76-5229jurk 15 mL by mouth twice daily15 mL, Mouth/Throat, 2 TIMES DAILY, First dose on Tue07/03/19 at 2100Start: 07-03-2019 End: 78-01-0030sfap 15 mL by mouth once15 mL, Mouth/Throat, ONCE, Tue07/03/19 at 1015, For 1 dose Morning of surgery Pre-op (day of surgery)cholecalciferol 0.05 mg oral capsule (20 sources)Vitamin DStart: 80-17-0828cmkb 1 capsule by mouth once dailyStart: 03-08-2024 End: 65-06-9740dsrz 1 tablet by mouth once dailyCholecalciferol (Vitamin D3) (Vitamin D3) 125 mcg (5,000 unit) tablet Discontinued 125 MCG PO DailyMarch 08, 2024 1:27pm October 16, 2024 2:17pmStart: 11-19-2020 End: 99-42-0371xomk 1 tablet by mouth once dailyCholecalciferol (Vitamin D3) (Vitamin D3) 125 mcg (5,000 unit) Tablet Discontinued 250 MCG PO DailyNovember 19, 2020 12:00am March 08, 2024 1:34pmtake 1 capsule by mouth once daily cholecalciferol (Vitamin D-3) 125 MCG (5000 UT) capsule Indications: Vitamin D Deficiency Take 5,000 Units by mouth Daily Activetake 1 tablet by mouth once dailyvitamin D (CHOLECALCIFEROL) 50 MCG (2000 UT) TABS tablet Take 1 tablet by mouth daily Activetake 1 capsule by mouth once in the morningcholecalciferol (Vitamin D-3) 125 MCG (5000 UT) capsule Indications: Vitamin D Deficiency Take 5,000 Units by mouth in the morning. ActiveVitamin D3 125 mcg (5,000 unit) tablet - ActiveCholecalciferol (VITAMIN D) 125 MCG (5000 UT) CAPS Take 5,000 Units by mouth daily 0 Activetake 2 tablets by mouth in the morning cholecalciferol, vitamin D3, 5,000 units tablet Take 2 tablets (10,000 Units total) by mouth in themorning. 0 ActiveCholecalciferol (VITAMIN D) 125 MCG (5000 UT) CAPS Take 10,000 Units by mouth daily 0 Updbna432 hr cloNIDine 0.43896 mg/hr transdermal system (3 sources)Central alpha-2 Adrenergic AgonistStart: 69-06-5725Pshfx: 07-20-2019 apply 1 dose transdermal route every week1 patch, Transdermal, Administer over 7 Days, WEEKLY, First dose on Tue07/20/19 at 1000 Apply to a clean, hairless area of the upper outer arm or chest. Rotate patch sites weekly.Start: 07-15-2019 End: 36-29-9749bioyg 1 dose transdermal route every week1 patch, Transdermal, Administer over 7 Days, WEEKLY, First dose on Tue07/15/19 at 1700 Apply to a c lean, hairless area of the upper outer arm or chest. Rotate patch sclopidogrel 75 mg oral tablet (16 sources)P2Y12 Platelet InhibitorStart: 79-11-0434oimp 1 tablet by mouth once dailyclopidogrel (PLAVIX) 75 MG tablet TAKE 1 TABLET BY MOUTH ONCE DAILY 0 08/13/2021 ActiveStart: 23-80-4518wxyx 75 mg by mouth once daily75 mg, Oral, DAILY, First dose on Tue07/04/19 at 0900cyclobenzaprine hydrochloride 10 mg oral tablet (2 sources)Muscle RelaxantStart: 81-02-5361tvxv 1 tablet by mouth twice daily as neededCyclobenzaprine HCl 10 MG 1 tablet as needed Orally up to twice daily as needed for 15 days Activedexamethasone 1 mg/ml / neomycin 3.5 mg/ml / polymyxin b 03172 unt/ml ophthalmic suspension (16 sources)Aminoglycoside Antibacterial, Polymyxin-class Antibacterial, CorticosteroidStart: 86-20-2649fuch 1 drop(s) into the eye(s) three times daily lzmxtfpi-wgkofiwpn-nvoOAUEIjbzwi (Maxitrol) 0.1 % ophthalmic suspension Indications: Conjunctivitis1 drop to affected eye 3 times daily for 7 days. 5 mL 09/05/2024 Aojjih56 hr dilTIAZem hydrochloride 180 mg extended release oral capsule (20 sources)Calcium Channel BlockerStart: 08-08-2023 End: 39-66-7367gcws 1 capsule by mouth once dailydilTIAZem CD (Cardizem CD) 180 MG 24 hr capsule Indications: Primary hypertension Take 1 capsule (180 mg) by mouth Daily 90 capsule 1 03/05/2025 09/01/2025 ActiveStart: 05-19-2023 End: 71-64-6766idnh 1 capsule by mouth every twenty-four hours in the morning dilTIAZem CD (Cardizem CD) 180 MG 24 hr capsule Indications: Primary hypertension (CMS/HCC) Take 1 capsule (180 mg) by mouth in the morning. 90 capsule 0 05/19/2023 08/17/2023 ActiveStart: 35-20-1081fftx 1 capsule by mouth once dailydilTIAZem (CARDIZEM CD) 120 MG extended release capsule Take 1 capsule by mouth daily 90 capsule 3 11/01/2022 Activetake 1 capsule by mouth every twenty-four hours in the morningdilTIAZem CD (CARDIZEM CD) 120 mg 24 hr capsule Take 1 capsule (120 mg total) by mouth in the morning. 0 Activedocusate sodium 100 mg oral capsule (4 sources)Start: 06-99-9258aufs 1 capsule by mouth twice daily as needed for constipationdocusate sodium (COLACE, DULCOLAX) 100 MG CAPS Take 100 mg by mouth 2 times daily as needed for Constipation 15 capsule 0 07/24/2019 Activedonepezil hydrochloride 10 mg oral tablet (20 sources)Start: 03-12-2025 End: 22-58-8075judl 2 tablets by mouth at bedtimedonepezil (Aricept) 10 MG tablet Indications: Chronic organic brain syndrome Take 2 tablets (20 mg)by mouth at bedtime 180 tablet 1 03/12/2025 09/08/2025 ActiveStart: 03-24-2023 End: 33-60-9734zcao 2 tablets by mouth once daily at bedtimeDonepezil 10 mg tablet Discontinued 20 MG PO Daily at bedtime March 08, 2024 12:00am March 11, 2025 12:16pmtake 1 tablet by mouth once dailydonepezil (ARICEPT) 10 MG tablet Take 1 tablet by mouth nightly Activedoxycycline monohydrate 100 mg oral capsule (1 source)Tetracycline-class DrugStart: 43-10-4214iiib 1 capsule by mouth every twelve hoursDoxycycline Monohydrate 100 MG 1 capsule Orally every 12 hrs for 10 days Jun, Active0.5 ml dulaglutide 1.5 mg/ml auto-injector (20 sources)GLP-1 Receptor AgonistStart: 03-08-2024 End: 02-05-8493Ekedbatplsm (TRULICITY SC) Inject 2.5 mg into the skin once a week ActiveDulaglutide (TRULICITY SC) Inject 2.5 mg into the skin once a week 0 ActiveDULoxetine 20 mg delayed release oral capsule (20 sources)Serotonin and Norepinephrine Reuptake InhibitorStart: 93-61-9029pjfp 1 capsule by mouth once dailyStart: 07-16-2024 End: 90-98-8085odyx 2 capsules by mouth once dailyDULoxetine (Cymbalta) [address] capsule Indications: Anxiety associated with depression Take 2 capsules (40 mg) by mouth Daily Do not crush or chew. 60 capsule 2 01/07/2025 04/07/2025 Active Start: 11-19-2020 End: 60-05-6592uvkp 1 capsule by mouth once dailyDuloxetine 60 mg capsule,delayed release(DR/EC) Discontinued 60 MG PO Daily November 19, 2020 12:00amMa2024 2:16pmDULoxetine HCl Active0.8 ml enoxaparin sodium 100 mg/ml prefilled syringe (1 source)Low Molecular Weight HeparinStart: 87-05-275280 mg (rounded from 79.7 mg = 1 mg/kg 79.7 kg), Subcutaneous, 2 TIMES DAILY, First dose on Tue07/23/19 at 1300 Bridging off of heparin IV and await for therapeutic INR.Ferrous Bisglycinate Chelate 28 MG capsule (1 source)Start: 06-15-2023 End: 01-90-4170zsqe 1 capsule by mouth at mealtimeFerrous Bisglycinate Chelate 28 MG capsule Indications: Iron deficiency anemia due to chronic bloodloss Take 1 capsule by mouth in the evening. Take with meals 0 06/15/2023 07/15/2023 Activeferrous sulfate 325 mg oral tablet (9 sources)Start: 03-05-2025 End: 49-39-6144kucz 1 tablet by mouth every other dayferrous sulfate 325 (65 Fe) MG tablet Indications: Anemia due to stage 3b chronic kidney disease (CMS-HCC) Take 1 tablet (325 mg) by mouth every other day 45 tablet 3 03/05/2025 03/05/2026 ActiveFLUoxetine 4 mg/ml oral solution (19 sources)Serotonin Reuptake InhibitorStart: 88-86-4101tahk 10 mg by mouth once daily10 mg, Oral, DAILY, First dose on Tue07/20/19 at 1500Start: 03-18-2019 take 1 capsule by mouth once dailyFLUoxetine (PROZAC) 40 MG capsule Take 40 mg by mouth daily 1 03/18/2019 ActiveFluoxetine Activefurosemide 20 mg oral tablet (20 sources)Loop DiureticStart: 08-14-2024 End: 29-13-4147grlwletvrk (Lasix) 20 MG tablet Indications: Primary hypertension , Chronic diastolic congestive heart failure, NYHA class 1 ([facility]) 2 tablets every am (= 40 mg) and 1 tablet (=20 mg) daily before supper 90 tablet 1 03/05/2025 ActiveStart: 99-47-2904qlwimxykcl (Lasix) 20 MG tablet Indications: Chronic diastolic congestive heart failure, NYHA class1 (CMS/HCC) , Primary hypertension (CMS/HCC) , Edema, unspecified type 2 tablets every am (= 40 mg)and 1 tablet (=20 mg) daily before supper 90 tablet 06/18/2024 ActiveStart: 11-19-2020 End: 01-01-4221qiyv 1 tablet by mouth once dailyStart: 07-09-2019 End: 96-38-541586 mg, Intravenous, EVERY 12 HOURS, First dose on 07/09/19 at 0800Start: 07-06-2019 End: 45-36-763048 mg, Intravenous, ONCE, 07/08/19 at 1145, For 1 doseStart: 07-06-2019 End: 89-27-4455Rsjsphvb Tue07/06/19 at 1105, For 1 dose Germania Andres: luis helleridetake 1 tablet by mouth once dailyfurosemide (LASIX) 20 MG tablet Take 20 mg by mouth daily 0 ActiveglipiZIDE 10 mg oral tablet (20 sources)SulfonylureaStart: 12-29-2022 End: 37-84-5976zaykqTEGZ (Glucotrol) 10 MG tablet Indications: 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, without long-term current use of insulin (CMS/HCC) Take Glipizide 10mg and Glipizide 5mg together (=15mg total) twice a day, in am and evening before meal 180 tablet 1 12/29/2022 02/21/2024 Discontinued (Therapy completed) Start: 12-29-2022 End: 05-10-3102qjmnuPNYE (Glucotrol) 5 MG tablet Indications: Type 2 diabetes mellitus with both eyes affected by mild nonproliferative retinopathy without macular edema, without long-term current use of insulin (CMS/HCC) Take Glipizide 5mg and Glipizide 10mg together (=15mg total) twice a day, in am and evening b efore meal 180 tablet 1 12/29/2022 02/21/2024 Discontinued (Therapy completed) Start: 03-49-2800xxkw 1 tablet by mouth twice daily before mealtimeglipiZIDE (GLUCOTROL) 5 MG tablet TAKE 1 TABLET BY MOUTH TWICE DAILY BEFORE A MEAL 0 08/30/2021 ActiveStart: 08-30-2021 End: 42-83-9500sjzh 1 tablet by mouth once dailyglipiZIDE (GLUCOTROL) 5 MG tablet Take 1 tablet by mouth daily 0 08/30/2021 09/27/2023 Discontinued(LIST CLEANUP)Start: 11-19-2020 End: 49-32-7614dhag 1 tablet by mouth twice dailyGlipizide 10 mg tablet Discontinued 10 MG PO Twice daily November 19, 2020 12:00am March 08, 2024 1:29pmglipiZIDE Activeglucagon (rdna) 1 mg injection (1 source)Antihypoglycemic AgentStart: 49-98-9375wmrr 1 mL intravenous route every hour1 mg, Intramuscular, PRN, Low blood sugar, Blood glucose less than 70 mg/dL and patient NOT ALERT or NPO and does not have IV access., Starting Tue07/03/19 at 1726 After administration, attempt intravenous access and start D5W at 100 mL/hr. Repeat blood glucose in 15 minutes x2 and notify provider.150 ml glucose 50 mg/ml injection (3 sources)Start: 39-45-659892 g, Oral, PRN, Low blood sugar, Starting [...] mg/dL, repeat treatment and recheck blood glucose in15 minutes x2 and notify provider.Start: 56-85-812307.5 g, Intravenous, PRN, Low blood sugar, Blood glucose less [...] and recheck blood glucose in 15 minutes x2.If using Glucostabilizer, dose as instructed per system.Start: 89-81-0141060 mL/hr, Intravenous, at 100 mL/hr, PRN, Low blood sugar, Starting e 07/03/19 at 1726 Start infusion following administration of dextrose 50% or glucagon.hydrALAZINE hydrochloride 25 mg oral tablet (9 sources)Arteriolar VasodilatorStart: 48-24-2974mjiz 1 tablet by mouth every eight hourshydrALAZINE (APRESOLINE) 25 MG tablet Take 1 tablet by mouth every 8 hours 90 tablet 3 07/24/2019 ActiveStart: 47-68-890025 mg, Intravenous, EVERY 6 HOURS PRN, High Blood Pressure, Starting 07/21/19 at 2253 For high blood pressure, SBP > 160 or DBP > 100. Hold for HR more than 90Start: 07-39-6326gxer 1 dose by mouth three times daily25 mg, Oral, EVERY 8 HOURS SCHEDULED (3 times per day), First dose on 07/21/19 at 1400Start: 07-19-2019 End: 16-67-518344 mg, Intravenous, EVERY 6 HOURS PRN, High Blood Pressure, SBP > 160 or DBP > 100. Hold for HR more than 90, Starting [place] 07/19/19 at 1700Start: 07-14-2019 End: 92-27-876805 mg, Intravenous, EVERY 4 HOURS PRN, High Blood Pressure, SBP > 160 or DBP > 100. Hold for HR more than 90, Starting 07/14/19 at 0744Start: 35-26-265933 mg, Intravenous, ONCE, [place] 07/05/19 at 1030, For 1 doseStart: 07-03-2019 End: 07-14-20195 mg, Intravenous, EVERY 5 MIN PRN, High Blood Pressure, Starting 07/03/19 at 1726 Refer to hemodynamic goals for specific blood pressure parameters. May repeat doses up to a total of 20mg IV every 6 hours.insulin glargine 100 unt/ml injectable solution (6 sources)Insulin AnalogStart: 65-17-6535yribcry glargine (LANTUS) 100 UNIT/ML injection vial Inject 20 Units into the skin nightly 1 vial Active Start: 20-27-5698Ipxzc: 07-16-2019 End: 20-49-4525krdpnh 15 [IU] by subcutaneous injection once daily15 Units, Subcutaneous, NIGHTLY, First dose (after last modification) on Tue07/16/19 at 2100insulin lispro 100 unt/ml injectable solution (12 sources)Insulin AnalogStart: 00-80-4170esquknf lispro (HUMALOG) 100 UNIT/ML injection vial Inject 0-9 Units into the skin nightly 1 vial Active Start: 98-41-4201ujuxhzp lispro (HUMALOG) 100 UNIT/ML injection vial Inject 0-18 Units into the skin 3 times daily (with meals) 1 vial 3 07/24/2019 ActiveStart: 07-03-2019 End: 03-45-9463Wmosk: 07-03-2019 End: 74-10-63512-18 Units, Subcutaneous, 3 TIMES DAILY WITH MEALS, First dose on Tue07/11/19 at 0830 High Dose Corrective Algorithm Glucose: Dose: 70-139 &nbsp ; No Insulin&nbsp ;140-199 3 Units 200-249 6 Units 250-299 9 Units 300-349 12 Units 350- 400 15 Units Over 400 18 Units4 ml labetalol hydrochloride 5 mg/ml cartridge (1 source)beta-Adrenergic BlockerStart: 32-44-135848 mg, Intravenous, EVERY 4 HOURS PRN, High Blood Pressure, SBP > 160 or DBP > 100. Hold for HR less than 60, Starting 07/14/19 at 0744levothyroxine sodium 0.088 mg oral tablet (20 sources)l-ThyroxineStart: 05-06-2023 End: 90-74-6606pbzv 1 tablet by mouth once dailylevothyroxine (Synthroid, Levoxyl) 88 MCG tablet Indications: Acquired hypothyroidism Take 1 tablet(88 mcg) by mouth Daily 90 tablet 1 10/06/2024 04/04/2025 ActiveStart: 07-16-2021 Levothyroxine Sodium 88 MCG CAPS 88 mcg 07/16/2021 ActiveStart: 07-16-2021 levothyroxine (SYNTHROID) 100 MCG tablet 1 tablet 07/16/2021 ActiveStart: 11-19-2020 End: 50-41-6684nbhh 1 tablet by mouth once dailyLevothyroxine 125 mcg Tablet Discontinued 125 MCG PO Daily November 19, 2020 12:00am March 08, 2024 1:26pm take 1 capsule by mouth once dailylevothyroxine 88 mcg capsule take 1 capsule by oral route every day 88 MCG - Activeloratadine 10 mg oral tablet (9 sources)Start: 59-41-6902jagk 1 tablet by mouth once dailylosartin (2 sources)losartin ActiveMagnesium (20 sources)take 1 tablet by mouth in the eveningmagnesium 200 MG tablet Take 200 mg by mouth in the evening Activemagnesium 200 mg tablet - Active End: 01-90-8795seyneynos 250 mg tablet - No Longer Activetake 1 tablet by mouth in the eveningmagnesium 200 MG tablet Take 200 mg by mouth in the evening. Activetake 1 tablet by mouth once dailymagnesium 200 MG TABS tablet Take 1 tablet by mouth daily 0 Activetake 1 tablet by mouth in the evening magnesium 200 MG tablet Take 200 mg by mouth in the evening. 0 Activetake 1 tablet by mouth twice dailymagnesium 200 MG TABS tablet Take 200 mg by mouth 2 times daily 0 Activemagnesium gluconate 550 mg oral tablet (15 sources)magnesium 30 mg tablet Take 250 mg by mouth 2 (two) times a day . 0 Activetake 1 tablet by mouth every other daymagnesium 30 MG tablet Take 30 mg by mouth every other day 0 Activemagnesium oxide 400 mg oral tablet (15 sources)Start: 55-04-6261Rdkur: 03-08-2024 End: 97-09-6025Gbgcuhaen Oxide 400 mg magnesium tablet Discontinued 200 MG PO Daily March 08, 2024 1:28pm October 16, 2024 2:21pmStart: 11-19-2020 End: 25-17-2444Bpbavbygb Oxide 400 mg magnesium Tablet Discontinued 400 MG PO As Directed November 19, 2020 12:00am March 08, 2024 1:34pmtake 0.5 tablet by mouth in the morningmagnesium oxide (MAGOX) 400 mg tablet Take 0.5 tablets (200 mg total) by mouth in the morning. 0 Uoxcqa173 ml magnesium sulfate 10 mg/ml injection (1 source)Start: g, Intravenous, at 100 mL/hr, Administer over 1 Hours, PRN, Other, Electrolyte Replacement, Starting Tue07/03/19 at 1726 For magnesium less than 2 mg/dl give 1 gram X 2 doses (Total of 2 grams). Check with MD if elevation of BUN and creatinine. Repeat magnesium level in AM. methylPREDNISolone 4 mg oral tablet (1 source)CorticosteroidStart: 64-62-1154gjrkxnEJSZSDYhgdlw 4 MG as directed Orally Once a day for 6 days Jun, ActiveMisc Natural Products (COLON- AID) CAPS (11 sources)Misc Natural Products (COLON-AID) CAPS Take by mouth 0 Active Multivitamin preparation (1 source)take 1 tablet by mouth once daily at mealtimemultivitamin tablet take 1 tablet by oral route every day with food - Activeniacin 500 mg oral tablet (9 sources)Nicotinic Acidtake 2 tablets by mouth once daily at bedtimeniacin 500 MG tablet Take 500 mg by mouth daily with breakfast 2 tabs at bedtime . 0 Active End: 28-43-2852oyebah 500 MG extended release capsule Take 500 mg by mouth 0 ActiveNONFORMULARY (6 sources)take 1 tablet by mouth once dailyNONFORMULARY Take 1 tablet by mouth daily Preser vision ARED 0 Active2 ml ondansetron 2 mg/ml injection (20 sources)Serotonin-3 Receptor AntagonistStart: mg, Intravenous, EVERY 8 HOURS PRN, Nausea, Starting Tue07/03/19 at 1726take 1 tablet by mouth every eight hours as needed for nauseaondansetron (ZOFRAN) 4 MG tablet Take 1 tablet by mouth every 8 hours as needed for Nausea or Vomiting Activetake 1 tablet by mouth every twenty-four hours as needed for nausea and vomiting ondansetron ODT (Zofran-ODT) 4 MG disintegrating tablet Take 4 mg by mouth Daily as needed for nausea or vomiting. Activepolyethylene glycol 3350 63031 mg powder for oral solution (1 source)Osmotic LaxativeStart: g, Oral, DAILY, First dose on Tue07/04/19 at 0900 First line therapy for constipationPolyethylene Glycols (6 sources)Start: 82-51-3446WGMNBONOLPBL GLYCOL EX Polyethylene Glycol Active 1 EACH MISCELLANE Daily November 19, 2020 11:14am ActiveStart: 11-19-2020 End: 68-26-0603Kefcmswkkrsq Glycol Powder Discontinued 1 EACH MISCELLANE Daily as needed for Constipation November 19, 2020 12:00am March 08, 2024 1:34pm Start: 11-19-2020 End: 00-48-4534Rlloixcnxhgs Glycol Powder Discontinued 1 EACH MISCELLANE Daily as needed for Constipation November 18, 2020 11:00pm March 08, 2024 12:34pm potassium 99 mg extended release oral tablet (8 sources)Potassium 99 MG TABS Take 30 mg by mouth 2 times daily 0 Ucdxfj779 ml potassium chloride 0.1 meq/ml injection (8 sources)Start: 05-58-0124vunl 10 mL intravenous route every hour as wkogxb07 mEq, Intravenous, at 100 mL/hr, PRN, Potassium Replacement, Starting 07/22/19 at 0657 K Lab Replacement Action 3.1- 3.5 10 mEqIVPB x 4 doses (40 mEq Total) 2.7-3.0 10 mEq IVPB x 6 doses (60 mEq Total) < 2.7 &nbsp ; CALL PHYSICIAN and 10 mEq IVPB x 6 doses (60 mEq Total) Infuse at 10 mEq/hr. Repeat Potassium lab 1 hour after final administration. Not for use in patients with CrCl less than 30 mL/min.Start: 07-14-2019 End: mEq, Oral, 2 TIMES DAILY, First dose on 07/14/19 at 1330, For 2 doses Dilute each 15 mL in atleast 6 ounces of water or fruit juice. May further dilute if GI adverse effects occur.Start: 07-11-2019 End: 06-90-168470 mEq, Intravenous, at 50 mL/hr, ONCE, Tue07/11/19 at 1700, For 1 doseStart: 07-03-2019 End: 44-96-217375 mEq, Intravenous, at 50 mL/hr, EVERY HOUR, First dose on 07/09/19 at 0800, For 2 dosesKlor-Con M20 Activetake 3 tablets by mouth twice daily in the eveningpotassium chloride (K-DUR) 10 MEQ CR tablet Take 10 mEq by mouth 2 (two) times a day 3 tabs in am and 3 tabs in pm . 0 Active potassium,chelated 99 mg oral tablet (5 sources)Potassium 99 MG TABS Take by mouth 0 Activepsyllium 400 mg oral capsule (11 sources)Start: 68-30-5924nfdvtaob 0.52 g capsule Psyllium Husk (Metamucil) 0.52 gram Capsule Active 0.52 GM PO Daily November 19, 2020 11:14am 11/19/2020 ActiveStart: 11-19-2020 End: 44-07-2103Sitrliyf Husk (Metamucil) 0.52 gram Capsule Discontinued 0.52 GM PO Daily as needed for Constipation November 19, 2020 12:00am March 08, 2024 1:34pmQUEtiapine 25 mg oral tablet (9 sources)Atypical AntipsychoticStart: 11-59-7738MUArtzxogv (SEROquel) 25 MG tablet Indications: Multi-infarct dementia with delirium (CMS/HCC) 1/2 - 1 tablet at bedtime 30 tablet 0 06/07/2023 ActiveStart: 28-30-1149Adagz: 07-18-2019 End: 02-76-0170qfmc 25 mg by mouth twice daily25 mg, Oral, 2 TIMES DAILY, First dose on Tue07/18/19 at 1300 First dose tonight.thiamine 100 mg oral tablet (2 sources)Start: 83-15-1053Wnzwb: 48-20-4301gffv 100 mg by mouth once mg, Oral, DAILY, First dose on Tue07/15/19 at 0930tiZANidine 4 mg oral tablet (7 sources)Central alpha-2 Adrenergic AgonistStart: 22-33-6276Yfkdh: 10-20-2012 tiZANidine (ZANAFLEX) 4 MG tablet Take 4 mg of ampicillin by mouth Takes as needed 0 10/20/2012 ActivetraMADol hydrochloride 50 mg oral tablet (2 sources)Opioid Agonisttake 1 tablet by mouth four times daily as needed for paintraMADol (ULTRAM) 50 MG tablet Take 50 mg by mouth 4 times daily as needed for Pain. 0 Activetriamcinolone acetonide 1 mg/ml topical cream (18 sources)CorticosteroidStart: 07-07-8818pmfmwjashfger (Kenalog) 0.1 % cream Indications: Dermatitis Apply topically Daily 90 g 07/11/2023 ActiveStart: 14-43-3938XMVSUAO - 10 mg 14 Feb, 2017 20 mgUNABLE TO FIND (10 sources)UNABLE TO FIND Indications: eothyrox Indications: eothyrox Active UNABLE TO FIND Indications: ther-biotic complete Indications: ther-biotic complete ActiveUNABLE TO FIND Indications: eothyrox Indications: eothyrox 0 ActiveUNABLE TO FIND Indications: ther-biotic complete Indications: ther-biotic complete 0 ActiveVitamin D3 (1 source)Vitamin D3 Activewarfarin sodium 2.5 mg oral tablet (6 sources)Vitamin K AntagonistStart: 07-24-20192.5 mg, Oral, ONCE Warfarin, e 07/24/19 at 1800, For 1 dose Review INR prior to administration. Hazardous med- See facility policy for handling/disposalStart: 76-57-9874prgl 1 tablet by mouth once dailywarfarin (COUMADIN) 2.5 MG tablet Take 1 tablet by mouth daily Please have patient hold dose on 07-25-19. Pt is therapeutic of INR 3.0. dose changed from 5mg to 2.5mg. 30 tablet 3 07/24/2019 ActiveStart: 07-22-20195 mg, Oral, ONCE Warfarin, Tue07/23/19 at 1800, For 1 dose Review INR prior to administration. Hazardous med- See facility policy for handling/disposal (20 sources)Start: 28-41-5131Hmar patient is currently receiving daily warfarin. Please check INR's and signs/symptoms of bleeding and bruising as appropriate. Hold for INR greater than 3.5 and contact physician.Start: 07-19-2019 End: .5 g, Intravenous, EVERY 12 HOURS, First dose (after last modification) on [place] 07/19/19 at 0100, Until DiscontinuedStart: 07-17-2019 End: .5 g, Intravenous, EVERY 6 HOURS, First dose on 07/17/19 at 1200, Until DiscontinuedStart: 07-15-2019 End: g, Intravenous, EVERY 12 HOURS, First dose on 07/15/19 at 1145, Until DiscontinuedStart: 07-15-2019 End: 70-02-3439741 Units/hr (5 mL/hr), Intravenous, at 5 mL/hr, CONTINUOUS, Starting 07/15/19 at 1130 LOW DOSE HEPARIN PROTOCOL Start at 500 units/hr Adjust infusion rate based on aPTT results (aPTT target range 1.5-2) - No boluses aPTT < 30 Increase infusion by 4 units/kg/hr [id number] Increase infusion by 2 units/kg/hr aPTT 50-70 No change aPTT 71-85 Decreaseinfusion by 2 units/kg/hr aPTT > 85 Hold heparin for 60 min Decrease infusion by 3 units/kg/hr aPTT > 100 Hold heparin for 60 min Decrease infusion by 4 units/kg/hr Check aPTT 6 hours after initiation and 6 hours after every dose change.Start: 07-11-2019 End: g, Intravenous, EVERY 24 HOURS, First dose on Tue07/11/19 at 1800, Until DiscontinuedStart: 07-11-2019 End: 29-13-489376 mg/hr (10 mL/hr), Intravenous, at 10 mL/hr, CONTINUOUS, Starting Tue07/11/19 at 1700 Adjust Lasix drip every 4 hours as needed to achieve a urine output between 101 50 mL an hour. The dose adjustment should be in 10 mg/h increments. Maximum Lasix infusion rate is 40 mg an hour.Start: 07-11-2019 End: mg/hr (2 mL/hr), Intravenous, at 2 mL/hr, CONTINUOUS, Starting Tue07/11/19 at 0545 For sedation, titrate to RASS -1 to -2 Dose Range: 1 to 10 mg/hr Max dose: 10mg/hr Contact physician if max dose does not [...] IV bolus dose and increase rate by 2mg/hrno faster than every 30 min If patient fails sedation interruption, administer bolus of&amp ;nbsp; midazolam 2 mg IV and resume titration at 50% of previous rateStart: 07-07-2019 End: 49-37-9193363 mg, Intravenous, at 600 mL/hr, Administer over 10 Minutes, ONCE, 07/07/19 at 0815, For 1 dose Use in-line filter.Start: 07-06-2019 End: mcg/min (1.875 mL/hr, rounded to 1.9 mL/hr), Intravenous, at 1.9 mL/hr, CONTINUOUS, Starting 07/06/19 at 1015 Titrate to SBP greater than 100 Dose Range 0.01 to 3.3 mcg/kg/min & amp;nbsp; Max Dose 3.3 mcg/kg/min Contact physician if max dose does not achievedesired response Titrate by 0.05 mcg/kg/min no faster than every 5 minutes to goalStart: 07-06-2019 End: mg/min (33.3333 mL/hr, rounded to 33.3 mL/hr), Intravenous, at 33.3 mL/hr, CONTINUOUS, Starting 07/06/19 at 0830 Use in-line filter.Start: 07-06-2019 End: 65-16-7860189 mg, Intravenous, at 600 mL/hr, Administer over 10 Minutes, ONCE, 07/06/19 at 0830, For 1 dose Use in-line filter.Start: 07-04-2019 End: .2 mcg/kg/hr 76.5 kg (3.825 mL/hr, rounded to [...] 0.1 mcg/kg/hr no faster than every 30 minStart: 07-03-2019 End: mcg/kg/min 65.4 kg (196.2 mL/hr), Intravenous, at 196.2 mL/hr, CONTINUOUS, Starting Tu07/03/19 at 2345 Titrate to MAP greater than 65 Dose Range: 0.1 to 1 mcg/kg/min Max Dose: 3 mcg/kg/min Contact physician if max dose does not achieve desired response Titrate by 0.1 mcg/kg/min no faster than every 5 minutes to goalStart: 07-03-2019 End: .02 mcg/kg/min 65.4 kg (1.2263 mL/hr, rounded to 1.2 mL/hr), Intravenous, at 1.2 mL/hr, CONTINUOUS, Starting Tue07/03/19 at 2345 Titrate to MAP greater than 65 Dose Range 0.01 to 3.3 mcg/kg/min &nb sp; Max Dose 3.3 mcg/kg/min Contact physician if ma x dose does not achieve desired response Titrate by 0.05 mcg/kg/min no faster than every 5 minutes to goalStart: 07-03-2019 End: Units/hr (1 mL/hr), Intravenous, at 1 mL/hr, CONTINUOUS, Starting Tue07/03/19 at 2245 Low target:80 High target: 130 Begin infusion rate by the following formula: (BG - 60) x 0.03 = insulin units per hour. Adjust current multiplier(0.03) in drip formula by doing the fo llowing steps: * Whenever BG is greater than [...] into goal range decreasing last multiplier by 0.01Start: 07-03-2019 End: mcg/kg/min 65.4 kg (3.924 mL/hr, rounded to 3.9 mL/hr), Intravenous, at 3.9 mL/hr, CONTINUOUS, Starting 07/03/19 at 2145 Dose Range: 0.5 to 10 mcg/kg/min Max Dose: 10 mcg/kg/min Contact physician if max dose does not achieve desired respon se TOF is higher than goal (more than [...] re-assess TOF and clinical response in 1 hourStart: 58-30-5517dohv 1 tablet by mouth every four hours as needed for pain[Order 1 Start] Name: oxyCODONE-acetaminophen (PERCOCET) 5-325 MG per tablet 1 tablet Signed Summary: 1 tablet, Oral, EVERY 4 HOURS PRN, Pain Moderate (4-6), Starting Tue07/03/19 at 1726 Maximum doseof acetaminophen is 4000 mg from all sources in 24 hours. [Order 1 End] [Order 2 Start] Name: oxyCODONE- acetaminophen (PERCOCET) 5-325 MG per tablet 2 tablet Signed Summary: 2 tablet, Oral, EVERY 4 HOURS PRN, Pain Severe (7-10), Starting Tue07/03/19 at 1726 Maximum dose of acetaminophen is 4000 mg from all sources in 24 hours. [Order 2 End]Start: g, Intravenous, at 100 mL/hr, Administer over 60 Minutes, PRN, Other, Electrolyte Replacement, Starting Tue07/03/19 at 1726 Administer 1 gram over 1 hour for ionic calcium level less than 1.05 mmol/L End: 07-24-2019 (2 sources)Start: 23-89-7013Udmmz: 89-74-9602qrdv 1 tablet by mouth once daily at breakfast1 tablet, Oral, DAILY WITH BREAKFAST, First dose on Tue07/04/19 at 0800 Start when taking po. (1 source) Completed/Discontinued Medications MedicationDrug Class(es)DatesSig (Normalized)Sig (Original)acetaminophen 325 mg / HYDROcodone bitartrate 5 mg oral tablet (5 sources)Opioid AgonistStart: 11-19-2020 End: 20-04-9545ebkw 1 tablet by mouth twice daily as needed for painHydrocodone- Acetaminophen 5-325 mg Tablet Discontinued 1 TAB PO Twice daily as needed for Pain 2020 12:00am March 08, 2024 1:34pmALPRAZolam 0.25 mg oral tablet (20 sources)BenzodiazepineStart: 01-22-2025 End: 10-26-3872eyyb 0.5 tablet by mouth in the morningALPRAZolam (Xanax) 0.25 MG tablet Indications: Anxiety associated with depression Take 0.5 tablets (0.125 mg) by mouth in the morning and 0.5 tablets (0.125 mg) before bedtime. 01/22/2025 03/05/2025 Discontinued (Therapy completed)Start: 12-27-2024 End: 29-26-2467bddc 1 tablet by mouth in the morningALPRAZolam (Xanax) 0.25 MG tablet Indications: Anxiety associated with depression Take 1 tablet (0.25 mg) by mouth in the morning and 1 tablet (0.25 mg) before bedtime. 60 tablet 12/27/2024 01/26/2025 ActiveStart: 37-86-7709uwki 1 tablet by mouth once daily Start: 11-16-2023 End: 69-54-5224xdxs 1 tablet by mouth every twenty-four hours in the morning ALPRAZolam XR (Xanax XR) 1 MG 24 hr tablet Indications: Anxiety associated with depression Take 1 tablet (1 mg) by mouth in the morning. Do not crush, chew, or split.. 30 tablet 5 07/30/2024 01/26/2025 ActiveStart: 06-10-2023 End: 79-34-3448hmme 1 tablet by mouth every twenty-four hours in the morning ALPRAZolam XR (Xanax XR) 1 MG 24 hr tablet Indications: Anxiety associated with depression Take 1 tablet (1 mg) by mouth in the morning. Do not crush, chew, or split.. 30 tablet 2 06/10/2023 09/08/2023 ActiveStart: 77-76-7046vurl 1 tablet by mouth three times dailyALPRAZolam (XANAX) 0.25 MG tablet 1 tablet 3 TIMES DAILY (route: oral) 01/10/2023 Activetake 1 tablet by mouth three times daily alprazolam 1 mg tablet take 1 tablet by oral route 3 times every day 1 MG - ActiveamLODIPine 10 mg oral tablet (20 sources)Dihydropyridine Calcium Channel BlockerStart: 07-19-2019 End: 25-36-6798tvnr 5 mg by mouth once daily5 mg, Oral, DAILY, First dose on [place] 07/19/19 at 1130Start: 03-18-2019 End: 29-51-1276yhhx 1 tablet by mouth once dailyAmlodipine 10 mg tablet Discontinued 10 MG PO Daily November 19, 2020 12:00am March 08, 2024 1:33pm10 ml calcium chloride 100 mg/ml prefilled syringe (1 source)Start: 07-03-2019 End: 90-81-4943Qmugdhum 07/03/19 at 1825, For 1 dose SERA GARCÍA: cabinet overridecalcium chloride 0.0014 meq/ml / potassium chloride 0.004 meq/ml / sodium chloride 0.103 meq/ml / sodium lactate 0.028 meq/ml injectable solution (1 source)Start: 07-03-2019 End: 61-49-8985Cxiegrurifa, at 125 mL/hr, CONTINUOUS, Starting Tue07/03/19 at 0700chlorothiazide 500 mg injection (3 sources)Thiazide DiureticStart: 07-17-2019 End: 11-36-1865955 mg, Intravenous, ONCE, Tu 07/17/19 at 1115, For 1 dose Reconstitute vial with 18 mL sterile water for injection for a final concentration of 28 mg/mL.Start: 07-15-2019 End: 07-14-3203877 mg, Intravenous, ONCE, [place] 07/15/19 at 1700, For 1 dose Reconstitute vial with 18 mL sterile water for injection for a final concentration of 28 mg/mL.Start: 07-12-2019 End: 62-74-1041390 mg, Intravenous, ONCE, [facility] 07/12/19 at 1200, For 1 dose Reconstitute vial with 18 mL sterile water for injection for a final concentration of 28 mg/mL.100 ml clevidipine 0.5 mg/ml injection (1 source)Dihydropyridine Calcium Channel BlockerStart: 07-10-2019 End: mg/hr (4 mL/hr), Intravenous, at 4 mL/hr, CONTINUOUS, Starting Tue07/10/19 at 0815 Titrate to [id number] Dose Range: 4 to 21 mg/hr Max dose: 32 mg/hr (recommend maximum total volume of 1000 mL due to lipid load) Contact physician if max dose does not achieve desired re sponse Titrate by 2 mg/hr no faster than every 2 minutes to goal If rapid blood pressure lowering is clinically indicated, contact prescriber for orders to double the infusion rate no faster than every 2 minutes to goal When approaching therapeutic goal or weaning off, smaller titration increments of 1 mg/hr no faster than every 2 minutes may be used to maintain goal1 ml dexamethasone phosphate 4 mg/ml injection (1 source)CorticosteroidStart: 07-18-2019 End: mg, Intravenous, EVERY 6 HOURS, First dose on Tue07/18/19 at 1300diphenhydrAMINE hydrochloride 25 mg oral capsule (20 sources)Histamine-1 Receptor AntagonistStart: 11-19-2020 End: 21-64-0874tgvq 1 capsule by mouth once daily at bedtimeDiphenhydramine Hcl (Benadryl) 25 mg Capsule Discontinued 25 MG PO Daily at bedtime November 19, 2020 12:00am March 08, 2024 1:33pmStart: 07-04-2019 End: 04-20-1308uwtr 25 mg by mouth once daily as needed for sleep25 mg, Oral, NIGHTLY PRN, Sleep, Starting Tue07/04/19 at 0000Start: 47-22-9728ejzh 2 capsules by mouth every four to six hours as neededBenadryl 25 mg capsule take 2 capsule (50MG) by oral route every 4 - 6 hours as needed 50 MG - Yvfgpk001 ml DOPamine hydrochloride 1.6 mg/ml injection (1 source)CatecholamineStart: 07-06-2019 End: .5 mcg/kg/min 81 kg (7.5938 mL/hr, rounded to 7.6 mL/hr), Intravenous, at 7.6 mL/hr, CONTINUOUS, Starting Tue07/06/19 at 0715 Map >65 Dose Range: 2.5 to 5 mcg/kg/min up to 20 mcg/kg/min Max dose: 20 mcg/kg/min Contact physician if max dose does not a chieve desired response If rate LESS than 10 [...] 5 minutes may be used to maintain goal20 ml etomidate 2 mg/ml injection (1 source)General AnestheticStart: 07-11-2019 End: 59-97-2096Usaoxrfrqtc, DAILY PRN, Starting Tue07/11/19 at 0502famotidine 20 mg oral tablet (20 sources)Histamine-2 Receptor AntagonistStart: 07-06-2019 End: 28-53-5024wrrj 1 tablet by mouth once dailyFamotidine 20 mg tablet Discontinued 20 MG PO Daily November 19, 2020 12:00am March 08, 2024 1:33pm Start: 07-05-2019 End: 83-45-7536clkw 20 mg by mouth twice daily20 mg, Oral, 2 TIMES DAILY, First dose on Tue07/05/19 at 0900Start: 98-46-240455 mg, Intravenous, 2 TIMES DAILY, First dose on Tue07/03/19 at 2100, For 3 doses Dilute with 5-10 mL 0.9% sodium chloride. Administer over 2 minutes.gabapentin 600 mg oral tablet (11 sources)Anti-epileptic AgentStart: 11-19-2020 End: 31-58-0235fdws 1 tablet by mouth twice dailyGabapentin 600 mg tablet Discontinued 600 MG PO Twice daily November 19, 2020 12:00am March 08, 2024 1:33pmtake 1 capsule by mouth every twenty-four hoursGabapentin 300 MG 1 capsule Orally Once a day Activetake 1 tablet by mouth three times dailygabapentin (NEURONTIN) 600 MG tablet Take 600 mg by mouth 3 times daily. 0 Active gemfibrozil 600 mg oral tablet (16 sources)Peroxisome Proliferator Receptor alpha AgonistStart: 03-18-2019 End: 43-09-6950Vcciaavehcs Pewbvq473 ml heparin sodium, porcine 100 unt/ml injection (2 sources)Unfractionated Heparin, Anti-coagulantStart: 07-09-2019 End: 68-98-3281413 Units/hr (5 mL/hr), Intravenous, at 5 mL/hr, CONTINUOUS, Starting Tue07/09/19 at 1145 LOW DOSE HEPARIN PROTOCOL Start at 500 units/hr Adjust infusion rate based on aPTT results (aPTT target range1.5-2) - No boluses aPTT < 30 Increase infusion by 4 units/kg/hr aPTT 30-49 Increase infusion by2 units/kg/hr aPTT 50-70 No change aPTT 71-85 Decrease infusion by 2 units/kg/hr aPTT > 85 Hold heparin for 60 min Decrease infusion by 3 units/kg/hr aPTT > 100 Hold heparin for 60 min Decreaseinfusion by 4 units/kg/hr Check aPTT 6 hours after initiation and 6 hours after every dose change. Start: 07-07-2019 End: 30-89-4424svhggo 1 dose by subcutaneous injection three times daily5,000 Units, Subcutaneous, EVERY 8 HOURS SCHEDULED (3 times per day), First dose on 07/07/19 at 1400ipratropium bromide 0.042 mg/actuat metered dose nasal spray (20 sources)AnticholinergicStart: 12-20-2023 End: 99-07-7277lflivoluqls (Atrovent) 0.06 % nasal spray Indications: Anxiety associated with depression Administer 2 sprays into each nostril in the morning and 2 sprays at noon and 2 sprays in the evening and 2 sprays before bedtime. 15 mL 07/30/2024 03/05/2025 Discontinued (Therapy completed)Lactobacillus Combination No.4 (Probiotic) 3 billion cell Capsule (5 sources)Start: 11-19-2020 End: 84-36-5802quhf 3 capsules by mouth once dailyLactobacillus Combination No.4 (Probiotic) 3 billion cell Capsule Discontinued 3000 MMU CELLS PO Daily November 19, 2020 12:00am March 08, 2024 1:34pmStart: 11-19-2020 End: 21-87-9941djtr 3 capsules by mouth once dailyLactobacillus Combination No.4 (Probiotic) 3 billion cell Capsule Discontinued 3000 MMU CELLS PO Daily November 18, 2020 11:00pm March 08, 2024 12:68xl150 ml levETIRAcetam 5 mg/ml injection (2 sources)Start: 07-08-2019 End: 51-26-6359602 mg, Intravenous, EVERY 12 HOURS, First dose on 07/08/19 at 0800, Until DiscontinuedStart: 07-07-2019 End: ,000 mg, Intravenous, ONCE, 1 dose, 07/07/19 at 09877 ml LORazepam 2 mg/ml injection (2 sources)BenzodiazepineStart: 07-07-2019 End: mg, Intravenous, EVERY 5 MIN PRN, Seizures, Starting 07/07/19 at 1843Start: 07-05-2019 End: 07-15-20192 mg, Intravenous, EVERY 4 HOURS PRN, Anxiety, Starting [place] 07/05/19 at 1330losartan potassium 25 mg oral tablet (20 sources)Angiotensin 2 Receptor BlockerStart: 11-19-2020 End: 12-59-9993slpa 2 tablets by mouth once dailyLosartan 25 mg tablet Discontinued 50 MG PO Daily November 19, 2020 12:00am March 08, 2024 1:34pm Start: 16-53-4965awnn 1 tablet by mouth once dailylosartan (COZAAR) 25 MG tablet Take 25 mg by mouth daily 1 03/18/2019 ActiveStart: 89-20-7201Sjhon: 03-18-2019 take 1 tablet by mouth once dailylosartan (COZAAR) 50 MG tablet Take 50 mg by mouth daily 1 03/18/2019 ActivemetFORMIN hydrochloride 1000 mg oral tablet (13 sources)BiguanideStart: 03-18-2019 End: 45-54-8416cwsxkcotko tartrate 25 mg oral tablet (8 sources)beta-Adrenergic BlockerStart: 07-14-2019 End: 47-18-7310pxmw 25 mg by mouth twice daily25 mg, Oral, 2 TIMES DAILY, First dose (after last modification) on 07/14/19 at 0900Start: 07-13-2019 End: 33-10-4119brbf 12.5 mg by mouth twice daily12.5 mg, Oral, 2 TIMES DAILY, First dose on Tue07/13/19 at 1245Start: 07-07-2019 End: 07-14-20192.5 mg, Intravenous, EVERY 6 HOURS, First dose on 07/07/19 at 2045 Hold for SBP < 100 and/or HR < 60 bpmStart: 07-07-2019 End: 08-30-4331Knarvrpt 07/07/19 at 1109, For 1 dose Germania Andres: luis overrideStart: 07-03-2019 End: 93-84-1223slmf 12.5 mg by mouth once daily12.5 mg, Oral, ONCE, 07/03/19 at 1015, For 1 dose, Pre-op (day of surgery)Start: 07-03-2019 End: 34-08-5011upui 25 mg by mouth twice daily25 mg, Oral, 2 TIMES DAILY, First dose on Tue07/04/19 at 0900 Hold for pulse < 70, SBP < 100,if patient on vasopressors, or if patient has a temporary pacemaker2 ml midazolam 1 mg/ml injection (2 sources)BenzodiazepineStart: 07-15-2019 End: mg, Intravenous, ONCE, Tue07/15/19 at 1130, For 1 doseStart: 07-15-2019 End: 07-18-20192 mg, Intravenous, EVERY 4 HOURS PRN, Anxiety, Agitation, Starting Tue07/15/19 at 7607539 ml milrinone lactate 0.2 mg/ml injection (2 sources)Phosphodiesterase 3 InhibitorStart: 07-04-2019 End: .375 mcg/kg/min 76.5 kg (8.6063 mL/hr, rounded to 8.6 mL/hr), Intravenous, at 8.6 mL/hr, CONTINUOUS, Starting Tue07/04/19 at 0800 Do not titrate without calling surgeon STAT - UnitStart: 07-04-2019 End: 49-27-9712Xeeactze Tue07/04/19 at 0741, For 1 dose ISABEL GELLER: cabinet overridemupirocin 0.02 mg/mg topical ointment (2 sources)RNA Synthetase Inhibitor AntibacterialStart: 07-03-2019 End: 10-77-0756Idzie, 2 TIMES DAILY, First dose on Tue07/03/19 at 2100, For 10 doses1 ml naloxone hydrochloride 0.4 mg/ml injection (1 source)Opioid AntagonistStart: 07-11-2019 End: 41-56-9952Ntkcudac Tue07/11/19 at 0428, For 1 dose TURNER WALTERS: cabinet sbidzrsi610 ml nitroglycerin 0.2 mg/ml injection (2 sources)Nitrate VasodilatorStart: 07-03-2019 End: 07-15-20195 mcg/min (1.5 mL/hr), Intravenous, at 1.5 mL/hr, CONTINUOUS, Starting Tue07/03/19 at 1830 Titrate to SBP less than 160 Dose Range: 10 to 200 mcg/min Max dose: 200 mcg/min Contact physician if max dose does not achieve desired response If rate LESS than 20 mcg/min titrate by 5 mcg/min every 5 minutes to goal If rate GREATER than orequal to 20 mcg/min titrate by 10 mcg/min every 5 minutes to goal Use of nitroglycerin is not recommended if SBP less than 90 mmHg; notify physician if indicatedStart: 06-06-2019 End: 76-85-4462zypjtOLMTBVIK (NITROSTAT) SL tablet 0.4 mgpotassium bicarbonate 20 meq effervescent oral tablet (1 source)Start: 07-07-2019 End: 08-55-9623rzkf 1 tablet by mouth once, then take 4-8 tablets by mouth40 mEq, Oral, ONCE, 2/15/20 at 0945, For 1 dose Substituted for Potassium Chloride Oral Solution. Do not chew or crush. Dissolve flavored tablets completely in 4 to 8 ounces of cold water; unflavored tablets may be dissolved in 4 to 8 ounces of cold juice. Patient to sip slowly over a 5 to 10 minute period. May further dilute if GI adverse effects occur.Start: 07-07-2019 End: 70-91-2145kcri 1 tablet by mouth once, then take 4-8 tablets by mouth40 mEq, Oral, ONCE, 2/15/20 at 0945, For 1 dose Substituted for Potassium Chloride Oral Solution. Do not chew or crush. Dissolve flavored tablets completely in 4 to 8 ounces of cold water; unflavored tablets may be dissolved in 4 to 8 ounces of cold juice. Patient to sip slowly over a 5 to 10 minute period. May further dilute if GI adverse effects occur.potassium gluconate 2.5 meq oral tablet (5 sources)Start: 11-19-2020 End: 55-49-8351xxpu 2 tablets by mouth once daily in the morning, then take 1 tablet by mouth in the eveningPotassium Gluconate 595 mg (99 mg) tablet Discontinued 595 MG PO Daily November 19, 2020 12:00am March 08, 2024 1:34pm 2 tab in am and 1 tab in pm100 ml propofol 10 mg/ml injection (3 sources)General AnestheticStart: 07-11-2019 End: 52-27-577222 mcg/kg/min 82.8 kg (4.968 mL/hr, rounded to 5 mL/hr), Intravenous, at 5 mL/hr, TITRATED, Starting Tue07/11/19 at 0945 For sedation, titrate to RASS -1 to -2 Dose Range: 5 to 50 mcg/kg/min Max dose: 50 mcg/kg/min Contact physician if max dose does not achieve desired res ponse If RASS 1 point below goal - [...] propofol vials should be discarded after 12 hours.Start: 07-03-2019 End: 62-16-8827Oxhpgcio Tue07/03/19 at 2146, For 1 dose Alondra Osorio: cabinet override Do not administer through the same I.V. catheter with blood or plasma. Tubing and any unused portions of propofol vials should be discarded after 12 hours.Start: 07-03-2019 End: 42-52-260075 mcg/kg/min 65.4 kg (3.924 mL/hr, rounded to [...] decrease rate by 10 mcg/kg/min no faster thanevery 5 min If RASS at goal, continue current rate If RASS 1 point above goal - increase rate by 5 mcg/kg/min no faster than every 5 min If RASS 2 or more points above goal- increase rate by 10 mcg/kg/min no faster than every 5 min If after titration rate change patient exhibits adverse hemodynamic response, next titration rate change may be adjustedby one-half of the previous rate change If patient fails sedation interruption, resume propofol titration at 50% of previous rate Do not administer through the same I.V. catheter with blood or plasma. Tubing and any unused portions of propofol vials should be discarded after 12 hours.regadenoson (LEXISCAN) injection 0.4 mg (1 source)Start: 09-27-2023 End: 55-72-4639znlntpcootb (LEXISCAN) injection 0.4 mgSennosides (Senna) 8.6 mg Tablet (3 sources)Start: 11-19-2020 End: 04-37-9296nyxv 1 tablet by mouth once dailySennosides (Senna) 8.6 mg Tablet Discontinued 8.6 MG PO Daily November 19, 2020 12:00am February 1:34pm Start: 11-19-2020 End: 52-82-1686ktoi 1 tablet by mouth once dailySennosides (Senna) 8.6 mg Tablet Discontinued 8.6 MG PO Daily November 18, 2020 11:00pm February 12:34pm sennosides, intermediate 8.6 mg oral tablet (20 sources)Start: 11-19-2020 End: 25-41-9411rcst 1 tablet by mouth once dailySennosides (Senna) 8.6 mg Tablet Discontinued 8.6 MG PO Daily November 19, 2020 12:00am February 1:34pm Sennosides 8.6 MG capsule as needed at bedtime. Ocvbca69 ml sodium bicarbonate 84 mg/ml injection (5 sources)Start: 07-07-2019 End: 59-49-834564 mEq, Intravenous, ONCE, 07/07/19 at 0945, For 1 doseStart: 07-06-2019 End: 73-42-047646 mEq, Intravenous, ONCE, 07/07/19 at 0315, For 1 doseStart: 07-06-2019 End: 89-35-2731Trzdtobj Tue07/06/19 at 1002, For 1 dose Rama Booth: luis overrideStart: 07-03-2019 End: 98-24-916051 mEq, Intravenous, EVERY 30 MIN PRN, Other, For Base deficit greater than -5, Starting Tue07/03/19 at 1726, For 12 hours5 ml sodium chloride 9 mg/ml injection (17 sources)Start: 09-27-2023 End: 76-76-9235pmfltz chloride flush 0.9 % injection 5-40 mLStart: 09-01-2023 sodium chloride flush 0.9 % injection 5-40 mLStart: 74-65-0019bxoane chloride flush 0.9 % injection 5-40 mLStart: .9 % sodium chloride infusion Start: 78-65-1261dtbhvr chloride flush 0.9 % injection 5-40 mLStart: 07-13-2019 10 mL, Intravenous, PRN, Line Care, Starting Tue07/13/19 at 1324 Flush each lumen of PICC.Start: 07-03-2019 End: 98-36-9802Dfqzucgbtsh, at 75 mL/hr, CONTINUOUS, Starting Tue07/03/19 at 2345Start: 95-17-088875 mL, Intravenous, EVERY 12 HOURS SCHEDULED (2 times per day), First dose on Tue07/13/19 at 2100 Flush each lumen of PICC not connected to a continuous infusion.Start: 43-39-4357ygcf 10 mL intravenous route once10 mL, Intravenous, PRN, Line Care, Starting Tue07/03/19 at 1726 After every IV line useStart: 06-06-2019 End: 10-59-7416276 mL, Intravenous, at 937.5 mL/hr, As needed, IF patient heart rate is less than 50 BPM and Systolic BP is less than 90 mmHG, notify Frame Operator, place patient in Trendelenberg, andgive 0.9% NaCl bolus, Starting Tue06/06/19 at 1227, For 1 doseStart: 06-06-2019 End: 72-81-5284smiwkg chloride 0.9% (NS)spironolactone 25 mg oral tablet (20 sources)Aldosterone AntagonistStart: 11-19-2020 End: 54-30-2130czhu 1 tablet by mouth once dailySpironolactone 25 mg tablet Discontinued 25 MG PO Daily November 19, 2020 12:00am March 08, 2024 1:34pm Start: 04-49-1734auzt 50 mg by mouth twice daily50 mg, Oral, 2 TIMES DAILY, First dose (after last modification) on Tue07/14/19 at 1800Start: 03-18-2019 End: 93-11-1156xbch 25 mg by mouth twice daily25 mg, Oral, 2 TIMES DAILY, First dose (after last modification) on Tue07/13/19 at 1800Start: 03-18-2019 End: 50-85-3440wmxy 25 mg by mouth once daily25 mg, Oral, DAILY, First dose on [place] 07/12/19 at 1200succinylcholine chloride 20 mg/ml injectable solution (1 source)Depolarizing Neuromuscular BlockerStart: 07-11-2019 End: 52-33-9521Kmdrcrbiywd, DAILY PRN, Starting Tue07/11/19 at 0503Suprep Bowel Prep Kit 17.5-3.13-1.6 GM/180ML (2 sources)Start: 08-30-1916Pfrqwz Bowel Prep Kit 17.5-3.13-1.6 GM/180ML 177 ML BOTTLE AT 4 PM AND ONE BOTTLE AT 11 PM DAY PRIOR TO PROCEDURE Orally Twice a day for 1 day(s) Nov, Not-Takingtechnetium sestamibi (CARDIOLITE) injection 10 millicurie (1 source)Start: 09-27-2023 End: 75-08-8974ydywtmeqqz sestamibi (CARDIOLITE) injection 10 millicurie traZODone hydrochloride 50 mg oral tablet (20 sources)Serotonin Reuptake InhibitorStart: 11-19-2020 End: 69-49-5367Huhjcumjf 50 mg tablet Discontinued 25 MG PO Daily at bedtime November 19, 2020 12:00am February 1:34pmStart: 04-30-2019 End: 91-12-5687pbhf 0.5 tablet by mouth once dailytraZODone (DESYREL) 150 mg tablet Take 150 mg by mouth nightly. Take 1/2 tablet. 0 ActivetraZODone HCl ActiveTurmeric Root Extract 500 mg capsule (5 sources)Start: 03-08-2024 End: 96-19-9192vvrz 1 capsule by mouth twice dailyTurmeric Root Extract 500 mg capsule Discontinued 500 MG PO Twice daily March 08, 2024 12:00am March 08, 2024 1:46pmStart: 03-08-2024 End: 58-31-1897ipht 1 capsule by mouth twice dailyTurmeric Root Extract 500 mg capsule Discontinued 500 MG PO Twice daily March 07, 2024 11:00pm March 08, 2024 12:42bw860 ml vancomycin 5 mg/ml injection (1 source)Glycopeptide AntibacterialStart: 07-04-2019 End: ,000 mg (15.3 mg/kg), Intravenous, at 200 mL/hr, Administer over 60 Minutes, EVERY 12 HOURS, Firstdose on Tue07/04/19 at 0200, For 3 doses Post-opsvecuronium bromide 1 mg/ml injectable solution (2 sources)Nondepolarizing Neuromuscular BlockerStart: 07-11-2019 End: 04-85-251183 mg, Intravenous, ONCE, Tue07/11/19 at 0645, For 1 doseStart: 07-11-2019 End: 45-99-4668Ooribbaj Tue07/11/19 at 0629, For 1 dose Veronica Valente: cabinet override (2 sources)Start: 07-07-2019 End: 74-68-855598 mcg/hr (1.25 mL/hr, rounded to 1.3 mL/hr), Intravenous, at 1.3 mL/hr, CONTINUOUS, Starting 07/07/19 at 1130 Titrate to RASS +1 to -1 Dose Range: 25 to 200 mcg/hr Max dose: 200 mcg/hr Contact physician if max dose does not achieve desired response If RASS greater than goal: increase fentanyl infusion by 25mcg/hr no faster than every hour If RASS at goal: continue same rate If RASS below go al: decrease fentanyl infusion by 25mcg/hr no faster than every hour If patient fails sedation interruption, resume fentanyl titration at previous rateStart: 07-06-2019 End: 68-80-890210 mcg/hr (1.25 mL/hr, rounded to 1.3 mL/hr), Intravenous, at 1.3 mL/hr, CONTINUOUS, Starting Tue07/06/19 at 0730 (1 source)Start: 07-16-2019 End: 73-43-1456cfqn 15 mL intravenous route once as xefvhj33 mL, Intravenous, IMG ONCE PRN, Other, Starting 07/16/19 at 1752, For 1 dose (1 source) End: 07-24-2019 (1 source)Start: 07-12-2019 End: 56-85-171817 mg, Intravenous, EVERY 6 HOURS PRN, High Blood Pressure, Starting [place] 07/12/19 at 1659 SBP > 160 STAT Problems Active Problems Problem ClassificationProblemDateDocumented DateEpisodic/ChronicAcute cerebrovascular disease (20 sources)Cerebral infarction; Translations: [Ischemic stroke]Onset: 07-07-2019 Resolved: 333899-59-5456TiyklnoZrxgfiu disorders (20 sources)Mixed anxiety and depressive disorder; Translations: [Other specified anxiety disorders]Onset: 282949-69-8773StekmfoIusxjpi dysrhythmias (20 sources)Chronic atrial fibrillation; Translations: [Chronic atrial fibrillation, unspecified]Onset: 842771-15-4598DmpptxbEqdgtyr dysrhythmias (1 source)Palpitations; Translations: [Palpitations]EpisodicCataract (20 sources)Bilateral age-related nuclear cataracts; Translations: [Age-related nuclear cataract, bilateral]Onset: 185331-60-6898VqpjqrrXuuuics kidney disease (20 sources)Chronic kidney disease, stage 4 (severe); Translations: [Chronic kidney disease stage 4]Onset: 07-03-2020 Resolved: 014890-50-0721NqaohcmBomvmfzzkkryl of surgical procedures or medical care (20 sources)Postsurgical menopause; Translations: [Asymptomatic postprocedural ovarian failure]Onset: 200187-36-0760PerohxsVtbfnodhyq disorders (20 sources)Long QT syndrome; Translations: [Long QT syndrome]Onset: 03-03-2015 33-27-7194AgfbkyfNrwdjtjbzo heart failure; nonhypertensive (20 sources)Congestive heart failure; Translations: [Unspecified diastolic (congestive) heart failure]Onset: 777818-18-9711OqgmxylEgraewyk atherosclerosis and other heart disease (20 sources)Multi vessel coronary artery disease; Translations: [Atherosclerotic heart disease of yuhaaviatam coronary artery without angina pectoris]Onset: 07-03-2019 Resolved: 920073-30-3175YrczmfpDekdooevrz and other anemia (7 sources)Anemia co-occurrent and due to chronic kidney disease stage 3; Translations: [Anemia due to stage 3b chronic kidney disease (CMS-HCC)]Onset: 605824-05-4458JdderjeQmaubieslh and other anemia (1 source)Anemia in chronic kidney disease; Translations: [Anemia in chronic kidney disease]Onset: 86-41-2111JygklriNjnddupq, dementia, and amnestic and other cognitive disorders (20 sources)Chronic organic mental disorder; Translations: [Unspecified mental disorder due to known physiological condition]Onset: 07-31-2020 Resolved: 829014-94-9324HarshzlElxttesd mellitus with complications (20 sources)Type 2 diabetes mellitus with hyperglycemia; Translations: [Type 2 diabetes mellitus with other circulatory complications]Onset: 10-20-2012 Resolved: 28-59-4758TqlpiadSklwchsk mellitus without complication (4 sources)Diabetes mellitus; Translations: [Type 2 diabetes mellitus without complications]Onset: 43-55-8037UadkysgCoekcpurs of lipid metabolism (20 sources)Hyperlipidemia; Translations: [Mixed hyperlipidemia]Onset: 31-82-9399LlzjcsxPohcbhxccm disorders (20 sources)Gastro-esophageal reflux disease without esophagitis; Translations: [Gastroesophageal reflux disease]Onset: 009361-70-4086IdhqvkoKmpafuahm hypertension (20 sources)Hypertensive disorder; Translations: [Essential (primary) hypertension]Onset: 49-81-4872DejmzgfIykecsldpzmgw symptoms and ill-defined conditions (2 sources)Urinary incontinence; Translations: [Unspecified urinary incontinence]66-19-5292WswqhgbWoslw valve disorders (20 sources)History of aortic valve replacement; Translations: [Aortic valve stenosis]Onset: 45-99-3952EdofiadZzoyijuxlpnq with complications and secondary hypertension (20 sources)Hypertensive chronic kidney disease with stage 1 through stage 4 chronic kidney disease, or unspecified chronic kidney disease; Translations: [Ischemic nephropathy]Onset: 505923-80-8744HtkmwdyPenmsgknuqiaq and screening for infectious disease (1 source)Contact with and (suspected) exposure to other viral communicable diseasesEpisodicInflammation; infection of eye (except that caused by tuberculosis or sexually transmitteddisease) (4 sources)Acute infectious conjunctivitis; Translations: [Unspecified acute conjunctivitis, bilateral]26-14-5157TihicvueRskd effects of cerebrovascular disease (20 sources)Flaccid hemiplegia of left nondominant side; Translations: [Hemiplegia and hemiparesis following cerebral infarction affecting left non- dominant side]Onset: 08-20-2019 Resolved: 386689-26-4360IqzodlhStdkzdh and fatigue (20 sources)Chronic fatigue syndrome; Translations: [Chronic fatigue syndrome] Onset: 031470-29-5659BeaxdaaXrgqhjuzms disorders (1 source)Hormone replacement therapy; Translations: [HORMONE REPLACEMENT THERAPY]Onset: 93-97-5245UlxipiahYqhx disorders (20 sources)Major depressive disorder, single episode, unspecified; Translations: [Recurrent major depressive episodes, moderate ]Onset: 08-17-2021 09-08-5784EqrytpcNsspokogqzc deficiencies (20 sources)Vitamin D deficiency; Translations: [Vitamin D deficiency, unspecified]Onset: 72-42-6820OapcbxrPmcxdjknp or stenosis of precerebral arteries (20 sources)Left carotid artery stenosis; Translations: [Occlusion and stenosis of left carotid artery]Onset: 416414-74-6786DrjotenFbka wounds of head; neck; and trunk (2 sources)Scalp laceration; Translations: [Laceration without foreign body of scalp, subsequent encounter]34-76-3317OtnmkugxNcrwjlcfjcmyfx (20 sources)Osteoarthritis of left knee joint; Translations: [Unilateral primary osteoarthritis, left knee]Onset: 301372-01-9847ZbhbskhCzqvf aftercare (1 source)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; Translations: [PENITENTIARY CURRNT USE ANTICOAGULANTS]Onset: 99-28-5536JrwpgjjfExwbr aftercare (1 source)Other fpc (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; Translations: [OTH PENITENTIARY CURRENT DRUG THERAPY]Onset: 48-99-5183MrodpyqkVppgl aftercare (2 sources)Patient encounter status; Translations: [Encounter for follow-up examination after completed treatment for conditions other than malignant neoplasm]70-87-1291LxgvbvmzWpahh aftercare (2 sources)Surgical follow-up; Translations: [Encounter for removal of sutures] 71-92-0554TgfzonvoRoiwn and ill-defined cerebrovascular disease (1 source)Cerebrovascular disease, unspecified; Translations: [CEREBROVASCULAR DISEASE UNSPECIFIED]Onset: 10-30-0853HuosdwgGhgtr and ill-defined heart disease (1 source)Other ill-defined heart diseases; Translations: [OTHER ILL-DEFINED HEART DISEASES]Onset: 68-08-4553JlpphwhAswda and ill-defined heart disease (20 sources)Cardiomegaly; Translations: [Cardiomegaly]Onset: 07-21-2017 84-40-2511EmwgevsKnlsl and ill-defined heart disease (20 sources)Left ventricular hypertrophy; Translations: [Cardiomegaly]Onset: 134781-00-0630AhkoshfOgcun connective tissue disease (7 sources)Recurrent falls ; Translations: [Repeated falls]59-64-6336Njvafzmi Other diseases of kidney and ureters (20 sources)Secondary hyperparathyroidism; Translations: [Secondary hyperparathyroidism of renal origin]Onset: 180070-87-0326ZqfxiyhXlghq diseases of kidney and ureters (4 sources)Secondary hyperparathyroidism of renal origin; Translations: [Secondary hyperparathyroidism (of renal origin)]Onset: 088596-67-9245 ChronicOther diseases of kidney and ureters (1 source)Renal impairment; Translations: [Kidney insufficiency]EpisodicOther eye disorders (20 sources)Bilateral vitreous degeneration of eyes; Translations: [Vitreous degeneration, bilateral]Onset: 823109-34-6539EgufunnUvzmd eye disorders (7 sources)Vitreous degeneration, bilateralChronicOther eye disorders (2 sources)Vitreous degenerationChronicOther hereditary and degenerative nervous system conditions (20 sources)Sympathotonic orthostatic hypotension; Translations: [Multi-system degeneration of the autonomic nervous system]Onset: hronic Other inflammatory condition of skin (2 sources)Seborrheic dermatitis; Translations: [Other seborrheic dermatitis] 72-71-6686TrttkmgyNwalh inflammatory condition of skin (7 sources)Itching of skin; Translations: [Pruritus, unspecified]Onset: 690180-33-1257HetybwbtWiwsy lower respiratory disease (3 sources)Dyspnea; Translations: [Shortness of breath]44-84-2302QhcvatcbRtvwe nervous system disorders (20 sources)Disorder of brain; Translations: [Encephalopathy, unspecified]Onset: 386918-80-8496DcjxcoiDfgcj nervous system disorders (2 sources)Chronic pain; Translations: [Other chronic pain]ChronicOther nervous system disorders (1 source)Other chronic painOnset: 06-22-2021 Resolved: 81-84-8287DquahseOczwu nervous system disorders (15 sources)Aphasia; Translations: [Aphasia]Onset: 315362-87-0173Fonynss Other nervous system disorders (20 sources)Encephalomalacia; Translations: [Other specified disorders of brain] Onset: 761294-58-9309LpzrsjwVprzy nervous system disorders (1 source)Postoperative pain ; Translations: [Post-op pain]EpisodicOther nutritional; endocrine; and metabolic disorders (1 source)Obesity, unspecified; Translations: [OBESITY UNSPECIFIED]Onset: 15-24-2323NxroesmLnhmz nutritional; endocrine; and metabolic disorders (1 source)Body mass index (BMI) 32.0-32.9, adult; Translations: [BODY MASS INDEX BMI 32.0-32.9 ADULT]Onset: 31-98-5532PqykojlPuxpo nutritional; endocrine; and metabolic disorders (20 sources)Hypomagnesemia; Translations: [Hypomagnesemia]Onset: 12-19-2018 29-94-9491UwzlcdkKnkch nutritional; endocrine; and metabolic disorders (1 source)Hypermagnesemia; Translations: [Hypermagnesemia]99-23-1945HxmgzunZrenw nutritional; endocrine; and metabolic disorders (1 source)Hypermagnesemia; Translations: [Hypermagnesemia]Onset: 11-15-2024 ChronicOther skin disorders (2 sources)Lentiginosis; Translations: [Other melanin hyperpigmentation] 85-85-7502CdvjboxcIjpgi skin disorders (2 sources)Seborrheic keratosis; Translations: [Other seborrheic keratosis] 69-00-2959DmhcofquYxvzg upper respiratory disease (1 source)Other seasonal allergic rhinitis; Translations: [OTHER SEASONAL ALLERGIC RHINITIS]Onset: 38-28-1154BcxlfccQzdcd upper respiratory disease (20 sources)Allergic rhinitis; Translations: [Allergic rhinitis, unspecified] Onset: 067520-23-4057EhbchuaZokkhdhewt and visceral atherosclerosis (20 sources)Atherosclerosis of renal artery; Translations: [Atherosclerosis of renal artery]Onset: 936293-57-2658YigshhbHvdxfswyz (except that caused by tuberculosis or sexually transmitted disease) (1 source)Pneumonia, unspecified organismEpisodicPulmonary heart disease (20 sources)Chronic cor pulmonale; Translations: [Cor pulmonale (chronic)]Onset: 458349-64-0086CkoezoeQgosyprj codes; unclassified (20 sources)Idiopathic sleep related non-obstructive alveolar hypoventilation; Translations: [Idiopathic sleep related nonobstructive alveolar hypoventilation] Onset: 415344-05-5325MtfdmduFxuozqmv codes; unclassified (20 sources)Hypoxia; Translations: [Idiopathic sleep related nonobstructive alveolar hypoventilation]Onset: 863599-62-5727EsbsyiwSymerfjf codes; unclassified (2 sources)Disorientated; Translations: [Disorientation, unspecified]04-30-2024 EpisodicResidual codes; unclassified (4 sources)Edema; Translations: [Edema, unspecified]55-53-7099QacbjrgqUblcngvg codes; unclassified (2 sources)Body mass index 20-24 - normal; Translations: [Body mass index (BMI) 23.0-23.9, adult]41-85-4407ZhljghdyIdohcjf detachments; defects; vascular occlusion; and retinopathy (20 sources)Nonexudative age-related macular degeneration; Translations: [Nonexudative age-related macular degeneration, bilateral, early dry stage] Onset: 08-25-2017 Resolved: 119475-07-1361TmgzreyPomsn and face fractures (2 sources)Closed fracture of nasal bones; Translations: [Fracture of nasal bones, subsequent encounter for fracture with routine healing]52-47-6699Lracjzfv Substance-related disorders (3 sources)Continuous opioid dependence; Translations: [Opioid use, unspecified, uncomplicated]Onset: 06-22-2021 Resolved: 07-37-4121OyborrwfRurkiej disorders (20 sources)Hypothyroidism, unspecified; Translations: [Acquired hypothyroidism] Onset: 911328-55-3019UmsuqbmYjlznqiwrecd (2 sources)Patient encounter statusUnclassified (4 sources)Drug therapy finding; Translations: [Anticoagulated]07-10-2019 Unclassified (2 sources)Chronic atrial fibrillation, unspecified; Translations: [CHRONIC ATRIAL FIBRILLATION UNSPEC]Onset: 23-24-7238Jvayoqmekssj (1 source)CONTACT W/AND (SUSP) EXPOS COVID-19; Translations: [CONTACT W/AND (SUSP) EXPOS COVID-19]Onset: 51-46-1815Hssdpex tract infections (6 sources)Urinary tract infection, site not specified; Translations: [Acute cystitis]Onset: 657653-57-7167XvjdocpeEtzxe infection (1 source)COVID-19; Translations: [COVID-19]Onset: 01-04-2022 Past or Other Problems Problem ClassificationProblemDateDocumented DateEpisodic/ChronicAcute and unspecified renal failure (20 sources)Acute renal failure syndrome; Translations: [Acute kidney failure, unspecified]Onset: 10-25-2022 Resolved: 687307-52-4900ZnnxrbeoZvdxlgozb infection; unspecified site (1 source)Unspecified Escherichia coli [E. coli] as the cause of diseases classified elsewhere; Translations:[UNS E COLI CAUSE DX CLASS ELSEWHERE]Onset: 07-97-1942JawtcopwJpbgmljnjw associated with dizziness or vertigo (4 sources)Dizziness and giddiness; Translations: [DIZZINESS AND GIDDINESS] Onset: 29-43-9717AanbdsqfFxpkxajs atherosclerosis and other heart disease (1 source)Presence of aortocoronary bypass graft; Translations: [PRESENCE AORTOCORONARY BYPASS GRAFT]Onset: 74-65-3525ZkgzzwwxSmsyihhnpw and other anemia (20 sources)Chronic anemia; Translations: [Anemia, unspecified]Onset: 10-25-2022 69-98-8575LdekbnmbF Codes: Adverse effects of medical drugs (1 source)Adverse effect of mineralocorticoids and their antagonists, initial encounter; Translations: [ADVRSEFF MINERALOCORTIC ANTAG INIT]Onset: 08-17-2021 EpisodicE Codes: Fall (20 sources)Fall; Translations: [Unspecified fall, initial encounter]Onset: 08-01-2019 Resolved: 947811-07-5678KexifqdwZgpcqrtm; convulsions (10 sources)Seizure; Translations: [Unspecified convulsions]Onset: 07-07-2019 14-51-9232UhbyitzaQgtnr and electrolyte disorders (20 sources)Hyperkalemia; Translations: [Hypokalemia]Onset: 00-67-3122Fekucfzd Genitourinary symptoms and ill-defined conditions (20 sources)Microalbuminuria; Translations: [Proteinuria, unspecified]Onset: 267678-61-3225OtgqyffzHnlai valve disorders (20 sources)Systolic murmur; Translations: [Cardiac murmur, unspecified]Onset: 47-71-1126RhaqljikEcnyhxm and fatigue (20 sources)Weakness; Translations: [Asthenia]Onset: 03-05-2023 Resolved: 53-81-2500VlpcijeeAonh disorders (20 sources)Mood disordersOnset: 06-07-2023 Resolved: Other aftercare (20 sources)Drug therapy finding; Translations: [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]Onset: 030340-23-9366CnvapquwQtgqa aftercare (1 source)snf (current) use of aspirin; 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]Onset: 30-98-4877LgxqbmegPzbir aftercare (1 source)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/antiplatelets; Translations: [UMBRELLA SUPERVISOR ANTITHROMBOT/ANTIPLATLETS]Onset: 52-42-7453Crseromw Other aftercare (20 sources)Polypharmacy ; Translations: [Other fpc (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]Onset: 998953-51-8395HquuxcrfVbckt bone disease and musculoskeletal deformities (20 sources)Disorder of bone; Translations: [Other specified disorders of bone density and structure, right thigh]Onset: 791527-96-2117KxgicbjvArcog circulatory disease (1 source)Carotid bruitEpisodicOther circulatory disease (1 source)Personal history of transient ischemic attack (TIA), and cerebral infarction without residual deficits; Translations: [PERS HX TIA AND CI NO RESID DEFICIT]Onset: 34-82-2141IcnemgzwAmrut circulatory disease (1 source)Other hypotension; Translations: [OTHER HYPOTENSION]Onset: 08-17-2021 EpisodicOther circulatory disease (20 sources)History of cerebrovascular accident; Translations: [Personal history of transient ischemic attack (TIA), and cerebral infarction without residual deficits]Onset: 836822-25-9670HywllojrLphrz circulatory disease (20 sources)Vascular disorder; Translations: [Other disorder of circulatory system]Onset: 212967-85-2681AlbijlrwZmpgi gastrointestinal disorders (20 sources)Slow transit constipation; Translations: [Slow transit constipation] Onset: 759400-74-9644OoatmebkAwbsk hematologic conditions (20 sources)Abnormality of albumin; Translations: [Other nonspecific findings on examination of blood]Onset: 10-25-2022 Resolved: 980580-01-3161FruokhxbEewhk injuries and conditions due to external causes (1 source)History of falling; Translations: [HISTORY OF FALLING]Onset: 03-88-2257VzefpdcpVwrch injuries and conditions due to external causes (20 sources)History of fall; Translations: [History of falling]Onset: 10-20-2022 02-32-9253TwfnplbdFkyaz nervous system disorders (1 source)Anesthesia of skin; Translations: [ANESTHESIA OF SKIN]Onset: 87-47-3229FlwuemfcDfdlq nervous system disorders (20 sources)Ataxia; Translations: [Ataxia, unspecified]Onset: 10-20-2022 23-35-4060RsdatrtqOooyg nervous system disorders (20 sources)Cognitive disorder; Translations: [Other symptoms and signs involving cognitive functions and awareness]Onset: 251664-47-8353Ysyexbwl Other non-epithelial cancer of skin (20 sources)History of malignant basal cell neoplasm of skin; Translations: [Personal history of other malignant neoplasm of skin]Onset: 11-03-2020 25-19-5380EaauntvwFmoer nutritional; endocrine; and metabolic disorders (20 sources)Body mass index 25-29 - overweight; Translations: [Overweight]Onset: 336211-54-7417BrpwqadzVpdxfpbw codes; unclassified (20 sources)Restlessness and agitation; Translations: [Restlessness and agitation]Onset: 03-07-2024 Resolved: 198296-52-8609WdpkigiBaxzboad codes; unclassified (3 sources)Altered mental status, unspecified; Translations: [ALTERED MENTAL STATUS UNSPECIFIED]Onset: 98-39-7843TyijzjbfYidvpjca codes; unclassified (20 sources)Persistent insomnia; Translations: [Insomnia, unspecified]Onset: 200321-12-3518MxeaqglbToribfpb codes; unclassified (1 source)Sleep disorder; Translations: [Sleep disorder, unspecified]Onset: 466902-84-1889NpseoglgQnivkjch codes; unclassified (20 sources)Menopause present; Translations: [Asymptomatic menopausal state] Onset: 12-07-2021 Resolved: 635418-37-8111BcdvzldlRsskqjyqucc failure; insufficiency; arrest (adult) (20 sources)Acute respiratory failure; Translations: [Acute postprocedural respiratory failure]Onset: 08-02-2019 Resolved: 265013-39-3990SqqbnrboVtcxpbdbemr; intervertebral disc disorders; other back problems (20 sources)Spinal stenosis in cervical region; Translations: [Spinal stenosis, cervical region]Onset: 08-02-2019 Resolved: 418277-81-2412IyoxortjOqjdkdl disorders (20 sources)Sick-euthyroid syndrome; Translations: [Sick-euthyroid syndrome] Onset: 871032-81-3328KltimoytXijyolvixjxb (2 sources)Other low back pain; Translations: [Other low back pain]Unclassified (1 source)Other low back pain M54.59Onset: 06-22-2021 Resolved: 95-96-1182Ctynxpwccghb (5 sources)Onset: 598954-96-4648Lqmazswsbscg (1 source)diabetic eye exam (chief complaint)Onset: 22-92-4043Fqfjvdkxiiuh (2 sources)NPDR (chief complaint)Onset: 06-23-2022 Resolved: 17-83-5640Qrkotyqocezk (1 source)NPDR (chief complaint) stable vision (chief complaint)Onset: 36-08-2025Minndgvxpjlx (1 source)Diabetic retinopathy (chief complaint) blurry vision (chief complaint) Onset: 97-15-8412Vuindhdarmzk (1 source)Diabetic retinopathy (chief complaint) stable vision (chief complaint) Onset: 75-88-6522Oxrkclcmisjx (1 source)diabetic retinopathy (chief complaint) reports no visual changes (chief complaint)Onset: 36-43-3262Pgljqvrrlxds (1 source)no noticeable change in vision (chief complaint) diabetic retinopathy (chief complaint)Onset: 84-69-6485Pytfdmxxdfki (1 source)blurry vision (chief complaint) 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) blood pressure (chief complaint)Onset: 74-53-3584Oqjghseihloy (1 source)macular cyst (chief complaint) decreased in vision (chief complaint) Vitals (chief complaint)Onset: 94-55-6056Pgrwb infection (20 sources)Postherpetic neuralgia; Translations: [Other postherpetic nervous system involvement]Onset: 10-29-2019 Resolved: 20-79-4010Gkttvvho Results Test NameValueInterpretationReference RangeFacilityTBH URINE T PROTEIN CREAT RATIOon 26-67-1596RMGHRJHIPY URINE NKWNGK68.30 mg/dL20.00 - 300.00 mg/dLNOMS HealthcareInterpretation and review of laboratory resultsAbnormalNOMS Healthcare Protein (U) [Mass/Vol]24.0 mg/dLHighNINF - 11.9 mg/dLNOIN HealthcarePROTEIN CREATININE RATIO URINE0.54NOMS HealthcareCLINISYNCNOMS HealthcareLaboratory - Chemistry and Chemistry - challengeOrdered By: Maryjo Morrison on 03-11-2025 Bilirubin Ql (U)NegativeBrown Memorial HospitalGlucose (U) [Mass/Vol] 100 mg/dLBrown Memorial HospitalKetones Ql (U)NegativeBrown Memorial HospitalpH (U)6.0 [pH][facility] Companypecific gravity (U) [Rel density]1.025Brown [facility] HospitalLaboratory - Specimen informationOrdered By: Maryjo Morrison on 47-79-7289Ttcpjzhceh (U) clearBrown Memorial HospitalColor (U)yellowBrown Memorial HospitalLaboratory - UrinalysisOrdered By: Maryjo Morrison on 03-11-2025 Leukocyte esterase Test strip Ql (U)NegativeBrown Memorial Hospital Nitrite Ql (U)NegativeBrown Memorial HospitalProtein Ql (U)Negative Brown [facility] HospitalNo Panel InformationOrdered By: Maryjo Morrison on 11-53-7907Xwikz Occult BloodmoderateBrown Memorial HospitalUrine Urobilinogen0.2EU/dLBrown Memorial HospitalUrine Cultureon 16-89-3783Rlcabjou identified Cx Nom (U)<9,000 colonies/ml mixed bacterial skin contaminants 2 Days PERFORMED BY: [facility] [address] [place] [address] PATHOLOGIST DETENTION OFFICER AMADOR FORD M.D.NormalThe [facility] University Physician GroupComment on above: Performed By: #### PTH, CLAUDY, RENAL, FE and TIBC, CBCNO, KSBY72EU, MG, LDET30RGO, URIC #### [facility] [address] #### KAPPA, SHORTY SERUM, SPE W INTERPRET #### [facility] ,COMPREHENSIVE METABOLIC PANELon 84-36-3560Elpziae [Mass/Vol]4.1 g/dLNormal 3.6-5.1Quest DiagnosticsComment on above:Performed By: #### 7600, 496, 46711 #### [facility] of [address], [address] [place] [address] Telecommunication Tower Technician: Stephan lKine MDAlbumin/Globulin [Mass ratio]1.3 {ratio}Normal 1.0-2.5Quest DiagnosticsComment on above:Performed By: #### 7600, 496, 29378 #### [facility] [place] [address] Telecommunication Tower Technician: Stephan Kline MDALP [Catalytic activity/Vol]137 U/LNormal 37-153Quest DiagnosticsComment on above:Performed By: #### 7600, 496, 48124 #### [facility] [place] [address] Telecommunication Tower Technician: Stephan Kline MDALT [Catalytic activity/Vol]9 U/LNormal6-29 Quest DiagnosticsComment on above:Performed By: #### 7600, 496, 07077 #### [facility] of [place] [address] Telecommunication Tower Technician: Stephan Kline MDAST [Catalytic activity/Vol]12 U/JIxopou15-23 Quest DiagnosticsComment on above:Performed By: #### 7600, 496, 82860 #### [facility] of [place] [address] Telecommunication Tower Technician: Stephan Kline MDBilirubin [Mass/Vol]0.5 mg/dLNormal0.2-1.2 Quest DiagnosticsComment on above:Performed By: #### 7600, 496, 26489 #### [facility] of [place] [address] Telecommunication Tower Technician: Stephan PEÑAalcium [Mass/Vol]9.6 mg/dLNormal8.6-10.4Quest DiagnosticsComment on above:Performed By: #### 7600, 496, 22145 #### [facility] of [place] [address] Telecommunication Tower Technician: Stephan Kline MDChloride [Moles/Vol]109 mmol/SWzcabc02-880 Quest DiagnosticsComment on above:Performed By: #### 7600, 496, 71525 #### [facility] of [place] [address] Telecommunication Tower Technician: Stephan Kline MDCO2 [Moles/Vol]20 mmol/VJqxutc93-11Pfyyu DiagnosticsComment on above:Performed By: #### 7600, 496, 65870 #### [facility] of [place] [address] Telecommunication Tower Technician: Stephan PEÑAreatinine [Mass/Vol]1.61 mg/dLHigh0.60-1.00 Quest DiagnosticsComment on above:Performed By: #### 7600, 496, 22145 #### [facility] of [place] [address] Telecommunication Tower Technician: Stephan Kline MDGFR/1.73 sq M.predicted among non-blacks MDRD (S/P/Bld) [Vol rate/Area]33 mL/min/{1.73_m2}Low> OR = 60Quest DiagnosticsComment on above:Performed By: #### 7600, 496, 57872 #### [facility] of [place] [address] Telecommunication Tower Technician: Stephan Kline MDGlobulin (S) [Mass/Vol]3.1 g/dLNormal1.9-3.7 Quest DiagnosticsComment on above:Performed By: #### 7600, 496, 72520 #### [facility] [place] [address] Telecommunication Tower Technician: Stephan Kline MDGlucose [Mass/Vol]185 mg/wPOkyl91-01Haurl DiagnosticsComment on above:Result Comment: Fasting reference interval For someone without known diabetes, a glucose value >125 mg/dL indicates that they may have diabetes and this should be confirmed with a follow-up test.Performed By: #### 7600, 496, 21919 #### [facility] [place] [address] Telecommunication Tower Technician: Stephan Kline MDPotassium [Moles/Vol]4.2 mmol/LNormal3.5-5.3 Quest DiagnosticsComment on above:Performed By: #### 7600, 496, 05712 #### [facility] [place] [address] Telecommunication Tower Technician: Stephan Kline MDProtein [Mass/Vol]7.2 g/dLNormal6.1-8.1Quest DiagnosticsComment on above:Performed By: #### 7600, 496, 25429 #### [facility] [place] [address] Telecommunication Tower Technician: Stephan Kline MDSodium [Moles/Vol]142 mmol/YGclrao111-227Ctina DiagnosticsComment on above:Performed By: #### 7600, 496, 36011 #### [facility] [place] [address] Telecommunication Tower Technician: Stephan Kline MDUrea nitrogen [Mass/Vol]38 mg/dLHigh7-25Quest DiagnosticsComment on above:Performed By: #### 7600, 496, 43122 #### [facility] [place] [address] Telecommunication Tower Technician: Stephan Kline MDUrea nitrogen/Creatinine [Mass ratio]24 mg/mg High6-22Quest DiagnosticsComment on above:Performed By: #### 7600, 496, 02658 #### [facility] [address], [address] [place] [address] Telecommunication Tower Technician: Stephan Kline MDHEMOGLOBIN A1con 30-92-0487RtE6f (Bld) [Mass fraction]6.6 %High<5.7Quest DiagnosticsComment on above:Result Comment: For someone without known diabetes, a [...] hemoglobin A1c for diagnosis of diabetes for children.Performed By: #### 7600, 496, 03065 #### [facility] [address], [address] [place] [address] Telecommunication Tower Technician: Stephan Kline MDLIPID PANEL, STANDARDon 04-10-0026Hhumshjmtiw [Mass/Vol]244 mg/dLHigh<200Quest DiagnosticsComment on above:Order Comment: FASTING:YES FASTING: YESPerformed By: #### 7600, 496, 42709 #### [facility] [address], [address] [place] [address] Telecommunication Tower Technician: Stephan Kline MDCholesterol in HDL [Mass/Vol]73 mg/dLNormal> OR = 50Quest DiagnosticsComment on above:Order Comment: FASTING:YES FASTING: YESPerformed By: #### 7600, 496, 92611 #### [facility] [place] [address] Telecommunication Tower Technician: Stephan Kline MDCholesterol in LDL [Mass/Vol]149 mg/dLHigh Quest DiagnosticsComment on above:Order Comment: FASTING:YES FASTING: YESResult Comment: Reference range: <100 Desirable range <100 mg/dL for primary prevention; <70 mg/dL for patients with CHD or diabetic patients with > or = 2 CHD risk factors. LDL-C is now calculated using the Concepcion calculation, which is a validated novel method providing better accuracy than the Friedewald equation in the estimation of LDL-C. Luis Eduardo JONES et al. ANGELA. 2013;310(19): 6228-0393 (http://education.[employer].NG Advantage/faq/ERT134)Performed By: #### 7600, 496, 07410 #### [facility] [address], [address] [place] [address] Telecommunication Tower Technician: Stephan Jessicasteroada.total/Cholesterol in HDL [Mass ratio]3.3 {ratio}Normal<5.0Quest DiagnosticsComment on above:Order Comment: FASTING:YES FASTING: YESPerformed By: #### 1330, 496, 76983 #### [facility] [address], [address] [place] [address] Telecommunication Tower Technician: Stephan OSBORNE HDL MUOHBFAOQCK812 mg/dL (calc)High<130 Quest DiagnosticsComment on above:Order Comment: FASTING:YES FASTING: YESResult Comment: For patients with diabetes plus 1 major ASCVD risk factor, treating to a non-HDL-C goal of <100 mg/dL (LDL-C of <70 mg/dL) is considered a therapeutic option.Performed By: #### 3610, 496, 47789 #### [facility] [place] [address] Telecommunication Tower Technician: Stephan Kline MDTriglyceride [Mass/Vol]105 mg/dLNormal<150 Quest DiagnosticsComment on above:Order Comment: FASTING:YES FASTING: YESPerformed By: #### 3130, 496, 82550 #### [facility] [place] [address] Telecommunication Tower Technician: Stephan Kline [facility] BASIC METABOLIC PANELon 48-52-6285Jfqyj gap [Moles/Vol]16.7 mmol/LNOMS HealthcareCalcium [Mass/Vol]9 mg/dL8.5 - 10.1 mg/dLNOMS HealthcareChloride [Moles/Vol]107 mmol/L98 - 107 mmol/LNOMS Healthcare CO2 [Moles/Vol]22.4 mmol/L21.0 - 32.0 mmol/LNOMS HealthcareCreatinine [Mass/Vol] 1.68 mg/dLHigh0.55 - 1.02 mg/dLNOMS HealthcareGFR/1.73 sq M.predicted CKD-EPI (S/P/Bld) [Vol rate/Area]36Low>=60 mL/min/1.73m 2NOMS HealthcareGlucose [Mass/Vol]158 mg/cMZdfv29 - 106 mg/dLNOIN HealthcareInterpretation and review of laboratory resultsAbnormalNOMS HealthcarePotassium [Moles/Vol]4.1 mmol/L3.5 - 5.1 mmol/LNOMS HealthcareSodium [Moles/Vol]142 mmol/L136 - 145 mmol/LNOMS HealthcareTBH EGFR-NON AF VGOESWCD50Nsr>=60 mL/min/1.73m 2NOMS HealthcareUrea nitrogen [Mass/Vol]37 mg/dLHigh7.0 - 18.0 mg/dLNOIN HealthcareUrea nitrogen/Creatinine [Mass ratio]22 mg/mgNOIN HealthcareALL PHOSPHOROUSon 71-76-5884Pmgnqekpk [Mass/Vol]4 mg/dL2.6 - 4.7 mg/dLNOIN HealthcareNo Panel Informationon 57-25-3895YEUTIBWXDDLKG HealthcareALL MAGNESIUMon 11-15-2024 Magnesium [Mass/Vol]2.2 mg/dL1.6 - 2.6 mg/dLNOIN HealthcareOriginal Ordering Provider: SHANNAN ALBRIGHTIN[facility] HealthcareMagnesiumon 11-15-2024 Magnesium [Mass/Vol]2.2 mg/dL1.6 - 2.6 mg/dLBon [facility] Centergnesium [Mass/Vol]2.2 mg/dLNormal1.6-2.6Mbarberton citizens hospitaly [facility] Comment on above:Performed By: #### MG #### [facility] [address] [place] [address] Baseball Pitcher: Abhi Simon [facility] BUFFALOardiac echo study ProcedureOrdered By: Christian Lilly on 00-14-7508As Root Index1.72 cm/m2Bon [facility] Work Phone: Aortic Root2.8 cmBon [facility] Work Phone: [phone] Aorta2.8 cmBon [facility] Work Phone: [phone] Aorta Index1.72 cm/m2Bon [facility] Work Phone: [phone] Area by Peak Velocity1.1 cm2Bon [facility] Work Phone: [phone] Area by VTI1.3 cm2Bon [facility] Work Phone: [phone] Mean Tomqkqhi18fePbNky [facility] Work Phone: [phone] Mean Velocity1.4 m/sBon [facility] Work Phone: [phone] Peak Ymvfhhqq94mcCqLsf tamyca Work Phone: [phone] Peak Velocity2.2 m/sBon [facility] Work Phone: [phone] Velocity Ratio0.45Bon [facility] Work Phone: [phone] VTI56 cmBon [facility] Work Phone: [phone]/BSA Peak Velocity0.7 cm2/m2Bon [facility] Work Phone: [phone]/BSA VTI0.8 cm2/m2Bon [facility] Work Phone: [phone] surface area Derived from formula1.65 m2Bon [facility] Work Phone: [phone]/E' Gcvnlhk46.82Bon [facility] Work Phone: [phone]/E' Ratio (Averaged)45.09Bon [facility] Work Phone: [phone]/E' Jymenp71.37Bon [facility] Work Phone: EF BP56 %55 - 100 %[employer] Phone: EF Nqbbkqlmi98 %[employer] Phone: Est. RA Zbwvlmqw5pnXjYdj [employer] Phone: Fractional Shortening 2D46 %28 - 44 %[employer] Phone: Interpretation and review of laboratory results AbnormalChandler Regional Medical Center [employer] Phone: GOGu6.9 cm0.6 - 0.9 cmChandler Regional Medical Center [employer] Phone: [phone] Diameter3.8 cmChandler Regional Medical Center [employer] Phone: LA Size Index2.33 cm/m2[facility] [employer] Phone: [phone] Volume A-L A4C72 bMArqbkfnu18 - 52 mLCaroGen Phone: [phone] Volume A-L O8G512 kPGiprbxyi60 - 52 mLC[facility] Phone: [phone] Volume A/L89 mLCaroGen Phone: LA Volume BP85 yCSdbeuuam81 - 52 mLCaroGen Phone: [phone] Volume Index A-L A2C44 mL/q7Plnqxdja93 - 34 mL/m2 [employer] Phone: LA Volume Index A-L A4C63 mL/r3Ursdbdon99 - 34 mL/m2 [employer] Phone: LA Volume Index A/L55 mL/m216 - 34 mL/m2[facility] [employer] Phone: LA Volume Index BP52 ml/s8Upenvnup36 - 34 ml/m2[employer] Phone: LA Volume Index MOD A2C44 ml/t4Biufaqpo51 - 34 ml/m2 [facility] Work Phone: [phone] Volume Index MOD A4C58 ml/s0Mwdqhcln49 - 34 ml/m2 [employer] Work Phone: LA Volume MOD A2C71 dSJzohgpon61 - 52 [facility] Work Phone: LA Volume MOD A4C95 aIYwotonje99 - 52 [employer] Work Phone: LA/AO Root Ratio1.36Bon [facility] Work Phone: [phone] E' Lateral Velocity5.61 cm/sBon [facility] Work Phone: [phone] E' Septal Velocity1.9 cm/sBon [facility] Work Phone: [phone] EDV O7Q612 [employer] Work Phone: [phone] EDV A4C84 [employer] Work Phone: [phone] EDV BP97 mL56 - 104 [employer] Work Phone: [phone] EDV Index A2C66 mL/m2[facility] Work Phone: [phone] EDV Index A4C52 mL/m2[facility] Work Phone: [phone] EDV Index BP60 mL/m2[facility] Work Phone: [phone] Ejection Fraction A2C57 %[facility] Work Phone: [phone] Ejection Fraction A4C58 %[facility] Work Phone: [phone] ESV A2C47 [facility] Work Phone: [phone] ESV A4C35 [facility] Work Phone: [phone] ESV BP42 mL19 - 49 [facility] Work Phone: LV ESV Index A2C29 mL/m2[facility] Work Phone: [phone] ESV Index A4C21 mL/m2Bon [facility] Work Phone: [phone] ESV Index BP26 mL/m2Bon [facility] Work Phone: [phone] Mass 2D123 g67 - 162 gBon [facility] Work Phone: [phone] Mass 2D Index75.4 g/m243 - 95 g/m2[facility] Work Phone: [phone] RWT Ratio0.49Bon [facility] Work Phone: [phone] cm3.9 - 5.3 cmBon [facility] Work Phone: [phone] Index2.52 cm/m2Bon [facility] Work Phone: [phone] cmBon [facility] Work Phone: [phone] Index1.35 cm/m2Bon [facility] Work Phone: [phone] Area2.5 cm2Bon [facility] Work Phone: [phone] Diameter1.8 cmBon [facility] Work Phone: [phone] Mean Fiwfyypa7plHsMlk [facility] Work Phone: [phone] Peak Fgwcpshw5jxMpYnf [facility] Work Phone: [phone] Peak Velocity1 m/sBon [facility] Work Phone: [phone] Stroke Volume Index47.1 mL/m2Bon [facility] Work Phone: [phone] SV76.8 mlBon [facility] Work Phone: [phone] VTI30.2 cmBon [facility] Work Phone: [phone]:AV VTI Index0.54Bon [facility] Work Phone: [phone] cmAbnormal0.6 - 0.9 cmBon [facility] Work Phone: MV A Velocity1.21 m/sBon [facility] Work Phone: [phone] Area by PHT2.3 cm2Bon [facility] Work Phone: [phone] Area by VTI1.2 cm2Bon [facility] Work Phone: [phone] E Velocity1.28 m/sBon [facility] Work Phone: [phone] E Wave Deceleration Nnza355.6 msChandler Regional Medical Center tamyca Work Phone: [phone] E/A1.06Bon [employer] Phone: MV Max Velocity1.7 m/sBon [facility] Work Phone: MV Mean Fgweikho8lhPeSgb [facility] Work Phone: MV Mean Velocity0.8 m/sBon [facility] Work Phone: MV Peak Tbyucpmc97tgJwSgc [facility] Work Phone: MV PHT95 ms[facility] Work Phone: MV VTI63.6 cmChandler Regional Medical Center tamyca Work Phone: MV:LVOT VTI Index2.11Bon [facility] Work Phone: PV Max Velocity0.9 m/sBon [facility] Work Phone: PV Peak Rrzsdveu3vaPaOzx tamyca Work Phone: RA Wqylmg42 mlBon tamyca Work Phone: [phone] Volume Index A4C18 mL/m2Bon tamyca Work Phone: [phone] Basal Dimension3.5 cmBon tamyca Work Phone: RV Longitudinal Dimension6.8 cmBon tamyca Work Phone: RV Mid Dimension2.5 cmBon tamyca Work Phone: [phone] tamyca Work Phone: TAPSE1.5 cmAbnormal1.7 cmBon tamyca Work Phone: TR Max Velocity2.75 m/sBon tamyca Work Phone: TR Peak Jsiwtvga18ohFiLbe tamyca Work Phone: Bon tamyca Work Phone: Cardiac echo study Procedureon 77-70-3086Qwgq Ventricle: Normal left ventricular systolic function. EF [...] function. TAPSE is abnormal. Aortic Valve: Intuity [id number] mechanical valve that is well-seated with a [...] functioning 21 mm Bassett Intuity bioprosthetic valve (2020) with mean gradient of 10 mmHg (expected [...] stenosis noted. Normal RVSP. Aortic Valve Intuity [id number] mechanical valve that is well-seated with a size of 21 mm. AV mean gradient is 10mmHg. Trace paravalvular regurgitation. No significant stenosis. Pulmonic [...] mmHG at a heart rate of 68 bpm.[facility] CV CPACSALL CBC WITH AUTO DIFFon 70-52-7202UIEBGJCTX ABSOLUTE AUTO0.1 [facility] HealthcareBasophils/100 WBC (Bld)0.9 %0.2 - 2.0 %[facility] Eosinophils/100 WBC (Bld)3.6 %0.9 - 7.0 %[facility] HealthcareErythrocyte distribution width (RBC) [Ratio]12 %11.0 - 15.0 %[facility] HealthcareHematocrit (Bld) [Volume fraction]33.2 %Low36.0 - 48.0 %[facility] HealthcareHemoglobin (Bld) [Mass/Vol]11.1 g/dLLow12.0 - 16.0 g/dLNOIN HealthcareIMMATURE GRANULOCYTES ABS AUTO0.02NOMS HealthcareImmature granulocytes/100 WBC (Bld)0.2 %0.0 - 0.5 %[facility] Interpretation and review of laboratory resultsAbnormalNOParkland Health Center LYMPHOCYTES ABSOLUTE AUTO2.5NOParkland Health CenterLymphocytes/100 WBC (Bld)31.6 %20.5 - 60.0 %[facility] SystemH (RBC) [Entitic mass]29.9 pg26.7 - 34.0 pgNOPike County Memorial HospitalHC (RBC) [Mass/Vol]33.4 g/dL29.9 - 35.2 g/dLRipley County Memorial HospitalMCV (RBC) [Entitic vol]89.5 fL81.0 - 99.0 fLRipley County Memorial HospitalMONOCYTES ABSOLUTE AUTO0.6NOMS HealthcareMonocytes/100 WBC (Bld)7 %1.7 - 12.0 %NOM HealthcareNEUTROPHILS ABSOLUTE AUTO4.6NOMS HealthcareNeutrophils/100 WBC (Bld)56.7 %43.0 - 75.0 %[facility] HospitalPlatelet mean volume (Bld) [Entitic vol]8.7 fLLow9.5 - 13.5 fLRipley County Memorial HospitalTBH EO #0.3NOMS HealthcareTB [id number] [facility] RBC3.71LowNOMS [facility] County HospitalTB WBC8.1NOMS HealthcareCLINISYNCNINTEGRIS HEALTH [facility]MON[facility] HealthcareCardiac echo study Procedureon 34-85-1038Qdqulossb Study observation (narrative)Vannesa [facility] 12-LEADon 52-03[place]5288[place]zw[place] [address] Electrocardiograph Report Signed Patient: ELEANOR MCCLAIN MR#: [id number] : 1950 Acct:[id number] Age/Sex: 73 / F ADM Date: 11/06/24 Loc: CARD Attending Dr: ANSHUL IRIZARRY Ordering Physician: ANSHUL IRIZARRY Date of Service: 11/06/24 Procedure(s): ECG 12 lead Accession Number(s): [id number] cc: [facility] Test Date: 2024-11-06 Pat Name: ELEANOR MCCLAIN Department: Room: - 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 Signed By: 11/06/24 1522 11/06/24 1522 DD/ 1320 TD/TT: Pest Control Chemical Technician: [facility] INFIRMARYCarlos Eduardo [facility] County HospitalRadiology Study observation (narrative)[facility] 12-LEAD Ordered By: Radiologist Radiology on 61-56-5581UBINRipley County Memorial Hospital Work Phone: Erythrocyte distribution width Auto (RBC) [Ratio]on 84-10-6914Szoupgqjfyy distribution width (RBC) [Ratio]Erythrocyte distribution width [Ratio] by Automated count11.0-15.0[facility] Estimated glomerular filtration rate (GFR) non- Americanon 10-08-2024 GFR/1.73 sq M.predicted among non-blacks MDRD (S/P/Bld) [Vol rate/Area]Estimated glomerular filtration rate (GFR) non- AmericanLow>=60 mL/min/1.73m [address] [place] [address] CBC WITH PLATELET NO DIFFERENTIALon 21-05-0867Szqwmcifzqw distribution width (RBC) [Ratio]12.1 %11.0 - 15.0 %[facility] HospitalHematocrit (Bld) [Volume fraction]37.2 %36.0 - 48.0 %[facility] Hemoglobin (Bld) [Mass/Vol]12.4 g/dL12.0 - 16.0 g/dLRipley County Memorial Hospital Interpretation and review of laboratory resultsAbnormalCameron Regional Medical Center (RBC) [Entitic mass]29.7 pg26.7 - 34.0 pgLake Regional Health SystemHC (RBC) [Mass/Vol]33.3 g/dL 29.9 - 35.2 g/dLLake Regional Health SystemV (RBC) [Entitic vol]89 fL81.0 - 99.0 fLRipley County Memorial HospitalPlatelet mean volume (Bld) [Entitic vol]8.9 fLLow9.5 - 13.5 fLMissouri Baptist Medical Center SIY977YYKHFulton State Hospital RBC4.18LowMissouri Baptist Medical Center WBC7.1NOMS HealthcareCLINISYNCNINTEGRIS HEALTH [facility]MON[facility] HealthcareHematocrit Auto (Bld) [Volume fraction]on 19-48-1187Bqtgvuyice (Bld) [Volume fraction]Hematocrit [Volume Fraction] of Blood by Automated count36.0-48.0[facility] HospitalHemoglobin [Mass/volume] in Bloodon 74-15-2260Yfgbsasesg (Bld) [Mass/Vol]Hemoglobin [Mass/volume] in Blood12.0-16.0[facility] HospitalIron binding capacity [Mass/volume] in Serum or Plasmaon 55-83-5678Nyav binding capacity [Mass/Vol]Iron binding capacity [Mass/volume] in Serum or Dihhnd826.0-450.0 [facility] HospitalIron saturation [Mass Fraction] in Serum or Plasmaon 65-48-9939Iwwq saturation [Mass fraction]Iron saturation [Mass Fraction] in Serum or PlasmaBrown Memorial HospitalLaboratory - Chemistry and Chemistry - challengeon 93-41-3201Sqjuicu [Mass/Vol]3.7 g/dL 3.4-5.0[facility] HospitalCalcium [Mass/Vol]9.7 mg/dL8.5-10.1 [facility] HospitalChloride [Moles/Vol]103 mmol/S05-865IoezvtizrBrown Memorial HospitalCO2 [Moles/Vol]29.8 mmol/L21.0-32.0[facility] HospitalCreatinine [Mass/Vol]1.92 mg/dLHigh0.55-1.02[facility] HospitalFerritin [Mass/Vol]84.0 ng/mL8.0-252.0[facility] HospitalGFR/1.73 sq M.predicted MDRD (S/P/Bld) [Vol rate/Area]31 mL/min/{1.73_m2} Low>=60 mL/min/1.73m 2FKettering Health Washington TownshipGlucose [Mass/Vol]245 mg/xWYxtv22-234MighohjzoBrown Memorial HospitalIron [Mass/Vol]67.0 ug/dL 50.0-170.0[facility] HospitalMagnesium [Mass/Vol]2.1 mg/dL1.8-2.4 [facility] HospitalPotassium [Moles/Vol]4.0 mmol/L3.5-5.1FUniversity Hospitals Portage Medical Centerodium [Moles/Vol]141 mmol/J668-050GijxuspjzBrown Memorial HospitalUrate [Mass/Vol]5.4 mg/dL2.6-6.0[facility] Urea nitrogen [Mass/Vol]27.0 mg/dLHigh7.0-18.0[facility] Urea nitrogen/Creatinine [Mass ratio]14.1 mg/mgBrown Memorial Hospital Laboratory - Urinalysison 21-87-2340Btnwxuv (U) [Mass/Vol]29.4 mg/dLHigh<=11.9 [facility] HospitalLeukocytes [#/volume] corrected for nucleated erythrocytes in Blood by Automated counon 53-95-0373EQK corrected for nucl RBC Auto (Bld) [#/Vol]Leukocytes [#/volume] corrected for nucleated erythrocytes in Blood by Automated coun4.0-11.0[facility] HospitalH Auto (RBC) [Entitic mass]on 18-42-3785ZIV (RBC) [Entitic mass]MCH [Entitic mass] by Automated count26.7-34.0[facility] HospitalMCHC Auto (RBC) [Mass/Vol]on 56-43-2824YDDW (RBC) [Mass/Vol]MCHC [Mass/volume] by Automated count29.9-35.2FKettering Health Washington TownshipMCV Auto (RBC) [Entitic vol]on 62-94-1038JJS (RBC) [Entitic vol]MCV [Entitic volume] by Automated count 81.0-99.0[facility] HospitalNo Panel Informationon 85-77-3257Aisxf Random Vyaeqqzvyj25.74 mg/dL20.00-300.00[facility]25- Hydroxy Vitamin D Total86.3 ng/mLBrown Memorial HospitalComment on above:<20 ng/mL Vit D bclphxmuy68-<30 ng/mL Vit D xtufhneryudi02-602 ng/mL Vit D sufficient>100 ng/mL Potential ToxicityParathyroid Hormone (Intact)56 pg/mL15-65 [facility] HospitalComment on above:Performed at: [address] [id number] Director: Jerrell Bautista PhD, Phone: [phone] Level4.3 mg/dL2.6-4.7FKettering Health Washington TownshipPlatelet mean volume Auto (Bld) [Entitic vol]on 89-13-5288Skfhoczd mean volume (Bld) [Entitic vol]Platelet mean volume [Entitic volume] in Blood by Automated countLow9.5-13.5FKettering Health Washington TownshipPlatelets Auto (Bld) [#/Vol]on 28-55-4111Kfkwbxmbc (Bld) [#/Vol]Platelets [#/volume] in Blood by Automated -753ZhsupwmojBrown Memorial HospitalRBC Auto (Bld) [#/Vol]on 66-82-7290LLX (Bld) [#/Vol]Erythrocytes [#/volume] in Blood by Automated count Low4.20-5.40Regency Hospital Companyerum or plasma anion gap determinationon 68-97-7554Pkjwf gap [Moles/Vol]Serum or plasma anion gap determinationBrown Memorial HospitalUrine protein/creatinine ratioon 14-40-3817Xdbfkbr/Creatinine (U) [Ratio]Urine protein/creatinine ratioBrown Memorial HospitalALL BASIC METABOLIC PANELon 46-98-3609Ercsh gap [Moles/Vol]8.4 mmol/LNOMS HealthcareCalcium [Mass/Vol]9.1 mg/dL8.5 - 10.1 mg/dL [facility] HealthcareChloride [Moles/Vol]104 mmol/L98 - 107 mmol/LNOMS HealthcareCO2 [Moles/Vol]33.6 mmol/LHigh21.0 - 32.0 mmol/LNOMS HealthcareCreatinine [Mass/Vol] 1.75 mg/dLHigh0.55 - 1.02 mg/dLNOMS HealthcareGFR/1.73 sq M.predicted CKD-EPI (S/P/Bld) [Vol rate/Area]34Low>=60 mL/min/1.73m 2NOMS HealthcareGlucose [Mass/Vol]116 mg/aKDmbh83 - 106 mg/dLNOMS HealthcareInterpretation and review of laboratory resultsAbnormalNOMS HealthcarePotassium [Moles/Vol]4 mmol/L3.5 - 5.1 mmol/LNOMS HealthcareSodium [Moles/Vol]142 mmol/L136 - 145 mmol/LNOMS HealthcareTBH EGFR-NON AF LMRIDNXI31Vzq>=60 mL/min/1.73m 2NOMS HealthcareUrea nitrogen [Mass/Vol]23 mg/dLHigh7.0 - 18.0 mg/dLNOMS HealthcareUrea nitrogen/Creatinine [Mass ratio]13.1 mg/mgNOMS HealthcareCLINISYNCNOMS HealthcareHEMOGLOBIN A1con 37-04-7656GYIDEMDFUU A1c6.4 % of total HgbHigh<5.7 [facility] DiagnosticsComment on above:Order Comment: FASTING:NO FASTING: NOResult Comment: For someone without known diabetes, a [...] hemoglobin A1c for diagnosis of diabetes for children.Performed By: #### 496 #### [facility] [address], [address] [place] [address] Telecommunication Tower Technician: Stephan Kline [facility] CBC WITH AUTO DIFFon 51-25-0861YKVARDBSJ ABSOLUTE AUTO0.1N[facility] HealthcareBasophils/100 WBC (Bld)1.3 %0.2 - 2.0 %[facility] HealthcareEosinophils/100 WBC (Bld)4.6 %0.9 - 7.0 %[facility] HealthcareErythrocyte distribution width (RBC) [Ratio]11.9 %11.0 - 15.0 %[facility] HealthcareHematocrit (Bld) [Volume fraction]33.6 %Low36.0 - 48.0 %[facility] HealthcareHemoglobin (Bld) [Mass/Vol]11.2 g/dLLow12.0 - 16.0 g/dLNOMS HealthcareIMMATURE GRANULOCYTES ABS AUTO0.01N[facility] HealthcareImmature granulocytes/100 WBC (Bld)0.1 %0.0 - 0.5 %[facility] HealthcareInterpretation and review of laboratory resultsAbnormalNOMS Healthcare LYMPHOCYTES ABSOLUTE AUTO2.2NOMS HealthcareLymphocytes/100 WBC (Bld)31.2 %20.5 - 60.0 %NOMS [facility] HospitalH (RBC) [Entitic mass]30.4 pg26.7 - 34.0 pgNOPike County Memorial HospitalHC (RBC) [Mass/Vol]33.3 g/dL29.9 - 35.2 g/dLNOIN HealthcareV (RBC) [Entitic vol]91.3 fL81.0 - 99.0 fLNOIN HealthcareMONOCYTES ABSOLUTE AUTO0.5NOMS HealthcareMonocytes/100 WBC (Bld)7.6 %1.7 - 12.0 %N[facility] HealthcareNEUTROPHILS ABSOLUTE CFDM2DWUF HealthcareNeutrophils/100 WBC (Bld)55.2 %43.0 - 75.0 %N[facility] HealthcarePlatelet mean volume (Bld) [Entitic vol]8.7 fLLow9.5 - 13.5 fLNOMS HealthcareTBH EO #0.3NOMS HealthcareTBH APD949RBCN HealthcareTB RBC3.68LowNOMS HealthcareTB WBC7.2NOMS HealthcareCLINISYNCNINTEGRIS HEALTH EDMOND [facility] EDMOND HealthcareECG 12-LEADon 43-20-1870Kwy[place], [place] [address] Electrocardiograph Report Signed Patient: ELEANOR MCCLAIN MR#: [id number] : 1950 Acct:[id number] Age/Sex: 73 / F ADM Date: 05/02/24 Loc: CARD Attending Dr: GeovannyStaff Physician Sheriff Ordering Physician: Beth Lancaster M.D. 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 Signed By: 05/02/24201505/02/242015 DD/ 54 TD/TT: Pest Control Chemical Technician:RAIMUNDOadiologLorena joel, - 05/02/2024 [place] [address] Electrocardiograph Report Signed Patient: ELEANOR MCCLAIN MR#: [id number] : 1950 Acct:[id number] Age/Sex: 73 / F ADM Date: 05/02/24 Loc: CARD Attending Dr: Non-Staff Physician Sharita Ordering Physician: Beth Lancaster M.D. 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 Signed By: 05/02/24201505/02/242015 DD/ 1055 TD/TT: Pest Control Chemical Technician: DYLAN HealthcareRadiology Study observation (narrative)NOMS HealthcareECG 12-LEAD Ordered By: Radiologist Radiology on 43-11-5188THYU Healthcare Work Phone: albumin [Mass/volume] in Serum or Plasma by Bromocresol green (BCG) dye binding methoOrdered By: Morgan Womack on 04-10-2024 Albumin BCG dye [Mass/Vol]Albumin [Mass/volume] in Serum or Plasma by Bromocresol green (BCG) dye binding metho3.5-5.7Firelands Regional Medical CenterAppearance of UrineOrdered By: Morgan Womack on 82-63-2026Wybginpdrm (U) Urine appearanceCleCleveland Clinic Lutheran HospitalBacteria [Presence] in Urine by AutomatedOrdered By: Morgan Womack on 62-79-9839Wjjevqrg Auto Ql (U) Bacteria [Presence] in Urine by AutomatedHighNone SeenBrown Memorial HospitalBilirubin Test strip Ql (U)Ordered By: Morgan Womack on 69-23-8172Irmmitcde Ql (U)Bilirubin.total [Presence] in Urine by Test stripNegativeBrown Memorial HospitalCalcium [Mass/volume] in Serum or PlasmaOrdered By: Morgan Womack on 78-80-3297Ekfaqjb [Mass/Vol]Calcium [Mass/volume] in Serum or Plasma 8.6-10.3FKettering Health Washington TownshipCarbon dioxide, total [Moles/volume] in Serum or PlasmaOrdered By: Morgan Womack on 36-96-6191MC5 [Moles/Vol]Carbon dioxide, total [Moles/volume] in Serum or Jccloj01.0-31.0[facility] Memorial HospitalChloride [Moles/volume] in Serum or PlasmaOrdered By: Morgan Womack on 09-51-3006Ioggqqqi [Moles/Vol]Chloride [Moles/volume] in Serum or Plasma 98-107Brown Memorial HospitalColor Auto (U)Ordered By: Morgan Womack on 97-25-3304Czvrl (U)Color of Urine by AutoYellowBrown Memorial Hospital Creatinine [Mass/volume] in Serum or PlasmaOrdered By: Mogran Womack on 04-10-2024 Creatinine [Mass/Vol]Creatinine [Mass/volume] in Serum or PlasmaHigh0.60-1.20 [facility] HospitalCreatinine [Mass/volume] in UrineOrdered By: Morgan Womack on 39-21-2482Prjxytbmps (U) [Mass/Vol]Creatinine [Mass/volume] in UrineBrown Memorial HospitalComment on above:No reference range establishedDipstick and Microscopicon 53-41-5331Axmuyfafff (U)ClearNormalClear The [facility] Physician GroupComment on above:Order Comment: Name Collection Type:: Clean-Voided MidstreamPerformed By: #### PTH, CLAUDY, RENAL, FE and TIBC, CBCNO, UTCB11CH, MG, LWOB07GFG, URIC #### [address] #### KAPPA, SHORTY SERUM, SPE W INTERPRET #### [facility] ,Bacteria,Urine4+HighNone SeenRiver Point Behavioral Health Physician GroupComment on above: Order Comment: Name Collection Type:: Clean-Voided MidstreamPerformed By: #### PTH, CLAUDY, RENAL, FE and TIBC, CBCNO, [id number], MG, UKFX75QRY, URIC #### [address] #### KAPPA, SHORTY SERUM, SPE W INTERPRET #### [facility] ,Bilirubin,UrineNegativeNormalNegativeThe [facility] Physician GroupComment on above:Order Comment: Name Collection Type:: Clean-Voided MidstreamPerformed By: #### PTH, CLAUDY, RENAL, FE and TIBC, CBCNO, UIPQ24HH, MG, [id number], URIC #### [address] #### KAPPA, SHORTY SERUM, SPE W INTERPRET #### [facility] ,Color (U)ColorlessNormalYellowRiver Point Behavioral Health Physician GroupComment on above: Order Comment: Name Collection Type:: Clean-Voided MidstreamPerformed By: #### PTH, CLAUDY, RENAL, FE and TIBC, CBCNO, ZOII41MH, MG, KJNL31EXO, URIC #### [address] #### KAPPA, SHORTY SERUM, SPE W INTERPRET #### [facility] ,Glucose Ql (U)NormalNormalNormalThe [facility] Physician GroupComment on above: Order Comment: Name Collection Type:: Clean-Voided MidstreamPerformed By: #### PTH, CLAUDY, RENAL, FE and TIBC, CBCNO, [id number], MG, NUGN29UIS, URIC #### [address] #### KAPPA, SHORTY SERUM, SPE W INTERPRET #### [facility] ,Hyaline Casts,Urine0 [LPF]Normal0-8The [facility] Physician GroupComment on above:Order Comment: Name Collection Type:: Clean-Voided MidstreamPerformed By: #### PTH, CLAUDY, RENAL, FE and TIBC, CBCNO, [id number], MG, QXYG31UWI, URIC #### [address] #### KAPPA, SHORTY SERUM, SPE W INTERPRET #### [facility] ,Ketones Ql (U)NegativeNormalNegativeThe [facility] Physician GroupComment on above:Order Comment: Name Collection Type:: Clean-Voided MidstreamPerformed By: #### PTH, CLAUDY, RENAL, FE and TIBC, CBCNO, [id number], MG, PIRI74SEG, URIC #### [address] #### KAPPA, SHORTY SERUM, SPE W INTERPRET #### [facility] ,Leukocyte esterase Test strip Ql (U)3+HighNegativeThe [facility] Physician Group Comment on above:Order Comment: Name Collection Type:: Clean-Voided Midstream Performed By: #### PTH, CLAUDY, RENAL, FE and TIBC, CBCNO, [id number], MG, [id number], URIC #### [address] #### KAPPA, SHORTY SERUM, SPE W INTERPRET #### [facility] ,Mucus,UrineRareNormalThe [facility] Physician GroupComment on above:Order Comment: Name Collection Type:: Clean-Voided MidstreamResult Comment: PERFORMED BY: [address] [place] [address] PATHOLOGIST DETENTION OFFICER CARON MUNOZ M.D.Performed By: #### PTH, CLAUDY, RENAL, FE and TIBC, CBCNO, JDDE06VL, MG, MFTO24YEX, URIC #### [address] #### KAPPA, SHORTY SERUM, SPE W INTERPRET #### [facility] ,Nitrite,UrineNegativeNormalNegativeThe [facility] Physician GroupComment on above:Order Comment: Name Collection Type:: Clean-Voided MidstreamPerformed By: #### PTH, CLAUDY, RENAL, FE and TIBC, CBCNO, [id number], MG, RBZR34XMB, URIC #### [address] #### KAPPA, SHORTY SERUM, SPE W INTERPRET #### [facility] ,Occult Blood,UrineNegativeNormalNegativeThe [facility] Physician GroupComment on above:Order Comment: Name Collection Type:: Clean-Voided MidstreamPerformed By: #### PTH, CLAUDY, RENAL, FE and TIBC, CBCNO, ZZUS64BX, MG, [id number], URIC #### [address] #### KAPPA, SHORTY SERUM, SPE W INTERPRET #### [facility] ,pH (U)6.5 [pH]Normal5.0-9.0The [facility] Physician GroupComment on above:Order Comment: Name Collection Type:: Clean-Voided MidstreamPerformed By: #### PTH, CLAUDY, RENAL, FE and TIBC, CBCNO, AHCL67LT, MG, VYDL67OUP, URIC #### [address] #### KAPPA, SHORTY SERUM, SPE W INTERPRET #### [facility] ,Protein,UrineNegativeNormalNegativeThe [facility] Physician GroupComment on above:Order Comment: Name Collection Type:: Clean-Voided MidstreamPerformed By: #### PTH, CLAUDY, RENAL, FE and TIBC, CBCNO, [id number], MG, EMQN13VLP, URIC #### [address] #### KAPPA, SHORTY SERUM, SPE W INTERPRET #### [facility] ,RBC,Urine1 [HPF]Normal0-4The [facility] Physician GroupComment on above:Order Comment: Name Collection Type:: Clean-Voided MidstreamPerformed By: #### PTH, CLAUDY, RENAL, FE and TIBC, CBCNO, HGUY43LG, MG, LRMN36WXD, URIC #### [address] #### KAPPA, SHORTY SERUM, SPE W INTERPRET #### [facility] ,Specificy [place],Urine1.218Riovwd8.001-1.030The [facility] Comment on above:Order Comment: Name Collection Type:: Clean-Voided Midstream Performed By: #### PTH, CLAUDY, RENAL, FE and TIBC, CBCNO, YMDC34GW, MG, MOXA70YYY, URIC #### [address] #### KAPPA, SHORTY SERUM, SPE W INTERPRET #### [facility] ,Squamous Epithelial Cell,Urine1 [HPF]Normal0-2[facility] Comment on above:Order Comment: Name Collection Type:: Clean-Voided Midstream Performed By: #### PTH, CLAUDY, RENAL, FE and TIBC, CBCNO, UPZV35ZE, MG, [id number], URIC #### [address] #### KAPPA, SHORTY SERUM, SPE W INTERPRET #### [facility] ,Urobilinogen,UrineNormalNormalNormalThe [facility] Physician GroupComment on above:Order Comment: Name Collection Type:: Clean-Voided MidstreamPerformed By: #### PTH, CLAUDY, RENAL, FE and TIBC, CBCNO, [id number], MG, [id number], URIC #### [facility] [address] [place] [address] [place] #### KAPPA, SHORTY SERUM, SPE W INTERPRET #### [facility] ,WBC,Urine20 [HPF]High0-4The [facility] Physician GroupComment on above:Order Comment: Name Collection Type:: Clean-Voided MidstreamPerformed By: #### PTH, CLAUDY, RENAL, FE and TIBC, CBCNO, [id number], MG, [id number], URIC #### [facility] [address] [place] [address] [place] #### KAPPA, SHORTY SERUM, SPE W INTERPRET #### [facility] ,Epithelial cells.squamous [#/area] in Urine sediment by Automated countOrdered By: Morgan Womack on 26-14-2359Vwgpkjdvxy cells.squamous Auto (Urine sed) [#/Area] Epithelial cells.squamous [#/area] in Urine sediment by Automated count0-2 [facility] Memorial HospitalErythrocyte distribution width Auto (RBC) [Ratio]Ordered By: Morgan Womack on 24-14-4405Kqdystuwcbj distribution width (RBC) [Ratio]Erythrocyte distribution width [Ratio] by Automated count11.9-15.3 [facility] HospitalErythrocytes [#/area] in Urine sediment by Automated countOrdered By: Morgan Womack on 06-82-8379QXS Auto (Urine sed) [#/Area]Erythrocytes [#/area] in Urine sediment by Automated count0-4FKettering Health Washington TownshipFerritinon 29-70-4936Zvqymavt [Mass/Vol]23.3 ng/mLNormal 11.0-306.8The [facility] Physician GroupComment on above:Performed By: #### PTH, CLAUDY, RENAL, FE and TIBC, CBCNO, IFWD14HQ, MG, DWDE93PDW, URIC #### [facility] [address] [place] [address] [place] #### KAPPA, SHORTY SERUM, SPE W INTERPRET #### [facility] ,Ferritin [Mass/volume] in Serum or PlasmaOrdered By: Morgan Womack on 04-10-2024 Ferritin [Mass/Vol]Ferritin [Mass/volume] in Serum or Qqnnnl94.0-306.8Brown Memorial HospitalFolate [Mass/volume] in Serum or PlasmaOrdered By: Morgan Womack on 67-56-5855Hmcqmu [Mass/Vol]Folate [Mass/volume] in Serum or Plasma>5.9 [facility] HospitalComment on above:Folate reference range: >5.9 ng/mlThe WHO technical consultation on folate and vitamin w03kzvygejksgql has determined that folate concentrations lessthan 4 ng/ml are considered deficient. Free K+L LT Chains, Qn, Son 18-19-3606Ixot [place] Light Chains, S40.0 mg/LHigh 3.3-19.4The [facility] Physician GroupComment on above:Performed By: #### PTH, CLAUDY, RENAL, FE and TIBC, CBCNO, [id number], MG, AAPM57DRZ, URIC #### [facility] [address] [place] [address] #### KAPPA, SHORTY SERUM, SPE W INTERPRET #### [facility] ,Free Lambda Light Chains, S24.4 mg/LNormal5.7-26.3[facility] Comment on above:Performed By: #### PTH, CLAUDY, RENAL, FE and TIBC, CBCNO, [id number], MG, [id number], URIC #### [facility] [address] [place] [address] [place] #### KAPPA, SHORTY SERUM, SPE W INTERPRET #### [facility] ,[place]/Lambda Ratio, S1.89Yondiz4.26-1.65The [facility] Physician GroupComment on above:Result Comment: Performed at: - [facility] [address] [id number] Baseball Pitcher: Jerrell Bautista PhD, Phone: [phone] PERFORMED BY: [place] [address] PATHOLOGIST DETENTION OFFICER CARON MUNOZ M.D.Performed By: #### PTH, CLAUDY, RENAL, FE and TIBC, CBCNO, GIUO76HJ, MG, TGFL55YHA, URIC #### [facility] [address] [place] [address] [place] #### KAPPA, SHORTY SERUM, SPE W INTERPRET #### [facility] ,Glucose [Mass/volume] in Serum or PlasmaOrdered By: Morgan Womack on 04-10-2024 Glucose [Mass/Vol]Glucose [Mass/volume] in Serum or Uxsdnv94-796GxfekpmpzBrown Memorial HospitalComment on above:ADA recommended reference rangeRandom Glucose Reference Range is dependent on time and content of last meal. Glucose of more than 200 mg/dL in a nonstressed, ambulatory subject supports the diagnosisof Diabetes Mellitus.Glucose [Mass/volume] in Urine by Test strip Ordered By: Morgan Womack on 52-37-0010Fxqeopp Test strip (U) [Mass/Vol]Glucose [Mass/volume] in Urine by Test stripNormalBrown Memorial Hospital Hematocrit Auto (Bld) [Volume fraction]Ordered By: Morgan Womack on 04-10-2024 Hematocrit (Bld) [Volume fraction]Hematocrit [Volume Fraction] of Blood by Automated hbivsRpl75.0-46.4FKettering Health Washington TownshipHemoglobin Test strip Ql (U)Ordered By: Morgan Womack on 53-83-3135Xjzgnkvysz Ql (U)Hemoglobin [Presence] in Urine by Test stripNegativeBrown Memorial Hospital Hemoglobin [Mass/volume] in BloodOrdered By: Morgan Womack on 32-98-6115Spqvercyns (Bld) [Mass/Vol]Hemoglobin [Mass/volume] in LyaxsFgb87.8-15.4FKettering Health Washington TownshipHemogram CBC Without Diffon 42-74-6608Ysrtuxgfmuj distribution width (RBC) [Ratio]12.7 %Krxpix22.9-15.3The [facility] Physician GroupComment on above:Performed By: #### PTH, CLAUDY, RENAL, FE and TIBC, CBCNO, PSDV76NT, MG, DENL12UYL, URIC #### [facility] [address] [place] [address] [place] #### KAPPA, SHORTY SERUM, SPE W INTERPRET #### [facility] ,Hematocrit (Bld) [Volume fraction]31.9 %Low34.0-46.4The [facility] Physician GroupComment on above:Performed By: #### PTH, CLAUDY, RENAL, FE and TIBC, CBCNO, PRXV41TO, MG, TRLA19RWG, URIC #### [address] #### KAPPA, SHORTY SERUM, SPE W INTERPRET #### [facility] ,Hemoglobin (Bld) [Mass/Vol]10.9 g/dLLow11.8-15.4[facility] Comment on above:Performed By: #### PTH, CLAUDY, RENAL, FE and TIBC, CBCNO, YMPV84YJ, MG, OOOZ64MQP, URIC #### [address] #### KAPPA, SHORTY SERUM, SPE W INTERPRET #### [facility] ,MCH (RBC) [Entitic mass]30.3 foGuctjq07.7-34.3[facility] Comment on above:Performed By: #### PTH, CLAUDY, RENAL, FE and TIBC, CBCNO, PIML17XR, MG, DQRX19SMH, URIC #### [place] [address] [place] #### KAPPA, SHORTY SERUM, SPE W INTERPRET #### [facility] ,MCV (RBC) [Entitic vol]88.7 xNHmdqmd35-251Erl [facility] Physician GroupComment on above:Performed By: #### PTH, CLAUDY, RENAL, FE and TIBC, CBCNO, JDXG54YB, MG, ZFSL44IOX, URIC #### [place] [address] [place] #### KAPPA, SHORTY SERUM, SPE W INTERPRET #### [facility] ,Mean Corpuscular HGB Conc34.2 g/ePMsuwyw93.0-35.0[facility] Comment on above:Performed By: #### PTH, CLAUDY, RENAL, FE and TIBC, CBCNO, [id number], MG, PZNG45AQA, URIC #### [address] #### KAPPA, SHORTY SERUM, SPE W INTERPRET #### [facility] ,Platelet mean volume (Bld) [Entitic vol]7.6 fLNormal6.3-10.7The [facility] Physician GroupComment on above:Result Comment: PERFORMED BY: [place] [address] PATHOLOGIST DETENTION OFFICER CARON MUNOZ M.D.Performed By: #### PTH, CLAUDY, RENAL, FE and TIBC, CBCNO, TSWQ00NP, MG, RZAM91UJS, URIC #### [address] #### KAPPA, SHORTY SERUM, SPE W INTERPRET #### [facility] ,Platelets (Bld) [#/Vol]252 10*3/hRUmnlhm814-257Tzu [facility] Comment on above:Performed By: #### PTH, CLAUDY, RENAL, FE and TIBC, CBCNO, AXEA31AR, MG, FHMJ34KAE, URIC #### [address] #### KAPPA, SHORTY SERUM, SPE W INTERPRET #### [facility] ,RBC (Bld) [#/Vol]3.60 10*6/uLNormal3.60-5.00[facility] Comment on above:Performed By: #### PTH, CLAUDY, RENAL, FE and TIBC, CBCNO, BHWX51FJ, MG, AHSE48NEV, URIC #### [address] #### KAPPA, SHORTY SERUM, SPE W INTERPRET #### [facility] ,WBC (Bld) [#/Vol]8.0 10*3/uLNormal3.8-11.6The [facility] Physician GroupComment on above:Performed By: #### PTH, CLAUDY, RENAL, FE and TIBC, CBCNO, ZZIR41LT, MG, FZES62LNV, URIC #### [address] #### KAPPA, SHORTY SERUM, SPE W INTERPRET #### [facility] ,Hyaline casts [#/area] in Urine sediment by Automated countOrdered By: Morgan Womack on 58-60-5088Jclxcgb casts Auto (Urine sed) [#/Area]Hyaline casts [#/area] in Urine sediment by Automated count0-8[facility] Immunofixation, (SHORTY), Urineon 02-09-4999Ywvqadxyartnoa, (SHORTY), UrineComment Normal.The [facility] Physician GroupComment on above:Result Comment: No monoclonality detected. Performed at: - [facility] [id number] Baseball Pitcher: Jerrell Bautista PhD, Phone: [phone] PERFORMED BY: [place] [address] PATHOLOGIST DETENTION OFFICER CARON MUNOZ M.D.Performed By: #### PTH, CLAUDY, RENAL, FE and TIBC, CBCNO, ASLP32SZ, MG, ROSI03KRT, URIC #### [address] #### KAPPA, SHORTY SERUM, SPE W INTERPRET #### [facility] ,Immunofixation,Serumon 42-96-4336Jhidjduwlibtwp, SerumCommentNormal.The [facility] Physician GroupComment on above:Result Comment: No monoclonality detected.Performed By: #### PTH, CLAUDY, RENAL, FE and TIBC, CBCNO, NYJN86BI, MG, GIQI87NHN, URIC #### [place] [address] [place] #### KAPPA, SHORTY SERUM, SPE W INTERPRET #### [facility] ,Immunoglobulin A, Zehvi183 mg/nHZhvzko09-075Efd [facility] Comment on above:Performed By: #### PTH, CLAUDY, RENAL, FE and TIBC, CBCNO, STOJ32SQ, MG, LUOD49HJI, URIC #### [facility] [address] [place] [address] #### KAPPA, SHORTY SERUM, SPE W INTERPRET #### [facility] ,Immunoglobulin G989 mg/nMGjdnai243-9929Ddn [facility] Physician [facility] Promise Of VicksburgComment on above:Performed By: #### PTH, CLAUDY, RENAL, FE and TIBC, CBCNO, ZYKA75NK, MG, PPFM02YSZ, URIC #### [facility] [address] [place] [address] #### KAPPA, HSORTY SERUM, SPE W INTERPRET #### [facility] ,Immunoglobulin M, Serum66 mg/wOAhialh40-375Lgr [facility] Physician GroupComment on above:Result Comment: Performed at: - [place] [id number] Baseball Pitcher: Jerrell Bautista PhD, Phone: [phone] By: #### PTH, CLAUDY, RENAL, FE and TIBC, CBCNO, RIIP79CB, MG, ARBD05YJS, URIC #### [place] [address] [place] #### KAPPA, SHORTY SERUM, SPE W INTERPRET #### [facility] ,Iron [Mass/volume] in Serum or PlasmaOrdered By: Morgan Womack on 47-99-0324Mtvg [Mass/Vol]Iron [Mass/volume] in Serum or Bzngen39-879ZegkpwhepBrown Memorial HospitalIron and TIBC Profileon 04-10-2024% Iron Snlfthwekl13.2 %Omz19-83Zlx [facility] Physician GroupComment on above:Performed By: #### PTH, CLAUDY, RENAL, FE and TIBC, CBCNO, NOSR12OA, MG, SZIB10GLW, URIC #### [facility] [address] [place] [address] [place] #### KAPPA, SHORTY SERUM, SPE W INTERPRET #### [facility] ,Iron [Mass/Vol]61 ug/hCMcipag19-387Ulz [facility] Physician GroupComment on above:Performed By: #### PTH, CLAUDY, RENAL, FE and TIBC, CBCNO, OHBS63JX, MG, KAIY20HDF, URIC #### [place] [address] [place] #### KAPPA, SHORTY SERUM, SPE W INTERPRET #### [facility] ,Total Iron Binding Ccnawbib119 ug/aKNotjkt951-981Wtv [facility] Comment on above:Performed By: #### PTH, CLAUDY, RENAL, FE and TIBC, CBCNO, EAPJ28HI, MG, PZOF96VPU, URIC #### [place] [address] [place] #### KAPPA, SHORTY SERUM, SPE W INTERPRET #### [facility] ,Transferrin [Mass/Vol]287 mg/jNYcpgbm171-678Hwl [facility] Comment on above:Performed By: #### PTH, CLAUDY, RENAL, FE and TIBC, CBCNO, IXOJ80FY, MG, EPAG19SCX, URIC #### [place] [address] [place] #### KAPPA, SHORTY SERUM, SPE W INTERPRET #### [facility] ,Ketones Test strip Ql (U)Ordered By: Morgan Womack on 63-53-5617Auwdpoa Ql (U) Ketones [Presence] in Urine by Test stripNegCincinnati VA Medical CenterLeukocyte esterase [Presence] in Urine by Test stripOrdered By: Morgan Womack on 09-99-6989Lfrxoqsvc esterase Test strip Ql (U)Leukocyte esterase [Presence] in Urine by Test stripHighNegCincinnati VA Medical Center Leukocytes [#/area] in Urine sediment by Automated countOrdered By: Morgan Womack on 55-63-1930AZT Auto (Urine sed) [#/Area]Leukocytes [#/area] in Urine sediment by Automated countHigh0-4FKettering Health Washington TownshipLeukocytes [#/volume] corrected for nucleated erythrocytes in Blood by Automated counOrdered By: Morgan Womack on 34-11-3774JLB corrected for nucl RBC Auto (Bld) [#/Vol]Leukocytes [#/volume] corrected for nucleated erythrocytes in Blood by Automated coun 3.8-11.6FMetroHealth Parma Medical Center Auto (RBC) [Entitic mass]Ordered By: Morgan Womack on 37-66-7184HNN (RBC) [Entitic mass]MCH [Entitic mass] by Automated count24.7-34.3FOhioHealth Shelby HospitalHC Auto (RBC) [Mass/Vol]Ordered By: Morgan Womack on 25-35-4670MLUD (RBC) [Mass/Vol]MCHC [Mass/volume] by Automated count32.0-35.0[facility] HospitalV Auto (RBC) [Entitic vol]Ordered By: Morgan Womack on 01-53-9030SNY (RBC) [Entitic vol]MCV [Entitic volume] by Automated rrcip79-520QesbogeduBrown Memorial HospitalMagnesiumon 35-43-8264Ggrdofmuf [Mass/Vol]2.3 mg/dLNormal1.9-2.7The [facility] Physician GroupComment on above:Performed By: #### PTH, CLAUDY, RENAL, FE and TIBC, CBCNO, GARD86NX, MG, YRDA64DSP, URIC #### [facility] [address] #### KAPPA, SHORTY SERUM, SPE W INTERPRET #### [facility] ,Magnesium [Mass/volume] in Serum or PlasmaOrdered By: Morgan Womack on 04-10-2024 Magnesium [Mass/Vol]Magnesium [Mass/volume] in Serum or Plasma1.9-2.7FKettering Health Washington TownshipMucus [Presence] in Urine by AutomatedOrdered By: Morgan Womack on 81-00-3850Pgjro Auto Ql (U)Mucus [Presence] in Urine by Automated [facility] Memorial HospitalNitrite Test strip Ql (U)Ordered By: Morgan Womack on 55-47-6047Imwszwu Ql (U)Nitrite [Presence] in Urine by Test strip NegativeBrown Memorial HospitalNo Panel InformationOrdered By: Morgan Womack on 45-70-7506Ktcwwbhlu GFR (CKD-EPI)36.116 mL/MinBrown Memorial HospitalPharmacy Creatinine Clearance (ChemN/AFKettering Health Washington TownshipProtein Electrophoresis InterpretComment.[facility] Comment on above:The SPE pattern appears unremarkable. Evidence ofmonoclonal protein is not apparent.Performed at: [place] [id number] Director: Jerrell Bautista PhD, Phone: [phone] Protein Electrophoresis M-SpikeNot observed g/dLNot ObservedBrown Memorial HospitalProtein Electrophoresis NoteComment.[facility] Memorial HospitalComment on above:Protein electrophoresis scan will follow via computer,mail, or epic cupid analyst delivery.Parathyrin.intact [Mass/volume] in Serum or PlasmaOrdered By: Morgan Womack on 16-76-0749Ivnbgvxayj.intact [Mass/Vol] Parathyrin.intact [Mass/volume] in Serum or Rmunhv06-66NtkifitkrBrown Memorial HospitalParathyroid Hormone Intacton 96-41-6236Qmbpoudwhjj Hormone Intact 50.5 pg/yHDkwhgh72-23Ynp [facility] Physician GroupComment on above:Result Comment: PERFORMED BY: [place] [address] PATHOLOGIST DETENTION OFFICER CARON MUNOZ M.D.Performed By: #### PTH, CLAUDY, RENAL, FE and TIBC, CBCNO, CDYM00MC, MG, MLHW34GRM, URIC #### [address] #### KAPPA, SHORTY SERUM, SPE W INTERPRET #### [facility] ,Phosphate [Mass/volume] in Serum or PlasmaOrdered By: Morgan Womack on 04-10-2024 Phosphate [Mass/Vol]Phosphate [Mass/volume] in Serum or Plasma2.5-4.5FKettering Health Washington TownshipPlatelet mean volume Auto (Bld) [Entitic vol]Ordered By: Morgan Womack on 72-22-4581Qcftgzyv mean volume (Bld) [Entitic vol]Platelet mean volume [Entitic volume] in Blood by Automated count6.3-10.7FKettering Health Washington TownshipPlatelets Auto (Bld) [#/Vol]Ordered By: Morgan Womack on 04-10-2024 Platelets (Bld) [#/Vol]Platelets [#/volume] in Blood by Automated qfdua814-983 [facility] HospitalPotassium [Moles/volume] in Serum or Plasma Ordered By: Morgan Womack on 70-04-7500Wuyyzugbt [Moles/Vol]Potassium [Moles/volume] in Serum or Plasma3.5-5.1FKettering Health Washington TownshipProt Electrophoresis w/Interpon 87-22-0261Ltrazsm [Mass/Vol]3.9 g/dLNormal2.9-4.4The [facility] Physician GroupComment on above:Performed By: #### PTH, CLAUDY, RENAL, FE and TIBC, CBCNO, HNXM07SU, MG, DZSN20WZN, URIC #### [facility] [address] [place] [address] [place] #### KAPPA, SHORTY SERUM, SPE W INTERPRET #### [facility] ,Albumin/Globulin [Mass ratio]1.3 {ratio}Normal0.7-1.7The [facility] Physician GroupComment on above:Performed By: #### PTH, CLAUDY, RENAL, FE and TIBC, CBCNO, BFSS75MU, MG, IHBM08VTB, URIC #### [facility] [address] [place] [address] [place] #### KAPPA, SHORTY SERUM, SPE W INTERPRET #### [facility] ,Iqnmn-0-Lojmaseh8.2 g/dLNormal0.0-0.4The [facility] Physician GroupComment on above:Performed By: #### PTH, CLAUDY, RENAL, FE and TIBC, CBCNO, MOCF61KS, MG, FPME46UMI, URIC #### [address] #### KAPPA, SHORTY SERUM, SPE W INTERPRET #### [facility] ,Noozq-7-Pjtkezjt4.8 g/dLNormal0.4-1.0The [facility] Physician GroupComment on above:Performed By: #### PTH, CLAUDY, RENAL, FE and TIBC, CBCNO, FWEC72SU, MG, BWBV55SJK, URIC #### [address] #### KAPPA, SHORTY SERUM, SPE W INTERPRET #### [facility] ,Beta Globulin1.0 g/dLNormal0.7-1.3The [facility] Physician GroupComment on above:Performed By: #### PTH, CLAUDY, RENAL, FE and TIBC, CBCNO, DAMA95YV, MG, VXIU03GPO, URIC #### [address] #### KAPPA, SHORTY SERUM, SPE W INTERPRET #### [facility] ,Gamma Globulin1.0 g/dLNormal0.4-1.8The [facility] Physician GroupComment on above:Performed By: #### PTH, CLAUDY, RENAL, FE and TIBC, CBCNO, TCSG85UY, MG, IJRE47PGB, URIC #### [place] [address] [place] #### KAPPA, SHORTY SERUM, SPE W INTERPRET #### [facility] ,Globulin (S) [Mass/Vol]2.9 g/dLNormal2.2-3.9The [facility] Comment on above:Performed By: #### PTH, CLAUDY, RENAL, FE and TIBC, CBCNO, MDYE44BQ, MG, YNJM98JSC, URIC #### [address] #### KAPPA, SHORTY SERUM, SPE W INTERPRET #### [facility] ,M-SpikeNot ObservedNormalNot ObservedThe [facility] Physician GroupComment on above:Performed By: #### PTH, CLAUDY, RENAL, FE and TIBC, CBCNO, QMPM02XY, MG, IHCQ16RQI, URIC #### [address] #### KAPPA, SHORTY SERUM, SPE W INTERPRET #### [facility] ,Protein [Mass/Vol]6.8 g/dLNormal6.0-8.5The [facility] Physician GroupComment on above:Performed By: #### PTH, CLAUDY, RENAL, FE and TIBC, CBCNO, DKUB56SA, MG, ZUEU19UWW, URIC #### [address] #### KAPPA, SHORTY SERUM, SPE W INTERPRET #### [facility] ,SPE-InterpretationCommentNormal.The [facility] Physician GroupComment on above: Result Comment: The SPE pattern appears unremarkable. Evidence of monoclonal protein is not apparent. Performed at: [facility] [id number] Baseball Pitcher: Jerrell Bautista PhD, Phone: [phone] By: #### PTH, CLAUDY, RENAL, FE and TIBC, CBCNO, FDRO07YV, MG, WZDY89DHW, URIC #### [place] [address] [place] #### KAPPA, SHORTY SERUM, SPE W INTERPRET #### [facility] ,SPE-NoteCommentNormal.The [facility] Physician GroupComment on above:Result Comment: Protein electrophoresis scan will follow via computer, mail, or epic cupid analyst delivery.Performed By: #### PTH, CLAUDY, RENAL, FE and TIBC, CBCNO, QEHZ06GR, MG, RLYB78FOX, URIC #### [place] [address] [place] #### KAPPA, SHORTY SERUM, SPE W INTERPRET #### [facility] ,Protein Creat Ratio Ur Randomon 94-47-2953Xpoerguags, Urine (Random)19.00 mg/dL NormalThe [facility] Physician GroupComment on above:Result Comment: No reference range establishedPerformed By: #### PTH, CLAUDY, RENAL, FE and TIBC, CBCNO, PFJV32HV, MG, ZTJD47SFQ, URIC #### [address] #### KAPPA, SHORTY SERUM, SPE W INTERPRET #### [facility] ,Protein (U) [Mass/Vol]5 mg/dLNormal0-9The [facility] Physician GroupComment on above:Performed By: #### PTH, CLAUDY, RENAL, FE and TIBC, CBCNO, [id number], MG, WGUC20RFT, URIC #### [address] #### KAPPA, SHORTY SERUM, SPE W INTERPRET #### [facility] ,Urine Protein/Creatinine Zrjue373 mg/g{Cre}High0-200The [facility] Physician GroupComment on above:Result Comment: PERFORMED BY: [place] [address] PATHOLOGIST DETENTION OFFICER CARON MUNOZ M.D.Performed By: #### PTH, CLAUDY, RENAL, FE and TIBC, CBCNO, BRTY10GU, MG, BPLE98EDH, URIC #### [address] #### KAPPA, SHORTY SERUM, SPE W INTERPRET #### [facility] ,Protein Test strip (U) [Mass/Vol]Ordered By: Morgan Womack on 94-76-0383Yqcmemx (U) [Mass/Vol]Protein [Mass/volume] in Urine by Test stripNegativeBrown Memorial HospitalProtein [Mass/volume] in UrineOrdered By: Morgan Womack on 18-94-9744Xpavdwf (U) [Mass/Vol]Protein [Mass/volume] in Urine0-9Brown Memorial HospitalRBC Auto (Bld) [#/Vol]Ordered By: Morgan Womack on 45-18-3670FGZ (Bld) [#/Vol]Erythrocytes [#/volume] in Blood by Automated count 3.60-5.00Brown Memorial HospitalRenal Function Panelon 04-10-2024 Albumin [Mass/Vol]4.1 g/dLNormal3.5-5.7The [facility] Physician GroupComment on above:Performed By: #### PTH, CLAUDY, RENAL, FE and TIBC, CBCNO, VCKA73WV, MG, RWQN86SBV, URIC #### [facility] [address] [place] [address] [place] #### KAPPA, SHORTY SERUM, SPE W INTERPRET #### [facility] ,Anion gap [Moles/Vol]10.1 mmol/LNormal6.0-15.0The [facility] Comment on above:Performed By: #### PTH, CLAUDY, RENAL, FE and TIBC, CBCNO, VRZR06BO, MG, LBHA17QAM, URIC #### [facility] [address] [place] [address] [place] #### KAPPA, SHORTY SERUM, SPE W INTERPRET #### [facility] ,Calcium [Mass/Vol]9.6 mg/dLNormal8.6-10.3The [facility] Physician GroupComment on above:Performed By: #### PTH, CLAUDY, RENAL, FE and TIBC, CBCNO, NTHG07GQ, MG, APTG71HKZ, URIC #### [place] [address] [place] #### KAPPA, SHORTY SERUM, SPE W INTERPRET #### [facility] ,Chloride [Moles/Vol]104 mmol/YQyhcre96-138Lsj [facility] Physician GroupComment on above:Performed By: #### PTH, CLAUDY, RENAL, FE and TIBC, CBCNO, [id number], MG, ENMG47RNO, URIC #### [place] [address] [place] #### KAPPA, SHORTY SERUM, SPE W INTERPRET #### [facility] ,CO2 [Moles/Vol]30.6 mmol/HIltskx57.0-31.0The [facility] Physician GroupComment on above:Performed By: #### PTH, CLAUDY, RENAL, FE and TIBC, CBCNO, BSLN66BS, MG, UQGX86ZGH, URIC #### [place] [address] [place] #### KAPPA, SHORTY SERUM, SPE W INTERPRET #### [facility] ,Creatinine [Mass/Vol]1.50 mg/dLHigh0.60-1.20The [facility] Comment on above:Performed By: #### PTH, CLAUDY, RENAL, FE and TIBC, CBCNO, JRYZ51CO, MG, JYXO90XQX, URIC #### [address] #### KAPPA, SHORTY SERUM, SPE W INTERPRET #### [facility] ,Estimated GFR36.116 mL/MinNormalThe [facility] Physician GroupComment on above: Performed By: #### PTH, CLAUDY, RENAL, FE and TIBC, CBCNO, IGGT06LP, MG, WIGQ70STL, URIC #### [address] #### KAPPA, SHORTY SERUM, SPE W INTERPRET #### [facility] ,Glucose [Mass/Vol]99 mg/fFDicbzf46-456Mdf [facility] Physician GroupComment on above:Result Comment: Random Glucose Reference Range is dependent on time and content of last meal. Glucose of more than 200 mg/dL in a nonstressed, ambulatory subject supports the diagnosis of Diabetes Mellitus. ADA recommended reference rangePerformed By: #### PTH, CLAUDY, RENAL, FE and TIBC, CBCNO, [id number], MG, YKIV92JDF, URIC #### [place] [address] [place] #### KAPPA, SHORTY SERUM, SPE W INTERPRET #### [facility] ,Phosphate [Mass/Vol]4.3 mg/dLNormal2.5-4.5The [facility] Physician GroupComment on above:Performed By: #### PTH, CLAUDY, RENAL, FE and TIBC, CBCNO, LGRG05HF, MG, GTPJ95NDF, URIC #### [address] #### KAPPA, SHORTY SERUM, SPE W INTERPRET #### [facility] ,Potassium [Moles/Vol]4.7 mmol/LNormal3.5-5.1The [facility] Comment on above:Performed By: #### PTH, CLAUDY, RENAL, FE and TIBC, CBCNO, [id number], MG, UYEE49VAV, URIC #### [address] #### KAPPA, SHORTY SERUM, SPE W INTERPRET #### [facility] ,Sodium [Moles/Vol]140 mmol/QCpxxfr531-362Imz [facility] Physician GroupComment on above:Performed By: #### PTH, CLAUDY, RENAL, FE and TIBC, CBCNO, ULVJ81IG, MG, COLB09TSA, URIC #### [address] #### KAPPA, SHORTY SERUM, SPE W INTERPRET #### [facility] ,Urea nitrogen [Mass/Vol]22 mg/dLNormal7-25The [facility] Physician GroupComment on above:Performed By: #### PTH, CLAUDY, RENAL, FE and TIBC, CBCNO, [id number], MG, TLXF97WZL, URIC #### [place] [address] [place] #### KAPPA, SHORTY SERUM, SPE W INTERPRET #### [facility] ,Serum free kappa light chain measurementOrdered By: Morgan Womack on 04-10-2024 Immunoglobulin light chains.kappa.free (S) [Mass/Vol]Immunoglobulin light chains.kappa.free [Mass/volume] in SerumHigh3.3-19.4FUniversity Hospitals Portage Medical Centererum globulin measurement (mass/volume)Ordered By: Morgan Womack on 72-23-5651Ualgvlbu (S) [Mass/Vol]Serum globulin measurement (mass/volume)2.2-3.9 [facility] Companyerum immunoglobulin free kappa light chains/immunoglobulin free lambda light chainsOrdered By: Morgan Womack on 55-54-3458Iibvrbmsboldqz light chains.kappa.free/Immunoglobulin light chains.lambda.free (S) [Mass ratio]Immunoglobulin light chains.kappa.free/Immunoglobulin light chains.lambda.free [Mass0.26-1.65 [facility] HospitalComment on above:Performed at: [facility] [address] [id number] Director: Jerrell Bautista PhD, Phone: [phone] or plasma albumin measurement (mass/volume)Ordered By: Morgan Womack on 44-31-1986Zjklsob [Mass/Vol]Albumin [Mass/volume] in Serum or Plasma2.9-4.4FUniversity Hospitals Portage Medical Centererum or plasma albumin/globulin mass ratioOrdered By: Morgan Shanta on 86-36-9499Ouxfowc/Globulin [Mass ratio] Serum or plasma albumin/globulin mass ratio0.7-1.7FUniversity Hospitals Portage Medical Centererum or plasma alpha 1 globulin measurement by electrophoresis (mass/volume)Ordered By: Morgan Womack on 55-01-1627Rzfww 1 globulin Elph [Mass/Vol]Serum or plasma alpha 1 globulin measurement by electrophoresis (mass/volume)0.0-0.4FUniversity Hospitals Portage Medical Centererum or plasma alpha 2 globulin measurement by electrophoresis (mass/volume)Ordered By: Morgan Womack on 82-92-9686Jyczc 2 globulin Elph [Mass/Vol]Serum or plasma alpha 2 globulin measurement by electrophoresis (mass/volume)0.4-1.0[facility] Companyerum or plasma anion gap determinationOrdered By: Morgan Womack on 49-10-3414Ihmct gap [Moles/Vol]Serum or plasma anion gap determination6.0-15.0 [facility] Companyerum or plasma beta globulin measurement by electrophoresis (mass/volume)Ordered By: Morgan Womack on 20-73-9383Qyjt globulin Elph [Mass/Vol]Serum or plasma beta globulin measurement by electrophoresis (mass/volume)0.7-1.3FUniversity Hospitals Portage Medical Centererum or plasma gamma globulin measurement by electrophoresis (mass/volume)Ordered By: Morgan Womack on 52-45-7631Tcxuq globulin Elph [Mass/Vol]Serum or plasma gamma globulin measurement by electrophoresis (mass/volume)0.4-1.8[facility] Hospital Companyerum or plasma immunoglobulin free lambda light chains measurement (mass/volume)Ordered By: Morgan Womack on 51-53-1028Hskegpinmtofly light chains.lambda.free [Mass/Vol]Immunoglobulin light chains.lambda.free [Mass/volume] in Serum or Plasma5.7-26.3FUniversity Hospitals Portage Medical Centererum or plasma iron binding capacity measurement (mass/volume)Ordered By: Morgan Womack 36-00-1775Ixls binding capacity [Mass/Vol]Iron binding capacity [Mass/volume] in Serum or Wlygap785-463KhijwrgetRegency Hospital Companyerum or plasma iron saturation measurement (mass fraction)Ordered By: Morgan Womack 95-24-2206Dhgn saturation [Mass fraction]Iron saturation [Mass Fraction] in Serum or SbbewaZzw64-30NhindtuiqRegency Hospital Companyerum total protein measurementOrdered By: Morgan Womack 72-67-4697Ahubedv [Mass/Vol]Protein [Mass/volume] in Serum or Plasma6.0-8.5FUniversity Hospitals Portage Medical Centerodium [Moles/volume] in Serum or PlasmaOrdered By: Morgan Womack 75-87-8097Agihqj [Moles/Vol]Sodium [Moles/volume] in Serum or Ygitfw980-997MprvoxrcqRegency Hospital Companypecific gravity Test strip (U) [Rel density]Ordered By: Morgan Womack 03-94-8788Xcdmvepm gravity (U) [Rel density]Specific gravity of Urine by Test strip1.001-1.030Brown Memorial HospitalTransferrin [Mass/volume] in Serum or PlasmaOrdered By: Morgan Womack 91-09-8729Fzldejoumwx [Mass/Vol]Transferrin [Mass/volume] in Serum or Bzmtem828-650HzhadutscBrown Memorial HospitalUS renal BIon 84-25-1204YM renal [facility] [place] [address] [place] [address] Ultrasound Report Signed Patient: Eleanor Mcclain MR#: [id number] : 1950 Acct:[id number] Age/Sex: 73 / F ADM Date: 04/10/24 Loc: Room: Type: [facility] Attending Dr: Morgan Womack MD Ordering [...] findings. Impression dictated by: Shant Pastrana Jr., D.OGina04/10/2024 3:04 PM Dictation Location: [place] [address] Tech: [facility] Transcribed By: CATA 04/10/24 1504 Dictated By: Shant Pastrana Jr, DO 04/10/24 1503 Signed By: 04/10/24 1504NoScionHealth Physician GroupUrate [Mass/volume] in Serum or PlasmaOrdered By: Morgan Womack on 68-55-4576Djslv [Mass/Vol]Urate [Mass/volume] in Serum or Plasma2.3-6.6FKettering Health Washington TownshipUrea nitrogen [Mass/volume] in Serum or PlasmaOrdered By: Morgan Womack on 43-07-6190Ukan nitrogen [Mass/Vol]Urea nitrogen [Mass/volume] in Serum or Plasma7-25Brown Memorial HospitalUric Acidon 94-46-2089Ambtn [Mass/Vol]4.8 mg/dLNormal 2.3-6.6The [facility] Physician GroupComment on above:Performed By: #### PTH, CLAUDY, RENAL, FE and TIBC, CBCNO, NNXU97NM, MG, PLZT61KDM, URIC #### [place] [address] [place] #### KAPPA, SHORTY SERUM, SPE W INTERPRET #### [facility] ,Urine Cultureon 25-21-9881Twjnwfux identified Cx Nom (U)ORGANISM: Escherichia coli (MDRO) (O:ESCCOLMDRO) [place] Count >100,000 Aerobic DEANNA Charge (NMIC56) SUSCEPTIBILITY ORGANISM: O:ESCCOLMDRO ANTIBIOTIC INTERPRETATION DEANNA Amikacin S <16 Amoxacillin/K Clavulanate S <8 Ampicillin R >16 Ampicillin/Sulbactam I 1616/8 Aztreonam S <4 Cefazolin S 4 Cefepime S <2 Ceftazidime S <1 Ceftazidime/Avibactam S <4 Ceftolozane/Tazobactam S <2 Ceftriaxone S <1 Cefuroxime S <4 Ciprofloxacin S <0.25 Ertapenem S <0.5 Gentamicin R >8 Levofloxacin S <0.5 Meropenem S <1 Meropenem/Vaborbactam S <2 Nitrofurantoin S <32 Piperacillin/Tazobactam S <8 Tetracycline R >8 Tigecycline S <2 Tobramycin S 4 Trimethoprim/Sulfamethoxazole R >2 S = SUSCEPTIBLE I = [...] RESISTANT TO ALL B-LACTAM DRUGS. PERFORMED BY: [facility] [address] [place] [address] PATHOLOGIST DETENTION OFFICER CARON MUNOZ M.D.NormalRiver Point Behavioral Health Physician GroupComment on above: Performed By: #### PTH, CLAUDY, RENAL, FE and TIBC, CBCNO, FUXY60VJ, MG, HGRE79HWJ, URIC #### [address] #### KAPPA, SHORTY SERUM, SPE W INTERPRET #### [facility] ,Urine protein/creatinine ratioOrdered By: Morgan Womack on 04-10-2024 Protein/Creatinine (U) [Ratio]Urine protein/creatinine ratioHigh0-200Brown Memorial HospitalUrobilinogen Test strip (U) [Mass/Vol]Ordered By: Morgan Womack on 00-70-2847Jqjxmgajxgbf (U) [Mass/Vol]Urobilinogen [Mass/volume] in Urine by Test stripNormProMedica Memorial HospitalVit. B12/Folate Profileon 75-03-7714Uzxghzdvm (Vitamin B12) [Mass/Vol]186 pg/jNOyeowe929-146Nuq [facility] Physician GroupComment on above:Performed By: #### PTH, CLAUDY, RENAL, FE and TIBC, CBCNO, MJFS04BO, MG, CTYB52JRM, URIC #### [address] #### KAPPA, SHORTY SERUM, SPE W INTERPRET #### [facility] ,Nkmgao93.5 ng/mLNormal>5.9The [facility] Physician [facility] Promise Of VicksburgComment on above:Result Comment: Folate reference range: >5.9 ng/ml The WHO technical consultation on folate and vitamin b12 deficiencies has determined that folate concentrations less than 4 ng/ml are considered deficient.Performed By: #### PTH, CLAUDY, RENAL, FE and TIBC, CBCNO, RPUV50VO, MG, WXZG85EEM, URIC #### [place] [address] [place] #### KAPPA, SHORTY SERUM, SPE W INTERPRET #### [facility] ,Vitamin B12 ser/plasOrdered By: Morgan Womack on 47-62-8328Plalbjhpl (Vitamin B12) [Mass/Vol]Vitamin B12 ser/gkyn761-779PuuplyofrBrown Memorial Hospital Vitamin D 25 Hydroxy Totalon 15-92-0407Ynkgnvf D 25 Hydroxy Total97.6 ng/mL Onkjtg02-215Feo [facility] Physician GroupComment on above:Result Comment: VITAMIN D STATUS 25(OH)VITAMIN D RANGE (ng/mL) Deficient <20 Insufficient 20 to <30 Sufficient 30 to 100 Reference: Robert Gould, Chastity RODARTE, et al. Evaluation,treatment, and prevention of vitamin D deficiency; an Endocrine Society clinical practice guideline. JCEM. 2010; 96(7):1911-. PERFORMED BY: [place] [address] PATHOLOGIST DETENTION OFFICER CARON MUNOZ M.D.Performed By: #### PTH, CLAUDY, RENAL, FE and TIBC, CBCNO, YNDT61EM, MG, HRUW94MCH, URIC #### [facility] [address] [place] [address] #### KAPPA, SHORTY SERUM, SPE W INTERPRET #### [facility] ,Vitamin D+Metabolites [Mass/volume] in Serum or PlasmaOrdered By: Morgan Womack on 73-43-3231Huvcrzn D+Metabolites [Mass/Vol]Vitamin D+Metabolites [Mass/volume] in Serum or Iubxds27-760ZohgyhbupBrown Memorial HospitalComment on above: VITAMIN D STATUS 25(OH)VITAMIN D RANGE (ng/mL) Deficient <20 Insufficient 20 to <80Zpdxphpgqa86 to 100Reference: Robert Gould, Chastity RODARTE, et al. Evaluation,treatment, and prevention of vitamin D deficiency; an Endocrine Society clinical practice guideline. JCEM. 2010; 96(7):1911-30.pH Test strip (U)Ordered By: Morgan Womack on 98-37-7129pS (U)pH of Urine by Test strip5.0-9.0 Brown Memorial HospitalECG 12-LEADon 64-34-9943Gid[address] [place] [address] Electrocardiograph Report Signed Patient: ELEANOR MCCLAIN MR#: [id number] : 1950 Acct:[id number] Age/Sex: 72 / F ADM Date: 11/02/23 Loc: LAB Attending Dr: GeovannyStaff Physician Sheriff Ordering Physician: Beth Lancaster M.D. 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 Signed By: 11/03/23 0653 11/03/23 06 DD/ 1103 TD/TT: Pest Control Chemical Technician:JUDYHRadiology, Radiologist, - 11/03/[address] [address] Electrocardiograph Report Signed Patient: ELEANOR MCCLAIN MR#: [id number] : 1950 Acct:[id number] Age/Sex: 72 / F ADM Date: 11/02/23 Loc: LAB Attending Dr: Beth Lancaster M.D. Ordering Physician: Beth Lancaster M.D. 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 Signed By: 11/03/23 0653 11/03/23 0653 DD/ 110 TD/TT: Pest Control Chemical Technician: DYLAN Carbajal 12-LEADOrdered By: Radiologist Radiology on 27-07-7077CUUE Meliuz Work Phone: ECG 12-LEADon 44-42-0633Vruvntymw Study observation (narrative)DYLAN BartlettNuclear stress test with myocardial perfusionon 61-86-8730Ffg Stress EF65 %BON Blockade MedicalStress Target [id number] Blockade MedicalImage quality is good. Stress Test: A pharmacological [...] The stress end diastolic cavity size is normal.BSMH CV RPACS STRESSBATH COMMUNITY HOSPITALNuclear stress test with myocardial perfusionon 09-27-2023 Radiology Study observation (narrative)[facility] HOSPITALGlucose, Whole Bloodon 02-11-5004Efajbic [Mass/Vol]104 mg/iHTckn74-673VjflpUk Healthcare CULTURE URINEon 35-46-2950SOJCWJT URINEIsolate 1 Proteus mirabilis >100,000 cfu/mL of ORGANISM 1 Proteus mirabilis ANTIBIOTIC M.I.C RX STATUS Ampicillin <=2 S F Ampicillin/Sulbactam <=2 S F Piperacillin/Tazobactam <=4 S F Cefazolin <=4 S F Ceftazidime <=1 S F Ceftriaxone <=1 S F Ertapenem <=0.5 S F Imipenem 2 S F Amikacin <=2 S F Gentamicin <=1 S F Tobramycin <=1 S F Ciprofloxacin <=0.25 S F Levofloxacin <=0.12 S F Nitrofurantoin 128 R F Trimethoprim/Sulfamethoxazole <=20 S FNormalThe [facility] CenterComment on above:Performed By: #### URCX ####[facility] [address] [place] [address]Dr. Davidson Barroso AUTO DIFFon 91-44-5088CCHD #0.1 103/ulNormal0.0-0.1The [facility] CenterComment on above:Performed By: #### POCGLUC #### [facility] [address] [place] [address] Dr. Davidson SaundersBasophils/100 WBC (Bld)0.5 %Normal0.2-2.0[facility] Comment on above:Performed By: #### POCGLUC #### [facility] [address] [place] [address] Dr. Davidson Root #0.2 103/ulNormal0.0-0.7The [facility] CenterComment on above: Performed By: #### POCGLUC #### [facility] [address] [place] [address] Dr. Davidson Guillaumeosinophils/100 WBC (Bld)1.6 %Normal0.9-7.0[facility] Comment on above:Performed By: #### POCGLUC #### [facility] [address] [place] [address] Dr. Davidson Guillaumerythrocyte distribution width (RBC) [Ratio]12.7 %Ryagha33.0-15.0 [facility] Rut[facility] HospitalComment on above:Performed By: #### POCGLUC #### [facility] [address] [place] [address] Dr. Davidson SaundersHematocrit (Bld) [Volume fraction]38.7 %Gouaor06.0-48.0[facility] Rut[facility] HospitalComment on above:Performed By: #### POCGLUC #### [facility] [address] [place] [address] [address] Davidson SaundersHemoglobin (Bld) [Mass/Vol]13.2 g/iSLzpazl38.0-16.0The [facility] CenterComment on above:Performed By: #### POCGLUC #### [facility] [address] [place] [address] Dr. Davidson Leon #0.17 10e3/ulCritically high0.00-0.03The [facility] Comment on above:Performed By: #### POCGLUC #### [facility] [address] [place] [address] Dr. Davidson Leon %1.1 %Critically high0.0-0.5The [facility] CenterComment on above:Performed By: #### POCGLUC #### [facility] [address] [place] [address] Dr. Davidson Alan #3.5 103/ulNormal1.2-3.8The [facility] CenterComment on above:Performed By: #### POCGLUC #### [facility] [address] [place] [address] Dr. Davidson Payanhocytes/100 WBC (Bld)23.7 %Alpkmu28.5-60.0The [facility] CenterComment on above:Performed By: #### POCGLUC #### [facility] [address] [place] [address] Dr. Davidson ForresterUAL DIFF REQNONormalThe [facility] CenterComment on above: Performed By: #### POCGLUC #### [facility] [address] [place] [address] Dr. Davidson Hernandez (RBC) [Entitic mass]28.0 tiWfmjli19.7-34.0The [facility] CenterComment on above:Performed By: #### POCGLUC #### [facility] [address] [place] [address] Dr. Davidson Hernandez (RBC) [Mass/Vol]34.1 g/pRDododg36.9-35.2The [facility] CenterComment on above:Performed By: #### POCGLUC #### [facility] [address] [place] [address] [address] Davidson HernandezV (RBC) [Entitic vol]82.2 dNMyjlfw10.0-99.0The [facility] CenterComment on above:Performed By: #### POCGLUC #### [facility] [address] [place] [address] [address] Davidson Martin #1.1 103/ulCritically high0.3-0.8ThMartin Memorial Hospital Comment on above:Performed By: #### POCGLUC #### [facility] [address] [place] [address] [address] Davidson Cooperocytes/100 WBC (Bld)7.1 %Normal1.7-12.0[facility] Comment on above:Performed By: #### POCGLUC #### [facility] [address] [place] [address] Dr. Davidson Pedroza #9.8 103/ulCritically high1.4-6.5ThMartin Memorial Hospital Comment on above:Performed By: #### POCGLUC #### [facility] [address] [place] [address] Dr. Davidson Grahamutrophils/100 WBC (Bld)66.0 %Eitjaz82.0-75.0The [facility] CenterComment on above:Performed By: #### POCGLUC #### [facility] [address] [place] [address] Dr. Davidson Salguerolet mean volume (Bld) [Entitic vol]9.0 fLCritically low 9.5-13.5ThMartin Memorial HospitalComment on above:Performed By: #### POCGLUC #### [facility] [address] [place] [address] Dr. Davidson SaundersPLT201 103/kjPhxewr756-991Txq [facility] CenterComment on above: Performed By: #### POCGLUC #### [facility] [address] [place] [address] Dr. Davidson SaundersRBC4.71 106/ulNormal4.20-5.40The [facility] CenterComment on above:Performed By: #### POCGLUC #### [facility] [address] [place], [place] [address] Dr. Davidson SaundersWBC14.9 103/ulCritically high4.0-11.0The [facility] CenterComuniversity of michigan health on above:Performed By: #### POCGLUC #### [facility] [address] [place], [place] [address] Dr. Davidson Valdivia URINE PROFILEon 95-28-5291Cidpbozla Ql (U)NegativeNormal NEGATIVEMary Rutan HospitalComment on above:Performed By: #### ERUJohn UMICRO ####[facility] [address] [place], [place]Dr. Davidson ChangClarity (U)CLOUDYAbnormalCLEARThe [facility] CenterComment on above: Performed By: #### ERUJohn UMICRO ####[facility] [address] [place] [address]Dr. Davidson SaundersColor (U)DK. YELLOWNormalYELLOWMary Rutan HospitalComment on above:Performed By: #### ERUJohn UMICRO ####[facility] [address] [place] [address]Dr. Davidson Abdullahi A micrscopic examination will be performed if indicated.NormalThe [facility] CenterComment on above:Performed By: #### ERUJohn UMICRO ####[facility] [address] [place] [id number]. Davidson ChangGlucose Ql (U) NegativeNormalNEGATIVEMary Rutan HospitalComment on above:Performed By: #### ERUJohn UMICRO ####[facility] [address] [place] [address]DrGina Cedeño ChangHemoglobin Ql (U)NegativeNormalNEGATIVEOhiohealth Mansfield Hospital on above:Performed By: #### ERUR, UMICRO ####[facility] [address] [place] [address]Dr. Davidson ChangKetones Ql (U) NegativeNormalNEGATIVEThe Gustavo HospitalComment on above:Performed By: #### JIA UMICRO ####[facility] [address] [place] [address]Dr. Yilan ChangLEUKOCYTESLARGEAbnormalNEGATIVEThe [facility] HospitalComment on above:Performed By: #### JIA UMICRO ####[facility] [address] [place] [id number]. Meilan ChangNitrite Ql (U)PositiveAbnormal NEGATIVEThe [facility] HospitalComment on above:Performed By: #### JIA UMICRO ####[facility] [address] [place] [address]Dr. Yilan ChangpH (U)[pH]Abnormal5-9The [facility] CenterComment on above:Performed By: #### JIA UMICRO ####[facility] [address] [place] [address]Dr. Yilan ChangProtein (U) [Mass/Vol]100 mg/dLAbnormal NEGATIVE/ TRACEThe [facility] HospitalComment on above:Performed By: #### JIA UMICRO ####[facility] [address] [place] [address]Dr. Davidson ChangSPEC GRAVITY1.908Lhewnl8.005-<=1.025The [facility] Comment on above:Performed By: #### JIA UMICRO ####[facility] [address] [place] [address]Dr. Yilan ChangUR MICRO IND INDICATEDNormalThe [facility] Medical CenterComment on above:Performed By: #### JIA UMICRO ####[facility] [address] [place] [address]Dr. Yilan ChangUrobilinogen Qn (U)1.0 {Balaji'U}/dLNormal0.2 - 1.0The [facility] CenterComment on above:Performed By: #### JIA UMICRO ####[facility] [address] [place] [address]Dr. Yilan ChangPROF CHEM 8 (BAS METB)on 40-76-1434Yerid gap [Moles/Vol]13.6 mmol/LNormalThe [facility] CenterComment on above:Performed By: #### MAIN, HSTROPN ####[facility] [address] [place] [address]Dr. Yilan ChangCalcium [Mass/Vol]9.6 mg/dLNormal8.5-10.1The [facility] HospitalComment on above:Performed By: #### MAIN, HSTROPN ####[facility] [address]clks[address] [place] [address]Dr. Yilan ChangChloride [Moles/Vol]100 mmol/LNormal 98-107The [facility] CenterComment on above:Performed By: #### MAIN, HSTROPN ####[facility] [address] [place], [place] [address]Dr. Yilan ChangCO2 [Moles/Vol]28.1 mmol/LOizova98.0-32.0The [facility] HospitalComment on above:Performed By: #### MAIN, HSTROPN ####[facility] [address] [place], [place] [address]Dr. Yilan ChangCreatinine [Mass/Vol]1.94 mg/dLCritically high0.55-1.02The [facility] CenterComment on above:Performed By: #### MAIN, HSTROPN ####[facility] [address]kmcux[address] [place], [place]Dr. Yilan ChangEGFR-AF LUSMIPYT07 mL/min/1.73m2 Critically low>=60The [facility] Medical CenterComment on above:Performed By: #### BMP, HSTROPN ####[facility] [address] [place] [address]q. Yilan ChangEGFR-NON AF VSVVETEB06 mL/min/1.60y6Nxkzywgkin low>=60The [facility] CenterComment on above:Performed By: #### BMP, HSTROPN ####[facility] [address] [place], [place] [address]Dr. Yilan Saunders Glucose [Mass/Vol]165 mg/dLCritically evvq69-204Wqa [facility] CenterComment on above:Performed By: #### MAIN, HSTROPN ####[facility] [address] [place] [address]Dr. Davidson ChangPotassium [Moles/Vol]3.7 mmol/L Normal3.5-5.1The [facility] CenterComment on above:Performed By: #### MAIN, HSTROPN ####[facility] [address] [place] [address]Dr. Davidson ChangSodium [Moles/Vol]138 mmol/JVnctyk889-105Vmh [facility] CenterComuniversity of michigan health on above:Performed By: #### MAIN, HSTROPN ####[facility] [address]sacv[address] [place] [address]Dr. Davidson ChangUrea nitrogen [Mass/Vol]41.0 mg/dLCritically high7.0-18.0The [facility] CenterComuniversity of mich[facility] health on above:Performed By: #### MAIN, HSTROPN ####[facility] [address] [place] [address]Dr. Meilan ChangUrea nitrogen/Creatinine [Mass ratio]21.1 mg/mgNormalThe [facility] CenterComuniversity of mich[facility] health on above:Performed By: #### MAIN, HSTROPN ####[facility] [address] [place] [address]Dr. Davidsno ChipTROPONIN, HIGH SENSITIVITYon 69-28-7002NUSSCW68.9 pg/mL Normal4.0-51.3The [facility] CenterComuniversity of michigan health on above:Result Comment: CUT-OFF POINTS HAVE BEEN ESTABLISHED BASED ON THE FOURTH UNIVERSAL DEFINITIONS OF MY OCARDIAL INFARCTION. THE UPPER REFERENCE LIMIT (URL) OF TROPONIN, DEFINED THE 99TH PERCENTILE OF cTnI DISTRIBUTION IN A REFERENCE POPULATION, HAS BEEN CONFIRMED THE DECISION THRESHOLD FOR [place] DIAGNOSIS.Performed By: #### MAIN, HSTROPN ####[facility] [address] [place], [place] [address]Dr. Meilan ChangURINE MICROSCOPIC ONLYon 26-31-7815WPMMEJQUGOCLEPZEUeqdanxsMYRU SEENThe [facility] CenterComment on above:Performed By: #### JIA UMICRO ####[facility] [address]re[address] [place] [address]Dr. Davidson SaundersBacteria identified Cx Nom (U)INDICATEDNormalThe [facility] CenterComment on above: Performed By: #### JIA UMICRO ####[facility] [address] [place] [address]Dr. Davidson ChangCASTNONE SEENNormalNONE SEENMary Rutan HospitalComment on above:Performed By: #### JIA UMICRO ####[facility] [address] [place] [address]Dr. Davidson SaundersCrystals LM Nom (Urine sed)SEENAbnormalNONE SEENMary Rutan HospitalComuniversity of mich[facility] health on above:Performed By: #### JIA UMICRO ####[facility] [address] [place], [place] [address]Dr. Davidson ChangEpithelial cells LM Ql (Urine sed)FEW AbnormalNONE SEEN /RAREThe [facility] CenterComment on above:Performed By: #### JIA UMICRO ####[facility] [address] [place], [place] [address]Dr. Davidson ChangMUCOUSNONE SEENNormnjNONE SEENThe [facility] CenterComment on above:Performed By: #### JIA UMICRO ####[facility] [address] [place] [id number]. Davidson ChangRBCNONE SEENAbnormal0-2The [facility] CenterComment on above:Performed By: #### JIA UMICRO ####[facility] Pgreuvmaft[address] [place], [place] [address]Dr. Davidson SaundersWBC 10-20AbnormalNONE SEENMary Rutan HospitalComment on above:Performed By: #### JIA UMICRO ####[facility] Pbtdwkjbn[address] [place], [place] [id number]. Davidson SaundersXR CHEST 1 Von [id number] CHEST 1 VXR CHEST 1 V CLINICAL: Asthenia COMPARISON: 12/29/2021 [...] Electronically authenticated by: ABHI CANTU Date: 2022-07-25 11:13[facility] HospitalCOVID + FLU Quick Testingon [id number]-CoV-2 (COVID-19) RNA SAE+probe Ql (Unsp spec)NegativeNohca midwest division [employer] Other COVID + FLU Quick TestingNegativeNoAbattis Bio[employer] Other CULTURE URINEon [id number] URINEIsolate 1 Escherichia coli >100,000 cfu/mL of ORGANISM 1 Escherichia coli ANTIBIOTIC M.I.C RX STATUS Ampicillin 4 S F Ampicillin/Sulbactam <=2 S F Piperacillin/Tazobactam <=4 S F Cefazolin <=4 S F Ceftazidime <=1 S F Ceftriaxone <=1 S F Ertapenem <=0.5 S F Imipenem <=0.25 S F Amikacin <=2 S F Gentamicin <=1 S F Tobramycin <=1 S F Ciprofloxacin <=0.25 S F Levofloxacin <=0.12 S F Nitrofurantoin <=16 S F Trimethoprim/Sulfamethoxazole <=20 S FNormalThe [facility] CenterComment on above:Performed By: #### URCX ####[facility] [address] [place] [address]Dr. Davidson SaundersBAPTIST HEALTH LA GRANGE AUTO DIFFon [id number] #0.0 103/ulNormal0.0-0.1The [facility] CenterComment on above:Performed By: #### A1C #### [facility] [address] [place] [address] Dr. Davidson SaundersBasophils/100 WBC (Bld)0.3 %Normal0.2-2.0[facility] Comment on above:Performed By: #### A1C #### [facility] [address] [place] [address] Dr. Davidson Root #0.0 103/ulNormal0.0-0.7The [facility] CenterComment on above: Performed By: #### A1C #### [facility] [address] [place] [address] Dr. Davidson Guillaumeosinophils/100 WBC (Bld)0.0 %Critically low0.9-7.0The [facility] CenterComment on above:Performed By: #### A1C #### [facility] [address] [place] [address] Dr. Davidson Guillaumerythrocyte distribution width (RBC) [Ratio]13.2 %Ujsfvg27.0-15.0 [facility] Rutan HospitalComment on above:Performed By: #### A1C #### [facility] [address] [place] [address] Dr. Davidson SaundersHematocrit (Bld) [Volume fraction]30.5 %Critically low36.0-48.0 [facility] Rutan HospitalComment on above:Performed By: #### A1C #### [facility] [address] [place] [address] Dr. Davidson SaundersHemoglobin (Bld) [Mass/Vol]10.0 g/dLCritically low12.0-16.0Mary Rutan HospitalComment on above:Performed By: #### A1C #### [facility] [address] [place] [address] Dr. Davidson Leon #0.09 10e3/ulCritically high0.00-0.03The [facility] Comment on above:Performed By: #### A1C #### [facility] [address] [address] [address] Davidson Leon %0.9 %Critically high0.0-0.5The [facility] CenterComment on above:Performed By: #### A1C #### [facility] [address] [place] [address] Dr. Davidson Alan #1.5 103/ulNormal1.2-3.8The [facility] CenterComment on above:Performed By: #### A1C #### [facility] [address] [place] [address] Dr. Davidson Payanhocytes/100 WBC (Bld)14.2 %Critically low20.5-60.0The [facility] CenterComment on above:Performed By: #### A1C #### [facility] [address] [place] [address] Dr. Davidson ForresterUAL DIFF REQNONormalThe [facility] CenterComment on above: Performed By: #### A1C #### [facility] [address] [place] [address] Dr. Davidson Hernandez (RBC) [Entitic mass]28.1 hlPgwxwm93.7-34.0The [facility] CenterComment on above:Performed By: #### A1C #### [facility] [address] [place] [address] Dr. Davidson Hernandez (RBC) [Mass/Vol]32.8 g/lGLdpttf11.9-35.2The [facility] CenterComment on above:Performed By: #### A1C #### [facility] [address] [place] [address] Dr. Davidson Hernandez (RBC) [Entitic vol]85.7 yXKpxvxq02.0-99.0The [facility] CenterComment on above:Performed By: #### A1C #### [facility] [address] [place] [address] Dr. Davidson Martin #0.8 103/ulNormal0.3-0.8The [facility] CenterComment on above:Performed By: #### A1C #### [facility] [address] [address] [address] Davidson Cooperocytes/100 WBC (Bld)8.1 %Normal1.7-12.0The [facility] Comment on above:Performed By: #### A1C #### [facility] [address] [address] [address] Davidson Pedroza #7.8 103/ulCritically high1.4-6.5The [facility] Comment on above:Performed By: #### A1C #### [facility] [address] [place] [address] Dr. Davidson Grahamutrophils/100 WBC (Bld)76.5 %Critically high43.0-75.0The [facility] CenterComment on above:Performed By: #### A1C #### [facility] [address] [place] [address] Dr. Davidson SaundersPlatelet mean volume (Bld) [Entitic vol]9.1 fLCritically low 9.5-13.5The [facility] CenterComment on above:Performed By: #### A1C #### [facility] [address] [place] [address] Dr. Davidson SaundersPLT255 103/gfDdzjum619-972Yrm [facility] CenterComment on above: Performed By: #### A1C #### [facility] [address] [place] [address] Dr. Davidson SaundersRBC3.56 106/ulCritically low4.20-5.40The [facility] CenterComment on above:Performed By: #### A1C #### [facility] [address] [place] [address] Dr. Davidson SaundersWBC10.2 103/ulNormal4.0-11.0The [facility] CenterComment on above:Performed By: #### A1C #### [facility] [address] [place] [address] Dr. Davidson Ferguson 14(COMP METB)on 67-51-3823Iixlmlc [Mass/Vol]3.3 g/dL Critically low3.4-5.0The [facility] CenterComment on above:Performed By: #### CMP ####[facility] [address] [place], [place] [address]Cq. Yilan ChangAlbumin/Globulin [Mass ratio]0.8 {ratio}NormalThe [facility] Comment on above:Performed By: #### CMP ####[facility] [address]nlp[address] [place], [place] [address]Az.Yilan ChangALP [Catalytic activity/Vol]92 U/SEkdasl77-170Iwr [facility] Medical Centerment on above:Performed By: #### CMP ####[facility] [address] [place] [id number]. Yilan ChangALT [Catalytic activity/Vol]17 U/WLiwpbw07-39Ome [facility] Comment on above:Performed By: #### CMP ####[facility] [address]seyezb[address] [place] [address]Dr.Yilan ChangAnion gap [Moles/Vol]12.8 mmol/LNormalThe [facility] CenterComment on above:Performed By: #### CMP ####[facility] [address] [place] [address]Dr. Yilan ChangAST [Catalytic activity/Vol]12 U/LCritically ovj62-85[facility] on above:Performed By: #### CMP ####[facility] Tyu[address]zarh[address] [place] [address]Dr.Yilan ChangBilirubin [Mass/Vol]0.2 mg/dLNormal0.2-1.0The [facility] CenterComment on above:Performed By: #### CMP ####[facility] [address] [place] [id number].Yilan ChangCalcium [Mass/Vol]9.2 mg/dLNormal8.5-10.1The [facility] CenterComuniversity of [facility] health on above:Performed By: #### CMP ####[facility] Wuwbcsnafz[address] [place], [place] [address]Dr.Yilan ChangChloride [Moles/Vol]105 mmol/MUbukqg31-983Fxo [facility] CenterComment on above:Performed By: #### CMP ####[facility] Cbobztdatg[address] [place] [address]Dr.Yilan ChangCO2 [Moles/Vol]24.7 mmol/CMtmbhx23.0-32.0The [facility] CenterComment on above:Performed By: #### CMP ####[facility] Wxiavoqdnp[address] [place] [address]Dr.Yilan ChangCreatinine [Mass/Vol]1.36 mg/dLCritically high0.55-1.02The [facility] CenterComment on above:Performed By: #### CMP ####[facility] Urxtjifllv[address] [place], [place] [address]Dr.Yilan ChangEGFR-AF NOPICFRI17 mL/min/1.73m2 Critically low>=60The [facility] CenterComment on above:Performed By: #### CMP ####[facility] Yqqbhsnwhx[address] [place], [place] [address]Dr. Yilan ChangEGFR-NON AF MAMXIBGP28 mL/min/1.36p9Mciiccozdh low>=60The [facility] CenterComment on above:Performed By: #### CMP ####[facility] Agkjbunooh[address] [place], [place] [address]Dr.Yilan ChangGlobulin (S) [Mass/Vol]4.3 g/dLNormalThe [facility] CenterComment on above:Performed By: #### CMP ####[facility] Rjxscjgttl[address] [place], [place] [address]Dr.Yilan ChangGlucose [Mass/Vol]106 mg/qAUdjmmj94-343Lew [facility] Comment on above:Performed By: #### CMP ####[facility] Urmmaqjgll[address] [place], [place] [address]Dr.Yilan ChangPotassium [Moles/Vol]4.5 mmol/LNormal3.5-5.1The [facility] CenterComment on above:Performed By: #### CMP ####[facility] Dgvexymvct[address] [place], [place] [address]Dr. Yilan ChangProtein [Mass/Vol]7.6 g/dLNormal6.4-8.2The [facility] CenterComment on above:Performed By: #### CMP ####[facility] Pqmfnuqriy[address] [place], [place] [address]Dr.Yilan ChangSodium [Moles/Vol]138 mmol/LNormal 136-145The [facility] CenterComment on above:Performed By: #### CMP ####[facility] Lpbyelxuar[address] [place], [place] [address]Dr.Meilan ChangUrea nitrogen [Mass/Vol]24.0 mg/dLCritically high7.0-18.0The [facility] CenterComment on above:Performed By: #### CMP ####[facility] [address]uflgwn[address] [place], [place] [address]Dr.Yilan ChangUrea nitrogen/Creatinine [Mass ratio] 17.6 mg/mgNormalThe [facility] CenterComuniversity of mich[facility] health on above:Performed By: #### CMP ####[facility] Oqxhbplejq[address] [place], [place] [address]Dr. Davidson ChangCARDIAC DIEGO 3-6on 18-42-3345CP [Catalytic activity/Vol]42 U/LNormal 26-192The [facility] CenterComment on above:Performed By: #### CMREP ####[facility] Wwlmnfvrds[address] [place], [place] [address]Dr. Davidson ChipCK.MB [Mass/Vol]1.07 ng/mLNormal<=3.60[facility] on above:Performed By: #### CMREP ####[facility] Immuhgnmbi[address] [place], [place] [address]Dr. Davidson SaundersZouzfRUNKKL06.0 pg/mLNormal4.0-51.3The [facility] CenterComuniversity of [facility] health on above:Result Comment: CUT-OFF POINTS HAVE BEEN ESTABLISHED BASED ON THE FOURTH UNIVERSAL DEFINITIONS OF MYOCARDIAL INFARCTION. THE UPPER REFERENCE LIMIT (URL) OF TROPONIN, DEFINED THE 99TH PERCENTILE OF cTnI DISTRIBUTION IN A REFERENCE POPULATION, HAS BEEN CONFIRMED THE DECISION THRESHOLD FOR [place] DIAGNOSIS.Performed By: #### CMREP ####[facility] Cyxvpxbeoz[address] [place], [place] [address]Dr. Davidson ChangCK [Catalytic activity/Vol]47 U/FQogzhg96-601Uly [facility] CenterComment on above:Performed By: #### CMREP #### [facility] [address] [address] [address] Davidson Le.MB [Mass/Vol]0.69 ng/mLNormal<=3.60The [facility] Comment on above:Performed By: #### CMREP #### [facility] [address] [address] [address] Davidson SaundersHSTROP12.8 pg/mLNormal4.0-51.3The [facility] CenterComment on above:Result Comment: CUT-OFF POINTS HAVE BEEN ESTABLISHED BASED ON THE FOURTH UNIVERSAL DEFINITIONS OF MYOCARDIAL INFARCTION. THE UPPER REFERENCE LIMIT (URL) OF TROPONIN, DEFINED THE 99TH PERCENTILE OF cTnI DISTRIBUTION IN A REFERENCE POPULATION, HAS BEEN CONFIRMED THE DECISION THRESHOLD FOR [place] DIAGNOSIS.Performed By: #### CMREP #### [facility] [address] [address] [address] Davidson JuddC AUTO DIFFon [id number] #0.1 103/ulNormal0.0-0.1The [facility] CenterComment on above:Performed By: #### CBC ####[facility] [address]fetlwgnt[address] [place] [address]DrRafita SaundersBasophils/100 WBC (Bld)0.5 %Normal0.2-2.0The [facility] CenterComment on above:Performed By: #### CBC ####[facility] Pcystgebbl[address] [place] [address]DrRafita ChangEO #0.1 103/ulNormal0.0-0.7The [facility] CenterComment on above:Performed By: #### CBC ####[facility] X[address]uftmdcn[address] [place] [address] ChangEosinophils/100 WBC (Bld)1.1 %Normal 0.9-7.0The [facility] CenterComment on above:Performed By: #### CBC ####[facility] Nrhrdsfitc[address] [place] [address]Dr.Yilan Saunders Erythrocyte distribution width (RBC) [Ratio]13.4 %Rjrxfy73.0-15.0The [facility] CenterComment on above:Performed By: #### CBC ####[facility] Yoiafliwfd[address] [place], [place] [address]Dr.Davidson ChangHematocrit (Bld) [Volume fraction]32.4 %Critically low36.0-48.0The [facility] HospitalComment on above:Performed By: #### CBC ####[facility] Dixatemmjq[address] [place], [place] [address]Dr.Davidson ChangHemoglobin (Bld) [Mass/Vol]10.5 g/dL Critically low12.0-16.0The [facility] CenterComment on above:Performed By: #### CBC ####[facility] Xefmfekptt[address] [place], [place] [address]Dr. Davidson ChangIG #0.07 10e3/ulCritically high0.00-0.03The [facility] CenterComment on above:Performed By: #### CBC ####[facility] Unntipvgfh[address] [place], [place] [address]Dr.Davidson ChangIG %0.6 %Critically high0.0-0.5The [facility] CenterComment on above:Performed By: #### CBC ####[facility] Minwchpwya[address] [place], [place] [address]Dr.Davidson SaundersMPH #1.7 103/ulNormal1.2-3.8The [facility] CenterComment on above:Performed By: #### CBC ####[facility] [address]zdnzw[address] [place], [place] [address]Dr. Davidson SaundersLymphocytes/100 WBC (Bld)14.5 %Critically low20.5-60.0The [facility] HospitalComment on above:Performed By: #### CBC ####[facility] Fhplhewjjp[address] [place], [place] [address]Dr.Davidson SaundersMANUAL DIFF REQ NONormalThe [facility] CenterComment on above:Performed By: #### CBC ####[facility] [address]xjttcvmaa[address] [place], [place] [address]Dr. Davidson SaundersHUDSON VALLEY [facility] (RBC) [Entitic mass]27.9 qxNwwwzk62.7-34.0The [facility] Comment on above:Performed By: #### CBC ####[facility] [address]cvtbrer[address] [place] [address]Dr.Davidson SaundersHC (RBC) [Mass/Vol]32.4 g/dL Ypplhu97.9-35.2The [facility] CenterComment on above:Performed By: #### CBC ####[facility] [address]udmgiwu[address] [place] [address]Dr. Davidson SaundersV (RBC) [Entitic vol]86.2 vUOraynu80.0-99.0The [facility] Comment on above:Performed By: #### CBC ####[facility] Touimtcsxb[address] [place], [place] [address]Dr.Davidson SaundersMONO #1.1 103/ulCritically high0.3-0.8The [facility] CenterComment on above:Performed By: #### CBC ####[facility] [address]ktvslcrwj[address] [place], [place] [address]Dr. Davidson SaundersMonocytes/100 WBC (Bld)9.8 %Normal1.7-12.0The [facility] Comment on above:Performed By: #### CBC ####[facility] Rfemshyfub[address] [place], [place] [address]Dr.Davidson SaundersNEUT #8.6 103/ulCritically high1.4-6.5The [facility] CenterComment on above:Performed By: #### CBC ####[facility] [address]obcylq[address] [place], [place] [address]Dr. Davidson SaundersNeutrophils/100 WBC (Bld)73.5 %Eelkng80.0-75.0The [facility] Comment on above:Performed By: #### CBC ####[facility] [address]yjewfp[address] [place], [place] [address]Dr.Davidson SaundersPlatelet mean volume (Bld) [Entitic vol]8.8 fLCritically low9.5-13.5The [facility] CenterComment on above: Performed By: #### CBC ####[facility] Fbgooduhrc[address] [place], [place] [address]Bb.Davidson WapdmEXK185 103/aoPpexwl112-522Hmi [facility] CenterComment on above:Performed By: #### CBC ####[facility] [address]feupakiv[address] [place], [place] [address]Ac.Davidson SaundersRBC3.76 106/ul Critically low4.20-5.40The [facility] CenterComment on above:Performed By: #### CBC ####[facility] Usxyqzpatb[address] [place], [place] [address]Qz. Davidson VvpijZUA94.6 103/ulCritically high4.0-11.0The [facility] CenterComment on above:Performed By: #### CBC ####[facility] Urqtcndkjs14[address] [place], [place] [address]Qc.Davidson ChangCT STROKE HEAD WOon 05-34-0607OM STROKE HEAD WONONCONTRAST CT SCAN OF THE HEAD CT STROKE [...] Electronically authenticated by: ANIYA SANTOYO Date: 2021-12-29 22:08NoMercy Health Kings Mills HospitalCovid-19 PCR (CVDTBH)on 18-08-5296KKGT-CoV-2 (COVID-19) RNA SAE+probe Ql (Unsp spec)DetectedCritically abnormalNOT DETECTEDThe [facility] CenterComment on above:Result Comment: This test is not yet approved or cleared by the [place] FDA. When there are no FDA-approved or cleared tests available, and other criteria are met, FDA can make tests available under an emergency access mechanism called an Emergency Use Authorization (EUA). The EUA for this test is supported by the [place] of Health and Human Service's declaration that circumstances exist to justify the emergency use of in vitro diagnostics for the detection and/or diagnosis of the virusthat causes COVID-19. This EUA will remain in effect for the duration of the COVID-19 declaration ju stifying emergency of IVDs, unless it is terminated or revoked by the FDA (after which the test mayno longer be used).Performed By: #### CVDTBH ####[facility] [address]ab[address] [place] [id number]. Yilan ChangER URINE PROFILEon 69-25-2753Itmrpvoco Ql (U)NegativeNormalNEGATIVEMary Rutan HospitalComment on above:Performed By: #### TAVO RO ####[facility] L[address]nmkhmer[address] [place], [place]Dr. Yilan ChangClarity (U) CLEARNormalCLEARMary Rutan HospitalComment on above:Performed By: #### TAVO RO ####[facility] Plfsmfncxo[address] [place], [place] [address]If. Yilan ChangColor (U)LT. YELLOWNormalYELLOWMary Rutan HospitalComment on above:Performed By: #### CHARO RORO ####[facility] Hpgnxzswxn[address] [place], [place]Dr. Yilan ChangERUAHDA micrscopic examination will be performed if indicated.NormalMary Rutan HospitalComment on above: Performed By: #### TAVO RO ####[facility] [address]wp[address] [place] [address]Dr. Yilan ChangGlucose Ql (U)NegativeNormalNEGATIVEThe [facility] CenterComment on above:Performed By: #### TAVO RO ####[facility] Z[address]ulntfneq[address] [place] [address]Dr. Yilan Saunders Hemoglobin Ql (U)TRACE-INTACTAbnormalNEGATIVEMary Rutan HospitalComment on above:Performed By: #### TAVO RO ####[facility] Kkvauzvmiu[address]67 [address] Yilan ChangKetones Ql (U)NegativeNormal NEGATIVEMary Rutan HospitalComment on above:Performed By: #### TAVO RO ####[facility] Ecgxtcfkib[address] Yilan ChangLEUKOCYTESSMALLAbnormalNEGATIVEMary Rutan HospitalComment on above: Performed By: #### TAVO RO ####[facility] [address]zyf[address] [place], [place] [address]r. Yilan ChangNitrite Ql (U)PositiveAbnormalNEGATIVE The [facility] CenterComment on above:Performed By: #### TAVO RO ####[facility] [address] [place] [address]Dr. Yilan ChangpH (U)6.0 [pH]Normal5-9Mary Rut[facility] HospitalComment on above: Performed By: #### TAVO RO ####[facility] [address]qpxl[address] [place] [address]Dr. Yilan ChangSPEC GRAVITY<=1.865Mttekkls9.005-<=1.025 The [facility] CenterComment on above:Performed By: #### TAVO RO ####[facility] [address]ref[address]of[address] [place], [place] [address]Dr. Davidson SaundersUA PROTEINNegativeNormalNEGATIVE/ TRACEThe [facility] CenterComment on above:Performed By: #### TAVO RO ####[facility] [address]ferhw[address] [place] [id number]. Davidson SaundersUR MICRO INDINDICATEDSalem City HospitalComment on above:Performed By: #### TAVO RO ####[facility] [address]aknbvu[address] [place] [id number]. Davidson Saunders Urobilinogen Qn (U)0.2 {Balaji'U}/dLNormal0.2 - 1.0The [facility] CenterComment on above:Performed By: #### TAVO RO ####[facility] [address]taihkmb[address] [place] [address]Dr. Davidson SaundersLIPID PROFILEon 12-30-2021 CHOL-HDL RATIO NORMSEE [facility] Health PrebleComment on above:Result Comment: 3.3 - 4.4 LOW RISK 4.4 - 7.1 AVERAGE RISK 7.1 - 11.0 MODERATE RISK >11.0 HIGH RISKPerformed By: #### POCGLUC #### [facility] [address] [place] [address] Dr. Davidson Cristobalesterol [Mass/Vol]170 mg/dLNormal<=200The [facility] Comment on above:Performed By: #### POCGLUC #### [facility] [address] [address] [address] Davidson Cristobalesterol in HDL [Mass/Vol]68 mg/dLCritically olaz43-67Loz [facility] CenterComment on above:Performed By: #### POCGLUC #### [facility] [address] [address] [address] Davidson Cristobalesterol in LDL [Mass/Vol]78.8 mg/dLSalem City HospitalComment on above:Performed By: #### POCGLUC #### [facility] [address] [address] [address] Yilan ChangCholesterol.total/Cholesterol in HDL [Mass ratio]2.5 {ratio} NormalMary Rutan HospitalComment on above:Performed By: #### POCGLUC #### [facility] [address] [address] [address] Davidson Garcia NORMAL> or = 60 mg/dl - LOW CARDIOVASCULAR RISK <40 mg/dl - HIGH CARDIOVASCULAR RISKSalem City HospitalComment on above:Performed By: #### POCGLUC #### [facility] [address] [address] [address] Davidson SaundersLDL CALC NORMALSEE BELOWNoMercy Health Kings Mills HospitalComment on above:Result Comment: <100 mg/dl OPTIMAL 100 - 129 mg/dl NEAR OR ABOVE OPTIMAL 130 - 159 mg/dl BORDERLINE HIGH 160 - 189 mg/dl HIGH >190 mg/dl VERY HIGH Performed By: #### POCGLUC #### [facility] [address] [address] [address] Davidson SaundersTriglyceride [Mass/Vol]116 mg/dLNormal<=150[facility] Comment on above:Performed By: #### POCGLUC #### [facility] [address] [address] [address] Davidson SaundersVLDL CALC23.2 mg/dLNoMercy Health Kings Mills HospitalComment on above: Performed By: #### POCGLUC #### [facility] [address] [address] [address] Davidson SaundersMRI BRAIN WO CONon [id number] BRAIN WO CONEXAM: MRI BRAIN WO CON CLINICAL INDICATION: Transient [...] the basis of chronic microvascular angiopathic changes. Fxua-dl-ooenbrkk symmetric global volume loss without lobar predominance. Commensurate enlargement system caliber prominence. 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 Normal marrow signal. No soft tissue abnormalities. Trace scattered paranasal sinus mucosal thickening. Mastoid air cells are well-aerated. 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 These could be on the basis of an embolic phenomenon. Electronically authenticated by: GISELLE BRENNAN Date: 2021-12-30 15:04[facility] GLUCOSEon 86-05-6068Tgbsjhz [Mass/Vol]441 mg/dL Critically jtgu19-674Rxl [facility] CenterComment on above:Performed By: #### POCGLUC #### [facility] [address] [place] [address] Dr. Davidson SaundersGlucose [Mass/Vol]179 mg/dLCritically qtka94-225TwpMary Rutan HospitalComment on above:Performed By: #### POCGLUC #### [facility] [address] [address] [address] Davidson SaundersGlucose [Mass/Vol]110 mg/dLCritically gblw15-721VcbMary Rutan HospitalComment on above:Performed By: #### A1C #### [facility] [address] [place] [address] Dr. Davidson SaundersPROF 14(COMP METB)on 63-62-6566Nhjibko [Mass/Vol]3.6 g/dLNormal 3.4-5.0The [facility] CenterComment on above:Performed By: #### POCGLUC #### [facility] [address] [place] [address] Dr. Davidson SaundersAlbumin/Globulin [Mass ratio]0.9 {ratio}NormalThe University Hospitals Beachwood Medical Centerment on above:Performed By: #### POCGLUC #### [facility] [address] [place] [address] Dr. Davidson SaundersALP [Catalytic activity/Vol]105 U/KSpjhuy14-520Rss [facility] CenterComment on above:Performed By: #### POCGLUC #### [facility] [address] [address] [address] Davidson Caraballo [Catalytic activity/Vol]20 U/ECrfvcw61-98Yzz [facility] CenterComment on above:Performed By: #### POCGLUC #### [facility] [address] [address] [address] Davidson Cohenon gap [Moles/Vol]17.1 mmol/LNormalMary Rutan Hospital Comment on above:Performed By: #### POCGLUC #### [facility] [address] [address] [address] Davidson SaundersAST [Catalytic activity/Vol]15 U/ZLgiwdd12-26Ypo [facility] CenterComment on above:Performed By: #### POCGLUC #### [facility] [address] [address] [address] Davidson SaundersBilirubin [Mass/Vol]0.3 mg/dLNormal0.2-1.0[facility] Comment on above:Performed By: #### POCGLUC #### [facility] [address] [address] [address] Davidson SaundersCalcium [Mass/Vol]9.3 mg/dLNormal8.5-10.1[facility] Comment on above:Performed By: #### POCGLUC #### [facility] [address] [address] [address] Davidson SaundersChloride [Moles/Vol]103 mmol/DFnoofm52-420MdxMary Rutan Hospital Comment on above:Performed By: #### POCGLUC #### [facility] [address] [address] [address] Davidson SaundersCO2 [Moles/Vol]25.0 mmol/ZStndsz05.0-32.0The [facility] Comment on above:Performed By: #### POCGLUC #### [facility] [address] [address] [address] Davidson SaundersCreatinine [Mass/Vol]1.36 mg/dLCritically high0.55-1.02Mary Rutan HospitalComment on above:Performed By: #### POCGLUC #### [facility] [address] [address] [address] Davidson GuillaumeGFR-AF IYDDELST35 mL/min/1.06p2Rldqzsekfx low>=60The [facility] CenterComment on above:Performed By: #### POCGLUC #### [facility] [address] [address] [address] Davidson GuillaumeGFR-NON AF PJSYGNRO04 mL/min/1.65d2Tnzlwgkmkr low>=60The [facility] CenterComment on above:Performed By: #### POCGLUC #### [facility] [address] [place] [address] Dr. Davidson SaundersGlobulin (S) [Mass/Vol]4.0 g/dLNormalThMartin Memorial HospitalComment on above:Performed By: #### POCGLUC #### [facility] [address] [place] [address] Dr. Davidson SaundersGlucose [Mass/Vol]103 mg/gRAdbsup80-086QekMary Rutan Hospital Comment on above:Performed By: #### POCGLUC #### [facility] [address] [place] [address] Dr. Davidson SaundersPotassium [Moles/Vol]4.1 mmol/LNormal3.5-5.1[facility] Comment on above:Performed By: #### POCGLUC #### [facility] [address] [place] [address] Dr. Davidson SaundersProtein [Mass/Vol]7.6 g/dLNormal6.4-8.2The [facility] Comment on above:Performed By: #### POCGLUC #### [facility] [address] [place] [address] Dr. Davidson SaundersSodium [Moles/Vol]141 mmol/FPppopn574-314Njd [facility] Comment on above:Performed By: #### POCGLUC #### [facility] [address] [address] [address] Davidson SaundersUrea nitrogen [Mass/Vol]19.0 mg/dLCritically high7.0-18.0The [facility] CenterComment on above:Performed By: #### POCGLUC #### [facility] [address] [address] [address] Davidson Sawyer nitrogen/Creatinine [Mass ratio]14.0 mg/mgNoMercy Health Kings Mills HospitalComment on above:Performed By: #### POCGLUC #### [facility] [address] [address] [address] Davidson Dodson 97-99-4585ZNT3.403 uIU/mLNormal0.358-3.740The [facility] CenterComment on above:Performed By: #### POCGLUC #### [facility] [address] [address] [address] Davidson Rodriguez MICROSCOPIC ONLYon 57-61-7074WJQRSDBWBOJNBKjraoxzuNQZM SEEN The [facility] CenterComment on above:Performed By: #### TAVO RO ####[facility] Vehtaoayeo[address] Davidson SaundersBacteria identified Cx Nom (U)INDICATEDSalem City Hospital Comment on above:Performed By: #### TAVO RO ####[facility] Kcbmfffwgb9052 [address] Davidson ChangCASTNONE SEEN NormalNONE SEENMary Rutan HospitalComment on above:Performed By: #### TAVO RO ####[facility] [address] [address]Dr. Davidson SaundersCrystals LM Nom (Urine sed)NONE SEENNormalNONE SEENMary Rutan HospitalComuniversity of michigan health on above:Performed By: #### CHARO RORO ####[facility] [address] [address]Dr. Davidson Saunders Epithelial cells LM Ql (Urine sed)RARENormalNONE SEEN /RAREMary Rutan Hospital Comment on above:Performed By: #### CHARO RORO ####[facility] Vezmsbkxqy3771 [address] Davidson SaundersMUCOUSNONE SEEN NormalNONE SEENThe [facility] CenterComment on above:Performed By: #### TAVO RO ####[facility] [address] [place], [place] [address]K[address]. [address] RigfpKMF3-0Hnfkoa4-8Rtp [facility] CenterComment on above: Performed By: #### TAVO RO ####[facility] [address]ccj[address] [place], [place]Dr. Davidson MbzccKPK96-95YqbflofgQUMP SEENThe [facility] CenterComment on above:Performed By: #### TAVO RO ####[facility] [address]iptxq[address] [place], [place]Dr. Davidson Sinclair CAROTID ART BILon [id number] CAROTID ART BILEXAMINATION: US CAROTID ART KWAME HISTORY: Transient cerebral [...] Electronically authenticated by: ABHI BECERRIL Date: 2021-12-30 07:[address] [place], [place] [address]XR CHEST 2 Von [id number] CHEST 2 VEXAMINATION: XR CHEST 2 V HISTORY: Confusion COMPARISON: Chest x-ray [...] Electronically authenticated by: ABHI CARO Date: 2021-12-29 22:00Salem City HospitalCARDIAC DIEGO ADMITon 08-05-0164ZU [Catalytic activity/Vol]48 U/PDepddr11-415Yat [facility] CenterComment on above:Performed By: #### A1C #### [facility] [address] [place] [address] Dr. Davidson Le.MB [Mass/Vol]0.92 ng/mLNormal<=3.60[facility] Comment on above:Performed By: #### A1C #### [facility] [address] [place] [address] Dr. Davidson SaundersHSTROP15.6 pg/mLNormal4.0-51.3The [facility] CenterComment on above:Result Comment: CUT-OFF POINTS HAVE BEEN ESTABLISHED BASED ON THE FOURTH UNIVERSAL DEFINITIONS OF MYOCARDIAL INFARCTION. THE UPPER REFERENCE LIMIT (URL) OF TROPONIN, DEFINED THE 99TH PERCENTILE OF cTnI DISTRIBUTION IN A REFERENCE POPULATION, HAS BEEN CONFIRMED THE DECISION THRESHOLD FOR NV DIAGNOSIS.Performed By: #### A1C #### [facility] [address] [place] [address] Dr. Davidson CrystalO57 ng/mLNormal9-82The [facility] CenterComment on above: Performed By: #### A1C #### [facility] [address] [place] [address] Dr. Davidson Barroso AUTO DIFFon 54-82-5718BKPV #0.1 103/ulNormal0.0-0.1The [facility] CenterComment on above:Performed By: #### CBC ####[facility] [address] [address]Dr.Yilan SaundersBasophils/100 WBC (Bld)0.4 %Normal0.2-2.0The [facility] CenterComment on above:Performed By: #### CBC ####[facility] Gemkijldak[address] [place], [place] [address]Dr.Davidson ChangEO #0.1 103/ulNormal0.0-0.7The [facility] CenterComment on above:Performed By: #### CBC ####[facility] Hxjwsynatn[address] [place], [place] [address]Dr.Davidson ChangEosinophils/100 WBC (Bld)1.0 %Normal 0.9-7.0The [facility] HospitalComment on above:Performed By: #### CBC ####[facility] Eyuyxdlpuq[address] [place], [place] [address]Dr.Davidson Saunders Erythrocyte distribution width (RBC) [Ratio]13.2 %Vxfbtd74.0-15.0The [facility] CenterComment on above:Performed By: #### CBC ####[facility] Wcvzodbpak[address] [place], [place] [address]Dr.Davidson ChangHematocrit (Bld) [Volume fraction]31.6 %Critically low36.0-48.0The [facility] CenterComment on above:Performed By: #### CBC ####[facility] Dkkcrtwjrx[address] [place], [place] [address]Dr.Davidson ChangHemoglobin (Bld) [Mass/Vol]10.5 g/dL Critically low12.0-16.0The [facility] CenterComment on above:Performed By: #### CBC ####[facility] Mebpiidujz[address] [place], [place] [address]Dr. Davidson ChangIG #0.04 10e3/ulCritically high0.00-0.03The [facility] CenterComment on above:Performed By: #### CBC ####[facility] Ffrpfjgwhf[address] [place], [place] [address]Dr.Davidson ChangIG %0.4 %Normal0.0-0.5The [facility] CenterComment on above:Performed By: #### CBC ####[facility] Egfzcjklad[address] [place], [place] [address]Dr.Davidson SaundersLYH #1.6 103/ulNormal1.2-3.8The [facility] CenterComment on above:Performed By: #### CBC ####[facility] [address] [address]Dr. Davidson SaundersLymphocytes/100 WBC (Bld)14.1 %Critically low20.5-60.0The [facility] CenterComment on above:Performed By: #### CBC ####[facility] [address] [address]Dr.Davidson SaundersMANUAL DIFF REQ NONormalThe [facility] CenterComment on above:Performed By: #### CBC ####[facility] Hurfyhwyjd[address] [place], [place] [address]Dr. Davidson SaundersH (RBC) [Entitic mass]28.0 ibWrxlhd52.7-34.0The [facility] Comment on above:Performed By: #### CBC ####[facility] Wytijplwmt[address] [place], [place] [address]Dr.Davidson SaundersHC (RBC) [Mass/Vol]33.2 g/dL Uqnhkc45.9-35.2The [facility] CenterComment on above:Performed By: #### CBC ####[facility] Ctvvphauzr[address] [place], [place] [address]Dr. Davidson SaundersV (RBC) [Entitic vol]84.3 yTOszqcr33.0-99.0The [facility] Comment on above:Performed By: #### CBC ####[facility] V[address]intnsiix[address] [place], [place] [address]Dr.Davidson SaundersMONO #1.0 103/ulCritically high0.3-0.8The [facility] CenterComment on above:Performed By: #### CBC ####[facility] K[address]vlnalvoi[address] [place], [place] [address]Dr. Davidson SaundersMonocytes/100 WBC (Bld)9.0 %Normal1.7-12.0The [facility] Comment on above:Performed By: #### CBC ####[facility] [address] [address]Dr.Davidson SaundersNEUT #8.4 103/ulCritically high1.4-6.5The [facility] CenterComment on above:Performed By: #### CBC ####[facility] [address] [address]Dr. Davidson SaundersNeutrophils/100 WBC (Bld)75.1 %Critically high43.0-75.0The [facility] CenterComment on above:Performed By: #### CBC ####[facility] [address] [address]Dr.Davidson SaundersPlatelet mean volume (Bld) [Entitic vol]9.0 fLCritically low9.5-13.5The [facility] Comment on above:Performed By: #### CBC ####[facility] [address] [address]Dr.Davidson SaundersPLT257 103/efAanrog151-784Gbm [facility] CenterComment on above:Performed By: #### CBC ####[facility] [address] [address]Dr.Davidson SaundersRBC3.75 106/ul Critically low4.20-5.40The [facility] CenterComment on above:Performed By: #### CBC ####[facility] [address] [address]Dr. Davidson aSundersWBC11.2 103/ulCritically high4.0-11.0The [facility] CenterComment on above:Performed By: #### CBC ####[facility] [address] [address]DrRafita SaundersPROF CHEM 8 (BAS METB)on 97-52-1007Hwijh gap [Moles/Vol]9.9 mmol/LNormalThe [facility] CenterComment on above:Performed By: #### A1C #### [facility] [address] [address] [address] Davidson SaundersCalcium [Mass/Vol]9.5 mg/dLNormal8.5-10.1[facility] Comment on above:Performed By: #### A1C #### [facility] [address] [address] [address] Davidson SaundersChloride [Moles/Vol]101 mmol/COnkedz30-685Die [facility] Comment on above:Performed By: #### A1C #### [facility] [address] [address] [address] Davidson SaundersCO2 [Moles/Vol]28.0 mmol/YIharxf80.0-32.0The [facility] Comment on above:Performed By: #### A1C #### [facility] [address] [address] [address] Davidson SaundersCreatinine [Mass/Vol]1.41 mg/dLCritically high0.55-1.02The [facility] CenterComment on above:Performed By: #### A1C #### [facility] [address] [address] [address] Davidson GuillaumeGFR-AF ADJMMKVK45 mL/min/1.47k8Ffydkqaiau low>=60The [facility] CenterComment on above:Performed By: #### A1C #### [facility] [address] [address] [address] Davidson GuillaumeGFR-NON AF HAYCHUYH31 mL/min/1.25o5Vosooywejh low>=60The [facility] CenterComment on above:Performed By: #### A1C #### [facility] [address] [address] [address] Davidson SaundersGlucose [Mass/Vol]130 mg/dLCritically jkry61-177Ljh [facility] CenterComment on above:Performed By: #### A1C #### [facility] [address] [address] [address] Davidson SaundersPotassium [Moles/Vol]3.9 mmol/LNormal3.5-5.1The [facility] Comment on above:Performed By: #### A1C #### [facility] [address] [address] [address] Davidson SaundersSodium [Moles/Vol]135 mmol/LCritically cfy267-954Spu [facility] CenterComment on above:Performed By: #### A1C #### [facility] [address] [address] [address] Davidson SaundersUrea nitrogen [Mass/Vol]20.0 mg/dLCritically high7.0-18.0The [facility] CenterComment on above:Performed By: #### A1C #### [facility] [address] [address] [address] Davidson SaundersUrea nitrogen/Creatinine [Mass ratio]14.2 mg/mgNoMercy Health Kings Mills HospitalComment on above:Performed By: #### A1C #### [facility] [address] [address] [address] Davidson Baker T3on 65-92-7297WUNT T32.05 pg/mlLCritically low2.18-3.98The [facility] CenterComment on above:Performed By: #### FT3, TSH ####[facility] [address] [address]Dr. Davidson SaundersFREE T4on 66-86-6945Gnqi T4 [Mass/Vol]0.99 ng/dLNormal0.76-1.46The [facility] Comment on above:Performed By: #### FT4 ####[facility] [address] [address]Dr.Yilan SaundersGLYCOHEMOGLOBIN A1Con 40-61-7248WPE RECOMMENDATIONSEE BELOWSalem City HospitalComment on above:Result Comment: ADA RECOMMENDED LIMIT 4.0 - 6.0 ADA THERAPEUTIC TARGET < 7.0 ACTION SUGGESTED > 7.0Performed By: #### A1C #### [facility] [address] [address] [address] Davidson SaundersGlucose [Mass/Vol]134 mg/dLNoMercy Health Kings Mills HospitalComment on above:Performed By: #### A1C #### [facility] [address] [address] [address] Davidson SaundersHbA1c (Bld) [Mass fraction]6.3 %Critically high4.5-6.2The [facility] CenterComment on above:Performed By: #### A1C #### [facility] [address] [place], [place] [address] Dr. Davidson Dodson 48-35-4043AUS6.994 uIU/mLNormal0.358-3.740The [facility] CenterComment on above:Performed By: #### FT3, TSH ####[facility] [address]zb[address] [place], [place] [address]SkDr. Cedeño Anita T3on 10-99-2072SM95.29 pg/mLNormal2.00-4.40Nort[facility] hospitaln [facility] SpecialistComment on above:Performed By: #### TSH, FT4, FT3 #### [facility] [address] [place], [place] [id number] T4on 05-74-9674Lemw T4 [Mass/Vol]1.70 ng/dLNormal 0.80-1.80[facility]ort[facility] hospitaln [facility] SpecialistComment on above:Performed By: #### TSH, FT4, FT3 #### [facility] [address] [place], [place] [id number] 78-85-7091YUP8.069 uIU/mLLow0.400-4.500NortFostoria City Hospital SpecialistComment on above:Performed By: #### TSH, FT4, FT3 #### [facility] [address] [place], [place] [id number] Metabolic Panelon 24-35-7702Dbqty gap [Moles/Vol]15 mmol/MCdjsox20-96Pvcvlwhu [facility] SpecialistComment on above:Result Comment: Effective 05/28/2019 reference range changed.Performed By: #### BMP #### [facility] [address] [place], [place] [id number] [Mass/Vol]9.7 mg/dLNormal8.6-10.2[facility] SpecialistComment on above:Performed By: #### BMP #### [facility] [address] [place], [place] [id number] [Moles/Vol]104 mmol/ZWzhqmc72-250Thpdxpjk [place] [facility] SpecialistComment on above:Performed By: #### BMP #### [facility] [address] [place], [place] [id number] [Moles/Vol]25 mmol/BEnwadg89-50Cnurvzuw [place] [facility] SpecialistComment on above:Performed By: #### BMP #### [facility] [address] [place], [place] [id number] [Mass/Vol]1.5 mg/dLHigh0.6-1.4NoC[facility] Clinic Medina [facility] SpecialistComment on above:Performed By: #### BMP #### [facility] [address] [place], [place] [id number] mL/min/1.18u1Ylf>60[facility] Specialist Comment on above:Performed By: #### BMP #### [facility] [address] [place], [place] [id number] mL/min/1.53n4Pcn>60[facility] Specialist Comment on above:Performed By: #### BMP #### [facility] [address] [place], [place] [id number] [Mass/Vol]137 mg/uFIucu12-15Boclnsvx [place] [facility] SpecialistComment on above:Result Comment: For FASTING Glucose --- ADA reference ranges: Normal 65-99 mg/dl Prediabetes 100-125 Diabetes >/= 126Performed By: #### BMP #### [facility] [address] [place], [place] [id number] [Moles/Vol]4.3 mmol/LNormal3.5-5.5NoCleveland Clinic Medina Hospital SpecialistComment on above:Performed By: #### BMP #### [facility] [address] [place], [place] [id number] [Moles/Vol]140 mmol/MAeqoue482-932Lzpiwdyg [place] [facility] SpecialistComment on above:Performed By: #### BMP #### [facility] [address] [place], [place] [id number] nitrogen [Mass/Vol]17 mg/dLNormal7-25[facility] SpecialistComment on above:Performed By: #### BMP #### [facility] [address] [facility] [place] [id number] CHEM 8 (BAS METB)on 40-05-5104Qygga gap [Moles/Vol]13.6 mmol/LNormalThe [facility] CenterComment on above:Performed By: #### BMP ####[facility] Buaqiekkit[address] [place], [place] [address]Dr. Yilan ChangCalcium [Mass/Vol]8.8 mg/dLNormal8.5-10.1The [facility] CenterComment on above:Performed By: #### BMP ####[facility] Xngrgymtyq[address] [place], [place] [address]Dr.Yilan ChangChloride [Moles/Vol]103 mmol/LNormal 98-107The [facility] CenterComment on above:Performed By: #### BMP ####[facility] Inuivltbck[address] [place], [place] [address]Dr.Yilan ChangCO2 [Moles/Vol]25.5 mmol/SSobmvp03.0-30.0The [facility] CenterComment on above: Performed By: #### BMP ####[facility] Pudbnffnli[address] [place], [place] [address]Dr.Yilan ChangCreatinine [Mass/Vol]1.80 mg/dL Critically high0.52-1.04The [facility] CenterComment on above:Performed By: #### BMP ####[facility] [address]ddomypfbe[address] [place], [place] [address]Dr.Yilan ChangEGFR-AF KMMSPHQM20 mL/min/1.21b5Ubnlzegqfq low>=60The [facility] CenterComment on above:Performed By: #### BMP ####[facility] [address]qsqavyll[address] [place], [place] [address]Dr.Yilan ChangEGFR-NON AF SQTGUFVH09 mL/min/1.70q0Ctwtrqyedd low>=60The [facility] CenterComment on above: Performed By: #### BMP ####[facility] [address]ptimrjlxo[address] [place], [place] [address]Dr.Yilan ChangGlucose [Mass/Vol]112 mg/dLCritically bbzf14-341Vil [facility] CenterComment on above:Performed By: #### BMP ####[facility] [address] [address]Dr. Davidson ChangPotassium [Moles/Vol]4.1 mmol/LNormal3.4-5.0The [facility] Comment on above:Performed By: #### BMP ####[facility] [address] [address]Dr.Davidson ChangSodium [Moles/Vol]138 mmol/L Dfuqcu934-968Pgr [facility] CenterComment on above:Performed By: #### BMP ####[facility] Funwamsuof[address] [place], [place] [address]Dr. Davidson ChangUrea nitrogen [Mass/Vol]26.0 mg/dLCritically high7.0-18.0The [facility] CenterComment on above:Performed By: #### BMP ####[facility] [address]vwtbomai[address] [place], [place] [address]Dr.Davidson ChangUrea nitrogen/Creatinine [Mass ratio]14.4 mg/mgNormalThe [facility] CenterComment on above:Performed By: #### BMP ####[facility] [address]fqvyjop[address] [place], [place] [address]DrRafita JuddC AUTO DIFFon 12-28-0366KNWO #0.1 103/ulNormal0.0-0.1The [facility] CenterComment on above:Performed By: #### POCGLUC #### [facility] [address] [place] [address] Dr. Davidson SaundersBasophils/100 WBC (Bld)0.8 %Normal0.2-2.0The [facility] Comment on above:Performed By: #### POCGLUC #### [facility] [address] [place] [address] Dr. Cedeño ChangEElena #0.5 103/ulNormal0.0-0.7The [facility] CenterComment on above: Performed By: #### POCGLUC #### [facility] [address] [place], [place] [address] Dr. Davidson Guillaumeosinophils/100 WBC (Bld)5.4 %Normal0.9-7.0The [facility] Comment on above:Performed By: #### POCGLUC #### [facility] [address] [place] [address] Dr. Davidson Guillaumerythrocyte distribution width (RBC) [Ratio]12.6 %Lidxab74.0-15.0 The [facility] CenterComment on above:Performed By: #### POCGLUC #### [facility] [address] [place] [address] Dr. Davidson SaundersHematocrit (Bld) [Volume fraction]31.6 %Critically low36.0-48.0 The [facility] CenterComment on above:Performed By: #### POCGLUC #### [facility] [address] [place] [address] Dr. Davidson SaundersHemoglobin (Bld) [Mass/Vol]10.0 g/dLCritically low12.0-16.0The [facility] CenterComment on above:Performed By: #### POCGLUC #### [facility] [address] [place] [address] Dr. Davidson SaundersIG #0.04 10e3/ulCritically high0.00-0.03The [facility] Comment on above:Performed By: #### POCGLUC #### [facility] [address] [place] [address] Dr. Davidson SaundersIG %0.5 %Normal0.0-0.5The [facility] CenterComment on above: Performed By: #### POCGLUC #### [facility] [facility] [address] [place] [address] Dr. Davidson PayanH #2.8 103/ulNormal1.2-3.8The [facility] CenterComment on above:Performed By: #### POCGLUC #### [facility] [address] [place] [address] Dr. Davidson Liumphocytes/100 WBC (Bld)31.1 %Tifubj51.5-60.0The [facility] CenterComment on above:Performed By: #### POCGLUC #### [facility] [address] [address] [address] Davidson Mena DIFF REQNONormalThe [facility] CenterComment on above: Performed By: #### POCGLUC #### [facility] [address] [place] [address] Dr. Davidson Hernandez (RBC) [Entitic mass]28.6 jkKngivl56.7-34.0The [facility] HospitalComment on above:Performed By: #### POCGLUC #### [facility] [address] [place] [address] Dr. Davidson Hernandez (RBC) [Mass/Vol]31.6 g/aQXnsrxi02.9-35.2The [facility] CenterComment on above:Performed By: #### POCGLUC #### [facility] [address] [place] [address] Dr. Davidson Hernandez (RBC) [Entitic vol]90.3 fRAxpkfz84.0-99.0The [facility] CenterComment on above:Performed By: #### POCGLUC #### [facility] [address] [place] [address] Dr. Davidson Martin #0.7 103/ulNormal0.3-0.8The [facility] CenterComment on above:Performed By: #### POCGLUC #### [facility] [address] [place] [address] Dr. Davidson Cooperocytes/100 WBC (Bld)7.5 %Normal1.7-12.0The [facility] Comment on above:Performed By: #### POCGLUC #### [facility] [address] [place] [address] Dr. Davidson Pedroza #4.9 103/ulNormal1.4-6.5The [facility] CenterComment on above:Performed By: #### POCGLUC #### [facility] [address] [place] [address] Dr. Davidson Grahamutrophils/100 WBC (Bld)54.7 %Miprxd70.0-75.0The [facility] CenterComment on above:Performed By: #### POCGLUC #### [facility] [address] [address] [address] Davidson SaundersPlatelet mean volume (Bld) [Entitic vol]8.6 fLCritically low 9.5-13.5The [facility] CenterComment on above:Performed By: #### POCGLUC #### [facility] [address] [address] [address] Davidson SaundersPLT263 103/lfKfcxpp030-491Ucw [facility] CenterComment on above: Performed By: #### POCGLUC #### [facility] [address] [place] [address] Dr. Davidson SaundersRBC3.50 106/ulCritically low4.20-5.40The [facility] CenterComment on above:Performed By: #### POCGLUC #### [facility] [address] [place] [address] Dr. Davidson SaundersWBC8.9 103/ulNormal4.0-11.0The [facility] CenterComment on above: Performed By: #### POCGLUC #### [facility] [address] [place] [address] Dr. Davidson SaundersGLYCOHEMOGLOBIN A1Con 28-48-6314EHL RECOMMENDATIONADA THERAPEUTIC TARGET 6.0 - 7.0 ACTION SUGGESTED > 7.0NoMercy Health Kings Mills HospitalComment on above:Performed By: #### A1C #### [facility] [address] [place] [address] Dr. Davidson SaundersGlucose [Mass/Vol]128 mg/dLNoMercy Health Kings Mills HospitalComment on above:Performed By: #### A1C #### [facility] [address] [place] [address] Dr. Davidson SaundersHbA1c (Bld) [Mass fraction]6.1 %Critically high<=6.0The [facility] CenterComment on above:Performed By: #### A1C #### [facility] [address] [place] [address] Dr. Davidson SaundersLIPID PROFILEon 12-22-4285NCBB-HDL RATIO NORMSEE [facility] Health PrebleComment on above:Result Comment: 3.3 - 4.4 LOW RISK 4.4 - 7.1 AVERAGE RISK 7.1 - 11.0 MODERATE RISK >11.0 HIGH RISKPerformed By: #### A1C #### [facility] [address] [address] [address] Davidson SaundersCholesterol [Mass/Vol]139 mg/dLNormal<=200[facility] Comment on above:Performed By: #### A1C #### [facility] [address] [address] [address] Davidson SaundersCholesterol in HDL [Mass/Vol]47 mg/ePLgomxm85-78RilMary Rutan HospitalComment on above:Performed By: #### A1C #### [facility] [address] [place] [address] Dr. Davidson SaundersCholesterol in LDL [Mass/Vol]57.0 mg/dLSalem City HospitalComment on above:Performed By: #### A1C #### [facility] [address] [address] [address] Davidson Jarrell.total/Cholesterol in HDL [Mass ratio]3.0 {ratio} NormalMary Rutan HospitalComment on above:Performed By: #### A1C #### [facility] [address] [place] [address] Dr. Davidson Garcia NORMAL> or = 60 mg/dl - LOW CARDIOVASCULAR RISK <40 mg/dl - HIGH CARDIOVASCULAR RISKSalem City HospitalComment on above:Performed By: #### A1C #### [facility] [address] [address] [address] Davidson SaundersLDL CALC NORMALSEE [facility] PrebleComment on above:Result Comment: <100 mg/dl OPTIMAL 100 - 129 mg/dl NEAR OR ABOVE OPTIMAL 130 - 159 mg/dl BORDERLINE HIGH 160 - 189 mg/dl HIGH >190 mg/dl VERY HIGH Performed By: #### A1C #### [facility] [address] [place] [address] Dr. Yilan ChangTriglyceride [Mass/Vol]175 mg/dLCritically high<=150The [facility] CenterComment on above:Performed By: #### A1C #### [facility] [address] [place] [address] Dr. Davidson SaundersVLDL CALC35.0 mg/dLNormalThe [facility] CenterComment on above: Performed By: #### A1C #### [facility] [address] [place] [address] Dr. Davidson SaundersPROF 14(COMP METB)on 72-75-2001Jstxzck [Mass/Vol]3.4 g/dLNormal 3.4-5.0The [facility] CenterComment on above:Performed By: #### A1C #### [facility] [address] [place] [address] Dr. Davidson SaundersAlbumin/Globulin [Mass ratio]0.9 {ratio}NormalThe [facility] CenterComment on above:Performed By: #### A1C #### [facility] [address] [place] [address] Dr. Davidson MerchantP [Catalytic activity/Vol]104 U/GSpdlwl28-371Cas [facility] CenterComment on above:Performed By: #### A1C #### [facility] [address] [place] [address] Dr. Davidson Caraballo [Catalytic activity/Vol]21 U/PNrjida83-77Cca [facility] CenterComment on above:Performed By: #### A1C #### [facility] [address] [place] [address] Dr. Davidson Sorto gap [Moles/Vol]13.1 mmol/LNormalThe [facility] on above:Performed By: #### A1C #### [facility] [address] [place] [address] Dr. Davidson SaundersAST [Catalytic activity/Vol]12 U/LCritically hdh94-11Eue [facility] CenterComment on above:Performed By: #### A1C #### [facility] [address] [place] [address] Dr. Davidson SaundersBilirubin [Mass/Vol]0.3 mg/dLNormal0.2-1.3The [facility] Comment on above:Performed By: #### A1C #### [facility] [address] [place] [address] Dr. Davidson SaundersCalcium [Mass/Vol]9.4 mg/dLNormal8.5-10.1The [facility] Comment on above:Performed By: #### A1C #### [facility] [address] [place] [address] Dr. Davidson SaundersChloride [Moles/Vol]108 mmol/LCritically vbuh20-421Ugx [facility] CenterComment on above:Performed By: #### A1C #### [facility] [address] [place] [address] Dr. Davidson SaundersCO2 [Moles/Vol]26.4 mmol/GKwodnc55.0-30.0The [facility] Comment on above:Performed By: #### A1C #### [facility] [address] [place] [address] Dr. Davidson SaundersCreatinine [Mass/Vol]1.59 mg/dLCritically high0.52-1.04[facility] HospitalComment on above:Performed By: #### A1C #### [facility] [address] [place] [address] Dr. Davidson GuillaumeGFR-AF BGXYGAMV27 mL/min/1.01p8Sxczktrwob low>=60The [facility] CenterComment on above:Performed By: #### A1C #### [facility] [address] [place] [address] Dr. Davidson GuillaumeGFR-NON AF TZMUTTHW83 mL/min/1.50x0Bdmrrcpdme low>=60The [facility] CenterComment on above:Performed By: #### A1C #### [facility] [address] [place] [address] Dr. Davidson SaundersGlobulin (S) [Mass/Vol]3.8 g/dLNormalThe [facility] CenterComment on above:Performed By: #### A1C #### [facility] [address] [place] [address] Dr. Davidson SaundersGlucose [Mass/Vol]86 mg/sGQwsksf07-961BsoMary [facility] Hospital Comment on above:Performed By: #### A1C #### [facility] [address] [place] [address] Dr. Davidson SaundersPotassium [Moles/Vol]5.5 mmol/LCritically high3.4-5.0The [facility] CenterComment on above:Performed By: #### A1C #### [facility] [address] [place] [address] Dr. Davidson SaundersProtein [Mass/Vol]7.2 g/dLNormal6.1-8.2[facility] Comment on above:Performed By: #### A1C #### [facility] [address] [place] [address] Dr. Davidson Roblesdium [Moles/Vol]142 mmol/VMfnega775-162IycMary Rutan Hospital Comment on above:Performed By: #### A1C #### [facility] [address] [place] [address] Dr. Davidson SaundersUrea nitrogen [Mass/Vol]20.0 mg/dLCritically high7.0-18.0The [facility] CenterComment on above:Performed By: #### A1C #### [facility] [address] [place] [address] Dr. Davidson Sawyer nitrogen/Creatinine [Mass ratio]12.6 mg/mgNormalThe [facility] CenterComment on above:Performed By: #### A1C #### [facility] [address] [place] [address] Dr. Davidson Barroso AUTO DIFFon [id number] #0.1 103/ulNormal0.0-0.1The [facility] CenterComment on above:Performed By: #### CBC #### [facility] [address] [place] [address] Dr. Davidson SaundersBasophils/100 WBC (Bld)0.7 %Normal0.2-2.0The [facility] Comment on above:Performed By: #### CBC #### [facility] [address] [place] [address] Dr. Davidson Root #0.3 103/ulNormal0.0-0.7The [facility] CenterComment on above: Performed By: #### CBC #### [facility] [address] [place] [address] Dr. Davidson Guillaumeosinophils/100 WBC (Bld)3.3 %Normal0.9-7.0The [facility] Comment on above:Performed By: #### CBC #### [facility] [address] [place] [address] Dr. Davidson Guillaumerythrocyte distribution width (RBC) [Ratio]13.0 %Wmhtiy36.0-15.0 The [facility] CenterComment on above:Performed By: #### CBC #### [facility] [address] [place] [address] Dr. Davidson SaundersHematocrit (Bld) [Volume fraction]30.2 %Critically low36.0-48.0 The [facility] CenterComment on above:Performed By: #### CBC #### [facility] [address] [place] [address] Dr. Davidson SaundersHemoglobin (Bld) [Mass/Vol]9.8 g/dLCritically low12.0-16.0The [facility] CenterComment on above:Performed By: #### CBC #### [facility] [address] [place] [address] Dr. Davidson Leon #0.04 10e3/ulCritically high0.00-0.03The [facility] Comment on above:Performed By: #### CBC #### [facility] [address] [place] [address] Dr. Davidson Leon %0.4 %Normal0.0-0.5The [facility] CenterComment on above: Performed By: #### CBC #### [facility] [address] [place] [address] Dr. Davidson Alan #2.9 103/ulNormal1.2-3.8The [facility] CenterComment on above:Performed By: #### CBC #### [facility] [address] [place] [address] Dr. Davidson Liumphocytes/100 WBC (Bld)31.0 %Rqfrer53.5-60.0The [facility] Centerment on above:Performed By: #### CBC #### [facility] [address] [place] [address] Dr. Davidson ForresterUAL DIFF REQNONormalThe [facility] CenterComment on above: Performed By: #### CBC #### [facility] [address] [place] [address] Dr. Davidson Hernandez (RBC) [Entitic mass]28.5 psBjdxzq65.7-34.0The [facility] CenterComment on above:Performed By: #### CBC #### [facility] [address] [place] [address] Dr. Davidson Hernandez (RBC) [Mass/Vol]32.5 g/nEKcvdvk86.9-35.2The [facility] CenterComment on above:Performed By: #### CBC #### [facility] [address] [place] [address] Dr. Davidson Hernandez (RBC) [Entitic vol]87.8 oLBiqvsk32.0-99.0The [facility] CenterComment on above:Performed By: #### CBC #### [facility] [address] [place] [address] Dr. Davidson Martin #0.7 103/ulNormal0.3-0.8The [facility] CenterComment on above:Performed By: #### CBC #### [facility] [address] [place] [address] Dr. Davidson Cooperocytes/100 WBC (Bld)7.8 %Normal1.7-12.0The [facility] Comment on above:Performed By: #### CBC #### [facility] [address] [place] [address] Dr. Davidson Pedroza #5.2 103/ulNormal1.4-6.5The [facility] CenterComment on above:Performed By: #### CBC #### [facility] [address] [address] [address] Davidson SaundersNeutrophils/100 WBC (Bld)56.8 %Matreq68.0-75.0The [facility] CenterComment on above:Performed By: #### CBC #### [facility] [address] [address] [address] Davidson Salguerolet mean volume (Bld) [Entitic vol]10.2 fLNormal9.5-13.5The [facility] CenterComment on above:Performed By: #### CBC #### [facility] [address] [place] [address] Dr. Davidson SaundersPLT227 103/bdIrzctz883-124Sap [facility] CenterComment on above: Performed By: #### CBC #### [facility] [address] [place] [address] Dr. Davidson SaundersRBC3.44 106/ulCritically low4.20-5.40The [facility] CenterComment on above:Performed By: #### CBC #### [facility] [address] [place] [address] Dr. Davidson SaundersWBC9.2 103/ulNormal4.0-11.0The [facility] CenterComment on above: Performed By: #### CBC #### [facility] [address] [place] [address] Dr. Cedeño ChangECHOCARDIElena M/2D COMPLETEon [id number] M/2D COMPLETE Patient: ELEANOR MCCLAIN Exam Date: 08/12/2021 : 1950 Gender:F Ordering : DR. ALIYAH ROACH . Admission #: [id number] Family : DR GRAYSON HERNANDEZ . Order #: [id number] CLICK HERE TO VIEW EXAM ECHOCARDIOGRAM REPORT [...] by: Rod Mcfadden M.D. on 08/12/2021 at 17:13[facility]A HEAD WO CONon [id number] HEAD WO CONEXAMINATION: MRA HEAD WO CON HISTORY: H/O: TIA COMPARISON: None. TECHNIQUE: MR angiogram of the head was obtained with 3D nscq-lt-iujguc technique. Maximum intensity projection images of the [...] Electronically authenticated by: MANJEET GREENFIELD Date: 2021-08-12 15:[facility] HealthcareA NECK WO CONon [id number] NECK WO CONEXAMINATION: MRA NECK WO CON HISTORY: H/O: TIA. Dizziness, history of stroke. COMPARISON: None. TECHNIQUE: MR angiogram of the neck was obtained with axial 2-D and 3-D khxo-tu-ltqfzz technique. Maximum intensity projection images were obtained. FINDINGS: Aortic arch is not included in the mdkxl-jp-shyy. Narrowing of the origin of the right [...] Electronically authenticated by: MANJEET GREENFIELD Date: 2021-08-12 15:[facility] BRAIN WO CONon [id number] BRAIN WO CONEXAMINATION: MRI BRAIN WO CON, 08/12/2021 12:07 PM [...] Electronically authenticated by: ABHI BECERRIL Date: 2021-08-12 15:22[facility] HospitalPROF 14(COMP METB)on [id number] [Mass/Vol]3.4 g/dLNormal 3.4-5.0[facility] HospitalComment on above:Performed By: #### CMP ####[facility] [address] [place], [place] [address]Dr.Davidson Saunders Albumin/Globulin [Mass ratio]1.0 {ratio}NormalThe [facility] CenterComment on above:Performed By: #### CMP ####[facility] [address] [place], [place] [address]Dr.Davidson SaundersALP [Catalytic activity/Vol]101 U/L Cpawiy29-701Kzr [facility] CenterComment on above:Performed By: #### CMP ####[facility] [address] [place], [place] [address]Dr. Davidson ChangALT [Catalytic activity/Vol]21 U/RSpaqqq53-44Yzd [facility] Comment on above:Performed By: #### CMP ####[facility] [address] [place], [place] [address]Dr.Davidson SaundersAnion gap [Moles/Vol]12.6 mmol/LNormalThe [facility] CenterComment on above:Performed By: #### CMP ####[facility] [address] [place], [place] [address]Dr. Davidson ChangAST [Catalytic activity/Vol]18 U/NZrrjye08-13Tnh [facility] Comment on above:Performed By: #### CMP ####[facility] [address] [address]Dr.Yilan ChangBilirubin [Mass/Vol]0.2 mg/dL Normal0.2-1.3The [facility] CenterComment on above:Performed By: #### CMP ####[facility] [address] [place], [place] [address]Dr. Yilan ChangCalcium [Mass/Vol]9.0 mg/dLNormal8.5-10.1The [facility] CenterComment on above:Performed By: #### CMP ####[facility] [address] [place], [place] [address]Dr.Yilan ChangChloride [Moles/Vol]107 mmol/LNormal 98-107The [facility] CenterComment on above:Performed By: #### CMP ####[facility] [address] [place], [place] [address]Dr.Yilan ChangCO2 [Moles/Vol]27.6 mmol/IDivklb34.0-30.0The [facility] CenterComment on above: Performed By: #### CMP ####[facility] [address] [place], [place] [address]Dr.Yilan ChangCreatinine [Mass/Vol]1.61 mg/dL Critically high0.52-1.04The [facility] CenterComuniversity of [facility] health on above:Performed By: #### CMP ####[facility] [address] [place], [place] [address]Dr.Yilan ChangEGFR-AF EFDETNKN33 mL/min/1.03a7Xbefymiiqi low>=60The [facility] CenterComment on above:Performed By: #### CMP ####[facility] [address] [place], [place] [address]Dr.Yilan ChangEGFR-NON AF TKYETURP16 mL/min/1.46o0Jajzpgsgbo low>=60The [facility] CenterComun[facility] of [facility] health on above: Performed By: #### CMP ####[facility] [address] [place], [place] [address]Dr.Yilan ChangGlobulin (S) [Mass/Vol]3.5 g/dLNormalThe [facility] CenterComment on above:Performed By: #### CMP ####[facility] [address] [id number].Yilan ChangGlucose [Mass/Vol]93 mg/zBCtrlth68-104Fpm [facility] CenterComment on above:Performed By: #### CMP ####[facility] [address] [id number].Yilan ChangPotassium [Moles/Vol]5.2 mmol/LCritically high3.4-5.0The [facility] CenterComment on above:Performed By: #### CMP ####[facility] [address] [id number].Yilan ChangProtein [Mass/Vol]6.9 g/dLNormal6.1-8.2The [facility] CenterComment on above:Performed By: #### CMP ####[facility] [address] [place], [place] [address]Dr.Yilan ChangSodium [Moles/Vol]142 mmol/PJjiddk707-963Rfa [facility] CenterComment on above:Performed By: #### CMP ####[facility] [address] [id number].Yilan ChangUrea nitrogen [Mass/Vol]24.0 mg/dLCritically high7.0-18.0The [facility] CenterComment on above:Performed By: #### CMP ####[facility] [address] [place], [place] [address]Dr.Yilan ChangUrea nitrogen/Creatinine [Mass ratio] 14.9 mg/mgNormalThe [facility] CenterComment on above:Performed By: #### CMP ####[facility] [address] [place], [place] [address]Dr. Davidson ChangUS CAROTID ART BILon [id number] CAROTID ART BILEXAMINATION: US CAROTID ART KWAME HISTORY: H/O: TIA [...] Electronically authenticated by: ABHI BECERRIL Date: 2021-08-12 13:09NoHigh[facility] AUTO DIFFon [id number] #0.1 103/ulNormal0.0-0.1The [facility] CenterComment on above:Performed By: #### A1C #### [facility] [address] [place] [address] Dr. Davidson SaundersBasophils/100 WBC (Bld)0.9 %Normal0.2-2.0[facility] Comment on above:Performed By: #### A1C #### [facility] [address] [place] [address] Dr. Davidson Root #0.3 103/ulNormal0.0-0.7The [facility] CenterComment on above: Performed By: #### A1C #### [facility] [address] [place] [address] Dr. Davidson Guillaumeosinophils/100 WBC (Bld)3.1 %Normal0.9-7.0The [facility] Comment on above:Performed By: #### A1C #### [facility] [address] [place] [address] Dr. Davidson Guillaumerythrocyte distribution width (RBC) [Ratio]12.8 %Smfhig01.0-15.0 The [facility] CenterComment on above:Performed By: #### A1C #### [facility] [address] [address] [address] Davidson SaundersHematocrit (Bld) [Volume fraction]32.8 %Critically low36.0-48.0 The [facility] CenterComment on above:Performed By: #### A1C #### [facility] [address] [address] [address] Davidson SaundresHemoglobin (Bld) [Mass/Vol]11.1 g/dLCritically low12.0-16.0The [facility] CenterComment on above:Performed By: #### A1C #### [facility] [address] [place] [address] Dr. Davidson SaundersIG #0.06 10e3/ulCritically high0.00-0.03The [facility] Comment on above:Performed By: #### A1C #### [facility] [address] [place] [address] Dr. Davidson SaundersIG %0.5 %Normal0.0-0.5The [facility] CenterComment on above: Performed By: #### A1C #### [facility] [address] [address] [address] Davidson Alan #2.6 103/ulNormal1.2-3.8The [facility] CenterComment on above:Performed By: #### A1C #### [facility] [address] [place] [address] Dr. Davidson Liumphocytes/100 WBC (Bld)23.6 %Ahecvu35.5-60.0The [facility] CenterComment on above:Performed By: #### A1C #### [facility] [address] [place] [address] Dr. Davidson SaundersMANUAL DIFF REQNONormalThe [facility] CenterComment on above: Performed By: #### A1C #### [facility] [address] [place] [address] Dr. Davidson Purvis (RBC) [Entitic mass]29.2 xjNnlufw75.7-34.0The [facility] CenterComment on above:Performed By: #### A1C #### [facility] [address] [address] [address] Davidson HernandezHC (RBC) [Mass/Vol]33.8 g/iGGxblkn88.9-35.2The [facility] CenterComment on above:Performed By: #### A1C #### [facility] [address] [address] [address] Davidson HernandezV (RBC) [Entitic vol]86.3 qBMmdwwy81.0-99.0The [facility] CenterComment on above:Performed By: #### A1C #### [facility] [address] [place] [address] Dr. Davidson Martin #0.9 103/ulCritically high0.3-0.8The [facility] Comment on above:Performed By: #### A1C #### [facility] [address] [place] [address] Dr. Davidson Cooperocytes/100 WBC (Bld)7.9 %Normal1.7-12.0[facility] Comment on above:Performed By: #### A1C #### [facility] [address] [place] [address] Dr. Davidson Pedroza #7.1 103/ulCritically high1.4-6.5ThMartin Memorial Hospital Comment on above:Performed By: #### A1C #### [facility] [address] [place] [address] Dr. Davidson Grahamutrophils/100 WBC (Bld)64.0 %Ldkryn05.0-75.0The [facility] CenterComment on above:Performed By: #### A1C #### [facility] [address] [place] [address] Dr. Davidson Salguerolet mean volume (Bld) [Entitic vol]8.7 fLCritically low 9.5-13.5The [facility] CenterComment on above:Performed By: #### A1C #### [facility] [address] [place] [address] Dr. Davidson SaundersPLT312 103/qaIvecke325-579Zrw Gustavo HospitalComment on above: Performed By: #### A1C #### [facility] [address] [address] [address] Davidson SaundersRBC3.80 106/ulCritically low4.20-5.40The [facility] CenterComment on above:Performed By: #### A1C #### [facility] [address] [address] [address] Davidson SaundersWBC11.1 103/ulCritically high4.0-11.0The [facility] CenterComment on above:Performed By: #### A1C #### [facility] [address] [address] [address] Davidson SaundersCT STROKE HEAD WOon 17-07-8445JT STROKE HEAD WOEXAMINATION: CT STROKE HEAD WO HISTORY: Dizziness COMPARISON: [...] Critical results were called by Dr. Martha Junior to BRANT Peters At 08/11/2021 4:36 PM EDT. Electronically authenticated by: MARTHA JUNIOR Date: 2021-08-11 16:43[facility] HospitalCULTURE URINEon [id number] URINECulture Observations: MODERATE GROWTH OF MIXED GENITAL ROSEANNA. NO POTENTIAL PATHOGENS SEEN.NormalThe [facility] CenterComment on above:Performed By: #### URCX #### [facility] [address] [place] [address] Dr. Davidson Rico-19 PCR (CVDTB)on 00-10-3513TAAK-CoV-2 (COVID-19) RNA SAE+probe Ql (Unsp spec)Not detectedNormalNOT DETECTEDMary [facility] Comment on above:Result Comment: This test is not yet approved or cleared by the [place] FDA. When there are no FDA-approved or cleared tests available, and other criteria are met, FDA can make tests available under an emergency access mechanism called an Emergency Use Authorization (EUA). The EUA for this test is supported by the [employer] of Health and Human Service's (HHS's) declaration that circumstances exist to justify the emergency use of in vitro diagnostics for the detection and/or diagnosis of the virus that causes COVID- 19. This EUA will remain in effect (meaning [...] of clinical signs and symptoms consistent with SARS-CoV-2.Performed By: #### CVDTBH ####[facility] [address] [address]. Davidson Valdivia URINE PROFILEon 68-96-8896Ruotgvkto Ql (U)NegativeNormalNEGATIVEMary [facility] Hospital Comment on above:Performed By: #### A1C #### [facility] [address] [place] [address] Dr. Davidson Beltre (U)CLEARNormalCLEARMary Rutan HospitalComment on above: Performed By: #### A1C #### [facility] [address] [address] [address] Davidson Holcomb (U)LT. YELLOWNormalYELLOWMary Rutan HospitalComment on above:Performed By: #### A1C #### [facility] [address] [place] [address] Dr. Davidson Bloom micrscopic examination will be performed if indicated. NormalThe [facility] CenterComment on above:Performed By: #### A1C #### [facility] [address] [address] [address] Davidson SaundersGlucose Ql (U)NegativeNormalNEGATIVEMary Rutan HospitalComment on above:Performed By: #### A1C #### [facility] [address] [address] [address] Davidson SaundersHemoglobin Ql (U)NegativermalNEGPeoples Hospital Comment on above:Performed By: #### A1C #### [facility] [address] [address] [address] Davidson SaundersKetones Ql (U)NegativeNormalNEGATIVEMary Rutan HospitalComment on above:Performed By: #### A1C #### [facility] [address] [address] [address] Davidson MaharajOCYTESSMALLAbnormalNEGATIVEMary Rutan HospitalComment on above:Performed By: #### A1C #### [facility] [address] [address] [address] Davidson SaundersNitrite Ql (U)NegativeNormalNEGATIVEMary Rutan HospitalComment on above:Performed By: #### A1C #### [facility] [address] [address] [address] Davidson SaunderspH (U)7.0 [pH]Normal5-9[facility] HospitalComment on above: Performed By: #### A1C #### [facility] [address] [address] [address] Davidson SaundersSPEC GRAVITY1.117Mirdah3.005-<=1.025The [facility] CenterComment on above:Performed By: #### A1C #### [facility] [address] [address] [address] Davidson SaundersUA PROTEINNegativeNormalNEGATIVE/ TRACEMary [facility]an Hospital Comment on above:Performed By: #### A1C #### [facility] [address] [address] [address] Davidson SaundersUR MICRO INDINDICATEDNoalThMartin Memorial HospitalComment on above: Performed By: #### A1C #### [facility] [address] [place] [address] Dr. Davidson Vegasbilinogen Qn (U)0.2 {Balaji'U}/dLNormal0.2 - 1.0The [facility] CenterComment on above:Performed By: #### A1C #### [facility] [address] [place] [address] Dr. Davidson SaundersLACTATE/LACTIC ACIDon 17-35-6965Pmauuur [Moles/Vol]1.3 mmol/L Normal0.7-2.0The [facility] CenterComment on above:Performed By: #### POCGLUC #### [facility] [address] [place] [address] Dr. Davidson Ferguson 14(COMP METB)on 50-13-3019Ctqzxcp [Mass/Vol]4.0 g/dLNormal 3.4-5.0The [facility] CenterComment on above:Performed By: #### POCGLUC #### [facility] [address] [place] [address] Dr. Davidson SaundersAlbumin/Globulin [Mass ratio]1.0 {ratio}NormalThe [facility] CenterComment on above:Performed By: #### POCGLUC #### [facility] [address] [place] [address] Dr. Davidson Dent [Catalytic activity/Vol]117 U/LCritically nkqm02-408Yaf [facility] CenterComment on above:Performed By: #### POCGLUC #### [facility] [address] [place] [address] Dr. Davidson Caraballo [Catalytic activity/Vol]26 U/DMoyevk52-90Dtj [facility] CenterComment on above:Performed By: #### POCGLUC #### [facility] [address] [place] [address] Dr. Davidson Sorto gap [Moles/Vol]12.5 mmol/LNormalThe [facility] Comment on above:Performed By: #### POCGLUC #### [facility] [address] [place] [address] Dr. Davidson Avalos [Catalytic activity/Vol]15 U/ZMexpyy31-62Cil [facility] CenterComment on above:Performed By: #### POCGLUC #### [facility] [address] [place] [address] Dr. Davidson SaundersBilirubin [Mass/Vol]0.3 mg/dLNormal0.2-1.3TAvita Health System Bucyrus [facility] Comment on above:Performed By: #### POCGLUC #### [facility] [address] [place] [address] Dr. Davidson SaundersCalcium [Mass/Vol]9.1 mg/dLNormal8.5-10.1The [facility] Comment on above:Performed By: #### POCGLUC #### [facility] [address] [place] [address] Dr. Davidson SaundersChloride [Moles/Vol]102 mmol/ITaohdr34-928Fbz [facility] Comment on above:Performed By: #### POCGLUC #### [facility] [address] [place] [address] Dr. Davidson SaundersCO2 [Moles/Vol]28.3 mmol/FFjpbko24.0-30.0[facility] Comment on above:Performed By: #### POCGLUC #### [facility] [address] [place] [address] Dr. Davidson SaundersCreatinine [Mass/Vol]1.95 mg/dLCritically high0.52-1.04[facility] HospitalComment on above:Performed By: #### POCGLUC #### [facility] [address] [place] [address] Dr. Davidson GuillaumeGFR-AF UINFNJRX76 mL/min/1.44a2Udhhdzpeyq low>=60The [facility] CenterComment on above:Performed By: #### POCGLUC #### [facility] [address] [place] [address] Dr. Davidson GuillaumeGFR-NON AF QQTUJPQL75 mL/min/1.54h5Idpnxxrgoe low>=60The [facility] CenterComment on above:Performed By: #### POCGLUC #### [facility] [address] [place] [address] Dr. Yilan ChangGlobulin (S) [Mass/Vol]3.9 g/dLNoMercy Health Kings Mills HospitalComment on above:Performed By: #### POCGLUC #### [facility] [address] [place] [address] Dr. Davidosn SaundersGlucose [Mass/Vol]83 mg/nDGluzsr46-809DueMary [facility] Comment on above:Performed By: #### POCGLUC #### [facility] [address] [place] [address] Dr. Davidson SaundersPotassium [Moles/Vol]4.8 mmol/LNormal3.4-5.0The [facility] Comment on above:Performed By: #### POCGLUC #### [facility] [address] [place] [address] Dr. Davidson SaundersProtein [Mass/Vol]7.9 g/dLNormal6.1-8.2[facility] Comment on above:Performed By: #### POCGLUC #### [facility] [address] [place] [address] Dr. Davidson SaundersSodium [Moles/Vol]138 mmol/NZdeajj911-776KutMary [facility]an Hospital Comment on above:Performed By: #### POCGLUC #### [facility] [address] [place] [address] Dr. Davidson SaundersUrea nitrogen [Mass/Vol]25.0 mg/dLCritically high7.0-18.0[facility] HospitalComment on above:Performed By: #### POCGLUC #### [facility] [address] [place] [address] Dr. Davidson SaundersUrea nitrogen/Creatinine [Mass ratio]12.8 mg/mgNoalThMartin Memorial HospitalComment on above:Performed By: #### POCGLUC #### [facility] [address] [place] [address] Dr. Davidson SaundersPROTIMEon 13-78-8701GDF Coag (PPP) [Relative time]0.95 {INR} NormalThe [facility] CenterComment on above:Performed By: #### POCGLUC #### [facility] [address] [place] [address] Dr. Davidson Batres [facility]carawas HospitalComment on above:Result Comment: DESIRED INR: 2.0 - 3.0 CONDITIONS NOT LISTED BELOW 2.5 - 3.5 FOR PROSTHETIC HEART VALVE REPLACEMENT 2.5 - 3.5 RECURRENT THROMBOSIS Performed By: #### POCGLUC #### [facility] [address] [place] [address] Dr. Davidson Clancy Coag (PPP) [Time]10.3 sNormal9.0-11.6The [facility] Comment on above:Performed By: #### POCGLUC #### [facility] [address] [place] [address] Dr. Davidson Krishna 28-38-6536rAVK Coag (Bld) [Time]24.8 wXymmim06.3-36.2[facility] HospitalComment on above:Performed By: #### POCGLUC #### [facility] [address] [place] [address] Dr. Davidson Levi, HIGH SENSITIVITYon 57-42-6612ZYSXUH26.1 pg/mLNormal 4.0-35.5ThMartin Memorial HospitalComment on above:Result Comment: CUT-OFF POINTS HAVE BEEN ESTABLISHED BASED ON THE FOURTH UNIVERSAL DEFINITIONS OF MYOCARDIAL INFARCTION. THE UPPER REFERENCE LIMIT (URL) OF TROPONIN, DEFINED THE 99TH PERCENTILE OF cTnI DISTRIBUTION IN A REFERENCE POPULATION, HAS BEEN CONFIRMED THE DECISION THRESHOLD FOR [place] DIAGNOSIS.Performed By: #### POCGLUC #### [facility] [address] [place] [address] Dr. Davidson Dodson 24-97-4506FJJ4.082 uIU/mLCritically low0.470-4.680The [facility] CenterComment on above:Performed By: #### TSH #### [facility] [address] [place] [address] Dr. Davidson Garner Kettering HealthComment on above: Result Comment: <0.34 UIU/ml HYPERTHYROID 0.34-5.60 UIU/ml EUTHYROID >5.60 UIU/ml HYPOTHYROIDPerformed By: #### TSH #### [facility] [address] [address] [address] Davidson Rodriguez MICROSCOPIC ONLYon 49-29-9563QMFHALAQSLDC SEENNormalNONE SEENWayne HealthCare Main [facility] on above:Performed By: #### A1C #### [facility] [address] [address] [address] Davidson Bridges identified Cx Nom (U)INDICATEDNoalThMartin Memorial HospitalComment on above:Performed By: #### A1C #### [facility] [address] [address] [address] Davidson Delvalle SEENNormalNONE SEENWayne HealthCare Main Campus on above:Performed By: #### A1C #### [facility] [address] [place] [address] Dr. Davidson SaundersCrystals LM Nom (Urine sed)NONE SEENNormalNONE SEENMary Rutan HospitalComuniversity of michigan health on above:Performed By: #### A1C #### [facility] [address] [place] [address] Dr. Cedeño ChangEpithelial cells LM Ql (Urine sed)FEWAbnormalNONE SEEN /RAREThe Memorial Hospital on above:Performed By: #### A1C #### [facility] [address] [place] [address] Dr. Davidson SaundersMUCOUSNONE SEENNormalNONE SEENWayne HealthCare Main Campus on above:Performed By: #### A1C #### [facility] [address] [place] [address] Dr. Davidson SaundersRBCNONE SEENAbnormal0-2[facility] on above: Performed By: #### A1C #### [facility] [address] [place] [address] Dr. Davidson SaundersWBC2-5AbnormalNONE SEENWayne HealthCare Main Campus on above: Performed By: #### A1C #### [facility] [address] [place] [address] Dr. Davidson SaundersXR CHEST 1 Von 73-42-9724NQ CHEST 1 VEXAMINATION: XR CHEST 1 V HISTORY: Dizziness COMPARISON: 02/17/2021 TECHNIQUE: [...] Electronically authenticated by: ABHI BECERRIL Date: 2021-08-11 16:39[facility] CenterCREENING MAMMOGRAM W/ALEX, BILATERAL*on [id number] MAMMOGRAM W/ALEX, BILATERAL*COMPARISON: Dating back to November 18, 2011 TECHNIQUE: [...] VERY IMPORTANT TO YOUR HEALTH. THE CURRENT [employer] [employer] GUIDELINES RECOMMENDS ANNUAL MAMMOGRAPHY BEGINNING AT AGE 40. THIS FACILITY USES A REMINDER SYSTEM TO ENSURE ALL PATIENTS RECEIVE REMINDER NOTIFICATIONS AT THE APPROPRIATE TIME BASED ON THE RECOMMENDATIONS OF THIS EXAM. Report reported and signed by Shant Altman on 05/27/2021 0934MerlineCorewell Health Zeeland Hospitalcoco Johnson Memorial HospitalXR Bone Density (DEXA)on 45-17-7400PO Bone Density (DEXA) EXAM: DUAL FEMUR BONE DENSITY FINDINGS: FnvnicLHWDfcsl-JikfgZqj-Wpxygxo Total(g/cm2)(%)T-Score(%)Z-Score Mean0.45348 -1.4110 0.6 Impression: The mean BMD and [...] age. EXAM: AP LUMBAR BONE DENSITY FINDINGS: BmkqvcZYOOllbb-CrghmOmx-Ntfmvnq Total(g/cm2)(%)T-Score(%)Z-Score L1-L41.355098 1.00205.1 Impression: The mean BMD and corresponding T-score [...] age. Report reported and signed by Shant Altmna on 05/26/2021 1530NormalNortpage hospitaln [facility] SpecialistAPTTon 79-08-8634nNWN Coag (Bld) [Time]37.2 sHigh 20.5-30.5[facility] Medical CenterComment on above:Performed By: #### CDP, PFA, CP, GLYHGB #### [facility] [address] [id number] Baseball Pitcher: Shalom Barahona Coag (Bld) [Time]37.2 sHigercy Health- [place], KYBasic Metabolic Panelon 35-54-1715Dftih gap [Moles/Vol]11 mmol/L9 - 17 mmol/LMercy Health- [place], KYBun/Cre RatioNOT REPORTEDMercy Health- [place], KYCalcium [Mass/Vol]8.4 mg/dLLow8.6 - 10.4 mg/dLMercy Health- [place], KYChloride [Moles/Vol] 104 mmol/L98 - 107 mmol/LMercy Health- [place], KYCO2 [Moles/Vol]26 mmol/L20 - 31 mmol/LMercy Health- [place], KYCreatinine [Mass/Vol]1.21 mg/dLHigh0.5 - 0.9 mg/dL [facility]- [place], KYGFR Toakrvuf63 mL/minLow>60[facility]- [place], KYGFR CommentMer Health- [place], [place]GFR Non- Oonlijxw55 mL/minLow>60[facility]- [place], KYGFR StagingNOT REPORTEDMercy Health- [place], KYGlucose [Mass/Vol]75 mg/dL70 - 99 mg/dLMercy Health- [place], KYInterpretation and review of laboratory results AbnormalMercy Health- [place], KYPotassium [Moles/Vol]4.1 mmol/L3.7 - 5.3 mmol/LMercy Health- [place], KYSodium [Moles/Vol]141 mmol/L135 - 144 mmol/LMercy Health- [place], [place] Urea nitrogen [Mass/Vol]26 mg/dLHigh8 - 23 mg/dLMercy Health- [place], KYBasic Metabolic Profon 07-24-2019(cont.)NormalAdena Fayette Medical CenterComment on above:Result Comment: Average GFR for 70 or more years old: 75 mL/min/1.73sq m Chronic Kidney Disease: <60 mL/min/1.73sq m Kidney failure: <15 mL/min/1.73sq m eGFR calculated using average adult body mass. Additional eGFR calculator available at: http://www.[employer]vantage/multiple_crcl_2012.htmPerformed By: #### CDP, PFA, CP, GLYHGB #### [facility] [address] [place] [address] Baseball Pitcher: Savage Jacob MDAnion gap [Moles/Vol]11 mmol/LNormal9-17[facility] Medical CenterComment on above:Performed By: #### CDP, PFA, CP, GLYHGB #### [facility] [address] [place] [address] Baseball Pitcher: CASEY Barahonaalcium [Mass/Vol]8.4 mg/dLLow8.6-10.4[facility] Medical CenterComment on above:Performed By: #### CDP, PFA, CP, GLYHGB #### [facility] [address] [place] [address] Baseball Pitcher: Savage Jacob MDChloride [Moles/Vol]104 mmol/RJjlegt77-280EpnsmAdena Fayette Medical CenterComment on above:Performed By: #### CDP, PFA, CP, GLYHGB #### [facility] [address] [place] [address] Baseball Pitcher: Savage Jacob MDCO2 [Moles/Vol]26 mmol/FBfwhvk29-73CymkhAdena Fayette Medical CenterComment on above:Performed By: #### CDP, PFA, CP, GLYHGB #### [employer] [facility] [address] [place] [address] Baseball Pitcher: Savage Jacob MDCreatinine [Mass/Vol]1.21 mg/dLHigh0.50-0.90 [facility] CenterComment on above:Performed By: #### CDP, PFA, CP, GLYHGB #### [facility] [address] [place] [address] Baseball Pitcher: Savage Jacob MDGFR, Amer53 mL/minLow>60[facility] CenterComment on above:Performed By: #### CDP, PFA, CP, GLYHGB #### [facility] [address] [place] [address] Baseball Pitcher: Savage Jacob MDGFR,non Amer44 mL/minLow>60[facility] CenterComment on above:Performed By: #### CDP, PFA, CP, GLYHGB #### [address] [address] Baseball Pitcher: Savage Jacob MDGlucose [Mass/Vol]75 mg/iGXdayny13-33YnkvcGranada Hills Community HospitalComment on above:Performed By: #### CDP, PFA, CP, GLYHGB #### [facility] [address] [place] [address] Baseball Pitcher: HALEY Barahonaotassium [Moles/Vol]4.1 mmol/LNormal3.7-5.3 [facility] CenterComment on above:Performed By: #### CDP, PFA, CP, GLYHGB #### [facility] [address] [place] [address] Baseball Pitcher: Savage Jacob MDSodium [Moles/Vol]141 mmol/TZntkni848-593RmcmtAdena Fayette Medical CenterComment on above:Performed By: #### CDP, PFA, CP, GLYHGB #### [facility] [address] [place] [address] Baseball Pitcher: Savage Jacob MDUrea nitrogen [Mass/Vol]26 mg/dLHigh8-23[facility] CenterComment on above:Performed By: #### CDP, PFA, CP, GLYHGB #### [facility] [address] [place] [address] Baseball Pitcher: FELICITY Barahona/CRE CyrusOT REPORTEDNormal9-20[facility] CenterComment on above:Performed By: #### CDP, PFA, CP, GLYHGB #### [facility] [address] [place] [address] Baseball Pitcher: ZANA Barahonataging:NOT REPORTEDNormalAdena Fayette Medical CenterComment on above:Performed By: #### CDP, PFA, CP, GLYHGB #### [facility] [address] [place] [address] Baseball Pitcher: Ulysses Barahona 63-64-8331Ggtscnuyisu distribution width (RBC) [Ratio]15.4 %High11.8-14.4[facility] Medical CenterComment on above:Performed By: #### CDP, PFA, CP, GLYHGB #### [facility] [address] [place] [address] Baseball Pitcher: Savage Jacob MDHematocrit (Bld) [Volume fraction]29.2 %Low 36.3-47.1MKeck Hospital of USCComment on above:Performed By: #### CDP, PFA, CP, GLYHGB #### [facility] [address] [place] [address] Baseball Pitcher: Savage Jacob MDHemoglobin (Bld) [Mass/Vol]8.4 g/dLLow11.9-15.1 [facility] CenterComment on above:Performed By: #### CDP, PFA, CP, GLYHGB #### [facility] [address] [place] [address] Baseball Pitcher: ALISSA BarahonaCH (RBC) [Entitic mass]28.8 urXpppmy47.2-33.5 [facility] CenterComment on above:Performed By: #### CDP, PFA, CP, GLYHGB #### [address] [address] Baseball Pitcher: JAIME BarahonaC (RBC) [Mass/Vol]28.8 g/zTTrblxv85.4-34.8 [facility] CenterComment on above:Performed By: #### CDP, PFA, CP, GLYHGB #### [address] [address] Baseball Pitcher: ALISSA BarahonaCV (RBC) [Entitic vol]100.0 lUAakych23.6-102.9 [facility] CenterComment on above:Performed By: #### CDP, PFA, CP, GLYHGB #### [address] [address] Baseball Pitcher: ILANA Barahona Automated0.0 per 100 WBCNormal0.0[facility] Medical CenterComment on above:Performed By: #### CDP, PFA, CP, GLYHGB #### [facility] [address] [place] [address] Baseball Pitcher: Daniel Barahona mean volume (Bld) [Entitic vol]9.7 fL Normal8.1-13.5[facility] Medical CenterComment on above:Performed By: #### CDP, PFA, CP, GLYHGB #### [facility] [address] [place] [address] Baseball Pitcher: Rico Barahona (Bld) [#/Vol]207 10*3/hJTmurue152-987 [facility] CenterComment on above:Performed By: #### CDP, PFA, CP, GLYHGB #### [facility] [address] [place] [id number] Baseball Pitcher: ISABELLE BarahonaBC (Bld) [#/Vol]2.92 10*6/uLLow3.95-5.11[facility] Medical CenterComment on above:Performed By: #### CDP, PFA, CP, GLYHGB #### [employer] [address] [place], [place] [phone] Baseball Pitcher: Savage Jacob MDWBC (Bld) [#/Vol]7.8 10*3/uLNormal3.5-11.3MKeck Hospital of USCComment on above:Performed By: #### CDP, PFA, CP, GLYHGB #### [facility] [address] [place], [place] [id number] Baseball Pitcher: Savage Jacob MDErythrocyte distribution width (RBC) [Ratio]15.4 %High11.8 - 14.4 %[facility], MNHematocrit (Bld) [Volume fraction]29.2 % Low36.3 - 47.1 %[facility], MNHemoglobin (Bld) [Mass/Vol]8.4 g/dLLow11.9 - 15.1 g/dLMercy Health Kings Mills Hospital, MNInterpretation and review of laboratory results AbnormalMercy Health Kings Mills Hospital, MNMCH (RBC) [Entitic mass]28.8 pg25.2 - 33.5 pgMercy Health Kings Mills Hospital, MNMCHC (RBC) [Mass/Vol]28.8 g/dL28.4 - 34.8 g/dLMercy Health Kings Mills Hospital, [place] MCV (RBC) [Entitic vol]100.0 fL82.6 - 102.9 fLMercy Health Kings Mills Hospital, MNPlatelet mean volume (Bld) [Entitic vol]9.7 fL8.1 - 13.5 fLUniversity Hospitals Ahuja Medical Center- [place], KYPlatelets (Bld) [#/Vol]207 10*3/uLMercy Health Kings [facility] Hospital, KYRBC (Bld) [#/Vol]2.92 10*6/uLLow3.95 - 5.11 m/[facility], KYWBC (Bld) [#/Vol]0.0 10*3/uL0.0 per 100 WBCUniversity Hospitals Ahuja Medical Center- [place], KYWBC (Bld) [#/Vol]7.8 10*3/uLDayton Children'S Hospital [place], KYEKG 12 Leadon 52-26-2496Zzxjky Cdiw41DAVIclcu Health- [place], KYP Lpys56msfnhfjYrioc Health- [place], KYP-R Uknimxai387 [facility] [place], KYQ-T Jzkzjjwx676 [facility] [place], [place] QRS Lyqbcrdf44 [facility]- [place], KYQTc Calculation (Bazett)414 [facility]- [place], KYR Pvxo97ucofygcVuflr Health- [place], KYT Exne51vijzyxeDlkli Health- [place], [place] Ventricular Psle83HHLSqife Health- [place], KYUniversity Hospitals [facility]hu[facility]- [place], KYDayton [facility] [place], KYMagnesiumon 48-13-6582Rmgesxlms [Mass/Vol]2.4 mg/dLNormal1.6-2.6Mbarberton citizens hospitaly Community Hospital Of San BernardinoComment on above:Performed By: #### CDP, PFA, CP, GLYHGB #### [employer] [address] [place], [place] [address] Baseball Pitcher: Savage Jacob MDMagnesium [Mass/Vol]2.4 mg/dL1.6 - 2.6 mg/dL [facility], KYOtheron [id number] and review of laboratory resultsAbnormalMercy Health [facility], MNPO Glucose Fingerstickon 40-68-5654GJB Umouvim187 mg/dL65 - 105 mg/dLMercy Health [facility], MNPOC Sxwyutu36 mg/dL65 - 105 mg/dLMercy Health Kings [facility], KYPTon [id number] Coag (PPP) [Relative time]3.0 {INR} NormalAdena Fayette Medical CenterComment on above:Result Comment: Therapeutic Range: Moderate Anticoagulant Intensity: INR = 2.0-3.0 High Anticoagulant Intensity: INR = 2.5-3.5Performed By: #### CDP, PFA, CP, GLYHGB #### [employer] [address] [place] [address] [id number] Baseball Pitcher: HALEY BarahonaT Coag (PPP) [Time]29.8 sHigh9.0-12.0Adena Fayette Medical CenterComment on above:Performed By: #### CDP, PFA, CP, GLYHGB #### [employer] [facility] [place], [place] [id number] Baseball Pitcher: Ric Barahonaime-INRon [id number] Coag (PPP) [Relative time]3.0 {INR}[facility], KYPT Coag (PPP) [Time]29.8 [facility], KYAPTTon [id number] Coag (Bld) [Time]67.2 sHigh20.5-30.5A[facility] Fayette Medical CenterComment on above:Performed By: #### CDP, PFA, CP, GLYHGB #### [employer] [address] [place] [address] [phone] Baseball Pitcher: Savage Jacob MDaPTT Coag (Bld) [Time]67.2 [facility], KYBasic Metab w/rfx MGon 07-23-2019(cont.)[facility] HospitalComment on above:Result Comment: Average GFR for 70 or more years old: 75 mL/min/1.73sq m Chronic Kidney Disease: <60 mL/min/1.73sq m Kidney failure: <15 mL/min/1.73sq m eGFR calculated using average adult body mass. Additional eGFR calculator available at: http://www.[employer].com/multiple_crcl_2012.htmPerformed By: #### CDP, PFA, CP, GLYHGB #### [employer] [facility] [place], [place] [id number] Baseball Pitcher: Chayito Barahona gap [Moles/Vol]12 mmol/LNormal9-17A[facility]ayette Medical CenterComment on above:Performed By: #### CDP, PFA, CP, GLYHGB #### [facility] [address] [place] [address] 79288 Baseball Pitcher: CASEY Barahonaalcium [Mass/Vol]8.9 mg/dLNormal8.6-10.4A[facility]ayette Medical CenterComment on above:Performed By: #### CDP, PFA, CP, GLYHGB #### [facility] [address] [place] [address]57 Baseball Pitcher: Savage Jacob MDChloride [Moles/Vol]104 mmol/NJygxnn03-387ZtgtdAdena Fayette Medical CenterComment on above:Performed By: #### CDP, PFA, CP, GLYHGB #### [facility] [address] [place] [address] 48969 Baseball Pitcher: Savage Jacob MDCO2 [Moles/Vol]27 mmol/HDsabna88-00XkgkvAdena Fayette Medical CenterComment on above:Performed By: #### CDP, PFA, CP, GLYHGB #### [address] [address] Baseball Pitcher: Savage Jacob MDCreatinine [Mass/Vol]1.28 mg/dLHigh0.50-0.90 [facility] Medical CenterComment on above:Performed By: #### CDP, PFA, CP, GLYHGB #### [facility] [address] [place] [address] 77263 Baseball Pitcher: SALLY Barahona, Amer50 mL/minLow>60A[facility] Medical CenterComment on above:Performed By: #### CDP, PFA, CP, GLYHGB #### [facility] [address] [place] [address] 16762 Baseball Pitcher: SALLY Barahona,non Amer41 mL/minLow>60[facility] Medical CenterComment on above:Performed By: #### CDP, PFA, CP, GLYHGB #### [facility] [address] [place] [address] 03955 Baseball Pitcher: Savage Jacob MDGlucose [Mass/Vol]95 mg/pHLlscac11-14CugthKeck Hospital of USCComment on above:Performed By: #### CDP, PFA, CP, GLYHGB #### [facility] [address] [place] [address] Baseball Pitcher: Savage Jacob, MDPotassium [Moles/Vol]3.8 mmol/LNormal3.7-5.3 [facility] Medical CenterComment on above:Performed By: #### CDP, PFA, CP, GLYHGB #### [facility] [address] [place] [address]007 Baseball Pitcher: Savage Jacob MDSodium [Moles/Vol]143 mmol/KVtkaym227-562MtnbhAdena Fayette Medical CenterComment on above:Performed By: #### CDP, PFA, CP, GLYHGB #### [facility] [address] [place] [address]202 Baseball Pitcher: Savage Jacob MDUrea nitrogen [Mass/Vol]33 mg/dLHigh8-23A[facility]ayette Medical CenterComment on above:Performed By: #### CDP, PFA, CP, GLYHGB #### [facility] [address] [place] [address] 03068 Baseball Pitcher: Savage Jacob MDBUN/CRE RatioNOT REPORTEDNormal9-20[facility] Medical CenterComment on above:Performed By: #### CDP, PFA, CP, GLYHGB #### [facility] [address] [place] [address] 40703 Baseball Pitcher: ZANA Barahonataging:NOT REPORTEDNormalAdena Fayette Medical CenterComment on above:Performed By: #### CDP, PFA, CP, GLYHGB #### [facility] [address] [place] [address] 17153 Baseball Pitcher: Savage Jacob MDGaylord Hospital Metabolic Panelon [id number] gap [Moles/Vol]14 mmol/L9 - 17 mmol/LMercy Health- [place], KYBun/Cre RatioNOT REPORTED [facility]- [place], KYCalcium [Mass/Vol]9.0 mg/dL8.6 - 10.4 mg/dLMercy Health- [place], KYChloride [Moles/Vol]104 mmol/L98 - 107 mmol/LMercy Health- [place], KYCO2 [Moles/Vol]26 mmol/L20 - 31 mmol/LMercy Health- [place], KYCreatinine [Mass/Vol]1.29 mg/dLHigh0.5 - 0.9 mg/dLMercy Health- [place], KYGFR Aahgdhcc96 mL/minLow>60 [facility] [place], KYGFR CommentMercy Health- [place], KYGFR Non- Kwgmjpmp40 mL/minLow>60[facility] [place], KYGFR StagingNOT REPORTEDMercy Health- [place], [place] Glucose [Mass/Vol]88 mg/dL70 - 99 mg/dLMercy Health- [place], KYInterpretation and review of laboratory resultsAbnormalMercy Health- [place], KYPotassium [Moles/Vol]4.0 mmol/L3.7 - 5.3 mmol/LMercy Health- [place], KYSodium [Moles/Vol]144 mmol/L135 - 144 mmol/LMercy Health- [place], KYUrea nitrogen [Mass/Vol]34 mg/dLHigh8 - 23 mg/dLMercy Health- [place], KYBauofl health - [facility] Metabolic Panel w/ Reflex to MGon [id number] gap [Moles/Vol]12 mmol/L9 - 17 mmol/LMercy Health- [place], KYBun/Cre RatioNOT REPORTED [facility] [place], KYCalcium [Mass/Vol]8.9 mg/dL8.6 - 10.4 mg/dLMercy Health- [place], KYChloride [Moles/Vol]104 mmol/L98 - 107 mmol/LMercy Health- [place], KYCO2 [Moles/Vol]27 mmol/L20 - 31 mmol/LMercy Health- [place], KYCreatinine [Mass/Vol]1.28 mg/dLHigh0.5 - 0.9 mg/dLMer[facility], KYGFR Isuifato65 mL/minLow>60 [facility], KYGFR CommentMercy Health [facility], KYGFR Non- Zygvtddc12 mL/minLow>60[facility], KYGFR StagingNOT REPORTEDMercy Health [facility], [place] Glucose [Mass/Vol]95 mg/dL70 - 99 mg/dLMercy Health [facility], KYInterpretation and review of laboratory resultsAbnormalMer[facility] Health [facility], KYPotassium [Moles/Vol]3.8 mmol/L3.7 - 5.3 mmol/LMMercy Health [facility], KYSodium [Moles/Vol]143 mmol/L135 - 144 mmol/[facility], KYUrea nitrogen [Mass/Vol]33 mg/dLHigh8 - 23 mg/dLMercy Health [facility], KYBasic Metabolic Profon 07-23-2019(cont.)[facility] HospitalComment on above:Result Comment: Average GFR for 70 or more years old: 75 mL/min/1.73sq m Chronic Kidney Disease: <60 mL/min/1.73sq m Kidney failure: <15 mL/min/1.73sq m eGFR calculated using average adult body mass. Additional eGFR calculator available at: http://www.[employer].com/multiple_crcl_2012.htmPerformed By: #### CDP, PFA, CP, GLYHGB #### [employer] [address] [place], [place] [id number] Baseball Pitcher: Chayito Barahona gap [Moles/Vol]14 mmol/LNormal9-17A[facility]ayette Medical CenterComment on above:Performed By: #### CDP, PFA, CP, GLYHGB #### [employer] [address] [place], [place] [phone] Baseball Pitcher: CASEY Barahonaalcium [Mass/Vol]9.0 mg/dLNormal8.6-10.4A[facility] Medical CenterComment on above:Performed By: #### CDP, PFA, CP, GLYHGB #### [employer] [address] [place] [address]791 Baseball Pitcher: CASEY Barahonahloride [Moles/Vol]104 mmol/DUioqui81-817YkccnAdena Fayette Medical CenterComment on above:Performed By: #### CDP, PFA, CP, GLYHGB #### [facility] [address] [place] [address] 35559 Baseball Pitcher: Savage Jacob MDCO2 [Moles/Vol]26 mmol/LFqklqm91-83LbfqnAdena Fayette Medical CenterComment on above:Performed By: #### CDP, PFA, CP, GLYHGB #### [facility] [address] [place] [address] 22887 Baseball Pitcher: CASEY Barahonareatinine [Mass/Vol]1.29 mg/dLHigh0.50-0.90 [facility] Medical CenterComment on above:Performed By: #### CDP, PFA, CP, GLYHGB #### [facility] [address] [place] [address] 02169 Baseball Pitcher: Savage Jacob MDGFR, Amer50 mL/minLow>60[facility] Medical CenterComment on above:Performed By: #### CDP, PFA, CP, GLYHGB #### [facility] [address] [place] [address]29 Baseball Pitcher: Savage Jacob MDGFR,non Amer41 mL/minLow>60[facility] Medical CenterComment on above:Performed By: #### CDP, PFA, CP, GLYHGB #### [facility] [address] [place] [address] 89193 Baseball Pitcher: Savage Jacob MDGlucose [Mass/Vol]88 mg/mPOnvhqo82-95EghqfKeck Hospital of USCComment on above:Performed By: #### CDP, PFA, CP, GLYHGB #### [facility] [address] [place] [address] 58699 Baseball Pitcher: HALEY Barahonaotassium [Moles/Vol]4.0 mmol/LNormal3.7-5.3 [facility] CenterComment on above:Performed By: #### CDP, PFA, CP, GLYHGB #### [facility] [address] [place] [address] 92467 Baseball Pitcher: ZANA Barahonaodium [Moles/Vol]144 mmol/NOtdqiy136-207MihlqAdena Fayette Medical CenterComment on above:Performed By: #### CDP, PFA, CP, GLYHGB #### [address] [address] Baseball Pitcher: Sherie Barahona nitrogen [Mass/Vol]34 mg/dLHigh8-23A[facility] Medical CenterComment on above:Performed By: #### CDP, PFA, CP, GLYHGB #### [address] [address] Baseball Pitcher: FELICITY Barahona/CRE RatioNOT REPORTEDNormal9-20[facility] Medical CenterComment on above:Performed By: #### CDP, PFA, CP, GLYHGB #### [facility] [address] [place] [address] 27207 Baseball Pitcher: ZANA Barahonataging:NOT REPORTEDNormalAdena Fayette Medical CenterComment on above:Performed By: #### CDP, PFA, CP, GLYHGB #### [facility] [address] [place] [address] 63358 Baseball Pitcher: Ulysses Barahona [id number] distribution width (RBC) [Ratio]15.6 %High11.8-14.4[facility] Medical CenterComment on above:Performed By: #### CDP, PFA, CP, GLYHGB #### [facility] [address] [place] [address] 30324 Baseball Pitcher: Savage Jacob MDHematocrit (Bld) [Volume fraction]31.2 %Low 36.3-47.1MKeck Hospital of USCComment on above:Performed By: #### CDP, PFA, CP, GLYHGB #### [address] [id number] Baseball Pitcher: Savage Jacob MDHemoglobin (Bld) [Mass/Vol]9.1 g/dLLow11.9-15.1 [facility] CenterComment on above:Performed By: #### CDP, PFA, CP, GLYHGB #### [place] [address] Baseball Pitcher: ALISSA BarahonaCH (RBC) [Entitic mass]28.4 clCuaybu13.2-33.5 [facility] CenterComment on above:Performed By: #### CDP, PFA, CP, GLYHGB #### [place] [address] Baseball Pitcher: JAIME BarahonaC (RBC) [Mass/Vol]29.2 g/qIAcwycx83.4-34.8 [facility] CenterComment on above:Performed By: #### CDP, PFA, CP, GLYHGB #### [place] [address] Baseball Pitcher: ALISSA BarahonaCV (RBC) [Entitic vol]97.5 tFCtsiru58.6-102.9 [facility] CenterComment on above:Performed By: #### CDP, PFA, CP, GLYHGB #### [address] [address] Baseball Pitcher: Savage Jacob MDNRBC Automated0.0 per 100 WBCNormal0.0A[facility]ayette Medical CenterComment on above:Performed By: #### CDP, PFA, CP, GLYHGB #### [address] [address] Baseball Pitcher: Daniel Barahona mean volume (Bld) [Entitic vol]9.9 fL Normal8.1-13.5[facility] Medical CenterComment on above:Performed By: #### CDP, PFA, CP, GLYHGB #### [address] [address] Baseball Pitcher: Taylor Barahonatejimbo (Bld) [#/Vol]276 10*3/sAZlgynp572-099 [facility] CenterComment on above:Performed By: #### CDP, PFA, CP, GLYHGB #### [address] [address] Baseball Pitcher: ISABELLE BarahonaBC (Bld) [#/Vol]3.20 10*6/uLLow3.95-5.11A[facility] Medical CenterComment on above:Performed By: #### CDP, PFA, CP, GLYHGB #### [address] [address] Baseball Pitcher: Savage Jacob MDWBC (Bld) [#/Vol]10.8 10*3/uLNormal3.5-11.3MKeck Hospital of USCComment on above:Performed By: #### CDP, PFA, CP, GLYHGB #### [facility] [address] [place] [address]92 Baseball Pitcher: Savage Jacob MDErythrocyte distribution width (RBC) [Ratio]15.6 %High11.8 - 14.4 %[facility], KYHematocrit (Bld) [Volume fraction]31.2 % Low36.3 - 47.1 %[facility], KYHemoglobin (Bld) [Mass/Vol]9.1 g/dLLow11.9 - 15.1 g/dLMercy Health [facility], KYInterpretation and review of laboratory results AbnormalMer[facility] Health [facility], MNMCH (RBC) [Entitic mass]28.4 pg25.2 - 33.5 pgMercy Health Kings [facility] Hospital, MNMCHC (RBC) [Mass/Vol]29.2 g/dL28.4 - 34.8 g/dLQueen [place], [place] MCV (RBC) [Entitic vol]97.5 fL82.6 - 102.9 fLMercy Health Kings [facility] Hospital, MNPlatelet mean volume (Bld) [Entitic vol]9.9 fL8.1 - 13.5 fLMercy Health Kings [facility], MNPlatelets (Bld) [#/Vol]276 10*3/uLMercy Health [facility], MNRBC (Bld) [#/Vol]3.20 10*6/uLLow3.95 - 5.11 m/[facility], MNWBC (Bld) [#/Vol]0.0 10*3/uL0.0 per 100 WBCMercy Health Kings Mills Hospital, MNWBC (Bld) [#/Vol]10.8 10*3/uLMercy Health [facility], MNMagnesiumon 22-50-6892Osgvrcmlt [Mass/Vol]2.6 mg/dLNormal1.6-2.6Mer[facility] Community Hospital Of San BernardinoComment on above:Performed By: #### CDP, PFA, CP, GLYHGB #### [employer] [facility] [place] [address] Baseball Pitcher: Savage Jacob MDMagnesium [Mass/Vol]2.6 mg/dL1.6 - 2.6 mg/dL [facility], KYOtheron 01-99-5879Ulddwoclgmdccp and review of laboratory resultsAbnormWood County Hospital Glucose Fingerstickon 07-23-2019 Interpretation and review of laboratory resultsAbnormWood County Hospital Owyeuwj635 mg/cINcvt50 - 105 mg/dLMercy Health [facility], MNInterpretation and review of laboratory resultsAbnormWood County Hospital Tkytaxc102 mg/nLEndp76 - 105 mg/dLMercy Health [facility], KYInterpretation and review of laboratory results AbnormalMercy Health [facility], MNPO Nywvadb193 mg/iCZcke20 - 105 mg/dLMercy Health [facility], KYInterpretation and review of laboratory resultsAbnormalMer[facility] Health [facility], MNPO Cxjplrn696 mg/hNTnrk14 - 105 mg/dLMercy Health [facility], KYPTon 17-26-2760APM Coag (PPP) [Relative time]1.3 {INR}NormalAdena Fayette Medical CenterComment on above:Result Comment: Therapeutic Range: Moderate Anticoagulant Intensity: INR = 2.0-3.0 High Anticoagulant Intensity: INR = 2.5-3.5Performed By: #### CDP, PFA, CP, GLYHGB #### [employer] [address] [place] [address] [phone] Baseball Pitcher: RIGO Barahona Coag (PPP) [Time]13.6 sHigh9.0-12.0[facility] Medical CenterComment on above:Performed By: #### CDP, PFA, CP, GLYHGB #### [employer] [address] [place] [address] [phone] Baseball Pitcher: Reinaldo Barahona [phone] [Mass/Vol]2.9 mg/dL2.6 - 4.5 mg/dLMercy Health Kings [facility], KYPhosphorus, Inorg.on 07-23-2019 Phosphorus, Inorg.2.9 mg/dLNormal2.6-4.5[facility] Medical CenterComment on above:Performed By: #### CDP, PFA, CP, GLYHGB #### [employer] [address] [place] [address] Baseball Pitcher: Christo Barahona-INRon 22-55-5981LGR Coag (PPP) [Relative time]1.3 {INR}[facility], KYPT Coag (PPP) [Time]13.6 sHigAshtabula County Medical Center, KYAPTTon 61-89-8781gPQD Coag (Bld) [Time]59.4 sHigh20.5-30.5[facility] Medical CenterComment on above:Performed By: #### CDP, PFA, CP, GLYHGB #### [employer] [address] [phone] Baseball Pitcher: Shalom Barahona Coag (Bld) [Time]59.4 [facility], KYBasic Metabolic Panelon 87-67-4237Ogfqc gap [Moles/Vol]14 mmol/L9 - 17 mmol/LMDoctors Hospital [place], KYBun/Cre RatioNOT REPORTEDMercy Health [facility], KYCalcium [Mass/Vol]8.9 mg/dL8.6 - 10.4 mg/dLMercy Health Kings [facility], KYChloride [Moles/Vol]106 mmol/L98 - 107 mmol/LMUniversity Hospitals Geneva [facility]- [place], KYCO2 [Moles/Vol]24 mmol/L20 - 31 mmol/L [facility], KYCreatinine [Mass/Vol]1.49 mg/dLHigh0.5 - 0.9 mg/dLMercy Health [facility], KYGFR Rztpejow08 mL/minLow>60[facility], KYGFR Comment [facility], KYGFR Non- Erfjgdoe77 mL/minLow>60[facility], [place] GFR StagingNOT REPORTEDMercy Health [facility], KYGlucose [Mass/Vol]105 mg/zPNbdi59 - 99 mg/dLMercy Health [facility], KYPotassium [Moles/Vol]3.7 mmol/L3.7 - 5.3 mmol/[facility] [place], KYSodium [Moles/Vol]144 mmol/L135 - 144 mmol/LMDoctors Hospital [place], [place] Urea nitrogen [Mass/Vol]45 mg/dLHigh8 - 23 mg/dLMercy Health [facility], KYBasic Metabolic Profon 07-22-2019(cont.)[facility] HospitalComment on above:Result Comment: Average GFR for 70 or more years old: 75 mL/min/1.73sq m Chronic Kidney Disease: <60 mL/min/1.73sq m Kidney failure: <15 mL/min/1.73sq m eGFR calculated using average adult body mass. Additional eGFR calculator available at: http://www.[employer].com/multiple_crcl_2012.htmPerformed By: #### CDP, PFA, CP, GLYHGB #### [facility] [address] [place] [address]166 Baseball Pitcher: Savage Jacob MDAnion gap [Moles/Vol]14 mmol/LNormal9-17[facility] CenterComment on above:Performed By: #### CDP, PFA, CP, GLYHGB #### [facility] [address] [place] [address]90 Baseball Pitcher: Savage Jacob MDCalcium [Mass/Vol]8.9 mg/dLNormal8.6-10.4[facility] Medical CenterComment on above:Performed By: #### CDP, PFA, CP, GLYHGB #### [facility] [address] [place] [address] Baseball Pitcher: Savage Jacob MDChloride [Moles/Vol]106 mmol/BDljxjd84-407LhmgzAdena Fayette Medical CenterComment on above:Performed By: #### CDP, PFA, CP, GLYHGB #### [facility] [address] [place] [address] Baseball Pitcher: Savage Jacob MDCO2 [Moles/Vol]24 mmol/TAmdvlw45-93JbxkeAdena Fayette Medical CenterComment on above:Performed By: #### CDP, PFA, CP, GLYHGB #### [facility] [address] [place] [address] 73706 Baseball Pitcher: Savage Jacob MDCreatinine [Mass/Vol]1.49 mg/dLHigh0.50-0.90 [facility] CenterComment on above:Performed By: #### CDP, PFA, CP, GLYHGB #### [facility] [address] [place] [address]383 Baseball Pitcher: Savage Jacob MDGFR, Amer42 mL/minLow>60[facility] CenterComment on above:Performed By: #### CDP, PFA, CP, GLYHGB #### [facility] [address] [place] [address] Baseball Pitcher: Savage Jacob MDGFR,non Amer35 mL/minLow>60[facility] CenterComment on above:Performed By: #### CDP, PFA, CP, GLYHGB #### [facility] [address] [place] [address]679 Baseball Pitcher: Savage Jacob MDGlucose [Mass/Vol]105 mg/lGQiza57-77UkydoKeck Hospital of USCComment on above:Performed By: #### CDP, PFA, CP, GLYHGB #### [address] [address] Baseball Pitcher: HALEY Barahonaotassium [Moles/Vol]3.7 mmol/LNormal3.7-5.3 [facility] CenterComment on above:Performed By: #### CDP, PFA, CP, GLYHGB #### [address] [address] Baseball Pitcher: ZANA Barahonaodium [Moles/Vol]144 mmol/BPhuzdi075-180LfjuxAdena Fayette Medical CenterComment on above:Performed By: #### CDP, PFA, CP, GLYHGB #### [facility] [address] [place] [address]34 Baseball Pitcher: Savage Jacob MDUrea nitrogen [Mass/Vol]45 mg/dLHigh8-23[facility] CenterComment on above:Performed By: #### CDP, PFA, CP, GLYHGB #### [facility] [address] [place] [address]1561 Baseball Pitcher: Savage Jacob MDBUN/CRE RatioNOT REPORTEDNormal9-20[facility] CenterComment on above:Performed By: #### CDP, PFA, CP, GLYHGB #### [facility] [address] [place] [address]41 Baseball Pitcher: ZANA Barahonataging:NOT REPORTEDNormalAdena Fayette Medical CenterComment on above:Performed By: #### CDP, PFA, CP, GLYHGB #### [facility] [address] [place] [address]646 Baseball Pitcher: CASEY Barahonastarla 94-17-2090Tocirootgim distribution width (RBC) [Ratio]15.5 %High11.8-14.4[facility] Medical CenterComment on above:Performed By: #### CDP, PFA, CP, GLYHGB #### [facility] [address] [place] [address] Baseball Pitcher: Savage Jacob MDHematocrit (Bld) [Volume fraction]30.6 %Low 36.3-47.1MKeck Hospital of USCComment on above:Performed By: #### CDP, PFA, CP, GLYHGB #### [facility] [address] [place] [address]28 Baseball Pitcher: Savage Jacob MDHemoglobin (Bld) [Mass/Vol]9.1 g/dLLow11.9-15.1 [facility] CenterComment on above:Performed By: #### CDP, PFA, CP, GLYHGB #### [facility] [address] [place] [address]51 Baseball Pitcher: ALISSA BarahonaCH (RBC) [Entitic mass]28.3 fzYjnapq59.2-33.5 [facility] CenterComment on above:Performed By: #### CDP, PFA, CP, GLYHGB #### [facility] [address] [place] [address] 18426 Baseball Pitcher: Savage Madoff, MDMCHC (RBC) [Mass/Vol]29.7 g/rXHadgkv04.4-34.8 [facility] CenterComment on above:Performed By: #### CDP, PFA, CP, GLYHGB #### [facility] [address] [place] [address] Baseball Pitcher: ALISSA BarahonaCV (RBC) [Entitic vol]95.3 gQMpzcid70.6-102.9 [facility] CenterComment on above:Performed By: #### CDP, PFA, CP, GLYHGB #### [place] [address] Baseball Pitcher: ILANA Barhaona Automated0.0 per 100 WBCNormal0.0A[facility] Medical CenterComment on above:Performed By: #### CDP, PFA, CP, GLYHGB #### [facility] [address] [place] [address] Baseball Pitcher: Taylor Barahonatemartine mean volume (Bld) [Entitic vol]9.7 fL Normal8.1-13.5A[facility] Medical CenterComment on above:Performed By: #### CDP, PFA, CP, GLYHGB #### [facility] [address] [place] [address] Baseball Pitcher: Taylor Barahonatejimbo (Bld) [#/Vol]291 10*3/pQTfelph328-048 [facility] CenterComment on above:Performed By: #### CDP, PFA, CP, GLYHGB #### [facility] [address] [place] [address] Baseball Pitcher: ISABELLE BarahonaBC (Bld) [#/Vol]3.21 10*6/uLLow3.95-5.11[facility] Medical CenterComment on above:Performed By: #### CDP, PFA, CP, GLYHGB #### [address] [place] [address] Baseball Pitcher: Savage Jacob MDWBC (Bld) [#/Vol]17.3 10*3/uLHigh3.5-11.3[facility] Hospital Of San BernardinoComment on above:Performed By: #### CDP, PFA, CP, GLYHGB #### [employer] [address] [place], [place] [id number] Baseball Pitcher: Savage Jacob MDErythrocyte distribution width (RBC) [Ratio]15.5 %High11.8 - 14.4 %[facility], KYHematocrit (Bld) [Volume fraction]30.6 % Low36.3 - 47.1 %[facility] [place], KYHemoglobin (Bld) [Mass/Vol]9.1 g/dLLow11.9 - 15.1 g/dLDayton Children'S Hospital [place], KYInterpretation and review of laboratory results AbnormalMer[facility] Health [facility], [facility] MIAMIH (RBC) [Entitic mass]28.3 pg25.2 - 33.5 pgMercy Health [facility], MNMCHC (RBC) [Mass/Vol]29.7 g/dL28.4 - 34.8 g/dLUniversity Hospitals Ahuja [facility] Center- [place], [place] MCV (RBC) [Entitic vol]95.3 fL82.6 - 102.9 fLDayton Children'S Hospital [place], KYPlatelet mean volume (Bld) [Entitic vol]9.7 fL8.1 - 13.5 fLUniversity Hospitals Ahuja Medical Center- [place], KYPlatelets (Bld) [#/Vol]291 10*3/uLUniversity Hospitals Ahuja [facility] Center- [place], KYRBC (Bld) [#/Vol]3.21 10*6/uLLow3.95 - 5.11 m/uLUniversity Hospitals Ahuja [facility] Center- [place], KYWBC (Bld) [#/Vol]0.0 10*3/uL0.0 per 100 WBCUniversity Hospitals Ahuja [facility] Center- [place], KYWBC (Bld) [#/Vol]17.3 10*3/uLHighUniversity Hospitals Ahuja [facility] Center- [place], KYK (Potassium) on 73-70-3062Wllisbtnh [Moles/Vol]3.7 mmol/LNormal3.7-5.3[facility] Hospital Of San BernardinoComment on above:Performed By: #### CDP, PFA, CP, GLYHGB #### [employer] [address] [place], [place] [id number] Baseball Pitcher: Miles Barahonagnesiumon 04-29-1409Ivckiyvoh [Mass/Vol]2.8 mg/dLHigh1.6-2.6MercGranada Hills Community HospitalComment on above:Performed By: #### CDP, PFA, CP, GLYHGB #### [employer] [address] [place], [place] [id number] Baseball Pitcher: Savage Jacob MDMagnesium [Mass/Vol]2.8 mg/dLHigh1.6 - 2.6 mg/dL [facility], KYOtheron 06-72-1978Sogrkxobfvxjnr and review of laboratory resultsAbWilson Memorial Hospital, MNInterpretation and review of laboratory resultsAbWilson Memorial Hospital, [facility] Glucose Fingerstickon 07-22-2019 Interpretation and review of laboratory resultsAbWilson Memorial Hospital, [facility] Bvacqkd305 mg/rKDsbs06 - 105 mg/dLMercy Health [facility], MNInterpretation and review of laboratory resultsAbWilson Memorial Hospital, [facility] Gngpcnd038 mg/qOPmuz74 - 105 mg/dLMercy Health Kings [facility], [facility] Dhjgdvn26 mg/dL65 - 105 mg/dLMercy Health [facility], [facility] Hzorpio80 mg/dL65 - 105 mg/dLMercy Health Kings [facility], KYPOTASSIUMon 07-22-2019 Potassium [Moles/Vol]3.7 mmol/L3.7 - 5.3 mmol/LMMercy Health [facility], KYPTon 59-84-8470SKF Coag (PPP) [Relative time]1.2 {INR}NormalAdena Fayette Medical CenterComment on above:Result Comment: Therapeutic Range: Moderate Anticoagulant Intensity: INR = 2.0-3.0 High Anticoagulant Intensity: INR = 2.5-3.5Performed By: #### CDP, PFA, CP, GLYHGB #### [employer] [address] [place], [place] [id number] Baseball Pitcher: HALEY BarahonaT Coag (PPP) [Time]12.4 sHigh9.0-12.0Adena Fayette Medical CenterComment on above:Performed By: #### CDP, PFA, CP, GLYHGB #### [employer] [facility] [place], [place] [id number] Baseball Pitcher: Ric Barahonanovant health kernersville [facility]-INRon 02-68-1727NNT Coag (PPP) [Relative time]1.2 {INR}[facility], KYPT Coag (PPP) [Time]12.4 [facility], KYXR CHEST (SINGLE VIEW FRONTAL)on 62-10-8694ES CHEST (SINGLE VIEW FRONTAL) EXAMINATION: ONE XRAY [...] Signed by: Morro Miranda MD 07/21/19 Final resultNormalAdena Fayette Medical CenterAPTTon 01-40-1378sLQW Coag (Bld) [Time]56.0 sHigh20.5-30.5Adena Fayette Medical CenterComment on above: Performed By: #### CDP, PFA, CP, GLYHGB #### [employer] [facility] [place], [place] 2479808 Baseball Pitcher: Delfino BarahonaT Coag (Bld) [Time]56.0 [facility] [place], KYInterpretation and review of laboratory resultsAbnoProMedica Flower Hospital [place], KYaPTT Coag (Bld) [Time]84.1 [facility]-[address] [place] [address] Comment on above:Performed By: #### CDP, PFA, CP, GLYHGB #### [employer] [address] [place], [place] [id number] Baseball Pitcher: Shalom Barahonag (Bld) [Time]84.1 [facility] [place], KYInterpretation and review of laboratory resultsAbnoSumma Health Wadsworth - [facility]itt[facility], MNaPTT Coag (Bld) [Time]70.7 [facility] Hospitalh20.5-30.5[facility] Comment on above:Performed By: #### CDP, PFA, CP, GLYHGB #### [employer] [address] [place] [address] [id number] Baseball Pitcher: Shalom Barahona Coag (Bld) [Time]70.7 [facility], MNAnion Gap (Calc) POCon 68-09-5884Ofpag gap [Moles/Vol]12 mmol/L7 - 16 mmol/[facility]- [place], MNArterial Blood Gas, POCon 52-54-4211Xfrhm TestPositive [facility]- [place], YCNGW888.0[facility]- [place], KYModeNOT REPORTEDUniversity Hospitals Ahu[facility]- [place], KYNegative Base Excess, ArtNOT REPORTEDUniversity Hospitals Ahuja [facility] Center- [place], KYO2 Device/Flow/% NRBMUniversity Hospitals [facility]- [place], MNPO ZBK992.2 mmol/LHigh21 - 28 mmol/LMohiohealth grady memorial hospital Health- [place], [place] POC O2 SAT94 %94 - 98 %[facility]- [place], [facility] yLT025.1MUniversity Hospitals [facility]- [place], [facility] pCO2 TempNOT REPORTEDmm HgUniversity Hospitals Ahuja Medical Center- [place], MNPO pH7.419[facility]- [place], MNPO pH TempNOT REPORTEDUniversity Hospitals Ahu[facility]- [place], KYPOC PO270.8LowUniversity Hospitals Ahuja Medical Center- [place], KYPOC pO2 TempNOT REPORTEDmm HgUniversity Hospitals Ahuja [facility] Center- [place], KYPositive Base Excess, Hwv4UughXwqps Health- [place], KYPt TempNOT REPORTEDUniversity Hospitals Ahuja [facility] Center- [place], KYSample SiteLeft Radial ArteryMerShriners Hospitals for Children- [place], KYTCO2 (calc), Art31 mmol/LHigh22 - 29 mmol/LMohiohealth grady memorial hospital Health- [place], KYBasic Metabolic Panelon 46-61-9151Ixpmj gap [Moles/Vol]14 mmol/L9 - 17 mmol/LMbarberton citizens hospitaly Health- [place], KYBun/Cre RatioNOT REPORTEDUniversity Hospitals Ahuja [facility]- [place], [place] Calcium [Mass/Vol]9.0 mg/dL8.6 - 10.4 mg/dLUniversity Hospitals Ahuja Medical Center- [place], KYChloride [Moles/Vol]103 mmol/L98 - 107 mmol/LMbarberton citizens hospitaly Health- [place], KYCO2 [Moles/Vol]26 mmol/L 20 - 31 mmol/LMUniversity [facility]als [facility]- [place], KYCreatinine [Mass/Vol]1.74 mg/dLHigh0.5 - 0.9 mg/dLUniversity Hospitals Ahuja [facility] Center- [place], KYGFR Ravnqkrg24 mL/minLow>60[facility]- [place], [place] GFR CommentMerShriners Hospitals for Children- [place], KYGFR Non- Uuziixdj03 mL/minLow>60[facility]- [place], KYGFR StagingNOT REPORTEDUniversity Hospitals [facility]hu[facility]- [place], KYGlucose [Mass/Vol]184 mg/nNWzeb38 - 99 mg/dLUniversity Hospitals Ahuja Medical Center- [place], KYPotassium [Moles/Vol]4.4 mmol/L3.7 - 5.3 mmol/LMUniversity [facility]als [facility]- [place], KYSodium [Moles/Vol]143 mmol/L135 - 144 mmol/LMohiohealth grady memorial hospital Health- [place], KYUrea nitrogen [Mass/Vol]57 mg/dLHigh8 - 23 mg/dLUniversity Hospitals Ahuja [facility]- [place], KYBasic Metabolic Profon 07-21-2019(cont.)[facility] Comment on above:Result Comment: Average GFR for 70 or more years old: 75 mL/min/1.73sq m Chronic Kidney Disease: <60 mL/min/1.73sq m Kidney failure: <15 mL/min/1.73sq m eGFR calculated using average adult body mass. Additional eGFR calculator available at: http://www.[employer].com/multiple_crcl_2012.htmPerformed By: #### CDP, PFA, CP, GLYHGB #### [facility]Near[facility] [address] [place] [address] Baseball Pitcher: Savage Jacob MDAnion gap [Moles/Vol]14 mmol/LNormal9-17Adena Fayette Medical CenterComment on above:Performed By: #### CDP, PFA, CP, GLYHGB #### [facility] [employer] [address] [place] [address] Baseball Pitcher: Savage Jacob MDCalcium [Mass/Vol]9.0 mg/dLNormal8.6-10.4Aden[facility] Fayette Medical CenterComment on above:Performed By: #### CDP, PFA, CP, GLYHGB #### [facility] [employer] [address] [place] [address] Baseball Pitcher: Savage Jacob MDChloride [Moles/Vol]103 mmol/RMoiuzz29-704VzqheAdena Fayette Medical CenterComment on above:Performed By: #### CDP, PFA, CP, GLYHGB #### [facility] [address] [place] [address] Baseball Pitcher: Savage Jacob MDCO2 [Moles/Vol]26 mmol/MCzkobq41-90RqnaaAdena Fayette Medical CenterComment on above:Performed By: #### CDP, PFA, CP, GLYHGB #### [facility] [address] [place] [address] Baseball Pitcher: Savage Jacob MDCreatinine [Mass/Vol]1.74 mg/dLHigh0.50-0.90 [facility]ayette Medical CenterComment on above:Performed By: #### CDP, PFA, CP, GLYHGB #### [facility] [employer] [address] [place] [address] Baseball Pitcher: Savage Madoff, MDGFR, Amer35 mL/minLow>60A[facility]ayette Medical CenterComment on above:Performed By: #### CDP, PFA, CP, GLYHGB #### [facility] [address] [place] [address] Baseball Pitcher: Savage Jacob MDGFR,non Amer29 mL/minLow>60A[facility] Fayette Medical CenterComment on above:Performed By: #### CDP, PFA, CP, GLYHGB #### [facility] [address] [place] [address] Baseball Pitcher: Savage Jacob MDGlucose [Mass/Vol]184 mg/cYOnuf96-15AscebKeck Hospital of USCComment on above:Performed By: #### CDP, PFA, CP, GLYHGB #### [address] [address] Baseball Pitcher: HALEY Barahonaotassium [Moles/Vol]4.4 mmol/LNormal3.7-5.3 [facility] Medical CenterComment on above:Performed By: #### CDP, PFA, CP, GLYHGB #### [facility] [address] [place] [address] Baseball Pitcher: ZANA Barahonaodium [Moles/Vol]143 mmol/JKsihip802-386BoorgAdena Fayette Medical CenterComment on above:Performed By: #### CDP, PFA, CP, GLYHGB #### [facility] [address] [place] [address] Baseball Pitcher: Savage Jacob MDUrea nitrogen [Mass/Vol]57 mg/dLHigh8-23Adena Fayette Medical CenterComment on above:Performed By: #### CDP, PFA, CP, GLYHGB #### [facility] [address] [place] [address] Baseball Pitcher: Savage Jacob MDBUN/CRE RatioNOT REPORTEDNormal9-20A[facility] Fayette Medical CenterComment on above:Performed By: #### CDP, PFA, CP, GLYHGB #### [facility] [address] [place] [address] Baseball Pitcher: ZANA Barahonataging:NOT REPORTEDNormUniversity Hospitals TriPoint Medical CenterComment on above:Performed By: #### CDP, PFA, CP, GLYHGB #### [facility] [address] [place] [address] Baseball Pitcher: CASEY BarahonaALCIUM, IONIC (POC)on 90-10-1812XPK Ionized Calcium1.20 mmol/L1.15 - 1.33 mmol/LMbarberton citizens hospitaly [facility], KYCBCon 07-21-2019 Erythrocyte distribution width (RBC) [Ratio]16.0 %High11.8-14.4Aden[facility] Fayette Medical CenterComment on above:Performed By: #### CDP, PFA, CP, GLYHGB #### [facility] [address] [place] [address] Baseball Pitcher: Savage Jacob MDHematocrit (Bld) [Volume fraction]28.5 %Low 36.3-47.1MKeck Hospital of USCComment on above:Performed By: #### CDP, PFA, CP, GLYHGB #### [facility] [address] [place] [address] Baseball Pitcher: Savage Jacob MDHemoglobin (Bld) [Mass/Vol]8.5 g/dLLow11.9-15.1 [facility] Medical CenterComment on above:Performed By: #### CDP, PFA, CP, GLYHGB #### [facility] [address] [place] [address] Baseball Pitcher: ALISSA BarahonaCH (RBC) [Entitic mass]28.6 tnQmqqim24.2-33.5 [facility] CenterComment on above:Performed By: #### CDP, PFA, CP, GLYHGB #### [address] [address] Baseball Pitcher: ALISSA BarahonaCHC (RBC) [Mass/Vol]29.8 g/kXOgbosi48.4-34.8 [facility] Medical CenterComment on above:Performed By: #### CDP, PFA, CP, GLYHGB #### [address] [address] Baseball Pitcher: ALISSA BarahonaCV (RBC) [Entitic vol]96.0 wFZubdyx59.6-102.9 [facility] CenterComment on above:Performed By: #### CDP, PFA, CP, GLYHGB #### [address] [address] Baseball Pitcher: Savage Jacob MDNRBC Automated0.0 per 100 WBCNormal0.0Adena Fayette Medical CenterComment on above:Performed By: #### CDP, PFA, CP, GLYHGB #### [address] [address] Baseball Pitcher: Taylor Barahonatemartine mean volume (Bld) [Entitic vol]10.0 fL Normal8.1-13.5A[facility]ayette Medical CenterComment on above:Performed By: #### CDP, PFA, CP, GLYHGB #### [address] [address] Baseball Pitcher: Taylor Barahonatejimbo (Bld) [#/Vol]287 10*3/nLBcyaqe485-040 [facility] CenterComment on above:Performed By: #### CDP, PFA, CP, GLYHGB #### [address] [address] Baseball Pitcher: Savage Jacob MDRBC (Bld) [#/Vol]2.97 10*6/uLLow3.95-5.11A[facility] Medical CenterComment on above:Performed By: #### CDP, PFA, CP, GLYHGB #### [employer] [address] [place], [place] [id number] Baseball Pitcher: Savage Jacob MDWBC (Bld) [#/Vol]15.1 10*3/uLHigh3.5-11.3Mbarberton citizens hospitaly [facility] Hospital Of San BernardinoComment on above:Performed By: #### CDP, PFA, CP, GLYHGB #### [employer] [address] [place], [place] [phone] Baseball Pitcher: Savage Jacob MDErythrocyte distribution width (RBC) [Ratio]16.0 %High11.8 - 14.4 %[facility], KYHematocrit (Bld) [Volume fraction]28.5 % Low36.3 - 47.1 %[facility], MNHemoglobin (Bld) [Mass/Vol]8.5 g/dLLow11.9 - 15.1 g/dLMercy Health Kings [facility] Hospital, MNInterpretation and review of laboratory results AbnormalMercy Health Kings [facility] Hospital, [facility] MIAMIH (RBC) [Entitic mass]28.6 pg25.2 - 33.5 pgMercy Health Kings [facility] Hospital, [facility] MIAMIHC (RBC) [Mass/Vol]29.8 g/dL28.4 - 34.8 g/dLMercy Health [facility] Hospital, [place] MCV (RBC) [Entitic vol]96.0 fL82.6 - 102.9 fLMercy Health Kings Mills Hospital, MNPlatelet mean volume (Bld) [Entitic vol]10.0 fL8.1 - 13.5 fLMercy Health Kings Mills Hospital, KYPlatelets (Bld) [#/Vol]287 10*3/uLMercy Health [facility], KYRBC (Bld) [#/Vol]2.97 10*6/uLLow3.95 - 5.11 m/[facility], KYWBC (Bld) [#/Vol]15.1 10*3/uLHighMercy Health Kings [facility] Hospital, KYWBC (Bld) [#/Vol]0.0 10*3/uL0.0 per 100 WBCMercy Health Kings Mills Hospital, KYCHLORIDE (POC)on 75-06-7078TLU Ldmescwr995 mmol/L98 - 107 mmol/LMMercy Health [facility], [place] Creatinine W/GFR Point of Careon 82-21-8594PVD CommentMercy Health [facility] Hospital, KYGFR Qdtwknu02 mL/minLow>60[facility], KYGFR Non- Gbqxhxfq59 mL/minLow >60[facility], KYPOC Creatinine1.78 mg/dLHigh0.51 - 1.19 mg/dLMercy Health Kings [facility] Hospital, KYCult,Bloodon 04-36-7709Vndr,BloodSpecimen Description .BLOOD Special Requests L ARM 10 CC Culture NO GROWTH 6 DAYS Report Status FINAL 07/21/2019[facility] HospitalComment on above:Performed By: #### CDP, PFA, CP, GLYHGB #### [employer] [address] [place] [address] Baseball Pitcher: Brian Barahona,BloodSpecimen Description .BLOOD Special Requests R ARM 10 CC Culture NO GROWTH 6 DAYS Report Status FINAL 07/21/2019NoFort Hamilton HospitalComment on above:Performed By: #### CDP, PFA, CP, GLYHGB #### [employer] [address] [place] [address] Baseball Pitcher: CASEY Barahonaulture, Blood 1on 28-87-9323Sjkvjei RequestsL ARM 10 [facility], KYSpecial RequestsR ARM 10 [facility], [place] Hemoglobin and hematocrit, bloodon 72-79-3260JDD Snctafezig53 %Low36 - 46 %[facility], MNPOC Hemoglobin9.5 g/dLLow12 - 16 g/dLMercy Health Kings Mills Hospital, MNLactic Acid, POCon 52-11-9095IWB Lactic Acid0.95 mmol/L0.56 - 1.39 mmol/[facility], MNMagnesiumon 73-30-4339Urycemerw [Mass/Vol]3.1 mg/dLHigh1.6-2.6MKeck Hospital of USCComment on above:Performed By: #### CDP, PFA, CP, GLYHGB #### [employer] [address] [place] [address] Baseball Pitcher: Miles Barahonagnesium [Mass/Vol]3.1 mg/dLHigh1.6 - 2.6 mg/dL [facility], MNOtheron 42-87-8099Ughlrxctjttsef and review of laboratory resultsAbnoSumma Health [facility], MNInterpretation and review of laboratory resultsAbWilson Memorial Hospital, MNInterpretation and review of laboratory resultsAbWilson Memorial Hospital, MNCultureNO GROWTH 6 DAYSMercy Health [facility], [place] Specimen Description.BLOODMercy Health [facility], [facility] Glucose Fingerstickon 59-14-6693Tioktcdhbtyfly and review of laboratory resultsAbWilson Memorial Hospital, MNPO Xlhnpao415 mg/bJDhbd85 - 105 mg/dLMercy Health Kings [facility], MNInterpretation and review of laboratory resultsAbnoSumma Health Wadsworth - [facility], [facility] Ddypaxr303 mg/dL High65 - 105 mg/dLMercy Health Kings [facility], MNInterpretation and review of laboratory resultsAbnoSumma Health Wad[facility] - [facility]itt[facility], [facility] Llbjaxn751 mg/wFPsce45 - 105 mg/dLMercy Health [facility], MNPOCT Glucoseon 82-57-8798YKW Akmfhex978 mg/tFJntr87 - 100 mg/dL [facility], MNPOTASSIUM (POC)on 41-80-4398FBO Potassium3.3 mmol/LLow3.5 - 4.5 mmol/LMMercy Health [facility], MNPTon 49-29-1708SFX Coag (PPP) [Relative time]1.2 {INR}NormalAdena Fayette Medical CenterComment on above:Result Comment: Therapeutic Range: Moderate Anticoagulant Intensity: INR = 2.0-3.0 High Anticoagulant Intensity: INR = 2.5-3.5Performed By: #### CDP, PFA, CP, GLYHGB #### [employer] [address] [place], [place] [id number] Baseball Pitcher: RIGO Barahona Coag (PPP) [Time]12.3 sHigh9.0-12.0A[facility] Fayette Medical CenterComment on above:Performed By: #### CDP, PFA, CP, GLYHGB #### [employer] [address] [place], [place] [id number] Baseball Pitcher: Christo Barahona-INRon 89-81-3657DFK Coag (PPP) [Relative time]1.2 {INR}[facility], KYPT Coag (PPP) [Time]12.3 [facility], KYSODIUM (POC)on 23-39-0368LXD Aysrwh246 mmol/L138 - 146 mmol/LMercHolmes Regional Medical Center, KYXR CHEST (SINGLE VIEW FRONTAL)on 73-19-5678KppfaMercy Health [facility], [facility], KYXR CHEST PORTABLEon 90-36-6893MA CHEST PORTABLEEXAMINATION: ONE XRAY VIEW OF THE CHEST 07/19/2019 [...] Signed by: Dmitry Mcelroy MD 07/21/19 Final resultNormalMerNorthern Inyo Hospital, [facility], [facility], KYAPTTon 25-50-6782mQYL Coag (Bld) [Time]79.3 s High20.5-30.5A[facility]ayette Medical CenterComment on above:Performed By: #### CDP, PFA, CP, GLYHGB #### [employer] [address] [place], [place] [id number] Baseball Pitcher: Shalom Barahona Coag (Bld) [Time]79.3 [facility], KYInterpretation and review of laboratory resultsAbnormHolzer Hospital, KYaPTT Coag (Bld) [Time]68.2 sHigh20.5-30.5[facility] Comment on above:Performed By: #### CDP, PFA, CP, GLYHGB #### [facility] [address] [place] [id number] Baseball Pitcher: Shalom Barahona Coag (Bld) [Time]68.2 [facility], KYInterpretation and review of laboratory resultsAbnormCommunity Regional Medical Center [place], KYBasic Metabolic Panelon 12-04-5962Wvifn gap [Moles/Vol]16 mmol/L9 - 17 mmol/L [facility]- [place], KYBun/Cre RatioNOT REPORTEDUniversity Hospitals [facility]- [place], KYCalcium [Mass/Vol]8.7 mg/dL8.6 - 10.4 mg/dLDayton Children'S Hospital [place], KYChloride [Moles/Vol]101 mmol/L98 - 107 mmol/LMohiohealth grady memorial hospital Health- [place], KYCO2 [Moles/Vol]25 mmol/L20 - 31 mmol/L [facility]- [place], KYCreatinine [Mass/Vol]1.7 mg/dLHigh0.5 - 0.9 mg/dLUniversity Hospitals Ahuja [facility]- [place], KYGFR Fshsitrv95 mL/minLow>60[facility]- [place], KYGFR Comment [facility]- [place], KYGFR Non- Umkacajg85 mL/minLow>60[facility]- [place], [place] GFR StagingNOT REPORTEDMer Health- [place], KYGlucose [Mass/Vol]174 mg/hGUfft49 - 99 mg/dLWayne Hospital Health- [place], KYPotassium [Moles/Vol]4.5 mmol/L3.7 - 5.3 mmol/LMercy Health- [place], KYSodium [Moles/Vol]142 mmol/L135 - 144 mmol/LMbarberton citizens hospitaly Health- [place], [place] Urea nitrogen [Mass/Vol]51 mg/dLHigh8 - 23 mg/dLWayne Hospital Health- [place], KYBasic Metabolic Profon 07-20-2019(cont.)NormalAdena Fayette Medical CenterComment on above:Result Comment: Average GFR for 70 or more years old: 75 mL/min/1.73sq m Chronic Kidney Disease: <60 mL/min/1.73sq m Kidney failure: <15 mL/min/1.73sq m eGFR calculated using average adult body mass. Additional eGFR calculator available at: http://www.[employer]/multiple_crcl_2012.htmPerformed By: #### CDP, PFA, CP, GLYHGB #### [facility] [address] [place] [address] Baseball Pitcher: Savage Jacob MDAnion gap [Moles/Vol]16 mmol/LNormal9-17A[facility] Medical CenterComment on above:Performed By: #### CDP, PFA, CP, GLYHGB #### [employer] [address] [place] [address] Baseball Pitcher: CASEY Barahonaalcium [Mass/Vol]8.7 mg/dLNormal8.6-10.4A[facility] Medical CenterComment on above:Performed By: #### CDP, PFA, CP, GLYHGB #### [facility] [address] [place] [address] Baseball Pitcher: Savage Jacob MDChloride [Moles/Vol]101 mmol/UOihlvb32-324OrqhzAdena Fayette Medical CenterComment on above:Performed By: #### CDP, PFA, CP, GLYHGB #### [employer] [address] [place] [address] Baseball Pitcher: Savage Jacob MDCO2 [Moles/Vol]25 mmol/ZPnhjju37-43CpfaiAdena Fayette Medical CenterComment on above:Performed By: #### CDP, PFA, CP, GLYHGB #### [employer] [address] [place] [address] Baseball Pitcher: Savage Madoff, MDCreatinine [Mass/Vol]1.70 mg/dLHigh0.50-0.90 [facility] Medical CenterComment on above:Performed By: #### CDP, PFA, CP, GLYHGB #### [facility] [address] [place] [address] Baseball Pitcher: Savage Jacob MDGFR, Amer36 mL/minLow>60MerProvidence Tarzana Medical CenterComment on above:Performed By: #### CDP, PFA, CP, GLYHGB #### [facility] [address] [place] [address] Baseball Pitcher: Savage Jacob MDGFR,non Amer30 mL/minLow>60A[facility] Medical CenterComment on above:Performed By: #### CDP, PFA, CP, GLYHGB #### [facility] [address] [place] [address] Baseball Pitcher: Savage Jacob MDGlucose [Mass/Vol]174 mg/cUKvfq42-44Zretq [facility] Hospital Of San BernardinoComment on above:Performed By: #### CDP, PFA, CP, GLYHGB #### [facility] [address] [place] [address] Baseball Pitcher: Savage Jacob MDPotassium [Moles/Vol]4.5 mmol/LNormal3.7-5.3 [facility] CenterComment on above:Performed By: #### CDP, PFA, CP, GLYHGB #### [facility] [address] [place] [address] Baseball Pitcher: Savage Jacob, MDSodium [Moles/Vol]142 mmol/LVrqbdv631-473PqrsbAdena Fayette Medical CenterComment on above:Performed By: #### CDP, PFA, CP, GLYHGB #### [facility] [address] [place] [address] Baseball Pitcher: Savage Jacob MDUrea nitrogen [Mass/Vol]51 mg/dLHigh8-23MerSaint John's Regional Health CenterEast Franklin Medical CenterComment on above:Performed By: #### CDP, PFA, CP, GLYHGB #### [facility] [address] [place] [address] Baseball Pitcher: FELICITY Barahona/SHALINI BridgesOT REPORTEDNormal9-20A[facility] Medical CenterComment on above:Performed By: #### CDP, PFA, CP, GLYHGB #### [facility] [address] [place] [address] Baseball Pitcher: ZANA Barahonataging:NOT REPORTEDNormalAdena Fayette Medical CenterComment on above:Performed By: #### CDP, PFA, CP, GLYHGB #### [facility] [address] [place] [address] Baseball Pitcher: Ulysses Barahona 46-57-8086Erqmkoyyywj distribution width (RBC) [Ratio]16.2 %High11.8-14.4A[facility] Fayette Medical CenterComment on above:Performed By: #### CDP, PFA, CP, GLYHGB #### [facility] [address] [place] [address] Baseball Pitcher: Savage Jacob MDHematocrit (Bld) [Volume fraction]27.8 %Low 36.3-47.1MKeck Hospital of USCComment on above:Performed By: #### CDP, PFA, CP, GLYHGB #### [facility] [address] [place] [address] Baseball Pitcher: Savage Jacob MDHemoglobin (Bld) [Mass/Vol]8.6 g/dLLow11.9-15.1 [facility] CenterComment on above:Performed By: #### CDP, PFA, CP, GLYHGB #### [facility] [address] [place] [address] Baseball Pitcher: ALISSA BarahonaCH (RBC) [Entitic mass]29.1 ypEskyju63.2-33.5 [facility] CenterComment on above:Performed By: #### CDP, PFA, CP, GLYHGB #### [address] [address] Baseball Pitcher: ALISSA BarahonaCHC (RBC) [Mass/Vol]30.9 g/eIMwnkjn51.4-34.8 [facility] CenterComment on above:Performed By: #### CDP, PFA, CP, GLYHGB #### [address] [address] Baseball Pitcher: ALISSA BarahonaCV (RBC) [Entitic vol]93.9 cGYygmtd38.6-102.9 [facility] CenterComment on above:Performed By: #### CDP, PFA, CP, GLYHGB #### [address] [address] Baseball Pitcher: Savage Jacob MDNRBC Automated0.1 per 100 WBCHigh0.0A[facility] Fayette Medical CenterComment on above:Performed By: #### CDP, PFA, CP, GLYHGB #### [facility] [address] [place] [address] Baseball Pitcher: Daniel Barahona mean volume (Bld) [Entitic vol]10.2 fL Normal8.1-13.5A[facility] Fayette Medical CenterComment on above:Performed By: #### CDP, PFA, CP, GLYHGB #### [facility] [address] [place] [address] Baseball Pitcher: Rico Barahona (Bld) [#/Vol]370 10*3/mXRfgihh039-003 [facility] CenterComment on above:Performed By: #### CDP, PFA, CP, GLYHGB #### [facility] [address] [place] [address] [id number] Baseball Pitcher: ISABELLE BarahonaBC (Bld) [#/Vol]2.96 10*6/uLLow3.95-5.11A[facility] Medical CenterComment on above:Performed By: #### CDP, PFA, CP, GLYHGB #### [employer] [address] [place], [place] [id number] Baseball Pitcher: Savage Jacob MDWBC (Bld) [#/Vol]23.1 10*3/uLHigh3.5-11.3MKeck Hospital of USCComment on above:Performed By: #### CDP, PFA, CP, GLYHGB #### [facility] [address] [place], [place] [id number] Baseball Pitcher: Savage Jacob MDErythrocyte distribution width (RBC) [Ratio]16.2 %High11.8 - 14.4 %[facility], MNHematocrit (Bld) [Volume fraction]27.8 % Low36.3 - 47.1 %[facility], MNHemoglobin (Bld) [Mass/Vol]8.6 g/dLLow11.9 - 15.1 g/dLMercy Health Kings [facility], MNInterpretation and review of laboratory results AbnormalMercy Health Kings [facility], MNMCH (RBC) [Entitic mass]29.1 pg25.2 - 33.5 pgMercy Health [facility], MNMCHC (RBC) [Mass/Vol]30.9 g/dL28.4 - 34.8 g/dLMercy Health Kings [facility] Hospital, [place] MCV (RBC) [Entitic vol]93.9 fL82.6 - 102.9 fLMercy Health Kings Mills Hospital, MNPlatelet mean volume (Bld) [Entitic vol]10.2 fL8.1 - 13.5 fLMercy Health Kings Mills Hospital, KYPlatelets (Bld) [#/Vol]370 10*3/uLMercy Health [facility], KYRBC (Bld) [#/Vol]2.96 10*6/uLLow3.95 - 5.11 m/[facility], KYWBC (Bld) [#/Vol]0.1 10*3/uLHigh0.0 per 100 WBC [facility]- [place], KYWBC (Bld) [#/Vol]23.1 10*3/uLHighMercy Health- [place], KYEKG 12 Leadon 11-27-0819Jgxecc Ziat03GJSQjsmo Health- [place], KYP Bmyo92zgkxnzzBbqso Health- [place], KYP-R Vtgwybzj965 msMercy Health- [place], KYQ-T Sbvipfyw784 msMercy Health- [place], KYQRS Xqnluipu56 msMercy Health- [place], KYQTc Calculation (Bazett)437 msMercy Health- [place], KYR Osjz08psqzjazKbrqm Health- [place], KYT [place]-19degreesMercy Health- [place], KYVentricular Iczs70ETZYeymy Health- [place], KYMercy Health- [place], KYMercy Health- [place], KYAtrial Dhpd23WDKAkdcc Health- [place], KYP Ivck60dkkiwhqCemuj Health- [place], KYP-R Iatkqpzg138 msMercy Health- [place], KYQ-T Xxgevcru317 msMercy Health- [place], KYQRS Kkcatrlu30 msMercy Health- [place], KYQTc Calculation (zett)447 msMercy Health- [place], KYR Gfhb76qfrlrvzXkxes Health- [place], KYT [place]-80degreesMercy Health- [place], KYVentricular Kmlf76PMQIpkjs Health- [place], KYMercy Health- [place], KYMercy Health- [place], KYMagnesiumon 10-67-9773Hdhrbrlci [Mass/Vol]2.8 mg/dLHigh1.6-2.6Mbarberton citizens hospitaly Community Hospital Of San BernardinoComment on above:Performed By: #### CDP, PFA, CP, GLYHGB #### [employer] [address] [place] [address] Baseball Pitcher: Savage Jacob, MDMagnesium [Mass/Vol]2.8 mg/dLHigh1.6 - 2.6 mg/dL [facility]- [place], KYOtheron 23-16-9483Xjiqspbrkklgod and review of laboratory resultsAbnormalWayne Hospital Health- [place], KYPOC Glucose Fingerstickon 07-20-2019 Interpretation and review of laboratory resultsAbnormHolzer Hospital, [facility] Dmrflvc137 mg/xCBkhk02 - 105 mg/dLMercy Health [facility], KYInterpretation and review of laboratory resultsAbnormHolzer Hospital, MNPO Rbbvjsn520 mg/lPPces35 - 105 mg/dLMercy Health [facility], KYInterpretation and review of laboratory results AbnormalMercy Health [facility], MNPOC Thriddz445 mg/zUKzhp97 - 105 mg/dLMercy Health [facility], KYInterpretation and review of laboratory resultsAbnormHolzer Hospital, MNPOC Bwwdipv072 mg/dRVbif25 - 105 mg/dLMercy Health [facility], KYInterpretation and review of laboratory resultsAbnoSumma Health W[facility], [facility] Mlzocvu270 mg/dLHigh 65 - 105 mg/dLMercy Health Kings [facility], KYPTon 05-42-9557TAX Coag (PPP) [Relative time] 1.1 {INR}NormalAdena Fayette Medical CenterComment on above:Result Comment: Therapeutic Range: Moderate Anticoagulant Intensity: INR = 2.0-3.0 High Anticoagulant Intensity: INR = 2.5-3.5Performed By: #### CDP, PFA, CP, GLYHGB #### [employer] [address] [place] [address] Baseball Pitcher: RIGO Barahona Coag (PPP) [Time]11.7 sNormal9.0-12.0A[facility] Fayette Medical CenterComment on above:Performed By: #### CDP, PFA, CP, GLYHGB #### [employer] [address] [place], [place] [id number] Baseball Pitcher: Reinaldo Barahona 56-76-7845Itiufjakq [Mass/Vol]5.4 mg/dLHigh2.6 - 4.5 mg/dLMercy Health Kings [facility], KYPhosphorus, Inorg.on 07-20-2019 Phosphorus, Inorg.5.4 mg/dLHigh2.6-4.5A[facility]ayette Medical CenterComment on above:Performed By: #### CDP, PFA, CP, GLYHGB #### [facility] [address] [place] [address] Baseball Pitcher: Christo Barahona-INRon [phone] Coag (PPP) [Relative time]1.1 {INR}[facility], KYPT Coag (PPP) [Time]11.7 [facility], KYXR ABDOMEN FOR NG/OG/NE TUBE PLACEMENTon 32-52-4269BB ABDOMEN FOR NG/OG/NE TUBE PLACEMENTEXAMINATION: ONE SUPINE XRAY VIEW(S) OF THE ABDOMEN [...] Signed by: Dm Marie MD 07/20/19 Final resultNoUniversity Hospitals [facility], [facility], [facility], [facility] [phone] Coag (Bld) [Time]65.2 s High20.5-30.5A[facility]ayette Medical CenterComment on above:Performed By: #### CDP, PFA, CP, GLYHGB #### [employer] [address] [place], [place] [id number] Baseball Pitcher: Shalom Barahona Coag (Bld) [Time]65.2 [facility], KYInterpretation and review of laboratory resultsAbnoSumma Health Wad[facility] - [facility], KYaPTT Coag (Bld) [Time]60.0 sHigh20.5-30.5[facility] Comment on above:Performed By: #### CDP, PFA, CP, GLYHGB #### [employer] [facility] [place], [place] 0123[address] Baseball Pitcher: Delfino BarahonaT Coag (Bld) [Time]60.0 [facility], KYInterpretation and review of laboratory resultsAbnoSumma Health Wadsworth - [facility], MNaPTT Coag (Bld) [Time]77.1 sHigh20.5-30.5[facility] Comment on above:Performed By: #### CDP, PFA, CP, GLYHGB #### [employer] [facility] [place] [address] Baseball Pitcher: Shalom Barahonag (Bld) [Time]77.1 [facility], KYInterpretation and review of laboratory resultsAbnoSumma Health Wad[facility] - [facility], MNArterial Blood Gas, POCon 69-02-9096Iplea TestPositiveMercy Health [facility], KYFIO2 40.0[facility], KYModePRVCMMercy Health [facility], KYNegative Base Excess, ArtNOT REPORTEDMercy Health [facility], KYO2 Device/Flow/%Adult VentilatorMercy Health [facility], [facility] PMJ046.1 mmol/LHigh21 - 28 mmol/LMMercy Health [facility], MNPOC O2 SAT98 %94 - 98 %[facility], [facility] pLU290.0[facility]- [place], [facility] pCO2 TempNOT REPORTED mm HgUniversity Hospitals Ahuja Medical Center- [place], MNPOC pH7.465HighUniversity Hospitals Ahuja Medical Center- [place], [facility] pH TempNOT [facility] [place], MNPOC EN1144.3MUniversity Hospitals [facility]- [place], MNPO pO2 TempNOT REPORTEDmm HgUniversity Hospitals Ahuja [facility] Center- [place], MNPositive Base Excess, Dyc9VjcgObdre Health- [place], KYPt TempNOT [facility], KYSample SiteArterial LineDayton Children'S Hospital [place], KYTCO2 (calc), Art29 mmol/L22 - 29 mmol/LMUniversity Hospitals Geneva Medical Center- [place], KYGaylord Hospital Metabolic Panelon 54-31-0493Ofjww gap [Moles/Vol]13 mmol/L9 - 17 mmol/LMUniversity Hospitals [facility]- [place], KYBun/Cre RatioNOT REPORTEDMercy Health [facility], KYCalcium [Mass/Vol]8.7 mg/dL8.6 - 10.4 mg/dLMercy Health [facility], KYChloride [Moles/Vol]99 mmol/L98 - 107 mmol/LMUniversity Hospitals [facility]- [place], KYCO2 [Moles/Vol]25 mmol/L20 - 31 mmol/LMUniversity Hospitals [facility]- [place], [place] Creatinine [Mass/Vol]1.67 mg/dLHigh0.5 - 0.9 mg/dLMercy Health [facility], KYGFR Gybeuhwc65 mL/minLow>60[facility], KYGFR CommentMerSouthern [facility] Medical Center, KYGFR Non- Duftpuyo77 mL/minLow>60[facility], KYGFR StagingNOT REPORTEDMercy Health [facility], KYGlucose [Mass/Vol]252 mg/xHTlpy62 - 99 mg/dLMercy Health [facility], KYInterpretation and review of laboratory resultsAbnormalMercy Health [facility], KYPotassium [Moles/Vol]5.0 mmol/L3.7 - 5.3 mmol/[facility]- [place], KYSodium [Moles/Vol]137 mmol/L135 - 144 mmol/[facility]- [place], KYUrea nitrogen [Mass/Vol]44 mg/dLHigh8 - 23 mg/dLMercy Health [facility], [facility] Metabolic Profon 07-19-2019(cont.)[facility] Municipal HospitalComment on above:Result Comment: Average GFR for 70 or more years old: 75 mL/min/1.73sq m Chronic Kidney Disease: <60 mL/min/1.73sq m Kidney failure: <15 mL/min/1.73sq m eGFR calculated using average adult body mass. Additional eGFR calculator available at: http://www.[employer]/multiple_crcl_2012.htmPerformed By: #### CDP, PFA, CP, GLYHGB #### [employer] [address] [place] [address] Baseball Pitcher: Savage Jacob MDAnion gap [Moles/Vol]13 mmol/LNormal9-17A[facility]ayette Medical CenterComment on above:Performed By: #### CDP, PFA, CP, GLYHGB #### [address] [address] Baseball Pitcher: Savage Jacob MDCalcium [Mass/Vol]8.7 mg/dLNormal8.6-10.4A[facility] Medical CenterComment on above:Performed By: #### CDP, PFA, CP, GLYHGB #### [address] [address] Baseball Pitcher: Savage Jacob MDChloride [Moles/Vol]99 mmol/VXzbbsp45-771PkqebAdena Fayette Medical CenterComment on above:Performed By: #### CDP, PFA, CP, GLYHGB #### [facility] [address] [place] [address] Baseball Pitcher: Savage Jacob MDCO2 [Moles/Vol]25 mmol/BJvkeea86-77DrnauAdena Fayette Medical CenterComment on above:Performed By: #### CDP, PFA, CP, GLYHGB #### [address] [address] Baseball Pitcher: Savage Jacob MDCreatinine [Mass/Vol]1.67 mg/dLHigh0.50-0.90 [facility] CenterComment on above:Performed By: #### CDP, PFA, CP, GLYHGB #### [facility] [address] [place] [address] Baseball Pitcher: SALLY Barahona, Amer37 mL/minLow>60[facility] Medical CenterComment on above:Performed By: #### CDP, PFA, CP, GLYHGB #### [facility] [address] [place] [address] Baseball Pitcher: Savage Jacob MDGFR,non Amer30 mL/minLow>60[facility] Medical CenterComment on above:Performed By: #### CDP, PFA, CP, GLYHGB #### [facility] [address] [place] [address] Baseball Pitcher: Savage Jacob MDGlucose [Mass/Vol]252 mg/nZAhnw87-91ByvnyKeck Hospital of USCComment on above:Performed By: #### CDP, PFA, CP, GLYHGB #### [facility] [address] [place] [address] Baseball Pitcher: HALEY Barahonaotassium [Moles/Vol]5.0 mmol/LNormal3.7-5.3 [facility] CenterComment on above:Performed By: #### CDP, PFA, CP, GLYHGB #### [facility] [address] [place] [address] Baseball Pitcher: ZANA Barahonaodium [Moles/Vol]137 mmol/HSuhyep090-361YxxniAdena Fayette Medical CenterComment on above:Performed By: #### CDP, PFA, CP, GLYHGB #### [facility] [address] [place] [address] Baseball Pitcher: Savage Jacob MDUrea nitrogen [Mass/Vol]44 mg/dLHigh8-23A[facility] Medical CenterComment on above:Performed By: #### CDP, PFA, CP, GLYHGB #### [facility] [address] [place] [address] Baseball Pitcher: FELICITY Barahona/SHALINI Ziegler REPORTEDNormal9-20A[facility] Medical CenterComment on above:Performed By: #### CDP, PFA, CP, GLYHGB #### [facility] [address] [place] [address] Baseball Pitcher: ZANA Barahonataging:NOT REPORTEDNormalAdena Fayette Medical CenterComment on above:Performed By: #### CDP, PFA, CP, GLYHGB #### [facility] [address] [place] [address] Baseball Pitcher: CASEY BarahonaBCon 29-54-0571Jgjuiasmikt distribution width (RBC) [Ratio]15.9 %High11.8-14.4[facility] Medical CenterComment on above:Performed By: #### CDP, PFA, CP, GLYHGB #### [facility] [address] [place] [address] Baseball Pitcher: Savage Jacob MDHematocrit (Bld) [Volume fraction]26.6 %Low 36.3-47.1MKeck Hospital of USCComment on above:Performed By: #### CDP, PFA, CP, GLYHGB #### [facility] [address] [place] [address] Baseball Pitcher: Savage Jacob MDHemoglobin (Bld) [Mass/Vol]8.3 g/dLLow11.9-15.1 [facility] CenterComment on above:Performed By: #### CDP, PFA, CP, GLYHGB #### [facility] [address] [place] [address] Baseball Pitcher: ALISSA BarahonaCH (RBC) [Entitic mass]28.7 mpHuoevs70.2-33.5 [facility] CenterComment on above:Performed By: #### CDP, PFA, CP, GLYHGB #### [facility] [address] [place] [address] Baseball Pitcher: ALISSA BarahonaCHC (RBC) [Mass/Vol]31.2 g/qEUpkrhd65.4-34.8 [facility] CenterComment on above:Performed By: #### CDP, PFA, CP, GLYHGB #### [address] [address] Baseball Pitcher: ALISSA BarahonaCV (RBC) [Entitic vol]92.0 qKPdhvkp55.6-102.9 [facility] CenterComment on above:Performed By: #### CDP, PFA, CP, GLYHGB #### [address] [address] Baseball Pitcher: ILANA Barahona Automated0.0 per 100 WBCNormal0.0A[facility] Medical CenterComment on above:Performed By: #### CDP, PFA, CP, GLYHGB #### [address] [address] Baseball Pitcher: Taylor Barahonatemartine mean volume (Bld) [Entitic vol]10.5 fL Normal8.1-13.5A[facility] Medical CenterComment on above:Performed By: #### CDP, PFA, CP, GLYHGB #### [address] [address] Baseball Pitcher: Taylor Barahonatelets (Bld) [#/Vol]244 10*3/qALpgvea650-269 [facility] CenterComment on above:Performed By: #### CDP, PFA, CP, GLYHGB #### [address] [address] Baseball Pitcher: ISABELLE BarahonaBC (Bld) [#/Vol]2.89 10*6/uLLow3.95-5.11[facility] Medical CenterComment on above:Performed By: #### CDP, PFA, CP, GLYHGB #### [address] [address] Baseball Pitcher: Savage Jacob MDWBC (Bld) [#/Vol]19.4 10*3/uLHigh3.5-11.3[facility] Hospital Of San BernardinoComment on above:Performed By: #### CDP, PFA, CP, GLYHGB #### [employer] [address] [place] [address] Baseball Pitcher: Savage Jacob MDErythrocyte distribution width (RBC) [Ratio]15.9 %High11.8 - 14.4 %[facility], MNHematocrit (Bld) [Volume fraction]26.6 % Low36.3 - 47.1 %[facility], KYHemoglobin (Bld) [Mass/Vol]8.3 g/dLLow11.9 - 15.1 g/dLDayton Children'S Hospital [place], MNInterpretation and review of laboratory results AbnormalUniversity Hospitals Ahuja [facility] Center- [place], [facility] MIAMIH (RBC) [Entitic mass]28.7 pg25.2 - 33.5 pgDayton Children'S Hospital [place], KYMCHC (RBC) [Mass/Vol]31.2 g/dL28.4 - 34.8 g/dLMercy Health [facility], [place] MCV (RBC) [Entitic vol]92.0 fL82.6 - 102.9 fLMercy Health Kings [facility], MNPlatelet mean volume (Bld) [Entitic vol]10.5 fL8.1 - 13.5 fLUniversity Hospitals Ahuja Medical Center- [place], KYPlatelets (Bld) [#/Vol]244 10*3/uLUniversity Hospitals Ahuja Medical Center- [place], KYRBC (Bld) [#/Vol]2.89 10*6/uLLow3.95 - 5.11 m/uLUniversity Hospitals Ahuja Medical Center- [place], KYWBC (Bld) [#/Vol]19.4 10*3/uLHighMercy Health [facility], KYWBC (Bld) [#/Vol]0.0 10*3/uL0.0 per 100 WBCUniversity Hospitals Ahuja Medical Center- [place], KYExtubation on 96-70-3721Xswdd Health- [place], KYHematologyon 02-88-6095Jjyor product type Nom (BPU)Leukocyte Reduced Red CellMercy Health [facility], MNMagnesiumon 07-19-2019 Magnesium [Mass/Vol]2.5 mg/dLNormal1.6-2.6[facility] Comment on above:Performed By: #### CDP, PFA, CP, GLYHGB #### [employer] [address] [place], [place] [phone] Baseball Pitcher: Savage Jacob, MDMagnesium [Mass/Vol]2.5 mg/dL1.6 - 2.6 mg/dL [facility], KYOtheron 55-55-9996Ggjtqfpkal ResultCOMPATIBLEMercy Health [facility], MNCrossmatch ResultINCOMPATIBLEMercy Health [facility], MNDispense StatusREL FROM ALLOCMercy Health [facility], KYTransfusion StatusOK TO TRANSFUSEMercy Health [facility], [place] Transfusion StatusDO NOT ISSUE FOR TRANSFUSIONMercy Health [facility], MNUnit Divison0 [facility], MNInterpretation and review of laboratory resultsAbnoSumma Health [facility], [facility] Glucose Fingerstickon 11-44-4724Ftbyfxksesuvar and review of laboratory resultsAbWilson Memorial Hospital, MNPO Wcwdkqc407 mg/hUKkzx76 - 105 mg/dLMercy Health [facility], MNInterpretation and review of laboratory resultsAbnoal [facility], MNPO Qyfbqma334 mg/iHOxjv18 - 105 mg/dLMercy Health [facility], [place] Interpretation and review of laboratory resultsAbnoSumma Health [facility], [facility] Gdigarm255 mg/aLAgmz01 - 105 mg/dLMercy Health [facility], MNInterpretation and review of laboratory resultsAbnoSumma Health Wad[facility] - [facility], [facility] Cukipzv602 mg/yURahu93 - 105 mg/dLMercy Health [facility], KYPOCT Glucoseon 39-12-0786UTP Nalibcf830 mg/sQJkou97 - 100 mg/dLMercy Health Kings [facility], KYPTon 40-16-1248REE Coag (PPP) [Relative time]1.1 {INR}NormalAdena Fayette Medical CenterComment on above:Result Comment: Therapeutic Range: Moderate Anticoagulant Intensity: INR = 2.0-3.0 High Anticoagulant Intensity: INR = 2.5-3.5Performed By: #### CDP, PFA, CP, GLYHGB #### [employer] [address] [place] [address] Baseball Pitcher: RIGO Barahona Coag (PPP) [Time]11.1 sNormal9.0-12.0A[facility] Medical CenterComment on above:Performed By: #### CDP, PFA, CP, GLYHGB #### [employer] [address] [place] [address] Baseball Pitcher: HALEY Barahonarotime-INRon 57-08-3046OAO Coag (PPP) [Relative time]1.1 {INR}[facility]- [place], KYPT Coag (PPP) [Time]11.1 sMercy Health- [place], KYTYPE AND SCREENon 47-18-8401LSW/RhPositiveMercy Health- [place], KYAntibody IDMercy Health- [place], KYAntigen Type, PatientMercy Health- [place], KYArm Band NumberBE [id number] [facility] HospitalScrapblog [facility]- [place], KYDAT IgGNegativeMercy Health- [place], KYDispense StatusTRANSFUSED [employer] [facility]- [place], KYExpiration Date07/19/2019,2359[facility]- [place], KYUnit [id number] Health- [place], KYUnit [id number] Health- [place], KYUnit [id number] Health- [place], KYUnit [id number] Health- [place], KYUnit [id number] Health- [place], KYXR ABDOMEN FOR NG/OG/NE TUBE PLACEMENTon 89-52-2918QR ABDOMEN FOR NG/OG/NE TUBE PLACEMENT EXAMINATION: ONE [...] Signed by: Oscar Joshi MD 07/19/19 Final resultNormMansfield Hospital- [place], KYUniversity Hospitals [facility]- [place], KYUniversity Hospitals [facility]- [place], KYAPTTon 69-27-4606nWMA Coag (Bld) [Time]54.1 s High20.5-30.5A[facility] Medical CenterComment on above:Performed By: #### CDP, PFA, CP, GLYHGB #### [facility] [address] [place] [id number] Baseball Pitcher: Shalom Barahona Coag (Bld) [Time]54.1 sHigAshtabula County Medical Center, KYInterpretation and review of laboratory resultsAbnormalMer[facility] Health [facility], MNArterial Blood Gas, POCon 34-99-2009Irbvm TestNOT APPLICABLEMercy Health [facility], MLBSE878.0[facility], KYInterpretation and review of laboratory results AbnormalMer[facility] Health [facility], KYModePRVCMDoctors Hospital [place], KYNegative Base Excess, ArtNOT REPORTEDMercy Health [facility], KYO2 Device/Flow/%Adult VentilatorMercy Health [facility], [facility] DSF957.5 mmol/L21 - 28 mmol/[facility] [place], [facility] O2 SAT97 %94 - 98 %[facility], [facility] eUX897.1MMer[facility], [facility] pCO2 TempNOT REPORTEDmm HgDayton Children'S Hospital [place], [facility] pH7.467HighUniversity Hospitals Ahuja [facility]- [place], [facility] pH Temp NOT REPORTEDMercy Health [facility], [facility] PO281.0LowUniversity Hospitals Ahuja [facility] Center- [place], [facility] pO2 Temp NOT REPORTEDmm HgUniversity Hospitals Ahuja Medical Center- [place], MNPositive Base Excess, Ryd7KcafNjlqb Health- [place], KYPt TempNOT REPORTEDMercy Health [facility], MNSample SiteArterial LineMercy Health [facility], MNTCO2 (calc), Art29 mmol/L22 - 29 mmol/LMUniversity [facility]als [facility]- [place], KYBasic Metabolic Panelon 30-11-3737Byfvt gap [Moles/Vol]16 mmol/L9 - 17 mmol/LMercy Health- [place], KYBun/Cre RatioNOT REPORTEDMerShriners Hospitals for Children- [place], KYCalcium [Mass/Vol]8.8 mg/dL8.6 - 10.4 mg/dLUniversity Hospitals Ahuja [facility] Center- [place], KYChloride [Moles/Vol]97 mmol/LLow98 - 107 mmol/LMercy Health- [place], KYCO2 [Moles/Vol]25 mmol/L20 - 31 mmol/LMercy Health- [place], KYCreatinine [Mass/Vol]1.68 mg/dLHigh0.5 - 0.9 mg/dLUniversity Hospitals Ahuja [facility] Center- [place], KYGFR Uwlmtzzt50 mL/minLow>60Mer Health- [place], KYGFR CommentMerShriners Hospitals for Children- [place], KYGFR Non- Mcnhrpxe24 mL/minLow>60Mer [facility]- [place], KYGFR StagingNOT REPORTEDMerShriners Hospitals for Children- [place], KYGlucose [Mass/Vol]190 mg/nNGvwg44 - 99 mg/dLUniversity Hospitals Ahuja Medical Center- [place], KYPotassium [Moles/Vol]4.0 mmol/L3.7 - 5.3 mmol/LMercy Health- [place], KYSodium [Moles/Vol]138 mmol/L135 - 144 mmol/LMercy Health- [place], [place] Urea nitrogen [Mass/Vol]34 mg/dLHigh8 - 23 mg/dLUniversity Hospitals Ahuja Medical Center- [place], KYBasic Metabolic Profon 07-18-2019(cont.)[facility] Municipal HospitalComment on above:Result Comment: Average GFR for 70 or more years old: 75 mL/min/1.73sq m Chronic Kidney Disease: <60 mL/min/1.73sq m Kidney failure: <15 mL/min/1.73sq m eGFR calculated using average adult body mass. Additional eGFR calculator available at: http://www.[employer]/multiple_crcl_2012.htmPerformed By: #### CDP, PFA, CP, GLYHGB #### [facility] [address] [place] [address] Baseball Pitcher: Chayito Barahoan gap [Moles/Vol]16 mmol/LNormal9-17A[facility] Medical CenterComment on above:Performed By: #### CDP, PFA, CP, GLYHGB #### [facility] [address] [place] [address] Baseball Pitcher: Savage Jacob MDCalcium [Mass/Vol]8.8 mg/dLNormal8.6-10.4A[facility] Medical CenterComment on above:Performed By: #### CDP, PFA, CP, GLYHGB #### [facility] [address] [place] [address] Baseball Pitcher: CASEY Barahonahloride [Moles/Vol]97 mmol/CKoi40-811LivkaAdena Fayette Medical CenterComment on above:Performed By: #### CDP, PFA, CP, GLYHGB #### [facility] [address] [place] [address] Baseball Pitcher: Savage Jacob MDCO2 [Moles/Vol]25 mmol/QHpdiny70-78PdjsfAdena Fayette Medical CenterComment on above:Performed By: #### CDP, PFA, CP, GLYHGB #### [facility] [address] [place] [address] Baseball Pitcher: Savage Jacob MDCreatinine [Mass/Vol]1.68 mg/dLHigh0.50-0.90 [facility] Medical CenterComment on above:Performed By: #### CDP, PFA, CP, GLYHGB #### [facility] [address] [place] [address] Baseball Pitcher: SALLY Barahona, Amer37 mL/minLow>60A[facility] Fayette Medical CenterComment on above:Performed By: #### CDP, PFA, CP, GLYHGB #### [facility] [address] [place] [address] Baseball Pitcher: SALLY Barahona,non Amer30 mL/minLow>60A[facility] Fayette Medical CenterComment on above:Performed By: #### CDP, PFA, CP, GLYHGB #### [facility] [address] [place] [address] Baseball Pitcher: Savage Jacob MDGlucose [Mass/Vol]190 mg/mWBndi48-35WkumiKeck Hospital of USCComment on above:Performed By: #### CDP, PFA, CP, GLYHGB #### [place] [address] Baseball Pitcher: HALEY Barahonaotassium [Moles/Vol]4.0 mmol/LNormal3.7-5.3 [facility]ayette Medical CenterComment on above:Performed By: #### CDP, PFA, CP, GLYHGB #### [place] [address] Baseball Pitcher: ZANA Barahonaodium [Moles/Vol]138 mmol/GJshvas908-304FigfjAdena Fayette Medical CenterComment on above:Performed By: #### CDP, PFA, CP, GLYHGB #### [place] [address] Baseball Pitcher: Savage Jacob MDUrea nitrogen [Mass/Vol]34 mg/dLHigh8-23A[facility] Fayette Medical CenterComment on above:Performed By: #### CDP, PFA, CP, GLYHGB #### [place] [address] Baseball Pitcher: Savage Jacob MDBUN/CRE RatioNOT REPORTEDNormal9-20A[facility] Fayette Medical CenterComment on above:Performed By: #### CDP, PFA, CP, GLYHGB #### [facility] [address] [place] [address] Baseball Pitcher: ZANA Barahonataging:NOT REPORTEDNormalAdena Fayette Medical CenterComment on above:Performed By: #### CDP, PFA, CP, GLYHGB #### [address] [address] Baseball Pitcher: CASEY BarahonaBCstarla 22-13-9704BYFW Automated0.5 per 100 WBC High0.0Adena Fayette Medical CenterComment on above:Performed By: #### CDP, PFA, CP, GLYHGB #### [address] [address] Baseball Pitcher: Savage Jacob MDErythrocyte distribution width (RBC) [Ratio]15.9 %High11.8-14.4[facility], KYComment on above:Performed By: #### CDP, PFA, CP, GLYHGB #### [address] [address] Baseball Pitcher: Savage Jacob MDHematocrit (Bld) [Volume fraction]26.3 %Low 36.3-47.1MMercy Health [facility], KYComment on above:Performed By: #### CDP, PFA, CP, GLYHGB #### [address] [address] Baseball Pitcher: Savage Jacob MDHemoglobin (Bld) [Mass/Vol]8.4 g/dLLow11.9-15.1 [facility], KYComment on above:Performed By: #### CDP, PFA, CP, GLYHGB #### [facility] [address] [place] [address] Baseball Pitcher: ALISSA BarahonaCH (RBC) [Entitic mass]29.4 hjSccjmu52.2-33.5 [facility], KYComment on above:Performed By: #### CDP, PFA, CP, GLYHGB #### [facility] [address] [place] [address] Baseball Pitcher: ALISSA BraahonaCHC (RBC) [Mass/Vol]31.9 g/xAYorafn06.4-34.8 [facility], KYComment on above:Performed By: #### CDP, PFA, CP, GLYHGB #### [address] [address] Baseball Pitcher: DIANA Barahona (RBC) [Entitic vol]92.0 uOSshfcp55.6-102.9 [facility], KYComment on above:Performed By: #### CDP, PFA, CP, GLYHGB #### [address] [address] Baseball Pitcher: Daniel Barahona mean volume (Bld) [Entitic vol]10.6 fL Normal8.1-13.5[facility], KYComment on above:Performed By: #### CDP, PFA, CP, GLYHGB #### [address] [address] Baseball Pitcher: Rico Barahona (Bld) [#/Vol]246 10*3/wAWtjpgu766-254 [facility], KYComment on above:Performed By: #### CDP, PFA, CP, GLYHGB #### [address] [address] Baseball Pitcher: ISABELLE BarahonaBC (Bld) [#/Vol]2.86 10*6/uLLow3.95-5.11[facility], KYComment on above:Performed By: #### CDP, PFA, CP, GLYHGB #### [address] [address] Baseball Pitcher: PETR Barahona (Bld) [#/Vol]21.3 10*3/uLHigh3.5-11.3MMercy Health [facility], KYComment on above:Performed By: #### CDP, PFA, CP, GLYHGB #### [address] [id number] Baseball Pitcher: Savage Jacob MDInterpretation and review of laboratory results AbnormalMercy Health- [place], KYWBC (Bld) [#/Vol]0.5 10*3/uLHigh0.0 per 100 WBCMercy Health- [place], KYEKG 12 Leadon 28-64-3766Sezhan Vehd62VVYCtyyd Health- [place], KYP Kpxl49wntrwtyWibwm Health- [place], KYP-R Lzteypnk128 msMercy Health- [place], KYQ-T Nsuuzwil254 msMercy Health- [place], KYQRS Nwzbfeas72 msMercy Health- [place], KYQTc Calculation (Bazett)427 msMercy Health- [place], KYR Fcjj16qtswxzsRvxil Health- [place], KYT [place]-33degreesMercy Health- [place], KYVentricular Kawl61AKRNelxj Health- [place], [place] [facility]- [place], KYMercy Health- [place], KYAtrial Fske78GKPCuytg Health- [place], KYP Vaky91nneeryrGuwdc Health- [place], KYP-R Pcbranny863 msMercy Health- [place], KYQ-T Rvvrpotc372 msMercy Health- [place], KYQRS Prmzuvoo96 msMercy Health- [place], KYQTc Calculation (Bazett)405 msMercy Health- [place], KYR Psxd23qhqmeptDzzes Health- [place], KYT [place]-12degreesMercy Health- [place], KYVentricular Keni61SZLBdqzl Health- [place], [place] [facility]- [place], KYMercy Health- [place], KYMagnesiumon 99-74-9384Rlmngwroc [Mass/Vol]2.3 mg/dLNormal1.6-2.6Mer[facility] Hospital Of San BernardinoComment on above:Performed By: #### CDP, PFA, CP, GLYHGB #### [employer] [address] [place], [place] [address] Baseball Pitcher: Savage Jacob MDMagnesium [Mass/Vol]2.3 mg/dL1.6 - 2.6 mg/dL [facility]- [place], KYOtheron 86-47-2693Zklzyfqqcuxrtl and review of laboratory resultsAbnormalAdena Fayette Medical Centercy Health- [place], KYPOC Glucose Fingerstickon 07-18-2019 Interpretation and review of laboratory resultsAbnoSumma Health [facility], [facility] Ldmnixb363 mg/oDYwvy12 - 105 mg/dLMercy Health [facility], KYInterpretation and review of laboratory resultsAbnoSumma Health Wad[facility] - [facility], MNPO Fibsqtg496 mg/sSBfvi10 - 105 mg/dLMercy Health [facility], KYInterpretation and review of laboratory results AbnormalMercy Health [facility], MNPO Tubswux791 mg/aTZhpz94 - 105 mg/dLMercy Health [facility], KYInterpretation and review of laboratory resultsAbnoSumma Health Wad[facility] - [facility], [facility] Ndulnco785 mg/fFMmxy92 - 105 mg/dLMercy Health [facility], KYInterpretation and review of laboratory resultsAbnoSumma Health W[facility] - [facility], [facility] Quekesa573 mg/dLHigh 65 - 105 mg/dLMercy Health [facility], KYInterpretation and review of laboratory resultsAbnoSumma Health Wad[facility] - [facility], [facility] Hmogjft981 mg/pXCwdj06 - 105 mg/dLMercy Health [facility], KYPTon 08-59-1589NDS Coag (PPP) [Relative time]1.1 {INR}NormalAdena Fayette Medical CenterComment on above:Result Comment: Therapeutic Range: Moderate Anticoagulant Intensity: INR = 2.0-3.0 High Anticoagulant Intensity: INR = 2.5-3.5Performed By: #### CDP, PFA, CP, GLYHGB #### [employer] [address] [place] [address] Baseball Pitcher: RIGO Barahona Coaanum (PPP) [Time]11.3 sNormal9.0-12.0Adena Fayette Medical CenterComment on above:Performed By: #### CDP, PFA, CP, GLYHGB #### [employer] [address] [place] [address] Baseball Pitcher: Reinaldo Barahona 64-54-1506Kpkwrmkrf [Mass/Vol]4.8 mg/dLHigh2.6 - 4.5 mg/dLMercy Health Kings [facility], KYPhosphorus, Inorg.on 07-18-2019 Phosphorus, Inorg.4.8 mg/dLHigh2.6-4.5Adena Fayette Medical CenterComment on above:Performed By: #### CDP, PFA, CP, GLYHGB #### [employer] [address] [place] [address] Baseball Pitcher: HALEY Barahonarotime-INRon 91-51-1517NFL Coag (PPP) [Relative time]1.1 {INR}[facility], KYPT Coag (PPP) [Time]11.3 [facility], KYXR CHEST PORTABLEon 83-49-9889XF CHEST PORTABLEEXAMINATION: ONE XRAY VIEW OF THE CHEST 07/18/2019 [...] Signed by: Red Sheets MD 07/18/19 Final resultNormalMarymount Hospital, [facility], [facility], KYAPTTon 23-86-5585jQYO Coag (Bld) [Time]59.8 s High20.5-30.5Adena Fayette Medical CenterComment on above:Performed By: #### CDP, PFA, CP, GLYHGB #### [employer] [address] [place] [address] [phone] Baseball Pitcher: Savage Jacob MDaPTT Coag (Bld) [Time]59.8 sHighMercy Health- [place], KYInterpretation and review of laboratory resultsAbnormalMer Health- [place], MNArterial Blood Gas, POCon 08-98-2906Jqvxu TestNOT REPORTEDMercy Health- [place], [place] FHX9URH REPORTEDMercy Health- [place], KYModeNOT REPORTEDMercy Health- [place], KYNegative Base Excess, ArtNOT REPORTEDMercy Health- [place], KYO2 Device/Flow/%NOT REPORTED [facility]- [place], KYPOC ZHG351.0 mmol/LHigh21 - 28 mmol/LMercy Health- [place], KYPOC O2 SAT96 %94 - 98 %[facility]- [place], MNPOC pSV628.0[facility]- [place], [facility] pCO2 TempNOT REPORTEDmm HgMercy Health- [place], MNPOC pH7.529HighMercy Health- [place], MNPO pH TempNOT REPORTEDMercy Health- [place], KYPOC PO269.6LowMercy Health- [place], MNPO pO2 TempNOT REPORTEDmm HgMercy Health- [place], KYPositive Base Excess, Bul3WaqnUivnv Health- [place], KYPt TempNOT REPORTEDMercy Health- [place], KYSample SiteArterial Line [facility]- [place], KYTCO2 (calc), Art31 mmol/LHigh22 - 29 mmol/LMercy Health- [place], KYBasic Metabolic Panelon 61-12-5641Micny gap [Moles/Vol]13 mmol/L9 - 17 mmol/L [facility]- [place], KYBun/Cre RatioNOT REPORTEDMercy Health- [place], KYCalcium [Mass/Vol]8.5 mg/dLLow8.6 - 10.4 mg/dLMercy Health- [place], KYChloride [Moles/Vol]99 mmol/L98 - 107 mmol/LMercy Health- [place], KYCO2 [Moles/Vol]25 mmol/L20 - 31 mmol/L [facility]- [place], KYCreatinine [Mass/Vol]1.34 mg/dLHigh0.5 - 0.9 mg/dLMercy Health- [place], KYGFR Uulqheol51 mL/minLow>60[facility]- [place], KYGFR Comment [facility]- [place], KYGFR Non- Lzuvenls71 mL/minLow>60[facility]- [place], [place] GFR StagingNOT REPORTEDMercy Health [facility], KYGlucose [Mass/Vol]234 mg/aGWret45 - 99 mg/dLMercy Health [facility], MNInterpretation and review of laboratory results AbnormalMercy Health [facility], KYPotassium [Moles/Vol]4.1 mmol/L3.7 - 5.3 mmol/LMMercy Health [facility], KYSodium [Moles/Vol]137 mmol/L135 - 144 mmol/[facility], [place] Urea nitrogen [Mass/Vol]33 mg/dLHigh8 - 23 mg/dLMercy Health [facility], KYBasic Metabolic Profon 07-17-2019(cont.)NormalAdena Fayette Medical CenterComment on above:Result Comment: Average GFR for 70 or more years old: 75 mL/min/1.73sq m Chronic Kidney Disease: <60 mL/min/1.73sq m Kidney failure: <15 mL/min/1.73sq m eGFR calculated using average adult body mass. Additional eGFR calculator available at: http://www.LikeBetter.com/multiple_crcl_2012.htmPerformed By: #### CDP, PFA, CP, GLYHGB #### [employer] [address] [place] [address] Baseball Pitcher: Savage Jacob MDAnion gap [Moles/Vol]13 mmol/LNormal9-17Aden[facility] Fayette Medical CenterComment on above:Performed By: #### CDP, PFA, CP, GLYHGB #### [employer] [address] [place] [address] Baseball Pitcher: CASEY Barahonaalcium [Mass/Vol]8.5 mg/dLLow8.6-10.4Aden[facility] Fayette Medical CenterComment on above:Performed By: #### CDP, PFA, CP, GLYHGB #### [employer] [address] [place] [address] [id number] Baseball Pitcher: CASEY Barahonahloride [Moles/Vol]99 mmol/WSgfyxv62-753TpjhdAdena Fayette Medical CenterComment on above:Performed By: #### CDP, PFA, CP, GLYHGB #### [facility] [address] [place] [address] Baseball Pitcher: Savage Jacob MDCO2 [Moles/Vol]25 mmol/VKtksyc75-00AfoidAdena Fayette Medical CenterComment on above:Performed By: #### CDP, PFA, CP, GLYHGB #### [facility] [address] [place] [address] Baseball Pitcher: CASEY Barahonareatinine [Mass/Vol]1.34 mg/dLHigh0.50-0.90 [facility] Medical CenterComment on above:Performed By: #### CDP, PFA, CP, GLYHGB #### [facility] [address] [place] [address] Baseball Pitcher: Savage Jacob MDGFR, Amer47 mL/minLow>60A[facility]ayette Medical CenterComment on above:Performed By: #### CDP, PFA, CP, GLYHGB #### [facility] [address] [place] [address] Baseball Pitcher: Savage Jacob MDGFR,non Amer39 mL/minLow>60A[facility] Medical CenterComment on above:Performed By: #### CDP, PFA, CP, GLYHGB #### [facility] [address] [place] [address] Baseball Pitcher: Savage Jacob MDGlucose [Mass/Vol]234 mg/bWEppi77-41Fcosy Community Hospital Of San BernardinoComment on above:Performed By: #### CDP, PFA, CP, GLYHGB #### [facility] [address] [place] [address] Baseball Pitcher: Savage Jacob MDPotassium [Moles/Vol]4.1 mmol/LNormal3.7-5.3 [facility] Medical CenterComment on above:Performed By: #### CDP, PFA, CP, GLYHGB #### [facility] [address] [place] [address] Baseball Pitcher: ZANA Barahonaodium [Moles/Vol]137 mmol/XFuyluc813-180WlqonAdena Fayette Medical CenterComment on above:Performed By: #### CDP, PFA, CP, GLYHGB #### [facility] [address] [place] [address] Baseball Pitcher: Savage Jacob MDUrea nitrogen [Mass/Vol]33 mg/dLHigh8-23A[facility]ayette Medical CenterComment on above:Performed By: #### CDP, PFA, CP, GLYHGB #### [facility] [address] [place] [address] Baseball Pitcher: Savage Jacob MDBUN/CRE RatioNOT REPORTEDNormal9-20A[facility] Medical CenterComment on above:Performed By: #### CDP, PFA, CP, GLYHGB #### [facility] [address] [place] [address] Baseball Pitcher: ZANA Barahonataging:NOT REPORTEDNormalAdena Fayette Medical CenterComment on above:Performed By: #### CDP, PFA, CP, GLYHGB #### [facility] [address] [place] [address] Baseball Pitcher: CASEY Barahonastarla 82-46-4506Ocyzosppuqn distribution width (RBC) [Ratio]15.4 %High11.8-14.4A[facility] Fayette Medical CenterComment on above:Performed By: #### CDP, PFA, CP, GLYHGB #### [facility] [address] [place] [address] Baseball Pitcher: Savage Jacob MDHematocrit (Bld) [Volume fraction]24.1 %Low 36.3-47.1Mer[facility] Hospital Of San BernardinoComment on above:Performed By: #### CDP, PFA, CP, GLYHGB #### [address] [address] Baseball Pitcher: Savage Jacob MDHemoglobin (Bld) [Mass/Vol]7.8 g/dLLow11.9-15.1 [facility] Medical CenterComment on above:Performed By: #### CDP, PFA, CP, GLYHGB #### [address] [address] Baseball Pitcher: ALISSA BarahonaCH (RBC) [Entitic mass]29.3 zvDvvhik51.2-33.5 [facility] Medical CenterComment on above:Performed By: #### CDP, PFA, CP, GLYHGB #### [address] [address] Baseball Pitcher: JAIME BarahonaC (RBC) [Mass/Vol]32.4 g/uTPntmcu26.4-34.8 [facility] CenterComment on above:Performed By: #### CDP, PFA, CP, GLYHGB #### [address] [address] Baseball Pitcher: ALISSA BarahonaCV (RBC) [Entitic vol]90.6 vHWgflxx54.6-102.9 [facility] Medical CenterComment on above:Performed By: #### CDP, PFA, CP, GLYHGB #### [address] [address] Baseball Pitcher: Savage Jacob MDNRBC Automated0.9 per 100 WBCHigh0.0Adena Fayette Medical CenterComment on above:Performed By: #### CDP, PFA, CP, GLYHGB #### [address] [address] Baseball Pitcher: HALEY Barahonalatelet mean volume (Bld) [Entitic vol]10.5 fL Normal8.1-13.5A[facility] Fayette Medical CenterComment on above:Performed By: #### CDP, PFA, CP, GLYHGB #### [facility] [place] [address] Baseball Pitcher: Rico Barahona (Bld) [#/Vol]216 10*3/fRRtkrbq628-703 [facility] Medical CenterComment on above:Performed By: #### CDP, PFA, CP, GLYHGB #### [facility] [address] [place] [address] Baseball Pitcher: ISABELLE BarahonaBC (Bld) [#/Vol]2.66 10*6/uLLow3.95-5.11A[facility]ayette Medical CenterComment on above:Performed By: #### CDP, PFA, CP, GLYHGB #### [facility] [address] [place] [address] Baseball Pitcher: EPHRAIM BarahonaBC (Bld) [#/Vol]19.2 10*3/uLHigh3.5-11.3MKeck Hospital of USCComment on above:Performed By: #### CDP, PFA, CP, GLYHGB #### [facility] [address] [place] [address] Baseball Pitcher: Savage Jacob MDErythrocyte distribution width (RBC) [Ratio]15.4 %High11.8 - 14.4 %[facility], KYHematocrit (Bld) [Volume fraction]24.1 % Low36.3 - 47.1 %[facility], KYHemoglobin (Bld) [Mass/Vol]7.8 g/dLLow11.9 - 15.1 g/dLMercy Health [facility], MNInterpretation and review of laboratory results AbnormalUK HealthcareH (RBC) [Entitic mass]29.3 pg25.2 - 33.5 pgUK HealthcareHC (RBC) [Mass/Vol]32.4 g/dL28.4 - 34.8 g/dLQueen Anne, [place] MCV (RBC) [Entitic vol]90.6 fL82.6 - 102.9 fLFirelands Regional Medical [facility] JERRYPlatelet mean volume (Bld) [Entitic vol]10.5 fL8.1 - 13.5 fLFirelands Regional Medical Center [facility] JERRYPlatelets (Bld) [#/Vol]216 10*3/uLMercy Health [facility], MNRBC (Bld) [#/Vol]2.66 10*6/uLLow3.95 - 5.11 m/[facility], MNWBC (Bld) [#/Vol]19.2 10*3/uLHighQueen Anne, KYWBC (Bld) [#/Vol]0.9 10*3/uLHigh0.0 per 100 WBCQueen Anne, [place] Cult,Bloodon 36-66-1437Dxkb,BloodSpecimen Description .BLOOD Special Requests L HAND 6CC Culture NO GROWTH 6 DAYS Report Status FINAL 07/17/2019[facility] HospitalComment on above:Performed By: #### CDP, PFA, CP, GLYHGB #### [employer] [address] [place] [address] Baseball Pitcher: Brian Barahona,BloodSpecimen Description .BLOOD Special Requests R HAND 3CC Culture NO GROWTH 6 DAYS Report Status FINAL 07/17/2019[facility] HospitalComment on above:Performed By: #### CDP, PFA, CP, GLYHGB #### [employer] [address] [place] [address] Baseball Pitcher: Brian Barahona,Respiratoryon 00-83-4040Oegn,Respiratory Specimen Description .SUCTIONED SPUTUM Special Requests NOT REPORTED Direct Exam < 10 EPITHELIAL CELLS/LPF >25 NEUTROPHILS/LPF PREDOMINANT ORGANISM: GRAM NEGATIVE RODS MIXED BACTERIAL MORPHOTYPES ALSO PRESENT ON GRAM STAIN. Culture YEAST, NOT SILVIO ALBICANS OR SILVIO DUBLINIENSIS HEAVY GROWTH NORMAL RESPIRATORY ROSEANNA SCANT GOWTH Report Status FINAL 07/17/2019[facility] HospitalComment on above:Performed By: #### CDP, PFA, CP, GLYHGB #### [employer] [facility] [place], [place] [phone] Baseball Pitcher: Savage Jacob, MDCulture, Blood 1on 50-16-1777Qvixqrd RequestsL HAND 6CCMercy [facility]- [place], KYSpecial RequestsR HAND 3CCMUniversity Hospitals Geneva Medical Center- [place], [place] Culture, Respiratoryon 35-05-2176ZtazqyfTNCPU, NOT SILVIO ALBICANS OR SILVIO DUBLINIENSIS HEAVY GROWTHAbnormDayton Children's Hospital- [place], KYCultureNORMAL RESPIRATORY ROSEANNA SCANT GOWTHMUniversity Hospitals Geneva Medical Center- [place], KYDirect ExamNegativeAbnormDayton Children's Hospital- [place], KYDirect Exam>25 NEUTROPHILS/LPFMUniversity Hospitals Geneva Medical Center- [place], KYDirect ExamMIXED BACTERIAL MORPHOTYPES ALSO PRESENT ON GRAM STAIN.AbnormalUniversity Hospitals Ahuja Medical Center- [place], [place] Direct Exam< 10 EPITHELIAL CELLS/LPFMUniversity Hospitals Geneva Medical Center- [place], KYInterpretation and review of laboratory resultsAbnoSumma Health [facility], KYSpecial RequestsNOT REPORTEDMercy [facility], KYSpecimen Description.SUCTIONED SPUTUMMercy Health Kings [facility], KYMagnesiumon 75-24-3391Dpmkvdwfd [Mass/Vol]2.1 mg/dLNormal1.6-2.6Mer[facility] Community Hospital Of San BernardinoComment on above:Performed By: #### CDP, PFA, CP, GLYHGB #### [employer] [address] [place], [place] [id number] Baseball Pitcher: Savage Jacob MDMagnesium [Mass/Vol]2.1 mg/dL1.6 - 2.6 mg/dL [facility], KYOtheron 76-70-2830TubzecoAS GROWTH 6 DAYSMercy Health [facility], KYSpecimen Description.BLOODMercy Health Kings [facility], KYInterpretation and review of laboratory resultsAbnormDayton Children's Hospital- [place], KYPOC Glucose Fingerstickon 78-97-1762Ddgfgnqabvsmnx and review of laboratory resultsAbnormDayton Children's Hospital- [place], KYPOC Djtwtab600 mg/mWCgww38 - 105 mg/dLUniversity Hospitals Ahuja Medical Center- [place], KYInterpretation and review of laboratory resultsAbnormDayton Children's Hospital- [place], KYPOC Ffyigtq846 mg/dL High65 - 105 mg/dLMercy Health [facility], KYInterpretation and review of laboratory resultsAbnormHolzer Hospital, KYPO Umeshpx690 mg/lHLuwr00 - 105 mg/dLMercy Health [facility], KYInterpretation and review of laboratory resultsAbnormalMercy Health [facility], KYPOC Exrsbpw011 mg/hLBvee39 - 105 mg/dLMercy Health Kings [facility], KYPOCT Glucoseon 87-29-5603ZLE Gqjmtab194 mg/lWKgld65 - 100 mg/dLMercy Health [facility], KYPT on 99-27-2430ZGL Coag (PPP) [Relative time]1.1 {INR}NormalAdena Fayette Medical CenterComment on above:Result Comment: Therapeutic Range: Moderate Anticoagulant Intensity: INR = 2.0-3.0 High Anticoagulant Intensity: INR = 2.5-3.5Performed By: #### CDP, PFA, CP, GLYHGB #### [employer] [address] [place], [place] [id number] Baseball Pitcher: RIGO Barahona Coag (PPP) [Time]11.4 sNormal9.0-12.0A[facility] Fayette Medical CenterComment on above:Performed By: #### CDP, PFA, CP, GLYHGB #### [employer] [address] [place], [place] [id number] Baseball Pitcher: Ric Barahonaime-INRon 01-71-3407PWB Coag (PPP) [Relative time]1.1 {INR}[facility], KYPT Coag (PPP) [Time]11.4 [facility], KYXR CHEST PORTABLEon 01-59-2496RJ CHEST PORTABLEEXAMINATION: ONE XRAY VIEW OF THE CHEST 07/17/2019 [...] Signed by: Morro Wheeler MD 07/17/19 Final resultNoUniversity Hospitals [facility], [facility], [facility], MNAPTMount Graham Regional Medical Center 21-17-2277hSZQ Coag (Bld) [Time]57.8 s High20.5-30.5Adena Fayette Medical CenterComment on above:Performed By: #### CDP, PFA, CP, GLYHGB #### [employer] [address] [place] [address] Baseball Pitcher: Shalom Barahona Coag (Bld) [Time]57.8 [facility], KYInterpretation and review of laboratory resultsAbnoSumma Health [facility] - [facility], KYaPTT Coag (Bld) [Time]49.3 [facility]0.5-30.[address] [place] [address] Comment on above:Performed By: #### CDP, PFA, CP, GLYHGB #### [employer] [address] [place] [address] Baseball Pitcher: Shalom Barahona Coag (Bld) [Time]49.3 [facility], KYInterpretation and review of laboratory resultsAbWilson Memorial Hospital, KYaPTT Coag (Bld) [Time]46.7 [facility]0.5-30.[address] [place] [address] Comment on above:Performed By: #### CDP, PFA, CP, GLYHGB #### [employer] [address] [place] [address] Baseball Pitcher: Shalom Barahona (Bld) [Time]46.7 [facility], MNInterpretation and review of laboratory resultsAbnormalUniversity Hospitals Ahuja [facility]- [place], MNArterial Blood Gas, POCon 76-65-5028Wzlbs TestNOT APPLICABLEMerShriners Hospitals for Children- [place], PDKNA934.0Mer Health- [place], KYModePRVCMerc Health- [place], KYNegative Base Excess, ArtNOT REPORTEDUniversity Hospitals Ahuja [facility] Center- [place], KYO2 Device/Flow/%Adult VentilatorMerShriners Hospitals for Children- [place], [facility] KVN942.5 mmol/LHigh21 - 28 mmol/LMohiohealth grady memorial hospital Health- [place], MNPOC O2 SAT97 %94 - 98 %[facility]- [place], [facility] rZD842.3[facility]- [place], [facility] pCO2 TempNOT REPORTEDmm HgWayne Hospital [facility]- [place], [facility] pH7.509HighMer [facility]- [place], [facility] pH Temp NOT REPORTEDMer Health- [place], [facility] PO280.5LowWayne Hospital [facility]- [place], [facility] pO2 Temp NOT REPORTEDmm HgWayne Hospital Health- [place], KYPositive Base Excess, Ztz6CxxcGxhet Health- [place], KYPt TempNOT REPORTEDUniversity [facility]als [facility]- [place], MNSample SiteArterial LineUniversity Hospitals Ahuja Medical Center- [place], KYTCO2 (calc), Art32 mmol/LHigh22 - 29 mmol/LMohiohealth grady [facility] Health- [place], [place] BLOOD BANK SPECIMENon [id number] Bank SpecimenNOT REPORTEDUniversity Hospitals Ahuja [facility]- [place], MNBasic Metabolic Panelon 05-74-8427Zawwi gap [Moles/Vol]14 mmol/L9 - 17 mmol/L [facility]- [place], KYBun/Cre RatioNOT REPORTEDMer Health- [place], KYCalcium [Mass/Vol]8.4 mg/dLLow8.6 - 10.4 mg/dLWayne Hospital Health- [place], KYChloride [Moles/Vol]99 mmol/L98 - 107 mmol/LMbarberton citizens hospitaly Health- [place], KYCO2 [Moles/Vol]26 mmol/L20 - 31 mmol/L [facility]- [place], KYCreatinine [Mass/Vol]1.26 mg/dLHigh0.5 - 0.9 mg/dLWayne Hospital Health- [place], KYGFR Ftfjpohu80 mL/minLow>60[facility], MNGFR Comment [facility], KYGFR Non- Bwwkreky85 mL/minLow>60[facility], [place] GFR StagingNOT REPORTEDMercy Health [facility], KYGlucose [Mass/Vol]259 mg/mNVgoo67 - 99 mg/dLMercy Health [facility], MNInterpretation and review of laboratory results AbnormalMercy Health [facility], KYPotassium [Moles/Vol]3.9 mmol/L3.7 - 5.3 mmol/LMMercy Health [facility], KYSodium [Moles/Vol]139 mmol/L135 - 144 mmol/[facility] [place] Urea nitrogen [Mass/Vol]26 mg/dLHigh8 - 23 mg/dLMercy Health [facility], KYBasic Metabolic Profon 07-16-2019(cont.)NormalAdena Fayette Medical CenterComment on above:Result Comment: Average GFR for 70 or more years old: 75 mL/min/1.73sq m Chronic Kidney Disease: <60 mL/min/1.73sq m Kidney failure: <15 mL/min/1.73sq m eGFR calculated using average adult body mass. Additional eGFR calculator available at: http://www.[employer]vantage/multiple_crcl_2012.htmPerformed By: #### CDP, PFA, CP, GLYHGB #### [employer] [address] [place] [address] Baseball Pitcher: Savage Jacob MDAnion gap [Moles/Vol]14 mmol/LNormal9-17A[facility]ayette Medical CenterComment on above:Performed By: #### CDP, PFA, CP, GLYHGB #### [employer] [address] [place] [address] Baseball Pitcher: Savage Jacob MDCalcium [Mass/Vol]8.4 mg/dLLow8.6-10.4A[facility] Fayette Medical CenterComment on above:Performed By: #### CDP, PFA, CP, GLYHGB #### [employer] [address] [place] [address] Baseball Pitcher: CASEY Barahonahloride [Moles/Vol]99 mmol/AMzkznm27-888VzbwlAdena Fayette Medical CenterComment on above:Performed By: #### CDP, PFA, CP, GLYHGB #### [facility] [address] [place] [address] Baseball Pitcher: Savage Jacob MDCO2 [Moles/Vol]26 mmol/RHqdiel98-06HkxkpAdena Fayette Medical CenterComment on above:Performed By: #### CDP, PFA, CP, GLYHGB #### [address] [address] Baseball Pitcher: CASEY Barahonareatinine [Mass/Vol]1.26 mg/dLHigh0.50-0.90 [facility]ayette Medical CenterComment on above:Performed By: #### CDP, PFA, CP, GLYHGB #### [address] [address] Baseball Pitcher: Savage Jacob MDGFR, Amer51 mL/minLow>60[facility]ayette Medical CenterComment on above:Performed By: #### CDP, PFA, CP, GLYHGB #### [facility] [address] [place] [address] Baseball Pitcher: Savage Jacob MDGFR,non Amer42 mL/minLow>60[facility] Medical CenterComment on above:Performed By: #### CDP, PFA, CP, GLYHGB #### [facility] [address] [place] [address] Baseball Pitcher: Savage Jacob MDGlucose [Mass/Vol]259 mg/uLVovq57-78UzwpaKeck Hospital of USCComment on above:Performed By: #### CDP, PFA, CP, GLYHGB #### [facility] [address] [place] [address] Baseball Pitcher: Savage Jacob MDPotassium [Moles/Vol]3.9 mmol/LNormal3.7-5.3 [facility] Medical CenterComment on above:Performed By: #### CDP, PFA, CP, GLYHGB #### [facility] [address] [place] [address] Baseball Pitcher: ZANA Barahonaodium [Moles/Vol]139 mmol/NEylepz804-320AmlpzAdena Fayette Medical CenterComment on above:Performed By: #### CDP, PFA, CP, GLYHGB #### [facility] [address] [place] [address] Baseball Pitcher: Savage Jacob MDUrea nitrogen [Mass/Vol]26 mg/dLHigh8-23A[facility] Medical CenterComment on above:Performed By: #### CDP, PFA, CP, GLYHGB #### [facility] [address] [place] [address] Baseball Pitcher: FELICITY Barahona/CRE CyrusOT REPORTEDNormal9-20[facility] Medical CenterComment on above:Performed By: #### CDP, PFA, CP, GLYHGB #### [facility] [address] [place] [address] Baseball Pitcher: ZANA Barahonataging:NOT REPORTEDNormalAdena Fayette Medical CenterComment on above:Performed By: #### CDP, PFA, CP, GLYHGB #### [facility] [address] [place] [address] Baseball Pitcher: Savage Jacob MDBlood Bank Specimenon 32-41-2886Cgwdd Bank SpecimenNOT REPORTEDNormalAdena Fayette Medical CenterCBCon 07-16-2019 Erythrocyte distribution width (RBC) [Ratio]14.9 %High11.8-14.4A[facility]ayette Medical CenterComment on above:Performed By: #### CDP, PFA, CP, GLYHGB #### [facility] [address] [place] [address] [phone] Baseball Pitcher: Savage Jacob MDHematocrit (Bld) [Volume fraction]22.7 %Low 36.3-47.1MKeck Hospital of USCComment on above:Performed By: #### CDP, PFA, CP, GLYHGB #### [address] [id number] Baseball Pitcher: Savage Jacob MDHemoglobin (Bld) [Mass/Vol]7.0 g/dLCritically low11.9-15.1MKeck Hospital of USCComment on above:Performed By: #### CDP, PFA, CP, GLYHGB #### [place] [address] Baseball Pitcher: ALISSA BarahonaCH (RBC) [Entitic mass]28.1 woFvrcvf10.2-33.5 [facility] Medical CenterComment on above:Performed By: #### CDP, PFA, CP, GLYHGB #### [place] [address] Baseball Pitcher: JAIME BarahonaC (RBC) [Mass/Vol]30.8 g/mWFszhkf10.4-34.8 [facility] CenterComment on above:Performed By: #### CDP, PFA, CP, GLYHGB #### [place] [address] Baseball Pitcher: ALISSA BarahonaCV (RBC) [Entitic vol]91.2 iSPqvvga34.6-102.9 [facility] Medical CenterComment on above:Performed By: #### CDP, PFA, CP, GLYHGB #### [address] [address] Baseball Pitcher: Savage Jacob MDNRBC Automated0.4 per 100 WBCHigh0.0Adena Fayette Medical CenterComment on above:Performed By: #### CDP, PFA, CP, GLYHGB #### [facility] [place] [address] Baseball Pitcher: Daniel Barahona mean volume (Bld) [Entitic vol]10.1 fL Normal8.1-13.5Adena Fayette Medical CenterComment on above:Performed By: #### CDP, PFA, CP, GLYHGB #### [facility] [address] [place] [address] Baseball Pitcher: Taylor Barahonatejimbo (Bld) [#/Vol]218 10*3/kQOadhkt208-175 [facility] CenterComment on above:Performed By: #### CDP, PFA, CP, GLYHGB #### [address] [address] Baseball Pitcher: ISABELLE BarahonaBC (Bld) [#/Vol]2.49 10*6/uLLow3.95-5.11A[facility] Fayette Medical CenterComment on above:Performed By: #### CDP, PFA, CP, GLYHGB #### [address] [address] Baseball Pitcher: Savage Jacob MDWBC (Bld) [#/Vol]19.4 10*3/uLHigh3.5-11.3MKeck Hospital of USCComment on above:Performed By: #### CDP, PFA, CP, GLYHGB #### [facility] [address] [place] [address] Baseball Pitcher: Savage Jacob MDErythrocyte distribution width (RBC) [Ratio]14.9 %High11.8 - 14.4 %[facility], KYHematocrit (Bld) [Volume fraction]22.7 % Low36.3 - 47.1 %[facility], KYHemoglobin (Bld) [Mass/Vol]7.0 g/dL Critically low11.9 - 15.1 g/dLMercy Health [facility], KYInterpretation and review of laboratory resultsAbnoParkwood HospitalH (RBC) [Entitic mass]28.1 pg 25.2 - 33.5 pgUK HealthcareHC (RBC) [Mass/Vol]30.8 g/dL28.4 - 34.8 g/dL UK HealthcareV (RBC) [Entitic vol]91.2 fL82.6 - 102.9 [place], KYPlatelet mean volume (Bld) [Entitic vol]10.1 fL8.1 - 13.5 fLQueen Anne, KYPlatelets (Bld) [#/Vol]218 10*3/uLMercy Health [facility], MNRBC (Bld) [#/Vol] 2.49 10*6/uLLow3.95 - 5.11 m/[place], KYWBC (Bld) [#/Vol]0.4 10*3/uL High0.0 per 100 WBCQueen Anne, KYWBC (Bld) [#/Vol]19.4 10*3/uLHighMercy Health [facility], MNInf Dis Interventionon 71-72-4351Xphmzihqpkfh:Expand Providence Milwaukie HospitalComment on above:Performed By: #### CDP, PFA, CP, GLYHGB #### [employer] [facility] [place] [address] Baseball Pitcher: Savage Jacob MDInfectious Disease Interventionon 07-16-2019 InterventionExpand Empiric CoverageQueen Anne, KYMRI BRAIN W WO CONTRASTon 04-57-4322UUS BRAIN W WO CONTRASTEXAMINATION: MRI OF THE BRAIN WITHOUT AND WITH [...] TECHNOLOGIST PROVIDED HISTORY: encephalopathy, deficits FINDINGS: INTRACRANIAL STRUCTURES/VENTRICLES: Ventricles are stable in size and configuration. [...] facet hypertrophic changes are noted. There is zrcm-ev-hooihpvc right greater than left foraminal narrowing. C4-5: [...] a broad-based central and left paracentral disc protrusion/herniation. There is upward migration of extruded disc [...] Signed by: Jaimee Avila MD 07/16/19 Final resultNormalMercy Community Hospital Of San BernardinoMRI CERVICAL SPINE WO CONTRAST on 30-33-5021SMS CERVICAL SPINE WO CONTRASTEXAMINATION: MRI OF THE BRAIN WITHOUT AND WITH [...] TECHNOLOGIST PROVIDED HISTORY: encephalopathy, deficits FINDINGS: INTRACRANIAL STRUCTURES/VENTRICLES: Ventricles are stable in size and configuration. [...] facet hypertrophic changes are noted. There is yhfa-pi-aznpcmfx right greater than left foraminal narrowing. C4-5: [...] a broad-based central and left paracentral disc protrusion/herniation. There is upward migration of extruded disc [...] Signed by: Jaimee Avila MD 07/16/19 Final resultNormalMercy Community Hospital Of San BernardinoMagnesiumon 07-16-2019 Magnesium [Mass/Vol]2.0 mg/dLNormal1.6-2.6[facility] Comment on above:Performed By: #### CDP, PFA, CP, GLYHGB #### [employer] [address] [place], [place] [id number] Baseball Pitcher: Miles Barahonagnesium [Mass/Vol]2.0 mg/dL1.6 - 2.6 mg/dL [facility], KYOtheron 64-50-7164FkvjkMercy Health [facility], KYMer[facility], [place] [facility], KYInterpretation and review of laboratory resultsAbnoSumma Health Wadsworth - [facility], KYPO Glucose Fingerstickon 54-61-0988Rmwdxeaznkkkuf and review of laboratory resultsAbnoSumma Health Wadsworth - Rittman [facility] Center, KYPOC Lajltcm501 mg/qNCvvo60 - 105 mg/dLMercy Health [facility], KYInterpretation and review of laboratory resultsAbAkron Children's Hospital, KYPOC Pkhrltm767 mg/gCWlth76 - 105 mg/dLMercy Health [facility], [place] Interpretation and review of laboratory resultsAbnoSumma Health Wadsworth - [facility]itt[facility] Center, KYPOC Bhowcao580 mg/kSRvwt67 - 105 mg/dLMercy Health [facility], KYInterpretation and review of laboratory resultsAbnoSumma Health Wadsworth - [facility]itt[facility] Center, KYPOC Vqqasqo150 mg/dASvmz43 - 105 mg/dLMercy Health [facility], KYPOCT Glucoseon 67-81-0916RJZ Rqwexgd844 mg/rAQrar16 - 100 mg/dLMercy Health [facility], KYPTon 25-25-9024DZK Coag (PPP) [Relative time]1.1 {INR}NormalAdena Fayette Medical CenterComment on above:Result Comment: Therapeutic Range: Moderate Anticoagulant Intensity: INR = 2.0-3.0 High Anticoagulant Intensity: INR = 2.5-3.5Performed By: #### CDP, PFA, CP, GLYHGB #### [employer] [address] [place] [address] Baseball Pitcher: RIGO Barahona Coag (PPP) [Time]11.9 sNormal9.0-12.0A[facility] Fayette Medical CenterComment on above:Performed By: #### CDP, PFA, CP, GLYHGB #### [employer] [address] [place] [address] Baseball Pitcher: HALEY Barahonahosphoruson 00-21-1844Uzgfkddlz [Mass/Vol]3.0 mg/dL2.6 - 4.5 mg/dLMercy Health Kings [facility], KYPhosphorus, Inorg.on 07-16-2019 Phosphorus, Inorg.3.0 mg/dLNormal2.6-4.5A[facility] Medical CenterComment on above:Performed By: #### CDP, PFA, CP, GLYHGB #### [employer] [address] [place], [place] [address] Baseball Pitcher: HALEY Barahonarotime-INRon 48-10-5408CMV Coag (PPP) [Relative time]1.1 {INR}[facility], KYPT Coag (PPP) [Time]11.9 [facility], KYType + Screenon 56-52-5761Cmpv + ScreenSample Expiration 07/19/2019,2359 Arm Band Number [id number] ABO/Rh(D) A POSITIVE Antibody Screen POSITIVE Antibody Ident Anti-E Present Anti-c Present NASREEN, Anti-IgG Viky Serum NEGATIVE Antigen Type,Patient Negative for E Antigen Negative for Cortes(B) Antigen Negative for c Antigen Unit Number [id number] Blood Component Type Leukocyte Reduced Red Cell Unit Division 00 Status of Unit REL FROM ALLOC Transfusion Status DO NOT ISSUE FOR TRANSFUSION Crossmatch Result INCOMPATIBLE Unit Number [id number] Blood Component Type Leukocyte Reduced Red Cell Unit Division 00 Status of Unit REL FROM ALLOC Transfusion Status DO NOT ISSUE FOR TRANSFUSION Crossmatch Result INCOMPATIBLE Unit Number [id number] Blood Component Type Leukocyte Reduced Red Cell Unit Division 00 Status of Unit TRANSFUSED Transfusion Status OK TO TRANSFUSE Crossmatch Result COMPATIBLE Unit Number [id number] Blood Component Type Leukocyte Reduced Red Cell Unit Division 00 Status of Unit REL FROM ALLOC Transfusion Status OK TO TRANSFUSE Crossmatch Result COMPATIBLE Unit Number [id number] Blood Component Type Leukocyte Reduced Red Cell Unit Division 00 Status of Unit REL FROM ALLOC Transfusion Status OK TO TRANSFUSE Crossmatch Result COMPATIBLENormalAdena Fayette Medical CenterComment on above:Performed By: #### CDP, PFA, CP, GLYHGB #### [employer] [facility] [place] [id number] Baseball Pitcher: WHITNEY Barahona CHEST PORTABLEon 48-33-6149SJ CHEST PORTABLE EXAMINATION: ONE XRAY VIEW OF [...] Signed by: Cyril Warner MD 07/16/19 Final resultNormalAdena Fayette Medical CenterXR CHEST PORTABLEEXAMINATION: ONE XRAY VIEW OF THE CHEST 07/16/2019 [...] Signed by: Caro Hutchinson MD 07/16/19 Final resultNoUniversity Hospitals [facility], [facility], [facility], [facility], [facility], [facility], KYAMMONIAon 28-96-3878Loihntx (P) [Mass/Vol]41 umol/L11 - 51 umol/L [facility], KYAPTMount Graham Regional [facility] 39-58-7784rRFX Coag (Bld) [Time]49.1 [facility] Hospitalh20.5-30.5 [facility] Medical CenterComment on above:Performed By: #### CDP, PFA, CP, GLYHGB #### [facility] [address] [place] [address] [id number] Baseball Pitcher: Savage Jacob MDaPTT Coag (Bld) [Time]sCritically high20.5-30.5 [facility] CenterComment on above:Performed By: #### CDP, PFA, CP, GLYHGB #### [employer] [address] [place] [address] [phone] Baseball Pitcher: Savage Jacob MDaPTT Coag (Bld) [Time]49.1 [facility], KYInterpretation and review of laboratory resultsAbWilson Memorial Hospital, KYaPTT Coag (Bld) [Time]sCritically [facility], KYInterpretation and review of laboratory resultsAbWilson Memorial Hospital, KYaPTT Coag (Bld) [Time] 52.6 sHigh20.5-30.5A[facility]ayette Medical CenterComment on above:Performed By: #### CDP, PFA, CP, GLYHGB #### [employer] [address] [place] [address] [id number] Baseball Pitcher: Savage Jacob MDaPTT Coag (Bld) [Time]52.6 [facility], KYInterpretation and review of laboratory resultsAbnormCommunity Regional Medical Center [place], KYAmmoniaon 26-05-5126Kmdxtqr (P) [Mass/Vol]41 umol/RTyhmch78-63CitzrAdena Fayette Medical CenterComment on above:Performed By: #### CDP, PFA, CP, GLYHGB #### [facility] [address] [place] [address] Baseball Pitcher: Fabiana Barahonaeriaada Blood Gas, POCon 28-18-6243Mcsjg Test NOT APPLICABLEMer[facility] Health [facility], AJIFX967.0[facility], MNInterpretation and review of laboratory resultsAbnormHolzer Hospital, MNModePRVCMMercy Health [facility], KYNegative Base Excess, ArtNOT REPORTEDMercy Health [facility], MNO2 Device/Flow/% Adult VentilatorMercy Health Kings [facility], [facility] MEV377.4 mmol/LHigh21 - 28 mmol/[facility] [place], [facility] O2 SAT96 %94 - 98 %[facility], [facility] nQL145.2MMercy Health [facility], [facility] pCO2 TempNOT REPORTEDmm HgMercy Health [facility], [facility] pH7.491High [facility], [facility] pH TempNOT REPORTEDMercy Health [facility], [facility] PO272.4Low [facility], [facility] pO2 TempNOT REPORTEDmm HgMercy Health [facility], MNPositive Base Excess, Pfv3AcpwXpappMer[facility] Health [facility], KYPt TempNOT [facility], [place] Sample SiteArterial LineMercy Health [facility], KYTCO2 (calc), Art33 mmol/LHigh22 - 29 mmol/[facility]- [place], MNBASIC METABOLIC PANELon 34-93-4419Pbazy gap [Moles/Vol]11 mmol/L9 - 17 mmol/LMUniversity Hospitals [facility]- [place], KYBun/Cre RatioNOT REPORTED [facility], MNCalcium [Mass/Vol]7.9 mg/dLLow8.6 - 10.4 mg/dLUniversity Hospitals Ahuja Medical Center- [place], KYChloride [Moles/Vol]99 mmol/L98 - 107 mmol/LMercy Health- [place], KYCO2 [Moles/Vol]27 mmol/L20 - 31 mmol/LMercy Health- [place], KYCreatinine [Mass/Vol]1.22 mg/dLHigh0.5 - 0.9 mg/dLMercy Health- [place], KYGFR Fiihwcyr44 mL/minLow>60 [facility] [place], KYGFR CommentMercy Health- [place], KYGFR Non- Tkqeirbt57 mL/minLow>60[facility]- [place], KYGFR StagingNOT REPORTEDMer Health- [place], [place] Glucose [Mass/Vol]307 mg/qDBkse94 - 99 mg/dLMercy Health- [place], KYInterpretation and review of laboratory resultsAbnormalMercy Health- [place], KYPotassium [Moles/Vol]3.5 mmol/LLow3.7 - 5.3 mmol/LMer[facility] Health- [place], KYSodium [Moles/Vol] 137 mmol/L135 - 144 mmol/LMercy Health- [place], KYUrea nitrogen [Mass/Vol]23 mg/dL8 - 23 mg/dLMercy Health- [place], KYBasic Metabolic Panelon 09-81-7050Sppwl gap [Moles/Vol]13 mmol/L9 - 17 mmol/LMercy Health- [place], KYBun/Cre RatioNOT REPORTED [facility]- [place], KYCalcium [Mass/Vol]8.5 mg/dLLow8.6 - 10.4 mg/dLMercy Health- [place], KYChloride [Moles/Vol]98 mmol/L98 - 107 mmol/LMercy Health- [place], KYCO2 [Moles/Vol]28 mmol/L20 - 31 mmol/LMercy Health- [place], KYCreatinine [Mass/Vol]1.17 mg/dLHigh0.5 - 0.9 mg/dLMercy Health- [place], KYGFR Ceqbhqhb86 mL/minLow>60 [facility] [place], KYGFR CommentMercy Health- [place], KYGFR Non- Sqebnahn10 mL/minLow>60[facility]- [place], KYGFR StagingNOT REPORTEDMer Health- [place], [place] Glucose [Mass/Vol]294 mg/uUOqdm44 - 99 mg/dLMercy Health- [place], KYInterpretation and review of laboratory resultsAbnormalMercy Health- [place], KYPotassium [Moles/Vol]3.5 mmol/LLow3.7 - 5.3 mmol/LMMercy Health [facility], KYSodium [Moles/Vol] 139 mmol/L135 - 144 mmol/LMMercy Health [facility], KYUrea nitrogen [Mass/Vol]23 mg/dL8 - 23 mg/dLMercy Health [facility], KYBasic Metabolic Profon 07-15-2019(cont.)Normal [facility] CenterComment on above:Result Comment: Average GFR for 70 or more years old: 75 mL/min/1.73sq m Chronic Kidney Disease: <60 mL/min/1.73sq m Kidney failure: <15 mL/min/1.73sq m eGFR calculated using average adult body mass. Additional eGFR calculator available at: http://www.[employer].com/multiple_crcl_2012.htmPerformed By: #### CDP, PFA, CP, GLYHGB #### [facility] [address] [place] [address] Baseball Pitcher: Savage Jacob MDAnion gap [Moles/Vol]11 mmol/LNormal9-17A[facility] Medical CenterComment on above:Performed By: #### CDP, PFA, CP, GLYHGB #### [employer] [address] [place] [address] Baseball Pitcher: CASEY Barahonaalcium [Mass/Vol]7.9 mg/dLLow8.6-10.4A[facility] Medical CenterComment on above:Performed By: #### CDP, PFA, CP, GLYHGB #### [employer] [address] [place] [address] Baseball Pitcher: CASEY Barahonahloride [Moles/Vol]99 mmol/ORwkffd89-550FgaftAdena Fayette Medical CenterComment on above:Performed By: #### CDP, PFA, CP, GLYHGB #### [employer] [address] [place] [address] Baseball Pitcher: Savage Madoff, MDCO2 [Moles/Vol]27 mmol/LLvvmwd14-61AirbbAdena Fayette Medical CenterComment on above:Performed By: #### CDP, PFA, CP, GLYHGB #### [address] [address] Baseball Pitcher: CASEY Barahonareatinine [Mass/Vol]1.22 mg/dLHigh0.50-0.90 [facility] CenterComment on above:Performed By: #### CDP, PFA, CP, GLYHGB #### [place] [address] Baseball Pitcher: Savage Jacob MDGFR, Amer53 mL/minLow>60[facility] Medical CenterComment on above:Performed By: #### CDP, PFA, CP, GLYHGB #### [place] [address] Baseball Pitcher: SALLY Barahona,non Amer44 mL/minLow>60[facility] CenterComment on above:Performed By: #### CDP, PFA, CP, GLYHGB #### [facility] [address] [place] [address] Baseball Pitcher: Savage Jacob MDGlucose [Mass/Vol]307 mg/pFGvni56-71OosxqKeck Hospital of USCComment on above:Performed By: #### CDP, PFA, CP, GLYHGB #### [facility] [address] [place] [address] Baseball Pitcher: Savage Jacob MDPotassium [Moles/Vol]3.5 mmol/LLow3.7-5.3MKeck Hospital of USCComment on above:Performed By: #### CDP, PFA, CP, GLYHGB #### [facility] [address] [place] [address] Baseball Pitcher: Savage Jacob MDSodium [Moles/Vol]137 mmol/JKwjpgc400-839CgakfAdena Fayette Medical CenterComment on above:Performed By: #### CDP, PFA, CP, GLYHGB #### [facility] [address] [place] [address] Baseball Pitcher: Savage Jacob MDUrea nitrogen [Mass/Vol]23 mg/dLNormal8-23A[facility] Medical CenterComment on above:Performed By: #### CDP, PFA, CP, GLYHGB #### [facility] [address] [place] [address] Baseball Pitcher: FELICITY Barahona/CRE CyrusOT REPORTEDNormal9-20[facility] CenterComment on above:Performed By: #### CDP, PFA, CP, GLYHGB #### [facility]Near[facility] [address] [place] [address] Baseball Pitcher: ZANA Barahonataging:NOT REPORTEDrmalAdena Fayette Medical CenterComment on above:Performed By: #### CDP, PFA, CP, GLYHGB #### [employer] [address] [place] [address] Baseball Pitcher: Savage Jacob MD(cont.)[facility] Comment on above:Result Comment: Average GFR for 70 or more years old: 75 mL/min/1.73sq m Chronic Kidney Disease: <60 mL/min/1.73sq m Kidney failure: <15 mL/min/1.73sq m eGFR calculated using average adult body mass. Additional eGFR calculator available at: http://www.[employer].com/multiple_crcl_2012.htmPerformed By: #### CDP, PFA, CP, GLYHGB #### [facility] [address] [place] [address] Baseball Pitcher: Chayito Barahona gap [Moles/Vol]13 mmol/LNormal9-17[facility] Medical CenterComment on above:Performed By: #### CDP, PFA, CP, GLYHGB #### [facility] [address] [place] [address] Baseball Pitcher: Savage Jacob MDCalcium [Mass/Vol]8.5 mg/dLLow8.6-10.4[facility] Medical CenterComment on above:Performed By: #### CDP, PFA, CP, GLYHGB #### [facility] [address] [place] [address] Baseball Pitcher: Savage Jacob MDChloride [Moles/Vol]98 mmol/TVyqwxr77-316CgysaAdena Fayette Medical CenterComment on above:Performed By: #### CDP, PFA, CP, GLYHGB #### [facility] [address] [place] [address] Baseball Pitcher: Savage Jacob MDCO2 [Moles/Vol]28 mmol/EIyhxyp68-15XbqezAdena Fayette Medical CenterComment on above:Performed By: #### CDP, PFA, CP, GLYHGB #### [address] [address] Baseball Pitcher: Savage Jacob MDCreatinine [Mass/Vol]1.17 mg/dLHigh0.50-0.90 [facility] CenterComment on above:Performed By: #### CDP, PFA, CP, GLYHGB #### [facility] [address] [place] [address] Baseball Pitcher: SALLY Barahona, Amer55 mL/minLow>60[facility] Medical CenterComment on above:Performed By: #### CDP, PFA, CP, GLYHGB #### [facility] [address] [place] [address] Baseball Pitcher: SALLY Barahona,non Amer46 mL/minLow>60[facility] Medical CenterComment on above:Performed By: #### CDP, PFA, CP, GLYHGB #### [facility] [place] [address] Baseball Pitcher: Savage Jacob MDGlucose [Mass/Vol]294 mg/mMVcpa29-70CbklaKeck Hospital of USCComment on above:Performed By: #### CDP, PFA, CP, GLYHGB #### [facility] [address] [place] [address] Baseball Pitcher: HALEY Barahonaotassium [Moles/Vol]3.5 mmol/LLow3.7-5.3MKeck Hospital of USCComment on above:Performed By: #### CDP, PFA, CP, GLYHGB #### [facility] [address] [place] [address] Baseball Pitcher: ZANA Barahonaodium [Moles/Vol]139 mmol/WCrijsn263-362OdvtiAdena Fayette Medical CenterComment on above:Performed By: #### CDP, PFA, CP, GLYHGB #### [facility] [address] [place] [address] Baseball Pitcher: Savage Jacob MDUrea nitrogen [Mass/Vol]23 mg/dLNormal8-23A[facility] Medical CenterComment on above:Performed By: #### CDP, PFA, CP, GLYHGB #### [facility] [address] [place] [address] Baseball Pitcher: FELICITY Barahona/CRE RatioNOT REPORTEDNormal9-20[facility] Medical CenterComment on above:Performed By: #### CDP, PFA, CP, GLYHGB #### [facility] [address] [place] [address] Baseball Pitcher: ZANA Barahonataging:NOT REPORTEDNormalAdena Fayette Medical CenterComment on above:Performed By: #### CDP, PFA, CP, GLYHGB #### [facility] [address] [place] [address]7 Baseball Pitcher: Ulysses Barahona 08-93-7912Sqslwxugrsj distribution width (RBC) [Ratio]15.0 %High11.8-14.4[facility]ayette Medical CenterComment on above:Performed By: #### CDP, PFA, CP, GLYHGB #### [address] [address] Baseball Pitcher: Savage Jacob MDHematocrit (Bld) [Volume fraction]23.8 %Low 36.3-47.1MKeck Hospital of USCComment on above:Performed By: #### CDP, PFA, CP, GLYHGB #### [place] [address] Baseball Pitcher: Savage Jacob MDHemoglobin (Bld) [Mass/Vol]7.3 g/dLLow11.9-15.1 [facility] CenterComment on above:Performed By: #### CDP, PFA, CP, GLYHGB #### [facility] [address] [place] [address] Baseball Pitcher: ALISSA BarahonaCH (RBC) [Entitic mass]29.0 khTezqdl77.2-33.5 [facility] Medical CenterComment on above:Performed By: #### CDP, PFA, CP, GLYHGB #### [address] [address] Baseball Pitcher: ALISSA BarahonaCHC (RBC) [Mass/Vol]30.7 g/lLAcrdrt56.4-34.8 [facility] CenterComment on above:Performed By: #### CDP, PFA, CP, GLYHGB #### [facility] [address] [place] [address] Baseball Pitcher: ALISSA BarahonaCV (RBC) [Entitic vol]94.4 uIAnpxic12.6-102.9 [facility] CenterComment on above:Performed By: #### CDP, PFA, CP, GLYHGB #### [address] [address] Baseball Pitcher: Savage Jacob MDNRBC Automated0.2 per 100 WBCHigh0.0A[facility] Fayette Medical CenterComment on above:Performed By: #### CDP, PFA, CP, GLYHGB #### [address] [address] Baseball Pitcher: Daniel Barahona mean volume (Bld) [Entitic vol]10.6 fL Normal8.1-13.5A[facility]ayette Medical CenterComment on above:Performed By: #### CDP, PFA, CP, GLYHGB #### [address] [address] Baseball Pitcher: Taylor Barahonatejimbo (Bld) [#/Vol]233 10*3/nBMeaebj654-048 [facility] CenterComment on above:Performed By: #### CDP, PFA, CP, GLYHGB #### [address] [address] Baseball Pitcher: ISABELLE BarahonaBC (Bld) [#/Vol]2.52 10*6/uLLow3.95-5.11A[facility] Medical CenterComment on above:Performed By: #### CDP, PFA, CP, GLYHGB #### [address] [address] Baseball Pitcher: Savage Jacob MDWBC (Bld) [#/Vol]22.0 10*3/uLHigh3.5-11.3MKeck Hospital of USCComment on above:Performed By: #### CDP, PFA, CP, GLYHGB #### [facility] [address] [place] [address] Baseball Pitcher: Savage Jacob MDErythrocyte distribution width (RBC) [Ratio]15.0 %High11.8 - 14.4 %[place], KYHematocrit (Bld) [Volume fraction]23.8 % Low36.3 - 47.1 %[place], KYHemoglobin (Bld) [Mass/Vol]7.3 g/dLLow11.9 - 15.1 g/dLQueen Anne, KYInterpretation and review of laboratory results AbnormalMercy Health [facility], MNMCH (RBC) [Entitic mass]29.0 pg25.2 - 33.5 pgMercy Health Kings [facility], MNMCHC (RBC) [Mass/Vol]30.7 g/dL28.4 - 34.8 g/dLQueen [place], [place] MCV (RBC) [Entitic vol]94.4 fL82.6 - 102.9 fLQueen Anne, KYPlatelet mean volume (Bld) [Entitic vol]10.6 fL8.1 - 13.5 fLMercy Health Kings Mills Hospital, MNPlatelets (Bld) [#/Vol]233 10*3/uLMercy Health Kings [facility] Hospital, MNRBC (Bld) [#/Vol]2.52 10*6/uLLow3.95 - 5.11 m/[facility], MNWBC (Bld) [#/Vol]22.0 10*3/uLHighMercy Health Kings Mills Hospital, MNWBC (Bld) [#/Vol]0.2 10*3/uLHigh0.0 per 100 WBCQueen Anne, [place] Erythrocyte distribution width (RBC) [Ratio]15.1 %High11.8-14.4A[facility] Medical CenterComment on above:Performed By: #### CDP, PFA, CP, GLYHGB #### [employer] [address] [place] [address] Baseball Pitcher: Savage Jacob MDHematocrit (Bld) [Volume fraction]23.1 %Low 36.3-47.1MKeck Hospital of USCComment on above:Performed By: #### CDP, PFA, CP, GLYHGB #### [address] [address] Baseball Pitcher: Savage Jacob MDHemoglobin (Bld) [Mass/Vol]7.2 g/dLLow11.9-15.1 [facility] CenterComment on above:Performed By: #### CDP, PFA, CP, GLYHGB #### [address] [address] Baseball Pitcher: ALISSA BarahonaCH (RBC) [Entitic mass]28.5 pyTiqemf92.2-33.5 [facility] CenterComment on above:Performed By: #### CDP, PFA, CP, GLYHGB #### [address] [address] Baseball Pitcher: JAIME BarahonaC (RBC) [Mass/Vol]31.2 g/iQPhrvcy53.4-34.8 [facility] CenterComment on above:Performed By: #### CDP, PFA, CP, GLYHGB #### [address] [address] Baseball Pitcher: ALSISA BarahonaCV (RBC) [Entitic vol]91.3 sSAihyas45.6-102.9 [facility] CenterComment on above:Performed By: #### CDP, PFA, CP, GLYHGB #### [address] [address] Baseball Pitcher: Savage Jacob MDNRBC Automated0.3 per 100 WBCHigh0.0A[facility]ayette Medical CenterComment on above:Performed By: #### CDP, PFA, CP, GLYHGB #### [address] [address] Baseball Pitcher: HALEY Barahonalatelet mean volume (Bld) [Entitic vol]9.9 fL Normal8.1-13.5A[facility]ayette Medical CenterComment on above:Performed By: #### CDP, PFA, CP, GLYHGB #### [facility] [address] [place] [address] Baseball Pitcher: Rico Barahona (Bld) [#/Vol]224 10*3/sVEykxij303-511 [facility] CenterComment on above:Performed By: #### CDP, PFA, CP, GLYHGB #### [facility] [address] [place] [address] Baseball Pitcher: ISABELLE BarahonaBC (Bld) [#/Vol]2.53 10*6/uLLow3.95-5.11[facility] Medical CenterComment on above:Performed By: #### CDP, PFA, CP, GLYHGB #### [facility] [address] [place] [address] Baseball Pitcher: Savage Jacob MDWBC (Bld) [#/Vol]22.4 10*3/uLHigh3.5-11.3MKeck Hospital of USCComment on above:Performed By: #### CDP, PFA, CP, GLYHGB #### [facility] [address] [place] [address] Baseball Pitcher: Savage Jacob MDErythrocyte distribution width (RBC) [Ratio]15.1 %High11.8 - 14.4 %[facility], KYHematocrit (Bld) [Volume fraction]23.1 % Low36.3 - 47.1 %[facility], KYHemoglobin (Bld) [Mass/Vol]7.2 g/dLLow11.9 - 15.1 g/dLMercy Health Kings Mills Hospital, MNInterpretation and review of laboratory results AbnormalMercy Health Kings Mills Hospital, [facility]AMIH (RBC) [Entitic mass]28.5 pg25.2 - 33.5 pgMercy Health Kings [facility] Hospital, [facility] MIAMIHC (RBC) [Mass/Vol]31.2 g/dL28.4 - 34.8 g/dLMercy Health Kings Mills Hospital, [place] MCV (RBC) [Entitic vol]91.3 fL82.6 - 102.9 fLMercy Health Kings Mills Hospital, KYPlatelet mean volume (Bld) [Entitic vol]9.9 fL8.1 - 13.5 fLMercy Health Kings Mills Hospital, KYPlatelets (Bld) [#/Vol]224 10*3/uLMercy Health Kings [facility] Hospital, KYRBC (Bld) [#/Vol]2.53 10*6/uLLow3.95 - 5.11 m/uLMercy Health [facility] Hospital, KYWBC (Bld) [#/Vol]22.4 10*3/uLHighMercy Health Kings Mills Hospital, KYWBC (Bld) [#/Vol]0.3 10*3/uLHigh0.0 per 100 WBCMercy Health Kings Mills Hospital, MNCORTISOLon 86-87-2811Myttlpbj90.9 ug/dLHigh2.7 - 18.4 ug/dLMercy Health Kings [facility], JERRYCortisol Collection InfoNOT REPORTEDMercy Health Kings [facility] Hospital, KYInterpretation and review of laboratory resultsAbnormHolzer Hospital, MNCortisolon 84-50-1869Aondpxco34.9 ug/dLHigh2.7-18.4A[facility] CenterComment on above:Result Comment: Cortisol Reference Range: AM 6.0-18.4 PM 2.7-10.5Performed By: #### CDP, PFA, CP, GLYHGB #### [employer] [address] [place] [address] Baseball Pitcher: CASEY Barahonaollection Info.NOT REPORTEDNoFort Hamilton HospitalComment on above:Performed By: #### CDP, PFA, CP, GLYHGB #### [employer] [address] [place] [address] Baseball Pitcher: JONG Barahona 12 Leadon 21-11-4669Ejwpkg Glaf47BSDUepseMercy Health [facility], KYP Yekg88xdebwehImtlk Health- [place], KYP-R Uqwmsnco578 [facility], KYQ-T Cmgxdldz554 msMercy Health- [place], KYQRS Tdijuakx83 msMercy Health- [place], KYQTc Calculation (Bazett)582 msMercy Health- [place], KYR Ajto05utyfdssChhvl Health- [place], KYT Hovi390jxwiffrLzewi Health- [place], KYVentricular Rgex18VIKBnpug Health- [place], KYMercy Health- [place], KYMercy Health- [place], KYAtrial Ltqo490VEJYicvd Health- [place], KYQ-T Fhwlfjnd639 msMercy Health- [place], KYQRS Djrlvtja19 msMercy Health- [place], [place] QTc Calculation (Bazett)447 msMercy Health- [place], KYR Smsr39pnldecrTyprx Health- [place], KYT [place]-129degreesMercy Health- [place], KYVentricular Kgrx420JXAGwotr Health- [place], KYMercy Health- [place], KYMercy Health- [place], KYMagnesiumon 08-79-9874Dmvownocp [Mass/Vol]2.0 mg/dLNormal1.6-2.6Mer[facility] Community Hospital Of San BernardinoComment on above:Performed By: #### CDP, PFA, CP, GLYHGB #### [facility] [address] [place] [address] Baseball Pitcher: Savage Jacob, MDMagnesium [Mass/Vol]2.0 mg/dL1.6 - 2.6 mg/dL [facility], MNPO Glucose Fingerstickon 99-51-4431Awdjldbhejiyji and review of laboratory resultsAbnoProMedica [facility]lower Hospital [place], KYPOC Apkolui704 mg/dLHigh 65 - 105 mg/dLMercy Health [facility], KYInterpretation and review of laboratory resultsAbnormCommunity Regional Medical Center [place], KYPOC Vznlbrq247 mg/mAInym64 - 105 mg/dLMercy Health Kings [facility], KYInterpretation and review of laboratory resultsAbnormSandhills Regional Medical Center Health- [place], KYPOC Ndquxvj328 mg/bVYcqx69 - 105 mg/dLMercy Health [facility], [place] Interpretation and review of laboratory resultsAbnormSandhills Regional Medical Center Health- [place], MNPOC Oqizuqv532 mg/fZIwit87 - 105 mg/dLWayne Hospital Health [place], KYPTon 40-23-3137HBL Coag (PPP) [Relative time]1.1 {INR}NormalAdena Fayette Medical CenterComment on above:Result Comment: Therapeutic Range: Moderate Anticoagulant Intensity: INR = 2.0-3.0 High Anticoagulant Intensity: INR = 2.5-3.5Performed By: #### CDP, PFA, CP, GLYHGB #### [employer] [address] [place] [address] Baseball Pitcher: RIGO Barahona Coag (PPP) [Time]11.6 sNormal9.0-12.0[facility] Medical CenterComment on above:Performed By: #### CDP, PFA, CP, GLYHGB #### [employer] [address] [place] [address] Baseball Pitcher: Ric Barahonaime-INRon 50-14-3274EBN Coag (PPP) [Relative time]1.1 {INR}[facility], MNPT Coag (PPP) [Time]11.6 [facility], MNT3, FREEon 50-44-8415Xmyc T3 [Mass/Vol]1.27 pg/mLLow2.02 - 4.43 pg/mLMercy Health [facility], MNInterpretation and review of laboratory resultsAbnormalMercy Health Kings [facility], MNT3, Freeon 58-72-2647Qayu T3 [Mass/Vol]1.27 pg/mLLow2.02-4.43A[facility] Medical CenterComment on above:Performed By: #### CDP, PFA, CP, GLYHGB #### [employer] [address] [place] [address] [id number] Baseball Pitcher: PRATIK Barahona4, FREEon 85-37-6177Ylrvbaqgs, Free1.02 ng/dL 0.93 - 1.7 ng/dLQueen [place], KYTS without Reflexon 00-70-1806IAB Qn4.27 m[IU]/LMGlady, KYThyroid Stim. Horm.on 50-49-0777KCN Qn4.27 m[IU]/L Normal0.30-5.00[facility] Medical CenterComment on above:Performed By: #### CDP, PFA, CP, GLYHGB #### [employer] [address] [place] [address] Baseball Pitcher: Savage Jacob MDThyroxine Freeon 80-12-6888Zwrcoqivg, Free1.02 ng/dLNormal0.93-1.70[facility] Medical CenterComment on above:Performed By: #### CDP, PFA, CP, GLYHGB #### [employer] [address] [place] [address] Baseball Pitcher: Shahram Barahona 04-79-5426hNXO Coag (Bld) [Time]55.5 s High20.5-30.5A[facility] Medical CenterComment on above:Performed By: #### CDP, PFA, CP, GLYHGB #### [employer] [address] [place] [address] Baseball Pitcher: Shalom Barahona Coag (Bld) [Time]55.5 [facility], KYInterpretation and review of laboratory resultsAbnoSumma Health W[facility], KYaPTT Coag (Bld) [Time]50.9 sHigh20.5-30.5[facility] Comment on above:Performed By: #### CDP, PFA, CP, GLYHGB #### [employer] [address] [place] [address] Baseball Pitcher: Shalom Barahona Coag (Bld) [Time]50.9 [facility], KYInterpretation and review of laboratory resultsAbnoSumma Health Wadsworth - [facility]ittman [facility], KYaPTT Coag (Bld) [Time]59.0 sHigh20.5-30.5[facility] Comment on above:Performed By: #### CDP, PFA, CP, GLYHGB #### [employer] [address] [place] [address] Baseball Pitcher: Shalom Barahona Coag (raquel) [Time]59.0 sHigTrumbull Regional Medical Center Health- [place], MNInterpretation and review of laboratory resultsAbnormSandhills Regional Medical Center [facility]- [place], MNArterial Blood Gas, POCon 71-63-0536Adhui TestNOT APPLICABLEWayne Hospital Health- [place], XDXGJ724.0Mer [facility]- [place], KYModePRVercy Health- [place], KYNegative Base Excess, ArtNOT REPORTEDMer Health- [place], KYO2 Device/Flow/%Adult VentilatorMer Health- [place], KYPOC MZP429.3 mmol/LHigh21 - 28 mmol/LMercy Health- [place], MNPOC O2 SAT94 %94 - 98 %[facility]- [place], MNPOC eJU823.2[facility]- [place], MNPO pCO2 TempNOT REPORTEDmm HgMer Health- [place], MNPOC pH7.472HighMer Health- [place], MNPOC pH Temp NOT REPORTEDMer Health- [place], MNPOC PO266.5LowMer Health- [place], MNPOC pO2 Temp NOT REPORTEDmm HgMer Health- [place], MNPositive Base Excess, Lsr5NmiwXfxcr Health- [place], KYPt TempNOT REPORTEDMer Health- [place], MNSample SiteArterial LineMer Health- [place], KYTCO2 (calc), Art34 mmol/LHigh22 - 29 mmol/LMbarberton citizens hospitaly Health- [place], [place] Graham TestNOT APPLICABLEWayne Hospital Health- [place], ACDBX416.0[facility]- [place], [place] Interpretation and review of laboratory resultsAbnormalWayne Hospital Health- [place], KYMode PRVCMercy Health- [place], KYNegative Base Excess, ArtNOT REPORTEDWayne Hospital Health- [place], KYO2 Device/Flow/%Adult VentilatorMer Health- [place], MNPOC EYZ276.5 mmol/LHigh21 - 28 mmol/LMbarberton citizens hospitaly Health- [place], MNPOC O2 SAT94 %94 - 98 %[facility]- [place], MNPOC hOB507.2HighMer Health- [place], MNPOC pCO2 TempNOT REPORTEDmm HgMer Health- [place], MNPOC pH7.450[facility]- [place], KYPOC pH TempNOT REPORTEDMercy Health- [place], KYPOC PO270.8LowMer Health- [place], KYPOC pO2 TempNOT REPORTEDmm HgMer Health- [place], [place] Positive Base Excess, Buh6QnvgBdwgz Health- [place], KYPt TempNOT REPORTEDMercy Health- [place], KYSample SiteArterial LineMer Health- [place], KYTCO2 (calc), Art35 mmol/LHigh22 - 29 mmol/LMercy Health- [place], KYBasi Metabolic Panelon 07-14-2019 Anion gap [Moles/Vol]14 mmol/L9 - 17 mmol/LMercy Health- [place], KYBun/Cre RatioNOT REPORTEDMer Health- [place], KYCalcium [Mass/Vol]8.1 mg/dLLow8.6 - 10.4 mg/dLMer Health- [place], KYChloride [Moles/Vol]103 mmol/L98 - 107 mmol/LMercy Health- [place], [place] CO2 [Moles/Vol]27 mmol/L20 - 31 mmol/LMercy Health- [place], KYCreatinine [Mass/Vol] 1.16 mg/dLHigh0.5 - 0.9 mg/dLWayne Hospital Health- [place], KYGFR Nreqsybc68 mL/min Low>60[facility]- [place], KYGFR CommentMer Health- [place], KYGFR Non- Zpjjyczu63 mL/minLow>60[facility]- [place], KYGFR StagingNOT REPORTEDMer Health- [place], KYGlucose [Mass/Vol]239 mg/hMJpqs85 - 99 mg/dLWayne Hospital [facility]- [place], [place] Interpretation and review of laboratory resultsAbnormalMercy Health- [place], [place] Potassium [Moles/Vol]3.5 mmol/LLow3.7 - 5.3 mmol/LMercy Health- [place], KYSodium [Moles/Vol]144 mmol/L135 - 144 mmol/LMercy Health- [place], KYUrea nitrogen [Mass/Vol]22 mg/dL8 - 23 mg/dLWayne Hospital Health- [place], KYBasic Metabolic Profon 07-14-2019(cont.)[facility] Municipal HospitalComment on above:Result Comment: Average GFR for 70 or more years old: 75 mL/min/1.73sq m Chronic Kidney Disease: <60 mL/min/1.73sq m Kidney failure: <15 mL/min/1.73sq m eGFR calculated using average adult body mass. Additional eGFR calculator available at: http://www.[employer]/multiple_crcl_2012.htmPerformed By: #### CDP, PFA, CP, GLYHGB #### [facility] [address] [place] [address] Baseball Pitcher: Savage Jacob MDAnion gap [Moles/Vol]14 mmol/LNormal9-17[facility] CenterComment on above:Performed By: #### CDP, PFA, CP, GLYHGB #### [employer] [address] [place] [address] Baseball Pitcher: Savage Jacob MDCalcium [Mass/Vol]8.1 mg/dLLow8.6-10.4[facility] CenterComment on above:Performed By: #### CDP, PFA, CP, GLYHGB #### [facility] [address] [place] [address] Baseball Pitcher: Savage Jacob MDChloride [Moles/Vol]103 mmol/RRbvmpv27-688EnxuxAdena Fayette Medical CenterComment on above:Performed By: #### CDP, PFA, CP, GLYHGB #### [employer] [address] [place] [address] Baseball Pitcher: Savage Jacob MDCO2 [Moles/Vol]27 mmol/OBqzibb85-25VugmgAdena Fayette Medical CenterComment on above:Performed By: #### CDP, PFA, CP, GLYHGB #### [employer] [address] [place] [address] Baseball Pitcher: Savage Jacob MDCreatinine [Mass/Vol]1.16 mg/dLHigh0.50-0.90 [facility] CenterComment on above:Performed By: #### CDP, PFA, CP, GLYHGB #### [employer] [address] [place] [address] Baseball Pitcher: Savage Jacob MDGFR, Amer56 mL/minLow>60MerProvidence Tarzana Medical CenterComment on above:Performed By: #### CDP, PFA, CP, GLYHGB #### [facility] [address] [place] [address] Baseball Pitcher: Savage Jacob MDGFR,non Amer46 mL/minLow>60MerProvidence Tarzana Medical CenterComment on above:Performed By: #### CDP, PFA, CP, GLYHGB #### [address] [address] Baseball Pitcher: Savage Jacob MDGlucose [Mass/Vol]239 mg/zQSann82-38DxpojKeck Hospital of USCComment on above:Performed By: #### CDP, PFA, CP, GLYHGB #### [address] [address] Baseball Pitcher: HALEY Barahonaotassium [Moles/Vol]3.5 mmol/LLow3.7-5.3MKeck Hospital of USCComment on above:Performed By: #### CDP, PFA, CP, GLYHGB #### [address] [address] Baseball Pitcher: ZANA Barahonaodium [Moles/Vol]144 mmol/FYfsxrz913-758ZbpweAdena Fayette Medical CenterComment on above:Performed By: #### CDP, PFA, CP, GLYHGB #### [facility] [address] [place] [address] Baseball Pitcher: Savage Jacob MDUrea nitrogen [Mass/Vol]22 mg/dLNormal8-23MerProvidence Tarzana Medical CenterComment on above:Performed By: #### CDP, PFA, CP, GLYHGB #### [facility] [address] [place] [address] Baseball Pitcher: FELICITY Barahona/CRE RatioNOT REPORTEDNormal9-20[facility] CenterComment on above:Performed By: #### CDP, PFA, CP, GLYHGB #### [facility] [address] [place] [address] Baseball Pitcher: ZANA Barahonataging:NOT REPORTEDNormalAdena Fayette Medical CenterComment on above:Performed By: #### CDP, PFA, CP, GLYHGB #### [facility] [address] [place] [address] Baseball Pitcher: Ulysses Barahona 99-60-2476Rsebjwlvpuz distribution width (RBC) [Ratio]15.2 %High11.8-14.4[facility] CenterComment on above:Performed By: #### CDP, PFA, CP, GLYHGB #### [facility] [employer] [address] [place] [address] Baseball Pitcher: Savage Jacbo MDHematocrit (Bld) [Volume fraction]28.9 %Low 36.3-47.1MKeck Hospital of USCComment on above:Performed By: #### CDP, PFA, CP, GLYHGB #### [employer] [address] [place] [address] Baseball Pitcher: Savage Jacob MDHemoglobin (Bld) [Mass/Vol]9.0 g/dLLow11.9-15.1 [facility] CenterComment on above:Performed By: #### CDP, PFA, CP, GLYHGB #### [facility] [address] [place] [address] Baseball Pitcher: ALISSA BarahonaCH (RBC) [Entitic mass]28.7 njHgptpg58.2-33.5 [facility] CenterComment on above:Performed By: #### CDP, PFA, CP, GLYHGB #### [address] [address] Baseball Pitcher: ALISSA BarahonaCHC (RBC) [Mass/Vol]31.1 g/nTQnivyu85.4-34.8 [facility] CenterComment on above:Performed By: #### CDP, PFA, CP, GLYHGB #### [address] [address] Baseball Pitcher: ALISSA BarahonaCV (RBC) [Entitic vol]92.0 qHGdzrsm97.6-102.9 [facility] CenterComment on above:Performed By: #### CDP, PFA, CP, GLYHGB #### [address] [address] Baseball Pitcher: Savage Jacob MDNRBC Automated0.3 per 100 WBCHigh0.0A[facility]ayette Medical CenterComment on above:Performed By: #### CDP, PFA, CP, GLYHGB #### [address] [address] Baseball Pitcher: Daniel Barahona mean volume (Bld) [Entitic vol]9.4 fL Normal8.1-13.5A[facility] Medical CenterComment on above:Performed By: #### CDP, PFA, CP, GLYHGB #### [address] [address] Baseball Pitcher: Taylor Barahonatejimbo (Bld) [#/Vol]219 10*3/mFAvmkvv899-469 [facility] CenterComment on above:Performed By: #### CDP, PFA, CP, GLYHGB #### [address] [address] Baseball Pitcher: ISABELLE BarahonaBC (Bld) [#/Vol]3.14 10*6/uLLow3.95-5.11[facility] CenterComment on above:Performed By: #### CDP, PFA, CP, GLYHGB #### [employer] [address] [place], [place] [id number] Baseball Pitcher: Savage Jacob MDWBC (Bld) [#/Vol]18.9 10*3/uLHigh3.5-11.3[facility] Hospital Of San BernardinoComment on above:Performed By: #### CDP, PFA, CP, GLYHGB #### [employer] [address] [place], [place] [id number] Baseball Pitcher: Savage Jacob MDErythrocyte distribution width (RBC) [Ratio]15.2 %High11.8 - 14.4 %[facility], KYHematocrit (Bld) [Volume fraction]28.9 % Low36.3 - 47.1 %[facility], MNHemoglobin (Bld) [Mass/Vol]9.0 g/dLLow11.9 - 15.1 g/dLMercy Health Kings [facility], MNInterpretation and review of laboratory results AbnormalMercy Health [facility], [facility] (RBC) [Entitic mass]28.7 pg25.2 - 33.5 pgMercy Health Kings [facility], [facility]IHC (RBC) [Mass/Vol]31.1 g/dL28.4 - 34.8 g/dLMercy Health [facility], [place] MCV (RBC) [Entitic vol]92.0 fL82.6 - 102.9 fLMercy Health Kings [facility], MNPlatelet mean volume (Bld) [Entitic vol]9.4 fL8.1 - 13.5 fLMercy Health Kings [facility], KYPlatelets (Bld) [#/Vol]219 10*3/uLMercy Health [facility], KYRBC (Bld) [#/Vol]3.14 10*6/uLLow3.95 - 5.11 m/[facility], KYWBC (Bld) [#/Vol]0.3 10*3/uLHigh0.0 per 100 WBC [facility], KYWBC (Bld) [#/Vol]18.9 10*3/uLS[facility], KYK (Potassium)on [id number] [Moles/Vol]3.2 mmol/LLow3.7-5.3[facility] San BernardinoComment on above:Performed By: #### CDP, PFA, CP, GLYHGB #### [facility]Sc[facility] [address], [place] [id number] Baseball Pitcher: Savage Jacob MDMagnesiumon 18-73-1498Qojrbqsmw [Mass/Vol]2.0 mg/dLNormal1.6-2.6Mer[facility] Hospital Of San BernardinoComment on above:Performed By: #### CDP, PFA, CP, GLYHGB #### [facility] [address] [place], [place] [id number] Baseball Pitcher: Savage Jacob MDMagnesium [Mass/Vol]2.0 mg/dL1.6 - 2.6 mg/dL [facility], KYOtheron 48-81-5836Uvkogcyrcojgws and review of laboratory resultsAbWilson Memorial Hospital, [facility] Glucose Fingerstickon 07-14-2019 Interpretation and review of laboratory resultsAbWilson Memorial Hospital, [facility] Catxuxv940 mg/lHQhou77 - 105 mg/dLMercy Health [facility], KYInterpretation and review of laboratory resultsAbWilson Memorial Hospital, [facility] Kavluag837 mg/sQLbsq66 - 105 mg/dLMercy Health Kings [facility], KYInterpretation and review of laboratory results AbnormalMercy Health Kings [facility], [facility] Ehgdtjt305 mg/tJSlrn91 - 105 mg/dLMercy Health Kings [facility], KYInterpretation and review of laboratory resultsAbWilson Memorial Hospital, [facility] Eugcjui135 mg/qYSgac10 - 105 mg/dLMercy Health Kings [facility], KYPOCT Glucoseon 80-38-6815GGC Hufxpjn879 mg/iLJvrx23 - 100 mg/dLMercy Health [facility], KYPOTASSIUMon 36-04-9258Sqgctypzusjztr and review of laboratory resultsAbWilson Memorial Hospital, MNPotassium [Moles/Vol]3.2 mmol/LLow3.7 - 5.3 mmol/LMDoctors Hospital [place], KYPTon 05-60-0368PYG Coag (PPP) [Relative time]1.1 {INR}[facility] HospitalComment on above:Result Comment: Therapeutic Range: Moderate Anticoagulant Intensity: INR = 2.0-3.0 High Anticoagulant Intensity: INR = 2.5-3.5Performed By: #### CDP, PFA, CP, GLYHGB #### [employer] [address] [place], [place] [id number] Baseball Pitcher: HALEY BarahonaT Coag (PPP) [Time]11.1 sNormal9.0-12.0A[facility] Fayette Medical CenterComment on above:Performed By: #### CDP, PFA, CP, GLYHGB #### [employer] [address] [place], [place] [id number] Baseball Pitcher: Ric Barahonanovant health kernersville medical center-INRon 50-33-9973ZCN Coag (PPP) [Relative time]1.1 {INR}[facility], KYPT Coag (PPP) [Time]11.1 [facility], KYXR CHEST PORTABLEon 14-42-4743QJ CHEST PORTABLEEXAMINATION: ONE XRAY VIEW OF THE CHEST 07/14/2019 [...] Signed by: Kaylen Ying MD 07/14/19 Final resultNormalMarymount Hospital, [facility], [facility], MNAPTMount Graham Regional Medical Center 47-26-0116qNWF Coag (Bld) [Time]39.9 s High20.5-30.5A[facility] Fayette Medical CenterComment on above:Performed By: #### CDP, PFA, CP, GLYHGB #### [employer] [address] [place] [address] [id number] Baseball Pitcher: Savage Jacob MDaPTT Coag (Bld) [Time]39.9 [facility], KYInterpretation and review of laboratory resultsAbnoSumma Health [facility], KYaPTT Coag (Bld) [Time]56.3 sHigh20.5-30.5[facility] Comment on above:Result Comment: ADDED ONPerformed By: #### CDP, PFA, CP, GLYHGB #### [facility] [address] [place] [address] [phone] Baseball Pitcher: Shalom Barahona Coag (Bld) [Time]56.3 [facility], KYInterpretation and review of laboratory resultsAbnoSumma Health Wad[facility] - [facility]itt[facility], KYAnion Gap (Calc) POCon 77-67-2998Ncxmv gap [Moles/Vol]10 mmol/L7 - 16 mmol/L [facility], KYAnion gap [Moles/Vol]10 mmol/L7 - 16 mmol/LMMercy Health [facility], KYAnti-Thy Peroxidaseon 15-46-9411Maej-Thy Wesvnouhag98.7 IU/mLHigh0.0-35.0 [facility] CenterComment on above:Performed By: #### CDP, PFA, CP, GLYHGB #### [employer] [address] [place] [address] [id number] Baseball Pitcher: Rain Barahonal Blood Gas, POCon 55-18-0400Dbrul Test PositiveMercy Health Kings [facility] Hospital, WCBKL826.0[facility], KYInterpretation and review of laboratory resultsAbWilson Memorial Hospital, KYModePRVCMMercy Health [facility], KYNegative Base Excess, ArtNOT REPORTEDMercy Health- [place], KYO2 Device/Flow/% Adult VentilatorMercy Health- [place], MNPOC XTN177.8 mmol/LHigh21 - 28 mmol/LMercy Health- [place], MNPOC O2 SAT98 %94 - 98 %[facility]- [place], [facility] xER608.1HighMercy Health- [place], MNPOC pCO2 TempNOT REPORTEDmm HgMercy Health- [place], MNPOC pH7.423[facility]- [place], MNPOC pH TempNOT REPORTEDMercy Health- [place], MNPOC PO298.2[facility]- [place], [place]NPOC pO2 TempNOT REPORTEDmm HgMercy Health- [place], KYPositive Base Excess, Poh6JopvFsrta Health- [place], KYPt TempNOT REPORTEDMercy Health- [place], [place] Sample SiteArterial LineMercy Health- [place], KYTCO2 (calc), Art34 mmol/LHigh22 - 29 mmol/LMercy Health- [place], KYAllen TestNOT APPLICABLEMercy Health- [place], PASMF605.0 [facility]- [place], KYModePRVCMercy Health- [place], KYNegative Base Excess, ArtNOT REPORTEDMercy Health- [place], MNO2 Device/Flow/%Adult VentilatorMer Health- [place], [place] POC ULV801.0 mmol/LHigh21 - 28 mmol/LMercy Health- [place], [facility] O2 SAT97 %94 - 98 % [facility]- [place], MNPOC pHH434.0HighMer Health- [place], [facility] pCO2 TempNOT REPORTEDmm HgMercy Health- [place], [facility] pH7.414[facility]- [place], [facility] pH TempNOT REPORTEDMercy Health- [place], [facility] PO292.9[facility]- [place], MNPO pO2 TempNOT REPORTEDmm HgMercy Health- [place], KYPositive Base Excess, Nhc0IgykEbkdk Health- [place], KYPt TempNOT REPORTEDMercy Health- [place], MNSample SiteArterial LineMercy Health- [place], KYTCO2 (calc), Art34 mmol/LHigh22 - 29 mmol/LMercy Health- [place], KYAllen Test NOT APPLICABLEMercy Health- [place], QBCAI723.0[facility]- [place], KYModePRVC/PSMercy Health- [place], KYNegative Base Excess, ArtNOT REPORTEDMercy Health- [place], KYO2 Device/Flow/%Adult VentilatorMercy Health- [place], KYPOC OSL735.0 mmol/LHigh21 - 28 mmol/LMercy Health- [place], KYPOC O2 SAT99 %High94 - 98 %[facility]- [place], MNPOC lTW780.7HighMercy Health- [place], MNPOC pCO2 TempNOT REPORTEDmm HgMercy Health- [place], KYPOC pH7.391[facility]- [place], KYPOC pH TempNOT REPORTEDMercy Health- [place], KYPOC QO3226.0HighMercy Health- [place], MNPOC pO2 TempNOT REPORTEDmm HgMercy Health- [place], KYPositive Base Excess, Ati6VsieRztov Health- [place], KYPt TempNOT REPORTEDMer Health- [place], KYSample SiteArterial LineMer Health- [place], KYTCO2 (calc), Art34 mmol/LHigh22 - 29 mmol/LMercy Health- [place], MNBASI METABOLIC PANELon 07-13-2019 Bun/Cre RatioNOT REPORTEDMercy Health- [place], KYCO2 [Moles/Vol]30 mmol/L20 - 31 mmol/LMercy Health- [place], KYGFR Hhmesafs39 mL/minLow>60[facility]- [place], KYGFR CommentMer Health- [place], KYGFR Non- Qvpqyhlp74 mL/minLow>60[facility]- [place], KYGFR StagingNOT REPORTEDMer Health- [place], MNInterpretation and review of laboratory resultsAbnormalMer Health- [place], [facility] Metabolic Panelon 03-95-5804Ymmgs gap [Moles/Vol]14 mmol/L9 - 17 mmol/LMercy Health- [place], KYBun/Cre RatioNOT REPORTEDMercy Health- [place], KYCalcium [Mass/Vol]8.8 mg/dL8.6 - 10.4 mg/dLMercy Health- [place], KYChloride [Moles/Vol]101 mmol/L98 - 107 mmol/LMercy Health- [place], KYCreatinine [Mass/Vol]1.36 mg/dLHigh0.5 - 0.9 mg/dLMercy Health- [place], KYGFR Fwqzohvz84 mL/minLow>60[facility]- [place], KYGFR CommentMercy Health- [place], KYGFR Non- Anedvvdq70 mL/minLow>60[facility], KYGFR StagingNOT REPORTEDMercy Health [facility], KYGlucose [Mass/Vol]156 mg/oLLnvk42 - 99 mg/dLMercy Health [facility], KYInterpretation and review of laboratory resultsAbnormal [facility], KYPotassium [Moles/Vol]3.1 mmol/LLow3.7 - 5.3 mmol/LMMercy Health [facility], KYSodium [Moles/Vol]145 mmol/GCdff905 - 144 mmol/LMMer[facility] Health [facility], KYUrea nitrogen [Mass/Vol]26 mg/dLHigh8 - 23 mg/dLMercy Health [facility], KYBasic Metabolic Profon 65-76-3342XKQ, Amer53 mL/minLow>60[facility] Medical CenterComment on above:Performed By: #### CDP, PFA, CP, GLYHGB #### [employer] [facility] [address] [place] [address] Baseball Pitcher: Savage Jacob MDGFR,non Amer44 mL/minLow>60[facility] Medical CenterComment on above:Performed By: #### CDP, PFA, CP, GLYHGB #### [facility] [address] [place] [address] Baseball Pitcher: FELICITY Barahona/SHALINI BridgesOT REPORTEDNormal9-20[facility] Medical CenterComment on above:Performed By: #### CDP, PFA, CP, GLYHGB #### [facility] [address] [place] [address] Baseball Pitcher: ZANA Barahonataging:NOT REPORTEDNormalAdena Fayette Medical CenterComment on above:Performed By: #### CDP, PFA, CP, GLYHGB #### [facility] [address] [place] [address] Baseball Pitcher: Chayito Barahona gap [Moles/Vol]13 mmol/LNormal9-17[facility], KYComment on above:Performed By: #### CDP, PFA, CP, GLYHGB #### [facility] [address] [place] [address] Baseball Pitcher: Savage Jacob MDCalcium [Mass/Vol]8.6 mg/dLNormal8.6-10.4[facility], KYComment on above:Performed By: #### CDP, PFA, CP, GLYHGB #### [address] [address] Baseball Pitcher: Savage Jacob MDChloride [Moles/Vol]104 mmol/OJigdww81-658[facility]- [place], KYComment on above:Performed By: #### CDP, PFA, CP, GLYHGB #### [facility] [address] [place] [address] Baseball Pitcher: Saavge Jacob MDCreatinine [Mass/Vol]1.21 mg/dLHigh0.50-0.90 [facility], KYComment on above:Performed By: #### CDP, PFA, CP, GLYHGB #### [facility] [address] [place] [address] Baseball Pitcher: Savage Jacob MDGlucose [Mass/Vol]120 mg/nLZxtc47-29Fzdib [facility]- [place], KYComment on above:Performed By: #### CDP, PFA, CP, GLYHGB #### [facility] [address] [place] [address] Baseball Pitcher: Savage Jaocb MDPotassium [Moles/Vol]3.2 mmol/LLow3.7-5.3MMercy Health [facility], KYComment on above:Performed By: #### CDP, PFA, CP, GLYHGB #### [facility] [address] [place] [address] Baseball Pitcher: Savage Jacob MDSodium [Moles/Vol]147 mmol/OAvjf957-663DmutzDosher Memorial Hospital on above:Performed By: #### CDP, PFA, CP, GLYHGB #### [facility] [address] [place] [address] Baseball Pitcher: Savage Jacob MDUrea nitrogen [Mass/Vol]24 mg/dLHigh8-23[place], KYComuniversity of michigan health on above:Performed By: #### CDP, PFA, CP, GLYHGB #### [facility] [address] [place] [address] Baseball Pitcher: Savage Jacob MD(cont.)[facility] Comment on above:Result Comment: Average GFR for 70 or more years old: 75 mL/min/1.73sq m Chronic Kidney Disease: <60 mL/min/1.73sq m Kidney failure: <15 mL/min/1.73sq m eGFR calculated using average adult body mass. Additional eGFR calculator available at: http://www.LikeBetter.com/multiple_crcl_2012.htmPerformed By: #### CDP, PFA, CP, GLYHGB #### [facility] [address] [place] [address] Baseball Pitcher: Savage Jacob MDAnion gap [Moles/Vol]14 mmol/LNormal9-17[facility] Medical CenterComment on above:Performed By: #### CDP, PFA, CP, GLYHGB #### [facility] [address] [place] [address] Baseball Pitcher: Savage Jacob, MDCalcium [Mass/Vol]8.8 mg/dLNormal8.6-10.4[facility] Medical CenterComment on above:Performed By: #### CDP, PFA, CP, GLYHGB #### [facility] [address] [place] [address] Baseball Pitcher: Savage Jacob MDChloride [Moles/Vol]101 mmol/NNslrnf62-580YgpoiAdena Fayette Medical CenterComment on above:Performed By: #### CDP, PFA, CP, GLYHGB #### [facility] [address] [place] [address] Baseball Pitcher: Savage Jacob MDCO2 [Moles/Vol]30 mmol/UQcgezk25-28UchxkAdena Fayette Medical CenterComment on above:Performed By: #### CDP, PFA, CP, GLYHGB #### [address] [address] Baseball Pitcher: CASEY Barahonareatinine [Mass/Vol]1.36 mg/dLHigh0.50-0.90 [facility] Medical CenterComment on above:Performed By: #### CDP, PFA, CP, GLYHGB #### [address] [address] Baseball Pitcher: Savage Jacob MDGFR, Amer47 mL/minLow>60[facility] Medical CenterComment on above:Performed By: #### CDP, PFA, CP, GLYHGB #### [address] [address] Baseball Pitcher: Savage Jacob MDGFR,non Amer38 mL/minLow>60[facility] Medical CenterComment on above:Performed By: #### CDP, PFA, CP, GLYHGB #### [address] [address] Baseball Pitcher: aSvage Jacob MDGlucose [Mass/Vol]156 mg/xAAdbu49-58Xdbrx [facility] Hospital Of San BernardinoComment on above:Performed By: #### CDP, PFA, CP, GLYHGB #### [address] [address] Baseball Pitcher: Savage Jacob MDPotassium [Moles/Vol]3.1 mmol/LLow3.7-5.3Mbarberton citizens hospitaly [facility] Of San BernardinoComment on above:Performed By: #### CDP, PFA, CP, GLYHGB #### [facility] [address] [place] [address] Baseball Pitcher: ZANA Barahonaodium [Moles/Vol]145 mmol/EWher215-639EpbscAdena Fayette Medical CenterComment on above:Performed By: #### CDP, PFA, CP, GLYHGB #### [facility] [address] [place] [address] Baseball Pitcher: Sherie Barahona nitrogen [Mass/Vol]26 mg/dLHigh8-23[facility] Medical CenterComment on above:Performed By: #### CDP, PFA, CP, GLYHGB #### [facility] [address] [place] [address] Baseball Pitcher: FELICITY Barahona/SHALINI Ziegler REPORTEDNormal9-20[facility] Medical CenterComment on above:Performed By: #### CDP, PFA, CP, GLYHGB #### [facility] [address] [place] [address] Baseball Pitcher: ZANA Barahonataging:NOT REPORTEDLancaster Municipal HospitalComment on above:Performed By: #### CDP, PFA, CP, GLYHGB #### [facility] [address] [place] [address] Baseball Pitcher: CSAEY BarahonaO2 [Moles/Vol]30 mmol/LNwnees68-87[facility]- [place], KYComment on above:Performed By: #### CDP, PFA, CP, GLYHGB #### [facility] [address] [place] [address] Baseball Pitcher: CASEY BarahonaALCIUM, IONIC (POC)on 96-53-2679ALC Ionized Calcium1.14 mmol/LLow1.15 - 1.33 mmol/LMMercy Health [facility], KYPOC Ionized Calcium 1.16 mmol/L1.15 - 1.33 mmol/LMDoctors Hospital [place], KYCBCon 06-03-0826Fkforqwxheo distribution width (RBC) [Ratio]15.5 %High11.8-14.4[facility] Medical CenterComment on above:Performed By: #### CDP, PFA, CP, GLYHGB #### [facility] [address] [place] [address] Baseball Pitcher: Savage Jacob MDHematocrit (Bld) [Volume fraction]25.0 %Low 36.3-47.1MKeck Hospital of USCComment on above:Performed By: #### CDP, PFA, CP, GLYHGB #### [facility] [address] [place] [address] Baseball Pitcher: Savage Jacob MDHemoglobin (Bld) [Mass/Vol]7.7 g/dLLow11.9-15.1 [facility] CenterComment on above:Performed By: #### CDP, PFA, CP, GLYHGB #### [facility] [address] [place] [address] Baseball Pitcher: ALISSA BarahonaCH (RBC) [Entitic mass]28.4 baKzchai38.2-33.5 [facility] CenterComment on above:Performed By: #### CDP, PFA, CP, GLYHGB #### [facility] [address] [place] [address] Baseball Pitcher: JAIME BarahonaC (RBC) [Mass/Vol]30.8 g/hTHighsb19.4-34.8 [facility] CenterComment on above:Performed By: #### CDP, PFA, CP, GLYHGB #### [facility] [address] [place] [address] Baseball Pitcher: ALISSA BarahonaCV (RBC) [Entitic vol]92.3 qOJudfvx47.6-102.9 [facility] CenterComment on above:Performed By: #### CDP, PFA, CP, GLYHGB #### [employer] [address] [place] [address] Baseball Pitcher: Savage Jacob MDNRBC Automated0.5 per 100 WBCHigh0.0A[facility] Medical CenterComment on above:Performed By: #### CDP, PFA, CP, GLYHGB #### [address] [address] Baseball Pitcher: Taylor Barahonatelet mean volume (Bld) [Entitic vol]9.4 fL Normal8.1-13.5[facility] Medical CenterComment on above:Performed By: #### CDP, PFA, CP, GLYHGB #### [address] [address] Baseball Pitcher: HALEY Barahonalatelets (Bld) [#/Vol]278 10*3/zMZvcgxa408-263 [facility] CenterComment on above:Performed By: #### CDP, PFA, CP, GLYHGB #### [facility] [address] [place] [address] Baseball Pitcher: ISABELLE BarahonaBC (Bld) [#/Vol]2.71 10*6/uLLow3.95-5.11[facility] Medical CenterComment on above:Performed By: #### CDP, PFA, CP, GLYHGB #### [facility] [address] [place] [address] Baseball Pitcher: Savage Jacob MDWBC (Bld) [#/Vol]13.9 10*3/uLHigh3.5-11.3MKeck Hospital of USCComment on above:Performed By: #### CDP, PFA, CP, GLYHGB #### [facility] [address] [place] [address] Baseball Pitcher: Savage Jacob MDErythrocyte distribution width (RBC) [Ratio]15.5 %High11.8 - 14.4 %[place], KYHematocrit (Bld) [Volume fraction]25.0 % Low36.3 - 47.1 %[facility], MNHemoglobin (Bld) [Mass/Vol]7.7 g/dLLow11.9 - 15.1 g/dLDayton Children'S Hospital [place], MNInterpretation and review of laboratory results AbnormalMercy Health [facility], MNMCH (RBC) [Entitic mass]28.4 pg25.2 - 33.5 pgMercy Health Kings [facility], MNMCHC (RBC) [Mass/Vol]30.8 g/dL28.4 - 34.8 g/dLMercy Health [facility], [place] MCV (RBC) [Entitic vol]92.3 fL82.6 - 102.9 fLMercy Health Kings Mills Hospital, MNPlatelet mean volume (Bld) [Entitic vol]9.4 fL8.1 - 13.5 fLMercy Health Kings [facility], MNPlatelets (Bld) [#/Vol]278 10*3/uLMercy Health [facility], MNRBC (Bld) [#/Vol]2.71 10*6/uLLow3.95 - 5.11 m/uLMercy Health [facility], MNWBC (Bld) [#/Vol]0.5 10*3/uLHigh0.0 per 100 WBC [facility], MNWBC (Bld) [#/Vol]13.9 10*3/uLHighMercy Health Kings [facility] Hospital, [place] CHLORIDE (POC)on 38-47-6700PDN Qjvnlplf604 mmol/L98 - 107 mmol/[facility]- [place], MNPOC Ndmlesvt757 mmol/L98 - 107 mmol/[facility], MNCreatinine W/GFR Point of Careon 28-94-8434BCL Nisauae63 mL/minLow>60[facility]- [place], KYGFR CommentDayton Children'S Hospital [place], KYGFR Non- Immbfysh37 mL/minLow>60[facility] [place], MNPOC Creatinine1.38 mg/dLHigh0.51 - 1.19 mg/dLDayton Children'S Hospital [place], KYGFR Ewlzyjm21 mL/minLow>60[facility]- [place], KYGFR CommentDayton Children'S Hospital [place], MNGFR Non- Lwnonxgw95 mL/minLow>60[facility], KYPOC Creatinine1.38 mg/dL High0.51 - 1.19 mg/dLMercy Health Kings [facility], KYCult,Respiratoryon 07-13-2019 Cult,RespiratorySpecimen Description .TRACHEAL ASPIRATE Special Requests NOT REPORTED Direct Exam >25 NEUTROPHILS/LPF < 10 EPITHELIAL CELLS/LPF NO SIGNIFICANT PATHOGENS SEEN Culture NORMAL RESPIRATORY ROSEANNA LIGHT GROWTH Report Status FINAL 07/13/2019NormalMerProvidence Tarzana Medical CenterComment on above:Performed By: #### CDP, PFA, CP, GLYHGB #### [employer] [address] [place], [place] [id number] Baseball Pitcher: CASEY Barahonauk healthcare, Respiratoryon 34-66-4651GwkzlfqNOIPMP RESPIRATORY ROSEANNA LIGHT GROWTHMer[facility], KYDirect Exam< 10 EPITHELIAL CELLS/LPFMMer[facility] Health [facility], KYDirect ExamNO SIGNIFICANT PATHOGENS SEENMercy Health [facility], MNDirect Exam>25 NEUTROPHILS/LPFMMer[facility] Health [facility], KYSpecial Requests NOT REPORTEDMercy Health [facility], KYSpecimen Description.TRACHEAL ASPIRATEMercy Health [facility], KYHemoglobin and hematocrit, bloodon 07-41-4009LIY Hysaxdokxi26 %Low 36 - 46 %[facility], KYPOC Hemoglobin7.6 g/dLLow12 - 16 g/dLMercy Health Kings [facility], KYPOC Mjxsgnrkxo94 %Low36 - 46 %[facility], MNPOC Hemoglobin7.6 g/dL Low12 - 16 g/dLMercy Health Kings [facility] Hospital, KYLactic Acid, POCon 89-20-8253KHX Lactic Acid 0.40 mmol/LLow0.56 - 1.39 mmol/LMMer[facility] Health [facility], KYPOC Lactic Acid0.55 mmol/L Low0.56 - 1.39 mmol/LMMercy Health [facility], KYMagnesiumon 57-80-2670Ndxxigttc [Mass/Vol]2.0 mg/dLNormal1.6-2.6Mercy [facility] Hospital Of San BernardinoComment on above:Performed By: #### CDP, PFA, CP, GLYHGB #### [employer] [address] [place], [place] [phone] Baseball Pitcher: Miles Barahonagnesium [Mass/Vol]2.0 mg/dL1.6 - 2.6 mg/dL [facility], KYOtheron 59-88-5329SfdlqMercy Health [facility], KYInterpretation and review of laboratory resultsAbnoSumma Health [facility], KYInterpretation and review of laboratory resultsAbnoSumma Health [facility], MNPOC Glucose Fingerstick on 29-58-0314Rsogelydjocrxv and review of laboratory resultsAbnoSumma Health [facility] - [facility], KYPOC Zpaayqp945 mg/xFJlky22 - 105 mg/dLMercy Health [facility], [place] Interpretation and review of laboratory resultsAbnoSumma Health W[facility] - [facility], MNPOC Hwevrgu843 mg/eBEzqs29 - 105 mg/dLMercy Health [facility], MNInterpretation and review of laboratory resultsAbWilson Memorial Hospital, MNPO Yrjorwj185 mg/hLGgzn95 - 105 mg/dLMercy Health [facility], KYInterpretation and review of laboratory results AbnormalMercy Health [facility], KYPOC Dpxlkxo427 mg/qISkzw21 - 105 mg/dLMercy Health Kings [facility], KYPOCT Glucoseon 33-20-2045QFT Obkogvk880 mg/qBFbzr57 - 100 mg/dLMercy Health [facility], KYPOC Lxvofiq798 mg/yCKhdz83 - 100 mg/dLMercy Health [facility], [place] POTASSIUM (POC)on 46-23-4123IVF Potassium3.0 mmol/LLow3.5 - 4.5 mmol/[facility], MNPOC Potassium3.0 mmol/LLow3.5 - 4.5 mmol/[facility], KYPTon 10-48-4137UED Coag (PPP) [Relative time]1.1 {INR}NormalAdena Fayette Medical CenterComment on above:Result Comment: Therapeutic Range: Moderate Anticoagulant Intensity: INR = 2.0-3.0 High Anticoagulant Intensity: INR = 2.5-3.5Performed By: #### CDP, PFA, CP, GLYHGB #### [employer] [address] [place], [place] [id number] Baseball Pitcher: Savage Madoff, MDPT Coag (PPP) [Time]11.5 sNormal9.0-12.0A[facility] Medical CenterComment on above:Performed By: #### CDP, PFA, CP, GLYHGB #### [employer] [address] [place], [place] [id number] Baseball Pitcher: HALEY Barahonahosphoruson 70-79-7344Ofncwnjic [Mass/Vol]4.4 mg/dL2.6 - 4.5 mg/dLMercy Health Kings [facility] Hospital, KYPhosphorus, Inorg.on 07-13-2019 Phosphorus, Inorg.4.4 mg/dLNormal2.6-4.5A[facility] Medical CenterComment on above:Performed By: #### CDP, PFA, CP, GLYHGB #### [employer] [address] [place] [address] [id number] Baseball Pitcher: Christo Barahona-INRon 28-91-2674QVK Coag (PPP) [Relative time]1.1 {INR}[facility] [place], KYPT Coag (PPP) [Time]11.5 sMMercy Health [facility] Center, KYSODIUM (POC)on 19-85-1861WOC Chewqz052 mmol/L138 - 146 mmol/LMercy Health- [place], KYPOC Lzqkst320 mmol/L138 - 146 mmol/LMbarberton citizens hospitaly Health- [place], KYT3, Freeon 07-13-2019 Free T3 [Mass/Vol]1.76 pg/mLLow2.02-4.43[facility] Medical CenterComment on above:Performed By: #### CDP, PFA, CP, GLYHGB #### [employer] [address] [place], [place] [id number] Baseball Pitcher: Swati Barahona T3 [Mass/Vol]1.76 pg/mLLow2.02 - 4.43 pg/mL [facility], KYInterpretation and review of laboratory resultsAbnormHolzer Hospital, KYTHYROID PEROXIDASE ANTIBODYon 28-16-8014Qlovsohyhcqepd and review of laboratory resultsAbnormalMercy Health [facility], KYThyroid Peroxidase (Tpo) Ab 35.7HighMercy Health Kings [facility], KYThyroglobulin + ATAon 74-64-8943Cqxpwnwuvyeis95.7 ng/mLNormal0.0-63.4[facility] Medical CenterComment on above:Result Comment: Thyroglobulin (Tg) is measured by the Siemens Immulite 2000 method, which has a lower limit of quantification of 0.2 ng/mL. Tg results less than 0.2 ng/mL are consistent with the absence of thyroglobulin-producing thyroid tissue. Results obtained with any different assay methods or kits cannot be used interchangeably.Performed By: #### CDP, PFA, CP, GLYHGB #### [employer] [address] [place] [address] Baseball Pitcher: Savage Jacob MDThyroglobulin Ab Qn[IU]/mLNormal0.0-40.0Adena Fayette Medical CenterComment on above:Performed By: #### CDP, PFA, CP, GLYHGB #### [employer] [address] [place] [address] [id number] Baseball Pitcher: Savage Jacob MDThyroglobulin and anti-Thyroglobulin ABon 21-76-5600Fynecawewzswm12.7 ng/mL0 - 63.4 ng/mLMercy Health [facility], KYThyroglobulin Ab Qn[IU]/mLMercy Health Kings [facility], KYXR CHEST PORTABLEon 74-97-6409MQ CHEST PORTABLE EXAMINATION: ONE XRAY VIEW OF [...] Signed by: Antwon Abbott MD 07/13/19 Final resultNoUniversity Hospitals [facility], [facility], KYMer[facility], KYAPTTon 45-66-6281uNRF Coag (Bld) [Time]43.4 s High20.5-30.5A[facility] Fayette Medical CenterComment on above:Performed By: #### CDP, PFA, CP, GLYHGB #### [employer] [address] [place] [address] Baseball Pitcher: Shalom Barahona Coag (Bld) [Time]43.4 [facility], MNInterpretation and review of laboratory resultsAbWilson Memorial Hospital, KYaPTT Coag (Bld) [Time]31.5 sHigh20.5-30.5[facility] Comment on above:Performed By: #### CDP, PFA, CP, GLYHGB #### [employer] [address] [place] [address] Baseball Pitcher: Shalom Barahona Coag (Bld) [Time]31.5 [facility], KYInterpretation and review of laboratory resultsAbWilson Memorial Hospital, KYaPTT Coag (Bld) [Time]56.2 sHigh20.5-30.5[facility], KYComment on above: Performed By: #### CDP, PFA, CP, GLYHGB #### [employer] [address] [place] [address] Baseball Pitcher: Savage Jacob MDInterpretation and review of laboratory results [facility], KYAnion Gap (Calc) POCon 27-09-0485Clmet gap [Moles/Vol]11 mmol/L7 - 16 mmol/LMMercy Health [facility], KYArterial Blood Gas, POCon 44-22-9910Eogwl TestNOT REPORTEDWayne Hospital [facility]- [place], CKMWN304.0[facility]- [place], [place] Interpretation and review of laboratory resultsAbnormalWayne Hospital Health- [place], MNMode PRVCMercy Health- [place], KYNegative Base Excess, ArtNOT REPORTEDUniversity Hospitals [facility]hu[facility]- [place], MNO2 Device/Flow/%Adult VentilatorMer Health- [place], MNPOC XBH757.2 mmol/LHigh21 - 28 mmol/LMercy Health- [place], MNPO O2 SAT96 %94 - 98 %[facility]- [place], MNPO nRM711.0HighMer Health- [place], [facility] pCO2 TempNOT REPORTEDmm HgMer Health- [place], MNPOC pH7.384Mer [facility]- [place], MNPO pH TempNOT REPORTEDWayne Hospital [facility]- [place], [facility] PO286.5[facility]- [place], [facility] pO2 TempNOT REPORTEDmm HgWayne Hospital Health- [place], [place] Positive Base Excess, Rqu1YzqnGptda Health- [place], MNPt TempNOT REPORTEDWay[facility]- [place], [facility] Delanole SiteNOT REPORTEDWay[facility]- [place], MNTCO2 (calc), Art31 mmol/LHigh22 - 29 mmol/LMbarberton citizens hospitaly Health- [place], KYAllen TestNOT REPORTEDWay[facility] Hospital [facility]- [place], ALMNM092.0[facility]- [place], MNInterpretation and review of laboratory resultsAbnormDayton Children's Hospital- [place], MNModePRVBarberton Citizens Hospital Health- [place], [facility] CHERRY HILLegative Base Excess, ArtNOT REPORTEDWay[facility] Hospital [facility]- [place], MNO2 Device/Flow/%Adult VentilatorMer Health- [place], [facility] GFW480.2 mmol/LHigh21 - 28 mmol/LMbarberton citizens hospitaly Health- [place], [facility] O2 SAT97 %94 - 98 %[facility]- [place], MNPO gEC318.0Mer [facility]- [place], [facility] pCO2 TempNOT REPORTEDmm HgMer Health- [place], [facility] pH7.415Mer [facility]- [place], [facility] pH TempNOT REPORTEDWay[facility]- [place], [facility] PO287.2[facility]- [place], [facility] pO2 Temp NOT REPORTEDmm HgWayne Hospital [facility]- [place], MNPositive Base Excess, Kzx8Ahksx Health- [place], KYPt TempNOT REPORTEDMercy Health- [place], KYSample SiteNOT REPORTEDMercy Health- [place], KYTCO2 (calc), Art30 mmol/LHigh22 - 29 mmol/LMercy Health- [place], KYAllen Test NOT APPLICABLEMercy Health- [place], RFXDM210.0[facility]- [place], KYModePRVCMercy Health- [place], KYNegative Base Excess, ArtNOT REPORTEDMer Health- [place], KYO2 Device/Flow/%Adult VentilatorMercy Health- [place], MNPOC GPO412.2 mmol/LHigh21 - 28 mmol/LMercy Health- [place], MNPOC O2 SAT98 %94 - 98 %[facility]- [place], MNPOC pCO2 45.3[facility]- [place], MNPOC pCO2 TempNOT REPORTEDmm HgMercy Health- [place], MNPOC pH 7.418Mer [facility]- [place], MNPOC pH TempNOT REPORTEDMer Health- [place], MNPOC WM6440.0 [facility]- [place], MNPOC pO2 TempNOT REPORTEDmm HgMercy Health- [place], KYPositive Base Excess, Gwu4KtuoRdsel Health- [place], KYPt TempNOT REPORTEDMer Health- [place], [place] Sample SiteArterial LineMer Health- [place], KYTCO2 (calc), Art31 mmol/LHigh22 - 29 mmol/LMercy Health- [place], KYB12/Folate Panelon 12-81-9823Xottzqduo (Vitamin B12) [Mass/Vol]1313 pg/hIPmrp690-4432FrxzuAdena Fayette Medical CenterComment on above:Performed By: #### CDP, PFA, CP, GLYHGB #### [employer] [address] [place], [place] [id number] Baseball Pitcher: Francois Barahona Acid7.0 ng/mLNormal>4.8Adena Fayette Medical CenterComment on above:Performed By: #### CDP, PFA, CP, GLYHGB #### [employer] [address] [place], [place] [phone] Baseball Pitcher: Katie Barahona Metabolic Panelon 12-27-0761Nhhdm gap [Moles/Vol]13 mmol/L9 - 17 mmol/LMUniversity [facility]- [place], KYBun/Cre RatioNOT REPORTED [facility]- [place], KYCalcium [Mass/Vol]8.3 mg/dLLow8.6 - 10.4 mg/dLMercy Health Kings [facility] Hospital, KYChloride [Moles/Vol]107 mmol/L98 - 107 mmol/LMUniversity [facility]- [place], KYCO2 [Moles/Vol]27 mmol/L20 - 31 mmol/LMDoctors [facility] [place], KYCreatinine [Mass/Vol]1.2 mg/dLHigh0.5 - 0.9 mg/dLMercy Health Kings [facility] Hospital, KYGFR Tnitecvf01 mL/minLow>60 [facility] [place], KYGFR CommentDayton Children'S Hospital [place], KYGFR Non- Sdxpghbh15 mL/minLow>60[facility] [place], KYGFR StagingNOT REPORTEDMercy Health [facility], [place] Glucose [Mass/Vol]133 mg/nOKink30 - 99 mg/dLMercy Health Kings [facility], KYInterpretation and review of laboratory resultsAbnormalDayton Children'S Hospital [place], KYPotassium [Moles/Vol]3.4 mmol/LLow3.7 - 5.3 mmol/LMUniversity [facility]als [facility]- [place], KYSodium [Moles/Vol] 147 mmol/XUxaj531 - 144 mmol/[facility] [place], KYUrea nitrogen [Mass/Vol]28 mg/dLHigh8 - 23 mg/dLMercy Health Kings [facility], KYBasic Metabolic Profon 07-12-2019 (cont.)[facility] HospitalComment on above:Result Comment: Average GFR for 70 or more years old: 75 mL/min/1.73sq m Chronic Kidney Disease: <60 mL/min/1.73sq m Kidney failure: <15 mL/min/1.73sq m eGFR calculated using average adult body mass. Additional eGFR calculator available at: http://www.[employer]/multiple_crcl_2012.htmPerformed By: #### CDP, PFA, CP, GLYHGB #### [facility] [place] [id number] Baseball Pitcher: Savage Madoff, MDAnion gap [Moles/Vol]13 mmol/LNormal9-17Adena Fayette Medical CenterComment on above:Performed By: #### CDP, PFA, CP, GLYHGB #### [facility] [employer] [address] [place] [address] Baseball Pitcher: Savage Jacob MDCalcium [Mass/Vol]8.3 mg/dLLow8.6-10.4Adena Fayette Medical CenterComment on above:Performed By: #### CDP, PFA, CP, GLYHGB #### [facility] [employer] [address] [place] [address] Baseball Pitcher: Savage Jacob MDChloride [Moles/Vol]107 mmol/YCcuvom09-315RxschAdena Fayette Medical CenterComment on above:Performed By: #### CDP, PFA, CP, GLYHGB #### [facility] [employer] [address] [place] [address] Baseball Pitcher: Savage Jacob MDCO2 [Moles/Vol]27 mmol/VTwdfpj90-80LxuqcAdena Fayette Medical CenterComment on above:Performed By: #### CDP, PFA, CP, GLYHGB #### [facility] [employer] [address] [place] [address] Baseball Pitcher: Savage Jacob MDCreatinine [Mass/Vol]1.20 mg/dLHigh0.50-0.90 [facility]ayette Medical CenterComment on above:Performed By: #### CDP, PFA, CP, GLYHGB #### [facility] [employer] [address] [place] [address] Baseball Pitcher: SALLY Barahona, Amer54 mL/minLow>60A[facility] Medical CenterComment on above:Performed By: #### CDP, PFA, CP, GLYHGB #### [facility] [address] [place] [address] Baseball Pitcher: SALLY Barahona,non Amer44 mL/minLow>60A[facility]ayette Medical CenterComment on above:Performed By: #### CDP, PFA, CP, GLYHGB #### [facility] [address] [place] [address] Baseball Pitcher: Savage Jacob MDGlucose [Mass/Vol]133 mg/yHMhxs53-25ZowypKeck Hospital of USCComment on above:Performed By: #### CDP, PFA, CP, GLYHGB #### [facility] [address] [place] [address] Baseball Pitcher: HALEY Barahonaotassium [Moles/Vol]3.4 mmol/LLow3.7-5.3MKeck Hospital of USCComment on above:Performed By: #### CDP, PFA, CP, GLYHGB #### [place] [address] Baseball Pitcher: ZANA Barahonaodium [Moles/Vol]147 mmol/OFhpx368-823RqyujAdena Fayette Medical CenterComment on above:Performed By: #### CDP, PFA, CP, GLYHGB #### [facility] [address] [place] [address] Baseball Pitcher: Savage Jacob MDUrea nitrogen [Mass/Vol]28 mg/dLHigh8-23A[facility] Fayette Medical CenterComment on above:Performed By: #### CDP, PFA, CP, GLYHGB #### [place] [address] Baseball Pitcher: Savage Jacob MDBUN/CRE RatioNOT REPORTEDNormal9-20A[facility]ayette Medical CenterComment on above:Performed By: #### CDP, PFA, CP, GLYHGB #### [facility] [address] [place] [address] Baseball Pitcher: ZANA Barahonataging:NOT REPORTEDNormalAdena Fayette Medical CenterComment on above:Performed By: #### CDP, PFA, CP, GLYHGB #### [facility] [address] [place] [address] Baseball Pitcher: CASEY BarahonaALCIUM, IONIC (POC)on 14-54-6455JHW Ionized Calcium1.17 mmol/L1.15 - 1.33 mmol/LMercy [facility], KYCBCon 07-12-2019 Erythrocyte distribution width (RBC) [Ratio]15.6 %High11.8-14.4Aden[facility] Fayette Medical CenterComment on above:Performed By: #### CDP, PFA, CP, GLYHGB #### [facility] [address] [place] [address] Baseball Pitcher: Savage Jacob MDHematocrit (Bld) [Volume fraction]25.4 %Low 36.3-47.1MKeck Hospital of USCComment on above:Performed By: #### CDP, PFA, CP, GLYHGB #### [facility] [employer] [address] [place] [address] Baseball Pitcher: Savage Jacob MDHemoglobin (Bld) [Mass/Vol]7.9 g/dLLow11.9-15.1 [facility] Medical CenterComment on above:Performed By: #### CDP, PFA, CP, GLYHGB #### [facility] [employer] [address] [place] [address] Baseball Pitcher: ALISSA BarahonaCH (RBC) [Entitic mass]28.6 xiPzxkpg45.2-33.5 [facility] Medical CenterComment on above:Performed By: #### CDP, PFA, CP, GLYHGB #### [facility] [employer] [address] [place] [address] Baseball Pitcher: JAIME BarahonaC (RBC) [Mass/Vol]31.1 g/pNZhdclc31.4-34.8 [facility] Medical CenterComment on above:Performed By: #### CDP, PFA, CP, GLYHGB #### [address] [address] Baseball Pitcher: ALISSA BarahonaCV (RBC) [Entitic vol]92.0 zOFwdiej25.6-102.9 [facility] Medical CenterComment on above:Performed By: #### CDP, PFA, CP, GLYHGB #### [address] [address] Baseball Pitcher: ILANA Barahona Automated1.4 per 100 WBCHigh0.0A[facility] Fayette Medical CenterComment on above:Performed By: #### CDP, PFA, CP, GLYHGB #### [address] [address] Baseball Pitcher: Daniel Barahona mean volume (Bld) [Entitic vol]9.6 fL Normal8.1-13.5A[facility] Fayette Medical CenterComment on above:Performed By: #### CDP, PFA, CP, GLYHGB #### [address] [address] Baseball Pitcher: Taylor Barahonatejimbo (Bld) [#/Vol]263 10*3/sPElxqbr791-700 [facility] Medical CenterComment on above:Performed By: #### CDP, PFA, CP, GLYHGB #### [facility] [address] [place] [address] Baseball Pitcher: ISABELLE BarahonaBC (Bld) [#/Vol]2.76 10*6/uLLow3.95-5.11A[facility] Fayette Medical CenterComment on above:Performed By: #### CDP, PFA, CP, GLYHGB #### [facility] [address] [place] [address] Baseball Pitcher: PETR Barahona (Bld) [#/Vol]8.4 10*3/uLNormal3.5-11.3Mer[facility] Hospital Of San BernardinoComment on above:Performed By: #### CDP, PFA, CP, GLYHGB #### [facility] [address] [place] [address] Baseball Pitcher: Savage Jacob MDErythrocyte distribution width (RBC) [Ratio]15.6 %High11.8 - 14.4 %[facility], MNHematocrit (Bld) [Volume fraction]25.4 % Low36.3 - 47.1 %[facility], JERRYHemoglobin (Bld) [Mass/Vol]7.9 g/dLLow11.9 - 15.1 g/dLMercy Health Kings Mills Hospital, MNInterpretation and review of laboratory results AbnormalMercy Health Kings [facility] Hospital, [facility] MIAMIH (RBC) [Entitic mass]28.6 pg25.2 - 33.5 pgMercy Health Kings [facility] Hospital, MNMCHC (RBC) [Mass/Vol]31.1 g/dL28.4 - 34.8 g/dLMercy Health [facility], [place] MCV (RBC) [Entitic vol]92.0 fL82.6 - 102.9 fLMercy Health Kings Mills Hospital, MNPlatelet mean volume (Bld) [Entitic vol]9.6 fL8.1 - 13.5 fLMercy Health Kings Mills Hospital, MNPlatelets (Bld) [#/Vol]263 10*3/[facility]- [place], KYRBC (Bld) [#/Vol]2.76 10*6/uLLow3.95 - 5.11 m/uLMercy Health [facility], JERRYWBC (Bld) [#/Vol]1.4 10*3/uLHigh0.0 per 100 WBC [facility], MNWBC (Bld) [#/Vol]8.4 10*3/[facility]- [place], MNCHLORIDE (POC)on 45-43-2098ZXA Wcowntio823 mmol/L98 - 107 mmol/LMUniversity [facility]als [facility]- [place], [place] CORTISOLon 90-82-3154Qqnwhmoj03.6 ug/dL2.7 - 18.4 ug/dLMercy Health [facility], [place] Cortisol Collection InfoNOT REPORTEDMercy Health [facility], KYCortisolon 07-12-2019 Vbcfhynd02.6 ug/dLNormal2.7-18.4A[facility] Fayette Medical CenterComment on above:Result Comment: Cortisol Reference Range: AM 6.0-18.4 PM 2.7-10.5Performed By: #### CDP, PFA, CP, GLYHGB #### [employer] [address] [place] [address] [phone] Baseball Pitcher: CASEY Barahonaollection Info.NOT REPORTEDNormalAdena Fayette Medical CenterComment on above:Performed By: #### CDP, PFA, CP, GLYHGB #### [employer] [address] [place] [address] Baseball Pitcher: Hans Barahonaatinine W/GFR Point of Careon 99-96-0597ZYD Yydqypz66 mL/minLow>60[facility], KYGFR CommentMercy Health Kings [facility] Hospital, KYGFR Non- Eeoxqxlu92 mL/minLow>60[facility], KYPOC Creatinine1.27 mg/dL High0.51 - 1.19 mg/dLMercy Health Kings [facility], KYEEG video monitoringon 70-22-1638SxbnaMercy Health Kings [facility] Hospital, MNElectrolyteson 78-05-5018Jrhbs gap [Moles/Vol]11 mmol/LNormal9-17 [facility] CenterComment on above:Performed By: #### CDP, PFA, CP, GLYHGB #### [employer] [address] [place] [address] Baseball Pitcher: CASEY Barahonahloride [Moles/Vol]110 mmol/VKljv14-351MmfmyAdena Fayette Medical CenterComment on above:Performed By: #### CDP, PFA, CP, GLYHGB #### [employer] [facility] [place] [address] Baseball Pitcher: Savage Jacob MDCO2 [Moles/Vol]26 mmol/ZCwjeit18-14NbkoyAdena Fayette Medical CenterComment on above:Performed By: #### CDP, PFA, CP, GLYHGB #### [facility] [employer] [address] [place] [address] Baseball Pitcher: Savage Jacob MDPotassium [Moles/Vol]4.0 mmol/LNormal3.7-5.3 [facility] CenterComment on above:Performed By: #### CDP, PFA, CP, GLYHGB #### [facility] [address] [place] [address] [phone] Baseball Pitcher: Savage Jacob MDSodium [Moles/Vol]147 mmol/PWkom962-743TrfbvAdena Fayette Medical CenterComment on above:Performed By: #### CDP, PFA, CP, GLYHGB #### [facility] [address] [place] [address] Baseball Pitcher: Savage Jacob MDHemoglobin and hematocrit, bloodon 81-73-5717FWC Eijovsyucj50 %Low36 - 46 %[facility], MNPO Hemoglobin8.4 g/dLLow12 - 16 g/dLMercy Health Kings Mills Hospital, KYLactic Acid, POCon 64-22-8657LQQ Lactic Acid0.59 mmol/L 0.56 - 1.39 mmol/[facility], KYMAGNESIUM, IONIZEDon 16-49-6513Ztijwumyk, Ionized0.52 mmol/L0.45 - 0.6 mmol/[facility], KYMRA HEAD WO CONTRASTon 62-61-0135GWU HEAD WO CONTRASTEXAMINATION: MRI OF THE BRAIN WITHOUT CONTRAST; MRA OF THE HEAD WITHOUT CONTRAST; MRA OF THE NECK WITHOUT CONTRAST 07/12/2019 12:04 pm TECHNIQUE: Multiplanar multisequence MRI of the brain was performed without the administration of intravenous contrast.; MRA of the head was performed utilizing fjzz-ye-qjsdmf imaging with MIP images. No intravenous contrast [...] PROVIDED HISTORY: stroke FINDINGS: MRI Brain: INTRACRANIAL STRUCTURES/VENTRICLES: There is known acute to subacute infarction [...] in the bilateral basal ganglia/periventricular white matter. There is mild parenchymal volume [...] of the P2 segment of the right ADJUSTER LEADER. There are additional 80% focal stenosis along the P2 segments of the bilateral admissions consultant. The vertebral and basilar arteries appear unremarkable. [...] of the P2 segment of the right ADJUSTER LEADER. Additional 80% focal stenosis along the P2 segments of the bilateral admissions consultant. 40% stenosis at the origins of the bilateral internal carotid arteries. The results were sent to radiology results communication. Interpreted by: Red Sheets MD Signed by: Red Sheets MD 07/12/19 Final resultNormalMercy Community Hospital Of San BernardinoMRA NECK WO CONTRASTon 32-12-5710AHN NECK WO CONTRASTEXAMINATION: MRI OF THE BRAIN WITHOUT CONTRAST; MRA OF THE HEAD WITHOUT CONTRAST; MRA OF THE NECK WITHOUT CONTRAST 07/12/2019 12:04 pm TECHNIQUE: Multiplanar multisequence MRI of the brain was performed without the administration of intravenous contrast.; MRA of the head was performed utilizing csrs-ni-fqwxcc imaging with MIP images. No intravenous contrast [...] PROVIDED HISTORY: stroke FINDINGS: MRI Brain: INTRACRANIAL STRUCTURES/VENTRICLES: There is known acute to subacute infarction [...] in the bilateral basal ganglia/periventricular white matter. There is mild parenchymal volume [...] of the P2 segment of the right ADJUSTER LEADER. There are additional 80% focal stenosis along the P2 segments of the bilateral admissions consultant. The vertebral and basilar arteries appear unremarkable. [...] of the P2 segment of the right ADJUSTER LEADER. Additional 80% focal stenosis along the P2 segments of the bilateral admissions consultant. 40% stenosis at the origins of the bilateral internal carotid arteries. The results were sent to radiology results communication. Interpreted by: Red Sheets MD Signed by: Red Sheets MD 07/12/19 Final resultNormalMercy Community Hospital Of San BernardinoMRI BRAIN WO CONTRASTon 43-20-8020IMK BRAIN WO CONTRASTEXAMINATION: MRI OF THE BRAIN WITHOUT CONTRAST; MRA OF THE HEAD WITHOUT CONTRAST; MRA OF THE NECK WITHOUT CONTRAST 07/12/2019 12:04 pm TECHNIQUE: Multiplanar multisequence MRI of the brain was performed without the administration of intravenous contrast.; MRA of the head was performed utilizing kaci-tr-dkktqr imaging with MIP images. No intravenous contrast [...] PROVIDED HISTORY: stroke FINDINGS: MRI Brain: INTRACRANIAL STRUCTURES/VENTRICLES: There is known acute to subacute infarction [...] in the bilateral basal ganglia/periventricular white matter. There is mild parenchymal volume [...] of the P2 segment of the right ADJUSTER LEADER. There are additional 80% focal stenosis along the P2 segments of the bilateral admissions consultant. The vertebral and basilar arteries appear unremarkable. [...] of the P2 segment of the right ADJUSTER LEADER. Additional 80% focal stenosis along the P2 segments of the bilateral admissions consultant. 40% stenosis at the origins of the bilateral internal carotid arteries. The results were sent to radiology results communication. Interpreted by: Red Sheets MD Signed by: Red Sheets MD 07/12/19 Final resultNormalAdena Fayette Medical CenterMagnesiumon 07-12-2019 Magnesium [Mass/Vol]2.0 mg/dLNormal1.6-2.6[facility] Comment on above:Performed By: #### CDP, PFA, CP, GLYHGB #### [employer] [address] [place] [address] Baseball Pitcher: Miles Barahonagnesium [Mass/Vol]2.0 mg/dL1.6 - 2.6 mg/dL [facility], MNMagnesium, Ionizedon 82-32-1267Bfksuyqol [Mass/Vol]0.52 mmol/LNormal0.45-0.60[facility] CenterComment on above:Performed By: #### CDP, PFA, CP, GLYHGB #### [employer] [address] [place] [address] Baseball Pitcher: Savage Jacob MDOtheron 71-08-0845GbtdnMercy Health [facility], KYMer[facility], KYMer[facility], KYInterpretation and review of laboratory resultsAbnormHolzer Hospital, [facility] Glucose Fingerstickon 07-12-2019 Interpretation and review of laboratory resultsAbnormHolzer Hospital, [facility] Srcpjrh961 mg/aVBufi16 - 105 mg/dLMercy Health Kings [facility], KYInterpretation and review of laboratory resultsAbnormHolzer Hospital, [facility] Jjqbpkp848 mg/qVLtcy34 - 105 mg/dLMercy Health [facility], MNPOC Cplxugv674 mg/dL65 - 105 mg/dLMercy Health Kings [facility], MNPOCT Glucoseon 23-88-0328RYS Jjywjft547 mg/sPTrjh13 - 100 mg/dLMercy Health Kings [facility], KYPOTASSIUM (POC)on 88-98-5818IJD Potassium3.3 mmol/LLow3.5 - 4.5 mmol/L [facility], [facility] 78-07-2379CVI Coag (PPP) [Relative time]1.1 {INR}Normal [place], KYComment on above:Result Comment: Therapeutic Range: Moderate Anticoagulant Intensity: INR = 2.0-3.0 High Anticoagulant Intensity: INR = 2.5-3.5Performed By: #### CDP, PFA, CP, GLYHGB #### [employer] [address] [place] [address] Baseball Pitcher: RIGO Barahona Coag (PPP) [Time]11.4 sNormal9.0-12.0[place], KYComuniversity of michigan health on above:Performed By: #### CDP, PFA, CP, GLYHGB #### [employer] [address] [place] [address] Baseball Pitcher: Pramod Barahonahoyamini 78-31-0535Uwdtctetw [Mass/Vol]2.6 mg/dL2.6 - 4.5 mg/dLMercy Health Kings Mills Hospital, KYPhosphorus, Inorg.on 07-12-2019 Phosphorus, Inorg.2.6 mg/dLNormal2.6-4.5A[facility] Medical CenterComment on above:Performed By: #### CDP, PFA, CP, GLYHGB #### [employer] [address] [place] [address] [phone] Baseball Pitcher: RAMOS Barahona (POC)on 17-73-8996YLX Oahrpn608 mmol/L138 - 146 mmol/LMercy Health- [place], KYT4, Freeon 75-01-3135Umahhnujx, Free1.13 ng/dL 0.93 - 1.7 ng/dLMercy Health Kings Mills Hospital, KYTSH w/reflex to FT4on 04-76-6343TTV Qn8.82 m[IU]/LHigh0.30-5.00A[facility] Medical CenterComment on above:Performed By: #### CDP, PFA, CP, GLYHGB #### [employer] [address] [place] [address] [phone] Baseball Pitcher: MATTY Barahona with Reflexon 18-62-3014Zslpodxahcjmuc and review of laboratory resultsAbnormalMercy Health [facility], KYTSH Qn8.82 m[IU]/LHigh [facility], KYThyroxine, Freeon 80-33-7534Rzyhfxkfu, Free1.13 ng/dLNormal 0.93-1.70[facility] CenterComment on above:Performed By: #### CDP, PFA, CP, GLYHGB #### [employer] [address] [place] [address] [phone] Baseball Pitcher: Savage Jacob MDVITAMIN B12 & FOLATEon 24-24-9406Ydjndjmif (Vitamin B12) [Mass/Vol]1313 pg/jTBxjt407 - 1245 pg/mLMercy Health Kings [facility] Hospital, KYFolate 7 ng/mL>4.8[facility], KYInterpretation and review of laboratory results AbnormalMercy Health [facility], KYXR CHEST PORTABLEon 03-82-9048YS CHEST PORTABLE EXAMINATION: ONE XRAY VIEW OF [...] Signed by: Red Sheets MD 07/12/19 Final resultNoUniversity Hospitals [facility], [facility], [facility], MNAPTMount Graham Regional Medical [facility] [id number] Coag (Bld) [Time]57.0 s High20.5-30.5A[facility] Fayette Medical CenterComment on above:Performed By: #### CDP, PFA, CP, GLYHGB #### [employer] [address] [place] [address] Baseball Pitcher: Shalom Barahonag (Bld) [Time]57.0 [facility], KYInterpretation and review of laboratory resultsAbStephenville, KYaPTT Coag (Bld) [Time]51.5 [facility]0.5-30.5[facility] Comment on above:Performed By: #### CDP, PFA, CP, GLYHGB #### [employer] [address] [place] [address] Baseball Pitcher: Shalom Barahona (Bld) [Time]51.5 [facility], KYInterpretation and review of laboratory resultsAbStephenville, KYaPTT Coag (Bld) [Time]55.6 sHigh20.5-30.5[facility] Comment on above:Performed By: #### CDP, PFA, CP, GLYHGB #### [facility] [address] [place] [address] Baseball Pitcher: Shalom Barahona (Erlinda) [Time]55.6 [facility]- [place], MNInterpretation and review of laboratory resultsAbnormalMer Health- [place], KYAnion Gap (Calc) POCon [id number] gap [Moles/Vol]10 mmol/L7 - 16 mmol/L [facility]- [place], KYAnion gap [Moles/Vol]10 mmol/L7 - 16 mmol/LMercy Health- [place], KYAnion gap [Moles/Vol]11 mmol/L7 - 16 mmol/LMercy Health- [place], KYAnion gap [Moles/Vol]12 mmol/L7 - 16 mmol/LMercy Health- [place], KYAnion gap [Moles/Vol]11 mmol/L7 - 16 mmol/LMercy Health- [place], KYAnion gap [Moles/Vol]12 mmol/L7 - 16 mmol/LMercy [facility]- [place], KYAnion gap [Moles/Vol]11 mmol/L7 - 16 mmol/LMercy [facility]- [place], KYAnion gap [Moles/Vol]12 mmol/L7 - 16 mmol/LMercy Health- [place], [place] Arterial Blood Gas, POCon [phone] TestNOT REPORTEDMer Health- [place], [place] OUP635.0[facility]- [place], KYModeNOT REPORTEDMercy Health- [place], KYNegative Base Excess, ArtNOT REPORTEDMer Health- [place], KYO2 Device/Flow/%Adult VentilatorMer Health- [place], MNPOC NRB975.7 mmol/LHigh21 - 28 mmol/LMercy Health- [place], MNPOC O2 SAT98 %94 - 98 %[facility]- [place], MNPO xBC328.9[facility]- [place], MNPO pCO2 TempNOT REPORTEDmm HgMer Health- [place], MNPOC pH7.448[facility]- [place], MNPOC pH TempNOT REPORTEDMercy Health- [place], MNPO PO299.4[facility]- [place], MNPOC pO2 Temp NOT REPORTEDmm HgMercy Health- [place], KYPositive Base Excess, [id number] Health- [place], KYPt TempNOT REPORTEDMercy Health- [place], [facility] SiteArterial LineMercy Health- [place], MNTCO2 (calc), Art31 mmol/LHigh22 - 29 mmol/LMercy Health- [place], [place] Graham TestNOT REPORTEDMercy Health- [place], CQNNG117.0[facility]- [place], KYModeNOT REPORTEDMercy Health- [place], KYNegative Base Excess, ArtNOT REPORTEDMercy Health- [place], KYO2 Device/Flow/%Adult VentilatorMercy Health- [place], MNPOC ONB679.4 mmol/L High21 - 28 mmol/LMercy Health- [place], MNPO O2 SAT99 %High94 - 98 %[facility]- [place], MNPO qBS799.7[facility]- [place], [facility] pCO2 TempNOT REPORTEDmm HgMercy Health- [place], MNPOC pH7.446[facility]- [place], MNPOC pH TempNOT REPORTEDMercy Health- [place], MNPO IV3341.2HighMercy Health- [place], [facility] pO2 TempNOT REPORTEDmm Hg [facility]- [place], KYPositive Base Excess, Mpa9OysaRienb Health- [place], KYPt TempNOT REPORTEDMer Health- [place], [facility] SiteArterial LineMer Health- [place], KYTCO2 (calc), Art31 mmol/LHigh22 - 29 mmol/LMercy Health- [place], KYAllen TestNOT REPORTED [facility]- [place], PFWIT149.0[facility]- [place], KYModeNOT REPORTEDMercy Health- [place], KYNegative Base Excess, ArtNOT REPORTEDMercy Health- [place], MNO2 Device/Flow/% Adult VentilatorMer Health- [place], [facility] IND707.6 mmol/LHigh21 - 28 mmol/LMercy Health- [place], [facility] O2 YAU374 %High94 - 98 %[facility]- [place], MNPO wRU081.2[facility]- [place], MNPO pCO2 TempNOT REPORTEDmm HgMercy Health- [place], [facility] pH7.455High [facility]- [place], MNPO pH TempNOT REPORTEDMercy Health- [place], [facility] FR8669.9High [facility]- [place], MNPOC pO2 TempNOT REPORTEDmm HgMercy Health- [place], MNPositive Base Excess, [id number] Health- [place], KYPt TempNOT REPORTEDMercy Health- [place], [place] Sample SiteArterial LineMer Health- [place], MNTCO2 (calc), Art31 mmol/LHigh22 - 29 mmol/LMercy Health- [place], KYAllen TestNOT REPORTEDMercy Health- [place], OPCFJ067.0 [facility]- [place], MNModeNOT REPORTEDMercy Health- [place], KYNegative Base Excess, ArtNOT REPORTEDMer Health- [place], MNO2 Device/Flow/%Adult VentilatorMercy Health- [place], [facility] KNQ098.3 mmol/LHigh21 - 28 mmol/LMercy Health- [place], [facility] O2 OJO289 % High94 - 98 %[facility] [place], [facility] nBD680.8[facility]- [place], [facility] pCO2 Temp NOT REPORTEDmm HgMercy Health- [place], [facility] pH7.438[facility]- [place], [facility] pH Temp NOT REPORTEDMercy Health- [place], [facility] HG5635.6HighMer Health- [place], [facility] pO2 Temp NOT REPORTEDmm HgMercy Health- [place], MNPositive Base Excess, [id number] Health- [place], KYPt TempNOT REPORTEDMer Health- [place], [facility] SiteArterial LineWayne Hospital Health- [place], MNTCO2 (calc), Art32 mmol/LHigh22 - 29 mmol/LMbarberton citizens hospitaly Health- [place], [place] Graham TestNOT REPORTEDMercy Health- [place], LZCPW157.0Mer [facility]- [place], MNModeNOT REPORTEDMercy [facility]- [place], KYNegative Base Excess, ArtNOT REPORTEDMer Health- [place], MNO2 Device/Flow/%Adult VentilatorMer Health- [place], [facility] KBY730.5 mmol/L High21 - 28 mmol/LMercy Health- [place], [facility] O2 SAT98 %94 - 98 %[facility] [place], [facility] mSO600.6[facility]- [place], [facility] pCO2 TempNOT REPORTEDmm HgMercy Health- [place], [facility] pH7.460HighMercy Health- [place], KYPOC pH TempNOT REPORTEDMercy Health- [place], [facility] PO291.1[facility]- [place], [facility] pO2 TempNOT REPORTEDmm HgMercy Health- [place], MNPositive Base Excess, [id number] Health- [place], KYPt TempNOT REPORTEDMercy Health- [place], MNSample SiteArterial LineMercy Health- [place], MNTCO2 (calc), Art31 mmol/LHigh22 - 29 mmol/LMercy Health- [place], MNAllen TestNOT REPORTEDMercy Health- [place], CADLS7248.0[facility]- [place], KYModeNOT REPORTEDMercy [facility]- [place], KYNegative Base Excess, ArtNOT REPORTEDMer Health- [place], MNO2 Device/Flow/%Adult Ventilator [facility] [place], MNPOC QRJ811.7 mmol/LHigh21 - 28 mmol/LMbarberton citizens hospitaly Health- [place], MNPO O2 SAT86 %Low94 - 98 %[facility] [place], [facility] dVY096.7LowMer Health- [place], [place] POC pCO2 TempNOT REPORTEDmm HgMercy Health- [place], [facility] pH7.566HighMercy Health- [place], [facility] pH TempNOT REPORTEDMer Health- [place], [facility] PO243.2Critically lowMercy Health- [place], [facility] pO2 TempNOT REPORTEDmm HgMercy Health- [place], MNPositive Base Excess, [id number] Health- [place], KYPt TempNOT REPORTEDMer Health- [place], [place] Sample SiteArterial LineWayne Hospital Health- [place], MNTCO2 (calc), Art30 mmol/LHigh22 - 29 mmol/LMercy Health- [place], MNAllen TestNOT APPLICABLEMer Health- [place], QQWNQ6537.0 [facility]- [place], MNModePRVCMercy Health- [place], KYNegative Base Excess, ArtNOT REPORTEDMer Health- [place], MNO2 Device/Flow/%Adult VentilatorMer Health- [place], [place] POC BDZ083.6 mmol/LHigh21 - 28 mmol/LMbarberton citizens hospitaly [facility]- [place], [facility] O2 SAT86 %Low94 - 98 %[facility]- [place], MNPOC yZP852.3[facility]- [place], [facility] pCO2 TempNOT REPORTEDmm HgMercy Health- [place], [facility] pH7.452HighMercy Health- [place], [facility] pH Temp NOT REPORTEDMercy Health- [place], [facility] PO249.8Critically lowMercy Health- [place], [facility] pO2 TempNOT REPORTEDmm HgMercy Health- [place], MNPositive Base Excess, Jgb2Lyqc [facility]- [place], KYPt TempNOT REPORTEDMercy [facility]- [place], [facility] SiteArterial LineMercy Health- [place], MNTCO2 (calc), Art31 mmol/LHigh22 - 29 mmol/LMercy Health- [place], KYAllen TestPositiveMercy Health- [place], WDYBO1913.0[facility]- [place], MNMode PRVCMercy Health- [place], KYNegative Base Excess, ArtNOT REPORTEDMercy [facility]- [place], MNO2 Device/Flow/%Adult VentilatorMercy Health- [place], [facility] VZG992.2 mmol/LHigh21 - 28 mmol/LMercy Health- [place], [facility] O2 SAT86 %Low94 - 98 %[facility] [place], [facility] lKV674.0Mer [facility]- [place], [facility] pCO2 TempNOT REPORTEDmm HgMercy Health- [place], [place] POC pH7.435[facility]- [place], [facility] pH TempNOT REPORTEDMer Health- [place], [facility] PO249.7Critically lowMercy Health- [place], [facility] pO2 TempNOT REPORTEDmm HgMercy Health- [place], MNPositive Base Excess, [id number] Health- [place], KYPt TempNOT REPORTEDMer[facility]- [place], [facility] SiteArterial LineMer Health- [place], MNTCO2 (calc), Art32 mmol/LHigh22 - 29 mmol/LMercy Health- [place], MNBASIC METABOLIC PANEL on 78-89-1404Hcyzw gap [Moles/Vol]15 mmol/L9 - 17 mmol/LMercy Health- [place], [place] Bun/Cre RatioNOT REPORTEDMercy Health- [place], MNCalcium [Mass/Vol]8.3 mg/dLLow8.6 - 10.4 mg/dLMercy Health- [place], KYChloride [Moles/Vol]106 mmol/L98 - 107 mmol/L [facility]- [place], KYCO2 [Moles/Vol]26 mmol/L20 - 31 mmol/LMercy Health- [place], [place] Creatinine [Mass/Vol]1.09 mg/dLHigh0.5 - 0.9 mg/dLMercy Health- [place], KYGFR >60>60 mL/minMercy Health- [place], KYGFR CommentMercy Health- [place], [place] GFR Non- Qfzbldij85 mL/minLow>60[facility]- [place], KYGFR StagingNOT REPORTEDMercy Health- [place], KYGlucose [Mass/Vol]166 mg/zQCrfi99 - 99 mg/dLMercy Health- [place], KYInterpretation and review of laboratory resultsAbnormalMercy Health- [place], KYPotassium [Moles/Vol]3.5 mmol/LLow3.7 - 5.3 mmol/LMercy Health- [place], KYSodium [Moles/Vol]147 mmol/RLubl087 - 144 mmol/LMercy Health- [place], KYUrea nitrogen [Mass/Vol]30 mg/dLHigh8 - 23 mg/dLMercy Health- [place], KYBasic Metabolic Panelon 24-47-3075Jojwp gap [Moles/Vol]17 mmol/L9 - 17 mmol/LMer[facility]- [place], KYBun/Cre RatioNOT REPORTEDMercy Health- [place], KYCalcium [Mass/Vol]8.7 mg/dL8.6 - 10.4 mg/dLMercy Health- [place], KYChloride [Moles/Vol]102 mmol/L98 - 107 mmol/LMercy [facility]- [place], KYCO2 [Moles/Vol]26 mmol/L20 - 31 mmol/LMercy [facility]- [place], [place] Creatinine [Mass/Vol]1.29 mg/dLHigh0.5 - 0.9 mg/dLMercy Health- [place], KYGFR Yjxqxwpr56 mL/minLow>60[facility]- [place], KYGFR CommentMercy Health- [place], KYGFR Non- Fnojhmyj95 mL/minLow>60[facility]- [place], KYGFR StagingNOT REPORTEDMercy Health- [place], KYGlucose [Mass/Vol]287 mg/bQFosg18 - 99 mg/dLMercy Health- [place], KYPotassium [Moles/Vol]3.2 mmol/LLow3.7 - 5.3 mmol/LMercy [facility]- [place], KYSodium [Moles/Vol]145 mmol/EBwyq780 - 144 mmol/LMMercy Health [facility], KYUrea nitrogen [Mass/Vol]32 mg/dLHigh8 - 23 mg/dLMercy Health [facility], KYBasic Metabolic Profon 07-11-2019(cont.)NormalAdena Fayette Medical CenterComment on above: Result Comment: Average GFR for 70 or more years old: 75 mL/min/1.73sq m Chronic Kidney Disease: <60 mL/min/1.73sq m Kidney failure: <15 mL/min/1.73sq m eGFR calculated using average adult body mass. Additional eGFR calculator available at: http://www.LikeBetter.com/multiple_crcl_2012.htmPerformed By: #### CDP, PFA, CP, GLYHGB #### [employer] [address] [place] [address] [id number] Baseball Pitcher: Savage Jacob MDAnion gap [Moles/Vol]15 mmol/LNormal9-17A[facility] Fayette Medical CenterComment on above:Performed By: #### CDP, PFA, CP, GLYHGB #### [employer] [address] [place] [address]75 Baseball Pitcher: Savage Jacob MDCalcium [Mass/Vol]8.3 mg/dLLow8.6-10.4A[facility] Fayette Medical CenterComment on above:Performed By: #### CDP, PFA, CP, GLYHGB #### [employer] [address] [place] [address]43 Baseball Pitcher: Savage Jacob MDChloride [Moles/Vol]106 mmol/MEdeaiv25-785AdehrAdena Fayette Medical CenterComment on above:Performed By: #### CDP, PFA, CP, GLYHGB #### [employer] [address] [place] [address] [id number] Baseball Pitcher: Savage Jacob MDCO2 [Moles/Vol]26 mmol/PQcrvph96-36GmukxAdena Fayette Medical CenterComment on above:Performed By: #### CDP, PFA, CP, GLYHGB #### [facility] [address] [place] [address] Baseball Pitcher: Savage Jacob MDCreatinine [Mass/Vol]1.09 mg/dLHigh0.50-0.90 [facility]ayette Medical CenterComment on above:Performed By: #### CDP, PFA, CP, GLYHGB #### [place] [address] Baseball Pitcher: Savage Jacob MDGFR, Amer>60Normal>60A[facility] Fayette Medical CenterComment on above:Performed By: #### CDP, PFA, CP, GLYHGB #### [place] [address] Baseball Pitcher: Savage Jacob MDGFR,non Amer50 mL/minLow>60[facility]ayette Medical CenterComment on above:Performed By: #### CDP, PFA, CP, GLYHGB #### [place] [address] Baseball Pitcher: Savage Jacob MDGlucose [Mass/Vol]166 mg/hAFauh07-11Keseq [facility] Hospital Of San BernardinoComment on above:Performed By: #### CDP, PFA, CP, GLYHGB #### [place] [address] Baseball Pitcher: Savage Jacob MDPotassium [Moles/Vol]3.5 mmol/LLow3.7-5.3Mbarberton citizens hospitaly [facility] Hospital Of San BernardinoComment on above:Performed By: #### CDP, PFA, CP, GLYHGB #### [facility] [address] [place] [address] Baseball Pitcher: Savage Jacob MDSodium [Moles/Vol]147 mmol/IFses597-786BmttiAdena Fayette Medical CenterComment on above:Performed By: #### CDP, PFA, CP, GLYHGB #### [facility] [address] [place] [address] Baseball Pitcher: Savage Jacob MDUrea nitrogen [Mass/Vol]30 mg/dLHigh8-23A[facility]ayette Medical CenterComment on above:Performed By: #### CDP, PFA, CP, GLYHGB #### [facility] [address] [place] [address] Baseball Pitcher: Savage Jacob MDBUN/CRE RatioNOT REPORTEDNormal9-20A[facility] Medical CenterComment on above:Performed By: #### CDP, PFA, CP, GLYHGB #### [facility] [address] [place] [address]30 Baseball Pitcher: ZANA Barahonataging:NOT REPORTEDNoFort Hamilton HospitalComment on above:Performed By: #### CDP, PFA, CP, GLYHGB #### [facility] [address] [place] [address]53 Baseball Pitcher: Savage Jacob MD(cont.)[facility] Comment on above:Result Comment: Average GFR for 70 or more years old: 75 mL/min/1.73sq m Chronic Kidney Disease: <60 mL/min/1.73sq m Kidney failure: <15 mL/min/1.73sq m eGFR calculated using average adult body mass. Additional eGFR calculator available at: http://www.[employer]/multiple_crcl_2012.htmPerformed By: #### CDP, PFA, CP, GLYHGB #### [facility] [address] [place] [address]22 Baseball Pitcher: Chayito Barahona gap [Moles/Vol]17 mmol/LNormal9-17A[facility] Medical CenterComment on above:Performed By: #### CDP, PFA, CP, GLYHGB #### [facility] [address] [place] [address] 15685 Baseball Pitcher: Savage Jacob MDCalcium [Mass/Vol]8.7 mg/dLNormal8.6-10.4A[facility]ayette Medical CenterComment on above:Performed By: #### CDP, PFA, CP, GLYHGB #### [facility] [address] [place] [address] 25538 Baseball Pitcher: Savage Jacob MDChloride [Moles/Vol]102 mmol/THyqedb94-389QvrotAdena Fayette Medical CenterComment on above:Performed By: #### CDP, PFA, CP, GLYHGB #### [facility] [address] [place] [address] Baseball Pitcher: Savage Jacob MDCO2 [Moles/Vol]26 mmol/KKduoia00-18UtzrmAdena Fayette Medical CenterComment on above:Performed By: #### CDP, PFA, CP, GLYHGB #### [facility] [address] [place] [address] Baseball Pitcher: Savage Jacob MDCreatinine [Mass/Vol]1.29 mg/dLHigh0.50-0.90 [facility] Medical CenterComment on above:Performed By: #### CDP, PFA, CP, GLYHGB #### [facility] [address] [place] [address] 8[address]21 Baseball Pitcher: SALLY Barahona, Amer50 mL/minLow>60[facility] Medical CenterComment on above:Performed By: #### CDP, PFA, CP, GLYHGB #### [facility] [address] [place] [address]406 Baseball Pitcher: SALLY Barahona,non Amer41 mL/minLow>60[facility] Medical CenterComment on above:Performed By: #### CDP, PFA, CP, GLYHGB #### [facility] [address] [place] [address]472 Baseball Pitcher: Savage Jacob MDGlucose [Mass/Vol]287 mg/bTPlpp05-05Rynbi [facility] San BernardinoComment on above:Performed By: #### CDP, PFA, CP, GLYHGB #### [facility] [address] [place] [address] Baseball Pitcher: HALEY Barahonaotassium [Moles/Vol]3.2 mmol/LLow3.7-5.3[facility] Of San BernardinoComment on above:Performed By: #### CDP, PFA, CP, GLYHGB #### [facility] [address] [place] [address]10 Baseball Pitcher: ZANA Barahonaodium [Moles/Vol]145 mmol/LQglm211-466BdpjfAdena Fayette Medical CenterComment on above:Performed By: #### CDP, PFA, CP, GLYHGB #### [facility] [address] [place] [address]46 Baseball Pitcher: Savage Jacob MDUrea nitrogen [Mass/Vol]32 mg/dLHigh8-23A[facility] Medical CenterComment on above:Performed By: #### CDP, PFA, CP, GLYHGB #### [facility] [address] [place] [address] 36162 Baseball Pitcher: ELMER BarahonaN/CRE RatioNOT REPORTEDNormal9-20[facility] Medical CenterComment on above:Performed By: #### CDP, PFA, CP, GLYHGB #### [facility] [address] [place] [address]357 Baseball Pitcher: ZANA Barahonataging:NOT REPORTEDNormalAdena Fayette Medical CenterComment on above:Performed By: #### CDP, PFA, CP, GLYHGB #### [facility] [address] [place] [address]234 Baseball Pitcher: CASEY BarahonaALCIUM, IONIC (POC)on 59-97-6659WXZ Ionized Calcium1.16 mmol/L1.15 - 1.33 mmol/[facility] [place], KYPOC Ionized Calcium1.16 mmol/L1.15 - 1.33 mmol/[facility] [place], KYPOC Ionized Calcium1.15 mmol/L1.15 - 1.33 mmol/[facility] [place], KYPOC Ionized Calcium1.18 mmol/L1.15 - 1.33 mmol/L [facility], KYPO Ionized Calcium1.14 mmol/LLow1.15 - 1.33 mmol/[facility] [place], KYPOC Ionized Calcium1.11 mmol/LLow1.15 - 1.33 mmol/[facility] [place], KYPOC Ionized Calcium1.14 mmol/LLow1.15 - 1.33 mmol/[facility] [place], KYPOC Ionized Calcium1.13 mmol/LLow1.15 - 1.33 mmol/[facility] [place], KYCALCIUM, IONIZEDon 28-08-3613Vbkfvin, Ion1.07 mmol/LLow1.13 - 1.33 mmol/[facility] [place], KYInterpretation and review of laboratory resultsAbnormHolzer Hospital, KYCBCon 01-00-5768Onugsbfrsvn distribution width (RBC) [Ratio]15.4 %High 11.8-14.4A[facility] Fayette Medical CenterComment on above:Performed By: #### CDP, PFA, CP, GLYHGB #### [employer] [address] [place] [address] Baseball Pitcher: Savage Jacob MDHematocrit (Bld) [Volume fraction]27.7 %Low 36.3-47.1MKeck Hospital of USCComment on above:Performed By: #### CDP, PFA, CP, GLYHGB #### [facility]Nearbu[facility] [address] [place] [address]608 Baseball Pitcher: Savage Jacob MDHemoglobin (Bld) [Mass/Vol]8.6 g/dLLow11.9-15.1 [facility] Medical CenterComment on above:Performed By: #### CDP, PFA, CP, GLYHGB #### [facility] [address] [place] [address] 52785 Baseball Pitcher: ALISSA BarahonaCH (RBC) [Entitic mass]28.9 jiIebzgy78.2-33.5 [facility] Medical CenterComment on above:Performed By: #### CDP, PFA, CP, GLYHGB #### [address] [address] Baseball Pitcher: JAIME BarahonaC (RBC) [Mass/Vol]31.0 g/cHLazlbs55.4-34.8 [facility] Medical CenterComment on above:Performed By: #### CDP, PFA, CP, GLYHGB #### [address] [address] Baseball Pitcher: ALISSA BarahonaCV (RBC) [Entitic vol]93.0 rIWahlze11.6-102.9 [facility] CenterComment on above:Performed By: #### CDP, PFA, CP, GLYHGB #### [place] [address] Baseball Pitcher: Savage Jacob MDNRBC Automated2.4 per 100 WBCHigh0.0A[facility] Fayette Medical CenterComment on above:Performed By: #### CDP, PFA, CP, GLYHGB #### [place] [address] Baseball Pitcher: HALEY Barahonalatelet mean volume (Bld) [Entitic vol]9.8 fL Normal8.1-13.5A[facility]ayette Medical CenterComment on above:Performed By: #### CDP, PFA, CP, GLYHGB #### [address] [address] Baseball Pitcher: HALEY Barahonalatelets (Bld) [#/Vol]305 10*3/hUEpvpkc611-708 [facility] CenterComment on above:Performed By: #### CDP, PFA, CP, GLYHGB #### [facility] [address] [place] [address] Baseball Pitcher: ISABELLE BarahonaBC (Bld) [#/Vol]2.98 10*6/uLLow3.95-5.11A[facility] Medical CenterComment on above:Performed By: #### CDP, PFA, CP, GLYHGB #### [facility] [address] [place] [address] Baseball Pitcher: Savage Jacob MDWBC (Bld) [#/Vol]15.5 10*3/uLHigh3.5-11.3MKeck Hospital of USCComment on above:Performed By: #### CDP, PFA, CP, GLYHGB #### [facility] [address] [place] [address] Baseball Pitcher: Savage Jacob MDErythrocyte distribution width (RBC) [Ratio]15.4 %High11.8 - 14.4 %[facility], MNHematocrit (Bld) [Volume fraction]27.7 % Low36.3 - 47.1 %[facility], MNHemoglobin (Bld) [Mass/Vol]8.6 g/dLLow11.9 - 15.1 g/dLMercy Health [facility], MNInterpretation and review of laboratory results AbnormalMercy Health [facility], MNMCH (RBC) [Entitic mass]28.9 pg25.2 - 33.5 pgMercy Health [facility], MNMCHC (RBC) [Mass/Vol]31.0 g/dL28.4 - 34.8 g/dLMercy Health [facility], [place] MCV (RBC) [Entitic vol]93.0 fL82.6 - 102.9 fLMercy Health [facility], MNPlatelet mean volume (Bld) [Entitic vol]9.8 fL8.1 - 13.5 fLMercy Health [facility], MNPlatelets (Bld) [#/Vol]305 10*3/uLWayne Hospital Health- [place], KYRBC (Bld) [#/Vol]2.98 10*6/uLLow3.95 - 5.11 m/uLWayne Hospital Health- [place], KYWBC (Bld) [#/Vol]2.4 10*3/uLHigh0.0 per 100 WBC [facility]- [place], KYWBC (Bld) [#/Vol]15.5 10*3/uLHighWayne Hospital Health- [place], [place] CHLORIDE (POC)on 37-47-5334WCS Ecscmcdo776 mmol/L98 - 107 mmol/LMercy Health- [place], KYPOC Swhvtugl672 mmol/LHigh98 - 107 mmol/LMercy Health- [place], KYPOC Chloride 106 mmol/L98 - 107 mmol/LM[facility]- [place], KYPOC Qurbsvnl913 mmol/L98 - 107 mmol/[facility]- [place], KYPOC Pkbpfqra175 mmol/L98 - 107 mmol/LM[facility]- [place], KYPOC Obflddwi706 mmol/L98 - 107 mmol/[facility] [place] Cxvvcuzp012 mmol/L98 - 107 mmol/[facility] [place] Gysdwpjj698 mmol/L98 - 107 mmol/L [facility] [place], [place], [employer] [id number] [Mass/Vol]1.07 mmol/LLow 1.13-1.33A[facility]ayette Medical CenterComment on above:Performed By: #### CDP, PFA, CP, GLYHGB #### [employer] [address] [place] [address] Baseball Pitcher: Janae Barahona W/GFR Point of Careon [phone] CommentUniversity [facility]als [facility]- [place], [place] Gswcyut00 mL/minLow>60[facility] [place], [place] Non- Ylprvamd68 mL/minLow>60[facility] [place] Creatinine1.28 mg/dL High0.51 - 1.19 mg/dLUniversity Hospitals [facility]hu[facility]- [place], [place] Mjxensk99 mL/minLow>60[facility] [place] CommentUniversity [facility]als [facility]- [place] Non- Poaprasb01 mL/minLow>60 [facility] [place] Creatinine1.3 mg/dLHigh0.51 - 1.19 mg/dLMercy Health- [place] Rniwcxo83 mL/minLow>60[facility] [place] CommentMercy [facility]- [place] Non- Muxgjtnt36 mL/minLow>60[facility] [place] Creatinine1.27 mg/dLHigh0.51 - 1.19 mg/dLMercy Health- [place] Xerhzoz41 mL/minLow>60[facility] [place] CommentMer[facility]- [place] Non- Jpmajfhw19 mL/min Low>60[facility] [place] Creatinine1.22 mg/dLHigh0.51 - 1.19 mg/dLMercy Health- [place], [place]GFR Cpxlacd69 mL/minLow>60[facility] [place], [place]GFR CommentMercy Health- [place], [place]GFR Non- Jegusxvp71 mL/minLow>60[facility] [place], [place]YPOC Creatinine1.26 mg/dLHigh0.51 - 1.19 mg/dLMercy Health- [place], KYGFR CommentMercy Health- [place], [place]GFR Opluzhz80 mL/minLow>60[facility] [place]GFR Non- Jvspumsb71 mL/minLow>60[facility] [place], [place]YPOC Creatinine1.24 mg/dLHigh0.51 - 1.19 mg/dLMercy Health- [place], KYGFR CommentMercy Health- [place], [place]GFR Eavbwac91 mL/minLow>60[facility] [place]GFR Non- Jengqcap03 mL/minLow>60[facility] [place]OC Creatinine1.23 mg/dLHigh0.51 - 1.19 mg/dLMercy Health- [place], [place] GFR Glbldnk15 mL/minLow>60[facility] [place]GFR CommentMercy Health- [place], [place]GFR Non- Zxyfqpfk43 mL/minLow>60[facility] [place], [place]OC Creatinine1.29 mg/dL High0.51 - 1.19 mg/dLMercy Health- [place], KYEKG 12 [place]on 59-63-0381Bbldcf Hgjs009 BPMMercy Health- [place], KYQ-T Musfbukj260 msMercy Health- [place], KYQRS Lhxainqm62 ms [facility] [place] KYQTc Calculation (Chandrika)398 msMercy Health- [place], KYR Axis44 degreesMercy [facility]- [place], KYT [place]-101degreesMercy Health- [place], KYVentricular Rate 106BPMMercy Health- [place], KYMer[facility]- [place], KYMer[facility]- [place], KYELECTROLYTE PANELon 22-58-2685Iutik gap [Moles/Vol]11 mmol/L9 - 17 mmol/LMercy Health- [place], KYChloride [Moles/Vol]110 mmol/LHigh98 - 107 mmol/LMercy [facility]- [place], KYCO2 [Moles/Vol]26 mmol/L20 - 31 mmol/LM[facility]- [place], KYInterpretation and review of laboratory resultsAbnormalWayne Hospital Health- [place], KYPotassium [Moles/Vol]4.0 mmol/L 3.7 - 5.3 mmol/LM[facility]- [place], KYSodium [Moles/Vol]147 mmol/ZYybb354 - 144 mmol/LM[facility]- [place], KYHemoglobin and hematocrit, bloodon 08-10-5650VIR Ggygklhoxy31 %Low36 - 46 %[facility]- [place], [place]YPOC Hemoglobin8.0 g/dLLow12 - 16 g/dLAdena Fayette Medical Centercy Health- [place], [place]YPOC Hqjrcxburg94 %Low36 - 46 %[facility]- [place], [place]OC Hemoglobin8.1 g/dLLow12 - 16 g/dLAdena Fayette Medical Centercy Health- [place], [place]YPOC Nysxyvwndo58 %Low36 - 46 %[facility]- [place], [place]OC Hemoglobin8.1 g/dLLow12 - 16 g/dLMercy Health- [place], [place]OC Yjywoeosls86 %Low36 - 46 %[facility]- [place], [place]OC Hemoglobin8.5 g/dLLow12 - 16 g/dLMercy Health- [place], [place]OC Tzrznuquri30 %Low36 - 46 %[facility]- [place], [place] POC Hemoglobin9.1 g/dLLow12 - 16 g/dLWayne Hospital Health- [place], [place]YPOC Segcononpj65 %Low36 - 46 %[facility]- [place], [place]OC Hemoglobin9.2 g/dLLow12 - 16 g/dLWayne Hospital Health- [place], [place]YPOC Qgehohsoos23 %Low36 - 46 %[facility], KYPOC Hemoglobin8.2 g/dL Low12 - 16 g/dLMercy Health [facility], KYPOC Blgrinysiu82 %Low36 - 46 %[facility], MNPO Dshuyfoxlg57.2 g/dLLow12 - 16 g/dLMercy Health [facility], KYLactic Acid, POC on 49-85-6881YWB Lactic Acid0.51 mmol/LLow0.56 - 1.39 mmol/[facility] [place], [place] POC Lactic Acid0.64 mmol/L0.56 - 1.39 mmol/[facility] [place], KYPOC Lactic Acid 0.73 mmol/L0.56 - 1.39 mmol/[facility] [place], [place]YPOC Lactic Acid1.11 mmol/L0.56 - 1.39 mmol/[facility] [place], KYPOC Lactic Acid0.74 mmol/L0.56 - 1.39 mmol/L [facility], KYPOC Lactic Acid0.84 mmol/L0.56 - 1.39 mmol/[facility] [place], KYPOC Lactic Acid0.92 mmol/L0.56 - 1.39 mmol/[facility] [place], [place]YPOC Lactic Acid1.00 mmol/L0.56 - 1.39 mmol/[facility] [place], KYMAGNESIUMon 07-11-2019 Magnesium [Mass/Vol]2.3 mg/dL1.6 - 2.6 mg/dLMercy Health [facility], KYMagnesiumon 73-99-1856Dqiglvcqk [Mass/Vol]2.3 mg/dLNormal1.6-2.6Mer[facility] Hospital Of San BernardinoComment on above:Performed By: #### CDP, PFA, CP, GLYHGB #### [employer] [address] [place] [address] Baseball Pitcher: Savage Jacob, MDMagnesium [Mass/Vol]2.0 mg/dLNormal1.6-2.6[facility] Of San BernardinoComment on above:Performed By: #### CDP, PFA, CP, GLYHGB #### [employer] [address] [place] [address] Baseball Pitcher: Savage Jacob MDMagnesium [Mass/Vol]2.0 mg/dL1.6 - 2.6 mg/dL [facility], KYNotification Panel, POCon 56-39-4177MigovhWhfpgyxmduquhha [facility], KYDate/Time07/11/201907:42:00[facility], KYNOTIFYnick [facility], KYREAD BACKMarietta Memorial Hospital, KYActionNotifyRNMMercy Health [facility], KYDate/Time07/11/201905:55:00[facility], KYNOTIFYmarieMePremier Health [facility], KYREAD BACKMarietta Memorial Hospital, KYOPERATIVE REPORTon [phone] REPORT[address] [address] OPERATIVE REPORT PATIENT NAME: ELEANOR MCCLAIN : 1950 MED REC NO: [id number] ROOM: 100 ACCOUNT NO: [id number] ADMIT DATE: 07/03/2019 PROVIDER: Caro Teresa MD [...] to complete the operation. CARO TERESA MD DD/V_SSPAR_T Doc#: [id number] CC:[address] [address] OPERATIVE REPORT PATIENT NAME: ELEANOR MCCLAIN : 1950 MED REC NO: [id number] ROOM: 1006 ACCOUNT NO: [id number] ADMIT DATE: 07/03/2019 PROVIDER: Caro Teresa MD [...] to perform this operation. CARO TERESA MD DD/Shana_SSPAR_T Doc#: [id number] CC:[address] [address] OPERATIVE REPORT PATIENT NAME: ELEANOR MCCLAIN : 1950 MED REC NO: [id number] ROOM: 1006 ACCOUNT NO: [id number] ADMIT DATE: 07/03/2019 PROVIDER: Caro Teresa MD [...] to me by Dr. Anshul Irizarry of [facility], who has been diagnosed with severe aortic [...] this operation. CARO TERESA MD DD/V_SSNKC_I Doc#: [id number] CC:[facility] Rehabilitationon 65-74-0450Jypowkqbwkqozg and review of laboratory resultsAbnoSumma Health Wadsworth [facility], KYInterpretation and review of laboratory resultsAbWilson Memorial Hospital, KYInterpretation and review of laboratory resultsAbWilson [facility], KYInterpretation and review of laboratory resultsAbWilson [facility], KYInterpretation and review of laboratory resultsAbWilson [facility], KYInterpretation and review of laboratory resultsAbWilson [facility], KYInterpretation and review of laboratory resultsAbWilson [facility], KYInterpretation and review of laboratory resultsAbWilson [facility], KYInterpretation and review of laboratory resultsAbWilson Memorial Hospital, KYPOC Glucose Fingerstick on 66-32-8910ZMN Xqbjyrg185 mg/dL65 - 105 mg/dLMercy Health [facility], KYPOCT Glucose on 74-96-2054RJN Sdavapu928 mg/pGZskh51 - 100 mg/dLMercy Health [facility], KYPOC Bnbmbry582 mg/gFNpfx88 - 100 mg/dLMercy Health [facility], KYPOC Zfxltph697 mg/qBRqfb73 - 100 mg/dLMercy Health [facility], KYPOC Mlmxceh831 mg/nSSzca13 - 100 mg/dLMercy Health [facility], KYPOC Vrpqqnk249 mg/kKYfpw86 - 100 mg/dLMercy Health [facility], KYPOC Tllrvtb061 mg/yFKusb80 - 100 mg/dLMercy Health [facility], KYPOC Wjhphun433 mg/zFKsbr77 - 100 mg/dLMercy Health [facility], KYPOC Picvakp881 mg/zLKzkk11 - 100 mg/dLMercy Health [facility], KYPOTASSIUM (POC)on 78-41-2175DUZ Potassium3.7 mmol/L3.5 - 4.5 mmol/[facility], KYPOC Potassium3.8 mmol/L3.5 - 4.5 mmol/[facility], KYPOC Potassium3.6 mmol/L3.5 - 4.5 mmol/[facility], KYPOC Potassium 3.1 mmol/LLow3.5 - 4.5 mmol/LMercy Health- [place], KYPOC Potassium3.2 mmol/LLow3.5 - 4.5 mmol/[facility] [place], KYPOC Potassium3.0 mmol/LLow3.5 - 4.5 mmol/[facility]- [place], KYPOC Potassium2.8 mmol/LCritically low3.5 - 4.5 mmol/[facility] [place], KYPOC Potassium3.0 mmol/LLow3.5 - 4.5 mmol/[facility] [place], KYPTon 63-80-7621IYI Coag (PPP) [Relative time]1.1 {INR}NormalAdena Fayette Medical CenterComment on above:Result Comment: Therapeutic Range: Moderate Anticoagulant Intensity: INR = 2.0-3.0 High Anticoagulant Intensity: INR = 2.5-3.5Performed By: #### CDP, PFA, CP, GLYHGB #### [employer] [address] [place] [address] Baseball Pitcher: RIGO Barahona Coag (PPP) [Time]11.7 sNormal9.0-12.0Adena Fayette Medical CenterComment on above:Performed By: #### CDP, PFA, CP, GLYHGB #### [employer] [address] [place] [address] Baseball Pitcher: HALEY Barahonahosphoruson 57-37-0900Tmuiihxqm [Mass/Vol]2.5 mg/dLLow2.6 - 4.5 mg/dLMercy Health [facility], KYPhosphorus, Inorg.on 07-11-2019 Phosphorus, Inorg.2.5 mg/dLLow2.6-4.5A[facility] Fayette Medical CenterComment on above:Performed By: #### CDP, PFA, CP, GLYHGB #### [employer] [address] [place] [address] Baseball Pitcher: Ric Barahonaime-INRon [phone] Coag (PPP) [Relative time]1.1 {INR}[facility], KYPT Coag (PPP) [Time]11.7 sMer[facility]- [place], KYSODIUM (POC)on 52-99-2421MAM Ihpwcl805 mmol/WDhyd645 - 146 mmol/[facility], KYPOC Ysseyu695 mmol/RCkaq908 - 146 mmol/[facility], KYPOC Qqwilt920 mmol/XKmlx798 - 146 mmol/[facility], KYPOC Zddevl833 mmol/BNvks541 - 146 mmol/[facility], KYPOC Xmgytz454 mmol/L138 - 146 mmol/[facility], KYPOC Xitnnq391 mmol/L138 - 146 mmol/[facility], KYPOC Yywplt729 mmol/L 138 - 146 mmol/[facility], KYPOC Bnmpyk095 mmol/L138 - 146 mmol/[facility], KYXR CHEST PORTABLEon 47-67-4219VM CHEST PORTABLEEXAMINATION: ONE XRAY VIEW OF THE CHEST 07/11/2019 [...] Signed by: Cyril Warner MD 07/11/19 Final resultNoUniversity Hospitals [facility], [facility], [facility], KYXR CHEST PORTABLEEXAMINATION: ONE XRAY VIEW OF THE CHEST 07/11/2019 [...] Signed by: Jesús Clemons MD 07/11/19 Final resultNoFort Hamilton HospitalXR CHEST PORTABLEEXAMINATION: ONE XRAY VIEW OF THE CHEST 07/11/2019 [...] Signed by: Александр Barreto MD 07/11/19 Final resultNoUniversity Hospitals [facility], [facility], [facility], [facility], [facility], [facility], [facility] [phone] Coag (Erlinda) [Time]38.1 sHigh20.5-30.5Adena Fayette Medical CenterComment on above:Performed By: #### CDP, PFA, CP, GLYHGB #### [employer] [address] [place], [place] [id number] Baseball Pitcher: Savage Madoff, MDaPTT Coag (Bld) [Time]38.1 [facility]- [place], KYInterpretation and review of laboratory resultsAbnoGerman Hospital- [place], KYaPTT Coag (Bld) [Time]41.6 [facility]h20.[facility]-[address] [place] [address] Comment on above:Performed By: #### CDP, PFA, CP, GLYHGB #### [employer] [facility] [place], [place] [id number] Baseball Pitcher: Shalom Barahonag (Bld) [Time]41.6 [facility] [place], KYInterpretation and review of laboratory resultsAbnoProMedica Flower Hospital [place], KYaPTT Coag (Bld) [Time]38.2 [facility] Hospitalh20.5-30.5[facility] Comment on above:Performed By: #### CDP, PFA, CP, GLYHGB #### [employer] [address] [place] [address] Baseball Pitcher: Shalom Barahona Coag (Bld) [Time]38.2 [facility] [place], KYInterpretation and review of laboratory resultsAbnoGerman Hospital- [place], KYAnion Gap (Calc) POCon 82-37-2505Ilpic gap [Moles/Vol]9 mmol/L7 - 16 mmol/L [facility]- [place], MNAnion gap [Moles/Vol]9 mmol/L7 - 16 mmol/LMUniversity Hospitals [facility]- [place], KYArterial Blood Gas, POCon 32-69-0529Dofba TestNOT REPORTEDWayne Hospital Health- [place], [place] NJX133.0[facility]- [place], KYModeNOT REPORTEDWayne Hospital [facility]- [place], KYNegative Base Excess, ArtNOT REPORTEDWayne Hospital Health- [place], KYO2 Device/Flow/%BIPAPWayne Hospital [facility]- [place], KYPOC LKD141.6 mmol/LHigh21 - 28 mmol/LMbarberton citizens hospitaly Health- [place], KYPOC O2 SAT95 %94 - 98 %[facility]- [place], MNPOC jQO993.8[facility]- [place], MNPO pCO2 TempNOT REPORTEDmm HgMercy Health- [place], MNPOC pH7.428[facility]- [place], [place]NPOC pH TempNOT REPORTEDMercy Health- [place], MNPOC PO273.3LowMercy Health- [place], MNPO pO2 TempNOT REPORTEDmm HgMercy Health- [place], KYPositive Base Excess, Lnd2IszyOypmr Health- [place], KYPt TempNOT REPORTEDMercy Health- [place], MNSample SiteArterial LineMercy Health- [place], MNTCO2 (calc), Art31 mmol/LHigh22 - 29 mmol/LMercy [facility]- [place], MNAllen Test NOT REPORTEDMercy Health- [place], KMTZW286.0[facility]- [place], MNModeNOT REPORTED [facility]- [place], KYNegative Base Excess, ArtNOT REPORTEDMercy Health- [place], MNO2 Device/Flow/%BIPAPMercy Health- [place], [facility] DKQ910.1 mmol/LHigh21 - 28 mmol/LMercy Health- [place], [facility] O2 SAT98 %94 - 98 %[facility] [place], [facility] sDW455.8[facility]- [place], [facility] pCO2 TempNOT REPORTEDmm HgMercy Health- [place], [facility] pH7.401[facility]- [place], [facility] pH TempNOT REPORTEDMercy Health- [place], [facility] DA2831.2[facility]- [place], [facility] pO2 TempNOT REPORTEDmm HgMercy Health- [place], MNPositive Base Excess, Leq6JpsxOrvdf Health- [place], MNPt TempNOT REPORTEDMercy Health- [place], [place] Sample SiteArterial LineMercy Health- [place], MNTCO2 (calc), Art31 mmol/LHigh22 - 29 mmol/LM[facility]- [place], MNAllen TestNOT REPORTEDMercy Health- [place], CJYGC243.0 [facility]- [place], MNModePRVCMercy Health- [place], KYNegative Base Excess, ArtNOT REPORTEDMercy Health- [place], MNO2 Device/Flow/%Adult VentilatorMer Health- [place], [place] POC XCI192.7 mmol/LHigh21 - 28 mmol/LMercy Health- [place], [facility] O2 SAT96 %94 - 98 % [facility]- [place], MNPOC eZD458.3HighMercy Health- [place], [facility] pCO2 TempNOT REPORTEDmm HgMercy Health- [place], [facility] pH7.337LowMercy Health- [place], [facility] pH Temp NOT REPORTEDMercy Health- [place], [facility] PO287.4[facility]- [place], MNPO pO2 TempNOT REPORTEDmm HgMercy Health- [place], MNPositive Base Excess, Wsg1IgyiUmyfl Health- [place], KYPt TempNOT REPORTEDMercy Health- [place], [facility] SiteLeft Radial ArteryMercy Health- [place], MNTCO2 (calc), Art32 mmol/LHigh22 - 29 mmol/LMercy Health- [place], [place] Graham TestNOT REPORTEDMercy Health- [place], MIZKE2182.0[facility]- [place], MNModeNOT REPORTEDMer[facility] Health- [place], KYNegative Base Excess, ArtNOT REPORTEDMercy Health- [place], MNO2 Device/Flow/%NRBMercy Health- [place], [facility] YIY288.0 mmol/LHigh21 - 28 mmol/LMercy Health- [place], [facility] O2 SAT96 %94 - 98 %[facility] [place], [facility] pCO2 62.8HighMercy Health- [place], [facility] pCO2 TempNOT REPORTEDmm HgMercy Health- [place], [place] POC pH7.315LowMercy Health- [place], [facility] pH TempNOT REPORTEDMercy Health- [place], [facility] PO293.5[facility]- [place], [facility] pO2 TempNOT REPORTEDmm HgMercy Health- [place], [place] Positive Base Excess, Mpx5QvzjOedtv Health- [place], MNPt TempNOT REPORTEDMercy Health- [place], [facility] Radial ArteryMercy Health- [place], MNTCO2 (calc), Art 34 mmol/LHigh22 - 29 mmol/LMercy Health- [place], [facility] Metabolic Panelon 97-79-7888Gjurh gap [Moles/Vol]16 mmol/L9 - 17 mmol/LMercy [facility]- [place], MNBun/Cre RatioNOT REPORTEDMercy Health- [place], MNCalcium [Mass/Vol]8.7 mg/dL8.6 - 10.4 mg/dLMercy Health- [place], MNChloride [Moles/Vol]109 mmol/LHigh98 - 107 mmol/LMercy Health- [place], KYCO2 [Moles/Vol]23 mmol/L20 - 31 mmol/[facility], [place] Creatinine [Mass/Vol]1.41 mg/dLHigh0.5 - 0.9 mg/dLMercy Health [facility], KYGFR Zqqjqtpa34 mL/minLow>60[facility], KYGFR CommentMercy Health [facility], KYGFR Non- Xqsutyqf03 mL/minLow>60[facility], KYGFR StagingNOT REPORTEDMercy Health [facility], KYGlucose [Mass/Vol]233 mg/tIBama42 - 99 mg/dLMercy Health [facility], KYInterpretation and review of laboratory resultsAbnormalMercy Health [facility], KYPotassium [Moles/Vol]4.0 mmol/L3.7 - 5.3 mmol/[facility], KYSodium [Moles/Vol]148 mmol/ISlnc872 - 144 mmol/[facility], KYUrea nitrogen [Mass/Vol]41 mg/dLHigh8 - 23 mg/dLMercy Health [facility], KYBasic Metabolic Profon 07-10-2019(cont.)NormalAdena Fayette Medical CenterComment on above: Result Comment: Average GFR for 70 or more years old: 75 mL/min/1.73sq m Chronic Kidney Disease: <60 mL/min/1.73sq m Kidney failure: <15 mL/min/1.73sq m eGFR calculated using average adult body mass. Additional eGFR calculator available at: http://www.[employer]/multiple_crcl_2011.htmPerformed By: #### CDP, PFA, CP, GLYHGB #### [employer] [address] [place], [place] [id number] Baseball Pitcher: Chayito Barahona gap [Moles/Vol]16 mmol/LNormal9-17A[facility] Fayette Medical CenterComment on above:Performed By: #### CDP, PFA, CP, GLYHGB #### [employer] [address] [place], [place] [id number] Baseball Pitcher: CASEY Barahonaalcium [Mass/Vol]8.7 mg/dLNormal8.6-10.4A[facility] Medical CenterComment on above:Performed By: #### CDP, PFA, CP, GLYHGB #### [facility] [employer] [address] [place] [address] Baseball Pitcher: Savage Jacob MDChloride [Moles/Vol]109 mmol/NWknq25-955YsrbpAdena Fayette Medical CenterComment on above:Performed By: #### CDP, PFA, CP, GLYHGB #### [facility] [employer] [address] [place] [address] Baseball Pitcher: Savage Jacob MDCO2 [Moles/Vol]23 mmol/HOwnhad32-06KelohAdena Fayette Medical CenterComment on above:Performed By: #### CDP, PFA, CP, GLYHGB #### [address] [address] Baseball Pitcher: CASEY Barahonareatinine [Mass/Vol]1.41 mg/dLHigh0.50-0.90 [facility] Medical CenterComment on above:Performed By: #### CDP, PFA, CP, GLYHGB #### [facility] [employer] [address] [place] [address] Baseball Pitcher: Savage Jacob MDGFR, Amer45 mL/minLow>60A[facility] Medical CenterComment on above:Performed By: #### CDP, PFA, CP, GLYHGB #### [facility] [employer] [address] [place] [address] Baseball Pitcher: Savage Jacob MDGFR,non Amer37 mL/minLow>60[facility] Medical CenterComment on above:Performed By: #### CDP, PFA, CP, GLYHGB #### [facility] [employer] [address] [place] [address] Baseball Pitcher: Savage Jacob MDGlucose [Mass/Vol]233 mg/iVJnil59-75UvfxjKeck Hospital of USCComment on above:Performed By: #### CDP, PFA, CP, GLYHGB #### [address] [address] Baseball Pitcher: HALEY Barahonaotassium [Moles/Vol]4.0 mmol/LNormal3.7-5.3 [facility] CenterComment on above:Performed By: #### CDP, PFA, CP, GLYHGB #### [address] [address] Baseball Pitcher: ZANA Barahonaodium [Moles/Vol]148 mmol/SOixx001-149IulbiAdena Fayette Medical CenterComment on above:Performed By: #### CDP, PFA, CP, GLYHGB #### [address] [address] Baseball Pitcher: Sherie Barahona nitrogen [Mass/Vol]41 mg/dLHigh8-23A[facility]ayette Medical CenterComment on above:Performed By: #### CDP, PFA, CP, GLYHGB #### [address] [address] Baseball Pitcher: FELICITY Barahona/CRE CyrusOT REPORTEDNormal9-20A[facility]ayette Medical CenterComment on above:Performed By: #### CDP, PFA, CP, GLYHGB #### [address] [address] Baseball Pitcher: ZANA Barahonataging:NOT REPORTEDNormalAdena Fayette Medical CenterComment on above:Performed By: #### CDP, PFA, CP, GLYHGB #### [facility] [employer] [address] [place] [address] Baseball Pitcher: CASEY BarahonaALCIUM, IONIC (POC)on 29-13-6054NOV Ionized Calcium1.21 mmol/L1.15 - 1.33 mmol/LMercy [facility], KYPOC Ionized Calcium1.21 mmol/L1.15 - 1.33 mmol/LMBrown Memorial Hospital KYCBCon 51-62-1123Hquezvljkeo distribution width (RBC) [Ratio]15.5 %High11.8-14.4A[facility] Fayette Medical CenterComment on above:Performed By: #### CDP, PFA, CP, GLYHGB #### [address] [address] Baseball Pitcher: Savage Jacob MDHematocrit (Bld) [Volume fraction]27.5 %Low 36.3-47.1MKeck Hospital of USCComment on above:Performed By: #### CDP, PFA, CP, GLYHGB #### [address] [address] Baseball Pitcher: Savage Jacob MDHemoglobin (Bld) [Mass/Vol]8.3 g/dLLow11.9-15.1 [facility] CenterComment on above:Performed By: #### CDP, PFA, CP, GLYHGB #### [address] [address] Baseball Pitcher: ALISSA BarahonaCH (RBC) [Entitic mass]28.7 bsOzntqv60.2-33.5 [facility] CenterComment on above:Performed By: #### CDP, PFA, CP, GLYHGB #### [facility] [employer] [address] [place] [address] Baseball Pitcher: JAIME BarahonaC (RBC) [Mass/Vol]30.2 g/uHZjjari87.4-34.8 [facility] CenterComment on above:Performed By: #### CDP, PFA, CP, GLYHGB #### [facility] [employer] [address] [place] [address] Baseball Pitcher: ALISSA BarahonaCV (RBC) [Entitic vol]95.2 pVDtxaoe00.6-102.9 [facility] CenterComment on above:Performed By: #### CDP, PFA, CP, GLYHGB #### [address] [address] Baseball Pitcher: ILANA Barahona Automated2.0 per 100 WBCHigh0.0A[facility] Fayette Medical CenterComment on above:Performed By: #### CDP, PFA, CP, GLYHGB #### [address] [address] Baseball Pitcher: Daniel Barahona mean volume (Bld) [Entitic vol]9.9 fL Normal8.1-13.5A[facility] Fayette Medical CenterComment on above:Performed By: #### CDP, PFA, CP, GLYHGB #### [address] [address] Baseball Pitcher: Rico Barahona (Bld) [#/Vol]237 10*3/mFIwfqgc051-397 [facility] CenterComment on above:Performed By: #### CDP, PFA, CP, GLYHGB #### [address] [address] Baseball Pitcher: MELISSA Barahona (Bld) [#/Vol]2.89 10*6/uLLow3.95-5.11[facility] Medical CenterComment on above:Performed By: #### CDP, PFA, CP, GLYHGB #### [address] [address] Baseball Pitcher: PETR Barahona (Bld) [#/Vol]14.3 10*3/uLHigh3.5-11.3MKeck Hospital of USCComment on above:Performed By: #### CDP, PFA, CP, GLYHGB #### [address] [address] Baseball Pitcher: Savage Jacob MDErythrocyte distribution width (RBC) [Ratio]15.5 %High11.8 - 14.4 %[facility], KYHematocrit (Bld) [Volume fraction]27.5 % Low36.3 - 47.1 %[facility] [place], KYHemoglobin (Bld) [Mass/Vol]8.3 g/dLLow11.9 - 15.1 g/dLMercy Health [facility], KYInterpretation and review of laboratory results AbnormalMercy Health [facility] Hospital, KYMCH (RBC) [Entitic mass]28.7 pg25.2 - 33.5 pgMercy Health Kings [facility] Hospital, KYMCHC (RBC) [Mass/Vol]30.2 g/dL28.4 - 34.8 g/dLMercy Health [facility] Hospital, [place] MCV (RBC) [Entitic vol]95.2 fL82.6 - 102.9 fLMercy Health Kings [facility] Hospital, MNPlatelet mean volume (Bld) [Entitic vol]9.9 fL8.1 - 13.5 fLMercy Health Kings [facility] Hospital, KYPlatelets (Bld) [#/Vol]237 10*3/uLMercy Health [facility], KYRBC (Bld) [#/Vol]2.89 10*6/uLLow3.95 - 5.11 m/uLUniversity Hospitals [facility]huja [facility]- [place], KYWBC (Bld) [#/Vol]14.3 10*3/uLHighMercy Health [facility], KYWBC (Bld) [#/Vol]2.0 10*3/uLHigh0.0 per 100 WBCMercy Health Kings [facility] Hospital, KYCHLORIDE (POC)on 14-52-1364OPM Cdlukkfn244 mmol/L98 - 107 mmol/LMDoctors Hospital [place], KYPOC Sqcizhqm848 mmol/L98 - 107 mmol/LMbarberton citizens hospitaly [facility]- [place], KYCT HEAD WO CONTRASTon [id number] HEAD WO CONTRASTEXAMINATION: CT OF THE HEAD WITHOUT CONTRAST 07/10/2019 [...] Signed by: Loki العلي MD 07/10/19 Final resultNormalClermont County Hospital- [place], [facility]- [place], [facility]- [place], KYCreatinine W/GFR Point of Careon [id number] Tmcbhhx46 mL/minLow>60[facility]- [place], KYGFR CommentDayton [facility] [place], [place]GFR Non- Opgkfhdh08 mL/minLow>60[facility] [place], KYPOC Creatinine1.39 mg/dL High0.51 - 1.19 mg/dLDayton Children'S Hospital [place], KYGFR Cttvlqn49 mL/minLow>60[facility]- [place], KYGFR CommentDayton Children'S Hospital [place], [place]GFR Non- Staiafqm74 mL/minLow>60 [facility]- [place], KYPOC Creatinine1.44 mg/dLHigh0.51 - 1.19 mg/dLDayton Children'S Hospital [place], KYEKG 12 Leadon [id number] Gibl11XZZYtcqa Health- [place], KYP Axis60 degreesUniversity Hospitals Ahuja [facility]- [place], KYP-R Imgydqcy140 [facility]- [place], KYQ-T Zucivnvk968 [facility]- [place], KYQRS Xgdqseli28 [facility]- [place], KYQTc Calculation (Chandrika)448 [facility]- [place], KYR Hacc00gplrfshZpqhk Health- [place], KYT Axis33 degreesUniversity Hospitals Ahuja [facility]- [place], KYVentricular Muao82CQJHhxbd Health- [place], KYUniversity [facility]- [place], KYUniversity [facility]- [place], KYHemoglobin and hematocrit, bloodon 07-10-2019 POC Xljcihdmum99 %Low36 - 46 %[facility] [place], KYPOC Hemoglobin8.4 g/dLLow12 - 16 g/dLDayton Children'S Hospital [place], KYPOC Qzascfanbg40 %Low36 - 46 %[facility] [place], KYPOC Hemoglobin8.5 g/dLLow12 - 16 g/dLDayton Children'S Hospital [place], KYLactic Acid, POCon [id number] Lactic Acid0.87 mmol/L0.56 - 1.39 mmol/[facility] [place], KYPOC Lactic Acid0.69 mmol/L0.56 - 1.39 mmol/[facility] [place], KYPOC Lactic Acid0.47 mmol/LLow0.56 - 1.39 mmol/[facility] [place], KYPOC Lactic Acid0.32 mmol/LLow0.56 - 1.39 mmol/LMDoctors Hospital [place], KYMagnesiumon 82-16-1930Wtteyuuhg [Mass/Vol]2.2 mg/dLNormal1.6-2.6Mbarberton citizens hospitaly Community Hospital Of San BernardinoComment on above:Performed By: #### CDP, PFA, CP, GLYHGB #### [facility] [address] [place] [address] Baseball Pitcher: Savage Jacob, MDMagnesium [Mass/Vol]2.2 mg/dL1.6 - 2.6 mg/dL [facility], KYOtheron 07-73-1034Eoboeclkhbrolf and review of laboratory resultsAbWilson Memorial Hospital, KYInterpretation and review of laboratory resultsAbWilson Memorial Hospital, KYInterpretation and review of laboratory resultsAbWilson [facility] Hospital, KYInterpretation and review of laboratory resultsAbWilson Memorial Hospital, KYPOC Glucose Fingerstickon 07-10-2019 Interpretation and review of laboratory resultsAbWilson Memorial Hospital, KYPOC Pxsecbf696 mg/eQZvte43 - 105 mg/dLMercy Health [facility], KYInterpretation and review of laboratory resultsAbnormHolzer Hospital, KYPOC Teycumx234 mg/hXZaob27 - 105 mg/dLMercy Health [facility], KYInterpretation and review of laboratory results AbnormalMercy Health [facility], KYPOC Wggnunq096 mg/kFGtnk34 - 105 mg/dLMercy Health [facility], KYInterpretation and review of laboratory resultsAbnormHolzer Hospital, KYPOC Pzwomhj906 mg/dGXqul68 - 105 mg/dLMercy Health [facility], KYInterpretation and review of laboratory resultsAbnormHolzer Hospital, KYPOC Mpanlzq113 mg/dLHigh 65 - 105 mg/dLMercy Health [facility], KYPOCT Glucoseon 37-95-0390QLC Pesurlv521 mg/dL High74 - 100 mg/dLMercy Health Kings [facility], KYPOC Lcaqjts728 mg/cZEqgj08 - 100 mg/dL [facility], KYPOC Viiwnjm743 mg/qEBmlg02 - 100 mg/dLMercy Health [facility], [place] POC Uraepzo212 mg/kVXscq62 - 100 mg/dLMercy Health Kings [facility], KYPOTASSIUM (POC)on 31-14-2405RBA Potassium3.7 mmol/L3.5 - 4.5 mmol/LMMercy Health [facility], KYPOC Potassium3.7 mmol/L3.5 - 4.5 mmol/LMMercy Health [facility], KYPTon 11-01-4841ZTQ Coag (PPP) [Relative time]1.4 {INR}NormalAdena Fayette Medical CenterComment on above:Result Comment: Therapeutic Range: Moderate Anticoagulant Intensity: INR = 2.0-3.0 High Anticoagulant Intensity: INR = 2.5-3.5Performed By: #### CDP, PFA, CP, GLYHGB #### [facility] [address] [place] [address] [phone] Baseball Pitcher: RIGO Barahona Coag (PPP) [Time]14.3 sHigh9.0-12.0A[facility] Fayette Medical CenterComment on above:Performed By: #### CDP, PFA, CP, GLYHGB #### [facility] [address] [place] [address] Baseball Pitcher: Reinaldo Barahona [phone] [Mass/Vol]3.2 mg/dL2.6 - 4.5 mg/dLMercy Health Kings [facility], KYPhosphorus, Inorg.on 07-10-2019 Phosphorus, Inorg.3.2 mg/dLNormal2.6-4.5A[facility] Fayette Medical CenterComment on above:Performed By: #### CDP, PFA, CP, GLYHGB #### [employer] [address] [place], [place] [phone] Baseball Pitcher: HALEY Barahonarotime-INRon [phone] Coag (PPP) [Relative time]1.4 {INR}[facility], KYInterpretation and review of laboratory resultsAbWilson Memorial Hospital, KYPT Coag (PPP) [Time]14.3 [facility], KYSODIUM (POC)on 47-68-3374SNS Fsxdjm226 mmol/L138 - 146 mmol/LMMercy Health [facility], KYPOC Otdmas172 mmol/L138 - 146 mmol/[facility], KYXR CHEST PORTABLE on [id number] CHEST PORTABLEEXAMINATION: ONE XRAY VIEW OF THE CHEST 07/10/2019 [...] Signed by: Blas Zimmer MD 07/10/19 Final resultNormalMarymount Hospital, [facility], KYMercy Health- [place], KYAPTTon [id number] Coag (Bld) [Time]37.4 s High20.5-30.5A[facility] Fayette Medical CenterComment on above:Performed By: #### CDP, PFA, CP, GLYHGB #### [employer] [address] [place] [address] [phone] Baseball Pitcher: Delfino BarahonaT Coag (Bld) [Time]37.4 [facility]- [place], KYInterpretation and review of laboratory resultsAbnormDayton Children's Hospital- [place], KYaPTT Coag (Bld) [Time]35.2 sHigh20.5-30.5[facility] Comment on above:Performed By: #### CDP, PFA, CP, GLYHGB #### [employer] [address] [place] [address] [phone] Baseball Pitcher: Savage Jacob MDaPTJuanita Coag (Bld) [Time]35.2 [facility]- [place], KYAmmoniaon 76-51-1616Xqtwjar (P) [Mass/Vol]40 umol/KDwkzqm25-62KsxugAdena Fayette Medical CenterComment on above:Performed By: #### CDP, PFA, CP, GLYHGB #### [employer] [address] [place] [address] [phone] Baseball Pitcher: Rain Barahonal Blood Gas, POCon 51-68-1513Rcfbi Test NOT REPORTEDWay[facility]- [place], GZMKX617.0[facility]- [place], KYInterpretation and review of laboratory resultsAbnormalWayne Hospital Health- [place], KYModeNOT REPORTEDMercy Health- [place], KYNegative Base Excess, ArtNOT REPORTEDMercy Health- [place], KYO2 Device/Flow/%BIPAPMercy Health- [place], KYPOC QZV693.0 mmol/L21 - 28 mmol/LMercy Health- [place], KYPOC O2 SAT97 %94 - 98 %[facility]- [place], KYPOC wRN676.0HighMer Health- [place], KYPO pCO2 TempNOT REPORTEDmm HgMercy Health- [place], KY[facility] pH7.348Low [facility]- [place], [facility] pH TempNOT REPORTEDMercy Health- [place], KY[facility] PO296.3[facility]- [place], KYPO pO2 TempNOT REPORTEDmm HgMercy Health- [place], KYPositive Base Excess, Hoa8Jdxxv Health- [place], KYPt TempNOT REPORTEDMercy Health- [place], KYSample SiteArterial LineMercy Health- [place], KYTCO2 (calc), Art30 mmol/LHigh22 - 29 mmol/L [facility]- [place], [facility] METABOLIC PANELon 82-46-1260Ievuo gap [Moles/Vol]13 mmol/L9 - 17 mmol/LMercy Health- [place], KYBun/Cre RatioNOT REPORTEDMer Health- [place], KYCalcium [Mass/Vol]8.3 mg/dLLow8.6 - 10.4 mg/dLWayne Hospital Health- [place], KYChloride [Moles/Vol]106 mmol/L98 - 107 mmol/LMercy Health- [place], KYCO2 [Moles/Vol]25 mmol/L20 - 31 mmol/LMercy Health- [place], KYCreatinine [Mass/Vol]1.32 mg/dLHigh0.5 - 0.9 mg/dLWayne Hospital [facility]- [place], KYGFR Szihwlld09 mL/minLow>60[facility] Centercy Health- [place], KYGFR CommentMer Health- [place], KYGFR Non- Lhqcjwdw52 mL/minLow>60 [facility]- [place], KYGFR StagingNOT REPORTEDMer Health- [place], KYGlucose [Mass/Vol]205 mg/lNWdtx43 - 99 mg/dLWayne Hospital [facility]- [place], KYPotassium [Moles/Vol]3.9 mmol/L3.7 - 5.3 mmol/LMercy Health- [place], KYSodium [Moles/Vol]144 mmol/L135 - 144 mmol/LMercy Health- [place], KYUrea nitrogen [Mass/Vol]46 mg/dLHigh8 - 23 mg/dLWayne Hospital [facility]- [place], [facility] Metabolic Profon 07-09-2019(cont.)[facility] Municipal HospitalComment on above:Result Comment: Average GFR for 70 or more years old: 75 mL/min/1.73sq m Chronic Kidney Disease: <60 mL/min/1.73sq m Kidney failure: <15 mL/min/1.73sq m eGFR calculated using average adult body mass. Additional eGFR calculator available at: http://www.[employer].com/multiple_crcl_2012.htmPerformed By: #### CDP, PFA, CP, GLYHGB #### [facility]Near[facility] [address] [place] [address] Baseball Pitcher: Savage Jacob MDAnion gap [Moles/Vol]13 mmol/LNormal9-17A[facility] Medical CenterComment on above:Performed By: #### CDP, PFA, CP, GLYHGB #### [facility] [address] [place] [address] Baseball Pitcher: Savage Jacob MDCalcium [Mass/Vol]8.3 mg/dLLow8.6-10.4A[facility]ayette Medical CenterComment on above:Performed By: #### CDP, PFA, CP, GLYHGB #### [facility] [address] [place] [address] Baseball Pitcher: Savage Jacob MDChloride [Moles/Vol]106 mmol/SUhupaz45-707GxaddAdena Fayette Medical CenterComment on above:Performed By: #### CDP, PFA, CP, GLYHGB #### [facility] [address] [place] [address] Baseball Pitcher: Savage Jacob MDCO2 [Moles/Vol]25 mmol/CCcqxdt12-97UwudzAdena Fayette Medical CenterComment on above:Performed By: #### CDP, PFA, CP, GLYHGB #### [facility] [address] [place] [address] Baseball Pitcher: Savage Jacob MDCreatinine [Mass/Vol]1.32 mg/dLHigh0.50-0.90 [facility] CenterComment on above:Performed By: #### CDP, PFA, CP, GLYHGB #### [facility] [address] [place] [address] Baseball Pitcher: Savage Jacob MDGFR, Amer48 mL/minLow>60[facility] Medical CenterComment on above:Performed By: #### CDP, PFA, CP, GLYHGB #### [facility] [address] [place] [address] Baseball Pitcher: Savage Jacob MDGFR,non Amer40 mL/minLow>60[facility] Medical CenterComment on above:Performed By: #### CDP, PFA, CP, GLYHGB #### [address] [address] Baseball Pitcher: Savage Jacob MDGlucose [Mass/Vol]205 mg/gMChek24-70VxejwKeck Hospital of USCComment on above:Performed By: #### CDP, PFA, CP, GLYHGB #### [address] [address] Baseball Pitcher: HALEY Barahonaotassium [Moles/Vol]3.9 mmol/LNormal3.7-5.3 [facility] CenterComment on above:Performed By: #### CDP, PFA, CP, GLYHGB #### [address] [address] Baseball Pitcher: ZANA Barahonaodium [Moles/Vol]144 mmol/YDuoibo776-426NhmbgAdena Fayette Medical CenterComment on above:Performed By: #### CDP, PFA, CP, GLYHGB #### [address] [address] Baseball Pitcher: Savage Jacob MDUrea nitrogen [Mass/Vol]46 mg/dLHigh8-23A[facility]ayette Medical CenterComment on above:Performed By: #### CDP, PFA, CP, GLYHGB #### [address] [address] Baseball Pitcher: FELICITY Barahona/CRE RatioNOT REPORTEDNormal9-20[facility] Medical CenterComment on above:Performed By: #### CDP, PFA, CP, GLYHGB #### [facility] [address] [place] [address] Baseball Pitcher: ZANA Barahonataging:NOT REPORTEDNormalAdena Fayette Medical CenterComment on above:Performed By: #### CDP, PFA, CP, GLYHGB #### [facility] [address] [place] [address] Baseball Pitcher: Ulysses Barahona 88-26-3583Bvbervzhsch distribution width (RBC) [Ratio]15.3 %High11.8-14.4A[facility]ayette Medical CenterComment on above:Performed By: #### CDP, PFA, CP, GLYHGB #### [facility] [address] [place] [address] Baseball Pitcher: Savage Jacob MDHematocrit (Bld) [Volume fraction]25.9 %Low 36.3-47.1MKeck Hospital of USCComment on above:Performed By: #### CDP, PFA, CP, GLYHGB #### [facility]Near[facility] [address] [place] [address] Baseball Pitcher: Savage Jacob MDHemoglobin (Bld) [Mass/Vol]8.3 g/dLLow11.9-15.1 [facility] CenterComment on above:Performed By: #### CDP, PFA, CP, GLYHGB #### [facility] [address] [place] [address] Baseball Pitcher: ALISSA BarahonaCH (RBC) [Entitic mass]29.5 uzGzihkr99.2-33.5 [facility] CenterComment on above:Performed By: #### CDP, PFA, CP, GLYHGB #### [address] [address] Baseball Pitcher: ALISSA BarahonaCHC (RBC) [Mass/Vol]32.0 g/gLIqttlx67.4-34.8 [facility] CenterComment on above:Performed By: #### CDP, PFA, CP, GLYHGB #### [address] [address] Baseball Pitcher: ALISSA BarahonaCV (RBC) [Entitic vol]92.2 yLNdcqct78.6-102.9 [facility] CenterComment on above:Performed By: #### CDP, PFA, CP, GLYHGB #### [address] [address] Baseball Pitcher: Savage Jacob MDNRBC Automated1.2 per 100 WBCHigh0.0A[facility] Fayette Medical CenterComment on above:Performed By: #### CDP, PFA, CP, GLYHGB #### [address] [address] Baseball Pitcher: Daniel Barahona mean volume (Bld) [Entitic vol]10.2 fL Normal8.1-13.5A[facility] Medical CenterComment on above:Performed By: #### CDP, PFA, CP, GLYHGB #### [address] [address] Baseball Pitcher: Taylor Barahonatejimbo (Bld) [#/Vol]188 10*3/lUEkasqa624-531 [facility] CenterComment on above:Performed By: #### CDP, PFA, CP, GLYHGB #### [address] [address] Baseball Pitcher: ISABELLE BarahonaBC (Bld) [#/Vol]2.81 10*6/uLLow3.95-5.11[facility] Medical CenterComment on above:Performed By: #### CDP, PFA, CP, GLYHGB #### [employer] [address] [place], [place] [id number] Baseball Pitcher: Savage Jacbo MDWBC (Bld) [#/Vol]11.2 10*3/uLNormal3.5-11.3Mer[facility] Hospital Of San BernardinoComment on above:Performed By: #### CDP, PFA, CP, GLYHGB #### [employer] [address] [place], [place] [phone] Baseball Pitcher: Savage Jacob MDErythrocyte distribution width (RBC) [Ratio]15.3 %High11.8 - 14.4 %[facility], KYHematocrit (Bld) [Volume fraction]25.9 % Low36.3 - 47.1 %[facility], MNHemoglobin (Bld) [Mass/Vol]8.3 g/dLLow11.9 - 15.1 g/dLMercy Health [facility], MNInterpretation and review of laboratory results AbnormalUK HealthcareH (RBC) [Entitic mass]29.5 pg25.2 - 33.5 pgMercy Health [facility], MNMCHC (RBC) [Mass/Vol]32.0 g/dL28.4 - 34.8 g/dLMercy Health [facility], [place] MCV (RBC) [Entitic vol]92.2 fL82.6 - 102.9 fLMercy Health [facility] Hospital, MNPlatelet mean volume (Bld) [Entitic vol]10.2 fL8.1 - 13.5 fLMercy Health Kings [facility] Hospital, KYPlatelets (Bld) [#/Vol]188 10*3/uLMercy Health [facility], KYRBC (Bld) [#/Vol]2.81 10*6/uLLow3.95 - 5.11 m/[facility], KYWBC (Bld) [#/Vol]11.2 10*3/uLMercy Health [facility], KYWBC (Bld) [#/Vol]1.2 10*3/uLHigh0.0 per 100 WBCMercy Health Kings [facility] Hospital, KYErythrocyte distribution width (RBC) [Ratio]15.2 %High11.8-14.4A[facility] Medical CenterComment on above:Performed By: #### CDP, PFA, CP, GLYHGB #### [facility] [address] [place] [address] Baseball Pitcher: Savage Jacob MDHematocrit (Bld) [Volume fraction]26.1 %Low 36.3-47.1MKeck Hospital of USCComment on above:Performed By: #### CDP, PFA, CP, GLYHGB #### [address] [address] Baseball Pitcher: Savage Jacob MDHemoglobin (Bld) [Mass/Vol]8.2 g/dLLow11.9-15.1 [facility] CenterComment on above:Performed By: #### CDP, PFA, CP, GLYHGB #### [facility] [address] [place] [address] Baseball Pitcher: ALISSA BarahonaCH (RBC) [Entitic mass]28.7 yiEthndu78.2-33.5 [facility] CenterComment on above:Performed By: #### CDP, PFA, CP, GLYHGB #### [facility] [address] [place] [address] Baseball Pitcher: ALISSA BarahonaCHC (RBC) [Mass/Vol]31.4 g/qRYueevf81.4-34.8 [facility] CenterComment on above:Performed By: #### CDP, PFA, CP, GLYHGB #### [facility] [address] [place] [address] Baseball Pitcher: ALISSA BarahonaCV (RBC) [Entitic vol]91.3 pPEamvde10.6-102.9 [facility] CenterComment on above:Performed By: #### CDP, PFA, CP, GLYHGB #### [facility] [address] [place] [address] Baseball Pitcher: Savage Jacob MDNRBC Automated1.0 per 100 WBCHigh0.0A[facility] Medical CenterComment on above:Performed By: #### CDP, PFA, CP, GLYHGB #### [address] [address] Baseball Pitcher: Taylor Barahonatelet mean volume (Bld) [Entitic vol]9.9 fL Normal8.1-13.5A[facility] Medical CenterComment on above:Performed By: #### CDP, PFA, CP, GLYHGB #### [address] [address] Baseball Pitcher: Taylor Barahonatelets (Bld) [#/Vol]173 10*3/zHJdbzxw108-382 [facility] CenterComment on above:Performed By: #### CDP, PFA, CP, GLYHGB #### [address] [address] Baseball Pitcher: ISABELLE BarahonaBC (Bld) [#/Vol]2.86 10*6/uLLow3.95-5.11[facility] Medical CenterComment on above:Performed By: #### CDP, PFA, CP, GLYHGB #### [address] [address] Baseball Pitcher: Savage Jacob MDWBC (Bld) [#/Vol]11.1 10*3/uLNormal3.5-11.3MKeck Hospital of USCComment on above:Performed By: #### CDP, PFA, CP, GLYHGB #### [address] [address] Baseball Pitcher: Savage Jacob MDErythrocyte distribution width (RBC) [Ratio]15.2 %High11.8 - 14.4 %[place], KYHematocrit (Bld) [Volume fraction]26.1 % Low36.3 - 47.1 %[facility], MNHemoglobin (Bld) [Mass/Vol]8.2 g/dLLow11.9 - 15.1 g/dLMercy Health Kings [facility], MNInterpretation and review of laboratory results AbnormalMercy Health Kings [facility] Hospital, [facility] MIAMIH (RBC) [Entitic mass]28.7 pg25.2 - 33.5 pgMercy Health Kings [facility], MNMCHC (RBC) [Mass/Vol]31.4 g/dL28.4 - 34.8 g/dLMercy Health Kings [facility], [place] MCV (RBC) [Entitic vol]91.3 fL82.6 - 102.9 fLQueen Anne, KYPlatelet mean volume (Bld) [Entitic vol]9.9 fL8.1 - 13.5 fLMercy Health Kings [facility], MNPlatelets (Bld) [#/Vol]173 10*3/uLMercy Health [facility], MNRBC (Bld) [#/Vol]2.86 10*6/uLLow3.95 - 5.11 m/uLMercy Health [facility], MNWBC (Bld) [#/Vol]11.1 10*3/uLMercy Health [facility], [place] WBC (Bld) [#/Vol]1.0 10*3/uLHigh0.0 per 100 WBCMercy Health Kings Mills Hospital, MNComp Metabolic Profon 07-09-2019(cont.)NormalAdena Fayette Medical CenterComment on above:Result Comment: Average GFR for 70 or more years old: 75 mL/min/1.73sq m Chronic Kidney Disease: <60 mL/min/1.73sq m Kidney failure: <15 mL/min/1.73sq m eGFR calculated using average adult body mass. Additional eGFR calculator available at: http://www.[employer]/multiple_crcl_2012.htmPerformed By: #### CDP, PFA, CP, GLYHGB #### [employer] [address] [place] [address] Baseball Pitcher: Savage Jacob MDAlbumin [Mass/Vol]3.3 g/dLLow3.5-5.2Mbarberton citizens hospitaly [facility] Hospital Of San BernardinoComment on above:Performed By: #### CDP, PFA, CP, GLYHGB #### [facility] [address] [place] [address] Baseball Pitcher: Savage Jacob MDAlbumin/Globulin [Mass ratio]1.4 {ratio}Normal 1.0-2.5A[facility] Medical CenterComment on above:Performed By: #### CDP, PFA, CP, GLYHGB #### [address] [address] Baseball Pitcher: Savage Jacob MDAlkaline Phos67 U/IZawttm71-728ZpdsuAdena Fayette Medical CenterComment on above:Performed By: #### CDP, PFA, CP, GLYHGB #### [facility] [address] [place] [address] Baseball Pitcher: Savage Jacob MDALT [Catalytic activity/Vol]17 U/LNormal5-33 [facility] CenterComment on above:Performed By: #### CDP, PFA, CP, GLYHGB #### [facility] [address] [place] [address] Baseball Pitcher: Savage Jacob MDAnion gap [Moles/Vol]11 mmol/LNormal9-17[facility] CenterComment on above:Performed By: #### CDP, PFA, CP, GLYHGB #### [facility] [address] [place] [address] Baseball Pitcher: Savage Jacob MDAST [Catalytic activity/Vol]29 U/LNormal<32A[facility] Medical CenterComment on above:Performed By: #### CDP, PFA, CP, GLYHGB #### [facility] [address] [place] [address] Baseball Pitcher: Savage Jacob MDBilirubin Ql (U)0.36 mg/dLNormal0.3-1.2MKeck Hospital of USCComment on above:Performed By: #### CDP, PFA, CP, GLYHGB #### [facility] [address] [place] [address] Baseball Pitcher: CASEY Barahonaalcium [Mass/Vol]8.6 mg/dLNormal8.6-10.4[facility] Medical CenterComment on above:Performed By: #### CDP, PFA, CP, GLYHGB #### [facility] [address] [place] [address] Baseball Pitcher: Savage Jacob MDChloride [Moles/Vol]107 mmol/COmthgc54-505QzipgAdena Fayette Medical CenterComment on above:Performed By: #### CDP, PFA, CP, GLYHGB #### [place] [address] Baseball Pitcher: Savage Jacob MDCO2 [Moles/Vol]24 mmol/LHsycpa41-74JoqekAdena Fayette Medical CenterComment on above:Performed By: #### CDP, PFA, CP, GLYHGB #### [facility] [address] [place] [address] Baseball Pitcher: CASEY Barahonareatinine [Mass/Vol]1.48 mg/dLHigh0.50-0.90 [facility] CenterComment on above:Performed By: #### CDP, PFA, CP, GLYHGB #### [facility] [address] [place] [address] Baseball Pitcher: SALLY Barahona, Amer42 mL/minLow>60[facility] CenterComment on above:Performed By: #### CDP, PFA, CP, GLYHGB #### [facility] [address] [place] [address] Baseball Pitcher: Savage Madoff, MDGFR,non Amer35 mL/minLow>60[facility] CenterComment on above:Performed By: #### CDP, PFA, CP, GLYHGB #### [address] [address] Baseball Pitcher: Savage Jacob MDGlucose [Mass/Vol]179 mg/hEArel01-54LbupmKeck Hospital of USCComment on above:Performed By: #### CDP, PFA, CP, GLYHGB #### [place] [address] Baseball Pitcher: Savage Jacob MDPotassium [Moles/Vol]3.7 mmol/LNormal3.7-5.3 [facility] CenterComment on above:Performed By: #### CDP, PFA, CP, GLYHGB #### [place] [address] Baseball Pitcher: Savage Jacob MDProtein [Mass/Vol]5.7 g/dLLow6.4-8.3MKeck Hospital of USCComment on above:Performed By: #### CDP, PFA, CP, GLYHGB #### [place] [address] Baseball Pitcher: Savage Jacob MDSodium [Moles/Vol]142 mmol/XCemyre328-218GdkghAdena Fayette Medical CenterComment on above:Performed By: #### CDP, PFA, CP, GLYHGB #### [place] [address] Baseball Pitcher: Savage Jacob MDUrea nitrogen [Mass/Vol]46 mg/dLHigh8-23[facility] Medical CenterComment on above:Performed By: #### CDP, PFA, CP, GLYHGB #### [address] [address] Baseball Pitcher: ELMER BarahonaN/CRE RatioNOT REPORTEDNormal9-20MerProvidence Tarzana Medical CenterComment on above:Performed By: #### CDP, PFA, CP, GLYHGB #### [facility] [address] [place], [place] [id number] Baseball Pitcher: ZANA Barahonataging:NOT REPORTEDNormalAdena Fayette Medical CenterComment on above:Performed By: #### CDP, PFA, CP, GLYHGB #### [facility] [address] [place], [place] [id number] Baseball Pitcher: Savage Jacob [facility] – BUFFALOomprehensive Metabolic Panelon 07-09-2019 Albumin [Mass/Vol]3.3 g/dLLow3.5 - 5.2 g/dLMercy Health- [place], KYAlbumin/Globulin [Mass ratio]1.4 {ratio}[facility]- [place], KYALP [Catalytic activity/Vol]67 U/L35 - 104 U/LMercy Health- [place], KYALT [Catalytic activity/Vol]17 U/L5 - 33 U/LMercy Health- [place], KYAnion gap [Moles/Vol]11 mmol/L9 - 17 mmol/LMercy Health- [place], KYAST [Catalytic activity/Vol]29 U/L<32[facility]- [place], KYBilirubin Ql (U)0.36 mg/dL 0.3 - 1.2 mg/dLMercy Health- [place], KYBun/Cre RatioNOT REPORTEDMercy Health- [place], [place] Calcium [Mass/Vol]8.6 mg/dL8.6 - 10.4 mg/dLMercy Health- [place], KYChloride [Moles/Vol]107 mmol/L98 - 107 mmol/LMercy Health- [place], KYCO2 [Moles/Vol]24 mmol/L 20 - 31 mmol/LMercy Health- [place], KYCreatinine [Mass/Vol]1.48 mg/dLHigh0.5 - 0.9 mg/dLMercy Health- [place], KYGFR Pfievfqu49 mL/minLow>60[facility] [place] GFR CommentMercy Health- [place], KYGFR Non- Dhiuwxmt68 mL/minLow>60[facility]- [place], KYGFR StagingNOT REPORTEDMercy Health- [place], [place]Glucose [Mass/Vol]179 mg/lYGdsr28 - 99 mg/dLMercy Health- [place], KYPotassium [Moles/Vol]3.7 mmol/L3.7 - 5.3 mmol/LMer[facility]- [place], [place]Protein [Mass/Vol]5.7 g/dLLow6.4 - 8.3 g/dLMercy Health- [place], KYSodium [Moles/Vol]142 mmol/L135 - 144 mmol/LMercy [facility]- [place], [place] Urea nitrogen [Mass/Vol]46 mg/dLHigh8 - 23 mg/dLMercy Health- [place], KYEKG 12 Lead on [id number] [id number] Health- [place], KYAtrial Fphx213YPIFifok Health- [place], KYP Tuii66yojjzuvRkvdq [facility]- [place], KYP-R Xcsuedro035 msMercy Health- [place], [place] Q-T Gvvndneu091 msMercy Health- [place], KYQ-T Knmodlez391 msMercy Health- [place], KYQRS Kmgufyie16 msMercy [facility]- [place], KYQRS Qguzceua23 msMercy Health- [place], KYQTc Calculation (Bazett)464 msMercy Health- [place], KYQTc Calculation (Bazett)447 ms [facility] [place], KYR Pdks05tjthumxOsxdv Health- [place], [place] Fvpg90pijdqkbXhlma Health- [place], KYT Otuc9dlfeezaGucfj Health- [place], KYT [place]-24degreesMercy Health- [place], KYVentricular Yuiu08MDUPlddu Health- [place], KYVentricular Nwah45QBGLdvtk Health- [place], KYLactic Acid, POCon 57-94-0789YIL Lactic Acid0.64 mmol/L0.56 - 1.39 mmol/LMercy Health- [place], KYLiver Profileon 35-72-0687Fmxulvu [Mass/Vol]3.3 g/dL Low3.5-5.2Mbarberton citizens hospitaly Community Hospital Of San BernardinoComment on above:Performed By: #### CDP, PFA, CP, GLYHGB #### [facility] [place] [id number] Baseball Pitcher: Savage Jacob, MDAlbumin/Globulin [Mass ratio]1.5 {ratio}Normal 1.0-2.5A[facility] Fayette Medical CenterComment on above:Performed By: #### CDP, PFA, CP, GLYHGB #### [facility] [address] [place] [address] Baseball Pitcher: Yanna Barahonakaline Phos57 U/EZfrmgj14-322CvqyvAdena Fayette Medical CenterComment on above:Performed By: #### CDP, PFA, CP, GLYHGB #### [facility] [address] [place] [address] Baseball Pitcher: Savage Jacob MDALT [Catalytic activity/Vol]17 U/LNormal5-33 [facility] CenterComment on above:Performed By: #### CDP, PFA, CP, GLYHGB #### [address] [address] Baseball Pitcher: Savage Jacob MDAST [Catalytic activity/Vol]31 U/LNormal<32A[facility]ayette Medical CenterComment on above:Performed By: #### CDP, PFA, CP, GLYHGB #### [facility] [address] [place] [address] Baseball Pitcher: Savage Jacob MDBilirubin Ql (U)0.38 mg/dLNormal0.3-1.2MKeck Hospital of USCComment on above:Performed By: #### CDP, PFA, CP, GLYHGB #### [facility] [address] [place] [address] Baseball Pitcher: Sammie Barahonairubin, Indirect0.25 mg/dLNormal0.00-1.00 [facility] CenterComment on above:Performed By: #### CDP, PFA, CP, GLYHGB #### [facility] [address] [place] [address] Baseball Pitcher: Savage Madoff, MDBilirubin.direct [Mass/Vol]0.13 mg/dLNormal<0.31 [facility] CenterComment on above:Performed By: #### CDP, PFA, CP, GLYHGB #### [facility] [address] [place] [address] Baseball Pitcher: Savage Jacob MDProtein [Mass/Vol]5.5 g/dLLow6.4-8.3MKeck Hospital of USCComment on above:Performed By: #### CDP, PFA, CP, GLYHGB #### [facility]Near[facility] [address] [place] [address] Baseball Pitcher: Savage Jacob MDGlobulin (S) [Mass/Vol]NOT REPORTEDNormal1.5-3.8 [facility] CenterComment on above:Performed By: #### CDP, PFA, CP, GLYHGB #### [facility] [address] [place] [address] Baseball Pitcher: Miles Barahonagnesiumon 33-82-2566Hgfoqzobt [Mass/Vol]2.3 mg/dLNormal1.6-2.6MKeck Hospital of USCComment on above:Performed By: #### CDP, PFA, CP, GLYHGB #### [facility] [address] [place] [address] Baseball Pitcher: Miles Barahonagnesium [Mass/Vol]2.3 mg/dL1.6 - 2.6 mg/dL [facility], MNOtheron 77-25-2936Rooyptytaaexgt and review of laboratory resultsAbnoSumma Health [facility], [facility], [facility], [place] Interpretation and review of laboratory resultsAbnoKettering Health Greene Memorial Glucose Fingerstickon 16-98-8051Uqdyuxdvxybevy and review of laboratory results [facility], MNPO Zbubnax065 mg/aDHxbz92 - 105 mg/dLQueen Anne, KYInterpretation and review of laboratory resultsAbCleveland Clinic [facility] Botoial927 mg/yBKqep13 - 105 mg/dLMercy Health [facility], KYInterpretation and review of laboratory resultsAbnormLake Panasoffkee, KYPO Kwaepkd194 mg/dLHigh 65 - 105 mg/dLMercy Health [facility], KYPOTASSIUM (POC)on 07-35-1268RTD Potassium3.7 mmol/L3.5 - 4.5 mmol/LMbarberton citizens hospitaly [facility], KYPTon 79-98-0314UZG Coag (PPP) [Relative time]1.8 {INR}NormalAdena Fayette Medical CenterComment on above: Result Comment: Therapeutic Range: Moderate Anticoagulant Intensity: INR = 2.0-3.0 High Anticoagulant Intensity: INR = 2.5-3.5Performed By: #### CDP, PFA, CP, GLYHGB #### [employer] [address] [place] [address] Baseball Pitcher: RIGO Barahona Coag (PPP) [Time]18.4 sHigh9.0-12.0A[facility] Fayette Medical CenterComment on above:Performed By: #### CDP, PFA, CP, GLYHGB #### [employer] [address] [place] [address] Baseball Pitcher: Pramod Barahonahoyamini 51-47-1715Hpfvknqlm [Mass/Vol]2.4 mg/dLLow2.6 - 4.5 mg/dLMercy Health [facility], KYPhosphorus, Inorg.on 07-09-2019 Phosphorus, Inorg.2.4 mg/dLLow2.6-4.5A[facility] Medical CenterComment on above:Performed By: #### CDP, PFA, CP, GLYHGB #### [employer] [address] [place] [address] Baseball Pitcher: HALEY Barahonarotime-INRon 33-25-5897LZJ Coag (PPP) [Relative time]1.8 {INR}[facility], KYInterpretation and review of laboratory resultsAbnoNorthridge, KYPT Coag (PPP) [Time]18.4 [facility], KYTriglycerideson 19-27-4363Hhgpphtinfpl [Mass/Vol]95 mg/dLNormal<150A[facility]ayette Medical CenterComment on above:Result Comment: Triglyceride Guidelines: <150 Desirable 150-199 Borderline 200-499 High >499 Very high Based on AHA Guidelines for fasting triglyceride, February 2012.Performed By: #### CDP, PFA, CP, GLYHGB #### [employer] [address] [place] [address] Baseball Pitcher: Savage Jacob MDTriglyceride [Mass/Vol]95 mg/dL<150[facility], KYXR CHEST PORTABLEon 24-03-0101GL CHEST PORTABLEEXAMINATION: ONE XRAY VIEW OF THE CHEST 07/09/2019 [...] Signed by: Loki العلي MD 07/09/19 Final resultNormalMarymount Hospital, [facility], [facility], KYAMMONIAon 24-03-0197Rmxbofa (P) [Mass/Vol]40 umol/L11 - 51 umol/LMMercy Health [facility], KYArterial Blood Gas, POCon 07-08-2019 Graham TestNOT [facility], ZKBAJ762.0[facility], KYModeNOT REPORTEDMercy Health- [place], KYNegative Base Excess, ArtNOT REPORTEDMercy Health- [place], MNO2 Device/Flow/%BIPAPMercy Health- [place], [facility] YTX204.8 mmol/L21 - 28 mmol/L [facility], MNPO O2 SAT96 %94 - 98 %[facility], [facility] wRB315.5[facility] [place], [facility] pCO2 TempNOT REPORTEDmm HgMercy Health- [place], MNPOC pH7.380 [facility], MNPO pH TempNOT REPORTEDMercy Health- [place], MNPOC PO286.9[facility] [place], MNPO pO2 TempNOT REPORTEDmm HgMercy Health- [place], MNPositive Base Excess, Lre7Fgqsy Health- [place], KYPt TempNOT REPORTEDMercy Health- [place], [facility] SiteNOT REPORTEDMercy Health- [place], MNTCO2 (calc), Art27 mmol/L22 - 29 mmol/LMercy Health- [place], [facility]en TestNOT REPORTEDMercy Health- [place], KIMJJ909.0[facility]- [place], KYModeNOT REPORTEDMercy Health- [place], KYNegative Base Excess, Ieu0Citmz Health- [place], MNO2 Device/Flow/%BIPAPMercy Health- [place], [facility] LOW932.2 mmol/L21 - 28 mmol/LMercy Health- [place], [facility] O2 SAT96 %94 - 98 %[facility], [facility] pCO2 43.6[facility]- [place], [facility] pCO2 TempNOT REPORTEDmm HgMercy Health- [place], [facility] pH 7.351[facility]- [place], MNPO pH TempNOT REPORTEDMercy Health- [place], [facility] PO286.3 [facility], [facility] pO2 TempNOT REPORTEDmm HgMercy Health- [place], MNPositive Base Excess, ArtNOT REPORTEDMercy Health- [place], KYPt TempNOT REPORTEDMer[facility] Health- [place], [facility] SiteNOT REPORTEDMer[facility]- [place], MNTCO2 (calc), Art26 mmol/L22 - 29 mmol/LMercy Health- [place], [facility] METABOLIC PANELon 58-02-9344Wopnm gap [Moles/Vol]16 mmol/L9 - 17 mmol/LMercy Health- [place], KYBun/Cre RatioNOT REPORTED [facility], KYCalcium [Mass/Vol]8.5 mg/dLLow8.6 - 10.4 mg/dLMercy Health- [place], KYChloride [Moles/Vol]107 mmol/L98 - 107 mmol/LMercy Health- [place], KYCO2 [Moles/Vol]22 mmol/L20 - 31 mmol/LMercy Health- [place], KYCreatinine [Mass/Vol]1.48 mg/dLHigh0.5 - 0.9 mg/dLMercy Health- [place], KYGFR Znswfeuw70 mL/minLow>60 [facility], KYGFR CommentMercy Health- [place], KYGFR Non- Txzaedqk51 mL/minLow>60[facility] [place], KYGFR StagingNOT REPORTEDMercy Health- [place], [place] Glucose [Mass/Vol]195 mg/qEEsum91 - 99 mg/dLMercy Health- [place], KYInterpretation and review of laboratory resultsAbnormalMercy Health- [place], KYPotassium [Moles/Vol]3.6 mmol/LLow3.7 - 5.3 mmol/LMer[facility]- [place], KYSodium [Moles/Vol] 145 mmol/ZGato284 - 144 mmol/LMercy Health- [place], KYUrea nitrogen [Mass/Vol]48 mg/dLHigh8 - 23 mg/dLMercy Health- [place], KYBasic Metabolic Panelon 41-79-7789Aqeqp gap [Moles/Vol]15 mmol/L9 - 17 mmol/LMercy Health- [place], KYBun/Cre RatioNOT REPORTEDMercy Health- [place], KYCalcium [Mass/Vol]8.4 mg/dLLow8.6 - 10.4 mg/dLMercy Health- [place], KYChloride [Moles/Vol]104 mmol/L98 - 107 mmol/LMercy Health- [place], [place] CO2 [Moles/Vol]22 mmol/L20 - 31 mmol/LMercy [facility]- [place], KYCreatinine [Mass/Vol] 1.62 mg/dLHigh0.5 - 0.9 mg/dLMercy Health- [place], KYGFR Fqrwrprg76 mL/min Low>60[facility] [place], KYGFR CommentMercy Health- [place], KYGFR Non- Uetpdxme21 mL/minLow>60[facility], KYGFR StagingNOT REPORTEDMercy Health [facility], KYGlucose [Mass/Vol]185 mg/mJPbou80 - 99 mg/dLMercy Health [facility], [place] Interpretation and review of laboratory resultsAbnormalMercy Health [facility], [place] Potassium [Moles/Vol]4.1 mmol/L3.7 - 5.3 mmol/LMMercy Health [facility], KYSodium [Moles/Vol]141 mmol/L135 - 144 mmol/LMMercy Health [facility], KYUrea nitrogen [Mass/Vol]52 mg/dLHigh8 - 23 mg/dLMercy Health [facility], KYBasic Metabolic Profon 07-08-2019(cont.)[facility] HospitalComment on above:Result Comment: Average GFR for 70 or more years old: 75 mL/min/1.73sq m Chronic Kidney Disease: <60 mL/min/1.73sq m Kidney failure: <15 mL/min/1.73sq m eGFR calculated using average adult body mass. Additional eGFR calculator available at: http://www.[employer]/multiple_crcl_2012.htmPerformed By: #### CDP, PFA, CP, GLYHGB #### [employer] [address] [place] [address] Baseball Pitcher: Savage Jacob MDAnion gap [Moles/Vol]16 mmol/LNormal9-17A[facility] Medical CenterComment on above:Performed By: #### CDP, PFA, CP, GLYHGB #### [employer] [address] [place] [address] Baseball Pitcher: CASEY Barahonaalcium [Mass/Vol]8.5 mg/dLLow8.6-10.4A[facility] Medical CenterComment on above:Performed By: #### CDP, PFA, CP, GLYHGB #### [employer] [facility] [place], [place] [id number] Baseball Pitcher: Savage Madoff, MDChloride [Moles/Vol]107 mmol/BZkjmny76-615CembeAdena Fayette Medical CenterComment on above:Performed By: #### CDP, PFA, CP, GLYHGB #### [address] [address] Baseball Pitcher: Savage Jacob MDCO2 [Moles/Vol]22 mmol/EXmqobs61-20PoerfAdena Fayette Medical CenterComment on above:Performed By: #### CDP, PFA, CP, GLYHGB #### [place] [address] Baseball Pitcher: CASEY Barahonareatinine [Mass/Vol]1.48 mg/dLHigh0.50-0.90 [facility] CenterComment on above:Performed By: #### CDP, PFA, CP, GLYHGB #### [place] [address] Baseball Pitcher: Savage Jacob MDGFR, Amer42 mL/minLow>60[facility] Medical CenterComment on above:Performed By: #### CDP, PFA, CP, GLYHGB #### [address] [address] Baseball Pitcher: Savage Jacob MDGFR,non Amer35 mL/minLow>60[facility] CenterComment on above:Performed By: #### CDP, PFA, CP, GLYHGB #### [facility] [address] [place] [address] Baseball Pitcher: Savage Jacob MDGlucose [Mass/Vol]195 mg/oKDwbg88-56SrelcKeck Hospital of USCComment on above:Performed By: #### CDP, PFA, CP, GLYHGB #### [facility] [address] [place] [address] Baseball Pitcher: HALEY Barahonaotassium [Moles/Vol]3.6 mmol/LLow3.7-5.3[facility] Hospital Of San BernardinoComment on above:Performed By: #### CDP, PFA, CP, GLYHGB #### [facility] [address] [place] [address] Baseball Pitcher: ZANA Barahonaodium [Moles/Vol]145 mmol/WEitr616-635GhbviAdena Fayette Medical CenterComment on above:Performed By: #### CDP, PFA, CP, GLYHGB #### [facility] [address] [place] [address] Baseball Pitcher: Savage Jacob MDUrea nitrogen [Mass/Vol]48 mg/dLHigh8-23[facility] Medical CenterComment on above:Performed By: #### CDP, PFA, CP, GLYHGB #### [address] [address] Baseball Pitcher: Savage Jacob MDBUCoco/CRE CyrusOT REPORTEDNormal9-20[facility] Medical CenterComment on above:Performed By: #### CDP, PFA, CP, GLYHGB #### [address] [address] Baseball Pitcher: ZANA Barahonataging:NOT REPORTEDNormalAdena Fayette Medical CenterComment on above:Performed By: #### CDP, PFA, CP, GLYHGB #### [address] [address] Baseball Pitcher: Savage Jacob MD(cont.)[facility] Comment on above:Result Comment: Average GFR for 70 or more years old: 75 mL/min/1.73sq m Chronic Kidney Disease: <60 mL/min/1.73sq m Kidney failure: <15 mL/min/1.73sq m eGFR calculated using average adult body mass. Additional eGFR calculator available at: http://www.[employer].com/multiple_crcl_2012.htmPerformed By: #### CDP, PFA, CP, GLYHGB #### [employer] [facility] [place] [address] Baseball Pitcher: Savage Jacob MDAnion gap [Moles/Vol]15 mmol/LNormal9-17[facility] CenterComment on above:Performed By: #### CDP, PFA, CP, GLYHGB #### [facility] [address] [place] [address] Baseball Pitcher: Savage Jacob MDCalcium [Mass/Vol]8.4 mg/dLLow8.6-10.4[facility] Medical CenterComment on above:Performed By: #### CDP, PFA, CP, GLYHGB #### [facility] [address] [place] [address] Baseball Pitcher: Savage Jacob MDChloride [Moles/Vol]104 mmol/WKlbzui02-492XyhjjAdena Fayette Medical CenterComment on above:Performed By: #### CDP, PFA, CP, GLYHGB #### [facility] [address] [place] [address] Baseball Pitcher: Savage Jacob MDCO2 [Moles/Vol]22 mmol/TWjjpnb36-48MvkhzAdena Fayette Medical CenterComment on above:Performed By: #### CDP, PFA, CP, GLYHGB #### [facility] [address] [place] [address] Baseball Pitcher: Savage Jacob MDCreatinine [Mass/Vol]1.62 mg/dLHigh0.50-0.90 [facility] CenterComment on above:Performed By: #### CDP, PFA, CP, GLYHGB #### [facility] [address] [place] [address] Baseball Pitcher: SALLY Barahona, Amer38 mL/minLow>60[facility] CenterComment on above:Performed By: #### CDP, PFA, CP, GLYHGB #### [employer] [address] [place] [address] Baseball Pitcher: Savage Jacob MDGFR,non Amer31 mL/minLow>60[facility] CenterComment on above:Performed By: #### CDP, PFA, CP, GLYHGB #### [facility] [address] [place] [address] Baseball Pitcher: Savage Jacob MDGlucose [Mass/Vol]185 mg/xJHhrr24-51QqqjdKeck Hospital of USCComment on above:Performed By: #### CDP, PFA, CP, GLYHGB #### [address] [address] Baseball Pitcher: HALEY Barahonaotassium [Moles/Vol]4.1 mmol/LNormal3.7-5.3 [facility] CenterComment on above:Performed By: #### CDP, PFA, CP, GLYHGB #### [address] [address] Baseball Pitcher: ZANA Barahonaodium [Moles/Vol]141 mmol/JXvasge622-059TvyfcAdena Fayette Medical CenterComment on above:Performed By: #### CDP, PFA, CP, GLYHGB #### [address] [address] Baseball Pitcher: Savage Jacob MDUrea nitrogen [Mass/Vol]52 mg/dLHigh8-23[facility] CenterComment on above:Performed By: #### CDP, PFA, CP, GLYHGB #### [address] [address] Baseball Pitcher: FELICITY Barahona/SHALINI Ziegler REPORTEDNormal9-20[facility] CenterComment on above:Performed By: #### CDP, PFA, CP, GLYHGB #### [facility] [address] [place] [address] Baseball Pitcher: ZANA Barahonataging:NOT REPORTEDNormalAdena Fayette Medical CenterComment on above:Performed By: #### CDP, PFA, CP, GLYHGB #### [facility] [address] [place] [address] Baseball Pitcher: CASEY Barahonastarla 68-63-2744Ajrkjuevice distribution width (RBC) [Ratio]15.5 %High11.8-14.4[facility] Medical CenterComment on above:Performed By: #### CDP, PFA, CP, GLYHGB #### [place] [address] Baseball Pitcher: Savage Jacob MDHematocrit (Bld) [Volume fraction]27.0 %Low 36.3-47.1MKeck Hospital of USCComment on above:Performed By: #### CDP, PFA, CP, GLYHGB #### [facility] [address] [place] [address] Baseball Pitcher: Savage Jacob MDHemoglobin (Bld) [Mass/Vol]8.4 g/dLLow11.9-15.1 [facility] CenterComment on above:Performed By: #### CDP, PFA, CP, GLYHGB #### [place] [address] Baseball Pitcher: ALISSA BarahonaCH (RBC) [Entitic mass]28.4 ptYksuql93.2-33.5 [facility] CenterComment on above:Performed By: #### CDP, PFA, CP, GLYHGB #### [facility] [address] [place] [address] Baseball Pitcher: AILSSA BarahonaCHC (RBC) [Mass/Vol]31.1 g/cCQzxqkw61.4-34.8 [facility] CenterComment on above:Performed By: #### CDP, PFA, CP, GLYHGB #### [facility] [address] [place] [address] Baseball Pitcher: DIANA Barahona (RBC) [Entitic vol]91.2 bVXoeboh50.6-102.9 [facility] CenterComment on above:Performed By: #### CDP, PFA, CP, GLYHGB #### [address] [address] Baseball Pitcher: ILANA Barahona Automated0.5 per 100 WBCHigh0.0A[facility] Medical CenterComment on above:Performed By: #### CDP, PFA, CP, GLYHGB #### [address] [address] Baseball Pitcher: Taylor Barahonatemartine mean volume (Bld) [Entitic vol]9.7 fL Normal8.1-13.5[facility] Medical CenterComment on above:Performed By: #### CDP, PFA, CP, GLYHGB #### [address] [address] Baseball Pitcher: Taylor Barahonatejimbo (Bld) [#/Vol]151 10*3/yXYihsfo076-965 [facility] CenterComment on above:Performed By: #### CDP, PFA, CP, GLYHGB #### [address] [address] Baseball Pitcher: ISABELLE BarahonaBC (Bld) [#/Vol]2.96 10*6/uLLow3.95-5.11[facility] CenterComment on above:Performed By: #### CDP, PFA, CP, GLYHGB #### [facility] [address] [place] [address] Baseball Pitcher: PETR Barahona (Bld) [#/Vol]11.1 10*3/uLNormal3.5-11.3[facility] Of San BernardinoComment on above:Performed By: #### CDP, PFA, CP, GLYHGB #### [facility] [address] [place] [address] Baseball Pitcher: Savage Jacob MDErythrocyte distribution width (RBC) [Ratio]15.5 %High11.8 - 14.4 %[facility], MNHematocrit (Bld) [Volume fraction]27.0 % Low36.3 - 47.1 %[facility], MNHemoglobin (Bld) [Mass/Vol]8.4 g/dLLow11.9 - 15.1 g/dLMercy Health [facility], MNInterpretation and review of laboratory results AbnormalMercy Health [facility], MNMCH (RBC) [Entitic mass]28.4 pg25.2 - 33.5 pgMercy Health Kings [facility] Hospital, MNMCHC (RBC) [Mass/Vol]31.1 g/dL28.4 - 34.8 g/dLMercy Health [facility], [place] MCV (RBC) [Entitic vol]91.2 fL82.6 - 102.9 fLQueen Anne, KYPlatelet mean volume (Bld) [Entitic vol]9.7 fL8.1 - 13.5 fLMercy Health [facility], MNPlatelets (Bld) [#/Vol]151 10*3/[facility], MNRBC (Bld) [#/Vol]2.96 10*6/uLLow3.95 - 5.11 m/[facility], MNWBC (Bld) [#/Vol]0.5 10*3/uLHigh0.0 per 100 WBC [place], KYWBC (Bld) [#/Vol]11.1 10*3/[facility], MNCT HEAD WO CONTRASTon 05-51-5250YH HEAD WO CONTRASTEXAMINATION: CT OF THE HEAD WITHOUT CONTRAST 07/08/2019 [...] Signed by: Jesús Clemons MD 07/08/19 Final resultNormalMarymount Hospital, [facility], [facility], KYHEPATIC FUNCTION PANELon 45-80-4995Zxjzycv [Mass/Vol]3.3 g/dLLow3.5 - 5.2 g/dLMercy Health [facility], MNAlbumin/Globulin [Mass ratio]1.5 {ratio}[facility], KYALP [Catalytic activity/Vol]57 U/L35 - 104 U/LMMercy Health [facility], KYALT [Catalytic activity/Vol]17 U/L5 - 33 U/[facility], KYAST [Catalytic activity/Vol]31 U/L<32[facility], MNBilirubin Ql (U) 0.38 mg/dL0.3 - 1.2 mg/dLMercy Health [facility], MNBilirubin, Indirect0.25 mg/dL0 - 1 mg/dLMercy Health [facility], KYBilirubin.direct [Mass/Vol]0.13 mg/dL<0.31[facility], KYGlobulinNOT REPORTED1.5 - 3.8 g/dLMercy Health [facility], MNInterpretation and review of laboratory resultsAbnormHolzer Hospital, KYProtein [Mass/Vol]5.5 g/dLLow6.4 - 8.3 g/dLMercy Health [facility], KYMagnesiumon 57-91-2846Mmncqxdaz [Mass/Vol]2.3 mg/dLNormal1.6-2.6[facility] Of San BernardinoComment on above:Performed By: #### CDP, PFA, CP, GLYHGB #### [employer] [address] [place] [address] Baseball Pitcher: Miles Barahonagnesium [Mass/Vol]2.3 mg/dL1.6 - 2.6 mg/dL [facility], [facility] Glucose Fingerstickon 30-19-8874Cwifdphvdoqjmk and review of laboratory resultsAbWilson Memorial Hospital, MNPO Krhcmfk028 mg/dLHigh 65 - 105 mg/dLMercy Health [facility], KYInterpretation and review of laboratory resultsAbWilson Memorial Hospital, [facility] Qepgoip648 mg/sXUgjv58 - 105 mg/dLMercy Health [facility], KYInterpretation and review of laboratory resultsAbWilson Memorial Hospital, [facility] Luttiam129 mg/aPUcsv26 - 105 mg/dLMercy Health [facility], [place] Interpretation and review of laboratory resultsAbnoSumma Health [facility], MNPOC Ciqrxiy659 mg/wGLqoi33 - 105 mg/dLMercy Health [facility], MNPOCT Glucoseon 07-08-2019 Interpretation and review of laboratory resultsAbWilson Memorial Hospital, [facility] Llpcedx220 mg/zNUwgt28 - 100 mg/dLMercy Health [facility], KYPOTASSIUM (POC)on 80-87-3502WEH Potassium3.5 mmol/L3.5 - 4.5 mmol/LMMercy Health [facility], KYPTon 69-20-3891UCW Coag (PPP) [Relative time]1.7 {INR}NormalAdena Fayette Medical CenterComment on above:Result Comment: Therapeutic Range: Moderate Anticoagulant Intensity: INR = 2.0-3.0 High Anticoagulant Intensity: INR = 2.5-3.5Performed By: #### CDP, PFA, CP, GLYHGB #### [employer] [address] [place] [address] Baseball Pitcher: RIGO Barahona Coag (PPP) [Time]16.8 sHigh9.0-12.0A[facility] Medical CenterComment on above:Performed By: #### CDP, PFA, CP, GLYHGB #### [employer] [address] [place] [address] Baseball Pitcher: Ric Barahonaime-INRon 64-48-4027JMM Coag (PPP) [Relative time]1.7 {INR}[facility], KYInterpretation and review of laboratory resultsAbWilson Memorial Hospital, KYPT Coag (PPP) [Time]16.8 [facility], KYXR ABDOMEN FOR NG/OG/NE TUBE PLACEMENTon 63-90-4287JV ABDOMEN FOR NG/OG/NE TUBE PLACEMENTEXAMINATION: ONE SUPINE XRAY VIEW(S) OF THE ABDOMEN 07/08/2019 10:24 am COMPARISON: None HISTORY: ORDERING SYSTEM PROVIDED HISTORY: tube placement TECHNOLOGIST PROVIDED HISTORY: tube placement Portable?->Yes FINDINGS: Enteric tube placement with the tip within the stomach. Small right lung base opacity. IMPRESSION: Enteric tube with the tip within the stomach. Interpreted by: Jesús Clemons MD Signed by: Jesús Clemons MD 07/08/19 Final resultNoUniversity Hospitals Conneaut [facility], [facility], [facility], KYXR CHEST PORTABLEon [id number] CHEST PORTABLEEXAMINATION: ONE XRAY VIEW OF THE CHEST 07/08/2019 [...] Signed by: Loki العلي MD 07/08/19 Final resultNormUniversity Hospitals TriPoint Medical CenterMer Health- [place], KYMercy [facility]- [place], KYMercy [facility]- [place], KYAnion Gap (Calc) POCon 38-71-3450Awecs gap [Moles/Vol]10 mmol/L7 - 16 mmol/LMercy Health- [place], KYArterial Blood Gas, POCon 54-19-9318Aeaym TestNOT REPORTEDMer Health- [place], NXUBJ391.0[facility]- [place], [place] ModeNIVMercy Health- [place], KYNegative Base Excess, Fdz8Ziovc Health- [place], KYO2 Device/Flow/%NOT REPORTEDWay[facility]- [place], MNPO WHP490.6 mmol/L21 - 28 mmol/L [facility]- [place], MNPOC O2 SAT98 %94 - 98 %[facility]- [place], MNPO lQX056.1Mbarberton [facility] hospitaly [facility]- [place], [facility] pCO2 TempNOT REPORTEDmm HgWayne Hospital Health- [place], MNPOC pH7.318Low [facility]- [place], MNPO pH TempNOT REPORTEDWay[facility] Hospital [facility]- [place], MNPOC [id number] [facility]- [place], [facility] pO2 TempNOT REPORTEDmm HgWayne Hospital Health- [place], KYPositive Base Excess, ArtNOT REPORTEDMer Health- [place], KYPt TempNOT REPORTEDMer Health- [place], KYSample SiteArterial LineMer Health- [place], KYTCO2 (calc), Art25 mmol/L22 - 29 mmol/LMbarberton citizens hospitaly Health- [place], KYAllen TestNOT REPORTEDWayne Hospital [facility]- [place], EMSBD838.0 [facility]- [place], MNInterpretation and review of laboratory resultsAbnormalWayne Hospital Health- [place], KYModeCPAP/PSMercy Health- [place], KYNegative Base Excess, Hlt0Mzevt Health- [place], KYO2 Device/Flow/%Adult VentilatorMer Health- [place], MNPOC HHB899.1 mmol/L21 - 28 mmol/LMbarberton citizens hospitaly [facility]- [place], MNPOC O2 SAT96 %94 - 98 %[facility]- [place], KYPOC rNC960.2[facility]- [place], [facility] pCO2 TempNOT REPORTEDmm HgMercy Health- [place], [facility] pH7.335LowMercy Health- [place], MNPO pH TempNOT REPORTEDMercy Health- [place], [facility] PO287.5[facility]- [place], [facility] pO2 TempNOT REPORTEDmm HgMercy Health- [place], MNPositive Base Excess, ArtNOT REPORTEDMercy Health- [place], KYPt TempNOT REPORTED [facility]- [place], MNSale SiteArterial LineMercy Health- [place], MNTCO2 (calc), Art 26 mmol/L22 - 29 mmol/LMercy Health- [place], MNAllen TestNOT REPORTEDMercy Health- [place], DKIJP540.0[facility]- [place], MNModeSIMV(PRVC)+ PSMercy Health- [place], KYNegative Base Excess, Bln2KcnaPozws Health- [place], MNO2 Device/Flow/%Adult VentilatorMer Health- [place], [facility] LFO413.8 mmol/L21 - 28 mmol/LMercy Health- [place], [facility] O2 SAT96 %94 - 98 %[facility] [place], [facility] jTM693.4Mer [facility]- [place], [facility] pCO2 TempNOT REPORTEDmm HgMercy Health- [place], [facility] pH7.351[facility]- [place], [facility] pH TempNOT REPORTEDMer Health- [place], [facility] PO286.1[facility]- [place], [facility] pO2 TempNOT REPORTEDmm HgMer Health- [place], MNPositive Base Excess, ArtNOT REPORTEDMercy Health- [place], KYPt TempNOT REPORTEDMercy Health- [place], [facility] Delanole SiteArterial Line [facility] [place], MNTCO2 (calc), Art23 mmol/L22 - 29 mmol/LMercy Health- [place], [place] Graham TestNOT APPLICABLEMer Health- [place], WIMIL2DIT REPORTEDMer Health- [place], [place] Interpretation and review of laboratory resultsAbnormalWayne Hospital Health- [place], MNMode NOT REPORTEDMer Health- [place], KYNegative Base Excess, Zwt0M[facility]z [facility]- [place], MNO2 Device/Flow/%Adult VentilatorWayne Hospital Health- [place], [facility] KTO796.7 mmol/L21 - 28 mmol/LMercy Health- [place], MNPO O2 SAT98 %94 - 98 %[facility]- [place], MNPO pCO2 39.0Mer [facility]- [place], [facility] pCO2 TempNOT REPORTEDmm HgMercy Health- [place], MNPOC pH 7.372[facility]- [place], MNPOC pH TempNOT REPORTEDMer Health- [place], MNPOC ZA2013.8 HighMer Health- [place], MNPO pO2 TempNOT REPORTEDmm HgMer Health- [place], [place] Positive Base Excess, ArtNOT REPORTEDMer Health- [place], KYPt TempNOT REPORTED [facility]- [place], MNSample SiteArterial LineMer Health- [place], MNTCO2 (calc), Art 24 mmol/L22 - 29 mmol/LMercy [facility]- [place], MNAllen TestNOT APPLICABLEMer Health- [place], [id number] REPORTEDWay[facility]- [place], MNModeNOT REPORTEDWay[facility]- [place], [place] Negative Base Excess, Qnn5OjhfEeijh Health- [place], MNO2 Device/Flow/%Adult VentilatorMer Health- [place], MNPOC TQI673.1 mmol/L21 - 28 mmol/LMohiohealth grady memorial [facility] Health- [place], MNPO O2 SAT95 %94 - 98 %[facility]- [place], [facility] sLB683.8[facility]- [place], [place] POC pCO2 TempNOT REPORTEDmm HgWayne Hospital Health- [place], [facility] pH7.352Mer [facility]- [place], [facility] pH TempNOT REPORTEDWay[facility] Hospital [facility]- [place], [facility] PO280.9LowMer Health- [place], [place] POC pO2 TempNOT REPORTEDmm HgMer Health- [place], MNPositive Base Excess, ArtNOT REPORTEDMer Health- [place], KYPt TempNOT REPORTEDMer Health- [place], MNSample Site Arterial LineMer Health- [place], MNTCO2 (calc), Art23 mmol/L22 - 29 mmol/LMercy Health- [place], MNBasic Metab w/rfx MGon 07-07-2019(cont.)[facility] Municipal HospitalComment on above:Result Comment: Average GFR for 70 or more years old: 75 mL/min/1.73sq m Chronic Kidney Disease: <60 mL/min/1.73sq m Kidney failure: <15 mL/min/1.73sq m eGFR calculated using average adult body mass. Additional eGFR calculator available at: http://www.[employer]vantage/multiple_crcl_2012.htmPerformed By: #### CDP, PFA, CP, GLYHGB #### [address] [address] Baseball Pitcher: Savage Jacob MDAnion gap [Moles/Vol]15 mmol/LNormal9-17A[facility] Fayette Medical CenterComment on above:Performed By: #### CDP, PFA, CP, GLYHGB #### [address] [address] Baseball Pitcher: Savage Jacob MDCalcium [Mass/Vol]8.4 mg/dLLow8.6-10.4A[facility] Fayette Medical CenterComment on above:Performed By: #### CDP, PFA, CP, GLYHGB #### [address] [address] Baseball Pitcher: Savage Jacob MDChloride [Moles/Vol]105 mmol/HPdvepb31-741YkrwyAdena Fayette Medical CenterComment on above:Performed By: #### CDP, PFA, CP, GLYHGB #### [facility] [address] [place] [address] Baseball Pitcher: Savage Jacob MDCO2 [Moles/Vol]21 mmol/HQzrtvk23-70SuqpdAdena Fayette Medical CenterComment on above:Performed By: #### CDP, PFA, CP, GLYHGB #### [facility] [address] [place] [address] Baseball Pitcher: Savage Jacob MDCreatinine [Mass/Vol]1.76 mg/dLHigh0.50-0.90 [facility] Medical CenterComment on above:Performed By: #### CDP, PFA, CP, GLYHGB #### [facility] [address] [place] [address] Baseball Pitcher: Savage Jacob MDGFR, Amer35 mL/minLow>60[facility] Medical CenterComment on above:Performed By: #### CDP, PFA, CP, GLYHGB #### [facility] [address] [place] [address] Baseball Pitcher: Savage Jacob MDGFR,non Amer29 mL/minLow>60[facility] Medical CenterComment on above:Performed By: #### CDP, PFA, CP, GLYHGB #### [facility] [address] [place] [address] Baseball Pitcher: Savage Jacob MDGlucose [Mass/Vol]182 mg/bSMfkf23-44JagdhKeck Hospital of USCComment on above:Performed By: #### CDP, PFA, CP, GLYHGB #### [facility] [address] [place] [address] Baseball Pitcher: HALEY Barahonaotassium [Moles/Vol]4.4 mmol/LNormal3.7-5.3 [facility] Medical CenterComment on above:Performed By: #### CDP, PFA, CP, GLYHGB #### [facility] [address] [place] [address] Baseball Pitcher: ZANA Barahonaodium [Moles/Vol]141 mmol/EOvetaf268-935GcyyuAdena Fayette Medical CenterComment on above:Performed By: #### CDP, PFA, CP, GLYHGB #### [facility] [address] [place] [address] Baseball Pitcher: Savage Jacob MDUrea nitrogen [Mass/Vol]54 mg/dLHigh8-23A[facility] Medical CenterComment on above:Performed By: #### CDP, PFA, CP, GLYHGB #### [facility] [address] [place] [address] Baseball Pitcher: FELICITY Barahona/CRE RatioNOT REPORTEDNormal9-20MerProvidence Tarzana Medical CenterComment on above:Performed By: #### CDP, PFA, CP, GLYHGB #### [facility] [address] [place], [place] [id number] Baseball Pitcher: ZANA Barahonataging:NOT REPORTEDNormalAdena Fayette Medical CenterComment on above:Performed By: #### CDP, PFA, CP, GLYHGB #### [facility] [address] [place], [place] [phone] Baseball Pitcher: Chriss Barahonauofl health - [facility] Metabolic Panelon 85-60-0065Fmdpi gap [Moles/Vol]15 mmol/L9 - 17 mmol/LMercy Health- [place], KYBun/Cre RatioNOT REPORTED [facility]- [place], KYCalcium [Mass/Vol]8.1 mg/dLLow8.6 - 10.4 mg/dLMercy Health- [place], KYChloride [Moles/Vol]104 mmol/L98 - 107 mmol/LMercy [facility]- [place], KYCO2 [Moles/Vol]19 mmol/LLow20 - 31 mmol/LMer[facility]- [place], KYCreatinine [Mass/Vol] 1.67 mg/dLHigh0.5 - 0.9 mg/dLMercy Health- [place], KYGFR Yllfjhuo91 mL/min Low>60[facility]- [place], KYGFR CommentMercy Health- [place], KYGFR Non- Ignhlhxb35 mL/minLow>60[facility]- [place], KYGFR StagingNOT REPORTEDMercy Health- [place], KYGlucose [Mass/Vol]139 mg/aAFdsd57 - 99 mg/dLMercy Health- [place], [place] Interpretation and review of laboratory resultsAbnormalMercy Health- [place], [place] Potassium [Moles/Vol]3.6 mmol/LLow3.7 - 5.3 mmol/LMer[facility]- [place], KYSodium [Moles/Vol]138 mmol/L135 - 144 mmol/LMer[facility]- [place], KYUrea nitrogen [Mass/Vol]55 mg/dLHigh8 - 23 mg/dLMercy Health- [place], KYBasic Metabolic Panel w/ Reflex to MGon 45-30-5230Igqtb gap [Moles/Vol]15 mmol/L9 - 17 mmol/LMbarberton citizens hospitaly [facility]- [place], KYBun/Cre RatioNOT REPORTEDMercy Health [facility], KYCalcium [Mass/Vol]8.4 mg/dLLow8.6 - 10.4 mg/dLMercy Health [facility], KYChloride [Moles/Vol]105 mmol/L98 - 107 mmol/LMDoctors [facility] [place], KYCO2 [Moles/Vol]21 mmol/L20 - 31 mmol/LMDoctors Hospital [place], KYCreatinine [Mass/Vol]1.76 mg/dLHigh0.5 - 0.9 mg/dLMercy Health [facility], KYGFR Oveybpkd13 mL/minLow>60[facility], KYGFR CommentMercy Health [facility], KYGFR Non- Metrklma33 mL/minLow>60[facility], KYGFR StagingNOT REPORTEDMercy Health [facility], KYGlucose [Mass/Vol]182 mg/fZIzun17 - 99 mg/dLMercy Health [facility], KYInterpretation and review of laboratory resultsAbnormal [facility], KYPotassium [Moles/Vol]4.4 mmol/L3.7 - 5.3 mmol/LMDoctors Hospital [place], KYSodium [Moles/Vol]141 mmol/L135 - 144 mmol/LMDoctors Hospital [place], KYUrea nitrogen [Mass/Vol]54 mg/dLHigh8 - 23 mg/dLMercy Health [facility], KYGaylord Hospital Metabolic Profon 07-07-2019(cont.)[facility] Municipal HospitalComment on above: Result Comment: Average GFR for 70 or more years old: 75 mL/min/1.73sq m Chronic Kidney Disease: <60 mL/min/1.73sq m Kidney failure: <15 mL/min/1.73sq m eGFR calculated using average adult body mass. Additional eGFR calculator available at: http://www.[employer].com/multiple_crcl_2012.htmPerformed By: #### TYS #### [facility] HospitalNearbu[facility] [address] [place] [address] Baseball Pitcher: Savage Jacob MDAnion gap [Moles/Vol]15 mmol/LNormal9-17A[facility] Medical CenterComment on above:Performed By: #### TYS #### [address] [address] Baseball Pitcher: Savage Jacob MDCalcium [Mass/Vol]8.1 mg/dLLow8.6-10.4A[facility] Medical CenterComment on above:Performed By: #### TYS #### [address] [address] Baseball Pitcher: Savage Jacob MDChloride [Moles/Vol]104 mmol/HRzdkhu48-172AxsyjAdena Fayette Medical CenterComment on above:Performed By: #### TYS #### [address] [address] Baseball Pitcher: Savage Jacob MDCO2 [Moles/Vol]19 mmol/NCfs66-99EvileAdena Fayette Medical CenterComment on above:Performed By: #### TYS #### [address] [address] Baseball Pitcher: Savage Jacob MDCreatinine [Mass/Vol]1.67 mg/dLHigh0.50-0.90 [facility] CenterComment on above:Performed By: #### TYS #### [address] [address] Baseball Pitcher: SALLY Barahona, Amer37 mL/minLow>60[facility] Medical CenterComment on above:Performed By: #### TYS #### [address] [address] Baseball Pitcher: SALLY Barahona,non Amer30 mL/minLow>60[facility] Medical CenterComment on above:Performed By: #### TYS #### [address] [address] Baseball Pitcher: Savage Jacob MDGlucose [Mass/Vol]139 mg/nISlne87-85RyjocKeck Hospital of USCComment on above:Performed By: #### TYS #### [address] [address] Baseball Pitcher: Savage Jacob MDPotassium [Moles/Vol]3.6 mmol/LLow3.7-5.3[facility] Hospital Of San BernardinoComment on above:Performed By: #### TYS #### [address] [address] Baseball Pitcher: ZANA Barahonaodium [Moles/Vol]138 mmol/IJtelnq268-893AlyzaAdena Fayette Medical CenterComment on above:Performed By: #### TYS #### [address] [address] Baseball Pitcher: Savage Jacob MDUrea nitrogen [Mass/Vol]55 mg/dLHigh8-23A[facility] Medical CenterComment on above:Performed By: #### TYS #### [address] [address] Baseball Pitcher: Savage Jacob MDBUN/CRE RatioNOT REPORTEDNormal9-20[facility] Medical CenterComment on above:Performed By: #### TYS #### [address] [address] Baseball Pitcher: ZANA Barahonataging:NOT REPORTEDNormalAdena Fayette Medical CenterComment on above:Performed By: #### TYS #### [address] [address] Baseball Pitcher: CASEY BarahonaALCIUM, IONIC (POC)on 03-56-8249QAX Ionized Calcium1.11 mmol/LLow1.15 - 1.33 mmol/LMercy Health- [place], KYPOC Ionized Calcium 1.14 mmol/LLow1.15 - 1.33 mmol/[facility], KYCBCon 64-44-0320UVZH Automated1.0 per 100 WBCHigh0.0Adena Fayette Medical CenterComment on above: Performed By: #### TYS #### [facility] [address] [place] [address] Baseball Pitcher: Savage Jacob MDErythrocyte distribution width (RBC) [Ratio]15.7 %High11.8-14.4[facility], KYComment on above:Performed By: #### TYS #### [facility] [address] [place] [address] Baseball Pitcher: Savage Jacob MDHematocrit (Bld) [Volume fraction]27.7 %Low 36.3-47.1MMercy Health [facility], KYComment on above:Performed By: #### TYS #### [facility] [address] [place] [address] Baseball Pitcher: Savage Jacob MDHemoglobin (Bld) [Mass/Vol]8.9 g/dLLow11.9-15.1 [facility], KYComment on above:Performed By: #### TYS #### [facility] [address] [place] [address] Baseball Pitcher: ALISSA BarahonaCH (RBC) [Entitic mass]28.8 fqRynzyp48.2-33.5 [facility], KYComment on above:Performed By: #### TYS #### [facility] [address] [place] [address] Baseball Pitcher: JAIME BarahonaC (RBC) [Mass/Vol]32.1 g/fCBrhmja47.4-34.8 [facility], KYComment on above:Performed By: #### TYS #### [address] [address] Baseball Pitcher: ALISSA BarahonaCV (RBC) [Entitic vol]89.6 lVBxnqeo14.6-102.9 [facility] on above:Performed By: #### TYS #### [address] [address] Baseball Pitcher: Taylor Barahonatelet mean volume (Bld) [Entitic vol]10.4 fL Normal8.1-13.5[facility] on above:Performed By: #### TYS #### [address] [address] Baseball Pitcher: HALEY Barahonalatelets (Bld) [#/Vol]135 10*3/tZYqi554-885 [facility] on above:Performed By: #### TYS #### [address] [address] Baseball Pitcher: Savage Jacob MDRBC (Bld) [#/Vol]3.09 10*6/uLLow3.95-5.11[facility] on above:Performed By: #### TYS #### [address] [address] Baseball Pitcher: Savage Jacob MDWBC (Bld) [#/Vol]15.2 10*3/uLHigh3.5-11.3MSelect Specialty Hospital-Des Moines on above:Performed By: #### TYS #### [facility] [address] [place] [address] Baseball Pitcher: Savage Jacob MDInterpretation and review of laboratory results AbnormalQueen Anne, KYWBC (Bld) [#/Vol]1.0 10*3/uLHigh0.0 per 100 WBCQueen Anne, KYCHLORIDE (POC)on 44-25-5663VXJ Gpcliayl427 mmol/LHigh98 - 107 mmol/LMercy [facility]- [place], KYCreatinine W/GFR Point of Careon 48-47-9246OPS Comment 41 mL/minLow>60[facility]- [place], KYGFR CommentMercy Health- [place], KYGFR Non- Ebusyact49 mL/minLow>60[facility]- [place], KYPOC Creatinine1.53 mg/dLHigh 0.51 - 1.19 mg/dLMercy Health- [place], KYEKG 12 Leadon 55-27-0175Cjtmbk Ziaq056AUP [facility]- [place], KYQ-T Duxefxki473 msMercy Health- [place], KYQRS Saijacqo67 msMercy Health- [place], KYQTc Calculation ()408 msMercy Health- [place], KYR Cnjs13kucagix [facility]- [place], KYT [place]-126degreesMercy Health- [place], KYVentricular Xrmo759IEF [facility]- [place], KYMercy Health- [place], KYMercy Health- [place], KYAtrial Egdq19JYN [facility]- [place], KYP Dyfp70lgldbafIhckj Health- [place], KYP-R Bmbzbewu454 msMercy Health- [place], KYQ-T Srjfybrf014 msMercy Health- [place], KYQRS Ecxplbnr705 msMercy [facility]- [place], KYQTc Calculation ()509 msMercy Health- [place], KYR Tcml29jjispqw [facility]- [place], KYT [place]-44degreesMercy Health- [place], KYVentricular Eyra60ENP [facility]- [place], KYMercy Health- [place], KYMercy Health- [place], KYEchocardiogram Limited 2D Adulton 68-42-1722Kpqfn Health- [place], KYMercy Health- [place], KYHemoglobin and hematocrit, bloodon 58-69-8741YXW Geufetonmz87 %Low36 - 46 %[facility]- [place], KYPOC Hemoglobin8.0 g/dLLow12 - 16 g/dLMercy Health- [place], KYLactic Acid, POC on 53-10-2425LGV Lactic Acid0.51 mmol/LLow0.56 - 1.39 mmol/LMercy Health- [place], [place] Magnesiumon 54-71-0054Kimgfnrdq [Mass/Vol]2.3 mg/dLNormal1.6-2.6Mer[facility] Hospital Of San BernardinoComment on above:Performed By: #### TYS #### [facility] [address] [id number] Baseball Pitcher: Savage Jacob, MDMagnesium [Mass/Vol]2.3 mg/dL1.6 - 2.6 mg/dL [facility], KYOtheron 62-22-6300Phvqwddywtptya and review of laboratory resultsAbnoSumma Health Wadsworth - [facility]itt[facility], KYInterpretation and review of laboratory resultsAbnoSumma Health Wadsworth - [facility]itt[facility], KYInterpretation and review of laboratory resultsAbnoSumma Health Wadsworth - [facility], [facility] Glucose Fingerstickon 07-07-2019 Interpretation and review of laboratory resultsAbnoSumma Health Wadsworth - [facility], MNPOC Kenskso400 mg/zWGnyq74 - 105 mg/dLMercy Health [facility], KYInterpretation and review of laboratory resultsAbWilson Memorial Hospital, KYPOC Wnblkvr002 mg/lJTyvu38 - 105 mg/dLMercy Health [facility], KYInterpretation and review of laboratory results AbnormalMercy Health [facility], KYPOC Wovgwab989 mg/oBDxhq04 - 105 mg/dLMercy Health [facility], KYInterpretation and review of laboratory resultsAbnoSumma Health Wadsworth - [facility], KYPOC Khiqkef316 mg/mFExni63 - 105 mg/dLMercy Health [facility], KYPOCT Glucoseon 98-40-8069XVU Zhdfqph578 mg/xZRooe79 - 100 mg/dLMercy Health [facility], KYPOC Glucose 165 mg/wSPqqq81 - 100 mg/dLMercy Health [facility], KYPOC Shxnkfd367 mg/yNGktj46 - 100 mg/dLMercy Health [facility], KYPOTASSIUM (POC)on 64-64-1930QGF Potassium3.5 mmol/L3.5 - 4.5 mmol/LMMercy Health [facility], KYPOC Potassium3.7 mmol/L3.5 - 4.5 mmol/LMMercy Health [facility], KYPOC Potassium3.3 mmol/LLow3.5 - 4.5 mmol/LMMercy Health [facility], KYPTon 25-16-6072WOB Coag (PPP) [Relative time]1.2 {INR}NormalAdena Fayette Medical CenterComment on above:Result Comment: Therapeutic Range: Moderate Anticoagulant Intensity: INR = 2.0-3.0 High Anticoagulant Intensity: INR = 2.5-3.5Performed By: #### TYS #### [employer] [address] [place], [place] [id number] Baseball Pitcher: HALEY BarahonaT Coag (PPP) [Time]12.8 sHigh9.0-12.0Adena Fayette Medical CenterComment on above:Performed By: #### TYS #### [employer] [address] [place] [address] Baseball Pitcher: HALEY Barahonarotime-INRon 32-54-9037OQY Coag (PPP) [Relative time]1.2 {INR}[facility]- [place], KYInterpretation and review of laboratory resultsAbnormDayton Children's Hospital- [place], KYPT Coag (PPP) [Time]12.8 sHigWestern Reserve Hospital- [place], KYSODIUM (POC)on 84-63-5663ITE Oiuccq327 mmol/L138 - 146 mmol/LMercy Health- [place], KYVancomycin, Randomon 65-18-5934Mmifhztwvr Random Date last doseNOT REPORTEDWayne Hospital Health- [place], KYVancomycin Random Dose amountNOT REPORTEDWayne Hospital Health- [place], KYVancomycin Random Time last doseNOT REPORTEDUniversity [facility]als [facility]- [place], [place] Vancomycin Rm17.2 ug/mLUniversity Hospitals Ahuja [facility] Center- [place], KYVancomycin,Randomon 07-07-2019 Tviijulbqq15.2 ug/mLNormalAdena Fayette Medical CenterComment on above: Result Comment: Higher trough serum vancomycin concentrations of 15-20 ug/mL are recommended for complicated infections such as bacteremia, endocarditis, osteomyelitis, meningitis, and hospital acquired pneumonia.Performed By: #### CDP, PFA, CP, GLYHGB #### [employer] [address] [place] [id number] Baseball Pitcher: FARIBA Barahonaate last dose,NOT REPORTEDNormUniversity Hospitals TriPoint Medical CenterComment on above:Performed By: #### CDP, PFA, CP, GLYHGB #### [facility] [address] [place] [address] Baseball Pitcher: FARIBA Barahonaose amount,NOT REPORTEDNormUniversity Hospitals TriPoint Medical CenterComment on above:Performed By: #### CDP, PFA, CP, GLYHGB #### [facility] [address] [place] [address] Baseball Pitcher: Savage Jacob MDTime last dose,NOT REPORTEDNormUniversity Hospitals TriPoint Medical CenterComment on above:Performed By: #### CDP, PFA, CP, GLYHGB #### [facility] [address] [place], [place] [phone] Baseball Pitcher: WHITNEY Barahona CHEST PORTABLEon 28-15-8757KL CHEST PORTABLE EXAMINATION: ONE XRAY VIEW OF [...] Signed by: Jesús Clemons MD 07/07/19 Final resultNormalMarymount Hospital, HemarinaMercy Health [facility], [facility], ROBERT SCREEN WITH REFLEXon 53-07-9415Ijwqlxk Ab IF (S) [Titer]NegativeNEGATIVEMercy Health Kings [facility], ROBERT Screenon 18-59-2751EMS ScreenNegativeNoalNEGAdena Fayette Medical CenterComment on above:Result Comment: This test was run on the [employer] RENEE test system. The system provides ten test results (HEp-2NA, dsDNA, SSA, SSB, Sm, SHEET FED PRINTER, Scl-70, Alberta-1, Centromere and Histone analytes) from a single patient sample. A negative RENEE screen indicates that the specimen was negative for all ten markers.Performed By: #### C3, C4, IFX, ANASCX, PE ####[employer] [place] [address] [facility] Director: Savage Jacob MDAregency hospital toledoada Blood Gas, POCon 50-61-6825Dmyjk TestNOT REPORTEDMercy Health- [place], ONIPW268.0Mer [facility]- [place], [place] ModeCPAP/PSMercy Health- [place], KYNegative Base Excess, Sck5Oxxbb Health- [place], MNO2 Device/Flow/%Adult VentilatorMer Health- [place], MNPOC VKQ286.6 mmol/L21 - 28 mmol/LMercy [facility]- [place], MNPOC O2 SAT97 %94 - 98 %[facility]- [place], MNPOC pCO2 49.2HighMer Health- [place], MNPO pCO2 TempNOT REPORTEDmm HgMer Health- [place], [place] POC pH7.306LowMer Health- [place], MNPOC pH TempNOT REPORTEDMer Health- [place], MNPOC PO296.0[facility]- [place], MNPO pO2 TempNOT REPORTEDmm HgMercy Health- [place], [place] Positive Base Excess, ArtNOT REPORTEDMercy Health- [place], KYPt TempNOT REPORTED [facility]- [place], MNSample SiteArterial LineWayne Hospital Health- [place], MNTCO2 (calc), Art 26 mmol/L22 - 29 mmol/LMer[facility]- [place], KYAllen TestNOT REPORTEDMercy Health- [place], QAJKG633.0[facility]- [place], KYModeSIMV(PRVC)+ PSMercy Health- [place], KYNegative Base Excess, Sru9FmuvFrvfd Health- [place], MNO2 Device/Flow/%Adult VentilatorMer Health- [place], MNPOC NPW639.0 mmol/L21 - 28 mmol/LMer[facility]- [place], MNPOC O2 SAT99 %High94 - 98 %[facility]- [place], MNPOC yRA425.0[facility]- [place], MNPO pCO2 Temp NOT REPORTEDmm HgMercy Health- [place], [facility] pH7.383[facility]- [place], [facility] pH Temp NOT REPORTEDMer Health- [place], [facility] [facility] [id number] [facility]- [place], [facility] pO2 Temp NOT REPORTEDmm HgMer Health- [place], MNPositive Base Excess, ArtNOT REPORTEDWayne Hospital [facility]- [place], MNPt TempNOT REPORTEDWayne Hospital [facility]- [place], [facility] Delanole SiteArterial Line [facility]- [place], MNTCO2 (calc), Art23 mmol/L22 - 29 mmol/LMohiohealth grady [facility]- [place], [place] Graham TestNOT REPORTEDWayne Hospital [facility]- [place], PVWQO586.0[facility]- [place], [place] Interpretation and review of laboratory resultsAbnormSandhills Regional Medical Center [facility]- [place], [facility] SIMV([facility])+ PSMohiohealth grady memorial hospital Health- [place], [facility] CHERRY HILLegative Base Excess, Ttz7ZsukLoihe Health- [place], MNO2 Device/Flow/%Adult VentilatorWayne Hospital Health- [place], [facility] PNR835.2 mmol/L21 - 28 mmol/[facility]- [place], [facility] O2 SAT97 %94 - 98 %[facility]- [place], [facility] nSM128.9[facility]- [place], [facility] pCO2 TempNOT REPORTEDmm HgWayne Hospital Health- [place], [place] POC pH7.274LowMer [facility]- [place], [facility] pH TempNOT REPORTEDWayne Hospital [facility]- [place], [facility] IV1762.1[facility], [facility] pO2 TempNOT REPORTEDmm HgWayne Hospital [facility]- [place], [place] Positive Base Excess, ArtNOT REPORTEDWay[facility] Hospital [facility]- [place], MNPt TempNOT REPORTED [facility], [facility] Delanole SiteArterial LineWayne Hospital Health- [place], MNTCO2 (calc), Art 24 mmol/L22 - 29 mmol/LMbarberton citizens hospitaly Health- [place], MNAllen TestNOT REPORTEDWayne Hospital [facility]- [place], BADVW167.0[facility]- [place], MNInterpretation and review of laboratory resultsAbnoNorth Carolina Specialty Hospital [facility]- [place], [facility] HospitaleSIMV([facility])+ PSMohiohealth grady memorial hospital Health- [place], [place] Negative Base Excess, Hdi8Boacg Health- [place], MNO2 Device/Flow/%Adult Ventilator [facility]- [place], [facility] PCY874.9 mmol/L21 - 28 mmol/LMercy Health- [place], MNPO O2 SAT97 %94 - 98 %[facility] [place], MNPOC lJZ855.8[facility]- [place], MNPO pCO2 TempNOT REPORTEDmm HgMercy Health- [place], MNPOC pH7.325LowMer Health- [place], MNPO pH TempNOT REPORTEDMer Health- [place], MNPOC NB2098.5[facility]- [place], MNPO pO2 TempNOT REPORTEDmm HgMercy [facility]- [place], MNPositive Base Excess, ArtNOT REPORTED [facility]- [place], KYPt TempNOT REPORTEDMer Health- [place], MNSample SiteArterial LineMer Health- [place], MNTCO2 (calc), Art25 mmol/L22 - 29 mmol/LMercy [facility]- [place], MNAllen TestNOT REPORTEDMer Health- [place], POVLL670.0[facility]- [place], MNMode SIMV(PR[facility])+ PSMercy Health- [place], KYNegative Base Excess, Etb9YmbjPhxej Health- [place], MNO2 Device/Flow/%Adult VentilatorMer Health- [place], [facility] KKN182.7 mmol/LLow 21 - 28 mmol/LMerc Health- [place], [facility] O2 SAT93 %Low94 - 98 %[facility]- [place], [place] POC dAP681.7Mer [facility]- [place], [facility] pCO2 TempNOT REPORTEDmm HgMer [facility]- [place], [facility] pH7.261LowMer [facility]- [place], [facility] pH TempNOT REPORTEDMer Health- [place], [place] POC PO277.6LowMer [facility]- [place], [facility] pO2 TempNOT REPORTEDmm HgMer [facility]- [place], MNPositive Base Excess, ArtNOT REPORTEDMer Health- [place], MNPt TempNOT REPORTED [facility]- [place], MNSample SiteArterial LineMer Health- [place], MNTCO2 (calc), Art 21 mmol/LLow22 - 29 mmol/LMercy [facility]- [place], MNAllen TestNOT APPLICABLEMer Health- [place], TIAYU240.0[facility]- [place], MNInterpretation and review of laboratory resultsAbnormalMer Health- [place], MNModeCPAP/PSMercy Health- [place], [place] Negative Base Excess, Egc9LargXkabo Health- [place], KYO2 Device/Flow/%Adult VentilatorMer Health- [place], [facility] WKU992.4 mmol/LLow21 - 28 mmol/LMercy [facility]- [place], [facility] O2 SAT97 %94 - 98 %[facility]- [place], [facility] hTS560.7Mer [facility]- [place], [facility] pCO2 TempNOT REPORTEDmm HgMercy Health- [place], [facility] pH7.307LowMercy Health- [place], MNPOC pH TempNOT REPORTEDMercy Health- [place], MNPOC PO296.7Mer [facility]- [place], [place] POC pO2 TempNOT REPORTEDmm HgMer Health- [place], MNPositive Base Excess, ArtNOT REPORTEDMer Health- [place], KYPt TempNOT REPORTEDWayne Hospital [facility]- [place], KYSample Site Arterial LineMer Health- [place], MNTCO2 (calc), Art22 mmol/L22 - 29 mmol/LMercy [facility]- [place], MNBasic Metabolic Panelon [id number] gap [Moles/Vol]15 mmol/L9 - 17 mmol/LMercy Health- [place], KYBun/Cre RatioNOT REPORTEDMer Health- [place], [place] Calcium [Mass/Vol]8.2 mg/dLLow8.6 - 10.4 mg/dLMercy Health- [place], KYChloride [Moles/Vol]108 mmol/LHigh98 - 107 mmol/LMercy Health- [place], KYCO2 [Moles/Vol]21 mmol/L20 - 31 mmol/LMercy [facility]- [place], KYCreatinine [Mass/Vol]1.77 mg/dLHigh0.5 - 0.9 mg/dLAdena Fayette Medical Centercy Health- [place], KYGFR Jppuhlif69 mL/minLow>60[facility]- [place], KYGFR CommentMer Health- [place], KYGFR Non- Pqpheqda03 mL/minLow>60 [facility]- [place], KYGFR StagingNOT REPORTEDWay[facility] Hospital [facility]- [place], MNGlucose [Mass/Vol]183 mg/tKSybm96 - 99 mg/dLWayne Hospital Health- [place], KYInterpretation and review of laboratory resultsAbnormalMer Health- [place], KYPotassium [Moles/Vol]4.0 mmol/L3.7 - 5.3 mmol/LMercy [facility], KYSodium [Moles/Vol]144 mmol/L135 - 144 mmol/LMMercy Health [facility], KYUrea nitrogen [Mass/Vol]49 mg/dLHigh8 - 23 mg/dLMercy Health [facility], KYBun/Cre RatioNOT REPORTEDMercy Health [facility], KYGFR 35 mL/minLow>60[facility], KYGFR CommentMercy Health [facility], KYGFR Non- Jnvxotlj20 mL/minLow>60[facility], KYGFR StagingNOT [facility], KYInterpretation and review of laboratory resultsAbnormalMercy Health [facility], KYBasic Metabolic Profon 07-06-2019(cont.)[facility] Municipal HospitalComment on above:Result Comment: Average GFR for 70 or more years old: 75 mL/min/1.73sq m Chronic Kidney Disease: <60 mL/min/1.73sq m Kidney failure: <15 mL/min/1.73sq m eGFR calculated using average adult body mass. Additional eGFR calculator available at: http://www.LikeBetter.com/multiple_crcl_2012.htmPerformed By: #### TYS #### [employer] [address] [place] [address] Baseball Pitcher: HALEY Barahonaerformed By: #### CBC, PT, BMP, MG, VNCR, LIVP ####[employer] [place] [address] Lab Director: Chayito Barahona gap [Moles/Vol]15 mmol/LNormal9-17[facility]ayette Medical CenterComment on above:Performed By: #### TYS #### [employer] [address] [place] [address] Baseball Pitcher: Savage Jacob MDCalcium [Mass/Vol]8.2 mg/dLLow8.6-10.4A[facility]ayette Medical CenterComment on above:Performed By: #### TYS #### [employer] [address] [place] [address] Baseball Pitcher: CASEY Barahonahloride [Moles/Vol]108 mmol/PUdct78-728FiotkAdena Fayette Medical CenterComment on above:Performed By: #### TYS #### [address] [address] Baseball Pitcher: Savage Jacob MDCO2 [Moles/Vol]21 mmol/ZQzcihh38-09NhkwuAdena Fayette Medical CenterComment on above:Performed By: #### TYS #### [address] [address] Baseball Pitcher: CASEY Barahonareatinine [Mass/Vol]1.77 mg/dLHigh0.50-0.90 [facility] Medical CenterComment on above:Performed By: #### TYS #### [address] [address] Baseball Pitcher: SALLY Barahona, Amer34 mL/minLow>60[facility] Medical CenterComment on above:Performed By: #### TYS #### [address] [address] Baseball Pitcher: SALLY Barahona,non Amer28 mL/minLow>60[facility] Medical CenterComment on above:Performed By: #### TYS #### [address] [address] Baseball Pitcher: Savage Jacob MDGlucose [Mass/Vol]183 mg/tBOmbo86-81KrkxuKeck Hospital of USCComment on above:Performed By: #### TYS #### [address] [address] Baseball Pitcher: Savage Jacob MDPotassium [Moles/Vol]4.0 mmol/LNormal3.7-5.3 [facility] CenterComment on above:Performed By: #### TYS #### [facility] [address] [place] [address] Baseball Pitcher: ZANA Barahonaodium [Moles/Vol]144 mmol/LQsdqpi773-791GzwrdAdena Fayette Medical CenterComment on above:Performed By: #### TYS #### [facility] [address] [place] [address] Baseball Pitcher: Sherie Barahona nitrogen [Mass/Vol]49 mg/dLHigh8-23[facility] Medical CenterComment on above:Performed By: #### TYS #### [facility] [address] [place] [address] Baseball Pitcher: Savage Jacob MDBUN/CRE RatioNOT REPORTEDNormal9-20[facility] Medical CenterComment on above:Performed By: #### TYS #### [address] [address] Baseball Pitcher: ZANA Barahonataging:NOT REPORTEDNormalAdena Fayette Medical CenterComment on above:Performed By: #### TYS #### [facility] [address] [place] [address] Baseball Pitcher: Savage Jacob MDGFR, Amer35 mL/minLow>60[facility] Medical CenterComment on above:Performed By: #### CBC, PT, BMP, MG, VNCR, LIVP ####[facility] [address] [place] [address] Lab Director: SALLY Barahona,non Amer29 mL/minLow>60[facility] Medical CenterComment on above:Performed By: #### CBC, PT, BMP, MG, VNCR, LIVP ####[facility] [address] [place] [address] Lab Director: Savage Jacob MDBUN/CRE RatioNOT REPORTEDNormal9-20[facility] Comment on above:Performed By: #### CBC, PT, BMP, MG, VNCR, LIVP ####[facility] [address]zwcybv[address] [place] [address] Lab Director: Savage Jacob MDStaging:NOT REPORTEDLancaster Municipal HospitalComment on above:Performed By: #### CBC, PT, BMP, MG, VNCR, LIVP ####[facility] Ptkqfmbhasks2612 [place] [address] Lab Director: Savage Jacob MDAnion gap [Moles/Vol]17 mmol/LNormal9-17[facility], KYComment on above:Performed By: #### CBC, PT, BMP, MG, VNCR, LIVP ####[facility] [address] [place] [address] Lab Director: Savage Jacob MDCalcium [Mass/Vol]8.3 mg/dLLow8.6-10.4[facility], KYComment on above:Performed By: #### CBC, PT, BMP, MG, VNCR, LIVP ####[facility] [address] [place] [address] Lab Director: Savage Jacob MDChloride [Moles/Vol]109 mmol/QPgdy57-741Kdzvf Health- [place], KYComment on above:Performed By: #### CBC, PT, BMP, MG, VNCR, LIVP ####[facility] [address]jr[address] [place] [address] Lab Director: Savage Jacob MDCO2 [Moles/Vol]18 mmol/RQbl55-82 [facility], KYComment on above:Performed By: #### CBC, PT, BMP, MG, VNCR, LIVP ####[facility] [address]tcnqlrv[address] [place] [address] Lab Director: Savage Jacob MDCreatinine [Mass/Vol]1.76 mg/dLHigh0.50-0.90[place], KYComment on above:Performed By: #### CBC, PT, BMP, MG, VNCR, LIVP ####[facility] [address]om[address] [place], [place] [phone] Director: Savage Jacob MDGlucose [Mass/Vol]212 mg/cWCqat80-87QzyfwGlady, [place] Comment on above:Performed By: #### CBC, PT, BMP, MG, VNCR, LIVP ####[facility] Epzbnydqurci28[address] [place], [place] [phone] Director: HALEY Barahonaotassium [Moles/Vol]4.1 mmol/LNormal3.7-5.3MGlady, [place] Comment on above:Performed By: #### CBC, PT, BMP, MG, VNCR, LIVP ####[facility] J[address]zrlmuovsri9438 [place], [place] [phone] Director: ZANA Barahonaodium [Moles/Vol]144 mmol/RHdohtb808-995NmoctQueen Anne, KYComment on above:Performed By: #### CBC, PT, BMP, MG, VNCR, LIVP ####[facility] [address]qdexwnhv6606 [place] [address] Lab Director: Savage Jacob MDUrea nitrogen [Mass/Vol]47 mg/dLHigh8-23[place], KYComment on above:Performed By: #### CBC, PT, BMP, MG, VNCR, LIVP ####[facility] Aoqnnyrvfkhy3174 [place], [place] [phone] Director: Ulysses Barahona 45-09-4180Ockfzwnxutd distribution width (RBC) [Ratio]15.8 %High 11.8-14.4[facility] Medical CenterComment on above:Performed By: #### CBC, PT, BMP, MG, VNCR, LIVP ####[facility] Zkwhpghqatjg0703 [place] [address] Lab Director: Savage Jacob MDHematocrit (Bld) [Volume fraction]26.6 %Low36.3-47.1MKeck Hospital of USCComment on above: Performed By: #### CBC, PT, BMP, MG, VNCR, LIVP ####[facility] T[address]xadtnjlvhb8289 [place] [address] Lab Director: Savage Jacob MD Hemoglobin (Bld) [Mass/Vol]8.4 g/dLLow11.9-15.1MKeck Hospital of USC Comment on above:Performed By: #### CBC, PT, BMP, MG, VNCR, LIVP ####[facility] [address] [place] [address] Lab Director: ALISSA BarahonaCH (RBC) [Entitic mass]28.1 osRxzxja38.2-33.5A[facility] Medical CenterComment on above:Performed By: #### CBC, PT, BMP, MG, VNCR, LIVP ####[facility] [address] [place] [address] Lab Director: ALISSA BarahonaCHC (RBC) [Mass/Vol]31.6 g/kCYprcmo72.4-34.8[facility] Medical CenterComment on above:Performed By: #### CBC, PT, BMP, MG, VNCR, LIVP ####[facility] X[address]uwmozystm[address]697 [place] [address] Lab Director: ALISSA BarahonaCV (RBC) [Entitic vol]89.0 mEPlzbdd97.6-102.9[facility] Medical CenterComment on above:Performed By: #### CBC, PT, BMP, MG, VNCR, LIVP ####[facility] [address]xsdxaxvseq9778 [place] [address] Lab Director: Savage Jacob MDNRBC Automated0.2 per 100 WBCHigh0.0A[facility]ayette Medical CenterComment on above:Performed By: #### CBC, PT, BMP, MG, VNCR, LIVP ####[facility] [address]pt[address]jsk5245 [place] [address] Lab Director: Taylor Barahonatemartine mean volume (Bld) [Entitic vol]10.5 fL Normal8.1-13.5A[facility]ayette Medical CenterComment on above:Performed By: #### CBC, PT, BMP, MG, VNCR, LIVP ####[facility] Uawqrhmxgzdy9938 [place], [place] [phone] Director: Taylor Barahonatelets (Bld) [#/Vol]96 10*3/jXQlp819-266IhinbAdena Fayette Medical CenterComment on above:Performed By: #### CBC, PT, BMP, MG, VNCR, LIVP ####[facility] [address]hhrsczuzz[address] [place] [address] Lab Director: Savage Jacob MDRBC (Bld) [#/Vol]2.99 10*6/uLLow3.95-5.11[facility] Medical CenterComment on above:Performed By: #### CBC, PT, BMP, MG, VNCR, LIVP ####[facility] Itxtovnxwecs8404 [place], [place] [phone] Director: Savage Jacob MDWBC (Bld) [#/Vol]11.6 10*3/uLHigh3.5-11.3MKeck Hospital of USCComment on above: Performed By: #### CBC, PT, BMP, MG, VNCR, LIVP ####[facility] Qtoqemmpceru1776 [place] [address] Lab Director: Savage Jacob MD Erythrocyte distribution width (RBC) [Ratio]15.8 %High11.8 - 14.4 %[facility], KYHematocrit (Bld) [Volume fraction]26.6 %Low36.3 - 47.1 %[place], KYHemoglobin (Bld) [Mass/Vol]8.4 g/dLLow11.9 - 15.1 g/dLQueen Anne, [place] Interpretation and review of laboratory resultsAbnormalQueen Anne, KYMCH (RBC) [Entitic mass]28.1 pg25.2 - 33.5 pgQueen Anne, KYMCHC (RBC) [Mass/Vol]31.6 g/dL28.4 - 34.8 g/dLQueen Anne, KYMCV (RBC) [Entitic vol] 89.0 fL82.6 - 102.9 fLQueen Anne, KYPlatelet mean volume (Bld) [Entitic vol]10.5 fL8.1 - 13.5 fLQueen Anne, KYPlatelets (Bld) [#/Vol]96 10*3/uLLow [place], KYRBC (Bld) [#/Vol]2.99 10*6/uLLow3.95 - 5.11 m/uLMercy Health [facility], MNWBC (Bld) [#/Vol]11.6 10*3/uLHighQueen Anne, KYWBC (Bld) [#/Vol]0.2 10*3/uLHigh0.0 per 100 WBCQueen Anne, KYCT HEAD WO CONTRASTon [id number] HEAD WO CONTRASTEXAMINATION: CT OF THE HEAD WITHOUT CONTRAST 07/06/2019 [...] Signed by: Aliyah Das MD 07/06/19 Final resultNoFort Hamilton HospitalMercy Health- [place], KYMercy Health- [place], KYMercy Health- [place], KYEKG 12 Leadon [id number] Biat21ATDRflhg Health- [place], KYAtrial Wooa72PBAPanse Health- [place], KYP Nmrq87rsfnbmgWhkpg Health- [place], KYP-R Vshivrlv819 msMercy Health- [place], KYQ-T Ipuzmatf224 msMercy Health- [place], KYQ-T Itwecezc869 msMercy Health- [place], KYQRS Gxfsfuej432 msMercy Health- [place], [place] QRS Boxzwccr161 msMercy Health- [place], KYQTc Calculation (Bazett)528 msMercy Health- [place], KYQTc Calculation (Bazett)520 msMercy Health- [place], KYR Gepa89zqcjqba [facility]- [place], KYR Xgfg30luuzlrhYzgcl Health- [place], KYT [place]-90degreesMercy Health- [place], KYVentricular Ileh63NPGBayfz Health- [place], KYVentricular Ajil28NTO [facility]- [place], KYAtrial Dvst10NOSDnfyq Health- [place], KYP Zkri82zmzowxoXazqz Health- [place], KYP-R Ratbhiyd285 msMercy Health- [place], KYQ-T Aaernyzn483 msMercy Health- [place], KYQRS Qzuxlksr18 msMercy Health- [place], KYQTc Calculation (Bazett)504 msMercy Health- [place], KYR Xlun22hkcdudnDipto Health- [place], KYVentricular Fqaf63PRO [facility]- [place], KYElectrophoresis Protein, Serum without Reflex to Immunofixationon [id number] %76 %High45 - 65 %[facility]- [place], KYAlbumin [Mass/Vol]3.6 g/dL3.2 - 5.2 g/dLMercy Health [facility], KYAlpha 1 %4 %3 - 6 %[facility], KYAlpha 2 %8 %6 - 13 %[facility], IEFkmcg-0-Asllvvzt6.2 g/dL 0.1 - 0.4 g/dLMercy Health [facility], WHXumvl-1-Ewxnzlix0.4 g/dLLow0.5 - 0.9 g/dLMercy Health [facility], KYBeta Globulin0.3 g/dLLow0.5 - 1.1 g/dLMercy Health [facility], KYBeta Percent6 %Low11 - 19 %[facility], KYGamma Globulin0.3 g/dLLow0.5 - 1.5 g/dLMercy Health [facility], KYGamma Globulin %6 %Low9 - 20 %[facility], [place] Interpretation and review of laboratory resultsAbnormalMercy Health [facility], [place] Pathologist Cyto stain Nom (Cvx/Vag) [ID]ELECTRONICALLY SIGNED. LOKI FRANCISCO M.D.[facility], MNProtein [Mass/Vol]4.7 g/dLLow6.4 - 8.3 g/dL [facility], MNProtein Electrophoresis, SerumDECREASED ALPHA 2 GLOBULIN. MAY BE OBSERVED IN A VARIETY OF CONDITIONS, e.g. HEPATIC DISEASE, ANEMIAS, AND HEMOLYSIS.[facility], MNTotal Prot. Sum4.8 g/dLLow6.3 - 8.2 g/dLMercy Health [facility], MNTotal Prot. Sum,%100 %98 - 102 %[facility], MNHepatic Function Panelon [id number] [Mass/Vol]3.4 g/dLLow3.5 - 5.2 g/dLMercy Health [facility], MNAlbumin/Globulin [Mass ratio]1.9 {ratio}[facility], KYALP [Catalytic activity/Vol]37 U/L35 - 104 U/LMMercy Health [facility], KYALT [Catalytic activity/Vol]9 U/L5 - 33 U/LMMercy Health [facility], KYAST [Catalytic activity/Vol]38 U/LHigh<32[facility], KYBilirubin Ql (U)0.30 mg/dL0.3 - 1.2 mg/dLMercy Health [facility], MNBilirubin, Indirect0.19 mg/dL0 - 1 mg/dLMercy Health [facility], [place] Bilirubin.direct [Mass/Vol]0.11 mg/dL<0.31[facility], KYGlobulinNOT REPORTED1.5 - 3.8 g/dLMercy Health [facility], KYInterpretation and review of laboratory resultsAbnormalMercy Health [facility], KYProtein [Mass/Vol]5.2 g/dLLow6.4 - 8.3 g/dLMercy Health [facility], KYImmunofixation serum profileon 07-06-2019 Pathologist Cyto stain Nom (Cvx/Vag) [ID]ELECTRONICALLY SIGNED. LOKI FRANCISCO M.D.[facility], MNSerum IFX InterpIMMUNOFIXATION IS NEGATIVE FOR MONOCLONAL IMMUNOGLOBULIN.[place], KYImmunofixation,Bloodon 07-06-2019 IFX - Interpret.IMMUNOFIXATION IS NEGATIVE FOR MONOCLONAL IMMUNOGLOBULIN.Normal [facility] Medical CenterComment on above:Performed By: #### C3, C4, IFX, ANASCX, PE ####[employer] P[address]rf[address]fc[address] [place] [phone] Director: HALEY Barahonaathologist Review:ELECTRONICALLY SIGNED. LOKI FRANCISCO M.D.[facility] Municipal HospitalComment on above: Performed By: #### C3, C4, IFX, ANASCX, PE ####[employer] Gwcvrcdxtmiz[address] [place] [address] Lab Director: Debbie Barahona Profileon [id number] [Mass/Vol]3.4 g/dLLow3.5-5.2MKeck Hospital of USC Comment on above:Performed By: #### TYS #### [facility] [address] [place] [address] Baseball Pitcher: Yanna Barahonabumin/Globulin [Mass ratio]1.9 {ratio}Normal 1.0-2.5A[facility] Medical CenterComment on above:Performed By: #### TYS #### [facility] [address] [place] [address] Baseball Pitcher: Yanna Barahonakaruss Phos37 U/BKrequf59-575ClwblAdena Fayette Medical CenterComment on above:Performed By: #### TYS #### [facility] [address] [place] [address] Baseball Pitcher: Savage Jacob MDALT [Catalytic activity/Vol]9 U/LNormal5-33[facility] Medical CenterComment on above:Performed By: #### TYS #### [address] [address] Baseball Pitcher: Savage Jacob MDAST [Catalytic activity/Vol]38 U/LHigh<32A[facility] Medical CenterComment on above:Performed By: #### TYS #### [address] [address] Baseball Pitcher: Savage Jacob MDBilirubin Ql (U)0.30 mg/dLNormal0.3-1.2MKeck Hospital of USCComment on above:Performed By: #### TYS #### [address] [address] Baseball Pitcher: Sammie Barahonairubin, Indirect0.19 mg/dLNormal0.00-1.00 [facility] CenterComment on above:Performed By: #### TYS #### [address] [address] Baseball Pitcher: Yenny Barahona.direct [Mass/Vol]0.11 mg/dLNormal<0.31 [facility] CenterComment on above:Performed By: #### TYS #### [address] [id number] Baseball Pitcher: Savage Jacob MDProtein [Mass/Vol]5.2 g/dLLow6.4-8.3MKeck Hospital of USCComment on above:Performed By: #### TYS #### [facility] [facility] [place] [address] Baseball Pitcher: Savage Jacob MDGlobulin (S) [Mass/Vol]NOT REPORTEDNormal1.5-3.8 [facility] CenterComment on above:Performed By: #### TYS #### [facility] [address] [place] [address] Baseball Pitcher: Miles Barahonagnesiumon 30-23-0489Rcxectisc [Mass/Vol]2.2 mg/dLNormal1.6-2.6MercHolmes Regional Medical Center, MNComment on above:Performed By: #### TYS #### [facility] [place] [address] Baseball Pitcher: Savage Jacob MDOtheron 05-66-5160Rnpnkrjbrkqnif and review of laboratory resultsAbWilson Memorial Hospital, KYT [place]-36deKettering Health Troy, [facility], [facility], KYInterpretation and review of laboratory resultsAbWilson Memorial Hospital, MNInterpretation and review of laboratory resultsAbWilson Memorial Hospital, [facility] Glucose Fingerstickon [id number] and review of laboratory resultsAbWilson Memorial Hospital, [facility] Oipftog495 mg/kGZwjd67 - 105 mg/dLMercy Health [facility], [facility] Taokado21 mg/dL65 - 105 mg/dLMercy Health [facility], [facility] Kdoawdk19 mg/dL65 - 105 mg/dLMercy Health [facility], KYPOC Irvgrdh49 mg/dL65 - 105 mg/dLMercy Health [facility], MNPOC Cuollja68 mg/dL65 - 105 mg/dLMercy Health [facility], KYPOCT Glucoseon [id number] Xuxufmt991 mg/pMIxyl86 - 100 mg/dLMercy Health [facility], [facility] Kbobqpx536 mg/tXObdy64 - 100 mg/dLMercy Health [facility], [facility] Qfxovqo949 mg/nTEmpb83 - 100 mg/dLMercy Health [facility], KYPROTEIN ELECTROPHORESIS, URINEon 07-06-2019P E Interpretation, UURINE PROTEIN CONCENTRATION IS ELEVATED. PROTEIN ELECTROPHORESIS DEMONSTRATES INCREASED GLOMERULAR PERMEABILITY. A DECREASE IN TUBULAR FUNCTION CANNOT BE RULED OUT. [facility], MNPathologist Cyto stain Nom (Cvx/Vag) [ID]ELECTRONICALLY SIGNED. LOKI FRANCISCO M.D.[facility], JERRYSpecimen type Nom (Spec) .URINEMercy Health [facility], MNUrine Total Yhalugc95 mg/dLMercy Health Kings [facility] Hospital, MNPTon [id number] Coag (PPP) [Relative time]1.2 {INR}[facility] HospitalComment on above:Result Comment: Therapeutic Range: Moderate Anticoagulant Intensity: INR = 2.0-3.0 High Anticoagulant Intensity: INR = 2.5-3.5Performed By: #### CBC, PT, BMP, MG, VNCR, LIVP ####[id number] [place] [address] Lab Director: RIGO Barahona Coag (PPP) [Time]12.1 sHigh9.0-12.0[facility] Comment on above:Performed By: #### CBC, PT, BMP, MG, VNCR, LIVP ####Claudia [id number] [place] [address] Lab Director: MDProt. [place] Electroph, Blon [id number] Review:ELECTRONICALLY SIGNED. LOKI FRANCISCO M.D.[facility] HospitalComment on above:Performed By: #### C3, C4, IFX, ANASCX, PE ####[facility] F[address]ykrnjy[address] [place] [address] Lab Director: MDProt. [place] Elect-InterpDECREASED ALPHA 2 GLOBULIN. MAY BE OBSERVED IN A VARIETY OF CONDITIONS, e.g.NormalAdena Fayette Medical CenterComment on above:Result Comment: HEPATIC DISEASE, ANEMIAS, AND HEMOLYSIS. DECREASED BETA GLOBULINS. MAY BE DUE TO SELECTIVE DECREASE IN TRANSFERRIN, C3, OR BETA LIPOPROTEIN. HYPOGAMMAGLOBULINEMIA IS PRESENT. MAY BE OBSERVED IN VARIETY OF CONDITIONS INCLUDING MALIGNANT LYMPHOPROLIFERATIVE DISEASE (MULTIPLE MYELOMA, LYMPHOMA, etc.), VARIOUS CYTOTOXIC OR IMMUNOSUPPRESSIVE DRUGS (UMBRELLA SUPERVISOR STEROIDS, etc.), PLASMAPHORESIS, AND SOME IMMUNODEFICIENCY CONDITIONS. IMMUNOFIXATION IS NEGATIVE FOR MONOCLONAL IMMUNOGLOBULIN.Performed By: #### C3, C4, IFX, ANASCX, PE ####[facility] [address]zl[address]ermx[address] [place], [place] [phone] Director: Savage Jacob MDAlbumin [Mass/Vol]3.6 g/dLNormal3.2-5.2 [facility] CenterComment on above:Performed By: #### C3, C4, IFX, ANASCX, PE ####[facility] [address] [place] [address] [phone] Director: Savage Jacob MDAlbumin, %76 %Audt82-18LywapAdena Fayette Medical CenterComment on above:Performed By: #### C3, C4, IFX, ANASCX, PE ####[facility] Ifynwesmljxl4829 [place], [place] [phone] Director: Savage Jacob MDAQEBmzrp-9-wlxuamcxj9.2 g/dLNormal0.1-0.4A[facility] Medical CenterComment on above:Performed By: #### C3, C4, IFX, ANASCX, PE ####[facility] Jnwnlghtobne3786 [place], [place] [phone] Director: Savage Jacob MDAlpha-1-globulins,%4 %Normal3-6[facility] Of San BernardinoComment on above:Performed By: #### C3, C4, IFX, ANASCX, PE ####[facility] [address]qtqzwfa[address]273 [place] [address] Lab Director: Savage Jacob MDANSXygfl-9-eywsxvnfg6.4 g/dLLow0.5-0.9[facility] Comment on above:Performed By: #### C3, C4, IFX, ANASCX, PE ####[facility] [address]lsuyzkvaemm[address]22 [place] [address] Lab Director: Savage Jacob MDAlpha-2-globulins,%8 %Normal6-13[facility] Comment on above:Performed By: #### C3, C4, IFX, ANASCX, PE ####[facility] [address]ey[address]pbh[address] [place] [address] Lab Director: Savage Jacob MDBeta-globulins0.3 g/dLLow0.5-1.1MKeck Hospital of USC Comment on above:Performed By: #### C3, C4, IFX, ANASCX, PE ####[facility] Mjlcahsyxptm4682 [place] [address] Lab Director: Savage Jacob MDBeta-globulins,%6 %Kuh79-62KhcraAdena Fayette Medical CenterComment on above:Performed By: #### C3, C4, IFX, ANASCX, PE ####[facility] [address]efacisuhgp[address]644 [place] [address] Lab Director: Savage Jacob MD Gamma-globulins0.3 g/dLLow0.5-1.5A[facility]ayette Medical CenterComment on above:Performed By: #### C3, C4, IFX, ANASCX, PE ####[facility] [address]qib[address]bfldo[address] [place] [address] Lab Director: Savage Jacob MD Gamma-globulins,%6 %Low9-20[facility] Medical CenterComment on above: Performed By: #### C3, C4, IFX, ANASCX, PE ####[facility] [address]jdgemhftoo0517 [place] [address] Lab Director: Lindsey Barahona Prot. Sum 4.8 g/dLLow6.3-8.2[facility] Of San BernardinoComment on above:Performed By: #### C3, C4, IFX, ANASCX, PE ####[facility] [address]stbhvhtfajr7705 [place] [address] Lab Director: Lindsey Barahona Prot. Sum,%100 %Normal 98-102A[facility] Fayette Medical CenterComment on above:Performed By: #### C3, C4, IFX, ANASCX, PE ####[facility] Qkhrrxoxymun6221 [place] [phone] Director: Ric Barahona. Electroph, Uron 07-06-2019 Ur.-Prot.Elect-InterURINE PROTEIN CONCENTRATION IS ELEVATED. PROTEIN ELECTROPHORESIS DEMONSTRATESNormalAdena Fayette Medical CenterComment on above:Result Comment: INCREASED GLOMERULAR PERMEABILITY. A DECREASE IN TUBULAR FUNCTION CANNOT BE RULED OUT.Performed By: #### DENIZ DAVIS #### [facility] [address] [place] [address] Baseball Pitcher: Prem Barahonaologist Review:ELECTRONICALLY SIGNED. LOKI FRANCISCO M.D.[facility] HospitalComment on above: Performed By: #### UA, UMICAO #### [facility] [address] [place] [address] Baseball Pitcher: Christo Barahona-INRon [phone] Coag (PPP) [Relative time]1.2 {INR}[facility]- [place], KYInterpretation and review of laboratory resultsAbnormalMercy Health- [place], KYPT Coag (PPP) [Time]12.1 sHighMercy Health- [place], KYVANCOMYCIN, RANDOMon 62-28-3583Tovkdbztev Random Date last doseNOT REPORTEDMercy Health- [place], KYVancomycin Random Dose amountNOT REPORTEDMercy Health- [place], KYVancomycin Random Time last doseNOT REPORTEDMercy Health- [place], [place] Vancomycin Rm19.2 ug/mLMer[facility] Health [facility], JERRYVancomycin,Randomon 07-06-2019 Ruhbgytmwa51.2 ug/mLNormalAdena Fayette Medical CenterComment on above: Result Comment: Higher trough serum vancomycin concentrations of 15-20 ug/mL are recommended for complicated infections such as bacteremia, endocarditis, osteomyelitis, meningitis, and hospital acquired pneumonia.Performed By: #### TYS #### [employer] [address] [place] [address] Baseball Pitcher: FARIBA Barahonaate last dose,NOT REPORTEDNormUniversity Hospitals TriPoint Medical CenterComment on above:Performed By: #### TYS #### [facility]Near[facility] [address] [place] [address] Baseball Pitcher: FARIBA Barahonaose amount,NOT REPORTEDNoFort Hamilton HospitalComment on above:Performed By: #### TYS #### [facility]Near[facility] [address] [place] [address] [phone] Baseball Pitcher: Pb Barahona last dose,NOT REPORTEDNoFort Hamilton HospitalComment on above:Performed By: #### TYS #### [employer] [address] [place] [address] [phone] Baseball Pitcher: WHITNEY Barahona CHEST PORTABLEon 98-47-1923FZ CHEST PORTABLE EXAMINATION: ONE XRAY VIEW OF [...] Signed by: Ana Grace MD 07/06/19 Final resultNormalClermont County Hospital- [place], [facility]- [place], KYUniversity Hospitals [facility]huja [facility]- [place], KYAMMONIAon 12-27-4815Varkuxg (P) [Mass/Vol]26 umol/L11 - 51 umol/LMohiohealth grady memorial hospital Health- [place], KYAmmoniaon 59-17-6018Qwpsywb (P) [Mass/Vol]26 umol/NEwuzev00-17LazofAdena Fayette Medical CenterComment on above: Performed By: #### UA, UMICAO #### [employer] [facility] [place] [phone] Baseball Pitcher: Savage Jacob MDAnistarla Gap (Calc) POCon 82-38-1033Eydrx gap [Moles/Vol]11 mmol/L7 - 16 mmol/[facility]- [place], KYAnion gap [Moles/Vol]13 mmol/L7 - 16 mmol/[facility] [place], MNArterial Blood Gas, POCon 78-46-0028Eqlxu TestNOT APPLICABLEDayton Children'S Hospital [place], JJUTL892.0[facility], MNModePRVCMDoctors Hospital [place], KYNegative Base Excess, Nta3QuwgqMercy Health [facility], KYO2 Device/Flow/% Adult VentilatorMercy Health [facility], [facility] VVP768.7 mmol/L21 - 28 mmol/LMUniversity [facility]als Geneva [facility]- [place], MNPOC O2 SAT96 %94 - 98 %[facility] [place], [facility] rPT394.3MUniversity Hospitals Geneva [facility]- [place], [facility] pCO2 TempNOT REPORTEDmm HgUniversity Hospitals Ahuja Medical Center- [place], MNPOC pH7.381[facility]- [place], MNPO pH TempNOT REPORTEDDayton Children'S Hospital [place], [facility] PO286.4[facility]- [place], [facility] pO2 TempNOT REPORTEDmm HgMercy Health- [place], KYPositive Base Excess, ArtNOT REPORTEDMer[facility]- [place], KYPt TempNOT REPORTEDMercy [facility]- [place], MNSale SiteArterial LineMercy Health- [place], KYTCO2 (calc), Art24 mmol/L22 - 29 mmol/LMercy [facility]- [place], KYAllen TestNOT APPLICABLEMercy Health- [place], FOCLH156.0 [facility]- [place], KYModePRVCMercy Health- [place], KYNegative Base Excess, Gyq4Dfep [facility]- [place], KYO2 Device/Flow/%Adult VentilatorMercy Health- [place], KYPOC HCO3 23.3 mmol/L21 - 28 mmol/LM[facility]- [place], MNPOC O2 SAT94 %94 - 98 %[facility]- [place], MNPOC cLJ077.5HighMer Health- [place], MNPO pCO2 TempNOT REPORTEDmm Hg [facility]- [place], MNPOC pH7.289LowMercy Health- [place], MNPO pH TempNOT REPORTED [facility]- [place], MNPOC PO281.3LowMercy Health- [place], MNPO pO2 TempNOT REPORTEDmm HgMercy Health- [place], KYPositive Base Excess, ArtNOT REPORTEDMer Health- [place], [place] Pt TempNOT REPORTEDMer Health- [place], [facility] SiteArterial LineWayne Hospital Health- [place], KYTCO2 (calc), Art25 mmol/L22 - 29 mmol/LMercy [facility]- [place], MNBACLARK REGIONAL [facility] METABOLIC PANELon 73-01-5377Jxzuf gap [Moles/Vol]18 mmol/LHigh9 - 17 mmol/LMercy [facility]- [place], KYBun/Cre RatioNOT REPORTEDMercy Health- [place], KYCalcium [Mass/Vol]8.2 mg/dL Low8.6 - 10.4 mg/dLMercy Health- [place], KYChloride [Moles/Vol]110 mmol/LHigh98 - 107 mmol/LMercy [facility]- [place], KYCO2 [Moles/Vol]17 mmol/LLow20 - 31 mmol/LMer[facility]- [place], KYCreatinine [Mass/Vol]1.66 mg/dLHigh0.5 - 0.9 mg/dLMercy Health- [place], KYGFR Cqctexku97 mL/minLow>60[facility]- [place], KYGFR CommentMercy Health- [place], KYGFR Non- Hgjpfxgj35 mL/minLow>60[facility]- [place], KYGFR StagingNOT REPORTEDMercy Health- [place], KYGlucose [Mass/Vol]176 mg/dRIepi12 - 99 mg/dLMercy Health- [place], KYInterpretation and review of laboratory resultsAbnormal [facility]- [place], KYPotassium [Moles/Vol]4.5 mmol/L3.7 - 5.3 mmol/LM[facility]- [place], KYSodium [Moles/Vol]145 mmol/IJtqr080 - 144 mmol/LM[facility]- [place], KYUrea nitrogen [Mass/Vol]41 mg/dLHigh8 - 23 mg/dLMercy Health- [place], KYBL GAS,MIX-RUFINO,EXTon 92-98-5437YgXN, Mixed, Extended0.6 %0 - 5 %[facility]- [place], KYHemoglobin, Mixed, Extended8.1 g/dLLow12 - 18 g/dLMercy Health- [place], [place] Interpretation and review of laboratory resultsAbnormalMercy Health- [place], [place] MetHb, Mixed, Extended0.6 %0 - 1.5 %[facility]- [place], KYO2 Content, Mixed, Ydvfckyv5Yweod Health- [place], KYO2 Sat, Mixed, Wetbgdfv40.4 %Low60 - 80 %[facility]- [place], KYOxygen Odlisq36%[facility]- [place], KYBasic Metabolic Panelon 92-17-4988Pxysq gap [Moles/Vol]16 mmol/L9 - 17 mmol/LMer[facility]- [place], KYBun/Cre RatioNOT REPORTEDMercy Health- [place], KYCalcium [Mass/Vol]8.8 mg/dL8.6 - 10.4 mg/dLMercy Health- [place], KYChloride [Moles/Vol]112 mmol/LHigh98 - 107 mmol/LMer[facility]- [place], KYCO2 [Moles/Vol]19 mmol/LLow20 - 31 mmol/LMer[facility]- [place], [place] Creatinine [Mass/Vol]1.81 mg/dLHigh0.5 - 0.9 mg/dLMercy Health- [place], KYGFR Lrnsnwqy66 mL/minLow>60[facility]- [place], KYGFR CommentMercy Health- [place], KYGFR Non- Hfpthxvi88 mL/minLow>60[facility], KYGFR StagingNOT REPORTEDMercy Health [facility], KYGlucose [Mass/Vol]131 mg/kEEbdp84 - 99 mg/dLMercy Health [facility], KYInterpretation and review of laboratory resultsAbnormalMercy Health [facility], KYPotassium [Moles/Vol]4.7 mmol/L3.7 - 5.3 mmol/LMMercy Health [facility], KYSodium [Moles/Vol]147 mmol/QPkwe242 - 144 mmol/LMMercy Health [facility], KYUrea nitrogen [Mass/Vol]31 mg/dLHigh8 - 23 mg/dLMercy Health [facility], KYBasic Metabolic Profon 07-05-2019(cont.)NormalAdena Fayette Medical CenterComment on above: Result Comment: Average GFR for 70 or more years old: 75 mL/min/1.73sq m Chronic Kidney Disease: <60 mL/min/1.73sq m Kidney failure: <15 mL/min/1.73sq m eGFR calculated using average adult body mass. Additional eGFR calculator available at: http://www.LikeBetter.com/multiple_crcl_2012.htmPerformed By: #### BMP ####[employer]Nearbuyme TechnologiesMuhatwlyslyc[address]854 [place] [address] Lab Director: Savage Jacob MDAnion gap [Moles/Vol]18 mmol/LHigh9-17[facility] Comment on above:Performed By: #### BMP ####[facility] [address]ong[address] [place] [address] Lab Director: CASEY Barahonaalcium [Mass/Vol]8.2 mg/dLLow8.6-10.4A[facility] Fayette Medical CenterComment on above: Performed By: #### BMP ####[employer] Jjbgxszipdel[address]37 [place] [address] Lab Director: CASEY Barahonahloride [Moles/Vol]110 mmol/L Nyvc41-229IvrkuAdena Fayette Medical CenterComment on above:Performed By: #### BMP ####[facility] H[address]jc[address]gox[address] [place], [place] [phone] Director: Savage Jacob MDCO2 [Moles/Vol]17 mmol/QHtt86-38HduitAdena Fayette Medical CenterComment on above:Performed By: #### BMP ####[facility] Fctkflojsydt[address] [place], [place] [address])[phone] Director: Savage Jacob MD Creatinine [Mass/Vol]1.66 mg/dLHigh0.50-0.90[facility] Comment on above:Performed By: #### BMP ####[facility] Vlhvvmrltgri[address] [place], [place] [phone] Director: Savage Jacob MDGFR, Amer 37 mL/minLow>60[facility] Medical CenterComment on above:Performed By: #### BMP ####[facility] Gljvvllyjtfy[address] [place], [place] [address])[phone] Director: Savage Jacob MDGFR,non Amer31 mL/minLow>60[facility] Medical CenterComment on above:Performed By: #### BMP ####[facility] [address]oady[address]omvfk[address] [place], [place] [phone] Director: Savage Jacob MDGlucose [Mass/Vol]176 mg/lPAxge14-93[facility] Comment on above:Performed By: #### BMP ####[facility] Xccqblnnheba364[address] [place], [place] [phone] Director: Savage Jacob MDPotassium [Moles/Vol]4.5 mmol/LNormal3.7-5.3MKeck Hospital of USCComment on above:Performed By: #### BMP ####[facility] Uox[address]fpfataah[address] [place], [place] [phone] Director: ZANA Barahonaodium [Moles/Vol]145 mmol/L Jizj473-157LdnruAdena Fayette Medical CenterComment on above:Performed By: #### BMP ####[facility] Cpizfqpaeggn8957 [place] [address] Lab Director: Savage Jacob MDUrea nitrogen [Mass/Vol]41 mg/dLHigh8-23[facility] Medical CenterComment on above:Performed By: #### BMP ####[facility] Szrmeowxysyk64[address] [place], [place] [phone] Director: Savage Jacob MDBUN/CRE RatioNOT REPORTEDNormal9-20[facility] Comment on above:Performed By: #### BMP ####[facility] Ahndsemqajrc[address]61 [place] [address] Lab Director: ZANA Barahonataging:NOT REPORTEDNoalAdena Fayette Medical CenterComment on above:Performed By: #### BMP ####[facility] Qpimyhcvpwhy7156 [place] [address] Lab Director: Savage Jacob MD(cont.)[facility] HospitalComment on above:Result Comment: Average GFR for 70 or more years old: 75 mL/min/1.73sq m Chronic Kidney Disease: <60 mL/min/1.73sq m Kidney failure: <15 mL/min/1.73sq m eGFR calculated using average adult body mass. Additional eGFR calculator available at: http://www.[employer]/multiple_crcl_2012.htmPerformed By: #### DENIZ DAVIS #### [facility] [address] [place] [address] Baseball Pitcher: Savage Jacob MDAnion gap [Moles/Vol]16 mmol/LNormal9-17[facility] CenterComment on above:Performed By: #### DENIZ DAVIS #### [facility] [address] [place] [address] Baseball Pitcher: Savage Jacob MDCalcium [Mass/Vol]8.8 mg/dLNormal8.6-10.4[facility] Medical CenterComment on above:Performed By: #### DENIZ DAVIS #### [facility] [address] [place] [address] Baseball Pitcher: CASEY Barahonahloride [Moles/Vol]112 mmol/TVgxm80-481NiddzAdena Fayette Medical CenterComment on above:Performed By: #### DENIZ DAVIS #### [facility] [address] [place] [address] Baseball Pitcher: Savage Jacob MDCO2 [Moles/Vol]19 mmol/OLuy28-68AtiwqAdena Fayette Medical CenterComment on above:Performed By: #### DENIZ DAVIS #### [address] [address] Baseball Pitcher: CASEY Barahonareatinine [Mass/Vol]1.81 mg/dLHigh0.50-0.90 [facility] CenterComment on above:Performed By: #### DENIZ DAVIS #### [address] [address] Baseball Pitcher: Savage Jacob MDGFR, Amer34 mL/minLow>60[facility] Medical CenterComment on above:Performed By: #### MARY DAVISO #### [address] [address] Baseball Pitcher: Savage Jacob MDGFR,non Amer28 mL/minLow>60[facility] Medical CenterComment on above:Performed By: #### MAKAYLA DAVISICAO #### [address] [address] Baseball Pitcher: Savage Jacob MDGlucose [Mass/Vol]131 mg/sGZyal16-17EkvrjKeck Hospital of USCComment on above:Performed By: #### UA, UMICAO #### [facility] [address] [place] [address] Baseball Pitcher: HALEY Barahonaotassium [Moles/Vol]4.7 mmol/LNormal3.7-5.3 [facility] CenterComment on above:Performed By: #### UA, UMICAO #### [facility] [address] [place] [address] Baseball Pitcher: ZANA Barahonaodium [Moles/Vol]147 mmol/MVyxn854-717UvwrqAdena Fayette Medical CenterComment on above:Performed By: #### UA, UMICAO #### [facility] [address] [place] [address] Baseball Pitcher: Savage Jacob MDUrea nitrogen [Mass/Vol]31 mg/dLHigh8-23[facility] Medical CenterComment on above:Performed By: #### UA, UMICAO #### [facility] [address] [place] [address] Baseball Pitcher: FELICITY Barahona/SHALINI Ziegler REPORTEDNormal9-20[facility] Medical CenterComment on above:Performed By: #### UA, UMICAO #### [facility] [address] [place] [address] Baseball Pitcher: ZANA Barahonataging:NOT REPORTEDNormalAdena Fayette Medical CenterComment on above:Performed By: #### UA, UMICAO #### [facility] [address] [place] [address] Baseball Pitcher: Savage Jacob MDBl Gas,Mix-Rufino,Phil Campbell 54-43-3822VnCG0.6 %Normal 0-5.0A[facility] Medical CenterComment on above:Performed By: #### UA, UMICAO #### [facility] [address] [place] [address] Baseball Pitcher: Savage Jacob MDHemoglobin (Bld) [Mass/Vol]8.1 g/dLLow12.0-18.0 [facility] CenterComment on above:Performed By: #### SUSAN, UMICAO #### [facility] [address] [place] [address] Baseball Pitcher: ALISSA BarahonaetHb0.6 %Normal0.0-1.5[facility] Medical CenterComment on above:Performed By: #### SUSAN, UMICAO #### [facility] [address] [place] [address] Baseball Pitcher: Savage Jacob MDO2 Content7 vol %Normal6-15[facility] Medical CenterComment on above:Performed By: #### SUSAN UMICAO #### [address] [address] Baseball Pitcher: Savage Jacob MDOxygen saturation in Blood59.4 %Uws91-39YhgyhAdena Fayette Medical CenterComment on above:Performed By: #### SUSAN UMICAO #### [address] [address] Baseball Pitcher: Savage Jacob MDOxygen Enjhbi74%NormalAdena Fayette Medical CenterComment on above:Performed By: #### SUSAN UMICAO #### [address] [address] Baseball Pitcher: Savage Jacob [facility] BEAVERon 44-73-1611C741 mg/gYSfm82-754OdigoAdena Fayette Medical CenterComment on above:Performed By: #### C3, C4, IFX, ANASCX, PE ####[address] [address] Lab Director: CASEY Barahona[address] [place] [address] 71-54-7120Igootyyshk C348 mg/dLLow90 - 180 mg/dLMercy Health [facility], KYInterpretation and review of laboratory results AbnormalMercy Health [facility], KYC4on 04-58-8258I444 mg/tROihcyy96-90MwgmvAdena Fayette Medical CenterComment on above:Performed By: #### C3, C4, IFX, ANASCX, PE ####[facility] [address]crbkurcfrm5022 [place] [address] Lab Director: MACKENZIE Barahona COMPLEMENTon 45-96-3390Aihmorvrie C411 mg/dL10 - 40 mg/dLMercy Health [facility], KYCALCIUM, IONIC (POC)on 18-05-8210GNS Ionized Calcium 1.22 mmol/L1.15 - 1.33 mmol/LMMercy Health [facility], KYPOC Ionized Calcium1.27 mmol/L 1.15 - 1.33 mmol/[facility], KYCBCon 41-30-2158Oosjbmqssej distribution width (RBC) [Ratio]16.1 %High11.8-14.4A[facility] Medical CenterComment on above:Performed By: #### DENIZ DAVIS #### [facility]Near[facility] [address] [place] [address] Baseball Pitcher: Savage Jacob MDHematocrit (Bld) [Volume fraction]25.7 %Low 36.3-47.1MKeck Hospital of USCComment on above:Performed By: #### DENIZ DAVIS #### [employer] [address] [place] [address] Baseball Pitcher: Savage Jacob MDHemoglobin (Bld) [Mass/Vol]8.4 g/dLLow11.9-15.1 [facility] CenterComment on above:Performed By: #### SUSAN UMICAO #### [facility] [address] [place] [address] Baseball Pitcher: ALISSA BarahonaCH (RBC) [Entitic mass]28.8 vlNrsnad52.2-33.5 [facility] CenterComment on above:Performed By: #### SUSAN UMICAO #### [employer] [address] [place] [address] Baseball Pitcher: ALISSA BarahonaCHC (RBC) [Mass/Vol]32.7 g/yZEsiwfp62.4-34.8 [facility] CenterComment on above:Performed By: #### DENIZ DAVIS #### [facility] [employer] [address] [place] [address] Baseball Pitcher: ALISSA BarahonaCV (RBC) [Entitic vol]88.0 bCLtvsfh96.6-102.9 [facility] CenterComment on above:Performed By: #### DENIZ DAVIS #### [facility] [employer] [address] [place] [address] Baseball Pitcher: Savage Jacob MDNRBC Automated0.0 per 100 WBCNormal0.0A[facility] Medical CenterComment on above:Performed By: #### DENIZ DAVIS #### [facility] [employer] [address] [place] [address] Baseball Pitcher: Taylor Barahonatemartine mean volume (Bld) [Entitic vol]10.3 fL Normal8.1-13.5A[facility] Medical CenterComment on above:Performed By: #### DENIZ DAVIS #### [facility] [employer] [address] [place] [address] Baseball Pitcher: HAELY Barahonalatelets (Bld) [#/Vol]78 10*3/mYZgq055-447EeidxAdena Fayette Medical CenterComment on above:Performed By: #### MARY DAVISO #### [facility] [employer] [address] [place] [address] Baseball Pitcher: Savage Jacob MDRBC (Bld) [#/Vol]2.92 10*6/uLLow3.95-5.11A[facility] Medical CenterComment on above:Performed By: #### DENIZ DAVIS #### [facility] [address] [place], [place] [phone] Baseball Pitcher: Savage Jacob MDWBC (Bld) [#/Vol]9.7 10*3/uLNormal3.5-11.3[facility] Hospital Of San BernardinoComment on above:Performed By: #### UA, MARYO #### [employer] [address] [place], [place] [phone] Baseball Pitcher: Savage Jacob MDErythrocyte distribution width (RBC) [Ratio]16.1 %High11.8 - 14.4 %[facility]- [place], KYHematocrit (Bld) [Volume fraction]25.7 % Low36.3 - 47.1 %[facility]- [place], KYHemoglobin (Bld) [Mass/Vol]8.4 g/dLLow11.9 - 15.1 g/dLUniversity Hospitals Ahuja Medical Center- [place], KYInterpretation and review of laboratory results AbnormalUniversity Hospitals Ahuja Medical Center- [place], KYMCH (RBC) [Entitic mass]28.8 pg25.2 - 33.5 pgDayton Children'S Hospital [place], KYMCHC (RBC) [Mass/Vol]32.7 g/dL28.4 - 34.8 g/dLUniversity Hospitals Ahuja [facility] Center- [place], [place] MCV (RBC) [Entitic vol]88.0 fL82.6 - 102.9 fLUniversity Hospitals Ahuja Medical Center- [place], KYPlatelet mean volume (Bld) [Entitic vol]10.3 fL8.1 - 13.5 fLUniversity Hospitals Ahuja Medical Center- [place], KYPlatelets (Bld) [#/Vol]78 10*3/uLLowDayton Children'S Hospital [place], KYRBC (Bld) [#/Vol]2.92 10*6/uLLow 3.95 - 5.11 m/uLUniversity Hospitals [facility]huja [facility] Center- [place], KYWBC (Bld) [#/Vol]9.7 10*3/uLUniversity Hospitals Ahuja Medical Center- [place], KYWBC (Bld) [#/Vol]0.0 10*3/uL0.0 per 100 WBCUniversity Hospitals Ahuja Medical Center- [place], KYCHLORIDE (POC)on 39-30-1551QWI Mfwbysga214 mmol/LHigh98 - 107 mmol/LMercy Health- [place], [place] POC Idtclpwy306 mmol/LHigh98 - 107 mmol/LMercy Health- [place], KYCHLORIDE, URINE, RANDOMon 87-22-9201Usngiptm, Ur<20mmol/LMer[facility]- [place], KYCREATININE, RANDOM URINEon 22-35-1596Cmyilyrosm, Ur121.8 mg/dL28 - 217 mg/dLUniversity Hospitals Ahuja Medical Center- [place], [place] Chloride,Random Uron 31-02-5907Es Conc.<20NormalAdena Fayette Medical Center Comment on above:Result Comment: No normal range established.Performed By: #### UA, UMICAO #### [employer] [address] [place] [address] Baseball Pitcher: Janae Barahona W/GFR Point of Careon 76-50-9985ACL Vdxrcgq12 mL/minLow>60[facility] Centercy Health- [place], KYGFR CommentMercy Health- [place], KYGFR Non- Gmlycwhf79 mL/minLow>60[facility]- [place], [place] Creatinine1.78 mg/dL High0.51 - 1.19 mg/dLMercy Health- [place], [place] Gkbvbkn15 mL/minLow>60[facility] [place] CommentMercy Health- [place] Non- Uftbfbds75 mL/minLow>60 [facility]- [place], [place] Creatinine1.94 mg/dLHigh0.51 - 1.19 mg/dLDayton [facility] [place], [place]Creatinine,Random Uron [phone] [Mass/Vol]121.8 mg/dLNormal 28.0-217.0Adena Fayette Medical CenterComment on above:Performed By: #### UA, UMICAO #### [employer] [address] [place] [address] Baseball Pitcher: HILARY Barahona PANEL, ACUTEon 01-60-7185CZB IgM IA Qn (S)NONREACTIVENONREACTIVEWayne Hospital Health- [place], KYHep B Core Ab, IgMNONREACTIVE NONREACTIVEWayne Hospital Health- [place], KYHepatitis B Surface AgNONREACTIVENONREACTIVEMerShriners Hospitals for Children- [place], KYHepatitis C AbNONREACTIVENONREACTIVEMercy [facility], [place] Hemoglobin and hematocrit, bloodon 08-26-2066GZF Lwifecuesf81 %Low36 - 46 %[facility], KYPOC Hemoglobin7.2 g/dLLow12 - 16 g/dLMercy Health [facility], MNPOC Tzakodvccd47 %Low36 - 46 %[facility], KYPOC Hemoglobin7.7 g/dLLow12 - 16 g/dLMercy Health [facility], KYHepatitis Acute Roro 93-72-5997Oot A Ab,IgMNONREACTIVE NormalFisher-Titus Medical CenterComment on above:Performed By: #### DENIZ DAVIS #### [facility] [address] [place] [address] Baseball Pitcher: Keyana Barahona Core Ab,IgMNONREACTIVESheltering Arms HospitalComment on above:Performed By: #### MARY DAVISO #### [facility] [address] [place] [address] Baseball Pitcher: Keyana Barahona Surf AgNONREFayette County Memorial HospitalComment on above:Performed By: #### SUSAN UMICAO #### [facility] [address] [place] [address] Baseball Pitcher: Keyana Barahona AbNONWoodland Park HospitalComment on above:Result Comment: The hepatitis C procedure used in [...] is recommended by ordering HCV RNA by PCR.Performed By: #### SUSAN UMICAO #### [facility] [address] [place] [address] Baseball Pitcher: JUJU Barahona (Potassium)on 87-40-7135Srtqjjikx [Moles/Vol] 4.6 mmol/LNormal3.7-5.3[facility] Of San BernardinoComment on above: Performed By: #### DENIZ DAVIS #### [facility] [address] [place] [address] [id number] Baseball Pitcher: Savage Jacob MDLactic Acid, POCon 05-17-3152VOK Lactic Acid0.44 mmol/LLow0.56 - 1.39 mmol/LMMercy Health [facility], KYPOC Lactic Acid0.98 mmol/L0.56 - 1.39 mmol/LMMercy Health [facility], KYMAGNESIUMon 01-58-6872Doomfqtsx [Mass/Vol]2.0 mg/dL1.6 - 2.6 mg/dLMercy Health [facility], KYMagnesiumon 23-43-0128Fctmbyxfy [Mass/Vol]2.1 mg/dLNormal1.6-2.6Mer[facility] Of San BernardinoComment on above:Performed By: #### DENIZ DAVIS #### [facility] [address] [place] [address] Baseball Pitcher: Miles Barahonagnesium [Mass/Vol]2.1 mg/dL1.6 - 2.6 mg/dL [facility], KYMagnesium [Mass/Vol]2.0 mg/dLNormal1.6-2.6Mer[facility] Of San BernardinoComment on above:Performed By: #### SUSAN, DENIZ #### [facility] [address] [place] [address] [phone] Baseball Pitcher: Savage Jacob MDOtheron 48-04-6447Ronkexynhincvs and review of laboratory resultsAbWilson Memorial Hospital, KYInterpretation and review of laboratory resultsAbWilson Memorial Hospital, [facility] Glucose Fingerstickon 37-20-2549Scrioxorurkccl and review of laboratory resultsAbnoSumma Health W[facility], [facility] Hvxjksp196 mg/dYWtlz98 - 105 mg/dLMercy Health [facility], KYInterpretation and review of laboratory resultsAbnoSumma Health Wadsworth - [facility]itt[facility], MNPO Biufkxk443 mg/dL High65 - 105 mg/dLMercy Health [facility], KYInterpretation and review of laboratory resultsAbnormHolzer Hospital, MNPOC Dlzxber872 mg/cRGznr68 - 105 mg/dLMercy Health [facility], KYInterpretation and review of laboratory resultsAbnoSumma Health Wad[facility], KYPOC Elpgqih924 mg/hELxyk75 - 105 mg/dLMercy Health [facility], KYPOCT Glucoseon 66-28-2895LGS Nfrgwar367 mg/fDToom73 - 100 mg/dLMercy Health [facility], [place] POC Ctwkicl192 mg/sMQllv22 - 100 mg/dLMercy Health [facility], KYPOTASSIUMon 07-05-2019 Potassium [Moles/Vol]4.6 mmol/L3.7 - 5.3 mmol/[facility], KYPOTASSIUM (POC)on 83-75-8459UCS Potassium4.5 mmol/L3.5 - 4.5 mmol/LMMercy Health [facility], MNPOC Potassium4.5 mmol/L3.5 - 4.5 mmol/[facility], KYPOTASSIUM, URINE, RANDOM on 96-11-1661Dbxwhnaal, Ur>150.0mmol/[facility], KYPREPARE PLATELETS, 1 Producton 82-85-9876Jhvau product type Nom (BPU)LkIrPlt PASMercy Health [facility], [place] Dispense StatusTRANSFUSEDMMercy Health [facility], KYTransfusion StatusOK TO TRANSFUSE [facility], MNUnit Wkwzdrx6XckmkMercy Health [facility], MNUnit [id number] [facility], KYPTon 50-63-5615BPT Coag (PPP) [Relative time]1.1 {INR}Normal Ad[facility] Fayette Medical CenterComment on above:Result Comment: Therapeutic Range: Moderate Anticoagulant Intensity: INR = 2.0-3.0 High Anticoagulant Intensity: INR = 2.5-3.5Performed By: #### DENIZ DAVIS #### [employer] [address] [place] [address] Baseball Pitcher: Savage Madoff, MDPT Coag (PPP) [Time]11.8 sNormal9.0-12.0Adena Fayette Medical CenterComment on above:Performed By: #### MAKAYLA DAVISICAElena #### [facility] [address] [place] [address] Baseball Pitcher: Ham Barahonaium,Random Uron 07-05-2019K Conc.>150.0 NormalAdena Fayette Medical CenterComment on above:Result Comment: No normal range established.Performed By: #### SUSAN, UMICAElena #### [facility] [address] [place] [address] Baseball Pitcher: MDProt. Brooklyn Electroph, Blon 52-84-0554Filrvfs [Mass/Vol]4.7 g/dLLow6.4-8.3MKeck Hospital of USCComment on above: Performed By: #### C3, C4, IFX, ANASCX, PE ####[facility] [address] [place] [address] Lab Director: MDProt. Brooklyn Electroph, Uron 14-51-4047Hzuaxpg [Mass/Vol]37 mg/dLNormUniversity Hospitals TriPoint [facility] Comment on above:Performed By: #### SUSAN, UMICAO #### [facility] [address] [place] [address] Baseball Pitcher: Savage Jacob MDType of Specimen.URINENormalAdena Fayette Medical CenterComment on above:Performed By: #### SUSAN, UMICAO #### [facility] [address] [place] [address] Baseball Pitcher: Christo Barahona-INRon 86-03-8563OCU Coag (PPP) [Relative time]1.1 {INR}[facility]- [place], KYPT Coag (PPP) [Time]11.8 sMUniversity Hospitals Geneva [facility]- [place], KYSODIUM (POC)on 66-48-5047ADX Zltcsu893 mmol/XFdnh407 - 146 mmol/LMercy Health- [place], KYPOC Xhubaw254 mmol/L138 - 146 mmol/LMercy [facility]- [place], KYSODIUM, URINE, RANDOMon 17-53-7414Fuoasm,Ur<20mmol/LMercy Health- [place], KYSodium, Random Uron 44-22-6666Mu Conc. Urine<20NormalMercy Community Hospital Of San BernardinoComment on above:Result Comment: No normal range established.Performed By: #### UA, UMICAO #### [facility] [address] [place] [address] Baseball Pitcher: Savage Jacob, MDSurgical Pathologyon 28-86-3213Qeenfscq Pathology ReportMercy Health- [place], KYURINALYSIS WITH MICROSCOPICon 07-05-2019 Amorphous, UANOT REPORTEDNoneMercy Health- [place], KYBacteria, UANOT REPORTEDNone [facility]- [place], KYBilirubin UrineNegativeNEGATIVEMercy Health- [place], KYCasts UA HYALINEMercy Health- [place], KYCasts UA10 TO 20[facility]- [place], KYColor, UAYELLOW YELLOWMercy Health- [place], KYCrystals, UANOT REPORTEDNone /HPFMercy Health- [place], [place] Epithelial Cells UA2 TO 5[facility]- [place], KYGlucose, UrNegativeNEGATIVEMercy Health- [place], KYInterpretation and review of laboratory resultsAbnormalMercy Health- [place], KYKetones Ql (U)MODERATEAbnormalNEGATIVEMercy Health- [place], [place] Leukocyte esterase Test strip Ql (U)NegativeNEGATIVEMercy Health- [place], KYMucus, UANOT REPORTEDNoneMercy Health- [place], KYNitrite, UrineNegativeNEGATIVEMercy Health- [place], KYOther Observations UANOT REPORTEDNOT REQ.[facility]- [place], KYpH, UA5.0[facility]- [place], KYProtein, UA1+AbnormalNEGATIVEMercy Health- [place], KYRBC (U) [#/Vol]2 TO 5[facility]- [place], KYRenal Epithelial, UANOT REPORTED0 /HPFMercy Health- [place], KYSpecific [place], UA1.035HighMercy Health- [place], KYTrichomonas, UA NOT REPORTEDNoneMercy Health- [place], KYTurbidity UACLEARCLEARMer[facility] Health [facility], [place] Urine HgbNegativeNEGATIVEMer[facility], KYUrobilinogen, UrineNormalNormal [facility], KYWBC, UA2 TO 5[facility], KYYeast, UANOT REPORTEDNone [facility], KYUS RENAL COMPLETEon 16-07-8261GA RENAL COMPLETEEXAMINATION: RETROPERITONEAL ULTRASOUND OF THE KIDNEYS AND URINARY [...] examination. Urinary bladder is collapsed as a Dietz catheter is present. IMPRESSION: 1. Equivocal duplicated right-sided renal collecting system. Prominent right renal pelvis. No overt hydronephrosis. 2. Exam limited due to bowel gas. 3. Patient had no urge to void during the exam. 4. Collapsed urinary bladder with Dietz catheter present. Interpreted by: Enzo Plascencia MD Signed by: Enzo Plascencia MD 07/05/19 Final resultNormalMarymount Hospital, [facility], [facility], KYUrinalysis w/ Microon 00-76-6216Odgku LM.LPF (Urine sed) [#/Area]HYALINENormal0-2Mer[facility] Of San BernardinoComment on above:Result Comment: TO Performed By: #### UA, UMICAO #### [employer] [address] [place] [address] Baseball Pitcher: Savage Jacob MDEpithelial cells LM.HPF (Urine sed) [#/Area]2 TO 6Eaylky2-9Zzzys Community Hospital Of San BernardinoComment on above:Performed By: #### SUSAN, UMICAO #### [facility] [address] [place] [address] Baseball Pitcher: ISABELLE BarahonaBC (U) [#/Vol]2 TO 5Ibirue1-3Nhywr [facility] Hospital Of San BernardinoComment on above:Performed By: #### SUSAN, UMICAO #### [facility] [address] [place] [address] Baseball Pitcher: Savage Jacob MDWBC (U) [#/Vol]2 TO 9Svyfxq8-0NtkvaProvidence Tarzana Medical CenterComment on above:Performed By: #### SUSAN, UMICAO #### [facility] [address] [place] [address] Baseball Pitcher: Savage Jacob MD-----NormalAdena Fayette Medical Center Comment on above:Performed By: #### SUSAN, UMICAO #### [facility] [address] [place] [address] Baseball Pitcher: Savage Jacob MDAcetoacetic Acid,UrMODERATEAbnormalNEGAdena Fayette Medical CenterComment on above:Performed By: #### SUSAN, UMICAO #### [facility] [address] [place] [address] Baseball Pitcher: Savage Jacob MDBilirubin, SemiQt,UrNegativeNormalNEGAdena Fayette Medical CenterComment on above:Performed By: #### SUSAN, UMICAO #### [facility] [address] [place] [address] Baseball Pitcher: CASEY Barahonaolor (U)YELLOWNormalYELMerProvidence Tarzana Medical CenterComment on above:Performed By: #### SUSAN UMICAO #### [facility] [address] [place] [address] Baseball Pitcher: Savage Jacob MDGlucose Ql (U)NegativeNormalNEGAdena Fayette Medical CenterComment on above:Performed By: #### SUSAN UMICAO #### [facility] [address] [place] [address] Baseball Pitcher: Savage Jacob MDHemoglobin, UrNegativeNormalNEGMerProvidence Tarzana Medical CenterComment on above:Performed By: #### SUSAN UMICAO #### [facility] [address] [place] [address] Baseball Pitcher: Savage Jacob MDLeukocyte esterase Test strip Ql (U)Negative NormalNEGAdena Fayette Medical CenterComment on above:Performed By: #### DENIZ DAVIS #### [address] [address] Baseball Pitcher: Savage Jacob MDNitrite,UrNegativeNormalNEGAdena Fayette Medical CenterComment on above:Performed By: #### SUSAN UMICAO #### [facility] [address] [place] [address] Baseball Pitcher: Haley BarahonaH (U)5.0 [pH]Normal5.0-8.0MerProvidence Tarzana Medical CenterComment on above:Performed By: #### SUSAN UMICAO #### [facility] [address] [place] [address] Baseball Pitcher: HALEY Barahonarotein Ql (U)1+AbnormalNEGMerProvidence Tarzana Medical CenterComment on above:Performed By: #### SUSAN UMICAO #### [facility] [address] [place] [address] Baseball Pitcher: ZANA Barahonapecific gravity (U) [Rel density]1.035High 1.005-1.030MerProvidence Tarzana Medical CenterComment on above:Performed By: #### UA, UMICAO #### [facility] [address] [place] [address] Baseball Pitcher: PRATIK BarahonaurbidityCLEARNormalCLEARAdena Fayette Medical CenterComment on above:Performed By: #### UA, UMICAO #### [facility] [address] [place] [address] Baseball Pitcher: Daniella Barahonabilinogen,UrNormalNormalOhioHealth Shelby HospitalComment on above:Performed By: #### UA, UMICAO #### [facility] [address] [place] [address] Baseball Pitcher: Ines Barahona sediment LM Ql (Urine sed)NOT REPORTED NormalSalem City HospitalComment on above:Performed By: #### UA, UMICAO #### [facility] [address] [place] [address] Baseball Pitcher: Karen Barahona LM.HPF (Urine sed) [#/Area]NOT REPORTED NormalSalem City HospitalComment on above:Performed By: #### UA, UMICAO #### [facility] [address] [place] [address] Baseball Pitcher: Harish Barahona LM Nom (Urine sed)NOT REPORTEDNormal NONEMerProvidence Tarzana Medical CenterComment on above:Performed By: #### UA, UMICAO #### [facility] [address] [place] [address] Baseball Pitcher: Savage Jacob MDEpithelial, RenalNOT DMRSDCEVItqrxp7UjaykAdena Fayette Medical CenterComment on above:Performed By: #### UA, UMICAO #### [facility] [address] [place] [address] Baseball Pitcher: Gianna Barahonaus StrandsNOT REPORTEDNormalNONEMeCottage Children's HospitalComment on above:Performed By: #### UA, UMICAO #### [facility] [address] [place] [address] Baseball Pitcher: Savage Jacob MDOther ObservationsNOT REPORTEDNormalNREQAdena Fayette Medical CenterComment on above:Performed By: #### UA, UMICAO #### [facility] [address] [place] [address] Baseball Pitcher: Savage Jacob MDTrichomonasNOT REPORTEDNormalNONEMeCottage Children's HospitalComment on above:Performed By: #### UA, UMICAO #### [facility] [address] [place] [address] Baseball Pitcher: Azra Barahonaast LM Ql (Urine sed)NOT REPORTEDNormalNONE [facility] Medical CenterComment on above:Performed By: #### UA, UMICAO #### [facility] [address] [place] [address] Baseball Pitcher: HWITNEY Barahona CHEST PORTABLEon 81-11-3790ZP CHEST PORTABLE EXAMINATION: ONE XRAY VIEW OF [...] tube in stable position. There is a [place] catheter. There is a right-sided subclavian line in stable position. IMPRESSION: Mild pulmonary congestion with stable support tubes. Interpreted by: Lm Clemente MD Signed by: Lm Clemente MD 07/05/19 Final resultNoUniversity Hospitals [facility]aut [facility], KYMer[facility]- [place], KYMer[facility]- [place], KYAnion Gap (Calc) POCon 67-10-4840Ifvek gap [Moles/Vol]11 mmol/L7 - 16 mmol/LMercy Health- [place], KYAnion gap [Moles/Vol]11 mmol/L7 - 16 mmol/LMercy [facility]- [place], KYAnion gap [Moles/Vol]15 mmol/L7 - 16 mmol/LMer[facility]- [place], KYArterial Blood Gas, POCon 86-59-1379Paqwt TestNOT REPORTEDMercy Health- [place], JCCBI720.0[facility]- [place], KYModeSIMV(PRVC)+ PSMercy Health- [place], KYNegative Base Excess, ArtNOT REPORTEDMercy Health- [place], MNO2 Device/Flow/%Adult VentilatorMer Health- [place], [facility] OAZ265.5 mmol/L21 - 28 mmol/LMercy Health- [place], MNPO O2 SAT93 %Low94 - 98 %[facility]- [place], MNPO pCO2 38.7[facility]- [place], [facility] pCO2 TempNOT REPORTEDmm HgMercy Health- [place], [facility] pH 7.459HighMer Health- [place], [facility] pH TempNOT REPORTEDMercy Health- [place], MNPO PO2 64.1LowMer Health- [place], [facility] pO2 TempNOT REPORTEDmm HgMer Health- [place], [place] Positive Base Excess, Vyl0Kwgma Health- [place], KYPt TempNOT REPORTEDMer Health- [place], MNSample SiteArterial LineMer Health- [place], MNTCO2 (calc), Art29 mmol/L22 - 29 mmol/LMercy [facility]- [place], KYAllen TestNOT APPLICABLEMer Health- [place], KYFIO2 40.0[facility]- [place], MNModePRVCMercy Health- [place], KYNegative Base Excess, ArtNOT REPORTEDMer[facility]- [place], MNO2 Device/Flow/%Adult VentilatorMer Health- [place], MNPOC SCX464.9 mmol/L21 - 28 mmol/LMer[facility]- [place], MNPO O2 SAT99 %High94 - 98 %[facility]- [place], MNPO nCW037.7[facility]- [place], MNPO pCO2 TempNOT REPORTED mm HgMercy Health- [place], [facility] pH7.417Mer [facility]- [place], MNPO pH TempNOT REPORTED [facility]- [place], [facility] NP9182.4HighMer Health- [place], [facility] pO2 TempNOT REPORTED mm HgMer Health- [place], MNPositive Base Excess, Bmd4Ioptm Health- [place], KYPt Temp NOT REPORTEDWayne [facility]- [place], [facility] Delanole SiteArterial LineWayne Hospital Health- [place], MNTCO2 (calc), Art28 mmol/L22 - 29 mmol/LM[facility]- [place], MNAllen TestNOT APPLICABLE [facility]- [place], AHEUV595.0[facility]- [place], MNModePRVCMercy Health- [place], [place] Negative Base Excess, ArtNOT REPORTEDWayne [facility]- [place], MNO2 Device/Flow/%Adult VentilatorWayne Hospital Health- [place], [facility] YPU197.9 mmol/L21 - 28 mmol/LMercy [facility]- [place], [facility] O2 JXW912 %High94 - 98 %[facility]- [place], [facility] vBL692.5[facility]- [place], [facility] pCO2 TempNOT REPORTEDmm HgMer Health- [place], [facility] pH7.408[facility]- [place], [facility] pH TempNOT REPORTEDWay[facility]- [place], [facility] MI7311.2HighWayne Hospital Health- [place], [facility] pO2 TempNOT REPORTEDmm HgWayne Hospital [facility]- [place], MNPositive Base Excess, Art 0[facility]- [place], KYPt TempNOT REPORTEDWay[facility]- [place], [facility] SiteArterial LineWayne Hospital Health- [place], MNTCO2 (calc), Art26 mmol/L22 - 29 mmol/LMercy [facility]- [place], [facility] METABOLIC PANELon 50-39-9284Ajdip gap [Moles/Vol]12 mmol/L9 - 17 mmol/L [facility]- [place], KYBun/Cre RatioNOT REPORTEDMercy Health- [place], MNCalcium [Mass/Vol]9.4 mg/dL8.6 - 10.4 mg/dLWayne Hospital Health- [place], KYChloride [Moles/Vol]114 mmol/LHigh98 - 107 mmol/LMer[facility]- [place], KYCO2 [Moles/Vol]23 mmol/L20 - 31 mmol/LMer[facility]- [place], KYCreatinine [Mass/Vol]1.56 mg/dLHigh0.5 - 0.9 mg/dL [facility] [place], KYGFR Lgshmfdi58 mL/minLow>60[facility]- [place], KYGFR CommentMer Health- [place], KYGFR Non- Turfkeny97 mL/minLow>60[facility]- [place], KYGFR StagingNOT REPORTEDMercy [facility]- [place], KYGlucose [Mass/Vol]114 mg/dLHigh 70 - 99 mg/dLMer Health- [place], KYInterpretation and review of laboratory results AbnormalMercy Health- [place], KYPotassium [Moles/Vol]3.8 mmol/L3.7 - 5.3 mmol/LM[facility]- [place], KYSodium [Moles/Vol]149 mmol/FCort655 - 144 mmol/LMer[facility]- [place], KYUrea nitrogen [Mass/Vol]26 mg/dLHigh8 - 23 mg/dLAdena Fayette Medical Centercy Health- [place], KYAnion gap [Moles/Vol]13 mmol/L9 - 17 mmol/LMer[facility]- [place], KYBun/Cre RatioNOT REPORTED [facility]- [place], KYCalcium [Mass/Vol]8.6 mg/dL8.6 - 10.4 mg/dLMercy Health- [place], KYChloride [Moles/Vol]115 mmol/LHigh98 - 107 mmol/LMer[facility]- [place], KYCO2 [Moles/Vol]23 mmol/L20 - 31 mmol/LMer[facility]- [place], KYCreatinine [Mass/Vol]1.53 mg/dLHigh0.5 - 0.9 mg/dLMercy Health- [place], KYGFR Sbbyllhm35 mL/minLow>60 [facility] [place], KYGFR CommentMercy Health- [place], KYGFR Non- Ekwqwcys68 mL/minLow>60[facility]- [place], KYGFR StagingNOT REPORTEDMer Health- [place], [place] Glucose [Mass/Vol]111 mg/rFFmmk73 - 99 mg/dLWayne Hospital Health- [place], KYInterpretation and review of laboratory resultsAbnormalMercy Health- [place], KYPotassium [Moles/Vol]4.0 mmol/L3.7 - 5.3 mmol/LM[facility]- [place], KYSodium [Moles/Vol]151 mmol/GFamr077 - 144 mmol/LMDoctors Hospital [place], KYUrea nitrogen [Mass/Vol]25 mg/dL High8 - 23 mg/dLMer[facility] Health [facility], [facility] Metabolic Panelon 07-45-3839Bgrug gap [Moles/Vol]15 mmol/L9 - 17 mmol/LMUniversity [facility]- [place], KYBun/Cre RatioNOT REPORTED [facility], KYCalcium [Mass/Vol]9.0 mg/dL8.6 - 10.4 mg/dLMercy Health [facility], KYChloride [Moles/Vol]114 mmol/LHigh98 - 107 mmol/LMDoctors Hospital [place], KYCO2 [Moles/Vol]23 mmol/L20 - 31 mmol/[facility] [place], KYCreatinine [Mass/Vol]1.39 mg/dLHigh0.5 - 0.9 mg/dLMercy Health [facility], KYGFR Vmdgvubg09 mL/minLow>60 [facility], KYGFR CommentMercy Health [facility], KYGFR Non- Wklynozp70 mL/minLow>60[facility], KYGFR StagingNOT REPORTEDMercy Health [facility], [place] Glucose [Mass/Vol]148 mg/wLKgqn31 - 99 mg/dLMercy Health [facility], KYInterpretation and review of laboratory resultsAbnormalMercy Health [facility], KYPotassium [Moles/Vol]4.5 mmol/L3.7 - 5.3 mmol/[facility] [place], KYSodium [Moles/Vol]152 mmol/WQozv841 - 144 mmol/[facility], KYUrea nitrogen [Mass/Vol]21 mg/dL8 - 23 mg/dLMercy Health Kings [facility], KYBauofl health - [facility] Metabolic Profon 32-15-3745Nhlbzyujj [Moles/Vol]3.8 mmol/LNormal3.7-5.3MKeck Hospital of USCComment on above:Performed By: #### PT, PTT #### [employer] [address] [place], [place] [id number] Baseball Pitcher: Savage Jacob MD(cont.)[facility] Comment on above:Result Comment: Average GFR for 70 or more years old: 75 mL/min/1.73sq m Chronic Kidney Disease: <60 mL/min/1.73sq m Kidney failure: <15 mL/min/1.73sq m eGFR calculated using average adult body mass. Additional eGFR calculator available at: http://www.[employer]/multiple_crcl_2012.htmPerformed By: #### PT, PTT #### [facility] [address] [place] [address] Baseball Pitcher: Savage Jacob MDAnion gap [Moles/Vol]12 mmol/LNormal9-17A[facility]ayette Medical CenterComment on above:Performed By: #### PT, PTT #### [facility] [address] [place] [address] Baseball Pitcher: Savage Jacob MDCalcium [Mass/Vol]9.4 mg/dLNormal8.6-10.4A[facility] Medical CenterComment on above:Performed By: #### PT, PTT #### [facility] [address] [place] [address] Baseball Pitcher: Savage Jacob MDChloride [Moles/Vol]114 mmol/VPjkr91-946IknwcAdena Fayette Medical CenterComment on above:Performed By: #### PT, PTT #### [facility] [address] [place] [address] Baseball Pitcher: Savage Jacob MDCO2 [Moles/Vol]23 mmol/JAtjigb96-78GijqcAdena Fayette Medical CenterComment on above:Performed By: #### PT, PTT #### [facility] [address] [place] [address] Baseball Pitcher: Savage Jacob MDCreatinine [Mass/Vol]1.56 mg/dLHigh0.50-0.90 [facility] CenterComment on above:Performed By: #### PT, PTT #### [facility] [address] [place] [address] Baseball Pitcher: Savage Jacob MDGFR, Amer40 mL/minLow>60A[facility] Medical CenterComment on above:Performed By: #### PT, PTT #### [facility] [address] [place] [address] Baseball Pitcher: Savage Jacob MDGFR,non Amer33 mL/minLow>60A[facility] Medical CenterComment on above:Performed By: #### PT, PTT #### [facility] [address] [place] [address] Baseball Pitcher: Savage Jacob MDGlucose [Mass/Vol]114 mg/cNOslb82-06Lwfaa Community Hospital Of San BernardinoComment on above:Performed By: #### PT, PTT #### [facility] [address] [place] [address] Baseball Pitcher: ZANA Barahonaodium [Moles/Vol]149 mmol/CEnhw549-055VcetfAdena Fayette Medical CenterComment on above:Performed By: #### PT, PTT #### [facility] [address] [place] [address] Baseball Pitcher: Savage Jacob MDUrea nitrogen [Mass/Vol]26 mg/dLHigh8-23A[facility]ayette Medical CenterComment on above:Performed By: #### PT, PTT #### [facility] [address] [place] [address] [id number] Baseball Pitcher: Savage Jacob MDBUN/CRE RatioNOT REPORTEDNormal9-20[facility]ayette Medical CenterComment on above:Performed By: #### PT, PTT #### [facility] [address] [place] [address]807 Baseball Pitcher: ZANA Barahonataging:NOT REPORTEDNormalMerProvidence Tarzana Medical CenterComment on above:Performed By: #### PT, PTT #### [facility] [address] [place] [address] Baseball Pitcher: Savage Jacob MD(cont.)[facility] Comment on above:Result Comment: Average GFR for 70 or more years old: 75 mL/min/1.73sq m Chronic Kidney Disease: <60 mL/min/1.73sq m Kidney failure: <15 mL/min/1.73sq m eGFR calculated using average adult body mass. Additional eGFR calculator available at: http://www.LikeBetter.com/multiple_crcl_2012.htmPerformed By: #### PT, PTT #### [facility] [address] [place] [address] Baseball Pitcher: Savage Jacob MDAnion gap [Moles/Vol]13 mmol/LNormal9-17[facility] CenterComment on above:Performed By: #### PT, PTT #### [facility] [address] [place] [address] 08337 Baseball Pitcher: Savage Jacob MDCalcium [Mass/Vol]8.6 mg/dLNormal8.6-10.4[facility] CenterComment on above:Performed By: #### PT, PTT #### [facility] [address] [place] [address]013 Baseball Pitcher: Savage Jacob MDChloride [Moles/Vol]115 mmol/OCcbt42-830TbjrrAdena Fayette Medical CenterComment on above:Performed By: #### PT, PTT #### [facility] [address] [place] [address] Baseball Pitcher: Savage Jacob MDCO2 [Moles/Vol]23 mmol/NZupxlq90-22MkbyoAdena Fayette Medical CenterComment on above:Performed By: #### PT, PTT #### [facility] [address] [place] [address] Baseball Pitcher: Savage Jacob MDCreatinine [Mass/Vol]1.53 mg/dLHigh0.50-0.90 [facility] CenterComment on above:Performed By: #### PT, PTT #### [facility] [address] [place] [address] 28801 Baseball Pitcher: Savage Jacob MDGFR, Amer41 mL/minLow>60[facility] CenterComment on above:Performed By: #### PT, PTT #### [facility] [address] [place] [address] 88749 Baseball Pitcher: Savage Jacob MDGFR,non Amer34 mL/minLow>60[facility] CenterComment on above:Performed By: #### PT, PTT #### [facility] [address] [place] [address]157 Baseball Pitcher: Savage Jacob MDGlucose [Mass/Vol]111 mg/tWVzly76-54ZffrhKeck Hospital of USCComment on above:Performed By: #### PT, PTT #### [facility] [address] [place] [address] 83790 Baseball Pitcher: HALEY Barahonaotassium [Moles/Vol]4.0 mmol/LNormal3.7-5.3 [facility] CenterComment on above:Performed By: #### PT, PTT #### [facility] [address] [place] [address]21 Baseball Pitcher: Savage Jacob MDSodium [Moles/Vol]151 mmol/HCbpd535-465WalhqAdena Fayette Medical CenterComment on above:Performed By: #### PT, PTT #### [facility] [address] [place] [address] 80090 Baseball Pitcher: Savage Jacob MDUrea nitrogen [Mass/Vol]25 mg/dLHigh8-23[facility] CenterComment on above:Performed By: #### PT, PTT #### [facility] [address] [place] [address] 72950 Baseball Pitcher: Savage Jacob MDBUN/CRE RatioNOT REPORTEDNormal9-20[facility] CenterComment on above:Performed By: #### PT, PTT #### [facility] [address] [place] [address] 59516 Baseball Pitcher: ZANA Barahonataging:NOT REPORTEDNormalAdena Fayette Medical CenterComment on above:Performed By: #### PT, PTT #### [facility] [address] [place] [address] 0[address]38 Baseball Pitcher: Savage Jacob MD(cont.)[facility] Comment on above:Result Comment: Average GFR for 70 or more years old: 75 mL/min/1.73sq m Chronic Kidney Disease: <60 mL/min/1.73sq m Kidney failure: <15 mL/min/1.73sq m eGFR calculated using average adult body mass. Additional eGFR calculator available at: http://www.LikeBetter.com/multiple_crcl_2012.htmPerformed By: #### CDP, PFA, CP, GLYHGB #### [facility] [address] [place] [address] 20371 Baseball Pitcher: Savage Jacob MDAnion gap [Moles/Vol]15 mmol/LNormal9-17[facility] Medical CenterComment on above:Performed By: #### CDP, PFA, CP, GLYHGB #### [facility] [address] [place] [address]251 Baseball Pitcher: Savage Jacob MDCalcium [Mass/Vol]9.0 mg/dLNormal8.6-10.4[facility] Medical CenterComment on above:Performed By: #### CDP, PFA, CP, GLYHGB #### [facility] [address] [place] [address]648 Baseball Pitcher: Savage Jacob MDChloride [Moles/Vol]114 mmol/NHnzi65-519EeubvAdena Fayette Medical CenterComment on above:Performed By: #### CDP, PFA, CP, GLYHGB #### [address] [address] Baseball Pitcher: Savage Jacob MDCO2 [Moles/Vol]23 mmol/KGsrvny90-18ZygmlAdena Fayette Medical CenterComment on above:Performed By: #### CDP, PFA, CP, GLYHGB #### [place] [address] Baseball Pitcher: CASEY Barahonareatinine [Mass/Vol]1.39 mg/dLHigh0.50-0.90 [facility] CenterComment on above:Performed By: #### CDP, PFA, CP, GLYHGB #### [place] [address] Baseball Pitcher: Savage Jacob MDGFR, Amer45 mL/minLow>60[facility] Medical CenterComment on above:Performed By: #### CDP, PFA, CP, GLYHGB #### [place] [address] Baseball Pitcher: Savage Jacob MDGFR,non Amer37 mL/minLow>60[facility] Medical CenterComment on above:Performed By: #### CDP, PFA, CP, GLYHGB #### [address] [address] Baseball Pitcher: Savage Jacob MDGlucose [Mass/Vol]148 mg/fFFcsc88-99IzgwxKeck Hospital of USCComment on above:Performed By: #### CDP, PFA, CP, GLYHGB #### [address] [address] Baseball Pitcher: Savage Jacob MDPotassium [Moles/Vol]4.5 mmol/LNormal3.7-5.3 [facility] CenterComment on above:Performed By: #### CDP, PFA, CP, GLYHGB #### [facility] [address] [place] [address] Baseball Pitcher: ZANA Barahonaodium [Moles/Vol]152 mmol/HXkyd920-718RwzjqAdena Fayette Medical CenterComment on above:Performed By: #### CDP, PFA, CP, GLYHGB #### [facility] [address] [place] [address] Baseball Pitcher: Savage Jacob MDUrea nitrogen [Mass/Vol]21 mg/dLNormal8-23A[facility] Medical CenterComment on above:Performed By: #### CDP, PFA, CP, GLYHGB #### [facility] [address] [place] [address] Baseball Pitcher: FELICITY Barahona/CRE Toney REPORTEDNormal9-20[facility] Medical CenterComment on above:Performed By: #### CDP, PFA, CP, GLYHGB #### [facility] [address] [place] [address] 20115 Baseball Pitcher: ZANA Barahonataging:NOT REPORTEDNormalAdena Fayette Medical CenterComment on above:Performed By: #### CDP, PFA, CP, GLYHGB #### [facility] [address] [place] [address]159 Baseball Pitcher: Savage Jacob MD(cont.)[facility] Comment on above:Result Comment: Average GFR for 70 or more years old: 75 mL/min/1.73sq m Chronic Kidney Disease: <60 mL/min/1.73sq m Kidney failure: <15 mL/min/1.73sq m eGFR calculated using average adult body mass. Additional eGFR calculator available at: http://www.[employer]/multiple_crcl_2012.htmPerformed By: #### CDP, PFA, CP, GLYHGB #### [facility] [address] [place] [address] 34562 Baseball Pitcher: Savage Jacob MDAnion gap [Moles/Vol]21 mmol/LHigh9-17[facility] Medical CenterComment on above:Performed By: #### CDP, PFA, CP, GLYHGB #### [address] [address] Baseball Pitcher: Savage Jacob MDCalcium [Mass/Vol]9.3 mg/dLNormal8.6-10.4[facility] Medical CenterComment on above:Performed By: #### CDP, PFA, CP, GLYHGB #### [address] [address] Baseball Pitcher: Savage Jacob MDChloride [Moles/Vol]113 mmol/FUdac98-200HreuaAdena Fayette Medical CenterComment on above:Performed By: #### CDP, PFA, CP, GLYHGB #### [address] [address] Baseball Pitcher: Savage Jacob MDCO2 [Moles/Vol]19 mmol/PZzh01-68WnboeAdena Fayette Medical CenterComment on above:Performed By: #### CDP, PFA, CP, GLYHGB #### [address] [address] Baseball Pitcher: CASEY Barahonareatinine [Mass/Vol]1.35 mg/dLHigh0.50-0.90 [facility] CenterComment on above:Performed By: #### CDP, PFA, CP, GLYHGB #### [facility] [address] [place] [address]161 Baseball Pitcher: ASLLY Barahona,John Amer47 mL/minLow>60[facility] Medical CenterComment on above:Performed By: #### CDP, PFA, CP, GLYHGB #### [facility] [address] [place] [address] 23380 Baseball Pitcher: Savage Jacob MDGFR,non Amer39 mL/minLow>60[facility] CenterComment on above:Performed By: #### CDP, PFA, CP, GLYHGB #### [facility] [address] [place] [address] 44672 Baseball Pitcher: Savage Jacob MDGlucose [Mass/Vol]178 mg/xJUopj57-36LjkbiKeck Hospital of USCComment on above:Performed By: #### CDP, PFA, CP, GLYHGB #### [facility] [address] [place] [address]15 Baseball Pitcher: HALEY Barahonaotassium [Moles/Vol]3.9 mmol/LNormal3.7-5.3 [facility] CenterComment on above:Performed By: #### CDP, PFA, CP, GLYHGB #### [facility] [address] [place] [address] 95911 Baseball Pitcher: ZANA Barahonaodium [Moles/Vol]153 mmol/DHzls462-791JilceAdena Fayette Medical CenterComment on above:Performed By: #### CDP, PFA, CP, GLYHGB #### [facility] [address] [place] [address] 38825 Baseball Pitcher: Savage Jacob MDUrea nitrogen [Mass/Vol]18 mg/dLNormal8-23[facility] CenterComment on above:Performed By: #### CDP, PFA, CP, GLYHGB #### [facility] [address] [place] [address] 60250 Baseball Pitcher: FELICITY Barahona/CRE RatioNOT REPORTEDNormal9-20[facility] CenterComment on above:Performed By: #### CDP, PFA, CP, GLYHGB #### [facility] [address] [place] [address] 52935 Baseball Pitcher: ZANA Barahonataging:NOT REPORTEDNormalAdena Fayette Medical CenterComment on above:Performed By: #### CDP, PFA, CP, GLYHGB #### [facility] [address] [place] [address] 92468 Baseball Pitcher: Savage Jacob MD(cont.)[facility] Comment on above:Result Comment: Average GFR for 70 or more years old: 75 mL/min/1.73sq m Chronic Kidney Disease: <60 mL/min/1.73sq m Kidney failure: <15 mL/min/1.73sq m eGFR calculated using average adult body mass. Additional eGFR calculator available at: http://www.LikeBetter.com/multiple_crcl_2011.htmPerformed By: #### CDP, PFA, CP, GLYHGB #### [facility] [address] [place] [address] 30030 Baseball Pitcher: Savage Jacob MDAnion gap [Moles/Vol]19 mmol/LHigh9-17[facility] CenterComment on above:Performed By: #### CDP, PFA, CP, GLYHGB #### [facility] [address] [place] [address] 47338 Baseball Pitcher: Savage Jacob MDCalcium [Mass/Vol]9.8 mg/dLNormal8.6-10.4[facility] CenterComment on above:Performed By: #### CDP, PFA, CP, GLYHGB #### [facility] [address] [place] [address] 58278 Baseball Pitcher: Savage Jacob MDChloride [Moles/Vol]113 mmol/LJxhi56-113IdtgnAdena Fayette Medical CenterComment on above:Performed By: #### CDP, PFA, CP, GLYHGB #### [facility] [address] [place] [address] 36181 Baseball Pitcher: Savage Jacob MDCO2 [Moles/Vol]21 mmol/KItxzka76-17ZdjbyAdena Fayette Medical CenterComment on above:Performed By: #### CDP, PFA, CP, GLYHGB #### [facility] [address] [place] [address] 65860 Baseball Pitcher: Savage Jacob MDCreatinine [Mass/Vol]1.16 mg/dLHigh0.50-0.90 [facility] CenterComment on above:Performed By: #### CDP, PFA, CP, GLYHGB #### [facility] [address] [place] [address] 02329 Baseball Pitcher: SALLY Barahona, Amer56 mL/minLow>60[facility] CenterComment on above:Performed By: #### CDP, PFA, CP, GLYHGB #### [facility] [address] [place] [address] 81229 Baseball Pitcher: SALLY Barahona,non Amer46 mL/minLow>60[facility] CenterComment on above:Performed By: #### CDP, PFA, CP, GLYHGB #### [facility] [address] [place] [address] 20194 Baseball Pitcher: Savage Jacob MDGlucose [Mass/Vol]157 mg/sVYieu79-41TilozKeck Hospital of USCComment on above:Performed By: #### CDP, PFA, CP, GLYHGB #### [facility] [address] [place] [address] 93856 Baseball Pitcher: Savage Jacob MDPotassium [Moles/Vol]3.6 mmol/LLow3.7-5.3MKeck Hospital of USCComment on above:Result Comment: SPECIMEN SLIGHTLY HEMOLYZED, RESULTS MAY BE ADVERSELY AFFECTED.Performed By: #### CDP, PFA, CP, GLYHGB #### [facility] [address] [place] [address] 22810 Baseball Pitcher: ZANA Barahonaodium [Moles/Vol]153 mmol/BZbsm835-425WgdqsAdena Fayette Medical CenterComment on above:Performed By: #### CDP, PFA, CP, GLYHGB #### [facility] [address] [place] [address] 37528 Baseball Pitcher: Savage Jacob MDUrea nitrogen [Mass/Vol]16 mg/dLNormal8-23[facility] CenterComment on above:Performed By: #### CDP, PFA, CP, GLYHGB #### [facility] [address] [place] [address] 67132 Baseball Pitcher: Savage Jacob MDBl Gas,Mix-Rufino,Phil Campbell 82-75-4391BnBL8.8 %Normal 0-5.0[facility] Medical CenterComment on above:Performed By: #### CDP, PFA, CP, GLYHGB #### [facility] [address] [place] [address] 45392 Baseball Pitcher: Savage Jacob MDHemoglobin (Bld) [Mass/Vol]12.6 g/dLNormal 12.0-18.0A[facility] Medical CenterComment on above:Performed By: #### CDP, PFA, CP, GLYHGB #### [facility] [address] [place] [address] 81521 Baseball Pitcher: ALISSA BarahonaetHb0.8 %Normal0.0-1.5[facility] CenterComment on above:Performed By: #### CDP, PFA, CP, GLYHGB #### [facility] [address] [place] [address] 68269 Baseball Pitcher: Savage Jacob MDO2 Ylabuaw88 vol %Normal6-15[facility] Medical CenterComment on above:Performed By: #### CDP, PFA, CP, GLYHGB #### [facility] [address] [place] [address]22 Baseball Pitcher: Savage Jacob MDOxygen saturation in Blood65.6 %Crphie96-55QsgzbAdena Fayette Medical CenterComment on above:Performed By: #### CDP, PFA, CP, GLYHGB #### [facility] [address] [place] [address] [id number] Baseball Pitcher: Savage Jacob MDOxygen Eqdeqa31YormowXzkmhAdena Fayette Medical CenterComment on above:Performed By: #### CDP, PFA, CP, GLYHGB #### [facility] [address] [place] [address] [phone] Baseball Pitcher: CASEY BarahonaALCIUM, IONIC (POC)on 30-68-1186CKZ Ionized Calcium1.19 mmol/L1.15 - 1.33 mmol/LMohiohealth grady [facility]- [place], KYPOC Ionized Calcium1.23 mmol/L1.15 - 1.33 mmol/LMbarberton citizens hospitaly [facility]- [place], KYPOC Ionized Calcium1.23 mmol/L1.15 - 1.33 mmol/LMbarberton citizens hospitaly Health- [place], KYCALCIUM, IONIZEDon 94-85-8821Ncxgvvo, Ion1.26 mmol/L1.13 - 1.33 mmol/LMercy Health- [place], KYCalcium, Ion1.16 mmol/L1.13 - 1.33 mmol/LMercy Health- [place], KYCBCon 55-69-3834Gnsbqxmicqd distribution width (RBC) [Ratio]15.3 %High11.8-14.4A[facility] CenterComment on above: Performed By: #### PT, PTT #### [facility] [address] [place] [address] 6[address]28 Baseball Pitcher: Savage Jacob MDHematocrit (Bld) [Volume fraction]26.4 %Low 36.3-47.1MKeck Hospital of USCComment on above:Performed By: #### PT, PTT #### [facility] [address] [place] [address] [id number] Baseball Pitcher: Savage Jacob MDHemoglobin (Bld) [Mass/Vol]9.1 g/dLLow11.9-15.1 [facility] CenterComment on above:Performed By: #### PT, PTT #### [address] [address] Baseball Pitcher: ALISSA BarahonaCH (RBC) [Entitic mass]29.0 bxOvfoqr45.2-33.5 [facility] CenterComment on above:Performed By: #### PT, PTT #### [place] [address] Baseball Pitcher: ALISSA BarahonaCHC (RBC) [Mass/Vol]34.5 g/vFSotykd29.4-34.8 [facility] CenterComment on above:Performed By: #### PT, PTT #### [place] [address] Baseball Pitcher: ALISSA BarahonaCV (RBC) [Entitic vol]84.1 dVCxydax07.6-102.9 [facility] CenterComment on above:Performed By: #### PT, PTT #### [place] [address] Baseball Pitcher: Savage Jacob MDNRJOSH Automated0.0 per 100 WBCNormal0.0[facility] CenterComment on above:Performed By: #### PT, PTT #### [place] [address] Baseball Pitcher: HALEY Barahonalatelet mean volume (Bld) [Entitic vol]9.4 fL Normal8.1-13.5[facility] Medical CenterComment on above:Performed By: #### PT, PTT #### [place] [address] Baseball Pitcher: ISABELLE BarahonaBC (Bld) [#/Vol]3.14 10*6/uLLow3.95-5.11[facility] CenterComment on above:Performed By: #### PT, PTT #### [facility] [address] [place], [place] [id number] Baseball Pitcher: Savage Jacob MDWBC (Bld) [#/Vol]8.2 10*3/uLNormal3.5-11.3[facility] Hospital Of San BernardinoComment on above:Performed By: #### PT, PTT #### [facility] [address] [place], [place] [id number] Baseball Pitcher: Savage Jacob MDErythrocyte distribution width (RBC) [Ratio]15.3 %High11.8 - 14.4 %[facility]- [place], KYHematocrit (Bld) [Volume fraction]26.4 % Low36.3 - 47.1 %[facility]- [place], KYHemoglobin (Bld) [Mass/Vol]9.1 g/dLLow11.9 - 15.1 g/dLDayton Children'S Hospital [place], KYInterpretation and review of laboratory results AbnormalMercy Health [facility], KYMCH (RBC) [Entitic mass]29.0 pg25.2 - 33.5 pgDayton Children'S Hospital [place], KYMCHC (RBC) [Mass/Vol]34.5 g/dL28.4 - 34.8 g/dLUniversity Hospitals Ahuja [facility]- [place], [place] MCV (RBC) [Entitic vol]84.1 fL82.6 - 102.9 fLUniversity Hospitals Ahuja Medical Center- [place], KYPlatelet mean volume (Bld) [Entitic vol]9.4 fL8.1 - 13.5 fLUniversity Hospitals Ahuja Medical Center- [place], KYPlatelets (Bld) [#/Vol]87 10*3/uLLowUniversity Hospitals Ahuja Medical Center- [place], KYRBC (Bld) [#/Vol]3.14 10*6/uLLow3.95 - 5.11 m/uLUniversity Hospitals Ahuja [facility] Center- [place], KYWBC (Bld) [#/Vol]0.0 10*3/uL0.0 per 100 WBCUniversity Hospitals Ahuja Medical Center- [place], KYWBC (Bld) [#/Vol]8.2 10*3/uLUniversity Hospitals Ahuja Medical Center- [place], KYErythrocyte distribution width (RBC) [Ratio]14.7 %High11.8-14.4[facility] CenterComment on above:Performed By: #### CDP, PFA, CP, GLYHGB #### [address] [address] Baseball Pitcher: Savage Jacob MDHematocrit (Bld) [Volume fraction]28.0 %Low 36.3-47.1MKeck Hospital of USCComment on above:Performed By: #### CDP, PFA, CP, GLYHGB #### [place] [address] Baseball Pitcher: Savage Jacob MDHemoglobin (Bld) [Mass/Vol]9.5 g/dLLow11.9-15.1 [facility] CenterComment on above:Performed By: #### CDP, PFA, CP, GLYHGB #### [place] [address] Baseball Pitcher: LAISSA BarahonaCH (RBC) [Entitic mass]28.5 viIcctag40.2-33.5 [facility] CenterComment on above:Performed By: #### CDP, PFA, CP, GLYHGB #### [facility] [address] [place] [address] Baseball Pitcher: ALISSA BarahonaCHC (RBC) [Mass/Vol]33.9 g/fILfjuul10.4-34.8 [facility] CenterComment on above:Performed By: #### CDP, PFA, CP, GLYHGB #### [place] [address] Baseball Pitcher: ALISSA BarahonaCV (RBC) [Entitic vol]84.1 bYMkzqsc70.6-102.9 [facility] CenterComment on above:Performed By: #### CDP, PFA, CP, GLYHGB #### [place] [address] Baseball Pitcher: Savage Jacob MDNRBC Automated0.0 per 100 WBCNormal0.0[facility] CenterComment on above:Performed By: #### CDP, PFA, CP, GLYHGB #### [address] [address] Baseball Pitcher: Taylor Barahonatemartine mean volume (Bld) [Entitic vol]9.3 fL Normal8.1-13.5[facility] CenterComment on above:Performed By: #### CDP, PFA, CP, GLYHGB #### [facility] [address] [place] [address] Baseball Pitcher: HALEY Barahonalatelets (Bld) [#/Vol]51 10*3/nKFgz040-077GqsgqAdena Fayette Medical CenterComment on above:Performed By: #### CDP, PFA, CP, GLYHGB #### [facility] [address] [place] [address]137 Baseball Pitcher: ISABELLE BarahonaBC (Bld) [#/Vol]3.33 10*6/uLLow3.95-5.11[facility] CenterComment on above:Performed By: #### CDP, PFA, CP, GLYHGB #### [address] [address] Baseball Pitcher: Savage Jacob MDWBC (Bld) [#/Vol]8.8 10*3/uLNormal3.5-11.3MKeck Hospital of USCComment on above:Performed By: #### CDP, PFA, CP, GLYHGB #### [facility] [address] [place] [address]68 Baseball Pitcher: Savage Jacob MDErythrocyte distribution width (RBC) [Ratio]14.7 %High11.8 - 14.4 %[facility], KYHematocrit (Bld) [Volume fraction]28.0 % Low36.3 - 47.1 %[place], KYHemoglobin (Bld) [Mass/Vol]9.5 g/dLLow11.9 - 15.1 g/dLQueen Anne, KYInterpretation and review of laboratory results AbnormalQueen [place], KYMCH (RBC) [Entitic mass]28.5 pg25.2 - 33.5 pgQueen Anne, KYMCHC (RBC) [Mass/Vol]33.9 g/dL28.4 - 34.8 g/dLQueen [place], [place] MCV (RBC) [Entitic vol]84.1 fL82.6 - 102.9 fLQueen [place], KYPlatelet mean volume (Bld) [Entitic vol]9.3 fL8.1 - 13.5 fLQueen Anne, KYPlatelets (Bld) [#/Vol]51 10*3/uLLowQueen Anne, KYRBC (Bld) [#/Vol]3.33 10*6/uLLow3.95 - 5.11 m/uLMercy Health [facility], MNWBC (Bld) [#/Vol]8.8 10*3/uLQueen Anne, KYWBC (Bld) [#/Vol]0.0 10*3/uL0.0 per 100 WBCQueen Anne, KYCBC with Diffon 20-35-2886Avp. Basophil0.06 k/uLNormal0.00-0.20[facility] Comment on above:Performed By: #### CDP, PFA, CP, GLYHGB #### [facility] [facility] [address] [place], [place] [address] Baseball Pitcher: Shea Barahona.Imm.Granulocyte0.21 k/uLNormal0.00-0.30[facility] CenterComment on above:Performed By: #### CDP, PFA, CP, GLYHGB #### [employer] [address] [place], [place] [id number] Baseball Pitcher: Savage Madoff, MDAbs.Neutrophil (Seg)14.05 k/uLHigh1.50-8.10[facility] CenterComment on above:Performed By: #### CDP, PFA, CP, GLYHGB #### [facility] [address] [place] [address] Baseball Pitcher: Savage Jacob MDBasophils/100 WBC (Bld)0 %Normal0-2MercGranada Hills Community HospitalComment on above:Performed By: #### CDP, PFA, CP, GLYHGB #### [facility] [address] [place] [address] Baseball Pitcher: Savage Jacob MDEosinophils (Bld) [#/Vol]0.14 10*3/uLNormal 0.00-0.44[facility] CenterComment on above:Performed By: #### CDP, PFA, CP, GLYHGB #### [facility] [address] [place] [address] Baseball Pitcher: TIERA Barahonaosinophils/100 WBC (Bld)1 %Normal1-4[facility] CenterComment on above:Performed By: #### CDP, PFA, CP, GLYHGB #### [facility] [address] [place] [address] Baseball Pitcher: Savage Jacob MDErythrocyte distribution width (RBC) [Ratio]14.5 %High11.8-14.4[facility] CenterComment on above:Performed By: #### CDP, PFA, CP, GLYHGB #### [facility] [address] [place] [address] Baseball Pitcher: Savage Jacob MDHematocrit (Bld) [Volume fraction]37.0 %Normal 36.3-47.1MKeck Hospital of USCComment on above:Performed By: #### CDP, PFA, CP, GLYHGB #### [facility] [address] [place] [address] Baseball Pitcher: Savage Jacob MDHemoglobin (Bld) [Mass/Vol]12.8 g/dLNormal 11.9-15.1MKeck Hospital of USCComment on above:Performed By: #### CDP, PFA, CP, GLYHGB #### [address] [address] Baseball Pitcher: Savage Jacob MDImmature granulocytes (Bld) [#/Vol]1 %Stqa3YzlfhAdena Fayette Medical CenterComment on above:Performed By: #### CDP, PFA, CP, GLYHGB #### [place] [address] Baseball Pitcher: Savage Jacob MDLymphocytes (Bld) [#/Vol]1.73 10*3/uLNormal 1.10-3.70[facility] CenterComment on above:Performed By: #### CDP, PFA, CP, GLYHGB #### [place] [address] Baseball Pitcher: Kathie Barahonamphocytes/100 WBC (Bld)10 %Xnc38-74StelpAdena Fayette Medical CenterComment on above:Performed By: #### CDP, PFA, CP, GLYHGB #### [place] [address] Baseball Pitcher: ALISSA BarahonaCH (RBC) [Entitic mass]29.2 ctFwoihs99.2-33.5 [facility] CenterComment on above:Performed By: #### CDP, PFA, CP, GLYHGB #### [facility] [address] [place] [address] Baseball Pitcher: ALISSA BarahonaCHC (RBC) [Mass/Vol]34.6 g/hRFvtdtr99.4-34.8 [facility] Medical CenterComment on above:Performed By: #### CDP, PFA, CP, GLYHGB #### [address] [address] Baseball Pitcher: ALISSA BarahonaCV (RBC) [Entitic vol]84.3 eKAgzvjv64.6-102.9 [facility] CenterComment on above:Performed By: #### CDP, PFA, CP, GLYHGB #### [place] [address] Baseball Pitcher: ALISSA Barahonaonocytes (Bld) [#/Vol]1.07 10*3/uLNormal 0.10-1.20[facility] Medical CenterComment on above:Performed By: #### CDP, PFA, CP, GLYHGB #### [place] [address] Baseball Pitcher: ALISSA Barahonaonocytes/100 WBC (Bld)6 %Normal3-12[facility] Medical CenterComment on above:Performed By: #### CDP, PFA, CP, GLYHGB #### [place] [address] Baseball Pitcher: Jero Barahonaophil (Seg)82 %Utlm21-33JjlrvAdena Fayette Medical CenterComment on above:Performed By: #### CDP, PFA, CP, GLYHGB #### [place] [address] Baseball Pitcher: Savage Jacob MDNRBC Automated0.0 per 100 WBCNormal0.0[facility] Medical CenterComment on above:Performed By: #### CDP, PFA, CP, GLYHGB #### [address] [address] Baseball Pitcher: HALEY Barahonalatelet mean volume (Bld) [Entitic vol]8.9 fL Normal8.1-13.5[facility] Medical CenterComment on above:Performed By: #### CDP, PFA, CP, GLYHGB #### [facility] [address] [place] [address] Baseball Pitcher: Taylor Barahonatejimbo (Bld) [#/Vol]75 10*3/tPGdm258-497TvnaoAdena Fayette Medical CenterComment on above:Performed By: #### CDP, PFA, CP, GLYHGB #### [facility] [address] [place] [address] Baseball Pitcher: ISABELLE BarahonaBC (Bld) [#/Vol]4.39 10*6/uLNormal3.95-5.11 [facility] CenterComment on above:Performed By: #### CDP, PFA, CP, GLYHGB #### [address] [address] Baseball Pitcher: MELISSA Barahona morphology finding Nom (Bld)ANISOCYTOSIS PRESENTLancaster Municipal HospitalComment on above:Performed By: #### CDP, PFA, CP, GLYHGB #### [address] [address] Baseball Pitcher: PETR Barahona (Bld) [#/Vol]17.3 10*3/uLHigh3.5-11.3Mbarberton citizens hospitaly [facility] Of San BernardinoComment on above:Performed By: #### CDP, PFA, CP, GLYHGB #### [facility] [address] [place] [address] Baseball Pitcher: Samir Barahona Diff PerformedNOT REPORTEDNoalAdena Fayette Medical CenterComment on above:Performed By: #### CDP, PFA, CP, GLYHGB #### [facility] [address] [place] [address] Baseball Pitcher: Rico Barahona (Bld) [#/Vol]NOT REPORTEDLancaster Municipal HospitalComment on above:Performed By: #### CDP, PFA, CP, GLYHGB #### [facility] [address] [place] [address] Baseball Pitcher: PETR Barahona MorphologyNOT REPORTEDLancaster Municipal HospitalComment on above:Performed By: #### CDP, PFA, CP, GLYHGB #### [facility] [address] [place] [address] Baseball Pitcher: Savage Jacob, MDCHLORIDE (POC)on 13-48-9448JUG Nzymckww905 mmol/LHigh98 - 107 mmol/LMohiohealth grady [facility] Health- [place], KYPOC Xzcigulw765 mmol/LHigh98 - 107 mmol/LMercy Health- [place], KYPOC Bwxwcpaw963 mmol/LHigh98 - 107 mmol/LMercy Health- [place], KYCalcium, Ionicon 26-06-6348Ndvkznv [Mass/Vol]1.26 mmol/LNormal1.13-1.33 [facility] CenterComment on above:Performed By: #### PT, PTT #### [facility] [address] [place] [address] Baseball Pitcher: Savage Jacob MDCalcium [Mass/Vol]1.16 mmol/LNormal1.13-1.33 [facility] CenterComment on above:Performed By: #### PT, PTT #### [facility] [address] [place] [address] Baseball Pitcher: Savage Jacob MDCalcium [Mass/Vol]1.14 mmol/LNormal1.13-1.33 [facility] CenterComment on above:Performed By: #### CDP, PFA, CP, GLYHGB #### [facility] [address] [place] [address] Baseball Pitcher: Savage Jacob MDCalcium [Mass/Vol]1.32 mmol/LNormal1.13-1.33 [facility] CenterComment on above:Performed By: #### CDP, PFA, CP, GLYHGB #### [facility] [address] [place], [place] [id number] Baseball Pitcher: Janae Barahona W/GFR Point of Careon 86-29-9738FOX Chxsnrz61 mL/minLow>60[facility]- [place], KYGFR CommentMercy Health- [place], KYGFR Non- Kmqqgarm27 mL/minLow>60[facility]- [place], KYPOC Creatinine1.46 mg/dL High0.51 - 1.19 mg/dLMercy Health- [place], KYGFR CommentMercy Health- [place], KYGFR Veffenx82 mL/minLow>60[facility]- [place], KYGFR Non- Yfltvycf99 mL/minLow >60[facility], KYPOC Creatinine1.27 mg/dLHigh0.51 - 1.19 mg/dLMercy Health- [place], KYGFR CommentMercy Health- [place], KYGFR Jtanqag95 mL/minLow>60[facility]- [place], KYGFR Non- Lhyorlzk22 mL/minLow>60[facility], KYPOC Creatinine1.23 mg/dLHigh0.51 - 1.19 mg/dLMercy Health- [place], KYCult,Urineon 00-36-2299Hnrj,UrineSpecimen Description .CATHETERIZED URINE Special Requests NOT REPORTED Culture NO GROWTH Report Status FINAL 07/04/2019L[facility] Municipal HospitalComment on above:Performed By: #### PT, PTT #### [facility] [address] [place], [place] [id number] Baseball Pitcher: JONG Barahona 12 Leadon 04-38-4502Ptmakh Zvxj41VTCElpsk Health- [place], KYP Egev81uuufqxuXblad Health- [place], KYP-R Oujbnkef836 msMercy Health- [place], KYQ-T Dsskevym688 msMercy Health- [place], KYQRS Acjwiweh281 msMercy Health- [place], KYQTc Calculation (Chandrika)611 msMercy Health- [place], KYR [place]-3degreesMercy Health- [place], KYT Ebdn747qcbpaxqInjgz Health- [place], KYVentricular Yfto83PYDXwadu Health- [place], KYMercy [facility]- [place], KYMercy [facility]- [place], KYAtrial Kssk94MNKOpakc Health- [place], KYP Phkc30mprnwhvOvqfn Health- [place], KYP-R Phwztmkz907 msMercy Health- [place], KYQ-T Fvoxrwfz208 msMercy Health- [place], KYQRS Nzcbyxbq087 msMercy [facility]- [place], KYQTc Calculation ()604 msMercy Health- [place], KYR Aphh0lahhuswQhkuq Health- [place], KYT Ysri766rhyvbjmYaxsh Health- [place], KYVentricular Nicl38QYVAjiyl Health- [place], KYEKG 12 leadon 29-34-5690Dbajst Blvu51QKYAbxqb Health- [place], KYP Axis54 degreesMercy Health- [place], KYP-R Jpdspbip054 msMercy Health- [place], KYQ-T Qahcdzri728 msMercy [facility]- [place], KYQRS Pwnemnqj899 msMercy [facility]- [place], KYQTc Calculation ()547 msMercy Health- [place], KYR [place]-59degreesMercy Health- [place], KYT Axis98 degreesMercy Health- [place], KYVentricular Jams85SDGXwomw Health- [place], KYFFP, Transfuseon 23-03-9576KNW, TransfuseUnit Number [id number] Blood Component Type Fresh Plasma Unit Division 00 Status of Unit TRANSFUSED Transfusion Status OK TO TRANSFUSENormalAdena Fayette Medical CenterComment on above:Performed By: #### PT, PTT #### [facility] [address] [place] [address] [phone] Baseball Pitcher: JANKI Barahona, TransfuseUnit Number [id number] Blood Component Type Fresh Plasma Unit Division 00 Status of Unit TRANSFUSED Transfusion Status OK TO TRANSFMERCY HEALTH LOVE COUNTY – MARIETTAormalAdena Fayette Medical CenterComment on above:Performed By: #### PT, PTT #### [facility] [address] [place] [address] [phone] Baseball Pitcher: Savage Jacob MDFibrinogenon 71-80-7396Sglpertwth<80Critically jjh794-044AftgqAdena Fayette Medical CenterComment on above:Performed By: #### CDP, PFA, CP, GLYHGB #### [facility] [address] [place] [address] [phone] Baseball Pitcher: Savage Jacob MDHEMOGLOBIN AND HEMATOCRIT, BLOODon 07-04-2019 Hematocrit (Bld) [Volume fraction]24.5 %Low36.3 - 47.1 %[place] Hemoglobin (Bld) [Mass/Vol]8.3 g/dLLow11.9 - 15.1 g/dLQueen Anne, [place] Interpretation and review of laboratory resultsAbnormalMercy Health [facility], [place] Hematologyon 92-62-7174Rycqf product type Nom (BPU)Fresh PlasmaQueen Anne, KYHemoglobin and hematocrit, bloodon 81-56-4589ELL Vxekmzusfk06 %Low36 - 46 % [facility], MNPO Hemoglobin8.1 g/dLLow12 - 16 g/dLMercy Health Kings [facility] Hospital, MNPOC Kbchyfwcfu96 %Low36 - 46 %[facility], MNPO Hemoglobin8.5 g/dLLow12 - 16 g/dLMercy Health [facility], MNPO Lswenbmomv69 %Low36 - 46 %[facility], MNPO Hemoglobin8.5 g/dLLow12 - 16 g/dLMercy Health [facility], MNHgb/Hcton 07-04-2019 Hematocrit (Bld) [Volume fraction]24.5 %Low36.3-47.1MKeck Hospital of USCComment on above:Performed By: #### PT, PTT #### [facility] [address] [place] [address] [phone] Baseball Pitcher: Savage Jacob MDHemoglobin (Bld) [Mass/Vol]8.3 g/dLLow11.9-15.1 [facility] CenterComment on above:Performed By: #### PT, PTT #### [facility] [address] [place] [address] Baseball Pitcher: Savage Jacob MDK (Potassium)on 04-17-2400Tmfvvyspl [Moles/Vol] 4.4 mmol/LNormal3.7-5.3Mbarberton citizens hospitaly [facility] Of San BernardinoComment on above: Performed By: #### PT, PTT #### [facility] [address] [place] [address] Baseball Pitcher: ANDREA BarahonaCTIC ACID, WHOLE BLOODon 95-08-7704Wysvox Acid, Whole Blood1.8 mmol/L0.7 - 2.1 mmol/[facility] [place], KYLactic Acid, Whole Blood2.1 mmol/L0.7 - 2.1 mmol/[facility] [place], KYLactic Acid, POCon 43-04-2492TNP Lactic Acid1.70 mmol/LHigh0.56 - 1.39 mmol/[facility] [place], [place] POC Lactic Acid3.63 mmol/LHigh0.56 - 1.39 mmol/[facility] [place], KYPOC Lactic Acid5.10 mmol/LHigh0.56 - 1.39 mmol/[facility] [place], KYLactic Acid,Whole Blon 78-68-2551Zmykvi Acid,Whole Bl1.8 mmol/LNormal0.7-2.1MKeck Hospital of USCComment on above:Performed By: #### PT, PTT #### [facility] [address] [place] [address] Baseball Pitcher: Andrea Barahonactic Acid,Whole Bl2.1 mmol/LNormal0.7-2.1MKeck Hospital of USCComment on above:Performed By: #### PT, PTT #### [facility] [address] [place] [address] Baseball Pitcher: Andrea Barahonactic Acid,Whole Bl7.8 mmol/LHigh0.7-2.1MKeck Hospital of USCComment on above:Performed By: #### CDP, PFA, CP, GLYHGB #### [facility] [address] [place] [address] Baseball Pitcher: Debbie Barahona Profileon 11-79-8343Lbyzpnp [Mass/Vol]3.2 g/dLLow3.5-5.2Mbarberton citizens hospitaly [facility] San BernardinoComment on above:Performed By: #### CDP, PFA, CP, GLYHGB #### [facility] [address] [place] [address] Baseball Pitcher: Savage Jacob MDAlbumin/Globulin [Mass ratio]2.9 {ratio}High 1.0-2.5A[facility] Medical CenterComment on above:Performed By: #### CDP, PFA, CP, GLYHGB #### [facility] [address] [place] [address] Baseball Pitcher: Mino Barahonaline Phos20 U/AFqy36-437VedlgAdena Fayette Medical CenterComment on above:Performed By: #### CDP, PFA, CP, GLYHGB #### [facility] [address] [place] [address] Baseball Pitcher: Savage Jacob MDALT [Catalytic activity/Vol]161 U/LHigh5-33[facility] CenterComment on above:Performed By: #### CDP, PFA, CP, GLYHGB #### [facility] [address] [place] [address] Baseball Pitcher: Savage Jacob MDAST [Catalytic activity/Vol]195 U/LHigh<32A[facility] Medical CenterComment on above:Performed By: #### CDP, PFA, CP, GLYHGB #### [facility] [address] [place] [address] Baseball Pitcher: Savage Jacob MDBilirubin Ql (U)0.70 mg/dLNormal0.3-1.2MKeck Hospital of USCComment on above:Performed By: #### CDP, PFA, CP, GLYHGB #### [facility] [address] [place] [address] Baseball Pitcher: Sammie Barahonairubin, Indirect0.52 mg/dLNormal0.00-1.00 [facility] CenterComment on above:Performed By: #### CDP, PFA, CP, GLYHGB #### [facility] [address] [place] [address] Baseball Pitcher: Sammie Barahonairubin.direct [Mass/Vol]0.18 mg/dLNormal<0.31 [facility] CenterComment on above:Performed By: #### CDP, PFA, CP, GLYHGB #### [facility] [address] [place] [address] Baseball Pitcher: HALEY Barahonarotein [Mass/Vol]4.3 g/dLLow6.4-8.3MKeck Hospital of USCComment on above:Performed By: #### CDP, PFA, CP, GLYHGB #### [facility] [address] [place] [address] Baseball Pitcher: Savage Jacob MDGlobulin (S) [Mass/Vol]NOT REPORTEDNormal1.5-3.8 [facility] CenterComment on above:Performed By: #### CDP, PFA, CP, GLYHGB #### [facility] [address] [place] [address] Baseball Pitcher: Savage Jacob MDMAGNESIUMon 84-82-0393Rtewlljjm [Mass/Vol]2.3 mg/dL1.6 - 2.6 mg/dLMercy Health [facility], KYMagnesium [Mass/Vol]2.4 mg/dL1.6 - 2.6 mg/dLMercy Health [facility], KYMagnesium [Mass/Vol]2.3 mg/dL1.6 - 2.6 mg/dLMercy Health Kings [facility] Hospital, KYMagnesiumon 24-80-5722Hjstfkwjx [Mass/Vol]2.3 mg/dLNormal1.6-2.6 [facility] CenterComment on above:Performed By: #### UA, UMICAO #### [facility] [address] [place] [address] Baseball Pitcher: Savage Archerkatie, MDMagnesium [Mass/Vol]2.4 mg/dLNormal1.6-2.6Mer[facility] Of San BernardinoComment on above:Performed By: #### PT, PTT #### [address] [address] Baseball Pitcher: Savage Archerkatie, MDMagnesium [Mass/Vol]2.3 mg/dLNormal1.6-2.6Mercy [facility] Of San BernardinoComment on above:Performed By: #### PT, PTT #### [facility] [address] [place] [address] Baseball Pitcher: Savageellyn Jacob, MDMagnesium [Mass/Vol]2.2 mg/dLNormal1.6-2.6Mer[facility] Of San BernardinoComment on above:Performed By: #### PT, PTT #### [address] [address] Baseball Pitcher: Savage Jacob, MDMagnesium [Mass/Vol]2.2 mg/dL1.6 - 2.6 mg/dL [facility], KYMagnesium [Mass/Vol]2.5 mg/dLNormal1.6-2.6Mer[facility] Of San BernardinoComment on above:Performed By: #### CDP, PFA, CP, GLYHGB #### [facility] [address] [place] [address] Baseball Pitcher: Savage Jacob, MDMagnesium [Mass/Vol]2.6 mg/dLNormal1.6-2.6Mercy [facility] Of San BernardinoComment on above:Performed By: #### CDP, PFA, CP, GLYHGB #### [facility] [address] [place] [address] Baseball Pitcher: KAREN Barahona HEART COAGon 63-07-3417kGZI Coag (Bld) [Time]37.7 [facility], TSOyxllegrmx153 mg/dL140 - 420 mg/dLMercy Health Kings Mills Hospital, KYINR Coag (PPP) [Relative time]1.2 {INR}[facility], [place] Interpretation and review of laboratory resultsAbnoSumma Health W[facility], [place] Platelets (Bld) [#/Vol]80 10*3/uLOhioHealth [facility] Hospital, KYPT Coag (PPP) [Time]12.9 [facility], KYaPTT Coag (Bld) [Time]50.4 [facility], [place] Rgnofvamna280 mg/eMTfk102 - 420 mg/dLMercy Health [facility], KYINR Coag (PPP) [Relative time]1.3 {INR}[facility], MNInterpretation and review of laboratory resultsAbnoSumma Health Wadsworth - [facility], KYPlatelets (Bld) [#/Vol]87 10*3/uL [facility] [facility], KYPT Coag (PPP) [Time]13.7 [facility], KYaPTT Coag (Bld) [Time]31.7 [facility], IOJmvxtrxzjz01 mg/mRPub631 - 420 mg/dLMercy Health [facility], KYINR Coag (PPP) [Relative time]1.4 {INR}[facility], KYInterpretation and review of laboratory resultsAbWilson Memorial Hospital, KYPlatelets (Bld) [#/Vol]68 10*3/uLOhioHealth [facility] [facility], KYPT Coag (PPP) [Time] 14.7 [facility], KYOpen Heart Coagon 67-09-3298bOCO Coag (Bld) [Time] 37.7 [facility]h20.5-30.5A[facility] Medical CenterComment on above:Performed By: #### PT, PTT #### [facility] [place] [address] Baseball Pitcher: Savage Jacob MDFibrinogen151 mg/tYWopiwa076-480DlvpuAdena Fayette Medical CenterComment on above:Performed By: #### PT, PTT #### [address] [address] Baseball Pitcher: ARLET Barahona Coag (PPP) [Relative time]1.2 {INR}Normal [facility] Medical CenterComment on above:Result Comment: Therapeutic Range: Moderate Anticoagulant Intensity: INR = 2.0-3.0 High Anticoagulant Intensity: INR = 2.5-3.5Performed By: #### PT, PTT #### [address] [address] Baseball Pitcher: RIGO Barahona Coag (PPP) [Time]12.9 sHigh9.0-12.0A[facility] Medical CenterComment on above:Performed By: #### PT, PTT #### [address] [address] Baseball Pitcher: Rico Barahona (Bld) [#/Vol]80 10*3/oEAoy016-205WvrxqAdena Fayette Medical CenterComment on above:Performed By: #### PT, PTT #### [address] [address] Baseball Pitcher: Shalom Barahona Coag (Bld) [Time]50.4 sHigh20.5-30.5A[facility] Medical CenterComment on above:Performed By: #### PT, PTT #### [address] [address] Baseball Pitcher: Savage Jacob MDFibrinogen125 mg/lYKip648-441DcahjAdena Fayette Medical CenterComment on above:Performed By: #### PT, PTT #### [facility] [address] [place] [address] Baseball Pitcher: ARLET Barahona Coag (PPP) [Relative time]1.3 {INR}Normal [facility] Medical CenterComment on above:Result Comment: Therapeutic Range: Moderate Anticoagulant Intensity: INR = 2.0-3.0 High Anticoagulant Intensity: INR = 2.5-3.5Performed By: #### PT, PTT #### [address] [address] Baseball Pitcher: RIGO Barahona Coag (PPP) [Time]13.7 sHigh9.0-12.0A[facility] Medical CenterComment on above:Performed By: #### PT, PTT #### [address] [address] Baseball Pitcher: Rico Barahona (Bld) [#/Vol]87 10*3/zWWse041-359HdoytAdena Fayette Medical CenterComment on above:Performed By: #### PT, PTT #### [address] [address] Baseball Pitcher: Savage Jacob MDaPTJuanita Coag (Bld) [Time]31.7 sHigh20.5-30.5A[facility] Medical CenterComment on above:Performed By: #### CDP, PFA, CP, GLYHGB #### [address] [address] Baseball Pitcher: Savage Jacob MDFibrinogen99 mg/mLEhj022-524MpyxyAdena Fayette Medical CenterComuniversity of michigan health on above:Performed By: #### CDP, PFA, CP, GLYHGB #### [address] [address] Baseball Pitcher: ARLET Barahona Coag (PPP) [Relative time]1.4 {INR}Normal [facility] Medical CenterComment on above:Result Comment: Therapeutic Range: Moderate Anticoagulant Intensity: INR = 2.0-3.0 High Anticoagulant Intensity: INR = 2.5-3.5Performed By: #### CDP, PFA, CP, GLYHGB #### [facility] [address] [place] [address] Baseball Pitcher: RIGO Barahona Coag (PPP) [Time]14.7 sHigh9.0-12.0A[facility] Medical CenterComment on above:Performed By: #### CDP, PFA, CP, GLYHGB #### [facility] [address] [place] [address] Baseball Pitcher: Rico Barahona (Bld) [#/Vol]68 10*3/yABkm887-017JnpnrAdena Fayette Medical CenterComment on above:Performed By: #### CDP, PFA, CP, GLYHGB #### [facility] [address] [place] [address] Baseball Pitcher: Savage Jacob MDFibrinogen<80Critically pjd594-571BrxykAdena Fayette Medical CenterComment on above:Performed By: #### CDP, PFA, CP, GLYHGB #### [facility] [address] [place] [address] Baseball Pitcher: ARLET Barahona Coag (PPP) [Relative time]3.2 {INR}Normal [facility] Medical CenterComment on above:Result Comment: Therapeutic Range: Moderate Anticoagulant Intensity: INR = 2.0-3.0 High Anticoagulant Intensity: INR = 2.5-3.5Performed By: #### CDP, PFA, CP, GLYHGB #### [facility] [address] [place] [address] Baseball Pitcher: RIGO Barahona Coag (PPP) [Time]31.0 sHigh9.0-12.0A[facility] Medical CenterComment on above:Performed By: #### CDP, PFA, CP, GLYHGB #### [facility] [address] [place] [address] Baseball Pitcher: Shalom Barahonag (Bld) [Time]85.9 sCritically high 20.5-30.5A[facility] Medical CenterComment on above:Performed By: #### CDP, PFA, CP, GLYHGB #### [facility] [address] [place] [address] Baseball Pitcher: Jovany Barahona 20-23-8775OfyzmMercy Health [facility] Hospital, KYMer[facility], KYInterpretation and review of laboratory resultsAbnormHolzer Hospital, KYTEG CommentNOT REPORTEDMercy Health [facility], KYInterpretation and review of laboratory resultsAbnoSumma Health W[facility], KYTEG CommentNOT REPORTED [facility], KYTEG CommentNOT REPORTEDMercy Health [facility], KYTE CommentNOT REPORTEDMercy Health [facility], KYInterpretation and review of laboratory results AbnormalMercy Health [facility], KYDispense StatusTRANSFUSESamaritan Hospital, [place] Transfusion StatusOK TO TRANSFUSEMercy Health Kings [facility] Hospital, KYUnit Unbttqi8YbqiyMercy Health Kings [facility] Hospital, KYInterpretation and review of laboratory resultsAbnoSumma Health W[facility], MNInterpretation and review of laboratory resultsAbnoSumma Health Wadsworth - [facility], MNPO Glucose Fingerstickon 96-88-4123Hujqrkksabjycl and review of laboratory results AbnormalMercy Health [facility], MNPO Azgelwh680 mg/gGVfcm35 - 105 mg/dLMercy Health [facility], MNPO Xzdcvdi17 mg/dL65 - 105 mg/dLMercy Health Kings [facility], KYInterpretation and review of laboratory resultsAbnormHolzer Hospital, MNPO Qoixebn014 mg/dLHigh 65 - 105 mg/dLMercy Health [facility], MNInterpretation and review of laboratory resultsAbnormHolzer Hospital, MNPO Rqemwya872 mg/eBVmwn87 - 105 mg/dLMercy Health Kings [facility], MNPO Trfimgo906 mg/dJReyy40 - 105 mg/dLMercy Health [facility], [place] Interpretation and review of laboratory resultsAbnoSumma Health Wad[facility] - [facility], MNPO Zntsrnr867 mg/lFIcns76 - 105 mg/dLMercy Health Kings Mills Hospital, KYPOC Kaolin TEGon 58-75-1287LVH Angle TEGNOT QJTNPGVI45 - 74 degMercy Health- [place], KYPOC EPL TEGNOT REPORTED0 - 15 %[facility]- [place], MNPOC Kinetics TEGNOT REPORTED1 - 3 minMercy Health- [place], MNPOC LY30(Lysis) TEGNOT REPORTED0 - 8 %[facility]- [place], [place] MA(Max Clot) TEGNOT YFHDCWII37 - 74 mmMercy Health- [place], MNPOC Reaction Time TEG 19.6 minHigh4 - 9 minMercy Health- [place], [place]NPOC Angle TEGNOT DXASMNNY48 - 74 deg [facility]- [place], KYPOC EPL TEGNOT REPORTED0 - 15 %[facility]- [place], [place] Kinetics TEGNOT REPORTED1 - 3 min[facility]- [place], [place] LY30(Lysis) TEGNOT REPORTED0 - 8 %[facility]- [place], MNPO MA(Max Clot) TEGNOT POHQMCUG38 - 74 mm [facility]- [place], MNPO Reaction Time TEG28.0 minHigh4 - 9 minMer Health- [place], KYInterpretation and review of laboratory resultsAbnormalMercy Health- [place], MNPO Angle TEG49.1 hdkNpl81 - 74 degMercy Health- [place], MNPOC EPL TEGNOT REPORTED0 - 15 %[facility]- [place], [place] Kinetics TEG3.5 minHigh1 - 3 minMer Health- [place], [place] POC LY30(Lysis) TEGNOT REPORTED0 - 8 %[facility]- [place], MNPO MA(Max Clot) TEG 60.7 mm55 - 74 mmMer Health- [place], [facility] Reaction Time TEG10.2 minHigh4 - 9 min [facility]- [place], KYInterpretation and review of laboratory resultsAbnormalMercy Health- [place], [place]NPOC Angle TEG59.9 deg59 - 74 degMercy Health- [place], MNPOC EPL TEG 0.0 %0 - 15 %[facility]- [place], [place] Kinetics TEG2.3 min1 - 3 minMercy Health- [place], [place]NPOC LY30(Lysis) TEG0.0 %0 - 8 %[facility]- [place], [place] MA(Max Clot) TEG 70.6 mm55 - 74 mmMercy Health- [place], MNPOC Reaction Time TEG11.4 minHigh4 - 9 min [facility]- [place], KYPO Kaolin TEG with Heparinon 65-70-7380QBP Angle TEG w Hep 16.1 utoVhy69 - 74 degWay[facility]- [place], MNPOC EPL TEG W/HEPNOT REPORTED0 - 15 % [facility]- [place], MNPO Kinetics TEG w Hep15.8 minHigh1 - 3 minWay[facility] Hospital Health- [place], MNPOC LY30(Lysis) TEG w HepNOT REPORTED0 - 8 %[facility]- [place], MNPO Max Clot TEG w Hep24.5 mmLow55 - 74 mmWayne Hospital Health- [place], MNPO Reaction Time TEG w Hep14.2 minHigh4 - 9 minWay[facility] Hospital Health- [place], MNPO Angle TEG w HepNOT XRXBJGRB55 - 74 deg [facility]- [place], MNPO EPL TEG W/HEPNOT REPORTED0 - 15 %[facility]- [place], MNPO Kinetics TEG w HepNOT REPORTED1 - 3 min[facility]- [place], MNPO LY30(Lysis) TEG w HepNOT REPORTED0 - 8 %[facility]- [place], MNPO Max Clot TEG w HepNOT HTYFXDAW23 - 74 mmWayne Hospital Health- [place], MNPO Reaction Time TEG w Hep22.9 minHigh4 - 9 min [facility]- [place], [facility] Angle TEG w Hep67.9 deg59 - 74 degUniversity [facility] [place] EPL TEG W/HEPNOT REPORTED0 - 15 %[facility]- [place], [place]PO Kinetics TEG w Hep 1.6 min1 - 3 minUniversity [facility] [place], [place]PO LY30(Lysis) TEG w HepNOT REPORTED0 - 8 % [facility] [place], [place]PO Max Clot TEG w Hep60.7 mm55 - 74 mmUniversity [facility]- [place] Reaction Time TEG w Hep7.6 min4 - 9 min[facility] [place], [place]PO Angle TEG w Hep73.0 deg59 - 74 degUniversity [facility]- [place], MNPOC EPL TEG W/HEP2.9 %0 - 15 %[facility]- [place], MNPO Kinetics TEG w Hep1.2 min1 - 3 min[facility] [place], MNPO LY30(Lysis) TEG w Hep2.9 %0 - 8 %[facility]- [place], MNPOC Max Clot TEG w Hep73.9 mm55 - 74 mmMer[facility], KYPOC Reaction Time TEG w Hep7.0 min4 - 9 min[facility], KYPOCT Glucoseon [id number] Phwgymm706 mg/mROcfe65 - 100 mg/dL [facility], KYPOC Ebimeej686 mg/tSUyva38 - 100 mg/dLMercy Health Kings [facility], [place] P[place] Aivgxwc361 mg/xMUooy28 - 100 mg/dLMercy Health Kings [facility], MNPOTASSIUMon 07-04-2019 Potassium [Moles/Vol]4.4 mmol/L3.7 - 5.3 mmol/LMMercy Health [facility], KYPOTASSIUM (POC)on 02-08-4791ULO Potassium3.9 mmol/L3.5 - 4.5 mmol/[facility], MNPOC Potassium4.4 mmol/L3.5 - 4.5 mmol/[facility], MNPOC Potassium3.6 mmol/L 3.5 - 4.5 mmol/[facility], MNPREPARE FRESH FROZEN PLASMA, 1 Unitson 94-30-0857Ceco [id number] Health- [place], [place]Unit [id number] [facility], MNPREPARE PLATELETS, 1 Producton 33-29-7851Obhpm product type Nom (BPU)Leukocyte Reduced Irradiated PlateletpheresisMMercy Health [facility], KYUnit [id number] Health- [place], KYPTon [id number] Coag (PPP) [Relative time]1.4 {INR}NormalAdena Fayette Medical CenterComment on above:Result Comment: Therapeutic Range: Moderate Anticoagulant Intensity: INR = 2.0-3.0 High Anticoagulant Intensity: INR = 2.5-3.5Performed By: #### CDP, PFA, CP, GLYHGB #### [employer] [address] [place] [address] Baseball Pitcher: RIGO Barahona Coag (PPP) [Time]14.7 sHigh9.0-12.0Adena Fayette Medical CenterComment on above:Performed By: #### CDP, PFA, CP, GLYHGB #### [address] [address] Baseball Pitcher: ALRET Barahona Coag (PPP) [Relative time]1.7 {INR}Normal Ad[facility] Fayette Medical CenterComment on above:Result Comment: Therapeutic Range: Moderate Anticoagulant Intensity: INR = 2.0-3.0 High Anticoagulant Intensity: INR = 2.5-3.5Performed By: #### CDP, PFA, CP, GLYHGB #### [address] [address] Baseball Pitcher: RIGO Barahona Coag (PPP) [Time]17.0 sHigh9.0-12.0Adena Fayette Medical CenterComment on above:Performed By: #### CDP, PFA, CP, GLYHGB #### [address] [id number] Baseball Pitcher: Rico BarahonaTransfuseon 07-04-2019 Platelets,TransfuseUnit Number [id number] Blood Component Type LkIrPlt PAS Unit Division 00 Status of Unit TRANSFUSED Transfusion Status OK TO [facility] HospitalComment on above:Performed By: #### UA, UMICAO #### [address] [address] Baseball Pitcher: Rico BarahonaTransfuseUnit Number [id number] Blood Component Type Leukocyte Reduced Irradiated Plateletpheresis Unit Division 00 Status of Unit TRANSFUSED Transfusion Status OK TO [facility] HospitalComment on above:Performed By: #### PT, PTT #### [address] [id number] Baseball Pitcher: Ric Barahonaime-INRon [phone] Coag (PPP) [Relative time]1.4 {INR}[facility], JERRYInterpretation and review of laboratory resultsAbnormHolzer Hospital, KYPT Coag (PPP) [Time]14.7 sHigAshtabula County Medical Center, KYSODIUM (POC)on [phone] Iwxtzp820 mmol/WMevb046 - 146 mmol/[facility], KYPOC Kxlabt566 mmol/XGguz403 - 146 mmol/[facility], KYPOC Qbuvjr199 mmol/FVyki491 - 146 mmol/[facility], KYUrine Cultureon 03-80-7048KjaxxbkTZ GROWTHMer[facility] Health [facility], KYSpecial RequestsNOT REPORTEDMercy Health [facility], KYSpecimen Description.CATHETERIZED URINEMercy Health [facility] Hospital, KYXR CHEST PORTABLEon 01-04-7094RR CHEST PORTABLEEXAMINATION: ONE XRAY VIEW OF THE CHEST 07/04/2019 [...] body of the stomach. Right internal jugular [place]-Shawn catheter appears unchanged in position in the [...] Signed by: Morro Wheeler MD 07/04/19 Final resultNoUniversity Hospitals [facility], [facility], [facility], KYXR CHEST PORTABLEEXAMINATION: ONE XRAY VIEW OF THE CHEST 07/04/2019 [...] 3 cm above the janes. A right-sided [place]-Shawn catheter terminates in the main pulmonary outflow [...] Signed by: Ana Grace MD 07/04/19 Final resultNormalMarymount Hospital, [facility], [facility], MNAPTMount Graham Regional Medical Center [phone] Coag (Bld) [Time]26.4 s Uwfejg65.5-30.5Adena Fayette Medical CenterComment on above:Performed By: #### CDP, PFA, CP, GLYHGB #### [employer] [facility] [place] [address] Baseball Pitcher: Shalom Barahona Coag (Bld) [Time]26.4 [facility], [place] Anion Gap (Calc) POCon 03-94-9427Jfzyt gap [Moles/Vol]15 mmol/L7 - 16 mmol/L [facility], KYAnion gap [Moles/Vol]18 mmol/LHigh7 - 16 mmol/[facility], MNAnion gap [Moles/Vol]17 mmol/LHigh7 - 16 mmol/[facility], MNAnion gap [Moles/Vol]19 mmol/LHigh7 - 16 mmol/[facility], KYAnion gap [Moles/Vol]22 mmol/LHigh7 - 16 mmol/[facility], KYAnion gap [Moles/Vol]23 mmol/LHigh7 - 16 mmol/[facility], KYAnion gap [Moles/Vol]12 mmol/L7 - 16 mmol/[facility]- [place], [facility]ial Blood Gas, POCon [phone] TestNOT APPLICABLEUniversity [facility]- [place], PXDUI652.0[facility] [place], [facility]- [place], KYNegative Base Excess, Fyw8YirmYxgfa Health- [place], MNO2 Device/Flow/%Adult VentilatorWayne Hospital Health- [place], [facility] DDN935.5 mmol/L21 - 28 mmol/LMohiohealth grady memorial [facility] Health- [place], MNPO O2 RIQ871 %High94 - 98 %[facility]- [place], [place]PO kFX089.5[facility]- [place], [facility] pCO2 TempNOT REPORTEDmm HgWayne Hospital Health- [place], [facility] pH7.332LowWayne Hospital [facility]- [place], [facility] pH TempNOT REPORTEDWayne Hospital [facility]- [place], [facility] EW3979.8HighWayne Hospital Health- [place], [facility] pO2 TempNOT REPORTEDmm HgWayne Hospital Health- [place], MNPositive Base Excess, Art NOT REPORTEDWay[facility] Hospital [facility]- [place], KYPt TempNOT REPORTEDWay[facility] Hospital [facility]- [place], [facility] SiteArterial LineUniversity [facility]als [facility]- [place], MNTCO2 (calc), Art24 mmol/L22 - 29 mmol/L [facility]- [place], MNAllen TestNOT APPLICABLEUniversity [facility]- [place], OHMWG956.0[facility]- [place], [facility]- [place], KYNegative Base Excess, Udz1Ojnsg Health- [place], MNO2 Device/Flow/%Adult VentilatorUniversity [facility]als [facility]- [place], [facility] VNH437.1 mmol/L21 - 28 mmol/LMohiohealth grady memorial hospital Health- [place], [facility] O2 SAT99 %High94 - 98 %[facility]- [place], [facility] dWS503.9[facility]- [place], [facility] pCO2 TempNOT REPORTEDmm HgWayne Hospital [facility]- [place], [facility] pH7.350Mer [facility]- [place], [facility] pH TempNOT REPORTEDWayne Hospital [facility]- [place], [facility] AM4247.0HighWayne Hospital Health- [place], [facility] pO2 TempNOT REPORTEDmm Hg [facility]- [place], MNPositive Base Excess, ArtNOT REPORTEDWay[facility]- [place], KYPt TempNOT REPORTEDWay[facility]- [place], [facility] SiteArterial LineMercy Health- [place], [place] TCO2 (calc), Art24 mmol/L22 - 29 mmol/LMercy Health- [place], MNAllen TestNOT REPORTEDMercy Health- [place], [id number] REPORTEDMercy [facility]- [place], MNModeNOT REPORTED [facility]- [place], KYNegative Base Excess, ArtNOT REPORTEDMercy [facility]- [place], MNO2 Device/Flow/%NOT REPORTEDMercy [facility]- [place], MNPOC CTR200.0 mmol/L21 - 28 mmol/L [facility] [place], [place]OC O2 LEK060 %High94 - 98 %[facility]- [place], [place]OC zII028.4 [facility]- [place], MNPO pCO2 TempNOT REPORTEDmm HgMercy Health- [place], MNPOC pH 7.406[facility]- [place], [place]NPOC pH TempNOT REPORTEDMercy Health- [place], [place]NPOC AY9906.9 HighMercy Health- [place], MNPO pO2 TempNOT REPORTEDmm HgMercy Health- [place], [place] Positive Base Excess, Glc4Ltgkx Health- [place], KYPt TempNOT REPORTEDMercy Health- [place], [facility] SiteNOT REPORTEDMercy Health- [place], MNTCO2 (calc), Art27 mmol/L22 - 29 mmol/LMercy Health- [place], JERRYAllen TestNOT REPORTEDMercy [facility]- [place], EULWS9GQI REPORTEDMercy Health- [place], KYModeNOT REPORTEDMercy [facility]- [place], KYNegative Base Excess, Ign4ZkqjEczhh Health- [place], MNO2 Device/Flow/%NOT REPORTEDMercy Health- [place], MNPO QVI488.0 mmol/LLow21 - 28 mmol/LMercy Health- [place], MNPO O2 OUN334 % High94 - 98 %[facility]- [place], [place]NPOC bRO723.9[facility]- [place], MNPO pCO2 Temp NOT REPORTEDmm HgMercy Health- [place], MNPOC pH7.297LowMercy Health- [place], MNPO pH TempNOT REPORTEDMercy Health- [place], MNPO EM3876.2HighMercy Health- [place], [place]PO pO2 TempNOT REPORTEDmm HgMercy Health- [place], MNPositive Base Excess, ArtNOT REPORTED [facility]- [place], KYPt TempNOT REPORTEDMercy Health- [place], [facility] SiteNOT REPORTEDMercy Health- [place], KYTCO2 (calc), Art20 mmol/LLow22 - 29 mmol/LMercy Health- [place], JERRYAllen TestNOT REPORTEDMercy [facility]- [place], [id number] REPORTEDMercy [facility]- [place], KYModeNOT REPORTEDMer[facility]- [place], KYNegative Base Excess, Xju7Buda [facility]- [place], MNO2 Device/Flow/%NOT REPORTEDMercy [facility]- [place], MNPO CJE823.6 mmol/LLow21 - 28 mmol/LMercy Health- [place], MNPO O2 XPP055 %High94 - 98 %[facility]- [place], MNPO ySM158.9LowMercy Health- [place], [facility] pCO2 TempNOT REPORTEDmm Hg [facility]- [place], MNPOC pH7.409[facility]- [place], MNPO pH TempNOT REPORTEDMer[facility]- [place], [place]NPOC ZA0902.8HighMercy Health- [place], [facility] pO2 TempNOT REPORTEDmm Hg [facility]- [place], MNPositive Base Excess, ArtNOT REPORTEDMer[facility]- [place], KYPt TempNOT REPORTEDMer[facility]- [place], [facility] SiteNOT REPORTEDMer[facility]- [place], [place] TCO2 (calc), Art21 mmol/LLow22 - 29 mmol/LMercy Health- [place], JERRYAllen TestNOT REPORTEDMer[facility]- [place], [id number] REPORTEDMer[facility]- [place], KYModeNOT REPORTED [facility]- [place], KYNegative Base Excess, Wgl83ZnpbQwrss Health- [place], KYO2 Device/Flow/%NOT REPORTEDMercy [facility]- [place], MNPOC EXK236.5 mmol/LLow21 - 28 mmol/LMercy [facility]- [place], MNPO O2 LKN494 %High94 - 98 %[facility]- [place], [place]NPOC cQH473.9[facility]- [place], MNPO pCO2 TempNOT REPORTEDmm HgMercy Health- [place], [place] POC pH7.209LowMercy Health- [place], MNPO pH TempNOT REPORTEDMercy Health- [place], [place]NPOC II9250.9HighMercy Health- [place], [facility] pO2 TempNOT REPORTEDmm HgMercy Health- [place], MNPositive Base Excess, ArtNOT REPORTEDMercy [facility]- [place], KYPt TempNOT REPORTED [facility] [place], [facility] SiteNOT REPORTEDMercy [facility]- [place], KYTCO2 (calc), Art 19 mmol/LLow22 - 29 mmol/LMercy [facility]- [place], KYAllen TestNOT REPORTEDMer[facility]- [place], UFFYG976.0[facility]- [place], KYModeSIMV(PRVC)+ PSMercy Health- [place], [place] Negative Base Excess, Nzr8HwwtPdedr Health- [place], KYO2 Device/Flow/%Adult VentilatorMercy Health- [place], [place]NPOC SBA072.4 mmol/L21 - 28 mmol/LM[facility]- [place], MNPO O2 UBT036 %High94 - 98 %[facility]- [place], [place]NPOC fUX971.7[facility]- [place], MNPO pCO2 TempNOT REPORTEDmm HgMercy Health- [place], MNPOC pH7.329LowMercy Health- [place], MNPO pH TempNOT REPORTEDMer[facility]- [place], MNPOC NL1538.9HighMercy Health- [place], MNPOC pO2 TempNOT REPORTEDmm HgMercy Health- [place], KYPositive Base Excess, Art NOT REPORTEDMer[facility]- [place], KYPt TempNOT REPORTEDMer[facility]- [place], [facility] SiteNOT REPORTEDMercy [facility]- [place], KYTCO2 (calc), Art23 mmol/L22 - 29 mmol/LM[facility]cy [facility]- [place], JERRYAllen TestNOT REPORTEDMer[facility]- [place], [id number] REPORTEDMer[facility]- [place], KYModeNOT REPORTEDMer[facility]- [place], KYNegative Base Excess, Jcs1Agyx [facility]- [place], KYO2 Device/Flow/%NOT REPORTEDMer[facility]- [place], MNPOC YZR198.1 mmol/L21 - 28 mmol/LMercy [facility]- [place], MNPOC O2 SEH600 %High94 - 98 %[facility]- [place], [place]OC dIE678.6[facility]- [place], MNPO pCO2 TempNOT REPORTEDmm Hg [facility]- [place], MNPOC pH7.378[facility]- [place], [place]NPOC pH TempNOT REPORTEDMer[facility]- [place], [place]NPOC VR4721.2HighMercy Health- [place], [place]NPOC pO2 TempNOT REPORTEDmm Hg [facility]- [place], KYPositive Base Excess, ArtNOT REPORTEDMer[facility]- [place], KYPt TempNOT REPORTEDMer[facility]- [place], [facility] SiteNOT REPORTEDMercy [facility]- [place], [place] TCO2 (calc), Art23 mmol/L22 - 29 mmol/LMercy [facility]- [place], JERRYAllen TestNOT REPORTEDMer[facility]- [place], VAWPV8HJG REPORTEDMer[facility]- [place], KYModeNOT REPORTED [facility]- [place], KYNegative Base Excess, ArtNOT REPORTEDMercy [facility]- [place], KYO2 Device/Flow/%NOT REPORTEDMer[facility]- [place], MNPOC IUI592.0 mmol/L21 - 28 mmol/L [facility] [place], [place]NPOC O2 TYR373 %High94 - 98 %[facility]- [place], [place]OC kUI369.5 [facility]- [place], MNPO pCO2 TempNOT REPORTEDmm HgMercy Health- [place], MNPOC pH 7.442[facility]- [place], [place]NPOC pH TempNOT REPORTEDMer[facility]- [place], [place]NPOC YX4497.0 HighMercy Health- [place], MNPO pO2 TempNOT REPORTEDmm HgMercy Health- [place], [place] Positive Base Excess, Neu8Kwkwe Health- [place], KYPt TempNOT REPORTEDMercy [facility]- [place], [facility]YMorningside [facility] SiteNOT REPORTEDMer[facility]- [place], KYTCO2 (calc), Art28 mmol/L22 - 29 mmol/LM[facility]- [place], JERRYAllen TestNOT REPORTEDMer[facility]- [place], GLASP9NLH REPORTEDMer[facility]- [place], KYModeNOT REPORTEDMer[facility]- [place], KYNegative Base Excess, ArtNOT REPORTEDMer[facility]- [place], MNO2 Device/Flow/%NOT REPORTEDMer[facility]- [place], MNPOC TOW899.6 mmol/L21 - 28 mmol/LM[facility]- [place], MNPOC O2 GEP960 %High94 - 98 %[facility]- [place], MNPO gSO341.5[facility]- [place], MNPO pCO2 Temp NOT REPORTEDmm HgMercy Health- [place], MNPOC pH7.425[facility]- [place], MNPOC pH Temp NOT REPORTEDMer[facility]- [place], MNPOC TA4178.7HighMercy Health- [place], MNPOC pO2 Temp NOT REPORTEDmm HgMercy Health- [place], KYPositive Base Excess, Vvd9Qcrnb Health- [place], KYPt TempNOT REPORTEDMer[facility]- [place], [facility] SiteNOT REPORTEDMer[facility]- [place], MNTCO2 (calc), Art26 mmol/L22 - 29 mmol/LM[facility]- [place], MNAllen TestNOT REPORTEDMer[facility]- [place], [id number] REPORTEDMer[facility]- [place], KYModeNOT REPORTED [facility]- [place], KYNegative Base Excess, ArtNOT REPORTEDMer[facility]- [place], KYO2 Device/Flow/%NOT REPORTEDMer[facility]- [place], MNPOC LZC500.1 mmol/L21 - 28 mmol/L [facility] [place], [place]NPOC O2 EGR747 %High94 - 98 %[facility]- [place], [place]OC tOA706.5 [facility]- [place], [place]NPOC pCO2 TempNOT REPORTEDmm HgMercy Health- [place], MNPOC pH 7.434[facility]- [place], [place]NPOC pH TempNOT REPORTEDMer[facility]- [place], MNPOC WA8788.9 HighMercy Health- [place], MNPO pO2 TempNOT REPORTEDmm HgMercy Health- [place], [place] Positive Base Excess, Sbn6Vzjzg Health- [place], KYPt TempNOT REPORTEDMer[facility]- [place], [facility] SiteNOT REPORTEDMer[facility]- [place], KYTCO2 (calc), Art26 mmol/L22 - 29 mmol/LMer[facility]- [place], KYAllen TestNOT REPORTEDMer[facility]- [place], KNERE6VRX REPORTEDMer[facility]- [place], KYModeNOT REPORTEDMer[facility]- [place], KYNegative Base Excess, Fup1Memtk [facility]- [place], KYO2 Device/Flow/%NOT REPORTEDMer[facility]- [place], [place] POC LCY544.8 mmol/L21 - 28 mmol/LM[facility]- [place], MNPO O2 XSJ967 %High94 - 98 %[facility]- [place], [place]NPOC vRD171.0[facility]- [place], MNPO pCO2 TempNOT REPORTEDmm HgMercy Health- [place], MNPOC pH7.382[facility]- [place], MNPO pH TempNOT REPORTED [facility]- [place], [place]OC XM0567.6HighMercy Health- [place], [place]NPOC pO2 TempNOT REPORTED mm HgMercy Health- [place], KYPositive Base Excess, ArtNOT REPORTEDMer[facility]- [place], KYPt TempNOT REPORTEDMer[facility]- [place], [facility] SiteNOT REPORTEDMer[facility]- [place], KYTCO2 (calc), Art25 mmol/L22 - 29 mmol/LMercy [facility]- [place], KYAllen TestNOT REPORTEDMer[facility]- [place], PFYZU1PEX REPORTEDMer[facility]- [place], KYModeNOT REPORTED [facility]- [place], KYNegative Base Excess, Bzn4Aivlf Health- [place], MNO2 Device/Flow/%NOT REPORTEDMer[facility]- [place], MNPOC WAM403.2 mmol/L21 - 28 mmol/L [facility]- [place], MNPOC O2 XPC702 %High94 - 98 %[facility]- [place], [place]NPOC yOV963.1 [facility]- [place], [place]NPOC pCO2 TempNOT REPORTEDmm HgMercy Health- [place], [place]NPOC pH 7.340LowMercy Health- [place], MNPOC pH TempNOT REPORTEDMer[facility]- [place], MNPOC PO2 342.7HighMercy Health- [place], [place]NPOC pO2 TempNOT REPORTEDmm HgMercy Health- [place], [place] Positive Base Excess, ArtNOT REPORTEDMer[facility]- [place], KYPt TempNOT REPORTED [facility]- [place], JERRYKaiser Foundation Hospitalle SiteNOT REPORTEDMer[facility]- [place], KYTCO2 (calc), Art 25 mmol/L22 - 29 mmol/LMercy [facility]- [place], KYAllen TestNOT REPORTEDMer[facility]- [place], [id number] REPORTEDMer[facility]- [place], KYModeNOT REPORTEDMer[facility]- [place], [place] Negative Base Excess, Jnx1Eckpb Health- [place], KYO2 Device/Flow/%NOT REPORTEDMer[facility]- [place], MNPOC EMF450.3 mmol/L21 - 28 mmol/LM[facility]- [place], MNPOC O2 DKU406 %High94 - 98 %[facility]- [place], [place]NPOC vUR347.9[facility]- [place], MNPO pCO2 Temp NOT REPORTEDmm HgMercy Health- [place], MNPOC pH7.421[facility]- [place], MNPOC pH Temp NOT REPORTEDMer[facility]- [place], KYPOC RA2625.8HighMercy Health- [place], KYPOC pO2 Temp NOT REPORTEDmm HgMercy Health- [place], KYPositive Base Excess, ArtNOT REPORTEDMer[facility]- [place], KYPt TempNOT REPORTEDMer[facility]- [place], KYSample SiteNOT REPORTED [facility]- [place], KYTCO2 (calc), Art24 mmol/L22 - 29 mmol/LMercy [facility]- [place], [place] BASIC METABOLIC PANELon [phone] gap [Moles/Vol]21 mmol/LHigh9 - 17 mmol/LMercy [facility]- [place], KYBun/Cre RatioNOT REPORTEDMercy Health- [place], KYCalcium [Mass/Vol]9.3 mg/dL8.6 - 10.4 mg/dLMercy Health- [place], KYChloride [Moles/Vol]113 mmol/LHigh98 - 107 mmol/LMercy [facility]- [place], KYCO2 [Moles/Vol]19 mmol/LLow20 - 31 mmol/LM[facility]cy [facility]- [place], KYCreatinine [Mass/Vol]1.35 mg/dLHigh0.5 - 0.9 mg/dL [facility]- [place], KYGFR Fjtgfqbh01 mL/minLow>60[facility]- [place], KYGFR CommentMercy Health- [place], KYGFR Non- Hhomtxjn25 mL/minLow>60[facility]- [place], KYGFR StagingNOT REPORTEDMer[facility]- [place], KYGlucose [Mass/Vol]178 mg/dLHigh 70 - 99 mg/dLMercy Health- [place], KYInterpretation and review of laboratory results AbnormalMercy Health- [place], KYPotassium [Moles/Vol]3.9 mmol/L3.7 - 5.3 mmol/LM[facility]- [place], KYSodium [Moles/Vol]153 mmol/AWiam318 - 144 mmol/LMercy [facility]- [place], KYUrea nitrogen [Mass/Vol]18 mg/dL8 - 23 mg/dLAdena Fayette Medical Centercy Health- [place], KYBL GAS,MIX-RUFINO,EXTon 27-96-3326DyOQ, Mixed, Extended0.8 %0 - 5 %[facility]- [place], KYHemoglobin, Mixed, Sjcmuguo12.6 g/dL12 - 18 g/dLAdena Fayette Medical Centercy Health- [place], KYMetHb, Mixed, Extended0.8 %0 - 1.5 %[facility]- [place], KYO2 Content, Mixed, Kufzjggz30 [facility]- [place], KYO2 Sat, Mixed, Wqoyzskb84.6 %60 - 80 %[facility]- [place], [place] Oxygen Tdebri18Zlhbt Health- [place], KYBasic Metabolic Panelon 23-09-4781Elfnq gap [Moles/Vol]19 mmol/LHigh9 - 17 mmol/LMercy [facility]- [place], KYBun/Cre RatioNOT REPORTEDMercy Health- [place], KYCalcium [Mass/Vol]9.8 mg/dL8.6 - 10.4 mg/dLMercy Health- [place], KYChloride [Moles/Vol]113 mmol/LHigh98 - 107 mmol/LMercy [facility]- [place], KYCO2 [Moles/Vol]21 mmol/L20 - 31 mmol/LMer[facility]- [place], KYCreatinine [Mass/Vol]1.16 mg/dLHigh0.5 - 0.9 mg/dLMercy Health- [place], KYGFR 56 mL/minLow>60[facility]- [place], KYGFR CommentMercy Health- [place], KYGFR Non- Dtvvffge63 mL/minLow>60[facility]- [place], KYGFR StagingNOT REPORTEDMercy Health- [place], KYGlucose [Mass/Vol]157 mg/xAIori14 - 99 mg/dLMercy Health- [place], [place] Interpretation and review of laboratory resultsAbnormalMercy Health- [place], [place] Potassium [Moles/Vol]3.6 mmol/LLow3.7 - 5.3 mmol/LMer[facility]- [place], KYSodium [Moles/Vol]153 mmol/YYtft470 - 144 mmol/LMer[facility]- [place], KYUrea nitrogen [Mass/Vol]16 mg/dL8 - 23 mg/dLMercy Health- [place], KYAnion gap [Moles/Vol]17 mmol/L 9 - 17 mmol/LMer[facility]- [place], KYBun/Cre RatioNOT REPORTEDMercy Health- [place], [place] Calcium [Mass/Vol]8.9 mg/dL8.6 - 10.4 mg/dLMercy Health- [place], KYChloride [Moles/Vol]107 mmol/L98 - 107 mmol/LMer[facility]- [place], KYCO2 [Moles/Vol]17 mmol/L Low20 - 31 mmol/[facility], KYCreatinine [Mass/Vol]1.24 mg/dLHigh0.5 - 0.9 mg/dLMercy Health [facility], KYGFR Dbujpfle88 mL/minLow>60[facility], KYGFR CommentMercy Health [facility], KYGFR Non- Ajvsopau61 mL/minLow>60 [facility], KYGFR StagingNOT REPORTEDMercy Health [facility], KYGlucose [Mass/Vol]178 mg/ySLwzu66 - 99 mg/dLMercy Health [facility], KYPotassium [Moles/Vol]4.3 mmol/L3.7 - 5.3 mmol/[facility], KYSodium [Moles/Vol]141 mmol/L135 - 144 mmol/[facility], KYUrea nitrogen [Mass/Vol]17 mg/dL8 - 23 mg/dLMercy Health [facility], KYBasic Metabolic Profon [phone]/CRE RatioNOT REPORTEDNormal 20Adena Fayette Medical CenterComment on above:Performed By: #### CDP, PFA, CP, GLYHGB #### [employer] [address] [place] [address] Baseball Pitcher: ZANA Barahonataging:NOT REPORTEDNormalAdena Fayette Medical CenterComment on above:Performed By: #### CDP, PFA, CP, GLYHGB #### [employer] [address] [place] [address] Baseball Pitcher: Savage Jcaob MD(cont.)[facility] Comment on above:Result Comment: Average GFR for 70 or more years old: 75 mL/min/1.73sq m Chronic Kidney Disease: <60 mL/min/1.73sq m Kidney failure: <15 mL/min/1.73sq m eGFR calculated using average adult body mass. Additional eGFR calculator available at: http://www.[employer]/multiple_crcl_2012.htmPerformed By: #### CDP, PFA, CP, GLYHGB #### [employer] [address] [place] [address] Baseball Pitcher: Savage Jacob MDAnion gap [Moles/Vol]17 mmol/LNormal9-17Aden[facility] Fayette Medical CenterComment on above:Performed By: #### CDP, PFA, CP, GLYHGB #### [facility] [employer] [address] [place] [address] Baseball Pitcher: Savage Jacob MDCalcium [Mass/Vol]8.9 mg/dLNormal8.6-10.4A[facility] Fayette Medical CenterComment on above:Performed By: #### CDP, PFA, CP, GLYHGB #### [facility] [employer] [address] [place] [address] Baseball Pitcher: Savage Jacob MDChloride [Moles/Vol]107 mmol/CKvpeeh75-066ZmwxgAdena Fayette Medical CenterComment on above:Performed By: #### CDP, PFA, CP, GLYHGB #### [facility] [employer] [address] [place] [address] Baseball Pitcher: Savage Jacob MDCO2 [Moles/Vol]17 mmol/HLji54-03SrkalAdena Fayette Medical CenterComment on above:Performed By: #### CDP, PFA, CP, GLYHGB #### [facility] [address] [place] [id number] Baseball Pitcher: Savage Jacob MDCreatinine [Mass/Vol]1.24 mg/dLHigh0.50-0.90 [facility]ayette Medical CenterComment on above:Performed By: #### CDP, PFA, CP, GLYHGB #### [facility] [address] [place] [address] Baseball Pitcher: SALLY Barahona, Amer52 mL/minLow>60A[facility] Fayette Medical CenterComment on above:Performed By: #### CDP, PFA, CP, GLYHGB #### [facility] [address] [place] [address] Baseball Pitcher: Savage Jacob MDGFR,non Amer43 mL/minLow>60[facility] Medical CenterComment on above:Performed By: #### CDP, PFA, CP, GLYHGB #### [address] [address] Baseball Pitcher: Savage Jacob MDGlucose [Mass/Vol]178 mg/qDTvur37-08ImqfoKeck Hospital of USCComment on above:Performed By: #### CDP, PFA, CP, GLYHGB #### [place] [address] Baseball Pitcher: HALEY Barahonaotassium [Moles/Vol]4.3 mmol/LNormal3.7-5.3 [facility] Fayette Medical CenterComment on above:Performed By: #### CDP, PFA, CP, GLYHGB #### [address] [address] Baseball Pitcher: ZANA Barahonaodium [Moles/Vol]141 mmol/PWqbsqp396-205RdujuAdena Fayette Medical CenterComment on above:Performed By: #### CDP, PFA, CP, GLYHGB #### [address] [address] Baseball Pitcher: Savage Jacob MDUrea nitrogen [Mass/Vol]17 mg/dLNormal8-23Adena Fayette Medical CenterComment on above:Performed By: #### CDP, PFA, CP, GLYHGB #### [address] [address] Baseball Pitcher: Savage Jacob MDBUN/CRE RatioNOT REPORTEDNormal9-20Adena Fayette Medical CenterComment on above:Performed By: #### CDP, PFA, CP, GLYHGB #### [facility] [address] [place] [address] Baseball Pitcher: ZANA Barahonataging:NOT REPORTEDNoFort Hamilton HospitalComment on above:Performed By: #### CDP, PFA, CP, GLYHGB #### [facility] [address] [place], [place] [id number] Baseball Pitcher: CASEY BarahonaALCIUM, IONIC (POC)on [id number] Ionized Calcium1.25 mmol/L1.15 - 1.33 mmol/LMercy Health- [place], KYPOC Ionized Calcium1.39 mmol/LHigh1.15 - 1.33 mmol/LMercy Health- [place], [place]YPOC Ionized Calcium1.47 mmol/L High1.15 - 1.33 mmol/LMercy [facility]- [place], [place] Ionized Calcium1.19 mmol/L1.15 - 1.33 mmol/LMercy [facility]- [place], [place]YPOC Ionized Calcium0.94 mmol/LLow1.15 - 1.33 mmol/LMercy Health- [place], [place]YPOC Ionized Calcium1.11 mmol/LLow1.15 - 1.33 mmol/L [facility]- [place], [place] Ionized Calcium1.22 mmol/L1.15 - 1.33 mmol/LMercy [facility]- [place], [place] Ionized Calcium1.29 mmol/L1.15 - 1.33 mmol/LMercy [facility]- [place], [place] Ionized Calcium0.96 mmol/LLow1.15 - 1.33 mmol/LMercy [facility]- [place], [place] Ionized Calcium0.98 mmol/LLow1.15 - 1.33 mmol/LMercy [facility]- [place], [place] Ionized Calcium0.94 mmol/LLow1.15 - 1.33 mmol/LMercy [facility]- [place], [place] Ionized Calcium 0.99 mmol/LLow1.15 - 1.33 mmol/LMer[facility]- [place], [place] Ionized Calcium1.16 mmol/L1.15 - 1.33 mmol/LMercy [facility]- [place], [place] Ionized Calcium1.16 mmol/L1.15 - 1.33 mmol/LMercy [facility]- [place], KYCALCIUM, IONIZEDon 14-03-1499Gdwdkty, Ion1.14 mmol/L1.13 - 1.33 mmol/LM[facility]- [place], KYCalcium, Ion1.32 mmol/L1.13 - 1.33 mmol/LMbarberton citizens hospitaly [facility]- [place], KYCalcium, Ion1.22 mmol/L1.13 - 1.33 mmol/LMbarberton citizens hospitaly [facility]- [place], KYCBCon 10-01-8062Czzpsdliusg distribution width (RBC) [Ratio]15.0 %High 11.8-14.4Adena Fayette Medical CenterComment on above:Performed By: #### CDP, PFA, CP, GLYHGB #### [facility] [address] [place] [address] Baseball Pitcher: Savage Jacob MDHematocrit (Bld) [Volume fraction]55.5 %High 36.3-47.1MKeck Hospital of USCComment on above:Performed By: #### CDP, PFA, CP, GLYHGB #### [facility] [address] [place] [address] Baseball Pitcher: Savage Jacob MDHemoglobin (Bld) [Mass/Vol]18.8 g/dLHigh 11.9-15.1MKeck Hospital of USCComment on above:Performed By: #### CDP, PFA, CP, GLYHGB #### [facility] [address] [place] [address] Baseball Pitcher: ALISSA BarahonaCH (RBC) [Entitic mass]28.4 ibCcmpzd52.2-33.5 [facility] Medical CenterComment on above:Performed By: #### CDP, PFA, CP, GLYHGB #### [facility] [address] [place] [address] Baseball Pitcher: JAIME BarahonaC (RBC) [Mass/Vol]33.9 g/oFAjqtic51.4-34.8 [facility] Medical CenterComment on above:Performed By: #### CDP, PFA, CP, GLYHGB #### [address] [address] Baseball Pitcher: ALISSA BarahonaCV (RBC) [Entitic vol]83.7 sVWukpyi55.6-102.9 [facility] Medical CenterComment on above:Performed By: #### CDP, PFA, CP, GLYHGB #### [address] [address] Baseball Pitcher: ILANA Barahona Automated0.0 per 100 WBCNormal0.0Adena Fayette Medical CenterComment on above:Performed By: #### CDP, PFA, CP, GLYHGB #### [address] [address] Baseball Pitcher: Taylor Barahonatejimbo (Bld) [#/Vol]See Reflexed IPF Result Jfnbci292-681CjpisAdena Fayette Medical CenterComment on above:Performed By: #### CDP, PFA, CP, GLYHGB #### [facility] [address] [place] [address] Baseball Pitcher: MELISSA Barahona (Bld) [#/Vol]6.63 10*6/uLHigh3.95-5.11A[facility] Fayette Medical CenterComment on above:Performed By: #### CDP, PFA, CP, GLYHGB #### [address] [address] Baseball Pitcher: PETR Barahona (Bld) [#/Vol]21.5 10*3/uLHigh3.5-11.3MKeck Hospital of USCComment on above:Performed By: #### CDP, PFA, CP, GLYHGB #### [facility] [address] [place] [address] Baseball Pitcher: Taylor Barahonatemartine mean volume (Bld) [Entitic vol]NOT REPORTEDNormal8.1-13.5Aden[facility] Fayette Medical CenterComment on above:Performed By: #### CDP, PFA, CP, GLYHGB #### [facility] [address] [id number] Baseball Pitcher: Savage Jacob MDErythrocyte distribution width (RBC) [Ratio]15.0 %High11.8 - 14.4 %[facility], MNHematocrit (Bld) [Volume fraction]55.5 % High36.3 - 47.1 %[facility], MNHemoglobin (Bld) [Mass/Vol]18.8 g/dLHigh 11.9 - 15.1 g/dLMercy Health [facility], MNInterpretation and review of laboratory resultsAbnormalMercy Health [facility], [facility] MIAMIH (RBC) [Entitic mass]28.4 pg25.2 - 33.5 pg [facility], MNMCHC (RBC) [Mass/Vol]33.9 g/dL28.4 - 34.8 g/dLMercy Health Kings [facility], [facility] MIAMIV (RBC) [Entitic vol]83.7 fL82.6 - 102.9 fLMercy Health Kings [facility], MNPlatelet mean volume (Bld) [Entitic vol]NOT REPORTED8.1 - 13.5 fLMercy Health Kings [facility], [place] Platelets (Bld) [#/Vol]See Reflexed IPF ResultMercy Health [facility], MNRBC (Bld) [#/Vol]6.63 10*6/uLHigh3.95 - 5.11 m/uLMercy Health [facility], MNWBC (Bld) [#/Vol]21.5 10*3/uLHighMercy Health Kings [facility] Hospital, MNWBC (Bld) [#/Vol]0.0 10*3/uL0.0 per 100 WBCMercy Health Kings Mills Hospital, MNCB WITH AUTO DIFFERENTIALon 86-29-9247Dnnucyeh Eos #0.14[facility]- [place], MNAbsolute Immature Granulocyte0.21[facility]- [place], MNAbsolute Lymph #1.73[facility]- [place], MNAbsolute [place] #1.07[facility]- [place], MNBasophils0 %0 - 2 %[facility], KYBasophils (Bld) [#/Vol]0.06 10*3/uLWayne Hospital Health- [place], KYDifferential TypeNOT REPORTEDUniversity Hospitals [facility]- [place], KYEosinophils/100 WBC (Bld) 1 %1 - 4 %[facility]- [place], KYErythrocyte distribution width (RBC) [Ratio]14.5 % High11.8 - 14.4 %[facility]- [place], KYHematocrit (Bld) [Volume fraction]37.0 % 36.3 - 47.1 %[facility]- [place], KYHemoglobin (Bld) [Mass/Vol]12.8 g/dL11.9 - 15.1 g/dLUniversity Hospitals Ahuja [facility]- [place], KYImmature Granulocytes1 %Dmqu9CeivyUniversity Hospitals Ahuja Medical Center- [place], [place] Interpretation and review of laboratory resultsAbnormalUniversity Hospitals Ahu[facility]- [place], [place] Pjfyfpsccir91 %Low24 - 43 %[facility]- [place], KYMCH (RBC) [Entitic mass]29.2 pg 25.2 - 33.5 pgUniversity Hospitals Ahuja [facility] Center- [place], KYMCHC (RBC) [Mass/Vol]34.6 g/dL28.4 - 34.8 g/dL [facility]- [place], KYMCV (RBC) [Entitic vol]84.3 fL82.6 - 102.9 fLWayne Hospital Health- [place], KYMonocytes6 %3 - 12 %[facility]- [place], KYPlatelet mean volume (Bld) [Entitic vol]8.9 fL8.1 - 13.5 fLUniversity Hospitals Ahuja Medical Center- [place], KYPlatelets (Bld) [#/Vol]75 10*3/uLLowUniversity Hospitals Ahuja Medical Center- [place], KYPlatelets (Bld) [#/Vol]NOT REPORTEDUniversity Hospitals [facility]- [place], KYRBC (Bld) [#/Vol]4.39 10*6/uL3.95 - 5.11 m/uLWayne Hospital Health- [place], KYRBC morphology finding Nom (Bld)ANISOCYTOSIS PRESENTUniversity Hospitals Ahuja Medical Center- [place], KYSeg Ozhsfrvbmdz96 %High36 - 65 %[facility]- [place], KYSegs Hkelmlxo58.05HighWayne Hospital Health- [place], KYWBC (Bld) [#/Vol]17.3 10*3/uLCurahealth - [facility]- [place], KYWBC (Bld) [#/Vol]0.0 10*3/uL0.0 per 100 WBCMercy Health- [place], KYWBC MorphologyNOT REPORTED [facility]- [place], KYCHLORIDE (POC)on 72-90-7550SFN Hlztnage841 mmol/LHigh98 - 107 mmol/LMercy Health- [place], KYPOC Udrqmooj994 mmol/LHigh98 - 107 mmol/LM[facility]- [place], KYPOC Fbbnqksy230 mmol/LHigh98 - 107 mmol/LM[facility]- [place], KYPOC Jtatwgld650 mmol/LHigh98 - 107 mmol/LM[facility]- [place], [place]YPOC Jnlcssln377 mmol/L 98 - 107 mmol/LM[facility]- [place], [place]YPOC Ipavkhgw745 mmol/L98 - 107 mmol/LM[facility]- [place], [place]YPOC Thaxknpm191 mmol/LHigh98 - 107 mmol/LMer[facility]- [place], [place] Calcium, Ionicon 95-05-9763Tvyppcj [Mass/Vol]1.22 mmol/LNormal1.13-1.33Adena Fayette Medical CenterComment on above:Performed By: #### CDP, PFA, CP, GLYHGB #### [facility] [address] [place] [address] Baseball Pitcher: Janae Barahona W/GFR Point of Careon 65-57-5079IET CommentWayne Hospital Health- [place], KYGFR Oqnmlft72 mL/minLow>60[facility]- [place], KYGFR Non- Rqcyqgta90 mL/minLow>60[facility]- [place], KYPOC Creatinine1.28 mg/dL High0.51 - 1.19 mg/dLWayne Hospital Health- [place], KYGFR CommentMer Health- [place], KYGFR Nopoovc95 mL/minLow>60[facility]- [place], KYGFR Non- Jiegypya57 mL/minLow >60[facility]- [place], KYPOC Creatinine1.17 mg/dL0.51 - 1.19 mg/dLWayne Hospital Health- [place], KYGFR Comment>60>60 mL/minWayne Hospital Health- [place], KYGFR CommentMer Health- [place], KYGFR Non- Qmkttqph16 mL/minLow>60[facility]- [place], KYPOC Creatinine1.04 mg/dL0.51 - 1.19 mg/dLUniversity Hospitals [facility]- [place], KYGFR Comment>60>60 mL/minUniversity Hospitals [facility]- [place], KYGFR CommentDayton [facility] [place], KYGFR Non- Isanwxqk71 mL/minLow>60 [facility]- [place], KYPOC Creatinine0.99 mg/dL0.51 - 1.19 mg/dLDayton Children'S Hospital [place], KYGFR CommentDayton Children[facility] [place], KYGFR Comment>60>60 mL/minUniversity Hospitals [facility]- [place], KYGFR Non->60>60 mL/minUniversity Hospitals [facility]- [place], KYPOC Creatinine0.91 mg/dL 0.51 - 1.19 mg/dLUniversity Hospitals [facility]- [place], KYGFR Comment>60>60 mL/minUniversity Hospitals [facility]- [place], KYGFR CommentUniversity Hospitals [facility]- [place], KYGFR Non- Ogeoctgl99 mL/minLow>60[facility]- [place], KYPOC Creatinine1.03 mg/dL0.51 - 1.19 mg/dLMercy Health [facility], [place] FIBRINOGENon 33-92-2435Pvhdpujfev<80Critically uio089 - 420 mg/dLMercy Health [facility], KYInterpretation and review of laboratory resultsAbnormalMercy Health [facility], KYFibrinogenon 24-71-8529Eajnedjxvc161 mg/lZEvezgt419-324CwgezAdena Fayette Medical CenterComment on above:Performed By: #### CDP, PFA, CP, GLYHGB #### [facility] [address] [place] [address] Baseball Pitcher: Savage Jacob MDFibrinogen151 mg/dL140 - 420 mg/dLMercy Health Kings [facility], KYHemoglobin and hematocrit, bloodon 03-40-0523LLA Wgmrkaquuj58 %Low36 - 46 %[facility], KYPOC Zoswgkmojo69.0 g/dLLow12 - 16 g/dLMercy Health [facility], [place] POC Eyelfsyiyy01 %36 - 46 %[facility], KYPOC Yumekbeypi28.5 g/dL12 - 16 g/dLMercy Health Kings [facility], KYPOC Fngkdutzmd42 %36 - 46 %[facility], MNPOC Bxajzopddq69.6 g/dL12 - 16 g/dLWayne Hospital Health- [place], [place]YPOC Jshuqzwtxs48 %36 - 46 % [facility]- [place], [place]YPOC Kktyyyoxkx88.2 g/dL12 - 16 g/dLWayne Hospital [facility]- [place], [place]YPOC Adtrxmcozd42 %Low36 - 46 %[facility]- [place], [place]YPOC Qihbydmwfs82.3 g/dLLow12 - 16 g/dLWayne Hospital Health- [place], [place]YPOC Vwhmunjrwj17 %Low36 - 46 %[facility]- [place], [place]YPOC Hemoglobin7.0 g/dLCritically low12 - 16 g/dLWayne Hospital Health- [place], [place]YPOC Hkvrlckqqp89 %Low36 - 46 %[facility]- [place], [place]YPOC Sghvwnkczh62.6 g/dLLow12 - 16 g/dLWayne Hospital Health- [place], [place]YPOC Dwzhrnzhcz48 %Low36 - 46 %[facility]- [place], KYPOC Hemoglobin 8.7 g/dLLow12 - 16 g/dLWayne Hospital [facility]- [place], [place]YPOC Tlmzgykeie69 %Low36 - 46 %[facility]- [place], [place]YPOC Hemoglobin7.4 g/dLLow12 - 16 g/dLWayne Hospital [facility]- [place], [place]YPOC Nxvhhirkgf18 %Low36 - 46 %[facility]- [place], [place]YPOC Hemoglobin8.0 g/dLLow12 - 16 g/dLWayne Hospital [facility]- [place], [place]YPOC Tnyyktesva52 %Low36 - 46 %[facility]- [place], [place]YPOC Hemoglobin8.1 g/dLLow12 - 16 g/dLWayne Hospital [facility]- [place], [place]YPOC Qngkcyifrm09 %Low36 - 46 %[facility]- [place], KYPOC Hemoglobin8.4 g/dLLow12 - 16 g/dLWayne Hospital [facility]- [place], [place]YPOC Gocwoxmbdm07 %Low36 - 46 %[facility]- [place], [place]YPOC Hemoglobin9.0 g/dLLow12 - 16 g/dLWayne Hospital [facility]- [place], [place]YPOC Qkrhsuxqxx20 %Low36 - 46 %[facility]- [place], [place] POC Hemoglobin9.2 g/dLLow12 - 16 g/dLWayne Hospital [facility]- [place], KYPOC Yulrjzzwfa32 %Low36 - 46 %[facility]- [place], KYPOC Hemoglobin8.9 g/dLLow12 - 16 g/dLWayne Hospital Health- [place], KYHepatic Function Panelon 98-63-5967Sipmqak [Mass/Vol]3.2 g/dLLow3.5 - 5.2 g/dLUniversity Hospitals [facility]- [place], KYAlbumin/Globulin [Mass ratio]2.9 {ratio}HighUniversity Hospitals Ahuja Medical Center- [place], KYALP [Catalytic activity/Vol]20 U/LLow35 - 104 U/LMUniversity [facility]als [facility]- [place], KYALT [Catalytic activity/Vol]161 U/LHigh5 - 33 U/LMUniversity [facility]als [facility]- [place], KYAST [Catalytic activity/Vol]195 U/LHigh<32[facility]- [place], KYBilirubin Ql (U)0.70 mg/dL0.3 - 1.2 mg/dLDayton Children'S Hospital [place], KYBilirubin, Indirect0.52 mg/dL0 - 1 mg/dL [facility], KYBilirubin.direct [Mass/Vol]0.18 mg/dL<0.31[facility], KYGlobulinNOT REPORTED1.5 - 3.8 g/dLMercy Health Kings [facility], KYInterpretation and review of laboratory resultsAbnoSumma Health Wadsworth - [facility], KYProtein [Mass/Vol]4.3 g/dLLow6.4 - 8.3 g/dLMercy Health [facility], KYImmature Platelet Fractionon 07-03-2019 Interpretation and review of laboratory resultsAbnoSumma Health Wadsworth - Rittman [facility] Center, [place] Platelet, Jnmnsxjlvawr44MdxGiehi Health- [place], KYPlatelet, Immature Fraction1.6 % 1.1 - 10.3 %[facility], KYLACTIC ACID, WHOLE BLOODon 07-03-2019 Interpretation and review of laboratory resultsAbnormHolzer Hospital, [place] Lactic Acid, Whole Blood7.8 mmol/LHigh0.7 - 2.1 mmol/LMDoctors Hospital [place], KYLactic Acid, POCon [id number] Lactic Acid8.50 mmol/LHigh0.56 - 1.39 mmol/LMUniversity [facility]- [place], KYPOC Lactic Acid7.80 mmol/LHigh0.56 - 1.39 mmol/LM[facility]- [place], KYPOC Lactic Acid9.22 mmol/LHigh0.56 - 1.39 mmol/LMoh[facility]health [facility]- [place], KYPOC Lactic Acid9.18 mmol/LHigh0.56 - 1.39 mmol/LMer[facility]- [place], KYPOC Lactic Acid10.36 mmol/LHigh0.56 - 1.39 mmol/LM[facility]- [place], KYPOC Lactic Acid12.34 mmol/LHigh 0.56 - 1.39 mmol/LMer[facility]- [place], KYMAGNESIUMon 60-25-2411Snjbhylpn [Mass/Vol] 2.5 mg/dL1.6 - 2.6 mg/dLMercy Health- [place], KYMagnesiumon 88-17-4066Eacsjlqkd [Mass/Vol]2.6 mg/dL1.6 - 2.6 mg/dLMercy Health- [place], KYMagnesium [Mass/Vol]3.5 mg/dLHigh1.6-2.6Mbarberton citizens hospitaly [facility] Hospital Of San BernardinoComment on above:Performed By: #### CDP, PFA, CP, GLYHGB #### [facility] [address] [id number] Baseball Pitcher: Savage Jacob, MDMagnesium [Mass/Vol]3.5 mg/dLHigh1.6 - 2.6 mg/dL [facility]- [place], KYMixed Venous Gas, POCon 78-29-7791Igfiq TestNOT REPORTED [facility]- [place], FEOMS3LHU REPORTEDMercy Health- [place], KYHCO3, Mixed23.7 mmol/L23 - 29 mmol/LMer[facility]- [place], KYModeNOT REPORTEDMercy Health- [place], KYNegative Base Excess, Ttbhx2[facility]- [place], KYO2 Device/Flow/%NOT REPORTEDMercy Health- [place], KYO2 Sat, Mixed70 %60 - 80 %[facility]- [place], KYPCO2, Mixed39.6LowMercy Health- [place], KYPH MIXED7.384[facility]- [place], KYPO2, Mixed37.4[facility]- [place], KYPOC pCO2 TempNOT REPORTEDmm HgMercy Health- [place], KYPOC pH TempNOT REPORTEDMercy Health- [place], [place]YPOC pO2 TempNOT REPORTEDmm HgMercy Health- [place], KYPositive Base Excess, MixedNOT REPORTEDMer[facility]- [place], KYPt TempNOT REPORTEDMercy Health- [place], KYSample SiteNOT REPORTEDUniversity [facility]- [place], KYtCO2, Mixed25 mmol/L24 - 30 mmol/LMbarberton citizens hospitaly Health- [place], KYOPEN HEART COAGon 03-66-5217rADV Coag (Bld) [Time]85.9 sCritically highUniversity Hospitals Ahuja Medical Center- [place], KYFibrinogen<80Critically ohb713 - 420 mg/dL [facility]- [place], JERRYINR Coag (PPP) [Relative time]3.2 {INR}[facility]- [place], [place] Interpretation and review of laboratory resultsAbnormDayton Children's Hospital- [place], [place] Platelets (Bld) [#/Vol]DUPLICATE ORDERk/[facility]- [place], KYPT Coag (PPP) [Time]31 sHigWestern Reserve Hospital- [place], KYOtheron 34-53-0302Riaxptwxsmygfc and review of laboratory resultsAbnormDayton Children's Hospital- [place], KYInterpretation and review of laboratory resultsAbnormSandhills Regional Medical Center [facility]- [place], KYInterpretation and review of laboratory resultsAbnormSandhills Regional Medical Center [facility]- [place], KYInterpretation and review of laboratory resultsAbnormSandhills Regional [facility]- [place], KYInterpretation and review of laboratory resultsAbnormSandhills Regional [facility]- [place], KYInterpretation and review of laboratory resultsAbnormSandhills Regional [facility]- [place], KYInterpretation and review of laboratory resultsAbnormSandhills Regional [facility]- [place], KYInterpretation and review of laboratory resultsAbnormSandhills Regional Medical Center [facility]- [place], KYInterpretation and review of laboratory resultsAbnormSandhills Regional [facility]- [place], KYInterpretation and review of laboratory resultsAbnormSandhills Regional [facility] Center [facility]- [place], KYInterpretation and review of laboratory resultsAbnormSandhills Regional [facility]- [place], KYInterpretation and review of laboratory resultsAbnormSandhills Regional [facility]- [place], KYInterpretation and review of laboratory resultsAbnormSandhills Regional [facility]- [place], KYInterpretation and review of laboratory resultsAbnormSandhills Regional [facility]- [place], KYInterpretation and review of laboratory resultsAbnormSandhills Regional [facility]- [place], KYInterpretation and review of laboratory resultsAbnormSandhills Regional Medical Center [facility]- [place], KYPLT, Immature Fract.on 07-03-2019 Platelet, Fluoresc.43 k/gQKfe170-227ZrxiiAdena Fayette Medical CenterComment on above:Result Comment: ORDERED BY LABPerformed By: #### CDP, PFA, CP, GLYHGB #### [facility] [address], [place] [id number] Baseball Pitcher: VICENTA Barahona Immature Fract.1.6 %Normal1.1-10.3[facility] Hospital Of San BernardinoComment on above:Result Comment: ORDERED BY LABPerformed By: #### CDP, PFA, CP, GLYHGB #### [facility] [address] [place], [place] [id number] Baseball Pitcher: OVI Barahona Glucose Fingerstickon 07-03-2019 Interpretation and review of laboratory resultsAbnoSumma Health Wadsworth - [facility], KYPOC Pfkylnt004 mg/pTAcgt34 - 105 mg/dLMercy Health [facility], KYInterpretation and review of laboratory resultsAbnormHolzer Hospital, KYPOC Vhtzijo469 mg/hXKluu61 - 105 mg/dLMercy Health [facility], KYPOCT Glucoseon 54-04-1507WXG Bdrlakd058 mg/gPWkmj95 - 100 mg/dLMercy Health [facility], KYPOC Nstltge745 mg/yOVqmj62 - 100 mg/dLMercy Health [facility], KYPOC Ahauddn855 mg/vKUnlr67 - 100 mg/dLMercy Health [facility], KYPOC Rgdszzx982 mg/eCPopb13 - 100 mg/dLMercy Health [facility], KYPOC Nsbfmgr440 mg/zLRemj71 - 100 mg/dLMercy Health [facility], KYPOC Fhbdphy975 mg/jZQnca39 - 100 mg/dLMercy Health [facility], KYPOC Jstpgah890 mg/cPIvug45 - 100 mg/dLMercy Health [facility], KYPOC Xgfzify106 mg/aNDied15 - 100 mg/dLMercy Health [facility], KYPOC Lawesws761 mg/wFNhqc26 - 100 mg/dLMercy Health [facility], KYPOC Egdvvby970 mg/tPFllj70 - 100 mg/dLMercy Health [facility], KYPOC Yygyiwz571 mg/aPUfct95 - 100 mg/dLMercy Health [facility], KYPOC Bipnlsc845 mg/lTScdm69 - 100 mg/dLMercy Health- [place], [place]YPOC Obfekij144 mg/hPCtlz65 - 100 mg/dLWayne Hospital Health- [place], KYPOC Bkmbcjq372 mg/qJLshf26 - 100 mg/dLWayne Hospital Health- [place], [place]YPOC Suhruho842 mg/yXRecf44 - 100 mg/dLUniversity Hospitals [facility]- [place], [place] POTASSIUM (POC)on 01-75-4465LOD Potassium3.7 mmol/L3.5 - 4.5 mmol/LMercy Health- [place], KYPOC Potassium3.6 mmol/L3.5 - 4.5 mmol/LMer[facility]- [place], KYPOC Potassium 3.6 mmol/L3.5 - 4.5 mmol/LM[facility]- [place], KYPOC Potassium4.0 mmol/L3.5 - 4.5 mmol/LM[facility]- [place], KYPOC Potassium4.0 mmol/L3.5 - 4.5 mmol/LM[facility]- [place], KYPOC Potassium4.0 mmol/L3.5 - 4.5 mmol/LM[facility]- [place], KYPOC Potassium 4.2 mmol/L3.5 - 4.5 mmol/LM[facility]- [place], KYPOC Potassium4.5 mmol/L3.5 - 4.5 mmol/LM[facility]- [place], KYPOC Potassium5.3 mmol/LHigh3.5 - 4.5 mmol/LM[facility]- [place], KYPOC Potassium5.4 mmol/LHigh3.5 - 4.5 mmol/LM[facility]- [place], KYPOC Potassium5.2 mmol/LHigh3.5 - 4.5 mmol/LM[facility]- [place], KYPOC Potassium5.7 mmol/LHigh3.5 - 4.5 mmol/LM[facility]- [place], KYPOC Potassium4.5 mmol/L3.5 - 4.5 mmol/LM[facility]- [place], KYPOC Potassium4.0 mmol/L3.5 - 4.5 mmol/LMer[facility] Health- [place], KYPROTIME-INRon 95-18-3149JXT Coag (PPP) [Relative time]1.7 {INR}[facility]- [place], KYInterpretation and review of laboratory resultsAbnormalUniversity Hospitals [facility]hu[facility]- [place], KYPT Coag (PPP) [Time]17 [facility], KYPTon 31-24-2685POX Coag (PPP) [Relative time]1.2 {INR}[facility] Comment on above:Result Comment: Therapeutic Range: Moderate Anticoagulant Intensity: INR = 2.0-3.0 High Anticoagulant Intensity: INR = 2.5-3.5Performed By: #### CDP, PFA, CP, GLYHGB #### [employer] [address] [place] [id number] Baseball Pitcher: RIGO Barahona Coag (PPP) [Time]12.6 [facility]9.0-12.0Adena Fayette Medical CenterComment on above:Performed By: #### CDP, PFA, CP, GLYHGB #### [employer] [address] [place] [address] [id number] Baseball Pitcher: Daniel Barahona Counton 61-16-0310Wcwzmpdbc (Bld) [#/Vol]185 10*3/34 [address] StreetComment on above: Performed By: #### CDP, PFA, CP, GLYHGB #### [employer] [address] [place] [address] [id number] Baseball Pitcher: Daniel Barahona counton 10-82-6521Zzoutmsgx (Bld) [#/Vol]185 10*3/[facility], KYProtime-INRon 41-72-8610VHE Coag (PPP) [Relative time]1.2 {INR}[facility], KYInterpretation and review of laboratory resultsAbnormHolzer Hospital, KYPT Coag (PPP) [Time]12.6 [facility], KYSODIUM (POC)on 14-50-5788BNC Swhilo152 mmol/LTcek383 - 146 mmol/[facility], KYPOC Ykgobh064 mmol/XHzty667 - 146 mmol/[facility], KYPOC Yscijq558 mmol/FLtsu601 - 146 mmol/[facility], KYPOC Mvdpqz903 mmol/GJwvb850 - 146 mmol/LMercy Health- [place], [place]YPOC Vyvait166 mmol/SOayi021 - 146 mmol/LM[facility]- [place], [facility] Jewfjr212 mmol/L138 - 146 mmol/[facility] [place] Jesanr192 mmol/L138 - 146 mmol/[facility] [place] Miwavr094 mmol/L 138 - 146 mmol/[facility] [place] Ckgagh989 mmol/L138 - 146 mmol/[facility] [place] Diifsl633 mmol/L138 - 146 mmol/[facility] [place] Sodium 140 mmol/L138 - 146 mmol/[facility] [place] Swqzhc183 mmol/L138 - 146 mmol/[facility] [place] Whcwvk284 mmol/L138 - 146 mmol/[facility] [place] K[facility]ologyon [id number] Pathology(NOTE) [id number] [facility] [address] [place] [id number] SURGICAL PATHOLOGY CONSULTATION Patient Name: ELEANOR MCCLAIN [facility] Rec: [id number] Path Number: [id number] Collected: 07/03/2019 Received: 07/04/2019 Reported: 07/05/2019 13:33 [...] 1. ELEANOR MCCLAIN, AORTIC VALVE Fragments of hopkins, focally mineralized valvular tissue, 3.5 x 2.2 x 0.6 cm in aggregate. No vegetations or masses. Portion 1cs after short decalcification. 2. ELEANOR RHETT, 16 SCREWS, 3 PLATES, 3 BANDS Three bands, two plates and sixteen screws. Gross only. tm Microscopic Description 1. Microscopic examination performed.[facility] Comment on above:Performed By: #### DENIZ DAVIS #### [facility] [place] [address] Baseball Pitcher: Savage Jacob MDType + Screenon [id number] + ScreenSample Expiration 07/06/2019,2359 Arm Band Number [id number] ABO/Rh(D) A POSITIVE Antibody Screen NEGATIVE Antigen Type,Patient Negative for E Antigen Unit Number [id number] Blood Component Type Leukocyte Reduced Red Cell Unit Division 00 Status of Unit TRANSFUSED Transfusion Status OK TO TRANSFUSE Crossmatch Result COMPATIBLE Unit Number [id number] Blood Component Type Leukocyte Reduced Red Cell Unit Division 00 Status of Unit TRANSFUSED Transfusion Status OK TO TRANSFUSE Crossmatch Result COMPATIBLE Unit Number [id number] Blood Component Type Leukocyte Reduced Red Cell Unit Division 00 Status of Unit TRANSFUSED Transfusion Status OK TO TRANSFUSE Crossmatch Result COMPATIBLE Unit Number [id number] Blood Component Type Leukocyte Reduced Red Cell Unit Division 00 Status of Unit TRANSFUSED Transfusion Status OK TO TRANSFUSE Crossmatch Result COMPATIBLE Unit Number [id number] Blood Component Type Leukocyte Reduced Red Cell Unit Division 00 Status of Unit TRANSFUSED Transfusion Status OK TO TRANSFUSE Crossmatch Result COMPATIBLE Unit Number [id number] Blood Component Type Leukocyte Reduced Red Cell Unit Division 00 Status of Unit TRANSFUSED Transfusion Status OK TO TRANSFUSE Crossmatch Result COMPATIBLE Unit Number [id number] Blood Component Type Leukocyte Reduced Red Cell Unit Division 00 Status of Unit TRANSFUSED Transfusion Status OK TO TRANSFUSE Crossmatch Result COMPATIBLE Unit Number [id number] Blood Component Type Leukocyte Reduced Red Cell Unit Division 00 Status of Unit TRANSFUSED Transfusion Status OK TO TRANSFUSE Crossmatch Result COMPATIBLE Unit Number [id number] Blood Component Type Leukocyte Reduced Red Cell Unit Division 00 Status of Unit TRANSFUSED Transfusion Status OK TO TRANSFUSE Crossmatch Result COMPATIBLE Unit Number [id number] Blood Component Type Leukocyte Reduced Red Cell Unit Division 00 Status of Unit TRANSFUSED Transfusion Status OK TO TRANSFUSE Crossmatch Result COMPATIBLE Unit Number [id number] Blood Component Type Leukocyte Reduced Red Cell Unit Division 00 Status of Unit TRANSFUSED Transfusion Status OK TO TRANSFUSE Crossmatch Result COMPATIBLE Unit Number [id number] Blood Component Type Leukocyte Reduced Red Cell Unit Division 00 Status of Unit REL FROM ALLOC Transfusion Status OK TO TRANSFUSE Crossmatch Result COMPATIBLE Unit Number [id number] Blood Component Type Leukocyte Reduced Red Cell Unit Division 00 Status of Unit REL FROM ALLOC Transfusion Status OK TO TRANSFUSE Crossmatch Result COMPATIBLE Unit Number [id number] Blood Component Type Leukocyte Reduced Red Cell Unit Division 00 Status of Unit REL FROM ALLOC Transfusion Status OK TO TRANSFUSE Crossmatch Result COMPATIBLE Unit Number [id number] Blood Component Type Leukocyte Reduced Red Cell Unit Division 00 Status of Unit REL FROM ALLOC Transfusion Status OK TO TRANSFUSE Crossmatch Result COMPATIBLE Unit Number [id number] Blood Component Type Leukocyte Reduced Red Cell Unit Division 00 Status of Unit REL FROM ALLOC Transfusion Status OK TO TRANSFUSE Crossmatch Result NOT TESTED Unit Number [id number] Blood Component Type Leukocyte Reduced Red Cell Unit Division 00 Status of Unit REL FROM ALLOC Transfusion Status OK TO TRANSFUSE Crossmatch Result NOT TESTED Unit Number [id number] Blood Component Type Leukocyte Reduced Red Cell Unit Division 00 Status of Unit REL FROM ALLOC Transfusion Status OK TO TRANSFUSE Crossmatch Result NOT TESTED Unit Number [id number] Blood Component Type Leukocyte Reduced Red Cell Unit Division 00 Status of Unit REL FROM ALLOC Transfusion Status OK TO TRANSFUSE Crossmatch Result NOT TESTEDNoFort Hamilton HospitalComment on above:Performed By: #### UA, LIDIA #### [facility]Nearbu[facility] [address] [place] [address] Baseball Pitcher: WHITNEY Barahona CHEST PORTABLEon [id number] CHEST PORTABLE EXAMINATION: ONE XRAY VIEW OF [...] 13 cm is recommended. Right IJ approach [place]awn catheter distal tip overlying the expected location [...] Signed by: Enzo Plascencia MD 07/03/19 Final resultNormalMercy Community Hospital Of San BernardinoXR CHEST PORTABLEEXAMINATION: ONE XRAY VIEW OF THE CHEST 07/03/2019 [...] Signed by: Jesús Clemons MD 07/03/19 Final resultNoUniversity Hospitals [facility], [facility], [facility], [facility], [facility], [facility], KYCT Chest WO Contraston .5 mm ground-glass nodule right upper lobe which may be on the basis of inflammatory or infectiousbasis. Coronary artery calcification. Atherosclerotic disease. RECOMMENDATIONS: Follow- up CT in 6-12 months. Fleischner Society guidelines for follow-up and management of incidentally detected pulmonary nodules: Single Solid Nodule: Nodule size equals 6-8 mm In a low-risk patient, CT at 6-12 months, then consider CT at 18- 24 months. In a high-risk patient, CT at 6-12 months, then CT at 18-24 months. - Low risk patients include individuals with minimal or absent history of smoking and other known risk factors. - High risk patients include individuals with a history or smoking or known risk factors. Radiology 2017 http://pubs.rsna.org/doi/full/10.1148/radiol.2166532920Ppovn [employer] Work Phone: eXAMINATION: CT OF THE CHEST WITHOUT CONTRAST 06/29/2019 3:24 pm TECHNIQUE: CT of the chest was performed without the administration of intravenous contrast. Multiplanar reformatted images are providedfor review. Dose modulation, iterative reconstruction, and/or weight [...] nodules are noted. No areas of consolidation oreffusion are present. Tracheobronchial tree is patent. Upper Abdomen: Atherosclerotic disease is noted in the aorta. Gallbladder is surgically absent. Otherwise no abnormality of note is present. Soft Tissues/Bones: Multilevel degenerative and degenerative disc changes are present without worrisomeacute osseous abnormality. No acute soft tissue abnormality is seen.[employer] Work Phone: e, [facility] Incoming Radiant Results From [employer] - 06/29/2019 4:37 PM EST EXAMINATION: CT [...] smoking or known risk factors. Radiology 2017 http://pubs.rsna.org/doi/full/10.1148/radiol.3873396965 [employer] Phone: vL DUP CAROTID BILATERALon [id number] [facility] Vascular Carotid Procedure Patient Name RHETT Date of Study 06/29/2019 ELEANOR Hay Date of 1950 Gender Female Age 68 year(s) Race Room Number Corporate ID# [id number] Patient MR # [id number] Body Liner MITCHELL Colmenares Interpreting Physician Ana Grace MD Referring Referring Physician Nurse Practitioner ProcedureType of Study: Cerebral: Carotid, Carotid Scan Bilateral. [...] End Diastolic Velocities >120cm/sec. Ordered by: Vasiliy Bethea APRN-BRYSON Conclusions Summary Moderate 50-69% stenosis of the right internal carotid artery. Mild 16-49% stenosis of the left internal carotid artery. Signature Findings: Right Impression: Left Impression: Intimal thickening right common Intimal thickening left common carotid artery. carotid artery. Carotid scan shows mild Carotid scan shows mild heterogeneous heterogeneous plaque formation at plaque formation at the bifurcation, the bifurcation, origin of the right origin of the left internal carotid internalcarotid artery. artery. Vertebral artery flow is antegrade . Vertebral artery flow is antegrade . Risk Factors History +---------+----+ + !Diagnosis!Date!Comments ! +---------+----+ +!CAD ! !aortic stenosis ! +---------+----+ + !Other ! !H/O CVA ! ! ! !H/O kidney disease ! +---------+----+ + Velocities are measured in cm/s ; Diameters are measured in cm Carotid Right Measurements + +--------+-------+-------+------+ + + !Location !PSV !EDV !Angle !RI !%Stenosis !Tortuosity ! + +--------+-------+-------+------+ + + !Prox CCA !60.35 !17.15 ! !0.72 ! ! ! + +--------+-------+----- --+------+ + + !Mid CCA !58.9 !19.56 ! !0.67 ! ! ! + +--------+-------+-------+------+ + + !Dist CCA !65.84 !14.93 ! !0.77 ! ! ! +------ -----+--------+-------+-------+------+ + + !Bulb !99.73 !35.86 ! !0.64 !! ! + +--------+-------+-------+------+ + + !Prox ICA !106.85!40.57 ! !0.62 ! ! ! + +--------+-------+-------+------+ + + !M id ICA !125.31 !38.62 ! !0.69 ! ! ! + +--------+-------+-------+------+ + + !Dist ICA !94.43 !32.77 ! !0.65 ! ! ! + +--------+-------+-------+------+ + + !Prox ECA !70.08 !9.72 ! !0.86 ! ! ! + +--------+-------+---- ---+------+ + + !Vertebral !32.03 !11.4 ! !0.64 ! ! ! + +--------+-------+-------+------+ + + - There is antegrade vertebral flow notedon the right side. - Additional Measurements:ICAPSV/CCAPSV 2.08.ICAEDV/CCAEDV 2.37. Carotid Left Measurements + +--------+--------+--------+-------+ + + !Location !PSV !EDV !Angle !RI !%Stenosis !Tortuosity ! + +--------+--------+--------+-------+ + + !Prox CCA !56.4 !10.13 ! !0.82 ! ! ! + +--------+--------+--------+-- -----+ + + !Mid CCA !49.4 !10.12 ! !0.8 ! ! ! + +--------+--------+--------+-------+ + + !Dist CCA !52.29 !11.64 ! !0.78 ! ! ! + + --------+--------+--------+-------+ + + !Bulb !61.3 !12.71 ! !0.79 ! ! ! +--- ---------+--------+--------+--------+-------+ + + !Prox ICA !59.9 !17.31 ! !0.71 ! ! ! + +--------+--------+--------+-------+ + + !Mid ICA !50.49 !15.64 ! !0.69 ! ! ! + +--------+--------+--------+-------+ + + !Dist ICA !77.16 !20.09 ! !0.74 ! ! ! + +--------+--------+--------+-------+ + + !Prox ECA !71.46 !5.25 ! !0.93 ! ! ! + +--------+--------+--------+-------+ + + !Vertebral !77.16 !17.81 ! !0.77 ! ! ! + +--------+-------- +--------+-------+ + + - Additional Measurements:ICAPSV/CCAPSV 1.37.ICAEDV/CCAEDV 1.98.[facility] Work Phone: e, [facility] Incoming Cardio Results From [facility]/Ge - 06/29/2019 4:29 PM [facility] Vascular Carotid Procedure Patient Name RHETT Date of Study 06/29/2019 ELEANOR Hay Date of 1950 Gender Female Age 68 year(s) Race Room Number Corporate ID # [id number] Patient MR # [id number] Body Liner MITCHELL Colmenares Interpreting Physician Ana Grace MD [...] End Diastolic Velocities >120cm/sec. Ordered by: Vasiliy Bethea APRN-CNA CAREGIVER Conclusions Summary Moderate 50-69% stenosis of the right internal carotid artery. Mild 16-49% stenosis of the left internal carotid artery. Signature Findings: Right Impression: Left Impression: Intimal thickening [...] flow is antegrade . Risk Factors History +---------+----+ + !Diagnosis!Date!Comments ! +---------+----+ + !CAD ! !aortic stenosis ! +---------+----+ + !Other ! !H/O CVA ! ! ! !H/O kidney disease ! +---------+----+ + Velocities are measured in cm/s ; Diameters are measured in cm Carotid Right Measurements + +--------+-------+-------+------+ + + !Location !PSV !EDV !Angle !RI !%Stenosis !Tortuosity ! + +--------+-------+-------+------+ + + !Prox CCA !60.35 !17.15 ! !0.72 ! ! ! + +--------+-------+-------+------+ + + !Mid CCA !58.9 !19.56 ! !0.67 ! ! ! + +--------+-------+-------+------+ + + !Dist CCA !65.84 !14.93 ! !0.77 ! ! ! + +--------+-------+-------+------+ + + !Bulb !99.73 !35.86 ! !0.64 ! ! ! + +--------+-------+-------+------+ + + !Prox ICA !106.85 !40.57 ! !0.62 ! ! ! + +--------+-------+-------+------+ + + !Mid ICA !125.31 !38.62 ! !0.69 ! ! ! + +--------+-------+-------+------+ + + !Dist ICA !94.43 !32.77 ! !0.65 ! ! ! + +--------+-------+-------+------+ + + !Prox ECA !70.08 !9.72 ! !0.86 ! ! ! + +--------+-------+-------+------+ + + !Vertebral !32.03 !11.4 ! !0.64 ! ! ! + +--------+-------+-------+------+ + + - There is antegrade vertebral flow noted on the right side. - Additional Measurements:ICAPSV/CCAPSV 2.08.ICAEDV/CCAEDV 2.37. Carotid Left Measurements + +--------+--------+--------+-------+ + + !Location !PSV !EDV !Angle !RI !%Stenosis !Tortuosity ! + +--------+--------+--------+-------+ + + !Prox CCA !56.4 !10.13 ! !0.82 ! ! ! + +--------+--------+--------+-------+ + + !Mid CCA !49.4 !10.12 ! !0.8 ! ! ! + +--------+--------+--------+-------+ + + !Dist CCA !52.29 !11.64 ! !0.78 ! ! ! + +--------+--------+--------+-------+ + + !Bulb !61.3 !12.71 ! !0.79 ! ! ! + +--------+--------+--------+-------+ + + !Prox ICA !59.9 !17.31 ! !0.71 ! ! ! + +--------+--------+--------+-------+ + + !Mid ICA !50.49 !15.64 ! !0.69 ! ! ! + +--------+--------+--------+-------+ + + !Dist ICA !77.16 !20.09 ! !0.74 ! ! ! + +--------+--------+--------+-------+ + + !Prox ECA !71.46 !5.25 ! !0.93 ! ! ! + +--------+--------+--------+-------+ + + !Vertebral !77.16 !17.81 ! !0.77 ! ! ! + +--------+--------+--------+-------+ + + - Additional Measurements:ICAPSV/CCAPSV 1.37.ICAEDV/CCAEDV 1.98.[employer] Work Phone: vl VEIN MAPPING LOWER BILATERALon [phone] Hospital Of Jonesboro Vascular Lower Extremity Vein Mapping Procedure Patient Name RHETT Dateof Study 06/27/2019 ELEANOR M Date of 1950 Gender Female Age 68 year(s) Race Room Number op Corporate ID # [id number] Patient MR # [id number] Body Liner Sandra Hoff RVT Interpreting Physician Godfrey John Referring Referring Physician Coco Bethea Nurse Practitioner Procedure Type of Study: Veins: Lower Extremity Vein Mapping. Indications for Study:Pre-op OHS. Patient Status:Out Patient. Conclusions Summary No DVT in the bilateral common femoral veins. Vein sizes are listed in the table above. Signature Findings: Right Impression: Left Impression: Common femoral and femoral veins are Common femoral and femoral compressible. Two small hematomas with no veins are compressible. color flow identified. Risk Factors History +---------+----+ + !Diagnosis!Date!Comments ! +---------+----+ + !CAD ! !aortic stenosis ! +---------+----+ + !Other ! !H/O CVA ! ! ! !H/O kidney disease ! +---------+----+ + - The patient's risk factor(s) include: diabetes mellitus, dyslipidemia and arterial hypertension. Velocities are measured in cm/s ; Diameters are measured in cm +----- ++--------+-----+----+--------+-----+ !Superficial - Great Saphenous Vein !!Right ! !Left! ! ! + ++--------+-----+----+--------+-----+ !Location !!Diameter!Depth! !Diameter!Depth! + ++--------+-----+----+--------+-----+ !Sapheno Femoral Junction !!0.37 ! ! !0.5 ! ! + ++--------+-----+----+--------+-----+ !GSV Mid Thigh !!0.21 ! ! !0.22 ! ! + ++--------+-----+----+--------+-----+ !GSV Knee !!0.19 ! ! !0.26 ! ! +---- ++--------+-----+----+--------+-----+ !GSV High Calf !!0.23 ! ! !0.26 ! ! + ++--------+-----+----+--------+-----+ !GSV Low Calf !!0.16 ! ! !0.25 ! ! + ++--------+-----+----+--------+-----+ !GS V Ankle !!0 ! ! !0.15 ! ! + ++--------+-----+----+--------+-----+ + ++--------+-----+----+--------+-----+ !Superficial - Lesser Saphenous Vein !!Right ! !Left! ! ! + ++--------+-----+----+--------+-----+ !Location !!Diameter!Depth! !Diameter!Depth! + ++--------+-----+----+--------+-----+ !SSV High Calf !!0.23 ! ! !0.12 ! ! + ++--------+-----+----+--------+-----+ !SSV Mid Calf !!0.2 ! ! !0.15 ! ! + ++--------+-----+----+--------+-----+ !SSV Low Calf !!0.16 ! ! !0.17 ! ! +-- ++--------+-----+----+--------+-----+ !SSV Ankle !!0.16 ! ! !0 ! ! + ++--------+-----+----+--------+-----+ [employer] Work Phone: edi, [facility] Incoming Cardio Results From [facility]/ - 06/27/2019 7:56 PM [facility] Vascular Lower Extremity Vein Mapping Procedure Patient Name RHETT Date of Study 06/27/2019 ELEANOR Hay Date of 1950 Gender Female Age 68 year(s) Race Room Number op Corporate ID # [id number] Patient MR # [id number] Body Liner Sandra Hoff RVT Interpreting Physician Godfrey John Referring Referring Physician Vasiliy Bethea Nurse Practitioner Procedure Type of Study: Veins: Lower Extremity Vein Mapping. Indications for Study:Pre-op OHS. Patient Status:Out Patient. Conclusions Summary No DVT in the bilateral common femoral veins. Vein sizes are listed in the table above. Signature Findings: Right Impression: Left Impression: Common femoral and femoral veins are Common femoral and femoral compressible. Two small hematomas with no veins are compressible. color flow identified. Risk Factors History +---------+----+ + !Diagnosis!Date!Comments ! +---------+----+ + !CAD ! !aortic stenosis ! +---------+----+ + !Other ! !H/O CVA ! ! ! !H/O kidney disease ! +---------+----+ + - The patient's risk factor(s) include: diabetes mellitus, dyslipidemia and arterial hypertension. Velocities are measured in cm/s ; Diameters are measured in cm + ++--------+-----+----+--------+----- + !Superficial - Great Saphenous Vein !!Right ! !Left! ! ! + ++--------+-----+----+--------+----- + !Location !!Diameter!Depth! !Diameter!Depth! + ++--------+-----+----+--------+----- + !Sapheno Femoral Junction !!0.37 ! ! !0.5 ! ! + ++--------+-----+----+--------+----- + !GSV Mid Thigh !!0.21 ! ! !0.22 ! ! + ++--------+-----+----+--------+----- + !GSV Knee !!0.19 ! ! !0.26 ! ! + ++--------+-----+----+--------+----- + !GSV High Calf !!0.23 ! ! !0.26 ! ! + ++--------+-----+----+--------+----- + !GSV Low Calf !!0.16 ! ! !0.25 ! ! + ++--------+-----+----+--------+----- + !GSV Ankle !!0 ! ! !0.15 ! ! + ++--------+-----+----+--------+----- + + ++--------+-----+----+--------+----- + !Superficial - Lesser Saphenous Vein !!Right ! !Left! ! ! + ++--------+-----+----+--------+----- + !Location !!Diameter!Depth! !Diameter!Depth! + ++--------+-----+----+--------+----- + !SSV High Calf !!0.23 ! ! !0.12 ! ! + ++--------+-----+----+--------+----- + !SSV Mid Calf !!0.2 ! ! !0.15 ! ! + ++--------+-----+----+--------+----- + !SSV Low Calf !!0.16 ! ! !0.17 ! ! + ++--------+-----+----+--------+----- + !SSV Ankle !!0.16 ! ! !0 ! ! + ++--------+-----+----+--------+----- + [employer] Phone: cult,Urine,CCon [id number],Urine,CCSpecimen Description .CLEAN CATCH URINE Special Requests NOT REPORTED Culture NO GROWTH Report Status FINAL 06/26/2019[facility] HospitalComment on above:Performed By: #### CDP, PFA, CP, GLYHGB #### [employer] [address] [place] [address] Baseball Pitcher: JONG Barahona 12 [employer] [id number] Exgl01QIESfxfr Health Work Phone: p Dplb61xhvxbsuAmisj Health Work Phone: p-R Xzsaitud064 [employer] Phone: Q-T Nrgecark117 [employer] Work Phone: QRS Ptqmxhqz33 [employer] Work Phone: QTc Calculation (Chandrika)456 [employer] Work Phone: r Zune2bisocmwDltfv Health Work Phone: T Pbvs73byniijzOalvv Health Work Phone: Ventricular Lbqe40GCIObtlc Health Work Phone: sinus rhythm with occasional Premature ventricular complexes Otherwise normal ECG No previous ECGs availableAdena Fayette Medical CenterHelpstream Phone: eKip marshall Incoming Ekg Results From [employer] - 06/26/2019 5:35 PM EST Sinus rhythm with occasional Premature ventricular complexes Otherwise normal ECG No previous ECGs [facility] Phone: MRSA DNA Probe, Nasalon [id number], DNA, Nasal NEGATIVE: MRSA DNA not detected by nucleic acid amplification.NEGATIVE: MRSA DNA not detected by nucleic acid amplificatiAdena Fayette Medical CenterHelpstream Phone: comment on above: Results should be used as an adjunct to nosocomial control efforts to identify patients needing enhanced precautions. The test is not intended to identify patients with staphylococcal infections. Results should not be used to guide or monitor treatment for MRSA infections. Specimen Description.NASAL SWABAdena Fayette Medical CenterHelpstream Phone: MRSA, DNA, Nasalon [id number], DNA, NasalNEGATIVE: MRSA DNA not detected by nucleic acid amplification.NormalNMRSAAAdena Fayette Medical CenterComment on above:Result Comment: Results should be used as an adjunct to nosocomial control efforts to identify patients needing enhanced precautions. The test is not intended to identify patients with staphylococcal infections. Results should not be used to guide or monitor treatment for MRSA infections. Performed By: #### CDP, PFA, CP, GLYHGB #### [employer] [address] [place] [address] Baseball Pitcher: Mariano Barahona culture clean catchon [id number] On license of [facility] [employer] Phone: special RequestsNOT REPORTEDAdena Fayette Medical CenterHelpstream Phone: specimen Description.CLEAN CATCH URINEAdena Fayette Medical CenterHelpstream Phone: aPTTon [id number] Coag (Bld) [Time]22.5 sNormal 20.5-30.5Adena Fayette Medical CenterComment on above:Performed By: #### PT, PTT #### [employer] [address] [place] [address] Baseball Pitcher: Savage Jacob MDaPTJuanita Coag (Bld) [Time]22.5 [facility] [employer] Phone: arterial Blood Gas, POCon [phone] TestPositive [facility] [employer] Work Phone: aPTT Coag (Bld) [Time]NOT REPORTEDAdena Fayette Medical CenterCRATE Technology GmbH Work Phone: FIO221.0Adena Fayette Medical CenterCRATE Technology GmbH Work Phone: Interpretation and review of laboratory results AbnormalAdena Fayette Medical CenterCRATE Technology GmbH Work Phone: ModeNOT REPORTEDAdena Fayette Medical CenterCRATE Technology GmbH Work Phone: Negative Base Excess, ArtNOT REPORTEDAdena Fayette Medical CenterCRATE Technology GmbH Work Phone: O2 Device/Flow/%Room AirWayne Hospital [facility] [employer] Work Phone: Oxygen saturation in Blood98 %94 - 98 %[facility] [employer] Work Phone: pOC ULT520.1 mmol/L21 - 28 mmol/LMohiohealth grady memorial hospital [employer] Work Phone: OOC [id number] Technology GmbH Work Phone: pOC pCO2 TempNOT REPORTEDmm HgAdena Fayette Medical CenterCRATE Technology GmbH Work Phone: ZOC pH7.477HighAdena Fayette Medical CenterCRATE Technology GmbH Work Phone: JOC pH TempNOT REPORTEDAdena Fayette Medical CenterCRATE Technology GmbH Work Phone: POC RA9479.5[facility] [employer] Work Phone: pOC pO2 TempNOT REPORTEDmm HgAdena Fayette Medical CenterCRATE Technology GmbH Work Phone: positive Base Excess, Knf2[facility] Work Phone: sample SiteLeft Radial ArteryMer [employer] [employer] Work Phone: TCO2 (calc), Art25 mmol/L22 - 29 mmol/LMbarberton citizens hospitaly Health Work Phone: cBC Auto Differentialon [id number] (Bld) [#/Vol]0.06 10*3/uLMerCRATE Technology GmbH Work Phone: Basophils/100 WBC (Bld)1 %0 - 2 %[employer] Phone: differential TypeNOT REPORTEDAdena Fayette Medical CenterHelpstream Phone: eosinophils (Bld) [#/Vol]0.37 10*3/[employer] Phone: eosinophils/100 WBC (Bld)6 %High1 - 4 %[employer] Phone: erythrocyte distribution width (RBC) [Ratio]13.1 %11.8 - 14.4 %[employer] Phone: Hematocrit (Bld) [Volume fraction]29.9 %Low36.3 - 47.1 %[employer] Phone: Hemoglobin (Bld) [Mass/Vol]9.8 g/dLLow11.9 - 15.1 g/dL [employer] Phone: Immature granulocytes (Bld) [#/Vol]10*3/[employer] Phone: Immature granulocytes (Bld) [#/Vol]0 %0[employer] Phone: Interpretation and review of laboratory results AbnormalAdena Fayette Medical CenterHelpstream Phone: lymphocytes (Bld) [#/Vol]2.04 10*3/[employer] Phone: lymphocytes/100 WBC (Bld)33 %24 - 43 %[employer] Phone: MCH (RBC) [Entitic mass]29.2 pg25.2 - 33.5 pgAdena Fayette Medical CenterHelpstream Phone: MCHC (RBC) [Mass/Vol]32.8 g/dL28.4 - 34.8 g/dLAdena Fayette Medical CenterHelpstream Phone: MCV (RBC) [Entitic vol]89.0 fL82.6 - 102.9 fLAmplify.LAHelpstream Phone: Monocytes (Bld) [#/Vol]0.44 10*3/[facility]gerHelp[facility] Phone: Monocytes/100 WBC (Bld)7 %3 - 12 %[employer] Phone: [phone] mean volume (Bld) [Entitic vol]8.9 fL8.1 - 13.5 [facility]Help[facility] Phone: Platelets (Bld) [#/Vol]NOT REPORTEDAdena Fayette Medical CenterHelpstream Phone: Platelets (Bld) [#/Vol]309 10*3/[employer] Phone: RBC (Bld) [#/Vol]3.36 10*6/uLLow3.95 - 5.11 m/Stream TagsAdena Fayette Medical CenterHelpstream Phone: [phone] morphology finding Nom (Bld)NOT REPORTEDAdena Fayette Medical CenterHelpstream Phone: Segmented neutrophils/100 WBC (Bld)53 %36 - 65 %[employer] Phone: [phone] Absolute3.34[facility] CenterHelpstream Phone: WBC (Bld) [#/Vol]0.0 10*3/uL0.0 per 100 WBCAdena Fayette Medical CenterHelpstream Phone: WBC (Bld) [#/Vol]6.3 10*3/BadgerHelpstream Phone: [phone] MorphologyNOT REPORTEDAdena Fayette Medical CenterHelpstream Phone: CBC with Diffon [id number]. Basophil0.06 k/uLNormal 0.00-0.20[facility] CenterComment on above:Performed By: #### CDP, PFA, CP, GLYHGB #### [employer] [address] [place] [address] Baseball Pitcher: MDAbs. BrooklynImm.Granulocyte<0.93Zmsxvk5.00-0.30[facility] Medical CenterComment on above:Performed By: #### CDP, PFA, CP, GLYHGB #### [place] [address] Baseball Pitcher: Shea Barahona.Neutrophil (Seg)3.34 k/uLNormal1.50-8.10 [facility] CenterComment on above:Performed By: #### CDP, PFA, CP, GLYHGB #### [place] [address] Baseball Pitcher: Savage Jacob MDBasophils/100 WBC (Bld)1 %Normal0-2MKeck Hospital of USCComment on above:Performed By: #### CDP, PFA, CP, GLYHGB #### [place] [address] Baseball Pitcher: Savage Jacob MDEosinophils (Bld) [#/Vol]0.37 10*3/uLNormal 0.00-0.44[facility] CenterComment on above:Performed By: #### CDP, PFA, CP, GLYHGB #### [place] [address] Baseball Pitcher: ITERA Barahonaosinophils/100 WBC (Bld)6 %High1-4[facility] CenterComment on above:Performed By: #### CDP, PFA, CP, GLYHGB #### [place] [address] Baseball Pitcher: Savage Jacob MDErythrocyte distribution width (RBC) [Ratio]13.1 %Wtdsri18.8-14.4[facility] Medical CenterComment on above:Performed By: #### CDP, PFA, CP, GLYHGB #### [address] [place] [address] Baseball Pitcher: Savage Jacob MDHematocrit (Bld) [Volume fraction]29.9 %Low 36.3-47.1MKeck Hospital of USCComment on above:Performed By: #### CDP, PFA, CP, GLYHGB #### [address] [address] Baseball Pitcher: Savage Jacob MDHemoglobin (Bld) [Mass/Vol]9.8 g/dLLow11.9-15.1 [facility] CenterComment on above:Performed By: #### CDP, PFA, CP, GLYHGB #### [address] [address] Baseball Pitcher: Savage Jacob MDImmature granulocytes (Bld) [#/Vol]0 %Normal0 [facility] CenterComment on above:Performed By: #### CDP, PFA, CP, GLYHGB #### [place] [address] Baseball Pitcher: Kathie Barahonamphocytes (Bld) [#/Vol]2.04 10*3/uLNormal 1.10-3.70[facility] CenterComment on above:Performed By: #### CDP, PFA, CP, GLYHGB #### [address] [address] Baseball Pitcher: Kathie Barahonamphocytes/100 WBC (Bld)33 %Zrvbmi64-55YxiixAdena Fayette Medical CenterComment on above:Performed By: #### CDP, PFA, CP, GLYHGB #### [address] [address] Baseball Pitcher: ALISSA BarahonaCH (RBC) [Entitic mass]29.2 okMppeqj64.2-33.5 [facility] CenterComment on above:Performed By: #### CDP, PFA, CP, GLYHGB #### [address] [address] Baseball Pitcher: ALISSA BarahonaCHC (RBC) [Mass/Vol]32.8 g/hHVevfjd34.4-34.8 [facility] CenterComment on above:Performed By: #### CDP, PFA, CP, GLYHGB #### [address] [address] Baseball Pitcher: ALISSA BarahonaCV (RBC) [Entitic vol]89.0 sSRfmydi37.6-102.9 [facility] CenterComment on above:Performed By: #### CDP, PFA, CP, GLYHGB #### [address] [address] Baseball Pitcher: ALISSA Barahonaonocytes (Bld) [#/Vol]0.44 10*3/uLNormal 0.10-1.20[facility] CenterComment on above:Performed By: #### CDP, PFA, CP, GLYHGB #### [address] [address] Baseball Pitcher: ALISSA Barahonaonocytes/100 WBC (Bld)7 %Normal3-12[facility] CenterComment on above:Performed By: #### CDP, PFA, CP, GLYHGB #### [facility] [address] [place] [address] Baseball Pitcher: Savage Jacob MDNeutrophil (Seg)53 %Cltblv87-70PfwqvAdena Fayette Medical CenterComment on above:Performed By: #### CDP, PFA, CP, GLYHGB #### [facility] [address] [place] [address] Baseball Pitcher: Savage Jacob MDNRBC Automated0.0 per 100 WBCNormal0.0[facility] CenterComment on above:Performed By: #### CDP, PFA, CP, GLYHGB #### [facility] [address] [place] [address] Baseball Pitcher: Daniel Barahona mean volume (Bld) [Entitic vol]8.9 fL Normal8.1-13.5[facility] Medical CenterComment on above:Performed By: #### CDP, PFA, CP, GLYHGB #### [facility] [address] [place] [address] Baseball Pitcher: Rico Barahona (Bld) [#/Vol]309 10*3/gZCkzypk927-696 [facility] CenterComment on above:Performed By: #### CDP, PFA, CP, GLYHGB #### [address] [address] Baseball Pitcher: MELISSA Barahona (Bld) [#/Vol]3.36 10*6/uLLow3.95-5.11[facility] CenterComment on above:Performed By: #### CDP, PFA, CP, GLYHGB #### [facility] [address] [place] [address] Baseball Pitcher: PETR Barahona (Bld) [#/Vol]6.3 10*3/uLNormal3.5-11.3MKeck Hospital of USCComment on above:Performed By: #### CDP, PFA, CP, GLYHGB #### [facility] [address] [place] [address] Baseball Pitcher: Samir BarahonaNOT REPORTEDLancaster Municipal HospitalComment on above:Performed By: #### CDP, PFA, CP, GLYHGB #### [facility] [address] [place] [address] Baseball Pitcher: Savage Madoff, MDPlatelets (Bld) [#/Vol]NOT REPORTEDNormUniversity Hospitals TriPoint Medical CenterComment on above:Performed By: #### CDP, PFA, CP, GLYHGB #### [facility] [address] [place] [address] Baseball Pitcher: MELISSA Barahona morphology finding Nom (Bld)NOT REPORTED [facility] HospitalComment on above:Performed By: #### CDP, PFA, CP, GLYHGB #### [facility] [address] [place] [address] Baseball Pitcher: PETR Barahona MorphologyNOT REPORTEDLancaster Municipal HospitalComment on above:Performed By: #### CDP, PFA, CP, GLYHGB #### [address] [address] Baseball Pitcher: CASEY Barahonaintermountain healthcare Metabolic Profon 06-25-2019(cont.)Normal [facility] CenterComment on above:Result Comment: Average GFR for 70 or more years old: 75 mL/min/1.73sq m Chronic Kidney Disease: <60 mL/min/1.73sq m Kidney failure: <15 mL/min/1.73sq m eGFR calculated using average adult body mass. Additional eGFR calculator available at: http://www.[employer] Advantage/multiple_crcl_2012.htmPerformed By: #### CDP, PFA, CP, GLYHGB #### [facility] [address] [place] [address] Baseball Pitcher: Savage Jacob MDAlbumin [Mass/Vol]4.7 g/dLNormal3.5-5.2MKeck Hospital of USCComment on above:Performed By: #### CDP, PFA, CP, GLYHGB #### [facility] [address] [place] [address] Baseball Pitcher: Savage Jacob MDAlbumin/Globulin [Mass ratio]1.4 {ratio}Normal 1.0-2.5[facility] CenterComment on above:Performed By: #### CDP, PFA, CP, GLYHGB #### [facility] [address] [place] [address] Baseball Pitcher: Omar Barahona Phos70 U/MXqprgo30-079FcvxnAdena Fayette Medical CenterComment on above:Performed By: #### CDP, PFA, CP, GLYHGB #### [facility] [address] [place] [address] Baseball Pitcher: Savage Jacob MDALT [Catalytic activity/Vol]9 U/LNormal5-33[facility] CenterComment on above:Performed By: #### CDP, PFA, CP, GLYHGB #### [address] [address] Baseball Pitcher: Chayito Barahona gap [Moles/Vol]18 mmol/LHigh9-17[facility] CenterComment on above:Performed By: #### CDP, PFA, CP, GLYHGB #### [facility] [address] [place] [address] Baseball Pitcher: Savage Jacob MDAST [Catalytic activity/Vol]17 U/LNormal<32[facility] CenterComment on above:Performed By: #### CDP, PFA, CP, GLYHGB #### [facility] [address] [place] [address] Baseball Pitcher: Savage Jacob MDBilirubin Ql (U)0.24 mg/dLLow0.3-1.2MKeck Hospital of USCComment on above:Performed By: #### CDP, PFA, CP, GLYHGB #### [facility] [address] [place] [address] Baseball Pitcher: Savage Jacob MDCalcium [Mass/Vol]9.8 mg/dLNormal8.6-10.4[facility] CenterComment on above:Performed By: #### CDP, PFA, CP, GLYHGB #### [facility] [address] [place] [address] Baseball Pitcher: CASEY Barahonahloride [Moles/Vol]103 mmol/KFfbkwb87-763LrqxiAdena Fayette Medical CenterComment on above:Performed By: #### CDP, PFA, CP, GLYHGB #### [facility] [address] [place] [address] Baseball Pitcher: Savage Jacob MDCO2 [Moles/Vol]21 mmol/VEeyxuc40-86ZbicqAdena Fayette Medical CenterComment on above:Performed By: #### CDP, PFA, CP, GLYHGB #### [place] [address] Baseball Pitcher: CASEY Barahonareatinine [Mass/Vol]1.23 mg/dLHigh0.50-0.90 [facility] CenterComment on above:Performed By: #### CDP, PFA, CP, GLYHGB #### [facility] [address] [place] [address] Baseball Pitcher: Savage Jacob MDGFR, Amer52 mL/minLow>60[facility] CenterComment on above:Performed By: #### CDP, PFA, CP, GLYHGB #### [facility] [address] [place] [address] Baseball Pitcher: Savage Jacob MDGFR,non Amer43 mL/minLow>60[facility] CenterComment on above:Performed By: #### CDP, PFA, CP, GLYHGB #### [facility] [address] [place] [address] Baseball Pitcher: Savage Jacob MDGlucose [Mass/Vol]111 mg/uUAawl26-91EfxcbKeck Hospital of USCComment on above:Performed By: #### CDP, PFA, CP, GLYHGB #### [facility] [address] [place] [address] Baseball Pitcher: Savage Jacob MDPotassium [Moles/Vol]4.7 mmol/LNormal3.7-5.3 [facility] CenterComment on above:Performed By: #### CDP, PFA, CP, GLYHGB #### [place] [address] Baseball Pitcher: Savage Jacob MDProtein [Mass/Vol]8.0 g/dLNormal6.4-8.3MKeck Hospital of USCComment on above:Performed By: #### CDP, PFA, CP, GLYHGB #### [place] [address] Baseball Pitcher: Savage Jacob MDSodium [Moles/Vol]142 mmol/LXqmady875-379CijxsAdena Fayette Medical CenterComment on above:Performed By: #### CDP, PFA, CP, GLYHGB #### [place] [address] Baseball Pitcher: Savage Jacob MDUrea nitrogen [Mass/Vol]25 mg/dLHigh8-23[facility] CenterComment on above:Performed By: #### CDP, PFA, CP, GLYHGB #### [place] [address] Baseball Pitcher: FELICITY Barahona/CRE RatioNOT REPORTEDNormal9-20[facility] CenterComment on above:Performed By: #### CDP, PFA, CP, GLYHGB #### [place] [address] Baseball Pitcher: ZANA Barahonataging:NOT REPORTEDNormalAdena Fayette Medical CenterComment on above:Performed By: #### CDP, PFA, CP, GLYHGB #### [employer] [address] [place] [address] Baseball Pitcher: Savage Jacob [facility] BUFFALOompbarnesville hospitalensive Metabolic Panelon 06-25-2019 Albumin [Mass/Vol]4.7 g/dL3.5 - 5.2 g/dLAdena Fayette Medical CenterCRATE Technology GmbH Work Phone: Xlbumin/Globulin [Mass ratio]1.4 {ratio}[facility] HospitalAd[facility] Work Phone: FLP [Catalytic activity/Vol]70 U/L35 - 104 U/LMercy Health Work Phone: ILT [Catalytic activity/Vol]9 U/L5 - 33 U/LMercy Health Work Phone: Knion gap [Moles/Vol]18 mmol/LHigh9 - 17 mmol/LMercy Health Work Phone: DST [Catalytic activity/Vol]17 U/L<32MerCRATE Technology GmbH Work Phone: Pilirubin Ql (U)0.24 mg/dLLow0.3 - 1.2 mg/dLAdena Fayette Medical CenterCRATE Technology GmbH Work Phone: Yun/Cre RatioNOT REPORTEDMerCRATE Technology GmbH Work Phone: Qalcium [Mass/Vol]9.8 mg/dL8.6 - 10.4 mg/dLAdena Fayette Medical CenterCRATE Technology GmbH Work Phone: Fhloride [Moles/Vol]103 mmol/L98 - 107 mmol/LMercy Health Work Phone: FO2 [Moles/Vol]21 mmol/L20 - 31 mmol/LMercy Health Work Phone: Rreatinine [Mass/Vol]1.23 mg/dLHigh0.5 - 0.9 mg/dL [facility] HospitalAd[facility] Work Phone: GFR Akonruor65 mL/minLow>60MerCRATE Technology GmbH Work Phone: GFR Non- Wznvarch85 mL/minLow>60MerCRATE Technology GmbH Work Phone: GFR/1.73 sq M predicted among non-blacks MDRD (S/P/Bld) [Vol rate/Area]NOT REPORTEDAdena Fayette Medical CenterHelpstream Phone: GFR/1.73 sq M predicted among non-blacks MDRD (S/P/Bld) [Vol rate/Area][employer] Phone: comment on above:Average GFR for 70 or more years old: 75 mL/min/1.73sq m Chronic Kidney Disease: <60 mL/min/1.73sq m Kidney failure: <15 mL/min/1.73sq m eGFR calculated using average adult body mass. Additional eGFR calculator available at: http://www.[employer].com/2Nite2Nite.net_crcl_2012.htm Glucose [Mass/Vol]111 mg/nIUhez91 - 99 mg/dLNeuroNascent Phone: Interpretation and review of laboratory results AbnormalNeuroNascent Phone: potassium [Moles/Vol]4.7 mmol/L3.7 - 5.3 mmol/LMFluxion Biosciences Phone: protein [Mass/Vol]8.0 g/dL6.4 - 8.3 g/dLNeuroNascent Phone: sodium [Moles/Vol]142 mmol/L135 - 144 mmol/LMFluxion Biosciences Phone: Urea nitrogen [Mass/Vol]25 mg/dLHigh8 - 23 mg/dLNeuroNascent Phone: HEMOGLOBIN A1Con 82-52-0466Nxrlrgg [Mass/Vol]134 mg/dL [employer] Phone: comment on above:The ADA and AACC recommend providing the estimated average glucose result to permit better patient understanding of their HBA1c result. HbA1c (Bld) [Mass fraction]6.3 %High4 - 6 %[employer] Phone: Interpretation and review of laboratory results AbnormalNeuroNascent Phone: Hemoglobin A1Con 32-39-4054IlW2m (Bld) [Mass fraction] 6.3 %High4.0-6.0A[facility] Medical CenterComment on above:Performed By: #### CDP, PFA, CP, GLYHGB #### [employer] [address] [place] [phone] Baseball Pitcher: Savage Jacob MDHbA1c (Bld) [Mass fraction]134 mg/dLNormUniversity Hospitals TriPoint Medical CenterComment on above:Result Comment: The ADA and AACC recommend providing the estimated average glucose result to permit better patient understanding of their HBA1c result.Performed By: #### CDP, PFA, CP, GLYHGB #### [employer] [address] [place] [phone] Baseball Pitcher: ANGEL BarahonaA, DNA, Nasalon [id number] Description.NASAL SWABNormUniversity Hospitals TriPoint Medical CenterComment on above: Performed By: #### CDP, PFA, CP, GLYHGB #### [facility] HospitalNearbuyme [facility] [address] [place] [address] [phone] Baseball Pitcher: Rosa Barahonaroscopic Urinalysison 42-81-6666Plxszjqqq, UA NOT REPORTEDNoneMeadena health system [employer] Work Phone: bacteria, UANOT REPORTEDNonSt. Charles Hospital [employer] Work Phone: casts UA0 TO 2 HYALINE Reference range defined for non-centrifuged specimen.[facility] [employer] Phone: crystals UANOT REPORTEDNone /HPFWayne Hospital [employer] Work Phone: epithelial Cells UA0 TO 2[facility] [employer] Work Phone: Mucus, UANOT REPORTEDNoneMeadena health system [employer] Work Phone: Other Observations UANOT REPORTEDNOT REQ.[facility] [employer] Phone: rBC (U) [#/Vol]NoneWayne Hospital [employer] Work Phone: comment on above:Reference range defined for non- centrifuged specimen.Renal Epithelial, UrineNOT REPORTED0 /HPFMercy [employer] Work Phone: Trichomonas, UANOT REPORTEDNoneMey [employer] Work Phone: WBC, UANoneMeadena health system [employer] Work Phone: Yeast, UANOT REPORTEDNonSt. Charles Hospital [employer] Work Phone: -[facility] [employer] Phone: Otheron 56-68-1851Nnvqyv negative chest.[employer] Phone: eXAMINATION: TWO XRAY VIEWS OF THE CHEST 06/25/2019 12:58 pm COMPARISON: 05/10/2019 HISTORY: Reason for Exam: pre op CAD FINDINGS: The lungs are without acute focal process. No effusion or pneumothorax. The cardiomediastinal silhouette is normal. Stable hypertrophic degenerative change of the thoracic spine.[employer] Phone: edi, [facility] Incoming Radiant Results From [employer] - 06/25/2019 2:05 PM EST EXAMINATION: TWO XRAY VIEWS OF THE CHEST 06/25/2019 12:58 pm COMPARISON: 05/10/2019 HISTORY: Reason for Exam: pre op CAD FINDINGS: The lungs are without acute focal process. No effusion or pneumothorax. The cardiomediastinal silhouette is normal. 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 IMPRESSION: Stable negative chest. [employer] Phone: pTon [id number] Coag (PPP) [Relative time]0.9 {INR} [facility] Municipal HospitalComment on above:Result Comment: Therapeutic Range: Moderate Anticoagulant Intensity: INR = 2.0-3.0 High Anticoagulant Intensity: INR = 2.5-3.5Performed By: #### PT, PTT #### [employer] [address] [place] [address] Baseball Pitcher: RIGO Barahona Coag (PPP) [Time]9.8 sNormal9.0-12.0A[facility] Medical CenterComment on above:Performed By: #### PT, PTT #### [facility] [address] [place] [address] Baseball Pitcher: Daniel Barahona Functionon 29-02-3213Hdxlmbpe/DND224 jouHbnt32-106BkqvsAdena Fayette Medical CenterComment on above:Performed By: #### CDP, PFA, CP, GLYHGB #### [facility] [address] [place] [address] Baseball Pitcher: Savage Jacob MDCollagen/EPI>596Tjsk04-808YitenAdena Fayette Medical CenterComment on above:Performed By: #### CDP, PFA, CP, GLYHGB #### [address] [address] Baseball Pitcher: Savage Jacob MDInterpretationAbnormal platelet function.Normal [facility] CenterComment on above:Result Comment: Common pattern seen in von Willebrand disease [...] treated with Plavix (clopidogrel) have not been established.Performed By: #### CDP, PFA, CP, GLYHGB #### [facility] [address] [place] [address] Baseball Pitcher: Daniel Barahona function teston [id number]/EPI Clos Time>300[facility] [employer] Work Phone: collagen Adenosine-5'-Diphosphate (Adp) Pwoc349Ecvm [facility] Work Phone: Interpretation and review of laboratory results [facility] Work Phone: platelet Function InterpAbnormal platelet function. [employer] Phone: comment on above:Common pattern seen in von Willebrand disease and [...] Plavix (clopidogrel) have not been established. Protime-INRon 86-09-6195YYA Coag (PPP) [Relative time]0.9 {INR}[employer] Phone: comment on above: Therapeutic Range: Moderate Anticoagulant Intensity: INR = 2.0-3.0 High Anticoagulant Intensity: INR = 2.5-3.5 PT Coag (PPP) [Time]9.8 sMFluxion Biosciences Phone: TYPE AND SCREENon 41-42-0638XGD/RhPositiveAdena Fayette Medical CenterHelpstream Phone: arm Band [id number] Health Work Phone: expiration Date07/06/2019,2359A[facility] CenterHelpstream Phone: Type + Screenon [id number] + ScreenSample Expiration 07/06/2019,2359 Arm Band Number [id number] ABO/Rh(D) A POSITIVE Antibody Screen NEGATIVENormalAdena Fayette Medical CenterComment on above: Performed By: #### TYS #### [employer] [facility] [place] [address] Baseball Pitcher: Savage Jacob MDUrinalysison 01-39-6559Wocvvlqwy UrineNegative NEGATIVEAdena Fayette Medical CenterHelpstream Phone: color, UAYELLOWYELLOWAdena Fayette Medical CenterHelpstream Phone: Glucose, UrNegativeNEGATIVEMercy Health Work Phone: Interpretation and review of laboratory results AbnormalMercy Health Work Phone: Ketones Ql (U)NegativeNEGATIVEMercy Health Work Phone: leukocyte esterase Test strip Ql (U)NegativeNEGATIVE [facility] Work Phone: Nitrite, UrineNegativeNEGATIVEMercy Health Work Phone: pH, UA6.5[facility] Work Phone: protein (U) [Mass/Vol]TRACEAbnormalNEGATIVEMercy Health Work Phone: specific [place], UA1.017[facility] Work Phone: Turbidity UACLEARCLEARMercy Health Work Phone: Urinalysis CommentsNOT REPORTEDMercy Health Work Phone: Urine HgbNegativeNEGATIVEMer Health Work Phone: Urobilinogen, UrineNormalNormalMer Health Work Phone: Urinalysis, Routineon 56-83-8665Zicggmifruj Acid,Ur NegativeNormalNEGMercy Community Hospital Of San BernardinoComment on above:Performed By: #### UA, UMICAO #### [employer] [address] [place] [address] [phone] Baseball Pitcher: Savage Jacob MDBilirubin, SemiQt,UrNegativeNormalNEGMercy Community Hospital Of San BernardinoComment on above:Performed By: #### UA, UMICAO #### [facility] [address] [place] [address] [phone] Baseball Pitcher: CASEY Barahonaolor (U)YELLOWNormalYELMerProvidence Tarzana Medical CenterComment on above:Performed By: #### UA, UMICAO #### [facility] [address] [place] [address] [phone] Baseball Pitcher: Savage Jacob MDGlucose Ql (U)NegativeNormalNEGAdena Fayette Medical CenterComment on above:Performed By: #### DENIZ DAVIS #### [facility] [address] [place] [address] Baseball Pitcher: Savage Jacob MDHemoglobin, UrNegativeNormalNEGAdena Fayette Medical CenterComment on above:Performed By: #### DENIZ DAVIS #### [facility] [address] [place] [address] Baseball Pitcher: Savage Jacob MDLeukocyte esterase Test strip Ql (U)Negative NormalNEGAdena Fayette Medical CenterComment on above:Performed By: #### DENIZ DAVIS #### [facility] [address] [place] [address] Baseball Pitcher: Savage Jacob MDNitrite,UrNegativeNormalNEGAdena Fayette Medical CenterComment on above:Performed By: #### DENIZ DAVIS #### [facility] [address] [place] [address] Baseball Pitcher: Haley BarahonaH (U)6.5 [pH]Normal5.0-8.0A[facility] Medical CenterComment on above:Performed By: #### DENIZ DAVIS #### [facility] [address] [place] [address] Baseball Pitcher: HALEY Barahonarotein Ql (U)TRACEAbnormalNEGAdena Fayette Medical CenterComment on above:Performed By: #### DENIZ DAVIS #### [facility] [address] [place] [address] Baseball Pitcher: ZANA Barahonapecific gravity (U) [Rel density]1.017Normal 1.005-1.030A[facility] Medical CenterComment on above:Performed By: #### UA, UMICAO #### [facility] [address] [place] [address] Baseball Pitcher: Savage Jacob MDTurbidityCLEAROzarks Community HospitalalCOhioHealth O'Bleness HospitalComment on above:Performed By: #### UA, UMICAO #### [facility] [address] [place] [address] Baseball Pitcher: Savage Jacob MDUrobilinogen,UrNormalMansfield HospitalComment on above:Performed By: #### UA, UMICAO #### [facility] [address] [place] [address] Baseball Pitcher: Henrry BarahonaNOT REPORTEDLancaster Municipal HospitalComment on above:Performed By: #### UA, UMICAO #### [address] [address] Baseball Pitcher: Savage Jacob MDUrinalysis,Microon 06-25-2019-----NormalAdena Fayette Medical CenterComment on above:Performed By: #### UA, UMICAO #### [facility] [address] [place] [address] Baseball Pitcher: CASEY Barahonaasts LM.LPF (Urine sed) [#/Area]0 TO 2 HYALINE Normal0-8A[facility] Medical CenterComment on above:Result Comment: Reference range defined for non-centrifuged specimen.Performed By: #### UA, UMICAO #### [facility] [address] [place] [address] Baseball Pitcher: Savage Jacob MDEpithelial cells LM.HPF (Urine sed) [#/Area]0 TO 4Mamubb5-5GvltkAdena Fayette Medical CenterComment on above:Performed By: #### UA, UMICAO #### [facility] [address] [place] [address] Baseball Pitcher: Savage Madoff, MDRBC (U) [#/Vol]NoneNormal0-4MerProvidence Tarzana Medical CenterComment on above:Result Comment: Reference range defined for non- centrifuged specimen.Performed By: #### SUSAN, UMMATTHEW #### [facility] [address] [place] [address] Baseball Pitcher: Savage Jacob MDWBC (U) [#/Vol]NoneNormal0-5A[facility] CenterComment on above:Performed By: #### UA, UMICAO #### [facility] [address] [place] [address] Baseball Pitcher: Ines Baarhona sediment LM Ql (Urine sed)NOT REPORTED NormalSalem City HospitalComment on above:Performed By: #### SUSAN, UMICAO #### [facility] [address] [place] [address] Baseball Pitcher: Karen Barahona LM.HPF (Urine sed) [#/Area]NOT REPORTED NormalSalem City HospitalComment on above:Performed By: #### UA, UMICAO #### [facility] [address] [place] [address] Baseball Pitcher: Jessica Barahonastnakul LM Nom (Urine sed)NOT REPORTEDNormal NONEAdena Fayette Medical CenterComment on above:Performed By: #### UA, UMICAO #### [facility] [address] [place] [address] Baseball Pitcher: Savage Jacob MDEpithelial, RenalNOT PPYYRHMMFnsklr7BobzvAdena Fayette Medical CenterComment on above:Performed By: #### UA, UMICAO #### [facility] [address] [place] [address] Baseball Pitcher: ALISSA Barahonaucus StrandsNOT REPORTEDNormalBANNEREMeCottage Children's HospitalComment on above:Performed By: #### UA, UMICAO #### [facility] [address] [place] [address] Baseball Pitcher: Savage Jacob MDOther ObservationsNOT REPORTEDNormalNREQAdena Fayette Medical CenterComment on above:Performed By: #### UA, UMICAO #### [facility] [address] [place] [address] Baseball Pitcher: Savage Jacob MDTrichomonasNOT REPORTEDNormalNONEMeCottage Children's HospitalComment on above:Performed By: #### UA, UMICAO #### [facility] [address] [place] [address] Baseball Pitcher: Savage Jacob MDYeast LM Ql (Urine sed)NOT REPORTEDNormalBANNERE Ad[facility]ayette Medical CenterComment on above:Performed By: #### UA, UMICAO #### [facility] [address] [place] [address] Baseball Pitcher: Savage Jacob MDXR CHEST (2 VW)on 10-09-6774QJ CHEST (2 VW) EXAMINATION: TWO XRAY VIEWS OF THE CHEST 06/25/2019 12:58 pm COMPARISON: 05/10/2019 HISTORY: Reason for Exam: pre op CAD FINDINGS: The lungs are without acute focal process. No effusion or pneumothorax. The cardiomediastinal silhouette is normal. 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 IMPRESSION: Stable negative chest. Interpreted by: Kaylen Ying MD Signed by: Kaylen Ying MD 06/25/19 Final resultNormUniversity Hospitals TriPoint Medical CenterPO Glucoseon 06-06-2019 Glucose [Mass/Vol]141 mg/pPOyuz66 - 99 mg/dLOhioHealthInterpretation and review of laboratory resultsAbnormalOBarnesville Hospital Auto DifferentialOrdered By: Anshul Irizarry on 35-79-8141Lakieuzu Eos #0.30[facility] [employer] Work Phone: absolute Immature GranulocyteNOT REPORTEDUniversity Hospitals Ahuja [facility] Center Work Phone: absolute Lymph #2.00A[facility] Medical CenterHelpstream Phone: absolute [place] #0.50A[facility]ayette Medical CenterHelpstream Phone: basophils (Bld) [#/Vol]0.10 10*3/uLAdena Fayette Medical CenterHelpstream Phone: basophils/100 WBC (Bld)1 %0 - 2 %[employer] Phone: differential TypeYESMercAdvisity Work Phone: eosinophils/100 WBC (Bld)5 %0 - 5 %[employer] Phone: erythrocyte distribution width (RBC) [Ratio]13.4 %12.1 - 15.2 %[employer] Phone: Hematocrit (Bld) [Volume fraction]33.0 %Low36 - 46 % [employer] Phone: Hemoglobin (Bld) [Mass/Vol]11.1 g/dLLow12 - 16 g/dL [employer] Phone: Immature GranulocytesNOT REPORTED0 %[employer] Phone: Interpretation and review of laboratory results AbnormalAdena Fayette Medical CenterHelpstream Phone: lymphocytes/100 WBC (Bld)27 %15 - 40 %[employer] Phone: MCH (RBC) [Entitic mass]28.8 pg26 - 34 pgAdena Fayette Medical CenterHelpstream Phone: MCHC (RBC) [Mass/Vol]33.5 g/dL31 - 37 g/dLAdena Fayette Medical CenterHelpstream Phone: MCV (RBC) [Entitic vol]85.8 fL80 - 100 fLAdena Fayette Medical CenterHelpstream Phone: Monocytes/100 WBC (Bld)7 %4 - 8 %[employer] Phone: MPVNOT REPORTED6 - 12 fLAdena Fayette Medical CenterCRATE Technology GmbH Work Phone: NRBC AutomatedNOT REPORTEDper 100 WBCAdena Fayette Medical CenterCRATE Technology GmbH Work Phone: platelet EstimateNOT REPORTEDAdena Fayette Medical CenterCRATE Technology GmbH Work Phone: platelets (Bld) [#/Vol]432 10*3/[employer]gerCR[employer] Work Phone: RBC (Bld) [#/Vol]3.84 10*6/uLLow4 - 5.2 m/BadgerCRATE Technology GmbH Work Phone: rBC morphology finding Nom (Bld)NOT REPORTEDAdena Fayette Medical CenterCRATE Technology GmbH Work Phone: segmented neutrophils/100 WBC (Bld)60 %47 - 75 %[facility] [employer] Work Phone: segs Absolute4.40Adena Fayette Medical CenterCRATE Technology GmbH Work Phone: WBC (Bld) [#/Vol]7.3 10*3/[employer]CR[employer] Work Phone: WBC MorphologyNOT REPORTEDAdena Fayette Medical CenterCRATE Technology GmbH Work Phone: comprehensive Metabolic PanelOrdered By: Grayson Hernandez on 89-27-5729Jtcrnww [Mass/Vol]5 g/dL3.5 - 5.2 g/dLAdena Fayette Medical CenterHelpstream Phone: albumin/Globulin RatioNOT REPORTEDAdena Fayette Medical CenterCRATE Technology GmbH Work Phone: aLP [Catalytic activity/Vol]99 U/L35 - 104 U/LMercy [employer] Work Phone: aLT [Catalytic activity/Vol]9 U/L5 - 33 U/LMercy [employer] Work Phone: anion gap [Moles/Vol]13 mmol/L9 - 17 mmol/LMercy [employer] Work Phone: aST [Catalytic activity/Vol]14 U/L<32MerCRATE Technology GmbH Work Phone: bilirubin [Mass/Vol]0.33 mg/dL0.3 - 1.2 mg/dLWayne Hospital [employer] Phone: bun/Cre Eqcnw45Ryumz [employer] Work Phone: calcium [Mass/Vol]10.5 mg/dLHigh8.6 - 10.4 mg/dLWayne Hospital [employer] Phone: chloride [Moles/Vol]103 mmol/L98 - 107 mmol/LMohiohealth grady memorial hospital [employer] Work Phone: cO2 [Moles/Vol]24 mmol/L20 - 31 mmol/LMohiohealth grady memorial hospital [employer] Work Phone: creatinine [Mass/Vol]1.33 mg/dLHigh0.5 - 0.9 mg/dL [facility] [employer] Phone: GFR Vnaixdpr64 mL/minLow>60[facility] [employer] Phone: GFR CommentWayne Hospital [employer] Work Phone: comment on above:Average GFR for 70 or more years old: 75 mL/min/1.73sq m Chronic Kidney Disease: <60 mL/min/1.73sq m Kidney failure: <15 mL/min/1.73sq m eGFR calculated using average adult body mass. Additional eGFR calculator available at: http://www.LikeBetter.com/multiple_crcl_2012.htm GFR Non- Osvpscyh26 mL/minLow>60[facility] [employer] Phone: GFR StagingNOT REPORTEDWayne Hospital [employer] Work Phone: Glucose [Mass/Vol]128 mg/zUBbur56 - 99 mg/dLWayne Hospital [employer] Phone: potassium [Moles/Vol]4.8 mmol/L3.7 - 5.3 mmol/LMohiohealth grady memorial hospital [employer] Work Phone: protein [Mass/Vol]8.6 g/dLHigh6.4 - 8.3 g/dLWayne Hospital [employer] Phone: sodium [Moles/Vol]140 mmol/L135 - 144 mmol/LMercy [employer] Phone: Urea nitrogen [Mass/Vol]23 mg/dL8 - 23 mg/dLAdena Fayette Medical CenterHelpstream Phone: Hemoglobin J3LUgwnkiq By: Anshul Irizarry on 05-10-2019 Glucose [Mass/Vol]128 mg/dLAdena Fayette Medical CenterHelpstream Phone: comment on above:The ADA and AACC recommend providing the estimated average glucose result to permit better patient understanding of their HBA1c result. HbA1c (Bld) [Mass fraction]6.1 %High4.8 - 5.9 %[facility] HospitalEnikos Phone: Interpretation and review of laboratory results AbnormalAdena Fayette Medical CenterHelpstream Phone: lipid PanelOrdered By: Grayson Hernandez on 05-10-2019 Cholesterol [Mass/Vol]252 mg/dLHigh<200[facility] [employer] Phone: comment on above: Cholesterol Guidelines: <200 Desirable 200-240 Borderline >240 Undesirable Cholesterol in HDL [Mass/Vol]113 mg/dL>40Adena Fayette Medical CenterHelpstream Phone: comment on above: HDL Guidelines: <40 Undesirable 40-59 Borderline >59 Desirable Cholesterol in LDL [Mass/Vol]128 mg/dL0 - 130 mg/dLAdena Fayette Medical CenterHelpstream Phone: comment on above: LDL Guidelines: <100 Desirable 100-129 Near to/above Desirable 130-159 Borderline >159 Undesirable Direct (measured) LDL and calculated LDL are not interchangeable tests. Cholesterol.total/Cholesterol in HDL [Mass ratio]2.2 {ratio}<5MerHelpstream Phone: Triglyceride [Mass/Vol]54 mg/dL<150Adena Fayette Medical CenterHelpstream Phone: comment on above: Triglyceride Guidelines: <150 Desirable 150-199 Borderline 200-499 High >499 Very high Based on AHA Guidelines for fasting triglyceride, February 2012. VLDLNOT REPORTED1 - 30 mg/dLAdena Fayette Medical CenterHelpstream Phone: MagnesiumOrdered By: Anshul Irizarry on 05-10-2019 Interpretation and review of laboratory resultsAbnoBetify Phone: Magnesium [Mass/Vol]2.9 mg/dLHigh1.6 - 2.6 mg/dLNeuroNascent Phone: No Panel InformationOrdered By: Grayson Hernandez on 04-03-2348Lxwvjdjeohjljk and review of laboratory resultsAbnormBetify Phone: patient Fasting?Ordered By: Grayson Hernandez on 50-19-4403Utblaxu Fasting?YESAdena Fayette Medical CenterHelpstream Phone: TSH without ReflexOrdered By: Grayson Hernandez on 60-53-4165UZS Qn1.55 m[IU]/LMohiohealth grady memorial hospital [employer] Phone: Vitamin D 25 HydroxyOrdered By: Anshul Irizarry on 63-47-1648Whs D, 25-Enogikz60.5 ng/mL30 - 100 ng/mLNeuroNascent Phone: comment on above: Reference Range: Vitamin D status Range Deficiency <20 ng/mL Mild Deficiency 20-30 ng/mL Sufficiency 30-100 ng/mL Toxicity >100 ng/mL XR CHEST STANDARD (2 VW)Ordered By: Grayson Hernandez on 44-87-1059Qz acute cardiopulmonary abnormality.[employer] Phone: eXAM: XR CHEST (2 VW) HISTORY: R01.1. COMPARISON: None. FINDINGS: Two views are submitted. The lungs and pleural spaces are clear. Pulmonary vascular markings are normal. The cardiomediastinal silhouette is within normal limits. No bony lesions are shown.[employer] Phone: edi, [facility] Incoming Radiant Results From [employer] - 05/10/2019 10:43 AM EST EXAM: XR CHEST (2 VW) HISTORY: R01.1. COMPARISON: None. FINDINGS: Two views are submitted. The lungs and pleural spaces are clear. Pulmonary vascular markings are normal. The cardiomediastinal silhouette is within normal limits. No bony lesions are shown. IMPRESSION: No acute cardiopulmonary abnormality. [facility] HospitalAd[facility] Work Phone: Vital Signs Date TimeVital SignValuePerforming QoeugonvlJpcrsrtg20-24-8639 12:22-0400Body xyorvs290.48 rTinity Hernandez MD Work Phone: 1(775)[address] [place], [place] 2597810-20-2025 12:22-0400 Body mass index (BMI) [Ratio]27.1 kg/b0ZqazzlGrayson Hernandez MD Work Phone: 1(067)[address] [place], [place] 2597810-20-2025 12:22-0400 Body degzscfkpts67.9 [degF]Grayson Hernandez MD Work Phone: 1(714)[address] [place], [place] 2597810-20-2025 12:22-0400 Body gjeeup37.13 kgGrayson Hernandez MD Work Phone: 1(933)[address] [place], [place] 2597810-20-2025 12:22-0400 Diastolic blood yjjttzbt75 mm[Hg]Grayson Hernandez MD Work Phone: 1(254)[address] [place], [place] 2597810-20-2025 12:22-0400 Heart rate74 /Hudson Hernandez MD Work Phone: 1(813)[address] [place], [place] 2597810-20-2025 12:22-0400 Respiratory rate18 /Hudson Hernandez MD Work Phone: 1(712)[address] [place], [place] 2597810-20-2025 12:22-0400 SaO2% (BldA) [Mass fraction]95 %Grayson Hernandez MD Work Phone: 1(653)[address] [place], [place] 2597810-20-2025 12:22-0400 Systolic blood zxtfvpoq876 mm[Hg]Grayson Hernandez MD Work Phone: 1(746)[address] [place], [place] 2597810-14-2025 14:33-0400 Body bwypjw694.8 Trinity Hernandez MD Work Phone: 1([phone] [place], [place] [address]Tpesfvrqol10-32-0435 14:33-0400Body mass index (BMI) [Ratio]25.56 kg/g4OuljndGrayson Hernandez MD Work Phone: [facility] HospitalZhletvzuyn72-70-1451 14:33-0400Body haqpxv78.41 kgGrayson Hernandez MD Work Phone: [facility] HospitalVnflnjzrhb91-38-3280 14:33-0400Diastolic blood qinkhcmt59 mm[Hg]Grayson Hernandez MD Work Phone: [phone] HospitalRlxyqwyiph70-79-1846 14:33-0400Heart rate70 /min Grayson Hernandez MD Work Phone: [phone] HospitalHiotguzvqo23-78-4724 14:33-9093NlK8% (BldA) [Mass fraction]99 %Grayson Hernandez MD Work Phone: [facility] HospitalZcaxxruhrc80-96-4302 14:33-0400Systolic blood vpobyqav574 mm[Hg]Grayson Hernandez MD Work Phone: [facility] HospitalYljaxcpign75-03-7661 11:48-0400Body pfqtov844.5 cmAnshul Irizarry MD Work Phone: [facility]06-17-2025 11:48-0400Body mass index (BMI) [Ratio]25.24 kg/m2Anshul Irizarry MD Work Phone: [facility]06-17-2025 11:48-0400Body qskhya40.6 kgAnshul Irizarry MD Work Phone: [facility]05-27-2025 14:11-0400Body cxveuv519.48 cm[facility]05-27-2025 14:11-0400Body mass index (BMI) [Ratio]24.2 kg/r7QqjwdzsxvBrown Memorial Hospital05-27-2025 14:11-0400Body sgxxqgrdyjg09.7 [degF][facility]05-27-2025 14:11-0400Body tskusb86.04 kgBrown [facility]05-27-2025 14:11-0400Diastolic blood mm[Hg][facility] 10-16-2024 14:11Heart rate55 /[facility] 10-16-2024 14:Respiratory rate18 /[facility] 10-16-2024 14:110038EpB2% (BldA) [Mass fraction]99 %[facility]05-27-2025 14:11Systolic blood epulqpzh884 mm[Hg][facility]04-29-2025 16:33-0400Body rluvox171.8 Trinity Hernandez MD Work Phone: 1(810)[facility] HospitalNfzftxnsjj76-21-2176 16:33-0400Body mass index (BMI) [Ratio]23.22 kg/v8WllmbrGrayson Hernandez MD Work Phone: 1(464)[facility] HospitalWtnzpucjdq65-24-3793 16:33-0400Body gckfor27.51 kgGrayson Henrandez MD Work Phone: 1(814)[facility] HospitalQftfyfempi88-25-0982 14:43-0400Body kwazqd782.8 Trinity Hernandez MD Work Phone: 1(095)[address] [place], [place] [address]Ruyjysuekj76-22-0643 14:43-0400Body mass index (BMI) [Ratio]25.38 kg/w4JwdbnzGrayson Hernandez MD Work Phone: 1(488)[address] [place], [place] [address]Ighnvxknmb26-48-7303 14:43-0400Body .96 kgGrayson Hernandez MD Work Phone: 1(869)[address] [place], [place] [address]Zihesfqean95-21-3397 15:02-0400Body .8 Trinity Hernandez MD Work Phone: 1(008)[facility] HospitalDswzqhzgqz19-96-0006 15:02-0400Body mass index (BMI) [Ratio]25.38 kg/s5WmfiixGrayson Hernandez MD Work Phone: 1(675)[address] [place], [place] [address]Avkmdyvbri07-15-2424 15:02-0400Body xrplad56.96 kgGrayson Hernandez MD Work Phone: [phone] [place], [place] [address]Rpmufomjfy75-50-1716 15:02-0400Diastolic blood cwuplcrl22 mm[Hg]Grayson Hernandez MD Work Phone: [facility] HospitalAaswewgctt36-50-7956 15:02-0400Heart rate71 /min Grayson Hernandez MD Work Phone: 1(997)[address] [place], [place] 2155703-31-2025 15:02-2438AvC6% (BldA) [Mass fraction]99 %Grayson Hernandez MD Work Phone: 1(226)[address] [place], [place] 2155703-31-2025 15:02-0400Systolic blood nwitzboj931 mm[Hg]Grayson Hernandez MD Work Phone: 1(367)[address] [place], [place] 2155702-14-2025 12:29-0500Diastolic blood orcyydpg15 mm[Hg]Dm Agarwal [facility] CenterJzxajnoapq34-21-2052 12:29-0500Systolic blood byjydufz00 mm[Hg]Dm Agarwal [facility] CenterKaqpxbjflr95-67-7562 15:29-0500 Body twzexp583.8 cmEkyleigh Hernandez MD Work Phone: [phone] [place], [place] 2155712-09-2024 15:29-0500Body mass index (BMI) [Ratio]25.02 kg/t3SrzgjnGrayson Hernandez MD Work Phone: 1(689)[address] [place], [place] 2155712-09-2024 15:29-0500Body gxtjyb09.05 kgGrayson Hernandez MD Work Phone: 1(312)[address] [place], [place] 2155710-17-2024 12:24-0400Body fyplez145.48 Trinity Hernandez MD Work Phone: [phone]10-17-2024 12:24-0400 Body mass index (BMI) [Ratio]23.8 kg/d7PtjhzdGrayson Hernandez MD Work Phone: 1(877)[address] [place], [place] 2597810-17-2024 12:24-0400 Body xwnapiyjbho74 [degF]Grayson Hernandez MD Work Phone: 1(349)[address] [place], [place] 2597810-17-2024 12:24-0400 Body vgwnwy80.13 kgGrayson Hernandez MD Work Phone: 1(703)[address] [place], [place] 2597810-17-2024 12:24-0400 Diastolic blood rerzhupv86 mm[Hg]Grayson Hernandez MD Work Phone: 1(348)014-[address] [place], [place] 4490710-17-2024 12:24-0400 Heart rate56 /Hudson Hernandez MD Work Phone: 1(575)[address] [place], [place] 2597810-17-2024 12:24-0400 Respiratory rate6 /Hudson Hernandez MD Work Phone: 1(354)[address] [place], [place] 2597810-17-2024 12:24-0400 SaO2% (BldA) [Mass fraction]100 %Grayson Hernandez MD Work Phone: 1(879)[address] [place], [place] 2597810-17-2024 12:24-0400 Systolic blood ujvwqufp214 mm[Hg]Grayson Hernandez MD Work Phone: 1(820)[address] [place], [place] 2597810-01-2024 15:40-0400 Body thctfo996.8 cmEkyleigh Hernandez MD Work Phone: [phone]10-01-2024 15:40-0400Body mass index (BMI) [Ratio]25.02 kg/k9HbkpymGrayson Hernandez MD Work Phone: [phone] HospitalFrvcpxbtux61-23-4164 15:40-0400Body yjrmml38.05 kgGrayson Hernandez MD Work Phone: [facility] HospitalYrjmyfdjwv16-80-7086 11:40-0400Diastolic blood yiwlpdya38 mm[Hg]Anshul Irizarry MD Work Phone: bon [facility]05-07-2024 11:40-0400Heart rate82 /minAnshul Irizarry MD Work Phone: bon [facility]05-07-2024 11:40-0400Systolic blood vusbnojm888 mm[Hg]Anshul Irizarry MD Work Phone: bon [facility]04-11-2024 14:45-0400Diastolic blood exblgkff29 mm[Hg]Matty Lei MD Work Phone: bon [employer]04-11-2024 14:45-0400Heart rate57 /Po Lei MD Work Phone: [employer]04-11-2024 14:45-0400 Respiratory rate16 /Po Lei MD Work Phone: [facility] [employer]04-11-2024 14:45-0236AlL1% (BldA) [Mass fraction]95 %Matty Lei MD Work Phone: [employer]04-11-2024 14:45-0400Systolic blood dgomleqx508 mm[Hg]Matty Lei MD Work Phone: [employer]04-11-2024 14:10-0400Body iqowbpjxmjw06.8 [degF]Matty Lei MD Work Phone: [employer]02-25-2023 10:10-0500Body .02 cmSlidia Woods Other [employer] Other 02-25-2023 10:10-0500Body mass index (BMI) [Ratio] 29.05 kg/c7Bawgfygavdana Woods Other [employer] Other 02-25-2023 10:10-0500Body ntcwjkgcick57.2 [degF] Flores Woods Other [employer] Other 02-25-2023 10:10-0500Body lukksj17.39 kgStdana Woods Other [employer] Other 02-25-2023 10:10-0500Respiratory rate18 /Rick Woods Other [employer] Other 02-25-2023 10:10-3600JyO5% (BldA) [Mass fraction]92 % Flores Woods Other [employer] Other 561367-15-9739 11:11-0500Body Lbsjjhsyqcs47.1 [degF][employer], YI06-14-3441 11:11-0500BP Cfnhlgwpv72 mm[Hg]Caro DorsaVIkpc promise of v[place]burgDo IT developersMercy Health [facility], KR28-54-4953 11:11-0500BP Yoyqapxj520 mm[Hg]Caro DorsaVIkpc promise of vicksburgDo IT developersMercy Health Kings [facility], RZ29-44-6597 11:11-0500Pulse (Heart Rate)50 /min [facility] HospitalDo IT developersMer[facility] Health [facility], DA37-68-6543 11:11-0500Respiratory Rate20 /min [facility] HospitalDo IT developersMercy Health [facility], IQ59-21-6827 04:00-0500Pulse Glknqpql69 % [facility] SystemcrealyticsMercy Health [facility], IA30-88-1643 06:00-0500BMI (Body Mass Index) 32.14 kg/p8Spulmv [employer], SW96-42-6242 06:00-0500Body weight 79.7 kgDatogus va medical center Maganda Pure MineralsMercy Health Kings Mills Hospital, XD66-82-9521 07:45-2890Cvaisg521.5 cm [facility] HospitalDo IT developersMer[facility] Health [facility], VX56-45-5695 12:17-0500Pulse Vptxqlgp20 %Stvz [employer] Work Phone: 1(910) 647-972102-03-2020 12:17-0500Respiratory Rate20 /minStvz 1 [employer] Phone: 1(937) 143-515602-03-2020 11:29-0500BMI (Body Mass Index)26.89 kg/m2 St[employer] Work Phone: 1(854) 878-375502-03-2020 11:29-0500Body Rmvngvefyta04.2 [degF]Stvz 1 [employer] Phone: 1(889) 152-260002-03-2020 11:29-0500Body .68 kgStvz 1MStaff Ranker Work Phone: 1(844) 303-612302-03-2020 11:29-0500BP Xpgdnfdyf91 mm[Hg]Stvz [facility] [employer] Work Phone: 1(820) 832-768002-03-2020 11:29-0500BP Bmpogyqe010 mm[Hg]Stvz [facility] [employer] Work Phone: 1(592) 546-465002-03-2020 11:29-3207Ozheog910.5 cmStvz [facility] [employer] Work Phone: 1(229) 133-534202-03-2020 11:29-0500Pulse (Heart Rate)76 /minStvz 1 [facility] HospitalEnikos Phone: 1(343) 971-927901-15-2020 15:03-0500BP Epvrnhsue45 mm[Hg][facility] CenterVknmabfLlfnTylifb28-00-1117 15:03-0500BP Qbhevmum814 mm[Hg][facility]01-15-2020 15:03-0500Pulse (Heart Rate)70 /minRoxborough Memorial Hospital01-15-2020 15:03-0500Pulse Hvzcanpv67 %[facility] 06-06-2019 08:40-0500BMI (Body Mass Index)25.97 kg/p5UxcaxubGreene County Medical Center 06-06-2019 08:40-0500Body spozvb99.41 kgGreene County Medical CenterSfsphkiWzwbUzifal93-45-0508 08:40-6653Ubzfhj553.5 cmGreene County Medical CenterQacstijGtzpJqalnq50-63-2251 08:05-0500Body Oewiwvhbxlh08.6 [degF][facility] CenterKwixmogGezrEgfxbt49-78-6897 08:05-0500Respiratory Rate14 /minGreene County Medical Center Encounters Encounter DateEncounter TypeCare ProviderFacilityStart: 03-25-2025 End: 11-06-3857Svsfzctxk Result EncounterGeneric External Data ProviderNOMS External Department UnsolicitedStart: 03-25-2025 End: 04-05-9725Aejhhmdfl Result EncounterGeneric External Data ProviderNOMS External Department UnsolicitedStart: 03-11-2025 End: 12-75-7859Grnzzako ReferredPasumma health [facility] Cherelle Chavezuniversity of maryland [facility] DIVER ASSISTANT-Lab [facility] Work Phone: Start: 03-11-2025 End: 35-90-9423ogakqyadxcWeezhd J Hemeyer MD Work Phone: -fpg [facility] ClydeStart: 03-11-2025 End: 74-95-6096Ohujnxn encounter procedureGood Samaritan Hospital Cherelle RodarteAurora [facility]is Work Phone: Start: 03-05-2025 End: 08-05-4920Bnxfak outpatient visit 25 minutesEdshivam Hernandez MD Work Phone: NOMS Alexis 100 Family MedicineComment on above:Primary hypertension (Primary Dx); Mixed hyperlipidemia; Hypokalemia; Type 2 diabetes mellitus with stage 3b chronic kidney disease, without long-term current use of insulin (HCC); Anemia due to stage 3b chronic kidney disease (CMS-HCC); Microalbuminuria; Paroxysmal atrial fibrillation (HCC); Chronic diastolic congestive heart failure, NYHA class 1 (HCC); Acute cystitis without hematuria; Chronic pruritus; PolypharmacyStart: 03-05-2025 End: 47-26-3961eppknzjnekRXWRCN J HEMEYERNot AvailableStart: 03-05-2025 End: 19-80-2417Lqwmqm flowsKamaljit Hernandez MD Work Phone: NOMS Alex[place] 100 Family MedicineStart: 03-05-2025 End: 30-13-0442Aqosqk flowsKamaljit Hernandez MD Work Phone: NOMS [place] 100 Family MedicineStart: 02-09-2025 End: 84-46-5702Msjngffsr Result Rashaad Hernandez MD Work Phone: NOBS External Department UnsolicitedStart: 02-09-2025 End: 30-56-8198Ddzfdrvfv Result Rashaad Hernandez MD Work Phone: noms External Department UnsolicitedStart: 01-07-2025 End: 32-66-2543xhhirmteibNqjandRobbie Velazquez RN Work Phone: noMIDDLETOWN EMERGENCY DEPARTMENT HEALTHStart: 11-15-2024 End: 57-44-9539Lpjetturl Result EncounterGeneric External Data ProviderNOMS External Department UnsolicitedStart: 11-15-2024 End: 55-47-6782Earfgqdym Result EncounterGeneric External Data ProviderNOMS External Department UnsolicitedStart: 11-15-2024 End: 62-64-5285gpuaiqjwvjALTKMS Carlos Eduardo Michele [facility] HospitalStart: 11-15-2024 End: 93-06-7627Rszpturvqx hospital visit by Bel Hernandez MD Work Phone: m[facility] LaboratoryComment on above:HypermagnesemiaStart: 11-06-2024 End: 20-09-9461Mxfsqcsru Result EncounterGeneric External Data ProviderNOMS External Department UnsolicitedStart: 11-06-2024 End: 25-96-7235Znbojidmd Result EncounterGeneric External Data ProviderNOMS External Department UnsolicitedStart: 11-06-2024 End: 11-84-8693vohxkveffySSJV Carlos Eduardo Buitrago [facility] HospitalStart: 11-06-2024 End: 36-56-7346Hurqyzvzap hospital visit by physicianAnshul Irizarry MD Work Phone: [facility] Non-Invasive CardiologyComment on above:Mitral valve stenosis, unspecified etiologyStart: 11-05-2024 End: 90-17-0087Gkegku flowsheetEmwilma Gasca MD Work Phone: noIN SWS DERMStart: 11-05-2024 End: 95-17-2224Izooyo flowsheetEmwilma Gasca MD Work Phone: noms SWS DERMStart: 11-05-2024 End: 22-35-4685Bahroo outpatient visit 15 minutesEmwilma Gasca MD Work Phone: noms [facility] DERMComment on above:Seborrheic keratosis (Primary Dx); History of basal cell carcinoma; Lentigines; Other seborrheic dermatitisStart: 11-05-2024 End: 84-98-6280bhdkccojghZXJKS A PETITTINot AvailableStart: 10-16-2024 End: 75-66-8461ihghuzzxpaCnxlqnnljProMedica [facility] Park Hospital Work Phone: Start: 10-16-2024 End: 65-63-7358Xpiwcsv encounter procedureCarolinas [facility] Work Phone: Start: 70-27-3778Rya-patient / Non-visitCarolinas [facility] Work Phone: Start: 10-08-2024 End: 62-48-1035Axbamsrbd Result EncounterGeneric External Data ProviderNOMS External Department UnsolicitedStart: 10-08-2024 End: 81-74-7285Ksjadiffl Result EncounterGeneric External Data ProviderNOMS External Department UnsolicitedStart: 10-05-2024 End: 65-02-1257ZiqkpmWogaba Wilkinson RN Work Phone: NOMS POPULATION HEALTHComment on above:Anxiety associated with depression (Primary Dx); Primary hypertension (CMS/HCC); Chronic diastolic congestive heart failure, NYHA class 1 (CMS/HCC); Edema, unspecified type; Acquired hypothyroidism (CMS/HCC)Start: 10-01-2024 End: 25-38-8017Fxaolwjyr encounterRoshan Mayfield PT Work Phone: NOMS CI PTComment on above:re: PT Recommendation (Call Back requested); FU (Home health contacted.)Home HealthStart: 09-26-2024 End: 10-22-2942itdikmzecnZhidja T Blackston PT Work Phone: NOMS CI PTComment on above:Generalized weakness (Primary Dx); Frequent fallsStart: 09-26-2024 End: 07-46-2030Zodfgpstalin Mayfield PT Work Phone: NOMS CI PTStart: 09-26-2024 End: 06-04-1688Ecfcmpstalin Mayfield PT Work Phone: NOMS CI PTStart: 09-18-2024 End: 89-68-6971Rxjlik outpatient visit 15 minutesEdshivam Hernandez MD Work Phone: noMS CI FM 100Comment on above:Generalized weakness; Frequent falls; History of falling; Polypharmacy; Type 2 diabetes mellitus with hyperglycemia, without long-term current use of insulin ([facility]); BMI 23.0-23.9, adultStart: 09-18-2024 End: 15-98-9076emadgsvhvdOASDDC J HEMEYERNot AvailableStart: 09-05-2024 End: 47-69-2793uizdjkumlrKBPIMR J HEMEYERNot AvailableStart: 09-05-2024 End: 65-51-5040Zgwndb outpatient visit 25 minutesGrayson Hernandez MD Work Phone: noms CI FM 100Comment on above:Acute bacterial conjunctivitis of both eyes (Primary Dx); Laceration of scalp, subsequent encounter; Fall from standing, subsequent encounter; Closed fracture of nasal bone with routine healing, subsequent encounter; Encounter for examination following treatment at hospital; Encounter for staple removal; Polypharmacy; Overweight (BMI 25.0-29.9); Acute conjunctivitis, unspecified acute conjunctivitis type, unspecified lateralityStart: 09-05-2024 End: 51-77-5534Vsvkfz flowsKamaljit Hernandez MD Work Phone: noms CI FM 100Start: 09-05-2024 End: 44-72-2547Vvnyaz flowsKamaljit Hernandez MD Work Phone: NOMS CI FM 100Start: 09-03-2024 End: 02-96-2530Hzegzndxr encounterShannen Velazquez RN Work Phone: noms POPULATION HEALTHComment on above:Med Refill Start: 08-20-2024 End: 01-57-4485Cocmyl outpatient visit 25 minutesGrayson Hernandez MD Work Phone: noms CI FM 100Comment on above:Primary hypertension ([facility]) (Primary Dx); Chronic diastolic congestive heart failure, NYHA class 1 ([facility]); Mixed hyperlipidemia ([facility]) ; Hypokalemia; Hypomagnesemia; Type 2 diabetes mellitus with stage 4 chronic kidney disease, without long-term current use of insulin ([facility]); Type 2 diabetes mellitus with hyperglycemia, without long-term current use of insulin ([facility]); Polypharmacy; Edema, unspecified typeStart: 08-20-2024 End: 46-73-1473krmpldsqkzMJVGAS J HEMEYERNot AvailableStart: 08-20-2024 End: 86-60-1320Bxuksx Dewey Hernandez MD Work Phone: NOMS CI FM 100Start: 08-20-2024 End: 23-65-8293Zwwkej Dewey Hernandez MD Work Phone: NOMS CI FM 100Start: 07-30-2024 End: 34-05-4078sxlwnitlwyJPGBWY J HEMEYERNot AvailableStart: 07-30-2024 End: 62-99-1459Uquqqi Dewey Hernandez MD Work Phone: NOMS CI FM 100Start: 07-30-2024 End: 60-66-4840Uvhhhs Dewey Hernandez MD Work Phone: NOMS CI FM 100Start: 07-06-2024 End: 27-33-7026Czafsn outpatient visit 15 minutesPhilip Juanita Agarwal Work Phone: [facility] [place]layStart: 25-88-5330egdiossracGzqzqi T [facility] Centertart: 06-15-2024 End: 87-85-2143Wbfutoxwg Result Rashaad Hernandez MD Work Phone: noms External Department UnsolicitedStart: 06-15-2024 End: 05-04-1510Bvnliqvxx Result Rashaad Hernandez MD Work Phone: NOZR External Department UnsolicitedStart: 06-14-2024 End: 94-95-6664QckgjkPdpidr J Hemeyer MD Work Phone: NOMS CI FM 100Comment on above:Diastolic congestive heart failure, NYHA class 1, unspecified congestive heart failure chronicity (C MS/HCC)Start: 06-04-2024 End: 31-80-2939Mnjturchv Rashaad Hernandez MD Work Phone: noms CI FM 100Start: 05-28-2024 End: 04-56-4280PpwwkjPdcnqr Wilkinson RN Work Phone: NOKV POPULATION HEALTHComment on above:Acquired hypothyroidism (CMS/HCC); Benign essential hypertension (CMS/HCC)Start: 05-24-2024 End: 93-98-0643Hhwbgi flowsKamaljit Hernandez MD Work Phone: NOMS CI FM 100Start: 05-24-2024 End: 27-24-7597Hgwvhs flowsKamaljit Hernandez MD Work Phone: noMS CI FM 100Start: 05-24-2024 End: 83-48-8357mnvbqbnqppRIWBMN J HEMEYERNot AvailableStart: 05-03-2024 End: 29-12-2662Yqlgruzlt aRshaad Hernandez MD Work Phone: NOMS CI FM 100Start: 05-02-2024 End: 26-59-9285Dqnzbujlk Result EncounterGeneric External Data ProviderNOMS External Department UnsolicitedStart: 05-02-2024 End: 60-76-0580Ullhbhauj Result EncounterGeneric External Data ProviderNOMS External Department UnsolicitedStart: 04-30-2024 End: 35-40-2958rkbjyqnjdgIBTCFM J HEMEYERNot AvailableStart: 04-30-2024 End: 71-83-7289Icgqvc outpatient visit 15 minutesGrayson Hernandez MD Work Phone: NOMS CI FM 100Comment on above:Acute cystitis without hematuria (Primary Dx); Multiple falls; Generalized weakness; Disorientation; Sequela, post-stroke; Overweight (BMI 25.0-29.9)Start: 04-10-2024 End: 12-29-0560Caqqrct encounter Jagjit Hernandez MD Work Phone: [facility] [place] Work Phone: Start: 04-10-2024 End: 16-52-1925rxffvpwfjgQtfjvn J Hemeyer MD Work Phone: [facility] Work Phone: Start: 04-10-2024 End: 40-37-4533xkaklrefojAvnenv J Hemeyer MD Work Phone: [facility] Work Phone: Start: 04-10-2024 End: 12-84-0697Tofmlid encounter procedureGrayson Hernandez MD Work Phone: [facility] [place] Work Phone: Start: 03-08-2024 End: 24-03-0703Chkohtx encounter procedureGrayson Hernandez MD Work Phone: [facility] [place] Work Phone: Start: 02-21-2024 End: 95-49-3123Thyvvx outpatient visit 25 minutesEdshivam Hernandez MD Work Phone: NOMS CI FM 100Comment on above:Chronic organic brain syndrome; Anxiety associated with depression; AgitationStart: 02-21-2024 End: 96-69-2354Qvlfki flowsKamaljit Hernandez MD Work Phone: NOMS CI FM 100Start: 02-21-2024 End: 62-20-1543Jpkzaz flowsKamaljit Hernandez MD Work Phone: noMS CI FM 100Start: 02-15-2024 End: 51-36-6577LniixlIzxtnb J Hemeyer MD Work Phone: NOMS CI FM 100Comment on above:Anxiety associated with depressionStart: 02-10-2024 End: 54-37-9099cozeuweoknYluyye Wilkinson RN Work Phone: NOIN POPULATION HEALTHStart: 02-09-2024 End: 14-31-2151MbkyapYhubdy J Hemeyer MD Work Phone: NOIN POPULATION HEALTHComment on above:Mixed hyperlipidemia (CMS/HCC)Start: 01-03-2024 End: 97-68-5365Xjzppqjgm Rashaad Hernandez MD Work Phone: NOIN CI FM 100Start: 11-02-2023 End: 67-33-4166Qytwpqnqe Result EncounterGeneric External Data ProviderNOMS External Department UnsolicitedStart: 11-02-2023 End: 63-42-1418Xjtfkppad Result EncounterGeneric External Data ProviderNOIN External Department UnsolicitedStart: 09-27-2023 End: 31-01-8436Puzhedyghv hospital visit by physicianAnshul Irizarry MD Work Phone: [facility] Nuclear MedicineComment on above: SOB (shortness of breath)ArrivedStart: 09-01-2023 End: 96-19-3260gzdoryjpluBOZA S VIGESAAMercy Eleva HospitalStart: 09-01-2023 End: 59-01-9579Cmfykmjsst hospital visit by Svetlana Lei MD Work Phone: [facility] Cardiac Cath/IR LabComment on above:Chronic a-fib (HCC)Start: 07-07-2023 End: 97-95-4713MhlFrancisca Wiseman Work Phone: [facility] [place]kyStart: 53-39-3660Ikvzgezrd encounterPortia Kim Physicians NeurologyStart: 30-53-8696ZkhblwUmigvn Wilkinson RN Work Phone: NOMS BNS FMComment on above:Diastolic congestive heart failure, NYHA class 1, unspecified congestive heart failure chronicity (C MS/HCC)Start: 06-95-5947Zwlopccrm encounterAlma Grayson Physicians NeurologyComment on above:follow up appointmentStart: 07-25-2022 End: 94-61-1231mlrhbzymtiFPEDTBW D KATKOFacility:W4Vhekx: 07-17-2022 End: 09-30-4869mrhxrmghfnOqxczniii Chuck Other [facility] [employer] Other Start: 19-87-5037Vnrsbq outpatient visit 15 minutes Flores ChuckFPG Urgent Care ClydeStart: 06-23-2022 End: 26-82-0805Qwazm M Alkaliby Work Phone: RVDaniele SanduskyStart: 17-98-5738zuetdhebogMM EDWARD HEMEYER .Facility:G6Bsjdo: 12-30-2021 End: 80-32-8555wbumsxusinYL ABHI Saldana WESTFacility:X7Rnigg: 12-16-2021 End: 56-36-1552szzycwcnckPJ EDWARD HEMEYER .Facility:B1Inovj: 12-10-2021 End: 82-23-9844puerrchnkjOQ EDSHIVAM HEMECRISTIN .Facility:O6Dmtgd: 09-07-2021 End: 31-90-7402Jiiimgbcor hospital visit by physicianJohn [facility]. [facility] EkgMWHZ EKGComment on above:PalpitationsStart: 08-17-2021 End: 38-71-7171pvxpczfkfmTQ EDWARD HEMEYER .Facility:C1Bzxyx: 08-11-2021 End: 77-95-6399vaetztnystUTVZQC SAMSA .Facility:Q9Timxd: 06-22-2021 End: 92-92-3311tdrihrpvhdWtlkid Felter Other [facility] [employer] Other Start: 01-51-1682Vzhdbk outpatient visit 25 minutes Martha RendonFPAnum Pain Management Bone CreekStart: 05-12-2021 End: 09-64-5253Ccghhrr K Dabbs Work Phone: RVDaniele DossuskyStart: 06-28-2020 End: 20-60-9374Rwshxq Lenora Bermeo Work Phone: [facility] Start: 04-23-2020 End: 69-53-4011Pmiiyei K Dabbs Work Phone: [facility] [place]kyStart: 02-25-2020 End: 62-22-8394Yrhejnbsmw hospital visit by Bel Molina EKG Comment on above:Kidney insufficiency; Hypertension, unspecified type; Shortness of breath; Hyperlipidemia, unspecified hyperlipidemia type; Vitamin D deficiency disease; Other specified diabetes mellitus with other specified complication, unspecified whether fpc insulin use (HCC)Start: 10-05-2019 End: 17-52-8571Wlirkonbhh hospital visit by Bel Molina RESPIRATORY THERAPYComment on above:Aortic valve stenosis, etiology of cardiac valve disease unspecified; Shortness of breath; Hypertension, unspecified type; Hyperlipidemia, unspecified hyperlipidemia type; Vitamin D deficiency diseaseStart: 81-56-5015nubvdmtlpcYLQOCFQ PROVIDER [facility]: 07[facility] End: 99-92-9749Tgygvxgfks and management of inpatientDAALLEGHANY HEALTHNOOhio State Health Systemtart: 07-03-2019 End: 55-49-1053Haelzwdfcg and management of inpatientDaniel Dibardino Work Phone: stvz CAR 1Start: 06-29-2019 End: 01-54-0140Xbkytyersy hospital visit by [facility] Eleva CT ScanComment on above:CAD, multiple vessel; Pre-op testingCAD, multiple vessel; Pre-op testing; Bilateral carotid bruitsStart: 06-27-2019 End: 51-76-5607Ghdtbvo encounter procedureVASILIY PIÑAKentfield Hospitaltart: 06-27-2019 End: 40-95-8631Pzmnwyssrw hospital visit by Glenna 428STVZ EchoComment on above:ArrivedStart: 06-25-2019 End: 54-65-9037Llrzoqk encounter procedureDANIEL [facility] CENTERARDINOOhio State Health Systemtart: 06-25-2019 End: 42-79-2474Reyazvcehr hospital visit by Glenna [address] [place] [address] RadiologyComment on above:ArrivedStart: 06-06-2019 End: 56-71-3572Phhdume encounter procedureSalem Regional Medical Centertart: 06-06-2019 End: 90-87-1149Lgppstzmps hospital visit by physicianTasia David [facility] Centerdex[facility] Work Phone: [facility] Procedural Care UnitStart: 23-63-0153Mtlhary encounter procedureGalion [facility] Start: 42-93-3030Ozjwfhb encounter procedureSalem Regional Medical Centertart: 05-10-2019 End: 93-80-5707Gaspfcaikb hospital visit by Bel Hernandez MD Other Phone: mwhZ RESPIRATORY THERAPYComment on above: Hypertension, unspecified type; Hyperlipidemia, unspecified hyperlipidemia type; Other specified diabetes mellitus with other specified complication, unspecified whether ad terminal makeup operator insulin use (HCC); Vitamin D deficiency diseaseSystolic murmur; Moderate mitral regurgitation; Severe aortic stenosisStart: 04-18-2019 End: 20-64-6042Cxijoer K Brianne Work Phone: [facility] SelamconcepciónyStart: 04-19-2018 End: 55-80-0289Wpxdvfq K Brianne Work Phone: [facility] [place]Start: 01-19-2017 End: 97-57-4056Yxkpoas K Brianne Work Phone: [facility] [place]kyStart: 11-03-2015 End: 86-60-4770Ycvpoge K Brianne Work Phone: rva [place]kyStart: 11-04-2014 End: 59-96-8171Jsg K Orgel Work Phone: [facility] [place]kyStart: 10-29-2013 End: 98-52-2186Ltr K Orgel Work Phone: [facility] [place]kyStart: 10-20-2012 End: 86-62-7905Rnz K Orgel Work Phone: rvA [place]kyStart: 08-16-2011 End: 48-76-5213Atk K Orgel Work Phone: rvA [place]kyStart: 04-26-2011 End: 14-27-1631Pmh K Orgel Work Phone: [facility] [place] Procedures DateProcedureProcedure DetailPerforming ClinicianStart: 70-13-2373VIS URINE T PROTEIN CREAT RATIOGeneric External Data ProviderStart: 64-76-1035DTO BASIC METABOLIC PANELGrayson Hernandez MD Work Phone: Start: 96-01-3581PRP PHOSPHOROUSEdshivam Hernandez MD Work Phone: Start: 03-37-0525GWH MAGNESIUMGeneric External Data ProviderStart: 62-75-8489Bwxgh of magnesiumPamela S Amanda DIVER ASSISTANT - DENTAL PROFESSIONAL Work Phone: Start: 48-88-0509PKJ 12-LEADGeneric External Data ProviderStart: 54-42-9532FUO CBC WITH AUTO DIFFGeneric External Data Provider Start: 95-13-6134Ukay tthrc r-t 2d w/wom-mode compl spec&colr dGreg Carlos Eduardo Irizarry MD Work Phone: Start: 54-09-7522VDVH CBC WITH PLATELET NO DIFFERENTIALGeneric External Data ProviderStart: 07-06-2024 End: 97-51-0396Ttxjanwpksbq ophthalmic imaging retinaPhilip Stefano ChangStart: 66-79-6202HEF BASIC METABOLIC PANELGrayson Hernandez MD Work Phone: Start: 83-48-5811ZAH 12-LEADGeneric External Data ProviderStart: 38-13-3741TOX CBC WITH AUTO DIFFGeneric External Data Provider Start: 55-19-1833Xzyqmwwyjyqeywz of bilateral kidneysGrayson Hernandez MD Work Phone: Start: 13-90-0133TJI 12-LEADGeneric External Data ProviderStart: 77-61-8874Imyiolzaoh spect multiple studiesGreg Carlos Eduardo Irizarry MD Work Phone: Start: 07-07-2023 End: 66-69-9484Dnpsivezsibg ophthalmic imaging retinaPhilip Stefano Chang MDStart: 43-39-6985Mwyjluu of coronary artery bypass graftingHx of CABGShannen Velazquez RN Work Phone: Start: 06-23-2022 End: 41-43-0843Fdqnkblydiup ophthalmic imaging retinaPhilip Stefano Chang MDStart: 83-06-2100Darab depression screening assessmentAlma Hankins RNStart: 05-26-2021 MammographyShannen Velazquez RN Work Phone: Start: 05-12-2021 End: 18-82-7936Mfevihfjryvk ophthalmic imaging retinaPhilip Stefano Chang MDStart: 69-16-3737PoxddgyostcIyhdwj Wilkinson RN Work Phone: Start: 04-23-2020 End: 02-94-9088Dqxmymozzzgj ophthalmic imaging retinaPhilip Stefano Chang MDStart: 55-27-6466UAWHIPHZBGG DIBARDINOStart: 87-05-4612MJWCHNI NUTRITION SUPPLEMENTS CARO DIBARDINOStart: 88-26-6412Gpzyktb blood reagent stripDANIEL DIBARDINO Start: 97-01-8471FJHYUQEKKPY DIBARDINOStart: 00-26-5708Xpmamgd blood reagent stripDaniel Dibardino Work Phone: Start: 07-26-8144TZCRFFQAY PATIENTDANIEL DIBARDINO Start: 00-00-0728VYAJLYFZUJS DIBARDINOStart: 69-19-9436GJOIIYLH OXYGEN THERAPY PROTOCOLDANIEL DIBARDINOStart: 29-92-4516Dabknxy blood reagent stripDANIEL DIBARDINOStart: 96-91-9790Spxjj of magnesiumDANIEL DIBARDINOStart: 07-24-2019 Basic metabolic panel calcium totalDANIEL DIBARDINOStart: 76-35-0122Dnirr count complete automatedDANIEL DIBARDINOStart: 61-33-6846Vvqejtfphlg timeDANIEL DIBARDINOStart: 42-11-6846Qyvncrszlddvui time partial plasma/whole bloodDANIEL DIBARDINOStart: 26-96-9179Ikniwbm blood reagent stripDaniel Dibardino Work Phone: Start: 29-88-5013Knodb of magnesiumDaniel Dibardino Work Phone: Start: 24-67-9825Geuxx metabolic panel calcium total Caro Dibardino Work Phone: Start: 36-12-7640Gqwhx count complete automatedDaniel Dibardino Work Phone: Start: 65-34-2386Qxzollnongu timeDaniel Dibardino Work Phone: Start: 46-69-3560Qcodljktegugkx time partial plasma/whole bloodDaniel Dibardino Work Phone: Start: 30-24-3504LYMACPFFTHA DIBARDINOStart: 01-97-4540AIKLIA INTAKE AND OUTPUTDANIEL DIBARDINOStart: 18-35-9388FRONBN AND OUTPUTDANIEL DIBARDINOStart: 06-69-2953HJKUIKMFMSW DIBARDINOStart: 07-23-2019 Glucose blood reagent stripDANIEL DIBARDINOStart: 71-87-8751APKEJDIPHDR DIBARDINOStart: 36-23-7023Dqlrdvr blood reagent stripDaniel Dibardino Work Phone: Start: 26-59-4571Yebxkfz blood reagent stripDANIEL DIBARDINOStart: 90-50-1525KKVGHSGJBEN DIBARDINOStart: 42-48-9265Hsyejjn blood reagent stripDaniel Dibardino Work Phone: Start: 95-06-8079AYQAHSZYDSN DIBARDINOStart: 17-34-4771Zfqkdud blood reagent stripDANIEL DIBARDINOStart: 94-05-3709BSRX CARB CONTROLDANIEL DIBARDINOStart: 49-95-9941Ehmdgxf blood reagent stripDaniel Dibardino Work Phone: Start: 50-64-3283QRHYDXLFTZS DIBARDINOStart: 56-77-6558FYUMAMEC OXYGEN THERAPY PROTOCOLDANIEL DIBARDINOStart: 07-23-2019 Comprehensive metabolic panelDANIEL DIBARDINOStart: 22-40-0440Ouwzrha blood reagent stripDANIEL DIBARDINOStart: 88-28-3304Eqaoj of magnesiumDANIEL DIBARDINO Start: 02-06-5859Ijxsj of phosphorus inorganicDANIEL DIBARDINOStart: 07-23-2019 Basic metabolic panel calcium totalDANIEL DIBARDINOStart: 65-80-2229Tblcr count complete automatedDANIEL DIBARDINOStart: 63-76-5806Zqpvxbsewyk timeDANIEL DIBARDINOStart: 02-80-1005Kmbbwajyonmkdp time partial plasma/whole bloodDANIEL DIBARDINOStart: 09-19-1754VXHNR METABOLIC PANEL W/ REFLEX TO MG FOR LOW KSindhu Avula Work Phone: Start: 38-19-5325Iojtagg blood reagent stripDaniel Dibardino Work Phone: Start: 33-64-3604Hntms of magnesiumDaniel Dibardino Work Phone: Start: 81-20-4796Juxgm of phosphorus inorganicDaniel Dibardino Work Phone: Start: 75-01-6591Kwrsm metabolic panel calcium total Caro Dibardino Work Phone: Start: 18-03-6745Wkzcv count complete automatedDaniel Dibardino Work Phone: Start: 48-27-7695Sskubwhegmd timeDaniel Dibardino Work Phone: Start: 38-89-9171Bguxdhezfplrtr time partial plasma/whole bloodDaniel Dibardino Work Phone: Start: 06-88-9635SKXXEVTQLIO DIBARDINOStart: 41-67-1086VLYAWP INTAKE AND OUTPUTDANIEL DIBARDINOStart: 63-96-2389FCLFAT AND OUTPUTDANIEL DIBARDINOStart: 29-46-4989QRDHWLOGIII DIBARDINOStart: 07-22-2019 Potassium serum plasma/whole bloodDANIEL DIBARDINOStart: 42-37-1107Adtsemg blood reagent stripDANIEL DIBARDINOStart: 62-24-9927PWOGIICSUTG DIBARDINOStart: 79-37-3614Apifxkaii serum plasma/whole bloodDaniel Dibardino Work Phone: Start: 75-29-0146Plihmxh blood reagent stripDaniel Dibardino Work Phone: Start: 53-89-5375YLWEGNZWDYA DIBARDINOStart: 47-76-7481BJCIXHAVJOS DIBARDINOStart: 86-26-7320Jwmbpla blood reagent strip CARO DIBARDINOStart: 03-36-5392BEH CLINICAL BEDSIDE SWALLOW EVALUATION AND TREATMENTDANIEL DIBARDINOStart: 50-56-5879XMJ EVAL AND TREATDANIEL DIBARDINO Start: 43-30-8895Luzygpv blood reagent stripDaniel Dibardino Work Phone: Start: 86-75-1452Wzbluv and language therapy regime Kanwal Anand Work Phone: Start: 97-52-6387DYMJPFRNVNZ DIBARDINOStart: 88-97-1234ATIHPJMJ OXYGEN THERAPY PROTOCOLDANIEL DIBARDINOStart: 07-22-2019 Glucose blood reagent stripDANIEL DIBARDINOStart: 39-62-9212Ktk routine ecg w/least 12 lds w/i&rDANIEL DIBARDINOStart: 49-68-9218XIX REPORTDANIEL DIBARDINO Start: 07-22-2019 End: 21-32-3023Ijmdppr blood reagent stripDaniel Dibardino Work Phone: Start: 85-55-2514Hoa routine ecg w/least 12 lds w/i&r Nuha Coronel Work Phone: Start: 68-80-5486SYL REPORTHpf ScanningStart: 19-47-6059Zruzf of magnesiumDANIEL DIBARDINOStart: 58-00-8666Bpqox metabolic panel calcium totalDANIEL DIBARDINOStart: 82-56-3981Ghdmj count complete automatedDANIEL DIBARDINOStart: 80-84-9994Eucipwntrbl timeDANIEL DIBARDINOStart: 98-02-2978Siyrtxukomkspn time partial plasma/whole bloodDANIEL DIBARDINOStart: 36-71-9055GRHGPXLRMFK DIBARDINOStart: 69-58-7524Inzhn of magnesiumDaniel Dibardino Work Phone: start: 56-49-4542Tephz metabolic panel calcium total Caro Dibardino Work Phone: Start: 50-05-0566Lxmms count complete automatedDaniel Dibardino Work Phone: Start: 80-08-7314Megpmtpimyz timeDaniel Dibardino Work Phone: Start: 72-35-1074Qhugzmmpohyvuv time partial plasma/whole bloodDaniel Dibardino Work Phone: Start: 20-11-5423FLUFHZ INTAKE AND OUTPUTDANIEL DIBARDINOStart: 57-38-5701EBOYLX AND OUTPUTDANIEL DIBARDINOStart: 07-22-2019 BIPAPDANIEL DIBARDINOStart: 47-50-7848Lrbcntvhln exam chest single viewDANIEL DIBARDINOStart: 13-24-2186JJXKONQRPGG DIBARDINOStart: 12-09-0848TVARG GAP (CALC) POCDANIEL DIBARDINOStart: 22-34-7110CWUKSDWJ BLOOD GAS, POCDANIEL DIBARDINO Start: 05-68-4233Ttcio count hemoglobinDANIEL DIBARDINOStart: 25-25-7615Ivtjokx ionizedDANIEL DIBARDINOStart: 14-77-3704Ffbceguh other sourceDANIEL DIBARDINO Start: 57-38-3214ZLVNTZWXFH W/GFR POINT OF CAREDANIEL DIBARDINOStart: 07-21-2019 Gluc bld gluc mntr dev cleared fda spec home useDANIEL DIBARDINOStart: 63-44-0643ENQXMX ACID,POINT OF CAREDANIEL DIBARDINOStart: 77-79-2450Yebvljhwa serum plasma/whole bloodDANIEL DIBARDINOStart: 95-52-0963Wvliyd serum plasma or whole bloodDANIEL DIBARDINOStart: 14-63-8969CSL DRAWDANIEL DIBARDINOStart: 01-09-5702Ynccfrrvdvfybo time partial plasma/whole bloodDANIEL DIBARDINOStart: 54-11-0207Qfdztiyoua exam chest single viewJames A Eileen Work Phone: Start: 14-91-4319TWFUX GAP (CALC) POCDaniel Dibardino Work Phone: Start: 90-48-7379FYBKPQZB BLOOD GAS, POCDaniel Dibardino Work Phone: Start: 63-66-0882Hredj count hemoglobinDaniel Dibardino Work Phone: Start: 78-54-9786SDUGAQM, IONIC (POC)Caro Dibardino Work Phone: Start: 45-33-9724Wuetfval [Moles/Vol]Caro Dibardino Work Phone: Start: 40-42-4233GKQGTHBRNZ W/GFR POINT OF CAREDaniel Dibardino Work Phone: Start: 01-97-5982Gquo bld gluc mntr dev cleared fda spec home useDaniel Dibardino Work Phone: Start: 50-27-6455ZOMZVZ ACID,POINT OF CAREDaniel Dibardino Work Phone: Start: 99-00-6954Vgrfrwsas [Moles/Vol]Caro Dibardino Work Phone: Start: 26-31-9981Sqrzda [Moles/Vol]Caro Dibardino Work Phone: Start: 72-69-8826QVE DRAWDaniel Dibardino Work Phone: Start: 89-31-7072Fermxmyytrycbl time partial plasma/whole bloodDaniel Dibardino Work Phone: Start: 03-65-7606Nuoofdb blood reagent stripDANIEL DIBARDINOStart: 67-38-6941Xiimsao blood reagent stripDaniel Dibardino Work Phone: Start: 96-98-6087Rligrdv blood reagent stripDANIEL DIBARDINOStart: 42-21-2022Xbtlzkkbwxlarc time partial plasma/whole bloodDANIEL DIBARDINOStart: 13-13-2173Gixupot blood reagent stripDaniel Dibardino Work Phone: Start: 16-98-1969YZPSPQIM OXYGEN THERAPY PROTOCOL CARO DIBARDINOStart: 95-02-2469Ybwvjzs blood reagent stripDANIEL DIBARDINO Start: 78-45-4474Ggiwdeyohulogg time partial plasma/whole bloodDaniel Dibardino Work Phone: Start: 32-77-8887Tdowozp blood reagent stripDaniel Dibardino Work Phone: Start: 55-27-2265Ycthc of magnesiumDANIEL DIBARDINO Start: 36-89-9741Dlmfc metabolic panel calcium totalDANIEL DIBARDINOStart: 06-27-6900Mybja count complete automatedDANIEL DIBARDINOStart: 07-21-2019 Prothrombin timeDANIEL DIBARDINOStart: 37-87-5029Vhmhbolitmtyct time partial plasma/whole bloodDANIEL DIBARDINOStart: 68-13-8197Xppov of magnesiumDaniel Dibardino Work Phone: Start: 29-03-4966Ijyux metabolic panel calcium total Caro Dibardino Work Phone: Start: 09-52-8130Ezujm count complete automatedDaniel Dibardino Work Phone: Start: 59-29-2017Pisupilvrqw timeDaniel Dibardino Work Phone: Start: 38-37-8272Xnthdsxcaphvac time partial plasma/whole bloodDaniel Dibardino Work Phone: Start: 38-56-0695Zoz routine ecg w/least 12 lds w/i&r CARO DIBARDINOStart: 66-34-4234BRQIOI INTAKE AND OUTPUTDANIEL DIBARDINOStart: 47-80-2917HODINQ AND OUTPUTDANIEL DIBARDINOStart: 04-12-5319Jgssdbh blood reagent stripDANIEL DIBARDINOStart: 10-14-3869Lfsjtvf blood reagent stripDaniel Dibardino Work Phone: Start: 15-45-6262Zeuslks blood reagent stripDaniel Dibardino Work Phone: Start: 50-08-6825Mwsidld blood reagent stripDANIEL DIBARDINOStart: 83-22-0378Zxkhivielb exam abdomen 1 viewDANIEL DIBARDINOStart: 17-89-2340Wxjflww blood reagent stripDaniel Dibardino Work Phone: Start: 01-66-0538Jkcpzfepyp exam abdomen 1 viewSalil Avasthi Work Phone: Start: 20-17-4263Qouvzrh blood reagent stripDANIEL DIBARDINOStart: 19-66-8256EJGNGJQW PATIENTDANIEL DIBARDINOStart: 95-11-8223JS CONSULT TO INTERNAL MEDICINEDANIEL DIBARDINOStart: 51-90-2895JQWOEVOYNBB TUBE INSERTIONDANIEL DIBARDINOStart: 48-62-9720Prtlmeg blood reagent stripDaniel Dibardino Work Phone: Start: 94-21-6441CHDATMJK OXYGEN THERAPY PROTOCOL CARO DIBARDINOStart: 79-42-5036VLR CLINICAL BEDSIDE SWALLOW EVALUATION AND TREATMENTDANIEL DIBARDINOStart: 28-54-6566TN EVAL AND TREATDANIEL DIBARDINO Start: 68-30-6528Rgffy of magnesiumDANIEL DIBARDINOStart: 40-58-1132Szlgm of phosphorus inorganicDANIEL DIBARDINOStart: 53-37-6769Rnqem metabolic panel calcium totalDANIEL DIBARDINOStart: 40-31-8367Kvtzq count complete automated CARO DIBARDINOStart: 90-26-2925Bykxwbefazi timeDANIEL DIBARDINOStart: 42-14-4023Pvtwocauxpabeh time partial plasma/whole bloodDANIEL DIBARDINOStart: 92-63-2293Zxk routine ecg w/least 12 lds w/i&rDANIEL DIBARDINOStart: 07-20-2019 EKG REPORTDANIEL DIBARDINOStart: 15-88-5574Gshvxdi blood reagent stripDANIEL DIBARDINOStart: 71-18-6879Gkqgy of magnesiumDaniel Dibardino Work Phone: Start: 13-12-6164Lxxch of phosphorus inorganicDaniel Dibardino Work Phone: Start: 39-66-4783Eszns metabolic panel calcium total Caro Dibardino Work Phone: Start: 38-41-1121Ievrz count complete automatedDaniel Dibardino Work Phone: Start: 62-81-0879Pktygpgzcee timeDaniel Dibardino Work Phone: Start: 60-89-5613Topbighmvrsovj time partial plasma/whole bloodDaniel Dibardino Work Phone: Start: 33-98-3317Tea routine ecg w/least 12 lds i&r onlyMobasser Homer Work Phone: Start: 18-62-1682EGC REPORTHpf ScanningStart: 01-78-9398Oxeugoz blood reagent stripDaniel Dibardino Work Phone: Start: 65-69-8264Bmzccnieowoetn time partial plasma/whole bloodDANIEL DIBARDINOStart: 70-33-1565URGBNP INTAKE AND OUTPUT CARO DIBARDINOStart: 81-31-5653TMCBCQ AND OUTPUTDANIEL DIBARDINOStart: 25-59-3756Tfdgofhlceibov time partial plasma/whole bloodDaniel Dibardino Work Phone: Start: 43-23-5128Dusaoxu blood reagent stripDANIEL DIBARDINOStart: 84-34-6765Ambyjvdqygqxkf time partial plasma/whole bloodDANIEL DIBARDINOStart: 35-73-8215Olhjvmtt screenDaniel DibardinoStart: 07-19-2019 Glucose blood reagent stripDaniel Dibardino Work Phone: Start: 77-44-8909Sulmtfpfvtkwft time partial plasma/whole bloodDaniel Dibardino Work Phone: Start: 02-18-0286Rlcbydy blood reagent stripDANIEL DIBARDINOStart: 12-05-8664DXT EXTERNAL REFERRAL TO CARDIAC REHABDANIEL DIBARDINO Start: 10-07-4680Auafccwumu exam chest single viewDANIEL DIBARDINOStart: 75-25-4431Oxmzalr blood reagent stripDaniel Dibardino Work Phone: Start: 13-34-0416VKJXSBWWXALPLTBQ DIBARDINOStart: 74-52-4858Cyjcmdpluk exam chest single viewNicaguilar Bethea Work Phone: Start: 11-92-8372BNKTQTJTJDIqquq K Rajesh Work Phone: Start: 73-20-4352Dsjfaalbwtsfuf time partial plasma/whole bloodDANIEL DIBARDINOStart: 96-55-7070Ymxbfbp blood reagent strip CARO DIBARDINOStart: 78-84-9298Ejfjjqtbnudwpf time partial plasma/whole blood Vasiliy Bethea Work Phone: Start: 77-60-4902Lybunjv blood reagent stripDaniel Dibardino Work Phone: Start: 98-02-3326Jpyrfrstdc exam abdomen 1 viewDANIEL DIBARDINOStart: 00-75-1321HSKYYENI OXYGEN THERAPY PROTOCOLDANIEL DIBARDINOStart: 83-64-2548Qzyufonnia exam abdomen 1 viewDaniel Dibardino Work Phone: Start: 04-68-3323Sovllzr blood reagent stripDANIEL DIBARDINOStart: 10-54-1271Loc routine ecg w/least 12 lds w/i&rDANIEL DIBARDINO Start: 17-55-9270VWX REPORTDANIEL DIBARDINOStart: 83-76-8389Vwofjmx blood reagent stripDaniel Dibardino Work Phone: Start: 87-52-9768Juh routine ecg w/least 12 lds i&r onlyMobassbette Coronel Work Phone: Start: 15-37-0012ZTK REPORTHpf ScanningStart: 39-42-0151Gdycd of magnesiumDANIEL DIBARDINOStart: 41-52-6108Qjyvd metabolic panel calcium totalDANIEL DIBARDINOStart: 23-02-0412Llhle count complete automatedDANIEL DIBARDINOStart: 03-00-5979Cclzbjqvewm timeDANIEL DIBARDINOStart: 67-17-5611Vbopjbaxhtzngc time partial plasma/whole bloodDANIEL DIBARDINOStart: 78-82-7889MKXYIWLN BLOOD GAS, POCDANIEL DIBARDINOStart: 02-42-3034Eito bld gluc mntr dev cleared fda spec home useDANIEL DIBARDINOStart: 73-48-6657Pmlva of magnesiumDaniel Dibardino Work Phone: Start: 79-68-5273Rzgyx metabolic panel calcium total Caro Dibardino Work Phone: Start: 94-51-3676Frafd count complete automatedDaniel Dibardino Work Phone: Start: 69-47-5935Ttbfpqmcqfb timeDaniel Dibardino Work Phone: Start: 69-16-5770Dkihmruawkjlov time partial plasma/whole bloodDaniel Dibardino Work Phone: Start: 88-48-1759HIYZJWLV BLOOD GAS, POCDaniel Dibardino Work Phone: Start: 72-78-7540Qqwf bld gluc mntr dev cleared fda spec home useDaniel Dibardino Work Phone: Start: 67-37-3179DETBWK INTAKE AND OUTPUTDANIEL DIBARDINOStart: 00-88-3800OAKGHO AND OUTPUTDANIEL DIBARDINOStart: 07-19-2019 Glucose blood reagent stripDANIEL DIBARDINOStart: 54-92-8240Pupncvy blood reagent stripDaniel Dibardino Work Phone: Start: 83-96-1993Muusovq blood reagent stripDaniel Dibardino Work Phone: Start: 44-92-9682Oqbfxxz blood reagent stripDANIEL DIBARDINOStart: 18-43-3325Yboxnyx blood reagent stripDaniel Dibardino Work Phone: Start: 66-44-2140KKCPBMSEQF NON-VIOLENT OR PMJ-BBAO-KBYCLEOJBDFDPHGCC DIBARDINOStart: 93-67-0928Ncpfjwe blood reagent strip CARO DIBARDINOStart: 06-40-1559Tkuoodc blood reagent stripDaniel Dibardino Work Phone: Start: 07-20-4172Arffoqf blood reagent stripDANIEL DIBARDINOStart: 07-94-0428AUJLNPKZ OXYGEN THERAPY PROTOCOLDANIEL DIBARDINOStart: 59-40-4748Yunmdygcoy exam chest single viewDANIEL DIBARDINOStart: 15-36-8953Dwp routine ecg w/least 12 lds w/i&rDANIEL DIBARDINOStart: 29-86-2431ZUK REPORT CARO DIBARDINOStart: 14-85-7546Jzrapkp blood reagent stripDaniel Dibardino Work Phone: Start: 16-79-0488Cpstcfprgf exam chest single view Vasiliy A Bethea Work Phone: Start: 39-86-0187Czjyang blood reagent stripDaniel Dibardino Work Phone: Start: 49-43-4699Uee routine ecg w/least 12 lds i&r onlyMobasser Homer Work Phone: Start: 42-75-0435BWA REPORTHpf ScanningStart: 36-89-8746Zyinj of magnesiumDANIEL DIBARDINOStart: 70-21-0041Wjenf of phosphorus inorganicDANIEL DIBARDINOStart: 75-00-4054Iyexv metabolic panel calcium total CARO DIBARDINOStart: 71-53-7207Apyro count complete automatedDANIEL DIBARDINO Start: 91-35-6012Ymwgwhkgwsj timeDANIEL DIBARDINOStart: 34-30-8102Byjmpfczovxtjx time partial plasma/whole bloodDANIEL DIBARDINOStart: 68-68-3142WNXCEOCW BLOOD GAS, POCDANIEL DIBARDINOStart: 45-95-0082Hktqc of magnesiumDaniel Dibardino Work Phone: Start: 83-96-1894Lcsxv of phosphorus inorganicDaniel Dibardino Work Phone: Start: 99-80-4486Jvxow metabolic panel calcium total Caro Dibardino Work Phone: Start: 53-08-8508Adhzo count complete automatedDaniel Dibardino Work Phone: Start: 92-71-3820Kzduporknzw timeDaniel Dibardino Work Phone: Start: 24-67-4154Tmezxsgadczhdi time partial plasma/whole bloodSinan Marc Work Phone: Start: 38-87-5587CASRKMBH BLOOD GAS, POCDaniel Dibardino Work Phone: Start: 49-68-0161KDPVZY AND OUTPUTDANIEL DIBARDINO Start: 06-69-6922HSDXNA INTAKE AND OUTPUTDANIEL DIBARDINOStart: 07-17-2019 Glucose blood reagent stripDANIEL DIBARDINOStart: 53-16-3071Txqcjxz blood reagent stripDaniel Dibardino Work Phone: Start: 35-65-0399JLHNJSNTRJ NON-VIOLENT OR QAZ-MATA-UFTYDOYWBNPGTMYBV DIBARDINOStart: 63-68-9033DG CONSULT TO NEUROSURGERY CARO LOCKEARDINOStart: 29-53-1119Yvajeho blood reagent stripDANIEL DIBARDINO Start: 55-18-9425Smpofcp blood reagent stripDaniel Dibardino Work Phone: Start: 55-97-0901Ceiqtdqciuw blood/blood components CARO LOCKEARDINOStart: 06-98-7143Acjpkns blood reagent stripDANIEL DIBARDINO Start: 93-10-7635Ojplnxsfcid blood/blood componentsHpf ScanningStart: 07-17-2019 Glucose blood reagent stripDaniel Dibardino Work Phone: Start: 77-66-6258HPOXDFUR OXYGEN THERAPY PROTOCOL CARO LOCKEARDINOStart: 89-01-0325Mqs routine ecg w/least 12 lds w/i&rDANIEL DIBARDINOStart: 90-87-4830YBI REPORTDANIEL DIBARDINOStart: 73-77-9964Qwbsgfy blood reagent stripDANIEL DIBARDINOStart: 43-30-4379Jafunsolaw exam chest single viewDANIEL DIBARDINOStart: 94-80-7767Mdegh of magnesiumDANIEL DIBARDINOStart: 52-82-6406Mgfdw metabolic panel calcium totalDANIEL DIBARDINOStart: 07-17-2019 Blood count complete automatedDANIEL DIBARDINOStart: 83-00-4400Dlrawbmiulo time CARO DIBARDINOStart: 56-05-6852Qhtnbmytwzykgq time partial plasma/whole blood CARO DIBARDINOStart: 97-55-3808CGORSDMJ BLOOD GAS, POCDANIEL DIBARDINOStart: 31-64-3907Virk bld gluc mntr dev cleared fda spec home useDANIEL DIBARDINOStart: 93-36-3596Asq routine ecg w/least 12 lds i&r onlyMobawendy Coronel Work Phone: Start: 75-31-0413AER REPORTHpf ScanningStart: 37-05-4776Axhwamp blood reagent stripDaniel Dibardino Work Phone: Start: 26-79-1349Jkehqgrjdp exam chest single view Vasiliy Sanabria Bethea Work Phone: Start: 12-77-7997Djyhn of magnesiumDaniel Dibardino Work Phone: Start: 82-81-4259Gbvgv metabolic panel calcium total Caro Dibardino Work Phone: Start: 74-19-8151Ogeej count complete automatedDaniel Dibardino Work Phone: Start: 19-56-0575Cyjlmnlkuet timeDaniel Dibardino Work Phone: Start: 43-17-5999Dpoowsvvwrgxdi time partial plasma/whole bloodSinan Marc Work Phone: Start: 77-00-8556DMEGPSYK BLOOD GAS, POCDaniel Dibardino Work Phone: Start: 65-95-5745Cssx bld gluc mntr dev cleared fda spec home useDaniel Dibardino Work Phone: Start: 08-45-1909OZQKBM INTAKE AND OUTPUTDANIEL DIBARDINOStart: 33-24-6236ALSEYH AND OUTPUTDANIEL DIBARDINOStart: 07-17-2019 TRANSFUSE RED BLOOD CELLSDANIEL DIBARDINOStart: 87-70-3509WVZVWUQOE RED BLOOD CELLSMobasser Homer Work Phone: Start: 77-14-0061Kyukmmv blood reagent stripDANIEL DIBARDINOStart: 72-14-9655Jphzyveoesgbin time partial plasma/whole bloodDANIEL DIBARDINOStart: 93-21-3898Krofvzd blood reagent stripDaniel Dibardino Work Phone: Start: 99-22-8355Zsy brain brain stem w/o w/contrast materialDANIEL DIBARDINOStart: 37-62-1405Tiy spinal canal cervical w/o contrast matrlDANIEL DIBARDINOStart: 87-90-2211Rdtyvrxhvaiguu time partial plasma/whole bloodRaza Dakota Work Phone: Start: 43-66-4477Mzajfla blood reagent stripDANIEL DIBARDINOStart: 60-08-5567Iyd brain brain stem w/o w/contrast materialScotty Quinones Work Phone: Start: 67-45-2806Tmq spinal canal cervical w/o contrast matrlScottmarycruz Quinones Work Phone: Start: 33-39-6965HXSCXXLGPZ NON-VIOLENT OR FYJ-FAJB-HFKXVILWZQLAZSGUX DIBARDINOStart: 50-65-6612Kbxhysp blood reagent strip Caro Dibardino Work Phone: Start: 83-82-2464Coccf bld/component collj storage predepositedDANIEL DIBARDINOStart: 11-57-3074Gjkawdlwkdypxk time partial plasma/whole bloodDANIEL DIBARDINOStart: 90-72-8173ULCT AND SCREENDANIEL DIBARDINOStart: 62-13-1225Yaslphy blood reagent stripDANIEL DIBARDINOStart: 53-63-9043Tsa routine ecg w/least 12 lds w/i&rDANIEL DIBARDINOStart: 07-16-2019 BLOOD BANK SPECIMENDaniel Dibardino Work Phone: Start: 24-16-5745Vchml typing serologic aboRaza Dakota Work Phone: Start: 52-06-2897Xsdwndjrcpsvmf time partial plasma/whole bloodSinan Marc Work Phone: Start: 83-24-6733NAEVDXU RBC (CROSSMATCH)CARO DIBARDINOStart: 22-39-7430KDMWEOSBDOA REACTION MANAGEMENTDANIEL DIBARDINOStart: 25-85-4579IWRTPX INFORMED CONSENTDANIEL DIBARDINOStart: 98-96-8804Zvyivul blood reagent stripDaniel Dibardino Work Phone: Start: 12-44-0696YFCJXXKP OXYGEN THERAPY PROTOCOL CARO DIBARDINOStart: 66-55-8623Ujsuunj blood reagent stripDANIEL DIBARDINO Start: 73-48-7521Tojmknyozb exam chest single viewDANIEL DIBARDINOStart: 53-54-0947ZUWNBEWZ BLOOD GAS, POCDANIEL DIBARDINOStart: 69-45-5597Ifrl bld gluc mntr dev cleared fda spec home useDANIEL DIBARDINOStart: 55-59-8903Ahuxt of magnesiumDANIEL DIBARDINOStart: 66-11-2978Nrrtc of phosphorus inorganicDANIEL DIBARDINOStart: 42-73-3713Iadbf metabolic panel calcium totalDANIEL DIBARDINO Start: 08-66-8530Heioq count complete automatedDANIEL DIBARDINOStart: 07-16-2019 Prothrombin timeDANIEL DIBARDINOStart: 21-37-0644Kjzhllxfddztjy time partial plasma/whole bloodDANIEL DIBARDINOStart: 73-60-0074Mojxkbk blood reagent strip Caro Dibardino Work Phone: Start: 93-87-1644Akebycpfhl exam chest single view Vasiliy Sanabria Bethea Work Phone: Start: 35-90-4988GJZLDTQS BLOOD GAS, POCDaniel Dibardino Work Phone: Start: 04-50-7388Swwl bld gluc mntr dev cleared fda spec home useDaniel Dibardino Work Phone: Start: 14-11-7820Nrclx of magnesiumDaniel Dibardino Work Phone: Start: 76-04-1857Ubtbf of phosphorus inorganicDaniel Dibardino Work Phone: Start: 60-21-0421Lnqnz metabolic panel calcium total Caro Dibardino Work Phone: Start: 76-81-2676Rcago count complete automatedDaniel Dibardino Work Phone: Start: 77-83-2258Wudgcbknjht timeDaniel Dibardino Work Phone: Start: 43-70-4392Uokasqjluboobl time partial plasma/whole bloodDaniel Dibardino Work Phone: Start: 26-04-4441MKHOEX AND OUTPUTDANIEL DIBARDINO Start: 51-59-3621HOQJXD INTAKE AND OUTPUTDANIEL DIBARDINOStart: 07-15-2019 Glucose blood reagent stripDANIEL DIBARDINOStart: 74-95-4758Pfcvwjuzdbjqhy time partial plasma/whole bloodDANIEL DIBARDINOStart: 19-84-7833Ydczcee blood reagent stripDaniel Dibardino Work Phone: Start: 86-96-9244Dfrukkzkq of rectal tubeDANIEL DIBARDINOStart: 57-93-5057Xoawlhkvvkuavf time partial plasma/whole bloodDaniel Dibardino Work Phone: Start: 86-40-2924Athxu metabolic panel calcium total CARO DIBARDINOStart: 96-53-5352Ihldq count complete automatedDANIEL DIBARDINO Start: 15-03-9240Mtxqrft blood reagent stripDANIEL DIBARDINOStart: 07-15-2019 Basic metabolic panel calcium totalDaniel Dibardino Work Phone: Start: 98-21-5895Lpfnw count complete automatedDaniel Dibardino Work Phone: Start: 19-02-3211Zloulgyrlnyyxk time partial plasma/whole bloodDaniel Dibardino Work Phone: Start: 07-61-6704Oguqtbi blood reagent stripDaniel Dibardino Work Phone: Start: 67-97-0785Znnjz of ammoniaDANIEL DIBARDINO Start: 73-34-3309GUJQCTC, BLOOD 1DANIEL DIBARDINOStart: 20-54-4799Rrooi of ammoniaScotty Quinones Work Phone: Start: 07-15-2019 End: 67-23-3468XSHAATY, BLOOD 1Salil Avasthi Work Phone: Start: 35-45-1588Qvklm centrifuge enhncd id imfluor stain eaDANIEL DIBARDINOStart: 13-89-6551SBGIKJFWYK DISEASE INTERVENTIONDANIEL DIBARDINOStart: 52-38-9232Ewzchnc blood reagent stripDANIEL DIBARDINOStart: 61-54-0425DDGJGOICZT NON-VIOLENT OR VJD-SZAP-AKMUBNBURNQPBTNOG DIBARDINOStart: 21-16-6292Ejgto centrifuge enhncd id imfluor stain eaSalil Avasthi Work Phone: Start: 12-16-8746SLGWYYOYKB DISEASE INTERVENTIONLuis E Wilkerson Work Phone: Start: 58-05-5698Plfmmka blood reagent stripDaniel Dibardino Work Phone: Start: 33-47-7266RYQDLLSC OXYGEN THERAPY PROTOCOL CARO DIBARDINOStart: 01-22-9819Synevnl blood reagent stripDANIEL DIBARDINO Start: 34-65-8162Xditmzgrdo exam chest single viewDANIEL DIBARDINOStart: 79-10-2313HDAPIBAW BLOOD GAS, POCDANIEL DIBARDINOStart: 46-70-2142Hctvo of free thyroxineDANIEL DIBARDINOStart: 69-09-8621Dsvvv of magnesiumDANIEL DIBARDINO Start: 83-88-5031Belfz of thyroid stimulating hormone tshDANIEL DIBARDINOStart: 16-32-1515Jnrjv of triiodothyronine t3 freeDANIEL DIBARDINOStart: 07-15-2019 Basic metabolic panel calcium totalDANIEL DIBARDINOStart: 09-39-4177Kbmeq count complete automatedDANIEL DIBARDINOStart: 04-00-5213Tpvxxjbe totalDANIEL DIBARDINOStart: 03-40-2200Gtqzquttwpn timeDANIEL DIBARDINOStart: 07-15-2019 Thromboplastin time partial plasma/whole bloodDANIEL DIBARDINOStart: 07-15-2019 Glucose blood reagent stripDaniel Dibardino Work Phone: Start: 57-55-4769Ojbilpaiox exam chest single view Vasiliy Bethea Work Phone: Start: 83-54-7472FKVWFBMZ BLOOD GAS, POCDaniel Dibardino Work Phone: Start: 04-92-5114Woofb of free thyroxineScotty Joni Work Phone: Start: 47-88-0805Kfxje of magnesiumDaniel Dibardino Work Phone: Start: 98-24-2405Kowux of thyroid stimulating hormone tshScotty Joni Work Phone: Start: 27-66-1047Cbvum of triiodothyronine t3 free Omar Joni Work Phone: Start: 84-23-7836Uabos metabolic panel calcium total Caro Dibardino Work Phone: Start: 53-15-5703Kzhgv count complete automatedDaniel Dibardino Work Phone: Start: 09-93-8148Ejzyzifa totalScotty Joni Work Phone: Start: 63-00-0741Pkwxneeqgix timeDaniel Dibardino Work Phone: Start: 60-97-5231Wporqxbwqezfam time partial plasma/whole bloodDaniel Dibardino Work Phone: Start: 30-37-9292LJOENS INTAKE AND OUTPUTDANIEL DIBARDINOStart: 80-18-3598NUXFDH AND OUTPUTDANIEL DIBARDINOStart: 07-14-2019 Glucose blood reagent stripDANIEL DIBARDINOStart: 97-76-3643Uskkxpn blood reagent stripDaniel Dibardino Work Phone: Start: 97-39-5673Bjchqvb blood reagent stripDANIEL DIBARDINOStart: 18-05-7127Xermzsj blood reagent stripDaniel Dibardino Work Phone: Start: 94-61-4621Qyhhgopqvjfksm time partial plasma/whole bloodDANIEL DIBARDINOStart: 28-43-5198Ydmhqkgjtwytpj time partial plasma/whole bloodDaniel Dibardino Work Phone: Start: 39-27-3447Eivdnaw blood reagent stripDANIEL DIBARDINOStart: 44-02-0698LGSFPHAG BLOOD GAS, POCDANIEL DIBARDINOStart: 95-77-2732Ppdr bld gluc mntr dev cleared fda spec home useDANIEL DIBARDINOStart: 69-79-2301Opxwh gases any combination ph pco2 po2 co2 pkc6XWSDHD DIBARDINO Start: 24-02-4304Cemquig blood reagent stripDaniel Dibardino Work Phone: Start: 57-20-2572RSVOXMPD BLOOD GAS, POCDaniel Dibardino Work Phone: start: 35-12-4592Bjog bld gluc mntr dev cleared fda spec home useDaniel Dibardino Work Phone: Start: 92-54-5676NXXTTAVM OXYGEN THERAPY PROTOCOL CARO DIBARDINOStart: 17-49-7662Ryh routine ecg w/least 12 lds w/i&rDANIEL DIBARDINOStart: 17-27-3559Ewcejzb blood reagent stripDANIEL DIBARDINOStart: 02-74-8179Ckisznqttw exam chest single viewDANIEL DIBARDINOStart: 07-14-2019 Thromboplastin time partial plasma/whole bloodDANIEL DIBARDINOStart: 07-14-2019 Glucose blood reagent stripDaniel Dibardino Work Phone: Start: 87-64-5906Khqcz of magnesiumDANIEL DIBARDINO Start: 16-14-6466Dadna metabolic panel calcium totalDANIEL DIBARDINOStart: 53-64-3061Vosyu count complete automatedDANIEL DIBARDINOStart: 07-14-2019 Prothrombin timeDANIEL DIBARDINOStart: 17-34-7057VHRSZSLB BLOOD GAS, POCDANIEL DIBARDINOStart: 72-46-6153Qhyfooftad exam chest single viewNicaudieas A Bethea Work Phone: Start: 85-82-2821Sldcsntmikbrxi time partial plasma/whole bloodMuhammad Jose Juan Work Phone: Start: 30-47-8192Kubzy of magnesiumDaniel Dibardino Work Phone: Start: 24-76-8194Znnhm metabolic panel calcium total Caro Dibardino Work Phone: Start: 69-67-9136Lifhb count complete automatedDaniel Dibardino Work Phone: Start: 50-50-8732Xrbgnwvxblb timeDaniel Dibardino Work Phone: Start: 01-65-3228MIFLAJLO BLOOD GAS, POCDaniel Dibardino Work Phone: Start: 77-20-9968Pcv routine ecg w/least 12 lds w/i&r CARO DIBARDINOStart: 19-64-7414SRW REPORTDANIEL DIBARDINOStart: 07-14-2019 INTAKE AND OUTPUTDANIEL DIBARDINOStart: 96-04-0397KSCMNL INTAKE AND OUTPUTDANIEL DIBARDINOStart: 67-02-5307Vjdgmekql serum plasma/whole bloodDANIEL DIBARDINO Start: 75-31-9828Kcdkkjbjhjduji time partial plasma/whole bloodDANIEL DIBARDINO Start: 42-61-4732Tlv routine ecg w/least 12 lds trcg only w/o i&rDaniel Dibardino Work Phone: Start: 42-27-0955VEZ REPORTHpf ScanningStart: 57-60-3204Dosxkobfq serum plasma/whole bloodDaniel Dibardino Work Phone: Start: 82-19-2545Qxukarezmshawq time partial plasma/whole bloodSinan Marc Work Phone: Start: 43-13-6154Clrlune blood reagent stripDANIEL DIBARDINOStart: 91-62-9176Diwowjw blood reagent stripDaniel Dibardino Work Phone: Start: 43-31-4335BGKCDIFTWNKRM NURSING CARE ORDER (SPECIFY)CARO DIBARDINOStart: 02-70-1197Osgfpwe blood reagent stripDANIEL DIBARDINOStart: 55-33-4203Cwjqj metabolic panel calcium totalDANIEL DIBARDINO Start: 35-20-1236Jdjusowjqeamph time partial plasma/whole bloodDANIEL DIBARDINO Start: 38-96-1953Xquxoxd blood reagent stripDaniel Dibardino Work Phone: Start: 26-06-0499Glca [facility] ctr vad w/subq port age 3 yr/>CARO DIBARDINOStart: 25-59-7720ZAYVEAWXSUHXH NURSING CARE ORDER (SPECIFY) CARO DIBARDINOStart: 90-47-8542Pnq routine ecg w/least 12 lds w/i&rDANIEL DIBARDINOStart: 38-75-7046FQO REPORTDANIEL DIBARDINOStart: 62-20-1177Pgxam metabolic panel calcium totalMobasser Homer Work Phone: Start: 41-88-9907Yzgnvahyxwdyih time partial plasma/whole bloodSinan Marc Work Phone: Start: 62-38-1521BPLODR PHYSICIAN (SPECIFY)CARO WRAYNOStart: 79-53-1747ETCYZHW COMMUNICATIONDANIEL DIBARDINOStart: 07-13-2019 Glucose blood reagent stripDANIEL DIBARDINOStart: 62-51-1405Xrdt [facility] ctr vad w/subq port age 3 yr/>Rupali Longthorne Work Phone: Start: 09-01-1022LBFNJCBXKBPXD NURSING CARE ORDER (SPECIFY)Rupali Longthorne Work Phone: Start: 30-52-3208Pby routine ecg w/least 12 lds trcg only w/o i&rMobasser Homer Work Phone: Start: 73-48-8715GBQ REPORTHpf ScanningStart: 00-97-2231YNWAQLGGJL NON-VIOLENT OR TPG-SXGH-TUAAIMZCWYJIXVYJI DIBARDINOStart: 43-03-6382Qnmhath blood reagent stripDaniel Dibardino Work Phone: Start: 56-22-1418LIOLGMQT OXYGEN THERAPY PROTOCOL CARO DIBARDINOStart: 32-43-3514Zolsbgk blood reagent stripDANIEL DIBARDINO Start: 27-68-5876WLGGPMGV BLOOD GAS, POCDANIEL DIBARDINOStart: 07-13-2019 Radiologic exam chest single viewDANIEL DIBARDINOStart: 12-02-3740Iwghwgx blood reagent stripDaniel Dibardino Work Phone: Start: 37-83-9999IHGVJOCO BLOOD GAS, POCDaniel Dibardino Work Phone: Start: 78-85-2513ASCDL GAP (CALC) POCDANIEL DIBARDINO Start: 72-12-9067HZMHZCZR BLOOD GAS, POCDANIEL DIBARDINOStart: 32-83-0637Cenbb count hemoglobinDANIEL DIBARDINOStart: 46-84-6818Szpbegl ionizedDANIEL DIBARDINO Start: 35-51-0709Qspvpheb other sourceDANIEL DIBARDINOStart: 07-13-2019 CREATININE W/GFR POINT OF CAREDANIEL DIBARDINOStart: 60-39-0550Texc bld gluc mntr dev cleared fda spec home useDANIEL DIBARDINOStart: 14-71-7653VKSORL ACID,POINT OF CAREDANIEL DIBARDINOStart: 74-14-0319Spgvnqvzf serum plasma/whole bloodDANIEL DIBARDINOStart: 27-66-8359Cvyplj serum plasma or whole bloodDANIEL DIBARDINOStart: 09-60-1238Jkdwu of magnesiumDANIEL DIBARDINOStart: 07-13-2019 Assay of phosphorus inorganicDANIEL DIBARDINOStart: 96-33-8497Gyzab of triiodothyronine t3 freeDANIEL DIBARDINOStart: 20-04-2754Tkzpc metabolic panel calcium totalDANIEL DIBARDINOStart: 44-24-3659Rvvfv count complete automated CARO DIBARDINOStart: 44-56-0609Clhbsdungqj timeDANIEL DIBARDINOStart: 45-50-4529Imvwlpyapmnnsq time partial plasma/whole bloodDANIEL DIBARDINOStart: 05-85-0266Jxhgqmlyar exam chest single viewNicholas A Bethea Work Phone: Start: 07-13-2019 End: 06-94-1976BQXMC GAP (CALC) POCDaniel Dibardino Work Phone: Start: 07-13-2019 End: 60-63-0786LMZESWCI BLOOD GAS, POCDaniel Dibardino Work Phone: Start: 07-13-2019 End: 03-94-5817Uvhci count hemoglobinDaniel Dibardino Work Phone: Start: 07-13-2019 End: 32-93-8438ABKJUCA, IONIC (POC)Caro Dibardino Work Phone: Start: 07-13-2019 End: 90-11-8261Zscodizb [Moles/Vol]Caro Dibardino Work Phone: Start: 07-13-2019 End: 04-87-5934DYDKPRTQSG W/GFR POINT OF CAREDaniel Dibardino Work Phone: Start: 07-13-2019 End: 46-22-8598Gzfi bld gluc mntr dev cleared fda spec home useDaniel Dibardino Work Phone: Start: 07-13-2019 End: 52-87-2771ERLIQR ACID,POINT OF CAREDaniel Dibardino Work Phone: Start: 07-13-2019 End: 27-24-6592Ldzbybpfz [Moles/Vol]Caro Dibardino Work Phone: Start: 07-13-2019 End: 66-29-8493Vgnyte [Moles/Vol]Caro Dibardino Work Phone: Start: 79-97-6321Bowom of magnesiumDaniel Dibardino Work Phone: Start: 02-96-8971Kneyo of phosphorus inorganicDaniel Dibardino Work Phone: Start: 02-74-5768Sqhfm of triiodothyronine t3 free Caro Dibardino Work Phone: Start: 50-74-1754Ztsgr metabolic panel calcium total Caro Dibardino Work Phone: Start: 17-67-6739Cijkf count complete automatedDaniel Dibardino Work Phone: Start: 39-25-1665Dmqgrgjcwsx timeDaniel Dibardino Work Phone: Start: 08-19-2484Lvyznodiixeqpl time partial plasma/whole bloodDaniel Dibardino Work Phone: Start: 08-41-2254XQXUHZ INTAKE AND OUTPUTDANIEL DIBARDINOStart: 70-83-5405SRXHFN AND OUTPUTDANIEL DIBARDINOStart: 07-12-2019 Glucose blood reagent stripDANIEL DIBARDINOStart: 61-81-4484Cwprxqfmeffqtr time partial plasma/whole bloodDANIEL DIBARDINOStart: 77-80-8593Kqwlpoe blood reagent stripDaniel Dibardino Work Phone: Start: 01-85-2825Ucgxabclilvaeg time partial plasma/whole bloodMobasser Homer Work Phone: Start: 13-42-8715QMTXARVR BLOOD GAS, POCDANIEL DIBARDINOStart: 38-85-7167Evnttiea cerebral seizure cable/radio eeg/videoDANIEL DIBARDINOStart: 10-35-8677Nmvkzssaie antibodies eachDANIEL DIBARDINOStart: 80-78-8185Qrrnmsx blood reagent stripDANIEL DIBARDINOStart: 58-53-9809TTVHETSC BLOOD GAS, POCDaniel Dibardino Work Phone: Start: 94-25-9194RAJ VIDEO MONITORINGMadison Arechiga Work Phone: Start: 45-80-2643Vkisqdcuhi antibodies eachPaul David Work Phone: Start: 02-61-4425YGDMXCHYTXZPR AND ANTI-THYROGLOBULIN ABPaul Davdi Work Phone: Start: 77-60-9240OXQYTKNH SPECIMENDANIEL DIBARDINO Start: 11-97-2963Qywhjttibjqfxm time partial plasma/whole bloodDANIEL DIBARDINO Start: 93-85-8126Nfhwsoc blood reagent stripDaniel Dibardino Work Phone: Start: 92-74-3039Esfsv of free thyroxineDANIEL DIBARDINOStart: 62-05-5862Sypvg of thyroid stimulating hormone tshDANIEL DIBARDINOStart: 30-11-2616Amsklicohlsxee time partial plasma/whole bloodDaniel Dibardino Work Phone: Start: 49-11-1177Dll head w/o contrst materialDANIEL DIBARDINOStart: 00-03-0929Ywz neck w/o contrst materialDANIEL DIBARDINOStart: 50-30-0265Ftd brain brain stem w/o contrast materialDANIEL DIBARDINOStart: 55-96-3701Kxlfv of free thyroxineMobasser Homer Work Phone: Start: 44-70-6808Hwzqe of thyroid stimulating hormone tshPaul David Work Phone: Start: 38-26-5813ULVSLTFU BLOOD GAS, POCDANIEL DIBARDINOStart: 72-09-0920Qvtejit blood reagent stripDANIEL DIBARDINOStart: 94-35-5018Wdl head w/o contrst materialMadison Arechiga Work Phone: Start: 77-75-3147Cyb neck w/o contrst materialMadison Arechiga Work Phone: Start: 02-88-9457Roy brain brain stem w/o contrast materialMadison Arechiga Work Phone: Start: 36-16-8409BGKAHJAH BLOOD GAS, POCDaniel Dibardino Work Phone: Start: 45-14-6954Elimhfg blood reagent stripDaniel Dibardino Work Phone: Start: 16-33-8078HBUFNVAI OXYGEN THERAPY PROTOCOL CARO WRAYNOStart: 47-64-1180Bvpdankfzf exam chest single viewDANIEL DIBARDINOStart: 93-11-7176WGXHC GAP (CALC) POCDANIEL DIBARDINOStart: 07-12-2019 ARTERIAL BLOOD GAS, POCDANIEL DIBARDINOStart: 45-23-4525Keupn count hemoglobin CARO DIBARDINOStart: 97-65-4017Iawgdwz ionizedDANIEL DIBARDINOStart: 21-60-3708Evrfhugo other sourceDANIEL DIBARDINOStart: 99-56-7318OALDRDGDDP W/GFR POINT OF CAREDANIEL DIBARDINOStart: 07-30-4284Yyix bld gluc mntr dev cleared fda spec home useDANIEL DIBARDINOStart: 82-84-3029ZFUJMM ACID,POINT OF CARE CARO DIBARDINOStart: 34-00-2681Veafcgyhw serum plasma/whole bloodDANIEL DIBARDINOStart: 26-49-6327Yjoqcv serum plasma or whole bloodDANIEL DIBARDINO Start: 29-41-2789Qysax of magnesiumDANIEL DIBARDINOStart: 20-94-1825Rzkbs of phosphorus inorganicDANIEL DIBARDINOStart: 26-27-0870Vaepr metabolic panel calcium totalDANIEL DIBARDINOStart: 41-39-5279Jmdve count complete automated CARO DIBARDINOStart: 49-96-6734Jljnlklf totalDANIEL DIBARDINOStart: 07-12-2019 Cyanocobalamin vitamin b-12DANIEL DIBARDINOStart: 80-90-0028Bxzulkneevf time CARO DIBARDINOStart: 18-50-8252Qbeumnppxckwsh time partial plasma/whole blood CARO DIBARDINOStart: 62-62-4827Bsbwsiiuft exam chest single viewNictogus va medical centeras A Bethea Work Phone: Start: 47-81-2184NAEMM GAP (CALC) POCDaniel Dibardino Work Phone: Start: 35-75-4447BDFOBFBL BLOOD GAS, POCDaniel Dibardino Work Phone: Start: 77-18-8305Tbwll count hemoglobinDaniel Dibardino Work Phone: Start: 90-87-5360TVOWJLD, IONIC (POC)Caro Dibardino Work Phone: Start: 51-87-6685Gpkspdan [Moles/Vol]Caro Dibardino Work Phone: Start: 03-34-9086IHYZWCPMGC W/GFR POINT OF CAREDaniel Dibardino Work Phone: Start: 15-47-1404Gamg bld gluc mntr dev cleared fda spec home useDaniel Dibardino Work Phone: Start: 30-33-8028VBGTOV ACID,POINT OF CAREDaniel Dibardino Work Phone: Start: 82-58-4638Uxjbdubhb [Moles/Vol]Caro Dibardino Work Phone: Start: 30-16-6425Pgidlr [Moles/Vol]Caro Dibardino Work Phone: Start: 80-66-0143Pndks of magnesiumDaniel Dibardino Work Phone: Start: 67-10-9836Yyged of phosphorus inorganicDaniel Dibardino Work Phone: Start: 16-74-2066Qcnay metabolic panel calcium total Caro Dibardino Work Phone: Start: 15-88-8881Qwtam count complete automatedDaniel Dibardino Work Phone: Start: 64-76-4752Nayqbdxt totalDaniel Dibardino Work Phone: Start: 16-64-1368NEIEYEH LABORATORY CHARGEDaniel Dibardino Work Phone: Start: 59-93-8859Fbjjyzxrdmv timeDaniel Dibardino Work Phone: Start: 55-11-0907Tebmvwxlvfbicb time partial plasma/whole bloodDaniel Dibardino Work Phone: Start: 87-18-5974QLJWWH INTAKE AND OUTPUTDANIEL DIBARDINOStart: 84-24-6775WJDBRG AND OUTPUTDANIEL DIBARDINOStart: 07-12-2019 Electrolyte panelDANIEL DIBARDINOStart: 37-26-0056Zgnjl of magnesiumDANIEL DIBARDINOStart: 05-99-6256Rrfzfgpvres panelBrian Yosi Zarate Work Phone: Start: 07-88-6300Lrewt of magnesiumEnio Zarate Work Phone: Start: 05-84-3736Mniehzc blood reagent stripDANIEL DIBARDINOStart: 86-86-7961Veflcku blood reagent stripDaniel Dibardino Work Phone: Start: 94-76-7204IMMQEND, BLOOD 1DANIEL DIBARDINO Start: 43-05-4520Zsoua centrifuge enhncd id imfluor stain eaDANIEL DIBARDINO Start: 09-55-7204QQVWK GAP (CALC) POCDANIEL DIBARDINOStart: 75-09-1050JORVPDCW BLOOD GAS, POCDANIEL DIBARDINOStart: 53-71-7577Tzozg count hemoglobinDANIEL DIBARDINOStart: 47-69-4353Thuuftt ionizedDANIEL DIBARDINOStart: 07-11-2019 Chloride other sourceDANIEL DIBARDINOStart: 83-50-5568JBZAYQEJPX W/GFR POINT OF CAREDANIEL DIBARDINOStart: 97-22-5624Pyxg bld gluc mntr dev cleared fda spec home useDANIEL DIBARDINOStart: 28-29-9651NMFPGG ACID,POINT OF CAREDANIEL DIBARDINOStart: 97-94-7237Pkjqlhhqb serum plasma/whole bloodDANIEL DIBARDINO Start: 02-02-1159Gyhqmx serum plasma or whole bloodDANIEL DIBARDINOStart: 07-11-2019 End: 20-73-3955RLSNIPT, BLOOD 1Nestrada Bethea Work Phone: Start: 96-81-5794Csfeh centrifuge enhncd id imfluor stain Maxx Wilkerson Work Phone: Start: 32-63-8724JQJKK GAP (CALC) POCDANIEL DIBARDINO Start: 87-99-7504ISBWWQIW BLOOD GAS, POCDANIEL DIBARDINOStart: 20-86-9761Habulxc ionizedDANIEL DIBARDINOStart: 83-15-1411Yeowqjnu other sourceDANIEL DIBARDINO Start: 68-64-2607SNDZEDRAUA W/GFR POINT OF CAREDANIEL DIBARDINOStart: 07-11-2019 LACTIC ACID,POINT OF CAREDANIEL DIBARDINOStart: 66-59-3114Usbkzezpy serum plasma/whole bloodDANIEL DIBARDINOStart: 65-64-8876Bisnzf serum plasma or whole bloodDANIEL DIBARDINOStart: 90-09-3650BHPIZ GAP (CALC) POCDaniel Dibardino Work Phone: Start: 12-31-1734WHRTCKEB BLOOD GAS, POCDaniel Dibardino Work Phone: Start: 49-65-9985Ebgkj count hemoglobinDaniel Dibardino Work Phone: Start: 74-15-8881USKNCUP, IONIC (POC)Caro Dibardino Work Phone: Start: 86-27-5159Mcbvbwpr [Moles/Vol]Caro Dibardino Work Phone: Start: 93-52-7406APFAFQRNLS W/GFR POINT OF CAREDaniel Dibardino Work Phone: Start: 29-48-0347Cizt bld gluc mntr dev cleared fda spec home useDaniel Dibardino Work Phone: Start: 67-93-8791OCHLPD ACID,POINT OF CAREDaniel Dibardino Work Phone: Start: 63-94-5405Trwptwsuc [Moles/Vol]Caro Dibardino Work Phone: Start: 01-89-9100Yzzdlv [Moles/Vol]Caro Dibardino Work Phone: Start: 62-71-9452LPLDC GAP (CALC) POCDANIEL DIBARDINO Start: 10-72-0118ZIJOVTBA BLOOD GAS, POCDANIEL DIBARDINOStart: 48-25-3937Rzmapje ionizedDANIEL DIBARDINOStart: 77-39-9606Miyvrbtg other sourceDANIEL DIBARDINO Start: 91-20-3756AEGLNYTMNS W/GFR POINT OF CAREDANIEL DIBARDINOStart: 07-11-2019 LACTIC ACID,POINT OF CAREDANIEL DIBARDINOStart: 15-28-7142Toznbgwev serum plasma/whole bloodDANIEL DIBARDINOStart: 66-46-6252Edwizo serum plasma or whole bloodDANIEL DIBARDINOStart: 96-34-5550GAJNY GAP (CALC) POCDaniel Dibardino Work Phone: Start: 14-98-3837YHTHKEXE BLOOD GAS, POCDaniel Dibardino Work Phone: Start: 77-88-3281Pcswt count hemoglobinDaniel Dibardino Work Phone: Start: 78-06-9970SWPQZKS, IONIC (POC)Caro Dibardino Work Phone: Start: 25-90-0477Gpzphnjo [Moles/Vol]Caro Dibardino Work Phone: Start: 81-50-7434NSOCDURDQE W/GFR POINT OF CAREDaniel Dibardino Work Phone: Start: 54-29-4667Zhat bld gluc mntr dev cleared fda spec home useDaniel Dibardino Work Phone: Start: 93-53-1957FIEFNC ACID,POINT OF CAREDaniel Dibardino Work Phone: Start: 12-97-2874Yicnlnkun [Moles/Vol]Caro Dibardino Work Phone: Start: 11-76-3797Mlnmvt [Moles/Vol]Caro Dibardino Work Phone: Start: 28-25-4394Pbbea of magnesiumDANIEL DIBARDINO Start: 58-90-2077Axvhi metabolic panel calcium totalDANIEL DIBARDINOStart: 11-17-5429Wsgcmaifubosoj time partial plasma/whole bloodDANIEL DIBARDINOStart: 29-03-0903HVYNV GAP (CALC) POCDANIEL DIBARDINOStart: 41-62-8974DNXXBYEW BLOOD GAS, POCDANIEL DIBARDINOStart: 25-42-4479Pmugwyo ionizedDANIEL DIBARDINOStart: 38-11-5185Yfhheqrj other sourceDANIEL DIBARDINOStart: 96-55-1030OSAISUIDQO W/GFR POINT OF CAREDANIEL DIBARDINOStart: 05-97-2587NOBVQT ACID,POINT OF CAREDANIEL DIBARDINOStart: 34-87-0691Vcoifiqxt serum plasma/whole bloodDANIEL DIBARDINO Start: 07-17-1091Qdaxaz serum plasma or whole bloodDANIEL DIBARDINOStart: 42-20-6380PPWEO GAP (CALC) POCDaniel Dibardino Work Phone: Start: 45-50-0684MQNIXWQQ BLOOD GAS, POCDaniel Dibardino Work Phone: Start: 49-86-0611Aysog count hemoglobinDaniel Dibardino Work Phone: Start: 32-25-4851FXRYSZF, IONIC (POC)Caro Dibardino Work Phone: Start: 69-66-8166Kmlvordq [Moles/Vol]Caro Dibardino Work Phone: Start: 23-40-6017ULEJHUCFHM W/GFR POINT OF CAREDaniel Dibardino Work Phone: Start: 24-85-3863Oonf bld gluc mntr dev cleared fda spec home useDaniel Dibardino Work Phone: Start: 37-43-4372PGAALR ACID,POINT OF CAREDaniel Dibardino Work Phone: Start: 76-93-6383Xknhhkkck [Moles/Vol]Caro Dibardino Work Phone: Start: 20-16-3308Lpnqol [Moles/Vol]Caro Dibardino Work Phone: Start: 11-35-7399Tvzkx of magnesiumDaniel Dibardino Work Phone: Start: 20-94-0225Juqcu metabolic panel calcium total Caro Dibardino Work Phone: Start: 61-97-8762Dlwxbtdylzvamm time partial plasma/whole bloodNicholmeeta Bethea Work Phone: Start: 64-68-1989GPUYZ GAP (CALC) POCDaniel Dibardino Work Phone: Start: 11-20-3082YJIPTLNO BLOOD GAS, POCDaniel Dibardino Work Phone: Start: 26-89-5116Srjyg count hemoglobinDaniel Dibardino Work Phone: Start: 87-93-4829SHKRSCH, IONIC (POC)Caro Dibardino Work Phone: Start: 84-53-1442Tetlpdzw [Moles/Vol]Caro Dibardino Work Phone: Start: 87-39-7193QIXIFYCJLL W/GFR POINT OF CAREDaniel Dibardino Work Phone: Start: 21-95-4064Vhqq bld gluc mntr dev cleared fda spec home useDaniel Dibardino Work Phone: Start: 07-83-9580IDUSVV ACID,POINT OF CAREDaniel Dibardino Work Phone: Start: 28-51-3919Iyjbrthsq [Moles/Vol]Caro Dibardino Work Phone: Start: 40-11-6649Gqknxr [Moles/Vol]Caro Dibardino Work Phone: Start: 51-12-8704MJ CONSULT TO INFECTIOUS DISEASES CARO LOCKEARDINOStart: 11-83-4513Dmlslzdtcg exam chest single viewDANIEL DIBARDINOStart: 58-78-6560MVUGS GAP (CALC) POCDANIEL DIBARDINOStart: 07-11-2019 ARTERIAL BLOOD GAS, POCDANIEL DIBARDINOStart: 69-24-8999Ylkqh count hemoglobin CARO DIBARDINOStart: 84-88-0196Zelvcic ionizedDANIEL DIBARDINOStart: 71-38-7964Phmjzhxp other sourceDANIEL DIBARDINOStart: 19-92-3035WNTGNXIWBB W/GFR POINT OF CAREDANIEL DIBARDINOStart: 36-78-7785Glpb bld gluc mntr dev cleared fda spec home useDANIEL DIBARDINOStart: 24-56-9742HBDZWJ ACID,POINT OF CARE CARO DIBARDINOStart: 76-88-7626Hhqpewwhf serum plasma/whole bloodDANIEL DIBARDINOStart: 60-22-5908Wiuank serum plasma or whole bloodDANIEL DIBARDINO Start: 39-77-4648HYLZQYEM OXYGEN THERAPY PROTOCOLDANIEL DIBARDINOStart: 41-98-8788Ixedziyyuy exam chest single viewNictogus va medical centermeeta A Bethea Work Phone: Start: 04-05-0590AJBTM GAP (CALC) POCDANIEL DIBARDINO Start: 75-23-2955UFUMOXPO BLOOD GAS, POCDANIEL DIBARDINOStart: 50-03-9856Zrnbrsx ionizedDANIEL DIBARDINOStart: 21-04-5446Xiddpvtr other sourceDANIEL DIBARDINO Start: 25-13-4605LMGATPVWUP W/GFR POINT OF CAREDANIEL DIBARDINOStart: 07-11-2019 LACTIC ACID,POINT OF CAREDANIEL DIBARDINOStart: 47-30-1555ZPALYBGXIKJD PANEL, POCDANIEL DIBARDINOStart: 85-57-5966Qnrysfgvx serum plasma/whole bloodDANIEL DIBARDINOStart: 76-31-8118Flokgw serum plasma or whole bloodDANIEL DIBARDINO Start: 82-27-6714MHTKM GAP (CALC) POCDaniel Dibardino Work Phone: Start: 24-08-6345CYEQEEXE BLOOD GAS, POCDaniel Dibardino Work Phone: Start: 94-38-9388Zoqyd count hemoglobinDaniel Dibardino Work Phone: Start: 08-58-9966WKALPMR, IONIC (POC)Caro Dibardino Work Phone: Start: 19-27-2543Zpfidamd [Moles/Vol]Caro Dibardino Work Phone: Start: 96-10-2951UBJQVXVKLN W/GFR POINT OF CAREDaniel Dibardino Work Phone: Start: 10-93-6376Cznp bld gluc mntr dev cleared fda spec home useDaniel Dibardino Work Phone: Start: 49-59-0886GOBIYY ACID,POINT OF CAREDaniel Dibardino Work Phone: Start: 42-76-2835Hdftwkpok [Moles/Vol]Caro Dibardino Work Phone: Start: 89-38-4105Wkyfqq [Moles/Vol]Caro Dibardino Work Phone: Start: 51-02-7593Ihucfkjvjg exam chest single view Vasiliy Bethea Work Phone: Start: 13-05-6644Byqgjgs ionizedDANIEL DIBARDINOStart: 63-97-0134DQ CONSULT TO PULMONOLOGYDANIEL DIBARDINOStart: 99-55-1477DUEKC GAP (CALC) POCDANIEL DIBARDINOStart: 72-17-9091ZQUVNCLP BLOOD GAS, POCDANIEL DIBARDINOStart: 34-40-4459Lehqrikk other sourceDANIEL DIBARDINOStart: 07-11-2019 CREATININE W/GFR POINT OF CAREDANIEL DIBARDINOStart: 35-35-2219RAOEWP ACID,POINT OF CAREDANIEL DIBARDINOStart: 36-53-9563AIMOPYKMLNEQ PANEL, POCDANIEL DIBARDINO Start: 99-80-0581Dlvwmztdb serum plasma/whole bloodDANIEL DIBARDINOStart: 50-55-3204Ciedrq serum plasma or whole bloodDANIEL DIBARDINOStart: 07-11-2019 ANION GAP (CALC) POCDaniel Dibardino Work Phone: Start: 59-41-7325ONOGTXHA BLOOD GAS, POCDaniel Dibardino Work Phone: Start: 76-92-5734Fnowp count hemoglobinDaniel Dibardino Work Phone: Start: 20-68-0875BPITORQ, IONIC (POC)Caro Dibardino Work Phone: Start: 96-06-7962Mlzcevoc [Moles/Vol]Caro Dibardino Work Phone: start: 71-74-7475SREWKTSYRN W/GFR POINT OF CAREDaniel Dibardino Work Phone: Start: 99-19-8040Qwgg bld gluc mntr dev cleared fda spec home useDaniel Dibardino Work Phone: Start: 16-30-7894UBKXBH ACID,POINT OF CAREDaniel Dibardino Work Phone: Start: 23-91-6690ZZQQHHBTAVEG PANEL, POCDaniel Dibardino Work Phone: Start: 65-99-5817Esgulvxit [Moles/Vol]Caro Dibardino Work Phone: Start: 77-75-6613Iytcqr [Moles/Vol]Caro Dibardino Work Phone: Start: 17-90-9052Wikipwzelt exam chest single view CARO DIBARDINOStart: 08-91-8586Eelbxhm ionizedDANIEL DIBARDINOStart: 94-44-0303Pmftp gases any combination ph pco2 po2 co2 hkw7RYTBGD DIBARDINOStart: 26-42-7744Mutdb of magnesiumDANIEL DIBARDINOStart: 52-54-9082Bdgyb of phosphorus inorganicDANIEL DIBARDINOStart: 48-62-5672Axphk metabolic panel calcium totalDANIEL DIBARDINOStart: 07-60-5512Qrrzn count complete automated CARO DIBARDINOStart: 08-54-0240Hrputfucpvq timeDANIEL DIBARDINOStart: 41-68-4612Ydgicbwzdbadjv time partial plasma/whole bloodDANIEL DIBARDINOStart: 07-11-2019 End: 34-49-9484MSELB GAP (CALC) POCDaniel Dibardino Work Phone: Start: 07-11-2019 End: 09-56-8342YXMHYEEG BLOOD GAS, POCDaniel Dibardino Work Phone: Start: 07-11-2019 End: 09-06-5348Gqoll count hemoglobinDaniel Dibardino Work Phone: Start: 07-11-2019 End: 34-75-7372TOTNADZ, IONIC (POC)Caro Dibardino Work Phone: Start: 07-11-2019 End: 14-52-2594Tfuivnoa [Moles/Vol]Caro Dibardino Work Phone: Start: 07-11-2019 End: 29-85-0450VVBYQIPGZO W/GFR POINT OF CAREDaniel Dibardino Work Phone: Start: 07-11-2019 End: 15-99-2830Cddv bld gluc mntr dev cleared fda spec home useDaniel Dibardino Work Phone: Start: 07-11-2019 End: 51-05-4438VXNZOF ACID,POINT OF CAREDaniel Dibardino Work Phone: Start: 22-12-3695NRHGQGQUWVFA PANEL, POCDaniel Dibardino Work Phone: Start: 07-11-2019 End: 67-31-5372Xmwwfbvso [Moles/Vol]Caro Dibardino Work Phone: Start: 07-11-2019 End: 36-42-7850Rlovvs [Moles/Vol]Caro Dibardino Work Phone: Start: 65-89-9338Uylygeytib exam chest single view Kuladeep Gidda Work Phone: Start: 58-96-2879Mrslpgv ionizedKuladeep Gidda Work Phone: Start: 64-73-6196Eqkxd of magnesiumDaniel Dibardino Work Phone: Start: 69-90-5135Diaai of phosphorus inorganicDaniel Dibardino Work Phone: Start: 58-82-7581Qspsm metabolic panel calcium total Caro Dibardino Work Phone: Start: 75-89-3519Oxegv count complete automatedDaniel Dibardino Work Phone: Start: 82-18-7162Kypdpxsudvo timeDaniel Dibardino Work Phone: Start: 93-64-9604Cvdmdbmbndwypc time partial plasma/whole bloodVasiliy Bethea Work Phone: Start: 12-71-5052OLIRMC INTAKE AND OUTPUTDANIEL DIBARDINOStart: 21-24-7400ROLSNI AND OUTPUTDANIEL DIBARDINOStart: 07-11-2019 Thromboplastin time partial plasma/whole bloodDANIEL DIBARDINOStart: 07-11-2019 Thromboplastin time partial plasma/whole bloodBertrandholas A Neema Work Phone: Start: 47-68-2696Pxw routine ecg w/least 12 lds w/i&r CARO DIBARDINOStart: 36-83-6132DTD REPORTDANIEL DIBARDINOStart: 07-10-2019 Glucose blood reagent stripDANIEL DIBARDINOStart: 16-91-2042Gas routine ecg w/least 12 lds i&r onlyBharat Luis Work Phone: Start: 34-75-3604HJA REPORTHpf ScanningStart: 53-64-8199Ihpuhqe blood reagent stripDaniel Dibardino Work Phone: Start: 08-26-2622Jwptbzzfnkfmkq time partial plasma/whole bloodDANIEL DIBARDINOStart: 64-04-3536Whlwale blood reagent strip CARO DIBARDINOStart: 00-97-7423Cttukbnldbmlmh time partial plasma/whole blood Vasiliy Bethea Work Phone: Start: 49-35-4921Rihzwbp blood reagent stripDaniel Dibardino Work Phone: Start: 38-53-3977QHJGULEG BLOOD GAS, POCDANIEL DIBARDINOStart: 52-33-4205Fuoo bld gluc mntr dev cleared fda spec home useDANIEL DIBARDINOStart: 30-93-2134QBNEBF ACID,POINT OF CAREDANIEL DIBARDINOStart: 41-89-9683Ytyfyvrpzjyclb time partial plasma/whole bloodDANIEL DIBARDINOStart: 47-13-8815Mfeyfzn blood reagent stripDANIEL DIBARDINOStart: 88-80-0362PH CONSULT TO CRITICAL CAREDANIEL DIBARDINOStart: 33-47-1298HLEQBABZ BLOOD GAS, POCDaniel Dibardino Work Phone: Start: 46-01-2743Kfmj bld gluc mntr dev cleared fda spec home useDaniel Dibardino Work Phone: Start: 87-71-4286RMERNF ACID,POINT OF CAREDaniel Dibardino Work Phone: Start: 66-02-2577Hoftryzxatifix time partial plasma/whole bloodNicholas A Bethea Work Phone: Start: 75-27-1922Cduzhur blood reagent stripDaniel Dibardino Work Phone: Start: 04-09-5647TB CONSULT TO IV TEAMDANIEL DIBARDINO Start: 50-53-8746DBSIYWRU PATIENTDANIEL DIBARDINOStart: 07-32-6351MALSYQNR OXYGEN THERAPY PROTOCOLDANIEL DIBARDINOStart: 22-94-2652CASHVSZV BLOOD GAS, POC CARO DIBARDINOStart: 81-76-6748Jqqq bld gluc mntr dev cleared fda spec home useDANIEL DIBARDINOStart: 87-22-8573UAOZTM ACID,POINT OF CAREDANIEL DIBARDINO Start: 09-93-4496IZJ BLOOD GASDANIEL DIBARDINOStart: 69-77-6276Egunfwz blood reagent stripDANIEL DIBARDINOStart: 79-86-8316ATO BLOOD GASDANIEL DIBARDINO Start: 72-97-4838VJECH GAP (CALC) POCDANIEL DIBARDINOStart: 36-49-3502PFUMAFVG BLOOD GAS, POCDANIEL DIBARDINOStart: 84-99-0943Tijoc count hemoglobinDANIEL DIBARDINOStart: 75-73-8777Yqdcqjj ionizedDANIEL DIBARDINOStart: 07-10-2019 Chloride other sourceDANIEL DIBARDINOStart: 03-24-0654UBIDLDCLET W/GFR POINT OF CAREDANIEL DIBARDINOStart: 19-28-6697NSFHUP ACID,POINT OF CAREDANIEL DIBARDINO Start: 12-06-9913Xkbzedzum serum plasma/whole bloodDANIEL DIBARDINOStart: 39-66-0201Wyualv serum plasma or whole bloodDANIEL DIBARDINOStart: 07-10-2019 ARTERIAL BLOOD GAS, POCDaniel Dibardino Work Phone: Start: 14-80-4371Smjh bld gluc mntr dev cleared fda spec home useDaniel Dibardino Work Phone: Start: 29-25-1931WSLKPT ACID,POINT OF CAREDaniel Dibardino Work Phone: Start: 21-52-7752Dlytrul blood reagent stripDaniel Dibardino Work Phone: Start: 75-36-6109Cplbdbxajx exam chest single view CARO DIBARDINOStart: 78-92-3543Hn head/brain w/o contrast materialDANIEL DIBARDINOStart: 70-24-8131Imxjb of magnesiumDANIEL DIBARDINOStart: 07-10-2019 Assay of phosphorus inorganicDANIEL DIBARDINOStart: 37-94-5255Ijezj metabolic panel calcium totalDANIEL DIBARDINOStart: 39-46-5633Zuxvd count complete automatedDANIEL DIBARDINOStart: 63-52-8084Lycgrlghtsq timeDANIEL DIBARDINOStart: 31-23-1479Nvfuydpujcihno time partial plasma/whole bloodDANIEL DIBARDINOStart: 10-02-5481OQSCN GAP (CALC) POCDANIEL DIBARDINOStart: 58-65-9359GFLKKTVY BLOOD GAS, POCDANIEL DIBARDINOStart: 21-86-1688Taovzbt ionizedDANIEL DIBARDINOStart: 98-83-4613Kgwwbvmn other sourceDANIEL DIBARDINOStart: 26-04-6246LPNDFDRSTU W/GFR POINT OF CAREDANIEL DIBARDINOStart: 24-83-0983DUKZZV ACID,POINT OF CAREDANIEL DIBARDINOStart: 90-13-7743Svwtfqmci serum plasma/whole bloodDANIEL DIBARDINO Start: 90-62-7096Kezxrf serum plasma or whole bloodDANIEL DIBARDINOStart: 26-50-0458QNT DRAWDANIEL DIBARDINOStart: 00-35-2687OZPAV GAP (CALC) POCDaniel Dibardino Work Phone: Start: 36-20-5149HRAPIXZI BLOOD GAS, POCDaniel Dibardino Work Phone: [phone]: 84-58-0890Vikyy count hemoglobinDaniel Dibardino Work Phone: [phone]: 61-46-6165ZEWFHEM, IONIC (POC)Caro Dibardino Work Phone: [phone]: 04-57-7319Adnnberd [Moles/Vol]Caro Dibardino Work Phone: Start: 38-85-4793LQCZICFGVF W/GFR POINT OF CAREDaniel Dibardino Work Phone: [phone]: 25-10-9082Inow bld gluc mntr dev cleared fda spec home useDaniel Dibardino Work Phone: Start: 55-35-7187UCHUDY ACID,POINT OF CAREDaniel Dibardino Work Phone: Start: 93-10-9279Dlqfsmdmo [Moles/Vol]Caro Dibardino Work Phone: Start: 31-51-6063Liohvh [Moles/Vol]Caro Dibardino Work Phone: Start: 70-75-0344Kghrvqsiab exam chest single view Brianna L Schelkun Work Phone: Start: 89-44-9109Xv head/brain w/o contrast material Vasiliy Bethea Work Phone: Start: 16-81-5211Zvrtv of magnesiumDaniel Dibardino Work Phone: Start: 70-98-3446Jyqrs of phosphorus inorganicDaniel Dibardino Work Phone: Start: 49-78-1875Qfbcx metabolic panel calcium total Caro Dibardino Work Phone: Start: 51-09-8043Anuir count complete automatedDaniel Dibardino Work Phone: Start: 69-82-7816Xipevcncsyu timeDaniel Dibardino Work Phone: Start: 85-88-5621Fxxwhjrqkidadj time partial plasma/whole bloodDaniel Dibardino Work Phone: Start: 10-98-2324NXUXZ GAP (CALC) POCDaniel Dibardino Work Phone: Start: 89-72-9622POWTKGQH BLOOD GAS, POCDaniel Dibardino Work Phone: Start: 42-06-5147Vgppp count hemoglobinDaniel Dibardino Work Phone: Start: 41-29-3590IADDGLB, IONIC (POC)Caro Dibardino Work Phone: Start: 51-87-9507Jwvvmvoq [Moles/Vol]Caro Dibardino Work Phone: Start: 09-58-7467JOPPZDNCSZ W/GFR POINT OF CAREDaniel Dibardino Work Phone: Start: 30-31-7257Tpxo bld gluc mntr dev cleared fda spec home useDaniel Dibardino Work Phone: Start: 19-47-3821WFKXMF ACID,POINT OF CAREDaniel Dibardino Work Phone: Start: 53-87-8624Tssydgroh [Moles/Vol]Caro Dibardino Work Phone: Start: 17-91-4881Mfqjan [Moles/Vol]Caro Dibardino Work Phone: Start: 59-78-0769ZMU DRAWNicholas A Bethea Work Phone: Start: 16-47-9207TLWMKT AND OUTPUTDANIEL DIBARDINO Start: 94-66-8787CCFFTS INTAKE AND OUTPUTDANIEL DIBARDINOStart: 36-78-1325NVMXJJ ARTERIAL LINEDANIEL DIBARDINOStart: 54-45-3567Gsqixus blood reagent stripDANIEL DIBARDINOStart: 16-78-8791Fhvqovi blood reagent stripDaniel Dibardino Work Phone: Start: 05-60-3675Swxufoqqsdgldh time partial plasma/whole bloodDANIEL DIBARDINOStart: 49-09-7960Vxhztlo blood reagent strip CARO DIBARDINOStart: 80-65-5166Pav routine ecg w/least 12 lds w/i&rDANIEL DIBARDINOStart: 15-70-4639FOK REPORTDANIEL DIBARDINOStart: 07-09-2019 Thromboplastin time partial plasma/whole bloodNicholas A Bethea Work Phone: Start: 32-08-1843Hpadcns blood reagent stripDaniel Dibardino Work Phone: Start: 75-82-4509Auc routine ecg w/least 12 lds trcg only w/o i&rMobasser Homer Work Phone: Start: 16-34-3145ZJW REPORTHpf ScanningStart: 62-74-2889CEEGD TUBE REMOVALDANIEL DIBARDINOStart: 32-25-0245Zzsqq metabolic panel calcium totalDANIEL DIBARDINOStart: 06-73-5242Uolsg count complete automatedDANIEL DIBARDINOStart: 81-83-2855ZVIATUNB BLOOD GAS, POCDANIEL DIBARDINOStart: 06-54-6924FQDXKL ACID,POINT OF CAREDANIEL DIBARDINOStart: 82-63-6818Xvthkmhvm serum plasma/whole bloodDANIEL DIBARDINOStart: 07-09-2019 Glucose blood reagent stripDANIEL DIBARDINOStart: 11-92-5013Omvug metabolic panel calcium totalDaniel Dibardino Work Phone: Start: 29-00-6901Bbrhu count complete automatedDaniel Dibardino Work Phone: Start: 55-04-3269DFDOFCKM BLOOD GAS, POCDaniel Dibardino Work Phone: Start: 11-43-4607VKJWMV ACID,POINT OF CAREDaniel Dibardino Work Phone: Start: 29-60-6774Nhqszrdyr [Moles/Vol]Caro Lockeardino Work Phone: Start: 67-34-2183Rpnayzg blood reagent stripDaniel Dibardino Work Phone: Start: 09-03-8662TWAJNYKD OXYGEN THERAPY PROTOCOL CARO DIBARDINOStart: 89-16-9210Ccepald blood reagent stripDANIEL DIBARDINO Start: 27-73-4161Lsfisndoqn exam chest single viewDANIEL DIBARDINOStart: 07-94-6009Zskbx of magnesiumDANIEL DIBARDINOStart: 66-51-3243Fctbi of phosphorus inorganicDANIEL DIBARDINOStart: 17-96-1229Qiaag of triglyceridesDANIEL DIBARDINOStart: 24-92-2947Mjdom count complete automatedDANIEL DIBARDINOStart: 77-40-7855Ssqxndzbbgnwi metabolic panelDANIEL DIBARDINOStart: 07-09-2019 Prothrombin timeDANIEL DIBARDINOStart: 85-03-7843Qfgxstgtfbrwbo time partial plasma/whole bloodDANIEL DIBARDINOStart: 82-94-2551Pnvumxl blood reagent strip Caro Dibardino Work Phone: Start: 94-56-2125Elarisdqcr exam chest single view Brianna L Schetheresaun Work Phone: Start: 13-22-5000Ooeqv of magnesiumDaniel Dibardino Work Phone: Start: 62-47-7104Flgmf of phosphorus inorganicJoseph Early Work Phone: Start: 47-92-9747Rbbvw of triglyceridesJoseph Early Work Phone: Start: 91-57-5461Yleus count complete automatedDaniel Dibardino Work Phone: Start: 97-62-5355Ntdohmubddjom metabolic panelJoseph Early Work Phone: Start: 85-40-4949Uvlkgxulnvt timeDaniel Dibardino Work Phone: Start: 18-49-0667Xbmimilrgetxpo time partial plasma/whole bloodJoseph Early Work Phone: Start: 85-50-9665DRXQHY AND OUTPUTDANIEL DIBARDINO Start: 51-20-3137LCLFYS INTAKE AND OUTPUTDANIEL DIBARDINOStart: 61-18-7758Ihpdg of ammoniaDANIEL DIBARDINOStart: 19-61-9604Hakunmy function panelDANIEL DIBARDINOStart: 14-86-1135Qyftelk blood reagent stripDANIEL DIBARDINOStart: 64-50-5879Efjdj of ammoniaBobbi L Schelkun Work Phone: Start: 31-60-3563Gjokutm function panelBobbi L Schelkun Work Phone: Start: 65-16-6275Isdefdh blood reagent stripDaniel Dibardino Work Phone: Start: 61-62-4127Sfusluw blood reagent stripDANIEL DIBARDINOStart: 94-87-3854Ocrpe metabolic panel calcium totalDANIEL DIBARDINO Start: 23-76-3693Ijaopry blood reagent stripDaniel Dibardino Work Phone: Start: 84-02-7459MGFNYZKB BLOOD GAS, POCDANIEL DIBARDINOStart: 34-74-2955Gbys bld gluc mntr dev cleared fda spec home useDANIEL DIBARDINOStart: 22-55-7991Jsdtlaxiz serum plasma/whole bloodDANIEL DIBARDINO Start: 53-95-7023Mzbcy metabolic panel calcium totalDaniel Dibardino Work Phone: Start: 79-61-8151LGLOIMZM BLOOD GAS, POCDaniel Dibardino Work Phone: Start: 19-95-4437Kbcu bld gluc mntr dev cleared fda spec home useDaniel Dibardino Work Phone: Start: 18-97-7465Kbwtwkbgi [Moles/Vol]Caro Dibardino Work Phone: Start: 57-43-4418Jafbruo blood reagent stripDANIEL DIBARDINOStart: 27-33-4569Pescunrmnk exam abdomen 1 viewDANIEL DIBARDINOStart: 10-25-2604ZA CONSULT TO DIETITIANDANIEL DIBARDINOStart: 22-22-5383LFPEIHX HOB CARO DIBARDINOStart: 49-47-5422DMPNDV INTAKE AND OUTPUTDANIEL DIBARDINOStart: 55-44-6417Bxufzcm blood reagent stripDaniel Dibardino Work Phone: Start: 51-62-8497EUOMRFET BLOOD GAS, POCDANIEL DIBARDINOStart: 75-48-7562KYI DRAWDANIEL DIBARDINOStart: 16-63-6257Pqkxjqxayu exam abdomen 1 viewJoseph Early Work Phone: Start: 80-48-3390RIBQOUQL OXYGEN THERAPY PROTOCOL CARO DIBARDINOStart: 64-84-3126Bofpgxf blood reagent stripDANIEL DIBARDINO Start: 14-04-4772QCGVGBCB BLOOD GAS, POCDaniel Dibardino Work Phone: Start: 88-86-1785NDK DRAWBobbi L Schelkun Work Phone: Start: 54-26-9850Vo head/brain w/o contrast material CARO DIBARDINOStart: 31-93-7696Tbrdjqmuya exam chest single viewDANIEL DIBARDINOStart: 81-91-2637Upcudnv blood reagent stripDaniel Dibardino Work Phone: Start: 33-36-8617Db head/brain w/o contrast material Xavier Sreemeeta Henriquez Work Phone: Start: 17-05-4681Zexjr of magnesiumDANIEL DIBARDINO Start: 23-57-5529Ywvhr metabolic panel calcium totalDANIEL DIBARDINOStart: 66-12-4694Iarrf count complete automatedDANIEL DIBARDINOStart: 07-08-2019 Prothrombin timeDANIEL DIBARDINOStart: 03-61-5803Ycakuhcfkm exam chest single viewBobbi L Schelkun Work Phone: Start: 21-28-9881Ndcmd of magnesiumDaniel Dibardino Work Phone: Start: 16-90-3513Cwiwf metabolic panel calcium total Caro Dibardino Work Phone: Start: 31-90-0545Fkwop count complete automatedDaniel Dibardino Work Phone: Start: 42-09-8468Jounvdzpuea timeDaniel Dibardino Work Phone: Start: 52-60-9821XSXSQJ AND OUTPUTDANIEL DIBARDINO Start: 82-44-3256Ekpsnrdkwcdubwllwgxa w/rec awake&asleepDANIEL DIBARDINOStart: 32-14-1604Tyortva blood reagent stripDANIEL DIBARDINOStart: 51-76-7890JOBUpgyusj Sree Henriquez Work Phone: Start: 59-63-1613Qowccjx blood reagent stripDaniel Dibardino Work Phone: Start: 69-29-6721Hncppfbqxwyrs metabolic panelDANIEL DIBARDINOStart: 01-22-4240Goficao blood reagent stripDANIEL DIBARDINOStart: 32-54-9549YUSMO GAP (CALC) POCDANIEL DIBARDINOStart: 60-01-5815WMNMALXA BLOOD GAS, POCDANIEL DIBARDINOStart: 90-79-5339Akswj count hemoglobinDANIEL DIBARDINO Start: 84-28-1173Rpzuyly ionizedDANIEL DIBARDINOStart: 11-54-3436Upormrbr other sourceDANIEL DIBARDINOStart: 54-95-1316BQDSHMJOFD W/GFR POINT OF CAREDANIEL DIBARDINOStart: 59-45-6581Rxst bld gluc mntr dev cleared fda spec home useDANIEL DIBARDINOStart: 70-85-1816TEWWGM ACID,POINT OF CAREDANIEL DIBARDINOStart: 69-13-3468Cryowitle serum plasma/whole bloodDANIEL DIBARDINOStart: 07-07-2019 Sodium serum plasma or whole bloodDANIEL DIBARDINOStart: 92-49-8847FPFBR METABOLIC PANEL W/ REFLEX TO MG FOR LOW KDaniel Dibardino Work Phone: Start: 11-68-3091Ziddykr blood reagent stripDaniel Dibardino Work Phone: start: 32-46-9716BMXWVUQJPNYTNUMZ DIBARDINOStart: 26-59-9195PLJFK GAP (CALC) POCDaniel Dibardino Work Phone: Start: 63-12-2809WMUUIFWR BLOOD GAS, POCDaniel Dibardino Work Phone: Start: 98-77-4489Vdukq count hemoglobinDaniel Dibardino Work Phone: Start: 37-11-4830IHGPNLE, IONIC (POC)Caro Dibardino Work Phone: Start: 79-29-8811Nppencxl [Moles/Vol]Caro Dibardino Work Phone: Start: 28-37-8941TSHVKJZYKJ W/GFR POINT OF CAREDaniel Dibardino Work Phone: Start: 09-59-1882Ykfc bld gluc mntr dev cleared fda spec home useDaniel Dibardino Work Phone: Start: 81-04-2465JXGCHP ACID,POINT OF CAREDaniel Dibardino Work Phone: Start: 24-89-5763Xwnaixygu [Moles/Vol]Caro Dibardino Work Phone: Start: 50-83-1583Ceahng [Moles/Vol]Caro Dibardino Work Phone: Start: 54-79-8711Lnq routine ecg w/least 12 lds w/i&r CARO DIBARDINOStart: 36-18-5373GIT REPORTDANIEL DIBARDINOStart: 07-07-2019 ARTERIAL BLOOD GAS, POCDANIEL DIBARDINOStart: 52-04-2966Ruugamlma serum plasma/whole bloodDANIEL DIBARDINOStart: 06-00-5764PETKIXAKWYYwqnm L Schelkun Work Phone: Start: 11-77-0629CS CONSULT TO NEUROLOGYDANIEL DIBARDINOStart: 97-53-1471Jkd routine ecg w/least 12 lds i&r onlyDaniel Dibardino Work Phone: Start: 12-28-3038VFE REPORTHpf ScanningStart: 71-38-4419Mwgquee blood reagent stripDANIEL DIBARDINOStart: 54-80-7284ZXGQEMXR PATIENTDANIEL DIBARDINOStart: 72-98-7996QXQFEGHE BLOOD GAS, POCDaniel Dibardino Work Phone: Start: 15-50-0732Yhxwxyevv [Moles/Vol]Caro Dibardino Work Phone: Start: 78-24-8968JRYOQXDO PATIENTDANIEL DIBARDINO Start: 89-47-9185Geepmxa blood reagent stripDaniel Dibardino Work Phone: Start: 24-53-3833Pxq routine ecg w/least 12 lds w/i&r CARO DIBARDINOStart: 44-05-5004ZOA REPORTDANIEL DIBARDINOStart: 07-07-2019 ARTERIAL BLOOD GAS, POCDANIEL DIBARDINOStart: 21-99-3396Ktwqfjr ionizedDANIEL DIBARDINOStart: 50-11-9825Zjjm bld gluc mntr dev cleared fda spec home useDANIEL DIBARDINOStart: 33-17-0665Hecsppshu serum plasma/whole bloodDANIEL DIBARDINO Start: 28-22-2496DLZRUCDY OXYGEN THERAPY PROTOCOLDANIEL DIBARDINOStart: 29-45-6427Laen transthorc r-t 2d w/wo m-mode rec f-up/lmtdDANIEL DIBARDINOStart: 77-49-3505Ypw routine ecg w/least 12 lds i&r onlyDaniel Dibardino Work Phone: Start: 37-03-5503SPW REPORTHpf ScanningStart: 98-54-0090XQSENTXJ BLOOD GAS, POCDaniel Dibardino Work Phone: Start: 63-34-5304NHSIIMD, IONIC (POC)Caro Dibardino Work Phone: Start: 80-22-2971Xrds bld gluc mntr dev cleared fda spec home useDaniel Dibardino Work Phone: Start: 37-11-8291Aagktfboc [Moles/Vol]Caro Dibardino Work Phone: Start: 90-92-8627Dplohoi blood reagent stripDANIEL DIBARDINOStart: 58-24-5302ESAYROYHCYNCGP LIMITEDRaza Dakota Work Phone: Start: 85-15-4407Yqzulxcpsj exam chest single view CARO DIBARDINOStart: 55-46-7949Jwjwtea blood reagent stripDaniel Dibardino Work Phone: Start: 36-83-6134EONFTDJM BLOOD GAS, POCDANIEL DIBARDINOStart: 59-75-2886Ggosqciytn exam chest single viewNicaguilar Bethea Work Phone: Start: 70-45-9455Mqz routine ecg w/least 12 lds w/i&r CARO DIBARDINOStart: 20-08-2312HRQ REPORTDANIEL DIBARDINOStart: 07-07-2019 Assay of magnesiumDANIEL DIBARDINOStart: 41-36-9621Jbhms metabolic panel calcium totalDANIEL DIBARDINOStart: 61-78-3101Bqmnc count complete automatedDANIEL DIBARDINOStart: 21-28-9669Lnaz screen quantitative vancomycinDANIEL DIBARDINO Start: 45-79-2022Oqkgugbksrq timeDANIEL DIBARDINOStart: 62-26-2239TXN DRAWDANIEL DIBARDINOStart: 76-70-4892QUYIKLNZ BLOOD GAS, POCDANIEL DIBARDINOStart: 61-39-2238Lxbn bld gluc mntr dev cleared fda spec home useDANIEL DIBARDINOStart: 12-71-1242HYQMSQGV BLOOD GAS, POCDaniel Dibardino Work Phone: Start: 94-55-2107Pbw routine ecg w/least 12 lds trcg only w/o i&rDaniel Dibardino Work Phone: Start: 06-96-3439IXE REPORTHpf ScanningStart: 00-94-8285Exgbq of magnesiumDaniel Dibardino Work Phone: Start: 37-83-9340Xzwlq metabolic panel calcium total Caro Lockeardino Work Phone: Start: 31-13-3639Fqpzh count complete automatedDaniel Dibardino Work Phone: Start: 19-62-5978Eyev screen quantitative vancomycin Caro Lockeardino Work Phone: Start: 70-05-9948Luegopowmjq timeDaniel Dibardino Work Phone: Start: 07-07-2019 End: 12-25-9673ARP DRAWBobbi L Schetheresaun Work Phone: Start: 88-14-7016NRKXLYCH BLOOD GAS, POCDaniel Dibardino Work Phone: Start: 15-11-7884Dwer bld gluc mntr dev cleared fda spec home useDaniel Dibardino Work Phone: Start: 78-00-6770JMOOUU AND OUTPUTDANIEL DIBARDINO Start: 72-50-5992DTGPFEK HEELS OFF OF BEDDANIEL DIBARDINOStart: 50-82-8644WAMZ OF BED 60 DEGREES OR LESSDANIEL DIBARDINOStart: 51-48-8394TEKBRDQ COMMUNICATION CARO WRAYNOStart: 54-72-8162NZDH PATIENTDANIEL DIBARDINOStart: 07-06-2019 RESTRAINTS NON-VIOLENT OR APP-HRNB-AYNGFDBZTMODIPBQJ DIBARDINOStart: 07-06-2019 Glucose blood reagent stripDANIEL DIBARDINOStart: 63-19-5650EFK BLOOD GASDANIEL DIBARDINOStart: 95-47-9791Ao head/brain w/o contrast materialDANIEL DIBARDINO Start: 32-61-4980Yrwlbpv blood reagent stripDaniel Dibardino Work Phone: Start: 81-67-7759USUERKLG BLOOD GAS, POCDANIEL DIBARDINOStart: 39-26-5450Ebmf bld gluc mntr dev cleared fda spec home useDANIEL DIBARDINOStart: 12-72-1875Hpe routine ecg w/least 12 lds w/i&rDANIEL DIBARDINO Start: 35-27-0807NUB REPORTDANIEL DIBARDINOStart: 52-23-8202Gs head/brain w/o contrast materialNicholas A Bethea Work Phone: Start: 49-35-0542Bnavg metabolic panel calcium total CARO DIBARDINOStart: 89-42-7403WJUBGMFG BLOOD GAS, POCDaniel Dibardino Work Phone: Start: 89-70-4191Gfen bld gluc mntr dev cleared fda spec home useDaniel Dibardino Work Phone: Start: 75-12-5465Wtn routine ecg w/least 12 lds trcg only w/o i&rMobasser Homer Work Phone: Start: 98-32-8684ZNI REPORTHpf ScanningStart: 48-84-8751Ukpjn metabolic panel calcium totalNicholas A Bethea Work Phone: Start: 38-12-2382Bhgj bld gluc mntr dev cleared fda spec home useDANIEL DIBARDINOStart: 76-09-5275BNDPUNCR BLOOD GAS, POCDANIEL DIBARDINOStart: 84-01-8795Adpf bld gluc mntr dev cleared fda spec home useDaniel Dibardino Work Phone: Start: 67-19-5201PSAJJCDI BLOOD GAS, POCDANIEL DIBARDINOStart: 07-06-2019 End: 09-80-7506TYYCAYYF BLOOD GAS, POCDaniel Dibardino Work Phone: Start: 72-06-0714Ztw routine ecg w/least 12 lds w/i&r CARO DIBARDINOStart: 58-30-9795QVU REPORTDANIEL DIBARDINOStart: 44-82-2300UZI BLOOD GASDANIEL DIBARDINOStart: 76-08-5067WLQNHSTA OXYGEN THERAPY PROTOCOLDANIEL DIBARDINOStart: 07-06-2019 End: 82-64-7981GWDRVVSR BLOOD GAS, POCDaniel Dibardino Work Phone: Start: 70-15-4865Ozld bld gluc mntr dev cleared fda spec home useDaniel Dibardino Work Phone: Start: 71-18-4678Sme routine ecg w/least 12 lds w/i&r CARO DIBARDINOStart: 77-70-4186Vnv routine ecg w/least 12 lds i&r onlyDaniel Dibardino Work Phone: Start: 68-14-4159QRO REPORTHpf ScanningStart: 25-57-7474Rnjtamgkdo exam chest single viewDANIEL DIBARDINOStart: 03-92-5440Qmu routine ecg w/least 12 lds i&r onlyMobasser Homer Work Phone: Start: 39-01-3662RGA REPORTHpf ScanningStart: 68-74-9146Bxuwf of magnesiumDANIEL DIBARDINOStart: 41-58-8403Bpqwp metabolic panel calcium totalDANIEL DIBARDINOStart: 70-55-7206Toxof count complete automatedDANIEL DIBARDINOStart: 59-30-3834Hulf screen quantitative vancomycin CARO DIBARDINOStart: 40-61-6015Ejcdwya function panelDANIEL DIBARDINOStart: 35-51-0057Lewvlyiolfh timeDANIEL DIBARDINOStart: 55-05-9218JCLJSKWI BLOOD GAS, POCDANIEL DIBARDINOStart: 82-34-4783Xpyaweoiud exam chest single viewJoseph Early Work Phone: Start: 59-85-8696Uxsaq of magnesiumDaniel Dibardino Work Phone: Start: 55-44-3863Tbemt metabolic panel calcium total Caro Dibardino Work Phone: Start: 72-60-8909Wxkvm count complete automatedDaniel Dibardino Work Phone: Start: 77-05-2162Isfb screen quantitative vancomycin Ashley Cesar Work Phone: Start: 37-27-0270Hlvguka function panelDaniel Dibardino Work Phone: Start: 04-28-5439Ppwsoxnepux timeDaniel Dibardino Work Phone: Start: 21-34-3189CZEGMJFR BLOOD GAS, POCDaniel Dibardino Work Phone: Start: 50-27-6164QKMSDY AND OUTPUTDANIEL DIBARDINO Start: 28-73-6537Ki retroperitoneal real time w/image completeDANIEL DIBARDINO Start: 92-36-9458Svvhhyc blood reagent stripDANIEL DIBARDINOStart: 92-15-1827Sa retroperitoneal real time w/image completeDivya Cesar Work Phone: Start: 33-40-5539Xsqbrzb blood reagent stripDaniel Dibardino Work Phone: Start: 58-86-3756IMGTEYBTDC NON-VIOLENT OR LSN-HANJ-YTICTEINSIZSLKNQW DIBARDINOStart: 95-03-5540Khnta metabolic panel calcium totalDANIEL DIBARDINOStart: 83-63-6662Yrauvgv blood reagent stripDANIEL DIBARDINOStart: 65-70-8227Psjwg metabolic panel calcium totalNishant Hai Work Phone: Start: 81-38-4526Vjrbohx blood reagent stripDaniel Dibardino Work Phone: Start: 27-08-4122Mlgiz of urine sodiumDANIEL DIBARDINO Start: 13-50-4421Uglbrtlp urineDANIEL DIBARDINOStart: 39-80-8253Lapuvyfnmq other sourceDANIEL DIBARDINOStart: 52-58-0666Tumomjzno urineDANIEL DIBARDINOStart: 25-49-8805Douofzy electrop fxj&mynor oth flus concentratiDANIEL DIBARDINOStart: 44-03-1179Lquyt dip stick/tablet reagent auto microscopyDANIEL DIBARDINOStart: 29-51-8332Etlplftnorl antibodies anaDANIEL DIBARDINOStart: 19-05-3333Qmzgwoiuss antigen each componentDANIEL DIBARDINOStart: 26-12-1761Asklotuevn electrophoresis serumDANIEL DIBARDINOStart: 62-95-6455Axwrruc electrophoretic fractj&quantj serumDANIEL DIBARDINOStart: 83-48-6355Pbghc hepatitis panelDANIEL DIBARDINOStart: 85-71-8929Xpucf of ammoniaDANIEL DIBARDINOStart: 23-10-3591MN GAS,MIX-RUFINO,EXTDaniel Dibardino Work Phone: Start: 57-51-2851Ajgtced blood reagent stripDANIEL DIBARDINOStart: 82-16-3918NP CONSULT TO NEPHROLOGYDANI DIBARDINOStart: 92-89-8242Dor routine ecg w/least 12 lds w/i&rDANIEL DIBARDINOStart: 07-05-2019 EKG REPORTDANIEL DIBARDINOStart: 36-88-4240Ibtpj of urine sodiumDivya Cesar Work Phone: Start: 01-69-7517Kseidbyn urineDivya Cesar Work Phone: Start: 97-01-5745Tlhcegzmfj other sourceDivya Cesar Work Phone: Start: 92-49-8981Norqqsdfz urineDivya Cesar Work Phone: Start: 39-88-5347Jhrhuqz electrop fxj&mynor oth flus concentratiDivya Cesar Work Phone: Start: 65-85-7406Ixsak dip stick/tablet reagent auto microscopyDivya Cesar Work Phone: Start: 77-88-5943Suuiqqugnbr antibodies anaDivya Cesar Work Phone: Start: 68-53-1737Tgqguaqani antigen each component Ashley Cesar Work Phone: Start: 82-43-5089YKPSICT LABORATORY CHARGEDivya Cesar Work Phone: Start: 70-50-9543Oxfbdig electrophoretic fractj&quantj serumDivya Cesar Work Phone: Start: 51-63-7821Exvra hepatitis panelDivya Cesar Work Phone: Start: 83-65-4544Asvry of ammoniaJoseph Early Work Phone: Start: 68-73-3150Zrqdldm blood reagent stripDaniel Dibardino Work Phone: Start: 44-16-9629Ask routine ecg w/least 12 lds i&r onlyNuha Coronel Work Phone: Start: 26-98-2551HXL REPORTHpf ScanningStart: 88-38-8487MPMEWLCM OXYGEN THERAPY PROTOCOLDANIEL DIBARDINOStart: 22-48-6385DL CONSULT TO NEPHROLOGYDANIEL DIBARDINOStart: 82-64-4126Xnzykky blood reagent stripDANIEL DIBARDINOStart: 29-64-7692EDYZK GAP (CALC) POCDANIEL DIBARDINOStart: 40-87-0885VAUHJOLA BLOOD GAS, POCDANIEL DIBARDINOStart: 33-79-1414Ciffr count hemoglobinDANIEL DIBARDINOStart: 78-51-1321Asuhtwl ionizedDANIEL DIBARDINOStart: 23-82-7631Ajptcobb other sourceDANIEL DIBARDINOStart: 07-51-6789OZYULBJUMK W/GFR POINT OF CAREDANIEL DIBARDINOStart: 00-36-1427Ontf bld gluc mntr dev cleared fda spec home useDANIEL DIBARDINOStart: 86-05-0797TQEWFW ACID,POINT OF CAREDANIEL DIBARDINOStart: 24-85-1482Eyfavp serum plasma or whole bloodDANIEL DIBARDINOStart: 23-56-8653Psugtqgcxn exam chest single viewDANIEL DIBARDINO Start: 03-86-0182Pnljx of magnesiumDANIEL DIBARDINOStart: 25-70-3609Kects metabolic panel calcium totalDANIEL DIBARDINOStart: 69-01-6874Auibe count complete automatedDANIEL DIBARDINOStart: 39-12-4349Cpuqutdlmjk timeDANIEL DIBARDINOStart: 32-53-2837MUFOC GAP (CALC) POCDANIEL DIBARDINOStart: 07-05-2019 ARTERIAL BLOOD GAS, POCDANIEL DIBARDINOStart: 26-40-3742Qxyosdr ionizedDANIEL DIBARDINOStart: 67-88-6678Lpcrnusy other sourceDANIEL DIBARDINOStart: 07-05-2019 CREATININE W/GFR POINT OF CAREDANIEL DIBARDINOStart: 13-82-4148RQGNEF ACID,POINT OF CAREDANIEL DIBARDINOStart: 80-41-7433Jggqeledi serum plasma/whole blood CARO DIBARDINOStart: 19-52-7527Pwnucb serum plasma or whole bloodDANIEL DIBARDINOStart: 36-64-8661Rjlgkol blood reagent stripDaniel Dibardino Work Phone: Start: 96-79-7280QZCXG GAP (CALC) POCDaniel Dibardino Work Phone: Start: 66-58-6437LJJPPVZQ BLOOD GAS, POCDaniel Dibardino Work Phone: Start: 28-85-3314Ijhmg count hemoglobinDaniel Dibardino Work Phone: Start: 71-35-3772HVSRYEQ, IONIC (POC)Caro Dibardino Work Phone: Start: 82-20-2551Kzukphsx [Moles/Vol]Caro Dibardino Work Phone: Start: 12-98-1265OJQDEUJHKK W/GFR POINT OF CAREDaniel Dibardino Work Phone: Start: 73-44-9759Wkos bld gluc mntr dev cleared fda spec home useDaniel Dibardino Work Phone: Start: 02-31-8591UZRKDK ACID,POINT OF CAREDaniel Dibardino Work Phone: Start: 31-56-5567Bahzormkn [Moles/Vol]Caro Dibardino Work Phone: Start: 82-30-7867Umitlu [Moles/Vol]Caro Dibardino Work Phone: Start: 58-21-8325Vhyocurlnl exam chest single view Shant Early Work Phone: Start: 23-73-8622Xlqtj of magnesiumDaniel Dibardino Work Phone: Start: 20-94-4726Relfj metabolic panel calcium total Caro Dibardino Work Phone: Start: 40-47-9789Uresw count complete automatedDaniel Dibardino Work Phone: Start: 06-92-3664Wfxfkoybwwi timeDaniel Dibardino Work Phone: Start: 58-13-7207LULMH GAP (CALC) POCDaniel Dibardino Work Phone: Start: 03-77-4159VFOBHFSF BLOOD GAS, POCDaniel Dibardino Work Phone: Start: 64-30-1615Jyvix count hemoglobinDaniel Dibardino Work Phone: Start: 44-57-6375INKBWLG, IONIC (POC)Caro Dibardino Work Phone: Start: 85-29-7504Fwbwwnnn [Moles/Vol]Caro Dibardino Work Phone: Start: 99-16-2004QNUMZHIIDA W/GFR POINT OF CAREDaniel Dibardino Work Phone: Start: 49-68-1482Vwth bld gluc mntr dev cleared fda spec home useDaniel Dibardino Work Phone: Start: 32-53-0429QMDMZI ACID,POINT OF CAREDaniel Dibardino Work Phone: Start: 44-24-5289Nfvwukvye [Moles/Vol]Caro Dibardino Work Phone: Start: 81-27-0524Xewwcl [Moles/Vol]Caro Dibardino Work Phone: Start: 94-66-4607Ydqwf gases any combination ph pco2 po2 co2 lhn3KTYMQL DIBARDINOStart: 68-42-9261ITIRSN AND OUTPUTDANIEL DIBARDINO Start: 90-75-2411DIZGSHR MAY SHOWERDANIEL DIBARDINOStart: 63-19-8130Punbjct blood reagent stripDANIEL DIBARDINOStart: 66-22-1994LROSETIL PATIENTDANIEL DIBARDINOStart: 26-40-5499Qbtnsat blood reagent stripDaniel Dibardino Work Phone: Start: 07-04-2019 End: 05-81-0253Qjijrzezd serum plasma/whole bloodDaniel Dibardino Work Phone: Start: 81-28-7329Nckec of magnesiumDANIEL DIBARDINO Start: 06-74-4861Ibgeweq blood reagent stripDaniel Dibardino Work Phone: [phone]: 88-16-6409Ffasx of magnesiumDaniel Dibardino Work Phone: [phone]: 27-22-0590Uryrqcg blood reagent stripDaniel Dibardino Work Phone: Start: 17-48-8268ZJRZTGGTZG NON-VIOLENT OR FBL-EFZZ-WHGQYTOJYFPTWJRGG DIBARDINOStart: 74-41-4203Tshgnzt blood reagent strip Caro Dibardino Work Phone: Start: 41-75-3103Clcwletv alejandro-hughes eb virus nuclear ag ebnaDANIEL DIBARDINOStart: 25-92-4076Boefz of lactateDANIEL DIBARDINO Start: 98-96-2248Duwfm of magnesiumDANIEL DIBARDINOStart: 50-08-8841Xckys metabolic panel calcium totalDANIEL DIBARDINOStart: 90-40-2881Ywpgamt ionized CARO DIBARDINOStart: 18-95-4417NQUADZWUXV AND HEMATOCRIT, BLOODDANIEL DIBARDINOStart: 60-28-2208Keueimh blood reagent stripDANIEL DIBARDINOStart: 23-08-5688Jgzgb of lactateDaniel Dibardino Work Phone: [phone]: 92-05-4445Rgrys of magnesiumDaniel Dibardino Work Phone: Start: 46-72-2750Eeozr metabolic panel calcium total Caro Dibardino Work Phone: Start: 56-43-3359Dmhjd count hemoglobinDaniel Dibardino Work Phone: Start: 43-55-3005Aibfcqq ionizedDaniel Dibardino Work Phone: Start: 08-26-2015PVJP HEART COAGDaniel Dibardino Work Phone: Start: 74-63-5329Abtuchd blood reagent stripDaniel Dibardino Work Phone: Start: 72-86-1449Fkyylfw blood reagent stripDaniel Dibardino Work Phone: Start: 59-82-5335Xmtyxmuqnn exam chest single view CARO DIBARDINOStart: 33-96-5400Bsleiaem alejandro-hughes eb virus nuclear ag ebna CARO DIBARDINOStart: 54-23-8236Hodwr of lactateDANIEL DIBARDINOStart: 73-48-7509Jtsld of magnesiumDANIEL DIBARDINOStart: 25-01-5616Tmlti metabolic panel calcium totalDANIEL DIBARDINOStart: 98-88-6163Wybcf count complete automatedDANIEL DIBARDINOStart: 19-87-1974TDJCR GAP (CALC) POCDANIEL DIBARDINO Start: 13-57-2241ALCXDHFN BLOOD GAS, POCDANIEL DIBARDINOStart: 92-02-1783Xnyoh count hemoglobinDANIEL DIBARDINOStart: 89-20-4929Gskcftp ionizedDANIEL DIBARDINO Start: 95-99-2932Tgrdifwr other sourceDANIEL DIBARDINOStart: 07-04-2019 CREATININE W/GFR POINT OF CAREDANIEL DIBARDINOStart: 49-59-8858Mjjw bld gluc mntr dev cleared fda spec home useDANIEL DIBARDINOStart: 53-22-0553XYTMLO ACID,POINT OF CAREDANIEL DIBARDINOStart: 40-07-6724Ltkbew serum plasma or whole bloodDANIEL DIBARDINOStart: 43-76-7231KPSKVXMH PATIENTDANIEL DIBARDINOStart: 02-61-0117Lvemvgjbxm exam chest single viewDaniel Dibardino Work Phone: Start: 54-29-1587MOWSKLOK OXYGEN THERAPY PROTOCOL CARO DIBARDINOStart: 22-79-0946Ibeso of lactateDaniel Dibardino Work Phone: Start: 86-65-9682Qsdxh of magnesiumDaniel Dibardino Work Phone: Start: 85-34-0866Xbuxo metabolic panel calcium total Caro Dibardino Work Phone: [phone]: 93-41-2301Wxhbt count complete automatedDaniel Dibardino Work Phone: [phone]: 71-04-5390Chgyzzr ionizedDaniel Dibardino Work Phone: [phone]: 42-30-3245OCOJ HEART COAGDaniel Dibardino Work Phone: [phone]: 67-01-9696BOMHB GAP (CALC) POCDaniel Dibardino Work Phone: [phone]: 03-00-4878WXRIYPIN BLOOD GAS, POCDaniel Dibardino Work Phone: [phone]: 93-83-8660Ssqqp count hemoglobinDaniel Dibardino Work Phone: [phone]: 68-13-7048ACYKAPY, IONIC (POC)Caro Dibardino Work Phone: Start: 23-31-0130Qobeggmr [Moles/Vol]Caro Dibardino Work Phone: Start: 01-09-0455SZWBRKXPVI W/GFR POINT OF CAREDaniel Dibardino Work Phone: Start: 86-58-6784Bypx bld gluc mntr dev cleared fda spec home useDaniel Dibardino Work Phone: [phone]: 39-16-2576YGBRUK ACID,POINT OF CAREDaniel Dibardino Work Phone: Start: 91-72-4973Rvvcfyapv [Moles/Vol]Caro Dibardino Work Phone: Start: 26-69-1941Gduyqd [Moles/Vol]Caro Dibardino Work Phone: Start: 72-73-7780Ihwfvmvcjti blood/blood components CARO DIBARDINOStart: 31-06-5320IFJAGHJMD PLATELETSDANIEL DIBARDINOStart: 31-13-8103Amcytpahdy exam chest single viewDANIEL DIBARDINOStart: 07-04-2019 Transfusion blood/blood componentsDANIEL DIBARDINOStart: 63-52-8723Rttrwbd blood reagent stripDANIEL DIBARDINOStart: 07-04-2019 End: 99-84-6205Wndaajpeh closure surg wound/dehsn extsv/complicDaniel Dibardino Work Phone: Start: 06-66-5772Fbeyw of magnesiumDANIEL DIBARDINO Start: 08-01-4586Cypam metabolic panel calcium totalDANIEL DIBARDINOStart: 46-04-3207Lwmro count complete automatedDANIEL DIBARDINOStart: 07-04-2019 Prothrombin timeDANIEL DIBARDINOStart: 73-89-0972HIBGSIIZV PLATELETSDaniel Dibardino Work Phone: Start: 19-51-1943UOEZW GAP (CALC) POCDANIEL DIBARDINO Start: 88-22-3663YEHDDLRD BLOOD GAS, POCDANIEL DIBARDINOStart: 04-71-2557Upqpi count hemoglobinDANIEL DIBARDINOStart: 59-12-3864Agvdpzh ionizedDANIEL DIBARDINO Start: 71-53-7036Cmxifeqe other sourceDANIEL DIBARDINOStart: 07-04-2019 CREATININE W/GFR POINT OF CAREDANIEL DIBARDINOStart: 33-40-7885Zewv bld gluc mntr dev cleared fda spec home useDANIEL DIBARDINOStart: 56-67-4160FNZWFB ACID,POINT OF CAREDANIEL DIBARDINOStart: 34-73-7639Zmorpr serum plasma or whole bloodDANIEL DIBARDINOStart: 67-10-8039Aqbmuphzrp exam chest single viewDaniel Dibardino Work Phone: Start: 12-06-4337YBYRUCJXT FRESH FROZEN PLASMADANIEL DIBARDINOStart: 90-72-8352YROCQTI PLATELETSDaniel Dibardino Work Phone: Start: 18-54-8398Hicuqlo blood reagent stripDaniel Dibardino Work Phone: Start: 07-04-2019 End: 49-93-6134Vtzkc of magnesiumDaniel Dibardino Work Phone: Start: 01-60-1642Eszzt metabolic panel calcium total Caro Dibardino Work Phone: [phone]: 93-34-3707Hwpus count complete automatedDaniel Dibardino Work Phone: [phone]: 44-03-0369Kglmltbytrw timeDaniel Dibardino Work Phone: [phone]: 68-18-9304SGZZN GAP (CALC) POCDaniel Dibardino Work Phone: [phone]: 31-07-2985JMQZVUII BLOOD GAS, POCDaniel Dibardino Work Phone: [phone]: 53-75-7994Yvcvf count hemoglobinDaniel Dibardino Work Phone: [phone]: 92-22-5231IESYSLN, IONIC (POC)Caro Dibardino Work Phone: [phone]: 31-97-9813Ijwaeyny [Moles/Vol]Caro Dibardino Work Phone: [phone]: 02-22-3506QQUOFRMIWZ W/GFR POINT OF CAREDaniel Dibardino Work Phone: Start: 85-89-8891Sppg bld gluc mntr dev cleared fda spec home useDaniel Dibardino Work Phone: Start: 85-48-2099Xkedkym blood reagent stripDaniel Dibardino Work Phone: Start: 04-70-0966ZJNBYN ACID,POINT OF CAREDaniel Dibardino Work Phone: [phone]: 36-04-1528Jdoclveqk [Moles/Vol]Caro Dibardino Work Phone: [phone]: 37-41-4464Kfhbcj [Moles/Vol]Caro Dibardino Work Phone: [phone]: 87-92-9112HIBYD GAP (CALC) POCDANIEL DIBARDINO Start: 93-46-7573GCNZWCDI BLOOD GAS, POCDANIEL DIBARDINOStart: 06-31-6679Igsdhos ionizedDANIEL DIBARDINOStart: 29-18-6294Yxudrrns other sourceDANIEL DIBARDINO Start: 07-31-2833UDPLUKINNT W/GFR POINT OF CAREDANIEL DIBARDINOStart: 07-04-2019 LACTIC ACID,POINT OF CAREDANIEL DIBARDINOStart: 88-09-1363Jjexbx serum plasma or whole bloodDANIEL DIBARDINOStart: 80-09-8437QXJHNQYPG FRESH FROZEN PLASMADaniel Dibardino Work Phone: Start: 15-92-0114Hwlakvn blood reagent stripDANIEL DIBARDINOStart: 37-37-3756SJWFK GAP (CALC) POCDaniel Dibardino Work Phone: Start: 59-10-5203UYCVYMED BLOOD GAS, POCDaniel Dibardino Work Phone: Start: 94-22-6421Ylgtd count hemoglobinDaniel Dibardino Work Phone: Start: 04-69-0727AAISFTX, IONIC (POC)Caro Dibardino Work Phone: Start: 03-30-5824Elrhopzs [Moles/Vol]Caro Dibardino Work Phone: Start: 79-69-2051DXOOANSCQC W/GFR POINT OF CAREDaniel Dibardino Work Phone: Start: 22-37-3689Qxcc bld gluc mntr dev cleared fda spec home useDaniel Dibardino Work Phone: Start: 17-52-3868VFADFV ACID,POINT OF CAREDaniel Dibardino Work Phone: Start: 63-85-2155Mjfpuqmef [Moles/Vol]Caro Dibardino Work Phone: Start: 16-21-7342Pnoodu [Moles/Vol]Caro Dibardino Work Phone: Start: 85-42-8773FZJWT/VASCULAR CHECKSDANIEL DIBARDINO Start: 88-86-4449RQFEMAH COMMUNICATIONDANIEL DIBARDINOStart: 25-98-4259SKUZNINP PATIENTDANIEL DIBARDINOStart: 34-21-7479KNFGV WEIGHTSDANIEL DIBARDINOStart: 24-21-7418RVMOIH AND OUTPUTDANIEL DIBARDINOStart: 47-57-8579KTVS BE UP FOR MEALS CARO DIBARDINOStart: 67-11-2014Lwojunxs alejandro-hughes eb virus nuclear ag ebna CARO DIBARDINOStart: 33-33-9657Cak routine ecg w/least 12 lds w/i&rDANIEL DIBARDINOStart: 30-74-6108VYT REPORTDANIEL DIBARDINOStart: 04-46-5097Tnvbb gases any combination ph pco2 po2 co2 vkx3PHFYAM DIBARDINOStart: 34-42-7418Sgcieqm blood reagent stripDaniel Dibardino Work Phone: Start: 53-31-0770Zjobk of lactateDANIEL DIBARDINO Start: 24-60-9627Qbdwt of magnesiumDANIEL DIBARDINOStart: 84-44-0344Xxasp metabolic panel calcium totalDANIEL DIBARDINOStart: 28-66-5636Iyxkj count complete auto&auto difrntl wbcDANIEL DIBARDINOStart: 85-71-8449Lymsgcmxzn activityDANIEL DIBARDINOStart: 14-91-7134Vswriyc function panelDANIEL DIBARDINO Start: 31-63-4460Wpcvbdkhceq timeDANIEL DIBARDINOStart: 36-52-2703VVRMTVORA FRESH FROZEN PLASMADANIEL DIBARDINOStart: 08-23-8528LRBDN GAP (CALC) POCDANIEL DIBARDINOStart: 14-66-4250AKQCVUKN BLOOD GAS, POCDANIEL DIBARDINOStart: 64-76-1028Virig count hemoglobinDANIEL DIBARDINOStart: 79-77-7000Hjtsloh ionized CARO DIBARDINOStart: 67-03-0235Eyixlwjx other sourceDANIEL DIBARDINOStart: 66-00-5902HMGDRHSDGM W/GFR POINT OF CAREDANIEL DIBARDINOStart: 56-18-0159Jnjv bld gluc mntr dev cleared fda spec home useDANIEL DIBARDINOStart: 07-04-2019 LACTIC ACID,POINT OF CAREDANIEL DIBARDINOStart: 75-55-7444Gdpjzazah serum plasma/whole bloodDANIEL DIBARDINOStart: 95-48-2943Utqqwh serum plasma or whole bloodDANIEL DIBARDINOStart: 91-54-9870Ilx routine ecg w/least 12 lds w/i&rDANIEL DIBARDINOStart: 84-56-3821YNUKTXWG PATIENTDANIEL DIBARDINOStart: 07-04-2019 TRANSFUSE PLATELETSDANIEL DIBARDINOStart: 42-29-1022Tvgklmwtsqc blood/blood componentsDANIEL DIBARDINOStart: 21-26-3636Ykrpkaj blood reagent stripDaniel Dibardino Work Phone: Start: 45-72-2239MAIV HEART COAGDaniel Dibardino Work Phone: Start: 11-76-7256Knr routine ecg w/least 12 lds i&r onlyDaniel Dibardino Work Phone: Start: 75-40-5934KVG REPORTHpf ScanningStart: 37-37-8892Blojwyxp alejandro-hughes eb virus nuclear ag ebnaDANIEL DIBARDINOStart: 72-17-4211Pribd count complete automatedDANIEL DIBARDINOStart: 07-03-2019 Reticulated platelet assayDANIEL DIBARDINOStart: 12-93-2112TU GAS,MIX-RUFINO,EXT Caro Dibardino Work Phone: Start: 12-85-2879Ccbjo of lactateDaniel Dibardino Work Phone: Start: 32-16-7561Fpeio of magnesiumDaniel Dibardino Work Phone: Start: 83-11-0639Umvut metabolic panel calcium total Caro Dibardino Work Phone: Start: 05-93-3067Gxbbe count complete auto&auto difrntl wbcDaniel Dibardino Work Phone: Start: 57-04-4471Qewyzuc ionizedDaniel Dibardino Work Phone: Start: 92-86-1750Oggllnssot activityDaniel Dibardino Work Phone: Start: 87-82-8765Gzpjlqw function panelDaniel Dibardino Work Phone: Start: 38-78-9176Wvmyputqorn timeDaniel Dibardino Work Phone: Start: 98-57-0668VDWMKDYQF FRESH FROZEN PLASMADominguez Plummer Work Phone: Start: 07-85-0023FJJGP GAP (CALC) POCDaniel Dibardino Work Phone: Start: 88-53-2230XTFCJQSL BLOOD GAS, POCDaniel Dibardino Work Phone: Start: 99-76-8837Xgedj count hemoglobinDaniel Dibardino Work Phone: Start: 03-40-4413PQXNIOJ, IONIC (POC)Caro Dibardino Work Phone: Start: 00-27-2915Cdiknuzr [Moles/Vol]Caro Dibardino Work Phone: Start: 80-69-6870MGARLTRTNJ W/GFR POINT OF CAREDaniel Dibardino Work Phone: Start: 11-37-1630Psnw bld gluc mntr dev cleared fda spec home useDaniel Dibardino Work Phone: Start: 85-31-8144WTTAMY ACID,POINT OF CAREDaniel Dibardino Work Phone: Start: 11-78-7974Phrzfjyxw [Moles/Vol]Caro Dibardino Work Phone: Start: 24-85-9095Raqmga [Moles/Vol]Caro Dibardino Work Phone: Start: 62-29-3581SPW KAOLIN TEGDANIEL DIBARDINOStart: 19-67-8591OOV KAOLIN TEG WITH HEPARINDANIEL DIBARDINOStart: 52-38-2142Cpk routine ecg w/least 12 lds i&r onlyDaniel Dibardino Work Phone: Start: 51-26-2899KIZ REPORTHpf ScanningStart: 27-52-6577WBEPN GAP (CALC) POCDANIEL DIBARDINOStart: 75-81-5822WPNJPDME BLOOD GAS, POCDANIEL DIBARDINOStart: 02-66-8817Wpjzixdz other sourceDANIEL DIBARDINO Start: 17-53-9703DQTYHWSTUY W/GFR POINT OF CAREDANIEL DIBARDINOStart: 07-03-2019 LACTIC ACID,POINT OF CAREDANIEL DIBARDINOStart: 92-92-8745Ctavlzevi serum plasma/whole bloodDANIEL DIBARDINOStart: 13-07-5416Yjmupl serum plasma or whole bloodDANIEL DIBARDINOStart: 27-00-3744Nisxpuaqhm exam chest single viewDANIEL DIBARDINOStart: 41-80-8827KXHNCNURH PLATELETSDaniel Dibardino Work Phone: Start: 07-03-2019 End: 73-40-2274Drjtuni blood reagent stripDaniel Dibardino Work Phone: Start: 40-52-5217Rvbag iv surg pathology gross&microscopic examDANIEL DIBARDINOStart: 07-03-2019 End: 13-65-6533SFUWKRC FRESH FROZEN PLASMADaniel Dibardino Work Phone: Start: 75-99-1001NKJAFVM PLATELETSDaniel Dibardino Work Phone: Start: 94-57-4148Savxg count hemoglobinDANIEL DIBARDINOStart: 08-16-1448Xjtq bld gluc mntr dev cleared fda spec home useDANIEL DIBARDINOStart: 03-92-4777Wolhl of magnesiumDaniel Dibardino Work Phone: Start: 43-70-2728Wxqgo metabolic panel calcium total Caro Dibardino Work Phone: Start: 23-29-6126Vkclv count complete automatedDaniel Dibardino Work Phone: Start: 74-52-5651Iijphgf ionizedDaniel Dibardino Work Phone: Start: 74-47-2328DPBSUSPF PLATELET FRACTIONDaniel Dibardino Work Phone: Start: 32-82-7874NMWU HEART COAGDaniel Dibardino Work Phone: Start: 34-22-2100HNMGP GAP (CALC) POCDANIEL DIBARDINO Start: 13-62-3184EORPZWSL BLOOD GAS, POCDANIEL DIBARDINOStart: 07-03-2019 Chloride other sourceDANIEL DIBARDINOStart: 79-14-2609TCFJPNKFWR W/GFR POINT OF CAREDANIEL DIBARDINOStart: 30-21-6443AADCNK ACID,POINT OF CAREDANIEL DIBARDINO Start: 53-40-1864Wfnsgjchi serum plasma/whole bloodDANIEL DIBARDINOStart: 18-20-5054Zswjrt serum plasma or whole bloodDANIEL DIBARDINOStart: 07-03-2019 End: 58-73-4893WIX KAOLIN TEGDaniel Dibardino Work Phone: Start: 07-03-2019 End: 27-87-3223FSA KAOLIN TEG WITH HEPARINDaniel Dibardino Work Phone: Start: 51-62-4779Mvsvahgarvw blood/blood components CARO DIBARDINOStart: 07-03-2019 End: 08-21-9903QECOH GAP (CALC) POCDaniel Dibardino Work Phone: Start: 07-03-2019 End: 25-32-6843KUDFJERC BLOOD GAS, POCDaniel Dibardino Work Phone: Start: 07-03-2019 End: 23-22-2825Tzjbj count hemoglobinDaniel Dibardino Work Phone: Start: 07-03-2019 End: 47-23-7146ISXINAL, IONIC (POC)Caro Dibardino Work Phone: Start: 07-03-2019 End: 28-92-6177Bfdduxlp [Moles/Vol]Caro Dibardino Work Phone: Start: 07-03-2019 End: 17-59-2241AXANWXPCQR W/GFR POINT OF CAREDaniel Dibardino Work Phone: Start: 07-03-2019 End: 10-74-9065Zbtl bld gluc mntr dev cleared fda spec home useDrigoberto Lockeardino Work Phone: Start: 07-03-2019 End: 46-67-4216XNCFPN ACID,POINT OF CARECaro Lockeardino Work Phone: Start: 07-03-2019 End: 50-66-6281Wzgvxhyjk [Moles/Vol]Caro Teresa Work Phone: Start: 07-03-2019 End: 70-46-5316Kmsqvr [Moles/Vol]Caro Teresa Work Phone: Start: 47-82-1184Bmocmwtoij exam chest single view Caro Teresa Work Phone: Start: 96-19-8230Rwk routine ecg w/least 12 lds w/i&r CARO NILSNOStart: 22-71-4045MDH REPORTDANIEL DIBARDINOStart: 07-03-2019 TRANSFUSE RED BLOOD CELLSDANIANGELICA DIBARDINOStart: 88-01-6151VXOHULQ RBC (CROSSMATCH)CARO NILSNOStart: 02-85-1233ZZVIGBANEVC REACTION MANAGEMENT CARO WRAYNOStart: 09-16-6859NONXLU INFORMED CONSENTDANIEL DIBARDINOStart: 73-57-1621Gtmii of magnesiumDANIEL DIBARDINOStart: 21-65-3202Rayhz metabolic panel calcium totalDANIEL DIBARDINOStart: 18-19-2785Uakyf count platelet automatedDANIEL DIBARDINOStart: 14-25-3985Efbptqdyep activityDANIEL DIBARDINO Start: 44-89-2894Jhjzdykrllq timeDANIEL DIBARDINOStart: 20-23-8529Jlnnbhwwnuiddc time partial plasma/whole bloodDANIEL DIBARDINOStart: 38-72-7865KNSFJ GAP (CALC) POCDANIEL DIBARDINOStart: 89-71-9416XJHLRVIT BLOOD GAS, POCDANIEL DIBARDINOStart: 39-14-0695Yshwmkd ionizedDANIEL DIBARDINOStart: 07-03-2019 Chloride other sourceDANIEL DIBARDINOStart: 30-46-1652Cggiteqti serum plasma/whole bloodDANIEL DIBARDINOStart: 89-55-7819Cqmeio serum plasma or whole bloodDANIEL DIBARDINOStart: 07-03-2019 End: 74-40-0259ATNYSQDSU RED BLOOD CELLSDaniel Dibardino Work Phone: Start: 07-03-2019 End: 26-65-1744SPIRI GAP (CALC) POCDaniel Dibardino Work Phone: Start: 07-03-2019 End: 72-21-5464PCDNXQZB BLOOD GAS, POCDaniel Dibardino Work Phone: Start: 07-03-2019 End: 70-75-1069[place] count hemoglobinDaniel Dibardino Work Phone: Start: 07-03-2019 End: 61-58-4233HLFWECS, IONIC (POC)Caro Dibardino Work Phone: Start: 07-03-2019 End: 10-43-4518Cezsvcvm [Moles/Vol]Caro Dibardino Work Phone: Start: 07-03-2019 End: 50-13-6166XZYPWCBXFE W/GFR POINT OF CAREDaniel Dibardino Work Phone: Start: 07-03-2019 End: 26-01-1649Zzfu bld gluc mntr dev cleared fda spec home useDaniel Dibardino Work Phone: Start: 07-03-2019 End: 17-17-8285SBQJXN ACID,POINT OF CAREDaniel Dibardino Work Phone: Start: 07-03-2019 End: 48-82-1318Czjhruryv [Moles/Vol]Caro Dibardino Work Phone: Start: 07-03-2019 End: 79-41-5744Ztrgfo [Moles/Vol]Caro Dibardino Work Phone: Start: 33-03-1720Xoyxt gases any combination ph pco2 po2 co2 ycp4DHZHZY DIBARDINOStart: 16-29-8656INY HEMODYNAMIC GOALSDANIEL DIBARDINOStart: 04-23-1604HU CONSULT TO CARDIAC REHABDANIEL DIBARDINOStart: 28-66-3567LY CONSULT TO CASE MANAGEMENTDANIEL DIBARDINOStart: 35-17-3434ZH CONSULT TO DIETITIANDADANIEL DIBARDINOStart: 38-45-1252PM CONSULT TO SPIRITUAL SERVICESDANIEL DIBARDINOStart: 77-65-2306NWHEN INTERMITTENT PNEUMATIC COMPRESSION DEVICEDANIEL DIBARDINOStart: 12-21-7836UFBWIE AND REPLACE ANGELY HOSE DAILYDANIANGELICA DIBARDINOStart: 05-76-8192QBSNUBTKA DEEP BREATHING AND COUGHING CARO LOCKEARDINOStart: 67-97-7427DF CONSULT TO CARDIOLOGYDAEL DIBARDINOStart: 31-69-3859NZ EVAL AND TREATDANIEL DIBARDINOStart: 98-25-8708XX EVAL AND TREAT CARO LOCKEARDINOStart: 13-42-8826ANDXH WARMING BLANKETDANIEL DIBARDINOStart: 39-64-1268YUQDDOI STERNAL PRECAUTIONDANIEL DIBARDINOStart: 81-80-5277FIAAGKD HOB CARO DIBARDINOStart: 72-19-6635KFESVHSP OXYGEN THERAPY PROTOCOLDANIEL DIBARDINOStart: 62-12-1668JITDXJFXQGQ TUBE MAINTENANCEDANIEL DIBARDINOStart: 53-52-6290BOYVNVS COMMUNICATIONDANIEL DIBARDINOStart: 57-67-5463QAGUN CAREDANIEL DIBARDINOStart: 57-47-4755RFAG CODEDANIEL DIBARDINOStart: 79-22-9035TWEOIK AND OUTPUTDANIEL DIBARDINOStart: 96-11-4997DVOMDMWPGRFBG NURSING CARE ORDER (SPECIFY)CARO LOCKEARDINOStart: 80-28-0429LCUJBR PHYSICIAN (SPECIFY)CARO LOCKEARDINOStart: 75-84-8022TXCNYSOFK MONITORINGDANIEL DIBARDINOStart: 07-03-2019 UP IN CHAIRDANIEL DIBARDINOStart: 40-73-1838OJD KAOLIN TEGDANIEL DIBARDINOStart: 33-97-3639EXE KAOLIN TEG WITH HEPARINDANIEL DIBARDINOStart: 81-22-0249LRXXQRWT BLOOD GAS, POCDANIEL DIBARDINOStart: 74-80-3795Pktimz serum plasma or whole bloodDANIEL DIBARDINOStart: 32-81-4541Ori routine ecg w/least 12 lds i&r only Vasiliy Bethea Work Phone: Start: 42-43-4718BOV REPORTHpf ScanningStart: 07-03-2019 End: 69-18-9462OZRL CORONARY ARTERY BYPASS AORTIC AND MITRAL VALVE REP REDO Caro Dibardino Work Phone: Start: 07-03-2019 End: 86-13-7489TCBRXFZOX RED BLOOD CELLSDaniel Dibardino Work Phone: Start: 53-32-5182OAJQXTYPG RED BLOOD CELLSDANIEL DIBARDINOStart: 81-97-7271Kejql of magnesiumNicholas A Bethea Work Phone: Start: 60-66-4065Jytzr metabolic panel calcium total Dominguez M Elian Work Phone: Start: 38-59-5392Rnwqj count platelet automated Vasiliy Bethea Work Phone: Start: 82-64-8560Mjiwfql ionizedDaniel Dibardino Work Phone: Start: 72-38-6362Jpiqmjyraz activityNicholas A Bethea Work Phone: Start: 79-93-8728Miuwcupxxua timeAdam Satnam Elian Work Phone: Start: 79-88-2272Xivtadpbliuihf time partial plasma/whole bloodNicholas A Bethea Work Phone: Start: 04-86-3893QRQND GAP (CALC) POCDaniel Dibardino Work Phone: Start: 22-19-0718LXAHAXOR BLOOD GAS, POCDaniel Dibardino Work Phone: Start: 68-18-2744Mrcsz count hemoglobinDaniel Dibardino Work Phone: Start: 89-21-6005VXGIANL, IONIC (POC)Caro Dibardino Work Phone: Start: 80-69-8801Wvgwuhec [Moles/Vol]Caro Lockeardino Work Phone: Start: 79-06-3811Rmwr bld gluc mntr dev cleared fda spec home useDrigoberto Lockeardino Work Phone: Start: 68-69-1483Cncerqvnn [Moles/Vol]Caro Dibardino Work Phone: Start: 49-56-6034Vtaakc [Moles/Vol]Caro Dibardino Work Phone: Start: 39-18-1251GDBMFGC RBC (CROSSMATCH)CARO WRAYNOStart: 50-66-9547Oucfkycpyg exam chest single viewNicholas A Bethea Work Phone: Start: 88-37-4093Hffcbazno serum plasma/whole blood CARO WRAYNOStart: 43-25-3906Jixgo iv surg pathology gross&microscopic exam CARO WRAYNOStart: 39-69-2668QYH KAOLIN TEGDaniel Dibardino Work Phone: Start: 72-59-0629OCA KAOLIN TEG WITH HEPARINDaniel Dibardino Work Phone: Start: 57-01-7080YBOGPXEX BLOOD GAS, POCDANIEL DIBARDINOStart: 58-41-4659Qhpykzz ionizedDANIEL DIBARDINOStart: 07-03-2019 Potassium serum plasma/whole bloodDANIEL DIBARDINOStart: 25-83-9831Xrbiui serum plasma or whole bloodDANIEL DIBARDINOStart: 18-78-3827FEIEAED RBC (CROSSMATCH) CARO WRAYNOStart: 65-55-3292USJBUVYYK RED BLOOD CELLSDaniel Dibardino Work Phone: Start: 07-03-2019 End: 09-01-6826TJUAOZCL BLOOD GAS, POCDaniel Dibardino Work Phone: Start: 07-03-2019 End: 22-42-2461Cbbxp count hemoglobinDaniel Dibardino Work Phone: Start: 07-03-2019 End: 92-28-3709WAHJTYQ, IONIC (POC)Caro Dibardino Work Phone: Start: 07-03-2019 End: 76-62-4415Wkcf bld gluc mntr dev cleared fda spec home useDaniel Dibardino Work Phone: Start: 07-03-2019 End: 68-57-4766Icxbgaqdy [Moles/Vol]Caro Dibardino Work Phone: Start: 07-03-2019 End: 43-21-6606Pbmcon [Moles/Vol]Caro Dibardino Work Phone: Start: 89-15-8804BEVMWBSIB RED BLOOD CELLSDANIEL DIBARDINOStart: 76-53-7331JHAKOZWT BLOOD GAS, POCDANIEL DIBARDINOStart: 32-32-0954Gdndvna ionizedDANIEL DIBARDINOStart: 26-59-8822Wxoheixia serum plasma/whole bloodDANIEL DIBARDINOStart: 40-36-3468Dsttqw serum plasma or whole bloodDANIEL DIBARDINOStart: 07-03-2019 End: 30-03-5247OGTMSUSW BLOOD GAS, POCDaniel Dibardino Work Phone: Start: 07-03-2019 End: 50-40-1527Pfehl count hemoglobinDaniel Dibardino Work Phone: Start: 07-03-2019 End: 67-73-7707SBFECON, IONIC (POC)Caro Dibardino Work Phone: Start: 07-03-2019 End: 14-14-4297Cbqk bld gluc mntr dev cleared fda spec home useDaniel Dibardino Work Phone: Start: 07-03-2019 End: 83-33-9679Dnlvzjvhr [Moles/Vol]Caro Dibardino Work Phone: Start: 07-03-2019 End: 07-32-5273Iksdmg [Moles/Vol]Caro Lockeardino Work Phone: Start: 13-70-5801MOYWN VENOUS GAS, POINT OF CAREDANIEL DIBARDINOStart: 89-97-4087Xtwwete bacterial quanttative colony count urine CARO LOCKEARDINOStart: 19-18-6071IHB KAOLIN TEGDANIEL DIBARDINOStart: 07-03-2019 POC KAOLIN TEG WITH HEPARINDANIEL DIBARDINOStart: 61-05-0892DPOBBAMK BLOOD GAS, POCDANIEL DIBARDINOStart: 94-04-5439Isknhew ionizedDANIEL DIBARDINOStart: 75-57-5628Ybuoliolk serum plasma/whole bloodDANIEL DIBARDINOStart: 07-03-2019 Sodium serum plasma or whole bloodDANIEL DIBARDINOStart: 07-03-2019 End: 49-95-8372UUTWYENZA RED BLOOD CELLSDaniel Dibardino Work Phone: Start: 30-89-9127Oymewebkrxr blood/blood components CARO LOCKEARDINOStart: 07-03-2019 End: 90-81-4958PRVARMFD BLOOD GAS, POCDaniel Dibardino Work Phone: Start: 07-03-2019 End: 43-99-8558Jiasc count hemoglobinDaniel Dibardino Work Phone: Start: 07-03-2019 End: 24-13-5935MGHZYSK, IONIC (POC)Caro Dibardino Work Phone: Start: 07-03-2019 End: 76-77-1304Qjpi bld gluc mntr dev cleared fda spec home useDaniel Dibardino Work Phone: Start: 07-03-2019 End: 31-62-0109Bpzsoogyz [Moles/Vol]Caro Dibardino Work Phone: Start: 77-07-9827Mxbdzd [Moles/Vol]Caro Dibardino Work Phone: Start: 46-62-5146UXDOY VENOUS GAS, POINT OF CAREDaniel Dibardino Work Phone: Start: 17-93-8240Oeneole bacterial quanttative colony count urineDaniel Dibardino Work Phone: Start: 11-23-3408SDJ KAOLIN TEGDaniel Dibardino Work Phone: Start: 14-94-9310HVG KAOLIN TEG WITH HEPARINDaniel Dibardino Work Phone: Start: 53-79-8769CPRRTLNI BLOOD GAS, POCDaniel Dibardino Work Phone: Start: 07-03-2019 End: 93-90-7289Iykva count hemoglobinDaniel Dibardino Work Phone: Start: 17-02-0409BWMHBVS, IONIC (POC)Caro Dibardino Work Phone: Start: 07-03-2019 End: 51-84-5802Togo bld gluc mntr dev cleared fda spec home useDaniel Dibardino Work Phone: Start: 09-01-4129Tyobtkaui [Moles/Vol]Caro Dibardino Work Phone: Start: 34-46-8891Wfagxz [Moles/Vol]Caro Lockeardino Work Phone: Start: 16-08-7490Yvyqi iv surg pathology gross&microscopic examDANIEL DIBARDINOStart: 94-97-4088DVSMOJH STATUS (DIRECT) CARO LOCKETDNOStart: 07-03-2019 End: 81-35-2560Utcrjllk artery byp w/vein & artery graft 2 veinDaniel Dibardino Work Phone: Start: 81-32-0215Ttfey iv surg pathology gross&microscopic examDaniel Dibardino Work Phone: Start: 18-64-8032ZJYYEBT RBC (CROSSMATCH)CARO LOCKEARDINOStart: 73-41-8465Reog transesophag r-t 2d w/prb img acquisj i&rDANIEL DIBARDINOStart: 10-69-3823DTQNB SIGNSDANIEL DIBARDINOStart: 09-88-4278Rb thorax w/o contrast materialNicholmeeta Sanabria [employer] Work Phone: Start: 91-56-1769Dddjif scan extracranial art compl bi studyVasiliy Sanabria [employer] Work Phone: Start: 90-31-6750NFX DRAWDANIEL DIBARDINOStart: 93-15-6165MKL DRAWDANIEL DIBARDINOStart: 95-65-4931Lvk-scan xtr veins complete bilateral studyDANIEL DIBARDINOStart: 36-30-1738Bsji tthrc r-t 2d w/wom-mode compl spec&colr dDANIEL DIBARDINOStart: 24-85-7895Bnl-scan xtr veins unilateral/limited studyNicaguilar Sanabria [employer] Work Phone: Start: 38-11-2943ENY DRAWDANIEL DIBARDINOStart: 51-85-3376WQB DRAWDANIEL DIBARDINOStart: 03-59-9767Dkzpmxvd screenStvz 1Start: 08-48-3428Dsvbfat bacterial quanttative colony count urineDANIEL DIBARDINOStart: 60-85-5242Psrdfdfmkk microscopic onlyDANIEL DIBARDINOStart: 16-80-4377Xqgrz dip stick/tablet rgnt auto w/o microscopyDANIEL DIBARDINOStart: 06-25-2019 Radiologic exam chest 2 viewsDANIEL DIBARDINOStart: 96-85-9888Rbumt count complete auto&auto difrntl wbcDANIEL DIBARDINOStart: 61-66-8791Vgqowarlasqxa metabolic panelDANIEL DIBARDINOStart: 13-94-3069Cfjbkdhtqq glycosylated a1c CARO DIBARDINOStart: 89-20-4897Vqawrkel aggregation in vitro each agentDANIEL DIBARDINOStart: 33-47-2782Pyooeylxncq timeDANIEL DIBARDINOStart: 06-25-2019 Thromboplastin time partial plasma/whole bloodDANIEL DIBARDINOStart: 06-25-2019 TYPE AND SCREENDANIEL DIBARDINOStart: 72-89-0243XCDNDNHF BLOOD GAS, POCDANIEL DIBARDINOStart: 87-71-1654Bjf routine ecg w/least 12 lds w/i&rDANIEL DIBARDINO Start: 09-73-5316BZQ REPORTDANIEL DIBARDINOStart: 33-78-6590SYW DRAWDANIEL DIBARDINOStart: 80-64-5553Qlaicpu bacterial quanttative colony count urineDaniel Dibardino Work Phone: Start: 90-49-2429Wicehdciqo microscopic onlyDaniel Dibardino Work Phone: Start: 03-66-3797Dbbsh dip stick/tablet rgnt auto w/o microscopyDaniel Dibardino Work Phone: Start: 23-31-0776Mlqduovudn exam chest 2 viewsDaniel Dibardino Work Phone: Start: 57-85-3803Cnfbb count complete auto&auto difrntl wbcDaniel Dibardino Work Phone: Start: 13-97-3074Hvcrs typing serologic aboDaniel Dibardino Work Phone: Start: 98-66-1434Uinmwguliqbce metabolic panelDaniel Dibardino Work Phone: Start: 84-53-7665Ywrpmjmtoe glycosylated n8qYvqlkb Dibardino Work Phone: Start: 63-48-0817Izgddroe aggregation in vitro each agentDaniel Dibardino Work Phone: Start: 02-23-8512Zbzfhptxydt timeDaniel Dibardino Work Phone: Start: 56-83-1954Clvxeltgqsigrc time partial plasma/whole bloodDaniel Dibardino Work Phone: Start: 72-60-0177Qkeux s aureus methicillin resist amp probe tqDaniel Dibardino Work Phone: Start: 72-88-3993RLTPWKSC BLOOD GAS, POCDaniel Dibardino Work Phone: Start: 63-35-9831Gkk routine ecg w/least 12 lds i&r onlyDaniel Dibardino Work Phone: Start: 71-02-3515FSQ REPORTHpf ScanningStart: 95-45-0815Nhuamrl catheterizationTasia Irizarry Work Phone: Start: 19-88-6481Lghbpaf [Mass/volume] in BloodTasia Irizarry Work Phone: Start: 80-92-7152Dknepuhnha exam chest 2 viewsEdshivam Hernandez MD Other Phone: Start: 05-10-2019 End: 28-81-5835Rhxzasycjljwp metabolic panelGrayson Hernandez MD Other Phone: Start: 50-15-6960Jgeem panelGrayson Hernandez MD Other Phone: Start: 14-79-8519WLKXFQH FASTING?Grayson Hernandez MD Other Phone: Start: 04-18-2019 End: 38-09-0118Cjxdqdemqzhl ophthalmic imaging retinaPhilip Stefano Chang MDStart: 04-19-2018 End: 42-18-3938Udrrpbborybb ophthalmic imaging retinaPhilip Stefano Chang MDStart: 01-19-2017 End: 45-69-5136Qzhmsxzwrynq ophthalmic imaging retinaPhilip Stefano Chang MDStart: 11-03-2015 End: 21-65-1644Fcsnjnndsveh ophthalmic imaging retinaPhilip Stefano MDStart: 11-04-2014 End: 67-62-8165Kxjze medical xm&eval comprhnsv estab pt 1/>Dm Agarwal Jr, MD Start: 10-29-2013 End: 34-26-7583Rhqze medical xm&eval comprhnsv estab pt 1/>Dm Agarwal Jr, MD Start: 10-20-2012 End: 81-72-8932Bxyyd medical xm&eval comprhnsv estab pt 1/>Dm Agarwal Jr, MD Start: 10-20-2012 End: 20-62-8571VffoxsdoOfrpwu Nelsen Jr MDStart: 04-26-2011 End: 62-93-4380Csjfj medical xm&eval comprhnsv estab pt 1/>Dm Agarwal Jr, MD Plan of Treatment DateCare ActivityDetailAuthorStart: 99-87-7744Oazfozedl for malignant neoplasm of colonNOIN HealthcareStart: 11-05-2025 End: 30-27-5810Bnrcwiy encounter procedureNOMS SWS DERMStart: 98-01-3805Kppohrqu screeningDiabetes: Retinopathy ScreeningNOMS HealthcareStart: 05-30-2025 End: 33-73-2975Yyfluqj encounter pyajbjqsv62/08/2026 11:00 AM EST [facility] Visit [facility] [address] [place] [phone] Anshul Irizarry MD [address] [place] [address] 6 month f/u lab/ekgMercy Cardiology SpecialistComment on above:6 month f/u lab/ekgStart: 74-08-7110Dihci screening for proteinDiabetes: Urine Protein ScreeningNOIN HealthcareStart: 03-11-2025 Bacteria identified in Urine by CultureUrine [facility] Hospitaltart: 48-17-9905Bgdru [facility] Campustart: 03-05-2025 End: 73-39-6296Wnrhzgk encounter procedureNOIN Alexis 100 Family MedicineComment on above:Primary hypertension; Mixed hyperlipidemia; Hypokalemia; Hypomagnesemia; Type 2 diabetes mellitus with hyperglycemia, without long-term current use of insulin (HCC); Stage 3 chronic kidney disease due to type 2 diabetes mellitus (HCC); Microalbuminuria; Polypharmacy; Paroxysmal atrial fibrillation (HCC)Start: 02-28-2025 End: 82-37-1158Cmknrnt encounter ykbneeopj32/09/2025 2:30 PM EDT Office Visit [facility] [address] [place] [address] Grayson Hernandez MD [address] [facility] [address] [place] [address] (Fax)[facility] CI FM 100Start: 02-19-2025 End: 41-69-2230Wfdkxbx encounter cvvausduv03/30/2025 2:00 PM EDT Office Visit [facility] [address] [place] [address] Grayson Hernandez MD [address] [facility] [address] [place] [address] (Fax)[facility] CI FM 100Start: 33-78-2853BWNET-19 Vaccine ( season)COVID-19 Vaccine ()[facility] Start: 01-20-2025 End: 39-95-3841Rlopqghcatnjt metabolic 2000 panel - Serum or PlasmaComprehensive metabolic panel Lab Routine Primary hypertension ([facility]) Hypokalemia Type 2 diabetes mellitus with stage 4 chronic kidney disease, without long-term current use of insulin ([facility]) Expected: 01/20/2025, Expires: 08/20/2025NOIN Healthcare Work Phone: Comment on above:Expected: 01/20/2025, Expires: 08/20/2025Start: 01-20-2025 End: 29-21-8995Lcjdfkrkqt A1c/Hemoglobin.total in BloodHemoglobin A1c Lab Routine Type 2 diabetes mellitus with hyperglycemia, without long-term current use of insulin ([facility]) Expected: 01/20/2025, Expires: 08/20/2025[facility] HealthcareComment on above:Expected: 01/20/2025, Expires: 08/20/2025Start: 01-20-2025 End: 84-51-7725Khtmp 1996 panel - Serum or PlasmaLipid panel Lab Routine Mixed hyperlipidemia ([facility]) Expected: 01/20/2025, Expires: 08/20/2025[facility] HealthcareComment on above:Expected: 01/20/2025, Expires: 08/20/2025Start: 91-07-1923Mvxalnrbb vaccinationFlu vaccine (Season Ended)Vannesa Lora [facility] CenterStart: 11-15-2024 End: 58-54-7894Swtvabm encounter asvxkdwmw56/26/2025 1:30 PM EDT Office Visit [facility] [employer] [address] [place] [address] Anshul Irizarry MD [address] [place] [phone] mnth f/u echo/lab/ekg priorMercy Cardiology SpecialistComment on above:6 mnth f/u echo/lab/ekg priorStart: 11-05-2024 End: 09-69-5620Xtxoffz encounter procedureNOMS SWS DERMComment on above:Arrived Start: 10-05-2024 End: 71-86-8898gixywnjakh40/16/2025 2:00 PM EDT Treatment [facility] PT [address] [place] [address] Neno Odonnell PTANOMS CI PTStart: 10-02-2024 End: 43-81-3700svrzijwodf66/13/2025 2:00 PM EDT Treatment [facility] [address] [place] [address] Neno Odonnell PTANOMS CI PTStart: 09-28-2024 End: 61-56-1156vcpmmiokop49/09/2025 1:00 PM EDT Treatment [facility] PT [address] [place] [address] Neno Odonnell PTANOMS CI PTStart: 09-05-2024 End: 95-81-2257Ggtnmrx encounter yagrwrmhx30/16/2025 2:30 PM EDT Office Visit [facility] [address] [place] [address] Grayson Hernandez MD [address] [place] [address] (Fax)[facility] CI FM 100Start: 08-20-2024 End: 93-33-3776Dmpcvfd encounter lajcntizq70/31/2025 3:00 PM EDT Office Visit [facility] [address] [place] [address] Grayson Hernandez MD [address] [place] [address] (Fax) Primary hypertension ([facility]CC); Mixed hyperlipidemia ([facility]) ; Hypokalemia;Stage 3 chronic kidney disease due to type 2 diabetes mellitus (HCC) ([facility]); Type 2 diabetes mellitus with hyperglycemia, without long-term current use of insulin ([facility]); Hypomagnesemia; PolypharmacyNOMS CI FM 100Comment on above:Primary hypertension ([facility]); Mixed hyperlipidemia ([facility]) ; Hypokalemia; Stage 3 chronic kidney disease due to type 2 diabetes mellitus (HCC) ([facility]); Type 2 diabetes mellitus with hyperglycemia, without long-term current use of insulin ([facility]); Hypomagnesemia; PolypharmacyStart: 07-30-2024 End: 22-64-3639Zjayfio encounter pumnfzywx41/10/2025 2:30 PM EDT Office Visit [facility] 100 [address] [facility] [address] [place] [address] Grayson Hernandez MD [address] [facility] 100 [place] [address] ArrivedNOMS CI FM 100Comment on above: ArrivedStart: 47-52-3753Zkaffoca screeningDiabetes: Retinopathy ScreeningNOMS HealthcareStart: 29-06-3385Hylbsgihq for malignant neoplasm of breastMammogram NOMS HealthcareComment on above:Postponed from 05/26/2022 (Other Medical Reasons)Start: 14-41-2302Hlldvsfo screeningDiabetes: Retinopathy ScreeningNOMS HealthcareStart: 05-24-2024 End: 52-85-4680Jxqssek encounter procedureNOMS CI FM 100Comment on above:Arrived Start: 57-13-9757Yvoffl Wellness Visit (Medicare Advantage)Annual Wellness Visit (Medicare Advantage)[facility] HospitalStart: 62-49-5932Gyyjjovxteow Vaccine: 65+ Years (2 - PPSV23 or PCV20)Pneumococcal Vaccine: 65+ Years (2 - PPSV23 or PCV20)NOMS HealthcareComment on above:Postponed from 02/14/2017 (Other Patient Reasons)Start: 18-83-1182Llmkcvqiiqep Vaccine: 65+ Years (2 of 2 - PPSV23 or PCV20)Pneumococcal Vaccine: 65+ Years (2 of 2 - PPSV23 or PCV20)NOMS HealthcareComment on above:Postponed from 02/14/2017 (Other Patient Reasons) Start: 01-10-4633Mguaw screenLipid screenMercy Health Work Phone: start: 28-37-2795Miicw cultureRegency Hospital Companytart: 94-38-1709Osxpgjda identified in Urine by CultureUrine CultureRegency Hospital Companytart: 98-40-4294LjhsffndeRegency Hospital Companytart: 85-11-3635Jxgdf screening for proteinDiabetes: Urine Protein ScreeningNOIN HealthcareStart: 02-21-2024 End: 57-17-1993Tejmjrd encounter dsogunabt45/01/2024 3:30 PM EDT Office Visit [facility] [address] [address] Grayson Hernandez MD [address] [place] [address] (Fax)[facility] CI FM 100Start: 02-02-2024 End: 08-44-4456Juphydt encounter cipiwzgmn87/12/2024 2:00 PM EDT Office Visit [facility] [address] [address] Grayson Hernandez MD [address] [place] [phone] (Work) (Fax)[facility] CI FM 100Start: 51-07-0280BOQDO-19 Vaccine ( season)COVID-19 Vaccine ( season)[facility] Start: 05-75-5786Urrzl BMI ScreeningAdult BMI ScreeningRegency Hospital Company System Start: 66-08-1638Sbur Risk ScreeningFall Risk ScreeningAvita Health System [facility] Start: 99-36-9229Umhojpi ScreeningTobacco ScreeningProOhioHealth Pickerington Methodist Hospitaltart: 54-44-0145Mcjxpwtaj vaccinationFlu vaccine (Season Ended)[facility]ITALStart: 80-10-7881Hnoxwtbnfip Syncytial Virus (RSV) or age 60 yrs+ (1 - 1-dose 75+ series)Respiratory Syncytial Virus (RSV) or age 60 yrs+ (1 - 1-dose 75+ series)[facility] HospitalStart: 56-84-9087Rwfww panel LipidsBON SCCI HOSPITAL LIMAStart: 11-08-2023 End: 09-75-0696Otdzkho encounter procedureWayne Hospital Cardiology SpecialistComment on above:6 month f/u with echo (to be done in [place]) and routine testingDr Juan C said we could move appt out since stress was good, howeverStart: 11-03-2023 End: 53-64-4805Qxsmkbm encounter dzcmnbxiv18/13/2024 2:35 PM EDT Office Visit [facility] JENNI DERM [address] [facility] [address] [place] [phone] Jorge Luis Gasca MD [address] [facility] [address] [place] [address] [facility] JENNI DERMStart: 09-19-2023 End: 65-00-3272Gfkazbi encounter buevsmyua95/29/2024 10:30 AM EDT Office Visit [facility] [employer] Operator [address] [place] [phone] Anshul Irizarry MD [address] [place] [address] 4 week follow up TEEWayne Hospital Cardiology SpecialistComment on above:4 week follow up TEEStart: 04-24-2024Medicare Annual Wellness (AWV)Medicare Annual Wellness (AWV)NOMS HealthcareStart: 08-19-2023 Shingles vaccine (2 of 2)Shingles vaccine (2 of 2)[facility] LIMAStart: 08-08-2023 End: 73-15-0102Ltuvxne encounter nfrokhcuw79/18/2024 2:30 PM EDT Office Visit [facility] [address] [place] [address] Grayson Hernandez MD [address] [place] [address] (Fax)DYLAN ROGERS FMStart: 46-56-3568Wuvrido cessation education Tobacco cessation counselingCVP PhysiciansStart: 07-05-2023 End: 68-43-3443Wjkzjhx encounter ryljjyndr79/13/2024 3:00 PM EST Office Visit [facility] [address] [place] [phone] Walker Monroy MD [address] [place] [address], [address], [address], [address] [place] [address] [facility] NeurologyStart: 54-05-7670Ceboruyvuf A1c measurementDiabetes: Hemoglobin R3YZUSURipley County Memorial Hospital Start: 50-31-4810Xwdzdnznt for malignant neoplasm of breastBreast cancer screen [facility]-WELLESLEY HOSPITALAvraham PharmaceuticalsHOLZER MEDICAL CENTER – JACKSONStart: 00-88-6801Mtjblz Wellness Visit (Medicare Advantage)Annual Wellness Visit (Medicare Advantage)[facility] HOSPITALConvergent Radiotherapy Start: 99-10-2557QYENJ-19 Vaccine ( season)COVID-19 Vaccine ( season)[facility] SystemStart: 03-34-7396BYYFE-19 Vaccine ( season)COVID-19 Vaccine ()[facility]-WELLESLEY HOSPITALInspro [facility] Start: 95-22-8293Gwqszqcnz vaccinationInfluenza VaccineRegency Hospital Company System Start: 85-12-3070Hqgmfywyhz ScreeningDepression ScreeningRegency Hospital Company System Start: 31-52-8916Bkwrfwghs for malignant neoplasm of colonMercy HealthStart: 06-45-7350Pdlhlww cessation educationTobacco cessation counselingCVP Physicians Start: 10-21-2021 End: 36-03-3312Wrpfpnq encounter paxpiwamw14/01/2022 Office Visit Cardiology Anshul Irizarry MD [address] [place], [place] [phone] [facility] Cardiology SpecialistStart: 47-40-8726TMHES-19 Vaccine (3 - Booster for Moderna series)COVID-19 Vaccine (3 - Booster for Moderna series)[facility] CenterStart: 79-37-6107Qbmumnmkuy measurementCreatinine monitoring [facility] CenterStart: 34-41-6583ApZ6a (Bld) [Mass fraction]A1C test (Diabetic or Prediabetic)[facility], KYStart: 83-60-7590Qutilmlogp A1c mzfhcuyycwmI9O test (Diabetic or Prediabetic)[facility] Medical CenterStgoshen: 12-97-4730Vwgar panelLipid screenUniversity Hospitals Ahuja Medical CenterStart: 39-08-0965Vfusovnwg monitoringPotassium monitoringUniversity Hospitals Ahuja Medical CenterStart: 69-21-1869Mxpjioxaci measurementCreatinine monitoringMercy Health [facility] Hospital, KYStart: 54-47-0741Bdthe panelLipid screenMercy Health [facility], KYStart: 73-25-5227Zqcjunemj monitoringPotassium [facility], KYStart: 21-56-5030Mfqrtayvb for malignant neoplasm of colonFIT/FOBT: Average riskOhio State University Wexner Medical Centerart: 29-97-6637Ghqyih TherapyStatin TherapyMercy Health [facility] Hospital, KYStart: 61-81-3376CegveMercy Health [facility], KYStart: 64-66-6306HwdqdMercy Health [facility], MNStart: 07-01-2020 End: 98-93-1964Jbgnsm Visit07/01/2020 Office Visit Cardiology Anshul Irizarry MD [address] [place] [address] [phone] [facility] Cardiology SpecialistStart: 98-30-3675J3M test (Diabetic or Prediabetic)A1C test (Diabetic or Prediabetic)[facility] Work Phone: start: 42-31-4314Uwdoxzkibc monitoringCreatinine [facility] Work Phone: start: 74-59-8493PvE2l (Bld) [Mass fraction]A1C test (Diabetic or Prediabetic)[facility], MNStart: 64-91-6750Fzmlxoddw monitoringPotassium [facility] Work Phone: start: 26-92-8187DjeveMercy Health Kings Mills HospitalJERRYart: 05-10-2020 A1C test (Diabetic or Prediabetic)A1C test (Diabetic or Prediabetic)[facility] [employer] Work Phone: start: 72-48-0320Xcimpsndne monitoringCreatinine monitoringWayne Hospital Health Work Phone: start: 19-89-5773Rxyddlkuq monitoringPotassium monitoringUniversity Hospitals Ahuja Medical Center Work Phone: start: 75-02-3269SgwhsMercy Health Kings Mills HospitalJERRYNew [place]: 04-23-2020 Patient EducationHealth Information for You: MedlinePl~[facility] Work Phone: Start: 18-80-1119Xipuxqqwj vaccinationMercy Health [facility] Hospital, JERRYNew Geneva: 01-08-2020 End: 31-98-2579Wnmndx Visit01/08/2020 Office Visit Cardiology Anshul Irizarry MD [address] [place] [address] [facility] Cardiology SpecialistStart: 08-22-2019 End: 61-49-0439Qvvqq Neurology SpecialistStart: 07-25-2019 End: 94-25-4582Uhcxyrs-INRMercy Health [facility], JERRYStart: 07-03-2019 End: 75-72-3148Wcjeoppt EncounterSTVZ CVORComment on above:CABG CORONARY ARTERY BYPASS X2; AORTIC VALVE REPLACEMENT, ON PUMP, JESSICA GUAMAN TEEStart: 06-29-2019 End: 51-02-2116CgzknhvmxcgLejrp Health [facility] LabStart: 06-25-2019 Annual Wellness Visit (AWV)Annual Wellness Visit (AWV)[facility] CenterStart: 21-78-4989VbjlyMercy Health [facility], JERRYart: 05-30-2019 End: 89-13-9216Unwxnpj encounter opluervjn47/08/2020 Office Visit Cardiology Anshul Irizarry MD [address] [place] [address] [phone] [facility] Cardiology SpecialistStart: 84-72-0412Rxucis Wellness Visit (AWV)Annual Wellness Visit (AWV)[facility] HospitalAdvisity Work Phone: start: 30-52-4870Ykxbkde [facility] DepartmentHealth Information for You: MedlinePl~[facility] Work Phone: Start: 42-41-3815Vtqwhvpel vaccinationFlu vaccine (#1) [facility] [employer] Work Phone: start: 40-25-5850NuywjQueen Anne, KYStart: 12-20-2017 Pneumococcal 50+ years Vaccine (2 of 2 - PPSV23)Pneumococcal 50+ years Vaccine (2 of 2 - PPSV23)[facility] HospitalStart: 37-25-5828Gujcjvkvckqz 65+ years Vaccine (2 - PPSV23 or PCV20)Pneumococcal 65+ years Vaccine (2 - PPSV23 or PCV20)[facility] CenterStart: 95-58-2999Sucekntijflr 65+ years Vaccine (2 of 2 - PPSV23 or PCV20)Pneumococcal 65+ years Vaccine (2 of 2 - PPSV23 or PCV20)[facility] HOSPITALStgoshen: 00-04-6793Hsxwfmweglrv Vaccine: 65+ Years (2 of 2 - PPSV23 or PCV20)Pneumococcal Vaccine: 65+ Years (2 of 2 - PPSV23 or PCV20)[facility] HospitalStart: 15-80-0239WDBV (modify frequency per FRAX score)DEXA (modify frequency per FRAX score)[facility] HospitalEnikos Phone: start: 73-62-1410Kjgazebrxcrj 65+ years Vaccine (1 of 1 - PPSV23)Pneumococcal 65+ years Vaccine (1 of 1 - PPSV23)[facility] HospitalEnikos Phone: start: 52-64-0711Mwgqajgkhbud 65+ years Vaccine (2 of 2 - PPSV23)Pneumococcal 65+ years Vaccine (2 of 2 - PPSV23)[facility] HospitalEnikos Phone: start: 91-87-8352RufkrSelect Medical Specialty Hospital [facility]: 2008 Respiratory Syncytial Virus (RSV) or age 60 yrs+ (1 - 1-dose 60+ series)Respiratory Syncytial Virus (RSV) or age 60 yrs+ (1 - 1-dose 60+ series)VANNESA LORA [facility]: 35-71-5276Vhezkhjdr for osteoporosisDEXA (modify frequency per FRAX score)[facility]: 43-37-3230Pjqwiqoiqtkeqc of varicella zoster vaccineZoster (Shingles) Vaccine (1 of 2)[facility] [employer] [facility] Hospitaltart: 37-20-9991Opvmik cancer screenBreast cancer screenAdena Fayette Medical CenterHelpstream Phone: start: 38-54-5057Zqkje cancer screen colonoscopyColon cancer screen colonoscopyWayne Hospital [employer] Phone: start: 60-96-3083Dxolwrkqu for malignant neoplasm of breastBreast cancer screenUniversity Hospitals [facility] Center: 13-37-6046Dntcvxgmm for malignant neoplasm of colonColon cancer screen colonoscopySelect Medical Specialty Hospital - [place]: 50-91-2807Gqoskupg Vaccine (1 of 2)Shingles Vaccine (1 of 2)[facility]: 59-13-6742NyrbbSelect Medical Specialty Hospital - [facility]stown: 16-96-5237Soafrhzdv for malignant neoplasm of colonUniversity Hospitals [facility]: 42-16-2634Aaocb screenLipid screenWayne Hospital [employer] Phone: start: 30-69-2235AZoY,Tdap and Td Vaccines (1 - Tdap) DTaP,Tdap and Td Vaccines (1 - Tdap)[facility] [employer] [facility] Hospitaltart: [birth year]-1967 DTaP/Tdap/Td vaccine (1 - Tdap)DTaP/Tdap/Td vaccine (1 - Tdap)[facility]: 68-42-5343Kcpobxkbb B vaccine (1 of 3 - Risk 3-dose series)Hepatitis B vaccine (1 of 3 - Risk 3-dose series)[facility] [employer] Phone: start: 23-65-8763SeimeSelect Medical Specialty Hospital [facility] [place]: 1966 Adult BMI Follow Up PlanAdult BMI Follow Up PlanMagruder Memorial HospitalShomoLivetart: 05-03-3943Bosikqmdfr ScreenDepression ScreenAdena Fayette Medical CenterCRATE Technology GmbHStart: 12-09-1959 DTaP/Tdap/Td vaccine (1 - Tdap)DTaP/Tdap/Td vaccine (1 - Tdap)[employer] Phone: start: 64-83-7590Parqj [place] Fish HatcherySOUTHEAST [facility] HemarinaStart: 1958 A1C test (Diabetic or Prediabetic)A1C test (Diabetic or Prediabetic)[employer] Phone: start: 70-55-6754OCmW/Tdap/Td Vaccines (1 - Tdap) DTaP/Tdap/Td Vaccines (1 - Tdap)[facility] HospitalStart: 37-43-0023Hczjabnhpd monitoringCreatinine monitoringAdena Fayette Medical CenterHelpstream Phone: start: 23-73-1611Bdvyqdttx C screenHepatitis C screen [facility] HospitalEnikos Phone: start: 07-19-1949Medicare Annual Wellness Visit Medicare Annual Wellness VisitMagruder Memorial HospitalShomoLivetart: 88-49-1523Ldyosjuyx monitoringPotassium monitoringAdena Fayette Medical CenterHelpstream Phone: start: 92-81-4476Pigwuvxhk for malignant neoplasm of colonNOMS HealthcareABG drawABG draw Respiratory Care Routine Daily until discontinued starting 06/25/2019A[facility]ayette Medical CenterHelpstream Phone: comment on above:Daily until discontinued starting 06/25/2019Albumin [Mass/volume] in Serum or PlasmaBrown Memorial HospitalAlbumin/Globulin ratioBrown Memorial HospitalBasic metabolic 2000 panelMercy Health [facility], MNBIPAPMMercy Health [facility], [place] End: 92-27-0985RKGEH BANK [facility], [place] End: 25-51-8544PDCGBSanford South University Medical Center, MNCardiac catheterization Cardiac Catheterization Cardiac Cath Routine 06/06/2019 10:52 AM ESTOhioHealth End: 99-69-9680Hganrfs event monitorCardiac event monitor Cardiac Services Routine Palpitations 1 Occurrences starting 09/07/2021 until09/07/2021A[facility]ayette Medical CenterHelpstream Phone: Comment on above:1 Occurrences starting 09/07/2021 until 09/07/2021BCMercy Health [facility], KYContinuous pulse oximetryPulse oximetry, continuous Respiratory Care Routine Every 4hr until discontinued starting 09/01/2023 [facility] HOSPITALChina Auto [employer] [facility] on above:Every 4hr until discontinued starting 09/01/2023EKG 12 LeadAdena Fayette Medical CenterHelpstream Phone: electrophoresis: jxkut-1-iapzmogiUmuqrsoqpBrown Memorial HospitalElectrophoresis: jaice-7-lzcdzeqqIuzqqfmkuBrown Memorial Hospital Electrophoresis: beta-globulinBrown Memorial HospitalElectrophoresis: gamma globulinBrown Memorial Hospital End: 90-16-8241Dpf Tidal CO2 ContinuousEnd Tidal CO2 Continuous Respiratory Care Routine Continuous until discontinued starting 09/01/2023 [facility] on above:Continuous until discontinued starting 09/01/2023Globulin [Mass/volume] in [facility] HospitalHemoglobin and Hematocrit, Blood, Post TransfusionMercy Health [facility], KYIgA [Mass/volume] in Serum or PlasmaBrown Memorial HospitalIgG [Mass/volume] in Serum or [facility] CenterIgM [Mass/volume] in Serum or Plasma Brown Memorial HospitalImmunofixation for UrineBrown Memorial HospitalInitiate Oxygen Therapy ProtocolMercy Health [facility], KYKappa light chains.free [Mass/volume] in [facility] HospitalKappa light chains.free/Lambda light chains.free [Mass Ratio] in [facility] HospitalLambda light chains.free [Mass/volume] in Serum or [facility] CenterMagnesium [Mass/Vol][facility], KYOxygen therapy [Minimum Data Set]Initiate Oxygen Therapy Protocol Respiratory Care Routine As Needed until discontinued starting 09/01/2023ON [facility] on above:As Needed until discontinued starting 09/01/2023 End: 60-07-8772Vlvsynvftasb coronary interventionBON [facility] on above:One Time for 1 Occurrences starting 08/17/2023 until 08/17/2023 Phosphate [Mass/Vol][facility], MNPlatelets (Bld) [#/Vol][facility], MNPOCT GlucoseMercy Health [facility], [place] End: 56-38-4337GFFOZPQ RBC (CROSSMATCH), 1 UnitsMercy Health [facility] Hospital, [place] End: 08-00-8555MKCCQNG RBC (CROSSMATCH), 2 UnitsMercy Health [facility] Hospital, [place] End: 41-35-3209AABRLEDY SPECIMENMercy Health [facility], MNPREVIOUS SPECIMENMercy Health [facility], MNProtein [Mass/volume] in Serum or PlasmaBrown Memorial HospitalProtime-INRMercy Health [facility], MNRenal function 2000 panel - Serum or PlasmaRegency Hospital Companyerum immunofixationBrown Memorial Hospital End: 22-08-5516SAP clinical swallow evaluationMercy Health [facility], [place] End: 19-43-6296FPO clinical swallow evaluationQueen Anne, KYSTRESS TEST REPORTSTRESS TEST REPORT Cardiac Services Ordered: 09/28/2023ON [facility] on above:Ordered: 09/28/2023Surgical PathologyDayton Children's Hospital Immunizations Immunization DateImmunizationNotesCare NiolyzqpMihlwhar60-11-4446awmsti vaccine recombinantGrayson Hernandez MD Work Phone: [facility] HospitalVuuenbjkoo21-34-0888Mehmxbck 50 MCG/0.5ML vaccine Grayson Hernandez MD Work Phone: [facility] HospitalVbkiocpjis71-88-4203jhyhnp vaccine recombinant Grayson Hernandez MD Work Phone: [facility] HospitalIplvsgewgu64-01-8070Bozuhzq Bivalent Booster VaccinationShannen Velazquez RN Work Phone: [facility] HospitalAwrrkchvar92-14-5130LWVXM-87, mRNA, LNP-S, PF, 100mcg/0.5mL DosePaBaptist Health Medical Center02-01-2022influenza, high dose seasonal, preservative-freeCHI St. [facility]02-01-2022 influenza virus vaccine, unspecified formulationCHI St. [facility] Infirmary12-06-2021COVID-19, mRNA, LNP-S, PF, 100mcg/0.5mL DosePafavio Hankins RN [facility] [facility] HospitalVjbszs19-72-5374VNJWO-32 Vaccine Moderna - Documentation Purposes OnlyThomas Felter Other [facility]03-13-2021COVID-19 Vaccine Moderna - Documentation Purposes OnlyThomas Felter Other [facility]10-10-2020influenza, injectable, quadrivalent, preservative freePaige Cr [facility] 14-23-2958Wuxbhmpb, quadrivalent, recombinant, injectable influenza vaccine, preservative freeAlma Cr [facility]11-03-2018influenza, high dose seasonal, preservative-freePafavio Cr [facility]11-03-2018 influenza, injectable, quadrivalent, preservative freeAlma Hankins RNRipley County Memorial HospitalPbdbxmygrh70-58-9586yvdenletgxgx conjugate vaccine, 13 valentPafavio Hankins RN [facility] HospitalSrtbub01-36-4730dtidrnkeg, injectable, quadrivalent, preservative freePaige Cr [facility]01-01-2016influenza, seasonal, injectablePhilip Stefano Chang [facility] PhysiciansComment on above:Note: Invalid documented admin date was /. ; Source: Other Provider Payers DatePayer CategoryPayerPolicy [id number] 2024Self-pay 2023Medicare (Managed Care)[id number] 66-93-7704Sapiakf8.2.840.818394.1.13.693.2.7.3.786070.36596-60-4766FdefigrU4G3H4 [id number] 2020MedicareMEDICARE MEDICARE PART A & B [id number] 2019-Present [id number] [id number] 2020 MedicareMEDICARE PFFS MEDICARE HMO/PPO/PFFS MISC* [id number] 2019- [id number].3.441470.315 2020Medicare [id number] 2018Medicarexxxxxxxxxxx [id number] Medicarexxxxxxxxx 1.2.840.959229.1.13.239.2.7.3.073371.315 1960Medicare [id number]-[id number] 2.0.1.558957.3.57[id number] 2.0.1.782025.3.57[id number] 2.0.1.626424.3.57[id number] 2.0.1.153292.3.57[id number] 2.0.1.317117.3.57[id number] 2.840.1.254595.3.57[id number] 2.840.1.797079.3.579.[id number] 2.16840.1.936591.3.57[id number] 2.16840.1.093932.3.57[id number] 2.16840.1.871089.3.57[id number] 2.16840.1.333194.3.57[id number] 2.16840.1.247242.3.57[id number] 2.16840.1.317706.3.57[id number] 2.840.1.454502.3.57[id number] 2.16840.1.125207.3.57[id number] 2.840.1.543857.3.57[id number] 2.840.1.571636.3.57[id number] 2.840.1.160290.3.57[id number] 2.16840.1.486986.3.57[id number] 2.16840.1.110242.3.57[id number] 2.16840.1.359270.3.57[id number] 2.16.840.1.108468.3.579.2.[id number] 2.16.840.1.022289.3.57[id number] 2.16.840.1.059431.3.579.2.981225-91-0825Xtbblkl8379031 2.16.840.1.151629.3.579.2.862566-42-5399Joxiyaw2925645 2.16.840.1.172801.3.579.2.749670-66-7495Fddqovm2645532 2.16.840.1.409776.3.579.2.762482-01-3664Sosuezf2690131 2.16.840.1.037996.3.579.[id number] 2.16.840.1.1045[id number] 2.16.840.1.166926.3.579.2.531 [id number] 2.16.840.1.35891[id number] 2.16.840.1.029995.3.579.2.531 Social History DateTypeDetailFacilityStart: 06-06-2019 End: 47-81-4930Zpqesut smoking status NHISNever smokerOhioHealthStart: 06-06-2019 End: 61-88-5432Ujccqjq intakeEx-drinker (finding)PennsylvaniaHealthStart: 93-46-9122Wrd Assigned At BirthNot on [facility] [employer] Phone: start: 06-25-2019 End: 65-63-7097Zpdhqxq intakeLifetime non-drinker (finding)[facility] [employer] Phone: start: 13-47-3708Dllhfqh SDOH Alcohol Eksvyyfyr4Yllvj [employer] Work Phone: start: 02-25-2020 End: 00-65-1908Waghoix use and exposureNever usedUniversity Hospitals [facility]- [place]Start: 02-28-2023 End: 73-85-3510Act Assigned At [facility] [employer] Other Start: 06-07-2023 End: 33-97-4940Lpxrans intakeCurrent drinker of alcohol (finding)[facility] Start: 06-07-2023 End: 26-25-0344Wvsqmuc intakeNOMS HealthcareDo you belong to any clubs or organizations such as sikhism groups, unions, fraternal or athletic groups, or school groups?YesNOMS HealthcareAre you now , , , , never or living with a partner?MarriedNOMS HealthcareHow often to you have a drink containing alcohol?Monthly or lessNOMS HealthcareHow many standard drinks containing alcohol do you have on a typical day?1 or 2NOMS HealthcareHow often do you have 6 or more drinks on 1 occasion?NeverNOMS HealthcareStart: 07-67-7220Iin hard is it for you to pay for the very basics like food, housing, medical care, and heatingNot hard at allNOMS HealthcareDo you feel stress - tense, restless, nervous, or anxious, or unable to sleep at night because yourmind is troubled all the time - these days [OSQ]To some extent [facility](I/We) worried whether (my/our) food would run out before (I/we) got money to buy more.Never trueNOMS HealthcareIn the past 12 months, was there a time when you were not able to pay the mortgage or rent on time?NoNOMS HealthcareStart: 61-49-7423Rrupnpzed16ATEL HealthcareStart: 86-94-1650Nxqwtux CommentCaffeine: 2-4 cupsNOMS HealthcareStart: 04-11-2024 End: 17-58-2409FzcCegjnhm sex unknown (finding)[facility] Start: 42-74-3117Cyx Assigned At [facility] Start: 33-04-7960Ahwrjtz intake (observable entity)Alcohol Use DetailsCVP PhysiciansStart: 04-17-2019 End: 22-24-2434AyzRhhjuu (finding)[facility] HospitalNEGATED: Highlighted rowStart: 53-37-3046Skjaidi smoking status NHISUnknown if ever smokedCVP PhysiciansNEGATED: Highlighted rowStart: 57-02-1701Ewxxpoa of tobacco useCurrent non-smokerCVP Physicians Medical Equipment Procedure CodeEquipment CodeEquipment Original TextEquipment IdentifierDates Closure Starclose Se - [id number], [id number] FDAStart: [id number]_jrcUozga: [id number]_affUtarm: [id number]_ynpZptkp: [id number]_qqeLcrag: 82-98-6359Gglwkon on above:Description: NO CHARGE PER COURTNEY [id number]_impStart: 43-51-3573Kfffsnq on above: Description: NO CHARGE PER COURTNEY MENESES AND REP HARITHA WILKINSONTCUBRUTB992109_bufOvdgm: 56-76-9941Krzhhds on above:Description: NO CHARGE PER COURTNEY MENESES AND REP. HARITHA [id number]_ekyXqlrd: [id number]_puoTniqr: [id number]_gmb Start: [id number]_bajUeeys: 06-37-9133NVY 1 TO CHECK GLUCOSE ONCE DAILY [id number]: each by Other route if needed.[id number]: each by Other route [id number]: 09-01-2023 End: Lancet [id number]: 11-30-2023 End: each by Other route [id number]: 11-12-2024 End: Lancet [id number]: 01-29-2025 End: 03-05-2026 Goals DatePatient GoalDesired Activity/StatePersonal health goalComment on above: Evaluation of progress towards goal: patient plans for a safe discharge home with self care and support from and son. Functional Status RmkiUsmblabzpwRdglboQlxtebaj56-64-4639Uimbfnq Health Questionnaire 2 item (PHQ- 2) [Reported][facility] HospitalJmrrqorvca08-63-0961Pcypjlw Health Questionnaire 2 item (PHQ- 2) [Reported][facility] Clinical Notes 06-23-2019 to 03-11-2025 Note Date & CdaqWnrnXcpwqwdu45-54-6207 Evaluation note* Diagnosis Onset Date Resolution Status Admit Date Urinary incontinence acuteOctober 2024 12:14pm [facility] Work Phone: 1(914) 808-112210-14-2025 History of Present illness Narrative* Grayson Hernandez MD - 03/05/2025 2:30 PM EDT Images from the original note were not included. Patient ID: Eleanor Mcclain is a 74 y.o. female who presents for: Hypertension Patient is here for follow-up of [...] thyroid hormones. History of target organ damage: angina/ prior myocardial infarction, chronic kidney disease, and stroke. Hyperlipidemia Pt who presents for follow-up of dyslipidemia. A repeat fasting lipid profile was done. The patientdoes not use medications that may worsen dyslipidemias (corticosteroids, progestins, anabolic steroids, diuretics, beta-blockers, amiodarone, cyclosporine, olanzapine). Exercise: never. Diabetes Mellitus Patient presents for follow up of diabetes. Current symptoms include: none. Symptoms have stabilized. Patient denies increased appetite, paresthesia of the feet, and visual disturbances. Evaluation to date has included: fasting blood sugar, fasting lipid panel, and hemoglobin A1C. Home sugars: BGs are high in the morning 145 this after about 10.5-11 hours fasting. Review of Systems Still complains of itching. Also complains of symptoms consistent with her previous UTIs especially frequency and difficulty tocontrol the urge. No fever chills no flank pain. notes that the urine is cloudy and has an odor. Objective The patient is pleasant and in no acute distress The patient has good eye contact and clear speech The patient is basically picking at her face throughout the office visit today. She has open woundsfrom the picking. She states she has a minor arms also been is not willing to pull her sleeves up to show me. There is no icterus or jaundice. The skin itself is not overly dry. Trace peripheral edema 03/05/2025 2:33 PM 09/18/2024 4:33 PM 09/05/2024 2:43 PM 08/20/2024 3:02 PM Vitals BMI 25.56 kg/m2 23.22 kg/m2 25.38 kg/m2 25.38 kg/m2 BSA (m2) 1.69 m2 1.61 m2 1.68 m2 1.68 m2 Systolic 126 112 Diastolic 76 70 Heart Rate 70 71 SpO2 99 % 99 % Height (in) 5' 2.5 5' 2.5 5' 2.5 5' 2.5 Weight (lb) 142 129 141 141 Visit Report Report Report Report Report Component Ref Range & Units 8 d ago (02/25/25) 9 mo ago (05/24/24) 2 yr ago (03/03/23) 2 yr ago (05/31/22) 5 yr ago (06/25/19) 5 yr ago (05/10/19) Hemoglobin A1C <5.7 % 6.6 High 6.4 High R, CM Allergies Allergen Reactions Latex Anaphylaxis Other Reaction(s): Anaphylactic Shock, nose runs, eyes swell, itching Other reaction(s): nose runs, eyes swell, itching, unknown Eyes swell shut, rash Eyes swell shut, rash Eyes swell shut, rash Current Outpatient Medications on File Prior to Visit Medication Sig Dispense Refill apixaban (Eliquis) 5 MG tablet Take 1 tablet by mouth in the morning and 1 tablet before bedtime. aspirin 81 MG EC tablet Take 81 mg by mouth in the morning. Blood Glucose Monitoring Suppl (ONE TOUCH ULTRA 2) w/Device kit calcium citrate 250 MG tablet Take 1 tablet by mouth 1 (one) time each day carvedilol (Coreg) 6.25 MG tablet Take 6.25 mg by mouth in the morning and 6.25 mg in the evening. Take with meals. cholecalciferol (Vitamin D-3) 125 MCG (5000 UT) capsule Take 5,000 Units by mouth Daily dilTIAZem CD (Cardizem CD) 180 MG 24 hr capsule Take 1 capsule (180 mg) by mouth Daily 90 capsule 1 donepezil (Aricept) 10 MG tablet Take 2 tablets (20 mg) by mouth at bedtime 180 tablet 1 dulaglutide (Trulicity) 0.75 MG/0.5ML solution pen-injector Inject 0.75 mg under the skin once a week On Tuesday DULoxetine (Cymbalta) [address] capsule Take 2 capsules (40 mg) by mouth Daily Do not crush or chew.60 capsule 2 ferrous sulfate 325 (65 Fe) MG tablet Take 325 mg by mouth every other day furosemide (Lasix) 20 MG tablet 2 tablets every am (= 40 mg) and 1 tablet (=20 mg) daily before supper 90 tablet 1 glucose blood (OneTouch Ultra) test strip 1 each by Other route Daily 100 each 3 Lancets (OneTouch Delica Plus Vblvjv89M) misc 1 Lancet Daily 100 each 3 levothyroxine (Synthroid, Levoxyl) 88 MCG tablet Take 1 tablet (88 mcg) by mouth Daily 90 tablet 1 [DISCONTINUED] ALPRAZolam (Xanax) 0.25 MG tablet Take 0.5 tablets (0.125 mg) by mouth in the morning and 0.5 tablets (0.125 mg) before bedtime. (Patient not taking: Reported on 02/18/2025) [DISCONTINUED] atorvastatin (Lipitor) 40 MG tablet Take 1 tablet (40 mg) by mouth Daily (Patient not taking: Reported on 02/18/2025) 90 tablet 1 [DISCONTINUED] ipratropium (Atrovent) 0.06 % nasal spray Administer 2 sprays into each nostril in the morning and 2 sprays at noon and 2 sprays in the evening and 2 sprays before bedtime. (Patient not taking: Reported on 01/03/2025) 15 mL 0 No current facility-administered medications on file prior to visit. 1. Primary hypertension (Primary) Chronic problem, stable, to goal. Continue current treatment. Also cross treated with medications from cardiology. - dilTIAZem CD (Cardizem CD) 180 MG 24 hr capsule; Take 1 capsule (180 mg) by mouth Daily Dispense:90 capsule; Refill: 1 - furosemide (Lasix) 20 MG tablet; 2 tablets every am (= 40 mg) and 1 tablet (=20 mg) daily before supper Dispense: 90 tablet; Refill: 1 2. Mixed hyperlipidemia Chronic problem and advised. Statin medication by Cardiology. I am in agreement with this especially with the polyp polypharmacy and life expectancy. 3. Hypokalemia Chronic problem, stable, continue to monitor longitudinally. 4. Type 2 diabetes mellitus with stage 3b chronic kidney disease, without long- term current use of insulin ([facility]) Chronic problem, stable, diabetes to goal. While she is still in stage IIIB her kidney function is slightly better. 5. Anemia due to stage 3b chronic kidney disease ([facility]) Chronic problem, stable, monitor longitudinally. - ferrous sulfate 325 (65 Fe) MG tablet; Take 1 tablet (325 mg) by mouth every other day Dispense: 45 tablet; Refill: 3 6. Microalbuminuria Chronic problem, defining an aspect the nephropathy, with significant risk, uncertain progression requiring longitudinal monitoring, and moderate decision making. Microalbuminuria describes a moderate increase in the level of urine albumin. Normally, the kidneysfilter albumin, so if the kidney leaks small amounts of albumin into the urine then it is a indicator of chronic kidney disease. Microalbuminuria is an independent indicator of increased cardiovascular risk among individuals andtherefore can be used for risk stratification for cardiovascular disease. 7. Paroxysmal atrial fibrillation (HCC) Currently managed by Cardiology 8. Chronic diastolic congestive heart failure, NYHA class 1 ([facility]) Chronic problem, stable, overall doing well. - furosemide (Lasix) 20 MG tablet; 2 tablets every am (= 40 mg) and 1 tablet (=20 mg) daily before supper Dispense: 90 tablet; Refill: 1 9. Acute cystitis without hematuria Both the patient and her are fairly convinced she has a UTI. Patient was specifically asking for Bactrim which is potentially contraindicated due to her renal failure. We discussed and agreedon empiric treatment with cefuroxime. - cefuroxime (Ceftin) 250 MG tablet; Take 1 tablet (250 mg) by mouth in the morning and 1 tablet (250 mg) before bedtime. Do all this for 5 days. Dispense: 10 tablet; Refill: 0 10. Chronic pruritus This is now out of the stage it is a chronic problem. We discussed some options. He has been previously evaluated and no source was found. They would prefer no further medications. For some of the open wounds we did discuss some healing creams. 11. Polypharmacy Chronic problem The patient meets the criteria for polypharmacy; 5 or more prescriptions or multi-morbidity definedas 5 or more diagnoses. Polypharmacy can significantly increase the risk of adverse drug events and negatively impact adherence. Consideration of factors such as clinician agreement, patient perspective, and de-prescribing,as appropriate can improve patient outcomes while simplifying care. This requires longitudinal monitoring as there is at least a moderate risk of morbidity and requires at least a moderate degree of evaluation and management. Please Note: Portions of this chart may have been created using voice recognition software. Occasionally a wrong-word or sound-like substitutions may have occurred due to inherent limitations of the voice recognition software. Please read the chart carefully and recognize, using context, where the substitutions may have occurred. documented in this encounterRipley County Memorial HospitalTctgmsptkz61-78-4343 History of Present illness Narrative* Shannen Velazquez RN - 01/07/2025 4:21 PM EDT Returned call to Howard. Discussed alert button with SW. Discussed that [...] started on 01/02/25. No changes noted yet. * Grayson Hernandez MD - 01/07/2025 4:21 PM EDT Prescription sent documented in this encounterRipley County Memorial [id number] History of Present illness Narrative* Jorge Luis Gasca MD - 11/05/2024 11:35 AM EDT Skin Check Location: Patient requests a skin examination of the face and scalp only, waist up and/or full bodyskin exam was offered, but patient declined Dermatologic [...] (Face), Neck - Anterior Stuck on verrucous, hopkins-brown papules Patient was counseled regarding these benign [...] 3. LENTIGINES Head - Anterior (Face) Scattered hopkins macules in sun-exposed areas. The patient was informed that lentigines are benign pigmented lesions that occur on sun-exposed andsun-damaged skin. No treatment is necessary. Recommended regular use of broad spectrum sunscreen SPF 30 or higher 4. OTHER SEBORRHEIC DERMATITIS Head - Anterior (Face) Dry, scaly skin Offered treatment, patient declined. Next Visit: 1 year documented in this encounterRipley County Memorial HospitalYibqfwsdwu12-24-6369 Telephone encounter Note* Telephone Encounter - Nguyen Flores - 10/01/2024 12:59 PM EDT Was contacted and was noted that they had received all the information needed and they were going to call Eleanor to schedule Home Health PT. [facility] HospitalEifizsoadf42-19-0771 Miscellaneous Notes* Telephone Encounter - Nguyen Flores - 10/01/2024 12:59 PM EDT Was contacted and was noted that they had received all the information needed and they were going to call Eleanor to schedule Home Health PT. documented in this [facility]05-12-2025 Telephone encounter Note* Telephone Encounter - Nguyen Flores - 10/01/2024 11:05 AM EDT Sent referral for PT to [facility] for HELENE Magaña. Then called Martha back noting she should be receiving a phone call to set-up Home Health, per PT recommendation. [facility] [id number] Miscellaneous Notes* Telephone Encounter - Nguyen Flores - 10/01/2024 11:05 AM EDT Sent referral for PT to [facility] for HELENE Magaña. Then called Martha back noting she should be receiving a phone call to set-up Home Health, per PT recommendation. * Telephone Encounter - Nguyen Flores - 10/01/2024 9:13 AM EDT He called re: at her Eval he said that an In-Home therapist was recommended and was calling to check on that and the status of whom it would be with. documented in this [facility]05-12-2025 Telephone encounter Note* Telephone Encounter - Nguyen Flores - 10/01/2024 9:13 AM EDT He called re: at her Eval he said that an In-Home therapist was recommended and was calling to check on that and the status of whom it would be with. [facility] [id number] History of Present illness Narrative* Grayson Hernandez MD - 09/18/2024 4:30 PM EDT Images from the original note were not included. Patient ID: Eleanor Mcclain is a 73 y.o. female who presents for: Copied from [facility] Note: Progress Notes Shannen Velazquez, RN (Registered Nurse) Family [facility] for [facility]. Returned call to Howard. States that pt's blood sugars are elevating, Howard gave blood sugars for the last 2 weeks. States pt is going thorough periods where she is having difficulty walking. Has had multiple falls.He would like home health physical therapy. Discussed with Howard for home health physical therapy pt would need a face to face appt for insuranceto pay for this. Discussed if he knew [...] was very easily able to push it rightback down specifically asking her to resist this was about the same on both sides. Again using my bad arm I was able to resist any extension of her quadriceps that she was attempting. Because of the complaint of weight loss and not eating enough I did have my medical facilities section director come in the room and we put a flattened digital scale on the floor in front of her. It took both of us tohelp her out of the chair and giving [...] by mouth Daily Do not crush or chew.60 capsule 2 furosemide (Lasix) 20 MG tablet 2 tablets every am (= 40 mg) and 1 tablet (=20 mg) daily before supper 90 tablet 1 glucose blood (Synapseuch Ultra) test strip 1 each by Other route Daily 100 each 3 ipratropium (Atrovent) 0.06 % nasal spray Administer 2 sprays into each nostril in the morning and 2 sprays at noon and 2 sprays in the evening and 2 sprays before bedtime. 15 mL 0 Lancets (WeathermobTouch Delica Plus Dodlhf78W) misc 1 Lancet Daily 100 each 3 levothyroxine (Synthroid, Levoxyl) 88 MCG tablet Take 1 tablet (88 mcg) by mouth Daily 90 tablet 1 magnesium 200 MG tablet Take 200 mg by mouth in the evening. nzsajhcq-oqujrfceg-edgYRLUCpdxbw (Maxitrol) 0.1 % ophthalmic suspension 1 drop to affected eye 3 times daily for 7 days. 5 mL 0 No current facility-administered medications on file prior to visit. 1. Generalized weakness This is certainly worsened, truly to the point she should either be an assisted living or potentially ultimately a prison. I am not sure of her safety [...] Future I certify that I had a narr-sw-plit encounter with this patient at todays office visit. Due to thismedical condition the patient requires Physical therapy. I certify that based on my findings The physical therapy ordered is medically necessary for this patient. This has been discussed with the patient and/or their sales service representative and mutually agreed upon. 3. History of [...] least amoderate degree of evaluation and management. 5. Type 2 diabetes mellitus with hyperglycemia, without long-term current use of insulin ([facility]) I did discuss with him that without the blood sugar and blood pressure readings I really could haveno impact in her health care today. Unfortunately [...] about either some protein shakes or even [place] instant breakfast with some ice cream to make a milkshake if she is interested. documented in this encounterRipley County Memorial [id number] History of Present illness Narrative* Grayson Hernandez MD - 09/05/2024 2:30 PM EDT Images from the original note were not included. Patient ID: Eleanor Mcclain is a 73 y.o. female who presents for: Flowsheet Row Patient Outreach from 08/29/2024 in [facility] with Shannen Velazquez RN Hospital Information ED, Hospital or Nursing Home Facility Discharge? ED Patient has been contacted within 2 days of being seen in the ED Yes Diagnosis Fall from Standing, Laceration of scalp, chronic renal disease, stapled skin wound, Fracture of nasal bone Discharge Date 08/29/24 Discharged To: Home Setting Discharge Hospital [facility] Engagement Call Start Time 1541 Admission Date 08/29/24 Medications Discharge medications reviewed [...] the left lateral posterior occipital aspect of herscalp. Test: labs, CT of facial bones, CT [...] the left parietal region of the scalp. [place] appear intact and wound is approximated and [...] by mouth Daily Do not crush or chew.60 capsule 2 furosemide (Lasix) 20 MG tablet 2 tablets every am (= 40 mg) and 1 tablet (=20 mg) daily before supper 90 tablet 1 glucose blood (Synapseuch Ultra) test strip 1 each by Other route Daily 100 each 3 ipratropium (Atrovent) 0.06 % nasal spray Administer 2 sprays into each nostril in the morning and 2 sprays at noon and 2 sprays in the evening and 2 sprays before bedtime. 15 mL 0 Lancets (WeathermobTouch Delica Plus Llcmyx36Z) misc 1 Lancet Daily 100 each 3 [...] transition of care note is reviewed. a lutv-ff-vwuy evaluation is done today. Medical decision making [...] least amoderate degree of evaluation and management. 7. Overweight [...] with the adjustment in their medication. - nxhcpkfr-xyndiylic-khvRYWJHlsmmo (Maxitrol) 0.1 % ophthalmic suspension; 1 drop to affected eye 3times daily for 7 days. Dispense: 5 mL; Refill: 0 documented in this [facility]04-14-2025 Telephone encounter Note* Telephone Encounter - Pauly Huber MA - 09/03/2024 3:43 PM EDT NATALIE and Shannen just do you know her Sept is HTN HLD DM and she needs a November Sleep Memory OV. Shehas too many problems to be doing everything in one visit [facility] [id number] History of Present illness Narrative* Shannen Velazquez RN - 09/03/2024 12:34 PM EDT Spoke with Howard, pt needs rx for ARIPiprazole and Donepezil to [facility] documented in this [facility]04-01-2025 Miscellaneous Notes* Telephone Encounter - Pauly Huber MA - 09/03/2024 3:43 PM EDT Trudi just do you know her Sept is HTN HLD DM and she needs a November Sleep Memory OV. Shehas too many problems to be doing everything in one visit documented in this [facility]03-31-2025 History of Present illness Narrative* Grayson Hernandez MD - 08/20/2024 3:00 PM EDT Images from the original note [...] also here to help the patient to understandand follow through with treatment plans established today. [...] repeat fasting lipid profile was done. The patientdoes not use medications that may worsen dyslipidemias [...] 30 tablet 0 Blood Glucose Monitoring Suppl (Mister Mario ULTRA 2) w/Device kit USE ONCE DAILY [...] by mouth Daily Do not crush or chew.60 capsule 2 furosemide (Lasix) 20 MG tablet 2 tablets every am (= 40 mg) and 1 tablet (=20 mg) daily before supper 90 tablet 0 glucose blood (FIXO Ultra) test strip 1 each by Other route Daily 100 each 3 ipratropium (Atrovent) 0.06 % nasal spray Administer 2 sprays into each nostril in the morning and 2 sprays at noon and 2 sprays in the evening and 2 sprays before bedtime. 15 mL 0 Lancets (OneTouch Delica Plus Ywyczi89M) [facility] 1 Lancet Daily 100 each 3 levothyroxine [...] 1 capsule (180 mg) by mouth Daily Dispense:90 capsule; Refill: 1 - furosemide (Lasix) 20 [...] due to type 2 diabetes mellitus (HCC) ([facility]/HCC) Chronic problem that is stable for now. They have had multiple previous opportunities to be referred to Nephrology and I have chosen not to. - Comprehensive metabolic panel; Future - Comprehensive metabolic panel 7. Type 2 diabetes mellitus with hyperglycemia, without long-term current use of insulin ([facility]/HCC) Chronic problem continue current treatment. - Hemoglobin [...] least amoderate degree of evaluation and management. 9. Edema, unspecified type More of an acute problem that is probably secondary to multiple of the above illnesses not being Optimized. Adjust the Lasix. - furosemide (Lasix) 20 MG tablet; 2 tablets every am (= 40 mg) and 1 tablet (=20 mg) daily before supper Dispense: 90 tablet; Refill: 1 [facility] [id number] Evaluation note* Type Assessment Date assessment Type 2 diab with mild nonp rtnop without macular edema, bi impression Type 2 diab with mil d nonp rtnop without macular edema, bi: E11.3293. OU assessment Presence of intraocular lens Jun impression Presence of intraocular lens: Z9 6.1 [facility] Work Phone: [phone] History of Present illness Narrative* Encounter Date [...] both eyes. no noticeable change in vision Pjv-11-2229gvvky pressureThe patient's blood pressure was at 132/ 74. blurry visionThe patient complains of blurry vision in the right eye and left eye. It started about 1 year ago .The onset was gradual. It affects both near and far vision. The symptom is infrequent.Bys-28-6469DVBAwj 63 year old female presents for evaluation of MGHDyi-63-7637wkaciu pawhkhVgq-01-9088gdpdto vision Knc-10-4823XxugvrLougxl A1C was 6.2. BS today 176. BP today was 142/80. Uko-29-0804lnorhkeqx in visionThe patient complains of a decrease in vision in the right eye and left eye for months. The onset was gradual. It affects near vision. The symptom is constant. It occurs all the time. The condition is mild. The condition is described as blurring. 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 [facility] Work Phone: [phone] Instructions* Date Instruction Additional Infor cristi 12mth [...] edema, bi Return in [address] Decker for follow up exam and [...] degeneration, bilateral Return in [address] Decker for follow up exam and [...] compliance from a retinal standpoint with the PCP/Script Worker. Appropriate follow up with primary eye rn progressive care was recommended. Letter sent to PCP. Related [...] compliance from a retinal standpoint with the PCP/Script Worker. Appropriate follow up with primary eye rn progressive care was recommended. Related to Type 2 diab [...] from a retinal standpoint and with the PCP/Script Worker. Diabetic retinopathy book given to patient. Related to Background diabetic retinopathy - Discussed ocular a nd systemic benefits of blood sugar control as well as the importance of follow up compliance from a retinal standpoint and with the PCP/Script Worker. Related to Diabetes with ophthalmic manifestations, type II o - Return in 1 year w [facility] Dr. Smith for follow up exam with [...] from a retinal standpoint and with the PCP/Script Worker. Related to Diabetes with ophthalmic manifestations, type II o - Return in 1 year w [facility] Dr. Smith for follow up and OCT. [...] from a retinal standpoint and with the PCP/Script Worker. Diabetic retinopathy book given to patient. Related to Background diabetic retinopathy Diabetes with ophtha lmic manifestations, type II Condition: established. - Discussed ocular and systemic benefits of blood sugar control as well as the importance of follow up compliance from a retinal standpoint and with the PCP/Script Worker. Related to Diabetes with ophthalmic manifestations, type II o - Return in 1 year w ardha Smith for follow up exam and OCT. [...] from a retinal standpoint and with the PCP/Script Worker. Related to Background diabetic retinopathy Retinal hemorrhage O U Condition: established, stable. - Will continue to monitor. 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 - Advised patient to keep all follow up appointments with Dr. Hardy. Related to Senile nuclear sclerosis [facility] Work Phone: [phone] Telephone encounter Note* Telephone Encounter - Grayson [...] will give me an update next week. [facility] [id number] Miscellaneous Notes* Telephone Encounter - Grayson Hernandez [...] it by Dr. Hernandez. documented in this encounterRipley [facility] HospitalQxssxdtepk55-42-3351 Telephone encounter Note* Telephone Encounter - Maria Dolores Hare - 06/04/2024 9:49 AM EST Howard called, he stated that Katelyn's hands have been very swollen. Her left hand is worse than the right. He had her take her rings off and had a struggle getting them off. He is not sure what to do but wanted to run it by Dr. Hernandez. [facility] HospitalImdcczfyay86-20-9632 Telephone encounter Note* Telephone Encounter - Grayson [...] in his it is a controlled substance. [facility] HospitalTxwndvxlgf86-17-0138 Miscellaneous Notes* Telephone Encounter - Grayson Hernandez [...] is a controlled substance. documented in this encounterRipley County Memorial HospitalCdrleiyquy21-73-7954 History of Present illness Narrative* Grayson Hernandez [...] mouth Daily 90 tablet 1 glucose blood (WeathermobTouch Ultra) test strip 1 each by Other route Daily 100 each 3 ipratropium (Atrovent) 0.06 % nasal spray Administer 2 sprays into each nostril in the morning and 2 sprays before bedtime. 15 mL 0 Lancets (WeathermobTouch Delica Plus Vczrdy52R) misc 1 Lancet Daily 100 each 3 [...] 6. Overweight (BMI 25.0-29.9) documented in this encounterRipley County Memorial HospitalDkulamipvq85-24-7056 Radiology Diagnostic study [facility] [place] [address] [place] [address] Ultrasound Report Signed Patient: Eleanor Mcclain MR#: [id number] : 1950 Acct:[id number] Age/Sex: 73 / F ADM Date: 4 Loc: Room: Type: [facility] Attending Dr: Morgan Womack MD Ordering [...] findings. Impression dictated by: Shant Pastrana Jr., D.OGina04/10/2024 3:04 PM Dictation Location: [place] [address] Tech: Susan Christinasybette Transcribed By: CATA 04/10/24 1504 Dictated By: Shant Pastrana Jr, 04/10/24 1503 Signed By: 04/10/24 1504 [facility]10-17-2024 Evaluation note* Diagnosis Onset Date Resolution Status Admit Date Anemia of renal disease acuteOctober 2023 1:21pmCKD (chronic kidney disease) stage 4, GFR 15-29 ml/minacuteOctober 2023 1:21pmHypertensive chronic kidney disease with stage 1 through stage 4 chronic kiacuteOctober 2023 1:21pmSecondary hyperparathyroidismacuteOctober 2023 1:21pmType 2 diabetes mellitus with diabetic chronic kidney diseaseacuteOctkentucky river [facility] 2023 1:21pm [facility] Work Phone: 1(288) 271-634910-01-2024 History of Present illness Narrative* Grayson Hernandez [...] identify problems with 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 Family and patient report problems with [...] mouth Daily 90 tablet 1 glucose blood (Synapseuch Ultra) test strip 1 each by Other route Daily 100 each 3 ipratropium (Atrovent) 0.06 % nasal spray Administer 2 sprays into each nostril in the morning and 2 sprays before bedtime. 15 mL 0 Lancets (WeathermobTouch Delica Plus Gpnbfc82X) misc 1 Lancet Daily 100 each 3 [...] of evaluation and management. documented in this encounterRipley County Memorial HospitalYxpeytkrha12-37-4524 History of Present illness Narrative* Shannen Velazquez RN - 02/10/2024 10:00 AM EDT <February 10, 2024, 10:01 - Shannen Velazquez RN> received call from pt's , Howard that he received a call from [facility], that they are unable to fill medication, pt was on auto refill but needs to see the doctor before it can be filled. Called Adrian, discussed Rx's needed. <February 10, 2024, 10:12 - Shannen Velazquez RN> Called Howard, notified that CM spoke to [facility] pharmacy. It was Atorvastatin that was needed. Cardizem is due also. Will request rx's * Grayson Hernandez MD - 02/10/2024 10:00 AM EDT RX sent documented in this encounterRipley County Memorial HospitalFldhjocukl94-90-7455 Miscellaneous Notes* Telephone Encounter - Grayson Hernandez MD - 01/24/2024 1:37 PM EDT RX sent documented in this encounterRipley County Memorial HospitalZvmrwnhvfb46-84-8211 Telephone encounter Note* Telephone Encounter - Grayson Hernandez MD - 01/24/2024 1:37 PM EDT RX sent [facility] HospitalSnhesqnljr64-05-9825 History of Present illness Narrative* Larissa Weathers [...] snack and beverage provided. [facility] History of Present illness Narrative* Tameka Adan RN - 09/01/2023 3:09 PM EDT All discharge instructions given. All questions answered at this time. All belongings returned. * Tameka Adna RN - 09/01/2023 3:08 PM EDT IV [...] responsible adult. Yes [facility] Discharge instructions* Discharge Instructions* Tameka Adan [...] your doctor if you can take an qbwf-atc-zrjcyzd medicine. If you think your pain medicine [...] or uneven pulse. After calling 911, the operator prefinish may tell you to chew 1 adult-strength [...] Where can you learn more? Go to [email or web address] and sign in to your [employer] account. Enter G817 in the Search Health Information box to learn more about Sedation for a Medical Procedure: Care Instructions. If you do not have an account, please click on the Sign Up Now link. [employer]. Care instructions adapted under license by [employer]. This care instruction is for use with your licensed healthcare professional. If you have questions about amedical condition or this instruction, always ask your healthcare professional. [employer] disclaims any warranty or liability for your use of this information. Content Version: 10.6.966036; Current as of: January 29, 2014 documented in this encounterB[facility] Miscellaneous Notes* Telephone Encounter - Portia Osorio - 07/04/2023 8:14 AM EST What is the reason for the call? Patients needs to cancel the appt for tomorrow and reschedule. They have other commitments at this time. What is a good call back number? Martha- [phone] * Telephone Encounter - Beth Flores CMA [...] to see Dr Monroy. [facility] Telephone encounter Note* Telephone Encounter - Portia Osorio - 07/04/2023 8:14 AM EST What is the reason for the call? Patients needs to cancel the appt for tomorrow and reschedule. They have other commitments at this time. What is a good call back number? Sydnee [phone] [facility] [employer] [id number] Telephone encounter Note* Telephone Encounter - Beth Flores CMA - 07/04/2023 8:14 AM EST Called Martha back to resched tmrw's apt. Unavailable; LVM and call back number [facility] [employer] [id number] Telephone encounter Note* Telephone Encounter - Larissa Kim - 07/04/2023 8:14 AM EST Spoke with Martha, he spoke with pcp and that doctor is going to take responsibility for the patients care/treatment needed and no longer wishes to see Dr Monroy. [facility] [employer] [id number] Miscellaneous Notes* Telephone Encounter - Alma Hankins [...] spouse and scheduled appt documented in this encounterAv[facility]01-08-2024 Telephone encounter Note* Telephone Encounter - Alma Hankins RN - 05/30/2023 10:49 AM EST Per May 2023 recall, patient is due for follow up appointment with Dr. Monroy. Please call to schedule with Dr. Monroy or SCHUYLER. [facility] [employer] [id number] Telephone encounter Note* Telephone Encounter - Larissa Kim - 05/30/2023 10:49 AM EST Called patients mobile (belongs to spouse) and left VM Called patients home and left VM [facility] [employer]01-08-2024 Telephone encounter Note* Telephone Encounter - Nidhi Sepulvedaon - 05/30/2023 10:49 AM EST Patient's nurse called to schedule appointment. Below is the best contact for the patient. Best Contact: [employer]01-08-2024 Telephone encounter Note* Telephone Encounter - Larissa Kim - 05/30/2023 10:49 AM EST Spoke with patients spouse and scheduled appt [facility] [employer]02-25-2023 Evaluation note* Encounter Date Diagnosis Assessment Notes Treatment Notes Treatment Clinical Notes Jun, Contact with and (gallahger spected) exposure to other viral communicable diseases (ICD-10 - Z20.828) Jun,Walking pneumonia (ICD-10 - J18.9)Take medications as directed. Rest and increase fluid [...] weeks for the cough to go away [employer] Other 04-18-2022 History of Present illness Narrative* Ambika Romero RCP - 09/07/2021 9:30 AM EDT The patient was educated on the use of an event monitor. The patient's comprehension was high. The patient was able to verbalize recall. The patient was instructed on how and when to return the monitor. documented in this [facility] Phone: [phone]) 802-318901-31-2022 Evaluation note* Encounter Date Diagnosis Assessment Notes Treatment Notes Treatment Clinical Notes May, Other low back pain (ICD-10 - M5 4.59) May,Muscle spasm of back (ICD-10 - M62.830) Patients primary complaint today is mid thoracic and upper lumbar back pain. Her pain appears to have a muscular componet upon exam. I will prescribe the patient a short term suppply of Flexeril as needed for muscle spasms. In the meantime, she will continue taking her current medication regimen ofOxycodone for severe breakthrough pain. Of note, her previous lower lumbar facet ablation appears to have provided reasonable relief in regards to her lower lumbar pain, her current symptoms appear to be higher than this region. May,ost herpetic neuralgia (ICD-10 - B02.29) Patient continues to complain of severe pain in her lower lumbar region and left thigh secondary topost herpatic neuralgia. She feels her current medication regimen is no longer controlling her painsymptoms. May,hronic pain (ICD-10 - G89.29) May,hronic, continuous use of opioids (ICD-10 - F11.90) [...] educated regarding the risks and benefits of fpc opioid use. She understands the associated risks with this medication and agrees that it provides reasonable benefit in regards to her pain control and level of function. This medication was filled today. May,therAbove note written by Michael Houston CMA, Steel [employer]. Edited and approved by Dr. Martha Rendon MD. [employer] Other 02-01-2020 History general Narrative - Reported* Type Description Date Medical History Hypertension Medical HistoryDiabetesMedical HistoryHypokalemiaSurgical Historyhysterectomy Surgical HistorycholecystectomySurgical Historytriple bypass, valve replacement 06/2019Hospitalization Historysee above [employer] Other 02-01-2020 History general Narrative - Reported* Type Description Date Medical History Hypertension Medical HistoryDiabetesMedical HistoryHypokalemiaSurgical Historyhysterectomy Surgical HistorycholecystectomySurgical Historytriple bypass, valve replacement 06/2019Surgical Historycataract ouvhapc4563Pwedgsljbhiquii Historysee above [employer] Other Consult note* Clinical Note Date No Information [facility] Work Phone: Discharge summary* Clinical Note Date No Information [facility] Work Phone: Evaluation note* Diagnosis Hypertension, unspecified type Hyperlipidemia, unspecified hyperlipidemia type Other specified diabetes mellitus with other specified complication, unspecified whether fpc insulin use (HCC) Vitamin D deficiency disease Unspecified vitamin D deficiency documented in this encounter [facility] Phone: evaluation note* Diagnosis Hypertension, unspecified type Hyperlipidemia, unspecified hyperlipidemia type Other specified diabetes mellitus with other specified complication, unspecified whether ad terminal makeup operator insulin use (HCC) Vitamin D deficiency disease Unspecified vitamin D deficiency documented in this encounter [facility] Phone: evaluation note* Diagnosis Systolic murmur Undiagnosed cardiac murmurs Moderate mitral regurgitation Mitral valve disorders Severe aortic stenosis Aortic valve disorders documented in this encounter [facility] Phone: evaluation note* Diagnosis Palpitations documented in this encounter [facility] Phone: evaluation note* Diagnosis Diastolic congestive heart failure, NYHA class 1, unspecified congestive heart failure chronicity ([facility]) documented in this encounter [facility]Evaluation [facility]* Diagnosis Mild mitral stenosis by prior echocardiogram- Primary Mitral stenosis Chronic a-fib ([facility]) Atrial fibrillation documented in this encounter [facility] note* Diagnosis SOB (shortness of breath) Shortness of breath documented in this encounter [facility]* Diagnosis Chronic organic brain syndrome [...] class 1, unspecified congestive heart failure chronicity ([facility]/HCC) [facility]* Diagnosis Mixed hyperlipidemia ([facility]) Mixed hyperlipidemia documented in [facility] encounter [facility]* Diagnosis Primary hypertension ([facility])- Primary Unspecified essential hypertension Mixed hyperlipidemia ([facility]) Mixed hyperlipidemia [facility]* Diagnosis Anxiety associated with depression Dysthymic disorder [facility]* Diagnosis Acquired hypothyroidism ([facility]) Unspecified hypothyroidism Benign essential hypertension ([facility]) Essential hypertension, benign [facility]* Diagnosis Diastolic congestive heart failure, NYHA class 1, unspecified congestive heart failure chronicity ([facility]/HCC) [facility]* Diagnosis Primary hypertension ([facility])- Primary Unspecified essential hypertension Chronic diastolic congestive heart failure, NYHA class 1 ([facility]) Mixed hyperlipidemia ([facility]) Mixed hyperlipidemia Hypokalemia Hypopotassemia Hypomagnesemia Disorders of magnesium metabolism Type 2 diabetes mellitus with stage 4 chronic kidney disease, without long-term current use of insulin ([facility]) Type 2 diabetes mellitus with hyperglycemia, without long-term current use of insulin ([facility]) Polypharmacy Issue of repeat prescriptions Edema, unspecified type [facility] encounter [facility]* Diagnosis Persistent disorder of initiating or maintaining sleep Vascular dementia with behavior disturbance ([facility]) Chronic organic brain syndrome Unspecified nonpsychotic mental disorder following organic brain damage Encounter for examination following treatment at hospital Encounter for staple removal Fall from standing, subsequent encounter Laceration of scalp, subsequent encounter Closed fracture of nasal bone with routine healing, subsequent encounter Stage 3b chronic kidney disease (HCC) ([facility]) Polypharmacy Issue of repeat prescriptions Overweight (BMI 25.0-29.9) Overweight [facility]* Diagnosis Acute bacterial conjunctivitis of both eyes- Primary Laceration of scalp, subsequent encounter Fall from standing, subsequent encounter Closed fracture of nasal bone with routine healing, subsequent encounter Encounter for examination following treatment at hospital Encounter for staple removal Polypharmacy Issue of repeat prescriptions Overweight (BMI 25.0-29.9) Overweight Acute conjunctivitis, unspecified acute conjunctivitis type, unspecified laterality [facility]* Diagnosis Generalized weakness Frequent falls History of falling Polypharmacy Issue of repeat prescriptions Type 2 diabetes mellitus with hyperglycemia, without long-term current use of insulin ([facility]) BMI 23.0-23.9, adult documented in [facility]* Diagnosis Generalized weakness- Primary Frequent falls [facility]* Diagnosis Anxiety associated with depression- Primary Dysthymic disorder Primary hypertension ([facility]) Unspecified essential hypertension Chronic diastolic congestive heart failure, NYHA class 1 ([facility]) Edema, unspecified type Acquired hypothyroidism ([facility]) Unspecified hypothyroidism [facility]* Diagnosis Onset Date Resolution Status Admit Date Anemia of renal disease acuteMay 2024 1:55pmAsymptomatic bacteriuriaacuteMay 2024 1:55pmCKD (chronic kidney disease) stage 4, GFR 15-29 ml/minacuteMay 2024 1:55pm HyperlipidemiaacuteMay 2024 1:55pmHypertensive chronic kidney disease with stage 1 through stage 4 chronic kiacuteMay 2024 1:55pmSecondary hyperparathyroidismacuteMay 2024 1:55pmType 2 diabetes mellitus with diabetic chronic kidney diseaseacuteMay 2024 1:55pm [facility] Work Phone: Evaluation note* Diagnosis Seborrheic keratosis- Primary History of basal cell carcinoma Personal history of other malignant neoplasm of skin Lentigines Other seborrheic dermatitis documented in this encounter [facility] HealthcareEvaluation [facility]* Diagnosis Mitral valve stenosis, unspecified etiology documented in this encounter [facility]Evaluation [facility]* Diagnosis Hypermagnesemia Disorders of magnesium metabolism [facility] Diagnosis Chronic diastolic congestive heart failure, NYHA class 1 ([facility])- Primary Primary hypertension Unspecified essential hypertension Edema, unspecified type Anxiety associated with depression Dysthymic disorder documented in this encounter [facility] HealthcareEvaluation note* Diagnosis Primary hypertension- Primary Unspecified essential hypertension Mixed hyperlipidemia Hypokalemia Hypopotassemia Type 2 diabetes mellitus with stage 3b chronic kidney disease, without long-term current use of insulin ([facility]) Anemia due to stage 3b chronic kidney disease ([facility]) Microalbuminuria Proteinuria Paroxysmal atrial fibrillation (HCC) Atrial fibrillation Chronic diastolic congestive heart failure, NYHA class 1 ([facility]) Acute cystitis without hematuria Chronic pruritus Polypharmacy Issue of repeat prescriptions documented in this encounter [facility] HealthcareEvaluation noteNo assessment information availableMarymount Hospital Work Phone: History and physical note* Clinical Note Date No Information [facility] Work Phone: Hospital Discharge instructions* Attachments The following attachments cannot be sent through Care Everywhere. * Stroke: Know the Signs and BE FAST: Video (Bulgarian) documented in this encounterBon Western Reserve HospitalInstructionsNot on file documented in this encounterProCleveland Clinic [facility] SystemInstructionsNot on file documented in this encounterRegency Hospital Company SystemProgress note* Clinical Note Date No Information [facility] Work Phone: Repuyc for referral (narrative)* Reason For Referral No Information [facility] Work Phone: Reclcr for referral (narrative)No reason for referral information availableMarymount Hospital Work Phone: Reason for visit Narrative* Rehabilitation - Outpatient (Routine) - AuthorizedSpecialtyDiagnoses / ProceduresReferred By ContactReferred To ContactPhysical Therapy Diagnoses Generalized weakness Frequent falls Procedures CO OFFICE/OUTPATIENT NEW HIGH MDM 60 MINUTES Grayson Hernandez MD [address] [place] [address] Phone: tel: fax:[phone] Roshan Mayfield, PT [address] [place] [address] Phone: tel: fax: Referral IDStatusReasonStart DateExpiration DateVisits RequestedVisits [id number] Specialty Services Required [facility] for [facility] Narrative* Imaging (Routine) - ClosedSpecialty Diagnoses / ProceduresReferred By ContactReferred To Contact Diagnoses Mitral valve stenosis, unspecified etiology Procedures Echo (TTE) complete (PRN contrast/bubble/strain/3D) CO ECHO TTHRC R-T 2D W/WOM-MODE COMPL SPEC&COLR D CO TTE W OR WO FOL WCON,DOPPLER Anshul Irizarry MD [address] [place] [address] Phone: tel: fax: Referral IDStatusReasonStart DateExpiration DateVisits RequestedVisits [id number]/17/[id number]/ [facility] Discharge Instructions * Instructions* Ely Penny RN - 06/06/2019 Post Procedure Site Care [...] will Yes, copy in chart Spouse Martha [id number] Admitting Physician: Caro Teresa MD PCP: Grayson Hernandez MD Discharging Nurse: aniya Discharging Hospital Unit/Room#: 1006/1006-01 Discharging Unit Phone Number: [phone] Emergency Contact: Extended Emergency Contact Information Primary Emergency Contact: DAHLIA MCCLAIN Mobile Relation: Child Secondary Emergency Contact: MARTHA MCCLAIN Address: [address] [place] [address] Mobile Relation: Spouse Past Surgical History: Past Surgical History: Procedure Laterality Date CABG WITH AORTIC VALVE REPLACEMENT N/A 07/03/2019 CABG CORONARY ARTERY BYPASS X3; AORTIC VALVE REPLACEMENT WITH 21MM INTUITY VALVE, ON PUMP, SWAN SHAWN, LOVE performed by Caro Teresa MD at [facility] CVOR CARDIAC CATHETERIZATION Bilateral 06/06/2019 Possible bypass & aortic valve replacement CHOLECYSTECTOMY COLONOSCOPY CORONARY ARTERY BYPASS GRAFT N/A 07/03/2019 CABG CORONARY ARTERY BYPASS REDO performed by Caro Teresa MD at [facility] CVMA GALLBLADDER SURGERY HC PICC POWERPICC DOUBLE 07/13/2019 HYSTERECTOMY STERNUM DEBRIDEMENT N/A 07/04/2019 STERNUM WASHOUT WITH STERNUM CLOSURE WITH STERNALOCK 360, 12 SELF-DRILLING LOCKING SCREWS 12MM, 4 SELFDRILLING LOCKING SCREWS 14MM. performed by Caro Teresa MD at 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 PHYSICIAN [...] your doctor if you can take an mxkj-etu-qzxhrzk medicine. ? Do not take aspirin, ibuprofen [...] irregular heartbeat. After you call 911, the operator prefinish may tell you to chew 1 adult-strength [...] Where can you learn more? Go to [email or web address] and sign in to your [employer] account. Enter F759 in the Search Health Information box to learn more about Coronary Artery Bypass Graft: What to Expect atHome. If you do not have an account, please click on the Sign Up Now link. Current as of: August 29, 2018 Content Version: 12.3 7523-8942 [employer]. Care instructions adapted under license by [employer]. If youhave questions about a medical condition or this instruction, always ask your healthcare professional. [employer] disclaims any warranty or liability for your [...] Surgery in 2 week. Call office at [phone] for any problems. * Attachments The following attachments cannot be sent through Care Everywhere. * CABG (Coronary Artery Bypass Graft Surgery): General Info (Bulgarian) * Aortic Valve Replacement Surgery: Post-op (Bulgarian) * Antiplatelets After Ischemic Stroke: General Info (Bulgarian) * Elevated INR (Bulgarian) documented in this encounter Advance Directives TypeDate RecordedPatient RepresentativeExplanationACP-Advance Directive07/25/2019 1:29 PMDate ActivatedDate InactivatedComments09/01/2023 2:08 PM09/01/2023 5:20 PM Date ActivatedDate InactivatedComments09/01/2023 2:08 PM09/01/2023 2:08 PMDate ActivatedDate InactivatedComments07/03/2019 5:27 PM07/24/2019 7:14 PMTypeDate RecordedPatient RepresentativeExplanationAdvance Directives and Living Will 06/06/2019 7:47 AMCode StatusDate ActivatedDate InactivatedCommentsFull Code 06/06/2019 9:00 AMTypeDate RecordedPatient RepresentativeExplanationAdvance Directives and Living WillPower of AttorneyTypeDate RecordedPatient RepresentativeExplanationAdvance Directives and Living WillPower of AttorneyCode StatusDate ActivatedDate InactivatedCommentsFull Code07/03/2019 5:27 PMTypeDate RecordedPatient RepresentativeExplanationACP-Advance DirectiveACP-Advance Directive07/25/2019 1:29 PMACP-Power of AttorneyCode StatusDate ActivatedDate InactivatedCommentsFull Code07/03/2019 5:27 PM07/24/2019 7:14 PMTypeDate Recorded Patient RepresentativeExplanationAdvance Directives and Living WillAdvance Directives and Living Will07/25/2019 1:29 PMPower of AttorneyTypeDate Recorded Patient RepresentativeExplanationAdvance Directives and Living Will06/06/2019 7:47 AMCode StatusDate ActivatedDate InactivatedCommentsFull Code06/06/2019 9:00 AMTypeDate RecordedPatient RepresentativeExplanationACP-Advance DirectiveACP- Power of AttorneyACP-Advance Directive07/25/2019 1:29 PMTypeDate RecordedPatient RepresentativeExplanationPower of Attorney12/15/2022 9:23 AMLiving WillAdvance Directives and Living Will12/15/2022 9:22 AMCode StatusDate ActivatedDate InactivatedCommentsFull Code09/01/2023 2:08 PMCode StatusDate ActivatedDate InactivatedCommentsFull Code09/01/2023 2:08 PM09/01/2023 2:08 PMFull Code07/03/2019 5:27 PM07/24/2019 7:14 PMCode StatusDate ActivatedDate InactivatedCommentsFull Code09/01/2023 2:08 PM09/01/2023 5:20 PM Advance Directive Response Recorded Date/ Time Advance Directives No September 29 6:54am Code StatusDate ActivatedDate InactivatedCommentsFull Code11/20/2022 12:32 PM 11/23/2022 8:03 PMCode StatusDate ActivatedDate InactivatedCommentsFull Code 12/31/2021 11:23 AM01/04/2022 10:45 PM Directive Yes / No Effective Date File Name No Information TypeDate RecordedPatient RepresentativeExplanationPower of Attorney12/15/2022 9:23 AMLiving WillAdvance Directives and Living Will12/15/2022 9:22 AM Advance Directive Response Recorded Date/ Time Advance Directives No September 29 7:54am TypeDate RecordedPatient RepresentativeExplanationACP-Advance Directive07/25/2019 1:29 PMDate ActivatedDate InactivatedComments09/01/2023 2:08 PM09/01/2023 5:20 PM Date ActivatedDate InactivatedComments09/01/2023 2:08 PM09/01/2023 2:08 PMDate ActivatedDate InactivatedComments07/03/2019 5:27 PM07/24/2019 7:14 PM Summary Purpose Family History Relationship Condition Age at Onset Recorded Date/T khoa brother Hypertension Unknown sisterHypertensionUnknownfatherDeceasedUnknownMalignant neoplasmUnknownfamily memberDeceasedUnknownmotherMotor vehicle accidentUnknownDeceasedUnknownHistory of strokeUnknown Family Member Type Diagnosis Age At Onset Father Problem (finding) HBP BrotherProblem (finding)Peripheral vascular diseaseFatherProblem (finding)Heart DiseasemultipleProblem (finding)HBPMotherProblem (finding)diabetes mellitus in first degree relativeBrotherProblem (finding)renal failure syndrome Reason for Referral StatusReasonSpecialtyDiagnoses / ProceduresReferred By ContactReferred To ContactClosedRadiology Diagnoses CAD, multiple vessel Pre-op testing Procedures CT Chest WO Contrast CT Chest WO Contrast HC CT CHEST W/O CONTRAST Vasiliy Bethea, DIVER ASSISTANT - CNA CAREGIVER [address] [place] [address] StatusReasonSpecialtyDiagnoses / ProceduresReferred By ContactReferred To ContactOpen Specialty Services Required Cardiac Rehabilitation Diagnoses CAD, multiple vessel Stvz Car [address] [place] [address] StatusReasonSpecialtyDiagnoses / ProceduresReferred By ContactReferred To ContactOpenCardiology Diagnoses Kidney insufficiency Hypertension, unspecified type Shortness of breath Hyperlipidemia, unspecified hyperlipidemia type Vitamin D deficiency disease Other specified diabetes mellitus with other specified complication, unspecified whether fpc insulin use (HCC) Procedures EKG 12 Lead Anshul Irizarry MD [address] [place] [address] StatusReasonSpecialtyDiagnoses / ProceduresReferred By ContactReferred To ContactOpenCardiology Diagnoses Aortic valve stenosis, etiology of cardiac valve disease unspecified Shortness of breath Hypertension, unspecified type Hyperlipidemia, unspecified hyperlipidemia type Vitamin D deficiency disease Procedures EKG 12 Lead Anshul Irizarry MD [address] [place] [address] StatusReasonSpecialtyDiagnoses / ProceduresReferred By ContactReferred To ContactPending ReviewVascular Lab Diagnoses CAD, multiple vessel Pre-op testing Bilateral carotid bruits Procedures VL DUP CAROTID BILATERAL VL DUP CAROTID BILATERAL HC EXTRACRANIAL BILAT STUDY Vasiliy Bethea, DIVER ASSISTANT - CNA CAREGIVER [address] [facility] [address] [place] [address] [facility] [address] [place] [address] StatusReasonSpecialtyDiagnoses / ProceduresReferred By ContactReferred To ContactPending ReviewCardiology Diagnoses Hypertension, unspecified type Hyperlipidemia, unspecified hyperlipidemia type Other specified diabetes mellitus with other specified complication, unspecified whether ad terminal makeup operator insulin use (HCC) Vitamin D deficiency disease Procedures EKG 12 Lead [facility] [address] [place] [address] SpecialtyDiagnoses / ProceduresReferred By ContactReferred To Contact Diagnoses Palpitations Procedures Cardiac event monitor Anshul Irizarry MD [address] [place] [address] Referral IDStatJacobvincenzo DateExpiration DateVisits RequestedVisits [id number] / Procedures Referred By ContactReferred To Contact Diagnoses SOB (shortness of breath) Procedures Nuclear stress test with myocardial perfusion Anshul Irizarry MD [address] [place] [address] Referral IDStaJose DateExpiration DateVisits RequestedVisits [id number]/7/20246/ Assessments Diagnosis CAD, multiple vessel Coronary atherosclerosis of unspecified type of vessel, yuhaaviatam or graft Pre-op testing Preoperative examination, unspecified Diagnosis CAD, multiple vessel- Primary Coronary atherosclerosis of unspecified type of vessel, yuhaaviatam or graft S/P AVR (aortic valve replacement) [...] mellitus with other specified complication, unspecified whether fpc insulin use (HCC) Diagnosis Aortic valve stenosis, etiology of cardiac valve disease unspecified Shortness of breath Hypertension, unspecified type Hyperlipidemia, unspecified hyperlipidemia type Vitamin D deficiency disease Unspecified vitamin D deficiency Diagnosis CAD, multiple vessel Coronary atherosclerosis of unspecified type of vessel, yuhaaviatam or graft Pre-op testing Preoperative examination, unspecified Bilateral carotid bruits Hospital Course * Vasiliy Bethea APRN - CNA CAREGIVER - 07/24/2019 9:09 AM EST [facility] Cardiothoracic Surgery Discharge Summary Patient's Name/Date of : Eleanor Mcclain / 1950 (68 y.o.) Admission Date: 07/03/2019 5:13 AM Discharge Date: 07-24-19 Discharge Physician: Discharge Unit: CAR1 Discharge condition: fair Disposition: LTAC Reason For Admission: CABG + AVR HPI: Eleanor Mcclain is a 68 y.o. female who presents to [facility] for a CABG x3 and AVR. Brief Review of Hospital Course: Patient was admitted to the hospital on July 03, 2019 for CABGx3 and AVR. In the middle of the night on July 03-2019 patient required a fixture of 1 of [...] planning beginning and patient going to LTAC [place] Patient started on 5 mg of Coumadin [...] Chronic kidney disease CVA (cerebral vascular accident) ([facility]) 2011 no deficits Diabetes mellitus ([facility]) Dr. Richards Hyperlipidemia Hypertension Dr. Richards Kidney failure Wears dentures full upper plate, lower partial Wears prescription eyeglasses Wellness examination Dr. Richards seen in 03/2019 Past Surgical History: Procedure Laterality Date CABG WITH AORTIC VALVE REPLACEMENT N/A 07/03/2019 CABG CORONARY ARTERY BYPASS X3; AORTIC VALVE REPLACEMENT WITH 21MM INTUITY VALVE, ON PUMP, SWAN SHAWN, LOVE performed by Caro Teresa MD at [facility] CVOR CARDIAC CATHETERIZATION Bilateral 06/06/2019 Possible bypass & aortic valve replacement CHOLECYSTECTOMY COLONOSCOPY CORONARY ARTERY BYPASS GRAFT N/A 07/03/2019 CABG CORONARY ARTERY BYPASS REDO performed by Caro Teresa MD at [facility] CVOR GALLBLADDER SURGERY HC PICC POWERPICC DOUBLE 07/13/2019 HYSTERECTOMY STERNUM DEBRIDEMENT N/A 07/04/2019 STERNUM WASHOUT WITH STERNUM CLOSURE WITH STERNALOCK 360, 12 SELF-DRILLING LOCKING SCREWS 12MM, 4 SELFDRILLING LOCKING SCREWS 14MM. performed by Caro Teresa MD at [facility] CVOR Allergies Allergen Reactions Latex [...] file Gets together: Not on file Attends sabianist service: Not on file Active member of [...] Your Medications These medications were sent to [address] - [phone] - F [phone] [facility] [address] amiodarone 200 MG tablet atorvastatin 40 MG [...] Surgery in 2 week. Call office at [phone] for any problems. Follow up with PCP and cardiology in 1-2 weeks. [place] [facility] will manage coumadin and INR while [...] BB, and Statin therapy per protocol. VASILIY BETHEA CNP documented in this encounter History of Present Illness * Ligia Ybarra, LUIZ - 07/24/2019 4:31 PM EST Occupational Therapy Facility/Department: 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 Explosive Expert Strength-Not measured Nutrition Risk Level: Moderate Nutrient Needs: Estimated Daily Total Kcal: 1.2-1.4 ~>3940-0578 kcals/d Estimated Daily Protein (g): 1.2-1.4 gm/kg [...] 36 lb wt gain x 1 wk [place] Body Wt: 110 lb 3.7 oz (50 kg), % [place] Body 159% adm/ideal BMI Classification: BMI 25.0 [...] Bowel Function Contact Number: [phone] * Titus Wilkerson MD - 07/24/2019 12:08 PM EST [facility] - Progress Note Today's Date and Time: [...] improved response time, AA Infection Control Recommendations [place] Precautions Antimicrobial Stewardship Recommendations Discontinuation of therapy [...] History: Diagnosis Date Aortic stenosis - in [place] CAD (coronary artery disease) Chronic kidney disease CVA (cerebral vascular accident) ([facility]) 2011 no deficits Diabetes mellitus ([facility]) Dr. Richards Hyperlipidemia Hypertension Dr. Richards Kidney [...] LOVE performed by Caro Teresa MD at [facility] CVOR CARDIAC CATHETERIZATION Bilateral 06/06/2019 Possible bypass & aortic valve replacement CHOLECYSTECTOMY COLONOSCOPY CORONARY ARTERY BYPASS GRAFT N/A 07/03/2019 CABG CORONARY ARTERY BYPASS REDO performed by Caro Teresa MD at [facility] CVOR GALLBLADDER SURGERY HC PICC POWERPICC DOUBLE 07/13/2019 HYSTERECTOMY STERNUM DEBRIDEMENT N/A 07/04/2019 STERNUM WASHOUT WITH STERNUM CLOSURE WITH STERNALOCK 360, 12 SELF-DRILLING LOCKING SCREWS 12MM, 4 SELFDRILLING LOCKING SCREWS 14MM. performed by Caro Teresa MD at [facility] CVOR Medications: warfarin (COUMADIN) daily [...] file Gets together: Not on file Attends sabianist service: Not on file Active member of [...] replaced inverted T waves in Anterolateral leads 2 CXR EXAMINATION: ONE XRAY VIEW OF THE [...] or atelectasis. 3. Interval extubation. Medical Decision Uqwfcj-Gkryvxll-Hpihg: 07/17/2019 10:16 AM - [place], [facility] Incoming Lab Results From [facility] [employer] Specimen Information: Sputum, Suctioned Component Collected Lab Specimen Description 07/15/2019 11:48 AM [facility] - [place] .SUCTIONED SPUTUM Special Requests 07/15/2019 11:48 AM [facility] - [place] NOT REPORTED Direct Exam 07/15/2019 11:48 AM [facility] - [place] < 10 EPITHELIAL CELLS/LPF Direct Exam 07/15/2019 11:48 AM [facility] - [place] >25 NEUTROPHILS/LPF Direct Exam Abnormal 07/15/2019 11:48 AM [facility] - [place] PREDOMINANT ORGANISM: GRAM NEGATIVE RODS Direct Exam Abnormal 07/15/2019 11:48 AM [facility] - [place] MIXED BACTERIAL MORPHOTYPES ALSO PRESENT ON GRAM STAIN. Culture Abnormal 07/15/2019 11:48 AM [facility] - [facility] YEAST, NOT SILVIO ALBICANS OR SILVIO DUBLINIENSIS HEAVY GROWTH Culture 07/15/2019 11:48 AM [facility] - [place] NORMAL RESPIRATORY ROSEANNA SCANT GOWTH 07/16/2019 8:17 AM - [place], pn Incoming Lab Results From [facility] [employer] [facility] Specimen Information: Blood Component Collected Lab Specimen Description 07/15/2019 1:54 PM [facility] - [place] .BLOOD Special Requests 07/15/2019 1:54 PM [facility] - [place] L ARM 10 CC Culture 07/15/2019 1:54 PM [facility] - [place] NO GROWTH 17 HOURS 07/13/2019 1:00 PM - [place], pn Incoming Lab Results From [facility] [employer] Specimen Information: Tracheal Aspirate Component Collected Lab Specimen Description 07/11/2019 4:58 PM [facility] - [place] .TRACHEAL ASPIRATE Special Requests 07/11/2019 [...] data were reviewed Discussed with nursing Staff, estate planner Infection Control and Prevention measures reviewed All prior entries were reviewed Administer medications as ordered Prognosis: Guarded Discharge planning reviewed Follow up as outpatient. Thank you for allowing us to participate in the care of this patient. Please call with questions. Titus Wilkerson MD Pager: - Office: * Alannah Love - 07/24/2019 11:40 AM EST Speech Language Pathology Speech Language Pathology [facility] Cognitive Treatment Note Date: 07/24/2019 Patient [...] max verbal cues Problem Solving/Reasoning: Category Members [place]: 12/20 independently, increased to 20/20 with min verbal cues Plan: [x] Continue ST services [] Discharge from ST: Discharge recommendations: Further therapy recommended at discharge. Completed by Alannah Love, Insurance Territory Manager Clinician Co-signed by Ambika Jang M.A.CCC/SUBASSEMBLY ASSEMBLER * Nicola Dutta PTA - 07/24/2019 10:52 AM EST Physical Therapy Facility/Department: [facility] CAR 1 Daily Treatment Note [...] Minutes 30 NICOLA DUTTA PTA * Rodrigo Pattne MD - 07/23/2019 4:24 PM EST Pulmonary critical care progress note. Date and time: 07/23/2019 4:24 PM Patient's name: Eleanor Mcclain Patient's account/billing number: [id number] Patient's Date of : 1950 Age: 68 [...] PRN ABG Lab Results Component Value Date ZDS5WPQ 31 07/21/2019 FIO2 15.0 07/21/2019 Laboratory findings: Complete Blood Count: Recent Labs 07/21/19 0339 07/22/1940807/23/19 0638 WBC 15.1* 17.3* 10.8 HGB 8.5* 9.1* 9.1* HCT 28.5* 30.6* 31.2* PLT 287 291 276 Last 3 Blood Glucose: Recent Labs 07/22/19 04007/23/19 0638 07/23/19 0705 GLUCOSE 105* 88 95 PT/INR: Lab Results Component Value Date PROTIME 13.6 07/23/2019 INR 1.3 07/23/2019 PTT: Lab Results Component Value Date APTT 67.2 07/23/2019 Comprehensive Metabolic Profile: Recent Labs 07/22/19 04007/22/19205407/23/19 0638 07/23/19 0705 [...] deep breathing Sec clearance Pt ot * Ttius Wilkerson MD - 07/23/2019 3:55 PM EST [facility] - Progress Note Today's Date and Time: [...] commands, oriented x 3 Infection Control Recommendations [place] Precautions Antimicrobial Stewardship Recommendations Discontinuation of therapy [...] Chronic kidney disease CVA (cerebral vascular accident) ([facility]) 2011 no deficits Diabetes mellitus ([facility]) Dr. Richards Hyperlipidemia Hypertension Dr. Richards Kidney [...] LOVE performed by Caro Teresa MD at [facility] CVOR CARDIAC CATHETERIZATION Bilateral 06/06/2019 Possible bypass & aortic valve replacement CHOLECYSTECTOMY COLONOSCOPY CORONARY ARTERY BYPASS GRAFT N/A 07/03/2019 CABG CORONARY ARTERY BYPASS REDO performed by Caro Teresa MD at [facility] CVOR GALLBLADDER SURGERY HC PICC POWERPICC DOUBLE 07/13/2019 HYSTERECTOMY STERNUM DEBRIDEMENT N/A 07/04/2019 STERNUM WASHOUT WITH STERNUM CLOSURE WITH STERNALOCK 360, 12 SELF-DRILLING LOCKING SCREWS 12MM, 4 SELFDRILLING LOCKING SCREWS 14MM. performed by Caro Teresa MD at [facility] [facility] Medications: bumetanide 2 mg Oral BID enoxaparin [...] file Gets together: Not on file Attends sabianist service: Not on file Active member of [...] replaced inverted T waves in Anterolateral leads 2- CXR EXAMINATION: ONE XRAY VIEW OF THE [...] or atelectasis. 3. Interval extubation. Medical Decision Vlwfzu-Kybvqfzo-Vudbx: 07/17/2019 10:16 AM - [place], [place] Incoming Lab Results From [facility] Specimen Information: Sputum, Suctioned Component Collected Lab [...] - [place], [place] Incoming Lab Results From [facility] Specimen Information: Blood Component Collected Lab Specimen Description 07/15/2019 1:54 PM [facility] .BLOOD Special Requests 07/15/2019 1:54 PM [facility] L ARM 10 CC Culture 07/15/2019 1:54 PM [facility] NO GROWTH 17 HOURS 07/13/2019 1:00 PM - [place] Incoming Lab Results From [facility] Specimen Information: Tracheal Aspirate Component Collected Lab [...] data were reviewed Discussed with nursing Staff, estate planner Infection Control and Prevention measures reviewed All prior entries were reviewed Administer medications as ordered Prognosis: Guarded Discharge planning reviewed Follow up as outpatient. Thank you for allowing us to participate in the care of this patient. Please call with questions. Titus Wilkerson MD Pager: - Office: * Aislinn Kaye OTA - 07/23/2019 2:30 PM EST Occupational Therapy Facility/Department: [facility] CAR 1 Daily Treatment Note [...] total tx time ABIMBOLA ALICEA/Ada * Meseret Arechiga APRN - DENTAL PROFESSIONAL - 07/23/2019 2:13 PM EST Daily Progress [...] occlusion left A1 MONSTER, 90% stenosis R ADJUSTER LEADER. Results of imaging reviewed at length with [...] of the P2 segment of the right ADJUSTER LEADER. Additional 80% focal stenosis along the P2 segments of the bilateral admissions consultant. 40% stenosis at the origins of the [...] of the P2 segment of the right ADJUSTER LEADER. Additional 80% focal stenosis along the P2 segments of the bilateral admissions consultant. 40% stenosis at the origins of the [...] of the P2 segment of the right ADJUSTER LEADER. Additional 80% focal stenosis along the P2 segments of the bilateral admissions consultant. 40% stenosis at the origins of the bilateral internal carotid arteries. The results were sent to radiology results communication. Labs and Images reviewed with: [] Dr. Wilder Bishop [x] Dr. Landen Lua [] Dr. Alan Hopkins [] There are no new interval images [...] MARICRUZ Guaman CNP Neuro Critical Care Pager [phone] 07/23/2019 2:13 PM * Kelli Keen, SUBASSEMBLY ASSEMBLER - 07/23/2019 11:31 AM EST Speech Language Pathology Speech Language Pathology [facility] Speech Language Treatment Note Date: 07/23/2019 [...] ST: Discharge recommendations: [] Inpatient Rehab [] Nursing Home Facility [] Outpatient Therapy [] Follow up at trauma clinic [x] Other: Treatment completed by: Kelli Keen M.A. [facility]-SUBASSEMBLY ASSEMBLER * Kelli Keen SLP - 07/23/2019 11:27 AM EST Speech Language Pathology Speech Language Pathology [facility] Dysphagia Treatment Note Date: 07/23/2019 Patient s Name: Eleanor Mcclain Diagnosis: dysphagia Patient Active Problem List Diagnosis Code CAD, multiple vessel I25.10 Encephalopathy G93.40 Acute cerebral infarction (HCC) I63.9 Seizure ([facility]) R56.9 Encephalopathy, unspecified G93.40 Ischemic stroke ([facility]) I63.9 Chronic a-fib I48.20 Anticoagulated Z79.01 Acute postoperative respiratory failure ([facility]) J95.821 Cervical stenosis of spinal canal M48.02 [...] ST: Discharge recommendations: [] Inpatient Rehab [] Nursing Home Facility [] Outpatient Therapy [] Follow up at trauma clinic [x] Other: To be determined at discharge. Treatment completed by: Kelli Keen M.A. CCC-SUBASSEMBLY ASSEMBLER * Nghia Marmolejo MD - 07/23/2019 10:20 AM EST Nephrology [...] % solution, PRN LABS CBC: Recent Labs 07/21/1933807/22/1940807/23/19 06 WBC 15.1* 17.3* 10.8 RBC 2.97* 3.21* 3.20* HGB 8.5* 9.1* 9.1* HCT 28.5* 30.6* 31.2* MCV 96.0 95.3 97.5 MCH 28.6 28.3 28.4 MCHC 29.8 29.7 29.2 RDW 16.0* 15.5* 15.6* PLT 287 291 276 MPV 10.0 9.7 9.9 BMP: Recent Labs 07/22/1940807/22/19205407/23/19 0638 07/23/19 0705 NA 144 -- 144 143 K 3.7 3.7 4.0 3.8 CL 106 -- 104 104 CO2 24 -- 26 27 BUN 45* -- 34* 33* CREATININE 1.49* -- 1.29* 1.28* GLUCOSE 105* -- 88 95 CALCIUM 8.9 -- 9.0 8.9 PHOSPHORUS: Recent Labs 07/23/19 0638 PHOS 2.9 MAGNESIUM: Recent Labs 07/21/1933807/22/1940807/23/19 06 MG 3.1* 2.8* 2.6 RENEE: Lab Results Component Value Date RENEE NEGATIVE 07/05/2019 SPEP: Lab Results Component Value [...] 07/23/2019 9:52 AM EST Physical Therapy Facility/Department: [place] [address] Re-Evaluation Assessment NAME: Eleanor Mcclain : 1950 [...] AD at baseline) Transfer Assistance: Independent Active Mussel Farmer: Yes Mode of Transportation: Car 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 First STS performed with BUE FIRE EXTINGUISHER REPAIRER INSPECTOR, second performed with UE support on RW. [...] Group Co-treatment Time In 903 Time Out 0928 Minutes 24 Timed Code Treatment Minutes: 11 Minutes Anne Alexandre PT * ShineanamariaRaisa - 07/23/2019 9:06 AM EST Pulmonary critical care progress note. Date and time: 07/23/2019 09:05 AM Patient's name: Eleanor Mcclain Patient's account/billing number: [id number] Patient's Date of : 1950 Age: 68 [...] History: Diagnosis Date Aortic stenosis - in [place] CAD (coronary artery disease) Chronic kidney disease CVA (cerebral vascular accident) ([facility]) 2011 no deficits Diabetes mellitus ([facility]) Dr. Richards Hyperlipidemia Hypertension Dr. Richards Kidney failure Wears dentures full upper plate, lower partial Wears prescription eyeglasses Wellness examination Dr. Richards seen in 03/2019 Past Surgical History: Procedure Laterality Date CABG WITH AORTIC VALVE REPLACEMENT N/A 07/03/2019 CABG CORONARY ARTERY BYPASS X3; AORTIC VALVE REPLACEMENT WITH 21MM INTUITY VALVE, ON PUMP, SWAN SHAWN, LOVE performed by Caro Teresa MD at [facility] CVOR CARDIAC CATHETERIZATION Bilateral 06/06/2019 Possible bypass & aortic valve replacement CHOLECYSTECTOMY COLONOSCOPY CORONARY ARTERY BYPASS GRAFT N/A 07/03/2019 CABG CORONARY ARTERY BYPASS REDO performed by Caro Teresa MD at [facility] CVOR GALLBLADDER SURGERY HC PICC POWERPICC DOUBLE 07/13/2019 HYSTERECTOMY STERNUM DEBRIDEMENT N/A 07/04/2019 STERNUM WASHOUT WITH STERNUM CLOSURE WITH STERNALOCK 360, 12 SELF-DRILLING LOCKING SCREWS 12MM, 4 SELFDRILLING LOCKING SCREWS 14MM. performed by Caro Teresa MD at [facility] CVOR Allergies: Allergies Allergen Reactions Latex Anaphylaxis [...] ABGs: No results found for: PHART, PO2ART, RJD1IVJ INR: Recent Labs 07/21/1933807/22/1940807/23/19 06 INR 1.2 1.2 1.3 Thyroid: Lab Results [...] of the P2 segment of the right ADJUSTER LEADER. Additional 80% focal stenosis along the P2 segments of the bilateral admissions consultant. 40% stenosis at the origins of the [...] of the P2 segment of the right ADJUSTER LEADER. Additional 80% focal stenosis along the P2 segments of the bilateral admissions consultant. 40% stenosis at the origins of the [...] of the P2 segment of the right ADJUSTER LEADER. Additional 80% focal stenosis along the P2 segments of the bilateral admissions consultant. 40% stenosis at the origins of the [...] this chart was generated using voice recognition Apruve dictation software. Although every effort was made to ensure the accuracy of this automated equity holder, some errors in equity holder may have occurred. Raisa Loyola MS4 [facility]) 07/22/2019, 11:05 AM Raisa Loyola 07/23/2019, 9:06 AM * Dominguez Plummer PA - 07/23/2019 7:[address] surgical issues request transfer to medicine service. Appreciate assistance. Dominguez Plummer * Cole Arteaga DO - 07/23/2019 7:03 AM EST Shirley Supervisor [employer] Progress Note Date: 07/23/2019 Patient name: Eleanor [...] chloride 250 mL infusion 16 Units/kg/hr (07/23/19 030) dextrose CBC: Recent Labs 07/21/1933807/22/19408 WBC 15.1* [...] hours. Invalid input(s): LDLCALCU INR: Recent Labs 07/21/19 0339 07/22/19 0409 INR 1.2 1.2 Objective: Vitals: BP (!) 148/58 Pulse 55 Temp 98 F (36.7 C) (Axillary) Resp 16 Ht 5' 2 (1.575 m) Wt 175 lb 11.3 oz (79.7 kg) SpO2 96% BMI 32.14 kg/m General appearance: extubated HEENT: Head: Normocephalic, atraumatic without any obvious abnormalities. Lungs: Coarse breath sound b/l Heart: david, no murmurs, mechanical click Abdomen: soft, nontender [...] of the P2 segment of the right ADJUSTER LEADER. Additional 80% focal stenosis along the P2 segments of the bilateral admissions consultant. 40% stenosis at the origins of the [...] management per CT surgery Kanwal Michel MD, Lumber Carrier Thank you for allowing us to participate in Eleanor Mcclain's care. Will follow with you. Attending Physical Scientist Addendum: I have reviewed and performed the [...] any questions. Cole Arteaga DO, FACC, GRACIA Mary Supervisor [employer] [facility] * Jaimee Estes RN - 07/22/2019 5:46 [...] All monitor alarms maintained. * Jacqueline Rudd, SUBASSEMBLY ASSEMBLER - 07/22/2019 12:02 PM EST Speech Language Pathology Facility/Department: [facility] CAR 1 CLINICAL BEDSIDE SWALLOW [...] 2016, she had mild aortic stenosis with [id number] mitral and tricuspid regurgitation, with normal ejection fraction. On 07/12/2017, she had another echocardiogram that showed an EF of 55% with severe dilatation of the left atrium and right atrium, and right ventricle normal.She had moderate aortic stenosis, read on an echocardiogram in [place]. Her last echocardiogram was on 03/30/2019, also at [place]. This showed normal EF of 55% to [...] This was noticed when she went to [facility] in 06/2018 and had difficulty with [...] Moist (Dysphagia II) diet with Mildly Thick ([place] Thick) liquids as evidenced by no overt [...] more diet consistencies restricted Treatment Plan Requires SUBASSEMBLY ASSEMBLER Intervention: Yes Duration/Frequency of Treatment: 2-3x per week D/C Recommendations: Further therapy recommended at discharge. Recommended Diet and Intervention Diet Solids Recommendation: Dysphagia Minced and Moist (Dysphagia II) Liquid Consistency Recommendation: Mildly Thick ([place]) Recommended Form of Meds: PO Recommendations: Dysphagia [...] Minced and Moist (Dysphagia II);Dysphagia Pureed (Dysphagia I);[place] - teaspoon;Thin - teaspoon Pain Level: 0 [...] and agree with results and recommendations: Patient;Family member;collarette separator member consulted: children Education Patient Education: yes Patient Education Response: Verbalizes understanding Therapy Time SUBASSEMBLY ASSEMBLER Individual Minutes Time In: 1134 Time Out: 1152 Minutes: 18 Jacqueline Rudd M.Carlos Eduardo. CCC-SUBASSEMBLY ASSEMBLER 07/22/2019 12:03 PM * Enio Zarate MD [...] LABS CBC: Recent Labs 07/20/19 0648 07/21/1933807/22/19 0409 WBC 23.1* 15.1* 17.3* RBC 2.96* 2.97* 3.21* HGB 8.6* 8.5* 9.1* HCT 27.8* 28.5* 30.6* MCV 93.9 96.0 95.3 MCH 29.1 28.6 28.3 MCHC 30.9 29.8 29.7 RDW 16.2* 16.0* 15.5* PLT 370 287 291 MPV 10.2 10.0 9.7 BMP: Recent Labs 07/20/19 0648 07/21/1933807/21/19204907/22/19408 NA 142 143 -- 144 K 4.5 4.4 -- 3.7 CL 101 103 -- 106 CO2 25 26 -- 24 BUN 51* 57* -- 45* CREATININE 1.70* 1.74* 1.78* 1.49* GLUCOSE 174* 184* -- 105* CALCIUM 8.7 9.0 -- 8.9 PHOSPHORUS: Recent Labs 07/20/19 0648 PHOS 5.4* MAGNESIUM: Recent Labs 1950 07/21/1933807/22/19 040 MG 2.8* 3.1* 2.8* RENEE: Lab Results Component Value Date RENEE NEGATIVE 07/05/2019 SPEP: Lab Results Component Value [...] Patient's name: Eleanor Mcclain Patient's account/billing number: [id number] Patient's Date of : 1950 Age: 68 [...] sodium chloride 250 mL infusion 12 Units/kg/hr (07/22/19728) dextrose PRN Meds: potassium chloride, 10 mEq, [...] Yes ABG Lab Results Component Value Date VBC7NQF 31 07/21/2019 FIO2 15.0 07/21/2019 Laboratory findings: Complete Blood Count: Recent Labs 07/20/19 0648 07/21/1933807/22/19 040 WBC 23.1* 15.1* 17.3* HGB 8.6* 8.5* 9.1* HCT 27.8* 28.5* 30.6* PLT 370 287 291 Last 3 Blood Glucose: Recent Labs 07/20/19 0648 07/21/1933807/22/19 0409 GLUCOSE 174* 184* 105* PT/INR: Lab Results Component Value Date PROTIME 12.4 07/22/2019 INR 1.2 07/22/2019 PTT: Lab Results Component Value Date APTT 59.4 07/22/2019 Comprehensive Metabolic Profile: Recent Labs 1950 07/21/1933807/21/19204907/22/19 0409 NA 142 143 -- 144 [...] of the P2 segment of the right ADJUSTER LEADER. Additional 80% focal stenosis along the P2 segments of the bilateral admissions consultant. 40% stenosis at the origins of the [...] of the P2 segment of the right ADJUSTER LEADER. Additional 80% focal stenosis along the P2 segments of the bilateral admissions consultant. 40% stenosis at the origins of the [...] of the P2 segment of the right ADJUSTER LEADER. Additional 80% focal stenosis along the P2 segments of the bilateral admissions consultant. 40% stenosis at the origins of the [...] this chart was generated using voice recognition Orexoon dictation software. Although every effort was made to ensure the accuracy of this automated equity holder, some errors in equity holder may have occurred. Luda Thapa M.D. Pulmonary and critical care attending [facility]) 07/22/2019, 11:05 AM Associated attestation - Jaimee Arellano DO - 07/22/2019 3:30 PM EST Attending Physician Statement I have discussed the care of Eleanor Mcclain, including pertinent history and exam findings, withthe pulmonary critical care fellow/resident/DENTAL PROFESSIONAL. I have seen and examined the patient and the mendoza elements of all parts of the encounter have been performed by me. I agree with the assessment, plan and orders as documented by the fellow/resident/DENTAL PROFESSIONAL. Covered from last night's episode. Currently on oxygen 5 L nasal cannula and adequate saturations. Actually feeding self although still very weak. Decreased breath sounds in the bases but otherwise generally clear. Chest x-ray a minimally worse however limited inspiration on current film limits comparison. Discussed with patient and family. Discharge planning for snf facility. Patientpassed swallow study. Hopefully transfer next 24 to 48 hours. * Cole Arteaga DO - 07/22/2019 7:25 AM EST Shirley Supervisor [employer] Progress Note Date: 07/22/2019 Patient name: Eleanor [...] 1219) dextrose CBC: Recent Labs 07/20/19 0648 07/21/1933807/22/19 040 WBC 23.1* 15.1* 17.3* HGB 8.6* 8.5* 9.1* PLT 370 287 291 BMP: Recent Labs 07/20/19 0648 07/21/19 0339 07/21/19204907/22/19408 NA 142 143 -- 144 K 4.5 [...] input(s): LDLCALCU INR: Recent Labs 07/20/19 0648 07/21/1933807/22/19408 INR 1.1 1.2 1.2 Objective: Vitals: BP (!) 173/67 Pulse 62 Temp 97.4 F (36.3 C) (Axillary) Resp 15 Ht 5' 2 (1.575 m) Wt 175 lb 11.3 oz (79.7 kg) SpO2 100% BMI 32.14 kg/m General appearance: extubated HEENT: Head: Normocephalic, atraumatic without any obvious abnormalities. Lungs: Coarse breath sound b/l Heart: david, no murmurs, mechanical click Abdomen: soft, nontender [...] of the P2 segment of the right ADJUSTER LEADER. Additional 80% focal stenosis along the P2 segments of the bilateral admissions consultant. 40% stenosis at the origins of the [...] 7:25 AM by: Kanwal Michel MD Attending Physical Scientist Addendum: I have reviewed and performed the [...] you have any questions. Cole Arteaga DO, [facility], [facility] Supervisor [employer] [facility] * Gee Hernandez RN - 07/21/2019 10:59 [...] Patient's name: Eleanor Mcclain Patient's account/billing number: [id number] Patient's Date of : 1950 Age: 68 [...] Yes ABG Lab Results Component Value Date PFI0OKC 07/19/2019 FIO2 40.0 07/19/2019 Laboratory findings: Complete Blood Count: Recent Labs 07/19/19 0413 07/20/19 0648 07/21/19 0339 WBC 19.4* 23.1* 15.1* HGB 8.3* 8.6* 8.5* HCT 26.6* 27.8* 28.5* PLT 244 370 287 Last 3 Blood Glucose: Recent Labs 07/19/19 0413 07/20/19 0648 07/21/19 0339 GLUCOSE 252* 174* 184* PT/INR: Lab Results Component Value Date PROTIME 12.3 07/21/2019 INR 1.2 07/21/2019 PTT: Lab Results Component Value Date APTT 84.1 07/21/2019 Comprehensive Metabolic Profile: Recent Labs 07/19/1941207/20/1950 07/21/19 0339 NA 137 142 143 K [...] of the P2 segment of the right ADJUSTER LEADER. Additional 80% focal stenosis along the P2 segments of the bilateral admissions consultant. 40% stenosis at the origins of the [...] of the P2 segment of the right ADJUSTER LEADER. Additional 80% focal stenosis along the P2 segments of the bilateral admissions consultant. 40% stenosis at the origins of the [...] of the P2 segment of the right ADJUSTER LEADER. Additional 80% focal stenosis along the P2 segments of the bilateral admissions consultant. 40% stenosis at the origins of the [...] this chart was generated using voice recognition O[employer]oon dictation software. Although every effort was made to ensure the accuracy of this automated equity holder, some errors in equity holder may have occurred. Luda Thapa M.D. Pulmonary and critical care attending [facility]) 07/21/2019, 10:58 AM Associated attestation - Jaimee Arellano DO - 07/21/2019 10:10 PM EST Attending Physician Statement I have discussed the care of Eleanor Mcclain, including pertinent history and exam findings, withthe pulmonary critical care fellow/resident/DENTAL PROFESSIONAL. I have seen and examined the patient and the mendoza elements of all parts of the encounter have been performed by me. I agree with the assessment, plan and orders as documented by the fellow/resident/DENTAL PROFESSIONAL. Earlier on rounds. Up in chair, slowly interactive with son. Able to answer simple questions. No respiratory distress. 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 Urine output adequate. And to discontinue Dietz catheter. Awaiting swallow evaluation. Currently tolerating thick [...] % solution, PRN LABS CBC: Recent Labs 07/19/19 0413 07/20/19 0648 07/21/19 0339 WBC 19.4* 23.1* 15.1* RBC 2.89* 2.96* 2.97* HGB 8.3* 8.6* 8.5* HCT 26.6* 27.8* 28.5* MCV 92.0 93.9 96.0 MCH 28.7 29.1 28.6 MCHC 31.2 30.9 29.8 RDW 15.9* 16.2* 16.0* PLT 244 370 287 MPV 10.5 10.2 10.0 BMP: Recent Labs 07/19/19 0413 07/20/19 0648 07/21/19 0339 NA 137 142 143 K 5.0 4.5 4.4 CL 99 101 103 CO2 25 25 26 BUN 44* 51* 57* CREATININE 1.67* 1.70* 1.74* GLUCOSE 252* 174* 184* CALCIUM 8.7 8.7 9.0 PHOSPHORUS: Recent Labs 07/20/19 0648 PHOS 5.4* MAGNESIUM: Recent Labs 07/19/19 0413 07/20/19 0648 07/21/19 0339 MG 2.5 2.8* 3.1* RENEE: Lab Results Component Value Date RENEE NEGATIVE 07/05/2019 SPEP: Lab Results Component Value [...] DO - 07/21/2019 6:18 AM EST Tyra Supervisor [employer] Progress Note Date: 07/21/2019 Patient name: Eleanor [...] Units/kg/hr (07/20/19 1544) dextrose CBC: Recent Labs 07/19/1941207/20/1950 07/21/19338 WBC 19.4* 23.1* 15.1* HGB 8.3* 8.6* 8.5* PLT 244 370 287 BMP: Recent Labs 07/19/1941207/20/1950 07/21/19338 NA 137 142 143 K 5.0 [...] hours. Invalid input(s): LDLCALCU INR: Recent Labs 07/19/1941207/20/1950 07/21/19338 INR 1.1 1.1 1.2 Objective: Vitals: BP (!) 183/67 Pulse 61 Temp 98.6 F (37 C) (Oral) Resp 14 Ht 5' 2 (1.575 m) Wt 182 lb 12.2 oz (82.9 kg) SpO2 95% BMI 33.43 kg/m General appearance: extubated HEENT: Head: Normocephalic, atraumatic without any obvious abnormalities. Lungs: Coarse breath sound b/l Heart: david, no murmurs, mechanical click Abdomen: soft, nontender [...] of the P2 segment of the right ADJUSTER LEADER. Additional 80% focal stenosis along the P2 segments of the bilateral admissions consultant. 40% stenosis at the origins of the [...] 6:18 AM by: Kanwal Michel MD Attending Physical Scientist Addendum: I have reviewed and performed the [...] you have any questions. Cole Arteaga DO, [facility], GRACIA Shirley Supervisor [employer] [facility] * Meseret Arechiga APRN - KATIE - 07/20/2019 1:37 PM EST [...] occlusion left A1 MONSTER, 90% stenosis R ADJUSTER LEADER. Results of imaging reviewed at length with [...] of the P2 segment of the right ADJUSTER LEADER. Additional 80% focal stenosis along the P2 segments of the bilateral admissions consultant. 40% stenosis at the origins of the [...] of the P2 segment of the right ADJUSTER LEADER. Additional 80% focal stenosis along the P2 segments of the bilateral admissions consultant. 40% stenosis at the origins of the [...] of the P2 segment of the right ADJUSTER LEADER. Additional 80% focal stenosis along the P2 segments of the bilateral admissions consultant. 40% stenosis at the origins of the bilateral internal carotid arteries. The results were sent to radiology results communication. Labs and Images reviewed with: [x] Dr. Wilder Bishop [] Dr. Landen Lua [] Dr. Alan Hopkins [] There are no new interval images [...] Neuro Critical Care. Meseret Arechiga APRN - [facility] Neuro Critical Care Pager [phone] 07/20/2019 1:37 PM Associated attestation - Wilder Bishop MD - 07/21/2019 2:00 PM EST Neuro critical care Patient extubated 07/19 and is protecting airway and doing well respiratory smith. Hemodynamically stable and no vasopressors. Her awakening, level of alertness and simple command comprehension is improving She was able to antigravity right upper extremity and was able to flex both lower extremities, leftupper extremity has weak site foreman difficulty with antigravity Recommend therapy evaluations and [...] if any acute or new issues. Satnam Bishop MD * Rodrigo Patten MD - 07/20/2019 1:27 PM EST Pulmonary critical care progress note. Date and time: 07/20/2019 1:27 PM Patient's name: Eleanor Mcclain Patient's account/billing number: [id number] Patient's Date of : 1950 Age: 68 [...] Yes ABG Lab Results Component Value Date RZP2TUP 29 07/19/2019 FIO2 40.0 07/19/2019 Laboratory findings: [...] 07/20/2019 Comprehensive Metabolic Profile: Recent Labs 07/18/19 0431 07/19/19 0413 07/20/19 [...] of the P2 segment of the right ADJUSTER LEADER. Additional 80% focal stenosis along the P2 segments of the bilateral admissions consultant. 40% stenosis at the origins of the [...] of the P2 segment of the right ADJUSTER LEADER. Additional 80% focal stenosis along the P2 segments of the bilateral admissions consultant. 40% stenosis at the origins of the [...] of the P2 segment of the right ADJUSTER LEADER. Additional 80% focal stenosis along the P2 segments of the bilateral admissions consultant. 40% stenosis at the origins of the [...] to ensure the accuracy of this automated equity holder, some errors in equity holder may have occurred. Manpreet Treadwell M.D. Pulmonary and critical care attending [facility], [facility]) 07/20/2019, 1:27 PM Attending Physician Statement [...] this chart was generated using voice recognition Ap[employer]ve dictation software. Although every effort was made to ensure the accuracy of this automated equity holder, some errors in equity holder may have occurred. * Brynn Louie RN - 07/20/2019 1:04 PM EST flexiflow attempted putting flexiflow on ice will attempt again in 15 minutes * Loraine Mary RD, LD - 07/20/2019 12:14 PM EST Nutrition Assessment (Enteral Nutrition) Type and Reason for Visit: Reassess Nutrition Recommendations: -Continue NPO status per SUBASSEMBLY ASSEMBLER rec's -Restart tube feeding as able of [...] Fluid Accumulation-Mild fluid accumulation, Extremities, Generalized 6. Explosive Expert Strength-Not measured Nutrition Risk Level: High Nutrition Needs: Estimated Daily Total Kcal: 1.2-1.4 ~>5372-7750 kcals/d Estimated Daily Protein (g): 1.2-1.4 gm/kg [...] 36 lb wt gain x 1 wk [place] Wt: 110 lb 3.7 oz (50 kg), % [place] 159% adm/ideal BMI Classification: BMI 25.0 [...] Function Contact Number: [phone] * Lita Mancini, WATER RESTORATION TECHNICIAN - 07/20/2019 11:49 AM EST Physical Therapy Facility/Department: 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 CAR 1 Initial Speech/Language/Cognitive Assessment NAME: Eleanor [...] noted deficits. Verbal education provided. Recommendations: Requires SUBASSEMBLY ASSEMBLER Intervention: Yes Duration/Frequency of Treatment: 3-5x per [...] MIKHAIL Hernandez 07/20/2019 9:49 AM * Janusz Duncan MD - 07/20/2019 9:41 AM EST Tyra Super[employer] Progress Note Date: 07/20/2019 Patient name: Eleanor [...] Stopped (07/19/19 1417) dextrose CBC: Recent Labs 07/18/1943007/19/19 0413 07/20/19 0648 [...] input(s): LDLCALCU INR: Recent Labs 07/18/19 0431 07/19/193 07/20/19 0648 INR 1.1 1.1 1.1 Objective: Vitals: BP (!) 175/60 Pulse 66 Temp 98.6 F (37 C) (Oral) Resp 16 Ht 5' 2 (1.575 m) Wt 182 lb 12.2 oz (82.9 kg) SpO2 (!) 86% BMI 33.43 kg/m General appearance: extubated HEENT: Head: Normocephalic, atraumatic without any obvious abnormalities. Lungs: Coarse breath sound b/l Heart: david, no murmurs, mechanical click Abdomen: soft, nontender [...] of the P2 segment of the right ADJUSTER LEADER. Additional 80% focal stenosis along the P2 segments of the bilateral admissions consultant. 40% stenosis at the origins of the [...] by: Nuha Coronel MD Fellow, Cardiovascular Diseases [facility] Attending Physician Statement I have discussed the care of the patient, including pertinent history and exam findings, with the resident. I have seen and examined the patient and the mendoza elements of all parts of the encounter have been performed by me. I agree with the assessment, plan and orders as documented by the resident. Pt failed swallow study Janusz Duncan MD * Nicole Garcia, SUBASSEMBLY ASSEMBLER - 07/20/2019 9:36 AM EST Speech Language Pathology Facility/Department: [facility] 1 CLINICAL BEDSIDE SWALLOW EVALUATION NAME: Eleanor [...] of HTN, HLD, DM 2, CKD, CVA (2012 with no residual deficits), CAD, and aortic [...] tolerate any PO safely Treatment Plan Requires SUBASSEMBLY ASSEMBLER Intervention: Yes Duration/Frequency of Treatment: 1-2x per [...] Patient Education Response: Verbalizes understanding Therapy Time SUBASSEMBLY ASSEMBLER Individual Minutes Time In: 0900 Time Out: 0910 Minutes: 10 MIKHAIL Hernandez 07/20/2019 9:36 AM * Nghia Marmolejo MD - 07/20/2019 9:30 AM EST Nephrology [...] to have a swallow study this am Dietz still in place. Hemodynamically stable. Patient currently [...] % solution, PRN LABS CBC: Recent Labs 07/18/19 0431 07/19/19 0413 07/20/19 0648 WBC 21.3* 19.4* 23.1* RBC 2.86* 2.89* 2.96* HGB 8.4* 8.3* 8.6* HCT 26.3* 26.6* 27.8* MCV 92.0 92.0 93.9 MCH 29.4 28.7 29.1 MCHC 31.9 31.2 30.9 RDW 15.9* 15.9* 16.2* PLT 246 244 370 MPV 10.6 10.5 10.2 BMP: Recent Labs 07/18/19 0431 07/19/19 0413 07/20/19 0648 NA 138 137 142 K 4.0 5.0 4.5 CL 97* 99 101 CO2 25 25 25 BUN 34* 44* 51* CREATININE 1.68* 1.67* 1.70* GLUCOSE 190* 252* 174* CALCIUM 8.8 8.7 8.7 PHOSPHORUS: Recent Labs 07/18/19 0431 07/20/19 0648 PHOS 4.8* 5.4* MAGNESIUM: Recent Labs 07/18/19 0431 07/19/19 0413 07/20/19 0648 MG 2.3 2.5 2.8* RENEE: Lab Results Component Value Date RENEE NEGATIVE 07/05/2019 SPEP: Lab Results Component Value [...] hesitate to call with questions. * Titus Wilkerson MD - 07/20/2019 8:40 AM EST [facility] - Progress Note Today's Date and Time: [...] effusion> Will D/C Unasyn Infection Control Recommendations [place] Precautions Antimicrobial Stewardship Recommendations Discontinuation of therapy [...] History: Diagnosis Date Aortic stenosis - in [place] CAD (coronary artery disease) Chronic kidney disease CVA (cerebral vascular accident) (HCC) 2011 no deficits Diabetes mellitus ([facility]) Dr. Richards Hyperlipidemia Hypertension Dr. Richards Kidney [...] LOVE performed by Caro Teresa MD at [facility] CVOR CARDIAC CATHETERIZATION Bilateral 06/06/2019 Possible bypass & aortic valve replacement CHOLECYSTECTOMY COLONOSCOPY CORONARY ARTERY BYPASS GRAFT N/A 07/03/2019 CABG CORONARY ARTERY BYPASS REDO performed by Caro Teresa MD at [facility] CVOR GALLBLADDER SURGERY HC PICC POWERPICC DOUBLE 07/13/2019 HYSTERECTOMY STERNUM DEBRIDEMENT N/A 07/04/2019 STERNUM WASHOUT WITH STERNUM CLOSURE WITH STERNALOCK 360, 12 SELF-DRILLING LOCKING SCREWS 12MM, 4 SELFDRILLING LOCKING SCREWS 14MM. performed by Caro Teresa MD at [facility] Medications: amLODIPine 5 mg Oral Daily bumetanide [...] file Gets together: Not on file Attends sabianist service: Not on file Active member of [...] tender. Bowel sounds hypoactive. No organomegaly : dietz with clear urine All four Extremities: No [...] replaced inverted T waves in Anterolateral leads 2-21 CXR EXAMINATION: ONE XRAY VIEW OF THE [...] or atelectasis. 3. Interval extubation. Medical Decision Mpkxat-Qumztukp-Lkpqh: 07/17/2019 10:16 AM - [place] Incoming Lab Results From [facility] Specimen Information: Sputum, Suctioned Component Collected Lab [...] - [place] Incoming Lab Results From [facility] Specimen Information: Blood Component Collected Lab Specimen Description 07/15/2019 1:54 PM [facility] .BLOOD Special Requests 07/15/2019 1:54 PM [facility] L ARM 10 CC Culture 07/15/2019 1:54 PM [facility] NO GROWTH 17 HOURS 07/13/2019 1:00 PM - [place] Incoming Lab Results From [facility] Specimen Information: Tracheal Aspirate Component Collected Lab [...] data were reviewed Discussed with nursing Staff, estate planner Infection Control and Prevention measures reviewed [...] as documented by the resident/ student. Titus Wilkerson MD. Pager: - Office: * Vasiliy Bethea APRN - CNA CAREGIVER - 07/20/2019 7:45 AM EST [facility] Daily Progress Note [...] (07/20/19 0943) dextrose Data: CBC: Recent Labs 07/18/1943007/19/1941207/20/19 0648 WBC 21.3* 19.4* 23.1* HGB 8.4* 8.3* 8.6* HCT 26.3* 26.6* 27.8* MCV 92.0 92.0 93.9 PLT 246 244 370 BMP: Recent Labs 07/18/1943007/19/1941207/20/19 0648 NA 138 [...] for the cardiothoracic surgery group today. VASILIY BETHEA APRN, DENTAL PROFESSIONAL * Wilder Bishop MD - 07/19/2019 4:44 PM EST Daily Progress Note Neuro Critical Care Patient Name: Eleanor Mcclain Patient : 1950 Room/Bed: [address] [place] [address] Code Status: Full Allergies: Allergies Allergen Reactions [...] was noted to have seizure-like activity per medical staff services coordinator. She was loaded with Keppra and started [...] occlusion left A1 MONSTER, 90% stenosis R ADJUSTER LEADER. Results of imaging reviewed at length with [...] and Images reviewed with: [] Dr. Wilder Bishop [] Dr. Landen Lua [] Dr. Alan Hopkins [] There are no new interval images [...] are grossly intact Motor Exam: adequate hand site foreman right hands, wiggles toes on right, withdraws [...] Fina Cooper MD Neuro Critical Care Pager [phone] 07/19/2019 4:53 PM Neuro critical care: Improving encephalopathy and simple commands following each day. Opening eyes, nodding appropriately, squeezing hands, can take in deep TVs on command, good RSBI and good cuff leak. Steroids can be stopped. SBT trial continued. Patient extubated later this afternoon. We'll assess stroke deficits and neuro exam post extubation. Avoid any PRN fentanyl or Benzos. Satnam Bishop MD * Turner Carnes RN - 07/19/2019 2:[address] Burger at bedside to assess pt, orders to extubate * Vasiliy Bethea APRN - [place] - 07/19/2019 1:47 PM EST [facility] Daily Progress Note [...] (07/19/19 1201) dextrose Data: CBC: Recent Labs 07/17/19 0456 07/18/19 0431 07/19/19 0413 WBC 19.2* 21.3* 19.4* HGB 7.8* 8.4* 8.3* HCT 24.1* 26.3* 26.6* MCV 90.6 92.0 92.0 PLT 216 246 244 BMP: Recent Labs 07/17/196 07/18/1943007/19/19412 NA 137 138 137 K 4.1 4.0 5.0 CL 99 97* 99 CO2 25 25 25 PHOS -- 4.8* -- BUN 33* 34* 44* CREATININE 1.34* 1.68* 1.67* PT/INR: Recent Labs 07/17/19 0456 07/18/19 04307/19/19412 PROTIME 11.4 11.3 11.1 INR 1.1 1.1 1.1 APTT: Recent Labs 07/18/19 04307/19/1941207/19/19 1145 APTT 54.1* 77.1* 60.0* I/O: I/O [...] for the cardiothoracic surgery group today. VASILIY BETHEA APRN, DENTAL PROFESSIONAL * Janusz Duncan MD - 07/19/2019 11:07 AM EST Tyra Super[employer] Progress Note Date: 07/19/2019 Patient name: Eleanor [...] BMP: Recent Labs 07/17/19 0456 07/18/19 0431 07/19/193 NA 137 138 137 K 4.1 4.0 [...] abnormalities. Lungs: Coarse breath sound b/l Heart: david, no murmurs, mechanical click Abdomen: soft, nontender [...] of the P2 segment of the right ADJUSTER LEADER. Additional 80% focal stenosis along the P2 segments of the bilateral admissions consultant. 40% stenosis at the origins of the [...] by: Nuha Coronel MD Fellow, Cardiovascular Diseases [facility] Attending Physician Statement I have discussed the care of the patient, including pertinent history and exam findings, with the resident. I have seen and examined the patient and the mendoza elements of all parts of the encounter have been performed by me. I agree with the assessment, plan and orders as documented by the resident. Pt extubated Will get A line out Janusz Duncan MD * Nghia Marmolejo MD - 07/19/2019 10:01 AM EST Nephrology [...] did squeeze hands on command this morning. Dietz still in place. Hemodynamically stable. Patient currently [...] CALCIUM 8.5* 8.8 8.7 PHOSPHORUS: Recent Labs 07/18/19430 PHOS 4.8* MAGNESIUM: Recent Labs 02/25/20 0456 02/26/20 0431 02/27/20 0413 MG 2.1 2.3 2.5 RENEE: Lab Results Component Value Date RENEE NEGATIVE 07/05/2019 SPEP: Lab Results Component Value [...] not hesitate to call with questions. * Turner Carnes RN - 07/19/2019 9:54 AM EST OG advanced 5cm as suggested by Radiology. NG now at 58 - air bolus heard * Donovan Mena MD - 07/19/2019 9:39 AM EST Pulmonary critical care progress note. Date and time: 07/19/2019 9:39 AM Patient's name: Eleanor Mcclain Patient's account/billing number: [id number] Patient's Date of : 1950 Age: 68 [...] Yes ABG Lab Results Component Value Date MRR4DVV 29 07/19/2019 FIO2 40.0 07/19/2019 Laboratory findings: [...] of the P2 segment of the right ADJUSTER LEADER. Additional 80% focal stenosis along the P2 segments of the bilateral admissions consultant. 40% stenosis at the origins of the [...] of the P2 segment of the right ADJUSTER LEADER. Additional 80% focal stenosis along the P2 segments of the bilateral admissions consultant. 40% stenosis at the origins of the [...] of the P2 segment of the right ADJUSTER LEADER. Additional 80% focal stenosis along the P2 segments of the bilateral admissions consultant. 40% stenosis at the origins of the [...] this chart was generated using voice recognition [employer] dictation software. Although every effort was made to ensure the accuracy of this automated equity holder, some errors in equity holder may have occurred. Manpreet Treadwell M.D. Pulmonary and critical care attending [facility]) 07/19/2019, 9:39 AM Attending Physician Statement [...] to ensure the accuracy of this automated equity holder, some errors in equity holder may have occurred. * Lita Mancini PTA [...] Treatments/week: 4-5x/wk Lita Mancini PTA * Titus Wilkreson MD - 07/19/2019 8:45 AM EST [facility] - Progress Note Today's Date and Time: [...] adjusted for renal failure Infection Control Recommendations [place] Precautions Antimicrobial Stewardship Recommendations Discontinuation of therapy [...] History: Diagnosis Date Aortic stenosis - in [place] CAD (coronary artery disease) Chronic kidney disease CVA (cerebral vascular accident) ([facility]) 2011 no deficits Diabetes mellitus ([facility]) Dr. Richards Hyperlipidemia Hypertension Dr. Richards Kidney [...] LOVE performed by Caro Teresa MD at [facility] CVOR CARDIAC CATHETERIZATION Bilateral 06/06/2019 Possible bypass & aortic valve replacement CHOLECYSTECTOMY COLONOSCOPY CORONARY ARTERY BYPASS GRAFT N/A 07/03/2019 CABG CORONARY ARTERY BYPASS REDO performed by Caro Teresa MD at [facility] CVMA GALLBLADDER SURGERY HC PICC POWERPICC DOUBLE 07/13/2019 HYSTERECTOMY STERNUM DEBRIDEMENT N/A 07/04/2019 STERNUM WASHOUT WITH STERNUM CLOSURE WITH STERNALOCK 360, 12 SELF-DRILLING LOCKING SCREWS 12MM, 4 SELFDRILLING LOCKING SCREWS 14MM. performed by Caro Teresa MD at [facility] Medications: bumetanide 1 mg Intravenous BID dexamethasone [...] file Gets together: Not on file Attends sabianist service: Not on file Active member of [...] tender. Bowel sounds hypoactive. No organomegaly : dietz with clear urine All four Extremities: No cyanosis, clubbing, mild generalized edema, no effusions. Neurologic: No purposeful movements Skin: Warm and dry with good turgor.Signs of peripheral arterial insufficiency. No ulcerations. No open wounds. Medical Decision Making -Laboratory: I have independently reviewed/ordered the following labs: CBC with Differential: Recent Labs 07/18/19 0431 07/19/19412 WBC 21.3* 19.4* HGB 8.4* 8.3* HCT [...] to pulmonary edema versus pneumonia, grossly stable. - CXR EXAMINATION: ONE XRAY VIEW OF THE [...] Pulmonary edema. Small left effusion. Medical Decision Bpcfqt-Lluoysas-Yzauw: 07/17/2019 10:16 AM - [place] Incoming Lab Results From [facility] Specimen Information: Sputum, Suctioned Component Collected Lab Specimen Description 07/15/2019 11:48 AM [facility] [place] .SUCTIONED SPUTUM Special Requests [...] - [place] Incoming Lab Results From [facility] Specimen Information: Blood Component Collected Lab Specimen Description 07/15/2019 1:54 PM [facility] [place] .BLOOD Special Requests 07/15/2019 1:54 PM [facility] L ARM 10 CC Culture 07/15/2019 1:54 PM [facility] NO GROWTH 17 HOURS 07/13/2019 1:00 PM - [place], [place] Incoming Lab Results From [facility] Specimen Information: Tracheal Aspirate Component Collected Lab [...] data were reviewed Discussed with nursing Staff, estate planner Infection Control and Prevention measures reviewed [...] as documented by the resident/ student. Titus Wilkerson MD. Pager: - Office: * Turner Carnes RN - 07/19/2019 8:00 AM EST OG tube at 53, charted at 75 per blood bank custodian, air bolus heard, will have kub done to double check placement. Tube feed held for now * Donovan Mena MD - 07/18/2019 4:03 PM EST Pulmonary critical care progress note. Date and time: 07/18/2019 4:03 PM Patient's name: Eleanor Mcclain Patient's account/billing number: [id number] Patient's Date of : 1950 Age: 68 [...] Femoral [] Right Subclavian [] Left Subclavian DIETZ'S CATHETER: [] No [x] Yes (Date of [...] Yes ABG Lab Results Component Value Date SGQ6RAZ 29 07/18/2019 FIO2 40.0 07/18/2019 Laboratory findings: [...] of the P2 segment of the right ADJUSTER LEADER. Additional 80% focal stenosis along the P2 segments of the bilateral admissions consultant. 40% stenosis at the origins of the [...] of the P2 segment of the right ADJUSTER LEADER. Additional 80% focal stenosis along the P2 segments of the bilateral admissions consultant. 40% stenosis at the origins of the [...] of the P2 segment of the right ADJUSTER LEADER. Additional 80% focal stenosis along the P2 segments of the bilateral admissions consultant. 40% stenosis at the origins of the [...] this chart was generated using voice recognition [employer] dictation software. Although every effort was made to ensure the accuracy of this automated equity holder, some errors in equity holder may have occurred. Manpreet Treadwell M.D. Pulmonary and critical care attending [facility]) 07/18/2019, 4:03 PM Attending Physician Statement [...] this chart was generated using voice recognition [employer] dictation software. Although every effort was made to ensure the accuracy of this automated equity holder, some errors in equity holder may have occurred. * Alondra Vincent RN - 07/18/2019 12:[address] bishop (neuro) and Meseret MASSEY (neuro-crit care) and Diego MASSEY rounded on patient. Patient followedsome commands for neuro not all. Checked cuff leak and no cuff leak, want to start steroids and seroquel Diego CNA CAREGIVER will confirm with Dr. Teresa if ok. Neuro wants as little precedex as possible for patient. Will continue to monitor Alondra Vincent RN * Alondra Vincent RN - 07/18/2019 12:[address] duncan rounded updated on vitals, labs and patient [...] Treatments/week: 7x/wk Lita Mancini PTA * Titus Wilkerson MD - 07/18/2019 9:15 AM EST [facility] - Progress Note Today's Date and Time: [...] adjusted for renal failure Infection Control Recommendations [place] Precautions Antimicrobial Stewardship Recommendations Discontinuation of therapy [...] Plat: 305->263->219->218->216->246 Vit B12: 1313 Cultures: Urine: 2- no growth Blood: - 07-11: no growth [...] Chronic kidney disease CVA (cerebral vascular accident) ([facility]) 2011 no deficits Diabetes mellitus ([facility]) Dr. Richards Hyperlipidemia Hypertension Dr. Richards Kidney [...] LOVE performed by Caro Teresa MD at [facility] CVMA CARDIAC CATHETERIZATION Bilateral 06/06/2019 Possible bypass & aortic valve replacement CHOLECYSTECTOMY COLONOSCOPY CORONARY ARTERY BYPASS GRAFT N/A 07/03/2019 CABG CORONARY ARTERY BYPASS REDO performed by Caro Teresa MD at [facility] CVMA GALLBLADDER SURGERY HC PICC POWERPICC DOUBLE 07/13/2019 HYSTERECTOMY STERNUM DEBRIDEMENT N/A 07/04/2019 STERNUM WASHOUT WITH STERNUM CLOSURE WITH STERNALOCK 360, 12 SELF-DRILLING LOCKING SCREWS 12MM, 4 SELFDRILLING LOCKING SCREWS 14MM. performed by Caro Teresa MD at [facility] Medications: bumetanide 1 mg Intravenous BID insulin [...] file Gets together: Not on file Attends sabianist service: Not on file Active member of [...] tender. Bowel sounds hypoactive. No organomegaly : dietz with clear urine All four Extremities: No cyanosis, clubbing, mild generalized edema, no effusions. Neurologic: No purposeful movements Skin: Warm and dry with good turgor.Signs of peripheral arterial insufficiency. No ulcerations. No open wounds. Medical Decision Making -Laboratory: I have independently reviewed/ordered the following labs: CBC with Differential: Recent Labs 07/17/196 07/18/19 0431 WBC 19.2* 21.3* HGB 7.8* 8.4* HCT 24.1* 26.3* PLT 216 246 BMP: Recent Labs 07/17/196 07/18/19 0431 NA 137 138 K 4.1 [...] Pulmonary edema. Small left effusion. Medical Decision Reqnvp-Vdsqyrbm-Iewfg: 07/17/2019 10:16 AM - [place] Incoming Lab Results From [facility] Specimen Information: Sputum, Suctioned Component Collected Lab [...] - [place], [place] Incoming Lab Results From [facility] Specimen Information: Blood Component Collected Lab Specimen Description 07/15/2019 1:54 PM [facility] [place] .BLOOD Special Requests 07/15/2019 1:54 PM [facility] L ARM 10 CC Culture 07/15/2019 1:54 PM [facility] NO GROWTH 17 HOURS 07/13/2019 1:00 PM - [place] Incoming Lab Results From [facility] Specimen Information: Tracheal Aspirate Component Collected Lab [...] data were reviewed Discussed with nursing Staff, estate planner Infection Control and Prevention measures reviewed [...] as documented by the resident/ student. Titus Wilkerson MD. Pager: - Office: * Nghia Marmolejo MD - 07/18/2019 9:06 AM EST Nephrology [...] 24-hour urine output was about [address] Hemodynamically stable. Patient currently [...] 0456 07/18/19 0431 MG 2.0 2.1 2.3 RENEE: Lab Results Component Value Date RENEE NEGATIVE 07/05/2019 SPEP: Lab Results Component Value [...] RN - 07/18/2019 9:[address] marmolejo rounded on patient updated on vitals and labs and status orders to decrease bumex to 1 mgBID. He said he would put in the order. Ok to give aldactone. Alondra Vincent RN * Meseret Arechiga APRN - DENTAL PROFESSIONAL - 07/18/2019 8:33 AM EST Daily Progress [...] occlusion left A1 MONSTER, 90% stenosis R ADJUSTER LEADER. Results of imaging reviewed at length with [...] of the P2 segment of the right ADJUSTER LEADER. Additional 80% focal stenosis along the P2 segments of the bilateral admissions consultant. 40% stenosis at the origins of the [...] of the P2 segment of the right ADJUSTER LEADER. Additional 80% focal stenosis along the P2 segments of the bilateral admissions consultant. 40% stenosis at the origins of the [...] of the P2 segment of the right ADJUSTER LEADER. Additional 80% focal stenosis along the P2 segments of the bilateral admissions consultant. 40% stenosis at the origins of the bilateral internal carotid arteries. The results were sent to radiology results communication. Labs and Images reviewed with: [x] Dr. Wilder Bishop [] Dr. Landen Lua [] Dr. Alan Hopkins [] There are no new interval images [...] APRN - KATIE Neuro Critical Care Pager [phone] 07/18/2019 8:33 AM Associated attestation - Wilder Bishop MD - 07/18/2019 4:45 PM EST Neuro [...] team SCHU[place]ER present in the room. Satnam Bishop MD * Alondra Vincent RN - 07/18/2019 8:00 AM EST Confirmed with Dr. Coronel to still give amio despite patient HR 50's. * Vasiliy Bethea APRN - [place] - 07/18/2019 7:56 AM EST [facility] Daily Progress Note [...] IV infusion 0.5 mcg/kg/hr (07/18/19 0534) dextrose Data: CBC: Recent Labs 07/16/19 0502 07/17/19 0456 07/18/19 0431 WBC 19.4* 19.2* 21.3* HGB 7.0* 7.8* 8.4* HCT 22.7* 24.1* 26.3* MCV 91.2 90.6 92.0 PLT 218 216 246 BMP: Recent Labs 07/16/19 0502 07/17/196 07/18/19430 NA 139 137 138 K 3.9 4.1 4.0 CL 99 99 97* CO2 26 25 25 PHOS 3.0 -- 4.8* BUN 26* 33* 34* CREATININE 1.26* 1.34* 1.68* PT/INR: Recent Labs 07/16/19 0502 07/17/196 07/18/19430 PROTIME 11.9 11.4 11.3 INR 1.1 1.1 [...] a plan regarding trach and peg. -Dr. Duncan wants to start coumadin, but would rather [...] for the cardiothoracic surgery group today. VASILIY BETHEA APRN, DENTAL PROFESSIONAL * Janusz Duncan MD - 07/18/2019 7:39 AM EST Tyra Super[employer] Progress Note Date: 07/18/2019 Patient name: Eleanor [...] 0534) dextrose CBC: Recent Labs 07/16/19 0502 07/17/1945507/18/19430 WBC 19.4* 19.2* 21.3* HGB 7.0* 7.8* 8.4* PLT 218 216 246 BMP: Recent Labs 07/16/19 0502 07/17/1945507/18/19430 NA 139 137 138 K 3.9 4.1 [...] input(s): LDLCALCU INR: Recent Labs 07/16/19 0502 07/17/1945507/18/19430 INR 1.1 1.1 1.1 Objective: Vitals: BP (!) 150/50 Pulse 53 Temp 98.5 F (36.9 C) (Axillary) Resp 22 Ht 5' 2 (1.575 m) Wt 169 lb 15.6 oz (77.1 kg) SpO2 98% BMI 31.09 kg/m General appearance: Intubated HEENT: Head: Normocephalic, atraumatic without any obvious abnormalities. Lungs: Coarse breath sound b/l Heart: david, no murmurs, mechanical click Abdomen: soft, nontender [...] of the P2 segment of the right ADJUSTER LEADER. Additional 80% focal stenosis along the P2 segments of the bilateral admissions consultant. 40% stenosis at the origins of the [...] by: Nuha Coronel MD Fellow, Cardiovascular Diseases [facility] Attending Physician Statement I have discussed the [...] oral anticoagulation So can start coumadin Janusz Duncan MD * Larissa Garcia RN - 07/17/2019 1:50 PM EST Spoke with Diego Bethea NP. 24 hours restraint orders to be [...] Fluid Accumulation-Mild fluid accumulation, Extremities, Generalized 6. 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 Dietz still in place. Hemodynamically stable. Continues on [...] solution, PRN LABS CBC: Recent Labs 07/15/19 1701 07/16/19 0502 07/17/19 0456 WBC 22.0* 19.4* 19.2* [...] 0502 07/17/19 0456 MG 2.0 2.0 2.1 RENEE: Lab Results Component Value Date RENEE NEGATIVE 07/05/2019 SPEP: Lab Results Component Value Date PROT 5.7 07/09/2019 ALBCAL 3.6 Chief Complaint and Reason for Visit Chief Complaint Admit Date Renal Stage 4 kidney disease February 1:21pm N25.81 I12.9 N18.9 d63.1 e11.22 n18.4 No vem2023 12:25pm Reason for Visit Admit Date Anemia [...] n25.81 i12.9 n18.4 n18.9 d63.1 e11.22 No 2023 10:27am N25.81 I12.9 N18.9 d63.1 e11.22 n18.4 No 2023 12:25pm Chief Complaint Admit Date Renal [...] hronic kidney disease October 16, 2024 1:55pm Chief Complaint Admit Date possible UTI March 11, 2025 1 2:14pm Reason for Visit Admit Date Urinary incontinence March 11, 2025 12:14pm Additional Source Comments Reason for Visit (unrecogniz ed section and content) StatusReasonSpecialtyDiagnoses / ProceduresReferred By ContactReferred To Contact Diagnoses NEED DIAGNOSIS Procedures LEFT AND RIGHT HEART CATH StatusReasonSpecialtyDiagnoses / ProceduresReferred By ContactReferred To ContactClosed Diagnoses CAD, multiple vessel Pre-op testing Procedures Echocardiogram transthoracic Echocardiogram transthoracic HC 7-G-IFCW-LMT Vasiliy Bethea APRN - NP [address] [address] Vasiliy Bethea APRN - NP [address] [address] StatusReasonSpecialtyDiagnoses / ProceduresReferred By ContactReferred To ContactClosed Diagnoses CAD, multiple vessel Pre-op testing Procedures VL Vein Mapping Lower Bilateral VL Vein Mapping Lower Bilateral HCHG DUPLEX EXTREM VENOUS,BILAT Vasiliy Bethea APRN - NP [address] [address] Vasiliy Bethea APRN - NP [address] [address] StatusReasonSpecialtyDiagnoses / ProceduresReferred By ContactReferred To ContactClosedRadiology Diagnoses CAD, multiple vessel Pre-op testing Procedures CT Chest WO Contrast CT Chest WO Contrast CT CHEST W/O CONTRAST Vasiliy Bethea APRN - NP [address] [address] StatusReasonSpecialtyDiagnoses / ProceduresReferred By ContactReferred To Contact Diagnoses 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 Procedures CO CABG, ARTERY-VEIN, TWO CABG CORONARY ARTERY BYPASS X2; AORTIC VALVE REPLACEMENT, ON PUMP, JESSICA GUAMAN, LOVE Caro Teresa MD [address] [facility] [address] [place] [address] [facility] StatusReasonSpecialtyDiagnoses / ProceduresReferred By ContactReferred To ContactPending ReviewVascular Lab Diagnoses CAD, multiple vessel Pre-op testing Bilateral carotid bruits Procedures VL DUP CAROTID BILATERAL VL DUP CAROTID BILATERAL HC EXTRACRANIAL BILAT STUDY BetheaVasiliy, DIVER ASSISTANT - CNA CAREGIVER [address] [facility] [address] [place] [address] [facility] [address] [place] [address] SpecialtyDiagnoses / ProceduresReferred By ContactReferred To Contact Diagnoses Palpitations Procedures Cardiac event monitor Anshul Irizarry MD [address] [place] [address] Referral IDStatusReasonStart DateExpiration DateVisits RequestedVisits [id number]/18/[id number] DateCommentsMed Refill 07/01/2023SpecialtyDiagnoses / ProceduresReferred By ContactReferred To Contact Diagnoses Chronic a-fib (HCC) Chronic a-fib (HCC) [I48.20] Procedures CO ECHO TRANSESOPHAG R-T 2D W/PRB IMG ACQUISJ I&R CO ECHO TRANSESOPHAG R-T 2D W/PRB IMG ACQUISJ I&R Love during cath case Matty Lei MD [address] [place] [address] [facility] [address] [place] [address] Referral IDStatusReasonStart DateExpiration DateVisits RequestedVisits [id number] / ProceduresReferred By ContactReferred To Contact Diagnoses SOB (shortness of breath) Procedures Nuclear stress test with myocardial perfusion Anshul Irizarry MD [address] [place] [address] Referral IDStatusReasonStart DateExpiration DateVisits RequestedVisits [id number]/7/[id number]Vxljjvk Sleeping ProblemMemory LossReasonCommentsFallReasonCommentsMed RefillReason CommentsMed Change RequestReasonOnset DateCommentsMed Rautgf8205/28/2024Reason Onset DateCommentsfollow up crigkmwoohm11/08/2024ReasonCommentsHypertension HyperlipidemiaDiabetesReasonOnset DateCommentsMed Rnilbk7609/03/2024ReasonComments Edoqtn-ufWikwxmOkioqqcuOrftyt-tnQrfllcCuhhr DateCommentsre: PT Recommendation 10/01/2024all Back fkhgigriwRU94/12/2025Critical access hospital contacted.ReasonOnset Date Comments[facility]/01/2024ReasonCommentsSkin Check Tasia Irizarry MD - 06/06/2019 6:16 AM EST H&P Notes (unrecognized sect ion and content) Tasia Irizarry M.D. [facility] [place] [address] May 10, 2019 Grayson Hernandez MD [address] [place] [address] RE: Eleanor Mcclain : [address] Hernandez: CHIEF COMPLAINT: 1. Severe aortic stenosis. 2. Shortness of breath. 3. Marked fatigue, possibly secondary to aortic stenosis. HISTORY OF PRESENT ILLNESS: Mrs. Mcclain is a pleasant 68-year-old female who has a history of aortic stenosis. In 2016, she had mild aortic stenosis with nakw-om-unylgchx mitral and tricuspid regurgitation, with normal ejection fraction. On 07/12/2017, she had another echocardiogram that showed an EF of 55% with severe dilatation of the left atrium and right atrium, and right ventricle normal. She had moderate aortic stenosis, read on an echocardiogram in [place]. Her last echocardiogram was on 03/30/2019, also at [place]. This showed normal EF of 55% to [...] This was noticed when she went to [facility] in 06/2018 and had difficulty with keeping up with the tour group. She denies chest pain or chest discomfort although she has some atypical discomfort, not related toactivity. She has had some edema that has [...] Long history of depression. 3. She has osk-cmilxaj-tlgdutfyw diabetes, which is under good control. 4. [...] Her youngest son is 41 years old andis an alcoholic. He has moved in and out of his parent's house. He had a fight with his 49-hrft-wxpkgk and ended up in senior living overnight. He is going through a possible divorce and lives with another woman. It has been very stressful for . They were trying to get temporary custody of their 14-year-old grandson, but the wbjycfgd-jc-vjz will not do this. The wonjmnqn-qr-qmf has filed for divorce from their son. She does not smoke, does not drink alcohol. Her has also retired.They went to [employer] in June and she had difficulty keeping up with the [employer] group. She does notexercise. 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 REVIEW OF SYSTEMS: Cardiac as above. Other systems reviewed including constitutional, eyes, ears, nose and throat, cardiovascular, respiratory, GI, , musculoskeletal, integumentary, neurologic, psychiatric, endocrine, hematologic and allergic/immunologic are negative except for what is described a scottie. No weight loss or weight gain. No [...] edema. Skin was warm and dry. No calftenderness. Nail beds pink. Good cap refill. PULSES: [...] x-ray was unremarkable. Echocardiogram on 03/30/2019, at [place] demonstrated ejection fraction greater than 50%, with mild dilatation of left atrium. She had normal right-sided chambers, with calcified aortic valve with severe aortic stenosis with an aortic valve area of 0.8 cm2. IMPRESSION: 1. Severe aortic stenosis by an echocardiogram at [place], where it showed an aortic valve area 0.8 cm2. 2. Marked loss of energy and shortness of breath with exertion over the last year but markedly worse in the last several months, probably secondary to symptomatic aortic stenosis. 3. Xyj-otyzadl-hbiataxxs diabetes, under good control, with her hemoglobin A1c of 6.1. 4. Hypertension, very labile, very elevated in our office today at 190/90. PLAN: We will proceed with a left and right cardiac catheterization to define her anatomy and to directly measure her aortic valve area. DISCUSSION: Mrs. Mcclain has had marked increase in shortness of breath and loss of energy over thelast year but especially in the last several months. Her echocardiogram in [place] on 03/30/2019 showed aortic stenosis with an [...] think it is reasonable to proceed directly witha left and right cardiac catheterization. She was fairly hypertensive today but was fairly nervous also and was somewhat distraught at her family situation, with her youngest son and his troubles. Therefore, I made no change in medications. We will plan on doing the catheterization on the second week in May in [place]. Risks and benefits have been outlined. Thank you very much for allowing me the privilege of seeing Mrs. Mcclain. If you have any questionson my thoughts, please do not hesitate to contact me. Sincerely, TASIA IRIZARRY documented in this encounter INFORMATION SOURCE (unrecogn ized section and content) DATE CREATED AUTHOR 06/27/2019 [facility] DATE CREATED AUTHOR AUTHOR'S ORGANIZ ATION 02/01/2020 [facility] DATE CREATED AUTHOR AUTHOR'S ORGANIZ ATION 06/23/2021 [facility] DATE CREATED AUTHOR AUTHOR'S ORGANIZ ATION 10/04/2021 [facility] [employer] DATE CREATED AUTHOR AUTHOR'S ORGANIZ ATION 07/27/2022 [facility] DATE CREATED AUTHOR AUTHOR'S ORGANIZ ATION 09/04/2023 [facility] DATE CREATED AUTHOR AUTHOR'S ORGANIZ ATION 07/10/2024 [facility] DATE CREATED AUTHOR AUTHOR'S ORGANIZ ATION 11/16/2024 [facility] DATE CREATED AUTHOR AUTHOR'S ORGANIZ ATION 03/01/2025 [facility] DATE CREATED AUTHOR AUTHOR'S ORGANIZ ATION 03/07/2025 [facility] DATE CREATED AUTHOR AUTHOR'S ORGANIZ ATION 03/19/2025 [facility] Care Teams (unrecognized sec tion and content) Team Status: Active Member Role Status Dates Grayson Hernandez MD Primary Care Provider Active Team Status: Active Member Role Status Dates Grayson Hernandez MD Primary Care Provider Active Start: October 08, 2024 Sam Tilley ProviderActiveStart: October 08, 2024 Team Status: Inactive Member Role Status Dates Grayson Heranndez MD Primary Care Provider Active Start: October 16, 2024 End: October 16Sam Covarrubias ProviderActiveStart: October 16, 2024 End: October 16, 2024Team MemberRelationshipSpecialtyStart DateEnd Date Grayson Hernandez MD PCP - Omfjabq91/26/19Team MemberRelationshipSpecialtyStart DateEnd Date Grayson Hernandez MD [address] [place] [address] (Fax) PCP - [facility]05/23/22 Grayson Hernandez MD [address] [place] [address] (Fax) [facility] - [facility]10/12/22 Grayson Hernandez MD [address] [place] [address] (Fax) PCP - [employer]1 Walker Monroy MD [address] [place] [address] Referring PhysicianNeurolog06/30/23 Tasia Irizarry MD [address] [place], [place] [address] Referring PhysicianCardiology06/30/23 Kirstie Mcneil LISW-S [address] [address] Social WorkerBehavioral Health06/30/23Team MemberRelationshipSpecialtyStart Date End Date Grayson Hernandez MD PCP - Riszzko99/26/19Team MemberRelationshipSpecialtyStart DateEnd Date Grayson Hernandez MD PCP - Rwjltzc48/26/19Team MemberRelationshipSpecialtyStart DateEnd Date Grayson Hernandez MD PCP - Ysxtymg28/26/19Team MemberRelationshipSpecialtyStart DateEnd Date Grayson Hernandez MD [address] [phone] (Fax) PCP - [facility]05/23/22 Grayson Hernandez MD [address] [phone] (Fax) PCP - GeneralFamaly Medicine10/12/22 Walker Monroy MD [address] [place] [address] Referring PhysicianNeurolog06/30/23 Tasia Irizarry MD [address] [place], [place] [address] Referring PhysicianCardiology06/30/23 Kirstie Mcneil LISW-S [address] [address] Social WorkerBehavioral Health06/30/23 Shannen Velazquez, ROGE Registered NurseFamily Medicine11/09/23Team MemberRelationshipSpecialtyStart Date End Date Grayson Hernandez MD [address] [place] [address] (Fax) PCP - [facility]05/23/22 Grayson Hernandez MD [address] [facility] [place] [address] (Fax) PCP - GeneralFamily Medicine10/12/22 [place] [address] [place] [address] Referring PhysicianNeurolog06/30/23 Tasia Irizarry MD [address] [place] [address] Referring PhysicianCardiology06/30/23 Kirstie Mcneil LISW-S [address] [facility] [address] [place] [address] Social WorkerBehavioral Health06/30/23 Shannen Velazquez, ROGE Registered NurseFamily Medicine11/09/23 Team Status: Inactive Member Role Status Dates Grayson Hernandez MD Primary Care Provider Active Start: March 08, 2024 End: March 08bdvaishnavi Womack MDAttending ProviderActiveStart: March 08, 2024 End: March 08, 2024 Team Status: Inactive Member Role Status Dates Grayson Hernandez MD Primary Care Provider Active Start: April 10, 2024 End: April 10bdvaishnavi Womack MDAttending ProviderActiveStart: April 10, 2024 End: April 10, 2024 Team Status: Inactive Member Role Status Dates Grayson Hernandez MD Primary Care Provider Active Start: April 10, 2024 End: April 11bdvaishnavi Womack , SHUKRIttending ProviderActiveStart: April 10, 2024 End: April 11, 2024Team MemberRelationshipSpecialtyStart DateEnd Date Grayson Hernandez MD [address] [phone] (Fax) PCP - [facility]1/ Grayson Hernandez MD [address] [place] [phone] (Fax) PCP - GeneralFamily Medicine10/12/22 Walker Monroy MD [address] [place] [address] Referring PhysicianNeurolog06/30/23 Tasia Irizarry MD [address] [place] [address] Referring PhysicianCardiology06/30/23 Kirstie Mcneil LISW-S [address] [place] [address] Social WorkerWell[facility]06/30/23 Shannen Velazquez, ROGE Registered NurseFamily Medicine11/09/23Team MemberRelationshipSpecialtyStart Date End Date Grayson Hernandez MD [address] [address] (Fax) PCP - [facility]1/ Grayson Hernandez MD [address] [address] (Fax) PCP - GeneralFamily Medicine10/12/22 Walker Monroy MD [address] [place] [address] Referring PhysicianNeurolog06/30/23 Tasia Irizarry MD [address] [place] [address] Referring PhysicianCardiology06/30/23 Kirstie Mcneil LISW-S [address] [place] [address] Social WorkerBehavioral Health06/30/23 Shannen Velazquez, ROGE Registered NurseFamily Medicine11/09/23Team MemberRelationshipSpecialtyStart Date End Date Grayson Hernandez MD [address] [place] [address] (Fax) PCP - [facility]05/23/2311 Grayson Hernandez MD [address] [place] [address] (Fax) PCP - GeneralFamily Medicine10/12/22 Walker Monroy MD [address] [place], [place] [phone] Referring PhysicianNeurolog06/30/23 Tasia Irizarry MD [address] [place] [address] Referring PhysicianCardiology06/30/23 Kirstie Mcneil LISW-S [address] [place] [address] Social WorkerBehavioral Health06/30/23 Shannen Velazquez, ROGE Registered NurseFamily Medicine11/09/23Team MemberRelationshipSpecialtyStart Date End Date Grayson Hernandez MD [address] [place] [address] (Fax) PCP - [facility]05/23/22 Grayson Hernandez MD [address] [place] [address] (Fax) PCP - GeneralFamily Medicine10/12/22 Walker Monroy MD [address] [place] [address] Referring PhysicianNeurolog06/30/23 Tasia Irizarry MD [address] [place] [address] Referring PhysicianCardiology06/30/23 Kirstie Mcneil LISW-S [address] [address] Social WorkerWell[facility]06/30/23 Shannen Velazquez RN Registered NurseFamily Medicine11/09/23Team MemberRelationshipSpecialtyStart Date End Date Grayson Hernandez MD [address] [place] [address] (Fax) PCP - [facility]05/23/22 Grayson Hernandez MD [address] [place] [address] (Fax) PCP - GeneralFamily Medicine10/12/22 Walker Monroy MD [address] [place] [address] Referring PhysicianNeurolog06/30/23 Tasia Irizarry MD [address] [place] [phone] Referring PhysicianCardiology06/30/23 Kirstie Mcneil LISW-S [address] [place] [address] Social WorkerBehavioral Health06/30/23 Shannen Velazquez, ROGE Registered NurseFamily Medicine11/09/23Team MemberRelationshipSpecialtyStart Date End Date Grayson Hernandez MD [address] [place] [address] PCP - [facility]05/23/22 Grayson Hernadnez MD [address] [place] [address] (Fax) PCP - GeneralFamily Medicine10/12/22 Walker Monroy MD [address] [place] [address] Referring PhysicianNeurology2 Tasia Irizarry MD [address] [place] [phone] Referring PhysicianCardiology06/30/23 Kirstie Mcneil LISW-S [address] [place] [address] Social WorkerBehavioral Health06/30/23 Shannen Velazquez RN Registered NurseFamily Medicine11/09/23Team MemberRelationshipSpecialtyStart Date End Date Grayson Hernandez MD [address] [place] [phone] (Fax) PCP - GeneralFamily Medicine10/12/22 Walker Monroy MD [address] [place] [address] Referring PhysicianNeurology2 Tasia Irizarry MD [address] [place] [address] Referring PhysicianCardiology06/30/23 Kirstie Mcneil LISW-S [address] [place] [address] Social WorkerBehavioral Health06/30/23 Shannen Velazquez RN Registered NurseFamily Medicine11/09/23Team MemberRelationshipSpecialtyStart Date End Date Grayson Hernandez MD [address] [place] [phone] (Fax) PCP - GeneralFamily Medicine10/12/22 Walker Monroy MD [address] [place] [address] Referring PhysicianNeurolog06/30/23 Tasia Irizarry MD [address] [place] [address] Referring PhysicianCardiology06/30/23 Kirstie Mcneil LISW-S [address] [place] [address] Social WorkerBehavioral Health06/30/23 Shannen Velazquez RN Registered NurseFamily Medicine11/09/23Team MemberRelationshipSpecialtyStart Date End Date Grayson Hernandez MD [address] [address] (Fax) PCP - GeneralFamily Medicine10/12/22 Walker Monroy MD [address] [place] [address] Referring PhysicianNeurolog06/30/23 Tasia Irizarry MD [address] [place] [address] Referring PhysicianCardiology06/30/23 Kirstie Mcneil LISW-S [address] [place] [phone] Social WorkerBehavioral Health06/30/23 Shannen Velazquez RN Registered NurseFamily Medicine11/09/23Team MemberRelationshipSpecialtyStart Date End Date Grayson Hernandez MD [address] [place] [phone] (Fax) PCP - GeneralFamily Medicine10/12/22 Walker Monroy MD [address] [place] [address] Referring PhysicianNeurolog06/30/23 Tasia Irizarry MD [address] [place] [address] Referring PhysicianCardiology06/30/23 Kirstie Mcneil LISW-S [address] [place] [address] Social WorkerGro[facility] Health06/30/23 Shannen Velazquez, RN Registered NurseFamily Medicine11/09/23Team MemberRelationshipSpecialtyStart Date End Date Grayson Hernandez MD [address] [phone] (Fax) PCP - GeneralFamily Medicine12/21/21Team MemberRelationshipSpecialtyStart DateEnd Date Grayson Hernandez MD [address] [phone] (Fax) PCP - GeneralFamily Medicine12/21/21 Name Effective Dates (start - stop) Status Members No Information Team MemberRelationshipSpecialtyStart DateEnd Date Grayson Hernandez MD [address] [place] [address] (Fax) PCP - GeneralFamily Medicine10/12/22 Walker Monroy MD [address] [place] [address] Referring PhysicianNeurolog06/30/23 Tasia Irizarry MD [address] [place] [address] Referring PhysicianCardiology06/30/23 Shannen Velazquez, RN Registered NurseFamily Medicine11/09/23Team MemberRelationshipSpecialtyStart Date End Date Grayson Hernandez MD [address] [place] [address] (Fax) PCP - GeneralFamily Medicine10/12/22 Walker Monroy MD [address] [place] [address] Referring PhysicianNeurology2 Tasia Irizarry MD [address] [place] [address] Referring PhysicianCardiology2 Shannen Velazquez, ROGE Registered NurseFamily Medicine11/09/23Team MemberRelationshipSpecialtyStart Date End Date Grayson Hernandez MD [address] [place] [phone] (Fax) PCP - GeneralFamily Medicine10/12/22 Walker Monroy MD [address] [place] [address] Referring PhysicianNeurology2 Tasia Irizarry MD [address] [place] [address] Referring PhysicianCardiology06/30/23 Shannen Velazquez, ROGE Registered NurseFamily Medicine11/09/23Team MemberRelationshipSpecialtyStart Date End Date Grayson Hernandez MD [address] [place] [phone] (Fax) PCP - GeneralFamily Medicine10/12/22 Walker Monroy MD [address] [place] [address] Referring PhysicianNeurology2 Tasia Irizarry MD [address] [place] [address] Referring PhysicianCardiology06/30/23 Shannen Velazquez, ROGE Registered NurseFamily Medicine11/09/23Team MemberRelationshipSpecialtyStart Date End Date Grayson Hernandez MD [address] [place] [phone] (Fax) PCP - GeneralFamily Medicine10/12/22 Walker Monroy MD [address] [place] [address] Referring PhysicianNeurology2 Tasia Irizarry MD [address] [place] [address] Referring PhysicianCardiology06/30/23 Shannen Velazquez, ROGE Registered NurseFamaly Medicine11/09/23Team MemberRelationshipSpecialtyStart Date End Date Grayson Hernandez MD [address] [place] [phone] (Fax) PCP - GeneralFamily Medicine10/12/22 Walker Monroy MD [address] [place] [address] Referring PhysicianNeurology2 Tasia Irizarry MD [address] [place] [address] Referring PhysicianCardiology06/30/23 Shannen Velazquez RN Registered NurseFamily Medicine11/09/23Team MemberRelationshipSpecialtyStart Date End Date Grayson Hernandez MD [address] [place] [address] (Fax) PCP - GeneralFamily Medicine10/12/22 Walker Monroy MD [address] [place] [address] Referring PhysicianNeurology2 Tasia Irizarry MD [address] [place] [address] Referring PhysicianCardiology06/30/23 Shannen Velazquez RN Registered NurseFamily Medicine11/09/23Te MemberRelationshipSpecialtyStart Date End Date Grayson Hernandez MD [address] [place] [address] (Fax) PCP - GeneralFamily Medicine10/12/22 Walker Monroy MD [address] [place] [address] Referring PhysicianNeurology2 Tasia Irizarry MD [address] [place] [address] Referring PhysicianCardiology06/30/23 Shannen Velazquez RN Registered NurseFamily Medicine11/09/23Team MemberRelationshipSpecialtyStart Date End Date Grayson Hernandez MD [address] [place] [address] (Fax) PCP - GeneralFamily Medicine10/12/22 Walker Monroy MD [address] [place] [address] Referring PhysicianNeurology2 Tasia Irizarry MD [address] [place] [address] Referring PhysicianCardiology2 Shannen Velazquez, ROGE Registered NurseFamily Medicine11/09/23Team MemberRelationshipSpecialtyStart Date End Date Grayson Hernandez MD [address] [place] [phone] (Fax) PCP - GeneralFamily Medicine10/12/22 Walker Monroy MD [address] [place] [address] Referring PhysicianNeurology2 Tasia Irizarry MD [address] [place] [address] Referring PhysicianCardiology06/30/23 Shannen Velazquez, ROGE Registered NurseFamily Medicine11/09/23Team MemberRelationshipSpecialtyStart Date End Date Grayson Hernandez MD [address] [place] [phone] (Fax) PCP - GeneralFamily Medicine10/12/22 Walker Monroy MD [address] [place] [address] Referring PhysicianNeurology2 Tasia Irizarry MD [address] [place] [address] Referring PhysicianCardiology2 Shannen Velazquez, ROGE [address] [place] [address] Registered NurseFamily Medicine11/09/23Team MemberRelationshipSpecialtyStart Date End Date Grayson Hernandez MD [address] [place] [address] (Fax) PCP - GeneralFamily Medicine10/12/22 Walker Monroy MD [address] [place] [address] Referring PhysicianNeurology2 Tasia Irizarry MD [address] [place] [address] Referring PhysicianCardiology06/30/23 Shannen Velazquez, ROGE [address] [facility] [address] [place] [address] Registered NurseFamily Medicine11/09/23Team MemberRelationshipSpecialtyStart Date End Date Grayson Hernandez MD (Fax) PCP - Wtwksah76/26/19Team MemberRelationshipSpecialtyStart DateEnd Date Grayson Hernandez MD (Fax) PCP - Ragfwwg19/26/19Team MemberRelationshipSpecialtyStart DateEnd Date Grayson Hernandez MD [address] [address] (Fax) PCP - GeneralFamily Medicine10/12/22 Grayson Hernandez MD [address] [address] (Fax) PCP - Medical [place] MA05/23/2511 Walker Monroy MD [address] [place] [address] Referring PhysicianNeurolog06/30/23 Tasia Irizarry MD [address] [place] [address] Referring PhysicianCardiology06/30/23 Shannen Velazquez, ROGE [address] [address] Registered NurseFamily Medicine11/09/23Team MemberRelationshipSpecialtyStart Date End Date Grayson Hernandez MD [address] [place] [address] (Fax) PCP - GeneralFamily Medicine10/12/22 Grayson Hernandez MD [address] [address] (Fax) PCP - Medical [place]05/23/2511 Walker Monroy MD [address] [place] [address] Referring PhysicianNeurolog06/30/23 Tasia Irizarry MD [address] [place] [address] Referring PhysicianCardiology2 Shannen Velazquez RN [address] [place] [address] Registered NurseFamily Medicine11/09/23Team MemberRelationshipSpecialtyStart Date End Date Grayson Hernandez MD [address] [place] [address] (Fax) PCP - GeneralFamily Medicine10/12/22 Grayson Hernandez MD [address] [place] [address] (Fax) PCP - Medical [place]05/23/2511 Walker Monroy MD [address] [place] [address] Referring PhysicianNeurology2 Tasia Irizarry MD [address] [place] [address] Referring PhysicianCardiology06/30/23 Shannen Velazquez RN [address] [facility] [address] [place] [address] [facility]11/09/23Te MemberRelationshipSpecialtyStart Date End Date Grayson Hernandez MD [address] [place] [address] (Fax) PCP - GeneralFamily Medicine10/12/22 Grayson Hernandez MD [address] [place] [address] (Fax) PCP - Medical [place] MA05/23/2511 Walker Monroy MD [address] [place] [address] Referring PhysicianNeurolog06/30/23 Tasia Irizarry MD [address] [place] [address] Referring PhysicianCardiology06/30/23 Shannen Velazquez, ROGE [address] [place] [address] Registered NurseFamily Medicine11/09/23 Team Status: Active Member Role/Relationship Status Dates Grayson Hernandez MD Primary Care Provider Active Team Status: Inactive Member Role/Relationship Status Dates Grayson Hernandez MD Primary Care Provider Active Start: March 11, 2025 End: March 11, 2025Pafigueroa Morrison APRN CNA CAREGIVER-CAttending Provider ActiveStart: March 11, 2025 End: March 11, 2025 Team Status: Inactive Member Role/Relationship Status Dates Grayson Hernandez MD Primary Care Provider Active Start: March 11, 2025 End: March 11, 2025Pafigueroa Morrison APRN CNA CAREGIVER-CAttending Provider ActiveStart: March 11, 2025 End: March 11, 2025 Team Status: Inactive Member Role/Relationship Status Dates DARRELL Griffin RN CNA CAREGIVER-C Attending Provider Active Start: March 11, 2025 End: March 11, 2025Team MemberRelationshipSpecialtyStart DateEnd Date Grayson Hernandez MD [address] [place] [address] PCP - Human Grayson Hernandez MD [address] [place] [address] PCP - Devoted1 Grayson Hernandez MD [address] [place] [address] (Fax) PCP - GeneralFamily Medicine10/12/22 Grayson Hernandez MD [address] [place] [address] (Fax) PCP - Medical [place] MA05/23/2511 Walker Monroy MD [facility] [place] [address] Referring PhysicianNeurolog06/30/23 Tasia Irizarry MD [address] [place] [address] Referring PhysicianCardiology06/30/23 Shannen Velazquez, ROGE [address] [place] [address] Registered NurseFamily Medicine11/09/23Team MemberRelationshipSpecialtyStart Date End Date Grayson Hernandez MD [address] [address] (Fax) PCP - Devoted05/23/2311 Grayson Hernandez MD [address] [place] [address] (Fax) PCP - GeneralFamily Medicine10/12/22 Grayson Hernandez MD [address] [place] [address] (Fax) PCP - Medical [place] MA05/23/2511 Walker Monroy MD [address] [place] [address] Referring PhysicianNeurology2 Tasia Irizarry MD [address] [place] [address] Referring PhysicianCardiology06/30/23 Shannen Velazquez RN [address] [place] [address] Registered NurseFamily Medicine11/09/23Team MemberRelationshipSpecialtyStart Date End Date Grayson Hernandez MD [address] [place] [address] PCP - GeneralFamily Medicine10/12/22 Grayson Hernandez MD [address] [place] [address] PCP - Medical [place] 05/23/2511 Walker Monroy MD [address] [place] [address] Referring PhysicianNeurolog06/30/23 Tasia Irizarry MD [address] [place] [address] Referring PhysicianCardiology06/30/23 Shannen Velazquez RN [address] [place] [address] Registered NurseFamily Medicine11/09/23 Scheduled Active and Recently Administ ered Medications (unrecognized section and content) Medication Order//03/2024 sodium chloride flush 0.9 % injection 5-40 mL 5-40 mL, IntraVENous, EVERY 12 HOURS SCHEDULED (2 times per day), First dose on Jesica 09/01/23 at 2100, Until Discontinued, For Line Patency: Peripheral IV = 5 mL; Midline or Central Line = 10 mL/lumen.If following IV push medication, administer flush at same rate as the IV push. Flush volume is determined by type of infusion therapy being given. For non-viscous solutions use: Peripheral IV = 5 mL Midline or Central Line = 10 mL/lumen For viscous solutions (i.e. blood components, parenteral nutrition, contrast media, or after obtaining blood sample) use: Peripheral IV = 10 mL Midline or CentralLine = 20 mL/lumen, Pre-Procedure(Cath) * 2100 (Due) sodium chloride flush 0.9 % injection 5-40 mL 5-40 mL, IntraVENous, EVERY 12 HOURS SCHEDULED (2 times per day), First dose on Jesica 09/01/23 at 2100, Until Discontinued, For Line Patency: Peripheral IV = 5 mL; Midline or Central Line = 10 mL/lumen.If following IV push medication, administer flush at same rate as the IV push. Flush volume is determined by type of infusion therapy being given. For non-viscous solutions use: Peripheral IV = 5 mL Midline or Central Line = 10 mL/lumen For viscous solutions (i.e. blood components, parenteral nutrition, contrast media, or after obtaining blood sample) use: Peripheral IV = 10 mL Midline or CentralLine = 20 mL/lumen, Recovery(Cath) * 2100 (Due) Medication Order/ 0.9 % sodium chloride infusion IntraVENous, at [...] 1351, Until Jesica 09/01/23 at 1407, Intra-procedure(Cath) * 1349 (Given - Provider: Isabel Iyer RN) midazolam (VERSED) injection (CANCELED) PRN, Starting on Jesica 09/01/23 at 1351, Until Jesica 09/01/23 at 1407, Intra-procedure(Cath) * 1349 (Given - Provider: Isabel Iyer RN) * 1352 (Given - Provider: Isabel Iyer RN) * 1354 (Given - Provider: Isabel Iyer RN) * 1359 (Given - Provider: Isabel Iyer RN) * 1401 (Given - Provider: Isabel Iyer RN) sodium [...] For viscous solutions (i.e. blood components, parenteral nutrition,contrast media, or after obtaining blood sample) use: Peripheral IV = 10 mL Midline or Central Line= 20 mL/lumen, Pre-Procedure(Cath) sodium chloride flush 0.9 [...] For viscous solutions (i.e. blood components, parenteral nutrition,contrast media, or after obtaining blood sample) use: Peripheral IV = 10 mL Midline or Central Line= 20 mL/lumen, Recovery(Cath) Goals (unrecognized section and [...] BE BASED ON THE PRIMARY CLINICAL RECORDS. [facility]. provides no warranty or guarantee of the accuracy or completeness of information in this document.
--- NOTE | 2025-05-20 10:36 | ECG_ITS ---
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 Measurements Intervals [place] Rate: 58 P: 64 VT: 183 QRS: 70 QRSD: 94 T: 46 QT: 434 QTc: 426 Interpretive Statements SINUS BRADYCARDIA WITH SINUS ARRHYTHMIA [place] ECG Compared to ECG 11/06/2024 13:20:18 ST (T wave) deviation no longer present Electronically Signed On 05-20-2025 14:24:27 EST by YESSENIA CONNOLLY M.D.
--- NOTE | 2025-05-20 10:36 | XR_ITS ---
The [address] [address] Patient Name: DIONICIO DELANEY MRN: [id number] date: 1950 Sex: F Assigned Patient Location: CARD Current Patient Location: LAB Accession/Order Number: [id number] Exam Date: 05/20/2025 10:50 Report Date: 05/20/2025 11:40 At the request of: ROSA IRIZARRY Procedure: XR chest 2V PA AND LATERAL CHEST: CLINICAL HISTORY: Mitral Valve Stenosis, CAD Multiple Vessels, Palpitations COMPARISON: None There is prior median sternotomy and valve replacement. There is no developing consolidation, effusion or pneumothorax. The cardiac, hilar and mediastinal silhouettes are within normal limits. There is no vascular congestion. The visualized bony thorax is intact. S-shaped thoracolumbar scoliotic curvature and endplate spurring are seen XR/XR chest 2V IMPRESSION: NO ACUTE CARDIOPULMONARY ABNORMALITY. Impression dictated by: Lu Colindres M.D. 05/20/2025 11:40 AM Dictation Location: [employer] Electronically authenticated by: [id number] Y Date: 05/20/2025 11:40
[2025-05-20 11:40] LABS: Hematocrit 36.1 % (36.0-48.0); Hemoglobin 12.1 g/dL (12.0-16.0); Immature Granulocytes Abs Auto 0.04 10^3/uL (0.00-0.03); Immature Granulocytes Pct Auto 0.3 % (0.0-0.5); Lymphocytes Absolute Auto 3.0 10^3/uL (1.2-3.8); Mean Corpuscular HGB Conc 33.5 g/dL (29.9-35.2); Mean Corpuscular Hemoglobin 28.8 pg (26.7-34.0); Mean Corpuscular Volume 86.0 fL (81.0-99.0); Platelet Count 258 10^3/uL (150-450); Red Blood Count 4.20 10^6/uL (4.20-5.40); White Blood Count 11.5 10^3/uL (4.0-11.0)
[2025-05-20 12:29] LABS: Alanine Aminotransferase 17 U/L (14-59); Albumin Globulin Ratio 0.9; Albumin Level 3.6 g/dL (3.4-5.0); Alkaline Phosphatase 128 U/L (46-116); Anion Gap 16.1; Aspartate Amino Transferase 13 U/L (15-37); Blood Urea Nitrogen 23.0 mg/dL (7.0-18.0); Calcium 9.2 mg/dL (8.5-10.1); Carbon Dioxide 24.5 mmol/L (21.0-32.0); Chloride 104 mmol/L (98-107); Cholesterol 260 mg/dL (<=200); Estimated GFR (African America 32 (>=60 mL/min/1.73m^2); Estimated GFR (Non-African Ame 26 (>=60 mL/min/1.73m^2); Globulin 4.0 g/dL; Glucose 115 mg/dL (74-106); HDL Cholesterol 74 mg/dL (40-60); Magnesium 1.8 mg/dL (1.8-2.4); Potassium 3.6 mmol/L (3.5-5.1); Sodium 141 mmol/L (136-145); Total Protein 7.6 g/dL (6.4-8.2); Triglycerides 127 mg/dL (<=150); VLDL CHOLESTEROL 25.4 mg/dL
== END 2025-05-20 10:13 | disposition home or self-care (01) ==
LOC: CARD 10:13
PROVIDERS: PCP Family Medicine
DX: I05.0 Rheumatic mitral stenosis (principal); I25.10 Atherosclerotic heart disease of native coronary artery without angina pectoris; E78.5 Hyperlipidemia, unspecified; R00.2 Palpitations; G93.32 Myalgic encephalomyelitis/chronic fatigue syndrome; N25.81 Secondary hyperparathyroidism of renal origin; E03.9 Hypothyroidism, unspecified; E55.9 Vitamin D deficiency, unspecified; E11.21 Type 2 diabetes mellitus with diabetic nephropathy
CPT/HCPCS: 36415; 71046; 80053; 80061; 82306; 83036; 83735; 84439; 84443; 84481; 85025; 93005

== ENCOUNTER 2025-05-20 10:59 | Outpatient (OUT) | payer MEDICARE, SELFPAY ==
--- OUTSIDE RECORDS SUMMARY | 2025-05-20 11:03 | XMS_ITS | Clinical Summary ---
Author Organization [employer] tem Address [id number] [address] [place] [address] Care Team Providers Care Dietitian Therapeutic Name Role Phone Grayson Espitia MD Primary [...] 30 tablet 11/23/2022ctive Active Problems ProblemNoted DateDiagnosed PmpgUpgrtb41/01/2023erebrovascular accident (CVA) 11/19/2022[place] (cerebral vascular accident)12/31/2021 Immunizations ImmunizationAdministration DatesNext DueCOVID-19, mRNA, LNP-S, PF, 100mcg/0.5mL Dose08/11/2021,04/27/2021,08/30/2020,08/02/2020Influenza High Dose Preservative Free IM06/23/2021,03/25/2018Influenza, Injectable, quadrivalent (PF)03/01/2020, 03/25/2018,03/01/2016Influenza, Recombinant, Quadrivalent, Injectable, Preserv 02/28/2020Pneumococcal Conjugate 13-Gmegvq3912/20/2016 Social History Tobacco UseTypesPacks/DayYears UsedDateSmoking Tobacco: NeverSmokeless Tobacco: Never Tobacco Cessation:Counseling Given: Not Answered Alcohol UseStandard Drinks/WeekCommentsNot Currently0 (1 standard drink = 0.6 oz pure alcohol)PHQ-2AnswerDate RecordedTotal Auplm2752ChildcareAnswerDate VyyyssobTqumvtvvuAedzrib25/12/2019EmploymentAnswerDate RecordedEmploymentUnknown 11/01/2018Hunger ScreeningAnswerDate RecordedWithin the past 12 months we worried whether our food would run out before we got money to buy more.Never True01/06/2023Within the past 12 months the food we bought just didn't last and we didn't have money to get more.Never True3Purpose - LifeAnswerDate RecordedPurpose and direction in isiyZepyfiy25/11/2021CommentsNoSex and Gender InformationValueDate RecordedSex Assigned at BirthNot on fileLegal Sex Sezvvj5512/26/2014 11:43 AM EDTGender IdentityNot on fileSexual OrientationNot on file Last Filed Vital Signs Vital SignReadingTime TakenCommentsBlood Cevoviec875/43001/06/2023 12:57 PM EDT Ruuqv840811/23/2022 3:40 PM EZMUkwelexpsmt38.7 ??C (98.1 ??F)11/23/2022 3:40 PM EDTRespiratory Kxbb427901/06/2023 12:57 PM EDTOxygen Fvoeousnfo35%11/23/2022 3:40 PM EDTInhaled Oxygen Concentration--Fkgdbx86.3 kg (155 lb)01/06/2023 12:57 PM YQFTyfjko626.5 cm (5' 2.01 )01/06/2023 12:57 PM EDTBody Mass Index28.34 01/06/2023 12:57 PM EDT Plan of Treatment Health MaintenanceDue DateLast DoneCommentsDepression Zjdvbcweq66/19/1961Tobacco Bvjfbtphe83/19/1961DTaP,Tdap and Td Vaccines (1 - Tdap)12/09/1967Zoster (Shingles) Vaccine (1 of 2)1998RSV ( or age 60+ yrs) (1 - 1-dose 75+ series)12/09/2023Fall Risk Dkyarzbur20/OVID-19 Vaccine (2024- season)/, 04/27/2021, 08/30/2020, Additional history existsInfluenza Pwfvgoc16/05/2021, 03/01/2020, 02/28/2020, Additional history exists Goals GoalPatient [...]
--- OUTSIDE RECORDS SUMMARY | 2025-05-20 11:03 | XMS_ITS | Clinical Summary ---
Author Organization [facility] Address [address] [place] [address] Care Team Providers Care Snow Technician Name Role Phone Unavailable Primary Care Provider Unavailabl e Social History Tobacco UseTypesPacks/DayYears UsedDateSmoking Tobacco: Never AssessedUT Safety & EnvironmentAnswerDate RecordedFear of Current or Ex-PartnerNot on file 07/14/2023Emotionally AbusedNot on file07/14/2023hysically AbusedNot on file 07/14/2023Sexually AbusedNot on file4Physically or Sexually AbusedNot on file07/14/2023CommentsUnknownSex and Gender InformationValueDate RecordedSex Assigned at BirthNot on fileLegal BpeWupckq36/29/2022 10:47 PM EDT Gender IdentityNot on fileSexual OrientationNot on file Plan of Treatment Health MaintenanceDue DateLast DoneCommentsMedicare Annual Wellness (AWV) 1950Depression Mzkjgrllc71/19/1961Adult Zjmanzl6412/08/1970Pneumococcal Vaccine: 50+ Years (1 of 1 - PCV)1998Zoster Vaccines (1 of 2)1998 Fall Risk Wnivcjnku30/19/2014COVID-19 Vaccine (1 - 2024- season)2025 Influenza Vaccine [...] Mcclain TypeRelation to PatientDate of BirthPhone Billing AddressPersonal/PnbynkHkmx19/[birth year][address] [address]
--- OUTSIDE RECORDS SUMMARY | 2025-05-20 11:03 | XMS_ITS | Encounter Summary ---
Author Organization [facility] Address [address] [place] [address] Care Team Providers Care Senior Marketing Manager Name Role Phone Grayson Espitia MD Primary Care Provider [phone] Walker Monroy MD Unavailable Farhad Harper MD Unavailable [phone] Shannen Velazquez RN Unavailable [phone] Grayson Espitia MD Unavailable [phone] Encounter Details DateTypeDepartmentCare Team (Latest Contact Info)Kqbamxmnpzi98/12/2025Patient Outreach [facility] [address] [place] [phone] Shannen Velazquez, RN [address] [facility] [address] [place] [address] Social History Tobacco UseTypesPacks/DayYears UsedDateSmoking Tobacco: NeverSmokeless Tobacco: NeverAlcohol UseStandard Drinks/WeekCommentsYes1 (1 standard drink = 0.6 oz pure alcohol)Caffeine: 2-4 cupsSocial Connection and Isolation PanelAnswerDate RecordedIn a typical week, how many times do you talk on the phone with family, friends, or neighbors?More than three times a week09/05/2023How often do you get together with friends or relatives?Once a week09/05/2023How often do you attend restorationism or orthodoxy services?More than 4 times per year09/05/2023o you belong to any clubs or organizations such as restorationism groups, unions, fraternal or athletic groups, or school groups?Yes09/05/2023How often do you attend meetings of the clubs or organizations you belong to?More than 4 times per year09/05/2023 Are you , , , , never , or living with a partner?Gbnfsoq1209/05/2023UDIT-CAnswerDate RecordedQ1: How often do you have a [...] hard at all09/05/2023HQ-2AnswerDate RecordedPatient Health Questionnaire-2 Score1 03/05/2025[facility] [place] [facility] Occup[facility] - Occupational Stress QuestionnaireAnswerDate RecordedDo you feel stress - tense, restless, nervous, or anxious, or unable to sleep at night because yourmind is troubled all the time - these days?To some hxgqmf8409/05/2023Exercise Vital SignAnswerDate Recorded On average, how many [...] highest degree you have received?Some college, no xkodeu273 CommentsNoSex and Gender InformationValueDate RecordedSex Assigned at BirthNot on fileLegal UhjAmtcws62/15/2023 6:51 PM EDTGender IdentityNot on fileSexual OrientationNot [...] has to have an EKG done at [facility] and will have labs done on 05/20. States he take pt to do labs for PCP on 05/21. Discussed that CM can fax labs to [facility] andshe can have labs done all together. They will fax PCP lab results to him. Howard is agreeable states I didn't think about doing that . States pt is eating more. Feels she is doing well. No questions or concerns at this time. Encouraged to call when needs arise. <May 03, 2025, 16:11 - Shannen Velazquez RN> faxed labs to [facility] for appt in [place]. <May 03, 2025, 16:15 - Shannen Velazquez RN> faxed Dr Womack for last ov notes. <May 06, 2025, 08:28 - Shannen Velazquez RN> labs were faxed successfully to [facility]. documented in this encounter Plan of Treatment DateTypeDepartmentCare Team (Latest Contact Info)Drczmrutafc80/30/2025 3:30 PM ESTOffice Visit [facility] [facility] [address] [place] [address] Grayson Espitia MD [address] [place] [address] (Fax) 06/05/2025 2:00 PM ESTOffice Visit [facility] [address] [place] [address] Grayson Espitia MD [address] [place] [address] (Fax) 07/08/2025 2:30 PM ESTOffice Visit [facility] [facility] [address] [place] [address] Grayson Espitia MD [address] [place] [address] (Fax) 09/04/2025 2:00 PM EDTOffice Visit [facility] [address] [place] [address] Grayson Espitia MD [address] [place] [address] (Fax) 11/05/2025 1:05 PM EDTOffice Visit [facility] [address] [place] [address] Lula Gasca MD [address] [place] [address] documented as of this encounter Visit Diagnoses [...] MemberRelationshipSpecialtyStart DateEnd Date Grayson Espitia MD [address] [place] [address] PCP - GeneralFamily Medicine10/12/22 Grayson Espitia MD [address] [place] [address] PCP - Medical [place]/06/17 Walker Monroy MD [address] [place] [address] Referring PhysicianNeurolog06/30/23 Farhad Harper MD [address] [place] [address] Referring PhysicianCardiology2 Shannen Velazquez, ROGE [address] [place] [address] Registered NurseFamily Medicine11/09/23documented as of this encounter
--- OUTSIDE RECORDS SUMMARY | 2025-05-20 11:03 | XMS_ITS | Encounter Summary ---
Author Organization [facility] Address [address] [place] [address] Care Team Providers Care Temperer Name Role Phone Grayson Espitia MD Primary Care Provider [phone] Walker Monroy MD Unavailable Farhad Harper MD Unavailable [phone] Shannen Velazquez RN Unavailable [phone] Grayson Espitia MD Unavailable [phone] Encounter Details DateTypeDepartmentCare Team (Latest Contact Info)Hpkduhtthcw60/22/2025Patient Outreach [facility] [address] [place] [phone] Shannen Velazquez, ROGE [address] [place] [address] Social History Tobacco UseTypesPacks/DayYears UsedDateSmoking Tobacco: NeverSmokeless Tobacco: NeverAlcohol UseStandard Drinks/WeekCommentsYes1 (1 standard drink = 0.6 oz pure alcohol)Caffeine: 2-4 cupsSocial Connection and Isolation PanelAnswerDate RecordedIn a typical week, how many times do you talk on the phone with family, friends, or neighbors?More than three times a week09/05/2023How often do you get together with friends or relatives?Once a week09/05/2023How often do you attend uatsdin or christianity services?More than 4 times per year09/05/2023o you belong to any clubs or organizations such as uatsdin groups, unions, fraternal or athletic groups, or school groups?Yes09/05/2023How often do you attend meetings of the clubs or organizations you belong to?More than 4 times per year09/05/2023 Are you , , , , never , or living with a partner?Ostvret9309/05/2023UDIT-CAnswerDate RecordedQ1: How often do you have a [...] hard at all09/05/2023HQ-2AnswerDate RecordedPatient Health Questionnaire-2 Score1 03/05/2025[facility] [place] [facility] - Occupational Stress QuestionnaireAnswerDate RecordedDo you feel stress - tense, restless, nervous, or anxious, or unable to sleep at night because yourmind is troubled all the time - these days?To some jkjjdf0109/05/2023Exercise Vital SignAnswerDate Recorded On average, how many [...] InformationValueDate RecordedSex Assigned at BirthNot on fileLegal YmyCfnxoq50/15/2023 6:51 PM EDTGender IdentityNot on fileSexual OrientationNot [...] Plan of Treatment DateTypeDepartmentCare Team (Latest Contact Info)Inamaqrjgvh47/30/2025 3:30 PM ESTOffice Visit [facility] [place] [facility] [address] [facility] [address] [place] [address] Grayson Espitia MD [address] [facility] [address] [place] [address] (Fax) 06/05/2025 2:00 PM ESTOffice Visit [facility] [address] [place] [address] Grayson Espitia MD [address] [place] [address] (Fax) 07/08/2025 2:30 PM ESTOffice Visit [facility] [address] [place] [address] Grayson Espitia MD [address] [place] [address] (Fax) 09/04/2025 2:00 PM EDTOffice Visit [facility] [address] [place] [address] Grayson Espitia MD [address] [place] [address] (Fax) 11/05/2025 1:05 PM EDTOffice Visit [facility] [facility] [address] [place] [address] Lula Gasca MD [address] [place] [address] documented as of this encounter Visit Diagnoses Diagnosis Acquired hypothyroidism- Primary Unspecified hypothyroidism Benign essential hypertension Essential hypertension, benign documented in this encounter Additional Health Concerns AssessmentNoted TimePHQ-9 Depression Total Score: 2:00 PM EST documented as of this encounter Care Teams Team MemberRelationshipSpecialtyStart DateEnd Date Grayson Espitia MD [address] [place] [address] (Fax) PCP - GeneralFamily Medicine10/12/22 Grayson Espitia MD [address] [place] [address] PCP - Medical [place] MA//06/17 Walker Monroy MD [address] [place] [address] Referring PhysicianNeurolog06/30/23 Farhad Harper MD [address] [place] [address] Referring PhysicianCardiology2 Shannen Velazquez, ROGE [address] [facility] [address] [place] [address] Registered NurseFamily Medicine11/09/23documented as of this encounter
--- OUTSIDE RECORDS SUMMARY | 2025-05-20 11:03 | XMS_ITS | Clinical Summary ---
Author Organization [facility] Address [address] [place] [address] Care Team Providers Care Mechanical Engineering Specialist Name Role Phone Grayson Espitia MD Primary Care Provider [phone] Allergies Active AllergyReactionsCriticalityNoted LlpiTrpiyukvXiwfd19/19/2019 Medications MedicationSigDispense QuantityRefillsLast FilledStart DateEnd DateStatus traZODone [...] InformationValueDate RecordedSex Assigned at BirthNot on fileLegal MquAlclpk25/03/2020 2:09 PM EST Gender IdentityNot on fileSexual OrientationNot on file Last Filed Vital Signs Vital SignReadingTime TakenCommentsBlood Rmthwiva698/72006/06/2019 3:03 PM EST Zekem261606/06/2019 3:03 PM IECJvftbcernwj06 ??C (98.6 ??F)06/06/2019 8:05 AM EST Respiratory Gmpr595106/06/2019 8:05 AM ESTOxygen Jofksmutfz95%06/06/2019 3:03 PM ESTInhaled Oxygen Concentration--Iiekpu65.4 kg (142 lb)06/06/2019 8:40 AM EST Rkytkf771.5 cm (5' 2 )06/06/2019 8:40 AM ESTBody Mass Index25.9706/06/2019 8:40 AM EST Plan of Treatment Not on file Medical Devices ImplantedTypeAreaManufacturerDevice IdentifierShelf Expiration DateModel / Serial / LotClosure Starclose Se - [id number] Implanted:Qty: 1 on 06/06/2019 [facility]ABBOTT [id number] / / Insurance Advance Directives For more information, please contact: [phone] * Full Code (Latest Code Status on File) Date ActivatedDate InactivatedComments06/06/2019 9:00 AM Care Teams Team MemberRelationshipSpecialtyStart DateEnd Date Grayson Espitia MD PCP - GeneralFamily Medicine05/29/19
--- OUTSIDE RECORDS SUMMARY | 2025-05-20 11:03 | XMS_ITS | Clinical Summary ---
Author Organization [facility] Address [address] [facility] [place] [address] Care Team Providers Care Program Analyst Name Role Phone Grayson Espitia MD Primary Care Provider [phone] Source Comments The following information is NOT included in Care Everywhere downloads:Psychiatric notes, ECG results, Cardiac Rehab notes, Pulmonary Function notes, data from SmartForms (includes but not limited toPregnancy data,audiograms, eye exams, pre-surgical evaluation notes, well-child exam data).[facility] Allergies Active AllergyReactionsCriticalityNoted DateCommentsLatexAnaphylactic ShockHigh 05/10/2019 [...] Active Problems ProblemNoted DateDiagnosed DateAcute postoperative respiratory hqcpugw5408/02/2019 Xbagwowexcdaec74/12/2020Cervical stenosis of spinal canal08/02/2019Fall, initial sibttxsod13/11/2020Acute cerebral cgdoifhpnt61/15/2020CAD, multiple vessel 07/03/2019Coronary artery disease involving [place] coronary artery of [place] heart without angina pectorisHx of CABGS/P AVRParoxysmal atrial fibrillationH/O: CVA (cerebrovascular accident)Type 2 diabetes mellitus with other specified complicationElevated INRChronic anemiaAcute kidney injury superimposed on chronic kidney diseaseHerpes zoster without complicationHypertension, unspecified typeHyperlipidemia, unspecified hyperlipidemia typeGastroesophageal reflux disease, esophagitis presence not specified Immunizations ImmunizationAdministration DatesNext DueInfluenza, injectable, high dose seasonal, trivalent, preservative free (KQK=867)03/25/2018Influenza, injectable, quadrivalent, preservative free (SSF=725)03/01/2016Influenza, injectable, recombinant, quadrivalent, preservative free (QZL=214)02/28/2020Pneumococcal conjugate 13 valent (PCV13) (XNU=734)12/20/2016 Social History Tobacco UseTypesPacks/DayYears UsedDateSmoking Tobacco: NeverSmokeless Tobacco: NeverCommentsUnknownSex and Gender InformationValueDate RecordedSex Assigned at BirthNot on fileLegal GbmBwaypj68/11/2020 5:46 PM EDTGender Identity Not on fileSexual OrientationNot on file Last Filed Vital Signs Vital SignReadingTime TakenCommentsBlood Dazxrkzb100/5703 6:00 AM EDT Eosyu074408/07/2019 6:00 AM WAEAfxwokvxheo37.8 ??C (98.3 ??F)08/07/2019 6:00 AM EDTRespiratory Ohls300108/07/2019 6:00 AM EDTOxygen Rsdotwzbsy60%08/07/2019 6:00 AM EDTInhaled Oxygen Concentration--Swlnju70.4 kg (148 lb 9.6 oz)08/02/2019 1:03 AM FLGMtgmie421.5 cm (5' 2 )08/01/2019 11:38 PM EDTBody Mass Index27.18 08/01/2019 11:38 PM EDT Plan of Treatment Health MaintenanceDue DateLast DoneCommentsHepatitis C Rnoznegf62/19/1967Tdap Kxeyetu5312/08/1966Hepatitis A (HAV) Vaccine (optional start 19+ years)12/09/1967 Shingles (RZV) Vaccine (1 of 2)1998Hepatitis B (HBV) Vaccine (optional start 60+ years)2008one Ifbefofcnolh19/19/2014Pneumococcal Vaccine(s) (50+ yrs) (2 of 2 - PCV20 or PCV21)Annual Wellness Visit (G0438)1Basic Metabolic Panel/, 08/06/2019, 08/05/2019, Additional history existsRSV vaccine (adult) (1 - 1-dose 75+ series) 4COVID-19 Vaccine (4 - 2024- season)/10/2020, 08/30/2020, 08/02/2020Influenza Vaccine (#1), 03/25/2018, 03/01/2016Pap SmearDiscontinued Procedures Procedure NamePriorityDate/TimeAssociated DiagnosisCommentsBASIC METABOLIC PANEL Nfunsqd3708/07/2019 2:52 AM EDT from Last 3 Months or Most Recently Relevant to Health Maintenance Results * (ABNORMAL) BASIC METABOLIC PANEL (08/07/2019 2:52 AM EDT)ComponentValueRef RangeTest MethodAnalysis TimePerformed AtPathologist FshbuppyqSasygge917(H)80 - 116 mg/dL08/07/2019 3:38 AM [facility] UFMEXXHXONMtpeoa883(L)135 - 148 mmol/L08/07/2019 3:38 AM [facility] LABORATORYPotassium3.93.3 - 5.3 mmol/L08/07/2019 3:38 AM [facility] LABORATORYCarbon Depjkke2601 - 30 mmol/L08/07/2019 3:38 AM [facility] SFJIYOFKNFYhbaafmj48698 - 111 mmol/L 08/07/2019 3:38 AM [facility] LABORATORYBlood Urea Exvrtysc377 - 22 mg/dL08/07/2019 3:38 AM [facility] LABORATORYCreatinine1.90(H)0.50 - 1.10 mg/dL08/07/2019 3:38 AM [facility] LABORATORYCalcium8.78.4 - 10.4 mg/dL08/07/2019 3:38 AM [facility] LABORATORYAnion Czw901 - 1303 3:38 AM [facility] LABORATORYEstimated GFR (CKD-EPI)26(L)>=60 mL/min/1.54adg4808/07/2019 3:38 AM [facility] LABORATORYSpecimen (Source) Anatomical Location / LateralityCollection Method / VolumeCollection Time Received TimeBloodBLOOD SPECIMEN / UnknownVenipuncture / Uejovul2508/07/2019 2:52 AM EDT08/07/2019 3:09 AM EDT Narrative Authorizing ProviderResult TypeResult StatusCharjo ann [place] MD98 GENERAL LABFinal ResultPerforming OrganizationAddressCity/State/ZIP CodePhone Number S PATHOLOGY LABORATORY [address] [place] [phone] from Last 3 Months or Most Recently Relevant to Health Maintenance Insurance [facility] Address: [facility] [address] [place] [phone] Advance Directives * Full Code (Latest Code [...] Team MemberRelationshipSpecialtyStart DateEnd Date Grayson Espitia MD [address] [place], [place] [address], [place] [address] [facility] - [facility]
--- OUTSIDE RECORDS SUMMARY | 2025-05-20 11:03 | XMS_ITS | Encounter Summary ---
Author Organization [facility] Address [address] [place] [address] Care Team Providers Care Software Integrator Name Role Phone Grayson Espitia MD Primary Care Provider Walker Monroy MD Unavailable Farhad Harper MD Unavailable [phone] Shannen Velazquez RN Unavailable [phone] Grayson Espitia MD Unavailable [phone] Reason for Visit * ReasonOnset DateCommentsCare Cvswavhgvptm05/22/2025 Encounter Details DateTypeDepartmentCare Team (Latest Contact Info)Dstsqvacvas82/22/2025Telephone [facility] [address] [phone] Pauly Huber MA Care Coordination Social History [...] week09/05/2023How often do you attend adventist or mu-ism services?More than 4 times per year09/05/2023o you belong to any clubs or organizations such as adventist groups, unions, fraternal or athletic groups, or school groups?Yes09/05/2023How often do you attend meetings of the clubs or organizations you belong to?More than 4 times per year09/05/2023 Are you , , , , never , or living with a partner?Vcsymeg4709/05/2023UDIT-CAnswerDate RecordedQ1: How often do you have a [...] all09/05/2023HQ-2AnswerDate RecordedPatient Health Questionnaire-2 Score1 03/05/2025[facility] [place] [facility] - Occupational Stress QuestionnaireAnswerDate RecordedDo you feel stress - tense, restless, nervous, or anxious, or unable to sleep at night because yourmind is troubled all the time - these days?To some yhglfs9309/05/2023Exercise Vital SignAnswerDate Recorded On average, how many [...] highest degree you have received?Some college, no tzhnby543 CommentsNoSex and Gender InformationValueDate RecordedSex Assigned at BirthNot on fileLegal RczUenqhj25/15/2023 6:51 PM EDTGender IdentityNot on fileSexual OrientationNot on fileOccupationIndustryJob Start DateJob End DateRetiredNot on fileNot on fileNot on filedocumented as of this encounter Miscellaneous Notes * Telephone Encounter - Pauly Huber MA - 05/13/2025 10:31 AM EST Copied from August, this is Howard [place]. I have a prescription for Katelyn that [...] of me, you can reach me at [phone]. Thank you and have a blessed day by now. documented in this encounter Plan of Treatment DateTypeDepartmentCare Team (Latest Contact Info)Kcbhqrlzkyu31/30/2025 3:30 PM ESTOffice Visit [facility] [address] [facility] [address] [place] [address] Grayson Espitia MD [address] [facility] [address] [place] [address] (Fax) 06/05/2025 2:00 PM ESTOffice Visit [facility] [address] [place] [address] Grayson Espitia MD [address] [place] [address] (Fax) 07/08/2025 2:30 PM ESTOffice Visit [facility] [address] [place] [address] Grayson Espitia MD [address] [place] [address] (Fax) 09/04/2025 2:00 PM EDTOffice Visit [facility] [address] [facility] [address] [facility] [address] [place] [address] Grayson Espitia MD [address] [place] [address] (Fax) 11/05/2025 1:05 PM EDTOffice Visit [facility] [address] [place] [phone] Lula Gasca MD [address] [place] [address] documented as of this encounter Visit Diagnoses Not on filedocumented in this encounter Additional Health Concerns AssessmentNoted TimePHQ-9 Depression Total Score: 2:00 PM EST documented as of this encounter Care Teams Team MemberRelationshipSpecialtyStart DateEnd Date Grayson Espitia MD [address] [place] [address] (Fax) PCP - GeneralFamily Medicine10/12/22 Grayson Espitia MD [address] [place] [address] PCP - Medical [place] MA/ Walker Monroy MD [address] [place] [address] Referring PhysicianNeurolog06/30/23 Farhad Harper MD [address] [place] [address] Referring PhysicianCardiology2 Shannen Velazquez, ROGE [address] [facility] [address] [place] [address] Registered NurseFamily Medicine11/09/23documented as of this encounter
--- OUTSIDE RECORDS SUMMARY | 2025-05-20 11:03 | XMS_ITS | Clinical Summary ---
Author Organization [facility] Address [address] [place] [address] Care Team Providers Care Livestock Commission Agent Name Role Phone Grayson Espitia MD Primary Care Provider [phone] Walker Monroy MD Unavailable Farhad Harper MD Unavailable [phone] Shannen Velazquez RN Unavailable [phone] Grayson Espitia MD Unavailable [phone] Allergies Active AllergyReactionsCriticalityNoted DateCommentsLatexAnaphylaxisHigh 05/10/2019 Other Reaction(s): [...] edema, without long-term current use of insulin ([facility])1 each by Other route Daily 100 each 306//585560/6Active Lancets (OneTouch Delica Plus Cztdcx35C) [facility] Indications:Diabetic nephropathy associated with type 2 diabetes mellitus ([facility]), Stage 3 chronic kidney disease due to type 2 diabetes mellitus ([facility])1 Lancet Daily 100 each /6Active dilTIAZem CD (Cardizem CD) 180 MG 24 hr capsule Indications:Primary hypertensionTake 1 capsule (180 mg) by mouth Daily 90 capsule 6Active furosemide (Lasix) 20 MG tablet Indications:Primary hypertension,Chronic diastolic congestive heart failure, NYHA class 1 ([facility])2 tablets every am (= 40 mg) and 1 tablet (=20 mg) daily before supper 90 tablet 5Active ferrous sulfate 325 (65 Fe) MG tablet Indications:Anemia due to stage 3b chronic kidney disease ([facility])Take 1 tablet (325 mg) by mouth every [...] tablet Discontinued(Reorder) Active Problems ProblemNoted DateDiagnosed DateChronic dptwfmob94/14/2025Secondary inqprosoeiejrygfqmg87/09/2024Stage 3b chronic kidney ihdxzma9307/12/2023nxiety associated with woyhewywon03/18/2023Stage 3 chronic kidney disease due to type 2 diabetes jjmsvalr84/14/2023ge-related nuclear cataract of both eyes10/25/2022 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 Basal ganglia /05/2023Ischemic arbwyt4110/25/2022oronary artery disease involving [place] coronary artery of [place] heart without angina pectoris 10/25/2022nemia due to stage 3b chronic kidney hdchkbp8610/25/2022or pulmonale, bnlyptn9310/25/2022iastolic congestive heart failure, NYHA class H/O: CVA (cerebrovascular accident)10/25/2022History of aortic valve replacement 10/25/2022Hx of CABG10/25/2022Ischemic nephropathy with hypertensive idgwctsbirhgjlm80/05/0909Dmgmncxzwmyo86/05/2023Left carotid artery stenosis 10/25/2022LVH (left ventricular hypertrophy)10/25/20222037Xrmjldxwgoigjz41/05/2023 Moderate episode of recurrent major depressive rhvhtlez41/05/2023Neurogenic orthostatic hqydgmqifiz53/05/2023Nocturnal bmrhjjzci61/05/2023aroxysmal atrial xsraygfakadi93/05/1526Lmgcehffrjumevql45/05/2023ersistent disorder of initiating or maintaining sleep10/25/2022rimary osteoarthritis of left knee 10/25/2022Sequela, post-pfavgj9010/25/2022Vascular dementia with behavior zmtphskwvur72/05/2023History of tlktdxp2010/20/20222279Atzivw51/31/2023Other specified disorders of bone density and structure, right thigh06/08/2021History of basal cell carcinoma (BCC)11/03/2020enal artery tzmezapf82/21/2021Chronic organic brain hqobtjza28/09/2021Controlled substance agreement mpqxpu3505/19/2020Acquired fljpuiqsezgfoq16/23/2020Chronic fatigue ryxzshoy34/22/2020Postherpetic neuralgia 10/29/2019Idiopathic sleep related nonobstructive alveolar hypoventilation 10/04/2019Persistent cognitive qcedwignqe75/14/9531Euajeyfudnyl94/14/2020 Gastroesophageal reflux eemelyv3308/27/2019Hemiplegia of nondominant side as late effect of cerebrovascular yecsyyf5508/20/2019Slow transit lkinnoiuezkd28/30/2020 Cervical stenosis of spinal canal08/02/2019Abdominal aortic atherosclerosis 07/02/2019Thoracic aorta ptgpibiqhovxzai86/10/2020Overweight (BMI 25.0-29.9) 04/11/2019Vitamin D nyumkhywlh86/20/0113Wyknyuwhimlbuq02/30/2019Vitreous degeneration of both eyes05/04/2018Nonexudative age-related macular degeneration, bilateral, early dry stage08/25/2017Nuclear senile cataract 08/25/20171495Oyhuzrfctnrp67/01/2018Surgical /19/2017Diabetic renal cpcchtb6803/07/2017Mild nonproliferative diabetic retinopathy associated with type 2 diabetes omdobdho53/30/2017Chronic allergic ymdyneyo38/16/2017Mitral valve afbcmkvp33/10/2016Systolic hfstue1208/27/2015Benign essential hypertension 03/05/20150528Mdpobkqbdbw38/14/2015Euthyroid sick kfsjjgvi15/12/2015Long QT syndrome 03/03/20153810Uufomflwhyzyzjix91/12/2015Ischemic vascular tcmczgw4911/23/1904 Resolved Problems ProblemNoted DateDiagnosed DateResolved ClnjIsojmsyup48Low serum epbwpkm37/bnormality of zihuugh90/cute kidney injury superimposed on chronic kidney oozeboa69Herpes zoster without qatbzplrqvdf77/05/202302/Generalized ybfslcro52/31/2023 02/25/20251854Rgaxtkxgo92Hyperglycemia due to type 2 diabetes /Multi-infarct dementia with ggaarqmf44/11/2021 4Retinal hemorrhage, /10/2024Stage 4 chronic kidney utvcsto07/Late effects of cerebrovascular disease /cute postoperative respiratory / Fall/3Acute cerebral rzoxtwxehm54/15/202001/5CAD, multiple oxouxe29/ Encounters DateTypeDepartmentCare XbnpXxsdfajjzrm43/22/2025Patient Outreach [facility] [address] [place] [address] Shannen Velazquez RN 05/13/2025Telephone [facility] [address] [facility] [address] [place] [address] Pauly Huber MA Care Bcygqmrmpdmr88/12/2025Patient Outreach [facility] [address] [place] [address] Shannen Velazquez RN 04/15/2025Telephone [facility] [address] [place] [address] [facility] [address] [place] [address] Grayson Espitia MD Care Mbsazlfxtqgb08/10/2025Telephone [facility] [address] [place] [address] Shannen Velazquez RN 03/26/2025Patient Outreach [facility] [address] [place] [address] Shannen Velazquez RN 03/25/2025linisync Result Encounter [facility] External Department Unsolicited Provider, Generic External Data 03/13/2025Patient Outreach [facility] [address] [place] [address] Shannen Velazquez, ROGE 03/12/2025Patient Outreach [facility] [address] [place] [address] Shannen Velazquez, ROGE 03/11/2025Telephone [address] [place] [address] Cecile Pauly MS Care Znqvlfnhltza31/15/2025Patient Outreach [facility] [address] [place] [address] Shannen Velazquez, ROGE 03/05/2025 2:30 PM EDTOffice Visit [address] [place] [address] Grayson Espitia MD Primary hypertension (Primary Dx); Mixed hyperlipidemia; Hypokalemia; Type 2 diabetes mellitus with stage 3b chronic kidney disease, without long-term current use of insulin (HCC); Anemia due to stage 3b chronic kidney disease ([facility]); Microalbuminuria; Paroxysmal atrial fibrillation (HCC); Chronic diastolic congestive heart failure, NYHA class 1 ([facility]); Acute cystitis without hematuria; Chronic pruritus; Qzkicfmwuopd11/14/2025Bamboo flowsheet [address] [place] [address] [place] [address] Grayson Espitia MD 03/05/20252068Ziside29/09/2025Telephone [address] [place] [address] Cecile August, MS Care Odswzmwleblz68/29/2025Patient Outreach [facility] [address] [place] [address] Shannen Velazquez, RN from Last 3 Months Immunizations ImmunizationAdministration DatesNext DueInfluenza, High Dose Seasonal, Preservative Free06/23/2021,03/25/2018Influenza, injectable, quadrivalent, preservative free03/01/2020,03/25/2018,03/01/2016Influenza, recombinant, quadrivalent, injectable, preservative free02/28/2020Moderna Bivalent Booster Qavxnihmghj74/28/2022Moderna SARS-CoV-2 Qepbwxyumji01/22/2022neumococcal Conjugate PCV 13012/20/20162427SBYC-PBB-2 (COVID-19) vaccine, mRNA, spike protein, LNP, bivalent, PF03/19/2022Zoster, Biyepogjtjw31/01/2024,06/24/2023 Family History Medical HistoryRelationNameCommentsCancerFatherAlcohol abuseMotherDiabetesMother StrokeMotherNo Known [...] week09/05/2023How often do you attend uatsdin or orthodox services?More than 4 times per year09/05/2023o you belong to any clubs or organizations such as uatsdin groups, unions, fraternal or athletic groups, or school groups?Yes09/05/2023How often do you attend meetings of the clubs or organizations you belong to?More than 4 times per year09/05/2023 Are you , , , , never , or living with a partner?Oxojxkw1009/05/2023UDIT-CAnswerDate RecordedQ1: How often do you have a [...] Health Questionnaire-2 Score1 03/05/2025[facility] [place] [facility] - Occupational Stress QuestionnaireAnswerDate RecordedDo you feel stress - tense, restless, nervous, or anxious, or unable to sleep at night because yourmind is troubled all the time - these days?To some gdnusa4709/05/2023Exercise Vital SignAnswerDate Recorded On average, how many [...] highest degree you have received?Some college, no fcrsgu7311/30/2022 CommentsNoSex and Gender InformationValueDate RecordedSex Assigned at BirthNot on fileLegal ExsIrvkaw90/15/2023 6:51 PM EDTGender IdentityNot on fileSexual OrientationNot on fileOccupationIndustryJob Start DateJob End DateRetiredNot on fileNot on fileNot on file Last Filed Vital Signs Vital SignReadingTime TakenCommentsBlood Wjrxiqky622/7603/05/2025 2:33 PM EDT Xqokn672003/05/2025 2:33 PM EDTTemperature--Respiratory Rate--Oxygen Amhlqnggce47% 03/05/2025 2:33 PM EDTInhaled Oxygen Concentration--Wvjskr96.4 kg (142 lb) 03/05/2025 2:33 PM KKYUmrzoy784.8 cm (5' 2.5 )03/05/2025 2:33 PM EDTBody Mass Index25.561 2:33 PM EDT Plan of Treatment DateTypeDepartmentCare Team (Latest Contact Info)Diinudfdjge03/30/2025 3:30 PM ESTOffice Visit [address] [place] [address] Grayson Espitia MD [address] [facility] 100 [place] [address] (Fax) 06/05/2025 2:00 PM ESTOffice Visit [address] [facility] 100 [place] [address] Grayson Espitia MD [address] [facility] 100 [place] [address] (Fax) 07/08/2025 2:30 PM ESTOffice Visit [address] [facility] 100 [place] [address] Grayson Espitia MD [address] [facility] 100 [place] [address] (Fax) 09/04/2025 2:00 PM EDTOffice Visit [address] [facility] 100 [place] [address] Grayson Espitia MD [address] [facility] 100 [place] [address] (Fax) 11/05/2025 1:05 PM EDTOffice Visit [facility] [place] [facility] [address] [place] [address] Lula Gasca MD [address] [place] [address] Health MaintenanceDue DateLast DoneCommentsDiabetes: Urine Protein Screening 5106/10/2023, 07/25/2022, 12/10/2021, Additional history existsDiabetes: Retinopathy Govecasxo23, 07/07/2023, 06/23/2023, Additional history existsPneumococcal Vaccine: 65+ AwqycPfnsyoqjvvvb29/31/2017Colonoscopy Nvzrtwiakgdu08/18/2021olorectal Cancer ScreeningDiscontinuedMammogram Jaroiidvbzsm54/04/2022, 05/26/2021Influenza RcpzkaqUardyyiyqmxw31/01/2022, 03/01/2020, 02/28/2020, Additional history existsDiabetes: Hemoglobin A1C Xegfkrlpktje62/06/2025, 05/24/2024, 03/03/2023, Additional history existsCT ColonographyDiscontinuedFIT-DNADiscontinuedFITDiscontinuedFOBTDiscontinued SigmoidoscopyDiscontinued Procedures Procedure NamePriorityDate/TimeAssociated DiagnosisCommentsHMHP PTH, SMCFBTBJWAGYKWLtrnwmf56/03/2025 11:23 AM EST TBH VITAMIN D 25 BDVbpuvon14/03/2025 11:23 AM EST C[facility] LNNLZFFWNteuhap29/03/2025 11:23 AM EST [facility] STOZNuttrmc98/03/2025 11:23 AM EST HMHP CBC WITH PLATELET NO LYQAGCLYDVTIAficynt30/03/2025 11:23 AM EST ALL GMJDFYFXTWzyggqu62/03/2025 11:23 AM EST ALL URIC NEZHLddxhzr21/03/2025 11:23 AM EST ALL RENAL FUNCTION SCFXXAljuswf51/03/2025 11:23 AM EST HMHP URINALYSIS, WITH YDMNTWVCUEUSvztyzb88/03/2025 11:11 AM EST TBH URINE T PROTEIN CREAT KQXYBJdckrtx06/03/2025 11:11 AM EST HEMOGLOBIN C2GUjpvqbs56/06/2025 10:58 AM EDT Type 2 diabetes mellitus with hyperglycemia, without long-term current use of insulin (HCC) LIPID OEMYYMtvzynd62/06/2025 10:58 AM EDT Mixed hyperlipidemia COMPREHENSIVE METABOLIC FUOVZTlvecio95/06/2025 10:58 AM EDT Primary hypertension Hypokalemia Type 2 diabetes mellitus with stage 4 chronic kidney disease, without long-term current use of insulin (HCC) DIABETIC RETINOPATHY SCREENING - OU - BOTH HUMTYombqhp54/14/2025 8:35 AM EST MICROALBUMIN, URINE AVBYEXolzjqg56/21/2022 12:00 PM EDT BI MAMMOGRAM SCREENING QHDZXRPNIEoggxke08/04/2022 12:00 PM EST Type 2 diabetes mellitus with diabetic chronic kidney disease (HCC) Mixed hyperlipidemia Hypomagnesemia Hypokalemia Long QT syndrome Slow transit constipation Encounter for screening for other disorder Essential (primary) hypertension Encounter for general adult medical examination without abnormal findings Stage 3 chronic kidney disease ([facility]) Vitamin D deficiency, unspecified Proteinuria, unspecified Encounter for screening for osteoporosis Insomnia, unspecified Allergic rhinitis, unspecified Gastro-esophageal reflux disease without esophagitis Other penitentiary (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 Other postherpetic nervous system involvement Cardiomegaly Unspecified abnormal findings in urine Personal history of other malignant neoplasm of skin Sick-euthyroid syndrome Chronic fatigue, unspecified Hypothyroidism, unspecified 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 Idiopathic sleep related [...] screening mammogram for malignant neoplasm of breast FYIYVUOSADBZprmgqg12/18/2021 12:00 PM EDT from Last 3 Months [...] Data Provider CLINISYNCFinal ResultPerforming OrganizationAddressCity/State/ZIP CodePhone Number [facility] * [facility] (03/25/2025 11:23 AM EST)ComponentValueRef RangeTest MethodAnalysis TimePerformed AtPathologist SignatureTBH IRON54.050.0 - 170.0 ug/dLTBHTBH TOTAL IRON BINDING RUNNACXT125.0250.0 - 450.0 ug/dLTBHTBH PERCENT IRON MBDWXJAHEK35.2%TBHSpecimen (Source)Anatomical Location / Laterality Collection Method / VolumeCollection TimeReceived Time03/25/2025 11:23 AM EST 03/25/2025 11:39 AM EST Narrative CLINISYNC - 03/25/2025 12:29 PM EST Authorizing ProviderResult TypeResult StatusGeneric External Data Provider CLINISYNCFinal ResultPerforming OrganizationAddressCity/State/ZIP CodePhone Number [facility] * (ABNORMAL) [facility] PTH, INTRAOPERATIVE (03/25/2025 11:23 AM EST)ComponentValueRef RangeTest MethodAnalysis TimePerformed AtPathologist SignaturePTH, WIFITP89(A) 15 - 65 pg/mLTBHComment: Performed at: ?? - [facility] [address] ??[id number] Neuropsychologist: Jerrell Bautista PhD, Phone: ??[phone] Specimen (Source)Anatomical Location / LateralityCollection Method / Volume Collection TimeReceived Time03/25/2025 11:23 AM EST03/25/2025 11:39 AM EST Narrative CLINISYNC - 03/26/2025 11:08 AM EST Authorizing ProviderResult TypeResult StatusGeneric External Data Provider CLINISYNCFinal ResultPerforming OrganizationAddressty/State/ZIP CodePhone Number [facility] * (ABNORMAL) [facility] CBC WITH PLATELET NO DIFFERENTIAL (03/25/2025 11:23 AM EST) ComponentValueRef RangeTest MethodAnalysis TimePerformed AtPathologist SignatureTBH WBC8.44.0 - 11.0 10 3/uLTBHTBH RBC4.00(L)4.20 - 5.40 10 6/uLTBH TBH HGB11.5(L)12.0 - 16.0 g/dLTBHTBH HCT35.4(L)36.0 - 48.0 %TBHTBH MCV88.581.0 - 99.0 fLTBHTBH MCH28.826.7 - 34.0 pgTBHTBH MCHC32.529.9 - 35.2 g/dLTBHTBH RDW 12.211.0 - 15.0 %TBHTBH SFH947594 - 450 10 3/uLTBHTBH MPV8.9(L)9.5 - 13.5 fL TBHSpecimen (Source)Anatomical Location / LateralityCollection Method / Volume Collection TimeReceived Time03/25/2025 11:23 AM EST03/25/2025 11:39 AM EST Narrative CLINISYNC - 03/25/2025 12:26 PM EST Authorizing ProviderResult TypeResult StatusGeneric External Data Provider CLINISYNCFinal ResultPerforming OrganizationAddressCity/State/ZIP CodePhone Number [facility] * [facility] FERRITIN (03/25/2025 11:23 AM EST)ComponentValueRef RangeTest Method Analysis TimePerformed AtPathologist AackfznbpCOPQNOOG40.08.0 - 252.0 ng/mLTBH Specimen (Source)Anatomical Location / LateralityCollection Method / Volume Collection TimeReceived Time03/25/2025 11:23 AM EST03/25/2025 11:39 AM EST Narrative CLINISYNC - 03/25/2025 12:43 PM EST Authorizing ProviderResult TypeResult StatusGeneric External Data Provider CLINISYNCFinal ResultPerforming OrganizationAddressCity/State/ZIP CodePhone Number [facility] * (ABNORMAL) ALL URIC ACID (03/25/2025 11:23 AM EST)ComponentValueRef RangeTest MethodAnalysis TimePerformed AtPathologist SignatureURIC ACID6.5(H)2.6 - 6.0 mg/dLTBHSpecimen (Source)Anatomical Location / LateralityCollection Method / VolumeCollection TimeReceived Time03/25/2025 11:23 AM EST03/25/2025 11:39 AM EST Narrative CLINISYNC - 03/25/2025 12:07 PM EST Authorizing ProviderResult TypeResult StatusGeneric External Data Provider CLINISYNCFinal ResultPerforming OrganizationAddressCity/State/ZIP CodePhone Number [facility] * (ABNORMAL) ALL RENAL FUNCTION PANEL (03/25/2025 11:23 AM EST)ComponentValueRef RangeTest MethodAnalysis TimePerformed AtPathologist BmpbrsbltAXSZEN760833 - 145 mmol/LTBHPOTASSIUM4.03.5 - 5.1 mmol/AHPUVWLBWKCX85076 - 107 mmol/LTBH [place] PXXPSSG66.621.0 - 32.0 mmol/LTBHANION GAP9.5TXNWEYIYML866(H)74 - 106 mg/dLTBHBLOOD UREA EMHJQDUW73.0(H)7.0 - 18.0 mg/dLTBHCREATININE1.56(H)0.55 - 1.02 mg/dLTBHTBH EGFR-AF AYVVWCYJ66(L)>=60 mL/min/1.73m 2TBHTBH EGFR-NON AF XFTXDJFX41(L)>=60 mL/min/1.73m 2TBHBUN CREATININE RATIO19.5DVUBORLPBX8.18.5 - 10.1 mg/dLTBHPHOSPHORUS4.02.6 - 4.7 mg/dLTBHALBUMIN LEVEL3.53.4 - 5.0 g/dLTBH Specimen (Source)Anatomical Location / LateralityCollection Method / Volume Collection TimeReceived Time03/25/2025 11:23 AM EST03/25/2025 11:39 AM EST Narrative CLINISYNC - 03/25/2025 12:07 PM EST Authorizing ProviderResult TypeResult StatusGeneric External Data Provider CLINISYNCFinal ResultPerforming OrganizationAddressCity/State/ZIP CodePhone Number [facility] * ALL MAGNESIUM (03/25/2025 11:23 AM EST)ComponentValueRef [...] RangeTest MethodAnalysis TimePerformed AtPathologist SignatureTOTAL PROTEIN URINE JUAOJQ53.0(H)<=11.9 mg/dLTBHCREATININE URINE SQONHM03.3020.00 - 300.00 mg/dLTBHPROTEIN CREATININE RATIO URINE0.54TBHSpecimen (Source) Anatomical Location / LateralityCollection Method / VolumeCollection Time Received Time03/25/2025 11:11 AM EST03/25/2025 11:41 AM EST Narrative CLINISYNC - 03/25/2025 11:56 AM EST Authorizing ProviderResult TypeResult StatusGeneric External Data Provider CLINISYNCFinal ResultPerforming OrganizationAddressCity/State/ZIP CodePhone Number [facility] * (ABNORMAL) HMHP URINALYSIS, WITH MICROSCOPIC (03/25/2025 [...] Volume Collection TimeReceived TimeBloodVenous blood specimen / Yodxzdl6502/25/2025 10:58 AM EDT1 10:58 AM EDT Narrative [facility] - 02/26/2025 6:02 AM EDT FASTING:YES FASTING: YES Resulting Agency Comment Performing Organization Information ?Site ID: QPT ?Name: [facility] ?Address: [address] [place] [address], [address] [place] [phone] ?Director: Stephan Kline MD Authorizing ProviderResult TypeResult StatusEdshivam Espitia MDLAB BLOOD ORDERABLESFinal ResultPerforming OrganizationAddressCity/State/ZIP CodePhone Number [facility] * (ABNORMAL) Lipid panel (02/25/2025 10:58 AM EDT)ComponentValueRef RangeTest MethodAnalysis TimePerformed AtPathologist SignatureCHOLESTEROL, TGAVP449(H) <200 mg/dLQUESTHDL CWOYSDYANZR73> OR = 50 mg/nIMIOLDDTLLUVAFPHCNB009<150 mg/dL QUESTLDL CSDNBZXLFLI063(H)mg/dL (calc)QUESTComment: Reference range: <100 Desirable range <100 mg/dL for primary prevention; <70 mg/dL for patients with CHD or diabetic patients with > or = 2 CHD risk factors. LDL-C is now calculated using the Luis Eduardo-Young calculation, which is a validated novel method providing better accuracy than the Friedewald equation in the estimation of LDL-C. Luis Eduardo SS et al. ANGELA. 2013;310(19): 6010-5071 (http://education.Sai Medisoft.CarJump/faq/ZSR848) CHOL/HDLC RATIO3.3<5.0 (calc)QUESTNON HDL BXDWHNDJUXS055(H)<130 mg/dL (calc) QUESTComment: For patients with diabetes plus 1 major ASCVD risk factor, treating to a non-HDL-C goal of <100 mg/dL (LDL-C of <70 mg/dL) is considered a therapeutic option. Specimen (Source)Anatomical Location / LateralityCollection Method / Volume Collection TimeReceived TimeBloodVenous blood specimen / Cebvsdi4702/25/2025 10:58 AM EDT1 10:58 AM EDT Narrative [facility] - 02/26/2025 6:02 AM EDT FASTING:YES FASTING: YES Resulting Agency Comment Performing Organization Information ?Site ID: QPT ?Name: [facility] ?Address: [address] [place] [phone] ?Director: Stephan Kline MD Authorizing ProviderResult TypeResult [...] test. BUN38(H)7 - 25 mg/dLQUESTCreatinine1.61(H)0.60 - 1.00 mg/uOKDTSDLCRO91(L)> OR = 60 mL/min/1.28v6KMTLHRBO/CREATININE RATIO24(H)6 - 22 (calc)XGFISXopqgv337734 - 146 mmol/LQUESTPotassium, Bld4.23.5 - 5.3 mmol/VSOAOROnetmude07051 - 110 mmol/L QUESTCarbon Hpiiztg4844 - 32 mmol/LQUESTCalcium9.68.6 - 10.4 mg/dLQUESTPROTEIN, TOTAL7.26.1 - 8.1 g/dLQUESTALBUMIN4.13.6 - 5.1 g/dLQUESTGLOBULIN3.11.9 - 3.7 g/dL (calc)QUESTALBUMIN/GLOBULIN RATIO1.31.0 - 2.5 (calc)QUESTBILIRUBIN, TOTAL 0.50.2 - 1.2 mg/dLQUESTALKALINE PQJPDGHAZGZ94718 - 153 U/FGTFOCEKM8290 - 35 U/L VQMADYDC82 - 29 U/LQUESTSpecimen (Source)Anatomical Location / Laterality Collection Method / VolumeCollection TimeReceived TimeBloodVenous blood specimen / Vjfktda0302/25/2025 10:58 AM EDT1 10:58 AM EDT Narrative [facility] - 02/26/2025 6:02 AM EDT FASTING:YES FASTING: YES Resulting Agency Comment Performing Organization Information ?Site ID: QPT ?Name: [facility] ?Address: [address] [place] [address], [address] [place] [phone] ?Director: Stephan Kline MD Authorizing ProviderResult TypeResult StatusEdshivam Espitia [facility]DMER[facility] BLOOD ORDERABLESFinal ResultPerforming OrganizationAddressCity/State/ZIP CodePhone Number [facility] [...] Hemeyer MDECW LABSFinal ResultPerforming OrganizationAddressCity/State/ZIP CodePhone Number [facility] * Bilateral screening mammogram (05/26/2021 12:00 PM EST)Anatomical Region LateralityModalityBreastBilateralMammographySpecimen (Source)Anatomical Location / LateralityCollection Method / VolumeCollection TimeReceived Time Narrative 05/26/2021 12:00 PM EST PERFORMED AT [facility] LOCATION:[id number] Procedure Note CONVERSION, GENERIC - 11/26/[address] [facility] LOCATION:[id number] Authorizing ProviderResult TypeResult StatusGrayson Espitia MDIMG BI PROCEDURES Final Result * Colonoscopy (01/07/2021 12:00 PM EDT)Anatomical RegionLateralityModality EndoscopySpecimen (Source)Anatomical Location / LateralityCollection Method / VolumeCollection TimeReceived Time01/07/2021 12:00 PM EDT Narrative 01/07/2021 12:00 PM EDT PERFORMED AT [facility] LOCATION:[id number] Procedure Note CONVERSION, GENERIC - 10/06/[address] [facility] LOCATION:[id number] Authorizing ProviderResult TypeResult StatusGrayson Espitia MDENDOSCOPY PROCEDURE ORDERABLESFinal Result from Last 3 Months or Most Recently Relevant to Health Maintenance Insurance Advance Directives TypeDate RecordedPatient RepresentativeExplanationPower of Attorney12/15/2022 9:23 AMLiving WillAdvance Directives and Living Will12/15/2022 9:22 AM Care Teams Team MemberRelationshipSpecialtyStart DateEnd Grayson Espitia MD [address] [place] [address] PCP - GeneralFamily Medicine10/12/22 Grayson Espitia MD [address] [place] [address] PCP - Medical [place] Walker Monroy MD [address] [place] [address] Referring PhysicianNeurolog06/30/23 Farhad Harper MD [address] [place] [id number] Referring PhysicianCardiology06/30/23 Shannen Velazquez, ROGE [address] [address] Registered NurseFamily Medicine11/09/23
--- OUTSIDE RECORDS SUMMARY | 2025-05-20 11:23 | XMS_ITS | CCD ---
Author Organization [facility] Care Team Providers Care Carpenter'S Assistant Name Role Phone Grayson Hernandez Primary Care Provider TASIA IRIZARRY Admitting Unavailab le VIGESAA, TASIA HERNANDES Attending Unavailab le VIGESAA, TASIA HERNANDES Admitting Unavailab le VIGESAA, TASIA HERNANDES Attending Unavailab le GRAYSON HERNANDEZ Primary Care Unavailable VIGDEXTER, TASIA HERNANDES Admitting Unavailab le MARIONESMIKE, TASIA HERNANDES Attending Unavailab le GRAYSON HERNANDEZ Primary Care Unavailable Grayson Hernandez Primary Care Provider [phone] Grayson Hernandez Primary Care Provider [phone] CARO TERESA Referring Unavailable GRAYSON HERNANDEZ [...] Consulting Unavailable Grayson Hernandez Primary Care Provider [phone] Grayson Hernandez Primary Care Provider [phone] PROVIDER, UNKNOWN Attending Unavailable PROVIDER, UNKNOWN Admitting Unavailable Grayson Hernandez MD Primary Care Provider Grayson Hernandez MD Primary Care Provider [phone] Martha Rendon Unavailable JONE, DR ABHI Saldana [...] Unavailable Grayson Hernandez MD Primary Care Provider [phone] Grayson Hernandez MD Unavailable [phone] Eliana MORALES, Harmony Unavailable Tasia Irizarry MD Unavailable Ewa ARAGON-Kirstie Thibodeaux Unavailable Grayson Hernandez MD Primary Care Provider [phone] ANSHUL IRIZARRY Attending Unavailable VIGESAA, ANSHUL S Referring Unavailable GRAYSON HERNANDEZ Primary Care Unavailable MATTY LEI Admitting Unavailable MATTY LEI Attending Unavailable GRAYSON HERNANDEZ Primary Care Unavailable Marcus GUAN, Shannen Unavailable Grayson Hernandez MD Primary Care Provider Morgan Womack MD Attending Provider [phone] Grayson Hernandez MD Primary Care Provider Morgan Womack MD Attending Provider Grayson Hernandez MD Unavailable Grayson Hernandez MD Primary Care Provider [phone] Grayson Hernandez MD Primary Care Provider Dm Agarwal Jr T Attending Unavailable Dm Agarwal Jr T Referring Unavailable Stefano Chang MD, Dm Unavailable Unavailable Marcus GUAN, Shannen Unavailable [phone] Grayson Hernandez MD Primary Care Provider SHANNAN CRENSHAW Referring Unavailable GRAYSON HERNANDEZ Primary [...] Unavailable Grayson Hernandez MD Primary Care Provider [phone] Maryjo Morrison APRN Attending Provider Grayson Hernandez MD Unavailable Shanta, Morgan Admitting Unavailable Shanta, Morgan Attending Unavailable Grayson Hernandez Primary Care Unavailable Shanta, Morgan Admitting Unavailable Shanta, Morgan Attending Unavailable Grayson Hernandez Primary Care Unavailable Maryjo Morrison Attending Unavail able Maryjo Morrison Admitting Unavail able Allergies Allergy ClassificationReported Allergen(s)Allergy TypeDate of OnsetReaction(s) Facility (20 sources)Latex; Translations: [LATEX]Propensity to adverse reactions to drug 88-40-2813Yar[facility]vcecbnqWrn[facility] Work Phone: (1 source)LatexDrug allergy (disorder)00-79-0990[facility] ([facility] sources)LatexPropensity to adverse fkrrggsew63-88-5789EricgegixjtCJZK [facility] (1 source)LatexDrug allergy (disorder)64-05-3681[facility]bmcv[facility] Medications Current Medications MedicationDrug Class(es)DatesSig (Normalized)Sig (Original)acetaminophen 500 mg oral tablet (15 sources)Start: 84-08-7306supz 1 tablet by mouth every six hours as needed for painStart: 36-93-3693yuxy 650 mg rectal route every four hours [...] mg from all sources in 24 hoursStart: 41-18-8488cqhf 650 mg by mouth every four hours as needed for pain, then take 4000 mg by mouth every twenty-four hours as needed for zisj432 mg, Oral, EVERY 4 HOURS PRN, Pain Mild (1-3), Fever, Fever >100.5 F (38 C), Starting Tue07/03/19 at 1726 Maximum dose of acetaminophen is 4000 mg from all sources in 24 hours.acetaminophen 325 mg / oxyCODONE hydrochloride 5 mg oral tablet (5 sources)Opioid AgonistStart: 07-24-2019 End: 57-80-3733ihsf 1 tablet by mouth twice daily as neededoxyCODONE- Acetaminophen 5-325 MG 1 tablet as needed Orally up to twice daily as needed for 30 days Activetake 1 tablet by mouth every four hours as needed for pain oxyCODONE-acetaminophen (PERCOCET) 5-325 MG per tablet Take 1 tablet by mouth every 4 hours as needed for Pain. 0 Vygdqv076 ml albumin human, detention 50 mg/ml injection (1 source)Human Serum AlbuminStart: 89-25-046811 g, Intravenous, PRN, Other, PAD below goal and Low CI and/or Low BP and /or Low urine output perhemodynamic goals , Starting Tue07/03/19 at 1726 Up to a max of 1000 mL. Notify surgeon for furtherorders if max volume infused.[id number] 200 actuat albuterol 0.09 mg/actuat metered dose inhaler (1 source)beta2-Adrenergic AgonistStart: 16-41-3214euxz 2 puff(s) by inhalation every four hours as neededAlbuterol Sulfate HFA 108 (90 Base) MCG/ACT 2 puffs as needed Inhalation every 4 hrs Jun, Activeamiodarone hydrochloride 200 mg oral tablet (6 sources)AntiarrhythmicStart: 79-53-2084Amvsy: 07-11-2019 End: 06-96-3648vzlm 200 mg by mouth twice msiwu148 mg, Oral, 2 TIMES DAILY, First dose (after last modification) on Tue07/11/19 at 2100Start: 07-07-2019 End: 13-22-7233nkty 400 mg by mouth twice sovmb111 mg, Oral, 2 TIMES DAILY, First dose on Tue07/07/19 at 0900Start: 69-46-3068kkqh 200 mg by mouth once aqbxs022 mg, Oral, DAILY, First dose (after last modification) on Tue07/22/19 at 0900Start: 07-03-2019 End: 92-56-0178xhji 200 mg by mouth three times jgxoh130 mg, Oral, 3 TIMES DAILY, First dose on Tue07/03/19 at 0900apixaban 5 mg oral tablet (20 sources)Factor Xa InhibitorStart: 55-20-0532usil 1 tablet by mouth in the morningapixaban (Eliquis) 5 MG tablet Take 1 tablet by mouth in the morning and 1 tablet before bedtime. 10/11/2022 Activetake 1 tablet by mouth once daily Eliquis 5 mg tablet take 1 tablet by oral route every day 5 MG - Active ARIPiprazole 2 mg oral tablet (20 sources)Atypical AntipsychoticStart: 08-01-2024 End: 02-27-3642gdee 0.5 tablet by mouth in the eveningARIPiprazole (Abilify) 2 MG tablet Indications: Persistent disorder of initiating or maintaining sleep , Vascular dementia with behavior disturbance (HCC) Take 0.5 tablets (1 mg) by mouth in the evening 45 tablet 1 09/03/2024 03/02/2025 ActiveStart: 11-30-2023 End: 81-74-3321fzml 1 tablet by mouth once dailyAripiprazole 2 mg tablet Discontinued 2 MG PO Daily March 08, 2024 12:00am October 16, 2024 2:21pm aspirin 81 mg delayed release oral tablet (20 sources)Platelet Aggregation Inhibitor, Nonsteroidal Anti-inflammatory Drug Start: 70-80-9620xhis 1 tablet by mouth in the morningaspirin 81 MG EC tablet Take 81 mg by mouth in the morning. 11/24/2022 ActiveStart: 71-03-8219oler 1 tablet by mouth once dailyStart: 07-03-2019 End: 07-95-9005dzme 81 mg by mouth once daily81 mg, Oral, DAILY, First dose on Tue07/03/19 at 1745 Do not crush or break. End: 38-19-2937uzpq 1 tablet by mouth once dailyaspirin 325 [...] tablet (20 sources)HMG-CoA Reductase InhibitorStart: 07-04-2019 End: 96-09-0064gmau 1 tablet by mouth once dailybisacodyl 10 mg rectal suppository (2 sources)Stimulant LaxativeStart: 07-03-2019 End: 66-80-6055Lgzjf Glucose Monitoring Suppl (ONE TOUCH ULTRA 2) w/Device kit (20 sources)Start: 96-16-2795Lcggw Glucose Monitoring Suppl (ONE TOUCH ULTRA 2) w/Device kit 08/30/2022 ActiveStart: 59-91-3991Znzup Glucose Monitoring Suppl (ONE TOUCH ULTRA 2) w/Device kit USE ONCE DAILY TO CHECK BLOOD SUGAR. 08/30/2022 ActiveStart: 87-90-1815Nusqi Glucose Monitoring Suppl (ONE TOUCH ULTRA 2) w/Device kit USE ONCE DAILY TO CHECK BLOOD SUGAR. 0 08/30/2022 Activebumetanide 2 mg oral tablet (8 sources)Loop DiureticStart: 83-69-2839Ennym: 80-38-6433ynel 2 mg by mouth twice daily2 mg, [...] citrate 1040 mg oral tablet (20 sources)Start: 51-36-2472vlwj 1 tablet by mouth once dailycarvedilol 6.25 mg oral tablet (20 sources)alpha-Adrenergic Peyton, beta-Adrenergic BlockerStart: 04-02-2024 take 1 tablet by mouth twice dailycarvedilol (COREG) 12.5 MG tablet Take 1 tablet by mouth twice daily 180 tablet 04/02/2024 ActiveStart: 18-20-5903mgeo 0.5 tablet by mouth in the morning, then take 0.5 tablet by mouth at mealtime carvediloL (COREG) 12.5 mg tablet Take 0.5 tablets (6.25 mg total) by mouth in the morning and 0.5 tablets (6.25 mg total) in the evening. Take with meals. 30 tablet 0 11/23/2022 ActiveStart: 08-30-2021 End: 36-82-0660yuaj 1 tablet by mouth twice dailyStart: 11-19-2020 End: 53-53-4897dioh 2 tablets by mouth twice dailyCarvedilol 6.25 mg tablet Discontinued 12.5 MG PO Twice daily November 19, 2020 12:00am February 1:34pmStart: 06-70-5806kddv 1 tablet by mouth twice daily at mealtimecarvedilol (COREG) 12.5 MG tablet Take 1 tablet by mouth 2 times daily (with meals) 60 tablet 3 07/24/2019 ActiveCarvedilol Activecefuroxime 250 mg oral tablet (6 sources)Cephalosporin AntibacterialStart: 03-05-2025 End: 65-30-1275czoe 1 tablet by mouth in the morningcefuroxime (Ceftin) 250 MG tablet Indications: Acute cystitis without hematuria Take 1 tablet (250 mg) by mouth in the morning and 1 tablet (250 mg) before bedtime. Do all this for 5 days. 10 tablet 03/05/2025 03/10/2025 ActiveStart: 04-30-2024 End: 49-36-9238rlrn 1 tablet by mouth in the morningcefuroxime (Ceftin) 250 MG tablet Indications: Acute cystitis without hematuria Take 1 tablet (250 mg) by mouth in the morning and 1 tablet (250 mg) before bedtime. Do all this for 7 days. 14 tablet 04/30/2024 05/07/2024 Activechlorhexidine gluconate 1.2 mg/ml mouthwash (2 sources)Start: 16-01-0205fnik 15 mL by mouth twice daily15 mL, Mouth/Throat, 2 TIMES DAILY, First dose on Tue07/03/19 at 2100Start: 07-03-2019 End: 11-85-3244ywkt 15 mL by mouth once15 mL, Mouth/Throat, ONCE, Tue07/03/19 at 1015, For 1 dose Morning of surgery Pre-op (day of surgery)cholecalciferol 0.05 mg oral capsule (20 sources)Vitamin DStart: 04-43-6021zqnc 1 capsule by mouth once dailyStart: 03-08-2024 End: 72-97-4467hfhz 1 tablet by mouth once dailyCholecalciferol (Vitamin D3) (Vitamin D3) 125 mcg (5,000 unit) tablet Discontinued 125 MCG PO DailyMarch 08, 2024 1:27pm October 16, 2024 2:17pmStart: 11-19-2020 End: 90-18-1552aqiu 1 tablet by mouth once dailyCholecalciferol (Vitamin [...] Take 10,000 Units by mouth daily 0 Qdadwm802 hr cloNIDine 0.23525 mg/hr transdermal system (3 sources)Central alpha-2 Adrenergic AgonistStart: 53-60-4516Twfhm: 07-20-2019 apply 1 dose transdermal route every week1 patch, Transdermal, Administer over 7 Days, WEEKLY, First dose on Tue07/20/19 at 1000 Apply to a clean, hairless area of the upper outer arm or chest. Rotate patch sites weekly.Start: 07-15-2019 End: 94-90-0775gpnjz 1 dose transdermal route every week1 patch, Transdermal, Administer over 7 Days, WEEKLY, First dose on Tue07/15/19 at 1700 Apply to a c lean, hairless area of the upper outer arm or chest. Rotate patch sclopidogrel 75 mg oral tablet (16 sources)P2Y12 Platelet InhibitorStart: 27-87-1166rmfi 1 tablet by mouth once dailyclopidogrel (PLAVIX) 75 MG tablet TAKE 1 TABLET BY MOUTH ONCE DAILY 0 08/13/2021 ActiveStart: 12-21-9995mvbv 75 mg by mouth once daily75 mg, Oral, DAILY, First dose on Tue07/04/19 at 0900cyclobenzaprine hydrochloride 10 mg oral tablet (2 sources)Muscle RelaxantStart: 01-39-3726ixnr 1 tablet by mouth twice daily as neededCyclobenzaprine HCl 10 MG 1 tablet as needed Orally up to twice daily as needed for 15 days Activedexamethasone 1 mg/ml / neomycin 3.5 mg/ml / polymyxin b 10596 unt/ml ophthalmic suspension (16 sources)Aminoglycoside Antibacterial, Polymyxin-class Antibacterial, CorticosteroidStart: 12-81-4639wccx 1 drop(s) into the eye(s) three times daily rqxxdhmp-qygnnhzej-iauAXWPYunwub (Maxitrol) 0.1 % ophthalmic suspension Indications: Conjunctivitis1 drop to affected eye 3 times daily for 7 days. 5 mL 09/05/2024 Vjsjdf53 hr dilTIAZem hydrochloride 180 mg extended release oral capsule (20 sources)Calcium Channel BlockerStart: 08-08-2023 End: 26-60-7367ljge 1 capsule by mouth once dailydilTIAZem CD (Cardizem CD) 180 MG 24 hr capsule Indications: Primary hypertension Take 1 capsule (180 mg) by mouth Daily 90 capsule 1 03/05/2025 09/01/2025 ActiveStart: 05-19-2023 End: 81-41-3616gqvs 1 capsule by mouth every twenty-four hours in the morning dilTIAZem CD (Cardizem CD) 180 MG 24 hr capsule Indications: Primary hypertension (CMS/HCC) Take 1 capsule (180 mg) by mouth in the morning. 90 capsule 0 05/19/2023 08/17/2023 ActiveStart: 29-85-1179cohe 1 capsule by mouth once dailydilTIAZem (CARDIZEM CD) 120 MG extended release capsule Take 1 capsule by mouth daily 90 capsule 3 11/01/2022 Activetake 1 capsule by mouth every twenty-four hours in the morningdilTIAZem CD (CARDIZEM CD) 120 mg 24 hr capsule Take 1 capsule (120 mg total) by mouth in the morning. 0 Activedocusate sodium 100 mg oral capsule (4 sources)Start: 24-28-2154aiei 1 capsule by mouth twice daily as needed for constipationdocusate sodium (COLACE, DULCOLAX) 100 MG CAPS Take 100 mg by mouth 2 times daily as needed for Constipation 15 capsule 0 07/24/2019 Activedonepezil hydrochloride 10 mg oral tablet (20 sources)Start: 03-12-2025 End: 47-42-0905xypf 2 tablets by mouth at bedtimedonepezil (Aricept) 10 MG tablet Indications: Chronic organic brain syndrome Take 2 tablets (20 mg)by mouth at bedtime 180 tablet 1 03/12/2025 09/08/2025 ActiveStart: 03-24-2023 End: 84-12-1450fgeq 2 tablets by mouth once daily at bedtimeDonepezil 10 mg tablet Discontinued 20 MG PO Daily at bedtime March 08, 2024 12:00am March 11, 2025 12:16pmtake 1 tablet by mouth once dailydonepezil (ARICEPT) 10 MG tablet Take 1 tablet by mouth nightly Activedoxycycline monohydrate 100 mg oral capsule (1 source)Tetracycline-class DrugStart: 95-85-8906zkot 1 capsule by mouth every twelve hoursDoxycycline Monohydrate 100 MG 1 capsule Orally every 12 hrs for 10 days Jun, Active0.5 ml dulaglutide 1.5 mg/ml auto-injector (20 sources)GLP-1 Receptor AgonistStart: 03-08-2024 End: 51-38-8078Kmynysjdplz (TRULICITY SC) Inject 2.5 mg into the skin once a week ActiveDulaglutide (TRULICITY SC) Inject 2.5 mg into the skin once a week 0 ActiveDULoxetine 20 mg delayed release oral capsule (20 sources)Serotonin and Norepinephrine Reuptake InhibitorStart: 93-19-6518dqwn 1 capsule by mouth once dailyStart: 07-16-2024 End: 84-35-8598hkhw 2 capsules by mouth once dailyDULoxetine (Cymbalta) [address] capsule Indications: Anxiety associated with depression Take 2 capsules (40 mg) by mouth Daily Do not crush or chew. 60 capsule 2 01/07/2025 04/07/2025 Active Start: 11-19-2020 End: 90-38-1183bkes 1 capsule by mouth once dailyDuloxetine 60 mg capsule,delayed release(DR/EC) Discontinued 60 MG PO Daily November 19, 2020 12:00amMa2024 2:16pmDULoxetine HCl Active0.8 ml enoxaparin sodium 100 mg/ml prefilled syringe (1 source)Low Molecular Weight HeparinStart: 76-24-025687 mg (rounded from 79.7 mg = 1 mg/kg 79.7 kg), Subcutaneous, 2 TIMES DAILY, First dose on Tue07/23/19 at 1300 Bridging off of heparin IV and await for therapeutic INR.Ferrous Bisglycinate Chelate 28 MG capsule (1 source)Start: 06-15-2023 End: 08-40-0362yzre 1 capsule by mouth at mealtimeFerrous Bisglycinate Chelate 28 MG capsule Indications: Iron deficiency anemia due to chronic bloodloss Take 1 capsule by mouth in the evening. Take with meals 0 06/15/2023 07/15/2023 Activeferrous sulfate 325 mg oral tablet (9 sources)Start: 03-05-2025 End: 56-59-0821qkgm 1 tablet by mouth every other dayferrous sulfate 325 (65 Fe) MG tablet Indications: Anemia due to stage 3b chronic kidney disease (CMS-HCC) Take 1 tablet (325 mg) by mouth every other day 45 tablet 3 03/05/2025 03/05/2026 ActiveFLUoxetine 4 mg/ml oral solution (19 sources)Serotonin Reuptake InhibitorStart: 29-01-7062pyqm 10 mg by mouth once daily10 mg, Oral, DAILY, First dose on Tue07/20/19 at 1500Start: 03-18-2019 take 1 capsule by mouth once dailyFLUoxetine (PROZAC) 40 MG capsule Take 40 mg by mouth daily 1 03/18/2019 ActiveFluoxetine Activefurosemide 20 mg oral tablet (20 sources)Loop DiureticStart: 08-14-2024 End: 70-62-0531mhwhmuejvq (Lasix) 20 MG tablet Indications: Primary hypertension , Chronic diastolic congestive heart failure, NYHA class 1 ([facility]) 2 tablets every am (= 40 mg) and 1 tablet (=20 mg) daily before supper 90 tablet 1 03/05/2025 ActiveStart: 98-81-7508hqzhkghdyt (Lasix) 20 MG tablet Indications: Chronic diastolic congestive heart failure, NYHA class1 (CMS/HCC) , Primary hypertension (CMS/HCC) , Edema, unspecified type 2 tablets every am (= 40 mg)and 1 tablet (=20 mg) daily before supper 90 tablet 06/18/2024 ActiveStart: 11-19-2020 End: 21-86-3820mifq 1 tablet by mouth once dailyStart: 07-09-2019 End: 60-94-287703 mg, Intravenous, EVERY 12 HOURS, First dose on 07/09/19 at 0800Start: 07-06-2019 End: 74-00-542471 mg, Intravenous, ONCE, 07/08/19 at 1145, For 1 doseStart: 07-06-2019 End: 20-64-0820Yzksaust Tue07/06/19 at 1105, For 1 dose Germania Andres: luis helleridetake 1 tablet by mouth once dailyfurosemide (LASIX) 20 MG tablet Take 20 mg by mouth daily 0 ActiveglipiZIDE 10 mg oral tablet (20 sources)SulfonylureaStart: 12-29-2022 End: 61-57-7836reksvBKCL (Glucotrol) 10 MG tablet Indications: 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, without long-term current use of insulin (CMS/HCC) Take Glipizide 10mg and Glipizide 5mg together (=15mg total) twice a day, in am and evening before meal 180 tablet 1 12/29/2022 02/21/2024 Discontinued (Therapy completed) Start: 12-29-2022 End: 75-08-3901vhvkiMKYY (Glucotrol) 5 MG tablet Indications: Type 2 diabetes mellitus with both eyes affected by mild nonproliferative retinopathy without macular edema, without long-term current use of insulin (CMS/HCC) Take Glipizide 5mg and Glipizide 10mg together (=15mg total) twice a day, in am and evening b efore meal 180 tablet 1 12/29/2022 02/21/2024 Discontinued (Therapy completed) Start: 80-52-2815fuwm 1 tablet by mouth twice daily before mealtimeglipiZIDE (GLUCOTROL) 5 MG tablet TAKE 1 TABLET BY MOUTH TWICE DAILY BEFORE A MEAL 0 08/30/2021 ActiveStart: 08-30-2021 End: 64-73-0041ezir 1 tablet by mouth once dailyglipiZIDE (GLUCOTROL) 5 MG tablet Take 1 tablet by mouth daily 0 08/30/2021 09/27/2023 Discontinued(LIST CLEANUP)Start: 11-19-2020 End: 74-72-6929qpfq 1 tablet by mouth twice dailyGlipizide 10 mg tablet Discontinued 10 MG PO Twice daily November 19, 2020 12:00am March 08, 2024 1:29pmglipiZIDE Activeglucagon (rdna) 1 mg injection (1 source)Antihypoglycemic AgentStart: 55-51-8474joba 1 mL intravenous route every hour1 mg, Intramuscular, PRN, Low blood sugar, Blood glucose less than 70 mg/dL and patient NOT ALERT or NPO and does not have IV access., Starting Tue07/03/19 at 1726 After administration, attempt intravenous access and start D5W at 100 mL/hr. Repeat blood glucose in 15 minutes x2 and notify provider.150 ml glucose 50 mg/ml injection (3 sources)Start: 12-49-151275 g, Oral, PRN, Low blood sugar, Starting [...] glucose in15 minutes x2 and notify provider.Start: 35-28-460892.5 g, Intravenous, PRN, Low blood sugar, Blood [...] using Glucostabilizer, dose as instructed per system.Start: 30-35-2148333 mL/hr, Intravenous, at 100 mL/hr, PRN, Low blood sugar, Starting e 07/03/19 at 1726 Start infusion following administration of dextrose 50% or glucagon.hydrALAZINE hydrochloride 25 mg oral tablet (9 sources)Arteriolar VasodilatorStart: 26-37-2164wsdd 1 tablet by mouth every eight hourshydrALAZINE (APRESOLINE) 25 MG tablet Take 1 tablet by mouth every 8 hours 90 tablet 3 07/24/2019 ActiveStart: 41-07-806802 mg, Intravenous, EVERY 6 HOURS PRN, High Blood Pressure, Starting 07/21/19 at 2253 For high blood pressure, SBP > 160 or DBP > 100. Hold for HR more than 90Start: 69-29-5375hjsl 1 dose by mouth three times daily25 mg, Oral, EVERY 8 HOURS SCHEDULED (3 times per day), First dose on 07/21/19 at 1400Start: 07-19-2019 End: 14-99-080424 mg, Intravenous, EVERY 6 HOURS PRN, High Blood Pressure, SBP > 160 or DBP > 100. Hold for HR more than 90, Starting Jesica 07/19/19 at 1700Start: 07-14-2019 End: 55-32-484767 mg, Intravenous, EVERY 4 HOURS PRN, High Blood Pressure, SBP > 160 or DBP > 100. Hold for HR more than 90, Starting 07/14/19 at 0744Start: 37-75-551735 mg, Intravenous, ONCE, Jesica 07/05/19 at 1030, For 1 doseStart: 07-03-2019 End: 07-14-20195 mg, Intravenous, EVERY 5 MIN PRN, High Blood Pressure, Starting 07/03/19 at 1726 Refer to hemodynamic goals for specific blood pressure parameters. May repeat doses up to a total of 20mg IV every 6 hours.insulin glargine 100 unt/ml injectable solution (6 sources)Insulin AnalogStart: 32-04-7346ootiybg glargine (LANTUS) 100 UNIT/ML injection vial Inject 20 Units into the skin nightly 1 vial Active Start: 18-11-0956Zjonc: 07-16-2019 End: 30-34-1483buxkmi 15 [IU] by subcutaneous injection once daily15 Units, Subcutaneous, NIGHTLY, First dose (after last modification) on Tue07/16/19 at 2100insulin lispro 100 unt/ml injectable solution (12 sources)Insulin AnalogStart: 37-70-6505uccvuue lispro (HUMALOG) 100 UNIT/ML injection vial Inject 0-9 Units into the skin nightly 1 vial Active Start: 61-64-5287hvcmvmz lispro (HUMALOG) 100 UNIT/ML injection vial Inject 0-18 Units into the skin 3 times daily (with meals) 1 vial 3 07/24/2019 ActiveStart: 07-03-2019 End: 50-30-0336Yrbuv: 07-03-2019 End: 69-82-81496-18 Units, Subcutaneous, 3 TIMES DAILY WITH MEALS, First dose on Tue07/11/19 at 0830 High Dose Corrective Algorithm Glucose: Dose: 70-139 &nbsp ; No Insulin&nbsp ;140-199 3 Units 200-249 6 Units 250-299 9 Units 300-349 12 Units 350- 400 15 Units Over 400 18 Units4 ml labetalol hydrochloride 5 mg/ml cartridge (1 source)beta-Adrenergic BlockerStart: 81-52-558419 mg, Intravenous, EVERY 4 HOURS PRN, High Blood Pressure, SBP > 160 or DBP > 100. Hold for HR less than 60, Starting 07/14/19 at 0744levothyroxine sodium 0.088 mg oral tablet (20 sources)l-ThyroxineStart: 05-06-2023 End: 48-04-2041ycqt 1 tablet by mouth once dailylevothyroxine (Synthroid, Levoxyl) 88 MCG tablet Indications: Acquired hypothyroidism Take 1 tablet(88 mcg) by mouth Daily 90 tablet 1 10/06/2024 04/04/2025 ActiveStart: 07-16-2021 Levothyroxine Sodium 88 MCG CAPS 88 mcg 07/16/2021 ActiveStart: 07-16-2021 levothyroxine (SYNTHROID) 100 MCG tablet 1 tablet 07/16/2021 ActiveStart: 11-19-2020 End: 51-87-3584kzpe 1 tablet by mouth once dailyLevothyroxine 125 mcg Tablet Discontinued 125 MCG PO Daily November 19, 2020 12:00am March 08, 2024 1:26pm take 1 capsule by mouth once dailylevothyroxine 88 mcg capsule take 1 capsule by oral route every day 88 MCG - Activeloratadine 10 mg oral tablet (9 sources)Start: 64-81-4699ajav 1 tablet by mouth once dailylosartin (2 sources)losartin ActiveMagnesium (20 sources)take 1 tablet by mouth in the eveningmagnesium 200 MG tablet Take 200 mg by mouth in the evening Activemagnesium 200 mg tablet - Active End: 08-99-3899asqrsyokr 250 mg tablet - No Longer Activetake [...] oxide 400 mg oral tablet (15 sources)Start: 70-72-7763Rmkqj: 03-08-2024 End: 12-41-8434Rrjfrrkbf Oxide 400 mg magnesium tablet Discontinued 200 MG PO Daily March 08, 2024 1:28pm October 16, 2024 2:21pmStart: 11-19-2020 End: 55-91-7168Dmcilwiqm Oxide 400 mg magnesium Tablet Discontinued 400 MG PO As Directed November 19, 2020 12:00am March 08, 2024 1:34pmtake 0.5 tablet by mouth in the morningmagnesium oxide (MAGOX) 400 mg tablet Take 0.5 tablets (200 mg total) by mouth in the morning. 0 Crmfdu208 ml magnesium sulfate 10 mg/ml injection (1 source)Start: g, Intravenous, at 100 mL/hr, Administer over 1 Hours, PRN, Other, Electrolyte Replacement, Starting Tue07/03/19 at 1726 For magnesium less than 2 mg/dl give 1 gram X 2 doses (Total of 2 grams). Check with MD if elevation of BUN and creatinine. Repeat magnesium level in AM. methylPREDNISolone 4 mg oral tablet (1 source)CorticosteroidStart: 59-05-8706rbirurJQRORVJpvweo 4 MG as directed Orally Once a [...] tabs at bedtime . 0 Active End: 21-16-9511nlhiic 500 MG extended release capsule Take 500 [...] for nausea or vomiting. Activepolyethylene glycol 3350 47469 mg powder for oral solution (1 source)Osmotic LaxativeStart: g, Oral, DAILY, First dose on Tue07/04/19 at 0900 First line therapy for constipationPolyethylene Glycols (6 sources)Start: 51-74-6197EPGLDNRPVEWK GLYCOL EX Polyethylene Glycol Active 1 EACH MISCELLANE Daily November 19, 2020 11:14am ActiveStart: 11-19-2020 End: 24-09-3974Urktqstwvnii Glycol Powder Discontinued 1 EACH MISCELLANE Daily as needed for Constipation November 19, 2020 12:00am March 08, 2024 1:34pm Start: 11-19-2020 End: 19-01-6385Nhcsbfayvbpx Glycol Powder Discontinued 1 EACH MISCELLANE Daily as needed for Constipation November 18, 2020 11:00pm March 08, 2024 12:34pm potassium 99 mg extended release oral tablet (8 sources)Potassium 99 MG TABS Take 30 mg by mouth 2 times daily 0 Etrjwq913 ml potassium chloride 0.1 meq/ml injection (8 sources)Start: 36-59-9485fydf 10 mL intravenous route every hour as mEq, Intravenous, at 100 mL/hr, PRN, Potassium [...] if GI adverse effects occur.Start: 07-11-2019 End: 03-34-026062 mEq, Intravenous, at 50 mL/hr, ONCE, Tue07/11/19 at 1700, For 1 doseStart: 07-03-2019 End: 10-91-811056 mEq, Intravenous, at 50 mL/hr, EVERY HOUR, [...] Activepsyllium 400 mg oral capsule (11 sources)Start: 09-69-8191qiqzvcst 0.52 g capsule Psyllium Husk (Metamucil) 0.52 gram Capsule Active 0.52 GM PO Daily November 19, 2020 11:14am 11/19/2020 ActiveStart: 11-19-2020 End: 92-44-4708Cqbdirmy Husk (Metamucil) 0.52 gram Capsule Discontinued 0.52 GM PO Daily as needed for Constipation November 19, 2020 12:00am March 08, 2024 1:34pmQUEtiapine 25 mg oral tablet (9 sources)Atypical AntipsychoticStart: 50-77-8596JGIhhxpffm (SEROquel) 25 MG tablet Indications: Multi-infarct dementia with delirium (CMS/HCC) 1/2 - 1 tablet at bedtime 30 tablet 0 06/07/2023 ActiveStart: 29-61-2744Znuui: 07-18-2019 End: 51-32-5691nair 25 mg by mouth twice daily25 mg, Oral, 2 TIMES DAILY, First dose on Tue07/18/19 at 1300 First dose tonight.thiamine 100 mg oral tablet (2 sources)Start: 99-80-3529Kzgiv: 17-55-4310obuc 100 mg by mouth once nlsum372 mg, Oral, DAILY, First dose on Tue07/15/19 at 0930tiZANidine 4 mg oral tablet (7 sources)Central alpha-2 Adrenergic AgonistStart: 43-83-2683Okcgc: 10-20-2012 tiZANidine (ZANAFLEX) 4 MG tablet Take 4 mg of ampicillin by mouth Takes as needed 0 10/20/2012 ActivetraMADol hydrochloride 50 mg oral tablet (2 sources)Opioid Agonisttake 1 tablet by mouth four times daily as needed for paintraMADol (ULTRAM) 50 MG tablet Take 50 mg by mouth 4 times daily as needed for Pain. 0 Activetriamcinolone acetonide 1 mg/ml topical cream (18 sources)CorticosteroidStart: 74-69-6922feqetuatuqlhs (Kenalog) 0.1 % cream Indications: Dermatitis Apply topically Daily 90 g 07/11/2023 ActiveStart: 39-78-2905IYEFMOP - 10 mg 14 Feb, 2017 20 [...] Hazardous med- See facility policy for handling/disposalStart: 74-80-3005msbs 1 tablet by mouth once dailywarfarin (COUMADIN) [...] See facility policy for handling/disposal (20 sources)Start: 18-40-3800Ulru patient is currently receiving daily warfarin. Please [...] 07/15/19 at 1145, Until DiscontinuedStart: 07-15-2019 End: 17-01-5906129 Units/hr (5 mL/hr), Intravenous, at 5 mL/hr, CONTINUOUS, Starting 07/15/19 at 1130 LOW DOSE HEPARIN PROTOCOL Start at 500 units/hr Adjust infusion rate based on aPTT results (aPTT target range 1.5-2) - No boluses aPTT < 30 Increase infusion by 4 units/kg/hr wESQ17-01 Increase infusion by 2 units/kg/hr aPTT 50-70 [...] Tue07/11/19 at 1800, Until DiscontinuedStart: 07-11-2019 End: 98-42-099631 mg/hr (10 mL/hr), Intravenous, at 10 mL/hr, [...] at 50% of previous rateStart: 07-07-2019 End: 18-07-6242775 mg, Intravenous, at 600 mL/hr, Administer over [...] at 0830 Use in-line filter.Start: 07-06-2019 End: 86-32-5178802 mg, Intravenous, at 600 mL/hr, Administer over [...] TOF and clinical response in 1 hourStart: 94-03-1677xevl 1 tablet by mouth every four hours [...] than 1.05 mmol/L End: 07-24-2019 (2 sources)Start: 35-93-1359Oldol: 25-44-0168ltvq 1 tablet by mouth once daily at breakfast1 tablet, Oral, DAILY WITH BREAKFAST, First dose on Tue07/04/19 at 0800 Start when taking po. (1 source) Completed/Discontinued Medications MedicationDrug Class(es)DatesSig (Normalized)Sig (Original)acetaminophen 325 mg / HYDROcodone bitartrate 5 mg oral tablet (5 sources)Opioid AgonistStart: 11-19-2020 End: 05-61-0227lydu 1 tablet by mouth twice daily as needed for painHydrocodone- Acetaminophen 5-325 mg Tablet Discontinued 1 TAB PO Twice daily as needed for Pain 2020 12:00am March 08, 2024 1:34pmALPRAZolam 0.25 mg oral tablet (20 sources)BenzodiazepineStart: 01-22-2025 End: 49-95-9855ruel 0.5 tablet by mouth in the morningALPRAZolam (Xanax) 0.25 MG tablet Indications: Anxiety associated with depression Take 0.5 tablets (0.125 mg) by mouth in the morning and 0.5 tablets (0.125 mg) before bedtime. 01/22/2025 03/05/2025 Discontinued (Therapy completed)Start: 12-27-2024 End: 90-65-0691hyye 1 tablet by mouth in the morningALPRAZolam (Xanax) 0.25 MG tablet Indications: Anxiety associated with depression Take 1 tablet (0.25 mg) by mouth in the morning and 1 tablet (0.25 mg) before bedtime. 60 tablet 12/27/2024 01/26/2025 ActiveStart: 64-71-4842vpar 1 tablet by mouth once daily Start: 11-16-2023 End: 69-91-9791nuaq 1 tablet by mouth every twenty-four hours in the morning ALPRAZolam XR (Xanax XR) 1 MG 24 hr tablet Indications: Anxiety associated with depression Take 1 tablet (1 mg) by mouth in the morning. Do not crush, chew, or split.. 30 tablet 5 07/30/2024 01/26/2025 ActiveStart: 06-10-2023 End: 52-97-6878yhzq 1 tablet by mouth every twenty-four hours in the morning ALPRAZolam XR (Xanax XR) 1 MG 24 hr tablet Indications: Anxiety associated with depression Take 1 tablet (1 mg) by mouth in the morning. Do not crush, chew, or split.. 30 tablet 2 06/10/2023 09/08/2023 ActiveStart: 49-29-0315lwir 1 tablet by mouth three times dailyALPRAZolam (XANAX) 0.25 MG tablet 1 tablet 3 TIMES DAILY (route: oral) 01/10/2023 Activetake 1 tablet by mouth three times daily alprazolam 1 mg tablet take 1 tablet by oral route 3 times every day 1 MG - ActiveamLODIPine 10 mg oral tablet (20 sources)Dihydropyridine Calcium Channel BlockerStart: 07-19-2019 End: 92-99-3668acqt 5 mg by mouth once daily5 mg, Oral, DAILY, First dose on [place] 07/19/19 at 1130Start: 03-18-2019 End: 34-78-4186wwzw 1 tablet by mouth once dailyAmlodipine 10 mg tablet Discontinued 10 MG PO Daily November 19, 2020 12:00am March 08, 2024 1:33pm10 ml calcium chloride 100 mg/ml prefilled syringe (1 source)Start: 07-03-2019 End: 12-71-5229Ssnhxunr 07/03/19 at 1825, For 1 dose SERA GARCÍA: cabinet overridecalcium chloride 0.0014 meq/ml / potassium chloride 0.004 meq/ml / sodium chloride 0.103 meq/ml / sodium lactate 0.028 meq/ml injectable solution (1 source)Start: 07-03-2019 End: 35-87-3157Nytpnuzndst, at 125 mL/hr, CONTINUOUS, Starting Tue07/03/19 at 0700chlorothiazide 500 mg injection (3 sources)Thiazide DiureticStart: 07-17-2019 End: 28-32-0192030 mg, Intravenous, ONCE, Tu 07/17/19 at 1115, For 1 dose Reconstitute vial with 18 mL sterile water for injection for a final concentration of 28 mg/mL.Start: 07-15-2019 End: 70-81-5193732 mg, Intravenous, ONCE, [place] 07/15/19 at 1700, For 1 dose Reconstitute vial with 18 mL sterile water for injection for a final concentration of 28 mg/mL.Start: 07-12-2019 End: 08-14-5436279 mg, Intravenous, ONCE, [facility] 07/12/19 at 1200, For 1 dose Reconstitute vial with 18 mL sterile water for injection for a final concentration of 28 mg/mL.100 ml clevidipine 0.5 mg/ml injection (1 source)Dihydropyridine Calcium Channel BlockerStart: 07-10-2019 End: mg/hr (4 mL/hr), Intravenous, at 4 mL/hr, CONTINUOUS, Starting Tue07/10/19 at 0815 Titrate to RET593-799 Dose Range: 4 to 21 mg/hr Max [...] capsule (20 sources)Histamine-1 Receptor AntagonistStart: 11-19-2020 End: 75-18-0363bjox 1 capsule by mouth once daily at bedtimeDiphenhydramine Hcl (Benadryl) 25 mg Capsule Discontinued 25 MG PO Daily at bedtime November 19, 2020 12:00am March 08, 2024 1:33pmStart: 07-04-2019 End: 87-99-9448accq 25 mg by mouth once daily as needed for sleep25 mg, Oral, NIGHTLY PRN, Sleep, Starting Tue07/04/19 at 0000Start: 53-01-5404ysqy 2 capsules by mouth every four to six hours as neededBenadryl 25 mg capsule take 2 capsule (50MG) by oral route every 4 - 6 hours as needed 50 MG - Whhcgt622 ml DOPamine hydrochloride 1.6 mg/ml injection (1 [...] mg/ml injection (1 source)General AnestheticStart: 07-11-2019 End: 73-19-3182Blwwkelbify, DAILY PRN, Starting Tue07/11/19 at 0502famotidine 20 mg oral tablet (20 sources)Histamine-2 Receptor AntagonistStart: 07-06-2019 End: 20-34-8134zhfw 1 tablet by mouth once dailyFamotidine 20 mg tablet Discontinued 20 MG PO Daily November 19, 2020 12:00am March 08, 2024 1:33pm Start: 07-05-2019 End: 66-41-9936gfka 20 mg by mouth twice daily20 mg, Oral, 2 TIMES DAILY, First dose on Tue07/05/19 at 0900Start: 03-36-375775 mg, Intravenous, 2 TIMES DAILY, First dose on Tue07/03/19 at 2100, For 3 doses Dilute with 5-10 mL 0.9% sodium chloride. Administer over 2 minutes.gabapentin 600 mg oral tablet (11 sources)Anti-epileptic AgentStart: 11-19-2020 End: 03-17-6019xlvt 1 tablet by mouth twice dailyGabapentin 600 [...] sources)Peroxisome Proliferator Receptor alpha AgonistStart: 03-18-2019 End: 59-59-5917Wcaucyqgnzu Skfltf875 ml heparin sodium, porcine 100 unt/ml injection (2 sources)Unfractionated Heparin, Anti-coagulantStart: 07-09-2019 End: 81-39-5154994 Units/hr (5 mL/hr), Intravenous, at 5 mL/hr, [...] after every dose change. Start: 07-07-2019 End: 89-01-3449ohfjoe 1 dose by subcutaneous injection three times daily5,000 Units, Subcutaneous, EVERY 8 HOURS SCHEDULED (3 times per day), First dose on 07/07/19 at 1400ipratropium bromide 0.042 mg/actuat metered dose nasal spray (20 sources)AnticholinergicStart: 12-20-2023 End: 64-07-9966krewluvpiuy (Atrovent) 0.06 % nasal spray Indications: Anxiety associated with depression Administer 2 sprays into each nostril in the morning and 2 sprays at noon and 2 sprays in the evening and 2 sprays before bedtime. 15 mL 07/30/2024 03/05/2025 Discontinued (Therapy completed)Lactobacillus Combination No.4 (Probiotic) 3 billion cell Capsule (5 sources)Start: 11-19-2020 End: 15-02-8808reeh 3 capsules by mouth once dailyLactobacillus Combination No.4 (Probiotic) 3 billion cell Capsule Discontinued 3000 MMU CELLS PO Daily November 19, 2020 12:00am March 08, 2024 1:34pmStart: 11-19-2020 End: 51-88-3562vpxk 3 capsules by mouth once dailyLactobacillus Combination No.4 (Probiotic) 3 billion cell Capsule Discontinued 3000 MMU CELLS PO Daily November 18, 2020 11:00pm March 08, 2024 12:33mg193 ml levETIRAcetam 5 mg/ml injection (2 sources)Start: 07-08-2019 End: 39-49-7408571 mg, Intravenous, EVERY 12 HOURS, First dose on 07/08/19 at 0800, Until DiscontinuedStart: 07-07-2019 End: ,000 mg, Intravenous, ONCE, 1 dose, 07/07/19 [place] 56679 ml LORazepam 2 mg/ml injection (2 sources)BenzodiazepineStart: 07-07-2019 End: mg, Intravenous, EVERY 5 MIN PRN, Seizures, Starting 07/07/19 at 1843Start: 07-05-2019 End: 07-15-20192 mg, Intravenous, EVERY 4 HOURS PRN, Anxiety, Starting [place] 07/05/19 at 1330losartan potassium 25 mg oral tablet (20 sources)Angiotensin 2 Receptor BlockerStart: 11-19-2020 End: 73-31-8812dkhv 2 tablets by mouth once dailyLosartan 25 mg tablet Discontinued 50 MG PO Daily November 19, 2020 12:00am March 08, 2024 1:34pm Start: 79-22-5379qota 1 tablet by mouth once dailylosartan (COZAAR) 25 MG tablet Take 25 mg by mouth daily 1 03/18/2019 ActiveStart: 31-57-6607Wedit: 03-18-2019 take 1 tablet by mouth once dailylosartan (COZAAR) 50 MG tablet Take 50 mg by mouth daily 1 03/18/2019 ActivemetFORMIN hydrochloride 1000 mg oral tablet (13 sources)BiguanideStart: 03-18-2019 End: 16-28-3438sioefuzxhf tartrate 25 mg oral tablet (8 sources)beta-Adrenergic BlockerStart: 07-14-2019 End: 51-54-1839bbpu 25 mg by mouth twice daily25 mg, Oral, 2 TIMES DAILY, First dose (after last modification) on 07/14/19 at 0900Start: 07-13-2019 End: 73-76-7249zfsk 12.5 mg by mouth twice daily12.5 mg, Oral, 2 TIMES DAILY, First dose on Tue07/13/19 at 1245Start: 07-07-2019 End: 07-14-20192.5 mg, Intravenous, EVERY 6 HOURS, First dose on 07/07/19 at 2045 Hold for SBP < 100 and/or HR < 60 bpmStart: 07-07-2019 End: 07-14-3290Srrzirhm 07/07/19 at 1109, For 1 dose Germania Andres: luis overrideStart: 07-03-2019 End: 82-97-7947wrqo 12.5 mg by mouth once daily12.5 mg, Oral, ONCE, 07/03/19 at 1015, For 1 dose, Pre-op (day of surgery)Start: 07-03-2019 End: 72-74-4105fbfd 25 mg by mouth twice daily25 mg, [...] HOURS PRN, Anxiety, Agitation, Starting Tue07/15/19 at 7949933 ml milrinone lactate 0.2 mg/ml injection (2 sources)Phosphodiesterase 3 InhibitorStart: 07-04-2019 End: .375 mcg/kg/min 76.5 kg (8.6063 mL/hr, rounded to 8.6 mL/hr), Intravenous, at 8.6 mL/hr, CONTINUOUS, Starting Tue07/04/19 at 0800 Do not titrate without calling surgeon STAT - UnitStart: 07-04-2019 End: 39-38-9507Ceaobzen Tue07/04/19 at 0741, For 1 dose ISABEL GELLER: cabinet overridemupirocin 0.02 mg/mg topical ointment (2 sources)RNA Synthetase Inhibitor AntibacterialStart: 07-03-2019 End: 60-17-9161Gbaox, 2 TIMES DAILY, First dose on Tue07/03/19 at 2100, For 10 doses1 ml naloxone hydrochloride 0.4 mg/ml injection (1 source)Opioid AntagonistStart: 07-11-2019 End: 00-53-1400Zfhsevja Tue07/11/19 at 0428, For 1 dose TURNER WALTERS: cabinet ml nitroglycerin 0.2 mg/ml injection (2 sources)Nitrate [...] mmHg; notify physician if indicatedStart: 06-06-2019 End: 77-30-7468fmqjxIQCZMWFC (NITROSTAT) SL tablet 0.4 mgpotassium bicarbonate 20 meq effervescent oral tablet (1 source)Start: 07-07-2019 End: 33-88-9228kklx 1 tablet by mouth once, then take [...] if GI adverse effects occur.Start: 07-07-2019 End: 79-08-6527dpap 1 tablet by mouth once, then take [...] meq oral tablet (5 sources)Start: 11-19-2020 End: 47-47-0818evku 2 tablets by mouth once daily in the morning, then take 1 tablet by mouth in the eveningPotassium Gluconate 595 mg (99 mg) tablet Discontinued 595 MG PO Daily November 19, 2020 12:00am March 08, 2024 1:34pm 2 tab in am and 1 tab in pm100 ml propofol 10 mg/ml injection (3 sources)General AnestheticStart: 07-11-2019 End: 55-55-028856 mcg/kg/min 82.8 kg (4.968 mL/hr, rounded to [...] be discarded after 12 hours.Start: 07-03-2019 End: 79-32-7971Ucnksdta Tue07/03/19 at 2146, For 1 dose Alondra Osorio: cabinet override Do not administer through the same I.V. catheter with blood or plasma. Tubing and any unused portions of propofol vials should be discarded after 12 hours.Start: 07-03-2019 End: 99-95-785819 mcg/kg/min 65.4 kg (3.924 mL/hr, rounded to [...] injection 0.4 mg (1 source)Start: 09-27-2023 End: 33-56-5681renkqhllsmf (LEXISCAN) injection 0.4 mgSennosides (Senna) 8.6 mg Tablet (3 sources)Start: 11-19-2020 End: 77-24-3197xwtm 1 tablet by mouth once dailySennosides (Senna) 8.6 mg Tablet Discontinued 8.6 MG PO Daily November 19, 2020 12:00am February 1:34pm Start: 11-19-2020 End: 53-95-7196vnua 1 tablet by mouth once dailySennosides (Senna) 8.6 mg Tablet Discontinued 8.6 MG PO Daily November 18, 2020 11:00pm February 12:34pm sennosides, detention 8.6 mg oral tablet (20 sources)Start: 11-19-2020 End: 56-89-9626tyxk 1 tablet by mouth once dailySennosides (Senna) 8.6 mg Tablet Discontinued 8.6 MG PO Daily November 19, 2020 12:00am February 1:34pm Sennosides 8.6 MG capsule as needed at bedtime. Xqckge68 ml sodium bicarbonate 84 mg/ml injection (5 sources)Start: 07-07-2019 End: 17-64-649399 mEq, Intravenous, ONCE, 07/07/19 at 0945, For 1 doseStart: 07-06-2019 End: 46-66-629819 mEq, Intravenous, ONCE, 07/07/19 at 0315, For 1 doseStart: 07-06-2019 End: 91-92-3517Tkzmgoom Tue07/06/19 at 1002, For 1 dose Rama Booth: luis overrideStart: 07-03-2019 End: 57-23-701113 mEq, Intravenous, EVERY 30 MIN PRN, Other, For Base deficit greater than -5, Starting Tue07/03/19 at 1726, For 12 hours5 ml sodium chloride 9 mg/ml injection (17 sources)Start: 09-27-2023 End: 22-95-7475uedtao chloride flush 0.9 % injection 5-40 mLStart: 09-01-2023 sodium chloride flush 0.9 % injection 5-40 mLStart: 30-89-2013unosje chloride flush 0.9 % injection 5-40 mLStart: .9 % sodium chloride infusion Start: 81-50-6460mssxtn chloride flush 0.9 % injection 5-40 mLStart: 07-13-2019 10 mL, Intravenous, PRN, Line Care, Starting Tue07/13/19 at 1324 Flush each lumen of PICC.Start: 07-03-2019 End: 84-00-9756Xcbedtzajkp, at 75 mL/hr, CONTINUOUS, Starting Tue07/03/19 at 2345Start: 57-61-252500 mL, Intravenous, EVERY 12 HOURS SCHEDULED (2 times per day), First dose on Tue07/13/19 at 2100 Flush each lumen of PICC not connected to a continuous infusion.Start: 02-91-9105wsxs 10 mL intravenous route once10 mL, Intravenous, PRN, Line Care, Starting Tue07/03/19 at 1726 After every IV line useStart: 06-06-2019 End: 57-43-4439385 mL, Intravenous, at 937.5 mL/hr, As needed, IF patient heart rate is less than 50 BPM and Systolic BP is less than 90 mmHG, notify Benefits Consulting Analyst, place patient in Trendelenberg, andgive 0.9% NaCl bolus, Starting Tue06/06/19 at 1227, For 1 doseStart: 06-06-2019 End: 54-53-7739nfxxum chloride 0.9% (NS)spironolactone 25 mg oral tablet (20 sources)Aldosterone AntagonistStart: 11-19-2020 End: 29-89-8208ytai 1 tablet by mouth once dailySpironolactone 25 mg tablet Discontinued 25 MG PO Daily November 19, 2020 12:00am March 08, 2024 1:34pm Start: 89-76-7984efvp 50 mg by mouth twice daily50 mg, Oral, 2 TIMES DAILY, First dose (after last modification) on Tue07/14/19 at 1800Start: 03-18-2019 End: 58-97-4414bzqh 25 mg by mouth twice daily25 mg, Oral, 2 TIMES DAILY, First dose (after last modification) on Tue07/13/19 at 1800Start: 03-18-2019 End: 22-98-9845hacr 25 mg by mouth once daily25 mg, Oral, DAILY, First dose on [place] 07/12/19 at 1200succinylcholine chloride 20 mg/ml injectable solution (1 source)Depolarizing Neuromuscular BlockerStart: 07-11-2019 End: 15-05-2349Clxowbrratm, DAILY PRN, Starting Tue07/11/19 at 0503Suprep Bowel Prep Kit 17.5-3.13-1.6 GM/180ML (2 sources)Start: 80-73-7546Nbnxrn Bowel Prep Kit 17.5-3.13-1.6 GM/180ML 177 ML BOTTLE AT 4 PM AND ONE BOTTLE AT 11 PM DAY PRIOR TO PROCEDURE Orally Twice a day for 1 day(s) Nov, Not-Takingtechnetium sestamibi (CARDIOLITE) injection 10 millicurie (1 source)Start: 09-27-2023 End: 67-86-8586iuizpzpxsk sestamibi (CARDIOLITE) injection 10 millicurie traZODone hydrochloride 50 mg oral tablet (20 sources)Serotonin Reuptake InhibitorStart: 11-19-2020 End: 46-90-3290Zngrfcgkd 50 mg tablet Discontinued 25 MG PO Daily at bedtime November 19, 2020 12:00am February 1:34pmStart: 04-30-2019 End: 67-75-4768artv 0.5 tablet by mouth once dailytraZODone (DESYREL) 150 mg tablet Take 150 mg by mouth nightly. Take 1/2 tablet. 0 ActivetraZODone HCl ActiveTurmeric Root Extract 500 mg capsule (5 sources)Start: 03-08-2024 End: 02-69-1826atqo 1 capsule by mouth twice dailyTurmeric Root Extract 500 mg capsule Discontinued 500 MG PO Twice daily March 08, 2024 12:00am March 08, 2024 1:46pmStart: 03-08-2024 End: 49-10-3761gbil 1 capsule by mouth twice dailyTurmeric Root Extract 500 mg capsule Discontinued 500 MG PO Twice daily March 07, 2024 11:00pm March 08, 2024 12:04al540 ml vancomycin 5 mg/ml injection (1 source)Glycopeptide AntibacterialStart: 07-04-2019 End: ,000 mg (15.3 mg/kg), Intravenous, at 200 mL/hr, Administer over 60 Minutes, EVERY 12 HOURS, Firstdose on Tue07/04/19 at 0200, For 3 doses Post-opsvecuronium bromide 1 mg/ml injectable solution (2 sources)Nondepolarizing Neuromuscular BlockerStart: 07-11-2019 End: 37-06-587982 mg, Intravenous, ONCE, Tue07/11/19 at 0645, For 1 doseStart: 07-11-2019 End: 29-05-2788Eflqfvse Tue07/11/19 at 0629, For 1 dose Veronica Valente: cabinet override (2 sources)Start: 07-07-2019 End: 67-24-844774 mcg/hr (1.25 mL/hr, rounded to 1.3 mL/hr), [...] fentanyl titration at previous rateStart: 07-06-2019 End: 86-08-923262 mcg/hr (1.25 mL/hr, rounded to 1.3 mL/hr), Intravenous, at 1.3 mL/hr, CONTINUOUS, Starting Tue07/06/19 at 0730 (1 source)Start: 07-16-2019 End: 09-69-8296blcd 15 mL intravenous route once as tozsol74 mL, Intravenous, IMG ONCE PRN, Other, Starting 07/16/19 at 1752, For 1 dose (1 source) End: 07-24-2019 (1 source)Start: 07-12-2019 End: 94-35-844390 mg, Intravenous, EVERY 6 HOURS PRN, High Blood Pressure, Starting [place] 07/12/19 at 1659 SBP > 160 STAT Problems Active Problems Problem ClassificationProblemDateDocumented DateEpisodic/ChronicAcute cerebrovascular disease (20 sources)Cerebral infarction; Translations: [Ischemic stroke]Onset: 07-07-2019 Resolved: [id number] disorders (20 sources)Mixed anxiety and depressive disorder; Translations: [Other specified anxiety disorders]Onset: 780059-52-3314JmldeytGvfbbvn dysrhythmias (20 sources)Chronic atrial fibrillation; Translations: [Chronic atrial fibrillation, unspecified]Onset: 648606-36-6974SfqiltzUjlrmfs dysrhythmias (1 source)Palpitations; Translations: [Palpitations]EpisodicCataract (20 sources)Bilateral age-related nuclear cataracts; Translations: [Age-related nuclear cataract, bilateral]Onset: 932509-32-6438HrpmakeBhszpvz kidney disease (20 sources)Chronic kidney disease, stage 4 (severe); Translations: [Chronic kidney disease stage 4]Onset: 07-03-2020 Resolved: 392682-50-1141GiurqvzFpoeenfhqsimg of surgical procedures or medical care (20 sources)Postsurgical menopause; Translations: [Asymptomatic postprocedural ovarian failure]Onset: 862187-06-9326JciqyqoJhcgwqmreq disorders (20 sources)Long QT syndrome; Translations: [Long QT syndrome]Onset: 03-03-2015 57-52-7676PjcrlpeYhiloiwxrz heart failure; nonhypertensive (20 sources)Congestive heart failure; Translations: [Unspecified diastolic (congestive) heart failure]Onset: 567242-10-2357AbdhjctJdmknwxo atherosclerosis and other heart disease (20 sources)Multi vessel coronary artery disease; Translations: [Atherosclerotic heart disease of [place] coronary artery without angina pectoris]Onset: 07-03-2019 Resolved: 599823-50-6833BxalfbnDzbesophgb and other anemia (7 sources)Anemia co-occurrent and due to chronic kidney disease stage 3; Translations: [Anemia due to stage 3b chronic kidney disease (CMS-HCC)]Onset: 695746-47-5995UbtzqdgGnaazhybdl and other anemia (1 source)Anemia in chronic kidney disease; Translations: [Anemia in chronic kidney disease]Onset: 86-37-6492ZidgkoiTujnxkdj, dementia, and amnestic and other cognitive disorders (20 sources)Chronic organic mental disorder; Translations: [Unspecified mental disorder due to known physiological condition]Onset: 07-31-2020 Resolved: 179600-43-3769XmkoragLregxsbi mellitus with complications (20 sources)Type 2 diabetes mellitus with hyperglycemia; Translations: [Type 2 diabetes mellitus with other circulatory complications]Onset: 10-20-2012 Resolved: 11-29-6307YitxxpmLbknkbla mellitus without complication (4 sources)Diabetes mellitus; Translations: [Type 2 diabetes mellitus without complications]Onset: 42-77-2410QlszfxiWtuuxwzfw of lipid metabolism (20 sources)Hyperlipidemia; Translations: [Mixed hyperlipidemia]Onset: 25-40-6963UuafgswKjqhhciqxp disorders (20 sources)Gastro-esophageal reflux disease without esophagitis; Translations: [Gastroesophageal reflux disease]Onset: 968484-67-4499NibiqdtLomsnkgny hypertension (20 sources)Hypertensive disorder; Translations: [Essential (primary) hypertension]Onset: 01-03-1041XmuvcvuTidldsnqtgyid symptoms and ill-defined conditions (2 sources)Urinary incontinence; Translations: [Unspecified urinary incontinence]76-45-1674ZmcyktaQhrig valve disorders (20 sources)History of aortic valve replacement; Translations: [Aortic valve stenosis]Onset: 61-43-7205IdtekurMygqgebdgppt with complications and secondary hypertension (20 sources)Hypertensive chronic kidney disease with stage 1 through stage 4 chronic kidney disease, or unspecified chronic kidney disease; Translations: [Ischemic nephropathy]Onset: 431569-19-4328AjyvvpmMrtezkyeyohcv and screening for infectious disease (1 source)Contact with and (suspected) exposure to other viral communicable diseasesEpisodicInflammation; infection of eye (except that caused by tuberculosis or sexually transmitteddisease) (4 sources)Acute infectious conjunctivitis; Translations: [Unspecified acute conjunctivitis, bilateral]17-74-6738RsvjatwsHnlb effects of cerebrovascular disease (20 sources)Flaccid hemiplegia of left nondominant side; Translations: [Hemiplegia and hemiparesis following cerebral infarction affecting left non- dominant side]Onset: 08-20-2019 Resolved: 721475-33-4219RrzaymfDqfgorb and fatigue (20 sources)Chronic fatigue syndrome; Translations: [Chronic fatigue syndrome] Onset: 566589-91-8549ZskvffhHvotuimrzb disorders (1 source)Hormone replacement therapy; Translations: [HORMONE REPLACEMENT THERAPY]Onset: 19-64-9827FgqdozbyEpdf disorders (20 sources)Major depressive disorder, single episode, unspecified; Translations: [Recurrent major depressive episodes, moderate ]Onset: 08-17-2021 10-77-7666QzqzdhnAsayslhdfvk deficiencies (20 sources)Vitamin D deficiency; Translations: [Vitamin D deficiency, unspecified]Onset: 18-19-1090VedotikIpqlfpkoe or stenosis of precerebral arteries (20 sources)Left carotid artery stenosis; Translations: [Occlusion and stenosis of left carotid artery]Onset: 956822-32-1123KbnwzrlMuut wounds of head; neck; and trunk (2 sources)Scalp laceration; Translations: [Laceration without foreign body of scalp, subsequent encounter]88-90-0287KnqkymrfXsqjzapcuhnupd (20 sources)Osteoarthritis of left knee joint; Translations: [Unilateral primary osteoarthritis, left knee]Onset: 110557-44-1015JxhyxvzHzzcb aftercare (1 source)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; Translations: [SKILLED NURSING CURRNT USE ANTICOAGULANTS]Onset: 92-76-0900FwwnprrvPgcqf aftercare (1 source)Other custodial (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; Translations: [OTH SKILLED NURSING CURRENT DRUG THERAPY]Onset: 57-96-2053EjftrgglMwglj aftercare (2 sources)Patient encounter status; Translations: [Encounter for follow-up examination after completed treatment for conditions other than malignant neoplasm]17-53-1187BsbybodeYllmq aftercare (2 sources)Surgical follow-up; Translations: [Encounter for removal of sutures] 10-12-6047DywimxadRwwuw and ill-defined cerebrovascular disease (1 source)Cerebrovascular disease, unspecified; Translations: [CEREBROVASCULAR DISEASE UNSPECIFIED]Onset: 59-76-7480KfofubnAvntf and ill-defined heart disease (1 source)Other ill-defined heart diseases; Translations: [OTHER ILL-DEFINED HEART DISEASES]Onset: 60-91-3685LegohlnPfpbb and ill-defined heart disease (20 sources)Cardiomegaly; Translations: [Cardiomegaly]Onset: 07-21-2017 95-69-4534GherzwkTabby and ill-defined heart disease (20 sources)Left ventricular hypertrophy; Translations: [Cardiomegaly]Onset: 403689-09-2693SobxnfkCttxm connective tissue disease (7 sources)Recurrent falls ; Translations: [Repeated falls]03-79-9431Kqkgxlox Other diseases of kidney and ureters (20 sources)Secondary hyperparathyroidism; Translations: [Secondary hyperparathyroidism of renal origin]Onset: 007760-04-6236AapcvxvJensy diseases of kidney and ureters (4 sources)Secondary hyperparathyroidism of renal origin; Translations: [Secondary hyperparathyroidism (of renal origin)]Onset: 889845-14-4453 ChronicOther diseases of kidney and ureters (1 source)Renal impairment; Translations: [Kidney insufficiency]EpisodicOther eye disorders (20 sources)Bilateral vitreous degeneration of eyes; Translations: [Vitreous degeneration, bilateral]Onset: 129471-36-0398OfkwssvOwaev eye disorders (7 sources)Vitreous degeneration, bilateralChronicOther eye disorders (2 sources)Vitreous degenerationChronicOther hereditary and degenerative nervous system conditions (20 sources)Sympathotonic orthostatic hypotension; Translations: [Multi-system degeneration of the autonomic nervous system]Onset: hronic Other inflammatory condition of skin (2 sources)Seborrheic dermatitis; Translations: [Other seborrheic dermatitis] 95-14-9348WkxzisxxRkucp inflammatory condition of skin (7 sources)Itching of skin; Translations: [Pruritus, unspecified]Onset: 511437-60-1801XnoeoitfRovno lower respiratory disease (3 sources)Dyspnea; Translations: [Shortness of breath]27-02-4841BjiamktaJnvnz nervous system disorders (20 sources)Disorder of brain; Translations: [Encephalopathy, unspecified]Onset: 948593-22-9800KwieopwUpqsb nervous system disorders (2 sources)Chronic pain; Translations: [Other chronic pain]ChronicOther nervous system disorders (1 source)Other chronic painOnset: 06-22-2021 Resolved: 19-81-1360WtirkulAtftz nervous system disorders (15 sources)Aphasia; Translations: [Aphasia]Onset: 149068-90-3895Qshfjnl Other nervous system disorders (20 sources)Encephalomalacia; Translations: [Other specified disorders of brain] Onset: 397703-64-0313ZooycxmLkscn nervous system disorders (1 source)Postoperative pain ; Translations: [Post-op pain]EpisodicOther nutritional; endocrine; and metabolic disorders (1 source)Obesity, unspecified; Translations: [OBESITY UNSPECIFIED]Onset: 13-60-6588WahdotwUgovy nutritional; endocrine; and metabolic disorders (1 source)Body mass index (BMI) 32.0-32.9, adult; Translations: [BODY MASS INDEX BMI 32.0-32.9 ADULT]Onset: 73-65-7295KtdenzzUsnud nutritional; endocrine; and metabolic disorders (20 sources)Hypomagnesemia; Translations: [Hypomagnesemia]Onset: 12-19-2018 90-38-4146KjmkfbpGcfwh nutritional; endocrine; and metabolic disorders (1 source)Hypermagnesemia; Translations: [Hypermagnesemia]61-72-5831CbuwyktCwqau nutritional; endocrine; and metabolic disorders (1 source)Hypermagnesemia; Translations: [Hypermagnesemia]Onset: 11-15-2024 ChronicOther skin disorders (2 sources)Lentiginosis; Translations: [Other melanin hyperpigmentation] 98-23-2312RgtlotpdVzwqu skin disorders (2 sources)Seborrheic keratosis; Translations: [Other seborrheic keratosis] 95-38-3526DodjtxuzZkila upper respiratory disease (1 source)Other seasonal allergic rhinitis; Translations: [OTHER SEASONAL ALLERGIC RHINITIS]Onset: 93-26-3184YxzqmacZhskw upper respiratory disease (20 sources)Allergic rhinitis; Translations: [Allergic rhinitis, unspecified] Onset: 790329-56-3991HzxcoqeSehggitzze and visceral atherosclerosis (20 sources)Atherosclerosis of renal artery; Translations: [Atherosclerosis of renal artery]Onset: 166647-35-5571GvpbbyaHdufwnsyq (except that caused by tuberculosis or sexually transmitted disease) (1 source)Pneumonia, unspecified organismEpisodicPulmonary heart disease (20 sources)Chronic cor pulmonale; Translations: [Cor pulmonale (chronic)]Onset: 676365-76-5322GzwmojbDnslnnox codes; unclassified (20 sources)Idiopathic sleep related non-obstructive alveolar hypoventilation; Translations: [Idiopathic sleep related nonobstructive alveolar hypoventilation] Onset: 189362-25-8611SbfjyujHczsqahp codes; unclassified (20 sources)Hypoxia; Translations: [Idiopathic sleep related nonobstructive alveolar hypoventilation]Onset: 939193-20-4258NeedkfqGfoqypid codes; unclassified (2 sources)Disorientated; Translations: [Disorientation, unspecified]04-30-2024 EpisodicResidual codes; unclassified (4 sources)Edema; Translations: [Edema, unspecified]85-34-4035UpsmulthGnwcdmsf codes; unclassified (2 sources)Body mass index 20-24 - normal; Translations: [Body mass index (BMI) 23.0-23.9, adult]06-21-5835YixselmpYegdbhu detachments; defects; vascular occlusion; and retinopathy (20 sources)Nonexudative age-related macular degeneration; Translations: [Nonexudative age-related macular degeneration, bilateral, early dry stage] Onset: 08-25-2017 Resolved: 249666-07-2740QzttpqvNnkde and face fractures (2 sources)Closed fracture of nasal bones; Translations: [Fracture of nasal bones, subsequent encounter for fracture with routine healing]15-65-7592Heecgaye Substance-related disorders (3 sources)Continuous opioid dependence; Translations: [Opioid use, unspecified, uncomplicated]Onset: 06-22-2021 Resolved: 26-12-4902SuufoejbGmuryja disorders (20 sources)Hypothyroidism, unspecified; Translations: [Acquired hypothyroidism] Onset: 598193-91-7849AmucuyiKclvmcycxztd (2 sources)Patient encounter statusUnclassified (4 sources)Drug therapy finding; Translations: [Anticoagulated]07-10-2019 Unclassified (2 sources)Chronic atrial fibrillation, unspecified; Translations: [CHRONIC ATRIAL FIBRILLATION UNSPEC]Onset: 29-62-5436Gumnxnbnsdsp (1 source)CONTACT W/AND (SUSP) EXPOS COVID-19; Translations: [CONTACT W/AND (SUSP) EXPOS COVID-19]Onset: 19-98-0263Iurzerj tract infections (6 sources)Urinary tract infection, site not specified; Translations: [Acute cystitis]Onset: 475577-42-8465TrjwcefiRiudg infection (1 source)COVID-19; Translations: [COVID-19]Onset: 01-04-2022 Past or Other Problems Problem ClassificationProblemDateDocumented DateEpisodic/ChronicAcute and unspecified renal failure (20 sources)Acute renal failure syndrome; Translations: [Acute kidney failure, unspecified]Onset: 10-25-2022 Resolved: 751474-78-4420XnrsodozKlepdqadi infection; unspecified site (1 source)Unspecified Escherichia coli [E. coli] as the cause of diseases classified elsewhere; Translations:[UNS E COLI CAUSE DX CLASS ELSEWHERE]Onset: 17-88-4350OhfaahseHfngfdnbjx associated with dizziness or vertigo (4 sources)Dizziness and giddiness; Translations: [DIZZINESS AND GIDDINESS] Onset: 21-95-5692HqolunezHtrjnfqy atherosclerosis and other heart disease (1 source)Presence of aortocoronary bypass graft; Translations: [PRESENCE AORTOCORONARY BYPASS GRAFT]Onset: 38-89-9910RnxrvrfxOpcsnrltpi and other anemia (20 sources)Chronic anemia; Translations: [Anemia, unspecified]Onset: 10-25-2022 99-30-6113PgdfzmaeN Codes: Adverse effects of medical drugs (1 source)Adverse effect of mineralocorticoids and their antagonists, initial encounter; Translations: [ADVRSEFF MINERALOCORTIC ANTAG INIT]Onset: 08-17-2021 EpisodicE Codes: Fall (20 sources)Fall; Translations: [Unspecified fall, initial encounter]Onset: 08-01-2019 Resolved: 734476-44-7227QmgarolaQhpvsvaz; convulsions (10 sources)Seizure; Translations: [Unspecified convulsions]Onset: 07-07-2019 28-59-5036AoaewokyMdnev and electrolyte disorders (20 sources)Hyperkalemia; Translations: [Hypokalemia]Onset: 77-87-9547Sjsmlztr Genitourinary symptoms and ill-defined conditions (20 sources)Microalbuminuria; Translations: [Proteinuria, unspecified]Onset: 087627-61-0628DrjdjssxRikqu valve disorders (20 sources)Systolic murmur; Translations: [Cardiac murmur, unspecified]Onset: 03-03-9613PxmrihbrQalbpok and fatigue (20 sources)Weakness; Translations: [Asthenia]Onset: 03-05-2023 Resolved: 03-55-2375JxbyylmiQxbg disorders (20 sources)Mood disordersOnset: 06-07-2023 Resolved: Other aftercare (20 sources)Drug therapy finding; Translations: [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]Onset: 526016-47-3786JkqhsvcvBcotn aftercare (1 source)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; Translations: [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 OF 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]Onset: 18-67-3836CaomeoxlJidtl aftercare (1 source)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/antiplatelets; Translations: [TUTORING ASSISTANT ANTITHROMBOT/ANTIPLATLETS]Onset: 82-97-2805Xdxmnagg Other aftercare (20 sources)Polypharmacy ; Translations: [Other custodial (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]Onset: 338756-70-0442VflqaftnUxwmn bone disease and musculoskeletal deformities (20 sources)Disorder of bone; Translations: [Other specified disorders of bone density and structure, right thigh]Onset: 880131-31-0936ItzllqjdPffvy circulatory disease (1 source)Carotid bruitEpisodicOther circulatory disease (1 source)Personal history of transient ischemic attack (TIA), and cerebral infarction without residual deficits; Translations: [PERS HX TIA AND CI NO RESID DEFICIT]Onset: 36-69-6700WekuvuomKzbpf circulatory disease (1 source)Other hypotension; Translations: [OTHER HYPOTENSION]Onset: 08-17-2021 EpisodicOther circulatory disease (20 sources)History of cerebrovascular accident; Translations: [Personal history of transient ischemic attack (TIA), and cerebral infarction without residual deficits]Onset: 415366-92-1242XnrtdvwmQtsua circulatory disease (20 sources)Vascular disorder; Translations: [Other disorder of circulatory system]Onset: 891321-97-7010KoooysrpSfccl gastrointestinal disorders (20 sources)Slow transit constipation; Translations: [Slow transit constipation] Onset: 274234-29-9080YzgzgvhoFxrgy hematologic conditions (20 sources)Abnormality of albumin; Translations: [Other nonspecific findings on examination of blood]Onset: 10-25-2022 Resolved: 228930-87-8433PxqkhpsoPvdby injuries and conditions due to external causes (1 source)History of falling; Translations: [HISTORY OF FALLING]Onset: 20-50-2778QxrwbvhkHusfq injuries and conditions due to external causes (20 sources)History of fall; Translations: [History of falling]Onset: 10-20-2022 58-82-4722LgzeoywqTnxlz nervous system disorders (1 source)Anesthesia of skin; Translations: [ANESTHESIA OF SKIN]Onset: 09-32-0306NrcoqeggLxxlk nervous system disorders (20 sources)Ataxia; Translations: [Ataxia, unspecified]Onset: 10-20-2022 34-78-4252ZmbcobsdVrkko nervous system disorders (20 sources)Cognitive disorder; Translations: [Other symptoms and signs involving cognitive functions and awareness]Onset: 540304-84-1803Ewptmhni Other non-epithelial cancer of skin (20 sources)History of malignant basal cell neoplasm of skin; Translations: [Personal history of other malignant neoplasm of skin]Onset: 11-03-2020 36-34-5473NggrossxUmcqy nutritional; endocrine; and metabolic disorders (20 sources)Body mass index 25-29 - overweight; Translations: [Overweight]Onset: 846298-58-9412LgvgraexIcdbcoxd codes; unclassified (20 sources)Restlessness and agitation; Translations: [Restlessness and agitation]Onset: 03-07-2024 Resolved: 966406-33-0598OmegrxkTzxtdpjp codes; unclassified (3 sources)Altered mental status, unspecified; Translations: [ALTERED MENTAL STATUS UNSPECIFIED]Onset: 88-94-6609AwwglhejQqkixlpm codes; unclassified (20 sources)Persistent insomnia; Translations: [Insomnia, unspecified]Onset: 939950-55-0880QbzvlwktSutqqzxm codes; unclassified (1 source)Sleep disorder; Translations: [Sleep disorder, unspecified]Onset: 206703-83-5799WerjhxorHyfkhoka codes; unclassified (20 sources)Menopause present; Translations: [Asymptomatic menopausal state] Onset: 12-07-2021 Resolved: 051367-22-2568SpzzruyrQbuztdjjxtq failure; insufficiency; arrest (adult) (20 sources)Acute respiratory failure; Translations: [Acute postprocedural respiratory failure]Onset: 08-02-2019 Resolved: 159783-67-8483QqbouikyJwzjfylznmr; intervertebral disc disorders; other back problems (20 sources)Spinal stenosis in cervical region; Translations: [Spinal stenosis, cervical region]Onset: 08-02-2019 Resolved: 279484-09-2148KfjpkxxmHqrelfi disorders (20 sources)Sick-euthyroid syndrome; Translations: [Sick-euthyroid syndrome] Onset: 923303-17-2444LalbdfefDexwmvmdoera (2 sources)Other low back pain; Translations: [Other low back pain]Unclassified (1 source)Other low back pain M54.59Onset: 06-22-2021 Resolved: 56-37-3495Tibdbngysnah (5 sources)Onset: 227758-35-0872Fhmfwctiwcyr (1 source)diabetic eye exam (chief complaint)Onset: 51-10-9825Qtrkpphszpqs (2 sources)NPDR (chief complaint)Onset: 06-23-2022 Resolved: 20-37-7904Aggxfytbcjlc (1 source)NPDR (chief complaint) stable vision (chief complaint)Onset: 71-56-2703Eiwlasbmhmle (1 source)Diabetic retinopathy (chief complaint) blurry vision (chief complaint) Onset: 06-71-9342Rmtpobvnxgkq (1 source)Diabetic retinopathy (chief complaint) stable vision (chief complaint) Onset: 66-78-1697Bugrjfqsyluq (1 source)diabetic retinopathy (chief complaint) reports no visual changes (chief complaint)Onset: 68-02-4064Ixvtybxvhzdi (1 source)no noticeable change in vision (chief complaint) diabetic retinopathy (chief complaint)Onset: 50-98-9827Kefvijbjydtt (1 source)blurry vision (chief complaint) 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) blood pressure (chief complaint)Onset: 42-02-9446Iwewkrlgbrjv (1 source)macular cyst (chief complaint) decreased in vision (chief complaint) Vitals (chief complaint)Onset: 78-68-4148Aeoaz infection (20 sources)Postherpetic neuralgia; Translations: [Other postherpetic nervous system involvement]Onset: 10-29-2019 Resolved: 33-99-7958Ftoismne Results Test NameValueInterpretationReference RangeFacilityTBH URINE T PROTEIN CREAT RATIOon 58-83-8807FEAUWBNVJJ URINE FFEGOZ18.30 mg/dL20.00 - 300.00 mg/dLNOMS HealthcareInterpretation and review of laboratory resultsAbnormalNOMS Healthcare Protein (U) [Mass/Vol]24.0 mg/dLHighNINF - 11.9 mg/dLNOIN HealthcarePROTEIN CREATININE RATIO URINE0.54NOMS HealthcareCLINISYNCNOMS HealthcareLaboratory - Chemistry and Chemistry - challengeOrdered By: Maryjo Morrison on 03-11-2025 Bilirubin Ql (U)NegativeFisher-Titus Medical CenterGlucose (U) [Mass/Vol] 100 mg/dLFisher-Titus Medical CenterKetones Ql (U)NegativeFisher-Titus Medical CenterpH (U)6.0 [pH][facility]eterans Health Administrationpecific gravity (U) [Rel density]1.025[facility] CenterLaboratory - Specimen informationOrdered By: Maryjo Morrison on 80-20-0493Rvdkxmcxoz (U) clearFisher-Titus Medical CenterColor (U)yellowFisher-Titus Medical CenterLaboratory - UrinalysisOrdered By: Maryjo Morrison on 03-11-2025 Leukocyte esterase Test strip Ql (U)NegativeFisher-Titus Medical Center Nitrite Ql (U)NegativeFisher-Titus Medical CenterProtein Ql (U)Negative [facility] Medical CenterNo Panel InformationOrdered By: Maryjo Morrison on 46-22-1350Jygyl Occult BloodmoderateFisher-Titus Medical CenterUrine Urobilinogen0.2EU/dLFisher-Titus Medical CenterUrine Cultureon 94-23-4225Qlpbsccp identified Cx Nom (U)<9,000 colonies/ml mixed bacterial skin contaminants 2 Days PERFORMED BY: [facility] [address] [place] [address] PATHOLOGIST IT SYSTEMS ANALYST AMADOR FORD M.D.NormalThe Formerly Park Ridge Health Physician GroupComment on above: Performed By: #### PTH, CLAUDY, RENAL, FE and TIBC, CBCNO, TOCY53WP, MG, WMRI50WMH, URIC #### [facility] [address] #### KAPPA, SHORTY SERUM, SPE W INTERPRET #### [facility] ,COMPREHENSIVE METABOLIC PANELon 17-65-6230Ipblwpu [Mass/Vol]4.1 g/dLNormal 3.6-5.1Quest DiagnosticsComment on above:Performed By: #### 7600, 496, 32071 #### [facility] of [address], [address] [place] [address] Coil Assembler: Stephan Kline MDAlbumin/Globulin [Mass ratio]1.3 {ratio}Normal 1.0-2.5Quest DiagnosticsComment on above:Performed By: #### 7600, 496, 79427 #### [facility] [place] [address] Coil Assembler: Stephan Kline MDALP [Catalytic activity/Vol]137 U/LNormal 37-153Quest DiagnosticsComment on above:Performed By: #### 7600, 496, 48851 #### [facility] [place] [address] Coil Assembler: Stephan Kline MDALT [Catalytic activity/Vol]9 U/LNormal6-29 Quest DiagnosticsComment on above:Performed By: #### 7600, 496, 22243 #### [facility] of [place] [address] Coil Assembler: Stephan Kline MDAST [Catalytic activity/Vol]12 U/YVxtqjm87-58 Quest DiagnosticsComment on above:Performed By: #### 7600, 496, 83106 #### [facility] of [place] [address] Coil Assembler: Stephan Kline MDBilirubin [Mass/Vol]0.5 mg/dLNormal0.2-1.2 Quest DiagnosticsComment on above:Performed By: #### 7600, 496, 32456 #### [facility] of [place] [address] Coil Assembler: Stephan PEÑAalcium [Mass/Vol]9.6 mg/dLNormal8.6-10.4Quest DiagnosticsComment on above:Performed By: #### 7600, 496, 53809 #### [facility] of [place] [address] Coil Assembler: Stephan Kline MDChloride [Moles/Vol]109 mmol/PYzrmrf04-547 Quest DiagnosticsComment on above:Performed By: #### 7600, 496, 99230 #### [facility] of [place] [address] Coil Assembler: Stephan Kline MDCO2 [Moles/Vol]20 mmol/OZoziyj57-91Lidgy DiagnosticsComment on above:Performed By: #### 7600, 496, 65817 #### [facility] of [place] [address] Coil Assembler: Stephan PEÑAreatinine [Mass/Vol]1.61 mg/dLHigh0.60-1.00 Quest DiagnosticsComment on above:Performed By: #### 7600, 496, 20406 #### [facility] of [place] [address] Coil Assembler: Stephan Kline MDGFR/1.73 sq M.predicted among non-blacks MDRD (S/P/Bld) [Vol rate/Area]33 mL/min/{1.73_m2}Low> OR = 60Quest DiagnosticsComment on above:Performed By: #### 7600, 496, 98476 #### [facility] of [place] [address] Coil Assembler: Stephan Kline MDGlobulin (S) [Mass/Vol]3.1 g/dLNormal1.9-3.7 Quest DiagnosticsComment on above:Performed By: #### 7600, 496, 43471 #### [facility] [place] [address] Coil Assembler: Stephan Kline MDGlucose [Mass/Vol]185 mg/fXSimp63-61Hgwbs DiagnosticsComment on above:Result Comment: Fasting reference interval For someone without known diabetes, a glucose value >125 mg/dL indicates that they may have diabetes and this should be confirmed with a follow-up test.Performed By: #### 7600, 496, 09069 #### [facility] [place] [address] Coil Assembler: Stephan Kline MDPotassium [Moles/Vol]4.2 mmol/LNormal3.5-5.3 Quest DiagnosticsComment on above:Performed By: #### 7600, 496, 04750 #### [facility] [place] [address] Coil Assembler: Stephan Kline MDProtein [Mass/Vol]7.2 g/dLNormal6.1-8.1Quest DiagnosticsComment on above:Performed By: #### 7600, 496, 44177 #### [facility] [place] [address] Coil Assembler: Stephan Kline MDSodium [Moles/Vol]142 mmol/PKdycwp269-008Aklpk DiagnosticsComment on above:Performed By: #### 7600, 496, 43124 #### [facility] [place] [address] Coil Assembler: Stephan Kline MDUrea nitrogen [Mass/Vol]38 mg/dLHigh7-25Quest DiagnosticsComment on above:Performed By: #### 7600, 496, 93615 #### [facility] [place] [address] Coil Assembler: Stephan Kline MDUrea nitrogen/Creatinine [Mass ratio]24 mg/mg High6-22Quest DiagnosticsComment on above:Performed By: #### 7600, 496, 24500 #### [facility] [address], [address] [place] [address] Coil Assembler: Stephan Kline MDHEMOGLOBIN A1con 39-57-0906IeY1n (Bld) [Mass fraction]6.6 %High<5.7Quest DiagnosticsComment on above:Result [...] diabetes for children.Performed By: #### 7600, 496, 09508 #### [facility] [address], [address] [place] [address] Coil Assembler: Stephan Kline MDLIPID PANEL, STANDARDon 51-21-6693Ajppahgdgdz [Mass/Vol]244 mg/dLHigh<200Quest DiagnosticsComment on above:Order Comment: FASTING:YES FASTING: YESPerformed By: #### 7600, 496, 44211 #### [facility] [address], [address] [place] [address] Coil Assembler: Stephan Kline MDCholesterol in HDL [Mass/Vol]73 mg/dLNormal> OR = 50Quest DiagnosticsComment on above:Order Comment: FASTING:YES FASTING: YESPerformed By: #### 7600, 496, 84915 #### [facility] [place] [address] Coil Assembler: Stephan Kline MDCholesterol in LDL [Mass/Vol]149 mg/dLHigh [...] Luis Eduardo JONES et al. ANGELA. 2013;310(19): 4845-5161 ([email or web address]/[email or web address])Performed By: #### 7600, 496, 38791 #### [facility] [address], [address] [place] [address] Coil Assembler: Stephan Jessicasteroada.total/Cholesterol in HDL [Mass ratio]3.3 {ratio}Normal<5.0Quest DiagnosticsComment on above:Order Comment: FASTING:YES FASTING: YESPerformed By: #### 0380, 496, 78469 #### [facility] [address], [address] [place] [address] Coil Assembler: Stephan OSBORNE HDL BRVWDIZMLFG364 mg/dL (calc)High<130 Quest DiagnosticsComment on above:Order Comment: FASTING:YES FASTING: YESResult Comment: For patients with diabetes plus 1 major ASCVD risk factor, treating to a non-HDL-C goal of <100 mg/dL (LDL-C of <70 mg/dL) is considered a therapeutic option.Performed By: #### 4980, 496, 89696 #### [facility] [place] [address] Coil Assembler: Stephan Kline MDTriglyceride [Mass/Vol]105 mg/dLNormal<150 Quest DiagnosticsComment on above:Order Comment: FASTING:YES FASTING: YESPerformed By: #### 9330, 496, 54794 #### [facility] [place] [address] Coil Assembler: Stephan Kline [facility] BASIC METABOLIC PANELon 88-27-7780Utino gap [Moles/Vol]16.7 mmol/LNOMS HealthcareCalcium [Mass/Vol]9 mg/dL8.5 - 10.1 mg/dLNOMS HealthcareChloride [Moles/Vol]107 mmol/L98 - 107 mmol/LNOMS Healthcare CO2 [Moles/Vol]22.4 mmol/L21.0 - 32.0 mmol/LNOMS HealthcareCreatinine [Mass/Vol] 1.68 mg/dLHigh0.55 - 1.02 mg/dLNOMS HealthcareGFR/1.73 sq M.predicted CKD-EPI (S/P/Bld) [Vol rate/Area]36Low>=60 mL/min/1.73m 2NOMS HealthcareGlucose [Mass/Vol]158 mg/sBJrrf97 - 106 mg/dLNOIN HealthcareInterpretation and review of laboratory resultsAbnormalNOMS HealthcarePotassium [Moles/Vol]4.1 mmol/L3.5 - 5.1 mmol/LNOMS HealthcareSodium [Moles/Vol]142 mmol/L136 - 145 mmol/LNOMS HealthcareTBH EGFR-NON AF DJFKFCJE70Sck>=60 mL/min/1.73m 2NOMS HealthcareUrea nitrogen [Mass/Vol]37 mg/dLHigh7.0 - 18.0 mg/dLNOIN HealthcareUrea nitrogen/Creatinine [Mass ratio]22 mg/mgNOIN HealthcareALL PHOSPHOROUSon 90-71-7876Wrxbnmwwm [Mass/Vol]4 mg/dL2.6 - 4.7 mg/dLNOIN HealthcareNo Panel Informationon 01-88-2553PCSTMURZNPNEE HealthcareALL MAGNESIUMon 11-15-2024 Magnesium [Mass/Vol]2.2 mg/dL1.6 - 2.6 mg/dLNOIN HealthcareOriginal Ordering Provider: SHANNAN ALBRIGHTFAIRFA[facility] HealthcareMagnesiumon 11-15-2024 Magnesium [Mass/Vol]2.2 mg/dL1.6 - 2.6 mg/dLBon [facility] Hospitalgnesium [Mass/Vol]2.2 mg/dLNormal1.6-2.6Mhocking [facility] hospitaly [facility] Comment on above:Performed By: #### MG #### [facility] [address] [place] [address] Executive Officer: Abhi Simon [facility] – EDMONDardiac echo study ProcedureOrdered By: Christian Lilly on 92-21-3165Mv Root Index1.72 cm/m2Bon [employer] Work Phone: Aortic Root2.8 cmBon [employer] Work Phone: [phone] Aorta2.8 cmBon [employer] Work Phone: [phone] Aorta Index1.72 cm/m2Bon [employer] Work Phone: [phone] Area by Peak Velocity1.1 cm2Bon [employer] Work Phone: [phone] Area by VTI1.3 cm2Bon [employer] Work Phone: [phone] Mean Bykgnfgo07bjAmIwb [employer] Work Phone: [phone] Mean Velocity1.4 m/sBon [employer] Work Phone: [phone] Peak Mgunypqo92giXiJzn [employer] Work Phone: [phone] Peak Velocity2.2 m/sBon [employer] Work Phone: [phone] Velocity Ratio0.45Bon [employer] Work Phone: [phone] VTI56 cmBon [employer] Work Phone: [phone]/BSA Peak Velocity0.7 cm2/m2Bon [employer] Work Phone: [phone]/BSA VTI0.8 cm2/m2Bon [employer] Work Phone: [phone] surface area Derived from formula1.65 m2Bon [employer] Work Phone: [phone]/E' Dfcfays91.82Bon [employer] Work Phone: [phone]/E' Ratio (Averaged)45.09Bon [employer] Work Phone: [phone]/E' Ijttzc93.37Bon [employer] Work Phone: EF BP56 %55 - 100 %[employer] Phone: EF Vzfnrwqsv45 %[employer] Phone: Est. RA Xgbqzgpl4psOsAok [employer] Phone: Fractional Shortening 2D46 %28 - 44 %[employer] Phone: Interpretation and review of laboratory results AbnormalTsehootso[facility] ([facility]) [employer] Phone: HNFd3.9 cm0.6 - 0.9 cmTsehootsooi [facility] Center ([facility] [employer] Phone: [phone] Diameter3.8 cmTsehootsooi [facility] Center ([facility] [employer] Phone: LA Size Index2.33 cm/m2[facility] [employer] Phone: [phone] Volume A-L A4C72 iWCxkzxoht66 - 52 mLS[employer] Phone: [phone] Volume A-L F1Q013 uOUabhgyew09 - 52 mLS[employer] Phone: [phone] Volume A/L89 mLS[employer] Phone: LA Volume BP85 sMFunyzkwe26 - 52 mLS[employer] Phone: [phone] Volume Index A-L A2C44 mL/g7Dtpxwvcy23 - 34 mL/m2 [employer] Phone: LA Volume Index A-L A4C63 mL/b1Umxnbikt81 - 34 mL/m2 [employer] Phone: LA Volume Index A/L55 mL/m216 - 34 mL/m2[facility] [employer] Phone: LA Volume Index BP52 ml/m8Elcckhed66 - 34 ml/m2[employer] Phone: LA Volume Index MOD A2C44 ml/h7Rrvsrtuo71 - 34 ml/m2 [employer] Work Phone: [phone] Volume Index MOD A4C58 ml/d1Zzlxszin84 - 34 ml/m2 [employer] Work Phone: LA Volume MOD A2C71 zORfkqzgxy86 - 52 mLSIM [employer] Work Phone: LA Volume MOD A4C95 nDHbrrmdou88 - 52 mLS[employer] Work Phone: LA/AO Root Ratio1.36Bon [employer] Work Phone: [phone] E' Lateral Velocity5.61 cm/sBon [employer] Work Phone: [phone] E' Septal Velocity1.9 cm/sBon [employer] Work Phone: [phone] EDV X7J036 mLS[employer] Work Phone: [phone] EDV A4C84 [employer] Work Phone: [phone] EDV BP97 mL56 - 104 mLS[employer] Work Phone: [phone] EDV Index A2C66 mL/m2[employer] Work Phone: [phone] EDV Index A4C52 mL/m2[employer] Work Phone: [phone] EDV Index BP60 mL/m2[employer] Work Phone: [phone] Ejection Fraction A2C57 %[employer] Work Phone: [phone] Ejection Fraction A4C58 %[employer] Work Phone: [phone] ESV A2C47 mLS[employer] Work Phone: [phone] ESV A4C35 mLS[employer] Work Phone: [phone] ESV BP42 mL19 - 49 mLS[employer] Work Phone: LV ESV Index A2C29 mL/m2Bon [employer] Work Phone: [phone] ESV Index A4C21 mL/m2Bon [employer] Work Phone: [phone] ESV Index BP26 mL/m2Bon [employer] Work Phone: [phone] Mass 2D123 g67 - 162 gBon [employer] Work Phone: [phone] Mass 2D Index75.4 g/m243 - 95 g/m2Bon [employer] Work Phone: [phone] RWT Ratio0.49Bon [employer] Work Phone: [phone] cm3.9 - 5.3 cmBon [employer] Work Phone: [phone] Index2.52 cm/m2Bon [employer] Work Phone: [phone] cmBon [employer] Work Phone: [phone] Index1.35 cm/m2Bon [employer] Work Phone: [phone] Area2.5 cm2Bon [employer] Work Phone: [phone] Diameter1.8 cmBon [employer] Work Phone: [phone] Mean Vtxbnsni1hlMqAtm [employer] Work Phone: [phone] Peak Iqnkrrsr9tlAyFbj [employer] Work Phone: [phone] Peak Velocity1 m/sBon [employer] Work Phone: [phone] Stroke Volume Index47.1 mL/m2Bon [employer] Work Phone: [phone] SV76.8 mlBon [employer] Work Phone: [phone] VTI30.2 cmBon [employer] Work Phone: [phone]:AV VTI Index0.54Bon [employer] Work Phone: [phone] cmAbnormal0.6 - 0.9 cmBon [employer] Work Phone: MV A Velocity1.21 m/sBon [employer] Work Phone: [phone] Area by PHT2.3 cm2Bon [employer] Work Phone: [phone] Area by VTI1.2 cm2Bon [employer] Work Phone: [phone] E Velocity1.28 m/sBon [employer] Work Phone: [phone] E Wave Deceleration Vcwe448.6 msTsehootsooi [facility] ([facility] [employer] Work Phone: [phone] E/A1.06Bon [employer] Phone: MV Max Velocity1.7 m/sBon [employer] Work Phone: MV Mean Hxiouczt6znOlUqc [employer] Work Phone: MV Mean Velocity0.8 m/sBon [employer] Work Phone: MV Peak Ickmketj79yvKqDti [employer] Work Phone: MV PHT95 ms[employer] Work Phone: MV VTI63.6 cmTsehootsooi [facility] ([facility] [employer] Work Phone: MV:LVOT VTI Index2.11Bon [employer] Work Phone: PV Max Velocity0.9 m/sBon [employer] Work Phone: PV Peak Pflufsxd2znWwGqd [employer] Work Phone: RA Qvyhgg02 mlBon [employer] Work Phone: [phone] Volume Index A4C18 mL/m2Bon [employer] Work Phone: [phone] Basal Dimension3.5 cmBon [employer] Work Phone: RV Longitudinal Dimension6.8 cmBon [employer] Work Phone: RV Mid Dimension2.5 cmBon [employer] Work Phone: [phone] [employer] Work Phone: TAPSE1.5 cmAbnormal1.7 cmBon [employer] Work Phone: TR Max Velocity2.75 m/sBon [employer] Work Phone: TR Peak Tinzhuig37haMjBpm [employer] Work Phone: Bon [employer] Work Phone: Cardiac echo study Procedureon 66-50-9038Xrfg Ventricle: Normal left ventricular systolic function. EF [...] function. TAPSE is abnormal. 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 Normal RVSP. Aortic Valve Intuity [id number] mechanical valve that is well-seated with a [...] mmHG at a heart rate of 68 bpm.[facility] CV CPACSALL CBC WITH AUTO DIFFon 86-29-2152XWLBMOTHD ABSOLUTE AUTO0.1 NOMS HealthcareBasophils/100 WBC (Bld)0.9 %0.2 - 2.0 %[facility] Eosinophils/100 WBC (Bld)3.6 %0.9 - 7.0 %NOMS HealthcareErythrocyte distribution width (RBC) [Ratio]12 %11.0 - 15.0 %NOMS HealthcareHematocrit (Bld) [Volume fraction]33.2 %Low36.0 - 48.0 %[facility] HealthcareHemoglobin (Bld) [Mass/Vol]11.1 g/dLLow12.0 - 16.0 g/dLNOIN HealthcareIMMATURE GRANULOCYTES ABS AUTO0.02NOMS HealthcareImmature granulocytes/100 WBC (Bld)0.2 %0.0 - 0.5 %[facility] Interpretation and review of laboratory resultsAbnormalNOTenet St. Louis LYMPHOCYTES ABSOLUTE AUTO2.5NOTenet St. LouisLymphocytes/100 WBC (Bld)31.6 %20.5 - 60.0 %[facility] HealthcareH (RBC) [Entitic mass]29.9 pg26.7 - 34.0 pgNODeaconess Incarnate Word Health SystemHC (RBC) [Mass/Vol]33.4 g/dL29.9 - 35.2 g/dLSaint Joseph Health CenterMCV (RBC) [Entitic vol]89.5 fL81.0 - 99.0 fLSaint Joseph Health CenterMONOCYTES ABSOLUTE AUTO0.6NOMS HealthcareMonocytes/100 WBC (Bld)7 %1.7 - 12.0 %NOM HealthcareNEUTROPHILS ABSOLUTE AUTO4.6NOMS HealthcareNeutrophils/100 WBC (Bld)56.7 %43.0 - 75.0 %[facility] CenterPlatelet mean volume (Bld) [Entitic vol]8.7 fLLow9.5 - 13.5 fLSaint Joseph Health CenterTBH EO #0.3NOMS HealthcareTB PYJ695KNSW [facility] RBC3.71LowNOMS Children'S Hospital For RehabilitationTB WBC8.1NOMS HealthcareCLINISYNCNFAIRFAX COMMUNITY HOSPITAL – FAIRFAX HealthcareCardiac echo study Procedureon 75-38-4654Dgvjabocx Study observation (narrative)Vannesa [facility] 12-LEADon 89-95-8897[place] [address] Electrocardiograph Report Signed Patient: ELEANOR MCCLAIN MR#: [id number] : 1950 Acct:[id number] Age/Sex: 73 / F ADM Date: 11/06/24 Loc: CARD Attending Dr: ANSHUL IRIZARRY Ordering Physician: ANSHUL IRIZARRY Date of Service: 11/06/24 Procedure(s): ECG 12 lead Accession Number(s): [id number] cc: [facility] Test Date: 2024-11-06 Pat Name: ELEANOR MCCLAIN Department: Room: - Gender: Female 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 Signed By: 11/06/24 1522 11/06/24 1522 DD/ 1320 TD/TT: Cage Supervisor:TBHRadiology, Radiologist, MD - 11/06/2024 [place] [address] Electrocardiograph Report Signed Patient: ELEANOR MCCLAIN MR#: [id number] : 1950 Acct:[id number] Age/Sex: 73 / F ADM Date: 11/06/24 Loc: CARD Attending Dr: ANSHUL IRIZARRY Ordering Physician: ANSHUL IRIZARRY Date of Service: 11/06/24 Procedure(s): ECG 12 lead Accession Number(s): [id number] cc: [facility] Test Date: 2024-11-06 Pat Name: ELEANOR MCCLAIN Department: Room: - Gender: Female Visiting Nurse: : 1950 Requested By: ANSHUL IRIZARRY Order Number: [id number] Reading MD: IGOR RAY Measurements Intervals [place] Rate: 54 P: 80 MD: 204 QRS: 56 QRSD: 88 T: 64 QT: 433 QTc: 412 Interpretive Statements SINUS BRADYCARDIA Non specific ST changes Compared to ECG 05/02/2024 10:55:55 T-wave abnormality no longer present Electronically Signed On 11-06-2024 15:22:24 EDT by IGOR RAY Dictated By: Igor Ray M.D. Signed By: 11/06/24 1522 11/06/24 1522 DD/ 1320 TD/TT: Cage Supervisor: [facility] HOSPITALCarlos Eduardo [facility] For RehabilitationRadiology Study observation (narrative)[facility] 12-LEAD Ordered By: Radiologist Radiology on 79-73-2121SVHFSaint Joseph Health Center Work Phone: Erythrocyte distribution width Auto (RBC) [Ratio]on 93-20-1805Tabdynyeakc distribution width (RBC) [Ratio]Erythrocyte distribution width [Ratio] by Automated count11.0-15.0[facility] Estimated glomerular filtration rate (GFR) non- Americanon 10-08-2024 GFR/1.73 sq M.predicted among non-blacks MDRD (S/P/Bld) [Vol rate/Area]Estimated glomerular filtration rate (GFR) non- AmericanLow>=60 mL/min/1.73m [address] [place] [address] CBC WITH PLATELET NO DIFFERENTIALon 18-00-1156Pbfbaqekfxx distribution width (RBC) [Ratio]12.1 %11.0 - 15.0 %[facility] CenterHematocrit (Bld) [Volume fraction]37.2 %36.0 - 48.0 %[facility] Hemoglobin (Bld) [Mass/Vol]12.4 g/dL12.0 - 16.0 g/dLSaint Joseph Health Center Interpretation and review of laboratory resultsAbnormalSaint John's [facility] (RBC) [Entitic mass]29.7 pg26.7 - 34.0 pgThree Rivers HealthcareHC (RBC) [Mass/Vol]33.3 g/dL 29.9 - 35.2 g/dLThree Rivers HealthcareV (RBC) [Entitic vol]89 fL81.0 - 99.0 fLSaint Joseph Health CenterPlatelet mean volume (Bld) [Entitic vol]8.9 fLLow9.5 - 13.[address] WWY939OEHXMercy Hospital Washington RBC4.18LowMercy Hospital St. John's WBC7.1NOMS HealthcareCLINISYNCNFAIRFAX COMMUNITY HOSPITAL – FAIRFAX HealthcareHematocrit Auto (Bld) [Volume fraction]on 85-99-3108Bfrqrboxja (Bld) [Volume fraction]Hematocrit [Volume Fraction] of Blood by Automated count36.0-48.0[facility] Medical CenterHemoglobin [Mass/volume] in Bloodon 46-74-7987Xustqjbvjx (Bld) [Mass/Vol]Hemoglobin [Mass/volume] in Blood12.0-16.0[facility] Medical CenterIron binding capacity [Mass/volume] in Serum or Plasmaon 00-59-2434Prbg binding capacity [Mass/Vol]Iron binding capacity [Mass/volume] in Serum or Jhtfat360.0-450.0 [facility] Medical CenterIron saturation [Mass Fraction] in Serum or Plasmaon 25-82-4720Sbog saturation [Mass fraction]Iron saturation [Mass Fraction] in Serum or PlasmaFisher-Titus Medical CenterLaboratory - Chemistry and Chemistry - challengeon 16-18-9921Imwvacg [Mass/Vol]3.7 g/dL 3.4-5.0[facility] Medical CenterCalcium [Mass/Vol]9.7 mg/dL8.5-10.1 [facility] Medical CenterChloride [Moles/Vol]103 mmol/K91-670GjtjmbalhFisher-Titus Medical CenterCO2 [Moles/Vol]29.8 mmol/L21.0-32.0[facility] Medical CenterCreatinine [Mass/Vol]1.92 mg/dLHigh0.55-1.02[facility] Medical CenterFerritin [Mass/Vol]84.0 ng/mL8.0-252.0[facility] Medical CenterGFR/1.73 sq M.predicted MDRD (S/P/Bld) [Vol rate/Area]31 mL/min/{1.73_m2} Low>=60 mL/min/1.73m 2FKettering Health – Soin Medical CenterGlucose [Mass/Vol]245 mg/xKCdvk73-989RwtkqwiyzFisher-Titus Medical CenterIron [Mass/Vol]67.0 ug/dL 50.0-170.0[facility] Medical CenterMagnesium [Mass/Vol]2.1 mg/dL1.8-2.4 [facility] Medical CenterPotassium [Moles/Vol]4.0 mmol/L3.5-5.1FKettering Health Greene Memorialodium [Moles/Vol]141 mmol/H342-377GfcqdhtlfFisher-Titus Medical CenterUrate [Mass/Vol]5.4 mg/dL2.6-6.0[facility] Urea nitrogen [Mass/Vol]27.0 mg/dLHigh7.0-18.0[facility] Urea nitrogen/Creatinine [Mass ratio]14.1 mg/mgFisher-Titus Medical Center Laboratory - Urinalysison 56-06-8871Ixgbwjt (U) [Mass/Vol]29.4 mg/dLHigh<=11.9 [facility] Medical CenterLeukocytes [#/volume] corrected for nucleated erythrocytes in Blood by Automated counon 81-48-0374FBR corrected for nucl RBC Auto (Bld) [#/Vol]Leukocytes [#/volume] corrected for nucleated erythrocytes in Blood by Automated coun4.0-11.0[facility] GeneralH Auto (RBC) [Entitic mass]on 75-86-7622WSZ (RBC) [Entitic mass]MCH [Entitic mass] by Automated count26.7-34.0[facility] Medical CenterMCHC Auto (RBC) [Mass/Vol]on 79-90-8575DPJC (RBC) [Mass/Vol]MCHC [Mass/volume] by Automated count29.9-35.2FKettering Health – Soin Medical CenterMCV Auto (RBC) [Entitic vol]on 22-36-0430IGD (RBC) [Entitic vol]MCV [Entitic volume] by Automated count 81.0-99.0[facility] Medical CenterNo Panel Informationon 18-58-4338Abgqn Random Uyvywhnanz34.74 mg/dL20.00-300.00[facility]25- Hydroxy Vitamin D Total86.3 ng/mLFisher-Titus Medical CenterComment on above:<20 ng/mL Vit D ggfkrntzu74-<30 ng/mL Vit D rvrouwndfbzq84-343 ng/mL Vit D sufficient>100 ng/mL Potential ToxicityParathyroid Hormone (Intact)56 pg/mL15-65 [facility] Medical CenterComment on above:Performed at: [address] [id number] Director: Jerrell Bautista PhD, Phone: [phone] Level4.3 mg/dL2.6-4.7FKettering Health – Soin Medical CenterPlatelet mean volume Auto (Bld) [Entitic vol]on 11-82-7919Odpixcsv mean volume (Bld) [Entitic vol]Platelet mean volume [Entitic volume] in Blood by Automated countLow9.5-13.5FKettering Health – Soin Medical CenterPlatelets Auto (Bld) [#/Vol]on 18-35-4990Dinhlhcaw (Bld) [#/Vol]Platelets [#/volume] in Blood by Automated tzzas864-614AtesulenlFisher-Titus Medical CenterRBC Auto (Bld) [#/Vol]on 25-41-4895YIS (Bld) [#/Vol]Erythrocytes [#/volume] in Blood by Automated count Low4.20-5.40Veterans Health Administrationerum or plasma anion gap determinationon 63-80-6736Rfwts gap [Moles/Vol]Serum or plasma anion gap determinationFisher-Titus Medical CenterUrine protein/creatinine ratioon 37-76-7595Llhxmen/Creatinine (U) [Ratio]Urine protein/creatinine ratioFisher-Titus Medical CenterALL BASIC METABOLIC PANELon 02-11-7766Tlykn gap [Moles/Vol]8.4 mmol/LNOMS HealthcareCalcium [Mass/Vol]9.1 mg/dL8.5 - 10.1 mg/dL NOMS HealthcareChloride [Moles/Vol]104 mmol/L98 - 107 mmol/LNOMS HealthcareCO2 [Moles/Vol]33.6 mmol/LHigh21.0 - 32.0 mmol/LNOMS HealthcareCreatinine [Mass/Vol] 1.75 mg/dLHigh0.55 - 1.02 mg/dLNOMS HealthcareGFR/1.73 sq M.predicted CKD-EPI (S/P/Bld) [Vol rate/Area]34Low>=60 mL/min/1.73m 2NOMS HealthcareGlucose [Mass/Vol]116 mg/vSYffk07 - 106 mg/dLNOMS HealthcareInterpretation and review of laboratory resultsAbnormalNOMS HealthcarePotassium [Moles/Vol]4 mmol/L3.5 - 5.1 mmol/LNOMS HealthcareSodium [Moles/Vol]142 mmol/L136 - 145 mmol/LNOMS HealthcareTBH EGFR-NON AF ALCKEHCJ29Zvf>=60 mL/min/1.73m 2NOMS HealthcareUrea nitrogen [Mass/Vol]23 mg/dLHigh7.0 - 18.0 mg/dLNOMS HealthcareUrea nitrogen/Creatinine [Mass ratio]13.1 mg/mgNOMS HealthcareCLINISYNCNOMS HealthcareHEMOGLOBIN A1con 96-71-8491UQSSJDTRZZ A1c6.4 % of total HgbHigh<5.7 Quest DiagnosticsComment [...] children.Performed By: #### 496 #### [facility] [address], [address] [place] [address] Coil Assembler: Stephan Kline [facility] CBC WITH AUTO DIFFon 80-04-6370GPXMPBVPZ ABSOLUTE AUTO0.1NOMS HealthcareBasophils/100 WBC (Bld)1.3 %0.2 - [...] HealthcareLymphocytes/100 WBC (Bld)31.2 %20.5 - 60.0 %NOMS [facility] HospitalH (RBC) [Entitic mass]30.4 pg26.7 - 34.0 pgNODeaconess Incarnate Word Health SystemHC (RBC) [Mass/Vol]33.3 g/dL29.9 - 35.2 g/dLNOIN HealthcareV (RBC) [Entitic vol]91.3 fL81.0 - 99.0 fLNOIN HealthcareMONOCYTES ABSOLUTE AUTO0.5NOMS HealthcareMonocytes/100 WBC (Bld)7.6 %1.7 - 12.0 %NOMS HealthcareNEUTROPHILS ABSOLUTE KHOX0HKTP HealthcareNeutrophils/100 WBC (Bld)55.2 %43.0 - 75.0 %NOMS HealthcarePlatelet mean volume (Bld) [Entitic vol]8.7 fLLow9.5 - 13.5 fLNOMS HealthcareTBH EO #0.3NOMS HealthcareTBH HUM886FEKN HealthcareTB RBC3.68LowNOMS HealthcareTB WBC7.2NOMS HealthcareCLINISYNCNFAIRFAX COMMUNITY HOSPITAL – FAIRFAX HealthcareECG 12-LEADon 06-23-8944[place], [place] [address] Electrocardiograph Report Signed Patient: ELEANOR MCCLAIN MR#: [id number] : 1950 Acct:[id number] Age/Sex: 73 / F ADM Date: 05/02/24 Loc: CARD Attending Dr: GeovannyStaff Physician Sheriff Ordering Physician: Beth Lancaster M.D. Date of Service: 05/02/24 Procedure(s): ECG 12 lead Accession Number(s): [id number] cc: [facility] Test Date: 2024-05-02 Pat Name: ELEANOR MCCLAIN Department: Room: - Gender: Female Visiting Nurse: : 1950 Requested By: [id number] Order Number: [id number] Reading MD: CEDRIC PENNY Measurements Intervals [place] Rate: 53 P: 78 MD: 180 QRS: 67 QRSD: 89 T: 78 QT: 455 QTc: 430 Interpretive Statements SINUS BRADYCARDIA NONSPECIFIC T-WAVE ABNORMALITY Electronically Signed On 05-02-2024 20:16:37 EST by CEDRIC PENNY Dictated By: Cedric Penny D.O. Signed By: 05/02/24201505/02/242015 DD/ 54 TD/TT: Cage Supervisor:RAIMUNDOadiologLorena joel, - 05/02/2024 [place] [address] Electrocardiograph Report Signed Patient: ELEANOR MCCLAIN MR#: [id number] : 1950 Acct:[id number] Age/Sex: 73 / F ADM Date: 05/02/24 Loc: CARD Attending Dr: Non-Staff Physician Sharita Ordering Physician: Beth Lancaster M.D. Date of Service: 05/02/24 Procedure(s): ECG 12 lead Accession Number(s): [id number] cc: [facility] Test Date: 2024-05-02 Pat Name: ELEANOR MCCLAIN Department: Room: - Gender: Female Visiting Nurse: : 1950 Requested By: [id number] Order Number: [id number] Reading MD: CEDRIC PENNY Measurements Intervals [place] Rate: 53 P: 78 MD: 180 QRS: 67 QRSD: 89 T: 78 QT: 455 QTc: 430 Interpretive Statements SINUS BRADYCARDIA NONSPECIFIC T-WAVE ABNORMALITY Electronically Signed On 05-02-2024 20:16:37 EST by CEDRIC PENNY Dictated By: Cedric Penny D.O. Signed By: 05/02/24201505/02/242015 DD/ 1055 TD/TT: Cage Supervisor: DYLAN HealthcareRadiology Study observation (narrative)NOMS HealthcareECG 12-LEAD Ordered By: Radiologist Radiology on 33-26-8441[facility] Work Phone: albumin [Mass/volume] in Serum or Plasma by Bromocresol green (BCG) dye binding methoOrdered By: Morgan Womack on 04-10-2024 Albumin BCG dye [Mass/Vol]Albumin [Mass/volume] in Serum or Plasma by Bromocresol green (BCG) dye binding metho3.5-5.7Firelands Regional Medical CenterAppearance of UrineOrdered By: Morgan Womack on 31-34-6565Kzqujnxsqf (U) Urine appearanceCleSamaritan North Health CenterBacteria [Presence] in Urine by AutomatedOrdered By: Morgan Womack on 48-82-4021Cqjnfdpv Auto Ql (U) Bacteria [Presence] in Urine by AutomatedHighNone SeenFisher-Titus Medical CenterBilirubin Test strip Ql (U)Ordered By: Morgan Womack on 49-04-4030Tdowwcwmo Ql (U)Bilirubin.total [Presence] in Urine by Test stripNegativeFisher-Titus Medical CenterCalcium [Mass/volume] in Serum or PlasmaOrdered By: Morgan Womack on 81-49-5868Auabvmm [Mass/Vol]Calcium [Mass/volume] in Serum or Plasma 8.6-10.3FKettering Health – Soin Medical CenterCarbon dioxide, total [Moles/volume] in Serum or PlasmaOrdered By: Morgan Womack on 33-54-2124CS7 [Moles/Vol]Carbon dioxide, total [Moles/volume] in Serum or Npvuhi83.0-31.0[facility]-Titus Medical CenterChloride [Moles/volume] in Serum or PlasmaOrdered By: Morgan Womack on 84-63-3563Pfksgvgu [Moles/Vol]Chloride [Moles/volume] in Serum or Plasma 98-107Fisher-Titus Medical CenterColor Auto (U)Ordered By: Morgan Womack on 74-16-6058Gtbyu (U)Color of Urine by AutoYellowFisher-Titus Medical Center Creatinine [Mass/volume] in Serum or PlasmaOrdered By: Morgan Womack on 04-10-2024 Creatinine [Mass/Vol]Creatinine [Mass/volume] in Serum or PlasmaHigh0.60-1.20 [facility] Medical CenterCreatinine [Mass/volume] in UrineOrdered By: Morgan Womack on [id number] (U) [Mass/Vol]Creatinine [Mass/volume] in UrineFisher-Titus Medical CenterComment on above:No reference range establishedDipstick and Microscopicon [id number] (U)ClearNormalClear The Formerly [facility] Physician GroupComment on above:Order Comment: Name Collection Type:: Clean-Voided MidstreamPerformed By: #### PTH, CLAUDY, RENAL, FE and TIBC, CBCNO, [id number], MG, [id number], URIC #### [address] #### KAPPA, SHORTY SERUM, SPE W INTERPRET #### [facility] ,Bacteria,Urine4+HighNone SeenSt. Joseph'S Hospital Physician GroupComment on above: Order Comment: Name Collection Type:: Clean-Voided MidstreamPerformed By: #### PTH, CLAUDY, RENAL, FE and TIBC, CBCNO, [id number], MG, [id number], URIC #### [address] #### KAPPA, SHORTY SERUM, SPE W INTERPRET #### [facility] ,Bilirubin,UrineNegativeNormalNegativeThe Formerly [facility] Physician GroupComment on above:Order Comment: Name Collection Type:: Clean-Voided MidstreamPerformed By: #### PTH, CLAUDY, RENAL, FE and TIBC, CBCNO, [id number], MG, [id number], URIC #### [address] #### KAPPA, SHORTY SERUM, SPE W INTERPRET #### [facility] ,Color (U)ColorlessNormalYellowSt. Joseph'S Hospital Physician GroupComment on above: Order Comment: Name Collection Type:: Clean-Voided MidstreamPerformed By: #### PTH, CLAUDY, RENAL, FE and TIBC, CBCNO, [id number], MG, [id number], URIC #### [address] #### KAPPA, SHORTY SERUM, SPE W INTERPRET #### [facility] ,Glucose Ql (U)NormalNormalNormalThe Formerly [facility] Physician GroupComment on above: Order Comment: Name Collection Type:: Clean-Voided MidstreamPerformed By: #### PTH, CLAUDY, RENAL, FE and TIBC, CBCNO, [id number], MG, [id number], URIC #### [address] #### KAPPA, SHORTY SERUM, SPE W INTERPRET #### [facility] ,Hyaline Casts,Urine0 [LPF]Normal0-8The Formerly [facility] Physician GroupComment on above:Order Comment: Name Collection Type:: Clean-Voided MidstreamPerformed By: #### PTH, CLAUDY, RENAL, FE and TIBC, CBCNO, [id number], MG, [id number], URIC #### [address] #### KAPPA, SHORTY SERUM, SPE W INTERPRET #### [facility] ,Ketones Ql (U)NegativeNormalNegativeThe Formerly [facility] Physician GroupComment on above:Order Comment: Name Collection Type:: Clean-Voided MidstreamPerformed By: #### PTH, CLAUDY, RENAL, FE and TIBC, CBCNO, [id number], MG, [id number], URIC #### [address] #### KAPPA, SHORTY SERUM, SPE W INTERPRET #### [facility] ,Leukocyte esterase Test strip Ql (U)3+HighNegativeThe [facility] Comment on above:Order Comment: Name Collection Type:: Clean-Voided Midstream Performed By: #### PTH, CLAUDY, RENAL, FE and TIBC, CBCNO, [id number], MG, [id number], URIC #### [address] #### KAPPA, SHORTY SERUM, SPE W INTERPRET #### [facility] ,Mucus,UrineRareNormalThe Formerly [facility] Physician GroupComment on above:Order Comment: Name Collection Type:: Clean-Voided MidstreamResult Comment: PERFORMED BY: [address] [place] [address] PATHOLOGIST IT SYSTEMS ANALYST CARON MUNOZ M.D.Performed By: #### PTH, CLAUDY, RENAL, FE and TIBC, CBCNO, [id number], MG, [id number], URIC #### [address] #### KAPPA, SHROTY SERUM, SPE W INTERPRET #### [facility] ,Nitrite,UrineNegativeNormalNegativeThe Formerly [facility] Physician GroupComment on above:Order Comment: Name Collection Type:: Clean-Voided MidstreamPerformed By: #### PTH, CLAUDY, RENAL, FE and TIBC, CBCNO, [id number], MG, [id number], URIC #### [address] #### KAPPA, SHORTY SERUM, SPE W INTERPRET #### [facility] ,Occult Blood,UrineNegativeNormalNegativeThe Formerly [facility] Physician GroupComment on above:Order Comment: Name Collection Type:: Clean-Voided MidstreamPerformed By: #### PTH, CLAUDY, RENAL, FE and TIBC, CBCNO, [id number], MG, [id number], URIC #### [address] #### KAPPA, SHORTY SERUM, SPE W INTERPRET #### [facility] ,pH (U)6.5 [pH]Normal5.0-9.0The Formerly [facility] Physician GroupComment on above:Order Comment: Name Collection Type:: Clean-Voided MidstreamPerformed By: #### PTH, CLAUDY, RENAL, FE and TIBC, CBCNO, [id number], MG, [id number], URIC #### [address] #### KAPPA, SHORTY SERUM, SPE W INTERPRET #### [facility] ,Protein,UrineNegativeNormalNegativeThe Formerly [facility] Physician GroupComment on above:Order Comment: Name Collection Type:: Clean-Voided MidstreamPerformed By: #### PTH, CLAUDY, RENAL, FE and TIBC, CBCNO, [id number], MG, [id number], URIC #### [address] #### KAPPA, SHORTY SERUM, SPE W INTERPRET #### [facility] ,RBC,Urine1 [HPF]Normal0-4The Formerly [facility] Physician GroupComment on above:Order Comment: Name Collection Type:: Clean-Voided MidstreamPerformed By: #### PTH, CLAUDY, RENAL, FE and TIBC, CBCNO, [id number], MG, [id number], URIC #### [address] #### KAPPA, SHORTY SERUM, SPE W INTERPRET #### [facility] ,Specificy [place],Urine1.327Ptsvpz2.001-1.030The [facility] Comment on above:Order Comment: Name Collection Type:: Clean-Voided Midstream Performed By: #### PTH, CLAUDY, RENAL, FE and TIBC, CBCNO, [id number], MG, [id number], URIC #### [address] #### KAPPA, SHORTY SERUM, SPE W INTERPRET #### [facility] ,Squamous Epithelial Cell,Urine1 [HPF]Normal0-2The [facility] Comment on above:Order Comment: Name Collection Type:: Clean-Voided Midstream Performed By: #### PTH, CLAUDY, RENAL, FE and TIBC, CBCNO, [id number], MG, [id number], URIC #### [address] #### KAPPA, SHORTY SERUM, SPE W INTERPRET #### [facility] ,Urobilinogen,UrineNormalNormalNormalThe Formerly [facility] Physician GroupComment on above:Order Comment: Name Collection Type:: Clean-Voided MidstreamPerformed By: #### PTH, CLAUDY, RENAL, FE and TIBC, CBCNO, [id number], MG, [id number], URIC #### [facility] [address] [place] [address] [place] #### KAPPA, SHORTY SERUM, SPE W INTERPRET #### [facility] ,WBC,Urine20 [HPF]High0-4The Formerly [facility] Physician GroupComment on above:Order Comment: Name Collection Type:: Clean-Voided MidstreamPerformed By: #### PTH, CLAUDY, RENAL, FE and TIBC, CBCNO, [id number], MG, [id number], URIC #### [facility] [address] [place] [address] [place] #### KAPPA, SHORTY SERUM, SPE W INTERPRET #### [facility] ,Epithelial cells.squamous [#/area] in Urine sediment by Automated countOrdered By: Morgan Womack on 54-63-1349Gmabhtrnlq cells.squamous Auto (Urine sed) [#/Area] Epithelial cells.squamous [#/area] in Urine sediment by Automated count0-2 [facility] Medical CenterErythrocyte distribution width Auto (RBC) [Ratio]Ordered By: Morgan Womack on 43-82-0099Potnyombvgp distribution width (RBC) [Ratio]Erythrocyte distribution width [Ratio] by Automated count11.9-15.3 [facility] CenterErythrocytes [#/area] in Urine sediment by Automated countOrdered By: Morgan Womack on 83-17-3731QLI Auto (Urine sed) [#/Area]Erythrocytes [#/area] in Urine sediment by Automated count0-4FKettering Health – Soin Medical CenterFerritinon 59-80-5351Ocodmomw [Mass/Vol]23.3 ng/mLNormal 11.0-306.8The Formerly [facility] Physician GroupComment on above:Performed By: #### PTH, CLAUDY, RENAL, FE and TIBC, CBCNO, [id number], MG, [id number], URIC #### [facility] [address] [place] [address] [place] #### KAPPA, SHORTY SERUM, SPE W INTERPRET #### [facility] ,Ferritin [Mass/volume] in Serum or PlasmaOrdered By: Morgan Womack on 04-10-2024 Ferritin [Mass/Vol]Ferritin [Mass/volume] in Serum or Znmmjp54.0-306.8[facility] Medical CenterFolate [Mass/volume] in Serum or PlasmaOrdered By: Morgan Womack on 59-33-8415Yiobwq [Mass/Vol]Folate [Mass/volume] in Serum or Plasma>5.9 [facility] Medical CenterComment on above:Folate reference range: >5.9 ng/mlThe WHO technical consultation on folate and vitamin k58czttorcpxlau has determined that folate concentrations lessthan 4 ng/ml are considered deficient. Free K+L LT Chains, Qn, Son 01-06-6312Qysl Nathalie Light Chains, S40.0 mg/LHigh 3.3-19.4The Formerly [facility] Physician GroupComment on above:Performed By: #### PTH, CLAUDY, RENAL, FE and TIBC, CBCNO, [id number], MG, [id number], URIC #### [facility] [address] [place] [address] #### KAPPA, SHORTY SERUM, SPE W INTERPRET #### [facility] ,Free Lambda Light Chains, S24.4 mg/LNormal5.7-26.3The [facility] Comment on above:Performed By: #### PTH, CLAUDY, RENAL, FE and TIBC, CBCNO, [id number], MG, [id number], URIC #### [facility] [address] [place] [address] [place] #### KAPPA, SHORTY SERUM, SPE W INTERPRET #### [facility] ,Nathalie/Lambda Ratio, S1.86Zaqaoy5.26-1.65The Formerly [facility] Physician GroupComment on above:Result Comment: Performed at: - [facility] [address] [id number] Executive Officer: Jerrell Bautista PhD, Phone: [phone] PERFORMED BY: [place] [address] PATHOLOGIST IT SYSTEMS ANALYST CARON MUNOZ M.D.Performed By: #### PTH, CLAUDY, RENAL, FE and TIBC, CBCNO, [id number], MG, [id number], URIC #### [facility] [address] [place] [address] [place] #### KAPPA, SHORTY SERUM, SPE W INTERPRET #### [facility] ,Glucose [Mass/volume] in Serum or PlasmaOrdered By: Morgan Womack on 04-10-2024 Glucose [Mass/Vol]Glucose [Mass/volume] in Serum or Zedkpg65-106VxperscnaFisher-Titus Medical CenterComment on above:ADA recommended reference rangeRandom Glucose Reference Range is dependent on time and content of last meal. Glucose of more than 200 mg/dL in a nonstressed, ambulatory subject supports the diagnosisof Diabetes Mellitus.Glucose [Mass/volume] in Urine by Test strip Ordered By: Morgan Womack on 55-47-8891Gklahgv Test strip (U) [Mass/Vol]Glucose [Mass/volume] in Urine by Test stripNormalFisher-Titus Medical Center Hematocrit Auto (Bld) [Volume fraction]Ordered By: Morgan Womack on 04-10-2024 Hematocrit (Bld) [Volume fraction]Hematocrit [Volume Fraction] of Blood by Automated mytdtNcy97.0-46.4FKettering Health – Soin Medical CenterHemoglobin Test strip Ql (U)Ordered By: Morgan Womack on 38-96-8307Cyxtsfdtzv Ql (U)Hemoglobin [Presence] in Urine by Test stripNegativeFisher-Titus Medical Center Hemoglobin [Mass/volume] in BloodOrdered By: Morgan Womack on 60-03-7849Dzksqvfhiz (Bld) [Mass/Vol]Hemoglobin [Mass/volume] in HytuqTzw18.8-15.4FKettering Health – Soin Medical CenterHemogram CBC Without Diffon 79-48-6291Umpsgoivfwm distribution width (RBC) [Ratio]12.7 %Hfohrc87.9-15.3The Formerly [facility] Physician GroupComment on above:Performed By: #### PTH, CLAUDY, RENAL, FE and TIBC, CBCNO, [id number], MG, [id number], URIC #### [facility] [address] [place] [address] [place] #### KAPPA, SHORTY SERUM, SPE W INTERPRET #### [facility] ,Hematocrit (Bld) [Volume fraction]31.9 %Low34.0-46.4The Formerly [facility] Physician GroupComment on above:Performed By: #### PTH, CLAUDY, RENAL, FE and TIBC, CBCNO, [id number], MG, VNRO22MRL, URIC #### [address] #### KAPPA, SHORTY SERUM, SPE W INTERPRET #### [facility] ,Hemoglobin (Bld) [Mass/Vol]10.9 g/dLLow11.8-15.4The [facility] Comment on above:Performed By: #### PTH, CLAUDY, RENAL, FE and TIBC, CBCNO, [id number], MG, QRPV91HLW, URIC #### [address] #### KAPPA, SHORTY SERUM, SPE W INTERPRET #### [facility] ,MCH (RBC) [Entitic mass]30.3 asKhpnuh02.7-34.3The [facility] Comment on above:Performed By: #### PTH, CLAUDY, RENAL, FE and TIBC, CBCNO, [id number], MG, QVJH32UGH, URIC #### [place] [address] [place] #### KAPPA, SHORTY SERUM, SPE W INTERPRET #### [facility] ,MCV (RBC) [Entitic vol]88.7 rFQzhpbu72-648Gic Former[facility] Physician GroupComment on above:Performed By: #### PTH, CLAUDY, RENAL, FE and TIBC, CBCNO, [id number], MG, LULF45DPH, URIC #### [place] [address] [place] #### KAPPA, SHORTY SERUM, SPE W INTERPRET #### [facility] ,Mean Corpuscular HGB Conc34.2 g/sXKggoes63.0-35.0The [facility] Comment on above:Performed By: #### PTH, CLAUDY, RENAL, FE and TIBC, CBCNO, [id number], MG, GCNZ43QYO, URIC #### [address] #### KAPPA, SHORTY SERUM, SPE W INTERPRET #### [facility] ,Platelet mean volume (Bld) [Entitic vol]7.6 fLNormal6.3-10.7The Formerly [facility] Physician GroupComment on above:Result Comment: PERFORMED BY: [place] [address] PATHOLOGIST IT SYSTEMS ANALYST CARON MUNOZ M.D.Performed By: #### PTH, CLAUDY, RENAL, FE and TIBC, CBCNO, [id number], MG, DOOL96ZDQ, URIC #### [address] #### KAPPA, SHORTY SERUM, SPE W INTERPRET #### [facility] ,Platelets (Bld) [#/Vol]252 10*3/oAKqgfyt236-589Ack [facility] Comment on above:Performed By: #### PTH, CLAUDY, RENAL, FE and TIBC, CBCNO, [id number], MG, UIAT15BOY, URIC #### [address] #### KAPPA, SHORTY SERUM, SPE W INTERPRET #### [facility] ,RBC (Bld) [#/Vol]3.60 10*6/uLNormal3.60-5.00The [facility] Comment on above:Performed By: #### PTH, CLAUDY, RENAL, FE and TIBC, CBCNO, [id number], MG, FNYP90GEO, URIC #### [address] #### KAPPA, SHORTY SERUM, SPE W INTERPRET #### [facility] ,WBC (Bld) [#/Vol]8.0 10*3/uLNormal3.8-11.6The Formerly [facility] Physician GroupComment on above:Performed By: #### PTH, CLAUDY, RENAL, FE and TIBC, CBCNO, [id number], MG, YRDP75XKS, URIC #### [address] #### KAPPA, SHORTY SERUM, SPE W INTERPRET #### [facility] ,Hyaline casts [#/area] in Urine sediment by Automated countOrdered By: Morgan Womack on 33-96-3658Reqvfao casts Auto (Urine sed) [#/Area]Hyaline casts [#/area] in Urine sediment by Automated count0-8[facility] Immunofixation, (SHORTY), Urineon 78-68-9720Fxhiptbjpvfwng, (SHORTY), UrineComment Normal.The Formerly [facility] Physician GroupComment on above:Result Comment: No monoclonality detected. Performed at: - [facility] [id number] Executive Officer: Jerrell Bautista PhD, Phone: [phone] PERFORMED BY: [place] [address] PATHOLOGIST IT SYSTEMS ANALYST CARON MUNOZ M.D.Performed By: #### PTH, CLAUDY, RENAL, FE and TIBC, CBCNO, [id number], MG, LARH47PDD, URIC #### [address] #### KAPPA, SHORTY SERUM, SPE W INTERPRET #### [facility] ,Immunofixation,Serumon 40-06-1273Annmoqqlfzgonn, SerumCommentNormal.The Formerly [facility] Physician GroupComment on above:Result Comment: No monoclonality detected.Performed By: #### PTH, CLAUDY, RENAL, FE and TIBC, CBCNO, [id number], MG, TZXR34AFR, URIC #### [place] [address] [place] #### KAPPA, SHORTY SERUM, SPE W INTERPRET #### [facility] ,Immunoglobulin A, Spqsn409 mg/fNJkwbbp34-019Htx [facility] Comment on above:Performed By: #### PTH, CLAUDY, RENAL, FE and TIBC, CBCNO, [id number], MG, JTRO76TZK, URIC #### [facility] [address] [place] [address] #### KAPPA, SHORTY SERUM, SPE W INTERPRET #### [facility] ,Immunoglobulin G989 mg/mJEwnoai767-2325Yxt [facility] HospitalComment on above:Performed By: #### PTH, CLAUDY, RENAL, FE and TIBC, CBCNO, [id number], MG, RKCO26YOA, URIC #### [facility] [address] [place] [address] #### KAPPA, SHORTY SERUM, SPE W INTERPRET #### [facility] ,Immunoglobulin M, Serum66 mg/gHXnkokv02-085Zes Former[facility] Physician GroupComment on above:Result Comment: Performed at: - [place] [id number] Executive Officer: Jerrell Bautista PhD, Phone: [phone] By: #### PTH, CLAUDY, RENAL, FE and TIBC, CBCNO, [id number], MG, PJIS75JFS, URIC #### [place] [address] [place] #### KAPPA, SHORTY SERUM, SPE W INTERPRET #### [facility] ,Iron [Mass/volume] in Serum or PlasmaOrdered By: Morgan Womack on 94-44-9257Jyas [Mass/Vol]Iron [Mass/volume] in Serum or Eowlro91-282NltsfqxicFisher-Titus Medical CenterIron and TIBC Profileon 04-10-2024% Iron Ysrojifetn94.2 %Zfc43-53Unr Former[facility] Physician GroupComment on above:Performed By: #### PTH, CLAUDY, RENAL, FE and TIBC, CBCNO, [id number], MG, PPYH99DEA, URIC #### [facility] [address] [place] [address] [place] #### KAPPA, SHORTY SERUM, SPE W INTERPRET #### [facility] ,Iron [Mass/Vol]61 ug/nSYtuuxa71-803Cno [facility] Physician GroupComment on above:Performed By: #### PTH, CLAUDY, RENAL, FE and TIBC, CBCNO, UVNO23RR, MG, WBQA77TBK, URIC #### [place] [address] [place] #### KAPPA, SHORTY SERUM, SPE W INTERPRET #### [facility] ,Total Iron Binding Evxiznsw648 ug/wDHlvswa496-476Cqj [facility] Comment on above:Performed By: #### PTH, CLAUDY, RENAL, FE and TIBC, CBCNO, [id number], MG, SEER83PDP, URIC #### [place] [address] [place] #### KAPPA, SHORTY SERUM, SPE W INTERPRET #### [facility] ,Transferrin [Mass/Vol]287 mg/oWSkhpzo203-013Kze [facility] Comment on above:Performed By: #### PTH, CLAUDY, RENAL, FE and TIBC, CBCNO, [id number], MG, [id number], URIC #### [place] [address] [place] #### KAPPA, SHORTY SERUM, SPE W INTERPRET #### [facility] ,Ketones Test strip Ql (U)Ordered By: Morgan Womack on 94-22-3338Uqyyhtu Ql (U) Ketones [Presence] in Urine by Test stripNegDayton Children's HospitalLeukocyte esterase [Presence] in Urine by Test stripOrdered By: Morgan Womack on 06-48-4323Wqmmpvaep esterase Test strip Ql (U)Leukocyte esterase [Presence] in Urine by Test stripHighNegDayton Children's Hospital Leukocytes [#/area] in Urine sediment by Automated countOrdered By: Morgan Womack on 44-01-8625RXC Auto (Urine sed) [#/Area]Leukocytes [#/area] in Urine sediment by Automated countHigh0-4FKettering Health – Soin Medical CenterLeukocytes [#/volume] corrected for nucleated erythrocytes in Blood by Automated counOrdered By: Morgan Womack on 87-49-2026NLI corrected for nucl RBC Auto (Bld) [#/Vol]Leukocytes [#/volume] corrected for nucleated erythrocytes in Blood by Automated coun 3.8-11.6FMetroHealth Parma Medical Center Auto (RBC) [Entitic mass]Ordered By: Morgan Womack on 04-05-1426XHB (RBC) [Entitic mass]MCH [Entitic mass] by Automated count24.7-34.3FHolzer Health SystemHC Auto (RBC) [Mass/Vol]Ordered By: Morgan Womack on 27-89-5975UFAQ (RBC) [Mass/Vol]MCHC [Mass/volume] by Automated count32.0-35.0[facility] GeneralV Auto (RBC) [Entitic vol]Ordered By: Morgan Womack on 96-91-5331JWA (RBC) [Entitic vol]MCV [Entitic volume] by Automated avzke59-087UnhbvkiawFisher-Titus Medical CenterMagnesiumon 74-77-4891Lsakntvyr [Mass/Vol]2.3 mg/dLNormal1.9-2.7The Formerly [facility] Physician GroupComment on above:Performed By: #### PTH, CLAUDY, RENAL, FE and TIBC, CBCNO, [id number], MG, GJNA98DRR, URIC #### [facility] [address] #### KAPPA, SHORTY SERUM, SPE W INTERPRET #### [facility] ,Magnesium [Mass/volume] in Serum or PlasmaOrdered By: Morgan Womack on 04-10-2024 Magnesium [Mass/Vol]Magnesium [Mass/volume] in Serum or Plasma1.9-2.7FKettering Health – Soin Medical CenterMucus [Presence] in Urine by AutomatedOrdered By: Morgan Womack on 98-22-8008Horev Auto Ql (U)Mucus [Presence] in Urine by Automated [facility] Medical CenterNitrite Test strip Ql (U)Ordered By: Morgan Womack on 84-16-2255Rtrkoud Ql (U)Nitrite [Presence] in Urine by Test strip NegativeFisher-Titus Medical CenterNo Panel InformationOrdered By: Morgan Womack on 97-17-5976Mtapqptpi GFR (CKD-EPI)36.116 mL/MinFisher-Titus Medical CenterPharmacy Creatinine Clearance (ChemN/AFKettering Health – Soin Medical CenterProtein Electrophoresis InterpretComment.[facility] Comment on above:The SPE pattern appears unremarkable. Evidence ofmonoclonal protein is not apparent.Performed at: [place] [id number] Director: Jerrell Bautista PhD, Phone: [phone] Protein Electrophoresis M-SpikeNot observed g/dLNot ObservedFisher-Titus Medical CenterProtein Electrophoresis NoteComment.[facility]-Titus Medical CenterComment on above:Protein electrophoresis scan will follow via computer,mail, or customer account administrator delivery.Parathyrin.intact [Mass/volume] in Serum or PlasmaOrdered By: Morgan Womack on 78-37-7380Ycumvkubex.intact [Mass/Vol] Parathyrin.intact [Mass/volume] in Serum or Zpeqdy51-50CdqaxuvmpFisher-Titus Medical CenterParathyroid Hormone Intacton 49-13-0932Igcrfltxfny Hormone Intact 50.5 pg/kQWnwcne91-35Pwk [facility] Physician GroupComment on above:Result Comment: PERFORMED BY: [place] [address] PATHOLOGIST IT SYSTEMS ANALYST CARON MUNOZ M.D.Performed By: #### PTH, CLAUDY, RENAL, FE and TIBC, CBCNO, [id number], MG, [id number], URIC #### [address] #### KAPPA, SHORTY SERUM, SPE W INTERPRET #### [facility] ,Phosphate [Mass/volume] in Serum or PlasmaOrdered By: Morgan Womack on 04-10-2024 Phosphate [Mass/Vol]Phosphate [Mass/volume] in Serum or Plasma2.5-4.5FKettering Health – Soin Medical CenterPlatelet mean volume Auto (Bld) [Entitic vol]Ordered By: Morgan Womack on 48-79-3773Ltujjisi mean volume (Bld) [Entitic vol]Platelet mean volume [Entitic volume] in Blood by Automated count6.3-10.7FKettering Health – Soin Medical CenterPlatelets Auto (Bld) [#/Vol]Ordered By: Morgan Womack on 04-10-2024 Platelets (Bld) [#/Vol]Platelets [#/volume] in Blood by Automated eocsy626-412 [facility] Medical CenterPotassium [Moles/volume] in Serum or Plasma Ordered By: Morgan Womack on 14-20-7757Ymieavzkz [Moles/Vol]Potassium [Moles/volume] in Serum or Plasma3.5-5.1FKettering Health – Soin Medical CenterProt Electrophoresis w/Interpon 74-76-9135Dvircrz [Mass/Vol]3.9 g/dLNormal2.9-4.4The [facility] Physician GroupComment on above:Performed By: #### PTH, CLAUDY, RENAL, FE and TIBC, CBCNO, [id number], MG, RCRO56SLO, URIC #### [facility] [address] [place] [address] [place] #### KAPPA, SHORTY SERUM, SPE W INTERPRET #### [facility] ,Albumin/Globulin [Mass ratio]1.3 {ratio}Normal0.7-1.7The [facility]ly [facility] Physician GroupComment on above:Performed By: #### PTH, CLAUDY, RENAL, FE and TIBC, CBCNO, [id number], MG, BVVH63YZQ, URIC #### [facility] [address] [place] [address] [place] #### KAPPA, SHORTY SERUM, SPE W INTERPRET #### [facility] ,Cntrp-0-Ukijppcu4.2 g/dLNormal0.0-0.4The [facility] Physician GroupComment on above:Performed By: #### PTH, CLAUDY, RENAL, FE and TIBC, CBCNO, [id number], MG, LXCY86JWQ, URIC #### [address] #### KAPPA, SHORTY SERUM, SPE W INTERPRET #### [facility] ,Oqtys-0-Dfkojrkc0.8 g/dLNormal0.4-1.0The [facility] Physician GroupComment on above:Performed By: #### PTH, CLAUDY, RENAL, FE and TIBC, CBCNO, [id number], MG, [id number], URIC #### [address] #### KAPPA, SHORTY SERUM, SPE W INTERPRET #### [facility] ,Beta Globulin1.0 g/dLNormal0.7-1.3The Formerly [facility] Physician GroupComment on above:Performed By: #### PTH, CLAUDY, RENAL, FE and TIBC, CBCNO, [id number], MG, [id number], URIC #### [address] #### KAPPA, SHORTY SERUM, SPE W INTERPRET #### [facility] ,Gamma Globulin1.0 g/dLNormal0.4-1.8The [facility] Physician GroupComment on above:Performed By: #### PTH, CLAUDY, RENAL, FE and TIBC, CBCNO, [id number], MG, LERL12HBV, URIC #### [place] [address] [place] #### KAPPA, SHORTY SERUM, SPE W INTERPRET #### [facility] ,Globulin (S) [Mass/Vol]2.9 g/dLNormal2.2-3.9The [facility] Comment on above:Performed By: #### PTH, CLAUDY, RENAL, FE and TIBC, CBCNO, [id number], MG, LGBH07STI, URIC #### [address] #### KAPPA, SHORTY SERUM, SPE W INTERPRET #### [facility] ,M-SpikeNot ObservedNormalNot ObservedThe Formerly [facility] Physician GroupComment on above:Performed By: #### PTH, CLAUDY, RENAL, FE and TIBC, CBCNO, [id number], MG, JARG01XYS, URIC #### [address] #### KAPPA, SHORTY SERUM, SPE W INTERPRET #### [facility] ,Protein [Mass/Vol]6.8 g/dLNormal6.0-8.5The [facility] Physician GroupComment on above:Performed By: #### PTH, CLAUDY, RENAL, FE and TIBC, CBCNO, [id number], MG, [id number], URIC #### [address] #### KAPPA, SHORTY SERUM, SPE W INTERPRET #### [facility] ,SPE-InterpretationCommentNormal.The [facility] Physician GroupComment on above: Result Comment: The SPE pattern appears unremarkable. Evidence of monoclonal protein is not apparent. Performed at: [facility] [id number] Executive Officer: Jerrell Bautista PhD, Phone: [phone] By: #### PTH, CLAUDY, RENAL, FE and TIBC, CBCNO, [id number], MG, MLCF88QKT, URIC #### [place] [address] [place] #### KAPPA, SHORTY SERUM, SPE W INTERPRET #### [facility] ,SPE-NoteCommentNormal.The [facility] Physician GroupComment on above:Result Comment: Protein electrophoresis scan will follow via computer, mail, or customer account administrator delivery.Performed By: #### PTH, CLAUDY, RENAL, FE and TIBC, CBCNO, RKHC31FM, MG, SYOB59PVL, URIC #### [place] [address] [place] #### KAPPA, SHORTY SERUM, SPE W INTERPRET #### [facility] ,Protein Creat Ratio Ur Randomon 41-87-1256Jxyssvghwn, Urine (Random)19.00 mg/dL NormalThe Formerly [facility] Physician GroupComment on above:Result Comment: No reference range establishedPerformed By: #### PTH, CLAUDY, RENAL, FE and TIBC, CBCNO, [id number], MG, [id number], URIC #### [address] #### KAPPA, SHORTY SERUM, SPE W INTERPRET #### [facility] ,Protein (U) [Mass/Vol]5 mg/dLNormal0-9The Formerly [facility] Physician GroupComment on above:Performed By: #### PTH, CLAUDY, RENAL, FE and TIBC, CBCNO, [id number], MG, [id number], URIC #### [address] #### KAPPA, SHORTY SERUM, SPE W INTERPRET #### [facility] ,Urine Protein/Creatinine Sbxoe370 mg/g{Cre}High0-200The Formerly [facility] Physician GroupComment on above:Result Comment: PERFORMED BY: [place] [address] PATHOLOGIST IT SYSTEMS ANALYST CARON MUNOZ M.D.Performed By: #### PTH, CLAUDY, RENAL, FE and TIBC, CBCNO, [id number], MG, [id number], URIC #### [address] #### KAPPA, SHORTY SERUM, SPE W INTERPRET #### [facility] ,Protein Test strip (U) [Mass/Vol]Ordered By: Morgan Womack on [id number] (U) [Mass/Vol]Protein [Mass/volume] in Urine by Test stripNegativeFisher-Titus Medical CenterProtein [Mass/volume] in UrineOrdered By: Morgan Womack on 06-94-4372Xharzrp (U) [Mass/Vol]Protein [Mass/volume] in Urine0-9Fisher-Titus Medical CenterRBC Auto (Bld) [#/Vol]Ordered By: Morgan Womack on 08-67-5292CXG (Bld) [#/Vol]Erythrocytes [#/volume] in Blood by Automated count 3.60-5.00Fisher-Titus Medical CenterRenal Function Panelon 04-10-2024 Albumin [Mass/Vol]4.1 g/dLNormal3.5-5.7The [facility] Physician GroupComment on above:Performed By: #### PTH, CLAUDY, RENAL, FE and TIBC, CBCNO, [id number], MG, [id number], URIC #### [facility] [address] [place] [address] [place] #### KAPPA, SHORTY SERUM, SPE W INTERPRET #### [facility] ,Anion gap [Moles/Vol]10.1 mmol/LNormal6.0-15.0The [facility] Comment on above:Performed By: #### PTH, CLAUDY, RENAL, FE and TIBC, CBCNO, [id number], MG, KOPD32CSY, URIC #### [facility] [address] [place] [address] [place] #### KAPPA, SHORTY SERUM, SPE W INTERPRET #### [facility] ,Calcium [Mass/Vol]9.6 mg/dLNormal8.6-10.3The [facility] Physician GroupComment on above:Performed By: #### PTH, CLAUDY, RENAL, FE and TIBC, CBCNO, [id number], MG, [id number], URIC #### [place] [address] [place] #### KAPPA, SHORTY SERUM, SPE W INTERPRET #### [facility] ,Chloride [Moles/Vol]104 mmol/CQjqvnc11-704Jyk [facility] Physician GroupComment on above:Performed By: #### PTH, CLAUDY, RENAL, FE and TIBC, CBCNO, [id number], MG, [id number], URIC #### [place] [address] [place] #### KAPPA, SHORTY SERUM, SPE W INTERPRET #### [facility] ,CO2 [Moles/Vol]30.6 mmol/PSxxclh71.0-31.0The [facility] Physician GroupComment on above:Performed By: #### PTH, CLAUDY, RENAL, FE and TIBC, CBCNO, [id number], MG, [id number], URIC #### [place] [address] [place] #### KAPPA, SHORTY SERUM, SPE W INTERPRET #### [facility] ,Creatinine [Mass/Vol]1.50 mg/dLHigh0.60-1.20The [facility] Comment on above:Performed By: #### PTH, CLAUDY, RENAL, FE and TIBC, CBCNO, [id number], MG, [id number], URIC #### [address] #### KAPPA, SHORTY SERUM, SPE W INTERPRET #### [facility] ,Estimated GFR36.116 mL/MinNormalThe [facility] Physician GroupComment on above: Performed By: #### PTH, CLAUDY, RENAL, FE and TIBC, CBCNO, [id number], MG, QBCW77TEA, URIC #### [address] #### KAPPA, SHORTY SERUM, SPE W INTERPRET #### [facility] ,Glucose [Mass/Vol]99 mg/pIAfjjdd86-265Fxj [facility] Physician GroupComment on above:Result Comment: Random Glucose Reference Range is dependent on time and content of last meal. Glucose of more than 200 mg/dL in a nonstressed, ambulatory subject supports the diagnosis of Diabetes Mellitus. ADA recommended reference rangePerformed By: #### PTH, CLAUDY, RENAL, FE and TIBC, CBCNO, [id number], MG, [id number], URIC #### [place] [address] [place] #### KAPPA, SHORTY SERUM, SPE W INTERPRET #### [facility] ,Phosphate [Mass/Vol]4.3 mg/dLNormal2.5-4.5The [facility] Physician GroupComment on above:Performed By: #### PTH, CLAUDY, RENAL, FE and TIBC, CBCNO, [id number], MG, QETP43KQA, URIC #### [address] #### KAPPA, SHORTY SERUM, SPE W INTERPRET #### [facility] ,Potassium [Moles/Vol]4.7 mmol/LNormal3.5-5.1The [facility] Comment on above:Performed By: #### PTH, CLAUDY, RENAL, FE and TIBC, CBCNO, [id number], MG, [id number], URIC #### [address] #### KAPPA, SHORTY SERUM, SPE W INTERPRET #### [facility] ,Sodium [Moles/Vol]140 mmol/NYpujyc791-695Khv [facility] Physician GroupComment on above:Performed By: #### PTH, CLAUDY, RENAL, FE and TIBC, CBCNO, [id number], MG, MOHW52MZF, URIC #### [address] #### KAPPA, SHORTY SERUM, SPE W INTERPRET #### [facility] ,Urea nitrogen [Mass/Vol]22 mg/dLNormal7-25The [facility] Physician GroupComment on above:Performed By: #### PTH, CLAUDY, RENAL, FE and TIBC, CBCNO, [id number], MG, QLXX29DEI, URIC #### [place] [address] [place] #### KAPPA, SHORTY SERUM, SPE W INTERPRET #### [facility] ,Serum free kappa light chain measurementOrdered By: Morgan Womack on 04-10-2024 Immunoglobulin light chains.kappa.free (S) [Mass/Vol]Immunoglobulin light chains.kappa.free [Mass/volume] in SerumHigh3.3-19.4FKettering Health Greene Memorialerum globulin measurement (mass/volume)Ordered By: Morgan Womack on 86-37-3160Atacnxwo (S) [Mass/Vol]Serum globulin measurement (mass/volume)2.2-3.9 Veterans Health Administrationerum immunoglobulin free kappa light chains/immunoglobulin free lambda light chainsOrdered By: Morgan Womack on 36-11-0435Kyhzqboxijvtcg light chains.kappa.free/Immunoglobulin light chains.lambda.free (S) [Mass ratio]Immunoglobulin light chains.kappa.free/Immunoglobulin light chains.lambda.free [Mass0.26-1.65 Fisher-Titus Medical CenterComment on above:Performed at: Reading Room [address] [id number] Director: Jerrell Bautista PhD, Phone: [phone] or plasma albumin measurement (mass/volume)Ordered By: Morgan Womack on 65-74-8484Qmfhofu [Mass/Vol]Albumin [Mass/volume] in Serum or Plasma2.9-4.4FKettering Health Greene Memorialerum or plasma albumin/globulin mass ratioOrdered By: Morgan Shanta on 57-13-2046Bpvdpor/Globulin [Mass ratio] Serum or plasma albumin/globulin mass ratio0.7-1.7FKettering Health Greene Memorialerum or plasma alpha 1 globulin measurement by electrophoresis (mass/volume)Ordered By: Morgan Womack on 54-82-4349Xgbvy 1 globulin Elph [Mass/Vol]Serum or plasma alpha 1 globulin measurement by electrophoresis (mass/volume)0.0-0.4FKettering Health Greene Memorialerum or plasma alpha 2 globulin measurement by electrophoresis (mass/volume)Ordered By: Morgan Womack on 35-11-9540Ujhjv 2 globulin Elph [Mass/Vol]Serum or plasma alpha 2 globulin measurement by electrophoresis (mass/volume)0.4-1.0V[facility] Health Administrationerum or plasma anion gap determinationOrdered By: Morgan Womack on 25-12-0946Pcftp gap [Moles/Vol]Serum or plasma anion gap determination6.0-15.0 [facility] Administrationerum or plasma beta globulin measurement by electrophoresis (mass/volume)Ordered By: Morgan Womack on 17-36-9813Gyxo globulin Elph [Mass/Vol]Serum or plasma beta globulin measurement by electrophoresis (mass/volume)0.7-1.3FKettering Health Greene Memorialerum or plasma gamma globulin measurement by electrophoresis (mass/volume)Ordered By: Morgan Womack on 14-77-9636Fbesz globulin Elph [Mass/Vol]Serum or plasma gamma globulin measurement by electrophoresis (mass/volume)0.4-1.8[facility] Health Administrationerum or plasma immunoglobulin free lambda light chains measurement (mass/volume)Ordered By: Morgan Womack on 95-55-7160Jurzhsjfarrjtd light chains.lambda.free [Mass/Vol]Immunoglobulin light chains.lambda.free [Mass/volume] in Serum or Plasma5.7-26.3FKettering Health Greene Memorialerum or plasma iron binding capacity measurement (mass/volume)Ordered By: Morgan Womack 47-96-6880Fudx binding capacity [Mass/Vol]Iron binding capacity [Mass/volume] in Serum or Nqkwnq134-629LhxqmypklVeterans Health Administrationerum or plasma iron saturation measurement (mass fraction)Ordered By: Morgan Womack 29-81-8527Nyni saturation [Mass fraction]Iron saturation [Mass Fraction] in Serum or TkjvvnEvf11-75HfjwhssrvVeterans Health Administrationerum total protein measurementOrdered By: Morgan Womack 85-46-7512Anyoiwf [Mass/Vol]Protein [Mass/volume] in Serum or Plasma6.0-8.5FKettering Health Greene Memorialodium [Moles/volume] in Serum or PlasmaOrdered By: Morgan Womack 81-75-4711Wfzrpl [Moles/Vol]Sodium [Moles/volume] in Serum or Rmcxxh406-633ZtergnxxqVeterans Health Administrationpecific gravity Test strip (U) [Rel density]Ordered By: Morgan Womack 64-14-3057Oyusfnqf gravity (U) [Rel density]Specific gravity of Urine by Test strip1.001-1.030Fisher-Titus Medical CenterTransferrin [Mass/volume] in Serum or PlasmaOrdered By: Morgan Womack 12-02-2858Ikgxdthncns [Mass/Vol]Transferrin [Mass/volume] in Serum or Toytkl972-454JkjynpbohFisher-Titus Medical CenterUS renal BIon 75-03-8648SX renal [facility] Main [place] [address] [place] [address] Ultrasound Report Signed Patient: Eleanor Mcclain MR#: [id number] : 1950 Acct:[id number] Age/Sex: 73 / F ADM Date: 04/10/24 Loc: Room: Type: [facility] Attending Dr: Morgan Womack MD Ordering Provider: [...] Pastrana Jr., D.OGina04/10/2024 3:04 PM Dictation Location: [place] [address] Tech: [facility] Transcribed By: CATA 04/10/24 1504 Dictated By: Shant Pastrana Jr, DO 04/10/24 1503 Signed By: 04/10/24 1504NoNovant Health Presbyterian Medical Center Physician GroupUrate [Mass/volume] in Serum or PlasmaOrdered By: Morgan Womack on 54-97-7304Qqekq [Mass/Vol]Urate [Mass/volume] in Serum or Plasma2.3-6.6FKettering Health – Soin Medical CenterUrea nitrogen [Mass/volume] in Serum or PlasmaOrdered By: Morgan Womack on 09-81-8669Jwhs nitrogen [Mass/Vol]Urea nitrogen [Mass/volume] in Serum or Plasma7-25Fisher-Titus Medical CenterUric Acidon 39-70-1478Lysnk [Mass/Vol]4.8 mg/dLNormal 2.3-6.6The [facility] Physician GroupComment on above:Performed By: #### PTH, CLAUDY, RENAL, FE and TIBC, CBCNO, DDML48RL, MG, JHYD71TZD, URIC #### [place] [address] [place] #### KAPPA, SHORTY SERUM, SPE W INTERPRET #### [facility] ,Urine Cultureon 05-29-3909Hhffouhp identified Cx Nom (U)ORGANISM: Escherichia coli (MDRO) (O:ESCCOLMDRO) Brooten Count >100,000 Aerobic DEANNA Charge (NMIC56) SUSCEPTIBILITY [...] RESISTANT TO ALL B-LACTAM DRUGS. PERFORMED BY: [facility] [address] [place] [address] PATHOLOGIST IT SYSTEMS ANALYST CARON MUNOZ M.D.NormalSt. Joseph'S Hospital Physician GroupComment on above: Performed By: #### PTH, CLAUDY, RENAL, FE and TIBC, CBCNO, [id number], MG, MIEU88HXO, URIC #### [address] #### KAPPA, SHORTY SERUM, SPE W INTERPRET #### [facility] ,Urine protein/creatinine ratioOrdered By: Morgan Womack on 04-10-2024 Protein/Creatinine (U) [Ratio]Urine protein/creatinine ratioHigh0-200Fisher-Titus Medical CenterUrobilinogen Test strip (U) [Mass/Vol]Ordered By: Morgan Womack on 40-99-5673Uirgxqildgke (U) [Mass/Vol]Urobilinogen [Mass/volume] in Urine by Test stripNormThe Bellevue HospitalVit. B12/Folate Profileon 28-80-0500Vrcoowrvy (Vitamin B12) [Mass/Vol]186 pg/gQYdsiut865-341Qwl [facility] Physician GroupComment on above:Performed By: #### PTH, CLAUDY, RENAL, FE and TIBC, CBCNO, CLDV31DU, MG, OSFP09ITK, URIC #### [address] #### KAPPA, SHORTY SERUM, SPE W INTERPRET #### [facility] ,Ibemvl71.5 ng/mLNormal>5.9The [facility] Physician [facility]ipp[facility] County HospitalComment on above:Result Comment: Folate reference range: >5.9 ng/ml The WHO technical consultation on folate and vitamin b12 deficiencies has determined that folate concentrations less than 4 ng/ml are considered deficient.Performed By: #### PTH, CLAUDY, RENAL, FE and TIBC, CBCNO, NOBG71DE, MG, TMSU94IHF, URIC #### [place] [address] [place] #### KAPPA, SHORTY SERUM, SPE W INTERPRET #### [facility] ,Vitamin B12 ser/plasOrdered By: Morgan Womack on 32-45-5802Jtoryrzji (Vitamin B12) [Mass/Vol]Vitamin B12 ser/mqpv717-195GvaeritpbFisher-Titus Medical Center Vitamin D 25 Hydroxy Totalon 15-39-4935Ieekhrp D 25 Hydroxy Total97.6 ng/mL Asgnyb07-179Wbx [facility] Physician GroupComment on above:Result Comment: VITAMIN D STATUS 25(OH)VITAMIN D RANGE (ng/mL) Deficient <20 Insufficient 20 to <30 Sufficient 30 to 100 Reference: Robert Gould, Chastity RODARTE, et al. Evaluation,treatment, and prevention of vitamin D deficiency; an Endocrine Society clinical practice guideline. JCEM. 2010; 96(7):1911-. PERFORMED BY: [place] [address] PATHOLOGIST IT SYSTEMS ANALYST CARON MUNOZ M.D.Performed By: #### PTH, CLAUDY, RENAL, FE and TIBC, CBCNO, LGFY22GA, MG, DFGX73OYG, URIC #### [facility] [address] [place] [address] #### KAPPA, SHORTY SERUM, SPE W INTERPRET #### [facility] ,Vitamin D+Metabolites [Mass/volume] in Serum or PlasmaOrdered By: Morgan Womack on 53-47-0331Syiafzo D+Metabolites [Mass/Vol]Vitamin D+Metabolites [Mass/volume] in Serum or Cvypqn06-036ZzznlklgsFisher-Titus Medical CenterComment on above: VITAMIN D STATUS 25(OH)VITAMIN D RANGE (ng/mL) Deficient <20 Insufficient 20 to <04Luuudbezfq99 to 100Reference: Robert Gould, Chastity RODARTE, et al. Evaluation,treatment, and prevention of vitamin D deficiency; an Endocrine Society clinical practice guideline. JCEM. 2010; 96(7):1911-30.pH Test strip (U)Ordered By: Morgan Womack on 39-74-4549yB (U)pH of Urine by Test strip5.0-9.0 [facility]-Titus Medical CenterECG 12-LEADon 85-35-5436Mro[address] [place] [address] Electrocardiograph Report Signed Patient: ELEANOR MCCLAIN MR#: [id number] : 1950 Acct:[id number] Age/Sex: 72 / F ADM Date: 11/02/23 Loc: LAB Attending Dr: GeovannyStaff Physician Sheriff Ordering Physician: Beth Lancaster M.D. Date of Service: 11/02/23 Procedure(s): ECG 12 lead Accession Number(s): [id number] cc: [facility] Test Date: 2023-11-02 Pat Name: ELEANOR MCCLAIN Department: Room: - Gender: Female Visiting Nurse: : 1950 Requested By: GRAYSON HERNANDEZ Order Number: [id number] Reading MD: CEDRIC PENNY Measurements Intervals [place] Rate: 56 P: 59 MD: 216 QRS: 37 QRSD: 93 T: 31 [...] 11/03/23 0653 11/03/23 06 DD/ 1103 TD/TT: Cage Supervisor:JUDYHRadiology, Radiologist, - 11/03/[address] [address] Electrocardiograph Report Signed Patient: ELEANOR MCCLAIN MR#: [id number] : 1950 Acct:[id number] Age/Sex: 72 / F ADM Date: 11/02/23 Loc: LAB Attending Dr: Beth Lancaster M.D. Ordering Physician: Beth Lancaster M.D. Date of Service: 11/02/23 Procedure(s): ECG 12 lead Accession Number(s): [id number] cc: [facility] Test Date: 2023-11-02 Pat Name: ELEANOR MCCLAIN Department: Room: - Gender: Female Visiting Nurse: : 1950 Requested By: GRAYSON HERNANDEZ Order Number: [id number] Reading MD: CEDRIC PENNY Measurements Intervals [place] Rate: 56 P: 59 MD: 216 QRS: 37 QRSD: 93 T: 31 [...] 11/03/23 0653 11/03/23 0653 DD/ 110 TD/TT: Cage Supervisor: DYLAN Carbajal 12-LEADOrdered By: Radiologist Radiology on 04-64-8691ZGOH [employer] Work Phone: ECG 12-LEADon 81-43-1386Dflohpqio Study observation (narrative)DYLAN BartlettNuclear stress test with myocardial perfusionon 30-06-0674Jjf Stress EF65 %BON The MuseStress Target [id number] The MuseImage quality is good. Stress Test: A pharmacological [...] diastolic cavity size is normal.BSMH CV RPACS STRESSCARILION CLINIC ST. ALBANS HOSPITALNuclear stress test with myocardial perfusionon 09-27-2023 Radiology Study observation (narrative)CAR[facility] ST[facility] ALBANS HOSPITALGlucose, Whole Bloodon 87-95-9863Kutxsnh [Mass/Vol]104 mg/mJLskl53-660ZevwgBarnesville Hospital CULTURE URINEon 56-28-9190TYVBOXA URINEIsolate 1 Proteus mirabilis >100,000 cfu/mL of [...] 128 R F Trimethoprim/Sulfamethoxazole <=20 S FNormalThe [facility] HospitalComment on above:Performed By: #### URCX ####[facility] [address] [place] [address]Dr. Davidson Barroso AUTO DIFFon 43-20-6441UXXI #0.1 103/ulNormal0.0-0.1The [place] [facility] HospitalComment on above:Performed By: #### POCGLUC #### [facility] [address] [place] [address] Dr. Davidson SaundersBasophils/100 WBC (Bld)0.5 %Normal0.2-2.0[facility] Comment on above:Performed By: #### POCGLUC #### [facility] [address] [place] [address] Dr. Davidson Root #0.2 103/ulNormal0.0-0.7The [place] [facility] HospitalComment on above: Performed By: #### POCGLUC #### [facility] [address] [place] [address] Dr. Davidson Guillaumeosinophils/100 WBC (Bld)1.6 %Normal0.9-7.0[facility] Comment on above:Performed By: #### POCGLUC #### [facility] [address] [place] [address] Dr. Davidson Guillaumerythrocyte distribution width (RBC) [Ratio]12.7 %Faecyi32.0-15.0 [facility] - YoungstownComment on above:Performed By: #### POCGLUC #### [facility] [address] [place] [address] Dr. Davidson SaundresHematocrit (Bld) [Volume fraction]38.7 %Gnimbo47.0-48.0[facility] - YoungstownComment on above:Performed By: #### POCGLUC #### [facility] [address] [place] [address] [address] Davidson SaundersHemoglobin (Bld) [Mass/Vol]13.2 g/sUSnkfqf01.0-16.0The [place] [facility] HospitalComment on above:Performed By: #### POCGLUC #### [facility] [address] [place] [address] Dr. Davidson Leon #0.17 10e3/ulCritically high0.00-0.03The [facility] Comment on above:Performed By: #### POCGLUC #### [facility] [address] [place] [address] Dr. Davidson Leon %1.1 %Critically high0.0-0.5The [place] [facility] HospitalComment on above:Performed By: #### POCGLUC #### [facility] [address] [place] [address] Dr. Davidson Alan #3.5 103/ulNormal1.2-3.8The [place] [facility] HospitalComment on above:Performed By: #### POCGLUC #### [facility] [address] [place] [address] Dr. Davidson Payanhocytes/100 WBC (Bld)23.7 %Nlopal08.5-60.0The [place] [facility] HospitalComment on above:Performed By: #### POCGLUC #### [facility] [address] [place] [address] Dr. Davidson ForresterUAL DIFF REQNONormalThe [place] [facility] HospitalComment on above: Performed By: #### POCGLUC #### [facility] [address] [place] [address] Dr. Davidson Hernandez (RBC) [Entitic mass]28.0 jkNnqecy40.7-34.0The [place] [facility] HospitalComment on above:Performed By: #### POCGLUC #### [facility] [address] [place] [address] Dr. Davidson Hernandez (RBC) [Mass/Vol]34.1 g/gLYlyppg48.9-35.2The [place] [facility] HospitalComment on above:Performed By: #### POCGLUC #### [facility] [address] [place] [address] [address] Davidson HernandezV (RBC) [Entitic vol]82.2 xPDcsusg46.0-99.0The [place] [facility] HospitalComment on above:Performed By: #### POCGLUC #### [facility] [address] [place] [address] [address] Davidson Martin #1.1 103/ulCritically high0.3-0.8ThSouthwest General Health Center Comment on above:Performed By: #### POCGLUC #### [facility] [address] [place] [address] [address] Davidson Cooperocytes/100 WBC (Bld)7.1 %Normal1.7-12.0[facility] Comment on above:Performed By: #### POCGLUC #### [facility] [address] [place] [address] Dr. Davidson Pedroza #9.8 103/ulCritically high1.4-6.5ThSouthwest General Health Center Comment on above:Performed By: #### POCGLUC #### [facility] [address] [place] [address] Dr. Davidson Grahamutrophils/100 WBC (Bld)66.0 %Pnrwpk86.0-75.0The [place] [facility] HospitalComment on above:Performed By: #### POCGLUC #### [facility] [address] [place] [address] Dr. Davidson Salguerolet mean volume (Bld) [Entitic vol]9.0 fLCritically low 9.5-13.5ThSouthwest General Health CenterComment on above:Performed By: #### POCGLUC #### [facility] [address] [place] [address] Dr. Davidson SaundersPLT201 103/lwCdhyzr519-716Skc [facility] HospitalComment on above: Performed By: #### POCGLUC #### [facility] [address] [place] [address] Dr. Davidson SaundersRBC4.71 106/ulNormal4.20-5.40The [place] [facility] HospitalComment on above:Performed By: #### POCGLUC #### [facility] [address] [place], [place] [address] Dr[address] Davidson SaundersWBC14.9 103/ulCritically high4.0-11.0The [place] [facility] HospitalComascension borgess allegan hospital on above:Performed By: #### POCGLUC #### [facility] [address] [place], [place] [address] Dr. Davidson Valdivia URINE PROFILEon 15-60-9747Hcmageztz Ql (U)NegativeNormal NEGATIVESelect Medical Specialty Hospital - YoungstownComment on above:Performed By: #### ERUJohn UMICRO ####[facility] [address] [place], [place]Dr. Davidson ChangClarity (U)CLOUDYAbnormalCLEARThe [place] [facility] Surgical HospitalComment on above: Performed By: #### ERUJohn UMICRO ####[facility] [address] [place] [address]Dr. Davidson SaundersColor (U)DK. YELLOWNormalYELLOWSelect Medical Specialty Hospital - YoungstownComment on above:Performed By: #### ERUJohn UMICRO ####[facility] [address] [place] [address]Dr. Davidson Abdullahi A micrscopic examination will be performed if indicated.NormalThe [place] [facility] Surgical HospitalComment on above:Performed By: #### ERUJohn UMICRO ####[facility] [address] [place] [id number]. Davidson ChangGlucose Ql (U) NegativeNormalNEGATIVESelect Medical Specialty Hospital - YoungstownComment on above:Performed By: #### ERUJohn UMICRO ####[facility] [address] [place] [id number] Cedeño ChangHemoglobin Ql (U)NegativeNormalNEGATIVEMiami Valley Hospital on above:Performed By: #### ERUR, UMICRO ####[facility] [address] [place] [id number]. Davidson ChangKetones Ql (U) NegativeNormalNEGATIVEThe Gustavo HospitalComment on above:Performed By: #### JIA UMICRO ####[facility] [address] [place] [id number]. Yilan ChangLEUKOCYTESLARGEAbnormalNEGATIVEThe [place] HospitalComment on above:Performed By: #### JIA UMICRO ####[facility] [address] [place] [id number]. Meilan ChangNitrite Ql (U)PositiveAbnormal NEGATIVEThe [place] HospitalComment on above:Performed By: #### JIA UMICRO ####[facility] [address] [place] [address]Dr. Yilan ChangpH (U)[pH]Abnormal5-9The [place] [facility] HospitalComment on above:Performed By: #### JIA UMICRO ####[facility] [address] [place] [address]Dr. Yilan ChangProtein (U) [Mass/Vol]100 mg/dLAbnormal NEGATIVE/ TRACEThe [place] HospitalComment on above:Performed By: #### JIA UMICRO ####[facility] [address] [place] [address]Dr. Davidson ChangSPEC GRAVITY1.973Dpddsd7.005-<=1.025The [facility] Comment on above:Performed By: #### JIA UMICRO ####[facility] [address] [place] [address]Dr. Yilan ChangUR MICRO IND INDICATEDNormalThe [place] [facility] Surgical HospitalComment on above:Performed By: #### JIA UMICRO ####[facility] [address] [place] [address]Dr. Yilan ChangUrobilinogen Qn (U)1.0 {Balaji'U}/dLNormal0.2 - 1.0The [place] [facility] HospitalComment on above:Performed By: #### JIA UMICRO ####[facility] [address] [place] [address]Dr. Yilan ChangPROF CHEM 8 (BAS METB)on 24-35-2336Raymo gap [Moles/Vol]13.6 mmol/LNormalThe [place] [facility] Surgical HospitalComment on above:Performed By: #### MAIN, HSTROPN ####[facility] [address] [place] [address]Dr. Yilan ChangCalcium [Mass/Vol]9.6 mg/dLNormal8.5-10.1The [place] HospitalComment on above:Performed By: #### MAIN, HSTROPN ####[facility] [address] [place] [address]Dr. Yilan ChangChloride [Moles/Vol]100 mmol/LNormal 98-107The [place] [facility] HospitalComment on above:Performed By: #### MAIN, HSTROPN ####[facility] [address] [place], [place] [address]Dr. Yilan ChangCO2 [Moles/Vol]28.1 mmol/HSvnvdo98.0-32.0The [place] HospitalComment on above:Performed By: #### MAIN, HSTROPN ####[facility] [address] [place], [place] [address]Dr. Yilan ChangCreatinine [Mass/Vol]1.94 mg/dLCritically high0.55-1.02The [place] [facility] HospitalComment on above:Performed By: #### MAIN, HSTROPN ####[facility] Stsaowgfxw1104 [facility], [place]Dr. Yilan ChangEGFR-AF RQPKYVPP45 mL/min/1.73m2 Critically low>=60The [place] [facility] HospitalComment on above:Performed By: #### BMP, HSTROPN ####[facility] Ypfeupfu[address] [place] [address]Dy. Yilan ChangEGFR-NON AF JSORAUNE87 mL/min/1.86c3Ctxkysrknt low>=60The [place] [facility] HospitalComment on above:Performed By: #### BMP, HSTROPN ####[facility] Ybnqjmjdyb[address] [place], [place] [address]Dr. Yilan Saunders Glucose [Mass/Vol]165 mg/dLCritically lowf86-449Vli [facility] HospitalComment on above:Performed By: #### MAIN, HSTROPN ####[facility] [address]oche[address] [place] [address]Dr. Davidson ChangPotassium [Moles/Vol]3.7 mmol/L Normal3.5-5.1The [place] [facility] HospitalComment on above:Performed By: #### MAIN, HSTROPN ####[facility] [address] [place] [id number]. Davidson ChangSodium [Moles/Vol]138 mmol/VMpjrkr105-274Ojv [facility] HospitalComasc[facility] on above:Performed By: #### MAIN, HSTROPN ####[facility] Hmqmxmxjju7[address] [place] [address]Dr. Davidson ChangUrea nitrogen [Mass/Vol]41.0 mg/dLCritically high7.0-18.0The [place] [facility] HospitalCom[facility] on above:Performed By: #### MAIN, HSTROPN ####[facility] [address]jojputbqr[address] [place] [address]Dr. Meilan ChangUrea nitrogen/Creatinine [Mass ratio]21.1 mg/mgNormalThe [place] [facility] HospitalComasc[facility] on above:Performed By: #### MAIN, HSTROPN ####[facility] L[address]xtub[address] [place] [address]Dr. Davidson ChipTROPONIN, HIGH SENSITIVITYon 29-68-0575ZCSCNX84.9 pg/mL Normal4.0-51.3The [place] [facility] HospitalComasc[facility] on above:Result Comment: CUT-OFF POINTS HAVE BEEN ESTABLISHED BASED ON THE FOURTH UNIVERSAL DEFINITIONS OF MY OCARDIAL INFARCTION. THE UPPER REFERENCE LIMIT (URL) OF TROPONIN, DEFINED THE 99TH PERCENTILE OF cTnI DISTRIBUTION IN A REFERENCE POPULATION, HAS BEEN CONFIRMED THE DECISION THRESHOLD FOR MS DIAGNOSIS.Performed By: #### MAIN, HSTROPN ####[facility] Hpdzsbyahy[address] [place], [place] [address]Dr. Meilan ChangURINE MICROSCOPIC ONLYon 20-80-3600DMUEPQLPTZRVNFAZFyfkbwzeKYLP SEENThe [place] [facility] Surgical HospitalComment on above:Performed By: #### JIA UMICRO ####[facility] Zpa[address]wkeqw[address] [place] [address]Dr. Davidson SaundersBacteria identified Cx Nom (U)INDICATEDNormalThe [place] [facility] Surgical HospitalComment on above: Performed By: #### JIA UMICRO ####[facility] [address]hrsh[address] [place] [address]Dr. Davidson ChangCASTNONE SEENNormalNONE SEENSelect Medical Specialty Hospital - YoungstownComment on above:Performed By: #### JIA UMICRO ####[facility] K[address]qjwsvr[address] [place] [address]Dr. Davidson SaundersCrystals LM Nom (Urine sed)SEENAbnormalNONE SEENSelect Medical Specialty Hospital - YoungstownComascension borg[facility] hospital on above:Performed By: #### JIA UMICRO ####[facility] Jtjiqbnogr[address] [place], [place] [address]Dr. Davidson ChangEpithelial cells LM Ql (Urine sed)FEW AbnormalNONE SEEN /RAREThe [place] [facility] HospitalComment on above:Performed By: #### JIA UMICRO ####[facility] Lmyyfsijgq[address] [place], [place] [address]Dr. Davidson ChangMUCOUSNONE SEENNormmiNONE SEENThe [place] [facility] HospitalComment on above:Performed By: #### JIA UMICRO ####[facility] Syykvamsfc[address] [place], [place] [address]Dr. Davidson ChangRBCNONE SEENAbnormal0-2The [place] [facility] HospitalComment on above:Performed By: #### JIA UMICRO ####[facility] Hfndkjnmse[address] [place], [place] [address]Dr. Davidson SaundersWBC 10-20AbnormalNONE SEENSelect Medical Specialty Hospital - YoungstownComment on above:Performed By: #### JIA UMICRO ####[facility] Kzafgrflsw[address] [place], [place] [address]Dr. Davidson SaundersXR CHEST 1 Von 30-29-3103PU CHEST 1 VXR CHEST 1 V CLINICAL: [...] Electronically authenticated by: ABHI CANTU Date: 2022-07-25 11:13[facility] CenterCOVID + FLU Quick Testingon [id number]-CoV-2 (COVID-19) RNA SAE+probe Ql (Unsp spec)NegativeNossm [facility] Pomogatel Other COVID + FLU Quick TestingNegativeNoGoodie Goodie App Other CULTURE URINEon 26-57-4760OAWHQNK URINEIsolate 1 Escherichia coli >100,000 cfu/mL of [...] <=16 S F Trimethoprim/Sulfamethoxazole <=20 S FNormalThe [place] [facility] HospitalComment on above:Performed By: #### URCX ####[facility] [address]ls[address]xu[address] [place] [address]Dr. Davidson SaundersHEALTHSOU[facility]KE[facility] AUTO DIFFon 38-74-0680UDGA #0.0 103/ulNormal0.0-0.1The [place] [facility] HospitalComment on above:Performed By: #### A1C #### [facility] [address] [place] [address] Dr. Davidson SaundersBasophils/100 WBC (Bld)0.3 %Normal0.2-2.0[facility] [place] Comment on above:Performed By: #### A1C #### [facility] [address] [place] [address] Dr. Davidson Root #0.0 103/ulNormal0.0-0.7The [place] [facility] HospitalComment on above: Performed By: #### A1C #### [facility] [address] [place] [address] Dr. Davidson Guillaumeosinophils/100 WBC (Bld)0.0 %Critically low0.9-7.0The [place] [facility] HospitalComment on above:Performed By: #### A1C #### [facility] [address] [place] [address] Dr. Davidson Guillaumerythrocyte distribution width (RBC) [Ratio]13.2 %Tymwcw02.0-15.0 [facility] - YoungstownComment on above:Performed By: #### A1C #### [facility] [address] [place] [address] Dr. Davidson SaundersHematocrit (Bld) [Volume fraction]30.5 %Critically low36.0-48.0 [facility] - YoungstownComment on above:Performed By: #### A1C #### [facility] [address] [place] [address] Dr. Davidson SaundersHemoglobin (Bld) [Mass/Vol]10.0 g/dLCritically low12.0-16.0[facility] - YoungstownComment on above:Performed By: #### A1C #### [facility] [address] [place] [address] Dr. Davidson Leon #0.09 10e3/ulCritically high0.00-0.03The [facility] Comment on above:Performed By: #### A1C #### [facility] [address] [address] [address] Davidson Leon %0.9 %Critically high0.0-0.5The [place] [facility] HospitalComment on above:Performed By: #### A1C #### [facility] [address] [place] [address] Dr. Davidson Alan #1.5 103/ulNormal1.2-3.8The [place] [facility] HospitalComment on above:Performed By: #### A1C #### [facility] [address] [place] [address] Dr. Davidson Payanhocytes/100 WBC (Bld)14.2 %Critically low20.5-60.0The [place] [facility] HospitalComment on above:Performed By: #### A1C #### [facility] [address] [place] [address] Dr. Davidson ForresterUAL DIFF REQNONormalThe [place] [facility] HospitalComment on above: Performed By: #### A1C #### [facility] [address] [place] [address] Dr. Davidson Hernandez (RBC) [Entitic mass]28.1 hcVruppj21.7-34.0The [place] [facility] HospitalComment on above:Performed By: #### A1C #### [facility] [address] [place] [address] Dr. Davidson Hernandez (RBC) [Mass/Vol]32.8 g/kWOuahvl09.9-35.2The [place] [facility] HospitalComment on above:Performed By: #### A1C #### [facility] [address] [place] [address] Dr. Davidson Hernandez (RBC) [Entitic vol]85.7 cLVinvpx75.0-99.0The [place] [facility] HospitalComment on above:Performed By: #### A1C #### [facility] [address] [place] [address] Dr. Davidson Martin #0.8 103/ulNormal0.3-0.8The [place] [facility] HospitalComment on above:Performed By: #### A1C #### [facility] [address] [address] [address] Davidson Cooperocytes/100 WBC (Bld)8.1 %Normal1.7-12.0The [facility] Comment on above:Performed By: #### A1C #### [facility] [address] [address] [address] Davidson Pedroza #7.8 103/ulCritically high1.4-6.5The [facility] Comment on above:Performed By: #### A1C #### [facility] [address] [place] [address] Dr. Davidson Grahamutrophils/100 WBC (Bld)76.5 %Critically high43.0-75.0The [place] [facility] HospitalComment on above:Performed By: #### A1C #### [facility] [address] [place] [address] Dr. Davidson SaundersPlatelet mean volume (Bld) [Entitic vol]9.1 fLCritically low 9.5-13.5The [place] [facility] HospitalComment on above:Performed By: #### A1C #### [facility] [address] [place] [address] Dr. Davidson SaundersPLT255 103/caBnzhsy372-677Dsf [facility] HospitalComment on above: Performed By: #### A1C #### [facility] [address] [place] [address] Dr. Davidson SaundersRBC3.56 106/ulCritically low4.20-5.40The [place] [facility] HospitalComment on above:Performed By: #### A1C #### [facility] [address] [place] [address] Dr. Davidson SaundersWBC10.2 103/ulNormal4.0-11.0The [place] [facility] HospitalComment on above:Performed By: #### A1C #### [facility] [address] [place] [address] Dr. Davidson Ferguson 14(COMP METB)on 09-88-1850Xfuepzc [Mass/Vol]3.3 g/dL Critically low3.4-5.0The [place] [facility] HospitalComment on above:Performed By: #### CMP ####[facility] Fwukpwqcjz[address] [place], [place] [address]Jm. Yilan ChangAlbumin/Globulin [Mass ratio]0.8 {ratio}NormalThe [facility] Comment on above:Performed By: #### CMP ####[facility] Nerfvfbbem[address] [place], [place] [address]Cj.Yilan ChangALP [Catalytic activity/Vol]92 U/AUohyqk55-833Ckf [facility] Rehabilitation Hospitalment on above:Performed By: #### CMP ####[facility] [address] [place] [address]Dr. Yilan ChangALT [Catalytic activity/Vol]17 U/JRluebf80-35Mua [facility] Comment on above:Performed By: #### CMP ####[facility] [address] [place] [address]Dr.Yilan ChangAnion gap [Moles/Vol]12.8 mmol/LNormalThe [place] [facility] HospitalComment on above:Performed By: #### CMP ####[facility] [address]qybxwr[address] [place] [address]Dr. Yilan ChangAST [Catalytic activity/Vol]12 U/LCritically gcs50-25Vhu [facility] on above:Performed By: #### CMP ####[facility] A[address]wflcvy[address] [place] [address]Dr.Yilan ChangBilirubin [Mass/Vol]0.2 mg/dLNormal0.2-1.0The [place] [facility] HospitalComment on above:Performed By: #### CMP ####[facility] Qctuywiunb[address] [place] [address]Dr.Yilan ChangCalcium [Mass/Vol]9.2 mg/dLNormal8.5-10.1The [place] [facility] HospitalComasc[facility] on above:Performed By: #### CMP ####[facility] Euefusvewc[address] [place], [place] [address]Dr.Yilan ChangChloride [Moles/Vol]105 mmol/EVwhamd17-040Nsa [facility] HospitalComment on above:Performed By: #### CMP ####[facility] Xxfzjceoae[address] [place] [address]Dr.Yilan ChangCO2 [Moles/Vol]24.7 mmol/KVhiept31.0-32.0The [place] [facility] HospitalComment on above:Performed By: #### CMP ####[facility] Msrzedkdqr[address] [place] [address]Dr.Yilan ChangCreatinine [Mass/Vol]1.36 mg/dLCritically high0.55-1.02The [place] [facility] HospitalComment on above:Performed By: #### CMP ####[facility] Ekckjsrxya[address] [place], [place] [address]Dr.Yilan ChangEGFR-AF IPZVRQWE66 mL/min/1.73m2 Critically low>=60The [place] [facility] HospitalComment on above:Performed By: #### CMP ####[facility] Ecdsaakkeo[address] [place], [place] [address]Dr. Yilan ChangEGFR-NON AF ZNTUHMWD13 mL/min/1.79r7Tabfcsphat low>=60The [place] [facility] HospitalComment on above:Performed By: #### CMP ####[facility] Jfoazkiexz[address] [place], [place] [address]Dr.Yilan ChangGlobulin (S) [Mass/Vol]4.3 g/dLNormalThe [place] [facility] HospitalComment on above:Performed By: #### CMP ####[facility] Vfftyucefv[address] [place], [place] [address]Dr.Yilan ChangGlucose [Mass/Vol]106 mg/oZWxxpzj69-671Slp [facility] Comment on above:Performed By: #### CMP ####[facility] Ikzcxpdwwa[address] [place], [place] [address]Dr.Yilan ChangPotassium [Moles/Vol]4.5 mmol/LNormal3.5-5.1The [place] [facility] HospitalComment on above:Performed By: #### CMP ####[facility] Vxktelfknd[address] [place], [place] [address]Dr. Yilan ChangProtein [Mass/Vol]7.6 g/dLNormal6.4-8.2The [place] [facility] HospitalComment on above:Performed By: #### CMP ####[facility] Vhhandlzhv[address] [place], [place] [address]Dr.Yilan ChangSodium [Moles/Vol]138 mmol/LNormal 136-145The [place] [facility] HospitalComment on above:Performed By: #### CMP ####[facility] Yrthtdamta[address] [place], [place] [address]Dr.Meilan ChangUrea nitrogen [Mass/Vol]24.0 mg/dLCritically high7.0-18.0The [place] [facility] HospitalComment on above:Performed By: #### CMP ####[facility] Jatblujitc[address] [place], [place] [address]Dr.Yilan ChangUrea nitrogen/Creatinine [Mass ratio] 17.6 mg/mgNormalThe [place] [facility] HospitalComasc[facility] on above:Performed By: #### CMP ####[facility] Amwxvuaouw[address] [place], [place] [address]Dr. Davidson ChangCARDIAC DIEGO 3-6on 41-26-7588QW [Catalytic activity/Vol]42 U/LNormal 26-192The [place] [facility] HospitalComment on above:Performed By: #### CMREP ####[facility] Ghjzaijccz[address] [place], [place] [address]Dr. Davidson ChipCK.MB [Mass/Vol]1.07 ng/mLNormal<=3.60The [facility] on above:Performed By: #### CMREP ####[facility] Omojmxjneu[address] [place], [place] [address]Dr. Davidson SaundersIzjsdXAMAAY60.0 pg/mLNormal4.0-51.3The [place] [facility] HospitalComasc[facility] on above:Result Comment: CUT-OFF POINTS HAVE BEEN ESTABLISHED BASED ON THE FOURTH UNIVERSAL DEFINITIONS OF MYOCARDIAL INFARCTION. THE UPPER REFERENCE LIMIT (URL) OF TROPONIN, DEFINED THE 99TH PERCENTILE OF cTnI DISTRIBUTION IN A REFERENCE POPULATION, HAS BEEN CONFIRMED THE DECISION THRESHOLD FOR MS DIAGNOSIS.Performed By: #### CMREP ####[facility] Ksyculntdc[address] [place], [place] [address]Dr. Davidson ChangCK [Catalytic activity/Vol]47 U/BFctobx88-847Rwh [facility] HospitalComment on above:Performed By: #### CMREP #### [facility] [address] [address] [address] Davidson Le.MB [Mass/Vol]0.69 ng/mLNormal<=3.60The [facility] Comment on above:Performed By: #### CMREP #### [facility] [address] [address] [address] Davidson SaundersHSTROP12.8 pg/mLNormal4.0-51.3The [place] [facility] HospitalComment on above:Result Comment: CUT-OFF POINTS HAVE BEEN ESTABLISHED BASED ON THE FOURTH UNIVERSAL DEFINITIONS OF MYOCARDIAL INFARCTION. THE UPPER REFERENCE LIMIT (URL) OF TROPONIN, DEFINED THE 99TH PERCENTILE OF cTnI DISTRIBUTION IN A REFERENCE POPULATION, HAS BEEN CONFIRMED THE DECISION THRESHOLD FOR MS DIAGNOSIS.Performed By: #### CMREP #### [facility] [address] [address] [address] Davidson JuddC AUTO DIFFon 63-15-2240PCNT #0.1 103/ulNormal0.0-0.1The [place] [facility] HospitalComment on above:Performed By: #### CBC ####[facility] [address] [place] [address]DrRafita SaundersBasophils/100 WBC (Bld)0.5 %Normal0.2-2.0The [place] [facility] HospitalComment on above:Performed By: #### CBC ####[facility] Ltqntfewxe[address] [place] [address]DrRafita ChangEO #0.1 103/ulNormal0.0-0.7The [place] [facility] HospitalComment on above:Performed By: #### CBC ####[facility] Q[address]ipzz[address] [place] [address] ChangEosinophils/100 WBC (Bld)1.1 %Normal 0.9-7.0The [place] [facility] HospitalComment on above:Performed By: #### CBC ####[facility] Afxmfifhgm4[address] [place] [address]Dr.Yilan Saunders Erythrocyte distribution width (RBC) [Ratio]13.4 %Alldpe46.0-15.0The [place] [facility] HospitalComment on above:Performed By: #### CBC ####[facility] Rjwoovxalt[address] [place], [place] [address]Dr.Davidson ChangHematocrit (Bld) [Volume fraction]32.4 %Critically low36.0-48.0The [facility] HospitalComment on above:Performed By: #### CBC ####[facility] Ztvdylnsmp[address] [place], [place] [address]Dr.Davidson ChangHemoglobin (Bld) [Mass/Vol]10.5 g/dL Critically low12.0-16.0The [place] [facility] HospitalComment on above:Performed By: #### CBC ####[facility] Qkxmsznsdq[address] [place], [place] [address]Dr. Davidson ChangIG #0.07 10e3/ulCritically high0.00-0.03The [place] [facility] HospitalComment on above:Performed By: #### CBC ####[facility] Aaowvzrrpq[address] [place], [place] [address]Dr.Davidson ChangIG %0.6 %Critically high0.0-0.5The [place] [facility] HospitalComment on above:Performed By: #### CBC ####[facility] Giwneqnoks[address] [place], [place] [address]Dr.Davidson SaundersMPH #1.7 103/ulNormal1.2-3.8The [place] [facility] HospitalComment on above:Performed By: #### CBC ####[facility] Pprfxqdsun[address] [place], [place] [address]Dr. Davidson SaundersLymphocytes/100 WBC (Bld)14.5 %Critically low20.5-60.0The [place] HospitalComment on above:Performed By: #### CBC ####[facility] Zbcojfbbar[address] [place], [place] [address]Dr.Davidson SaundersMANUAL DIFF REQ NONormalThe [place] [facility] HospitalComment on above:Performed By: #### CBC ####[facility] Gyrrypyzge[address] [place], [place] [address]Dr. Davidson SaundersELIZABETHTOWN [facility] (RBC) [Entitic mass]27.9 vhIdumlv15.7-34.0The [facility] Comment on above:Performed By: #### CBC ####[facility] [address]girqihm[address] [place] [address]Dr.Davidson SaundersHC (RBC) [Mass/Vol]32.4 g/dL Pxboui55.9-35.2The [place] [facility] HospitalComment on above:Performed By: #### CBC ####[facility] [address]vdecbarym[address] [place] [address]Dr. Davidson SaundersV (RBC) [Entitic vol]86.2 zZHbjufq93.0-99.0The [facility] Comment on above:Performed By: #### CBC ####[facility] Rxohbnxpeb[address] [place], [place] [address]Dr.Davidson SaundersMONO #1.1 103/ulCritically high0.3-0.8The [place] [facility] HospitalComment on above:Performed By: #### CBC ####[facility] Bzxelpznbi[address] [place], [place] [address]Dr. Davidson SaundersMonocytes/100 WBC (Bld)9.8 %Normal1.7-12.0The [facility] Comment on above:Performed By: #### CBC ####[facility] Teznolhvhw[address] [place], [place] [address]Dr.Davidson SaundersNEUT #8.6 103/ulCritically high1.4-6.5The [place] [facility] HospitalComment on above:Performed By: #### CBC ####[facility] Vabuvbudlp[address] [place], [place] [address]Dr. Davidson SaundersNeutrophils/100 WBC (Bld)73.5 %Sswnuw35.0-75.0The [facility] Comment on above:Performed By: #### CBC ####[facility] [address]uprfqrmv[address] [place], [place] [address]Dr.Davidson SaundersPlatelet mean volume (Bld) [Entitic vol]8.8 fLCritically low9.5-13.5The [place] [facility] HospitalComment on above: Performed By: #### CBC ####[facility] Gfxlrytnyb35[address] [place], [place] [address]Gd.Davidson CwcqeRMH093 103/yfScqysz051-421Tfl [facility] HospitalComment on above:Performed By: #### CBC ####[facility] Uanmpuwwls8[address] [place], [place] [address]My.Davidson SaundersRBC3.76 106/ul Critically low4.20-5.40The [place] [facility] HospitalComment on above:Performed By: #### CBC ####[facility] Yzrihosmno8348 [place], [place] [address]Tc. Davidson VwpwvHCY14.6 103/ulCritically high4.0-11.0The [place] [facility] HospitalComment on above:Performed By: #### CBC ####[facility] Gqhaudvuqg7236 [place], [place] [address]Fc.Davidson ChangCT STROKE HEAD WOon 12-38-3163RQ STROKE HEAD WONONCONTRAST CT SCAN OF THE [...] by: ANIYA SANTOYO Date: 2021-12-29 22:08NoMercy Health Allen HospitalCovid-19 PCR (CVDTBH)on 39-71-5397RHNK-CoV-2 (COVID-19) RNA SAE+probe Ql (Unsp spec)DetectedCritically abnormalNOT DETECTEDThe [place] [facility] HospitalComment on above:Result Comment: This test is not yet approved or cleared by the [place] FDA. When there are no FDA-approved or cleared tests available, and other criteria are met, FDA can make tests available under an emergency access mechanism called an Emergency Use Authorization (EUA). The EUA for this test is supported by the [place] of Health and Human Service's declaration that [...] mayno longer be used).Performed By: #### CVDTBH ####[facility] [address]um[address] [id number]. Yilan ChangER URINE PROFILEon 40-24-4993Xttkgxchz Ql (U)NegativeNormalNEGATIVESelect Medical Specialty Hospital - YoungstownComment on above:Performed By: #### TAVO RO ####[facility] Ourrseusft[address] [place], [place]Dr. Yilan ChangClarity (U) CLEARNormalCLEARSelect Medical Specialty Hospital - YoungstownComment on above:Performed By: #### TAVO RO ####[facility] Obeysfsrgj49[address] [place], [place] [address]Ne. Yilan ChangColor (U)LT. YELLOWNormalYELLOWSelect Medical Specialty Hospital - YoungstownComment on above:Performed By: #### CHARO RORO ####[facility] Cmcnblcrsk12[address] [place], [place]Dr. Yilan ChangERUAHDA micrscopic examination will be performed if indicated.NormalSelect Medical Specialty Hospital - YoungstownComment on above: Performed By: #### TAVO RO ####[facility] [address] [place] [address]Dr. Yilan ChangGlucose Ql (U)NegativeNormalNEGATIVEThe [place] [facility] HospitalComment on above:Performed By: #### TAVO RO ####[facility] [address]ypn[address] [place] [address]Dr. Yilan Saunders Hemoglobin Ql (U)TRACE-INTACTAbnormalNEGATIVESelect Medical Specialty Hospital - YoungstownComment on above:Performed By: #### TAVO RO ####[facility] Ckbzzzuotk0[address] Yilan ChangKetones Ql (U)NegativeNormal NEGATIVESelect Medical Specialty Hospital - YoungstownComment on above:Performed By: #### TAVO RO ####[facility] Wyyknxcgdr2711 [address] Yilan ChangLEUKOCYTESSMALLAbnormalNEGATIVESelect Medical Specialty Hospital - YoungstownComment on above: Performed By: #### TAVO RO ####[facility] Ofjxyamdsb[address] [place], [place] [address]r. Yilan ChangNitrite Ql (U)PositiveAbnormalNEGATIVE The [place] [facility] HospitalComment on above:Performed By: #### TAVO RO ####[facility] [address]drxbgb[address] [place] [address]Dr. Yilan ChangpH (U)6.0 [pH]Normal5-9[facility] [place]Comment on above: Performed By: #### TAVO RO ####[facility] [address] [address]Dr. Yilan ChangSPEC GRAVITY<=1.775Rmeufjrq4.005-<=1.025 The [place] [facility] HospitalComment on above:Performed By: #### TAVO RO ####[facility] [address]rwi[address] [place], [place] [id number]. Davidson SaundersUA PROTEINNegativeNormalNEGATIVE/ TRACEThe [place] [facility] Surgical HospitalComment on above:Performed By: #### TAVO RO ####[facility] [address]ckrrj[address] [id number]. Davidson SaundersUR MICRO INDINDICATEDSycamore Medical CenterComment on above:Performed By: #### TAVO RO ####[facility] [address]xuoftrj[address] [id number]. Davidson Saunders Urobilinogen Qn (U)0.2 {Balaji'U}/dLNormal0.2 - 1.0The [place] [facility] HospitalComment on above:Performed By: #### TAVO RO ####[facility] [address] [address]Dr. Davidson SaundersLIPID PROFILEon 12-30-2021 CHOL-HDL RATIO NORMSEE Shelby Memorial HospitalComment on above:Result Comment: 3.3 - 4.4 LOW RISK 4.4 - 7.1 AVERAGE RISK 7.1 - 11.0 MODERATE RISK >11.0 HIGH RISKPerformed By: #### POCGLUC #### [facility] [address] [place] [address] Dr. Davidson Cristobalesterol [Mass/Vol]170 mg/dLNormal<=200The [facility] Comment on above:Performed By: #### POCGLUC #### [facility] [address] [address] [address] Davidson Cristobalesterol in HDL [Mass/Vol]68 mg/dLCritically nnpg26-06Rol [facility] HospitalComment on above:Performed By: #### POCGLUC #### [facility] [address] [address] [address] Davidson Cristobalesterol in LDL [Mass/Vol]78.8 mg/dLSycamore Medical CenterComment on above:Performed By: #### POCGLUC #### [facility] [address] [address] [address] Yilan ChangCholesterol.total/Cholesterol in HDL [Mass ratio]2.5 {ratio} NormalSelect Medical Specialty Hospital - YoungstownComment on above:Performed By: #### POCGLUC #### [facility] [address] [address] [address] Davidson Garcia NORMAL> or = 60 mg/dl - LOW CARDIOVASCULAR RISK <40 mg/dl - HIGH CARDIOVASCULAR RISKSycamore Medical CenterComment on above:Performed By: #### POCGLUC #### [facility] [address] [address] [address] Davidson SaundersLDL CALC NORMALSEE BELOWNoMercy Health Allen HospitalComment on above:Result Comment: <100 mg/dl OPTIMAL 100 - 129 mg/dl NEAR OR ABOVE OPTIMAL 130 - 159 mg/dl BORDERLINE HIGH 160 - 189 mg/dl HIGH >190 mg/dl VERY HIGH Performed By: #### POCGLUC #### [facility] [address] [address] [address] Davidson SaundersTriglyceride [Mass/Vol]116 mg/dLNormal<=150[facility] [place] Comment on above:Performed By: #### POCGLUC #### [facility] [address] [address] [address] Davidson SaundersVLDL CALC23.2 mg/dLNoMercy Health Allen HospitalComment on above: Performed By: #### POCGLUC #### [facility] [address] [address] [address] Davidson SaundersMRI BRAIN WO CONon 09-50-1345SUZ BRAIN WO CONEXAM: MRI BRAIN WO CON [...] the basis of chronic microvascular angiopathic changes. Pecj-qo-ctinccae symmetric global volume loss without lobar predominance. [...] Electronically authenticated by: GISELLE BRENNAN Date: 2021-12-30 15:04[facility] GLUCOSEon 12-20-6268Ugoexmm [Mass/Vol]441 mg/dL Critically eweu36-540Wkk [facility] HospitalComment on above:Performed By: #### POCGLUC #### [facility] [address] [place] [address] Dr. Davidson SaundersGlucose [Mass/Vol]179 mg/dLCritically rkuj29-866OccSelect Medical Specialty Hospital - YoungstownComment on above:Performed By: #### POCGLUC #### [facility] [address] [address] [address] Davidson SaundersGlucose [Mass/Vol]110 mg/dLCritically bvkb14-328KfkSelect Medical Specialty Hospital - YoungstownComment on above:Performed By: #### A1C #### [facility] [address] [place] [address] Dr. Davidson SaundersPROF 14(COMP METB)on 07-55-7128Ufabxvf [Mass/Vol]3.6 g/dLNormal 3.4-5.0The [place] [facility] HospitalComment on above:Performed By: #### POCGLUC #### [facility] [address] [place] [address] Dr. Davidson SaundersAlbumin/Globulin [Mass ratio]0.9 {ratio}NormalThe Select Medical [facility] Rehabilitation Hospitalment on above:Performed By: #### POCGLUC #### [facility] [address] [place] [address] Dr. Davidson SaundersALP [Catalytic activity/Vol]105 U/ZCntddo70-632Btz [facility] HospitalComment on above:Performed By: #### POCGLUC #### [facility] [address] [address] [address] Davidson Caraballo [Catalytic activity/Vol]20 U/QSuqvej49-05Iek [facility] HospitalComment on above:Performed By: #### POCGLUC #### [facility] [address] [address] [address] Davidson Cohenon gap [Moles/Vol]17.1 mmol/LNormalSelect Medical Specialty Hospital - [place] Comment on above:Performed By: #### POCGLUC #### [facility] [address] [address] [address] Davidson SaundersAST [Catalytic activity/Vol]15 U/QMlgxic17-04Hob [facility] HospitalComment on above:Performed By: #### POCGLUC #### [facility] [address] [address] [address] Davidson SaundersBilirubin [Mass/Vol]0.3 mg/dLNormal0.2-1.0[facility] [place] Comment on above:Performed By: #### POCGLUC #### [facility] [address] [address] [address] Davidson SaundersCalcium [Mass/Vol]9.3 mg/dLNormal8.5-10.1[facility] [place] Comment on above:Performed By: #### POCGLUC #### [facility] [address] [address] [address] Davidson SaundersChloride [Moles/Vol]103 mmol/FJtxngm03-985WujSelect Medical Specialty Hospital - [place] Comment on above:Performed By: #### POCGLUC #### [facility] [address] [address] [address] Davidson SaundersCO2 [Moles/Vol]25.0 mmol/NWriizn07.0-32.0The [facility] Comment on above:Performed By: #### POCGLUC #### [facility] [address] [address] [address] Davidson SaundersCreatinine [Mass/Vol]1.36 mg/dLCritically high0.55-1.02[facility] Hospital - YoungstownComment on above:Performed By: #### POCGLUC #### [facility] [address] [address] [address] Davidson GuillaumeGFR-AF GCFRJEWE88 mL/min/1.67x3Wvtjrqlykj low>=60The [place] [facility] HospitalComment on above:Performed By: #### POCGLUC #### [facility] [address] [address] [address] Davidson GuillaumeGFR-NON AF IQHOIRMU11 mL/min/1.07d0Xbtjjnyrwg low>=60The [place] [facility] HospitalComment on above:Performed By: #### POCGLUC #### [facility] [address] [place] [address] Dr. Davidson SaundersGlobulin (S) [Mass/Vol]4.0 g/dLNormalThSouthwest General Health CenterComment on above:Performed By: #### POCGLUC #### [facility] [address] [place] [address] Dr. Davidson SaundersGlucose [Mass/Vol]103 mg/nTPoqaiq69-859HsaSelect Medical Specialty Hospital - [place] Comment on above:Performed By: #### POCGLUC #### [facility] [address] [place] [address] Dr. Davidson SaundersPotassium [Moles/Vol]4.1 mmol/LNormal3.5-5.1[facility] [place] Comment on above:Performed By: #### POCGLUC #### [facility] [address] [place] [address] Dr. Davidson SaundersProtein [Mass/Vol]7.6 g/dLNormal6.4-8.2The [facility] Comment on above:Performed By: #### POCGLUC #### [facility] [address] [place] [address] Dr. Davidson SaundersSodium [Moles/Vol]141 mmol/NLctsuv909-738Poi [facility] Comment on above:Performed By: #### POCGLUC #### [facility] [address] [address] [address] Davidson SaundersUrea nitrogen [Mass/Vol]19.0 mg/dLCritically high7.0-18.0The [place] [facility] HospitalComment on above:Performed By: #### POCGLUC #### [facility] [address] [address] [address] Davidson Sawyer nitrogen/Creatinine [Mass ratio]14.0 mg/mgNoMercy Health Allen HospitalComment on above:Performed By: #### POCGLUC #### [facility] [address] [address] [address] Davidson Dodson 02-85-2825GEA6.403 uIU/mLNormal0.358-3.740The [place] [facility] HospitalComment on above:Performed By: #### POCGLUC #### [facility] [address] [address] [address] Davidson Rodriguez MICROSCOPIC ONLYon 72-83-1272QEXGIMUVDRBMWZquuajizOIDO SEEN The [place] [facility] HospitalComment on above:Performed By: #### TAVO RO ####[facility] Oxcpjkgseu2262 [address] Davidson SaundersBacteria identified Cx Nom (U)INDICATEDSycamore Medical Center Comment on above:Performed By: #### TAVO RO ####[facility] Tfewipyqkt78[address] Davidson ChangCASTNONE SEEN NormalNONE SEENSelect Medical Specialty Hospital - YoungstownComment on above:Performed By: #### TAVO RO ####[facility] [address] [address]Dr. Davidson SaundersCrystals LM Nom (Urine sed)NONE SEENNormalNONE SEENSelect Medical Specialty Hospital - YoungstownComascension borgess allegan hospital on above:Performed By: #### CHARO RORO ####[facility] [address] [address]Dr. Davidson Saunders Epithelial cells LM Ql (Urine sed)RARENormalNONE SEEN /RARESelect Medical Specialty Hospital - [place] Comment on above:Performed By: #### CHARO RORO ####[facility] Tsoojblwlq0982 [address] Davidson SaundersMUCOUSNONE SEEN NormalNONE SEENThe [place] [facility] HospitalComment on above:Performed By: #### TAVO RO ####[facility] Ogaejustbs[address] [place], [place] [address]Bw. Davidson HxlnxCZE3-1Sqnxjc0-7Zth [facility] HospitalComment on above: Performed By: #### TAVO RO ####[facility] Axnrqrsrki[address] [place], [place]Dr. Davidson WrmnoAPF84-10EmqiklqnGDPB SEENThe [place] [facility] HospitalComment on above:Performed By: #### TAVO RO ####[facility] Joclbnklaw[address] [place], [place]Dr. Davidson Sinclair CAROTID ART BILon [id number] CAROTID ART BILEXAMINATION: US CAROTID ART KWAME [...] Electronically authenticated by: ABHI BECERRIL Date: 2021-12-30 07:[address] [place], [place] [address]XR CHEST 2 Von [id number] CHEST 2 VEXAMINATION: XR CHEST 2 V [...] Electronically authenticated by: ABHI CARO Date: 2021-12-29 22:00Sycamore Medical CenterCARDIAC DIEGO ADMITon 90-19-6791HC [Catalytic activity/Vol]48 U/UTjqkid33-889Tlw [facility] HospitalComment on above:Performed By: #### A1C #### [facility] [address] [place] [address] Dr. Davidson Le.MB [Mass/Vol]0.92 ng/mLNormal<=3.60[facility] [place] Comment on above:Performed By: #### A1C #### [facility] [address] [place] [address] Dr. Davidson SaundersHSTROP15.6 pg/mLNormal4.0-51.3The [place] [facility] HospitalComment on above:Result Comment: CUT-OFF POINTS HAVE BEEN ESTABLISHED BASED ON THE FOURTH UNIVERSAL DEFINITIONS OF MYOCARDIAL INFARCTION. THE UPPER REFERENCE LIMIT (URL) OF TROPONIN, DEFINED THE 99TH PERCENTILE OF cTnI DISTRIBUTION IN A REFERENCE POPULATION, HAS BEEN CONFIRMED THE DECISION THRESHOLD FOR MS DIAGNOSIS.Performed By: #### A1C #### [facility] [address] [place] [address] Dr. Davidson CrystalO57 ng/mLNormal9-82The [place] [facility] HospitalComment on above: Performed By: #### A1C #### [facility] [address] [place] [address] Dr. Davidson Barroso AUTO DIFFon 85-90-1559VQAZ #0.1 103/ulNormal0.0-0.1The [place] [facility] HospitalComment on above:Performed By: #### CBC ####[facility] [address]wk[address] [address]Dr.Yilan SaundersBasophils/100 WBC (Bld)0.4 %Normal0.2-2.0The [place] [facility] HospitalComment on above:Performed By: #### CBC ####[facility] Bmanclfwhw[address] [place], [place] [address]Dr.Davidson ChangEO #0.1 103/ulNormal0.0-0.7The [place] [facility] HospitalComment on above:Performed By: #### CBC ####[facility] Znhowfbqjt[address] [place], [place] [address]Dr.Davidson ChangEosinophils/100 WBC (Bld)1.0 %Normal 0.9-7.0The [facility] HospitalComment on above:Performed By: #### CBC ####[facility] Ubhmamkyug[address] [place], [place] [address]Dr.Davidson Saunders Erythrocyte distribution width (RBC) [Ratio]13.2 %Fwcaec04.0-15.0The [place] [facility] HospitalComment on above:Performed By: #### CBC ####[facility] Gbmwopehpg[address] [place], [place] [address]Dr.Davidson ChangHematocrit (Bld) [Volume fraction]31.6 %Critically low36.0-48.0The [place] [facility] HospitalComment on above:Performed By: #### CBC ####[facility] Ehcrvgzcro[address] [place], [place] [address]Dr.Davidson ChangHemoglobin (Bld) [Mass/Vol]10.5 g/dL Critically low12.0-16.0The [place] [facility] HospitalComment on above:Performed By: #### CBC ####[facility] Opkkkjgtse[address] [place], [place] [address]Dr. Davidson ChangIG #0.04 10e3/ulCritically high0.00-0.03The [place] [facility] HospitalComment on above:Performed By: #### CBC ####[facility] Nhuwxigwds[address] [place], [place] [address]Dr.Davidson ChangIG %0.4 %Normal0.0-0.5The [place] [facility] HospitalComment on above:Performed By: #### CBC ####[facility] Grnsarqbuy[address] [place], [place] [address]Dr.Davidson SaundersLYH #1.6 103/ulNormal1.2-3.8The [place] [facility] HospitalComment on above:Performed By: #### CBC ####[facility] [address]ax[address] [address]Dr. Davidson SaundersLymphocytes/100 WBC (Bld)14.1 %Critically low20.5-60.0The [place] [facility] HospitalComment on above:Performed By: #### CBC ####[facility] [address]avbjj[address] [address]Dr.Davidson SaundersMANUAL DIFF REQ NONormalThe [place] [facility] HospitalComment on above:Performed By: #### CBC ####[facility] Yqyhapfexc[address] [place], [place] [address]Dr. Davidson SaundersH (RBC) [Entitic mass]28.0 twLynhdt57.7-34.0The [facility] Comment on above:Performed By: #### CBC ####[facility] Xciangfhfw[address] [place], [place] [address]Dr.Davidson SaundersHC (RBC) [Mass/Vol]33.2 g/dL Doojwn41.9-35.2The [place] [facility] HospitalComment on above:Performed By: #### CBC ####[facility] Wsfmaskzgh[address] [place], [place] [address]Dr. Davidson SaundersV (RBC) [Entitic vol]84.3 zLXjwijc10.0-99.0The [facility] Comment on above:Performed By: #### CBC ####[facility] Uaovcygbab[address] [place], [place] [address]Dr.Davidson SaundersMONO #1.0 103/ulCritically high0.3-0.8The [place] [facility] HospitalComment on above:Performed By: #### CBC ####[facility] Gssfpkuwcb[address] [place], [place] [address]Dr. Davidson SaundersMonocytes/100 WBC (Bld)9.0 %Normal1.7-12.0The [facility] Comment on above:Performed By: #### CBC ####[facility] [address] [id number].Davidson SaundersNEUT #8.4 103/ulCritically high1.4-6.5The [place] [facility] HospitalComment on above:Performed By: #### CBC ####[facility] [address]ubu[address] [address]Dr. Davidson SaundersNeutrophils/100 WBC (Bld)75.1 %Critically high43.0-75.0The [place] [facility] HospitalComment on above:Performed By: #### CBC ####[facility] [address]ikx[address] [address]Dr.Davidson SaundersPlatelet mean volume (Bld) [Entitic vol]9.0 fLCritically low9.5-13.5The [facility] Comment on above:Performed By: #### CBC ####[facility] T[address]agmln[address] [address]Dr.Davidson SaundersPLT257 103/qmRzhrav112-514Eds [facility] HospitalComment on above:Performed By: #### CBC ####[facility] [address]tcrwtie[address] [address]Dr.Davidson SaundersRBC3.75 106/ul Critically low4.20-5.40The [place] [facility] HospitalComment on above:Performed By: #### CBC ####[facility] [address] [address]Dr. Davidson SaundersWBC11.2 103/ulCritically high4.0-11.0The [place] [facility] HospitalComment on above:Performed By: #### CBC ####[facility] [address]renph[address] [address]DrRafita SaundersPROF CHEM 8 (BAS METB)on 56-14-3353Tkndz gap [Moles/Vol]9.9 mmol/LNormalThe [place] [facility] HospitalComment on above:Performed By: #### A1C #### [facility] [address] [address] [address] Davidson SaundersCalcium [Mass/Vol]9.5 mg/dLNormal8.5-10.1[facility] [place] Comment on above:Performed By: #### A1C #### [facility] [address] [address] [address] Davidson SaundersChloride [Moles/Vol]101 mmol/PZfwlbt80-443Qsv [facility] Comment on above:Performed By: #### A1C #### [facility] [address] [address] [address] Davidson SaundersCO2 [Moles/Vol]28.0 mmol/QArxfqs49.0-32.0The [facility] Comment on above:Performed By: #### A1C #### [facility] [address] [address] [address] Davidson SaundersCreatinine [Mass/Vol]1.41 mg/dLCritically high0.55-1.02The [place] [facility] HospitalComment on above:Performed By: #### A1C #### [facility] [address] [address] [address] Davidson GuillaumeGFR-AF IXKTZRWY13 mL/min/1.67e2Zyazrbqnbq low>=60The [place] [facility] HospitalComment on above:Performed By: #### A1C #### [facility] [address] [address] [address] Davidson GuillaumeGFR-NON AF GDRPPUJI92 mL/min/1.81m8Gompnbfxrf low>=60The [place] [facility] HospitalComment on above:Performed By: #### A1C #### [facility] [address] [address] [address] Davidson SaundersGlucose [Mass/Vol]130 mg/dLCritically pggq87-934Fru [facility] HospitalComment on above:Performed By: #### A1C #### [facility] [address] [address] [address] Davidson SaundersPotassium [Moles/Vol]3.9 mmol/LNormal3.5-5.1The [facility] Comment on above:Performed By: #### A1C #### [facility] [address] [address] [address] Davidson SaundersSodium [Moles/Vol]135 mmol/LCritically wjb082-916Ygv [facility] HospitalComment on above:Performed By: #### A1C #### [facility] [address] [address] [address] Davidson SaundersUrea nitrogen [Mass/Vol]20.0 mg/dLCritically high7.0-18.0The [place] [facility] HospitalComment on above:Performed By: #### A1C #### [facility] [address] [address] [address] Davidson SaundersUrea nitrogen/Creatinine [Mass ratio]14.2 mg/mgNoMercy Health Allen HospitalComment on above:Performed By: #### A1C #### [facility] [address] [address] [address] Davidson Baker T3on 95-80-2551FXCW T32.05 pg/mlLCritically low2.18-3.98The [place] [facility] HospitalComment on above:Performed By: #### FT3, TSH ####[facility] [address] [address]Dr. Davidson SaundersFREE T4on 49-08-1526Pyaa T4 [Mass/Vol]0.99 ng/dLNormal0.76-1.46The [facility] Comment on above:Performed By: #### FT4 ####[facility] [address] [address]Dr.Yilan SaundersGLYCOHEMOGLOBIN A1Con 64-88-2216UJX RECOMMENDATIONSEE BELOWSycamore Medical CenterComment on above:Result Comment: ADA RECOMMENDED LIMIT 4.0 - 6.0 ADA THERAPEUTIC TARGET < 7.0 ACTION SUGGESTED > 7.0Performed By: #### A1C #### [facility] [address] [address] [address] Davidson SaundersGlucose [Mass/Vol]134 mg/dLNoMercy Health Allen HospitalComment on above:Performed By: #### A1C #### [facility] [address] [address] [address] Davidson SaundersHbA1c (Bld) [Mass fraction]6.3 %Critically high4.5-6.2The [place] [facility] HospitalComment on above:Performed By: #### A1C #### [facility] [address] [place], [place] [address] Dr. Davidson Dodson 86-90-1076NXR1.994 uIU/mLNormal0.358-3.740The [place] [facility] HospitalComment on above:Performed By: #### FT3, TSH ####[facility] [address]ogsbenq[address] [place], [place] [address]UkDr. Cedeño Anita T3on 55-23-4907QQ42.29 pg/mLNormal2.00-4.40Nortbanner rehabilitation hospital westn [facility] SpecialistComment on above:Performed By: #### TSH, FT4, FT3 #### [facility] [address] [place], [place] [id number] T4on 97-99-7156Wthe T4 [Mass/Vol]1.70 ng/dLNormal 0.80-1.80Nortbanner rehabilitation hospital westn [facility] SpecialistComment on above:Performed By: #### TSH, FT4, FT3 #### [facility] [address] [place], [place] [id number] 33-39-0048VBN9.069 uIU/mLLow0.400-4.500NortFayette County Memorial Hospital SpecialistComment on above:Performed By: #### TSH, FT4, FT3 #### [facility] [address] [place], [place] [id number] Metabolic Panelon 46-64-3228Cblum gap [Moles/Vol]15 mmol/DUmbvss25-80Uwgithzs [facility] SpecialistComment on above:Result Comment: Effective 05/28/2019 reference range changed.Performed By: #### BMP #### [facility] [address] [place], [place] [id number] [Mass/Vol]9.7 mg/dLNormal8.6-10.2[facility] SpecialistComment on above:Performed By: #### BMP #### [facility] [address] [place], [place] [id number] [Moles/Vol]104 mmol/AStqwlh24-018Wkilhvym [place] Medical SpecialistComment on above:Performed By: #### BMP #### [facility] [address] [place], [place] [id number] [Moles/Vol]25 mmol/WOezbux26-82Rgeyiemb [place] [facility] SpecialistComment on above:Performed By: #### BMP #### [facility] [address] [place], [place] [id number] [Mass/Vol]1.5 mg/dLHigh0.6-1.4NoACMC Healthcare System SpecialistComment on above:Performed By: #### BMP #### [facility] [address], [place] [id number] mL/min/1.05i2Rnt>60[facility] Specialist Comment on above:Performed By: #### BMP #### [facility] [address], [place] [id number] mL/min/1.59z4Axk>60[facility] Specialist Comment on above:Performed By: #### BMP #### [facility] [address], [place] [id number] [Mass/Vol]137 mg/cKFycu66-99Kdehbjtu [place] [facility] SpecialistComment on above:Result Comment: For FASTING Glucose --- ADA reference ranges: Normal 65-99 mg/dl Prediabetes 100-125 Diabetes >/= 126Performed By: #### BMP #### [facility] [address] [place], [place] [id number] [Moles/Vol]4.3 mmol/LNormal3.5-5.5NoACMC Healthcare System SpecialistComment on above:Performed By: #### BMP #### [facility] [address] [place], [place] [id number] [Moles/Vol]140 mmol/XXbppyj629-280Nmmmolmm [place] [facility] SpecialistComment on above:Performed By: #### BMP #### [facility] [address] [place], [place] [id number] nitrogen [Mass/Vol]17 mg/dLNormal7-25[facility] SpecialistComment on above:Performed By: #### BMP #### [facility] [address] [facility]eneDur[facility], [place] [id number] CHEM 8 (BAS METB)on 33-86-7768Iqulz gap [Moles/Vol]13.6 mmol/LNormalThe [place] [facility] HospitalComment on above:Performed By: #### BMP ####[facility] Eogafenmym[address] [place], [place] [address]Dr. Yilan ChangCalcium [Mass/Vol]8.8 mg/dLNormal8.5-10.1The [place] [facility] HospitalComment on above:Performed By: #### BMP ####[facility] Cdqhzntybe[address] [place], [place] [address]Dr.Yilan ChangChloride [Moles/Vol]103 mmol/LNormal 98-107The [facility] HospitalComment on above:Performed By: #### BMP ####[facility] Dpgdpjrz[address] [place], [place] [address]Dr.Yilan ChangCO2 [Moles/Vol]25.5 mmol/AEnyokq86.0-30.0The [facility] HospitalComment on above: Performed By: #### BMP ####[facility] Hoqkvksrsz[address] [place], [place] [address]Dr.Yilan ChangCreatinine [Mass/Vol]1.80 mg/dL Critically high0.52-1.04The [facility] HospitalComment on above:Performed By: #### BMP ####[facility] Ecetpaqgwf[address] [place], [place] [address]Dr.Yilan ChangEGFR-AF OQPJLCFD52 mL/min/1.12k9Wprmbmhhgv low>=60The [facility] HospitalComment on above:Performed By: #### BMP ####[facility] Hjkzpsonmc[address] [place], [place] [address]Dr.Yilan ChangEGFR-NON AF LHJMHXIC28 mL/min/1.97a5Fiqbaqvncp low>=60The [facility] HospitalComment on above: Performed By: #### BMP ####[facility] Ckbufckcvr[address] [place], [place] [address]Dr.Yilan ChangGlucose [Mass/Vol]112 mg/dLCritically bidw34-670Etj [facility] HospitalComment on above:Performed By: #### BMP ####[facility] [address] [address]Dr. Davidson ChangPotassium [Moles/Vol]4.1 mmol/LNormal3.4-5.0The [facility] Comment on above:Performed By: #### BMP ####[facility] [address] [address]Dr.Davidson ChangSodium [Moles/Vol]138 mmol/L Izcuga552-916Ywk [facility] HospitalComment on above:Performed By: #### BMP ####[facility] Mpfayfdxld[address] [place], [place] [address]Dr. Davidson ChangUrea nitrogen [Mass/Vol]26.0 mg/dLCritically high7.0-18.0The [facility] HospitalComment on above:Performed By: #### BMP ####[facility] Dzssjj[address] [place], [place] [address]Dr.Davidson ChangUrea nitrogen/Creatinine [Mass ratio]14.4 mg/mgNormalThe [facility] HospitalComment on above:Performed By: #### BMP ####[facility] Froqkltcpa[address] [place], [place] [address]DrRafita JuddC AUTO DIFFon [id number] #0.1 103/ulNormal0.0-0.1The [facility] HospitalComment on above:Performed By: #### POCGLUC #### [facility] [address] [place] [address] Dr. Davidson SaundersBasophils/100 WBC (Bld)0.8 %Normal0.2-2.0The [facility] Comment on above:Performed By: #### POCGLUC #### [facility] [address] [place] [address] Dr. Cedeño ChangEElena #0.5 103/ulNormal0.0-0.7The [facility] HospitalComment on above: Performed By: #### POCGLUC #### [facility] [address] [place], [place] [id number] Dr. Davidson Guillaumeosinophils/100 WBC (Bld)5.4 %Normal0.9-7.0The [facility] Comment on above:Performed By: #### POCGLUC #### [facility] [address] [place] [address] Dr. Davidson Guillaumerythrocyte distribution width (RBC) [Ratio]12.6 %Wwczit46.0-15.0 The [facility] HospitalComment on above:Performed By: #### POCGLUC #### [facility] [address] [place] [address] Dr. Davidson SaundersHematocrit (Bld) [Volume fraction]31.6 %Critically low36.0-48.0 The [facility] HospitalComment on above:Performed By: #### POCGLUC #### [facility] [address] [place] [address] Dr. Davidson SaundersHemoglobin (Bld) [Mass/Vol]10.0 g/dLCritically low12.0-16.0The [facility] HospitalComment on above:Performed By: #### POCGLUC #### [facility] [address] [place] [address] Dr. Davidson SaundersIG #0.04 10e3/ulCritically high0.00-0.03The [facility] Comment on above:Performed By: #### POCGLUC #### [facility] [address] [place] [address] Dr. Davidson SaundersIG %0.5 %Normal0.0-0.5The [facility] HospitalComment on above: Performed By: #### POCGLUC #### [facility] [address] [place] [address] Dr. Davidson PayanH #2.8 103/ulNormal1.2-3.8The [facility] HospitalComment on above:Performed By: #### POCGLUC #### [facility] [address] [place] [address] Dr. Davidson Liumphocytes/100 WBC (Bld)31.1 %Uurony10.5-60.0The [facility] HospitalComment on above:Performed By: #### POCGLUC #### [facility] [address] [address] [address] Davidson Mena DIFF REQNONormalThe [facility] HospitalComment on above: Performed By: #### POCGLUC #### [facility] [address] [place] [address] Dr. Davidson Hernandez (RBC) [Entitic mass]28.6 ubCjxnwe74.7-34.0The [facility] HospitalComment on above:Performed By: #### POCGLUC #### [facility] [address] [place] [address] Dr. Davidson Hernandez (RBC) [Mass/Vol]31.6 g/lXPpetoc55.9-35.2The [facility] HospitalComment on above:Performed By: #### POCGLUC #### [facility] [address] [place] [address] Dr. Davidson Hernandez (RBC) [Entitic vol]90.3 zZGthqvb71.0-99.0The [facility] HospitalComment on above:Performed By: #### POCGLUC #### [facility] [address] [place] [address] Dr. Davidson Martin #0.7 103/ulNormal0.3-0.8The [facility] HospitalComment on above:Performed By: #### POCGLUC #### [facility] [address] [place] [address] Dr. Davidson Cooperocytes/100 WBC (Bld)7.5 %Normal1.7-12.0The [facility] Comment on above:Performed By: #### POCGLUC #### [facility] [address] [place] [address] Dr. Davidson Pedroza #4.9 103/ulNormal1.4-6.5The [facility] HospitalComment on above:Performed By: #### POCGLUC #### [facility] [address] [place] [address] Dr. Davidson Grahamutrophils/100 WBC (Bld)54.7 %Nqbdhy67.0-75.0The [facility] HospitalComment on above:Performed By: #### POCGLUC #### [facility] [address] [address] [address] Davidson SaundersPlatelet mean volume (Bld) [Entitic vol]8.6 fLCritically low 9.5-13.5The [facility] HospitalComment on above:Performed By: #### POCGLUC #### [facility] [address] [address] [address] Davidson SaundersPLT263 103/blYdhruu480-400Onc [facility] HospitalComment on above: Performed By: #### POCGLUC #### [facility] [address] [place] [address] Dr. Davidson SaundersRBC3.50 106/ulCritically low4.20-5.40The [facility] HospitalComment on above:Performed By: #### POCGLUC #### [facility] [address] [place] [address] Dr. Davidson SaundersWBC8.9 103/ulNormal4.0-11.0The [facility] HospitalComment on above: Performed By: #### POCGLUC #### [facility] [address] [place] [address] Dr. Davidson SaundersGLYCOHEMOGLOBIN A1Con 59-83-9126ZVH RECOMMENDATIONADA THERAPEUTIC TARGET 6.0 - 7.0 ACTION SUGGESTED > 7.0NoMercy Health Allen HospitalComment on above:Performed By: #### A1C #### [facility] [address] [place] [address] Dr. Davidson SaundersGlucose [Mass/Vol]128 mg/dLNoMercy Health Allen HospitalComment on above:Performed By: #### A1C #### [facility] [address] [place] [address] Dr. Davidson SaundersHbA1c (Bld) [Mass fraction]6.1 %Critically high<=6.0The [facility] HospitalComment on above:Performed By: #### A1C #### [facility] [address] [place] [address] Dr. Davidson SaundersLIPID PROFILEon 31-27-1422TRYL-HDL RATIO NORMSEE [facility] HospitalComment on above:Result Comment: 3.3 - 4.4 LOW RISK 4.4 - 7.1 AVERAGE RISK 7.1 - 11.0 MODERATE RISK >11.0 HIGH RISKPerformed By: #### A1C #### [facility] [address] [address] [address] Davidson SaundersCholesterol [Mass/Vol]139 mg/dLNormal<=200[facility] Comment on above:Performed By: #### A1C #### [facility] [address] [address] [address] Davidson SaundersCholesterol in HDL [Mass/Vol]47 mg/aWUwarss63-88FpySelect Medical Specialty Hospital - YoungstownComment on above:Performed By: #### A1C #### [facility] [address] [place] [address] Dr. Davidson SaundersCholesterol in LDL [Mass/Vol]57.0 mg/dLSycamore Medical CenterComment on above:Performed By: #### A1C #### [facility] [address] [address] [address] Davidson Jarrell.total/Cholesterol in HDL [Mass ratio]3.0 {ratio} NormalSelect Medical Specialty Hospital - YoungstownComment on above:Performed By: #### A1C #### [facility] [address] [place] [address] Dr. Davidson Garcia NORMAL> or = 60 mg/dl - LOW CARDIOVASCULAR RISK <40 mg/dl - HIGH CARDIOVASCULAR RISKSycamore Medical CenterComment on above:Performed By: #### A1C #### [facility] [address] [address] [address] Davidson SaundersLDL CALC NORMALSEE [facility] HospitalComment on above:Result Comment: <100 mg/dl OPTIMAL 100 - 129 mg/dl NEAR OR ABOVE OPTIMAL 130 - 159 mg/dl BORDERLINE HIGH 160 - 189 mg/dl HIGH >190 mg/dl VERY HIGH Performed By: #### A1C #### [facility] [address] [place] [address] Dr. Yilan ChangTriglyceride [Mass/Vol]175 mg/dLCritically high<=150The [facility] HospitalComment on above:Performed By: #### A1C #### [facility] [address] [place] [address] Dr. Davidson SaundersVLDL CALC35.0 mg/dLNormalThe [facility] HospitalComment on above: Performed By: #### A1C #### [facility] [address] [place] [address] Dr. Davidson SaundersPROF 14(COMP METB)on 77-27-8506Rbdvvwr [Mass/Vol]3.4 g/dLNormal 3.4-5.0The [facility] HospitalComment on above:Performed By: #### A1C #### [facility] [address] [place] [address] Dr. Davidson SaundersAlbumin/Globulin [Mass ratio]0.9 {ratio}NormalThe [facility] HospitalComment on above:Performed By: #### A1C #### [facility] [address] [place] [address] Dr. Davidson MerchantP [Catalytic activity/Vol]104 U/BMtadun37-439Adk [facility] HospitalComment on above:Performed By: #### A1C #### [facility] [address] [place] [address] Dr. Davidson Caraballo [Catalytic activity/Vol]21 U/NGgwstp47-03Vni [facility] HospitalComment on above:Performed By: #### A1C #### [facility] [address] [place] [address] Dr. Davidson Sorto gap [Moles/Vol]13.1 mmol/LNormalThe [facility] on above:Performed By: #### A1C #### [facility] [address] [place] [address] Dr. Davidson SaundersAST [Catalytic activity/Vol]12 U/LCritically dqo36-27Wpr [facility] HospitalComment on above:Performed By: #### A1C #### [facility] [address] [place] [address] Dr. Davidson SaundersBilirubin [Mass/Vol]0.3 mg/dLNormal0.2-1.3The [facility] Comment on above:Performed By: #### A1C #### [facility] [address] [place] [address] Dr. Davidson SaundersCalcium [Mass/Vol]9.4 mg/dLNormal8.5-10.1The [facility] Comment on above:Performed By: #### A1C #### [facility] [address] [place] [address] Dr. Davidson SaundersChloride [Moles/Vol]108 mmol/LCritically thle18-687Jji [facility] HospitalComment on above:Performed By: #### A1C #### [facility] [address] [place] [address] Dr. Davidson SaundersCO2 [Moles/Vol]26.4 mmol/IPcjuth86.0-30.0The [facility] Comment on above:Performed By: #### A1C #### [facility] [address] [place] [address] Dr. Davidson SuandersCreatinine [Mass/Vol]1.59 mg/dLCritically high0.52-1.04[facility] YoungstownComment on above:Performed By: #### A1C #### [facility] [address] [place] [address] Dr. Davidson GuillaumeGFR-AF LIYVWWKH60 mL/min/1.32i1Wyqchvetfy low>=60The [facility] HospitalComment on above:Performed By: #### A1C #### [facility] [address] [place] [address] Dr. Davidson GuillaumeGFR-NON AF NNMFMJMV06 mL/min/1.91y6Pijvbuemiu low>=60The [facility] HospitalComment on above:Performed By: #### A1C #### [facility] [address] [place] [address] Dr. Davidson SaundersGlobulin (S) [Mass/Vol]3.8 g/dLNormalThe [facility] HospitalComment on above:Performed By: #### A1C #### [facility] [address] [place] [address] Dr. Davidson SaundersGlucose [Mass/Vol]86 mg/yPVpcrqe44-052DclSelect Medical Specialty Hospital - [place] Comment on above:Performed By: #### A1C #### [facility] [address] [place] [address] Dr. Davidson SaundersPotassium [Moles/Vol]5.5 mmol/LCritically high3.4-5.0The [facility] HospitalComment on above:Performed By: #### A1C #### [facility] [address] [place] [address] Dr. Davidson SaundersProtein [Mass/Vol]7.2 g/dLNormal6.1-8.2[facility] Comment on above:Performed By: #### A1C #### [facility] [address] [place] [address] Dr. Davidson Roblesdium [Moles/Vol]142 mmol/JOkxmpf153-168OitSelect Medical Specialty Hospital [facility] [place] Comment on above:Performed By: #### A1C #### [facility] [address] [place] [address] Dr. Davidson SaundersUrea nitrogen [Mass/Vol]20.0 mg/dLCritically high7.0-18.0The [facility] HospitalComment on above:Performed By: #### A1C #### [facility] [address] [place] [address] Dr. Davidson Sawyer nitrogen/Creatinine [Mass ratio]12.6 mg/mgNormalThe [facility] HospitalComment on above:Performed By: #### A1C #### [facility] [address] [place] [address] Dr. Davidson Barroso AUTO DIFFon [id number] #0.1 103/ulNormal0.0-0.1The [facility] HospitalComment on above:Performed By: #### CBC #### [facility] [address] [place] [address] Dr. Davidson SaundersBasophils/100 WBC (Bld)0.7 %Normal0.2-2.0The [facility] Comment on above:Performed By: #### CBC #### [facility] [address] [place] [address] Dr. Davidson Root #0.3 103/ulNormal0.0-0.7The [facility] HospitalComment on above: Performed By: #### CBC #### [facility] [address] [place] [address] Dr. Davidson Guillaumeosinophils/100 WBC (Bld)3.3 %Normal0.9-7.0The [facility] Comment on above:Performed By: #### CBC #### [facility] [address] [place] [address] Dr. Davidson Guillaumerythrocyte distribution width (RBC) [Ratio]13.0 %Nivcdo64.0-15.0 The [facility] HospitalComment on above:Performed By: #### CBC #### [facility] [address] [place] [address] Dr. Davidson SaundersHematocrit (Bld) [Volume fraction]30.2 %Critically low36.0-48.0 The [facility] HospitalComment on above:Performed By: #### CBC #### [facility] [address] [place] [address] Dr. Davidson SaundersHemoglobin (Bld) [Mass/Vol]9.8 g/dLCritically low12.0-16.0The [facility] HospitalComment on above:Performed By: #### CBC #### [facility] [address] [place] [address] Dr. Davidson Leon #0.04 10e3/ulCritically high0.00-0.03The [facility] Comment on above:Performed By: #### CBC #### [facility] [address] [place] [address] Dr. Davidson Leon %0.4 %Normal0.0-0.5The [facility] HospitalComment on above: Performed By: #### CBC #### [facility] [address] [place] [address] Dr. Davidson Alan #2.9 103/ulNormal1.2-3.8The [facility] HospitalComment on above:Performed By: #### CBC #### [facility] [address] [place] [address] Dr. Davidson Liumphocytes/100 WBC (Bld)31.0 %Cydqhs37.5-60.0The [facility] Hospitalment on above:Performed By: #### CBC #### [facility] [address] [place] [address] Dr. Davidson ForresterUAL DIFF REQNONormalThe [facility] HospitalComment on above: Performed By: #### CBC #### [facility] [address] [place] [address] Dr. Davidson Hernandez (RBC) [Entitic mass]28.5 xmFmjewl54.7-34.0The [facility] HospitalComment on above:Performed By: #### CBC #### [facility] [address] [place] [address] Dr. Davidson Hernandez (RBC) [Mass/Vol]32.5 g/oLAvwaep21.9-35.2The [facility] HospitalComment on above:Performed By: #### CBC #### [facility] [address] [place] [address] Dr. Davidson Hernandez (RBC) [Entitic vol]87.8 oJLumqms61.0-99.0The [facility] HospitalComment on above:Performed By: #### CBC #### [facility] [address] [place] [address] Dr. Davidson Martin #0.7 103/ulNormal0.3-0.8The [facility] HospitalComment on above:Performed By: #### CBC #### [facility] [address] [place] [address] Dr. Davidson Cooperocytes/100 WBC (Bld)7.8 %Normal1.7-12.0The [facility] Comment on above:Performed By: #### CBC #### [facility] [address] [place] [address] Dr. Davidson Pedroza #5.2 103/ulNormal1.4-6.5The [facility] HospitalComment on above:Performed By: #### CBC #### [facility] [address] [address] [address] Davidson SaundersNeutrophils/100 WBC (Bld)56.8 %Xggavr37.0-75.0The [facility] HospitalComment on above:Performed By: #### CBC #### [facility] [address] [address] [address] Davidson Salguerolet mean volume (Bld) [Entitic vol]10.2 fLNormal9.5-13.5The [facility] HospitalComment on above:Performed By: #### CBC #### [facility] [address] [place] [address] Dr. Davidson SaundersPLT227 103/pqYkbqvd596-131Zqb [facility] HospitalComment on above: Performed By: #### CBC #### [facility] [address] [place] [address] Dr. Davidson SaundersRBC3.44 106/ulCritically low4.20-5.40The [facility] HospitalComment on above:Performed By: #### CBC #### [facility] [address] [place] [address] Dr. Davidson SaundersWBC9.2 103/ulNormal4.0-11.0The [facility] HospitalComment on above: Performed By: #### CBC #### [facility] [address] [place] [address] Dr. Cedeño ChangECHOCARDIElena M/2D COMPLETEon [id number] M/2D COMPLETE Patient: ELEANOR MCCLAIN Exam Date: 08/12/2021 : 1950 Gender:F Ordering : DR. ALIYAH ROACH . Admission #: [id number] Family : DR GRAYSON HERNANDEZ . Order #: [id number] CLICK HERE TO VIEW EXAM ECHOCARDIOGRAM REPORT [...] by: Rod Mcfadden M.D. on 08/12/2021 at 17:13[facility]A HEAD WO CONon [id number] HEAD WO CONEXAMINATION: MRA HEAD WO CON HISTORY: H/O: TIA COMPARISON: None. TECHNIQUE: MR angiogram of the head was obtained with 3D yylv-vk-ucbiil technique. Maximum intensity projection images of the [...] Electronically authenticated by: MANJEET GREENFIELD Date: 2021-08-12 15:[facility] CenterA NECK WO CONon [id number] NECK WO CONEXAMINATION: MRA NECK WO CON HISTORY: H/O: TIA. Dizziness, history of stroke. COMPARISON: None. TECHNIQUE: MR angiogram of the neck was obtained with axial 2-D and 3-D mlzd-he-cwtsaw technique. Maximum intensity projection images were obtained. FINDINGS: Aortic arch is not included in the ecbnd-sp-bjgp. Narrowing of the origin of the right [...] Electronically authenticated by: MANJEET GREENFIELD Date: 2021-08-12 15:[facility] BRAIN WO CONon 97-37-1016YWV BRAIN WO CONEXAMINATION: MRI BRAIN WO CON, [...] Electronically authenticated by: ABHI BECERRIL Date: 2021-08-12 15:22[facility] CenterPROF 14(COMP METB)on 55-79-3418Meovbrx [Mass/Vol]3.4 g/dLNormal 3.4-5.0[facility] YoungstownComment on above:Performed By: #### CMP ####[facility] [address] [place], [place] [address]Dr.Davidson Saunders Albumin/Globulin [Mass ratio]1.0 {ratio}NormalThe [facility] HospitalComment on above:Performed By: #### CMP ####[facility] Sagv[address]cuus[address] [place], [place] [address]Dr.Davidson SaundersALP [Catalytic activity/Vol]101 U/L Lxowtf62-523Ums [facility] HospitalComment on above:Performed By: #### CMP ####[facility] Bhpssyy[address] [place], [place] [address]Dr. Davidson ChangALT [Catalytic activity/Vol]21 U/KWfhoat69-89Sme [facility] Comment on above:Performed By: #### CMP ####[facility] Bnnnckouuz[address] [place], [place] [address]Dr.Davidson SaundersAnion gap [Moles/Vol]12.6 mmol/LNormalThe [facility] HospitalComment on above:Performed By: #### CMP ####[facility] [address]qx[address] [place], [place] [address]Dr. Davidson ChangAST [Catalytic activity/Vol]18 U/LWwpmui89-20Wik [facility] Comment on above:Performed By: #### CMP ####[facility] [address] [address]Dr.Yilan ChangBilirubin [Mass/Vol]0.2 mg/dL Normal0.2-1.3The [facility] HospitalComment on above:Performed By: #### CMP ####[facility] Zefc[address] [place], [place] [address]Dr. Yilan ChangCalcium [Mass/Vol]9.0 mg/dLNormal8.5-10.1The [facility] HospitalComment on above:Performed By: #### CMP ####[facility] [address] [place], [place] [address]Dr.Yilan ChangChloride [Moles/Vol]107 mmol/LNormal 98-107The [facility] HospitalComment on above:Performed By: #### CMP ####[facility] [address] [place], [place] [address]Dr.Yilan ChangCO2 [Moles/Vol]27.6 mmol/BNkzeti31.0-30.0The [facility] HospitalComment on above: Performed By: #### CMP ####[facility] Byusrbiabb[address] [place], [place] [address]Dr.Yilan ChangCreatinine [Mass/Vol]1.61 mg/dL Critically high0.52-1.04The [facility] HospitalComascension borgess allegan [facility] on above:Performed By: #### CMP ####[facility] [address] [place], [place] [address]Dr.Yilan ChangEGFR-AF DWEKGYBY54 mL/min/1.82q3Rzmuvabtit low>=60The [facility] HospitalComment on above:Performed By: #### CMP ####[facility] [address] [address] [place], [place] [address]Dr.Yilan ChangEGFR-NON AF YXMJGPJT30 mL/min/1.44t8Htmkmtfrnx low>=60The [facility] HospitalComascension [facility]org[facility] on above: Performed By: #### CMP ####[facility] [address] [place], [place] [address]Dr.Yilan ChangGlobulin (S) [Mass/Vol]3.5 g/dLNormalThe [facility] HospitalComment on above:Performed By: #### CMP ####[facility] [address] [id number].Yilan ChangGlucose [Mass/Vol]93 mg/cWVnwskf43-642Nhw [facility] HospitalComment on above:Performed By: #### CMP ####[facility] [address] [id number].Yilan ChangPotassium [Moles/Vol]5.2 mmol/LCritically high3.4-5.0The [facility] HospitalComment on above:Performed By: #### CMP ####[facility] [address] [id number].Yilan ChangProtein [Mass/Vol]6.9 g/dLNormal6.1-8.2The [facility] HospitalComment on above:Performed By: #### CMP ####[facility] [address] [place], [place] [address]Dr.Yilan ChangSodium [Moles/Vol]142 mmol/ARekbno545-266Moi [facility] HospitalComment on above:Performed By: #### CMP ####[facility] [address] [id number].Yilan ChangUrea nitrogen [Mass/Vol]24.0 mg/dLCritically high7.0-18.0The [facility] HospitalComment on above:Performed By: #### CMP ####[facility] [address] [place], [place] [address]Dr.Yilan ChangUrea nitrogen/Creatinine [Mass ratio] 14.9 mg/mgNormalThe [facility] HospitalComment on above:Performed By: #### CMP ####[facility] [address] [place], [place] [address]Dr. Davidson ChangUS CAROTID ART BILon [id number] CAROTID ART BILEXAMINATION: US CAROTID ART KWAME [...] Electronically authenticated by: ABHI BECERRIL Date: 2021-08-12 13:09NoMercer [facility] AUTO DIFFon [id number] #0.1 103/ulNormal0.0-0.1The [facility] HospitalComment on above:Performed By: #### A1C #### [facility] [address] [place] [address] Dr. Davidson SaundersBasophils/100 WBC (Bld)0.9 %Normal0.2-2.0[facility] Comment on above:Performed By: #### A1C #### [facility] [address] [place] [address] Dr. Davidson Root #0.3 103/ulNormal0.0-0.7The [facility] HospitalComment on above: Performed By: #### A1C #### [facility] [address] [place] [address] Dr. Davidson Guillaumeosinophils/100 WBC (Bld)3.1 %Normal0.9-7.0The [facility] Comment on above:Performed By: #### A1C #### [facility] [address] [place] [address] Dr. Davidson Guillaumerythrocyte distribution width (RBC) [Ratio]12.8 %Vuemjp77.0-15.0 The [facility] HospitalComment on above:Performed By: #### A1C #### [facility] [address] [address] [address] Davidson SaundersHematocrit (Bld) [Volume fraction]32.8 %Critically low36.0-48.0 The [facility] HospitalComment on above:Performed By: #### A1C #### [facility] [address] [address] [address] Davidson SaundersHemoglobin (Bld) [Mass/Vol]11.1 g/dLCritically low12.0-16.0The [facility] HospitalComment on above:Performed By: #### A1C #### [facility] [address] [place] [address] Dr. Davidson SaundersIG #0.06 10e3/ulCritically high0.00-0.03The [facility] Comment on above:Performed By: #### A1C #### [facility] [address] [place] [address] Dr. Davidson SaundersIG %0.5 %Normal0.0-0.5The [facility] HospitalComment on above: Performed By: #### A1C #### [facility] [address] [address] [address] Davidson Alan #2.6 103/ulNormal1.2-3.8The [facility] HospitalComment on above:Performed By: #### A1C #### [facility] [address] [place] [address] Dr. Davidson Liumphocytes/100 WBC (Bld)23.6 %Koiiax78.5-60.0The [facility] HospitalComment on above:Performed By: #### A1C #### [facility] [address] [place] [address] Dr. Davidson SaundersMANUAL DIFF REQNONormalThe [facility] HospitalComment on above: Performed By: #### A1C #### [facility] [address] [place] [address] Dr. Davidson Purvis (RBC) [Entitic mass]29.2 xaCyuqiy42.7-34.0The [facility] HospitalComment on above:Performed By: #### A1C #### [facility] [address] [address] [address] Davidson HernandezHC (RBC) [Mass/Vol]33.8 g/eIFlhbqa08.9-35.2The [facility] HospitalComment on above:Performed By: #### A1C #### [facility] [address] [address] [address] Davidson HernandezV (RBC) [Entitic vol]86.3 lRFsaypv16.0-99.0The [facility] HospitalComment on above:Performed By: #### A1C #### [facility] [address] [place] [address] Dr. Davidson Martin #0.9 103/ulCritically high0.3-0.8The [facility] Comment on above:Performed By: #### A1C #### [facility] [address] [place] [address] Dr. Davidson Cooperocytes/100 WBC (Bld)7.9 %Normal1.7-12.0[facility] Comment on above:Performed By: #### A1C #### [facility] [address] [place] [address] Dr. Davidson Pedroza #7.1 103/ulCritically high1.4-6.5ThSouthwest General Health Center Comment on above:Performed By: #### A1C #### [facility] [address] [place] [address] Dr. Davidson Grahamutrophils/100 WBC (Bld)64.0 %Gdpnml86.0-75.0The [facility] HospitalComment on above:Performed By: #### A1C #### [facility] [address] [place] [address] Dr. Davidson Salguerolet mean volume (Bld) [Entitic vol]8.7 fLCritically low 9.5-13.5The [facility] HospitalComment on above:Performed By: #### A1C #### [facility] [address] [place] [address] Dr. Davidson SaundersPLT312 103/ocShatlo414-204Zik Gustavo HospitalComment on above: Performed By: #### A1C #### [facility] [address] [address] [address] Davidson SaundersRBC3.80 106/ulCritically low4.20-5.40The [facility] HospitalComment on above:Performed By: #### A1C #### [facility] [address] [address] [address] Davidson SaundersWBC11.1 103/ulCritically high4.0-11.0The [facility] HospitalComment on above:Performed By: #### A1C #### [facility] [address] [address] [address] Davidson SaundersCT STROKE HEAD WOon [id number] STROKE HEAD WOEXAMINATION: CT STROKE HEAD WO [...] Electronically authenticated by: MARTHA JUNIOR Date: 2021-08-11 16:43[facility] HospitalCULTURE URINEon [id number] URINECulture Observations: MODERATE GROWTH OF MIXED GENITAL ROSEANNA. NO POTENTIAL PATHOGENS SEEN.NormalThe [facility] HospitalComment on above:Performed By: #### URCX #### [facility] [address] [place] [address] Dr. Davidson Rico-19 PCR (CVDTB)on 85-25-6233WQEG-CoV-2 (COVID-19) RNA SAE+probe Ql (Unsp spec)Not detectedNormalNOT DETECTEDSelect [facility] Comment on above:Result Comment: This test is not yet approved or cleared by the [place] FDA. When there are no FDA-approved or cleared tests available, and other criteria are met, FDA can make tests available under an emergency access mechanism called an Emergency Use Authorization (EUA). The EUA for this test is supported by the [employer] of Health and Human Service's (HHS's) declaration [...] symptoms consistent with SARS-CoV-2.Performed By: #### CVDTBH ####[facility] [address] [address]Dr. Davidson Valdivia URINE PROFILEon 19-12-1103Aphhyqkru Ql (U)NegativeNormalNEGATIVESelect [facility] Comment on above:Performed By: #### A1C #### [facility] [address] [place] [address] Dr. Davidson Beltre (U)CLEARNormalCLEARSelect Medical Specialty Hospital - YoungstownComment on above: Performed By: #### A1C #### [facility] [address] [address] [address] Davidson Holcomb (U)LT. YELLOWNormalYELLOWSelect Medical Specialty Hospital - YoungstownComment on above:Performed By: #### A1C #### [facility] [address] [place] [address] Dr. Davidson Bloom micrscopic examination will be performed if indicated. NormalThe [facility] HospitalComment on above:Performed By: #### A1C #### [facility] [address] [address] [address] Davidson SaundersGlucose Ql (U)NegativeNormalNEGATIVESelect Medical Specialty Hospital - YoungstownComment on above:Performed By: #### A1C #### [facility] [address] [address] [address] Davidson SaundersHemoglobin Ql (U)NegativermalNEGAvita Health System Ontario Hospital Comment on above:Performed By: #### A1C #### [facility] [address] [address] [address] Davidson SaundersKetones Ql (U)NegativeNormalNEGATIVESelect Medical Specialty Hospital - YoungstownComment on above:Performed By: #### A1C #### [facility] [address] [address] [address] Davidson MaharajOCYTESSMALLAbnormalNEGATIVESelect Medical Specialty Hospital - YoungstownComment on above:Performed By: #### A1C #### [facility] [address] [address] [address] Davidson SaundersNitrite Ql (U)NegativeNormalNEGATIVESelect Medical Specialty Hospital - YoungstownComment on above:Performed By: #### A1C #### [facility] [address] [address] [address] Davidson SaunderspH (U)7.0 [pH]Normal5-9[facility] YoungstownComment on above: Performed By: #### A1C #### [facility] [address] [address] [address] Davidson SaundersSPEC GRAVITY1.136Gynldu5.005-<=1.025The [facility] HospitalComment on above:Performed By: #### A1C #### [facility] [address] [address] [address] Davidson SaundersUA PROTEINNegativeNormalNEGATIVE/ TRACESelect [facility]ty [facility] Comment on above:Performed By: #### A1C #### [facility] [address] [address] [address] Davidson SaundersUR MICRO INDINDICATEDNoalThSouthwest General Health CenterComment on above: Performed By: #### A1C #### [facility] [address] [place] [address] Dr. Davidson Vegasbilinogen Qn (U)0.2 {Balaji'U}/dLNormal0.2 - 1.0The [facility] HospitalComment on above:Performed By: #### A1C #### [facility] [address] [place] [address] Dr. Davidson SaundersLACTATE/LACTIC ACIDon 05-01-1069Vownxrj [Moles/Vol]1.3 mmol/L Normal0.7-2.0The [facility] HospitalComment on above:Performed By: #### POCGLUC #### [facility] [address] [place] [address] Dr. Davidson Ferguson 14(COMP METB)on 80-93-6573Nhvmten [Mass/Vol]4.0 g/dLNormal 3.4-5.0The [facility] HospitalComment on above:Performed By: #### POCGLUC #### [facility] [address] [place] [address] Dr. Davidson SaundersAlbumin/Globulin [Mass ratio]1.0 {ratio}NormalThe [facility] HospitalComment on above:Performed By: #### POCGLUC #### [facility] [address] [place] [address] Dr. Davidson Dent [Catalytic activity/Vol]117 U/LCritically zqnj32-447Aqw [facility] HospitalComment on above:Performed By: #### POCGLUC #### [facility] [address] [place] [address] Dr. Davidson Caraballo [Catalytic activity/Vol]26 U/UIfyikt82-83Duz [facility] HospitalComment on above:Performed By: #### POCGLUC #### [facility] [address] [place] [address] Dr. Davidson Sorto gap [Moles/Vol]12.5 mmol/LNormalThe [facility] Comment on above:Performed By: #### POCGLUC #### [facility] [address] [place] [address] Dr. Davidson Avalos [Catalytic activity/Vol]15 U/EUbokva71-03Eso [facility] HospitalComment on above:Performed By: #### POCGLUC #### [facility] [address] [place] [address] Dr. Davidson SaundersBilirubin [Mass/Vol]0.3 mg/dLNormal0.2-1.3TCleveland Clinic [facility] Comment on above:Performed By: #### POCGLUC #### [facility] [address] [place] [address] Dr. Davidson SaundersCalcium [Mass/Vol]9.1 mg/dLNormal8.5-10.1The [facility] Comment on above:Performed By: #### POCGLUC #### [facility] [address] [place] [address] Dr. Davidson SaundersChloride [Moles/Vol]102 mmol/CBemtkb32-765Svi [facility] Comment on above:Performed By: #### POCGLUC #### [facility] [address] [place] [address] Dr. Davidson SaundersCO2 [Moles/Vol]28.3 mmol/SQndxpe58.0-30.0[facility] Comment on above:Performed By: #### POCGLUC #### [facility] [address] [place] [address] Dr. Davidson SaundersCreatinine [Mass/Vol]1.95 mg/dLCritically high0.52-1.04[facility] YoungstownComment on above:Performed By: #### POCGLUC #### [facility] [address] [place] [address] Dr. Davidson GuillaumeGFR-AF KMWMFUCN61 mL/min/1.50g5Rxmdtcaguv low>=60The [facility] HospitalComment on above:Performed By: #### POCGLUC #### [facility] [address] [place] [address] Dr. Davidson GuillaumeGFR-NON AF GRVDJEOV10 mL/min/1.95a4Tsogofbgfa low>=60The [facility] HospitalComment on above:Performed By: #### POCGLUC #### [facility] [address] [place] [address] Dr. Yilan ChangGlobulin (S) [Mass/Vol]3.9 g/dLNoMercy Health Allen HospitalComment on above:Performed By: #### POCGLUC #### [facility] [address] [place] [address] Dr. Davidson SaundersGlucose [Mass/Vol]83 mg/hJSgfwuq11-907LcfSelect Medical Specialty Hospital [facility] [place] Comment on above:Performed By: #### POCGLUC #### [facility] [address] [place] [address] Dr. Davidson SaundersPotassium [Moles/Vol]4.8 mmol/LNormal3.4-5.0The [facility] Comment on above:Performed By: #### POCGLUC #### [facility] [address] [place] [address] Dr. Davidson SaundersProtein [Mass/Vol]7.9 g/dLNormal6.1-8.2[facility] Comment on above:Performed By: #### POCGLUC #### [facility] [address] [place] [address] Dr. Davidson SaundersSodium [Moles/Vol]138 mmol/WDwnbwi746-736QvhSelect Medical Specialty Hospital [facility] Comment on above:Performed By: #### POCGLUC #### [facility] [address] [place] [address] Dr. Davidson SaundersUrea nitrogen [Mass/Vol]25.0 mg/dLCritically high7.0-18.0[facility] YoungstownComment on above:Performed By: #### POCGLUC #### [facility] [address] [place] [address] Dr. Davidson SaundersUrea nitrogen/Creatinine [Mass ratio]12.8 mg/mgNoalThSouthwest General Health CenterComment on above:Performed By: #### POCGLUC #### [facility] [address] [place] [address] Dr. Davidson SaundersPROTIMEon 52-56-7399ZKY Coag (PPP) [Relative time]0.95 {INR} NormalThe [facility] HospitalComment on above:Performed By: #### POCGLUC #### [facility] [address] [place] [address] Dr. Davidson Batres The MetroHealth SystemComment on above:Result Comment: DESIRED INR: 2.0 - 3.0 CONDITIONS NOT LISTED BELOW 2.5 - 3.5 FOR PROSTHETIC HEART VALVE REPLACEMENT 2.5 - 3.5 RECURRENT THROMBOSIS Performed By: #### POCGLUC #### [facility] [address] [place] [address] Dr. Davidson Clancy Coag (PPP) [Time]10.3 sNormal9.0-11.6The [facility] Comment on above:Performed By: #### POCGLUC #### [facility] [address] [place] [address] Dr. Davidson Krishna 17-86-8797pPHR Coag (Bld) [Time]24.8 eDnfzvq39.3-36.2[facility] - YoungstownComment on above:Performed By: #### POCGLUC #### [facility] [address] [place] [address] Dr. Davidson Levi, HIGH SENSITIVITYon 12-71-7668WAXDCY39.1 pg/mLNormal 4.0-35.5ThSouthwest General Health CenterComment on above:Result Comment: CUT-OFF POINTS HAVE BEEN ESTABLISHED BASED ON THE FOURTH UNIVERSAL DEFINITIONS OF MYOCARDIAL INFARCTION. THE UPPER REFERENCE LIMIT (URL) OF TROPONIN, DEFINED THE 99TH PERCENTILE OF cTnI DISTRIBUTION IN A REFERENCE POPULATION, HAS BEEN CONFIRMED THE DECISION THRESHOLD FOR MS DIAGNOSIS.Performed By: #### POCGLUC #### [facility] [address] [place] [address] Dr. Davidson Dodson 93-01-4729MUW1.082 uIU/mLCritically low0.470-4.680The [facility] HospitalComment on above:Performed By: #### TSH #### [facility] [address] [place] [address] Dr. Davidson Garner [facility] HospitalComment on above: Result Comment: <0.34 UIU/ml HYPERTHYROID 0.34-5.60 UIU/ml EUTHYROID >5.60 UIU/ml HYPOTHYROIDPerformed By: #### TSH #### [facility] [address] [address] [address] Davidson Rodriguez MICROSCOPIC ONLYon 32-55-5113HPQTWGDDSRTP SEENNormalNONE SEENRegional Medical Center on above:Performed By: #### A1C #### [facility] [address] [address] [address] Davidson Bridges identified Cx Nom (U)INDICATEDNoalThSouthwest General Health CenterComment on above:Performed By: #### A1C #### [facility] [address] [address] [address] Davidson Delvalle SEENNormalNONE SEENRegional Medical Center on above:Performed By: #### A1C #### [facility] [address] [place] [address] Dr. Davidson SaundersCrystals LM Nom (Urine sed)NONE SEENNormalNONE SEENSelect Medical Specialty Hospital - YoungstownComascension borg[facility] allegan hospital on above:Performed By: #### A1C #### [facility] [address] [place] [address] Dr. Cedeño ChangEpithelial cells LM Ql (Urine sed)FEWAbnormalNONE SEEN /RAREThe [facility] on above:Performed By: #### A1C #### [facility] [address] [place] [address] Dr. Davidson SaundersMUCOUSNONE SEENNormalNONE SEENRegional Medical Center on above:Performed By: #### A1C #### [facility] [address] [place] [address] Dr. Davidson SaundersRBCNONE SEENAbnormal0-2[facility] on above: Performed By: #### A1C #### [facility] [address] [place] [address] Dr. Davidson SaundersWBC2-5AbnormalNONE SEENRegional Medical Center on above: Performed By: #### A1C #### [facility] [address] [place] [address] Dr. Davidson SaundersXR CHEST 1 Von [id number] CHEST 1 VEXAMINATION: XR CHEST 1 V [...] Electronically authenticated by: ABHI BECERRIL Date: 2021-08-11 16:39[facility] CenterCREENING MAMMOGRAM W/ALEX, BILATERAL*on [id number] MAMMOGRAM W/ALEX, BILATERAL*COMPARISON: Dating back to November [...] VERY IMPORTANT TO YOUR HEALTH. THE CURRENT [employer] GUIDELINES RECOMMENDS ANNUAL MAMMOGRAPHY BEGINNING AT AGE 40. THIS FACILITY USES A REMINDER SYSTEM TO ENSURE ALL PATIENTS RECEIVE REMINDER NOTIFICATIONS AT THE APPROPRIATE TIME BASED ON THE RECOMMENDATIONS OF THIS EXAM. Report reported and signed by Shant Altman on 05/27/2021 0934MerlineCorewell Health Butterworth Hospitalcoco Veterans Administration Medical CenterXR Bone Density (DEXA)on 71-19-7740TM Bone Density (DEXA) EXAM: DUAL FEMUR BONE DENSITY FINDINGS: MbeuxvLKEVndyl-JveiqFyk-Rwachpi Total(g/cm2)(%)T-Score(%)Z-Score Mean0.30842 -1.4110 0.6 Impression: The mean BMD and [...] age. EXAM: AP LUMBAR BONE DENSITY FINDINGS: HhxzuhMUKKzekz-DqxbkZdb-Wasgkgy Total(g/cm2)(%)T-Score(%)Z-Score L1-L41.432185 1.93375.1 Impression: The mean BMD and corresponding T-score [...] and signed by Shant Altman on 05/26/2021 1530NormalNortbanner rehabilitation hospital westn [place] Medical SpecialistAPTTon 25-68-3739fPLO Coag (Bld) [Time]37.2 sHigh 20.5-30.5[facility] Medical CenterComment on above:Performed By: #### CDP, PFA, CP, GLYHGB #### [facility] [address] [id number] Executive Officer: Shalom Barahona Coag (Bld) [Time]37.2 sHigercy Health- [place], KYBasic Metabolic Panelon 51-78-9470Fmhcr gap [Moles/Vol]11 mmol/L9 - 17 mmol/LMercy Health- [place], KYBun/Cre RatioNOT REPORTEDMercy Health- [place], KYCalcium [Mass/Vol]8.4 mg/dLLow8.6 - 10.4 mg/dLMercy Health- [place], KYChloride [Moles/Vol] 104 mmol/L98 - 107 mmol/LMercy Health- [place], KYCO2 [Moles/Vol]26 mmol/L20 - 31 mmol/LMercy Health- [place], KYCreatinine [Mass/Vol]1.21 mg/dLHigh0.5 - 0.9 mg/dL [facility]- [place], KYGFR Xemwjusa06 mL/minLow>60[facility]- [place], KYGFR CommentMer Health- [place], KYGFR Non- Hxdpuscp61 mL/minLow>60[facility]- [place], KYGFR StagingNOT REPORTEDMercy Health- [place], KYGlucose [Mass/Vol]75 mg/dL70 - 99 mg/dLMercy Health- [place], KYInterpretation and review of laboratory results AbnormalMercy Health- [place], KYPotassium [Moles/Vol]4.1 mmol/L3.7 - 5.3 mmol/LMercy Health- [place], KYSodium [Moles/Vol]141 mmol/L135 - 144 mmol/LMercy Health- [place], [place] Urea nitrogen [Mass/Vol]26 mg/dLHigh8 - 23 mg/dLMercy Health- [place], KYBasic Metabolic Profon 07-24-2019(cont.)NormalUniversity Hospitals Beachwood Medical CenterComment on above:Result Comment: Average GFR for 70 or more years old: 75 mL/min/1.73sq m Chronic Kidney Disease: <60 mL/min/1.73sq m Kidney failure: <15 mL/min/1.73sq m eGFR calculated using average adult body mass. Additional eGFR calculator available at: http://www.[employer].Emergent [facility]/multiple_crcl_2012.htmPerformed By: #### CDP, PFA, CP, GLYHGB #### [facility] [address] [place] [address] Executive Officer: Savage Jacob MDAnion gap [Moles/Vol]11 mmol/LNormal9-17[facility] Medical CenterComment on above:Performed By: #### CDP, PFA, CP, GLYHGB #### [employer] [address] [place] [address] Executive Officer: CASEY Barahonaalcium [Mass/Vol]8.4 mg/dLLow8.6-10.4[facility] Medical CenterComment on above:Performed By: #### CDP, PFA, CP, GLYHGB #### [facility] [address] [place] [address] Executive Officer: Savage Jacob MDChloride [Moles/Vol]104 mmol/TGdftrb96-981KouswUniversity Hospitals Beachwood Medical CenterComment on above:Performed By: #### CDP, PFA, CP, GLYHGB #### [facility] [address] [place] [address] Executive Officer: Savage Jacob MDCO2 [Moles/Vol]26 mmol/PKntbrn98-88BlcipUniversity Hospitals Beachwood Medical CenterComment on above:Performed By: #### CDP, PFA, CP, GLYHGB #### [employer] [address] [place] [address] Executive Officer: Savage Jacob MDCreatinine [Mass/Vol]1.21 mg/dLHigh0.50-0.90 [facility] CenterComment on above:Performed By: #### CDP, PFA, CP, GLYHGB #### [facility] [address] [place] [address] Executive Officer: Savage Jacob MDGFR, Amer53 mL/minLow>60[facility]wood Medical CenterComment on above:Performed By: #### CDP, PFA, CP, GLYHGB #### [facility] [address] [place] [address] Executive Officer: Savage Jacob MDGFR,non Amer44 mL/minLow>60[facility] CenterComment on above:Performed By: #### CDP, PFA, CP, GLYHGB #### [address] [address] Executive Officer: Savage Jacob MDGlucose [Mass/Vol]75 mg/sJFlycix59-74ElcjpGreater El Monte Community HospitalComment on above:Performed By: #### CDP, PFA, CP, GLYHGB #### [facility] [address] [place] [address] Executive Officer: HALEY Barahonaotassium [Moles/Vol]4.1 mmol/LNormal3.7-5.3 [facility] CenterComment on above:Performed By: #### CDP, PFA, CP, GLYHGB #### [facility] [address] [place] [address] Executive Officer: Savage Jacob MDSodium [Moles/Vol]141 mmol/SFdnueg030-034AnxzgUniversity Hospitals Beachwood Medical CenterComment on above:Performed By: #### CDP, PFA, CP, GLYHGB #### [facility] [address] [place] [address] 77873 Executive Officer: Savage Jacob MDUrea nitrogen [Mass/Vol]26 mg/dLHigh8-23[facility] CenterComment on above:Performed By: #### CDP, PFA, CP, GLYHGB #### [facility] [address] [place] [address] 72022 Executive Officer: FELIICTY Barahona/CRE CyrusOT REPORTEDNormal9-20[facility] Medical CenterComment on above:Performed By: #### CDP, PFA, CP, GLYHGB #### [facility] [address] [place] [address] Executive Officer: ZANA Barahonataging:NOT REPORTEDNormalUniversity Hospitals Beachwood Medical CenterComment on above:Performed By: #### CDP, PFA, CP, GLYHGB #### [facility] [address] [place] [address] Executive Officer: Ulysses Barahona [id number] distribution width (RBC) [Ratio]15.4 %High11.8-14.4[facility] CenterComment on above:Performed By: #### CDP, PFA, CP, GLYHGB #### [facility] [address] [place] [address] Executive Officer: Savage Jacob MDHematocrit (Bld) [Volume fraction]29.2 %Low 36.3-47.1MEmanate Health/Foothill Presbyterian HospitalComment on above:Performed By: #### CDP, PFA, CP, GLYHGB #### [facility] [address] [place] [address] 9[address]19 Executive Officer: Savage Jacob MDHemoglobin (Bld) [Mass/Vol]8.4 g/dLLow11.9-15.1 [facility] CenterComment on above:Performed By: #### CDP, PFA, CP, GLYHGB #### [facility] [address] [place] [address] 22465 Executive Officer: ALISSA BarahonaCH (RBC) [Entitic mass]28.8 mePtddou69.2-33.5 [facility] CenterComment on above:Performed By: #### CDP, PFA, CP, GLYHGB #### [address] [address] Executive Officer: JAIME BarahonaC (RBC) [Mass/Vol]28.8 g/kDDpvsng33.4-34.8 [facility] CenterComment on above:Performed By: #### CDP, PFA, CP, GLYHGB #### [address] [address] Executive Officer: ALISSA BarahonaCV (RBC) [Entitic vol]100.0 lYFcrpdq34.6-102.9 [facility] CenterComment on above:Performed By: #### CDP, PFA, CP, GLYHGB #### [address] [address] Executive Officer: ILANA Barahona Automated0.0 per 100 WBCNormal0.0[facility] Medical CenterComment on above:Performed By: #### CDP, PFA, CP, GLYHGB #### [facility] [address] [place] [address]15 Executive Officer: Daniel Barahona mean volume (Bld) [Entitic vol]9.7 fL Normal8.1-13.5[facility] Medical CenterComment on above:Performed By: #### CDP, PFA, CP, GLYHGB #### [facility] [address] [place] [address] 13610 Executive Officer: Rico Barahona (Bld) [#/Vol]207 10*3/mVSljehs065-231 [facility] CenterComment on above:Performed By: #### CDP, PFA, CP, GLYHGB #### [facility] [address] [place] [address] [phone] Executive Officer: ISABELLE BarahonaBC (Bld) [#/Vol]2.92 10*6/uLLow3.95-5.11[facility] Medical CenterComment on above:Performed By: #### CDP, PFA, CP, GLYHGB #### [facility] [address] [place], [place] [phone] Executive Officer: Savage Jacob MDWBC (Bld) [#/Vol]7.8 10*3/uLNormal3.5-11.3MEmanate Health/Foothill Presbyterian HospitalComment on above:Performed By: #### CDP, PFA, CP, GLYHGB #### [facility] [address] [place], [place] [phone] Executive Officer: Savage Jacob MDErythrocyte distribution width (RBC) [Ratio]15.4 %High11.8 - 14.4 %[facility], ORHematocrit (Bld) [Volume fraction]29.2 % Low36.3 - 47.1 %[facility], ORHemoglobin (Bld) [Mass/Vol]8.4 g/dLLow11.9 - 15.1 g/dLUniversity Hospitals Geneva Medical Center, ORInterpretation and review of laboratory results AbnormalUniversity Hospitals Geneva Medical Center, ORMCH (RBC) [Entitic mass]28.8 pg25.2 - 33.5 pgUniversity Hospitals [facility] Medical Center, ORMCHC (RBC) [Mass/Vol]28.8 g/dL28.4 - 34.8 g/dLUniversity Hospitals Geneva Medical Center, [place] MCV (RBC) [Entitic vol]100.0 fL82.6 - 102.9 fLUniversity Hospitals Geneva Medical Center, ORPlatelet mean volume (Bld) [Entitic vol]9.7 fL8.1 - 13.5 fLSt. Mary'S [facility]- [place], KYPlatelets (Bld) [#/Vol]207 10*3/uLUniversity Hospitals Geneva Medical Center, KYRBC (Bld) [#/Vol]2.92 10*6/uLLow3.95 - 5.11 m/[facility], KYWBC (Bld) [#/Vol]0.0 10*3/uL0.0 per 100 WBCSt. Mary'S [facility]- [place], KYWBC (Bld) [#/Vol]7.8 10*3/uLUniversity Hospitals Conne[facility] [place], KYEKG 12 [place] [id number] Mkda04QXKRxlza Health- [place], KYP Mrng14inwlodhVpaof Health- [place], KYP-R Llhpmdkz834 [facility] [place], KYQ-T Ybcgzezm265 [facility] [place], [place] QRS Xznlujcx30 [facility]- [place], KYQTc Calculation (Bazett)414 [facility]- [place], KYR Oxpy09bfoenabRsbuw Health- [place], KYT Uszj46hisxtxdWwbfo Health- [place], [place] Ventricular Voqx91GEXOulxn Health- [place], KYSt. [facility]- [place], KYUniversity Hospitals [facility] [place], KYMagnesiumon 70-28-3467Vdrxctmyn [Mass/Vol]2.4 mg/dLNormal1.6-2.6Mhocking valley community hospitaly Doctors Hospital Of West CovinaComment on above:Performed By: #### CDP, PFA, CP, GLYHGB #### [facility] [address] [place] [address] Executive Officer: Savage Jacob MDMagnesium [Mass/Vol]2.4 mg/dL1.6 - 2.6 mg/dL [facility], KYOtheron 49-45-3961Vjftcxclaxntyc and review of laboratory resultsAbnormalUniversity Hospitals [facility], ORPO Glucose Fingerstickon 91-79-9890TUP Adnckpx344 mg/dL65 - 105 mg/dLUniversity Hospitals [facility], ORPOC Jfcnqyw15 mg/dL65 - 105 mg/dLUniversity Hospitals [facility], KYPTon [id number] Coag (PPP) [Relative time]3.0 {INR} NormalUniversity Hospitals Beachwood Medical CenterComment on above:Result Comment: Therapeutic Range: Moderate Anticoagulant Intensity: INR = 2.0-3.0 High Anticoagulant Intensity: INR = 2.5-3.5Performed By: #### CDP, PFA, CP, GLYHGB #### [facility] [address] [place] [address] [phone] Executive Officer: HALEY BarahonaT Coag (PPP) [Time]29.8 sHigh9.0-12.0[facility] Medical CenterComment on above:Performed By: #### CDP, PFA, CP, GLYHGB #### [facility] [place], [place] [phone] Executive Officer: Ric Barahonaime-INRon [id number] Coag (PPP) [Relative time]3.0 {INR}[facility], KYPT Coag (PPP) [Time]29.8 [facility], KYAPTTon 81-08-1208yINO Coag (Bld) [Time]67.2 sHigh20.5-30.5[facility] Medical CenterComment on above:Performed By: #### CDP, PFA, CP, GLYHGB #### [facility] [address] [place] [address] [phone] Executive Officer: Savage Jacob MDaPTT Coag (Bld) [Time]67.2 [facility], KYBasic Metab w/rfx MGon 07-23-2019(cont.)[facility] - ColumbusComment on above:Result Comment: Average GFR for 70 or more years old: 75 mL/min/1.73sq m Chronic Kidney Disease: <60 mL/min/1.73sq m Kidney failure: <15 mL/min/1.73sq m eGFR calculated using average adult body mass. Additional eGFR calculator available at: http://www.[employer].com/multiple_crcl_2012.htmPerformed By: #### CDP, PFA, CP, GLYHGB #### [facility] [place], [place] [phone] Executive Officer: Chayito Barahona gap [Moles/Vol]12 mmol/LNormal9-17[facility] Medical CenterComment on above:Performed By: #### CDP, PFA, CP, GLYHGB #### [facility] [address] [place] [address]6962 Executive Officer: CASEY Barahonaalcium [Mass/Vol]8.9 mg/dLNormal8.6-10.4[facility] CenterComment on above:Performed By: #### CDP, PFA, CP, GLYHGB #### [facility] [address] [place] [address] Executive Officer: Savage Jacob MDChloride [Moles/Vol]104 mmol/OZznkaa99-989AezplUniversity Hospitals Beachwood Medical CenterComment on above:Performed By: #### CDP, PFA, CP, GLYHGB #### [facility] [address] [place] [address] 8[address]66 Executive Officer: Savage Jacob MDCO2 [Moles/Vol]27 mmol/DNyxemv07-94SynqdUniversity Hospitals Beachwood Medical CenterComment on above:Performed By: #### CDP, PFA, CP, GLYHGB #### [address] [address] Executive Officer: Savage Jacob MDCreatinine [Mass/Vol]1.28 mg/dLHigh0.50-0.90 [facility] CenterComment on above:Performed By: #### CDP, PFA, CP, GLYHGB #### [facility] [address] [place] [address] 8[address]43 Executive Officer: SALLY Barahona, Amer50 mL/minLow>60[facility] CenterComment on above:Performed By: #### CDP, PFA, CP, GLYHGB #### [facility] [address] [place] [address] 28050 Executive Officer: SALLY Barahona,non Amer41 mL/minLow>60[facility] CenterComment on above:Performed By: #### CDP, PFA, CP, GLYHGB #### [facility] [address] [place] [address] 22343 Executive Officer: Savage Jacob MDGlucose [Mass/Vol]95 mg/nCIujeyn25-10EexypEmanate Health/Foothill Presbyterian HospitalComment on above:Performed By: #### CDP, PFA, CP, GLYHGB #### [facility] [address] [place] [address]138 Executive Officer: Savage Jacob, MDPotassium [Moles/Vol]3.8 mmol/LNormal3.7-5.3 [facility] CenterComment on above:Performed By: #### CDP, PFA, CP, GLYHGB #### [facility] [address] [place] [address] 13337 Executive Officer: Savage Jacob MDSodium [Moles/Vol]143 mmol/DJrsebn610-245LkpygUniversity Hospitals Beachwood Medical CenterComment on above:Performed By: #### CDP, PFA, CP, GLYHGB #### [facility] [address] [place] [address]46 Executive Officer: Savage Jacob MDUrea nitrogen [Mass/Vol]33 mg/dLHigh8-23[facility] Medical CenterComment on above:Performed By: #### CDP, PFA, CP, GLYHGB #### [facility] [address] [place] [address] 36801 Executive Officer: Savage Jacob MDBUN/CRE RatioNOT REPORTEDNormal9-20[facility] Medical CenterComment on above:Performed By: #### CDP, PFA, CP, GLYHGB #### [facility] [address] [place] [address] 72539 Executive Officer: ZANA Barahonataging:NOT REPORTEDNormalUniversity Hospitals Beachwood Medical CenterComment on above:Performed By: #### CDP, PFA, CP, GLYHGB #### [facility] [address] [place] [address]01 Executive Officer: Savage Jacob MDSaint Francis Hospital & [facility] Center Metabolic Panelon [id number] gap [Moles/Vol]14 mmol/L9 - 17 mmol/LMercy Health- [place], KYBun/Cre RatioNOT REPORTED [facility]- [place], KYCalcium [Mass/Vol]9.0 mg/dL8.6 - 10.4 mg/dLMercy Health- [place], KYChloride [Moles/Vol]104 mmol/L98 - 107 mmol/LMercy Health- [place], KYCO2 [Moles/Vol]26 mmol/L20 - 31 mmol/LMercy Health- [place], KYCreatinine [Mass/Vol]1.29 mg/dLHigh0.5 - 0.9 mg/dLMercy Health- [place], KYGFR Ewfudhox98 mL/minLow>60 [facility]- [place], KYGFR CommentMercy Health- [place], KYGFR Non- Tjaukrso42 mL/minLow>60[facility]- [place], KYGFR StagingNOT REPORTEDMercy Health- [place], [place] Glucose [Mass/Vol]88 mg/dL70 - 99 mg/dLMercy Health- [place], KYInterpretation and review of laboratory resultsAbnormalMercy Health- [place], KYPotassium [Moles/Vol]4.0 mmol/L3.7 - 5.3 mmol/LMercy Health- [place], KYSodium [Moles/Vol]144 mmol/L135 - 144 mmol/LMercy Health- [place], KYUrea nitrogen [Mass/Vol]34 mg/dLHigh8 - 23 mg/dLMercy Health- [place], KYBawilliamson arh hospital Metabolic Panel w/ Reflex to MGon [id number] gap [Moles/Vol]12 mmol/L9 - 17 mmol/LMercy Health- [place], KYBun/Cre RatioNOT REPORTED [facility]- [place], KYCalcium [Mass/Vol]8.9 mg/dL8.6 - 10.4 mg/dLMercy Health- [place], KYChloride [Moles/Vol]104 mmol/L98 - 107 mmol/LMercy Health- [place], KYCO2 [Moles/Vol]27 mmol/L20 - 31 mmol/LMercy Health- [place], KYCreatinine [Mass/Vol]1.28 mg/dLHigh0.5 - 0.9 mg/dLUniversity Hospitals [facility], KYGFR Waplbger62 mL/minLow>60 [facility], KYGFR CommentUniversity Hospitals Geneva Medical Center, KYGFR Non- Sjgdfhoj12 mL/minLow>60[facility], KYGFR StagingNOT REPORTEDUniversity Hospitals [facility], [place] Glucose [Mass/Vol]95 mg/dL70 - 99 mg/dLUniversity Hospitals [facility], KYInterpretation and review of laboratory resultsAbnormalUniversity Hospitals [facility], KYPotassium [Moles/Vol]3.8 mmol/L3.7 - 5.3 mmol/LMOur Lady of [facility]cy [facility], KYSodium [Moles/Vol]143 mmol/L135 - 144 mmol/[facility], KYUrea nitrogen [Mass/Vol]33 mg/dLHigh8 - 23 mg/dLUniversity Hospitals [facility], KYBasic Metabolic Profon 07-23-2019(cont.)[facility] - ColumbusComment on above:Result Comment: Average GFR for 70 or more years old: 75 mL/min/1.73sq m Chronic Kidney Disease: <60 mL/min/1.73sq m Kidney failure: <15 mL/min/1.73sq m eGFR calculated using average adult body mass. Additional eGFR calculator available at: http://www.[employer]/multiple_crcl_2012.htmPerformed By: #### CDP, PFA, CP, GLYHGB #### [facility] [address] [place], [place] [phone] Executive Officer: Chayito Barahona gap [Moles/Vol]14 mmol/LNormal9-17[facility] CenterComment on above:Performed By: #### CDP, PFA, CP, GLYHGB #### [facility] [address] [place], [place] [phone] Executive Officer: CASEY Barahonaalcium [Mass/Vol]9.0 mg/dLNormal8.6-10.4[facility] Medical CenterComment on above:Performed By: #### CDP, PFA, CP, GLYHGB #### [facility] [address] [place] [address] Executive Officer: CASEY Barahonahloride [Moles/Vol]104 mmol/UXzjfmz64-904JlxncUniversity Hospitals Beachwood Medical CenterComment on above:Performed By: #### CDP, PFA, CP, GLYHGB #### [facility] [address] [place] [address]02 Executive Officer: Savage Jacob MDCO2 [Moles/Vol]26 mmol/QYrhvzi73-05OsbvpUniversity Hospitals Beachwood Medical CenterComment on above:Performed By: #### CDP, PFA, CP, GLYHGB #### [facility] [address] [place] [address]893 Executive Officer: CASEY Barahonareatinine [Mass/Vol]1.29 mg/dLHigh0.50-0.90 [facility] CenterComment on above:Performed By: #### CDP, PFA, CP, GLYHGB #### [facility] [address] [place] [address]68 Executive Officer: Savage Jacob MDGFR, Amer50 mL/minLow>60[facility] CenterComment on above:Performed By: #### CDP, PFA, CP, GLYHGB #### [facility] [address] [place] [address]657 Executive Officer: Savage Jacob MDGFR,non Amer41 mL/minLow>60[facility] CenterComment on above:Performed By: #### CDP, PFA, CP, GLYHGB #### [facility] [address] [place] [address] Executive Officer: Savage Jacob MDGlucose [Mass/Vol]88 mg/yVFhkquk88-26KuxwrEmanate Health/Foothill Presbyterian HospitalComment on above:Performed By: #### CDP, PFA, CP, GLYHGB #### [facility] [address] [place] [address] Executive Officer: HALEY Barahonaotassium [Moles/Vol]4.0 mmol/LNormal3.7-5.3 [facility] CenterComment on above:Performed By: #### CDP, PFA, CP, GLYHGB #### [facility] [address] [place] [address]18 Executive Officer: ZANA Barahonaodium [Moles/Vol]144 mmol/ZSuvgfl284-771LepvoUniversity Hospitals Beachwood Medical CenterComment on above:Performed By: #### CDP, PFA, CP, GLYHGB #### [address] [address] Executive Officer: Sherie Barahona nitrogen [Mass/Vol]34 mg/dLHigh8-23[facility] CenterComment on above:Performed By: #### CDP, PFA, CP, GLYHGB #### [address] [address] Executive Officer: FELICITY Barahona/CRE RatioNOT REPORTEDNormal9-20[facility] CenterComment on above:Performed By: #### CDP, PFA, CP, GLYHGB #### [facility] [address] [place] [address]91 Executive Officer: ZANA Barahonataging:NOT REPORTEDNormalUniversity Hospitals Beachwood Medical CenterComment on above:Performed By: #### CDP, PFA, CP, GLYHGB #### [facility] [address] [place] [address]65 Executive Officer: Ulysses Barahona 38-12-5969Shbmxcborqr distribution width (RBC) [Ratio]15.6 %High11.8-14.4[facility] CenterComment on above:Performed By: #### CDP, PFA, CP, GLYHGB #### [facility] [address] [place] [address]19 Executive Officer: Savage Jacob MDHematocrit (Bld) [Volume fraction]31.2 %Low 36.3-47.1MEmanate Health/Foothill Presbyterian HospitalComment on above:Performed By: #### CDP, PFA, CP, GLYHGB #### [address] [id number] Executive Officer: Savage Jacob MDHemoglobin (Bld) [Mass/Vol]9.1 g/dLLow11.9-15.1 [facility] CenterComment on above:Performed By: #### CDP, PFA, CP, GLYHGB #### [place] [address] Executive Officer: ALISSA BarahonaCH (RBC) [Entitic mass]28.4 fiVtdyfk44.2-33.5 [facility] CenterComment on above:Performed By: #### CDP, PFA, CP, GLYHGB #### [place] [address] Executive Officer: JAIME BarahonaC (RBC) [Mass/Vol]29.2 g/lNZuxbfk61.4-34.8 [facility] CenterComment on above:Performed By: #### CDP, PFA, CP, GLYHGB #### [place] [address] Executive Officer: ALISSA BarahonaCV (RBC) [Entitic vol]97.5 nTGwznum08.6-102.9 [facility] CenterComment on above:Performed By: #### CDP, PFA, CP, GLYHGB #### [address] [address] Executive Officer: Savage Jacob MDNRBC Automated0.0 per 100 WBCNormal0.0[facility] Medical CenterComment on above:Performed By: #### CDP, PFA, CP, GLYHGB #### [address] [address] Executive Officer: Daniel Barahona mean volume (Bld) [Entitic vol]9.9 fL Normal8.1-13.5[facility] CenterComment on above:Performed By: #### CDP, PFA, CP, GLYHGB #### [address] [address] Executive Officer: Taylor Barahonatejimbo (Bld) [#/Vol]276 10*3/oHWwgfxm120-451 [facility] CenterComment on above:Performed By: #### CDP, PFA, CP, GLYHGB #### [address] [address] Executive Officer: ISABELLE BarahonaBC (Bld) [#/Vol]3.20 10*6/uLLow3.95-5.11[facility] CenterComment on above:Performed By: #### CDP, PFA, CP, GLYHGB #### [address] [address] Executive Officer: Savage Jacob MDWBC (Bld) [#/Vol]10.8 10*3/uLNormal3.5-11.3MEmanate Health/Foothill Presbyterian HospitalComment on above:Performed By: #### CDP, PFA, CP, GLYHGB #### [facility] [address] [place] [address]46 Executive Officer: Savage Jacob MDErythrocyte distribution width (RBC) [Ratio]15.6 %High11.8 - 14.4 %[facility], KYHematocrit (Bld) [Volume fraction]31.2 % Low36.3 - 47.1 %[facility], KYHemoglobin (Bld) [Mass/Vol]9.1 g/dLLow11.9 - 15.1 g/dLUniversity Hospitals Geneva Medical Center, KYInterpretation and review of laboratory results AbnormalUniversity Hospitals [facility] Center, ORMCH (RBC) [Entitic mass]28.4 pg25.2 - 33.5 pgUniversity Hospitals Geneva Medical Center, ORMCHC (RBC) [Mass/Vol]29.2 g/dL28.4 - 34.8 g/dLAlexander, [place] MCV (RBC) [Entitic vol]97.5 fL82.6 - 102.9 fLUniversity Hospitals Geneva Medical Center, ORPlatelet mean volume (Bld) [Entitic vol]9.9 fL8.1 - 13.5 fLUniversity Hospitals Geneva Medical Center, ORPlatelets (Bld) [#/Vol]276 10*3/uLUniversity Hospitals [facility] Center, ORRBC (Bld) [#/Vol]3.20 10*6/uLLow3.95 - 5.11 m/[facility], ORWBC (Bld) [#/Vol]0.0 10*3/uL0.0 per 100 WBCUniversity Hospitals Geneva Medical Center, ORWBC (Bld) [#/Vol]10.8 10*3/uLUniversity Hospitals Geneva Medical Center, ORMagnesiumon 46-57-0632Mnpksacci [Mass/Vol]2.6 mg/dLNormal1.6-2.6[facility] Of West CovinaComment on above:Performed By: #### CDP, PFA, CP, GLYHGB #### [facility] [place] [address] Executive Officer: Savage Jacob MDMagnesium [Mass/Vol]2.6 mg/dL1.6 - 2.6 mg/dL [facility], KYOtheron [id number] and review of laboratory resultsAbnormOhioHealth Hardin Memorial Hospital Glucose Fingerstickon 07-23-2019 Interpretation and review of laboratory resultsAbnormOhioHealth Hardin Memorial Hospital Tfcuznh456 mg/wBLqwm85 - 105 mg/dLUniversity Hospitals [facility], ORInterpretation and review of laboratory resultsAbnormOhioHealth Hardin Memorial Hospital Cuehqac798 mg/mHTqya59 - 105 mg/dLUniversity Hospitals [facility], KYInterpretation and review of laboratory results AbnormalUniversity Hospitals [facility], ORPO Uuowkzd468 mg/eWRfwu51 - 105 mg/dLUniversity Hospitals [facility] Center, KYInterpretation and review of laboratory resultsAbnormalUniversity Hospitals [facility], ORPO Uzqiwxc559 mg/kJMktn23 - 105 mg/dLUniversity Hospitals Geneva Medical Center, KYPTon 55-52-0232TYD Coag (PPP) [Relative time]1.3 {INR}NormalUniversity Hospitals Beachwood Medical CenterComment on above:Result Comment: Therapeutic Range: Moderate Anticoagulant Intensity: INR = 2.0-3.0 High Anticoagulant Intensity: INR = 2.5-3.5Performed By: #### CDP, PFA, CP, GLYHGB #### [facility] [address] [place] [address] [phone] Executive Officer: RIGO Barahona Coag (PPP) [Time]13.6 sHigh9.0-12.0[facility] Medical CenterComment on above:Performed By: #### CDP, PFA, CP, GLYHGB #### [facility] [address] [place] [address] [phone] Executive Officer: Reinaldo Barahona 90-00-8321Baulljahp [Mass/Vol]2.9 mg/dL2.6 - 4.5 mg/dLUniversity Hospitals Geneva Medical Center, KYPhosphorus, Inorg.on 07-23-2019 Phosphorus, Inorg.2.9 mg/dLNormal2.6-4.5[facility] Medical CenterComment on above:Performed By: #### CDP, PFA, CP, GLYHGB #### [facility] [address] [place] [address] Executive Officer: Christo Barahona-INRon 33-08-8069SVK Coag (PPP) [Relative time]1.3 {INR}[facility], KYPT Coag (PPP) [Time]13.6 sHigUniversity Hospitals Beach[facility] Medical Center, KYAPTTon [id number] Coag (Bld) [Time]59.4 sHigh20.5-30.5University [facility]als Beachwood Medical CenterComment on above:Performed By: #### CDP, PFA, CP, GLYHGB #### [facility] [address] [id number] Executive Officer: Shalom Barahona Coag (Bld) [Time]59.4 [facility], KYBasic Metabolic Panelon 86-31-1085Vqgpj gap [Moles/Vol]14 mmol/L9 - 17 mmol/LMWVUMedicine Harrison [facility] [place], KYBun/Cre RatioNOT REPORTEDUniversity Hospitals Geneva Medical Center, KYCalcium [Mass/Vol]8.9 mg/dL8.6 - 10.4 mg/dLUniversity Hospitals Geneva Medical Center, KYChloride [Moles/Vol]106 mmol/L98 - 107 mmol/LMMemorial Health System- [place], KYCO2 [Moles/Vol]24 mmol/L20 - 31 mmol/L [facility], KYCreatinine [Mass/Vol]1.49 mg/dLHigh0.5 - 0.9 mg/dLUniversity Hospitals Geneva Medical Center, KYGFR Ndqggtbn43 mL/minLow>60[facility], KYGFR Comment [facility], KYGFR Non- Bmcbhned94 mL/minLow>60[facility], [place] GFR StagingNOT REPORTEDUniversity Hospitals Geneva Medical Center, KYGlucose [Mass/Vol]105 mg/yNFxhi17 - 99 mg/dLUniversity Hospitals Geneva Medical Center, KYPotassium [Moles/Vol]3.7 mmol/L3.7 - 5.3 mmol/[facility] [place], KYSodium [Moles/Vol]144 mmol/L135 - 144 mmol/LMWVUMedicine [facility] [place], [place] Urea nitrogen [Mass/Vol]45 mg/dLHigh8 - 23 mg/dLUniversity Hospitals Geneva Medical Center, KYBasic Metabolic Profon 07-22-2019(cont.)[facility] ColumbusComment on above:Result Comment: Average GFR for 70 or more years old: 75 mL/min/1.73sq m Chronic Kidney Disease: <60 mL/min/1.73sq m Kidney failure: <15 mL/min/1.73sq m eGFR calculated using average adult body mass. Additional eGFR calculator available at: http://www.[employer].com/multiple_crcl_2012.htmPerformed By: #### CDP, PFA, CP, GLYHGB #### [facility] [address] [place] [address] Executive Officer: Savage Jacob MDAnion gap [Moles/Vol]14 mmol/LNormal9-17[facility] Beachwood Medical CenterComment on above:Performed By: #### CDP, PFA, CP, GLYHGB #### [facility] [address] [place] [address] Executive Officer: Savage Jacob MDCalcium [Mass/Vol]8.9 mg/dLNormal8.6-10.4[facility] Beachwood Medical CenterComment on above:Performed By: #### CDP, PFA, CP, GLYHGB #### [facility] [address] [place] [address] Executive Officer: Savage Jacob MDChloride [Moles/Vol]106 mmol/KEykzqu99-213SrfjyUniversity Hospitals Beachwood Medical CenterComment on above:Performed By: #### CDP, PFA, CP, GLYHGB #### [facility] [address] [place] [address] Executive Officer: Savage Jacob MDCO2 [Moles/Vol]24 mmol/TLqviqw34-32TdcsiUniversity Hospitals Beachwood Medical CenterComment on above:Performed By: #### CDP, PFA, CP, GLYHGB #### [facility] [address] [place] [address] Executive Officer: Savage Jacob MDCreatinine [Mass/Vol]1.49 mg/dLHigh0.50-0.90 [facility] Beachwood Medical CenterComment on above:Performed By: #### CDP, PFA, CP, GLYHGB #### [facility] [address] [place] [address] Executive Officer: Savage Jacob MDGFR, Amer42 mL/minLow>60[facility] Beachwood Medical CenterComment on above:Performed By: #### CDP, PFA, CP, GLYHGB #### [facility] [address] [place] [address] Executive Officer: Savage Jacob MDGFR,non Amer35 mL/minLow>60[facility] Beachwood Medical CenterComment on above:Performed By: #### CDP, PFA, CP, GLYHGB #### [facility] [address] [place] [address] Executive Officer: Savage Jacob MDGlucose [Mass/Vol]105 mg/eYOclu76-77ZsbzuEmanate Health/Foothill Presbyterian HospitalComment on above:Performed By: #### CDP, PFA, CP, GLYHGB #### [address] [address] Executive Officer: HALEY Barahonaotassium [Moles/Vol]3.7 mmol/LNormal3.7-5.3 [facility] Beachwood Medical CenterComment on above:Performed By: #### CDP, PFA, CP, GLYHGB #### [address] [address] Executive Officer: ZANA Barahonaodium [Moles/Vol]144 mmol/JYozfca234-325LyygiUniversity Hospitals Beachwood Medical CenterComment on above:Performed By: #### CDP, PFA, CP, GLYHGB #### [facility] [address] [place] [address] Executive Officer: Savage Jacob MDUrea nitrogen [Mass/Vol]45 mg/dLHigh8-23[facility] Beachwood Medical CenterComment on above:Performed By: #### CDP, PFA, CP, GLYHGB #### [facility] [address] [place] [address] Executive Officer: Savage Jacob MDBUN/CRE RatioNOT REPORTEDNormal9-20[facility] Beachwood Medical CenterComment on above:Performed By: #### CDP, PFA, CP, GLYHGB #### [facility] [address] [place] [address] Executive Officer: ZANA Barahonataging:NOT REPORTEDNormalUniversity Hospitals Beachwood Medical CenterComment on above:Performed By: #### CDP, PFA, CP, GLYHGB #### [facility] [address] [place] [address] Executive Officer: CASEY Barahonastarla 41-36-6109Ufwlkyrrygl distribution width (RBC) [Ratio]15.5 %High11.8-14.4[facility] Beachwood Medical CenterComment on above:Performed By: #### CDP, PFA, CP, GLYHGB #### [facility] [address] [place] [place] [address] Executive Officer: Savage Jacob MDHematocrit (Bld) [Volume fraction]30.6 %Low 36.3-47.1MEmanate Health/Foothill Presbyterian HospitalComment on above:Performed By: #### CDP, PFA, CP, GLYHGB #### [facility] [address] [place] [address] Executive Officer: Savage Jacob MDHemoglobin (Bld) [Mass/Vol]9.1 g/dLLow11.9-15.1 [facility] Medical CenterComment on above:Performed By: #### CDP, PFA, CP, GLYHGB #### [facility] [address] [place] [address] Executive Officer: ALISSA BarahonaCH (RBC) [Entitic mass]28.3 gmXiidxn48.2-33.5 [facility] Medical CenterComment on above:Performed By: #### CDP, PFA, CP, GLYHGB #### [facility] [address] [place] [address] Executive Officer: Savage Madoff, MDMCHC (RBC) [Mass/Vol]29.7 g/uCDkznrq01.4-34.8 [facility] Medical CenterComment on above:Performed By: #### CDP, PFA, CP, GLYHGB #### [facility] [address] [place] [address] Executive Officer: ALISSA BarahonaCV (RBC) [Entitic vol]95.3 xFRtmszj67.6-102.9 [facility] Medical CenterComment on above:Performed By: #### CDP, PFA, CP, GLYHGB #### [place] [address] Executive Officer: ILANA Barahona Automated0.0 per 100 WBCNormal0.0[facility] Beachwood Medical CenterComment on above:Performed By: #### CDP, PFA, CP, GLYHGB #### [facility] [address] [place] [address] Executive Officer: Taylor Barahonatemartine mean volume (Bld) [Entitic vol]9.7 fL Normal8.1-13.5[facility] Beachwood Medical CenterComment on above:Performed By: #### CDP, PFA, CP, GLYHGB #### [facility] [address] [place] [address] Executive Officer: Taylor Barahonatejimbo (Bld) [#/Vol]291 10*3/zFZdvsve828-637 [facility] Medical CenterComment on above:Performed By: #### CDP, PFA, CP, GLYHGB #### [facility] [address] [place] [address] Executive Officer: ISABELLE BarahonaBC (Bld) [#/Vol]3.21 10*6/uLLow3.95-5.11[facility]wood Medical CenterComment on above:Performed By: #### CDP, PFA, CP, GLYHGB #### [address] [place] [address] Executive Officer: Savage Jacob MDWBC (Bld) [#/Vol]17.3 10*3/uLHigh3.5-11.3[facility] Hospital Of West CovinaComment on above:Performed By: #### CDP, PFA, CP, GLYHGB #### [facility] [address] [place], [place] [phone] Executive Officer: Savage Jacob MDErythrocyte distribution width (RBC) [Ratio]15.5 %High11.8 - 14.4 %[facility], KYHematocrit (Bld) [Volume fraction]30.6 % Low36.3 - 47.1 %[facility] [place], KYHemoglobin (Bld) [Mass/Vol]9.1 g/dLLow11.9 - 15.1 g/dLUniversity Hospitals Conneaut Medical [facility] [place], KYInterpretation and review of laboratory results AbnormalUniversity Hospitals Geneva Medical Center, [facility] (RBC) [Entitic mass]28.3 pg25.2 - 33.5 pgUniversity Hospitals Geneva Medical Center, ORMCHC (RBC) [Mass/Vol]29.7 g/dL28.4 - 34.8 g/dLSt. [facility]- [place], [place] MCV (RBC) [Entitic vol]95.3 fL82.6 - 102.9 fLUniversity Hospitals Conneaut Medical Center [place], KYPlatelet mean volume (Bld) [Entitic vol]9.7 fL8.1 - 13.5 fLSt. Mary'S [facility]- [place], KYPlatelets (Bld) [#/Vol]291 10*3/uLSt. Mary'S [facility]- [place], KYRBC (Bld) [#/Vol]3.21 10*6/uLLow3.95 - 5.11 m/uLSt. Mary'S [facility]- [place], KYWBC (Bld) [#/Vol]0.0 10*3/uL0.0 per 100 WBCSt. Mary'S [facility]- [place], KYWBC (Bld) [#/Vol]17.3 10*3/uLHighSt. Mary'S [facility]- [place], KYK (Potassium) on 45-77-4214Xnsfpmqbm [Moles/Vol]3.7 mmol/LNormal3.7-5.3[facility] Of West CovinaComment on above:Performed By: #### CDP, PFA, CP, GLYHGB #### [facility] [address] [place], [place] [phone] Executive Officer: Miles Barahonagnesiumon 45-35-6525Xwzbauiox [Mass/Vol]2.8 mg/dLHigh1.6-2.6MercGreater El Monte Community HospitalComment on above:Performed By: #### CDP, PFA, CP, GLYHGB #### [facility] [address] [place], [place] [phone] Executive Officer: Savage Jacob MDMagnesium [Mass/Vol]2.8 mg/dLHigh1.6 - 2.6 mg/dL [facility], KYOtheron 92-55-3399Uaywbxolveenkl and review of laboratory resultsAbPomerene Hospital, ORInterpretation and review of laboratory resultsAbPomerene Hospital, [facility] Glucose Fingerstickon 07-22-2019 Interpretation and review of laboratory resultsAbPomerene Hospital, [facility] Jplihlv088 mg/mTXcfk56 - 105 mg/dLUniversity Hospitals Geneva [facility] Center, ORInterpretation and review of laboratory resultsAbPomerene Hospital, [facility] Mlyvhcr717 mg/oEIhsq93 - 105 mg/dLUniversity Hospitals [facility], [facility] Bpvcnlp64 mg/dL65 - 105 mg/dLUniversity Hospitals [facility], [facility] Sskddgm34 mg/dL65 - 105 mg/dLUniversity Hospitals Geneva Medical Center, KYPOTASSIUMon 07-22-2019 Potassium [Moles/Vol]3.7 mmol/L3.7 - 5.3 mmol/LMOur Lady of Mercy [facility] [place], KYPTon [phone] Coag (PPP) [Relative time]1.2 {INR}NormalUniversity Hospitals Beachwood Medical CenterComment on above:Result Comment: Therapeutic Range: Moderate Anticoagulant Intensity: INR = 2.0-3.0 High Anticoagulant Intensity: INR = 2.5-3.5Performed By: #### CDP, PFA, CP, GLYHGB #### [facility] [address] [place], [place] [phone] Executive Officer: HALEY BarahonaT Coag (PPP) [Time]12.4 sHigh9.0-12.0[facility] Medical CenterComment on above:Performed By: #### CDP, PFA, CP, GLYHGB #### [facility] [place], [place] [phone] Executive Officer: Ric Barahonafrye regional medical center [facility]-INRon [id number] Coag (PPP) [Relative time]1.2 {INR}[facility], KYPT Coag (PPP) [Time]12.4 [facility], KYXR CHEST (SINGLE VIEW FRONTAL)on [id number] CHEST (SINGLE VIEW FRONTAL) EXAMINATION: ONE XRAY [...] Signed by: Morro Miranda MD 07/21/19 Final resultNormalUniversity Hospitals Beachwood Medical CenterAPTTon 14-22-2892iDKE Coag (Bld) [Time]56.0 sHigh20.5-30.5[facility]wood Medical CenterComment on above: Performed By: #### CDP, PFA, CP, GLYHGB #### [facility] [place], [place] [id number] Executive Officer: Delfino BarahonaT Coag (Bld) [Time]56.0 [facility] [place], KYInterpretation and review of laboratory resultsAbnoMcKitrick Hospital [place], KYaPTT Coag (Bld) [Time]84.1 [facility] [place] [address] Comment on above:Performed By: #### CDP, PFA, CP, GLYHGB #### [facility] [address] [place], [place] [id number] Executive Officer: Shalom Barahonag (Bld) [Time]84.1 [facility] [place], KYInterpretation and review of laboratory resultsAbnoTriHealth Good Samaritan Hospital, ORaPTT Coag (Bld) [Time]70.7 [facility] Sterlingh20.5-30.5[facility] Comment on above:Performed By: #### CDP, PFA, CP, GLYHGB #### [facility] [address] [place] [address]108 Executive Officer: Shalom Barahona Coag (Bld) [Time]70.7 [facility], ORAnion Gap (Calc) POCon 20-47-2985Irutc gap [Moles/Vol]12 mmol/L7 - 16 mmol/[facility]- [place], ORArterial Blood Gas, POCon 56-16-3874Qvbtm TestPositive [facility]- [place], ZOTKT433.0[facility]- [place], KYModeNOT REPORTEDSt. [facility]- [place], KYNegative Base Excess, ArtNOT REPORTEDSt. [facility]- [place], KYO2 Device/Flow/% NRBMMemorial Health System- [place], ORPO SWY545.2 mmol/LHigh21 - 28 mmol/LMtrinity health system [facility] Health- [place], [place] POC O2 SAT94 %94 - 98 %[facility]- [place], [facility] yEQ436.1MMemorial Health System- [place], [facility] pCO2 TempNOT REPORTEDmm HgSt. Mary'[facility]- [place], ORPO pH7.419[facility]- [place], ORPO pH TempNOT REPORTEDSt. [facility]- [place], KYPOC PO270.8LowSt. [facility]- [place], KYPOC pO2 TempNOT REPORTEDmm HgSt. Mary'[facility]- [place], KYPositive Base Excess, Ixj1SvjqGdthh Health- [place], KYPt TempNOT REPORTEDSt. [facility]- [place], KYSample SiteLeft Radial ArteryMerSeattle VA Medical Center- [place], KYTCO2 (calc), Art31 mmol/LHigh22 - 29 mmol/LMtrinity health system [facility] Health- [place], KYBasic Metabolic Panelon 91-21-4446Wpkdr gap [Moles/Vol]14 mmol/L9 - 17 mmol/LMhocking valley community hospitaly Health- [place], KYBun/Cre RatioNOT REPORTEDSt. [facility]- [place], [place] Calcium [Mass/Vol]9.0 mg/dL8.6 - 10.4 mg/dLSt. [facility]- [place], KYChloride [Moles/Vol]103 mmol/L98 - 107 mmol/LMhocking valley community hospitaly Health- [place], KYCO2 [Moles/Vol]26 mmol/L 20 - 31 mmol/LMMemorial Health System- [place], KYCreatinine [Mass/Vol]1.74 mg/dLHigh0.5 - 0.9 mg/dLSt. [facility]- [place], KYGFR Wuphrfow64 mL/minLow>60[facility]- [place], [place] GFR CommentMerSeattle VA Medical Center- [place], KYGFR Non- Eyioifjf63 mL/minLow>60[facility]- [place], KYGFR StagingNOT REPORTEDSt. [facility]- [place], KYGlucose [Mass/Vol]184 mg/nOLozr80 - 99 mg/dLSt. Mary'[facility]- [place], KYPotassium [Moles/Vol]4.4 mmol/L3.7 - 5.3 mmol/LMMemorial Health System- [place], KYSodium [Moles/Vol]143 mmol/L135 - 144 mmol/LMtrinity health system [facility] Health- [place], KYUrea nitrogen [Mass/Vol]57 mg/dLHigh8 - 23 mg/dLSt. [facility]- [place], KYBasic Metabolic Profon 07-21-2019(cont.)[facility] Comment on above:Result Comment: Average GFR for 70 or more years old: 75 mL/min/1.73sq m Chronic Kidney Disease: <60 mL/min/1.73sq m Kidney failure: <15 mL/min/1.73sq m eGFR calculated using average adult body mass. Additional eGFR calculator available at: http://www.[employer].com/multiple_crcl_2012.htmPerformed By: #### CDP, PFA, CP, GLYHGB #### [facility] [address] [place] [address] Executive Officer: Savage Jacob MDAnion gap [Moles/Vol]14 mmol/LNormal9-17[facility] Medical CenterComment on above:Performed By: #### CDP, PFA, CP, GLYHGB #### [facility] [employer] [address] [place] [address] Executive Officer: Savage Jacob MDCalcium [Mass/Vol]9.0 mg/dLNormal8.6-10.4[facility] Medical CenterComment on above:Performed By: #### CDP, PFA, CP, GLYHGB #### [facility] [employer] [address] [place] [address] Executive Officer: Savage Jacob MDChloride [Moles/Vol]103 mmol/YPrrvrb48-912CagyoUniversity Hospitals Beachwood Medical CenterComment on above:Performed By: #### CDP, PFA, CP, GLYHGB #### [facility] [address] [place] [address] Executive Officer: Savage Jacob MDCO2 [Moles/Vol]26 mmol/BQpkwzs29-53EiwrrUniversity Hospitals Beachwood Medical CenterComment on above:Performed By: #### CDP, PFA, CP, GLYHGB #### [facility] [address] [place] [address] Executive Officer: Savage Jacob MDCreatinine [Mass/Vol]1.74 mg/dLHigh0.50-0.90 [facility] CenterComment on above:Performed By: #### CDP, PFA, CP, GLYHGB #### [facility] [address] [place] [address] Executive Officer: Savage Madoff, MDGFR, Amer35 mL/minLow>60[facility] CenterComment on above:Performed By: #### CDP, PFA, CP, GLYHGB #### [facility] [address] [place] [address] Executive Officer: Savage Jacob MDGFR,non Amer29 mL/minLow>60[facility] CenterComment on above:Performed By: #### CDP, PFA, CP, GLYHGB #### [facility] [address] [place] [address] Executive Officer: Savage Jacob MDGlucose [Mass/Vol]184 mg/vQBfhw74-13HfatyEmanate Health/Foothill Presbyterian HospitalComment on above:Performed By: #### CDP, PFA, CP, GLYHGB #### [address] [address] Executive Officer: HALEY Barahonaotassium [Moles/Vol]4.4 mmol/LNormal3.7-5.3 [facility] Medical CenterComment on above:Performed By: #### CDP, PFA, CP, GLYHGB #### [facility] [address] [place] [address] Executive Officer: ZANA Barahonaodium [Moles/Vol]143 mmol/SQayodq272-926ShrkwUniversity Hospitals Beachwood Medical CenterComment on above:Performed By: #### CDP, PFA, CP, GLYHGB #### [facility] [employer] [address] [place] [address] Executive Officer: Savage Jacob MDUrea nitrogen [Mass/Vol]57 mg/dLHigh8-23[facility] CenterComment on above:Performed By: #### CDP, PFA, CP, GLYHGB #### [facility] [address] [place] [address] Executive Officer: Savage Jacob MDBUN/CRE RatioNOT REPORTEDNormal9-20[facility] CenterComment on above:Performed By: #### CDP, PFA, CP, GLYHGB #### [facility] [address] [place] [address] Executive Officer: ZANA Barahonataging:NOT REPORTEDNormGuernsey Memorial HospitalComment on above:Performed By: #### CDP, PFA, CP, GLYHGB #### [facility] [employer] [address] [place] [address] Executive Officer: CASEY BarahonaALCIUM, IONIC (POC)on 21-17-1464UKM Ionized Calcium1.20 mmol/L1.15 - 1.33 mmol/LMhocking valley community hospitaly [facility], KYCBCon 07-21-2019 Erythrocyte distribution width (RBC) [Ratio]16.0 %High11.8-14.4[facility] CenterComment on above:Performed By: #### CDP, PFA, CP, GLYHGB #### [facility] [address] [place] [address] Executive Officer: Savage Jacob MDHematocrit (Bld) [Volume fraction]28.5 %Low 36.3-47.1MEmanate Health/Foothill Presbyterian HospitalComment on above:Performed By: #### CDP, PFA, CP, GLYHGB #### [facility] [employer] [address] [place] [address] Executive Officer: Savage Jacob MDHemoglobin (Bld) [Mass/Vol]8.5 g/dLLow11.9-15.1 [facility] CenterComment on above:Performed By: #### CDP, PFA, CP, GLYHGB #### [facility] [address] [place] [address] Executive Officer: ALISSA BarahonaCH (RBC) [Entitic mass]28.6 bxAxvshy06.2-33.5 [facility] CenterComment on above:Performed By: #### CDP, PFA, CP, GLYHGB #### [address] [address] Executive Officer: ALISSA BarahonaCHC (RBC) [Mass/Vol]29.8 g/xREhahcc99.4-34.8 [facility] CenterComment on above:Performed By: #### CDP, PFA, CP, GLYHGB #### [address] [address] Executive Officer: ALISSA BarahonaCV (RBC) [Entitic vol]96.0 hLNfuphd17.6-102.9 [facility] CenterComment on above:Performed By: #### CDP, PFA, CP, GLYHGB #### [address] [address] Executive Officer: Savage Jacob MDNRBC Automated0.0 per 100 WBCNormal0.0[facility] Medical CenterComment on above:Performed By: #### CDP, PFA, CP, GLYHGB #### [address] [address] Executive Officer: Taylor Barahonatemartine mean volume (Bld) [Entitic vol]10.0 fL Normal8.1-13.5[facility] Medical CenterComment on above:Performed By: #### CDP, PFA, CP, GLYHGB #### [address] [address] Executive Officer: aTylor Barahonatejimbo (Bld) [#/Vol]287 10*3/eCUxpilq252-930 [facility] CenterComment on above:Performed By: #### CDP, PFA, CP, GLYHGB #### [address] [address] Executive Officer: Savage Jacob MDRBC (Bld) [#/Vol]2.97 10*6/uLLow3.95-5.11[facility] Medical CenterComment on above:Performed By: #### CDP, PFA, CP, GLYHGB #### [facility] [address] [place], [place] [phone] Executive Officer: Savage Jacob MDWBC (Bld) [#/Vol]15.1 10*3/uLHigh3.5-11.3Mhocking valley community hospitaly Doctors Hospital Of West CovinaComment on above:Performed By: #### CDP, PFA, CP, GLYHGB #### [facility] [address] [place], [place] [phone] Executive Officer: Savage Jacob MDErythrocyte distribution width (RBC) [Ratio]16.0 %High11.8 - 14.4 %[facility], KYHematocrit (Bld) [Volume fraction]28.5 % Low36.3 - 47.1 %[facility], ORHemoglobin (Bld) [Mass/Vol]8.5 g/dLLow11.9 - 15.1 g/dLUniversity Hospitals Geneva Medical Center, ORInterpretation and review of laboratory results AbnormalUniversity Hospitals [facility], [facility] (RBC) [Entitic mass]28.6 pg25.2 - 33.5 pgUniversity Hospitals [facility] Center, [facility] STROUDHC (RBC) [Mass/Vol]29.8 g/dL28.4 - 34.8 g/dLUniversity Hospitals Geneva Medical Center, [place] MCV (RBC) [Entitic vol]96.0 fL82.6 - 102.9 fLUniversity Hospitals Geneva Medical Center, ORPlatelet mean volume (Bld) [Entitic vol]10.0 fL8.1 - 13.5 fLUniversity Hospitals Geneva Medical Center, KYPlatelets (Bld) [#/Vol]287 10*3/uLUniversity Hospitals Geneva Medical Center, KYRBC (Bld) [#/Vol]2.97 10*6/uLLow3.95 - 5.11 m/[facility], KYWBC (Bld) [#/Vol]15.1 10*3/uLHighUniversity Hospitals [facility], KYWBC (Bld) [#/Vol]0.0 10*3/uL0.0 per 100 WBCUniversity Hospitals Geneva Medical Center, KYCHLORIDE (POC)on 55-17-7705EVI Hfqthjbu676 mmol/L98 - 107 mmol/LMOur Lady of Mercy [facility] [place], [place] Creatinine W/GFR Point of Careon 24-98-2966RIL CommentUniversity Hospitals [facility] Center, KYGFR Bfijvql84 mL/minLow>60[facility], KYGFR Non- Iuzxgzbu14 mL/minLow >60[facility], KYPOC Creatinine1.78 mg/dLHigh0.51 - 1.19 mg/dLUniversity Hospitals Geneva [facility], KYCult,Bloodon [id number],BloodSpecimen Description .BLOOD Special Requests L ARM 10 CC Culture NO GROWTH 6 DAYS Report Status FINAL 07/21/2019[facility] - ColumbusComment on above:Performed By: #### CDP, PFA, CP, GLYHGB #### [facility] [address] [place] [address] Executive Officer: Brian Barahona,BloodSpecimen Description .BLOOD Special Requests R ARM 10 CC Culture NO GROWTH 6 DAYS Report Status FINAL 07/21/2019NoMercy Health West HospitalComment on above:Performed By: #### CDP, PFA, CP, GLYHGB #### [facility] [address] [place] [address] Executive Officer: CASEY Barahonaulture, Blood 1on 86-58-5049Mjcyibl RequestsL ARM 10 [facility], KYSpecial RequestsR ARM 10 [facility], [place] Hemoglobin and hematocrit, bloodon 08-44-4529JNI Bmzjfdwban07 %Low36 - 46 %[facility], ORPOC Hemoglobin9.5 g/dLLow12 - 16 g/dLUniversity Hospitals Geneva Medical Center, ORLactic Acid, POCon 47-60-1152OPW Lactic Acid0.95 mmol/L0.56 - 1.39 mmol/[facility], ORMagnesiumon 16-10-2862Xccblahfm [Mass/Vol]3.1 mg/dLHigh1.6-2.6MEmanate Health/Foothill Presbyterian HospitalComment on above:Performed By: #### CDP, PFA, CP, GLYHGB #### [facility] [address] [place] [address] Executive Officer: Miles Barahonagnesium [Mass/Vol]3.1 mg/dLHigh1.6 - 2.6 mg/dL [facility], OROtheron 09-63-9709Ojfragubnxiszq and review of laboratory resultsAbnoTriHealth Good Samaritan Hospital, ORInterpretation and review of laboratory resultsAbPomerene Hospital, ORInterpretation and review of laboratory resultsAbPomerene Hospital, ORCultureNO GROWTH 6 DAYSUniversity Hospitals [facility], [place] Specimen Description.BLOODUniversity [facility]als [facility], [facility] Glucose Fingerstickon 39-83-2977Hvdylfuyymteyi and review of laboratory resultsAbPomerene Hospital, ORPO Thbscww933 mg/uFYmky39 - 105 mg/dLUniversity Hospitals [facility], ORInterpretation and review of laboratory resultsAbnoTriHealth Good Samaritan [facility], [facility] Utchedh724 mg/dL High65 - 105 mg/dLUniversity [facility]als [facility], ORInterpretation and review of laboratory resultsAbnoTriHealth Good Samaritan Hospital, [facility] Egdnuib620 mg/dNPhea17 - 105 mg/dLUniversity Hospitals Geneva [facility] Center, ORPOCT Glucoseon 54-75-4986WYP Lfxhbbo858 mg/lGUuvx39 - 100 mg/dL [facility], ORPOTASSIUM (POC)on 19-19-2634QEF Potassium3.3 mmol/LLow3.5 - 4.5 mmol/LMOur Lady of Mercy [facility] - [facility], ORPTon 29-88-7086YGO Coag (PPP) [Relative time]1.2 {INR}NormalUniversity Hospitals Beachwood Medical CenterComment on above:Result Comment: Therapeutic Range: Moderate Anticoagulant Intensity: INR = 2.0-3.0 High Anticoagulant Intensity: INR = 2.5-3.5Performed By: #### CDP, PFA, CP, GLYHGB #### [facility] [address] [place], [place] [phone] Executive Officer: RIGO Barahona Coag (PPP) [Time]12.3 sHigh9.0-12.0University Hospitals Beachwood Medical CenterComment on above:Performed By: #### CDP, PFA, CP, GLYHGB #### [facility] [address] [place], [place] [phone] Executive Officer: Christo Barahona-INRon 10-05-3987PHO Coag (PPP) [Relative time]1.2 {INR}[facility], KYPT Coag (PPP) [Time]12.3 [facility], KYSODIUM (POC)on 39-08-0515PST Vrxoqg912 mmol/L138 - 146 mmol/LMercHCA Florida Trinity Hospital, KYXR CHEST (SINGLE VIEW FRONTAL)on 43-21-8785GaeagUniversity Hospitals Geneva Medical [facility], [facility], [facility], KYXR CHEST PORTABLEon 37-64-6195GB CHEST PORTABLEEXAMINATION: ONE XRAY VIEW OF THE [...] Signed by: Dmitry Mcelroy MD 07/21/19 Final resultNormalMerFremont Memorial Hospital, [facility], [facility], KYAPTTon 93-37-0000sEOD Coag (Bld) [Time]79.3 s High20.5-30.5University Hospitals Beachwood Medical CenterComment on above:Performed By: #### CDP, PFA, CP, GLYHGB #### [facility] [address] [place], [place] [phone] Executive Officer: Shalom Barahona Coag (Bld) [Time]79.3 [facility], KYInterpretation and review of laboratory resultsAbnormLakeHealth TriPoint Medical Center, KYaPTT Coag (Bld) [Time]68.2 sHigh20.5-30.5[facility] Comment on above:Performed By: #### CDP, PFA, CP, GLYHGB #### [facility] [address] [place] [phone] Executive Officer: Shalom Barahona Coag (Bld) [Time]68.2 [facility], KYInterpretation and review of laboratory resultsAbnormMount St. Mary Hospital [place], KYBasic Metabolic Panelon 08-38-7856Jjrwe gap [Moles/Vol]16 mmol/L9 - 17 mmol/L [facility]- [place], KYBun/Cre RatioNOT REPORTEDSt. [facility]- [place], KYCalcium [Mass/Vol]8.7 mg/dL8.6 - 10.4 mg/dLUniversity [facility]als [facility] [place], KYChloride [Moles/Vol]101 mmol/L98 - 107 mmol/LMtrinity health system twin [facility] Health- [place], KYCO2 [Moles/Vol]25 mmol/L20 - 31 mmol/L [facility]- [place], KYCreatinine [Mass/Vol]1.7 mg/dLHigh0.5 - 0.9 mg/dLSt. [facility]- [place], KYGFR Vutujobq55 mL/minLow>60[facility]- [place], KYGFR Comment [facility]- [place], KYGFR Non- Aiabjquv62 mL/minLow>60[facility]- [place], [place] GFR StagingNOT REPORTEDMer Health- [place], KYGlucose [Mass/Vol]174 mg/aAZcum70 - 99 mg/dLKettering Health Behavior[facility]- [place], KYPotassium [Moles/Vol]4.5 mmol/L3.7 - 5.3 mmol/LMercy Health- [place], KYSodium [Moles/Vol]142 mmol/L135 - 144 mmol/LMhocking valley community hospitaly Health- [place], [place] Urea nitrogen [Mass/Vol]51 mg/dLHigh8 - 23 mg/dLKettering Health Behavior[facility]- [place], KYBasic Metabolic Profon 07-20-2019(cont.)NormalUniversity Hospitals Beachwood Medical CenterComment on above:Result Comment: Average GFR for 70 or more years old: 75 mL/min/1.73sq m Chronic Kidney Disease: <60 mL/min/1.73sq m Kidney failure: <15 mL/min/1.73sq m eGFR calculated using average adult body mass. Additional eGFR calculator available at: http://www.[employer].Emergent Health/multiple_crcl_2012.htmPerformed By: #### CDP, PFA, CP, GLYHGB #### [facility] [address] [place] [address] Executive Officer: Savage Jacob MDAnion gap [Moles/Vol]16 mmol/LNormal9-17University [facility] Beachwood Medical CenterComment on above:Performed By: #### CDP, PFA, CP, GLYHGB #### [facility] [address] [place] [address] Executive Officer: CASEY Barahonaalcium [Mass/Vol]8.7 mg/dLNormal8.6-10.4[facility] Beachwood Medical CenterComment on above:Performed By: #### CDP, PFA, CP, GLYHGB #### [facility] [address] [place] [address] Executive Officer: Savage Jacob MDChloride [Moles/Vol]101 mmol/SDlmjmo81-415QnpbkUniversity Hospitals Beachwood Medical CenterComment on above:Performed By: #### CDP, PFA, CP, GLYHGB #### [facility] [address] [place] [address] Executive Officer: Savage Jacob MDCO2 [Moles/Vol]25 mmol/EDflvzz13-50YynlfUniversity Hospitals Beachwood Medical CenterComment on above:Performed By: #### CDP, PFA, CP, GLYHGB #### [facility] [address] [place] [address] Executive Officer: Savage Madoff, MDCreatinine [Mass/Vol]1.70 mg/dLHigh0.50-0.90 [facility] Medical CenterComment on above:Performed By: #### CDP, PFA, CP, GLYHGB #### [facility] [address] [place] [address] Executive Officer: Savage Jacob MDGFR, Amer36 mL/minLow>60MerParadise Valley HospitalComment on above:Performed By: #### CDP, PFA, CP, GLYHGB #### [facility] [address] [place] [address] Executive Officer: Savage Jacob MDGFR,non Amer30 mL/minLow>60[facility] Beachwood Medical CenterComment on above:Performed By: #### CDP, PFA, CP, GLYHGB #### [facility] [address] [place] [address] Executive Officer: Savage Jacob MDGlucose [Mass/Vol]174 mg/eOGlyp34-82Xpfby Doctors Hospital Of West CovinaComment on above:Performed By: #### CDP, PFA, CP, GLYHGB #### [facility] [address] [place] [address] Executive Officer: Savage Jacob MDPotassium [Moles/Vol]4.5 mmol/LNormal3.7-5.3 [facility] Medical CenterComment on above:Performed By: #### CDP, PFA, CP, GLYHGB #### [facility] [address] [place] [address] Executive Officer: Savage Jacob, MDSodium [Moles/Vol]142 mmol/VPxiaiu898-866BrtscUniversity Hospitals Beachwood Medical CenterComment on above:Performed By: #### CDP, PFA, CP, GLYHGB #### [facility] [address] [place] [address] Executive Officer: Savage Jacob MDUrea nitrogen [Mass/Vol]51 mg/dLHigh8-23MerFreeman Health SystemMccool Medical CenterComment on above:Performed By: #### CDP, PFA, CP, GLYHGB #### [facility] [address] [place] [address] Executive Officer: FELICITY Barahona/SHALINI BridgesOT REPORTEDNormal9-20[facility] Beachwood Medical CenterComment on above:Performed By: #### CDP, PFA, CP, GLYHGB #### [facility] [address] [place] [address] Executive Officer: ZANA Barahonataging:NOT REPORTEDNormalUniversity Hospitals Beachwood Medical CenterComment on above:Performed By: #### CDP, PFA, CP, GLYHGB #### [facility] [address] [place] [address] Executive Officer: Ulysses Barahona 76-58-8563Onqthdxatxf distribution width (RBC) [Ratio]16.2 %High11.8-14.4[facility] Medical CenterComment on above:Performed By: #### CDP, PFA, CP, GLYHGB #### [facility] [address] [place] [address] Executive Officer: Savage Jacob MDHematocrit (Bld) [Volume fraction]27.8 %Low 36.3-47.1MEmanate Health/Foothill Presbyterian HospitalComment on above:Performed By: #### CDP, PFA, CP, GLYHGB #### [facility] [address] [place] [address] Executive Officer: Savage Jacob MDHemoglobin (Bld) [Mass/Vol]8.6 g/dLLow11.9-15.1 [facility] Medical CenterComment on above:Performed By: #### CDP, PFA, CP, GLYHGB #### [facility] [address] [place] [address] Executive Officer: ALISSA BarahonaCH (RBC) [Entitic mass]29.1 uvXhssgn36.2-33.5 [facility] Medical CenterComment on above:Performed By: #### CDP, PFA, CP, GLYHGB #### [address] [address] Executive Officer: ALISSA BarahonaCHC (RBC) [Mass/Vol]30.9 g/qGKveezz05.4-34.8 [facility] Medical CenterComment on above:Performed By: #### CDP, PFA, CP, GLYHGB #### [address] [address] Executive Officer: ALISSA BarahonaCV (RBC) [Entitic vol]93.9 cYWtiypo09.6-102.9 [facility] Medical CenterComment on above:Performed By: #### CDP, PFA, CP, GLYHGB #### [address] [address] Executive Officer: Savage Jacob MDNRBC Automated0.1 per 100 WBCHigh0.0[facility] Beachwood Medical CenterComment on above:Performed By: #### CDP, PFA, CP, GLYHGB #### [facility] [address] [place] [address] Executive Officer: Daniel Barahona mean volume (Bld) [Entitic vol]10.2 fL Normal8.1-13.5[facility] Beachwood Medical CenterComment on above:Performed By: #### CDP, PFA, CP, GLYHGB #### [facility] [address] [place] [address] Executive Officer: Rico Barahona (Bld) [#/Vol]370 10*3/tZLtendd577-153 [facility] Medical CenterComment on above:Performed By: #### CDP, PFA, CP, GLYHGB #### [facility] [address] [place] [address] [phone] Executive Officer: ISABELLE BarahonaBC (Bld) [#/Vol]2.96 10*6/uLLow3.95-5.11[facility] Medical CenterComment on above:Performed By: #### CDP, PFA, CP, GLYHGB #### [facility] [address] [place], [place] [phone] Executive Officer: Savage Jacob MDWBC (Bld) [#/Vol]23.1 10*3/uLHigh3.5-11.3MEmanate Health/Foothill Presbyterian HospitalComment on above:Performed By: #### CDP, PFA, CP, GLYHGB #### [facility] [address] [place], [place] [phone] Executive Officer: Savage Jacob MDErythrocyte distribution width (RBC) [Ratio]16.2 %High11.8 - 14.4 %[facility], ORHematocrit (Bld) [Volume fraction]27.8 % Low36.3 - 47.1 %[facility], ORHemoglobin (Bld) [Mass/Vol]8.6 g/dLLow11.9 - 15.1 g/dLUniversity Hospitals [facility], ORInterpretation and review of laboratory results AbnormalUniversity Hospitals Geneva [facility] Center, ORMCH (RBC) [Entitic mass]29.1 pg25.2 - 33.5 pgUniversity Hospitals Geneva Medical Center, ORMCHC (RBC) [Mass/Vol]30.9 g/dL28.4 - 34.8 g/dLUniversity Hospitals [facility], [place] MCV (RBC) [Entitic vol]93.9 fL82.6 - 102.9 fLUniversity Hospitals Geneva Medical Center, ORPlatelet mean volume (Bld) [Entitic vol]10.2 fL8.1 - 13.5 fLUniversity Hospitals Geneva Medical Center, KYPlatelets (Bld) [#/Vol]370 10*3/uLUniversity Hospitals Geneva Medical Center, KYRBC (Bld) [#/Vol]2.96 10*6/uLLow3.95 - 5.11 m/[facility], KYWBC (Bld) [#/Vol]0.1 10*3/uLHigh0.0 per 100 WBC [facility]- [place], KYWBC (Bld) [#/Vol]23.1 10*3/uLHighMercy Health- [place], KYEKG 12 [place] 56-41-9163Vfravy Pftk13MZUFoqui Health- [place], KYP Zwcq19ogiuhzfPoium Health- [place], KYP-R Zhjbxnyi555 msMercy Health- [place], KYQ-T Mcivjxpt976 msMercy Health- [place], KYQRS Xhfhbjcu58 msMercy Health- [place], KYQTc Calculation (Bazett)437 msMercy Health- [place], KYR Uein99iwgyfskBotux Health- [place], KYT [place]-19degreesMercy Health- [place], KYVentricular Rwid78JNKEzojc Health- [place], KYMercy Health- [place], KYMercy Health- [place], KYAtrial Pmka60YEIEnasp Health- [place], KYP Qxvw61zypkacxAzdvg Health- [place], KYP-R Fnkuywwe119 msMercy Health- [place], KYQ-T Nozyrczg571 msMercy Health- [place], KYQRS Sqzkgrba40 msMercy Health- [place], KYQTc Calculation (zett)447 msMercy Health- [place], KYR Btzp76ogdqxduTmaaq Health- [place], KYT [place]-80degreesMercy Health- [place], KYVentricular Crjr54WSUDibbb Health- [place], KYMercy Health- [place], KYMercy Health- [place], KYMagnesiumon 89-82-5031Zqamnjsgt [Mass/Vol]2.8 mg/dLHigh1.6-2.6Mhocking valley community hospitaly Doctors Hospital Of West CovinaComment on above:Performed By: #### CDP, PFA, CP, GLYHGB #### [facility] [address] [place] [address] Executive Officer: Savage Jacob, MDMagnesium [Mass/Vol]2.8 mg/dLHigh1.6 - 2.6 mg/dL [facility]- [place], KYOtheron 17-94-1868Fipkuwryfgpkqy and review of laboratory resultsAbnormalKettering Health [facility]- [place], KYPOC Glucose Fingerstickon 07-20-2019 Interpretation and review of laboratory resultsAbnormLakeHealth TriPoint Medical Center, [facility] Hgtemwn432 mg/nUKsbf97 - 105 mg/dLUniversity Hospitals [facility], KYInterpretation and review of laboratory resultsAbnormLakeHealth TriPoint Medical Center, ORPO Niiohbe421 mg/qCCopo15 - 105 mg/dLUniversity [facility]als [facility], KYInterpretation and review of laboratory results AbnormalUniversity Hospitals Geneva [facility], ORPOC Pddxigs303 mg/hLNpju81 - 105 mg/dLUniversity [facility]als [facility], KYInterpretation and review of laboratory resultsAbnormLakeHealth TriPoint [facility] Center, ORPOC Jzxzuwe771 mg/jCDmkq73 - 105 mg/dLUniversity Hospitals [facility], KYInterpretation and review of laboratory resultsAbnoTriHealth Good Samaritan [facility], [facility] Nsvdxgq526 mg/dLHigh 65 - 105 mg/dLUniversity Hospitals [facility], KYPTon 35-10-4183QNU Coag (PPP) [Relative time] 1.1 {INR}NormalUniversity Hospitals Beachwood Medical CenterComment on above:Result Comment: Therapeutic Range: Moderate Anticoagulant Intensity: INR = 2.0-3.0 High Anticoagulant Intensity: INR = 2.5-3.5Performed By: #### CDP, PFA, CP, GLYHGB #### [facility] [address] [place] [address] Executive Officer: RIGO Barahona Coag (PPP) [Time]11.7 sNormal9.0-12.0[facility] Medical CenterComment on above:Performed By: #### CDP, PFA, CP, GLYHGB #### [facility] [address] [place], [place] [phone] Executive Officer: Reinaldo Barahona 97-32-7467Etjpivrzr [Mass/Vol]5.4 mg/dLHigh2.6 - 4.5 mg/dLUniversity Hospitals Geneva [facility], KYPhosphorus, Inorg.on 07-20-2019 Phosphorus, Inorg.5.4 mg/dLHigh2.6-4.5[facility] Medical CenterComment on above:Performed By: #### CDP, PFA, CP, GLYHGB #### [facility] [address] [place] [address] Executive Officer: Christo Barahona-INRon 80-07-9110CUO Coag (PPP) [Relative time]1.1 {INR}[facility], KYPT Coag (PPP) [Time]11.7 [facility], KYXR ABDOMEN FOR NG/OG/NE TUBE PLACEMENTon 23-83-0871PZ ABDOMEN FOR NG/OG/NE TUBE PLACEMENTEXAMINATION: ONE SUPINE [...] Signed by: Dm Marie MD 07/20/19 Final resultNoCommunity Memorial Hospital, [facility], [facility], [facility] 09-76-7706uFUG Coag (Bld) [Time]65.2 s High20.5-30.5[facility] Medical CenterComment on above:Performed By: #### CDP, PFA, CP, GLYHGB #### [facility] [address] [place], [place] [phone] Executive Officer: Shalom Barahona Coag (Bld) [Time]65.2 [facility], KYInterpretation and review of laboratory resultsAbnoTriHealth Good Samaritan Hospital, KYaPTT Coag (Bld) [Time]60.0 sHigh20.5-30.5[facility] Comment on above:Performed By: #### CDP, PFA, CP, GLYHGB #### [facility] [place], [place] [phone] Executive Officer: Delfino BarahonaT Coag (Bld) [Time]60.0 [facility], KYInterpretation and review of laboratory resultsAbnoTriHealth Good Samaritan Hospital, ORaPTT Coag (Bld) [Time]77.1 sHigh20.5-30.5[facility] Comment on above:Performed By: #### CDP, PFA, CP, GLYHGB #### [facility] [place] [address] Executive Officer: Shalom Barahonag (Bld) [Time]77.1 [facility], KYInterpretation and review of laboratory resultsAbnoTriHealth Good Samaritan Hospital, ORArterial Blood Gas, POCon 22-46-9922Djfdi TestPositiveUniversity Hospitals [facility], KYFIO2 40.0[facility], KYModePRVCMOur Lady of [facility], KYNegative Base Excess, ArtNOT REPORTEDUniversity [facility]als [facility], KYO2 Device/Flow/%Adult VentilatorUniversity Hospitals Geneva Medical Center, [facility] GXU736.1 mmol/LHigh21 - 28 mmol/LMOur Lady of Mercy Hospital - [facility], ORPOC O2 SAT98 %94 - 98 %[facility], [facility] cMB647.0[facility]- [place], [facility] pCO2 TempNOT REPORTED mm HgSt. [facility]'S [facility]- [place], ORPOC pH7.465HighSt. [facility]- [place], [facility] pH TempNOT [facility] [place], ORPOC YJ9834.3MMemorial Health System- [place], ORPO pO2 TempNOT REPORTEDmm HgSt. [facility]- [place], ORPositive Base Excess, Koy7WmscQhuev Health- [place], KYPt TempNOT [facility], KYSample SiteArterial LineUniversity Hospitals Conne[facility] [place], KYTCO2 (calc), Art29 mmol/L22 - 29 mmol/LMMemorial Health System- [place], KYSaint [facility] Metabolic Panelon 52-74-8749Qkirc gap [Moles/Vol]13 mmol/L9 - 17 mmol/LMMemorial Health System- [place], KYBun/Cre RatioNOT REPORTEDUniversity [facility]als [facility], KYCalcium [Mass/Vol]8.7 mg/dL8.6 - 10.4 mg/dLUniversity Hospitals Geneva Medical Center, KYChloride [Moles/Vol]99 mmol/L98 - 107 mmol/LMMemorial Health System- [place], KYCO2 [Moles/Vol]25 mmol/L20 - 31 mmol/LMMemorial Health System- [place], [place] Creatinine [Mass/Vol]1.67 mg/dLHigh0.5 - 0.9 mg/dLUniversity Hospitals Geneva [facility] Center, KYGFR Zdwgszpy43 mL/minLow>60[facility], KYGFR CommentMerKeenan Private Hospital, KYGFR Non- Rwymmgml68 mL/minLow>60[facility], KYGFR StagingNOT REPORTEDUniversity [facility]als [facility], KYGlucose [Mass/Vol]252 mg/gMGdih29 - 99 mg/dLUniversity Hospitals [facility], KYInterpretation and review of laboratory resultsAbnormalUniversity Hospitals [facility], KYPotassium [Moles/Vol]5.0 mmol/L3.7 - 5.3 mmol/[facility]- [place], KYSodium [Moles/Vol]137 mmol/L135 - 144 mmol/[facility]- [place], KYUrea nitrogen [Mass/Vol]44 mg/dLHigh8 - 23 mg/dLUniversity Hospitals [facility], [facility] Metabolic Profon 07-19-2019(cont.)[facility] - ColumbusComment on above:Result Comment: Average GFR for 70 or more years old: 75 mL/min/1.73sq m Chronic Kidney Disease: <60 mL/min/1.73sq m Kidney failure: <15 mL/min/1.73sq m eGFR calculated using average adult body mass. Additional eGFR calculator available at: http://www.[employer].Emergent Health/multiple_crcl_2012.htmPerformed By: #### CDP, PFA, CP, GLYHGB #### [facility] [address] [place] [address] Executive Officer: Savage Jacob MDAnion gap [Moles/Vol]13 mmol/LNormal9-17[facility] Medical CenterComment on above:Performed By: #### CDP, PFA, CP, GLYHGB #### [address] [address] Executive Officer: Savage Jacob MDCalcium [Mass/Vol]8.7 mg/dLNormal8.6-10.4[facility] Medical CenterComment on above:Performed By: #### CDP, PFA, CP, GLYHGB #### [address] [address] Executive Officer: Savage Jacob MDChloride [Moles/Vol]99 mmol/ZGknrky52-014YpnagUniversity Hospitals Beachwood Medical CenterComment on above:Performed By: #### CDP, PFA, CP, GLYHGB #### [facility] [employer] [address] [place] [address] Executive Officer: Savage Jacob MDCO2 [Moles/Vol]25 mmol/WVwmesf45-65EuuwmUniversity Hospitals Beachwood Medical CenterComment on above:Performed By: #### CDP, PFA, CP, GLYHGB #### [address] [address] Executive Officer: Savage Jacob MDCreatinine [Mass/Vol]1.67 mg/dLHigh0.50-0.90 [facility] Medical CenterComment on above:Performed By: #### CDP, PFA, CP, GLYHGB #### [facility] [address] [place] [address] Executive Officer: SALLY Barahona, Amer37 mL/minLow>60[facility] Medical CenterComment on above:Performed By: #### CDP, PFA, CP, GLYHGB #### [facility] [address] [place] [address] Executive Officer: Savage Jacob MDGFR,non Amer30 mL/minLow>60[facility] CenterComment on above:Performed By: #### CDP, PFA, CP, GLYHGB #### [facility] [address] [place] [address] Executive Officer: Savage Jacob MDGlucose [Mass/Vol]252 mg/zRPxex50-07QfenbEmanate Health/Foothill Presbyterian HospitalComment on above:Performed By: #### CDP, PFA, CP, GLYHGB #### [facility] [address] [place] [address] Executive Officer: HALEY Barahonaotassium [Moles/Vol]5.0 mmol/LNormal3.7-5.3 [facility] Medical CenterComment on above:Performed By: #### CDP, PFA, CP, GLYHGB #### [facility] [address] [place] [address] Executive Officer: ZANA Barahonaodium [Moles/Vol]137 mmol/WBoahik039-995VykwrUniversity Hospitals Beachwood Medical CenterComment on above:Performed By: #### CDP, PFA, CP, GLYHGB #### [facility] [address] [place] [address] Executive Officer: Savage Jacob MDUrea nitrogen [Mass/Vol]44 mg/dLHigh8-23University Hospitals Beachwood Medical CenterComment on above:Performed By: #### CDP, PFA, CP, GLYHGB #### [facility] [address] [place] [address] Executive Officer: FELICITY Barahona/SHALINI Ziegler REPORTEDNormal9-20[facility]als Beachwood Medical CenterComment on above:Performed By: #### CDP, PFA, CP, GLYHGB #### [facility] [address] [place] [address] Executive Officer: ZANA Barahonataging:NOT REPORTEDNormalUniversity Hospitals Beachwood Medical CenterComment on above:Performed By: #### CDP, PFA, CP, GLYHGB #### [facility] [employer] [address] [place] [address] Executive Officer: CASEY BarahonaBCon 62-10-3570Ddscptmhazb distribution width (RBC) [Ratio]15.9 %High11.8-14.4[facility] Beachwood Medical CenterComment on above:Performed By: #### CDP, PFA, CP, GLYHGB #### [facility] [employer] [address] [place] [address] Executive Officer: Savage Jacob MDHematocrit (Bld) [Volume fraction]26.6 %Low 36.3-47.1MEmanate Health/Foothill Presbyterian HospitalComment on above:Performed By: #### CDP, PFA, CP, GLYHGB #### [facility] [employer] [address] [place] [address] Executive Officer: Savage Jacob MDHemoglobin (Bld) [Mass/Vol]8.3 g/dLLow11.9-15.1 [facility] Medical CenterComment on above:Performed By: #### CDP, PFA, CP, GLYHGB #### [facility] [address] [place] [address] Executive Officer: ALISSA BarahonaCH (RBC) [Entitic mass]28.7 fwVsqtdo95.2-33.5 [facility]wood Medical CenterComment on above:Performed By: #### CDP, PFA, CP, GLYHGB #### [facility] [address] [place] [address] Executive Officer: ALISSA BarahonaCHC (RBC) [Mass/Vol]31.2 g/qWTsmjuq23.4-34.8 [facility] CenterComment on above:Performed By: #### CDP, PFA, CP, GLYHGB #### [address] [address] Executive Officer: ALISSA BarahonaCV (RBC) [Entitic vol]92.0 mWWlddlr57.6-102.9 [facility] Medical CenterComment on above:Performed By: #### CDP, PFA, CP, GLYHGB #### [address] [address] Executive Officer: ILANA Barahona Automated0.0 per 100 WBCNormal0.0[facility] Beachwood Medical CenterComment on above:Performed By: #### CDP, PFA, CP, GLYHGB #### [address] [address] Executive Officer: Taylor Barahonatemartine mean volume (Bld) [Entitic vol]10.5 fL Normal8.1-13.5[facility] Beachwood Medical CenterComment on above:Performed By: #### CDP, PFA, CP, GLYHGB #### [address] [address] Executive Officer: Taylor Barahonatelets (Bld) [#/Vol]244 10*3/gKSortrm524-190 [facility] Medical CenterComment on above:Performed By: #### CDP, PFA, CP, GLYHGB #### [address] [address] Executive Officer: ISABELLE BarahonaBC (Bld) [#/Vol]2.89 10*6/uLLow3.95-5.11[facility] Beach[facility] Medical CenterComment on above:Performed By: #### CDP, PFA, CP, GLYHGB #### [address] [address] Executive Officer: Savage Jacob MDWBC (Bld) [#/Vol]19.4 10*3/uLHigh3.5-11.3[facility] Hospital Of West CovinaComment on above:Performed By: #### CDP, PFA, CP, GLYHGB #### [facility] [address] [place] [address] Executive Officer: Savage Jacob MDErythrocyte distribution width (RBC) [Ratio]15.9 %High11.8 - 14.4 %[facility], ORHematocrit (Bld) [Volume fraction]26.6 % Low36.3 - 47.1 %[facility], KYHemoglobin (Bld) [Mass/Vol]8.3 g/dLLow11.9 - 15.1 g/dLUniversity Hospitals Conneaut Medical [facility] [place], ORInterpretation and review of laboratory results AbnormalSt. [facility]- [place], [facility] (RBC) [Entitic mass]28.7 pg25.2 - 33.5 pgUniversity Hospitals Conneaut Medical [facility] [place], KYMCHC (RBC) [Mass/Vol]31.2 g/dL28.4 - 34.8 g/dLUniversity Hospitals Geneva Medical Center, [place] MCV (RBC) [Entitic vol]92.0 fL82.6 - 102.9 fLUniversity Hospitals Geneva Medical Center, ORPlatelet mean volume (Bld) [Entitic vol]10.5 fL8.1 - 13.5 fLSt. Mary'S Medical [facility]- [place], KYPlatelets (Bld) [#/Vol]244 10*3/uLSt. Mary'S [facility]- [place], KYRBC (Bld) [#/Vol]2.89 10*6/uLLow3.95 - 5.11 m/uLSt. Mary'S [facility]- [place], KYWBC (Bld) [#/Vol]19.4 10*3/uLHighUniversity Hospitals Geneva Medical Center, KYWBC (Bld) [#/Vol]0.0 10*3/uL0.0 per 100 WBCSt. Mary'S Medical [facility]- [place], KYExtubation on 69-32-8170Xggco [facility]- [place], KYHematologyon 42-10-1551Vanbn product type Nom (BPU)Leukocyte Reduced Red CellUniversity Hospitals Geneva Medical Center, ORMagnesiumon 07-19-2019 Magnesium [Mass/Vol]2.5 mg/dLNormal1.6-2.6[facility] Comment on above:Performed By: #### CDP, PFA, CP, GLYHGB #### [facility] [address] [place], [place] [id number] Executive Officer: Savage Jacob, MDMagnesium [Mass/Vol]2.5 mg/dL1.6 - 2.6 mg/dL [facility], KYOtheron 08-49-3328Cjfygjzehz ResultCOMPATIBLEUniversity Hospitals Geneva Medical Center, ORCrossmatch ResultINCOMPATIBLEUniversity Hospitals Geneva Medical Center, ORDispense StatusREL FROM ALLOCUniversity Hospitals [facility], KYTransfusion StatusOK TO TRANSFUSEUniversity Hospitals [facility], [place] Transfusion StatusDO NOT ISSUE FOR TRANSFUSIONUniversity Hospitals Geneva Medical Center, ORUnit Divison0 [facility], ORInterpretation and review of laboratory resultsAbnoTriHealth Good Samar[facility], [facility] Glucose Fingerstickon 55-06-1569Bmjubjiefoggup and review of laboratory resultsAbPomerene Hospital, ORPO Cuqjcuq315 mg/sOQiej25 - 105 mg/dLUniversity Hospitals [facility], ORInterpretation and review of laboratory resultsAbnoal [facility], ORPO Lomqbpr208 mg/fSUwdk64 - 105 mg/dLUniversity Hospitals Geneva Medical Center, [place] Interpretation and review of laboratory resultsAbnoTriHealth Good Samar[facility], [facility] Yxaqwtc704 mg/aZXeop50 - 105 mg/dLUniversity Hospitals Geneva [facility], ORInterpretation and review of laboratory resultsAbnoTriHealth Good Samaritan [facility], [facility] Ajgzqpr850 mg/nMLsxj32 - 105 mg/dLUniversity Hospitals Geneva Medical Center, KYPOCT Glucoseon 29-24-2022SJE Dfekjhl447 mg/jZXpxs04 - 100 mg/dLUniversity Hospitals Geneva Medical Center, KYPTon 37-66-4623CVJ Coag (PPP) [Relative time]1.1 {INR}NormalUniversity Hospitals Beachwood Medical CenterComment on above:Result Comment: Therapeutic Range: Moderate Anticoagulant Intensity: INR = 2.0-3.0 High Anticoagulant Intensity: INR = 2.5-3.5Performed By: #### CDP, PFA, CP, GLYHGB #### [facility] [address] [place] [address] Executive Officer: RIGO Barahona Coag (PPP) [Time]11.1 sNormal9.0-12.0[facility] Beachwood Medical CenterComment on above:Performed By: #### CDP, PFA, CP, GLYHGB #### [facility] [address] [place] [address] Executive Officer: HALEY Barahonarotime-INRon 63-20-2117BIZ Coag (PPP) [Relative time]1.1 {INR}[facility]- [place], KYPT Coag (PPP) [Time]11.1 sMercy [facility]- [place], KYTYPE AND SCREENon 60-83-4511FHI/RhPositiveMercy Health- [place], KYAntibody IDMercy Health- [place], KYAntigen Type, PatientMercy Health- [place], KYArm Band NumberBE [id number] [facility]- [place], KYDAT IgGNegativeMercy Health- [place], KYDispense StatusTRANSFUSED [facility]- [place], KYExpiration Date07/19/2019,2359[facility]- [place], KYUnit [id number] Health- [place], KYUnit [id number] Health- [place], KYUnit [id number] Health- [place], KYUnit [id number] Health- [place], KYUnit [id number] Health- [place], KYXR ABDOMEN FOR NG/OG/NE TUBE PLACEMENTon 59-46-9518GG ABDOMEN FOR NG/OG/NE TUBE PLACEMENT EXAMINATION: ONE [...] Signed by: Oscar Joshi MD 07/19/19 Final resultNormACMC Healthcare System Glenbeigh- [place], KYSt. [facility]- [place], KYSt. [facility]- [place], KYAPTTon 31-13-3311mYUU Coag (Bld) [Time]54.1 s High20.5-30.5[facility] Beachwood Medical CenterComment on above:Performed By: #### CDP, PFA, CP, GLYHGB #### [facility] [address] [id number] Executive Officer: Shalom Barahona Coag (Bld) [Time]54.1 sHigUniversity Hospitals Beachwood Medical Center, KYInterpretation and review of laboratory resultsAbnormalUniversity Hospitals Geneva Medical Center, ORArterial Blood Gas, POCon 85-48-6972Oiugp TestNOT APPLICABLEUniversity Hospitals Geneva Medical Center, IKXZN419.0[facility], KYInterpretation and review of laboratory results AbnormalUniversity Hospitals [facility] Medical Center, KYModePRVCMWVUMedicine Harrison [facility] [place], KYNegative Base Excess, ArtNOT REPORTEDUniversity Hospitals [facility], KYO2 Device/Flow/%Adult VentilatorUniversity Hospitals Geneva Medical Center, [facility] IZX562.5 mmol/L21 - 28 mmol/[facility]UM[facility] [place], [facility] O2 SAT97 %94 - 98 %[facility], [facility] vEO673.1MOur Lady of [facility], [facility] pCO2 TempNOT REPORTEDmm HgUniversity Hospitals Conneaut Medical Center [place], [facility] pH7.467HighSt. [facility]- [place], [facility] pH Temp NOT REPORTEDUniversity Hospitals [facility], [facility] PO281.0LowSt. [facility]'S [facility]- [place], [facility] pO2 Temp NOT REPORTEDmm HgSt. [facility]- [place], ORPositive Base Excess, Lju2BdhbNgrux Health- [place], KYPt TempNOT REPORTEDUniversity Hospitals Geneva Medical [facility], ORSample SiteArterial LineUniversity Hospitals Geneva Medical Center, ORTCO2 (calc), Art29 mmol/L22 - 29 mmol/LMMemorial Health System- [place], KYBasic Metabolic Panelon 02-27-8145Fyqkf gap [Moles/Vol]16 mmol/L9 - 17 mmol/LMercy Health- [place], KYBun/Cre RatioNOT REPORTEDMerSeattle VA Medical Center- [place], KYCalcium [Mass/Vol]8.8 mg/dL8.6 - 10.4 mg/dLSt. [facility]- [place], KYChloride [Moles/Vol]97 mmol/LLow98 - 107 mmol/LMercy Health- [place], KYCO2 [Moles/Vol]25 mmol/L20 - 31 mmol/LMercy Health- [place], KYCreatinine [Mass/Vol]1.68 mg/dLHigh0.5 - 0.9 mg/dLSt. [facility]- [place], KYGFR Ldfvaerv87 mL/minLow>60Mer [facility]- [place], KYGFR CommentMerSeattle VA Medical Center- [place], KYGFR Non- Coijrlqm62 mL/minLow>60Mer [facility]- [place], KYGFR StagingNOT REPORTEDMerSeattle VA Medical Center- [place], KYGlucose [Mass/Vol]190 mg/nYClwl97 - 99 mg/dLSt. [facility]- [place], KYPotassium [Moles/Vol]4.0 mmol/L3.7 - 5.3 mmol/LMercy Health- [place], KYSodium [Moles/Vol]138 mmol/L135 - 144 mmol/LMercy Health- [place], [place] Urea nitrogen [Mass/Vol]34 mg/dLHigh8 - 23 mg/dLSt. [facility]- [place], KYBasic Metabolic Profon 07-18-2019(cont.)[facility] Hospital - ColumbusComment on above:Result Comment: Average GFR for 70 or more years old: 75 mL/min/1.73sq m Chronic Kidney Disease: <60 mL/min/1.73sq m Kidney failure: <15 mL/min/1.73sq m eGFR calculated using average adult body mass. Additional eGFR calculator available at: http://www.[employer].[facility]/multiple_crcl_2012.htmPerformed By: #### CDP, PFA, CP, GLYHGB #### [facility] [address] [place] [address] Executive Officer: Chayito Barahona gap [Moles/Vol]16 mmol/LNormal9-17[facility] Beachwood Medical CenterComment on above:Performed By: #### CDP, PFA, CP, GLYHGB #### [facility] [address] [place] [address] Executive Officer: Savage Jacob MDCalcium [Mass/Vol]8.8 mg/dLNormal8.6-10.4[facility] Beachwood Medical CenterComment on above:Performed By: #### CDP, PFA, CP, GLYHGB #### [facility] [address] [place] [address] Executive Officer: CASEY Barahonahloride [Moles/Vol]97 mmol/KHkg42-821InrlbUniversity Hospitals Beachwood Medical CenterComment on above:Performed By: #### CDP, PFA, CP, GLYHGB #### [facility] [employer] [address] [place] [address] Executive Officer: Savage Jacob MDCO2 [Moles/Vol]25 mmol/IPgesgt38-37BaqfqUniversity Hospitals Beachwood Medical CenterComment on above:Performed By: #### CDP, PFA, CP, GLYHGB #### [facility] [employer] [address] [place] [address] Executive Officer: Savage Jacob MDCreatinine [Mass/Vol]1.68 mg/dLHigh0.50-0.90 [facility] Medical CenterComment on above:Performed By: #### CDP, PFA, CP, GLYHGB #### [facility] [address] [place] [address] Executive Officer: SALLY Barahona, Amer37 mL/minLow>60[facility] Medical CenterComment on above:Performed By: #### CDP, PFA, CP, GLYHGB #### [facility] [address] [place] [address] Executive Officer: SALLY Barahona,non Amer30 mL/minLow>60[facility]wood Medical CenterComment on above:Performed By: #### CDP, PFA, CP, GLYHGB #### [facility] [address] [place] [address] Executive Officer: Savage Jacob MDGlucose [Mass/Vol]190 mg/vOBeai85-01LejieEmanate Health/Foothill Presbyterian HospitalComment on above:Performed By: #### CDP, PFA, CP, GLYHGB #### [place] [address] Executive Officer: HALEY Barahoanotassium [Moles/Vol]4.0 mmol/LNormal3.7-5.3 [facility] Medical CenterComment on above:Performed By: #### CDP, PFA, CP, GLYHGB #### [place] [address] Executive Officer: ZANA Barahonaodium [Moles/Vol]138 mmol/TExskbl578-031CgzycUniversity Hospitals Beachwood Medical CenterComment on above:Performed By: #### CDP, PFA, CP, GLYHGB #### [place] [address] Executive Officer: Savage Jacob MDUrea nitrogen [Mass/Vol]34 mg/dLHigh8-23[facility]wood Medical CenterComment on above:Performed By: #### CDP, PFA, CP, GLYHGB #### [place] [address] Executive Officer: Savage Jacob MDBUN/CRE RatioNOT REPORTEDNormal9-20[facility]wood Medical CenterComment on above:Performed By: #### CDP, PFA, CP, GLYHGB #### [facility] [employer] [address] [place] [address] Executive Officer: ZANA Barahonataging:NOT REPORTEDNormalUniversity Hospitals Beachwood Medical CenterComment on above:Performed By: #### CDP, PFA, CP, GLYHGB #### [address] [address] Executive Officer: CASEY BarahonaBCstarla 67-72-6160XDXL Automated0.5 per 100 WBC High0.0[facility] Beachwood Medical CenterComment on above:Performed By: #### CDP, PFA, CP, GLYHGB #### [address] [address] Executive Officer: Savage Jacob MDErythrocyte distribution width (RBC) [Ratio]15.9 %High11.8-14.4[facility], KYComment on above:Performed By: #### CDP, PFA, CP, GLYHGB #### [address] [address] Executive Officer: Savage Jacob MDHematocrit (Bld) [Volume fraction]26.3 %Low 36.3-47.1MOur Lady of [facility], KYComment on above:Performed By: #### CDP, PFA, CP, GLYHGB #### [address] [address] Executive Officer: Savage Jacob MDHemoglobin (Bld) [Mass/Vol]8.4 g/dLLow11.9-15.1 [facility], KYComment on above:Performed By: #### CDP, PFA, CP, GLYHGB #### [facility] [employer] [address] [place] [address] Executive Officer: ALISSA BarahonaCH (RBC) [Entitic mass]29.4 umMzunmy38.2-33.5 [facility], KYComment on above:Performed By: #### CDP, PFA, CP, GLYHGB #### [facility] [employer] [address] [place] [address] Executive Officer: ALISSA BarahonaCHC (RBC) [Mass/Vol]31.9 g/oYPhmzdq41.4-34.8 [facility], KYComment on above:Performed By: #### CDP, PFA, CP, GLYHGB #### [address] [address] Executive Officer: DIANA Barahona (RBC) [Entitic vol]92.0 zIGpruoo08.6-102.9 [facility], KYComment on above:Performed By: #### CDP, PFA, CP, GLYHGB #### [address] [address] Executive Officer: Daniel Barahona mean volume (Bld) [Entitic vol]10.6 fL Normal8.1-13.5[facility], KYComment on above:Performed By: #### CDP, PFA, CP, GLYHGB #### [address] [address] Executive Officer: Rico Barahona (Bld) [#/Vol]246 10*3/fJXvbxbr317-416 [facility], KYComment on above:Performed By: #### CDP, PFA, CP, GLYHGB #### [address] [address] Executive Officer: ISABELLE BarahonaBC (Bld) [#/Vol]2.86 10*6/uLLow3.95-5.11[facility], KYComment on above:Performed By: #### CDP, PFA, CP, GLYHGB #### [address] [address] Executive Officer: PETR Barahona (Bld) [#/Vol]21.3 10*3/uLHigh3.5-11.3MOur Lady of [facility], KYComment on above:Performed By: #### CDP, PFA, CP, GLYHGB #### [address] [phone] Executive Officer: Savage Jacob MDInterpretation and review of laboratory results AbnormalMercy Health- [place], KYWBC (Bld) [#/Vol]0.5 10*3/uLHigh0.0 per 100 WBCMercy Health- [place], KYEKG 12 [place]on 05-83-1572Bzrprf Ouwc39DDWThkjr Health- [place], KYP Zroj91tibixfhPiqqz Health- [place], KYP-R Ejmrepmq892 msMercy Health- [place], KYQ-T Yaooaskt896 msMercy Health- [place], KYQRS Uimfohyn92 msMercy Health- [place], KYQTc Calculation (Bazett)427 msMercy Health- [place], KYR Cten85dqmfyxeOehty Health- [place], KYT [place]-33degreesMercy Health- [place], KYVentricular Sjnd62AMPMptqk Health- [place], [place] [facility]- [place], KYMercy [facility]- [place], KYAtrial Mmzf72NUMHliaq Health- [place], KYP Gjau23rcmxwzdLzecg Health- [place], KYP-R Cflcecbi423 msMercy Health- [place], KYQ-T Ccmgiego111 msMercy Health- [place], KYQRS Bnfhdgxo40 msMercy Health- [place], KYQTc Calculation (Bazett)405 msMercy Health- [place], KYR Nirx92onuptihTukns Health- [place], KYT [place]-12degreesMercy Health- [place], KYVentricular Vowf88MJKUkaiu Health- [place], [place] [facility]- [place], KYMercy Health- [place], KYMagnesiumon 35-22-4017Hbepfqxek [Mass/Vol]2.3 mg/dLNormal1.6-2.6Mer[facility] Hospital Of West CovinaComment on above:Performed By: #### CDP, PFA, CP, GLYHGB #### [facility] [address] [place], [place] [id number] Executive Officer: Savage Jacob MDMagnesium [Mass/Vol]2.3 mg/dL1.6 - 2.6 mg/dL [facility]- [place], KYOtheron 12-29-9048Szlzyerhhgsmzk and review of laboratory resultsAbnormalDayton Children'S Hospitalcy Health- [place], KYPOC Glucose Fingerstickon 07-18-2019 Interpretation and review of laboratory resultsAbnoTriHealth Good Sam[facility], [facility] Vuddmet735 mg/uTSxmm66 - 105 mg/dLUniversity [facility]als [facility], KYInterpretation and review of laboratory resultsAbnoTriHealth Good Samaritan Hospital, ORPO Migtbbi095 mg/cPMmbc49 - 105 mg/dLUniversity Hospitals [facility], KYInterpretation and review of laboratory results AbnormalUniversity Hospitals [facility], ORPO Egsfhbt458 mg/vLAsvv99 - 105 mg/dLUniversity Hospitals [facility], KYInterpretation and review of laboratory resultsAbnoTriHealth Good [facility], [facility] Bugnghb098 mg/cUQhih75 - 105 mg/dLUniversity Hospitals [facility], KYInterpretation and review of laboratory resultsAbnoTriHealth Good Samar[facility], [facility] Geseylt727 mg/dLHigh 65 - 105 mg/dLUniversity [facility]als [facility], KYInterpretation and review of laboratory resultsAbnoTriHealth Good Samaritan [facility], [facility] Oppnnbw104 mg/aZTsjj45 - 105 mg/dLUniversity Hospitals [facility], KYPTon 99-85-4612WJN Coag (PPP) [Relative time]1.1 {INR}NormalUniversity Hospitals Beachwood Medical CenterComment on above:Result Comment: Therapeutic Range: Moderate Anticoagulant Intensity: INR = 2.0-3.0 High Anticoagulant Intensity: INR = 2.5-3.5Performed By: #### CDP, PFA, CP, GLYHGB #### [facility] [address] [place] [address] Executive Officer: RIGO Barahona Coaanum (PPP) [Time]11.3 sNormal9.0-12.0[facility] Medical CenterComment on above:Performed By: #### CDP, PFA, CP, GLYHGB #### [facility] [address] [place] [address] Executive Officer: Reinaldo Barahona 83-32-7368Rudjkdogx [Mass/Vol]4.8 mg/dLHigh2.6 - 4.5 mg/dLUniversity Hospitals Geneva Medical Center, KYPhosphorus, Inorg.on 07-18-2019 Phosphorus, Inorg.4.8 mg/dLHigh2.6-4.5[facility] Medical CenterComment on above:Performed By: #### CDP, PFA, CP, GLYHGB #### [facility] [address] [place] [address] Executive Officer: AHLEY Barahonarotime-INRon 37-92-1101PID Coag (PPP) [Relative time]1.1 {INR}[facility], KYPT Coag (PPP) [Time]11.3 [facility], KYXR CHEST PORTABLEon 28-54-2955XY CHEST PORTABLEEXAMINATION: ONE XRAY VIEW OF THE [...] Signed by: Red Sheets MD 07/18/19 Final resultNormalMarietta Memorial Hospital, [facility], [facility], KYAPTTon 04-33-7760yLJQ Coag (Bld) [Time]59.8 s High20.5-30.5[facility] Medical CenterComment on above:Performed By: #### CDP, PFA, CP, GLYHGB #### [facility] [address] [place] [phone] Executive Officer: Savage Jacob MDaPTT Coag (Bld) [Time]59.8 sHighMercy Health- [place], KYInterpretation and review of laboratory resultsAbnormalMer Health- [place], ORArterial Blood Gas, POCon 96-72-4704Bihed TestNOT REPORTEDMercy Health- [place], [place] EVN5XUE REPORTEDMercy [facility]- [place], KYModeNOT REPORTEDMercy [facility]- [place], KYNegative Base Excess, ArtNOT REPORTEDMercy Health- [place], KYO2 Device/Flow/%NOT REPORTED [facility]- [place], KYPOC OBR229.0 mmol/LHigh21 - 28 mmol/LMercy Health- [place], KYPOC O2 SAT96 %94 - 98 %[facility]- [place], ORPOC ySA744.0[facility]- [place], [facility] pCO2 TempNOT REPORTEDmm HgMercy Health- [place], ORPOC pH7.529HighMercy Health- [place], ORPO pH TempNOT REPORTEDMercy Health- [place], KYPOC PO269.6LowMercy Health- [place], ORPO pO2 TempNOT REPORTEDmm HgMercy Health- [place], KYPositive Base Excess, Huc5HjaxWgjrr Health- [place], KYPt TempNOT REPORTEDMercy Health- [place], KYSample SiteArterial Line [facility]- [place], KYTCO2 (calc), Art31 mmol/LHigh22 - 29 mmol/LMercy Health- [place], KYBasic Metabolic Panelon 93-67-5869Dngkt gap [Moles/Vol]13 mmol/L9 - 17 mmol/L [facility]- [place], KYBun/Cre RatioNOT REPORTEDMercy Health- [place], KYCalcium [Mass/Vol]8.5 mg/dLLow8.6 - 10.4 mg/dLMercy Health- [place], KYChloride [Moles/Vol]99 mmol/L98 - 107 mmol/LMercy Health- [place], KYCO2 [Moles/Vol]25 mmol/L20 - 31 mmol/L [facility]- [place], KYCreatinine [Mass/Vol]1.34 mg/dLHigh0.5 - 0.9 mg/dLMercy Health- [place], KYGFR Iifjnsud12 mL/minLow>60[facility]- [place], KYGFR Comment [facility]- [place], KYGFR Non- Otywbywz56 mL/minLow>60[facility]- [place], [place] GFR StagingNOT REPORTEDUniversity Hospitals [facility], KYGlucose [Mass/Vol]234 mg/yMMcqw13 - 99 mg/dLUniversity Hospitals [facility] Center, ORInterpretation and review of laboratory results AbnormalUniversity Hospitals Geneva Medical Center, KYPotassium [Moles/Vol]4.1 mmol/L3.7 - 5.3 mmol/LMOur Lady of [facility], KYSodium [Moles/Vol]137 mmol/L135 - 144 mmol/[facility], [place] Urea nitrogen [Mass/Vol]33 mg/dLHigh8 - 23 mg/dLUniversity Hospitals [facility], KYBasic Metabolic Profon 07-17-2019(cont.)NormalUniversity Hospitals Beachwood Medical CenterComment on above:Result Comment: Average GFR for 70 or more years old: 75 mL/min/1.73sq m Chronic Kidney Disease: <60 mL/min/1.73sq m Kidney failure: <15 mL/min/1.73sq m eGFR calculated using average adult body mass. Additional eGFR calculator available at: http://www.[employer]/multiple_crcl_2012.htmPerformed By: #### CDP, PFA, CP, GLYHGB #### [facility] [address] [place] [address] Executive Officer: Savage Jacob MDAnion gap [Moles/Vol]13 mmol/LNormal9-17University [facility]als Beachwood Medical CenterComment on above:Performed By: #### CDP, PFA, CP, GLYHGB #### [facility] [address] [place] [address] Executive Officer: CASEY Barahonaalcium [Mass/Vol]8.5 mg/dLLow8.6-10.4University [facility]als Beachwood Medical CenterComment on above:Performed By: #### CDP, PFA, CP, GLYHGB #### [facility] [address] [place] [address] [phone] Executive Officer: CASEY Barahonahloride [Moles/Vol]99 mmol/LPmuyta81-704KkroyUniversity Hospitals Beachwood Medical CenterComment on above:Performed By: #### CDP, PFA, CP, GLYHGB #### [facility] [address] [place] [address] 28867 Executive Officer: Savage Jacob MDCO2 [Moles/Vol]25 mmol/GOqeqkz75-78ZieywUniversity Hospitals Beachwood Medical CenterComment on above:Performed By: #### CDP, PFA, CP, GLYHGB #### [facility] [address] [place] [address] 17899 Executive Officer: CASEY Barahonareatinine [Mass/Vol]1.34 mg/dLHigh0.50-0.90 [facility] Beachwood Medical CenterComment on above:Performed By: #### CDP, PFA, CP, GLYHGB #### [facility] [address] [place] [address] 35342 Executive Officer: Savage Jacob MDGFR, Amer47 mL/minLow>60[facility] Beachwood Medical CenterComment on above:Performed By: #### CDP, PFA, CP, GLYHGB #### [facility] [address] [place] [address] 27681 Executive Officer: Savage Jacob MDGFR,non Amer39 mL/minLow>60[facility] Beachwood Medical CenterComment on above:Performed By: #### CDP, PFA, CP, GLYHGB #### [facility] [address] [place] [address] 55677 Executive Officer: Savage Jacob MDGlucose [Mass/Vol]234 mg/dTUjwq31-14Yuxll Doctors Hospital Of West CovinaComment on above:Performed By: #### CDP, PFA, CP, GLYHGB #### [facility] [address] [place] [address] 65551 Executive Officer: Saavge Jacob MDPotassium [Moles/Vol]4.1 mmol/LNormal3.7-5.3 [facility] Beachwood Medical CenterComment on above:Performed By: #### CDP, PFA, CP, GLYHGB #### [facility] [address] [place] [address] 56098 Executive Officer: ZANA Barahonaodium [Moles/Vol]137 mmol/SIayhaa921-100VtsklUniversity Hospitals Beachwood Medical CenterComment on above:Performed By: #### CDP, PFA, CP, GLYHGB #### [facility] [address] [place] [place] [address] Executive Officer: Savage Jacob MDUrea nitrogen [Mass/Vol]33 mg/dLHigh8-23[facility]als Beachwood Medical CenterComment on above:Performed By: #### CDP, PFA, CP, GLYHGB #### [facility] [address] [place] [address] Executive Officer: Savage Jacob MDBUN/CRE RatioNOT REPORTEDNormal9-20[facility] Beachwood Medical CenterComment on above:Performed By: #### CDP, PFA, CP, GLYHGB #### [facility] [address] [place] [address] Executive Officer: ZANA Barahonataging:NOT REPORTEDNormalUniversity Hospitals Beachwood Medical CenterComment on above:Performed By: #### CDP, PFA, CP, GLYHGB #### [facility] [address] [place] [address] Executive Officer: CASEY Barahonastarla 91-08-4283Dzsatcuwppk distribution width (RBC) [Ratio]15.4 %High11.8-14.4[facility] Beachwood Medical CenterComment on above:Performed By: #### CDP, PFA, CP, GLYHGB #### [facility] [address] [place] [address] 22348 Executive Officer: Savage Jacob MDHematocrit (Bld) [Volume fraction]24.1 %Low 36.3-47.1Mer[facility] Hospital Of West CovinaComment on above:Performed By: #### CDP, PFA, CP, GLYHGB #### [address] [address] Executive Officer: Savage Jacob MDHemoglobin (Bld) [Mass/Vol]7.8 g/dLLow11.9-15.1 [facility] Medical CenterComment on above:Performed By: #### CDP, PFA, CP, GLYHGB #### [address] [address] Executive Officer: ALISSA BarahonaCH (RBC) [Entitic mass]29.3 xeUcnfsg05.2-33.5 [facility] Medical CenterComment on above:Performed By: #### CDP, PFA, CP, GLYHGB #### [address] [address] Executive Officer: JAIME BarahonaC (RBC) [Mass/Vol]32.4 g/yJGhrkwr89.4-34.8 [facility] Medical CenterComment on above:Performed By: #### CDP, PFA, CP, GLYHGB #### [address] [address] Executive Officer: ALISSA BarahonaCV (RBC) [Entitic vol]90.6 wXIicnnl35.6-102.9 [facility] Medical CenterComment on above:Performed By: #### CDP, PFA, CP, GLYHGB #### [address] [address] Executive Officer: Savage Jacob MDNRBC Automated0.9 per 100 WBCHigh0.0[facility] Beachwood Medical CenterComment on above:Performed By: #### CDP, PFA, CP, GLYHGB #### [address] [address] Executive Officer: HALEY Barahonalatelet mean volume (Bld) [Entitic vol]10.5 fL Normal8.1-13.5[facility] Beachwood Medical CenterComment on above:Performed By: #### CDP, PFA, CP, GLYHGB #### [facility] [place] [address] Executive Officer: Rico Barahona (Bld) [#/Vol]216 10*3/xDJsfznx560-758 [facility] Beach[facility] Medical CenterComment on above:Performed By: #### CDP, PFA, CP, GLYHGB #### [facility] [address] [place] [address]31 Executive Officer: ISABELLE BarahonaBC (Bld) [#/Vol]2.66 10*6/uLLow3.95-5.11[facility] Beach[facility] Medical CenterComment on above:Performed By: #### CDP, PFA, CP, GLYHGB #### [facility] [address] [place] [address] Executive Officer: EPHRAIM BarahonaBC (Bld) [#/Vol]19.2 10*3/uLHigh3.5-11.3MEmanate Health/Foothill Presbyterian HospitalComment on above:Performed By: #### CDP, PFA, CP, GLYHGB #### [facility] [address] [place] [address] 82868 Executive Officer: Savage Jacob MDErythrocyte distribution width (RBC) [Ratio]15.4 %High11.8 - 14.4 %[facility], KYHematocrit (Bld) [Volume fraction]24.1 % Low36.3 - 47.1 %[facility], KYHemoglobin (Bld) [Mass/Vol]7.8 g/dLLow11.9 - 15.1 g/dLUniversity Hospitals Geneva Medical Center, ORInterpretation and review of laboratory results AbnormalTuscarawas HospitalH (RBC) [Entitic mass]29.3 pg25.2 - 33.5 pgTuscarawas HospitalHC (RBC) [Mass/Vol]32.4 g/dL28.4 - 34.8 g/dLAlexander, [place] MCV (RBC) [Entitic vol]90.6 fL82.6 - 102.9 fLRegional Medical Center JERRYPlatelet mean volume (Bld) [Entitic vol]10.5 fL8.1 - 13.5 fLRegional Medical Center JERRYPlatelets (Bld) [#/Vol]216 10*3/uLUniversity Hospitals Geneva Medical Center, ORRBC (Bld) [#/Vol]2.66 10*6/uLLow3.95 - 5.11 m/[facility], ORWBC (Bld) [#/Vol]19.2 10*3/uLHighAlexander, KYWBC (Bld) [#/Vol]0.9 10*3/uLHigh0.0 per 100 WBCAlexander, [place] Cult,Bloodon [id number],BloodSpecimen Description .BLOOD Special Requests L HAND 6CC Culture NO GROWTH 6 DAYS Report Status FINAL 07/17/2019[facility] Hospital - ColumbusComment on above:Performed By: #### CDP, PFA, CP, GLYHGB #### [facility] [address] [place] [address] Executive Officer: Brian Barahona,BloodSpecimen Description .BLOOD Special Requests R HAND 3CC Culture NO GROWTH 6 DAYS Report Status FINAL 07/17/2019[facility] - ColumbusComment on above:Performed By: #### CDP, PFA, CP, GLYHGB #### [facility] [address] [place] [address] 43608 Executive Officer: Brian Barahona,Respiratoryon [id number],Respiratory Specimen Description .SUCTIONED SPUTUM Special Requests NOT REPORTED Direct Exam < 10 EPITHELIAL CELLS/LPF >25 NEUTROPHILS/LPF PREDOMINANT ORGANISM: GRAM NEGATIVE RODS MIXED BACTERIAL MORPHOTYPES ALSO PRESENT ON GRAM STAIN. Culture YEAST, NOT SILVIO ALBICANS OR SILVIO DUBLINIENSIS HEAVY GROWTH NORMAL RESPIRATORY ROSEANNA SCANT GOWTH Report Status FINAL 07/17/2019[facility] - ColumbusComment on above:Performed By: #### CDP, PFA, CP, GLYHGB #### [employer] [facility] [place], [place] [id number] Executive Officer: Savage Jacob, MDCulture, Blood 1on 43-43-9950Cnqivzf RequestsL HAND 6CCMercy Regency [facility] [place]- [place], KYSpecial RequestsR HAND 3CCMMemorial Health System- [place], [place] Culture, Respiratoryon [id number], NOT SILVIO ALBICANS OR SILVIO DUBLINIENSIS HEAVY GROWTHAbnormKing's Daughters Medical Center [place]- [place], KYCultureNORMAL RESPIRATORY ROSEANNA SCANT GOWTHMMemorial Health System- [place], KYDirect ExamNegativeAbnormKing's Daughters Medical Center [place]- [place], KYDirect Exam>25 NEUTROPHILS/LPFMMemorial Health System- [place], KYDirect ExamMIXED BACTERIAL MORPHOTYPES ALSO PRESENT ON GRAM STAIN.AbnormalSt. [facility]- [place], [place] Direct Exam< 10 EPITHELIAL CELLS/LPFMMemorial Health System- [place], KYInterpretation and review of laboratory resultsAbnoTriHealth Good Samaritan Hospital, KYSpecial RequestsNOT REPORTEDUniversity Hospitals [facility], KYSpecimen Description.SUCTIONED SPUTUMUniversity Hospitals Geneva Medical Center, KYMagnesiumon 94-93-5480Umwimndgk [Mass/Vol]2.1 mg/dLNormal1.6-2.6Mer[facility] Doctors Hospital Of West CovinaComment on above:Performed By: #### CDP, PFA, CP, GLYHGB #### [facility] [address] [place], [place] [phone] Executive Officer: Savage Jacob MDMagnesium [Mass/Vol]2.1 mg/dL1.6 - 2.6 mg/dL [facility], KYOtheron 34-21-5002KqrktzmRO GROWTH 6 DAYSUniversity Hospitals Geneva Medical [facility], KYSpecimen Description.BLOODUniversity Hospitals Geneva Medical Center, KYInterpretation and review of laboratory resultsAbnormKing's Daughters [facility] [place]- [place], KYPOC Glucose Fingerstickon 11-86-4688Nldcuekuxrmhsc and review of laboratory resultsAbnormKing's Daughters Medical Center [place]- [place], KYPOC Furqjkk142 mg/aKCzda93 - 105 mg/dLSt. [facility]- [place], KYInterpretation and review of laboratory resultsAbnormKing's Daughters Medical Center [place]- [place], KYPOC Mkzlnuu844 mg/dL High65 - 105 mg/dLUniversity Hospitals [facility], KYInterpretation and review of laboratory resultsAbnormLakeHealth [facility], KYPO Wpvzylh415 mg/jGKjmj56 - 105 mg/dLUniversity Hospitals [facility], KYInterpretation and review of laboratory resultsAbnormalUniversity Hospitals [facility], KYPOC Oexuaog154 mg/lNFgax73 - 105 mg/dLUniversity Hospitals Geneva Medical Center, KYPOCT Glucoseon 16-07-9839KDE Chxmymk505 mg/oKMdfm81 - 100 mg/dLUniversity Hospitals Geneva Medical Center, KYPT on 99-60-5283VVN Coag (PPP) [Relative time]1.1 {INR}NormalUniversity Hospitals Beachwood Medical CenterComment on above:Result Comment: Therapeutic Range: Moderate Anticoagulant Intensity: INR = 2.0-3.0 High Anticoagulant Intensity: INR = 2.5-3.5Performed By: #### CDP, PFA, CP, GLYHGB #### [facility] [address] [place], [place] [phone] Executive Officer: RIGO Barahona Coag (PPP) [Time]11.4 sNormal9.0-12.0[facility] Beachwood Medical CenterComment on above:Performed By: #### CDP, PFA, CP, GLYHGB #### [facility] [address] [place], [place] [phone] Executive Officer: Ric Barahonaime-INRon 48-28-6844XYD Coag (PPP) [Relative time]1.1 {INR}[facility], KYPT Coag (PPP) [Time]11.4 [facility], KYXR CHEST PORTABLEon 89-08-8632CM CHEST PORTABLEEXAMINATION: ONE XRAY VIEW OF THE [...] Signed by: Morro Wheeler MD 07/17/19 Final resultNoCommunity Memorial [facility], [facility], [facility], ORAPTAbrazo Arrowhead Campus [id number] Coag (Bld) [Time]57.8 s High20.5-30.5[facility] Beachwood Medical CenterComment on above:Performed By: #### CDP, PFA, CP, GLYHGB #### [facility] [address] [place] [address] Executive Officer: Shalom Barahona Coag (Bld) [Time]57.8 [facility], KYInterpretation and review of laboratory resultsAbnoTriHealth Good Samaritan Hospital, KYaPTT Coag (Bld) [Time]49.3 [facility]0.5-30.[address] [place] [address] Comment on above:Performed By: #### CDP, PFA, CP, GLYHGB #### [facility] [address] [place] [address] Executive Officer: Shalom Barahona Coag (Bld) [Time]49.3 [facility], KYInterpretation and review of laboratory resultsAbPomerene Hospital, KYaPTT Coag (Bld) [Time]46.7 [facility]0.5-30.[address] [place] [address] Comment on above:Performed By: #### CDP, PFA, CP, GLYHGB #### [facility] [address] [place] [address] Executive Officer: Shalom Barahona (Bld) [Time]46.7 [facility], ORInterpretation and review of laboratory resultsAbnormalSt. [facility]- [place], ORArterial Blood Gas, POCon 53-35-5996Qxsnn TestNOT APPLICABLEMerSeattle VA Medical Center- [place], XZYXP400.0[facility]- [place], KYModePRVCMerc Health- [place], KYNegative Base Excess, ArtNOT REPORTEDSt. [facility]- [place], KYO2 Device/Flow/%Adult VentilatorMerSeattle VA Medical Center- [place], [facility] ROM507.5 mmol/LHigh21 - 28 mmol/LMtrinity health [facility] Health- [place], ORPOC O2 SAT97 %94 - 98 %[facility]- [place], [facility] yVH269.3[facility]- [place], [facility] pCO2 TempNOT REPORTEDmm HgKettering Health [facility] Health- [place], [facility] pH7.509HighMer Health- [place], [facility] pH Temp NOT REPORTEDMer Health- [place], [facility]ITALC PO280.5LowKettering Health Behavioral [facility] Health- [place], [facility] pO2 Temp NOT REPORTEDmm HgKettering Health Behavioral Medical Center Health- [place], KYPositive Base Excess, Zva2SaflBserd Health- [place], KYPt TempNOT REPORTEDSt. [facility]- [place], ORSample SiteArterial LineSt. Mary'S [facility]- [place], KYTCO2 (calc), Art32 mmol/LHigh22 - 29 mmol/LMtrinity health system [facility] Health- [place], [place] BLOOD BANK SPECIMENon 01-96-7898Jhudl Bank SpecimenNOT REPORTEDSt. [facility]- [place], ORBasic Metabolic Panelon 30-16-1789Ffopr gap [Moles/Vol]14 mmol/L9 - 17 mmol/L [facility]- [place], KYBun/Cre RatioNOT REPORTEDMer Health- [place], KYCalcium [Mass/Vol]8.4 mg/dLLow8.6 - 10.4 mg/dLKettering Health Behavioral [facility] Health- [place], KYChloride [Moles/Vol]99 mmol/L98 - 107 mmol/LMhocking valley community hospitaly Health- [place], KYCO2 [Moles/Vol]26 mmol/L20 - 31 mmol/L [facility]- [place], KYCreatinine [Mass/Vol]1.26 mg/dLHigh0.5 - 0.9 mg/dLKettering Health Behavioral [facility] Health- [place], KYGFR Joceuuvi61 mL/minLow>60[facility], ORGFR Comment [facility], KYGFR Non- Ajioobdk90 mL/minLow>60[facility], [place] GFR StagingNOT REPORTEDUniversity Hospitals [facility], KYGlucose [Mass/Vol]259 mg/ySHhpw75 - 99 mg/dLUniversity Hospitals Geneva [facility], ORInterpretation and review of laboratory results AbnormalUniversity Hospitals Geneva Medical Center, KYPotassium [Moles/Vol]3.9 mmol/L3.7 - 5.3 mmol/LMOur Lady of Mercy [facility], KYSodium [Moles/Vol]139 mmol/L135 - 144 mmol/[facility], [place] Urea nitrogen [Mass/Vol]26 mg/dLHigh8 - 23 mg/dLUniversity Hospitals [facility], KYBasic Metabolic Profon 07-16-2019(cont.)NormalUniversity Hospitals Beachwood Medical CenterComment on above:Result Comment: Average GFR for 70 or more years old: 75 mL/min/1.73sq m Chronic Kidney Disease: <60 mL/min/1.73sq m Kidney failure: <15 mL/min/1.73sq m eGFR calculated using average adult body mass. Additional eGFR calculator available at: http://www.[employer].Emergent [facility]/multiple_crcl_2012.htmPerformed By: #### CDP, PFA, CP, GLYHGB #### [facility] [address] [place] [address] Executive Officer: Savage Jacob MDAnion gap [Moles/Vol]14 mmol/LNormal9-17[facility] Medical CenterComment on above:Performed By: #### CDP, PFA, CP, GLYHGB #### [facility] [address] [place] [address] Executive Officer: Savage Jacob MDCalcium [Mass/Vol]8.4 mg/dLLow8.6-10.4[facility] Medical CenterComment on above:Performed By: #### CDP, PFA, CP, GLYHGB #### [facility] [address] [place] [address] 00865 Executive Officer: CASEY Barahonahloride [Moles/Vol]99 mmol/VGierhe67-519BtmrtUniversity Hospitals Beachwood Medical CenterComment on above:Performed By: #### CDP, PFA, CP, GLYHGB #### [facility] [address] [place] [address] Executive Officer: Savage Jacob MDCO2 [Moles/Vol]26 mmol/YKzwcys57-14OzxyvUniversity Hospitals Beachwood Medical CenterComment on above:Performed By: #### CDP, PFA, CP, GLYHGB #### [address] [address] Executive Officer: CASEY Barahonareatinine [Mass/Vol]1.26 mg/dLHigh0.50-0.90 [facility] Medical CenterComment on above:Performed By: #### CDP, PFA, CP, GLYHGB #### [address] [address] Executive Officer: Savage Jacob MDGFR, Amer51 mL/minLow>60[facility] Medical CenterComment on above:Performed By: #### CDP, PFA, CP, GLYHGB #### [facility] [address] [place] [address] Executive Officer: Savage Jacob MDGFR,non Amer42 mL/minLow>60[facility] CenterComment on above:Performed By: #### CDP, PFA, CP, GLYHGB #### [facility] [address] [place] [address] Executive Officer: Savage Jacob MDGlucose [Mass/Vol]259 mg/fAUkqb88-06UhgdlEmanate Health/Foothill Presbyterian HospitalComment on above:Performed By: #### CDP, PFA, CP, GLYHGB #### [facility] [address] [place] [address] Executive Officer: Savage Jacob MDPotassium [Moles/Vol]3.9 mmol/LNormal3.7-5.3 [facility] CenterComment on above:Performed By: #### CDP, PFA, CP, GLYHGB #### [facility] [address] [place] [address] Executive Officer: ZANA Barahonaodium [Moles/Vol]139 mmol/FGcfmow012-356DutggUniversity Hospitals Beachwood Medical CenterComment on above:Performed By: #### CDP, PFA, CP, GLYHGB #### [facility] [address] [place] [address] Executive Officer: Savage Jacob MDUrea nitrogen [Mass/Vol]26 mg/dLHigh8-23[facility] Medical CenterComment on above:Performed By: #### CDP, PFA, CP, GLYHGB #### [facility] [address] [place] [address] Executive Officer: FELICITY Barahona/CRE CyrusOT REPORTEDNormal9-20[facility] Medical CenterComment on above:Performed By: #### CDP, PFA, CP, GLYHGB #### [facility] [address] [place] [address]99 Executive Officer: ZANA Barahonataging:NOT REPORTEDNormalUniversity Hospitals Beachwood Medical CenterComment on above:Performed By: #### CDP, PFA, CP, GLYHGB #### [facility] [address] [place] [address] Executive Officer: Savage Jacob MDBlood Bank Specimenon [id number] Bank SpecimenNOT REPORTEDNormalUniversity Hospitals Beachwood Medical CenterCBCon 07-16-2019 Erythrocyte distribution width (RBC) [Ratio]14.9 %High11.8-14.4[facility] Medical CenterComment on above:Performed By: #### CDP, PFA, CP, GLYHGB #### [facility] [address] [place] [address] [phone] Executive Officer: Savage Jacob MDHematocrit (Bld) [Volume fraction]22.7 %Low 36.3-47.1MEmanate Health/Foothill Presbyterian HospitalComment on above:Performed By: #### CDP, PFA, CP, GLYHGB #### [address] [id number] Executive Officer: Savage Jacob MDHemoglobin (Bld) [Mass/Vol]7.0 g/dLCritically low11.9-15.1MEmanate Health/Foothill Presbyterian HospitalComment on above:Performed By: #### CDP, PFA, CP, GLYHGB #### [place] [address] Executive Officer: ALISSA BarahonaCH (RBC) [Entitic mass]28.1 ilGsicbg91.2-33.5 [facility] CenterComment on above:Performed By: #### CDP, PFA, CP, GLYHGB #### [place] [address] Executive Officer: JAIME BarahonaC (RBC) [Mass/Vol]30.8 g/oEIhddof20.4-34.8 [facility] CenterComment on above:Performed By: #### CDP, PFA, CP, GLYHGB #### [place] [address] Executive Officer: ALISSA BarahonaCV (RBC) [Entitic vol]91.2 sCNzwdnu90.6-102.9 [facility] Medical CenterComment on above:Performed By: #### CDP, PFA, CP, GLYHGB #### [address] [address] Executive Officer: Savaeg Jacob MDNRBC Automated0.4 per 100 WBCHigh0.0[facility] Beachwood Medical CenterComment on above:Performed By: #### CDP, PFA, CP, GLYHGB #### [facility] [place] [address] Executive Officer: Daniel Barahona mean volume (Bld) [Entitic vol]10.1 fL Normal8.1-13.5[facility] Medical CenterComment on above:Performed By: #### CDP, PFA, CP, GLYHGB #### [facility] [address] [place] [address] Executive Officer: Taylor Barahonatejimbo (Bld) [#/Vol]218 10*3/zZQrvsgv283-890 [facility] CenterComment on above:Performed By: #### CDP, PFA, CP, GLYHGB #### [address] [address] Executive Officer: ISABELLE BarahonaBC (Bld) [#/Vol]2.49 10*6/uLLow3.95-5.11[facility] Medical CenterComment on above:Performed By: #### CDP, PFA, CP, GLYHGB #### [address] [address] Executive Officer: Savage Jacob MDWBC (Bld) [#/Vol]19.4 10*3/uLHigh3.5-11.3MEmanate Health/Foothill Presbyterian HospitalComment on above:Performed By: #### CDP, PFA, CP, GLYHGB #### [facility] [address] [place] [address] Executive Officer: Savage Jacob MDErythrocyte distribution width (RBC) [Ratio]14.9 %High11.8 - 14.4 %[facility], KYHematocrit (Bld) [Volume fraction]22.7 % Low36.3 - 47.1 %[facility], KYHemoglobin (Bld) [Mass/Vol]7.0 g/dL Critically low11.9 - 15.1 g/dLUniversity Hospitals Geneva Medical Center, KYInterpretation and review of laboratory resultsAbnoOhio Valley Surgical HospitalH (RBC) [Entitic mass]28.1 pg 25.2 - 33.5 pgTuscarawas HospitalHC (RBC) [Mass/Vol]30.8 g/dL28.4 - 34.8 g/dL Tuscarawas HospitalV (RBC) [Entitic vol]91.2 fL82.6 - 102.9 [place], KYPlatelet mean volume (Bld) [Entitic vol]10.1 fL8.1 - 13.5 fLAlexander, KYPlatelets (Bld) [#/Vol]218 10*3/uLUniversity Hospitals Geneva Medical Center, ORRBC (Bld) [#/Vol] 2.49 10*6/uLLow3.95 - 5.11 m/[place], KYWBC (Bld) [#/Vol]0.4 10*3/uL High0.0 per 100 WBCAlexander, KYWBC (Bld) [#/Vol]19.4 10*3/uLHighUniversity Hospitals [facility], ORInf Dis Interventionon 29-83-7175Jfmeoytjlwva:Expand Hillsboro Medical CenterComment on above:Performed By: #### CDP, PFA, CP, GLYHGB #### [facility] [place] [address] Executive Officer: Savage Jacob MDInfectious Disease Interventionon 07-16-2019 InterventionExpand Empiric CoverageAlexander, KYMRI BRAIN W WO CONTRASTon 17-36-1042JDW BRAIN W WO CONTRASTEXAMINATION: MRI OF THE [...] facet hypertrophic changes are noted. There is jool-sz-clactyvy right greater than left foraminal narrowing. C4-5: [...] by: Jaimee Avila MD 07/16/19 Final resultNormalMercy Doctors Hospital Of West CovinaMRI CERVICAL SPINE WO CONTRAST on 16-49-3732GTI CERVICAL SPINE WO CONTRASTEXAMINATION: MRI OF THE [...] facet hypertrophic changes are noted. There is cpyw-me-husanrie right greater than left foraminal narrowing. C4-5: [...] by: Jaimee Avila MD 07/16/19 Final resultNormalMercy Doctors Hospital Of West CovinaMagnesiumon 07-16-2019 Magnesium [Mass/Vol]2.0 mg/dLNormal1.6-2.6[facility] Comment on above:Performed By: #### CDP, PFA, CP, GLYHGB #### [facility] [address] [place], [place] [id number] Executive Officer: Miles Barahonagnesium [Mass/Vol]2.0 mg/dL1.6 - 2.6 mg/dL [facility], KYOtheron [id number] Hospitals [facility], KYUniversity [facility], [place] [facility], KYInterpretation and review of laboratory resultsAbnoTriHealth Good Samaritan Hospital, KYPO Glucose Fingerstickon 94-87-8596Dlgpqmfzzwbgcp and review of laboratory resultsAbnoTriHealth Good Samaritan [facility], KYPOC Zmazxyr100 mg/lIQbcw51 - 105 mg/dLUniversity Hospitals [facility], KYInterpretation and review of laboratory resultsAbMercer County Community Hospital, KYPOC Gfpctmp512 mg/pFGebm38 - 105 mg/dLUniversity [facility]als [facility], [place] Interpretation and review of laboratory resultsAbnoTriHealth Good Samaritan Hospital, KYPOC Taaccjx973 mg/nWYyxv12 - 105 mg/dLUniversity [facility]als [facility], KYInterpretation and review of laboratory resultsAbnoTriHealth Good Samaritan Hospital, KYPOC Yvedbno323 mg/qQSvll93 - 105 mg/dLUniversity Hospitals [facility], KYPOCT Glucoseon 52-19-2060BMN Qgjggya646 mg/wYOawi87 - 100 mg/dLUniversity Hospitals [facility], KYPTon 85-23-6073GHQ Coag (PPP) [Relative time]1.1 {INR}NormalUniversity Hospitals Beachwood Medical CenterComment on above:Result Comment: Therapeutic Range: Moderate Anticoagulant Intensity: INR = 2.0-3.0 High Anticoagulant Intensity: INR = 2.5-3.5Performed By: #### CDP, PFA, CP, GLYHGB #### [facility] [address] [place] [address] Executive Officer: RIGO Barahona Coag (PPP) [Time]11.9 sNormal9.0-12.0[facility] Beachwood Medical CenterComment on above:Performed By: #### CDP, PFA, CP, GLYHGB #### [facility] [address] [place] [address] Executive Officer: HALEY Barahonahosphoruson 95-18-6330Lnpnrljmf [Mass/Vol]3.0 mg/dL2.6 - 4.5 mg/dLUniversity Hospitals [facility], KYPhosphorus, Inorg.on 07-16-2019 Phosphorus, Inorg.3.0 mg/dLNormal2.6-4.5[facility] CenterComment on above:Performed By: #### CDP, PFA, CP, GLYHGB #### [facility] [address] [place], [place] [phone] Executive Officer: HALEY Barahonarotime-INRon 38-19-9264UNG Coag (PPP) [Relative time]1.1 {INR}[facility], KYPT Coag (PPP) [Time]11.9 [facility], KYType + Screenon 62-75-7512Zblt + ScreenSample Expiration 07/19/2019,2359 Arm Band Number BE [id number] ABO/Rh(D) A POSITIVE Antibody Screen POSITIVE Antibody Ident Anti-E Present Anti-c Present NASREEN, Anti-IgG Viky Serum NEGATIVE Antigen Type,Patient Negative for E Antigen Negative for Cortes(B) Antigen Negative for c Antigen Unit Number [id number] Blood Component Type Leukocyte Reduced Red Cell Unit Division 00 Status of Unit REL FROM ALLOC Transfusion Status DO NOT ISSUE FOR TRANSFUSION Crossmatch Result INCOMPATIBLE Unit Number [id number] Blood Component Type Leukocyte Reduced Red Cell Unit Division 00 Status of Unit REL FROM ALLOC Transfusion Status DO NOT ISSUE FOR TRANSFUSION Crossmatch Result INCOMPATIBLE Unit Number [id number] Blood Component Type Leukocyte Reduced Red Cell Unit Division 00 Status of Unit TRANSFUSED Transfusion Status OK TO TRANSFUSE Crossmatch Result COMPATIBLE Unit Number [id number] Blood Component Type Leukocyte Reduced Red Cell Unit Division 00 Status of Unit REL FROM ALLOC Transfusion Status OK TO TRANSFUSE Crossmatch Result COMPATIBLE Unit Number [id number] Blood Component Type Leukocyte Reduced Red Cell Unit Division 00 Status of Unit REL FROM ALLOC Transfusion Status OK TO TRANSFUSE Crossmatch Result COMPATIBLENormalUniversity Hospitals Beachwood Medical CenterComment on above:Performed By: #### CDP, PFA, CP, GLYHGB #### [facility] [place] [phone] Executive Officer: WHITNEY Barahona CHEST PORTABLEon 46-15-4690LY CHEST PORTABLE EXAMINATION: ONE XRAY VIEW OF [...] Signed by: Cyril Warner MD 07/16/19 Final resultNormalUniversity Hospitals Beachwood Medical CenterXR CHEST PORTABLEEXAMINATION: ONE XRAY VIEW [...] Signed by: Caro Hutchinson MD 07/16/19 Final resultNoCommunity [facility] Hospital, [facility], [facility], [facility], [facility], [facility], KYAMMONIAon 53-14-9074Jhjuvav (P) [Mass/Vol]41 umol/L11 - 51 umol/L [facility], KYAPTAbrazo [facility] 14-23-7200fEMS Coag (Bld) [Time]49.1 [facility]20.5-30.5 [facility] CenterComment on above:Performed By: #### CDP, PFA, CP, GLYHGB #### [facility] [employer] [address] [place] [address] [phone] Executive Officer: Savage Jacob MDaPTT Coag (Bld) [Time]sCritically high20.5-30.5 [facility] CenterComment on above:Performed By: #### CDP, PFA, CP, GLYHGB #### [facility] [address] [place] [phone] Executive Officer: Savage Jacob MDaPTT Coag (Bld) [Time]49.1 [facility], KYInterpretation and review of laboratory resultsAbPomerene Hospital, KYaPTT Coag (Bld) [Time]sCritically [facility], KYInterpretation and review of laboratory resultsAbPomerene Hospital, KYaPTT Coag (Bld) [Time] 52.6 sHigh20.5-30.5[facility] CenterComment on above:Performed By: #### CDP, PFA, CP, GLYHGB #### [facility] [address] [place] [address] [phone] Executive Officer: Savage Jacob MDaPTT Coag (Bld) [Time]52.6 [facility], KYInterpretation and review of laboratory resultsAbnormMount St. Mary Hospital [place], KYAmmoniaon 79-32-9545Iqteerb (P) [Mass/Vol]41 umol/UDwynrh18-93OsimhUniversity Hospitals Beachwood Medical CenterComment on above:Performed By: #### CDP, PFA, CP, GLYHGB #### [facility] [address] [place] [address] Executive Officer: Fabiana Barahonaeriaada Blood Gas, POCon 54-02-5923Mfmdd Test NOT APPLICABLEUniversity [facility]als [facility], MUVBH451.0[facility], ORInterpretation and review of laboratory resultsAbnormLakeHealth Tri[facility], ORModePRVCMOur Lady of [facility] - [place], KYNegative Base Excess, ArtNOT REPORTEDUniversity [facility]als [facility], ORO2 Device/Flow/% Adult VentilatorUniversity Hospitals [facility], [facility] GWT901.4 mmol/LHigh21 - 28 mmol/[facility] [place], [facility] O2 SAT96 %94 - 98 %[facility], [facility] lYV339.2MOur Lady of [facility] [place], [facility] pCO2 TempNOT REPORTEDmm HgUniversity Hospitals [facility], [facility] pH7.491High [facility], [facility] pH TempNOT REPORTEDUniversity [facility]als [facility], [facility] PO272.4Low [facility], [facility] pO2 TempNOT REPORTEDmm HgUniversity Hospitals [facility], ORPositive Base Excess, Sox7LqruCuogsUniversity [facility]als [facility], KYPt TempNOT [facility], [place] Sample SiteArterial LineUniversity Hospitals [facility], KYTCO2 (calc), Art33 mmol/LHigh22 - 29 mmol/[facility]- [place], ORBASIC METABOLIC PANELon 13-92-5605Wvhqt gap [Moles/Vol]11 mmol/L9 - 17 mmol/LMMemorial Health System- [place], KYBun/Cre RatioNOT REPORTED [facility], ORCalcium [Mass/Vol]7.9 mg/dLLow8.6 - 10.4 mg/dLSt. [facility]- [place], KYChloride [Moles/Vol]99 mmol/L98 - 107 mmol/LMercy Health- [place], KYCO2 [Moles/Vol]27 mmol/L20 - 31 mmol/LMercy Health- [place], KYCreatinine [Mass/Vol]1.22 mg/dLHigh0.5 - 0.9 mg/dLMercy Health- [place], KYGFR Irxtbsqp61 mL/minLow>60 [facility] [place], KYGFR CommentMercy Health- [place], KYGFR Non- Rnbjezyb66 mL/minLow>60[facility]- [place], KYGFR StagingNOT REPORTEDMer Health- [place], [place] Glucose [Mass/Vol]307 mg/mIMywe57 - 99 mg/dLMercy Health- [place], KYInterpretation and review of laboratory resultsAbnormalMercy Health- [place], KYPotassium [Moles/Vol]3.5 mmol/LLow3.7 - 5.3 mmol/LMercy Health- [place], KYSodium [Moles/Vol] 137 mmol/L135 - 144 mmol/LMercy Health- [place], KYUrea nitrogen [Mass/Vol]23 mg/dL8 - 23 mg/dLMercy Health- [place], KYBasic Metabolic Panelon 96-89-9239Mvedf gap [Moles/Vol]13 mmol/L9 - 17 mmol/LMercy Health- [place], KYBun/Cre RatioNOT REPORTED [facility]- [place], KYCalcium [Mass/Vol]8.5 mg/dLLow8.6 - 10.4 mg/dLMercy Health- [place], KYChloride [Moles/Vol]98 mmol/L98 - 107 mmol/LMercy Health- [place], KYCO2 [Moles/Vol]28 mmol/L20 - 31 mmol/LMercy Health- [place], KYCreatinine [Mass/Vol]1.17 mg/dLHigh0.5 - 0.9 mg/dLMercy Health- [place], KYGFR Oxvnedke80 mL/minLow>60 [facility]- [place], KYGFR CommentMercy Health- [place], KYGFR Non- Zkwndcdu41 mL/minLow>60[facility]- [place], KYGFR StagingNOT REPORTEDMer Health- [place], [place] Glucose [Mass/Vol]294 mg/iRQhxy16 - 99 mg/dLMercy Health- [place], KYInterpretation and review of laboratory resultsAbnormalMercy Health- [place], KYPotassium [Moles/Vol]3.5 mmol/LLow3.7 - 5.3 mmol/LMOur Lady of [facility] [place], KYSodium [Moles/Vol] 139 mmol/L135 - 144 mmol/LMOur Lady of [facility]cy [facility] [place], KYUrea nitrogen [Mass/Vol]23 mg/dL8 - 23 mg/dLUniversity [facility]als [facility], KYBasic Metabolic Profon 07-15-2019(cont.)Normal [facility] CenterComment on above:Result Comment: Average GFR for 70 or more years old: 75 mL/min/1.73sq m Chronic Kidney Disease: <60 mL/min/1.73sq m Kidney failure: <15 mL/min/1.73sq m eGFR calculated using average adult body mass. Additional eGFR calculator available at: http://www.[employer]/multiple_crcl_2012.htmPerformed By: #### CDP, PFA, CP, GLYHGB #### [facility] [address] [place] [place] [address] Executive Officer: Savage Jacob MDAnion gap [Moles/Vol]11 mmol/LNormal9-17[facility] CenterComment on above:Performed By: #### CDP, PFA, CP, GLYHGB #### [facility] [address] [place] [address] Executive Officer: CASEY Barahonaalcium [Mass/Vol]7.9 mg/dLLow8.6-10.4[facility] CenterComment on above:Performed By: #### CDP, PFA, CP, GLYHGB #### [facility] [address] [place] [address] Executive Officer: CASEY Barahonahloride [Moles/Vol]99 mmol/JGckqmi28-846OoskjUniversity Hospitals Beachwood Medical CenterComment on above:Performed By: #### CDP, PFA, CP, GLYHGB #### [facility] [address] [place] [address] Executive Officer: Savage Madoff, MDCO2 [Moles/Vol]27 mmol/GCpyqhe08-08IhkvdUniversity Hospitals Beachwood Medical CenterComment on above:Performed By: #### CDP, PFA, CP, GLYHGB #### [address] [address] Executive Officer: CASEY Barahonareatinine [Mass/Vol]1.22 mg/dLHigh0.50-0.90 [facility] CenterComment on above:Performed By: #### CDP, PFA, CP, GLYHGB #### [place] [address] Executive Officer: Savage Jacob MDGFR, Amer53 mL/minLow>60[facility] CenterComment on above:Performed By: #### CDP, PFA, CP, GLYHGB #### [place] [address] Executive Officer: SALLY Barahona,non Amer44 mL/minLow>60[facility] CenterComment on above:Performed By: #### CDP, PFA, CP, GLYHGB #### [facility] [employer] [address] [place] [address] Executive Officer: Savage Jacob MDGlucose [Mass/Vol]307 mg/dNSrmh41-41WxtotEmanate Health/Foothill Presbyterian HospitalComment on above:Performed By: #### CDP, PFA, CP, GLYHGB #### [facility] [employer] [address] [place] [address] Executive Officer: Savage Jacob MDPotassium [Moles/Vol]3.5 mmol/LLow3.7-5.3MEmanate Health/Foothill Presbyterian HospitalComment on above:Performed By: #### CDP, PFA, CP, GLYHGB #### [facility] [employer] [address] [place] [address] Executive Officer: Savage Jacob MDSodium [Moles/Vol]137 mmol/FKkczhb599-857IaaykUniversity Hospitals Beachwood Medical CenterComment on above:Performed By: #### CDP, PFA, CP, GLYHGB #### [facility] [address] [place] [address] Executive Officer: Savage Jacob MDUrea nitrogen [Mass/Vol]23 mg/dLNormal8-23[facility] CenterComment on above:Performed By: #### CDP, PFA, CP, GLYHGB #### [facility] [address] [place] [address] Executive Officer: FELICITY Barahona/CRE CyrusOT REPORTEDNormal9-20[facility] CenterComment on above:Performed By: #### CDP, PFA, CP, GLYHGB #### [facility] [address] [place] [address] Executive Officer: ZANA Barahonataging:NOT REPORTEDrmalUniversity Hospitals Beachwood Medical CenterComment on above:Performed By: #### CDP, PFA, CP, GLYHGB #### [facility] [address] [place] [address] Executive Officer: Savage Jacob MD(cont.)[facility] Comment on above:Result Comment: Average GFR for 70 or more years old: 75 mL/min/1.73sq m Chronic Kidney Disease: <60 mL/min/1.73sq m Kidney failure: <15 mL/min/1.73sq m eGFR calculated using average adult body mass. Additional eGFR calculator available at: http://www.[employer].com/multiple_crcl_2012.htmPerformed By: #### CDP, PFA, CP, GLYHGB #### [facility] [address] [place] [address] Executive Officer: Chayito Barahona gap [Moles/Vol]13 mmol/LNormal9-17[facility] CenterComment on above:Performed By: #### CDP, PFA, CP, GLYHGB #### [facility] [address] [place] [address] Executive Officer: Savage Jacob MDCalcium [Mass/Vol]8.5 mg/dLLow8.6-10.4[facility] CenterComment on above:Performed By: #### CDP, PFA, CP, GLYHGB #### [facility] [address] [place] [address] Executive Officer: Savage Jacob MDChloride [Moles/Vol]98 mmol/ZGierwg83-610GjvurUniversity Hospitals Beachwood Medical CenterComment on above:Performed By: #### CDP, PFA, CP, GLYHGB #### [facility] [employer] [address] [place] [address] Executive Officer: Savage Jacob MDCO2 [Moles/Vol]28 mmol/TSffrsx62-95FztfbUniversity Hospitals Beachwood Medical CenterComment on above:Performed By: #### CDP, PFA, CP, GLYHGB #### [address] [address] Executive Officer: Savage Jacob MDCreatinine [Mass/Vol]1.17 mg/dLHigh0.50-0.90 [facility] CenterComment on above:Performed By: #### CDP, PFA, CP, GLYHGB #### [facility] [address] [place] [address] Executive Officer: SALLY Barahona, Amer55 mL/minLow>60[facility] CenterComment on above:Performed By: #### CDP, PFA, CP, GLYHGB #### [facility] [address] [place] [address] Executive Officer: SALLY Barahona,non Amer46 mL/minLow>60[facility] CenterComment on above:Performed By: #### CDP, PFA, CP, GLYHGB #### [facility] [place] [address] Executive Officer: Savage Jacob MDGlucose [Mass/Vol]294 mg/jWSokg93-21ZxkipEmanate Health/Foothill Presbyterian HospitalComment on above:Performed By: #### CDP, PFA, CP, GLYHGB #### [facility] [address] [place] [address] Executive Officer: HALEY Barahonaotassium [Moles/Vol]3.5 mmol/LLow3.7-5.3MEmanate Health/Foothill Presbyterian HospitalComment on above:Performed By: #### CDP, PFA, CP, GLYHGB #### [facility] [address] [place] [address] Executive Officer: ZANA Barahonaodium [Moles/Vol]139 mmol/TTeznep332-176RqkniUniversity Hospitals Beachwood Medical CenterComment on above:Performed By: #### CDP, PFA, CP, GLYHGB #### [facility] [address] [place] [address] Executive Officer: Savage Jacob MDUrea nitrogen [Mass/Vol]23 mg/dLNormal8-23[facility] CenterComment on above:Performed By: #### CDP, PFA, CP, GLYHGB #### [facility] [address] [place] [address] Executive Officer: FELICITY Barahona/CRE RatioNOT REPORTEDNormal9-20[facility] CenterComment on above:Performed By: #### CDP, PFA, CP, GLYHGB #### [facility] [address] [place] [address] Executive Officer: ZANA Barahonataging:NOT REPORTEDNormalUniversity Hospitals Beachwood Medical CenterComment on above:Performed By: #### CDP, PFA, CP, GLYHGB #### [facility] [address] [place] [address] Executive Officer: Ulysses Barahona 70-98-5172Icwnbxanhjj distribution width (RBC) [Ratio]15.0 %High11.8-14.4[facility] CenterComment on above:Performed By: #### CDP, PFA, CP, GLYHGB #### [address] [address] Executive Officer: Savage Jacob MDHematocrit (Bld) [Volume fraction]23.8 %Low 36.3-47.1MEmanate Health/Foothill Presbyterian HospitalComment on above:Performed By: #### CDP, PFA, CP, GLYHGB #### [place] [address] Executive Officer: Savage Jacob MDHemoglobin (Bld) [Mass/Vol]7.3 g/dLLow11.9-15.1 [facility] CenterComment on above:Performed By: #### CDP, PFA, CP, GLYHGB #### [facility] [employer] [address] [place] [address] Executive Officer: ALISSA BarahonaCH (RBC) [Entitic mass]29.0 efLfrqzz82.2-33.5 [facility] CenterComment on above:Performed By: #### CDP, PFA, CP, GLYHGB #### [address] [address] Executive Officer: ALISSA BarahonaCHC (RBC) [Mass/Vol]30.7 g/fOAthfyi97.4-34.8 [facility] CenterComment on above:Performed By: #### CDP, PFA, CP, GLYHGB #### [facility] [employer] [address] [place] [address] Executive Officer: ALISSA BarahonaCV (RBC) [Entitic vol]94.4 bOJgabpp35.6-102.9 [facility] CenterComment on above:Performed By: #### CDP, PFA, CP, GLYHGB #### [address] [address] Executive Officer: Savage Jacob MDNRBC Automated0.2 per 100 WBCHigh0.0[facility] CenterComment on above:Performed By: #### CDP, PFA, CP, GLYHGB #### [address] [address] Executive Officer: Daniel Barahona mean volume (Bld) [Entitic vol]10.6 fL Normal8.1-13.5[facility] CenterComment on above:Performed By: #### CDP, PFA, CP, GLYHGB #### [address] [address] Executive Officer: Taylor Barahonatejimbo (Bld) [#/Vol]233 10*3/dTEhtuft893-348 [facility] CenterComment on above:Performed By: #### CDP, PFA, CP, GLYHGB #### [address] [address] Executive Officer: ISABELLE BarahonaBC (Bld) [#/Vol]2.52 10*6/uLLow3.95-5.11[facility] CenterComment on above:Performed By: #### CDP, PFA, CP, GLYHGB #### [address] [address] Executive Officer: Savage Jacob MDWBC (Bld) [#/Vol]22.0 10*3/uLHigh3.5-11.3MEmanate Health/Foothill Presbyterian HospitalComment on above:Performed By: #### CDP, PFA, CP, GLYHGB #### [facility] [employer] [address] [place] [address] Executive Officer: Savage Jacob MDErythrocyte distribution width (RBC) [Ratio]15.0 %High11.8 - 14.4 %[place], KYHematocrit (Bld) [Volume fraction]23.8 % Low36.3 - 47.1 %[place], KYHemoglobin (Bld) [Mass/Vol]7.3 g/dLLow11.9 - 15.1 g/dLAlexander, KYInterpretation and review of laboratory results AbnormalUniversity [facility]als [facility], ORMCH (RBC) [Entitic mass]29.0 pg25.2 - 33.5 pgUniversity Hospitals [facility], ORMCHC (RBC) [Mass/Vol]30.7 g/dL28.4 - 34.8 g/dLAlexander, [place] MCV (RBC) [Entitic vol]94.4 fL82.6 - 102.9 fLAlexander, KYPlatelet mean volume (Bld) [Entitic vol]10.6 fL8.1 - 13.5 fLUniversity Hospitals Geneva Medical Center, ORPlatelets (Bld) [#/Vol]233 10*3/uLUniversity Hospitals [facility], ORRBC (Bld) [#/Vol]2.52 10*6/uLLow3.95 - 5.11 m/[facility], ORWBC (Bld) [#/Vol]22.0 10*3/uLHighUniversity Hospitals [facility], ORWBC (Bld) [#/Vol]0.2 10*3/uLHigh0.0 per 100 WBCAlexander, [place] Erythrocyte distribution width (RBC) [Ratio]15.1 %High11.8-14.4[facility] CenterComment on above:Performed By: #### CDP, PFA, CP, GLYHGB #### [facility] [address] [place] [address] Executive Officer: Savage Jacob MDHematocrit (Bld) [Volume fraction]23.1 %Low 36.3-47.1MEmanate Health/Foothill Presbyterian HospitalComment on above:Performed By: #### CDP, PFA, CP, GLYHGB #### [address] [address] Executive Officer: Savage Jacob MDHemoglobin (Bld) [Mass/Vol]7.2 g/dLLow11.9-15.1 [facility] CenterComment on above:Performed By: #### CDP, PFA, CP, GLYHGB #### [address] [address] Executive Officer: ALISSA BarahonaCH (RBC) [Entitic mass]28.5 xdUxtybm84.2-33.5 [facility] CenterComment on above:Performed By: #### CDP, PFA, CP, GLYHGB #### [address] [address] Executive Officer: JAIME BarahonaC (RBC) [Mass/Vol]31.2 g/eZIshufi07.4-34.8 [facility] CenterComment on above:Performed By: #### CDP, PFA, CP, GLYHGB #### [address] [address] Executive Officer: ALISSA BarahnoaCV (RBC) [Entitic vol]91.3 xWIgsvvb13.6-102.9 [facility] CenterComment on above:Performed By: #### CDP, PFA, CP, GLYHGB #### [address] [address] Executive Officer: Savage Jacob MDNRBC Automated0.3 per 100 WBCHigh0.0[facility] CenterComment on above:Performed By: #### CDP, PFA, CP, GLYHGB #### [address] [address] Executive Officer: HALEY Barahonalatelet mean volume (Bld) [Entitic vol]9.9 fL Normal8.1-13.5[facility] CenterComment on above:Performed By: #### CDP, PFA, CP, GLYHGB #### [facility] [address] [place] [address] Executive Officer: Rico Barahona (Bld) [#/Vol]224 10*3/nOPtwjgy260-989 [facility] CenterComment on above:Performed By: #### CDP, PFA, CP, GLYHGB #### [facility] [address] [place] [address] Executive Officer: ISABELLE BarahonaBC (Bld) [#/Vol]2.53 10*6/uLLow3.95-5.11[facility] CenterComment on above:Performed By: #### CDP, PFA, CP, GLYHGB #### [facility] [employer] [address] [place] [address] Executive Officer: Savage Jacob MDWBC (Bld) [#/Vol]22.4 10*3/uLHigh3.5-11.3MEmanate Health/Foothill Presbyterian HospitalComment on above:Performed By: #### CDP, PFA, CP, GLYHGB #### [facility] [employer] [address] [place] [address] Executive Officer: Savage Jacob MDErythrocyte distribution width (RBC) [Ratio]15.1 %High11.8 - 14.4 %[facility], KYHematocrit (Bld) [Volume fraction]23.1 % Low36.3 - 47.1 %[facility], KYHemoglobin (Bld) [Mass/Vol]7.2 g/dLLow11.9 - 15.1 g/dLUniversity Hospitals Geneva Medical Center, ORInterpretation and review of laboratory results AbnormalUniversity Hospitals [facility], [facility] (RBC) [Entitic mass]28.5 pg25.2 - 33.5 pgUniversity Hospitals [facility], [facility] – STROUDHC (RBC) [Mass/Vol]31.2 g/dL28.4 - 34.8 g/dLUniversity Hospitals [facility], [place] MCV (RBC) [Entitic vol]91.3 fL82.6 - 102.9 fLUniversity Hospitals Geneva Medical Center, KYPlatelet mean volume (Bld) [Entitic vol]9.9 fL8.1 - 13.5 fLUniversity Hospitals Geneva Medical Center, KYPlatelets (Bld) [#/Vol]224 10*3/uLUniversity Hospitals [facility], KYRBC (Bld) [#/Vol]2.53 10*6/uLLow3.95 - 5.11 m/uLUniversity Hospitals [facility], KYWBC (Bld) [#/Vol]22.4 10*3/uLHighUniversity Hospitals [facility], KYWBC (Bld) [#/Vol]0.3 10*3/uLHigh0.0 per 100 WBCUniversity Hospitals Geneva Medical Center, ORCORTISOLon 30-30-1797Osapgzhv42.9 ug/dLHigh2.7 - 18.4 ug/dLUniversity Hospitals [facility], JERRYCortisol Collection InfoNOT REPORTEDUniversity [facility]als [facility], KYInterpretation and review of laboratory resultsAbnormLakeHealth TriPoint Medical Center, ORCortisolon 51-17-4689Wruzrlyl14.9 ug/dLHigh2.7-18.4[facility] Beachwood Medical CenterComment on above:Result Comment: Cortisol Reference Range: AM 6.0-18.4 PM 2.7-10.5Performed By: #### CDP, PFA, CP, GLYHGB #### [employer] [address] [place] [address] Executive Officer: CASEY Barahonaollection Info.NOT REPORTEDNoMercy Health West HospitalComment on above:Performed By: #### CDP, PFA, CP, GLYHGB #### [facility] [address] [place] [address] Executive Officer: JONG Barahona 12 Leadon 23-25-9508Qltzsj Rfjj15NRJQhkasOur Lady of [facility], KYP Rktx07hfwtrcuHeslm Health- [place], KYP-R Yuiwxbzq976 [facility], KYQ-T Fjwhnlbo323 msMercy Health- [place], KYQRS Eoshufwp43 msMercy Health- [place], KYQTc Calculation (Bazett)582 msMercy Health- [place], KYR Lwdg61iolvlgxWbtio Health- [place], KYT Aekh339mhemirfPimep Health- [place], KYVentricular Syqq35DYNKzupr Health- [place], KYMercy Health- [place], KYMercy Health- [place], KYAtrial Vvpm613OPAOfnuz Health- [place], KYQ-T Djjeqati646 msMercy Health- [place], KYQRS Obgalvvc00 msMercy Health- [place], [place] QTc Calculation (Bazett)447 msMercy Health- [place], KYR Tsom01vtszfolAkbqt Health- [place], KYT [place]-129degreesMercy Health- [place], KYVentricular Fgvm808DOTAdldf Health- [place], KYMercy Health- [place], KYMercy Health- [place], KYMagnesiumon 27-41-5211Whokqrpbr [Mass/Vol]2.0 mg/dLNormal1.6-2.6Mer[facility] Doctors Hospital Of West CovinaComment on above:Performed By: #### CDP, PFA, CP, GLYHGB #### [facility] [address] [place] [address] Executive Officer: Savage Jacob, MDMagnesium [Mass/Vol]2.0 mg/dL1.6 - 2.6 mg/dL [facility], ORPO Glucose Fingerstickon 84-99-1441Vvusehuflueupp and review of laboratory resultsAbnoMcKitrick Hospital [place], KYPOC Wvlcxat405 mg/dLHigh 65 - 105 mg/dLUniversity [facility]als [facility], KYInterpretation and review of laboratory resultsAbnormMount St. Mary Hospital [place], KYPOC Koauhwi120 mg/kSJfxh08 - 105 mg/dLUniversity Hospitals [facility], KYInterpretation and review of laboratory resultsAbnormUNC Hospitals Hills[facility]- [place], KYPOC Qmzikru438 mg/pVYykg62 - 105 mg/dLUniversity [facility]als [facility], [place] Interpretation and review of laboratory resultsAbnormUNC Hospitals Hillsborough Campus Health- [place], ORPOC Qhjcoka814 mg/wAGrvx01 - 105 mg/dLKettering Health Behavioral [facility] Center Health [place], KYPTon 94-55-5394QOB Coag (PPP) [Relative time]1.1 {INR}NormalUniversity Hospitals Beachwood Medical CenterComment on above:Result Comment: Therapeutic Range: Moderate Anticoagulant Intensity: INR = 2.0-3.0 High Anticoagulant Intensity: INR = 2.5-3.5Performed By: #### CDP, PFA, CP, GLYHGB #### [facility] [address] [place] [address] Executive Officer: RIGO Barahona Coag (PPP) [Time]11.6 sNormal9.0-12.0[facility] Beachwood Medical CenterComment on above:Performed By: #### CDP, PFA, CP, GLYHGB #### [facility] [address] [place] [address] Executive Officer: Ric Barahonaime-INRon 52-82-6363WUF Coag (PPP) [Relative time]1.1 {INR}[facility], ORPT Coag (PPP) [Time]11.6 [facility], ORT3, FREEon 30-97-7298Hvzn T3 [Mass/Vol]1.27 pg/mLLow2.02 - 4.43 pg/mLUniversity [facility], ORInterpretation and review of laboratory resultsAbnormalUniversity Hospitals Geneva Medical Center, ORT3, Freeon 33-73-8280Ghyj T3 [Mass/Vol]1.27 pg/mLLow2.02-4.43[facility]wood Medical CenterComment on above:Performed By: #### CDP, PFA, CP, GLYHGB #### [facility] [address] [place] [address] [phone] Executive Officer: PRATIK Barahona4, FREEon 91-39-4385Yegvbtngy, Free1.02 ng/dL 0.93 - 1.7 ng/dLAlexander, KYTS without Reflexon 30-17-0950MXF Qn4.27 m[IU]/LMDecatur, KYThyroid Stim. Horm.on 70-92-3365HSW Qn4.27 m[IU]/L Normal0.30-5.00[facility] Beachwood Medical CenterComment on above:Performed By: #### CDP, PFA, CP, GLYHGB #### [facility] [address] [place] [address] Executive Officer: Savage Jacob MDThyroxine Freeon 58-93-9715Ommwmiahp, Free1.02 ng/dLNormal0.93-1.70[facility] Medical CenterComment on above:Performed By: #### CDP, PFA, CP, GLYHGB #### [facility] [address] [place] [address] Executive Officer: Shahram Barahona 74-89-7600zQHU Coag (Bld) [Time]55.5 s High20.5-30.5[facility] Beachwood Medical CenterComment on above:Performed By: #### CDP, PFA, CP, GLYHGB #### [facility] [address] [place] [address] Executive Officer: Shalom Barahona Coag (Bld) [Time]55.5 [facility], KYInterpretation and review of laboratory resultsAbnoTriHealth Good Samaritan Hospital, KYaPTT Coag (Bld) [Time]50.9 sHigh20.5-30.5[facility] Comment on above:Performed By: #### CDP, PFA, CP, GLYHGB #### [facility] [address] [place] [address] Executive Officer: Shalom Barahona Coag (Bld) [Time]50.9 [facility], KYInterpretation and review of laboratory resultsAbnoTriHealth Good Samaritan Hospital, KYaPTT Coag (Bld) [Time]59.0 sHigh20.5-30.5[facility] Comment on above:Performed By: #### CDP, PFA, CP, GLYHGB #### [facility] [address] [place] [address] Executive Officer: Shalom Barahona Coag (raquel) [Time]59.0 sHigMercer County Community Hospital [facility]- [place], ORInterpretation and review of laboratory resultsAbnormUNC Hospitals Hillsborough [facility]- [place], ORArterial Blood Gas, POCon 56-72-3151Htbir TestNOT APPLICABLEKettering Health [facility]- [place], QLGZU860.0Mer [facility]- [place], KYModePRVercy Health- [place], KYNegative Base Excess, ArtNOT REPORTEDMer Health- [place], KYO2 Device/Flow/%Adult VentilatorMer Health- [place], KYPOC TCL227.3 mmol/LHigh21 - 28 mmol/LMercy Health- [place], ORPOC O2 SAT94 %94 - 98 %[facility]- [place], ORPOC wTT314.2[facility]- [place], ORPO pCO2 TempNOT REPORTEDmm HgMer Health- [place], ORPOC pH7.472HighMer Health- [place], ORPOC pH Temp NOT REPORTEDMer Health- [place], ORPOC PO266.5LowMer Health- [place], ORPOC pO2 Temp NOT REPORTEDmm HgMer Health- [place], ORPositive Base Excess, Qkp3XuyxNpwrx Health- [place], KYPt TempNOT REPORTEDMer Health- [place], ORSample SiteArterial LineMer Health- [place], KYTCO2 (calc), Art34 mmol/LHigh22 - 29 mmol/LMhocking valley community hospitaly Health- [place], [place] Graham TestNOT APPLICABLEKettering Health Behavior[facility]- [place], HPBFE992.0[facility]- [place], [place] Interpretation and review of laboratory resultsAbnormalKettering Health Behavioral Medical Center Health- [place], KYMode PRVCMercy Health- [place], KYNegative Base Excess, ArtNOT REPORTEDKettering Health Behavioral Medical Center Health- [place], KYO2 Device/Flow/%Adult VentilatorMer Health- [place], ORPOC LMX693.5 mmol/LHigh21 - 28 mmol/LMhocking valley community hospitaly Health- [place], ORPOC O2 SAT94 %94 - 98 %[facility]- [place], ORPOC jHV698.2HighMer Health- [place], ORPOC pCO2 TempNOT REPORTEDmm HgMer Health- [place], ORPOC pH7.450[facility]- [place], KYPOC pH TempNOT REPORTEDMercy Health- [place], KYPOC PO270.8LowMer Health- [place], KYPOC pO2 TempNOT REPORTEDmm HgMer Health- [place], [place] Positive Base Excess, Gzw4IihfOakca Health- [place], KYPt TempNOT REPORTEDMercy Health- [place], [...] [place], KYCreatinine [Mass/Vol] 1.16 mg/dLHigh0.5 - 0.9 mg/dLKettering Health Behavioral [facility] Center Health- [place], KYGFR Dzduuyah47 mL/min Low>60[facility]- [place], KYGFR CommentMer Health- [place], KYGFR Non- Nuwyhbqe34 mL/minLow>60[facility]- [place], KYGFR StagingNOT REPORTEDMer Health- [place], KYGlucose [Mass/Vol]239 mg/lFQxoj37 - 99 mg/dLK[facility]tering Health [facility]- [place], [place] Interpretation and review of laboratory resultsAbnormalMercy Health- [place], [place] Potassium [Moles/Vol]3.5 mmol/LLow3.7 - 5.3 mmol/LMercy Health- [place], KYSodium [Moles/Vol]144 mmol/L135 - 144 mmol/LMercy Health- [place], KYUrea nitrogen [Mass/Vol]22 mg/dL8 - 23 mg/dLKettering Health Behavioral [facility] Center [facility]- [place], KYBasic Metabolic Profon 07-14-2019(cont.)[facility] - ColumbusComment on above:Result Comment: Average GFR for 70 or more years old: 75 mL/min/1.73sq m Chronic Kidney Disease: <60 mL/min/1.73sq m Kidney failure: <15 mL/min/1.73sq m eGFR calculated using average adult body mass. Additional eGFR calculator available at: http://www.[employer].Emer[facility]/multiple_crcl_2012.htmPerformed By: #### CDP, PFA, CP, GLYHGB #### [facility] [address] [place] [address] Executive Officer: Savage Jacob MDAnion gap [Moles/Vol]14 mmol/LNormal9-17[facility] Medical CenterComment on above:Performed By: #### CDP, PFA, CP, GLYHGB #### [facility] [address] [place] [place] [address] Executive Officer: Savage Jacob MDCalcium [Mass/Vol]8.1 mg/dLLow8.6-10.4[facility] Beach[facility] Medical CenterComment on above:Performed By: #### CDP, PFA, CP, GLYHGB #### [facility] [address] [place] [address] Executive Officer: Savage Jacob MDChloride [Moles/Vol]103 mmol/WFdrqwt84-597KrtzfUniversity Hospitals Beachwood Medical CenterComment on above:Performed By: #### CDP, PFA, CP, GLYHGB #### [facility] [address] [place] [address] Executive Officer: Savage Jcaob MDCO2 [Moles/Vol]27 mmol/WVeumyk09-66GkklkUniversity Hospitals Beachwood Medical CenterComment on above:Performed By: #### CDP, PFA, CP, GLYHGB #### [facility] [address] [place] [address] Executive Officer: Savage Jacob MDCreatinine [Mass/Vol]1.16 mg/dLHigh0.50-0.90 [facility] CenterComment on above:Performed By: #### CDP, PFA, CP, GLYHGB #### [facility] [address] [place] [address] Executive Officer: Savage Jacob MDGFR, Amer56 mL/minLow>60MerParadise Valley HospitalComment on above:Performed By: #### CDP, PFA, CP, GLYHGB #### [facility] [address] [place] [address] Executive Officer: Savage Jacob MDGFR,non Amer46 mL/minLow>60MerParadise Valley HospitalComment on above:Performed By: #### CDP, PFA, CP, GLYHGB #### [address] [address] Executive Officer: Savage Jacob MDGlucose [Mass/Vol]239 mg/kBOdrl52-52RzzodEmanate Health/Foothill Presbyterian HospitalComment on above:Performed By: #### CDP, PFA, CP, GLYHGB #### [address] [address] Executive Officer: HALEY Barahonaotassium [Moles/Vol]3.5 mmol/LLow3.7-5.3MEmanate Health/Foothill Presbyterian HospitalComment on above:Performed By: #### CDP, PFA, CP, GLYHGB #### [address] [address] Executive Officer: ZANA Barahonaodium [Moles/Vol]144 mmol/BNpttvl997-043JbmwsUniversity Hospitals Beachwood Medical CenterComment on above:Performed By: #### CDP, PFA, CP, GLYHGB #### [facility] [address] [place] [address] Executive Officer: Savage Jacob MDUrea nitrogen [Mass/Vol]22 mg/dLNormal8-23MerParadise Valley HospitalComment on above:Performed By: #### CDP, PFA, CP, GLYHGB #### [facility] [address] [place] [address] Executive Officer: FELICITY Barahona/CRE RatioNOT REPORTEDNormal9-20[facility] Medical CenterComment on above:Performed By: #### CDP, PFA, CP, GLYHGB #### [facility] [address] [place] [address] Executive Officer: ZANA Barahonataging:NOT REPORTEDNormalUniversity Hospitals Beachwood Medical CenterComment on above:Performed By: #### CDP, PFA, CP, GLYHGB #### [facility] [address] [place] [address] Executive Officer: Ulysses Barahona 26-14-9197Jlsujtxrldp distribution width (RBC) [Ratio]15.2 %High11.8-14.4[facility] Medical CenterComment on above:Performed By: #### CDP, PFA, CP, GLYHGB #### [facility] [address] [place] [address] Executive Officer: Savage Jacob MDHematocrit (Bld) [Volume fraction]28.9 %Low 36.3-47.1MEmanate Health/Foothill Presbyterian HospitalComment on above:Performed By: #### CDP, PFA, CP, GLYHGB #### [facility] [employer] [address] [place] [address] Executive Officer: Savage Jacob MDHemoglobin (Bld) [Mass/Vol]9.0 g/dLLow11.9-15.1 [facility] Medical CenterComment on above:Performed By: #### CDP, PFA, CP, GLYHGB #### [facility] [address] [place] [address] Executive Officer: ALISSA BarahonaCH (RBC) [Entitic mass]28.7 xzEujbsu05.2-33.5 [facility] CenterComment on above:Performed By: #### CDP, PFA, CP, GLYHGB #### [address] [address] Executive Officer: ALISSA BarahonaCHC (RBC) [Mass/Vol]31.1 g/mAVmtfus77.4-34.8 [facility] CenterComment on above:Performed By: #### CDP, PFA, CP, GLYHGB #### [address] [address] Executive Officer: ALISSA BarahonaCV (RBC) [Entitic vol]92.0 dNHprwxp00.6-102.9 [facility] CenterComment on above:Performed By: #### CDP, PFA, CP, GLYHGB #### [address] [address] Executive Officer: Savage Jacob MDNRBC Automated0.3 per 100 WBCHigh0.0[facility] Beach[facility] Medical CenterComment on above:Performed By: #### CDP, PFA, CP, GLYHGB #### [address] [address] Executive Officer: Daniel Barahona mean volume (Bld) [Entitic vol]9.4 fL Normal8.1-13.5[facility] Medical CenterComment on above:Performed By: #### CDP, PFA, CP, GLYHGB #### [address] [address] Executive Officer: Taylor Barahonatejibmo (Bld) [#/Vol]219 10*3/tHGknkkp918-020 [facility] CenterComment on above:Performed By: #### CDP, PFA, CP, GLYHGB #### [address] [address] Executive Officer: ISABELLE BarahonaBC (Bld) [#/Vol]3.14 10*6/uLLow3.95-5.11[facility] CenterComment on above:Performed By: #### CDP, PFA, CP, GLYHGB #### [facility] [address] [place], [place] [phone] Executive Officer: Savage Jacob MDWBC (Bld) [#/Vol]18.9 10*3/uLHigh3.5-11.3Mer[facility] Hospital Of West CovinaComment on above:Performed By: #### CDP, PFA, CP, GLYHGB #### [facility] [address] [place], [place] [phone] Executive Officer: Savage Jacob MDErythrocyte distribution width (RBC) [Ratio]15.2 %High11.8 - 14.4 %[facility], KYHematocrit (Bld) [Volume fraction]28.9 % Low36.3 - 47.1 %[facility], ORHemoglobin (Bld) [Mass/Vol]9.0 g/dLLow11.9 - 15.1 g/dLUniversity Hospitals [facility], ORInterpretation and review of laboratory results AbnormalUniversity Hospitals [facility], [facility] (RBC) [Entitic mass]28.7 pg25.2 - 33.5 pgUniversity Hospitals [facility] Center, [facility] – STROUDHC (RBC) [Mass/Vol]31.1 g/dL28.4 - 34.8 g/dLUniversity Hospitals [facility], [place] MCV (RBC) [Entitic vol]92.0 fL82.6 - 102.9 fLUniversity Hospitals Geneva Medical Center, ORPlatelet mean volume (Bld) [Entitic vol]9.4 fL8.1 - 13.5 fLUniversity Hospitals Geneva Medical Center, KYPlatelets (Bld) [#/Vol]219 10*3/uLUniversity Hospitals [facility] Center, KYRBC (Bld) [#/Vol]3.14 10*6/uLLow3.95 - 5.11 m/[facility], KYWBC (Bld) [#/Vol]0.3 10*3/uLHigh0.0 per 100 WBC [facility], KYWBC (Bld) [#/Vol]18.9 10*3/uLTriHealth Bethes[facility] North Hospital, KYK (Potassium)on 43-54-1179Tucgwiezv [Moles/Vol]3.2 mmol/LLow3.7-5.3Mer[facility] Of West CovinaComment on above:Performed By: #### CDP, PFA, CP, GLYHGB #### [facility] [address] [place], [place] [phone] Executive Officer: Savage Jacob MDMagnesiumon 66-56-9599Mchulbnvx [Mass/Vol]2.0 mg/dLNormal1.6-2.6Mer[facility] Of West CovinaComment on above:Performed By: #### CDP, PFA, CP, GLYHGB #### [facility] [address] [place], [place] [phone] Executive Officer: Savage Jacob MDMagnesium [Mass/Vol]2.0 mg/dL1.6 - 2.6 mg/dL [facility], KYOtheron 75-16-6560Zskidpsdvpfvrn and review of laboratory resultsAbPomerene Hospital, [facility] Glucose Fingerstickon 07-14-2019 Interpretation and review of laboratory resultsAbPomerene Hospital, [facility] Xbfobto887 mg/qHOyim43 - 105 mg/dLUniversity Hospitals [facility], KYInterpretation and review of laboratory resultsAbPomerene Hospital, [facility] Uykxdcl008 mg/lFXtqs24 - 105 mg/dLUniversity Hospitals [facility], KYInterpretation and review of laboratory results AbnormalUniversity Hospitals [facility], [facility] Rysiodl092 mg/xYExlg93 - 105 mg/dLUniversity Hospitals [facility], KYInterpretation and review of laboratory resultsAbPomerene Hospital, [facility] Fxrqelu387 mg/cRXanv15 - 105 mg/dLUniversity Hospitals [facility], KYPOCT Glucoseon 95-75-5337TCG Cikvbkl934 mg/dXIqlz83 - 100 mg/dLUniversity Hospitals [facility], KYPOTASSIUMon 72-50-6817Gqkbkzyxvyqaej and review of laboratory resultsAbPomerene Hospital, ORPotassium [Moles/Vol]3.2 mmol/LLow3.7 - 5.3 mmol/LMWVUMedicine Harrison [facility] [place], KYPTon 13-52-9654BKK Coag (PPP) [Relative time]1.1 {INR}[facility] - ColumbusComment on above:Result Comment: Therapeutic Range: Moderate Anticoagulant Intensity: INR = 2.0-3.0 High Anticoagulant Intensity: INR = 2.5-3.5Performed By: #### CDP, PFA, CP, GLYHGB #### [facility] [address] [place], [place] [phone] Executive Officer: HALEY BarahonaT Coag (PPP) [Time]11.1 sNormal9.0-12.0[facility] Medical CenterComment on above:Performed By: #### CDP, PFA, CP, GLYHGB #### [facility] [address] [place], [place] [phone] Executive Officer: Ric Barahonafrye regional [facility]-INRon 89-76-5393IKS Coag (PPP) [Relative time]1.1 {INR}[facility], KYPT Coag (PPP) [Time]11.1 [facility], KYXR CHEST PORTABLEon 38-73-2754HI CHEST PORTABLEEXAMINATION: ONE XRAY VIEW OF THE [...] Signed by: Kaylen Ying MD 07/14/19 Final resultNormalMarietta Memorial Hospital, [facility], [facility], ORAPTAbrazo Arrowhead Campus 19-53-6582uIQL Coag (Bld) [Time]39.9 s High20.5-30.5[facility] Medical CenterComment on above:Performed By: #### CDP, PFA, CP, GLYHGB #### [facility] [address] [place] [address] [phone] Executive Officer: Savage Jacob MDaPTT Coag (Bld) [Time]39.9 [facility], KYInterpretation and review of laboratory resultsAbnoTriHealth Good Samaritan Hospital, KYaPTT Coag (Bld) [Time]56.3 sHigh20.5-30.5[facility] Comment on above:Result Comment: ADDED ONPerformed By: #### CDP, PFA, CP, GLYHGB #### [facility] [address] [place] [address] [phone] Executive Officer: Shalom Barahona Coag (Bld) [Time]56.3 [facility], KYInterpretation and review of laboratory resultsAbnoTriHealth Good Samaritan Hospital, KYAnion Gap (Calc) POCon 58-74-4366Kartq gap [Moles/Vol]10 mmol/L7 - 16 mmol/L [facility], KYAnion gap [Moles/Vol]10 mmol/L7 - 16 mmol/LMOur Lady of [facility], KYAnti-Thy Peroxidaseon 20-60-4211Ysyr-Thy Cjebdhqoau33.7 IU/mLHigh0.0-35.0 [facility] CenterComment on above:Performed By: #### CDP, PFA, CP, GLYHGB #### [facility] [address] [place] [address] [phone] Executive Officer: Rain Barahonal Blood Gas, POCon 50-27-9311Qarvv Test PositiveUniversity Hospitals Geneva Medical Center, FTGFP870.0[facility], KYInterpretation and review of laboratory resultsAbPomerene Hospital, KYModePRVCMOur Lady of [facility], KYNegative Base Excess, ArtNOT REPORTEDMercy Health- [place], KYO2 Device/Flow/% Adult VentilatorMercy Health- [place], ORPOC OMA198.8 mmol/LHigh21 - 28 mmol/LMercy Health- [place], ORPOC O2 SAT98 %94 - 98 %[facility]- [place], [facility] mCX771.1HighMercy Health- [place], ORPOC pCO2 TempNOT REPORTEDmm HgMercy Health- [place], ORPOC pH7.423[facility]- [place], [place]POC pH TempNOT REPORTEDMercy Health- [place], ORPOC PO298.2[facility]- [place], [place]POC pO2 TempNOT REPORTEDmm HgMercy Health- [place], KYPositive Base Excess, Mud9TcvbQggyt Health- [place], KYPt TempNOT REPORTEDMercy Health- [place], [place] Sample SiteArterial LineMercy Health- [place], KYTCO2 (calc), Art34 mmol/LHigh22 - 29 mmol/LMercy Health- [place], KYAllen TestNOT APPLICABLEMercy Health- [place], KVNOR143.0 [facility]- [place], KYModePRVCMercy Health- [place], KYNegative Base Excess, ArtNOT REPORTEDMercy Health- [place], ORO2 Device/Flow/%Adult VentilatorMer Health- [place], [place] POC PTV396.0 mmol/LHigh21 - 28 mmol/LMercy Health- [place], [facility] O2 SAT97 %94 - 98 % [facility]- [place], ORPOC vXW752.0HighMer Health- [place], [facility] pCO2 TempNOT REPORTEDmm HgMercy Health- [place], [facility] pH7.414[facility]- [place], [facility] pH TempNOT REPORTEDMercy Health- [place], [facility]C PO292.9[facility]- [place], ORPO pO2 TempNOT REPORTEDmm HgMercy Health- [place], KYPositive Base Excess, Jpg6LlnzQlutl Health- [place], KYPt TempNOT REPORTEDMercy Health- [place], ORSample SiteArterial LineMercy Health- [place], KYTCO2 (calc), Art34 mmol/LHigh22 - 29 mmol/LMercy Health- [place], KYAllen Test NOT APPLICABLEMercy Health- [place], MARAK443.0[facility]- [place], KYModePRVC/PSMercy Health- [place], KYNegative Base Excess, ArtNOT REPORTEDMercy Health- [place], KYO2 Device/Flow/%Adult VentilatorMercy Health- [place], KYPOC UOF180.0 mmol/LHigh21 - 28 mmol/LMercy Health- [place], KYPOC O2 SAT99 %High94 - 98 %[facility]- [place], ORPOC wGF055.7HighMercy Health- [place], ORPOC pCO2 TempNOT REPORTEDmm HgMercy Health- [place], KYPOC pH7.391[facility]- [place], KYPOC pH TempNOT REPORTEDMercy Health- [place], KYPOC SM8693.0HighMercy Health- [place], ORPOC pO2 TempNOT REPORTEDmm HgMercy Health- [place], KYPositive Base Excess, Dxn5EphiMfhbe Health- [place], KYPt TempNOT REPORTEDMer Health- [place], KYSample SiteArterial LineMer Health- [place], KYTCO2 (calc), Art34 mmol/LHigh22 - 29 mmol/LMercy Health- [place], ORBASI METABOLIC PANELon 07-13-2019 Bun/Cre RatioNOT REPORTEDMercy Health- [place], KYCO2 [Moles/Vol]30 mmol/L20 - 31 mmol/LMer[facility]- [place], KYGFR Xkyhkxnd37 mL/minLow>60[facility]- [place], KYGFR CommentMer Health- [place], KYGFR Non- Szibtvuq42 mL/minLow>60[facility]- [place], KYGFR StagingNOT REPORTEDMer Health- [place], ORInterpretation and review of laboratory resultsAbnormalMer Health- [place], [facility] Metabolic Panelon 11-16-9343Fatfk gap [Moles/Vol]14 mmol/L9 - 17 mmol/LMercy Health- [place], KYBun/Cre RatioNOT REPORTEDMercy Health- [place], KYCalcium [Mass/Vol]8.8 mg/dL8.6 - 10.4 mg/dLMercy Health- [place], KYChloride [Moles/Vol]101 mmol/L98 - 107 mmol/LMercy Health- [place], KYCreatinine [Mass/Vol]1.36 mg/dLHigh0.5 - 0.9 mg/dLMercy Health- [place], KYGFR Lttltybx02 mL/minLow>60[facility]- [place], KYGFR CommentMercy Health- [place], KYGFR Non- Fsefnvcq80 mL/minLow>60[facility], KYGFR StagingNOT REPORTEDUniversity [facility]als [facility], KYGlucose [Mass/Vol]156 mg/pODxwt57 - 99 mg/dLUniversity Hospitals [facility], KYInterpretation and review of laboratory resultsAbnormal [facility], KYPotassium [Moles/Vol]3.1 mmol/LLow3.7 - 5.3 mmol/LMOur Lady of [facility], KYSodium [Moles/Vol]145 mmol/YGzkd009 - 144 mmol/LMOur Lady of [facility], KYUrea nitrogen [Mass/Vol]26 mg/dLHigh8 - 23 mg/dLUniversity Hospitals Geneva [facility], KYBasic Metabolic Profon 96-57-2180LJI, Amer53 mL/minLow>60[facility] CenterComment on above:Performed By: #### CDP, PFA, CP, GLYHGB #### [facility] [address] [place] [address] Executive Officer: Savage Jacob MDGFR,non Amer44 mL/minLow>60[facility] Medical CenterComment on above:Performed By: #### CDP, PFA, CP, GLYHGB #### [facility] [address] [place] [address] Executive Officer: FELICITY Barahona/SHALINI BridgesOT REPORTEDNormal9-20University Hospitals Beachwood Medical CenterComment on above:Performed By: #### CDP, PFA, CP, GLYHGB #### [facility] [address] [place] [address] Executive Officer: ZANA Barahonataging:NOT REPORTEDNormalUniversity Hospitals Beachwood Medical CenterComment on above:Performed By: #### CDP, PFA, CP, GLYHGB #### [facility] [address] [place] [address] Executive Officer: Chayito Barahona gap [Moles/Vol]13 mmol/LNormal9-17[facility], KYComment on above:Performed By: #### CDP, PFA, CP, GLYHGB #### [facility] [address] [place] [address] Executive Officer: Savage Jacob MDCalcium [Mass/Vol]8.6 mg/dLNormal8.6-10.4[facility], KYComment on above:Performed By: #### CDP, PFA, CP, GLYHGB #### [address] [address] Executive Officer: Savage Jacob MDChloride [Moles/Vol]104 mmol/UKahhlg49-843Bhkcs Health- [place], KYComment on above:Performed By: #### CDP, PFA, CP, GLYHGB #### [facility] [address] [place] [address] Executive Officer: Savage Jacob MDCreatinine [Mass/Vol]1.21 mg/dLHigh0.50-0.90 [facility], KYComment on above:Performed By: #### CDP, PFA, CP, GLYHGB #### [facility] [address] [place] [address] Executive Officer: Savage Jacob MDGlucose [Mass/Vol]120 mg/pPFrbi07-73[facility]- [place], KYComment on above:Performed By: #### CDP, PFA, CP, GLYHGB #### [facility] [address] [place] [address] Executive Officer: Savage Jacob MDPotassium [Moles/Vol]3.2 mmol/LLow3.7-5.3MOur [facility] of [facility] [place], KYComment on above:Performed By: #### CDP, PFA, CP, GLYHGB #### [facility] [address] [place] [address] Executive Officer: Savage Jacob MDSodium [Moles/Vol]147 mmol/UWluj375-303FovfgFirstHealth [facility] on above:Performed By: #### CDP, PFA, CP, GLYHGB #### [facility] [address] [place] [address] Executive Officer: Savage Jacob MDUrea nitrogen [Mass/Vol]24 mg/dLHigh8-23[place], KYComascension borgess allegan hospital on above:Performed By: #### CDP, PFA, CP, GLYHGB #### [facility] [address] [place] [address] Executive Officer: Savage Jacob MD(cont.)[facility] Comment on above:Result Comment: Average GFR for 70 or more years old: 75 mL/min/1.73sq m Chronic Kidney Disease: <60 mL/min/1.73sq m Kidney failure: <15 mL/min/1.73sq m eGFR calculated using average adult body mass. Additional eGFR calculator available at: http://www.Nodeable/multiple_crcl_2012.htmPerformed By: #### CDP, PFA, CP, GLYHGB #### [facility] [address] [place] [address] Executive Officer: Savage Jacob MDAnion gap [Moles/Vol]14 mmol/LNormal9-17[facility]als Beachwood Medical CenterComment on above:Performed By: #### CDP, PFA, CP, GLYHGB #### [facility] [address] [place] [address] Executive Officer: Savage Jacob, MDCalcium [Mass/Vol]8.8 mg/dLNormal8.6-10.4[facility] Beachwood Medical CenterComment on above:Performed By: #### CDP, PFA, CP, GLYHGB #### [facility] [address] [place] [address] Executive Officer: Savage Jacob MDChloride [Moles/Vol]101 mmol/PHwldux71-685YfulfUniversity Hospitals Beachwood Medical CenterComment on above:Performed By: #### CDP, PFA, CP, GLYHGB #### [facility] [address] [place] [address] Executive Officer: Savage Jacob MDCO2 [Moles/Vol]30 mmol/WSawtcm98-13RpqpfUniversity Hospitals Beachwood Medical CenterComment on above:Performed By: #### CDP, PFA, CP, GLYHGB #### [address] [address] Executive Officer: CASEY Barahonareatinine [Mass/Vol]1.36 mg/dLHigh0.50-0.90 [facility] Beachwood Medical CenterComment on above:Performed By: #### CDP, PFA, CP, GLYHGB #### [address] [address] Executive Officer: Savage Jacob MDGFR, Amer47 mL/minLow>60[facility] Beachwood Medical CenterComment on above:Performed By: #### CDP, PFA, CP, GLYHGB #### [address] [address] Executive Officer: Savage Jacob MDGFR,non Amer38 mL/minLow>60[facility] Beachwood Medical CenterComment on above:Performed By: #### CDP, PFA, CP, GLYHGB #### [address] [address] Executive Officer: Savage Jacob MDGlucose [Mass/Vol]156 mg/nOGnvp67-29Sevtp Doctors Hospital Of West CovinaComment on above:Performed By: #### CDP, PFA, CP, GLYHGB #### [address] [address] Executive Officer: Savage Jacob MDPotassium [Moles/Vol]3.1 mmol/LLow3.7-5.3Mhocking valley community hospitaly [facility] Hospital Of West CovinaComment on above:Performed By: #### CDP, PFA, CP, GLYHGB #### [facility] [address] [place] [address] Executive Officer: ZANA Barahonaodium [Moles/Vol]145 mmol/HPqhw436-566FciceUniversity Hospitals Beachwood Medical CenterComment on above:Performed By: #### CDP, PFA, CP, GLYHGB #### [facility] [address] [place] [address] Executive Officer: Sherie Barahona nitrogen [Mass/Vol]26 mg/dLHigh8-23[facility] Beachwood Medical CenterComment on above:Performed By: #### CDP, PFA, CP, GLYHGB #### [facility] [address] [place] [address] Executive Officer: FELICITY Barahona/SHALINI Ziegler REPORTEDNormal9-20[facility]als Beachwood Medical CenterComment on above:Performed By: #### CDP, PFA, CP, GLYHGB #### [facility] [address] [place] [address] Executive Officer: ZANA Barahonataging:NOT REPORTEDSelect Medical Specialty Hospital - ColumbusComment on above:Performed By: #### CDP, PFA, CP, GLYHGB #### [facility] [address] [place] [address] Executive Officer: CASEY BarahonaO2 [Moles/Vol]30 mmol/YXlzekj61-68Xvlwd Health- [place], KYComment on above:Performed By: #### CDP, PFA, CP, GLYHGB #### [facility] [address] [place] [address] Executive Officer: CASEY BarahonaALCIUM, IONIC (POC)on 60-23-5665PWH Ionized Calcium1.14 mmol/LLow1.15 - 1.33 mmol/LMOur Lady of [facility] [place], KYPOC Ionized Calcium 1.16 mmol/L1.15 - 1.33 mmol/LMWVUMedicine Harrison Community Hospital [place], KYCBCon 79-81-3093Rfzmvcnwaww distribution width (RBC) [Ratio]15.5 %High11.8-14.4[facility] Beachwood Medical CenterComment on above:Performed By: #### CDP, PFA, CP, GLYHGB #### [facility] [address] [place] [address] Executive Officer: Savage Jacob MDHematocrit (Bld) [Volume fraction]25.0 %Low 36.3-47.1MEmanate Health/Foothill Presbyterian HospitalComment on above:Performed By: #### CDP, PFA, CP, GLYHGB #### [facility] [address] [place] [place] [address] Executive Officer: Savage Jacob MDHemoglobin (Bld) [Mass/Vol]7.7 g/dLLow11.9-15.1 [facility] Medical CenterComment on above:Performed By: #### CDP, PFA, CP, GLYHGB #### [facility] [address] [place] [address] Executive Officer: ALISSA BarahonaCH (RBC) [Entitic mass]28.4 yyCbvxzj91.2-33.5 [facility] Medical CenterComment on above:Performed By: #### CDP, PFA, CP, GLYHGB #### [facility] [address] [place] [address] Executive Officer: JAIME BarahonaC (RBC) [Mass/Vol]30.8 g/gWCccywm13.4-34.8 [facility] Medical CenterComment on above:Performed By: #### CDP, PFA, CP, GLYHGB #### [facility] [address] [place] [address] Executive Officer: ALISSA BarahonaCV (RBC) [Entitic vol]92.3 aSXjiqxc91.6-102.9 [facility] Medical CenterComment on above:Performed By: #### CDP, PFA, CP, GLYHGB #### [facility] [address] [place] [address] Executive Officer: Savage Jacob MDNRBC Automated0.5 per 100 WBCHigh0.0[facility]als Beachwood Medical CenterComment on above:Performed By: #### CDP, PFA, CP, GLYHGB #### [address] [address] Executive Officer: Taylor Barahonatelet mean volume (Bld) [Entitic vol]9.4 fL Normal8.1-13.5[facility] Beachwood Medical CenterComment on above:Performed By: #### CDP, PFA, CP, GLYHGB #### [address] [address] Executive Officer: HALEY Barahonalatelets (Bld) [#/Vol]278 10*3/kYWthiao588-058 [facility] Medical CenterComment on above:Performed By: #### CDP, PFA, CP, GLYHGB #### [facility] [address] [place] [address] Executive Officer: ISABELLE BarahonaBC (Bld) [#/Vol]2.71 10*6/uLLow3.95-5.11[facility] Medical CenterComment on above:Performed By: #### CDP, PFA, CP, GLYHGB #### [facility] [address] [place] [address] Executive Officer: Savage Jacob MDWBC (Bld) [#/Vol]13.9 10*3/uLHigh3.5-11.3MEmanate Health/Foothill Presbyterian HospitalComment on above:Performed By: #### CDP, PFA, CP, GLYHGB #### [facility] [address] [place] [address] Executive Officer: Savage Jacob MDErythrocyte distribution width (RBC) [Ratio]15.5 %High11.8 - 14.4 %[place], KYHematocrit (Bld) [Volume fraction]25.0 % Low36.3 - 47.1 %[facility], ORHemoglobin (Bld) [Mass/Vol]7.7 g/dLLow11.9 - 15.1 g/dLUniversity Hospitals Conne[facility] [place], ORInterpretation and review of laboratory results AbnormalUniversity Hospitals [facility], ORMCH (RBC) [Entitic mass]28.4 pg25.2 - 33.5 pgUniversity Hospitals [facility] Medical Center, ORMCHC (RBC) [Mass/Vol]30.8 g/dL28.4 - 34.8 g/dLUniversity Hospitals [facility], [place] MCV (RBC) [Entitic vol]92.3 fL82.6 - 102.9 fLUniversity Hospitals Geneva Medical Center, ORPlatelet mean volume (Bld) [Entitic vol]9.4 fL8.1 - 13.5 fLUniversity Hospitals Geneva Medical Center, ORPlatelets (Bld) [#/Vol]278 10*3/uLUniversity Hospitals [facility], ORRBC (Bld) [#/Vol]2.71 10*6/uLLow3.95 - 5.11 m/uLUniversity Hospitals [facility] Medical Center, ORWBC (Bld) [#/Vol]0.5 10*3/uLHigh0.0 per 100 WBC [facility], ORWBC (Bld) [#/Vol]13.9 10*3/uLHighUniversity Hospitals [facility], [place] CHLORIDE (POC)on 21-96-1644LXE Lhttruyj976 mmol/L98 - 107 mmol/[facility]- [place], ORPOC Ctpsnvdz926 mmol/L98 - 107 mmol/[facility], ORCreatinine W/GFR Point of Careon 27-77-5563LLL Abqdvqj79 mL/minLow>60[facility]- [place], KYGFR CommentUniversity Hospitals Conneaut [facility] Center [place], KYGFR Non- Fryjequb46 mL/minLow>60[facility] [place], ORPOC Creatinine1.38 mg/dLHigh0.51 - 1.19 mg/dLUniversity Hospitals Conne[facility] Medical Center [place], KYGFR Qjublho84 mL/minLow>60[facility]- [place], KYGFR CommentUniversity Hospitals Conneaut [facility] Center [place], ORGFR Non- Opuvxesf61 mL/minLow>60[facility], KYPOC Creatinine1.38 mg/dL High0.51 - 1.19 mg/dLUniversity Hospitals [facility], KYCult,Respiratoryon 07-13-2019 Cult,RespiratorySpecimen Description .TRACHEAL ASPIRATE Special Requests NOT REPORTED Direct Exam >25 NEUTROPHILS/LPF < 10 EPITHELIAL CELLS/LPF NO SIGNIFICANT PATHOGENS SEEN Culture NORMAL RESPIRATORY ROSEANNA LIGHT GROWTH Report Status FINAL 07/13/2019NormalMerParadise Valley HospitalComment on above:Performed By: #### CDP, PFA, CP, GLYHGB #### [facility] [address] [place], [place] 1091008 Executive Officer: CASEY Barahonauk healthcare, Respiratoryon 30-55-2546SfbzufpVXNUOH RESPIRATORY ROSEANNA LIGHT GROWTHUniversity Hospitals [facility], KYDirect Exam< 10 EPITHELIAL CELLS/LPFMOur Lady of [facility] - [place], KYDirect ExamNO SIGNIFICANT PATHOGENS SEENUniversity Hospitals [facility], ORDirect Exam>25 NEUTROPHILS/LPFMOur Lady of [facility] [place], KYSpecial Requests NOT REPORTEDUniversity [facility]als [facility], KYSpecimen Description.TRACHEAL ASPIRATEUniversity Hospitals [facility] Medical Center, KYHemoglobin and hematocrit, bloodon 44-79-9377KVT Sikxdfrwmk31 %Low 36 - 46 %[facility], KYPOC Hemoglobin7.6 g/dLLow12 - 16 g/dLUniversity Hospitals Geneva Medical Center, KYPOC Kdfooihejq90 %Low36 - 46 %[facility], ORPOC Hemoglobin7.6 g/dL Low12 - 16 g/dLUniversity Hospitals Geneva [facility] Center, KYLactic Acid, POCon 26-11-4498MOR Lactic Acid 0.40 mmol/LLow0.56 - 1.39 mmol/LMOur Lady of [facility] [place], KYPOC Lactic Acid0.55 mmol/L Low0.56 - 1.39 mmol/LMOur Lady of [facility] [place], KYMagnesiumon 74-11-2255Nymgqbqsr [Mass/Vol]2.0 mg/dLNormal1.6-2.6[facility] Hospital Of West CovinaComment on above:Performed By: #### CDP, PFA, CP, GLYHGB #### [facility] [address] [place], [place] [id number] Executive Officer: Miles Barahonagnesium [Mass/Vol]2.0 mg/dL1.6 - 2.6 mg/dL [facility], KYOtheron 86-77-5301PzrgjUniversity Hospitals Geneva Medical Center, KYInterpretation and review of laboratory resultsAbnoTriHealth Good Samaritan Hospital, KYInterpretation and review of laboratory resultsAbnoTriHealth Good Samaritan Hospital, ORPOC Glucose Fingerstick on 20-38-7332Eyvjububwbbcmx and review of laboratory resultsAbnoTriHealth Good Samaritan Hospital, KYPOC Cpwgvzw369 mg/pSJjrd29 - 105 mg/dLUniversity [facility]als [facility], [place] Interpretation and review of laboratory resultsAbnoTriHealth Good Samaritan Hospital, ORPOC Cmmsgph289 mg/dKNfnh60 - 105 mg/dLUniversity Hospitals [facility], ORInterpretation and review of laboratory resultsAbPomerene Hospital, ORPO Bvqnsnj478 mg/xVHhbb29 - 105 mg/dLUniversity Hospitals [facility], KYInterpretation and review of laboratory results AbnormalUniversity Hospitals [facility], KYPOC Olvkyvg618 mg/qYIvrv11 - 105 mg/dLUniversity Hospitals [facility], KYPOCT Glucoseon 90-25-5814VIU Uzhuzzp508 mg/vAWgqw98 - 100 mg/dLUniversity Hospitals [facility], KYPOC Kjabnhx229 mg/qDRsdu75 - 100 mg/dLUniversity Hospitals [facility], [place] POTASSIUM (POC)on 81-46-9900KKY Potassium3.0 mmol/LLow3.5 - 4.5 mmol/[facility], ORPOC Potassium3.0 mmol/LLow3.5 - 4.5 mmol/[facility], KYPTon 08-53-4834UNU Coag (PPP) [Relative time]1.1 {INR}NormalUniversity Hospitals Beachwood Medical CenterComment on above:Result Comment: Therapeutic Range: Moderate Anticoagulant Intensity: INR = 2.0-3.0 High Anticoagulant Intensity: INR = 2.5-3.5Performed By: #### CDP, PFA, CP, GLYHGB #### [facility] [address] [place], [place] [phone] Executive Officer: Savage Madoff, MDPT Coag (PPP) [Time]11.5 sNormal9.0-12.0[facility]wood Medical CenterComment on above:Performed By: #### CDP, PFA, CP, GLYHGB #### [facility] [address] [place], [place] [phone] Executive Officer: HALEY Barahonahosphoruson 31-85-1076Glthsuyui [Mass/Vol]4.4 mg/dL2.6 - 4.5 mg/dLUniversity Hospitals [facility] Center, KYPhosphorus, Inorg.on 07-13-2019 Phosphorus, Inorg.4.4 mg/dLNormal2.6-4.5[facility] Medical CenterComment on above:Performed By: #### CDP, PFA, CP, GLYHGB #### [facility] [address] [place] [address] [phone] Executive Officer: Christo Barahona-INRon 53-59-5390KPZ Coag (PPP) [Relative time]1.1 {INR}[facility] [place], KYPT Coag (PPP) [Time]11.5 sMOur Lady of [facility], KYSODIUM (POC)on 67-05-8041OTH Bqxkag752 mmol/L138 - 146 mmol/LMercy Health- [place], KYPOC Pcmvfz995 mmol/L138 - 146 mmol/LMhocking valley community hospitaly Health- [place], KYT3, Freeon 07-13-2019 Free T3 [Mass/Vol]1.76 pg/mLLow2.02-4.43[facility] Medical CenterComment on above:Performed By: #### CDP, PFA, CP, GLYHGB #### [facility] [address] [place], [place] [phone] Executive Officer: Swati Barahona T3 [Mass/Vol]1.76 pg/mLLow2.02 - 4.43 pg/mL [facility], KYInterpretation and review of laboratory resultsAbnormLakeHealth TriPoint Medical Center, KYTHYROID PEROXIDASE ANTIBODYon 40-94-9041Kebfttdpsxuurl and review of laboratory resultsAbnormalUniversity Hospitals Geneva [facility], KYThyroid Peroxidase (Tpo) Ab 35.7HighUniversity Hospitals Geneva Medical Center, KYThyroglobulin + ATAon 19-34-8673Qrimzhuhsquuf78.7 ng/mLNormal0.0-63.4[facility] Medical CenterComment on above:Result Comment: Thyroglobulin (Tg) is measured by the Siemens Immulite 2000 method, which has a lower limit of quantification of 0.2 ng/mL. Tg results less than 0.2 ng/mL are consistent with the absence of thyroglobulin-producing thyroid tissue. Results obtained with any different assay methods or kits cannot be used interchangeably.Performed By: #### CDP, PFA, CP, GLYHGB #### [facility] [address] [place] [address] Executive Officer: Savage Jacob MDThyroglobulin Ab Qn[IU]/mLNormal0.0-40.0[facility] Medical CenterComment on above:Performed By: #### CDP, PFA, CP, GLYHGB #### [facility] [address] [place] [address] [phone] Executive Officer: Savage Jacob MDThyroglobulin and anti-Thyroglobulin ABon 15-52-7280Gibhtxkhfmiux27.7 ng/mL0 - 63.4 ng/mLUniversity [facility]als [facility], KYThyroglobulin Ab Qn[IU]/mLUniversity Hospitals [facility], KYXR CHEST PORTABLEon 05-08-8682VV CHEST PORTABLE EXAMINATION: ONE XRAY VIEW OF [...] Signed by: Antwon Abbott MD 07/13/19 Final resultNoCommunity Memorial Hospital, [facility], KYUniversity Hospitals [facility], KYAPTTon 85-72-3634oFSD Coag (Bld) [Time]43.4 s High20.5-30.5[facility] Medical CenterComment on above:Performed By: #### CDP, PFA, CP, GLYHGB #### [facility] [address] [place] [address] Executive Officer: Shalom Barahona Coag (Bld) [Time]43.4 [facility], ORInterpretation and review of laboratory resultsAbPomerene Hospital, KYaPTT Coag (Bld) [Time]31.5 sHigh20.5-30.5[facility] Comment on above:Performed By: #### CDP, PFA, CP, GLYHGB #### [facility] [address] [place] [address] Executive Officer: Shalom Barahona Coag (Bld) [Time]31.5 [facility], KYInterpretation and review of laboratory resultsAbPomerene Hospital, KYaPTT Coag (Bld) [Time]56.2 sHigh20.5-30.5[facility], KYComment on above: Performed By: #### CDP, PFA, CP, GLYHGB #### [facility] [address] [place] [address] Executive Officer: Savage Jacob MDInterpretation and review of laboratory results [facility], KYAnion Gap (Calc) POCon 78-95-6874Fijmn gap [Moles/Vol]11 mmol/L7 - 16 mmol/LMOur Lady of [facility] [place], KYArterial Blood Gas, POCon 99-57-1149Pjcwn TestNOT REPORTEDKettering Health [facility]- [place], CWKUJ613.0[facility]- [place], [place] Interpretation and review of laboratory resultsAbnormalKettering Health Behavioral [facility]- [place], ORMode PRVCMercy Health- [place], KYNegative Base Excess, ArtNOT REPORTEDSt. [facility]- [place], ORO2 Device/Flow/%Adult VentilatorMer Health- [place], ORPOC EHK330.2 mmol/LHigh21 - 28 mmol/LMercy Health- [place], ORPO O2 SAT96 %94 - 98 %[facility]- [place], ORPO cJF489.0HighMer Health- [place], [facility] pCO2 TempNOT REPORTEDmm HgMer Health- [place], ORPOC pH7.384[facility]- [place], ORPO pH TempNOT REPORTEDKettering Health Behavioral [facility]- [place], [facility] PO286.5[facility]- [place], [facility] pO2 TempNOT REPORTEDmm HgKettering Health Behavioral Medical Center Health- [place], [place] Positive Base Excess, Yaq2UfwuMchhz Health- [place], ORPt TempNOT REPORTEDKettering Health Behavior[facility]- [place], [facility] Centerle SiteNOT REPORTEDK[facility]tering [facility]- [place], ORTCO2 (calc), Art31 mmol/LHigh22 - 29 mmol/LMhocking valley community hospitaly Health- [place], KYAllen TestNOT REPORTEDKettering Health Behavioral [facility]- [place], IZWVK862.0[facility]- [place], ORInterpretation and review of laboratory resultsAbnormKing's Daughters Medical Center [place]- [place], ORModePRVParkview Health Health- [place], [facility] HOSPITALegative Base Excess, ArtNOT REPORTEDKettering Health Behavioral Medical Center Health- [place], ORO2 Device/Flow/%Adult VentilatorMer Health- [place], [facility] KPA497.2 mmol/LHigh21 - 28 mmol/LMhocking valley community hospitaly Health- [place], [facility] O2 SAT97 %94 - 98 %[facility]- [place], ORPO uRB586.0[facility]- [place], [facility] pCO2 TempNOT REPORTEDmm HgMer Health- [place], [facility] pH7.415[facility]- [place], [facility] pH TempNOT REPORTEDKettering Health Behavioral [facility]- [place], [facility] PO287.2[facility]- [place], [facility] pO2 Temp NOT REPORTEDmm HgKettering Health Behavioral [facility]- [place], ORPositive Base Excess, Qdz2Yzgfq Health- [place], KYPt TempNOT REPORTEDMercy Health- [place], KYSample SiteNOT REPORTEDMercy Health- [place], KYTCO2 (calc), Art30 mmol/LHigh22 - 29 mmol/LMercy Health- [place], KYAllen Test NOT APPLICABLEMercy Health- [place], SBIII642.0[facility]- [place], KYModePRVCMercy Health- [place], KYNegative Base Excess, ArtNOT REPORTEDMer Health- [place], KYO2 Device/Flow/%Adult VentilatorMercy Health- [place], ORPOC UHQ583.2 mmol/LHigh21 - 28 mmol/LMercy [facility]- [place], ORPOC O2 SAT98 %94 - 98 %[facility]- [place], ORPOC pCO2 45.3[facility]- [place], ORPOC pCO2 TempNOT REPORTEDmm HgMercy Health- [place], ORPOC pH 7.418[facility]- [place], ORPOC pH TempNOT REPORTEDMer Health- [place], ORPOC OW8741.0 [facility]- [place], ORPOC pO2 TempNOT REPORTEDmm HgMercy Health- [place], KYPositive Base Excess, Yti0JhskPewar Health- [place], KYPt TempNOT REPORTEDMer Health- [place], [place] Sample SiteArterial LineMer Health- [place], KYTCO2 (calc), Art31 mmol/LHigh22 - 29 mmol/LMercy [facility]- [place], KYB12/Folate Panelon 67-55-6059Ckyhchemf (Vitamin B12) [Mass/Vol]1313 pg/bAOali301-5409PgevoUniversity Hospitals Beachwood Medical CenterComment on above:Performed By: #### CDP, PFA, CP, GLYHGB #### [facility] [address] [place], [place] [phone] Executive Officer: Francois Barahona Acid7.0 ng/mLNormal>4.8[facility] Beachwood Medical CenterComment on above:Performed By: #### CDP, PFA, CP, GLYHGB #### [facility] [address] [place], [place] [phone] Executive Officer: Katie Barahona Metabolic Panelon 75-25-9092Qbcit gap [Moles/Vol]13 mmol/L9 - 17 mmol/LMMemorial Health System- [place], KYBun/Cre RatioNOT REPORTED [facility]- [place], KYCalcium [Mass/Vol]8.3 mg/dLLow8.6 - 10.4 mg/dLUniversity Hospitals [facility], KYChloride [Moles/Vol]107 mmol/L98 - 107 mmol/LMMemorial Health System- [place], KYCO2 [Moles/Vol]27 mmol/L20 - 31 mmol/LMWVUMedicine Harrison Community Hospital [place], KYCreatinine [Mass/Vol]1.2 mg/dLHigh0.5 - 0.9 mg/dLUniversity Hospitals [facility], KYGFR Mqxydibk84 mL/minLow>60 [facility] [place], KYGFR CommentUniversity Hospitals [facility] Center [place], KYGFR Non- Eskquuck36 mL/minLow>60[facility] [place], KYGFR StagingNOT REPORTEDUniversity [facility]als [facility], [place] Glucose [Mass/Vol]133 mg/tJDscg23 - 99 mg/dLUniversity Hospitals [facility], KYInterpretation and review of laboratory resultsAbnormalUniversity Hospitals [facility] [place], KYPotassium [Moles/Vol]3.4 mmol/LLow3.7 - 5.3 mmol/LMMemorial Health System- [place], KYSodium [Moles/Vol] 147 mmol/RReyh395 - 144 mmol/WVUMedicine [facility] [place], KYUrea nitrogen [Mass/Vol]28 mg/dLHigh8 - 23 mg/dLUniversity Hospitals [facility], KYBasic Metabolic Profon 07-12-2019 (cont.)[facility] - ColumbusComment on above:Result Comment: Average GFR for 70 or more years old: 75 mL/min/1.73sq m Chronic Kidney Disease: <60 mL/min/1.73sq m Kidney failure: <15 mL/min/1.73sq m eGFR calculated using average adult body mass. Additional eGFR calculator available at: http://[email or web address] [email or web address]_crcl_2012.htmPerformed By: #### CDP, PFA, CP, GLYHGB #### [facility] [id number] Executive Officer: Savage Madoff, MDAnion gap [Moles/Vol]13 mmol/LNormal9-17[facility] Beachwood Medical CenterComment on above:Performed By: #### CDP, PFA, CP, GLYHGB #### [facility] [address] [place] [address] Executive Officer: Savage Jacob MDCalcium [Mass/Vol]8.3 mg/dLLow8.6-10.4[facility] Beachwood Medical CenterComment on above:Performed By: #### CDP, PFA, CP, GLYHGB #### [facility] [address] [place] [address] Executive Officer: Savage Jacob MDChloride [Moles/Vol]107 mmol/XWfktvf24-610OnjnaUniversity Hospitals Beachwood Medical CenterComment on above:Performed By: #### CDP, PFA, CP, GLYHGB #### [facility] [address] [place] [address] Executive Officer: Savage Jacob MDCO2 [Moles/Vol]27 mmol/MFeggdt15-55EloxtUniversity Hospitals Beachwood Medical CenterComment on above:Performed By: #### CDP, PFA, CP, GLYHGB #### [facility] [address] [place] [address] Executive Officer: Savage Jacob MDCreatinine [Mass/Vol]1.20 mg/dLHigh0.50-0.90 [facility] CenterComment on above:Performed By: #### CDP, PFA, CP, GLYHGB #### [facility] [address] [place] [address] Executive Officer: SALLY Barahona, Amer54 mL/minLow>60[facility] Medical CenterComment on above:Performed By: #### CDP, PFA, CP, GLYHGB #### [facility] [address] [place] [address] Executive Officer: SALLY Barahona,non Amer44 mL/minLow>60[facility]wood Medical CenterComment on above:Performed By: #### CDP, PFA, CP, GLYHGB #### [facility] [address] [place] [address] Executive Officer: Savage Jacob MDGlucose [Mass/Vol]133 mg/uXAvsh73-58VjxizEmanate Health/Foothill Presbyterian HospitalComment on above:Performed By: #### CDP, PFA, CP, GLYHGB #### [facility] [address] [place] [address] Executive Officer: HALEY Barahonaotassium [Moles/Vol]3.4 mmol/LLow3.7-5.3MEmanate Health/Foothill Presbyterian HospitalComment on above:Performed By: #### CDP, PFA, CP, GLYHGB #### [place] [address] Executive Officer: ZANA Barahonaodium [Moles/Vol]147 mmol/ZWheo294-703DnccdUniversity Hospitals Beachwood Medical CenterComment on above:Performed By: #### CDP, PFA, CP, GLYHGB #### [facility] [address] [place] [address] Executive Officer: Savage Jacob MDUrea nitrogen [Mass/Vol]28 mg/dLHigh8-23[facility] Beachwood Medical CenterComment on above:Performed By: #### CDP, PFA, CP, GLYHGB #### [place] [address] Executive Officer: Savage Jacob MDBUN/CRE RatioNOT REPORTEDNormal9-20[facility] Beachwood Medical CenterComment on above:Performed By: #### CDP, PFA, CP, GLYHGB #### [facility] [address] [place] [address] Executive Officer: ZANA Barahonataging:NOT REPORTEDNormalUniversity Hospitals Beachwood Medical CenterComment on above:Performed By: #### CDP, PFA, CP, GLYHGB #### [facility] [address] [place] [address] Executive Officer: CASEY BarahonaALCIUM, IONIC (POC)on 78-67-7205GTW Ionized Calcium1.17 mmol/L1.15 - 1.33 mmol/LMercy [facility], KYCBCon 07-12-2019 Erythrocyte distribution width (RBC) [Ratio]15.6 %High11.8-14.4[facility] Beachwood Medical CenterComment on above:Performed By: #### CDP, PFA, CP, GLYHGB #### [facility] [address] [place] [address] Executive Officer: Savage Jacob MDHematocrit (Bld) [Volume fraction]25.4 %Low 36.3-47.1MEmanate Health/Foothill Presbyterian HospitalComment on above:Performed By: #### CDP, PFA, CP, GLYHGB #### [facility] [address] [place] [address] Executive Officer: Savage Jacob MDHemoglobin (Bld) [Mass/Vol]7.9 g/dLLow11.9-15.1 [facility] Medical CenterComment on above:Performed By: #### CDP, PFA, CP, GLYHGB #### [facility] [address] [place] [address] Executive Officer: ALISSA BarahonaCH (RBC) [Entitic mass]28.6 qvXafnxc88.2-33.5 [facility] Medical CenterComment on above:Performed By: #### CDP, PFA, CP, GLYHGB #### [facility] [address] [place] [address] Executive Officer: JAIME BarahonaC (RBC) [Mass/Vol]31.1 g/dCStoqts81.4-34.8 [facility] CenterComment on above:Performed By: #### CDP, PFA, CP, GLYHGB #### [address] [address] Executive Officer: ALISSA BarahonaCV (RBC) [Entitic vol]92.0 sDWrzjwk18.6-102.9 [facility] Medical CenterComment on above:Performed By: #### CDP, PFA, CP, GLYHGB #### [address] [address] Executive Officer: ILANA Barahona Automated1.4 per 100 WBCHigh0.0[facility] Beachwood Medical CenterComment on above:Performed By: #### CDP, PFA, CP, GLYHGB #### [address] [address] Executive Officer: Daneil Barahona mean volume (Bld) [Entitic vol]9.6 fL Normal8.1-13.5[facility] Beachwood Medical CenterComment on above:Performed By: #### CDP, PFA, CP, GLYHGB #### [address] [address] Executive Officer: Taylor Barahonatejimbo (Bld) [#/Vol]263 10*3/cXGrzdjd627-209 [facility] Medical CenterComment on above:Performed By: #### CDP, PFA, CP, GLYHGB #### [facility] [address] [place] [address] Executive Officer: ISABELLE BarahonaBC (Bld) [#/Vol]2.76 10*6/uLLow3.95-5.11[facility] Medical CenterComment on above:Performed By: #### CDP, PFA, CP, GLYHGB #### [facility] [address] [place] [address] Executive Officer: PETR Barahona (Bld) [#/Vol]8.4 10*3/uLNormal3.5-11.3[facility] Hospital Of West CovinaComment on above:Performed By: #### CDP, PFA, CP, GLYHGB #### [facility] [address] [place] [address] Executive Officer: Savage Jacob MDErythrocyte distribution width (RBC) [Ratio]15.6 %High11.8 - 14.4 %[facility], ORHematocrit (Bld) [Volume fraction]25.4 % Low36.3 - 47.1 %[facility], JERRYHemoglobin (Bld) [Mass/Vol]7.9 g/dLLow11.9 - 15.1 g/dLUniversity Hospitals Geneva Medical Center, ORInterpretation and review of laboratory results AbnormalUniversity Hospitals Geneva Medical Center, [facility] (RBC) [Entitic mass]28.6 pg25.2 - 33.5 pgUniversity Hospitals Geneva Medical Center, ORMCHC (RBC) [Mass/Vol]31.1 g/dL28.4 - 34.8 g/dLUniversity Hospitals Geneva Medical Center, [place] MCV (RBC) [Entitic vol]92.0 fL82.6 - 102.9 fLUniversity Hospitals Geneva Medical Center, ORPlatelet mean volume (Bld) [Entitic vol]9.6 fL8.1 - 13.5 fLUniversity Hospitals Geneva Medical Center, ORPlatelets (Bld) [#/Vol]263 10*3/[facility]- [place], KYRBC (Bld) [#/Vol]2.76 10*6/uLLow3.95 - 5.11 m/uLUniversity Hospitals Geneva Medical Center, JERRYWBC (Bld) [#/Vol]1.4 10*3/uLHigh0.0 per 100 WBC [facility], ORWBC (Bld) [#/Vol]8.4 10*3/[facility]- [place], ORCHLORIDE (POC)on 05-18-8182NBV Thoouldc322 mmol/L98 - 107 mmol/LMMemorial Health System- [place], [place] CORTISOLon 89-14-8132Dcvuejva40.6 ug/dL2.7 - 18.4 ug/dLUniversity Hospitals Geneva Medical Center, [place] Cortisol Collection InfoNOT REPORTEDUniversity Hospitals Geneva Medical Center, KYCortisolon 07-12-2019 Jfkclysy84.6 ug/dLNormal2.7-18.4[facility] Beachwood Medical CenterComment on above:Result Comment: Cortisol Reference Range: AM 6.0-18.4 PM 2.7-10.5Performed By: #### CDP, PFA, CP, GLYHGB #### [facility] [address] [place] [address] [phone] Executive Officer: CASEY Barahonaollection Info.NOT REPORTEDNormalUniversity Hospitals Beachwood Medical CenterComment on above:Performed By: #### CDP, PFA, CP, GLYHGB #### [facility] [address] [place] [address] Executive Officer: Hans Barahonaatinine W/GFR Point of Careon 21-07-1701JMJ Nbullni68 mL/minLow>60[facility], KYGFR CommentUniversity Hospitals Geneva Medical Center, KYGFR Non- Ljqibmuy69 mL/minLow>60[facility], KYPOC Creatinine1.27 mg/dL High0.51 - 1.19 mg/dLUniversity Hospitals Geneva Medical Center, KYEEG video monitoringon 04-02-5112WqbqnUniversity Hospitals Geneva Medical Center, ORElectrolyteson 95-80-4730Xtibp gap [Moles/Vol]11 mmol/LNormal9-17 [facility] Medical CenterComment on above:Performed By: #### CDP, PFA, CP, GLYHGB #### [facility] [address] [place] [address] Executive Officer: CASEY Barahonahloride [Moles/Vol]110 mmol/UTgkm92-727CzgatUniversity Hospitals Beachwood Medical CenterComment on above:Performed By: #### CDP, PFA, CP, GLYHGB #### [facility] [facility] [place] [address] Executive Officer: Savage Jacob MDCO2 [Moles/Vol]26 mmol/QBrjqbp10-56ZkheoUniversity Hospitals Beachwood Medical CenterComment on above:Performed By: #### CDP, PFA, CP, GLYHGB #### [facility] [address] [place] [address] Executive Officer: Savage Jacob MDPotassium [Moles/Vol]4.0 mmol/LNormal3.7-5.3 [facility] Medical CenterComment on above:Performed By: #### CDP, PFA, CP, GLYHGB #### [facility] [address] [place] [address] [phone] Executive Officer: Savage Jacob MDSodium [Moles/Vol]147 mmol/KGzqm468-962QkwfdUniversity Hospitals Beachwood Medical CenterComment on above:Performed By: #### CDP, PFA, CP, GLYHGB #### [facility] [address] [place] [address] Executive Officer: Savage Jacob MDHemoglobin and hematocrit, bloodon 57-95-3022TWZ Lrsqsmccog89 %Low36 - 46 %[facility], ORPO Hemoglobin8.4 g/dLLow12 - 16 g/dLUniversity Hospitals Geneva Medical Center, KYLactic Acid, POCon 18-54-4209XKH Lactic Acid0.59 mmol/L 0.56 - 1.39 mmol/[facility], KYMAGNESIUM, IONIZEDon 15-37-9010Luaxzfksi, Ionized0.52 mmol/L0.45 - 0.6 mmol/[facility], KYMRA HEAD WO CONTRASTon 43-80-2483BUP HEAD WO CONTRASTEXAMINATION: MRI OF THE BRAIN WITHOUT CONTRAST; MRA OF THE HEAD WITHOUT CONTRAST; MRA OF THE NECK WITHOUT CONTRAST 07/12/2019 12:04 pm TECHNIQUE: Multiplanar multisequence MRI of the brain was performed without the administration of intravenous contrast.; MRA of the head was performed utilizing liej-or-oxgguf imaging with MIP images. No intravenous contrast [...] of the P2 segment of the right [employer]ESS [employer]Y. There are additional 80% focal stenosis along the P2 segments of the bilateral outbound supervisor. The vertebral and basilar arteries appear unremarkable. [...] of the P2 segment of the right [employer]Y. Additional 80% focal stenosis along the P2 segments of the bilateral outbound supervisor. 40% stenosis at the origins of the bilateral internal carotid arteries. The results were sent to radiology results communication. Interpreted by: Red Sheets MD Signed by: Red Sheets MD 07/12/19 Final resultNormalMercy Doctors Hospital Of West CovinaMRA NECK WO CONTRASTon 96-67-1737AEV NECK WO CONTRASTEXAMINATION: MRI OF THE BRAIN WITHOUT CONTRAST; MRA OF THE HEAD WITHOUT CONTRAST; MRA OF THE NECK WITHOUT CONTRAST 07/12/2019 12:04 pm TECHNIQUE: Multiplanar multisequence MRI of the brain was performed without the administration of intravenous contrast.; MRA of the head was performed utilizing kjru-vw-tgkong imaging with MIP images. No intravenous contrast [...] of the P2 segment of the right [employer]. There are additional 80% focal stenosis along the P2 segments of the bilateral outbound supervisor. The vertebral and basilar arteries appear unremarkable. [...] of the P2 segment of the right [employer]. Additional 80% focal stenosis along the P2 segments of the bilateral outbound supervisor. 40% stenosis at the origins of the bilateral internal carotid arteries. The results were sent to radiology results communication. Interpreted by: Red Sheets MD Signed by: Red Sheets MD 07/12/19 Final resultNormalMercy Doctors Hospital Of West CovinaMRI BRAIN WO CONTRASTon 58-34-4271MHL BRAIN WO CONTRASTEXAMINATION: MRI OF THE BRAIN WITHOUT CONTRAST; MRA OF THE HEAD WITHOUT CONTRAST; MRA OF THE NECK WITHOUT CONTRAST 07/12/2019 12:04 pm TECHNIQUE: Multiplanar multisequence MRI of the brain was performed without the administration of intravenous contrast.; MRA of the head was performed utilizing olst-ya-ttbfny imaging with MIP images. No intravenous contrast [...] of the P2 segment of the right [employer]. There are additional 80% focal stenosis along the P2 segments of the bilateral outbound supervisor. The vertebral and basilar arteries appear unremarkable. [...] of the P2 segment of the right [employer]Y. Additional 80% focal stenosis along the P2 segments of the bilateral outbound supervisor. 40% stenosis at the origins of the bilateral internal carotid arteries. The results were sent to radiology results communication. Interpreted by: Red Sheets MD Signed by: Red Sheets MD 07/12/19 Final resultNormalUniversity Hospitals Beachwood Medical CenterMagnesiumon 07-12-2019 Magnesium [Mass/Vol]2.0 mg/dLNormal1.6-2.6[facility] Comment on above:Performed By: #### CDP, PFA, CP, GLYHGB #### [facility] [address] [place] [address] Executive Officer: Miles Barahonagnesium [Mass/Vol]2.0 mg/dL1.6 - 2.6 mg/dL [facility], ORMagnesium, Ionizedon 81-18-5227Wmqdbsmtd [Mass/Vol]0.52 mmol/LNormal0.45-0.60[facility] Medical CenterComment on above:Performed By: #### CDP, PFA, CP, GLYHGB #### [facility] [address] [place] [address] Executive Officer: Savage Jacob MDOtheron 24-49-6841MbytaUniversity Hospitals Geneva Medical Center, KYUniversity Hospitals Geneva Medical Center, KYUniversity Hospitals [facility] Medical Center, KYInterpretation and review of laboratory resultsAbnormLakeHealth TriPoint [facility], [facility] Glucose Fingerstickon 07-12-2019 Interpretation and review of laboratory resultsAbnormLakeHealth TriPoint Medical Center, [facility] Gdhiyek759 mg/kYGnbu98 - 105 mg/dLUniversity Hospitals Geneva Medical Center, KYInterpretation and review of laboratory resultsAbnormLakeHealth TriPoint [facility], [facility] Cbxmewg474 mg/vSYomh50 - 105 mg/dLUniversity Hospitals Geneva Medical Center, ORPOC Qlvcorn998 mg/dL65 - 105 mg/dLUniversity Hospitals Geneva Medical Center, ORPOCT Glucoseon 97-97-7666WAA Gfzuqmo777 mg/eKHrod75 - 100 mg/dLUniversity Hospitals Geneva Medical Center, KYPOTASSIUM (POC)on 65-19-0980VRX Potassium3.3 mmol/LLow3.5 - 4.5 mmol/L [facility], [facility] 25-79-1590RNE Coag (PPP) [Relative time]1.1 {INR}Normal [place], KYComment on above:Result Comment: Therapeutic Range: Moderate Anticoagulant Intensity: INR = 2.0-3.0 High Anticoagulant Intensity: INR = 2.5-3.5Performed By: #### CDP, PFA, CP, GLYHGB #### [facility] [address] [place] [address] Executive Officer: RIGO Barahona Coag (PPP) [Time]11.4 sNormal9.0-12.0[place], KYComascension borgess allegan hospital on above:Performed By: #### CDP, PFA, CP, GLYHGB #### [facility] [address] [place] [address] Executive Officer: Pramod Barahonahoyamini 69-37-3758Rustyrzwy [Mass/Vol]2.6 mg/dL2.6 - 4.5 mg/dLUniversity Hospitals Geneva Medical Center, KYPhosphorus, Inorg.on 07-12-2019 Phosphorus, Inorg.2.6 mg/dLNormal2.6-4.5[facility] Medical CenterComment on above:Performed By: #### CDP, PFA, CP, GLYHGB #### [facility] [address] [place] [address] [phone] Executive Officer: RAMOS Barahona (POC)on 37-93-7522MCN Jjcupa405 mmol/L138 - 146 mmol/LMercy Health- [place], KYT4, Freeon 93-56-7839Utafyagvl, Free1.13 ng/dL 0.93 - 1.7 ng/dLUniversity Hospitals Geneva Medical Center, KYTSH w/reflex to FT4on 21-47-5218JPE Qn8.82 m[IU]/LHigh0.30-5.00[facility] Medical CenterComment on above:Performed By: #### CDP, PFA, CP, GLYHGB #### [facility] [address] [place] [address] [phone] Executive Officer: MATTY Barahona with Reflexon 60-28-2618Cyjlmjhqceaepd and review of laboratory resultsAbnormalUniversity Hospitals Geneva Medical Center, KYTSH Qn8.82 m[IU]/LHigh [facility], KYThyroxine, Freeon 84-27-6180Uxjyxqont, Free1.13 ng/dLNormal 0.93-1.70[facility] Medical CenterComment on above:Performed By: #### CDP, PFA, CP, GLYHGB #### [facility] [address] [place] [address] [phone] Executive Officer: Savage Jacob MDVITAMIN B12 & FOLATEon 59-14-0782Fgxisixjg (Vitamin B12) [Mass/Vol]1313 pg/mNRoud295 - 1245 pg/mLUniversity Hospitals Geneva [facility] Center, KYFolate 7 ng/mL>4.8[facility], KYInterpretation and review of laboratory results AbnormalUniversity Hospitals Geneva Medical Center, KYXR CHEST PORTABLEon 76-70-7469OP CHEST PORTABLE EXAMINATION: ONE XRAY VIEW OF [...] Signed by: Red Sheets MD 07/12/19 Final resultNoCommunity [facility], [facility], [facility], ORAPTAbrazo Arrowhead Campus 73-88-3585kPHM Coag (Bld) [Time]57.0 s High20.5-30.5[facility] Medical CenterComment on above:Performed By: #### CDP, PFA, CP, GLYHGB #### [facility] [address] [place] [address] Executive Officer: Shalom Barahonag (Bld) [Time]57.0 [facility], KYInterpretation and review of laboratory resultsAbTopeka, KYaPTT Coag (Bld) [Time]51.5 [facility]0.5-30.5[facility] Comment on above:Performed By: #### CDP, PFA, CP, GLYHGB #### [facility] [address] [place] [address] Executive Officer: Shalom Barahona (Bld) [Time]51.5 [facility], KYInterpretation and review of laboratory resultsAbTopeka, KYaPTT Coag (Bld) [Time]55.6 sHigh20.5-30.5[facility] Comment on above:Performed By: #### CDP, PFA, CP, GLYHGB #### [facility] [address] [place] [address] Executive Officer: Shalom Barahona (Erlinda) [Time]55.6 [facility]- [place], ORInterpretation and review of laboratory resultsAbnormalMer Health- [place], KYAnion Gap (Calc) POCon 64-49-5261Zdwbh gap [Moles/Vol]10 mmol/L7 - 16 mmol/L [facility]- [place], KYAnion gap [Moles/Vol]10 mmol/L7 - [...] Health- [place], [place] Arterial Blood Gas, POCon 93-41-9113Oprro TestNOT REPORTEDMer Health- [place], [place] TJP229.0[facility]- [place], KYModeNOT REPORTEDMercy Health- [place], KYNegative Base Excess, ArtNOT REPORTEDMer Health- [place], KYO2 Device/Flow/%Adult VentilatorMer Health- [place], ORPOC DTN325.7 mmol/LHigh21 - 28 mmol/LMercy Health- [place], ORPOC O2 SAT98 %94 - 98 %[facility]- [place], ORPO yOP037.9[facility]- [place], ORPO pCO2 TempNOT REPORTEDmm HgMer Health- [place], ORPOC pH7.448[facility]- [place], [place]POC pH TempNOT REPORTEDMercy Health- [place], ORPO PO299.4[facility]- [place], [place]POC pO2 Temp NOT REPORTEDmm HgMercy Health- [place], KYPositive Base Excess, Qci4CgnxEztrt Health- [place], KYPt TempNOT REPORTEDMercy Health- [place], [facility] SiteArterial LineMercy Health- [place], ORTCO2 (calc), Art31 mmol/LHigh22 - 29 mmol/LMercy Health- [place], [place] Graham TestNOT REPORTEDMercy Health- [place], PCAOA601.0[facility]- [place], KYModeNOT REPORTEDMercy Health- [place], KYNegative Base Excess, ArtNOT REPORTEDMercy Health- [place], KYO2 Device/Flow/%Adult VentilatorMercy Health- [place], ORPOC TSS028.4 mmol/L High21 - 28 mmol/LMercy Health- [place], ORPO O2 SAT99 %High94 - 98 %[facility] [place], ORPO zCL659.7[facility]- [place], [facility] pCO2 TempNOT REPORTEDmm HgMercy Health- [place], ORPOC pH7.446[facility]- [place], [place]POC pH TempNOT REPORTEDMercy Health- [place], ORPO HB7987.2HighMercy Health- [place], [facility] pO2 TempNOT REPORTEDmm Hg [facility]- [place], KYPositive Base Excess, Nqr7EigrHvapt Health- [place], KYPt TempNOT REPORTEDMer Health- [place], [facility] SiteArterial LineMer Health- [place], KYTCO2 (calc), Art31 mmol/LHigh22 - 29 mmol/LMercy Health- [place], KYAllen TestNOT REPORTED [facility] [place], OZRLR425.0[facility]- [place], KYModeNOT REPORTEDMercy Health- [place], KYNegative Base Excess, ArtNOT REPORTEDMercy Health- [place], ORO2 Device/Flow/% Adult VentilatorMer Health- [place], [facility] AYY001.6 mmol/LHigh21 - 28 mmol/LMercy Health- [place], [facility] O2 PHU092 %High94 - 98 %[facility]- [place], ORPO lBD400.2[facility]- [place], ORPO pCO2 TempNOT REPORTEDmm HgMercy Health- [place], [facility] pH7.455High [facility]- [place], ORPO pH TempNOT REPORTEDMercy Health- [place], [facility] UC4851.9High [facility]- [place], ORPOC pO2 TempNOT REPORTEDmm HgMercy Health- [place], ORPositive Base Excess, Rgi4UvjuLlhuw Health- [place], KYPt TempNOT REPORTEDMercy Health- [place], [place] Sample SiteArterial LineMer Health- [place], ORTCO2 (calc), Art31 mmol/LHigh22 - 29 mmol/LMercy Health- [place], KYAllen TestNOT REPORTEDMercy Health- [place], MNYLM581.0 [facility]- [place], ORModeNOT REPORTEDMercy Health- [place], KYNegative Base Excess, ArtNOT REPORTEDMer Health- [place], ORO2 Device/Flow/%Adult VentilatorMercy Health- [place], [facility] NXX682.3 mmol/LHigh21 - 28 mmol/LMercy Health- [place], [facility] O2 CHP457 % High94 - 98 %[facility] [place], [facility] lKM804.8[facility]- [place], [facility] pCO2 Temp NOT REPORTEDmm HgMercy Health- [place], [facility] pH7.438[facility]- [place], [facility] pH Temp NOT REPORTEDMercy Health- [place], [facility] UQ2139.6HighMer Health- [place], [facility] pO2 Temp NOT REPORTEDmm HgMercy Health- [place], ORPositive Base Excess, Msl0NzikQqkcf Health- [place], KYPt TempNOT REPORTEDMer Health- [place], [facility] SiteArterial LineKettering Health [facility] Health- [place], ORTCO2 (calc), Art32 mmol/LHigh22 - 29 mmol/LMhocking valley community hospitaly Health- [place], [place] Graham TestNOT REPORTEDMercy Health- [place], DAMLA208.0[facility]- [place], ORModeNOT REPORTEDMercy Health- [place], KYNegative Base Excess, ArtNOT REPORTEDMer Health- [place], ORO2 Device/Flow/%Adult VentilatorMer Health- [place], [facility] AZE494.5 mmol/L High21 - 28 mmol/LMercy Health- [place], [facility] O2 SAT98 %94 - 98 %[facility] [place], [facility] yDW329.6[facility]- [place], [facility] pCO2 TempNOT REPORTEDmm HgMercy Health- [place], [facility] pH7.460HighMercy Health- [place], KYPOC pH TempNOT REPORTEDMercy Health- [place], [facility] PO291.1[facility]- [place], [facility] pO2 TempNOT REPORTEDmm HgMercy Health- [place], ORPositive Base Excess, Eft3PhwvZlzsv Health- [place], KYPt TempNOT REPORTEDMercy Health- [place], ORSample SiteArterial LineMercy Health- [place], ORTCO2 (calc), Art31 mmol/LHigh22 - 29 mmol/LMercy [facility]- [place], ORAllen TestNOT REPORTEDMercy Health- [place], [id number]- [place], KYModeNOT REPORTEDMercy Health- [place], KYNegative Base Excess, ArtNOT REPORTEDMer Health- [place], ORO2 Device/Flow/%Adult Ventilator [facility]- [place], ORPOC FMB896.7 mmol/LHigh21 - 28 mmol/LMhocking valley community hospitaly Health- [place], ORPO O2 SAT86 %Low94 - 98 %[facility]- [place], [facility] [facility] eOQ701.7LowMer [facility]- [place], [place] P[place] pCO2 TempNOT REPORTEDmm HgMercy Health- [place], [facility] pH7.566HighMercy Health- [place], [facility] pH TempNOT REPORTEDMer Health- [place], [facility] PO243.2Critically lowMercy Health- [place], [facility] pO2 TempNOT REPORTEDmm HgMercy Health- [place], ORPositive Base Excess, Alx1UgdoGbzrp Health- [place], KYPt TempNOT REPORTEDMer Health- [place], [place] Sample SiteArterial LineKettering Health Behavioral Medical Center Health- [place], ORTCO2 (calc), Art30 mmol/LHigh22 - 29 mmol/LMercy Health- [place], ORAllen TestNOT APPLICABLEMer Health- [place], [id number] [facility]- [place], ORModePRVCMercy Health- [place], KYNegative Base Excess, ArtNOT REPORTEDMer Health- [place], ORO2 Device/Flow/%Adult VentilatorMer Health- [place], [place] PRQ888.6 mmol/LHigh21 - 28 mmol/LMhocking valley community hospitaly [facility]- [place], [facility] O2 SAT86 %Low94 - 98 %[facility], [place]POC pMH124.3[facility], [facility] pCO2 TempNOT REPORTEDmm HgMercy Health- [place], [facility] pH7.452HighMercy Health- [place], [facility] pH Temp NOT REPORTEDMercy Health- [place], [facility] PO249.8Critically lowMercy Health- [place], [facility] pO2 TempNOT REPORTEDmm HgMercy Health- [place], ORPositive Base Excess, Cgn0Dxsd [facility]- [place], KYPt TempNOT REPORTEDMercy Health- [place], [facility]le SiteArterial LineMercy [facility]- [place], ORTCO2 (calc), Art31 mmol/LHigh22 - 29 mmol/LMercy Health- [place], KYAllen TestPositiveMercy Health- [place], MIDVZ6809.0[facility]- [place], ORMode PRVCMercy Health- [place], KYNegative Base Excess, ArtNOT REPORTEDMercy Health- [place], ORO2 Device/Flow/%Adult VentilatorMercy Health- [place], [facility] QFJ824.2 mmol/LHigh21 - 28 mmol/LMercy [facility]- [place], [facility] O2 SAT86 %Low94 - 98 %[facility] [place], [facility] fZL044.0[facility]- [place], [facility] pCO2 TempNOT REPORTEDmm HgMercy Health- [place], [place] pH7.435[facility]- [place], [facility] pH TempNOT REPORTEDMer Health- [place], [facility] PO249.7Critically lowMercy Health- [place], [facility] pO2 TempNOT REPORTEDmm HgMercy Health- [place], ORPositive Base Excess, Joq4CadhBgssg Health- [place], KYPt TempNOT REPORTEDMercy [facility]- [place], [facility] SiteArterial LineMer Health- [place], ORTCO2 (calc), Art32 mmol/LHigh22 - 29 mmol/LMercy [facility]- [place], ORBASIC METABOLIC PANEL on 50-24-9808Goexq gap [Moles/Vol]15 mmol/L9 - 17 mmol/LMercy [facility]- [place], [place] Bun/Cre RatioNOT REPORTEDMercy Health- [place], ORCalcium [Mass/Vol]8.3 mg/dLLow8.6 - 10.4 mg/dLMercy Health- [place], KYChloride [Moles/Vol]106 mmol/L98 - 107 mmol/L [facility] [place], KYCO2 [Moles/Vol]26 mmol/L20 - 31 mmol/LMercy [facility]- [place], [place] Creatinine [Mass/Vol]1.09 mg/dLHigh0.5 - 0.9 mg/dLMercy Health- [place], KYGFR >60>60 mL/minMercy Health- [place], KYGFR CommentMercy Health- [place], [place] GFR Non- Zjjdicsm73 mL/minLow>60[facility]- [place], KYGFR StagingNOT REPORTEDMercy Health- [place], KYGlucose [Mass/Vol]166 mg/aQGtsk62 - 99 mg/dLMercy Health- [place], KYInterpretation and review of laboratory resultsAbnormalMercy Health- [place], KYPotassium [Moles/Vol]3.5 mmol/LLow3.7 - 5.3 mmol/LMer[facility]- [place], KYSodium [Moles/Vol]147 mmol/JOuwp033 - 144 mmol/LMercy [facility]- [place], KYUrea nitrogen [Mass/Vol]30 mg/dLHigh8 - 23 mg/dLMercy Health- [place], KYBasic Metabolic Panelon 57-70-3023Obyeg gap [Moles/Vol]17 mmol/L9 - 17 mmol/LMercy [facility]- [place], KYBun/Cre RatioNOT REPORTEDMercy Health- [place], KYCalcium [Mass/Vol]8.7 mg/dL8.6 - 10.4 mg/dLMercy Health- [place], KYChloride [Moles/Vol]102 mmol/L98 - 107 mmol/LMercy [facility]- [place], KYCO2 [Moles/Vol]26 mmol/L20 - 31 mmol/LMercy [facility]- [place], [place] Creatinine [Mass/Vol]1.29 mg/dLHigh0.5 - 0.9 mg/dLMercy Health- [place], KYGFR Ttvpmmgc33 mL/minLow>60[facility]- [place], KYGFR CommentMercy Health- [place], KYGFR Non- Fugmqmoq88 mL/minLow>60[facility]- [place], KYGFR StagingNOT REPORTEDMercy Health- [place], KYGlucose [Mass/Vol]287 mg/mOEfep66 - 99 mg/dLMercy Health- [place], KYPotassium [Moles/Vol]3.2 mmol/LLow3.7 - 5.3 mmol/LMer[facility]- [place], KYSodium [Moles/Vol]145 mmol/KBdoa733 - 144 mmol/LMOur Lady of [facility] - [place], KYUrea nitrogen [Mass/Vol]32 mg/dLHigh8 - 23 mg/dLUniversity [facility]als [facility], KYBasic Metabolic Profon 07-11-2019(cont.)NormalUniversity Hospitals Beachwood Medical CenterComment on above: Result Comment: Average GFR for 70 or more years old: 75 mL/min/1.73sq m Chronic Kidney Disease: <60 mL/min/1.73sq m Kidney failure: <15 mL/min/1.73sq m eGFR calculated using average adult body mass. Additional eGFR calculator available at: http://www.Nodeable/multiple_crcl_2012.htmPerformed By: #### CDP, PFA, CP, GLYHGB #### [facility] [address] [place] [address] [phone] Executive Officer: Savage Jacob MDAnion gap [Moles/Vol]15 mmol/LNormal9-17University [facility] Beachwood Medical CenterComment on above:Performed By: #### CDP, PFA, CP, GLYHGB #### [facility] [address] [place] [address] Executive Officer: Savage Jacob MDCalcium [Mass/Vol]8.3 mg/dLLow8.6-10.4[facility] Beachwood Medical CenterComment on above:Performed By: #### CDP, PFA, CP, GLYHGB #### [facility] [address] [place] [address] Executive Officer: Savage Jacob MDChloride [Moles/Vol]106 mmol/OStxlnc73-735ZikbzUniversity Hospitals Beachwood Medical CenterComment on above:Performed By: #### CDP, PFA, CP, GLYHGB #### [facility] [address] [place] [address] [phone] Executive Officer: Savage Jacob MDCO2 [Moles/Vol]26 mmol/WNaywhw31-91ArjawUniversity Hospitals Beachwood Medical CenterComment on above:Performed By: #### CDP, PFA, CP, GLYHGB #### [facility] [address] [place] [address] Executive Officer: Savage Jacob MDCreatinine [Mass/Vol]1.09 mg/dLHigh0.50-0.90 [facility] Beachwood Medical CenterComment on above:Performed By: #### CDP, PFA, CP, GLYHGB #### [place] [address] Executive Officer: Savage Jacob MDGFR, Amer>60Normal>60[facility] Beachwood Medical CenterComment on above:Performed By: #### CDP, PFA, CP, GLYHGB #### [place] [address] Executive Officer: Savage Jacob MDGFR,non Amer50 mL/minLow>60[facility] Medical CenterComment on above:Performed By: #### CDP, PFA, CP, GLYHGB #### [place] [address] Executive Officer: Savage Jacob MDGlucose [Mass/Vol]166 mg/yQMzem93-44Gwyol Doctors Hospital Of West CovinaComment on above:Performed By: #### CDP, PFA, CP, GLYHGB #### [place] [address] Executive Officer: Savage Jacob MDPotassium [Moles/Vol]3.5 mmol/LLow3.7-5.3Mhocking valley community hospitaly [facility] Of West CovinaComment on above:Performed By: #### CDP, PFA, CP, GLYHGB #### [facility] [address] [place] [address] Executive Officer: Savage Jacob MDSodium [Moles/Vol]147 mmol/UCgof523-120QamwlUniversity Hospitals Beachwood Medical CenterComment on above:Performed By: #### CDP, PFA, CP, GLYHGB #### [facility] [address] [place] [address] Executive Officer: Savage Jacob MDUrea nitrogen [Mass/Vol]30 mg/dLHigh8-23[facility] Medical CenterComment on above:Performed By: #### CDP, PFA, CP, GLYHGB #### [facility] [address] [place] [address] Executive Officer: Savage Jacob MDBUN/CRE RatioNOT REPORTEDNormal9-20[facility] Medical CenterComment on above:Performed By: #### CDP, PFA, CP, GLYHGB #### [facility] [address] [place] [address] Executive Officer: ZANA Barahonataging:NOT REPORTEDNoMercy Health West HospitalComment on above:Performed By: #### CDP, PFA, CP, GLYHGB #### [facility] [address] [place] [address] Executive Officer: Savage Jacob MD(cont.)[facility] Comment on above:Result Comment: Average GFR for 70 or more years old: 75 mL/min/1.73sq m Chronic Kidney Disease: <60 mL/min/1.73sq m Kidney failure: <15 mL/min/1.73sq m eGFR calculated using average adult body mass. Additional eGFR calculator available at: http://www.[employer].[facility]/multiple_crcl_2012.htmPerformed By: #### CDP, PFA, CP, GLYHGB #### [facility] [address] [place] [address] Executive Officer: Chayito Barahona gap [Moles/Vol]17 mmol/LNormal9-17[facility] Medical CenterComment on above:Performed By: #### CDP, PFA, CP, GLYHGB #### [facility] [address] [place] [address] Executive Officer: Savage Jacob MDCalcium [Mass/Vol]8.7 mg/dLNormal8.6-10.4[facility] Medical CenterComment on above:Performed By: #### CDP, PFA, CP, GLYHGB #### [facility] [address] [place] [address] Executive Officer: Savage Jacob MDChloride [Moles/Vol]102 mmol/RXtzbyx38-132GigalUniversity Hospitals Beachwood Medical CenterComment on above:Performed By: #### CDP, PFA, CP, GLYHGB #### [facility] [address] [place] [address] 19646 Executive Officer: Savage Jacob MDCO2 [Moles/Vol]26 mmol/SFcvdnc17-92PqtoxUniversity Hospitals Beachwood Medical CenterComment on above:Performed By: #### CDP, PFA, CP, GLYHGB #### [facility] [address] [place] [address] Executive Officer: Savage Jacob MDCreatinine [Mass/Vol]1.29 mg/dLHigh0.50-0.90 [facility] Medical CenterComment on above:Performed By: #### CDP, PFA, CP, GLYHGB #### [facility] [address] [place] [address] Executive Officer: SALLY Barahona, Amer50 mL/minLow>60[facility] Medical CenterComment on above:Performed By: #### CDP, PFA, CP, GLYHGB #### [facility] [address] [place] [address] 19083 Executive Officer: SALLY Barahona,non Amer41 mL/minLow>60[facility] Medical CenterComment on above:Performed By: #### CDP, PFA, CP, GLYHGB #### [facility] [address] [place] [address] Executive Officer: Savage Jacob MDGlucose [Mass/Vol]287 mg/cVGulf07-74Dakvk [facility] West CovinaComment on above:Performed By: #### CDP, PFA, CP, GLYHGB #### [facility] [address] [place] [address] Executive Officer: HALEY Barahonaotassium [Moles/Vol]3.2 mmol/LLow3.7-5.3Mercy [facility] Hospital Of West CovinaComment on above:Performed By: #### CDP, PFA, CP, GLYHGB #### [facility] [address] [place] [address] Executive Officer: ZANA Barahonaodium [Moles/Vol]145 mmol/IKzcj231-832QbdbnUniversity Hospitals Beachwood Medical CenterComment on above:Performed By: #### CDP, PFA, CP, GLYHGB #### [facility] [address] [place] [address] Executive Officer: Savage Jacob MDUrea nitrogen [Mass/Vol]32 mg/dLHigh8-23[facility] Medical CenterComment on above:Performed By: #### CDP, PFA, CP, GLYHGB #### [facility] [address] [place] [address]65 Executive Officer: ELMER BarahonaN/CRE RatioNOT REPORTEDNormal9-20[facility] Medical CenterComment on above:Performed By: #### CDP, PFA, CP, GLYHGB #### [facility] [address] [place] [address] Executive Officer: ZANA Barahonataging:NOT REPORTEDNormalUniversity Hospitals Beachwood Medical CenterComment on above:Performed By: #### CDP, PFA, CP, GLYHGB #### [facility] [address] [place] [address] Executive Officer: CASEY BarahonaALCIUM, IONIC (POC)on 39-25-9190PNZ Ionized Calcium1.16 mmol/L1.15 - 1.33 mmol/[facility] [place], KYPOC Ionized Calcium1.16 mmol/L1.15 - 1.33 mmol/[facility] [place], KYPOC Ionized Calcium1.15 mmol/L1.15 - 1.33 mmol/[facility] [place], KYPOC Ionized Calcium1.18 mmol/L1.15 - 1.33 mmol/L [facility], KYPO Ionized Calcium1.14 mmol/LLow1.15 - 1.33 mmol/[facility] [place], KYPOC Ionized Calcium1.11 mmol/LLow1.15 - 1.33 mmol/[facility] [place], KYPOC Ionized Calcium1.14 mmol/LLow1.15 - 1.33 mmol/[facility] [place], KYPOC Ionized Calcium1.13 mmol/LLow1.15 - 1.33 mmol/[facility] [place], KYCALCIUM, IONIZEDon 14-38-4637Dybhkrx, Ion1.07 mmol/LLow1.13 - 1.33 mmol/[facility] [place], KYInterpretation and review of laboratory resultsAbnormLakeHealth TriPoint Medical Center, KYCBCon 98-75-3310Tjsvhwhwwqp distribution width (RBC) [Ratio]15.4 %High 11.8-14.4[facility] Medical CenterComment on above:Performed By: #### CDP, PFA, CP, GLYHGB #### [facility] [address] [place] [address] Executive Officer: Savage Jacob MDHematocrit (Bld) [Volume fraction]27.7 %Low 36.3-47.1MEmanate Health/Foothill Presbyterian HospitalComment on above:Performed By: #### CDP, PFA, CP, GLYHGB #### [facility] [address] [place] [address] Executive Officer: Savage Jacob MDHemoglobin (Bld) [Mass/Vol]8.6 g/dLLow11.9-15.1 [facility] Medical CenterComment on above:Performed By: #### CDP, PFA, CP, GLYHGB #### [facility] [employer] [address] [place] [address] Executive Officer: ALISSA BarahonaCH (RBC) [Entitic mass]28.9 mfUohoce01.2-33.5 [facility] CenterComment on above:Performed By: #### CDP, PFA, CP, GLYHGB #### [address] [address] Executive Officer: JAIME BarahonaC (RBC) [Mass/Vol]31.0 g/oZEzxzcp49.4-34.8 [facility] Medical CenterComment on above:Performed By: #### CDP, PFA, CP, GLYHGB #### [address] [address] Executive Officer: ALISSA BarahonaCV (RBC) [Entitic vol]93.0 cKUfiwrs10.6-102.9 [facility] Medical CenterComment on above:Performed By: #### CDP, PFA, CP, GLYHGB #### [place] [address] Executive Officer: Savage Jacob MDNRBC Automated2.4 per 100 WBCHigh0.0[facility] Medical CenterComment on above:Performed By: #### CDP, PFA, CP, GLYHGB #### [place] [address] Executive Officer: HALEY Barahonalatelet mean volume (Bld) [Entitic vol]9.8 fL Normal8.1-13.5[facility] Medical CenterComment on above:Performed By: #### CDP, PFA, CP, GLYHGB #### [address] [address] Executive Officer: HALEY Barahonalatelets (Bld) [#/Vol]305 10*3/gADrbuev152-298 [facility] CenterComment on above:Performed By: #### CDP, PFA, CP, GLYHGB #### [facility] [employer] [address] [place] [address] Executive Officer: ISABELLE BarahonaBC (Bld) [#/Vol]2.98 10*6/uLLow3.95-5.11[facility] Medical CenterComment on above:Performed By: #### CDP, PFA, CP, GLYHGB #### [facility] [employer] [address] [place] [address] Executive Officer: Savage Jacob MDWBC (Bld) [#/Vol]15.5 10*3/uLHigh3.5-11.3MEmanate Health/Foothill Presbyterian HospitalComment on above:Performed By: #### CDP, PFA, CP, GLYHGB #### [facility] [employer] [address] [place] [address] Executive Officer: Savage Jacob MDErythrocyte distribution width (RBC) [Ratio]15.4 %High11.8 - 14.4 %[facility], ORHematocrit (Bld) [Volume fraction]27.7 % Low36.3 - 47.1 %[facility], ORHemoglobin (Bld) [Mass/Vol]8.6 g/dLLow11.9 - 15.1 g/dLUniversity Hospitals Geneva [facility], ORInterpretation and review of laboratory results AbnormalUniversity Hospitals Geneva [facility] Center, ORMCH (RBC) [Entitic mass]28.9 pg25.2 - 33.5 pgUniversity Hospitals Geneva Medical Center, ORMCHC (RBC) [Mass/Vol]31.0 g/dL28.4 - 34.8 g/dLUniversity Hospitals [facility], [place] MCV (RBC) [Entitic vol]93.0 fL82.6 - 102.9 fLUniversity Hospitals Geneva Medical Center, ORPlatelet mean volume (Bld) [Entitic vol]9.8 fL8.1 - 13.5 fLUniversity Hospitals Geneva Medical Center, ORPlatelets (Bld) [#/Vol]305 10*3/uLKettering Health Behavioral [facility] Center Health- [place], KYRBC (Bld) [#/Vol]2.98 10*6/uLLow3.95 - 5.11 m/uLKettering Health Behavioral Medical Center Health- [place], KYWBC (Bld) [#/Vol]2.4 10*3/uLHigh0.[address] [facility]- [place], KYWBC (Bld) [#/Vol]15.5 10*3/uLHighKettering Health Behavioral Medical Center Health- [place], [place] CHLORIDE (POC)on 69-48-1120DTT Cawapauy611 mmol/L98 - 107 mmol/LMercy Health- [place], KYPOC Dpqloknx832 mmol/LHigh98 - 107 mmol/LMercy [facility]- [place], KYPOC Chloride 106 mmol/L98 - 107 mmol/LM[facility]- [place], KYPOC Umnnclxl824 mmol/L98 - 107 mmol/[facility]- [place], KYPOC Xcgocjar802 mmol/L98 - 107 mmol/LM[facility]- [place], KYPOC Fbqcecoi191 mmol/L98 - 107 mmol/[facility]- [place], KYPOC Uzxtbtss769 mmol/L98 - 107 mmol/LMer[facility]- [place], KYPOC Hcxcbqon728 mmol/L98 - 107 mmol/L [facility] [place], KYCalcium, Ionicon 63-75-7499Qszvaph [Mass/Vol]1.07 mmol/LLow 1.13-1.33[facility] Medical CenterComment on above:Performed By: #### CDP, PFA, CP, GLYHGB #### [facility] [address] [place] [address] Executive Officer: Janae Barahona W/GFR Point of Careon 87-86-0247UGE CommentSt. [facility]- [place], KYGFR Blhfevz53 mL/minLow>60[facility]- [place], KYGFR Non- Lxtdaxtc62 mL/minLow>60[facility]- [place], KYPOC Creatinine1.28 mg/dL High0.51 - 1.19 mg/dLSt. [facility]- [place], KYGFR Cakfvqy86 mL/minLow>60[facility]- [place], KYGFR CommentSt. [facility]- [place], KYGFR Non- Indixsvp53 mL/minLow>60 [facility]- [place], KYPOC Creatinine1.3 mg/dLHigh0.51 - 1.19 mg/dLMercy Health- [place], KYGFR Msvczch95 mL/minLow>60[facility]- [place], KYGFR CommentMercy Health- [place], KYGFR Non- Jhbjbsyl16 mL/minLow>60[facility]- [place], KYPOC Creatinine1.27 mg/dLHigh0.51 - 1.19 mg/dLMercy Health- [place], KYGFR Tmoqigi75 mL/minLow>60[facility]- [place], KYGFR CommentMercy Health- [place], KYGFR Non- Nncrftfg47 mL/min Low>60[facility]- [place], KYPOC Creatinine1.22 mg/dLHigh0.51 - 1.19 mg/dLMercy Health- [place], KYGFR Faffyeq26 mL/minLow>60[facility]- [place], KYGFR CommentMercy Health- [place], KYGFR Non- Arxxcbkx59 mL/minLow>60[facility]- [place], KYPOC Creatinine1.26 mg/dLHigh0.51 - 1.19 mg/dLMercy Health- [place], KYGFR CommentMercy Health- [place], KYGFR Piihaco32 mL/minLow>60[facility]- [place], KYGFR Non- Uttsfkod78 mL/minLow>60[facility]- [place], KYPOC Creatinine1.24 mg/dLHigh0.51 - 1.19 mg/dLMercy Health- [place], KYGFR CommentMercy Health- [place], KYGFR Msxawjo97 mL/minLow>60[facility]- [place], KYGFR Non- Qesfxhxe61 mL/minLow>60[facility]- [place], KYPOC Creatinine1.23 mg/dLHigh0.51 - 1.19 mg/dLMercy Health- [place], [place] GFR Cohatmj97 mL/minLow>60[facility]- [place], KYGFR CommentMercy Health- [place], KYGFR Non- Hfsxmhxk44 mL/minLow>60[facility]- [place], KYPOC Creatinine1.29 mg/dL High0.51 - 1.19 mg/dLMercy Health- [place], KYEKG 12 [place] 64-66-8485Iwfsds Akbc135 BPMMercy Health- [place], KYQ-T Oxponyqb826 msMercy Health- [place], KYQRS Nrgfbxjv75 ms [facility]- [place], KYQTc Calculation (Chandrika)398 msMercy Health- [place], KYR Axis44 degreesMercy Health- [place], KYT [place]-101degreesMercy Health- [place], KYVentricular Rate 106BPMMercy Health- [place], KYMercy Health- [place], KYMercy Health- [place], KYELECTROLYTE PANELon 15-41-3794Yurcm gap [Moles/Vol]11 mmol/L9 - 17 mmol/LMer[facility]- [place], KYChloride [Moles/Vol]110 mmol/LHigh98 - 107 mmol/LMer[facility]- [place], KYCO2 [Moles/Vol]26 mmol/L20 - 31 mmol/LM[facility]- [place], KYInterpretation and review of laboratory resultsAbnormalKettering Health [facility]- [place], KYPotassium [Moles/Vol]4.0 mmol/L 3.7 - 5.3 mmol/LM[facility]- [place], KYSodium [Moles/Vol]147 mmol/FVvjf875 - 144 mmol/LMer[facility] Health- [place], KYHemoglobin and hematocrit, bloodon 48-28-4118JUS Fpwznjidvz09 %Low36 - 46 %[facility]- [place], KYPOC Hemoglobin8.0 g/dLLow12 - 16 g/dLDayton Children'S Hospitalcy Health- [place], KYPOC Cgdhdmravq36 %Low36 - 46 %[facility]- [place], KYPOC Hemoglobin8.1 g/dLLow12 - 16 g/dLDayton Children'S Hospitalcy Health- [place], KYPOC Wmqsqneyxk83 %Low36 - 46 %[facility]- [place], KYPOC Hemoglobin8.1 g/dLLow12 - 16 g/dLMercy Health- [place], KYPOC Uqzdflkkhj97 %Low36 - 46 %[facility]- [place], KYPOC Hemoglobin8.5 g/dLLow12 - 16 g/dLMercy Health- [place], KYPOC Dmygsrymmh69 %Low36 - 46 %[facility]- [place], [place] POC Hemoglobin9.1 g/dLLow12 - 16 g/dLKettering Health Behavioral Medical Center [facility]- [place], KYPOC Ncdbdlsslr91 %Low36 - 46 %[facility]- [place], KYPOC Hemoglobin9.2 g/dLLow12 - 16 g/dLKettering Health Behavioral Medical Center [facility]- [place], KYPOC Ympzhyzzce97 %Low36 - 46 %[facility], KYPOC Hemoglobin8.2 g/dL Low12 - 16 g/dLUniversity Hospitals Geneva Medical Center, KYPOC Cejscyulse02 %Low36 - 46 %[facility], ORPO Esvrsnlsbx86.2 g/dLLow12 - 16 g/dLUniversity Hospitals Geneva Medical Center, KYLactic Acid, POC on 77-39-9315IBP Lactic Acid0.51 mmol/LLow0.56 - 1.39 mmol/[facility] [place], [place] POC Lactic Acid0.64 mmol/L0.56 - 1.39 mmol/[facility] [place], KYPOC Lactic Acid 0.73 mmol/L0.56 - 1.39 mmol/[facility] [place], KYPOC Lactic Acid1.11 mmol/L0.56 - 1.39 mmol/[facility] [place], KYPOC Lactic Acid0.74 mmol/L0.56 - 1.39 mmol/L [facility], KYPOC Lactic Acid0.84 mmol/L0.56 - 1.39 mmol/[facility] [place], KYPOC Lactic Acid0.92 mmol/L0.56 - 1.39 mmol/[facility] [place], KYPOC Lactic Acid1.00 mmol/L0.56 - 1.39 mmol/[facility] [place], KYMAGNESIUMon 07-11-2019 Magnesium [Mass/Vol]2.3 mg/dL1.6 - 2.6 mg/dLUniversity Hospitals [facility], KYMagnesiumon 73-97-3083Sekljlpco [Mass/Vol]2.3 mg/dLNormal1.6-2.6[facility] Of West CovinaComment on above:Performed By: #### CDP, PFA, CP, GLYHGB #### [employer] [address] [place] [address] Executive Officer: Savage Jacob, MDMagnesium [Mass/Vol]2.0 mg/dLNormal1.6-2.6Mer[facility] Of West CovinaComment on above:Performed By: #### CDP, PFA, CP, GLYHGB #### [facility] [address] [place] [address] Executive Officer: Savage Jacob MDMagnesium [Mass/Vol]2.0 mg/dL1.6 - 2.6 mg/dL [facility], KYNotification Panel, POCon [phone]rsgxt [facility], KYDate/Time07/11/201907:42:00[facility], KYNOTIFYnick [facility], KYREAD BACKFort Hamilton Hospital, KYActionNotifyRNMOur Lady of [facility] [place], KYDate/Time07/11/201905:55:00[facility], KYNOTIFYmarieMeParkwood Hospital, KYREAD BACKFort Hamilton Hospital, KYOPERATIVE REPORTon [phone] REPORT[address] [phone] OPERATIVE REPORT PATIENT NAME: ELEANOR MCCLAIN : 1950 MED REC NO: [id number] ROOM: 100 ACCOUNT NO: [id number] ADMIT DATE: 07/03/2019 PROVIDER: Caro Teresa MD [...] the operation. CARO TERESA MD DD/V_SSPAR_T Doc#: [id number] CC:[address] [id number] OPERATIVE REPORT PATIENT NAME: ELEANOR MCCLAIN : 1950 MED REC NO: [id number] ROOM: 1006 ACCOUNT NO: [id number] ADMIT DATE: 07/03/2019 PROVIDER: Caro Teresa MD [...] to perform this operation. CARO TERESA MD DD/Shaan_SSPAR_T Doc#: [id number] CC:[address] [id number] OPERATIVE REPORT PATIENT NAME: ELEANOR MCCLAIN : 1950 MED REC NO: [id number] ROOM: 1006 ACCOUNT NO: [id number] ADMIT DATE: 07/03/2019 PROVIDER: Caro Teresa MD [...] to me by Dr. Anshul Irizarry of [facility], who has been diagnosed with severe aortic [...] this operation. CARO TERESA MD DD/V_SSNKC_I Doc#: [id number] CC:[facility] Hospitalon [phone] and review of laboratory resultsAbnoTriHealth Good Samaritan Hospital, KYInterpretation and review of laboratory resultsAbPomerene Hospital, KYInterpretation and review of laboratory resultsAbPomerene Hospital, KYInterpretation and review of laboratory resultsAbPomerene Hospital, KYInterpretation and review of laboratory resultsAbPomerene Hospital, KYInterpretation and review of laboratory resultsAbPomerene Hospital, KYInterpretation and review of laboratory resultsAbPomerene Hospital, KYInterpretation and review of laboratory resultsAbPomerene Hospital, KYInterpretation and review of laboratory resultsAbPomerene Hospital, KYPOC Glucose Fingerstick on 26-23-4551OXG Amnwsrd379 mg/dL65 - 105 mg/dLUniversity [facility]als [facility], KYPOCT Glucose on 98-26-2238ASL Gsappbf465 mg/dYUvxp74 - 100 mg/dLUniversity Hospitals [facility], KYPOC Fvibxfp994 mg/vJYszk35 - 100 mg/dLUniversity [facility]als [facility], KYPOC Rfkbtjj578 mg/bSPsuf99 - 100 mg/dLUniversity [facility]als [facility], KYPOC Puzzkst687 mg/gENilk66 - 100 mg/dLUniversity Hospitals [facility], KYPOC Mftzmvr342 mg/hWShfe47 - 100 mg/dLUniversity [facility]als [facility], KYPOC Nltsjta024 mg/vXOpiv20 - 100 mg/dLUniversity [facility]als [facility], KYPOC Tcsyfkm662 mg/wNOimz81 - 100 mg/dLUniversity [facility]als [facility], KYPOC Vorkfju538 mg/xRHdpw28 - 100 mg/dLUniversity Hospitals [facility], KYPOTASSIUM (POC)on 26-92-4417EGJ Potassium3.7 mmol/L3.5 - 4.5 mmol/[facility], KYPOC Potassium3.8 mmol/L3.5 - 4.5 mmol/[facility], KYPOC Potassium3.6 mmol/L3.5 - 4.5 mmol/[facility], KYPOC Potassium 3.1 mmol/LLow3.5 - 4.5 mmol/LMercy Health- [place], KYPOC Potassium3.2 mmol/LLow3.5 - 4.5 mmol/[facility] [place], [place]YPOC Potassium3.0 mmol/LLow3.5 - 4.5 mmol/[facility]- [place], [place]YPOC Potassium2.8 mmol/LCritically low3.5 - 4.5 mmol/[facility] [place], [place]YPOC Potassium3.0 mmol/LLow3.5 - 4.5 mmol/[facility] [place], KYPTon 05-38-2411IKU Coag (PPP) [Relative time]1.1 {INR}NormalUniversity Hospitals Beachwood Medical CenterComment on above:Result Comment: Therapeutic Range: Moderate Anticoagulant Intensity: INR = 2.0-3.0 High Anticoagulant Intensity: INR = 2.5-3.5Performed By: #### CDP, PFA, CP, GLYHGB #### [employer] [address] [place] [address] Executive Officer: RIGO Barahona Coag (PPP) [Time]11.7 sNormal9.0-12.0University Hospitals Beachwood Medical CenterComment on above:Performed By: #### CDP, PFA, CP, GLYHGB #### [facility] [address] [place] [address] Executive Officer: HALEY Barahonahosphoruson 14-17-3018Pmcbncjug [Mass/Vol]2.5 mg/dLLow2.6 - 4.5 mg/dLUniversity Hospitals Geneva Medical Center, KYPhosphorus, Inorg.on 07-11-2019 Phosphorus, Inorg.2.5 mg/dLLow2.6-4.5[facility] Hospitals Beachwood Medical CenterComment on above:Performed By: #### CDP, PFA, CP, GLYHGB #### [facility] [address] [place] [address] Executive Officer: Ric Barahonaime-INRon [id number] Coag (PPP) [Relative time]1.1 {INR}[facility], KYPT Coag (PPP) [Time]11.7 s[facility]- [place], KYSODIUM (POC)on 62-42-0357SOL Snmnqg307 mmol/XZdem579 - 146 mmol/[facility], KYPOC Mtugta848 mmol/CWtkn438 - 146 mmol/[facility], KYPOC Ggnlbc509 mmol/GNqhs912 - 146 mmol/[facility], KYPOC Foqvsg739 mmol/BEnyw889 - 146 mmol/[facility], KYPOC Kzivvu939 mmol/L138 - 146 mmol/[facility], KYPOC Hrengo142 mmol/L138 - 146 mmol/[facility], KYPOC Piftoq039 mmol/L 138 - 146 mmol/[facility], KYPOC Knmste025 mmol/L138 - 146 mmol/[facility], KYXR CHEST PORTABLEon 26-06-6327IV CHEST PORTABLEEXAMINATION: ONE XRAY VIEW OF THE [...] Signed by: Cyril Warner MD 07/11/19 Final resultNoCommunity [facility], [facility], [facility], KYXR CHEST PORTABLEEXAMINATION: ONE XRAY VIEW OF [...] Signed by: Jesús Clemons MD 07/11/19 Final resultNoMercy Health West HospitalXR CHEST PORTABLEEXAMINATION: ONE XRAY VIEW OF [...] Signed by: Александр Barreto MD 07/11/19 Final resultNoCommunity [facility], [facility], [facility], [facility], [facility], [facility], [facility] [phone] Coag (Erlinda) [Time]38.1 sHigh20.5-30.5University Hospitals Beachwood Medical CenterComment on above:Performed By: #### CDP, PFA, CP, GLYHGB #### [facility] [address] [place], [place] [id number] Executive Officer: Savage Madoff, MDaPTT Coag (Bld) [Time]38.1 [facility]- [place], KYInterpretation and review of laboratory resultsAbnoKettering Health Main Campus- [place], KYaPTT Coag (Bld) [Time]41.6 [facility]-[address] [place] [address] Comment on above:Performed By: #### CDP, PFA, CP, GLYHGB #### [facility] [place], [place] [id number] Executive Officer: Shalom Barahonag (Bld) [Time]41.6 [facility] [place], KYInterpretation and review of laboratory resultsAbnoMcKitrick Hospital [place], KYaPTT Coag (Bld) [Time]38.2 [facility]h20.5-30.5[facility] Comment on above:Performed By: #### CDP, PFA, CP, GLYHGB #### [facility] [address] [place] [address] Executive Officer: Shalom Baarhona Coag (Bld) [Time]38.2 [facility] [place], KYInterpretation and review of laboratory resultsAbnoKettering Health Main Campus- [place], KYAnion Gap (Calc) POCon 21-67-2767Nhkpb gap [Moles/Vol]9 mmol/L7 - 16 mmol/L [facility]- [place], ORAnion gap [Moles/Vol]9 mmol/L7 - 16 mmol/LMMemorial Health System- [place], KYArterial Blood Gas, POCon 70-91-5610Mtguk TestNOT REPORTEDKettering Health [facility]- [place], [place] FGE090.0[facility]- [place], KYModeNOT REPORTEDKettering Health Behavior[facility]- [place], KYNegative Base Excess, ArtNOT REPORTEDKettering Health Behavioral [facility]- [place], KYO2 Device/Flow/%BIPAPKettering Health Behavioral [facility]- [place], KYPOC ISZ394.6 mmol/LHigh21 - 28 mmol/LMhocking valley community hospitaly Health- [place], [place]YPOC O2 SAT95 %94 - 98 %[facility]- [place], ORPOC nNF917.8[facility]- [place], ORPO pCO2 TempNOT REPORTEDmm HgMercy Health- [place], ORPOC pH7.428[facility]- [place], [place]POC pH TempNOT REPORTEDMercy Health- [place], ORPOC PO273.3LowMercy Health- [place], ORPO pO2 TempNOT REPORTEDmm HgMercy Health- [place], KYPositive Base Excess, Rhj8UuxcGnaqx Health- [place], KYPt TempNOT REPORTEDMercy Health- [place], ORSample SiteArterial LineMercy Health- [place], ORTCO2 (calc), Art31 mmol/LHigh22 - 29 mmol/LMercy [facility]- [place], ORAllen Test NOT REPORTEDMercy Health- [place], COOHT887.0[facility]- [place], ORModeNOT REPORTED [facility]- [place], KYNegative Base Excess, ArtNOT REPORTEDMercy Health- [place], ORO2 Device/Flow/%BIPAPMercy Health- [place], [facility] GOG328.1 mmol/LHigh21 - 28 mmol/LMercy [facility]- [place], [facility] O2 SAT98 %94 - 98 %[facility] [place], [facility] jMN048.8[facility] [place], [facility] pCO2 TempNOT REPORTEDmm HgMercy Health- [place], [facility] pH7.401[facility]- [place], [facility] pH TempNOT REPORTEDMercy Health- [place], [facility] JN3135.2[facility]- [place], [facility] pO2 TempNOT REPORTEDmm HgMercy Health- [place], ORPositive Base Excess, Zkj2SstuNczim Health- [place], ORPt TempNOT REPORTEDMercy Health- [place], [place] Sample SiteArterial LineMercy Health- [place], ORTCO2 (calc), Art31 mmol/LHigh22 - 29 mmol/LMercy [facility]- [place], ORAllen TestNOT REPORTEDMercy [facility]- [place], LCYAJ569.0 [facility]- [place], ORModePRVCMercy Health- [place], KYNegative Base Excess, ArtNOT REPORTEDMercy Health- [place], ORO2 Device/Flow/%Adult VentilatorMer Health- [place], [place] POC GWA366.7 mmol/LHigh21 - 28 mmol/LMercy [facility]- [place], [facility] O2 SAT96 %94 - 98 % [facility]- [place], ORPOC wLT583.3HighMercy Health- [place], [facility] pCO2 TempNOT REPORTEDmm HgMercy Health- [place], [facility] pH7.337LowMercy Health- [place], [facility] pH Temp NOT REPORTEDMercy Health- [place], [facility] PO287.4[facility]- [place], ORPO pO2 TempNOT REPORTEDmm HgMercy Health- [place], ORPositive Base Excess, Wwg7DjjqSrtkp Health- [place], KYPt TempNOT REPORTEDMercy Health- [place], [facility] SiteLeft Radial ArteryMercy Health- [place], ORTCO2 (calc), Art32 mmol/LHigh22 - 29 mmol/LMercy [facility]- [place], OR Graham TestNOT REPORTEDMercy [facility]- [place], NPKJZ4493.0[facility]- [place], ORModeNOT REPORTEDMer[facility]- [place], KYNegative Base Excess, ArtNOT REPORTEDMercy [facility]- [place], ORO2 Device/Flow/%NRBMercy Health- [place], [facility] YPO260.0 mmol/LHigh21 - 28 mmol/LMer[facility]- [place], [facility] O2 SAT96 %94 - 98 %[facility]- [place], [facility] pCO2 62.8HighMercy Health- [place], [facility] pCO2 TempNOT REPORTEDmm HgMercy Health- [place], [place] POC pH7.315LowMercy Health- [place], [facility] pH TempNOT REPORTEDMercy Health- [place], [facility] PO293.5[facility]- [place], [facility] pO2 TempNOT REPORTEDmm HgMercy Health- [place], [place] Positive Base Excess, Odc8TvtnJplbk Health- [place], ORPt TempNOT REPORTEDMercy Health- [place], [facility] Radial ArteryMercy Health- [place], ORTCO2 (calc), Art 34 mmol/LHigh22 - 29 mmol/LMercy [facility]- [place], [facility] Metabolic Panelon 43-36-7207Axjys gap [Moles/Vol]16 mmol/L9 - 17 mmol/LMercy [facility]- [place], ORBun/Cre RatioNOT REPORTEDMercy Health- [place], ORCalcium [Mass/Vol]8.7 mg/dL8.6 - 10.4 mg/dLMercy Health- [place], ORChloride [Moles/Vol]109 mmol/LHigh98 - 107 mmol/LMercy [facility]- [place], KYCO2 [Moles/Vol]23 mmol/L20 - 31 mmol/[facility], [place] Creatinine [Mass/Vol]1.41 mg/dLHigh0.5 - 0.9 mg/dLUniversity Hospitals [facility], KYGFR Bbnpwhui79 mL/minLow>60[facility], KYGFR CommentUniversity Hospitals Geneva Medical Center, KYGFR Non- Gdekicqm06 mL/minLow>60[facility], KYGFR StagingNOT REPORTEDUniversity Hospitals [facility], KYGlucose [Mass/Vol]233 mg/lWNcqw75 - 99 mg/dLUniversity Hospitals [facility], KYInterpretation and review of laboratory resultsAbnormalUniversity Hospitals Geneva Medical Center, KYPotassium [Moles/Vol]4.0 mmol/L3.7 - 5.3 mmol/[facility], KYSodium [Moles/Vol]148 mmol/QOnky646 - 144 mmol/[facility], KYUrea nitrogen [Mass/Vol]41 mg/dLHigh8 - 23 mg/dLUniversity Hospitals [facility], KYBasic Metabolic Profon 07-10-2019(cont.)NormalUniversity Hospitals Beachwood Medical CenterComment on above: Result Comment: Average GFR for 70 or more years old: 75 mL/min/1.73sq m Chronic Kidney Disease: <60 mL/min/1.73sq m Kidney failure: <15 mL/min/1.73sq m eGFR calculated using average adult body mass. Additional eGFR calculator available at: http://www.[employer].[facility]/multiple_crcl_2011.htmPerformed By: #### CDP, PFA, CP, GLYHGB #### [facility] [address] [place], [place] [phone] Executive Officer: Chayito Barahona gap [Moles/Vol]16 mmol/LNormal9-17[facility] Beachwood Medical CenterComment on above:Performed By: #### CDP, PFA, CP, GLYHGB #### [facility] [address] [place], [place] [phone] Executive Officer: CASEY Barahonaalcium [Mass/Vol]8.7 mg/dLNormal8.6-10.4[facility] Medical CenterComment on above:Performed By: #### CDP, PFA, CP, GLYHGB #### [facility] [employer] [address] [place] [address] Executive Officer: Savage Jacob MDChloride [Moles/Vol]109 mmol/RTdpf35-341PibxwUniversity Hospitals Beachwood Medical CenterComment on above:Performed By: #### CDP, PFA, CP, GLYHGB #### [facility] [employer] [address] [place] [address] Executive Officer: Savage Jacob MDCO2 [Moles/Vol]23 mmol/DJizzki96-34DsjrfUniversity Hospitals Beachwood Medical CenterComment on above:Performed By: #### CDP, PFA, CP, GLYHGB #### [address] [address] Executive Officer: CASEY Barahonareatinine [Mass/Vol]1.41 mg/dLHigh0.50-0.90 [facility] Medical CenterComment on above:Performed By: #### CDP, PFA, CP, GLYHGB #### [facility] [employer] [address] [place] [address] Executive Officer: Savage Jacob MDGFR, Amer45 mL/minLow>60[facility] Medical CenterComment on above:Performed By: #### CDP, PFA, CP, GLYHGB #### [facility] [employer] [address] [place] [address] Executive Officer: Savage Jacob MDGFR,non Amer37 mL/minLow>60[facility] Medical CenterComment on above:Performed By: #### CDP, PFA, CP, GLYHGB #### [facility] [employer] [address] [place] [address] Executive Officer: Savage Jacob MDGlucose [Mass/Vol]233 mg/yDNrnv74-33OpvihEmanate Health/Foothill Presbyterian HospitalComment on above:Performed By: #### CDP, PFA, CP, GLYHGB #### [address] [address] Executive Officer: HALEY Barahonaotassium [Moles/Vol]4.0 mmol/LNormal3.7-5.3 [facility] Medical CenterComment on above:Performed By: #### CDP, PFA, CP, GLYHGB #### [address] [address] Executive Officer: ZANA Barahonaodium [Moles/Vol]148 mmol/FBhse941-514MfbtiUniversity Hospitals Beachwood Medical CenterComment on above:Performed By: #### CDP, PFA, CP, GLYHGB #### [address] [address] Executive Officer: Sherie Barahona nitrogen [Mass/Vol]41 mg/dLHigh8-23[facility] Beach[facility] Medical CenterComment on above:Performed By: #### CDP, PFA, CP, GLYHGB #### [address] [address] Executive Officer: FELICITY Barahona/CRE CyrusOT REPORTEDNormal9-20[facility] Beachwood Medical CenterComment on above:Performed By: #### CDP, PFA, CP, GLYHGB #### [address] [address] Executive Officer: ZANA Barahonataging:NOT REPORTEDNormalUniversity Hospitals Beachwood Medical CenterComment on above:Performed By: #### CDP, PFA, CP, GLYHGB #### [facility] [employer] [address] [place] [address] Executive Officer: CASEY BarahonaALCIUM, IONIC (POC)on 75-85-8352ABV Ionized Calcium1.21 mmol/L1.15 - 1.33 mmol/LMercy [facility], KYPOC Ionized Calcium1.21 mmol/L1.15 - 1.33 mmol/LMSycamore Medical Center KYCBCon 93-95-6881Eyhjfolfbul distribution width (RBC) [Ratio]15.5 %High11.8-14.4[facility] Beachwood Medical CenterComment on above:Performed By: #### CDP, PFA, CP, GLYHGB #### [address] [address] Executive Officer: Savage Jacob MDHematocrit (Bld) [Volume fraction]27.5 %Low 36.3-47.1MEmanate Health/Foothill Presbyterian HospitalComment on above:Performed By: #### CDP, PFA, CP, GLYHGB #### [address] [address] Executive Officer: Savage Jacob MDHemoglobin (Bld) [Mass/Vol]8.3 g/dLLow11.9-15.1 [facility] Medical CenterComment on above:Performed By: #### CDP, PFA, CP, GLYHGB #### [address] [address] Executive Officer: ALISSA BarahonaCH (RBC) [Entitic mass]28.7 riCizxds09.2-33.5 [facility] Medical CenterComment on above:Performed By: #### CDP, PFA, CP, GLYHGB #### [facility] [employer] [address] [place] [address] Executive Officer: JAIME BarahonaC (RBC) [Mass/Vol]30.2 g/oIVlwisv44.4-34.8 [facility] Medical CenterComment on above:Performed By: #### CDP, PFA, CP, GLYHGB #### [facility] [employer] [address] [place] [address] Executive Officer: ALISSA BarahonaCV (RBC) [Entitic vol]95.2 nDVshoap19.6-102.9 [facility] Medical CenterComment on above:Performed By: #### CDP, PFA, CP, GLYHGB #### [address] [address] Executive Officer: ILANA Barahona Automated2.0 per 100 WBCHigh0.0[facility] Beachwood Medical CenterComment on above:Performed By: #### CDP, PFA, CP, GLYHGB #### [address] [address] Executive Officer: Daniel Barahona mean volume (Bld) [Entitic vol]9.9 fL Normal8.1-13.5[facility] Medical CenterComment on above:Performed By: #### CDP, PFA, CP, GLYHGB #### [address] [address] Executive Officer: Rico Barahona (Bld) [#/Vol]237 10*3/uUSgrset833-741 [facility] Medical CenterComment on above:Performed By: #### CDP, PFA, CP, GLYHGB #### [address] [address] Executive Officer: MELISSA Barahona (Bld) [#/Vol]2.89 10*6/uLLow3.95-5.11[facility] Medical CenterComment on above:Performed By: #### CDP, PFA, CP, GLYHGB #### [address] [address] Executive Officer: PETR Barahona (Bld) [#/Vol]14.3 10*3/uLHigh3.5-11.3MEmanate Health/Foothill Presbyterian HospitalComment on above:Performed By: #### CDP, PFA, CP, GLYHGB #### [address] [address] Executive Officer: Savage Jacob MDErythrocyte distribution width (RBC) [Ratio]15.5 %High11.8 - 14.4 %[facility], KYHematocrit (Bld) [Volume fraction]27.5 % Low36.3 - 47.1 %[facility] [place], KYHemoglobin (Bld) [Mass/Vol]8.3 g/dLLow11.9 - 15.1 g/dLUniversity Hospitals Geneva Medical Center, KYInterpretation and review of laboratory results AbnormalUniversity Hospitals Geneva Medical Center, KYMCH (RBC) [Entitic mass]28.7 pg25.2 - 33.5 pgUniversity Hospitals Geneva Medical Center, KYMCHC (RBC) [Mass/Vol]30.2 g/dL28.4 - 34.8 g/dLUniversity Hospitals Geneva Medical Center, [place] MCV (RBC) [Entitic vol]95.2 fL82.6 - 102.9 fLUniversity Hospitals Geneva Medical Center, ORPlatelet mean volume (Bld) [Entitic vol]9.9 fL8.1 - 13.5 fLUniversity Hospitals Geneva Medical Center, KYPlatelets (Bld) [#/Vol]237 10*3/uLUniversity Hospitals Geneva Medical Center, KYRBC (Bld) [#/Vol]2.89 10*6/uLLow3.95 - 5.11 m/uLSt. [facility]- [place], KYWBC (Bld) [#/Vol]14.3 10*3/uLHighUniversity Hospitals Geneva [facility] Center, KYWBC (Bld) [#/Vol]2.0 10*3/uLHigh0.0 per 100 WBCUniversity Hospitals Geneva Medical Center, KYCHLORIDE (POC)on 56-33-0635WMV Esgwjwjz654 mmol/L98 - 107 mmol/LMWVUMedicine Harrison [facility] [place], KYPOC Kgooljwu763 mmol/L98 - 107 mmol/LMhocking valley community hospitaly [facility]- [place], KYCT HEAD WO CONTRASTon 11-83-2749BT HEAD WO CONTRASTEXAMINATION: CT OF THE HEAD [...] Signed by: Loki العلي MD 07/10/19 Final resultNormalGalion Hospital- [place], [facility] [place], [facility]- [place], KYCreatinine W/GFR Point of Careon 18-49-1873URD Xetljzq11 mL/minLow>60[facility]- [place], KYGFR CommentUniversity Hospitals [facility] [place], KYGFR Non- Fcwybbsw32 mL/minLow>60[facility] [place], KYPOC Creatinine1.39 mg/dL High0.51 - 1.19 mg/dLUniversity Hospitals [facility] [place], KYGFR Sisuyil73 mL/minLow>60[facility]- [place], KYGFR CommentUniversity Hospitals [facility] [place], KYGFR Non- Irytksmp18 mL/minLow>60 [facility]- [place], KYPOC Creatinine1.44 mg/dLHigh0.51 - 1.19 mg/dLUniversity Hospitals Conne[facility] [place], KYEKG 12 Leadon 32-37-2652Xypgjk Pbve65FYSCfmqn Health- [place], KYP Axis60 degreesSt. Mary'S [facility]- [place], KYP-R Nscbekje484 [facility]- [place], KYQ-T Vltvypwg265 [facility]- [place], KYQRS Bdxiegzd20 [facility]- [place], KYQTc Calculation (Chandrika)448 [facility]- [place], KYR Ncgh50upqrhagRstlw Health- [place], KYT Axis33 degreesSt. Mary[facility]- [place], KYVentricular Kddr67FGMZipty Health- [place], KYSt. [facility]- [place], KYSt. [facility]- [place], KYHemoglobin and hematocrit, bloodon 07-10-2019 POC Nvkqzrfvnq13 %Low36 - 46 %[facility] [place], KYPOC Hemoglobin8.4 g/dLLow12 - 16 g/dLUniversity Hospitals Conneaut Medical Center [place], KYPOC Pxwajpxich17 %Low36 - 46 %[facility] [place], KYPOC Hemoglobin8.5 g/dLLow12 - 16 g/dLUniversity Hospitals Conneaut Medical Center [place], KYLactic Acid, POCon 20-65-3525MOO Lactic Acid0.87 mmol/L0.56 - 1.39 mmol/[facility] [place], KYPOC Lactic Acid0.69 mmol/L0.56 - 1.39 mmol/[facility] [place], KYPOC Lactic Acid0.47 mmol/LLow0.56 - 1.39 mmol/[facility] [place], KYPOC Lactic Acid0.32 mmol/LLow0.56 - 1.39 mmol/LMWVUMedicine Harrison Community Hospital [place], KYMagnesiumon 15-25-9893Wqdpjeluu [Mass/Vol]2.2 mg/dLNormal1.6-2.6Mhocking valley community hospitaly [facility] Of West CovinaComment on above:Performed By: #### CDP, PFA, CP, GLYHGB #### [facility] [employer] [address] [place] [address] Executive Officer: Savage Jacob, MDMagnesium [Mass/Vol]2.2 mg/dL1.6 - 2.6 mg/dL [facility], KYOtheron 69-44-4305Gxokymqoutovxf and review of laboratory resultsAbPomerene Hospital, KYInterpretation and review of laboratory resultsAbPomerene Hospital, KYInterpretation and review of laboratory resultsAbPomerene Hospital, KYInterpretation and review of laboratory resultsAbPomerene Hospital, KYPOC Glucose Fingerstickon 07-10-2019 Interpretation and review of laboratory resultsAbPomerene Hospital, KYPOC Xoicfzw615 mg/gGFydv89 - 105 mg/dLUniversity Hospitals [facility], KYInterpretation and review of laboratory resultsAbnormLakeHealth [facility], KYPOC Qwsjqwa493 mg/cTUtoe31 - 105 mg/dLUniversity Hospitals [facility], KYInterpretation and review of laboratory results AbnormalUniversity Hospitals [facility], KYPOC Fzpjfik895 mg/gMIhok70 - 105 mg/dLUniversity Hospitals [facility], KYInterpretation and review of laboratory resultsAbnormLakeHealth [facility], KYPOC Rnwtrvw582 mg/wDMlxs14 - 105 mg/dLUniversity Hospitals [facility], KYInterpretation and review of laboratory resultsAbnormLakeHealth TriPoint [facility], KYPOC Aakqgdy256 mg/dLHigh 65 - 105 mg/dLUniversity Hospitals [facility] Center, KYPOCT Glucoseon 24-07-8676LHO Wjvuaib764 mg/dL High74 - 100 mg/dLUniversity Hospitals [facility], KYPOC Zrhynle398 mg/dBVqju71 - 100 mg/dL [facility], KYPOC Rcqwbxt273 mg/dIEfxu56 - 100 mg/dLUniversity Hospitals [facility] Center, [place] POC Ghmqski496 mg/pTEdeb83 - 100 mg/dLUniversity Hospitals Geneva Medical Center, KYPOTASSIUM (POC)on 73-11-6976AGT Potassium3.7 mmol/L3.5 - 4.5 mmol/LMOur [facility] of [facility], KYPOC Potassium3.7 mmol/L3.5 - 4.5 mmol/LMOur Lady of Mercy [facility], KYPTon 62-40-4924TQY Coag (PPP) [Relative time]1.4 {INR}NormalUniversity Hospitals Beachwood Medical CenterComment on above:Result Comment: Therapeutic Range: Moderate Anticoagulant Intensity: INR = 2.0-3.0 High Anticoagulant Intensity: INR = 2.5-3.5Performed By: #### CDP, PFA, CP, GLYHGB #### [facility] [address] [place] [id number] Executive Officer: RIGO Barahona Coag (PPP) [Time]14.3 sHigh9.0-12.0[facility] Medical CenterComment on above:Performed By: #### CDP, PFA, CP, GLYHGB #### [facility] [address] [place] [address] Executive Officer: Reinaldo Barahona 42-96-7430Xuhebrdns [Mass/Vol]3.2 mg/dL2.6 - 4.5 mg/dLUniversity Hospitals Geneva Medical Center, KYPhosphorus, Inorg.on 07-10-2019 Phosphorus, Inorg.3.2 mg/dLNormal2.6-4.5[facility] Medical CenterComment on above:Performed By: #### CDP, PFA, CP, GLYHGB #### [employer] [address] [place], [place] [id number] Executive Officer: HALEY Barahonarotime-INRon 71-63-4005NNW Coag (PPP) [Relative time]1.4 {INR}[facility], KYInterpretation and review of laboratory resultsAbPomerene Hospital, KYPT Coag (PPP) [Time]14.3 [facility], KYSODIUM (POC)on [id number] Lgkmxe606 mmol/L138 - 146 mmol/LMOur Lady of Mercy Hospital - Anderson, KYPOC Lddmrj867 mmol/L138 - 146 mmol/[facility], KYXR CHEST PORTABLE on [id number] CHEST PORTABLEEXAMINATION: ONE XRAY VIEW OF THE [...] Signed by: Blas Zimmer MD 07/10/19 Final resultNormalMarietta Memorial Hospital, [facility], KYMercy Health- [place], KYAPTTon [id number] Coag (Bld) [Time]37.4 s High20.5-30.5[facility] Beachwood Medical CenterComment on above:Performed By: #### CDP, PFA, CP, GLYHGB #### [facility] [address] [place] [address] [phone] Executive Officer: Delfino BarahonaT Coag (Bld) [Time]37.4 [facility]- [place], KYInterpretation and review of laboratory resultsAbnormKing's Daughters Medical Center [place]- [place], KYaPTT Coag (Bld) [Time]35.2 sHigh20.5-30.5[facility] Comment on above:Performed By: #### CDP, PFA, CP, GLYHGB #### [facility] [address] [place] [address] [phone] Executive Officer: Savage Jacob MDaPTJuanita Coag (Bld) [Time]35.2 [facility]- [place], KYAmmoniaon 27-23-6148Dhwcets (P) [Mass/Vol]40 umol/ATlmqbc12-90VgqglUniversity Hospitals Beachwood Medical CenterComment on above:Performed By: #### CDP, PFA, CP, GLYHGB #### [facility] [address] [place] [address] [phone] Executive Officer: Rain Barahonal Blood Gas, POCon 90-05-4414Ifbkx Test NOT REPORTEDK[facility]tering Health [facility]- [place], ZHCNB647.0[facility]- [place], KYInterpretation and review of laboratory resultsAbnormalKettering Health Behavior[facility]- [place], KYModeNOT REPORTEDMercy Health- [place], KYNegative Base Excess, ArtNOT REPORTEDMercy Health- [place], KYO2 Device/Flow/%BIPAPMercy Health- [place], KYPOC MXW327.0 mmol/L21 - 28 mmol/LMercy Health- [place], KYPOC O2 SAT97 %94 - 98 %[facility]- [place], KYPOC uJU483.0HighMer Health- [place], KYPO pCO2 TempNOT REPORTEDmm HgMercy Health- [place], KYS[facility] pH7.348Low [facility]- [place], [facility] pH TempNOT REPORTEDMercy Health- [place], K[facility] PO296.3[facility]- [place], KYPO pO2 TempNOT REPORTEDmm HgMercy Health- [place], KYPositive Base Excess, Agv3Mputw Health- [place], KYPt TempNOT REPORTEDMercy Health- [place], KYSample SiteArterial LineMercy Health- [place], KYTCO2 (calc), Art30 mmol/LHigh22 - 29 mmol/L [facility]- [place], [facility] METABOLIC PANELon 14-31-8007Qdjsx gap [Moles/Vol]13 mmol/L9 - 17 mmol/LMercy Health- [place], KYBun/Cre RatioNOT REPORTEDMer Health- [place], KYCalcium [Mass/Vol]8.3 mg/dLLow8.6 - 10.4 mg/dLKettering Health Behavioral [facility]- [place], KYChloride [Moles/Vol]106 mmol/L98 - 107 mmol/LMercy Health- [place], KYCO2 [Moles/Vol]25 mmol/L20 - 31 mmol/LMercy Health- [place], KYCreatinine [Mass/Vol]1.32 mg/dLHigh0.5 - 0.9 mg/dLK[facility]tering Health Behavior[facility]- [place], KYGFR Spqyxogt16 mL/minLow>60[facility]cy [facility]- [place], KYGFR CommentMer Health- [place], KYGFR Non- Egngulfb90 mL/minLow>60 [facility]- [place], KYGFR StagingNOT REPORTEDMer Health- [place], KYGlucose [Mass/Vol]205 mg/qPQkza17 - 99 mg/dLKettering Health Behavioral [facility] Center [facility]- [place], KYPotassium [Moles/Vol]3.9 mmol/L3.7 - 5.3 mmol/LMercy Health- [place], KYSodium [Moles/Vol]144 mmol/L135 - 144 mmol/LMercy Health- [place], KYUrea nitrogen [Mass/Vol]46 mg/dLHigh8 - 23 mg/dLKettering Health Behavioral [facility]- [place], [facility] Metabolic Profon 07-09-2019(cont.)[facility] - ColumbusComment on above:Result Comment: Average GFR for 70 or more years old: 75 mL/min/1.73sq m Chronic Kidney Disease: <60 mL/min/1.73sq m Kidney failure: <15 mL/min/1.73sq m eGFR calculated using average adult body mass. Additional eGFR calculator available at: http://www.[employer].com/multiple_crcl_2012.htmPerformed By: #### CDP, PFA, CP, GLYHGB #### [facility] [address] [place] [address] Executive Officer: Savage Jacob MDAnion gap [Moles/Vol]13 mmol/LNormal9-17[facility] Beachwood Medical CenterComment on above:Performed By: #### CDP, PFA, CP, GLYHGB #### [facility] [address] [place] [place] [address] Executive Officer: Savage Jacob MDCalcium [Mass/Vol]8.3 mg/dLLow8.6-10.4[facility] Beachwood Medical CenterComment on above:Performed By: #### CDP, PFA, CP, GLYHGB #### [facility] [address] [place] [address] Executive Officer: Savage Jacob MDChloride [Moles/Vol]106 mmol/PJjcgus52-578VnxxmUniversity Hospitals Beachwood Medical CenterComment on above:Performed By: #### CDP, PFA, CP, GLYHGB #### [facility] [address] [place] [address] Executive Officer: Savage Jacob MDCO2 [Moles/Vol]25 mmol/WKtsdcw37-04HbkxxUniversity Hospitals Beachwood Medical CenterComment on above:Performed By: #### CDP, PFA, CP, GLYHGB #### [facility] [address] [place] [address] Executive Officer: Savage Jacob MDCreatinine [Mass/Vol]1.32 mg/dLHigh0.50-0.90 [facility] CenterComment on above:Performed By: #### CDP, PFA, CP, GLYHGB #### [facility] [address] [place] [address] Executive Officer: Savage Jacob MDGFR, Amer48 mL/minLow>60[facility]wood Medical CenterComment on above:Performed By: #### CDP, PFA, CP, GLYHGB #### [facility] [address] [place] [address]275 Executive Officer: Savage Jacob MDGFR,non Amer40 mL/minLow>60[facility] Medical CenterComment on above:Performed By: #### CDP, PFA, CP, GLYHGB #### [address] [address] Executive Officer: Savage Jacob MDGlucose [Mass/Vol]205 mg/gDDyvb50-71SdcqwEmanate Health/Foothill Presbyterian HospitalComment on above:Performed By: #### CDP, PFA, CP, GLYHGB #### [address] [address] Executive Officer: HALEY Barahonaotassium [Moles/Vol]3.9 mmol/LNormal3.7-5.3 [facility] Medical CenterComment on above:Performed By: #### CDP, PFA, CP, GLYHGB #### [address] [address] Executive Officer: ZANA Barahonaodium [Moles/Vol]144 mmol/QJnizgx195-714IylxoUniversity Hospitals Beachwood Medical CenterComment on above:Performed By: #### CDP, PFA, CP, GLYHGB #### [address] [address] Executive Officer: Savage Jacob MDUrea nitrogen [Mass/Vol]46 mg/dLHigh8-23[facility] Medical CenterComment on above:Performed By: #### CDP, PFA, CP, GLYHGB #### [address] [address] Executive Officer: FELICITY Barahona/CRE RatioNOT REPORTEDNormal9-20[facility] Medical CenterComment on above:Performed By: #### CDP, PFA, CP, GLYHGB #### [facility] [address] [place] [address] 16792 Executive Officer: ZANA Barahonataging:NOT REPORTEDNormalUniversity Hospitals Beachwood Medical CenterComment on above:Performed By: #### CDP, PFA, CP, GLYHGB #### [facility] [address] [place] [address] Executive Officer: Ulysses Barahona 72-70-0799Qyocsvtaydo distribution width (RBC) [Ratio]15.3 %High11.8-14.4[facility] Medical CenterComment on above:Performed By: #### CDP, PFA, CP, GLYHGB #### [facility] [address] [place] [address] Executive Officer: Savage Jacob MDHematocrit (Bld) [Volume fraction]25.9 %Low 36.3-47.1MEmanate Health/Foothill Presbyterian HospitalComment on above:Performed By: #### CDP, PFA, CP, GLYHGB #### [facility] [address] [place] [address] Executive Officer: Savage Jacob MDHemoglobin (Bld) [Mass/Vol]8.3 g/dLLow11.9-15.1 [facility] Medical CenterComment on above:Performed By: #### CDP, PFA, CP, GLYHGB #### [facility] [address] [place] [place] [address] Executive Officer: ALISSA BarahonaCH (RBC) [Entitic mass]29.5 kfXgapto76.2-33.5 [facility] Medical CenterComment on above:Performed By: #### CDP, PFA, CP, GLYHGB #### [address] [address] Executive Officer: ALISSA BarahonaCHC (RBC) [Mass/Vol]32.0 g/rCVhlaxz32.4-34.8 [facility] CenterComment on above:Performed By: #### CDP, PFA, CP, GLYHGB #### [address] [address] Executive Officer: ALISSA BarahonaCV (RBC) [Entitic vol]92.2 cIAbbjaa40.6-102.9 [facility] CenterComment on above:Performed By: #### CDP, PFA, CP, GLYHGB #### [address] [address] Executive Officer: Savage Jacob MDNRBC Automated1.2 per 100 WBCHigh0.0[facility] Beachwood Medical CenterComment on above:Performed By: #### CDP, PFA, CP, GLYHGB #### [address] [address] Executive Officer: Daniel Barahona mean volume (Bld) [Entitic vol]10.2 fL Normal8.1-13.5[facility] Medical CenterComment on above:Performed By: #### CDP, PFA, CP, GLYHGB #### [address] [address] Executive Officer: Taylor Barahonatejimbo (Bld) [#/Vol]188 10*3/fBKhgiyw429-481 [facility] CenterComment on above:Performed By: #### CDP, PFA, CP, GLYHGB #### [address] [address] Executive Officer: ISABELLE BarahonaBC (Bld) [#/Vol]2.81 10*6/uLLow3.95-5.11[facility] CenterComment on above:Performed By: #### CDP, PFA, CP, GLYHGB #### [facility] [address] [place], [place] [id number] Executive Officer: Savage Jacob MDWBC (Bld) [#/Vol]11.2 10*3/uLNormal3.5-11.3[facility] Doctors Hospital Of West CovinaComment on above:Performed By: #### CDP, PFA, CP, GLYHGB #### [facility] [address] [place], [place] [phone] Executive Officer: Savage Jacob MDErythrocyte distribution width (RBC) [Ratio]15.3 %High11.8 - 14.4 %[facility], KYHematocrit (Bld) [Volume fraction]25.9 % Low36.3 - 47.1 %[facility], ORHemoglobin (Bld) [Mass/Vol]8.3 g/dLLow11.9 - 15.1 g/dLUniversity Hospitals Geneva Medical Center, ORInterpretation and review of laboratory results AbnormalTuscarawas HospitalH (RBC) [Entitic mass]29.5 pg25.2 - 33.5 pgUniversity Hospitals [facility], ORMCHC (RBC) [Mass/Vol]32.0 g/dL28.4 - 34.8 g/dLUniversity Hospitals Geneva Medical Center, [place] MCV (RBC) [Entitic vol]92.2 fL82.6 - 102.9 fLUniversity Hospitals Geneva Medical Center, ORPlatelet mean volume (Bld) [Entitic vol]10.2 fL8.1 - 13.5 fLUniversity Hospitals Geneva Medical Center, KYPlatelets (Bld) [#/Vol]188 10*3/uLUniversity Hospitals Geneva [facility] Center, KYRBC (Bld) [#/Vol]2.81 10*6/uLLow3.95 - 5.11 m/[facility], KYWBC (Bld) [#/Vol]11.2 10*3/uLUniversity Hospitals Geneva Medical Center, KYWBC (Bld) [#/Vol]1.2 10*3/uLHigh0.0 per 100 WBCUniversity Hospitals Geneva Medical Center, KYErythrocyte distribution width (RBC) [Ratio]15.2 %High11.8-14.4[facility] Medical CenterComment on above:Performed By: #### CDP, PFA, CP, GLYHGB #### [facility] [address] [place] [address] Executive Officer: Savage Jacob MDHematocrit (Bld) [Volume fraction]26.1 %Low 36.3-47.1MEmanate Health/Foothill Presbyterian HospitalComment on above:Performed By: #### CDP, PFA, CP, GLYHGB #### [address] [address] Executive Officer: Savage Jacob MDHemoglobin (Bld) [Mass/Vol]8.2 g/dLLow11.9-15.1 [facility] CenterComment on above:Performed By: #### CDP, PFA, CP, GLYHGB #### [facility] [address] [place] [address] Executive Officer: ALISSA BarahonaCH (RBC) [Entitic mass]28.7 jaItkesp63.2-33.5 [facility] CenterComment on above:Performed By: #### CDP, PFA, CP, GLYHGB #### [facility] [address] [place] [address] Executive Officer: ALISSA BarahonaCHC (RBC) [Mass/Vol]31.4 g/vGEezksd16.4-34.8 [facility] CenterComment on above:Performed By: #### CDP, PFA, CP, GLYHGB #### [facility] [address] [place] [address] Executive Officer: ALISSA BarahonaCV (RBC) [Entitic vol]91.3 pUBwdbhz20.6-102.9 [facility] CenterComment on above:Performed By: #### CDP, PFA, CP, GLYHGB #### [facility] [address] [place] [address] Executive Officer: Savage Jacob MDNRBC Automated1.0 per 100 WBCHigh0.0[facility] Medical CenterComment on above:Performed By: #### CDP, PFA, CP, GLYHGB #### [address] [address] Executive Officer: Taylor Barahonatelet mean volume (Bld) [Entitic vol]9.9 fL Normal8.1-13.5[facility] Medical CenterComment on above:Performed By: #### CDP, PFA, CP, GLYHGB #### [address] [address] Executive Officer: Taylor Barahonatelets (Bld) [#/Vol]173 10*3/dEKqsacu247-536 [facility] CenterComment on above:Performed By: #### CDP, PFA, CP, GLYHGB #### [address] [address] Executive Officer: ISABELLE BarahonaBC (Bld) [#/Vol]2.86 10*6/uLLow3.95-5.11[facility] CenterComment on above:Performed By: #### CDP, PFA, CP, GLYHGB #### [address] [address] Executive Officer: Savage Jacob MDWBC (Bld) [#/Vol]11.1 10*3/uLNormal3.5-11.3MEmanate Health/Foothill Presbyterian HospitalComment on above:Performed By: #### CDP, PFA, CP, GLYHGB #### [address] [address] Executive Officer: Savage Jacob MDErythrocyte distribution width (RBC) [Ratio]15.2 %High11.8 - 14.4 %[place], KYHematocrit (Bld) [Volume fraction]26.1 % Low36.3 - 47.1 %[facility], ORHemoglobin (Bld) [Mass/Vol]8.2 g/dLLow11.9 - 15.1 g/dLUniversity Hospitals Geneva Medical Center, ORInterpretation and review of laboratory results AbnormalUniversity Hospitals [facility], [facility] (RBC) [Entitic mass]28.7 pg25.2 - 33.5 pgUniversity Hospitals Geneva Medical Center, ORMCHC (RBC) [Mass/Vol]31.4 g/dL28.4 - 34.8 g/dLUniversity Hospitals Geneva Medical Center, [place] MCV (RBC) [Entitic vol]91.3 fL82.6 - 102.9 fLAlexander, KYPlatelet mean volume (Bld) [Entitic vol]9.9 fL8.1 - 13.5 fLUniversity Hospitals Geneva Medical Center, ORPlatelets (Bld) [#/Vol]173 10*3/uLUniversity Hospitals Geneva Medical Center, ORRBC (Bld) [#/Vol]2.86 10*6/uLLow3.95 - 5.11 m/uLUniversity Hospitals Geneva Medical Center, ORWBC (Bld) [#/Vol]11.1 10*3/uLUniversity Hospitals Geneva [facility], [place] WBC (Bld) [#/Vol]1.0 10*3/uLHigh0.0 per 100 WBCUniversity Hospitals Geneva Medical Center, ORComp Metabolic Profon 07-09-2019(cont.)NormalUniversity Hospitals Beachwood Medical CenterComment on above:Result Comment: Average GFR for 70 or more years old: 75 mL/min/1.73sq m Chronic Kidney Disease: <60 mL/min/1.73sq m Kidney failure: <15 mL/min/1.73sq m eGFR calculated using average adult body mass. Additional eGFR calculator available at: http://www.[employer].[facility]/multiple_crcl_2012.htmPerformed By: #### CDP, PFA, CP, GLYHGB #### [facility] [address] [place] [address] Executive Officer: Savage Jacob MDAlbumin [Mass/Vol]3.3 g/dLLow3.5-5.2Mhocking valley community hospitaly Doctors Hospital Of West CovinaComment on above:Performed By: #### CDP, PFA, CP, GLYHGB #### [facility] [address] [place] [address] Executive Officer: Savage Jacob MDAlbumin/Globulin [Mass ratio]1.4 {ratio}Normal 1.0-2.5[facility] CenterComment on above:Performed By: #### CDP, PFA, CP, GLYHGB #### [address] [address] Executive Officer: Savage Jacob MDAlkaline Phos67 U/ACdmxnn76-867ZhvxeUniversity Hospitals Beachwood Medical CenterComment on above:Performed By: #### CDP, PFA, CP, GLYHGB #### [facility] [employer] [address] [place] [address] Executive Officer: Savage Jacob MDALT [Catalytic activity/Vol]17 U/LNormal5-33 [facility] CenterComment on above:Performed By: #### CDP, PFA, CP, GLYHGB #### [facility] [employer] [address] [place] [address] Executive Officer: Savage Jacob MDAnion gap [Moles/Vol]11 mmol/LNormal9-17[facility] CenterComment on above:Performed By: #### CDP, PFA, CP, GLYHGB #### [facility] [address] [place] [address] Executive Officer: Savage Jacob MDAST [Catalytic activity/Vol]29 U/LNormal<32[facility] CenterComment on above:Performed By: #### CDP, PFA, CP, GLYHGB #### [facility] [address] [place] [address] Executive Officer: Savage Jacob MDBilirubin Ql (U)0.36 mg/dLNormal0.3-1.2MEmanate Health/Foothill Presbyterian HospitalComment on above:Performed By: #### CDP, PFA, CP, GLYHGB #### [facility] [address] [place] [address] Executive Officer: CASEY Barahonaalcium [Mass/Vol]8.6 mg/dLNormal8.6-10.4[facility] CenterComment on above:Performed By: #### CDP, PFA, CP, GLYHGB #### [facility] [address] [place] [address] Executive Officer: Savage Jacob MDChloride [Moles/Vol]107 mmol/PRbeqoa08-204FdxyaUniversity Hospitals Beachwood Medical CenterComment on above:Performed By: #### CDP, PFA, CP, GLYHGB #### [place] [address] Executive Officer: Savage Jacob MDCO2 [Moles/Vol]24 mmol/WPtqbde40-28GslpiUniversity Hospitals Beachwood Medical CenterComment on above:Performed By: #### CDP, PFA, CP, GLYHGB #### [facility] [address] [place] [address] Executive Officer: CASEY Barahonareatinine [Mass/Vol]1.48 mg/dLHigh0.50-0.90 [facility] CenterComment on above:Performed By: #### CDP, PFA, CP, GLYHGB #### [facility] [address] [place] [address] Executive Officer: SALLY Barahona, Amer42 mL/minLow>60[facility] CenterComment on above:Performed By: #### CDP, PFA, CP, GLYHGB #### [facility] [address] [place] [address] Executive Officer: Savage Madoff, MDGFR,non Amer35 mL/minLow>60[facility] CenterComment on above:Performed By: #### CDP, PFA, CP, GLYHGB #### [address] [address] Executive Officer: Savage Jacob MDGlucose [Mass/Vol]179 mg/yIWdsf94-94BbtbeEmanate Health/Foothill Presbyterian HospitalComment on above:Performed By: #### CDP, PFA, CP, GLYHGB #### [place] [address] Executive Officer: Savage Jacob MDPotassium [Moles/Vol]3.7 mmol/LNormal3.7-5.3 [facility] CenterComment on above:Performed By: #### CDP, PFA, CP, GLYHGB #### [place] [address] Executive Officer: Savage Jacob MDProtein [Mass/Vol]5.7 g/dLLow6.4-8.3MEmanate Health/Foothill Presbyterian HospitalComment on above:Performed By: #### CDP, PFA, CP, GLYHGB #### [place] [address] Executive Officer: Savage Jacob MDSodium [Moles/Vol]142 mmol/QIdzuzm445-115GegorUniversity Hospitals Beachwood Medical CenterComment on above:Performed By: #### CDP, PFA, CP, GLYHGB #### [place] [address] Executive Officer: Savage Jacob MDUrea nitrogen [Mass/Vol]46 mg/dLHigh8-23[facility] CenterComment on above:Performed By: #### CDP, PFA, CP, GLYHGB #### [address] [address] Executive Officer: ELMER BarahonaN/CRE RatioNOT REPORTEDNormal9-20MerParadise Valley HospitalComment on above:Performed By: #### CDP, PFA, CP, GLYHGB #### [facility] [address] [place], [place] [id number] Executive Officer: ZANA Barahonataging:NOT REPORTEDNormalUniversity Hospitals Beachwood Medical CenterComment on above:Performed By: #### CDP, PFA, CP, GLYHGB #### [facility] [address] [place], [place] [id number] Executive Officer: Savage Jacob [facility] EDMONDomprehensive Metabolic Panelon 07-09-2019 Albumin [Mass/Vol]3.3 g/dLLow3.5 - [...] mg/dLHigh0.5 - 0.9 mg/dLMercy Health- [place], KYGFR Fzlkhqky64 mL/minLow>60[facility] [place], [place] GFR CommentMercy Health- [place], KYGFR Non- Hbeszrnh33 mL/minLow>60[facility]- [place], KYGFR StagingNOT REPORTEDMercy Health- [place], KYGlucose [Mass/Vol]179 mg/sZBmne20 - 99 mg/dLMercy Health- [place], KYPotassium [Moles/Vol]3.7 mmol/L3.7 - 5.3 mmol/LMercy Health- [place], KYProtein [Mass/Vol]5.7 g/dLLow6.4 - 8.3 g/dLMercy Health- [place], KYSodium [Moles/Vol]142 mmol/L135 - 144 mmol/LMercy Health- [place], [place] Urea nitrogen [Mass/Vol]46 mg/dLHigh8 - 23 mg/dLMercy Health- [place], KYEKG 12 Lead on 64-18-2480Zxtlxs Ozrr25TTSBuyzt Health- [place], KYAtrial Okoj422ANNGupyg Health- [place], KYP Dhqk87ezurqonAesvx Health- [place], KYP-R Rkiojhub875 msMercy Health- [place], [place] Q-T Yrxfdnqb165 msMercy Health- [place], KYQ-T Uouoekwp868 msMercy Health- [place], KYQRS Xvhxeftc32 msMercy Health- [place], KYQRS Khbubijr64 msMercy Health- [place], KYQTc Calculation (Bazett)464 msMercy Health- [place], KYQTc Calculation (Bazett)447 ms [facility]- [place], KYR Rmam77dgickgxRnirk Health- [place], [place] Whgt02avsnbaaYotdm Health- [place], KYT Zeta6wrcdpsuUwpmg Health- [place], KYT [place]-24degreesMercy Health- [place], KYVentricular Ufyt70QOSQiejd Health- [place], KYVentricular Tgct59WFKYunoa Health- [place], KYLactic Acid, POCon 69-95-9121MWN Lactic Acid0.64 mmol/L0.56 - 1.39 mmol/LMercy Health- [place], KYLiver Profileon 95-44-8335Hdgdlgy [Mass/Vol]3.3 g/dL Low3.5-5.2Mhocking valley community hospitaly [facility] Of West CovinaComment on above:Performed By: #### CDP, PFA, CP, GLYHGB #### [facility] [place] [id number] Executive Officer: Savage Jacob, MDAlbumin/Globulin [Mass ratio]1.5 {ratio}Normal 1.0-2.5[facility] Medical CenterComment on above:Performed By: #### CDP, PFA, CP, GLYHGB #### [facility] [address] [place] [address] Executive Officer: Yanna Barahonakaline Phos57 U/BMjaqpy46-577OzibeUniversity Hospitals Beachwood Medical CenterComment on above:Performed By: #### CDP, PFA, CP, GLYHGB #### [facility] [address] [place] [address] Executive Officer: Savage Jacob MDALT [Catalytic activity/Vol]17 U/LNormal5-33 [facility] CenterComment on above:Performed By: #### CDP, PFA, CP, GLYHGB #### [address] [address] Executive Officer: Savage Jacob MDAST [Catalytic activity/Vol]31 U/LNormal<32[facility] Medical CenterComment on above:Performed By: #### CDP, PFA, CP, GLYHGB #### [facility] [address] [place] [address] Executive Officer: Savage Jacob MDBilirubin Ql (U)0.38 mg/dLNormal0.3-1.2MEmanate Health/Foothill Presbyterian HospitalComment on above:Performed By: #### CDP, PFA, CP, GLYHGB #### [facility] [address] [place] [address] Executive Officer: Sammie Barahonairubin, Indirect0.25 mg/dLNormal0.00-1.00 [facility] CenterComment on above:Performed By: #### CDP, PFA, CP, GLYHGB #### [facility] [employer] [address] [place] [address] Executive Officer: Savage Madoff, MDBilirubin.direct [Mass/Vol]0.13 mg/dLNormal<0.31 [facility] CenterComment on above:Performed By: #### CDP, PFA, CP, GLYHGB #### [facility] [address] [place] [address] Executive Officer: Savage Jacob MDProtein [Mass/Vol]5.5 g/dLLow6.4-8.3MEmanate Health/Foothill Presbyterian HospitalComment on above:Performed By: #### CDP, PFA, CP, GLYHGB #### [facility] [address] [place] [address] Executive Officer: Savage Jacob MDGlobulin (S) [Mass/Vol]NOT REPORTEDNormal1.5-3.8 [facility] CenterComment on above:Performed By: #### CDP, PFA, CP, GLYHGB #### [facility] [address] [place] [address] Executive Officer: Miles Barahonagnesiumon [id number] [Mass/Vol]2.3 mg/dLNormal1.6-2.6MEmanate Health/Foothill Presbyterian HospitalComment on above:Performed By: #### CDP, PFA, CP, GLYHGB #### [facility] [employer] [address] [place] [address] Executive Officer: Miles Barahonagnesium [Mass/Vol]2.3 mg/dL1.6 - 2.6 mg/dL [facility], OROtheron 05-55-0327Jycqpbrtwkkaty and review of laboratory resultsAbnoTriHealth Good Samaritan Hospital, [facility], [facility], [place] Interpretation and review of laboratory resultsAbnoCommunity Regional Medical Center Glucose Fingerstickon 58-60-8517Wnrfprbyxpojgq and review of laboratory results [facility], ORPO Jsptycn122 mg/wJPcjv17 - 105 mg/dLAlexander, KYInterpretation and review of laboratory resultsAbFulton County Health Center Htayftu657 mg/eEDavo68 - 105 mg/dLUniversity Hospitals [facility], KYInterpretation and review of laboratory resultsAbnormOrangeburg, KYPO Xexkrda180 mg/dLHigh 65 - 105 mg/dLUniversity [facility]als [facility], KYPOTASSIUM (POC)on 78-02-1924WSW Potassium3.7 mmol/L3.5 - 4.5 mmol/LMhocking valley community hospitaly [facility], KYPTon 05-48-9755BAB Coag (PPP) [Relative time]1.8 {INR}NormalUniversity Hospitals Beachwood Medical CenterComment on above: Result Comment: Therapeutic Range: Moderate Anticoagulant Intensity: INR = 2.0-3.0 High Anticoagulant Intensity: INR = 2.5-3.5Performed By: #### CDP, PFA, CP, GLYHGB #### [employer] [address] [place] [address] Executive Officer: RIGO Barahona Coag (PPP) [Time]18.4 sHigh9.0-12.0[facility] Hospitals Beachwood Medical CenterComment on above:Performed By: #### CDP, PFA, CP, GLYHGB #### [employer] [address] [place] [address] Executive Officer: Pramod Barahonahoyamini 07-77-5767Ynqefoann [Mass/Vol]2.4 mg/dLLow2.6 - 4.5 mg/dLUniversity Hospitals Geneva [facility] Center, KYPhosphorus, Inorg.on 07-09-2019 Phosphorus, Inorg.2.4 mg/dLLow2.6-4.5[facility] Hospitals Beachwood Medical CenterComment on above:Performed By: #### CDP, PFA, CP, GLYHGB #### [employer] [address] [place] [address] Executive Officer: HALEY Barahonarotime-INRon [id number] Coag (PPP) [Relative time]1.8 {INR}[facility], KYInterpretation and review of laboratory resultsAbnoPhoenix, KYPT Coag (PPP) [Time]18.4 [facility], KYTriglycerideson [id number] [Mass/Vol]95 mg/dLNormal<150University Hospitals Beachwood Medical CenterComment on above:Result Comment: Triglyceride Guidelines: <150 Desirable 150-199 Borderline 200-499 High >499 Very high Based on AHA Guidelines for fasting triglyceride, February 2012.Performed By: #### CDP, PFA, CP, GLYHGB #### [employer] [address] [place] [address] Executive Officer: Savage Jacob MDTriglyceride [Mass/Vol]95 mg/dL<150[facility], KYXR CHEST PORTABLEon 29-83-3069MV CHEST PORTABLEEXAMINATION: ONE XRAY VIEW OF THE [...] Signed by: Loki العلي MD 07/09/19 Final resultNormalMarietta Memorial Hospital, [facility], [facility], KYAMMONIAon 15-21-4662Mldydjd (P) [Mass/Vol]40 umol/L11 - 51 umol/LMOur Lady of [facility] [place], KYArterial Blood Gas, POCon 07-08-2019 Graham TestNOT [facility], RMDST338.0[facility], KYModeNOT REPORTEDMercy Health- [place], KYNegative Base Excess, ArtNOT REPORTEDMercy Health- [place], ORO2 Device/Flow/%BIPAPMercy Health- [place], [facility] UVG773.8 mmol/L21 - 28 mmol/L [facility], ORPO O2 SAT96 %94 - 98 %[facility], [facility] yJU273.5[facility], [facility] pCO2 TempNOT REPORTEDmm HgMercy Health- [place], ORPOC pH7.380 [facility], ORPO pH TempNOT REPORTEDMercy Health- [place], ORPOC PO286.9[facility] [place], ORPO pO2 TempNOT REPORTEDmm HgMercy Health- [place], ORPositive Base Excess, Cun3[facility]- [place], KYPt TempNOT REPORTEDMercy Health- [place], [facility] SiteNOT REPORTEDMercy Health- [place], ORTCO2 (calc), Art27 mmol/L22 - 29 mmol/LMercy Health- [place], [facility]en TestNOT REPORTEDMercy Health- [place], DMSTM425.0[facility], KYModeNOT REPORTEDMercy Health- [place], KYNegative Base Excess, Ich6Ykrlx Health- [place], ORO2 Device/Flow/%BIPAPMercy Health- [place], [facility] SGT509.2 mmol/L21 - 28 mmol/LMercy Health- [place], [facility] O2 SAT96 %94 - 98 %[facility] [place], [facility] pCO2 43.6[facility], [facility] pCO2 TempNOT REPORTEDmm HgMercy Health- [place], [facility] pH 7.351[facility]- [place], ORPO pH TempNOT REPORTEDMercy Health- [place], [facility] PO286.3 [facility], [facility] pO2 TempNOT REPORTEDmm HgMercy Health- [place], ORPositive Base Excess, ArtNOT REPORTEDMercy Health- [place], KYPt TempNOT REPORTEDMer[facility]- [place], [facility] SiteNOT REPORTEDMercy [facility]- [place], ORTCO2 (calc), Art26 mmol/L22 - 29 mmol/LMercy Health- [place], [facility] METABOLIC PANELon 60-81-6715Dmydn gap [Moles/Vol]16 mmol/L9 - 17 mmol/LMercy Health- [place], KYBun/Cre RatioNOT REPORTED [facility] [place], KYCalcium [Mass/Vol]8.5 mg/dLLow8.6 - 10.4 mg/dLMercy Health- [place], KYChloride [Moles/Vol]107 mmol/L98 - 107 mmol/LMercy Health- [place], KYCO2 [Moles/Vol]22 mmol/L20 - 31 mmol/LMer[facility]- [place], KYCreatinine [Mass/Vol]1.48 mg/dLHigh0.5 - 0.9 mg/dLMercy Health- [place], KYGFR Hkmqswne54 mL/minLow>60 [facility] [place], KYGFR CommentMercy Health- [place], KYGFR Non- Eolocpat57 mL/minLow>60[facility] [place], KYGFR StagingNOT REPORTEDMercy Health- [place], [place] Glucose [Mass/Vol]195 mg/eUUkbz30 - 99 mg/dLMercy Health- [place], KYInterpretation and review of laboratory resultsAbnormalMercy Health- [place], KYPotassium [Moles/Vol]3.6 mmol/LLow3.7 - 5.3 mmol/LMer[facility]- [place], KYSodium [Moles/Vol] 145 mmol/LKyqt034 - 144 mmol/LMercy Health- [place], KYUrea nitrogen [Mass/Vol]48 mg/dLHigh8 - 23 mg/dLMercy Health- [place], KYBasic Metabolic Panelon 75-39-8584Gjjbm gap [Moles/Vol]15 mmol/L9 - 17 mmol/LMercy Health- [place], KYBun/Cre RatioNOT REPORTEDMercy Health- [place], KYCalcium [Mass/Vol]8.4 mg/dLLow8.6 - 10.4 mg/dLMercy Health- [place], KYChloride [Moles/Vol]104 mmol/L98 - 107 mmol/LMercy Health- [place], [place] CO2 [Moles/Vol]22 mmol/L20 - 31 mmol/LMer[facility]- [place], KYCreatinine [Mass/Vol] 1.62 mg/dLHigh0.5 - 0.9 mg/dLMercy Health- [place], KYGFR Sujhtzyt09 mL/min Low>60[facility] [place], KYGFR CommentMercy Health- [place], KYGFR Non- Saccigai81 mL/minLow>60[facility], KYGFR StagingNOT REPORTEDUniversity Hospitals [facility], KYGlucose [Mass/Vol]185 mg/rZZeki86 - 99 mg/dLUniversity [facility]als [facility], [place] Interpretation and review of laboratory resultsAbnormalUniversity Hospitals [facility], [place] Potassium [Moles/Vol]4.1 mmol/L3.7 - 5.3 mmol/LMOur Lady of [facility] [place], KYSodium [Moles/Vol]141 mmol/L135 - 144 mmol/LMOur Lady of [facility] [place], KYUrea nitrogen [Mass/Vol]52 mg/dLHigh8 - 23 mg/dLUniversity [facility], KYBasic Metabolic Profon 07-08-2019(cont.)[facility] - ColumbusComment on above:Result Comment: Average GFR for 70 or more years old: 75 mL/min/1.73sq m Chronic Kidney Disease: <60 mL/min/1.73sq m Kidney failure: <15 mL/min/1.73sq m eGFR calculated using average adult body mass. Additional eGFR calculator available at: http://www.[employer].[facility]/multiple_crcl_2012.htmPerformed By: #### CDP, PFA, CP, GLYHGB #### [employer] [address] [place] [address] Executive Officer: Savage Jacob MDAnion gap [Moles/Vol]16 mmol/LNormal9-17[facility] Beachwood Medical CenterComment on above:Performed By: #### CDP, PFA, CP, GLYHGB #### [employer] [address] [place] [address] Executive Officer: CASEY Barahonaalcium [Mass/Vol]8.5 mg/dLLow8.6-10.4[facility] Beachwood Medical CenterComment on above:Performed By: #### CDP, PFA, CP, GLYHGB #### [employer] [facility] [place], [place] [id number] Executive Officer: Savage Madoff, MDChloride [Moles/Vol]107 mmol/FGubyrb87-635CipvxUniversity Hospitals Beachwood Medical CenterComment on above:Performed By: #### CDP, PFA, CP, GLYHGB #### [address] [address] Executive Officer: Savage Jacob MDCO2 [Moles/Vol]22 mmol/JIgxokn53-30PphxsUniversity Hospitals Beachwood Medical CenterComment on above:Performed By: #### CDP, PFA, CP, GLYHGB #### [place] [address] Executive Officer: CASEY Barahonareatinine [Mass/Vol]1.48 mg/dLHigh0.50-0.90 [facility] Beach[facility] Medical CenterComment on above:Performed By: #### CDP, PFA, CP, GLYHGB #### [place] [address] Executive Officer: Savage Jacob MDGFR, Amer42 mL/minLow>60[facility] Medical CenterComment on above:Performed By: #### CDP, PFA, CP, GLYHGB #### [address] [address] Executive Officer: Savage Jacob MDGFR,non Amer35 mL/minLow>60[facility] Beach[facility] Medical CenterComment on above:Performed By: #### CDP, PFA, CP, GLYHGB #### [facility] [employer] [address] [place] [address] Executive Officer: Savage Jacob MDGlucose [Mass/Vol]195 mg/zAXydj88-79ZoqxzEmanate Health/Foothill Presbyterian HospitalComment on above:Performed By: #### CDP, PFA, CP, GLYHGB #### [facility] [employer] [address] [place] [address] Executive Officer: HALEY Barahonaotassium [Moles/Vol]3.6 mmol/LLow3.7-5.3[facility] Hospital Of West CovinaComment on above:Performed By: #### CDP, PFA, CP, GLYHGB #### [facility] [address] [place] [address] Executive Officer: ZANA Barahonaodium [Moles/Vol]145 mmol/RKjfs510-945GpjzcUniversity Hospitals Beachwood Medical CenterComment on above:Performed By: #### CDP, PFA, CP, GLYHGB #### [facility] [address] [place] [address] Executive Officer: Savage Jacob MDUrea nitrogen [Mass/Vol]48 mg/dLHigh8-23[facility] Beach[facility] Medical CenterComment on above:Performed By: #### CDP, PFA, CP, GLYHGB #### [address] [address] Executive Officer: Savage Jacob MDBUCoco/CRE CyrusOT REPORTEDNormal9-20[facility] Beachwood Medical CenterComment on above:Performed By: #### CDP, PFA, CP, GLYHGB #### [address] [address] Executive Officer: ZANA Barahonataging:NOT REPORTEDNormalUniversity Hospitals Beachwood Medical CenterComment on above:Performed By: #### CDP, PFA, CP, GLYHGB #### [address] [address] Executive Officer: Savage Jacob MD(cont.)[facility] Comment on above:Result Comment: Average GFR for 70 or more years old: 75 mL/min/1.73sq m Chronic Kidney Disease: <60 mL/min/1.73sq m Kidney failure: <15 mL/min/1.73sq m eGFR calculated using average adult body mass. Additional eGFR calculator available at: http://www.[employer].com/multiple_crcl_2012.htmPerformed By: #### CDP, PFA, CP, GLYHGB #### [facility] [facility] [place] [address] Executive Officer: Savage Jacob MDAnion gap [Moles/Vol]15 mmol/LNormal9-17[facility] Medical CenterComment on above:Performed By: #### CDP, PFA, CP, GLYHGB #### [facility] [employer] [address] [place] [address] Executive Officer: Savage Jacob MDCalcium [Mass/Vol]8.4 mg/dLLow8.6-10.4[facility] Medical CenterComment on above:Performed By: #### CDP, PFA, CP, GLYHGB #### [facility] [employer] [address] [place] [address] Executive Officer: Savage Jacob MDChloride [Moles/Vol]104 mmol/LLaojwh25-029SpbkrUniversity Hospitals Beachwood Medical CenterComment on above:Performed By: #### CDP, PFA, CP, GLYHGB #### [facility] [employer] [address] [place] [address] Executive Officer: Savage Jacob MDCO2 [Moles/Vol]22 mmol/UInioct33-03OlumvUniversity Hospitals Beachwood Medical CenterComment on above:Performed By: #### CDP, PFA, CP, GLYHGB #### [facility] [employer] [address] [place] [address] Executive Officer: Savage Jacob MDCreatinine [Mass/Vol]1.62 mg/dLHigh0.50-0.90 [facility] Medical CenterComment on above:Performed By: #### CDP, PFA, CP, GLYHGB #### [facility] [employer] [address] [place] [address] Executive Officer: SALLY Barahona, Amer38 mL/minLow>60[facility] Medical CenterComment on above:Performed By: #### CDP, PFA, CP, GLYHGB #### [employer] [address] [place] [address] Executive Officer: Savage Jacob MDGFR,non Amer31 mL/minLow>60[facility] Medical CenterComment on above:Performed By: #### CDP, PFA, CP, GLYHGB #### [facility] [address] [place] [address] Executive Officer: Savage Jacob MDGlucose [Mass/Vol]185 mg/bXGkcc75-13RiwybEmanate Health/Foothill Presbyterian HospitalComment on above:Performed By: #### CDP, PFA, CP, GLYHGB #### [address] [address] Executive Officer: HALEY Barahonaotassium [Moles/Vol]4.1 mmol/LNormal3.7-5.3 [facility] Medical CenterComment on above:Performed By: #### CDP, PFA, CP, GLYHGB #### [address] [address] Executive Officer: ZANA Barahonaodium [Moles/Vol]141 mmol/BGapgzm905-083LgocaUniversity Hospitals Beachwood Medical CenterComment on above:Performed By: #### CDP, PFA, CP, GLYHGB #### [address] [address] Executive Officer: Savage Jacob MDUrea nitrogen [Mass/Vol]52 mg/dLHigh8-23[facility] Medical CenterComment on above:Performed By: #### CDP, PFA, CP, GLYHGB #### [address] [address] Executive Officer: FELICITY Barahona/SHALINI Ziegler REPORTEDNormal9-20[facility] Medical CenterComment on above:Performed By: #### CDP, PFA, CP, GLYHGB #### [facility] [employer] [address] [place] [address] Executive Officer: ZANA Barahonataging:NOT REPORTEDNormalUniversity Hospitals Beachwood Medical CenterComment on above:Performed By: #### CDP, PFA, CP, GLYHGB #### [facility] [employer] [address] [place] [address] Executive Officer: CASEY Barahonastarla 40-80-0455Wuznufjjdct distribution width (RBC) [Ratio]15.5 %High11.8-14.4[facility] Medical CenterComment on above:Performed By: #### CDP, PFA, CP, GLYHGB #### [place] [address] Executive Officer: Savage Jacob MDHematocrit (Bld) [Volume fraction]27.0 %Low 36.3-47.1MEmanate Health/Foothill Presbyterian HospitalComment on above:Performed By: #### CDP, PFA, CP, GLYHGB #### [facility] [employer] [address] [place] [address] Executive Officer: Savage Jacob MDHemoglobin (Bld) [Mass/Vol]8.4 g/dLLow11.9-15.1 [facility] Medical CenterComment on above:Performed By: #### CDP, PFA, CP, GLYHGB #### [place] [address] Executive Officer: ALISSA BarahonaCH (RBC) [Entitic mass]28.4 chFkwphy17.2-33.5 [facility] Medical CenterComment on above:Performed By: #### CDP, PFA, CP, GLYHGB #### [facility] [employer] [address] [place] [address] Executive Officer: ALISSA BarahonaCHC (RBC) [Mass/Vol]31.1 g/rXQbhsqi55.4-34.8 [facility] CenterComment on above:Performed By: #### CDP, PFA, CP, GLYHGB #### [facility] [employer] [address] [place] [address] Executive Officer: DIANA Barahona (RBC) [Entitic vol]91.2 zBVcgsdg72.6-102.9 [facility] Medical CenterComment on above:Performed By: #### CDP, PFA, CP, GLYHGB #### [address] [address] Executive Officer: ILANA Barahona Automated0.5 per 100 WBCHigh0.0[facility] Beachwood Medical CenterComment on above:Performed By: #### CDP, PFA, CP, GLYHGB #### [address] [address] Executive Officer: Taylor Barahonatemartine mean volume (Bld) [Entitic vol]9.7 fL Normal8.1-13.5[facility] Medical CenterComment on above:Performed By: #### CDP, PFA, CP, GLYHGB #### [address] [address] Executive Officer: Taylor Barahonatejimbo (Bld) [#/Vol]151 10*3/cCQpieek282-255 [facility] Medical CenterComment on above:Performed By: #### CDP, PFA, CP, GLYHGB #### [address] [address] Executive Officer: ISABELLE BarahonaBC (Bld) [#/Vol]2.96 10*6/uLLow3.95-5.11[facility] Medical CenterComment on above:Performed By: #### CDP, PFA, CP, GLYHGB #### [facility] [employer] [address] [place] [address] Executive Officer: PETR Barahona (Bld) [#/Vol]11.1 10*3/uLNormal3.5-11.3Mer[facility] Hospital Of West CovinaComment on above:Performed By: #### CDP, PFA, CP, GLYHGB #### [facility] [address] [place] [address] Executive Officer: Savage Jacob MDErythrocyte distribution width (RBC) [Ratio]15.5 %High11.8 - 14.4 %[facility], ORHematocrit (Bld) [Volume fraction]27.0 % Low36.3 - 47.1 %[facility], ORHemoglobin (Bld) [Mass/Vol]8.4 g/dLLow11.9 - 15.1 g/dLUniversity Hospitals [facility], ORInterpretation and review of laboratory results AbnormalUniversity Hospitals Geneva [facility] Center, ORMCH (RBC) [Entitic mass]28.4 pg25.2 - 33.5 pgUniversity Hospitals Geneva Medical Center, ORMCHC (RBC) [Mass/Vol]31.1 g/dL28.4 - 34.8 g/dLUniversity Hospitals Geneva [facility] Center, [place] MCV (RBC) [Entitic vol]91.2 fL82.6 - 102.9 fLAlexander, KYPlatelet mean volume (Bld) [Entitic vol]9.7 fL8.1 - 13.5 fLUniversity Hospitals Geneva Medical Center, ORPlatelets (Bld) [#/Vol]151 10*3/[facility], ORRBC (Bld) [#/Vol]2.96 10*6/uLLow3.95 - 5.11 m/[facility], ORWBC (Bld) [#/Vol]0.5 10*3/uLHigh0.0 per 100 WBC [place], KYWBC (Bld) [#/Vol]11.1 10*3/[facility], ORCT HEAD WO CONTRASTon 91-71-3614MS HEAD WO CONTRASTEXAMINATION: CT OF THE HEAD [...] Signed by: Jesús Clemons MD 07/08/19 Final resultNormalMarietta Memorial Hospital, [facility], [facility], KYHEPATIC FUNCTION PANELon 43-31-7192Kvpwzmm [Mass/Vol]3.3 g/dLLow3.5 - 5.2 g/dLUniversity Hospitals Geneva [facility], ORAlbumin/Globulin [Mass ratio]1.5 {ratio}[facility], KYALP [Catalytic activity/Vol]57 U/L35 - 104 U/LMOur Lady of [facility]cy [facility], KYALT [Catalytic activity/Vol]17 U/L5 - 33 U/[facility], KYAST [Catalytic activity/Vol]31 U/L<32[facility], ORBilirubin Ql (U) 0.38 mg/dL0.3 - 1.2 mg/dLUniversity [facility]als [facility], ORBilirubin, Indirect0.25 mg/dL0 - 1 mg/dLUniversity Hospitals [facility], KYBilirubin.direct [Mass/Vol]0.13 mg/dL<0.31[facility], KYGlobulinNOT REPORTED1.5 - 3.8 g/dLUniversity Hospitals [facility], ORInterpretation and review of laboratory resultsAbnormLakeHealth TriPoint [facility], KYProtein [Mass/Vol]5.5 g/dLLow6.4 - 8.3 g/dLUniversity Hospitals [facility], KYMagnesiumon 10-93-3747Fxebnhufz [Mass/Vol]2.3 mg/dLNormal1.6-2.6[facility] Hospital Of West CovinaComment on above:Performed By: #### CDP, PFA, CP, GLYHGB #### [employer] [address] [place] [address] Executive Officer: Miles Barahonagnesium [Mass/Vol]2.3 mg/dL1.6 - 2.6 mg/dL [facility], [facility] Glucose Fingerstickon 48-19-5532Migsaajtshvouq and review of laboratory resultsAbPomerene Hospital, ORPO Fndccog645 mg/dLHigh 65 - 105 mg/dLUniversity [facility]als [facility], KYInterpretation and review of laboratory resultsAbPomerene Hospital, [facility] Vcbgfjl810 mg/mCXgcw04 - 105 mg/dLUniversity Hospitals [facility], KYInterpretation and review of laboratory resultsAbPomerene Hospital, [facility] Xyewdva042 mg/eZPaau99 - 105 mg/dLUniversity [facility]als [facility], [place] Interpretation and review of laboratory resultsAbnoTriHealth [facility], ORPOC Apykjoh949 mg/nDDbdb56 - 105 mg/dLUniversity Hospitals [facility], ORPOCT Glucoseon 07-08-2019 Interpretation and review of laboratory resultsAbPomerene Hospital, [facility] Kgooubv924 mg/bMJdmc08 - 100 mg/dLUniversity Hospitals [facility], KYPOTASSIUM (POC)on 95-57-4112FWR Potassium3.5 mmol/L3.5 - 4.5 mmol/LMOur Lady of [facility], KYPTon 67-71-6530WQI Coag (PPP) [Relative time]1.7 {INR}NormalUniversity Hospitals Beachwood Medical CenterComment on above:Result Comment: Therapeutic Range: Moderate Anticoagulant Intensity: INR = 2.0-3.0 High Anticoagulant Intensity: INR = 2.5-3.5Performed By: #### CDP, PFA, CP, GLYHGB #### [employer] [address] [place] [address] Executive Officer: RIGO Barahona Coag (PPP) [Time]16.8 sHigh9.0-12.0[facility] Medical CenterComment on above:Performed By: #### CDP, PFA, CP, GLYHGB #### [facility] [address] [place] [address] Executive Officer: Ric Barahonaime-INRon 20-04-4328VML Coag (PPP) [Relative time]1.7 {INR}[facility], KYInterpretation and review of laboratory resultsAbPomerene Hospital, KYPT Coag (PPP) [Time]16.8 [facility], KYXR ABDOMEN FOR NG/OG/NE TUBE PLACEMENTon 87-35-5963ZQ ABDOMEN FOR NG/OG/NE TUBE PLACEMENTEXAMINATION: ONE SUPINE [...] Signed by: Jesús Clemons MD 07/08/19 Final resultNoCommunity Memorial Hospital, [facility], [facility], KYXR CHEST PORTABLEon 42-19-8323UL CHEST PORTABLEEXAMINATION: ONE XRAY VIEW OF THE [...] Signed by: Loki العلي MD 07/08/19 Final resultNormGuernsey Memorial HospitalMer Health- [place], KYMercy Health- [place], KYMercy [facility]- [place], KYAnion Gap (Calc) POCon 44-16-1515Kjjjo gap [Moles/Vol]10 mmol/L7 - 16 mmol/LMercy Health- [place], KYArterial Blood Gas, POCon 67-14-4831Wowxa TestNOT REPORTEDMer Health- [place], AKCVQ368.0[facility], [place] ModeNIVMercy Health- [place], KYNegative Base Excess, Yqk0Xbhtc Health- [place], KYO2 Device/Flow/%NOT REPORTEDKettering [facility] Health- [place], ORPO QNH798.6 mmol/L21 - 28 mmol/L [facility], ORPOC O2 SAT98 %94 - 98 %[facility]- [place], ORPO fLA093.1Mhocking valley [facility] hospitaly [facility]- [place], [facility] pCO2 TempNOT REPORTEDmm HgKettering Health Behavioral Medical Center Health- [place], ORPOC pH7.318Low [facility]- [place], ORPO pH TempNOT REPORTEDKettering Health Behavioral Medical Center Health- [place], ORPOC CS6697.9High [facility]- [place], [facility] pO2 TempNOT REPORTEDmm HgKettering Health Behavior[facility] Center Health- [place], KYPositive Base Excess, ArtNOT REPORTEDMer Health- [place], KYPt TempNOT REPORTEDMer Health- [place], KYSample SiteArterial LineMer Health- [place], KYTCO2 (calc), Art25 mmol/L22 - 29 mmol/LMhocking valley community hospitaly Health- [place], KYAllen TestNOT REPORTEDKettering Health Behavior[facility]- [place], HQSEB434.0 [facility]- [place], ORInterpretation and review of laboratory resultsAbnormalKettering Health [facility] Health- [place], KYModeCPAP/PSMercy Health- [place], KYNegative Base Excess, Swe5Hvflx Health- [place], KYO2 Device/Flow/%Adult VentilatorMer Health- [place], ORPOC XXW311.1 mmol/L21 - 28 mmol/LMhocking valley community hospitaly Health- [place], ORPOC O2 SAT96 %94 - 98 %[facility]- [place], KYPOC pTY578.2[facility]- [place], [facility] pCO2 TempNOT REPORTEDmm HgMercy Health- [place], [facility]C pH7.335LowMercy Health- [place], ORPO pH TempNOT REPORTEDMercy Health- [place], [facility] PO287.5[facility]- [place], [facility] pO2 TempNOT REPORTEDmm HgMercy Health- [place], ORPositive Base Excess, ArtNOT REPORTEDMercy Health- [place], KYPt TempNOT REPORTED [facility] [place], ORSale SiteArterial LineMercy Health- [place], ORTCO2 (calc), Art 26 mmol/L22 - 29 mmol/LMercy Health- [place], ORAllen TestNOT REPORTEDMer[facility]- [place], AVYYQ630.0[facility]- [place], ORModeSIMV(PRVC)+ PSMercy Health- [place], KYNegative Base Excess, Fej0HsahHuqjc Health- [place], ORO2 Device/Flow/%Adult VentilatorMer Health- [place], [facility] PVD678.8 mmol/L21 - 28 mmol/LMercy Health- [place], [facility] O2 SAT96 %94 - 98 %[facility] [place], [facility] hTF284.4[facility], [facility] pCO2 TempNOT REPORTEDmm HgMercy Health- [place], [facility] pH7.351[facility], [facility] pH TempNOT REPORTEDMer Health- [place], [facility] PO286.1[facility], [facility] pO2 TempNOT REPORTEDmm HgMer Health- [place], ORPositive Base Excess, ArtNOT REPORTEDMer[facility]- [place], KYPt TempNOT REPORTEDMer[facility]- [place], [facility]le SiteArterial Line [facility] [place], ORTCO2 (calc), Art23 mmol/L22 - 29 mmol/LMercy Health- [place], [place] Graham TestNOT APPLICABLEMer Health- [place], [id number] REPORTEDMer Health- [place], [place] Interpretation and review of laboratory resultsAbnormalK[facility]- [place], ORMode NOT REPORTEDMer Health- [place], KYNegative Base Excess, Fpd5Zaf[facility]- [place], ORO2 Device/Flow/%Adult VentilatorKettering Health Behavioral Medical [facility]- [place], [facility] GXV572.7 mmol/L21 - 28 mmol/LMercy [facility]- [place], ORPO O2 SAT98 %94 - 98 %[facility]- [place], ORPO pCO2 39.0[facility], [facility] pCO2 TempNOT REPORTEDmm HgMercy Health- [place], ORPOC pH 7.372[facility] [place], ORPOC pH TempNOT REPORTEDMer Health- [place], ORPOC YM3442.8 HighMer Health- [place], ORPO pO2 TempNOT REPORTEDmm HgMer Health- [place], [place] Positive Base Excess, ArtNOT REPORTEDMer [facility]- [place], KYPt TempNOT REPORTED [facility]- [place], ORSample SiteArterial LineMer Health- [place], ORTCO2 (calc), Art 24 mmol/L22 - 29 mmol/LMercy [facility]- [place], ORAllen TestNOT APPLICABLEMer Health- [place], [id number] REPORTEDKettering Health Behavior[facility]- [place], ORModeNOT REPORTEDKettering Health Behavioral [facility]- [place], [place] Negative Base Excess, Khe7SwfeMdzmt Health- [place], ORO2 Device/Flow/%Adult VentilatorMer Health- [place], ORPOC AVR184.1 mmol/L21 - 28 mmol/LMtrinity health system [facility]- [place], ORPO O2 SAT95 %94 - 98 %[facility], [facility] vEX168.8[facility]- [place], [place] POC pCO2 TempNOT REPORTEDmm HgKettering Health Behavioral Medical Center [facility]- [place], [facility] pH7.352[facility] [place], [facility] pH TempNOT REPORTEDKettering Health Behavioral Medical Center [facility]- [place], [facility] PO280.9LowMer Health- [place], [place] POC pO2 TempNOT REPORTEDmm HgMer Health- [place], ORPositive Base Excess, ArtNOT REPORTEDMer [facility]- [place], KYPt TempNOT REPORTEDMer Health- [place], ORSample Site Arterial LineMer Health- [place], ORTCO2 (calc), Art23 mmol/L22 - 29 mmol/LMercy [facility]- [place], ORBasic Metab w/rfx MGon 07-07-2019(cont.)[facility] - ColumbusComment on above:Result Comment: Average GFR for 70 or more years old: 75 mL/min/1.73sq m Chronic Kidney Disease: <60 mL/min/1.73sq m Kidney failure: <15 mL/min/1.73sq m eGFR calculated using average adult body mass. Additional eGFR calculator available at: http://www.[employer].Emergent [facility]/multiple_crcl_2012.htmPerformed By: #### CDP, PFA, CP, GLYHGB #### [address] [address] Executive Officer: Savage Jacob MDAnion gap [Moles/Vol]15 mmol/LNormal9-17[facility]wood Medical CenterComment on above:Performed By: #### CDP, PFA, CP, GLYHGB #### [address] [address] Executive Officer: Savage Jacob MDCalcium [Mass/Vol]8.4 mg/dLLow8.6-10.4[facility] Medical CenterComment on above:Performed By: #### CDP, PFA, CP, GLYHGB #### [address] [address] Executive Officer: Savage Jacob MDChloride [Moles/Vol]105 mmol/CUexfwe79-710PnrsbUniversity Hospitals Beachwood Medical CenterComment on above:Performed By: #### CDP, PFA, CP, GLYHGB #### [facility] [employer] [address] [place] [address] Executive Officer: Savage Jacob MDCO2 [Moles/Vol]21 mmol/HLvtpsm96-08SuvhjUniversity Hospitals Beachwood Medical CenterComment on above:Performed By: #### CDP, PFA, CP, GLYHGB #### [facility] [employer] [address] [place] [address] Executive Officer: Savage Jacob MDCreatinine [Mass/Vol]1.76 mg/dLHigh0.50-0.90 [facility] Medical CenterComment on above:Performed By: #### CDP, PFA, CP, GLYHGB #### [facility] [employer] [address] [place] [address] Executive Officer: Savage Jacob MDGFR, Amer35 mL/minLow>60[facility] Medical CenterComment on above:Performed By: #### CDP, PFA, CP, GLYHGB #### [facility] [address] [place] [address] Executive Officer: Savage Jacob MDGFR,non Amer29 mL/minLow>60[facility] Medical CenterComment on above:Performed By: #### CDP, PFA, CP, GLYHGB #### [facility] [address] [place] [address] Executive Officer: Savage Jacob MDGlucose [Mass/Vol]182 mg/hMUpoh46-36OcrwcEmanate Health/Foothill Presbyterian HospitalComment on above:Performed By: #### CDP, PFA, CP, GLYHGB #### [facility] [address] [place] [address] Executive Officer: HALEY Barahonaotassium [Moles/Vol]4.4 mmol/LNormal3.7-5.3 [facility] Medical CenterComment on above:Performed By: #### CDP, PFA, CP, GLYHGB #### [facility] [address] [place] [address] Executive Officer: ZANA Barahonaodium [Moles/Vol]141 mmol/DQyvkkf610-597XfoldUniversity Hospitals Beachwood Medical CenterComment on above:Performed By: #### CDP, PFA, CP, GLYHGB #### [facility] [address] [place] [address] Executive Officer: Savage Jacob MDUrea nitrogen [Mass/Vol]54 mg/dLHigh8-23[facility] Medical CenterComment on above:Performed By: #### CDP, PFA, CP, GLYHGB #### [facility] [address] [place] [address] Executive Officer: FELICITY Barahona/CRE RatioNOT REPORTEDNormal9-20MerParadise Valley HospitalComment on above:Performed By: #### CDP, PFA, CP, GLYHGB #### [facility] [address] [place], [place] [id number] Executive Officer: ZANA Barahonataging:NOT REPORTEDNormalUniversity Hospitals Beachwood Medical CenterComment on above:Performed By: #### CDP, PFA, CP, GLYHGB #### [facility] [address] [place], [place] [id number] Executive Officer: Chriss Barahonawilliamson arh hospital Metabolic Panelon 45-79-7949Guiuq gap [Moles/Vol]15 mmol/L9 - 17 mmol/LMercy [facility]- [place], KYBun/Cre RatioNOT REPORTED [facility]- [place], KYCalcium [Mass/Vol]8.1 mg/dLLow8.6 - 10.4 mg/dLMercy Health- [place], KYChloride [Moles/Vol]104 mmol/L98 - 107 mmol/LMer[facility]- [place], KYCO2 [Moles/Vol]19 mmol/LLow20 - 31 mmol/LMer[facility]- [place], KYCreatinine [Mass/Vol] 1.67 mg/dLHigh0.5 - 0.9 mg/dLMercy Health- [place], KYGFR Rdvabrit50 mL/min Low>60[facility]- [place], KYGFR CommentMercy Health- [place], KYGFR Non- Dnylpeub11 mL/minLow>60[facility]- [place], KYGFR StagingNOT REPORTEDMer[facility]- [place], KYGlucose [Mass/Vol]139 mg/zHCece97 - 99 mg/dLMercy Health- [place], [place] Interpretation and review of laboratory resultsAbnormalMercy Health- [place], [place] Potassium [Moles/Vol]3.6 mmol/LLow3.7 - 5.3 mmol/LMer[facility]- [place], KYSodium [Moles/Vol]138 mmol/L135 - 144 mmol/LMer[facility]- [place], KYUrea nitrogen [Mass/Vol]55 mg/dLHigh8 - 23 mg/dLMercy Health- [place], KYBasic Metabolic Panel w/ Reflex to MGon 93-07-2174Xvyaj gap [Moles/Vol]15 mmol/L9 - 17 mmol/LMhocking valley community hospitaly [facility]- [place], KYBun/Cre RatioNOT REPORTEDUniversity [facility], KYCalcium [Mass/Vol]8.4 mg/dLLow8.6 - 10.4 mg/dLUniversity Hospitals Geneva [facility] Center, KYChloride [Moles/Vol]105 mmol/L98 - 107 mmol/LMWVUMedicine Harrison [facility] Hospital [place], KYCO2 [Moles/Vol]21 mmol/L20 - 31 mmol/LMWVUMedicine Harrison Community Hospital [place], KYCreatinine [Mass/Vol]1.76 mg/dLHigh0.5 - 0.9 mg/dLUniversity Hospitals [facility], KYGFR Ayourztr88 mL/minLow>60[facility], KYGFR CommentUniversity Hospitals Geneva Medical Center, KYGFR Non- Gjrvktyu87 mL/minLow>60[facility], KYGFR StagingNOT REPORTEDUniversity Hospitals [facility], KYGlucose [Mass/Vol]182 mg/kWShst29 - 99 mg/dLUniversity Hospitals Geneva Medical Center, KYInterpretation and review of laboratory resultsAbnormal [facility], KYPotassium [Moles/Vol]4.4 mmol/L3.7 - 5.3 mmol/LMWVUMedicine Harrison Community Hospital [place], KYSodium [Moles/Vol]141 mmol/L135 - 144 mmol/LMWVUMedicine Harrison [facility] [place], KYUrea nitrogen [Mass/Vol]54 mg/dLHigh8 - 23 mg/dLUniversity Hospitals Geneva Medical Center, KYSaint [facility] Metabolic Profon 07-07-2019(cont.)[facility] - ColumbusComment on above: Result Comment: Average GFR for 70 or more years old: 75 mL/min/1.73sq m Chronic Kidney Disease: <60 mL/min/1.73sq m Kidney failure: <15 mL/min/1.73sq m eGFR calculated using average adult body mass. Additional eGFR calculator available at: http://www.[employer]/multiple_crcl_2012.htmPerformed By: #### TYS #### [facility]Pro[facility] [address] [place] [address] Executive Officer: Savage Jacob MDAnion gap [Moles/Vol]15 mmol/LNormal9-17[facility] Medical CenterComment on above:Performed By: #### TYS #### [address] [address] Executive Officer: Savage Jacob MDCalcium [Mass/Vol]8.1 mg/dLLow8.6-10.4[facility] Medical CenterComment on above:Performed By: #### TYS #### [address] [address] Executive Officer: Savage Jacob MDChloride [Moles/Vol]104 mmol/AKvxqei10-333IvycpUniversity Hospitals Beachwood Medical CenterComment on above:Performed By: #### TYS #### [address] [address] Executive Officer: Savage Jacob MDCO2 [Moles/Vol]19 mmol/XVwl58-53BlciuUniversity Hospitals Beachwood Medical CenterComment on above:Performed By: #### TYS #### [address] [address] Executive Officer: Savage Jacob MDCreatinine [Mass/Vol]1.67 mg/dLHigh0.50-0.90 [facility] Medical CenterComment on above:Performed By: #### TYS #### [address] [address] Executive Officer: SALLY Barahona, Amer37 mL/minLow>60[facility] Medical CenterComment on above:Performed By: #### TYS #### [address] [address] Executive Officer: SALLY Barahona,non Amer30 mL/minLow>60[facility] Medical CenterComment on above:Performed By: #### TYS #### [address] [address] Executive Officer: Savage Jcaob MDGlucose [Mass/Vol]139 mg/hOYfts95-37ZogbbEmanate Health/Foothill Presbyterian HospitalComment on above:Performed By: #### TYS #### [address] [address] Executive Officer: Savage Jacob MDPotassium [Moles/Vol]3.6 mmol/LLow3.7-5.3[facility] Doctors Hospital Of West CovinaComment on above:Performed By: #### TYS #### [address] [address] Executive Officer: ZANA Barahonaodium [Moles/Vol]138 mmol/PNoccpe193-806UdpkvUniversity Hospitals Beachwood Medical CenterComment on above:Performed By: #### TYS #### [address] [address] Executive Officer: Savage Jacob MDUrea nitrogen [Mass/Vol]55 mg/dLHigh8-23[facility] Medical CenterComment on above:Performed By: #### TYS #### [address] [address] Executive Officer: Savage Jacob MDBUN/CRE RatioNOT REPORTEDNormal9-20[facility] Medical CenterComment on above:Performed By: #### TYS #### [address] [address] Executive Officer: ZANA Barahonataging:NOT REPORTEDNormalUniversity Hospitals Beachwood Medical CenterComment on above:Performed By: #### TYS #### [address] [address] Executive Officer: CASEY BarahonaALCIUM, IONIC (POC)on 30-22-5939SHE Ionized Calcium1.11 mmol/LLow1.15 - 1.33 mmol/LMercy Health- [place], KYPOC Ionized Calcium 1.14 mmol/LLow1.15 - 1.33 mmol/[facility], KYCBCon 05-31-5133JUSC Automated1.0 per 100 WBCHigh0.0[facility] Medical CenterComment on above: Performed By: #### TYS #### [facility] [employer] [address] [place] [address] Executive Officer: Savage Jacob MDErythrocyte distribution width (RBC) [Ratio]15.7 %High11.8-14.4[facility], KYComment on above:Performed By: #### TYS #### [facility] [employer] [address] [place] [address] Executive Officer: Savage Jacob MDHematocrit (Bld) [Volume fraction]27.7 %Low 36.3-47.1MOur Lady of [facility]cy [facility] - [place], KYComment on above:Performed By: #### TYS #### [facility] [employer] [address] [place] [address] Executive Officer: Savage Jacob MDHemoglobin (Bld) [Mass/Vol]8.9 g/dLLow11.9-15.1 [facility], KYComment on above:Performed By: #### TYS #### [facility] [employer] [address] [place] [address] Executive Officer: ALISSA BarahonaCH (RBC) [Entitic mass]28.8 aoMhgbcb34.2-33.5 [facility], KYComment on above:Performed By: #### TYS #### [facility] [employer] [address] [place] [address] Executive Officer: JAIME BarahonaC (RBC) [Mass/Vol]32.1 g/kVGyfwuz10.4-34.8 [facility], KYComment on above:Performed By: #### TYS #### [address] [address] Executive Officer: ALISSA BarahonaCV (RBC) [Entitic vol]89.6 aGVkslir53.6-102.9 [facility] on above:Performed By: #### TYS #### [address] [address] Executive Officer: Taylor Barahonatelet mean volume (Bld) [Entitic vol]10.4 fL Normal8.1-13.5[facility] on above:Performed By: #### TYS #### [address] [address] Executive Officer: HALEY Barahonalatelets (Bld) [#/Vol]135 10*3/pSVsx354-311 [facility] on above:Performed By: #### TYS #### [address] [address] Executive Officer: Savage Jacob MDRBC (Bld) [#/Vol]3.09 10*6/uLLow3.95-5.11[facility] on above:Performed By: #### TYS #### [address] [address] Executive Officer: Savage Jacob MDWBC (Bld) [#/Vol]15.2 10*3/uLHigh3.5-11.3MAvera Holy Family Hospital on above:Performed By: #### TYS #### [facility] [employer] [address] [place] [address] Executive Officer: Savage Jacob MDInterpretation and review of laboratory results AbnormalAlexander, KYWBC (Bld) [#/Vol]1.0 10*3/uLHigh0.0 per 100 WBCAlexander, KYCHLORIDE (POC)on 21-95-0050OEK Phwlhryi491 mmol/LHigh98 - 107 mmol/LMer[facility]- [place], KYCreatinine W/GFR Point of Careon 48-42-1332PTD Comment 41 mL/minLow>60[facility]- [place], KYGFR CommentMercy Health- [place], KYGFR Non- Zmbjlrxv45 mL/minLow>60[facility]- [place], KYPOC Creatinine1.53 mg/dLHigh 0.51 - 1.19 mg/dLMercy Health- [place], KYEKG 12 Leadon 45-74-8198Bozkze Eujt256YKJ [facility]- [place], KYQ-T Hykhebbj128 msMercy Health- [place], KYQRS Fxunlnqv30 msMercy Health- [place], KYQTc Calculation ()408 msMercy [facility]- [place], KYR Wajo01vgmctpc [facility]- [place], KYT [place]-126degreesMercy Health- [place], KYVentricular Kecj729JDW [facility]- [place], KYMer[facility]- [place], KYMercy [facility]- [place], KYAtrial Odsi32EIN [facility]- [place], KYP Dgos35etulljiPtdhu Health- [place], KYP-R Wtfukpnc977 msMercy Health- [place], KYQ-T Nujvyzqu803 msMercy [facility]- [place], KYQRS Fblnrcei294 msMercy [facility]- [place], KYQTc Calculation ()509 msMercy [facility]- [place], KYR Mghw87nlwelfk [facility]- [place], KYT [place]-44degreesMercy Health- [place], KYVentricular Gwlm97SIM [facility]- [place], KYMercy [facility]- [place], KYMercy Health- [place], KYEchocardiogram Limited 2D Adulton 93-32-2237Ubazb Health- [place], KYMercy Health- [place], KYHemoglobin and hematocrit, bloodon 69-42-9342NGD Rvpeqvgjpm12 %Low36 - 46 %[facility]- [place], KYPOC Hemoglobin8.0 g/dLLow12 - 16 g/dLMercy Health- [place], KYLactic Acid, POC on 64-16-1182UWF Lactic Acid0.51 mmol/LLow0.56 - 1.39 mmol/LMercy Health- [place], [place] Magnesiumon 30-13-4859Rwkyjbkdo [Mass/Vol]2.3 mg/dLNormal1.6-2.6Mer[facility] Hospital Of West CovinaComment on above:Performed By: #### TYS #### [facility] [address] [phone] Executive Officer: Savage Jacob, MDMagnesium [Mass/Vol]2.3 mg/dL1.6 - 2.6 mg/dL [facility], KYOtheron 43-56-1346Pchjkxbejeuyoz and review of laboratory resultsAbnoTriHealth Good Samaritan Hospital, KYInterpretation and review of laboratory resultsAbnoTriHealth Good Samaritan Hospital, KYInterpretation and review of laboratory resultsAbnoTriHealth Good Samaritan Hospital, [facility] Glucose Fingerstickon 07-07-2019 Interpretation and review of laboratory resultsAbnoTriHealth Good Samaritan Hospital, ORPOC Lroatdb144 mg/yNIazl09 - 105 mg/dLUniversity Hospitals Geneva [facility], KYInterpretation and review of laboratory resultsAbPomerene Hospital, KYPOC Ijvaibr731 mg/sYWfep90 - 105 mg/dLUniversity Hospitals Geneva [facility], KYInterpretation and review of laboratory results AbnormalUniversity Hospitals Geneva Medical Center, KYPOC Trpmosw204 mg/aMMleo04 - 105 mg/dLUniversity Hospitals Geneva [facility] Center, KYInterpretation and review of laboratory resultsAbnoTriHealth Good Samaritan Hospital, KYPOC Uczmypi047 mg/iSPfgk26 - 105 mg/dLUniversity Hospitals Geneva Medical Center, KYPOCT Glucoseon 34-58-1195TLN Faksicw350 mg/oVEhgg97 - 100 mg/dLUniversity Hospitals Geneva [facility] Center, KYPOC Glucose 165 mg/rMLtgr07 - 100 mg/dLUniversity Hospitals Geneva Medical Center, KYPOC Unfpwqk204 mg/xKGkko02 - 100 mg/dLUniversity Hospitals Geneva Medical Center, KYPOTASSIUM (POC)on 73-32-8631ZIS Potassium3.5 mmol/L3.5 - 4.5 mmol/LMOur Lady of [facility], KYPOC Potassium3.7 mmol/L3.5 - 4.5 mmol/LMOur Lady of [facility], KYPOC Potassium3.3 mmol/LLow3.5 - 4.5 mmol/LMOur Lady of [facility], KYPTon 27-13-4568NPR Coag (PPP) [Relative time]1.2 {INR}NormalUniversity Hospitals Beachwood Medical CenterComment on above:Result Comment: Therapeutic Range: Moderate Anticoagulant Intensity: INR = 2.0-3.0 High Anticoagulant Intensity: INR = 2.5-3.5Performed By: #### TYS #### [facility] [address], [place] [phone] Executive Officer: HALEY BarahonaT Coag (PPP) [Time]12.8 sHigh9.0-12.0[facility] Beachwood Medical CenterComment on above:Performed By: #### TYS #### [facility] [address] [place] [address] [phone] Executive Officer: HALEY Barahonarotime-INRon 56-53-8159ZBI Coag (PPP) [Relative time]1.2 {INR}[facility]- [place], KYInterpretation and review of laboratory resultsAbnormKing's Daughters Medical Center [place]- [place], KYPT Coag (PPP) [Time]12.8 sHigSelect Medical Specialty Hospital - [facility]on- [place], KYSODIUM (POC)on 18-18-7161VSA Cnpaff573 mmol/L138 - 146 mmol/LMercy Health- [place], KYVancomycin, Randomon 07-48-2606Hnmqxhkdxb Random Date last doseNOT REPORTEDK[facility]tering Health [facility] Health- [place], KYVancomycin Random Dose amountNOT REPORTEDKettering Health Behavioral Medical Center Health- [place], KYVancomycin Random Time last doseNOT REPORTEDSt. [facility]- [place], [place] Vancomycin Rm17.2 ug/mLSt. Mary'[facility]- [place], KYVancomycin,Randomon 07-07-2019 Nuchzfjxfz23.2 ug/mLNormalUniversity Hospitals Beachwood Medical CenterComment on above: Result Comment: Higher trough serum vancomycin concentrations of 15-20 ug/mL are recommended for complicated infections such as bacteremia, endocarditis, osteomyelitis, meningitis, and hospital acquired pneumonia.Performed By: #### CDP, PFA, CP, GLYHGB #### [facility] [address] [place] [address] [phone] Executive Officer: FARIBA Barahonaate last dose,NOT REPORTEDNormGuernsey Memorial HospitalComment on above:Performed By: #### CDP, PFA, CP, GLYHGB #### [facility] [address] [place] [address] Executive Officer: FARIBA Barahonaose amount,NOT REPORTEDNormGuernsey Memorial HospitalComment on above:Performed By: #### CDP, PFA, CP, GLYHGB #### [facility] [address] [place] [address] Executive Officer: Savage Jacob MDTime last dose,NOT REPORTEDNormGuernsey Memorial HospitalComment on above:Performed By: #### CDP, PFA, CP, GLYHGB #### [facility] [address], [place] [phone] Executive Officer: WHITNEY Barahona CHEST PORTABLEon 24-48-9708UA CHEST PORTABLE EXAMINATION: ONE XRAY VIEW OF [...] Signed by: Jesús Clemons MD 07/07/19 Final resultNormalMarietta Memorial Hospital, Prime FocusUniversity Hospitals [facility], [facility], ROBERT SCREEN WITH REFLEXon 53-36-6841Xwvcqsw Ab IF (S) [Titer]NegativeNEGATIVEUniversity Hospitals Geneva Medical Center, ROBERT Screenon 52-20-9925GES ScreenNegativeNoalNEGUniversity Hospitals Beachwood Medical CenterComment on above:Result Comment: This test was run on the [employer] RENEE test system. The system provides ten test results (HEp-2NA, dsDNA, SSA, SSB, Sm, MANAGER SOCIAL RESPONSIBILITY, Scl-70, Alberta-1, Centromere and Histone analytes) from a single patient sample. A negative RENEE screen indicates that the specimen was negative for all ten markers.Performed By: #### C3, C4, IFX, ANASCX, PE ####[facility] [place] [address] [facility] Director: Savage Jacob MDAwayne hospitalada Blood Gas, POCon 80-14-9847Cyavr TestNOT REPORTEDMer[facility]- [place], ZBMME355.0[facility]- [place], [place] ModeCPAP/PSMercy [facility]- [place], KYNegative Base Excess, Hyp1Qnmna Health- [place], ORO2 Device/Flow/%Adult VentilatorMer Health- [place], ORPOC XFL478.6 mmol/L21 - 28 mmol/LMercy [facility]- [place], ORPOC O2 SAT97 %94 - 98 %[facility]- [place], ORPOC pCO2 49.2HighMer Health- [place], ORPO pCO2 TempNOT REPORTEDmm HgMer Health- [place], [place] POC pH7.306LowMer Health- [place], ORPOC pH TempNOT REPORTEDMer Health- [place], ORPOC PO296.0[facility]- [place], ORPO pO2 TempNOT REPORTEDmm HgMercy Health- [place], [place] Positive Base Excess, ArtNOT REPORTEDMercy [facility]- [place], KYPt TempNOT REPORTED [facility]- [place], ORSample SiteArterial LineKettering Health Behavioral Medical Center Health- [place], ORTCO2 (calc), Art 26 mmol/L22 - 29 mmol/LMer[facility]- [place], KYAllen TestNOT REPORTEDMercy Health- [place], HJHXJ458.0[facility]- [place], KYModeSIMV(PRVC)+ PSMercy Health- [place], KYNegative Base Excess, Lcl4EstvWflpm Health- [place], ORO2 Device/Flow/%Adult VentilatorMer Health- [place], ORPOC SAF810.0 mmol/L21 - 28 mmol/LMercy [facility]- [place], ORPOC O2 SAT99 %High94 - 98 %[facility]- [place], ORPOC sIM691.0[facility]- [place], ORPO pCO2 Temp NOT REPORTEDmm HgMercy Health- [place], [facility] pH7.383[facility]- [place], [facility] pH Temp NOT REPORTEDMer Health- [place], [facility] AO8494.9HighMer Health- [place], [facility] pO2 Temp NOT REPORTEDmm HgMer Health- [place], ORPositive Base Excess, ArtNOT REPORTEDK[facility]tering [facility]- [place], ORPt TempNOT REPORTEDK[facility] Health [facility]- [place], [facility] Centerle SiteArterial Line [facility]- [place], ORTCO2 (calc), Art23 mmol/L22 - 29 mmol/LMtrinity health system [facility] Health- [place], [place] Graham TestNOT REPORTEDKettering Health Behavior[facility]- [place], CLMPT422.0[facility]- [place], [place] Interpretation and review of laboratory resultsAbnormUNC Hospitals Hills[facility]- [place], [facility] SIMV([facility])+ PSMtrinity health system [facility] Health- [place], [facility] ANNE HOSPITALegative Base Excess, Zrv5FiflSslzh Health- [place], ORO2 Device/Flow/%Adult VentilatorKettering Health Behavioral Medical Center Health- [place], [facility] FOE530.2 mmol/L21 - 28 mmol/[facility], [facility] O2 SAT97 %94 - 98 %[facility] [facility] [id number], [facility] pCO2 TempNOT REPORTEDmm HgK[facility] Health Behavioral [facility]- [place], [place] POC pH7.274LowMer Health- [place], [facility] pH TempNOT REPORTEDKettering Health Behavioral Medical [facility]- [place], [facility] [id number], [facility] pO2 TempNOT REPORTEDmm HgKettering Health Behavior[facility]- [place], [place] Positive Base Excess, ArtNOT REPORTEDKettering Health Behavioral [facility]- [place], ORPt TempNOT REPORTED [facility]- [place], [facility]le SiteArterial LineK[facility]tering Health [facility]- [place], ORTCO2 (calc), Art 24 mmol/L22 - 29 mmol/LMhocking valley community hospitaly [facility]- [place], ORAllen TestNOT REPORTEDKettering Health Behavior[facility]- [place], VIKOU066.0[facility]- [place], ORInterpretation and review of laboratory resultsAbnoNovant Health [facility]- [place], [facility] CentereSIMV([facility])+ PSMtrinity health system twin [facility]- [place], [place] Negative Base Excess, Ohw0Imyxj Health- [place], ORO2 Device/Flow/%Adult Ventilator [facility], [facility] FET319.9 mmol/L21 - 28 mmol/LMercy Health- [place], ORPO O2 SAT97 %94 - 98 %[facility] [place], [place]POC cNO169.8[facility]- [place], ORPO pCO2 TempNOT REPORTEDmm HgMercy Health- [place], [place]POC pH7.325LowMer Health- [place], ORPO pH TempNOT REPORTEDMer Health- [place], [place]POC VV8535.5[facility]- [place], ORPO pO2 TempNOT REPORTEDmm HgMercy Health- [place], ORPositive Base Excess, ArtNOT REPORTED [facility]- [place], KYPt TempNOT REPORTEDMer Health- [place], ORSample SiteArterial LineMer Health- [place], ORTCO2 (calc), Art25 mmol/L22 - 29 mmol/LMercy Health- [place], ORAllen TestNOT REPORTEDMer Health- [place], IYGXH239.0[facility]- [place], ORMode SIMV(PRVC)+ PSMercy Health- [place], KYNegative Base Excess, [id number] Health- [place], ORO2 Device/Flow/%Adult VentilatorMer Health- [place], [facility] WKA644.7 mmol/LLow 21 - 28 mmol/LMerc [facility]- [place], [facility] O2 SAT93 %Low94 - 98 %[facility]- [place], [place] POC aNT172.7[facility]- [place], [facility] pCO2 TempNOT REPORTEDmm HgMer [facility]- [place], [facility] pH7.261LowMer [facility]- [place], [facility] pH TempNOT REPORTEDMer Health- [place], [place] POC PO277.6LowMer [facility]- [place], [facility] pO2 TempNOT REPORTEDmm HgMer Health- [place], ORPositive Base Excess, ArtNOT REPORTEDMer Health- [place], ORPt TempNOT REPORTED [facility]- [place], ORSample SiteArterial LineMer Health- [place], ORTCO2 (calc), Art 21 mmol/LLow22 - 29 mmol/LMercy Health- [place], ORAllen TestNOT APPLICABLEMer Health- [place], EDUPK885.0[facility]- [place], ORInterpretation and review of laboratory resultsAbnormalMer Health- [place], ORModeCPAP/PSMercy Health- [place], [place] Negative Base Excess, Lqr1ZlbuIvzyx Health- [place], KYO2 Device/Flow/%Adult VentilatorMer Health- [place], [facility] SXJ855.4 mmol/LLow21 - 28 mmol/LMercy [facility]- [place], [facility] O2 SAT97 %94 - 98 %[facility]- [place], [facility] nZJ092.7[facility]- [place], [facility] pCO2 TempNOT REPORTEDmm HgMercy Health- [place], [facility] pH7.307LowMercy Health- [place], ORPOC pH TempNOT REPORTEDMercy Health- [place], ORPOC PO296.7Mer [facility]- [place], [place] P[place] pO2 TempNOT REPORTEDmm HgMer Health- [place], ORPositive Base Excess, ArtNOT REPORTEDMer Health- [place], KYPt TempNOT REPORTEDK[facility]tering Health [facility]- [place], KYSample Site Arterial LineMer Health- [place], ORTCO2 (calc), Art22 mmol/L22 - 29 mmol/LMercy Health- [place], ORBasic Metabolic Panelon [id number] gap [Moles/Vol]15 mmol/L9 - 17 mmol/LMercy Health- [place], KYBun/Cre RatioNOT REPORTEDMer Health- [place], [place] Calcium [Mass/Vol]8.2 mg/dLLow8.6 - 10.4 mg/dLMercy Health- [place], KYChloride [Moles/Vol]108 mmol/LHigh98 - 107 mmol/LMercy Health- [place], KYCO2 [Moles/Vol]21 mmol/L20 - 31 mmol/LMercy Health- [place], KYCreatinine [Mass/Vol]1.77 mg/dLHigh0.5 - 0.9 mg/dLDayton Children'S Hospitalcy Health- [place], KYGFR Vcwlnzvz76 mL/minLow>60[facility]- [place], KYGFR CommentMer Health- [place], KYGFR Non- Psyvmagv24 mL/minLow>60 [facility]- [place], KYGFR StagingNOT REPORTEDK[facility]tering Health [facility]- [place], ORGlucose [Mass/Vol]183 mg/lITiry61 - 99 mg/dLKettering Health Behavioral [facility]- [place], KYInterpretation and review of laboratory resultsAbnormalMer Health- [place], KYPotassium [Moles/Vol]4.0 mmol/L3.7 - 5.3 mmol/LMercy [facility], KYSodium [Moles/Vol]144 mmol/L135 - 144 mmol/LMOur Lady of [facility]cy [facility] - [place], KYUrea nitrogen [Mass/Vol]49 mg/dLHigh8 - 23 mg/dLUniversity Hospitals [facility], KYBun/Cre RatioNOT REPORTEDUniversity [facility], KYGFR 35 mL/minLow>60[facility], KYGFR CommentUniversity Hospitals Geneva Medical Center, KYGFR Non- Pcaylyxd76 mL/minLow>60[facility], KYGFR StagingNOT [facility], KYInterpretation and review of laboratory resultsAbnormalUniversity Hospitals [facility] Medical Center, KYBasic Metabolic Profon 07-06-2019(cont.)[facility] - ColumbusComment on above:Result Comment: Average GFR for 70 or more years old: 75 mL/min/1.73sq m Chronic Kidney Disease: <60 mL/min/1.73sq m Kidney failure: <15 mL/min/1.73sq m eGFR calculated using average adult body mass. Additional eGFR calculator available at: http://www.Nodeable/multiple_crcl_2012.htmPerformed By: #### TYS #### [facility] [address] [place] [address] Executive Officer: HALEY Barahonaerformed By: #### CBC, PT, BMP, MG, VNCR, LIVP ####[facility] [place] [address] Lab Director: Chayito Barahona gap [Moles/Vol]15 mmol/LNormal9-17[facility]wood Medical CenterComment on above:Performed By: #### TYS #### [facility] [address] [place] [address] Executive Officer: Savage Jacob MDCalcium [Mass/Vol]8.2 mg/dLLow8.6-10.4[facility] Beachwood Medical CenterComment on above:Performed By: #### TYS #### [facility] [address] [place] [address] Executive Officer: CASEY Barahonahloride [Moles/Vol]108 mmol/ZQyiu05-564KyuvcUniversity Hospitals Beachwood Medical CenterComment on above:Performed By: #### TYS #### [address] [address] Executive Officer: Savage Jacob MDCO2 [Moles/Vol]21 mmol/VDefduz90-50IzlndUniversity Hospitals Beachwood Medical CenterComment on above:Performed By: #### TYS #### [address] [address] Executive Officer: CASEY Barahonareatinine [Mass/Vol]1.77 mg/dLHigh0.50-0.90 [facility] Medical CenterComment on above:Performed By: #### TYS #### [address] [address] Executive Officer: SALLY Barahona, Amer34 mL/minLow>60[facility] Medical CenterComment on above:Performed By: #### TYS #### [address] [address] Executive Officer: SALLY Barahona,non Amer28 mL/minLow>60[facility] Medical CenterComment on above:Performed By: #### TYS #### [address] [address] Executive Officer: Savage Jacob MDGlucose [Mass/Vol]183 mg/zZYbrj48-26YsskrEmanate Health/Foothill Presbyterian HospitalComment on above:Performed By: #### TYS #### [address] [address] Executive Officer: Savage Jacob MDPotassium [Moles/Vol]4.0 mmol/LNormal3.7-5.3 [facility] Medical CenterComment on above:Performed By: #### TYS #### [facility] [address] [place] [address] Executive Officer: ZANA Barahonaodium [Moles/Vol]144 mmol/YYyrqfp199-290DzsdqUniversity Hospitals Beachwood Medical CenterComment on above:Performed By: #### TYS #### [facility] [address] [place] [address] Executive Officer: Sherie Barahona nitrogen [Mass/Vol]49 mg/dLHigh8-23[facility] Medical CenterComment on above:Performed By: #### TYS #### [facility] [address] [place] [address] Executive Officer: Savage Jacob MDBUN/CRE RatioNOT REPORTEDNormal9-20[facility] Medical CenterComment on above:Performed By: #### TYS #### [address] [address] Executive Officer: ZANA Barahonataging:NOT REPORTEDNormalUniversity Hospitals Beachwood Medical CenterComment on above:Performed By: #### TYS #### [facility] [address] [place] [address] Executive Officer: Savage Jacob MDGFR, Amer35 mL/minLow>60[facility] Medical CenterComment on above:Performed By: #### CBC, PT, BMP, MG, VNCR, LIVP ####[facility] [address] [place] [address] Lab Director: SALLY Barahona,non Amer29 mL/minLow>60[facility] Medical CenterComment on above:Performed By: #### CBC, PT, BMP, MG, VNCR, LIVP ####[facility] [address] [place] [address] Lab Director: Savage Jacob MDBUN/CRE RatioNOT REPORTEDNormal9-20[facility] Comment on above:Performed By: #### CBC, PT, BMP, MG, VNCR, LIVP ####[facility] [address]kybhhv26[address] [place] [address] Lab Director: Savage Jacob MDStaging:NOT REPORTEDSelect Medical Specialty Hospital - ColumbusComment on above:Performed By: #### CBC, PT, BMP, MG, VNCR, LIVP ####[facility] Xpkgwcsefpeh1530 [place] [address] Lab Director: Savage Jacob MDAnion gap [Moles/Vol]17 mmol/LNormal9-17[facility], KYComment on above:Performed By: #### CBC, PT, BMP, MG, VNCR, LIVP ####[facility] [address] [place] [address] Lab Director: Savage Jacob MDCalcium [Mass/Vol]8.3 mg/dLLow8.6-10.4[facility], KYComment on above:Performed By: #### CBC, PT, BMP, MG, VNCR, LIVP ####[facility] [address] [place] [address] Lab Director: Savage Jacob MDChloride [Moles/Vol]109 mmol/XGdfk30-253Hwibv Health- [place], KYComment on above:Performed By: #### CBC, PT, BMP, MG, VNCR, LIVP ####[facility] Errmxmhkoykb[address] [place], [place] [address] Lab Director: Savgae Jacob MDCO2 [Moles/Vol]18 mmol/QSst52-04 [facility], KYComment on above:Performed By: #### CBC, PT, BMP, MG, VNCR, LIVP ####[facility] [address]rpznawpm[address]150 [place] [address] Lab Director: Savage Jacob MDCreatinine [Mass/Vol]1.76 mg/dLHigh0.50-0.90[place], KYComment on above:Performed By: #### CBC, PT, BMP, MG, VNCR, LIVP ####[facility] [address] [place], [place] [phone] Director: Savage Jacob MDGlucose [Mass/Vol]212 mg/aBKgyq59-99KrlarDecatur, [place] Comment on above:Performed By: #### CBC, PT, BMP, MG, VNCR, LIVP ####[facility] [address]zhqfitd86[address] [place], [place] [phone] Director: HALEY Barahonaotassium [Moles/Vol]4.1 mmol/LNormal3.7-5.3MDecatur, [place] Comment on above:Performed By: #### CBC, PT, BMP, MG, VNCR, LIVP ####[facility] [address]ixub[address]jyhyq[address] [place], [place] [phone] Director: ZANA Barahonaodium [Moles/Vol]144 mmol/QJhqaso049-857QvwkhAlexander, KYComment on above:Performed By: #### CBC, PT, BMP, MG, VNCR, LIVP ####[facility] [address]wewzgbfxl9867 [place] [address] Lab Director: Savage Jacob MDUrea nitrogen [Mass/Vol]47 mg/dLHigh8-23[place], KYComment on above:Performed By: #### CBC, PT, BMP, MG, VNCR, LIVP ####[facility] Dxhfsbrmgrbg8078 [place], [place] [phone] Director: Ulysses Barahona 07-90-0071Eehwawbegwj distribution width (RBC) [Ratio]15.8 %High 11.8-14.4[facility] Medical CenterComment on above:Performed By: #### CBC, PT, BMP, MG, VNCR, LIVP ####[facility] [address]ds[address]aepeezp[address]677 [place] [address] Lab Director: Savage Jacob MDHematocrit (Bld) [Volume fraction]26.6 %Low36.3-47.1MEmanate Health/Foothill Presbyterian HospitalComment on above: Performed By: #### CBC, PT, BMP, MG, VNCR, LIVP ####[facility] Yliofxdngztj2105 [place] [address] Lab Director: Savage Jacob MD Hemoglobin (Bld) [Mass/Vol]8.4 g/dLLow11.9-15.1MEmanate Health/[facility] Hospital Comment on above:Performed By: #### CBC, PT, BMP, MG, VNCR, LIVP ####[facility] [address] [place] [address] Lab Director: ALISSA BarahonaCH (RBC) [Entitic mass]28.1 keMrlrld22.2-33.5[facility] Medical CenterComment on above:Performed By: #### CBC, PT, BMP, MG, VNCR, LIVP ####[facility] [address] [place] [address] Lab Director: ALISSA BarahonaCHC (RBC) [Mass/Vol]31.6 g/bKVtrjaf20.4-34.8[facility] Medical CenterComment on above:Performed By: #### CBC, PT, BMP, MG, VNCR, LIVP ####[facility] [address] [place] [address] Lab Director: ALISSA BarahonaCV (RBC) [Entitic vol]89.0 fGSmgump91.6-102.9[facility] Medical CenterComment on above:Performed By: #### CBC, PT, BMP, MG, VNCR, LIVP ####[facility] C[address]zjxswma[address]78 [place] [address] Lab Director: Savage Jacob MDNRBC Automated0.2 per 100 WBCHigh0.0[facility] Medical CenterComment on above:Performed By: #### CBC, PT, BMP, MG, VNCR, LIVP ####[facility] R[address]hwafonix[address] [place] [address] Lab Director: Taylor Baarhonatemartine mean volume (Bld) [Entitic vol]10.5 fL Normal8.1-13.5[facility] Medical CenterComment on above:Performed By: #### CBC, PT, BMP, MG, VNCR, LIVP ####[facility] S[address]ukbwskyxgf5[address] [place], [place] [phone] Director: Taylor Barahonatelets (Bld) [#/Vol]96 10*3/gHOga062-083IwrgaUniversity Hospitals Beachwood Medical CenterComment on above:Performed By: #### CBC, PT, BMP, MG, VNCR, LIVP ####[facility] [address]whrxlrxjrph[address] [place] [address] Lab Director: Savage Jacob MDRBC (Bld) [#/Vol]2.99 10*6/uLLow3.95-5.11[facility] Medical CenterComment on above:Performed By: #### CBC, PT, BMP, MG, VNCR, LIVP ####[facility] Ndfzysroaxdj3755 [place], [place] [phone] Director: Savage Jacob MDWBC (Bld) [#/Vol]11.6 10*3/uLHigh3.5-11.3MEmanate Health/Foothill Presbyterian HospitalComment on above: Performed By: #### CBC, PT, BMP, MG, VNCR, LIVP ####[facility] E[address]jh[address] [place] [address] Lab Director: Savage Jacob MD Erythrocyte distribution width (RBC) [Ratio]15.8 %High11.8 - 14.4 %[facility]RES[facility]ARCH [facility], KYHematocrit (Bld) [Volume fraction]26.6 %Low36.3 - 47.1 %[place], KYHemoglobin (Bld) [Mass/Vol]8.4 g/dLLow11.9 - 15.1 g/dLAlexander, [place] Interpretation and review of laboratory resultsAbnormalAlexander, KYMCH (RBC) [Entitic mass]28.1 pg25.2 - 33.5 pgAlexander, KYMCHC (RBC) [Mass/Vol]31.6 g/dL28.4 - 34.8 g/dLAlexander, KYMCV (RBC) [Entitic vol] 89.0 fL82.6 - 102.9 fLAlexander, KYPlatelet mean volume (Bld) [Entitic vol]10.5 fL8.1 - 13.5 fLAlexander, KYPlatelets (Bld) [#/Vol]96 10*3/uLLow [place], KYRBC (Bld) [#/Vol]2.99 10*6/uLLow3.95 - 5.11 m/uLUniversity Hospitals Geneva Medical Center, ORWBC (Bld) [#/Vol]11.6 10*3/uLHighAlexander, KYWBC (Bld) [#/Vol]0.2 10*3/uLHigh0.0 per 100 WBCAlexander, KYCT HEAD WO CONTRASTon [id number] HEAD WO CONTRASTEXAMINATION: CT OF THE HEAD [...] Signed by: Aliyah Das MD 07/06/19 Final resultNoMercy Health West HospitalMercy Health- [place], KYMercy Health- [place], KYMercy Health- [place], KYEKG 12 Leadon [id number] Jqqn97RTCQvqrz Health- [place], KYAtrial Awgc36SWSUmdbo Health- [place], KYP Iexu06jgeleizOfczi Health- [place], KYP-R Txxcdgam817 msMercy Health- [place], KYQ-T Bebjjpiq334 msMercy Health- [place], KYQ-T Xnsiehsm835 msMercy Health- [place], KYQRS Vzocmesw657 msMercy Health- [place], [place] QRS Byshnmum276 msMercy Health- [place], KYQTc Calculation (Bazett)528 msMercy Health- [place], KYQTc Calculation (Bazett)520 msMercy Health- [place], KYR Noyv43xshehyl [facility]- [place], KYR Uvtd71wyefuccVedjh Health- [place], KYT [place]-90degreesMercy Health- [place], KYVentricular Lash73KRJDylok Health- [place], KYVentricular Myuq63INS [facility]- [place], KYAtrial Cqlm46RRMTrxef Health- [place], KYP Xmis08eyjyexzUesva Health- [place], KYP-R Qhvysead248 msMercy Health- [place], KYQ-T Qjklmgew809 msMercy Health- [place], KYQRS Rgbqbtat71 msMercy Health- [place], KYQTc Calculation (Bazett)504 msMercy Health- [place], KYR Kmwl93bigomivGvvcp Health- [place], KYVentricular Lwgq59JOU [facility]- [place], KYElectrophoresis Protein, Serum without Reflex to Immunofixationon [id number] %76 %High45 - 65 %[facility]- [place], KYAlbumin [Mass/Vol]3.6 g/dL3.2 - 5.2 g/dLUniversity Hospitals Geneva Medical Center, KYAlpha 1 %4 %3 - 6 %[facility], KYAlpha 2 %8 %6 - 13 %[facility], MMPjcxe-9-Ktathbrv0.2 g/dL 0.1 - 0.4 g/dLUniversity Hospitals Geneva Medical Center, HPNukgy-0-Bhrswynm0.4 g/dLLow0.5 - 0.9 g/dLUniversity Hospitals Geneva Medical Center, KYBeta Globulin0.3 g/dLLow0.5 - 1.1 g/dLUniversity Hospitals Geneva Medical Center, KYBeta Percent6 %Low11 - 19 %[facility], KYGamma Globulin0.3 g/dLLow0.5 - 1.5 g/dLUniversity Hospitals Geneva Medical Center, KYGamma Globulin %6 %Low9 - 20 %[facility], [place] Interpretation and review of laboratory resultsAbnormalUniversity Hospitals Geneva Medical Center, [place] Pathologist Cyto stain Nom (Cvx/Vag) [ID]ELECTRONICALLY SIGNED. LOKI FRANCISCO M.D.[facility], ORProtein [Mass/Vol]4.7 g/dLLow6.4 - 8.3 g/dL [facility], ORProtein Electrophoresis, SerumDECREASED ALPHA 2 GLOBULIN. MAY BE OBSERVED IN A VARIETY OF CONDITIONS, e.g. HEPATIC DISEASE, ANEMIAS, AND HEMOLYSIS.[facility], ORTotal Prot. Sum4.8 g/dLLow6.3 - 8.2 g/dLUniversity Hospitals Geneva Medical Center, ORTotal Prot. Sum,%100 %98 - 102 %[facility], ORHepatic Function Panelon [id number] [Mass/Vol]3.4 g/dLLow3.5 - 5.2 g/dLUniversity Hospitals Geneva Medical Center, ORAlbumin/Globulin [Mass ratio]1.9 {ratio}[facility], KYALP [Catalytic activity/Vol]37 U/L35 - 104 U/LMOur Lady of [facility]cy [facility] - [place], KYALT [Catalytic activity/Vol]9 U/L5 - 33 U/LMOur Lady of Mercy [facility] [place], KYAST [Catalytic activity/Vol]38 U/LHigh<32[facility], KYBilirubin Ql (U)0.30 mg/dL0.3 - 1.2 mg/dLUniversity Hospitals Geneva Medical Center, ORBilirubin, Indirect0.19 mg/dL0 - 1 mg/dLUniversity Hospitals Geneva Medical Center, [place] Bilirubin.direct [Mass/Vol]0.11 mg/dL<0.31[facility], KYGlobulinNOT REPORTED1.5 - 3.8 g/dLUniversity Hospitals Geneva Medical Center, KYInterpretation and review of laboratory resultsAbnormalUniversity Hospitals Geneva Medical Center, KYProtein [Mass/Vol]5.2 g/dLLow6.4 - 8.3 g/dLUniversity Hospitals Geneva Medical Center, KYImmunofixation serum profileon 07-06-2019 Pathologist Cyto stain Nom (Cvx/Vag) [ID]ELECTRONICALLY SIGNED. LOKI FRANCISCO M.D.[facility], ORSerum IFX InterpIMMUNOFIXATION IS NEGATIVE FOR MONOCLONAL IMMUNOGLOBULIN.[place], KYImmunofixation,Bloodon 07-06-2019 IFX - Interpret.IMMUNOFIXATION IS NEGATIVE FOR MONOCLONAL IMMUNOGLOBULIN.Normal [facility] Medical CenterComment on above:Performed By: #### C3, C4, IFX, ANASCX, PE ####[employer] [address]vpfm[address] [place] [phone] Director: HALEY Barahonaathologist Review:ELECTRONICALLY SIGNED. LOKI FRANCISCO M.D.[facility] - ColumbusComment on above: Performed By: #### C3, C4, IFX, ANASCX, PE ####[employer] Lv[address]ffdvjixp[address] [place] [address] Lab Director: Debbie Barahona Profileon [id number] [Mass/Vol]3.4 g/dLLow3.5-5.2MEmanate Health/[facility]byterian Hospital Comment on above:Performed By: #### TYS #### [facility] [employer] [address] [place] [address] Executive Officer: Yanna Barahonabumin/Globulin [Mass ratio]1.9 {ratio}Normal 1.0-2.5[facility] Medical CenterComment on above:Performed By: #### TYS #### [facility] [address] [place] [address] Executive Officer: Yanna Barahonakaruss Phos37 U/CGniqdr06-826GfgkmUniversity Hospitals Beachwood Medical CenterComment on above:Performed By: #### TYS #### [facility] [address] [place] [address] Executive Officer: Savage Jacob MDALT [Catalytic activity/Vol]9 U/LNormal5-33[facility] Medical CenterComment on above:Performed By: #### TYS #### [address] [address] Executive Officer: Savage Jacob MDAST [Catalytic activity/Vol]38 U/LHigh<32[facility] Medical CenterComment on above:Performed By: #### TYS #### [address] [address] Executive Officer: Savage Jacob MDBilirubin Ql (U)0.30 mg/dLNormal0.3-1.2MEmanate Health/Foothill Presbyterian HospitalComment on above:Performed By: #### TYS #### [address] [address] Executive Officer: Sammie Barahonairubin, Indirect0.19 mg/dLNormal0.00-1.00 [facility] Medical CenterComment on above:Performed By: #### TYS #### [address] [address] Executive Officer: Yenny Barahona.direct [Mass/Vol]0.11 mg/dLNormal<0.31 [facility] Medical CenterComment on above:Performed By: #### TYS #### [address] [id number] Executive Officer: Savage Jacob MDProtein [Mass/Vol]5.2 g/dLLow6.4-8.3MEmanate Health/Foothill Presbyterian HospitalComment on above:Performed By: #### TYS #### [facility] [employer] [facility] [place] [address] Executive Officer: aSvage Jacob MDGlobulin (S) [Mass/Vol]NOT REPORTEDNormal1.5-3.8 [facility] CenterComment on above:Performed By: #### TYS #### [facility] [employer] [address] [place] [address] Executive Officer: Miles Barahonagnesiumon [id number] [Mass/Vol]2.2 mg/dLNormal1.6-2.6MercHCA Florida Trinity Hospital, ORComment on above:Performed By: #### TYS #### [facility] [employer] [address] [place] [address] Executive Officer: Savage Jacob MDOtheron [id number] and review of laboratory resultsAbPomerene Hospital, KYT [place]-36deOhioHealth [facility], [facility], [facility], KYInterpretation and review of laboratory resultsAbPomerene Hospital, ORInterpretation and review of laboratory resultsAbPomerene Hospital, [facility] Glucose Fingerstickon 76-24-2181Ktegnioxrefnzc and review of laboratory resultsAbPomerene Hospital, [facility] Cxqtvjy232 mg/pTLahw73 - 105 mg/dLUniversity Hospitals [facility], [facility] Qiojfff43 mg/dL65 - 105 mg/dLUniversity Hospitals [facility], [facility] Queveta30 mg/dL65 - 105 mg/dLUniversity Hospitals [facility] Center, KYPOC Dxigyam33 mg/dL65 - 105 mg/dLUniversity Hospitals Geneva Medical Center, ORPOC Bayapbe00 mg/dL65 - 105 mg/dLUniversity Hospitals Geneva Medical Center, KYPOCT Glucoseon 60-62-1005OKL Tdfuwbw496 mg/tLRhrr32 - 100 mg/dLUniversity Hospitals Geneva Medical Center, [facility] Vmosvox920 mg/pSXimd43 - 100 mg/dLUniversity Hospitals Geneva [facility] Center, [facility] Ejpgsvo855 mg/wRCmxm07 - 100 mg/dLUniversity Hospitals Geneva Medical Center, KYPROTEIN ELECTROPHORESIS, URINEon 07-06-2019P E Interpretation, UURINE PROTEIN CONCENTRATION IS ELEVATED. PROTEIN ELECTROPHORESIS DEMONSTRATES INCREASED GLOMERULAR PERMEABILITY. A DECREASE IN TUBULAR FUNCTION CANNOT BE RULED OUT. [facility], ORPathologist Cyto stain Nom (Cvx/Vag) [ID]ELECTRONICALLY SIGNED. LOKI FRANCISCO M.D.[facility], JERRYSpecimen type Nom (Spec) .URINEUniversity [facility]als [facility], ORUrine Total Thgqdaa89 mg/dLUniversity Hospitals [facility], ORPTon [id number] Coag (PPP) [Relative time]1.2 {INR}[facility] - ColumbusComment on above:Result Comment: Therapeutic Range: Moderate Anticoagulant Intensity: INR = 2.0-3.0 High Anticoagulant Intensity: INR = 2.5-3.5Performed By: #### CBC, PT, BMP, MG, VNCR, LIVP ####[facility] [address] [place] [address] Lab Director: RIGO Barahona Coag (PPP) [Time]12.1 sHigh9.0-12.0[facility] Comment on above:Performed By: #### CBC, PT, BMP, MG, VNCR, LIVP ####[facility] [address]ocv[address] [place] [address] Lab Director: MDProt. [place] Electroph, Blon 70-80-8289Hdocqxvicmq Review:ELECTRONICALLY SIGNED. LOKI FRANCISCO M.D.[facility] - ColumbusComment on above:Performed By: #### C3, C4, IFX, ANASCX, PE ####[facility] [address] [place] [address] Lab Director: MDProt. [place] Elect-InterpDECREASED ALPHA 2 GLOBULIN. MAY BE OBSERVED IN A VARIETY OF CONDITIONS, e.g.NormalUniversity Hospitals Beachwood Medical CenterComment on above:Result Comment: HEPATIC DISEASE, ANEMIAS, AND HEMOLYSIS. DECREASED BETA GLOBULINS. MAY BE DUE TO SELECTIVE DECREASE IN TRANSFERRIN, C3, OR BETA LIPOPROTEIN. HYPOGAMMAGLOBULINEMIA IS PRESENT. MAY BE OBSERVED IN VARIETY OF CONDITIONS INCLUDING MALIGNANT LYMPHOPROLIFERATIVE DISEASE (MULTIPLE MYELOMA, LYMPHOMA, etc.), VARIOUS CYTOTOXIC OR IMMUNOSUPPRESSIVE DRUGS (TUTORING ASSISTANT STEROIDS, etc.), PLASMAPHORESIS, AND SOME IMMUNODEFICIENCY CONDITIONS. IMMUNOFIXATION IS NEGATIVE FOR MONOCLONAL IMMUNOGLOBULIN.Performed By: #### C3, C4, IFX, ANASCX, PE ####[facility] [address] [place], [place] [phone] Director: Savage Jacob MDAlbumin [Mass/Vol]3.6 g/dLNormal3.2-5.2 [facility] CenterComment on above:Performed By: #### C3, C4, IFX, ANASCX, PE ####[facility] [address] [place] [address] [phone] Director: Savage Jacob MDAlbumin, %76 %Xceq03-15PhirzUniversity Hospitals Beachwood Medical CenterComment on above:Performed By: #### C3, C4, IFX, ANASCX, PE ####[facility] [address]emc[address] [place], [place] [phone] Director: Savage Jacob MDABNUceuo-7-ztetimyce7.2 g/dLNormal0.1-0.4[facility] Medical CenterComment on above:Performed By: #### C3, C4, IFX, ANASCX, PE ####[facility] [address] [place], [place] [phone] Director: Savage Jacob MDAlpha-1-globulins,%4 %Normal3-6[facility] Of West CovinaComment on above:Performed By: #### C3, C4, IFX, ANASCX, PE ####[facility] [address]tj[address] [place] [address] Lab Director: Savage Jacob MDAWQOnjih-3-rrguqptyf8.4 g/dLLow0.5-0.9[facility] Comment on above:Performed By: #### C3, C4, IFX, ANASCX, PE ####[facility] [address]hpybqbqnp[address] [place] [address] Lab Director: Savage Jacob MDAlpha-2-globulins,%8 %Normal6-13[facility] Comment on above:Performed By: #### C3, C4, IFX, ANASCX, PE ####[facility] [address]lqwuepph[address] [place] [address] Lab Director: Savage Jacob MDBeta-globulins0.3 g/dLLow0.5-1.1MEmanate Health/[facility] Comment on above:Performed By: #### C3, C4, IFX, ANASCX, PE ####[facility] [address]rm[address] [place] [address] Lab Director: Savage Jacob MDBeta-globulins,%6 %Xyb96-22McteaUniversity Hospitals Beachwood Medical CenterComment on above:Performed By: #### C3, C4, IFX, ANASCX, PE ####[facility] [address]rposwhrmhk[address] [place] [address] Lab Director: Savage Jacob MD Gamma-globulins0.3 g/dLLow0.5-1.5[facility] CenterComment on above:Performed By: #### C3, C4, IFX, ANASCX, PE ####[facility] [address]fsfjwm[address] [place] [address] Lab Director: Savage Jacob MD Gamma-globulins,%6 %Low9-20[facility] CenterComment on above: Performed By: #### C3, C4, IFX, ANASCX, PE ####[facility] [address] [place] [address] Lab Director: Lindsey Barahona Prot. Sum 4.8 g/dLLow6.3-8.2[facility] Of West CovinaComment on above:Performed By: #### C3, C4, IFX, ANASCX, PE ####[facility] [address] [place] [address] Lab Director: Lindsey Barahona Prot. Sum,%100 %Normal 98-102[facility] Medical CenterComment on above:Performed By: #### C3, C4, IFX, ANASCX, PE ####[facility] [address]eq[address] [place] [phone] Director: Ric Barahona. Electroph, Uron 07-06-2019 Ur.-Prot.Elect-InterURINE PROTEIN CONCENTRATION IS ELEVATED. PROTEIN ELECTROPHORESIS DEMONSTRATESNormalUniversity Hospitals Beachwood Medical CenterComment on above:Result Comment: INCREASED GLOMERULAR PERMEABILITY. A DECREASE IN TUBULAR FUNCTION CANNOT BE RULED OUT.Performed By: #### DENIZ DAVIS #### [facility] [address] [place] [address] Executive Officer: Perm Barahonaologist Review:ELECTRONICALLY SIGNED. LOKI FRANCISCO M.D.[facility] Hospital - ColumbusComment on above: Performed By: #### UA, UMICAO #### [facility] [address] [place] [address] Executive Officer: Christo Barahona-INRon 36-54-7153UEU Coag (PPP) [Relative time]1.2 {INR}[facility]- [place], KYInterpretation and review of laboratory resultsAbnormalMercy Health- [place], KYPT Coag (PPP) [Time]12.1 sHighMercy Health- [place], KYVANCOMYCIN, RANDOMon 73-48-3062Omqjmkvajh Random Date last doseNOT REPORTEDMercy Health- [place], KYVancomycin Random Dose amountNOT REPORTEDMercy Health- [place], KYVancomycin Random Time last doseNOT REPORTEDMercy Health- [place], [place] Vancomycin Rm19.2 ug/mL[facility], JERRYVancomycin,Randomon 07-06-2019 Gehnhvssdi97.2 ug/mLNormalUniversity Hospitals Beachwood Medical CenterComment on above: Result Comment: Higher trough serum vancomycin concentrations of 15-20 ug/mL are recommended for complicated infections such as bacteremia, endocarditis, osteomyelitis, meningitis, and hospital acquired pneumonia.Performed By: #### TYS #### [employer] [address] [place] [address] Executive Officer: FARIBA Barahonaate last dose,NOT REPORTEDNormGuernsey Memorial HospitalComment on above:Performed By: #### TYS #### [facility] [address] [place] [address] Executive Officer: FARIBA Barahonaose amount,NOT REPORTEDNoMercy Health West HospitalComment on above:Performed By: #### TYS #### [facility] [address] [place] [address] [phone] Executive Officer: Pb Barahona last dose,NOT REPORTEDNoMercy Health West HospitalComment on above:Performed By: #### TYS #### [employer] [address] [place] [address] [phone] Executive Officer: WHITNEY Barahona CHEST PORTABLEon 30-04-2259WA CHEST PORTABLE EXAMINATION: ONE XRAY VIEW OF [...] Signed by: Ana Grace MD 07/06/19 Final resultNormalGalion Hospital- [place], [facility]- [place], KYSt. [facility]- [place], KYAMMONIAon 85-07-1462Hwejvnr (P) [Mass/Vol]26 umol/L11 - 51 umol/LMtrinity health system [facility] Health- [place], KYAmmoniaon 96-65-7004Ozwbrxy (P) [Mass/Vol]26 umol/CPhiant60-93VutosUniversity Hospitals Beachwood Medical CenterComment on above: Performed By: #### UA, UMICAO #### [facility] [place] [phone] Executive Officer: Savage Jacob MDAnistarla Gap (Calc) POCon 04-19-6630Bhvux gap [Moles/Vol]11 mmol/L7 - 16 mmol/[facility]- [place], KYAnion gap [Moles/Vol]13 mmol/L7 - 16 mmol/[facility] [place], ORArterial Blood Gas, POCon 00-09-9133Vlrkk TestNOT APPLICABLEUniversity Hospitals [facility] [place], JDSCC871.0[facility], ORModePRVCMWVUMedicine Harrison Community Hospital [place], KYNegative Base Excess, Bat4YzqihUniversity Hospitals Geneva Medical Center, KYO2 Device/Flow/% Adult VentilatorUniversity Hospitals [facility] Medical Center, [facility] EXE460.7 mmol/L21 - 28 mmol/LMMemorial Health System- [place], ORPOC O2 SAT96 %94 - 98 %[facility] [place], [facility] rCJ144.3MMemorial Health System- [place], [facility] pCO2 TempNOT REPORTEDmm HgSt. [facility]- [place], ORPOC pH7.381[facility]- [place], ORPO pH TempNOT REPORTEDUniversity [facility]als [facility] [place], [facility] PO286.4[facility]- [place], [facility] pO2 TempNOT REPORTEDmm HgMercy Health- [place], KYPositive Base Excess, ArtNOT REPORTEDMercy [facility]- [place], KYPt TempNOT REPORTEDMercy [facility]- [place], ORSale SiteArterial LineMercy Health- [place], KYTCO2 (calc), Art24 mmol/L22 - 29 mmol/LMercy [facility]- [place], KYAllen TestNOT APPLICABLEMercy Health- [place], OONII187.0 [facility]- [place], KYModePRVCMercy Health- [place], KYNegative Base Excess, Nzm6Knxg [facility]- [place], KYO2 Device/Flow/%Adult VentilatorMercy Health- [place], KYPOC HCO3 23.3 mmol/L21 - 28 mmol/LMercy [facility]- [place], ORPOC O2 SAT94 %94 - 98 %[facility]- [place], ORPOC uRN605.5HighMer Health- [place], ORPO pCO2 TempNOT REPORTEDmm Hg [facility]- [place], ORPOC pH7.289LowMercy Health- [place], ORPO pH TempNOT REPORTED [facility]- [place], ORPOC PO281.3LowMercy Health- [place], ORPO pO2 TempNOT REPORTEDmm HgMercy Health- [place], KYPositive Base Excess, ArtNOT REPORTEDMer Health- [place], [place] Pt TempNOT REPORTEDMer Health- [place], [facility] SiteArterial LineKettering Health Behavioral [facility] Health- [place], KYTCO2 (calc), Art25 mmol/L22 - 29 mmol/LMercy [facility]- [place], ORBAEASTERN [facility] METABOLIC PANELon 32-46-7678Sbzgl gap [Moles/Vol]18 mmol/LHigh9 - 17 mmol/LMercy [facility]- [place], KYBun/Cre RatioNOT REPORTEDMercy Health- [place], KYCalcium [Mass/Vol]8.2 mg/dL Low8.6 - 10.4 mg/dLMercy Health- [place], KYChloride [Moles/Vol]110 mmol/LHigh98 - 107 mmol/LMercy [facility]- [place], KYCO2 [Moles/Vol]17 mmol/LLow20 - 31 mmol/LMercy [facility]- [place], KYCreatinine [Mass/Vol]1.66 mg/dLHigh0.5 - 0.9 mg/dLMercy Health- [place], KYGFR Bawezbtg31 mL/minLow>60[facility]- [place], KYGFR CommentMercy Health- [place], KYGFR Non- Xssizqmb53 mL/minLow>60[facility]- [place], KYGFR StagingNOT REPORTEDMercy [facility]- [place], KYGlucose [Mass/Vol]176 mg/cTXvaz05 - 99 mg/dLMercy Health- [place], KYInterpretation and review of laboratory resultsAbnormal [facility]- [place], KYPotassium [Moles/Vol]4.5 mmol/L3.7 - 5.3 mmol/LMer[facility]- [place], KYSodium [Moles/Vol]145 mmol/DWcvt225 - 144 mmol/LMercy [facility]- [place], KYUrea nitrogen [Mass/Vol]41 mg/dLHigh8 - 23 mg/dLMercy Health- [place], KYBL GAS,MIX-RUFINO,EXTon 58-24-5361KiKP, Mixed, Extended0.6 %0 - 5 %[facility]- [place], KYHemoglobin, Mixed, Extended8.1 g/dLLow12 - 18 g/dLMercy Health- [place], [place] Interpretation and review of laboratory resultsAbnormalMercy Health- [place], [place] MetHb, Mixed, Extended0.6 %0 - 1.5 %[facility]- [place], KYO2 Content, Mixed, Daxfcdbj0Qqmbd Health- [place], KYO2 Sat, Mixed, Vnkotyjp33.4 %Low60 - 80 %[facility]- [place], KYOxygen Gtlfxv68%[facility]- [place], KYBasic Metabolic Panelon 41-86-3544Yhaus gap [Moles/Vol]16 mmol/L9 - 17 mmol/LMercy [facility]- [place], KYBun/Cre RatioNOT REPORTEDMercy Health- [place], KYCalcium [Mass/Vol]8.8 mg/dL8.6 - 10.4 mg/dLMercy Health- [place], KYChloride [Moles/Vol]112 mmol/LHigh98 - 107 mmol/LMercy [facility]- [place], KYCO2 [Moles/Vol]19 mmol/LLow20 - 31 mmol/LMer[facility]- [place], [place] Creatinine [Mass/Vol]1.81 mg/dLHigh0.5 - 0.9 mg/dLMercy Health- [place], KYGFR Tyequfbw99 mL/minLow>60[facility]- [place], KYGFR CommentMercy Health- [place], KYGFR Non- Prsrwrhp43 mL/minLow>60[facility], KYGFR StagingNOT REPORTEDUniversity [facility], KYGlucose [Mass/Vol]131 mg/iXYfco91 - 99 mg/dLUniversity [facility]als [facility], KYInterpretation and review of laboratory resultsAbnormalUniversity [facility]als [facility], KYPotassium [Moles/Vol]4.7 mmol/L3.7 - 5.3 mmol/LMOur [facility] of [facility], KYSodium [Moles/Vol]147 mmol/GYgfg385 - 144 mmol/LMOur Lady of [facility], KYUrea nitrogen [Mass/Vol]31 mg/dLHigh8 - 23 mg/dLUniversity [facility]als [facility], KYBasic Metabolic Profon 07-05-2019(cont.)NormalUniversity Hospitals Beachwood Medical CenterComment on above: Result Comment: Average GFR for 70 or more years old: 75 mL/min/1.73sq m Chronic Kidney Disease: <60 mL/min/1.73sq m Kidney failure: <15 mL/min/1.73sq m eGFR calculated using average adult body mass. Additional eGFR calculator available at: http://www.[employer]/multiple_crcl_2012.htmPerformed By: #### BMP ####[facility] biostructuresWzkprdpdgyuw[address] [place] [address] Lab Director: Savage Jacob MDAnion gap [Moles/Vol]18 mmol/LHigh9-17[facility] Comment on above:Performed By: #### BMP ####[facility] [address] [place] [address] Lab Director: CASEY Barahonaalcium [Mass/Vol]8.2 mg/dLLow8.6-10.4[facility] CenterComment on above: Performed By: #### BMP ####[employer] [address]mp[address] [place] [address] Lab Director: CASEY Barahonahloride [Moles/Vol]110 mmol/L Socf81-085QdmwxUniversity Hospitals Beachwood Medical CenterComment on above:Performed By: #### BMP ####[facility] [address] [place], [place] [phone] Director: Savage Jacob MDCO2 [Moles/Vol]17 mmol/AAuu39-11CorexUniversity Hospitals Beachwood Medical CenterComment on above:Performed By: #### BMP ####[facility] [address] [place], [place] [address])[phone] Director: Savage Jacob MD Creatinine [Mass/Vol]1.66 mg/dLHigh0.50-0.90[facility] Comment on above:Performed By: #### BMP ####[facility] Z[address]se[address] [place], [place] [phone] Director: Savage Jacob MDGFR, Amer 37 mL/minLow>60[facility] CenterComment on above:Performed By: #### BMP ####[facility] T[address]em[address] [place], [place] [address])[phone] Director: Savage Jacob MDGFR,non Amer31 mL/minLow>60[facility] CenterComment on above:Performed By: #### BMP ####[facility] F[address]ff[address] [place], [place] [phone] Director: Savage Jacob MDGlucose [Mass/Vol]176 mg/uTNvpu37-99Xltqz [facility] Comment on above:Performed By: #### BMP ####[facility] Azrvfvyjdwtu[address]87 [place], [place] [phone] Director: Savage Jacob MDPotassium [Moles/Vol]4.5 mmol/LNormal3.7-5.3MEmanate Health/Foothill Presbyterian HospitalComment on above:Performed By: #### BMP ####[facility] [address]xy[address]te[address] [place], [place] [phone] Director: ZANA Barahonaodium [Moles/Vol]145 mmol/L Ltpx097-579UfhgaUniversity Hospitals Beachwood Medical CenterComment on above:Performed By: #### BMP ####[facility] [address]tx[address]grblf[address] [place] [address] Lab Director: Savage Jacob MDUrea nitrogen [Mass/Vol]41 mg/dLHigh8-23[facility] CenterComment on above:Performed By: #### BMP ####[facility] [address]per[address] [place], [place] [phone] Director: Savage Jacob MDBUN/CRE RatioNOT REPORTEDNormal9-20[facility] Comment on above:Performed By: #### BMP ####[facility] [address]qn[address]ef[address]omkt[address] [place] [address] Lab Director: ZANA Barahonataging:NOT REPORTEDNoalUniversity Hospitals Beachwood Medical CenterComment on above:Performed By: #### BMP ####[facility] [address]rf[address]awl[address] [place] [address] Lab Director: Savage Jacob MD(cont.)[facility] - ColumbusComment on above:Result Comment: Average GFR for 70 or more years old: 75 mL/min/1.73sq m Chronic Kidney Disease: <60 mL/min/1.73sq m Kidney failure: <15 mL/min/1.73sq m eGFR calculated using average adult body mass. Additional eGFR calculator available at: http://www.[employer]/multiple_crcl_2012.htmPerformed By: #### DENIZ DAVIS #### [facility] [address] [place] [address] Executive Officer: Savage Jacob MDAnion gap [Moles/Vol]16 mmol/LNormal9-17[facility] CenterComment on above:Performed By: #### DENIZ DAVIS #### [facility] [address] [place] [address] Executive Officer: Savage Jacob MDCalcium [Mass/Vol]8.8 mg/dLNormal8.6-10.4[facility] CenterComment on above:Performed By: #### DENIZ DAVIS #### [facility] [address] [place] [address] Executive Officer: CASEY Barahonahloride [Moles/Vol]112 mmol/IXcyb57-096VdcgyUniversity Hospitals Beachwood Medical CenterComment on above:Performed By: #### DENIZ DAVIS #### [facility] [address] [place] [address] Executive Officer: Savage Jacob MDCO2 [Moles/Vol]19 mmol/RAkt94-34KeljtUniversity Hospitals Beachwood Medical CenterComment on above:Performed By: #### DENIZ DAVIS #### [address] [address] Executive Officer: CASEY Barahonareatinine [Mass/Vol]1.81 mg/dLHigh0.50-0.90 [facility] CenterComment on above:Performed By: #### DENIZ DAVIS #### [address] [address] Executive Officer: Savage Jacob MDGFR, Amer34 mL/minLow>60[facility] CenterComment on above:Performed By: #### MARY DAVISO #### [address] [address] Executive Officer: Savage Jacob MDGFR,non Amer28 mL/minLow>60[facility] CenterComment on above:Performed By: #### MAKAYLA DAVISICAO #### [address] [address] Executive Officer: Savage Jacob MDGlucose [Mass/Vol]131 mg/nDTjje83-23FuldfEmanate Health/Foothill Presbyterian HospitalComment on above:Performed By: #### UA, UMICAO #### [facility] [address] [place] [address] Executive Officer: HALEY Barahonaotassium [Moles/Vol]4.7 mmol/LNormal3.7-5.3 [facility] CenterComment on above:Performed By: #### UA, UMICAO #### [facility] [address] [place] [address] Executive Officer: ZANA Barahonaodium [Moles/Vol]147 mmol/UOjgx754-979VdcmvUniversity Hospitals Beachwood Medical CenterComment on above:Performed By: #### UA, UMICAO #### [facility] [address] [place] [address] Executive Officer: Savage Jacob MDUrea nitrogen [Mass/Vol]31 mg/dLHigh8-23[facility] CenterComment on above:Performed By: #### UA, UMICAO #### [facility] [address] [place] [address] Executive Officer: FELICITY Barahona/SHALINI Ziegler REPORTEDNormal9-20[facility] CenterComment on above:Performed By: #### UA, UMICAO #### [facility] [address] [place] [address] Executive Officer: ZANA Barahonataging:NOT REPORTEDNormalUniversity Hospitals Beachwood Medical CenterComment on above:Performed By: #### UA, UMICAO #### [facility] [address] [place] [address] Executive Officer: Savage Jacob MDBl Gas,Mix-Rufino,[place] 09-49-1068NhCP0.6 %Normal 0-5.0[facility] CenterComment on above:Performed By: #### UA, UMICAO #### [facility] [address] [place] [address] Executive Officer: Savage Jacob MDHemoglobin (Bld) [Mass/Vol]8.1 g/dLLow12.0-18.0 [facility] CenterComment on above:Performed By: #### SUSAN, UMICAO #### [facility] [address] [place] [address] Executive Officer: ALISSA BarahonaetHb0.6 %Normal0.0-1.5[facility] CenterComment on above:Performed By: #### SUSAN, UMICAO #### [facility] [address] [place] [address] Executive Officer: Savage Jacob MDO2 Content7 vol %Normal6-15[facility] CenterComment on above:Performed By: #### SUSAN UMICAO #### [address] [address] Executive Officer: Savage Jacob MDOxygen saturation in Blood59.4 %Lzo79-08ObnfeUniversity Hospitals Beachwood Medical CenterComment on above:Performed By: #### SUSAN UMICAO #### [address] [address] Executive Officer: Savage Jacbo MDOxygen Mfqqxd89%NormalUniversity Hospitals Beachwood Medical CenterComment on above:Performed By: #### SUSAN UMICAO #### [address] [address] Executive Officer: Savage Jacob [facility] [place] 96-99-8841P617 mg/cJYqa19-454UpqubUniversity Hospitals Beachwood Medical CenterComment on above:Performed By: #### C3, C4, IFX, ANASCX, PE ####[address] [address] Lab Director: CASEY Barahona[address] [place] [address] 62-57-7537Lkamzspdai C348 mg/dLLow90 - 180 mg/dLUniversity Hospitals [facility], KYInterpretation and review of laboratory results AbnormalUniversity Hospitals [facility], KYC4on 64-06-2202E175 mg/oIBdkocd33-80GdwcaUniversity Hospitals Beachwood Medical CenterComment on above:Performed By: #### C3, C4, IFX, ANASCX, PE ####[facility] [address]cimupo[address] [place] [address] Lab Director: MACKENZIE Barahona COMPLEMENTon 87-94-0477Xaivlbghtn C411 mg/dL10 - 40 mg/dLUniversity Hospitals [facility], KYCALCIUM, IONIC (POC)on 83-07-4434VAI Ionized Calcium 1.22 mmol/L1.15 - 1.33 mmol/LMOur Lady of [facility], KYPOC Ionized Calcium1.27 mmol/L 1.15 - 1.33 mmol/[facility], KYCBCon 22-81-6999Ahiaarxnvqy distribution width (RBC) [Ratio]16.1 %High11.8-14.4[facility] Medical CenterComment on above:Performed By: #### DENIZ DAVIS #### [facility] [address] [place] [address] Executive Officer: Savage Jacob MDHematocrit (Bld) [Volume fraction]25.7 %Low 36.3-47.1MEmanate Health/Foothill Presbyterian HospitalComment on above:Performed By: #### DENIZ DAVIS #### [employer] [address] [place] [address] Executive Officer: Savage Jacob MDHemoglobin (Bld) [Mass/Vol]8.4 g/dLLow11.9-15.1 [facility] CenterComment on above:Performed By: #### SUSAN UMICAO #### [facility] [address] [place] [address] Executive Officer: ALISSA BarahonaCH (RBC) [Entitic mass]28.8 esFecnai00.2-33.5 [facility] CenterComment on above:Performed By: #### SUSAN UMICAO #### [employer] [address] [place] [address] Executive Officer: ALISSA BarahonaCHC (RBC) [Mass/Vol]32.7 g/oHEjaljx71.4-34.8 [facility] CenterComment on above:Performed By: #### DENIZ DAVIS #### [facility] [employer] [address] [place] [address] Executive Officer: ALISSA BarahonaCV (RBC) [Entitic vol]88.0 qJYxeewl94.6-102.9 [facility] CenterComment on above:Performed By: #### DENIZ DAVIS #### [facility] [employer] [address] [place] [address] Executive Officer: Savage Jacob MDNRBC Automated0.0 per 100 WBCNormal0.0[facility] Medical CenterComment on above:Performed By: #### DENIZ DAVIS #### [facility] [employer] [address] [place] [address] Executive Officer: Taylor Barahonatemartine mean volume (Bld) [Entitic vol]10.3 fL Normal8.1-13.5[facility] CenterComment on above:Performed By: #### DENIZ DAVIS #### [facility] [employer] [address] [place] [address] Executive Officer: HALEY Barahonalatelets (Bld) [#/Vol]78 10*3/wUTuc009-983SpkkrUniversity Hospitals Beachwood Medical CenterComment on above:Performed By: #### MARY DAVISO #### [facility] [employer] [address] [place] [address] Executive Officer: Savage Jacob MDRBC (Bld) [#/Vol]2.92 10*6/uLLow3.95-5.11[facility] CenterComment on above:Performed By: #### DENIZ DAVIS #### [facility] [address] [place], [place] [phone] Executive Officer: Savage Jacob MDWBC (Bld) [#/Vol]9.7 10*3/uLNormal3.5-11.3[facility] West CovinaComment on above:Performed By: #### UA, MARYO #### [facility] [address] [place], [place] [phone] Executive Officer: Savage Jacob MDErythrocyte distribution width (RBC) [Ratio]16.1 %High11.8 - 14.4 %[facility]- [place], KYHematocrit (Bld) [Volume fraction]25.7 % Low36.3 - 47.1 %[facility]- [place], KYHemoglobin (Bld) [Mass/Vol]8.4 g/dLLow11.9 - 15.1 g/dLSt. Mary'S [facility]- [place], KYInterpretation and review of laboratory results AbnormalSt. [facility]- [place], KYMCH (RBC) [Entitic mass]28.8 pg25.2 - 33.5 pgUniversity [facility]als Conne[facility] [place], KYMCHC (RBC) [Mass/Vol]32.7 g/dL28.4 - 34.8 g/dLSt. [facility]- [place], [place] MCV (RBC) [Entitic vol]88.0 fL82.6 - 102.9 fLSt. [facility]- [place], KYPlatelet mean volume (Bld) [Entitic vol]10.3 fL8.1 - 13.5 fLSt. [facility]- [place], KYPlatelets (Bld) [#/Vol]78 10*3/uLLowUniversity Hospitals Conneaut Medical Center [place], KYRBC (Bld) [#/Vol]2.92 10*6/uLLow 3.95 - 5.11 m/uLSt. [facility]- [place], KYWBC (Bld) [#/Vol]9.7 10*3/uLSt. [facility]- [place], KYWBC (Bld) [#/Vol]0.0 10*3/uL0.0 per 100 WBCSt. Mary'S [facility]- [place], KYCHLORIDE (POC)on 76-73-2458SDD Zynhczek312 mmol/LHigh98 - 107 mmol/LMercy Health- [place], [place] POC Yrzuxylp338 mmol/LHigh98 - 107 mmol/LMercy Health- [place], KYCHLORIDE, URINE, RANDOMon 60-52-2873Eqqtwtwo, Ur<20mmol/LMercy Health- [place], KYCREATININE, RANDOM URINEon 72-12-5493Zjigswvyyn, Ur121.8 mg/dL28 - 217 mg/dLSt. [facility] [place] [facility]- [place], [place] Chloride,Random Uron 30-30-2657Gj Conc.<20NormalUniversity Hospitals Beachwood Medical Center Comment on above:Result Comment: No normal range established.Performed By: #### UA, UMICAO #### [facility] [address] [place] [address] Executive Officer: Janae Barahona W/GFR Point of Careon 71-62-5899OST Juiibxs73 mL/minLow>60[facility]- [place], KYGFR CommentMercy Health- [place], KYGFR Non- Zhdoaejx38 mL/minLow>60[facility]- [place], KYPOC Creatinine1.78 mg/dL High0.51 - 1.19 mg/dLMercy Health- [place], KYGFR Qydkuwe43 mL/minLow>60[facility]- [place], KYGFR CommentMercy Health- [place], KYGFR Non- Noxilqzl90 mL/minLow>60 [facility], KYPOC Creatinine1.94 mg/dLHigh0.51 - 1.19 mg/dLUniversity Hospitals Conneaut [facility] [place], KYCreatinine,Random Uron 48-06-6899Ofxilhvsmz [Mass/Vol]121.8 mg/dLNormal 28.0-217.0University [facility] Beachwood Medical CenterComment on above:Performed By: #### UA, UMICAO #### [facility] [address] [place] [address] Executive Officer: HILARY Barahona PANEL, ACUTEon 10-04-4265SVS IgM IA Qn (S)NONREACTIVENONREACTIVEKettering [facility]- [place], KYHep B Core Ab, IgMNONREACTIVE NONREACTIVEKettering Health Behavioral [facility]- [place], KYHepatitis B Surface AgNONREACTIVENONREACTIVEMerSeattle VA Medical Center- [place], KYHepatitis C AbNONREACTIVENONREACTIVEUniversity [facility]als [facility], [place] Hemoglobin and hematocrit, bloodon 73-50-2276WWJ Tqblhnxwvp82 %Low36 - 46 %[facility], KYPOC Hemoglobin7.2 g/dLLow12 - 16 g/dLUniversity Hospitals [facility] Medical [facility], ORPOC Etgzexzhxj16 %Low36 - 46 %[facility], KYPOC Hemoglobin7.7 g/dLLow12 - 16 g/dLUniversity Hospitals Geneva Medical Center, KYHepatitis Acute Roro 49-59-2445Pld A Ab,IgMNONREACTIVE NormalPremier Health Atrium Medical CenterComment on above:Performed By: #### DENIZ DAVIS #### [facility] [address] [place] [address] Executive Officer: Keyana Barahona Core Ab,IgMNONREACTIVEBarberton Citizens HospitalComment on above:Performed By: #### MARY DAVISO #### [facility] [address] [place] [address] Executive Officer: Keyana Barahona Surf AgNONREPaulding County HospitalComment on above:Performed By: #### SUSAN UMICAO #### [facility] [address] [place] [address] Executive Officer: Keyana Barahona AbNONOregon Hospital for the InsaneComment on above:Result Comment: The hepatitis C procedure [...] By: #### SUSAN UMICAO #### [facility] [address] [place] [address] Executive Officer: JUJU Barahona (Potassium)on 34-96-4109Prtbnswkw [Moles/Vol] 4.6 mmol/LNormal3.7-5.3[facility] Hospital Of West CovinaComment on above: Performed By: #### DENIZ DAVIS #### [facility] [address] [place] [address] [id number] Executive Officer: Savage Jacob MDLactic Acid, POCon 00-90-3585XGJ Lactic Acid0.44 mmol/LLow0.56 - 1.39 mmol/LMOur Lady of [facility], KYPOC Lactic Acid0.98 mmol/L0.56 - 1.39 mmol/LMOur Lady of [facility], KYMAGNESIUMon 66-15-0341Jhptxhjng [Mass/Vol]2.0 mg/dL1.6 - 2.6 mg/dLUniversity Hospitals [facility], KYMagnesiumon 08-58-1174Znwowszkm [Mass/Vol]2.1 mg/dLNormal1.6-2.6Mercy [facility] Hospital Of West CovinaComment on above:Performed By: #### DENIZ DAVIS #### [facility] [address] [place] [address] Executive Officer: Miles Barahonagnesium [Mass/Vol]2.1 mg/dL1.6 - 2.6 mg/dL [facility], KYMagnesium [Mass/Vol]2.0 mg/dLNormal1.6-2.6Mercy [facility] Hospital Of West CovinaComment on above:Performed By: #### SUSAN, DENIZ #### [facility] [address] [place] [address] [id number] Executive Officer: Savage Jacob MDOtheron 56-97-3725Gwuhnnhstcvpbq and review of laboratory resultsAbPomerene Hospital, KYInterpretation and review of laboratory resultsAbPomerene Hospital, [facility] Glucose Fingerstickon 05-91-0446Iexdfbqormbllp and review of laboratory resultsAbnoTriHealth [facility], [facility] Rhjlatr502 mg/iTVqsk17 - 105 mg/dLUniversity Hospitals [facility], KYInterpretation and review of laboratory resultsAbnoTriHealth Good Samaritan Hospital, ORPO Oxpvqnl743 mg/dL High65 - 105 mg/dLUniversity Hospitals [facility], KYInterpretation and review of laboratory resultsAbnormLakeHealth [facility], ORPOC Fpzanxc561 mg/wPEztn88 - 105 mg/dLUniversity Hospitals [facility], KYInterpretation and review of laboratory resultsAbnoTriHealth Good Samaritan Hospital, KYPOC Svfmwfg635 mg/wIUkjq02 - 105 mg/dLUniversity Hospitals [facility], KYPOCT Glucoseon 08-06-1586HCH Nzjfduf515 mg/tTAlwh36 - 100 mg/dLUniversity [facility]als [facility], [place] POC Lkhpltp262 mg/uUNstd92 - 100 mg/dLUniversity Hospitals [facility] Medical [facility], KYPOTASSIUMon 07-05-2019 Potassium [Moles/Vol]4.6 mmol/L3.7 - 5.3 mmol/[facility], KYPOTASSIUM (POC)on 21-04-4569UHN Potassium4.5 mmol/L3.5 - 4.5 mmol/LMOur Lady of [facility], ORPOC Potassium4.5 mmol/L3.5 - 4.5 mmol/[facility], KYPOTASSIUM, URINE, RANDOM on 31-17-6836Pfukvyyao, Ur>150.0mmol/[facility], KYPREPARE PLATELETS, 1 Producton 10-63-6882Vhbvy product type Nom (BPU)LkIrPlt PASUniversity Hospitals Geneva Medical [facility], [place] Dispense StatusTRANSFUSEDMOur Lady of [facility], KYTransfusion StatusOK TO TRANSFUSE [facility], ORUnit Fwireuy0AumnmUniversity Hospitals Geneva Medical Center, ORUnit [id number] [facility], KYPTon 79-91-9274SDV Coag (PPP) [Relative time]1.1 {INR}Normal [facility]wood Medical CenterComment on above:Result Comment: Therapeutic Range: Moderate Anticoagulant Intensity: INR = 2.0-3.0 High Anticoagulant Intensity: INR = 2.5-3.5Performed By: #### DENIZ DAVIS #### [facility] [address] [place] [address] Executive Officer: Savage Madoff, MDPT Coag (PPP) [Time]11.8 sNormal9.0-12.0University [facility] Beachwood Medical CenterComment on above:Performed By: #### MAKAYLA DAVISICAElena #### [facility] [address] [place] [address] Executive Officer: Ham Barahonaium,Random Uron 07-05-2019K Conc.>150.0 NormalUniversity Hospitals Beachwood Medical CenterComment on above:Result Comment: No normal range established.Performed By: #### SUSAN, UMICAElena #### [facility] [address] [place] [address] Executive Officer: MDProt. [place] Electroph, Blon 54-13-8438Yrrsqul [Mass/Vol]4.7 g/dLLow6.4-8.3MEmanate Health/Foothill Presbyterian HospitalComment on above: Performed By: #### C3, C4, IFX, ANASCX, PE ####[facility] [address] [place] [address] Lab Director: MDProt. [place] Electroph, Uron 61-68-9388Zhcfwgh [Mass/Vol]37 mg/dLNormGuernsey Memorial Hospital Comment on above:Performed By: #### SUSAN, UMICAO #### [facility] [address] [place] [address] Executive Officer: Savage Jacob MDType of Specimen.URINENormalUniversity Hospitals Beachwood Medical CenterComment on above:Performed By: #### SUSAN, UMICAO #### [facility] [address] [place] [address] Executive Officer: Christo Barahona-INRon 20-43-0536HKD Coag (PPP) [Relative time]1.1 {INR}[facility]- [place], KYPT Coag (PPP) [Time]11.8 sMMemorial Health System- [place], KYSODIUM (POC)on 43-01-1651KFR Eqyckf731 mmol/DAyxg268 - 146 mmol/LMercy Health- [place], KYPOC Sjemfb881 mmol/L138 - 146 mmol/LMer[facility]- [place], KYSODIUM, URINE, RANDOMon 54-21-6279Szsony,Ur<20mmol/LMercy [facility]- [place], KYSodium, Random Uron 59-34-8760Hl Conc. Urine<20NormalMercy Doctors Hospital Of West CovinaComment on above:Result Comment: No normal range established.Performed By: #### UA, UMICAO #### [facility] [address] [place] [address] Executive Officer: Savage Jacob, MDSurgical Pathologyon 97-70-2781Pummumav Pathology ReportMercy Health- [place], KYURINALYSIS WITH MICROSCOPICon [...] Epithelial, UANOT REPORTED0 /HPFMercy Health- [place], KYSpecific [place], UA1.035HighMercy Health- [place], KYTrichomonas, UA NOT REPORTEDNoneMercy Health- [place], KYTurbidity UACLEARCLEARUniversity Hospitals Geneva Medical Center, [place] Urine HgbNegativeNEGATIVEUniversity Hospitals Geneva Medical Center, KYUrobilinogen, UrineNormalNormal [facility], KYWBC, UA2 TO 5[facility], KYYeast, UANOT REPORTEDNone [facility], KYUS RENAL COMPLETEon 96-64-0038SV RENAL COMPLETEEXAMINATION: RETROPERITONEAL ULTRASOUND OF THE KIDNEYS [...] Signed by: Enzo Plascencia MD 07/05/19 Final resultNormalMarietta Memorial Hospital, [facility], [facility], KYUrinalysis w/ Microon 62-96-8730Voixp LM.LPF (Urine sed) [#/Area]HYALINENormal0-2Mer[facility] Of West CovinaComment on above:Result Comment: TO Performed By: #### UA, UMICAO #### [facility] [address] [place] [address] Executive Officer: Savage Jacob MDEpithelial cells LM.HPF (Urine sed) [#/Area]2 TO 8Itsbdo5-6Vjlkz [facility] Of [facility] CovinaComment on above:Performed By: #### SUSAN, UMICAO #### [facility] [address] [place] [address] Executive Officer: ISABELLE BarahonaBC (U) [#/Vol]2 TO 4Zhmazm4-0Vqskk [facility] CovinaComment on above:Performed By: #### SUSAN, UMICAO #### [facility] [address] [place] [address] Executive Officer: Savage Jacob MDWBC (U) [#/Vol]2 TO 1Tnljst9-4LlgltParadise Valley HospitalComment on above:Performed By: #### SUSAN, UMICAO #### [facility] [address] [place] [address] Executive Officer: Savage Jacob MD-----NormalUniversity Hospitals Beachwood Medical Center Comment on above:Performed By: #### SUSAN, UMICAO #### [facility] [address] [place] [address] Executive Officer: Savage Jacob MDAcetoacetic Acid,UrMODERATEAbnormalNEGUniversity Hospitals Beachwood Medical CenterComment on above:Performed By: #### SUSAN, UMICAO #### [facility] [address] [place] [address] Executive Officer: Savage Jaocb MDBilirubin, SemiQt,UrNegativeNormalNEGUniversity Hospitals Beachwood Medical CenterComment on above:Performed By: #### SUSAN, UMICAO #### [facility] [address] [place] [address] Executive Officer: CASEY Barahonaolor (U)YELLOWNormalYELMerParadise Valley HospitalComment on above:Performed By: #### SUSAN UMICAO #### [facility] [address] [place] [address] Executive Officer: Savage Jacob MDGlucose Ql (U)NegativeNormalNEGUniversity Hospitals Beachwood Medical CenterComment on above:Performed By: #### SUSAN UMICAO #### [facility] [address] [place] [address] Executive Officer: Savage Jacob MDHemoglobin, UrNegativeNormalNEGMerParadise Valley HospitalComment on above:Performed By: #### SUSAN UMICAO #### [facility] [address] [place] [address] Executive Officer: Savage Jacob MDLeukocyte esterase Test strip Ql (U)Negative NormalNEGUniversity Hospitals Beachwood Medical CenterComment on above:Performed By: #### DENIZ DAVIS #### [address] [address] Executive Officer: Savage Jacob MDNitrite,UrNegativeNormalNEGUniversity Hospitals Beachwood Medical CenterComment on above:Performed By: #### SUSAN UMICAO #### [facility] [address] [place] [address] Executive Officer: Haley BarahonaH (U)5.0 [pH]Normal5.0-8.0MerParadise Valley HospitalComment on above:Performed By: #### SUSAN UMICAO #### [facility] [address] [place] [address] Executive Officer: HALEY Barahonarotein Ql (U)1+AbnormalNEGMerParadise Valley HospitalComment on above:Performed By: #### SUSAN UMICAO #### [facility] [address] [place] [address] Executive Officer: ZANA Barahonapecific gravity (U) [Rel density]1.035High 1.005-1.030MerParadise Valley HospitalComment on above:Performed By: #### UA, UMICAO #### [facility] [address] [place] [address] Executive Officer: PRATIK BarahonaurbidityCLEARNormalCLEARUniversity Hospitals Beachwood Medical CenterComment on above:Performed By: #### UA, UMICAO #### [facility] [address] [place] [address] Executive Officer: Daniella Barahonabilinogen,UrNormalNormalWayne HospitalComment on above:Performed By: #### UA, UMICAO #### [facility] [address] [place] [address] Executive Officer: Ines Barahona sediment LM Ql (Urine sed)NOT REPORTED NormalMercy Memorial HospitalComment on above:Performed By: #### UA, UMICAO #### [facility] [address] [place] [address] Executive Officer: Karen Barahona LM.HPF (Urine sed) [#/Area]NOT REPORTED NormalMercy Memorial HospitalComment on above:Performed By: #### UA, UMICAO #### [facility] [address] [place] [address] Executive Officer: Harish Barahona LM Nom (Urine sed)NOT REPORTEDNormal NONEMerParadise Valley HospitalComment on above:Performed By: #### UA, UMICAO #### [facility] [address] [place] [address] Executive Officer: Savage Jacob MDEpithelial, RenalNOT XGGXWQRCXnhscy0IuncvUniversity Hospitals Beachwood Medical CenterComment on above:Performed By: #### UA, UMICAO #### [facility] [address] [place] [address] Executive Officer: Gianna Barahonaus StrandsNOT REPORTEDNormalNONEMeAvalon Municipal HospitalComment on above:Performed By: #### UA, UMICAO #### [facility] [address] [place] [address] Executive Officer: Savage Jacob MDOther ObservationsNOT REPORTEDNormalNREQUniversity Hospitals Beachwood Medical CenterComment on above:Performed By: #### UA, UMICAO #### [facility] [address] [place] [address] Executive Officer: Savage Jacob MDTrichomonasNOT REPORTEDNormalNONEMeAvalon Municipal HospitalComment on above:Performed By: #### UA, UMICAO #### [facility] [address] [place] [address] Executive Officer: Azra Barahonaast LM Ql (Urine sed)NOT REPORTEDNormalNONE [facility] Medical CenterComment on above:Performed By: #### UA, UMICAO #### [facility] [address] [place] [address] Executive Officer: WHITNEY Barahona CHEST PORTABLEon 98-74-9701KR CHEST PORTABLE EXAMINATION: ONE XRAY VIEW OF [...] tube in stable position. There is a Carroll-Shawn catheter. There is a right-sided subclavian line in stable position. IMPRESSION: Mild pulmonary congestion with stable support tubes. Interpreted by: Lm Clemente MD Signed by: Lm Clemente MD 07/05/19 Final resultNoCommunity Memorial Hospital, KYMer[facility]- [place], KYMer[facility]- [place], KYAnion Gap (Calc) POCon 21-37-9350Zjtlm gap [Moles/Vol]11 mmol/L7 - 16 mmol/LMercy Health- [place], KYAnion gap [Moles/Vol]11 mmol/L7 - 16 mmol/LMer[facility]- [place], KYAnion gap [Moles/Vol]15 mmol/L7 - 16 mmol/LMer[facility]- [place], KYArterial Blood Gas, POCon 60-16-8979Xgfre TestNOT REPORTEDMercy Health- [place], QCLRO405.0[facility]- [place], KYModeSIMV(PRVC)+ PSMercy Health- [place], KYNegative Base Excess, ArtNOT REPORTEDMercy Health- [place], ORO2 Device/Flow/%Adult VentilatorMer Health- [place], [facility] RIA120.5 mmol/L21 - 28 mmol/LMercy Health- [place], ORPO O2 SAT93 %Low94 - 98 %[facility]- [place], ORPO pCO2 38.7[facility]- [place], [facility] pCO2 TempNOT REPORTEDmm HgMercy Health- [place], [facility] pH 7.459HighMer Health- [place], [facility] pH TempNOT REPORTEDMercy Health- [place], ORPO PO2 64.1LowMer Health- [place], [facility] pO2 TempNOT REPORTEDmm HgMer Health- [place], [place] Positive Base Excess, Nec4Sjplt Health- [place], KYPt TempNOT REPORTEDMer Health- [place], ORSample SiteArterial LineMer Health- [place], ORTCO2 (calc), Art29 mmol/L22 - 29 mmol/LMercy [facility]- [place], KYAllen TestNOT APPLICABLEMer Health- [place], KYFIO2 40.0[facility]- [place], ORModePRVCMercy Health- [place], KYNegative Base Excess, ArtNOT REPORTEDMer[facility]- [place], ORO2 Device/Flow/%Adult VentilatorMer Health- [place], ORPOC ZRT107.9 mmol/L21 - 28 mmol/LMer[facility]- [place], ORPO O2 SAT99 %High94 - 98 %[facility]- [place], ORPO tRH164.7[facility]- [place], ORPO pCO2 TempNOT REPORTED mm HgMercy Health- [place], [facility] pH7.417Mer [facility]- [place], ORPO pH TempNOT REPORTED [facility]- [place], [facility] KC4345.4HighMer Health- [place], [facility] pO2 TempNOT REPORTED mm HgMer Health- [place], ORPositive Base Excess, Zke6Bousq Health- [place], KYPt Temp NOT REPORTEDK[facility]tering [facility] Behavior[facility]- [place], [facility]le SiteArterial LineKettering [facility]- [place], ORTCO2 (calc), Art28 mmol/L22 - 29 mmol/LMer[facility]- [place], ORAllen TestNOT APPLICABLE [facility]- [place], HNRGP110.0[facility]- [place], ORModePRVCMercy Health- [place], [place] Negative Base Excess, ArtNOT REPORTEDKettering Health Behavioral [facility]- [place], ORO2 Device/Flow/%Adult VentilatorKettering Health Behavioral Medical Center [facility]- [place], [facility] RZW540.9 mmol/L21 - 28 mmol/LMercy Health- [place], [facility] O2 HQD047 %High94 - 98 %[facility]- [place], [facility] zLN401.5[facility]- [place], [facility] pCO2 TempNOT REPORTEDmm HgMer Health- [place], [facility] pH7.408[facility]- [place], [facility] pH TempNOT REPORTEDKettering Health Behavior[facility]- [place], [facility] MD5809.2HighKettering Health Behavioral Medical Center [facility]- [place], [facility] pO2 TempNOT REPORTEDmm HgKettering Health Behavioral Medical Center [facility]- [place], ORPositive Base Excess, Art 0Mer [facility]- [place], KYPt TempNOT REPORTEDKettering Health Behavioral [facility]- [place], [facility] SiteArterial LineKettering Health [facility]- [place], ORTCO2 (calc), Art26 mmol/L22 - 29 mmol/LMercy Health- [place], [facility] METABOLIC PANELon 49-67-6764Vfcqj gap [Moles/Vol]12 mmol/L9 - 17 mmol/L [facility]- [place], KYBun/Cre RatioNOT REPORTEDMercy Health- [place], ORCalcium [Mass/Vol]9.4 mg/dL8.6 - 10.4 mg/dLKettering Health Behavioral [facility] Center [facility]- [place], KYChloride [Moles/Vol]114 mmol/LHigh98 - 107 mmol/LMer[facility]- [place], KYCO2 [Moles/Vol]23 mmol/L20 - 31 mmol/LMer[facility]- [place], KYCreatinine [Mass/Vol]1.56 mg/dLHigh0.5 - 0.9 mg/dL [facility]- [place], KYGFR Jxgvvtdx40 mL/minLow>60[facility]- [place], KYGFR CommentMer Health- [place], KYGFR Non- Wczlmacv32 mL/minLow>60[facility]- [place], KYGFR StagingNOT REPORTEDMer[facility]- [place], KYGlucose [Mass/Vol]114 mg/dLHigh 70 - 99 mg/dLMer Health- [place], KYInterpretation and review of laboratory results AbnormalMercy Health- [place], KYPotassium [Moles/Vol]3.8 mmol/L3.7 - 5.3 mmol/LMer[facility]- [place], KYSodium [Moles/Vol]149 mmol/WGroa070 - 144 mmol/LMer[facility]- [place], KYUrea nitrogen [Mass/Vol]26 mg/dLHigh8 - 23 mg/dLDayton Children'S Hospitalcy Health- [place], KYAnion gap [Moles/Vol]13 mmol/L9 - 17 mmol/LMer[facility]- [place], KYBun/Cre RatioNOT REPORTED [facility]- [place], KYCalcium [Mass/Vol]8.6 mg/dL8.6 - 10.4 mg/dLMercy Health- [place], KYChloride [Moles/Vol]115 mmol/LHigh98 - 107 mmol/LMer[facility]- [place], KYCO2 [Moles/Vol]23 mmol/L20 - 31 mmol/LMer[facility]- [place], KYCreatinine [Mass/Vol]1.53 mg/dLHigh0.5 - 0.9 mg/dLMercy Health- [place], KYGFR Izoaweed80 mL/minLow>60 [facility] [place], KYGFR CommentMercy Health- [place], KYGFR Non- Uvlvqzom57 mL/minLow>60[facility]- [place], KYGFR StagingNOT REPORTEDMer Health- [place], [place] Glucose [Mass/Vol]111 mg/eYYwtz27 - 99 mg/dLKettering Health Behavioral [facility]- [place], KYInterpretation and review of laboratory resultsAbnormalMercy Health- [place], KYPotassium [Moles/Vol]4.0 mmol/L3.7 - 5.3 mmol/LMer[facility]- [place], KYSodium [Moles/Vol]151 mmol/AAlmq418 - 144 mmol/LMWVUMedicine Harrison [facility] [place], KYUrea nitrogen [Mass/Vol]25 mg/dL High8 - 23 mg/dLUniversity [facility]als [facility], [facility] Metabolic Panelon 80-53-3441Vjcre gap [Moles/Vol]15 mmol/L9 - 17 mmol/LMMemorial Health System- [place], KYBun/Cre RatioNOT REPORTED [facility], KYCalcium [Mass/Vol]9.0 mg/dL8.6 - 10.4 mg/dLUniversity Hospitals [facility], KYChloride [Moles/Vol]114 mmol/LHigh98 - 107 mmol/LMWVUMedicine Harrison Community Hospital [place], KYCO2 [Moles/Vol]23 mmol/L20 - 31 mmol/WVUM[facility] [place], KYCreatinine [Mass/Vol]1.39 mg/dLHigh0.5 - 0.9 mg/dLUniversity Hospitals [facility], KYGFR Yipdiqof22 mL/minLow>60 [facility], KYGFR CommentUniversity Hospitals Geneva Medical Center, KYGFR Non- Lvvvdrcr17 mL/minLow>60[facility], KYGFR StagingNOT REPORTEDUniversity Hospitals [facility], [place] Glucose [Mass/Vol]148 mg/nBPjwm27 - 99 mg/dLUniversity Hospitals [facility], KYInterpretation and review of laboratory resultsAbnormalUniversity Hospitals [facility], KYPotassium [Moles/Vol]4.5 mmol/L3.7 - 5.3 mmol/[facility] [place], KYSodium [Moles/Vol]152 mmol/YXmrf556 - 144 mmol/[facility], KYUrea nitrogen [Mass/Vol]21 mg/dL8 - 23 mg/dLUniversity Hospitals Geneva Medical Center, KYBawilliamson arh hospital Metabolic Profon 16-43-3527Gsjuhpanx [Moles/Vol]3.8 mmol/LNormal3.7-5.3MEmanate Health/Foothill Presbyterian HospitalComment on above:Performed By: #### PT, PTT #### [facility] [address] [place], [place] [id number] Executive Officer: Savage Jacob MD(cont.)[facility] Comment on above:Result Comment: Average GFR for 70 or more years old: 75 mL/min/1.73sq m Chronic Kidney Disease: <60 mL/min/1.73sq m Kidney failure: <15 mL/min/1.73sq m eGFR calculated using average adult body mass. Additional eGFR calculator available at: http://www.[employer].[facility]/multiple_crcl_2012.htmPerformed By: #### PT, PTT #### [facility] [address] [place] [address] Executive Officer: Savage Jacob MDAnion gap [Moles/Vol]12 mmol/LNormal9-17[facility] Medical CenterComment on above:Performed By: #### PT, PTT #### [facility] [address] [place] [address] Executive Officer: Savage Jacob MDCalcium [Mass/Vol]9.4 mg/dLNormal8.6-10.4[facility] Medical CenterComment on above:Performed By: #### PT, PTT #### [facility] [address] [place] [address] Executive Officer: Savage Jacob MDChloride [Moles/Vol]114 mmol/IGxku76-681NqzqyUniversity Hospitals Beachwood Medical CenterComment on above:Performed By: #### PT, PTT #### [facility] [address] [place] [address] Executive Officer: Savage Jacob MDCO2 [Moles/Vol]23 mmol/LFpbrcl96-96EplctUniversity Hospitals Beachwood Medical CenterComment on above:Performed By: #### PT, PTT #### [facility] [address] [place] [address] Executive Officer: Savage Jacob MDCreatinine [Mass/Vol]1.56 mg/dLHigh0.50-0.90 [facility] [facility]wood Medical CenterComment on above:Performed By: #### PT, PTT #### [facility] [address] [place] [address] 60178 Executive Officer: Savage Jacob MDGFR, Amer40 mL/minLow>60[facility] CenterComment on above:Performed By: #### PT, PTT #### [facility] [address] [place] [address] 55834 Executive Officer: Savage Jacob MDGFR,non Amer33 mL/minLow>60[facility] CenterComment on above:Performed By: #### PT, PTT #### [facility] [address] [place] [address] 77959 Executive Officer: Savage Jacob MDGlucose [Mass/Vol]114 mg/lDHhvy27-44Cdlny Doctors Hospital Of West CovinaComment on above:Performed By: #### PT, PTT #### [facility] [address] [place] [address] 80906 Executive Officer: ZANA Barahonaodium [Moles/Vol]149 mmol/CVfiq935-050XykfoUniversity Hospitals Beachwood Medical CenterComment on above:Performed By: #### PT, PTT #### [facility] [address] [place] [address] 72922 Executive Officer: Savage Jacob MDUrea nitrogen [Mass/Vol]26 mg/dLHigh8-23[facility] CenterComment on above:Performed By: #### PT, PTT #### [facility] [address] [place] [address] 91730 Executive Officer: Savage Jacob MDBUN/CRE RatioNOT REPORTEDNormal9-20[facility] CenterComment on above:Performed By: #### PT, PTT #### [facility] [address] [place] [address] 75616 Executive Officer: ZANA Barahonataging:NOT REPORTEDNormalMerParadise Valley HospitalComment on above:Performed By: #### PT, PTT #### [facility] [address] [place] [address] Executive Officer: Savage Jacob MD(cont.)[facility] Comment on above:Result Comment: Average GFR for 70 or more years old: 75 mL/min/1.73sq m Chronic Kidney Disease: <60 mL/min/1.73sq m Kidney failure: <15 mL/min/1.73sq m eGFR calculated using average adult body mass. Additional eGFR calculator available at: http://www.Nodeable/multiple_crcl_2012.htmPerformed By: #### PT, PTT #### [facility] [address] [place] [address] 92821 Executive Officer: Savage Jacob MDAnion gap [Moles/Vol]13 mmol/LNormal9-17[facility] CenterComment on above:Performed By: #### PT, PTT #### [facility] [address] [place] [address] 92680 Executive Officer: Savage Jacob MDCalcium [Mass/Vol]8.6 mg/dLNormal8.6-10.4[facility] CenterComment on above:Performed By: #### PT, PTT #### [facility] [address] [place] [address] 28613 Executive Officer: Savage Jacob MDChloride [Moles/Vol]115 mmol/RMqye00-371TrzjcUniversity Hospitals Beachwood Medical CenterComment on above:Performed By: #### PT, PTT #### [facility] [address] [place] [address] Executive Officer: Savage Jacob MDCO2 [Moles/Vol]23 mmol/VEnabnb07-59XpzbsUniversity Hospitals Beachwood Medical CenterComment on above:Performed By: #### PT, PTT #### [facility] [address] [place] [address] 31638 Executive Officer: Savage Jacob MDCreatinine [Mass/Vol]1.53 mg/dLHigh0.50-0.90 [facility] CenterComment on above:Performed By: #### PT, PTT #### [facility] [address] [place] [address] 19913 Executive Officer: Savage Jacob MDGFR, Amer41 mL/minLow>60[facility] CenterComment on above:Performed By: #### PT, PTT #### [facility] [address] [place] [address] 67077 Executive Officer: Savage aJcob MDGFR,non Amer34 mL/minLow>60[facility] CenterComment on above:Performed By: #### PT, PTT #### [facility] [address] [place] [address] 80742 Executive Officer: Savage Jacob MDGlucose [Mass/Vol]111 mg/zPSzxy68-60TiscuEmanate Health/Foothill Presbyterian HospitalComment on above:Performed By: #### PT, PTT #### [facility] [address] [place] [address] 74449 Executive Officer: HALEY Barahonaotassium [Moles/Vol]4.0 mmol/LNormal3.7-5.3 [facility] CenterComment on above:Performed By: #### PT, PTT #### [facility] [address] [place] [address] 32284 Executive Officer: Savage Jacob MDSodium [Moles/Vol]151 mmol/BJldm011-754DueguUniversity Hospitals Beachwood Medical CenterComment on above:Performed By: #### PT, PTT #### [facility] [address] [place] [address] 01318 Executive Officer: Savage Jacob MDUrea nitrogen [Mass/Vol]25 mg/dLHigh8-23[facility] CenterComment on above:Performed By: #### PT, PTT #### [facility] [address] [place] [address] 77089 Executive Officer: Savage Jacob MDBUN/CRE RatioNOT REPORTEDNormal9-20[facility] CenterComment on above:Performed By: #### PT, PTT #### [facility] [address] [place] [address] 9[address]24 Executive Officer: ZANA Barahonataging:NOT REPORTEDNormalUniversity Hospitals Beachwood Medical CenterComment on above:Performed By: #### PT, PTT #### [facility] [address] [place] [address] 79538 Executive Officer: Savage Jacob MD(cont.)[facility] Comment on above:Result Comment: Average GFR for 70 or more years old: 75 mL/min/1.73sq m Chronic Kidney Disease: <60 mL/min/1.73sq m Kidney failure: <15 mL/min/1.73sq m eGFR calculated using average adult body mass. Additional eGFR calculator available at: http://www.Nodeable/multiple_crcl_2012.htmPerformed By: #### CDP, PFA, CP, GLYHGB #### [facility] [address] [place] [address] 40675 Executive Officer: Savage Jacob MDAnion gap [Moles/Vol]15 mmol/LNormal9-17[facility] CenterComment on above:Performed By: #### CDP, PFA, CP, GLYHGB #### [facility] [address] [place] [address] 23595 Executive Officer: Savage Jacob MDCalcium [Mass/Vol]9.0 mg/dLNormal8.6-10.4[facility] CenterComment on above:Performed By: #### CDP, PFA, CP, GLYHGB #### [facility] [address] [place] [address] 24409 Executive Officer: Savage Jacob MDChloride [Moles/Vol]114 mmol/PNaxx27-566SomtrUniversity Hospitals Beachwood Medical CenterComment on above:Performed By: #### CDP, PFA, CP, GLYHGB #### [address] [address] Executive Officer: Savage Jacob MDCO2 [Moles/Vol]23 mmol/GPhabca97-42GctusUniversity Hospitals Beachwood Medical CenterComment on above:Performed By: #### CDP, PFA, CP, GLYHGB #### [place] [address] Executive Officer: CASEY Barahonareatinine [Mass/Vol]1.39 mg/dLHigh0.50-0.90 [facility] CenterComment on above:Performed By: #### CDP, PFA, CP, GLYHGB #### [place] [address] Executive Officer: Savage Jacob MDGFR, Amer45 mL/minLow>60[facility] CenterComment on above:Performed By: #### CDP, PFA, CP, GLYHGB #### [place] [address] Executive Officer: Savage Jacob MDGFR,non Amer37 mL/minLow>60[facility] CenterComment on above:Performed By: #### CDP, PFA, CP, GLYHGB #### [address] [address] Executive Officer: Savage Jacob MDGlucose [Mass/Vol]148 mg/aVZpgb55-21QgounEmanate Health/Foothill Presbyterian HospitalComment on above:Performed By: #### CDP, PFA, CP, GLYHGB #### [address] [address] Executive Officer: Savage Jacob MDPotassium [Moles/Vol]4.5 mmol/LNormal3.7-5.3 [facility] CenterComment on above:Performed By: #### CDP, PFA, CP, GLYHGB #### [facility] [address] [place] [address] Executive Officer: ZANA Barahonaodium [Moles/Vol]152 mmol/FSync484-013HpkozUniversity Hospitals Beachwood Medical CenterComment on above:Performed By: #### CDP, PFA, CP, GLYHGB #### [facility] [address] [place] [address] Executive Officer: Savage Jacob MDUrea nitrogen [Mass/Vol]21 mg/dLNormal8-23[facility] CenterComment on above:Performed By: #### CDP, PFA, CP, GLYHGB #### [facility] [address] [place] [address] Executive Officer: FELICITY Barahona/CRE Toney REPORTEDNormal9-20[facility] CenterComment on above:Performed By: #### CDP, PFA, CP, GLYHGB #### [facility] [address] [place] [address] 50290 Executive Officer: ZANA Barahonataging:NOT REPORTEDNormalUniversity Hospitals Beachwood Medical CenterComment on above:Performed By: #### CDP, PFA, CP, GLYHGB #### [facility] [address] [place] [address] 08372 Executive Officer: Savage Jacob MD(cont.)[facility] Comment on above:Result Comment: Average GFR for 70 or more years old: 75 mL/min/1.73sq m Chronic Kidney Disease: <60 mL/min/1.73sq m Kidney failure: <15 mL/min/1.73sq m eGFR calculated using average adult body mass. Additional eGFR calculator available at: http://www.[employer]/multiple_crcl_2012.htmPerformed By: #### CDP, PFA, CP, GLYHGB #### [facility] [address] [place] [address] 78454 Executive Officer: Savage Jacob MDAnion gap [Moles/Vol]21 mmol/LHigh9-17[facility] CenterComment on above:Performed By: #### CDP, PFA, CP, GLYHGB #### [address] [address] Executive Officer: Savage Jacob MDCalcium [Mass/Vol]9.3 mg/dLNormal8.6-10.4[facility] CenterComment on above:Performed By: #### CDP, PFA, CP, GLYHGB #### [address] [address] Executive Officer: Savage Jacob MDChloride [Moles/Vol]113 mmol/FCrwm66-576PvkjoUniversity Hospitals Beachwood Medical CenterComment on above:Performed By: #### CDP, PFA, CP, GLYHGB #### [address] [address] Executive Officer: Savage Jacob MDCO2 [Moles/Vol]19 mmol/QAsd35-92IqrlqUniversity Hospitals Beachwood Medical CenterComment on above:Performed By: #### CDP, PFA, CP, GLYHGB #### [address] [address] Executive Officer: CASEY Barahonareatinine [Mass/Vol]1.35 mg/dLHigh0.50-0.90 [facility] CenterComment on above:Performed By: #### CDP, PFA, CP, GLYHGB #### [facility] [address] [place] [address] 60432 Executive Officer: SALLY Barahona,John Amer47 mL/minLow>60[facility] CenterComment on above:Performed By: #### CDP, PFA, CP, GLYHGB #### [facility] [address] [place] [address] 45156 Executive Officer: Savage Jacob MDGFR,non Amer39 mL/minLow>60[facility] CenterComment on above:Performed By: #### CDP, PFA, CP, GLYHGB #### [facility] [address] [place] [address] 48022 Executive Officer: Savage Jacob MDGlucose [Mass/Vol]178 mg/jMSswl91-74XhdaaEmanate Health/Foothill Presbyterian HospitalComment on above:Performed By: #### CDP, PFA, CP, GLYHGB #### [facility] [address] [place] [address] 51693 Executive Officer: HALEY Barahonaotassium [Moles/Vol]3.9 mmol/LNormal3.7-5.3 [facility] CenterComment on above:Performed By: #### CDP, PFA, CP, GLYHGB #### [facility] [address] [place] [address] 71393 Executive Officer: ZANA Barahonaodium [Moles/Vol]153 mmol/ILaqm028-043XefhlUniversity Hospitals Beachwood Medical CenterComment on above:Performed By: #### CDP, PFA, CP, GLYHGB #### [facility] [address] [place] [address] 78544 Executive Officer: Savage Jacob MDUrea nitrogen [Mass/Vol]18 mg/dLNormal8-23[facility] CenterComment on above:Performed By: #### CDP, PFA, CP, GLYHGB #### [facility] [address] [place] [address] 00624 Executive Officer: FELICITY Barahona/CRE RatioNOT REPORTEDNormal9-20[facility] CenterComment on above:Performed By: #### CDP, PFA, CP, GLYHGB #### [facility] [address] [place] [address] 92338 Executive Officer: ZANA Barahonataging:NOT REPORTEDNormalUniversity Hospitals Beachwood Medical CenterComment on above:Performed By: #### CDP, PFA, CP, GLYHGB #### [facility] [address] [place] [address] 84393 Executive Officer: Savage Jacob MD(cont.)[facility] Comment on above:Result Comment: Average GFR for 70 or more years old: 75 mL/min/1.73sq m Chronic Kidney Disease: <60 mL/min/1.73sq m Kidney failure: <15 mL/min/1.73sq m eGFR calculated using average adult body mass. Additional eGFR calculator available at: http://www.Nodeable/multiple_crcl_2011.htmPerformed By: #### CDP, PFA, CP, GLYHGB #### [facility] [address] [place] [address] 01413 Executive Officer: Savage Jacob MDAnion gap [Moles/Vol]19 mmol/LHigh9-17[facility] CenterComment on above:Performed By: #### CDP, PFA, CP, GLYHGB #### [facility] [address] [place] [address] 64075 Executive Officer: Savage Jacob MDCalcium [Mass/Vol]9.8 mg/dLNormal8.6-10.4[facility] CenterComment on above:Performed By: #### CDP, PFA, CP, GLYHGB #### [facility] [address] [place] [address] 25364 Executive Officer: Savage Jacob MDChloride [Moles/Vol]113 mmol/AMkur95-046OjggdUniversity Hospitals Beachwood Medical CenterComment on above:Performed By: #### CDP, PFA, CP, GLYHGB #### [facility] [address] [place] [address] 30105 Executive Officer: Savage Jacob MDCO2 [Moles/Vol]21 mmol/DJiydsv79-03SvayzUniversity Hospitals Beachwood Medical CenterComment on above:Performed By: #### CDP, PFA, CP, GLYHGB #### [facility] [address] [place] [address] 79184 Executive Officer: Savage Jacob MDCreatinine [Mass/Vol]1.16 mg/dLHigh0.50-0.90 [facility] CenterComment on above:Performed By: #### CDP, PFA, CP, GLYHGB #### [facility] [address] [place] [address] 40556 Executive Officer: SALLY Barahona, Amer56 mL/minLow>60[facility] CenterComment on above:Performed By: #### CDP, PFA, CP, GLYHGB #### [facility] [address] [place] [address] 25956 Executive Officer: SALLY Barahona,non Amer46 mL/minLow>60[facility] CenterComment on above:Performed By: #### CDP, PFA, CP, GLYHGB #### [facility] [address] [place] [address] 66293 Executive Officer: Savage Jacob MDGlucose [Mass/Vol]157 mg/bKGsue79-58TbfjvEmanate Health/Foothill Presbyterian HospitalComment on above:Performed By: #### CDP, PFA, CP, GLYHGB #### [facility] [address] [place] [address] 84363 Executive Officer: Savage Jacob MDPotassium [Moles/Vol]3.6 mmol/LLow3.7-5.3MEmanate Health/Foothill Presbyterian HospitalComment on above:Result Comment: SPECIMEN SLIGHTLY HEMOLYZED, RESULTS MAY BE ADVERSELY AFFECTED.Performed By: #### CDP, PFA, CP, GLYHGB #### [facility] [address] [place] [address] 79174 Executive Officer: ZANA Barahonaodium [Moles/Vol]153 mmol/XRwyg300-705CubgyUniversity Hospitals Beachwood Medical CenterComment on above:Performed By: #### CDP, PFA, CP, GLYHGB #### [facility] [address] [place] [address] 94539 Executive Officer: Savage Jacob MDUrea nitrogen [Mass/Vol]16 mg/dLNormal8-23[facility] CenterComment on above:Performed By: #### CDP, PFA, CP, GLYHGB #### [facility] [address] [place] [address] 17155 Executive Officer: Savage Jacob MDBl Gas,Mix-Ruf[place] [id number] %Normal 0-5.0[facility] CenterComment on above:Performed By: #### CDP, PFA, CP, GLYHGB #### [facility] [address] [place] [address] 73380 Executive Officer: Savage Jacob MDHemoglobin (Bld) [Mass/Vol]12.6 g/dLNormal 12.0-18.0[facility] CenterComment on above:Performed By: #### CDP, PFA, CP, GLYHGB #### [facility] [address] [place] [address] 69391 Executive Officer: ALISSA BarahonaetHb0.8 %Normal0.0-1.5[facility] CenterComment on above:Performed By: #### CDP, PFA, CP, GLYHGB #### [facility] [address] [place] [address] 91631 Executive Officer: Savage Jacob MDO2 Nuqndyf75 vol %Normal6-15[facility] CenterComment on above:Performed By: #### CDP, PFA, CP, GLYHGB #### [facility] [address] [place] [address] 6[address]12 Executive Officer: Savage Jacob MDOxygen saturation in Blood65.6 %Wrbfja35-44AtbzvUniversity Hospitals Beachwood Medical CenterComment on above:Performed By: #### CDP, PFA, CP, GLYHGB #### [facility] [address] [place] [address] [id number] Executive Officer: Savage Jacob MDOxygen Bqjvrh35QpnvhaQgvtmUniversity Hospitals Beachwood Medical CenterComment on above:Performed By: #### CDP, PFA, CP, GLYHGB #### [facility] [address] [place] [address] [id number] Executive Officer: CASEY BarahonaALCIUM, IONIC (POC)on [id number] Ionized Calcium1.19 mmol/L1.15 - 1.33 mmol/LMtrinity health system [facility] Health- [place], KYPOC Ionized Calcium1.23 mmol/L1.15 - 1.33 mmol/LMhocking valley community hospitaly Health- [place], KYPOC Ionized Calcium1.23 mmol/L1.15 - 1.33 mmol/LMhocking valley community hospitaly Health- [place], KYCALCIUM, IONIZEDon [id number], Ion1.26 mmol/L1.13 - 1.33 mmol/LMercy Health- [place], KYCalcium, Ion1.16 mmol/L1.13 - 1.33 mmol/LMercy Health- [place], KYCBCon [id number] distribution width (RBC) [Ratio]15.3 %High11.8-14.4[facility] CenterComment on above: Performed By: #### PT, PTT #### [facility] [address] [place] [address] 94221 Executive Officer: Savage Jacob MDHematocrit (Bld) [Volume fraction]26.4 %Low 36.3-47.1MEmanate Health/Foothill Presbyterian HospitalComment on above:Performed By: #### PT, PTT #### [facility] [address] [place] [address] [id number] Executive Officer: Savage Jacob MDHemoglobin (Bld) [Mass/Vol]9.1 g/dLLow11.9-15.1 [facility] CenterComment on above:Performed By: #### PT, PTT #### [address] [address] Executive Officer: ALISSA BarahonaCH (RBC) [Entitic mass]29.0 vaXnfydi09.2-33.5 [facility] CenterComment on above:Performed By: #### PT, PTT #### [place] [address] Executive Officer: ALISSA BarahonaCHC (RBC) [Mass/Vol]34.5 g/qDFzgcxq79.4-34.8 [facility] CenterComment on above:Performed By: #### PT, PTT #### [place] [address] Executive Officer: ALISSA BarahonaCV (RBC) [Entitic vol]84.1 aKEjiuxy47.6-102.9 [facility] CenterComment on above:Performed By: #### PT, PTT #### [place] [address] Executive Officer: Savage Jacob MDNRJOSH Automated0.0 per 100 WBCNormal0.0[facility] CenterComment on above:Performed By: #### PT, PTT #### [place] [address] Executive Officer: HALEY Barahonalatelet mean volume (Bld) [Entitic vol]9.4 fL Normal8.1-13.5[facility] CenterComment on above:Performed By: #### PT, PTT #### [place] [address] Executive Officer: ISABELLE BarahonaBC (Bld) [#/Vol]3.14 10*6/uLLow3.95-5.11[facility] CenterComment on above:Performed By: #### PT, PTT #### [facility] [address] [place], [place] [id number] Executive Officer: Savage Jacob MDWBC (Bld) [#/Vol]8.2 10*3/uLNormal3.5-11.3[facility] Of West CovinaComment on above:Performed By: #### PT, PTT #### [facility] [address] [place], [place] [id number] Executive Officer: Savage Jacob MDErythrocyte distribution width (RBC) [Ratio]15.3 %High11.8 - 14.4 %[facility]- [place], KYHematocrit (Bld) [Volume fraction]26.4 % Low36.3 - 47.1 %[facility]- [place], KYHemoglobin (Bld) [Mass/Vol]9.1 g/dLLow11.9 - 15.1 g/dLUniversity Hospitals [facility] [place], KYInterpretation and review of laboratory results AbnormalUniversity Hospitals Geneva [facility], KYMCH (RBC) [Entitic mass]29.0 pg25.2 - 33.5 pgUniversity Hospitals Conneaut Medical [facility] [place], KYMCHC (RBC) [Mass/Vol]34.5 g/dL28.4 - 34.8 g/dLSt. [facility]- [place], [place] MCV (RBC) [Entitic vol]84.1 fL82.6 - 102.9 fLSt. Mary'S Medical [facility]- [place], KYPlatelet mean volume (Bld) [Entitic vol]9.4 fL8.1 - 13.5 fLSt. Mary'S Medical Center[facility]- [place], KYPlatelets (Bld) [#/Vol]87 10*3/uLLowSt. Mary[facility]S [facility]- [place], KYRBC (Bld) [#/Vol]3.14 10*6/uLLow3.95 - 5.11 m/uLSt. Mary'S [facility]- [place], KYWBC (Bld) [#/Vol]0.0 10*3/uL0.0 per 100 WBCSt. Mary'S [facility]- [place], KYWBC (Bld) [#/Vol]8.2 10*3/uLSt. Mary'S [facility]- [place], KYErythrocyte distribution width (RBC) [Ratio]14.7 %High11.8-14.4[facility] CenterComment on above:Performed By: #### CDP, PFA, CP, GLYHGB #### [address] [address] Executive Officer: Savage Jacob MDHematocrit (Bld) [Volume fraction]28.0 %Low 36.3-47.1MEmanate Health/Foothill Presbyterian HospitalComment on above:Performed By: #### CDP, PFA, CP, GLYHGB #### [place] [address] Executive Officer: Savage Jacob MDHemoglobin (Bld) [Mass/Vol]9.5 g/dLLow11.9-15.1 [facility] CenterComment on above:Performed By: #### CDP, PFA, CP, GLYHGB #### [place] [address] Executive Officer: ALISSA BarahonaCH (RBC) [Entitic mass]28.5 wbLgiqnl56.2-33.5 [facility] CenterComment on above:Performed By: #### CDP, PFA, CP, GLYHGB #### [facility] [address] [place] [address] Executive Officer: ALISSA BarahonaCHC (RBC) [Mass/Vol]33.9 g/mOHnipxf55.4-34.8 [facility] CenterComment on above:Performed By: #### CDP, PFA, CP, GLYHGB #### [place] [address] Executive Officer: ALISSA BarahonaCV (RBC) [Entitic vol]84.1 fBOxmbso34.6-102.9 [facility] CenterComment on above:Performed By: #### CDP, PFA, CP, GLYHGB #### [place] [address] Executive Officer: Savage Jacob MDNRBC Automated0.0 per 100 WBCNormal0.0[facility] CenterComment on above:Performed By: #### CDP, PFA, CP, GLYHGB #### [address] [address] Executive Officer: Taylor Barahonatemartine mean volume (Bld) [Entitic vol]9.3 fL Normal8.1-13.5[facility] CenterComment on above:Performed By: #### CDP, PFA, CP, GLYHGB #### [facility] [address] [place] [address] Executive Officer: HALEY Barahonalatelets (Bld) [#/Vol]51 10*3/hYKdg211-981JlprbUniversity Hospitals [facility]wood Medical CenterComment on above:Performed By: #### CDP, PFA, CP, GLYHGB #### [facility] [address] [place] [address] Executive Officer: ISABELLE BarahonaBC (Bld) [#/Vol]3.33 10*6/uLLow3.95-5.11[facility] CenterComment on above:Performed By: #### CDP, PFA, CP, GLYHGB #### [address] [address] Executive Officer: Savage Jacob MDWBC (Bld) [#/Vol]8.8 10*3/uLNormal3.5-11.3MEmanate Health/Foothill Presbyterian HospitalComment on above:Performed By: #### CDP, PFA, CP, GLYHGB #### [facility] [address] [place] [address] Executive Officer: Savage Jacob MDErythrocyte distribution width (RBC) [Ratio]14.7 %High11.8 - 14.4 %[facility], KYHematocrit (Bld) [Volume fraction]28.0 % Low36.3 - 47.1 %[place], KYHemoglobin (Bld) [Mass/Vol]9.5 g/dLLow11.9 - 15.1 g/dLAlexander, KYInterpretation and review of laboratory results AbnormalAlexander, KYMCH (RBC) [Entitic mass]28.5 pg25.2 - 33.5 pgAlexander, KYMCHC (RBC) [Mass/Vol]33.9 g/dL28.4 - 34.8 g/dLAlexander, [place] MCV (RBC) [Entitic vol]84.1 fL82.6 - 102.9 fLAlexander, KYPlatelet mean volume (Bld) [Entitic vol]9.3 fL8.1 - 13.5 fLAlexander, KYPlatelets (Bld) [#/Vol]51 10*3/uLLowAlexander, KYRBC (Bld) [#/Vol]3.33 10*6/uLLow3.95 - 5.11 m/uLUniversity Hospitals Geneva Medical Center, ORWBC (Bld) [#/Vol]8.8 10*3/uLAlexander, [place]WBC (Bld[place] [#/Vol]0.0 10*3/uL0.0 per 100 WBCAlexander, KYCBC with Diffon [id number]. Basophil0.06 k/uLNormal0.00-0.20[facility] Comment on above:Performed By: #### CDP, PFA, CP, GLYHGB #### [facility] [address] [place], [place] [id number] Executive Officer: Shea Barahona.Imm.Granulocyte0.21 k/uLNormal0.00-0.30[facility] CenterComment on above:Performed By: #### CDP, PFA, CP, GLYHGB #### [facility] [address] [place], [place] [id number] Executive Officer: Savage Madoff, MDAbs.Neutrophil (Seg)14.05 k/uLHigh1.50-8.10[facility] CenterComment on above:Performed By: #### CDP, PFA, CP, GLYHGB #### [facility] [address] [place] [address] Executive Officer: Savage Jacob MDBasophils/100 WBC (Bld)0 %Normal0-2MercGreater El Monte Community HospitalComment on above:Performed By: #### CDP, PFA, CP, GLYHGB #### [facility] [address] [place] [address] Executive Officer: Savage Jacob MDEosinophils (Bld) [#/Vol]0.14 10*3/uLNormal 0.00-0.44[facility] CenterComment on above:Performed By: #### CDP, PFA, CP, GLYHGB #### [facility] [address] [place] [address] Executive Officer: TIERA Barahonaosinophils/100 WBC (Bld)1 %Normal1-4[facility] CenterComment on above:Performed By: #### CDP, PFA, CP, GLYHGB #### [facility] [address] [place] [address] Executive Officer: Savage Jacob MDErythrocyte distribution width (RBC) [Ratio]14.5 %High11.8-14.4[facility] CenterComment on above:Performed By: #### CDP, PFA, CP, GLYHGB #### [facility] [address] [place] [address] Executive Officer: Savage Jacob MDHematocrit (Bld) [Volume fraction]37.0 %Normal 36.3-47.1MEmanate Health/Foothill Presbyterian HospitalComment on above:Performed By: #### CDP, PFA, CP, GLYHGB #### [facility] [address] [place] [address] Executive Officer: Savage Jacob MDHemoglobin (Bld) [Mass/Vol]12.8 g/dLNormal 11.9-15.1MEmanate Health/Foothill Presbyterian HospitalComment on above:Performed By: #### CDP, PFA, CP, GLYHGB #### [address] [address] Executive Officer: Savage Jacob MDImmature granulocytes (Bld) [#/Vol]1 %Kczn7XwsacUniversity Hospitals Beachwood Medical CenterComment on above:Performed By: #### CDP, PFA, CP, GLYHGB #### [place] [address] Executive Officer: Savage Jacob MDLymphocytes (Bld) [#/Vol]1.73 10*3/uLNormal 1.10-3.70[facility] CenterComment on above:Performed By: #### CDP, PFA, CP, GLYHGB #### [place] [address] Executive Officer: Kathie Barahonamphocytes/100 WBC (Bld)10 %Osl27-40AacppUniversity Hospitals Beachwood Medical CenterComment on above:Performed By: #### CDP, PFA, CP, GLYHGB #### [place] [address] Executive Officer: ALISSA BarahonaCH (RBC) [Entitic mass]29.2 olKaaddn81.2-33.5 [facility] CenterComment on above:Performed By: #### CDP, PFA, CP, GLYHGB #### [facility] [address] [place] [address] Executive Officer: ALISSA BarahonaCHC (RBC) [Mass/Vol]34.6 g/jNAtbojj42.4-34.8 [facility] CenterComment on above:Performed By: #### CDP, PFA, CP, GLYHGB #### [address] [address] Executive Officer: ALISSA BarahonaCV (RBC) [Entitic vol]84.3 iYUofsfr29.6-102.9 [facility] CenterComment on above:Performed By: #### CDP, PFA, CP, GLYHGB #### [place] [address] Executive Officer: ALISSA Barahonaonocytes (Bld) [#/Vol]1.07 10*3/uLNormal 0.10-1.20[facility] CenterComment on above:Performed By: #### CDP, PFA, CP, GLYHGB #### [place] [address] Executive Officer: ALISSA Barahonaonocytes/100 WBC (Bld)6 %Normal3-12[facility] CenterComment on above:Performed By: #### CDP, PFA, CP, GLYHGB #### [place] [address] Executive Officer: Jero Barahonaophil (Seg)82 %Ezyx68-95KdlksUniversity Hospitals Beachwood Medical CenterComment on above:Performed By: #### CDP, PFA, CP, GLYHGB #### [place] [address] Executive Officer: Savage Jacob MDNRBC Automated0.0 per 100 WBCNormal0.0[facility] CenterComment on above:Performed By: #### CDP, PFA, CP, GLYHGB #### [address] [address] Executive Officer: HALEY Barahonalatelet mean volume (Bld) [Entitic vol]8.9 fL Normal8.1-13.5[facility] CenterComment on above:Performed By: #### CDP, PFA, CP, GLYHGB #### [facility] [address] [place] [address] Executive Officer: Taylor Barahonatejimbo (Bld) [#/Vol]75 10*3/bEAoc006-308XegiiUniversity Hospitals Beachwood Medical CenterComment on above:Performed By: #### CDP, PFA, CP, GLYHGB #### [facility] [address] [place] [address] Executive Officer: ISABELLE BarahonaBC (Bld) [#/Vol]4.39 10*6/uLNormal3.95-5.11 [facility] CenterComment on above:Performed By: #### CDP, PFA, CP, GLYHGB #### [address] [address] Executive Officer: MELISSA Barahona morphology finding Nom (Bld)ANISOCYTOSIS PRESENTSelect Medical Specialty Hospital - ColumbusComment on above:Performed By: #### CDP, PFA, CP, GLYHGB #### [address] [address] Executive Officer: PETR Barahona (Bld) [#/Vol]17.3 10*3/uLHigh3.5-11.3Mhocking valley community hospitaly Doctors Hospital Of West CovinaComment on above:Performed By: #### CDP, PFA, CP, GLYHGB #### [facility] [address] [place] [address] Executive Officer: Samir Barahona Diff PerformedNOT REPORTEDNoalUniversity Hospitals Beachwood Medical CenterComment on above:Performed By: #### CDP, PFA, CP, GLYHGB #### [facility] [address] [place] [address] Executive Officer: Rico Barahona (Bld) [#/Vol]NOT REPORTEDSelect Medical Specialty Hospital - ColumbusComment on above:Performed By: #### CDP, PFA, CP, GLYHGB #### [facility] [address] [place] [address] Executive Officer: PETR Barahona MorphologyNOT REPORTEDSelect Medical Specialty Hospital - ColumbusComment on above:Performed By: #### CDP, PFA, CP, GLYHGB #### [facility] [address] [place] [address] Executive Officer: Savage Jacob, MDCHLORIDE (POC)on 22-25-1673HCH Dszkjmvc021 mmol/LHigh98 - 107 mmol/LMtrinity health system twin [facility] Health- [place], KYPOC Ebyxmgww594 mmol/LHigh98 - 107 mmol/LMercy Health- [place], KYPOC Mlqymysu355 mmol/LHigh98 - 107 mmol/LMercy Health- [place], KYCalcium, Ionicon 58-10-5716Rxzpife [Mass/Vol]1.26 mmol/LNormal1.13-1.33 [facility] CenterComment on above:Performed By: #### PT, PTT #### [facility] [address] [place] [address] Executive Officer: Savage Jacob MDCalcium [Mass/Vol]1.16 mmol/LNormal1.13-1.33 [facility] CenterComment on above:Performed By: #### PT, PTT #### [facility] [address] [place] [address] Executive Officer: Savage Jacob MDCalcium [Mass/Vol]1.14 mmol/LNormal1.13-1.33 [facility] CenterComment on above:Performed By: #### CDP, PFA, CP, GLYHGB #### [facility] [address] [place] [address] Executive Officer: Savage Jacob MDCalcium [Mass/Vol]1.32 mmol/LNormal1.13-1.33 [facility] CenterComment on above:Performed By: #### CDP, PFA, CP, GLYHGB #### [facility] [address] [place], [place] [id number] Executive Officer: Janae Barahona W/GFR Point of Careon 63-49-4864KQC Zftgbzi52 mL/minLow>60[facility]- [place], [place]GFR CommentMercy Health- [place], [place]GFR Non- Efiexoih84 mL/minLow>60[facility]- [place], KYPOC Creatinine1.46 mg/dL High0.51 - 1.19 mg/dLMercy Health- [place], KYGFR CommentMercy Health- [place], [place]GFR Gyfdrjb50 mL/minLow>60[facility]- [place], [place]GFR Non- Qwytmxxs41 mL/minLow >60[facility]- [place], KYPOC Creatinine1.27 mg/dLHigh0.51 - 1.19 mg/dLMercy Health- [place], KYGFR CommentMercy Health- [place], [place]GFR Uhfhpyt81 mL/minLow>60[facility]- [place], [place]GFR Non- Klnqsern35 mL/minLow>60[facility]- [place], KYPOC Creatinine1.23 mg/dLHigh0.51 - 1.19 mg/dLMercy Health- [place], KYCult,Urineon 27-78-3507Mzbi,UrineSpecimen Description .CATHETERIZED URINE Special Requests NOT REPORTED Culture NO GROWTH Report Status FINAL 07/04/2019[facility] Hospital - ColumbusComment on above:Performed By: #### PT, PTT #### [facility] [address] [place], [place] [id number] Executive Officer: JONG Barahona 12 Leadon 18-94-0415Kixwrb Ddgb54IYEQfnoi Health- [place], KYP Nonb23xfzfanmZwzyr Health- [place], KYP-R Ihwxxjdt714 msMercy Health- [place], KYQ-T Lugijlzd797 msMercy Health- [place], KYQRS Dmfanxhy170 msMercy Health- [place], KYQTc Calculation (Chandrika)611 msMercy Health- [place], KYR [place]-3degreesMercy Health- [place], KYT Aomw579hitaqccJdoaz Health- [place], KYVentricular Qhvt85VMRXlmnb Health- [place], KYMercy Health- [place], KYMercy Health- [place], KYAtrial Uofv40CZMIrook Health- [place], KYP Hpzw03oteinpsTuafd Health- [place], [place]YP-R Vpcgyvfl529 msMercy Health- [place], KYQ-T Wyiosruy038 msMercy Health- [place], KYQRS Tljidgck907 msMercy Health- [place], KYQTc Calculation ()604 msMercy Health- [place], KYR Tnlr9ixibkfzNpwub Health- [place], KYT Wdbs789kulgfonLralq Health- [place], KYVentricular Fofx27SZMAjbds Health- [place], KYEKG 12 leadon 59-43-9405Irmsup Psvm22ADMRoqav Health- [place], [place] Axis54 degreesMercy Health- [place], [place]-R Geziogmc589 msMercy Health- [place], KYQ-T Gaqnymtb628 msMercy Health- [place], KYQRS Qirqscdd915 msMercy Health- [place], KYQTc Calculation ()547 msMercy Health- [place], KYR [place]-59degreesMercy Health- [place], KYT Axis98 degreesMercy Health- [place], KYVentricular Xzkm17WMXZhvep Health- [place], KYFFP, Transfuseon 07-77-2795XST, TransfuseUnit Number [id number] Blood Component Type Fresh Plasma Unit Division 00 Status of Unit TRANSFUSED Transfusion Status OK TO TRANSFUSENormalUniversity Hospitals Beachwood Medical CenterComment on above:Performed By: #### PT, PTT #### [facility] [address] [place] [address] [id number] Executive Officer: JANKI Barahona, TransfuseUnit Number [id number] Blood Component Type Fresh Plasma Unit Division 00 Status of Unit TRANSFUSED Transfusion Status OK TO TRANSFOKLAHOMA FORENSIC CENTER – VINITAormalUniversity Hospitals Beachwood Medical CenterComment on above:Performed By: #### PT, PTT #### [facility] [address] [place] [address] [phone] Executive Officer: Savage Jacob MDFibrinogenon 70-94-7174Vssunsnugk<80Critically tod447-749FshkjUniversity Hospitals Beachwood Medical CenterComment on above:Performed By: #### CDP, PFA, CP, GLYHGB #### [facility] [address] [place] [address] [phone] Executive Officer: Savage Jacob MDHEMOGLOBIN AND HEMATOCRIT, BLOODon 07-04-2019 Hematocrit (Bld) [Volume fraction]24.5 %Low36.3 - 47.1 %[place], [place] Hemoglobin (Bld) [Mass/Vol]8.3 g/dLLow11.9 - 15.1 g/dLAlexander, [place] Interpretation and review of laboratory resultsAbnormalUniversity Hospitals [facility], [place] Hematologyon 10-13-5632Equyu product type Nom (BPU)Fresh PlasmaAlexander, KYHemoglobin and hematocrit, bloodon 68-13-2659VZS Dyvujycioj37 %Low36 - 46 % [facility], ORPO Hemoglobin8.1 g/dLLow12 - 16 g/dLUniversity Hospitals Geneva Medical Center, ORPOC Xwxonabuxu38 %Low36 - 46 %[facility], ORPO Hemoglobin8.5 g/dLLow12 - 16 g/dLUniversity Hospitals Geneva Medical Center, ORPO Zfkgtgaguw82 %Low36 - 46 %[facility], ORPO Hemoglobin8.5 g/dLLow12 - 16 g/dLUniversity Hospitals Geneva Medical Center, ORHgb/Hcton 07-04-2019 Hematocrit (Bld) [Volume fraction]24.5 %Low36.3-47.1MEmanate Health/Foothill Presbyterian HospitalComment on above:Performed By: #### PT, PTT #### [facility] [address] [place] [address] [phone] Executive Officer: Savage Jacob MDHemoglobin (Bld) [Mass/Vol]8.3 g/dLLow11.9-15.1 [facility] CenterComment on above:Performed By: #### PT, PTT #### [facility] [address] [place] [address] Executive Officer: Savage Jacob MDK (Potassium)on 45-27-4116Fjtxyyoxa [Moles/Vol] 4.4 mmol/LNormal3.7-5.3Mhocking valley community hospitaly [facility] Hospital Of West CovinaComment on above: Performed By: #### PT, PTT #### [facility] [address] [place] [address] Executive Officer: ANDREA BarahonaCTIC ACID, WHOLE BLOODon 73-28-0216Rolpqa Acid, Whole Blood1.8 mmol/L0.7 - 2.1 mmol/[facility] [place], KYLactic Acid, Whole Blood2.1 mmol/L0.7 - 2.1 mmol/[facility] [place], KYLactic Acid, POCon 81-78-8990BPE Lactic Acid1.70 mmol/LHigh0.56 - 1.39 mmol/[facility] [place], [place] POC Lactic Acid3.63 mmol/LHigh0.56 - 1.39 mmol/[facility] [place], KYPOC Lactic Acid5.10 mmol/LHigh0.56 - 1.39 mmol/[facility] [place], KYLactic Acid,Whole Blon 77-14-3075Awwqmv Acid,Whole Bl1.8 mmol/LNormal0.7-2.1MEmanate Health/Foothill Presbyterian HospitalComment on above:Performed By: #### PT, PTT #### [facility] [address] [place] [address] Executive Officer: Andrea Barahonactic Acid,Whole Bl2.1 mmol/LNormal0.7-2.1MEmanate Health/Foothill Presbyterian HospitalComment on above:Performed By: #### PT, PTT #### [facility] [address] [place] [address] Executive Officer: Andrea Barahonactic Acid,Whole Bl7.8 mmol/LHigh0.7-2.1MEmanate Health/Foothill Presbyterian HospitalComment on above:Performed By: #### CDP, PFA, CP, GLYHGB #### [facility] [address] [place] [address] Executive Officer: Debbie Barahona Profileon 24-50-1926Bgbbxdn [Mass/Vol]3.2 g/dLLow3.5-5.2Mhocking valley community hospitaly [facility] West CovinaComment on above:Performed By: #### CDP, PFA, CP, GLYHGB #### [facility] [address] [place] [address] Executive Officer: Savage Jacob MDAlbumin/Globulin [Mass ratio]2.9 {ratio}High 1.0-2.5[facility] CenterComment on above:Performed By: #### CDP, PFA, CP, GLYHGB #### [facility] [address] [place] [address] Executive Officer: Mino Barahonaline Phos20 U/HDnw48-702OtayvUniversity Hospitals Beachwood Medical CenterComment on above:Performed By: #### CDP, PFA, CP, GLYHGB #### [facility] [address] [place] [address] Executive Officer: Savage aJcob MDALT [Catalytic activity/Vol]161 U/LHigh5-33[facility] CenterComment on above:Performed By: #### CDP, PFA, CP, GLYHGB #### [facility] [address] [place] [address] Executive Officer: Savage Jacob MDAST [Catalytic activity/Vol]195 U/LHigh<32[facility] CenterComment on above:Performed By: #### CDP, PFA, CP, GLYHGB #### [facility] [address] [place] [address] Executive Officer: Savage Jacob MDBilirubin Ql (U)0.70 mg/dLNormal0.3-1.2MEmanate Health/Foothill Presbyterian HospitalComment on above:Performed By: #### CDP, PFA, CP, GLYHGB #### [facility] [address] [place] [address] Executive Officer: Sammie Barahonairubin, Indirect0.52 mg/dLNormal0.00-1.00 [facility] CenterComment on above:Performed By: #### CDP, PFA, CP, GLYHGB #### [facility] [address] [place] [address] Executive Officer: Sammie Barahonairubin.direct [Mass/Vol]0.18 mg/dLNormal<0.31 [facility] CenterComment on above:Performed By: #### CDP, PFA, CP, GLYHGB #### [facility] [address] [place] [address] Executive Officer: HALEY Barahonarotein [Mass/Vol]4.3 g/dLLow6.4-8.3MEmanate Health/Foothill Presbyterian HospitalComment on above:Performed By: #### CDP, PFA, CP, GLYHGB #### [facility] [address] [place] [address] Executive Officer: Savage Jacob MDGlobulin (S) [Mass/Vol]NOT REPORTEDNormal1.5-3.8 [facility] CenterComment on above:Performed By: #### CDP, PFA, CP, GLYHGB #### [facility] [address] [place] [address] Executive Officer: Savage Jacob MDMAGNESIUMon 22-36-3776Lixisludf [Mass/Vol]2.3 mg/dL1.6 - 2.6 mg/dLUniversity Hospitals Geneva Medical Center, KYMagnesium [Mass/Vol]2.4 mg/dL1.6 - 2.6 mg/dLUniversity Hospitals Geneva Medical Center, KYMagnesium [Mass/Vol]2.3 mg/dL1.6 - 2.6 mg/dLUniversity Hospitals Geneva Medical Center, KYMagnesiumon 1948Cquwhgsbt [Mass/Vol]2.3 mg/dLNormal1.6-2.6 [facility] CenterComment on above:Performed By: #### UA, UMICAO #### [facility] [address] [place] [address] Executive Officer: Savage Archerkatie, MDMagnesium [Mass/Vol]2.4 mg/dLNormal1.6-2.6[facility] West CovinaComment on above:Performed By: #### PT, PTT #### [address] [address] Executive Officer: Savage Archerkatie, MDMagnesium [Mass/Vol]2.3 mg/dLNormal1.6-2.6[facility] West CovinaComment on above:Performed By: #### PT, PTT #### [facility] [address] [place] [address] Executive Officer: Savageellyn Jacob, MDMagnesium [Mass/Vol]2.2 mg/dLNormal1.6-2.6[facility] West CovinaComment on above:Performed By: #### PT, PTT #### [address] [address] Executive Officer: Savage Jacob, MDMagnesium [Mass/Vol]2.2 mg/dL1.6 - 2.6 mg/dL [facility], KYMagnesium [Mass/Vol]2.5 mg/dLNormal1.6-2.6[facility] West CovinaComment on above:Performed By: #### CDP, PFA, CP, GLYHGB #### [facility] [address] [place] [address] Executive Officer: Savage Jacob, MDMagnesium [Mass/Vol]2.6 mg/dLNormal1.6-2.6[facility] Of West CovinaComment on above:Performed By: #### CDP, PFA, CP, GLYHGB #### [facility] [address] [place] [address] Executive Officer: KAREN Barahona HEART COAGon 25-27-8052cLYU Coag (Bld) [Time]37.7 [facility], VRPcqqpwseig364 mg/dL140 - 420 mg/dLUniversity Hospitals Geneva Medical Center, KYINR Coag (PPP) [Relative time]1.2 {INR}[facility], [place] Interpretation and review of laboratory resultsAbnoTriHealth Good Samaritan Hospital, [place] Platelets (Bld) [#/Vol]80 10*3/uLKindred Hospital Dayton, KYPT Coag (PPP) [Time]12.9 [facility], KYaPTT Coag (Bld) [Time]50.4 [facility], [place] Vubzkbmrly166 mg/mGRyj249 - 420 mg/dLUniversity Hospitals Geneva Medical Center, KYINR Coag (PPP) [Relative time]1.3 {INR}[facility], ORInterpretation and review of laboratory resultsAbnoTriHealth Good Samaritan Hospital, KYPlatelets (Bld) [#/Vol]87 10*3/uL [facility], KYPT Coag (PPP) [Time]13.7 [facility], KYaPTT Coag (Bld) [Time]31.7 [facility], EQDsmlwdlkut56 mg/qAVfm625 - 420 mg/dLUniversity Hospitals Geneva Medical Center, KYINR Coag (PPP) [Relative time]1.4 {INR}[facility], KYInterpretation and review of laboratory resultsAbPomerene Hospital, KYPlatelets (Bld) [#/Vol]68 10*3/uLKindred Hospital Dayton, KYPT Coag (PPP) [Time] 14.7 [facility], KYOpen Heart Coagon 71-02-8504zYSW Coag (Bld) [Time] 37.7 [facility] Sterlingh20.5-30.5[facility] CenterComment on above:Performed By: #### PT, PTT #### [facility] [place] [address] Executive Officer: Savage Jacob MDFibrinogen151 mg/vDZvioos451-086LjhqgUniversity Hospitals Beachwood Medical CenterComment on above:Performed By: #### PT, PTT #### [address] [address] Executive Officer: ARLET Barahona Coag (PPP) [Relative time]1.2 {INR}Normal [facility] CenterComment on above:Result Comment: Therapeutic Range: Moderate Anticoagulant Intensity: INR = 2.0-3.0 High Anticoagulant Intensity: INR = 2.5-3.5Performed By: #### PT, PTT #### [address] [address] Executive Officer: RIGO Barahona Coag (PPP) [Time]12.9 sHigh9.0-12.0[facility] CenterComment on above:Performed By: #### PT, PTT #### [address] [address] Executive Officer: Rico Barahona (Bld) [#/Vol]80 10*3/lTZor741-283RespgUniversity Hospitals Beachwood Medical CenterComment on above:Performed By: #### PT, PTT #### [address] [address] Executive Officer: Shalom Barahona Coag (Bld) [Time]50.4 sHigh20.5-30.5[facility] CenterComment on above:Performed By: #### PT, PTT #### [address] [address] Executive Officer: Savage Jacob MDFibrinogen125 mg/zRUhm428-955RbyzqUniversity Hospitals Beachwood Medical CenterComment on above:Performed By: #### PT, PTT #### [facility] [address] [place] [address] Executive Officer: ARLET Barahona Coag (PPP) [Relative time]1.3 {INR}Normal [facility] CenterComment on above:Result Comment: Therapeutic Range: Moderate Anticoagulant Intensity: INR = 2.0-3.0 High Anticoagulant Intensity: INR = 2.5-3.5Performed By: #### PT, PTT #### [address] [address] Executive Officer: RIGO Barahona Coag (PPP) [Time]13.7 sHigh9.0-12.0[facility] Medical CenterComment on above:Performed By: #### PT, PTT #### [address] [address] Executive Officer: Rico Barahona (Bld) [#/Vol]87 10*3/mGUgu917-770SsczoUniversity Hospitals Beachwood Medical CenterComment on above:Performed By: #### PT, PTT #### [address] [address] Executive Officer: Savage Jacob MDaPTJuanita Coag (Bld) [Time]31.7 sHigh20.5-30.5[facility] Medical CenterComment on above:Performed By: #### CDP, PFA, CP, GLYHGB #### [address] [address] Executive Officer: Savage Jacob MDFibrinogen99 mg/aTXry506-886IxrzjUniversity Hospitals Beachwood Medical CenterComascension borgess allegan hospital on above:Performed By: #### CDP, PFA, CP, GLYHGB #### [address] [address] Executive Officer: ARLET Barahona Coag (PPP) [Relative time]1.4 {INR}Normal [facility] CenterComment on above:Result Comment: Therapeutic Range: Moderate Anticoagulant Intensity: INR = 2.0-3.0 High Anticoagulant Intensity: INR = 2.5-3.5Performed By: #### CDP, PFA, CP, GLYHGB #### [facility] [address] [place] [address] Executive Officer: RIGO Barahona Coag (PPP) [Time]14.7 sHigh9.0-12.0[facility] CenterComment on above:Performed By: #### CDP, PFA, CP, GLYHGB #### [facility] [address] [place] [address] Executive Officer: Rico Barahona (Bld) [#/Vol]68 10*3/pXKbu630-884FxqhkUniversity Hospitals Beachwood Medical CenterComment on above:Performed By: #### CDP, PFA, CP, GLYHGB #### [facility] [address] [place] [address] Executive Officer: Savage Jacob MDFibrinogen<80Critically rzb345-695ZshflUniversity Hospitals Beachwood Medical CenterComment on above:Performed By: #### CDP, PFA, CP, GLYHGB #### [facility] [address] [place] [address] Executive Officer: ARLET Barahona Coag (PPP) [Relative time]3.2 {INR}Normal [facility] CenterComment on above:Result Comment: Therapeutic Range: Moderate Anticoagulant Intensity: INR = 2.0-3.0 High Anticoagulant Intensity: INR = 2.5-3.5Performed By: #### CDP, PFA, CP, GLYHGB #### [facility] [address] [place] [address] Executive Officer: RIGO Barahona Coag (PPP) [Time]31.0 sHigh9.0-12.0[facility]als Beachwood Medical CenterComment on above:Performed By: #### CDP, PFA, CP, GLYHGB #### [facility] [employer] [address] [place] [address] Executive Officer: Shalom Barahonag (Bld) [Time]85.9 sCritically high 20.5-30.5[facility]als Beachwood Medical CenterComment on above:Performed By: #### CDP, PFA, CP, GLYHGB #### [facility] [address] [place] [address] Executive Officer: Jovany Barahona [id number] Hospitals Geneva Medical Center, KYUniversity [facility]als [facility], KYInterpretation and review of laboratory resultsAbnormLakeHealth TriPoint Medical Center, KYTEG CommentNOT REPORTEDUniversity Hospitals [facility], KYInterpretation and review of laboratory resultsAbnoTriHealth Good Samaritan Hospital, [place]TE[place] CommentNOT REPORTED [facility], KYTEG CommentNOT REPORTED[facility], KYTE CommentNOT REPORTEDUniversity [facility], KYInterpretation and review of laboratory results AbnormalUniversity Hospitals Geneva Medical Center, KYDispense StatusTRANSFUSEMartin Memorial Hospital, [place] Transfusion StatusOK TO TRANSFUSEUniversity Hospitals Geneva Medical Center, KYUnit Wohvnie1YtpedUniversity Hospitals Geneva Medical Center, KYInterpretation and review of laboratory resultsAbnoTriHealth Good Samaritan Hospital, ORInterpretation and review of laboratory resultsAbnoTriHealth Good Samaritan Hospital, ORPO Glucose Fingerstickon [phone] and review of laboratory results AbnormalUniversity Hospitals Geneva [facility] Center, ORPO Shrysbk776 mg/hCWfrc98 - 105 mg/dLUniversity Hospitals Geneva Medical Center, ORPO Givgarw84 mg/dL65 - 105 mg/dLUniversity Hospitals Geneva [facility] Center, KYInterpretation and review of laboratory resultsAbnormLakeHealth TriPoint Medical Center, ORPO Xtnawxz656 mg/dLHigh 65 - 105 mg/dLUniversity Hospitals [facility], ORInterpretation and review of laboratory resultsAbnormLakeHealth TriPoint Medical Center, ORPO Ckrwcvk748 mg/iSUaxm34 - 105 mg/dLUniversity Hospitals Geneva Medical Center, ORPO Sxleddy348 mg/dXChbl98 - 105 mg/dLUniversity Hospitals Geneva Medical Center, [place] Interpretation and review of laboratory resultsAbnoTriHealth Good Samaritan Hospital, ORPO Jcryugt318 mg/vAFyhl85 - 105 mg/dLUniversity Hospitals Geneva Medical Center, KYPOC Kaolin TEGon 83-65-4618DHU Angle TEGNOT HZLUGIMM17 - 74 degMer[facility]- [place], KYPOC EPL TEGNOT REPORTED0 - 15 %[facility] [place], [place]POC Kinetics TEGNOT REPORTED1 - 3 min[facility]- [place], [place] LY30(Lysis) TEGNOT REPORTED0 - 8 %[facility] MA(Max Clot) TEGNOT ECMSJJOL46 - 74 mmMercy [facility]- [place], [place] Reaction Time TEG 19.6 minHigh4 - 9 min[facility]- [place], [place] Angle TEGNOT TEFEKOXA50 - 74 deg [facility], [place]YPOC EPL TEGNOT REPORTED0 - 15 %[facility] Kinetics TEGNOT REPORTED1 - 3 min[facility]- [place], [place] LY30(Lysis) TEGNOT REPORTED0 - 8 %[facility], [place]PO MA(Max Clot) TEGNOT VPIQKJXE29 - 74 mm [facility], [place]PO Reaction Time TEG28.0 minHigh4 - 9 minMer [facility]- [place], KYInterpretation and review of laboratory resultsAbnormalMercy Health- [place], [place]PO Angle TEG49.1 gluBfp92 - 74 degMer[facility]- [place], [place] EPL TEGNOT REPORTED0 - 15 %[facility], [place] Kinetics TEG3.5 minHigh1 - 3 minMer [facility]- [place], [place] LY30(Lysis) TEGNOT REPORTED0 - 8 %[facility], [place]PO MA(Max Clot) TEG 60.7 mm55 - 74 mmMer Health- [place], [facility] Reaction Time TEG10.2 minHigh4 - 9 min [facility], KYInterpretation and review of laboratory resultsAbnormalMercy Health- [place], [place] Angle TEG59.9 deg59 - 74 degMer[facility]- [place], [place] EPL TEG 0.0 %0 - 15 %[facility] Kinetics TEG2.3 min1 - 3 min[facility]- [place], [place] LY30(Lysis) TEG0.0 %0 - 8 %[facility] MA(Max Clot) TEG 70.6 mm55 - 74 mmMercy Health- [place], [place] Reaction Time TEG11.4 minHigh4 - 9 min [facility] [place], [place]PO Kaolin TEG with Heparinon [id number] Angle TEG w Hep 16.1 ckfTaj07 - 74 degK[facility]- [place], [place] EPL TEG W/HEPNOT REPORTED0 - 15 % [facility]- [place], ORPO Kinetics TEG w Hep15.8 minHigh1 - 3 minK[facility]- [place], [place] LY30(Lysis) TEG w HepNOT REPORTED0 - 8 %[facility]- [place], [place]PO Max Clot TEG w Hep24.5 mmLow55 - 74 mmK[facility]- [place], [place]PO Reaction Time TEG w Hep14.2 minHigh4 - 9 minK[facility]- [place], [place]PO Angle TEG w HepNOT YKCZGCPQ59 - [address] [facility]- [place], [place]PO EPL TEG W/HEPNOT REPORTED0 - 15 %[facility]- [place], [place]PO Kinetics TEG w HepNOT REPORTED1 - [address] [place], [place]PO LY30(Lysis) TEG w HepNOT REPORTED0 - 8 %[facility]- [place], ORPO Max Clot TEG w HepNOT GMWPKQQQ68 - 74 mmK[facility]- [place], [place]PO Reaction Time TEG w Hep22.9 minHigh4 - [address] [facility], [facility] Angle TEG w Hep67.9 deg59 - 74 degSt[facility] [place], [place] POC EPL TEG W/HEPNOT REPORTED0 - 15 %[facility]- [place], ORPO Kinetics TEG w Hep 1.6 min1 - [address] min[facility] [place], [place]PO LY30(Lysis) TEG w HepNOT REPORTED0 - 8 % [facility]- [place], ORPO Max Clot TEG w Hep60.7 mm55 - 74 mmSt[facility] [place], [place] POC Reaction Time TEG w Hep7.6 min4 - 9 minK[facility]- [place], [place]PO Angle TEG w Hep73.0 deg59 - 74 degSt[facility] [place], [place] EPL TEG W/HEP2.9 %0 - 15 %[facility]- [place], ORPO Kinetics TEG w Hep1.2 min1 - [address] min[facility] [place], [place]PO LY30(Lysis) TEG w Hep2.9 %0 - 8 %[facility]- [place], [place]POC Max Clot TEG w Hep73.9 mm55 - 74 mmUniversity Hospitals [facility], KYPOC Reaction Time TEG w Hep7.0 min4 - 9 minUniversity [facility], KYPOCT Glucoseon [id number] Ggdfwat290 mg/sOPjpm45 - 100 mg/dL [facility], KYPOC Iklnjkz220 mg/aVClmz35 - 100 mg/dLUniversity Hospitals Geneva Medical Center, [place] POC Lltcznn865 mg/jECoxs36 - 100 mg/dLUniversity Hospitals Geneva Medical Center, ORPOTASSIUMon 07-04-2019 Potassium [Moles/Vol]4.4 mmol/L3.7 - 5.3 mmol/LMOur Lady of Mercy [facility], KYPOTASSIUM (POC)on 06-61-2041VMV Potassium3.9 mmol/L3.5 - 4.5 mmol/[facility], ORPOC Potassium4.4 mmol/L3.5 - 4.5 mmol/[facility], ORPOC Potassium3.6 mmol/L 3.5 - 4.5 mmol/[facility], ORPREPARE FRESH FROZEN PLASMA, 1 Unitson 87-56-7968Ytid [id number] Health- [place], KYUnit [id number] [facility], ORPREPARE PLATELETS, 1 Producton 92-61-4641Pyzcy product type Nom (BPU)Leukocyte Reduced Irradiated PlateletpheresisMOur Lady of [facility]cy [facility], KYUnit [id number] Health- [place], KYPTon 76-60-1324PIA Coag (PPP) [Relative time]1.4 {INR}NormalUniversity Hospitals Beachwood Medical CenterComment on above:Result Comment: Therapeutic Range: Moderate Anticoagulant Intensity: INR = 2.0-3.0 High Anticoagulant Intensity: INR = 2.5-3.5Performed By: #### CDP, PFA, CP, GLYHGB #### [employer] [address] [place] [address] Executive Officer: RIGO Barahona Coag (PPP) [Time]14.7 sHigh9.0-12.0[facility] Beachwood Medical CenterComment on above:Performed By: #### CDP, PFA, CP, GLYHGB #### [address] [address] Executive Officer: ARLET Barahona Coag (PPP) [Relative time]1.7 {INR}Normal [facility] Beachwood Medical CenterComment on above:Result Comment: Therapeutic Range: Moderate Anticoagulant Intensity: INR = 2.0-3.0 High Anticoagulant Intensity: INR = 2.5-3.5Performed By: #### CDP, PFA, CP, GLYHGB #### [address] [address] Executive Officer: RIGO Barahona Coag (PPP) [Time]17.0 sHigh9.0-12.0[facility] Beachwood Medical CenterComment on above:Performed By: #### CDP, PFA, CP, GLYHGB #### [address] [id number] Executive Officer: Rico BarahonaTransfuseon 07-04-2019 Platelets,TransfuseUnit Number [id number] Blood Component Type LkIrPlt PAS Unit Division 00 Status of Unit TRANSFUSED Transfusion Status OK TO [facility] HospitalComment on above:Performed By: #### UA, UMICAO #### [address] [address] Executive Officer: Rico BarahonaTransfuseUnit Number [id number] Blood Component Type Leukocyte Reduced Irradiated Plateletpheresis Unit Division 00 Status of Unit TRANSFUSED Transfusion Status OK TO [facility] HospitalComment on above:Performed By: #### PT, PTT #### [address] [id number] Executive Officer: Ric Barahonaime-INRon [phone] Coag (PPP) [Relative time]1.4 {INR}[facility], JERRYInterpretation and review of laboratory resultsAbnormLakeHealth TriPoint Medical Center, KYPT Coag (PPP) [Time]14.7 sHigUniversity Hospitals Beachwood Medical Center, KYSODIUM (POC)on 45-01-7508MGC Tlzebk847 mmol/SGgdg630 - 146 mmol/[facility], KYPOC Grufdp490 mmol/HAner160 - 146 mmol/[facility], KYPOC Uhensf126 mmol/ZDupw847 - 146 mmol/[facility], KYUrine Cultureon 07-70-3383FxfbgjiLH GROWTHUniversity Hospitals [facility] Center, KYSpecial RequestsNOT REPORTEDUniversity Hospitals [facility], KYSpecimen Description.CATHETERIZED URINEUniversity Hospitals Geneva Medical Center, KYXR CHEST PORTABLEon 27-56-8680PS CHEST PORTABLEEXAMINATION: ONE XRAY VIEW OF THE [...] body of the stomach. Right internal jugular Carroll-Shawn catheter appears unchanged in position in the [...] Signed by: Morro Wheeler MD 07/04/19 Final resultNoCommunity [facility] Hospital, [facility], [facility], KYXR CHEST PORTABLEEXAMINATION: ONE XRAY VIEW OF [...] 3 cm above the janes. A right-sided Carroll-Shawn catheter terminates in the main pulmonary outflow [...] Signed by: Ana Grace MD 07/04/19 Final resultNormalMarietta Memorial Hospital, [facility], [facility], ORAPTAbrazo Arrowhead Campus [id number] Coag (Bld) [Time]26.4 s Echjti74.5-30.5[facility] Beachwood Medical CenterComment on above:Performed By: #### CDP, PFA, CP, GLYHGB #### [employer] [facility] [place] [address] Executive Officer: Shalom Barahona Coag (Bld) [Time]26.4 [facility], [place] Anion Gap (Calc) POCon [phone] gap [Moles/Vol]15 mmol/L7 - 16 mmol/L [facility], KYAnion gap [Moles/Vol]18 mmol/LHigh7 - 16 mmol/[facility], ORAnion gap [Moles/Vol]17 mmol/LHigh7 - 16 mmol/[facility], ORAnion gap [Moles/Vol]19 mmol/LHigh7 - 16 mmol/[facility], KYAnion gap [Moles/Vol]22 mmol/LHigh7 - 16 mmol/[facility], KYAnion gap [Moles/Vol]23 mmol/LHigh7 - 16 mmol/[facility], KYAnion gap [Moles/Vol]12 mmol/L7 - 16 mmol/[facility]- [place], [facility] Hospitalial Blood Gas, POCon 90-62-8653Jrnpz TestNOT APPLICABLESt. [facility]- [place], RMFDG704.0[facility]- [place], [facility]- [place], KYNegative Base Excess, Ztt8PplkBfxqz Health- [place], ORO2 Device/Flow/%Adult VentilatorKettering Health Behavioral Medical Center [facility]- [place], [facility] HAD301.5 mmol/L21 - 28 mmol/LMtrinity health system [facility]- [place], ORPO O2 PYH712 %High94 - 98 %[facility]- [place], ORPO nCL434.5[facility]- [place], [facility] pCO2 TempNOT REPORTEDmm HgKettering Health Behavioral Medical Center [facility]- [place], [facility] pH7.332LowK[facility]tering Health Behavior[facility]- [place], [facility] pH TempNOT REPORTEDKettering Health Behavioral Medical Center [facility]- [place], [facility] KT4762.8HighKettering Health Behavioral Medical Center [facility]- [place], [facility] pO2 TempNOT REPORTEDmm HgKettering Health Behavioral Medical Center Health- [place], ORPositive Base Excess, Art NOT REPORTEDKettering Health Behavioral Medical Center Health- [place], KYPt TempNOT REPORTEDKettering Health Behavioral Medical Center [facility]- [place], [facility] SiteArterial LineSt. [facility]- [place], ORTCO2 (calc), Art24 mmol/L22 - 29 mmol/L [facility]- [place], ORAllen TestNOT APPLICABLESt. [facility]- [place], AJDJP173.0[facility]- [place], [facility]- [place], KYNegative Base Excess, Vkf2Vvhfd Health- [place], ORO2 Device/Flow/%Adult VentilatorSt. [facility] [place], [facility] MEO707.1 mmol/L21 - 28 mmol/LMtrinity health system [facility]- [place], [facility] O2 SAT99 %High94 - 98 %[facility]- [place], [facility] xXQ178.9[facility]- [place], [facility] pCO2 TempNOT REPORTEDmm HgKettering Health Behavioral Medical Center [facility]- [place], [facility] pH7.350Mer [facility]- [place], [facility] pH TempNOT REPORTEDKettering Health Behavioral Medical Center [facility]- [place], [facility] XJ7777.0HighKettering Health Behavioral Medical Center [facility]- [place], [facility] pO2 TempNOT REPORTEDmm Hg [facility]- [place], ORPositive Base Excess, ArtNOT REPORTEDKettering Health Behavioral Medical Center [facility]- [place], KYPt TempNOT REPORTEDKettering Health Behavioral Medical Center [facility]- [place], [facility] SiteArterial LineMercy Health- [place], [place] TCO2 (calc), Art24 mmol/L22 - 29 mmol/LMercy [facility]- [place], ORAllen TestNOT REPORTEDMer[facility]- [place], [id number] REPORTEDMer[facility]- [place], ORModeNOT REPORTED [facility]- [place], KYNegative Base Excess, ArtNOT REPORTEDMer[facility]- [place], ORO2 Device/Flow/%NOT REPORTEDMer[facility]- [place], ORPOC ZOA911.0 mmol/L21 - 28 mmol/L [facility]- [place], [place]POC O2 SUF842 %High94 - 98 %[facility]- [place], [place]POC bOK948.4 [facility]- [place], ORPO pCO2 TempNOT REPORTEDmm HgMercy Health- [place], ORPOC pH 7.406[facility]- [place], [place]POC pH TempNOT REPORTEDMer[facility]- [place], ORPOC HQ6461.9 HighMercy Health- [place], ORPO pO2 TempNOT REPORTEDmm HgMercy Health- [place], [place] Positive Base Excess, Nca3Bufmj Health- [place], KYPt TempNOT REPORTEDMer[facility]- [place], [facility] SiteNOT REPORTEDMer[facility]- [place], ORTCO2 (calc), Art27 mmol/L22 - 29 mmol/LMercy [facility]- [place], JERRYAllen TestNOT REPORTEDMer[facility]- [place], [id number] REPORTEDMer[facility]- [place], KYModeNOT REPORTEDMer[facility]- [place], KYNegative Base Excess, Klv7KenyXppds Health- [place], ORO2 Device/Flow/%NOT REPORTEDMer[facility]- [place], ORPO ZNR977.0 mmol/LLow21 - 28 mmol/LMer[facility]- [place], ORPO O2 QTR000 % High94 - 98 %[facility]- [place], [place]POC oWA027.9[facility]- [place], ORPO pCO2 Temp NOT REPORTEDmm HgMercy Health- [place], ORPOC pH7.297LowMercy Health- [place], ORPO pH TempNOT REPORTEDMer[facility]- [place], ORPO QI9411.2HighMercy Health- [place], ORPO pO2 TempNOT REPORTEDmm HgMercy Health- [place], ORPositive Base Excess, ArtNOT REPORTED [facility]- [place], KYPt TempNOT REPORTEDMer[facility]- [place], [facility] SiteNOT REPORTEDMer[facility]- [place], KYTCO2 (calc), Art20 mmol/LLow22 - 29 mmol/LMercy [facility]- [place], JERRYAllen TestNOT REPORTEDMer[facility]- [place], ANHKC9HUG REPORTEDMer[facility]- [place], KYModeNOT REPORTEDMer[facility]- [place], KYNegative Base Excess, Efe6Ardh [facility]- [place], ORO2 Device/Flow/%NOT REPORTEDMer[facility]- [place], ORPO QYO006.6 mmol/LLow21 - 28 mmol/LMer[facility]- [place], ORPO O2 JWJ191 %High94 - 98 %[facility]- [place], ORPO uGG891.9LowMercy [facility]- [place], [facility] pCO2 TempNOT REPORTEDmm Hg [facility]- [place], ORPOC pH7.409[facility]- [place], ORPO pH TempNOT REPORTEDMer[facility]- [place], [place]POC DI2318.8HighMercy Health- [place], [facility] pO2 TempNOT REPORTEDmm Hg [facility]- [place], ORPositive Base Excess, ArtNOT REPORTEDMer[facility]- [place], KYPt TempNOT REPORTEDMer[facility]- [place], [facility] SiteNOT REPORTEDMer[facility]- [place], [place] TCO2 (calc), Art21 mmol/LLow22 - 29 mmol/LMercy [facility]- [place], JERRYAllen TestNOT REPORTEDMer[facility]- [place], [id number] REPORTEDMer[facility]- [place], KYModeNOT REPORTED [facility]- [place], KYNegative Base Excess, Oqg42GexgTxzkj Health- [place], KYO2 Device/Flow/%NOT REPORTEDMer[facility]- [place], ORPOC IOV645.5 mmol/LLow21 - 28 mmol/LMercy [facility]- [place], ORPO O2 GQW578 %High94 - 98 %[facility]- [place], [place]POC iST048.9[facility]- [place], ORPO pCO2 TempNOT REPORTEDmm HgMercy Health- [place], [place] POC pH7.209LowMercy Health- [place], ORPO pH TempNOT REPORTEDMer[facility]- [place], [place]POC LH2300.9HighMercy [facility]- [place], [facility] pO2 TempNOT REPORTEDmm HgMercy [facility]- [place], ORPositive Base Excess, ArtNOT REPORTEDMer[facility]- [place], KYPt TempNOT REPORTED [facility]- [place], [facility] SiteNOT REPORTEDMer[facility]- [place], KYTCO2 (calc), Art 19 mmol/LLow22 - 29 mmol/LMercy [facility]- [place], KYAllen TestNOT REPORTEDMer[facility]- [place], SILCC430.0[facility]- [place], KYModeSIMV(PRVC)+ PSMercy Health- [place], [place] Negative Base Excess, Mqk0TfuwOgnbm Health- [place], KYO2 Device/Flow/%Adult VentilatorMercy Health- [place], ORPOC FEL134.4 mmol/L21 - 28 mmol/LM[facility]- [place], ORPO O2 ZTB597 %High94 - 98 %[facility]- [place], [place]POC vJR016.7[facility]- [place], ORPO pCO2 TempNOT REPORTEDmm HgMercy [facility]- [place], ORPOC pH7.329LowMercy [facility]- [place], ORPO pH TempNOT REPORTEDMer[facility]- [place], ORPOC IN4698.9HighMercy [facility]- [place], ORPOC pO2 TempNOT REPORTEDmm HgMercy [facility]- [place], KYPositive Base Excess, Art NOT REPORTEDMer[facility]- [place], KYPt TempNOT REPORTEDMer[facility]- [place], [facility] SiteNOT REPORTEDMer[facility]- [place], KYTCO2 (calc), Art23 mmol/L22 - 29 mmol/LM[facility]- [place], JERRYAllen TestNOT REPORTEDMer[facility]- [place], [id number] REPORTEDMer[facility]- [place], KYModeNOT REPORTEDMer[facility]- [place], KYNegative Base Excess, Txl9Qzuh [facility]- [place], KYO2 Device/Flow/%NOT REPORTEDMer[facility]- [place], ORPOC MYH412.1 mmol/L21 - 28 mmol/LMercy [facility]- [place], ORPOC O2 KSU128 %High94 - 98 %[facility]- [place], [place] cYE074.6[facility]- [place], ORPO pCO2 TempNOT REPORTEDmm Hg [facility]- [place], ORPOC pH7.378[facility]- [place], [place]POC pH TempNOT REPORTEDMer[facility]- [place], [place]POC SN8410.2HighMercy Health- [place], ORPOC pO2 TempNOT REPORTEDmm Hg [facility]- [place], KYPositive Base Excess, ArtNOT REPORTEDMer[facility]- [place], KYPt TempNOT REPORTEDMer[facility]- [place], [facility] SiteNOT REPORTEDMer[facility]- [place], [place] TCO2 (calc), Art23 mmol/L22 - 29 mmol/LMercy [facility]- [place], JERRYAllen TestNOT REPORTEDMer[facility]- [place], [id number] REPORTEDMer[facility]- [place], KYModeNOT REPORTED [facility]- [place], KYNegative Base Excess, ArtNOT REPORTEDMer[facility]- [place], KYO2 Device/Flow/%NOT REPORTEDMer[facility]- [place], [place]POC CJX248.0 mmol/L21 - 28 mmol/L [facility] [place], [place]POC O2 DLO714 %High94 - 98 %[facility]- [place], [place] pXD828.5 [facility]- [place], ORPO pCO2 TempNOT REPORTEDmm HgMercy Health- [place], ORPOC pH 7.442[facility]- [place], [place]POC pH TempNOT REPORTEDMer[facility]- [place], [place]POC CQ5246.0 HighMercy Health- [place], ORPO pO2 TempNOT REPORTEDmm HgMercy [facility]- [place], [place] Positive Base Excess, Tkq0Qvuyk Health- [place], KYPt TempNOT REPORTEDMercy [facility]- [place], J[facility]YPacific [facility] SiteNOT REPORTEDMer[facility]- [place], KYTCO2 (calc), Art28 mmol/L22 - 29 mmol/LMer[facility]- [place], JERRYAllen TestNOT REPORTEDMer[facility]- [place], FIXRI9PUX REPORTEDMer[facility]- [place], KYModeNOT REPORTEDMer[facility]- [place], KYNegative Base Excess, ArtNOT REPORTEDMer[facility]- [place], ORO2 Device/Flow/%NOT REPORTEDMer[facility]- [place], ORPOC SGT557.6 mmol/L21 - 28 mmol/LM[facility]- [place], ORPOC O2 KET514 %High94 - 98 %[facility]- [place], ORPO lTP857.5[facility]- [place] ORPO pCO2 Temp NOT REPORTEDmm HgMercy Health- [place], ORPOC pH7.425[facility]- [place], [place]POC pH Temp NOT REPORTEDMer[facility]- [place], [place]POC QN1203.7HighMercy Health- [place], ORPOC pO2 Temp NOT REPORTEDmm HgMercy [facility]- [place], KYPositive Base Excess, Lxx9Wtlfm [facility]- [place], KYPt TempNOT REPORTEDMer[facility]- [place], [facility] SiteNOT REPORTEDMer[facility]- [place], ORTCO2 (calc), Art26 mmol/L22 - 29 mmol/LM[facility]- [place], ORAllen TestNOT REPORTEDMer[facility]- [place], UHSFQ4YIP REPORTEDMer[facility]- [place], KYModeNOT REPORTED [facility]- [place], KYNegative Base Excess, ArtNOT REPORTEDMer[facility]- [place], KYO2 Device/Flow/%NOT REPORTEDMer[facility]- [place], ORPOC CEY075.1 mmol/L21 - 28 mmol/L [facility]- [place], [place]POC O2 RAK374 %High94 - 98 %[facility]- [place], [place] yIC496.5 [facility]- [place], [place]POC pCO2 TempNOT REPORTEDmm HgMercy Health- [place], ORPOC pH 7.434[facility]- [place], [place]POC pH TempNOT REPORTEDMer[facility]- [place], ORPOC KD5733.9 HighMercy Health- [place], ORPO pO2 TempNOT REPORTEDmm HgMercy [facility]- [place], [place] Positive Base Excess, Vai2Ibdem [facility]- [place], KYPt TempNOT REPORTEDMer[facility]- [place], [facility] SiteNOT REPORTEDMer[facility]- [place], KYTCO2 (calc), Art26 mmol/L22 - 29 mmol/LMer[facility]- [place], KYAllen TestNOT REPORTEDMer[facility]- [place], [id number] REPORTEDMer[facility]- [place], KYModeNOT REPORTEDMer[facility]- [place], KYNegative Base Excess, Byk1Mrvzx Health- [place], KYO2 Device/Flow/%NOT REPORTEDMer[facility]- [place], [place] POC BLO109.8 mmol/L21 - 28 mmol/LMer[facility]- [place], ORPO O2 TNV413 %High94 - 98 %[facility]- [place], [place]POC mXI240.0[facility]- [place], ORPO pCO2 TempNOT REPORTEDmm HgMercy Health- [place], ORPOC pH7.382[facility]- [place], ORPO pH TempNOT REPORTED [facility]- [place], [place]POC PB9128.6HighMercy Health- [place], ORPOC pO2 TempNOT REPORTED mm HgMercy Health- [place], KYPositive Base Excess, ArtNOT REPORTEDMer[facility]- [place], KYPt TempNOT REPORTEDMer[facility]- [place], [facility] SiteNOT REPORTEDMer[facility]- [place], KYTCO2 (calc), Art25 mmol/L22 - 29 mmol/LMercy [facility]- [place], KYAllen TestNOT REPORTEDMer[facility]- [place], [id number] REPORTEDMer[facility]- [place], KYModeNOT REPORTED [facility]- [place], KYNegative Base Excess, Ugz4Glnde Health- [place], ORO2 Device/Flow/%NOT REPORTEDMer[facility]- [place], ORPOC ALF027.2 mmol/L21 - 28 mmol/L [facility] [place], [place]POC O2 RAV141 %High94 - 98 %[facility]- [place], [place] gZJ163.1 [facility]- [place], [place]POC pCO2 TempNOT REPORTEDmm HgMercy Health- [place], ORPOC pH 7.340LowMercy [facility]- [place], ORPOC pH TempNOT REPORTEDMer[facility]- [place], [place]POC PO2 342.7HighMercy [facility]- [place], ORPOC pO2 TempNOT REPORTEDmm HgMercy [facility]- [place], [place] Positive Base Excess, ArtNOT REPORTEDMer[facility]- [place], KYPt TempNOT REPORTED [facility]- [place], J[facility]YDesert [facility] Centerle SiteNOT REPORTEDMer[facility]- [place], KYTCO2 (calc), Art 25 mmol/L22 - 29 mmol/LMercy [facility]- [place], KYAllen TestNOT REPORTEDMer[facility]- [place], [id number] REPORTEDMer[facility]- [place], KYModeNOT REPORTEDMer[facility]- [place], [place] Negative Base Excess, Xxh1Wkynx Health- [place], KYO2 Device/Flow/%NOT REPORTEDMer[facility]- [place], ORPOC QBU720.3 mmol/L21 - 28 mmol/LMer[facility]- [place], ORPOC O2 LSE958 %High94 - 98 %[facility]- [place], [place]POC wEP919.9[facility]- [place], ORPO pCO2 Temp NOT REPORTEDmm HgMercy Health- [place], ORPOC pH7.421[facility]- [place], [place]POC pH Temp NOT REPORTEDMer[facility]- [place], KYPOC LD7297.8HighMercy Health- [place], KYPOC pO2 Temp NOT REPORTEDmm HgMercy [facility]- [place], KYPositive Base Excess, ArtNOT REPORTEDMer[facility]- [place], KYPt TempNOT REPORTEDMer[facility]- [place], KYSample SiteNOT REPORTED [facility]- [place], KYTCO2 (calc), Art24 mmol/L22 - 29 mmol/LMer[facility]- [place], [place] BASIC METABOLIC PANELon 22-21-0294Ebrpd gap [Moles/Vol]21 mmol/LHigh9 - 17 mmol/LMer[facility]- [place], KYBun/Cre RatioNOT REPORTEDMercy Health- [place], KYCalcium [Mass/Vol]9.3 mg/dL8.6 - 10.4 mg/dLMercy Health- [place], KYChloride [Moles/Vol]113 mmol/LHigh98 - 107 mmol/LMer[facility]- [place], KYCO2 [Moles/Vol]19 mmol/LLow20 - 31 mmol/LMercy [facility]- [place], KYCreatinine [Mass/Vol]1.35 mg/dLHigh0.5 - 0.9 mg/dL [facility] [place], [place]GFR Cllbtdnm35 mL/minLow>60[facility] [place], [place]GFR CommentMercy [facility]- [place], [place]GFR Non- Graggaop06 mL/minLow>60[facility]- [place], [place]GFR StagingNOT REPORTEDMer[facility]- [place], KYGlucose [Mass/Vol]178 mg/dLHigh 70 - 99 mg/dLMercy Health- [place], KYInterpretation and review of laboratory results AbnormalMercy Health- [place], KYPotassium [Moles/Vol]3.9 mmol/L3.7 - 5.3 mmol/LMercy [facility]- [place], KYSodium [Moles/Vol]153 mmol/EPtcj496 - 144 mmol/LM[facility]- [place], KYUrea nitrogen [Mass/Vol]18 mg/dL8 - 23 mg/dLDayton Children'S Hospitalcy [facility]- [place], KYBL GAS,MIX-RUFINO,EXTon [id number], Mixed, Extended0.8 %0 - 5 %[facility] [place], KYHemoglobin, Mixed, Nrtjtmzs97.6 g/dL12 - 18 g/dLDayton Children'S Hospitalcy [facility]- [place], KYMetHb, Mixed, Extended0.8 %0 - 1.5 %[facility]- [place], KYO2 Content, Mixed, Zfyzxtde88 [facility]- [place], KYO2 Sat, Mixed, Glfcbknf14.6 %60 - 80 %[facility] Oxygen Tojzyf21Hqtei Health- [place], [place]Basic Metabolic Panelon [id number] gap [Moles/Vol]19 mmol/LHigh9 - 17 mmol/LM[facility]- [place], KYBun/Cre RatioNOT REPORTEDMercy Health- [place], [place]Calcium [Mass/Vol]9.8 mg/dL8.6 - 10.4 mg/dLMercy [facility]- [place], KYChloride [Moles/Vol]113 mmol/LHigh98 - 107 mmol/LMer[facility]- [place], KYCO2 [Moles/Vol]21 mmol/L20 - 31 mmol/LM[facility]- [place], [place]Creatinine [Mass/Vol]1.16 mg/dLHigh0.5 - 0.9 mg/dLMer[facility]- [place], [place]GFR 56 mL/minLow>60[facility] [place]GFR CommentMer[facility]- [place], [place]GFR Non- Darjgvrx32 mL/minLow>60[facility], [place]GFR StagingNOT REPORTEDMer[facility]- [place], KYGlucose [Mass/Vol]157 mg/rQZrux90 - 99 mg/dLMercy [facility]- [place], [place] Interpretation and review of laboratory resultsAbnormalMercy Health- [place] Potassium [Moles/Vol]3.6 mmol/LLow3.7 - 5.3 mmol/LM[facility]- [place], KYSodium [Moles/Vol]153 mmol/YQktv803 - 144 mmol/LM[facility]- [place], KYUrea nitrogen [Mass/Vol]16 mg/dL8 - 23 mg/dLMercy [facility]- [place], KYAnion gap [Moles/Vol]17 mmol/L 9 - 17 mmol/LM[facility]- [place], KYBun/Cre RatioNOT REPORTEDMercy Health- [place] Calcium [Mass/Vol]8.9 mg/dL8.6 - 10.4 mg/dLMer[facility]- [place], KYChloride [Moles/Vol]107 mmol/L98 - 107 mmol/LMer[facility]- [place], KYCO2 [Moles/Vol]17 mmol/L Low20 - 31 mmol/[facility], KYCreatinine [Mass/Vol]1.24 mg/dLHigh0.5 - 0.9 mg/dL[facility], KYGFR Sezdfgjq44 mL/minLow>60[facility], KYGFR CommentUniversity Hospitals [facility], KYGFR Non- Fsntmfin19 mL/minLow>60 [facility], KYGFR StagingNOT REPORTEDUniversity [facility]als [facility], KYGlucose [Mass/Vol]178 mg/mUQmxv89 - 99 mg/dLUniversity Hospitals [facility], KYPotassium [Moles/Vol]4.3 mmol/L3.7 - 5.3 mmol/[facility], KYSodium [Moles/Vol]141 mmol/L135 - 144 mmol/[facility], KYUrea nitrogen [Mass/Vol]17 mg/dL8 - 23 mg/dLUniversity [facility]als [facility], KYBasic Metabolic Profon [id number]/CRE RatioNOT REPORTEDNormal 20[facility] Medical CenterComment on above:Performed By: #### CDP, PFA, CP, GLYHGB #### [employer] [address] [place] [address] Executive Officer: ZANA Barahonataging:NOT REPORTEDNormalUniversity Hospitals Beachwood Medical CenterComment on above:Performed By: #### CDP, PFA, CP, GLYHGB #### [employer] [address] [place] [address] Executive Officer: Savage Jacob MD(cont.)[facility] Comment on above:Result Comment: Average GFR for 70 or more years old: 75 mL/min/1.73sq m Chronic Kidney Disease: <60 mL/min/1.73sq m Kidney failure: <15 mL/min/1.73sq m eGFR calculated using average adult body mass. Additional eGFR calculator available at: http://www.[employer].[facility]/multiple_crcl_2012.htmPerformed By: #### CDP, PFA, CP, GLYHGB #### [employer] [address] [place] [address] Executive Officer: Savage Jacob MDAnion gap [Moles/Vol]17 mmol/LNormal9-17[facility] Medical CenterComment on above:Performed By: #### CDP, PFA, CP, GLYHGB #### [facility] [employer] [address] [place] [address] Executive Officer: Savage Jacob MDCalcium [Mass/Vol]8.9 mg/dLNormal8.6-10.4[facility] Medical CenterComment on above:Performed By: #### CDP, PFA, CP, GLYHGB #### [facility] [employer] [address] [place] [address] Executive Officer: Savage Jacob MDChloride [Moles/Vol]107 mmol/EFevebh29-336IxhkuUniversity Hospitals Beachwood Medical CenterComment on above:Performed By: #### CDP, PFA, CP, GLYHGB #### [facility] [employer] [address] [place] [address] Executive Officer: Savage Jacob MDCO2 [Moles/Vol]17 mmol/ABor87-44UskhpUniversity Hospitals Beachwood Medical CenterComment on above:Performed By: #### CDP, PFA, CP, GLYHGB #### [facility] [employer] [address] [place] [address] Executive Officer: Savage Jacob MDCreatinine [Mass/Vol]1.24 mg/dLHigh0.50-0.90 [facility] Medical CenterComment on above:Performed By: #### CDP, PFA, CP, GLYHGB #### [facility] [address] [place] [address] Executive Officer: SALLY Barahona, Amer52 mL/minLow>60[facility] Medical CenterComment on above:Performed By: #### CDP, PFA, CP, GLYHGB #### [facility] [address] [place] [address] Executive Officer: Savage Jacob MDGFR,non Amer43 mL/minLow>60[facility] Medical CenterComment on above:Performed By: #### CDP, PFA, CP, GLYHGB #### [address] [address] Executive Officer: Savage Jacob MDGlucose [Mass/Vol]178 mg/mIYtcy33-86OweigEmanate Health/Foothill Presbyterian HospitalComment on above:Performed By: #### CDP, PFA, CP, GLYHGB #### [place] [address] Executive Officer: HALEY Barahonaotassium [Moles/Vol]4.3 mmol/LNormal3.7-5.3 [facility] Medical CenterComment on above:Performed By: #### CDP, PFA, CP, GLYHGB #### [address] [address] Executive Officer: ZANA Barahonaodium [Moles/Vol]141 mmol/UYoqtxo575-511OcsniUniversity Hospitals Beachwood Medical CenterComment on above:Performed By: #### CDP, PFA, CP, GLYHGB #### [address] [address] Executive Officer: Savage Jacob MDUrea nitrogen [Mass/Vol]17 mg/dLNormal8-23[facility] Medical CenterComment on above:Performed By: #### CDP, PFA, CP, GLYHGB #### [address] [address] Executive Officer: Savage Jacob MDBUN/CRE RatioNOT REPORTEDNormal9-20[facility] Medical CenterComment on above:Performed By: #### CDP, PFA, CP, GLYHGB #### [facility] [employer] [address] [place] [address] Executive Officer: ZANA Barahonataging:NOT REPORTEDNoMercy Health West HospitalComment on above:Performed By: #### CDP, PFA, CP, GLYHGB #### [facility] [address], [place] [id number] Executive Officer: CASEY BarahonaALCIUM, IONIC (POC)on [id number] Ionized Calcium1.25 mmol/L1.15 - 1.33 mmol/LMer[facility]- [place], KYPOC Ionized Calcium1.39 mmol/LHigh1.15 - 1.33 mmol/LM[facility]- [place], [place]YPOC Ionized Calcium1.47 mmol/L High1.15 - 1.33 mmol/LM[facility]- [place], [place]YPOC Ionized Calcium1.19 mmol/L1.15 - 1.33 mmol/LM[facility]- [place], [place]YPOC Ionized Calcium0.94 mmol/LLow1.15 - 1.33 mmol/LM[facility]- [place], [place]YPOC Ionized Calcium1.11 mmol/LLow1.15 - 1.33 mmol/L [facility]- [place], KYPOC Ionized Calcium1.22 mmol/L1.15 - [...] - 1.33 mmol/LM[facility]- [place], KYCALCIUM, IONIZEDon [id number], Ion1.14 mmol/L1.13 - 1.33 mmol/LMtr[facility]- [place], KYCalcium, Ion1.32 mmol/L1.13 - 1.33 mmol/LMhocking valley community hospitaly [facility]- [place], KYCalcium, Ion1.22 mmol/L1.13 - 1.33 mmol/LMhocking valley community hospitaly Health- [place], KYCBCon [id number] distribution width (RBC) [Ratio]15.0 %High 11.8-14.4[facility] Medical CenterComment on above:Performed By: #### CDP, PFA, CP, GLYHGB #### [facility] [employer] [address] [place] [address] Executive Officer: Savage Jacob MDHematocrit (Bld) [Volume fraction]55.5 %High 36.3-47.1MEmanate Health/Foothill Presbyterian HospitalComment on above:Performed By: #### CDP, PFA, CP, GLYHGB #### [facility] [employer] [address] [place] [address] Executive Officer: Savage Jacob MDHemoglobin (Bld) [Mass/Vol]18.8 g/dLHigh 11.9-15.1MEmanate Health/Foothill Presbyterian HospitalComment on above:Performed By: #### CDP, PFA, CP, GLYHGB #### [facility] [employer] [address] [place] [address] Executive Officer: ALISSA BarahonaCH (RBC) [Entitic mass]28.4 mcAnzrzz67.2-33.5 [facility] Medical CenterComment on above:Performed By: #### CDP, PFA, CP, GLYHGB #### [facility] [employer] [address] [place] [address] Executive Officer: JAIME BarahonaC (RBC) [Mass/Vol]33.9 g/yZJpmuzq03.4-34.8 [facility] CenterComment on above:Performed By: #### CDP, PFA, CP, GLYHGB #### [address] [address] Executive Officer: ALISSA BarahonaCV (RBC) [Entitic vol]83.7 vEEtcnsp47.6-102.9 [facility] CenterComment on above:Performed By: #### CDP, PFA, CP, GLYHGB #### [address] [address] Executive Officer: ILANA Barahona Automated0.0 per 100 WBCNormal0.0[facility] Medical CenterComment on above:Performed By: #### CDP, PFA, CP, GLYHGB #### [address] [address] Executive Officer: Taylor Barahonatejimbo (Bld) [#/Vol]See Reflexed IPF Result [id number] Hospitals Beachwood Medical CenterComment on above:Performed By: #### CDP, PFA, CP, GLYHGB #### [facility] [employer] [address] [place] [address] Executive Officer: MELISSA Barahona (Bld) [#/Vol]6.63 10*6/uLHigh3.95-5.11[facility] Medical CenterComment on above:Performed By: #### CDP, PFA, CP, GLYHGB #### [address] [address] Executive Officer: PETR Barahona (Bld) [#/Vol]21.5 10*3/uLHigh3.5-11.3MEmanate Health/Foothill Presbyterian HospitalComment on above:Performed By: #### CDP, PFA, CP, GLYHGB #### [facility] [employer] [address] [place] [address] Executive Officer: Taylor Barahonatemartine mean volume (Bld) [Entitic vol]NOT REPORTEDNormal8.1-13.5[facility] Medical CenterComment on above:Performed By: #### CDP, PFA, CP, GLYHGB #### [facility] [employer] [address] [phone] Executive Officer: Savage Jacob MDErythrocyte distribution width (RBC) [Ratio]15.0 %High11.8 - 14.4 %[facility], ORHematocrit (Bld) [Volume fraction]55.5 % High36.3 - 47.1 %[facility], ORHemoglobin (Bld) [Mass/Vol]18.8 g/dLHigh 11.9 - 15.1 g/dLUniversity Hospitals [facility], ORInterpretation and review of laboratory resultsAbnormalUniversity Hospitals [facility], [facility] (RBC) [Entitic mass]28.4 pg25.2 - 33.5 pg [facility], ORMCHC (RBC) [Mass/Vol]33.9 g/dL28.4 - 34.8 g/dLUniversity Hospitals [facility], [facility]DV (RBC) [Entitic vol]83.7 fL82.6 - 102.9 fLUniversity Hospitals Geneva Medical Center, ORPlatelet mean volume (Bld) [Entitic vol]NOT REPORTED8.1 - 13.5 fLUniversity Hospitals Geneva Medical Center, [place] Platelets (Bld) [#/Vol]See Reflexed IPF ResultUniversity Hospitals Geneva Medical Center, ORRBC (Bld) [#/Vol]6.63 10*6/uLHigh3.95 - 5.11 m/uLUniversity Hospitals [facility] Medical Center, ORWBC (Bld) [#/Vol]21.5 10*3/uLHighUniversity Hospitals [facility] Center, ORWBC (Bld) [#/Vol]0.0 10*3/uL0.0 per 100 WBCUniversity Hospitals Geneva Medical Center, ORCB WITH AUTO DIFFERENTIALon [id number] Eos #0.14[facility]- [place], ORAbsolute Immature Granulocyte0.21[facility]- [place], ORAbsolute Lymph #1.73[facility]- [place], ORAbsolute Menard #1.07[facility]- [place], ORBasophils0 %0 - 2 %[facility], KYBasophils (Bld) [#/Vol]0.06 10*3/uLKettering Health Behavioral [facility]- [place], KYDifferential TypeNOT REPORTEDSt. [facility]- [place], KYEosinophils/100 WBC (Bld) 1 %1 - 4 %[facility]- [place], KYErythrocyte distribution width (RBC) [Ratio]14.5 % High11.8 - 14.4 %[facility]- [place], KYHematocrit (Bld) [Volume fraction]37.0 % 36.3 - 47.1 %[facility]- [place], KYHemoglobin (Bld) [Mass/Vol]12.8 g/dL11.9 - 15.1 g/dLSt. [facility]- [place], KYImmature Granulocytes1 %Rxkc7WjxbsSt. Mary'S [facility]- [place], [place] Interpretation and review of laboratory resultsAbnormalSt. [facility], [place] Crmntjgaepi05 %Low24 - 43 %[facility]- [place], KYMCH (RBC) [Entitic mass]29.2 pg 25.2 - 33.5 pgSt. [facility]'S [facility]- [place], KYMCHC (RBC) [Mass/Vol]34.6 g/dL28.4 - 34.8 g/dL [facility]- [place], KYMCV (RBC) [Entitic vol]84.3 fL82.6 - 102.9 fLKettering Health Behavioral Medical Center Health- [place], KYMonocytes6 %3 - 12 %[facility]- [place], KYPlatelet mean volume (Bld) [Entitic vol]8.9 fL8.1 - 13.5 fLSt. Mary'S [facility]- [place], KYPlatelets (Bld) [#/Vol]75 10*3/uLLowSt. Mary'[facility]- [place], KYPlatelets (Bld) [#/Vol]NOT REPORTEDSt. [facility]- [place], KYRBC (Bld) [#/Vol]4.39 10*6/uL3.95 - 5.11 m/uLKettering Health Behavioral Medical Center Health- [place], KYRBC morphology finding Nom (Bld)ANISOCYTOSIS PRESENTSt. Mary'S [facility]- [place], KYSeg Lavafxvrmud30 %High36 - 65 %[facility]- [place], KYSegs Ijldlmdv99.05HighKettering Health Behavioral [facility]- [place], KYWBC (Bld) [#/Vol]17.3 10*3/uLSalem Hospital Health- [place], KYWBC (Bld) [#/Vol]0.0 10*3/uL0.0 per 100 WBCMercy Health- [place], KYWBC MorphologyNOT REPORTED [facility]- [place], KYCHLORIDE (POC)on [id number] Rpcqvbek676 mmol/LHigh98 - 107 mmol/LMercy Health- [place], KYPOC Azibtzlh290 mmol/LHigh98 - 107 mmol/LM[facility]- [place], KYPOC Kuhdaoaq414 mmol/LHigh98 - 107 mmol/LM[facility]- [place], KYPOC Tokobihj436 mmol/LHigh98 - 107 mmol/LM[facility]- [place], KYPOC Pidgkmie445 mmol/L 98 - 107 mmol/LM[facility]- [place], [place]YPOC Dkyohbog072 mmol/L98 - 107 mmol/LM[facility]- [place], KYPOC Gfarushq883 mmol/LHigh98 - 107 mmol/LM[facility]- [place], [place] Calcium, Ionicon 12-86-0081Ocmihmq [Mass/Vol]1.22 mmol/LNormal1.13-1.33[facility] Medical CenterComment on above:Performed By: #### CDP, PFA, CP, GLYHGB #### [facility] [address] [place] [address] Executive Officer: Janae Barahona W/GFR Point of Careon [id number] CommentKettering Health Behavioral [facility] Center Health- [place], KYGFR Ypvbqcf33 mL/minLow>60[facility]- [place], KYGFR Non- Qviyilho66 mL/minLow>60[facility]- [place], KYPOC Creatinine1.28 mg/dL High0.51 - 1.19 mg/dLKettering Health Behavioral [facility]- [place], KYGFR CommentMer Health- [place], [place]GFR Kqdewlr36 mL/minLow>60[facility]- [place], [place]GFR Non- Ndscjlln96 mL/minLow >60[facility]- [place], KYPOC Creatinine1.17 mg/dL0.51 - 1.19 mg/dLKettering Health Behavioral [facility]- [place], [place]GFR Comment>60>60 mL/minKettering Health Behavioral Medical Center Health- [place], [place]GFR CommentMer Health- [place], [place]GFR Non- Hoizxijz39 mL/minLow>60[facility]- [place], KYPOC Creatinine1.04 mg/dL0.51 - 1.19 mg/dLSt. [facility]- [place], KYGFR Comment>60>60 mL/minSt. [facility]- [place], KYGFR CommentUniversity [facility] [place], KYGFR Non- Keprporl25 mL/minLow>60 [facility]- [place], KYPOC Creatinine0.99 mg/dL0.51 - 1.19 mg/dLUniversity Hospitals [facility] [place], KYGFR CommentUniversity [facility]als [facility] [place], KYGFR Comment>60>60 mL/minSt. [facility]- [place], KYGFR Non->60>60 mL/minSt. [facility] [place], KYPOC Creatinine0.91 mg/dL 0.51 - 1.19 mg/dLSt. [facility]- [place], KYGFR Comment>60>60 mL/minSt. [facility]- [place], KYGFR CommentSt. [facility]- [place], KYGFR Non- Nduaxyco03 mL/minLow>60[facility]- [place], KYPOC Creatinine1.03 mg/dL0.51 - 1.19 mg/dLUniversity [facility]als [facility], [place] FIBRINOGENon [id number]<80Critically glp033 - 420 mg/dLUniversity Hospitals [facility], KYInterpretation and review of laboratory resultsAbnormalUniversity Hospitals Geneva [facility] Center, KYFibrinogenon 63-15-8112Mvherwchgm181 mg/yJFxkssk987-484XwckvUniversity Hospitals Beachwood Medical CenterComment on above:Performed By: #### CDP, PFA, CP, GLYHGB #### [facility] [address] [place] [address] Executive Officer: Savage Jacob MDFibrinogen151 mg/dL140 - 420 mg/dLUniversity Hospitals Geneva [facility] Center, KYHemoglobin and hematocrit, bloodon [id number] Ouprohsoox92 %Low36 - 46 %[facility], KYPOC Gralpvggon84.0 g/dLLow12 - 16 g/dLUniversity Hospitals Geneva Medical Center, [place] POC Wvxievqjiw77 %36 - 46 %[facility], KYPOC Rfiryvfkqd92.5 g/dL12 - 16 g/dLUniversity Hospitals Geneva Medical Center, KYPOC Yqnrusuiyw68 %36 - 46 %[facility], ORPOC Ucfmoliwxm17.6 g/dL12 - 16 g/dLKettering Health Behavioral [facility]- [place], KYPOC Mfewsqvapc13 %36 - 46 % [facility]- [place], KYPOC Dzepnshmln60.2 g/dL12 - 16 g/dLKettering Health Behavioral Medical Center [facility]- [place], [place]YPOC Bcoogmqzkl86 %Low36 - 46 %[facility]- [place], [place]YPOC Izaoomoeae52.3 g/dLLow12 - 16 g/dLKettering Health Behavioral Medical Center [facility]- [place], [place]YPOC Tzniwqwwwv54 %Low36 - 46 %[facility]- [place], KYPOC Hemoglobin7.0 g/dLCritically low12 - 16 g/dLKettering Health Behavioral Medical Center [facility]- [place], [place]YPOC Ufmzjlhlqx30 %Low36 - 46 %[facility]- [place]YPOC Ymjellawjs23.6 g/dLLow12 - 16 g/dLKettering Health Behavioral [facility] Center [facility]- [place], [place]YPOC Fwecgytzfj74 %Low36 - 46 %[facility]- [place], KYPOC Hemoglobin 8.7 g/dLLow12 - 16 g/dLKettering Health Behavioral Medical Center [facility]- [place], [place]YPOC Avvupqyunl99 %Low36 - 46 %[facility]- [place], KYPOC Hemoglobin7.4 g/dLLow12 - 16 g/dLKettering Health Behavioral [facility]- [place], [place]YPOC Lmdqvccmjb75 %Low36 - 46 %[facility]- [place], KYPOC Hemoglobin8.0 g/dLLow12 - 16 g/dLKettering Health Behavioral Medical Center [facility]- [place], [place]YPOC Ghwsdoaoyl57 %Low36 - 46 %[facility]- [place], KYPOC Hemoglobin8.1 g/dLLow12 - 16 g/dLKettering Health Behavioral Medical Center [facility]- [place], [place]YPOC Jdhixrqnau25 %Low36 - 46 %[facility]- [place], KYPOC Hemoglobin8.4 g/dLLow12 - 16 g/dLKettering Health Behavioral [facility] Center [facility]- [place]YPOC Yobxjpdxxw31 %Low36 - 46 %[facility]- [place], KYPOC Hemoglobin9.0 g/dLLow12 - 16 g/dLKettering Health Behavioral Medical Center [facility]- [place], [place]YPOC Uchqzobyhx20 %Low36 - 46 %[facility]- [place] POC Hemoglobin9.2 g/dLLow12 - 16 g/dLKettering Health Behavioral [facility]- [place], [place]YPOC Avxttcczhu36 %Low36 - 46 %[facility]- [place], KYPOC Hemoglobin8.9 g/dLLow12 - 16 g/dLKettering Health Behavioral Medical Center [facility]- [place], KYHepatic Function Panelon [id number] [Mass/Vol]3.2 g/dLLow3.5 - 5.2 g/dLSt. [facility]- [place], KYAlbumin/Globulin [Mass ratio]2.9 {ratio}HighSt. Mary'S [facility]- [place], KYALP [Catalytic activity/Vol]20 U/LLow35 - 104 U/LMMemorial Health System- [place], KYALT [Catalytic activity/Vol]161 U/LHigh5 - 33 U/LMMemorial Health System- [place], KYAST [Catalytic activity/Vol]195 U/LHigh<32[facility]- [place], KYBilirubin Ql (U)0.70 mg/dL0.3 - 1.2 mg/dLUniversity [facility] [place], KYBilirubin, Indirect0.52 mg/dL0 - 1 mg/dL [facility], KYBilirubin.direct [Mass/Vol]0.18 mg/dL<0.31[facility], KYGlobulinNOT REPORTED1.5 - 3.8 g/dLUniversity Hospitals [facility], KYInterpretation and review of laboratory resultsAbnoTriHealth Good Samaritan Hospital, KYProtein [Mass/Vol]4.3 g/dLLow6.4 - 8.3 g/dLUniversity Hospitals [facility], KYImmature Platelet Fractionon 07-03-2019 Interpretation and review of laboratory resultsAbnoTriHealth Good Samaritan Hospital, [place] Platelet, Pmckhuidjdew41KqtSjjch Health- [place], KYPlatelet, Immature Fraction1.6 % 1.1 - 10.3 %[facility], KYLACTIC ACID, WHOLE BLOODon 07-03-2019 Interpretation and review of laboratory resultsAbnormLakeHealth Tri[facility], [place] Lactic Acid, Whole Blood7.8 mmol/LHigh0.7 - 2.1 mmol/LMWVUMedicine Harrison [facility] [place], KYLactic Acid, POCon [id number] Lactic Acid8.50 mmol/LHigh0.56 - 1.39 mmol/LMMemorial Health System- [place], KYPOC Lactic Acid7.80 mmol/LHigh0.56 - 1.39 mmol/LMtrinity health [facility]- [place], KYPOC Lactic Acid9.22 mmol/LHigh0.56 - 1.39 mmol/LMtrinity health system [facility]- [place], KYPOC Lactic Acid9.18 mmol/LHigh0.56 - 1.39 mmol/LMercy [facility]- [place], KYPOC Lactic Acid10.36 mmol/LHigh0.56 - 1.39 mmol/LMer[facility]- [place], KYPOC Lactic Acid12.34 mmol/LHigh 0.56 - 1.39 mmol/LMercy [facility]- [place], KYMAGNESIUMon [id number] [Mass/Vol] 2.5 mg/dL1.6 - 2.6 mg/dLMercy Health- [place], KYMagnesiumon [id number] [Mass/Vol]2.6 mg/dL1.6 - 2.6 mg/dLMercy Health- [place], KYMagnesium [Mass/Vol]3.5 mg/dLHigh1.6-2.6Mhocking valley community hospitaly Doctors Hospital Of West CovinaComment on above:Performed By: #### CDP, PFA, CP, GLYHGB #### [facility] [address] [id number] Executive Officer: Savage Jacob, MDMagnesium [Mass/Vol]3.5 mg/dLHigh1.6 - 2.6 mg/dL [facility]- [place], KYMixed Venous Gas, POCon [id number] TestNOT REPORTED [facility]- [place], OSYSO8UAX REPORTEDMercy Health- [place], KYHCO3, Mixed23.7 mmol/L23 - 29 mmol/LMercy [facility]- [place], KYModeNOT REPORTEDMercy Health- [place], KYNegative Base Excess, Etcue8Lzcnf Health- [place], KYO2 Device/Flow/%NOT REPORTEDMercy Health- [place], KYO2 Sat, Mixed70 %60 - 80 %[facility]- [place], KYPCO2, Mixed39.6LowMercy Health- [place], KYPH MIXED7.384[facility]- [place], KYPO2, Mixed37.4[facility]- [place], KYPOC pCO2 TempNOT REPORTEDmm HgMercy Health- [place], KYPOC pH TempNOT REPORTEDMercy Health- [place], [place]YPOC pO2 TempNOT REPORTEDmm HgMercy Health- [place], KYPositive Base Excess, MixedNOT REPORTEDMercy Health- [place], KYPt TempNOT REPORTEDMercy Health- [place], KYSample SiteNOT REPORTEDSt. [facility]- [place], KYtCO2, Mixed25 mmol/L24 - 30 mmol/LMhocking valley community hospitaly Health- [place], KYOPEN HEART COAGon [id number] Coag (Bld) [Time]85.9 sCritically highSt. [facility]'S [facility]- [place], KYFibrinogen<80Critically zsd836 - 420 mg/dL [facility]- [place], JERRYINR Coag (PPP) [Relative time]3.2 {INR}[facility]- [place], [place] Interpretation and review of laboratory resultsAbnormKing's Daughters Medical Center [place]- [place], [place] Platelets (Bld) [#/Vol]DUPLICATE ORDERk/[facility]- [place], [place]YPT Coag (PPP) [Time]31 sHigSelect Medical Specialty Hospital - [place]- [place], KYOtheron 03-06-9440Zjmpisnholmuhw and review of laboratory resultsAbnormKing's Daughters Medical Center [place]- [place], [place]Interpretation and review of laboratory resultsAbnormUNC Hospitals Hills[facility]- [place], [place]Interpretation and review of laboratory resultsAbnormUNC Hospitals [facility]- [place], [place]Interpretation and review of laboratory resultsAbnormUNC Hospitals [facility]- [place], [place]Interpretation and review of laboratory resultsAbnormUNC Hospitals [facility]- [place], [place]Interpretation and review of laboratory resultsAbnormUNC Hospitals [facility]- [place], [place]Interpretation and review of laboratory resultsAbnormUNC Hospitals [facility]- [place], [place]Interpretation and review of laboratory resultsAbnormUNC Hospitals [facility]- [place], [place]Interpretation and review of laboratory resultsAbnormUNC Hospitals [facility]- [place], [place]Interpretation and review of laboratory resultsAbnormUNC Hospitals [facility]- [place], [place]Interpretation and review of laboratory resultsAbnormUNC Hospitals [facility]- [place], [place]Interpretation and review of laboratory resultsAbnormUNC Hospitals [facility]- [place], [place]Interpretation and review of laboratory resultsAbnormUNC Hospitals Hills[facility]- [place], [place]Interpretation and review of laboratory resultsAbnormUNC Hospitals [facility]- [place], [place]Interpretation and review of laboratory resultsAbnormUNC Hospitals Hills[facility]- [place], [place]Interpretation and review of laboratory resultsAbnormUNC Hospitals Hillsborough [facility]- [place], KYPLT, Immature Fract.on 07-03-2019 Platelet, Fluoresc.43 k/zSMml590-240XhfunUniversity Hospitals Beachwood Medical CenterComment on above:Result Comment: ORDERED BY LABPerformed By: #### CDP, PFA, CP, GLYHGB #### [facility] [address], [place] [id number] Executive Officer: VICENTA Barahona Immature Fract.1.6 %Normal1.1-10.3[facility] Hospital Of West CovinaComment on above:Result Comment: ORDERED BY LABPerformed By: #### CDP, PFA, CP, GLYHGB #### [facility] [address], [place] [id number] Executive Officer: OVI Barahona Glucose Fingerstickon 07-03-2019 Interpretation and review of laboratory resultsAbnoTriHealth Good Samaritan Hospital, KYPOC Nuetaxt781 mg/uBDrie87 - 105 mg/dLUniversity Hospitals Geneva [facility], KYInterpretation and review of laboratory resultsAbnormLakeHealth TriPoint [facility], [place] Egcbzou404 mg/tZAzhn09 - 105 mg/dLUniversity Hospitals Geneva [facility] Center, KYPOCT Glucoseon 50-49-5290RTL Bpfmuzo841 mg/lPCqge09 - 100 mg/dLUniversity Hospitals [facility], [place]YPOC Dyhnwrw433 mg/iBVbmd82 - 100 mg/dLUniversity Hospitals Geneva [facility], [place] Vynuwsj210 mg/qYFbyp38 - 100 mg/dLUniversity Hospitals [facility], [place] Lpjuypu768 mg/kJOhij04 - 100 mg/dLUniversity Hospitals [facility], [place] Zyhtrct028 mg/zLYtfq78 - 100 mg/dLUniversity Hospitals Geneva [facility], [place] Qpmnfcz467 mg/gVIfzr43 - 100 mg/dLUniversity Hospitals [facility], [place] Mcpurts339 mg/bEIbts17 - 100 mg/dLUniversity Hospitals Geneva [facility], [place] Gogntzt357 mg/eAQcgc69 - 100 mg/dLUniversity Hospitals Geneva [facility], [place] Usxlzmg655 mg/nPOnco73 - 100 mg/dLUniversity Hospitals [facility] Center, [place] Vhduaip445 mg/uTUubm99 - 100 mg/dLUniversity Hospitals Geneva [facility] Center, [place] Zevaxhp354 mg/eHThty28 - 100 mg/dLUniversity Hospitals Geneva [facility] Center, [place] Rnjqkde662 mg/nTCjgj97 - 100 mg/dLMercy Health- [place], [place] Efqzdpj207 mg/qHFmmi03 - 100 mg/dLK[facility]- [place], [place] Dsouvtm323 mg/eCCevc32 - 100 mg/dLKettering Health Behavioral [facility]- [place], [place] Hfjcmqr928 mg/iZXsnm38 - 100 mg/dLSt. [facility]- [place], [place] POTASSIUM (POC)on 64-95-5300AUS Potassium3.7 mmol/L3.5 - 4.5 mmol/LMercy Health- [place], [...] mmol/L3.5 - 4.5 mmol/LMercy Health- [place], KYPROTIME-INRon 08-88-0210BZE Coag (PPP) [Relative time]1.7 {INR}[facility]- [place], KYInterpretation and review of laboratory resultsAbnormalSt. [facility]- [place], [place] Coag (PPP) [Time]17 [facility], KYPTon 34-46-6257JHZ Coag (PPP) [Relative time]1.2 {INR}[facility] Comment on above:Result Comment: Therapeutic Range: Moderate Anticoagulant Intensity: INR = 2.0-3.0 High Anticoagulant Intensity: INR = 2.5-3.5Performed By: #### CDP, PFA, CP, GLYHGB #### [facility] [address] [place] [address] [id number] Executive Officer: RIGO Barahona Coag (PPP) [Time]12.6 [facility]9.0-12.0University Hospitals Beachwood Medical CenterComment on above:Performed By: #### CDP, PFA, CP, GLYHGB #### [facility] [address] [place] [address] [phone] Executive Officer: Daniel Barahona Counton 47-35-4713Utabltkbs (Bld) [#/Vol]185 10*3/69 Strickland StreetComment on above: Performed By: #### CDP, PFA, CP, GLYHGB #### [facility] [address] [place] [address] [id number] Executive Officer: Daniel Barahona counton 65-52-0574Hiethzcno (Bld) [#/Vol]185 10*3/[facility], KYProtime-INRon 00-48-3650UCB Coag (PPP) [Relative time]1.2 {INR}[facility], KYInterpretation and review of laboratory resultsAbnormLakeHealth TriPoint Medical Center, KYPT Coag (PPP) [Time]12.6 [facility], KYSODIUM (POC)on 26-33-6248FYD Jbaiag471 mmol/BCovh397 - 146 mmol/[facility], [place]YP[place] Hthhjf966 mmol/TXsqc154 - 146 mmol/[facility], [place] Ftkrgg740 mmol/HGmxj540 - 146 mmol/[facility], [place] Vercyc534 mmol/CNvks853 - 146 mmol/LMercy Health- [place], [place]YPOC Ovxhwt252 mmol/NBlpc198 - 146 mmol/LMercy Health- [place], [place] Cqxrkb201 mmol/L138 - 146 mmol/LMercy Health- [place], [place] Smhgml366 mmol/L138 - 146 mmol/LMercy Health- [place], [place] Mjdrwd626 mmol/L 138 - 146 mmol/LMercy Health- [place], [place] Hqlcxd720 mmol/L138 - 146 mmol/LMercy Health- [place], [place] Otxkjj632 mmol/L138 - 146 mmol/LMercy Health- [place], [place]YP[place] Sodium 140 mmol/L138 - 146 mmol/LMercy Health- [place], [place] Nukllr896 mmol/L138 - 146 mmol/LMercy Health- [place], [place] Vkpdvn010 mmol/L138 - 146 mmol/LMercy Health- [place], KYSurgical Pathologyon 54-23-4321Hxkawndt Pathology(NOTE) [id number] [facility] [employer] CONSULTING PATHOLOGISTS [facility] ANATOMIC PATHOLOGY [address] [place] [phone] SURGICAL PATHOLOGY CONSULTATION Patient Name: ELEANOR MCCLAIN [facility] Rec: [id number] Path Number: [id number] Collected: 07/03/2019 Received: 07/04/2019 Reported: 07/05/2019 13:33 [...] only. tm Microscopic Description 1. Microscopic examination performed.[facility] Comment on above:Performed By: #### DENIZ DAVIS #### [facility] [employer] [address] [place] [address] Executive Officer: Savage Jacob MDType + Screenon 99-20-2085Dmab + ScreenSample Expiration 07/06/2019,2359 Arm Band Number [id number] ABO/Rh(D) A POSITIVE Antibody Screen NEGATIVE Antigen Type,Patient Negative for E Antigen Unit Number [id number] Blood Component Type Leukocyte Reduced Red Cell Unit Division 00 Status of Unit TRANSFUSED Transfusion Status OK TO TRANSFUSE Crossmatch Result COMPATIBLE Unit Number [id number] Blood Component Type Leukocyte Reduced Red Cell Unit Division 00 Status of Unit TRANSFUSED Transfusion Status OK TO TRANSFUSE Crossmatch Result COMPATIBLE Unit Number [id number] Blood Component Type Leukocyte Reduced Red Cell Unit Division 00 Status of Unit TRANSFUSED Transfusion Status OK TO TRANSFUSE Crossmatch Result COMPATIBLE Unit Number [id number] Blood Component Type Leukocyte Reduced Red Cell Unit Division 00 Status of Unit TRANSFUSED Transfusion Status OK TO TRANSFUSE Crossmatch Result COMPATIBLE Unit Number [id number] Blood Component Type Leukocyte Reduced Red Cell Unit Division 00 Status of Unit TRANSFUSED Transfusion Status OK TO TRANSFUSE Crossmatch Result COMPATIBLE Unit Number [id number] Blood Component Type Leukocyte Reduced Red Cell Unit Division 00 Status of Unit TRANSFUSED Transfusion Status OK TO TRANSFUSE Crossmatch Result COMPATIBLE Unit Number [id number] Blood Component Type Leukocyte Reduced Red Cell Unit Division 00 Status of Unit TRANSFUSED Transfusion Status OK TO TRANSFUSE Crossmatch Result COMPATIBLE Unit Number [id number] Blood Component Type Leukocyte Reduced Red Cell Unit Division 00 Status of Unit TRANSFUSED Transfusion Status OK TO TRANSFUSE Crossmatch Result COMPATIBLE Unit Number [id number] Blood Component Type Leukocyte Reduced Red Cell Unit Division 00 Status of Unit TRANSFUSED Transfusion Status OK TO TRANSFUSE Crossmatch Result COMPATIBLE Unit Number [id number] Blood Component Type Leukocyte Reduced Red Cell Unit Division 00 Status of Unit TRANSFUSED Transfusion Status OK TO TRANSFUSE Crossmatch Result COMPATIBLE Unit Number [id number] Blood Component Type Leukocyte Reduced Red Cell Unit Division 00 Status of Unit TRANSFUSED Transfusion Status OK TO TRANSFUSE Crossmatch Result COMPATIBLE Unit Number [id number] Blood Component Type Leukocyte Reduced Red Cell Unit Division 00 Status of Unit REL FROM ALLOC Transfusion Status OK TO TRANSFUSE Crossmatch Result COMPATIBLE Unit Number [id number] Blood Component Type Leukocyte Reduced Red Cell Unit Division 00 Status of Unit REL FROM ALLOC Transfusion Status OK TO TRANSFUSE Crossmatch Result COMPATIBLE Unit Number [id number] Blood Component Type Leukocyte Reduced Red Cell Unit Division 00 Status of Unit REL FROM ALLOC Transfusion Status OK TO TRANSFUSE Crossmatch Result COMPATIBLE Unit Number [id number] Blood Component Type Leukocyte Reduced Red Cell Unit Division 00 Status of Unit REL FROM ALLOC Transfusion Status OK TO TRANSFUSE Crossmatch Result COMPATIBLE Unit Number [id number] Blood Component Type Leukocyte Reduced Red Cell Unit Division 00 Status of Unit REL FROM ALLOC Transfusion Status OK TO TRANSFUSE Crossmatch Result NOT TESTED Unit Number [id number] Blood Component Type Leukocyte Reduced Red Cell Unit Division 00 Status of Unit REL FROM ALLOC Transfusion Status OK TO TRANSFUSE Crossmatch Result NOT TESTED Unit Number [id number] Blood Component Type Leukocyte Reduced Red Cell Unit Division 00 Status of Unit REL FROM ALLOC Transfusion Status OK TO TRANSFUSE Crossmatch Result NOT TESTED Unit Number [id number] Blood Component Type Leukocyte Reduced Red Cell Unit Division 00 Status of Unit REL FROM ALLOC Transfusion Status OK TO TRANSFUSE Crossmatch Result NOT TESTEDNoMercy Health West HospitalComment on above:Performed By: #### UA, LIDIA #### [facility] [address] [place] [address] Executive Officer: WHITNEY Barahona CHEST PORTABLEon 46-36-6966PJ CHEST PORTABLE EXAMINATION: ONE XRAY VIEW OF [...] 13 cm is recommended. Right IJ approach Carroll-Shawn catheter distal tip overlying the expected location [...] by: Enzo Plascencia MD 07/03/19 Final resultNormalMercy Doctors Hospital Of West CovinaXR CHEST PORTABLEEXAMINATION: ONE XRAY VIEW OF THE [...] Signed by: Jesús Clemons MD 07/03/19 Final resultNoCommunity [facility], [facility], [facility], [facility], [facility], [facility], KYCT Chest WO Contraston .5 mm ground-glass [...] smoking or known risk factors. Radiology 2017 http://pubs.rsna.org/doi/full/10.1148/radiol.9676796306Xnhgv [employer] Work Phone: eXAMINATION: CT OF THE CHEST [...] abnormality. No acute soft tissue abnormality is seen.[employer] Work Phone: e, Rust Incoming Radiant Results From [employer] - 06/29/2019 4:37 PM EST EXAMINATION: CT [...] smoking or known risk factors. Radiology 2017 http://pubs.rsna.org/doi/full/10.1148/radiol.9521797474 [employer] Phone: vL DUP CAROTID BILATERALon 21-70-8711RhiucBarnesville [facility] Carotid Procedure Patient Name RHETT Date of Study 06/29/2019 ELEANOR Hay Date of 1950 Gender Female Age 68 year(s) Race Room Number Corporate ID# [id number] Patient MR # [id number] Radiology Special Procedure Tech MITCHELL Colmenares Interpreting Physician Ana Grace MD [...] +--------+-------+ + + - Additional Measurements:ICAPSV/CCAPSV 1.37.ICAEDV/CCAEDV 1.98.[facility] Work Phone: e, Rust Incoming Cardio Results From [facility]/Ge - 06/29/2019 4:29 PM [facility] Patient Name RHETT Date of Study 06/29/2019 ELEANOR Hay Date of 1950 Gender Female Age 68 year(s) Race Room Number Corporate ID # [id number] Patient MR # [id number] Radiology Special Procedure Tech MITCHELL Colmenares Interpreting Physician Ana Grace MD [...] Diastolic Velocities >120cm/sec. Ordered by: Vasiliy Bethea APRN-STEAM FITTER HELPER Conclusions Summary Moderate 50-69% stenosis of the [...] +--------+--------+--------+-------+ + + - Additional Measurements:ICAPSV/CCAPSV 1.37.ICAEDV/CCAEDV 1.98.[employer] Work Phone: vl VEIN MAPPING LOWER BILATERALon 58-28-8720EcakdRivendell Behavioral [facility] Services Vascular Lower Extremity Vein Mapping Procedure Patient Name RHETT Dateof Study 06/27/2019 ELEANOR M Date of 1950 Gender Female Age 68 year(s) Race Room Number op Corporate ID # [id number] Patient MR # [id number] Radiology Special Procedure Tech Sandra Hoff RVT Interpreting Physician Godfrey John [...] ! ! !0 ! ! + ++--------+-----+----+--------+-----+ [employer] Work Phone: edi, Rust Incoming Cardio Results From [facility]/ - 06/27/2019 7:56 PM [facility] Vascular Lower Extremity Vein Mapping Procedure Patient Name RHETT Date of Study 06/27/2019 ELEANOR Hay Date of 1950 Gender Female Age 68 year(s) Race Room Number op Corporate ID # [id number] Patient MR # [id number] Radiology Special Procedure Tech Sandra Hoff RVT Interpreting Physician Godfrey John [...] ! !0 ! ! + ++--------+-----+----+--------+----- + [employer] Phone: cult,Urine,CCon 74-90-1273Qtmn,Urine,CCSpecimen Description .CLEAN CATCH URINE Special Requests NOT REPORTED Culture NO GROWTH Report Status FINAL 06/26/2019[facility] ColumbusComment on above:Performed By: #### CDP, PFA, CP, GLYHGB #### [facility] [address] [place] [address] Executive Officer: JONG Barahona 12 [employer] 59-65-0359Qnrvzr Kwst86SQOYcbzp Health Work Phone: p Yycw19enctujjLiicy Health Work Phone: p-R Mlctjzjs379 [employer] Phone: Q-T Cavbeokt357 [facility] Work Phone: QRS Vhjzengb10 [facility] Work Phone: QTc Calculation (Chandrika)456 [facility] Work Phone: r Mugi7pycmcunHizsb Health Work Phone: T Ammm39roglhslDssja Health Work Phone: Ventricular Ilcu04UPEIamit Health Work Phone: sinus rhythm with occasional Premature ventricular complexes Otherwise normal ECG No previous ECGs availableDayton Children'S HospitalAmadesa Phone: eKip marshall Incoming Ekg Results From [employer] - 06/26/2019 5:35 PM EST Sinus rhythm with occasional Premature ventricular complexes Otherwise normal ECG No previous ECGs [facility] EverettAmadesa Phone: MRSA DNA Probe, Nasalon 51-38-4221RCIT, DNA, Nasal NEGATIVE: MRSA DNA not detected by nucleic acid amplification.NEGATIVE: MRSA DNA not detected by nucleic acid amplificatiDayton Children'S HospitalAmadesa Phone: comment on above: Results should be used as an adjunct to nosocomial control efforts to identify patients needing enhanced precautions. The test is not intended to identify patients with staphylococcal infections. Results should not be used to guide or monitor treatment for MRSA infections. Specimen Description.NASAL SWABDayton Children'S HospitalAmadesa Phone: MRSA, DNA, Nasalon 22-98-1772NWNQ, DNA, NasalNEGATIVE: MRSA DNA not detected by nucleic acid amplification.NormalNMRSAAUniversity Hospitals Beachwood Medical CenterComment on above:Result Comment: Results should be used as an adjunct to nosocomial control efforts to identify patients needing enhanced precautions. The test is not intended to identify patients with staphylococcal infections. Results should not be used to guide or monitor treatment for MRSA infections. Performed By: #### CDP, PFA, CP, GLYHGB #### [facility] [address] [place] [address] Executive Officer: Mariano Barahona culture clean catchon 14-29-5924VsoyddlJH [facility] [employer] Phone: special RequestsNOT REPORTEDDayton Children'S HospitalAmadesa Phone: specimen Description.CLEAN CATCH URINEDayton Children'S HospitalAmadesa Phone: aPTTon 01-56-8669hOGK Coag (Bld) [Time]22.5 sNormal 20.5-30.5University Hospitals Beachwood Medical CenterComment on above:Performed By: #### PT, PTT #### [facility] [address] [place] [address] Executive Officer: Savage Jacob MDaPTJuanita Coag (Bld) [Time]22.5 [facility] [employer] Phone: arterial Blood Gas, POCon 85-00-7029Hiuwu TestPositive [facility] [employer] Work Phone: aPTT Coag (Bld) [Time]NOT REPORTEDDayton Children'S HospitalReliOn Work Phone: FIO221.0Day[facility] Children'S HospitalReliOn Work Phone: Interpretation and review of laboratory results AbnormalDayton Children'S HospitalReliOn Work Phone: ModeNOT REPORTEDDayton Children'S HospitalReliOn Work Phone: Negative Base Excess, ArtNOT REPORTEDDayton Children'S HospitalReliOn Work Phone: O2 Device/Flow/%Room AirKettering Health Behavioral Medical Center [employer] Work Phone: Oxygen saturation in Blood98 %94 - 98 %[facility] [employer] Work Phone: pOC WXW454.1 mmol/L21 - 28 mmol/LMtrinity health system twin [facility] medical [facility] [employer] Work Phone: HOC pXB821.7LowMerR[employer] Work Phone: pOC pCO2 TempNOT REPORTEDmm HgDayton Children'S HospitalReliOn Work Phone: BOC pH7.477HighDayton Children'S HospitalReliOn Work Phone: FOC pH TempNOT REPORTEDDayton Children'S HospitalReliOn Work Phone: UOC BM7148.5[facility] [employer] Work Phone: pOC pO2 TempNOT REPORTEDmm HgDayton Children'S HospitalReliOn Work Phone: positive Base Excess, Jql8[facility] Work Phone: sample SiteLeft Radial ArteryMer [employer] Work Phone: TCO2 (calc), Art25 mmol/L22 - 29 mmol/LMhocking valley community hospitaly Health Work Phone: cBC Auto Differentialon 98-52-1185Bjqfvlita (Bld) [#/Vol]0.06 10*3/uLMerR[employer] Work Phone: Basophils/100 WBC (Bld)1 %0 - 2 %[employer] Phone: differential TypeNOT REPORTEDDayton Children'S HospitalAmadesa Phone: eosinophils (Bld) [#/Vol]0.37 10*3/[employer] Phone: eosinophils/100 WBC (Bld)6 %High1 - 4 %[employer] Phone: erythrocyte distribution width (RBC) [Ratio]13.1 %11.8 - 14.4 %[employer] Phone: Hematocrit (Bld) [Volume fraction]29.9 %Low36.3 - 47.1 %[employer] Phone: Hemoglobin (Bld) [Mass/Vol]9.8 g/dLLow11.9 - 15.1 g/dL [employer] Phone: Immature granulocytes (Bld) [#/Vol]10*3/[employer] Phone: Immature granulocytes (Bld) [#/Vol]0 %0[employer] Phone: Interpretation and review of laboratory results AbnormalDayton Children'S HospitalAmadesa Phone: lymphocytes (Bld) [#/Vol]2.04 10*3/[employer] Phone: lymphocytes/100 WBC (Bld)33 %24 - 43 %[employer] Phone: MCH (RBC) [Entitic mass]29.2 pg25.2 - 33.5 pgDayton Children'S HospitalAmadesa Phone: MCHC (RBC) [Mass/Vol]32.8 g/dL28.4 - 34.8 g/dLDayton Children'S HospitalAmadesa Phone: MCV (RBC) [Entitic vol]89.0 fL82.6 - 102.9 fLTwinedAmadesa Phone: Monocytes (Bld) [#/Vol]0.44 10*3/[place]otaAm[employer] Phone: Monocytes/100 WBC (Bld)7 %3 - 12 %[employer] Phone: [phone] mean volume (Bld) [Entitic vol]8.9 fL8.1 - 13.5 [facility] HospitalAmadesa Phone: Platelets (Bld) [#/Vol]NOT REPORTEDDayton Children'S HospitalAmadesa Phone: Platelets (Bld) [#/Vol]309 10*3/[place]Am[place] Phone: RBC (Bld) [#/Vol]3.36 10*6/uLLow3.95 - 5.11 m/MCube, IncDayton Children'S HospitalAmadesa Phone: [phone] morphology finding Nom (Bld)NOT REPORTEDDayton Children'S HospitalAmadesa Phone: Segmented neutrophils/100 WBC (Bld)53 %36 - 65 %[employer] Phone: [phone] Absolute3.34Day[facility] Children'S HospitalAmadesa Phone: WBC (Bld) [#/Vol]0.0 10*3/uL0.0 per 100 WBCDayton Children'S HospitalAmadesa Phone: WBC (Bld) [#/Vol]6.3 10*3/[place]Am[employer] Phone: [phone] MorphologyNOT REPORTEDDayton Children'S HospitalAmadesa Phone: CBC with Diffon 12-50-0212Mfd. Basophil0.06 k/uLNormal 0.00-0.20[facility] Beachwood Medical CenterComment on above:Performed By: #### CDP, PFA, CP, GLYHGB #### [employer] [address] [place] [place] [address] Executive Officer: MDAbs. BrooklynImm.Granulocyte<0.47Psdrxs5.00-0.30[facility] Beachwood Medical CenterComment on above:Performed By: #### CDP, PFA, CP, GLYHGB #### [place] [address] Executive Officer: Shea Barahona.Neutrophil (Seg)3.34 k/uLNormal1.50-8.10 [facility]wood Medical CenterComment on above:Performed By: #### CDP, PFA, CP, GLYHGB #### [place] [address] Executive Officer: Savage Jacob MDBasophils/100 WBC (Bld)1 %Normal0-2MEmanate Health/Foothill Presbyterian HospitalComment on above:Performed By: #### CDP, PFA, CP, GLYHGB #### [place] [address] Executive Officer: Savage Jacob MDEosinophils (Bld) [#/Vol]0.37 10*3/uLNormal 0.00-0.44[facility] Medical CenterComment on above:Performed By: #### CDP, PFA, CP, GLYHGB #### [place] [address] Executive Officer: TIERA Barahonaosinophils/100 WBC (Bld)6 %High1-4[facility] Beachwood Medical CenterComment on above:Performed By: #### CDP, PFA, CP, GLYHGB #### [place] [address] Executive Officer: Savage Jacob MDErythrocyte distribution width (RBC) [Ratio]13.1 %Rjdiny83.8-14.4[facility] Medical CenterComment on above:Performed By: #### CDP, PFA, CP, GLYHGB #### [address] [place] [address] Executive Officer: Savage Jacob MDHematocrit (Bld) [Volume fraction]29.9 %Low 36.3-47.1MEmanate Health/Foothill Presbyterian HospitalComment on above:Performed By: #### CDP, PFA, CP, GLYHGB #### [address] [address] Executive Officer: Savage Jacob MDHemoglobin (Bld) [Mass/Vol]9.8 g/dLLow11.9-15.1 [facility] Medical CenterComment on above:Performed By: #### CDP, PFA, CP, GLYHGB #### [address] [address] Executive Officer: Savage Jacob MDImmature granulocytes (Bld) [#/Vol]0 %Normal0 [facility] Medical CenterComment on above:Performed By: #### CDP, PFA, CP, GLYHGB #### [place] [address] Executive Officer: Kathie Barahonamphocytes (Bld) [#/Vol]2.04 10*3/uLNormal 1.10-3.70[facility] Medical CenterComment on above:Performed By: #### CDP, PFA, CP, GLYHGB #### [address] [address] Executive Officer: Kathie Barahonamphocytes/100 WBC (Bld)33 %Ittyyu19-36WdfrhUniversity Hospitals Beachwood Medical CenterComment on above:Performed By: #### CDP, PFA, CP, GLYHGB #### [address] [address] Executive Officer: ALISSA BarahonaCH (RBC) [Entitic mass]29.2 jcDhdnuw34.2-33.5 [facility] Medical CenterComment on above:Performed By: #### CDP, PFA, CP, GLYHGB #### [address] [address] Executive Officer: ALISSA BarahonaCHC (RBC) [Mass/Vol]32.8 g/mIVgfjhn01.4-34.8 [facility] Medical CenterComment on above:Performed By: #### CDP, PFA, CP, GLYHGB #### [address] [address] Executive Officer: ALISSA BarahonaCV (RBC) [Entitic vol]89.0 yIFwqmxf68.6-102.9 [facility] Medical CenterComment on above:Performed By: #### CDP, PFA, CP, GLYHGB #### [address] [address] Executive Officer: ALISSA Barahonaonocytes (Bld) [#/Vol]0.44 10*3/uLNormal 0.10-1.20[facility] Medical CenterComment on above:Performed By: #### CDP, PFA, CP, GLYHGB #### [address] [address] Executive Officer: ALISSA Barahonaonocytes/100 WBC (Bld)7 %Normal3-12[facility]wood Medical CenterComment on above:Performed By: #### CDP, PFA, CP, GLYHGB #### [facility] [employer] [address] [place] [address] 61466 Executive Officer: Savage Jacob MDNeutrophil (Seg)53 %Xqofkd31-29LqpoaUniversity Hospitals Beachwood Medical CenterComment on above:Performed By: #### CDP, PFA, CP, GLYHGB #### [facility] [employer] [address] [place] [address] 59889 Executive Officer: Savage Jacob MDNRBC Automated0.0 per 100 WBCNormal0.0University Hospitals Beachwood Medical CenterComment on above:Performed By: #### CDP, PFA, CP, GLYHGB #### [facility] [address] [place] [address] 85876 Executive Officer: Daniel Barahona mean volume (Bld) [Entitic vol]8.9 fL Normal8.1-13.5University Hospitals Beachwood Medical CenterComment on above:Performed By: #### CDP, PFA, CP, GLYHGB #### [facility] [address] [place] [address] 33550 Executive Officer: Rico Barahona (Bld) [#/Vol]309 10*3/xUNuqsep292-819 [facility] Beachwood Medical CenterComment on above:Performed By: #### CDP, PFA, CP, GLYHGB #### [address] [address] Executive Officer: MELISSA Barahona (Bld) [#/Vol]3.36 10*6/uLLow3.95-5.11[facility] Hospitals Beachwood Medical CenterComment on above:Performed By: #### CDP, PFA, CP, GLYHGB #### [facility] [employer] [address] [place] [address] 92846 Executive Officer: PETR Barahona (Bld) [#/Vol]6.3 10*3/uLNormal3.5-11.3MEmanate Health/Foothill Presbyterian HospitalComment on above:Performed By: #### CDP, PFA, CP, GLYHGB #### [facility] [employer] [address] [place] [address] 07347 Executive Officer: Samir BarahonaNOT REPORTEDSelect Medical Specialty Hospital - ColumbusComment on above:Performed By: #### CDP, PFA, CP, GLYHGB #### [facility] [address] [place] [address] 91917 Executive Officer: Savage Madoff, MDPlatelets (Bld) [#/Vol]NOT REPORTEDNormGuernsey Memorial HospitalComment on above:Performed By: #### CDP, PFA, CP, GLYHGB #### [facility] [employer] [address] [place] [address] 6[address]19 Executive Officer: MELISSA Barahona morphology finding Nom (Bld)NOT REPORTED [facility] - ColumbusComment on above:Performed By: #### CDP, PFA, CP, GLYHGB #### [facility] [employer] [address] [place] [address] 94144 Executive Officer: PETR Barahona MorphologyNOT REPORTEDSelect Medical Specialty Hospital - ColumbusComment on above:Performed By: #### CDP, PFA, CP, GLYHGB #### [address] [address] Executive Officer: CASEY Barahonasevier valley hospital Metabolic Profon 06-25-2019(cont.)Normal [facility] Beachwood Medical CenterComment on above:Result Comment: Average GFR for 70 or more years old: 75 mL/min/1.73sq m Chronic Kidney Disease: <60 mL/min/1.73sq m Kidney failure: <15 mL/min/1.73sq m eGFR calculated using average adult body mass. Additional eGFR calculator available at: http://www.[employer].Emergent Health/multiple_crcl_2012.htmPerformed By: #### CDP, PFA, CP, GLYHGB #### [facility] [employer] [address] [place] [address] 37902 Executive Officer: Savage Jacob MDAlbumin [Mass/Vol]4.7 g/dLNormal3.5-5.2MEmanate Health/Foothill Presbyterian HospitalComment on above:Performed By: #### CDP, PFA, CP, GLYHGB #### [facility] [employer] [address] [place] [address] 98411 Executive Officer: Savage Jacob MDAlbumin/Globulin [Mass ratio]1.4 {ratio}Normal 1.0-2.5[facility] Beachwood Medical CenterComment on above:Performed By: #### CDP, PFA, CP, GLYHGB #### [facility] [employer] [address] [place] [address] 51533 Executive Officer: Omar Barahona Phos70 U/RIdynjm41-147PtnthUniversity Hospitals Beachwood Medical CenterComment on above:Performed By: #### CDP, PFA, CP, GLYHGB #### [facility] [employer] [address] [place] [address] 77046 Executive Officer: Savage Jacob MDALT [Catalytic activity/Vol]9 U/LNormal5-33[facility] Beachwood Medical CenterComment on above:Performed By: #### CDP, PFA, CP, GLYHGB #### [address] [address] Executive Officer: Chayito Barahona gap [Moles/Vol]18 mmol/LHigh9-17[facility] Beachwood Medical CenterComment on above:Performed By: #### CDP, PFA, CP, GLYHGB #### [facility] [employer] [address] [place] [address] 36482 Executive Officer: Savage Jacob MDAST [Catalytic activity/Vol]17 U/LNormal<32[facility]wood Medical CenterComment on above:Performed By: #### CDP, PFA, CP, GLYHGB #### [facility] [employer] [address] [place] [address] 63877 Executive Officer: Savage Jacob MDBilirubin Ql (U)0.24 mg/dLLow0.3-1.2MEmanate Health/Foothill Presbyterian HospitalComment on above:Performed By: #### CDP, PFA, CP, GLYHGB #### [facility] [employer] [address] [place] [address] 04440 Executive Officer: Savage Jacob MDCalcium [Mass/Vol]9.8 mg/dLNormal8.6-10.4[facility] Beachwood Medical CenterComment on above:Performed By: #### CDP, PFA, CP, GLYHGB #### [facility] [address] [place] [address]28 Executive Officer: CASEY Barahonahloride [Moles/Vol]103 mmol/VSurngj91-271YlwzaUniversity Hospitals Beachwood Medical CenterComment on above:Performed By: #### CDP, PFA, CP, GLYHGB #### [facility] [address] [place] [address]320 Executive Officer: Savage Jacob MDCO2 [Moles/Vol]21 mmol/WLiyvqc25-56WtkoeUniversity Hospitals Beachwood Medical CenterComment on above:Performed By: #### CDP, PFA, CP, GLYHGB #### [place] [address] Executive Officer: CASEY Barahonareatinine [Mass/Vol]1.23 mg/dLHigh0.50-0.90 [facility] Beach[facility] Medical CenterComment on above:Performed By: #### CDP, PFA, CP, GLYHGB #### [facility] [employer] [address] [place] [address] 24081 Executive Officer: Savage Jacob MDGFR, Amer52 mL/minLow>60[facility] Beachwood Medical CenterComment on above:Performed By: #### CDP, PFA, CP, GLYHGB #### [facility] [employer] [address] [place] [address] 28780 Executive Officer: Savage Jacob MDGFR,non Amer43 mL/minLow>60[facility] Medical CenterComment on above:Performed By: #### CDP, PFA, CP, GLYHGB #### [facility] [address] [place] [address] 75460 Executive Officer: Savage Jacob MDGlucose [Mass/Vol]111 mg/jTMdmi52-98GolbcEmanate Health/Foothill Presbyterian HospitalComment on above:Performed By: #### CDP, PFA, CP, GLYHGB #### [facility] [address] [place] [address] 45353 Executive Officer: Savage Jacob MDPotassium [Moles/Vol]4.7 mmol/LNormal3.7-5.3 [facility] Medical CenterComment on above:Performed By: #### CDP, PFA, CP, GLYHGB #### [place] [address] Executive Officer: Savage Jacob MDProtein [Mass/Vol]8.0 g/dLNormal6.4-8.3MEmanate Health/Foothill Presbyterian HospitalComment on above:Performed By: #### CDP, PFA, CP, GLYHGB #### [place] [address] Executive Officer: Savage Jacob MDSodium [Moles/Vol]142 mmol/HRzzfex798-852KjhecUniversity Hospitals Beachwood Medical CenterComment on above:Performed By: #### CDP, PFA, CP, GLYHGB #### [place] [address] Executive Officer: Savage Jacob MDUrea nitrogen [Mass/Vol]25 mg/dLHigh8-23[facility]wood Medical CenterComment on above:Performed By: #### CDP, PFA, CP, GLYHGB #### [place] [address] Executive Officer: FELICITY Barahona/CRE RatioNOT REPORTEDNormal9-20[facility]wood Medical CenterComment on above:Performed By: #### CDP, PFA, CP, GLYHGB #### [place] [address] Executive Officer: ZANA Barahonataging:NOT REPORTEDNormalUniversity Hospitals Beachwood Medical CenterComment on above:Performed By: #### CDP, PFA, CP, GLYHGB #### [employer] [address] [place] [address] Executive Officer: Savage Jacob [facility] EDMONDompfostoria city hospitalensive Metabolic Panelon 06-25-2019 Albumin [Mass/Vol]4.7 g/dL3.5 - 5.2 g/dLDayton Children'S HospitalReliOn Work Phone: Ulbumin/Globulin [Mass ratio]1.4 {ratio}[facility] CenterAsc[facility] Work Phone: GLP [Catalytic activity/Vol]70 U/L35 - 104 U/LMercy Health Work Phone: NLT [Catalytic activity/Vol]9 U/L5 - 33 U/LMercy Health Work Phone: Enion gap [Moles/Vol]18 mmol/LHigh9 - 17 mmol/LMercy Health Work Phone: TST [Catalytic activity/Vol]17 U/L<32MerR[employer]On Work Phone: Dilirubin Ql (U)0.24 mg/dLLow0.3 - 1.2 mg/dLDayton Children'S HospitalReliOn Work Phone: Gun/Cre RatioNOT REPORTEDMerReliOn Work Phone: Yalcium [Mass/Vol]9.8 mg/dL8.6 - 10.4 mg/dLDayton Children'S HospitalReliOn Work Phone: Dhloride [Moles/Vol]103 mmol/L98 - 107 mmol/LMercy Health Work Phone: VO2 [Moles/Vol]21 mmol/L20 - 31 mmol/LMercy Health Work Phone: Treatinine [Mass/Vol]1.23 mg/dLHigh0.5 - 0.9 mg/dL [facility] CenterAsc[facility] Work Phone: GFR Foduoidm35 mL/minLow>60MerR[employer] Work Phone: GFR Non- Ebkqqoin09 mL/minLow>60MerR[employer]On Work Phone: GFR/1.73 sq M predicted among non-blacks MDRD (S/P/Bld) [Vol rate/Area]NOT REPORTEDDayton Children'S HospitalAmadesa Phone: GFR/1.73 sq M predicted among non-blacks MDRD (S/P/Bld) [Vol rate/Area][employer] Phone: comment on above:Average GFR for 70 or more years old: 75 mL/min/1.73sq m Chronic Kidney Disease: <60 mL/min/1.73sq m Kidney failure: <15 mL/min/1.73sq m eGFR calculated using average adult body mass. Additional eGFR calculator available at: http://www.[employer]_crcl_2012.htm Glucose [Mass/Vol]111 mg/bDJuly20 - 99 mg/dLVideolla Phone: Interpretation and review of laboratory results AbnormalV[employer] Phone: potassium [Moles/Vol]4.7 mmol/L3.7 - 5.3 mmol/LMLodo Software Phone: protein [Mass/Vol]8.0 g/dL6.4 - 8.3 g/dLVideolla Phone: sodium [Moles/Vol]142 mmol/L135 - 144 mmol/LMLodo Software Phone: Urea nitrogen [Mass/Vol]25 mg/dLHigh8 - 23 mg/dLVideolla Phone: HEMOGLOBIN A1Con 14-49-0050Ktiesiy [Mass/Vol]134 mg/dL [employer] Phone: comment on above:The ADA and AACC recommend providing the estimated average glucose result to permit better patient understanding of their HBA1c result. HbA1c (Bld) [Mass fraction]6.3 %High4 - 6 %[employer] Phone: Interpretation and review of laboratory results AbnormalVideolla Phone: Hemoglobin A1Con 60-97-6019FdN8f (Bld) [Mass fraction] 6.3 %High4.0-6.0[facility] Beachwood Medical CenterComment on above:Performed By: #### CDP, PFA, CP, GLYHGB #### [employer] [address] [place] [address] [phone] Executive Officer: Savage Jacob MDHbA1c (Bld) [Mass fraction]134 mg/dLNormGuernsey Memorial HospitalComment on above:Result Comment: The ADA and AACC recommend providing the estimated average glucose result to permit better patient understanding of their HBA1c result.Performed By: #### CDP, PFA, CP, GLYHGB #### [employer] [address] [place] [address] [phone] Executive Officer: ANGEL BarahonaA, DNA, Nasalon 03-12-4421Ggknshla Description.NASAL SWABNormGuernsey Memorial HospitalComment on above: Performed By: #### CDP, PFA, CP, GLYHGB #### [facility] CenterPro[facility] [address] [place] [address] [phone] Executive Officer: Rosa Barahonaroscopic Urinalysison 04-59-0921Gegauakni, UA NOT REPORTEDNoneMelima city hospital [employer] Work Phone: bacteria, UANOT REPORTEDNonLakeHealth [facility] [employer] Work Phone: casts UA0 TO 2 HYALINE Reference range defined for non-centrifuged specimen.[facility] [employer] Phone: crystals UANOT REPORTEDNone /HPFKettering Health Behavioral Medical Center [employer] Work Phone: epithelial Cells UA0 TO 2Merc [employer] Work Phone: Mucus, UANOT REPORTEDNoneMelima city hospital [employer] Work Phone: Other Observations UANOT REPORTEDNOT REQ.[facility] [employer] Phone: rBC (U) [#/Vol]NoneKettering Health [facility] [employer] Work Phone: comment on above:Reference range defined for non- centrifuged specimen.Renal Epithelial, UrineNOT REPORTED0 /HPFMercy [employer] Work Phone: Trichomonas, UANOT REPORTEDNoneMey [employer] Work Phone: WBC, UANoneMelima city hospital [employer] Work Phone: Yeast, UANOT REPORTEDNonLakeHealth [facility] [employer] Work Phone: -[facility] [employer] Phone: Otheron [phone] negative chest.[employer] Phone: eXAMINATION: TWO XRAY VIEWS OF THE CHEST 06/25/2019 12:58 pm COMPARISON: 05/10/2019 HISTORY: Reason for Exam: pre op CAD FINDINGS: The lungs are without acute focal process. No effusion or pneumothorax. The cardiomediastinal silhouette is normal. Stable hypertrophic degenerative change of the thoracic spine.[employer] Phone: edi, Rust Incoming Radiant Results From [employer] - 06/25/2019 2:05 PM EST EXAMINATION: TWO XRAY VIEWS OF THE CHEST 06/25/2019 12:58 pm COMPARISON: 05/10/2019 HISTORY: Reason for Exam: pre op CAD FINDINGS: The lungs are without acute focal process. No effusion or pneumothorax. The cardiomediastinal silhouette is normal. 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 IMPRESSION: Stable negative chest. [employer] Phone: pTon 70-56-2322KFW Coag (PPP) [Relative time]0.9 {INR} [facility] Hospital - ColumbusComment on above:Result Comment: Therapeutic Range: Moderate Anticoagulant Intensity: INR = 2.0-3.0 High Anticoagulant Intensity: INR = 2.5-3.5Performed By: #### PT, PTT #### [employer] [address] [place] [address]08 Executive Officer: RIGO Barahona Coag (PPP) [Time]9.8 sNormal9.0-12.0[facility] Beachwood Medical CenterComment on above:Performed By: #### PT, PTT #### [facility] [employer] [address] [place] [address] 48849 Executive Officer: Daniel Barahona Functionon 72-63-8129Rdjajmrv/YGY894 vkfStok98-954YhkebUniversity Hospitals Beachwood Medical CenterComment on above:Performed By: #### CDP, PFA, CP, GLYHGB #### [facility] [employer] [address] [place] [address] 49915 Executive Officer: Savage Jacob MDCollagen/EPI>296Pjhw16-161FufszUniversity Hospitals Beachwood Medical CenterComment on above:Performed By: #### CDP, PFA, CP, GLYHGB #### [address] [address] Executive Officer: Savage Jacob MDInterpretationAbnormal platelet function.Normal [facility] Beachwood Medical CenterComment on above:Result Comment: Common pattern [...] By: #### CDP, PFA, CP, GLYHGB #### [facility] [employer] [address] [place] [address] 84403 Executive Officer: Daniel Barahona function teston 21-55-9997WSYO/EPI Clos Time>300[facility] [employer] Work Phone: collagen Adenosine-5'-Diphosphate (Adp) Enxg185Shif [facility] Work Phone: Interpretation and review of laboratory results [facility] Work Phone: platelet Function InterpAbnormal platelet function. [employer] Phone: comment on above:Common pattern seen in [...] Plavix (clopidogrel) have not been established. Protime-INRon 55-32-0842DNQ Coag (PPP) [Relative time]0.9 {INR}[employer] Phone: comment on above: Therapeutic Range: Moderate Anticoagulant Intensity: INR = 2.0-3.0 High Anticoagulant Intensity: INR = 2.5-3.5 PT Coag (PPP) [Time]9.8 sMLodo Software Phone: TYPE AND SCREENon 62-83-4653XCZ/RhPositiveDayton Children'S HospitalAmadesa Phone: arm Band [id number] Work Phone: expiration Date07/06/2019,2359Dayton Children'S HospitalAmadesa Phone: Type + Screenon [id number] + ScreenSample Expiration 07/06/2019,2359 Arm Band Number [id number] ABO/Rh(D) A POSITIVE Antibody Screen NEGATIVENormalUniversity Hospitals Beachwood Medical CenterComment on above: Performed By: #### TYS #### [facility] [place] [address] Executive Officer: Savage Jacob MDUrinalysison 56-72-1566Xckocojlm UrineNegative NEGATIVEDayton Children'S HospitalAmadesa Phone: color, UAYELLOWYELLOWDayton Children'S HospitalAmadesa Phone: Glucose, UrNegativeNEGATIVEMercy Health Work Phone: Interpretation and review of laboratory results AbnormalMercy Health Work Phone: Ketones Ql (U)NegativeNEGATIVEMercy Health Work Phone: leukocyte esterase Test strip Ql (U)NegativeNEGATIVE [facility] Work Phone: Nitrite, UrineNegativeNEGATIVEMercy Health Work Phone: pH, UA6.5[facility] Work Phone: protein (U) [Mass/Vol]TRACEAbnormalNEGATIVEMercy Health Work Phone: specific [place], UA1.017[facility] Work Phone: Turbidity UACLEARCLEARMercy Health Work Phone: Urinalysis CommentsNOT REPORTEDMercy Health Work Phone: Urine HgbNegativeNEGATIVEMer Health Work Phone: Urobilinogen, UrineNormalNormalMer Health Work Phone: Urinalysis, Routineon 70-51-2426Lbabsbfcvvk Acid,Ur NegativeNormalNEGMercy Doctors Hospital Of West CovinaComment on above:Performed By: #### UA, UMICAO #### [employer] [address] [place] [address] [phone] Executive Officer: Savage Jacob MDBilirubin, SemiQt,UrNegativeNormalNEGMercy Doctors Hospital Of West CovinaComment on above:Performed By: #### UA, UMICAO #### [facility] [address] [place] [address] [phone] Executive Officer: CASEY Barahonaolor (U)YELLOWNormalYELMerParadise Valley HospitalComment on above:Performed By: #### UA, UMICAO #### [facility] [address] [place] [address] [phone] Executive Officer: Savage Jacob MDGlucose Ql (U)NegativeNormalNEGUniversity Hospitals Beachwood Medical CenterComment on above:Performed By: #### DENIZ DAVIS #### [facility] [address] [place] [address] 38134 Executive Officer: Savage Jacob MDHemoglobin, UrNegativeNormalNEGUniversity Hospitals Beachwood Medical CenterComment on above:Performed By: #### DENIZ DAVIS #### [facility] [address] [place] [address] 42733 Executive Officer: Savage Jacob MDLeukocyte esterase Test strip Ql (U)Negative NormalNEGUniversity Hospitals Beachwood Medical CenterComment on above:Performed By: #### DENIZ DAVIS #### [facility] [address] [place] [address] 78813 Executive Officer: Savage Jacob MDNitrite,UrNegativeNormalNEGUniversity Hospitals Beachwood Medical CenterComment on above:Performed By: #### DENIZ DAVIS #### [facility] [address] [place] [address] 29571 Executive Officer: Haley BarahonaH (U)6.5 [pH]Normal5.0-8.0[facility] Medical CenterComment on above:Performed By: #### DENIZ DAVIS #### [facility] [address] [place] [address] 73023 Executive Officer: HALEY Barahonarotein Ql (U)TRACEAbnormalNEGUniversity Hospitals Beachwood Medical CenterComment on above:Performed By: #### DENIZ DAVIS #### [facility] [address] [place] [address] 03902 Executive Officer: ZANA Barahonapecific gravity (U) [Rel density]1.017Normal 1.005-1.030[facility] Medical CenterComment on above:Performed By: #### UA, UMICAO #### [facility] [address] [place] [address] 8[address]26 Executive Officer: Savage Jacob MDTurbidityCLEARPemiscot Memorial Health SystemsalCOhioHealth Shelby HospitalComment on above:Performed By: #### UA, UMICAO #### [facility] [address] [place] [address] 31378 Executive Officer: Savage Jacob MDUrobilinogen,UrNormalNationwide Children's HospitalComment on above:Performed By: #### UA, UMICAO #### [facility] [address] [place] [address] 86090 Executive Officer: Henrry BarahonaNOT REPORTEDSelect Medical Specialty Hospital - ColumbusComment on above:Performed By: #### UA, UMICAO #### [address] [address] Executive Officer: Savage Jacob MDUrinalysis,Microon 06-25-2019-----NormalUniversity Hospitals Beachwood Medical CenterComment on above:Performed By: #### UA, UMICAO #### [facility] [address] [place] [address] 00924 Executive Officer: CASEY Barahonaasts LM.LPF (Urine sed) [#/Area]0 TO 2 HYALINE Normal0-8[facility] Medical CenterComment on above:Result Comment: Reference range defined for non-centrifuged specimen.Performed By: #### UA, UMICAO #### [facility] [address] [place] [address] 33816 Executive Officer: Savage Jacob MDEpithelial cells LM.HPF (Urine sed) [#/Area]0 TO 8Hupubo5-1WwjigUniversity Hospitals Beachwood Medical CenterComment on above:Performed By: #### UA, UMICAO #### [facility] [address] [place] [address] 47536 Executive Officer: Savage Madoff, MDRBC (U) [#/Vol]NoneNormal0-4MerParadise Valley HospitalComment on above:Result Comment: Reference range defined for non- centrifuged specimen.Performed By: #### SUSAN, UMMATTHEW #### [facility] [address] [place] [address]3201 Executive Officer: Savage Jacob MDWBC (U) [#/Vol]NoneNormal0-5[facility] Medical CenterComment on above:Performed By: #### UA, UMICAO #### [facility] [address] [place] [address] 11642 Executive Officer: Ines Barahona sediment LM Ql (Urine sed)NOT REPORTED NormalMercy Memorial HospitalComment on above:Performed By: #### SUSAN, UMICAO #### [facility] [address] [place] [address] 68468 Executive Officer: Karen Barahona LM.HPF (Urine sed) [#/Area]NOT REPORTED NormalMercy Memorial HospitalComment on above:Performed By: #### UA, UMICAO #### [facility] [address] [place] [address] 05415 Executive Officer: Jessica Barahonastnakul LM Nom (Urine sed)NOT REPORTEDNormal NONEUniversity Hospitals Beachwood Medical CenterComment on above:Performed By: #### UA, UMICAO #### [facility] [address] [place] [address] 88254 Executive Officer: Savage Jacob MDEpithelial, RenalNOT LYUIEIYYTxpjof4DqpjbUniversity Hospitals Beachwood Medical CenterComment on above:Performed By: #### UA, UMICAO #### [facility] [address] [place] [address] 66804 Executive Officer: ALISSA Barahonaucus StrandsNOT REPORTEDNormalBANNER BOSWELL MEDICAL CENTEREMeAvalon Municipal HospitalComment on above:Performed By: #### UA, UMICAO #### [facility] [address] [place] [address] Executive Officer: Savage Jacob MDOther ObservationsNOT REPORTEDNormalNREQUniversity Hospitals Beachwood Medical CenterComment on above:Performed By: #### UA, UMICAO #### [facility] [address] [place] [address] Executive Officer: Savage Jacob MDTrichomonasNOT REPORTEDNormalNONEMeAvalon Municipal HospitalComment on above:Performed By: #### UA, UMICAO #### [facility] [address] [place] [address] Executive Officer: Savage Jacob MDYeast LM Ql (Urine sed)NOT REPORTEDNormalBANNER BOSWELL MEDICAL CENTERE [facility]wood Medical CenterComment on above:Performed By: #### UA, UMICAO #### [facility] [address] [place] [address] 08651 Executive Officer: Savage Jacob MDXR CHEST (2 VW)on 15-12-4385JT CHEST (2 VW) EXAMINATION: TWO XRAY VIEWS OF THE CHEST 06/25/2019 12:58 pm COMPARISON: 05/10/2019 HISTORY: Reason for Exam: pre op CAD FINDINGS: The lungs are without acute focal process. No effusion or pneumothorax. The cardiomediastinal silhouette is normal. 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 IMPRESSION: Stable negative chest. Interpreted by: Kaylen Ying MD Signed by: Kaylen Ying MD 06/25/19 Final resultNormGuernsey Memorial HospitalPO Glucoseon 06-06-2019 Glucose [Mass/Vol]141 mg/xFWtph93 - 99 mg/dLOhioHealthInterpretation and review of laboratory resultsAbnormalOProvidence Hospital Auto DifferentialOrdered By: Anshul Irizarry on 75-04-9944Bvaeqbyw Eos #0.30[facility] [employer] Work Phone: absolute Immature GranulocyteNOT REPORTEDSt. Mary'[facility] Work Phone: absolute Lymph #2.00[facility] HospitalAmadesa Phone: absolute Menard #0.50[facility]S HospitalAmadesa Phone: basophils (Bld) [#/Vol]0.10 10*3/uLDayton Children'S HospitalAmadesa Phone: basophils/100 WBC (Bld)1 %0 - 2 %[employer] Phone: differential TypeYESMercAscade Work Phone: eosinophils/100 WBC (Bld)5 %0 - 5 %[employer] Phone: erythrocyte distribution width (RBC) [Ratio]13.4 %12.1 - 15.2 %[employer] Phone: Hematocrit (Bld) [Volume fraction]33.0 %Low36 - 46 % [employer] Phone: Hemoglobin (Bld) [Mass/Vol]11.1 g/dLLow12 - 16 g/dL [employer] Phone: Immature GranulocytesNOT REPORTED0 %[employer] Phone: Interpretation and review of laboratory results AbnormalDayton Children'S HospitalAmadesa Phone: lymphocytes/100 WBC (Bld)27 %15 - 40 %[employer] Phone: MCH (RBC) [Entitic mass]28.8 pg26 - 34 pgDayton Children'S HospitalAmadesa Phone: MCHC (RBC) [Mass/Vol]33.5 g/dL31 - 37 g/dLDayton Children'S HospitalAmadesa Phone: MCV (RBC) [Entitic vol]85.8 fL80 - 100 fLDayton Children'S HospitalAmadesa Phone: Monocytes/100 WBC (Bld)7 %4 - 8 %[employer] Phone: MPVNOT REPORTED6 - 12 fLDayton Children'S HospitalReliOn Work Phone: NRBC AutomatedNOT REPORTEDper 100 WBCDayton Children'S HospitalReliOn Work Phone: platelet EstimateNOT REPORTEDDayton Children'S HospitalReliOn Work Phone: platelets (Bld) [#/Vol]432 10*3/[place] Work Phone: RBC (Bld) [#/Vol]3.84 10*6/uLLow4 - 5.2 m/[place] Work Phone: rBC morphology finding Nom (Bld)NOT REPORTEDDayton Children'S HospitalReliOn Work Phone: segmented neutrophils/100 WBC (Bld)60 %47 - 75 %[facility] [employer] Work Phone: segs Absolute4.40Dayton Children'S HospitalReliOn Work Phone: WBC (Bld) [#/Vol]7.3 10*3/[place] Work Phone: WBC MorphologyNOT REPORTEDDayton Children'S HospitalReliOn Work Phone: comprehensive Metabolic PanelOrdered By: Grayson Hernandez on 23-40-4835Jbqlfle [Mass/Vol]5 g/dL3.5 - 5.2 g/dLDayton Children'S HospitalAmadesa Phone: albumin/Globulin RatioNOT REPORTEDDayton Children'S HospitalReliOn Work Phone: aLP [Catalytic activity/Vol]99 U/L35 - 104 U/LMercy [employer] Work Phone: aLT [Catalytic activity/Vol]9 U/L5 - 33 U/LMercy [employer] Work Phone: anion gap [Moles/Vol]13 mmol/L9 - 17 mmol/LMercy [employer] Work Phone: aST [Catalytic activity/Vol]14 U/L<32MerR[employer]On Work Phone: bilirubin [Mass/Vol]0.33 mg/dL0.3 - 1.2 mg/dLKettering Health [facility] Center [employer] Phone: bun/Cre Bcctd26Nzrbh [employer] Work Phone: calcium [Mass/Vol]10.5 mg/dLHigh8.6 - 10.4 mg/dLKettering Health Behavioral Medical Center [employer] Phone: chloride [Moles/Vol]103 mmol/L98 - 107 mmol/LMtrinity [facility] [employer] Work Phone: cO2 [Moles/Vol]24 mmol/L20 - 31 mmol/LMtrinity health system [facility] [employer] Work Phone: creatinine [Mass/Vol]1.33 mg/dLHigh0.5 - 0.9 mg/dL [facility] [employer] Phone: GFR Lfejsdbv70 mL/minLow>60[facility] [employer] Phone: GFR CommentKettering Health Behavioral Medical Center [employer] Work Phone: comment on above:Average GFR for 70 or more years old: 75 mL/min/1.73sq m Chronic Kidney Disease: <60 mL/min/1.73sq m Kidney failure: <15 mL/min/1.73sq m eGFR calculated using average adult body mass. Additional eGFR calculator available at: http://www.Nodeable/multiple_crcl_2012.htm GFR Non- Onimudgp15 mL/minLow>60[facility] [employer] Phone: GFR StagingNOT REPORTEDKettering Health Behavioral Medical Center [employer] Work Phone: Glucose [Mass/Vol]128 mg/oZBpve38 - 99 mg/dLKettering Health Behavioral Medical Center [employer] Phone: potassium [Moles/Vol]4.8 mmol/L3.7 - 5.3 mmol/LMtrinity health system [facility] [employer] Work Phone: protein [Mass/Vol]8.6 g/dLHigh6.4 - 8.3 g/dLKettering Health Behavioral Medical Center [employer] Phone: sodium [Moles/Vol]140 mmol/L135 - 144 mmol/LMercy [employer] Phone: Urea nitrogen [Mass/Vol]23 mg/dL8 - 23 mg/dLDayton Children'S HospitalAmadesa Phone: Hemoglobin K0IWzonrhl By: Anshul Irizarry on 05-10-2019 Glucose [Mass/Vol]128 mg/dLDayton Children'S HospitalAmadesa Phone: comment on above:The ADA and AACC recommend providing the estimated average glucose result to permit better patient understanding of their HBA1c result. HbA1c (Bld) [Mass fraction]6.1 %High4.8 - 5.9 %[facility] CenterPref[facility] [employer] Phone: Interpretation and review of laboratory results AbnormalDayton Children'S HospitalAmadesa Phone: lipid PanelOrdered By: Grayson Hernandez on 05-10-2019 Cholesterol [Mass/Vol]252 mg/dLHigh<200[facility] [employer] Phone: comment on above: Cholesterol Guidelines: <200 Desirable 200-240 Borderline >240 Undesirable Cholesterol in HDL [Mass/Vol]113 mg/dL>40Dayton Children'S HospitalAmadesa Phone: comment on above: HDL Guidelines: <40 Undesirable 40-59 Borderline >59 Desirable Cholesterol in LDL [Mass/Vol]128 mg/dL0 - 130 mg/dLDayton Children'S HospitalAmadesa Phone: comment on above: LDL Guidelines: <100 Desirable 100-129 Near to/above Desirable 130-159 Borderline >159 Undesirable Direct (measured) LDL and calculated LDL are not interchangeable tests. Cholesterol.total/Cholesterol in HDL [Mass ratio]2.2 {ratio}<5MerAmadesa Phone: Triglyceride [Mass/Vol]54 mg/dL<150Dayton Children'S HospitalAmadesa Phone: comment on above: Triglyceride Guidelines: <150 Desirable 150-199 Borderline 200-499 High >499 Very high Based on AHA Guidelines for fasting triglyceride, February 2012. VLDLNOT REPORTED1 - 30 mg/dLDayton Children'S HospitalAmadesa Phone: MagnesiumOrdered By: Anshul Irizarry on 05-10-2019 Interpretation and review of laboratory resultsAbnoCeler [employer] Group Phone: Magnesium [Mass/Vol]2.9 mg/dLHigh1.6 - 2.6 mg/dLVideolla Phone: No Panel InformationOrdered By: Grayson Hernandez on 20-55-8460Hkflaexidgkfmp and review of laboratory resultsAbnormCeler Logistics Group Phone: patient Fasting?Ordered By: Grayson Hernandez on 57-31-5863Ukuzbxt Fasting?YESDayton Children'S HospitalAmadesa Phone: TSH without ReflexOrdered By: Grayson Hernandez on 30-24-4672GZZ Qn1.55 m[IU]/LMtrinity health system [facility] [employer] Phone: Vitamin D 25 HydroxyOrdered By: Anshul Irizarry on 01-68-8802Gxq D, 25-Qtqncwq27.5 ng/mL30 - 100 ng/mLVideolla Phone: comment on above: Reference Range: Vitamin D status Range Deficiency <20 ng/mL Mild Deficiency 20-30 ng/mL Sufficiency 30-100 ng/mL Toxicity >100 ng/mL XR CHEST STANDARD (2 VW)Ordered By: Grayson Hernandez on 28-12-0723Ik acute cardiopulmonary abnormality.[employer] Phone: eXAM: XR CHEST (2 VW) HISTORY: R01.1. COMPARISON: None. FINDINGS: Two views are submitted. The lungs and pleural spaces are clear. Pulmonary vascular markings are normal. The cardiomediastinal silhouette is within normal limits. No bony lesions are shown.[employer] Phone: edi, Rust Incoming Radiant Results From [employer] - 05/10/2019 10:43 AM EST EXAM: XR CHEST (2 VW) HISTORY: R01.1. COMPARISON: None. FINDINGS: Two views are submitted. The lungs and pleural spaces are clear. Pulmonary vascular markings are normal. The cardiomediastinal silhouette is within normal limits. No bony lesions are shown. IMPRESSION: No acute cardiopulmonary abnormality. [facility] CenterAsc[facility] Work Phone: Vital Signs Date TimeVital SignValuePerforming DvoxjjwteRcwwvgft17-77-3330 12:22-0400Body yyjdbj338.48 Trinity Hernandez MD Work Phone: [phone])[address] [place], [place] 9596310-20-2025 12:22-0400 Body mass index (BMI) [Ratio]27.1 kg/d0HrkpftGrayson Hernandez MD Work Phone: [phone])[address] [place], [place] 9596310-20-2025 12:22-0400 Body rtvwvekhnjr79.9 [degF]Grayson Hernandez MD Work Phone: 1(017)[address] [place], [place] 9596310-20-2025 12:22-0400 Body svoehg34.13 kgGrayson Hernandez MD Work Phone: 1(144)[address] [place], [place] 9596310-20-2025 12:22-0400 Diastolic blood jeutmmgk17 mm[Hg]Grayson Hernandez MD Work Phone: 1(171)[address] [place], [place] 9596310-20-2025 12:22-0400 Heart rate74 /Hudson Hernandez MD Work Phone: 1(504)[address] [place], [place] 9596310-20-2025 12:22-0400 Respiratory rate18 /Hudson Hernandez MD Work Phone: 1(124)[address] [place], [place] 9596310-20-2025 12:22-0400 SaO2% (BldA) [Mass fraction]95 %Grayson Hernandez MD Work Phone: 1([phone])[address] [place], [place] 9596310-20-2025 12:22-0400 Systolic blood iwdptwob498 mm[Hg]Grayson Hernandez MD Work Phone: [phone])[address] [place], [place] 9596310-14-2025 14:33-0400 Body dhufzy485.8 Trinity Hernandez MD Work Phone: [phone] [place], [place] [address]Osmpormqai37-53-6718 14:33-0400Body mass index (BMI) [Ratio]25.56 kg/t8BaetjwGrayson Hernandez MD Work Phone: [facility] CenterIspbggqhsi14-39-0804 14:33-0400Body efkozh43.41 kgGrayson Hernandez MD Work Phone: [facility] CenterXhbsqmpidt06-32-0619 14:33-0400Diastolic blood ojwqvqwt93 mm[Hg]Grayson Hernandez MD Work Phone: [phone] CenterHjdoldmywh89-18-0356 14:33-0400Heart rate70 /min Grayson Hernandez MD Work Phone: [phone] CenterVivvgaglfd09-87-9725 14:33-8127TiK7% (BldA) [Mass fraction]99 %Grayson Hernandez MD Work Phone: [facility] CenterPajqbxxcpb99-54-7057 14:33-0400Systolic blood belwdrss827 mm[Hg]Grayson Hernandez MD Work Phone: [facility] CenterVpvdlrhjpv95-86-9075 11:48-0400Body hymdqa583.5 cmAnshul Irizarry MD Work Phone: [facility]06-17-2025 11:48-0400Body mass index (BMI) [Ratio]25.24 kg/m2Anshul Irizarry MD Work Phone: [facility]06-17-2025 11:48-0400Body .6 kgAnshul Irizarry MD Work Phone: [facility]05-27-2025 14:11-0400Body yqfqdv330.48 cmFisher[facility]05-27-2025 14:11-0400Body mass index (BMI) [Ratio]24.2 kg/t2TriklysnuFisher-Titus Medical Center05-27-2025 14:11-0400Body vcgzgloooxy76.7 [degF][facility]05-27-2025 14:11-0400Body oqkrjr09.04 kgFisher-[facility]itus [facility] Center05-27-2025 14:11-0400Diastolic blood euushxgw19 mm[Hg][facility] 10-16-2024 14:11Heart rate55 /[facility] 10-16-2024 14:Respiratory rate18 /[facility] 10-16-2024 14:118085JeU3% (BldA) [Mass fraction]99 %[facility]05-27-2025 14:11Systolic blood sfiaatgo726 mm[Hg][facility]04-29-2025 16:33-0400Body mwanud645.8 Trinity Hernandez MD Work Phone: [phone] CenterBzgctncuex79-75-1378 16:33-0400Body mass index (BMI) [Ratio]23.22 kg/t5ZgyalzGrayson Hernandez MD Work Phone: 1(174)[facility] CenterZldggmhzcz80-36-7890 16:33-0400Body bscytm12.51 kgGrayson Hernandez MD Work Phone: 1(474)[facility] CenterKcrkqsylxv94-29-6968 14:43-0400Body .8 Trinity Hernandez MD Work Phone: [phone])[address] [place], [place] [address]Bffculbvlf74-04-4997 14:43-0400Body mass index (BMI) [Ratio]25.38 kg/l1PkdognGrayson Hernandez MD Work Phone: [phone])[address] [place], [place] [address]Urncthmhfj75-12-3301 14:43-0400Body besiis13.96 kgGrayson Hernandez MD Work Phone: [phone])[address] [place], [place] [address]Tssjizkniw82-13-5358 15:02-0400Body .8 Trinity Hernandez MD Work Phone: 1(810)[facility] CenterMvvghockfr83-49-2573 15:02-0400Body mass index (BMI) [Ratio]25.38 kg/m9TnjtjnGrayson Hernandez MD Work Phone: [phone])[address] [place], [place] [address]Ksonrkwdkz06-60-3080 15:02-0400Body nfazxk78.96 kgGrayson Hernandez MD Work Phone: [phone] [place], [place] [address]Fnpzmatubw75-07-7467 15:02-0400Diastolic blood detmakjb23 mm[Hg]Grayson Hernandez MD Work Phone: [facility] CenterDnssrujmuj12-11-8062 15:02-0400Heart rate71 /min Grayson Hernandez MD Work Phone: 1(613)[address] [place], [place] 8354703-31-2025 15:02-3388WaJ0% (BldA) [Mass fraction]99 %Grayson Hernandez MD Work Phone: 1(937)[address] [place], [place] 8354703-31-2025 15:02-0400Systolic blood wznkiywi024 mm[Hg]Grayson Hernandez MD Work Phone: 1(057)[address] [place], [place] 8354702-14-2025 12:29-0500Diastolic blood aoanpodx45 mm[Hg]Dm Agarwal [facility] CenterJxmdfrwbcg38-07-2498 12:29-0500Systolic blood ddygzdvj46 mm[Hg]Dm Agarwal [facility] CenterSkjbaduewp40-56-3069 15:29-0500 Body spetir312.8 cmEkyleigh Hernandez MD Work Phone: [phone])[address] [place], [place] 8354712-09-2024 15:29-0500Body mass index (BMI) [Ratio]25.02 kg/i2JmhezyGrayson Hernandez MD Work Phone: 1(911)[address] [place], [place] 8354712-09-2024 15:29-0500Body bfjrvi27.05 kgGrayson Hernandez MD Work Phone: [phone])[address] [place], [place] 8354710-17-2024 12:24-0400Body rmdlam774.48 Trinity Hernandez MD Work Phone: [phone]10-17-2024 12:24-0400 Body mass index (BMI) [Ratio]23.8 kg/p0QcnfwbGrayson Hernandez MD Work Phone: 1(535)[address] [place], [place] 9596310-17-2024 12:24-0400 Body begljnwvdip72 [degF]Grayson Hernandez MD Work Phone: 1(689)[address] [place], [place] 9596310-17-2024 12:24-0400 Body wkuqnv28.13 kgGrayson Hernandez MD Work Phone: [phone])[address] [place], [place] 9596310-17-2024 12:24-0400 Diastolic blood urqfuosr53 mm[Hg]Grayson Hernandez MD Work Phone: 1(752)422-[address] [place], [place] 5512810-17-2024 12:24-0400 Heart rate56 /Hudson Hernandez MD Work Phone: 1(196)[address] [place], [place] 9596310-17-2024 12:24-0400 Respiratory rate6 /Hudson Hernandez MD Work Phone: 1(487)[address] [place], [place] 9596310-17-2024 12:24-0400 SaO2% (BldA) [Mass fraction]100 %Grayson Hernandez MD Work Phone: [phone])[address] [place], [place] 9596310-17-2024 12:24-0400 Systolic blood gnjtzzor032 mm[Hg]Grayson Hernandez MD Work Phone: 1(169)[address] [place], [place] 9596310-01-2024 15:40-0400 Body sxhapg395.8 cmEkyleigh Hernandez MD Work Phone: [phone]10-01-2024 15:40-0400Body mass index (BMI) [Ratio]25.02 kg/s4VejbrsGrayson Hernandez MD Work Phone: [phone] CenterSuzksdjrym18-61-0927 15:40-0400Body kyjwzz70.05 kgGrayson Hernandez MD Work Phone: [facility] CenterXojkelwmdq02-55-0414 11:40-0400Diastolic blood mdwmnlay32 mm[Hg]Anshul Irizarry MD Work Phone: bon [facility]05-07-2024 11:40-0400Heart rate82 /minAnshul Irizarry MD Work Phone: bon [facility]05-07-2024 11:40-0400Systolic blood gdcycmnk515 mm[Hg]Ansuhl Irizarry MD Work Phone: bon [facility]04-11-2024 14:45-0400Diastolic blood mm[Hg]Matty Lei MD Work Phone: bon [employer]04-11-2024 14:45-0400Heart rate57 /Po Lei MD Work Phone: [employer]04-11-2024 14:45-0400 Respiratory rate16 /Po Lei MD Work Phone: [facility] [employer]04-11-2024 14:45-8978UbK1% (BldA) [Mass fraction]95 %Matty Lei MD Work Phone: [employer]04-11-2024 14:45-0400Systolic blood zfsksybr100 mm[Hg]Matty Lei MD Work Phone: [employer]04-11-2024 14:10-0400Body lgvnklnekvl42.8 [degF]Matty Lei MD Work Phone: [employer]02-25-2023 10:10-0500Body drawle868.02 cmSlidia Woods Other [employer] Other 02-25-2023 10:10-0500Body mass index (BMI) [Ratio] 29.05 kg/p5Enwqyvrjbdana Woods Other [employer] Other 02-25-2023 10:10-0500Body pkcpixqyiqb72.2 [degF] Flores Woods Other [employer] Other 02-25-2023 10:10-0500Body .39 kgStdana Woods Other [employer] Other 02-25-2023 10:10-0500Respiratory rate18 /Rick Woods Other [employer] Other 02-25-2023 10:10-9648OqM0% (BldA) [Mass fraction]92 % Flores Woods Other [place] [employer] Other 564211-44-9271 11:11-0500Body Zrvsgpwudyc98.1 [degF][facility], FM55-26-8921 11:11-0500BP Ucmpvlola44 mm[Hg]Caro [employer] Genomicsmerit health woman's hospitaliHealthUniversity Hospitals [facility], SJ19-14-0535 11:11-0500BP Wxtkscpc775 mm[Hg]Caro [employer] Genomicsmerit health woman's hospitaliHealthUniversity Hospitals [facility], KO95-90-3558 11:11-0500Pulse (Heart Rate)50 /min [facility]iHealthUniversity Hospitals [facility], UX31-79-7672 11:11-0500Respiratory Rate20 /min [facility]burgiHealthUniversity Hospitals [facility], BQ62-73-3931 04:00-0500Pulse Gaoblmsh49 % [facility] HospitalMirificeUniversity Hospitals [facility], XR53-48-7746 06:00-0500BMI (Body Mass Index) 32.14 kg/l1Qeihwm [facility]streamKe[facility]an Private [facility], FU73-61-2155 06:00-0500Body weight 79.7 kgDawvumedicine harrison [facility] SelStorUniversity Hospitals Geneva Medical Center, NU06-39-7305 07:45-0102Czuokl709.5 cm [facility]burgiHealthUniversity Hospitals [facility], PH51-65-1134 12:17-0500Pulse Wjqykgye37 %[employer] Work Phone: 1(434) 939-878002-03-2020 12:17-0500Respiratory Rate20 /minStvz 1 [employer] Phone: 1(247) 699-191102-03-2020 11:29-0500BMI (Body Mass Index)26.89 kg/m2 [employer] Work Phone: 1(903) 205-453902-03-2020 11:29-0500Body Xdtbpgoojvg57.2 [degF][employer] 1 [employer] Phone: 1(508) 710-529402-03-2020 11:29-0500Body zufyxn17.68 kgStvz [employer] Work Phone: 1(318) 289-330402-03-2020 11:29-0500BP Asfbtnhzl58 mm[Hg][facility] [employer] Work Phone: 1(375) 772-761802-03-2020 11:29-0500BP Idsmgaxv083 mm[Hg]Stvz [facility] [employer] Work Phone: 1(788) 770-604802-03-2020 11:29-0534Smdeoy559.5 cmStvz [facility] [employer] Work Phone: 1(409) 804-333102-03-2020 11:29-0500Pulse (Heart Rate)76 /minStvz 1 [facility] CenterPreferred [facility] [employer] Phone: 1(255) 292-502601-15-2020 15:03-0500BP Ghmiprrap50 mm[Hg][facility] Council BluffsIubthogDatuLdtohl52-74-3017 15:03-0500BP Ntkuzyri489 mm[Hg][facility]01-15-2020 15:03-0500Pulse (Heart Rate)70 /minLehigh Valley Hospital - Hazelton01-15-2020 15:03-0500Pulse Vdbmefdp92 %[facility] 06-06-2019 08:40-0500BMI (Body Mass Index)25.97 kg/q3HxjkghwCHI Health [facility] 06-06-2019 08:40-0500Body brjigr79.41 kgCHI Health Mercy Council BluffsFkqqglsChooDzlqdx23-84-2633 08:40-2260Iguheo807.5 cmCHI Health Mercy Council BluffsQefuaptAfyaUtkeza71-04-3082 08:05-0500Body Xbbprarxsmf66.6 [degF][facility] Council BluffsUkguaplAoluActqpy66-83-8733 08:05-0500Respiratory Rate14 /minCHI Health [facility]cy [facility] Encounters Encounter DateEncounter TypeCare ProviderFacilityStart: 03-25-2025 End: 44-10-1225Soxqnbeyy Result EncounterGeneric External Data ProviderNOMS External Department UnsolicitedStart: 03-25-2025 End: 58-15-3939Wvttydiba Result EncounterGeneric External Data ProviderNOMS External Department UnsolicitedStart: 03-11-2025 End: 08-33-0390Pavalbqo ReferredPagreene [facility] [facility] [employer] Work Phone: Start: 03-11-2025 End: 79-36-8345tbmnbhmmcrRbocas J Hemeyer MD Work Phone: -fpg [facility] ClydeStart: 03-11-2025 End: 41-50-4147Priufnq encounter procedureJane [facility] Cherelle RodarteCarondelet [facility] Work Phone: Start: 03-05-2025 End: 94-82-7400Qwtvlr outpatient visit 25 minutesEdshivam Hernandez MD Work [...] without hematuria; Chronic pruritus; PolypharmacyStart: 03-05-2025 End: 37-55-3961qvanskbhhoTRFXGC J HEMEYERNot AvailableStart: 03-05-2025 End: 17-60-1113Tzsogk flowsKamaljit Hernandez MD Work Phone: NOMS Alexis 100 Family MedicineStart: 03-05-2025 End: 13-17-1895Nfdlwp flowsKamaljit Hernandez MD Work Phone: N[facility] Alex[facility] 100 Family MedicineStart: 02-09-2025 End: 50-36-7172Cvxdxlkes Result Rashaad Hernandez MD Work Phone: NOZH External Department UnsolicitedStart: 02-09-2025 End: 07-11-0417Xormnoyoh Result Rashaad Hernandez MD Work Phone: noms External Department UnsolicitedStart: 01-07-2025 End: 57-30-0740tavgcxsvzgWyqyzrRobbie Velazquez RN Work Phone: noBAYHEALTH H[facility]ITAL[facility] HEALTHStart: 11-15-2024 End: 46-38-6328Cuqaipxky Result EncounterGeneric External Data ProviderNOMS External Department UnsolicitedStart: 11-15-2024 End: 05-78-3020Kmndimhgp Result EncounterGeneric External Data ProviderNOMS External Department UnsolicitedStart: 11-15-2024 End: 09-51-5977nobnugzpsoGIQCAQ Carlos Eduardo Michele [facility] HospitalStart: 11-15-2024 End: 83-94-2764Bzbnleraae hospital visit by Bel Hernandez MD Work Phone: m[facility] LaboratoryComment on above:HypermagnesemiaStart: 11-06-2024 End: 01-67-6218Qswflyava Result EncounterGeneric External Data ProviderNOMS External Department UnsolicitedStart: 11-06-2024 End: 62-62-7568Kxsvrklew Result EncounterGeneric External Data ProviderNOMS External Department UnsolicitedStart: 11-06-2024 End: 18-90-9032jotwwkaelyHVQY Carlos Eduardo Buitrago [facility] HospitalStart: 11-06-2024 End: 83-24-3932Xfhflqkezb hospital visit by physicianAnshul Irizarry MD Work Phone: [facility] Non-Invasive CardiologyComment on above:Mitral valve stenosis, unspecified etiologyStart: 11-05-2024 End: 05-91-0763Nzklfj flowsheetEmwilma Gasca MD Work Phone: noIN SWS DERMStart: 11-05-2024 End: 04-20-8611Sshoat flowsheetEmwilma Gasca MD Work Phone: noms SWS DERMStart: 11-05-2024 End: 53-94-3094Xxssih outpatient visit 15 minutesEmwilma Gasca MD Work Phone: noms [facility] DERMComment on above:Seborrheic keratosis (Primary Dx); History of basal cell carcinoma; Lentigines; Other seborrheic dermatitisStart: 11-05-2024 End: 35-78-7589awrhmnnccrTIXTJ A PETITTINot AvailableStart: 10-16-2024 End: 07-74-2249eaflwsxrnlNlusiuwccSouthview Medical Center Work Phone: Start: 10-16-2024 End: 67-31-6547Zlmtoav encounter procedureFormerly [facility] Work Phone: Start: 69-57-4844Iwq-patient / Non-visitFormerly [facility] [employer] Work Phone: Start: 10-08-2024 End: 94-75-8681Vdgmttrrw Result EncounterGeneric External Data ProviderNOMS External Department UnsolicitedStart: 10-08-2024 End: 27-58-6791Bncfgrloq Result EncounterGeneric External Data ProviderNOMS External Department UnsolicitedStart: 10-05-2024 End: 06-97-1143HzuocvAvuvfo Wilkinson RN Work Phone: NOMS POPULATION HEALTHComment on above:Anxiety associated with depression (Primary Dx); Primary hypertension (CMS/HCC); Chronic diastolic congestive heart failure, NYHA class 1 (CMS/HCC); Edema, unspecified type; Acquired hypothyroidism (CMS/HCC)Start: 10-01-2024 End: 55-82-1211Nqexvbhii encounterRoshan Mayfield PT Work Phone: NOMS CI PTComment on above:re: PT Recommendation (Call Back requested); FU (Home health contacted.)Home HealthStart: 09-26-2024 End: 93-27-8237kdzrpbaagfRuvzla T Blackston PT Work Phone: NOMS CI PTComment on above:Generalized weakness (Primary Dx); Frequent fallsStart: 09-26-2024 End: 85-96-8989Jtulxhstalin Mayfield PT Work Phone: NOM[facility] CI PTStart: 09-26-2024 End: 18-36-1551Wxclhfstalin Mayfield PT Work Phone: N[facility] CI PTStart: 09-18-2024 End: 50-32-5391Ygxqhe outpatient visit 15 minutesEdshivam Hernandez MD Work Phone: noMS CI FM 100Comment on above:Generalized weakness; Frequent falls; History of falling; Polypharmacy; Type 2 diabetes mellitus with hyperglycemia, without long-term current use of insulin ([facility]); BMI 23.0-23.9, adultStart: 09-18-2024 End: 59-73-8090jaismlvzspTAOBCR J HEMEYERNot AvailableStart: 09-05-2024 End: 47-70-2582pqisseieimYMKSGG J HEMEYERNot AvailableStart: 09-05-2024 End: 12-53-5843Fhtqdk outpatient visit 25 minutesGrayson Hernandez MD Work [...] acute conjunctivitis type, unspecified lateralityStart: 09-05-2024 End: 85-12-2675Jkyqmv flowsKamaljit Hernandez MD Work Phone: noms CI FM 100Start: 09-05-2024 End: 21-03-7360Rkljpl flowsKamaljit Hernandez MD Work Phone: NOM[facility] CI FM 100Start: 09-03-2024 End: 41-79-9589Iuubiqoov encounterShannen Velazquez RN Work Phone: noms POPULATION HEALTHComment on above:Med Refill Start: 08-20-2024 End: 01-57-5021Rzvjpy outpatient visit 25 minutesGrayson Hernandez MD Work Phone: [facility] CI FM 100Comment on above:Primary hypertension ([facility]) (Primary Dx); Chronic diastolic congestive heart failure, NYHA class 1 ([facility]); Mixed hyperlipidemia ([facility]) ; Hypokalemia; Hypomagnesemia; Type 2 diabetes mellitus with stage 4 chronic kidney disease, without long-term current use of insulin ([facility]); Type 2 diabetes mellitus with hyperglycemia, without long-term current use of insulin ([facility]); Polypharmacy; Edema, unspecified typeStart: 08-20-2024 End: 99-28-4615uraqeneuccSSBGYO J HEMEYERNot AvailableStart: 08-20-2024 End: 66-26-8629Omkcdg Dewey Hernandez MD Work Phone: [facility] CI FM 100Start: 08-20-2024 End: 29-97-1570Sdgxcl eDwey Hernandez MD Work Phone: [facility] CI FM 100Start: 07-30-2024 End: 81-80-9636dcqrrtvtuhEEHHXZ J HEMEYERNot AvailableStart: 07-30-2024 End: 94-97-4060Rzuxlc Dewey Hernandez MD Work Phone: [facility] CI FM 100Start: 07-30-2024 End: 56-29-9221Rskqkp Dewey Hernandez MD Work Phone: [facility] CI FM 100Start: 07-06-2024 End: 47-62-0464Ixwgcv outpatient visit 15 minutesPhilip Juanita Agarwal Work Phone: [facility] FindlayStart: 95-88-5284btfeogkrluDrsfbz T [facility]tart: 06-15-2024 End: 24-21-1622Ahavkafyu Result Rashaad Hernandez MD Work Phone: noms External Department UnsolicitedStart: 06-15-2024 End: 65-09-6840Sfpvwwjgp Result Rashaad Hernandez MD Work Phone: NOCE External Department UnsolicitedStart: 06-14-2024 End: 08-79-0566IlnhqzBostiq J Hemeyer MD Work Phone: [facility] CI FM 100Comment on above:Diastolic congestive heart failure, NYHA class 1, unspecified congestive heart failure chronicity (C MS/HCC)Start: 06-04-2024 End: 36-40-6986Ufhvmtjvz Rashaad Hernandez MD Work Phone: noms CI FM 100Start: 05-28-2024 End: 90-44-9876EqiwupJerjut Wilkinson RN Work Phone: NOBV POPULATION HEALTHComment on above:Acquired hypothyroidism (CMS/HCC); Benign essential hypertension (CMS/HCC)Start: 05-24-2024 End: 80-31-9063Acowwq flowsKamaljit Hernandez MD Work Phone: [facility] CI FM 100Start: 05-24-2024 End: 01-56-4429Vhsgav flowsKamaljit Hernandez MD Work Phone: noMS CI FM 100Start: 05-24-2024 End: 51-94-8456tzgtbshpmuYRKPCY J HEMEYERNot AvailableStart: 05-03-2024 End: 31-00-8230Prfvbjxfs Rashaad Hernandez MD Work Phone: [facility] CI FM 100Start: 05-02-2024 End: 42-28-1962Dlbugwesp Result EncounterGeneric External Data ProviderNOMS External Department UnsolicitedStart: 05-02-2024 End: 49-35-5072Afabsbhqh Result EncounterGeneric External Data ProviderNOMS External Department UnsolicitedStart: 04-30-2024 End: 18-73-4030ncyqdcvfyiURJXET J HEMEYERNot AvailableStart: 04-30-2024 End: 49-56-1806Alggkd outpatient visit 15 minutesGrayson Hernandez MD Work Phone: [facility] CI FM 100Comment on above:Acute cystitis without hematuria (Primary Dx); Multiple falls; Generalized weakness; Disorientation; Sequela, post-stroke; Overweight (BMI 25.0-29.9)Start: 04-10-2024 End: 61-59-1320Ijfexdy encounter Jagjit Hernandez MD Work Phone: [facility]-Ultrasound Main [place] Work Phone: Start: 04-10-2024 End: 62-20-5198ukztxgjtarDrlito J Hemeyer MD Work Phone: [facility] Work Phone: Start: 04-10-2024 End: 36-07-2898avslyngwehYkqyul J Hemeyer MD Work Phone: [facility] Work Phone: Start: 04-10-2024 End: 37-90-0796Syhrbci encounter procedureGrayson Hernandez MD Work Phone: [facility]-Lab Main [place] Work Phone: Start: 03-08-2024 End: 91-62-9147Rwknawv encounter procedureGrayson Hernandez MD Work Phone: [facility] Nephrology [place] Work Phone: Start: 02-21-2024 End: 92-22-7861Kxmqfc outpatient visit 25 minutesEdshivam Hernandez MD Work Phone: [facility] CI FM 100Comment on above:Chronic organic brain syndrome; Anxiety associated with depression; AgitationStart: 02-21-2024 End: 57-09-2653Rpxvcq flowsKamaljit Hernandez MD Work Phone: [facility] CI FM 100Start: 02-21-2024 End: 90-07-8662Lkfpvh flowsKamaljit Hernandez MD Work Phone: noMS CI FM 100Start: 02-15-2024 End: 19-18-2151NwfusnDebzfx J Hemeyer MD Work Phone: [facility] CI FM 100Comment on above:Anxiety associated with depressionStart: 02-10-2024 End: 93-21-9633cdlmxmxqodRaybjh Wilkinson RN Work Phone: NOIN POPULATION HEALTHStart: 02-09-2024 End: 17-12-1313IyzxskMgufom J Hemeyer MD Work Phone: NOIN POPULATION HEALTHComment on above:Mixed hyperlipidemia (CMS/HCC)Start: 01-03-2024 End: 19-40-9383Zifpxrdpx Rashaad Hernandez MD Work Phone: NOIN CI FM 100Start: 11-02-2023 End: 31-17-2761Okvuteyul Result EncounterGeneric External Data ProviderNOMS External Department UnsolicitedStart: 11-02-2023 End: 98-75-4057Zhjkvgakt Result EncounterGeneric External Data ProviderNOIN External Department UnsolicitedStart: 09-27-2023 End: 50-57-1010Hvksxpjbva hospital visit by physicianAnshul Irizarry MD Work Phone: [facility] Nuclear MedicineComment on above: SOB (shortness of breath)ArrivedStart: 09-01-2023 End: 57-93-5102sdepjwohyqNNNN S VIGESAAMercy Milligan HospitalStart: 09-01-2023 End: 43-07-1487Dveskhbqrt hospital visit by Svetlana Lei MD Work Phone: [facility] Cardiac Cath/IR LabComment on above:Chronic a-fib (HCC)Start: 07-07-2023 End: 07-04-5307FcmFrancisca Wiseman Work Phone: [facility] [place]Start: 06-91-0932Fpabtdgkw encounterPortia Kim Physicians NeurologyStart: 85-20-3923VlugofJedarc Wilkinson RN Work Phone: NOMS BNS FMComment on above:Diastolic congestive heart failure, NYHA class 1, unspecified congestive heart failure chronicity (C MS/HCC)Start: 60-63-6277Rgnyvllvp encounterAlma Grayson Physicians NeurologyComment on above:follow up appointmentStart: 07-25-2022 End: 83-24-2173knlvzgydgrSOCCLAJ D KATKOFacility:J2Ntmet: 07-17-2022 End: 29-58-4995atuxvmudqeBfcwtjniu Chuck Other [facility] [place] Other Start: 93-89-4443Huynmh outpatient visit 15 minutes Flores ChuckFPG Urgent Care ClydeStart: 06-23-2022 End: 40-21-9787Uzttv M Alkaliby Work Phone: RVDaniele SanduskyStart: 04-42-8464hfekkunavlCN EDWARD HEMEYER .Facility:B4Xpgna: 12-30-2021 End: 46-90-0163xxchxycwhfEH ABHI Saldana WESTFacility:D4Beoxh: 12-16-2021 End: 25-85-4695ktddtfbxkcFP EDWARD HEMEYER .Facility:N7Sfkzp: 12-10-2021 End: 28-22-1370opgezujadtNA EDSHIVAM HEMECRISTIN .Facility:Q4Jbnvh: 09-07-2021 End: 21-00-4324Sgmqsdunqw [facility] EkgMWHZ EKGComment on above:PalpitationsStart: 08-17-2021 End: 41-78-2986emdgsulafjCC EDWARD HEMEYER .Facility:W8Qbsnb: 08-11-2021 End: 21-02-8649csdhjadrkwKPPIXS SAMSA .Facility:S9Dkvju: 06-22-2021 End: 91-20-4472xnidiimlmyEaklkw Felter Other [facility] [place] Other Start: 38-02-5079Qzyyqh outpatient visit 25 minutes Martha RendonFPAnum Pain Management Bone CreekStart: 05-12-2021 End: 17-50-9484Wvgxety K Dabbs Work Phone: RVDaniele DossuskyStart: 06-28-2020 End: 39-76-6319Oedjcc Lenora Bermeo Work Phone: [facility] Start: 04-23-2020 End: 24-14-0748Kbwyzgm K Dabbs Work Phone: [facility] [place]kyStart: 02-25-2020 End: 99-52-0638Lulgdjbxcw hospital visit by Bel Molina EKG Comment on above:Kidney insufficiency; Hypertension, unspecified type; Shortness of breath; Hyperlipidemia, unspecified hyperlipidemia type; Vitamin D deficiency disease; Other specified diabetes mellitus with other specified complication, unspecified whether custodial insulin use (HCC)Start: 10-05-2019 End: 18-83-7727Zmbzctbvap hospital visit by Bel Molina RESPIRATORY THERAPYComment on above:Aortic valve stenosis, etiology of cardiac valve disease unspecified; Shortness of breath; Hypertension, unspecified type; Hyperlipidemia, unspecified hyperlipidemia type; Vitamin D deficiency diseaseStart: 02-06-4823amzwipnhtvQXJWXUR PROVIDER [facility]Start: 07-[facility]-2019 End: 48-37-2201Beomirilqt and management of inpatientDAAFFINITY HEALTH PARTNERSNOSumma Health Barberton Campustart: 07-03-2019 End: 44-33-5422Ahsskloesj and management of inpatientDaniel Dibardino Work Phone: stvz CAR 1Start: 06-29-2019 End: 85-85-8930Ezxezdrzuy hospital visit by [facility] [place] CT ScanComment on above:CAD, multiple vessel; Pre-op testingCAD, multiple vessel; Pre-op testing; Bilateral carotid bruitsStart: 06-27-2019 End: 83-07-3113Ounrxes encounter procedureVASILIY PIÑAMountains Community Hospitaltart: 06-27-2019 End: 93-47-9941Xavfiwdmey hospital visit by Glenna 428STVZ EchoComment on above:ArrivedStart: 06-25-2019 End: 47-28-2523Otmzwxm encounter procedureDANIEL [facility] FORK HOSPITALARDINOSumma Health Barberton Campustart: 06-25-2019 End: 34-84-3685Fmbpezozzd hospital visit by Glenna [address] [place] [address] RadiologyComment on above:ArrivedStart: 06-06-2019 End: 13-89-8256Yoneyju encounter procedureGood Samaritan Hospitaltart: 06-06-2019 End: 84-32-8807Dmupusgcdh hospital visit by physicianTasia [facility] Hospitaldex[facility] Work Phone: [facility] Procedural Care UnitStart: 26-59-3868Bisnocu encounter procedureJ.[facility]. [facility] Start: 47-23-9783Ktkogjs encounter procedureGood Samaritan Hospitaltart: 05-10-2019 End: 47-62-2392Srbskkfsab hospital visit by Bel Hernandez MD Other Phone: mwhZ RESPIRATORY THERAPYComment on above: Hypertension, unspecified type; Hyperlipidemia, unspecified hyperlipidemia type; Other specified diabetes mellitus with other specified complication, unspecified whether orthotics assistant insulin use (HCC); Vitamin D deficiency diseaseSystolic murmur; Moderate mitral regurgitation; Severe aortic stenosisStart: 04-18-2019 End: 75-18-8746Bzxbjqf K Brianne Work Phone: [facility] SelamconcepciónyStart: 04-19-2018 End: 48-19-3509Jkfsdwv K Brianne Work Phone: [facility] [place]Start: 01-19-2017 End: 56-36-7048Syzsggx K Brianne Work Phone: [facility] [place]Start: 11-03-2015 End: 01-89-1567Yjyyfxe K Brianne Work Phone: rva [place]kyStart: 11-04-2014 End: 69-72-5829Wzd K Orgel Work Phone: [facility] [place]Start: 10-29-2013 End: 92-23-7980Vrz K Orgel Work Phone: [facility] [place]Start: 10-20-2012 End: 37-32-6464Ajg K Orgel Work Phone: rvA [place]Start: 08-16-2011 End: 59-35-9075Ccu K Orgel Work Phone: rvA [place]Start: 04-26-2011 End: 88-93-1921Ops K Orgel Work Phone: rvA [place] Procedures DateProcedureProcedure DetailPerforming ClinicianStart: 04-03-1043NHE URINE T PROTEIN CREAT RATIOGeneric External Data ProviderStart: 30-57-2532FFE BASIC METABOLIC PANELGrayson Hernandez MD Work Phone: Start: 15-55-6676PIW PHOSPHOROUSEdshivam Hernandez MD Work Phone: Start: 30-99-4269MYX MAGNESIUMGeneric External Data ProviderStart: 32-52-2037Injkx of magnesiumPamela S Amanda BARREL LOADER - ENVIRONMENTAL TECH Work Phone: Start: 81-15-4241EPT 12-LEADGeneric External Data ProviderStart: 38-65-4686FHR CBC WITH AUTO DIFFGeneric External Data Provider Start: 42-04-7507Qmkn tthrc r-t 2d w/wom-mode compl spec&colr dGreg Carlos Eduardo Irizarry MD Work Phone: Start: 05-87-7685SYAO CBC WITH PLATELET NO DIFFERENTIALGeneric External Data ProviderStart: 07-06-2024 End: 15-66-5213Dcegjnngudyq ophthalmic imaging retinaPhilip Stefano ChangStart: 15-32-5014HLI BASIC METABOLIC PANELGrayson Hernandez MD Work Phone: Start: 06-51-6958XKQ 12-LEADGeneric External Data ProviderStart: 18-61-9416TTJ CBC WITH AUTO DIFFGeneric External Data Provider Start: 74-57-5487Ogflkpwzcvjtuma of bilateral kidneysGrayson Hernandez MD Work Phone: Start: 71-57-3859URJ 12-LEADGeneric External Data ProviderStart: 83-08-6539Vguikhbqvl spect multiple studiesGreg Carlos Eduardo Irizarry MD Work Phone: Start: 07-07-2023 End: 30-52-8367Dtagrdpalvct ophthalmic imaging retinaPhilip Stefano Chang MDStart: 53-43-2444Sbckpke of coronary artery bypass graftingHx of CABGShannen Velazquez RN Work Phone: Start: 06-23-2022 End: 97-26-4779Ewrpqcsgdxqr ophthalmic imaging retinaPhilip Stefano Chang MDStart: 35-51-3960Hdflc depression screening assessmentAlma Hankins RNStart: 05-26-2021 MammographyShannen Velazquez RN Work Phone: Start: 05-12-2021 End: 20-08-3029Liiwxiggdjkd ophthalmic imaging retinaPhilip Stefano Chang MDStart: 91-22-0561LlkoedeyhutZxjekr Wilkinson RN Work Phone: Start: 04-23-2020 End: 09-04-9301Grvdmilsvsyx ophthalmic imaging retinaPhilip Stefano Chang MDStart: 41-54-5584AMIMWZBCSUA DIBARDINOStart: 62-73-6846PZPHUAJ NUTRITION SUPPLEMENTS CARO DIBARDINOStart: 15-34-7537Wdprkcx blood reagent stripDANIEL DIBARDINO Start: 81-85-1567VXMUEQRIZJZ DIBARDINOStart: 69-81-0985Eckkfpv blood reagent stripDaniel Dibardino Work Phone: Start: 45-90-3895NABPNUNOD PATIENTDANIEL DIBARDINO Start: 79-80-7827ZVPZJERZQDF DIBARDINOStart: 12-55-5472ZEFTOSZQ OXYGEN THERAPY PROTOCOLDANIEL DIBARDINOStart: 95-19-2728Kyppyon blood reagent stripDANIEL DIBARDINOStart: 57-56-7998Nkhua of magnesiumDANIEL DIBARDINOStart: 07-24-2019 Basic metabolic panel calcium totalDANIEL DIBARDINOStart: 62-86-9336Uxhcj count complete automatedDANIEL DIBARDINOStart: 21-66-5956Ljvyoacklez timeDANIEL DIBARDINOStart: 76-58-4936Dvgseusllfersz time partial plasma/whole bloodDANIEL DIBARDINOStart: 21-78-4118Matparf blood reagent stripDaniel Dibardino Work Phone: Start: 26-29-8036Fbtuw of magnesiumDaniel Dibardino Work Phone: Start: 38-44-0850Leaxc metabolic panel calcium total Caro Dibardino Work Phone: Start: 94-87-7304Jnier count complete automatedDaniel Dibardino Work Phone: Start: 31-86-5710Ljtefngrkhp timeDaniel Dibardino Work Phone: Start: 46-84-6562Lfragamzoapwtr time partial plasma/whole bloodDaniel Dibardino Work Phone: Start: 95-85-2348JPSHBBLNNHN DIBARDINOStart: 04-35-4759RFDYUT INTAKE AND OUTPUTDANIEL DIBARDINOStart: 17-21-0459FFSBIE AND OUTPUTDANIEL DIBARDINOStart: 30-48-1977NBLRGBEKWPQ DIBARDINOStart: 07-23-2019 Glucose blood reagent stripDANIEL DIBARDINOStart: 37-04-6813VKHCWESCOSB DIBARDINOStart: 03-84-4362Ktavkhs blood reagent stripDaniel Dibardino Work Phone: Start: 44-89-2808Dqmkioa blood reagent stripDANIEL DIBARDINOStart: 16-09-9319DGBBTTSXKOL DIBARDINOStart: 34-49-3807Qfvymmb blood reagent stripDaniel Dibardino Work Phone: Start: 59-30-8676CWNNJCJEPZM DIBARDINOStart: 05-21-0469Lkyqnvv blood reagent stripDANIEL DIBARDINOStart: 00-08-4018TSXX CARB CONTROLDANIEL DIBARDINOStart: 10-59-6978Yqukoag blood reagent stripDaniel Dibardino Work Phone: Start: 34-51-6879FXKVEXDUYUF DIBARDINOStart: 88-64-7891LTQTZDTU OXYGEN THERAPY PROTOCOLDANIEL DIBARDINOStart: 07-23-2019 Comprehensive metabolic panelDANIEL DIBARDINOStart: 93-94-0128Eimxuvh blood reagent stripDANIEL DIBARDINOStart: 60-84-4270Kvija of magnesiumDANIEL DIBARDINO Start: 30-64-6599Wbqvn of phosphorus inorganicDANIEL DIBARDINOStart: 07-23-2019 Basic metabolic panel calcium totalDANIEL DIBARDINOStart: 59-52-3167Khagt count complete automatedDANIEL DIBARDINOStart: 75-51-9325Qprccmlylzx timeDANIEL DIBARDINOStart: 14-18-0635Fdjhbvatfneodj time partial plasma/whole bloodDANIEL DIBARDINOStart: 65-97-2546EZFIJ METABOLIC PANEL W/ REFLEX TO MG FOR LOW KSindhu Avula Work Phone: Start: 73-61-7775Paetvbv blood reagent stripDaniel Dibardino Work Phone: Start: 82-44-0285Phhdv of magnesiumDaniel Dibardino Work Phone: Start: 60-70-9229Hdauo of phosphorus inorganicDaniel Dibardino Work Phone: Start: 75-08-5543Lknek metabolic panel calcium total Caro Dibardino Work Phone: Start: 94-90-3917Yoyyd count complete automatedDaniel Dibardino Work Phone: Start: 66-74-0668Hjctvtabizf timeDaniel Dibardino Work Phone: Start: 20-13-7901Qfzsdmjojeizuy time partial plasma/whole bloodDaniel Dibardino Work Phone: Start: 91-79-7555KJYTHRIIAPP DIBARDINOStart: 66-19-4388BIAURQ INTAKE AND OUTPUTDANIEL DIBARDINOStart: 31-57-3572SOOOSC AND OUTPUTDANIEL DIBARDINOStart: 66-36-1993XHBESHYPGML DIBARDINOStart: 07-22-2019 Potassium serum plasma/whole bloodDANIEL DIBARDINOStart: 35-73-5321Ypgrqxz blood reagent stripDANIEL DIBARDINOStart: 38-18-3055MOPEJQNQVCC DIBARDINOStart: 89-80-4929Nzlcvverk serum plasma/whole bloodDaniel Dibardino Work Phone: Start: 01-42-7399Ynfufym blood reagent stripDaniel Dibardino Work Phone: Start: 79-05-4583HSNFFYGOQEP DIBARDINOStart: 32-48-2343WCIDFNCWOFJ DIBARDINOStart: 05-91-4905Giuolsw blood reagent strip CARO DIBARDINOStart: 07-33-7603VCK CLINICAL BEDSIDE SWALLOW EVALUATION AND TREATMENTDANIEL DIBARDINOStart: 97-15-4588ZRW EVAL AND TREATDANIEL DIBARDINO Start: 69-02-0646Gbllsra blood reagent stripDaniel Dibardino Work Phone: Start: 06-28-4597Crrqfv and language therapy regime Kanwal Anand Work Phone: Start: 15-71-3201YXPBEFODREB DIBARDINOStart: 03-24-4182GINTJMIL OXYGEN THERAPY PROTOCOLDANIEL DIBARDINOStart: 07-22-2019 Glucose blood reagent stripDANIEL DIBARDINOStart: 24-45-9599Nqn routine ecg w/least 12 lds w/i&rDANIEL DIBARDINOStart: 33-91-0931DKO REPORTDANIEL DIBARDINO Start: 07-22-2019 End: 64-42-3007Pswouov blood reagent stripDaniel Dibardino Work Phone: Start: 13-60-2737Hwk routine ecg w/least 12 lds w/i&r Nuha Coronel Work Phone: Start: 04-39-3379DUY REPORTHpf ScanningStart: 30-52-2777Eueia of magnesiumDANIEL DIBARDINOStart: 63-18-0976Rmtcb metabolic panel calcium totalDANIEL DIBARDINOStart: 34-12-3449Hmmjq count complete automatedDANIEL DIBARDINOStart: 00-82-5865Tjevuuckjtr timeDANIEL DIBARDINOStart: 56-25-3192Ybztcjiaollnfa time partial plasma/whole bloodDANIEL DIBARDINOStart: 99-12-9583DQAKSXSMJSV DIBARDINOStart: 68-06-4752Iiqvs of magnesiumDaniel Dibardino Work Phone: start: 66-72-9460Rgits metabolic panel calcium total Caro Dibardino Work Phone: Start: 35-16-3251Nvscf count complete automatedDaniel Dibardino Work Phone: Start: 93-94-8348Cgxkjaoavdr timeDaniel Dibardino Work Phone: Start: 81-79-0056Rarwhfnlbkjwjg time partial plasma/whole bloodDaniel Dibardino Work Phone: Start: 84-15-4375LRZBSA INTAKE AND OUTPUTDANIEL DIBARDINOStart: 62-61-2779RHNZFJ AND OUTPUTDANIEL DIBARDINOStart: 07-22-2019 BIPAPDANIEL DIBARDINOStart: 17-48-8700Sojnuyjggg exam chest single viewDANIEL DIBARDINOStart: 42-33-2352NTSEAFJPXFZ DIBARDINOStart: 87-18-6787JLUUJ GAP (CALC) POCDANIEL DIBARDINOStart: 15-60-0242OFRJTWIT BLOOD GAS, POCDANIEL DIBARDINO Start: 54-96-2935Ktepj count hemoglobinDANIEL DIBARDINOStart: 19-46-7471Vidrzau ionizedDANIEL DIBARDINOStart: 84-41-5813Otdpetoq other sourceDANIEL DIBARDINO Start: 66-80-7839MJUENVDATU W/GFR POINT OF CAREDANIEL DIBARDINOStart: 07-21-2019 Gluc bld gluc mntr dev cleared fda spec home useDANIEL DIBARDINOStart: 09-99-4560WNEGES ACID,POINT OF CAREDANIEL DIBARDINOStart: 72-10-3385Potafxlcd serum plasma/whole bloodDANIEL DIBARDINOStart: 34-15-2664Hhqwag serum plasma or whole bloodDANIEL DIBARDINOStart: 67-85-6837VJM DRAWDANIEL DIBARDINOStart: 53-90-3670Awakcwjmfccamv time partial plasma/whole bloodDANIEL DIBARDINOStart: 91-46-2168Qxostsmqni exam chest single viewJames A Eileen Work Phone: Start: 50-20-6061OQPYR GAP (CALC) POCDaniel Dibardino Work Phone: Start: 21-33-4495WNUPHWFN BLOOD GAS, POCDaniel Dibardino Work Phone: Start: 34-49-2722Wsfav count hemoglobinDaniel Dibardino Work Phone: Start: 39-12-8722TQMHOJK, IONIC (POC)Caro Dibardino Work Phone: Start: 21-41-4616Bimxarut [Moles/Vol]Caro Dibardino Work Phone: Start: 99-29-3641BLZWIOSJIP W/GFR POINT OF CAREDaniel Dibardino Work Phone: Start: 43-20-9724Llso bld gluc mntr dev cleared fda spec home useDaniel Dibardino Work Phone: Start: 65-02-7192CBPVKR ACID,POINT OF CAREDaniel Dibardino Work Phone: Start: 35-26-7346Dkoebxfvv [Moles/Vol]Caro Dibardino Work Phone: Start: 40-55-2017Noffmr [Moles/Vol]Caro Dibardino Work Phone: Start: 40-20-0372QEK DRAWDaniel Dibardino Work Phone: Start: 10-83-2502Qcfxocnberlwpa time partial plasma/whole bloodDaniel Dibardino Work Phone: Start: 88-31-9855Knhpsca blood reagent stripDANIEL DIBARDINOStart: 80-32-1329Bphrzcb blood reagent stripDaniel Dibardino Work Phone: Start: 56-38-3517Hdjpzit blood reagent stripDANIEL DIBARDINOStart: 51-10-1770Ezjmkwriakhuwe time partial plasma/whole bloodDANIEL DIBARDINOStart: 08-83-2711Kfpokyl blood reagent stripDaniel Dibardino Work Phone: Start: 27-82-0000TJPEMGCP OXYGEN THERAPY PROTOCOL CARO DIBARDINOStart: 33-92-0914Ccrmqza blood reagent stripDANIEL DIBARDINO Start: 52-90-0533Zzfymphklismuu time partial plasma/whole bloodDaniel Dibardino Work Phone: Start: 46-19-7400Lbaapgm blood reagent stripDaniel Dibardino Work Phone: Start: 92-81-5626Mddeg of magnesiumDANIEL DIBARDINO Start: 07-28-7235Hswqi metabolic panel calcium totalDANIEL DIBARDINOStart: 98-20-3216Gstaz count complete automatedDANIEL DIBARDINOStart: 07-21-2019 Prothrombin timeDANIEL DIBARDINOStart: 04-70-1821Ezuoxoqcenjxmo time partial plasma/whole bloodDANIEL DIBARDINOStart: 72-79-0038Fdlpg of magnesiumDaniel Dibardino Work Phone: Start: 09-50-4719Bvjdj metabolic panel calcium total Caro Dibardino Work Phone: Start: 79-63-6280Qxhbs count complete automatedDaniel Dibardino Work Phone: Start: 14-60-8266Wapvnteorjr timeDaniel Dibardino Work Phone: Start: 19-85-3002Foioevqafumumd time partial plasma/whole bloodDaniel Dibardino Work Phone: Start: 80-76-3533Zfc routine ecg w/least 12 lds w/i&r CARO DIBARDINOStart: 95-75-3135LWQBAA INTAKE AND OUTPUTDANIEL DIBARDINOStart: 86-62-3342OFEDNU AND OUTPUTDANIEL DIBARDINOStart: 48-24-7886Oikcdaf blood reagent stripDANIEL DIBARDINOStart: 03-55-3335Vfxkyib blood reagent stripDaniel Dibardino Work Phone: Start: 92-04-9915Diuyawt blood reagent stripDaniel Dibardino Work Phone: Start: 85-05-8579Zcbgbdf blood reagent stripDANIEL DIBARDINOStart: 63-14-6867Qmodawoldz exam abdomen 1 viewDANIEL DIBARDINOStart: 48-01-0651Udbajvz blood reagent stripDaniel Dibardino Work Phone: Start: 50-80-0338Qhftoyspym exam abdomen 1 viewSalil Avasthi Work Phone: Start: 66-75-9693Tuhysvh blood reagent stripDANIEL DIBARDINOStart: 11-32-1611YGKXZUKG PATIENTDANIEL DIBARDINOStart: 94-25-9358MZ CONSULT TO INTERNAL MEDICINEDANIEL DIBARDINOStart: 94-38-3511RRDGNHKWOGF TUBE INSERTIONDANIEL DIBARDINOStart: 89-66-6778Ppeylkh blood reagent stripDaniel Dibardino Work Phone: Start: 63-68-8300HZFUITND OXYGEN THERAPY PROTOCOL CARO DIBARDINOStart: 63-51-3370OPC CLINICAL BEDSIDE SWALLOW EVALUATION AND TREATMENTDANIEL DIBARDINOStart: 37-43-2071YE EVAL AND TREATDANIEL DIBARDINO Start: 58-69-7880Zmvtp of magnesiumDANIEL DIBARDINOStart: 08-84-8088Nhzcr of phosphorus inorganicDANIEL DIBARDINOStart: 00-48-6890Dbamj metabolic panel calcium totalDANIEL DIBARDINOStart: 78-57-6917Tbvhm count complete automated CARO DIBARDINOStart: 25-19-9126Rtogrkzdkhc timeDANIEL DIBARDINOStart: 53-80-0074Modhgsltlfeayp time partial plasma/whole bloodDANIEL DIBARDINOStart: 65-01-7425Orc routine ecg w/least 12 lds w/i&rDANIEL DIBARDINOStart: 07-20-2019 EKG REPORTDANIEL DIBARDINOStart: 86-17-3519Jnqjqft blood reagent stripDANIEL DIBARDINOStart: 66-41-4876Fpvnc of magnesiumDaniel Dibardino Work Phone: Start: 05-78-4846Jvqjz of phosphorus inorganicDaniel Dibardino Work Phone: Start: 10-11-0397Jhceg metabolic panel calcium total Caro Dibardino Work Phone: Start: 28-32-2784Apoas count complete automatedDaniel Dibardino Work Phone: Start: 91-84-2879Tjqlkaiayts timeDaniel Dibardino Work Phone: Start: 63-64-1144Vletcsxzzqckwe time partial plasma/whole bloodDaniel Dibardino Work Phone: Start: 74-85-4215Nsr routine ecg w/least 12 lds i&r onlyMobasser Homer Work Phone: Start: 56-49-2732DIK REPORTHpf ScanningStart: 18-23-2717Tgeijcy blood reagent stripDaniel Dibardino Work Phone: Start: 61-62-2856Fsmajrzxcnnotz time partial plasma/whole bloodDANIEL DIBARDINOStart: 52-51-5372LYFQPD INTAKE AND OUTPUT CARO DIBARDINOStart: 07-98-3842BSWKRQ AND OUTPUTDANIEL DIBARDINOStart: 55-10-8092Xuxxwhfemfrnjl time partial plasma/whole bloodDaniel Dibardino Work Phone: Start: 14-90-0099Ibxsjwl blood reagent stripDANIEL DIBARDINOStart: 27-70-8999Ovbdffbcpvlfoz time partial plasma/whole bloodDANIEL DIBARDINOStart: 14-73-7579Hcxuivig screenDaniel DibardinoStart: 07-19-2019 Glucose blood reagent stripDaniel Dibardino Work Phone: Start: 19-29-8256Nyhmiojzddbews time partial plasma/whole bloodDaniel Dibardino Work Phone: Start: 00-24-1509Ugvrnba blood reagent stripDANIEL DIBARDINOStart: 52-87-6765LNK EXTERNAL REFERRAL TO CARDIAC REHABDANIEL DIBARDINO Start: 17-58-3338Hyepgkrwjm exam chest single viewDANIEL DIBARDINOStart: 40-70-3522Sjtnzwh blood reagent stripDaniel Dibardino Work Phone: Start: 99-95-2001ODBACKEQKIAUJOAN DIBARDINOStart: 97-71-7829Ncbhmufnxy exam chest single viewNicaguilar Beteha Work Phone: Start: 15-29-4971DDLXOMXLMDBpapu K Rajesh Work Phone: Start: 89-54-9451Tkyoyuslmbjrkb time partial plasma/whole bloodDANIEL DIBARDINOStart: 96-11-9327Cutlqji blood reagent strip CARO DIBARDINOStart: 08-53-8201Cnandwsrpvmrlv time partial plasma/whole blood Vasiliy Bethea Work Phone: Start: 41-46-2683Brlzfzi blood reagent stripDaniel Dibardino Work Phone: Start: 42-20-0029Qgyjsykgnj exam abdomen 1 viewDANIEL DIBARDINOStart: 93-73-6523KGZHVRLE OXYGEN THERAPY PROTOCOLDANIEL DIBARDINOStart: 38-52-4455Kovifxmtda exam abdomen 1 viewDaniel Dibardino Work Phone: Start: 13-78-2083Sukalzv blood reagent stripDANIEL DIBARDINOStart: 69-62-7520End routine ecg w/least 12 lds w/i&rDANIEL DIBARDINO Start: 92-55-9887OHS REPORTDANIEL DIBARDINOStart: 60-42-8321Fuvbpqw blood reagent stripDaniel Dibardino Work Phone: Start: 30-57-2746Zxg routine ecg w/least 12 lds i&r onlyMobassbette Coronel Work Phone: Start: 46-91-2126PRY REPORTHpf ScanningStart: 09-31-1521Lxvcl of magnesiumDANIEL DIBARDINOStart: 38-58-7491Kkumy metabolic panel calcium totalDANIEL DIBARDINOStart: 86-96-6822Svdyz count complete automatedDANIEL DIBARDINOStart: 56-22-1423Nsfdhwavjff timeDANIEL DIBARDINOStart: 58-10-8926Mfjeyoqpxgvive time partial plasma/whole bloodDANIEL DIBARDINOStart: 27-50-3015HNULKNPV BLOOD GAS, POCDANIEL DIBARDINOStart: 08-29-5985Uxeb bld gluc mntr dev cleared fda spec home useDANIEL DIBARDINOStart: 97-83-1225Bvtnc of magnesiumDaniel Dibardino Work Phone: Start: 29-17-7982Vjzjs metabolic panel calcium total Caro Dibardino Work Phone: Start: 26-22-6498Wocwz count complete automatedDaniel Dibardino Work Phone: Start: 14-02-1142Ltsaoqufoyn timeDaniel Dibardino Work Phone: Start: 89-36-5704Csfxnwxmjugznf time partial plasma/whole bloodDaniel Dibardino Work Phone: Start: 18-94-0574CPQWPEZG BLOOD GAS, POCDaniel Dibardino Work Phone: Start: 88-76-5857Kpgy bld gluc mntr dev cleared fda spec home useDaniel Dibardino Work Phone: Start: 16-78-8007SUZDHO INTAKE AND OUTPUTDANIEL DIBARDINOStart: 30-97-7555QHMFYC AND OUTPUTDANIEL DIBARDINOStart: 07-19-2019 Glucose blood reagent stripDANIEL DIBARDINOStart: 81-38-6555Rrreaxg blood reagent stripDaniel Dibardino Work Phone: Start: 90-89-0062Rkvldsc blood reagent stripDaniel Dibardino Work Phone: Start: 32-09-0128Dwhswis blood reagent stripDANIEL DIBARDINOStart: 78-29-1291Gpbbmpg blood reagent stripDaniel Dibardino Work Phone: Start: 90-55-3451WLRSYZXNYF NON-VIOLENT OR HVU-GZHG-TJYYEAVEXJYOSBWPK DIBARDINOStart: 73-89-9551Csxipzb blood reagent strip CARO DIBARDINOStart: 74-55-0902Vzndewv blood reagent stripDaniel Dibardino Work Phone: Start: 14-21-4667Bfvjzvr blood reagent stripDANIEL DIBARDINOStart: 64-87-7787QEGJRSIP OXYGEN THERAPY PROTOCOLDANIEL DIBARDINOStart: 51-66-5832Vymdiaatnh exam chest single viewDANIEL DIBARDINOStart: 19-94-7504Pol routine ecg w/least 12 lds w/i&rDANIEL DIBARDINOStart: 05-29-2533HWQ REPORT CARO DIBARDINOStart: 77-51-3907Poszksx blood reagent stripDaniel Dibardino Work Phone: Start: 84-54-8748Vetamavpcw exam chest single view Vasiliy A Bethea Work Phone: Start: 33-64-0795Kpuwyin blood reagent stripDaniel Dibardino Work Phone: Start: 79-31-4480Mzd routine ecg w/least 12 lds i&r onlyMobasser Homer Work Phone: Start: 24-31-0237VRU REPORTHpf ScanningStart: 75-86-3865Tmzzh of magnesiumDANIEL DIBARDINOStart: 96-14-9922Mxtlt of phosphorus inorganicDANIEL DIBARDINOStart: 23-82-4405Gobxy metabolic panel calcium total CARO DIBARDINOStart: 30-96-5948Kgbte count complete automatedDANIEL DIBARDINO Start: 64-64-6173Mwbkeldsxri timeDANIEL DIBARDINOStart: 56-91-5320Asryxiqepozvkr time partial plasma/whole bloodDANIEL DIBARDINOStart: 78-37-4533ZKDHJDEX BLOOD GAS, POCDANIEL DIBARDINOStart: 76-13-3730Pypnd of magnesiumDaniel Dibardino Work Phone: Start: 97-36-6991Waebr of phosphorus inorganicDaniel Dibardino Work Phone: Start: 68-51-2615Gardm metabolic panel calcium total Caro Dibardino Work Phone: Start: 63-36-9889Lralv count complete automatedDaniel Dibardino Work Phone: Start: 12-70-2939Lniienfrzvx timeDaniel Dibardino Work Phone: Start: 50-23-6328Vhkpokfxnzttof time partial plasma/whole bloodSinan Marc Work Phone: Start: 69-16-9047QGMSLFMI BLOOD GAS, POCDaniel Dibardino Work Phone: Start: 63-94-6893ETHETH AND OUTPUTDANIEL DIBARDINO Start: 25-41-4352EOCHKA INTAKE AND OUTPUTDANIEL DIBARDINOStart: 07-17-2019 Glucose blood reagent stripDANIEL DIBARDINOStart: 20-12-0183Arkewcb blood reagent stripDaniel Dibardino Work Phone: Start: 05-85-5976OHMKYSNTRA NON-VIOLENT OR LPQ-RZET-BWUOAVBZAMEAHVRET DIBARDINOStart: 19-80-9154XJ CONSULT TO NEUROSURGERY CARO LOCKEARDINOStart: 03-47-9870Fvszaod blood reagent stripDANIEL DIBARDINO Start: 71-85-4233Ercoqta blood reagent stripDaniel Dibardino Work Phone: Start: 97-63-8619Zmlggelfbvg blood/blood components CARO LOCKEARDINOStart: 98-60-8307Rfqfmyf blood reagent stripDANIEL DIBARDINO Start: 19-25-5942Wgugunwbuxi blood/blood componentsHpf ScanningStart: 07-17-2019 Glucose blood reagent stripDaniel Dibardino Work Phone: Start: 43-56-6738CIYOEAWX OXYGEN THERAPY PROTOCOL CARO LOCKEARDINOStart: 96-80-3843Oyw routine ecg w/least 12 lds w/i&rDANIEL DIBARDINOStart: 14-18-6709NYZ REPORTDANIEL DIBARDINOStart: 32-84-5546Ksgeeid blood reagent stripDANIEL DIBARDINOStart: 93-90-9356Feltvgwiwq exam chest single viewDANIEL DIBARDINOStart: 18-99-2293Phybx of magnesiumDANIEL DIBARDINOStart: 86-42-6561Ebdaf metabolic panel calcium totalDANIEL DIBARDINOStart: 07-17-2019 Blood count complete automatedDANIEL DIBARDINOStart: 02-26-8035Wmwtrchlsom time CARO DIBARDINOStart: 13-19-9815Cspxhmtwavfcxc time partial plasma/whole blood CARO DIBARDINOStart: 90-94-2601KUNPYHUH BLOOD GAS, POCDANIEL DIBARDINOStart: 04-20-6440Zrgc bld gluc mntr dev cleared fda spec home useDANIEL DIBARDINOStart: 91-59-7649Ybh routine ecg w/least 12 lds i&r onlyMobawendy Coronel Work Phone: Start: 37-65-5675TNC REPORTHpf ScanningStart: 90-44-8791Anztggm blood reagent stripDaniel Dibardino Work Phone: Start: 12-99-0994Uulwycggeg exam chest single view Vasiliy Sanabria Bethea Work Phone: Start: 39-51-2780Yzurc of magnesiumDaniel Dibardino Work Phone: Start: 99-99-8455Lfzjd metabolic panel calcium total Caro Dibardino Work Phone: Start: 32-16-4706Gjvmm count complete automatedDaniel Dibardino Work Phone: Start: 17-05-2610Ozlxskqheyz timeDaniel Dibardino Work Phone: Start: 95-84-1233Zfvpqwhawuiivr time partial plasma/whole bloodSinan Marc Work Phone: Start: 51-56-9692DUODFNWR BLOOD GAS, POCDaniel Dibardino Work Phone: Start: 82-40-3716Zxya bld gluc mntr dev cleared fda spec home useDaniel Dibardino Work Phone: Start: 49-62-1533UMMLCX INTAKE AND OUTPUTDANIEL DIBARDINOStart: 77-55-4436FPYKKS AND OUTPUTDANIEL DIBARDINOStart: 07-17-2019 TRANSFUSE RED BLOOD CELLSDANIEL DIBARDINOStart: 32-02-9460BKVTABYRN RED BLOOD CELLSMobasser Homer Work Phone: Start: 50-27-1388Acaptqj blood reagent stripDANIEL DIBARDINOStart: 21-98-4236Iugpydlqbgflei time partial plasma/whole bloodDANIEL DIBARDINOStart: 25-33-1534Spwyvif blood reagent stripDaniel Dibardino Work Phone: Start: 53-32-4181Gpp brain brain stem w/o w/contrast materialDANIEL DIBARDINOStart: 95-91-7989Ais spinal canal cervical w/o contrast matrlDANIEL DIBARDINOStart: 61-63-8637Lpkkxzywnlnbqm time partial plasma/whole bloodRaza Dakota Work Phone: Start: 92-41-2758Qbzcoyl blood reagent stripDANIEL DIBARDINOStart: 79-98-1252Bbi brain brain stem w/o w/contrast materialScotty Quinones Work Phone: Start: 35-43-7247Vwn spinal canal cervical w/o contrast matrlScottmarycruz Quinones Work Phone: Start: 79-97-5563ZQHWTQEHZS NON-VIOLENT OR YPE-ODRS-AXWSCLWSBQLRCCSTC DIBARDINOStart: 52-00-1978Pjntziv blood reagent strip Caro Dibardino Work Phone: Start: 57-27-5347Qbewx bld/component collj storage predepositedDANIEL DIBARDINOStart: 22-91-2432Tjnrkobxrqmyjh time partial plasma/whole bloodDANIEL DIBARDINOStart: 46-57-0643FMDJ AND SCREENDANIEL DIBARDINOStart: 15-72-5092Vxtfsbu blood reagent stripDANIEL DIBARDINOStart: 76-96-9160Whl routine ecg w/least 12 lds w/i&rDANIEL DIBARDINOStart: 07-16-2019 BLOOD BANK SPECIMENDaniel Dibardino Work Phone: Start: 68-51-0544Movaq typing serologic aboRaza Dakota Work Phone: Start: 62-58-6827Jbwhhaxapvwcve time partial plasma/whole bloodSinan Marc Work Phone: Start: 93-32-0970NNQHKLA RBC (CROSSMATCH)CARO DIBARDINOStart: 45-53-9034MXJAVUOIEOP REACTION MANAGEMENTDANIEL DIBARDINOStart: 39-99-2644RXSWMW INFORMED CONSENTDANIEL DIBARDINOStart: 71-51-4106Ikbkpns blood reagent stripDaniel Dibardino Work Phone: Start: 25-73-0050RIFGRHWD OXYGEN THERAPY PROTOCOL CARO DIBARDINOStart: 49-14-2367Ohbsmsx blood reagent stripDANIEL DIBARDINO Start: 65-40-2606Sijtidnpsx exam chest single viewDANIEL DIBARDINOStart: 82-09-2204IUIHJHON BLOOD GAS, POCDANIEL DIBARDINOStart: 26-86-0930Emvw bld gluc mntr dev cleared fda spec home useDANIEL DIBARDINOStart: 19-35-0222Fqojy of magnesiumDANIEL DIBARDINOStart: 37-59-1150Oabmt of phosphorus inorganicDANIEL DIBARDINOStart: 03-57-1315Syedt metabolic panel calcium totalDANIEL DIBARDINO Start: 87-33-3530Wxawy count complete automatedDANIEL DIBARDINOStart: 07-16-2019 Prothrombin timeDANIEL DIBARDINOStart: 31-63-5985Zhovbgsytqnpwn time partial plasma/whole bloodDANIEL DIBARDINOStart: 90-90-1449Rhjhebp blood reagent strip Caro Dibardino Work Phone: Start: 35-30-3375Ahyripzmxl exam chest single view Vasiliy Sanabria Bethea Work Phone: Start: 69-20-4724EHHMZTQJ BLOOD GAS, POCDaniel Dibardino Work Phone: Start: 06-61-5880Fvty bld gluc mntr dev cleared fda spec home useDaniel Dibardino Work Phone: Start: 17-34-3424Jusuv of magnesiumDaniel Dibardino Work Phone: Start: 35-88-6809Ithkj of phosphorus inorganicDaniel Dibardino Work Phone: Start: 14-32-7222Ypyrl metabolic panel calcium total Caro Dibardino Work Phone: Start: 85-36-2330Axxmo count complete automatedDaniel Dibardino Work Phone: Start: 78-45-8297Aotaribitff timeDaniel Dibardino Work Phone: Start: 57-09-0059Vuaewaicpotyel time partial plasma/whole bloodDaniel Dibardino Work Phone: Start: 46-28-8006UAVGNB AND OUTPUTDANIEL DIBARDINO Start: 65-54-4945IWVJKV INTAKE AND OUTPUTDANIEL DIBARDINOStart: 07-15-2019 Glucose blood reagent stripDANIEL DIBARDINOStart: 87-81-7401Odigcludmrpufu time partial plasma/whole bloodDANIEL DIBARDINOStart: 39-35-4106Aabkqnm blood reagent stripDaniel Dibardino Work Phone: Start: 63-93-9488Fflpodhhj of rectal tubeDANIEL DIBARDINOStart: 61-97-6280Vzdjwdlykjgayu time partial plasma/whole bloodDaniel Dibardino Work Phone: Start: 18-38-5008Bnvsi metabolic panel calcium total CARO DIBARDINOStart: 85-67-3562Bhymi count complete automatedDANIEL DIBARDINO Start: 68-21-0799Rvsqpkb blood reagent stripDANIEL DIBARDINOStart: 07-15-2019 Basic metabolic panel calcium totalDaniel Dibardino Work Phone: Start: 81-34-8567Sfakr count complete automatedDaniel Dibardino Work Phone: Start: 28-38-8108Gnhcrfwyjdqwrg time partial plasma/whole bloodDaniel Dibardino Work Phone: Start: 00-62-1015Qgoehau blood reagent stripDaniel Dibardino Work Phone: Start: 94-32-7376Qykoz of ammoniaDANIEL DIBARDINO Start: 11-84-9589IPYUYTO, BLOOD 1DANIEL DIBARDINOStart: 41-61-2910Mebyg of ammoniaScotty Quinones Work Phone: Start: 07-15-2019 End: 88-75-2152ARZDKTU, BLOOD 1Salil Avasthi Work Phone: Start: 76-92-0119Zrhtw centrifuge enhncd id imfluor stain eaDANIEL DIBARDINOStart: 23-13-3985AEAMZXQOAK DISEASE INTERVENTIONDANIEL DIBARDINOStart: 34-55-2475Gbdbbkq blood reagent stripDANIEL DIBARDINOStart: 43-39-5986JNHTDBPKGL NON-VIOLENT OR NKO-DSQW-VXQQGPINOHKIDJLJD DIBARDINOStart: 83-17-3387Ywhcp centrifuge enhncd id imfluor stain eaSalil Avasthi Work Phone: Start: 87-81-6628OQXSIEJDSN DISEASE INTERVENTIONLuis E Wilkerson Work Phone: Start: 49-48-0117Zvpspqx blood reagent stripDaniel Dibardino Work Phone: Start: 77-80-0272WQDTFGPT OXYGEN THERAPY PROTOCOL CARO DIBARDINOStart: 98-44-4951Bqcdfnq blood reagent stripDANIEL DIBARDINO Start: 84-87-2091Srymvyxxfc exam chest single viewDANIEL DIBARDINOStart: 73-14-4566ICIQRDYU BLOOD GAS, POCDANIEL DIBARDINOStart: 46-91-6126Ulwni of free thyroxineDANIEL DIBARDINOStart: 36-30-2040Gqfzy of magnesiumDANIEL DIBARDINO Start: 95-63-4688Qmuqf of thyroid stimulating hormone tshDANIEL DIBARDINOStart: 55-77-9389Fguka of triiodothyronine t3 freeDANIEL DIBARDINOStart: 07-15-2019 Basic metabolic panel calcium totalDANIEL DIBARDINOStart: 69-90-7058Efwfs count complete automatedDANIEL DIBARDINOStart: 39-47-8740Zitygiyh totalDANIEL DIBARDINOStart: 02-34-5808Vhaasbxsppd timeDANIEL DIBARDINOStart: 07-15-2019 Thromboplastin time partial plasma/whole bloodDANIEL DIBARDINOStart: 07-15-2019 Glucose blood reagent stripDaniel Dibardino Work Phone: Start: 93-46-4465Vhyaijwftp exam chest single view Vasiliy Bethea Work Phone: Start: 38-68-4946NQEFUHXG BLOOD GAS, POCDaniel Dibardino Work Phone: Start: 68-96-6377Ibvyw of free thyroxineScotty Joni Work Phone: Start: 73-38-4958Inkxm of magnesiumDaniel Dibardino Work Phone: Start: 67-35-8396Cswbr of thyroid stimulating hormone tshScotty Joni Work Phone: Start: 44-20-6671Pmipi of triiodothyronine t3 free Omar Joni Work Phone: Start: 05-21-4517Nvcnk metabolic panel calcium total Caro Dibardino Work Phone: Start: 21-11-3205Rixie count complete automatedDaniel Dibardino Work Phone: Start: 65-09-8174Qlvqsztx totalScotty Joni Work Phone: Start: 67-57-3467Gpakpytdotn timeDaniel Dibardino Work Phone: Start: 53-80-4882Pojolqywqgpvex time partial plasma/whole bloodDaniel Dibardino Work Phone: Start: 98-90-9629RKYCPX INTAKE AND OUTPUTDANIEL DIBARDINOStart: 10-36-2772ITBJSW AND OUTPUTDANIEL DIBARDINOStart: 07-14-2019 Glucose blood reagent stripDANIEL DIBARDINOStart: 53-64-3142Ibvwchv blood reagent stripDaniel Dibardino Work Phone: Start: 39-99-4736Xirttcg blood reagent stripDANIEL DIBARDINOStart: 78-70-5605Dahkswx blood reagent stripDaniel Dibardino Work Phone: Start: 02-99-9725Coumqvxrkruoud time partial plasma/whole bloodDANIEL DIBARDINOStart: 39-44-7088Qqgiwyxqkftzrs time partial plasma/whole bloodDaniel Dibardino Work Phone: Start: 53-47-6282Ucvqcch blood reagent stripDANIEL DIBARDINOStart: 06-27-6173DTQPHNIP BLOOD GAS, POCDANIEL DIBARDINOStart: 19-71-5543Wpai bld gluc mntr dev cleared fda spec home useDANIEL DIBARDINOStart: 11-08-5518Irjpe gases any combination ph pco2 po2 co2 qpl3KNCNSK DIBARDINO Start: 23-38-5402Nrgjiem blood reagent stripDaniel Dibardino Work Phone: Start: 68-32-4471QVJIRUEA BLOOD GAS, POCDaniel Dibardino Work Phone: start: 72-15-4510Mnxf bld gluc mntr dev cleared fda spec home useDaniel Dibardino Work Phone: Start: 89-63-6886OSZCLAJE OXYGEN THERAPY PROTOCOL CARO DIBARDINOStart: 47-35-4206Gcb routine ecg w/least 12 lds w/i&rDANIEL DIBARDINOStart: 08-43-3983Ampnhqx blood reagent stripDANIEL DIBARDINOStart: 95-86-7921Nlqajfdypa exam chest single viewDANIEL DIBARDINOStart: 07-14-2019 Thromboplastin time partial plasma/whole bloodDANIEL DIBARDINOStart: 07-14-2019 Glucose blood reagent stripDaniel Dibardino Work Phone: Start: 92-23-3554Ghdka of magnesiumDANIEL DIBARDINO Start: 03-30-0663Gyipo metabolic panel calcium totalDANIEL DIBARDINOStart: 64-72-2114Aoyiv count complete automatedDANIEL DIBARDINOStart: 07-14-2019 Prothrombin timeDANIEL DIBARDINOStart: 23-66-8922VOOMAWHS BLOOD GAS, POCDANIEL DIBARDINOStart: 90-02-4078Fjzllqinqm exam chest single viewNicaudieas A Bethea Work Phone: Start: 71-06-5193Xdtulienuukoze time partial plasma/whole bloodMuhammad Jose Juan Work Phone: Start: 00-13-8237Zjmrn of magnesiumDaniel Dibardino Work Phone: Start: 11-58-7248Wlmjo metabolic panel calcium total Caro Dibardino Work Phone: Start: 15-41-5638Uvhkr count complete automatedDaniel Dibardino Work Phone: Start: 47-75-9581Uicfnzppeen timeDaniel Dibardino Work Phone: Start: 52-78-4491OTDXEEFL BLOOD GAS, POCDaniel Dibardino Work Phone: Start: 86-04-2808Fuo routine ecg w/least 12 lds w/i&r CARO DIBARDINOStart: 64-92-8079DEV REPORTDANIEL DIBARDINOStart: 07-14-2019 INTAKE AND OUTPUTDANIEL DIBARDINOStart: 16-01-0910LFNXUX INTAKE AND OUTPUTDANIEL DIBARDINOStart: 20-03-6911Gbddprndw serum plasma/whole bloodDANIEL DIBARDINO Start: 21-30-7426Bnluazfpkuclmp time partial plasma/whole bloodDANIEL DIBARDINO Start: 25-68-9757Lue routine ecg w/least 12 lds trcg only w/o i&rDaniel Dibardino Work Phone: Start: 21-06-5970HMV REPORTHpf ScanningStart: 56-36-1304Bhcygkmce serum plasma/whole bloodDaniel Dibardino Work Phone: Start: 20-97-6267Vjyslzuwezdykl time partial plasma/whole bloodSinan Marc Work Phone: Start: 56-85-9684Gdxgrrt blood reagent stripDANIEL DIBARDINOStart: 38-69-1296Ampgvmr blood reagent stripDaniel Dibardino Work Phone: Start: 11-33-2234YPGWWOIIMEYCD NURSING CARE ORDER (SPECIFY)CARO DIBARDINOStart: 42-28-7230Lyhsnns blood reagent stripDANIEL DIBARDINOStart: 35-71-4966Itifg metabolic panel calcium totalDANIEL DIBARDINO Start: 30-87-0791Jaqviljyawfzot time partial plasma/whole bloodDANIEL DIBARDINO Start: 79-76-5361Aryxlhf blood reagent stripDaniel Dibardino Work Phone: Start: 49-31-1365Yzle [facility] ctr vad w/subq port age 3 yr/>CARO DIBARDINOStart: 00-16-8557STEBMPJXBDZKH NURSING CARE ORDER (SPECIFY) CARO DIBARDINOStart: 29-73-5613Bvg routine ecg w/least 12 lds w/i&rDANIEL DIBARDINOStart: 25-62-7738XJN REPORTDANIEL DIBARDINOStart: 61-13-4187Uaatg metabolic panel calcium totalMobasser Homer Work Phone: Start: 12-80-3319Uajwciusgtwqgw time partial plasma/whole bloodSinan Marc Work Phone: Start: 49-61-7330MKHXCK PHYSICIAN (SPECIFY)CARO WRAYNOStart: 30-14-5783YSKZBIC COMMUNICATIONDANIEL DIBARDINOStart: 07-13-2019 Glucose blood reagent stripDANIEL DIBARDINOStart: 86-58-0996Ssni [facility] ctr vad w/subq port age 3 yr/>Rupali Longthorne Work Phone: Start: 72-76-8290SVJMANDXUTBQH NURSING CARE ORDER (SPECIFY)Rupali Longthorne Work Phone: Start: 44-05-3184Yne routine ecg w/least 12 lds trcg only w/o i&rMobasser Homer Work Phone: Start: 97-40-9981QVL REPORTHpf ScanningStart: 77-91-9715UPDUVKGBDS NON-VIOLENT OR DTV-GQFT-VNMWBFHPGWLWCEDJP DIBARDINOStart: 86-90-1080Iprufgf blood reagent stripDaniel Dibardino Work Phone: Start: 61-08-5000IKHEQIFE OXYGEN THERAPY PROTOCOL CARO DIBARDINOStart: 37-12-4367Gbjqrxd blood reagent stripDANIEL DIBARDINO Start: 86-98-3295XKTOYWJM BLOOD GAS, POCDANIEL DIBARDINOStart: 07-13-2019 Radiologic exam chest single viewDANIEL DIBARDINOStart: 25-29-4147Ywkfpty blood reagent stripDaniel Dibardino Work Phone: Start: 83-54-2813TBOCUZVU BLOOD GAS, POCDaniel Dibardino Work Phone: Start: 19-49-2920QHJKJ GAP (CALC) POCDANIEL DIBARDINO Start: 78-46-7726KHSRGCFQ BLOOD GAS, POCDANIEL DIBARDINOStart: 22-27-5391Ppxdx count hemoglobinDANIEL DIBARDINOStart: 06-18-3284Hzykype ionizedDANIEL DIBARDINO Start: 39-60-7091Vwkuixcf other sourceDANIEL DIBARDINOStart: 07-13-2019 CREATININE W/GFR POINT OF CAREDANIEL DIBARDINOStart: 87-01-3053Pwvq bld gluc mntr dev cleared fda spec home useDANIEL DIBARDINOStart: 19-88-0140BQRVNF ACID,POINT OF CAREDANIEL DIBARDINOStart: 31-26-7460Jdnpyshqd serum plasma/whole bloodDANIEL DIBARDINOStart: 61-53-3924Usfedd serum plasma or whole bloodDANIEL DIBARDINOStart: 48-66-1306Jyrgp of magnesiumDANIEL DIBARDINOStart: 07-13-2019 Assay of phosphorus inorganicDANIEL DIBARDINOStart: 21-41-2447Vshnu of triiodothyronine t3 freeDANIEL DIBARDINOStart: 69-43-0684Lawrx metabolic panel calcium totalDANIEL DIBARDINOStart: 46-96-7603Ofplo count complete automated CARO DIBARDINOStart: 08-71-7760Snrceyczrgr timeDANIEL DIBARDINOStart: 68-23-5270Coigmoezwvdpqa time partial plasma/whole bloodDANIEL DIBARDINOStart: 02-28-1491Ihjajzqsec exam chest single viewNicholas A Bethea Work Phone: Start: 07-13-2019 End: 13-20-8556CDNAB GAP (CALC) POCDaniel Dibardino Work Phone: Start: 07-13-2019 End: 95-81-2209SZNJMXEM BLOOD GAS, POCDaniel Dibardino Work Phone: Start: 07-13-2019 End: 90-60-3382Xxmjt count hemoglobinDaniel Dibardino Work Phone: Start: 07-13-2019 End: 60-82-5245XHJTVGM, IONIC (POC)Caro Dibardino Work Phone: Start: 07-13-2019 End: 12-05-0866Lkhakfjh [Moles/Vol]Caro Dibardino Work Phone: Start: 07-13-2019 End: 52-17-7753HNGAINLYSL W/GFR POINT OF CAREDaniel Dibardino Work Phone: Start: 07-13-2019 End: 48-77-2119Luyq bld gluc mntr dev cleared fda spec home useDaniel Dibardino Work Phone: Start: 07-13-2019 End: 42-69-3429WXFIZR ACID,POINT OF CAREDaniel Dibardino Work Phone: Start: 07-13-2019 End: 22-72-6715Sqqtwqvmp [Moles/Vol]Caro Dibardino Work Phone: Start: 07-13-2019 End: 30-31-9356Yraaws [Moles/Vol]Caro Dibardino Work Phone: Start: 87-15-0459Hdqmv of magnesiumDaniel Dibardino Work Phone: Start: 74-05-0277Ncjhf of phosphorus inorganicDaniel Dibardino Work Phone: Start: 02-18-0989Luosi of triiodothyronine t3 free Caro Dibardino Work Phone: Start: 87-27-4172Ackua metabolic panel calcium total Caro Dibardino Work Phone: Start: 32-19-2863Basop count complete automatedDaniel Dibardino Work Phone: Start: 59-45-4154Fyngmboducp timeDaniel Dibardino Work Phone: Start: 02-62-3624Fdymwadjsuklnn time partial plasma/whole bloodDaniel Dibardino Work Phone: Start: 82-17-5794XFYFCJ INTAKE AND OUTPUTDANIEL DIBARDINOStart: 65-27-6292QEZKKQ AND OUTPUTDANIEL DIBARDINOStart: 07-12-2019 Glucose blood reagent stripDANIEL DIBARDINOStart: 86-92-8546Jwcxkpeityxkto time partial plasma/whole bloodDANIEL DIBARDINOStart: 17-30-1499Ioiwbdy blood reagent stripDaniel Dibardino Work Phone: Start: 38-52-2590Rfqzpkkvlqbhwx time partial plasma/whole bloodMobasser Homer Work Phone: Start: 79-13-5205SCKNVMTR BLOOD GAS, POCDANIEL DIBARDINOStart: 78-18-9737Bhcoxpra cerebral seizure cable/radio eeg/videoDANIEL DIBARDINOStart: 26-48-3005Qczotejnbn antibodies eachDANIEL DIBARDINOStart: 22-07-9102Cabehve blood reagent stripDANIEL DIBARDINOStart: 03-09-8422PCWLODXN BLOOD GAS, POCDaniel Dibardino Work Phone: Start: 96-19-8692SAK VIDEO MONITORINGMadison Arechiga Work Phone: Start: 92-04-4012Jwnrpvkdom antibodies eachPaul David Work Phone: Start: 20-01-8730HRQSGAPRUCKSG AND ANTI-THYROGLOBULIN ABPaul David Work Phone: Start: 81-29-7392MJNRNTKZ SPECIMENDANIEL DIBARDINO Start: 90-86-8858Mflgwiydwdvxbe time partial plasma/whole bloodDANIEL DIBARDINO Start: 33-37-3708Myowkph blood reagent stripDaniel Dibardino Work Phone: Start: 76-38-4576Bogxi of free thyroxineDANIEL DIBARDINOStart: 79-24-6145Kptml of thyroid stimulating hormone tshDANIEL DIBARDINOStart: 70-27-1483Ljminqnrrqlzip time partial plasma/whole bloodDaniel Dibardino Work Phone: Start: 81-48-3983Sac head w/o contrst materialDANIEL DIBARDINOStart: 52-91-5176Tnj neck w/o contrst materialDANIEL DIBARDINOStart: 00-82-1701Wvj brain brain stem w/o contrast materialDANIEL DIBARDINOStart: 77-40-9416Qqlld of free thyroxineMobasser Homer Work Phone: Start: 85-51-6265Bgphm of thyroid stimulating hormone tshPaul David Work Phone: Start: 50-22-7675LQZKTPTF BLOOD GAS, POCDANIEL DIBARDINOStart: 70-39-4727Moywtvr blood reagent stripDANIEL DIBARDINOStart: 85-09-4394Que head w/o contrst materialMadison Arechiga Work Phone: Start: 93-30-8551Vma neck w/o contrst materialMadison Arechiga Work Phone: Start: 86-04-2765Dcu brain brain stem w/o contrast materialMadison Arechiga Work Phone: Start: 38-15-0584KJDUUDXJ BLOOD GAS, POCDaniel Dibardino Work Phone: Start: 02-41-0691Orfgjke blood reagent stripDaniel Dibardino Work Phone: Start: 27-81-5789PGVOQBBJ OXYGEN THERAPY PROTOCOL CARO WRAYNOStart: 76-68-8616Qrcslbzfxv exam chest single viewDANIEL DIBARDINOStart: 29-60-2807KJCFK GAP (CALC) POCDANIEL DIBARDINOStart: 07-12-2019 ARTERIAL BLOOD GAS, POCDANIEL DIBARDINOStart: 32-93-1214Ykhpe count hemoglobin CARO DIBARDINOStart: 71-12-3442Bpusxnm ionizedDANIEL DIBARDINOStart: 24-74-2964Gnkrycmt other sourceDANIEL DIBARDINOStart: 12-03-4297LOTVXFJNHJ W/GFR POINT OF CAREDANIEL DIBARDINOStart: 67-33-2484Ccid bld gluc mntr dev cleared fda spec home useDANIEL DIBARDINOStart: 44-95-1854USVUIS ACID,POINT OF CARE CARO DIBARDINOStart: 63-07-7299Vtzjqottm serum plasma/whole bloodDANIEL DIBARDINOStart: 97-75-1025Aqensv serum plasma or whole bloodDANIEL DIBARDINO Start: 13-76-3127Gdgky of magnesiumDANIEL DIBARDINOStart: 33-16-9835Vdisa of phosphorus inorganicDANIEL DIBARDINOStart: 14-23-0969Kyvaq metabolic panel calcium totalDANIEL DIBARDINOStart: 32-86-9148Rxxgd count complete automated CARO DIBARDINOStart: 75-10-9401Ckbjuysq totalDANIEL DIBARDINOStart: 07-12-2019 Cyanocobalamin vitamin b-12DANIEL DIBARDINOStart: 76-21-7727Gvpodoiijyf time CARO DIBARDINOStart: 78-98-2399Wufbnxbaproeht time partial plasma/whole blood CARO DIBARDINOStart: 30-44-3712Eaocfltmhf exam chest single viewNicmorrow county hospitalas A Bethea Work Phone: Start: 95-97-7380JFETO GAP (CALC) POCDaniel Dibardino Work Phone: Start: 31-31-1992QQJHUPND BLOOD GAS, POCDaniel Dibardino Work Phone: Start: 63-75-2506Klmxw count hemoglobinDaniel Dibardino Work Phone: Start: 63-85-5667IMQGKXC, IONIC (POC)Caro Dibardino Work Phone: Start: 77-29-2132Btyvugnm [Moles/Vol]Caro Dibardino Work Phone: Start: 82-40-7964OKXQJIMXJI W/GFR POINT OF CAREDaniel Dibardino Work Phone: Start: 86-27-1349Nacn bld gluc mntr dev cleared fda spec home useDaniel Dibardino Work Phone: Start: 09-71-8110YRACQX ACID,POINT OF CAREDaniel Dibardino Work Phone: Start: 23-24-9000Qjqsvkgdo [Moles/Vol]Caro Dibardino Work Phone: Start: 31-88-4731Iqqeav [Moles/Vol]Caro Dibardino Work Phone: Start: 52-62-8180Viees of magnesiumDaniel Dibardino Work Phone: Start: 60-54-1218Mkakm of phosphorus inorganicDaniel Dibardino Work Phone: Start: 39-70-5806Mooil metabolic panel calcium total Caro Dibardino Work Phone: Start: 43-00-4388Asduq count complete automatedDaniel Dibardino Work Phone: Start: 76-64-9687Xzcayxqu totalDaniel Dibardino Work Phone: Start: 44-26-4966GMGHNMR LABORATORY CHARGEDaniel Dibardino Work Phone: Start: 19-20-9800Hijuxcodvep timeDaniel Dibardino Work Phone: Start: 10-92-6492Vamssizgcjbler time partial plasma/whole bloodDaniel Dibardino Work Phone: Start: 87-54-2310DPVGGH INTAKE AND OUTPUTDANIEL DIBARDINOStart: 53-55-5384FAXIQO AND OUTPUTDANIEL DIBARDINOStart: 07-12-2019 Electrolyte panelDANIEL DIBARDINOStart: 56-96-0955Omfnu of magnesiumDANIEL DIBARDINOStart: 33-27-5629Rylprepylpj panelBrian Yosi Zarate Work Phone: Start: 82-06-6662Psvkl of magnesiumEnio Zarate Work Phone: Start: 70-98-3160Kkqkmib blood reagent stripDANIEL DIBARDINOStart: 08-33-5676Isdhdus blood reagent stripDaniel Dibardino Work Phone: Start: 41-31-8000YCZOWSK, BLOOD 1DANIEL DIBARDINO Start: 41-41-4224Jeghl centrifuge enhncd id imfluor stain eaDANIEL DIBARDINO Start: 37-15-5114YBPIG GAP (CALC) POCDANIEL DIBARDINOStart: 67-55-7128UQPVRKXT BLOOD GAS, POCDANIEL DIBARDINOStart: 45-42-2810Znpkp count hemoglobinDANIEL DIBARDINOStart: 27-52-1737Fxpckya ionizedDANIEL DIBARDINOStart: 07-11-2019 Chloride other sourceDANIEL DIBARDINOStart: 20-80-6744RDPQPVGIAT W/GFR POINT OF CAREDANIEL DIBARDINOStart: 88-69-6909Bxsi bld gluc mntr dev cleared fda spec home useDANIEL DIBARDINOStart: 59-41-2841FANAJB ACID,POINT OF CAREDANIEL DIBARDINOStart: 01-41-9457Uakchoxjh serum plasma/whole bloodDANIEL DIBARDINO Start: 11-35-4819Jevqdu serum plasma or whole bloodDANIEL DIBARDINOStart: 07-11-2019 End: 35-55-5122ENQOALF, BLOOD 1Nestrada Bethea Work Phone: Start: 47-58-3599Qyljr centrifuge enhncd id imfluor stain Maxx Wilkerson Work Phone: Start: 95-48-8989HDCYB GAP (CALC) POCDANIEL DIBARDINO Start: 16-16-6361YQZXRIBN BLOOD GAS, POCDANIEL DIBARDINOStart: 82-82-9290Xirohfv ionizedDANIEL DIBARDINOStart: 47-95-3481Onuggdbx other sourceDANIEL DIBARDINO Start: 15-26-2951EUSSZXXKYO W/GFR POINT OF CAREDANIEL DIBARDINOStart: 07-11-2019 LACTIC ACID,POINT OF CAREDANIEL DIBARDINOStart: 48-36-3357Pjlhbfduo serum plasma/whole bloodDANIEL DIBARDINOStart: 54-34-4732Anlzpg serum plasma or whole bloodDANIEL DIBARDINOStart: 73-90-1724QAGZS GAP (CALC) POCDaniel Dibardino Work Phone: Start: 07-08-5710CTXVKAKE BLOOD GAS, POCDaniel Dibardino Work Phone: Start: 88-71-4503Dvoow count hemoglobinDaniel Dibardino Work Phone: Start: 42-84-8849OVSICDO, IONIC (POC)Caro Dibardino Work Phone: Start: 07-99-3890Bpnykesb [Moles/Vol]Caro Dibardino Work Phone: Start: 36-74-7249TKSAQOJFLD W/GFR POINT OF CAREDaniel Dibardino Work Phone: Start: 83-83-5441Vasb bld gluc mntr dev cleared fda spec home useDaniel Dibardino Work Phone: Start: 02-76-3365UGADCF ACID,POINT OF CAREDaniel Dibardino Work Phone: Start: 75-76-1146Onrrmvgct [Moles/Vol]Caro Dibardino Work Phone: Start: 64-77-6620Ozfrwx [Moles/Vol]Caro Dibardino Work Phone: Start: 30-89-3714OOWPW GAP (CALC) POCDANIEL DIBARDINO Start: 88-10-2077PXFADJZO BLOOD GAS, POCDANIEL DIBARDINOStart: 10-36-1638Yzioyxq ionizedDANIEL DIBARDINOStart: 08-39-4969Loptawtq other sourceDANIEL DIBARDINO Start: 48-46-5080MHDEOKBHZJ W/GFR POINT OF CAREDANIEL DIBARDINOStart: 07-11-2019 LACTIC ACID,POINT OF CAREDANIEL DIBARDINOStart: 36-00-5068Mhlrhcyft serum plasma/whole bloodDANIEL DIBARDINOStart: 72-29-6035Jogfkv serum plasma or whole bloodDANIEL DIBARDINOStart: 97-18-4968NDYWQ GAP (CALC) POCDaniel Dibardino Work Phone: Start: 41-15-4352TKNUWUEY BLOOD GAS, POCDaniel Dibardino Work Phone: Start: 91-12-9064Cazit count hemoglobinDaniel Dibardino Work Phone: Start: 74-34-2386FDMENKE, IONIC (POC)Caro Dibardino Work Phone: Start: 22-40-6574Twmbivzc [Moles/Vol]Caro Dibardino Work Phone: Start: 17-67-7014SOZXAZBEOZ W/GFR POINT OF CAREDaniel Dibardino Work Phone: Start: 88-13-6000Awqw bld gluc mntr dev cleared fda spec home useDaniel Dibardino Work Phone: Start: 95-25-3114NCFJDB ACID,POINT OF CAREDaniel Dibardino Work Phone: Start: 37-41-6722Ctyukkrtn [Moles/Vol]Caro Dibardino Work Phone: Start: 24-24-1394Izpkre [Moles/Vol]Caro Dibardino Work Phone: Start: 45-26-6642Nbzkq of magnesiumDANIEL DIBARDINO Start: 96-09-1759Toidl metabolic panel calcium totalDANIEL DIBARDINOStart: 41-01-2841Bpunzklgwmntmo time partial plasma/whole bloodDANIEL DIBARDINOStart: 45-56-9433ZYFKL GAP (CALC) POCDANIEL DIBARDINOStart: 04-11-7625NEMBOOJH BLOOD GAS, POCDANIEL DIBARDINOStart: 78-89-9020Frgrcjm ionizedDANIEL DIBARDINOStart: 96-26-5677Qjhrqnyz other sourceDANIEL DIBARDINOStart: 20-44-9214LCSVGHCVJE W/GFR POINT OF CAREDANIEL DIBARDINOStart: 05-38-9003ISPSZB ACID,POINT OF CAREDANIEL DIBARDINOStart: 11-22-2690Qauyrwlwf serum plasma/whole bloodDANIEL DIBARDINO Start: 14-75-1547Kaqcmb serum plasma or whole bloodDANIEL DIBARDINOStart: 34-01-0897DDXMF GAP (CALC) POCDaniel Dibardino Work Phone: Start: 36-39-4132PKNMBCAY BLOOD GAS, POCDaniel Dibardino Work Phone: Start: 98-79-0421Cmcxw count hemoglobinDaniel Dibardino Work Phone: Start: 31-39-9722AEYLBVO, IONIC (POC)Caro Dibardino Work Phone: Start: 11-06-0882Mnxmioad [Moles/Vol]Caro Dibardino Work Phone: Start: 82-99-7623UMZDIKXBDC W/GFR POINT OF CAREDaniel Dibardino Work Phone: Start: 58-02-2004Cmjt bld gluc mntr dev cleared fda spec home useDaniel Dibardino Work Phone: Start: 20-02-1220RZEXEF ACID,POINT OF CAREDaniel Dibardino Work Phone: Start: 88-78-9179Utqhrvjtv [Moles/Vol]Caro Dibardino Work Phone: Start: 21-44-6306Jjyxae [Moles/Vol]Caro Dibardino Work Phone: Start: 41-04-0890Isugs of magnesiumDaniel Dibardino Work Phone: Start: 63-45-2919Lhnrg metabolic panel calcium total Caro Dibardino Work Phone: Start: 26-51-3853Ijwbqudcyhztfh time partial plasma/whole bloodNicholmeeta Bethea Work Phone: Start: 74-92-2593FYRBH GAP (CALC) POCDaniel Dibardino Work Phone: Start: 08-56-3806VWAWSRDI BLOOD GAS, POCDaniel Dibardino Work Phone: Start: 13-68-2941Kkmcp count hemoglobinDaniel Dibardino Work Phone: Start: 13-76-4699WJXGCEC, IONIC (POC)Caro Dibardino Work Phone: Start: 56-94-3357Uooxwzvv [Moles/Vol]Caro Dibardino Work Phone: Start: 38-77-2173YCVRQQLEIW W/GFR POINT OF CAREDaniel Dibardino Work Phone: Start: 95-78-9533Qnqi bld gluc mntr dev cleared fda spec home useDaniel Dibardino Work Phone: Start: 64-77-3713FFORXM ACID,POINT OF CAREDaniel Dibardino Work Phone: Start: 47-55-3229Agraqytxk [Moles/Vol]Caro Dibardino Work Phone: Start: 89-92-9847Yxombt [Moles/Vol]Caro Dibardino Work Phone: Start: 04-99-8734AP CONSULT TO INFECTIOUS DISEASES CARO LOCKEARDINOStart: 77-24-5125Ipesbmsxbl exam chest single viewDANIEL DIBARDINOStart: 29-48-0243VVYLY GAP (CALC) POCDANIEL DIBARDINOStart: 07-11-2019 ARTERIAL BLOOD GAS, POCDANIEL DIBARDINOStart: 53-35-5108Jeuyd count hemoglobin CARO DIBARDINOStart: 03-53-1845Wkwzpki ionizedDANIEL DIBARDINOStart: 58-88-3292Nktfpaob other sourceDANIEL DIBARDINOStart: 00-38-8619GXYDERYRZO W/GFR POINT OF CAREDANIEL DIBARDINOStart: 55-64-3689Lggi bld gluc mntr dev cleared fda spec home useDANIEL DIBARDINOStart: 91-10-1806NPPTUT ACID,POINT OF CARE CARO DIBARDINOStart: 88-92-3945Wxbsimnhb serum plasma/whole bloodDANIEL DIBARDINOStart: 26-31-2218Yylsad serum plasma or whole bloodDANIEL DIBARDINO Start: 90-58-7776VTSIETZP OXYGEN THERAPY PROTOCOLDANIEL DIBARDINOStart: 15-18-9856Qxhgwppduj exam chest single viewNicmorrow county hospitalmeeta A Bethea Work Phone: Start: 42-40-0556WRVVG GAP (CALC) POCDANIEL DIBARDINO Start: 87-45-1926VNTMOIYS BLOOD GAS, POCDANIEL DIBARDINOStart: 46-50-7942Mmttldk ionizedDANIEL DIBARDINOStart: 94-46-6091Womamnwi other sourceDANIEL DIBARDINO Start: 52-57-6345CSERVUYPDQ W/GFR POINT OF CAREDANIEL DIBARDINOStart: 07-11-2019 LACTIC ACID,POINT OF CAREDANIEL DIBARDINOStart: 27-55-9603GTGWPBLKUOGA PANEL, POCDANIEL DIBARDINOStart: 26-90-8906Yzvhcwegg serum plasma/whole bloodDANIEL DIBARDINOStart: 74-79-5512Ucjtto serum plasma or whole bloodDANIEL DIBARDINO Start: 86-29-0937YDAKL GAP (CALC) POCDaniel Dibardino Work Phone: Start: 71-28-7933OZCWQFUG BLOOD GAS, POCDaniel Dibardino Work Phone: Start: 21-91-2100Rcvnj count hemoglobinDaniel Dibardino Work Phone: Start: 39-43-6054BZRDMXR, IONIC (POC)Caro Dibardino Work Phone: Start: 81-04-5207Ayfcyvjz [Moles/Vol]Caro Dibardino Work Phone: Start: 80-90-3214HASMAVAYVI W/GFR POINT OF CAREDaniel Dibardino Work Phone: Start: 31-81-5273Iwiq bld gluc mntr dev cleared fda spec home useDaniel Dibardino Work Phone: Start: 20-04-5590YHBLSC ACID,POINT OF CAREDaniel Dibardino Work Phone: Start: 68-86-3199Nxoevngwt [Moles/Vol]Caro Dibardino Work Phone: Start: 12-71-0294Mfvalq [Moles/Vol]Caro Dibardino Work Phone: Start: 99-53-8421Ucsddaxnbg exam chest single view Vasiliy Bethea Work Phone: Start: 62-84-8379Oiurekd ionizedDANIEL DIBARDINOStart: 77-70-3540FU CONSULT TO PULMONOLOGYDANIEL DIBARDINOStart: 64-94-4539YCOKY GAP (CALC) POCDANIEL DIBARDINOStart: 41-84-3093RJRFEGBM BLOOD GAS, POCDANIEL DIBARDINOStart: 53-14-7065Ygilwuyv other sourceDANIEL DIBARDINOStart: 07-11-2019 CREATININE W/GFR POINT OF CAREDANIEL DIBARDINOStart: 08-47-5227MSIWQA ACID,POINT OF CAREDANIEL DIBARDINOStart: 59-13-3383BKBKVVWGFXCJ PANEL, POCDANIEL DIBARDINO Start: 44-94-3854Qbgxkruzr serum plasma/whole bloodDANIEL DIBARDINOStart: 24-56-7406Nxbtgo serum plasma or whole bloodDANIEL DIBARDINOStart: 07-11-2019 ANION GAP (CALC) POCDaniel Dibardino Work Phone: Start: 74-51-4232POWRWLUH BLOOD GAS, POCDaniel Dibardino Work Phone: Start: 30-90-8624Ihxfp count hemoglobinDaniel Dibardino Work Phone: Start: 75-21-8481ZCPVXYK, IONIC (POC)Caro Dibardino Work Phone: Start: 53-63-7468Lptmfheu [Moles/Vol]Caro Dibardino Work Phone: start: 02-73-0855RRRQPTHJQF W/GFR POINT OF CAREDaniel Dibardino Work Phone: Start: 51-66-1991Xwwe bld gluc mntr dev cleared fda spec home useDaniel Dibardino Work Phone: Start: 95-30-7905AXIDAD ACID,POINT OF CAREDaniel Dibardino Work Phone: Start: 93-06-1479QPKAZEQHIUYI PANEL, POCDaniel Dibardino Work Phone: Start: 37-81-5852Fqaedmidb [Moles/Vol]Caro Dibardino Work Phone: Start: 33-84-4792Ixmhnf [Moles/Vol]Caro Dibardino Work Phone: Start: 67-33-4403Arnymnjwhb exam chest single view CARO DIBARDINOStart: 86-41-2405Erocvrx ionizedDANIEL DIBARDINOStart: 91-20-3605Wzhlj gases any combination ph pco2 po2 co2 mbc2NYSDGM DIBARDINOStart: 99-76-8971Ofbil of magnesiumDANIEL DIBARDINOStart: 58-97-5616Qgcqv of phosphorus inorganicDANIEL DIBARDINOStart: 31-21-6369Gfymf metabolic panel calcium totalDANIEL DIBARDINOStart: 16-81-3254Wsvnc count complete automated CARO DIBARDINOStart: 30-37-1965Ujjplstafvr timeDANIEL DIBARDINOStart: 02-94-6945Pcktghblsmrwts time partial plasma/whole bloodDANIEL DIBARDINOStart: 07-11-2019 End: 16-47-0190AXPYR GAP (CALC) POCDaniel Dibardino Work Phone: Start: 07-11-2019 End: 90-24-9685KXPLPICO BLOOD GAS, POCDaniel Dibardino Work Phone: Start: 07-11-2019 End: 39-69-9979Rxeqp count hemoglobinDaniel Dibardino Work Phone: Start: 07-11-2019 End: 58-96-0400WNPOUNH, IONIC (POC)Caro Dibardino Work Phone: Start: 07-11-2019 End: 83-72-0373Pgxavtuy [Moles/Vol]Caro Dibardino Work Phone: Start: 07-11-2019 End: 60-53-8579ZOURQNQPFE W/GFR POINT OF CAREDaniel Dibardino Work Phone: Start: 07-11-2019 End: 87-56-1928Uhfz bld gluc mntr dev cleared fda spec home useDaniel Dibardino Work Phone: Start: 07-11-2019 End: 12-41-9829QKVNOF ACID,POINT OF CAREDaniel Dibardino Work Phone: Start: 37-19-0630BJJRJKHRNYEN PANEL, POCDaniel Dibardino Work Phone: Start: 07-11-2019 End: 87-82-4249Xvodzqrle [Moles/Vol]Caro Dibardino Work Phone: Start: 07-11-2019 End: 18-27-3104Mfscui [Moles/Vol]Caro Dibardino Work Phone: Start: 35-48-3032Npshryytem exam chest single view Kuladeep Gidda Work Phone: Start: 28-34-3598Hrhhuek ionizedKuladeep Gidda Work Phone: Start: 33-50-8077Xtzge of magnesiumDaniel Dibardino Work Phone: Start: 28-81-5569Bhllr of phosphorus inorganicDaniel Dibardino Work Phone: Start: 41-00-3733Czorp metabolic panel calcium total Caro Dibardino Work Phone: Start: 51-78-0661Cuqjr count complete automatedDaniel Dibardino Work Phone: Start: 75-23-5477Rrwlkctfxtt timeDaniel Dibardino Work Phone: Start: 83-01-3248Fhmosksmvcfzew time partial plasma/whole bloodVasiliy Bethea Work Phone: Start: 21-61-8187WLZXVA INTAKE AND OUTPUTDANIEL DIBARDINOStart: 81-44-3593OSEJQL AND OUTPUTDANIEL DIBARDINOStart: 07-11-2019 Thromboplastin time partial plasma/whole bloodDANIEL DIBARDINOStart: 07-11-2019 Thromboplastin time partial plasma/whole bloodBertrandholas A Neema Work Phone: Start: 42-70-6738Eob routine ecg w/least 12 lds w/i&r CARO DIBARDINOStart: 00-05-2453OAW REPORTDANIEL DIBARDINOStart: 07-10-2019 Glucose blood reagent stripDANIEL DIBARDINOStart: 48-00-8945Qiz routine ecg w/least 12 lds i&r onlyBharat Luis Work Phone: Start: 47-83-3303QTE REPORTHpf ScanningStart: 12-14-8849Otfzrzh blood reagent stripDaniel Dibardino Work Phone: Start: 34-47-7358Wnlwafhicuizhm time partial plasma/whole bloodDANIEL DIBARDINOStart: 24-30-0874Wtitxjn blood reagent strip CARO DIBARDINOStart: 55-09-8523Uwbaigblorzwix time partial plasma/whole blood Vasiliy Bethea Work Phone: Start: 64-40-0754Sfnetmf blood reagent stripDaniel Dibardino Work Phone: Start: 61-04-6240YYVVRRTU BLOOD GAS, POCDANIEL DIBARDINOStart: 71-30-8804Sogm bld gluc mntr dev cleared fda spec home useDANIEL DIBARDINOStart: 26-58-4941YWJRLT ACID,POINT OF CAREDANIEL DIBARDINOStart: 96-69-0779Pvtmmkkvguuktt time partial plasma/whole bloodDANIEL DIBARDINOStart: 38-82-7077Imiblja blood reagent stripDANIEL DIBARDINOStart: 20-50-2032JW CONSULT TO CRITICAL CAREDANIEL DIBARDINOStart: 84-55-4197IMHNNBFQ BLOOD GAS, POCDaniel Dibardino Work Phone: Start: 79-59-0750Zhvf bld gluc mntr dev cleared fda spec home useDaniel Dibardino Work Phone: Start: 32-39-7662IBJWWX ACID,POINT OF CAREDaniel Dibardino Work Phone: Start: 81-71-7164Uhannxlcktqdfk time partial plasma/whole bloodNicholas A Bethea Work Phone: Start: 45-97-7374Suthgcn blood reagent stripDaniel Dibardino Work Phone: Start: 41-32-8782MN CONSULT TO IV TEAMDANIEL DIBARDINO Start: 55-03-6954XLWOZNWD PATIENTDANIEL DIBARDINOStart: 34-74-4892PQKHPEBK OXYGEN THERAPY PROTOCOLDANIEL DIBARDINOStart: 00-52-0244LMETSTOF BLOOD GAS, POC CARO DIBARDINOStart: 02-73-2295Ybwp bld gluc mntr dev cleared fda spec home useDANIEL DIBARDINOStart: 33-39-1356TLGARU ACID,POINT OF CAREDANIEL DIBARDINO Start: 31-11-1978XPI BLOOD GASDANIEL DIBARDINOStart: 29-98-9151Rcfhres blood reagent stripDANIEL DIBARDINOStart: 49-00-3711NGQ BLOOD GASDANIEL DIBARDINO Start: 16-03-9696YDLGW GAP (CALC) POCDANIEL DIBARDINOStart: 78-09-7936IHILOTBL BLOOD GAS, POCDANIEL DIBARDINOStart: 53-50-4321Obifi count hemoglobinDANIEL DIBARDINOStart: 24-65-5713Iwcuaoy ionizedDANIEL DIBARDINOStart: 07-10-2019 Chloride other sourceDANIEL DIBARDINOStart: 24-88-3047PWHLEKQXSL W/GFR POINT OF CAREDANIEL DIBARDINOStart: 94-44-6299AQVSRF ACID,POINT OF CAREDANIEL DIBARDINO Start: 11-04-0674Xjcftpchm serum plasma/whole bloodDANIEL DIBARDINOStart: 77-24-0979Ilwrtt serum plasma or whole bloodDANIEL DIBARDINOStart: 07-10-2019 ARTERIAL BLOOD GAS, POCDaniel Dibardino Work Phone: Start: 29-08-5849Bqzq bld gluc mntr dev cleared fda spec home useDaniel Dibardino Work Phone: Start: 65-08-0031VYVDDL ACID,POINT OF CAREDaniel Dibardino Work Phone: Start: 43-53-0989Dlkdiwx blood reagent stripDaniel Dibardino Work Phone: Start: 10-47-1683Xnyvitpgol exam chest single view CARO DIBARDINOStart: 37-25-8815Lz head/brain w/o contrast materialDANIEL DIBARDINOStart: 44-84-6146Yfjop of magnesiumDANIEL DIBARDINOStart: 07-10-2019 Assay of phosphorus inorganicDANIEL DIBARDINOStart: 78-23-0305Cltfb metabolic panel calcium totalDANIEL DIBARDINOStart: 01-86-3377Jecab count complete automatedDANIEL DIBARDINOStart: 81-91-1626Pnfmrjqlvcd timeDANIEL DIBARDINOStart: 99-03-7329Tvdfvoimwgvkgi time partial plasma/whole bloodDANIEL DIBARDINOStart: 11-17-7371WBCFK GAP (CALC) POCDANIEL DIBARDINOStart: 85-66-9865PICHBZKW BLOOD GAS, POCDANIEL DIBARDINOStart: 96-06-3757Zyygfbk ionizedDANIEL DIBARDINOStart: 80-37-3027Uieqalhd other sourceDANIEL DIBARDINOStart: 49-46-4388IWMFBAVCBA W/GFR POINT OF CAREDANIEL DIBARDINOStart: 24-73-4268SYKAUG ACID,POINT OF CAREDANIEL DIBARDINOStart: 53-36-7554Bawdcokiz serum plasma/whole bloodDANIEL DIBARDINO Start: 75-98-8543Lhnrsg serum plasma or whole bloodDANIEL DIBARDINOStart: 54-81-6092MOC DRAWDANIEL DIBARDINOStart: 31-49-1062BJJTM GAP (CALC) POCDaniel Dibardino Work Phone: Start: 43-79-3812NYULTQHD BLOOD GAS, POCDaniel Dibardino Work Phone: [phone]: 21-05-5962Prhyr count hemoglobinDaniel Dibardino Work Phone: [phone]: 94-54-7968NUPDIBD, IONIC (POC)Caro Dibardino Work Phone: [phone]: 77-12-6224Utznjprh [Moles/Vol]Caro Dibardino Work Phone: Start: 65-70-2487CPRLNTIYUP W/GFR POINT OF CAREDaniel Dibardino Work Phone: [phone]: 03-25-2685Ymvn bld gluc mntr dev cleared fda spec home useDaniel Dibardino Work Phone: Start: 56-53-5749TOSGTH ACID,POINT OF CAREDaniel Dibardino Work Phone: Start: 42-73-2863Tflipaxxm [Moles/Vol]Caro Dibardino Work Phone: Start: 62-65-0144Cqoiik [Moles/Vol]Caro Dibardino Work Phone: Start: 78-58-8962Kovsozjrfd exam chest single view Brianna L Schelkun Work Phone: Start: 17-02-8135Qy head/brain w/o contrast material Vasiliy Bethea Work Phone: Start: 13-39-6605Rzfll of magnesiumDaniel Dibardino Work Phone: Start: 69-60-1491Iowrm of phosphorus inorganicDaniel Dibardino Work Phone: Start: 45-33-3745Uwyfb metabolic panel calcium total Caro Dibardino Work Phone: Start: 17-38-2650Hbdxa count complete automatedDaniel Dibardino Work Phone: Start: 85-79-6049Iqgtifkizbv timeDaniel Dibardino Work Phone: Start: 13-35-4876Uyiihovsaymygx time partial plasma/whole bloodDaniel Dibardino Work Phone: Start: 31-18-0482VWJGJ GAP (CALC) POCDaniel Dibardino Work Phone: Start: 46-92-8956VLCHBJKB BLOOD GAS, POCDaniel Dibardino Work Phone: Start: 74-71-7677Rknue count hemoglobinDaniel Dibardino Work Phone: Start: 65-40-1277FUJJJPP, IONIC (POC)Caro Dibardino Work Phone: Start: 54-20-0942Mifiifyt [Moles/Vol]Caro Dibardino Work Phone: Start: 46-75-6816FGPLHVGRZF W/GFR POINT OF CAREDaniel Dibardino Work Phone: Start: 50-76-3578Ltrk bld gluc mntr dev cleared fda spec home useDaniel Dibardino Work Phone: Start: 53-68-3555ZYUIEU ACID,POINT OF CAREDaniel Dibardino Work Phone: Start: 96-72-5862Xuhhlwbqm [Moles/Vol]Caro Dibardino Work Phone: Start: 60-25-0576Vghcla [Moles/Vol]Caro Dibardino Work Phone: Start: 39-36-1098QVR DRAWNicholas A Bethea Work Phone: Start: 75-06-4363OXCIBP AND OUTPUTDANIEL DIBARDINO Start: 11-80-6443LIVBFX INTAKE AND OUTPUTDANIEL DIBARDINOStart: 69-88-1385OYQFKS ARTERIAL LINEDANIEL DIBARDINOStart: 64-36-1901Nmocejg blood reagent stripDANIEL DIBARDINOStart: 69-09-7617Njctoaj blood reagent stripDaniel Dibardino Work Phone: Start: 26-07-9512Zadtbibqdsxrqc time partial plasma/whole bloodDANIEL DIBARDINOStart: 27-44-8051Kerxcdo blood reagent strip CARO DIBARDINOStart: 64-13-6680Plq routine ecg w/least 12 lds w/i&rDANIEL DIBARDINOStart: 41-67-9464QAQ REPORTDANIEL DIBARDINOStart: 07-09-2019 Thromboplastin time partial plasma/whole bloodNicholas A Bethea Work Phone: Start: 92-09-9863Lvzmdqs blood reagent stripDaniel Dibardino Work Phone: Start: 09-45-5092Ifr routine ecg w/least 12 lds trcg only w/o i&rMobasser Homer Work Phone: Start: 21-38-1672IFZ REPORTHpf ScanningStart: 07-63-0942SOTUH TUBE REMOVALDANIEL DIBARDINOStart: 50-48-7445Fjbtc metabolic panel calcium totalDANIEL DIBARDINOStart: 31-43-0172Scawo count complete automatedDANIEL DIBARDINOStart: 13-14-7176LIFPTYAM BLOOD GAS, POCDANIEL DIBARDINOStart: 16-01-2745QXTIMZ ACID,POINT OF CAREDANIEL DIBARDINOStart: 87-59-6564Wqkilqegk serum plasma/whole bloodDANIEL DIBARDINOStart: 07-09-2019 Glucose blood reagent stripDANIEL DIBARDINOStart: 14-98-6456Zuhaw metabolic panel calcium totalDaniel Dibardino Work Phone: Start: 64-16-1516Nodzd count complete automatedDaniel Dibardino Work Phone: Start: 41-40-0188VWUYHGRF BLOOD GAS, POCDaniel Dibardino Work Phone: Start: 54-58-8449CNFVTB ACID,POINT OF CAREDaniel Dibardino Work Phone: Start: 59-48-6432Rhhzyvkhh [Moles/Vol]Caro Lockeardino Work Phone: Start: 24-28-4078Przadix blood reagent stripDaniel Dibardino Work Phone: Start: 76-31-0235HJMJQSYE OXYGEN THERAPY PROTOCOL CARO DIBARDINOStart: 74-35-5518Iabvscq blood reagent stripDANIEL DIBARDINO Start: 27-73-7065Jzwoinxfje exam chest single viewDANIEL DIBARDINOStart: 93-41-9422Cehaw of magnesiumDANIEL DIBARDINOStart: 26-64-3776Ckiel of phosphorus inorganicDANIEL DIBARDINOStart: 95-38-7401Rsarr of triglyceridesDANIEL DIBARDINOStart: 35-13-8645Yawfs count complete automatedDANIEL DIBARDINOStart: 37-40-6844Gcjabskrzlbjq metabolic panelDANIEL DIBARDINOStart: 07-09-2019 Prothrombin timeDANIEL DIBARDINOStart: 13-17-1299Hhkmborybbymtc time partial plasma/whole bloodDANIEL DIBARDINOStart: 53-84-2485Jrcdfjn blood reagent strip Caro Dibardino Work Phone: Start: 93-65-3088Pvjjipqznx exam chest single view Brianna L Schetheresaun Work Phone: Start: 97-62-2034Sfvjd of magnesiumDaniel Dibardino Work Phone: Start: 51-02-2201Hctxp of phosphorus inorganicJoseph Early Work Phone: Start: 82-60-2086Gfnpl of triglyceridesJoseph Early Work Phone: Start: 23-14-4469Jmmbw count complete automatedDaniel Dibardino Work Phone: Start: 95-59-2590Corcunccwjqro metabolic panelJoseph Early Work Phone: Start: 29-31-2714Aygxrctetwy timeDaniel Dibardino Work Phone: Start: 29-10-1552Ifthxtyfplfcdh time partial plasma/whole bloodJoseph Early Work Phone: Start: 28-02-4664IDAIQL AND OUTPUTDANIEL DIBARDINO Start: 71-60-0053NJOPIU INTAKE AND OUTPUTDANIEL DIBARDINOStart: 17-30-7245Qquos of ammoniaDANIEL DIBARDINOStart: 99-21-7524Rwnszgh function panelDANIEL DIBARDINOStart: 52-67-2625Lgytcnh blood reagent stripDANIEL DIBARDINOStart: 08-78-1991Buuvx of ammoniaBobbi L Schelkun Work Phone: Start: 23-28-7554Bfayetn function panelBobbi L Schelkun Work Phone: Start: 52-64-5362Bkxmzau blood reagent stripDaniel Dibardino Work Phone: Start: 43-89-4462Feklitz blood reagent stripDANIEL DIBARDINOStart: 44-44-8632Iiljx metabolic panel calcium totalDANIEL DIBARDINO Start: 86-26-2091Efbpjzd blood reagent stripDaniel Dibardino Work Phone: Start: 62-60-4939GTIRMREP BLOOD GAS, POCDANIEL DIBARDINOStart: 59-70-2652Xymj bld gluc mntr dev cleared fda spec home useDANIEL DIBARDINOStart: 98-37-8645Awmlycchb serum plasma/whole bloodDANIEL DIBARDINO Start: 47-71-0468Djhmu metabolic panel calcium totalDaniel Dibardino Work Phone: Start: 70-21-4951ILJJIARB BLOOD GAS, POCDaniel Dibardino Work Phone: Start: 19-93-2606Xjbb bld gluc mntr dev cleared fda spec home useDaniel Dibardino Work Phone: Start: 40-35-3141Rvdpunvrc [Moles/Vol]Caro Dibardino Work Phone: Start: 97-10-6235Snkisju blood reagent stripDANIEL DIBARDINOStart: 86-98-5121Aejibllbwm exam abdomen 1 viewDANIEL DIBARDINOStart: 15-10-5205MS CONSULT TO DIETITIANDANIEL DIBARDINOStart: 51-03-1793AGTZFBZ HOB CARO DIBARDINOStart: 87-83-0492VXFUKY INTAKE AND OUTPUTDANIEL DIBARDINOStart: 55-09-0523Detimys blood reagent stripDaniel Dibardino Work Phone: Start: 60-46-7578WAFUGTIL BLOOD GAS, POCDANIEL DIBARDINOStart: 22-58-6293PQZ DRAWDANIEL DIBARDINOStart: 14-34-6528Pcicvunskh exam abdomen 1 viewJoseph Early Work Phone: Start: 61-79-9545HSQQWPNQ OXYGEN THERAPY PROTOCOL CARO DIBARDINOStart: 23-75-7782Tztxwax blood reagent stripDANIEL DIBARDINO Start: 32-76-1756YKDRLYFT BLOOD GAS, POCDaniel Dibardino Work Phone: Start: 81-71-2507IDX DRAWBobbi L Schelkun Work Phone: Start: 43-76-5157Rw head/brain w/o contrast material CARO DIBARDINOStart: 07-80-5851Glvilxbdqc exam chest single viewDANIEL DIBARDINOStart: 62-29-9842Uvwpozy blood reagent stripDaniel Dibardino Work Phone: Start: 17-57-9222Vx head/brain w/o contrast material Xavier Sreemeeta Henriquez Work Phone: Start: 11-40-6871Zzvvm of magnesiumDANIEL DIBARDINO Start: 84-45-5675Tzgek metabolic panel calcium totalDANIEL DIBARDINOStart: 23-32-9074Ollhl count complete automatedDANIEL DIBARDINOStart: 07-08-2019 Prothrombin timeDANIEL DIBARDINOStart: 64-50-4495Esuwparivm exam chest single viewBobbi L Schelkun Work Phone: Start: 54-63-9347Rxwsw of magnesiumDaniel Dibardino Work Phone: Start: 68-08-7007Jujws metabolic panel calcium total Caro Dibardino Work Phone: Start: 99-57-3377Lovve count complete automatedDaniel Dibardino Work Phone: Start: 18-21-2972Xxbeatxgyxc timeDaniel Dibardino Work Phone: Start: 08-00-8761ORZFMR AND OUTPUTDANIEL DIBARDINO Start: 67-77-8383Ebfahqkzmvgukchvapus w/rec awake&asleepDANIEL DIBARDINOStart: 81-30-7155Xhrfnxg blood reagent stripDANIEL DIBARDINOStart: 85-68-6603UIKFhclpbu Sree Henriquez Work Phone: Start: 51-54-4434Mtcyfxy blood reagent stripDaniel Dibardino Work Phone: Start: 91-45-3704Rloezzlrydxkx metabolic panelDANIEL DIBARDINOStart: 07-55-7596Dnpvege blood reagent stripDANIEL DIBARDINOStart: 93-46-0222VXQPZ GAP (CALC) POCDANIEL DIBARDINOStart: 96-33-6136WPZBNMAP BLOOD GAS, POCDANIEL DIBARDINOStart: 45-38-0106Ssaja count hemoglobinDANIEL DIBARDINO Start: 39-83-6749Rgmryrb ionizedDANIEL DIBARDINOStart: 74-94-6312Yeddwynn other sourceDANIEL DIBARDINOStart: 78-87-4478GYZOSCIXAH W/GFR POINT OF CAREDANIEL DIBARDINOStart: 82-65-0235Wvem bld gluc mntr dev cleared fda spec home useDANIEL DIBARDINOStart: 79-44-2925OWLSPZ ACID,POINT OF CAREDANIEL DIBARDINOStart: 13-40-2514Wombyodje serum plasma/whole bloodDANIEL DIBARDINOStart: 07-07-2019 Sodium serum plasma or whole bloodDANIEL DIBARDINOStart: 90-50-8616LPVSL METABOLIC PANEL W/ REFLEX TO MG FOR LOW KDaniel Dibardino Work Phone: Start: 61-79-2727Wtxfdzt blood reagent stripDaniel Dibardino Work Phone: start: 10-40-6455RATTPCYGUMRTZVIN DIBARDINOStart: 96-90-9045EPBGA GAP (CALC) POCDaniel Dibardino Work Phone: Start: 00-49-3565YMPVSXJN BLOOD GAS, POCDaniel Dibardino Work Phone: Start: 13-53-0254Ziplw count hemoglobinDaniel Dibardino Work Phone: Start: 72-24-7204TAEHFQP, IONIC (POC)Caro Dibardino Work Phone: Start: 33-28-9730Iljmqzud [Moles/Vol]Caro Dibardino Work Phone: Start: 29-29-1450XPLDSXUJPZ W/GFR POINT OF CAREDaniel Dibardino Work Phone: Start: 83-97-3154Dvrf bld gluc mntr dev cleared fda spec home useDaniel Dibardino Work Phone: Start: 97-46-7851IJHHBE ACID,POINT OF CAREDaniel Dibardino Work Phone: Start: 72-52-1540Yfqzrdxjs [Moles/Vol]Caro Dibardino Work Phone: Start: 84-94-9044Ovygsx [Moles/Vol]Caro Dibardino Work Phone: Start: 54-34-8640Tql routine ecg w/least 12 lds w/i&r CARO DIBARDINOStart: 67-07-5920QCZ REPORTDANIEL DIBARDINOStart: 07-07-2019 ARTERIAL BLOOD GAS, POCDANIEL DIBARDINOStart: 49-20-3811Ohngquinu serum plasma/whole bloodDANIEL DIBARDINOStart: 73-05-2505MZEGVEFAOMFjkxt L Schelkun Work Phone: Start: 57-29-6399MB CONSULT TO NEUROLOGYDANIEL DIBARDINOStart: 85-96-8406Qhi routine ecg w/least 12 lds i&r onlyDaniel Dibardino Work Phone: Start: 50-58-5938AAU REPORTHpf ScanningStart: 49-77-1104Njqbict blood reagent stripDANIEL DIBARDINOStart: 87-41-9276UPCCIBWL PATIENTDANIEL DIBARDINOStart: 85-39-1237ZSPVFTDB BLOOD GAS, POCDaniel Dibardino Work Phone: Start: 94-00-9484Ehdropoye [Moles/Vol]Caro Dibardino Work Phone: Start: 02-18-7557GPDIPZSN PATIENTDANIEL DIBARDINO Start: 96-91-2281Pmnwfkp blood reagent stripDaniel Dibardino Work Phone: Start: 05-19-5703Caz routine ecg w/least 12 lds w/i&r CARO DIBARDINOStart: 09-98-2590BJN REPORTDANIEL DIBARDINOStart: 07-07-2019 ARTERIAL BLOOD GAS, POCDANIEL DIBARDINOStart: 03-89-7184Rtnjiet ionizedDANIEL DIBARDINOStart: 79-07-5164Vgqx bld gluc mntr dev cleared fda spec home useDANIEL DIBARDINOStart: 82-17-5630Edvtokjjl serum plasma/whole bloodDANIEL DIBARDINO Start: 52-14-1011IAUGUEZZ OXYGEN THERAPY PROTOCOLDANIEL DIBARDINOStart: 76-15-0723Skyy transthorc r-t 2d w/wo m-mode rec f-up/lmtdDANIEL DIBARDINOStart: 37-24-0547Ypg routine ecg w/least 12 lds i&r onlyDaniel Dibardino Work Phone: Start: 09-23-8224PPC REPORTHpf ScanningStart: 70-83-6204LLGXLNTZ BLOOD GAS, POCDaniel Dibardino Work Phone: Start: 96-63-4550XETYKYG, IONIC (POC)Caro Dibardino Work Phone: Start: 95-37-3034Dwxd bld gluc mntr dev cleared fda spec home useDaniel Dibardino Work Phone: Start: 28-57-2399Juufczpwv [Moles/Vol]Caro Dibardino Work Phone: Start: 75-02-4366Xhjaphk blood reagent stripDANIEL DIBARDINOStart: 85-94-9869GCXGJZRJOHLKPK LIMITEDRaza Dakota Work Phone: Start: 84-15-8866Htpeecoemi exam chest single view CARO DIBARDINOStart: 39-56-0140Poyqcvp blood reagent stripDaniel Dibardino Work Phone: Start: 02-39-1243TCYYVEFF BLOOD GAS, POCDANIEL DIBARDINOStart: 86-68-2160Fflsrthaoe exam chest single viewNicaugilar Bethea Work Phone: Start: 64-44-3211Zxp routine ecg w/least 12 lds w/i&r CARO DIBARDINOStart: 06-43-2541ZIN REPORTDANIEL DIBARDINOStart: 07-07-2019 Assay of magnesiumDANIEL DIBARDINOStart: 08-52-6134Kvaky metabolic panel calcium totalDANIEL DIBARDINOStart: 74-39-1094Zwqra count complete automatedDANIEL DIBARDINOStart: 24-13-3294Gwnf screen quantitative vancomycinDANIEL DIBARDINO Start: 40-35-7143Ithmncsiuay timeDANIEL DIBARDINOStart: 08-09-0036SKG DRAWDANIEL DIBARDINOStart: 31-28-0764LLINFIKH BLOOD GAS, POCDANIEL DIBARDINOStart: 88-38-7674Nuuk bld gluc mntr dev cleared fda spec home useDANIEL DIBARDINOStart: 66-61-0726GUMZBXQX BLOOD GAS, POCDaniel Dibardino Work Phone: Start: 77-55-3418Jtj routine ecg w/least 12 lds trcg only w/o i&rDaniel Dibardino Work Phone: Start: 98-83-7281VGA REPORTHpf ScanningStart: 08-43-6561Aybzb of magnesiumDaniel Dibardino Work Phone: Start: 73-69-6148Koiow metabolic panel calcium total Caro Lockeardino Work Phone: Start: 81-68-0221Gzmgu count complete automatedDaniel Dibardino Work Phone: Start: 92-83-8433Ayqs screen quantitative vancomycin Caro Lockeardino Work Phone: Start: 48-07-1223Ibbwvztksro timeDaniel Dibardino Work Phone: Start: 07-07-2019 End: 00-43-2089HOZ DRAWBobbi L Schetheresaun Work Phone: Start: 74-07-7154XORXAGWZ BLOOD GAS, POCDaniel Dibardino Work Phone: Start: 17-75-8784Duvv bld gluc mntr dev cleared fda spec home useDaniel Dibardino Work Phone: Start: 22-10-7745LZFBLX AND OUTPUTDANIEL DIBARDINO Start: 32-92-3293UEPYBRH HEELS OFF OF BEDDANIEL DIBARDINOStart: 38-15-3581HTXU OF BED 60 DEGREES OR LESSDANIEL DIBARDINOStart: 65-26-2645MXHAWLU COMMUNICATION CARO WRAYNOStart: 50-42-1470JYFM PATIENTDANIEL DIBARDINOStart: 07-06-2019 RESTRAINTS NON-VIOLENT OR ZEX-AANQ-VQMGVFXMALEZFFYYW DIBARDINOStart: 07-06-2019 Glucose blood reagent stripDANIEL DIBARDINOStart: 51-22-8351XIV BLOOD GASDANIEL DIBARDINOStart: 67-09-7362Np head/brain w/o contrast materialDANIEL DIBARDINO Start: 10-81-8176Zntdqki blood reagent stripDaniel Dibardino Work Phone: Start: 64-56-8342YWZMMMYF BLOOD GAS, POCDANIEL DIBARDINOStart: 33-34-3553Jnhc bld gluc mntr dev cleared fda spec home useDANIEL DIBARDINOStart: 40-72-6075Lye routine ecg w/least 12 lds w/i&rDANIEL DIBARDINO Start: 33-66-4727CJU REPORTDANIEL DIBARDINOStart: 87-89-7380Tr head/brain w/o contrast materialNicholas A Bethea Work Phone: Start: 43-03-5488Unbbi metabolic panel calcium total CARO DIBARDINOStart: 48-13-6798MXVBODST BLOOD GAS, POCDaniel Dibardino Work Phone: Start: 57-70-1683Xwpg bld gluc mntr dev cleared fda spec home useDaniel Dibardino Work Phone: Start: 33-98-1202Knp routine ecg w/least 12 lds trcg only w/o i&rMobasser Homer Work Phone: Start: 62-45-0502IFR REPORTHpf ScanningStart: 13-31-6362Iwviz metabolic panel calcium totalNicholas A Bethea Work Phone: Start: 97-34-6010Adhj bld gluc mntr dev cleared fda spec home useDANIEL DIBARDINOStart: 17-40-0776QXGPXOHI BLOOD GAS, POCDANIEL DIBARDINOStart: 94-92-5524Wyfx bld gluc mntr dev cleared fda spec home useDaniel Dibardino Work Phone: Start: 17-49-8848KGUFVMCZ BLOOD GAS, POCDANIEL DIBARDINOStart: 07-06-2019 End: 36-38-2543UNDNIVET BLOOD GAS, POCDaniel Dibardino Work Phone: Start: 89-38-8227Obu routine ecg w/least 12 lds w/i&r CARO DIBARDINOStart: 29-68-3488DBE REPORTDANIEL DIBARDINOStart: 19-89-1381YTU BLOOD GASDANIEL DIBARDINOStart: 36-12-0780RXBWZKUX OXYGEN THERAPY PROTOCOLDANIEL DIBARDINOStart: 07-06-2019 End: 68-60-6732OQWMMGXH BLOOD GAS, POCDaniel Dibardino Work Phone: Start: 43-25-6200Hdcn bld gluc mntr dev cleared fda spec home useDaniel Dibardino Work Phone: Start: 43-39-3854Qwr routine ecg w/least 12 lds w/i&r CARO DIBARDINOStart: 79-32-2152Fwu routine ecg w/least 12 lds i&r onlyDaniel Dibardino Work Phone: Start: 83-46-4501UCF REPORTHpf ScanningStart: 43-00-1718Gmzyiuiofy exam chest single viewDANIEL DIBARDINOStart: 15-74-6455Sss routine ecg w/least 12 lds i&r onlyMobasser Homer Work Phone: Start: 65-55-7523PMZ REPORTHpf ScanningStart: 83-04-9540Wblkb of magnesiumDANIEL DIBARDINOStart: 86-59-9295Hhpon metabolic panel calcium totalDANIEL DIBARDINOStart: 97-11-0517Wyqtc count complete automatedDANIEL DIBARDINOStart: 04-75-1501Ugbh screen quantitative vancomycin CARO DIBARDINOStart: 30-59-7285Lyxvyng function panelDANIEL DIBARDINOStart: 31-73-0242Biaeumznekg timeDANIEL DIBARDINOStart: 35-06-7815TVKBYXSX BLOOD GAS, POCDANIEL DIBARDINOStart: 96-20-1389Zbqygzubsp exam chest single viewJoseph Early Work Phone: Start: 50-79-6871Agcrl of magnesiumDaniel Dibardino Work Phone: Start: 49-87-5820Dcfis metabolic panel calcium total Caro Dibardino Work Phone: Start: 02-33-7430Ptutu count complete automatedDaniel Dibardino Work Phone: Start: 72-46-5237Yunf screen quantitative vancomycin Ashley Cesar Work Phone: Start: 21-01-6089Jfoaulq function panelDaniel Dibardino Work Phone: Start: 16-51-2622Affyferrjut timeDaniel Dibardino Work Phone: Start: 32-68-0350HGZCBRTU BLOOD GAS, POCDaniel Dibardino Work Phone: Start: 21-82-5668CBGLDO AND OUTPUTDANIEL DIBARDINO Start: 52-06-9633Yn retroperitoneal real time w/image completeDANIEL DIBARDINO Start: 99-31-5499Hxlidbw blood reagent stripDANIEL DIBARDINOStart: 59-75-1370Fi retroperitoneal real time w/image completeDivya Cesar Work Phone: Start: 75-23-8240Rlovfqt blood reagent stripDaniel Dibardino Work Phone: Start: 49-06-5465MCDXPINXPD NON-VIOLENT OR HJG-HQAN-FFRJYLIUXUMXHQQLX DIBARDINOStart: 68-38-0102Kuhcc metabolic panel calcium totalDANIEL DIBARDINOStart: 56-93-7500Utyorfx blood reagent stripDANIEL DIBARDINOStart: 51-15-4804Kqwzm metabolic panel calcium totalNishant Hai Work Phone: Start: 44-22-9879Dgzqbvx blood reagent stripDaniel Dibardino Work Phone: Start: 46-72-3057Bbypd of urine sodiumDANIEL DIBARDINO Start: 05-69-8952Dizgptfy urineDANIEL DIBARDINOStart: 10-20-7640Afzdilsduw other sourceDANIEL DIBARDINOStart: 22-85-5993Rehkxaunk urineDANIEL DIBARDINOStart: 39-20-7802Nwryuln electrop fxj&mynor oth flus concentratiDANIEL DIBARDINOStart: 16-88-2269Odpwr dip stick/tablet reagent auto microscopyDANIEL DIBARDINOStart: 57-94-7007Zqemxykaxwx antibodies anaDANIEL DIBARDINOStart: 30-54-2725Qpfvfpshrd antigen each componentDANIEL DIBARDINOStart: 16-25-7187Mmfhccmuez electrophoresis serumDANIEL DIBARDINOStart: 67-81-3531Shnqijq electrophoretic fractj&quantj serumDANIEL DIBARDINOStart: 82-19-6418Fevlu hepatitis panelDANIEL DIBARDINOStart: 52-06-4295Yoyhy of ammoniaDANIEL DIBARDINOStart: 91-31-1707PR GAS,MIX-RUFINO,EXTDaniel Dibardino Work Phone: Start: 38-52-1111Pscnogx blood reagent stripDANIEL DIBARDINOStart: 92-08-7093KI CONSULT TO NEPHROLOGYDANI DIBARDINOStart: 50-55-1182Tsv routine ecg w/least 12 lds w/i&rDANIEL DIBARDINOStart: 07-05-2019 EKG REPORTDANIEL DIBARDINOStart: 30-78-3447Xkxjm of urine sodiumDivya Cesar Work Phone: Start: 14-18-3069Rbwmjlvd urineDivya Cesar Work Phone: Start: 80-84-7147Dkzvoiakto other sourceDivya Cesar Work Phone: Start: 24-03-4803Crphhjjqj urineDivya Cesar Work Phone: Start: 25-11-0975Jdjayar electrop fxj&mynor oth flus concentratiDivya Cesar Work Phone: Start: 30-88-0453Cgmkf dip stick/tablet reagent auto microscopyDivya Cesar Work Phone: Start: 43-00-8651Beakmyqdsea antibodies anaDivya Cesar Work Phone: Start: 49-24-7632Hqhodzzklt antigen each component Ashley Cesar Work Phone: Start: 12-37-3175BDTWLWT LABORATORY CHARGEDivya Cesar Work Phone: Start: 28-49-2859Emmuefs electrophoretic fractj&quantj serumDivya Cesar Work Phone: Start: 20-53-3024Llxot hepatitis panelDivya Cesar Work Phone: Start: 61-11-9041Ymyty of ammoniaJoseph Early Work Phone: Start: 64-41-0225Sxsejkr blood reagent stripDaniel Dibardino Work Phone: Start: 07-08-2170Oyo routine ecg w/least 12 lds i&r onlyNuha Coronel Work Phone: Start: 64-97-9162FEW REPORTHpf ScanningStart: 72-82-8686AJCKOTAI OXYGEN THERAPY PROTOCOLDANIEL DIBARDINOStart: 59-90-1643KQ CONSULT TO NEPHROLOGYDANIEL DIBARDINOStart: 93-68-6534Wtjnnxu blood reagent stripDANIEL DIBARDINOStart: 95-92-0589NSNYF GAP (CALC) POCDANIEL DIBARDINOStart: 90-84-3552REAWALZN BLOOD GAS, POCDANIEL DIBARDINOStart: 64-11-2767Xibua count hemoglobinDANIEL DIBARDINOStart: 45-77-4224Ymvvbkl ionizedDANIEL DIBARDINOStart: 14-79-2523Ctagusgb other sourceDANIEL DIBARDINOStart: 68-80-4395XUUCRPGGTB W/GFR POINT OF CAREDANIEL DIBARDINOStart: 89-94-1751Muzd bld gluc mntr dev cleared fda spec home useDANIEL DIBARDINOStart: 84-39-7632AFJJNY ACID,POINT OF CAREDANIEL DIBARDINOStart: 84-08-5957Gtyxcy serum plasma or whole bloodDANIEL DIBARDINOStart: 97-85-9918Hxrbrgyvjh exam chest single viewDANIEL DIBARDINO Start: 98-03-0198Gnvyt of magnesiumDANIEL DIBARDINOStart: 89-71-7594Wzbsp metabolic panel calcium totalDANIEL DIBARDINOStart: 61-12-7779Rmbrk count complete automatedDANIEL DIBARDINOStart: 81-77-9946Kjttcsfugss timeDANIEL DIBARDINOStart: 24-86-9454TDGLG GAP (CALC) POCDANIEL DIBARDINOStart: 07-05-2019 ARTERIAL BLOOD GAS, POCDANIEL DIBARDINOStart: 67-62-0154Ozrmgrr ionizedDANIEL DIBARDINOStart: 80-07-5215Jmpzbwde other sourceDANIEL DIBARDINOStart: 07-05-2019 CREATININE W/GFR POINT OF CAREDANIEL DIBARDINOStart: 33-03-8424CDSBDT ACID,POINT OF CAREDANIEL DIBARDINOStart: 29-84-9255Cgawwnxtf serum plasma/whole blood CARO DIBARDINOStart: 02-31-6546Rrhfno serum plasma or whole bloodDANIEL DIBARDINOStart: 81-28-2587Vnhrgyv blood reagent stripDaniel Dibardino Work Phone: Start: 77-48-4252RPJHB GAP (CALC) POCDaniel Dibardino Work Phone: Start: 88-67-5833AJXWOENJ BLOOD GAS, POCDaniel Dibardino Work Phone: Start: 66-13-6698Uxzjw count hemoglobinDaniel Dibardino Work Phone: Start: 10-93-9392GVKVJPK, IONIC (POC)Caro Dibardino Work Phone: Start: 84-74-9124Nockrhuv [Moles/Vol]Caro Dibardino Work Phone: Start: 45-91-8843NTRMIIPZXR W/GFR POINT OF CAREDaniel Dibardino Work Phone: Start: 04-33-1107Xpiw bld gluc mntr dev cleared fda spec home useDaniel Dibardino Work Phone: Start: 07-56-5827SANIXP ACID,POINT OF CAREDaniel Dibardino Work Phone: Start: 22-40-3184Ovyqxwzlp [Moles/Vol]Caro Dibardino Work Phone: Start: 62-74-6851Egfaon [Moles/Vol]Caro Dibardino Work Phone: Start: 64-07-4180Mtajqbvals exam chest single view Shant Early Work Phone: Start: 85-82-3802Uyzvu of magnesiumDaniel Dibardino Work Phone: Start: 09-40-6993Mbiah metabolic panel calcium total Caro Dibardino Work Phone: Start: 99-11-7791Ipftu count complete automatedDaniel Dibardino Work Phone: Start: 70-46-3709Qeilmcmzjtx timeDaniel Dibardino Work Phone: Start: 22-10-8875GFRIV GAP (CALC) POCDaniel Dibardino Work Phone: Start: 82-37-2679KIOZTRYB BLOOD GAS, POCDaniel Dibardino Work Phone: Start: 35-20-9890Eonuk count hemoglobinDaniel Dibardino Work Phone: Start: 32-83-8004TJVXLYO, IONIC (POC)Caro Dibardino Work Phone: Start: 91-33-2753Gbutjbdz [Moles/Vol]Caro Dibardino Work Phone: Start: 96-60-1782QOVUQKIFJG W/GFR POINT OF CAREDaniel Dibardino Work Phone: Start: 54-20-7701Rdav bld gluc mntr dev cleared fda spec home useDaniel Dibardino Work Phone: Start: 09-94-6029BXIRXB ACID,POINT OF CAREDaniel Dibardino Work Phone: Start: 55-79-1804Owhpnzrmg [Moles/Vol]Caro Dibardino Work Phone: Start: 90-98-3983Rxcdlq [Moles/Vol]Caro Dibardino Work Phone: Start: 90-17-1447Mdpae gases any combination ph pco2 po2 co2 hcw2PMYAMM DIBARDINOStart: 67-92-3119QIRDEZ AND OUTPUTDANIEL DIBARDINO Start: 22-52-9276DEXLFAU MAY SHOWERDANIEL DIBARDINOStart: 28-42-9412Daokdwp blood reagent stripDANIEL DIBARDINOStart: 15-24-5732SBTGTSRZ PATIENTDANIEL DIBARDINOStart: 06-87-5705Pwgzeba blood reagent stripDaniel Dibardino Work Phone: Start: 07-04-2019 End: 85-17-2030Bowjocxqh serum plasma/whole bloodDaniel Dibardino Work Phone: Start: 94-63-5501Bzjpi of magnesiumDANIEL DIBARDINO Start: 48-65-4835Hhcmzvw blood reagent stripDaniel Dibardino Work Phone: [phone]: 74-84-6066Vojlz of magnesiumDaniel Dibardino Work Phone: [phone]: 00-93-3889Dcptare blood reagent stripDaniel Dibardino Work Phone: Start: 41-32-5673ZNYIDBBSXY NON-VIOLENT OR WVQ-OLNK-MWLOMATJYDFPYEKRK DIBARDINOStart: 90-89-8464Ziypvkg blood reagent strip Caro Dibardino Work Phone: Start: 16-39-8038Smsaxgsn alejandro-hughes eb virus nuclear ag ebnaDANIEL DIBARDINOStart: 90-06-8805Upkor of lactateDANIEL DIBARDINO Start: 73-28-5700Pcrtm of magnesiumDANIEL DIBARDINOStart: 81-98-7844Tmtla metabolic panel calcium totalDANIEL DIBARDINOStart: 03-68-5144Rwhgswt ionized CARO DIBARDINOStart: 54-91-6836JBLLZTXFQB AND HEMATOCRIT, BLOODDANIEL DIBARDINOStart: 60-25-5879Xishjrn blood reagent stripDANIEL DIBARDINOStart: 45-42-3836Fomtg of lactateDaniel Dibardino Work Phone: [phone]: 14-64-1054Yxsez of magnesiumDaniel Dibardino Work Phone: Start: 78-54-2455Srmks metabolic panel calcium total Caro Dibardino Work Phone: Start: 04-44-6965Tyntt count hemoglobinDaniel Dibardino Work Phone: Start: 46-25-9592Rcbrieg ionizedDaniel Dibardino Work Phone: Start: 27-83-8406VMTT HEART COAGDaniel Dibardino Work Phone: Start: 59-93-1971Stpckov blood reagent stripDaniel Dibardino Work Phone: Start: 30-53-9551Shaycyb blood reagent stripDaniel Dibardino Work Phone: Start: 85-02-4375Uxkimdysrg exam chest single view CARO DIBARDINOStart: 94-66-9545Qmlriavb alejandro-hughes eb virus nuclear ag ebna CARO DIBARDINOStart: 32-63-6058Orfqv of lactateDANIEL DIBARDINOStart: 94-13-4967Gzfvp of magnesiumDANIEL DIBARDINOStart: 60-12-3672Tzbnx metabolic panel calcium totalDANIEL DIBARDINOStart: 01-46-9990Zbxld count complete automatedDANIEL DIBARDINOStart: 92-84-6913JGWOY GAP (CALC) POCDANIEL DIBARDINO Start: 90-52-7245EKJZIYYD BLOOD GAS, POCDANIEL DIBARDINOStart: 04-33-3873Hjvum count hemoglobinDANIEL DIBARDINOStart: 55-17-2478Hkscrue ionizedDANIEL DIBARDINO Start: 65-60-6111Osqtrmbu other sourceDANIEL DIBARDINOStart: 07-04-2019 CREATININE W/GFR POINT OF CAREDANIEL DIBARDINOStart: 04-62-7731Tfnh bld gluc mntr dev cleared fda spec home useDANIEL DIBARDINOStart: 32-36-9222XZETSJ ACID,POINT OF CAREDANIEL DIBARDINOStart: 29-86-7749Ksrbsh serum plasma or whole bloodDANIEL DIBARDINOStart: 14-80-9024ADUXZISL PATIENTDANIEL DIBARDINOStart: 06-49-0894Pcjaollgms exam chest single viewDaniel Dibardino Work Phone: Start: 21-77-1762UPXONCVX OXYGEN THERAPY PROTOCOL CARO DIBARDINOStart: 81-52-7114Ehlgm of lactateDaniel Dibardino Work Phone: Start: 39-67-7737Bykkk of magnesiumDaniel Dibardino Work Phone: Start: 09-09-9453Tpulz metabolic panel calcium total Caro Dibardino Work Phone: [phone]: 14-03-3321Bvzal count complete automatedDaniel Dibardino Work Phone: [phone]: 33-04-5990Llsgqdo ionizedDaniel Dibardino Work Phone: [phone]: 07-74-8384MRVO HEART COAGDaniel Dibardino Work Phone: [phone]: 41-77-8156KFRRN GAP (CALC) POCDaniel Dibardino Work Phone: [phone]: 28-83-9983NZPIIRWD BLOOD GAS, POCDaniel Dibardino Work Phone: [phone]: 88-30-1002Ixmwv count hemoglobinDaniel Dibardino Work Phone: [phone]: 36-91-5886WSKUAIT, IONIC (POC)Caro Dibardino Work Phone: Start: 20-05-8101Rinmydol [Moles/Vol]Caro Dibardino Work Phone: Start: 59-96-9287TJUYHMNFAA W/GFR POINT OF CAREDaniel Dibardino Work Phone: Start: 12-91-7109Pinc bld gluc mntr dev cleared fda spec home useDaniel Dibardino Work Phone: [phone]: 45-99-3766VJPSVI ACID,POINT OF CAREDaniel Dibardino Work Phone: Start: 36-27-4931Voyoevysm [Moles/Vol]Caro Dibardino Work Phone: Start: 01-68-6200Ctftud [Moles/Vol]Caro Dibardino Work Phone: Start: 00-08-5289Ilzkgchqeqr blood/blood components CARO DIBARDINOStart: 95-51-8637XRZLAVSBB PLATELETSDANIEL DIBARDINOStart: 04-99-0419Rkyuumbfwi exam chest single viewDANIEL DIBARDINOStart: 07-04-2019 Transfusion blood/blood componentsDANIEL DIBARDINOStart: 70-02-2946Joridpa blood reagent stripDANIEL DIBARDINOStart: 07-04-2019 End: 42-07-5507Ftaclxibe closure surg wound/dehsn extsv/complicDaniel Dibardino Work Phone: Start: 45-22-6517Wcgub of magnesiumDANIEL DIBARDINO Start: 00-80-7235Zrqkc metabolic panel calcium totalDANIEL DIBARDINOStart: 17-55-6398Lston count complete automatedDANIEL DIBARDINOStart: 07-04-2019 Prothrombin timeDANIEL DIBARDINOStart: 13-37-5625HOSLUOYXO PLATELETSDaniel Dibardino Work Phone: Start: 16-24-8857LOATK GAP (CALC) POCDANIEL DIBARDINO Start: 08-26-2704TRAEIRUF BLOOD GAS, POCDANIEL DIBARDINOStart: 70-00-4343Nskfp count hemoglobinDANIEL DIBARDINOStart: 78-46-7078Tllkehb ionizedDANIEL DIBARDINO Start: 12-89-2021Hdgwsywk other sourceDANIEL DIBARDINOStart: 07-04-2019 CREATININE W/GFR POINT OF CAREDANIEL DIBARDINOStart: 16-46-4561Nckp bld gluc mntr dev cleared fda spec home useDANIEL DIBARDINOStart: 00-35-5959RKYOMK ACID,POINT OF CAREDANIEL DIBARDINOStart: 36-44-4209Ayebmf serum plasma or whole bloodDANIEL DIBARDINOStart: 47-98-9197Xjqzpabvsk exam chest single viewDaniel Dibardino Work Phone: Start: 31-38-7976OQAOZSCRI FRESH FROZEN PLASMADANIEL DIBARDINOStart: 44-00-6456WRDABWU PLATELETSDaniel Dibardino Work Phone: Start: 19-10-1703Dncvray blood reagent stripDaniel Dibardino Work Phone: Start: 07-04-2019 End: 40-77-1063Vetkt of magnesiumDaniel Dibardino Work Phone: Start: 62-71-2113Lcncm metabolic panel calcium total Caro Dibardino Work Phone: [phone]: 86-38-8630Qkfmu count complete automatedDaniel Dibardino Work Phone: [phone]: 55-81-2679Fihbqwkwdba timeDaniel Dibardino Work Phone: [phone]: 39-72-7307TZZWX GAP (CALC) POCDaniel Dibardino Work Phone: [phone]: 35-88-7702GAEXHHNC BLOOD GAS, POCDaniel Dibardino Work Phone: [phone]: 10-15-7981Aldbx count hemoglobinDaniel Dibardino Work Phone: [phone]: 76-29-8960CVQFIRO, IONIC (POC)Caro Dibardino Work Phone: [phone]: 54-62-1999Xpzalzfc [Moles/Vol]Caro Dibardino Work Phone: [phone]: 32-43-2758HGEWNOZWUV W/GFR POINT OF CAREDaniel Dibardino Work Phone: Start: 59-71-3228Mere bld gluc mntr dev cleared fda spec home useDaniel Dibardino Work Phone: Start: 93-92-4088Ksravun blood reagent stripDaniel Dibardino Work Phone: Start: 77-98-1530IDSRRF ACID,POINT OF CAREDaniel Dibardino Work Phone: [phone]: 37-67-9105Vnjvxiycz [Moles/Vol]Caro Dibardino Work Phone: [phone]: 31-15-7730Nbzcex [Moles/Vol]Caro Dibardino Work Phone: [phone]: 24-79-2191YYOYP GAP (CALC) POCDANIEL DIBARDINO Start: 02-36-3006FHDYCMPO BLOOD GAS, POCDANIEL DIBARDINOStart: 16-00-7509Bgeoynl ionizedDANIEL DIBARDINOStart: 50-52-6812Hhamszzl other sourceDANIEL DIBARDINO Start: 46-06-1927GGOXBMHMUG W/GFR POINT OF CAREDANIEL DIBARDINOStart: 07-04-2019 LACTIC ACID,POINT OF CAREDANIEL DIBARDINOStart: 04-75-6252Aipcwx serum plasma or whole bloodDANIEL DIBARDINOStart: 96-50-1594CDNJXCHWE FRESH FROZEN PLASMADaniel Dibardino Work Phone: Start: 05-21-4856Uhgzodx blood reagent stripDANIEL DIBARDINOStart: 74-88-1363JSDAM GAP (CALC) POCDaniel Dibardino Work Phone: Start: 47-75-9254FCKEDXUP BLOOD GAS, POCDaniel Dibardino Work Phone: Start: 16-45-1824Udejl count hemoglobinDaniel Dibardino Work Phone: Start: 35-21-2706RUUGRGO, IONIC (POC)Caro Dibardino Work Phone: Start: 96-92-8926Vbifgqxj [Moles/Vol]Caro Dibardino Work Phone: Start: 97-45-4502VYGWJPOAEN W/GFR POINT OF CAREDaniel Dibardino Work Phone: Start: 18-51-2719Ttct bld gluc mntr dev cleared fda spec home useDaniel Dibardino Work Phone: Start: 91-67-3674AVDPBU ACID,POINT OF CAREDaniel Dibardino Work Phone: Start: 69-27-0783Bhkgvmxnd [Moles/Vol]Caro Dibardino Work Phone: Start: 90-90-7568Bprkyp [Moles/Vol]Caro Dibardino Work Phone: Start: 64-27-9802KSGZC/VASCULAR CHECKSDANIEL DIBARDINO Start: 35-69-9070ZAXRBUH COMMUNICATIONDANIEL DIBARDINOStart: 11-35-4604TJQKNFHI PATIENTDANIEL DIBARDINOStart: 48-84-9670MNULF WEIGHTSDANIEL DIBARDINOStart: 42-70-4406GQMZYP AND OUTPUTDANIEL DIBARDINOStart: 96-26-0091GRYV BE UP FOR MEALS CARO DIBARDINOStart: 60-56-5093Qjfdortn alejandro-hughes eb virus nuclear ag ebna CARO DIBARDINOStart: 74-58-2628Pjp routine ecg w/least 12 lds w/i&rDANIEL DIBARDINOStart: 87-14-0605EUT REPORTDANIEL DIBARDINOStart: 76-95-8475Jzbni gases any combination ph pco2 po2 co2 yri4GAMNWO DIBARDINOStart: 25-38-5730Ggffgxf blood reagent stripDaniel Dibardino Work Phone: Start: 63-49-0169Hrbyv of lactateDANIEL DIBARDINO Start: 33-70-8390Cxkxv of magnesiumDANIEL DIBARDINOStart: 64-16-0438Hniuu metabolic panel calcium totalDANIEL DIBARDINOStart: 39-09-7353Dqzta count complete auto&auto difrntl wbcDANIEL DIBARDINOStart: 81-12-7520Xzyadcekml activityDANIEL DIBARDINOStart: 88-21-0120Iwctwnz function panelDANIEL DIBARDINO Start: 00-28-0226Fnubbtalpik timeDANIEL DIBARDINOStart: 22-31-8626FJFGRBVLO FRESH FROZEN PLASMADANIEL DIBARDINOStart: 13-79-7522FPNTH GAP (CALC) POCDANIEL DIBARDINOStart: 26-91-3369MAVYXJKP BLOOD GAS, POCDANIEL DIBARDINOStart: 40-02-3927Evohd count hemoglobinDANIEL DIBARDINOStart: 17-98-5274Nlxpoyk ionized CARO DIBARDINOStart: 83-42-9185Ddgnaxpt other sourceDANIEL DIBARDINOStart: 56-83-7835QLDVBGZVEY W/GFR POINT OF CAREDANIEL DIBARDINOStart: 12-02-6077Pmqf bld gluc mntr dev cleared fda spec home useDANIEL DIBARDINOStart: 07-04-2019 LACTIC ACID,POINT OF CAREDANIEL DIBARDINOStart: 98-61-2154Ptroeyjbl serum plasma/whole bloodDANIEL DIBARDINOStart: 16-59-2336Xqqgvb serum plasma or whole bloodDANIEL DIBARDINOStart: 44-58-5835Zlp routine ecg w/least 12 lds w/i&rDANIEL DIBARDINOStart: 00-46-0719EUPQXQJB PATIENTDANIEL DIBARDINOStart: 07-04-2019 TRANSFUSE PLATELETSDANIEL DIBARDINOStart: 51-83-2527Sceryppzucx blood/blood componentsDANIEL DIBARDINOStart: 39-14-2814Hqchxjs blood reagent stripDaniel Dibardino Work Phone: Start: 78-00-4896WIZW HEART COAGDaniel Dibardino Work Phone: Start: 62-99-0137Eqi routine ecg w/least 12 lds i&r onlyDaniel Dibardino Work Phone: Start: 76-43-1366QDC REPORTHpf ScanningStart: 79-74-1581Vhdvnkjm alejandro-hughes eb virus nuclear ag ebnaDANIEL DIBARDINOStart: 11-81-5590Ccfxx count complete automatedDANIEL DIBARDINOStart: 07-03-2019 Reticulated platelet assayDANIEL DIBARDINOStart: 11-59-2093II GAS,MIX-RUFINO,EXT Caro Dibardino Work Phone: Start: 16-15-2894Lfsrf of lactateDaniel Dibardino Work Phone: Start: 36-25-8471Xbmcd of magnesiumDaniel Dibardino Work Phone: Start: 49-04-8773Cdqth metabolic panel calcium total Caro Dibardino Work Phone: Start: 53-29-8117Ouwsh count complete auto&auto difrntl wbcDaniel Dibardino Work Phone: Start: 77-32-0130Zvbqdzk ionizedDaniel Dibardino Work Phone: Start: 84-43-3287Alevgmiatz activityDaniel Dibardino Work Phone: Start: 12-55-1541Cudywfq function panelDaniel Dibardino Work Phone: Start: 74-67-9569Gcdsuzsbxkt timeDaniel Dibardino Work Phone: Start: 20-89-7601IOKMLAAWS FRESH FROZEN PLASMADominguez Plummer Work Phone: Start: 56-14-2282UWUPZ GAP (CALC) POCDaniel Dibardino Work Phone: Start: 83-39-0956DGGQKKZL BLOOD GAS, POCDaniel Dibardino Work Phone: Start: 54-82-9892Nimjh count hemoglobinDaniel Dibardino Work Phone: Start: 17-29-6758TFFKDPT, IONIC (POC)Caro Dibardino Work Phone: Start: 77-00-4044Sbexsyfd [Moles/Vol]Caro Dibardino Work Phone: Start: 68-80-8243JUHXSOXLES W/GFR POINT OF CAREDaniel Dibardino Work Phone: Start: 81-87-4994Lqxj bld gluc mntr dev cleared fda spec home useDaniel Dibardino Work Phone: Start: 72-81-0695PMVDFC ACID,POINT OF CAREDaniel Dibardino Work Phone: Start: 08-33-4665Iupskcybj [Moles/Vol]Caro Dibardino Work Phone: Start: 22-95-7900Kiunir [Moles/Vol]Caro Dibardino Work Phone: Start: 99-63-4339DIG KAOLIN TEGDANIEL DIBARDINOStart: 19-73-4941GOK KAOLIN TEG WITH HEPARINDANIEL DIBARDINOStart: 24-39-6172Bqu routine ecg w/least 12 lds i&r onlyDaniel Dibardino Work Phone: Start: 74-93-4825XGJ REPORTHpf ScanningStart: 01-18-7713LWXJF GAP (CALC) POCDANIEL DIBARDINOStart: 74-80-3055VEYMWZNT BLOOD GAS, POCDANIEL DIBARDINOStart: 83-80-4514Wginootp other sourceDANIEL DIBARDINO Start: 73-12-3745WMDQFHPHPI W/GFR POINT OF CAREDANIEL DIBARDINOStart: 07-03-2019 LACTIC ACID,POINT OF CAREDANIEL DIBARDINOStart: 81-95-3837Dpjlsdsyw serum plasma/whole bloodDANIEL DIBARDINOStart: 46-35-1399Zkjtsw serum plasma or whole bloodDANIEL DIBARDINOStart: 12-20-3239Ekebkrrwjg exam chest single viewDANIEL DIBARDINOStart: 64-48-7928MBRXLSCIN PLATELETSDaniel Dibardino Work Phone: Start: 07-03-2019 End: 97-83-9490Xwtcpnb blood reagent stripDaniel Dibardino Work Phone: Start: 88-85-7608Qykrf iv surg pathology gross&microscopic examDANIEL DIBARDINOStart: 07-03-2019 End: 87-64-7949NLHJZJL FRESH FROZEN PLASMADaniel Dibardino Work Phone: Start: 38-64-0133YFFGCTZ PLATELETSDaniel Dibardino Work Phone: Start: 86-45-7164Idbga count hemoglobinDANIEL DIBARDINOStart: 63-71-8551Msmp bld gluc mntr dev cleared fda spec home useDANIEL DIBARDINOStart: 35-23-1810Ubwgc of magnesiumDaniel Dibardino Work Phone: Start: 71-60-7798Kuysk metabolic panel calcium total Caro Dibardino Work Phone: Start: 36-83-7656Velkw count complete automatedDaniel Dibardino Work Phone: Start: 75-54-7924Xshzuoi ionizedDaniel Dibardino Work Phone: Start: 33-76-9022QGOABLRN PLATELET FRACTIONDaniel Dibardino Work Phone: Start: 15-56-9597PGGG HEART COAGDaniel Dibardino Work Phone: Start: 56-83-5672UBMIZ GAP (CALC) POCDANIEL DIBARDINO Start: 25-81-0966ROUBWHJV BLOOD GAS, POCDANIEL DIBARDINOStart: 07-03-2019 Chloride other sourceDANIEL DIBARDINOStart: 53-43-8089RFAELCYUFS W/GFR POINT OF CAREDANIEL DIBARDINOStart: 47-21-4638DBRDEX ACID,POINT OF CAREDANIEL DIBARDINO Start: 63-77-6270Uyfgbqswc serum plasma/whole bloodDANIEL DIBARDINOStart: 16-39-8480Vgmrra serum plasma or whole bloodDANIEL DIBARDINOStart: 07-03-2019 End: 24-76-8291CZC KAOLIN TEGDaniel Dibardino Work Phone: Start: 07-03-2019 End: 40-08-6771QHC KAOLIN TEG WITH HEPARINDaniel Dibardino Work Phone: Start: 38-90-8482Sqpxykyzksl blood/blood components CARO DIBARDINOStart: 07-03-2019 End: 71-15-5812MTXBM GAP (CALC) POCDaniel Dibardino Work Phone: Start: 07-03-2019 End: 60-19-7549SRJSCAUT BLOOD GAS, POCDaniel Dibardino Work Phone: Start: 07-03-2019 End: 86-17-3712Dnxqt count hemoglobinDaniel Dibardino Work Phone: Start: 07-03-2019 End: 40-74-6666XKAERSH, IONIC (POC)Caro Dibardino Work Phone: Start: 07-03-2019 End: 76-66-1699Nrpdgdgq [Moles/Vol]Caro Dibardino Work Phone: Start: 07-03-2019 End: 10-20-2675TQUNHNARKL W/GFR POINT OF CAREDaniel Dibardino Work Phone: Start: 07-03-2019 End: 89-55-5754Fcjo bld gluc mntr dev cleared fda spec home useDrigoberto Lockeardino Work Phone: Start: 07-03-2019 End: 43-86-7799CQTSGX ACID,POINT OF CARECaro Lockeardino Work Phone: Start: 07-03-2019 End: 38-33-6513Ttofcviba [Moles/Vol]Caro Teresa Work Phone: Start: 07-03-2019 End: 42-61-8484Wksunu [Moles/Vol]Caro Teresa Work Phone: Start: 65-86-1329Qgcksttnwv exam chest single view Caro Teresa Work Phone: Start: 27-66-2574Oyx routine ecg w/least 12 lds w/i&r CARO NILSNOStart: 73-43-6445PUK REPORTDANIEL DIBARDINOStart: 07-03-2019 TRANSFUSE RED BLOOD CELLSDANIANGELICA DIBARDINOStart: 94-61-5768WAJZCTB RBC (CROSSMATCH)CARO NILSNOStart: 85-12-6557ZTXNSYVYZKY REACTION MANAGEMENT CARO WRAYNOStart: 43-40-2491TURSOT INFORMED CONSENTDANIEL DIBARDINOStart: 27-88-2188Jbcjz of magnesiumDANIEL DIBARDINOStart: 23-04-2388Tfges metabolic panel calcium totalDANIEL DIBARDINOStart: 72-56-4978Nnjqi count platelet automatedDANIEL DIBARDINOStart: 43-58-5077Cdtgvyamyj activityDANIEL DIBARDINO Start: 30-93-9569Cbbzilqhkfl timeDANIEL DIBARDINOStart: 58-91-1696Vmwcqsnfgabvxu time partial plasma/whole bloodDANIEL DIBARDINOStart: 12-05-2786MGCSK GAP (CALC) POCDANIEL DIBARDINOStart: 36-19-2900GEKWBZJJ BLOOD GAS, POCDANIEL DIBARDINOStart: 68-74-7365Xfxjaad ionizedDANIEL DIBARDINOStart: 07-03-2019 Chloride other sourceDANIEL DIBARDINOStart: 80-67-4422Ylaxzaopt serum plasma/whole bloodDANIEL DIBARDINOStart: 38-92-8879Dfrbvc serum plasma or whole bloodDANIEL DIBARDINOStart: 07-03-2019 End: 03-00-8398WGVOZPSSJ RED BLOOD CELLSDaniel Dibardino Work Phone: Start: 07-03-2019 End: 41-73-1868COZEI GAP (CALC) POCDaniel Dibardino Work Phone: Start: 07-03-2019 End: 30-10-1903WZXCJTZC BLOOD GAS, POCDaniel Dibardino Work Phone: Start: 07-03-2019 End: 04-45-7944Fjeql count hemoglobinDaniel Dibardino Work Phone: Start: 07-03-2019 End: 76-61-3121ARCDWKY, IONIC (POC)Caro Dibardino Work Phone: Start: 07-03-2019 End: 24-27-3500Ctqueizz [Moles/Vol]Caro Dibardino Work Phone: Start: 07-03-2019 End: 53-84-5882SQWZIJVHNI W/GFR POINT OF CAREDaniel Dibardino Work Phone: Start: 07-03-2019 End: 20-80-2020Sftz bld gluc mntr dev cleared fda spec home useDaniel Dibardino Work Phone: Start: 07-03-2019 End: 57-88-0420XIGMML ACID,POINT OF CAREDaniel Dibardino Work Phone: Start: 07-03-2019 End: 89-41-7421Oqodfmfsw [Moles/Vol]Caro Dibardino Work Phone: Start: 07-03-2019 End: 25-86-6230Haybgr [Moles/Vol]Caro Dibardino Work Phone: Start: 98-93-9130Yilbu gases any combination ph pco2 po2 co2 nhx3GEQHKB DIBARDINOStart: 40-42-3969NMH HEMODYNAMIC GOALSDANIEL DIBARDINOStart: 69-44-7906WM CONSULT TO CARDIAC REHABDANIEL DIBARDINOStart: 87-26-6042RM CONSULT TO CASE MANAGEMENTDANIEL DIBARDINOStart: 62-36-8422VK CONSULT TO DIETITIANDADANIEL DIBARDINOStart: 68-38-3287HY CONSULT TO SPIRITUAL SERVICESDANIEL DIBARDINOStart: 46-39-7522LLYBG INTERMITTENT PNEUMATIC COMPRESSION DEVICEDANIEL DIBARDINOStart: 18-28-8786NLCDLL AND REPLACE ANGELY HOSE DAILYDANIANGELICA DIBARDINOStart: 27-24-0982SHGSVCTES DEEP BREATHING AND COUGHING CARO LOCKEARDINOStart: 56-50-1062XZ CONSULT TO CARDIOLOGYDAEL DIBARDINOStart: 47-62-6382HD EVAL AND TREATDANIEL DIBARDINOStart: 50-68-1577RK EVAL AND TREAT CARO LOCKEARDINOStart: 46-33-0754DAMQW WARMING BLANKETDANIEL DIBARDINOStart: 28-01-5758SOYXLVU STERNAL PRECAUTIONDANIEL DIBARDINOStart: 06-60-7060GCMKGDL HOB CARO DIBARDINOStart: 66-55-4549ORDDKAJX OXYGEN THERAPY PROTOCOLDANIEL DIBARDINOStart: 44-90-7989IWHHOIFLXYU TUBE MAINTENANCEDANIEL DIBARDINOStart: 65-28-4116KKPSJWV COMMUNICATIONDANIEL DIBARDINOStart: 62-36-6895QCNTD CAREDANIEL DIBARDINOStart: 87-09-0900VEVF CODEDANIEL DIBARDINOStart: 82-06-6399DRGQZO AND OUTPUTDANIEL DIBARDINOStart: 65-27-7619HCEFCZAYEOCLV NURSING CARE ORDER (SPECIFY)CARO LOCKEARDINOStart: 99-40-9337GNREEM PHYSICIAN (SPECIFY)CARO LOCKEARDINOStart: 36-33-0901SPCEOHQFF MONITORINGDANIEL DIBARDINOStart: 07-03-2019 UP IN CHAIRDANIEL DIBARDINOStart: 81-11-7027NGK KAOLIN TEGDANIEL DIBARDINOStart: 88-34-3422MUA KAOLIN TEG WITH HEPARINDANIEL DIBARDINOStart: 44-29-1004QMTBTFQZ BLOOD GAS, POCDANIEL DIBARDINOStart: 01-21-7291Xzxbkj serum plasma or whole bloodDANIEL DIBARDINOStart: 49-27-6080Jwj routine ecg w/least 12 lds i&r only Vasiliy Bethea Work Phone: Start: 15-07-4002TWN REPORTHpf ScanningStart: 07-03-2019 End: 28-38-3718MJKK CORONARY ARTERY BYPASS AORTIC AND MITRAL VALVE REP REDO Caro Dibardino Work Phone: Start: 07-03-2019 End: 24-20-0508OMUKWKMTT RED BLOOD CELLSDaniel Dibardino Work Phone: Start: 54-14-9951ROETWVXTT RED BLOOD CELLSDANIEL DIBARDINOStart: 09-98-1751Npyve of magnesiumNicholas A Bethea Work Phone: Start: 31-35-0057Dklya metabolic panel calcium total Dominguez M Elian Work Phone: Start: 43-11-6864Eovgo count platelet automated Vasiliy Bethea Work Phone: Start: 55-38-5044Tzyynvd ionizedDaniel Dibardino Work Phone: Start: 39-73-3542Vcmiknairn activityNicholas A Bethea Work Phone: Start: 24-03-3400Atlzvzmkjlt timeAdam Satnam Elian Work Phone: Start: 82-94-7964Wblfmgnekfqpca time partial plasma/whole bloodNicholas A Bethea Work Phone: Start: 51-87-4431DCLMK GAP (CALC) POCDaniel Dibardino Work Phone: Start: 84-57-5995ZRFZVOUP BLOOD GAS, POCDaniel Dibardino Work Phone: Start: 61-83-4296Rjkvk count hemoglobinDaniel Dibardino Work Phone: Start: 45-09-9873BFPCNND, IONIC (POC)Caro Dibardino Work Phone: Start: 04-49-7049Zqlcaeqj [Moles/Vol]Caro Lockeardino Work Phone: Start: 78-05-7863Fvpr bld gluc mntr dev cleared fda spec home useDrigoberto Lockeardino Work Phone: Start: 52-02-7661Cgugqrggx [Moles/Vol]Caro Dibardino Work Phone: Start: 49-93-7207Zquimq [Moles/Vol]Caro Dibardino Work Phone: Start: 59-24-4294LTSWVUO RBC (CROSSMATCH)CARO WRAYNOStart: 28-47-3443Jazbenxpwt exam chest single viewNicholas A Bethea Work Phone: Start: 96-79-8979Eyvsjpyby serum plasma/whole blood CARO WRAYNOStart: 31-76-7462Ispsb iv surg pathology gross&microscopic exam CARO WRAYNOStart: 25-87-0547BTO KAOLIN TEGDaniel Dibardino Work Phone: Start: 54-29-6797XKR KAOLIN TEG WITH HEPARINDaniel Dibardino Work Phone: Start: 02-74-3220GKKROUZN BLOOD GAS, POCDANIEL DIBARDINOStart: 30-30-9985Hjmjqqz ionizedDANIEL DIBARDINOStart: 07-03-2019 Potassium serum plasma/whole bloodDANIEL DIBARDINOStart: 35-95-2342Mdoelh serum plasma or whole bloodDANIEL DIBARDINOStart: 01-53-5687XVFTGLO RBC (CROSSMATCH) CARO WRAYNOStart: 03-26-2860JRFXPMIQL RED BLOOD CELLSDaniel Dibardino Work Phone: Start: 07-03-2019 End: 37-74-3591AUJBLDIV BLOOD GAS, POCDaniel Dibardino Work Phone: Start: 07-03-2019 End: 95-66-3327Nvfnm count hemoglobinDaniel Dibardino Work Phone: Start: 07-03-2019 End: 20-24-1048CXPEAVR, IONIC (POC)Caro Dibardino Work Phone: Start: 07-03-2019 End: 48-53-0107Goaq bld gluc mntr dev cleared fda spec home useDaniel Dibardino Work Phone: Start: 07-03-2019 End: 47-34-0196Tzzpumrwt [Moles/Vol]Caro Dibardino Work Phone: Start: 07-03-2019 End: 48-30-9488Elcgxr [Moles/Vol]Caro Dibardino Work Phone: Start: 87-80-2529OXEJBRQTG RED BLOOD CELLSDANIEL DIBARDINOStart: 98-51-2165ZOXOARVO BLOOD GAS, POCDANIEL DIBARDINOStart: 88-83-9876Lcvlywc ionizedDANIEL DIBARDINOStart: 27-43-7746Hmweirkht serum plasma/whole bloodDANIEL DIBARDINOStart: 15-46-8656Plztwl serum plasma or whole bloodDANIEL DIBARDINOStart: 07-03-2019 End: 58-94-8239MYQHGZDR BLOOD GAS, POCDaniel Dibardino Work Phone: Start: 07-03-2019 End: 44-64-1205Mqorq count hemoglobinDaniel Dibardino Work Phone: Start: 07-03-2019 End: 22-88-4946CPERZCW, IONIC (POC)Caro Dibardino Work Phone: Start: 07-03-2019 End: 62-14-2377Uekz bld gluc mntr dev cleared fda spec home useDaniel Dibardino Work Phone: Start: 07-03-2019 End: 46-64-9606Mabfbkcgf [Moles/Vol]Caro Dibardino Work Phone: Start: 07-03-2019 End: 05-68-0575Yexghv [Moles/Vol]Caro Lockeardino Work Phone: Start: 06-73-4796CLUVJ VENOUS GAS, POINT OF CAREDANIEL DIBARDINOStart: 11-20-9577Hbxbsoi bacterial quanttative colony count urine CARO LOCKEARDINOStart: 67-09-9175WQC KAOLIN TEGDANIEL DIBARDINOStart: 07-03-2019 POC KAOLIN TEG WITH HEPARINDANIEL DIBARDINOStart: 94-19-9175VPBKOLFF BLOOD GAS, POCDANIEL DIBARDINOStart: 72-87-2448Giucjsa ionizedDANIEL DIBARDINOStart: 86-23-0228Lzhjzafzu serum plasma/whole bloodDANIEL DIBARDINOStart: 07-03-2019 Sodium serum plasma or whole bloodDANIEL DIBARDINOStart: 07-03-2019 End: 50-38-7397WGRPNTLFU RED BLOOD CELLSDaniel Dibardino Work Phone: Start: 24-81-9666Mgxtdiozucd blood/blood components CARO LOCKEARDINOStart: 07-03-2019 End: 68-89-0859YZRWFBBX BLOOD GAS, POCDaniel Dibardino Work Phone: Start: 07-03-2019 End: 72-83-0268Hzdbc count hemoglobinDaniel Dibardino Work Phone: Start: 07-03-2019 End: 06-81-1551QUBDTVB, IONIC (POC)Caro Dibardino Work Phone: Start: 07-03-2019 End: 78-67-4530Ohdh bld gluc mntr dev cleared fda spec home useDaniel Dibardino Work Phone: Start: 07-03-2019 End: 02-34-3426Kmrezmvwg [Moles/Vol]Caro Dibardino Work Phone: Start: 46-59-1262Qulmbm [Moles/Vol]Caro Dibardino Work Phone: Start: 88-50-1860OHAIV VENOUS GAS, POINT OF CAREDaniel Dibardino Work Phone: Start: 00-34-6999Nnlvxwb bacterial quanttative colony count urineDaniel Dibardino Work Phone: Start: 92-41-9342CFT KAOLIN TEGDaniel Dibardino Work Phone: Start: 37-26-4489MGZ KAOLIN TEG WITH HEPARINDaniel Dibardino Work Phone: Start: 88-40-3736HAJBBVQU BLOOD GAS, POCDaniel Dibardino Work Phone: Start: 07-03-2019 End: 56-34-3863Zgqlf count hemoglobinDaniel Dibardino Work Phone: Start: 81-30-8033IKDRZZJ, IONIC (POC)Caro Dibardino Work Phone: Start: 07-03-2019 End: 01-61-8443Unfu bld gluc mntr dev cleared fda spec home useDaniel Dibardino Work Phone: Start: 51-42-8789Sscvjzdrx [Moles/Vol]Caro Dibardino Work Phone: Start: 06-15-9307Nrbcju [Moles/Vol]Caro Lockeardino Work Phone: Start: 05-46-2359Kefcg iv surg pathology gross&microscopic examDANIEL DIBARDINOStart: 65-90-0060ZKKQAZW STATUS (DIRECT) CARO LOCKETDNOStart: 07-03-2019 End: 42-67-0527Bcmyoydf artery byp w/vein & artery graft 2 veinDaniel Dibardino Work Phone: Start: 96-92-7364Gaatz iv surg pathology gross&microscopic examDaniel Dibardino Work Phone: Start: 73-09-0753DVUBOMP RBC (CROSSMATCH)CARO LOCKEARDINOStart: 92-22-9559Cyuz transesophag r-t 2d w/prb img acquisj i&rDANIEL DIBARDINOStart: 00-00-4975KMTSK SIGNSDANIEL DIBARDINOStart: 36-93-1780Ye thorax w/o contrast materialNicholmeeta Sanabria [employer] Work Phone: Start: 04-50-5892Nkwulb scan extracranial art compl bi studyVasiliy Sanabria [employer] Work Phone: Start: 46-28-2259LKU DRAWDANIEL DIBARDINOStart: 92-75-4848HHR DRAWDANIEL DIBARDINOStart: 28-16-4054Wqc-scan xtr veins complete bilateral studyDANIEL DIBARDINOStart: 25-16-6556Wwvs tthrc r-t 2d w/wom-mode compl spec&colr dDANIEL DIBARDINOStart: 58-10-5706Htz-scan xtr veins unilateral/limited studyNicaguilar Sanabria [employer] Work Phone: Start: 24-06-7115NDI DRAWDANIEL DIBARDINOStart: 92-07-4905WIE DRAWDANIEL DIBARDINOStart: 82-96-2880Qfyndlsk screenStvz 1Start: 79-01-5240Yrvtxwv bacterial quanttative colony count urineDANIEL DIBARDINOStart: 92-02-8992Qpdeauosuw microscopic onlyDANIEL DIBARDINOStart: 86-59-6575Fyfow dip stick/tablet rgnt auto w/o microscopyDANIEL DIBARDINOStart: 06-25-2019 Radiologic exam chest 2 viewsDANIEL DIBARDINOStart: 14-58-5005Cdogv count complete auto&auto difrntl wbcDANIEL DIBARDINOStart: 44-88-9819Touehjebciaqj metabolic panelDANIEL DIBARDINOStart: 81-77-9400Dyvmnoorgo glycosylated a1c CARO DIBARDINOStart: 26-01-6983Atzrjqkr aggregation in vitro each agentDANIEL DIBARDINOStart: 72-45-9462Ouisldbxjtv timeDANIEL DIBARDINOStart: 06-25-2019 Thromboplastin time partial plasma/whole bloodDANIEL DIBARDINOStart: 06-25-2019 TYPE AND SCREENDANIEL DIBARDINOStart: 14-56-6832JADKWRME BLOOD GAS, POCDANIEL DIBARDINOStart: 21-96-5155Kmp routine ecg w/least 12 lds w/i&rDANIEL DIBARDINO Start: 95-82-5118OUY REPORTDANIEL DIBARDINOStart: 19-57-4805IES DRAWDANIEL DIBARDINOStart: 99-17-4187Ndvmsor bacterial quanttative colony count urineDaniel Dibardino Work Phone: Start: 83-18-4099Lzlqvygzny microscopic onlyDaniel Dibardino Work Phone: Start: 76-27-9330Mlubo dip stick/tablet rgnt auto w/o microscopyDaniel Dibardino Work Phone: Start: 41-07-4547Hlbbjhehgb exam chest 2 viewsDaniel Dibardino Work Phone: Start: 68-86-8840Yydzm count complete auto&auto difrntl wbcDaniel Dibardino Work Phone: Start: 01-52-8784Dqlxf typing serologic aboDaniel Dibardino Work Phone: Start: 47-93-0700Vyvatchzbyvpo metabolic panelDaniel Dibardino Work Phone: Start: 47-80-8660Rerbymmdbj glycosylated n5tJfvkxx Dibardino Work Phone: Start: 55-38-0560Ahtwrbiq aggregation in vitro each agentDaniel Dibardino Work Phone: Start: 08-65-0690Eogqexorvwx timeDaniel Dibardino Work Phone: Start: 63-39-7480Gnykjputurcqrj time partial plasma/whole bloodDaniel Dibardino Work Phone: Start: 52-83-6751Selbw s aureus methicillin resist amp probe tqDaniel Dibardino Work Phone: Start: 21-63-7361QVEXJICT BLOOD GAS, POCDaniel Dibardino Work Phone: Start: 18-28-3336Bxi routine ecg w/least 12 lds i&r onlyDaniel Dibardino Work Phone: Start: 35-71-7595PZS REPORTHpf ScanningStart: 04-26-4314Lcvgrvw catheterizationTasia Irizarry Work Phone: Start: 52-38-2106Temvfeq [Mass/volume] in BloodTasia Irizarry Work Phone: Start: 53-72-7231Iyhjtmoziw exam chest 2 viewsEdshivam Hernandez MD Other Phone: Start: 05-10-2019 End: 73-41-9649Eyrmteggkqzdi metabolic panelGrayson Hernandez MD Other Phone: Start: 98-36-5256Fdrki panelGrayson Hernandez MD Other Phone: Start: 76-77-5946CQWQMJM FASTING?Grayson Hernandez MD Other Phone: Start: 04-18-2019 End: 56-63-1970Hfneeyvzxwpt ophthalmic imaging retinaPhilip Stefano Chang MDStart: 04-19-2018 End: 61-84-7128Elouelebnmdg ophthalmic imaging retinaPhilip Stefano Chang MDStart: 01-19-2017 End: 03-20-9303Fpyzenfsnzjz ophthalmic imaging retinaPhilip Stefano Chang MDStart: 11-03-2015 End: 12-94-2279Gwvfvjgbhvvp ophthalmic imaging retinaPhilip Stefano MDStart: 11-04-2014 End: 08-21-7585Orcev medical xm&eval comprhnsv estab pt 1/>Dm Agarwal Jr, MD Start: 10-29-2013 End: 36-58-7505Ocknr medical xm&eval comprhnsv estab pt 1/>Dm Agarwal Jr, MD Start: 10-20-2012 End: 01-49-8050Ygziq medical xm&eval comprhnsv estab pt 1/>Dm Agarwal Jr, MD Start: 10-20-2012 End: 88-93-3105PqvvenaqJtzvxe Nelsen Jr MDStart: 04-26-2011 End: 13-36-8809Kfhxw medical xm&eval comprhnsv estab pt 1/>Dm Agarwal Jr, MD Plan of Treatment DateCare ActivityDetailAuthorStart: 03-77-4106Ismqylael for malignant neoplasm of colonNOIN HealthcareStart: 11-05-2025 End: 79-77-0909Avhidpr encounter procedureNOMS SWS DERMStart: 86-87-1166Njcgpyae screeningDiabetes: Retinopathy ScreeningNOMS HealthcareStart: 05-30-2025 End: 59-14-2856Fjoiuaf encounter kordcmdsl38/08/2026 11:00 AM EST Office Visit [facility] [address] [place] [id number] Anshul Irizarry MD [address] [place] [address] 6 month f/u lab/ekgMercy Cardiology SpecialistComment on above:6 month f/u lab/ekgStart: 14-16-3690Mzdvg screening for proteinDiabetes: Urine Protein ScreeningNOIN HealthcareStart: 03-11-2025 Bacteria identified in Urine by CultureUrine [facility] Institutetart: 56-31-8767Mwpso [facility] Hospitaltart: 03-05-2025 End: 58-58-6260Djhhegc encounter procedureNOIN Alexis 100 Family MedicineComment on above:Primary hypertension; Mixed hyperlipidemia; Hypokalemia; Hypomagnesemia; Type 2 diabetes mellitus with hyperglycemia, without long-term current use of insulin (HCC); Stage 3 chronic kidney disease due to type 2 diabetes mellitus (HCC); Microalbuminuria; Polypharmacy; Paroxysmal atrial fibrillation (HCC)Start: 02-28-2025 End: 15-50-9093Bchucbm encounter wmpzcoogc87/09/2025 2:30 PM EDT Office Visit [facility] [address] [place] [address] Grayson Hernandez MD [address] [facility] [address] [place] [address] (Fax)[facility] 100Start: 02-19-2025 End: 85-62-3372Ttvzyhz encounter upgsbtdrw40/30/2025 2:00 PM EDT Office Visit [facility] [address] [place] [address] Grayson Hernandez MD [address] [facility] [address] [place] [address] (Fax)[facility] 100Start: 11-72-1455QGWEX-19 Vaccine ( season)COVID-19 Vaccine ()[facility] Start: 01-20-2025 End: 58-04-7371Msvhnsrahspgz metabolic 2000 panel - Serum or PlasmaComprehensive metabolic panel Lab Routine Primary hypertension ([facility]) Hypokalemia Type 2 diabetes mellitus with stage 4 chronic kidney disease, without long-term current use of insulin ([facility]) Expected: 01/20/2025, Expires: 08/20/2025[facility] Work Phone: Comment on above:Expected: 01/20/2025, Expires: 08/20/2025Start: 01-20-2025 End: 34-40-4886Vtldqhnpit A1c/Hemoglobin.total in BloodHemoglobin A1c Lab Routine Type 2 diabetes mellitus with hyperglycemia, without long-term current use of insulin ([facility]) Expected: 01/20/2025, Expires: 08/20/2025[facility] HealthcareComment on above:Expected: 01/20/2025, Expires: 08/20/2025Start: 01-20-2025 End: 32-76-7166Oraqx 1996 panel - Serum or PlasmaLipid panel Lab Routine Mixed hyperlipidemia ([facility]/HCC) Expected: 01/20/2025, Expires: 08/20/2025[facility] HealthcareComment on above:Expected: 01/20/2025, Expires: 08/20/2025Start: 78-71-3141Toufyrpkh vaccinationFlu vaccine (Season Ended)Vannesa Lora [facility] CampusStart: 11-15-2024 End: 31-16-0052Ppxafap encounter ydvmjeyku98/26/2025 1:30 PM EDT Office Visit [facility] Tipple Boss [address] [place] [address] Anshul Irizarry MD [address] [phone] mnth f/u echo/lab/ekg priorMercy Cardiology SpecialistComment on above:6 mnth f/u echo/lab/ekg priorStart: 11-05-2024 End: 18-33-3265Cxdbyph encounter procedureNOMS SWS DERMComment on above:Arrived Start: 10-05-2024 End: 32-31-7381tamubumcou25/16/2025 2:00 PM EDT Treatment [facility] PT [address] [place] [address] Neno Odonnell PTANOMS CI PTStart: 10-02-2024 End: 90-77-3366goisuqmasw05/13/2025 2:00 PM EDT Treatment [facility] PT [address] [place] [address] Neno Odonnell PTANOMS CI PTStart: 09-28-2024 End: 93-59-8633melnixxmvu35/09/2025 1:00 PM EDT Treatment [facility] PT [address] [place] [address] Neno Odonnell PTANOMS CI PTStart: 09-05-2024 End: 29-57-6415Mkiweqt encounter qeazoqhgb74/16/2025 2:30 PM EDT Office Visit [facility] FM [address] [place] [address] Grayson Hernandez MD [address] [place] [address] (Fax)N[facility] CI FM 100Start: 08-20-2024 End: 34-36-0830Imqfuzw encounter dyiwugnjv53/31/2025 3:00 PM EDT Office Visit [facility] [address] [place] [address] Grayson Hernandez MD [address] [place] [address] (Fax) Primary hypertension ([facility]/HCC); Mixed hyperlipidemia ([facility]/HCC) ; Hypokalemia;Stage 3 chronic kidney disease due to type 2 diabetes mellitus (HCC) ([facility]/HCC); Type 2 diabetes mellitus with hyperglycemia, without long-term current use of insulin ([facility]); Hypomagnesemia; PolypharmacyNOMS CI FM 100Comment on above:Primary hypertension ([facility]/HCC); Mixed hyperlipidemia ([facility]/HCC) ; Hypokalemia; Stage 3 chronic kidney disease due to type 2 diabetes mellitus (HCC) ([facility]); Type 2 diabetes mellitus with hyperglycemia, without long-term current use of insulin ([facility]); Hypomagnesemia; PolypharmacyStart: 07-30-2024 End: 15-75-5653Yhgpajp encounter djxzxtbge13/10/2025 2:30 PM EDT Office Visit [facility] [address] [facility] [address] [place] [address] Grayson Hernandez MD [address] [facility] 100 [place] [address] ArrivedNOMS CI FM 100Comment on above: ArrivedStart: 74-01-9412Vjvcoctv screeningDiabetes: Retinopathy ScreeningNOMS HealthcareStart: 38-07-0187Wyyofrfuv for malignant neoplasm of breastMammogram NOMS HealthcareComment on above:Postponed from 05/26/2022 (Other Medical Reasons)Start: 18-23-6221Evvkxdlq screeningDiabetes: Retinopathy ScreeningNOMS HealthcareStart: 05-24-2024 End: 18-85-1121Qtbliwi encounter procedureNOMS CI FM 100Comment on above:Arrived Start: 88-33-6197Okoomq Wellness Visit (Medicare Advantage)Annual Wellness Visit (Medicare Advantage)[facility]Start: 42-12-3940Oqtiqjroduqm Vaccine: 65+ Years (2 - PPSV23 or PCV20)Pneumococcal Vaccine: 65+ Years (2 - PPSV23 or PCV20)NOMS HealthcareComment on above:Postponed from 02/14/2017 (Other Patient Reasons)Start: 36-42-1689Urcqndxaoabv Vaccine: 65+ Years (2 of 2 - PPSV23 or PCV20)Pneumococcal Vaccine: 65+ Years (2 of 2 - PPSV23 or PCV20)NOMS HealthcareComment on above:Postponed from 02/14/2017 (Other Patient Reasons) Start: 04-70-5906Tvcgb screenLipid screenMercy Health Work Phone: start: 86-09-5551Rtmlc cultureVeterans Health Administrationtart: 15-24-5567Xvncvssv identified in Urine by CultureUrine CultureVeterans Health Administrationtart: 86-10-6215ZmjsbvxgzVeterans Health Administrationtart: 47-88-1121Ditrs screening for proteinDiabetes: Urine Protein ScreeningNOIN HealthcareStart: 02-21-2024 End: 55-84-0808Zjeivsj encounter tsbtmagge07/01/2024 3:30 PM EDT Office Visit [facility] [address] [address] Grayson Hernandez MD [address] [place] [address] (Fax)N[facility] CI FM 100Start: 02-02-2024 End: 18-49-9484Hihkqxj encounter /12/2024 2:00 PM EDT Office Visit [facility] [address] [address] Grayson Hernandez MD [address] [phone] (Work) (Fax)N[facility] CI FM 100Start: 95-24-6668ZESAD-19 Vaccine ( season)COVID-19 Vaccine ( season)[facility] Start: 37-31-6461Znbot BMI ScreeningAdult BMI ScreeningSalem City Hospital System Start: 68-37-6016Rpfk Risk ScreeningFall Risk ScreeningBrown Memorial Hospital Start: 52-12-5222Teazrcf ScreeningTobacco ScreeningProMercy Health St. Elizabeth Youngstown Hospitaltart: 10-26-7635Oqgveaafi vaccinationFlu vaccine (Season Ended)[facility]OSPITALStart: 71-32-8621Nvonudjqktq Syncytial Virus (RSV) or age 60 yrs+ (1 - 1-dose 75+ series)Respiratory Syncytial Virus (RSV) or age 60 yrs+ (1 - 1-dose 75+ series)Bon [facility] HospitalStart: 35-82-0723Jcprv panel LipidsBON TRINITY HEALTH [facility] EAST CAMPUSStart: 11-08-2023 End: 70-40-3997Dvoefvl encounter procedureKettering Health Behavioral Medical Center Cardiology SpecialistComment on above:6 month f/u with echo (to be done in [place]) and routine testingDr Juan C said we could move appt out since stress was good, howeverStart: 11-03-2023 End: 44-20-0483Ucojqgl encounter lourpeivm32/13/2024 2:35 PM EDT Office Visit [facility] JENNI DERM [address] [facility] [address] [place] [address] Jorge Luis Gasca MD [address] [facility] [address] [place] [address] NOMS JENNI DERMStart: 09-19-2023 End: 03-62-3710Upiwhcx encounter eoitujejj43/29/2024 10:30 AM EDT Office Visit [facility] Tipple Boss [address] [place] [address] Anshul Irizarry MD [address] [place] [address] 4 week follow up TEEKettering Health Behavioral Medical Center Cardiology SpecialistComment on above:4 week follow up TEEStart: 04-24-2024Medicare Annual Wellness (AWV)Medicare Annual Wellness (AWV)NOMS HealthcareStart: 08-19-2023 Shingles vaccine (2 of 2)Shingles vaccine (2 of 2)[facility] CAMPUSStart: 08-08-2023 End: 42-72-4088Mpnzluz encounter iraymfkah55/18/2024 2:30 PM EDT Office Visit [facility]NS FM [address] [place] [address] Grayson Hernandez MD [address] [place] [address] (Fax)DYLAN ROGERS FMStart: 10-32-3973Oshzolb cessation education Tobacco cessation counselingCVP PhysiciansStart: 07-05-2023 End: 40-11-6395Ipaffmm encounter /13/2024 3:00 PM EST Office Visit [facility] [address] [place] [phone] Walker Monroy MD [address] [place] [address], [address], [address], [address] [place] [address] [facility] NeurologyStart: 10-52-8735Ypnmnwxjjg A1c measurementDiabetes: Hemoglobin D7XSULYSaint Joseph Health Center Start: 64-54-7150Mvuaqweyi for malignant neoplasm of breastBreast cancer screen [facility] HOSPITALBotanical TansMCCULLOUGH-HYDE MEMORIAL HOSPITALStart: 97-66-5370Thzuuj Wellness Visit (Medicare Advantage)Annual Wellness Visit (Medicare Advantage)[facility] HOSPITALeRelyx Start: 54-62-1893VXYHZ-19 Vaccine ( season)COVID-19 Vaccine ( season)[facility] SystemStart: 14-48-7591VEYTZ-19 Vaccine ( season)COVID-19 Vaccine ()[facility] HOSPITALSimPrints [facility] Start: 35-04-9879Xqgpteieh vaccinationInfluenza VaccineSalem City Hospital System Start: 30-92-2081Tmwyaghkgm ScreeningDepression ScreeningSalem City Hospital System Start: 67-72-9607Ralltlcdk for malignant neoplasm of colonMercy HealthStart: 47-90-1310Lokxsgz cessation educationTobacco cessation counselingCVP Physicians Start: 10-21-2021 End: 44-48-2187Htmwqey encounter hxtaiphvl83/01/2022 Office Visit Cardiology Anshul Irizarry MD [address] [place], [place] [phone] [facility] Cardiology SpecialistStart: 77-53-6892HLTRK-19 Vaccine (3 - Booster for Moderna series)COVID-19 Vaccine (3 - Booster for Moderna series)[facility] CampusStart: 37-03-5966Vrmkmhxuno measurementCreatinine monitoring [facility] CampusStart: 16-38-7337UrA1h (Bld) [Mass fraction]A1C test (Diabetic or Prediabetic)[facility], KYStart: 07-51-5156Lknzpcixqi A1c tuiwadvgnucN1T test (Diabetic or Prediabetic)[facility] CampusStlake hill: 36-36-7084Ykjcr panelLipid screenSt. Mary'S [facility], [facility] CampusStart: 36-94-8480Yagwyzrwz monitoringPotassium monitoringSt. [facility] CampusStart: 26-80-4229Gceydszxxz measurementCreatinine monitoringUniversity Hospitals [facility], KYStart: 78-82-9340Cykcd panelLipid screenUniversity Hospitals [facility], KYStart: 29-30-9936Wklvrqvfr monitoringPotassium [facility], KYStart: 28-68-7147Nnjjadena for malignant neoplasm of colonFIT/FOBT: Average riskWayne HealthCare Main Campusart: 30-26-9065Zktnqm TherapyStatin TherapyUniversity Hospitals [facility] Center, KYStart: 29-92-8889PpcglUniversity Hospitals [facility], KYStart: 88-98-4272OahpuUniversity Hospitals Geneva [facility] Center, ORStart: 07-01-2020 End: 94-06-4761Dqsaov Visit07/01/2020 Office Visit Cardiology Anshul Irizarry MD [address] [place] [address] [phone] [facility] Cardiology SpecialistStart: 04-10-4110E7O test (Diabetic or Prediabetic)A1C test (Diabetic or Prediabetic)[facility] Work Phone: start: 20-15-9357Eqrdzzkoun monitoringCreatinine [facility] Work Phone: start: 19-21-2842AhB1n (Bld) [Mass fraction]A1C test (Diabetic or Prediabetic)[facility], ORStart: 65-73-7624Rqmsjqruh monitoringPotassium [facility] Work Phone: start: 56-24-0739CtktkUniversity Hospitals Geneva Medical CenterJERRYart: 05-10-2020 A1C test (Diabetic or Prediabetic)A1C test (Diabetic or Prediabetic)[facility] [employer] Work Phone: start: 28-62-2693Ulhmtacxnh monitoringCreatinine monitoringKettering Health Behavioral Medical Center Health Work Phone: start: 75-65-5060Unlkbcnqn monitoringPotassium monitoringSt. [facility] Work Phone: start: 22-04-8271CzzckUniversity Hospitals Geneva Medical CenterJERRYOld [place]: 04-23-2020 Patient EducationHealth Information for You: MedlinePl~[facility] Work Phone: Start: 35-48-0032Zbbzkwjae vaccinationUniversity Hospitals [facility] Center, JERRYOld Forge: 01-08-2020 End: 76-53-2127Fuxqhh Visit01/08/2020 Office Visit Cardiology Anshul Irizarry MD [address] [place] [address] [facility] Cardiology SpecialistStart: 08-22-2019 End: 68-86-6148Yiffu Neurology SpecialistStart: 07-25-2019 End: 69-00-7347Unvwoqv-INRUniversity Hospitals [facility], JERRYStart: 07-03-2019 End: 58-96-1194Vrxklggv EncounterSTVZ CVORComment on above:CABG CORONARY ARTERY BYPASS X2; AORTIC VALVE REPLACEMENT, ON PUMP, JESSICA GUAMAN TEEStart: 06-29-2019 End: 31-87-7993UwjkdhztzteBltms Health [facility] LabStart: 06-25-2019 Annual Wellness Visit (AWV)Annual Wellness Visit (AWV)[facility] CampusStart: 84-81-0860KwdfsUniversity Hospitals [facility], JERRYart: 05-30-2019 End: 98-85-4585Ynlnnsz encounter eqyprfudp15/08/2020 Office Visit Cardiology Anshul Irizarry MD [address] [place] [address] [phone] [facility] Cardiology SpecialistStart: 55-72-0602Jlciat Wellness Visit (AWV)Annual Wellness Visit (AWV)[facility] CenterAscade Work Phone: start: 03-53-7148Wspiwlk [facility] HealthcareHealth Information for You: MedlinePl~[facility] Work Phone: Start: 08-68-3721Yihhzoakl vaccinationFlu vaccine (#1) [facility] [employer] Work Phone: start: 43-11-8024SnkwiAlexander, KYStart: 12-20-2017 Pneumococcal 50+ years Vaccine (2 of 2 - PPSV23)Pneumococcal 50+ years Vaccine (2 of 2 - PPSV23)[facility] HospitalStart: 35-12-7383Qhonftnalwnn 65+ years Vaccine (2 - PPSV23 or PCV20)Pneumococcal 65+ years Vaccine (2 - PPSV23 or PCV20)[facility] CampusStart: 72-08-8421Fyqaixsxugqu 65+ years Vaccine (2 of 2 - PPSV23 or PCV20)Pneumococcal 65+ years Vaccine (2 of 2 - PPSV23 or PCV20)[facility] HOSPITALStlake hill: 41-46-3163Glyjlwtixeep Vaccine: 65+ Years (2 of 2 - PPSV23 or PCV20)Pneumococcal Vaccine: 65+ Years (2 of 2 - PPSV23 or PCV20)[facility] CenterStart: 52-63-6673WOEQ (modify frequency per FRAX score)DEXA (modify frequency per FRAX score)[facility] CenterPreferred [employer] Phone: start: 88-97-3284Lytpkwtpzian 65+ years Vaccine (1 of 1 - PPSV23)Pneumococcal 65+ years Vaccine (1 of 1 - PPSV23)[facility] CenterPref[facility] [employer] Phone: start: 56-61-6198Drwwkayqhnmo 65+ years Vaccine (2 of 2 - PPSV23)Pneumococcal 65+ years Vaccine (2 of 2 - PPSV23)[facility] CenterPref[facility] [employer] Phone: start: 73-07-0380EnrjtMercy Health [facility]: 2008 Respiratory Syncytial Virus (RSV) or age 60 yrs+ (1 - 1-dose 60+ series)Respiratory Syncytial Virus (RSV) or age 60 yrs+ (1 - 1-dose 60+ series)VANNESA LORA [facility]: 83-99-3315Carztywcn for osteoporosisDEXA (modify frequency per FRAX score)[facility]: 06-97-7019Iowyeorbcauirs of varicella zoster vaccineZoster (Shingles) Vaccine (1 of 2)[facility] [employer] [facility] Hospitaltart: 44-21-8922Rwlfxd cancer screenBreast cancer screenDayton Children'S HospitalAmadesa Phone: start: 36-02-6639Ykouk cancer screen colonoscopyColon cancer screen colonoscopyKettering Health Behavioral Medical Center [employer] Phone: start: 40-80-9348Plmtatnwa for malignant neoplasm of breastBreast cancer screenVan Wert County Hospital: 07-77-2683Hmzcueqtg for malignant neoplasm of colonColon cancer screen colonoscopyMercy Health [facility]: 16-78-5018Kclvxcct Vaccine (1 of 2)Shingles Vaccine (1 of 2)[facility]: 60-25-9800PgfhoMercy Health [facility]: 06-72-3098Qrepjsixt for malignant neoplasm of colonVan Wert County Hospital: 87-36-1207Xnqdv screenLipid screenKettering Health Behavioral Medical Center [employer] Phone: start: 77-52-9551UAlL,Tdap and Td Vaccines (1 - Tdap) DTaP,Tdap and Td Vaccines (1 - Tdap)[facility] [employer] [facility] Hospitaltart: 12-09-1969 DTaP/Tdap/Td vaccine (1 - Tdap)DTaP/Tdap/Td vaccine (1 - Tdap)[facility]: 26-53-8294Ssqnzqmxz B vaccine (1 of 3 - Risk 3-dose series)Hepatitis B vaccine (1 of 3 - Risk 3-dose series)[facility] [employer] Phone: start: 34-68-5324GyuimMercy Health [facility]: 1966 Adult BMI Follow Up PlanAdult BMI Follow Up PlanCincinnati VA Medical CenterComticatart: 85-16-9421Kwcrziqplx ScreenDepression ScreenDayton Children'S HospitalReliOnStart: 12[birth year]09-1959 DTaP/Tdap/Td vaccine (1 - Tdap)DTaP/Tdap/Td vaccine (1 - Tdap)[employer] Phone: start: 59-05-3297Kjmnh [employer] LimitedCOX WALN[facility] LAWN Prime FocusStart: 1958 A1C test (Diabetic or Prediabetic)A1C test (Diabetic or Prediabetic)[employer] Phone: start: 56-70-7170JLnF/Tdap/Td Vaccines (1 - Tdap) DTaP/Tdap/Td Vaccines (1 - Tdap)[facility] CenterStart: 77-33-9707Ymallzahcf monitoringCreatinine monitoringDayton Children'S HospitalAmadesa Phone: start: 79-78-4740Gdyebxgjn C screenHepatitis C screen [facility] CenterPreferred [facility] Investments Phone: start: 07-19-1949Medicare Annual Wellness Visit Medicare Annual Wellness VisitCincinnati VA Medical CenterComticatart: 91-38-3961Qsjlfltgm monitoringPotassium monitoringDayton Children'S HospitalAmadesa Phone: start: 82-50-3091Ujhdmbdxm for malignant neoplasm of colonNOMS HealthcareABG drawABG draw Respiratory Care Routine Daily until discontinued starting 06/25/2019Day[facility] Children'S HospitalAmadesa Phone: comment on above:Daily until discontinued starting 06/25/2019Albumin [Mass/volume] in Serum or PlasmaFisher-Titus Medical CenterAlbumin/Globulin ratioFisher-Titus Medical CenterBasic metabolic 2000 panelUniversity Hospitals [facility] Center, ORBIPAPMOur Lady of Mercy Hospital - [facility], [place] End: 21-30-1338WTQJA BANK [facility], [place] End: 41-74-2103ECCROPrairie St. [facility], ORCardiac catheterization Cardiac Catheterization Cardiac Cath Routine 06/06/2019 10:52 AM ESTOhioHealth End: 80-34-1301Llwdgbu event monitorCardiac event monitor Cardiac Services Routine Palpitations 1 Occurrences starting 09/07/2021 until09/07/2021Day[facility] Children'S HospitalAmadesa Phone: Comment on above:1 Occurrences starting 09/07/2021 until 09/07/2021BCUniversity Hospitals [facility], KYContinuous pulse oximetryPulse oximetry, continuous Respiratory Care Routine Every 4hr until discontinued starting 09/01/2023 [facility] MEDICAL [email or web address] [facility] on above:Every 4hr until discontinued starting 09/01/2023EKG 12 LeadDayton Children'S HospitalAmadesa Phone: electrophoresis: xokkj-4-nyypohuhHenjjpmsmFisher-Titus Medical CenterElectrophoresis: bcldu-7-xlrqkgbqWzvytxatvFisher-Titus Medical Center Electrophoresis: beta-globulinFisher-Titus Medical CenterElectrophoresis: gamma globulinFisher-Titus Medical Center End: 62-62-9952Jjp Tidal CO2 ContinuousEnd Tidal CO2 Continuous Respiratory Care Routine Continuous until discontinued starting 09/01/2023 [facility] on above:Continuous until discontinued starting 09/01/2023Globulin [Mass/volume] in [facility] HospitalHemoglobin and Hematocrit, Blood, Post TransfusionUniversity Hospitals [facility], KYIgA [Mass/volume] in Serum or PlasmaFisher-Titus Medical CenterIgG [Mass/volume] in Serum or [facility] HospitalIgM [Mass/volume] in Serum or Plasma [facility] CenterImmunofixation for UrineFisher-Titus Medical CenterInitiate Oxygen Therapy ProtocolUniversity Hospitals [facility], KYKappa light chains.free [Mass/volume] in [facility] HospitalKappa light chains.free/Lambda light chains.free [Mass Ratio] in [facility] HospitalLambda light chains.free [Mass/volume] in Serum or [facility] Arms HospitalMagnesium [Mass/Vol][facility], KYOxygen therapy [Minimum Data Set]Initiate Oxygen Therapy Protocol Respiratory Care Routine As Needed until discontinued starting 09/01/2023ON [facility] on above:As Needed until discontinued starting 09/01/2023 End: 22-77-7785Aevguoaygphq coronary interventionBON [facility] on above:One Time for 1 Occurrences starting 08/17/2023 until 08/17/2023 Phosphate [Mass/Vol][facility], ORPlatelets (Bld) [#/Vol][facility], ORPOCT GlucoseUniversity Hospitals Geneva [facility] Center, [place] End: 82-03-9442GRZEOHP RBC (CROSSMATCH), 1 UnitsUniversity Hospitals Geneva Medical Center, [place] End: 93-09-7062CSMFAZP RBC (CROSSMATCH), 2 UnitsUniversity Hospitals Geneva Medical Center, [place] End: 17-26-9946JGBCXDST SPECIMENUniversity Hospitals [facility], ORPREVIOUS SPECIMENUniversity Hospitals [facility], ORProtein [Mass/volume] in Serum or PlasmaFisher-Titus Medical CenterProtime-INRUniversity Hospitals [facility], ORRenal function 2000 panel - Serum or PlasmaVeterans Health Administrationerum immunofixationFisher-Titus Medical Center End: 43-88-7687GBA clinical swallow evaluationUniversity Hospitals Geneva [facility] Center, [place] End: 98-47-3137XEJ clinical swallow evaluationAlexander, KYSTRESS TEST REPORTSTRESS TEST REPORT Cardiac Services Ordered: 09/28/2023ON [facility] on above:Ordered: 09/28/2023Surgical PathologyWexner Medical Center Immunizations Immunization DateImmunizationNotesCare GpcycksjEoorjuxb52-26-2207icobft vaccine recombinantGrayson Hernandez MD Work Phone: [facility] CenterDmxhsoftez37-88-2651Gjibfwin 50 MCG/0.5ML vaccine Grayson Hernandez MD Work Phone: [facility] CenterJiztsumoem58-43-3811estevp vaccine recombinant Grayson Hernandez MD Work Phone: [facility] CenterTkguzubdlk28-38-5460Ythjxyv Bivalent Booster VaccinationShannen Velazquez RN Work Phone: [facility] CenterIjhufstpan73-68-8805KXMWO-59, mRNA, LNP-S, PF, 100mcg/0.5mL DosePaSelect Specialty Hospital02-01-2022influenza, high dose seasonal, preservative-freeWhite River Medical Center02-01-2022 influenza virus vaccine, unspecified formulationWhite River Medical Center12-06-2021COVID-19, mRNA, LNP-S, PF, 100mcg/0.5mL DosePafavio Hankins RN [facility] HospitalJgaqqj99-29-7060IFJYX-27 Vaccine Moderna - Documentation Purposes OnlyThomas Felter Other [facility]03-13-2021COVID-19 Vaccine Moderna - Documentation Purposes OnlyThomas Felter Other [facility]10-10-2020influenza, injectable, quadrivalent, preservative freePaige Cr [facility] 26-04-2499Kogkiktj, quadrivalent, recombinant, injectable influenza vaccine, preservative freeAlma Cr [facility]11-03-2018influenza, high dose seasonal, preservative-freePafavio Cr [facility]11-03-2018 influenza, injectable, quadrivalent, preservative freeAlma Hankins RNSaint Joseph Health CenterKfwvhezkwo05-29-8585qnlifgytvjui conjugate vaccine, 13 valentPafavio Hankins RN [facility] HospitalGqgkpl66-03-4062jvpsgopbk, injectable, quadrivalent, preservative freePaige Cr [facility]01-01-2016influenza, seasonal, injectablePhilip Stefano Chang [facility] PhysiciansComment on above:Note: Invalid documented admin date was /. ; Source: Other Provider Payers DatePayer CategoryPayerPolicy [id number] 2024Self-pay 2023Medicare (Managed Care)[id number] [id number] [id number] 2020MedicareMEDICARE MEDICARE PART A & B [id number] 2019-Present [id number] [id number] 2020 MedicareMEDICARE PFFS MEDICARE HMO/PPO/PFFS MISC* [id number] 2019- [id number] 2020Medicare [id number] 2018Medicarexxxxxxxxxxx [id number] Medicarexxxxxxxxx [id number] 1960Medicare [id number]-[id number] 2.0.1.795435.3.57[id number] 2.0.1.859489.3.57[id number] 2.0.1.068789.3.57[id number] 2.0.1.418364.3.57[id number] 2.0.1.160368.3.57[id number] 2.840.1.371904.3.57[id number] 2.840.1.270128.3.57[id number] 2.16840.1.203327.3.57[id number] 2.16840.1.405218.3.57[id number] 2.16840.1.732621.3.57[id number] 2.16840.1.775734.3.57[id number] 2.16840.1.818812.3.57[id number] 2.16840.1.450164.3.57[id number] 2.840.1.873735.3.57[id number] 2.16840.1.259420.3.57[id number] 2.840.1.537516.3.57[id number] 2.840.1.040367.3.57[id number] 2.840.1.007291.3.57[id number] 2.16840.1.231979.3.57[id number] 2.16840.1.913923.3.57[id number] 2.16840.1.912232.3.57[id number] 2.16.840.1.590300.3.57[id number] 2.16.840.1.478884.3.57[id number] 2.16.840.1.409931.3.579.2.[id number] 2.16.840.1.466881.3.57[id number] 2.16.840.1.873245.3.579.2.[id number] 2.16.840.1.264041.3.579.2.[id number] 2.16.840.1.871224.3.57[id number] 2.16.840.1.8895[id number] 2.16.840.1.109114.3.579.2.531 [id number] 2.16.840.1.885722.[id number] 2.16.840.1.317393.3.579.2.531 Social History DateTypeDetailFacilityStart: 06-06-2019 End: 54-51-5853Povzzdb smoking status NHISNever smokerOhioHealthStart: 06-06-2019 End: 91-69-9064Knjphkw intakeEx-drinker (finding)New YorkHealthStart: 07-35-9061Jwb Assigned At BirthNot on [facility] [employer] Phone: start: 06-25-2019 End: 73-23-8283Xdfnkbg intakeLifetime non-drinker (finding)[facility] [employer] Phone: start: 76-12-6939Fsoqyil SDOH Alcohol Pkkjxfcjb3Yoxlz [employer] Work Phone: start: 02-25-2020 End: 43-65-9007Wgqwyem use and exposureNever usedSt. [facility]'S [facility] [facility]- [place]Start: 02-28-2023 End: 86-07-7203Wyl Assigned At [facility] [employer] Other Start: 06-07-2023 End: 51-38-9461Ogliuqv intakeCurrent drinker of alcohol (finding)[facility] Start: 06-07-2023 End: 59-16-2424Sfpwivr intakeNOMS HealthcareDo you belong to any clubs or organizations such as zoroastrian groups, unions, fraternal or athletic groups, or school groups?YesNOMS HealthcareAre you now , , , , never or living with a partner?MarriedNOMS HealthcareHow often to you have a drink containing alcohol?Monthly or lessNOMS HealthcareHow many standard drinks containing alcohol do you have on a typical day?1 or 2NOMS HealthcareHow often do you have 6 or more drinks on 1 occasion?NeverNOMS HealthcareStart: 37-51-2323Eyb hard is it for you to pay [...] the mortgage or rent on time?NoNOMS HealthcareStart: 62-34-9610Tozavtsvr50BLVT HealthcareStart: 03-24-0007Feehbhn CommentCaffeine: 2-4 cupsNOMS HealthcareStart: 04-11-2024 End: 43-14-0542NohIijkahx sex unknown (finding)[facility] Start: 36-63-8768Ckx Assigned At [facility] Start: 75-44-7772Hljkqte intake (observable entity)Alcohol Use DetailsCVP PhysiciansStart: 04-17-2019 End: 48-28-8173OovJvaodz (finding)[facility] CenterNEGATED: Highlighted rowStart: 05-02-5090Hcyahoh smoking status NHISUnknown if ever smokedCVP PhysiciansNEGATED: Highlighted rowStart: 76-06-9343Antfsmp of tobacco useCurrent non-smokerCVP Physicians Medical Equipment Procedure CodeEquipment CodeEquipment Original TextEquipment IdentifierDates Closure Starclose Se - [id number], [id number] FDAStart: [id number]_svqZcxjg: [id number]_pipDcgbo: 87-24-7522267908_malNiwdz: 74-87-2457707454_sahPknax: 81-25-9228Nrvsqgw on above:Description: NO CHARGE PER COURTNEY [id number]_impStart: 43-72-2103Fgjbbuj on above: Description: NO CHARGE PER COURTNEY MENESES AND REP HARITHA [id number]_pxqIfdtk: 08-06-7934Uuqrprk on above:Description: NO CHARGE PER COURTNEY MENESES AND REP. HARITHA [id number]_aztQqpkl: [id number]_xtyYmeex: 36-49-1578780733_tuk Start: 05-51-8263597022_mtqPkgyx: 32-49-6441KZT 1 TO CHECK GLUCOSE ONCE DAILY [id number]: each by Other route if needed.[id number]: each by Other route [id number]: 09-01-2023 End: Lancet [id number]: 11-30-2023 End: each by Other route [id number]: 11-12-2024 End: Lancet [id number]: 01-29-2025 End: 03-05-2026 Goals DatePatient GoalDesired Activity/StatePersonal health goalComment on above: Evaluation of progress towards goal: patient plans for a safe discharge home with self care and support from and son. Functional Status NrlvAhbuvmayiqZldvauWbzjqytj97-99-1463Fwilvot Health Questionnaire 2 item (PHQ- 2) [Reported][facility] CenterHlzuodbemu54-44-5103Hskxshw Health Questionnaire 2 item (PHQ- 2) [Reported][facility] Clinical Notes 06-23-2019 to 03-11-2025 Note Date & JyjaHhgsZfltklwi43-40-1462 Evaluation note* Diagnosis Onset Date Resolution Status Admit Date Urinary incontinence acuteOctober 2024 12:14pm [facility] Work Phone: [phone] 397-265510-14-2025 History of Present illness Narrative* Grayson Hernandez [...] 100 each 3 Lancets (OneTouch Delica Plus Benwpv97B) misc 1 Lancet Daily 100 each 3 [...] without long- term current use of insulin ([facility]) Chronic problem, stable, diabetes to goal. While she is still in stage IIIB her kidney function is slightly better. 5. Anemia due to stage 3b chronic kidney disease ([facility]) Chronic problem, stable, monitor longitudinally. - ferrous [...] diastolic congestive heart failure, NYHA class 1 ([facility]) Chronic problem, stable, overall doing well. - [...] substitutions may have occurred. documented in this encounterSaint Joseph Health CenterMcokdwgegv57-56-0829 History of Present illness Narrative* Shannen Velazquez [...] PM EDT Prescription sent documented in this encounterSaint Joseph Health CenterRuzidhfmzb74-58-2390 History of Present illness Narrative* Jorge Luis [...] Next Visit: 1 year documented in this encounterSaint Joseph Health CenterXklyumonxi71-57-4455 Telephone encounter Note* Telephone Encounter - Nguyen Flores - 10/01/2024 12:59 PM EDT Was contacted and was noted that they had received all the information needed and they were going to call Eleanor to schedule Home Health PT. [facility] CenterRtltwosjxn31-88-0943 Miscellaneous Notes* Telephone Encounter - Nguyen Flores - 10/01/2024 12:59 PM EDT Was contacted and was noted that they had received all the information needed and they were going to call Eleanor to schedule Home Health PT. documented in this [facility]05-12-2025 Telephone encounter Note* Telephone Encounter - Nguyen Flores - 10/01/2024 11:05 AM EDT Sent referral for PT to [facility] for HELENE Magaña. Then called Martha back noting she should be receiving a phone call to set-up Home Health, per PT recommendation. [facility] CenterIowglzqyff97-09-7659 Miscellaneous Notes* Telephone Encounter - Nguyen Flores - 10/01/2024 11:05 AM EDT Sent referral for PT to [facility] for HELENE Magaña. Then called Martha back [...] it would be with. documented in this [facility]05-12-2025 Telephone encounter Note* Telephone Encounter - Nguyen Flores - 10/01/2024 9:13 AM EDT He called re: at her Eval he said that an In-Home therapist was recommended and was calling to check on that and the status of whom it would be with. [facility] Beobehmksf30-49-6708 History of Present illness Narrative* Grayson Hernandez MD - 09/18/2024 4:30 PM EDT Images from the original note were not included. Patient ID: Eleanor Mcclain is a 73 y.o. female who presents for: Copied from [facility] Note: Progress Notes Shannen Velazquez, [...] not eating enough I did have my clinical specialist medical device come in the room and we put [...] before supper 90 tablet 1 glucose blood (Stop Being Watcheduch Ultra) test strip 1 each by Other route Daily 100 each 3 ipratropium (Atrovent) 0.06 % nasal spray Administer 2 sprays into each nostril in the morning and 2 sprays at noon and 2 sprays in the evening and 2 sprays before bedtime. 15 mL 0 Lancets (nuvoTVTouch Delica Plus Rdrhvx82K) misc 1 Lancet Daily 100 each 3 levothyroxine (Synthroid, Levoxyl) 88 MCG tablet Take 1 tablet (88 mcg) by mouth Daily 90 tablet 1 magnesium 200 MG tablet Take 200 mg by mouth in the evening. snknwces-vofyzhdre-dalXXPKVjtkpm (Maxitrol) 0.1 % ophthalmic suspension 1 drop to affected eye 3 times daily for 7 days. 5 mL 0 No current facility-administered medications on file prior to visit. 1. Generalized weakness This is certainly worsened, truly to the point she should either be an assisted living or potentially ultimately a halfway. I am not sure of her safety [...] Future I certify that I had a tvdf-vr-qmsk encounter with this patient at todays office visit. Due to thismedical condition the patient requires Physical therapy. I certify that based on my findings The physical therapy ordered is medically necessary for this patient. This has been discussed with the patient and/or their guest service representative and mutually agreed upon. 3. [...] hyperglycemia, without long-term current use of insulin ([facility]) I did discuss with him that without [...] about either some protein shakes or even [place] instant breakfast with some ice cream to make a milkshake if she is interested. documented in this encounterSaint Joseph Health CenterPkgzmxesmr27-76-4146 History of Present illness Narrative* Grayson Hernandez MD - 09/05/2024 2:30 PM EDT Images from the original note were not included. Patient ID: Eleanor Mcclain is a 73 y.o. female who presents for: Flowsheet Row Patient Outreach from 08/29/2024 in [facility] with Shannen Velazquez RN Hospital Information ED, Hospital or Fpc Facility Discharge? ED Patient has been contacted within 2 days of being seen in the ED Yes Diagnosis Fall from Standing, Laceration of scalp, chronic renal disease, stapled skin wound, Fracture of nasal bone Discharge Date 08/29/24 Discharged To: Home Setting Discharge Hospital [facility] Engagement Call Start Time 1540 Admission Date 08/29/24 Medications Discharge medications reviewed [...] the left parietal region of the scalp. [place] appear intact and wound is approximated and [...] before supper 90 tablet 1 glucose blood (Stop Being Watcheduch Ultra) test strip 1 each by Other route Daily 100 each 3 ipratropium (Atrovent) 0.06 % nasal spray Administer 2 sprays into each nostril in the morning and 2 sprays at noon and 2 sprays in the evening and 2 sprays before bedtime. 15 mL 0 Lancets (nuvoTVTouch Delica Plus Uiqwga54W) misc 1 Lancet Daily 100 each 3 [...] transition of care note is reviewed. a yycv-yk-chcb evaluation is done today. Medical decision making [...] with the adjustment in their medication. - vcsfjtzf-wlcsloxpe-zutZMWJZpuzwj (Maxitrol) 0.1 % ophthalmic suspension; 1 drop to affected eye 3times daily for 7 days. Dispense: 5 mL; Refill: 0 documented in this [facility]04-14-2025 Telephone encounter Note* Telephone Encounter - Pauly Huber MA - 09/03/2024 3:43 PM EDT NATALIE and Shannen just do you know her Sept is HTN HLD DM and she needs a November Sleep Memory OV. Shehas too many problems to be doing everything in one visit [facility] Bcsmnbinbo88-36-4211 History of Present illness Narrative* Shannen Velazquez RN - 09/03/2024 12:34 PM EDT Spoke with Howard, pt needs rx for ARIPiprazole and Donepezil to [facility] documented in this [facility]04-01-2025 Miscellaneous Notes* Telephone Encounter - Pauly Huber MA - 09/03/2024 3:43 PM EDT Trudi just do you know her Sept is HTN HLD DM and she needs a November Sleep Memory OV. Shehas too many problems to be doing everything in one visit documented in this [facility]03-31-2025 History of Present illness Narrative* Grayson [...] 30 tablet 0 Blood Glucose Monitoring Suppl (DXY ULTRA 2) w/Device kit USE ONCE DAILY [...] before supper 90 tablet 0 glucose blood (Moodswing Ultra) test strip 1 each by Other route Daily 100 each 3 ipratropium (Atrovent) 0.06 % nasal spray Administer 2 sprays into each nostril in the morning and 2 sprays at noon and 2 sprays in the evening and 2 sprays before bedtime. 15 mL 0 Lancets (OneTouch Delica Plus Afggrw36H) [facility] 1 Lancet Daily 100 each 3 levothyroxine [...] due to type 2 diabetes mellitus (HCC) ([facility]) Chronic problem that is stable for now. They have had multiple previous opportunities to be referred to Nephrology and I have chosen not to. - Comprehensive metabolic panel; Future - Comprehensive metabolic panel 7. Type 2 diabetes mellitus with hyperglycemia, without long-term current use of insulin ([facility]) Chronic problem continue current treatment. 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 OU assessment Presence of intraocular lens Jun impression Presence of intraocular lens: Z9 6.1 [facility] Work Phone: [phone] History of Present illness Narrative* Encounter Date [...] both eyes. no noticeable change in vision Lft-09-7646nrnlt pressureThe patient's blood pressure was at 132/ 74. blurry visionThe patient complains of blurry vision in the right eye and left eye. It started about 1 year ago .The onset was gradual. It affects both near and far vision. The symptom is infrequent.Gfu-35-7228EBVSzb 63 year old female presents for evaluation of JRTMiq-06-8536pvjitc pmtssrLxk-30-8130tughzc vision Pvo-90-1751GgdrhaKeeisf A1C was 6.2. BS today 176. BP today was 142/80. Ikq-58-7990rgzkuqryq in visionThe patient complains of a decrease in vision in the right eye and left eye for months. The onset was gradual. It affects near vision. The symptom is constant. It occurs all the time. The condition is mild. The condition is described as blurring. In addition, the condition is associated with reading.Org-96-5330dxybata cystKatjudd Mcclain is a 62 year old female that presents for a follow up with a history of a macular cyst in the left eye and PROCEDURE TECH in both eyes. [facility] Work Phone: [phone] 303-831802-14-2025 Instructions* Date Instruction Additional Infor cristi 12mth [...] Return in 1 year wit h Naveen Dceker MD for follow up and OCT Related [...] compliance from a retinal standpoint with the PCP/General I Farmworker. Appropriate follow up with primary eye veterinarian laboratory animal care was recommended. Letter sent to PCP. [...] compliance from a retinal standpoint with the PCP/General I Farmworker. Appropriate follow up with primary eye veterinarian laboratory animal care was recommended. Related to Type 2 [...] bilateral - Will continue to monitor. Rela agnely to Secondary pigmentary degeneration of retina - [...] from a retinal standpoint and with the PCP/General I Farmworker. Diabetic retinopathy book given to patient. Related to Background diabetic retinopathy - Discussed ocular a nd systemic benefits of blood sugar control as well as the importance of follow up compliance from a retinal standpoint and with the PCP/General I Farmworker. Related to Diabetes with ophthalmic manifestations, type II o - Return in 1 year w [facility] Dr. Smith for follow up exam [...] from a retinal standpoint and with the PCP/General I Farmworker. Related to Diabetes with ophthalmic manifestations, type II o - Return in 1 year w [facility] Dr. Smith for follow up and OCT. [...] from a retinal standpoint and with the PCP/General I Farmworker. Diabetic retinopathy book given to patient. Related to Background diabetic retinopathy Diabetes with ophtha lmic manifestations, type II Condition: established. - Discussed ocular and systemic benefits of blood sugar control as well as the importance of follow up compliance from a retinal standpoint and with the PCP/General I Farmworker. Related to Diabetes with ophthalmic manifestations, type [...] from a retinal standpoint and with the PCP/General I Farmworker. Related to Background diabetic retinopathy Retinal hemorrhage O U Condition: established, stable. - Will continue to monitor. 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 - Advised patient to keep all follow up appointments with Dr. Hardy. Related to Senile nuclear sclerosis [facility] Work Phone: [phone] Telephone encounter Note* Telephone Encounter - Grayson [...] give me an update next week. [facility] Zobxyjqjxp15-08-1912 Miscellaneous Notes* Telephone Encounter - Grayson Hernandez [...] AM EST Howard called, he stated that Kaetlyn's hands have been very swollen. Her left hand is worse than the right. He had her take her rings off and had a struggle getting them off. He is not sure what to do but wanted to run it by Dr. Hernandez. documented in this encounterSaint Joseph Health CenterSkjtphsgxv27-22-7482 Telephone encounter Note* Telephone Encounter - Maria Dolores Hare - 06/04/2024 9:49 AM EST Howard called, he stated that Katelyn's hands have been very swollen. Her left hand is worse than the right. He had her take her rings off and had a struggle getting them off. He is not sure what to do but wanted to run it by Dr. Hernandez. [facility] CenterEcptvxjcjf00-68-5315 Telephone encounter Note* Telephone Encounter - Grayson [...] in his it is a controlled substance. [facility] CenterWngaqehafc10-84-5897 Miscellaneous Notes* Telephone Encounter - Grayson Hernandez [...] is a controlled substance. documented in this encounterSaint Joseph Health CenterWkxtmhptap77-39-4929 History of Present illness Narrative* Grayson Hernandez [...] mouth Daily 90 tablet 1 glucose blood (nuvoTVTouch Ultra) test strip 1 each by Other route Daily 100 each 3 ipratropium (Atrovent) 0.06 % nasal spray Administer 2 sprays into each nostril in the morning and 2 sprays before bedtime. 15 mL 0 Lancets (nuvoTVTouch Delica Plus Inqzcq56U) misc 1 Lancet Daily 100 each 3 [...] 6. Overweight (BMI 25.0-29.9) documented in this encounterSaint Joseph Health CenterZklxqxjhas96-35-9688 Radiology Diagnostic study [facility] [place] [address] [place] [address] Ultrasound Report Signed Patient: Eleanor Mcclain MR#: [id number] : 1950 Acct:[id number] Age/Sex: 73 / F ADM Date: 4 Loc: Room: Type: [facility] Attending Dr: Morgan Womack MD Ordering Provider: [...] Pastrana Jr., D.OGina04/10/2024 3:04 PM Dictation Location: [place] [address] Tech: Susan Christinasybette Transcribed By: CATA 04/10/24 1504 Dictated By: Shant Pastrana Jr, 04/10/24 1503 Signed By: 04/10/24 1504 [facility]10-17-2024 Evaluation note* Diagnosis Onset Date Resolution Status Admit Date Anemia of renal disease acuteOctober 2023 1:21pmCKD (chronic kidney disease) stage 4, GFR 15-29 ml/minacuteOctober 2023 1:21pmHypertensive chronic kidney disease with stage 1 through stage 4 chronic kiacuteOctober 2023 1:21pmSecondary hyperparathyroidismacuteOctober 2023 1:21pmType 2 diabetes mellitus with diabetic chronic kidney diseaseacuteOctsouthern [facility] 2023 1:21pm [facility] Work Phone: [phone] History of Present illness Narrative* Grayson Hernandez [...] identify problems with changes in short and orthotics assistant memory. Family and patient report problems with [...] mouth Daily 90 tablet 1 glucose blood (Stop Being Watcheduch Ultra) test strip 1 each by Other route Daily 100 each 3 ipratropium (Atrovent) 0.06 % nasal spray Administer 2 sprays into each nostril in the morning and 2 sprays before bedtime. 15 mL 0 Lancets (nuvoTVTouch Delica Plus Aknkct55K) misc 1 Lancet Daily 100 each 3 [...] of evaluation and management. documented in this encounterSaint Joseph Health CenterStaatblied07-83-4427 History of Present illness Narrative* Shannen Velazquez RN - 02/10/2024 10:00 AM EDT <February 10, 2024, 10:01 - Shannen Velazquez RN> received call from pt's , Howard that he received a call from [facility], that they are unable to fill medication, pt was on auto refill but needs to see the doctor before it can be filled. Called Adrian, discussed Rx's needed. <February 10, 2024, 10:12 - Shannen Velazquez RN> Called Howard, notified that CM spoke to [facility] pharmacy. It was Atorvastatin that was needed. Cardizem is due also. Will request rx's * Grayson Hernandez MD - 02/10/2024 10:00 AM EDT RX sent documented in this encounterSaint Joseph Health CenterBqeelcgnpn77-31-2620 Miscellaneous Notes* Telephone Encounter - Grayson Hernandez MD - 01/24/2024 1:37 PM EDT RX sent documented in this encounterSaint Joseph Health CenterUfckopcaht44-42-5986 Telephone encounter Note* Telephone Encounter - Grayson Hernandez MD - 01/24/2024 1:37 PM EDT RX sent [facility] CenterSxcrqcowel35-13-4983 History of Present illness Narrative* Larissa Weathers [...] snack and beverage provided. documented in [facility]CAR[facility] History of Present illness Narrative* Tameka [...] responsible adult. Yes documented in [facility] encounterB[facility] Discharge instructions* Discharge Instructions* Tameka Adan [...] your doctor if you can take an soxh-fdc-rjawokb medicine. If you think your pain medicine [...] or uneven pulse. After calling 911, the retread mold operator may tell you to chew 1 [...] Where can you learn more? Go to [email or web address] and sign in to your [employer] account. Enter G817 in the Search Health Information box to learn more about Sedation for a Medical Procedure: Care Instructions. If you do not have an account, please click on the Sign Up Now link. [facility]. Care instructions adapted under license by [employer]. This care instruction is for use with your licensed healthcare professional. If you have questions about amedical condition or this instruction, always ask your healthcare professional. [facility] disclaims any warranty or liability for your use of this information. Content Version: 10.6.520998; Current as of: January 29, 2014 documented in this encounterBON [facility]02-12-2024 Miscellaneous Notes* Telephone Encounter - Portia Osorio - 07/04/2023 8:14 AM EST What is the reason for the call? Patients needs to cancel the appt for tomorrow and reschedule. They have other commitments at this time. What is a good call back number? Martha- [phone] * Telephone Encounter - Beth Flores CMA [...] to see Dr Monroy. documented in this encounterBrown [facility]02-12-2024 Telephone encounter Note* Telephone Encounter - Portia Osorio - 07/04/2023 8:14 AM EST What is the reason for the call? Patients needs to cancel the appt for tomorrow and reschedule. They have other commitments at this time. What is a good call back number? Sydnee [phone] [facility] [employer] [id number] Telephone encounter Note* Telephone Encounter - Beth Flores CMA - 07/04/2023 8:14 AM EST Called Martha back to resched tmrw's apt. Unavailable; LVM and call back number [facility] [employer] [id number] Telephone encounter Note* Telephone Encounter - Larissa Kim - 07/04/2023 8:14 AM EST Spoke with Martha, he spoke with pcp and that doctor is going to take responsibility for the patients care/treatment needed and no longer wishes to see Dr Monroy. [facility] [employer] Ilkqcs48-09-0515 Miscellaneous Notes* Telephone Encounter - Alma Hankins [...] spouse and scheduled appt documented in this encounterBrown [facility] Hospital01-08-2024 Telephone encounter Note* Telephone Encounter - Alma Hankins RN - 05/30/2023 10:49 AM EST Per May 2023 recall, patient is due for follow up appointment with Dr. Monroy. Please call to schedule with Dr. Monroy or SCHUYLER. [facility] [employer] [id number] Telephone encounter Note* Telephone Encounter - Larissa Kim - 05/30/2023 10:49 AM EST Called patients mobile (belongs to spouse) and left VM Called patients home and left VM [facility] Amorelie01-08-2024 Telephone encounter Note* Telephone Encounter - Nidhi Sepulvedaon - 05/30/2023 10:49 AM EST Patient's nurse called to schedule appointment. Below is the best contact for the patient. Best Contact: Amorelie01-08-2024 Telephone encounter Note* Telephone Encounter - Larissa Kim - 05/30/2023 10:49 AM EST Spoke with patients spouse and scheduled appt [facility] Amorelie02-25-2023 Evaluation note* Encounter Date Diagnosis Assessment Notes Treatment Notes Treatment Clinical Notes Jun, Contact with and (gallagher spected) exposure to other viral communicable diseases [...] weeks for the cough to go away Pansieve Other 04-18-2022 History of Present illness Narrative* Ambika Romero RCP - 09/07/2021 9:30 AM EDT The patient was educated on the use of an event monitor. The patient's comprehension was high. The patient was able to verbalize recall. The patient was instructed on how and when to return the monitor. [facility]: [phone] 564-705001-31-2022 Evaluation note* Encounter Date Diagnosis Assessment Notes [...] educated regarding the risks and benefits of custodial opioid use. She understands the associated risks with this medication and agrees that it provides reasonable benefit in regards to her pain control and level of function. This medication was filled today. May,therAbove note written by Michael Houston CMA, [employer] Salesperson. Edited and approved by Dr. Martha Rendon MD. Pansieve Other 02-01-2020 History general Narrative - Reported* Type Description Date Medical History Hypertension Medical HistoryDiabetesMedical HistoryHypokalemiaSurgical Historyhysterectomy Surgical HistorycholecystectomySurgical Historytriple bypass, valve replacement 06/2019Hospitalization Historysee above Pansieve Other 02-01-2020 History general Narrative - Reported* Type Description Date Medical History Hypertension Medical HistoryDiabetesMedical HistoryHypokalemiaSurgical Historyhysterectomy Surgical HistorycholecystectomySurgical Historytriple bypass, valve replacement 06/2019Surgical Historycataract [id number] Historysee above Pansieve Other Consult note* Clinical Note Date No Information [facility] Work Phone: Discharge summary* Clinical Note Date No Information [facility] Work Phone: Evaluation note* Diagnosis Hypertension, unspecified type Hyperlipidemia, unspecified hyperlipidemia type Other specified diabetes mellitus with other specified complication, unspecified whether custodial insulin use (HCC) Vitamin D deficiency disease Unspecified vitamin D deficiency documented in this encounter [facility] Phone: evaluation note* Diagnosis Hypertension, unspecified type Hyperlipidemia, unspecified hyperlipidemia type Other specified diabetes mellitus with other specified complication, unspecified whether orthotics assistant insulin use (HCC) Vitamin D deficiency disease Unspecified vitamin D deficiency documented in this encounter [facility] Phone: evaluation note* Diagnosis Systolic murmur Undiagnosed cardiac murmurs Moderate mitral regurgitation Mitral valve disorders Severe aortic stenosis Aortic valve disorders documented in this encounter [facility] Phone: evaluation note* Diagnosis Palpitations documented in this encounter [facility] Phone: evaluation note* Diagnosis Diastolic congestive heart failure, NYHA class 1, unspecified congestive heart failure chronicity ([facility]) [facility] Diagnosis Mild mitral stenosis by prior echocardiogram- Primary Mitral stenosis Chronic a-fib ([facility]) Atrial fibrillation documented in this encounter [facility]* Diagnosis SOB (shortness of breath) Shortness [...] class 1, unspecified congestive heart failure chronicity ([facility]/HCC) [facility] Diagnosis Mixed hyperlipidemia ([facility]) Mixed hyperlipidemia [facility]* Diagnosis Primary hypertension ([facility])- Primary Unspecified essential hypertension Mixed hyperlipidemia ([facility]) Mixed hyperlipidemia [facility]* Diagnosis Anxiety associated with depression Dysthymic disorder [facility]* Diagnosis Acquired hypothyroidism ([facility]) Unspecified hypothyroidism Benign essential hypertension ([facility]) Essential hypertension, benign [facility]* Diagnosis Diastolic congestive heart failure, NYHA class 1, unspecified congestive heart failure chronicity ([facility]/H[facility]) [facility]* Diagnosis Primary hypertension ([facility])- Primary Unspecified essential hypertension Chronic diastolic congestive heart failure, NYHA class 1 ([facility]) Mixed hyperlipidemia ([facility]) Mixed hyperlipidemia Hypokalemia Hypopotassemia Hypomagnesemia Disorders of magnesium metabolism Type 2 diabetes mellitus with stage 4 chronic kidney disease, without long-term current use of insulin ([facility]) Type 2 diabetes mellitus with hyperglycemia, without long-term current use of insulin ([facility]) Polypharmacy Issue of repeat prescriptions Edema, unspecified type [facility]* Diagnosis Persistent disorder of initiating or maintaining sleep Vascular dementia with behavior disturbance ([facility]) Chronic organic brain syndrome Unspecified nonpsychotic mental disorder following organic brain damage Encounter for examination following treatment at hospital Encounter for staple removal Fall from standing, subsequent encounter Laceration of scalp, subsequent encounter Closed fracture of nasal bone with routine healing, subsequent encounter Stage 3b chronic kidney disease (HCC) ([facility]) Polypharmacy Issue of repeat prescriptions Overweight (BMI 25.0-29.9) Overweight documented in this encounter [facility]* Diagnosis Acute bacterial conjunctivitis of both eyes- Primary Laceration of scalp, subsequent encounter Fall from standing, subsequent encounter Closed fracture of nasal bone with routine healing, subsequent encounter Encounter for examination following treatment at hospital Encounter for staple removal Polypharmacy Issue of repeat prescriptions Overweight (BMI 25.0-29.9) Overweight Acute conjunctivitis, unspecified acute conjunctivitis type, unspecified laterality documented in this encounter [facility]* Diagnosis Generalized weakness Frequent falls History of falling Polypharmacy Issue of repeat prescriptions Type 2 diabetes mellitus with hyperglycemia, without long-term current use of insulin ([facility]) BMI 23.0-23.9, adult documented in this encounter [facility]* Diagnosis Generalized weakness- Primary Frequent falls documented in this encounter [facility]* Diagnosis Anxiety associated with depression- Primary Dysthymic disorder Primary hypertension ([facility]) Unspecified essential hypertension Chronic diastolic congestive heart failure, NYHA class 1 ([facility]) Edema, unspecified type Acquired hypothyroidism ([facility]) Unspecified hypothyroidism documented in this encounter [facility]* Diagnosis Onset Date Resolution Status Admit Date Anemia of renal disease acuteMay 2024 1:55pmAsymptomatic bacteriuriaacuteMay 2024 1:55pmCKD (chronic kidney disease) stage 4, GFR 15-29 ml/minacuteMay 2024 1:55pm HyperlipidemiaacuteMay 2024 1:55pmHypertensive chronic kidney disease with stage 1 through stage 4 chronic kiacuteMay 2024 1:55pmSecondary hyperparathyroidismacuteMay 2024 1:55pmType 2 diabetes mellitus with diabetic chronic kidney diseaseacuteMay 2024 1:55pm [facility] Work Phone: Evaluation note* Diagnosis Seborrheic keratosis- Primary History of basal cell carcinoma Personal history of other malignant neoplasm of skin Lentigines Other seborrheic dermatitis documented in this encounter [facility]* Diagnosis Mitral valve stenosis, unspecified etiology documented in this encounter [facility]* Diagnosis Hypermagnesemia Disorders of magnesium metabolism [facility] Diagnosis Chronic diastolic congestive heart failure, NYHA class 1 ([facility])- Primary Primary hypertension Unspecified essential hypertension Edema, unspecified type Anxiety associated with depression Dysthymic disorder documented in this encounter [facility]* Diagnosis Primary hypertension- Primary Unspecified essential hypertension Mixed hyperlipidemia Hypokalemia Hypopotassemia Type 2 diabetes mellitus with stage 3b chronic kidney disease, without long-term current use of insulin ([facility]) Anemia due to stage 3b chronic kidney disease ([facility]) Microalbuminuria Proteinuria Paroxysmal atrial fibrillation (HCC) Atrial fibrillation Chronic diastolic congestive heart failure, NYHA class 1 ([facility]) Acute cystitis without hematuria Chronic pruritus Polypharmacy Issue of repeat prescriptions documented in this encounter [facility] HealthcareEvaluation noteNo assessment information availableFostoria City Hospital Work Phone: History and physical note* Clinical Note Date No Information [facility] Work Phone: Hospital Discharge instructions* Attachments The following attachments cannot be sent through Care Everywhere. * Stroke: Know the Signs and BE FAST: Video ([place]izen [place]) documented in this encounterBon Kettering Memorial HospitalInstructionsNot on file documented in this encounterProGerman Hospital SystemInstructionsNot on file documented in this encounterSalem City Hospital SystemProgress note* Clinical Note Date No Information [facility] Work Phone: Rephza for referral (narrative)* Reason For Referral No Information [facility] Work Phone: Rehvrd for referral (narrative)No reason for referral information availableFostoria City Hospital Work Phone: Reason for visit Narrative* Rehabilitation - Outpatient (Routine) - AuthorizedSpecialtyDiagnoses / ProceduresReferred By ContactReferred To ContactPhysical Therapy Diagnoses Generalized weakness Frequent falls Procedures MD OFFICE/OUTPATIENT NEW HIGH MDM 60 MINUTES Grayson Hernandez MD [address] [place] [address] Phone: tel: fax:[phone] Roshan Mayfield, PT [address] [place] [address] Phone: tel: fax: Referral IDStatusReasonStart DateExpiration DateVisits RequestedVisits [id number] Specialty Services Required [facility]kind[facility] for visit Narrative* Imaging (Routine) - ClosedSpecialty Diagnoses / ProceduresReferred By ContactReferred To Contact Diagnoses Mitral valve stenosis, unspecified etiology Procedures Echo (TTE) complete (PRN contrast/bubble/strain/3D) MD ECHO TTHRC R-T 2D W/WOM-MODE COMPL SPEC&COLR D MD TTE W OR WO FOL WCON,DOPPLER Anshul Irizarry MD [address] [place] [address] Phone: tel: fax: Referral IDStatusReasonStart DateExpiration DateVisits RequestedVisits [id number]/17/202412/ [facility] Discharge Instructions * Instructions* Ely Penny [...] will Yes, copy in chart Spouse Martha [id number] Admitting Physician: Caro Teresa MD PCP: Grayson Hernandez MD Discharging Nurse: aniya Discharging Hospital Unit/Room#: 1006/1006-01 Discharging Unit Phone Number: [phone] Emergency Contact: Extended Emergency Contact Information Primary Emergency Contact: DAHLIA MCCLAIN Mobile Relation: Child Secondary Emergency Contact: MARTHA MCCLAIN [address]: [address] [place] [address] Mobile Relation: Spouse Past Surgical History: Past Surgical History: Procedure Laterality Date CABG WITH AORTIC VALVE REPLACEMENT N/A 07/03/2019 CABG CORONARY ARTERY BYPASS X3; AORTIC VALVE REPLACEMENT WITH 21MM INTUITY VALVE, ON PUMP, SWAN SHAWN, LOVE performed by Caro Teresa MD at [facility] CVOR CARDIAC CATHETERIZATION Bilateral 06/06/2019 Possible bypass & aortic valve replacement CHOLECYSTECTOMY COLONOSCOPY CORONARY ARTERY BYPASS GRAFT N/A 07/03/2019 CABG CORONARY ARTERY BYPASS REDO performed by Caro Teresa MD at [facility] CVNY GALLBLADDER SURGERY HC PICC POWERPICC DOUBLE 07/13/2019 HYSTERECTOMY STERNUM DEBRIDEMENT N/A 07/04/2019 STERNUM WASHOUT WITH STERNUM CLOSURE WITH STERNALOCK 360, 12 SELF-DRILLING LOCKING SCREWS 12MM, 4 SELFDRILLING LOCKING SCREWS 14MM. performed by Caro Teresa MD at [facility] CVOR Immunization History: There is no immunization [...] Assisted Dressing Assisted Toileting Assisted Feeding Assisted [employer] Financial Developer Assisted Med Delivery prefers mixed with applesauce [...] carbs/meal (1800kcals/day) Routes of Feeding: Oral Liquids: [place] Thick Liquids Daily Fluid Restriction: no Last [...] applicable) Name: Address: Dialysis Schedule: Phone: Fax: Acid Adjuster/Business Associate signature: ICIAN SECTION Prognosis: Fair Condition at [...] the diagnosis listed and that she requires [facility] for greater 30 days. PHYSICIAN [...] your doctor if you can take an cicr-vuu-knndfnl medicine. ? Do not take aspirin, ibuprofen [...] irregular heartbeat. After you call 911, the retread mold operator may tell you to chew 1 [...] Where can you learn more? Go to [email or web address] and sign in to your [employer] account. Enter F759 in the Search Health Information box to learn more about Coronary Artery Bypass Graft: What to Expect atHome. If you do not have an account, please click on the Sign Up Now link. Current as of: August 29, 2018 Content Version: 12.3 8752-0740 [facility]. Care instructions adapted under license by [employer]. If youhave questions about a medical condition or this instruction, always ask your healthcare professional. [facility] disclaims any warranty or liability for your [...] Surgery in 2 week. Call office at [phone] for any problems. * Attachments The following attachments cannot be sent through Care Everywhere. * CABG (Coronary Artery Bypass Graft Surgery): General Info (Citizen Of [place]) * Aortic Valve Replacement Surgery: Post-op ([place]izen [place]) * Antiplatelets After Ischemic Stroke: General Info (Citizen Of [place]) * Elevated INR (Citizen [place]) documented in this encounter Advance Directives TypeDate [...] HC CT CHEST W/O CONTRAST Vasiliy Bethea, BARREL LOADER - STEAM FITTER HELPER [address] [place] [address] StatusReasonSpecialtyDiagnoses / ProceduresReferred By ContactReferred To ContactOpen Specialty Services Required Cardiac Rehabilitation Diagnoses CAD, multiple vessel Stvz [address] [place] [address] StatusReasonSpecialtyDiagnoses / ProceduresReferred By ContactReferred To ContactOpenCardiology Diagnoses Kidney insufficiency Hypertension, unspecified type Shortness of breath Hyperlipidemia, unspecified hyperlipidemia type Vitamin D deficiency disease Other specified diabetes mellitus with other specified complication, unspecified whether custodial insulin use (HCC) Procedures EKG 12 Lead Anshul Irizarry MD [address] [place] [address] StatusReasonSpecialtyDiagnoses / ProceduresReferred By ContactReferred To ContactOpenCardiology Diagnoses Aortic valve stenosis, etiology of cardiac valve disease unspecified Shortness of breath Hypertension, unspecified type Hyperlipidemia, unspecified hyperlipidemia type Vitamin D deficiency disease Procedures EKG 12 Lead Anshul Irizarry MD [address] [place] [address] StatusReasonSpecialtyDiagnoses / ProceduresReferred By ContactReferred To ContactPending ReviewVascular Lab Diagnoses CAD, multiple vessel Pre-op testing Bilateral carotid bruits Procedures VL DUP CAROTID BILATERAL VL DUP CAROTID BILATERAL HC EXTRACRANIAL BILAT STUDY Vasiliy Bethea, BARREL LOADER - STEAM FITTER HELPER [address] [facility] [address] [place] [address] [facility] [address] [place] [address] StatusReasonSpecialtyDiagnoses / ProceduresReferred By ContactReferred To ContactPending ReviewCardiology Diagnoses Hypertension, unspecified type Hyperlipidemia, unspecified hyperlipidemia type Other specified diabetes mellitus with other specified complication, unspecified whether orthotics assistant insulin use (HCC) Vitamin D deficiency disease Procedures EKG 12 Lead [facility] [address] [place] [address] SpecialtyDiagnoses / ProceduresReferred By ContactReferred To Contact Diagnoses Palpitations Procedures Cardiac event monitor Anshul Irizarry MD [address] [place] [address] Referral IDStatJacobvincenzo DateExpiration DateVisits RequestedVisits [id number]/18/[id number] / Procedures Referred By ContactReferred To Contact Diagnoses SOB (shortness of breath) Procedures Nuclear stress test with myocardial perfusion Anshul Irizarry MD [address] [place] [address] Referral IDStaJose DateExpiration DateVisits RequestedVisits [id number]/7/20246/ Assessments Diagnosis CAD, multiple vessel Coronary atherosclerosis of unspecified type of vessel, port gamble or graft Pre-op testing Preoperative examination, unspecified Diagnosis CAD, multiple vessel- Primary Coronary atherosclerosis of unspecified type of vessel, port gamble or graft S/P AVR (aortic valve replacement) [...] mellitus with other specified complication, unspecified whether custodial insulin use (HCC) Diagnosis Aortic valve stenosis, etiology of cardiac valve disease unspecified Shortness of breath Hypertension, unspecified type Hyperlipidemia, unspecified hyperlipidemia type Vitamin D deficiency disease Unspecified vitamin D deficiency Diagnosis CAD, multiple vessel Coronary atherosclerosis of unspecified type of vessel, port gamble or graft Pre-op testing Preoperative examination, unspecified Bilateral carotid bruits Hospital Course * Vasiliy Bethea APRN - STEAM FITTER HELPER - 07/24/2019 9:09 AM EST [facility] Cardiothoracic Surgery Discharge Summary Patient's Name/Date of : Eleanor Mcclain / 1950 (68 y.o.) Admission Date: 07/03/2019 5:13 AM Discharge Date: 07-24-19 Discharge Physician: Discharge Unit: CAR1 Discharge condition: fair Disposition: LTAC Reason For Admission: CABG + AVR HPI: Eleanor Mcclain is a 68 y.o. female who presents to [facility] for a CABG x3 and AVR. [...] planning beginning and patient going to [facility] Patient started on 5 mg of Coumadin [...] Chronic kidney disease CVA (cerebral vascular accident) ([facility]) 2011 no deficits Diabetes mellitus ([facility]) Dr. Richards Hyperlipidemia Hypertension Dr. Richards Kidney failure Wears dentures full upper plate, lower partial Wears prescription eyeglasses Wellness examination Dr. Richards seen in 03/2019 Past Surgical History: Procedure Laterality Date CABG WITH AORTIC VALVE REPLACEMENT N/A 07/03/2019 CABG CORONARY ARTERY BYPASS X3; AORTIC VALVE REPLACEMENT WITH 21MM INTUITY VALVE, ON PUMP, SWAN SHAWN, LOVE performed by Caro Teresa MD at [facility] CVOR CARDIAC CATHETERIZATION Bilateral 06/06/2019 Possible bypass & aortic valve replacement CHOLECYSTECTOMY COLONOSCOPY CORONARY ARTERY BYPASS GRAFT N/A 07/03/2019 CABG CORONARY ARTERY BYPASS REDO performed by Caro Teresa MD at [facility] CVOR GALLBLADDER SURGERY HC PICC POWERPICC DOUBLE 07/13/2019 HYSTERECTOMY STERNUM DEBRIDEMENT N/A 07/04/2019 STERNUM WASHOUT WITH STERNUM CLOSURE WITH STERNALOCK 360, 12 SELF-DRILLING LOCKING SCREWS 12MM, 4 SELFDRILLING LOCKING SCREWS 14MM. performed by Caro Teresa MD at [facility] CVOR Allergies Allergen Reactions Latex Anaphylaxis Eyes [...] file Gets together: Not on file Attends methodist service: Not on file Active member of [...] Your Medications These medications were sent to [address] - [phone] - F [phone] [facility] [facility] [address] amiodarone 200 MG tablet atorvastatin 40 MG [...] Surgery in 2 week. Call office at [phone] for any problems. Follow up with PCP and cardiology in 1-2 weeks. [facility] will manage coumadin and INR while [...] 07/24/2019 4:31 PM EST Occupational Therapy Facility/Department: [facility] CAR 1 Daily Treatment Note NAME: Eleanor [...] andfeet) UE Dressing: Moderate assistance;Setup;Increased time to complete(w/pullboat engineer shirt) LE Dressing: Moderate assistance;Maximum assistance;Setup;Increased time [...] Fluid Accumulation-Mild fluid accumulation, Extremities, Generalized 6. Bonderite Operator Strength-Not measured Nutrition Risk Level: Moderate Nutrient Needs: Estimated Daily Total Kcal: 1.2-1.4 ~>3019-7912 kcals/d Estimated Daily Protein (g): 1.2-1.4 gm/kg [...] 36 lb wt gain x 1 wk [place] Body Wt: 110 lb 3.7 oz (50 kg), % [place] Body 159% adm/ideal BMI Classification: BMI 25.0 [...] 12:08 PM EST [facility] - Progress Note Today's Date and Time: [...] improved response time, AA Infection Control Recommendations [place] Precautions Antimicrobial Stewardship Recommendations Discontinuation of therapy [...] History: Diagnosis Date Aortic stenosis - in [place] CAD (coronary artery disease) Chronic kidney disease CVA (cerebral vascular accident) ([facility]) 2011 no deficits Diabetes mellitus ([facility]) Dr. Richards Hyperlipidemia Hypertension Dr. Richards [...] LOVE performed by Caro Teresa MD at [facility] CVOR CARDIAC CATHETERIZATION Bilateral 06/06/2019 Possible bypass & aortic valve replacement CHOLECYSTECTOMY COLONOSCOPY CORONARY ARTERY BYPASS GRAFT N/A 07/03/2019 CABG CORONARY ARTERY BYPASS REDO performed by Caro Teresa MD at [facility] CVOR GALLBLADDER SURGERY HC PICC POWERPICC DOUBLE 07/13/2019 HYSTERECTOMY STERNUM DEBRIDEMENT N/A 07/04/2019 STERNUM WASHOUT WITH STERNUM CLOSURE WITH STERNALOCK 360, 12 SELF-DRILLING LOCKING SCREWS 12MM, 4 SELFDRILLING LOCKING SCREWS 14MM. performed by Caro Teresa MD at [facility] CVOR Medications: warfarin (COUMADIN) daily dosing (placeholder) [...] file Gets together: Not on file Attends methodist service: Not on file Active member of [...] or atelectasis. 3. Interval extubation. Medical Decision Tdsryd-Yovqzthp-Ylajk: 07/17/2019 10:16 AM - [place], [place] Incoming Lab Results From [facility] Specimen Information: Sputum, Suctioned Component Collected Lab Specimen Description 07/15/2019 11:48 AM [facility] [place] .SUCTIONED SPUTUM Special Requests 07/15/2019 11:48 AM [facility] - [place] NOT REPORTED Direct Exam 07/15/2019 11:48 AM [facility] [place] < 10 EPITHELIAL CELLS/LPF Direct Exam 07/15/2019 11:48 AM [facility] [place] >25 NEUTROPHILS/LPF Direct Exam Abnormal 07/15/2019 11:48 AM [facility] [place] PREDOMINANT ORGANISM: GRAM NEGATIVE RODS Direct Exam Abnormal 07/15/2019 11:48 AM [facility] [place] MIXED BACTERIAL MORPHOTYPES ALSO PRESENT ON GRAM STAIN. Culture Abnormal 07/15/2019 11:48 AM [facility] [place] YEAST, NOT SILVIO ALBICANS OR SILVIO DUBLINIENSIS HEAVY GROWTH Culture 07/15/2019 11:48 AM [facility] [place] NORMAL RESPIRATORY ROSEANNA SCANT GOWTH 07/16/2019 8:17 AM - [place] Incoming Lab Results From [facility] Specimen Information: Blood Component Collected Lab Specimen Description 07/15/2019 1:54 PM [facility] [place] .BLOOD Special Requests 07/15/2019 1:54 PM [facility] [place] L ARM 10 CC Culture 07/15/2019 1:54 PM [facility] [place] NO GROWTH 17 HOURS 07/13/2019 1:00 PM - [place] Incoming Lab Results From [facility] Specimen Information: Tracheal Aspirate Component Collected Lab Specimen Description 07/11/2019 4:58 PM [facility] [place] .TRACHEAL ASPIRATE Special Requests 07/11/2019 [...] data were reviewed Discussed with nursing Staff, data processing systems project planner Infection Control and Prevention measures reviewed All prior entries were reviewed Administer medications as ordered Prognosis: Guarded Discharge planning reviewed Follow up as outpatient. Thank you for allowing us to participate in the care of this patient. Please call with questions. Titus Wilkerson MD Pager: - Office: * Alannah Love - 07/24/2019 11:40 AM EST Speech Language Pathology Speech Language Pathology [facility] Cognitive Treatment Note Date: 07/24/2019 Patient [...] max verbal cues Problem Solving/Reasoning: Category Members [place]: 12/20 independently, increased to 20/20 with min verbal cues Plan: [x] Continue ST services [] Discharge from ST: Discharge recommendations: Further therapy recommended at discharge. Completed by Alannah Love, Eggs Inspector Clinician Co-signed by Ambika Jang M.A.CCC/ROCK DUST SPRAYER * Nicola Dutta PTA - 07/24/2019 10:52 AM EST Physical Therapy Facility/Department: [facility] CAR 1 Daily Treatment Note NAME: Eleanor [...] Patient's name: Eleanor Mcclain Patient's account/billing number: [id number] Patient's Date of : 1950 Age: 68 [...] PRN ABG Lab Results Component Value Date [id number] 31 07/21/2019 FIO2 15.0 07/21/2019 Laboratory findings: [...] breathing Sec clearance Pt ot * Titus Wilkerson MD - 07/23/2019 3:55 PM EST [facility] - Progress Note Today's Date and Time: [...] commands, oriented x 3 Infection Control Recommendations [place] Precautions Antimicrobial Stewardship Recommendations Discontinuation of therapy [...] Chronic kidney disease CVA (cerebral vascular accident) ([facility]) 2011 no deficits Diabetes mellitus ([facility]) Dr. Richards Hyperlipidemia Hypertension Dr. Richards [...] LOVE performed by Caro Teresa MD at [facility] CVOR CARDIAC CATHETERIZATION Bilateral 06/06/2019 Possible bypass & aortic valve replacement CHOLECYSTECTOMY COLONOSCOPY CORONARY ARTERY BYPASS GRAFT N/A 07/03/2019 CABG CORONARY ARTERY BYPASS REDO performed by Caro Teresa MD at [facility] CVOR GALLBLADDER SURGERY HC PICC POWERPICC DOUBLE 07/13/2019 HYSTERECTOMY STERNUM DEBRIDEMENT N/A 07/04/2019 STERNUM WASHOUT WITH STERNUM CLOSURE WITH STERNALOCK 360, 12 SELF-DRILLING LOCKING SCREWS 12MM, 4 SELFDRILLING LOCKING SCREWS 14MM. [facility] Medications: bumetanide 2 mg Oral BID enoxaparin [...] file Gets together: Not on file Attends methodist service: Not on file Active member of [...] or atelectasis. 3. Interval extubation. Medical Decision Jqqdbc-Obscight-Izpnx: 07/17/2019 10:16 AM - [place] Incoming Lab Results From [facility] Specimen Information: Sputum, Suctioned Component Collected Lab [...] - [place], [place] Incoming Lab Results From [facility] Specimen Information: Blood Component Collected Lab Specimen Description 07/15/2019 1:54 PM [facility] [place] .BLOOD Special Requests 07/15/2019 1:54 PM [facility] [place] L ARM 10 CC Culture 07/15/2019 1:54 PM [facility] [place] NO GROWTH 17 HOURS 07/13/2019 1:00 PM - [place] Incoming Lab Results From [facility] Specimen Information: Tracheal Aspirate Component Collected Lab Specimen Description 07/11/2019 4:58 PM [facility] [place] .TRACHEAL ASPIRATE Special Requests 07/11/2019 4:58 PM [facility] [place] NOT REPORTED Direct Exam 07/11/2019 4:58 PM [facility] [place] >25 NEUTROPHILS/LPF Direct Exam 07/11/2019 4:58 PM [facility] [place] < 10 EPITHELIAL CELLS/LPF Direct Exam 07/11/2019 4:58 PM [facility] - [place] NO SIGNIFICANT PATHOGENS SEEN Culture 07/11/2019 4:58 PM [facility] [place] NORMAL RESPIRATORY ROSEANNA LIGHT GROWTH Medical Decision Making-Other: Note: Labs, medications, radiologic studies were reviewed with personal review of films Large amounts of data were reviewed Discussed with nursing Staff, data processing systems project planner Infection Control and Prevention measures reviewed All prior entries were reviewed Administer medications as ordered Prognosis: Guarded Discharge planning reviewed Follow up as outpatient. Thank you for allowing us to participate in the care of this patient. Please call with questions. Titus Wilkerson MD Pager: - Office: * Aislinn Kaye OTA - 07/23/2019 2:30 PM EST Occupational Therapy Facility/Department: [facility] CAR 1 Daily Treatment Note NAME: Eleanor [...] ABIMBOLA ALICEA/Ada * Meseret Arechiga APRN - ENVIRONMENTAL TECH - 07/23/2019 2:13 PM EST Daily Progress [...] occlusion left A1 MONSTER, 90% stenosis R PRESS OPERATOR HEAVY DUTY. Results of imaging reviewed at length with [...] of the P2 segment of the right PRESS OPERATOR HEAVY DUTY. Additional 80% focal stenosis along the P2 segments of the bilateral outbound supervisor. 40% stenosis at the origins of the [...] of the P2 segment of the right PRESS OPERATOR HEAVY DUTY. Additional 80% focal stenosis along the P2 segments of the bilateral outbound supervisor. 40% stenosis at the origins of the [...] of the P2 segment of the right PRESS OPERATOR HEAVY DUTY. Additional 80% focal stenosis along the P2 segments of the bilateral outbound supervisor. 40% stenosis at the origins of the [...] MARICRUZ Guaman CNP Neuro Critical Care Pager [phone] 07/23/2019 2:13 PM * Kelli Keen, ROCK DUST SPRAYER - 07/23/2019 11:31 AM EST Speech Language Pathology Speech Language Pathology [facility] Speech Language Treatment Note Date: 07/23/2019 [...] ST: Discharge recommendations: [] Inpatient Rehab [] Fpc Facility [] Outpatient Therapy [] Follow up at trauma clinic [x] Other: Treatment completed by: Kelli Keen M.A. [facility]-ROCK DUST SPRAYER * Kelli Keen SLP - 07/23/2019 11:27 AM EST Speech Language Pathology Speech Language Pathology [facility] Dysphagia Treatment Note Date: 07/23/2019 Patient s Name: Eleanor Mcclain Diagnosis: dysphagia Patient Active Problem List Diagnosis Code CAD, multiple vessel I25.10 Encephalopathy G93.40 Acute cerebral infarction (HCC) I63.9 Seizure ([facility]) R56.9 Encephalopathy, unspecified G93.40 Ischemic stroke ([facility]) I63.9 Chronic a-fib I48.20 Anticoagulated Z79.01 Acute postoperative respiratory failure ([facility]) J95.821 Cervical stenosis of spinal canal [...] ST: Discharge recommendations: [] Inpatient Rehab [] Fpc Facility [] Outpatient Therapy [] Follow up at trauma clinic [x] Other: To be determined at discharge. Treatment completed by: Kelli Keen M.A. 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 First STS performed with BUE ROVING OR YARN COLOR CHECKER, second performed with UE support on RW. [...] Patient's name: Eleanor Mcclain Patient's account/billing number: [id number] Patient's Date of : 1950 Age: 68 [...] History: Diagnosis Date Aortic stenosis - in [place] CAD (coronary artery disease) Chronic kidney disease CVA (cerebral vascular accident) ([facility]) 2011 no deficits Diabetes mellitus ([facility]) Dr. Richards Hyperlipidemia Hypertension Dr. Richards Kidney failure Wears dentures full upper plate, lower partial Wears prescription eyeglasses Wellness examination Dr. Richards seen in 03/2019 Past Surgical History: Procedure Laterality Date CABG WITH AORTIC VALVE REPLACEMENT N/A 07/03/2019 CABG CORONARY ARTERY BYPASS X3; AORTIC VALVE REPLACEMENT WITH 21MM INTUITY VALVE, ON PUMP, [place], LOVE performed by Caro Teresa MD at [facility] CVOR CARDIAC CATHETERIZATION Bilateral 06/06/2019 Possible bypass & aortic valve replacement CHOLECYSTECTOMY COLONOSCOPY CORONARY ARTERY BYPASS GRAFT N/A 07/03/2019 CABG CORONARY ARTERY BYPASS REDO performed by Caro Teresa MD at [facility] CVOR GALLBLADDER SURGERY HC PICC POWERPICC DOUBLE 07/13/2019 HYSTERECTOMY STERNUM DEBRIDEMENT N/A 07/04/2019 STERNUM WASHOUT WITH STERNUM CLOSURE WITH STERNALOCK 360, 12 SELF-DRILLING LOCKING SCREWS 12MM, 4 SELFDRILLING LOCKING SCREWS 14MM. performed by Caro Teresa MD at [facility] CVOR Allergies: Allergies Allergen Reactions Latex Anaphylaxis [...] ABGs: No results found for: PHART, PO2ART, CVA1XNS INR: Recent Labs 07/21/1933807/22/1940807/23/19 06 INR 1.2 [...] of the P2 segment of the right PRESS OPERATOR HEAVY DUTY. Additional 80% focal stenosis along the P2 segments of the bilateral outbound supervisor. 40% stenosis at the origins of the [...] of the P2 segment of the right PRESS OPERATOR HEAVY DUTY. Additional 80% focal stenosis along the P2 segments of the bilateral outbound supervisor. 40% stenosis at the origins of the [...] of the P2 segment of the right PRESS OPERATOR HEAVY DUTY. Additional 80% focal stenosis along the P2 segments of the bilateral outbound supervisor. 40% stenosis at the origins of the [...] this chart was generated using voice recognition Only [employer] dictation software. Although every effort was made to ensure the accuracy of this automated leasing machine tender, some errors in leasing machine tender may have occurred. Raisa Loyola MS4 [facility]) 07/22/2019, 11:05 AM Raisa Loyola 07/23/2019, 9:06 AM * Dominguez Plummer PA - 07/23/2019 7:[address] surgical issues request transfer to medicine service. Appreciate assistance. Dominguez Plummer * Cole Arteaga DO - 07/23/2019 7:03 AM EST [employer] Actuary Progress Note Date: 07/23/2019 Patient name: Eleanor [...] of the P2 segment of the right PRESS OPERATOR HEAVY DUTY. Additional 80% focal stenosis along the P2 segments of the bilateral outbound supervisor. 40% stenosis at the origins of the [...] management per CT surgery Kanwal Michel MD, Sand Screener Operator Thank you for allowing us to participate in Eleanor Mcclain's care. Will follow with you. Attending Cloth Shrinking Supervisor Addendum: I have reviewed and performed the [...] questions. Cole Arteaga DO, FACC, GRACIA [employer] Actuary [facility] * Jaimee Estes RN - 07/22/2019 5:46 [...] All monitor alarms maintained. * Jacqueline Rudd, ROCK DUST SPRAYER - 07/22/2019 12:02 PM EST Speech Language Pathology Facility/Department: [facility] CAR 1 CLINICAL BEDSIDE SWALLOW EVALUATION NAME: [...] 2016, she had mild aortic stenosis with vymb-ue-toilikty mitral and tricuspid regurgitation, with normal ejection fraction. On 07/12/2017, she had another echocardiogram that showed an EF of 55% with severe dilatation of the left atrium and right atrium, and right ventricle normal.She had moderate aortic stenosis, read on an echocardiogram in [place]. Her last echocardiogram was on 03/30/2019, also at [place]. This showed normal EF of 55% to [...] This was noticed when she went to [facility] in 06/2018 and had difficulty with keeping [...] Moist (Dysphagia II) diet with Mildly Thick ([place] Thick) liquids as evidenced by no overt [...] more diet consistencies restricted Treatment Plan Requires ROCK DUST SPRAYER Intervention: Yes Duration/Frequency of Treatment: 2-3x per week D/C Recommendations: Further therapy recommended at discharge. Recommended Diet and Intervention Diet Solids Recommendation: Dysphagia Minced and Moist (Dysphagia II) Liquid Consistency Recommendation: Mildly Thick ([place]) Recommended Form of Meds: PO Recommendations: Dysphagia [...] Minced and Moist (Dysphagia II);Dysphagia Pureed (Dysphagia I);[place] - teaspoon;Thin - teaspoon Pain Level: 0 [...] and agree with results and recommendations: Patient;Family member;visiting nurse member consulted: children Education Patient Education: yes Patient Education Response: Verbalizes understanding Therapy Time ROCK DUST SPRAYER Individual Minutes Time In: 1134 Time Out: 1152 Minutes: 18 Jacqueline Rudd M.Carlos Eduardo. CCC-ROCK DUST SPRAYER 07/22/2019 12:03 PM * Enio Zarate MD [...] Patient's name: Eleanor Mcclain Patient's account/billing number: [id number] Patient's Date of : 1950 Age: 68 [...] Yes ABG Lab Results Component Value Date [id number] 31 07/21/2019 FIO2 15.0 07/21/2019 Laboratory findings: [...] of the P2 segment of the right PRESS OPERATOR HEAVY DUTY. Additional 80% focal stenosis along the P2 segments of the bilateral outbound supervisor. 40% stenosis at the origins of the [...] of the P2 segment of the right PRESS OPERATOR HEAVY DUTY. Additional 80% focal stenosis along the P2 segments of the bilateral outbound supervisor. 40% stenosis at the origins of the [...] of the P2 segment of the right PRESS OPERATOR HEAVY DUTY. Additional 80% focal stenosis along the P2 segments of the bilateral outbound supervisor. 40% stenosis at the origins of the [...] this chart was generated using voice recognition [employer] dictation software. Although every effort was made to ensure the accuracy of this automated leasing machine tender, some errors in leasing machine tender may have occurred. Luda Thapa M.D. Pulmonary and critical care attending [facility]) 07/22/2019, 11:05 AM Associated attestation - Jaimee Arellano DO - 07/22/2019 3:30 PM EST Attending Physician Statement I have discussed the care of Eleanor Mcclain, including pertinent history and exam findings, withthe pulmonary critical care fellow/resident/ENVIRONMENTAL TECH. I have seen and examined the patient and the mendoza elements of all parts of the encounter have been performed by me. I agree with the assessment, plan and orders as documented by the fellow/resident/ENVIRONMENTAL TECH. Covered from last night's episode. Currently on oxygen 5 L nasal cannula and adequate saturations. Actually feeding self although still very weak. Decreased breath sounds in the bases but otherwise generally clear. Chest x-ray a minimally worse however limited inspiration on current film limits comparison. Discussed with patient and family. Discharge planning for [facility] facility. Patientpassed swallow study. Hopefully transfer next 24 to 48 hours. * Cole Arteaga DO - 07/22/2019 7:25 AM EST [employer] Act[employer] Progress Note Date: 07/22/2019 Patient name: Eleanor [...] of the P2 segment of the right PRESS OPERATOR HEAVY DUTY. Additional 80% focal stenosis along the P2 segments of the bilateral outbound supervisor. 40% stenosis at the origins of the [...] 7:25 AM by: Kanwal Michel MD Attending Cloth Shrinking Supervisor Addendum: I have reviewed and performed the [...] you have any questions. Cole Arteaga DO, [facility], [facility] Insurance Actuary [facility] * Gee Hernandez RN - 07/21/2019 10:59 [...] Patient's name: Eleanor Mcclain Patient's account/billing number: [id number] Patient's Date of : 1950 Age: 68 [...] Yes ABG Lab Results Component Value Date [id number] 07/19/2019 FIO2 40.0 07/19/2019 Laboratory findings: Complete [...] of the P2 segment of the right PRESS OPERATOR HEAVY DUTY. Additional 80% focal stenosis along the P2 segments of the bilateral outbound supervisor. 40% stenosis at the origins of the [...] of the P2 segment of the right PRESS OPERATOR HEAVY DUTY. Additional 80% focal stenosis along the P2 segments of the bilateral outbound supervisor. 40% stenosis at the origins of the [...] of the P2 segment of the right PRESS OPERATOR HEAVY DUTY. Additional 80% focal stenosis along the P2 segments of the bilateral outbound supervisor. 40% stenosis at the origins of the [...] this chart was generated using voice recognition [employer] dictation software. Although every effort was made to ensure the accuracy of this automated leasing machine tender, some errors in leasing machine tender may have occurred. Luda Thapa M.D. Pulmonary and critical care attending [facility]) 07/21/2019, 10:58 AM Associated attestation - Jaimee Arellano DO - 07/21/2019 10:10 PM EST Attending Physician Statement I have discussed the care of Eleanor Mcclain, including pertinent history and exam findings, withthe pulmonary critical care fellow/resident/ENVIRONMENTAL TECH. I have seen and examined the patient and the mendoza elements of all parts of the encounter have been performed by me. I agree with the assessment, plan and orders as documented by the fellow/resident/ENVIRONMENTAL TECH. Earlier on rounds. Up in chair, slowly [...] DO - 07/21/2019 6:18 AM EST [employer] Actuary Progress Note Date: 07/21/2019 Patient name: Eleanor [...] of the P2 segment of the right PRESS OPERATOR HEAVY DUTY. Additional 80% focal stenosis along the P2 segments of the bilateral outbound supervisor. 40% stenosis at the origins of the [...] 6:18 AM by: Kanwal Michel MD Attending Cloth Shrinking Supervisor Addendum: I have reviewed and performed the [...] you have any questions. Cole Arteaga DO, [facility], GRACIA [employer] Act[employer] [facility] * Meseret Arechiga APRN - KATIE - [...] occlusion left A1 MONSTER, 90% stenosis R PRESS OPERATOR HEAVY DUTY. Results of imaging reviewed at length with [...] of the P2 segment of the right PRESS OPERATOR HEAVY DUTY. Additional 80% focal stenosis along the P2 segments of the bilateral outbound supervisor. 40% stenosis at the origins of the [...] of the P2 segment of the right PRESS OPERATOR HEAVY DUTY. Additional 80% focal stenosis along the P2 segments of the bilateral outbound supervisor. 40% stenosis at the origins of the [...] of the P2 segment of the right PRESS OPERATOR HEAVY DUTY. Additional 80% focal stenosis along the P2 segments of the bilateral outbound supervisor. 40% stenosis at the origins of the [...] Neuro Critical Care. Meseret Arechiga APRN - [facility] Neuro Critical Care Pager [phone] 07/20/2019 1:37 PM Associated attestation - Wilder [...] both lower extremities, leftupper extremity has weak religion teacher difficulty with antigravity Recommend therapy evaluations and [...] Patient's name: Eleanor Mcclain Patient's account/billing number: [id number] Patient's Date of : 1950 Age: 68 [...] Yes ABG Lab Results Component Value Date [id number] 29 07/19/2019 FIO2 40.0 07/19/2019 Laboratory findings: [...] of the P2 segment of the right PRESS OPERATOR HEAVY DUTY. Additional 80% focal stenosis along the P2 segments of the bilateral outbound supervisor. 40% stenosis at the origins of the [...] of the P2 segment of the right PRESS OPERATOR HEAVY DUTY. Additional 80% focal stenosis along the P2 segments of the bilateral outbound supervisor. 40% stenosis at the origins of the [...] of the P2 segment of the right PRESS OPERATOR HEAVY DUTY. Additional 80% focal stenosis along the P2 segments of the bilateral outbound supervisor. 40% stenosis at the origins of the [...] to ensure the accuracy of this automated leasing machine tender, some errors in leasing machine tender may have occurred. Manpreet Treadwell M.D. Pulmonary and critical care attending [facility], [facility]) 07/20/2019, 1:27 PM Attending Physician Statement [...] this chart was generated using voice recognition Only [employer] dictation software. Although every effort was made to ensure the accuracy of this automated leasing machine tender, some errors in leasing machine tender may have occurred. * Brynn Louie RN - 07/20/2019 1:04 PM EST flexiflow attempted putting flexiflow on ice will attempt again in 15 minutes * Loraine Mary RD, LD - 07/20/2019 12:14 PM EST Nutrition Assessment (Enteral Nutrition) Type and Reason for Visit: Reassess Nutrition Recommendations: -Continue NPO status per ROCK DUST SPRAYER rec's -Restart tube feeding as able of [...] Fluid Accumulation-Mild fluid accumulation, Extremities, Generalized 6. Bonderite Operator Strength-Not measured Nutrition Risk Level: High Nutrition Needs: Estimated Daily Total Kcal: 1.2-1.4 ~>5912-8615 kcals/d Estimated Daily Protein (g): 1.2-1.4 gm/kg [...] 36 lb wt gain x 1 wk [place] Body Wt: 110 lb 3.7 oz (50 kg), % [place] Body 159% adm/ideal BMI Classification: BMI 25.0 [...] Function Contact Number: [phone] * Lita Mancini, EXIT BOOTH AGENT - 07/20/2019 11:49 AM EST Physical Therapy Facility/Department: [facility] CAR 1 Daily Treatment Note NAME: Eleanor [...] Ambulation Assistance: Independent Transfer Assistance: Independent Active Store Clerk Cashier: Yes Mode of Transportation: Car 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 Verbal education provided. Recommendations: Requires ROCK DUST SPRAYER Intervention: Yes Duration/Frequency of Treatment: 3-5x per [...] MD - 07/20/2019 9:41 AM EST [employer] Actuary Progress Note Date: 07/20/2019 Patient name: Eleanor [...] of the P2 segment of the right PRESS OPERATOR HEAVY DUTY. Additional 80% focal stenosis along the P2 segments of the bilateral outbound supervisor. 40% stenosis at the origins of the [...] 07/11/2019 - extubated 07/19/2019 5. Intra OP LVOE LV function of 45%, was 51% on [...] by: Nuha Coronel MD Fellow, Cardiovascular Diseases [facility] Attending Physician Statement I have [...] study Janusz Duncan MD * Nicole Garcia, ROCK DUST SPRAYER - 07/20/2019 9:36 AM EST Speech Language Pathology Facility/Department: [facility] 1 CLINICAL BEDSIDE SWALLOW EVALUATION [...] tolerate any PO safely Treatment Plan Requires ROCK DUST SPRAYER Intervention: Yes Duration/Frequency of Treatment: 1-2x per [...] Patient Education Response: Verbalizes understanding Therapy Time ROCK DUST SPRAYER Individual Minutes Time In: 0900 Time Out: [...] 8:40 AM EST [facility] - Progress Note Today's Date and Time: [...] effusion> Will D/C Unasyn Infection Control Recommendations [place] Precautions Antimicrobial Stewardship Recommendations Discontinuation of therapy [...] History: Diagnosis Date Aortic stenosis - in [place] CAD (coronary artery disease) Chronic kidney disease CVA (cerebral vascular accident) (HCC) 2011 no deficits Diabetes mellitus ([facility]) Dr. Richards Hyperlipidemia Hypertension Dr. Richards [...] LOVE performed by Caro Teresa MD at [facility] CVOR CARDIAC CATHETERIZATION Bilateral 06/06/2019 Possible bypass & aortic valve replacement CHOLECYSTECTOMY COLONOSCOPY CORONARY ARTERY BYPASS GRAFT N/A 07/03/2019 CABG CORONARY ARTERY BYPASS REDO performed by Caro Teresa MD at [facility] CVOR GALLBLADDER SURGERY HC PICC POWERPICC DOUBLE 07/13/2019 HYSTERECTOMY STERNUM DEBRIDEMENT N/A 07/04/2019 STERNUM WASHOUT WITH STERNUM CLOSURE WITH STERNALOCK 360, 12 SELF-DRILLING LOCKING SCREWS 12MM, 4 SELFDRILLING LOCKING SCREWS 14MM. performed by Caro Teresa MD at [facility] Medications: amLODIPine 5 mg Oral Daily bumetanide [...] file Gets together: Not on file Attends methodist service: Not on file Active member of [...] or atelectasis. 3. Interval extubation. Medical Decision Mljgfa-Rfoagijq-Ocfid: 07/17/2019 10:16 AM - [place] Incoming Lab Results From [facility] Specimen Information: Sputum, Suctioned Component Collected Lab [...] - [place] Incoming Lab Results From [facility] Specimen Information: Blood Component Collected Lab Specimen Description 07/15/2019 1:54 PM [facility] .BLOOD Special Requests 07/15/2019 1:54 PM [facility] L ARM 10 CC Culture 07/15/2019 1:54 PM [facility] NO GROWTH 17 HOURS 07/13/2019 1:00 PM - [place] Incoming Lab Results From [facility] Specimen Information: Tracheal Aspirate Component Collected Lab [...] data were reviewed Discussed with nursing Staff, data processing systems project planner Infection Control and Prevention measures reviewed [...] - Office: * Vasiliy Bethea APRN - STEAM FITTER HELPER - 07/20/2019 7:45 AM EST [facility] Daily Progress [...] for the cardiothoracic surgery group today. VASILIY BETHAE APRN, ENVIRONMENTAL TECH * Wilder Bishop MD - 07/19/2019 4:44 PM EST Daily Progress Note Neuro Critical Care Patient Name: Eleanor Mcclain Patient : 1950 Room/Bed: [address] [place] [address] Code Status: Full Allergies: Allergies Allergen Reactions [...] was noted to have seizure-like activity per staff development nurse. She was loaded with Keppra and started [...] occlusion left A1 MONSTER, 90% stenosis R PRESS OPERATOR HEAVY DUTY. Results of imaging reviewed at length with [...] are grossly intact Motor Exam: adequate hand religion teacher right hands, wiggles toes on right, withdraws [...] Fina Cooper MD Neuro Critical Care Pager [phone] 07/19/2019 4:53 PM Neuro critical care: Improving [...] - BRYSON - 07/19/2019 1:47 PM EST [facility] Daily Progress [...] cardiothoracic surgery group today. VASILIY BETHEA APRN, ENVIRONMENTAL TECH * Janusz Duncan MD - 07/19/2019 11:07 AM EST [employer] Progress Note Date: 07/19/2019 Patient name: Eleanor [...] of the P2 segment of the right PRESS OPERATOR HEAVY DUTY. Additional 80% focal stenosis along the P2 segments of the bilateral outbound supervisor. 40% stenosis at the origins of the [...] by: Nuha Coronel MD Fellow, Cardiovascular Diseases [facility] Attending Physician Statement I have [...] Patient's name: Eleanor Mcclain Patient's account/billing number: [id number] Patient's Date of : 1950 Age: 68 [...] Yes ABG Lab Results Component Value Date [id number] 29 07/19/2019 FIO2 40.0 07/19/2019 Laboratory findings: [...] of the P2 segment of the right PRESS OPERATOR HEAVY DUTY. Additional 80% focal stenosis along the P2 segments of the bilateral outbound supervisor. 40% stenosis at the origins of the [...] of the P2 segment of the right PRESS OPERATOR HEAVY DUTY. Additional 80% focal stenosis along the P2 segments of the bilateral outbound supervisor. 40% stenosis at the origins of the [...] of the P2 segment of the right PRESS OPERATOR HEAVY DUTY. Additional 80% focal stenosis along the P2 segments of the bilateral outbound supervisor. 40% stenosis at the origins of the [...] this chart was generated using voice recognition Only [employer] dictation software. Although every effort was made to ensure the accuracy of this automated leasing machine tender, some errors in leasing machine tender may have occurred. Manpreet Treadwell M.D. Pulmonary and critical care attending [facility]) 07/19/2019, 9:39 AM Attending Physician Statement I [...] to ensure the accuracy of this automated leasing machine tender, some errors in leasing machine tender may have occurred. * Lita Mancini PTA [...] Treatments/week: 4-5x/wk Lita Mancini PTA * Titus Wilkerson MD - 07/19/2019 8:45 AM EST [facility] - Progress Note Today's Date and Time: [...] adjusted for renal failure Infection Control Recommendations [place] Precautions Antimicrobial Stewardship Recommendations Discontinuation of therapy [...] History: Diagnosis Date Aortic stenosis - in [place] CAD (coronary artery disease) Chronic kidney disease CVA (cerebral vascular accident) ([facility]) 2011 no deficits Diabetes mellitus ([facility]) Dr. Richards Hyperlipidemia Hypertension Dr. Richards [...] LOVE performed by Caro Teresa MD at [facility] CVOR CARDIAC CATHETERIZATION Bilateral 06/06/2019 Possible bypass & aortic valve replacement CHOLECYSTECTOMY COLONOSCOPY CORONARY ARTERY BYPASS GRAFT N/A 07/03/2019 CABG CORONARY ARTERY BYPASS REDO performed by Caro Teresa MD at [facility] CVNY GALLBLADDER SURGERY HC PICC POWERPICC DOUBLE 07/13/2019 HYSTERECTOMY STERNUM DEBRIDEMENT N/A 07/04/2019 STERNUM WASHOUT WITH STERNUM CLOSURE WITH STERNALOCK 360, 12 SELF-DRILLING LOCKING SCREWS 12MM, 4 SELFDRILLING LOCKING SCREWS 14MM. performed by Caro Teresa MD at [facility] Medications: bumetanide 1 mg Intravenous BID dexamethasone [...] file Gets together: Not on file Attends methodist service: Not on file Active member of [...] Pulmonary edema. Small left effusion. Medical Decision Vbtstb-Wecalewu-Lfodb: 07/17/2019 10:16 AM - [place], [place] Incoming Lab Results From [facility] Specimen Information: Sputum, Suctioned Component Collected Lab Specimen Description 07/15/2019 11:48 AM [facility] [place] .SUCTIONED SPUTUM Special Requests [...] - [place], [place] Incoming Lab Results From [facility] Specimen Information: Blood Component Collected Lab Specimen Description 07/15/2019 1:54 PM [facility] [place] .BLOOD Special Requests 07/15/2019 1:54 PM [facility] L ARM 10 CC Culture 07/15/2019 1:54 PM [facility] NO GROWTH 17 HOURS 07/13/2019 1:00 PM - [place], [place] Incoming Lab Results From [facility] Specimen Information: Tracheal Aspirate Component Collected Lab [...] data were reviewed Discussed with nursing Staff, data processing systems project planner Infection Control and Prevention measures reviewed [...] tube at 53, charted at 75 per shift engineer, air bolus heard, will have kub done to double check placement. Tube feed held for now * Donovan Mena MD - 07/18/2019 4:03 PM EST Pulmonary critical care progress note. Date and time: 07/18/2019 4:03 PM Patient's name: Eleanor Mcclain Patient's account/billing number: [id number] Patient's Date of : 1950 Age: 68 [...] Yes ABG Lab Results Component Value Date [id number] 29 07/18/2019 FIO2 40.0 07/18/2019 Laboratory findings: [...] of the P2 segment of the right PRESS OPERATOR HEAVY DUTY. Additional 80% focal stenosis along the P2 segments of the bilateral outbound supervisor. 40% stenosis at the origins of the [...] of the P2 segment of the right PRESS OPERATOR HEAVY DUTY. Additional 80% focal stenosis along the P2 segments of the bilateral outbound supervisor. 40% stenosis at the origins of the [...] of the P2 segment of the right PRESS OPERATOR HEAVY DUTY. Additional 80% focal stenosis along the P2 segments of the bilateral outbound supervisor. 40% stenosis at the origins of the [...] this chart was generated using voice recognition [employer] dictation software. Although every effort was made to ensure the accuracy of this automated leasing machine tender, some errors in leasing machine tender may have occurred. Manpreet Treadwell M.D. Pulmonary and critical care attending [facility]) 07/18/2019, 4:03 PM Attending Physician Statement [...] this chart was generated using voice recognition [employer] dictation software. Although every effort was made to ensure the accuracy of this automated leasing machine tender, some errors in leasing machine tender may have occurred. * Alondra Vincent RN - 07/18/2019 12:[address] bishop (neuro) and Meseret MASSEY (neuro-crit care) and Diego MASSEY rounded on patient. Patient followedsome commands for neuro not all. Checked cuff leak and no cuff leak, want to start steroids and seroquel Diego STEAM FITTER HELPER will confirm with Dr. Teresa if ok. [...] 9:15 AM EST [facility] - Progress Note Today's Date and Time: [...] adjusted for renal failure Infection Control Recommendations [place] Precautions Antimicrobial Stewardship Recommendations Discontinuation of therapy [...] Chronic kidney disease CVA (cerebral vascular accident) ([facility]) 2011 no deficits Diabetes mellitus ([facility]) Dr. Richards Hyperlipidemia Hypertension Dr. Richards [...] LOVE performed by Caro Teresa MD at [facility] CVNY CARDIAC CATHETERIZATION Bilateral 06/06/2019 Possible bypass & aortic valve replacement CHOLECYSTECTOMY COLONOSCOPY CORONARY ARTERY BYPASS GRAFT N/A 07/03/2019 CABG CORONARY ARTERY BYPASS REDO performed by Caro Teresa MD at [facility] CVNY GALLBLADDER SURGERY HC PICC POWERPICC DOUBLE 07/13/2019 HYSTERECTOMY STERNUM DEBRIDEMENT N/A 07/04/2019 STERNUM WASHOUT WITH STERNUM CLOSURE WITH STERNALOCK 360, 12 SELF-DRILLING LOCKING SCREWS 12MM, 4 SELFDRILLING LOCKING SCREWS 14MM. performed by Caro Teresa MD at [facility] Medications: bumetanide 1 mg Intravenous BID insulin [...] file Gets together: Not on file Attends methodist service: Not on file Active member of [...] Pulmonary edema. Small left effusion. Medical Decision Dvfxit-Zvlmsmuw-Fusie: 07/17/2019 10:16 AM - [place], [place] Incoming Lab Results From [facility] Specimen Information: Sputum, Suctioned Component Collected Lab [...] - [place], [place] Incoming Lab Results From [facility] Specimen Information: Blood Component Collected Lab Specimen Description 07/15/2019 1:54 PM [facility] .BLOOD Special Requests 07/15/2019 1:54 PM [facility] L ARM 10 CC Culture 07/15/2019 1:54 PM [facility] NO GROWTH 17 HOURS 07/13/2019 1:00 PM - [place], [place] Incoming Lab Results From [facility] Specimen Information: Tracheal Aspirate Component Collected Lab [...] data were reviewed Discussed with nursing Staff, data processing systems project planner Infection Control and Prevention measures reviewed [...] Vincent RN * Meseret Arechiga APRN - ENVIRONMENTAL TECH - 07/18/2019 8:33 AM EST Daily Progress [...] occlusion left A1 MONSTER, 90% stenosis R PRESS OPERATOR HEAVY DUTY. Results of imaging reviewed at length with [...] of the P2 segment of the right PRESS OPERATOR HEAVY DUTY. Additional 80% focal stenosis along the P2 segments of the bilateral outbound supervisor. 40% stenosis at the origins of the [...] of the P2 segment of the right PRESS OPERATOR HEAVY DUTY. Additional 80% focal stenosis along the P2 segments of the bilateral outbound supervisor. 40% stenosis at the origins of the [...] of the P2 segment of the right PRESS OPERATOR HEAVY DUTY. Additional 80% focal stenosis along the P2 segments of the bilateral outbound supervisor. 40% stenosis at the origins of the [...] APRN - KATIE Neuro Critical Care Pager [phone] 07/18/2019 8:33 AM Associated attestation - Wilder [...] - BRYS[place] - 07/18/2019 7:56 AM EST [facility] Daily Progress [...] cardiothoracic surgery group today. VASILIY BETHEA APRN, ENVIRONMENTAL TECH * Janusz Duncan MD - 07/18/2019 7:39 AM EST [employer] Progress Note Date: 07/18/2019 Patient name: Eleanor [...] of the P2 segment of the right PRESS OPERATOR HEAVY DUTY. Additional 80% focal stenosis along the P2 segments of the bilateral outbound supervisor. 40% stenosis at the origins of the [...] by: Nuha Coronel MD Fellow, Cardiovascular Diseases [facility] Attending Physician Statement I have [...] Fluid Accumulation-Mild fluid accumulation, Extremities, Generalized 6. Bonderite Operator Strength-Not measured Nutrition Risk Level: High Nutrition Needs: Estimated Daily Total Kcal: 20-25 ~>[id number] kcals/d Estimated Daily Protein (g): 1.2-2.0 gm/kg [...] 36 lb wt gain x 1 wk [place] Body Wt: 110 lb 3.7 oz (50 kg), % [place] Body 159% adm/ideal BMI Classification: BMI 25.0 [...] testing Procedures Echocardiogram transthoracic Echocardiogram transthoracic HC 5-Z-QHPY-LMT Vasiliy Bethea APRN - NP [address] [address] Vasiliy Bethea APRN - NP [address] [address] StatusReasonSpecialtyDiagnoses / ProceduresReferred By ContactReferred To ContactClosed Diagnoses CAD, multiple vessel Pre-op testing Procedures VL Vein Mapping Lower Bilateral VL Vein Mapping Lower Bilateral HCHG DUPLEX EXTREM VENOUS,BILAT Vasiliy Bethea APRN - NP [address] [address] Vasiliy Bethea APRN - NP [address] [address] StatusReasonSpecialtyDiagnoses / ProceduresReferred By ContactReferred To ContactClosedRadiology Diagnoses CAD, multiple vessel Pre-op testing Procedures CT Chest WO Contrast CT Chest WO Contrast CT CHEST W/O CONTRAST Vasiliy Bethea APRN - NP [address] [address] StatusReasonSpecialtyDiagnoses / ProceduresReferred By ContactReferred To Contact Diagnoses 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 Procedures MD CABG, ARTERY-VEIN, TWO CABG CORONARY ARTERY BYPASS X2; AORTIC VALVE REPLACEMENT, ON PUMP, JESSICA GUAMAN, LOVE Caro Teresa MD [address] [facility] [address] [place] [address] [facility] StatusReasonSpecialtyDiagnoses / ProceduresReferred By ContactReferred To ContactPending ReviewVascular Lab Diagnoses CAD, multiple vessel Pre-op testing Bilateral carotid bruits Procedures VL DUP CAROTID BILATERAL VL DUP CAROTID BILATERAL HC EXTRACRANIAL BILAT STUDY BetheaVasiliy, BARREL LOADER - STEAM FITTER HELPER [address] [facility] [address] [place] [address] [facility] [address] [place] [address] SpecialtyDiagnoses / ProceduresReferred By ContactReferred To Contact Diagnoses Palpitations Procedures Cardiac event monitor Anshul Irizarry MD [address] [place] [address] Referral IDStatusReasonStart DateExpiration DateVisits RequestedVisits [id number] DateCommentsMed Refill 07/01/2023SpecialtyDiagnoses / ProceduresReferred By ContactReferred To Contact Diagnoses Chronic a-fib (HCC) Chronic a-fib (HCC) [I48.20] Procedures MD ECHO TRANSESOPHAG R-T 2D W/PRB IMG ACQUISJ I&R MD ECHO TRANSESOPHAG R-T 2D W/PRB IMG ACQUISJ I&R Love during cath case Matty Lei MD [address] [place] [address] [facility] [address] [place] [address] Referral IDStatusReasonStart DateExpiration DateVisits RequestedVisits [id number] / ProceduresReferred By ContactReferred To Contact Diagnoses SOB (shortness of breath) Procedures Nuclear stress test with myocardial perfusion Anshul Irizarry MD [address] [place] [address] Referral IDStatusReasonStart DateExpiration DateVisits RequestedVisits [id number]Pfjsskr Sleeping ProblemMemory LossReasonCommentsFallReasonCommentsMed RefillReason CommentsMed Change RequestReasonOnset DateCommentsMed Vddjmd3805/28/2024Reason Onset DateCommentsfollow up koobaznijtx48/08/2024ReasonCommentsHypertension HyperlipidemiaDiabetesReasonOnset DateCommentsMed Gokbhh7509/03/2024ReasonComments Dxzlxz-pyDbykhdFuwbmairChrbzd-gwZaapwwWqkgf DateCommentsre: PT Recommendation 10/01/2024all Back nsuhxtupuSX77/12/2025[facility] contacted.ReasonOnset Date CommentsFormerly [facility], [facility]10/01/2024ReasonCommentsSkin Check Tasia Irizarry MD - 06/06/2019 6:16 AM EST H&P Notes (unrecognized sect ion and content) Tasia Irizarry M.D. [facility] [place] [address] May 10, 2019 Grayson Hernandez MD [address] [place] [address] RE: Eleanor Mcclain : [address] Hernandez: CHIEF COMPLAINT: 1. Severe aortic stenosis. 2. Shortness of breath. 3. Marked fatigue, possibly secondary to aortic stenosis. HISTORY OF PRESENT ILLNESS: Mrs. Mcclain is a pleasant 68-year-old female who has a history of aortic stenosis. In 2016, she had mild aortic stenosis with clqu-kk-eabsosvc mitral and tricuspid regurgitation, with normal ejection fraction. On 07/12/2017, she had another echocardiogram that showed an EF of 55% with severe dilatation of the left atrium and right atrium, and right ventricle normal. She had moderate aortic stenosis, read on an echocardiogram in [place]. Her last echocardiogram was on 03/30/2019, also at [place]. This showed normal EF of 55% to [...] This was noticed when she went to [facility] in 06/2018 and had difficulty with keeping [...] Long history of depression. 3. She has xun-ykfshqp-mydxepcof diabetes, which is under good control. 4. [...] house. He had a fight with his 48-zatl-nzoxij and ended up in half-way overnight. He is going through a possible divorce and lives with another woman. It has been very stressful for . They were trying to get temporary custody of their 14-year-old grandson, but the ghgowdgd-ol-exn will not do this. The znjzsbhy-mh-ett has filed for divorce from their son. She does not smoke, does not drink alcohol. Her has also retired.They went to [place] in June and she had difficulty keeping up with the [employer] group. She does notexercise. 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 REVIEW OF SYSTEMS: Cardiac as above. Other [...] x-ray was unremarkable. Echocardiogram on 03/30/2019, at [place] demonstrated ejection fraction greater than 50%, with mild dilatation of left atrium. She had normal right-sided chambers, with calcified aortic valve with severe aortic stenosis with an aortic valve area of 0.8 cm2. IMPRESSION: 1. Severe aortic stenosis by an echocardiogram at [place], where it showed an aortic valve area 0.8 cm2. 2. Marked loss of energy and shortness of breath with exertion over the last year but markedly worse in the last several months, probably secondary to symptomatic aortic stenosis. 3. Cih-ceoivgi-qsjkykwao diabetes, under good control, with her hemoglobin [...] the last several months. Her echocardiogram in [place] on 03/30/2019 showed aortic stenosis with an [...] on the second week in May in [place]. Risks and benefits have been outlined. Thank you very much for allowing me the privilege of seeing Mrs. Mcclain. If you have any questionson my thoughts, please do not hesitate to contact me. Sincerely, TASIA IRIZARRY documented in this encounter INFORMATION SOURCE (unrecogn ized section and content) DATE CREATED AUTHOR 06/27/2019 [facility] DATE CREATED AUTHOR AUTHOR'S ORGANIZ ATION 02/01/2020 [facility] DATE CREATED AUTHOR AUTHOR'S ORGANIZ ATION 06/23/2021 [facility] DATE CREATED AUTHOR AUTHOR'S ORGANIZ ATION 10/04/[address] 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 DATE CREATED AUTHOR AUTHOR'S ORGANIZ ATION 03/19/2025 [facility] Care Teams (unrecognized sec tion [...] DateEnd Date Grayson Hernandez MD PCP - Npsfgum72/26/19Team MemberRelationshipSpecialtyStart DateEnd Date Grayson Hernandez MD [address] [place] [address] (Fax) PCP - [facility]05/23/22 Grayson Henrandez MD [address] [place] [address] (Fax) [facility] - [facility] Grayson Hernandez MD [address] [place] [address] (Fax) PCP - [employer]1 Walker Monroy MD [address] [place] [address] Referring PhysicianNeurolog06/30/23 Tasia Irizarry MD [address] [place], [place] [phone] Referring PhysicianCardiology06/30/23 Kirstie Mcneil LISW-S [address] [address] Social WorkerBehavioral Health06/30/23Team MemberRelationshipSpecialtyStart Date End Date Grayson Hernandez MD PCP - Hdmxpxw62/26/19Team MemberRelationshipSpecialtyStart DateEnd Date Grayson Hernandez MD PCP - Nyfphlu43/26/19Team MemberRelationshipSpecialtyStart DateEnd Date Grayson Hernandez MD PCP - Zhddjlp02/26/19Team MemberRelationshipSpecialtyStart DateEnd Date Grayson Hernandez MD [address] [phone] (Fax) PCP - [facility]05/23/22 Grayson Hernadnez MD [address] [phone] (Fax) PCP - GeneralFamdly Medicine10/12/22 Walker Monroy MD [address] [place] [address] Referring PhysicianNeurolog06/30/23 Tasia Irizarry MD [address] [place], [place] [phone] Referring PhysicianCardiology06/30/23 Kirstie Mcneil LISW-S [address] [address] Social WorkerBehavioral Health06/30/23 Shannen Velazquez, ROGE Registered NurseFamily Medicine11/09/23Team MemberRelationshipSpecialtyStart Date End Date Grayson Hernandez MD [address] [place] [address] (Fax) PCP - [facility]05/23/22 Grayson Hernandez MD [address] [facility] [place] [address] (Fax) PCP - GeneralFamily Medicine10/12/22 [place] [address] [place] [address] Referring PhysicianNeurolog06/30/23 Tasia Irizarry MD [address] [place] [address] Referring PhysicianCardiology06/30/23 Kirstie Mcneil LISW-S [address] [facility] [address] [place] [address] Social WorkerBehavioral Health06/30/23 Shannen Velazquez, ROGE Registered [...] MemberRelationshipSpecialtyStart DateEnd Date Grayson Hernandez MD [address] [address] (Fax) PCP - Devoted1/ Grayson Hernandez MD [address] [place] [phone] (Fax) PCP - GeneralFamily Medicine10/12/22 Walker Monroy MD [address] [place] [address] Referring PhysicianNeurolog06/30/23 Tasia Irizarry MD [address] [place] [address] Referring PhysicianCardiology06/30/23 Kirstie Mcneil LISW-S [address] [place] [address] [facility]06/30/23 Shannen Velazquez, ROGE Registered NurseFamily Medicine11/09/23Team MemberRelationshipSpecialtyStart Date End Date Grayson Hernandez MD [address] [address] (Fax) PCP - Devoted1/ Grayson Hernandez MD [address] [address] (Fax) PCP - GeneralFamily Medicine10/12/22 Walker Monroy MD [address] [place] [address] Referring PhysicianNeurolog06/30/23 Tasia Irizarry MD [address] [place] [address] Referring PhysicianCardiology06/30/23 Kirstie Mcneil LISW-S [address] [place] [address] Social WorkerBehavioral Health06/30/23 Shannen Velazquez, ROGE Registered NurseFamily Medicine11/09/23Team MemberRelationshipSpecialtyStart Date End Date Grayson Hernandez MD [address] [place] [address] (Fax) PCP - Devoted05/23/2311 Grayson Hernandez MD [address] [place] [address] (Fax) PCP - GeneralFamily Medicine10/12/22 Walker Monroy MD [address] [place], [place] [phone] Referring PhysicianNeurolog06/30/23 Tasia Irizarry MD [address] [place] [address] Referring PhysicianCardiology06/30/23 Kirstie Mcneil LISW-S [address] [place] [address] Social WorkerBehavioral Health06/30/23 Shannen Velazquez, ROGE Registered NurseFamily Medicine11/09/23Team MemberRelationshipSpecialtyStart Date End Date Grayson Hernandez MD [address] [place] [address] (Fax) PCP - Devoted05/23/22 Grayson Hernandez MD [address] [place] [address] (Fax) PCP - GeneralFamily Medicine10/12/22 Walker Monroy MD [address] [place] [address] Referring PhysicianNeurolog06/30/23 Tasia Irizarry MD [address] [place] [address] Referring PhysicianCardiology06/30/23 Kirstie Mcneil LISW-S [address] [address] [facility]06/30/23 Shannen Velazquez RN Registered NurseFamily Medicine11/09/23Team MemberRelationshipSpecialtyStart Date End Date Grayson Hernandez MD [address] [place] [address] (Fax) PCP - Devoted05/23/22 Grayson Hernandez MD [address] [place] [address] (Fax) PCP - GeneralFamily Medicine10/12/22 Walker Monroy MD [address] [place] [address] Referring PhysicianNeurolog06/30/23 Tasia Irizarry MD [address] [place] [phone] Referring PhysicianCardiology06/30/23 Kirstie Mcneil LISW-S [address] [place] [address] Social WorkerBehavioral Health06/30/23 Shannen Velazquez, ROGE Registered NurseFamily Medicine11/09/23Team MemberRelationshipSpecialtyStart Date End Date Grayson Hernandez MD [address] [place] [address] PCP - Devoted05/23/22 Grayson Hernandez MD [address] [place] [address] (Fax) PCP - GeneralFamily Medicine10/12/22 Walker Monroy MD [address] [place] [address] Referring PhysicianNeurology2 Tasia Irizarry MD [address] [place] [phone] Referring PhysicianCardiology06/30/23 Kirstie Mcneil LISW-S [address] [place] [address] Social WorkerBehavioral Health06/30/23 Shannen Velazquez RN Registered NurseFamily Medicine11/09/23Team MemberRelationshipSpecialtyStart Date End Date Grayson Hernandez MD [address] [place] [address] (Fax) PCP - GeneralFamily Medicine10/12/22 Walker Monroy MD [address] [place] [address] Referring PhysicianNeurology2 Tasia Irizarry MD [address] [place] [address] Referring PhysicianCardiology06/30/23 Kirstie Mcneil LISW-S [address] [place] [address] Social WorkerBehavioral Health06/30/23 Shannen Velazquez RN Registered NurseFamily Medicine11/09/23Team MemberRelationshipSpecialtyStart Date End Date Grayson Hernandez MD [address] [place] [address] (Fax) PCP - GeneralFamily Medicine10/12/22 Walker Monroy MD [address] [place] [address] Referring PhysicianNeurolog06/30/23 Tasia Irizarry MD [address] [place] [address] Referring PhysicianCardiology06/30/23 Kirstie Mcneil LISW-S [address] [place] [address] Social WorkerBehavioral Health06/30/23 Shannen Velazquez RN Registered NurseFamily Medicine11/09/23Team MemberRelationshipSpecialtyStart Date End Date Grayson Hernandez MD [address] [address] (Fax) PCP - GeneralFamily Medicine10/12/22 Walker Monroy MD [address] [place] [address] Referring PhysicianNeurolog06/30/23 Tasia Irizarry MD [address] [place] [address] Referring PhysicianCardiology06/30/23 Kirstie Mcneil LISW-S [address] [place] [phone] Social WorkerBehavioral Health06/30/23 Shannen Velazquez RN Registered NurseFamily Medicine11/09/23Team MemberRelationshipSpecialtyStart Date End Date Grayson Hernandez MD [address] [place] [address] (Fax) PCP - GeneralFamily Medicine10/12/22 Walker Monroy MD [address] [place] [address] Referring PhysicianNeurolog06/30/23 Tasia Irizarry MD [address] [place] [address] Referring PhysicianCardiology06/30/23 Kirstie Mcneil LISW-S [address] [place] [address] Social WorkerBr[facility]06/30/23 Shannen Velazquez, RN Registered NurseFamily Medicine11/09/23Team MemberRelationshipSpecialtyStart Date End Date Grayson Hernandez MD [address] [place] [phone] (Fax) PCP - GeneralFamily Medicine12/21/21Team MemberRelationshipSpecialtyStart DateEnd Date Grayson Hernandez MD [address] [place] [phone] (Fax) PCP - GeneralFamily Medicine12/21/21 Name Effective Dates (start - stop) Status Members No Information Team MemberRelationshipSpecialtyStart DateEnd Date Grayson Hernandez MD [address] [place] [address] (Fax) PCP - GeneralFamily Medicine10/12/22 Walker Monroy MD [address] [place] [address] Referring PhysicianNeurolog06/30/23 Tasia Irizarry MD [address] [place] [address] Referring PhysicianCardiology06/30/23 Shannen Velazquez, RN Registered NurseFamily Medicine11/09/23Team MemberRelationshipSpecialtyStart Date End Date Grayson Hernandez MD [address] [place] [address] (Fax) PCP - GeneralFamily Medicine10/12/22 Walker Monroy MD [address] [place] [address] Referring PhysicianNeurology2 Tasia Irizarry MD [address] [place] [address] Referring PhysicianCardiology2 Shannen Velazquez, ROGE Registered NurseFamily Medicine11/09/23Team MemberRelationshipSpecialtyStart Date End Date Grayson Hernandez MD [address] [place] [address] (Fax) PCP - GeneralFamily Medicine10/12/22 Walker Monroy MD [address] [place] [address] Referring PhysicianNeurology2 Tasia Irizarry MD [address] [place] [address] Referring PhysicianCardiology06/30/23 Shannen Velazquez, ROGE Registered NurseFamily Medicine11/09/23Team MemberRelationshipSpecialtyStart Date End Date Grayson Hernandez MD [address] [place] [phone] (Fax) PCP - GeneralFamily Medicine10/12/22 Walker Monroy MD [address] [place] [address] Referring PhysicianNeurology2 Tasia Irizarry MD [address] [place] [address] Referring PhysicianCardiology06/30/23 Shannen Velazquez, ROGE Registered NurseFamily Medicine11/09/23Team MemberRelationshipSpecialtyStart Date End Date Grayson Hernandez MD [address] [place] [address] (Fax) PCP - GeneralFamily Medicine10/12/22 Walker Monroy MD [address] [place] [address] Referring PhysicianNeurology2 Tasia Irizarry MD [address] [place] [address] Referring PhysicianCardiology06/30/23 Shannen Velazquez, ROGE Registered NurseFamdly Medicine11/09/23Team MemberRelationshipSpecialtyStart Date End Date Grayson Hernandez MD [address] [place] [address] (Fax) PCP - GeneralFamily Medicine10/12/22 Walker Monroy MD [address] [place] [address] Referring PhysicianNeurology2 Tasia Irizarry MD [address] [place] [address] Referring PhysicianCardiology06/30/23 Shannen Velazquez RN Registered NurseFamily Medicine11/09/23Team MemberRelationshipSpecialtyStart Date End Date Grayson Hernandez MD [address] [place] [address] (Fax) PCP - GeneralFamily Medicine10/12/22 Walker Monroy MD [address] [place] [address] Referring PhysicianNeurology2 Tasia Irizarry MD [address] [place] [address] Referring PhysicianCardiology06/30/23 Shannen Velazquez RN Registered NurseFamily Medicine11/09/23Te MemberRelationshipSpecialtyStart Date End Date Grayson Hernandez MD [address] [place] [address] (Fax) PCP - GeneralFamily Medicine10/12/22 Walker Monroy MD [address] [place] [address] Referring PhysicianNeurology2 Tasia Irizarry MD [address] [place] [address] Referring PhysicianCardiology06/30/23 Shannen Velazquez RN Registered NurseFamily Medicine11/09/23Team MemberRelationshipSpecialtyStart Date End Date Grayson Hernandez MD [address] [place] [address] (Fax) PCP - GeneralFamily Medicine10/12/22 Walker Monroy MD [address] [place] [address] Referring PhysicianNeurology2 Tasia Irizarry MD [address] [place] [address] Referring PhysicianCardiology2 Shannen Velazquez, ROGE Registered NurseFamily Medicine11/09/23Team MemberRelationshipSpecialtyStart Date End Date Grayson Hernandez MD [address] [place] [phone] (Fax) PCP - GeneralFamily Medicine10/12/22 Walker Monroy MD [address] [place] [address] Referring PhysicianNeurology2 Tasia Irizarry MD [address] [place] [address] Referring PhysicianCardiology06/30/23 Shannen Velazquez, ROGE Registered NurseFamily Medicine11/09/23Team MemberRelationshipSpecialtyStart Date End Date Grayson Hernandez MD [address] [place] [address] (Fax) PCP - GeneralFamily Medicine10/12/22 Walker Monroy MD [address] [place] [address] Referring PhysicianNeurology2 Tasia Irizarry MD [address] [place] [address] Referring PhysicianCardiology2 Shannen Velazquez, ROGE [address] [place] [address] Registered NurseFamily Medicine11/09/23Team MemberRelationshipSpecialtyStart Date End Date Grayson Hernandez MD [address] [place] [address] (Fax) PCP - GeneralFamily Medicine10/12/22 aWlker Monroy MD [address] [place] [address] Referring PhysicianNeurology2 Tasia Irizarry MD [address] [place] [address] Referring PhysicianCardiology06/30/23 Shannen Velazquez, ROGE [address] [facility] [address] [place] [address] Registered NurseFamily Medicine11/09/23Team MemberRelationshipSpecialtyStart Date End Date Grayson Hernandez MD (Fax) PCP - [id number]/26/19Team MemberRelationshipSpecialtyStart DateEnd Date Grayson Hernandez MD (Fax) PCP - [id number]/26/19Team MemberRelationshipSpecialtyStart DateEnd Date Grayson Hernandez MD [address] [address] (Fax) PCP - GeneralFamily Medicine10/12/22 Grayson Hernandez MD [address] [address] (Fax) PCP - [facility] [place]05/23/2511 Walker Monroy MD [address] [place] [address] Referring PhysicianNeurolog06/30/23 Tasia Irizarry MD [address] [place] [address] Referring PhysicianCardiology06/30/23 Shannen Velazquez, ROGE [address] [address] Registered NurseFamily Medicine11/09/23Team MemberRelationshipSpecialtyStart Date End Date Grayson Hernandez MD [address] [place] [address] (Fax) PCP - GeneralFamily Medicine10/12/22 Grayson Hernandez MD [address] [address] (Fax) PCP - [facility] [place]05/23/2511 Walker Monroy MD [address] [place] [address] Referring PhysicianNeurolog06/30/23 Tasia Irizarry MD [address] [place] [address] Referring PhysicianCardiology2 Shannen Velazquez RN [address] [place] [address] Registered NurseFamily Medicine11/09/23Team MemberRelationshipSpecialtyStart Date End Date Grayson Hernandez MD [address] [place] [address] (Fax) PCP - GeneralFamily Medicine10/12/22 Grayson Hernandez MD [address] [place] [address] (Fax) PCP - [facility] [place]05/23/2511 Walker Monroy MD [address] [place] [address] Referring PhysicianNeurology2 Tasia Irizarry MD [address] [place] [address] Referring PhysicianCardiology06/30/23 Shannen Velazquez RN [address] [facility] [address] [place] [address] Registered NurseCl[facility]11/09/23Te MemberRelationshipSpecialtyStart Date End Date Grayson Hernandez MD [address] [place] [address] (Fax) PCP - GeneralFamily Medicine10/12/22 Grayson Hernandez MD [address] [place] [address] (Fax) PCP - [facility] [place]05/23/2511 Walker Monroy MD [address] [place] [address] Referring PhysicianNeurolog06/30/23 Tasia Irizarry MD [address] [place] [address] Referring PhysicianCardiology06/30/23 Shannen Velazquez, ROGE [address] [place] [address] Registered NurseFamily Medicine11/09/23 Team Status: Active Member Role/Relationship Status Dates Grayson Hernandez MD Primary Care Provider Active Team Status: Inactive Member Role/Relationship Status Dates Grayson Hernandez MD Primary Care Provider Active Start: March 11, 2025 End: March 11, 2025Pafigueroa Morrison APRN STEAM FITTER HELPER-CAttending Provider ActiveStart: March 11, 2025 End: March 11, 2025 Team Status: Inactive Member Role/Relationship Status Dates Grayson Hernandez MD Primary Care Provider Active Start: March 11, 2025 End: March 11, 2025Pafigueroa Morrison APRN STEAM FITTER HELPER-CAttending Provider ActiveStart: March 11, 2025 End: March 11, 2025 Team Status: Inactive Member Role/Relationship Status Dates DARRELL rGiffin RN [employer]TER [employer]PER-C Attending Provider Active Start: March 11, 2025 End: March 11, 2025Team MemberRelationshipSpecialtyStart DateEnd Date Grayson Hernandez MD [address] [place] [address] PCP - Human Grayson Hernandez MD [address] [place] [address] PCP - Devoted1 Grayson Hernandez MD [address] [place] [address] (Fax) PCP - GeneralFamily Medicine10/12/22 Grayson Hernandez MD [address] [place] [address] (Fax) PCP - [facility] [place]05/23/2511 Walker Monroy MD [facility] [place] [address] Referring PhysicianNeurolog06/30/23 Tasia Irizarry MD [address] [place] [address] Referring PhysicianCardiology06/30/23 Shannen Velazquez, ROGE [address] [place] [address] Registered NurseFamily Medicine11/09/23Team MemberRelationshipSpecialtyStart Date End Date Grayson Hernandez MD [address] [address] (Fax) PCP - Devoted05/23/2311 Grayson Hernandez MD [address] [place] [address] (Fax) PCP - GeneralFamily Medicine10/12/22 Grayson Hernandez MD [address] [place] [address] (Fax) PCP - [facility] [place]05/23/2511 Walker Monroy MD [address] [place] [address] Referring PhysicianNeurology2 Tasia Irizarry MD [address] [place] [address] Referring PhysicianCardiology06/30/23 Shannen Velazquez RN [address] [place] [address] Registered NurseFamily Medicine11/09/23Team MemberRelationshipSpecialtyStart Date End Date Grayson Hernandez MD [address] [place] [address] PCP - GeneralFamily Medicine10/12/22 Grayson Hernandez MD [address] [place] [address] PCP - [facility] [place] 05/23/2511 Walker Monroy MD [address] [place] [address] Referring PhysicianNeurolog06/30/23 Tasia Irizarry MD [address] [place] [address] Referring PhysicianCardiology06/30/23 Shannen Velazquez RN [address] [place] [address] Registered NurseFamily Medicine11/09/23 Scheduled Active and Recently [...] BE BASED ON THE PRIMARY CLINICAL RECORDS. [employer] [facility]. provides no warranty or guarantee of the accuracy or completeness of information in this document.
[2025-05-20 12:32] LABS: Thyroid Stimulating Hormone 1.121 uIU/mL (0.358-3.740)
[2025-05-20 12:33] LABS: Free T3 2.44 pg/mL (2.18-3.98)
== END 2025-05-20 11:00 | disposition home or self-care (01) ==
LOC: LAB 11:00
PROVIDERS: PCP Family Medicine; Visit Provider Family Medicine
DX: G93.32 Myalgic encephalomyelitis/chronic fatigue syndrome (principal); N25.81 Secondary hyperparathyroidism of renal origin; E03.9 Hypothyroidism, unspecified; E55.9 Vitamin D deficiency, unspecified; E11.21 Type 2 diabetes mellitus with diabetic nephropathy
CPT/HCPCS: 36415; 82306; 83036; 84439; 84443; 84481